=== PATIENT | male | born 1940 | race Caucasian/White ===

== ENCOUNTER 2021-04-15 14:46 | Emergency (ER) | payer MEDICARE, SELFPAY ==
[2021-04-15 14:47] VITALS: BP 133/67; PULSE 57; RESP 18; TEMP 37; O2SAT 96
[2021-04-15 15:28] LABS: Basophils Percent Auto 0.4 % (0.2-1.2); Eosinophils Absolute Auto 0.2 K/mm3 (0-0.3); Eosinophils Percent Auto 2.5 % (0-4.4); Hematocrit 41.8 % (42.0-52.0); Hemoglobin 13.5 g/dL (14.0-18.0); Immature Granulocyte Absolute 0.02 K/mm3 (0.00-0.031); Immature Granulocyte Percent A 0.2 % (0-0.5); Lymphocytes Absolute Auto 1.56 K/mm3 (0.9-3.2); Lymphocytes Percent Auto 18.8 % (18.3-44.2); Mean Corpuscular HGB Conc 32.3 g/dl (32-36); Mean Corpuscular Hemoglobin 30.8 pg (26-34); Mean Corpuscular Volume 95.4 fl (80-100); Mean Platelet Volume 11.1 fl (7.4-10.4); Monocytes Absolute Auto 0.5 K/mm3 (0.1-0.6); Monocytes Percent Auto 5.9 % (2.6-8.5); Neutrophils Percent Auto 72.2 % (45.5-73.1); Platelet Count Result 189 k/mm3 (150-375); Red Blood Count 4.38 M/mm3 (4.6-6.20); Red Cell Distribution Width 12.7 % (11.5-14.5); White Blood Count 8.3 K/mm3 (4.5-10.0)
[2021-04-15 15:35] LABS: Add Urine Microscopic? YES; Appearance Urine Cloudy (Clear); Bacteria Urine Trace /hpf; Bilirubin Urine Negative (Negative); Blood Urine 3+ (Negative); Color Urine Amber (Yellow); Glucose Urine UA Negative (Negative); Ketones Urine Negative (Negative); Leukocyte Esterase Ur 2+ LEU/UL (Negative); Mucus Urine Heavy /lpf; Nitrate Urine Negative (Negative); Protein Urine 2+ mg/dL (Negative); RBC Urine >75 /hpf (0-2); Squamous Epithelial Cell Urine Few /hpf (Few); WBC Urine >75 /hpf
[2021-04-15 15:39] LABS: Alanine Aminotransferase 34 U/L (4-50); Albumin Level 4.4 g/dL (3.5-5.1); Alkaline Phosphatase 74 U/L (38-126); Anion Gap 10 mmol/L (8-16); Aspartate Amino Transferase 33 U/L (17-59); Bilirubin,Total 0.7 mg/dL (0.2-1.3); Blood Urea Nitrogen 25 mg/dL (9-20); Calcium 9.3 mg/dL (8.4-10.2); Carbon Dioxide 25 mmol/L (22-30); Chloride 106 mmol/L (98-107); Estimated CRCL calculation 64 ml/min; Estimated Glomerular Filt Rate > 60; Glucose 137 mg/dL (65-110); Potassium 4.3 mmol/L (3.4-5.0); Sodium 141 mmol/L (137-145)
--- NOTE | 2021-04-15 16:34 | ED.MALEGU ---
HPI - Male Genitourinary General Chief complaint: Urogenital-Male Stated complaint: blood in urine Time Seen by Provider: 04/15/21 15:11 Source: patient Mode of arrival: ambulatory Limitations: no limitations History of Present Illness HPI Narrative: Patient is an 81 year old male who presents reporting blood in urine x 1 day. Patient reports awakening early am with difficulty urinating and urinary retention multiple times. Patient reports awakening again this afternoon and feeling like he was able to empty bladder. He reports dark urine with clots. He reports history of prostate cancer and prostatectomy. He denies pain at this time. He is not on blood thinners. Patient reports seeing urology in the past for same. Related Data Home Medications Medication Instructions Recorded Confirmed Co Q-10 08/25/19 Fish Oil 08/25/19 amlodipine 08/25/19 aspirin 08/25/19 loratadine [Claritin] mg 08/25/19 losartan 08/25/19 metoprolol tartrate 08/25/19 Allergies Allergy/AdvReac Type Severity Reaction Status Date / Time benazepril Allergy Unknown Unknown Verified 04/15/21 14:49 Wnkgaqv-Dqq-Rwg Reductase Allergy Unknown Unknown Verified 04/15/21 14:49 Inhibitor Review of Systems Review of Systems: Narrative: CONSTITUTIONAL: Denies fever, chills, or sweats. EYES: Denies visual changes, redness, or discharge. ENT: Denies rhinorrhea, congestion, sore throat, or otalgia. CARDIOVASCULAR: Denies chest pain, palpitations, or edema. RESPIRATORY: Denies cough or dyspnea. GASTROINTESTINAL: Denies abdominal pain, nausea, vomiting, or diarrhea. GENITOURINARY: Reports hematuria SKIN: Denies rash or itching. MUSCULOSKELETAL: Denies back pain, joint pain, or myalgia. NEUROLOGIC: Denies headache, numbness, dizziness, or weakness. PSYCHIATRIC: Denies anxiety or depression. [facility] Past Medical History Medical History (Updated 04/15/21 @ 16:48 by GREY Kaye) Basal cell carcinoma Brain bleed CAD (coronary artery disease) Constipation GERD (gastroesophageal reflux disease) Hepatitis B Hyperlipidemia Hypertension Hypothyroid Myocardial infarct Prediabetes Prostate CA Seizures Surgical History Surgical History H/O arthroscopy lt knee H/O prostatectomy Hx of CABG Hx of colonoscopy Hx of local excision of skin lesion S/P triple vessel bypass Family History Family History Father Malignant neoplasm of prostate Social History Social History Smoking status: Former smoker (quit at age 30 after 25 pack year) Gender identity (if verbalized by the patient): Male Comments At the time of signature, I have reviewed and agree with nursing past medical, surgical, social, and family history unless otherwise noted. Please see nursing chart for further information. There is no relevant family history pertinent to the presenting complaint. Exam Narrative: Exam Narrative: GENERAL: Well-appearing, well-nourished, and in no acute distress. HEAD: Normocephalic, atraumatic. EYES: EOMI. No redness or drainage. Conjunctiva are normal. ENT: Mucous membranes pink and moist. CHEST: No respiratory distress. Clear to auscultation. HEART: Regular rate and rhythm. GI: Soft, nontender without rebound, or guarding. No distention. Bowel sounds normal in all quadrants. MUSCULOSKELETAL: No bony tenderness. EXTREMITIES: Normal range of motion. No edema. SKIN: Warm, dry, no rash. NEURO: No focal deficits. Alert and oriented x3. Gait steady. PSYCH: Normal affect. No signs of depression or anxiety. Course Course Emergency Course: Bladder scan showed patient having approximately 50 mils in bladder after urination. Vital Signs Vital signs: Vital Signs Temperature 37.0 C 04/15/21 14:47 Pulse Rate 57 L 04/15/21 14:47 Respiratory Rate 18 04/15/21 14:47
[2021-04-15] MEDS: CIPROFLOXACIN 500 MG TAB PO (17:28)
[2021-04-15 17:29] VITALS: BP 142/74; PULSE 88; RESP 16; O2SAT 98
== END 2021-04-15 17:29 | disposition home or self-care (01) ==
PROVIDERS: Emergency Medicine; Emergency Provider Nurse Practitioner; PCP Family Medicine
DX: R31.9 Hematuria, unspecified (principal); I25.10 Atherosclerotic heart disease of native coronary artery without angina pectoris; E78.5 Hyperlipidemia, unspecified; I10 Essential (primary) hypertension; E03.9 Hypothyroidism, unspecified; I25.2 Old myocardial infarction; R73.03 Prediabetes; K21.9 Gastro-esophageal reflux disease without esophagitis; Z85.46 Personal history of malignant neoplasm of prostate; Z85.828 Personal history of other malignant neoplasm of skin; Z79.82 Long term (current) use of aspirin; Z95.1 Presence of aortocoronary bypass graft; Z90.79 Acquired absence of other genital organ(s); Z87.891 Personal history of nicotine dependence
CPT/HCPCS: 36415; 80053; 81001; 85025; 87077; 87086; 87088; 87186; 99283; A9270

== ENCOUNTER 2021-05-12 12:20 | Outpatient (CLI) | payer MEDICARE, SELFPAY ==
--- NOTE | ~2021-05-12 | XR_ITS ---
EXAMINATION: XR shoulder LT min 2V DATE: 05/12/2021 12:41 INDICATION: Left shoulder pain and stiffness. TECHNIQUE: 4 views of left shoulder were obtained. COMPARISON: None. FINDINGS: Bone alignment is normal. No fracture. Joint spaces are normal. Median sternotomy wires and mediastinal surgical clips are seen, likely from prior coronary artery bypass grafting. IMPRESSION: 1. Normal left shoulder. Reviewed, dictated and finalized at location B. IMPRESSION: 1. Normal left shoulder.
== END 2021-05-12 12:21 | disposition home or self-care (01) ==
PROVIDERS: PCP Family Medicine; Visit Provider Family Medicine
DX: M25.612 Stiffness of left shoulder, not elsewhere classified (principal)
CPT/HCPCS: 73030

== ENCOUNTER 2022-02-08 15:06 | Emergency (ER) | payer MEDICARE, SELFPAY ==
[2022-02-08] VITALS (14 sets, daily range): BP systolic 126–160; BP diastolic 62–78; PULSE 43–56; RESP 14–22; TEMP 36.5; O2SAT 93–98
--- NOTE | ~2022-02-08 | XR_ITS ---
EXAMINATION: XR chest 2V DATE: 02/08/2022 15:44 INDICATION: Dyspnea. TECHNIQUE: Frontal and lateral views of the chest were obtained. COMPARISON: Chest 2 views 11/26/2009, CT abdomen and pelvis 11/21/2018 FINDINGS: Again seen is mild elevation of left hemidiaphragm. A calcified right lung nodule and calci fied right hilar lymph nodes are consistent with old granulomatous disease. There is mild scarring at the lung apices. No pleural effusion or pneumothorax. The heart size is normal. Median sternotomy wi res and mediastinal surgical clips are seen, likely from prior coronary artery bypass grafting. IMPRESSION: 1. Stable mild scarring at the lung apices. Reviewed, dictated and finalized at location A.
--- NOTE | 2022-02-08 15:19 | ECG_ITS ---
Measurements Intervals Pauline Rate: 47 P: -1 WA: 167 QRS: 2 QRSD: 102 T: 15 QT: 420 QTc: 373 Interpretive Statements SINUS BRADYCARDIA ABNORMAL ECG Electronically Signed On 02-08-2022 15:29:57 CDT by Servando Cortez D.O.
--- NOTE | 2022-02-08 15:31 | ED.SOB ---
HPI - SOB/Dyspnea General Chief Complaint: Shortness of Breath/Dyspnea Stated Complaint: sob x 3 days Time Seen by Provider: 02/08/22 15:14 Source: patient History of Present Illness HPI Narrative: Patient presents with shortness of breath. Daniella has had shortness of breath for the past couple x-rays described a sensation of not getting enough air. His leg symptoms are little worse when he lays flat he denies any chest pain, cough, fevers, chills, nausea, vomiting, diaphoresis. Does report a history of a CABG many years ago however today symptoms are very different than his symptoms at that time. Related Data Home Medications Medication Instructions Recorded Confirmed Co Q-10 08/25/19 05/11/21 Fish Oil 08/25/19 05/11/21 amlodipine 08/25/19 05/11/21 aspirin 08/25/19 05/11/21 loratadine [Claritin] mg 08/25/19 05/11/21 losartan 08/25/19 05/11/21 metoprolol tartrate 08/25/19 05/11/21 Allergies Allergy/AdvReac Type Severity Reaction Status Date / Time benazepril Allergy Unknown Unknown Verified 05/11/21 12:53 Zkaqvjb-RWP-VhB Reductase Allergy Unknown Unknown Verified 05/11/21 12:53 Inhibitor [Dzlryig-Kpq-Lrb Reductase Inhibitor] Review of Systems Review of Systems: CONSTITUTIONAL: Denies fever, chills, or sweats. EYES: Denies visual changes, redness, or discharge. ENT: Denies rhinorrhea, congestion, sore throat, or otalgia. CARDIOVASCULAR: Denies chest pain, palpitations. RESPIRATORY: Reports shortness of breath GASTROINTESTINAL: Denies abdominal pain, nausea, vomiting, or diarrhea. GENITOURINARY: Denies dysuria or hematuria. SKIN: Denies rash or itching. MUSCULOSKELETAL: Denies back pain, joint pain, or myalgia. NEUROLOGIC: Denies headache, numbness, dizziness, or weakness. PSYCHIATRIC: Denies anxiety or depression. All systems reviewed & are unremarkable except as noted in HPI and below PMFSH Past Medical History Medical History Basal cell carcinoma BMI 31.0-31.9,adult Brain bleed CAD (coronary artery disease) Constipation Decreased ROM of left shoulder Elevated glucose GERD (gastroesophageal reflux disease) Hepatitis B Hyperlipidemia Hypertension Hypothyroid Myocardial infarct Prediabetes Prostate CA Screening for prostate cancer Seizures Surgical History Surgical History H/O arthroscopy lt knee H/O prostatectomy Hx of CABG Hx of colonoscopy Hx of local excision of skin lesion S/P triple vessel bypass Family History Family History Father Malignant neoplasm of prostate Social History Social History Smoking status: Former smoker Alcohol intake: never Gender identity (if verbalized by the patient): Male Exam Narrative: GENERAL: Well-appearing, well-nourished, and in no acute distress. HEAD: Normocephalic, atraumatic. EYES: PERRLA and EOMI. ENT: Nares clear, no rhinorrhea or epistaxis. Mucous membranes moist. NECK: Supple. No masses. No JVD CHEST: Clear to auscultation. No respiratory distress. No wheezes rales or rhonchi HEART: Regular bradycardia. No murmur heard. Normal peripheral pulses. ABDOMEN: Soft, nontender, nondistended, normal active bowel sounds. EXTREMITIES: Normal range of motion. 1+ pitting edema symmetric bilateral lower extremities SKIN: Warm, dry, no rash. NEURO: No focal deficits. Alert and oriented x3. PSYCH: Normal mood and affect. Course Reevaluation(s) Reevaluation #1: Patient resting comfortably results and plan reviewed with patient. Patient is comfortable with outpatient plan. Patient did an ambulatory pulse ox here in the ER there is no desaturation patient had no complaints during that time no dizziness no chest pain. Date: 02/08/22 Time: 17:25 Vital Signs Vital signs: Vital Signs Temperature 36.5 C 02/08
[2022-02-08 15:45] LABS: Basophils Absolute Auto 0.1 K/mm3 (0.0-0.1); Basophils Percent Auto 0.7 % (0.2-1.2); Eosinophils Absolute Auto 0.3 K/mm3 (0-0.3); Eosinophils Percent Auto 3.5 % (0-4.4); Hematocrit 41.7 % (42.0-52.0); Hemoglobin 13.7 g/dL (14.0-18.0); Immature Granulocyte Absolute 0.03 K/mm3 (0.00-0.031); Immature Granulocyte Percent A 0.4 % (0-0.5); Lymphocytes Absolute Auto 2.31 K/mm3 (0.9-3.2); Lymphocytes Percent Auto 32.8 % (18.3-44.2); Mean Corpuscular HGB Conc 32.9 g/dl (32-36); Mean Corpuscular Volume 94.3 fl (80-100); Mean Platelet Volume 11.6 fl (7.4-10.4); Monocytes Absolute Auto 0.5 K/mm3 (0.1-0.6); Monocytes Percent Auto 7.1 % (2.6-8.5); Neutrophils Absolute Auto 3.9 K/mm3 (1.3-6.7); Neutrophils Percent Auto 55.5 % (45.5-73.1); Platelet Count Result 198 k/mm3 (150-375); Red Blood Count 4.42 M/mm3 (4.6-6.20); Red Cell Distribution Width 12.7 % (11.5-14.5); White Blood Count 7.1 K/mm3 (4.5-10.0)
[2022-02-08 15:55] LABS: Alanine Aminotransferase 31 U/L (6-50); Albumin Level 4.3 g/dL (3.5-5.1); Alkaline Phosphatase 76 U/L (38-126); Anion Gap 10 mmol/L (8-16); Aspartate Amino Transferase 36 U/L (17-59); Bilirubin,Total 0.5 mg/dL (0.2-1.3); Blood Urea Nitrogen 23 mg/dL (9-20); Calcium 9.1 mg/dL (8.4-10.2); Carbon Dioxide 24 mmol/L (22-30); Chloride 106 mmol/L (98-107); Estimated CRCL calculation 64 ml/min; Estimated Glomerular Filt Rate > 60; Glucose 106 mg/dL (65-110); Potassium 4.7 mmol/L (3.4-5.0); Sodium 140 mmol/L (137-145)
[2022-02-08 16:13] LABS: Troponin I < 0.012 ng/mL (0.000-0.034)
== END 2022-02-08 17:42 | disposition home or self-care (01) ==
PROVIDERS: Emergency Provider Emergency Medicine; PCP Family Medicine
DX: R06.00 Dyspnea, unspecified (principal); I25.10 Atherosclerotic heart disease of native coronary artery without angina pectoris; I25.2 Old myocardial infarction; I10 Essential (primary) hypertension; E78.5 Hyperlipidemia, unspecified; E03.9 Hypothyroidism, unspecified; R73.03 Prediabetes; K21.9 Gastro-esophageal reflux disease without esophagitis; Z95.1 Presence of aortocoronary bypass graft; Z85.46 Personal history of malignant neoplasm of prostate; Z90.79 Acquired absence of other genital organ(s); Z79.82 Long term (current) use of aspirin; Z87.891 Personal history of nicotine dependence; R00.1 Bradycardia, unspecified
CPT/HCPCS: 36415; 71046; 80053; 84484; 85025; 93005; 99283

== ENCOUNTER 2022-07-11 12:33 | Emergency (ER) | payer MEDICARE, SELFPAY ==
[2022-07-11 12:48] VITALS: BP 143/63; PULSE 64; RESP 18; TEMP 36.7; O2SAT 99
--- NOTE | 2022-07-11 13:23 | ED.WOUNDLAC ---
HPI - Wound/Laceration General Chief Complaint: Wound/Laceration Stated Complaint: lac right hand Time Seen by Provider: 07/11/22 13:18 Source: patient Mode of arrival: ambulatory Limitations: no limitations History of Present Illness HPI narrative: Patient presents today with a laceration to the palm of his right hand that was sustained approximately 12 hours ago at home. He grabbed the blade of a small blending machine in his kitchen and it went into the palm of his hand reportedly approximately half an inch. He cleaned with peroxide after the injury. The wound has not stopped bleeding. Patient takes aspirin daily. Patient is up-to-date on his tetanus vaccine. Related Data Home Medications Medication Instructions Recorded Confirmed Co Q-10 08/25/19 05/15/22 Fish Oil 08/25/19 05/15/22 amlodipine 10 mg tablet 10 mg PO DAILY 05/15/22 07/11/22 aspirin 81 mg chewable tablet 1 tablet PO DAILY 05/15/22 05/15/22 loratadine 10 mg tablet (Claritin) 10 mg PO DAILY 05/15/22 05/15/22 losartan 25 mg tablet 25 mg PO DAILY 05/15/22 07/11/22 Allergies Allergy/AdvReac Type Severity Reaction Status Date / Time benazepril Allergy Unknown Unknown Verified 05/15/22 13:50 Ojwjdap-NCY-ShW Reductase Allergy Unknown Unknown Verified 05/15/22 13:50 Inhibitor [Ipzvxwp-Iem-Jog Reductase Inhibitor] Review of Systems Review of Systems: CONSTITUTIONAL: Denies body aches, fever, chills, or sweats. EYES: Denies visual changes, redness, or discharge. ENT: Denies rhinorrhea, congestion, sore throat, or otalgia. CARDIOVASCULAR: Denies chest pain, palpitations, or edema. RESPIRATORY: Denies cough or dyspnea. GASTROINTESTINAL: Denies abdominal pain, nausea, vomiting, or diarrhea. GENITOURINARY: Denies dysuria or hematuria. SKIN: Denies rash, itching. + Right hand laceration MUSCULOSKELETAL: Denies back pain, joint pain, or myalgia. NEUROLOGIC: Denies headache, numbness, tingling, or weakness. PSYCH: Denies depression or anxiety. [facility] Past Medical History Medical History Basal cell carcinoma BMI 31.0-31.9,adult BMI greater than 30 Brain bleed CAD (coronary artery disease) Constipation Decreased ROM of left shoulder Elevated glucose GERD (gastroesophageal reflux disease) Hepatitis B Hyperlipidemia Hypertension Hypothyroid Myocardial infarct Prediabetes Prostate CA Screening for prostate cancer Seizures Surgical History Surgical History H/O arthroscopy lt knee H/O prostatectomy Hx of CABG Hx of colonoscopy Hx of local excision of skin lesion S/P triple vessel bypass Family History Family History Father Malignant neoplasm of prostate Social History Social History Smoking status: Former smoker Alcohol intake: never Gender identity (if verbalized by the patient): Male Comments At time of signature, I have reviewed and agree with nursing past medical, surgical, social and family history unless otherwise noted. Please see nursing chart for further information. There is no relevant family history pertinent to the presenting complaint Exam Narrative: GENERAL: Well-appearing, well-nourished, and in no acute distress. HEAD: Normocephalic, atraumatic. EYES: EOMI. No redness or drainage. Conjunctivae normal. ENT: Mucous membranes pink and moist. NECK: Normal AROM. CHEST: No respiratory distress. EXTREMITIES: Normal range of motion. No edema. 1cm full thickness linear laceration to the palmar aspect of the right hand between the 2nd and 3rd metacarpals. Sensation intact. Capillary refill normal. Full range of motion of all fingers against resistance. Mild active bleeding. SKIN: Warm. Capillary refill normal. Normal skin turgor. NEURO: No focal deficits. Alert and
== END 2022-07-11 13:57 | disposition home or self-care (01) ==
PROVIDERS: Emergency Provider Nurse Practitioner; PCP Family Medicine
DX: S61.411A Laceration without foreign body of right hand, initial encounter (principal); W29.0XXA Contact with powered kitchen appliance, initial encounter; I25.10 Atherosclerotic heart disease of native coronary artery without angina pectoris; K21.9 Gastro-esophageal reflux disease without esophagitis; E78.5 Hyperlipidemia, unspecified; I10 Essential (primary) hypertension; E03.9 Hypothyroidism, unspecified; I25.2 Old myocardial infarction; R73.03 Prediabetes; Z85.46 Personal history of malignant neoplasm of prostate; Z85.828 Personal history of other malignant neoplasm of skin; Z90.79 Acquired absence of other genital organ(s); Z95.1 Presence of aortocoronary bypass graft
CPT/HCPCS: 12001; 99213; G0463

== ENCOUNTER 2023-01-11 12:56 | Outpatient (CLI) | payer MEDICARE, SELFPAY ==
--- NOTE | ~2023-01-11 | US_ITS ---
US scrotum doppler INDICATION: Evaluate growing mass TECHNIQUE: Testicular sonogram utilizing grayscale and color Doppler FINDINGS: The testes are normal in size and appearance. No focal lesions are seen. The right testes measures 4.5 x 4.8 x 2.1 cm centimeters, and the left testis measures 4 x 3 x 2 cm cm. There is cosme l vascular flow to both testes. The right and left epididymides appear normal. There are bilateral varicoceles. There is soft tissue protruding into the scrotal sac, likely bowel c ontent, consistent with hernia. IMPRESSION: 1. Bilateral varicoceles. 2: Right inguinal hernia with bowel protruding into the scrotal sac. Reviewed, dictated and finalized at location A.
== END 2023-01-11 12:57 | disposition home or self-care (01) ==
LOC: ANHIMG 12:58
PROVIDERS: PCP Family Medicine; Visit Provider Surgery
DX: I86.1 Scrotal varices (principal); K40.90 Unilateral inguinal hernia, without obstruction or gangrene, not specified as recurrent
CPT/HCPCS: 76870; 93976

== ENCOUNTER 2023-02-19 07:55 | Outpatient (CLI) | payer MEDICARE, SELFPAY ==
--- NOTE | ~2023-02-19 | XR_ITS ---
EXAMINATION: XR chest 2V DATE: 02/19/2023 08:30 INDICATION: Hypertension. Prior prostate cancer. TECHNIQUE: PA and lateral views of the chest were obtained. COMPARISON: Chest radiograph dated 02/08/2022 FINDINGS: Stable appearance of mild elevation of the left hemidiaphragm and mild biapical pleural-parenchymal s carring. Again seen is a small calcified pulmonary nodule at the right lower lung zone consistent wit h old granulomatous disease. No other airspace opacities, pulmonary edema, pleural effusion or pneumo thorax. Heart size is normal. Median sternotomy wires, ostial markers and mediastinal surgical clips consistent with prior coronary artery bypass grafting. Mild thoracic spondylosis. IMPRESSION: 1. No acute cardiopulmonary disease. Reviewed, dictated and finalized at location L.
--- NOTE | 2023-02-19 08:04 | ECG_ITS ---
Measurements Intervals [place] Rate: 75 P: TN: 0 QRS: 16 QRSD: 97 T: -11 QT: 372 QTc: 417 Interpretive Statements ATRIAL FIBRILLATION ABNORMAL ECG COMPARED TO ECG 02/08/2022 15:20:22 ATRIAL FIBRILLATION NOW PRESENT Electronically Signed On 02-19-2023 8:35:58 CDT by Servando Cortez D.O.
[2023-02-19 08:24] LABS: Basophils Percent Auto 0.6 % (0.2-1.2); Eosinophils Absolute Auto 0.2 K/mm3 (0-0.3); Eosinophils Percent Auto 2.5 % (0-4.4); Hematocrit 41.4 % (42.0-52.0); Hemoglobin 13.3 g/dL (14.0-18.0); Immature Granulocyte Absolute 0.02 K/mm3 (0.00-0.031); Immature Granulocyte Percent A 0.3 % (0-0.5); Lymphocytes Absolute Auto 2.31 K/mm3 (0.9-3.2); Lymphocytes Percent Auto 34.3 % (18.3-44.2); Mean Corpuscular HGB Conc 32.1 g/dl (32-36); Mean Corpuscular Hemoglobin 30.7 pg (26-34); Mean Corpuscular Volume 95.6 fl (80-100); Mean Platelet Volume 10.8 fl (7.4-10.4); Monocytes Absolute Auto 0.5 K/mm3 (0.1-0.6); Monocytes Percent Auto 6.8 % (2.6-8.5); Neutrophils Absolute Auto 3.7 K/mm3 (1.3-6.7); Neutrophils Percent Auto 55.5 % (45.5-73.1); Platelet Count Result 178 k/mm3 (150-375); Red Blood Count 4.33 M/mm3 (4.6-6.20); Red Cell Distribution Width 13.2 % (11.5-14.5); White Blood Count 6.7 K/mm3 (4.5-10.0)
[2023-02-19 08:29] LABS: Anion Gap 7 mmol/L (8-16); Blood Urea Nitrogen 19 mg/dL (9-20); Calcium 8.5 mg/dL (8.4-10.2); Carbon Dioxide 29 mmol/L (22-30); Chloride 104 mmol/L (98-107); Estimated Glomerular Filt Rate > 60; Glucose 106 mg/dL (65-110); Potassium 4.3 mmol/L (3.4-5.0); Sodium 140 mmol/L (137-145)
== END 2023-02-19 07:56 | disposition home or self-care (01) ==
PROVIDERS: PCP Family Medicine; Visit Provider Surgery
DX: K40.90 Unilateral inguinal hernia, without obstruction or gangrene, not specified as recurrent (principal); I48.91 Unspecified atrial fibrillation; R94.31 Abnormal electrocardiogram [ECG] [EKG]
CPT/HCPCS: 36415; 71046; 80048; 85025; 86850; 86900; 86901; 93005

== ENCOUNTER 2023-04-12 12:44 | Emergency (ER) | payer MEDICARE, SELFPAY ==
[2023-04-12 13:02] VITALS: BP 124/79; PULSE 78; RESP 20; TEMP 36.8; O2SAT 98
--- NOTE | 2023-04-12 13:12 | ED.SKABFB ---
HPI - Skin/Abscess/Foreign Bdy General Chief complaint: Skin/Abscess/Foreign Body Stated complaint: Insect Bite Time Seen by Provider: 04/12/23 13:03 Source: patient, family () and RN notes reviewed Mode of arrival: ambulatory Limitations: no limitations History of Present Illness HPI narrative: Patient presents today complaining of multiple yellow jacket stings to his bilateral hands, left forearm, and bilateral ankles as well as his upper lip yesterday. He was mowing and hit a nest. He has been taking Benadryl and applying some topical Benadryl cream with some relief. States he feels fine today, but wanted to come in for evaluation. Related Data Home Medications Medication Instructions Recorded Confirmed Co Q-10 200 mg QAM 08/25/19 04/12/23 Fish Oil 1,030 mg QAM 08/25/19 04/12/23 amlodipine 10 mg tablet 10 mg PO DAILY 05/15/22 04/12/23 aspirin 81 mg chewable tablet 2 tablet PO DAILY 05/15/22 04/12/23 loratadine 10 mg tablet (Claritin) 10 mg PO DAILY 05/15/22 04/12/23 losartan 25 mg tablet 25 mg PO DAILY 05/15/22 04/12/23 rivaroxaban 15 mg tablet (Xarelto) 15 mg PO DIRECTED 04/12/23 04/12/23 Allergies Allergy/AdvReac Type Severity Reaction Status Date / Time benazepril Allergy Unknown Unknown - Verified 04/12/23 12:54 PT UNABLE TO RECALL Cuzabvs-RQE-VrA Reductase Allergy Unknown Joint Pain Verified 04/12/23 12:54 Inhibitor & MUSCLE [Febpipu-Ydz-Dmp Reductase WEAKNESS Inhibitor] Review of Systems Review of Systems: CONSTITUTIONAL: Denies body aches, fever, chills, or sweats. EYES: Denies visual changes, redness, or discharge. ENT: Denies rhinorrhea, congestion, sore throat, or otalgia. CARDIOVASCULAR: Denies chest pain, palpitations, or edema. RESPIRATORY: Denies cough or dyspnea. GASTROINTESTINAL: Denies abdominal pain, nausea, vomiting, or diarrhea. GENITOURINARY: Denies dysuria or hematuria. SKIN: + insect sting MUSCULOSKELETAL: Denies back pain, joint pain, or myalgia. NEUROLOGIC: Denies headache, numbness, tingling, or weakness. PSYCH: Denies depression or anxiety. [facility] Past Medical History Medical History Basal cell carcinoma BMI 31.0-31.9,adult BMI greater than 30 Brain bleed CAD (coronary artery disease) Constipation Decreased ROM of left shoulder Elevated glucose GERD (gastroesophageal reflux disease) Hepatitis B Hyperlipidemia Hypertension Hypothyroid Myocardial infarct Prediabetes Prostate CA Screening for prostate cancer Seizures Surgical History Surgical History H/O arthroscopy lt knee H/O prostatectomy Hx of CABG 11/2009 - triple bypass surgery at [facility] Hx of colonoscopy 2012 - Dr. Yen Hx of local excision of skin lesion Family History Family History Father Malignant neoplasm of prostate Sibling Malignant neoplasm of prostate Social History Social History Smoking packs per day: 2 Smoking cigarettes per day: 40.0 Years smoked: 12 Smoking pack-years: 24.00 Smoking status: Former smoker Tobacco type: cigarettes Second hand tobacco smoke exposure: No Smoking end date: 09/23/70 Alcohol intake: current Alcohol use details: STATES MAYBE 1/2 CASE BEER/YEAR Substance use: never Substance use type: does not use Living arrangements: with family Occupation/Education: retired Gender identity (if verbalized by the patient): Male Spiritual care concerns: No Comments At time of signature, I have reviewed and agree with nursing past medical, surgical, social and family history unless otherwise noted. Please see nursing chart for further information. There is no relevant family history pertinent to the presenting complaint Exam Narrative: GENERAL: Well-ap
== END 2023-04-12 13:17 | disposition home or self-care (01) ==
PROVIDERS: Emergency Provider Nurse Practitioner; PCP Family Medicine
DX: T63.461A Toxic effect of venom of wasps, accidental (unintentional), initial encounter (principal); Z87.891 Personal history of nicotine dependence; I25.10 Atherosclerotic heart disease of native coronary artery without angina pectoris; K21.9 Gastro-esophageal reflux disease without esophagitis; E78.5 Hyperlipidemia, unspecified; I10 Essential (primary) hypertension; E03.9 Hypothyroidism, unspecified; R73.03 Prediabetes; Z85.828 Personal history of other malignant neoplasm of skin; Z85.46 Personal history of malignant neoplasm of prostate; Z79.01 Long term (current) use of anticoagulants; Z79.82 Long term (current) use of aspirin; Z95.1 Presence of aortocoronary bypass graft
CPT/HCPCS: 99211; G0463

== ENCOUNTER 2023-08-03 13:16 | Inpatient (IN) | payer MEDICARE, SELFPAY ==
[2023-07-30 10:21] VITALS: BMI 31.9
--- NOTE | 2023-07-30 10:36 | PC.NURSE ---
Report to the Outpatient Waiting Room, entrance under the green pavilion located off [facility], at time __0900 on date __08/02/23 . Planned Procedure Time: __1200 . Time changes happen often and if your time is changed the preop area will call you the afternoon before. - You and your visitor will be asked to self-screen and do not enter if you have any COVID symptoms. - A mask is optional within the hospital at this time. Patients may have clear liquids (water, carbonated beverages, clear teas, apple juice) until 3 hours prior to surgery (0900 AM) with a maximum of 20 ounces. - No food from midnight until time of surgery - Infants may have breast milk until 4 hours before surgery, infant formula 6 hours prior to surgery. - Children will be allowed to drink immediately following surgery. If applicable, please bring a bottle or sippy cup to assist with drinking. Juice, water, soda, and popsicles are readily available. For infants on formula, please bring formula the day of surgery. Pacifiers are allowed. Take the following medications with a SIP of water the morning of surgery: _AMLODIPINE, LEVOTHYROXINE_ DO NOT STOP ANY OF YOUR OTHER PRESCRIPTION MEDICATIONS PRIOR TO SURGERY ?EXCEPT THE FOLLOWING Medications to discontinue per DR. COOK/DR. PENNY - _XARELTO - 2 DAYS PRIOR TO SURGERY Date to take last dose___07/29/23 Please no make-up, nail south african, hairspray, perfume, deodorant, or body powder the day of surgery. No jewelry (including any body piercings) or valuables the day of surgery, leave them at home. Please take a shower or bath the night before, or the morning of, surgery with an antibacterial soap. Wear comfortable, loose fitting clothing. Children are encouraged to wear pajamas. - Jewelry must be removed prior to entering the operating room. Rings and piercings that are not removed may be cut off. - The hospital will not accept responsibility for valuables. - Please leave all valuables, including medications, at home the day of surgery. If you are going home after surgery, a licensed local company flatbed truck driver must drive you home. - NO public transportation without another adult if you receive anesthesia. - We recommend that an adult stay with you for 24 hours following discharge. - We also recommend that you do not drive, make important decision, drink alcoholic beverages, or take any drugs that were not prescribed by your health care provider for at least 24 hours after your discharge time. For Pediatric surgeries, we recommend two adults accompany the child home. Follow any additional instructions given to you from your surgeon. If you or anyone in your household have experienced Covid symptoms in the past week, please notify your surgeon or the nurse liaison at the phone number below for possible testing. Telephone instructions given to ____PT and asked if any additional questions and then verbalized understanding. Patient advised to call surgeon office or pre surgery nurse liaison [phone] if any additional questions.
--- NOTE | 2023-08-01 12:58 | PM.IMHP ---
H&P: HPI History of Present Illness Date/Time: 08/01/23 12:58 Chief Complaint: Large right inguinal hernia Narrative: The patient is an 83-year-old man who has had a right inguinal hernia for many years. He was seen in the office last spring and found to have right inguinal hernia that extended through the inguinal canal and also occupied the right hemiscrotum. He had a scrotal ultrasound several months ago which showed bilateral varicoceles and also bowel protruding into the right-sided hernia. Patient was scheduled to have surgery February 21, 2023 but this was canceled due to cardiac concerns. He had further testing and was then felt to be medically optimized to proceed. He does take Xarelto which has been held. He is taken to surgery now for repair of a very large right inguinal hernia. Also no repair the is the patient has a history of intracranial hemorrhage, coronary artery bypass grafting as well as prostatectomy for prostate cancer. Review of Systems Review of Systems: All systems reviewed & are unremarkable except as noted in HPI and below (HPI and those items noted below) Constitutional: Constitutional: Denies chills and Denies fever(s) Cardiovascular: Cardiovascular: Denies chest pain, Denies diaphoresis, Denies dyspnea and Denies paroxysmal nocturnal dyspnea Respiratory: Respiratory: Denies chest congestion, Denies cough and Denies dyspnea Integumentary/Breasts: Skin/Breast: Denies lesions and Denies rash PMFSH Past Medical History Medical History Basal cell carcinoma BMI 31.0-31.9,adult BMI 32.0-32.9,adult BMI greater than 30 Brain bleed CAD (coronary artery disease) Constipation Decreased ROM of left shoulder Elevated glucose GERD (gastroesophageal reflux disease) Hepatitis B Hyperlipidemia Hypertension Hypothyroid Myocardial infarct Paroxysmal atrial fibrillation Prediabetes Prostate CA Screening for prostate cancer Seizures Surgical History Surgical History H/O arthroscopy lt knee H/O prostatectomy Hx of CABG 11/2009 - triple bypass surgery at [facility] [place] Hx of colonoscopy 2012 - Dr. Yen Hx of local excision of skin lesion Family History Family History Father Malignant neoplasm of prostate Sibling Ovarian cancer Mother , epilepsy No problems noted. Sibling No problems noted. Social History Social History Smoking packs per day: 2 Smoking cigarettes per day: 40.0 Years smoked: 12 Smoking pack-years: 24.00 Smoking status: Former smoker Tobacco type: cigarettes Second hand tobacco smoke exposure: No Smoking end date: 09/23/70 Alcohol intake: current Alcohol use details: RARELY - 1/2 CASE BEER/YR Substance use: never Substance use type: does not use Lack of Transportation: No Lack of Food: Never True Current Housing: I Have Housing Concerned About Future Housing: No Difficulty Paying Gas/Electric Bills: No Difficulty Paying for Meds: No Currently Unemployed: No Education: High School Diploma/GED Difficulty w/ Childcare or Family Care: No Living arrangements: with family Occupation/Education: retired 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
[2023-08-02] VITALS (13 sets, daily range): BP systolic 109–156; BP diastolic 67–88; PULSE 70–102; RESP 14–30; TEMP 36.7–37.2; O2SAT 92–100
[2023-08-02] MEDS: ACETAMINOPHEN 500 MG TABLET 1000 MG PO (10:21)
[2023-08-02] MEDS: LACTATED RINGERS 1,000 ML 30 ML IV CONT ×2 (11:05→14:17)
[2023-08-02] MEDS: KETOROLAC 15 MG/ML VIAL (*BKC) IV PUSH (11:05)
--- NOTE | 2023-08-02 11:10 | WPDANESEPPF ---
Anes - Initial Pre Proc Eval Procedure: Operation Date: 08/02/23 12:00 Proposed Procedures p Open Right Inguinal Hernia Repair with Mesh - Jaxon Armijo MD Date/Time: 08/02/23 11:10 Surgeon: Jaxon Armijo MD Pre Op Diagnosis: right inguinal hernia Patient Data Age: 83 Gender: M Height: 1.83 m Weight: 106.3 kg Last Vital Signs Temp 98.4 F 08/02/23 10:30 Pulse 70 08/02/23 10:30 Resp 16 08/02/23 10:30 BP 134/81 08/02/23 10:30 Pulse Ox 97 08/02/23 10:30 O2 Del Method Room Air 08/02/23 10:30 Allergies Allergy/AdvReac Type Severity Reaction Status Date / Time benazepril Allergy Unknown Unknown - Verified 08/02/23 10:15 PT UNABLE TO RECALL Ihbsxut-UVZ-XsO Reductase Allergy Unknown Joint Pain Verified 08/02/23 10:15 Inhibitor & MUSCLE [Nspfsvb-Nix-Ktg Reductase WEAKNESS Inhibitor] halobetasol AdvReac Rash Verified 08/02/23 10:15 Home Medications Medication Instructions Recorded Confirmed Type amlodipine 10 mg tablet 10 mg PO DAILY 05/15/22 08/02/23 History aspirin 81 mg chewable tablet 2 tablet PO DAILY 05/15/22 08/02/23 History loratadine 10 mg tablet (Claritin) 10 mg PO DAILY 05/15/22 08/02/23 History losartan 25 mg tablet 25 mg PO DAILY 05/15/22 08/02/23 History levothyroxine 100 mcg tablet 100 mcg PO DAILY #90 tabs 06/10/23 08/02/23 Rx coenzyme Q10 30 mg capsule (Co 30 mg PO DAILY 06/11/23 08/02/23 History Q-10) omega 4-ung-wix-fish oil 60 mg-90 1 cap PO DAILY 06/11/23 08/02/23 History mg-500 mg capsule (Fish Oil) rivaroxaban 20 mg tablet (Xarelto) 20 mg PO QPM 07/30/23 08/02/23 History Patient hx anesthesia problems: none Family hx anesthesia problems: none Results Review: All pre-operative results and documents have been reviewed as part of the pre-operative evaluation. [facility] Past Medical History Medical History Basal cell carcinoma BMI 31.0-31.9,adult BMI 32.0-32.9,adult BMI greater than 30 Brain bleed CAD (coronary artery disease) Constipation Decreased ROM of left shoulder Elevated glucose GERD (gastroesophageal reflux disease) Hepatitis B Hyperlipidemia Hypertension Hypothyroid Myocardial infarct Paroxysmal atrial fibrillation Prediabetes Prostate CA Screening for prostate cancer Seizures Surgical History Surgical History H/O arthroscopy lt knee H/O prostatectomy Hx of CABG 11/2009 - triple bypass surgery at [facility] Hx of colonoscopy 2012 - Dr. Yen Hx of local excision of skin lesion Family History Family History Father Malignant neoplasm of prostate Sibling Ovarian cancer Mother , epilepsy No problems noted. Sibling No problems noted. Social History Social History Smoking packs per day: 2 Smoking cigarettes per day: 40.0 Years smoked: 12 Smoking pack-years: 24.00 Smoking status: Former smoker Tobacco type: cigarettes Second hand tobacco smoke exposure: No Smoking end date: 09/23/70 Alcohol intake: current Alcohol use details: RARELY - 1/2 CASE BEER/YR Substance use: never Substance use type: does not use Lack of Transportation: No Lack of Food: Never True Current Housing: I Have Housing Concerned About Future Housing: No Difficulty Paying Gas/Electric Bills: No Difficulty Paying for Meds: No Currently Unemployed: No Education: High School Diploma/GED Difficulty w/ Childcare or Family Care: No Living arrangements: with family Occupation/Education: retired 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
--- NOTE | 2023-08-02 11:47 | WPDHPUPDATE1 ---
History and Physical Update Update Date/Time: 08/02/23 11:47 History and Physical has been reviewed, including an updated exam of the patient. There are NO changes in the patient's condition. Risks, benefits, and alternatives have been discussed and questions answered. Patient agrees to proceed with procedure.
[2023-08-02] MEDS: ceFAZolin 2 GM/D5W 50 ML 2 GM/50 ML BAG IVPB (12:00)
[2023-08-02] MEDS: LIDO 1%/EPINEPHRINE 1:100,000 50 ML VIAL INFILTRATE (13:59)
--- NOTE | 2023-08-02 14:40 | W.PM.PROC2 ---
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 Not only did the hernia go into the scrotum but the scrotum was greatly enlarged due to the bowel that had traversed the hernia defect and was residing in his abdomen. This had become very uncomfortable with the scrotal enlargement and longstanding hernia. Findings Very large right inguinal hernia with at least 70% of his small intestine chronically viscera rated in the hernia sac residing in the scrotum. There was not any evidence of a sliding hernia. Procedure lasted twice as long as normal. Huge hernia had be dissected out of the scrotum and then hernia sac opened with bowel slowly reintroduced into the abdomen. Extra-large plug and patch of PerFix Light was required for the defect. Description of Procedure Patient was taken to surgery and anesthesia was introduced. This was general anesthesia with LMA. The right inguinal region as well as the greatly enlarged scrotum and the rest of the genitalia were prepped and draped. Proposed incision was marked on the skin. Local was infiltrated in the area of the anticipated incision and in the deeper subcutaneous tissues. Incision was made and dissection was carried down through the subcutaneous and through Reji's fascia. At that point we encountered the extremely large hernia. I dissected back to where I could find the external oblique aponeurosis laterally. I had to use 2 very large self-retaining retractors to expose the area. I exposed the external oblique aponeurosis laterally and exposed the hernia as it emanated from the external ring. Additional local was infiltrated deep to the external oblique aponeurosis. I then opened the aponeurosis laterally and extended this incision medially through the external ring. The ilioinguinal nerve was diminutive where it exited the external ring. I divided the ileoinguinal nerve and discarded it. I then carefully dissected around the hernia at the level of the pubic tubercle. I divided some of the cremasteric fibers in this location to mobilize this part of the hernia further. At this point I then dissected in the anteromedial cord looking to find the hernia sac. There were several layers of filmy and distorted tissue. Eventually I came to what appeared to be the hernia sac. I then carefully dissected this from the layers associated with the spermatic cord and scrotum. Slowly the bowel and herniated contents were brought up out of the scrotum and were then in the field created by the inguinal hernia dissection. This was essentially bloodless. Cautery had been used for hemostasis but there was little need for cautery. I then carefully dissected the spermatic cord and its structures away from the hernia sac. These were caudal and lateral to the main hernia. As I tried further mobilize the hernia sac I went ahead and divided the sac. I divided it had a significant length expecting to be able to bring the herniated bowel out and reduce this bowel segment by segment. As I did this, I realized that this was actually not the hernia sac. There was a deeper hernia sac. I then dissected out this tissue and discarded it. Now having the actual hernia sac I opened the hernia sac and was able to access the chronically eviscerated bowel. I followed this back to the indirect hernia defect which was sizable as 1 might expect. I then used a ring forceps and carefully introduced the small bowel back into the abdomen. This was a slow, difficult process as there was so much chronically incarcerated bowel that the defect to reduce the bowel was quite small. Eventually, I was able to reduce enough of the smal
[2023-08-02] MEDS: LACTATED RINGERS 1,000 ML 100 ML IV CONT (17:00)
[2023-08-02 17:03] LABS: Estimated CRCL calculation 77 ml/min; Estimated Glomerular Filt Rate > 60
[2023-08-02] MEDS: ACETAMINOPHEN 500 MG TABLET PO (18:38)
[2023-08-02] MEDS: SIMETHICONE 80 MG TAB.CHEW PO (20:13)
--- NOTE | 2023-08-02 20:26 | PC.NURSE ---
pt up and ambulated to restroom this shift x1 assist with walker.
[2023-08-02] MEDS: HYDROcodone/acetaminophen (*CRX) 7.5-325 MG TABLET 1 TAB PO (20:43)
[2023-08-02] MEDS: IBUPROFEN IV 800 MG/200 ML 800 MG/200 ML BAG 400 MG IVPB (20:48)
[2023-08-03] VITALS (7 sets, daily range): BP systolic 92–120; BP diastolic 59–72; PULSE 77–116; RESP 18–24; TEMP 36.3–36.9; O2SAT 91–97
--- NOTE | ~2023-08-03 | XR_ITS ---
Portable chest x-ray Comparison: 08/19/2023 Clinical History: Respiratory failure Findings: Endotracheal tube and right-sided PICC line are in place. There is linear left basilar sca rring or atelectasis. Right lung clear. Cardiomediastinal silhouette is stable. Bones and soft tissu es are unremarkable. Impression: Stable support tubes. Linear left basilar scarring or atelectasis, unchanged. Reviewed, dictated and finalized at location . 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 Linear left basilar scarring or atelectasis, unchanged.
--- NOTE | ~2023-08-03 | CT_ITS ---
EXAMINATION: CT abdomen pelvis wo con DATE: 08/22/2023 12:59 INDICATION: Fever. Abdominal abscess. TECHNIQUE: Computed tomography (CT) of the abdomen and pelvis was performed without intravenous contr ast. Automated exposure control and iterative reconstruction technique were employed. The dose-length product was 1402.29 mGy-cm. COMPARISON: CT abdomen and pelvis 08/18/2023 FINDINGS: The visualized portions of the lung bases demonstrate mild atelectasis. Calcified lung nodu les and calcified hilar lymph nodes are consistent with old granulomatous disease. There are trace pl eural effusions. The heart size is normal. There are coronary artery calcifications. No pericardial e ffusion. There are calcifications of aortic valve. The nasogastric tube tip is in the stomach. Calcif ications in the liver and spleen are consistent with old granulomatous disease. The gallbladder is de compressed by a cholecystostomy tube. The pancreas and adrenal glands are normal. There is cortical t hinning of the kidneys. 4 percutaneous drains are noted. Again seen is a hematoma in right inguinal r egion. There is diverticulosis of the colon without evidence of diverticulitis. The appendix is not v isualized. There is widespread stranding of the intra-abdominal fat, consistent with inflammation. Th ere is an umbilical hernia containing fat. There are no pathologically enlarged lymph nodes. There is mild thoracic and lumbar spondylosis. IMPRESSION: 1. Four percutaneous abscess drains. No significant residual abscess. 2. Percutaneous cholecystostomy tube with decompressed gallbladder. 3. Stable right inguinal hematoma. Reviewed, dictated and finalized at location A. ATION INSTRUCTOR
--- NOTE | ~2023-08-03 | CT_ITS ---
EXAMINATION: CT chest abdomen pelvis wo con DATE: 08/15/2023 11:44 INDICATION: Respiratory failure TECHNIQUE: Transaxial computed tomographic images of the chest, abdomen, and pelvis were obtained wit hout intravenous contrast. The dose-length product (DLP) was 1810.15 mGy-cm. Automated exposure contr ol and iterative reconstruction technique were employed. COMPARISON: 08/13/2023 FINDINGS: CHEST CT: There are small pleural effusions. There are dependent airspace opacities of the lungs. There is no p neumothorax. There is left atrial enlargement of the heart. No pathologically enlarged thoracic lymph nodes are identified. There are changes of coronary artery bypass grafting. There is mild thoracic s pondylosis. The endotracheal tube is in adequate position. ABDOMEN/PELVIS CT: The nasogastric tube is in the stomach. Punctate calcifications in otherwise normal appearing liver a nd spleen likely represent healed granulomatous disease. The pancreas and adrenal glands are normal. The gallbladder is decompressed by a cholecystostomy tube. There are areas of cortical thinning of th e kidneys. There is calcified atherosclerosis of the aorta and many of the other arteries. No patholo gically enlarged abdominal or pelvic lymph nodes are identified. There are no dilated loops of bowel. The bladder is decompressed by Weathers catheter. There is been an overall insertion of five new percutaneous drains. Each of the abscess cavities has decreased in size. There is a persistent percutaneous drain coiling in the pelvis anterior to the rec balaji without significant change. There has been interval decrease in size of a left pelvic abscess (im age 89) which appears to be connected to one of the larger abscesses now containing a percutaneous d rain. There is also decrease in a midline pelvic abscess abutting the pelvic drainage catheter (image 217). There is an unchanged mass of the right inguinal canal containing gas. IMPRESSION: 1. Multiple abdominal abscesses with interval improvement status post percutaneous drainage placement . 2. Small pleural effusions. 3. Bibasilar airspace opacities, consistent with atelectasis versus pneumonia. 4. Stable mass involving the right inguinal canal, probable infected hematoma. Reviewed, dictated and finalized at location F. TAL CAMPAIGN MANAGER IMPRESSION: 1. Multiple abdominal abscesses with interval improvement status post percutane ous drainage placement. 2. Small pleural effusions. 3. Bibasilar airspace opacities, consistent with atelectasis versus pneumonia. 4. Stable mass involving the right inguinal canal, probable infected hematoma.
--- NOTE | ~2023-08-03 | XR_ITS ---
XR abdomen gastric tube insert INDICATION: Evaluate NG tube position. TECHNIQUE: Limited KUB perform for evaluating NG tube . COMPARISON: 08/15/2023 FINDINGS: NG tube tip in the stomach. Visualized bowel gas pattern is unremarkable.Median sternotomy wires are present. IMPRESSION: 1: NG tube tip in the stomach. Reviewed, dictated and finalized at location L. FING MACHINE OPERATOR
--- NOTE | ~2023-08-03 | US_ITS ---
EXAMINATION: US perc cholecystostomy w imag DATE: 08/06/2023 15:15 INDICATION: Sepsis. Gallbladder distention. TECHNIQUE: Consent was obtained from the patient's family member. The skin overlying the liver and ga llbladder was prepped and draped in usual sterile fashion. Anesthetic was administered with 1% lidoc aretha subcutaneously. An 8.5 Fr catheter was inserted into the gallbladder by trocar technique. The m etal stiffener and trocar needle were removed, and the pigtail tip was locked. Bile was aspirated and sent for culture. The catheter was stitched to the skin with suture. There were no immediate complic ations. FINDINGS: Ultrasound images demonstrate the catheter within the gallbladder. 10 mL bile was aspirated . IMPRESSION: 1. Successful ultrasound-guided cholecystostomy tube placement. 2. 10 mL black bile was sent for aerobic and anaerobic cultures. 3. A catheter cholangiogram may be performed not less than 48 hours after tube placement if clinicall y indicated to assess cystic duct patency. If cholecystectomy is not eventually performed and the inf ectious episode has resolved, the tube may be removed over a guidewire, preferably not less than 3 we eks after placement to allow time for a mature catheter tract to form to prevent bile leakage and per itonitis. Reviewed, dictated and finalized at location A. N SHIPPER IMPRESSION: 1. Successful ultrasound-guided cholecystostomy tube placement. 2. 10 mL black bile was sent for aerobic and anaerobic cultures. 3. A catheter cholangiogram may be performed not less than 48 hours after tube placement if clinically indicated to assess cystic duct patency. If cholecystec joseph is not eventually performed and the infectious episode has resolved, the t ube may be removed over a guidewire, preferably not less than 3 weeks after weston cement to allow time for a mature catheter tract to form to prevent bile leakag e and peritonitis.
--- NOTE | ~2023-08-03 | CT_ITS ---
EXAMINATION: CT abdomen pelvis wo con DATE: 09/18/2023 15:19 INDICATION: Abdominal abscess TECHNIQUE: Computed tomography (CT) of the abdomen and pelvis was performed without intravenous contr ast. Automated exposure control and iterative reconstruction technique were employed. The dose-length product was 1747.16 mGy-cm. COMPARISON: 09/11/2023 FINDINGS: Decrease in size of small bilateral posterior layering pleural effusions with dependent atelectasis i n the bilateral lower lobes and visualized portion of the inferior right upper lobe. Heart size is no rmal. No pericardial effusion. Atherosclerotic coronary artery disease with change of prior median st ernotomy and coronary artery bypass grafting. Caudal tip of a likely central venous catheter is seen at the caudal superior vena cava. Nasogastric tube with tip in proximal side port in the body of the stomach. Hepatic and splenic calcifications consistent with old granulomatous disease. Gallbladder, pancreas a nd bilateral adrenal glands are normal. There are regions of cortical scarring at both kidneys along with a 1.6 cm hypodense left renal cyst. Postoperative change of prior partial colectomy with Leach 's pouch and left lower quadrant and colostomy. There is residual oral contrast material in the Hartm an's pouch. There are 2 left lower quadrant abscess drains which were placed one week prior. The absc ess cavity surrounding more cephalad and lateral drainage catheter is now decompressed with no residu al fluid surrounding the loop of the drainage catheter. There is significant decrease in size of the more caudal abscess cavity in the anterior pelvis with minimal gas and small amount of residual fluid in the abscess cavity. There is a small amount of likely retroperitoneal fluid in the inferior right paracolic gutter tracking into the more caudal right hemipelvis. There is persistent fat stranding i n the mesenteric and retroperitoneal fat. Minimal amount of nonloculated ascites in the lower abdomen and pelvis. No free intraperitoneal gas or new abscesses. No significant change in residual small mu ltiloculated hematoma at the right inguinal canal. Bladder is decompressed around a Weathers catheter. IMPRESSION: 1. Interval decompression of the prior abscess cavity surrounding the more cephalad and lateral left lower quadrant abscess drainage catheter. 2. Minimal amount of residual gas and fluid within the anterior pelvic abscess cavity surrounding the more cephalad and medial left lower quadrant abscess drainage catheter. 3. Stable right inguinal hematoma. 4. Decreasing small bilateral pleural effusions with associated dependent compressive atelectasis. 5. Minimal ascites in the lower abdomen and pelvis with nonspecific edema or in the mesenteric and re troperitoneal fat. No new drainable abscess identified. Reviewed, dictated and finalized at location A. OIDERY PATTERNMAKER IMPRESSION: 1. Interval decompression of the prior abscess cavity surrounding the more ceph alad and lateral left lower quadrant abscess drainage catheter. 2. Minimal amount of residual gas and fluid within the anterior pelvic abscess cavity surrounding the more cephalad and medial left lower quadrant abscess kenzie inage catheter. 3. Stable right inguinal hematoma. 4. Decreasing small bilateral pleural effusions with associated dependent compr essive atelectasis. 5. Minimal ascites in the lower abdomen and pelvis with nonspecific edema or in the mesenteric and retroperitoneal fat. No new drainable abscess identified.
--- NOTE | ~2023-08-03 | XR_ITS ---
EXAMINATION: XR chest 1V portable DATE: 08/25/2023 07:31 INDICATION: Respiratory failure TECHNIQUE: frontal view of the chest was obtained. COMPARISON: Chest radiograph dated 08/23/2023 FINDINGS: Endotracheal tube tip 3.0 cm above the moreno. Nasogastric tube extends below the left hemidiaphragm with distal tip collimated off the study. Right upper extremity peripherally inserted central venous catheter (PICC) tip at the mid superior vena cava. No focal airspace opacities, pulmonary edema, pleural effusion or pneumothorax. The cardiomediastinal silhouette is normal. Median sternotomy wires, ostial markers and mediastinal surgical clips consist ent with prior coronary artery bypass grafting. IMPRESSION: 1. Lines and tubes in expected positions. No evident acute cardiopulmonary disease. Reviewed, dictated and finalized at location A. CARPENTER IMPRESSION: 1. Lines and tubes in expected positions. No evident acute cardiopulmonary dise ase.
--- NOTE | ~2023-08-03 | CT_ITS ---
EXAMINATION: CT abdomen pelvis wo con DATE: 09/11/2023 10:10 INDICATION: Fever TECHNIQUE: Computed tomography (CT) of the abdomen and pelvis was performed without intravenous contr ast. The dose-length product (DLP) was 1959.81 mGy-cm. Automated exposure control and iterative recon struction technique were employed. COMPARISON: 09/02/2023 FINDINGS: There are small pleural effusions. Changes of coronary artery bypass grafting are noted. Th e heart size is normal. There are minimal dependent airspace opacities of the lung bases. The nasogas tric tube is in the stomach. Punctate calcifications in otherwise normal appearing liver and spleen l ikely represent healed granulomatous disease. There is unchanged mild wall thickening of the gallblad suhail fundus which could relate to recent cholecystostomy. The pancreas and adrenal glands are normal. Areas of cortical thinning are again noted in the kidneys. There is a 1.5 cm cyst of the left kidney. No pathologically enlarged abdominal or pelvic lymph nodes are identified. The bladder is decompress ed by Weathers catheter. The last remaining percutaneous drain has been removed. There is an approximately 14.1 x 7.9 x 15 cm abscess of the left lower quadrant extending into the pelvis. There appears to be communication with a 12.1 x 4.5 cm midline abscess in the anterior pelvis. An approximately 6.0 x 2.1 cm abscess of the mid abdomen, possibly involving the small bowel mesentery, slightly increased in size (image 120). A hematoma of the right inguinal canal is slightly decreased. There is a questionable 2.8 x 2.3 cm righ t scrotal abscess. IMPRESSION: 1. Left lower quadrant abscess measuring 14.1 x 7.9 cm in axial dimension. 12.1 x 4.5 cm midline absc ess of the anterior pelvis which may communicate with the left lower quadrant abscess. 2. Questionable right scrotal abscess. Consider scrotal ultrasound. 3. Small pleural effusions. 4. Airspace opacities of the lung bases, consistent with atelectasis versus pneumonia. Reviewed, dictated and finalized at location B. S NURSE IMPRESSION: 1. Left lower quadrant abscess measuring 14.1 x 7.9 cm in axial dimension. 12.1 x 4.5 cm midline abscess of the anterior pelvis which may communicate with the left lower quadrant abscess. 2. Questionable right scrotal abscess. Consider scrotal ultrasound. 3. Small pleural effusions. 4. Airspace opacities of the lung bases, consistent with atelectasis versus pne umonia.
--- NOTE | ~2023-08-03 | XR_ITS ---
XR chest 1V portable 08/23/2023 08:40 Indication: Respiratory failure Procedure: AP portable chest Comparison: Comparison to multiple prior studies sequentially, with oldest reviewed study dated 07/25. Findings: There is an endotracheal tube, tip 4.1 cm above the moreno. NG tube passes into the stomach , tip not evaluated. Heart size normal. Status post median sternotomy for CABG. No focal air space di sease, pulmonary edema, pleural effusion or suspected pneumothorax. PICC line tip in the SVC. Impression: 1: No acute cardiopulmonary disease. Reviewed, dictated and finalized at location B. E COUPLER DINKEY Impression: 1: No acute cardiopulmonary disease.
--- NOTE | ~2023-08-03 | CT_ITS ---
EXAMINATION: US guide abscess drainage, CT guide absc cath placement, CT guide absc cath placement, C T guide absc cath placement, CT guide absc cath placement DATE: 08/14/2023 14:57 INDICATION: Multiple intra-abdominal abscesses TECHNIQUE: The procedure including the risks and benefits was discussed with the patient. Risks discu ssed included bleeding and infection. The patient understood the risks and benefits and agreed to pro ceed. The patient was confirmed to be receiving appropriate antibiotic coverage. The plan was to aspi rate 2 of the smaller more superficial abscess cavities utilizing ultrasound guidance and a 5 Eritrean catheter and to place a larger abscess drainage catheter utilizing CT into the larger and deeper absc ess cavities. The skin overlying the relatively smaller superficial abscess cavities at the right lower quadrant wa s prepped and draped in usual sterile fashion. Anesthetic was administered with 1% lidocaine subcuta neously. A 5 Eritrean catheter with trochar was advanced utilizing continuous ultrasound guidance into the fluid collection. A small amount of initially opaque madsen-colored fluid was aspirated however it a ppeared unlikely that the entire cavity could be drained utilizing a relatively small gauge catheter. The catheter was removed and an 8.5 Eritrean catheter with trochar was inserted and utilizing ultrasou nd guidance into the fluid collection. An additional small amount of fluid now appearing more bloody was aspirated. The catheter was sutured to the skin and antibiotic ligament and a sterile dressing we re applied. It was then elected to proceed with drainage of the distal abscess cavities utilizing CT guidance. Fo r each of the 4 additional abscess cavities, 2 located in the mid abdomen and 2 in the left lower twan drant the overlying skin was sterilely prepped and draped. Additional anesthetic was administered wit h 1% lidocaine subcutaneously. 18-gauge trochar needles were advanced utilizing CT guidance into the into the abscess cavities. Inner stylets were removed and the J-wire is advanced into the abscess cav ities with position confirmed by CT. Utilizing Seldinger technique the needle was removed over the wi re and the tract serially dilated to 8 Fr for the smaller more superficial abscess cavity in the mid abdomen and 10 Fr for the 3 remaining abscesses. A second 8.5 Fr catheter was placed over the wire in to the second smaller superficial abscess in the mid abdomen and a loop formed and locked with positi on confirmed by CT . This abscess yielded cloudy reddish-orange liquid. 10 Fr drainage catheters were placed into each of the 3 remaining abscesses, one in the mid abdomen and 2 in the left lower quadra nt. Each of the loops were formed and locked with position confirmed by CT . Each of these abscesses yielded opaque madsen-colored purulent appearing fluid. The wires removed and each the catheters stitche d to the skin with antibiotic ointment and sterile dressings applied. The 3 larger drainage catheters were each attached to suction drainage. The two 8.5 Fr drainage catheters were manually aspirated un til no further fluid returned and were then attached to gravity drainage. During the procedure and ad ditional CT of the abdomen and pelvis was obtained following administration of with 100 mL Omnipaque- 350 intravenous contrast to better delineate the margins of the apices and adjacent bowels. There wer e no immediate complications. The dose-length product for the combined procedures was 2512.15 mGy-cm. FINDINGS: Ultrasound images demonstrate a 4.2 x 1.8 cm fluid collection along the right lower quadrant anterior abdominal wall. Subsequent image demonstrates a loop of the drainage catheter formed within the now partially decompressed abscess cavity. The catheter has been labeled #1. Multiple additional abscesse s in the abdomen and pelvis. There is a previously placed percutaneous abscess drain with d
--- NOTE | ~2023-08-03 | XR_ITS ---
Portable chest x-ray Comparison: 09/21/2023 Clinical History: Respiratory failure Findings: Tracheostomy cannula and right-sided PICC line are in place. Lungs are clear, without foca l consolidation or pleural effusion. Cardiomediastinal silhouette is stable. Bones and soft tissues are unremarkable. Impression: Clear lungs. Stable support lines. Reviewed, dictated and finalized at location . AINABILITY ANALYST Impression: Clear lungs. Stable support lines.
--- NOTE | ~2023-08-03 | XR_ITS ---
Portable chest x-ray Comparison: 09/01/2023 Clinical History: Pulmonary edema Findings: Tracheostomy cannula and right-sided PICC line are in satisfactory positions. Lungs are cl ear, without focal consolidation or pleural effusion. Cardiomediastinal silhouette is stable. Bones and soft tissues are unremarkable. Impression: Clear lungs. Support tubes, as above. Reviewed, dictated and finalized at location M. RVISOR LAUNDRY Impression: Clear lungs. Support tubes, as above.
--- NOTE | ~2023-08-03 | CT_ITS ---
EXAMINATION: CT abdomen pelvis w con DATE: 08/26/2023 13:56 INDICATION: Enterocutaneous fistula with fever and leukocytosis TECHNIQUE: Computed tomography (CT) of the abdomen and pelvis was performed with 100 mL Omnipaque-350 intravenous contrast as well as water soluble oral contrast. Automated exposure control and iterativ e reconstruction technique were employed. The dose-length product was 1478.16 mGy-cm. COMPARISON: 08/22/2023 FINDINGS: Mild left basilar atelectasis in the posterior aspect of the elevated left hemidiaphragm. There is ad ditional mild dependent atelectasis in both lower lobes. Couple calcified left lower lobe nodules martin ng with a few hepatic and splenic calcifications consistent with old granulomatous disease. Heart siz e is normal. Coronary artery calcific lesions and change of prior median sternotomy and coronary nicole ry bypass grafting. Nasogastric tube tip at the gastric pylorus. The gallbladder remains decompressed by a transhepatic percutaneous cholecystostomy tube. Pancreas and bilateral adrenal glands are cosme l. There are bilateral renal cysts the largest on the left measuring 1.8 cm as well as small region o f cortical scarring at both kidneys which are likely sequela of prior infection or infarction. Gas an d a Weathers catheter is seen within the partially decompressed bladder. No significant interval change in a hematoma at the right groin, portion of which is seen in the right inguinal canal and the portio n of which extends into the more superficial subcutaneous fat. No pathologically enlarged abdominal o r pelvic lymphadenopathy. Mild thoracic and lumbar spondylosis. Oral contrast material extends from the stomach throughout the small bowel into the colon to the leve l of the hepatic flexure. There is a small amount of extraluminal contrast extravasation from the sma ll bowel in the deep pelvis located immediately adjacent to the pelvic abscess drain. The collection of extraluminal contrast measures 2.6 x 1.9 x 1.6 cm. There is no further more distal extension of ex traluminal contrast. There is a residual midline supraumbilical 3.2 x 1.5 x 2.3 cm rim-enhancing absc ess cavity with overlying linear tract from a prior percutaneous drainage catheter. There are 2 addit ional percutaneous drainage catheters in the left abdomen which are without residual associated absce sses. No new abscesses identified. No dilated bowel to suggest obstruction. There is moderate diverti culosis along the descending and sigmoid colon. No significant interval change in some diffuse strand ing throughout the mesentery. No free intraperitoneal gas. IMPRESSION: 1. 2.6 x 1.9 x 1.6 cm collection of extravasated contrast surrounding the coiled loop of the pelvic a bscess drain which arises from on the immediately adjacent segments of small bowel. 2. 2 additional left abdominal percutaneous drainage catheters with no residual surrounding abscesses . 3. Residual midline supra umbilical 3.2 x 1.5 x 2.3 cm rim-enhancing abscess at the site of a previou sly removed drainage catheter. 4. Percutaneous cholecystostomy tube within the decompressed gallbladder. 5. Nasogastric tube tip at the gastric pylorus. Consider withdrawal by [address] at the gastric a ntrum. 6. Stable right inguinal hematoma. 7. Diverticulosis. Reviewed, dictated and finalized at location A. ESIS SPECIALIST IMPRESSION: 1. 2.6 x 1.9 x 1.6 cm collection of extravasated contrast surrounding the coile d loop of the pelvic abscess drain which arises from on the immediately adjacen t segments of small bowel. 2. 2 additional left abdominal percutaneous drainage catheters with no residual surrounding abscesses. 3. Residual midline supra umbilical 3.2 x 1.5 x 2.3 cm rim-enhancing abscess at the site of a previously removed drainage catheter. 4. Perc
--- NOTE | ~2023-08-03 | XR_ITS ---
XR chest 1V portable DATE: 09/14/2023 05:45 INDICATION: Respiratory failure TECHNIQUE: Portable AP chest on 09/14/2000 2300 and 0516 hours COMPARISON: 09/10/2023 portable AP chest at 0730 hours FINDINGS: Tracheostomy tube in satisfactory position. NG tube in stomach. Right upper extremity PIC c atheter tip is in the superior vena cava. Status post sternotomy and coronary artery bypass graft surgery. Heart size appears within normal chase its. There is aortic arch calcification, aortic unfolding. There is persistent left lower lobe infiltrate and/or atelectasis, stable since 09/10/2023. Pulmonary vascular redistribution may indicate mild pulmonary venous hypertension. IMPRESSION: Persistent left lower lobe infiltrate and/atelectasis Chronic vascular redistribution may indicate mild pulmonary venous hypertension Reviewed, dictated and finalized at location A. NK ARCHITECT
--- NOTE | ~2023-08-03 | XR_ITS ---
XR abdomen/kub 1V 09/08/2023 06:25 Indication: Ileus. NG tube placement. Procedure: KUB Comparison: Comparison to multiple prior studies sequentially, with oldest reviewed study dated 07/24. Findings: There is a right para midline laparotomy staple line. NG tube in the distal aspect of the s tomach. No significant small bowel dilation is seen. Lung bases are grossly unremarkable. There is ga s in the colon. Impression: 1: Nonobstructive bowel pattern. Reviewed, dictated and finalized at location A. INFORMATION OFFICER Impression: 1: Nonobstructive bowel pattern.
--- NOTE | ~2023-08-03 | US_ITS ---
EXAMINATION: US venous doppler [facility] DATE: 08/17/2023 16:00 INDICATION: Fever . TECHNIQUE: Grayscale images without and with compression and Doppler images of the bilateral lower ex tremity veins were obtained. COMPARISON: None FINDINGS: The right common femoral vein, profunda (deep) femoral vein, femoral vein, popliteal vein, peroneal v ein, posterior tibial veins, and greater saphenous vein are patent. The left common femoral vein, profunda (deep) femoral vein, femoral vein, popliteal vein, peroneal v ein, posterior tibial veins, and greater saphenous vein are patent. IMPRESSION: Patent bilateral lower extremity veins. No evidence of deep venous thrombosis. Reviewed, dictated and finalized at location K. PAINTER
--- NOTE | ~2023-08-03 | XR_ITS ---
XR abdomen/kub 1V INDICATION: Evaluate NG tube position. TECHNIQUE: Limited KUB perform for evaluating NG tube . COMPARISON: 09/06/2015 FINDINGS: NG tube tip in the distal aspect of the stomach. There is a laparotomy staple line. Visuali zed bowel gas pattern is unremarkable. IMPRESSION: 1: NG tube tip in the distal aspect of the stomach. Reviewed, dictated and finalized at location A. PER BEATER
--- NOTE | ~2023-08-03 | XR_ITS ---
Portable chest x-ray Comparison: 09/07/2023 Clinical History: Infiltrates Findings: Tracheostomy cannula, NG tube, and right-sided PICC line are in place. There is probable l inear left basilar scarring or atelectasis. Right lung clear. Cardiomediastinal silhouette is stable . Bones and soft tissues are unremarkable. Impression: Support tubes, as above. Probable linear left basilar scarring or atelectasis, otherwise clear lungs. Reviewed, dictated and finalized at location M. AND NECK SURGEON Impression: Support tubes, as above. Probable linear left basilar scarring or atelectasis, otherwise clear lungs.
--- NOTE | ~2023-08-03 | XR_ITS ---
EXAMINATION: XR chest 1V portable INDICATION: Respiratory failure TECHNIQUE: Portable AP chest at 0727 hours COMPARISON: 08/11/2023 FINDINGS: There are patchy airspace opacities throughout all lung zones. No pleural effusion or pneum othorax. The patient is rotated. The cardiomediastinal silhouette is stable. A right upper extremity PICC ends with its tip in the proximal superior vena cava. Median sternotomy wires are consistent wit h prior cardiac surgery. IMPRESSION: 1. Diffuse lung disease with slight interval worsening, consistent with pulmonary edema versus pneumo david versus atelectasis. Reviewed, dictated and finalized at location F. DETECTOR OPERATOR IMPRESSION: 1. Diffuse lung disease with slight interval worsening, consistent with pulmona ry edema versus pneumonia versus atelectasis.
--- NOTE | ~2023-08-03 | XR_ITS ---
Portable chest x-ray Comparison: 08/26/2023 Clinical History: Respiratory failure Findings: Endotracheal tube, NG tube, and right-sided PICC line are in satisfactory positions. Lungs are essentially clear. Cardiomediastinal silhouette is stable, status post CABG. Bones and soft tis sues are unremarkable. Impression: Support tubes, as above. Clear lungs. Reviewed, dictated and finalized at location M. LIGHT INSPECTOR Impression: Support tubes, as above. Clear lungs.
--- NOTE | ~2023-08-03 | US_ITS ---
EXAMINATION: US renal BI DATE: 08/05/2023 21:34 INDICATION: Acute renal insufficiency TECHNIQUE: Multiple ultrasound grayscale images of the kidneys were obtained. COMPARISON: CT dated 08/04/2023 FINDINGS: The right kidney measures 11.0 x 5.3 x 5.6 cm. The left kidney measures 11.1 x 6.2 x 5.5 cm. The kidn eys demonstrate normal echogenicity. On the earlier CT there are few regions of chronic scarring at t he periphery of both kidneys one of which accounts for the focal invagination a small amount of hyper echoic fat at the mid left kidney. There is no hydronephrosis in either kidney. No stones identified . The bladder is normal. IMPRESSION: 1. Small focus of cortical scarring at the mid left kidney. No hydronephrosis in either kidney. Reviewed, dictated and finalized at location A. N MERCHANDISING MANAGER
--- NOTE | ~2023-08-03 | XR_ITS ---
XR chest 1V portable 09/07/2023 10:34 Indication: Respiratory failure Procedure: AP portable chest Comparison: Comparison to multiple prior studies sequentially, with oldest reviewed study dated 03/2023. Findings: NG tube in the stomach. Tracheostomy tube present. Status post median sternotomy for CABG. PICC line tip in the SVC. Mild bilateral perihilar interstitial infiltrates with peribronchial thicke alba. Shallow inspiration. Impression: 1: Mild bilateral perihilar interstitial infiltrates which may represent edema or atypical pneumonia. Reviewed, dictated and finalized at location A. SAFETY OFFICER Impression: 1: Mild bilateral perihilar interstitial infiltrates which may represent edema or atypical pneumonia.
--- NOTE | ~2023-08-03 | CT_ITS ---
EXAMINATION: CT guide absc cath placement DATE: 08/06/2023 15:31 INDICATION: Abdominal abscess. Sepsis. TECHNIQUE: Consent was provided by the patient's family member. The skin overlying the abdomen was pr epped and draped in usual sterile fashion. Anesthetic was administered with 1% lidocaine subcutaneou sly. An 18 gauge trochar needle was inserted into the left abdominal abscess with CT guidance. The ne edle was exchanged over a wire for 6 [place], 8 [place], and 10 [place] dilators and then for a 10 Frenc h pigtail catheter. The catheter was stitched to the skin, and a sterile dressing was applied. The mA was adjusted according to patient size. Iterative reconstruction technique was employed. The dose-le ngth product was 423.52 mGy-cm. There were no immediate complications. FINDINGS: CT images demonstrate the catheter within the the left abdominal and pelvic abscesses. 50 m L fluid was aspirated for testing. IMPRESSION: 1. Successful CT-guided peritoneal abscess drainage. 2. 50 mL opaque, foul-smelling, madsen fluid was sent for aerobic and anaerobic cultures. Reviewed, dictated and finalized at location A. GEMENT DEVELOPER IMPRESSION: 1. Successful CT-guided peritoneal abscess drainage. 2. 50 mL opaque, foul-smelling, madsen fluid was sent for aerobic and anaerobic cu ltures.
--- NOTE | ~2023-08-03 | XR_ITS ---
XR chest PICC line DATE: 08/08/2023 10:51 INDICATION: PICC line placement TECHNIQUE: Portable AP chest on 08/08/2023 at 1044 hours COMPARISON: 08/08/2022 portable AP chest at 0056 hours FINDINGS: The right upper extremity PIC catheter tip is now situated near the superior cavoatrial dianne ction, having been ingested from the internal jugular vein location noted on the chest radiograph at 0956 hours today. No other significant change. IMPRESSION: Right upper extremity PIC catheter tip near superior cavoatrial junction Reviewed, dictated and finalized at Location A. Reviewed, dictated and finalized at location L. ERSITY ARCHIVIST IMPRESSION: Right upper extremity PIC catheter tip near superior cavoatrial dianne ction
--- NOTE | ~2023-08-03 | XR_ITS ---
EXAMINATION: XR chest PICC line DATE: 08/08/2023 10:10 INDICATION: Central line placement. TECHNIQUE: A single frontal view of the chest was obtained on 2 radiographs. COMPARISON: Chest single view 08/06/2023 FINDINGS: There is chronic mild elevation of left hemidiaphragm. There is mild atelectasis at the nia g bases. There is a small right pleural effusion. No pneumothorax. Cardiomegaly is noted. There is ga seous distention of the stomach. There are surgical clips in the abdomen. A right upper extremity per ipherally inserted central venous catheter (PICC) is seen with tip in the right internal jugular vein . The second image demonstrates the PICC tip in the right subclavian vein. Median sternotomy wires ar e noted. IMPRESSION: 1. PICC tip in the right internal jugular vein on the first image and in the right subclavian vein on the second image. 2. Small right pleural effusion. 3. Mild atelectasis at the lung bases. 4. Cardiomegaly. Reviewed, dictated and finalized at location A. NCE BRIDGE ASSEMBLER IMPRESSION: 1. PICC tip in the right internal jugular vein on the first image and in the ri ght subclavian vein on the second image. 2. Small right pleural effusion. 3. Mild atelectasis at the lung bases. 4. Cardiomegaly.
--- NOTE | ~2023-08-03 | CT_ITS ---
EXAMINATION: CT abdomen pelvis w con DATE: 08/04/2023 14:57 INDICATION: Abdominal distention TECHNIQUE: Computed tomography (CT) of the abdomen and pelvis was performed with 100 mL Omnipaque-350 intravenous contrast. Automated exposure control and iterative reconstruction technique were employe d. The dose-length product was 1429.10 mGy-cm. COMPARISON: 11/21/2018. FINDINGS: Lower thorax: Marked cardiomegaly. Coronary artery calcification. Bibasilar scar/atelectasis. Small b ilateral effusions. Liver: Scattered hypodensities due to small to characterize but most likely represent cysts or mening iomas. Embolization coils in the right lobe. Biliary/Gallbladder: Gallbladder is distended. No bile duct dilation. Pancreas: No mass or duct dilation. Spleen: Normal. Adrenals:No mass. Kidneys: No suspicious mass, obstructing stone, or hydronephrosis. GI tract: No small or large bowel dilation. Appendix not visualized. Diverticulosis without diverticu litis. Mesentery/Peritoneum: Multiple areas of subsegmental loculated appearing mesenteric fluid, the larges t in the deep pelvis measuring up to 8.4 cm. Multiple areas of moderate volume pneumoperitoneum. Ther e is gas in a right inguinal hernia and extending along the right lateral abdominal wall. Retroperitoneum: No mass. Atherosclerotic abdominal aortic and/or arterial calcifications. Pelvis: Pelvic organs are within normal limits. Soft Tissues: Soft tissues and body wall unremarkable. Bones: No acute osseous finding. IMPRESSION: Atelectasis/consolidation in the bilateral dependent lungs. Small bilateral pleural effusions. Gallbladder hydrops. Moderate volume pneumoperitoneum with scattered areas of loculated appearing mesenteric fluid. Absces ses are not excluded. Etiology not demonstrated in this study. Correlate with history of recent surge ry. Subcutaneous gas, fluid, and inflammatory change in the right inguinal canal and extending up the rig ht lateral abdominal wall, correlate for clinical findings of infection/cellulitis. Reviewed, dictated and finalized at location K. E OUT WORKER IMPRESSION: Atelectasis/consolidation in the bilateral dependent lungs. Small bilateral ple ural effusions. Gallbladder hydrops. Moderate volume pneumoperitoneum with scattered areas of loculated appearing me senteric fluid. Abscesses are not excluded. Etiology not demonstrated in this s tudy. Correlate with history of recent surgery. Subcutaneous gas, fluid, and inflammatory change in the right inguinal canal an d extending up the right lateral abdominal wall, correlate for clinical finding s of infection/cellulitis.
--- NOTE | ~2023-08-03 | CT_ITS ---
Non-contrast Head CT History: Altered mental status COMPARISON: 08/25/2019 Technique: Axial non-contrast imaging of the brain was performed. Dose reduction technique was used on this scan by utilizing automated exposure control and iterative reconstruction technique. The dose -length product (DLP) was 1362.00 mGy-cm. Findings: There is no evidence of intracranial hemorrhage, mass lesion, or acute infarct. Brain par enchyma appears normal. The ventricles and subarachnoid spaces are normal in size. The calvarium ap pears normal. The visualized paranasal sinuses and mastoid air cells are clear. Impression: No significant abnormality seen. Reviewed, dictated and finalized at location . HEEL FLAP INSERTER Impression: No significant abnormality seen.
--- NOTE | ~2023-08-03 | XR_ITS ---
EXAMINATION: XR chest 1V portable DATE: 09/17/2023 05:50 INDICATION: Mechanical ventilation. TECHNIQUE: A single frontal view of the chest was obtained. COMPARISON: Chest single view 09/14/2023, CT abdomen and pelvis 09/11/2023 FINDINGS: The patient is rotated to his right. There is mild atelectasis at left lung base. No pleura l effusion or pneumothorax. The heart size is normal. Median sternotomy wires and mediastinal surgica l clips are seen, likely from prior coronary artery bypass grafting. A tracheostomy tube is noted. Th e nasogastric tube tip is beyond the inferior margin of the radiograph, but at least to the stomach. A right upper extremity peripherally inserted central venous catheter (PICC) is seen with tip in the superior vena cava. IMPRESSION: 1. Mild atelectasis at left lung base. Reviewed, dictated and finalized at location E. MANAGER
--- NOTE | ~2023-08-03 | XR_ITS ---
EXAMINATION: XR chest 1V portable DATE: 08/11/2023 09:27 INDICATION: Shortness of breath. TECHNIQUE: A single frontal view of the chest was obtained. COMPARISON: Chest single view 08/09/2023 FINDINGS: The patient is rotated to his right. There is a diffuse interstitial pattern in the lungs, consistent mild pulmonary edema. There is mild atelectasis at the lung bases with improvement on the left. There are small pleural effusions. No pneumothorax. Cardiomegaly is noted. Median sternotomy wi res and mediastinal surgical clips are seen, likely from prior coronary artery bypass grafting. A rig ht upper extremity peripherally inserted central venous catheter (PICC) is seen with tip at the super ior cavoatrial junction. IMPRESSION: 1. Mild pulmonary edema. 2. Small pleural effusions. 3. Cardiomegaly. Reviewed, dictated and finalized at location A. SHIELD WIPER REPAIRER
--- NOTE | ~2023-08-03 | XR_ITS ---
Supine and upright views of the abdomen Clinical history: Ileus, NG tube Findings: NG tube in satisfactory position. Evidence of recent surgery. Bowel gas pattern is nonspeci fic. No evidence for obstruction or free air. No abnormal mass lesion or calcification is seen. [place] us structures are intact. Impression: NG tube in place. Nonspecific bowel gas pattern. Reviewed, dictated and finalized at location . MERCHANT Impression: NG tube in place. Nonspecific bowel gas pattern.
--- NOTE | ~2023-08-03 | XR_ITS ---
EXAMINATION: XR chest 1V portable INDICATION: Fever TECHNIQUE: Portable AP chest at 0920 hours COMPARISON: 08/30/2023 FINDINGS: A tracheostomy has been inserted. A right upper extremity PICC ends with its tip in the mid superior vena cava. The lungs are free of acute opacities. No pleural effusion or pneumothorax. Page es of prior cardiac surgery are noted. The cardiomediastinal silhouette is stable. The nasogastric tu be has been removed. IMPRESSION: 1. No acute cardiopulmonary abnormality. 2. Tracheostomy insertion. Reviewed, dictated and finalized at location F. ER CUTTER
--- NOTE | ~2023-08-03 | XR_ITS ---
EXAMINATION: XR abdomen gastric tube rechec INDICATION: Nasogastric tube adjustment TECHNIQUE: Portable AP KUB-NG at 0955 hours COMPARISON: None available FINDINGS: A nasogastric tube is in the stomach. There are no dilated loops of bowel. The visualized l savita bases are clear. IMPRESSION: 1. Nasogastric tube in the stomach. Reviewed, dictated and finalized at location L. SPRINKLER SERVICER
--- NOTE | ~2023-08-03 | XR_ITS ---
Portable chest x-ray Comparison: 08/27/2023 Clinical History: Respiratory failure Findings: Endotracheal tube, NG tube, and right-sided PICC line remain in place. Lungs remain essent ially clear. Cardiomediastinal silhouette is stable. Bones and soft tissues are unremarkable. Impression: Clear lungs. Stable support tubes. Reviewed, dictated and finalized at location . SCAPE ARCHITECTURE PROFESSOR Impression: Clear lungs. Stable support tubes.
--- NOTE | ~2023-08-03 | CT_ITS ---
EXAMINATION: CT guide absc cath placement, CT guide absc cath placement DATE: 09/11/2023 16:24 INDICATION: Abdominal abscesses TECHNIQUE: The procedure including the risks and benefits was discussed with the patient's family who provided consent proceed. Risks discussed included bleeding and infection. The patient was confirmed to be receiving appropriate antibiotic coverage. The skin overlying the left lower quadrant was pre pped and draped in usual sterile fashion. Anesthetic was administered with 1% lidocaine subcutaneous ly. 18-gauge trocar needles were advanced with CT guidance into each of the 2 loculated fluid collect ions, the more cephalad positioned laterally at the left lower quadrant and the second positioned in the mid line of the more caudal anterior pelvis. The inner stylets were removed with spontaneous refl ux of purulent appearing fluid. J wires were advanced through both catheters into each of the fluid c ollections. After confirmation of positioning by CT the needles were removed over the wires and utili zing Seldinger technique the catheter tracts dilated to 10 Fr. 10 Fr catheters were inserted into eac h of the fluid collections over the wires and the pigtail loops formed and locked with position confi rmed by CT. The wires were then removed and the catheters were each stitched to the skin. Antibiotic ointment and sterile dressings were applied. Fluid was aspirated from both of the fluid collections a nd sent to the lab for Gram stain and cultures. The catheters were then each attached to separate suc tion drainage and drainage draining additional fluid at the conclusion of the procedure. There were n o immediate complications. The dose-length product was 359.23 mGy-cm. FINDINGS: CT images demonstrate the first drainage catheter within the caudal aspect of the left lowe r quadrant abscess cavity and the second drainage catheter within the more caudal anterior pelvic abs cess cavity. 40 mL fluid was aspirated from each abscess cavity for testing. IMPRESSION: 1. Successful CT-guided left lower quadrant abscess drainage catheter placement 2. Successful CT-guided anterior pelvic abscess drainage catheter placement. 3. 40 mL fluid from each abscess cavity was sent for aerobic and anaerobic cultures. 3. The catheter will be managed by Dr. Armijo. Reviewed, dictated and finalized at location A. ITE CUTTER IMPRESSION: 1. Successful CT-guided left lower quadrant abscess drainage catheter placement 2. Successful CT-guided anterior pelvic abscess drainage catheter placement. 3. 40 mL fluid from each abscess cavity was sent for aerobic and anaerobic cult ures. 3. The catheter will be managed by Dr. Armijo.
--- NOTE | ~2023-08-03 | CT_ITS ---
Clinical Indication: High residuals CT Scan of the Chest, Abdomen, and Pelvis without Contrast: Technique: Contiguous sections were acquired throughout the chest, abdomen, and pelvis without IV con trast initiation. Dose reduction technique was used on this scan by utilizing automated exposure cont rol and iterative reconstruction technique. The dose-length product (DLP) was 1712.46 mGy-cm. COMPARISON: 09/18/2023 Findings: Tracheostomy cannula present. There is no evidence of any significant mediastinal, hilar or axillary lymphadenopathy. The mediastin al soft tissues appear normal. There are minimal pleural effusions with patchy bibasilar airspace disease, left worse than right. No pericardial effusion. Stable coarse hepatic calcification. The spleen, pancreas, gallbladder, adrenals and kidneys are with in normal limits. There are atherosclerotic calcifications of the aorta. No lymphadenopathy. Evidence of prior colonic resection with left lower quadrant ostomy present. There is a percutaneous drainage catheter in the low anterior mid abdomen, without significant fluid collection at this time. No bowel obstruction evident. No abscess evident. Urinary bladder is collapsed around a Weathers catheter. No pelvic mass evident. No ascites. Impression: Minimal pleural effusions patchy bibasilar airspace disease. Correlate for atelectasis versus pneumon ia. Lower abdominal percutaneous drainage catheter, without significant residual abscess. No fluid presen t about the drainage catheter. Postoperative changes related to prior colonic resection, as above. Reviewed, dictated and finalized at [facility]. TER CHARGER Impression: Minimal pleural effusions patchy bibasilar airspace disease. Correlate for atel ectasis versus pneumonia. Lower abdominal percutaneous drainage catheter, without significant residual ab scess. No fluid present about the drainage catheter. Postoperative changes related to prior colonic resection, as above.
--- NOTE | ~2023-08-03 | XR_ITS ---
Supine and upright views of the abdomen Clinical history: Peritonitis COMPARISON: 08/05/2023 Findings: Bowel gas pattern is nonspecific. No evidence for obstruction or free air. No abnormal mass lesion or calcification is seen. Suprapubic or other pelvic catheter present. Right mid abdominal ca theter could reflect previous nephrostomy versus other drainage catheter. Osseous structures are inta ct. Impression: Nonspecific bowel gas pattern. 2 percutaneous catheters, one in the right mid abdomen, and one in the pelvis, as noted above. Reviewed, dictated and finalized at location M. FINISHER Impression: Nonspecific bowel gas pattern. 2 percutaneous catheters, one in the right mid abdomen, and one in the pelvis, as noted above.
--- NOTE | ~2023-08-03 | US_ITS ---
EXAMINATION: US scrotum doppler DATE: 09/11/2023 22:50 INDICATION: Scrotal swelling. TECHNIQUE: Grayscale and Doppler ultrasound images of the testes were obtained. COMPARISON: CT abdomen and pelvis 09/11/2023 FINDINGS: The right testis measures 4.3 x 2.5 x 3.3 cm. The left testis measures 4.1 x 2.6 x 2.9 cm. There is normal vascular flow to both testes. The right epididymis is normal with normal vascular tabitha w. The left epididymis demonstrates a 10 x 8 x 4 mm hypoechoic and anechoic mass. There is a small le ft hydrocele with septations. There is extensive scrotal skin thickening. IMPRESSION: 1. Extensive scrotal skin thickening. 2. 10 mm mass in left epididymis, likely benign. 3. Small left hydrocele with septations. Reviewed, dictated and finalized at location E. S ENABLEMENT CONSULTANT
--- NOTE | ~2023-08-03 | XR_ITS ---
EXAMINATION: XR abdomen/kub 1V DATE: 08/11/2023 09:26 INDICATION: Abdominal abscess. TECHNIQUE: A supine view of the abdomen on 2 radiographs was obtained. COMPARISON: Abdomen radiograph 08/09/2023 FINDINGS: There are no dilated loops of bowel. There is a percutaneous drain in expected position. Kennedy rgical clips overlie the pelvis. A right upper extremity peripherally inserted central venous cathete r (PICC) is seen with tip at the superior cavoatrial junction. Median sternotomy wires are noted. IMPRESSION: 1. Nonobstructive bowel gas pattern. Reviewed, dictated and finalized at location A. AKER
--- NOTE | ~2023-08-03 | XR_ITS ---
Portable chest x-ray Comparison: 08/21/2023 Clinical History: Tube placed Findings: Endotracheal tube, NG tube, and right-sided PICC line remain in place. There is stable lef t basilar scarring or atelectasis. Right lung clear. Cardiomediastinal silhouette is stable. Bones a nd soft tissues are unremarkable. Impression: Stable support tubes. Stable left basilar scarring or atelectasis. Reviewed, dictated and finalized at location . REDUCTION COUNSELOR Impression: Stable support tubes. Stable left basilar scarring or atelectasis.
--- NOTE | ~2023-08-03 | XR_ITS ---
EXAMINATION: XR abdomen gastric tube insert INDICATION: OG tube insertion TECHNIQUE: Portable AP KUB-NG at 0820 hours COMPARISON: None available FINDINGS: The OG tube is in the stomach. The stomach is mildly dilated. There are small pleural effus ions. There are partially imaged left-sided percutaneous drains in the abdomen. IMPRESSION: 1. OG tube in the stomach. Reviewed, dictated and finalized at location F. A RECONCILIATION SPECIALIST IMPRESSION: 1. OG tube in the stomach.
--- NOTE | ~2023-08-03 | XR_ITS ---
Portable chest x-ray Comparison: 08/25/2023 Clinical History: Respiratory failure Findings: Endotracheal tube, NG tube, and right-sided PICC line remain in place. Possible minimal in terstitial prominence is unchanged. Cardiomediastinal silhouette is stable. Bones and soft tissues a re unremarkable. Impression: Possible mild interstitial prominence, unchanged. Stable support tubes. Reviewed, dictated and finalized at location . RDS MANAGEMENT SPECIALIST Impression: Possible mild interstitial prominence, unchanged. Stable support tubes.
--- NOTE | ~2023-08-03 | XR_ITS ---
Supine and upright views of the abdomen Clinical history: Abdominal distention Findings: Bowel gas pattern is nonspecific. There is marked distention of what appears to be the cecu m, which is filled with stool. No evidence for obstruction or free air. No abnormal mass lesion or ca lcification is seen. Osseous structures are intact. Impression: Marked cecal distention, which is probable stool. Correlate for constipation. Reviewed, dictated and finalized at location M. RECOVERER Impression: Marked cecal distention, which is probable stool. Correlate for constipation.
--- NOTE | ~2023-08-03 | XR_ITS ---
EXAMINATION: XR chest 1V portable DATE: 08/09/2023 03:34 INDICATION: Respiratory distress. TECHNIQUE: A single frontal view of the chest was obtained. COMPARISON: Chest single view 08/08/2023 FINDINGS: There are airspace opacities in the lower lung zones. There is an interstitial pattern, con sistent with pulmonary edema. There is a small left pleural effusion. No pneumothorax. Cardiomegaly i s noted. Median sternotomy wires and mediastinal surgical clips are seen, likely from prior coronary artery bypass grafting. A right upper extremity peripherally inserted central venous catheter (PICC) is seen with tip at the superior cavoatrial junction. IMPRESSION: 1. Mild pulmonary edema. 2. Small left pleural effusion. 3. Airspace opacities in the lower lung zones with worsening on the right, consistent with atelectasi s versus pneumonia. 4. Cardiomegaly. Reviewed, dictated and finalized at location A. MANAGER IMPRESSION: 1. Mild pulmonary edema. 2. Small left pleural effusion. 3. Airspace opacities in the lower lung zones with worsening on the right, cons istent with atelectasis versus pneumonia. 4. Cardiomegaly.
--- NOTE | ~2023-08-03 | XR_ITS ---
Portable chest x-ray Comparison: 08/18/2020 Clinical History: Respiratory failure Findings: Endotracheal tube and right-sided PICC line are in satisfactory positions. There is stable probable small left pleural effusion with minimal left basilar atelectatic change. Right lung clear. Cardiomediastinal silhouette is stable. Bones and soft tissues are unremarkable. Impression: Stable support tubes. Probable small left pleural effusion with minimal left basilar atelectasis. Reviewed, dictated and finalized at location . OM CAGER Impression: Stable support tubes. Probable small left pleural effusion with minimal left basilar atelectasis.
--- NOTE | ~2023-08-03 | XR_ITS ---
EXAM: XR abdomen obstructive series DATE: 10/01/2023 19:02 HISTORY: Nausea with emesis. . COMPARISON: 09/08/2023; CT abdomen pelvis 09/18/2023. FINDINGS: Bilateral dependent atelectasis and possible small pleural effusions. Fractured inferior s ternotomy wire which remains in stable position. Mediastinal surgical clips. Pelvic and left lower qu adrant pigtail drains. Temperature probe. Multiple surgical clips over the pelvis. Scattered subcutan eous gas over the pelvis possibly related to the adjacent drain. Unremarkable bowel gas pattern. Enla rged liver. No abnormal abdominal calcification. Degenerative change in the spine and hips. IMPRESSION: No radiographic evidence of obstruction or ileus. Reviewed, dictated and finalized at location K. ER
--- NOTE | ~2023-08-03 | XR_ITS ---
Portable chest x-ray Comparison: 08/28/2023 Clinical History: Respiratory failure Findings: Endotracheal tube, NG tube, and right-sided PICC line are in satisfactory positions. Lungs remain clear. Cardiomediastinal silhouette is stable. Bones and soft tissues are unremarkable. Impression: Clear lungs. Support tubes, as above. Reviewed, dictated and finalized at location . GN TECH Impression: Clear lungs. Support tubes, as above.
--- NOTE | ~2023-08-03 | US_ITS ---
EXAMINATION: US venous doppler [facility] DATE: 09/07/2023 16:51 INDICATION: Fever . TECHNIQUE: Grayscale images without and with compression and Doppler images of the bilateral lower ex tremity veins were obtained. COMPARISON: None FINDINGS: The right common femoral vein, profunda (deep) femoral vein, femoral vein, popliteal vein, peroneal v ein, posterior tibial veins, and greater saphenous vein are patent. The left common femoral vein, profunda (deep) femoral vein, femoral vein, popliteal vein, peroneal v ein, posterior tibial veins, and greater saphenous vein are patent. IMPRESSION: Patent bilateral lower extremity veins. No evidence of deep venous thrombosis. Reviewed, dictated and finalized at location K. P MANAGER
--- NOTE | ~2023-08-03 | XR_ITS ---
EXAMINATION: XR chest 1V portable INDICATION: Respiratory failure TECHNIQUE: Portable AP chest at 0526 hours COMPARISON: 08/17/2023 FINDINGS: The endotracheal tube ends approximately 3.1 cm above the moreno. The nasogastric tube has been removed. A right upper extremity PICC ends with its tip in the proximal superior vena cava. Ther e is a small left pleural effusion. Bibasilar airspace opacities persist with slight worsening on the left. There is no pneumothorax. Median sternotomy wires and mediastinal surgical clips are seen, lik rokcy from prior coronary artery bypass grafting. IMPRESSION: 1. Small left pleural effusion. 2. Persistent bibasilar airspace opacities, with slight worsening on the left, consistent with atelec tasis versus pneumonia. Reviewed, dictated and finalized at location F. CUTTER IMPRESSION: 1. Small left pleural effusion. 2. Persistent bibasilar airspace opacities, with slight worsening on the left, consistent with atelectasis versus pneumonia.
--- NOTE | ~2023-08-03 | XR_ITS ---
EXAMINATION: XR chest 1V portable INDICATION: Respiratory failure TECHNIQUE: Portable AP chest at 0442 hours COMPARISON: 08/16/2023 FINDINGS: The endotracheal tube ends approximately 2.8 cm above the moreno. The nasogastric tube is f ollowed as far as the stomach. Its tip is beyond the inferior margin of the radiograph. A right upper extremity PICC ends with this tip in the proximal superior vena cava. Bibasilar airspace opacities p ersist but have improved, particularly on the left. No pneumothorax or pleural effusion. The cardiome diastinal silhouette is stable. Median sternotomy wires and mediastinal surgical clips are seen, like ly from prior coronary artery bypass grafting. IMPRESSION: 1. Persistent but improved bibasilar airspace opacities, consistent with atelectasis versus pneumonia . Reviewed, dictated and finalized at location F. AL MANAGER IMPRESSION: 1. Persistent but improved bibasilar airspace opacities, consistent with atelec tasis versus pneumonia.
--- NOTE | ~2023-08-03 | CT_ITS ---
EXAMINATION: CT abdomen pelvis w con INDICATION: Enterocutaneous fistula, abscess, new fever TECHNIQUE: Computed tomographic images of the abdomen and pelvis were obtained after the administrati on of 100 cc of Omnipaque 350 intravenous contrast. The dose-length product (DLP) was 1530.93 mGy-cm. Automated exposure control and iterative reconstruction technique were employed. COMPARISON: 08/26/2023 FINDINGS: Minimal dependent atelectasis is present in the lung bases. The heart size is normal. Punct ate calcifications in otherwise normal appearing liver and spleen likely represent healed granulomato us disease. The cholecystostomy has been removed. There is mild wall thickening of the gallbladder fu ndus. The pancreas and adrenal glands are normal. There are areas of cortical thinning of the kidneys . Cysts of the left kidney measure up to 1.5 cm. There is calcified atherosclerosis of the aorta and many of the other arteries. No pathologically enlarged abdominal or pelvic lymph nodes are identified . There are no dilated loops of bowel. All but one of the percutaneous abscess drains have been remov ed. The remaining catheter enters the pelvis via the left lower quadrant. An adjacent abscess measuri ng approximately 2.8 x 2.2 cm is not significantly changed (image 153). The previously described midl ine supraumbilical intra-abdominal abscess is not significantly changed measuring 3.2 x 1.5 cm (image 113). The hematoma of the right inguinal canal is not significantly changed. The bladder is decompre ssed by Weathers catheter. There is mild lumbar spondylosis. IMPRESSION: 1. Stable abdominal and pelvic abscesses as described above. 2. Stable right inguinal hematoma. 3. Percutaneous cholecystostomy tube with mild thickening of the gallbladder fundus which could be du e to recent percutaneous drainage. Reviewed, dictated and finalized at location B. GER TALENT IMPRESSION: 1. Stable abdominal and pelvic abscesses as described above. 2. Stable right inguinal hematoma. 3. Percutaneous cholecystostomy tube with mild thickening of the gallbladder fu ndus which could be due to recent percutaneous drainage.
--- NOTE | ~2023-08-03 | CT_ITS ---
EXAMINATION: CT abdomen pelvis wo con DATE: 08/18/2023 11:15 INDICATION: F/U Abdominal abscesses TECHNIQUE: Computed tomography (CT) of the abdomen and pelvis was performed without intravenous contr ast. Automated exposure control and iterative reconstruction technique were employed. The dose-length product was 1517.69 mGy-cm. COMPARISON: CT cap 08/15/2023. FINDINGS: Lower thorax: Resolved small pleural effusions. Decreased dependent atelectasis/consolidation. Tuttle ry artery calcifications Liver: Dystrophic right lobe calcifications. Biliary/Gallbladder: Gallbladder is decompressed by a cholecystostomy tube. No bile duct dilation. Pancreas: No mass or duct dilation. Spleen: Normal. Adrenals:No mass. Kidneys: No suspicious mass, obstructing stone, or hydronephrosis. Simple midpole left renal cyst. Bi lateral perinephric stranding. GI tract: The rectum is mildly dilated by formed stool. No small bowel dilation. Normal appendix. Div erticulosis without diverticulitis. Mesentery/Peritoneum: Mild mesenteric edema. No free air or free fluid. Multiple abdominal drainage catheters: Right upper quadrant terminating cholecystostomy tube-stable position, slightly smaller adjacent flui d collection which extends inferiorly. Right anterolateral abdomen-unchanged position, unchanged adjacent small fluid collection. Midline upper abdomen, slightly left of midline-unchanged position. Unchanged small adjacent fluid co llection. Anterior abdomen at midline just above the umbilicus-stable position, no significant adjacent fluid. Left upper quadrant-stable position, no significant adjacent fluid. Left lateral abdomen, unchanged position, no significant adjacent fluid. Left lower quadrant terminating in the deep pelvis-slight increase in size of the adjacent fluid silvestre ection, now measuring 3.0 cm (axial image 148/210). Retroperitoneum: No mass. Atherosclerotic abdominal aortic and/or arterial calcifications. Pelvis: Mild bladder wall thickening in a partially distended urinary bladder. Weathers catheter is pres ent, balloon not visualized. Soft Tissues: Right inguinal mass with subcutaneous gas, unchanged, possible infected hematoma. Bones: No acute osseous finding. IMPRESSION: Decreased pleural effusions and bilateral dependent atelectasis/consolidation. Slightly increased fluid collection adjacent to the left lower quadrant pigtail drain in the deep pel vis measuring 3.0 cm. Correlate with drainage/tube function. The remaining intra-abdominal collections are either stable or slightly smaller in size. Stable possi ble right groin infected hematoma. Cystitis versus bladder wall thickening from incomplete distention. A Weathers catheter is present, balloon not visualized, correlate with inflation status and tube functio n. Mild fecal impaction Reviewed, dictated and finalized at location K. ENTARY READING TUTOR IMPRESSION: Decreased pleural effusions and bilateral dependent atelectasis/consolidation. Slightly increased fluid collection adjacent to the left lower quadrant pigtail drain in the deep pelvis measuring 3.0 cm. Correlate with drainage/tube functi on. The remaining intra-abdominal collections are either stable or slightly smaller in size. Stable possible right groin infected hematoma. Cystitis versus bladder wall thickening from incomplete distention. A Weathers catheter is present, balloon not visualized, correlate with inflation s tatus and tube function. Mild fecal impaction
--- NOTE | ~2023-08-03 | CT_ITS ---
EXAMINATION: CT abdomen pelvis w con DATE: 08/13/2023 12:43 INDICATION: Intra-abdominal abscess. TECHNIQUE: Computed tomography (CT) of the abdomen and pelvis was performed with 100 mL Omnipaque 350 intravenous contrast. Automated exposure control and iterative reconstruction technique were employe d. The dose-length product was 1756.33 mGy-cm. COMPARISON: CT 08/09/2023 FINDINGS: The visualized portions of the lung bases demonstrate small pleural effusions and mild atel ectasis. Calcified pulmonary nodules are consistent with old granulomatous disease. There is left atr ial enlargement of the heart. There are changes of coronary artery bypass grafting. There are coronar y artery calcifications. No pericardial effusion. A right upper extremity peripherally inserted centr al venous catheter (PICC) is seen with tip at the superior cavoatrial junction. Calcifications in the liver and spleen are consistent with old granulomatous disease. The gallbladder is decompressed by a cholecystostomy tube. The pancreas and adrenal glands are normal. There is cortical thinning of the kidneys. There are cysts in left kidney measuring up to 2.1 cm. Stool distends the colon. There is di verticulosis of the colon without evidence of diverticulitis. The appendix is not visualized. There i s calcified atherosclerosis of the aorta and many of the other arteries. There is a left-sided percut aneous drain with tip anterior to the rectum. There is a mass with gas involving the right inguinal c anal and right scrotum measuring 14.0 x 2.6 x 5.9 cm. There are multiple peritoneal abscesses. For ex ample, there is a 6.1 x 3.5 x 3.8 cm abscess in left abdomen. There is a 4.7 x 1.7 x 1.6 cm abscess i n the midabdomen. There is a 5.6 x 3.9 x 5.6 cm abscess in the left abdomen. There is a 4.0 x 3.5 x 4 .3 cm abscess in the midabdomen. There is a 5.6 x 1.7 x 3.2 cm abscess in the right abdomen. There is a 6.5 x 2.6 x 3.2 cm abscess in the anterior mid abdomen. There are other smaller abscesses. There a re no pathologically enlarged lymph nodes. There is mild thoracic and lumbar spondylosis. IMPRESSION: 1. Small pleural effusions. 2. Multiple intraperitoneal abscesses, similar to 08/09/23. 3. Left-sided percutaneous drain with little residual fluid adjacent to the drain. 4. Cholecystostomy tube in expected position. 5. Worsened mass involving the right inguinal canal and right scrotum, likely infected hematoma. Reviewed, dictated and finalized at location E. NG BOARD MARKER IMPRESSION: 1. Small pleural effusions. 2. Multiple intraperitoneal abscesses, similar to 08/09/23. 3. Left-sided percutaneous drain with little residual fluid adjacent to the kenzie in. 4. Cholecystostomy tube in expected position. 5. Worsened mass involving the right inguinal canal and right scrotum, likely i nfected hematoma.
--- NOTE | ~2023-08-03 | US_ITS ---
EXAMINATION: US venous doppler [facility] DATE: 09/07/2023 16:51 INDICATION: Fever . TECHNIQUE: Grayscale ultrasound images without and with compression and Doppler ultrasound images of the bilateral upper extremity veins were obtained. COMPARISON: None. FINDINGS: The bilateral internal jugular veins were not visualized as they are covered by bandage material. The visualized portions of the bilateral subclavian vein, axillary vein, brachial veins, basilic vein, c ephalic vein, radial vein, and ulnar vein are patent. IMPRESSION: The bilateral internal jugular veins are covered by bandage material and were not imaged. No deep venous thrombosis in the remaining veins either upper extremity. Reviewed, dictated and finalized at location K. EYOR TECHNICIAN IMPRESSION: The bilateral internal jugular veins are covered by bandage material and were n ot imaged. No deep venous thrombosis in the remaining veins either upper extremity.
--- NOTE | ~2023-08-03 | CT_ITS ---
EXAMINATION: CT chest abdomen pelvis wo con DATE: 08/06/2023 12:38 INDICATION: Abdominal distention. TECHNIQUE: Computed tomography (CT) of the chest, abdomen, and pelvis was performed without intraveno us contrast. Automated exposure control and iterative reconstruction technique were employed. The dos e-length product was 1789.06 mGy-cm. COMPARISON: CT abdomen and pelvis 08/04/2023 FINDINGS: CHEST CT: There are small pleural effusions. There is smooth septal thickening in the lungs, consistent with mi ld pulmonary edema. There is mild scarring at the lung apices. There is dependent atelectasis bilater ally. Calcified lung nodules and calcified hilar lymph nodes are consistent with old granulomatous di sease. Cardiomegaly is noted. There are coronary artery calcifications. There are calcifications of a ortic valve. There are changes of coronary artery bypass grafting. No pericardial effusion. There is mild thoracic spondylosis. ABDOMEN/PELVIS CT: Calcifications in the liver and spleen are consistent with old granulomatous disease. The gallbladder is distended. The pancreas and adrenal glands are normal. There is cortical thinning of the kidneys. There is an 18 mm cyst in left kidney. There is calcified atherosclerosis of the aorta and many of t he other arteries. There is diverticulosis of the colon without evidence of diverticulitis. There are no dilated loops of bowel. The appendix is normal. There is free intraperitoneal gas, consistent wit h recent surgery. There is an umbilical hernia containing fat. There is a small volume of ascites wit h areas of peritoneal thickening. There is edema of the body wall and intra-abdominal fat. There are no pathologically enlarged lymph nodes. There is mild lumbar spondylosis. IMPRESSION: 1. Mild pulmonary edema. 2. Small pleural effusions. 3. Gallbladder distention, which may be secondary to fasting. Correlate with physical exam to exclude acute cholecystitis. 4. Stable small volume of ascites with peritoneal thickening, likely an exudate. Reviewed, dictated and finalized at location A. ING MACHINE OPERATOR INSULATION IMPRESSION: 1. Mild pulmonary edema. 2. Small pleural effusions. 3. Gallbladder distention, which may be secondary to fasting. Correlate with ph ysical exam to exclude acute cholecystitis. 4. Stable small volume of ascites with peritoneal thickening, likely an exudate .
--- NOTE | ~2023-08-03 | XR_ITS ---
EXAMINATION: XR catheter cholangiogram DATE: 08/29/2023 11:07 INDICATION: Assess cystic duct patency post percutaneous cholecystostomy tube placement. TECHNIQUE: Multiple fluoroscopic images of the right upper quadrant were obtained during injection of 20 mL Omnipaque 350 contrast into patient's existing percutaneous cholecystostomy tube. A total of 2 0 fluoroscopic images were obtained. Residual contrast was aspirated at the conclusion of the procedu re and the catheter flushed with 10 mL sterile saline. The catheter was then reattached to kathleen johnson. The amount of fluoroscopy time used during this procedure was 0.6 minutes. COMPARISON: None. FINDINGS: Contrast injected through the percutaneous cholecystostomy tube fills the normal-appearing gallbladder. The cystic duct is patent with contrast filling the normal appearing common bile duct wh ich tapers smoothly distally with no intraluminal filling defects or stricture. Contrast extends int o the duodenum and central intrahepatic biliary tree which also appears normal. IMPRESSION: 1. No filling defects or strictures within the cystic duct, common bile duct or contrast opacified ce ntral biliary tree. Reviewed, dictated and finalized at location A. ADVISER IMPRESSION: 1. No filling defects or strictures within the cystic duct, common bile duct or contrast opacified central biliary tree.
--- NOTE | ~2023-08-03 | XR_ITS ---
EXAMINATION: XR chest 1V portable INDICATION: Respiratory failure TECHNIQUE: Portable AP chest at 0525 hours COMPARISON: 08/15/2023 FINDINGS: The endotracheal tube ends approximately 4.6 cm above the moreno. The nasogastric tube is f ollowed as far as the stomach. Its tip is beyond the inferior margin of the radiograph. Bibasilar air space opacities persist without significant change. There are small pleural effusions. No pneumothora x is identified. A right upper extremity PICC ends with its tip in the midsuperior vena cava. Changes of prior cardiac surgery are noted. IMPRESSION: 1. Stable bibasilar airspace opacities, consistent with atelectasis versus pneumonia. 2. Small pleural effusions. Reviewed, dictated and finalized at location F. RTMENT OPERATIONS MANAGER IMPRESSION: 1. Stable bibasilar airspace opacities, consistent with atelectasis versus pneu monia. 2. Small pleural effusions.
--- NOTE | ~2023-08-03 | CT_ITS ---
EXAMINATION: CT chest abdomen pelvis wo con DATE: 08/09/2023 11:13 INDICATION: Hypoxemia. Pelvic abscess. TECHNIQUE: Computed tomography (CT) of the chest, abdomen, and pelvis was performed without intraveno us contrast. Automated exposure control and iterative reconstruction technique were employed. The dos e-length product was 1843.71 mGy-cm. COMPARISON: CT 08/06/2023 FINDINGS: CHEST CT: There is mild scarring at the lung apices. There is mild emphysema. There are mild groundglass opacit ies in right upper lobe. There is smooth septal thickening bilaterally. There is dependent atelectasi s laterally. Calcified lung nodules and calcified hilar lymph nodes are consistent with old granuloma tous disease. There are small pleural effusions. There is left atrial enlargement of the heart. There are coronary artery calcifications. There are changes of coronary artery bypass grafting. There are calcifications of the aortic valve. No pericardial effusion. There is mild thoracic spondylosis. ABDOMEN/PELVIS CT: Calcifications in the liver and spleen are consistent with old granulomatous disease. The gallbladder is decompressed by a cholecystostomy tube. The pancreas and adrenal glands are normal. There is ashley ical thinning of the kidneys. There is calcified atherosclerosis of the aorta and many of the other a rteries. The bladder is decompressed by a Weathers catheter. There are changes of right inguinal hernia repair with tethering of the bladder. Stool distends the rectum. There is diverticulosis of the colon without evidence of diverticulitis. The appendix is not visualized. There is scattered foci of free intraperitoneal gas, consistent with recent surgery. There is fat stranding in the abdomen and body w all, consistent with edema. There is a 4.0 x 2.9 cm fluid collection in left abdomen. There is a 3.8 x 1.7 cm fluid collection in the midabdomen. There is a 5.1 x 1.3 cm fluid collection in the left abd omen. There is a 1.7 x 1.3 cm fluid collection in right abdomen. There is a left-sided percutaneous d rain. There is little residual fluid adjacent to the drain. There are no pathologically enlarged lymp h nodes. There is mild lumbar spondylosis. IMPRESSION: 1. Mild pulmonary edema. 2. Small pleural effusions. 3. Multiple peritoneal fluid collections, consistent with abscesses. 4. Left-sided percutaneous drain with little residual fluid adjacent to the drain. 5. Cholecystostomy tube in expected position. Reviewed, dictated and finalized at location A. L GAUGE MAKER IMPRESSION: 1. Mild pulmonary edema. 2. Small pleural effusions. 3. Multiple peritoneal fluid collections, consistent with abscesses. 4. Left-sided percutaneous drain with little residual fluid adjacent to the kenzie in. 5. Cholecystostomy tube in expected position.
--- NOTE | ~2023-08-03 | US_ITS ---
EXAMINATION: US paracentesis abd w/image DATE: 09/09/2023 11:12 INDICATION: Elevated intra-abdominal pressures. TECHNIQUE: The procedure and its risks and benefits were discussed with the patient's daughter. Michael roberts risks discussed included bleeding and infection. The skin was prepped and draped in sterile fash ion. 1% lidocaine was used for local anesthesia. Under ultrasound guidance, a 5 Fr catheter with troc oscar was advanced into the ascites in the left lower quadrant. Fluid was aspirated into vacuum bottles . The catheter was removed, and a dressing was applied. There were no immediate complications. FINDINGS: Ultrasound images demonstrate a complex ascites in the left lower quadrant with relatively equivalent size of a more superficial anechoic component and deeper hypoechoic component. Subsequent images dem onstrate the catheter within the fluid. The fluid initially appeared clear julianne-colored suggesting t hat this could represent a subacute hemoperitoneum with layering hematocrit. Later however during the aspiration the fluid became more cloudy and light brownish colored more concerning for infection. Th ere is also aspiration of a few small bubbles of gas which could represent residual gas from the rece nt prior surgery although does raise the possibility for persistent basis communication to the bowel or other bowel perforation. IMPRESSION: 1. Successful ultrasound-guided paracentesis yielding 700 mL of cloudy light brown fluid suspicious for infection. 2. A few small gas bubbles were observed within the aspirated fluid which could present residual post operative gas from the recent surgery although differential would include other bowel perforation or persistence of a prior fistulous communication to the bowel. Reviewed, dictated and finalized at location A. GENCY DEPARTMENT COORDINATOR IMPRESSION: 1. Successful ultrasound-guided paracentesis yielding 700 mL of cloudy light b rown fluid suspicious for infection. 2. A few small gas bubbles were observed within the aspirated fluid which could present residual postoperative gas from the recent surgery although differenti al would include other bowel perforation or persistence of a prior fistulous co mmunication to the bowel.
--- NOTE | ~2023-08-03 | XR_ITS ---
Portable chest x-ray Comparison: 08/29/2023 Clinical History: Respiratory failure Findings: Endotracheal tube, NG tube, and right-sided PICC line are in place. Lungs remain clear. C ardiomediastinal silhouette is stable. Bones and soft tissues are unremarkable. Impression: Clear lungs. Stable support tubes. Reviewed, dictated and finalized at location . PRINTER Impression: Clear lungs. Stable support tubes.
--- NOTE | ~2023-08-03 | XR_ITS ---
EXAMINATION: XR chest ET placement INDICATION: Respiratory failure TECHNIQUE: Portable AP chest at 0819 hours COMPARISON: 0727 hours FINDINGS: An endotracheal tube has been inserted which ends 3 cm above the moreno. The nasogastric tu be is followed as far as the stomach. Its tip is beyond the inferior margin of the radiograph. A righ t upper extremity PICC ends with its tip in the proximal superior vena cava. Patchy airspace opacitie s persist throughout all lung zones with slight improvement. There are small pleural effusions. No pn eumothorax is identified. IMPRESSION: 1. Endotracheal and nasogastric tubes inserted in adequate position. 2. Diffuse lung disease with slight improvement, consistent with pulmonary edema versus pneumonia raina sylvester atelectasis. 3. Small pleural effusions. Reviewed, dictated and finalized at location F. MACY TECHNICIAN IMPRESSION: 1. Endotracheal and nasogastric tubes inserted in adequate position. 2. Diffuse lung disease with slight improvement, consistent with pulmonary olga a versus pneumonia versus atelectasis. 3. Small pleural effusions.
--- NOTE | ~2023-08-03 | CT_ITS ---
Non-contrast Head CT History: Altered mental status COMPARISON: 08/06/2023 Technique: Axial non-contrast imaging of the brain was performed. Dose reduction technique was used on this scan by utilizing automated exposure control and iterative reconstruction technique. The dose -length product (DLP) was 681.00 mGy-cm. Findings: There is no evidence of intracranial hemorrhage, mass lesion, or acute infarct. Brain par enchyma appears normal. The ventricles and subarachnoid spaces are normal in size. The calvarium ap pears normal. The visualized paranasal sinuses and mastoid air cells are clear. Impression: No significant abnormality seen. Reviewed, dictated and finalized at location . UP EXAMINER Impression: No significant abnormality seen.
--- NOTE | ~2023-08-03 | XR_ITS ---
Portable chest x-ray Comparison: 02/19/2023 Clinical History: This of breath Findings: There are relatively low lung volumes, possibly due to expiratory image. There is mild haz iness/interstitial prominence. There is mild central pulmonary venous crowding/congestion. Cardiomed iastinal silhouette is stable. Bones and soft tissues are unremarkable. Impression: Low lung volumes, probably due to expiratory image. Possible minimal pulmonary edema versus hypoventi latory changes. Reviewed, dictated and finalized at location M. ST RANGER TECHNICIAN Impression: Low lung volumes, probably due to expiratory image. Possible minimal pulmonary edema versus hypoventilatory changes.
--- NOTE | ~2023-08-03 | XR_ITS ---
Portable chest x-ray Comparison: 08/20/2023 Clinical History: Tube placement Findings: Endotracheal tube, NG tube, and right-sided PICC line are in satisfactory positions. Stabl e haziness at the left lung base noted. Right lung remains clear. Cardiomediastinal silhouette is st able costophrenic is scattered. Bones and soft tissues are unremarkable. Impression: Stable support tubes. Stable haziness at the left lung base, nonspecific. Reviewed, dictated and finalized at location M. LINE FEEDER Impression: Stable support tubes. Stable haziness at the left lung base, nonspecific.
--- NOTE | ~2023-08-03 | XR_ITS ---
EXAMINATION: XR chest 1V portable DATE: 09/21/2023 05:32 INDICATION: Mechanical ventilation. TECHNIQUE: A single frontal view of the chest was obtained. COMPARISON: Chest single view 09/17/2023, CT abdomen and pelvis 09/18/2023 FINDINGS: Again seen is elevation of left hemidiaphragm. There is mild atelectasis at left lung base. No pleural effusion or pneumothorax. The heart size is normal. Median sternotomy wires and mediastin al surgical clips are seen, likely from prior coronary artery bypass grafting. A tracheostomy tube is noted. The nasogastric tube tip is beyond the inferior margin of the radiograph, but at least to the stomach. A right upper extremity peripherally inserted central venous catheter (PICC) is seen with t ip in the superior vena cava. IMPRESSION: 1. Mild atelectasis at left lung base. Reviewed, dictated and finalized at location A. GENICS ENGINEER
[2023-08-03] MEDS: IBUPROFEN IV 800 MG/200 ML 800 MG/200 ML BAG 400 MG IVPB (02:19)
[2023-08-03] MEDS: HYDROcodone/acetaminophen (*CRX) 7.5-325 MG TABLET 1 TAB PO ×3 (02:21→19:49)
[2023-08-03] MEDS: LEVOTHYROXINE SODIUM 100 MCG TABLET PO (05:50)
[2023-08-03 06:32] LABS: Hematocrit 42.9 % (42.0-52.0); Hemoglobin 13.9 g/dL (14.0-18.0); Mean Corpuscular HGB Conc 32.4 g/dl (32-36); Mean Corpuscular Hemoglobin 30.9 pg (26-34); Mean Corpuscular Volume 95.3 fl (80-100); Platelet Count Result 185 k/mm3 (150-375); Red Cell Distribution Width 12.8 % (11.5-14.5); White Blood Count 9.7 K/mm3 (4.5-10.0)
[2023-08-03 06:48] LABS: Anion Gap 6 mmol/L (8-16); Blood Urea Nitrogen 20 mg/dL (9-20); Calcium 8.3 mg/dL (8.4-10.2); Carbon Dioxide 26 mmol/L (22-30); Chloride 105 mmol/L (98-107); Estimated CRCL calculation 69 ml/min; Estimated Glomerular Filt Rate > 60; Glucose 148 mg/dL (65-110); Potassium 4.1 mmol/L (3.4-5.0); Sodium 137 mmol/L (137-145)
[2023-08-03] MEDS: ONDANSETRON INJ 4 MG/2 ML VIAL IV PUSH (10:22)
[2023-08-03] MEDS: SIMETHICONE 80 MG TAB.CHEW PO ×2 (10:25→15:05)
--- NOTE | 2023-08-03 12:41 | WPDANESPN ---
Anes - Prog Note Post-Op Date/Time: 08/03/23 12:41 Cardiovascular status: other (soft BP. asymptomatic) Respiratory status: normal Airway patency: baseline Mental status: baseline Post-Op hydration status: normal Vital Signs: Last Vital Signs Temp 36.3 C L 08/03/23 12:00 Pulse 82 08/03/23 12:00 Resp 18 08/03/23 12:00 BP 92/60 L 08/03/23 12:00 Pulse Ox 97 08/03/23 12:00 O2 Del Method Room Air 08/02/23 15:32 O2 Flow Rate 8 08/02/23 14:47 Pain Score (VAS): 11/02 I/O: Intake & Output 08/02/23 08/03/23 08/03/23 23:59 07:59 15:59 Intake Total 200 200 240 Balance 200 200 240 Laboratory Tests 08/03/23 06:15 08/03/23 06:15 08/02/23 08/03/23 16:44 06:15 WBC 9.7 RBC 4.50 L Hgb 13.9 L Hct 42.9 MCV 95.3 MCH 30.9 MCHC 32.4 RDW 12.8 Plt Count 185 MPV 11.0 H Sodium 137 Potassium 4.1 Chloride 105 Carbon Dioxide 26 Anion Gap 6 L BUN 20 Creatinine 0.80 0.90 Estim Creat Clear Calc 77 69 Estimated GFR > 60 > 60 Glucose 148 H Calcium 8.3 L Post-procedural complaints: none Patient Feedback: Patient satisfied with anesthetic care.
--- NOTE | 2023-08-03 12:43 | PM.PNGS ---
Progress Note: A&P Assessment and Plan (1) Right inguinal hernia: Code(s): K40.90 - Unilateral inguinal hernia, without obstruction or gangrene, not specified as recurrent Status: Chronic Assessment and Plan: Inguinal incision healing well. Increase activity as tolerated (2) Postoperative ileus: Code(s): K91.89 - Other postprocedural complications and disorders of digestive system; K56.7 - Ileus, unspecified Status: Acute Assessment and Plan: Abdomen distended today. Will give Dulcolax suppository and start MiraLax Start IV fluids since he isn't having much oral intake yet. (3) Paroxysmal atrial fibrillation: Code(s): I48.0 - Paroxysmal atrial fibrillation Status: Chronic Subjective Subjective Date/Time Seen: 08/03/23 12:43 Interval history: Patient feeling bloated today. Not much appetite. No flatus or BM yet. Not much groin pain but feeling pain across lower abdomen. Exam GI: Inspection: distended GI Palp: Yes Firmness to palpation present (GI), Yes Tenderness to palpation present (GI) (lower abdomen) and No Guarding due to palpation present (GI) Percussion: Yes tympanic to percussion : Scrotum: no inguinal hernias Other: Incision intact with minimal ecchymosis Objective Data Vital Signs Vital Signs: Vital Signs - 24 hr 08/02/23 14:17 08/02/23 14:32 08/02/23 14:47 Temperature 36.7 C Pulse Rate 86 82 78 Respiratory Rate 19 18 18 Blood Pressure 121/86 121/88 109/84 Pulse Oximetry 96 99 100 Oxygen Delivery Simple Face Mask Simple Face Mask Simple Face Mask Oxygen Flow Rate 10 10 8 08/02/23 15:02 08/02/23 15:17 08/02/23 15:32 Temperature Pulse Rate 76 82 73 Respiratory Rate 15 15 17 Blood Pressure 120/68 120/78 113/82 Pulse Oximetry 95 93 93 Oxygen Delivery Room Air Room Air Room Air Oxygen Flow Rate 08/02/23 16:00 08/02/23 16:15 08/02/23 16:45 Temperature 36.8 C 36.9 C 36.8 C Pulse Rate 81 75 77 Respiratory Rate 16 16 14 Blood Pressure 126/71 130/67 126/75 Pulse Oximetry 94 92 97 Oxygen Delivery Oxygen Flow Rate 08/02/23 17:45 08/02/23 20:47 08/02/23 23:54 Temperature 36.9 C 37.2 C 37.1 C Pulse Rate 78 102 H 94 Respiratory Rate 16 30 H 22 H Blood Pressure 128/70 156/84 H 127/71 Pulse Oximetry 98 92 95 Oxygen Delivery Oxygen Flow Rate 08/03/23 04:00 08/03/23 07:44 08/03/23 12:00 Temperature 36.6 C 36.7 C 36.3 C L Pulse Rate 77 83 82 Respiratory Rate 22 H 20 18 Blood Pressure 115/59 L 118/70 92/60 L Pulse Oximetry 97 95 97 Oxygen Delivery Oxygen Flow Rate Intake/Output Intake/Output: Intake & Output 07/31/23 08/01/23 08/02/23 08/03/23 23:59 23:59 23:59 23:59 Intake Total 550 440 Balance 550 440 Meds/Results Medications: Active Medications Generic Name Dose Route Start Last Admin Trade Name Freq PRN Reason Stop Dose Admin Acetaminophen 500 mg 08/02/23 15:46 08/02/23 18:38 Acetaminophen 500 Mg Tablet PO 500 mg Q6H PRN Administration Mild Pain (1-3) or Fever Hydrocodone Bitart/Acetaminophen 1 tab 08/02/23 15:46 Hydrocodone/Acetaminophen (*Crx) 5-325 Mg Tablet PO Q4H PRN Pain Rated 4-6 Hydrocodone Bitart/Acetaminophen 1 tab 08/02/23 15:46 08/03/23 05:53 Hydrocodone/Acetaminophen (*Crx) 7.5-325 Mg Tablet PO 1 tab Q4H PRN Administration Pain Rated 7-10 Amlodipine Besylate 10 mg 08/03/23 09:00 Amlodipine Besylate 5 Mg Tablet PO DAILY [facility] Aspirin 162 mg 08/03/23 09:00 Aspirin 81 Mg Chewable Tablet PO DAILY [facility] Enoxaparin Sodium 40 mg 08/03/23 09:00 Enoxaparin 40 Mg/0.4 Ml Syringe SUB-Q DAILY [facility] Fentanyl Citrate 25 mcg 08/02/23 15:46 Fentanyl Citrate Inj (*Crx) 100 Mcg/2 Ml Vial IV PUSH Q2H PRN Pain Rated 7-10 Fentanyl Citrate 12.5 mcg 08/02/23 15:46 Fentanyl Citrate Inj (*Crx) 100 Mcg/2 Ml Vial IV PUSH Q2H PRN Pain Rated 4-6 Ibuprofen 800 mg
[2023-08-03] MEDS: LACTATED RINGERS 1,000 ML 100 ML IV CONT ×2 (13:15→23:23)
[2023-08-03] MEDS: polyethylene glycoL 3350 17 GM POWD.PACK PO (13:15)
[2023-08-03] MEDS: BISACODYL 10 MG SUPPOSITORY RECTAL (13:15)
[2023-08-03] MEDS: ENOXAPARIN 40 MG/0.4 ML SYRINGE SUB-Q (13:20)
[2023-08-04] VITALS (9 sets, daily range): BP systolic 90–139; BP diastolic 48–87; PULSE 64–130; RESP 18–26; TEMP 35.9–37.3; O2SAT 90–94
[2023-08-04] MEDS: IBUPROFEN IV 800 MG/200 ML 800 MG/200 ML BAG 400 MG IVPB ×3 (01:14→13:00)
[2023-08-04] MEDS: LEVOTHYROXINE SODIUM 100 MCG TABLET PO (06:23)
[2023-08-04 06:46] LABS: Hematocrit 43.6 % (42.0-52.0); Hemoglobin 13.6 g/dL (14.0-18.0); Mean Corpuscular HGB Conc 31.2 g/dl (32-36); Mean Corpuscular Hemoglobin 30.8 pg (26-34); Mean Corpuscular Volume 98.6 fl (80-100); Mean Platelet Volume 11.3 fl (7.4-10.4); Platelet Count Result 189 k/mm3 (150-375); Red Blood Count 4.42 M/mm3 (4.6-6.20); Red Cell Distribution Width 13.5 % (11.5-14.5); White Blood Count 8.1 K/mm3 (4.5-10.0)
[2023-08-04 06:57] LABS: Anion Gap 7 mmol/L (8-16); Blood Urea Nitrogen 30 mg/dL (9-20); Calcium 8.4 mg/dL (8.4-10.2); Carbon Dioxide 28 mmol/L (22-30); Chloride 102 mmol/L (98-107); Estimated CRCL calculation 49 ml/min; Estimated Glomerular Filt Rate 53; Glucose 118 mg/dL (65-110); Potassium 4.5 mmol/L (3.4-5.0); Sodium 137 mmol/L (137-145)
[2023-08-04] MEDS: SIMETHICONE 80 MG TAB.CHEW PO (09:49)
[2023-08-04] MEDS: ASPIRIN 81 MG CHEWABLE TABLET 162 MG PO (09:49)
[2023-08-04] MEDS: LORATADINE 10 MG TABLET PO (09:49)
[2023-08-04] MEDS: ENOXAPARIN 40 MG/0.4 ML SYRINGE SUB-Q (09:50)
[2023-08-04] MEDS: polyethylene glycoL 3350 17 GM POWD.PACK PO (09:50)
[2023-08-04] MEDS: HYDROcodone/acetaminophen (*CRX) 7.5-325 MG TABLET 1 TAB PO (13:38)
--- NOTE | 2023-08-04 13:47 | ECG_ITS ---
Measurements Intervals [place] Rate: 123 P: [place]: 0 QRS: 25 QRSD: 101 T: 15 QT: 305 QTc: 438 Interpretive Statements ATRIAL FIBRILLATION WITH RAPID VENTRICULAR RESPONSE MINIMAL Q WAVES- INFERIOR LEADS BASELINE WANDER- V6 ABNORMAL ECG COMPARED TO ECG 02/19/2023 08:12:06 HEART RATE HAS INCREASED Electronically Signed On 08-04-2023 19:16:02 RAM CAR OPERATOR by Servando Cortez D.O.
--- NOTE | 2023-08-04 14:10 | PM.PNGS ---
Progress Note: A&P Assessment and Plan (1) Right inguinal hernia: Code(s): K40.90 - Unilateral inguinal hernia, without obstruction or gangrene, not specified as recurrent Status: Chronic Assessment and Plan: Groin incision looks goo. Mostly having abdominal complaints. See below. (2) Peritonitis (acute) generalized: Code(s): K65.0 - Generalized (acute) peritonitis Status: Acute Assessment and Plan: Now experiencing diffuse abdominal pain with guarding and rebound tenderness. Will get Stat CT abd/pelvis to further evaluate. There didn't appear to be any concern for ischemic bowel during the surgery. Obstruction, perforation, or ileus in differential. (3) Postoperative ileus: Code(s): K91.89 - Other postprocedural complications and disorders of digestive system; K56.7 - Ileus, unspecified Status: Acute (4) Atrial fibrillation with rapid ventricular response: Code(s): I48.91 - Unspecified atrial fibrillation Status: Acute Assessment and Plan: Patient with hx of paroxysmal Afib, now in Afib with RVR. Will consult cardiology for treatment. Home meds have been held because of low BP. Not on a beta sheng at home. Subjective Subjective Date/Time Seen: 08/04/23 14:10 Interval history: Patient still feeling very boated and having diffuse abdominal pain. Had a BM yesterday. None today. Tachycardic this AM and feeling diaphoretic this afternoon. BP low but staying fairly stable. Exam Cardio: Rate: tachycardic GI: Inspection: distended GI Palp: Yes Firmness to palpation present (GI), Yes Tenderness to palpation present (GI) (diffuse), Yes Guarding due to palpation present (GI) and Yes Rebound tenderness present Objective Data Vital Signs Vital Signs: Vital Signs - 24 hr 08/03/23 16:00 08/03/23 19:55 08/03/23 21:33 Temperature 36.7 C 36.9 C Pulse Rate 88 116 H 116 H Respiratory Rate 20 24 H 24 H Blood Pressure 104/67 114/71 Pulse Oximetry 93 91 91 Oxygen Delivery Room Air 08/04/23 00:00 08/04/23 04:00 08/04/23 09:35 Temperature 36.4 C L 35.9 C L 36.8 C Pulse Rate 108 H 110 H 98 Respiratory Rate 24 H 22 H 20 Blood Pressure 139/87 108/73 96/58 L Pulse Oximetry 91 90 92 Oxygen Delivery 08/04/23 13:15 Temperature 36.8 C Pulse Rate 107 H Respiratory Rate 26 H Blood Pressure 94/64 L Pulse Oximetry 94 Oxygen Delivery Intake/Output Intake/Output: Intake & Output 08/01/23 08/02/23 08/03/23 08/04/23 23:59 23:59 23:59 23:59 Intake Total 550 1440 400 Output Total 3 Balance 550 1440 397 Meds/Results Medications: Active Medications Generic Name Dose Route Start Last Admin Trade Name Freq PRN Reason Stop Dose Admin Acetaminophen 500 mg 08/02/23 15:46 08/02/23 18:38 Acetaminophen 500 Mg Tablet PO 500 mg Q6H PRN Administration Mild Pain (1-3) or Fever Hydrocodone Bitart/Acetaminophen 1 tab 08/02/23 15:46 Hydrocodone/Acetaminophen (*Crx) 5-325 Mg Tablet PO Q4H PRN Pain Rated 4-6 Hydrocodone Bitart/Acetaminophen 1 tab 08/02/23 15:46 08/04/23 13:38 Hydrocodone/Acetaminophen (*Crx) 7.5-325 Mg Tablet PO 1 tab Q4H PRN Administration Pain Rated 7-10 Amlodipine Besylate 10 mg 08/03/23 09:00 08/04/23 10:04 Amlodipine Besylate 5 Mg Tablet PO Not Given DAILY SUDEEP Aspirin 162 mg 08/03/23 09:00 08/04/23 09:49 Aspirin 81 Mg Chewable Tablet PO 162 mg DAILY SUDEEP Administration Enoxaparin Sodium 40 mg 08/03/23 09:00 08/04/23 09:50 Enoxaparin 40 Mg/0.4 Ml Syringe SUB-Q 40 mg DAILY SUDEEP Administration Ibuprofen 800 mg in 200 mls @ 400 mls/hr 08/02/23 15:46 08/04/23 06:53 Caldolor 800 Mg/200 Ml IVPB Infused Q6H PRN Infusion Pain Rated 1-3 Lactated Ringer's 1,000 mls @ 100 mls/hr 08/03/23 12:25 08/03/23 23:23 Lr - Lactated Ringers Iv IV CONT 100 mls/hr .Q10H SUDEEP Administration Levothyroxine Sodium 100 mcg 08/03/23 0
[2023-08-04] MEDS: LACTATED RINGERS 1,000 ML 100 ML IV CONT (15:15)
[2023-08-04 15:20] LABS: Troponin I < 0.012 ng/mL (0.000-0.034)
--- NOTE | 2023-08-04 15:50 | PC.NURSE ---
Received pt 08/03/23 with no complaints of pain related to surgery. Pt lower abdomen firm and distended. Pt uncomfortable relating to bowel movement. Pt BP low; held meds. Info to MD, orders of fluid and suppository. Gave simethicone and suppository. Pt able to have BM, but he needs to stool more. Pt declining to eat much. Report given to night RN. Night RN report back to this RN this AM includes c/o SOB, upper abdomen distension and firmness, continued need to have BM, issues swallowing pills and family acknowledging that pt has 50+years of difficulty swallowing to the point that he often chokes on food and pills. Pt upper ABD distended and firm. Pt states he feels need to have BM soon. Pt BP soft. MD made aware of continued low pressure today again held meds, also made aware of swallowing issues. No need to consult hospitalist/GI at this time. Pt abd discomfort continuing to grow and BP continuing to drop. Pt diaphoretic and tachypneic. Call to MD exchange; held for 15 mins. Call MD, left message. MD arrived to floor and eval'ed pt. Pt stat EKG reading afib RVR shown to MD who added cardiology onboard. Requested tele order; received and placed on pt. Cardio called to this RN; cardio given pt update. CTA report up. made aware. Orders received.
--- NOTE | 2023-08-04 19:39 | PC.NURSE ---
faxed paperwork to [facility] pt is suppose to transfer to [facility], family aware.
--- NOTE | 2023-08-04 19:57 | PC.NURSE ---
report called per Reji Rn day shift, will be transferring patient to [facility] with Reji after report
--- NOTE | 2023-08-04 20:40 | PC.NURSE ---
pt transferred to [facility]
[2023-08-04] MEDS: AMIODARONE 150 MG/D5W 100 ML 150 MG/100 ML BAG 600 MG IV CONT (21:41)
[2023-08-04] MEDS: AMIODARONE 360 MG/D5W 200 ML 360 MG/200 ML BAG 33.33 MG IV CONT (21:41)
[2023-08-05] VITALS (17 sets, daily range): BP systolic 82–109; BP diastolic 55–72; PULSE 96–114; RESP 18–22; TEMP 36.5–37.1; O2SAT 92–98
[2023-08-05] MEDS: AMIODARONE 360 MG/D5W 200 ML 360 MG/200 ML BAG 16.67 MG IV CONT ×2 (03:37→17:58)
[2023-08-05 05:27] LABS: Hematocrit 45.4 % (42.0-52.0); Hemoglobin 14.4 g/dL (14.0-18.0); Mean Corpuscular HGB Conc 31.7 g/dl (32-36); Mean Corpuscular Hemoglobin 30.8 pg (26-34); Mean Platelet Volume 11.7 fl (7.4-10.4); Platelet Count Result 208 k/mm3 (150-375); Red Blood Count 4.68 M/mm3 (4.6-6.20); Red Cell Distribution Width 13.9 % (11.5-14.5); White Blood Count 8.5 K/mm3 (4.5-10.0)
[2023-08-05 05:46] LABS: Anion Gap 15 mmol/L (8-16); Blood Urea Nitrogen 46 mg/dL (9-20); Calcium 8.2 mg/dL (8.4-10.2); Carbon Dioxide 24 mmol/L (22-30); Chloride 99 mmol/L (98-107); Estimated CRCL calculation 28 ml/min; Estimated Glomerular Filt Rate 26; Glucose 111 mg/dL (65-110); Potassium 4.1 mmol/L (3.4-5.0); Sodium 138 mmol/L (137-145)
[2023-08-05] MEDS: LEVOTHYROXINE SODIUM 100 MCG TABLET PO (06:55)
--- NOTE | 2023-08-05 10:08 | P.CONNP_ITS ---
Assessment and Plan Assessment and plan (1) MOISÉS (acute kidney injury): Code(s): N17.9 - Acute kidney failure, unspecified Status: Acute Assessment and Plan: * multifactorial etiology: * prerenal factors * relative hypotension (sometimes as low as 80s systolic) * ongoing use of ARB (losartan) * IV ibuprofen use * contrast exposure (CT scan on 08/04/23) * concerning that his urine output has declined * furthermore, issues with edema/fluid retention noted * check urine studies, CPK, and renal ultrasound * he remains at risk for VESSEL MANAGER/dialysis * consider holding anticoagulation a bit longer given MOISÉS/ARF * follow repeat labs and UOP (2) Right inguinal hernia: Code(s): K40.90 - Unilateral inguinal hernia, without obstruction or gangrene, not specified as recurrent Status: Chronic Assessment and Plan: * s/p repair with mesh * routine post-operative care * Surgery following (3) Hypotension: Code(s): I95.9 - Hypotension, unspecified Status: Acute Assessment and Plan: * baseline history of hypertension * likely worsened by Afib with RVR, pain medications, and ongoing-use of anti- HTN medications * hold losartan and amlodipine * back off on pain medications as able * allow/aim for systolic BP > 120 if possible to allow for better perfusion to kidneys * follow trend of hemodyamics (4) Atrial fibrillation with rapid ventricular response: Code(s): I48.91 - Unspecified atrial fibrillation Status: Acute Assessment and Plan: * Cardiology consulted * on IV amiodarone * rate control strategy * resume anticoagulation as per Surgery Long extensive discussion (> 20 minutes) with the patient as well as his family at bedside regarding his renal dysfunction as noted by the trend of labs in the last 24-48 hours. His daughter used to be a office runner at a nephrology practice and is well aware of what acute kidney injury/acute renal failure is as well as the issues related to it with regard to volume overload, hyperkalemia, metabolic acidosis...etc. Hopefully, with interventions that have been instituted, his renal function will improve but they are aware of the possibility that he may need renal replacement therapy/dialysis. I will continue follow the patient with you while he remains hospitalized make further recommended pins as needed. Thank you for allowing me to participate in the care of this patient. History of Present Illness Reason for Consult Consult date: 08/05/23 Reason for consult: acute renal failure Chief Complaint Chief complaint: right inguinal hernia History of Present Illness Narrative: The patient is an 83-year-old male with a past medical history as outlined below who was admitted to the hospital last week after undergoing a extensive right inguinal hernia repair with mesh implantation. The patient tolerated the surgical procedure reasonably well although he still has some intermittent abdominal pain following this surgery. Recent laboratory testing this morning showed evidence of acute kidney injury/acute renal failure which prompted Nephrology consultation. From review of the patient's records, he has normal renal function at baseline and this was the case preoperatively as well. His labs yesterday showed a creatinine of 1.3 mg/dL but then labs this morning showed a creatinine of up to 2.4 mg/dL. In spite of the rise in his creatinine, he has no critical electrolyte abnormalities, metabolic acidosis, or evidence of uremia although he does have some issues with fluid retention. He was r
--- NOTE | 2023-08-05 10:08 | PM.CNNEP ---
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/dialysis consider holding anticoagulation a bit longer given MOISÉS/ARF follow repeat labs and UOP (2) Right inguinal hernia: Code(s): K40.90 - Unilateral inguinal hernia, without obstruction or gangrene, not specified as recurrent Status: Chronic Assessment and Plan: s/p repair with mesh routine post-operative care Surgery following (3) Hypotension: Code(s): I95.9 - Hypotension, unspecified Status: Acute Assessment and Plan: baseline history of hypertension likely worsened by Afib with RVR, pain medications, and ongoing-use of anti-HTN medications hold losartan and amlodipine back off on pain medications as able allow/aim for systolic BP > 120 if possible to allow for better perfusion to kidneys follow trend of hemodyamics (4) Atrial fibrillation with rapid ventricular response: Code(s): I48.91 - Unspecified atrial fibrillation Status: Acute Assessment and Plan: Cardiology consulted on IV amiodarone rate control strategy resume anticoagulation as per Surgery Long extensive discussion (> 20 minutes) with the patient as well as his family at bedside regarding his renal dysfunction as noted by the trend of labs in the last 24-48 hours. His daughter used to be a hospital chief executive officer at a nephrology practice and is well aware of what acute kidney injury/acute renal failure is as well as the issues related to it with regard to volume overload, hyperkalemia, metabolic acidosis...etc. Hopefully, with interventions that have been instituted, his renal function will improve but they are aware of the possibility that he may need renal replacement therapy/dialysis. I will continue follow the patient with you while he remains hospitalized make further recommended pins as needed. Thank you for allowing me to participate in the care of this patient. History of Present Illness Reason for Consult Consult date: 08/05/23 Reason for consult: acute renal failure Chief Complaint Chief complaint: right inguinal hernia History of Present Illness Narrative: The patient is an 83-year-old male with a past medical history as outlined below who was admitted to the hospital last week after undergoing a extensive right inguinal hernia repair with mesh implantation. The patient tolerated the surgical procedure reasonably well although he still has some intermittent abdominal pain following this surgery. Recent laboratory testing this morning showed evidence of acute kidney injury/acute renal failure which prompted Nephrology consultation. From review of the patient's records, he has normal renal function at baseline and this was the case preoperatively as well. His labs yesterday showed a creatinine of 1.3 mg/dL but then labs this morning showed a creatinine of up to 2.4 mg/dL. In spite of the rise in his creatinine, he has no critical electrolyte abnormalities, metabolic acidosis, or evidence of uremia although he does have some issues with fluid retention. He was recently initiated on IV amiodarone for his atrial fibrillation yesterday and cardiology consultation is pending regarding recommendations for this issue. His renal dysfunction is likely multifactorial including relative hypotension in the last few days, prerenal factors given his poor oral intake, continued use of antihypertensive medications in the context of relative hypotension,
[2023-08-05] MEDS: ENOXAPARIN 40 MG/0.4 ML SYRINGE SUB-Q (10:38)
[2023-08-05] MEDS: ASPIRIN 81 MG CHEWABLE TABLET 162 MG PO (10:38)
[2023-08-05] MEDS: LORATADINE 10 MG TABLET PO (10:39)
[2023-08-05] MEDS: polyethylene glycoL 3350 17 GM POWD.PACK PO (10:39)
--- NOTE | 2023-08-05 12:01 | PM.CNCAR ---
Assessment and Plan Assessment and plan (1) Atrial fibrillation with rapid ventricular response: Code(s): I48.91 - Unspecified atrial fibrillation Status: Acute Plan This is an 83-year-old man with a history of coronary disease, surgical revascularization several years ago and found to be in atrial fibrillation in January of this year. It was determined that he will be in chronic atrial fib treated with anticoagulation. He does not require any medication for rate control. With abdominal pain over the weekend following surgery he did become more tachycardic and because in that setting he was hypotensive amiodarone was started for rate control. We are not attempting to restore sinus rhythm. His heart rate is well controlled at this time his abdomen is less painful there are no acute cardiac issues that are apparent to me today. We will keep him on intravenous amiodarone until his abdominal pain improves and then anticipate being able to stop that since he did not require any rate control medications prior to admission to the hospital. Moises Pettit MD [facility] History of Present Illness History of Present Illness Consult date/time: 08/05/23 12:01 Reason For Visit: right inguinal hernia Narrative: This is an 83-year-old man I am seeing at the request of the surgeons to assist with the evaluation and management of atrial fibrillation. Patient is known to Dr. Paz of our practice with a history of coronary artery disease and atrial fibrillation. Patient was admitted to this hospital late last week for surgical treatment of a right inguinal hernia which was done with mesh implantation. He according to the chart had an unremarkable course in the operating room but over the weekend was having significant abdominal pain following surgery. The patient has a history of chronic atrial fibrillation which has not required any medication for rate control indicating an element of AV node dysfunction. When he was in a lot of pain yesterday my partner on-call obviously ordered entry intravenous amiodarone to be started which is running at this time. He is in atrial fibrillation currently with a heart rate in the 90s and he does not appear to be in any great distress he still complains of diffuse mid abdominal pain. The surgeon who saw him yesterday on rounds had an abdominal CT done and another abdominal x-ray series today. There are not any notes in the chart from their service for today make on rounds. The patient does not have any cardiac complaints he is denying any chest pain shortness of breath palpitations or any other distress. The patient had coronary bypass surgery performed a several years ago at [facility]. He was in sinus rhythm at that time. It was found in January of this year that he went atrial fibrillation in an asymptomatic fashion with a heart rate in the 50s. Metoprolol was stopped and he has been followed in the office. When that occurred he was started on systemic anticoagulation with Xarelto 20 mg daily. Obviously that has been on hold for his current operation. Review of Systems Constitutional: Constitutional: Reports no additional constitutional complaints Eyes: Eyes: Reports no additional eye complaints ENT: Reports system reviewed and no additional complaints, except as documented Cardiovascular: Cardiovascular: Reports no additional cardiovascular complaints Respiratory: Respiratory: Reports dyspnea on exertion Gastrointestinal: Gastrointestinal: Reports as per HPI and Reports abdominal pain Musculoskeletal: Musculoskeletal: Reports no additional musculoskeletal complaints Integumentary/Breasts: Skin/Breast: Reports system reviewed and no additional complaints, except as docu Neurologic: Reports system reviewed and no additional complaints, except as documented Endocrine: Endocrine: Reports no additional endocrine complaints Hematologic/Lymphatic: Hematologic/Lymphatic: Reports no a
--- NOTE | 2023-08-05 13:39 | PM.PNGS ---
Subjective Subjective Date/Time Seen: 08/05/23 13:39 Post Op day: 3 Patient reports: no flatus, no bowel movement, shortness of breath and afebrile Interval history: Patient's course over the weekend has been reviewed. He developed abdominal distension with CT scan negative for an acute surgical process. He did have some free intraperitoneal air likely due to the surgical procedure and the hernia sac being opened to repair the hernia. He has had no appetite. He gets short of breath with activity and if tries to lay flat. He apparently was taking quite a bit of p.r.n. ibuprofen as it was helping with the postoperative pain. He developed rapid atrial fibrillation 2 nights ago and was started on amiodarone. Rate is better but still in the 100s. Today his creatinine has increased to 2.4. It normally runs less than 1. He is seen now in surgical follow-up. Review of Systems Review of Systems: All systems reviewed & are unremarkable except as noted in HPI and below (HPI) Exam Const: General: comfortable, no acute distress, awake, lethargic and edematous Nutritional Appearance: edematous Orientation/consciousness: No confusion GI: Inspection: Abdominal wall edema and distended GI Palp: Yes Firmness to palpation present (GI), Yes Tenderness to palpation present (GI), No Guarding due to palpation present (GI), No Hernia present, No Palpable mass present and No Rebound tenderness present Extrem: General: edema bilateral (Lower extremities) Objective Data Vital Signs Vital Signs: Vital Signs - 24 hr 08/04/23 15:45 08/04/23 19:40 08/04/23 20:00 Temperature 37.3 C 37.1 C Pulse Rate 115 H 130 H 124 H Respiratory Rate 24 H 18 Blood Pressure 122/78 97/61 L Pulse Oximetry 90 91 94 Oxygen Delivery Nasal Cannula Oxygen Flow Rate 2 08/04/23 21:41 08/04/23 21:41 08/04/23 20:00 Temperature Pulse Rate 130 H 130 H Respiratory Rate Blood Pressure Pulse Oximetry 91 Oxygen Delivery Nasal Cannula Oxygen Flow Rate 3 08/05/23 00:00 08/05/23 00:00 08/04/23 23:46 Temperature 36.4 C Pulse Rate 112 H 64 Respiratory Rate 18 Blood Pressure 90/48 L Pulse Oximetry 92 92 Oxygen Delivery Nasal Cannula Oxygen Flow Rate 3 08/05/23 02:00 08/05/23 03:37 08/05/23 04:00 Temperature 36.6 C Pulse Rate 98 99 114 H Respiratory Rate 22 H Blood Pressure 94/60 L Pulse Oximetry 92 Oxygen Delivery Oxygen Flow Rate 08/05/23 04:00 08/05/23 04:00 08/05/23 07:37 Temperature 36.5 C Pulse Rate 99 105 H Respiratory Rate 20 Blood Pressure 82/56 L Pulse Oximetry 92 96 Oxygen Delivery Nasal Cannula Oxygen Flow Rate 3 08/05/23 11:33 08/05/23 11:40 08/05/23 12:02 Temperature 36.7 C Pulse Rate 107 H Respiratory Rate 20 Blood Pressure 97/55 L Pulse Oximetry 98 98 93 Oxygen Delivery Nasal Cannula Nasal Cannula Oxygen Flow Rate 5 2 Intake/Output Intake/Output: Intake & Output 08/02/23 08/03/23 08/04/23 08/05/23 23:59 23:59 23:59 23:59 Intake Total 550 1440 1700 200 Output Total 3 200 Balance 550 1440 1697 0 Meds/Results Medications: Active Medications Generic Name Dose Route Start Last Admin Trade Name Freq PRN Reason Stop Dose Admin Acetaminophen 500 mg 08/02/23 15:46 08/02/23 18:38 Acetaminophen 500 Mg Tablet PO 500 mg Q6H PRN Administration Mild Pain (1-3) or Fever Hydrocodone Bitart/Acetaminophen 1 tab 08/02/23 15:46 Hydrocodone/Acetaminophen (*Crx) 5-325 Mg Tablet PO Q4H PRN Pain Rated 4-6 Hydrocodone Bitart/Acetaminophen 1 tab 08/02/23 15:46 08/04/23 13:38 Hydrocodone/Acetaminophen (*Crx) 7.5-325 Mg Tablet PO 1 tab Q4H PRN Administration Pain Rated 7-10 Amlodipine Besylate 10 mg 08/03/23 09:00 08/05/23 10:39 Amlodipine Besylate 5 Mg Tablet PO Not Given DAILY [facility] Aspirin 162 mg 08/03/23 09:00 08/05/23 10:38 Aspirin 81 Mg Chewable Tablet PO 162 mg DAILY SUDEEP Admini
[2023-08-05] MEDS: PSYLLIUM POWDER PACKET 1 PACKET PO (17:58)
[2023-08-05] MEDS: SENNA/DOCUSATE SODIUM TABLET 2 TAB PO (21:23)
[2023-08-05 22:19] LABS: Total Protein Urine Random 26 mg/dL; Urea Random Urine 301 MG/DL
[2023-08-05 22:33] LABS: Appearance Urine Cloudy (Clear); Bacteria Urine None Seen /hpf; Bilirubin Urine 1+ (Negative); Color Urine Dark Yellow (Yellow); Glucose Urine UA Negative (Negative); Ketones Urine Trace mg/dL (Negative); Leukocyte Esterase Ur Negative LEU/UL (Negative); Mucus Urine Present /lpf; Need Manual Microscopic Reviewed; Nitrate Urine Negative (Negative); Non Pathogenic Casts >20; Protein Urine 1+ mg/dL (Negative); RBC Urine 0-2 /hpf (0-2); Squamous Epithelial Cell Urine Moderate /hpf (Few)
[2023-08-05 22:34] LABS: Specific Grav Ur 1.036 (1.001-1.035)
[2023-08-05 22:36] LABS: Add Urine Microscopic? YES
[2023-08-05 22:43] LABS: Creatinine Urine 234.3 mg/dL; Total Protein Urine Random 26 mg/dL; Ur Ttl Prot Creatinine Ratio 0.11 mg/mg (0-0.20)
[2023-08-05 22:45] LABS: Sodium Urine Random 24 meq/L
[2023-08-05 22:49] LABS: Eosinophil Urine None Seen % (None Seen); Urine Eos QC 2nd Tech Confirmed
[2023-08-06] VITALS (18 sets, daily range): BP systolic 89–134; BP diastolic 51–82; PULSE 86–117; RESP 18–32; TEMP 36.3–37.9; O2SAT 92–95
--- NOTE | 2023-08-06 | ECHO_ITS ---
Patient Info Name: Omar Ryan Age: 83 years : 1940 Gender: Male Ht: 72 in Wt: 251 lbs BSA: 2.44 m2 HR: 97 bpm BP: 87 / 53 mmHg Heart Rhythm: Atrial Fibrillation Technical Quality: Fair Exam Date: 08/06/2023 3:48 PM Exam Location: Echo Lab Patient Status: Inpatient Admit Date: 08/03/2023 Staff Ordering Physician: Sharri Nicholson MD Supervisor Publications: Kimber Valle RDCS Attending Provider: Jaxon Armijo MD Referring Physician: Lyn HURLEY; Exam Type: CA echo dop color flow w con Study Info Indications - afib, tachycardia Complete two-dimensional, color flow and Doppler transthoracic echocardiogram is performed with contrast to opacify the left ventricle and to improve the deliniation of the left ventricle endocardial borders. Contrast/Agitated Saline Contrast/Ag. Saline: Definity Amount: 2.00 ml Administered By: Kimber Valle RDCS Existing IV Access: Yes IV Access Condition: patent with no signs of infiltration Summary 1. Normal left ventricular size and thickness with good contractility of all segments. Ejection fraction greater than 70%. Grade 2 diastolic dysfunction is present. 2. Left atrial chamber dimension is moderately enlarged. 3. No significant valve disease. 4. Possible right ventricular dysfunction based on low tricuspid annular velocity. 5. Atrial fibrillation. 6. Technically difficult study, definity echo contrast used. Left Ventricle Left ventricular chamber dimension is normal. Left ventricular systolic function is normal, estimated at >70%. There is no increased left ventricular wall thickness. Left ventricular septal wall motion is normal. The left ventricular diastolic function is grade II diastolic dysfunction. Right Ventricle Right ventricular chamber dimension is normal. Right ventricular systolic function is normal. Left Atria Left atrial chamber dimension is moderately enlarged. Right Atria Right atrial chamber dimension is normal. Aortic Valve The aortic valve is trileaflet. There is no aortic valve sclerosis. There is no aortic valve stenosis. There is no aortic valve regurgitation. There is mild aortic valve calcification. Pulmonic Valve The pulmonic valve is normal. There is no pulmonic valve stenosis. There is no pulmonic regurgitation. Mitral Valve The mitral valve has normal leaflets. There is no mitral valve stenosis. There is trace mitral valve regurgitation. Tricuspid Valve The tricuspid valve leaflets are normal. There is no significant tricuspid valve stenosis. There is trace tricuspid valve regurgitation. No pulmonary hypertension, estimated pulmonary arterial systolic pressure is Empty. Pericardium/Pleural The pericardium appears normal. There is no pericardial effusion. Inferior Vena Cava Not well visualized inferior vena cava with >50% collapse upon inspiration consistent with Empty right atrial pressure, Empty. Aorta The aortic root size at the sinus of Valsalva is normal. The prox ascending aorta size is normal. The aorta arch size is not well visualized measuring Empty. The abdominal aorta size is not well visualized. Left Ventricular Outflow Tract Name Value Normal LVOT 2D LVOT Diameter 2.04 cm LVOT Dop
[2023-08-06] MEDS: AMIODARONE 360 MG/D5W 200 ML 360 MG/200 ML BAG 16.67 MG IV CONT ×2 (05:08→17:22)
[2023-08-06 05:36] LABS: Hematocrit 39.5 % (42.0-52.0); Hemoglobin 12.9 g/dL (14.0-18.0); Mean Corpuscular HGB Conc 32.7 g/dl (32-36); Mean Corpuscular Hemoglobin 30.6 pg (26-34); Mean Corpuscular Volume 93.6 fl (80-100); Mean Platelet Volume 11.3 fl (7.4-10.4); Platelet Count Result 216 k/mm3 (150-375); Red Blood Count 4.22 M/mm3 (4.6-6.20); Red Cell Distribution Width 14.1 % (11.5-14.5); White Blood Count 9.3 K/mm3 (4.5-10.0)
[2023-08-06 05:51] LABS: Alanine Aminotransferase 24 U/L (6-50); Albumin Level 3.4 g/dL (3.5-5.1); Alkaline Phosphatase 59 U/L (38-126); Anion Gap 18 mmol/L (8-16); Aspartate Amino Transferase 42 U/L (17-59); Bilirubin,Total 0.7 mg/dL (0.2-1.3); Blood Urea Nitrogen 72 mg/dL (9-20); Calcium 7.9 mg/dL (8.4-10.2); Carbon Dioxide 21 mmol/L (22-30); Chloride 100 mmol/L (98-107); Creatine Kinase 266 U/L (55-170); Estimated CRCL calculation 24 ml/min; Estimated Glomerular Filt Rate 22; Glucose 117 mg/dL (65-110); Magnesium 2.1 mg/dL (1.6-2.3); Phosphorus 7.2 mg/dL (2.5-4.5); Potassium 3.6 mmol/L (3.4-5.0); Sodium 139 mmol/L (137-145)
--- NOTE | 2023-08-06 07:24 | P.HPUP_ITS ---
I do not know why I am asked to sign this history and physical update on 08/06/2023. I did sign a history and physical update prior to surgery on 08/02/2023. I do not see an option to refused to sign so I will go ahead and sign this although I am not sure why I am being asked to. History and Physical Update Update Date/Time: 08/06/23 07:24 History and Physical has been reviewed, including an updated exam of the patient. There are NO changes in the patient's condition. Risks, benefits, and alternatives have been discussed and questions answered. Patient agrees to proceed with procedure.
[2023-08-06 08:17] LABS: Band Neutrophils Percent 32 % (0-6); Burr Cells 2+ (NORMAL); Lymphocytes Absolute Manual 0.65 K/mm3 (1.1-4.5); Metamyelocytes Percent 1 %; Monocytes Absolute Manual 0.93 K/mm3 (0.1-0.90); Monocytes Percent Manual 10 % (3-9); Myelocytes Percent 1 %; Neutrophils Absolute Manual 7.53 K/mm3 (1.3-6.7); Neutrophils Percent Manual 49 % (46-73); Platelet Estimate Adequate (Adequate); Schistocytes Rare (NORMAL); Total Cells Counted 100
[2023-08-06] MEDS: LORATADINE 10 MG TABLET PO (08:53)
[2023-08-06] MEDS: ASPIRIN 81 MG CHEWABLE TABLET 162 MG PO (08:53)
[2023-08-06] MEDS: ENOXAPARIN 40 MG/0.4 ML SYRINGE SUB-Q (08:53)
--- NOTE | 2023-08-06 11:00 | P.PNNP_ITS ---
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 * consider holding anticoagulation a bit longer given MOISÉS/ARF and possible need for further procedures * follow repeat labs and UOP (2) Right inguinal hernia: Code(s): K40.90 - Unilateral inguinal hernia, without obstruction or gangrene, not specified as recurrent Status: Chronic Assessment and Plan: * s/p repair with mesh * routine post-operative care * Surgery following (3) Hypotension: Code(s): I95.9 - Hypotension, unspecified Status: Acute Assessment and Plan: * baseline history of hypertension * likely worsened by Afib with RVR, pain medications, and ongoing-use of anti- HTN medications * hold losartan and amlodipine * back off on pain medications as able * allow/aim for systolic BP > 120 if possible to allow for better perfusion to kidneys * push IVF resuscitation within the limits of respiratory status * element of sepsis? * follow trend of hemodyamics (4) Atrial fibrillation with rapid ventricular response: Code(s): I48.91 - Unspecified atrial fibrillation Status: Acute Assessment and Plan: * Cardiology consulted * on IV amiodarone * rate control strategy * resume anticoagulation as per Surgery Extensive discussion with family (> 20 minutes) regarding the above issues/interventions and likely transfer to ICU for closer monitoring. They appeared to voice understanding. Will continue to follow. Subjective Date/time seen: 08/06/23 11:00 Interval history: Follow-up for acute kidney injury/acute renal failure. Mentation appears to be worse per family at bedside -- more lethargic and requiring more oxygen; nicole catheter in place with ~ 500cc in the bag; worsening creatinine noted as well by AM labs but no critical electrolytes noted; normal WBC but with noted bandemia; systolic BP still relatively soft despite discontinuation of BP medications and limiting pain medications; noted plans by nursing and Dr. Armijo for possible transfer to ICU for closer monitoring. Exam Narrative: General: elderly but WD/WN male in NAD Heart: IRRR, tacycardic, normal S1 and S2; no rub Lungs: clear anteriorly Abdomen: distended with absent bowel sounds Extremities: no cyanosis or clubbing; no edema Skin: warm and dry Objective Data Vital Signs Vital Signs: Vital Signs Temp Pulse Resp BP Pulse Ox O2 Del Method O2 Flow Rate 08/06/23 09:16 93 Nasal Cannula 3 08/06/23 08:00 97.6 F 107 H 32 H 118/71 94 08/06/23 06:00 103 H 08/06/23 05:08 106 H 96/51 L 08/06/23 05:08 106 H 96/51 L 08/06/23 04:00 114 H 18 93 Nasal Cannula 3 08/06/23 04:00 114 H 08/06/23 04:00 98.1 F 90 18 113/66 93
--- NOTE | 2023-08-06 11:00 | PM.PNNEP ---
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/dialysis consider holding anticoagulation a bit longer given MOISÉS/ARF and possible need for further procedures follow repeat labs and UOP (2) Right inguinal hernia: Code(s): K40.90 - Unilateral inguinal hernia, without obstruction or gangrene, not specified as recurrent Status: Chronic Assessment and Plan: s/p repair with mesh routine post-operative care Surgery following (3) Hypotension: Code(s): I95.9 - Hypotension, unspecified Status: Acute Assessment and Plan: baseline history of hypertension likely worsened by Afib with RVR, pain medications, and ongoing-use of anti-HTN medications hold losartan and amlodipine back off on pain medications as able allow/aim for systolic BP > 120 if possible to allow for better perfusion to kidneys push IVF resuscitation within the limits of respiratory status element of sepsis? follow trend of hemodyamics (4) Atrial fibrillation with rapid ventricular response: Code(s): I48.91 - Unspecified atrial fibrillation Status: Acute Assessment and Plan: Cardiology consulted on IV amiodarone rate control strategy resume anticoagulation as per Surgery Extensive discussion with family (> 20 minutes) regarding the above issues/interventions and likely transfer to ICU for closer monitoring. They appeared to voice understanding. Will continue to follow. Subjective Date/time seen: 08/06/23 11:00 Interval history: Follow-up for acute kidney injury/acute renal failure. Mentation appears to be worse per family at bedside -- more lethargic and requiring more oxygen; nicole catheter in place with ~ 500cc in the bag; worsening creatinine noted as well by AM labs but no critical electrolytes noted; normal WBC but with noted bandemia; systolic BP still relatively soft despite discontinuation of BP medications and limiting pain medications; noted plans by nursing and Dr. Armijo for possible transfer to ICU for closer monitoring. Exam Narrative: General: elderly but WD/WN male in NAD Heart: IRRR, tacycardic, normal S1 and S2; no rub Lungs: clear anteriorly Abdomen: distended with absent bowel sounds Extremities: no cyanosis or clubbing; no edema Skin: warm and dry Objective Data Vital Signs Vital Signs: Vital Signs Temp Pulse Resp BP Pulse Ox O2 Del Method O2 Flow Rate 08/06/23 09:16 93 Nasal Cannula 3 08/06/23 08:00 97.6 F 107 H 32 H 118/71 94 08/06/23 06:00 103 H 08/06/23 05:08 106 H 96/51 L 08/06/23 05:08 106 H 96/51 L 08/06/23 04:00 114 H 18 93 Nasal Cannula 3 08/06/23 04:00 114 H 08/06/23 04:00 98.1 F 90 18 113/66 93 08/06/23 02:00 105 H 08/06/23 00:00 117 H 08/06/23 00:00 86 18 92 Nasal Cannula 3 08/06/23 00:00 98.4 F 86 18 95/66 L 92 08/05/23 22:00 109 H 08/05/23 20:00 110 H 08/05/23 20:00 98 18 93 Nasal Cannula 3 08/05/23 20:00 98.8 F 98 18 109/72 93 08/05/23 16:00 93 Nasal Cannula 3 08/05/23 18:00 105 H 08/05/23 16:00 102 H 08/05/23 14:00 102 H 08/05/23 17:58 106 H 08/05/23 16:00 98.2 F 96 18 104/59 L 93 Intake/Output Intake/Output: Intake & Output 08/03/23 08/04/23 08/05/23 08/06/23 23:59 23:59 23:59 23:59 Intake
--- NOTE | 2023-08-06 11:12 | PM.PNCARD ---
Progress Note: A&P Assessment and Plan (1) Hypotension: Code(s): I95.9 - Hypotension, unspecified Status: Acute Assessment and Plan: Patient has been predominantly hypotensive in the last day or so. He is tachypneic and has altered mental status. His white count is normal but he has a left shift and he is in acute renal failure. He is not progressing as expected. I am concerned he may be septic, or have other problems. --check ABGs, lactic acid, proBNP, EKG, troponin, blood cultures --discussed with Dr. Armijo, planning on transfer to ICU. Likely will need to be on a pressor for low BP. (2) Atrial fibrillation with rapid ventricular response: Code(s): I48.91 - Unspecified atrial fibrillation Status: Acute Assessment and Plan: AFib is controlled with IV amiodarone, which we are planning for short-term use as the patient has not needed any rate controlling medications in the past. --consider heparinization in the next few days depending on patient's clinical status and need for invasive procedures. (3) CAD (coronary artery disease): Code(s): I25.10 - Atherosclerotic heart disease of [place] coronary artery without angina pectoris Status: Chronic Assessment and Plan: History of CAD and CABG (2009), no complaints of chest pain. --no clinical evidence STEMI but will check troponin for further evaluation. --May have some volume overload/CHF, but O2 requirements not escalating. --check echo (4) MOISÉS (acute kidney injury): Code(s): N17.9 - Acute kidney failure, unspecified Status: Acute Assessment and Plan: Acute renal failure, Dr. Stein following. Subjective Date/time seen: 08/06/23 11:12 Interval history: Follow-up for AFib RVR. History of persistent AFib which has not required medication for rate control, admitted for right inguinal hernia repair. Developed tachycardia postop associated with hypotension, and has been started on IV amiodarone 08/05/2023. Followed by Dr. Nicholson for his AFib, and CAD history of CABG. Date of service 08/06/2023: Family concerned that pt is not himself, has been lethargic and tachypnec today.. BP 95-118 over 50-70 mmHg. O2 at 2-3 L nasal cannula. Chest x-ray showed possible CHF. Creatinine rising, now up to 2.8 with a BUN of 72. Normal WBC but 32% bands. Getting lactated Ringer's at 50 cc/hour. Made 250 cc of urine so far today, [address] reviewed. Telemetry shows AFib rate 95-105 Review of Systems Review of Systems: Patient denies any chest pain or abdominal pain, does not feel short of breath or nauseated, but tired. Exam Narrative: Ill-appearing elderly male, tachypneic and lethargic but arouses to questions. Worried family at the bedside. HENMT: Mouth: Yes dry mucous membranes Eyes: General: appearance normal, both eyes and all related structures Neck: Neck: no JVD Thyroid: thyroid normal Resp: Effort & Inspection: abnormal respiratory effort Other: Tachypneic, clear anteriorly, decreased breath sounds posteriorly Cardio: Rate: tachycardic Rhythm: abnormal rhythm irregularly irregular Heart sounds: no gallops, Murmur heart sound present (1-2/6 JERRY left upper sternal border) and no rubs Other: Borderline tachycardic, heart rate around 100 GI: Inspection: distended GI Palp: Yes Tenderness to palpation present (GI) Auscultation: bowels sounds not normal Other: Left lower quadrant tenderness, absent bowel sounds Urinary Catheter: Urinary Catheter: patent and draining Neuro: Other: Patient is lethargic but arouses, answers questions. Knew it was the , thought initially it was December but then corrected himself to July. Extrem: General: edema Other: No significant lower extremity edema but the upper extremities appear mildly edematous. Psych: Mental Status: mental status grossly abnormal Objective Data Vital Signs V
--- NOTE | 2023-08-06 11:58 | ECG_ITS ---
Measurements Intervals [place] Rate: 95 P: UT: 0 QRS: 31 QRSD: 109 T: 25 QT: 357 QTc: 450 Interpretive Statements ATRIAL FIBRILLATION ABNORMAL ECG COMPARED TO ECG 08/04/2023 14:03:30 HEART RATE HAS DECREASED Electronically Signed On 08-06-2023 16:29:45 UPHOLSTERER OUTSIDE by Servando Cortez D.O.
--- NOTE | 2023-08-06 12:00 | PC.NURSE ---
Dr. Armijo and Dr. Nicholson to bedside for daily evaluation of patient. Dr. Armijo requesting RN to bedside. Dr. Armijo updated on pt's condition from this AM and how he is now more lethargic. Pt is was drowsy this morning, but was easily arousable. Pt answers questions appropriately at this time, but is slow in answering. Pt hasn't received any pain medications since 08/04/23. This RN gave pt's ASA and Claritin this AM. Pt having difficulty swallowing. Call placed to LINDA Sauer with surgery at 1113 with update on pt's swallowing issues and a request for a bedside swallow evaluation. New order given for bedside swallow eval and to make pt NPO until seen by speech therapist. Dr. Armijo spoke with Dr. Peacock regarding pt's change in condition. New orders for lab work, ABG, 1L LR bolus and CT of brain, chest, abd & pelvis. Pt to be transferred to ICU after CT scans are completed Pt transferred to ICU at 1245. Bedside report given to MANUEL Fuller and family updated.
[2023-08-06 12:11] LABS: Alveolar/Arterial O2 Gradient 108.2 mmHg; Base Excess ABG 0.4 mEq/l (+/-2.0); Fractional Inspired Oxygen 32 %; HCO3 ABG 25.6 mEq/l (22.0-26.0); Oxygen Content ABG 18.6 %vol (16.0-22.0); Oxygen Saturation ABG 93.8 % (95.0-100.0); Oxyhemoglobin 92.4 % THb (90.0-100.0); PCO2 ABG 43.2 mmHg (35.0-45.0); PO2 ABG 69.4 mmHg (80.0-100.0); PO2 FiO2 Ratio Arterial Blood 2.17 %; Total Hemoglobin 14.3 g/dL (12.0-18.0)
[2023-08-06 12:12] LABS: Device NASAL CANNULA; Modified Allen's Test Pass; Site Drawn RIGHT RADIAL
[2023-08-06 12:15] LABS: Lactic Acid Reflex 1.1 mmol/L (0.7-2.0)
[2023-08-06] MEDS: LACTATED RINGERS 1,000 ML 999 ML IV CONT (12:17)
--- NOTE | 2023-08-06 12:27 | WPDCNINT ---
Assessment and Plan Assessment and plan (1) Hypotension: Code(s): I95.9 - Hypotension, unspecified Status: Acute Assessment and Plan: Patient hypotensive this morning which is likely multifactorial secondary to possible sepsis and patient was also on antihypertensive medication. Discontinue antihypertensive medications His lactic acid level is normal at this time.I will give fluid bolus of 2 L and re-evaluate Patient may need vasopressors Echocardiogram is pending (2) MOISÉS (acute kidney injury): Code(s): N17.9 - Acute kidney failure, unspecified Status: Acute Assessment and Plan: Patient developed acute kidney injury postop. The patient did receive contrast on 08/04 which may also have been contributory Nephrology is following patient Losartan discontinued CK level a mildly elevated IV fluids. May need vasopressors Monitor urine output electrolytes and creatinine (3) Atrial fibrillation with rapid ventricular response: Code(s): I48.91 - Unspecified atrial fibrillation Status: Acute Assessment and Plan: Continue amiodarone infusion Not on any anticoagulation at this time Continue aspirin (4) Sepsis: Code(s): A41.9 - Sepsis, unspecified organism Status: Acute Assessment and Plan: Patient appears to be developing sepsis. Possible etiologies of peritonitis since patient has abdominal pain with tenderness. Patient also appears to have consolidation of the lower lobes on the CT done 2 days ago which could be aspiration versus atelectasis Patient is now going down for repeat CT scan of abdomen pelvis and chest Check blood culture procalcitonin level and lactic acid level IV fluid bolus and maintenance IV fluids Empiric meropenem (5) Postoperative ileus: Code(s): K91.89 - Other postprocedural complications and disorders of digestive system; K56.7 - Ileus, unspecified Status: Acute Assessment and Plan: NPO at this time. Will place NG tube if any evidence of nausea vomiting which patient denies at this time (6) Peritonitis (acute) generalized: Code(s): K65.0 - Generalized (acute) peritonitis Status: Acute Assessment and Plan: See above (7) CAD (coronary artery disease): Code(s): I25.10 - Atherosclerotic heart disease of [place] coronary artery without angina pectoris Status: Chronic Assessment and Plan: Continue aspirin (8) Encephalopathy: Code(s): G93.40 - Encephalopathy, unspecified Status: Acute Assessment and Plan: Likely toxic metabolic encephalopathy. Check head CT patient is already going for abdominal CT Check ammonia and TSH level Hold sedatives (9) Aspiration pneumonia: Code(s): J69.0 - Pneumonitis due to inhalation of food and vomit Status: Acute Assessment and Plan: See above Plan DVT prophylaxis Lovenox- Stress ulcer prophylaxis -PPI Nutrition - NPO Code Status - Full Code Case discussed with general surgery and nephrology Total Critical Care Time - 45 minutes Due to a high probability of clinically significant, life threatening deterioration, the patient required my highest level of preparedness to intervene emergently and I personally spent this critical care time directly and personally managing the patient. This critical care time included obtaining a history; examining the patient; pulse oximetry; ordering and review of studies; arranging urgent treatment with development of a management plan; evaluation of patient's response to treatment; frequent reassessment; and discussions with other providers. It was exclusive of separately billable procedures and treating other patients and teaching time. Please see Assessment and Plan section and the rest of the note for further information on patient assessment and treatment Patient Safety Officer Consult Note Consult date: 08/06/23 Reason for consult: Hypotension, sepsis, AFib HPI: Omar Ryan i
[2023-08-06 12:28] LABS: NT Pro B Type Natriuretic Pept 2500 pg/mL (19.9-100); Troponin I < 0.012 ng/mL (0.000-0.034)
--- NOTE | 2023-08-06 12:45 | PC.NURSE ---
This patient, Omar Ryan, was received from [facility] on 08/06/23 at 1245. Patient/family oriented to unit policies and routines
[2023-08-06 12:59] LABS: Procalcitonin 6.9 ng/mL
--- NOTE | 2023-08-06 13:13 | PM.PNGS ---
Progress Note: A&P Assessment and Plan (1) Sepsis: Qualifiers: Sepsis type: sepsis due to unspecified organism Sepsis acute organ dysfunction status: with acute organ dysfunction Severe sepsis acute organ dysfunction type: acute renal failure Acute renal failure type: unspecified Severe sepsis shock status: without septic shock Qualified Code(s): A41.9 - Sepsis, unspecified organism; R65.20 - Severe sepsis without septic shock; N17.9 - Acute kidney failure, unspecified Code(s): A41.9 - Sepsis, unspecified organism Status: Acute Assessment and Plan: Patient has had significant change from yesterday and last night. I spoke with patient's family at length. I also spoke with Cardiology, Nephrology, and collaborative physician, Dr. Peacock. Patient has altered mental status and tachypnea. His abdomen is protuberant and firm with some left lower quadrant tenderness. He has a marked left shift on his white blood cell count differential. His CT scan shows approximately the same amount of fluid in the pelvis as there was 2 days ago, suggesting there is not ongoing leakage of enteric content. Peritoneal thickening can be suggestive of abscess. I have ordered for patient to have CT-guided drainage of the pelvic fluid collection with placement of a pigtail catheter. He also has a very distended gallbladder which is more distended today than it was on the . While he does not appear to have tenderness in the right upper quadrant, will go ahead and have image guided cholecystostomy tube placed as that could also be a source of sepsis. Patient has been transferred to the intensive care unit. He has become critically ill as noted. (2) Encephalopathy: Code(s): G93.40 - Encephalopathy, unspecified Status: Acute Assessment and Plan: Mental status changes likely due to encephalopathy. Patient very tachypnea and if worsens may need noninvasive or invasive mechanical ventilation. Underlying cause most likely sepsis. Patient has been transferred to the intensive care unit. (3) Paroxysmal atrial fibrillation: Code(s): I48.0 - Paroxysmal atrial fibrillation Status: Chronic Assessment and Plan: Rate controlled at low 100s. On amiodarone. Hold off on anticoagulation with Xarelto as per Nephrology request. (4) Right inguinal hernia: Code(s): K40.90 - Unilateral inguinal hernia, without obstruction or gangrene, not specified as recurrent Status: Chronic Assessment and Plan: Patient underwent repair on 08/02/2023. Procedure went uneventfully although it was a very large hernia with at least 2/3 of the small intestine eviscerated into the scrotum. Free air in the abdomen on CT is not surprising as there was a large hole in the inguinal canal and the hernia sac was opened. All of the chronically viscera rated small bowel had to be mechanically reduced into the abdominal cavity. Hernia was repaired with mesh. No sign of postoperative bleeding or hematoma. Subjective Subjective Date/Time Seen: 08/06/23 13:13 Post Op day: 4 Patient reports: no bowel movement, shortness of breath (Patient is somnolent but on 3 L oxygen nasal cannula, respiratory rate about 30 per minute) and afebrile Interval history: Patient very somnolent. Apparently would arouse briefly and answer some questions with a nod or brief verbalization. Has been in this status of decreased mental status since shift change this morning. Has not verbalized any complaints of pain, particularly abdominal pain. No bowel movement. Having trouble even swallowing the Metamucil and mineral oil. Currently he has been made NPO. Review of Systems Review of Systems: ROS unobtainable: Yes unobtainable due to mental status Exam Const: General: patient obtunded and edematous Nutritional Appearance: edematous Orientation/consciousness: patient obtunded Limitations: altered mental status Chest: Chest palpation & inspection: other
--- NOTE | 2023-08-06 13:15 | PM.EVENT ---
Event Note Event Note Event Note: CT scan results review Dr. Sanchez from Radiology and General surgery. Plan to place a drain in fluid collection in abdomen which is suspected to be an abscess and distended gallbladder which could be acalculous cholecystitis. Blood pressure improved with fluid bolus of 1 L. will hold additional IV fluid bolus at this time. Monitor
--- NOTE | 2023-08-06 13:21 | PCSTNOTE ---
A Bedside Swallow Evaluation was requested secondary to patient condition however due to current health status and transfer to ICU, current order is discontinued. Nursing was notified to request new order when patient is better able to participate.
[2023-08-06 13:23] LABS: Ammonia 10 umol/L (9-30)
[2023-08-06 13:51] LABS: INR 1.3; Prothrombin Time 16.9 Seconds (11.1-14.7)
[2023-08-06 13:52] LABS: Partial Thromboplastin Time 37.6 SECONDS (22.3-36.8)
[2023-08-06] MEDS: MEROPENEM 500 MG in SODIUM CHLORIDE 0.9% IV 100 ML 200 ML IVPB (14:07)
[2023-08-06 14:16] LABS: Appearance Urine Cloudy (Clear); Bacteria Urine None Seen /hpf; Bilirubin Urine Negative (Negative); Blood Urine 2+ (Negative); Color Urine Yellow (Yellow); Glucose Urine UA Negative (Negative); Hyaline Casts Urine Present /lpf; Ketones Urine Negative (Negative); Leukocyte Esterase Ur Negative LEU/UL (NEGATIVE); Need Manual Microscopic Reviewed; Nitrate Urine Negative (Negative); Protein Urine 1+ mg/dL (Negative); RBC Urine 0-2 /hpf (0-2); Specific Grav Ur 1.021 (1.001-1.035); Squamous Epithelial Cell Urine Few /hpf (Few)
[2023-08-06 14:18] LABS: Add Urine Microscopic? YES
[2023-08-06] MEDS: PERFLUTREN LIPID MICROSPHERES 1.5 ML VIAL DILUTED TO 10 ML TOTAL VOLUME IV PUSH (14:18)
[2023-08-06 14:35] LABS: Free T4 Free Thyroxine Reflex 0.64 ng/dL (0.78-2.19)
--- NOTE | 2023-08-06 17:05 | IVDEFINITY ---
Prior to administration of IV Definity the patient was educated on the risks and benefits of the imaging enhancing agent including potential adverse side effects. The patient verbalized understanding. Allergies were verified. No exclusion criteria were identified and at least one of the following inclusion criteria were met: 1) physician request, 2) patient technically difficult to image (per the [place] [employer] guidelines of two or more segments not discernable within the apical view), or 3) questionable left ventricular function. ?
[2023-08-06] MEDS: LEVOTHYROXINE SODIUM INJ 100 MCG/5 ML VIAL 50 MCG IV PUSH (17:22)
[2023-08-06] MEDS: ACETAMINOPHEN 500 MG TABLET PO (18:25)
[2023-08-07] VITALS (16 sets, daily range): BP systolic 110–136; BP diastolic 67–83; PULSE 76–94; RESP 24–33; TEMP 37.2–37.7; O2SAT 93–97
[2023-08-07] MEDS: AMIODARONE 360 MG/D5W 200 ML 360 MG/200 ML BAG 16.67 MG IV CONT ×2 (04:12→14:42)
[2023-08-07] MEDS: MEROPENEM 500 MG in SODIUM CHLORIDE 0.9% IV 100 ML 200 ML IVPB (04:13)
[2023-08-07] MEDS: MORPHINE SULFATE (*CRX) 2 MG/ML INJ IV PUSH (04:27)
[2023-08-07 04:44] LABS: Hematocrit 42.3 % (42.0-52.0); Hemoglobin 13.4 g/dL (14.0-18.0); Mean Corpuscular HGB Conc 31.7 g/dl (32-36); Mean Corpuscular Hemoglobin 30.3 pg (26-34); Mean Corpuscular Volume 95.7 fl (80-100); Mean Platelet Volume 11.2 fl (7.4-10.4); Platelet Count Result 195 k/mm3 (150-375); Red Blood Count 4.42 M/mm3 (4.6-6.20); Red Cell Distribution Width 14.6 % (11.5-14.5); White Blood Count 11.4 K/mm3 (4.5-10.0)
[2023-08-07 05:09] LABS: Alanine Aminotransferase 22 U/L (6-50); Albumin Level 3.1 g/dL (3.5-5.1); Alkaline Phosphatase 70 U/L (38-126); Anion Gap 11 mmol/L (8-16); Aspartate Amino Transferase 36 U/L (17-59); Bilirubin,Total 0.9 mg/dL (0.2-1.3); Blood Urea Nitrogen 64 mg/dL (9-20); Carbon Dioxide 25 mmol/L (22-30); Chloride 104 mmol/L (98-107); Estimated CRCL calculation 36 ml/min; Estimated Glomerular Filt Rate 36; Glucose 101 mg/dL (65-110); Magnesium 2.7 mg/dL (1.6-2.3); Phosphorus 4.1 mg/dL (2.5-4.5); Potassium 3.8 mmol/L (3.4-5.0); Sodium 140 mmol/L (137-145)
[2023-08-07 05:16] LABS: Band Neutrophils Percent 17 % (0-6); Burr Cells 2+ (NORMAL); Eosinophils Absolute Manual 0.11 K/mm3 (0.02-0.5); Eosinophils Percent Manual 1 % (0-4); Lymphocytes Absolute Manual 0.79 K/mm3 (1.1-4.5); Metamyelocytes Percent 2 %; Monocytes Absolute Manual 0.68 K/mm3 (0.1-0.90); Monocytes Percent Manual 6 % (3-9); Neutrophils Absolute Manual 9.23 K/mm3 (1.3-6.7); Neutrophils Percent Manual 64 % (46-73); Platelet Estimate Adequate (Adequate); Promyelocytes Percent 3 %; Schistocytes None Seen (NORMAL); Total Cells Counted 100
[2023-08-07 05:17] LABS: Atypical Lymphocytes Present; Poikilocytosis 1+ (NORMAL)
[2023-08-07] MEDS: ASPIRIN 81 MG CHEWABLE TABLET 162 MG PO (08:12)
[2023-08-07] MEDS: PANTOPRAZOLE SODIUM IV 40 MG VIAL IV PUSH (08:12)
[2023-08-07] MEDS: ENOXAPARIN 40 MG/0.4 ML SYRINGE SUB-Q (08:29)
[2023-08-07] MEDS: KCL 20 MEQ/D5/0.45% SOD CHL 1,000 ML 75 ML IV CONT ×2 (08:30→21:01)
--- NOTE | 2023-08-07 09:09 | PM.PNGS ---
Progress Note: A&P Assessment and Plan (1) Sepsis: Qualifiers: Sepsis type: sepsis due to unspecified organism Sepsis acute organ dysfunction status: with acute organ dysfunction Severe sepsis acute organ dysfunction type: acute renal failure Acute renal failure type: unspecified Severe sepsis shock status: without septic shock Qualified Code(s): A41.9 - Sepsis, unspecified organism; R65.20 - Severe sepsis without septic shock; N17.9 - Acute kidney failure, unspecified Code(s): A41.9 - Sepsis, unspecified organism Status: Acute Assessment and Plan: Greatly improved. Differential not yet back on CBC. Patient did not have to be put on pressors nor did he have to be intubated last night. He looked to be heading for both of these yesterday. His mental status went back to normal right after his drains were placed in Radiology. Creatinine has decreased from 2.8-1.8 and has good urine output. Greatly improved. Discussed with Dr. Peacock. Possibly transferred IMU today. (2) Pelvic abscess in male: Code(s): K65.1 - Peritoneal abscess Status: Acute Assessment and Plan: Drained percutaneously with CT guidance yesterday, cultures pending. Much improved. 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 This must be a very small injury as patient had almost no additional fluid in his pelvis based on CT scan [address] scan 08 06. Since he is significantly improved, I suspect this will be a low output enterocutaneous fistula. Will try to treat it conservatively. Discussed with Dr. Peacock. (4) MOISÉS (acute kidney injury): Code(s): N17.9 - Acute kidney failure, unspecified Status: Acute Assessment and Plan: Improved. (5) Right inguinal hernia: Code(s): K40.90 - Unilateral inguinal hernia, without obstruction or gangrene, not specified as recurrent Status: Chronic Assessment and Plan: Repaired 08/02/2023 Subjective Subjective Date/Time Seen: 08/07/23 09:09 Post Op day: 5 Patient reports: feels better, pain is less, no bowel movement and afebrile (Maximum temperature 37.9?) Interval history: Patient awake and convert sent this morning. Apparently was able to verbalize and more awake almost immediately after his gallbladder and pelvic did percutaneous drains were placed. Has no real complaints this morning. Review of Systems Review of Systems: All systems reviewed & are unremarkable except as noted in HPI and below (HPI) Exam Const: General: cooperative, comfortable, awake and well nourished Orientation/consciousness: No confusion GI: Inspection: Abdominal wall edema, distended, incision (Healing well) and other (Light greenish fluid per pigtail catheter drain, bile from gallbladder) GI Palp: Yes Firmness to palpation present (GI), Yes Tenderness to palpation present (GI), No Hernia present and No Palpable mass present Auscultation: absent bowel sounds : Penis: Yes edematous Scrotum: no ecchymosis, edematous and not erythematous Neuro: General: oriented to person, oriented to place, moves all extremities and CN's II-XI intact bilaterally Speech: normal speech Gait exam (Neuro): Unable to assess gait Extrem: General: other (All extremities edematous) Psych: Appearance: grossly normal Mental Status: mental status grossly normal Affect: normal affect Attitude: cooperative Objective Data Vital Signs Vital Signs: Vital Signs - 24 hr 08/06/23 09:16 08/06/23 12:00 08/06/23 12:00 Temperature 36.3 C L Pulse Rate 97 Respiratory Rate 28 H Blood Pressure 89/53 L Pulse Oximetry 93 95 95 Oxygen Delivery Nasal Cannula Nasal Cannula Oxygen Flow Rate 3 3 08/06/23 10:00 08/06/23 12:00 08/06/23 14:00 Temperature Pulse Rate 102 H 1
--- NOTE | 2023-08-07 09:46 | WPDINTPN ---
Progress Note: A&P Assessment and Plan (1) Sepsis: Qualifiers: Sepsis type: sepsis due to unspecified organism Sepsis acute organ dysfunction status: with acute organ dysfunction Severe sepsis acute organ dysfunction type: acute renal failure Acute renal failure type: unspecified Severe sepsis shock status: without septic shock Qualified Code(s): A41.9 - Sepsis, unspecified organism; R65.20 - Severe sepsis without septic shock; N17.9 - Acute kidney failure, unspecified Code(s): A41.9 - Sepsis, unspecified organism Status: Acute Assessment and Plan: Secondary to peritonitis. Patient also appears to have consolidation of the lower lobes on the CT done which could be aspiration versus atelectasis Repeat CT scan of abdomen and pelvis done on 08/06 showed gallbladder distention and also fluid collection likely exudative 08/06 patient underwent cholecystostomy and drainage of peritoneal abscess-cultures have been sent Patient drained 350 mL of purulent fluid from left lower quadrant drain and 450 mL of bilious liquid from gallbladder drain Surgery suspect small perforation from colon to be the cause that led to pelvic abscess. Discussed with general surgery and plan is to continue with drainage of abscess and antibiotics at this time with possible repeat exploratory laparotomy in near future depending on how patient does. Case discussed with Dr. 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 Bedside swallow eval done. General surgery has recommended the patient be started on ice chips and occasional popsicle at this time and no further advancement of diet Patient does appear to have bowel sounds on today's exam (6) Aspiration pneumonia: Code(s): J69.0 - Pneumonitis due to inhalation of food and vomit Status: Acute Assessment and Plan: See above (7) Hypotension: Code(s): I95.9 - Hypotension, unspecified Status: Acute Assessment and Plan: Patient hypotensive this morning which is likely multifactorial secondary to possible sepsis and patient was also on antihypertensive medication. Discontinue antihypertensive medications His lactic acid level is normal at this time.I patient was given 1 L fluid bolus and 1 L of fluid infusion Patient blood pressure has improved and he has not required any vasopressors Echocardiogram showed 70% EF with grade 2 diastolic dysfunction and possible right ventricular dysfunction (8) MOISÉS (acute kidney injury): Code(s): N17.9 - Acute kidney failure, unspecified Status: Acute Assessment and Plan: Patient developed acute kidney injury postop. The patient did receive contrast on 08/04 which may also have been contributory Nephrology is following patient Losartan discontinued CK level a mildly elevated Cautious IV fluids will be continued as patient is not taking any p.o. diet. Creatinine improved 1.8 Monitor urine output electrolytes and creatinine (9) Atrial fibrillation with rapid ventricular response: Code(s): I48.91 - Unspecified atrial
--- NOTE | 2023-08-07 09:55 | PCSTNOTE ---
Please refer to the Bedside Swallow Evaluation in the EMR. Please note, silent aspiration cannot be ruled out at bedside.
[2023-08-07] MEDS: ACETAMINOPHEN 500 MG TABLET PO ×2 (12:02→17:13)
--- NOTE | 2023-08-07 12:15 | PM.PNCARD ---
Progress Note: A&P Assessment and Plan (1) Hypotension: Code(s): I95.9 - Hypotension, unspecified Status: Acute Assessment and Plan: Hypotension and sepsis, patient much improved after hydration, abscess drainage and antibiotics. (2) Atrial fibrillation with rapid ventricular response: Code(s): I48.91 - Unspecified atrial fibrillation Status: Acute Assessment and Plan: AFib is controlled with IV amiodarone, which we are planning for short-term use as the patient has not needed any rate controlling medications in the past. --Spoke w/ Dr. Jj and LANG Kuo to start heparin to prevent cardioembolic events (3) CAD (coronary artery disease): Code(s): I25.10 - Atherosclerotic heart disease of [place] coronary artery without angina pectoris Status: Chronic Assessment and Plan: History of CAD and CABG (2009), no complaints of chest pain. Troponins remain normal. Stable. --Cont ASA --I believe pt has declined statin tx in the past (4) Pelvic abscess in male: Code(s): K65.1 - Peritoneal abscess Status: Acute Assessment and Plan: Abcess w/ peritonitis, much improved after drainage and antibiotics. (5) MOISÉS (acute kidney injury): Code(s): N17.9 - Acute kidney failure, unspecified Status: Acute Assessment and Plan: Acute renal failure, Dr. Stein following. Improving w/ hydration, good urine output. Subjective Date/time seen: 08/07/23 12:15 Interval history: Follow-up for AFib RVR. History of persistent AFib which has not required medication for rate control, admitted for right inguinal hernia repair. Developed tachycardia postop associated with hypotension, and has been started on IV amiodarone 08/05/2023. Followed by Dr. Nicholson for his AFib, and CAD history of CABG. Date of service 08/06/2023: Family concerned that pt is not himself, has been lethargic and tachypnec today.. BP 95-118 over 50-70 mmHg. O2 at 2-3 L nasal cannula. Chest x-ray showed possible CHF. Creatinine rising, now up to 2.8 with a BUN of 72. Normal WBC but 32% bands. Getting lactated Ringer's at 50 cc/hour. Made 250 cc of urine so far today, 200 total yesterday. TRansferred to ICU. Date of service 08/07/2023: Blood pressure improved after a L of IV fluids. Low grade temp. There was concern for acalculous cholecystitis and the patient had a drain placed in the gallbladder,and another drain was placed in a fluid collection/suspected abscess in the left lower quadrant. Being treated for peritonitis. Mental status better this morning. Urine output is good and creatinine has declined to 1.6. Trops neg and Echo EF 70%. Telemetry: AFib rate in the 90s. EKG 10/06/2022 at 11:58 a.m.: AFib rate 95, no ischemic changes, personally reviewed. Review of Systems Review of Systems: No chest pain or shortness of breath. Tolerating ice chips. No nausea. Still some left lower quadrant pain. No fevers or chills. Exam Narrative: Elderly male awake and alert in ICU NAD HENMT: Mouth: Yes dry mucous membranes Eyes: General: appearance normal, both eyes and all related structures Neck: Neck: no JVD Thyroid: thyroid normal Resp: Effort & Inspection: normal respiratory effort Other: clear anaterolaterally Cardio: Rate: regular rate and tachycardic Rhythm: abnormal rhythm irregularly irregular Heart sounds: no gallops, Murmur heart sound present (1-2/6 JERRY left upper sternal border) and no rubs GI: Inspection: distended Auscultation: bowels sounds not normal Other: Left lower quadrant tenderness, diminished bowel sounds, draining purulent fluid LLQ Urinary Catheter: Urinary Catheter: patent and draining Skin: General skin exam: normal color and no rashes or lesions noted Neuro: Speech: normal speech Other: Alert and oriented, recognises me. Extrem: General: edema Other: No significant lower extremity
--- NOTE | 2023-08-07 12:36 | P.PNNP_ITS ---
Progress Note: A&P Assessment and Plan (1) MOISÉS (acute kidney injury): Code(s): N17.9 - Acute kidney failure, unspecified Status: Acute Assessment and Plan: * improvement noted * multifactorial etiology: * prerenal factors * relative hypotension (sometimes as low as 80s systolic) * ongoing use of ARB (losartan) * IV ibuprofen use * contrast exposure (CT scan on 08/04/23) * infection/sepsis * evaluation to date: * renal ultrasound okay * urine electrolytes prerenal * urine eosinophils negative * CPK mildly elevated (but not likely to affect kidney function) * follow repeat labs and UOP (2) Sepsis: Qualifiers: Sepsis type: sepsis due to unspecified organism Sepsis acute organ dysfunction status: with acute organ dysfunction Severe sepsis acute organ dysfunction type: acute renal failure Acute renal failure type: unspecified Severe sepsis shock status: without septic shock Qualified Code(s): A41.9 - Sepsis, unspecified organism; R65.20 - Severe sepsis without septic shock; N17.9 - Acute kidney failure, unspecified Code(s): A41.9 - Sepsis, unspecified organism Status: Acute Assessment and Plan: * thought to be secondary to peritonitis from gallbladder distension + peritoneal abscess * s/p cholecystomy tube + drainage/drain placement of peritoneal abscess * on antibiotics * possible repeat exploratory laparotomy depending on clinical course * follow culture data (3) Pelvic abscess in male: Code(s): K65.1 - Peritoneal abscess Status: Acute Assessment and Plan: * see #2 (4) Peritonitis (acute) generalized: Code(s): K65.0 - Generalized (acute) peritonitis Status: Acute Assessment and Plan: * see #2 (5) Right inguinal hernia: Code(s): K40.90 - Unilateral inguinal hernia, without obstruction or gangrene, not specified as recurrent Status: Chronic Assessment and Plan: * s/p repair with mesh * routine post-operative care * Surgery following (6) Atrial fibrillation with rapid ventricular response: Code(s): I48.91 - Unspecified atrial fibrillation Status: Acute Assessment and Plan: * Cardiology following * on IV amiodarone * rate control strategy Will continue to follow. Subjective Date/time seen: 08/07/23 12:36 Interval history: Follow-up for acute kidney injury/acute renal failure. Significan clinical improvement in the last 24 hours -- better hemodynamics after more aggressive IVF resuscitation; mentation seems back to baseline as well; imaging yesterday concerning for acalculous cholecystitis as well as abdominal abscess; s/p cholecystomy tube placement and drainage/catheter placem ent in peritoneal abscess with tolerance to both procedures; renal function has improved with good urine output. Exam Narrative: General: elderly but WD/WN male in NAD Heart: IRRR, normal S1 and S2; no rub Lungs: clear anteriorly Abdomen: distended with decreased bowel sounds; abdominal drains noted Extremities: no cyanosis or clubbing; no edema Skin: warm and intct Objective Data Vital Signs Vital Signs: Vital Signs Temp Pulse Resp BP Pulse Ox O2 Del Method O2 Flow Rate 08/07/23 12:06 85 08/07/23 12:00 99.4 F 90 28 H 136/83 95 08/07/23 10:00 89 08/07/23 08:05
--- NOTE | 2023-08-07 12:36 | PM.PNNEP ---
Progress Note: A&P Assessment and Plan (1) MOISÉS (acute kidney injury): Code(s): N17.9 - Acute kidney failure, unspecified Status: Acute Assessment and Plan: improvement noted multifactorial etiology: prerenal factors relative hypotension (sometimes as low as 80s systolic) ongoing use of ARB (losartan) IV ibuprofen use contrast exposure (CT scan on 08/04/23) infection/sepsis evaluation to date: renal ultrasound okay urine electrolytes prerenal urine eosinophils negative CPK mildly elevated (but not likely to affect kidney function) follow repeat labs and UOP (2) Sepsis: Qualifiers: Sepsis type: sepsis due to unspecified organism Sepsis acute organ dysfunction status: with acute organ dysfunction Severe sepsis acute organ dysfunction type: acute renal failure Acute renal failure type: unspecified Severe sepsis shock status: without septic shock Qualified Code(s): A41.9 - Sepsis, unspecified organism; R65.20 - Severe sepsis without septic shock; N17.9 - Acute kidney failure, unspecified Code(s): A41.9 - Sepsis, unspecified organism Status: Acute Assessment and Plan: thought to be secondary to peritonitis from gallbladder distension + peritoneal abscess s/p cholecystomy tube + drainage/drain placement of peritoneal abscess on antibiotics possible repeat exploratory laparotomy depending on clinical course follow culture data (3) Pelvic abscess in male: Code(s): K65.1 - Peritoneal abscess Status: Acute Assessment and Plan: see #2 (4) Peritonitis (acute) generalized: Code(s): K65.0 - Generalized (acute) peritonitis Status: Acute Assessment and Plan: see #2 (5) Right inguinal hernia: Code(s): K40.90 - Unilateral inguinal hernia, without obstruction or gangrene, not specified as recurrent Status: Chronic Assessment and Plan: s/p repair with mesh routine post-operative care Surgery following (6) Atrial fibrillation with rapid ventricular response: Code(s): I48.91 - Unspecified atrial fibrillation Status: Acute Assessment and Plan: Cardiology following on IV amiodarone rate control strategy Will continue to follow. Subjective Date/time seen: 08/07/23 12:36 Interval history: Follow-up for acute kidney injury/acute renal failure. Significan clinical improvement in the last 24 hours -- better hemodynamics after more aggressive IVF resuscitation; mentation seems back to baseline as well; imaging yesterday concerning for acalculous cholecystitis as well as abdominal abscess; s/p cholecystomy tube placement and drainage/catheter placement in peritoneal abscess with tolerance to both procedures; renal function has improved with good urine output. Exam Narrative: General: elderly but WD/WN male in NAD Heart: IRRR, normal S1 and S2; no rub Lungs: clear anteriorly Abdomen: distended with decreased bowel sounds; abdominal drains noted Extremities: no cyanosis or clubbing; no edema Skin: warm and intct Objective Data Vital Signs Vital Signs: Vital Signs Temp Pulse Resp BP Pulse Ox O2 Del Method O2 Flow Rate 08/07/23 12:06 85 08/07/23 12:00 99.4 F 90 28 H 136/83 95 08/07/23 10:00 89 08/07/23 08:05 89 26 H 93 Nasal Cannula 3 08/07/23 08:05 89 08/07/23 10:00 99.3 F 92 25 H 133/76 96 08/07/23 08:00 99.2 F 85 27 H 133/78 94 08/07/23 06:00 99.4 F 91 28 H 128/70 95 08/07/23 06:00 91 08/07/23 04:00 93 Nasal Cannula 3 08/07/23 04:00 99.7 F H 94 31 H 130/82 93 08/07/23 04:00 94 08/07/23 04:12 91 130/82 08/07/23 02:00 99.8 F H 88 30 H 121/76 95 08/07/23 02:00 88 08/07/23 00:00 99.9 F H 90 28 H 116/70 94 08/07/23 00:00 90 08/06/23 23:20 94 Nasal Cannula 3 08/06/23 21:59 99.9 F H 86 27 H 1
[2023-08-07] MEDS: MEROPENEM 1 GM/NS 100 ML 1 GM/100 ML BAG IVPB (14:38)
[2023-08-07 16:27] LABS: Anion Gap 9 mmol/L (8-16); Blood Urea Nitrogen 51 mg/dL (9-20); Calcium 8.1 mg/dL (8.4-10.2); Carbon Dioxide 27 mmol/L (22-30); Chloride 105 mmol/L (98-107); Estimated CRCL calculation 49 ml/min; Estimated Glomerular Filt Rate 53; Glucose 130 mg/dL (65-110); Potassium 3.5 mmol/L (3.4-5.0); Sodium 141 mmol/L (137-145)
[2023-08-07] MEDS: HEPARIN SOD/D5W 100 UNITS/ML 25,000 UNITS/250 ML BAG 15 UNITS IV CONT (21:00)
[2023-08-08] VITALS (16 sets, daily range): BP systolic 126–151; BP diastolic 67–109; PULSE 77–96; RESP 22–32; TEMP 37.1–37.7; O2SAT 92–96; BMI 32.3
[2023-08-08] MEDS: AMIODARONE 360 MG/D5W 200 ML 360 MG/200 ML BAG 16.67 MG IV CONT ×2 (03:10→14:29)
[2023-08-08] MEDS: MEROPENEM 1 GM/NS 100 ML 1 GM/100 ML BAG IVPB ×3 (03:12→21:57)
[2023-08-08 03:35] LABS: Basophils Percent Auto 0.1 % (0.2-1.2); Eosinophils Absolute Auto 0.6 K/mm3 (0-0.3); Eosinophils Percent Auto 4.4 % (0-4.4); Hematocrit 40.2 % (42.0-52.0); Hemoglobin 12.8 g/dL (14.0-18.0); Immature Granulocyte Absolute 1.12 K/mm3 (0.00-0.031); Immature Granulocyte Percent A 8.3 % (0-0.5); Lymphocytes Percent Auto 6.7 % (18.3-44.2); Mean Corpuscular HGB Conc 31.8 g/dl (32-36); Mean Corpuscular Hemoglobin 30.6 pg (26-34); Mean Corpuscular Volume 96.2 fl (80-100); Mean Platelet Volume 11.1 fl (7.4-10.4); Monocytes Absolute Auto 0.8 K/mm3 (0.1-0.6); Monocytes Percent Auto 5.9 % (2.6-8.5); Neutrophils Absolute Auto 10.1 K/mm3 (1.3-6.7); Neutrophils Percent Auto 74.6 % (45.5-73.1); Platelet Count Result 214 k/mm3 (150-375); Red Blood Count 4.18 M/mm3 (4.6-6.20); Red Cell Distribution Width 14.7 % (11.5-14.5); White Blood Count 13.5 K/mm3 (4.5-10.0)
[2023-08-08 03:50] LABS: Partial Thromboplastin Time 47.7 SECONDS (22.3-36.8)
[2023-08-08 03:59] LABS: Alanine Aminotransferase 20 U/L (6-50); Albumin Level 2.9 g/dL (3.5-5.1); Alkaline Phosphatase 76 U/L (38-126); Anion Gap 8 mmol/L (8-16); Aspartate Amino Transferase 30 U/L (17-59); Bilirubin,Total 0.9 mg/dL (0.2-1.3); Blood Urea Nitrogen 38 mg/dL (9-20); Calcium 7.9 mg/dL (8.4-10.2); Carbon Dioxide 27 mmol/L (22-30); Chloride 106 mmol/L (98-107); Estimated CRCL calculation 63 ml/min; Estimated Glomerular Filt Rate > 60; Glucose 145 mg/dL (65-110); Magnesium 2.8 mg/dL (1.6-2.3); Phosphorus 1.7 mg/dL (2.5-4.5); Potassium 3.6 mmol/L (3.4-5.0); Sodium 141 mmol/L (137-145)
[2023-08-08] MEDS: HEPARIN SODIUM 5,000 UNITS/ML VIAL 7000 UNITS IV PUSH (04:23)
[2023-08-08 04:47] LABS: Platelet Estimate Adequate (Adequate)
[2023-08-08 04:49] LABS: Burr Cells 3+ (NORMAL); Schistocytes None Seen (NORMAL)
[2023-08-08] MEDS: LEVOTHYROXINE SODIUM INJ 100 MCG/5 ML VIAL 50 MCG IV PUSH (04:56)
[2023-08-08 09:03] LABS: Alanine Aminotransferase 20 U/L (6-50); Alkaline Phosphatase 78 U/L (38-126); Anion Gap 8 mmol/L (8-16); Aspartate Amino Transferase 31 U/L (17-59); Bilirubin,Total 0.9 mg/dL (0.2-1.3); Blood Urea Nitrogen 35 mg/dL (9-20); Calcium 7.8 mg/dL (8.4-10.2); Carbon Dioxide 27 mmol/L (22-30); Chloride 106 mmol/L (98-107); Estimated CRCL calculation 69 ml/min; Estimated Glomerular Filt Rate > 60; Glucose 180 mg/dL (65-110); Magnesium 2.6 mg/dL (1.6-2.3); Potassium 3.7 mmol/L (3.4-5.0); Sodium 141 mmol/L (137-145)
[2023-08-08 09:04] LABS: Hematocrit 42.2 % (42.0-52.0); Hemoglobin 13.2 g/dL (14.0-18.0); Mean Corpuscular HGB Conc 31.3 g/dl (32-36); Mean Corpuscular Hemoglobin 30.2 pg (26-34); Mean Corpuscular Volume 96.6 fl (80-100); Mean Platelet Volume 11.4 fl (7.4-10.4); Platelet Count Result 218 k/mm3 (150-375); Red Blood Count 4.37 M/mm3 (4.6-6.20); Red Cell Distribution Width 14.8 % (11.5-14.5); White Blood Count 14.7 K/mm3 (4.5-10.0)
[2023-08-08 09:10] LABS: Transferrin 109 mg/dL (206-381)
--- NOTE | 2023-08-08 09:22 | WPDINTPN ---
Progress Note: A&P Assessment and Plan (1) Sepsis: Qualifiers: Sepsis type: sepsis due to unspecified organism Sepsis acute organ dysfunction status: with acute organ dysfunction Severe sepsis acute organ dysfunction type: acute renal failure Acute renal failure type: unspecified Severe sepsis shock status: without septic shock Qualified Code(s): A41.9 - Sepsis, unspecified organism; R65.20 - Severe sepsis without septic shock; N17.9 - Acute kidney failure, unspecified Code(s): A41.9 - Sepsis, unspecified organism Status: Acute Assessment and Plan: Secondary to peritonitis. Patient also appears to have consolidation of the lower lobes on the CT done which could be aspiration versus atelectasis Repeat CT scan of abdomen and pelvis done on 08/06 showed gallbladder distention and also fluid collection likely exudative 08/06 patient underwent cholecystostomy and drainage of peritoneal abscess-cultures have been sent Patient drained 350 mL of purulent fluid from left lower quadrant drain and 450 mL of bilious liquid from gallbladder drain Surgery suspect small perforation from colon to be the cause that led to pelvic abscess. Discussed with general surgery and plan is to continue with drainage of abscess and antibiotics at this time with possible repeat exploratory laparotomy in near future depending on how patient does. Case discussed with Dr. Armijo from General surgery blood culture negative till now procalcitonin level 1.1 and lactic acid level was normal Cultures of fluid drained from abdominal fluid collection is growing prevotella species Patient received IV fluid bolus and and will continue on maintenance IV fluids until he started on TPN Hemodynamics have improved Continue empiric meropenem (2) Pelvic abscess in male: Code(s): K65.1 - Peritoneal abscess Status: Acute Assessment and Plan: See above (3) Peritonitis (acute) generalized: Code(s): K65.0 - Generalized (acute) peritonitis Status: Acute Assessment and Plan: See above (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 Bedside swallow eval done. General surgery has recommended the patient be started on ice chips and occasional popsicle at this time and no further advancement of diet Patient does appear to have bowel sounds on today's exam (6) Aspiration pneumonia: Code(s): J69.0 - Pneumonitis due to inhalation of food and vomit Status: Acute Assessment and Plan: See above (7) Hypotension: Code(s): I95.9 - Hypotension, unspecified Status: Acute Assessment and Plan: Patient hypotensive this morning which is likely multifactorial secondary to possible sepsis and patient was also on antihypertensive medication. Discontinue antihypertensive medications His lactic acid level is normal at this time.I patient was given 1 L fluid bolus and 1 L of fluid infusion Patient blood pressure has improved and he has not required any vasopressors Echocardiogram showed 70% EF with grade 2 diastolic dysfunction and possible right ventricular dysfunction (8) MOISÉS (acute kidney injury): Code(s): N17.9 - Acute kidney failure, unspecified Status: Acute Assessment and Plan: Patient developed acute kidney injury postop. The patient did receive contrast on 08/04 which may also have been contributory Nephrology is following patient Losartan was discontinued CK level a mildly elevated Patient has been on cautious amount of IV fluids will be continued until patient started TPN Creatinine has now improved and normalized Monitor urine output electrolytes and creatinine
[2023-08-08] MEDS: LIDOCAINE HCL 1% PF INJ 5 ML VIAL INFILTRATE (09:45)
[2023-08-08 09:46] LABS: Band Neutrophils Percent 10 % (0-6); Eosinophils Absolute Manual 0.14 K/mm3 (0.02-0.5); Eosinophils Percent Manual 1 % (0-4); Lymphocytes Absolute Manual 0.58 K/mm3 (1.1-4.5); Lymphocytes Percent Manual 4 % (18-44); Monocytes Absolute Manual 0.58 K/mm3 (0.1-0.90); Monocytes Percent Manual 4 % (3-9); Neutrophils Absolute Manual 13.37 K/mm3 (1.3-6.7); Neutrophils Percent Manual 81 % (46-73); Total Cells Counted 100
[2023-08-08 09:47] LABS: Platelet Estimate Adequate (Adequate)
[2023-08-08 09:48] LABS: Large Platelets Present; Poikilocytosis 1+ (NORMAL); Schistocytes None Seen (NORMAL)
[2023-08-08] MEDS: ASPIRIN 81 MG CHEWABLE TABLET 162 MG PO (11:28)
[2023-08-08] MEDS: POTASSIUM PHOS,M-BASIC-D-BASIC 20 MMOL in SODIUM CHLORIDE 0.9% IV 250 ML 64.17 MMOL IVPB (11:29)
[2023-08-08] MEDS: PANTOPRAZOLE SODIUM IV 40 MG VIAL IV PUSH (11:29)
[2023-08-08] MEDS: FAT EMULSIONS IV 20% 250 ML 20.83 ML IVPB (11:30)
[2023-08-08] MEDS: AMINO ACIDS 5%/D15W/E-LYTES/CA 2,000 ML with MULTIVITAMINS-12 INJ VIAL 1 2.5 ML, MULTIV... 40 ML IV CONT (11:31)
[2023-08-08 11:35] LABS: Glucose Point of Care 133 mg/dl (65-105)
[2023-08-08] MEDS: HEPARIN SOD/D5W 100 UNITS/ML 25,000 UNITS/250 ML BAG 19 UNITS IV CONT (11:57)
--- NOTE | 2023-08-08 12:32 | P.PNNP_ITS ---
Progress Note: A&P Assessment and Plan (1) MOISÉS (acute kidney injury): Code(s): N17.9 - Acute kidney failure, unspecified Status: Acute Assessment and Plan: * improvement noted * multifactorial etiology: * prerenal factors * relative hypotension (sometimes as low as 80s systolic) * ongoing use of ARB (losartan) * IV ibuprofen use * contrast exposure (CT scan on 08/04/23) * infection/sepsis * evaluation to date: * renal ultrasound okay * urine electrolytes prerenal * urine eosinophils negative * CPK mildly elevated (but not likely to affect kidney function) * follow repeat labs and UOP (2) Sepsis: Qualifiers: Acute renal failure type: unspecified Sepsis acute organ dysfunction status: with acute organ dysfunction Sepsis type: sepsis due to unspecified o rganism Severe sepsis acute organ dysfunction type: acute renal failure Severe sepsis shock status: without septic shock Qualified Code(s): A41.9 - Sepsis, unspecified organism; R65.20 - Severe sepsis without septic shock; N17.9 - Acute kidney failure, unspecified Code(s): A41.9 - Sepsis, unspecified organism Status: Acute Assessment and Plan: * thought to be secondary to peritonitis from gallbladder distension + peritoneal abscess * s/p cholecystomy tube + drainage/drain placement of peritoneal abscess * culture results noted * on antibiotics * possible repeat exploratory laparotomy depending on clinical course (3) Pelvic abscess in male: Code(s): K65.1 - Peritoneal abscess Status: Acute Assessment and Plan: * see #2 (4) Peritonitis (acute) generalized: Code(s): K65.0 - Generalized (acute) peritonitis Status: Acute Assessment and Plan: * see #2 (5) Right inguinal hernia: Code(s): K40.90 - Unilateral inguinal hernia, without obstruction or gangrene, not specified as recurrent Status: Chronic Assessment and Plan: * s/p repair with mesh * routine post-operative care * Surgery following (6) Atrial fibrillation with rapid ventricular response: Code(s): I48.91 - Unspecified atrial fibrillation Status: Acute Assessment and Plan: * Cardiology following * on IV amiodarone * rate control strategy * resume anticoagulation(?) Not much else to add from renal perspective - will continue to follow from a distance. Subjective Date/time seen: 08/08/23 12:32 Interval history: Follow-up for acute kidney injury/acute renal failure. Renal function has normalized by recent testing in association with good urine output; still with some mild abdominal pain but tolerable; no complaints of chest pain, shortness of breath, nausea, vomiting or cough; still with output noted from cholecystotomy and peritoneal abscess drain; stable hemodynamics noted; no other issues/events overnight or earlier this morning. Exam Narrative: General: elderly but WD/WN male in NAD Heart: IRRR, normal S1 and S2; no rub Lungs: clear anteriorly Abdomen: distended with decreased bowel sounds; abdominal drains noted Extremities: no cyanosis or clubbing; no edema Skin: no rash or nodules Objective Data Vital Signs Vital Signs: Vital Signs Temp Pulse Resp BP Pulse Ox O2 Del Method O2 Flow Rate 08/08/23 12:00 99.5 F 86 23 H 128/109 H 96 Nasal Cannula 3 08/08/23 10:0
--- NOTE | 2023-08-08 12:32 | PM.PNNEP ---
Progress Note: A&P Assessment and Plan (1) MOISÉS (acute kidney injury): Code(s): N17.9 - Acute kidney failure, unspecified Status: Acute Assessment and Plan: improvement noted multifactorial etiology: prerenal factors relative hypotension (sometimes as low as 80s systolic) ongoing use of ARB (losartan) IV ibuprofen use contrast exposure (CT scan on 08/04/23) infection/sepsis evaluation to date: renal ultrasound okay urine electrolytes prerenal urine eosinophils negative CPK mildly elevated (but not likely to affect kidney function) follow repeat labs and UOP (2) Sepsis: Qualifiers: Acute renal failure type: unspecified Sepsis acute organ dysfunction status: with acute organ dysfunction Sepsis type: sepsis due to unspecified organism Severe sepsis acute organ dysfunction type: acute renal failure Severe sepsis shock status: without septic shock Qualified Code(s): A41.9 - Sepsis, unspecified organism; R65.20 - Severe sepsis without septic shock; N17.9 - Acute kidney failure, unspecified Code(s): A41.9 - Sepsis, unspecified organism Status: Acute Assessment and Plan: thought to be secondary to peritonitis from gallbladder distension + peritoneal abscess s/p cholecystomy tube + drainage/drain placement of peritoneal abscess culture results noted on antibiotics possible repeat exploratory laparotomy depending on clinical course (3) Pelvic abscess in male: Code(s): K65.1 - Peritoneal abscess Status: Acute Assessment and Plan: see #2 (4) Peritonitis (acute) generalized: Code(s): K65.0 - Generalized (acute) peritonitis Status: Acute Assessment and Plan: see #2 (5) Right inguinal hernia: Code(s): K40.90 - Unilateral inguinal hernia, without obstruction or gangrene, not specified as recurrent Status: Chronic Assessment and Plan: s/p repair with mesh routine post-operative care Surgery following (6) Atrial fibrillation with rapid ventricular response: Code(s): I48.91 - Unspecified atrial fibrillation Status: Acute Assessment and Plan: Cardiology following on IV amiodarone rate control strategy resume anticoagulation(?) Not much else to add from renal perspective - will continue to follow from a distance. Subjective Date/time seen: 08/08/23 12:32 Interval history: Follow-up for acute kidney injury/acute renal failure. Renal function has normalized by recent testing in association with good urine output; still with some mild abdominal pain but tolerable; no complaints of chest pain, shortness of breath, nausea, vomiting or cough; still with output noted from cholecystotomy and peritoneal abscess drain; stable hemodynamics noted; no other issues/events overnight or earlier this morning. Exam Narrative: General: elderly but WD/WN male in NAD Heart: IRRR, normal S1 and S2; no rub Lungs: clear anteriorly Abdomen: distended with decreased bowel sounds; abdominal drains noted Extremities: no cyanosis or clubbing; no edema Skin: no rash or nodules Objective Data Vital Signs Vital Signs: Vital Signs Temp Pulse Resp BP Pulse Ox O2 Del Method O2 Flow Rate 08/08/23 12:00 99.5 F 86 23 H 128/109 H 96 Nasal Cannula 3 08/08/23 10:00 85 08/08/23 10:00 99.5 F 85 32 H 134/83 93 08/08/23 08:00 99.5 F 93 30 H 129/88 94 08/08/23 06:00 99.7 F H 95 28 H 148/82 H 92 08/08/23 06:00 95 08/08/23 04:00 99.9 F H 91 23 H 134/84 94 08/08/23 04:00 91 08/08/23 03:10 87 132/82 08/08/23 03:30 94 Nasal Cannula 3 08/08/23 02:00 98.8 F 86 31 H 127/78 94 08/08/23 02:00 86 08/08/23 00:00 99.2 F 80 30 H 126/67 95 08/08/23 00:00 80 08/08/23 00:00 94 Nasal Cannula 3 08/07/23 22:00 99.6 F 76 28 H 124/76 95 08/07/23 22:00 76
--- NOTE | 2023-08-08 14:27 | PM.PNCARD ---
Progress Note: A&P Assessment and Plan (1) Hypotension: Code(s): I95.9 - Hypotension, unspecified Status: Acute Assessment and Plan: Hypotension and sepsis, patient much improved after hydration, abscess drainage and antibiotics. (2) Atrial fibrillation with rapid ventricular response: Code(s): I48.91 - Unspecified atrial fibrillation Status: Acute Assessment and Plan: AFib is controlled with IV amiodarone, which we are planning for short-term use as the patient has not needed any rate controlling medications in the past. --Cont heparin to prevent cardioembolic events --Cont IV amio for HR control (3) CAD (coronary artery disease): Code(s): I25.10 - Atherosclerotic heart disease of [place] coronary artery without angina pectoris Status: Chronic Assessment and Plan: History of CAD and CABG (2009), no complaints of chest pain. Troponins remain normal. Stable. --Cont ASA --I believe pt has declined statin tx in the past (4) Pelvic abscess in male: Code(s): K65.1 - Peritoneal abscess Status: Acute Assessment and Plan: Abcess w/ peritonitis, much improved after drainage and antibiotics. Discussed GB culture w/ Dr. Peacock, who will expand antibiotic coverage. --Has a large gas bubble in ?large intestine? pushing up left hemidiapragm, perhaps causing sx of breathlessness. --Check KUB, CXR in a.m. (5) MOISÉS (acute kidney injury): Code(s): N17.9 - Acute kidney failure, unspecified Status: Acute Assessment and Plan: Acute renal failure, Dr. Stein following. Improving w/ hydration, good urine output.Creat back to baseline. Subjective Date/time seen: 08/08/23 14:27 Interval history: Follow-up for AFib RVR. History of persistent AFib which has not required medication for rate control, admitted for right inguinal hernia repair. Developed a fib RVR postop associated with hypotension, and was started on IV amiodarone 08/05/2023. Followed by Dr. Nicholson for his AFib, and CAD history of CABG. Date of service 08/06/2023: Family concerned that pt is not himself, has been lethargic and tachypnec today.. BP 95-118 over 50-70 mmHg. O2 at 2-3 L nasal cannula. Chest x-ray showed possible CHF. Creatinine rising, now up to 2.8 with a BUN of 72. Normal WBC but 32% bands. Getting lactated Ringer's at 50 cc/hour. Made 250 cc of urine so far today, 200 total yesterday. TRansferred to ICU. Date of service 08/07/2023: Blood pressure improved after a Liter of IV fluids. Low grade temp. There was concern for acalculous cholecystitis and the patient had a drain placed in the gallbladder, and another drain was placed in a fluid collection/suspected abscess in the left lower quadrant. Being treated for peritonitis. Mental status better this morning. Urine output is good and creatinine has declined to 1.6. Trops neg and Echo EF 70%. Date of service 08/04/2023: C/o fatigue, but feels like he can't get a deep breath. On 3 L NC, unchanged, good O2 sat. CXR shows a large gas bubble in large? intestine. Started on heparin last night for his persistent atrial fibrillation. Good urine output. Gallbladder culture showed Enterococcus and abscess culture showed Prevotella species. Blood C&S neg. Tele = a fib controlled HR. Review of Systems Review of Systems: No chest pain but some shortness of breath. Tolerating ice chips. No nausea. Still some left lower quadrant pain. No fevers or chills. Exam Narrative: Elderly male awake and alert in ICU NAD [facility]: Mouth: Yes dry mucous membranes Eyes: General: appearance normal, both eyes and all related structures Neck: Neck: no JVD Thyroid: thyroid normal Resp: Effort & Inspection: normal respiratory effort Other: clear anaterolaterally Cardio: Rate: regular rate and tachycardic Rhythm: abnormal rhythm irregularly irregular Heart sounds: no gallops, Murmur heart so
[2023-08-08] MEDS: CENTRAL LINE FLUSH 10 ML IV PUSH ×2 (14:29→22:00)
--- NOTE | 2023-08-08 14:52 | PM.PNGS ---
Progress Note: A&P Assessment and Plan (1) Sepsis: Qualifiers: Sepsis type: sepsis due to unspecified organism Sepsis acute organ dysfunction status: with acute organ dysfunction Severe sepsis acute organ dysfunction type: acute renal failure Acute renal failure type: unspecified Severe sepsis shock status: without septic shock Qualified Code(s): A41.9 - Sepsis, unspecified organism; R65.20 - Severe sepsis without septic shock; N17.9 - Acute kidney failure, unspecified Code(s): A41.9 - Sepsis, unspecified organism Status: Acute Assessment and Plan: No other nearly resolved after placement of percutaneous drain pelvic abscess and cholecystostomy tube 2 days ago (2) Pelvic abscess in male: Code(s): K65.1 - Peritoneal abscess Status: Acute Assessment and Plan: Anaerobic culture showed Prevotella species. For aerobe culture showed a mix of different bacteria. 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 Total amount of drainage yesterday was 250 cc consistent with low output enterocutaneous fistula. Patient continues to improve. Will recheck CT scan again tomorrow to assess amount of residual fluid in pelvis. (4) Cholecystitis: Code(s): K81.9 - Cholecystitis, unspecified Status: Acute Assessment and Plan: Drained 2 days ago with cholecystostomy tube. Continues to drain bile. Cultures from placement of drain showing Enterococcus. (5) MOISÉS (acute kidney injury): Code(s): N17.9 - Acute kidney failure, unspecified Status: Acute Assessment and Plan: Improved and now nearly normal (6) Atrial fibrillation with rapid ventricular response: Code(s): I48.91 - Unspecified atrial fibrillation Status: Acute Assessment and Plan: Rate controlled, on heparin drip (7) Protein-calorie malnutrition, severe: Code(s): E43 - Unspecified severe protein-calorie malnutrition Status: Acute Assessment and Plan: Patient has not been able to eat due to abdominal complaints and still has no appetite with distended abdomen. Will place PICC line and start TPN. (8) Postoperative ileus: Code(s): K91.89 - Other postprocedural complications and disorders of digestive system; K56.7 - Ileus, unspecified Status: Acute Assessment and Plan: Likely due to pelvic abscess above. Subjective Subjective Date/Time Seen: 08/08/23 14:52 Post Op day: #6 Patient reports: flatus, no bowel movement and fever (Low-grade fevers, 37.6 or 37.7) Interval history: Had a rougher night then his day yesterday. Had trouble sleeping and felt like he was struggling at times to breathe. This morning, he does feel better in this regard. He feels tired but also says that he is getting a little better each day. Appetite is poor. Does not feel like he could eat much of anything. Review of Systems Review of Systems: All systems reviewed & are unremarkable except as noted in HPI and below (HPI) Exam Const: General: comfortable, no acute distress, alert, awake, tired appearing and edematous Orientation/consciousness: No confusion GI: Inspection: no abdominal wall ecchymosis, Abdominal wall edema, distended and incision (Right inguinal incision healing well) GI Palp: Yes Firmness to palpation present (GI), Yes Tenderness to palpation present (GI) (Mild diffuse tenderness, worse on the left), No Guarding due to palpation present (GI) and No Rebound tenderness present : Male General Exam: Yes edema and No hernia Penis: Yes edematous Scrotum: edematous Neuro: General: patient oriented x3 and no focal motor deficits Extrem: General: no calf tenderness and edema (Edematous all 4 extremities) Psych: Speech and movement: Clear speech present Affect: Blunted affect present Attitude: cooperative Thought process: Norm
[2023-08-08] MEDS: VANCOMYCIN 1,250 MG/NS 250 ML 1,250 MG/250 ML BAG 166.67 MG IVPB ×2 (17:16)
[2023-08-08 17:35] LABS: Partial Thromboplastin Time 68.2 SECONDS (22.3-36.8)
[2023-08-08] MEDS: HEPARIN SODIUM 5,000 UNITS/ML VIAL 3500 UNITS IV PUSH (17:59)
[2023-08-08 18:04] LABS: Glucose Point of Care 141 mg/dl (65-105)
[2023-08-08 18:32] LABS: MRSA (PCR) NOT DETECTED (NOT DETECTE)
[2023-08-08 23:14] LABS: Glucose Point of Care 160 mg/dl (65-105)
[2023-08-09] VITALS (20 sets, daily range): BP systolic 134–150; BP diastolic 75–85; PULSE 73–94; RESP 19–36; TEMP 37.2–37.7; O2SAT 92–100
[2023-08-09 00:27] LABS: Partial Thromboplastin Time 92.4 SECONDS (22.3-36.8)
[2023-08-09] MEDS: HEPARIN SOD/D5W 100 UNITS/ML 25,000 UNITS/250 ML BAG 21 UNITS IV CONT ×3 (00:30→23:05)
--- NOTE | 2023-08-09 03:04 | PC.NURSE ---
central monitor down from 129 - 256. pt monitored at bedside by rn
[2023-08-09] MEDS: FUROSEMIDE INJ 40 MG/4 ML VIAL IV PUSH (03:47)
[2023-08-09] MEDS: AMIODARONE 360 MG/D5W 200 ML 360 MG/200 ML BAG 16.67 MG IV CONT (03:51)
[2023-08-09] MEDS: ALBUTEROL SULFATE NEB 2.5 MG/3 ML INH 10 MG INHALATION (04:50)
[2023-08-09] MEDS: MEROPENEM 1 GM/NS 100 ML 1 GM/100 ML BAG IVPB ×3 (06:05→22:08)
[2023-08-09 06:09] LABS: Alveolar/Arterial O2 Gradient 196.3 mmHg; Base Excess ABG 7.2 mEq/l (+/-2.0); Fractional Inspired Oxygen 44 %; HCO3 ABG 32.8 mEq/l (22.0-26.0); Oxygen Content ABG 18.1 %vol (16.0-22.0); Oxygen Saturation ABG 91.7 % (95.0-100.0); Oxyhemoglobin 91.2 % THb (90.0-100.0); PCO2 ABG 49.9 mmHg (35.0-45.0); PO2 ABG 60.5 mmHg (80.0-100.0); PO2 FiO2 Ratio Arterial Blood 1.38 %; Total Hemoglobin 14.1 g/dL (12.0-18.0); pH ABG 7.436 (7.350-7.450)
[2023-08-09 06:12] LABS: Device NASAL CANNULA; Modified Allen's Test Pass; Site Drawn LEFT RADIAL
[2023-08-09 06:32] LABS: Partial Thromboplastin Time 83.8 SECONDS (22.3-36.8)
[2023-08-09 06:45] LABS: Glucose Point of Care 165 mg/dl (65-105)
[2023-08-09 06:47] LABS: Hematocrit 39.9 % (42.0-52.0); Hemoglobin 12.7 g/dL (14.0-18.0); Mean Corpuscular HGB Conc 31.8 g/dl (32-36); Mean Corpuscular Hemoglobin 30.6 pg (26-34); Mean Corpuscular Volume 96.1 fl (80-100); Mean Platelet Volume 10.8 fl (7.4-10.4); Platelet Count Result 230 k/mm3 (150-375); Red Blood Count 4.15 M/mm3 (4.6-6.20); Red Cell Distribution Width 15.1 % (11.5-14.5)
[2023-08-09] MEDS: CENTRAL LINE FLUSH 10 ML IV PUSH ×3 (06:52→22:16)
[2023-08-09] MEDS: LEVOTHYROXINE SODIUM INJ 100 MCG/5 ML VIAL 50 MCG IV PUSH (06:52)
[2023-08-09 06:57] LABS: Alanine Aminotransferase 21 U/L (6-50); Albumin Level 2.9 g/dL (3.5-5.1); Alkaline Phosphatase 89 U/L (38-126); Anion Gap 8 mmol/L (8-16); Aspartate Amino Transferase 35 U/L (17-59); Bilirubin,Total 0.9 mg/dL (0.2-1.3); Blood Urea Nitrogen 29 mg/dL (9-20); Calcium 7.9 mg/dL (8.4-10.2); Carbon Dioxide 32 mmol/L (22-30); Chloride 102 mmol/L (98-107); Estimated CRCL calculation 69 ml/min; Estimated Glomerular Filt Rate > 60; Glucose 183 mg/dL (65-110); Magnesium 2.5 mg/dL (1.6-2.3); Phosphorus 2.2 mg/dL (2.5-4.5); Potassium 3.7 mmol/L (3.4-5.0); Sodium 142 mmol/L (137-145); Triglycerides 260 mg/dL (<150)
[2023-08-09 07:34] LABS: Band Neutrophils Percent 7 % (0-6); Eosinophils Absolute Manual 0.48 K/mm3 (0.02-0.5); Eosinophils Percent Manual 3 % (0-4); Lymphocytes Absolute Manual 0.48 K/mm3 (1.1-4.5); Lymphocytes Percent Manual 3 % (18-44); Monocytes Absolute Manual 0.48 K/mm3 (0.1-0.90); Monocytes Percent Manual 3 % (3-9); Neutrophils Absolute Manual 14.56 K/mm3 (1.3-6.7); Neutrophils Percent Manual 84 % (46-73); Total Cells Counted 100
[2023-08-09 07:35] LABS: Platelet Estimate Adequate (Adequate); Poikilocytosis 1+ (NORMAL); Schistocytes None Seen (NORMAL)
[2023-08-09] MEDS: FAT EMULSIONS IV 20% 250 ML 20.83 ML IVPB (08:25)
--- NOTE | 2023-08-09 09:00 | PM.IMCN ---
Assessment and Plan Assessment and plan (1) Respiratory failure: Code(s): J96.90 - Respiratory failure, unspecified, unspecified whether with hypoxia or hypercapnia Status: Acute Assessment and Plan: multifactorial, fluid overload from ?HF, possible aspiration pneumonia vs atelectasis, CXR 08/09 showed mild pulm edema, small left pleural effusion, right opacities worsening, concerning for pneumonia MRSA swab sent and pending 08/09: Linezolid added to cover Enterococcus species growing from cholecystostomy tube, will also cover for any possible MRSA pneumonia Lasix and Bumex given already, agree with this (2) Cholecystitis: Code(s): K81.9 - Cholecystitis, unspecified Status: Acute Assessment and Plan: cholecystostomy fluid drained and tube placed 08/06 Culture growing Enterococcus faecium, sensitivity pending Discussed with infectious disease pharmacist, initiated on linezolid 08/09 due to resistance patterns to vancomycin and ampicillin at this time (3) Aspiration pneumonia: Code(s): J69.0 - Pneumonitis due to inhalation of food and vomit Status: Acute Assessment and Plan: Unsure if this is an accurate diagnosis, however, currently being treated with meropenem, started 08/06 and linezolid started 08/09, if patient continues to worsen, could consider adding Flagyl (4) Pelvic abscess in male: Code(s): K65.1 - Peritoneal abscess Status: Acute Assessment and Plan: Pelvic drain placed 08/06 Culture growing prevotella species, currently being treated with meropenem Sensitivity pending (5) 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 Status: Acute Assessment and Plan: due to small colonic perforation, management per general surgery CT chest/abdomen/pelvis today to reassess abscesses/fistula (6) Sepsis: Qualifiers: Acute renal failure type: unspecified Sepsis acute organ dysfunction status: with acute organ dysfunction Sepsis type: sepsis due to unspecified organism Severe sepsis acute organ dysfunction type: acute renal failure Severe sepsis shock status: without septic shock Qualified Code(s): A41.9 - Sepsis, unspecified organism; R65.20 - Severe sepsis without septic shock; N17.9 - Acute kidney failure, unspecified Code(s): A41.9 - Sepsis, unspecified organism Status: Acute Assessment and Plan: See above for details (7) MOISÉS (acute kidney injury): Code(s): N17.9 - Acute kidney failure, unspecified Status: Acute Assessment and Plan: resolved, continue to monitor (8) Encephalopathy: Code(s): G93.40 - Encephalopathy, unspecified Status: Acute Assessment and Plan: Improving significantly, multifactorial etiology obviously (9) Atrial fibrillation with rapid ventricular response: Code(s): I48.91 - Unspecified atrial fibrillation Status: Acute Assessment and Plan: Continue amiodarone infusion per Cardiology, stable Also on heparin infusion (10) Postoperative ileus: Code(s): K91.89 - Other postprocedural complications and disorders of digestive system; K56.7 - Ileus, unspecified Status: Acute Assessment and Plan: Management per general surgery, currently on ice chips, diet advancing as tolerated (11) Essential (primary) hypertension: Code(s): I10 - Essential (primary) hypertension Status: Chronic Assessment and Plan: Blood pressures reviewed 08/09 (12) Hypothyroidism (acquired): Code(s): E03.9 - Hypothyroidism, unspecified Status: Chronic Assessment and Plan: Continue levothyroxine (13) Protein-calorie malnutrition, severe: Code(s): E43 - Unspecified severe protein-calorie malnutrition Status: Acute Assessment and Plan: Continue TPN per general surgery management Plan DVT prophylaxis with heparin drip
[2023-08-09] MEDS: PANTOPRAZOLE SODIUM IV 40 MG VIAL IV PUSH (09:18)
[2023-08-09] MEDS: ASPIRIN 81 MG CHEWABLE TABLET 162 MG PO (09:18)
[2023-08-09] MEDS: LINEZOLID 600 MG/300 ML 600 MG/300 ML SOLN 300 MG IVPB ×2 (09:50→21:03)
[2023-08-09] MEDS: BUMETANIDE INJ 1 MG/4 ML VIAL 2 MG IV PUSH (10:19)
--- NOTE | 2023-08-09 11:02 | PCRCNOTE ---
RT went to collect ABG at 1103 and pt was out of room down in CT scan. Will obtain ABG after pt returns from CT scan.
--- NOTE | 2023-08-09 11:15 | PCFNICU ---
ICU Rounding Note: Pt current nutrition is TPN Clinmix 02/04/ @ 40 ml/h with lipids: 1182 kcal, 48 g protein, 1210 ml total volume. Nutrition recommendation: Advance TPN to 70 ml/h (1693 kcal, 84 g protein, 1930 ml total volume) to meet protein energy needs Last recorded weight is 112.8 kg. Bowel Motility: Last BM 08/08/23 Labs Reviewed: Hgb 12.7, Hct 39.9, Alb 2.9, BUN 29, Glu 183, TRIG 260 Meds Noted: Protonix, meropenem, Synthroid Skin: Percutaneous drain Additional Notes: Pt continues on TPN. Had bowel movement. Recommend advancing TPN. MBSS is recommended when pt is ready for oral intake. Following daily in ICU rounds. Will montior weight, labs, skin, meds, TPN every Saturday and Saturday. .
[2023-08-09] MEDS: AMINO ACIDS 5%/D15W/E-LYTES/CA 2,000 ML with MULTIVITAMINS-12 INJ VIAL 1 2.5 ML, MULTIV... 40 ML IV CONT (11:31)
[2023-08-09 11:32] LABS: Alveolar/Arterial O2 Gradient 193.1 mmHg; Base Excess ABG 8.5 mEq/l (+/-2.0); Fractional Inspired Oxygen 44 %; HCO3 ABG 32.9 mEq/l (22.0-26.0); Oxygen Content ABG 18.6 %vol (16.0-22.0); Oxygen Saturation ABG 95.2 % (95.0-100.0); Oxyhemoglobin 94.4 % THb (90.0-100.0); PO2 ABG 70.5 mmHg (80.0-100.0); pH ABG 7.491 (7.350-7.450)
[2023-08-09 11:33] LABS: Device HIGH FLOW NASAL CANN; Modified Allen's Test Pass; Site Drawn RIGHT RADIAL
--- NOTE | 2023-08-09 11:36 | PCRCNOTE ---
ABG obtained at 1130 on 6L HFNC due to pt returning from CT scan. Result: pH 7.491 PCO2 44.0 PO2 70.5 HCO3 32.9. ABG results compared to this morning seemed to have improve. Will keep pt on 6L HFNC for the time being with SpO2 levels of 95%, airvo is still on standby for if pt becomes short of breath. RN informed.
--- NOTE | 2023-08-09 11:42 | PM.PNCARD ---
Progress Note: A&P Assessment and Plan (1) Paroxysmal atrial fibrillation: Code(s): I48.0 - Paroxysmal atrial fibrillation Status: Chronic Plan 83-year-old man with: Chronic atrial fibrillation which at baseline does not require any medication for rate control. He came in with a picture of sepsis abdominal abscesses and in that setting had RVR which of course is not surprising. Heart rate has been well controlled with antibiotic treatment and with intravenous amiodarone. I am going to stop the amiodarone that today as it was not our intention to continue any rate control medication for the long-term. Will continue to follow peripherally. Moises Pettit MD [facility] Subjective Date/time seen: Date of service: 08/09/23 11:42 Interval history: Follow-up for AFib RVR. History of persistent AFib which has not required medication for rate control, admitted for right inguinal hernia repair. Developed a fib RVR postop associated with hypotension, and was started on IV amiodarone 08/05/2023. Followed by Dr. Nicholson for his AFib, and CAD history of CABG. Date of service 08/06/2023: Family concerned that pt is not himself, has been lethargic and tachypnec today.. BP 95-118 over 50-70 mmHg. O2 at 2-3 L nasal cannula. Chest x-ray showed possible CHF. Creatinine rising, now up to 2.8 with a BUN of 72. Normal WBC but 32% bands. Getting lactated Ringer's at 50 cc/hour. Made 250 cc of urine so far today, 200 total yesterday. TRansferred to ICU. Date of service 08/07/2023: Blood pressure improved after a Liter of IV fluids. Low grade temp. There was concern for acalculous cholecystitis and the patient had a drain placed in the gallbladder, and another drain was placed in a fluid collection/suspected abscess in the left lower quadrant. Being treated for peritonitis. Mental status better this morning. Urine output is good and creatinine has declined to 1.6. Trops neg and Echo EF 70%. Date of service 08/04/2023: C/o fatigue, but feels like he can't get a deep breath. On 3 L NC, unchanged, good O2 sat. CXR shows a large gas bubble in large? intestine. Started on heparin last night for his persistent atrial fibrillation. Good urine output. Gallbladder culture showed Enterococcus and abscess culture showed Prevotella species. Blood C&S neg. Tele = a fib controlled HR. Date of service 08/09/2023: Patient is a frail elderly gentleman still in the ICU and receiving antibiotics for Enterococcus and abscess coverage. Had a follow-up abdominal CT earlier this morning. Remains on very low dose of IV amiodarone for rate control, heart rate has not been a problem for a number of days. Exam Narrative: Elderly male awake and alert in ICU NAD Const: General: no acute distress and uncomfortable Other: Pleasant elderly man in bed supine head of the bed elevated about 45? not in great distress but complaining of mid abdominal discomfort HENMT: Mouth: Yes moist mucous membranes and Yes dry mucous membranes Eyes: General: appearance normal, both eyes and all related structures Sclera: sclerae normal Neck: Neck: supple and no JVD Thyroid: thyroid normal Resp: Effort & Inspection: normal respiratory effort Auscultation: clear to auscultation bilaterally Other: clear anaterolaterally Cardio: Rate: regular rate and tachycardic Rhythm: abnormal rhythm irregularly irregular Heart sounds: no gallops, Murmur heart sound present (1-2/6 JERRY left upper sternal border) and no rubs Other: Borderline tachycardic, heart rate around 100 GI: Inspection: distended Auscultation: bowels sounds not normal Other: Left lower quadrant tenderness, diminished bowel sounds, draining purulent fluid LLQ Urinary Catheter: Urinary Catheter: patent and draining Skin: General skin exam: normal color and no rashes or lesions noted Neuro: Speech: normal speech Other: Alert and oriented, recognises me. E
[2023-08-09 11:45] LABS: Glucose Point of Care 170 mg/dl (65-105)
--- NOTE | 2023-08-09 16:07 | PM.PNGS ---
Progress Note: A&P Assessment and Plan (1) Anasarca: Code(s): R60.1 - Generalized edema Status: Acute Assessment and Plan: Pulmonary edema as well as diffuse edema throughout. Discussed with Dr. Vilma Anderson. Will diurese aggressively. Patient already is having high urine output from Bumex given this morning. Renal function is now normal and patient can be diuresed safely. (2) Cholecystitis: Code(s): K81.9 - Cholecystitis, unspecified Status: Acute Assessment and Plan: Culture growing Enterococcus. Zyvox has been started. Gallbladder appears well drained on CT scan. (3) Pelvic abscess in male: Code(s): K65.1 - Peritoneal abscess Status: Acute Assessment and Plan: Will drained. Growing prevotella in the anaerobic culture and mixed salomon in the air open culture. CT shows other smaller collections that may be abscesses. These very well could resolve with just antibiotic therapy. If not several of these could be drained or aspirated if needed. 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 Continue to monitor. Keep patient NPO except sips and ice chips for couple more days then possibly try fluids. If output increases with oral intake, will need to back off a few days and try oral intake again then. (5) Protein-calorie malnutrition, severe: Code(s): E43 - Unspecified severe protein-calorie malnutrition Status: Acute Assessment and Plan: Dietitian assessment recommends increasing rate of TPN to 70 an hour which I have done. (6) Paroxysmal atrial fibrillation: Code(s): I48.0 - Paroxysmal atrial fibrillation Status: Chronic Assessment and Plan: Anticoagulated on heparin drip. Dr. Nicholson following. Plan I discussed patient's condition and plan with Dr. Cunningham today. Her involvement is appreciated. I had a long talk with the patient's and daughter today. I went over numerous aspects of his condition-rising white blood cell count, pelvic abscess, pulmonary edema and generalized edema, need for diuresis, confusion or sundowning displayed last night. I also discussed that there is a leakage of small intestinal content associated with the pelvic abscess that was drained with the pigtail catheter on 08/06/2023. I suspect this occurred when I was reducing the small intestine that had been living in his scrotum for a long time. Probably 2/3 of his small intestine resided in his scrotal hernia. This was so much intestine that there was very little room to try to reduce the intestine even with the entire area fully displayed. In trying to replaced the small intestine using a ring forceps, which I have done on numerous occasions in the past, it was difficult to get the bowel through the very tight opening and it seems most likely that there was an injury to the small intestine that I was not able to recognize. The leakage of enteric content through the drain constitutes an enterocutaneous fistula. The fistula output has been small so far. Enterocutaneous fistulae such as this are most likely to close without surgical intervention. I also explained that the patient will need to be in the hospital for quite a while and even when he is discharged he may need to go to a rehab facility or intermediate facility. Subjective Subjective Date/Time Seen: 08/09/23 16:07 Post Op day: #7 Patient reports: pain is less, bowel movement and afebrile Review of Systems Review of Systems: All systems reviewed & are unremarkable except as noted in HPI and below (HPI) Exam Const: General: comfortable, awake, tired appearing and edematous Orientation/consciousness: No confusion Other: Per patient's family, he was confused and hallucinating last night but is lucid when I came by to see him. GI: Inspection
[2023-08-09 17:53] LABS: Glucose Point of Care 168 mg/dl (65-105)
[2023-08-09 23:11] LABS: Glucose Point of Care 155 mg/dl (65-105)
[2023-08-10] VITALS (16 sets, daily range): BP systolic 93–164; BP diastolic 56–88; PULSE 81–99; RESP 18–35; TEMP 37.4–37.7; O2SAT 93–100
--- NOTE | 2023-08-10 05:38 | PCRCNOTE ---
RN removed high flow therapy from patient approximately 0100. Patient's O2 was 96%, HR 96, RR 34 RT was notified at 0200. RN reapplied high flow therapy at 0400 due to high respirations. Patient's vitals are now 98%, HR 99, RR 26
[2023-08-10] MEDS: MEROPENEM 1 GM/NS 100 ML 1 GM/100 ML BAG IVPB ×3 (05:41→21:04)
[2023-08-10 05:48] LABS: Basophils Absolute Auto 0.2 K/mm3 (0.0-0.1); Basophils Percent Auto 0.9 % (0.2-1.2); Eosinophils Absolute Auto 0.8 K/mm3 (0-0.3); Hematocrit 39.5 % (42.0-52.0); Hemoglobin 12.5 g/dL (14.0-18.0); Immature Granulocyte Absolute 2.15 K/mm3 (0.00-0.031); Immature Granulocyte Percent A 11.3 % (0-0.5); Lymphocytes Absolute Auto 1.08 K/mm3 (0.9-3.2); Lymphocytes Percent Auto 5.7 % (18.3-44.2); Mean Corpuscular HGB Conc 31.6 g/dl (32-36); Mean Corpuscular Hemoglobin 30.3 pg (26-34); Mean Corpuscular Volume 95.9 fl (80-100); Mean Platelet Volume 11.4 fl (7.4-10.4); Monocytes Absolute Auto 0.7 K/mm3 (0.1-0.6); Monocytes Percent Auto 3.6 % (2.6-8.5); Neutrophils Absolute Auto 14.3 K/mm3 (1.3-6.7); Neutrophils Percent Auto 74.5 % (45.5-73.1); Platelet Count Result 270 k/mm3 (150-375); Red Blood Count 4.12 M/mm3 (4.6-6.20); Red Cell Distribution Width 14.8 % (11.5-14.5); White Blood Count 19.1 K/mm3 (4.5-10.0)
[2023-08-10 05:56] LABS: Anion Gap 5 mmol/L (8-16); Blood Urea Nitrogen 29 mg/dL (9-20); Calcium 7.8 mg/dL (8.4-10.2); Carbon Dioxide 35 mmol/L (22-30); Chloride 99 mmol/L (98-107); Estimated CRCL calculation 76 ml/min; Estimated Glomerular Filt Rate > 60; Glucose 145 mg/dL (65-110); Phosphorus 1.8 mg/dL (2.5-4.5); Potassium 3.4 mmol/L (3.4-5.0); Sodium 139 mmol/L (137-145)
[2023-08-10] MEDS: HEPARIN SOD/D5W 100 UNITS/ML 25,000 UNITS/250 ML BAG 21 UNITS IV CONT ×2 (06:06→12:36)
[2023-08-10] MEDS: LEVOTHYROXINE SODIUM INJ 100 MCG/5 ML VIAL 50 MCG IV PUSH (06:09)
[2023-08-10] MEDS: CENTRAL LINE FLUSH 10 ML IV PUSH ×3 (06:09→21:12)
[2023-08-10] MEDS: PANTOPRAZOLE SODIUM IV 40 MG VIAL IV PUSH (09:04)
[2023-08-10] MEDS: ASPIRIN 81 MG CHEWABLE TABLET 162 MG PO (09:04)
[2023-08-10] MEDS: BUMETANIDE INJ 1 MG/4 ML VIAL 2 MG IV PUSH (09:04)
[2023-08-10] MEDS: LINEZOLID 600 MG/300 ML 600 MG/300 ML SOLN 200 MG IVPB (09:05)
[2023-08-10] MEDS: FAT EMULSIONS IV 20% 250 ML 20.8 ML IVPB (09:05)
--- NOTE | 2023-08-10 11:37 | PM.IMPN ---
Progress Note: A&P Assessment and Plan (1) Respiratory failure: Code(s): J96.90 - Respiratory failure, unspecified, unspecified whether with hypoxia or hypercapnia Status: Acute Assessment and Plan: multifactorial, fluid overload from ?HF, possible aspiration pneumonia vs atelectasis, CXR 08/09 showed mild pulm edema, small left pleural effusion, right opacities worsening, concerning for pneumonia--CT less concerning for pna MRSA swab sent and pending 08/09: Linezolid added to cover Enterococcus species growing from cholecystostomy tube, will also cover for any possible MRSA pneumonia Lasix and Bumex given, improved resp status resolved (2) Cholecystitis: Code(s): K81.9 - Cholecystitis, unspecified Status: Acute Assessment and Plan: cholecystostomy fluid drained and tube placed 08/06 Culture growing Enterococcus faecium, sensitivity pending Discussed with infectious disease pharmacist, initiated on linezolid 08/09 due to resistance patterns to vancomycin and ampicillin at this time (3) Aspiration pneumonia: Code(s): J69.0 - Pneumonitis due to inhalation of food and vomit Status: Acute Assessment and Plan: Unsure if this is an accurate diagnosis, however, currently being treated with meropenem, started 08/06 and linezolid started 08/09, if patient continues to worsen, could consider adding Flagyl (4) Pelvic abscess in male: Code(s): K65.1 - Peritoneal abscess Status: Acute Assessment and Plan: Pelvic drain placed 08/06 Culture growing prevotella species, currently being treated with meropenem Sensitivity pending (5) 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 Status: Acute Assessment and Plan: due to small colonic perforation, management per general surgery CT chest/abdomen/pelvis today to reassess abscesses/fistula (6) Sepsis: Qualifiers: Sepsis type: sepsis due to unspecified organism Sepsis acute organ dysfunction status: with acute organ dysfunction Severe sepsis acute organ dysfunction type: acute renal failure Acute renal failure type: unspecified Severe sepsis shock status: without septic shock Qualified Code(s): A41.9 - Sepsis, unspecified organism; R65.20 - Severe sepsis without septic shock; N17.9 - Acute kidney failure, unspecified Code(s): A41.9 - Sepsis, unspecified organism Status: Acute Assessment and Plan: leuk slowly worsening, unsure of etiology, currently being treated for current infections with meropenem and linezolid check crp, pct, LA, blood cultures low grade fever noted overnight (7) MOISÉS (acute kidney injury): Code(s): N17.9 - Acute kidney failure, unspecified Status: Acute Assessment and Plan: resolved, continue to monitor (8) Encephalopathy: Code(s): G93.40 - Encephalopathy, unspecified Status: Acute Assessment and Plan: Improving significantly, multifactorial etiology obviously (9) Atrial fibrillation with rapid ventricular response: Code(s): I48.91 - Unspecified atrial fibrillation Status: Acute Assessment and Plan: Continue amiodarone infusion per Cardiology, stable Also on heparin infusion (10) Postoperative ileus: Code(s): K91.89 - Other postprocedural complications and disorders of digestive system; K56.7 - Ileus, unspecified Status: Acute Assessment and Plan: Management per general surgery, currently on ice chips, diet advancing as tolerated (11) Essential (primary) hypertension: Code(s): I10 - Essential (primary) hypertension Status: Chronic Assessment and Plan: Blood pressures reviewed 08/10 (12) Hypothyroidism (acquired): Code(s): E03.9 - Hypothyroidism, unspecified Status: Chronic Assessment and Plan: Continue levothyroxine (13) Protein-calorie malnutrition, severe: Code(
[2023-08-10 12:46] LABS: Glucose Point of Care 148 mg/dl (65-105)
--- NOTE | 2023-08-10 14:35 | PM.PNGS ---
Progress Note: A&P Assessment and Plan (1) Protein-calorie malnutrition, severe: Code(s): E43 - Unspecified severe protein-calorie malnutrition Status: Acute Assessment and Plan: Patient remains on TPN. We will reorder the same TPN for today. Plan on continuing TPN now to hopefully ensure low output from the enterocutaneous fistula and hopefully spontaneous closure. (2) Cholecystitis: Code(s): K81.9 - Cholecystitis, unspecified Status: Acute Assessment and Plan: The gallbladder from decompressed with a percutaneously placed cholecystostomy tube. Culture results are noted and infectious disease pharmacist is adjusting dosages of appropriately chosen antibiotics for coverage. Continue the cholecystostomy tube for now. 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 For now the pelvic abscess is adequately drained with a pigtail catheter. This will likely result in a enterocutaneous fistula. Without obvious evidence of distal obstruction I would expect the fistula to eventually closed with prolonged bowel rest. Continue with catheter for control of the fistula output which is fairly low. Continue TPN for now. Supportive management. (4) Right inguinal hernia: Code(s): K40.90 - Unilateral inguinal hernia, without obstruction or gangrene, not specified as recurrent Status: Chronic Assessment and Plan: Repaired, incision looks good. Some ecchymosis but no wound infection. (5) Encephalopathy: Code(s): G93.40 - Encephalopathy, unspecified Status: Acute Assessment and Plan: Acute confusion most likely due to recent surgery and stress of acute illness. He has not been sleeping well the last few nights. This will certainly contribute to hospital due to psychosis. Will try to use some Benadryl to help him sleep at night. Will try to avoid benzodiazepines if at all possible. Subjective Subjective Date/Time Seen: 08/10/23 14:35 Interval history: Remains in intensive care unit today. He awakens easily to voice and seems to answer questions appropriately although the states that he does have some more confusion today. The patient's nurse reports that overnight he has not slept well in the last couple of nights. He remains on TPN. White blood count was checked today and it was elevated at 19,000 from 16,000. Otherwise he has been hemodynamically stable and is not on any pressors. Exam GI: Other: Abdomen is soft and mildly distended. There is no significant tenderness to the abdomen. Right upper quadrant percutaneous cholecystostomy tube is in place with drainage of typical nonpurulent bile. No blood in the bile either. Right lower quadrant pelvic drain with enteric contents output suggestive of small-bowel perforation. The right groin incision is ecchymotic but no evidence of cellulitis or infected hematoma. Objective Data Vital Signs Vital Signs: Vital Signs - 24 hr 08/09/23 15:13 08/09/23 16:00 08/09/23 16:00 Temperature 37.2 C Pulse Rate 78 83 85 Respiratory Rate 28 H 31 H Blood Pressure 138/85 Pulse Oximetry 95 95 Oxygen Delivery High Flow Therapy with Na Oxygen Flow Rate 45 Fraction of Inspired Oxygen 32 08/09/23 18:00 08/09/23 18:00 08/09/23 20:00 Temperature 37.5 C Pulse Rate 84 85 85 Respiratory Rate 20 Blood Pressure 139/80 Pulse Oximetry 97 Oxygen Delivery Oxygen Flow Rate Fraction of Inspired Oxygen 08/09/23 20:00 08/09/23 20:00 08/09/23 20:17 Temperature 37.7 C H Pulse Rate 86 84 86 Respiratory Rate 32 H 32 H 26 H Blood Pressure 145/75 H Pulse Oximetry 97 97 96 Oxygen Delivery High Flow Therapy with Na High Flow Therapy with Na Oxygen Flow Rate 40 45 Fraction of Inspired Oxygen 32 32 08/09/23 22
[2023-08-10 14:38] LABS: Lactic Acid Reflex 1.5 mmol/L (0.7-2.0)
[2023-08-10 14:54] LABS: CRP 13.5 mg/dL (<1.0)
[2023-08-10 15:06] LABS: Procalcitonin 0.6 ng/mL
[2023-08-10 18:34] LABS: Glucose Point of Care 198 mg/dl (65-105)
[2023-08-10] MEDS: AMINO ACIDS 5%/D15W/E-LYTES/CA 2,000 ML with MULTIVITAMINS-12 INJ VIAL 1 2.5 ML, MULTIV... 70 ML IV CONT (18:43)
[2023-08-10] MEDS: LINEZOLID 600 MG/300 ML 600 MG/300 ML SOLN 300 MG IVPB (20:57)
[2023-08-10] MEDS: diphenhydrAMINE HCl INJ 50 MG/ML VIAL 25 MG IV PUSH (21:19)
[2023-08-10 21:30] LABS: Glucose Point of Care 159 mg/dl (65-105)
[2023-08-11] VITALS (14 sets, daily range): BP systolic 92–134; BP diastolic 55–91; PULSE 82–96; RESP 18–100; TEMP 36.7–37.8; O2SAT 94–100
[2023-08-11] MEDS: HEPARIN SOD/D5W 100 UNITS/ML 25,000 UNITS/250 ML BAG 21 UNITS IV CONT ×2 (00:35→12:25)
[2023-08-11 01:11] LABS: Glucose Point of Care 135 mg/dl (65-105)
[2023-08-11 06:12] LABS: Hematocrit 39.2 % (42.0-52.0); Hemoglobin 12.8 g/dL (14.0-18.0); Mean Corpuscular HGB Conc 32.7 g/dl (32-36); Mean Corpuscular Hemoglobin 30.5 pg (26-34); Mean Corpuscular Volume 93.3 fl (80-100); Mean Platelet Volume 11.1 fl (7.4-10.4); Platelet Count Result 287 k/mm3 (150-375); Red Cell Distribution Width 14.7 % (11.5-14.5); White Blood Count 20.6 K/mm3 (4.5-10.0)
[2023-08-11 06:21] LABS: Triglycerides 165 mg/dL (<150)
[2023-08-11] MEDS: MEROPENEM 1 GM/NS 100 ML 1 GM/100 ML BAG IVPB ×3 (06:43→21:23)
[2023-08-11] MEDS: CENTRAL LINE FLUSH 10 ML IV PUSH ×3 (06:44→21:23)
[2023-08-11] MEDS: LEVOTHYROXINE SODIUM INJ 100 MCG/5 ML VIAL 50 MCG IV PUSH (06:44)
[2023-08-11 06:58] LABS: Glucose Point of Care 167 mg/dl (65-105)
[2023-08-11 08:10] LABS: Band Neutrophils Percent 13 % (0-6); Eosinophils Absolute Manual 0.82 K/mm3 (0.02-0.5); Eosinophils Percent Manual 4 % (0-4); Large Platelets Present; Lymphocytes Absolute Manual 0.41 K/mm3 (1.1-4.5); Metamyelocytes Percent 3 %; Monocytes Absolute Manual 0.82 K/mm3 (0.1-0.90); Monocytes Percent Manual 4 % (3-9); Neutrophils Absolute Manual 17.92 K/mm3 (1.3-6.7); Neutrophils Percent Manual 74 % (46-73); Platelet Estimate Adequate (Adequate); Schistocytes None Seen (NORMAL); Total Cells Counted 100
[2023-08-11 08:11] LABS: Hypochromasia 2+ (NORMAL)
[2023-08-11] MEDS: ASPIRIN 81 MG CHEWABLE TABLET 162 MG PO (08:28)
[2023-08-11] MEDS: BUMETANIDE INJ 1 MG/4 ML VIAL 2 MG IV PUSH (08:29)
[2023-08-11] MEDS: FAT EMULSIONS IV 20% 250 ML 20.8 ML IVPB (08:29)
[2023-08-11] MEDS: LINEZOLID 600 MG/300 ML 600 MG/300 ML SOLN 300 MG IVPB ×2 (08:29→21:21)
[2023-08-11] MEDS: PANTOPRAZOLE SODIUM IV 40 MG VIAL IV PUSH (08:30)
--- NOTE | 2023-08-11 08:42 | PM.IMPN ---
Progress Note: A&P Assessment and Plan (1) Respiratory failure: Code(s): J96.90 - Respiratory failure, unspecified, unspecified whether with hypoxia or hypercapnia Status: Acute Assessment and Plan: multifactorial, fluid overload from ?HF, possible aspiration pneumonia vs atelectasis, CXR 08/09 showed mild pulm edema, small left pleural effusion, right opacities worsening, concerning for pneumonia--CT less concerning for pna MRSA swab sent and pending 08/09: Linezolid added to cover Enterococcus species growing from cholecystostomy tube, will also cover for any possible MRSA pneumonia Lasix and Bumex given, improved resp status resolved (2) Cholecystitis: Code(s): K81.9 - Cholecystitis, unspecified Status: Acute Assessment and Plan: cholecystostomy fluid drained and tube placed 08/06 Culture growing Enterococcus faecium, sensitivity pending Discussed with infectious disease pharmacist, initiated on linezolid 08/09 due to resistance patterns to vancomycin and ampicillin at this time (3) Aspiration pneumonia: Code(s): J69.0 - Pneumonitis due to inhalation of food and vomit Status: Acute Assessment and Plan: Unsure if this is an accurate diagnosis, however, currently being treated with meropenem, started 08/06 and linezolid started 08/09 (4) Pelvic abscess in male: Code(s): K65.1 - Peritoneal abscess Status: Acute Assessment and Plan: Pelvic drain placed 08/06 Culture growing prevotella species, currently being treated with meropenem (5) 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 Status: Acute Assessment and Plan: due to small colonic perforation, management per general surgery CT chest/abdomen/pelvis show stability of abscesses/fistula (6) Sepsis: Qualifiers: Acute renal failure type: unspecified Sepsis acute organ dysfunction status: with acute organ dysfunction Sepsis type: sepsis due to unspecified organism Severe sepsis acute organ dysfunction type: acute renal failure Severe sepsis shock status: without septic shock Qualified Code(s): A41.9 - Sepsis, unspecified organism; R65.20 - Severe sepsis without septic shock; N17.9 - Acute kidney failure, unspecified Code(s): A41.9 - Sepsis, unspecified organism Status: Acute Assessment and Plan: leuk slowly worsening, unsure of etiology, currently being treated for current infections with meropenem and linezolid check crp, pct, LA, blood cultures low grade fever noted overnight continues leuk still continues to rise, unsure of etiology, blood cultures NGTD, on linezolid + meropenem, source? add micafungin 08/11 (7) MOISÉS (acute kidney injury): Code(s): N17.9 - Acute kidney failure, unspecified Status: Acute Assessment and Plan: resolved, continue to monitor (8) Encephalopathy: Code(s): G93.40 - Encephalopathy, unspecified Status: Acute Assessment and Plan: Improving significantly, multifactorial etiology obviously resolved (9) Atrial fibrillation with rapid ventricular response: Code(s): I48.91 - Unspecified atrial fibrillation Status: Acute Assessment and Plan: stable and rate controlled off amio, cont heparin (10) Postoperative ileus: Code(s): K91.89 - Other postprocedural complications and disorders of digestive system; K56.7 - Ileus, unspecified Status: Acute Assessment and Plan: Management per general surgery, currently on ice chips, diet advancing as tolerated cont TPN (11) Essential (primary) hypertension: Code(s): I10 - Essential (primary) hypertension Status: Chronic Assessment and Plan: Blood pressures reviewed 08/11 (12) Hypothyroidism (acquired): Code(s): E03.9 - Hypothyroidism, unspecified Status: Chronic Assessment and Plan: Continue levothyroxine (13) Pro
--- NOTE | 2023-08-11 09:31 | WPDINTPN ---
Progress Note: A&P Assessment and Plan (1) Sepsis: Qualifiers: Sepsis type: sepsis due to unspecified organism Sepsis acute organ dysfunction status: with acute organ dysfunction Severe sepsis acute organ dysfunction type: acute renal failure Acute renal failure type: unspecified Severe sepsis shock status: without septic shock Qualified Code(s): A41.9 - Sepsis, unspecified organism; R65.20 - Severe sepsis without septic shock; N17.9 - Acute kidney failure, unspecified Code(s): A41.9 - Sepsis, unspecified organism Status: Acute Assessment and Plan: Secondary to peritonitis. Patient also appears to have consolidation of the lower lobes on the CT done which could be aspiration versus atelectasis Repeat CT scan of abdomen and pelvis done on 08/06 showed gallbladder distention and also fluid collection likely exudative 08/06 patient underwent cholecystostomy and drainage of peritoneal abscess-cultures have been sent IR placed drain in abscess and right and gallbladder which are in place Gallbladder drain culture grew Enterococcus Abscess drain culture grew prevotella Patient has been on Zyvox and meropenem Patient continues to have elevated WBC count and low-grade fevers 08/10 repeat blood cultures sent I will send a fungal blood culture and start empiric micafungin 08/09 CT scan shows multiple peritoneal fluid collections. Although patient has drain in place, may not provide adequate source control due to multiple fluid locations. Recommend re-evaluation for abdominal washout due to persistent elevated WBC low-grade fevers. 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 Status: Acute Assessment and Plan: General surgery plans to start TPN (5) Postoperative ileus: Code(s): K91.89 - Other postprocedural complications and disorders of digestive system; K56.7 - Ileus, unspecified Status: Acute Assessment and Plan: Patient on TPN Patient does appear to have bowel sounds on today's exam (6) Aspiration pneumonia: Code(s): J69.0 - Pneumonitis due to inhalation of food and vomit Status: Acute Assessment and Plan: See above (7) Hypotension: Code(s): I95.9 - Hypotension, unspecified Status: Acute Assessment and Plan: Resolved with IV fluids and no recurrence Echocardiogram showed 70% EF with grade 2 diastolic dysfunction and possible right ventricular dysfunction (8) MOISÉS (acute kidney injury): Code(s): N17.9 - Acute kidney failure, unspecified Status: Acute Assessment and Plan: Patient developed acute kidney injury postop. The patient did receive contrast on 08/04 which may also have been contributory Nephrology is following patient Losartan was discontinued CK level a mildly elevated Patient has been on cautious amount of IV fluids will be continued until patient started TPN Creatinine has now improved and normalized Monitor urine output electrolytes and creatinine (9) Atrial fibrillation with rapid ventricular response: Code(s): I48.91 - Unspecified atrial fibrillation Status: Acute Assessment and Plan: Now off of amiodarone infusion Currently on heparin infusion started by Cardiology Continue aspirin Consider switching to Lovenox no plan to take patient back to the operating room (10) CAD (coronary artery disease): Code(s): I25.10 - Atherosclerotic heart disease of [place] coronary artery without angina pectoris Status: Chronic Assessment and Plan: Continue aspirin (11) Encephalopathy: Code(s): G93.40 - Encephalopathy,
[2023-08-11 09:39] LABS: Alanine Aminotransferase 40 U/L (6-50); Albumin Level 2.7 g/dL (3.5-5.1); Alkaline Phosphatase 124 U/L (38-126); Anion Gap 7 mmol/L (8-16); Aspartate Amino Transferase 63 U/L (17-59); Bilirubin,Total 2.1 mg/dL (0.2-1.3); Blood Urea Nitrogen 32 mg/dL (9-20); Calcium 7.8 mg/dL (8.4-10.2); Carbon Dioxide 35 mmol/L (22-30); Chloride 96 mmol/L (98-107); Estimated CRCL calculation 76 ml/min; Estimated Glomerular Filt Rate > 60; Glucose 127 mg/dL (65-110); Magnesium 2.2 mg/dL (1.6-2.3); Phosphorus 2.4 mg/dL (2.5-4.5); Potassium 3.3 mmol/L (3.4-5.0); Sodium 138 mmol/L (137-145)
[2023-08-11] MEDS: MICAFUNGIN SODIUM 100 MG in SODIUM CHLORIDE 0.9% IV 100 ML IVPB (09:54)
[2023-08-11 12:05] LABS: Glucose Point of Care 161 mg/dl (65-105)
--- NOTE | 2023-08-11 12:24 | PM.PNGS ---
Progress Note: A&P Assessment and Plan (1) Protein-calorie malnutrition, severe: Code(s): E43 - Unspecified severe protein-calorie malnutrition Status: Acute Assessment and Plan: Patient to remain on TPN for now. Potassium is little low today at 3.3 will give him a 20mEq IV bolus of potassium today. Phosphorus is also a little low today at 2.4. Will give a 15 millimoles of potassium phosphate. (2) Pelvic abscess in male: Code(s): K65.1 - Peritoneal abscess Status: Acute Assessment and Plan: Due to what appears to be small-bowel perforation. Abscess is drained externally with catheter. Output appears to be consistent with bowel contents. Output is relatively low and the last 24hours was 100cc. Continue pelvic drain for now. Hopefully the hold the bowel will spontaneously close. Keep the patient NPO and on TPN for now. (3) Right inguinal hernia: Code(s): K40.90 - Unilateral inguinal hernia, without obstruction or gangrene, not specified as recurrent Status: Chronic Assessment and Plan: Repaired with open incision. Incision appears to be healing appropriately. Ecchymosis around the incision but no hematoma. Stable swelling of the scrotum and penis. Patient does not have PT and OT orders and so will go ahead and order that to start so that he can be mobilized out of bed to a chair at the very least. Subjective Subjective Date/Time Seen: 08/11/23 12:24 Interval history: Patient awake alert today. Seems to have slept better last night. Patient's family at bedside and states that he is much better in terms of his confusion today. Clinically he free much remains the same. White blood cell count increased from 19,000 to [address]86 today. No fever or tachycardia. Massage Therapy Instructor started micafungin for fungal coverage. Remains on TPN. Exam GI: Other: Abdomen is soft and nondistended. Right groin incision is intact with stable ecchymosis but no hematoma. No redness or drainage. Right upper quadrant cholecystostomy tube output is typical appearing bile without any purulence. Pelvic drain output is consistent with GI tract output. Output from pelvic drain is 100cc for the past 24hours. Output from the cholecystostomy tube is about 150cc the past 24hours. Objective Data Vital Signs Vital Signs: Vital Signs - 24 hr 08/10/23 13:04 08/10/23 14:00 08/10/23 16:00 Temperature 37.5 C 37.6 C 37.7 C H Pulse Rate 94 97 91 Respiratory Rate 23 H 23 H 30 H Blood Pressure 120/74 117/74 125/78 Pulse Oximetry 94 100 93 Oxygen Delivery 08/10/23 16:00 08/10/23 18:00 08/10/23 20:34 Temperature 37.7 C H Pulse Rate 88 Respiratory Rate 35 H Blood Pressure 122/73 Pulse Oximetry 94 96 Oxygen Delivery Room Air Room Air 08/10/23 20:00 08/10/23 20:00 08/10/23 20:00 Temperature 37.7 C H Pulse Rate 89 86 Respiratory Rate 26 H Blood Pressure 137/83 Pulse Oximetry 95 Oxygen Delivery Room Air 08/11/23 00:00 08/10/23 22:00 08/11/23 00:00 Temperature Pulse Rate 81 85 Respiratory Rate Blood Pressure Pulse Oximetry Oxygen Delivery Room Air 08/11/23 02:00 08/11/23 00:00 08/11/23 06:00 Temperature 36.7 C Pulse Rate 86 85 88 Respiratory Rate 18 Blood Pressure 92/55 L Pulse Oximetry 96 Oxygen Delivery 08/11/23 04:00 08/11/23 04:00 08/11/23 04:00 Temperature 37.4 C Pulse Rate 87 96 Respiratory Rate 18 Blood Pressure 96/59 L Pulse Oximetry 98 Oxygen Delivery Room Air 08/11/23 08:00 08/11/23 08:00 08/11/23 08:00 Temperature 37.7 C H Pulse Rate 84 82 90 Respiratory Rate 29 H 20 Blood Pressure 129/91 H Pulse Oximetry 94 95 Oxygen Delivery Room Air 08/11/23 09:57 08/11/23 11:32 08/11/23 12:00 Temperature 37.7 C H Pulse Rate 88 91 84 Respiratory Rate 22 H 27 H Blood Pressure 134/89 Pulse Oximetry 97 96 Oxygen Delivery Room Air Intake/Output Intake/Output:
[2023-08-11] MEDS: AMINO ACIDS 5%/D15W/E-LYTES/CA 2,000 ML with MULTIVITAMINS-12 INJ VIAL 1 2.5 ML, MULTIV... 70 ML IV CONT (12:26)
[2023-08-11] MEDS: KCL 20 MEQ/SW 100 ML 100 ML 50 MEQ IVPB (12:59)
[2023-08-11] MEDS: POTASSIUM PHOS,M-BASIC-D-BASIC 15 MMOL in SODIUM CHLORIDE 0.9% IV 250 ML 63.75 MMOL IVPB (14:45)
[2023-08-11 18:05] LABS: Glucose Point of Care 165 mg/dl (65-105)
[2023-08-11] MEDS: diphenhydrAMINE HCl INJ 50 MG/ML VIAL 25 MG IV PUSH (21:23)
[2023-08-11 22:14] LABS: Glucose Point of Care 168 mg/dl (65-105)
[2023-08-12] VITALS (17 sets, daily range): BP systolic 98–133; BP diastolic 61–92; PULSE 85–99; RESP 18–32; TEMP 36.1–37.9; O2SAT 92–96
[2023-08-12] LABS: Glucose Point of Care 168 mg/dl (65-105)
[2023-08-12] MEDS: HEPARIN SOD/D5W 100 UNITS/ML 25,000 UNITS/250 ML BAG 21 UNITS IV CONT ×2 (00:15→14:12)
--- NOTE | 2023-08-12 02:31 | PC.NURSE ---
Patient transferred to IMU room 203 at 0220. Report given to Brian Vora RN
--- NOTE | 2023-08-12 02:33 | PC.NURSE ---
This patient, Omar Ryan, was received from [ICU 6] on 08/12/23 at 0220. Patient/family oriented to unit policies and routines
[2023-08-12] MEDS: LEVOTHYROXINE SODIUM INJ 100 MCG/5 ML VIAL 50 MCG IV PUSH (05:03)
[2023-08-12] MEDS: MEROPENEM 1 GM/NS 100 ML 1 GM/100 ML BAG IVPB ×3 (05:03→21:16)
[2023-08-12] MEDS: CENTRAL LINE FLUSH 10 ML IV PUSH ×3 (05:03→21:16)
[2023-08-12 05:13] LABS: Basophils Absolute Auto 0.1 K/mm3 (0.0-0.1); Basophils Percent Auto 0.6 % (0.2-1.2); Eosinophils Absolute Auto 0.6 K/mm3 (0-0.3); Eosinophils Percent Auto 3.1 % (0-4.4); Hematocrit 38.1 % (42.0-52.0); Hemoglobin 12.2 g/dL (14.0-18.0); Immature Granulocyte Absolute 1.25 K/mm3 (0.00-0.031); Immature Granulocyte Percent A 6.5 % (0-0.5); Lymphocytes Absolute Auto 1.26 K/mm3 (0.9-3.2); Lymphocytes Percent Auto 6.6 % (18.3-44.2); Mean Corpuscular Hemoglobin 30.4 pg (26-34); Mean Platelet Volume 11.3 fl (7.4-10.4); Monocytes Absolute Auto 0.7 K/mm3 (0.1-0.6); Monocytes Percent Auto 3.7 % (2.6-8.5); Neutrophils Absolute Auto 15.2 K/mm3 (1.3-6.7); Neutrophils Percent Auto 79.5 % (45.5-73.1); Platelet Count Result 303 k/mm3 (150-375); Red Blood Count 4.01 M/mm3 (4.6-6.20); Red Cell Distribution Width 14.7 % (11.5-14.5); White Blood Count 19.1 K/mm3 (4.5-10.0)
[2023-08-12 05:22] LABS: Glucose Point of Care 158 mg/dl (65-105)
[2023-08-12 05:33] LABS: INR 1.2; Prothrombin Time 15.4 Seconds (11.1-14.7)
[2023-08-12 05:35] LABS: Alanine Aminotransferase 40 U/L (6-50); Albumin Level 2.7 g/dL (3.5-5.1); Alkaline Phosphatase 108 U/L (38-126); Anion Gap 4 mmol/L (8-16); Aspartate Amino Transferase 53 U/L (17-59); Bilirubin,Total 2.1 mg/dL (0.2-1.3); Blood Urea Nitrogen 30 mg/dL (9-20); Calcium 7.6 mg/dL (8.4-10.2); Carbon Dioxide 36 mmol/L (22-30); Chloride 95 mmol/L (98-107); Estimated CRCL calculation 77 ml/min; Estimated Glomerular Filt Rate > 60; Glucose 149 mg/dL (65-110); Magnesium 2.3 mg/dL (1.6-2.3); Phosphorus 2.8 mg/dL (2.5-4.5); Potassium 3.3 mmol/L (3.4-5.0); Sodium 135 mmol/L (137-145)
[2023-08-12 05:42] LABS: Transferrin 145 mg/dL (206-381)
[2023-08-12 05:46] LABS: Partial Thromboplastin Time 96.9 SECONDS (22.3-36.8)
[2023-08-12] MEDS: LINEZOLID 600 MG/300 ML 600 MG/300 ML SOLN 300 MG IVPB ×2 (08:32→20:50)
[2023-08-12] MEDS: BUMETANIDE INJ 1 MG/4 ML VIAL 2 MG IV PUSH (08:36)
[2023-08-12] MEDS: PANTOPRAZOLE SODIUM IV 40 MG VIAL IV PUSH (08:36)
[2023-08-12] MEDS: ASPIRIN 81 MG CHEWABLE TABLET 162 MG PO (08:36)
--- NOTE | 2023-08-12 09:23 | PM.IMPN ---
Progress Note: A&P Assessment and Plan (1) Sepsis: Qualifiers: Acute renal failure type: unspecified Sepsis acute organ dysfunction status: with acute organ dysfunction Sepsis type: sepsis due to unspecified organism Severe sepsis acute organ dysfunction type: acute renal failure Severe sepsis shock status: without septic shock Qualified Code(s): A41.9 - Sepsis, unspecified organism; R65.20 - Severe sepsis without septic shock; N17.9 - Acute kidney failure, unspecified Code(s): A41.9 - Sepsis, unspecified organism Status: Acute Assessment and Plan: Currently being treated for cholecystitis + pelvic abscesses with meropenem and linezolid, micafungin added 08/11, fungal cx pending low grade fever noted overnight continues, tmax 100.2 recommend further drains be placed for better source control (2) Cholecystitis: Code(s): K81.9 - Cholecystitis, unspecified Status: Acute Assessment and Plan: cholecystostomy fluid drained and tube placed 08/06 Culture growing Enterococcus faecium, sensitivity pending Discussed with infectious disease pharmacist, initiated on linezolid 08/09 due to resistance patterns to vancomycin and ampicillin at this time (3) Pelvic abscess in male: Code(s): K65.1 - Peritoneal abscess Status: Acute Assessment and Plan: Pelvic drain placed 08/06 Culture growing prevotella species, currently being treated with meropenem (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 Status: Acute Assessment and Plan: Due to small colonic perforation, management per general surgery CT chest/abdomen/pelvis show stability of abscesses/fistula (5) Respiratory failure: Code(s): J96.90 - Respiratory failure, unspecified, unspecified whether with hypoxia or hypercapnia Status: Acute Assessment and Plan: multifactorial, fluid overload from ?HF, possible aspiration pneumonia vs atelectasis, CXR 08/09 showed mild pulm edema, small left pleural effusion, right opacities worsening, concerning for pneumonia--CT less concerning for pna MRSA swab sent and pending 08/09: Linezolid added to cover Enterococcus species growing from cholecystostomy tube, will also cover for any possible MRSA pneumonia Lasix and Bumex given, improved resp status resolved (6) Aspiration pneumonia: Code(s): J69.0 - Pneumonitis due to inhalation of food and vomit Status: Acute Assessment and Plan: Unsure if this is an accurate diagnosis, however, currently being treated with meropenem, started 08/06 and linezolid started 08/09 CT scan negative for aspiration (7) MOISÉS (acute kidney injury): Code(s): N17.9 - Acute kidney failure, unspecified Status: Acute Assessment and Plan: Resolved, continue to monitor (8) Encephalopathy: Code(s): G93.40 - Encephalopathy, unspecified Status: Acute Assessment and Plan: Improving significantly, multifactorial etiology obviously Resolved (9) Atrial fibrillation with rapid ventricular response: Code(s): I48.91 - Unspecified atrial fibrillation Status: Acute Assessment and Plan: Stable and rate controlled off amio, cont heparin (10) Postoperative ileus: Code(s): K91.89 - Other postprocedural complications and disorders of digestive system; K56.7 - Ileus, unspecified Status: Acute Assessment and Plan: Management per general surgery, currently on ice chips, diet advancing as tolerated Cont TPN (11) Essential (primary) hypertension: Code(s): I10 - Essential (primary) hypertension Status: Chronic Assessment and Plan: Blood pressures reviewed 08/12 (12) Hypothyroidism (acquired): Code(s): E03.9 - Hypothyroidism, unspecified Status: Chronic Assessment and Plan: Continue levothyroxine (13) Protein-calorie malnutrition, severe:
[2023-08-12] MEDS: ACETAMINOPHEN 500 MG TABLET PO (09:44)
[2023-08-12] MEDS: POTASSIUM CHLORIDE 20 MEQ ER TABLET 40 MEQ PO (09:45)
[2023-08-12] MEDS: MICAFUNGIN SODIUM 100 MG in SODIUM CHLORIDE 0.9% IV 100 ML IVPB (09:45)
[2023-08-12 11:32] LABS: Glucose Point of Care 162 mg/dl (65-105)
[2023-08-12] MEDS: AMINO ACIDS 5%/D15W/E-LYTES/CA 2,000 ML with MULTIVITAMINS-12 INJ VIAL 1 2.5 ML, MULTIV... 70 ML IV CONT (12:05)
[2023-08-12] MEDS: FAT EMULSIONS IV 20% 250 ML 20.83 ML IVPB (12:10)
--- NOTE | 2023-08-12 13:09 | PM.PNGS ---
Progress Note: A&P Assessment and Plan (1) Pelvic abscess in male: Code(s): K65.1 - Peritoneal abscess Status: Acute Assessment and Plan: Pelvic abscess on most recent CT appears well drained with a few smaller fluid collections as well that may be abscesses. Continue IV antibiotics. Continue to monitor the LLQ percutaneous drain for now. WBC up to 20.6 over the weekend and he was started on IV micafungin yesterday. WBC down to 19.1 today, discussed with Dr. Armijo, will repeat labs again tomorrow. 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 Continue to monitor the drain. Will start clear liquids and continue TPN today. Will have to monitor output from perc drain after starting a liquid diet. (3) Right inguinal hernia: Code(s): K40.90 - Unilateral inguinal hernia, without obstruction or gangrene, not specified as recurrent Status: Chronic Assessment and Plan: Postop day 10 from open right inguinal hernia repair with mesh. Incision appears to be healing well. Continue PT/OT and work on increasing activity as tolerated. He was able to get up to the chair with assistance but had to be lifted back to bed. (4) Protein-calorie malnutrition, severe: Code(s): E43 - Unspecified severe protein-calorie malnutrition Status: Acute Assessment and Plan: Continue TPN and will allow clear liquids for now. (5) Paroxysmal atrial fibrillation: Code(s): I48.0 - Paroxysmal atrial fibrillation Status: Chronic Assessment and Plan: Still on a heparin infusion. (6) Cholecystitis: Code(s): K81.9 - Cholecystitis, unspecified Status: Acute Assessment and Plan: S/p cholecystostomy tube placement on 08/06. Bile cultures grew enterococcus. Continue IV antibiotics and monitor drain output. Plan I have discussed the patient's case and plan of care with Dr. Armijo. Subjective Subjective Date/Time Seen: 08/12/23 10:09 Post Op day: 10 (Right inguinal hernia repair with mesh) Patient reports: no new complaints, flatus, bowel movement and fever (100.2F tmax last night) Interval history: Chart reviewed. Patient seen in the IMU today. There is a sitter at the bedside. Per nursing staff, he has been having visual hallucinations overnight and trying to pull at his tubes/lines. This morning, he is alert and oriented x 3. He answers all my questions appropriately. I did not witness any hallucinations or restlessness. He was appropriate. He denies any abdominal pain. He had a BM last night and had one this morning. Denies any nausea, vomiting, or bloating. He got up to the chair with staff with the franco steady and had to be lifted back to bed with the wilda. He still has a Weathers catheter in place. His LLQ perc drain has had 50 cc output overnight and the cholecystostomy tube had 150 cc output overnight. No acute issues overnight per nursing and patient. Still on TPN and NPO. Review of Systems Constitutional: Constitutional: Reports no additional constitutional complaints, Denies chills, Reports fever(s), Denies headache(s) and Reports weakness Cardiovascular: Cardiovascular: Reports no additional cardiovascular complaints, Denies chest pain and Denies pedal edema Respiratory: Respiratory: Reports no additional respiratory complaints, Denies cough and Denies dyspnea Gastrointestinal: Gastrointestinal: Reports as per HPI and Reports no additional gastrointestinal complaints Exam Const: General: comfortable and no acute distress Orientation/consciousness: patient oriented x3 Resp: Effort & Inspection: normal respiratory effort Auscultation: clear to auscultation bilaterally Cardio: Rate: regular rate Rhythm: regular rhythm GI: Inspection: other (mildly distended) GI Palp: Yes Soft to
[2023-08-12 16:53] LABS: Glucose Point of Care 191 mg/dl (65-105)
[2023-08-13] VITALS (14 sets, daily range): BP systolic 125–139; BP diastolic 67–77; PULSE 84–100; RESP 18–26; TEMP 36–37.1; O2SAT 93–98
[2023-08-13 01:50] LABS: Glucose Point of Care 173 mg/dl (65-105)
[2023-08-13] MEDS: MEROPENEM 1 GM/NS 100 ML 1 GM/100 ML BAG IVPB ×3 (05:55→20:37)
[2023-08-13] MEDS: CENTRAL LINE FLUSH 10 ML IV PUSH ×3 (05:55→20:37)
[2023-08-13 05:56] LABS: Hematocrit 37.3 % (42.0-52.0); Hemoglobin 12.1 g/dL (14.0-18.0); Mean Corpuscular HGB Conc 32.4 g/dl (32-36); Mean Corpuscular Hemoglobin 30.3 pg (26-34); Mean Corpuscular Volume 93.5 fl (80-100); Mean Platelet Volume 11.2 fl (7.4-10.4); Platelet Count Result 338 k/mm3 (150-375); Red Blood Count 3.99 M/mm3 (4.6-6.20); Red Cell Distribution Width 14.9 % (11.5-14.5); White Blood Count 19.5 K/mm3 (4.5-10.0)
[2023-08-13] MEDS: LEVOTHYROXINE SODIUM INJ 100 MCG/5 ML VIAL 50 MCG IV PUSH (05:56)
[2023-08-13 06:03] LABS: Alanine Aminotransferase 44 U/L (6-50); Albumin Level 2.7 g/dL (3.5-5.1); Alkaline Phosphatase 131 U/L (38-126); Anion Gap 3 mmol/L (8-16); Aspartate Amino Transferase 61 U/L (17-59); Bilirubin,Total 2.3 mg/dL (0.2-1.3); Blood Urea Nitrogen 30 mg/dL (9-20); Calcium 7.4 mg/dL (8.4-10.2); Carbon Dioxide 39 mmol/L (22-30); Chloride 93 mmol/L (98-107); Estimated CRCL calculation 69 ml/min; Estimated Glomerular Filt Rate > 60; Glucose 161 mg/dL (65-110); Magnesium 2.3 mg/dL (1.6-2.3); Phosphorus 2.8 mg/dL (2.5-4.5); Potassium 3.5 mmol/L (3.4-5.0); Sodium 135 mmol/L (137-145); Triglycerides 121 mg/dL (<150)
[2023-08-13 06:09] LABS: Partial Thromboplastin Time 110.5 SECONDS (22.3-36.8)
--- NOTE | 2023-08-13 09:44 | PM.IMPN ---
Progress Note: A&P Assessment and Plan (1) Sepsis: Qualifiers: Acute renal failure type: unspecified Sepsis acute organ dysfunction status: with acute organ dysfunction Sepsis type: sepsis due to unspecified organism Severe sepsis acute organ dysfunction type: acute renal failure Severe sepsis shock status: without septic shock Qualified Code(s): A41.9 - Sepsis, unspecified organism; R65.20 - Severe sepsis without septic shock; N17.9 - Acute kidney failure, unspecified Code(s): A41.9 - Sepsis, unspecified organism Status: Acute Assessment and Plan: Currently being treated for cholecystitis + pelvic abscesses with meropenem and linezolid, micafungin added 08/11, fungal cx pending recommend further drains be placed for better source control, leukocytosis continues to fluctuate Afebrile overnight (2) Cholecystitis: Code(s): K81.9 - Cholecystitis, unspecified Status: Acute Assessment and Plan: cholecystostomy fluid drained and tube placed 08/06 Culture growing Enterococcus faecium, sensitivity pending Discussed with infectious disease pharmacist, initiated on linezolid 08/09 due to resistance patterns to vancomycin and ampicillin at this time (3) Pelvic abscess in male: Code(s): K65.1 - Peritoneal abscess Status: Acute Assessment and Plan: Pelvic drain placed 08/06 Culture growing prevotella species, currently being treated with meropenem (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 Status: Acute Assessment and Plan: Due to small colonic perforation, management per general surgery CT chest/abdomen/pelvis show stability of abscesses/fistula (5) Respiratory failure: Code(s): J96.90 - Respiratory failure, unspecified, unspecified whether with hypoxia or hypercapnia Status: Acute Assessment and Plan: multifactorial, fluid overload from ?HF, possible aspiration pneumonia vs atelectasis, CXR 08/09 showed mild pulm edema, small left pleural effusion, right opacities worsening, concerning for pneumonia--CT less concerning for pna MRSA swab sent and pending 08/09: Linezolid added to cover Enterococcus species growing from cholecystostomy tube, will also cover for any possible MRSA pneumonia Lasix and Bumex given, improved resp status resolved (6) Aspiration pneumonia: Code(s): J69.0 - Pneumonitis due to inhalation of food and vomit Status: Acute Assessment and Plan: Unsure if this is an accurate diagnosis, however, currently being treated with meropenem, started 08/06 and linezolid started 08/09 CT scan negative for aspiration, continue antibiotics (7) MOISÉS (acute kidney injury): Code(s): N17.9 - Acute kidney failure, unspecified Status: Acute Assessment and Plan: Resolved, continue to monitor (8) Encephalopathy: Code(s): G93.40 - Encephalopathy, unspecified Status: Acute Assessment and Plan: Improving significantly, multifactorial etiology obviously Resolved (9) Atrial fibrillation with rapid ventricular response: Code(s): I48.91 - Unspecified atrial fibrillation Status: Acute Assessment and Plan: Stable and rate controlled off amio, cont heparin (10) Postoperative ileus: Code(s): K91.89 - Other postprocedural complications and disorders of digestive system; K56.7 - Ileus, unspecified Status: Acute Assessment and Plan: Management per general surgery, currently on ice chips, diet advancing as tolerated Cont TPN (11) Essential (primary) hypertension: Code(s): I10 - Essential (primary) hypertension Status: Chronic Assessment and Plan: Blood pressures reviewed 08/13 (12) Hypothyroidism (acquired): Code(s): E03.9 - Hypothyroidism, unspecified Status: Chronic Assessment and Plan: Continue levothyroxine (13) Protein-calorie malnu
[2023-08-13] MEDS: ASPIRIN 81 MG CHEWABLE TABLET 162 MG PO (10:48)
[2023-08-13] MEDS: BUMETANIDE INJ 1 MG/4 ML VIAL 2 MG IV PUSH (10:48)
[2023-08-13] MEDS: MICAFUNGIN SODIUM 100 MG in SODIUM CHLORIDE 0.9% IV 100 ML IVPB (10:49)
[2023-08-13] MEDS: PANTOPRAZOLE SODIUM IV 40 MG VIAL IV PUSH (10:49)
--- NOTE | 2023-08-13 11:18 | PCNFU ---
Nutrition Follow-Up Complete: Swallowing Difficulties as related to mentation/risk of aspiration as evidenced by NPO. Goal:Meet estimated nutritional needs Pt current nutrition is Clear liquids, TPN running at 70ml/hr providing 1693kcals, 83g protein. Nutrition recommendation: Continue with current plan of care Last recorded weight is 106.3 kg. Bowel Motility: +BM 08/11 Labs Reviewed: Hgb:12.1, HCT:37.3, Alb:2.7, NA:135, BUN:30 Meds Noted:novolog Skin: no skin breakdown Additional Notes: Pt continues on TPN at 70ml/hr per RD recommendation. Clear liquids started, did ok yesterday, not eating much today per family. Recommend to continue with current plan of care. Will monitor weight, labs, skin, meds, TPN every Saturday and Saturday.
--- NOTE | 2023-08-13 11:54 | PM.PNGS ---
Progress Note: A&P Assessment and Plan (1) Encephalopathy: Code(s): G93.40 - Encephalopathy, unspecified Status: Acute Assessment and Plan: Somnolence seems to be getting worse. Patient continues to have elevated white blood cell count. Last 2 CT scans showed several collections, possibly abscesses in the abdomen. Will repeat CT scan today with contrast. Possibly 1 or 2 of these may seem more obvious as a source of ongoing infection and can be drained percutaneously. Discussed this with patient's family who agree. 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 (3) Cholecystitis: Code(s): K81.9 - Cholecystitis, unspecified Status: Acute Assessment and Plan: Resolved with cholecystostomy tube. (4) Protein-calorie malnutrition, severe: Code(s): E43 - Unspecified severe protein-calorie malnutrition Status: Acute Assessment and Plan: Dietitian recommendations appreciated. Continue TPN and lipids at current rate. (5) Anasarca: Code(s): R60.1 - Generalized edema Status: Acute Assessment and Plan: Continues to receive Bumex daily. (6) Atrial fibrillation with rapid ventricular response: Code(s): I48.91 - Unspecified atrial fibrillation Status: Acute Assessment and Plan: Anticoagulated with heparin drip (7) Right inguinal hernia: Code(s): K40.90 - Unilateral inguinal hernia, without obstruction or gangrene, not specified as recurrent Status: Chronic Assessment and Plan: Repaired 08/02/2023. No evidence of recurrence or wound problems. No hematoma. Subjective Subjective Date/Time Seen: 08/13/23 11:54 Post Op day: #11 Patient reports: pain is less (Denies any abdominal pain) and other (Patient is somnolent again today. Arouses and will answer questions. Denies any pain nausea bloating.) Review of Systems Review of Systems: All systems reviewed & are unremarkable except as noted in HPI and below (HPI, difficult to ascertain due to somnolence.) Exam Const: General: comfortable, no acute distress, lethargic, tired appearing and edematous Orientation/consciousness: lethargic GI: Inspection: Abdominal wall edema, distended, incision (Right inguinal incision healing well, enteric fluid per pigtail) and other (Bile draining from cholecystostomy tube.) GI Palp: Yes Soft to palpation (Abdomen softer than it has been), No Tenderness to palpation present (GI) (No abdominal tenderness noted at all today), No Guarding due to palpation present (GI), No Hernia present and No Palpable mass present : Scrotum: no ecchymosis and edematous Urinary Catheter: Urinary Catheter: patent and draining Neuro: General: Unable to assess gait and other (Somnolent) Cranial nerves: Yes CN's II-XII intact bilaterally and Yes facial symmetry Speech: normal speech Extrem: General: edema bilateral Objective Data Vital Signs Vital Signs: Vital Signs - 24 hr 08/12/23 12:00 08/12/23 12:00 08/12/23 12:00 Temperature 37.1 C Pulse Rate 99 96 Respiratory Rate 32 H Blood Pressure 123/72 Pulse Oximetry 94 Oxygen Delivery Room Air 08/12/23 14:00 08/12/23 13:40 08/12/23 15:42 Temperature 36.8 C Pulse Rate 92 88 Respiratory Rate 24 H Blood Pressure 98/61 L Pulse Oximetry 95 Oxygen Delivery Room Air 08/12/23 16:00 08/12/23 16:00 08/12/23 18:00 Temperature Pulse Rate 93 92 Respiratory Rate Blood Pressure Pulse Oximetry Oxygen Delivery Room Air 08/12/23 19:46 08/12/23 20:00 08/12/23 22:00 Temperature 36.9 C Pulse Rate 90 94 92 Respiratory Rate 24 H Blood Pressure 133/92 H Pulse Oximetry 93 Oxygen Delivery 08/12/23 20:00 08/12/23 23:56 08/12/23 23:57 Temperature Pulse Rate 88 Respiratory Rate Blood Pressure Pulse Oximetry Oxyge
--- NOTE | 2023-08-13 11:55 | PCOTNOTE ---
Per RN, ok to attempt treatment. Patient's family present, verbalized he is having a very difficult time waking up this morning. Patient's family verbalized doctor was in and will be ordering a CT. Family requested therapy attempt back at a later time due to he usually is more alert in the afternoon.
[2023-08-13 12:04] LABS: Glucose Point of Care 188 mg/dl (65-105)
--- NOTE | 2023-08-13 12:55 | PCOTNOTE ---
Attempted again this P.M. Patient still having increased difficulty with arousal. RN and Patient's family present at this time and aware. Patient is unable to participate in functional activity.
[2023-08-13] MEDS: LINEZOLID 600 MG/300 ML 600 MG/300 ML SOLN 300 MG IVPB ×2 (13:25→20:37)
[2023-08-13] MEDS: FAT EMULSIONS IV 20% 250 ML 20.83 ML IVPB (13:26)
[2023-08-13] MEDS: AMINO ACIDS 5%/D15W/E-LYTES/CA 2,000 ML with MULTIVITAMINS-12 INJ VIAL 1 2.5 ML, MULTIV... 70 ML IV CONT (13:27)
[2023-08-13 13:49] LABS: Partial Thromboplastin Time 91.6 SECONDS (22.3-36.8)
[2023-08-13] MEDS: HEPARIN SOD/D5W 100 UNITS/ML 25,000 UNITS/250 ML BAG 19 UNITS IV CONT (15:29)
[2023-08-13 18:45] LABS: Glucose Point of Care 169 mg/dl (65-105)
[2023-08-13 19:08] LABS: Partial Thromboplastin Time 39.2 SECONDS (22.3-36.8)
[2023-08-13 20:06] LABS: Glucose Point of Care 160 mg/dl (65-105)
[2023-08-13 20:17] LABS: Partial Thromboplastin Time 83.6 SECONDS (22.3-36.8)
[2023-08-14] VITALS (13 sets, daily range): BP systolic 132–143; BP diastolic 50–98; PULSE 85–97; RESP 18–26; TEMP 36.3–37.2; O2SAT 90–95
[2023-08-14 00:39] LABS: Glucose Point of Care 192 mg/dl (65-105)
[2023-08-14 05:23] LABS: Hematocrit 36.9 % (42.0-52.0); Hemoglobin 11.9 g/dL (14.0-18.0); Mean Corpuscular HGB Conc 32.2 g/dl (32-36); Mean Corpuscular Hemoglobin 30.8 pg (26-34); Mean Corpuscular Volume 95.6 fl (80-100); Mean Platelet Volume 11.2 fl (7.4-10.4); Platelet Count Result 375 k/mm3 (150-375); Red Blood Count 3.86 M/mm3 (4.6-6.20); Red Cell Distribution Width 14.9 % (11.5-14.5); White Blood Count 18.8 K/mm3 (4.5-10.0)
[2023-08-14 05:37] LABS: Alanine Aminotransferase 50 U/L (6-50); Albumin Level 2.8 g/dL (3.5-5.1); Alkaline Phosphatase 148 U/L (38-126); Anion Gap 2 mmol/L (8-16); Aspartate Amino Transferase 58 U/L (17-59); Bilirubin,Total 1.8 mg/dL (0.2-1.3); Blood Urea Nitrogen 28 mg/dL (9-20); Calcium 7.6 mg/dL (8.4-10.2); Carbon Dioxide 39 mmol/L (22-30); Chloride 93 mmol/L (98-107); Estimated CRCL calculation 69 ml/min; Estimated Glomerular Filt Rate > 60; Glucose 158 mg/dL (65-110); Magnesium 2.5 mg/dL (1.6-2.3); Potassium 3.7 mmol/L (3.4-5.0); Sodium 134 mmol/L (137-145)
[2023-08-14] MEDS: MEROPENEM 1 GM/NS 100 ML 1 GM/100 ML BAG IVPB ×3 (05:55→22:44)
[2023-08-14] MEDS: CENTRAL LINE FLUSH 10 ML IV PUSH ×3 (05:56→22:44)
[2023-08-14] MEDS: LEVOTHYROXINE SODIUM INJ 100 MCG/5 ML VIAL 50 MCG IV PUSH (05:56)
--- NOTE | 2023-08-14 08:45 | PCOTNOTE ---
Per RN, Patient having difficulty with staying aroused awake this A.M. Patient is being scheduled to have additional drains placed this P.M. Patient is not appropriate for therapy services this date.
--- NOTE | 2023-08-14 09:06 | PCPTNOTE ---
Attempted to see patient for PT, however patient unable to stay awake long enough to participate in therapy.
[2023-08-14] MEDS: MICAFUNGIN SODIUM 100 MG in SODIUM CHLORIDE 0.9% IV 100 ML IVPB (10:59)
[2023-08-14] MEDS: BUMETANIDE INJ 1 MG/4 ML VIAL 2 MG IV PUSH (10:59)
[2023-08-14] MEDS: PANTOPRAZOLE SODIUM IV 40 MG VIAL IV PUSH (11:00)
[2023-08-14] MEDS: LINEZOLID 600 MG/300 ML 600 MG/300 ML SOLN 300 MG IVPB ×2 (11:03→21:10)
--- NOTE | 2023-08-14 11:49 | PM.PNGS ---
Progress Note: A&P Assessment and Plan (1) Encephalopathy: Code(s): G93.40 - Encephalopathy, unspecified Status: Acute Assessment and Plan: Somnolence continues. WBC dowsn some today. CT reviewed and discussed with Dr. Armijo. Plan to proceed with percutaneous drainage of multiple of the fluid collections in Radiology today. Heparin drip on hold since 2 am this morning for the procedure. 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 (3) Cholecystitis: Code(s): K81.9 - Cholecystitis, unspecified Status: Acute Assessment and Plan: Resolved with cholecystostomy tube. (4) Protein-calorie malnutrition, severe: Code(s): E43 - Unspecified severe protein-calorie malnutrition Status: Acute Assessment and Plan: Dietitian recommendations appreciated. Continue TPN and lipids at current rate. Keep NPO for procedure today. (5) Anasarca: Code(s): R60.1 - Generalized edema Status: Acute Assessment and Plan: Continues to receive Bumex daily. (6) Atrial fibrillation with rapid ventricular response: Code(s): I48.91 - Unspecified atrial fibrillation Status: Acute Assessment and Plan: Anticoagulated with heparin drip, which is on hold for perc drain placement (7) Right inguinal hernia: Code(s): K40.90 - Unilateral inguinal hernia, without obstruction or gangrene, not specified as recurrent Status: Chronic Assessment and Plan: Repaired 08/02/2023. No evidence of recurrence or wound problems. No signs of infection. Plan I have discussed the patient's case and plan of care with Dr. Armijo. Subjective Subjective Date/Time Seen: 08/14/23 11:49 Patient reports: no new complaints, flatus, bowel movement and afebrile Interval history: Patient seen today. Still very somnolent. He is arousable and answers all orientation questions appropriately, but quickly falls back to sleep. He was unable to work with therapy yesterday due to somnolence. CT reviewed from yesterday. Review of Systems Review of Systems: All systems reviewed & are unremarkable except as noted in HPI and below Exam Const: General: lethargic and tired appearing Orientation/consciousness: patient oriented x3 Resp: Effort & Inspection: normal respiratory effort Auscultation: clear to auscultation bilaterally Cardio: Rate: regular rate Rhythm: regular rhythm GI: Inspection: Abdominal wall edema and distended GI Palp: Yes Soft to palpation and Yes Tenderness to palpation present (GI) (tenderness mostly in the left abdomen with guarding) Other: LLQ pigtail drain with enteric-appearing output RUQ cholecystostomy tube with bilious output : Male General Exam: No hernia Scrotum: scrotal swelling Other: Right groin incision dry and healing well with some swelling and ecchymosis near the incisions, repair intact Urinary Catheter: Urinary Catheter: patent and draining Extrem: General: no calf tenderness and edema bilateral Objective Data Vital Signs Vital Signs: Vital Signs - 24 hr 08/13/23 12:00 08/13/23 12:00 08/13/23 16:00 Temperature 97.3 F L 97.7 F Pulse Rate 91 95 Respiratory Rate 26 H 24 H Blood Pressure 128/69 127/71 Pulse Oximetry 94 97 Oxygen Delivery Room Air 08/13/23 16:00 08/13/23 12:00 08/13/23 14:00 Temperature Pulse Rate 97 95 Respiratory Rate Blood Pressure Pulse Oximetry Oxygen Delivery Room Air 08/13/23 16:00 08/13/23 18:00 08/13/23 19:42 Temperature 98.8 F Pulse Rate 91 90 90 Respiratory Rate 18 Blood Pressure 139/75 Pulse Oximetry 98 Oxygen Delivery 08/13/23 20:00 08/13/23 20:00 08/13/23 22:00 Temperature Pulse Rate 91 97 Respiratory Rate Blood Pressure Pulse Oximetry Oxygen Delivery Room Air
[2023-08-14] MEDS: AMINO ACIDS 5%/D15W/E-LYTES/CA 2,000 ML with MULTIVITAMINS-12 INJ VIAL 1 2.5 ML, MULTIV... 70 ML IV CONT (13:00)
[2023-08-14] MEDS: FAT EMULSIONS IV 20% 250 ML 20.83 ML IVPB (13:00)
--- NOTE | 2023-08-14 13:56 | PM.IMPN ---
Progress Note: A&P Assessment and Plan (1) Sepsis: Qualifiers: Acute renal failure type: unspecified Sepsis acute organ dysfunction status: with acute organ dysfunction Sepsis type: sepsis due to unspecified organism Severe sepsis acute organ dysfunction type: acute renal failure Severe sepsis shock status: without septic shock Qualified Code(s): A41.9 - Sepsis, unspecified organism; R65.20 - Severe sepsis without septic shock; N17.9 - Acute kidney failure, unspecified Code(s): A41.9 - Sepsis, unspecified organism Status: Acute Assessment and Plan: Currently being treated for cholecystitis + pelvic abscesses Tx with meropenem, linezolid. micafungin added 08/11 BCx 08/06 negative. BCx 08/10 NGTD Fungal cx 08/[address] A/P 08/13 showing multiple intraperitoneal abscesses similar to 08/09 worsening mass involving the right inguinal canal and right scrotum. Afebrile overnight. Leukocytosis continues to fluctuate Recommend further drain placement to be done today for better source control, (2) Cholecystitis: Code(s): K81.9 - Cholecystitis, unspecified Status: Acute Assessment and Plan: cholecystostomy fluid drained and tube placed 08/06 Culture growing Enterococcus species but unable to perform sensitibvities. 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 Status: Acute Assessment and Plan: Due to small colonic perforation, management per general surgery CT abdomen/pelvis 08/13 show stability of intraperitoneal abscesses but worsening right inguinal mass (5) Respiratory failure: Code(s): J96.90 - Respiratory failure, unspecified, unspecified whether with hypoxia or hypercapnia Status: Acute Assessment and Plan: multifactorial, fluid overload from ?HF, possible aspiration pneumonia vs atelectasis, CXR 08/09 showed mild pulm edema, small left pleural effusion, right opacities worsening, concerning for pneumonia--CT less concerning for pna MRSA swab sent and negative 08/09: Linezolid added to cover Enterococcus species growing from cholecystostomy tube Lasix then Bumex was given with improved resp status. Weaned to room air. He remains on Bumex. Would hold for now (6) Aspiration pneumonia: Code(s): J69.0 - Pneumonitis due to inhalation of food and vomit Status: Acute Assessment and Plan: Unsure if this is an accurate diagnosis, however, currently being treated with meropenem, started 08/06 and linezolid started 08/09 CT scan negative for aspiration ST evaluation 08/07 recommended soft and bite sized and mildly thickened liquids. Currently NPO and on TPN. Continue antibiotics (7) MOISÉS (acute kidney injury): Code(s): N17.9 - Acute kidney failure, unspecified Status: Acute Assessment and Plan: Resolved, continue to monitor (8) Encephalopathy: Code(s): G93.40 - Encephalopathy, unspecified Status: Acute Assessment and Plan: Improving today. Multifactorial etiology obviously Resolved (9) Atrial fibrillation with rapid ventricular response: Code(s): I48.91 - Unspecified atrial fibrillation Status: Acute Assessment and Plan: Stable and rate controlled off Amio Cont heparin (10) Postoperative ileus: Code(s): K91.89 - Other postprocedural complications and disorders of digestive system; K56.7 - Ileus, unspecified Status: Acute Assessment and Plan: Management per general surgery Having BMs. Currently NPO Cont TPN (11) Es
[2023-08-14 19:11] LABS: Glucose Point of Care 142 mg/dl (65-105)
[2023-08-15] VITALS (25 sets, daily range): BP systolic 88–152; BP diastolic 61–91; PULSE 91–137; RESP 20–34; TEMP 36.8–38.4; O2SAT 90–100
[2023-08-15 00:12] LABS: Glucose Point of Care 182 mg/dl (65-105)
--- NOTE | 2023-08-15 05:19 | PC.NURSE ---
0450 Patients respirations appear more labored. Large amount of thick, white, madsen sputum noted and suctioned. O2 sats 85-88% on RA. Nasal cannula at 2l started. Moderate amount of soft brown stool noted, jeff care provided. Dr. Foster informed of change in resp. status. Orders received for ABGS
[2023-08-15 05:33] LABS: Alveolar/Arterial O2 Gradient 68.1 mmHg; Base Excess ABG 7.5 mEq/l (+/-2.0); Carboxyhemoglobin 1.7 % THb (0-2.0); Fractional Inspired Oxygen 28 %; Methemoglobin ABG 0.3 %THb (0-1.5); Oxygen Content ABG 16.2 %vol (16.0-22.0); Oxygen Saturation ABG 88.5 % (95.0-100.0); PO2 FiO2 Ratio Arterial Blood 2.07 %; Reduced Hemoglobin 11.9 %THb (0-5.0); Total Hemoglobin 13.4 g/dL (12.0-18.0); pH ABG 7.367 (7.350-7.450)
[2023-08-15 05:36] LABS: PCO2 ABG 62.3 mmHg (35.0-45.0)
[2023-08-15 05:37] LABS: Device NASAL CANNULA; Modified Allen's Test Pass; Oxyhemoglobin 86.1 % THb (90.0-100.0); Site Drawn RIGHT RADIAL
[2023-08-15 05:41] LABS: Basophils Absolute Auto 0.1 K/mm3 (0.0-0.1); Basophils Percent Auto 0.4 % (0.2-1.2); Eosinophils Absolute Auto 0.2 K/mm3 (0-0.3); Hematocrit 39.3 % (42.0-52.0); Hemoglobin 12.3 g/dL (14.0-18.0); Immature Granulocyte Absolute 0.33 K/mm3 (0.00-0.031); Lymphocytes Absolute Auto 0.97 K/mm3 (0.9-3.2); Lymphocytes Percent Auto 5.8 % (18.3-44.2); Mean Corpuscular HGB Conc 31.3 g/dl (32-36); Mean Corpuscular Hemoglobin 30.6 pg (26-34); Mean Corpuscular Volume 97.8 fl (80-100); Mean Platelet Volume 10.9 fl (7.4-10.4); Monocytes Absolute Auto 1.1 K/mm3 (0.1-0.6); Monocytes Percent Auto 6.7 % (2.6-8.5); Neutrophils Absolute Auto 13.9 K/mm3 (1.3-6.7); Neutrophils Percent Auto 84.1 % (45.5-73.1); Platelet Count Result 400 k/mm3 (150-375); Red Blood Count 4.02 M/mm3 (4.6-6.20); Red Cell Distribution Width 14.6 % (11.5-14.5); White Blood Count 16.6 K/mm3 (4.5-10.0)
[2023-08-15 05:51] LABS: Alanine Aminotransferase 47 U/L (6-50); Alkaline Phosphatase 171 U/L (38-126); Anion Gap 4 mmol/L (8-16); Aspartate Amino Transferase 58 U/L (17-59); Bilirubin,Total 1.5 mg/dL (0.2-1.3); Blood Urea Nitrogen 31 mg/dL (9-20); Calcium 7.8 mg/dL (8.4-10.2); Carbon Dioxide 38 mmol/L (22-30); Chloride 92 mmol/L (98-107); Estimated CRCL calculation 77 ml/min; Estimated Glomerular Filt Rate > 60; Glucose 178 mg/dL (65-110); Potassium 4.3 mmol/L (3.4-5.0); Sodium 134 mmol/L (137-145)
--- NOTE | 2023-08-15 07:30 | PC.NURSE ---
This patient, Omar Ryan, was transferred to [icu 2 ] on 08/15/23 at 0720. Personal belongings sent with patient. Report given to [Alina JACKSON ]. Appropriate documentation sent with patient. Dr Paz notified of patient's decline on Bipap, brought to ICU. RN updating family.
[2023-08-15 07:40] LABS: Alveolar/Arterial O2 Gradient 225.3 mmHg; Base Excess ABG 2.6 mEq/l (+/-2.0); Carboxyhemoglobin 1.4 % THb (0-2.0); Fractional Inspired Oxygen 60 %; HCO3 ABG 34.7 mEq/l (22.0-26.0); Methemoglobin ABG 0.4 %THb (0-1.5); Oxygen Saturation ABG 93.8 % (95.0-100.0); Oxyhemoglobin 92.8 % THb (90.0-100.0); PO2 ABG 91.2 mmHg (80.0-100.0); PO2 FiO2 Ratio Arterial Blood 1.52 %; Reduced Hemoglobin 5.4 %THb (0-5.0); Total Hemoglobin 13.7 g/dL (12.0-18.0)
[2023-08-15 07:42] LABS: Device NON-INVASIVE VENT; Modified Allen's Test Pass; PCO2 ABG 101.2 mmHg (35.0-45.0); Site Drawn RIGHT RADIAL; pH ABG 7.153 (7.350-7.450)
[2023-08-15 07:43] LABS: Non-Invasive Expiratory Pressure 6 CMH2O; Non-Invasive Inspiratory Pressure 12 CMH2O; Non-Invasive Vent Rate 10 /MIN
--- NOTE | 2023-08-15 08:06 | PM.IMPN ---
Progress Note: A&P Assessment and Plan (1) Respiratory failure: Code(s): J96.90 - Respiratory failure, unspecified, unspecified whether with hypoxia or hypercapnia Status: Acute Assessment and Plan: Patient had acute respiratory failure earlier felt to be multifactorial due to fluid overload, possible aspiration pneumonia vs atelectasis. CXR 08/09 showed mild pulm edema, small left pleural effusion, right opacities worsening concerning for pneumonia--CT less concerning for PNA. MRSA swab negative 08/09: Linezolid added to cover Enterococcus species growing from cholecystostomy tube Lasix then Bumex was given with improved resp status. Weaned to room air. He remained on Bumex. On the morning of 08/15, patient developed acute respiratory distress. ABG 7.37/62/58 so BiPAP ordered Repeat ABG 7.15/101/91 so patient intubated. CXR reviewed showing diffuse lung disease c/w edema vs PNA vs atelectasis Cumulative fluid balance +2.7L with excellent UOP past few days. Consider pulmonary edema. Consider ARDS. Consider aspiration but NPO so felt less likely. Advance diuretics. Appreciate station usher input (2) Sepsis: Qualifiers: Sepsis type: sepsis due to unspecified organism Sepsis acute organ dysfunction status: with acute organ dysfunction Severe sepsis acute organ dysfunction type: acute renal failure Acute renal failure type: unspecified Severe sepsis shock status: without septic shock Qualified Code(s): A41.9 - Sepsis, unspecified organism; R65.20 - Severe sepsis without septic shock; N17.9 - Acute kidney failure, unspecified Code(s): A41.9 - Sepsis, unspecified organism Status: Acute Assessment and Plan: Currently being treated for cholecystitis + pelvic abscesses Tx with meropenem, linezolid. Micafungin added 08/11 UCx 08/05, 08/06 negative GB Cx 08/06 growing enterococcus Abscess Cx 08/06 Prevotella BCx 08/06 negative. MRSA nasal swab 08/09 negative BCx 08/10 NGTD Fungal cx 08/[address] A/P 08/13 showing multiple intraperitoneal abscesses similar to 08/09 with worsening mass involving the right inguinal canal and right scrotum. Multiple Abd drains placed 08/14 and cultures obtained. Afebrile overnight. Leukocytosis trending down Hopefully will start to improve now that we have source control BP soft now and levophed ordered. (3) Cholecystitis: Code(s): K81.9 - Cholecystitis, unspecified Status: Acute Assessment and Plan: Cholecystostomy fluid drained and tube placed 08/06 Culture growing Enterococcus species but unable to perform sensitivities. Discussed with infectious disease pharmacist, initiated on linezolid 08/09 due to resistance patterns Continue Linezolid for now (4) Pelvic abscess in male: Code(s): K65.1 - Peritoneal abscess Status: Acute Assessment and Plan: Pelvic drain placed 08/06 Culture growing prevotella species, currently being treated with meropenem Multiple new abdominal drains placed 08/14 and cultures obtained Continue Meropenem, Linezolid and micafungin. 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 As above (6) Aspiration pneumonia: Code(s): J69.0 - Pneumonitis due to inhalation of food and vomit Status: Acute Assessment and Plan: Unsure if this is an accurate diagnosis, however, currently being treated with meropenem, started 08/06 and linezolid started 08/[address] chest as above ST evaluation 08/07 recommended soft and bite sized and mildly thickened liquids. Currently NPO and on TPN. Continue antibiotics (7) MOISÉS (acute kidney injury): Code(s): N17.9 - Acute kid
[2023-08-15] MEDS: MEROPENEM 1 GM/NS 100 ML 1 GM/100 ML BAG IVPB ×3 (08:28→23:26)
[2023-08-15] MEDS: BUMETANIDE INJ 1 MG/4 ML VIAL 2 MG IV PUSH (08:29)
[2023-08-15] MEDS: CENTRAL LINE FLUSH 10 ML IV PUSH ×3 (08:29→23:26)
[2023-08-15] MEDS: ASPIRIN 81 MG CHEWABLE TABLET 162 MG PO (08:29)
[2023-08-15] MEDS: LEVOTHYROXINE SODIUM INJ 100 MCG/5 ML VIAL 50 MCG IV PUSH (08:29)
[2023-08-15] MEDS: PANTOPRAZOLE SODIUM IV 40 MG VIAL IV PUSH (08:29)
[2023-08-15] MEDS: MICAFUNGIN SODIUM 100 MG in SODIUM CHLORIDE 0.9% IV 100 ML IVPB (08:30)
[2023-08-15] MEDS: LINEZOLID 600 MG/300 ML 600 MG/300 ML SOLN 300 MG IVPB ×2 (08:31→22:00)
[2023-08-15 09:11] LABS: Alveolar/Arterial O2 Gradient 405.1 mmHg; Base Excess ABG 5.8 mEq/l (+/-2.0); Fractional Inspired Oxygen 100 %; HCO3 ABG 31.4 mEq/l (22.0-26.0); Oxygen Content ABG 18.6 %vol (16.0-22.0); Oxygen Saturation ABG 99.6 % (95.0-100.0); Oxyhemoglobin 98.3 % THb (90.0-100.0); PCO2 ABG 49.8 mmHg (35.0-45.0); PO2 ABG 258.1 mmHg (80.0-100.0); PO2 FiO2 Ratio Arterial Blood 2.58 %; pH ABG 7.418 (7.350-7.450)
[2023-08-15] MEDS: PROPOFOL IV EMULSION 100 ML 6.47 MG IV CONT (09:15)
[2023-08-15] MEDS: ETOMIDATE 20 MG/10 ML AMPUL IV PUSH (09:16)
[2023-08-15] MEDS: NOREPINEPHRINE 8 MG/D5W 250 ML 8 MG/250 ML BAG 9.38 MG IV CONT (09:16)
[2023-08-15] MEDS: SUCCINYLCHOLINE CHLORIDE 20 MG/ML 10 ML VIAL 100 MG IV PUSH (09:16)
[2023-08-15 09:17] LABS: Magnesium 2.5 mg/dL (1.6-2.3); Phosphorus 3.5 mg/dL (2.5-4.5); Triglycerides 177 mg/dL (<150)
--- NOTE | 2023-08-15 09:42 | WPDINTPN ---
Progress Note: A&P Assessment and Plan (1) Sepsis: Qualifiers: Sepsis type: sepsis due to unspecified organism Sepsis acute organ dysfunction status: with acute organ dysfunction Severe sepsis acute organ dysfunction type: acute renal failure Acute renal failure type: unspecified Severe sepsis shock status: without septic shock Qualified Code(s): A41.9 - Sepsis, unspecified organism; R65.20 - Severe sepsis without septic shock; N17.9 - Acute kidney failure, unspecified Code(s): A41.9 - Sepsis, unspecified organism Status: Acute Assessment and Plan: Secondary to peritonitis. Patient also appears to have consolidation of the lower lobes on the CT done which could be aspiration versus atelectasis Repeat CT scan of abdomen and pelvis done on 08/06 showed gallbladder distention and also fluid collection likely exudative 08/06 patient underwent cholecystostomy and drainage of peritoneal abscess-cultures have been sent IR placed drain in abscess and right and gallbladder which are in place Gallbladder drain culture grew Enterococcus Abscess drain culture grew prevotella Patient was started on on Zyvox and meropenem Patient continues to have elevated WBC count and low-grade fevers 08/09 CT scan shows multiple peritoneal fluid collections. Although patient has drain in place, may not provide adequate source control due to multiple fluid locations. Recommend re-evaluation for abdominal washout due to persistent elevated WBC low-grade fevers. 08/10 repeat blood cultures sent 08/11 fungal blood culture were sent and patient was started on empiric micafungin 08/[address] of abdomen showed multiple intraperitoneal abscesses and worsening mass in right inguinal canal and right scrotum suggestive of infected hematoma 08/14 multiple (5) drains for placed in abdomen Continue broad-spectrum antibiotics and antifungals Treatment form of Zyvox meropenem and micafungin (2) Acute respiratory failure: Code(s): J96.00 - Acute respiratory failure, unspecified whether with hypoxia or hypercapnia Status: Acute Assessment and Plan: Acute hypoxic and hypercarbic respiratory failure. Chest x-ray shows diffuse lung disease Pulmonary edema versus ARDS. ? Aspiration gastric contents although patient was NPO Hold TPN. Continue diuresis Antibiotics as above Low tidal volume management ABG and chest x-ray reviewed (3) Shock: Code(s): R57.9 - Shock, unspecified Status: Acute Assessment and Plan: Patient was hemodynamically stable prior to intubation but now blood pressure dropped. 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 Status: Acute Assessment and Plan: General surgery plans to start TPN (7) Postoperative ileus: Code(s): K91.89 - Other postprocedural complications and disorders of digestive system; K56.7 - Ileus, unspecified Status: Acute Assessment and Plan: Patient on TPN which is currently on hold due to volume overload (8) Aspiration pneumonia: Code(s): J69.0 - Pneumonitis due to inhalation of food and vomit Status: Acute Assessment and Plan: See above (9) Hypotension: Code(s): I95.9 - Hypotension, unspecified Status: Acute Assessment and Plan: Resolved with IV fluids and no recurrence Echocardiogram showed 70% EF with grade 2 diastolic dysfunction and possible right ventricular dysfunction (10) MOISÉS (acute kidney injury): Code(s): N17.9 - Acute kidney failure, unspecified Status
[2023-08-15 10:24] LABS: NT Pro B Type Natriuretic Pept 1130 pg/mL (19.9-100)
[2023-08-15 10:52] LABS: Arterial Blood Gas PEEP 10 cmH2O; Arterial Blood Gas Tidal Volume 450 ml; Arterial Blood Gas Vent Mode CMV; Arterial Blood Gas Ventilator rate 24 /MIN; Device VENTILATOR; Modified Allen's Test Pass; Site Drawn RIGHT RADIAL
--- NOTE | 2023-08-15 11:08 | PM.PNGS ---
Progress Note: A&P Assessment and Plan (1) Acute respiratory failure: Qualifiers: Respiratory failure complication: hypoxia and hypercapnia Qualified Code(s): J96.01 - Acute respiratory failure with hypoxia; J96.02 - Acute respiratory failure with hypercapnia Code(s): J96.00 - Acute respiratory failure, unspecified whether with hypoxia or hypercapnia Status: Acute Assessment and Plan: Patient re intubated and now has excellent oxygenation. He is sedated with propofol all and stable on mechanical ventilator. Chest x-ray suggests either pulmonary edema or developing ARDS. Discussed with Dr. Peacock. Both of us feel that most likely this is some pulmonary edema. Urine output was very high the last 2 days. Continue IV Bumex and diuresis. (2) Hypotension: Qualifiers: Hypotension type: postprocedural hypotension Qualified Code(s): I95.81 - Postprocedural hypotension Code(s): I95.9 - Hypotension, unspecified Status: Acute Assessment and Plan: Currently on low-dose of Levophed. 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 Appears stable and improving. (4) Abdominal abscess: Status: Acute Assessment and Plan: Multiple intra-abdominal abscesses drained yesterday percutaneously with imaging guidance. Will get repeat CT scan chest and abdomen today. This will allow assessment of drain placement as well as assess for possible new fluid collection or injury from drain placement. Discussed thoroughly with Dr. Peacock. (5) Protein-calorie malnutrition, severe: Code(s): E43 - Unspecified severe protein-calorie malnutrition Status: Acute Assessment and Plan: TPN on hold due to evidence of fluid overload as likely cause of acute respiratory failure (6) Atrial fibrillation with rapid ventricular response: Code(s): I48.91 - Unspecified atrial fibrillation Status: Acute Assessment and Plan: Heparin still on hold. Probably restart later today. Subjective Subjective Date/Time Seen: 08/15/23 11:08 Patient reports: other (Patient developed acute respiratory failure and was reintubated early this morning.) Interval history: Patient had image guided drainage with placement of pigtail catheter of multiple intra-abdominal abscesses yesterday in the late afternoon. Four additional abscesses were drained. Apparently, patient was fine until about midnight. For unknown reasons, he developed increasing difficulty with breathing eventually resulting in intubation. He was also on Levophed but this has been weaned to 2 micrograms/kilogram per minute. His oxygen saturations intubated and on 100% oxygen are good and the FiO2 is being decreased. Chest x-ray suggests pulmonary edema or potential ARDS. Review of Systems Review of Systems: ROS unobtainable: Yes unobtainable due to endotracheal tube Exam Const: General: patient obtunded (On propofol and intubated) Orientation/consciousness: patient obtunded GI: Inspection: distended and incision (Clean and dry, looks normal) GI Palp: Yes Soft to palpation (Although abdomen is distended, fairly soft, more so than it was 2 or 3 days) : Male General Exam: Yes ecchymosis (Around groin incision), Yes edema, No erythema, No hernia and Yes other (Right inguinal incision looks normal. No significant hematoma or erythema) Penis: Yes edematous and Yes other (Retracted in to edematous, elevated scrotum) Scrotum: no ecchymosis, edematous, not erythematous, no inguinal hernias and other (No evidence scrotal hematoma) Urinary Catheter: Urinary Catheter: patent and draining Extrem: General: edema Objective Data Vital Signs Vital Signs: Vital Signs - 24 hr 08/14/23 12:00 08/14/23 12:00 08/14/23 18:00 Temperature 36.4 C 36.8 C Pulse Rate 97 88 Respiratory Rate 24 H 22 H Blood Pres
[2023-08-15 12:31] LABS: Glucose Point of Care 125 mg/dl (65-105)
[2023-08-15] MEDS: MINERAL OIL/WHITE PETROLATUM OINTMENT 1 APPLIC EACH EYE ×2 (13:51→23:26)
[2023-08-15] MEDS: ACETAMINOPHEN ELIXIR 325 MG/10.15 ML UDC 650 MG PO ×2 (13:55→23:07)
[2023-08-15] MEDS: HEPARIN SOD/D5W 100 UNITS/ML 25,000 UNITS/250 ML BAG 10 UNITS IV CONT (16:11)
[2023-08-15 18:35] LABS: Glucose Point of Care 120 mg/dl (65-105)
[2023-08-15] MEDS: PROPOFOL IV EMULSION 100 ML 9.71 MG IV CONT (19:35)
[2023-08-15 22:51] LABS: Partial Thromboplastin Time 48.8 SECONDS (22.3-36.8)
[2023-08-15] MEDS: HEPARIN SODIUM 5,000 UNITS/ML VIAL 4000 UNITS IV PUSH (23:07)
[2023-08-16] VITALS (35 sets, daily range): BP systolic 67–151; BP diastolic 53–93; PULSE 89–120; RESP 8–26; TEMP 37.7–38.4; O2SAT 95–100
[2023-08-16 00:47] LABS: Glucose Point of Care 146 mg/dl (65-105)
[2023-08-16 05:50] LABS: Alveolar/Arterial O2 Gradient 160.1 mmHg; Base Excess ABG 8.2 mEq/l (+/-2.0); Carboxyhemoglobin 0.2 % THb (0-2.0); Fractional Inspired Oxygen 40 %; HCO3 ABG 31.1 mEq/l (22.0-26.0); Methemoglobin ABG 0.4 %THb (0-1.5); Oxygen Saturation ABG 97.2 % (95.0-100.0); Oxyhemoglobin 95.5 % THb (90.0-100.0); PCO2 ABG 37.1 mmHg (35.0-45.0); PO2 ABG 82.4 mmHg (80.0-100.0); PO2 FiO2 Ratio Arterial Blood 2.06 %; Reduced Hemoglobin 3.9 %THb (0-5.0); Total Hemoglobin 13.4 g/dL (12.0-18.0)
[2023-08-16 05:51] LABS: Arterial Blood Gas Vent Mode CMV; Arterial Blood Gas Ventilator rate 24 /MIN; Device VENTILATOR; Modified Allen's Test Unable to perform; Site Drawn RIGHT RADIAL; pH ABG 7.541 (7.350-7.450)
[2023-08-16 05:52] LABS: Arterial Blood Gas PEEP 10 cmH2O; Arterial Blood Gas Tidal Volume 450 ml
[2023-08-16 06:02] LABS: Hematocrit 36.5 % (42.0-52.0); Hemoglobin 11.8 g/dL (14.0-18.0); Mean Corpuscular HGB Conc 32.3 g/dl (32-36); Mean Corpuscular Volume 95.8 fl (80-100); Mean Platelet Volume 10.8 fl (7.4-10.4); Platelet Count Result 437 k/mm3 (150-375); Red Blood Count 3.81 M/mm3 (4.6-6.20); Red Cell Distribution Width 14.7 % (11.5-14.5)
[2023-08-16] MEDS: CENTRAL LINE FLUSH 10 ML IV PUSH ×3 (06:06→20:39)
[2023-08-16] MEDS: LEVOTHYROXINE SODIUM INJ 100 MCG/5 ML VIAL 50 MCG IV PUSH (06:08)
[2023-08-16] MEDS: MEROPENEM 1 GM/NS 100 ML 1 GM/100 ML BAG IVPB ×3 (06:09→21:47)
[2023-08-16 06:13] LABS: Partial Thromboplastin Time 72.4 SECONDS (22.3-36.8)
[2023-08-16 06:21] LABS: Alanine Aminotransferase 57 U/L (6-50); Albumin Level 2.9 g/dL (3.5-5.1); Alkaline Phosphatase 226 U/L (38-126); Anion Gap 4 mmol/L (8-16); Aspartate Amino Transferase 73 U/L (17-59); Blood Urea Nitrogen 42 mg/dL (9-20); Calcium 7.7 mg/dL (8.4-10.2); Carbon Dioxide 35 mmol/L (22-30); Chloride 93 mmol/L (98-107); Estimated CRCL calculation 57 ml/min; Estimated Glomerular Filt Rate > 60; Glucose 124 mg/dL (65-110); Magnesium 2.5 mg/dL (1.6-2.3); Phosphorus 3.3 mg/dL (2.5-4.5); Potassium 4.1 mmol/L (3.4-5.0); Sodium 132 mmol/L (137-145)
--- NOTE | 2023-08-16 08:16 | WPDINTPN ---
Progress Note: A&P Assessment and Plan (1) Sepsis: Qualifiers: Sepsis type: sepsis due to unspecified organism Sepsis acute organ dysfunction status: with acute organ dysfunction Severe sepsis acute organ dysfunction type: acute renal failure Acute renal failure type: unspecified Severe sepsis shock status: without septic shock Qualified Code(s): A41.9 - Sepsis, unspecified organism; R65.20 - Severe sepsis without septic shock; N17.9 - Acute kidney failure, unspecified Code(s): A41.9 - Sepsis, unspecified organism Status: Acute Assessment and Plan: Secondary to peritonitis. Patient also appears to have consolidation of the lower lobes on the CT done which could be aspiration versus atelectasis Repeat CT scan of abdomen and pelvis done on 08/06 showed gallbladder distention and also fluid collection likely exudative 08/06 patient underwent cholecystostomy and drainage of peritoneal abscess-cultures have been sent IR placed drain in abscess and right and gallbladder which are in place Gallbladder drain culture grew Enterococcus Abscess drain culture grew prevotella Patient was started on on Zyvox and meropenem Patient continues to have elevated WBC count and low-grade fevers 08/09 CT scan shows multiple peritoneal fluid collections. Although patient has drain in place, may not provide adequate source control due to multiple fluid locations. Recommend re-evaluation for abdominal washout due to persistent elevated WBC low-grade fevers. 08/10 repeat blood cultures sent 08/11 fungal blood culture were sent and patient was started on empiric micafungin 08/[address] of abdomen showed multiple intraperitoneal abscesses and worsening mass in right inguinal canal and right scrotum suggestive of infected hematoma 08/14 multiple (5) drains for placed in abdomen 08/[address] scan IMPRESSION: 1. Multiple abdominal abscesses with interval improvement status post percutaneous drainage placement. 2. Small pleural effusions. 3. Bibasilar airspace opacities, consistent with atelectasis versus pneumonia. 4. Stable mass involving the right inguinal canal, probable infected hematoma. 08/16 will send repeat blood cultures Continue broad-spectrum antibiotics and antifungals Treatment form of Zyvox meropenem and micafungin at this time (2) Acute respiratory failure: Qualifiers: Respiratory failure complication: hypoxia and hypercapnia Qualified Code(s): J96.01 - Acute respiratory failure with hypoxia; J96.02 - Acute respiratory failure with hypercapnia Code(s): J96.00 - Acute respiratory failure, unspecified whether with hypoxia or hypercapnia Status: Acute Assessment and Plan: Acute hypoxic and hypercarbic respiratory failure. Chest x-ray shows diffuse lung disease most likely Improved with diuretics. ABG chest x-ray and ventilator settings reviewed Decrease PEEP to 8 and respiratory rate to 18 Will plan for sedation holiday and SBT today Hold further diuresis Antibiotics as above Low tidal volume management (3) Shock: Code(s): R57.9 - Shock, unspecified Status: Acute Assessment and Plan: Patient was hemodynamically stable prior to intubation but now blood pressure dropped. 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
--- NOTE | 2023-08-16 08:51 | PM.IMPN ---
Progress Note: A&P Assessment and Plan (1) Respiratory failure: Code(s): J96.90 - Respiratory failure, unspecified, unspecified whether with hypoxia or hypercapnia Status: Acute Assessment and Plan: Patient had acute respiratory failure earlier felt to be multifactorial due to fluid overload, possible aspiration pneumonia vs atelectasis. CXR 08/09 showed mild pulm edema, small left pleural effusion, right opacities worsening concerning for pneumonia--CT less concerning for PNA. MRSA swab negative 08/09: Linezolid added to cover Enterococcus species growing from cholecystostomy tube Lasix then Bumex was given with improved resp status. Weaned to room air. He remained on IV Bumex. ------ On the morning of 08/15, patient developed acute respiratory distress. ABG 7.37/62/58 so BiPAP ordered Repeat ABG 7.15/101/91 so patient intubated. CXR reviewed showing diffuse lung disease c/w edema vs PNA vs atelectasis Cumulative fluid balance at that time was +2.7L with excellent UOP past few days prior to admission. Consider pulmonary edema. Consider ARDS. Consider aspiration but NPO so felt less likely. Continues to have excellent UOP. Bumex on hold now. Sedation being weaned. Possible extubation. Appreciate superintendent custodian janitor input (2) Sepsis: Qualifiers: Sepsis type: sepsis due to unspecified organism Sepsis acute organ dysfunction status: with acute organ dysfunction Severe sepsis acute organ dysfunction type: acute renal failure Acute renal failure type: unspecified Severe sepsis shock status: without septic shock Qualified Code(s): A41.9 - Sepsis, unspecified organism; R65.20 - Severe sepsis without septic shock; N17.9 - Acute kidney failure, unspecified Code(s): A41.9 - Sepsis, unspecified organism Status: Acute Assessment and Plan: Currently being treated for cholecystitis + pelvic abscesses Tx with meropenem, linezolid. Micafungin added 08/11 UCx 08/05, 08/06 negative GB Cx 08/06 growing enterococcus but unable to perform sensitivities Abscess Cx 08/06 Prevotella that is beta-lactamase positive BCx 08/06 negative. MRSA nasal swab 08/09 negative BCx 08/10 NGTD Fungal cx 08/[address] A/P 08/13 showing multiple intraperitoneal abscesses similar to 08/09 with worsening mass involving the right inguinal canal and right scrotum. Multiple Abd drains placed 08/14 and cultures pending Febrile overnight. Leukocytosis still trending down Was on Levophed for soft BP 08/15 but weaned off 08/16 Hopefully will start to improve now that we have better source control BP soft now and levophed ordered. (3) Cholecystitis: Code(s): K81.9 - Cholecystitis, unspecified Status: Acute Assessment and Plan: Cholecystostomy fluid drained and tube placed 08/06 Culture growing Enterococcus species but unable to perform sensitivities. Discussed with infectious disease pharmacist, initiated on linezolid 08/09 due to resistance patterns Continue Linezolid for now (4) Pelvic abscess in male: Code(s): K65.1 - Peritoneal abscess Status: Acute Assessment and Plan: Pelvic drain placed 08/06 Culture growing prevotella species, currently being treated with meropenem Multiple (5) new abdominal drains placed 08/14 and cultures obtained Continue Meropenem, Linezolid and micafungin. 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
[2023-08-16] MEDS: MICAFUNGIN SODIUM 100 MG in SODIUM CHLORIDE 0.9% IV 100 ML IVPB (09:01)
[2023-08-16] MEDS: ASPIRIN 81 MG CHEWABLE TABLET 162 MG PO (09:01)
[2023-08-16] MEDS: LINEZOLID 600 MG/300 ML 600 MG/300 ML SOLN 300 MG IVPB ×2 (09:01→20:39)
[2023-08-16] MEDS: MINERAL OIL/WHITE PETROLATUM OINTMENT 1 APPLIC EACH EYE (09:02)
[2023-08-16] MEDS: PANTOPRAZOLE SODIUM IV 40 MG VIAL IV PUSH (09:02)
[2023-08-16] MEDS: ACETAMINOPHEN ELIXIR 325 MG/10.15 ML UDC 650 MG PO (10:10)
--- NOTE | 2023-08-16 10:21 | PCNFU ---
Nutrition Follow-Up Complete: Swallowing Diffuculties as related to mentation/risk of aspiration as evidenced by NPO. Meet estimated nutritional needs - Not being met with TPN on hold Goal: Pt current nutrition is NPO. Nutrition recommendation: Restart TPN Cinmix E 02/04 @ goal rate 70 ml/h: 1683 kcal, 84 g protein, 1930 ml total volume. Last recorded weight is 107.9 kg. Bowel Motility: No BMs charted Labs Reviewed: Hgb 11.8, Hct 36.5, Alb 2.9, Na 132, BUN 42, Glu 146 Meds Noted: Sedation off. Bumex Skin: Incision Additional Notes: Pt on mechanical ventilation today. TPN on hold. No sedation. Discussed with Dr Madonna chaves weight, labs, skin, meds, TPN every Saturday and Saturday.
[2023-08-16 10:24] LABS: Ammonia < 9 umol/L (9-30)
--- NOTE | 2023-08-16 10:31 | PCOTNOTE ---
Pt. currently intubated in ICU-2. Per Hospitalist. Dr. Murry, pt. likely to be extubated soon. Informed hospitalist to re-order therapy services when pt. able to participate safely.
[2023-08-16 10:32] LABS: Add Urine Microscopic? YES; Appearance Urine Cloudy (Clear); Bacteria Urine None Seen /hpf; Bilirubin Urine 1+ (Negative); Blood Urine Trace (Negative); Color Urine Dark Yellow (Yellow); Glucose Urine UA Negative (Negative); Ketones Urine Trace mg/dL (Negative); Leukocyte Esterase Ur Trace LEU/UL (Negative); Nitrate Urine Negative (Negative); Protein Urine 1+ mg/dL (Negative); Specific Grav Ur 1.029 (1.001-1.035); Squamous Epithelial Cell Urine Occasional /hpf (Few); pH Urine 5.5 (5.0-9.0)
[2023-08-16] MEDS: HEPARIN SOD/D5W 100 UNITS/ML 25,000 UNITS/250 ML BAG 14 UNITS IV CONT (10:54)
[2023-08-16 11:03] LABS: Glucose Point of Care 146 mg/dl (65-105)
[2023-08-16] MEDS: NOREPINEPHRINE 8 MG/D5W 250 ML 8 MG/250 ML BAG 9.38 MG IV CONT (12:09)
[2023-08-16 12:14] LABS: Partial Thromboplastin Time 64.1 SECONDS (22.3-36.8)
[2023-08-16] MEDS: HEPARIN SODIUM 5,000 UNITS/ML VIAL 3500 UNITS IV PUSH (12:23)
--- NOTE | 2023-08-16 13:54 | PCPTNOTE ---
pt is now in ICU and on ventilator--received d/c PT orders. If PT is to resume, need new orders.
--- NOTE | 2023-08-16 14:16 | PM.PNGS ---
Progress Note: A&P Assessment and Plan (1) Abdominal abscess: Status: Acute Assessment and Plan: Multiple drains in place. Output from each drain has dropped off significantly from when placed. At present, only drain 5. Which is anterior mid abdominal, has purulent appearing output. This output is small. Only 5 cc yesterday. Most of the drainage remains from the left lower quadrant drain, now labile 3., and is the original pelvic drain with enteric content draining previously. Today the drainage looks more like old blood and ascites with more of a rust look. No evidence of a complication from the procedure. Patient still has questionable infected hematoma in the right groin. Exam does not suggest this. Discussed all aspects of patient's care with Dr. Peacock. Also had lengthy discussion of his condition and plans with patient's family. (2) Acute respiratory failure: Qualifiers: Respiratory failure complication: hypoxia and hypercapnia Qualified Code(s): J96.01 - Acute respiratory failure with hypoxia; J96.02 - Acute respiratory failure with hypercapnia Code(s): J96.00 - Acute respiratory failure, unspecified whether with hypoxia or hypercapnia Status: Acute Assessment and Plan: Patient given a trial this morning but was not strong enough to be extubated. Sedation is off when I saw him and he was following commands although still sleepy. (3) Protein-calorie malnutrition, severe: Code(s): E43 - Unspecified severe protein-calorie malnutrition Status: Acute Assessment and Plan: Discussed with Dr. Peacock. I will restart his TPN and lipids today at their formal level. It appears he has diuresed significantly. 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 Output does not appear to be enteric today but more of a rust color. Continue to follow. (5) Encephalopathy: Code(s): G93.40 - Encephalopathy, unspecified Status: Acute Assessment and Plan: Multifactorial, still very lethargic although does awaken and follow some commands. (6) MOISÉS (acute kidney injury): Code(s): N17.9 - Acute kidney failure, unspecified Status: Acute Assessment and Plan: Creatinine up to 1.1 today from 0.8 yesterday. Could be from diuresis. Will follow. (7) Atrial fibrillation with rapid ventricular response: Code(s): I48.91 - Unspecified atrial fibrillation Status: Acute Assessment and Plan: Back on heparin drip with no evidence of bleeding. APTT therapeutic Subjective Subjective Date/Time Seen: 08/16/23 14:16 Post Op day: 2 (Postop day 2 after drainage of multiple abdominal abscesses) Patient reports: fever (Low-grade fevers persist) and other (No longer receiving sedation and responds to verbal and mechanical stimulation, still on ventilator) Review of Systems Review of Systems: ROS unobtainable: Yes unobtainable due to endotracheal tube Exam Const: General: comfortable, lethargic and tired appearing GI: Inspection: distended, incision (Drain 5 has small output but appears purulent rest nonpurulent), no visible herniation and other (Multiple drains, most with little output, pelvic drain having most output) GI Palp: No Firmness to palpation present (GI), Yes Tenderness to palpation present (GI) and No Rigid due to palpation Auscultation: Hypoactive bowel sounds present Urinary Catheter: Urinary Catheter: patent and draining (Weathers catheter changed today) Skin: General skin exam: normal color Lesions: no lesions Rashes: no rashes Neuro: General: moves all extremities Extrem: General: edema (Less edematous) Objective Data Vital Signs Vital Signs: Vital Signs - 24 hr 08/15/23 14:55 08/15/23 16:00 08/15/23 16:00 Temperature 38.1 C H 38.1 C H Pulse Rate 102 H Respiratory Rate 24 H Blood Pressure 115/66 Pulse Oximetry 98 O
--- NOTE | 2023-08-16 14:54 | PCDIET ---
Nutrition recommendation: Restart TPN Clinmix E 02/04 @ goal rate 70 ml/h: 1683 kcal, 84 g protein, 1930 ml total volume. Last recorded weight is 107.9 kg. Labs reviewed.
[2023-08-16] MEDS: AMINO ACIDS 5%/D15W/E-LYTES/CA 2,000 ML with MULTIVITAMINS-12 INJ VIAL 1 2.5 ML, MULTIV... 70 ML IV CONT (15:00)
[2023-08-16] MEDS: FAT EMULSIONS IV 20% 250 ML 20.83 ML IVPB (15:01)
[2023-08-16 17:29] LABS: Glucose Point of Care 144 mg/dl (65-105)
[2023-08-16 17:45] LABS: Partial Thromboplastin Time 79.7 SECONDS (22.3-36.8)
[2023-08-17] VITALS (23 sets, daily range): BP systolic 86–116; BP diastolic 58–83; PULSE 78–111; RESP 15–24; TEMP 37.4–38.5; O2SAT 98–100
[2023-08-17 00:25] LABS: Partial Thromboplastin Time 68.3 SECONDS (22.3-36.8)
[2023-08-17 00:30] LABS: Glucose Point of Care 166 mg/dl (65-105)
[2023-08-17] MEDS: HEPARIN SODIUM 5,000 UNITS/ML VIAL 3500 UNITS IV PUSH (00:41)
[2023-08-17] MEDS: IBUPROFEN IV 800 MG/200 ML 800 MG/200 ML BAG 400 MG IVPB (02:15)
[2023-08-17] MEDS: HEPARIN SOD/D5W 100 UNITS/ML 25,000 UNITS/250 ML BAG 18 UNITS IV CONT (02:20)
[2023-08-17 04:33] LABS: Alveolar/Arterial O2 Gradient 51.4 mmHg; Base Excess ABG 6.1 mEq/l (+/-2.0); Carboxyhemoglobin 0.3 % THb (0-2.0); Device VENTILATOR; Fractional Inspired Oxygen 30 %; Methemoglobin ABG 0.3 %THb (0-1.5); Modified Allen's Test Pass; Oxygen Content ABG 17.2 %vol (16.0-22.0); Oxygen Saturation ABG 98.1 % (95.0-100.0); Oxyhemoglobin 97.1 % THb (90.0-100.0); PCO2 ABG 45.7 mmHg (35.0-45.0); PO2 ABG 108.8 mmHg (80.0-100.0); PO2 FiO2 Ratio Arterial Blood 3.63 %; Reduced Hemoglobin 2.3 %THb (0-5.0); Site Drawn RIGHT RADIAL; Total Hemoglobin 12.5 g/dL (12.0-18.0); pH ABG 7.449 (7.350-7.450)
[2023-08-17 04:34] LABS: Arterial Blood Gas PEEP 8 cmH2O; Arterial Blood Gas Tidal Volume 450 ml; Arterial Blood Gas Vent Mode CMV; Arterial Blood Gas Ventilator rate 18 /MIN
[2023-08-17 06:20] LABS: Hematocrit 35.5 % (42.0-52.0); Hemoglobin 11.4 g/dL (14.0-18.0); Mean Corpuscular HGB Conc 32.1 g/dl (32-36); Mean Corpuscular Hemoglobin 30.9 pg (26-34); Mean Corpuscular Volume 96.2 fl (80-100); Mean Platelet Volume 10.6 fl (7.4-10.4); Platelet Count Result 435 k/mm3 (150-375); Red Blood Count 3.69 M/mm3 (4.6-6.20); Red Cell Distribution Width 14.8 % (11.5-14.5); White Blood Count 11.9 K/mm3 (4.5-10.0)
[2023-08-17] MEDS: CENTRAL LINE FLUSH 10 ML IV PUSH ×3 (06:25→21:23)
[2023-08-17] MEDS: MEROPENEM 1 GM/NS 100 ML 1 GM/100 ML BAG IVPB ×3 (06:27→21:15)
[2023-08-17] MEDS: LEVOTHYROXINE SODIUM INJ 100 MCG/5 ML VIAL 50 MCG IV PUSH (06:27)
[2023-08-17 06:28] LABS: Alanine Aminotransferase 56 U/L (6-50); Alkaline Phosphatase 219 U/L (38-126); Anion Gap 7 mmol/L (8-16); Aspartate Amino Transferase 61 U/L (17-59); Bilirubin,Total 1.4 mg/dL (0.2-1.3); Blood Urea Nitrogen 44 mg/dL (9-20); Calcium 7.8 mg/dL (8.4-10.2); Carbon Dioxide 34 mmol/L (22-30); Chloride 92 mmol/L (98-107); Estimated CRCL calculation 52 ml/min; Estimated Glomerular Filt Rate 58; Glucose 168 mg/dL (65-110); Magnesium 2.8 mg/dL (1.6-2.3); Phosphorus 4.8 mg/dL (2.5-4.5); Potassium 3.9 mmol/L (3.4-5.0); Sodium 133 mmol/L (137-145); Triglycerides 116 mg/dL (<150)
[2023-08-17 06:45] LABS: Partial Thromboplastin Time 125.7 SECONDS (22.3-36.8)
--- NOTE | 2023-08-17 08:25 | WPDINTPN ---
Progress Note: A&P Assessment and Plan (1) Acute respiratory failure: Qualifiers: Respiratory failure complication: hypoxia and hypercapnia Qualified Code(s): J96.01 - Acute respiratory failure with hypoxia; J96.02 - Acute respiratory failure with hypercapnia Code(s): J96.00 - Acute respiratory failure, unspecified whether with hypoxia or hypercapnia Status: Acute Assessment and Plan: Acute hypoxic and hypercarbic respiratory failure. Chest x-ray shows diffuse lung disease most likely which improved with diuretics. ABG chest x-ray and ventilator settings reviewed this morning Patient placed on PSV but failed quickly due to high RSBI. PSV increased to 15/8 to get adequate RSBI. Will continue as tolerated It appears the patient is severely deconditioned and weak Hold further diuresis at this time Antibiotics as below Low tidal volume management (2) Sepsis: Qualifiers: Acute renal failure type: unspecified Sepsis acute organ dysfunction status: with acute organ dysfunction Sepsis type: sepsis due to unspecified organism Severe sepsis acute organ dysfunction type: acute renal failure Severe sepsis shock status: without septic shock Qualified Code(s): A41.9 - Sepsis, unspecified organism; R65.20 - Severe sepsis without septic shock; N17.9 - Acute kidney failure, unspecified Code(s): A41.9 - Sepsis, unspecified organism Status: Acute Assessment and Plan: Secondary to peritonitis. Patient also appears to have consolidation of the lower lobes on the CT done which could be aspiration versus atelectasis Repeat CT scan of abdomen and pelvis done on 08/06 showed gallbladder distention and also fluid collection likely exudative 08/06 patient underwent cholecystostomy and drainage of peritoneal abscess-cultures have been sent IR placed drain in abscess and right and gallbladder which are in place Gallbladder drain culture grew Enterococcus Abscess drain culture grew prevotella Patient was started on on Zyvox and meropenem Patient continues to have elevated WBC count and low-grade fevers 08/09 CT scan shows multiple peritoneal fluid collections. Although patient has drain in place, may not provide adequate source control due to multiple fluid locations. Recommend re-evaluation for abdominal washout due to persistent elevated WBC low-grade fevers. 08/10 repeat blood cultures sent 08/11 fungal blood culture were sent and patient was started on empiric micafungin 08/[address] of abdomen showed multiple intraperitoneal abscesses and worsening mass in right inguinal canal and right scrotum suggestive of infected hematoma 08/14 multiple (5) drains for placed in abdomen. Cultures growing Haemophilus parainfluenza 08/[address] scan IMPRESSION: 1. Multiple abdominal abscesses with interval improvement status post percutaneous drainage placement. 2. Small pleural effusions. 3. Bibasilar airspace opacities, consistent with atelectasis versus pneumonia. 4. Stable mass involving the right inguinal canal, probable infected hematoma. 08/16 will send repeat blood cultures, Weathers was changed, UA suggestive of UTI 08/17 patient remains febrile but WBC is down. Currently on broad-spectrum antibiotics and antifungals Treatment form of Zyvox meropenem and micafungin at this time.. Discussed with Dr. Armijo from General surgery and he plans to obtain a repeat CT scan tomorrow to further evaluate size of the abscesses. (3) Shock: Code(s): R57.9 - Shock, unspecified Status: Acute Assessment and Plan: Patient was hemodynamically stable prior to intubation but now blood pressure dropped. This could be combination of sedation versus sepsis Patient started on Levophed infusion which has been weaned off at this time. Continue if needed (4) Pelvic abscess in male: Code(s): K65.1 - Peritoneal abscess Status: Acute Assessment and Plan: See above (5) Peritonitis (acute) generalized
[2023-08-17] MEDS: ASPIRIN 81 MG CHEWABLE TABLET 162 MG PO (09:57)
[2023-08-17] MEDS: MINERAL OIL/WHITE PETROLATUM OINTMENT 1 APPLIC EACH EYE ×2 (09:58→21:24)
[2023-08-17] MEDS: PANTOPRAZOLE SODIUM IV 40 MG VIAL IV PUSH (10:01)
[2023-08-17] MEDS: MICAFUNGIN SODIUM 100 MG in SODIUM CHLORIDE 0.9% IV 100 ML IVPB (10:01)
[2023-08-17] MEDS: LINEZOLID 600 MG/300 ML 600 MG/300 ML SOLN 300 MG IVPB ×2 (10:02→21:34)
--- NOTE | 2023-08-17 11:47 | PM.PNGS ---
Progress Note: A&P Assessment and Plan (1) Abdominal abscess: Status: Acute Assessment and Plan: Drain outputs markedly decreased. Although patient had fever last night, it is normal today. Will watch temperature curve. White blood cell count continues to decrease. He is more awake and alert today. Not ready to be extubated. Continue to follow closely with exam labs and imaging. Discussed with Dr. Peacock. Probably repeat CT scan abdomen and pelvis tomorrow. 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 (5) Encephalopathy: Code(s): G93.40 - Encephalopathy, unspecified Status: Acute Assessment and Plan: Improved mentation today (6) MOISÉS (acute kidney injury): Code(s): N17.9 - Acute kidney failure, unspecified Status: Acute Assessment and Plan: Resolved but creatinine and BUN are slightly elevated from normal. May be due to diuresis but will follow closely. (7) Atrial fibrillation with rapid ventricular response: Code(s): I48.91 - Unspecified atrial fibrillation Status: Acute Assessment and Plan: On therapeutic dose heparin drip. Subjective Subjective Date/Time Seen: 08/17/23 11:47 Post Op day: 3 (Drainage multiple abdominal abscesses percutaneously) Patient reports: fever and other (Still on vent but much more awake today than yesterday.) Interval history: Weaning trial was done earlier this morning and patient still not able to extubate. Required some IV ibuprofen last night for fever of 38.5. Temperature is normal this morning. Review of Systems Review of Systems: ROS unobtainable: Yes unobtainable due to endotracheal tube Exam Const: General: comfortable, awake and lethargic Orientation/consciousness: lethargic GI: Inspection: distended, incision (Right inguinal incision looks good, no redness or apparent tenderness) and other (Drain outputs markedly decreased except for ECF drain (270cc)) GI Palp: Yes Soft to palpation, Yes Tenderness to palpation present (GI) (Minimal tenderness) and No Guarding due to palpation present (GI) Auscultation: Hypoactive bowel sounds present : Male General Exam: Yes edema Scrotum: edematous Urinary Catheter: Urinary Catheter: patent and draining (Weathers catheter changed yesterday) Objective Data Vital Signs Vital Signs: Vital Signs - 24 hr 08/16/23 12:09 08/16/23 12:00 08/16/23 12:00 Temperature Pulse Rate 89 90 90 Respiratory Rate 18 Blood Pressure 67/53 L Pulse Oximetry 99 Oxygen Delivery Mechanical Ventilation Fraction of Inspired Oxygen 35 08/16/23 12:00 08/16/23 14:36 08/16/23 14:00 Temperature 38.1 C H Pulse Rate 90 107 H 112 H Respiratory Rate 8 L Blood Pressure 67/53 L Pulse Oximetry 99 100 Oxygen Delivery Mechanical Ventilation Fraction of Inspired Oxygen 35 08/16/23 14:00 08/16/23 15:06 08/16/23 16:00 Temperature 37.9 C H Pulse Rate 112 H 114 H 98 Respiratory Rate 14 Blood Pressure 99/77 L Pulse Oximetry 98 95 Oxygen Delivery Mechanical Ventilation Fraction of Inspired Oxygen 35 08/16/23 16:00 08/16/23 16:00 08/16/23 17:17 Temperature 37.7 C H Pulse Rate 98 98 100 Respiratory Rate 26 H 26 H Blood Pressure 89/69 L Pulse Oximetry 96
[2023-08-17 13:20] LABS: Glucose Point of Care 180 mg/dl (65-105)
[2023-08-17 13:33] LABS: Partial Thromboplastin Time 77.9 SECONDS (22.3-36.8)
[2023-08-17] MEDS: FAT EMULSIONS IV 20% 250 ML 20.83 ML IVPB (16:19)
[2023-08-17] MEDS: AMINO ACIDS 5%/D15W/E-LYTES/CA 2,000 ML with MULTIVITAMINS-12 INJ VIAL 1 2.5 ML, MULTIV... 70 ML IV CONT (16:21)
--- NOTE | 2023-08-17 16:21 | PM.IMPN ---
Progress Note: A&P Assessment and Plan (1) Abdominal abscess: Status: Acute (2) Hypotension: Qualifiers: Hypotension type: postprocedural hypotension Qualified Code(s): I95.81 - Postprocedural hypotension Code(s): I95.9 - Hypotension, unspecified Status: Acute (3) Acute respiratory failure: Qualifiers: Respiratory failure complication: hypoxia and hypercapnia Qualified Code(s): J96.01 - Acute respiratory failure with hypoxia; J96.02 - Acute respiratory failure with hypercapnia Code(s): J96.00 - Acute respiratory failure, unspecified whether with hypoxia or hypercapnia Status: Acute (4) Shock: Code(s): R57.9 - Shock, unspecified Status: Acute (5) Pulmonary edema: Code(s): J81.1 - Chronic pulmonary edema Status: Acute (6) Anasarca: Code(s): R60.1 - Generalized edema Status: Acute (7) Protein-calorie malnutrition, severe: Code(s): E43 - Unspecified severe protein-calorie malnutrition Status: Acute (8) 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 Status: Acute (9) Pelvic abscess in male: Code(s): K65.1 - Peritoneal abscess Status: Acute (10) Aspiration pneumonia: Code(s): J69.0 - Pneumonitis due to inhalation of food and vomit Status: Acute (11) MOISÉS (acute kidney injury): Code(s): N17.9 - Acute kidney failure, unspecified Status: Acute (12) Atrial fibrillation with rapid ventricular response: Code(s): I48.91 - Unspecified atrial fibrillation Status: Acute (13) Hypothyroidism (acquired): Code(s): E03.9 - Hypothyroidism, unspecified Status: Chronic Plan Assessment and Plan (1) Acute respiratory failure: ?Qualifiers: ?Respiratory failure complication:?hypoxia and hypercapnia? Qualified Code(s):?J96.01 - Acute respiratory failure with hypoxia; J96.02 - Acute respiratory failure with hypercapnia ?Code(s): J96.00 - Acute respiratory failure, unspecified whether with hypoxia or hypercapnia ?Status:?Acute ?Assessment and Plan: Acute hypoxic and hypercarbic respiratory failure.? Chest x-ray shows diffuse lung disease most likely which improved with? diuretics. ABG chest x-ray and ventilator settings reviewed this morning Patient placed on PSV but failed quickly due to high RSBI.? PSV increased to 15/8 to get adequate RSBI.? Will continue as tolerated It appears the patient is severely deconditioned and weak Hold further diuresis at this time Antibiotics as below Low tidal volume management (2) Sepsis: ?Qualifiers: ?Acute renal failure type:?unspecified??Sepsis acute organ dysfunction status:?with acute organ dysfunction??Sepsis type:?sepsis due to unspecified organism??Severe sepsis acute organ dysfunction type:?acute renal failure??Severe sepsis shock status:?without septic shock? Qualified Code(s):?A41.9 - Sepsis, unspecified organism; R65.20 - Severe sepsis without septic shock; N17.9 - Acute kidney failure, unspecified ?Code(s): A41.9 - Sepsis, unspecified organism ?Status:?Acute ?Assessment and Plan: Secondary to peritonitis.? Patient also appears to have consolidation of the lower lobes on the CT done which could be aspiration versus atelectasis Repeat CT scan of abdomen and pelvis done on 08/06 showed gallbladder distention and also fluid collection likely exudative 08/06 patient underwent cholecystostomy and drainage of peritoneal abscess-cultures have been sent IR placed drain in abscess and right and gallbladder which are in place Gallbladder drain culture grew Enterococcus Abscess drain culture grew prevotella Patient was started on on Zyvox and meropenem Patient continues to have elevated WBC count and low-grade fevers 08/09 CT scan shows multiple peritoneal fluid collections.? Although patient has drain in place, may not provide adequate source control due to multiple flui
[2023-08-17] MEDS: HEPARIN SOD/D5W 100 UNITS/ML 25,000 UNITS/250 ML BAG 16 UNITS IV CONT (17:31)
[2023-08-17 17:48] LABS: Glucose Point of Care 145 mg/dl (65-105)
[2023-08-18] VITALS (30 sets, daily range): BP systolic 70–187; BP diastolic 55–106; PULSE 70–101; RESP 18–22; TEMP 36.9–38.1; O2SAT 97–100
[2023-08-18 00:08] LABS: Glucose Point of Care 167 mg/dl (65-105)
[2023-08-18] MEDS: MIDAZOLAM HCL (*CRX) 2 MG/2 ML VIAL IV PUSH (03:38)
[2023-08-18] MEDS: LIDOCAINE HCL 2% VISC SOLN 15 ML UDC PO (03:40)
--- NOTE | 2023-08-18 03:42 | PC.NURSE ---
Patient found with OG tube out. This nurse and charge nurse had multiple unsuccessful attempts to reinsert tube.
[2023-08-18] MEDS: IBUPROFEN IV 800 MG/200 ML 800 MG/200 ML BAG 400 MG IVPB (04:35)
[2023-08-18 05:43] LABS: Alveolar/Arterial O2 Gradient 61.3 mmHg; Base Excess ABG 8.4 mEq/l (+/-2.0); Carboxyhemoglobin 0.3 % THb (0-2.0); Fractional Inspired Oxygen 30 %; HCO3 ABG 32.1 mEq/l (22.0-26.0); Methemoglobin ABG 0.3 %THb (0-1.5); Oxygen Content ABG 16.2 %vol (16.0-22.0); Oxygen Saturation ABG 98.2 % (95.0-100.0); Oxyhemoglobin 96.8 % THb (90.0-100.0); PCO2 ABG 40.9 mmHg (35.0-45.0); PO2 ABG 104.5 mmHg (80.0-100.0); PO2 FiO2 Ratio Arterial Blood 3.48 %; Reduced Hemoglobin 2.6 %THb (0-5.0); Total Hemoglobin 11.8 g/dL (12.0-18.0)
[2023-08-18 05:45] LABS: Device VENTILATOR; Modified Allen's Test Pass; Site Drawn RIGHT RADIAL; pH ABG 7.512 (7.350-7.450)
[2023-08-18 05:46] LABS: Arterial Blood Gas PEEP 8 cmH2O; Arterial Blood Gas Tidal Volume 450 ml; Arterial Blood Gas Vent Mode CMV; Arterial Blood Gas Ventilator rate 18 /MIN
[2023-08-18 05:59] LABS: Basophils Percent Auto 0.4 % (0.2-1.2); Eosinophils Absolute Auto 0.4 K/mm3 (0-0.3); Eosinophils Percent Auto 3.9 % (0-4.4); Hematocrit 32.2 % (42.0-52.0); Immature Granulocyte Absolute 0.15 K/mm3 (0.00-0.031); Immature Granulocyte Percent A 1.5 % (0-0.5); Lymphocytes Absolute Auto 0.75 K/mm3 (0.9-3.2); Lymphocytes Percent Auto 7.4 % (18.3-44.2); Mean Corpuscular HGB Conc 31.1 g/dl (32-36); Mean Corpuscular Hemoglobin 30.5 pg (26-34); Mean Corpuscular Volume 98.2 fl (80-100); Mean Platelet Volume 10.7 fl (7.4-10.4); Monocytes Absolute Auto 0.5 K/mm3 (0.1-0.6); Monocytes Percent Auto 5.4 % (2.6-8.5); Neutrophils Absolute Auto 8.2 K/mm3 (1.3-6.7); Neutrophils Percent Auto 81.4 % (45.5-73.1); Platelet Count Result 390 k/mm3 (150-375); Red Blood Count 3.28 M/mm3 (4.6-6.20); Red Cell Distribution Width 14.6 % (11.5-14.5); White Blood Count 10.1 K/mm3 (4.5-10.0)
[2023-08-18] MEDS: MEROPENEM 1 GM/NS 100 ML 1 GM/100 ML BAG IVPB ×3 (05:59→21:23)
[2023-08-18] MEDS: CENTRAL LINE FLUSH 10 ML IV PUSH ×3 (06:02→21:23)
[2023-08-18] MEDS: LEVOTHYROXINE SODIUM INJ 100 MCG/5 ML VIAL 50 MCG IV PUSH (06:02)
[2023-08-18 06:10] LABS: Alanine Aminotransferase 46 U/L (6-50); Albumin Level 2.6 g/dL (3.5-5.1); Alkaline Phosphatase 211 U/L (38-126); Anion Gap 5 mmol/L (8-16); Aspartate Amino Transferase 57 U/L (17-59); Blood Urea Nitrogen 35 mg/dL (9-20); Calcium 7.6 mg/dL (8.4-10.2); Carbon Dioxide 34 mmol/L (22-30); Chloride 93 mmol/L (98-107); Estimated CRCL calculation 62 ml/min; Estimated Glomerular Filt Rate > 60; Glucose 142 mg/dL (65-110); Magnesium 2.7 mg/dL (1.6-2.3); Phosphorus 3.1 mg/dL (2.5-4.5); Potassium 3.9 mmol/L (3.4-5.0); Sodium 132 mmol/L (137-145)
[2023-08-18 06:24] LABS: Partial Thromboplastin Time 76.6 SECONDS (22.3-36.8)
--- NOTE | 2023-08-18 08:13 | WPDINTPN ---
Progress Note: A&P Assessment and Plan (1) Acute respiratory failure: Qualifiers: Respiratory failure complication: hypoxia and hypercapnia Qualified Code(s): J96.01 - Acute respiratory failure with hypoxia; J96.02 - Acute respiratory failure with hypercapnia Code(s): J96.00 - Acute respiratory failure, unspecified whether with hypoxia or hypercapnia Status: Acute Assessment and Plan: Acute hypoxic and hypercarbic respiratory failure. Chest x-ray shows diffuse lung disease most likely which improved with diuretics. ABG chest x-ray and ventilator settings reviewed this morning 08/17 Patient placed on PSV but failed quickly due to high RSBI. PSV increased to 15/8 to get adequate RSBI. Patient tolerated that for many hours It appears the patient is severely deconditioned and weak 08/18 will re try PSV again today. Continue Bumex to manage the fluid balance Antibiotics as below Low tidal volume management (2) Sepsis: Qualifiers: Sepsis type: sepsis due to unspecified organism Sepsis acute organ dysfunction status: with acute organ dysfunction Severe sepsis acute organ dysfunction type: acute renal failure Acute renal failure type: unspecified Severe sepsis shock status: without septic shock Qualified Code(s): A41.9 - Sepsis, unspecified organism; R65.20 - Severe sepsis without septic shock; N17.9 - Acute kidney failure, unspecified Code(s): A41.9 - Sepsis, unspecified organism Status: Acute Assessment and Plan: Secondary to peritonitis. Patient also appears to have consolidation of the lower lobes on the CT done which could be aspiration versus atelectasis Repeat CT scan of abdomen and pelvis done on 08/06 showed gallbladder distention and also fluid collection likely exudative 08/06 patient underwent cholecystostomy and drainage of peritoneal abscess-cultures have been sent IR placed drain in abscess and right and gallbladder which are in place Gallbladder drain culture grew Enterococcus Abscess drain culture grew prevotella Patient was started on on Zyvox and meropenem Patient continues to have elevated WBC count and low-grade fevers 08/09 CT scan shows multiple peritoneal fluid collections. Although patient has drain in place, may not provide adequate source control due to multiple fluid locations. Recommend re-evaluation for abdominal washout due to persistent elevated WBC low-grade fevers. 08/10 repeat blood cultures sent 08/11 fungal blood culture were sent and patient was started on empiric micafungin 08/[address] of abdomen showed multiple intraperitoneal abscesses and worsening mass in right inguinal canal and right scrotum suggestive of infected hematoma 08/14 multiple (5) drains for placed in abdomen. Cultures growing Haemophilus parainfluenza 08/[address] scan IMPRESSION: 1. Multiple abdominal abscesses with interval improvement status post percutaneous drainage placement. 2. Small pleural effusions. 3. Bibasilar airspace opacities, consistent with atelectasis versus pneumonia. 4. Stable mass involving the right inguinal canal, probable infected hematoma. 08/16 will send repeat blood cultures, Weathers was changed, UA suggestive of UTI 08/17 patient remains febrile but WBC is down. Currently on broad-spectrum antibiotics and antifungals Treatment form of Zyvox meropenem and micafungin at this time.. Discussed with Dr. Armijo from General surgery and he plans to obtain a repeat CT scan tomorrow to further evaluate size of the abscesses. 08/18 culture remains negative, low-grade fever, WBC normal, lower extremity Dopplers negative for DVT, chest x-ray shows atelectasis in the left lower lobe. Management drains and abscesses for general surgery (3) Shock: Code(s): R57.9 - Shock, unspecified Status: Acute Assessment and Plan: Patient was hemodynamically stable prior to intubation but now blood pressure dropped. This could be combination of sedation versus sep
[2023-08-18] MEDS: BUMETANIDE INJ 1 MG/4 ML VIAL 2 MG IV PUSH (08:27)
[2023-08-18] MEDS: MINERAL OIL/WHITE PETROLATUM OINTMENT 1 APPLIC EACH EYE ×2 (08:28→21:15)
[2023-08-18] MEDS: PANTOPRAZOLE SODIUM IV 40 MG VIAL IV PUSH (08:28)
[2023-08-18] MEDS: LINEZOLID 600 MG/300 ML 600 MG/300 ML SOLN 300 MG IVPB ×2 (08:28→20:56)
[2023-08-18] MEDS: MICAFUNGIN SODIUM 100 MG in SODIUM CHLORIDE 0.9% IV 100 ML IVPB (08:29)
[2023-08-18] MEDS: HEPARIN SOD/D5W 100 UNITS/ML 25,000 UNITS/250 ML BAG 16 UNITS IV CONT (11:27)
--- NOTE | 2023-08-18 11:55 | PM.PNGS ---
Progress Note: A&P Assessment and Plan (1) Abdominal abscess: Status: Acute Assessment and Plan: By my review of CT scan and the exam and clinical picture, it seems the abscesses are all well drained. Still drainage per enterocutaneous fistula in the pelvis. No change of ongoing infection in the right groin hematoma on CT. Clinically this does not appear infected either. Overall he looks better. Although still in respiratory failure on the ventilator, his white count is nearly normal, his temperature curve is draped decreasing, creatinine is lower than it was the last 2 days. Await radiologist's report on CT scan. Otherwise continue antibiotics and critical care management. (2) Acute respiratory failure: Qualifiers: Respiratory failure complication: hypoxia and hypercapnia Qualified Code(s): J96.01 - Acute respiratory failure with hypoxia; J96.02 - Acute respiratory failure with hypercapnia Code(s): J96.00 - Acute respiratory failure, unspecified whether with hypoxia or hypercapnia Status: Acute Assessment and Plan: Remains on ventilator, very weak, discussed with Dr. Peacock. 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 No collection there by CT. Drainage is less than 200 an usually less than 150. Hopefully will closed with time. (5) Atrial fibrillation with rapid ventricular response: Code(s): I48.91 - Unspecified atrial fibrillation Status: Acute Assessment and Plan: Remains on full anticoagulation with heparin. Subjective Subjective Date/Time Seen: 08/18/23 11:55 Post Op day: 4 (Day 4 status post percutaneous drainage of multiple abscesses) Patient reports: fever (Maximum temp last night was 38.1 which is less than the previous night and the night before that.) and other (Still on ventilator, more somnolent this morning, just got back from CT scan.) Review of Systems Review of Systems: ROS unobtainable: Yes unobtainable due to endotracheal tube Exam Const: General: patient obtunded and tired appearing Orientation/consciousness: patient obtunded GI: Inspection: distended, incision (No purulent fluid in any drains, overall output decreased) and other (Enteric content in pelvic drain, #3. Bile per gallbladder drain) GI Palp: Yes Soft to palpation, Yes Tenderness to palpation present (GI), No Guarding due to palpation present (GI) and No Palpable mass present Auscultation: Hypoactive bowel sounds present : Male General Exam: Yes ecchymosis (Around inguinal incision which is dry and intact), No hernia and Yes other (No warmth erythema or particular tenderness over incision or groin) Penis: Yes other (Mostly retracted in scrotum) Scrotum: edematous Urinary Catheter: Urinary Catheter: patent and draining Skin: Lesions: no lesions Rashes: no rashes Neuro: General: patient obtunded Objective Data Vital Signs Vital Signs: Vital Signs - 24 hr 08/17/23 14:04 08/17/23 12:00 08/17/23 12:00 Temperature Pulse Rate 86 80 Respiratory Rate Blood Pressure Pulse Oximetry 100 100 Oxygen Delivery Mechanical Ventilation Mechanical Ventilation Fraction of Inspired Oxygen 30 30 08/17/23 12:00 08/17/23 14:00 08/17/23 14:00 Temperature 37.4 C 37.6 C Pulse Rate 80 82 82 Respiratory Rate 16 22 H Blood Pressure 95/63 L 113/69 Pulse Oximetry 99 99 Oxygen Delivery Fraction of Inspired Oxygen 08/17/23 16:00 08/17/23 16:00 08/17/23 16:00 Temperature 37.5 C Pulse Rate 86 86 Respiratory Rate 22 H Blood Pressure 91/58 L Pulse Oximetry 99 98 Oxygen Delivery Mechanical Ventilation Fraction of Insp
[2023-08-18 12:56] LABS: Glucose Point of Care 173 mg/dl (65-105)
[2023-08-18] MEDS: AMINO ACIDS 5%/D15W/E-LYTES/CA 2,000 ML with MULTIVITAMINS-12 INJ VIAL 1 2.5 ML, MULTIV... 70 ML IV CONT (14:08)
[2023-08-18] MEDS: FAT EMULSIONS IV 20% 250 ML 20.83 ML IVPB (14:09)
--- NOTE | 2023-08-18 16:11 | PM.IMPN ---
Progress Note: A&P Assessment and Plan (1) Respiratory failure: Code(s): J96.90 - Respiratory failure, unspecified, unspecified whether with hypoxia or hypercapnia Status: Acute Assessment and Plan: Patient had acute respiratory failure earlier felt to be multifactorial due to fluid overload, possible aspiration pneumonia vs atelectasis. CXR 08/09 showed mild pulm edema, small left pleural effusion, right opacities worsening concerning for pneumonia--CT less concerning for PNA. MRSA swab negative 08/09: Linezolid added to cover Enterococcus species growing from cholecystostomy tube Lasix then Bumex was given with improved resp status. Weaned to room air. He remained on IV Bumex. ------ On the morning of 08/15, patient developed acute respiratory distress. ABG 7.37/62/58 so BiPAP ordered Repeat ABG 7.15/101/91 so patient intubated. CXR reviewed showing diffuse lung disease c/w edema vs PNA vs atelectasis Cumulative fluid balance at that time was +2.7L with excellent UOP past few days prior to admission. Consider pulmonary edema. Consider ARDS. Consider aspiration but NPO so felt less likely. Good UOP. Bumex held for 2 days but resumed today. Sedation is off. Breathing trials underway. Extubate when able. Appreciate bag machine operator helper input (2) Sepsis: Qualifiers: Acute renal failure type: unspecified Sepsis acute organ dysfunction status: with acute organ dysfunction Sepsis type: sepsis due to unspecified organism Severe sepsis acute organ dysfunction type: acute renal failure Severe sepsis shock status: without septic shock Qualified Code(s): A41.9 - Sepsis, unspecified organism; R65.20 - Severe sepsis without septic shock; N17.9 - Acute kidney failure, unspecified Code(s): A41.9 - Sepsis, unspecified organism Status: Acute Assessment and Plan: Currently being treated for cholecystitis + pelvic abscesses Tx with meropenem, linezolid. Micafungin added 08/11 UCx 08/05, 08/06 negative GB Cx 08/06 growing enterococcus but unable to perform sensitivities Abscess Cx 08/06 Prevotella that is beta-lactamase positive BCx 08/06 negative. MRSA nasal swab 08/09 negative BCx 08/10 NGTD Fungal cx 08/[address] A/P 08/13 showing multiple intraperitoneal abscesses similar to 08/09 with worsening mass involving the right inguinal canal and right scrotum. Multiple Abd drains placed 08/14 with culture growing H. parainfluenza. Febrile again overnight. Leukocytosis still trending down BP soft so on and off Levophed today. Appears to be improving now that we have better source control Wean off Levophed as able. (3) Cholecystitis: Code(s): K81.9 - Cholecystitis, unspecified Status: Acute Assessment and Plan: Cholecystostomy fluid drained and tube placed 08/06 Culture growing Enterococcus species but unable to perform sensitivities. Discussed with infectious disease pharmacist, initiated on linezolid 08/09 due to resistance patterns Continue Linezolid for now (4) Pelvic abscess in male: Code(s): K65.1 - Peritoneal abscess Status: Acute Assessment and Plan: Pelvic drain placed 08/06 Culture growing prevotella species, currently being treated with meropenem Multiple (5) new abdominal drains placed 08/14 and culture results as above All drain outputs minimal Continue Meropenem, Linezolid and micafungin. 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
[2023-08-18 17:57] LABS: Glucose Point of Care 157 mg/dl (65-105)
[2023-08-18 23:26] LABS: Glucose Point of Care 148 mg/dl (65-105)
[2023-08-19] VITALS (24 sets, daily range): BP systolic 89–117; BP diastolic 56–70; PULSE 67–96; RESP 14–29; TEMP 37.8–38.3; O2SAT 97–100
[2023-08-19] MEDS: HEPARIN SOD/D5W 100 UNITS/ML 25,000 UNITS/250 ML BAG 16 UNITS IV CONT (02:29)
[2023-08-19 05:15] LABS: Alveolar/Arterial O2 Gradient 75.1 mmHg; Base Excess ABG 9.6 mEq/l (+/-2.0); Carboxyhemoglobin 0.3 % THb (0-2.0); Fractional Inspired Oxygen 30 %; HCO3 ABG 33.2 mEq/l (22.0-26.0); Methemoglobin ABG 0.3 %THb (0-1.5); Oxygen Content ABG 16.2 %vol (16.0-22.0); Oxygen Saturation ABG 97.6 % (95.0-100.0); Oxyhemoglobin 96.4 % THb (90.0-100.0); PCO2 ABG 41.1 mmHg (35.0-45.0); PO2 ABG 90.5 mmHg (80.0-100.0); PO2 FiO2 Ratio Arterial Blood 3.02 %; Total Hemoglobin 11.9 g/dL (12.0-18.0)
[2023-08-19 05:19] LABS: Modified Allen's Test Pass; Site Drawn RIGHT RADIAL; pH ABG 7.525 (7.350-7.450)
[2023-08-19 05:20] LABS: Arterial Blood Gas PEEP 8 cmH2O; Arterial Blood Gas Vent Mode CMV; Arterial Blood Gas Ventilator rate 18 /MIN; Device VENTILATOR
[2023-08-19 05:21] LABS: Arterial Blood Gas Tidal Volume 420 ml
[2023-08-19 05:41] LABS: Glucose Point of Care 133 mg/dl (65-105)
[2023-08-19 05:49] LABS: INR 1.1; Prothrombin Time 14.8 Seconds (11.1-14.7)
[2023-08-19 05:50] LABS: Partial Thromboplastin Time 69.7 SECONDS (22.3-36.8)
[2023-08-19] MEDS: MEROPENEM 1 GM/NS 100 ML 1 GM/100 ML BAG IVPB ×3 (06:16→21:00)
[2023-08-19] MEDS: LEVOTHYROXINE SODIUM INJ 100 MCG/5 ML VIAL 50 MCG IV PUSH (06:18)
[2023-08-19] MEDS: CENTRAL LINE FLUSH 10 ML IV PUSH ×3 (06:19→20:18)
[2023-08-19 06:22] LABS: Basophils Percent Auto 0.4 % (0.2-1.2); Eosinophils Absolute Auto 0.4 K/mm3 (0-0.3); Eosinophils Percent Auto 3.8 % (0-4.4); Hematocrit 33.5 % (42.0-52.0); Hemoglobin 10.6 g/dL (14.0-18.0); Immature Granulocyte Absolute 0.13 K/mm3 (0.00-0.031); Immature Granulocyte Percent A 1.4 % (0-0.5); Lymphocytes Absolute Auto 0.85 K/mm3 (0.9-3.2); Lymphocytes Percent Auto 9.2 % (18.3-44.2); Mean Corpuscular HGB Conc 31.6 g/dl (32-36); Mean Corpuscular Hemoglobin 30.8 pg (26-34); Mean Corpuscular Volume 97.4 fl (80-100); Mean Platelet Volume 10.4 fl (7.4-10.4); Monocytes Absolute Auto 0.5 K/mm3 (0.1-0.6); Monocytes Percent Auto 5.2 % (2.6-8.5); Neutrophils Absolute Auto 7.4 K/mm3 (1.3-6.7); Platelet Count Result 399 k/mm3 (150-375); Red Blood Count 3.44 M/mm3 (4.6-6.20); Red Cell Distribution Width 14.7 % (11.5-14.5); White Blood Count 9.2 K/mm3 (4.5-10.0)
[2023-08-19] MEDS: HEPARIN SODIUM 5,000 UNITS/ML VIAL 3500 UNITS IV PUSH (07:23)
--- NOTE | 2023-08-19 08:06 | WPDINTPN ---
Progress Note: A&P Assessment and Plan (1) Acute respiratory failure: Qualifiers: Respiratory failure complication: hypoxia and hypercapnia Qualified Code(s): J96.01 - Acute respiratory failure with hypoxia; J96.02 - Acute respiratory failure with hypercapnia Code(s): J96.00 - Acute respiratory failure, unspecified whether with hypoxia or hypercapnia Status: Acute Assessment and Plan: Acute hypoxic and hypercarbic respiratory failure. Chest x-ray shows diffuse lung disease most likely which improved with diuretics. ABG chest x-ray and ventilator settings reviewed this morning 08/17 Patient placed on PSV but failed quickly due to high RSBI. PSV increased to 15/8 to get adequate RSBI. Patient tolerated that for many hours It appears the patient is severely deconditioned and weak 08/18 will re try PSV again today. Continue Bumex to manage the fluid balance 08/19 patient placed on PSV again today. Patient either had low rate on high pressure support or low tidal volume lower pressure support. I was able to get adequate RSBI on 06/30. This is better than what he has done in the past but still good enough for extubation. I will continue pressure support ventilation as tolerated through the day and try to wean down pressure support. Antibiotics as below Low tidal volume management (2) Sepsis: Qualifiers: Acute renal failure type: unspecified Sepsis acute organ dysfunction status: with acute organ dysfunction Sepsis type: sepsis due to unspecified organism Severe sepsis acute organ dysfunction type: acute renal failure Severe sepsis shock status: without septic shock Qualified Code(s): A41.9 - Sepsis, unspecified organism; R65.20 - Severe sepsis without septic shock; N17.9 - Acute kidney failure, unspecified Code(s): A41.9 - Sepsis, unspecified organism Status: Acute Assessment and Plan: Secondary to peritonitis. Patient also appears to have consolidation of the lower lobes on the CT done which could be aspiration versus atelectasis Repeat CT scan of abdomen and pelvis done on 08/06 showed gallbladder distention and also fluid collection likely exudative 08/06 patient underwent cholecystostomy and drainage of peritoneal abscess-cultures have been sent IR placed drain in abscess and right and gallbladder which are in place Gallbladder drain culture grew Enterococcus Abscess drain culture grew prevotella Patient was started on on Zyvox and meropenem Patient continues to have elevated WBC count and low-grade fevers 08/09 CT scan shows multiple peritoneal fluid collections. Although patient has drain in place, may not provide adequate source control due to multiple fluid locations. Recommend re-evaluation for abdominal washout due to persistent elevated WBC low-grade fevers. 08/10 repeat blood cultures sent 08/11 fungal blood culture were sent and patient was started on empiric micafungin 08/[address] of abdomen showed multiple intraperitoneal abscesses and worsening mass in right inguinal canal and right scrotum suggestive of infected hematoma 08/14 multiple (5) drains for placed in abdomen. Cultures growing Haemophilus parainfluenza 08/[address] scan IMPRESSION: 1. Multiple abdominal abscesses with interval improvement status post percutaneous drainage placement. 2. Small pleural effusions. 3. Bibasilar airspace opacities, consistent with atelectasis versus pneumonia. 4. Stable mass involving the right inguinal canal, probable infected hematoma. 08/16 will send repeat blood cultures, Weathers was changed, UA suggestive of UTI 08/17 patient remains febrile but WBC is down. Currently on broad-spectrum antibiotics and antifungals Treatment form of Zyvox meropenem and micafungin at this time.. Discussed with Dr. Armijo from General surgery and he plans to obtain a repeat CT scan tomorrow to further evaluate size of the abscesses. 08/18 culture remains negative, low-grade fever, WBC normal, lower ex
[2023-08-19] MEDS: MINERAL OIL/WHITE PETROLATUM OINTMENT 1 APPLIC EACH EYE ×2 (08:33→20:19)
[2023-08-19] MEDS: BUMETANIDE INJ 1 MG/4 ML VIAL 2 MG IV PUSH (08:33)
[2023-08-19] MEDS: PANTOPRAZOLE SODIUM IV 40 MG VIAL IV PUSH (08:33)
[2023-08-19] MEDS: LINEZOLID 600 MG/300 ML 600 MG/300 ML SOLN 300 MG IVPB (08:41)
[2023-08-19] MEDS: MICAFUNGIN SODIUM 100 MG in SODIUM CHLORIDE 0.9% IV 100 ML IVPB (08:53)
[2023-08-19 09:01] LABS: Alanine Aminotransferase 62 U/L (6-50); Albumin Level 2.8 g/dL (3.5-5.1); Alkaline Phosphatase 241 U/L (38-126); Anion Gap 4 mmol/L (8-16); Aspartate Amino Transferase 101 U/L (17-59); Bilirubin,Total 1.1 mg/dL (0.2-1.3); Blood Urea Nitrogen 33 mg/dL (9-20); Calcium 7.7 mg/dL (8.4-10.2); Carbon Dioxide 35 mmol/L (22-30); Chloride 91 mmol/L (98-107); Estimated CRCL calculation 68 ml/min; Estimated Glomerular Filt Rate > 60; Glucose 137 mg/dL (65-110); Magnesium 2.5 mg/dL (1.6-2.3); Potassium 3.9 mmol/L (3.4-5.0); Sodium 130 mmol/L (137-145); Triglycerides 109 mg/dL (<150)
[2023-08-19 09:12] LABS: Transferrin 218 mg/dL (206-381)
--- NOTE | 2023-08-19 10:06 | PM.IMPN ---
Progress Note: A&P Assessment and Plan (1) Respiratory failure: Code(s): J96.90 - Respiratory failure, unspecified, unspecified whether with hypoxia or hypercapnia Status: Acute Assessment and Plan: Patient had acute respiratory failure earlier felt to be multifactorial due to fluid overload, possible aspiration pneumonia vs atelectasis. CXR 08/09 showed mild pulm edema, small left pleural effusion, right opacities worsening concerning for pneumonia--CT less concerning for PNA. MRSA swab negative 08/09: Linezolid added to cover Enterococcus species growing from cholecystostomy tube Lasix then Bumex was given with improved resp status. Weaned to room air. He remained on IV Bumex. ------ On the morning of 08/15, patient developed acute respiratory distress. ABG 7.37/62/58 so BiPAP ordered Repeat ABG 7.15/101/91 so patient intubated. CXR reviewed showing diffuse lung disease c/w edema vs PNA vs atelectasis Cumulative fluid balance at that time was +2.7L with excellent UOP past few days prior to admission. Consider pulmonary edema. Consider ARDS. Consider aspiration but NPO so felt less likely. Good UOP. Bumex held for 2 days but resumed 08/18 CT A/P showing decreased pleural effusions and bilateral dependent atelectasis/consolidation. Sedation is off. Breathing trials underway. Extubate when able. Appreciate customer service representative input (2) Sepsis: Qualifiers: Sepsis type: sepsis due to unspecified organism Sepsis acute organ dysfunction status: with acute organ dysfunction Severe sepsis acute organ dysfunction type: acute renal failure Acute renal failure type: unspecified Severe sepsis shock status: without septic shock Qualified Code(s): A41.9 - Sepsis, unspecified organism; R65.20 - Severe sepsis without septic shock; N17.9 - Acute kidney failure, unspecified Code(s): A41.9 - Sepsis, unspecified organism Status: Acute Assessment and Plan: Currently being treated for cholecystitis + pelvic abscesses Tx with meropenem, linezolid. Micafungin added 08/11 UCx 08/05, 08/06, 08/16 negative GB Cx 08/06 growing enterococcus but unable to perform sensitivities Abscess Cx 08/06 Prevotella that is beta-lactamase positive BCx 08/06 negative. MRSA nasal swab 08/09 negative BCx 08/10 negative. Fungal cx 08/[address] A/P 08/13 showing multiple intraperitoneal abscesses similar to 08/09 with worsening mass involving the right inguinal canal and right scrotum. Multiple Abd drains placed 08/14 with culture growing H. parainfluenza. BCx 08/[address] A/P 08/18 slight increase in fluid collection adjacent to LLQ pigtail drain measuring 3 cm, other fluid collections are either stable or slightly smaller in size, stable right groin infected hematoma, cystitis versus bladder wall thickening, Weathers catheter in place but balloon not visualized and mild fecal impaction. Febrile again overnight but fever curve better. Leukocytosis trending down and no normal Levophed off now Appears to be improving now that we have better source control Linezolid stopped today. Continue other IV abx and IV anti-fungal. (3) Cholecystitis: Code(s): K81.9 - Cholecystitis, unspecified Status: Acute Assessment and Plan: Cholecystostomy fluid drained and tube placed 08/06 Culture growing Enterococcus species but unable to perform sensitivities. Discussed with infectious disease pharmacist, initiated on linezolid 08/09 due to resistance patterns Completed 10 day course of Linezolid today (4) Pelvic abscess in male: Code(s): K65.1 - Peritoneal abscess Status: Acute Assessment and Plan: Pelvic drain placed 08/06 Culture growing prevotella species, currently being treated with meropenem Multiple (5) new abdominal drains placed 08/14 and culture results as above All drain outputs minimal Continue Meropenem and micafungin. Follow up on culture results (5) Enterocutaneous fistula: Code(s
[2023-08-19] MEDS: MIDAZOLAM HCL (*CRX) 2 MG/2 ML VIAL IV PUSH (10:09)
--- NOTE | 2023-08-19 10:11 | PM.PNGS ---
Progress Note: A&P Assessment and Plan (1) Abdominal abscess: Status: Acute Assessment and Plan: S/p placement of percutaneous drains on 08/14. He has a cholecystostomy tube, as well as 6 additional pigtail drains with one containing the enterocutaneous fistula. No purulent drainage coming from any of these drains with very minimal output. CT scan yesterday showed that these fluid collections have improved or appear stable. Continue to monitor drains again today and may consider removing a few in the next few days depending on how he progresses. WBC count trending down to normal today. Right groin hematoma improving with no clinical signs of infection, will continue to monitor for now. Continue antibiotics and critical care management. (2) Acute respiratory failure: Qualifiers: Respiratory failure complication: hypoxia and hypercapnia Qualified Code(s): J96.01 - Acute respiratory failure with hypoxia; J96.02 - Acute respiratory failure with hypercapnia Code(s): J96.00 - Acute respiratory failure, unspecified whether with hypoxia or hypercapnia Status: Acute Assessment and Plan: Continue vent management per Foot Doctor. 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 Continue TPN. Nursing staff will be attempting NG or OG tube placement again today with sedation. If unable to get NG placed with sedation, we will hold off for now. Discussed with Dr. Armijo. (5) Atrial fibrillation with rapid ventricular response: Code(s): I48.91 - Unspecified atrial fibrillation Status: Acute Assessment and Plan: Remains on full anticoagulation with heparin. Plan I have discussed the patient's case and plan of care with Dr. Armijo. Subjective Subjective Date/Time Seen: 08/19/23 10:11 Post Op day: 5 (status post percutaneous drainage of multiple abscesses, and s/p right inguinal hernia repair on 08/02/23) Patient reports: fever (T max 100.9F overnight and 100.1F this morning) Interval history: Chart reviewed since last seen. He was intubated and transferred back to ICU on 08/14/23. He remains intubated in the ICU but sedation is currently on hold for a spontaneous breathing trail. He opens his eyes and shakes his head yes or no to simple questions. He denies any pain or abdominal pain. He had 5 additional percutaneous drains placed in Radiology on 08/14/23 for intraabdominal fluid collections. Since then, his overall temperature curve has been decreasing and his WBC count is trending down and normal today. He did require vasopressors since being in the ICU but these have been off since 8 pm last night per nursing. He had a repeat CT abdomen/pelvis w/o contrast yesterday that showed stable or improved fluid collections other than slight increase in fluid collection adjacent to the LLQ pigtail drain in the deep pelvis, mild fecal impaction, stable possible right groin infected hematoma, and cystis vs bladder wall thickening from incomplete distention. His LLQ perc drain that is labeled drain #3 appears to be the pelvic drain for the enterocutaneous fistula. There was no output from this drain from 08/16 to 08/18 when there was drainage again. This is the drain that showed slight increase in size of fluid collection on CT, and now has had a total of 105 cc output over the past 24 hours. It appears to be functioning well now. Per nursing, he has had two BMs since last night. They are having issues placing an OG or NG tube with multiple attempts by staff. Per the nurse, they have made 3 attempts this morning at OG and/or NG placement, but the patient has been off sedation and is thrashing around when t
[2023-08-19 10:19] LABS: Free T4 Free Thyroxine 1.42 ng/mL (0.78-2.19)
--- NOTE | 2023-08-19 11:05 | PCFNICU ---
ICU Rounding Note: Pt current nutrition is Clinimix E at 70 ml/hr. Last recorded weight is 104.5 kg, down from 108 kg on admit. Bowel Motility: +BM reported 08/19 Labs Reviewed:Mg 2.5, BUN 33, Alb 2.8, Na 130, Hgb 10.6,Hct 33.5 Meds Noted: Clinimix E at 70 ml/hr with 250 ml of 20% Lipid Emulsion, Protonix, Synthroid, Heparin, Bumex. Skin: WNL Additional Notes: Patient remains on mechanical vent. TPN continues providing 1693 kcals and 84 gms protein, 84% kcal needs at 25 kcal/kg and 86% protein needs at 1.2-1.4 kcal/kg. Plans for NGT today. Discussions in rounds regarding possible trickle feedings. Recommend tube feedings of Vital AF 1.2 at 20 ml/hr. Following daily in ICU rounds. Will monitor weight, labs, skin, meds, TPN every Saturday and Saturday.
[2023-08-19 12:55] LABS: Glucose Point of Care 146 mg/dl (65-105)
[2023-08-19 13:10] LABS: Free T4 Free Thyroxine Reflex 1.69 ng/dL (0.78-2.19)
[2023-08-19 13:59] LABS: Total Triiodothyronine (T3) 1.92 NG/ML (0.97-1.69)
[2023-08-19 14:24] LABS: Partial Thromboplastin Time 83.7 SECONDS (22.3-36.8)
[2023-08-19] MEDS: SODIUM CHLORIDE 0.9% IV 1,000 ML 100 ML IV CONT (15:13)
[2023-08-19] MEDS: AMINO ACIDS 5%/D15W/E-LYTES/CA 2,000 ML with MULTIVITAMINS-12 INJ VIAL 1 2.5 ML, MULTIV... 70 ML IV CONT (15:16)
[2023-08-19] MEDS: FAT EMULSIONS IV 20% 250 ML 20.83 ML IVPB (15:17)
[2023-08-19] MEDS: ACETAMINOPHEN 650 MG SUPPOSITORY RECTAL ×2 (17:22→21:02)
[2023-08-19] MEDS: HEPARIN SOD/D5W 100 UNITS/ML 25,000 UNITS/250 ML BAG 18 UNITS IV CONT (17:22)
[2023-08-19 17:47] LABS: Glucose Point of Care 135 mg/dl (65-105)
[2023-08-19 20:34] LABS: Partial Thromboplastin Time 75.7 SECONDS (22.3-36.8)
[2023-08-19 23:59] LABS: Glucose Point of Care 131 mg/dl (65-105)
[2023-08-20] VITALS (30 sets, daily range): BP systolic 85–152; BP diastolic 48–92; PULSE 69–98; RESP 15–24; TEMP 37.7–38.2; O2SAT 93–100
[2023-08-20 05:16] LABS: Hematocrit 32.1 % (42.0-52.0); Hemoglobin 10.3 g/dL (14.0-18.0); Mean Corpuscular HGB Conc 32.1 g/dl (32-36); Mean Corpuscular Hemoglobin 31.2 pg (26-34); Mean Corpuscular Volume 97.3 fl (80-100); Mean Platelet Volume 10.2 fl (7.4-10.4); Platelet Count Result 379 k/mm3 (150-375); Red Cell Distribution Width 14.8 % (11.5-14.5); White Blood Count 10.4 K/mm3 (4.5-10.0)
[2023-08-20 05:27] LABS: Alanine Aminotransferase 57 U/L (6-50); Albumin Level 2.6 g/dL (3.5-5.1); Alkaline Phosphatase 208 U/L (38-126); Anion Gap 4 mmol/L (8-16); Aspartate Amino Transferase 66 U/L (17-59); Bilirubin,Total 1.3 mg/dL (0.2-1.3); Blood Urea Nitrogen 28 mg/dL (9-20); Calcium 7.6 mg/dL (8.4-10.2); Carbon Dioxide 34 mmol/L (22-30); Chloride 92 mmol/L (98-107); Estimated CRCL calculation 76 ml/min; Estimated Glomerular Filt Rate > 60; Glucose 132 mg/dL (65-110); Magnesium 2.4 mg/dL (1.6-2.3); Phosphorus 2.9 mg/dL (2.5-4.5); Potassium 3.7 mmol/L (3.4-5.0); Sodium 130 mmol/L (137-145)
[2023-08-20 05:28] LABS: Partial Thromboplastin Time 79.5 SECONDS (22.3-36.8)
[2023-08-20 05:54] LABS: Alveolar/Arterial O2 Gradient 76.7 mmHg; Base Excess ABG 9.3 mEq/l (+/-2.0); Carboxyhemoglobin 0.3 % THb (0-2.0); Fractional Inspired Oxygen 30 %; HCO3 ABG 33.7 mEq/l (22.0-26.0); Methemoglobin ABG 0.3 %THb (0-1.5); Oxygen Content ABG 15.6 %vol (16.0-22.0); Oxygen Saturation ABG 96.9 % (95.0-100.0); Oxyhemoglobin 95.3 % THb (90.0-100.0); PCO2 ABG 45.1 mmHg (35.0-45.0); PO2 ABG 84.2 mmHg (80.0-100.0); PO2 FiO2 Ratio Arterial Blood 2.81 %; Reduced Hemoglobin 4.1 %THb (0-5.0); Total Hemoglobin 11.6 g/dL (12.0-18.0); pH ABG 7.491 (7.350-7.450)
[2023-08-20 05:55] LABS: Arterial Blood Gas PEEP 8 cmH2O; Arterial Blood Gas Tidal Volume 420 ml; Arterial Blood Gas Vent Mode CMV; Arterial Blood Gas Ventilator rate 15 /MIN; Device VENTILATOR; Modified Allen's Test Pass; Site Drawn RIGHT RADIAL
[2023-08-20] MEDS: LEVOTHYROXINE SODIUM INJ 100 MCG/5 ML VIAL 50 MCG IV PUSH (05:57)
[2023-08-20] MEDS: MEROPENEM 1 GM/NS 100 ML 1 GM/100 ML BAG IVPB (05:57)
[2023-08-20] MEDS: CENTRAL LINE FLUSH 10 ML IV PUSH ×3 (05:58→21:35)
[2023-08-20] MEDS: ACETAMINOPHEN 650 MG SUPPOSITORY RECTAL (06:01)
[2023-08-20] MEDS: HEPARIN SOD/D5W 100 UNITS/ML 25,000 UNITS/250 ML BAG 18 UNITS IV CONT ×2 (06:33→19:35)
--- NOTE | 2023-08-20 09:04 | WPDINTPN ---
Progress Note: A&P Assessment and Plan (1) Acute respiratory failure: Qualifiers: Respiratory failure complication: hypoxia and hypercapnia Qualified Code(s): J96.01 - Acute respiratory failure with hypoxia; J96.02 - Acute respiratory failure with hypercapnia Code(s): J96.00 - Acute respiratory failure, unspecified whether with hypoxia or hypercapnia Status: Acute Assessment and Plan: Acute hypoxic and hypercarbic respiratory failure. Chest x-ray shows diffuse lung disease most likely which improved with diuretics. ABG chest x-ray and ventilator settings reviewed this morning 08/17 Patient placed on PSV but failed quickly due to high RSBI. PSV increased to 15/8 to get adequate RSBI. Patient tolerated that for many hours It appears the patient is severely deconditioned and weak 08/18 will re try PSV again today. Continue Bumex to manage the fluid balance 08/19 patient placed on PSV again today. Patient either had low rate on high pressure support or low tidal volume lower pressure support. I was able to get adequate RSBI on 06/30. This is better than what he has done in the past but still good enough for extubation. I will continue pressure support ventilation as tolerated through the day and try to wean down pressure support. 08/20 patient placed on PSV again and can only get adequate RSBI on 06/30. If extubated patient will need and NIPPV which because of his deconditioning and fluctuating mental status may not be good option. Will continue PSV as tolerated today Antibiotics as below Low tidal volume management (2) Sepsis: Qualifiers: Sepsis type: sepsis due to unspecified organism Sepsis acute organ dysfunction status: with acute organ dysfunction Severe sepsis acute organ dysfunction type: acute renal failure Acute renal failure type: unspecified Severe sepsis shock status: without septic shock Qualified Code(s): A41.9 - Sepsis, unspecified organism; R65.20 - Severe sepsis without septic shock; N17.9 - Acute kidney failure, unspecified Code(s): A41.9 - Sepsis, unspecified organism Status: Acute Assessment and Plan: Secondary to peritonitis. Patient also appears to have consolidation of the lower lobes on the CT done which could be aspiration versus atelectasis Repeat CT scan of abdomen and pelvis done on 08/06 showed gallbladder distention and also fluid collection likely exudative 08/06 patient underwent cholecystostomy and drainage of peritoneal abscess-cultures have been sent IR placed drain in abscess and right and gallbladder which are in place Gallbladder drain culture grew Enterococcus Abscess drain culture grew prevotella Patient was started on on Zyvox and meropenem Patient continues to have elevated WBC count and low-grade fevers 08/09 CT scan shows multiple peritoneal fluid collections. Although patient has drain in place, may not provide adequate source control due to multiple fluid locations. Recommend re-evaluation for abdominal washout due to persistent elevated WBC low-grade fevers. 08/10 repeat blood cultures sent 08/11 fungal blood culture were sent and patient was started on empiric micafungin 08/[address] of abdomen showed multiple intraperitoneal abscesses and worsening mass in right inguinal canal and right scrotum suggestive of infected hematoma 08/14 multiple (5) drains for placed in abdomen. Cultures growing Haemophilus parainfluenza 08/[address] scan IMPRESSION: 1. Multiple abdominal abscesses with interval improvement status post percutaneous drainage placement. 2. Small pleural effusions. 3. Bibasilar airspace opacities, consistent with atelectasis versus pneumonia. 4. Stable mass involving the right inguinal canal, probable infected hematoma. 08/16 will send repeat blood cultures, Weathers was changed, UA suggestive of UTI 08/17 patient remains febrile but WBC is down. Currently on broad-spectrum antibiotics and antifungals Treatment form of Zyvox kimberly
[2023-08-20] MEDS: PANTOPRAZOLE SODIUM IV 40 MG VIAL IV PUSH (09:26)
[2023-08-20] MEDS: BUMETANIDE INJ 1 MG/4 ML VIAL 2 MG IV PUSH (09:36)
[2023-08-20] MEDS: MICAFUNGIN SODIUM 100 MG in SODIUM CHLORIDE 0.9% IV 100 ML IVPB (09:45)
[2023-08-20] MEDS: MINERAL OIL/WHITE PETROLATUM OINTMENT 1 APPLIC EACH EYE ×2 (09:48→21:35)
--- NOTE | 2023-08-20 11:04 | PCNFU ---
Nutrition Follow-Up Complete: Swallowing Difficulties as related to mentation/risk of aspiration as evidenced by NPO. Goal: Meet estimated nutritional needs Patient will continue with current goal. Pt current nutrition is TPN. Last recorded weight is 105 kg, down from 108 kg on admit. Bowel Motility: +BM reported 08/20 Labs Reviewed:Mg 2.4, BUN 28, Alb 2.6,Na 130, Hct 32.1,Hgb 10.3 Meds Noted: Heparin, Synthroid, Protonix, Clinimix E at 70ml/hr with 250 ml of 20% Lipid Emulsion. Skin: WNL Additional Notes: Patient remains on mechanical vent. Multiple attempts for NGT. Plans to continue TPN at this time which is providing 1693 kcals/84 gms protein. Meeting 84% kcal needs at 25 kcal/kg and 86% protein needs at 1.2-1.4 kcal/kg. Will monitor weight, labs, skin, meds, TPN every Saturday and Saturday.
[2023-08-20 12:20] LABS: Glucose Point of Care 140 mg/dl (65-105)
--- NOTE | 2023-08-20 12:32 | PM.PNGS ---
Progress Note: A&P Assessment and Plan (1) Fever: Qualifiers: Fever type: unspecified Qualified Code(s): R50.9 - Fever, unspecified Code(s): R50.9 - Fever, unspecified Status: Acute Assessment and Plan: Fevers persist, generally peak at 38.1-38.3. I discussed with Dr. Peacock. Possibility of drug fever exists. He had already discussed this with the Infectious Disease pharmacist and the meropenem has been stopped. It has been replaced with cefepime and metronidazole. Plan is to continue the micafungin for a 14 day course which is not too many more days. Source of fever as ongoing infection seems somewhat unlikely as no imaging or clinical source exists. Hopefully the change in antibiotics will relieve this. (2) Hyponatremia: Code(s): E87.1 - Hypo-osmolality and hyponatremia Status: Acute Assessment and Plan: Orogastric tube replaced and plan to use salt tablets to correct. Discussed this with Dr. Peacock as well. (3) Abdominal abscess: Status: Acute Assessment and Plan: Abscesses seem well drained. Both 2. And 5. Have very little out in the last 5 days. I removed both of these drains. Will watch his progress and drain outputs. Very possible that numbers 1 and for could be removed in a couple of days. (4) Acute respiratory failure: Qualifiers: Respiratory failure complication: hypoxia and hypercapnia Qualified Code(s): J96.01 - Acute respiratory failure with hypoxia; J96.02 - Acute respiratory failure with hypercapnia Code(s): J96.00 - Acute respiratory failure, unspecified whether with hypoxia or hypercapnia Status: Acute Assessment and Plan: Oxygenation is good but not ventilating adequately to be discharged per Dr. Peacock. (5) Protein-calorie malnutrition, severe: Code(s): E43 - Unspecified severe protein-calorie malnutrition Status: Acute Assessment and Plan: Continuing TPN. May try some low rate tube feeding in a couple days if tolerates OG and fistula output remains low. 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 Two days ago, 60 cc in 24 hours. Yesterday 53 cc in 24 hours. Still appears to be enteric but output much less. (7) Cholecystitis: Code(s): K81.9 - Cholecystitis, unspecified Status: Acute Assessment and Plan: Cholecystostomy tube remains in good position with appropriate amount of bile coming out of the drain. Has been in place for 14 days. Will get cholecystogram sometime in the next week. (8) Paroxysmal atrial fibrillation: Code(s): I48.0 - Paroxysmal atrial fibrillation Status: Chronic Assessment and Plan: Remains on therapeutic dose of heparin Subjective Subjective Date/Time Seen: 08/20/23 12:32 Post Op day: #6 (Postop day 6 status post drainage multiple abdominal abscess percutaneously) Patient reports: bowel movement, fever (Moderate to low-grade fevers persist) and other (Remains intubated and sleepy but does nod to questions and occasionally writes to respond) Review of Systems Review of Systems: ROS unobtainable: Yes unobtainable due to endotracheal tube Exam Const: General: cooperative, awake, lethargic and tired appearing GI: Inspection: non-distended, incision (Drain outputs remain low) and other (Percutaneous drains #2 and #5 removed today.) GI Palp: Yes Soft to palpation, Yes Tenderness to palpation present (GI) (Mild diffuse tenderness), No Guarding due to palpation present (GI), No Hernia present, No Palpable mass present and No Rebound tenderness present Auscultation: Hypoactive bowel sounds present : Male General Exam: Yes other (Right groin incision looks good, postop hematoma smaller.) Penis: Yes edematous (Edematous and somewhat retracted into the scrotum) Scrotum: edematous Urinary Catheter: Urinary
--- NOTE | 2023-08-20 13:14 | PM.IMPN ---
Progress Note: A&P Assessment and Plan (1) Respiratory failure: Code(s): J96.90 - Respiratory failure, unspecified, unspecified whether with hypoxia or hypercapnia Status: Acute Assessment and Plan: Patient had acute respiratory failure earlier felt to be multifactorial due to fluid overload, possible aspiration pneumonia vs atelectasis. CXR 08/09 showed mild pulm edema, small left pleural effusion, right opacities worsening concerning for pneumonia--CT less concerning for PNA. MRSA swab negative 08/09: Linezolid added to cover Enterococcus species growing from cholecystostomy tube Lasix then Bumex was given with improved resp status. Weaned to room air. He remained on IV Bumex. ------ On the morning of 08/15, patient developed acute respiratory distress. ABG 7.37/62/58 so BiPAP ordered Repeat ABG 7.15/101/91 so patient intubated. CXR reviewed showing diffuse lung disease c/w edema vs PNA vs atelectasis Cumulative fluid balance at that time was +2.7L with excellent UOP past few days prior to admission. Consider pulmonary edema vs ARDS vs aspiration but NPO so felt less likely. Good UOP. Bumex held for 2 days but resumed 08/18 CXR today showing clear right lung with left base linear atelectasis Sedation is off. Breathing trials underway. Extubate when able. Appreciate network operations manager input (2) Sepsis: Qualifiers: Acute renal failure type: unspecified Sepsis acute organ dysfunction status: with acute organ dysfunction Sepsis type: sepsis due to unspecified organism Severe sepsis acute organ dysfunction type: acute renal failure Severe sepsis shock status: without septic shock Qualified Code(s): A41.9 - Sepsis, unspecified organism; R65.20 - Severe sepsis without septic shock; N17.9 - Acute kidney failure, unspecified Code(s): A41.9 - Sepsis, unspecified organism Status: Acute Assessment and Plan: Currently being treated for cholecystitis + pelvic abscesses UCx 08/05, 08/06, 08/16 negative GB Cx 08/06 growing enterococcus but unable to perform sensitivities Abscess Cx 08/06 Prevotella that is beta-lactamase positive BCx 08/06 negative. MRSA nasal swab 08/09 negative BCx 08/10 negative. Fungal cx 08/[address] A/P 08/13 showing multiple intraperitoneal abscesses similar to 08/09 with worsening mass involving the right inguinal canal and right scrotum. 08/14: Multiple Abd drains placed with culture growing H. parainfluenza and prevotella BCx 08/[address] A/P 08/18 slight increase in fluid collection adjacent to LLQ pigtail drain measuring 3 cm, other fluid collections are either stable or slightly smaller in size, stable right groin infected hematoma, cystitis versus bladder wall thickening, Weathers catheter in place but balloon not visualized and mild fecal impaction. Tx with meropenem, linezolid. Micafungin added 08/11 he completed a course of linezolid stopped 08/19. meropenem changed to Cefepime and Flagyl. Continue micafungin Remains febrile - Drug fever from micafungin? WBC 9-11 range past few days. Levophed off now Appears to be improving now that we have better source control GenSurg considering removing some drains (3) Cholecystitis: Code(s): K81.9 - Cholecystitis, unspecified Status: Acute Assessment and Plan: Cholecystostomy fluid drained and tube placed 08/06 Culture growing Enterococcus species but unable to perform sensitivities. Discussed with infectious disease pharmacist, initiated on linezolid 08/09 due to resistance patterns Completed 10 day course of Linezolid 08/19 Cholecystostomy tube management per GenSurg (4) Pelvic abscess in male: Code(s): K65.1 - Peritoneal abscess Status: Acute Assessment and Plan: Pelvic drain placed 08/06 Culture growing prevotella species, currently being treated with meropenem Multiple (5) new abdominal drains placed 08/14 and culture results as above All drain outputs minimal Continue IV abx
[2023-08-20] MEDS: ASPIRIN 81 MG CHEWABLE TABLET 162 MG PO (13:32)
[2023-08-20] MEDS: AMINO ACIDS 5%/D15W/E-LYTES/CA 2,000 ML with MULTIVITAMINS-12 INJ VIAL 1 2.5 ML, MULTIV... 70 ML IV CONT (14:26)
[2023-08-20] MEDS: FAT EMULSIONS IV 20% 250 ML 20.83 ML IVPB (14:30)
[2023-08-20] MEDS: CEFEPIME 2 GM/NS 50 ML 2 GM/50 ML BAG IVPB ×2 (14:36→21:34)
[2023-08-20] MEDS: metroNIDAZOLE 500 MG/ISO 100ML 500 MG/100 ML BAG 100 MG IVPB ×2 (15:20→22:02)
[2023-08-20 16:51] LABS: Glucose Point of Care 138 mg/dl (65-105)
[2023-08-20] MEDS: ACETAMINOPHEN ELIXIR 325 MG/10.15 ML UDC 650 MG FEED TUBE (17:56)
[2023-08-21] VITALS (22 sets, daily range): BP systolic 87–105; BP diastolic 55–71; PULSE 77–101; RESP 15–30; TEMP 37.8–38.3; O2SAT 94–100
[2023-08-21 00:52] LABS: Glucose Point of Care 154 mg/dl (65-105)
[2023-08-21] MEDS: ACETAMINOPHEN ELIXIR 325 MG/10.15 ML UDC 650 MG FEED TUBE (02:51)
[2023-08-21 05:59] LABS: Alveolar/Arterial O2 Gradient 69.9 mmHg; Base Excess ABG 7.2 mEq/l (+/-2.0); Carboxyhemoglobin 0.3 % THb (0-2.0); Device VENTILATOR; Fractional Inspired Oxygen 30 %; HCO3 ABG 31.2 mEq/l (22.0-26.0); Methemoglobin ABG 0.2 %THb (0-1.5); Modified Allen's Test Unable to perform; Oxygen Content ABG 16.1 %vol (16.0-22.0); Oxygen Saturation ABG 97.7 % (95.0-100.0); Oxyhemoglobin 96.4 % THb (90.0-100.0); PCO2 ABG 41.9 mmHg (35.0-45.0); PO2 ABG 94.8 mmHg (80.0-100.0); PO2 FiO2 Ratio Arterial Blood 3.16 %; Reduced Hemoglobin 3.1 %THb (0-5.0); Site Drawn RIGHT RADIAL; Total Hemoglobin 11.8 g/dL (12.0-18.0)
[2023-08-21 06:00] LABS: Arterial Blood Gas PEEP 8 cmH2O; Arterial Blood Gas Tidal Volume 420 ml; Arterial Blood Gas Vent Mode CMV; Arterial Blood Gas Ventilator rate 15 /MIN
[2023-08-21 06:33] LABS: Hematocrit 33.5 % (42.0-52.0); Hemoglobin 10.6 g/dL (14.0-18.0); Mean Corpuscular HGB Conc 31.6 g/dl (32-36); Mean Corpuscular Hemoglobin 31.2 pg (26-34); Mean Corpuscular Volume 98.5 fl (80-100); Mean Platelet Volume 10.4 fl (7.4-10.4); Platelet Count Result 357 k/mm3 (150-375); Red Cell Distribution Width 14.8 % (11.5-14.5); White Blood Count 10.5 K/mm3 (4.5-10.0)
[2023-08-21] MEDS: LEVOTHYROXINE SODIUM INJ 100 MCG/5 ML VIAL 50 MCG IV PUSH (06:54)
[2023-08-21] MEDS: CEFEPIME 2 GM/NS 50 ML 2 GM/50 ML BAG IVPB ×3 (06:54→20:40)
[2023-08-21] MEDS: CENTRAL LINE FLUSH 10 ML IV PUSH ×3 (06:55→20:41)
[2023-08-21] MEDS: metroNIDAZOLE 500 MG/ISO 100ML 500 MG/100 ML BAG 100 MG IVPB ×3 (06:55→20:40)
[2023-08-21 06:56] LABS: Anion Gap 4 mmol/L (8-16); Blood Urea Nitrogen 28 mg/dL (9-20); Calcium 7.7 mg/dL (8.4-10.2); Carbon Dioxide 34 mmol/L (22-30); Chloride 91 mmol/L (98-107); Estimated CRCL calculation 76 ml/min; Estimated Glomerular Filt Rate > 60; Glucose 175 mg/dL (65-110); Magnesium 2.5 mg/dL (1.6-2.3); Phosphorus 3.2 mg/dL (2.5-4.5); Potassium 4.1 mmol/L (3.4-5.0); Sodium 129 mmol/L (137-145); Triglycerides 89 mg/dL (<150)
[2023-08-21 07:35] LABS: Partial Thromboplastin Time 128.6 SECONDS (22.3-36.8)
[2023-08-21] MEDS: ASPIRIN 81 MG CHEWABLE TABLET 162 MG PO (08:25)
[2023-08-21] MEDS: SODIUM CHLORIDE 500 MG TABLET PO ×2 (08:26→17:12)
[2023-08-21] MEDS: BUMETANIDE INJ 1 MG/4 ML VIAL 2 MG IV PUSH (08:27)
[2023-08-21] MEDS: PANTOPRAZOLE SODIUM IV 40 MG VIAL IV PUSH (08:27)
[2023-08-21] MEDS: MINERAL OIL/WHITE PETROLATUM OINTMENT 1 APPLIC EACH EYE ×2 (08:52→20:40)
--- NOTE | 2023-08-21 10:33 | P.PNINT_ITS ---
Progress Note: A&P Assessment and Plan (1) Acute respiratory failure: Qualifiers: Respiratory failure complication: hypoxia and hypercapnia Qualified Code(s): J96.01 - Acute respiratory failure with hypoxia; J96.02 - Acute respiratory failure with hypercapnia Code(s): J96.00 - Acute respiratory failure, unspecified whether with hypoxia or hypercapnia Status: Acute Assessment and Plan: Acute hypoxic and hypercarbic respiratory failure. Chest x-ray shows diffuse lung disease most likely which improved with diuretics. ABG chest x-ray and ventilator settings reviewed this morning 08/17 Patient placed on PSV but failed quickly due to high RSBI. PSV increased to 15/8 to get adequate RSBI. Patient tolerated that for many hours It appears the patient is severely deconditioned and weak 08/18 will re try PSV again today. Continue Bumex to manage the fluid balance 08/19 patient placed on PSV again today. Patient either had low rate on high pressure support or low tidal volume lower pressure support. I was able to get adequate RSBI on 06/30. This is better than what he has done in the past but still good enough for extubation. I will continue pressure support ventilation as tolerated through the day and try to wean down pressure support. 08/20 patient placed on PSV again and can only get adequate RSBI on 06/30. If extubated patient will need and NIPPV which because of his deconditioning and fluctuating mental status may not be good option. Will continue PSV as tolerated today Antibiotics as below Low tidal volume management (2) Sepsis: Qualifiers: Sepsis type: sepsis due to unspecified organism Sepsis acute organ dysfunction status: with acute organ dysfunction Severe sepsis acute organ dysfunction type: acute renal failure Acute renal failure type: unspecified Severe sepsis shock status: without septic shock Qualified Code(s): A41.9 - Sepsis, unspecified organism; R65.20 - Severe sepsis without septic shock; N17.9 - Acute kidney failure, unspecified Code(s): A41.9 - Sepsis, unspecified organism Status: Acute Assessment and Plan: Secondary to peritonitis. Patient also appears to have consolidation of the lower lobes on the CT done which could be aspiration versus atelectasis Repeat CT scan of abdomen and pelvis done on 08/06 showed gallbladder distention and also fluid collection likely exudative 08/06 patient underwent cholecystostomy and drainage of peritoneal abscess- cultures have been sent IR placed drain in abscess and right and gallbladder which are in place Gallbladder drain culture grew Enterococcus Abscess drain culture grew prevotella Patient was started on on Zyvox and meropenem Patient continues to have elevated WBC count and low-grade fevers 08/09 CT scan shows multiple peritoneal fluid collections. Although patient has drain in place, may not provide adequate source control due to multiple fluid locations. Recommend re-evaluation for abdominal washout due to persistent elevated WBC low-grade fevers. 08/10 repeat blood cultures sent 08/11 fungal blood culture were sent and patient was started on empiric micafungin 08/[address] of abdomen showed multiple intraperitoneal abscesses and worsening mass in right inguinal canal and right scrotum suggestive of infected hematoma 08/14 multiple (5) drains for placed in abdomen. Cultures growing Haemophilus parainfluenza 08/[address] scan IMPRESSION: 1. Multiple abdominal abscesses with interval improvement status post percutaneous drainage placement. 2. Small pleural effusions. 3. Bibasilar airspace opacities, consistent with atelectasis versus pneumonia. 4. Stabl
[2023-08-21] MEDS: HEPARIN SOD/D5W 100 UNITS/ML 25,000 UNITS/250 ML BAG 16 UNITS IV CONT (10:56)
[2023-08-21 11:04] LABS: Lipase 89 U/L (23-300)
[2023-08-21 11:44] LABS: Glucose Point of Care 123 mg/dl (65-105)
--- NOTE | 2023-08-21 14:05 | PCFNICU ---
ICU Rounding Note: Pt current nutrition is Vital AF 1.2 at 20 ml/hr. Last recorded weight is 105 kg, down from 108 kg on admit. Bowel Motility:+BM reported 08/20 Labs Reviewed:Mg 2.5, BUN 28, Na 129 Meds Noted:Protonix, Synthroid,Heparin, Flagyl, Clinimix E at 70 ml/hr with 250 ml 20% Lipid Emulsion. Skin: WNL Additional Notes: Patient remains on mechanical vent. Breathing trial today. Trickle feedings starting today of Vital AF 1.2 at 20 ml/hr. TPN continues at this time. Will continue to monitor. Following daily in ICU rounds. Will monitor weight, labs, skin, meds, TPN every Saturday and Saturday.
--- NOTE | 2023-08-21 14:06 | PM.PNGS ---
Progress Note: A&P Assessment and Plan (1) Fever: Qualifiers: Fever type: unspecified Qualified Code(s): R50.9 - Fever, unspecified Code(s): R50.9 - Fever, unspecified Status: Acute Assessment and Plan: Fevers persist today. His antibiotics were changed yesterday from meropenem to cefepime and metronidazole. Plan to finish a 14-day course of the micafungin before discontinuing. Will continue to monitor a change in fevers after adjusting his medication with concern that this could be a drug fever. Another set of blood cx obtained today. No infectious source on imaging or clinically that would suggest a cause for the fevers. (2) Hyponatremia: Code(s): E87.1 - Hypo-osmolality and hyponatremia Status: Acute Assessment and Plan: Sodium trending down. OG placed yesterday and started on sodium chloride tablets today. Continue to monitor labs. (3) Abdominal abscess: Status: Acute Assessment and Plan: Drains #2 and 5 were removed yesterday. Will continue to monitor the output of his drains and potentially remove another 1-2 drains in the next few days depending on output. (4) Acute respiratory failure: Qualifiers: Respiratory failure complication: hypoxia and hypercapnia Qualified Code(s): J96.01 - Acute respiratory failure with hypoxia; J96.02 - Acute respiratory failure with hypercapnia Code(s): J96.00 - Acute respiratory failure, unspecified whether with hypoxia or hypercapnia Status: Acute Assessment and Plan: Continue vent management per Certified Green Building Engineer. (5) Protein-calorie malnutrition, severe: Code(s): E43 - Unspecified severe protein-calorie malnutrition Status: Acute Assessment and Plan: Drain #3/fistula output remains low. Okay to start trickle tube feedings today through his OG today. Will continue TPN until we know he is tolerating tube feedings closer to a goal rate. 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 Will try starting trickle tube feedings today and continue to monitor the output. (7) Cholecystitis: Code(s): K81.9 - Cholecystitis, unspecified Status: Acute Assessment and Plan: S/p cholecystostomy tube placement on 08/06. This has been in place two weeks and we will plan on getting a cholecystogram likely within the next week. Continue to monitor. (8) Paroxysmal atrial fibrillation: Code(s): I48.0 - Paroxysmal atrial fibrillation Status: Chronic Assessment and Plan: Remains on therapeutic dose of heparin Plan I have discussed the patient's case and plan of care with Dr. Armijo. Subjective Subjective Date/Time Seen: 08/21/23 10:06 Post Op day: 7 (status post drainage multiple abdominal abscess percutaneously) Patient reports: bowel movement and fever (moderate to low-grade fevers persist) Interval history: Patient still intubated in the ICU and off sedation. His is at the bedside. He wakes up and opens his eyes and will nod to questions appropriately and follow commands. Review of Systems Review of Systems: ROS unobtainable: Yes unobtainable due to endotracheal tube Exam Const: General: lethargic and tired appearing GI: Inspection: non-distended GI Palp: Yes Soft to palpation, Yes Tenderness to palpation present (GI), No Guarding due to palpation present (GI), No Hernia present and No Rebound tenderness present Auscultation: Hypoactive bowel sounds present Other: RUQ cholecystostomy tube with bilious output Percutaneous drains with low output, the LLQ drain #3 with scant brown drainage that contains the enterocutaneous fistula, gauze dressing dry and intact in the central lower abdomen where two perc drains were removed yesterday : Male Gene
[2023-08-21 14:32] LABS: Partial Thromboplastin Time 75.3 SECONDS (22.3-36.8)
[2023-08-21 14:41] LABS: Anion Gap 5 mmol/L (8-16); Blood Urea Nitrogen 28 mg/dL (9-20); Calcium 7.8 mg/dL (8.4-10.2); Carbon Dioxide 34 mmol/L (22-30); Chloride 92 mmol/L (98-107); Estimated CRCL calculation 68 ml/min; Estimated Glomerular Filt Rate > 60; Glucose 118 mg/dL (65-110); Potassium 4.5 mmol/L (3.4-5.0); Sodium 131 mmol/L (137-145)
[2023-08-21] MEDS: FAT EMULSIONS IV 20% 250 ML 20.83 ML IVPB (14:43)
[2023-08-21] MEDS: AMINO ACIDS 5%/D15W/E-LYTES/CA 2,000 ML with MULTIVITAMINS-12 INJ VIAL 1 2.5 ML, MULTIV... 70 ML IV CONT (14:49)
[2023-08-21 18:40] LABS: Glucose Point of Care 145 mg/dl (65-105)
[2023-08-21 21:12] LABS: Partial Thromboplastin Time 61.6 SECONDS (22.3-36.8)
[2023-08-21] MEDS: HEPARIN SODIUM 5,000 UNITS/ML VIAL 3500 UNITS IV PUSH (21:17)
[2023-08-22] VITALS (26 sets, daily range): BP systolic 86–116; BP diastolic 58–75; PULSE 82–104; RESP 15–29; TEMP 37.8–38.6; O2SAT 97–100
[2023-08-22 01:02] LABS: Glucose Point of Care 162 mg/dl (65-105)
[2023-08-22] MEDS: ACETAMINOPHEN ELIXIR 325 MG/10.15 ML UDC 650 MG FEED TUBE ×2 (01:38→20:18)
[2023-08-22] MEDS: HEPARIN SOD/D5W 100 UNITS/ML 25,000 UNITS/250 ML BAG 18 UNITS IV CONT ×2 (01:53→20:21)
[2023-08-22 04:47] LABS: Basophils Absolute Auto 0.1 K/mm3 (0.0-0.1); Basophils Percent Auto 0.4 % (0.2-1.2); Eosinophils Absolute Auto 0.3 K/mm3 (0-0.3); Eosinophils Percent Auto 2.6 % (0-4.4); Hematocrit 32.8 % (42.0-52.0); Hemoglobin 10.3 g/dL (14.0-18.0); Immature Granulocyte Absolute 0.28 K/mm3 (0.00-0.031); Immature Granulocyte Percent A 2.5 % (0-0.5); Lymphocytes Absolute Auto 1.02 K/mm3 (0.9-3.2); Mean Corpuscular HGB Conc 31.4 g/dl (32-36); Mean Corpuscular Hemoglobin 30.7 pg (26-34); Mean Corpuscular Volume 97.6 fl (80-100); Mean Platelet Volume 10.3 fl (7.4-10.4); Monocytes Absolute Auto 0.9 K/mm3 (0.1-0.6); Monocytes Percent Auto 8.3 % (2.6-8.5); Neutrophils Absolute Auto 8.7 K/mm3 (1.3-6.7); Neutrophils Percent Auto 77.2 % (45.5-73.1); Platelet Count Result 334 k/mm3 (150-375); Red Blood Count 3.36 M/mm3 (4.6-6.20); Red Cell Distribution Width 14.7 % (11.5-14.5); White Blood Count 11.3 K/mm3 (4.5-10.0)
[2023-08-22 04:57] LABS: Alanine Aminotransferase 42 U/L (6-50); Albumin Level 2.8 g/dL (3.5-5.1); Alkaline Phosphatase 196 U/L (38-126); Anion Gap 5 mmol/L (8-16); Aspartate Amino Transferase 38 U/L (17-59); Bilirubin,Total 1.5 mg/dL (0.2-1.3); Blood Urea Nitrogen 33 mg/dL (9-20); Calcium 7.7 mg/dL (8.4-10.2); Carbon Dioxide 30 mmol/L (22-30); Chloride 93 mmol/L (98-107); Estimated CRCL calculation 77 ml/min; Estimated Glomerular Filt Rate > 60; Glucose 159 mg/dL (65-110); Magnesium 2.6 mg/dL (1.6-2.3); Potassium 4.2 mmol/L (3.4-5.0); Sodium 128 mmol/L (137-145)
[2023-08-22 05:02] LABS: Partial Thromboplastin Time 91.3 SECONDS (22.3-36.8)
[2023-08-22] MEDS: CENTRAL LINE FLUSH 10 ML IV PUSH ×3 (05:10→20:23)
[2023-08-22] MEDS: LEVOTHYROXINE SODIUM INJ 100 MCG/5 ML VIAL 50 MCG IV PUSH (05:47)
[2023-08-22 05:48] LABS: Alveolar/Arterial O2 Gradient 76.1 mmHg; Base Excess ABG 6.3 mEq/l (+/-2.0); Carboxyhemoglobin 0.3 % THb (0-2.0); Fractional Inspired Oxygen 30 %; HCO3 ABG 30.1 mEq/l (22.0-26.0); Methemoglobin ABG 0.2 %THb (0-1.5); Oxygen Content ABG 16.2 %vol (16.0-22.0); Oxygen Saturation ABG 97.4 % (95.0-100.0); Oxyhemoglobin 96.1 % THb (90.0-100.0); PCO2 ABG 40.5 mmHg (35.0-45.0); PO2 ABG 90.2 mmHg (80.0-100.0); PO2 FiO2 Ratio Arterial Blood 3.01 %; Reduced Hemoglobin 3.4 %THb (0-5.0); Total Hemoglobin 11.9 g/dL (12.0-18.0); pH ABG 7.489 (7.350-7.450)
[2023-08-22] MEDS: CEFEPIME 2 GM/NS 50 ML 2 GM/50 ML BAG IVPB ×3 (05:48→20:19)
[2023-08-22] MEDS: metroNIDAZOLE 500 MG/ISO 100ML 500 MG/100 ML BAG 100 MG IVPB ×3 (05:48→20:19)
[2023-08-22 05:52] LABS: Device VENTILATOR; Modified Allen's Test Pass; Site Drawn RIGHT RADIAL
[2023-08-22 05:53] LABS: Arterial Blood Gas PEEP 8 cmH2O; Arterial Blood Gas Tidal Volume 420 ml; Arterial Blood Gas Vent Mode CMV; Arterial Blood Gas Ventilator rate 15 /MIN
[2023-08-22] MEDS: SODIUM CHLORIDE 500 MG TABLET PO ×2 (08:53→17:31)
[2023-08-22] MEDS: ASPIRIN 81 MG CHEWABLE TABLET 162 MG PO (08:53)
[2023-08-22] MEDS: BUMETANIDE INJ 1 MG/4 ML VIAL 2 MG IV PUSH (08:54)
[2023-08-22] MEDS: PANTOPRAZOLE SODIUM IV 40 MG VIAL IV PUSH (08:54)
[2023-08-22] MEDS: MICAFUNGIN SODIUM 100 MG in SODIUM CHLORIDE 0.9% IV 100 ML IVPB (08:54)
[2023-08-22] MEDS: MINERAL OIL/WHITE PETROLATUM OINTMENT 1 APPLIC EACH EYE ×2 (08:55→20:19)
--- NOTE | 2023-08-22 09:30 | WPDINTPN ---
Progress Note: A&P Assessment and Plan (1) Acute respiratory failure: Qualifiers: Respiratory failure complication: hypoxia and hypercapnia Qualified Code(s): J96.01 - Acute respiratory failure with hypoxia; J96.02 - Acute respiratory failure with hypercapnia Code(s): J96.00 - Acute respiratory failure, unspecified whether with hypoxia or hypercapnia Status: Acute Assessment and Plan: Acute hypoxic and hypercarbic respiratory failure. Chest x-ray shows diffuse lung disease most likely which improved with diuretics. ABG chest x-ray and ventilator settings reviewed this morning 08/17 Patient placed on PSV but failed quickly due to high RSBI. PSV increased to 15/8 to get adequate RSBI. Patient tolerated that for many hours It appears the patient is severely deconditioned and weak 08/18 will re try PSV again today. Continue Bumex to manage the fluid balance 08/19 patient placed on PSV again today. Patient either had low rate on high pressure support or low tidal volume lower pressure support. I was able to get adequate RSBI on 06/30. This is better than what he has done in the past but still good enough for extubation. I will continue pressure support ventilation as tolerated through the day and try to wean down pressure support. 08/20 patient placed on PSV again and can only get adequate RSBI on 06/30. If extubated patient will need and NIPPV which because of his deconditioning and fluctuating mental status may not be good option. Will continue PSV as tolerated today Antibiotics as below Low tidal volume management -08/21, patient placed on pressure support ventilation 08/27, respiratory rate was low with decreased tidal volumes, placed on ASV mode, patient's respiratory rate remained low patient was placed back on CMV mode, will try again today (2) Sepsis: Qualifiers: Sepsis type: sepsis due to unspecified organism Sepsis acute organ dysfunction status: with acute organ dysfunction Severe sepsis acute organ dysfunction type: acute renal failure Acute renal failure type: unspecified Severe sepsis shock status: without septic shock Qualified Code(s): A41.9 - Sepsis, unspecified organism; R65.20 - Severe sepsis without septic shock; N17.9 - Acute kidney failure, unspecified Code(s): A41.9 - Sepsis, unspecified organism Status: Acute Assessment and Plan: Secondary to peritonitis. Patient also appears to have consolidation of the lower lobes on the CT done which could be aspiration versus atelectasis Repeat CT scan of abdomen and pelvis done on 08/06 showed gallbladder distention and also fluid collection likely exudative 08/06 patient underwent cholecystostomy and drainage of peritoneal abscess-cultures have been sent IR placed drain in abscess and right and gallbladder which are in place Gallbladder drain culture grew Enterococcus Abscess drain culture grew prevotella Patient was started on on Zyvox and meropenem Patient continues to have elevated WBC count and low-grade fevers 08/09 CT scan shows multiple peritoneal fluid collections. Although patient has drain in place, may not provide adequate source control due to multiple fluid locations. Recommend re-evaluation for abdominal washout due to persistent elevated WBC low-grade fevers. 08/10 repeat blood cultures sent 08/11 fungal blood culture were sent and patient was started on empiric micafungin 08/[address] of abdomen showed multiple intraperitoneal abscesses and worsening mass in right inguinal canal and right scrotum suggestive of infected hematoma 08/14 multiple (5) drains for placed in abdomen. Cultures growing Haemophilus parainfluenza 08/[address] scan IMPRESSION: 1. Multiple abdominal abscesses with interval improvement status post percutaneous drainage placement. 2. Small pleural effusions. 3. Bibasilar airspace opacities, consistent with atelectasis versus pneumonia. 4. Stable mass involving the right inguinal canal, proba
[2023-08-22 12:02] LABS: Glucose Point of Care 199 mg/dl (65-105)
[2023-08-22 14:30] LABS: Partial Thromboplastin Time 37.9 SECONDS (22.3-36.8)
--- NOTE | 2023-08-22 14:38 | PCFNICU ---
ICU Rounding Note: Pt current nutrition is Vital AF 1.2 at 20 ml/hr and TPN at 70 ml/hr. Last recorded weight is 105.6 kg, down from 108 kg on admit. Bowel Motility:+Bm reported 08/22 Labs Reviewed:Glu 159, BUN 33, Na 128 Meds Noted:Heparin, Synthroid, Flagyl,Protonix, Bumex, Clinimix E at 70 ml/hr with 250 ml of 20% lipid emulsion. Skin:WNL Additional Notes: patient remains on mechanical vent. Tube feedings are being tolerated at 20 ml/hr. Recommend goal rate at 70 ml/hr increasing by 10 ml q 4 hours and stopping TPN per MD orders. Following daily in ICU rounds. Will monitor weight, labs, skin, meds, TPN every Saturday and Saturday.
[2023-08-22] MEDS: FAT EMULSIONS IV 20% 250 ML 20.83 ML IVPB (14:55)
[2023-08-22] MEDS: AMINO ACIDS 5%/D15W/E-LYTES/CA 2,000 ML with MULTIVITAMINS-12 INJ VIAL 1 2.5 ML, MULTIV... 70 ML IV CONT (14:55)
--- NOTE | 2023-08-22 15:31 | PM.PNGS ---
Progress Note: A&P Assessment and Plan (1) Fever: Qualifiers: Fever type: unspecified Qualified Code(s): R50.9 - Fever, unspecified Code(s): R50.9 - Fever, unspecified Status: Acute Assessment and Plan: Fevers went up today, and his WBC count went up and there is a left shift. Repeated a CT scan of the abdomen and pelvis. There are no residual fluid collections in the area of the percutaneous drains and there are no new fluid collections. The right groin hematoma appears stable and does not have any clinical signs of infection. Unfortunately, the etiology of the fever is still unclear. The output from drain #3 that contains the fistula did increase significantly over the past 24 hours, but there does not appear to be any fluid around the drain on CT. Will stop tube feedings and continue the TPN. Continue ICU management and monitor closely. (2) Hyponatremia: Code(s): E87.1 - Hypo-osmolality and hyponatremia Status: Acute Assessment and Plan: Na 128 this morning, continue NaCl tablets. Monitor labs. (3) Abdominal abscess: Status: Acute Assessment and Plan: There are 4 remaining percutaneous drains with repeat CT showing no residual fluid collections around the drains. Monitor drain output. Could consider removing more drains in the next few days if there is still minimal to no output. (4) Acute respiratory failure: Qualifiers: Respiratory failure complication: hypoxia and hypercapnia Qualified Code(s): J96.01 - Acute respiratory failure with hypoxia; J96.02 - Acute respiratory failure with hypercapnia Code(s): J96.00 - Acute respiratory failure, unspecified whether with hypoxia or hypercapnia Status: Acute Assessment and Plan: Continue vent management per Detective Captain. (5) Protein-calorie malnutrition, severe: Code(s): E43 - Unspecified severe protein-calorie malnutrition Status: Acute Assessment and Plan: Continue TPN. 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 Will stop the tube feedings and continue TPN. Continue to monitor drain output. (7) Cholecystitis: Code(s): K81.9 - Cholecystitis, unspecified Status: Acute Assessment and Plan: S/p cholecystostomy tube placement on 08/06. This has been in place for over two weeks and we will plan on getting a cholecystogram likely within the next week. Continue to monitor. (8) Paroxysmal atrial fibrillation: Code(s): I48.0 - Paroxysmal atrial fibrillation Status: Chronic Assessment and Plan: Remains on therapeutic dose of heparin Plan I have discussed the patient's case and plan of care with Dr. Armijo. Subjective Subjective Date/Time Seen: 08/22/23 15:31 Post Op day: 8 (status post drainage multiple abdominal abscess percutaneously) Patient reports: bowel movement and fever Interval history: Patient still intubated in the ICU and off sedation. His is at the bedside. He wakes up and opens his eyes and will nod to questions appropriately and follow commands. Review of Systems Review of Systems: ROS unobtainable: Yes unobtainable due to endotracheal tube Exam Const: General: lethargic and tired appearing GI: Inspection: non-distended GI Palp: Yes Soft to palpation, No Tenderness to palpation present (GI) and No Guarding due to palpation present (GI) Auscultation: normal bowel sounds Other: RUQ cholecystostomy tube with bilious output Percutaneous drains with low output, the LLQ drain #3 with increased output over the past 24 hours and appears more enteric, gauze dressing dry and intact in the central lower abdomen where two perc drains were removed yesterday : Male General Exam: Yes edema, No hernia and Yes other (Right g
[2023-08-22 17:30] LABS: Glucose Point of Care 155 mg/dl (65-105)
[2023-08-22 21:00] LABS: Partial Thromboplastin Time 79.5 SECONDS (22.3-36.8)
[2023-08-23] VITALS (29 sets, daily range): BP systolic 82–118; BP diastolic 65–76; PULSE 83–115; RESP 16–36; TEMP 37.6–38.6; O2SAT 95–100
[2023-08-23 00:14] LABS: Glucose Point of Care 155 mg/dl (65-105)
[2023-08-23] MEDS: [UNRECOGNIZED DRUG - REMARK] 1 EACH XX (00:20)
[2023-08-23 04:40] LABS: Basophils Absolute Auto 0.1 K/mm3 (0.0-0.1); Basophils Percent Auto 0.4 % (0.2-1.2); Eosinophils Absolute Auto 0.3 K/mm3 (0-0.3); Eosinophils Percent Auto 1.9 % (0-4.4); Hematocrit 33.4 % (42.0-52.0); Hemoglobin 10.5 g/dL (14.0-18.0); Immature Granulocyte Absolute 0.42 K/mm3 (0.00-0.031); Immature Granulocyte Percent A 3.1 % (0-0.5); Lymphocytes Absolute Auto 1.05 K/mm3 (0.9-3.2); Lymphocytes Percent Auto 7.8 % (18.3-44.2); Mean Corpuscular HGB Conc 31.4 g/dl (32-36); Mean Corpuscular Hemoglobin 30.9 pg (26-34); Mean Corpuscular Volume 98.2 fl (80-100); Mean Platelet Volume 10.4 fl (7.4-10.4); Monocytes Percent Auto 7.2 % (2.6-8.5); Neutrophils Absolute Auto 10.6 K/mm3 (1.3-6.7); Neutrophils Percent Auto 79.6 % (45.5-73.1); Platelet Count Result 355 k/mm3 (150-375); Red Cell Distribution Width 14.8 % (11.5-14.5); White Blood Count 13.4 K/mm3 (4.5-10.0)
[2023-08-23 04:46] LABS: Partial Thromboplastin Time 61.2 SECONDS (22.3-36.8)
[2023-08-23 04:57] LABS: Alanine Aminotransferase 33 U/L (6-50); Albumin Level 2.8 g/dL (3.5-5.1); Alkaline Phosphatase 188 U/L (38-126); Anion Gap 6 mmol/L (8-16); Aspartate Amino Transferase 34 U/L (17-59); Bilirubin,Total 1.2 mg/dL (0.2-1.3); Blood Urea Nitrogen 34 mg/dL (9-20); Calcium 7.9 mg/dL (8.4-10.2); Carbon Dioxide 30 mmol/L (22-30); Chloride 93 mmol/L (98-107); Estimated CRCL calculation 76 ml/min; Estimated Glomerular Filt Rate > 60; Glucose 149 mg/dL (65-110); Magnesium 2.7 mg/dL (1.6-2.3); Phosphorus 3.2 mg/dL (2.5-4.5); Potassium 4.2 mmol/L (3.4-5.0); Sodium 129 mmol/L (137-145)
[2023-08-23] MEDS: HEPARIN SODIUM 5,000 UNITS/ML VIAL 3500 UNITS IV PUSH (05:04)
[2023-08-23] MEDS: CENTRAL LINE FLUSH 10 ML IV PUSH ×3 (05:09→21:21)
[2023-08-23 05:45] LABS: Alveolar/Arterial O2 Gradient 62.7 mmHg; Base Excess ABG 6.4 mEq/l (+/-2.0); Carboxyhemoglobin 0.7 % THb (0-2.0); Fractional Inspired Oxygen 30 %; HCO3 ABG 31.6 mEq/l (22.0-26.0); Methemoglobin ABG 0.3 %THb (0-1.5); Oxygen Content ABG 17.4 %vol (16.0-22.0); Oxygen Saturation ABG 97.4 % (95.0-100.0); PCO2 ABG 47.8 mmHg (35.0-45.0); PO2 FiO2 Ratio Arterial Blood 3.17 %; Total Hemoglobin 12.8 g/dL (12.0-18.0); pH ABG 7.438 (7.350-7.450)
[2023-08-23 05:51] LABS: Arterial Blood Gas PEEP 8 cmH2O; Arterial Blood Gas Vent Mode CMV; Arterial Blood Gas Ventilator rate 15 /MIN; Device VENTILATOR; Modified Allen's Test Pass; Site Drawn LEFT RADIAL
[2023-08-23 05:52] LABS: Arterial Blood Gas Tidal Volume 420 ml
[2023-08-23] MEDS: CEFEPIME 2 GM/NS 50 ML 2 GM/50 ML BAG IVPB (06:00)
[2023-08-23] MEDS: metroNIDAZOLE 500 MG/ISO 100ML 500 MG/100 ML BAG 100 MG IVPB (06:35)
[2023-08-23] MEDS: LEVOTHYROXINE SODIUM INJ 100 MCG/5 ML VIAL 50 MCG IV PUSH (06:51)
[2023-08-23] MEDS: ALBUTEROL SULFATE NEB 2.5 MG/3 ML INH INHALATION ×3 (07:31→20:13)
[2023-08-23] MEDS: IPRATROPIUM BR 0.02% INH SOLN 0.5 MG/2.5 ML VIAL INHALATION ×3 (07:31→20:13)
[2023-08-23] MEDS: BUMETANIDE INJ 1 MG/4 ML VIAL 2 MG IV PUSH (07:47)
[2023-08-23] MEDS: ASPIRIN 81 MG CHEWABLE TABLET 162 MG PO (07:47)
[2023-08-23] MEDS: SODIUM CHLORIDE 500 MG TABLET PO ×2 (07:47→18:13)
[2023-08-23] MEDS: MINERAL OIL/WHITE PETROLATUM OINTMENT 1 APPLIC EACH EYE ×2 (07:47→21:21)
[2023-08-23] MEDS: PANTOPRAZOLE SODIUM IV 40 MG VIAL IV PUSH (07:47)
[2023-08-23] MEDS: ACETAMINOPHEN ELIXIR 325 MG/10.15 ML UDC 650 MG FEED TUBE ×2 (07:47→23:00)
[2023-08-23] MEDS: MICAFUNGIN SODIUM 100 MG in SODIUM CHLORIDE 0.9% IV 100 ML IVPB (08:09)
[2023-08-23] MEDS: HEPARIN SOD/D5W 100 UNITS/ML 25,000 UNITS/250 ML BAG 20 UNITS IV CONT (08:09)
--- NOTE | 2023-08-23 08:21 | WPDINTPN ---
Progress Note: A&P Assessment and Plan (1) Acute respiratory failure: Qualifiers: Respiratory failure complication: hypoxia and hypercapnia Qualified Code(s): J96.01 - Acute respiratory failure with hypoxia; J96.02 - Acute respiratory failure with hypercapnia Code(s): J96.00 - Acute respiratory failure, unspecified whether with hypoxia or hypercapnia Status: Acute Assessment and Plan: Acute hypoxic and hypercarbic respiratory failure. Chest x-ray shows diffuse lung disease most likely which improved with diuretics. ABG chest x-ray and ventilator settings reviewed this morning 08/17 Patient placed on PSV but failed quickly due to high RSBI. PSV increased to 15/8 to get adequate RSBI. Patient tolerated that for many hours It appears the patient is severely deconditioned and weak 08/18 will re try PSV again today. Continue Bumex to manage the fluid balance 08/19 patient placed on PSV again today. Patient either had low rate on high pressure support or low tidal volume lower pressure support. I was able to get adequate RSBI on 06/30. This is better than what he has done in the past but still good enough for extubation. I will continue pressure support ventilation as tolerated through the day and try to wean down pressure support. 08/20 patient placed on PSV again and can only get adequate RSBI on 06/30. If extubated patient will need and NIPPV which because of his deconditioning and fluctuating mental status may not be good option. Will continue PSV as tolerated today Antibiotics as below Low tidal volume management -08/21, patient placed on pressure support ventilation 08/27, respiratory rate was low with decreased tidal volumes, placed on ASV mode, patient's respiratory rate remained low patient was placed back on CMV mode, will try again today -08/22: Patient tolerated PSV 10/5 for approximately 6-7 hours after which the tidal volumes were low, patient seemed to be tired and weak and was placed on CMV mode 08/23: Will try again on pressure support ventilation today (2) Sepsis: Qualifiers: Sepsis type: sepsis due to unspecified organism Sepsis acute organ dysfunction status: with acute organ dysfunction Severe sepsis acute organ dysfunction type: acute renal failure Acute renal failure type: unspecified Severe sepsis shock status: without septic shock Qualified Code(s): A41.9 - Sepsis, unspecified organism; R65.20 - Severe sepsis without septic shock; N17.9 - Acute kidney failure, unspecified Code(s): A41.9 - Sepsis, unspecified organism Status: Acute Assessment and Plan: Secondary to peritonitis. Patient also appears to have consolidation of the lower lobes on the CT done which could be aspiration versus atelectasis Repeat CT scan of abdomen and pelvis done on 08/06 showed gallbladder distention and also fluid collection likely exudative 08/06 patient underwent cholecystostomy and drainage of peritoneal abscess-cultures have been sent IR placed drain in abscess and right and gallbladder which are in place Gallbladder drain culture grew Enterococcus Abscess drain culture grew prevotella Patient was started on on Zyvox and meropenem Patient continues to have elevated WBC count and low-grade fevers 08/09 CT scan shows multiple peritoneal fluid collections. Although patient has drain in place, may not provide adequate source control due to multiple fluid locations. Recommend re-evaluation for abdominal washout due to persistent elevated WBC low-grade fevers. 08/10 repeat blood cultures sent 08/11 fungal blood culture were sent and patient was started on empiric micafungin 08/[address] of abdomen showed multiple intraperitoneal abscesses and worsening mass in right inguinal canal and right scrotum suggestive of infected hematoma 08/14 multiple (5) drains for placed in abdomen. Cultures growing Haemophilus parainfluenza 08/[address] scan IMPRESSION: 1. Multiple abdominal abscesses with inte
[2023-08-23 08:28] LABS: Triglycerides 93 mg/dL (<150)
[2023-08-23 11:14] LABS: Partial Thromboplastin Time 108.6 SECONDS (22.3-36.8)
[2023-08-23] MEDS: PIPERACILLIN/TAZ 4.5G/NS 100ML 4.5 GM/100 ML BAG IVPB ×2 (11:20→18:13)
--- NOTE | 2023-08-23 11:21 | PCNFU ---
Nutrition Follow-Up Complete: Swallowing Difficulties as related to mentation/risk of aspiration as evidenced by NPO. Goal: Meet estimated nutritional needs Patient will continue current goal. Pt current nutrition is TPN. Last recorded weight is 104.3 kg, down from 108 kg on admit. Bowel Motility:+Bm reported 08/23 Labs Reviewed:Glu 149, Mg 2.7,Na 129, BUN 34 Meds Noted:Synthroid, Heparin, Meropenem, Clinimix E at 70 ml/hr with 250 ml of 20% Lipid Emulsion. Skin: WNL Additional Notes: Patient remains on mechanical vent. Vent settings are being adjusted per Dental Scheduling Coordinator. Surgery reporting the output from drain with fistula has increased significantly over the past 24 hours. Tube feedings have been discontinued. TPN continues at 70 ml/hr with Lipids providing 1693 kcals/84 gms protein which meets 84% kcal needs and 87% protein needs. Agree with diet orders at this time. Will monitor weight, labs, skin, meds, TPN every Saturday and Saturday.
[2023-08-23 11:50] LABS: Glucose Point of Care 165 mg/dl (65-105)
[2023-08-23] MEDS: FAT EMULSIONS IV 20% 250 ML 20.83 ML IVPB (13:40)
[2023-08-23] MEDS: AMINO ACIDS 5%/D15W/E-LYTES/CA 2,000 ML with MULTIVITAMINS-12 INJ VIAL 1 2.5 ML, MULTIV... 70 ML IV CONT (13:41)
--- NOTE | 2023-08-23 17:23 | PM.PNGS ---
Progress Note: A&P Assessment and Plan (1) Abdominal abscess: Status: Acute Assessment and Plan: Drain outputs continue to decrease. I removed drain 1. Today. Drain number four can probably be removed soon. CT scan 08/22/2023 did not show any further drainable collections. Right groin hematoma felt to be stable. Levaquin and metronidazole antibiotics have been stopped. Patient now on Zosyn and continues on micafungin. 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 Not a large output. (3) Protein-calorie malnutrition, severe: Code(s): E43 - Unspecified severe protein-calorie malnutrition Status: Acute Assessment and Plan: Continue TPN per recommendations (4) Fever: Qualifiers: Fever type: unspecified Qualified Code(s): R50.9 - Fever, unspecified Code(s): R50.9 - Fever, unspecified Status: Acute Assessment and Plan: Etiology not entirely clear. Continue present antibiotics and antifungal agents (5) Acute respiratory failure: Qualifiers: Respiratory failure complication: hypoxia and hypercapnia Qualified Code(s): J96.01 - Acute respiratory failure with hypoxia; J96.02 - Acute respiratory failure with hypercapnia Code(s): J96.00 - Acute respiratory failure, unspecified whether with hypoxia or hypercapnia Status: Acute (6) Atrial fibrillation with rapid ventricular response: Code(s): I48.91 - Unspecified atrial fibrillation Status: Acute Assessment and Plan: Remains on therapeutic heparin drip. Subjective Subjective Date/Time Seen: 08/23/23 17:23 Patient reports: fever and other (Still on mechanical ventilator) Interval history: Patient was awake almost all of the day but is sleeping at this time. Still running some fevers but temperature curve has been down trending last 3-4 days. Review of Systems Review of Systems: ROS unobtainable: Yes unobtainable due to endotracheal tube Exam Const: General: patient obtunded GI: Inspection: incision (Ecchymosis around right groin incision with palpable hematoma, no erythema) GI Palp: Yes Firmness to palpation present (GI) and No Tenderness to palpation present (GI) Auscultation: Hypoactive bowel sounds present : Male General Exam: Yes other (Inguinal incision looks about the same, some ecchymosis, hematoma palpable) Scrotum: edematous (Unchanged) Urinary Catheter: Urinary Catheter: patent and draining Objective Data Vital Signs Vital Signs: Vital Signs - 24 hr 08/22/23 20:18 08/22/23 20:00 08/22/23 20:00 Temperature 38.3 C H Pulse Rate 89 Respiratory Rate 18 Blood Pressure Pulse Oximetry 100 Oxygen Delivery Mechanical Ventilation Fraction of Inspired Oxygen 30 30 08/22/23 20:00 08/22/23 20:00 08/22/23 22:00 Temperature 38.3 C H 38.1 C H Pulse Rate 91 91 96 Respiratory Rate 19 17 Blood Pressure 94/62 L 94/62 L Pulse Oximetry 100 100 Oxygen Delivery Fraction of Inspired Oxygen 08/22/23 21:18 08/22/23 23:44 08/22/23 23:44 Temperature 38.1 C H Pulse Rate 94 Respiratory Rate 17 Blood Pressure Pulse Oximetry 100 Oxygen Delivery Mechanical Ventilation Fraction of Inspired Oxygen 30 30 08/22/23 23:52 08/23/23 00:00 08/22/23 20:55 Temperature 37.8 C H Pulse Rate 89 88 92 Respiratory Rate 18 Blood Pressure 116/75 Pulse Oximetry 100 98 Oxygen Delivery Mechanical Ventilation Fraction of Inspired Oxygen 30 08/22/23 23:10 08/23/23 01:32 08/23/23 02:08 Temperature 37.7 C H Pulse Rate 84 85 88 Respiratory Rate 18 Blood Pressure 97/68 L Pulse Oximetry 98 100 98 Oxygen Delivery Mechanical Ventilation Mechanical Ventilation Fraction of Inspired Oxygen 30 30 08/23/23 04:00 08/23/23 04:00 08/23/23 04:00 Temperature
[2023-08-23 18:25] LABS: Glucose Point of Care 154 mg/dl (65-105)
[2023-08-23 18:58] LABS: Partial Thromboplastin Time 97.3 SECONDS (22.3-36.8)
[2023-08-23] MEDS: HEPARIN SOD/D5W 100 UNITS/ML 25,000 UNITS/250 ML BAG 18 UNITS IV CONT (21:21)
[2023-08-24] VITALS (27 sets, daily range): BP systolic 84–109; BP diastolic 55–77; PULSE 76–113; RESP 15–29; TEMP 37.9–38.4; O2SAT 96–100
[2023-08-24] MEDS: PIPERACILLIN/TAZ 4.5G/NS 100ML 4.5 GM/100 ML BAG IVPB ×5 (00:30→23:54)
[2023-08-24 00:54] LABS: Glucose Point of Care 167 mg/dl (65-105)
[2023-08-24 01:29] LABS: Partial Thromboplastin Time 151.7 SECONDS (22.3-36.8)
[2023-08-24] MEDS: ALBUTEROL SULFATE NEB 2.5 MG/3 ML INH INHALATION ×4 (02:50→21:00)
[2023-08-24] MEDS: IPRATROPIUM BR 0.02% INH SOLN 0.5 MG/2.5 ML VIAL INHALATION ×4 (02:50→21:00)
[2023-08-24 05:19] LABS: Alveolar/Arterial O2 Gradient 126.8 mmHg; Base Excess ABG 7.9 mEq/l (+/-2.0); Fractional Inspired Oxygen 30 %; HCO3 ABG 32.5 mEq/l (22.0-26.0); Oxygen Content ABG 15.8 %vol (16.0-22.0); Oxygen Saturation ABG 98.1 % (95.0-100.0); Oxyhemoglobin 96.8 % THb (90.0-100.0); PCO2 ABG 45.3 mmHg (35.0-45.0); PO2 ABG 104.8 mmHg (80.0-100.0); PO2 FiO2 Ratio Arterial Blood 3.49 %; Total Hemoglobin 11.5 g/dL (12.0-18.0); pH ABG 7.473 (7.350-7.450)
[2023-08-24 05:21] LABS: Device VENTILATOR; Modified Allen's Test Pass; Site Drawn LEFT RADIAL
[2023-08-24 05:22] LABS: Arterial Blood Gas PEEP 8 cmH2O; Arterial Blood Gas Tidal Volume 420 ml; Arterial Blood Gas Vent Mode CMV; Arterial Blood Gas Ventilator rate 15 /MIN
[2023-08-24 06:44] LABS: Hematocrit 31.6 % (42.0-52.0); Mean Corpuscular HGB Conc 31.6 g/dl (32-36); Mean Corpuscular Hemoglobin 30.7 pg (26-34); Mean Corpuscular Volume 96.9 fl (80-100); Mean Platelet Volume 10.3 fl (7.4-10.4); Platelet Count Result 333 k/mm3 (150-375); Red Blood Count 3.26 M/mm3 (4.6-6.20); Red Cell Distribution Width 14.9 % (11.5-14.5); White Blood Count 12.8 K/mm3 (4.5-10.0)
[2023-08-24] MEDS: LEVOTHYROXINE SODIUM INJ 100 MCG/5 ML VIAL 50 MCG IV PUSH (06:53)
[2023-08-24] MEDS: CENTRAL LINE FLUSH 10 ML IV PUSH ×3 (06:54→21:07)
[2023-08-24 06:55] LABS: Alanine Aminotransferase 28 U/L (6-50); Albumin Level 2.7 g/dL (3.5-5.1); Alkaline Phosphatase 182 U/L (38-126); Anion Gap 6 mmol/L (8-16); Aspartate Amino Transferase 32 U/L (17-59); Bilirubin,Total 1.2 mg/dL (0.2-1.3); Blood Urea Nitrogen 35 mg/dL (9-20); Calcium 7.9 mg/dL (8.4-10.2); Carbon Dioxide 32 mmol/L (22-30); Chloride 94 mmol/L (98-107); Estimated CRCL calculation 72 ml/min; Estimated Glomerular Filt Rate > 60; Glucose 159 mg/dL (65-110); Magnesium 2.6 mg/dL (1.6-2.3); Phosphorus 3.5 mg/dL (2.5-4.5); Potassium 4.7 mmol/L (3.4-5.0); Sodium 132 mmol/L (137-145)
[2023-08-24] MEDS: SODIUM CHLORIDE 500 MG TABLET PO ×2 (08:38→17:17)
[2023-08-24] MEDS: MICAFUNGIN SODIUM 100 MG in SODIUM CHLORIDE 0.9% IV 100 ML IVPB (08:38)
[2023-08-24] MEDS: ASPIRIN 81 MG CHEWABLE TABLET 162 MG PO (08:38)
[2023-08-24] MEDS: MINERAL OIL/WHITE PETROLATUM OINTMENT 1 APPLIC EACH EYE ×2 (08:38→21:07)
[2023-08-24] MEDS: BUMETANIDE INJ 1 MG/4 ML VIAL 2 MG IV PUSH (08:38)
[2023-08-24] MEDS: PANTOPRAZOLE SODIUM IV 40 MG VIAL IV PUSH (08:38)
--- NOTE | 2023-08-24 09:04 | WPDINTPN ---
Progress Note: A&P Assessment and Plan (1) Acute respiratory failure: Qualifiers: Respiratory failure complication: hypoxia and hypercapnia Qualified Code(s): J96.01 - Acute respiratory failure with hypoxia; J96.02 - Acute respiratory failure with hypercapnia Code(s): J96.00 - Acute respiratory failure, unspecified whether with hypoxia or hypercapnia Status: Acute Assessment and Plan: Acute hypoxic and hypercarbic respiratory failure. Chest x-ray shows diffuse lung disease most likely which improved with diuretics. ABG chest x-ray and ventilator settings reviewed this morning 08/17 Patient placed on PSV but failed quickly due to high RSBI. PSV increased to 15/8 to get adequate RSBI. Patient tolerated that for many hours It appears the patient is severely deconditioned and weak 08/18 will re try PSV again today. Continue Bumex to manage the fluid balance 08/19 patient placed on PSV again today. Patient either had low rate on high pressure support or low tidal volume lower pressure support. I was able to get adequate RSBI on 06/30. This is better than what he has done in the past but still good enough for extubation. I will continue pressure support ventilation as tolerated through the day and try to wean down pressure support. 08/20 patient placed on PSV again and can only get adequate RSBI on 06/30. If extubated patient will need and NIPPV which because of his deconditioning and fluctuating mental status may not be good option. Will continue PSV as tolerated today Antibiotics as below Low tidal volume management -08/21, patient placed on pressure support ventilation 08/27, respiratory rate was low with decreased tidal volumes, placed on ASV mode, patient's respiratory rate remained low patient was placed back on CMV mode, will try again today -08/22: Patient tolerated PSV 10/5 for approximately 6-7 hours after which the tidal volumes were low, patient seemed to be tired and weak and was placed on CMV mode 08/23: Tolerated PSV 8/5 for approximately 3 hours, and had to be placed on CMV mode as dropped his tidal volumes and was tachypneic 08/24: Place patient on PSV 10/5, will switch to 8/5 and evaluate for extubation. Will diurese today with Lasix 40 mg IV x1 (2) Sepsis: Qualifiers: Sepsis type: sepsis due to unspecified organism Sepsis acute organ dysfunction status: with acute organ dysfunction Severe sepsis acute organ dysfunction type: acute renal failure Acute renal failure type: unspecified Severe sepsis shock status: without septic shock Qualified Code(s): A41.9 - Sepsis, unspecified organism; R65.20 - Severe sepsis without septic shock; N17.9 - Acute kidney failure, unspecified Code(s): A41.9 - Sepsis, unspecified organism Status: Acute Assessment and Plan: Secondary to peritonitis. Patient also appears to have consolidation of the lower lobes on the CT done which could be aspiration versus atelectasis Repeat CT scan of abdomen and pelvis done on 08/06 showed gallbladder distention and also fluid collection likely exudative 08/06 patient underwent cholecystostomy and drainage of peritoneal abscess-cultures have been sent IR placed drain in abscess and right and gallbladder which are in place Gallbladder drain culture grew Enterococcus Abscess drain culture grew prevotella Patient was started on on Zyvox and meropenem Patient continues to have elevated WBC count and low-grade fevers 08/09 CT scan shows multiple peritoneal fluid collections. Although patient has drain in place, may not provide adequate source control due to multiple fluid locations. Recommend re-evaluation for abdominal washout due to persistent elevated WBC low-grade fevers. 08/10 repeat blood cultures sent 08/11 fungal blood culture were sent and patient was started on empiric micafungin 08/[address] of abdomen showed multiple intraperitoneal abscesses and worsening mass in right inguinal canal and right scrotum sug
[2023-08-24] MEDS: FUROSEMIDE INJ 40 MG/4 ML VIAL IV PUSH (09:17)
[2023-08-24 09:42] LABS: Partial Thromboplastin Time 48.5 SECONDS (22.3-36.8)
[2023-08-24] MEDS: HEPARIN SODIUM 5,000 UNITS/ML VIAL 4000 UNITS IV PUSH (09:51)
--- NOTE | 2023-08-24 10:14 | PM.PNGS ---
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 Status: Acute Assessment and Plan: cont TPN for now, IV abx, mgmt c drain (2) Abdominal abscess: Status: Acute Assessment and Plan: cont drains and abx, WBC sl decreased today Subjective Subjective Date/Time Seen: 08/24/23 10:14 Interval history: no acute issues overnight Review of Systems Review of Systems: ROS unobtainable: Yes unobtainable due to endotracheal tube Exam Const: General: ill appearing Resp: Auscultation: diminished lung sounds Cardio: Rate: tachycardic Rhythm: regular rhythm GI: Inspection: normal to inspection, distended and incision GI Palp: Yes abdominal tenderness, Yes Soft to palpation and Yes Tenderness to palpation present (GI) Other: perc ye c bilious output # 4 YOEL c s/s output #3 c/w EC fistula $6 c scant output Objective Data Vital Signs Vital Signs: Vital Signs - 24 hr 08/23/23 10:44 08/23/23 10:45 08/23/23 11:34 Temperature Pulse Rate 101 H 99 Respiratory Rate 22 H Blood Pressure Pulse Oximetry 99 100 Oxygen Delivery Mechanical Ventilation Mechanical Ventilation Fraction of Inspired Oxygen 30 30 30 08/23/23 11:36 08/23/23 12:00 08/23/23 12:00 Temperature 37.6 C Pulse Rate 103 H 97 Respiratory Rate 21 H Blood Pressure 82/74 L Pulse Oximetry 99 Oxygen Delivery Fraction of Inspired Oxygen 30 08/23/23 13:15 08/23/23 13:15 08/23/23 13:25 Temperature Pulse Rate 92 92 102 H Respiratory Rate 16 18 Blood Pressure Pulse Oximetry 99 Oxygen Delivery Mechanical Ventilation Fraction of Inspired Oxygen 30 08/23/23 14:00 08/23/23 14:00 08/23/23 16:05 Temperature 37.6 C H Pulse Rate 115 H 115 H 90 Respiratory Rate 25 H Blood Pressure 108/72 Pulse Oximetry 100 100 Oxygen Delivery Mechanical Ventilation Fraction of Inspired Oxygen 30 08/23/23 16:00 08/23/23 16:00 08/23/23 16:00 Temperature Pulse Rate 95 95 Respiratory Rate 25 H Blood Pressure Pulse Oximetry 100 Oxygen Delivery Mechanical Ventilation Fraction of Inspired Oxygen 30 30 08/23/23 16:00 08/23/23 18:00 08/23/23 18:00 Temperature 37.6 C H 37.6 C H Pulse Rate 95 89 91 Respiratory Rate 25 H 17 Blood Pressure 113/73 118/73 Pulse Oximetry 100 100 Oxygen Delivery Fraction of Inspired Oxygen 08/23/23 20:04 08/23/23 20:14 08/23/23 20:00 Temperature Pulse Rate 91 83 83 Respiratory Rate 17 17 Blood Pressure Pulse Oximetry 100 100 Oxygen Delivery Mechanical Ventilation Mechanical Ventilation Fraction of Inspired Oxygen 30 30 08/23/23 20:00 08/23/23 20:00 08/23/23 20:00 Temperature 37.7 C H Pulse Rate 87 87 Respiratory Rate 18 Blood Pressure 106/68 Pulse Oximetry 100 Oxygen Delivery Fraction of Inspired Oxygen 30 08/23/23 22:00 08/23/23 22:00 08/23/23 23:12 Temperature 38.3 C H Pulse Rate 92 91 89 Respiratory Rate 19 Blood Pressure 113/70 Pulse Oximetry 100 100 Oxygen Delivery Mechanical Ventilation Fraction of Inspired Oxygen 30 08/24/23 00:00 08/24/23 00:00 08/24/23 00:00 Temperature Pulse Rate 90 84 Respiratory Rate 19 Blood Pressure Pulse Oximetry 100 Oxygen Delivery Mechanical Ventilation Fraction of Inspired Oxygen 30 30 08/24/23 00:00 08/24/23 02:50 08/24/23 02:50 Temperature 38.4 C H Pulse Rate 90 84 84 Respiratory Rate 19 19 Blood Pressure 100/67 Pulse Oximetry 100 100 Oxygen Delivery Mechanical Ventilation Fraction of Inspired Oxygen 30 08/24/23 04:00 08/24/23 04:00 08/24/23 04:00 Temperature 37.9 C H Pulse Rate 87 76 Respiratory Rate 23 H 23 H Blood Pressure 104/61 Pulse Oximetry 100 98 Oxygen Delivery Mechanical Ventilation Fraction of Inspired Oxygen 30 30 08/24/23 05:05 08/24/23 02:00 08/24/23 04:00 Temperature Pulse Rate 8
[2023-08-24 12:06] LABS: Glucose Point of Care 171 mg/dl (65-105)
[2023-08-24] MEDS: SODIUM CHLORIDE 0.9% IV 500 ML IV CONT (12:25)
[2023-08-24] MEDS: HEPARIN SOD/D5W 100 UNITS/ML 25,000 UNITS/250 ML BAG 19 UNITS IV CONT (13:53)
[2023-08-24] MEDS: AMINO ACIDS 5%/D15W/E-LYTES/CA 2,000 ML with MULTIVITAMINS-12 INJ VIAL 1 2.5 ML, MULTIV... 70 ML IV CONT (15:03)
[2023-08-24] MEDS: FAT EMULSIONS IV 20% 250 ML 20.83 ML IVPB (15:03)
[2023-08-24] MEDS: ACETAMINOPHEN ELIXIR 325 MG/10.15 ML UDC 650 MG FEED TUBE (15:20)
[2023-08-24 17:25] LABS: Glucose Point of Care 166 mg/dl (65-105)
[2023-08-24 17:35] LABS: Partial Thromboplastin Time 78.7 SECONDS (22.3-36.8)
[2023-08-25] VITALS (33 sets, daily range): BP systolic 88–128; BP diastolic 59–74; PULSE 82–108; RESP 8–27; TEMP 37.6–38.5; O2SAT 98–100
[2023-08-25] MEDS: ACETAMINOPHEN ELIXIR 325 MG/10.15 ML UDC 650 MG FEED TUBE ×3 (00:03→21:50)
[2023-08-25 00:07] LABS: Glucose Point of Care 151 mg/dl (65-105)
[2023-08-25 00:26] LABS: Partial Thromboplastin Time 74.8 SECONDS (22.3-36.8)
[2023-08-25] MEDS: ALBUTEROL SULFATE NEB 2.5 MG/3 ML INH INHALATION ×4 (02:29→20:34)
[2023-08-25] MEDS: IPRATROPIUM BR 0.02% INH SOLN 0.5 MG/2.5 ML VIAL INHALATION ×4 (02:30→20:34)
[2023-08-25] MEDS: HEPARIN SOD/D5W 100 UNITS/ML 25,000 UNITS/250 ML BAG 19 UNITS IV CONT (02:40)
[2023-08-25 05:11] LABS: Base Excess ABG 6.4 mEq/l (+/-2.0); Fractional Inspired Oxygen 30 %; HCO3 ABG 31.1 mEq/l (22.0-26.0); Oxygen Content ABG 17.8 %vol (16.0-22.0); Oxygen Saturation ABG 98.1 % (95.0-100.0); Oxyhemoglobin 96.9 % THb (90.0-100.0); PCO2 ABG 44.6 mmHg (35.0-45.0); PO2 ABG 106.5 mmHg (80.0-100.0); PO2 FiO2 Ratio Arterial Blood 3.55 %; pH ABG 7.461 (7.350-7.450)
[2023-08-25] MEDS: PIPERACILLIN/TAZ 4.5G/NS 100ML 4.5 GM/100 ML BAG IVPB ×3 (06:15→18:55)
[2023-08-25] MEDS: CENTRAL LINE FLUSH 10 ML IV PUSH ×3 (06:20→21:50)
[2023-08-25] MEDS: LEVOTHYROXINE SODIUM INJ 100 MCG/5 ML VIAL 50 MCG IV PUSH (06:20)
[2023-08-25 06:32] LABS: Partial Thromboplastin Time 63.9 SECONDS (22.3-36.8)
[2023-08-25 07:05] LABS: Glucose Point of Care 161 mg/dl (65-105)
[2023-08-25 07:25] LABS: Triglycerides 98 mg/dL (<150)
[2023-08-25] MEDS: ASPIRIN 81 MG CHEWABLE TABLET 162 MG PO (08:47)
[2023-08-25] MEDS: SODIUM CHLORIDE 500 MG TABLET PO ×2 (08:47→18:55)
[2023-08-25] MEDS: PANTOPRAZOLE SODIUM IV 40 MG VIAL IV PUSH (08:47)
[2023-08-25] MEDS: HEPARIN SODIUM 5,000 UNITS/ML VIAL 3500 UNITS IV PUSH (08:48)
[2023-08-25] MEDS: MICAFUNGIN SODIUM 100 MG in SODIUM CHLORIDE 0.9% IV 100 ML IVPB (08:48)
[2023-08-25] MEDS: MINERAL OIL/WHITE PETROLATUM OINTMENT 1 APPLIC EACH EYE ×2 (08:49→21:50)
--- NOTE | 2023-08-25 09:35 | WPDINTPN ---
Progress Note: A&P Assessment and Plan (1) Acute respiratory failure: Qualifiers: Respiratory failure complication: hypoxia and hypercapnia Qualified Code(s): J96.01 - Acute respiratory failure with hypoxia; J96.02 - Acute respiratory failure with hypercapnia Code(s): J96.00 - Acute respiratory failure, unspecified whether with hypoxia or hypercapnia Status: Acute Assessment and Plan: Acute hypoxic and hypercarbic respiratory failure. Chest x-ray shows diffuse lung disease most likely which improved with diuretics. ABG chest x-ray and ventilator settings reviewed this morning 08/17 Patient placed on PSV but failed quickly due to high RSBI. PSV increased to 15/8 to get adequate RSBI. Patient tolerated that for many hours It appears the patient is severely deconditioned and weak 08/18 will re try PSV again today. Continue Bumex to manage the fluid balance 08/19 patient placed on PSV again today. Patient either had low rate on high pressure support or low tidal volume lower pressure support. I was able to get adequate RSBI on 06/30. This is better than what he has done in the past but still good enough for extubation. I will continue pressure support ventilation as tolerated through the day and try to wean down pressure support. 08/20 patient placed on PSV again and can only get adequate RSBI on 06/30. If extubated patient will need and NIPPV which because of his deconditioning and fluctuating mental status may not be good option. Will continue PSV as tolerated today Antibiotics as below Low tidal volume management -08/21, patient placed on pressure support ventilation 08/27, respiratory rate was low with decreased tidal volumes, placed on ASV mode, patient's respiratory rate remained low patient was placed back on CMV mode, will try again today -08/22: Patient tolerated PSV 10/5 for approximately 6-7 hours after which the tidal volumes were low, patient seemed to be tired and weak and was placed on CMV mode 08/23: Tolerated PSV 8/5 for approximately 3 hours, and had to be placed on CMV mode as dropped his tidal volumes and was tachypneic 08/24: Patient tolerated PSV 10/5 for few hours and had increased work of breathing and decrease tidal volumes so was placed back on CMV mode -08/25: Will try ASV this morning Patient is on daily Bumex per surgery (2) Sepsis: Qualifiers: Acute renal failure type: unspecified Sepsis acute organ dysfunction status: with acute organ dysfunction Sepsis type: sepsis due to unspecified organism Severe sepsis acute organ dysfunction type: acute renal failure Severe sepsis shock status: without septic shock Qualified Code(s): A41.9 - Sepsis, unspecified organism; R65.20 - Severe sepsis without septic shock; N17.9 - Acute kidney failure, unspecified Code(s): A41.9 - Sepsis, unspecified organism Status: Acute Assessment and Plan: Secondary to peritonitis. Patient also appears to have consolidation of the lower lobes on the CT done which could be aspiration versus atelectasis Repeat CT scan of abdomen and pelvis done on 08/06 showed gallbladder distention and also fluid collection likely exudative 08/06 patient underwent cholecystostomy and drainage of peritoneal abscess-cultures have been sent IR placed drain in abscess and right and gallbladder which are in place Gallbladder drain culture grew Enterococcus Abscess drain culture grew prevotella Patient was started on on Zyvox and meropenem Patient continues to have elevated WBC count and low-grade fevers 08/09 CT scan shows multiple peritoneal fluid collections. Although patient has drain in place, may not provide adequate source control due to multiple fluid locations. Recommend re-evaluation for abdominal washout due to persistent elevated WBC low-grade fevers. 08/10 repeat blood cultures sent 08/11 fungal blood culture were sent and patient was started on empiric micafungin 08/[address] of abdomen showed multi
--- NOTE | 2023-08-25 11:19 | PM.PNGS ---
Progress Note: A&P Assessment and Plan (1) Abdominal abscess: Status: Acute Assessment and Plan: cont drains and abx, cont TPN (2) Acute respiratory failure: Qualifiers: Respiratory failure complication: hypoxia and hypercapnia Qualified Code(s): J96.01 - Acute respiratory failure with hypoxia; J96.02 - Acute respiratory failure with hypercapnia Code(s): J96.00 - Acute respiratory failure, unspecified whether with hypoxia or hypercapnia Status: Acute Assessment and Plan: cont to wean per phone technician Subjective Subjective Date/Time Seen: 08/25/23 11:19 Interval history: no acute issues overnight, doing breathing trial this am Review of Systems Review of Systems: ROS unobtainable: Yes unobtainable due to endotracheal tube Exam Const: General: no acute distress and ill appearing Resp: Auscultation: diminished lung sounds Cardio: Rate: regular rate Rhythm: regular rhythm GI: Inspection: normal to inspection, distended and incision GI Palp: Yes abdominal tenderness, Yes Soft to palpation, Yes Tenderness to palpation present (GI), No Guarding due to palpation present (GI) and No Rigid due to palpation Other: drains c scant output Objective Data Vital Signs Vital Signs: Vital Signs - 24 hr 08/24/23 12:00 08/24/23 12:00 08/24/23 12:00 Temperature 38.2 C H Pulse Rate 101 H Respiratory Rate 23 H Blood Pressure 84/62 L Pulse Oximetry 99 100 Oxygen Delivery Mechanical Ventilation Fraction of Inspired Oxygen 30 30 08/24/23 14:36 08/24/23 14:42 08/24/23 14:00 Temperature Pulse Rate 112 H 104 H 113 H Respiratory Rate 17 20 Blood Pressure 91/55 L Pulse Oximetry 100 99 Oxygen Delivery Mechanical Ventilation Fraction of Inspired Oxygen 30 08/24/23 15:20 08/24/23 12:00 08/24/23 14:00 Temperature 38.2 C H Pulse Rate 109 H 103 H Respiratory Rate Blood Pressure Pulse Oximetry Oxygen Delivery Fraction of Inspired Oxygen 08/24/23 16:20 08/24/23 16:00 08/24/23 16:00 Temperature 38.2 C H 38.2 C H Pulse Rate 104 H Respiratory Rate 16 Blood Pressure 95/60 L Pulse Oximetry 97 99 Oxygen Delivery Mechanical Ventilation Fraction of Inspired Oxygen 30 08/24/23 16:00 08/24/23 17:35 08/24/23 18:00 Temperature 37.9 C H Pulse Rate 100 103 H Respiratory Rate 15 Blood Pressure 105/72 Pulse Oximetry 99 99 Oxygen Delivery Mechanical Ventilation Fraction of Inspired Oxygen 30 30 08/24/23 16:00 08/24/23 18:00 08/24/23 20:55 Temperature Pulse Rate 107 H 104 H 96 Respiratory Rate Blood Pressure Pulse Oximetry 98 Oxygen Delivery Mechanical Ventilation Fraction of Inspired Oxygen 30 08/24/23 20:00 08/24/23 20:00 08/24/23 20:00 Temperature Pulse Rate 95 Respiratory Rate Blood Pressure Pulse Oximetry 100 Oxygen Delivery Mechanical Ventilation Fraction of Inspired Oxygen 30 30 08/24/23 20:00 08/24/23 22:00 08/24/23 22:00 Temperature 37.9 C H 38.1 C H Pulse Rate 100 100 79 Respiratory Rate 18 21 H Blood Pressure 109/70 100/66 Pulse Oximetry 99 99 Oxygen Delivery Fraction of Inspired Oxygen 08/25/23 00:03 08/25/23 00:00 08/24/23 23:23 Temperature 38.3 C H 38.3 C H Pulse Rate 108 H 105 H Respiratory Rate 21 H Blood Pressure 106/64 Pulse Oximetry 99 99 Oxygen Delivery Mechanical Ventilation Fraction of Inspired Oxygen 30 08/24/23 20:55 08/24/23 21:08 08/25/23 00:00 Temperature Pulse Rate 96 98 Respiratory Rate 19 19 Blood Pressure Pulse Oximetry 99 Oxygen Delivery Mechanical Ventilation Fraction of Inspired Oxygen 30 08/25/23 00:00 08/25/23 01:23 08/25/23 00:00 Temperature 38.3 C H Pulse Rate 107 H Respiratory Rate Blood Pressure Pulse Oximetry Oxygen Delivery Fraction of Inspired Oxygen 30 08/25/23 02:30 08/25/23 02:28 08/25/23 03:18 Temperature 38.3 C
[2023-08-25 12:27] LABS: Glucose Point of Care 156 mg/dl (65-105)
[2023-08-25] MEDS: HEPARIN SOD/D5W 100 UNITS/ML 25,000 UNITS/250 ML BAG 21 UNITS IV CONT (14:56)
[2023-08-25] MEDS: FAT EMULSIONS IV 20% 250 ML 20.83 ML IVPB (14:57)
[2023-08-25] MEDS: AMINO ACIDS 5%/D15W/E-LYTES/CA 2,000 ML with MULTIVITAMINS-12 INJ VIAL 1 2.5 ML, MULTIV... 70 ML IV CONT (14:58)
[2023-08-25 18:57] LABS: Glucose Point of Care 152 mg/dl (65-105)
[2023-08-25 19:28] LABS: Partial Thromboplastin Time > 200.0 SECONDS (22.3-36.8)
[2023-08-25 23:59] LABS: Glucose Point of Care 149 mg/dl (65-105)
[2023-08-26] VITALS (30 sets, daily range): BP systolic 82–110; BP diastolic 56–74; PULSE 77–103; RESP 9–22; TEMP 37.4–38.3; O2SAT 99–100
[2023-08-26] MEDS: PIPERACILLIN/TAZ 4.5G/NS 100ML 4.5 GM/100 ML BAG IVPB ×2 (00:16→07:51)
[2023-08-26] MEDS: IPRATROPIUM BR 0.02% INH SOLN 0.5 MG/2.5 ML VIAL INHALATION ×4 (02:40→20:24)
[2023-08-26] MEDS: ALBUTEROL SULFATE NEB 2.5 MG/3 ML INH INHALATION ×4 (02:42→20:24)
[2023-08-26 03:15] LABS: Partial Thromboplastin Time 63.8 SECONDS (22.3-36.8)
[2023-08-26] MEDS: HEPARIN SODIUM 5,000 UNITS/ML VIAL 3500 UNITS IV PUSH ×2 (03:56→10:19)
[2023-08-26] MEDS: HEPARIN SOD/D5W 100 UNITS/ML 25,000 UNITS/250 ML BAG 20 UNITS IV CONT ×2 (05:05→16:42)
[2023-08-26 05:08] LABS: Basophils Absolute Auto 0.1 K/mm3 (0.0-0.1); Basophils Percent Auto 0.6 % (0.2-1.2); Eosinophils Absolute Auto 0.4 K/mm3 (0-0.3); Eosinophils Percent Auto 3.5 % (0-4.4); Hematocrit 30.1 % (42.0-52.0); Hemoglobin 9.4 g/dL (14.0-18.0); Immature Granulocyte Absolute 0.67 K/mm3 (0.00-0.031); Immature Granulocyte Percent A 5.6 % (0-0.5); Lymphocytes Absolute Auto 1.01 K/mm3 (0.9-3.2); Lymphocytes Percent Auto 8.4 % (18.3-44.2); Mean Corpuscular HGB Conc 31.2 g/dl (32-36); Mean Corpuscular Hemoglobin 30.3 pg (26-34); Mean Corpuscular Volume 97.1 fl (80-100); Mean Platelet Volume 10.8 fl (7.4-10.4); Monocytes Percent Auto 8.1 % (2.6-8.5); Neutrophils Absolute Auto 8.9 K/mm3 (1.3-6.7); Neutrophils Percent Auto 73.8 % (45.5-73.1); Platelet Count Result 357 k/mm3 (150-375); Red Cell Distribution Width 14.7 % (11.5-14.5)
[2023-08-26 05:18] LABS: INR 1.2; Prothrombin Time 15.6 Seconds (11.1-14.7)
[2023-08-26 05:20] LABS: Partial Thromboplastin Time 120.4 SECONDS (22.3-36.8)
[2023-08-26 05:23] LABS: Alanine Aminotransferase 32 U/L (6-50); Albumin Level 2.6 g/dL (3.5-5.1); Alkaline Phosphatase 254 U/L (38-126); Anion Gap 3 mmol/L (8-16); Aspartate Amino Transferase 58 U/L (17-59); Bilirubin,Total 1.7 mg/dL (0.2-1.3); Blood Urea Nitrogen 42 mg/dL (9-20); Calcium 7.9 mg/dL (8.4-10.2); Carbon Dioxide 32 mmol/L (22-30); Chloride 96 mmol/L (98-107); Estimated CRCL calculation 48 ml/min; Estimated Glomerular Filt Rate 48; Glucose 134 mg/dL (65-110); Magnesium 2.7 mg/dL (1.6-2.3); Phosphorus 3.8 mg/dL (2.5-4.5); Potassium 4.5 mmol/L (3.4-5.0); Sodium 131 mmol/L (137-145)
[2023-08-26] MEDS: CENTRAL LINE FLUSH 10 ML IV PUSH ×3 (05:29→21:07)
[2023-08-26] MEDS: ACETAMINOPHEN ELIXIR 325 MG/10.15 ML UDC 650 MG FEED TUBE ×2 (05:31→18:07)
[2023-08-26] MEDS: LEVOTHYROXINE SODIUM INJ 100 MCG/5 ML VIAL 50 MCG IV PUSH (05:34)
[2023-08-26 05:49] LABS: Alveolar/Arterial O2 Gradient 7.9 mmHg; Fractional Inspired Oxygen 30 %; HCO3 ABG 30.6 mEq/l (22.0-26.0); Oxygen Content ABG 15.9 %vol (16.0-22.0); Oxygen Saturation ABG 99.2 % (95.0-100.0); Oxyhemoglobin 97.8 % THb (90.0-100.0); PCO2 ABG 39.9 mmHg (35.0-45.0); PO2 ABG 159.1 mmHg (80.0-100.0); Total Hemoglobin 11.3 g/dL (12.0-18.0)
[2023-08-26 05:52] LABS: Device VENTILATOR; Modified Allen's Test Pass; Site Drawn RIGHT RADIAL; pH ABG 7.503 (7.350-7.450)
[2023-08-26 05:53] LABS: Arterial Blood Gas PEEP 5 cmH2O; Arterial Blood Gas Vent Mode ASV
[2023-08-26 06:02] LABS: Transferrin 168 mg/dL (206-381)
[2023-08-26] MEDS: SODIUM CHLORIDE 500 MG TABLET PO ×2 (08:21→16:27)
[2023-08-26] MEDS: ASPIRIN 81 MG CHEWABLE TABLET 162 MG PO (08:21)
[2023-08-26] MEDS: PANTOPRAZOLE SODIUM IV 40 MG VIAL IV PUSH (08:21)
[2023-08-26] MEDS: MINERAL OIL/WHITE PETROLATUM OINTMENT 1 APPLIC EACH EYE ×2 (08:21→20:54)
--- NOTE | 2023-08-26 09:20 | WPDINTPN ---
Progress Note: A&P Assessment and Plan (1) Acute respiratory failure: Qualifiers: Respiratory failure complication: hypoxia and hypercapnia Qualified Code(s): J96.01 - Acute respiratory failure with hypoxia; J96.02 - Acute respiratory failure with hypercapnia Code(s): J96.00 - Acute respiratory failure, unspecified whether with hypoxia or hypercapnia Status: Acute Assessment and Plan: Acute hypoxic and hypercarbic respiratory failure. Chest x-ray shows diffuse lung disease most likely which improved with diuretics. ABG chest x-ray and ventilator settings reviewed this morning 08/17 Patient placed on PSV but failed quickly due to high RSBI. PSV increased to 15/8 to get adequate RSBI. Patient tolerated that for many hours It appears the patient is severely deconditioned and weak 08/18 will re try PSV again today. Continue Bumex to manage the fluid balance 08/19 patient placed on PSV again today. Patient either had low rate on high pressure support or low tidal volume lower pressure support. I was able to get adequate RSBI on 06/30. This is better than what he has done in the past but still good enough for extubation. I will continue pressure support ventilation as tolerated through the day and try to wean down pressure support. 08/20 patient placed on PSV again and can only get adequate RSBI on 06/30. If extubated patient will need and NIPPV which because of his deconditioning and fluctuating mental status may not be good option. Will continue PSV as tolerated today Antibiotics as below Low tidal volume management -08/21, patient placed on pressure support ventilation 08/27, respiratory rate was low with decreased tidal volumes, placed on ASV mode, patient's respiratory rate remained low patient was placed back on CMV mode, will try again today -08/22: Patient tolerated PSV 10/5 for approximately 6-7 hours after which the tidal volumes were low, patient seemed to be tired and weak and was placed on CMV mode 08/23: Tolerated PSV 8/5 for approximately 3 hours, and had to be placed on CMV mode as dropped his tidal volumes and was tachypneic 08/24: Patient tolerated PSV 10/5 for few hours and had increased work of breathing and decrease tidal volumes so was placed back on CMV mode -08/25: Tolerated pressure support ventilation 10/5 all day long and was switched to ASV overnight -08/26: Will try PSV 04/27 today Patient is on daily Bumex per surgery (2) Sepsis: Qualifiers: Sepsis type: sepsis due to unspecified organism Sepsis acute organ dysfunction status: with acute organ dysfunction Severe sepsis acute organ dysfunction type: acute renal failure Acute renal failure type: unspecified Severe sepsis shock status: without septic shock Qualified Code(s): A41.9 - Sepsis, unspecified organism; R65.20 - Severe sepsis without septic shock; N17.9 - Acute kidney failure, unspecified Code(s): A41.9 - Sepsis, unspecified organism Status: Acute Assessment and Plan: Secondary to peritonitis. Patient also appears to have consolidation of the lower lobes on the CT done which could be aspiration versus atelectasis Repeat CT scan of abdomen and pelvis done on 08/06 showed gallbladder distention and also fluid collection likely exudative 08/06 patient underwent cholecystostomy and drainage of peritoneal abscess-cultures have been sent IR placed drain in abscess and right and gallbladder which are in place Gallbladder drain culture grew Enterococcus Abscess drain culture grew prevotella Patient was started on on Zyvox and meropenem Patient continues to have elevated WBC count and low-grade fevers 08/09 CT scan shows multiple peritoneal fluid collections. Although patient has drain in place, may not provide adequate source control due to multiple fluid locations. Recommend re-evaluation for abdominal washout due to persistent elevated WBC low-grade fevers. 08/10 repeat blood cultures sent 08/11 fungal blood cultur
[2023-08-26] MEDS: BUMETANIDE INJ 1 MG/4 ML VIAL 2 MG IV PUSH (09:49)
[2023-08-26 10:16] LABS: Partial Thromboplastin Time 69.3 SECONDS (22.3-36.8)
--- NOTE | 2023-08-26 10:57 | PCNFU ---
Nutrition Follow-Up Complete: Swallowing Diffuculties as related to mentation/risk of aspiration as evidenced by NPO. Goal:Meet estimated nutritional needs - Goal being met with TPN Pt current nutrition is TPN Clinmix E 02/04 with lipids @ 70 ml/h: 1848 kcal, 116 g protein, 1930 ml total volume. Nutrition recommendation: Switch to tube feeding, start with Vital 1.2 @ trickle of 20 ml/h to promote GI tolerance. Tube feeding goal: Vital 1.2 @ 70 ml/h: 1848 kcal, 115 g protein, 1249 ml free water Last recorded weight is 118.2 kg. Bowel Motility: Last BM +1 08/26/23 Labs Reviewed: Hct 9.4, Hct 30.1, Na 131, BUN 42, Cre 1.4, Glu 134, Mag 2.7 Meds Noted: Protonix, Zosyn, protonix Skin: Perc drain Additional Notes: Pt is having bowel movements and drain output is improved. Recommend starting tube feeding at trickle to improve gut function. Vital 1.2 for GI tolerance. Will montior weight, labs, skin, meds, TPN every Saturday and Saturday.
--- NOTE | 2023-08-26 11:12 | PM.PNGS ---
Progress Note: A&P Assessment and Plan (1) Fever: Qualifiers: Fever type: unspecified Qualified Code(s): R50.9 - Fever, unspecified Code(s): R50.9 - Fever, unspecified Status: Acute Assessment and Plan: Still with fevers through the weekend. IV antibiotics switched to Zosyn. Micafungin stopped yesterday. WBC still between 12-13 through the weekend. Sputum cultures sent and were negative. Repeat blood cx on 08/21 NGTD. Right groin hematoma still appears stable with no clinical evidence of infection. Discussed the case with Dr. Armijo. He would recommend getting a contrast study to evaluate the enterocutaneous fistula. I discussed this with the Radiologist and have ordered a CT of the abdomen and pelvis with and without IV contrast and will give water-soluble contrast through the OG [address] (2) Abdominal abscess: Status: Acute Assessment and Plan: Remaining percutaneous drains 4 and 6 with no output over the last two days. Will be able to re-evaluate the abscesses when getting the CT of the abdomen/pelvis today, as mentioned above. 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 Will give water soluble contrast and get a CT scan of the abdomen and pelvis to re-evaluate. Continue bowel rest and TPN. (4) Acute respiratory failure: Qualifiers: Respiratory failure complication: hypoxia and hypercapnia Qualified Code(s): J96.01 - Acute respiratory failure with hypoxia; J96.02 - Acute respiratory failure with hypercapnia Code(s): J96.00 - Acute respiratory failure, unspecified whether with hypoxia or hypercapnia Status: Acute Assessment and Plan: Vent management per Hospice/Home Health Aide (5) Protein-calorie malnutrition, severe: Code(s): E43 - Unspecified severe protein-calorie malnutrition Status: Acute Assessment and Plan: Continue TPN (6) MOISÉS (acute kidney injury): Code(s): N17.9 - Acute kidney failure, unspecified Status: Acute Assessment and Plan: Creatinine up to 1.4 today (7) Atrial fibrillation with rapid ventricular response: Code(s): I48.91 - Unspecified atrial fibrillation Status: Acute Assessment and Plan: Rate-controlled currently. Still anticoagulated on heparin infusion. Plan I have discussed the patient's case and plan of care with Dr. Armijo. Subjective Subjective Date/Time Seen: 08/26/23 11:12 Patient reports: fever (persistent fevers, low grade yesterday but Tmax 101.3F last night) Interval history: 08/02 - Open right inguinal hernia repair with mesh 08/14 - percutaneous drainage of intraabdominal abscesses Chart reviewed since seen last week. Patient remains in the ICU intubated and not currently on any sedation. He wakes easily and follows commands. He nods appropriately when asked simple questions and has been communicating with family/staff with the writing board. He denies any abdominal pain at this time. He has drains #3,4,[address] and the cholecystostomy tube that is still draining adequately. Drains 4 and 6 have had no output since for the past 2 days and drain 3 has only had 10 cc out over the past 2 days. Micafungin stopped yesterday. Other antibiotics stopped and he was switched to IV Zosyn. He is still moving his bowels. On TPN with OG to suction with minimal output. He is making good urine. WBC count has been between 12-13 through the weekend and is 12 this morning. Review of Systems Review of Systems: ROS unobtainable: Yes unobtainable due to endotracheal tube Exam Narrative: Patient intubated and awake off sedation Cardio: Rate: regular rate Rhythm: abnormal rhythm irregularly irregular GI: Inspection: non-distended GI Palp: Yes Soft to palpation, No Tenderness to palpation present (GI) and No Guarding due to palpation present (GI) Ausculta
--- NOTE | 2023-08-26 12:10 | PC.NURSE ---
Spoke with Dr. Whitfield regarding elevation in creatinine. Pt is to receive CT with contrast per surgery recommendations. New order from Dr. Whitfiedl for NS @ 100ml/hr x 1L to help with kidney function.
[2023-08-26] MEDS: SODIUM CHLORIDE 0.9% IV 1,000 ML 100 ML IV CONT (12:19)
[2023-08-26 12:35] LABS: Glucose Point of Care 166 mg/dl (65-105)
[2023-08-26 14:40] LABS: Device VENTILATOR; Modified Allen's Test Pass; Site Drawn RIGHT RADIAL
[2023-08-26 14:41] LABS: Arterial Blood Gas PEEP 8 cmH2O; Arterial Blood Gas Tidal Volume 420 ml; Arterial Blood Gas Vent Mode CMV; Arterial Blood Gas Ventilator rate 15 /MIN
[2023-08-26] MEDS: AMINO ACIDS 5%/D15W/E-LYTES/CA 2,000 ML with MULTIVITAMINS-12 INJ VIAL 1 2.5 ML, MULTIV... 70 ML IV CONT (15:13)
[2023-08-26] MEDS: FAT EMULSIONS IV 20% 250 ML 20.83 ML IVPB (15:14)
[2023-08-26 18:02] LABS: Glucose Point of Care 136 mg/dl (65-105)
[2023-08-26 23:05] LABS: Partial Thromboplastin Time 107.8 SECONDS (22.3-36.8)
[2023-08-27] VITALS (26 sets, daily range): BP systolic 97–140; BP diastolic 63–78; PULSE 82–97; RESP 11–25; TEMP 37.3–37.8; O2SAT 99–100
[2023-08-27 00:09] LABS: Glucose Point of Care 143 mg/dl (65-105)
[2023-08-27] MEDS: ALBUTEROL SULFATE NEB 2.5 MG/3 ML INH INHALATION ×4 (03:07→20:31)
[2023-08-27] MEDS: IPRATROPIUM BR 0.02% INH SOLN 0.5 MG/2.5 ML VIAL INHALATION ×4 (03:07→20:31)
[2023-08-27 04:17] LABS: Alveolar/Arterial O2 Gradient 51.7 mmHg; Base Excess ABG 3.8 mEq/l (+/-2.0); Carboxyhemoglobin 0.2 % THb (0-2.0); Device VENTILATOR; Fractional Inspired Oxygen 30 %; HCO3 ABG 27.5 mEq/l (22.0-26.0); Methemoglobin ABG 0.1 %THb (0-1.5); Modified Allen's Test Pass; Oxygen Content ABG 14.7 %vol (16.0-22.0); Oxygen Saturation ABG 98.5 % (95.0-100.0); Oxyhemoglobin 97.2 % THb (90.0-100.0); PCO2 ABG 38.1 mmHg (35.0-45.0); PO2 ABG 117.4 mmHg (80.0-100.0); PO2 FiO2 Ratio Arterial Blood 3.91 %; Reduced Hemoglobin 2.5 %THb (0-5.0); Site Drawn RIGHT RADIAL; Total Hemoglobin 10.6 g/dL (12.0-18.0); pH ABG 7.476 (7.350-7.450)
[2023-08-27 04:18] LABS: Arterial Blood Gas PEEP 5 cmH2O; Arterial Blood Gas Tidal Volume 420 ml; Arterial Blood Gas Vent Mode CMV; Arterial Blood Gas Ventilator rate 15 /MIN
[2023-08-27] MEDS: CENTRAL LINE FLUSH 10 ML IV PUSH ×3 (05:32→20:38)
[2023-08-27] MEDS: LEVOTHYROXINE SODIUM INJ 100 MCG/5 ML VIAL 50 MCG IV PUSH (05:32)
[2023-08-27 05:44] LABS: Basophils Absolute Auto 0.1 K/mm3 (0.0-0.1); Basophils Percent Auto 0.6 % (0.2-1.2); Eosinophils Absolute Auto 0.4 K/mm3 (0-0.3); Eosinophils Percent Auto 3.7 % (0-4.4); Hematocrit 28.6 % (42.0-52.0); Hemoglobin 9.1 g/dL (14.0-18.0); Immature Granulocyte Percent A 6.6 % (0-0.5); Lymphocytes Percent Auto 9.4 % (18.3-44.2); Mean Corpuscular HGB Conc 31.8 g/dl (32-36); Mean Corpuscular Hemoglobin 30.7 pg (26-34); Mean Corpuscular Volume 96.6 fl (80-100); Mean Platelet Volume 10.5 fl (7.4-10.4); Monocytes Absolute Auto 0.8 K/mm3 (0.1-0.6); Monocytes Percent Auto 7.1 % (2.6-8.5); Neutrophils Absolute Auto 7.7 K/mm3 (1.3-6.7); Neutrophils Percent Auto 72.6 % (45.5-73.1); Platelet Count Result 353 k/mm3 (150-375); Red Blood Count 2.96 M/mm3 (4.6-6.20); Red Cell Distribution Width 14.6 % (11.5-14.5); White Blood Count 10.6 K/mm3 (4.5-10.0)
[2023-08-27 05:56] LABS: Partial Thromboplastin Time 96.5 SECONDS (22.3-36.8)
[2023-08-27 06:00] LABS: Alanine Aminotransferase 42 U/L (6-50); Albumin Level 2.7 g/dL (3.5-5.1); Alkaline Phosphatase 275 U/L (38-126); Anion Gap 6 mmol/L (8-16); Aspartate Amino Transferase 62 U/L (17-59); Bilirubin,Total 1.7 mg/dL (0.2-1.3); Blood Urea Nitrogen 43 mg/dL (9-20); Carbon Dioxide 29 mmol/L (22-30); Chloride 96 mmol/L (98-107); Estimated CRCL calculation 51 ml/min; Estimated Glomerular Filt Rate 53; Glucose 147 mg/dL (65-110); Magnesium 2.6 mg/dL (1.6-2.3); Phosphorus 4.1 mg/dL (2.5-4.5); Potassium 4.2 mmol/L (3.4-5.0); Sodium 131 mmol/L (137-145)
[2023-08-27] MEDS: HEPARIN SOD/D5W 100 UNITS/ML 25,000 UNITS/250 ML BAG 18 UNITS IV CONT ×2 (06:02→18:43)
[2023-08-27] MEDS: ASPIRIN 81 MG CHEWABLE TABLET 162 MG PO (09:38)
[2023-08-27] MEDS: SODIUM CHLORIDE 500 MG TABLET PO ×2 (09:38→17:53)
[2023-08-27] MEDS: MINERAL OIL/WHITE PETROLATUM OINTMENT 1 APPLIC EACH EYE ×2 (09:38→20:37)
[2023-08-27] MEDS: PANTOPRAZOLE SODIUM IV 40 MG VIAL IV PUSH (09:38)
--- NOTE | 2023-08-27 11:10 | PCNFU ---
Nutrition Follow-Up Complete: Swallowing Difficulties as related to mentation/risk of aspiration as evidenced by NPO. goal:Meet estimated nutritional needs patient is progressing towards goal. We will continue current goal. Pt current nutrition is TPN at 70 ml/hr. Last recorded weight is 117.2 kg, up from 108 kg on admit. Bowel Motility:+Bm reported 08/26 Labs Reviewed:Mg 2.6,GFR 53, Na 131, Alb 2.7 Meds Noted:Protonix, Heparin, Zosyn, Synthroid, Clinimix E at 70 ml/hr with 250 ml of 20% Lipid Emulsion. Skin: WNL Additional Notes:Patient remains mechanical vent-breathing trial again today. No Sedation. TPN continues at 70 ml/hr. Recommend Vital AF 1.2 at 20 ml/hr when starting tube feedings. Flush 30 ml q 4 hours. Will monitor weight, labs, skin, meds, TPN every Saturday and Saturday.
[2023-08-27 11:54] LABS: Partial Thromboplastin Time 115.7 SECONDS (22.3-36.8)
[2023-08-27] MEDS: HEPARIN SOD/D5W 100 UNITS/ML 25,000 UNITS/250 ML BAG 16 UNITS IV CONT (11:57)
[2023-08-27 12:48] LABS: Glucose Point of Care 159 mg/dl (65-105)
--- NOTE | 2023-08-27 14:11 | WPDINTPN ---
Progress Note: A&P Assessment and Plan (1) Acute respiratory failure: Qualifiers: Respiratory failure complication: hypoxia and hypercapnia Qualified Code(s): J96.01 - Acute respiratory failure with hypoxia; J96.02 - Acute respiratory failure with hypercapnia Code(s): J96.00 - Acute respiratory failure, unspecified whether with hypoxia or hypercapnia Status: Acute Assessment and Plan: Acute hypoxic and hypercarbic respiratory failure. Chest x-ray shows diffuse lung disease most likely which improved with diuretics. ABG chest x-ray and ventilator settings reviewed this morning 08/17 Patient placed on PSV but failed quickly due to high RSBI. PSV increased to 15/8 to get adequate RSBI. Patient tolerated that for many hours It appears the patient is severely deconditioned and weak 08/18 will re try PSV again today. Continue Bumex to manage the fluid balance 08/19 patient placed on PSV again today. Patient either had low rate on high pressure support or low tidal volume lower pressure support. I was able to get adequate RSBI on 06/30. This is better than what he has done in the past but still good enough for extubation. I will continue pressure support ventilation as tolerated through the day and try to wean down pressure support. 08/20 patient placed on PSV again and can only get adequate RSBI on 06/30. If extubated patient will need and NIPPV which because of his deconditioning and fluctuating mental status may not be good option. Will continue PSV as tolerated today Antibiotics as below Low tidal volume management -08/21, patient placed on pressure support ventilation 08/27, respiratory rate was low with decreased tidal volumes, placed on ASV mode, patient's respiratory rate remained low patient was placed back on CMV mode, will try again today -08/22: Patient tolerated PSV 10/5 for approximately 6-7 hours after which the tidal volumes were low, patient seemed to be tired and weak and was placed on CMV mode 08/23: Tolerated PSV 8/5 for approximately 3 hours, and had to be placed on CMV mode as dropped his tidal volumes and was tachypneic 08/24: Patient tolerated PSV 10/5 for few hours and had increased work of breathing and decrease tidal volumes so was placed back on CMV mode -08/25: Tolerated pressure support ventilation 10/5 all day long and was switched to ASV overnight -08/26: Tolerated PSV 10/5 for a few hours and had to be placed back on CMV mode of ventilation -08/27: Discuss with family, surgery, does not seem that the patient is going to come off the ventilator since he is not tolerating appropriate spontaneous breathing trial. Discussed with them regarding tracheostomy to which the family and the surgeon are agreeable. ENT has been consulted 08/26: Will hold Bumex that has been ordered by surgery on a daily basis as his creatinine has increased (2) Sepsis: Qualifiers: Sepsis type: sepsis due to unspecified organism Sepsis acute organ dysfunction status: with acute organ dysfunction Severe sepsis acute organ dysfunction type: acute renal failure Acute renal failure type: unspecified Severe sepsis shock status: without septic shock Qualified Code(s): A41.9 - Sepsis, unspecified organism; R65.20 - Severe sepsis without septic shock; N17.9 - Acute kidney failure, unspecified Code(s): A41.9 - Sepsis, unspecified organism Status: Acute Assessment and Plan: Secondary to peritonitis. Patient also appears to have consolidation of the lower lobes on the CT done which could be aspiration versus atelectasis Repeat CT scan of abdomen and pelvis done on 08/06 showed gallbladder distention and also fluid collection likely exudative 08/06 patient underwent cholecystostomy and drainage of peritoneal abscess-cultures have been sent IR placed drain in abscess and right and gallbladder which are in place Gallbladder drain culture grew Enterococcus Abscess drain culture grew prevotella Patient was st
[2023-08-27] MEDS: LORazepam INJ (*CRX) 2 MG/ML VIAL 0.25 MG IV PUSH (15:58)
[2023-08-27] MEDS: FAT EMULSIONS IV 20% 250 ML 20.83 ML IVPB (15:59)
[2023-08-27] MEDS: AMINO ACIDS 5%/D15W/E-LYTES/CA 2,000 ML with MULTIVITAMINS-12 INJ VIAL 1 2.5 ML, MULTIV... 70 ML IV CONT (16:00)
--- NOTE | 2023-08-27 16:18 | WPDCN ---
Assessment and Plan Assessment and plan (1) Acute respiratory failure: Qualifiers: Respiratory failure complication: hypoxia and hypercapnia Qualified Code(s): J96.01 - Acute respiratory failure with hypoxia; J96.02 - Acute respiratory failure with hypercapnia Code(s): J96.00 - Acute respiratory failure, unspecified whether with hypoxia or hypercapnia Status: Acute Assessment and Plan: plan OR for tracheostomy. Please obtain consent. Hold VT prophylaxis morning of. Scheduled for September 02. HPI Data of Consult Date/Time: 08/27/23 16:18 Requesting Physician: Jaxon Armijo MD Primary Care Provider: Demond Stark MD Consult Narrative Narrative: Omar Ryan is a 83 year old male with respiratory insufficiency. Review of Systems Review of Systems: All systems reviewed & are unremarkable except as noted in HPI and below PMFSH Past Medical History Medical History Basal cell carcinoma BMI 31.0-31.9,adult BMI 32.0-32.9,adult BMI greater than 30 Brain bleed CAD (coronary artery disease) Constipation Decreased ROM of left shoulder Elevated glucose GERD (gastroesophageal reflux disease) Hepatitis B Hyperlipidemia Hypertension Hypothyroid Myocardial infarct Paroxysmal atrial fibrillation Prediabetes Prostate CA Screening for prostate cancer Seizures Surgical History Surgical History H/O arthroscopy lt knee H/O prostatectomy 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 Yen Hx of local excision of skin lesion Family History Family History Father Malignant neoplasm of prostate Sibling Ovarian cancer Mother , epilepsy No problems noted. Sibling No problems noted. Social History Social History Smoking packs per day: 2 Smoking cigarettes per day: 40.0 Years smoked: 12 Smoking pack-years: 24.00 Smoking status: Former smoker Tobacco type: cigarettes Second hand tobacco smoke exposure: No Smoking end date: 09/23/70 Alcohol intake: current Alcohol use details: RARELY - 1/2 CASE BEER/YR Substance use: never Substance use type: does not use Lack of Transportation: No Lack of Food: Never True Current Housing: I Have Housing Concerned About Future Housing: No Difficulty Paying Gas/Electric Bills: No Difficulty Paying for Meds: No Currently Unemployed: No Education: High School Diploma/GED Difficulty w/ Childcare or Family Care: No Living arrangements: with family Occupation/Education: retired 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 [employer] Gender identity (if verbalized by the patient): Male Spiritual care concerns: No Meds Home Medications and Allergies Home Medications Medication Instructions Recorded Confirmed Type amlodipine 10 mg tablet 10 mg PO DAILY 05/15/22 08/02/23 History aspirin 81 mg chewable tablet 2 tablet PO DAILY 05/15/22 08/02/23 History loratadine 10 mg tablet (Claritin) 10 mg PO DAILY 05/15/22 08/02/23 History losartan 25 mg tablet 25 mg PO DAILY 05/15/22 08/02/23 History levothyroxine 100 mcg tablet 100 mcg PO DAILY #90 tabs 06/10/23 08/02/23 Rx coenzyme Q10 30 mg capsule (Co 30 mg PO DAILY 06/11/23 08/02/23 History Q-10) omega 5-osq-zhn-fish oil 60 mg-90 1 cap PO DAILY 06/11/23 08/02/23 History mg-500 mg capsule (Fish Oil) rivaroxaban 20 mg tablet (Xarelto) 20 mg PO QPM 07/30/23 08/02/23 History oxycodone-acetaminophen 5 mg-325 0.5 - 1 tablet PO Q6H PRN pain #10 08/02/23 Rx mg tablet tabs Allergies Allergy/AdvReac Type Severity Reaction Status Date / Time benazepril Allergy Unknown Unknown - Verified 08/02/23 10:15 PT UN
--- NOTE | 2023-08-27 16:20 | PM.PNGS ---
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 25 cc or less, last 3 days. No increased output after oral contrast study yesterday. All drains are out now except for the entero cutaneous fistula and the cholecystostomy drain. Patient is off antibiotics entirely and temperature curve has been down trending last 3 days. No spike after contrast given yesterday. Hope to try tube feedings again either later this week or next week. Continues to improve. CT yesterday negative for any intra-abdominal fistula and a very small leak from the bowel in the pelvis with no evidence of distal obstruction. Drain is right at the area of contrast extravasation and only minimal 2-3 cc of extraluminal contrast noted. (2) Cholecystitis: Code(s): K81.9 - Cholecystitis, unspecified Status: Acute Assessment and Plan: Resolved after cholecystostomy tube has been placed. If patient remains stable, will get cholecystogram tomorrow. If cystic duct is patent, will try capping cholecystostomy tube. (3) Acute respiratory failure: Qualifiers: Respiratory failure complication: hypoxia and hypercapnia Qualified Code(s): J96.01 - Acute respiratory failure with hypoxia; J96.02 - Acute respiratory failure with hypercapnia Code(s): J96.00 - Acute respiratory failure, unspecified whether with hypoxia or hypercapnia Status: Acute Assessment and Plan: Patient still unable to be extubated. I discussed this with the linen keeper, Dr. Whitfield. His tidal volumes are very small like 120-150 cc. He feels that if the patient is extubated, he will end up having to be reintubated. We discussed tracheostomy which, if the patient can not be extubated, seems like best thing to do to try to avoid tracheal stenosis. I discussed this with the patient's and his daughter. Unfortunately, this can not be done until Saturday due to ENT schedule conflicts. Hopefully patient will extubate prior to than and avoid tracheostomy. (4) Protein-calorie malnutrition, severe: Code(s): E43 - Unspecified severe protein-calorie malnutrition Status: Acute Assessment and Plan: Continue TPN as per dietitian nutritional recommendations. (5) Fever: Qualifiers: Fever type: unspecified Qualified Code(s): R50.9 - Fever, unspecified Code(s): R50.9 - Fever, unspecified Status: Acute Assessment and Plan: Off antibiotics and temperature curve is down trending last 3 days. (6) Atrial fibrillation with rapid ventricular response: Code(s): I48.91 - Unspecified atrial fibrillation Status: Acute Assessment and Plan: Remains fully anticoagulated on heparin. Subjective Subjective Date/Time Seen: 08/27/23 16:20 Patient reports: other (Remains intubated on mechanical ventilator.) Interval history: Awake and alert when I saw him. Was able to communicate by writing on a white board. Maximum temperature 38.1? no new problems. Review of Systems Review of Systems: ROS unobtainable: Yes unobtainable due to endotracheal tube Exam Const: General: cooperative, comfortable, no acute distress and awake Orientation/consciousness: No confusion GI: Inspection: no abdominal wall ecchymosis, non-distended and no visible herniation GI Palp: Yes Firmness to palpation present (GI), No Tenderness to palpation present (GI), No Guarding due to palpation present (GI), No Hernia present, No Palpable mass present and Yes Other GI palpation findings present (Drains 2 and 6 removed at bedside today.) : Male General Exam: No ecchymosis, No erythema, No hernia and Yes other (Right groin incision healing well, hematoma smaller, no sign of infection.) Penis: Yes other (Retracted in edematous scrotum) Scrotum: edematous Urinary Catheter: Urinary Catheter: patent and draining Skin:
[2023-08-27 17:58] LABS: Glucose Point of Care 163 mg/dl (65-105)
[2023-08-27 18:32] LABS: Partial Thromboplastin Time 68.6 SECONDS (22.3-36.8)
[2023-08-27] MEDS: HEPARIN SODIUM 5,000 UNITS/ML VIAL 3500 UNITS IV PUSH (18:54)
[2023-08-28] VITALS (25 sets, daily range): BP systolic 106–142; BP diastolic 64–98; PULSE 72–104; RESP 17–28; TEMP 37.3–37.9; O2SAT 98–100
[2023-08-28 00:28] LABS: Glucose Point of Care 139 mg/dl (65-105)
[2023-08-28 01:30] LABS: Partial Thromboplastin Time 99.6 SECONDS (22.3-36.8)
[2023-08-28] MEDS: IPRATROPIUM BR 0.02% INH SOLN 0.5 MG/2.5 ML VIAL INHALATION ×2 (01:42→08:06)
[2023-08-28] MEDS: ALBUTEROL SULFATE NEB 2.5 MG/3 ML INH INHALATION ×2 (01:42→08:06)
[2023-08-28 04:44] LABS: Alveolar/Arterial O2 Gradient < 0.0 mmHg; Base Excess ABG 4.3 mEq/l (+/-2.0); Carboxyhemoglobin 0.3 % THb (0-2.0); Fractional Inspired Oxygen 30 %; HCO3 ABG 28.9 mEq/l (22.0-26.0); Methemoglobin ABG 0.2 %THb (0-1.5); Oxygen Content ABG 14.8 %vol (16.0-22.0); Oxygen Saturation ABG 99.2 % (95.0-100.0); Oxyhemoglobin 97.9 % THb (90.0-100.0); PCO2 ABG 43.5 mmHg (35.0-45.0); PO2 ABG 167.8 mmHg (80.0-100.0); PO2 FiO2 Ratio Arterial Blood 5.59 %; Reduced Hemoglobin 1.6 %THb (0-5.0); Total Hemoglobin 10.5 g/dL (12.0-18.0); pH ABG 7.441 (7.350-7.450)
[2023-08-28 04:45] LABS: Site Drawn RIGHT RADIAL
[2023-08-28 04:46] LABS: Arterial Blood Gas Vent Mode CMV; Arterial Blood Gas Ventilator rate 15 /MIN; Device VENTILATOR; Modified Allen's Test Pass
[2023-08-28 04:47] LABS: Arterial Blood Gas PEEP 8 cmH2O; Arterial Blood Gas Tidal Volume 420 ml
[2023-08-28] MEDS: LEVOTHYROXINE SODIUM INJ 100 MCG/5 ML VIAL 50 MCG IV PUSH (06:34)
[2023-08-28] MEDS: CENTRAL LINE FLUSH 10 ML IV PUSH ×3 (06:35→21:06)
[2023-08-28 06:53] LABS: Basophils Absolute Auto 0.1 K/mm3 (0.0-0.1); Basophils Percent Auto 0.6 % (0.2-1.2); Eosinophils Absolute Auto 0.5 K/mm3 (0-0.3); Eosinophils Percent Auto 5.1 % (0-4.4); Hematocrit 28.8 % (42.0-52.0); Hemoglobin 9.1 g/dL (14.0-18.0); Immature Granulocyte Absolute 0.75 K/mm3 (0.00-0.031); Immature Granulocyte Percent A 7.6 % (0-0.5); Lymphocytes Absolute Auto 1.01 K/mm3 (0.9-3.2); Lymphocytes Percent Auto 10.3 % (18.3-44.2); Mean Corpuscular HGB Conc 31.6 g/dl (32-36); Mean Corpuscular Hemoglobin 30.6 pg (26-34); Mean Platelet Volume 10.7 fl (7.4-10.4); Monocytes Absolute Auto 0.6 K/mm3 (0.1-0.6); Monocytes Percent Auto 6.5 % (2.6-8.5); Neutrophils Absolute Auto 6.9 K/mm3 (1.3-6.7); Neutrophils Percent Auto 69.9 % (45.5-73.1); Platelet Count Result 367 k/mm3 (150-375); Red Blood Count 2.97 M/mm3 (4.6-6.20); Red Cell Distribution Width 14.6 % (11.5-14.5); White Blood Count 9.8 K/mm3 (4.5-10.0)
[2023-08-28 07:09] LABS: Partial Thromboplastin Time 103.5 SECONDS (22.3-36.8)
[2023-08-28 07:10] LABS: Alanine Aminotransferase 57 U/L (6-50); Albumin Level 2.7 g/dL (3.5-5.1); Alkaline Phosphatase 310 U/L (38-126); Anion Gap 7 mmol/L (8-16); Aspartate Amino Transferase 82 U/L (17-59); Bilirubin,Total 1.4 mg/dL (0.2-1.3); Blood Urea Nitrogen 35 mg/dL (9-20); Calcium 8.2 mg/dL (8.4-10.2); Carbon Dioxide 28 mmol/L (22-30); Chloride 97 mmol/L (98-107); Estimated CRCL calculation 59 ml/min; Estimated Glomerular Filt Rate > 60; Glucose 148 mg/dL (65-110); Magnesium 2.5 mg/dL (1.6-2.3); Phosphorus 3.9 mg/dL (2.5-4.5); Potassium 4.3 mmol/L (3.4-5.0); Sodium 132 mmol/L (137-145)
[2023-08-28] MEDS: SODIUM CHLORIDE 500 MG TABLET PO (08:00)
[2023-08-28] MEDS: PANTOPRAZOLE SODIUM IV 40 MG VIAL IV PUSH (08:00)
[2023-08-28] MEDS: ASPIRIN 81 MG CHEWABLE TABLET 162 MG PO (08:00)
--- NOTE | 2023-08-28 09:16 | PM.IMPN ---
Progress Note: A&P Assessment and Plan (1) Respiratory failure: Code(s): J96.90 - Respiratory failure, unspecified, unspecified whether with hypoxia or hypercapnia Status: Acute Assessment and Plan: Patient had acute respiratory failure earlier felt to be multifactorial due to fluid overload, possible aspiration pneumonia vs atelectasis. CXR 08/09 showed mild pulm edema, small left pleural effusion, right opacities worsening concerning for pneumonia--CT less concerning for PNA. MRSA swab negative 08/09: Linezolid added to cover Enterococcus species growing from cholecystostomy tube Lasix then Bumex was given with improved resp status. Weaned to room air. He remained on IV Bumex. ------ On the morning of 08/15, patient developed acute respiratory distress. ABG 7.37/62/58 so BiPAP ordered Repeat ABG 7.15/101/91 so patient intubated. CXR reviewed showing diffuse lung disease c/w edema vs PNA vs atelectasis Cumulative fluid balance at that time was +2.7L with excellent UOP past few days prior Consider pulmonary edema vs ARDS vs aspiration but NPO so felt less likely. Good UOP with Bumex but UOP dropping off CXR today showing clear lungs Adjust nebs to prn He has failed breathing trials with plans for possible trach Appreciate window dresser input. Discussed with window dresser (2) Sepsis: Qualifiers: Sepsis type: sepsis due to unspecified organism Sepsis acute organ dysfunction status: with acute organ dysfunction Severe sepsis acute organ dysfunction type: acute renal failure Acute renal failure type: unspecified Severe sepsis shock status: without septic shock Qualified Code(s): A41.9 - Sepsis, unspecified organism; R65.20 - Severe sepsis without septic shock; N17.9 - Acute kidney failure, unspecified Code(s): A41.9 - Sepsis, unspecified organism Status: Acute Assessment and Plan: Currently being treated for cholecystitis + pelvic abscesses UCx 08/05, 08/06, 08/16 negative GB Cx 08/06 growing enterococcus but unable to perform sensitivities Abscess Cx 08/06 Prevotella that is beta-lactamase positive BCx 08/06 negative. MRSA nasal swab 08/09 negative BCx 08/10 negative. Fungal cx 08/[address] A/P 08/13 showing multiple intraperitoneal abscesses similar to 08/09 with worsening mass involving the right inguinal canal and right scrotum. 08/14: Multiple Abd drains placed with culture growing H. parainfluenza and prevotella BCx 08/[address] A/P 08/18 slight increase in fluid collection adjacent to LLQ pigtail drain measuring 3 cm, other fluid collections are either stable or slightly smaller in size, stable right groin infected hematoma, cystitis versus bladder wall thickening, Weathers catheter in place but balloon not visualized and mild fecal impaction. Tx with meropenem, linezolid. Micafungin added 08/11 he completed a course of linezolid stopped 08/19. meropenem changed to Cefepime and Flagyl. Flagyl and Cefepime stopped 08/23 Micafungin stopped 08/25 after 14 days course Zosyn started 08/23 through 08/26 Fever curve better and WBC normal now. All abx stopped on 08/26 Appears to be improving now that we have better source control Appreciate GenSurg input. Discussed with GenSurg (3) Cholecystitis: Code(s): K81.9 - Cholecystitis, unspecified Status: Acute Assessment and Plan: Cholecystostomy fluid drained and tube placed 08/06 Culture growing Enterococcus species but unable to perform sensitivities. Discussed with infectious disease pharmacist, initiated on linezolid 08/09 due to resistance patterns Completed 10 day course of Linezolid 08/19 Discussed with surgery - possible clamping of tube to assess CBD patency. Cholecystostomy tube management per GenSurg (4) Shock: Code(s): R57.9 - Shock, unspecified Status: Acute Assessment and Plan: Patient was hemodynamically stable prior to intubation but now blood pressure dropped.? This could be combination of
--- NOTE | 2023-08-28 09:42 | WPDINTPN ---
Progress Note: A&P Assessment and Plan (1) Acute respiratory failure: Qualifiers: Respiratory failure complication: hypoxia and hypercapnia Qualified Code(s): J96.01 - Acute respiratory failure with hypoxia; J96.02 - Acute respiratory failure with hypercapnia Code(s): J96.00 - Acute respiratory failure, unspecified whether with hypoxia or hypercapnia Status: Acute Assessment and Plan: Acute hypoxic and hypercarbic respiratory failure. Chest x-ray shows diffuse lung disease most likely which improved with diuretics. ABG chest x-ray and ventilator settings reviewed this morning 08/17 Patient placed on PSV but failed quickly due to high RSBI. PSV increased to 15/8 to get adequate RSBI. Patient tolerated that for many hours It appears the patient is severely deconditioned and weak 08/18 will re try PSV again today. Continue Bumex to manage the fluid balance 08/19 patient placed on PSV again today. Patient either had low rate on high pressure support or low tidal volume lower pressure support. I was able to get adequate RSBI on 06/30. This is better than what he has done in the past but still good enough for extubation. I will continue pressure support ventilation as tolerated through the day and try to wean down pressure support. 08/20 patient placed on PSV again and can only get adequate RSBI on 06/30. If extubated patient will need and NIPPV which because of his deconditioning and fluctuating mental status may not be good option. Will continue PSV as tolerated today Antibiotics as below Low tidal volume management -08/21, patient placed on pressure support ventilation 08/27, respiratory rate was low with decreased tidal volumes, placed on ASV mode, patient's respiratory rate remained low patient was placed back on CMV mode, will try again today -08/22: Patient tolerated PSV 10/5 for approximately 6-7 hours after which the tidal volumes were low, patient seemed to be tired and weak and was placed on CMV mode 08/23: Tolerated PSV 8/5 for approximately 3 hours, and had to be placed on CMV mode as dropped his tidal volumes and was tachypneic 08/24: Patient tolerated PSV 10/5 for few hours and had increased work of breathing and decrease tidal volumes so was placed back on CMV mode -08/25: Tolerated pressure support ventilation 10/5 all day long and was switched to ASV overnight -08/26: Tolerated PSV 10/5 for a few hours and had to be placed back on CMV mode of ventilation -08/27: Discuss with family, surgery, does not seem that the patient is going to come off the ventilator since he is not tolerating appropriate spontaneous breathing trial. Discussed with them regarding tracheostomy to which the family and the surgeon are agreeable. ENT has been consulted and tracheostomy scheduled for 09/02 Continue Bumex as needed to keep balance even Will try PSV again today (2) Sepsis: Qualifiers: Acute renal failure type: unspecified Sepsis acute organ dysfunction status: with acute organ dysfunction Sepsis type: sepsis due to unspecified organism Severe sepsis acute organ dysfunction type: acute renal failure Severe sepsis shock status: without septic shock Qualified Code(s): A41.9 - Sepsis, unspecified organism; R65.20 - Severe sepsis without septic shock; N17.9 - Acute kidney failure, unspecified Code(s): A41.9 - Sepsis, unspecified organism Status: Acute Assessment and Plan: Secondary to peritonitis. Patient also appears to have consolidation of the lower lobes on the CT done which could be aspiration versus atelectasis Repeat CT scan of abdomen and pelvis done on 08/06 showed gallbladder distention and also fluid collection likely exudative 08/06 patient underwent cholecystostomy and drainage of peritoneal abscess-cultures have been sent IR placed drain in abscess and right and gallbladder which are in place Gallbladder drain culture grew Enterococcus Abscess drain culture grew prevotella Patient was
[2023-08-28] MEDS: HEPARIN SOD/D5W 100 UNITS/ML 25,000 UNITS/250 ML BAG 18 UNITS IV CONT (09:52)
[2023-08-28] MEDS: MINERAL OIL/WHITE PETROLATUM OINTMENT 1 APPLIC EACH EYE ×2 (09:53→21:06)
--- NOTE | 2023-08-28 10:05 | PC.NURSE ---
Dr. Armijo at bedside to inspect wound of rectum. tissue removed. Wound care at bedside, orders received. Will continue to monitor
--- NOTE | 2023-08-28 10:56 | PCNFU ---
Nutrition Follow-Up Complete: Swallowing Difficulties as related to mentation/risk of aspiration as evidenced by NPO. Goal: Meet estimated nutritional needs Patient is progressing towards goal. We will continue current goal. Pt current nutrition is TPN at 70 ml/hr Last recorded weight is 115.8 kg, up from 108 kg on admit. Bowel Motility: +BM reported 08/28 Labs Reviewed:Glu 148,Na 132, Alb 2.7, BUN 35 Meds Noted:Protonix, Synthroid, Heparin,Clinimix E at 70 ml/hr with 250 ml of 20% Lipid Emulsion. Skin:WNL Additional Notes: Patient remains on a mechanical vent. Failed Breathing trial. Discussions in rounds regarding possible trach placement. Will continue TPN at this time, surgery discussing possible trickle feedings by end of week. TPN providing 1693 kcals/84 gms protein, meeting 84% kcal needs and 87% protein needs. Will continue to monitor TG. Last TG 89 WNL on 08/25. Agree with diet orders. Will monitor weight, labs, skin, meds, TPN every Saturday and Saturday.
--- NOTE | 2023-08-28 11:33 | PM.PNGS ---
Progress Note: A&P Assessment and Plan (1) Decubitus ulcer: Code(s): L89.90 - Pressure ulcer of unspecified site, unspecified stage Status: Acute Assessment and Plan: Patient was found to have a necrotic posterior midline perirectal wound today. It is possible that this may have contributed to his fevers. Dr. Armijo performed a bedside debridement of any loose necrotic tissue today. We will start Santyl for continued enzymatic debridement. 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 Continue to monitor perc drain #3 and his output. Hopefully we can try tube feedings again either later this week or next week. (3) Cholecystitis: Code(s): K81.9 - Cholecystitis, unspecified Status: Acute Assessment and Plan: Resolved after cholecystostomy tube has been placed. Will plan cholecystogram this week. If cystic duct is patent, will try capping cholecystostomy tube. (4) Acute respiratory failure: Qualifiers: Respiratory failure complication: hypoxia and hypercapnia Qualified Code(s): J96.01 - Acute respiratory failure with hypoxia; J96.02 - Acute respiratory failure with hypercapnia Code(s): J96.00 - Acute respiratory failure, unspecified whether with hypoxia or hypercapnia Status: Acute Assessment and Plan: ENT consulted for tracheostomy that is scheduled for Saturday. Continue vent management per Support Services Coordinator with the hope that he could avoid the tracheostomy if he is able to be extubated before Saturday. (5) Protein-calorie malnutrition, severe: Code(s): E43 - Unspecified severe protein-calorie malnutrition Status: Acute Assessment and Plan: Continue TPN as per dietitian nutritional recommendations. (6) Fever: Qualifiers: Fever type: unspecified Qualified Code(s): R50.9 - Fever, unspecified Code(s): R50.9 - Fever, unspecified Status: Acute Assessment and Plan: Off antibiotics and temperature curve continues to trend down. WBC normalized. (7) Atrial fibrillation with rapid ventricular response: Code(s): I48.91 - Unspecified atrial fibrillation Status: Acute Assessment and Plan: Remains fully anticoagulated on heparin. Plan I have discussed the patient's case and plan of care with Dr. Armijo. Subjective Subjective Date/Time Seen: 08/28/23 11:33 Patient reports: bowel movement and fever (overall curve trending down, no temp over 99.7 in past 24 hrs) Interval history: Patient seen this morning in the ICU with Dr. Armijo and the wound care nurse, Melanie, and nursing staff. His overall temperature curve of his fevers is trending down. He is still moving his bowels. Not able to be extubated yesterday as his tidal volumes were low during his breathing trial. ENT has been consulted for tracheostomy placement. Wound care was consulted today for a rectal wound and they subsequently spoke with us regarding their assessment. I then notified Dr. Armijo who also came to the bedside to evaluate the patient. Review of Systems Review of Systems: ROS unobtainable: Yes unobtainable due to endotracheal tube Exam Narrative: Patient intubated and awake off sedation Const: General: comfortable and awake GI: Inspection: non-distended GI Palp: Yes Soft to palpation, No Tenderness to palpation present (GI) and No Guarding due to palpation present (GI) Auscultation: Hypoactive bowel sounds present Other: RUQ cholecystostomy tube with bilious output LLQ drain #3 with scant brown drainage that still appears enteric Drains 2 and 6 were removed yesterday and now have a dry gauze dressing intact There is a 6 cm x 6 cm necrotic perirectal wound in the posterior midline. Dr. Armijo debrided all loose necrotic tissue and did not feel any evidence
[2023-08-28] MEDS: BUMETANIDE INJ 1 MG/4 ML VIAL IV PUSH (11:47)
[2023-08-28] MEDS: COLLAGENASE OINT 30 GM TUBE 1 APPLIC TOPICAL (11:47)
[2023-08-28 11:57] LABS: Glucose Point of Care 155 mg/dl (65-105)
[2023-08-28] MEDS: AMINO ACIDS 5%/D15W/E-LYTES/CA 2,000 ML with MULTIVITAMINS-12 INJ VIAL 1 2.5 ML, MULTIV... 70 ML IV CONT (15:07)
[2023-08-28] MEDS: FAT EMULSIONS IV 20% 250 ML 20.83 ML IVPB (15:08)
[2023-08-28] MEDS: SODIUM CHLORIDE 1 GM TABLET PO (16:31)
[2023-08-28 18:25] LABS: Glucose Point of Care 148 mg/dl (65-105)
[2023-08-28] MEDS: ENOXAPARIN 120 MG/0.8 ML SYRINGE 115 MG SUB-Q (21:06)
[2023-08-29] VITALS (20 sets, daily range): BP systolic 94–125; BP diastolic 66–76; PULSE 72–96; RESP 12–20; TEMP 37.1–37.7; O2SAT 99–100
[2023-08-29 00:36] LABS: Glucose Point of Care 136 mg/dl (65-105)
[2023-08-29 05:55] LABS: Alveolar/Arterial O2 Gradient 61.6 mmHg; Base Excess ABG 3.6 mEq/l (+/-2.0); Carboxyhemoglobin 0.1 % THb (0-2.0); Fractional Inspired Oxygen 30 %; HCO3 ABG 27.9 mEq/l (22.0-26.0); Methemoglobin ABG 0.2 %THb (0-1.5); Oxygen Content ABG 14.9 %vol (16.0-22.0); Oxygen Saturation ABG 97.9 % (95.0-100.0); Oxyhemoglobin 96.4 % THb (90.0-100.0); PCO2 ABG 41.5 mmHg (35.0-45.0); PO2 ABG 103.5 mmHg (80.0-100.0); PO2 FiO2 Ratio Arterial Blood 3.45 %; Reduced Hemoglobin 3.3 %THb (0-5.0); Total Hemoglobin 10.9 g/dL (12.0-18.0); pH ABG 7.446 (7.350-7.450)
[2023-08-29 05:56] LABS: Device VENTILATOR; Modified Allen's Test Pass; Site Drawn RIGHT RADIAL
[2023-08-29 05:57] LABS: Arterial Blood Gas PEEP 8 cmH2O; Arterial Blood Gas Tidal Volume 420 ml; Arterial Blood Gas Vent Mode CMV; Arterial Blood Gas Ventilator rate 15 /MIN
[2023-08-29] MEDS: LEVOTHYROXINE SODIUM INJ 100 MCG/5 ML VIAL 50 MCG IV PUSH (06:12)
[2023-08-29] MEDS: CENTRAL LINE FLUSH 10 ML IV PUSH ×3 (06:13→20:30)
[2023-08-29 06:23] LABS: Basophils Absolute Auto 0.1 K/mm3 (0.0-0.1); Basophils Percent Auto 0.7 % (0.2-1.2); Eosinophils Absolute Auto 0.4 K/mm3 (0-0.3); Eosinophils Percent Auto 4.6 % (0-4.4); Hematocrit 28.8 % (42.0-52.0); Hemoglobin 9.1 g/dL (14.0-18.0); Immature Granulocyte Absolute 0.71 K/mm3 (0.00-0.031); Immature Granulocyte Percent A 8.2 % (0-0.5); Lymphocytes Absolute Auto 1.14 K/mm3 (0.9-3.2); Lymphocytes Percent Auto 13.2 % (18.3-44.2); Mean Corpuscular HGB Conc 31.6 g/dl (32-36); Mean Corpuscular Hemoglobin 30.4 pg (26-34); Mean Corpuscular Volume 96.3 fl (80-100); Mean Platelet Volume 10.5 fl (7.4-10.4); Monocytes Absolute Auto 0.6 K/mm3 (0.1-0.6); Monocytes Percent Auto 6.4 % (2.6-8.5); Neutrophils Absolute Auto 5.8 K/mm3 (1.3-6.7); Neutrophils Percent Auto 66.9 % (45.5-73.1); Platelet Count Result 361 k/mm3 (150-375); Red Blood Count 2.99 M/mm3 (4.6-6.20); Red Cell Distribution Width 14.6 % (11.5-14.5); White Blood Count 8.6 K/mm3 (4.5-10.0)
[2023-08-29 06:39] LABS: Alanine Aminotransferase 76 U/L (6-50); Albumin Level 2.8 g/dL (3.5-5.1); Alkaline Phosphatase 334 U/L (38-126); Anion Gap 2 mmol/L (8-16); Aspartate Amino Transferase 90 U/L (17-59); Bilirubin,Total 1.3 mg/dL (0.2-1.3); Blood Urea Nitrogen 33 mg/dL (9-20); Calcium 8.3 mg/dL (8.4-10.2); Carbon Dioxide 31 mmol/L (22-30); Chloride 98 mmol/L (98-107); Estimated CRCL calculation 59 ml/min; Estimated Glomerular Filt Rate > 60; Glucose 133 mg/dL (65-110); Magnesium 2.5 mg/dL (1.6-2.3); Phosphorus 3.9 mg/dL (2.5-4.5); Potassium 4.2 mmol/L (3.4-5.0); Sodium 131 mmol/L (137-145)
[2023-08-29 07:50] LABS: Hypochromasia 1+ (NORMAL); Platelet Estimate Adequate (Adequate); Schistocytes None Seen (NORMAL)
[2023-08-29] MEDS: ENOXAPARIN 120 MG/0.8 ML SYRINGE 115 MG SUB-Q (08:13)
[2023-08-29] MEDS: SODIUM CHLORIDE 1 GM TABLET PO ×2 (08:14→18:36)
[2023-08-29] MEDS: ASPIRIN 81 MG CHEWABLE TABLET 162 MG PO (08:14)
[2023-08-29] MEDS: PANTOPRAZOLE SODIUM IV 40 MG VIAL IV PUSH (08:15)
[2023-08-29] MEDS: MINERAL OIL/WHITE PETROLATUM OINTMENT 1 APPLIC EACH EYE ×2 (09:00→20:30)
--- NOTE | 2023-08-29 09:19 | P.PNINT_ITS ---
Progress Note: A&P Assessment and Plan (1) Acute respiratory failure: Qualifiers: Respiratory failure complication: hypoxia and hypercapnia Qualified Code(s): J96.01 - Acute respiratory failure with hypoxia; J96.02 - Acute respiratory failure with hypercapnia Code(s): J96.00 - Acute respiratory failure, unspecified whether with hypoxia or hypercapnia Status: Acute Assessment and Plan: Acute hypoxic and hypercarbic respiratory failure. Chest x-ray shows diffuse lung disease most likely which improved with diuretics. ABG chest x-ray and ventilator settings reviewed this morning 08/17 Patient placed on PSV but failed quickly due to high RSBI. PSV increased to 15/8 to get adequate RSBI. Patient tolerated that for many hours It appears the patient is severely deconditioned and weak 08/18 will re try PSV again today. Continue Bumex to manage the fluid balance 08/19 patient placed on PSV again today. Patient either had low rate on high pressure support or low tidal volume lower pressure support. I was able to get adequate RSBI on 06/30. This is better than what he has done in the past but still good enough for extubation. I will continue pressure support ventilation as tolerated through the day and try to wean down pressure support. 08/20 patient placed on PSV again and can only get adequate RSBI on 06/30. If extubated patient will need and NIPPV which because of his deconditioning and fluctuating mental status may not be good option. Will continue PSV as tolerated today Antibiotics as below Low tidal volume management -08/21, patient placed on pressure support ventilation 08/27, respiratory rate was low with decreased tidal volumes, placed on ASV mode, patient's respiratory rate remained low patient was placed back on CMV mode, will try again today -08/22: Patient tolerated PSV 10/5 for approximately 6-7 hours after which the tidal volumes were low, patient seemed to be tired and weak and was placed on CMV mode 08/23: Tolerated PSV 8/5 for approximately 3 hours, and had to be placed on CMV mode as dropped his tidal volumes and was tachypneic 08/24: Patient tolerated PSV 10/5 for few hours and had increased work of breathing and decrease tidal volumes so was placed back on CMV mode -08/25: Tolerated pressure support ventilation 10/5 all day long and was switched to ASV overnight -08/26: Tolerated PSV 10/5 for a few hours and had to be placed back on CMV mode of ventilation -08/27: Discuss with family, surgery, does not seem that the patient is going to come off the ventilator since he is not tolerating appropriate spontaneous breathing trial. Discussed with them regarding tracheostomy to which the family and the surgeon are agreeable. ENT has been consulted and tracheostomy scheduled for 08/30 Continue Bumex as needed to keep balance even 08/28 did not tolerate PSV for prolonged period of time (2) Sepsis: Qualifiers: Sepsis type: sepsis due to unspecified organism Sepsis acute organ dysfunction status: with acute organ dysfunction Severe sepsis acute organ dysfunction type: acute renal failure Acute renal failure type: unspecified Severe sepsis shock status: without septic shock Qualified Code(s): A41.9 - Sepsis, unspecified organism; R65.20 - Severe sepsis without septic shock; N17.9 - Acute kidney failure, unspecified Code(s): A41.9 - Sepsis, unspecified organism Status: Acute Assessment and Plan: Secondary to peritonitis. Patient also appears to have consolidation of the lower lobes on the CT done which could be aspiration versus atelectasis Repeat CT scan of abdomen and pelvis done on 08/06 showed gallbladder distention and also fluid collection
--- NOTE | 2023-08-29 11:25 | PC.NURSE ---
Pt transported to xray via bed with RN x 2 and RT at bedside. Pt tolerated procedure well. returned to unit
[2023-08-29 13:01] LABS: Glucose Point of Care 147 mg/dl (65-105)
[2023-08-29] MEDS: COLLAGENASE OINT 30 GM TUBE 1 APPLIC TOPICAL (13:42)
--- NOTE | 2023-08-29 14:18 | PCNFU ---
Nutrition Follow-Up Complete: Swallowing Difficulties as related to mentation/risk of aspiration as evidenced by NPO. goal: Meet estimated nutritional needs Patient will continue current goal. Pt current nutrition is TPN at 70 ml/hr. Last recorded weight is 115 kg, up from 108 kg on admit. Bowel Motility:+Bm reported 08/28 Labs Reviewed:Glu 133, BUN 33, Na 131, Alb 2.8, Hct 9.1,Hgb 28.8 Meds Noted: Protonix, Clinimix E at 70 ml/hr with 250 ml of 20% Lipid Emulsion. Skin: WNL Additional Notes: Patient remains on mechanical vent. Plans for Trach 08/30. Nutrition at this time is TPN at 70 ml/hr providing 1693 kcals/84 gms protein. Recommend Vital AF 1.2 at 20 ml/hr if tube feeding should be ordered. Flush 30 ml q 4 hours. Will monitor weight, labs, skin, meds, TPN every Saturday and Saturday.
[2023-08-29] MEDS: AMINO ACIDS 5%/D15W/E-LYTES/CA 2,000 ML with MULTIVITAMINS-12 INJ VIAL 1 2.5 ML, MULTIV... 70 ML IV CONT (14:55)
[2023-08-29] MEDS: FAT EMULSIONS IV 20% 250 ML 20.83 ML IVPB (14:56)
--- NOTE | 2023-08-29 15:38 | PM.PNGS ---
Progress Note: A&P Assessment and Plan (1) Decubitus ulcer: Code(s): L89.90 - Pressure ulcer of unspecified site, unspecified stage Status: Acute Assessment and Plan: Continue Santyl dressing changes and frequent turning. 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 Continue to monitor output of drain #3. (3) Cholecystitis: Code(s): K81.9 - Cholecystitis, unspecified Status: Acute Assessment and Plan: Cholecystogram shows a patent cystic duct. Will start clamping the cholecystostomy tube 2 hours out of every 4. Will reassess tomorrow. (4) Acute respiratory failure: Qualifiers: Respiratory failure complication: hypoxia and hypercapnia Qualified Code(s): J96.01 - Acute respiratory failure with hypoxia; J96.02 - Acute respiratory failure with hypercapnia Code(s): J96.00 - Acute respiratory failure, unspecified whether with hypoxia or hypercapnia Status: Acute Assessment and Plan: ENT consulted for tracheostomy that is scheduled for Saturday. Continue vent management per [employer] with the hope that he could avoid the tracheostomy if he is able to be extubated before Saturday. (5) Protein-calorie malnutrition, severe: Code(s): E43 - Unspecified severe protein-calorie malnutrition Status: Acute Assessment and Plan: Continue TPN as per dietitian nutritional recommendations. (6) Fever: Qualifiers: Fever type: unspecified Qualified Code(s): R50.9 - Fever, unspecified Code(s): R50.9 - Fever, unspecified Status: Acute Assessment and Plan: Improved. He has been afebrile since midnight. WBC remains normal. (7) Atrial fibrillation with rapid ventricular response: Code(s): I48.91 - Unspecified atrial fibrillation Status: Acute Assessment and Plan: Switched to therapeutic-dosed Lovenox. Plan I have discussed the patient's case and plan of care with Dr. Armijo. Subjective Subjective Date/Time Seen: 08/29/23 15:38 Patient reports: afebrile Interval history: Patient intubated in the ICU and awake. No fevers today since midnight last night. Heparin drip off and switched to Lovenox. He is still on TPN. No acute issues overnight per nursing. Review of Systems Review of Systems: ROS unobtainable: Yes unobtainable due to endotracheal tube Exam Narrative: Patient intubated and awake off sedation Const: General: comfortable GI: Inspection: non-distended GI Palp: Yes Soft to palpation, No Tenderness to palpation present (GI) and No Guarding due to palpation present (GI) Auscultation: Hypoactive bowel sounds present Other: RUQ cholecystostomy tube with bilious output LLQ drain #3 with scant brown drainage that still appears enteric : Other: Right groin incision appears about the same with minimal ecchymosis and hematoma stable, no erythema and this is nontender Urinary Catheter: Urinary Catheter: patent and draining Objective Data Vital Signs Vital Signs: Vital Signs - 24 hr 08/28/23 16:00 08/28/23 16:00 08/28/23 16:00 Temperature 100.2 F H Pulse Rate 81 Respiratory Rate 20 Blood Pressure 114/71 Pulse Oximetry 99 Oxygen Delivery Mechanical Ventilation Fraction of Inspired Oxygen 30 30 08/28/23 16:50 08/28/23 18:00 08/28/23 18:00 Temperature 100.0 F H Pulse Rate 93 93 94 Respiratory Rate 18 Blood Pressure 106/78 Pulse Oximetry 100 100 Oxygen Delivery Mechanical Ventilation Fraction of Inspired Oxygen 30 08/28/23 20:00 08/28/23 20:00 08/28/23 20:26 Temperature 100 F H Pulse Rate 91 Respiratory Rate 17 Blood Pressure 115/75 Pulse Oximetry 99 Oxygen Delivery Fraction of Inspired Oxygen 30 30 08/28/23 20:50 08/28/23 20:00 08/28/23 20:00 Temperature Pulse Rate 90 93 Respiratory Rate B
[2023-08-29 15:39] LABS: Triglycerides 129 mg/dL (<150)
--- NOTE | 2023-08-29 16:38 | PM.IMPN ---
Progress Note: A&P Assessment and Plan (1) Respiratory failure: Code(s): J96.90 - Respiratory failure, unspecified, unspecified whether with hypoxia or hypercapnia Status: Acute Assessment and Plan: Patient had acute respiratory failure earlier felt to be multifactorial due to fluid overload, possible aspiration pneumonia vs atelectasis. CXR 08/09 showed mild pulm edema, small left pleural effusion, right opacities worsening concerning for pneumonia--CT less concerning for PNA. MRSA swab negative 08/09: Linezolid added to cover Enterococcus species growing from cholecystostomy tube Lasix then Bumex was given with improved resp status. Weaned to room air. He remained on IV Bumex. ------ On the morning of 08/15, patient developed acute respiratory distress. ABG 7.37/62/58 so BiPAP ordered Repeat ABG 7.15/101/91 so patient intubated. CXR reviewed showing diffuse lung disease c/w edema vs PNA vs atelectasis Cumulative fluid balance at that time was +2.7L with excellent UOP past few days prior Consider pulmonary edema vs ARDS vs aspiration but NPO so felt less likely. Good UOP with Bumex but UOP dropping off He remains on mechanical ventilation CXR today showing clear lungs He has failed breathing trials with plans for possible trach tomorrow Appreciate oracle database consultant input. (2) Sepsis: Qualifiers: Acute renal failure type: unspecified Sepsis acute organ dysfunction status: with acute organ dysfunction Sepsis type: sepsis due to unspecified organism Severe sepsis acute organ dysfunction type: acute renal failure Severe sepsis shock status: without septic shock Qualified Code(s): A41.9 - Sepsis, unspecified organism; R65.20 - Severe sepsis without septic shock; N17.9 - Acute kidney failure, unspecified Code(s): A41.9 - Sepsis, unspecified organism Status: Acute Assessment and Plan: Currently being treated for cholecystitis + pelvic abscesses UCx 08/05, 08/06, 08/16 negative GB Cx 08/06 growing enterococcus but unable to perform sensitivities Abscess Cx 08/06 Prevotella that is beta-lactamase positive BCx 08/06 negative. MRSA nasal swab 08/09 negative BCx 08/10 negative. Fungal cx 08/11 pending (?) CT A/P 08/13 showing multiple intraperitoneal abscesses similar to 08/09 with worsening mass involving the right inguinal canal and right scrotum. 08/14: Multiple Abd drains placed with culture growing H. parainfluenza and prevotella BCx 08/[address] A/P 08/18 slight increase in fluid collection adjacent to LLQ pigtail drain measuring 3 cm, other fluid collections are either stable or slightly smaller in size, stable right groin infected hematoma, cystitis versus bladder wall thickening, Weathers catheter in place but balloon not visualized and mild fecal impaction. Tx with meropenem, linezolid. Micafungin added 08/11 he completed a course of linezolid stopped 08/19. meropenem changed to Cefepime and Flagyl. Flagyl and Cefepime stopped 08/23 Micafungin stopped 08/25 after 14 days course Zosyn started 08/23 through 08/26 Still with low grade fevers and WBC remaining normal All abx stopped on 08/26 Appears to be improving now that we have better source control Appreciate GenSurg input. (3) Cholecystitis: Code(s): K81.9 - Cholecystitis, unspecified Status: Acute Assessment and Plan: Cholecystostomy fluid drained and tube placed 08/06 Culture growing Enterococcus species but unable to perform sensitivities. Discussed with infectious disease pharmacist, initiated on linezolid 08/09 due to resistance patterns and completed a 10 day course Cholangiogram today showing duct patency. Plan for clamping trial Cholecystostomy tube management per GenSurg (4) Shock: Code(s): R57.9 - Shock, unspecified Status: Acute Assessment and Plan: Patient was hemodynamically stable prior to intubation but then blood pressure dropped.? This could be combination of sedation versus se
--- NOTE | 2023-08-29 18:24 | PM.IMHP ---
H&P: HPI History of Present Illness Date/Time: 08/29/23 18:24 Chief Complaint: Respiratory failure Narrative: Plan tracheostomy Review of Systems Review of Systems: All systems reviewed & are unremarkable except as noted in HPI and below [facility] Past Medical History Medical History Basal cell carcinoma BMI 31.0-31.9,adult BMI 32.0-32.9,adult BMI greater than 30 Brain bleed CAD (coronary artery disease) Constipation Decreased ROM of left shoulder Elevated glucose GERD (gastroesophageal reflux disease) Hepatitis B Hyperlipidemia Hypertension Hypothyroid Myocardial infarct Paroxysmal atrial fibrillation Prediabetes Prostate CA Screening for prostate cancer Seizures Surgical History Surgical History H/O arthroscopy lt knee H/O prostatectomy 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 Yen Hx of local excision of skin lesion Family History Family History Father Malignant neoplasm of prostate Sibling Ovarian cancer Mother , epilepsy No problems noted. Sibling No problems noted. Social History Social History Smoking packs per day: 2 Smoking cigarettes per day: 40.0 Years smoked: 12 Smoking pack-years: 24.00 Smoking status: Former smoker Tobacco type: cigarettes Second hand tobacco smoke exposure: No Smoking end date: 09/23/70 Alcohol intake: current Alcohol use details: RARELY - 1/2 CASE BEER/YR Substance use: never Substance use type: does not use Lack of Transportation: No Lack of Food: Never True Current Housing: I Have Housing Concerned About Future Housing: No Difficulty Paying Gas/Electric Bills: No Difficulty Paying for Meds: No Currently Unemployed: No Education: High School Diploma/GED Difficulty w/ Childcare or Family Care: No Living arrangements: with family Occupation/Education: retired 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[employer] Gender identity (if verbalized by the patient): Male Spiritual care concerns: No Meds Home Medications and Allergies Home Medications Medication Instructions Recorded Confirmed Type amlodipine 10 mg tablet 10 mg PO DAILY 05/15/22 08/02/23 History aspirin 81 mg chewable tablet 2 tablet PO DAILY 05/15/22 08/02/23 History loratadine 10 mg tablet (Claritin) 10 mg PO DAILY 05/15/22 08/02/23 History losartan 25 mg tablet 25 mg PO DAILY 05/15/22 08/02/23 History levothyroxine 100 mcg tablet 100 mcg PO DAILY #90 tabs 06/10/23 08/02/23 Rx coenzyme Q10 30 mg capsule (Co 30 mg PO DAILY 06/11/23 08/02/23 History Q-10) omega 8-evx-dki-fish oil 60 mg-90 1 cap PO DAILY 06/11/23 08/02/23 History mg-500 mg capsule (Fish Oil) rivaroxaban 20 mg tablet (Xarelto) 20 mg PO QPM 07/30/23 08/02/23 History oxycodone-acetaminophen 5 mg-325 0.5 - 1 tablet PO Q6H PRN pain #10 08/02/23 Rx mg tablet tabs Allergies Allergy/AdvReac Type Severity Reaction Status Date / Time benazepril Allergy Unknown Unknown - Verified 08/02/23 10:15 PT UNABLE TO RECALL Mfonfgq-NFG-MvE Reductase Allergy Unknown Joint Pain Verified 08/02/23 10:15 Inhibitor & MUSCLE [Rdrkoeg-Gge-Tud Reductase WEAKNESS Inhibitor] halobetasol AdvReac Rash Verified 08/02/23 10:15 Vital Signs Vital Signs - 24 hr 08/28/23 20:00 08/28/23 20:00 08/28/23 20:26 Temperature 37.7 C H Pulse Rate 91 Respiratory Rate 17 Blood Pressure 115/75 Pulse Oximetry 99 Oxygen Delivery Fraction of Inspired Oxygen 30 30 08/28/23 20:50 08/28/23 20:00 08/28/23 20:00 Temperature Pulse Rate 90 93 Respiratory Rate Blood Pressure Pulse Oximetry 99 Oxygen Delivery Mechanical
[2023-08-29 18:55] LABS: Glucose Point of Care 130 mg/dl (65-105)
[2023-08-30] VITALS (33 sets, daily range): BP systolic 93–136; BP diastolic 62–98; PULSE 69–98; RESP 14–22; TEMP 36.4–37.3; O2SAT 97–100
[2023-08-30 00:54] LABS: Glucose Point of Care 129 mg/dl (65-105)
[2023-08-30 04:19] LABS: Basophils Absolute Auto 0.1 K/mm3 (0.0-0.1); Basophils Percent Auto 0.7 % (0.2-1.2); Eosinophils Absolute Auto 0.3 K/mm3 (0-0.3); Eosinophils Percent Auto 3.7 % (0-4.4); Hematocrit 30.6 % (42.0-52.0); Hemoglobin 9.6 g/dL (14.0-18.0); Immature Granulocyte Absolute 0.68 K/mm3 (0.00-0.031); Immature Granulocyte Percent A 7.5 % (0-0.5); Lymphocytes Percent Auto 13.3 % (18.3-44.2); Mean Corpuscular HGB Conc 31.4 g/dl (32-36); Mean Corpuscular Hemoglobin 30.6 pg (26-34); Mean Corpuscular Volume 97.5 fl (80-100); Mean Platelet Volume 10.4 fl (7.4-10.4); Monocytes Absolute Auto 0.5 K/mm3 (0.1-0.6); Monocytes Percent Auto 5.9 % (2.6-8.5); Neutrophils Absolute Auto 6.2 K/mm3 (1.3-6.7); Neutrophils Percent Auto 68.9 % (45.5-73.1); Platelet Count Result 378 k/mm3 (150-375); Red Blood Count 3.14 M/mm3 (4.6-6.20); Red Cell Distribution Width 14.6 % (11.5-14.5)
[2023-08-30 04:38] LABS: Alanine Aminotransferase 88 U/L (6-50); Albumin Level 2.9 g/dL (3.5-5.1); Alkaline Phosphatase 363 U/L (38-126); Anion Gap 4 mmol/L (8-16); Aspartate Amino Transferase 88 U/L (17-59); Bilirubin,Total 1.1 mg/dL (0.2-1.3); Blood Urea Nitrogen 30 mg/dL (9-20); Calcium 8.6 mg/dL (8.4-10.2); Carbon Dioxide 29 mmol/L (22-30); Chloride 100 mmol/L (98-107); Estimated CRCL calculation 65 ml/min; Estimated Glomerular Filt Rate > 60; Glucose 118 mg/dL (65-110); Magnesium 2.5 mg/dL (1.6-2.3); Phosphorus 4.1 mg/dL (2.5-4.5); Potassium 4.5 mmol/L (3.4-5.0); Sodium 133 mmol/L (137-145)
[2023-08-30 05:21] LABS: Alveolar/Arterial O2 Gradient 42.4 mmHg; Base Excess ABG 4.5 mEq/l (+/-2.0); Carboxyhemoglobin 0.3 % THb (0-2.0); Fractional Inspired Oxygen 30 %; HCO3 ABG 28.7 mEq/l (22.0-26.0); Methemoglobin ABG 0.2 %THb (0-1.5); Oxygen Content ABG 20.7 %vol (16.0-22.0); Oxygen Saturation ABG 98.6 % (95.0-100.0); Oxyhemoglobin 97.3 % THb (90.0-100.0); PCO2 ABG 41.3 mmHg (35.0-45.0); Reduced Hemoglobin 2.2 %THb (0-5.0)
[2023-08-30 05:22] LABS: Device VENTILATOR; Modified Allen's Test Pass; Site Drawn LEFT RADIAL
[2023-08-30 05:23] LABS: Arterial Blood Gas PEEP 8 cmH2O; Arterial Blood Gas Tidal Volume 420 ml; Arterial Blood Gas Vent Mode CMV; Arterial Blood Gas Ventilator rate 15 /MIN
[2023-08-30] MEDS: LEVOTHYROXINE SODIUM INJ 100 MCG/5 ML VIAL 50 MCG IV PUSH (06:22)
[2023-08-30] MEDS: CENTRAL LINE FLUSH 10 ML IV PUSH ×3 (06:23→20:50)
--- NOTE | 2023-08-30 07:14 | WPDHPUPDATE1 ---
History and Physical Update Update Date/Time: 08/30/23 07:14 History and Physical has been reviewed, including an updated exam of the patient. There are NO changes in the patient's condition. Risks, benefits, and alternatives have been discussed and questions answered. Patient agrees to proceed with procedure.
--- NOTE | 2023-08-30 07:20 | PC.NURSE ---
Pt to OR via bed with family at bedside.
[2023-08-30] MEDS: ceFAZolin SODIUM 1 GM VIAL 2 GM IM (07:41)
--- NOTE | 2023-08-30 07:45 | WPDANESEPPF ---
Anes - Initial Pre Proc Eval Procedure: Operation Date: 08/02/23 12:00 Proposed Procedures p Open Right Inguinal Hernia Repair with Mesh - Jaxon Armijo MD Operation Date: 08/30/23 08:00 Proposed Procedures p Tracheostomy - Gus Mendez MD Date/Time: 08/30/23 07:45 Surgeon: Jaxon Armijo MD Pre Op Diagnosis: Acute respiratory failure Pre Op Diagnosis: right inguinal hernia Patient Data Age: 83 Gender: M Height: 1.83 m Weight: 115 kg Last Vital Signs Temp 37.2 C 08/30/23 06:00 Pulse 78 08/30/23 06:00 Resp 16 08/30/23 06:00 BP 98/69 L 08/30/23 06:00 Pulse Ox 100 08/30/23 04:53 O2 Del Method Mechanical Ventilation 08/30/23 04:53 O2 Flow Rate 2 08/15/23 04:00 FiO2 30 08/30/23 04:53 Allergies Allergy/AdvReac Type Severity Reaction Status Date / Time benazepril Allergy Unknown Unknown - Verified 08/02/23 10:15 PT UNABLE TO RECALL Kwcxtuc-DDQ-YqO Reductase Allergy Unknown Joint Pain Verified 08/02/23 10:15 Inhibitor & MUSCLE [Jwksjxz-Nha-Guw Reductase WEAKNESS Inhibitor] halobetasol AdvReac Rash Verified 08/02/23 10:15 Home Medications Medication Instructions Recorded Confirmed Type amlodipine 10 mg tablet 10 mg PO DAILY 05/15/22 08/02/23 History aspirin 81 mg chewable tablet 2 tablet PO DAILY 05/15/22 08/02/23 History loratadine 10 mg tablet (Claritin) 10 mg PO DAILY 05/15/22 08/02/23 History losartan 25 mg tablet 25 mg PO DAILY 05/15/22 08/02/23 History levothyroxine 100 mcg tablet 100 mcg PO DAILY #90 tabs 06/10/23 08/02/23 Rx coenzyme Q10 30 mg capsule (Co 30 mg PO DAILY 06/11/23 08/02/23 History Q-10) omega 9-mso-hlc-fish oil 60 mg-90 1 cap PO DAILY 06/11/23 08/02/23 History mg-500 mg capsule (Fish Oil) rivaroxaban 20 mg tablet (Xarelto) 20 mg PO QPM 07/30/23 08/02/23 History oxycodone-acetaminophen 5 mg-325 0.5 - 1 tablet PO Q6H PRN pain #10 08/02/23 Rx mg tablet tabs Laboratory Tests 08/29/23 08/29/23 08/29/23 06:17 12:56 15:14 WBC 8.6 K/mm3 (4.5-10.0) RBC 2.99 L M/mm3 (4.6-6.20) Hgb 9.1 L g/dL (14.0-18.0) Hct 28.8 L % (42.0-52.0) MCV 96.3 fl (80-100) MCH 30.4 pg (26-34) MCHC 31.6 L g/dl (32-36) RDW 14.6 H % (11.5-14.5) Plt Count 361 k/mm3 (150-375) MPV 10.5 H fl (7.4-10.4) Immature Gran % (Auto) 8.2 H % (0-0.5) Neut % (Auto) 66.9 % (45.5-73.1) Lymph % (Auto) 13.2 L % (18.3-44.2) [place] % (Auto) 6.4 % (2.6-8.5) Eos % (Auto) 4.6 H % (0-4.4) Baso % (Auto) 0.7 % (0.2-1.2) Lymph # (Auto) 1.14 K/mm3 (0.9-3.2) [place] # (Auto) 0.6 K/mm3 (0.1-0.6) Eos # (Auto) 0.4 H K/mm3 (0-0.3) Baso # (Auto) 0.1 K/mm3 (0.0-0.1) Abs Immat Gran (auto) 0.71 H K/mm3 (0.00-0.031) Absolute Neuts (auto) 5.8 K/mm3 (1.3-6.7) Absolute Nucleated RBC 0.0 K/mm3 (0.0-0.012) Nucleated RBC % 0.0 % (0.0-0.2) Platelet Estimate Adequate (Adequate) Hypochromasia 1+ (NORMAL) Schistocytes None seen (NORMAL) Puncture Site ABG pH ABG pCO2 ABG pO2 ABG PO2/FiO2 Ratio ABG HCO3 ABG O2 Saturation ABG O2 Content ABG Base Excess A-a Gradient Oxyhemoglobin Carboxyhemoglobin Methemoglobin Reduced Hemoglobin Total Hemoglobin O2 Delivery Device O2 Liters/Min Minute Volume Vent Rate Vent Mode FiO2 Tidal Volume PEEP Peak Inspir Pressure Pressure Support Sodium Potassium Chloride Carbon Dioxide Anion Gap
[2023-08-30] MEDS: LIDO 1%/EPINEPHRINE 1:100,000 20 ML VIAL 5 ML INFILTRATE (08:01)
--- NOTE | 2023-08-30 08:27 | P.OP_ITS ---
Procedure Note - Detailed Date of Procedure 08/30/23 Pre-op Diagnosis Respiratory failure Post-op Diagnosis Same Procedure Performed tracheostomy Surgeon Gus Mendez MD Anesthesia General Indications see above Findings low-lying trachea trach smith trach placed below tracheal ring 1 it was fused with 2 tracheal ring 1 cracked slightly. Eight cuffed Shiley placed. Minimal blood loss. Description of Procedure Patient identified consent verified the ICU. Patient brought OR. Time-out performed. General anesthesia deepened. Patient prepped draped positioned procedure confirmed. Second time-out performed. 3 cc 1% lidocaine 1 100,000 parts epinephrine injected deep debris drawn surgical incision about 1-2 fingerbreadths above the clavicular notch sternal notch. Fifteen blade utilized to create a 1 in about 2-3 cm incision. Bovie electrocautery utilized to dissect down through the platysmal layer then vertically down with [place] retraction. To the cricoid. Cricoid hook placed retracted superiorly. Trachea identified. Thyroid isthmus bovied off it. Minimal bleeding. About 5 cc of blood loss. A 15 blade utilized to create tracheotomy distal about between tracheal rings 1 and 2 which were fused heavy curved Fortune scissors utilized to complete tracheotomy. A 8 Shiley placed tracheal ring 1 was slightly cracked. Cuff was inflated end-tidal CO2 confirmed. Four sutures were placed to hold the trach in trach ties placed anesthesia removed the endotracheal tube as well as the orogastric tube. Blood loss 5 cc. I performed all dictated portions of procedure drains 1 drain sponge placed care the patient can Anesthesiology patient returned to ICU. Estimated Blood Loss -5.0 Urine Output 850 Drains No Packing No Pathology None sent Complications No immediate complications Condition Stable Disposition PACU [facility] Billing Surgery - Charge Forward: Surgery Billing
--- NOTE | 2023-08-30 08:32 | PC.NURSE ---
Pt returned from OR. Trach in place. No issues noted
[2023-08-30] MEDS: COLLAGENASE OINT 30 GM TUBE 1 APPLIC TOPICAL (08:45)
[2023-08-30] MEDS: MINERAL OIL/WHITE PETROLATUM OINTMENT 1 APPLIC EACH EYE ×2 (08:45→20:50)
[2023-08-30] MEDS: PANTOPRAZOLE SODIUM IV 40 MG VIAL IV PUSH (09:39)
--- NOTE | 2023-08-30 10:28 | WPDINTPN ---
Progress Note: A&P Assessment and Plan (1) Acute respiratory failure: Qualifiers: Respiratory failure complication: hypoxia and hypercapnia Qualified Code(s): J96.01 - Acute respiratory failure with hypoxia; J96.02 - Acute respiratory failure with hypercapnia Code(s): J96.00 - Acute respiratory failure, unspecified whether with hypoxia or hypercapnia Status: Acute Assessment and Plan: Acute hypoxic and hypercarbic respiratory failure. Chest x-ray shows diffuse lung disease most likely which improved with diuretics. ABG chest x-ray and ventilator settings reviewed this morning 08/17 Patient placed on PSV but failed quickly due to high RSBI. PSV increased to 15/8 to get adequate RSBI. Patient tolerated that for many hours It appears the patient is severely deconditioned and weak 08/18 will re try PSV again today. Continue Bumex to manage the fluid balance 08/19 patient placed on PSV again today. Patient either had low rate on high pressure support or low tidal volume lower pressure support. I was able to get adequate RSBI on 06/30. This is better than what he has done in the past but still good enough for extubation. I will continue pressure support ventilation as tolerated through the day and try to wean down pressure support. 08/20 patient placed on PSV again and can only get adequate RSBI on 06/30. If extubated patient will need and NIPPV which because of his deconditioning and fluctuating mental status may not be good option. Will continue PSV as tolerated today Antibiotics as below Low tidal volume management -08/21, patient placed on pressure support ventilation 08/27, respiratory rate was low with decreased tidal volumes, placed on ASV mode, patient's respiratory rate remained low patient was placed back on CMV mode, will try again today -08/22: Patient tolerated PSV 10/5 for approximately 6-7 hours after which the tidal volumes were low, patient seemed to be tired and weak and was placed on CMV mode 08/23: Tolerated PSV 8/5 for approximately 3 hours, and had to be placed on CMV mode as dropped his tidal volumes and was tachypneic 08/24: Patient tolerated PSV 10/5 for few hours and had increased work of breathing and decrease tidal volumes so was placed back on CMV mode -08/25: Tolerated pressure support ventilation 10/5 all day long and was switched to ASV overnight -08/26: Tolerated PSV 10/5 for a few hours and had to be placed back on CMV mode of ventilation -08/27: Discuss with family, surgery, does not seem that the patient is going to come off the ventilator since he is not tolerating appropriate spontaneous breathing trial. Discussed with them regarding tracheostomy to which the family and the surgeon are agreeable. ENT has been consulted and tracheostomy scheduled for 08/30 Continue Bumex as needed to keep balance even 08/28 did not tolerate PSV for prolonged period of time 08/30 patient now status post tracheostomy. Will try PSV again later today (2) Sepsis: Qualifiers: Sepsis type: sepsis due to unspecified organism Sepsis acute organ dysfunction status: with acute organ dysfunction Severe sepsis acute organ dysfunction type: acute renal failure Acute renal failure type: unspecified Severe sepsis shock status: without septic shock Qualified Code(s): A41.9 - Sepsis, unspecified organism; R65.20 - Severe sepsis without septic shock; N17.9 - Acute kidney failure, unspecified Code(s): A41.9 - Sepsis, unspecified organism Status: Acute Assessment and Plan: Secondary to peritonitis. Patient also appears to have consolidation of the lower lobes on the CT done which could be aspiration versus atelectasis Repeat CT scan of abdomen and pelvis done on 08/06 showed gallbladder distention and also fluid collection likely exudative 08/06 patient underwent cholecystostomy and drainage of peritoneal abscess-cultures have been sent IR placed drain in abscess and right and gallbladder which are i
--- NOTE | 2023-08-30 11:46 | PC.NURSE ---
Spoke with Dr. Armijo regarding pt's NG/OG tube placement. Dr. Armijo would like to hold off on NG/OG placement at this time, make pt NPO until re-evaluation with swallow evaluation on Saturday. Hold all oral medications until further notice. May place NG/OG if pt's condition changes and is warranted (i.e. vomiting) after confirmation from surgery. Family updated with plan of care.
--- NOTE | 2023-08-30 11:53 | PC.NURSE ---
Spoke with Dr. Peacock regarding PO medications. After discussing plan of care with surgeon, Dr. Armijo, Dr. Peacock is in agreement with holding pt's PO medications until re-revaluation with swallow study on Saturday.
[2023-08-30 11:55] LABS: Glucose Point of Care 152 mg/dl (65-105)
--- NOTE | 2023-08-30 12:01 | PM.PNGS ---
Progress Note: A&P Assessment and Plan (1) Acute respiratory failure: Qualifiers: Respiratory failure complication: hypoxia and hypercapnia Qualified Code(s): J96.01 - Acute respiratory failure with hypoxia; J96.02 - Acute respiratory failure with hypercapnia Code(s): J96.00 - Acute respiratory failure, unspecified whether with hypoxia or hypercapnia Status: Acute Assessment and Plan: Tolerated tracheostomy well. Hold off on tube feeds this weekend. Modified swallow on Saturday. (2) Protein-calorie malnutrition, severe: Code(s): E43 - Unspecified severe protein-calorie malnutrition Status: Acute Assessment and Plan: Continue TPN (3) Respiratory failure: Code(s): J96.90 - Respiratory failure, unspecified, unspecified whether with hypoxia or hypercapnia Status: Acute Assessment and Plan: Remains on ventilator. Discussed with Dr. Peacock. 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 Well drained. No sign sepsis at this time. (5) Cholecystitis: Code(s): K81.9 - Cholecystitis, unspecified Status: Acute Assessment and Plan: Cholecystostomy tube clamped with no problems. Biliary catheter cholangiogram was negative earlier this week. (6) Decubitus ulcer: Code(s): L89.90 - Pressure ulcer of unspecified site, unspecified stage Status: Acute Assessment and Plan: Posterior space right behind rectum. Looks better but no way it will not be contaminated by stool. Patient not a candidate for diverting colostomy at this time. Subjective Subjective Date/Time Seen: 08/30/23 12:01 Patient reports: no new complaints Interval history: Sleepy after tracheostomy placed early this morning. Has tolerated the procedure well. Review of Systems Review of Systems: ROS unobtainable: Yes unobtainable due to medical condition Exam Const: General: comfortable and lethargic GI: Inspection: non-distended GI Palp: Yes Soft to palpation, No Tenderness to palpation present (GI) and Yes Other GI palpation findings present (Biliary tube clamped without problems all through the night.) Other: Small amount of drainage from enterocutaneous fistula drain, 3, yesterday. : Male General Exam: Yes other (Hernia incision seems to have had more swelling in the underlying tissues) Penis: Yes normal penis Scrotum: edematous (Much less edematous than it has been.) Urinary Catheter: Urinary Catheter: patent and draining Objective Data Vital Signs Vital Signs: Vital Signs - 24 hr 08/29/23 14:00 08/29/23 15:02 08/29/23 17:25 Temperature 37.3 C Pulse Rate 80 83 74 Respiratory Rate 20 Blood Pressure 124/75 Pulse Oximetry 100 100 Oxygen Delivery Mechanical Ventilation Mechanical Ventilation Fraction of Inspired Oxygen 30 30 08/29/23 16:00 08/29/23 16:00 08/29/23 16:00 Temperature Pulse Rate 74 Respiratory Rate Blood Pressure Pulse Oximetry 100 Oxygen Delivery Mechanical Ventilation Fraction of Inspired Oxygen 30 30 08/29/23 16:00 08/29/23 18:00 08/29/23 20:00 Temperature 37.1 C 37.2 C Pulse Rate 78 83 Respiratory Rate 18 15 Blood Pressure 94/67 L 104/70 Pulse Oximetry 100 100 99 Oxygen Delivery Mechanical Ventilation Fraction of Inspired Oxygen 30 08/29/23 20:00 08/29/23 20:00 08/29/23 20:00 Temperature 37.2 C Pulse Rate 74 74 Respiratory Rate 12 Blood Pressure 111/73 Pulse Oximetry 100 Oxygen Delivery Fraction of Inspired Oxygen 30 08/29/23 20:44 08/29/23 23:35 08/29/23 22:00 Temperature Pulse Rate 89 93 82 Respiratory Rate Blood Pressure Pulse Oximetry 100 100 Oxygen Delivery Mechanical Ventilation Mechanical Ventilation Fraction of Inspired Oxygen 30 30 08/29/23 22:00 08/30/23 00:00 08/30/23 00:00 Temperature 37.3 C 37.2 C Pulse R
--- NOTE | 2023-08-30 12:53 | PCNFU ---
Nutrition Follow-Up Complete: Swallowing Difficulties as related to mentation/risk of aspiration as evidenced by NPO. goal: Meet estimated nutritional needs Patient will continue current goal. Pt current nutrition is TPN. Last recorded weight is 115 kg, up from 108 kg on admit. Bowel Motility:+BM reported 08/29 Labs Reviewed:Mg 2.5, Glu 118, BUN 30, Na 133, Alb 2.9,Hct 30.6,Hgb 9.6 Meds Noted:Clinimix E at 70 ml/hr with 250 ml of 20% Lipid Emulsion,Protonix, Synthroid, Heparin. Skin: WNL Additional Notes: Patient remains on a TPN. Trach placed today. Surgery reporting plans to hold on tube feeding this weekend. Possible MBS next week. TPN will continue to provide 1693 kcals/84 gms protein. Meeting 84% kcal needs and 87% protein needs. Triglycerides lab ran 08/29-127 WNL. Will continue to monitor. Will monitor weight, labs, skin, meds, TPN every Saturday and Saturday.
[2023-08-30] MEDS: AMINO ACIDS 5%/D15W/E-LYTES/CA 2,000 ML with MULTIVITAMINS-12 INJ VIAL 1 2.5 ML, MULTIV... 70 ML IV CONT (15:45)
[2023-08-30] MEDS: FAT EMULSIONS IV 20% 250 ML 20.83 ML IVPB (15:45)
[2023-08-30] MEDS: MORPHINE SULFATE (*CRX) 2 MG/ML INJ 1 MG IV PUSH (15:57)
--- NOTE | 2023-08-30 16:25 | PC.NURSE ---
Report called to MANUEL Kolb at [facility].
--- NOTE | 2023-08-30 18:00 | PM.IMPN ---
Progress Note: A&P Assessment and Plan (1) Respiratory failure: Code(s): J96.90 - Respiratory failure, unspecified, unspecified whether with hypoxia or hypercapnia Status: Acute Assessment and Plan: Patient had acute respiratory failure earlier felt to be multifactorial due to fluid overload, possible aspiration pneumonia vs atelectasis. CXR 08/09 showed mild pulm edema, small left pleural effusion, right opacities worsening concerning for pneumonia--CT less concerning for PNA. MRSA swab negative 08/09: Linezolid added to cover Enterococcus species growing from cholecystostomy tube Lasix then Bumex was given with improved resp status. Weaned to room air. He remained on IV Bumex. ------ On the morning of 08/15, patient developed acute respiratory distress. ABG 7.37/62/58 so BiPAP ordered Repeat ABG 7.15/101/91 so patient intubated. CXR reviewed showing diffuse lung disease c/w edema vs PNA vs atelectasis Cumulative fluid balance at that time was +2.7L with excellent UOP past few days prior Consider pulmonary edema vs ARDS vs aspiration but NPO so felt less likely. Good UOP with Bumex but UOP dropping off He remains on mechanical ventilation; Trach placed today. CXR today showing clear lungs Appreciate machine ii coremaker and ENT input. (2) Sepsis: Qualifiers: Sepsis type: sepsis due to unspecified organism Sepsis acute organ dysfunction status: with acute organ dysfunction Severe sepsis acute organ dysfunction type: acute renal failure Acute renal failure type: unspecified Severe sepsis shock status: without septic shock Qualified Code(s): A41.9 - Sepsis, unspecified organism; R65.20 - Severe sepsis without septic shock; N17.9 - Acute kidney failure, unspecified Code(s): A41.9 - Sepsis, unspecified organism Status: Acute Assessment and Plan: Currently being treated for cholecystitis + pelvic abscesses UCx 08/05, 08/06, 08/16 negative GB Cx 08/06 growing enterococcus but unable to perform sensitivities Abscess Cx 08/06 Prevotella that is beta-lactamase positive BCx 08/06 negative. MRSA nasal swab 08/09 negative BCx 08/10 negative. Fungal cx 08/11 pending (?) CT A/P 08/13 showing multiple intraperitoneal abscesses similar to 08/09 with worsening mass involving the right inguinal canal and right scrotum. 08/14: Multiple Abd drains placed with culture growing H. parainfluenza and prevotella BCx 08/[address] A/P 08/18 slight increase in fluid collection adjacent to LLQ pigtail drain measuring 3 cm, other fluid collections are either stable or slightly smaller in size, stable right groin infected hematoma, cystitis versus bladder wall thickening, Weathers catheter in place but balloon not visualized and mild fecal impaction. Tx with meropenem, linezolid. Micafungin added 08/11 he completed a course of linezolid stopped 08/19. meropenem changed to Cefepime and Flagyl. Flagyl and Cefepime stopped 08/23 Micafungin stopped 08/25 after 14 days course Zosyn started 08/23 through 08/26 WBC remaining normal and fevers resolved now All abx stopped on 08/26 Appears to be improving now that we have better source control Appreciate GenSurg input. (3) Cholecystitis: Code(s): K81.9 - Cholecystitis, unspecified Status: Acute Assessment and Plan: Cholecystostomy fluid drained and tube placed 08/06 Culture growing Enterococcus species but unable to perform sensitivities. Discussed with infectious disease pharmacist, initiated on linezolid 08/09 due to resistance patterns and completed a 10 day course Cholangiogram 08/29 showing duct patency. 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
[2023-08-30 18:14] LABS: Glucose Point of Care 155 mg/dl (65-105)
--- NOTE | 2023-08-30 18:37 | PC.NURSE ---
[address] staff member Meliza notified of patient departure.
[2023-08-30] MEDS: ENOXAPARIN 120 MG/0.8 ML SYRINGE 115 MG SUB-Q (20:50)
[2023-08-30 23:14] LABS: Glucose Point of Care 143 mg/dl (65-105)
[2023-08-31] VITALS (23 sets, daily range): BP systolic 117–147; BP diastolic 72–89; PULSE 76–101; RESP 9–20; TEMP 36.6–37.2; O2SAT 94–100
[2023-08-31] MEDS: CENTRAL LINE FLUSH 10 ML IV PUSH ×3 (06:03→21:55)
[2023-08-31] MEDS: LEVOTHYROXINE SODIUM INJ 100 MCG/5 ML VIAL 50 MCG IV PUSH (06:03)
[2023-08-31 06:12] LABS: Hematocrit 30.3 % (42.0-52.0); Hemoglobin 9.6 g/dL (14.0-18.0); Mean Corpuscular HGB Conc 31.7 g/dl (32-36); Mean Corpuscular Hemoglobin 30.9 pg (26-34); Mean Corpuscular Volume 97.4 fl (80-100); Mean Platelet Volume 10.6 fl (7.4-10.4); Platelet Count Result 380 k/mm3 (150-375); Red Blood Count 3.11 M/mm3 (4.6-6.20); Red Cell Distribution Width 14.3 % (11.5-14.5); White Blood Count 9.7 K/mm3 (4.5-10.0)
[2023-08-31 06:31] LABS: Alanine Aminotransferase 74 U/L (6-50); Albumin Level 2.8 g/dL (3.5-5.1); Alkaline Phosphatase 326 U/L (38-126); Anion Gap 5 mmol/L (8-16); Aspartate Amino Transferase 69 U/L (17-59); Bilirubin,Total 0.9 mg/dL (0.2-1.3); Blood Urea Nitrogen 28 mg/dL (9-20); Calcium 8.4 mg/dL (8.4-10.2); Carbon Dioxide 28 mmol/L (22-30); Chloride 101 mmol/L (98-107); Estimated CRCL calculation 71 ml/min; Estimated Glomerular Filt Rate > 60; Glucose 143 mg/dL (65-110); Potassium 4.3 mmol/L (3.4-5.0); Sodium 134 mmol/L (137-145)
[2023-08-31] MEDS: ENOXAPARIN 120 MG/0.8 ML SYRINGE 115 MG SUB-Q ×2 (09:52→21:54)
[2023-08-31] MEDS: COLLAGENASE OINT 30 GM TUBE 1 APPLIC TOPICAL (09:54)
[2023-08-31] MEDS: MINERAL OIL/WHITE PETROLATUM OINTMENT 1 APPLIC EACH EYE ×2 (09:54→21:55)
[2023-08-31] MEDS: PANTOPRAZOLE SODIUM IV 40 MG VIAL IV PUSH (09:54)
--- NOTE | 2023-08-31 10:28 | PM.IMPN ---
Progress Note: A&P Assessment and Plan (1) Respiratory failure: Code(s): J96.90 - Respiratory failure, unspecified, unspecified whether with hypoxia or hypercapnia Status: Acute Assessment and Plan: Patient had acute respiratory failure earlier felt to be multifactorial due to fluid overload, possible aspiration pneumonia vs atelectasis. CXR 08/09 showed mild pulm edema, small left pleural effusion, right opacities worsening concerning for pneumonia--CT less concerning for PNA. MRSA swab negative 08/09: Linezolid added to cover Enterococcus species growing from cholecystostomy tube Lasix then Bumex was given with improved resp status. Weaned to room air. He remained on IV Bumex. ------ On the morning of 08/15, patient developed acute respiratory distress. ABG 7.37/62/58 so BiPAP ordered Repeat ABG 7.15/101/91 so patient intubated. CXR reviewed showing diffuse lung disease c/w edema vs PNA vs atelectasis Cumulative fluid balance at that time was +2.7L with excellent UOP past few days prior Consider pulmonary edema vs ARDS vs aspiration but NPO so felt less likely. Good UOP with Bumex but UOP dropping off He remains on mechanical ventilation; Trach placed 08/30 CXR 08/30 showing clear lungs Appreciate sales floor team member and ENT input. (2) Sepsis: Qualifiers: Sepsis type: sepsis due to unspecified organism Sepsis acute organ dysfunction status: with acute organ dysfunction Severe sepsis acute organ dysfunction type: acute renal failure Acute renal failure type: unspecified Severe sepsis shock status: without septic shock Qualified Code(s): A41.9 - Sepsis, unspecified organism; R65.20 - Severe sepsis without septic shock; N17.9 - Acute kidney failure, unspecified Code(s): A41.9 - Sepsis, unspecified organism Status: Acute Assessment and Plan: Currently being treated for cholecystitis + pelvic abscesses UCx 08/05, 08/06, 08/16 negative GB Cx 08/06 growing enterococcus but unable to perform sensitivities Abscess Cx 08/06 Prevotella that is beta-lactamase positive BCx 08/06 negative. MRSA nasal swab 08/09 negative BCx 08/10 negative. Fungal cx 08/11 pending (?) CT A/P 08/13 showing multiple intraperitoneal abscesses similar to 08/09 with worsening mass involving the right inguinal canal and right scrotum. 08/14: Multiple Abd drains placed with culture growing H. parainfluenza and prevotella BCx 08/[address] A/P 08/18 slight increase in fluid collection adjacent to LLQ pigtail drain measuring 3 cm, other fluid collections are either stable or slightly smaller in size, stable right groin infected hematoma, cystitis versus bladder wall thickening, Weathers catheter in place but balloon not visualized and mild fecal impaction. Tx with meropenem, linezolid. Micafungin added 08/11 he completed a course of linezolid stopped 08/19. meropenem changed to Cefepime and Flagyl. Flagyl and Cefepime stopped 08/23 Micafungin stopped 08/25 after 14 days course Zosyn started 08/23 through 08/26 WBC remaining normal and fevers resolved now All abx stopped on 08/26 Appears to be improving now that we have better source control Appreciate GenSurg input. (3) Cholecystitis: Code(s): K81.9 - Cholecystitis, unspecified Status: Acute Assessment and Plan: Cholecystostomy fluid drained and tube placed 08/06 Culture growing Enterococcus species but unable to perform sensitivities. Discussed with infectious disease pharmacist, initiated on linezolid 08/09 due to resistance patterns and completed a 10 day course Cholangiogram 08/29 showing duct patency. 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
--- NOTE | 2023-08-31 11:02 | PM.PNGS ---
Progress Note: A&P Assessment and Plan (1) Acute respiratory failure: Qualifiers: Respiratory failure complication: hypoxia and hypercapnia Qualified Code(s): J96.01 - Acute respiratory failure with hypoxia; J96.02 - Acute respiratory failure with hypercapnia Code(s): J96.00 - Acute respiratory failure, unspecified whether with hypoxia or hypercapnia Status: Acute Assessment and Plan: s/p Tracheostomy. Hold tube feedings this weekend. Modified swallow on Saturday. (2) Protein-calorie malnutrition, severe: Code(s): E43 - Unspecified severe protein-calorie malnutrition Status: Acute Assessment and Plan: Continue TPN (3) Respiratory failure: Code(s): J96.90 - Respiratory failure, unspecified, unspecified whether with hypoxia or hypercapnia Status: Acute Assessment and Plan: Remains on ventilator. Discussed with Dr. Peacock. 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 Well drained. No sign sepsis at this time. (5) Cholecystitis: Code(s): K81.9 - Cholecystitis, unspecified Status: Acute Assessment and Plan: Cholecystostomy tube clamped with no problems. Biliary catheter cholangiogram was negative earlier this week. (6) Decubitus ulcer: Code(s): L89.90 - Pressure ulcer of unspecified site, unspecified stage Status: Acute Assessment and Plan: Posterior space right behind rectum. Looks better but no way it will not be contaminated by stool. Patient not a candidate for diverting colostomy at this time. Subjective Subjective Date/Time Seen: 08/31/23 11:02 Interval history: No acute changes. Doing well since tracheostomy tube placement. Still on ventilator. Exam GI: Inspection: non-distended and other (Pigtail drain with minimal output) GI Palp: Yes Soft to palpation, No Tenderness to palpation present (GI) and No Guarding due to palpation present (GI) Auscultation: normal bowel sounds Objective Data Vital Signs Vital Signs: Vital Signs - 24 hr 08/30/23 11:18 08/30/23 12:00 08/30/23 12:00 Temperature Pulse Rate 82 Respiratory Rate Blood Pressure Pulse Oximetry 99 100 Oxygen Delivery Mechanical Ventilation Mechanical Ventilation Fraction of Inspired Oxygen 30 30 30 08/30/23 11:52 08/30/23 12:00 08/30/23 12:30 Temperature 36.8 C 36.8 C Pulse Rate 73 69 73 Respiratory Rate 16 17 Blood Pressure 93/65 L 102/62 Pulse Oximetry 98 99 Oxygen Delivery Fraction of Inspired Oxygen 08/30/23 13:37 08/30/23 13:44 08/30/23 14:00 Temperature 36.8 C 36.7 C Pulse Rate 80 82 86 Respiratory Rate 19 16 Blood Pressure 127/67 127/73 Pulse Oximetry 99 100 99 Oxygen Delivery Mechanical Ventilation Fraction of Inspired Oxygen 30 08/30/23 14:00 08/30/23 14:30 08/30/23 16:30 Temperature 36.8 C Pulse Rate 86 77 84 Respiratory Rate 16 Blood Pressure 116/79 Pulse Oximetry 99 100 Oxygen Delivery Mechanical Ventilation Fraction of Inspired Oxygen 30 08/30/23 15:52 08/30/23 16:00 08/30/23 16:00 Temperature 36.8 C Pulse Rate 79 81 Respiratory Rate 15 Blood Pressure 123/76 Pulse Oximetry 100 100 Oxygen Delivery Mechanical Ventilation Fraction of Inspired Oxygen 30 08/30/23 16:00 08/30/23 18:00 08/30/23 18:49 Temperature 36.9 C Pulse Rate 83 78 Respiratory Rate 17 Blood Pressure 115/72 Pulse Oximetry 100 Oxygen Delivery Fraction of Inspired Oxygen 30 08/30/23 19:13 08/30/23 20:00 08/30/23 20:00 Temperature 36.9 C Pulse Rate 77 81 Respiratory Rate 14 Blood Pressure 121/76 Pulse Oximetry 100 99 Oxygen Delivery Mechanical Ventilation Fraction of Inspired Oxygen 30 30 08/30/23 20:00 08/30/23 20:00 08/30/23 22:00 Temperature Pulse Rate 81 84 78 Respiratory Rate 14 Blood Pressure Pulse Oximetry 99
[2023-08-31 12:06] LABS: Glucose Point of Care 143 mg/dl (65-105)
--- NOTE | 2023-08-31 13:00 | WPDANESPN ---
Anes - Prog Note Post-Op Date/Time: 08/31/23 13:00 Cardiovascular status: other (soft BP. asymptomatic) Respiratory status: normal Airway patency: baseline Mental status: baseline Post-Op hydration status: normal Vital Signs: Last Vital Signs Temp 98.5 F 08/31/23 12:00 Pulse 82 08/31/23 12:00 Resp 11 L 08/31/23 12:00 BP 120/73 08/31/23 12:00 Pulse Ox 100 08/31/23 12:00 O2 Del Method Mechanical Ventilation 08/31/23 10:05 O2 Flow Rate 2 08/15/23 04:00 FiO2 30 08/31/23 10:05 Pain Score (VAS): 0 I/O: Intake & Output 08/30/23 08/31/23 08/31/23 23:59 07:59 15:59 Intake Total 0 Output Total 850 1500 Balance -850 -1500 Laboratory Tests 08/31/23 06:01 08/31/23 06:01 08/30/23 08/30/23 08/31/23 18:00 23:06 06:01 WBC 9.7 RBC 3.11 L Hgb 9.6 L Hct 30.3 L MCV 97.4 MCH 30.9 MCHC 31.7 L RDW 14.3 Plt Count 380 H MPV 10.6 H Sodium 134 L Potassium 4.3 Chloride 101 Carbon Dioxide 28 Anion Gap 5 L BUN 28 H Creatinine 0.90 Estim Creat Clear Calc 71 Estimated GFR > 60 Glucose 143 H POC Capillary Glucose 155 H 143 H Calcium 8.4 Total Bilirubin 0.9 AST 69 H ALT 74 H Alkaline Phosphatase 326 H Total Protein 7.0 Albumin 2.8 L 08/31/23 11:53 WBC RBC Hgb Hct MCV MCH MCHC RDW Plt Count MPV Sodium Potassium Chloride Carbon Dioxide Anion Gap BUN Creatinine Estim Creat Clear Calc Estimated GFR Glucose POC Capillary Glucose 143 H Calcium Total Bilirubin AST ALT Alkaline Phosphatase Total Protein Albumin Post-procedural complaints: none Patient Feedback: Patient satisfied with anesthetic care.family at bedside. pt nods appropriately, denies complaints. family states he has been resting well since his trach
[2023-08-31] MEDS: AMINO ACIDS 5%/D15W/E-LYTES/CA 2,000 ML with MULTIVITAMINS-12 INJ VIAL 1 2.5 ML, MULTIV... 70 ML IV CONT (16:19)
[2023-08-31] MEDS: FAT EMULSIONS IV 20% 250 ML 20.83 ML IVPB (16:20)
[2023-08-31 18:01] LABS: Glucose Point of Care 138 mg/dl (65-105)
[2023-09-01] VITALS (22 sets, daily range): BP systolic 112–146; BP diastolic 73–96; PULSE 93–120; RESP 18–23; TEMP 37–38.9; O2SAT 92–96
[2023-09-01 00:31] LABS: Glucose Point of Care 123 mg/dl (65-105)
[2023-09-01] MEDS: CENTRAL LINE FLUSH 10 ML IV PUSH ×3 (06:15→21:10)
[2023-09-01] MEDS: LEVOTHYROXINE SODIUM INJ 100 MCG/5 ML VIAL 50 MCG IV PUSH (06:15)
[2023-09-01 06:29] LABS: Hematocrit 32.3 % (42.0-52.0); Hemoglobin 10.1 g/dL (14.0-18.0); Mean Corpuscular HGB Conc 31.3 g/dl (32-36); Mean Corpuscular Hemoglobin 30.7 pg (26-34); Mean Corpuscular Volume 98.2 fl (80-100); Mean Platelet Volume 10.6 fl (7.4-10.4); Platelet Count Result 405 k/mm3 (150-375); Red Blood Count 3.29 M/mm3 (4.6-6.20); Red Cell Distribution Width 14.6 % (11.5-14.5); White Blood Count 13.8 K/mm3 (4.5-10.0)
[2023-09-01 06:44] LABS: Alanine Aminotransferase 94 U/L (6-50); Albumin Level 3.3 g/dL (3.5-5.1); Alkaline Phosphatase 360 U/L (38-126); Anion Gap 6 mmol/L (8-16); Aspartate Amino Transferase 84 U/L (17-59); Bilirubin,Total 0.9 mg/dL (0.2-1.3); Blood Urea Nitrogen 24 mg/dL (9-20); Calcium 8.7 mg/dL (8.4-10.2); Carbon Dioxide 26 mmol/L (22-30); Chloride 103 mmol/L (98-107); Estimated CRCL calculation 78 ml/min; Estimated Glomerular Filt Rate > 60; Glucose 120 mg/dL (65-110); Magnesium 2.3 mg/dL (1.6-2.3); Phosphorus 3.9 mg/dL (2.5-4.5); Potassium 4.3 mmol/L (3.4-5.0); Sodium 135 mmol/L (137-145)
[2023-09-01] MEDS: ACETAMINOPHEN 650 MG SUPPOSITORY RECTAL (06:51)
--- NOTE | 2023-09-01 08:18 | PM.IMPN ---
Progress Note: A&P Assessment and Plan (1) Respiratory failure: Code(s): J96.90 - Respiratory failure, unspecified, unspecified whether with hypoxia or hypercapnia Status: Acute Assessment and Plan: Patient had acute respiratory failure earlier felt to be multifactorial due to fluid overload, possible aspiration pneumonia vs atelectasis. CXR 08/09 showed mild pulm edema, small left pleural effusion, right opacities worsening concerning for pneumonia--CT less concerning for PNA. MRSA swab negative 08/09: Linezolid added to cover Enterococcus species growing from cholecystostomy tube Lasix then Bumex was given with improved resp status. Weaned to room air. He remained on IV Bumex. ------ On the morning of 08/15, patient developed acute respiratory distress. ABG 7.37/62/58 so BiPAP ordered Repeat ABG 7.15/101/91 so patient intubated. CXR reviewed showing diffuse lung disease c/w edema vs PNA vs atelectasis Cumulative fluid balance at that time was +2.7L with excellent UOP past few days prior Consider pulmonary edema vs ARDS vs aspiration but NPO so felt less likely. Good UOP with Bumex but UOP dropping off He remains on mechanical ventilation; Trach placed 08/30 CXR 08/30 showing clear lungs Now having excessive secretions and low grade fever. WBC higher today. Check CXR. Appreciate burial needs salesperson and ENT input. (2) Sepsis: Qualifiers: Sepsis type: sepsis due to unspecified organism Sepsis acute organ dysfunction status: with acute organ dysfunction Severe sepsis acute organ dysfunction type: acute renal failure Acute renal failure type: unspecified Severe sepsis shock status: without septic shock Qualified Code(s): A41.9 - Sepsis, unspecified organism; R65.20 - Severe sepsis without septic shock; N17.9 - Acute kidney failure, unspecified Code(s): A41.9 - Sepsis, unspecified organism Status: Acute Assessment and Plan: Currently being treated for cholecystitis + pelvic abscesses UCx 08/05, 08/06, 08/16 negative GB Cx 08/06 growing enterococcus but unable to perform sensitivities Abscess Cx 08/06 Prevotella that is beta-lactamase positive BCx 08/06 negative. MRSA nasal swab 08/09 negative BCx 08/10 negative. Fungal cx 08/11 pending (?) CT A/P 08/13 showing multiple intraperitoneal abscesses similar to 08/09 with worsening mass involving the right inguinal canal and right scrotum. 08/14: Multiple Abd drains placed with culture growing H. parainfluenza and prevotella BCx 08/[address] A/P 08/18 slight increase in fluid collection adjacent to LLQ pigtail drain measuring 3 cm, other fluid collections are either stable or slightly smaller in size, stable right groin infected hematoma, cystitis versus bladder wall thickening, Weathers catheter in place but balloon not visualized and mild fecal impaction. Tx with meropenem, linezolid. Micafungin added 08/11 he completed a course of linezolid stopped 08/19. meropenem changed to Cefepime and Flagyl. Flagyl and Cefepime stopped 08/23 Micafungin stopped 08/25 after 14 days course Zosyn started 08/23 through 08/26 WBC remaining normal and fevers resolved now All abx stopped on 08/26 Abdominal infection improving now that we have better source control Appreciate GenSurg input. (3) Cholecystitis: Code(s): K81.9 - Cholecystitis, unspecified Status: Acute Assessment and Plan: Cholecystostomy fluid drained and tube placed 08/06 Culture growing Enterococcus species but unable to perform sensitivities. Discussed with infectious disease pharmacist, initiated on linezolid 08/09 due to resistance patterns and completed a 10 day course Cholangiogram 08/29 showing duct patency. 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
[2023-09-01] MEDS: PANTOPRAZOLE SODIUM IV 40 MG VIAL IV PUSH (09:22)
[2023-09-01] MEDS: ENOXAPARIN 120 MG/0.8 ML SYRINGE 115 MG SUB-Q ×2 (09:22→21:09)
[2023-09-01] MEDS: MINERAL OIL/WHITE PETROLATUM OINTMENT 1 APPLIC EACH EYE ×2 (09:23→21:10)
[2023-09-01] MEDS: COLLAGENASE OINT 30 GM TUBE 1 APPLIC TOPICAL (09:24)
--- NOTE | 2023-09-01 09:33 | PM.PNGS ---
Progress Note: A&P Assessment and Plan (1) Acute respiratory failure: Qualifiers: Respiratory failure complication: hypoxia and hypercapnia Qualified Code(s): J96.01 - Acute respiratory failure with hypoxia; J96.02 - Acute respiratory failure with hypercapnia Code(s): J96.00 - Acute respiratory failure, unspecified whether with hypoxia or hypercapnia Status: Acute Assessment and Plan: s/p Tracheostomy. Hold tube feedings this . Modified swallow on Saturday. (2) Protein-calorie malnutrition, severe: Code(s): E43 - Unspecified severe protein-calorie malnutrition Status: Acute Assessment and Plan: Continue TPN (3) Respiratory failure: Code(s): J96.90 - Respiratory failure, unspecified, unspecified whether with hypoxia or hypercapnia Status: Acute Assessment and Plan: Remains on ventilator. Discussed with Dr. Peacock. Fevers this AM and worsening secretions. Getting sputum cultures this AM. 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 Well drained. (5) Cholecystitis: Code(s): K81.9 - Cholecystitis, unspecified Status: Acute Assessment and Plan: Cholecystostomy tube clamped with no problems. Biliary catheter cholangiogram was negative earlier this week. (6) Decubitus ulcer: Code(s): L89.90 - Pressure ulcer of unspecified site, unspecified stage Status: Acute Assessment and Plan: Posterior space right behind rectum. Looks better but no way it will not be contaminated by stool. Patient not a candidate for diverting colostomy at this time. Subjective Subjective Date/Time Seen: 09/01/23 09:33 Interval history: Fevers this AM. Having some increased respiratory secretions. No change in abdominal exam. Exam GI: Inspection: non-distended and other (Pigtail drain with minimal output) GI Palp: Yes Soft to palpation, No Tenderness to palpation present (GI) and No Guarding due to palpation present (GI) Auscultation: normal bowel sounds Objective Data Vital Signs Vital Signs: Vital Signs - 24 hr 08/31/23 10:00 08/31/23 10:05 08/31/23 12:00 Temperature 36.8 C 36.9 C Pulse Rate 92 88 82 Respiratory Rate 14 11 L Blood Pressure 128/80 120/73 Pulse Oximetry 100 98 100 Oxygen Delivery Mechanical Ventilation Fraction of Inspired Oxygen 30 08/31/23 13:15 08/31/23 14:00 08/31/23 10:00 Temperature 36.9 C Pulse Rate 90 84 92 Respiratory Rate 9 L Blood Pressure 118/76 Pulse Oximetry 100 100 Oxygen Delivery Mechanical Ventilation Fraction of Inspired Oxygen 30 08/31/23 12:00 08/31/23 12:00 08/31/23 12:00 Temperature Pulse Rate 89 Respiratory Rate Blood Pressure Pulse Oximetry 99 Oxygen Delivery Mechanical Ventilation Fraction of Inspired Oxygen 30 30 08/31/23 16:00 08/31/23 17:05 08/31/23 16:00 Temperature 36.9 C Pulse Rate 95 94 Respiratory Rate 20 Blood Pressure 140/79 Pulse Oximetry 100 98 Oxygen Delivery Mechanical Ventilation Fraction of Inspired Oxygen 30 30 08/31/23 18:00 08/31/23 14:00 08/31/23 16:00 Temperature 37.0 C Pulse Rate 90 82 79 Respiratory Rate 20 Blood Pressure 137/89 Pulse Oximetry 100 Oxygen Delivery Fraction of Inspired Oxygen 08/31/23 18:00 08/31/23 16:00 08/31/23 20:50 Temperature Pulse Rate 93 90 Respiratory Rate Blood Pressure Pulse Oximetry 100 99 Oxygen Delivery Mechanical Ventilation Mechanical Ventilation Fraction of Inspired Oxygen 30 30 08/31/23 20:00 08/31/23 20:00 08/31/23 23:40 Temperature 37.1 C Pulse Rate 96 98 Respiratory Rate 19 Blood Pressure 147/87 H Pulse Oximetry 94 95 Oxygen Delivery Mechanical Ventilation Mechanical Ventilation Fraction of Inspired Oxygen 30 30 08/31/23 20:00 08/31/23 20:00 08/31/23 22:00 Temperature Puls
--- NOTE | 2023-09-01 10:23 | WPDINTPN ---
Progress Note: A&P Assessment and Plan (1) Acute respiratory failure: Qualifiers: Respiratory failure complication: hypoxia and hypercapnia Qualified Code(s): J96.01 - Acute respiratory failure with hypoxia; J96.02 - Acute respiratory failure with hypercapnia Code(s): J96.00 - Acute respiratory failure, unspecified whether with hypoxia or hypercapnia Status: Acute Assessment and Plan: Acute hypoxic and hypercarbic respiratory failure. Chest x-ray shows diffuse lung disease most likely which improved with diuretics. ABG chest x-ray and ventilator settings reviewed this morning 08/17 Patient placed on PSV but failed quickly due to high RSBI. PSV increased to 15/8 to get adequate RSBI. Patient tolerated that for many hours It appears the patient is severely deconditioned and weak 08/18 will re try PSV again today. Continue Bumex to manage the fluid balance 08/19 patient placed on PSV again today. Patient either had low rate on high pressure support or low tidal volume lower pressure support. I was able to get adequate RSBI on 06/30. This is better than what he has done in the past but still good enough for extubation. I will continue pressure support ventilation as tolerated through the day and try to wean down pressure support. 08/20 patient placed on PSV again and can only get adequate RSBI on 06/30. If extubated patient will need and NIPPV which because of his deconditioning and fluctuating mental status may not be good option. Will continue PSV as tolerated today Antibiotics as below Low tidal volume management -08/21, patient placed on pressure support ventilation 08/27, respiratory rate was low with decreased tidal volumes, placed on ASV mode, patient's respiratory rate remained low patient was placed back on CMV mode, will try again today -08/22: Patient tolerated PSV 10/5 for approximately 6-7 hours after which the tidal volumes were low, patient seemed to be tired and weak and was placed on CMV mode 08/23: Tolerated PSV 8/5 for approximately 3 hours, and had to be placed on CMV mode as dropped his tidal volumes and was tachypneic 08/24: Patient tolerated PSV 10/5 for few hours and had increased work of breathing and decrease tidal volumes so was placed back on CMV mode -08/25: Tolerated pressure support ventilation 10/5 all day long and was switched to ASV overnight -08/26: Tolerated PSV 10/5 for a few hours and had to be placed back on CMV mode of ventilation -08/27: Discuss with family, surgery, does not seem that the patient is going to come off the ventilator since he is not tolerating appropriate spontaneous breathing trial. Discussed with them regarding tracheostomy to which the family and the surgeon are agreeable. ENT has been consulted and tracheostomy scheduled for 08/30 Continue Bumex as needed to keep balance even 08/28 did not tolerate PSV for prolonged period of time 08/30 patient now status post tracheostomy. 08/31 patient placed on PSV t but only tolerated for some time as patient kept on going into apnea ventilation and switching SIMV mode. 09/01 will try PSV again today (2) Sepsis: Qualifiers: Sepsis type: sepsis due to unspecified organism Sepsis acute organ dysfunction status: with acute organ dysfunction Severe sepsis acute organ dysfunction type: acute renal failure Acute renal failure type: unspecified Severe sepsis shock status: without septic shock Qualified Code(s): A41.9 - Sepsis, unspecified organism; R65.20 - Severe sepsis without septic shock; N17.9 - Acute kidney failure, unspecified Code(s): A41.9 - Sepsis, unspecified organism Status: Acute Assessment and Plan: Secondary to peritonitis. Patient also appears to have consolidation of the lower lobes on the CT done which could be aspiration versus atelectasis Repeat CT scan of abdomen and pelvis done on 08/06 showed gallbladder distention and also fluid collection likely exudative 08/06 patient underwent c
[2023-09-01] MEDS: CEFEPIME 1 GM/NS 50 ML 1 GM/50 ML BAG IVPB ×2 (11:23→21:09)
[2023-09-01] MEDS: VANCOMYCIN 1,250 MG/NS 250 ML 1,250 MG/250 ML BAG 166.67 MG IVPB ×2 (11:23→13:30)
[2023-09-01 11:53] LABS: Appearance Urine Clear (Clear); Bacteria Urine None Seen /hpf; Bilirubin Urine Negative (Negative); Blood Urine Negative (Negative); Color Urine Yellow (Yellow); Glucose Urine UA Negative (Negative); Ketones Urine Negative (Negative); Leukocyte Esterase Ur Trace LEU/UL (Negative); Nitrate Urine Negative (Negative); Non Pathogenic Casts 0-2; Protein Urine Negative (Negative); RBC Urine 0-2 /hpf (0-2); Specific Grav Ur 1.015 (1.001-1.035); Squamous Epithelial Cell Urine None seen /hpf (Few); pH Urine 5.5 (5.0-9.0)
[2023-09-01 12:03] LABS: Glucose Point of Care 149 mg/dl (65-105)
[2023-09-01 12:12] LABS: Add Urine Microscopic? YES
--- NOTE | 2023-09-01 13:57 | PC.NURSE ---
Spoke with Shameka with main lab regarding fungal cultures from 08/11. Preliminary results showing no growth to date. Takes 4 weeks for final results, lab to call if results positive.
[2023-09-01 14:56] LABS: MRSA (PCR) NOT DETECTED (NOT DETECTE)
[2023-09-01] MEDS: AMINO ACIDS 5%/D15W/E-LYTES/CA 2,000 ML with MULTIVITAMINS-12 INJ VIAL 1 2.5 ML, MULTIV... 70 ML IV CONT (16:41)
[2023-09-01] MEDS: FAT EMULSIONS IV 20% 250 ML 20.83 ML IVPB (16:42)
[2023-09-01 17:26] LABS: Glucose Point of Care 156 mg/dl (65-105)
[2023-09-02] VITALS (22 sets, daily range): BP systolic 86–127; BP diastolic 69–84; PULSE 73–101; RESP 20–33; TEMP 37.3–38.4; O2SAT 90–98
[2023-09-02] MEDS: FUROSEMIDE INJ 40 MG/4 ML VIAL IV PUSH (04:00)
[2023-09-02 04:22] LABS: Alveolar/Arterial O2 Gradient < 0.0 mmHg; Base Excess ABG -0.3 mEq/l (+/-2.0); Carboxyhemoglobin 0.3 % THb (0-2.0); Fractional Inspired Oxygen 30 %; Methemoglobin ABG 0.4 %THb (0-1.5); Oxygen Content ABG 15.4 %vol (16.0-22.0); Oxygen Saturation ABG 99.5 % (95.0-100.0); Oxyhemoglobin 97.8 % THb (90.0-100.0); PCO2 ABG 32.8 mmHg (35.0-45.0); PO2 ABG 222.4 mmHg (80.0-100.0); PO2 FiO2 Ratio Arterial Blood > 0.00 %; Reduced Hemoglobin 1.5 %THb (0-5.0); Total Hemoglobin 10.8 g/dL (12.0-18.0); pH ABG 7.464 (7.350-7.450)
[2023-09-02 04:25] LABS: Site Drawn RIGHT RADIAL
[2023-09-02 04:26] LABS: Device VENTILATOR; Modified Allen's Test Pass
[2023-09-02 04:27] LABS: Arterial Blood Gas PEEP 8 cmH2O; Arterial Blood Gas Tidal Volume 420 ml; Arterial Blood Gas Vent Mode CMV; Arterial Blood Gas Ventilator rate 15 /MIN
[2023-09-02 05:37] LABS: Glucose Point of Care 150 mg/dl (65-105)
[2023-09-02 05:53] LABS: Basophils Absolute Auto 0.1 K/mm3 (0.0-0.1); Basophils Percent Auto 0.5 % (0.2-1.2); Eosinophils Absolute Auto 0.3 K/mm3 (0-0.3); Eosinophils Percent Auto 1.7 % (0-4.4); Hematocrit 31.4 % (42.0-52.0); Hemoglobin 9.8 g/dL (14.0-18.0); Immature Granulocyte Absolute 0.25 K/mm3 (0.00-0.031); Immature Granulocyte Percent A 1.7 % (0-0.5); Lymphocytes Absolute Auto 1.56 K/mm3 (0.9-3.2); Lymphocytes Percent Auto 10.3 % (18.3-44.2); Mean Corpuscular HGB Conc 31.2 g/dl (32-36); Mean Corpuscular Hemoglobin 30.8 pg (26-34); Mean Corpuscular Volume 98.7 fl (80-100); Mean Platelet Volume 10.8 fl (7.4-10.4); Monocytes Absolute Auto 0.8 K/mm3 (0.1-0.6); Neutrophils Absolute Auto 12.2 K/mm3 (1.3-6.7); Neutrophils Percent Auto 80.8 % (45.5-73.1); Platelet Count Result 370 k/mm3 (150-375); Red Blood Count 3.18 M/mm3 (4.6-6.20); Red Cell Distribution Width 14.7 % (11.5-14.5); White Blood Count 15.1 K/mm3 (4.5-10.0)
[2023-09-02 06:05] LABS: Alanine Aminotransferase 65 U/L (6-50); Albumin Level 3.1 g/dL (3.5-5.1); Alkaline Phosphatase 266 U/L (38-126); Anion Gap 3 mmol/L (8-16); Aspartate Amino Transferase 43 U/L (17-59); Bilirubin,Total 0.9 mg/dL (0.2-1.3); Blood Urea Nitrogen 24 mg/dL (9-20); Calcium 8.7 mg/dL (8.4-10.2); Carbon Dioxide 28 mmol/L (22-30); Chloride 101 mmol/L (98-107); Estimated CRCL calculation 64 ml/min; Estimated Glomerular Filt Rate > 60; Glucose 281 mg/dL (65-110); Magnesium 2.3 mg/dL (1.6-2.3); Phosphorus 4.5 mg/dL (2.5-4.5); Potassium 4.4 mmol/L (3.4-5.0); Sodium 132 mmol/L (137-145)
[2023-09-02] MEDS: VANCOMYCIN 1,500 MG/NS 500 ML 1,500 MG/500 ML BAG 250 MG IVPB (06:29)
[2023-09-02] MEDS: CENTRAL LINE FLUSH 10 ML IV PUSH ×3 (06:29→20:30)
[2023-09-02] MEDS: LEVOTHYROXINE SODIUM INJ 100 MCG/5 ML VIAL 50 MCG IV PUSH (06:29)
[2023-09-02] MEDS: INSULIN ASPART (*BKC) 100 UNITS/ML SUB-Q (06:29)
[2023-09-02] MEDS: COLLAGENASE OINT 30 GM TUBE 1 APPLIC TOPICAL (08:55)
[2023-09-02] MEDS: MINERAL OIL/WHITE PETROLATUM OINTMENT 1 APPLIC EACH EYE (08:55)
[2023-09-02] MEDS: PANTOPRAZOLE SODIUM IV 40 MG VIAL IV PUSH (08:55)
[2023-09-02] MEDS: ENOXAPARIN 120 MG/0.8 ML SYRINGE 115 MG SUB-Q ×2 (08:56→20:30)
[2023-09-02] MEDS: CEFEPIME 1 GM/NS 50 ML 1 GM/50 ML BAG IVPB (08:56)
--- NOTE | 2023-09-02 10:17 | WPDINTPN ---
Progress Note: A&P Assessment and Plan (1) Acute respiratory failure: Qualifiers: Respiratory failure complication: hypoxia and hypercapnia Qualified Code(s): J96.01 - Acute respiratory failure with hypoxia; J96.02 - Acute respiratory failure with hypercapnia Code(s): J96.00 - Acute respiratory failure, unspecified whether with hypoxia or hypercapnia Status: Acute Assessment and Plan: Acute hypoxic and hypercarbic respiratory failure. Chest x-ray shows diffuse lung disease most likely which improved with diuretics. ABG chest x-ray and ventilator settings reviewed this morning 08/17 Patient placed on PSV but failed quickly due to high RSBI. PSV increased to 15/8 to get adequate RSBI. Patient tolerated that for many hours It appears the patient is severely deconditioned and weak 08/18 will re try PSV again today. Continue Bumex to manage the fluid balance 08/19 patient placed on PSV again today. Patient either had low rate on high pressure support or low tidal volume lower pressure support. I was able to get adequate RSBI on 06/30. This is better than what he has done in the past but still good enough for extubation. I will continue pressure support ventilation as tolerated through the day and try to wean down pressure support. 08/20 patient placed on PSV again and can only get adequate RSBI on 06/30. If extubated patient will need and NIPPV which because of his deconditioning and fluctuating mental status may not be good option. Will continue PSV as tolerated today Antibiotics as below Low tidal volume management -08/21, patient placed on pressure support ventilation 08/27, respiratory rate was low with decreased tidal volumes, placed on ASV mode, patient's respiratory rate remained low patient was placed back on CMV mode, will try again today -08/22: Patient tolerated PSV 10/5 for approximately 6-7 hours after which the tidal volumes were low, patient seemed to be tired and weak and was placed on CMV mode 08/23: Tolerated PSV 8/5 for approximately 3 hours, and had to be placed on CMV mode as dropped his tidal volumes and was tachypneic 08/24: Patient tolerated PSV 10/5 for few hours and had increased work of breathing and decrease tidal volumes so was placed back on CMV mode -08/25: Tolerated pressure support ventilation 10/5 all day long and was switched to ASV overnight -08/26: Tolerated PSV 10/5 for a few hours and had to be placed back on CMV mode of ventilation -08/27: Discuss with family, surgery, does not seem that the patient is going to come off the ventilator since he is not tolerating appropriate spontaneous breathing trial. Discussed with them regarding tracheostomy to which the family and the surgeon are agreeable. ENT has been consulted and tracheostomy scheduled for 08/30 Continue Bumex as needed to keep balance even 08/28 did not tolerate PSV for prolonged period of time 08/30 patient now status post tracheostomy. 08/31 patient placed on PSV but only tolerated for some time as patient kept on going into apnea ventilation and switching SIMV mode. 09/02 will try PSV again today (2) Sepsis: Qualifiers: Acute renal failure type: unspecified Sepsis acute organ dysfunction status: with acute organ dysfunction Sepsis type: sepsis due to unspecified organism Severe sepsis acute organ dysfunction type: acute renal failure Severe sepsis shock status: without septic shock Qualified Code(s): A41.9 - Sepsis, unspecified organism; R65.20 - Severe sepsis without septic shock; N17.9 - Acute kidney failure, unspecified Code(s): A41.9 - Sepsis, unspecified organism Status: Acute Assessment and Plan: Secondary to peritonitis. Patient also appears to have consolidation of the lower lobes on the CT done which could be aspiration versus atelectasis Repeat CT scan of abdomen and pelvis done on 08/06 showed gallbladder distention and also fluid collection likely exudative 08/06 patient underwent ch
--- NOTE | 2023-09-02 10:48 | PCFNICU ---
ICU Rounding Note: Pt current nutrition is Clinmix /15E @ 70 ml/h: 1693 kcal, 84 g protein. Nutrition recommendation: Continue with current orders. Advance to trickle feeding when medically able Last recorded weight is 113 kg. Bowel Motility: Last BM +1 09/02/23 Labs Reviewed: Hgb 9.8, Hct 31.4, Alb 3.1, Na 132, BUN 24, Glu 281 Meds Noted: Protonix, Heparin, Zosyn Skin:No pressure related skin breakdown in notes Additional Notes: Discussed with RN, surgery wants all drains out before starting tube feeds. Sp/p tracheostomy 08/30/23. Tolerating TPN. Meeting ~84% energy needs, 87% estimated protein needs with TPN. Following daily in ICU rounds. Will montior weight, labs, skin, meds, TPN every Saturday and Saturday. .
[2023-09-02 12:13] LABS: Glucose Point of Care 133 mg/dl (65-105)
--- NOTE | 2023-09-02 13:38 | PM.PNGS ---
Progress Note: A&P Assessment and Plan (1) Fever: Qualifiers: Fever type: unspecified Qualified Code(s): R50.9 - Fever, unspecified Code(s): R50.9 - Fever, unspecified Status: Acute Assessment and Plan: New development of fever over the weekend. Cultures have been sent for blood urine sputum. Weathers catheter has been changed. He was started on cefepime and vancomycin. Chest x-rays have continued to be clear. Possible sources could be new intra-abdominal abscess, perianal wound, central line infection. Discussed with Dr. Peacock. Will get repeat CT scan abdomen and pelvis with IV contrast. (2) Respiratory failure: Qualifiers: Chronicity: chronic Respiratory failure complication: hypercapnia Qualified Code(s): J96.12 - Chronic respiratory failure with hypercapnia Code(s): J96.90 - Respiratory failure, unspecified, unspecified whether with hypoxia or hypercapnia Status: Acute Assessment and Plan: Doing well after tracheostomy. Currently breathing on his own with 8 cm peep (3) Protein-calorie malnutrition, severe: Code(s): E43 - Unspecified severe protein-calorie malnutrition Status: Acute Assessment and Plan: Albumin is improving. Only receiving 84% of nutritional requirements with TPN. Will increase rate slowly. 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 scan for new fluid collection. 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 Will discuss with family possibility of moving forward with diverting colostomy and Willy procedure. I do not see this wound healing without diversion. Subjective Subjective Date/Time Seen: 09/02/23 13:38 Patient reports: no new complaints, pain is less (Denies having any pain), bowel movement, fever (Had fever of 38.9 about 10:00 p.m. last night) and other (Sleepy today) Interval history: Has been breathing on his own with peep of 8 and no vent breaths required so far today Review of Systems Review of Systems: ROS unobtainable: Yes unobtainable due to medical condition Exam Const: General: comfortable, lethargic and tired appearing GI: Inspection: other (Biliary tube remains clamped, no output ECF 3 days) GI Palp: Yes Soft to palpation, No Tenderness to palpation present (GI) and No Guarding due to palpation present (GI) Auscultation: normal bowel sounds Other: Posterior rectal wound covered and liquid stool although nursing reports they had just changed him an hour ago. Wound still has a necrotic cover but no evidence of purulence or underlying abscess. Wound does not appear to be any smaller. Very difficult to expose. Redressed with Santyl. : Male General Exam: Yes other (Right groin incision continues to heal) Penis: Yes normal penis Scrotum: edematous (Less edematous) Urinary Catheter: Urinary Catheter: patent and draining Objective Data Vital Signs Vital Signs: Vital Signs - 24 hr 09/01/23 14:00 09/01/23 14:00 09/01/23 14:40 Temperature Pulse Rate 102 H 105 H 103 H Respiratory Rate 21 H Blood Pressure 133/84 Pulse Oximetry 94 94 Oxygen Delivery Mechanical Ventilation Fraction of Inspired Oxygen 30 09/01/23 16:00 09/01/23 16:00 09/01/23 18:00 Temperature 38.1 C H 37.7 C H Pulse Rate 106 H 109 H Respiratory Rate 22 H 23 H Blood Pressure 146/85 H 137/81 Pulse Oximetry 96 93 Oxygen Delivery Fraction of Inspired Oxygen 30 09/01/23 17:10 09/01/23 16:00 09/01/23 18:00 Temperature Pulse Rate 112 H 115 H 109 H Respiratory Rate Blood Pressure Pulse Oximetry 92 Oxygen Delivery Mechanical Ventilation Fraction of Inspired Oxygen 30 09/01/23 16:00 09/01/23 19:37 09/01/23 20:00 Temperature
--- NOTE | 2023-09-02 14:40 | PC.NURSE ---
pt had a moderaye black, semi-formed stool today then Dr. Armijo her and pt had small brown stool, anus area contiues to have stool around it, unable to keep clean now keep rosario applied to site, ct scan done as ordered
[2023-09-02] MEDS: AMINO ACIDS 5%/D15W/E-LYTES/CA 2,000 ML with MULTIVITAMINS-12 INJ VIAL 1 2.5 ML, MULTIV... 70 ML IV CONT (14:56)
[2023-09-02] MEDS: CEFEPIME 2 GM/NS 50 ML 2 GM/50 ML BAG IVPB ×2 (14:58→20:30)
[2023-09-02] MEDS: FAT EMULSIONS IV 20% 250 ML 20.83 ML IVPB (15:08)
--- NOTE | 2023-09-02 17:17 | PM.IMPN ---
Progress Note: A&P Assessment and Plan (1) Respiratory failure: Qualifiers: Chronicity: chronic Respiratory failure complication: hypercapnia Qualified Code(s): J96.12 - Chronic respiratory failure with hypercapnia Code(s): J96.90 - Respiratory failure, unspecified, unspecified whether with hypoxia or hypercapnia Status: Acute Assessment and Plan: Patient had acute respiratory failure earlier felt to be multifactorial due to fluid overload, possible aspiration pneumonia vs atelectasis. CXR 08/09 showed mild pulm edema, small left pleural effusion, right opacities worsening concerning for pneumonia--CT less concerning for PNA. MRSA swab negative 08/09: Linezolid added to cover Enterococcus species growing from cholecystostomy tube Lasix then Bumex was given with improved resp status. Weaned to room air. He remained on IV Bumex. ------ On the morning of 08/15, patient developed acute respiratory distress. ABG 7.37/62/58 so BiPAP ordered Repeat ABG 7.15/101/91 so patient intubated. CXR reviewed showing diffuse lung disease c/w edema vs PNA vs atelectasis Cumulative fluid balance at that time was +2.7L with excellent UOP past few days prior Consider pulmonary edema vs ARDS vs aspiration but NPO so felt less likely. Good UOP with Bumex but UOP dropping off He remains on mechanical ventilation; Trach placed 08/30 CXR today showing clear lungs Was having excessive secretions and fevers. WBC higher again today. CXR clear. Consider trachitis - abx resumed. Appreciate rehab aide and ENT input. (2) Sepsis: Qualifiers: Sepsis type: sepsis due to unspecified organism Sepsis acute organ dysfunction status: with acute organ dysfunction Severe sepsis acute organ dysfunction type: acute renal failure Acute renal failure type: unspecified Severe sepsis shock status: without septic shock Qualified Code(s): A41.9 - Sepsis, unspecified organism; R65.20 - Severe sepsis without septic shock; N17.9 - Acute kidney failure, unspecified Code(s): A41.9 - Sepsis, unspecified organism Status: Acute Assessment and Plan: Currently being treated for cholecystitis + pelvic abscesses UCx 08/05, 08/06, 08/16 negative GB Cx 08/06 growing enterococcus but unable to perform sensitivities Abscess Cx 08/06 Prevotella that is beta-lactamase positive BCx 08/06 negative. MRSA nasal swab 08/09 negative BCx 08/10 negative. Fungal cx 08/11 pending (?) CT A/P 08/13 showing multiple intraperitoneal abscesses similar to 08/09 with worsening mass involving the right inguinal canal and right scrotum. 08/14: Multiple Abd drains placed with culture growing H. parainfluenza and prevotella BCx 08/[address] A/P 08/18 slight increase in fluid collection adjacent to LLQ pigtail drain measuring 3 cm, other fluid collections are either stable or slightly smaller in size, stable right groin infected hematoma, cystitis versus bladder wall thickening, Weathers catheter in place but balloon not visualized and mild fecal impaction. Tx with meropenem, linezolid. Micafungin added 08/11 he completed a course of linezolid stopped 08/19. meropenem changed to Cefepime and Flagyl. Flagyl and Cefepime stopped 08/23 Micafungin stopped 08/25 after 14 days course Zosyn started 08/23 through 08/26 WBC remaining normal and fevers resolved now All abx stopped on 08/26 -------- As above. Abx resumed 09/01 CT A/P showing: An adjacent abscess to the drain measuring approximately 2.8 x 2.2 cm is not significantly changed (image 153). The previously described midline supraumbilical intra-abdominal abscess is not significantly changed measuring 3.2 x 1.5 cm (image 113). The hematoma of the right inguinal canal is not significantly changed Appreciate GenSurg input. (3) Cholecystitis: Code(s): K81.9 - Cholecystitis, unspecified Status: Acute Assessment and Plan: Cholecystostomy fluid drained and tube placed 08/06 Culture growing E
[2023-09-02 18:24] LABS: Glucose Point of Care 147 mg/dl (65-105)
[2023-09-03] VITALS (22 sets, daily range): BP systolic 95–179; BP diastolic 58–86; PULSE 60–100; RESP 16–21; TEMP 36.8–37.5; O2SAT 90–97
[2023-09-03 00:20] LABS: Glucose Point of Care 127 mg/dl (65-105)
[2023-09-03] MEDS: VANCOMYCIN 1,500 MG/NS 500 ML 1,500 MG/500 ML BAG 250 MG IVPB ×2 (01:17→12:41)
[2023-09-03] MEDS: LEVOTHYROXINE SODIUM INJ 100 MCG/5 ML VIAL 50 MCG IV PUSH (05:52)
[2023-09-03] MEDS: CENTRAL LINE FLUSH 10 ML IV PUSH ×3 (05:52→21:18)
[2023-09-03 06:01] LABS: Basophils Absolute Auto 0.1 K/mm3 (0.0-0.1); Basophils Percent Auto 0.6 % (0.2-1.2); Eosinophils Absolute Auto 0.6 K/mm3 (0-0.3); Eosinophils Percent Auto 6.3 % (0-4.4); Hematocrit 30.3 % (42.0-52.0); Hemoglobin 8.6 g/dL (14.0-18.0); Immature Granulocyte Absolute 0.26 K/mm3 (0.00-0.031); Immature Granulocyte Percent A 2.8 % (0-0.5); Lymphocytes Absolute Auto 1.22 K/mm3 (0.9-3.2); Mean Corpuscular HGB Conc 28.4 g/dl (32-36); Mean Corpuscular Hemoglobin 30.3 pg (26-34); Mean Corpuscular Volume 106.7 fl (80-100); Mean Platelet Volume 10.8 fl (7.4-10.4); Monocytes Absolute Auto 0.6 K/mm3 (0.1-0.6); Monocytes Percent Auto 6.2 % (2.6-8.5); Neutrophils Absolute Auto 6.7 K/mm3 (1.3-6.7); Neutrophils Percent Auto 71.1 % (45.5-73.1); Platelet Count Result 329 k/mm3 (150-375); Red Blood Count 2.84 M/mm3 (4.6-6.20); Red Cell Distribution Width 15.4 % (11.5-14.5); White Blood Count 9.4 K/mm3 (4.5-10.0)
[2023-09-03 07:11] LABS: Alanine Aminotransferase 48 U/L (6-50); Albumin Level 2.8 g/dL (3.5-5.1); Alkaline Phosphatase 224 U/L (38-126); Anion Gap 6 mmol/L (8-16); Aspartate Amino Transferase 28 U/L (17-59); Bilirubin,Total 0.8 mg/dL (0.2-1.3); Blood Urea Nitrogen 30 mg/dL (9-20); Calcium 8.4 mg/dL (8.4-10.2); Carbon Dioxide 25 mmol/L (22-30); Chloride 104 mmol/L (98-107); Estimated CRCL calculation 71 ml/min; Estimated Glomerular Filt Rate > 60; Glucose 133 mg/dL (65-110); Magnesium 2.3 mg/dL (1.6-2.3); Phosphorus 3.9 mg/dL (2.5-4.5); Potassium 3.9 mmol/L (3.4-5.0); Sodium 135 mmol/L (137-145)
[2023-09-03] MEDS: CEFEPIME 2 GM/NS 50 ML 2 GM/50 ML BAG IVPB ×2 (08:45→21:17)
[2023-09-03] MEDS: ENOXAPARIN 120 MG/0.8 ML SYRINGE 115 MG SUB-Q (08:46)
[2023-09-03] MEDS: MINERAL OIL/WHITE PETROLATUM OINTMENT 1 APPLIC EACH EYE ×2 (08:47→21:18)
[2023-09-03] MEDS: PANTOPRAZOLE SODIUM IV 40 MG VIAL IV PUSH (08:47)
[2023-09-03] MEDS: COLLAGENASE OINT 30 GM TUBE 1 APPLIC TOPICAL (09:01)
--- NOTE | 2023-09-03 09:23 | WPDINTPN ---
Progress Note: A&P Assessment and Plan (1) Acute respiratory failure: Qualifiers: Respiratory failure complication: hypoxia and hypercapnia Qualified Code(s): J96.01 - Acute respiratory failure with hypoxia; J96.02 - Acute respiratory failure with hypercapnia Code(s): J96.00 - Acute respiratory failure, unspecified whether with hypoxia or hypercapnia Status: Acute Assessment and Plan: Acute hypoxic and hypercarbic respiratory failure. Chest x-ray shows diffuse lung disease most likely which improved with diuretics. ABG chest x-ray and ventilator settings reviewed this morning 08/17 Patient placed on PSV but failed quickly due to high RSBI. PSV increased to 15/8 to get adequate RSBI. Patient tolerated that for many hours It appears the patient is severely deconditioned and weak 08/18 will re try PSV again today. Continue Bumex to manage the fluid balance 08/19 patient placed on PSV again today. Patient either had low rate on high pressure support or low tidal volume lower pressure support. I was able to get adequate RSBI on 06/30. This is better than what he has done in the past but still good enough for extubation. I will continue pressure support ventilation as tolerated through the day and try to wean down pressure support. 08/20 patient placed on PSV again and can only get adequate RSBI on 06/30. If extubated patient will need and NIPPV which because of his deconditioning and fluctuating mental status may not be good option. Will continue PSV as tolerated today Antibiotics as below Low tidal volume management -08/21, patient placed on pressure support ventilation 08/27, respiratory rate was low with decreased tidal volumes, placed on ASV mode, patient's respiratory rate remained low patient was placed back on CMV mode, will try again today -08/22: Patient tolerated PSV 10/5 for approximately 6-7 hours after which the tidal volumes were low, patient seemed to be tired and weak and was placed on CMV mode 08/23: Tolerated PSV 8/5 for approximately 3 hours, and had to be placed on CMV mode as dropped his tidal volumes and was tachypneic 08/24: Patient tolerated PSV 10/5 for few hours and had increased work of breathing and decrease tidal volumes so was placed back on CMV mode -08/25: Tolerated pressure support ventilation 10/5 all day long and was switched to ASV overnight -08/26: Tolerated PSV 10/5 for a few hours and had to be placed back on CMV mode of ventilation -08/27: Discuss with family, surgery, does not seem that the patient is going to come off the ventilator since he is not tolerating appropriate spontaneous breathing trial. Discussed with them regarding tracheostomy to which the family and the surgeon are agreeable. ENT has been consulted and tracheostomy scheduled for 08/30 Continue Bumex as needed to keep balance even 08/28 did not tolerate PSV for prolonged period of time 08/30 patient now status post tracheostomy. 08/31 patient placed on PSV but only tolerated for some time as patient kept on going into apnea ventilation and switching SIMV mode. 09/02 tolerated PSV till 7:00 p.m. with intermittent low respirator alarms 09/03 continue with PSV again today (2) Sepsis: Qualifiers: Sepsis type: sepsis due to unspecified organism Sepsis acute organ dysfunction status: with acute organ dysfunction Severe sepsis acute organ dysfunction type: acute renal failure Acute renal failure type: unspecified Severe sepsis shock status: without septic shock Qualified Code(s): A41.9 - Sepsis, unspecified organism; R65.20 - Severe sepsis without septic shock; N17.9 - Acute kidney failure, unspecified Code(s): A41.9 - Sepsis, unspecified organism Status: Acute Assessment and Plan: Secondary to peritonitis. Patient also appears to have consolidation of the lower lobes on the CT done which could be aspiration versus atelectasis Repeat CT scan of abdomen and pelvis done on 08/06 showed gallbladder
[2023-09-03 10:44] LABS: Triglycerides 133 mg/dL (<150)
--- NOTE | 2023-09-03 11:11 | PM.PNGS ---
Progress Note: A&P Assessment and Plan (1) Fever: Qualifiers: Fever type: unspecified Qualified Code(s): R50.9 - Fever, unspecified Code(s): R50.9 - Fever, unspecified Status: Acute Assessment and Plan: Improved with cefepime and vancomycin. Source is not entirely clear but cultures are still pending. Possibly respiratory although chest x-rays have been negative. (2) Respiratory failure: Qualifiers: Chronicity: chronic Respiratory failure complication: hypercapnia Qualified Code(s): J96.12 - Chronic respiratory failure with hypercapnia Code(s): J96.90 - Respiratory failure, unspecified, unspecified whether with hypoxia or hypercapnia Status: Chronic Assessment and Plan: Tracheostomy placed 4 days ago and working well. Patient still too weak to be completely off ventilator but has been on pressure support for 10-11 hours per day. 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 Stools actually seemed to be more frequent than they were last week. I discussed diverting colostomy with Dr. Peacock. I also talked with patient's daughter about this. He is nearly 5 weeks from his original surgery. The perianal wound will not heal as long as stool continues to contaminated it several times a day. After discussion, plan to proceed with laparotomy and creation end descending colostomy tomorrow afternoon. Will stop Lovenox therapeutic dose now. Explained to patient's daughter that if abdomen is extremely hostile with severely high risk of enterotomy in bleeding, I may not be able to perform the colostomy. If adhesions are reasonable, I may be able to find the small intestinal injury associated with the enterocutaneous fistula and repair that. In that case as well, may go ahead and place gastrostomy tube if have access to the stomach without significantly increasing the length of the incision. Will have enterostomal therapy nurses marked patient for left lower quadrant colostomy site. 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 Small area of collection on CT scan yesterday unchanged from previous CT. May remove an EC fistula drain at the time of surgery. (5) Atrial fibrillation with rapid ventricular response: Code(s): I48.91 - Unspecified atrial fibrillation Status: Acute Assessment and Plan: On therapeutic dose of Lovenox. Will stop this now prior to surgery and restart once safe to administer postop. (6) Protein-calorie malnutrition, severe: Code(s): E43 - Unspecified severe protein-calorie malnutrition Status: Acute Assessment and Plan: Continue TPN. Will check triglyceride level as requested per dietitian. Subjective Subjective Date/Time Seen: 09/03/23 11:11 Patient reports: no new complaints, pain is less (Denies abdominal pain), bowel movement and afebrile Interval history: Remains on ventilator support at night but breathing on 8 cm peep all day. Tracheostomy in place and working without problems. Fevers have resolved after starting cefepime and vancomycin. Review of Systems Review of Systems: ROS unobtainable: Yes unobtainable due to medical condition Exam Const: General: lethargic and tired appearing Orientation/consciousness: lethargic GI: Inspection: other (Gallbladder drain removed, no output EC F drain yesterday) GI Palp: Yes Firmness to palpation present (GI), Yes Tenderness to palpation present (GI) (Somewhat tender right upper and mid abdomen, pigtail RUQ just removed) and No Palpable mass present Auscultation: normal bowel sounds : Male General Exam: Yes hernia (Incision continues to heal well, hematoma stable) Penis: Yes normal penis Scrotum: edematous
--- NOTE | 2023-09-03 11:58 | PCNFU ---
Nutrition Follow-Up Complete: Swallowing Difficulties as related to mentation/risk of aspiration as evidenced by NPO. Goal: Meet estimated nutritional needs Patient will continue current goal. Pt current nutrition is TPN. Last recorded weight is 114.4 kg, up from 108 kg on admit. Bowel Motility: +BM reported 09/02 Labs Reviewed:TG 133, Glu 133, BUN 30, Na 135, Alb 2.8 Meds Noted:Clinimix E at 80 ml/hr with 250 ml of 20% Lipid Emulsion, Protonix, Synthroid. Skin: WNL Additional Notes: Patient remains on TPN at this time. TPN increased 09/02 to 80 ml/hr. Nutrition at this time, 1863 kcals (92% kcal needs) and 96 gms protein (99% protein needs). Last TG 127 ordered on 08/29-reordered, new lab today 09/03- TG 130 WNL. Per surgery notes, plans for surgery tomorrow laparotomy and colostomy. Agree with diet orders at this time. Will montior weight, labs, skin, meds, TPN every Saturday and Saturday.
--- NOTE | 2023-09-03 12:10 | PCWOUND ---
WOCN NOTE Received orders to leana patient for a descending colostomy. and daughter of the patient at the bedside for marking. Patient on a ventilator through a tracheostomy. Patient unable to cough for rectus muscle assessment, but was able to flex his abdominal muscles, so rectus muscle was felt. With the help of another FOOT ROENTGENOLOGIST, patient was put into a seated position to assess anatomy in the position. Patient placed back into supine position where a black X was placed in the upper part of the left side of the abdomen. A Tegaderm applied over the marking. All questions were answered for the and daughter. Will follow post operatively for ostomy teaching with family.
[2023-09-03 15:34] LABS: Triglycerides 122 mg/dL (<150)
[2023-09-03 15:46] LABS: INR 1.2; Prothrombin Time 16.4 Seconds (11.1-14.7)
[2023-09-03 15:48] LABS: Partial Thromboplastin Time 48.1 SECONDS (22.3-36.8)
--- NOTE | 2023-09-03 16:02 | PM.PNGS ---
Subjective Subjective Date/Time Seen: 09/03/23 16:02 Interval history: Patient is doing well trach is working. I can see down below I removed the sutures trach is now free to be exchanged if needed trach ties can be changed if needed please please please keep the trach ties very very tight no more than 2 finger should ever be able to fit beneath them. Objective Data Vital Signs Vital Signs: Vital Signs - 24 hr 09/02/23 17:10 09/02/23 18:00 09/02/23 18:00 Temperature 37.4 C Pulse Rate 101 H 94 92 Respiratory Rate 20 Blood Pressure 108/76 Pulse Oximetry 96 94 Oxygen Delivery Mechanical Ventilation Oxygen Flow Rate Fraction of Inspired Oxygen 30 09/02/23 20:00 09/02/23 20:00 09/02/23 20:00 Temperature Pulse Rate 92 Respiratory Rate Blood Pressure Pulse Oximetry 95 Oxygen Delivery Mechanical Ventilation Oxygen Flow Rate Fraction of Inspired Oxygen 30 30 09/02/23 20:00 09/02/23 22:00 09/02/23 22:00 Temperature 37.6 C 37.4 C Pulse Rate 92 82 82 Respiratory Rate 25 H 23 H Blood Pressure 86/70 L 90/69 L Pulse Oximetry 93 94 Oxygen Delivery Oxygen Flow Rate Fraction of Inspired Oxygen 09/02/23 19:50 09/02/23 22:41 09/03/23 00:00 Temperature Pulse Rate 99 73 91 Respiratory Rate 33 H Blood Pressure Pulse Oximetry 95 90 Oxygen Delivery Mechanical Ventilation Nasal Cannula Oxygen Flow Rate 6 Fraction of Inspired Oxygen 30 09/03/23 00:00 09/03/23 00:00 09/03/23 00:00 Temperature 37.4 C Pulse Rate 91 Respiratory Rate 16 Blood Pressure 122/86 Pulse Oximetry 97 92 Oxygen Delivery Mechanical Ventilation Oxygen Flow Rate Fraction of Inspired Oxygen 30 30 09/02/23 23:03 09/03/23 02:00 09/03/23 02:00 Temperature 37.1 C Pulse Rate 94 86 86 Respiratory Rate 16 Blood Pressure 119/73 Pulse Oximetry 97 91 Oxygen Delivery Mechanical Ventilation Oxygen Flow Rate Fraction of Inspired Oxygen 30 09/03/23 03:45 09/03/23 03:52 09/03/23 02:05 Temperature Pulse Rate 85 Respiratory Rate Blood Pressure Pulse Oximetry 92 97 Oxygen Delivery Mechanical Ventilation Mechanical Ventilation Oxygen Flow Rate Fraction of Inspired Oxygen 30 30 30 09/03/23 05:20 09/03/23 04:00 09/03/23 06:00 Temperature Pulse Rate 82 85 83 Respiratory Rate Blood Pressure Pulse Oximetry 95 Oxygen Delivery Mechanical Ventilation Oxygen Flow Rate Fraction of Inspired Oxygen 30 09/03/23 04:00 09/03/23 06:00 09/03/23 08:31 Temperature 37.0 C 37.2 C Pulse Rate 85 83 92 Respiratory Rate 21 H 20 Blood Pressure 101/74 110/70 Pulse Oximetry 90 92 91 Oxygen Delivery Mechanical Ventilation Oxygen Flow Rate Fraction of Inspired Oxygen 30 09/03/23 08:57 09/03/23 10:00 09/03/23 11:16 Temperature 36.8 C Pulse Rate 84 60 91 Respiratory Rate 20 Blood Pressure 179/68 H Pulse Oximetry 92 97 94 Oxygen Delivery Mechanical Ventilation Mechanical Ventilation Oxygen Flow Rate Fraction of Inspired Oxygen 30 30 09/03/23 08:00 09/03/23 12:00 09/03/23 08:00 Temperature 37.2 C Pulse Rate 90 86 Respiratory Rate 20 Blood Pressure 113/76 Pulse Oximetry 94 94 Oxygen Delivery Mechanical Ventilation Oxygen Flow Rate Fraction of Inspired Oxygen 30 09/03/23 08:00 09/03/23 10:00 09/03/23 12:00 Temperature Pulse Rate 86 Respiratory Rate Blood Pressure Pulse Oximetry 94 Oxygen Delivery Mechanical Ventilation Oxygen Flow Rate Fraction of Inspired Oxygen 30 30 09/03/23 12:00 09/03/23 12:00 09/03/23 13:00 Temperature Pulse Rate 98 89 Respiratory Rate Blood Pressure Pulse Oximetry 94 Oxygen Delivery Mechanical Ventilation Oxygen Flow Rate Fraction of Inspired Oxygen 30 30 09/03/23 14:00 Temperature 37.2 C Pulse Rate 85 Respiratory Rate 18 Blood Pressure 116/76 Pulse Oximetry 94 Oxygen Delivery Oxygen Heri
[2023-09-03] MEDS: AMINO ACIDS 5%/D15W/E-LYTES/CA 2,000 ML with MULTIVITAMINS-12 INJ VIAL 1 2.5 ML, MULTIV... 70 ML IV CONT (16:49)
[2023-09-03] MEDS: FAT EMULSIONS IV 20% 250 ML 20.83 ML IVPB (16:51)
[2023-09-03 18:07] LABS: Glucose Point of Care 141 mg/dl (65-105)
--- NOTE | 2023-09-03 18:08 | PM.IMPN ---
Progress Note: A&P Assessment and Plan (1) Respiratory failure: Qualifiers: Chronicity: chronic Respiratory failure complication: hypercapnia Qualified Code(s): J96.12 - Chronic respiratory failure with hypercapnia Code(s): J96.90 - Respiratory failure, unspecified, unspecified whether with hypoxia or hypercapnia Status: Chronic Assessment and Plan: Patient had acute respiratory failure earlier felt to be multifactorial due to fluid overload, possible aspiration pneumonia vs atelectasis. CXR 08/09 showed mild pulm edema, small left pleural effusion, right opacities worsening concerning for pneumonia--CT less concerning for PNA. MRSA swab negative 08/09: Linezolid added to cover Enterococcus species growing from cholecystostomy tube Lasix then Bumex was given with improved resp status. Weaned to room air. He remained on IV Bumex. ------ On the morning of 08/15, patient developed acute respiratory distress. ABG 7.37/62/58 so BiPAP ordered Repeat ABG 7.15/101/91 so patient intubated. CXR reviewed showing diffuse lung disease c/w edema vs PNA vs atelectasis Cumulative fluid balance at that time was +2.7L with excellent UOP past few days prior Consider pulmonary edema vs ARDS vs aspiration but NPO so felt less likely. Good UOP with Bumex but UOP dropping off He remains on mechanical ventilation; Trach placed 08/30 CXR showing clear lungs Was having excessive secretions and fevers. WBC higher again today. CXR clear. Consider trachitis - abx resumed 09/01. Repeat Cultures NGTD. Appreciate bone crusher and ENT input. (2) Sepsis: Qualifiers: Sepsis type: sepsis due to unspecified organism Sepsis acute organ dysfunction status: with acute organ dysfunction Severe sepsis acute organ dysfunction type: acute renal failure Acute renal failure type: unspecified Severe sepsis shock status: without septic shock Qualified Code(s): A41.9 - Sepsis, unspecified organism; R65.20 - Severe sepsis without septic shock; N17.9 - Acute kidney failure, unspecified Code(s): A41.9 - Sepsis, unspecified organism Status: Acute Assessment and Plan: Currently being treated for cholecystitis + pelvic abscesses UCx 08/05, 08/06, 08/16 negative GB Cx 08/06 growing enterococcus but unable to perform sensitivities Abscess Cx 08/06 Prevotella that is beta-lactamase positive BCx 08/06 negative. MRSA nasal swab 08/09 negative BCx 08/10 negative. Fungal cx 08/11 pending (?) CT A/P 08/13 showing multiple intraperitoneal abscesses similar to 08/09 with worsening mass involving the right inguinal canal and right scrotum. 08/14: Multiple Abd drains placed with culture growing H. parainfluenza and prevotella BCx 08/[address] A/P 08/18 slight increase in fluid collection adjacent to LLQ pigtail drain measuring 3 cm, other fluid collections are either stable or slightly smaller in size, stable right groin infected hematoma, cystitis versus bladder wall thickening, Weathers catheter in place but balloon not visualized and mild fecal impaction. Tx with meropenem, linezolid. Micafungin added 08/11 he completed a course of linezolid stopped 08/19. meropenem changed to Cefepime and Flagyl. Flagyl and Cefepime stopped 08/23 Micafungin stopped 08/25 after 14 days course Zosyn started 08/23 through 08/26 WBC remaining normal and fevers resolved now All abx stopped on 08/26 -------- As above. Abx resumed 09/01 CT A/P 09/02 showing: An adjacent abscess to the drain measuring approximately 2.8 x 2.2 cm is not significantly changed (image 153). The previously described midline supraumbilical intra-abdominal abscess is not significantly changed measuring 3.2 x 1.5 cm (image 113). The hematoma of the right inguinal canal is not significantly changed Repeat cultures NGTD. Appreciate GenSurg input. (3) Cholecystitis: Code(s): K81.9 - Cholecystitis, unspecified Status: Acute Assessment and Plan: Cholecystostom
[2023-09-04] VITALS (24 sets, daily range): BP systolic 93–129; BP diastolic 64–82; PULSE 70–132; RESP 15–29; TEMP 37.2–37.9; O2SAT 91–100
[2023-09-04] MEDS: VANCOMYCIN 1,500 MG/NS 500 ML 1,500 MG/500 ML BAG 250 MG IVPB ×2 (00:13→19:54)
[2023-09-04 00:20] LABS: Glucose Point of Care 136 mg/dl (65-105)
[2023-09-04] MEDS: CENTRAL LINE FLUSH 10 ML IV PUSH ×3 (04:45→22:28)
[2023-09-04] MEDS: LEVOTHYROXINE SODIUM INJ 100 MCG/5 ML VIAL 50 MCG IV PUSH (04:45)
[2023-09-04 05:17] LABS: Basophils Absolute Auto 0.1 K/mm3 (0.0-0.1); Basophils Percent Auto 0.8 % (0.2-1.2); Eosinophils Absolute Auto 0.5 K/mm3 (0-0.3); Eosinophils Percent Auto 6.4 % (0-4.4); Hematocrit 29.2 % (42.0-52.0); Immature Granulocyte Absolute 0.29 K/mm3 (0.00-0.031); Immature Granulocyte Percent A 3.5 % (0-0.5); Lymphocytes Absolute Auto 1.45 K/mm3 (0.9-3.2); Lymphocytes Percent Auto 17.4 % (18.3-44.2); Mean Corpuscular HGB Conc 30.8 g/dl (32-36); Mean Corpuscular Hemoglobin 30.7 pg (26-34); Mean Corpuscular Volume 99.7 fl (80-100); Mean Platelet Volume 10.7 fl (7.4-10.4); Monocytes Absolute Auto 0.5 K/mm3 (0.1-0.6); Neutrophils Absolute Auto 5.5 K/mm3 (1.3-6.7); Neutrophils Percent Auto 65.9 % (45.5-73.1); Platelet Count Result 363 k/mm3 (150-375); Red Blood Count 2.93 M/mm3 (4.6-6.20); Red Cell Distribution Width 14.6 % (11.5-14.5); White Blood Count 8.3 K/mm3 (4.5-10.0)
[2023-09-04 05:28] LABS: Alanine Aminotransferase 38 U/L (6-50); Albumin Level 2.8 g/dL (3.5-5.1); Alkaline Phosphatase 199 U/L (38-126); Anion Gap 5 mmol/L (8-16); Aspartate Amino Transferase 25 U/L (17-59); Bilirubin,Total 0.7 mg/dL (0.2-1.3); Blood Urea Nitrogen 26 mg/dL (9-20); Calcium 8.3 mg/dL (8.4-10.2); Carbon Dioxide 25 mmol/L (22-30); Chloride 106 mmol/L (98-107); Estimated CRCL calculation 71 ml/min; Estimated Glomerular Filt Rate > 60; Glucose 127 mg/dL (65-110); Magnesium 2.3 mg/dL (1.6-2.3); Phosphorus 3.7 mg/dL (2.5-4.5); Sodium 136 mmol/L (137-145)
[2023-09-04] MEDS: CEFEPIME 2 GM/NS 50 ML 2 GM/50 ML BAG IVPB ×2 (08:46→22:28)
[2023-09-04] MEDS: PANTOPRAZOLE SODIUM IV 40 MG VIAL IV PUSH (08:47)
[2023-09-04] MEDS: COLLAGENASE OINT 30 GM TUBE 1 APPLIC TOPICAL (08:48)
--- NOTE | 2023-09-04 08:50 | WPDINTPN ---
Progress Note: A&P Assessment and Plan (1) Acute respiratory failure: Qualifiers: Respiratory failure complication: hypoxia and hypercapnia Qualified Code(s): J96.01 - Acute respiratory failure with hypoxia; J96.02 - Acute respiratory failure with hypercapnia Code(s): J96.00 - Acute respiratory failure, unspecified whether with hypoxia or hypercapnia Status: Acute Assessment and Plan: Acute hypoxic and hypercarbic respiratory failure. Chest x-ray shows diffuse lung disease most likely which improved with diuretics. ABG chest x-ray and ventilator settings reviewed this morning 08/17 Patient placed on PSV but failed quickly due to high RSBI. PSV increased to 15/8 to get adequate RSBI. Patient tolerated that for many hours It appears the patient is severely deconditioned and weak 08/18 will re try PSV again today. Continue Bumex to manage the fluid balance 08/19 patient placed on PSV again today. Patient either had low rate on high pressure support or low tidal volume lower pressure support. I was able to get adequate RSBI on 06/30. This is better than what he has done in the past but still good enough for extubation. I will continue pressure support ventilation as tolerated through the day and try to wean down pressure support. 08/20 patient placed on PSV again and can only get adequate RSBI on 06/30. If extubated patient will need and NIPPV which because of his deconditioning and fluctuating mental status may not be good option. Will continue PSV as tolerated today Antibiotics as below Low tidal volume management -08/21, patient placed on pressure support ventilation 08/27, respiratory rate was low with decreased tidal volumes, placed on ASV mode, patient's respiratory rate remained low patient was placed back on CMV mode, will try again today -08/22: Patient tolerated PSV 10/5 for approximately 6-7 hours after which the tidal volumes were low, patient seemed to be tired and weak and was placed on CMV mode 08/23: Tolerated PSV 8/5 for approximately 3 hours, and had to be placed on CMV mode as dropped his tidal volumes and was tachypneic 08/24: Patient tolerated PSV 10/5 for few hours and had increased work of breathing and decrease tidal volumes so was placed back on CMV mode -08/25: Tolerated pressure support ventilation 10/5 all day long and was switched to ASV overnight -08/26: Tolerated PSV 10/5 for a few hours and had to be placed back on CMV mode of ventilation -08/27: Discuss with family, surgery, does not seem that the patient is going to come off the ventilator since he is not tolerating appropriate spontaneous breathing trial. Discussed with them regarding tracheostomy to which the family and the surgeon are agreeable. ENT has been consulted and tracheostomy scheduled for 08/30 Continue Bumex as needed to keep balance even 08/28 did not tolerate PSV for prolonged period of time 08/30 patient now status post tracheostomy. 08/31 patient placed on PSV but only tolerated for some time as patient kept on going into apnea ventilation and switching SIMV mode. 09/02 tolerated PSV till 7:00 p.m. with intermittent low respirator alarms 09/03 patient was trialed on PSV but patient kept on going into apnea ventilation and low tidal volume. he was switched back to CMV 09/04 patient is scheduled for surgery this afternoon. Will hold trial at this time (2) Sepsis: Qualifiers: Sepsis type: sepsis due to unspecified organism Sepsis acute organ dysfunction status: with acute organ dysfunction Severe sepsis acute organ dysfunction type: acute renal failure Acute renal failure type: unspecified Severe sepsis shock status: without septic shock Qualified Code(s): A41.9 - Sepsis, unspecified organism; R65.20 - Severe sepsis without septic shock; N17.9 - Acute kidney failure, unspecified Code(s): A41.9 - Sepsis, unspecified organism Status: Acute Assessment and Plan: Secondary to peritonitis. Patient a
--- NOTE | 2023-09-04 11:05 | PCFNICU ---
ICU Rounding Note: Pt current nutrition is TPN. Last recorded weight is 115 kg, up from 108 kg on admit Bowel Motility:+BM reported 09/04 Labs Reviewed:Glu 127, Na 136, BUN 26, Alb 2.8 Meds Noted:Vancomycin,Synthroid, Clinimix E at 80 ml/hr with 250 ml of 20% Lipid Emulsion. Skin:WNL Additional Notes: Patient current with Trach. Plans for OR today for colostomy. TPN remains for nutrition. Following daily in ICU rounds. Will monitor weight, labs, skin, meds, TPN every Saturday and Saturday. .
[2023-09-04 12:10] LABS: Glucose Point of Care 156 mg/dl (65-105)
--- NOTE | 2023-09-04 12:12 | WPDANESEPPF ---
Anes - Initial Pre Proc Eval Procedure: Operation Date: 08/02/23 12:00 Proposed Procedures p Open Right Inguinal Hernia Repair with Mesh - Jaxon Armijo MD Operation Date: 08/30/23 08:00 Proposed Procedures p Tracheostomy - Gus Mendez MD Operation Date: 09/04/23 12:00 Proposed Procedures p Exploratory Laparotomy, Creation End Descending Colostomy, Possible Placement Gastrostomy Tube - Jaxon Armijo MD Date/Time: 09/04/23 12:12 Surgeon: Jaxon Armijo MD Pre Op Diagnosis: right inguinal hernia Patient Data Age: 83 Gender: M Height: 1.83 m Weight: 115 kg Last Vital Signs Temp 99.2 F 09/04/23 10:00 Pulse 88 09/04/23 10:00 Resp 20 09/04/23 10:00 BP 95/72 L 09/04/23 10:00 Pulse Ox 92 09/04/23 11:54 O2 Del Method Mechanical Ventilation 09/04/23 11:54 O2 Flow Rate 6 09/02/23 22:41 FiO2 35 09/04/23 11:54 Allergies Allergy/AdvReac Type Severity Reaction Status Date / Time benazepril Allergy Unknown Unknown - Verified 08/02/23 10:15 PT UNABLE TO RECALL Enpiduu-MZZ-YwS Reductase Allergy Unknown Joint Pain Verified 08/02/23 10:15 Inhibitor & MUSCLE [Cyslezm-Wug-Dvj Reductase WEAKNESS Inhibitor] halobetasol AdvReac Rash Verified 08/02/23 10:15 Home Medications Medication Instructions Recorded Confirmed Type amlodipine 10 mg tablet 10 mg PO DAILY 05/15/22 08/02/23 History aspirin 81 mg chewable tablet 2 tablet PO DAILY 05/15/22 08/02/23 History loratadine 10 mg tablet (Claritin) 10 mg PO DAILY 05/15/22 08/02/23 History losartan 25 mg tablet 25 mg PO DAILY 05/15/22 08/02/23 History levothyroxine 100 mcg tablet 100 mcg PO DAILY #90 tabs 06/10/23 08/02/23 Rx coenzyme Q10 30 mg capsule (Co 30 mg PO DAILY 06/11/23 08/02/23 History Q-10) omega 9-zsl-iap-fish oil 60 mg-90 1 cap PO DAILY 06/11/23 08/02/23 History mg-500 mg capsule (Fish Oil) rivaroxaban 20 mg tablet (Xarelto) 20 mg PO QPM 07/30/23 08/02/23 History oxycodone-acetaminophen 5 mg-325 0.5 - 1 tablet PO Q6H PRN pain #10 08/02/23 Rx mg tablet tabs Laboratory Tests 09/03/23 09/03/23 09/03/23 15:14 15:16 18:03 WBC RBC Hgb Hct MCV MCH MCHC RDW Plt Count MPV Immature Gran % (Auto) Neut % (Auto) Lymph % (Auto) [place] % (Auto) Eos % (Auto) Baso % (Auto) Lymph # (Auto) [place] # (Auto) Eos # (Auto) Baso # (Auto) Abs Immat Gran (auto) Absolute Neuts (auto) Absolute Nucleated RBC Nucleated RBC % PT 16.4 H Seconds (11.1-14.7) INR 1.2 APTT 48.1 H SECONDS (22.3-36.8) Sodium Potassium Chloride Carbon Dioxide Anion Gap BUN Creatinine Estim Creat Clear Calc Estimated GFR Glucose POC Capillary Glucose 141 H mg/dl (65-105) Calcium Phosphorus Magnesium Total Bilirubin AST ALT Alkaline Phosphatase Total Protein Albumin Triglycerides 122 mg/dL (<150) Blood Type A Negative Antibody Screen Negative 09/04/23 09/04/23 09/04/23 00:10 04:44 11:49 WBC 8.3 K/mm3 (4.5-10.0) RBC 2.93 L M/mm3 (4.6-6.20) Hgb 9.0 L g/dL (14.0-18.0) Hct 29.2 L % (42.0-52.0) MCV 99.7 D fl (80-100) MCH 30.7 pg (26-34) MCHC 30.8 L g/dl (32-36) RDW 14.6 H % (11.5-14.5) Plt Count 363 k/mm3 (150-375) MPV 10.7 H fl (7.4-10.4) Immature Gran % (Auto) 3.5 H % (0-0.5) Neut % (Auto) 65.9 %
--- NOTE | 2023-09-04 13:23 | WPDHPUPDATE1 ---
History and Physical Update Update Date/Time: 09/04/23 13:23 History and Physical has been reviewed, including an updated exam of the patient. There are NO changes in the patient's condition. Risks, benefits, and alternatives have been discussed and questions answered. Patient agrees to proceed with procedure.
--- NOTE | 2023-09-04 13:38 | PC.NURSE ---
Pt taken to OR for surgery, accompanied by 2 RNs, 1 RT and OR staff. No complications on transfer. Report given to CAROLINA Pina.
[2023-09-04] MEDS: ceFAZolin 2 GM/D5W 50 ML 2 GM/50 ML BAG IVPB (13:45)
[2023-09-04 13:51] LABS: Vancomycin Trough 18.7 ug/mL (10.0-20.0)
--- NOTE | 2023-09-04 16:38 | SUR.OPER ---
1 unit PRBC ordered and hung at 1615 per DIRECTOR OF MATERIALS MANAGEMENT
--- NOTE | 2023-09-04 16:55 | SUR.OPER ---
2nd unit of PRBC ordered and started at 1650 per ECONOMICS LECTURER
--- NOTE | 2023-09-04 18:28 | PC.NURSE ---
Preliminary report received from OR. Pt received 2 units of PRBCs. Will continue to monitor
--- NOTE | 2023-09-04 19:17 | W.PM.PROC2 ---
Procedure Note - Detailed Date of Procedure 09/04/23 Pre-op Diagnosis Rectal fistula with open perianal wound, history multiple abdominal abscesses, enterocutaneous fistula Post-op Diagnosis Same Procedure Performed Extensive (2 1/2 hrs) adhesiolysis, sigmoidectomy with end descending colostomy and Willy procedure Surgeon Jaxon Armijo MD [employer] Brian Jackson, [facility] Anesthesia General Indications Patient is an 83-year-old man who about 5 weeks ago had a right inguinal hernia repair. The repair was difficult as probably 2/3 of the patient's intestine had been living in his scrotum. After the hernia was repaired, he had some abdominal pain and evidence of an ileus. Eventually he was found to have multiple abdominal abscesses and enterocutaneous fistula. These had been drained percutaneously with CT guidance. Patient has been unable to come off a ventilator and last week had a tracheostomy placed. Also noticed about 10 days ago was that he had a large open wound just posterior to his rectum. This was being bathed in stool and would not heal until diversion was performed. He is in much improved status in regard to his nutrition and his abdominal infection. He is taken back to surgery now for adhesiolysis and creation of a diverting end descending colostomy with Willy procedure. If feasible, a gastrostomy tube will be placed as well. Findings Patient had enormous number of adhesions which was somewhat expected. Fortunately, even though the adhesions were very numerous, they were able to be taken down without causing injury to the bowel. This was a very long and difficult adhesiolysis taking great care not to cause any enterotomies. No enterotomies were made. In the abdomen, there were numerous burned-out small abscesses that had pockets with yellow soft material in them but no real purulent fluid. The drain to the enterocutaneous fistula was left in during the surgery so that I could track it to the fistula site. I did that and found no enterotomy whatsoever in the pelvis where the drain had been placed. There was a small burned out abscess similar to the others described. All abscesses were taken down and full small intestinal adhesiolysis was done in the mid to lower abdomen. Some small bowel was left alone in the upper abdomen. The creation of the colostomy was difficult. The sigmoid colon had doubled back on itself and essentially reattached to itself. It also had some necrotic omentum attached to its side. The sigmoid colon really was not feasible to be used as a colostomy. It was resected and sent as a specimen. And descending colostomy and Willy procedure were performed. Due to the significant amount of inflammation, it was very difficult to find the ureter. This caused quite a bit of bleeding in the retroperitoneum. Eventually the ureter was identified and carefully avoided. There was still a lot of oozing of blood during the surgery. 2 units of packed cells were administered during the surgery. Patient was not hemodynamically unstable at any point during the surgery. Description of Procedure Patient was taken from the intensive care unit directly to the operating room. His airway was managed in ventilator managed by the anesthesia department. Weathers catheter was left in place. The left lower quadrant pigtail catheter was cut about an inch from the skin and the skin sutures were removed. The entire abdomen was prepped and draped. A midline abdominal incision was made. This started just above the umbilicus and proceeded down to the lower abdomen. I had to later extend this incision farther towards the pubis. We dissected down through the midline fascia and carefully entered the abdominal cavity. With a finger in the abdomen I then opened the remainder of the fascia the entire length of the incision. We then began a very long adhesiolysis. The abdominal wall adhesions were probably the most difficult. I was on the patient's ri
[2023-09-04] MEDS: AMINO ACIDS 5%/D15W/E-LYTES/CA 2,000 ML with MULTIVITAMINS-12 INJ VIAL 1 2.5 ML, MULTIV... 70 ML IV CONT (19:38)
--- NOTE | 2023-09-04 19:39 | PC.NURSE ---
Pt arrived to unit from OR at 1900. Bedside report received from OR nurse. Right nare NG in place. left mid quadrant colostomy and midline incision with dry dressing intact, no shadowing noted. Will continue to monitor
--- NOTE | 2023-09-04 19:42 | PC.NURSE ---
Night RN present at bedside for OR report. Given full report. Updated on pt staus.
[2023-09-04] MEDS: FAT EMULSIONS IV 20% 250 ML 20.83 ML IVPB (19:46)
[2023-09-04] MEDS: MINERAL OIL/WHITE PETROLATUM OINTMENT 1 APPLIC EACH EYE (20:01)
[2023-09-04] MEDS: LACTATED RINGERS 1,000 ML 999 ML IV CONT (20:22)
[2023-09-04 20:44] LABS: Glucose Point of Care 155 mg/dl (65-105)
[2023-09-04 20:47] LABS: Basophils Absolute Auto 0.1 K/mm3 (0.0-0.1); Basophils Percent Auto 0.5 % (0.2-1.2); Eosinophils Absolute Auto 0.1 K/mm3 (0-0.3); Eosinophils Percent Auto 0.6 % (0-4.4); Hematocrit 35.2 % (42.0-52.0); Hemoglobin 10.9 g/dL (14.0-18.0); Immature Granulocyte Absolute 0.28 K/mm3 (0.00-0.031); Immature Granulocyte Percent A 1.9 % (0-0.5); Lymphocytes Absolute Auto 0.87 K/mm3 (0.9-3.2); Lymphocytes Percent Auto 5.8 % (18.3-44.2); Mean Corpuscular Hemoglobin 30.4 pg (26-34); Mean Corpuscular Volume 98.3 fl (80-100); Mean Platelet Volume 10.1 fl (7.4-10.4); Monocytes Absolute Auto 0.7 K/mm3 (0.1-0.6); Monocytes Percent Auto 4.7 % (2.6-8.5); Neutrophils Absolute Auto 13.1 K/mm3 (1.3-6.7); Neutrophils Percent Auto 86.5 % (45.5-73.1); Platelet Count Result 354 k/mm3 (150-375); Red Blood Count 3.58 M/mm3 (4.6-6.20); Red Cell Distribution Width 14.6 % (11.5-14.5); White Blood Count 15.1 K/mm3 (4.5-10.0)
[2023-09-04 20:56] LABS: Alanine Aminotransferase 34 U/L (6-50); Albumin Level 2.4 g/dL (3.5-5.1); Alkaline Phosphatase 174 U/L (38-126); Anion Gap 3 mmol/L (8-16); Aspartate Amino Transferase 30 U/L (17-59); Bilirubin,Total 1.1 mg/dL (0.2-1.3); Blood Urea Nitrogen 26 mg/dL (9-20); Calcium 7.8 mg/dL (8.4-10.2); Carbon Dioxide 22 mmol/L (22-30); Chloride 109 mmol/L (98-107); Estimated CRCL calculation 71 ml/min; Estimated Glomerular Filt Rate > 60; Glucose 171 mg/dL (65-110); Potassium 4.5 mmol/L (3.4-5.0); Sodium 134 mmol/L (137-145)
[2023-09-04 23:30] LABS: Glucose Point of Care 173 mg/dl (65-105)
[2023-09-04] MEDS: HYDROmorphone HCL INJ (*CRX) 1 MG/ML SYR 0.5 MG IV PUSH (23:31)
[2023-09-05] VITALS (32 sets, daily range): BP systolic 86–124; BP diastolic 52–82; PULSE 87–124; RESP 22–35; TEMP 37.8–38.5; O2SAT 92–100
[2023-09-05] MEDS: ACETAMINOPHEN ELIXIR 325 MG/10.15 ML UDC 650 MG FEED TUBE ×3 (00:36→23:42)
[2023-09-05] MEDS: HYDROmorphone HCL INJ (*CRX) 1 MG/ML SYR 0.5 MG IV PUSH ×2 (03:26→11:00)
[2023-09-05] MEDS: CENTRAL LINE FLUSH 10 ML IV PUSH ×3 (05:55→20:39)
[2023-09-05] MEDS: VANCOMYCIN 1,500 MG/NS 500 ML 1,500 MG/500 ML BAG 250 MG IVPB ×2 (05:56→17:51)
[2023-09-05] MEDS: LEVOTHYROXINE SODIUM INJ 100 MCG/5 ML VIAL 50 MCG IV PUSH (05:58)
[2023-09-05 06:56] LABS: Basophils Absolute Auto 0.1 K/mm3 (0.0-0.1); Basophils Percent Auto 0.4 % (0.2-1.2); Eosinophils Absolute Auto 0.1 K/mm3 (0-0.3); Eosinophils Percent Auto 0.3 % (0-4.4); Hematocrit 36.5 % (42.0-52.0); Hemoglobin 11.6 g/dL (14.0-18.0); Immature Granulocyte Percent A 1.9 % (0-0.5); Lymphocytes Absolute Auto 1.26 K/mm3 (0.9-3.2); Lymphocytes Percent Auto 8.1 % (18.3-44.2); Mean Corpuscular HGB Conc 31.8 g/dl (32-36); Mean Corpuscular Hemoglobin 31.1 pg (26-34); Mean Corpuscular Volume 97.9 fl (80-100); Mean Platelet Volume 10.3 fl (7.4-10.4); Monocytes Percent Auto 6.4 % (2.6-8.5); Neutrophils Percent Auto 82.9 % (45.5-73.1); Platelet Count Result 353 k/mm3 (150-375); Red Blood Count 3.73 M/mm3 (4.6-6.20); Red Cell Distribution Width 14.9 % (11.5-14.5); White Blood Count 15.6 K/mm3 (4.5-10.0)
[2023-09-05 07:10] LABS: Alanine Aminotransferase 32 U/L (6-50); Albumin Level 2.4 g/dL (3.5-5.1); Alkaline Phosphatase 160 U/L (38-126); Anion Gap 4 mmol/L (8-16); Aspartate Amino Transferase 31 U/L (17-59); Bilirubin,Total 0.6 mg/dL (0.2-1.3); Blood Urea Nitrogen 33 mg/dL (9-20); Calcium 7.7 mg/dL (8.4-10.2); Carbon Dioxide 22 mmol/L (22-30); Chloride 108 mmol/L (98-107); Estimated CRCL calculation 60 ml/min; Estimated Glomerular Filt Rate > 60; Glucose 198 mg/dL (65-110); Magnesium 2.1 mg/dL (1.6-2.3); Phosphorus 4.1 mg/dL (2.5-4.5); Potassium 4.8 mmol/L (3.4-5.0); Sodium 134 mmol/L (137-145)
--- NOTE | 2023-09-05 08:03 | WPDANESPN ---
Anes - Prog Note Post-Op Date/Time: 09/05/23 08:03 Cardiovascular status: other (soft BP. asymptomatic) Respiratory status: normal Airway patency: baseline Mental status: baseline Post-Op hydration status: normal Vital Signs: Last Vital Signs Temp 38.2 C H 09/05/23 07:00 Pulse 107 H 09/05/23 07:00 Resp 27 H 09/05/23 07:00 BP 106/64 09/05/23 07:00 Pulse Ox 100 09/05/23 07:00 O2 Del Method Mechanical Ventilation 09/05/23 05:05 O2 Flow Rate 6 09/02/23 22:41 FiO2 35 09/05/23 05:05 Pain Score (VAS): Patient intubated and sedated I/O: Intake & Output 09/04/23 09/05/23 09/05/23 23:59 07:59 15:59 Intake Total 5725 120 Output Total 60 950 Balance 5665 -830 Laboratory Tests 09/05/23 06:48 09/05/23 06:48 09/03/23 09/04/23 09/04/23 15:14 11:49 13:22 WBC RBC Hgb Hct MCV MCH MCHC RDW Plt Count MPV Immature Gran % (Auto) Neut % (Auto) Lymph % (Auto) [place] % (Auto) Eos % (Auto) Baso % (Auto) Lymph # (Auto) [place] # (Auto) Eos # (Auto) Baso # (Auto) Abs Immat Gran (auto) Absolute Neuts (auto) Absolute Nucleated RBC Nucleated RBC % Sodium Potassium Chloride Carbon Dioxide Anion Gap BUN Creatinine Estim Creat Clear Calc Estimated GFR Glucose POC Capillary Glucose 156 H Calcium Phosphorus Magnesium Total Bilirubin AST ALT Alkaline Phosphatase Total Protein Albumin Vancomycin Trough 18.7 Blood Type A Negative Antibody Screen Negative Crossmatch See Detail 09/04/23 09/04/23 09/04/23 19:53 20:41 23:26 WBC 15.1 H RBC 3.58 L Hgb 10.9 L Hct 35.2 L MCV 98.3 MCH 30.4 MCHC 31.0 L RDW 14.6 H Plt Count 354 MPV 10.1 Immature Gran % (Auto) 1.9 H Neut % (Auto) 86.5 H Lymph % (Auto) 5.8 L [place] % (Auto) 4.7 Eos % (Auto) 0.6 Baso % (Auto) 0.5 Lymph # (Auto) 0.87 L [place] # (Auto) 0.7 H Eos # (Auto) 0.1 Baso # (Auto) 0.1 Abs Immat Gran (auto) 0.28 H Absolute Neuts (auto) 13.1 H Absolute Nucleated RBC 0.0 Nucleated RBC % 0.0 Sodium 134 L Potassium 4.5 Chloride 109 H Carbon Dioxide 22 Anion Gap 3 L BUN 26 H Creatinine 0.90 Estim Creat Clear Calc 71 Estimated GFR > 60 Glucose 171 H POC Capillary Glucose 155 H 173 H Calcium 7.8 L Phosphorus Magnesium 2.0 Total Bilirubin 1.1 AST 30 ALT 34 Alkaline Phosphatase 174 H Total Protein 6.0 L Albumin 2.4 L Vancomycin Trough Blood Type Antibody Screen Crossmatch 09/05/23 06:48 WBC 15.6 H RBC 3.73 L Hgb 11.6 L Hct 36.5 L MCV 97.9 MCH 31.1 MCHC 31.8 L RDW 14.9 H Plt Count 353 MPV 10.3 Immature Gran % (Auto) 1.9 H Neut % (Auto) 82.9 H Lymph % (Auto) 8.1 L [place] % (Auto) 6.4 Eos % (Auto) 0.3 Baso % (Auto) 0.4 Lymph # (Auto) 1.26 [place] # (Auto) 1.0 H Eos # (Auto) 0.1 Baso # (Auto) 0.1 Abs Immat Gran (auto) 0.30 H Absolute Neuts (auto) 13.0 H Absolute Nucleated RBC 0.0 Nucleated RBC % 0.0 Sodium 134 L Potassium 4.8 Chloride 108 H Carbon Dioxide 22 Anion Gap 4 L BUN 33 H Creatinine 1.10 Estim Creat Clear Calc 60 Estimated GFR > 60 Glucose 198 H POC Capillary Glucose Calcium 7.7 L Phosphorus 4.1 Magnesium 2.1 Total Bilirubin 0.6 AST 31 ALT 32 Alkaline Phosphatase 160 H Total Protein 6.0 L Albumin 2.4 L Vancomycin Trough Blood Type Antibody Screen Crossmatch Microbiology 09/01/23 09:31 Sputum Sputum Culture - Final Post-procedural complaints: none Patient Feedback: Patient satisfied with anesthetic care. Other Findings: Spoke with RN, states patient did well through the night.
[2023-09-05] MEDS: PANTOPRAZOLE SODIUM IV 40 MG VIAL IV PUSH (09:13)
[2023-09-05] MEDS: CEFEPIME 2 GM/NS 50 ML 2 GM/50 ML BAG IVPB ×2 (09:13→20:38)
[2023-09-05] MEDS: ENOXAPARIN 40 MG/0.4 ML SYRINGE SUB-Q (09:14)
[2023-09-05] MEDS: MINERAL OIL/WHITE PETROLATUM OINTMENT 1 APPLIC EACH EYE ×2 (09:15→20:38)
[2023-09-05] MEDS: COLLAGENASE OINT 30 GM TUBE 1 APPLIC TOPICAL (09:15)
[2023-09-05] MEDS: ASPIRIN 81 MG CHEWABLE TABLET 162 MG PO (09:15)
[2023-09-05] MEDS: SODIUM CHLORIDE 1 GM TABLET PO ×2 (09:19→17:51)
--- NOTE | 2023-09-05 10:58 | WPDINTPN ---
Progress Note: A&P Assessment and Plan (1) Acute respiratory failure: Qualifiers: Respiratory failure complication: hypoxia and hypercapnia Qualified Code(s): J96.01 - Acute respiratory failure with hypoxia; J96.02 - Acute respiratory failure with hypercapnia Code(s): J96.00 - Acute respiratory failure, unspecified whether with hypoxia or hypercapnia Status: Acute Assessment and Plan: Acute hypoxic and hypercarbic respiratory failure. Chest x-ray shows diffuse lung disease most likely which improved with diuretics. ABG chest x-ray and ventilator settings reviewed this morning 08/17 Patient placed on PSV but failed quickly due to high RSBI. PSV increased to 15/8 to get adequate RSBI. Patient tolerated that for many hours It appears the patient is severely deconditioned and weak 08/18 will re try PSV again today. Continue Bumex to manage the fluid balance 08/19 patient placed on PSV again today. Patient either had low rate on high pressure support or low tidal volume lower pressure support. I was able to get adequate RSBI on 06/30. This is better than what he has done in the past but still good enough for extubation. I will continue pressure support ventilation as tolerated through the day and try to wean down pressure support. 08/20 patient placed on PSV again and can only get adequate RSBI on 06/30. If extubated patient will need and NIPPV which because of his deconditioning and fluctuating mental status may not be good option. Will continue PSV as tolerated today Antibiotics as below Low tidal volume management -08/21, patient placed on pressure support ventilation 08/27, respiratory rate was low with decreased tidal volumes, placed on ASV mode, patient's respiratory rate remained low patient was placed back on CMV mode, will try again today -08/22: Patient tolerated PSV 10/5 for approximately 6-7 hours after which the tidal volumes were low, patient seemed to be tired and weak and was placed on CMV mode 08/23: Tolerated PSV 8/5 for approximately 3 hours, and had to be placed on CMV mode as dropped his tidal volumes and was tachypneic 08/24: Patient tolerated PSV 10/5 for few hours and had increased work of breathing and decrease tidal volumes so was placed back on CMV mode -08/25: Tolerated pressure support ventilation 10/5 all day long and was switched to ASV overnight -08/26: Tolerated PSV 10/5 for a few hours and had to be placed back on CMV mode of ventilation -08/27: Discuss with family, surgery, does not seem that the patient is going to come off the ventilator since he is not tolerating appropriate spontaneous breathing trial. Discussed with them regarding tracheostomy to which the family and the surgeon are agreeable. ENT has been consulted and tracheostomy scheduled for 08/30 Continue Bumex as needed to keep balance even 08/28 did not tolerate PSV for prolonged period of time 08/30 patient now status post tracheostomy. 08/31 patient placed on PSV but only tolerated for some time as patient kept on going into apnea ventilation and switching SIMV mode. 09/02 tolerated PSV till 7:00 p.m. with intermittent low respirator alarms 09/03 patient was trialed on PSV but patient kept on going into apnea ventilation and low tidal volume. he was switched back to CMV 09/05 will try PSV trial again today (2) Sepsis: Qualifiers: Acute renal failure type: unspecified Sepsis acute organ dysfunction status: with acute organ dysfunction Sepsis type: sepsis due to unspecified organism Severe sepsis acute organ dysfunction type: acute renal failure Severe sepsis shock status: without septic shock Qualified Code(s): A41.9 - Sepsis, unspecified organism; R65.20 - Severe sepsis without septic shock; N17.9 - Acute kidney failure, unspecified Code(s): A41.9 - Sepsis, unspecified organism Status: Acute Assessment and Plan: Secondary to peritonitis. Patient also appears to have consolidation of the lower lo
[2023-09-05 13:18] LABS: Triglycerides 143 mg/dL (<150)
--- NOTE | 2023-09-05 14:30 | PCFNICU ---
ICU Rounding Note: Pt current nutrition is TPN. Last recorded weight is 119.4 kg, up from 108 kg on admit. Bowel Motility:colostomy Labs Reviewed:BUN 33, Glu 198, Na 134, Alb 2.4. TG 143 today WNL. Meds Noted:Clinimix E at 80 ml/hr with 250 ml of 20% Lipid Emulsion, Protonix, Vancomycin. Skin: WNL Additional Notes: Trach placed on 08/30. Patient had colostomy placed 09/04. TPN continues at this time providing 1863 kcals/96 gms protein. When patient is medically able to start tube feedings recommend Vital AF 1.2 at 20 ml/hr. Following daily in ICU rounds. Will monitor weight, labs, skin, meds, TPN every Saturday and Saturday.
[2023-09-05] MEDS: MORPHINE SULFATE (*CRX) 2 MG/ML INJ IV PUSH ×3 (15:20→23:43)
[2023-09-05] MEDS: LACTATED RINGERS 500 ML 999 ML IV CONT (15:24)
[2023-09-05] MEDS: AMINO ACIDS 5%/D15W/E-LYTES/CA 2,000 ML with MULTIVITAMINS-12 INJ VIAL 1 2.5 ML, MULTIV... 70 ML IV CONT (16:37)
[2023-09-05] MEDS: FAT EMULSIONS IV 20% 250 ML 20.8 ML IVPB (16:39)
--- NOTE | 2023-09-05 18:04 | PM.PNGS ---
Progress Note: A&P Assessment and Plan (1) Fever: Qualifiers: Fever type: unspecified Qualified Code(s): R50.9 - Fever, unspecified Code(s): R50.9 - Fever, unspecified Status: Acute Assessment and Plan: Fever almost certainly due to atelectasis. 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 (2) S/P partial colectomy: Code(s): Z90.49 - Acquired absence of other specified parts of digestive tract Status: Acute Assessment and Plan: Doing okay postop day 2. 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 (4) Rectal fistula: Code(s): K60.4 - Rectal fistula Status: Acute Assessment and Plan: Mostly this is a large perianal wound posterior to the anus. Continue Santyl dressing changes daily and after bowel movement. Much more likely to heal now that fecal stream has been diverted. (5) Respiratory failure: Qualifiers: Chronicity: chronic Respiratory failure complication: hypercapnia Qualified Code(s): J96.12 - Chronic respiratory failure with hypercapnia Code(s): J96.90 - Respiratory failure, unspecified, unspecified whether with hypoxia or hypercapnia Status: Chronic Assessment and Plan: Remains on ventilator with tracheostomy. Tires when breathing on his own. Unlikely to be improving until he is farther along with his surgical recovery. (6) Atrial fibrillation with rapid ventricular response: Code(s): I48.91 - Unspecified atrial fibrillation Status: Acute Assessment and Plan: Full anticoagulation has been held. He is on low-dose Lovenox for now. His surgery was pretty bloody and would like to hold off on full anticoagulation for a couple of days. (7) 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 Status: Resolved Assessment and Plan: All the mid and lower abdominal small bowel was carefully evaluated after adhesiolysis. I followed the pigtail catheter that was draining enteric content down to the area of the fistula. I could find no evidence of previous holes or any active leakage at surgery. I consider this fully resolved. (8) Abdominal abscess: Status: Acute Assessment and Plan: No abscess is seen at surgery. There were some burned out abscesses that were still small encapsulated areas but had no purulent fluid. They only contained yellow soft material. These abscesses were broken down but the daugherty were left attached to the small bowel to avoid injury. No abdominal abscesses at all at this time. Subjective Subjective Date/Time Seen: 09/05/23 18:04 Post Op day: 1 Patient reports: no bowel movement (Per rectum), bowel movement (Some stool per colostomy bag) and fever Review of Systems Review of Systems: ROS unobtainable: Yes unobtainable due to medical condition Exam Const: General: comfortable, no acute distress, lethargic and tired appearing Nutritional Appearance: edematous GI: Inspection: distended, incision (Dressing dry and intact) and other (Colostomy pink and viable) GI Palp: Yes Soft to palpation, Yes Tenderness to palpation present (GI), No Guarding due to palpation present (GI) and No Rebound tenderness present Auscultation: Hypoactive bowel sounds present Urinary Catheter: Urinary Catheter: patent and draining Objective Data Vital Signs Vital Signs: Vital Signs - 24 hr 09/04/23 19:00 09/04/23 19:10 09/04/23 20:07 Temperature 37.4 C Pulse Rate 91 132 H Respiratory Rate 28 H Blood Pressure 123/75 Pulse Oximetry 98 98 Oxygen Delivery Mechanical Ventilation Fraction of Inspired Oxygen 35 09/04/23 19:00 09/04/23 19:59 09/04/23 20:14 Temperature 37.5 C 37.6 C Pulse Rate 97 120 H 118 H Respiratory Rate 15 27 H 25 H
[2023-09-05 19:13] LABS: Glucose Point of Care 199 mg/dl (65-105)
[2023-09-05 23:42] LABS: Glucose Point of Care 181 mg/dl (65-105)
[2023-09-06] VITALS (34 sets, daily range): BP systolic 76–124; BP diastolic 50–73; PULSE 95–119; RESP 24–35; TEMP 37.6–38.9; O2SAT 94–99
[2023-09-06] MEDS: ACETAMINOPHEN ELIXIR 325 MG/10.15 ML UDC 650 MG FEED TUBE ×3 (04:07→21:12)
[2023-09-06] MEDS: MORPHINE SULFATE (*CRX) 2 MG/ML INJ IV PUSH ×2 (04:15→11:06)
[2023-09-06] MEDS: CENTRAL LINE FLUSH 10 ML IV PUSH ×3 (05:14→21:00)
[2023-09-06] MEDS: LEVOTHYROXINE SODIUM INJ 100 MCG/5 ML VIAL 50 MCG IV PUSH (05:14)
[2023-09-06] MEDS: VANCOMYCIN 1,500 MG/NS 500 ML 1,500 MG/500 ML BAG 250 MG IVPB (05:15)
[2023-09-06 05:29] LABS: Basophils Absolute Auto 0.1 K/mm3 (0.0-0.1); Basophils Percent Auto 0.4 % (0.2-1.2); Eosinophils Percent Auto 0.2 % (0-4.4); Hematocrit 31.4 % (42.0-52.0); Hemoglobin 9.6 g/dL (14.0-18.0); Immature Granulocyte Absolute 0.25 K/mm3 (0.00-0.031); Immature Granulocyte Percent A 1.3 % (0-0.5); Lymphocytes Absolute Auto 1.15 K/mm3 (0.9-3.2); Lymphocytes Percent Auto 5.9 % (18.3-44.2); Mean Corpuscular HGB Conc 30.6 g/dl (32-36); Mean Corpuscular Hemoglobin 30.3 pg (26-34); Mean Corpuscular Volume 99.1 fl (80-100); Mean Platelet Volume 10.4 fl (7.4-10.4); Monocytes Absolute Auto 0.8 K/mm3 (0.1-0.6); Monocytes Percent Auto 3.9 % (2.6-8.5); Neutrophils Absolute Auto 17.2 K/mm3 (1.3-6.7); Neutrophils Percent Auto 88.3 % (45.5-73.1); Platelet Count Result 274 k/mm3 (150-375); Red Blood Count 3.17 M/mm3 (4.6-6.20); Red Cell Distribution Width 14.6 % (11.5-14.5); White Blood Count 19.5 K/mm3 (4.5-10.0)
[2023-09-06 05:49] LABS: Alanine Aminotransferase 22 U/L (6-50); Albumin Level 2.2 g/dL (3.5-5.1); Alkaline Phosphatase 117 U/L (38-126); Anion Gap 3 mmol/L (8-16); Aspartate Amino Transferase 17 U/L (17-59); Bilirubin,Total 0.7 mg/dL (0.2-1.3); Blood Urea Nitrogen 43 mg/dL (9-20); Calcium 7.6 mg/dL (8.4-10.2); Carbon Dioxide 22 mmol/L (22-30); Chloride 108 mmol/L (98-107); Estimated CRCL calculation 48 ml/min; Estimated Glomerular Filt Rate 48; Glucose 167 mg/dL (65-110); Magnesium 2.1 mg/dL (1.6-2.3); Phosphorus 3.7 mg/dL (2.5-4.5); Potassium 4.6 mmol/L (3.4-5.0); Sodium 133 mmol/L (137-145)
[2023-09-06] MEDS: CEFEPIME 2 GM/NS 50 ML 2 GM/50 ML BAG IVPB ×2 (08:36→20:59)
[2023-09-06] MEDS: ASPIRIN 81 MG CHEWABLE TABLET 162 MG PO (08:37)
[2023-09-06] MEDS: LACTATED RINGERS 1,000 ML 100 ML IV CONT ×2 (08:37→18:23)
[2023-09-06] MEDS: LACTATED RINGERS 1,000 ML 999 ML IV CONT (08:37)
[2023-09-06] MEDS: ENOXAPARIN 40 MG/0.4 ML SYRINGE SUB-Q (08:37)
[2023-09-06] MEDS: PANTOPRAZOLE SODIUM IV 40 MG VIAL IV PUSH (08:37)
[2023-09-06] MEDS: MINERAL OIL/WHITE PETROLATUM OINTMENT 1 APPLIC EACH EYE ×2 (08:38→21:00)
[2023-09-06] MEDS: COLLAGENASE OINT 30 GM TUBE 1 APPLIC TOPICAL (08:38)
[2023-09-06] MEDS: SODIUM CHLORIDE 1 GM TABLET PO ×2 (08:38→17:03)
[2023-09-06] MEDS: ALBUMIN HUMAN 25% 25 GM/100 ML 100 ML IVPB ×4 (09:36→23:58)
--- NOTE | 2023-09-06 09:40 | P.PNINT_ITS ---
Progress Note: A&P Assessment and Plan (1) Acute respiratory failure: Qualifiers: Respiratory failure complication: hypoxia and hypercapnia Qualified Code(s): J96.01 - Acute respiratory failure with hypoxia; J96.02 - Acute respiratory failure with hypercapnia Code(s): J96.00 - Acute respiratory failure, unspecified whether with hypoxia or hypercapnia Status: Acute Assessment and Plan: Acute hypoxic and hypercarbic respiratory failure. Chest x-ray shows diffuse lung disease most likely which improved with diuretics. ABG chest x-ray and ventilator settings reviewed this morning 08/17 Patient placed on PSV but failed quickly due to high RSBI. PSV increased to 15/8 to get adequate RSBI. Patient tolerated that for many hours It appears the patient is severely deconditioned and weak 08/18 will re try PSV again today. Continue Bumex to manage the fluid balance 08/19 patient placed on PSV again today. Patient either had low rate on high pressure support or low tidal volume lower pressure support. I was able to get adequate RSBI on 06/30. This is better than what he has done in the past but still good enough for extubation. I will continue pressure support ventilation as tolerated through the day and try to wean down pressure support. 08/20 patient placed on PSV again and can only get adequate RSBI on 06/30. If extubated patient will need and NIPPV which because of his deconditioning and fluctuating mental status may not be good option. Will continue PSV as tolerated today Antibiotics as below Low tidal volume management -08/21, patient placed on pressure support ventilation 08/27, respiratory rate was low with decreased tidal volumes, placed on ASV mode, patient's respiratory rate remained low patient was placed back on CMV mode, will try again today -08/22: Patient tolerated PSV 10/5 for approximately 6-7 hours after which the tidal volumes were low, patient seemed to be tired and weak and was placed on CMV mode 08/23: Tolerated PSV 8/5 for approximately 3 hours, and had to be placed on CMV mode as dropped his tidal volumes and was tachypneic 08/24: Patient tolerated PSV 10/5 for few hours and had increased work of breathing and decrease tidal volumes so was placed back on CMV mode -08/25: Tolerated pressure support ventilation 10/5 all day long and was switched to ASV overnight -08/26: Tolerated PSV 10/5 for a few hours and had to be placed back on CMV mode of ventilation -08/27: Discuss with family, surgery, does not seem that the patient is going to come off the ventilator since he is not tolerating appropriate spontaneous breathing trial. Discussed with them regarding tracheostomy to which the family and the surgeon are agreeable. ENT has been consulted and tracheostomy scheduled for 08/30 Continue Bumex as needed to keep balance even 08/28 did not tolerate PSV for prolonged period of time 08/30 patient now status post tracheostomy. 08/31 patient placed on PSV but only tolerated for some time as patient kept on going into apnea ventilation and switching SIMV mode. 09/02 tolerated PSV till 7:00 p.m. with intermittent low respirator alarms 09/03 patient was trialed on PSV but patient kept on going into apnea ventilation and low tidal volume. he was switched back to CMV 09/05 patient did not tolerate PSV due to tachypnea and low tidal volumes 09/06 will evaluate for PSV again today (2) Sepsis: Qualifiers: Sepsis type: sepsis due to unspecified organism Sepsis acute organ dysfunction status: with acute organ dysfunction Severe sepsis acute organ dysfunction type: acute renal failure Acute renal failure type: unspecified Severe sepsis shock status: without septic shock Qual
--- NOTE | 2023-09-06 11:19 | PM.IMPN ---
Progress Note: A&P Assessment and Plan (1) Acute respiratory failure: Qualifiers: Respiratory failure complication: hypoxia and hypercapnia Qualified Code(s): J96.01 - Acute respiratory failure with hypoxia; J96.02 - Acute respiratory failure with hypercapnia Code(s): J96.00 - Acute respiratory failure, unspecified whether with hypoxia or hypercapnia Status: Acute Assessment and Plan: Acute hypoxic and hypercarbic respiratory failure. Chest x-ray shows diffuse lung disease most likely which improved with diuretics. ABG chest x-ray and ventilator settings reviewed this morning 08/17 Patient placed on PSV but failed quickly due to high RSBI. PSV increased to 15/8 to get adequate RSBI. Patient tolerated that for many hours It appears the patient is severely deconditioned and weak 08/18 will re try PSV again today. Continue Bumex to manage the fluid balance 08/19 patient placed on PSV again today. Patient either had low rate on high pressure support or low tidal volume lower pressure support. I was able to get adequate RSBI on 06/30. This is better than what he has done in the past but still good enough for extubation. I will continue pressure support ventilation as tolerated through the day and try to wean down pressure support. 08/20 patient placed on PSV again and can only get adequate RSBI on 06/30. If extubated patient will need and NIPPV which because of his deconditioning and fluctuating mental status may not be good option. Will continue PSV as tolerated today Antibiotics as below Low tidal volume management -08/21, patient placed on pressure support ventilation 08/27, respiratory rate was low with decreased tidal volumes, placed on ASV mode, patient's respiratory rate remained low patient was placed back on CMV mode, will try again today -08/22: Patient tolerated PSV 10/5 for approximately 6-7 hours after which the tidal volumes were low, patient seemed to be tired and weak and was placed on CMV mode 08/23: Tolerated PSV 8/5 for approximately 3 hours, and had to be placed on CMV mode as dropped his tidal volumes and was tachypneic 08/24: Patient tolerated PSV 10/5 for few hours and had increased work of breathing and decrease tidal volumes so was placed back on CMV mode -08/25: Tolerated pressure support ventilation 10/5 all day long and was switched to ASV overnight -08/26: Tolerated PSV 10/5 for a few hours and had to be placed back on CMV mode of ventilation -08/27: Discuss with family, surgery, does not seem that the patient is going to come off the ventilator since he is not tolerating appropriate spontaneous breathing trial. Discussed with them regarding tracheostomy to which the family and the surgeon are agreeable. ENT has been consulted and tracheostomy scheduled for 08/30 Continue Bumex as needed to keep balance even 08/28 did not tolerate PSV for prolonged period of time 08/30 patient now status post tracheostomy. 08/31 patient placed on PSV but only tolerated for some time as patient kept on going into apnea ventilation and switching SIMV mode. 09/02 tolerated PSV till 7:00 p.m. with intermittent low respirator alarms 09/03 patient was trialed on PSV but patient kept on going into apnea ventilation and low tidal volume. he was switched back to CMV 09/05 patient did not tolerate PSV due to tachypnea and low tidal volumes 09/06/2023 will continue with vent support and evaluate for PSV later today.. (2) Sepsis: Qualifiers: Sepsis type: sepsis due to unspecified organism Sepsis acute organ dysfunction status: with acute organ dysfunction Severe sepsis acute organ dysfunction type: acute renal failure Acute renal failure type: unspecified Severe sepsis shock status: without septic shock Qualified Code(s): A41.9 - Sepsis, unspecified organism; R65.20 - Severe sepsis without septic shock; N17.9 - Acute kidney failure, unspecified Code(s): A41.9 - Sepsis, unspecified organism Status: Acute
[2023-09-06 11:21] LABS: Lactic Acid Reflex 1.2 mmol/L (0.7-2.0)
[2023-09-06 11:32] LABS: Glucose Point of Care 164 mg/dl (65-105)
--- NOTE | 2023-09-06 14:15 | PCNFU ---
Nutrition Follow-Up Complete: Swallowing Difficulties as related to mentation/risk of aspiration as evidenced by NPO. goal: Meet estimated nutritional needs Patient will continue current goal. Pt current nutrition is TPN. Last recorded weight is 121.4 kg, up from 108 kg on admit. Bowel Motility:colostomy Labs Reviewed:Glu 167, BUN 43, GFR 48, Cr 1.4,Na 133, Alb 2.2 Meds Noted: Protonix, Lovenox, Clinimix E at 80 ml/hr with 250 of 20% Lipid Emulsion, LR. Skin: WNL Additional Notes: Patient current with Trach. TPN continues at Day 30, TPN providing 1863 kcals/96 gms protein, meeting 92% kcal needs and 99% protein needs. Would recommend starting trickle feedings when medically able of Vital AF 1.2 at 20 ml/hr. Will monitor weight, labs, skin, meds, TPN every Saturday and Saturday.
[2023-09-06] MEDS: AMINO ACIDS 5%/D15W/E-LYTES/CA 2,000 ML with MULTIVITAMINS-12 INJ VIAL 1 2.5 ML, MULTIV... 80 ML IV CONT (14:53)
[2023-09-06] MEDS: FAT EMULSIONS IV 20% 250 ML 20.8 ML IVPB (14:53)
[2023-09-06 17:28] LABS: Glucose Point of Care 122 mg/dl (65-105)
--- NOTE | 2023-09-06 22:31 | PM.PNGS ---
Progress Note: A&P Assessment and Plan (1) Fever: Qualifiers: Fever type: unspecified Qualified Code(s): R50.9 - Fever, unspecified Code(s): R50.9 - Fever, unspecified Status: Acute Assessment and Plan: Still febrile with rising white blood cell count. Usually postoperative fever right after surgery is due to atelectasis. Discussed with Dr. Peacock who will increase the PEEP and hopefully this will help. If fevers and leukocytosis continue, will get follow-up CT scan of the abdomen and pelvis. Cultures done recently of blood urine sputum were all negative. (2) S/P partial colectomy: Code(s): Z90.49 - Acquired absence of other specified parts of digestive tract Status: Acute Assessment and Plan: This was associated with 2 and half to 3 hours of adhesiolysis. Patient now distended. Continue NG tube to suction and follow daily exams, abdominal films and NG output. 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 (5) Respiratory failure: Qualifiers: Chronicity: chronic Respiratory failure complication: hypercapnia Qualified Code(s): J96.12 - Chronic respiratory failure with hypercapnia Code(s): J96.90 - Respiratory failure, unspecified, unspecified whether with hypoxia or hypercapnia Status: Chronic Assessment and Plan: With tracheostomy and continued mechanical ventilation. (6) Protein-calorie malnutrition, severe: Code(s): E43 - Unspecified severe protein-calorie malnutrition Status: Acute Assessment and Plan: Continue TPN (7) Hypotension: Qualifiers: Hypotension type: postprocedural hypotension Qualified Code(s): I95.81 - Postprocedural hypotension Code(s): I95.9 - Hypotension, unspecified Status: Acute Assessment and Plan: Currently on phenylephrine. Subjective Subjective Date/Time Seen: 09/06/23 13:11 Post Op day: 2 Patient reports: no bowel movement, shortness of breath (Unable to come off the ventilator) and fever Interval history: Sleeping today but does arouse then falls back to sleep. Exam Const: General: lethargic and tired appearing Orientation/consciousness: lethargic GI: Inspection: distended, incision (Dry and healing adequately) and other (Colostomy pink with small amount of liquid stool in the bag) GI Palp: Yes Firmness to palpation present (GI) and Yes Tenderness to palpation present (GI) Auscultation: normal bowel sounds Urinary Catheter: Urinary Catheter: patent and draining Objective Data Vital Signs Vital Signs: Vital Signs - 24 hr 09/05/23 23:42 09/06/23 00:00 09/06/23 00:00 Temperature 38.4 C H Pulse Rate Respiratory Rate Blood Pressure Pulse Oximetry Oxygen Delivery Mechanical Ventilation Fraction of Inspired Oxygen 30 30 09/06/23 00:00 09/06/23 00:00 09/06/23 00:42 Temperature 38.6 C H 38.7 C H Pulse Rate 100 107 H Respiratory Rate 35 H Blood Pressure 105/63 Pulse Oximetry 95 Oxygen Delivery Fraction of Inspired Oxygen 09/06/23 02:00 09/06/23 02:00 09/05/23 23:06 Temperature 38.9 C H Pulse Rate 100 100 109 H Respiratory Rate 34 H Blood Pressure 99/58 L Pulse Oximetry 97 97 Oxygen Delivery Mechanical Ventilation Fraction of Inspired Oxygen 30 09/06/23 02:35 09/06/23 04:00 09/06/23 04:07 Temperature 38.7 C H 38.7 C H Pulse Rate 98 104 H Respiratory Rate 30 H Blood Pressure 95/62 L Pulse Oximetry 97 96 Oxygen Delivery Mechanical Ventilation Fraction of Inspired Oxygen 30 09/06/23 04:00 09/06/23 04:00 09/06/23 04:00 Temperature Pulse Rate 100 Respiratory Rate Blood Pressure Pulse Oxim
[2023-09-07] VITALS (27 sets, daily range): BP systolic 91–123; BP diastolic 55–67; PULSE 92–111; RESP 18–29; TEMP 36.8–38.2; O2SAT 93–99
[2023-09-07 00:03] LABS: Glucose Point of Care 139 mg/dl (65-105)
[2023-09-07 05:01] LABS: Hematocrit 25.9 % (42.0-52.0); Mean Corpuscular HGB Conc 30.9 g/dl (32-36); Mean Corpuscular Hemoglobin 30.5 pg (26-34); Mean Corpuscular Volume 98.9 fl (80-100); Mean Platelet Volume 10.5 fl (7.4-10.4); Platelet Count Result 224 k/mm3 (150-375); Red Blood Count 2.62 M/mm3 (4.6-6.20); Red Cell Distribution Width 14.8 % (11.5-14.5); White Blood Count 11.8 K/mm3 (4.5-10.0)
[2023-09-07 05:10] LABS: Triglycerides 149 mg/dL (<150)
[2023-09-07 05:16] LABS: Alanine Aminotransferase 16 U/L (6-50); Albumin Level 2.7 g/dL (3.5-5.1); Alkaline Phosphatase 96 U/L (38-126); Anion Gap 8 mmol/L (8-16); Aspartate Amino Transferase 18 U/L (17-59); Bilirubin,Total 0.8 mg/dL (0.2-1.3); Blood Urea Nitrogen 54 mg/dL (9-20); Carbon Dioxide 18 mmol/L (22-30); Chloride 107 mmol/L (98-107); Estimated CRCL calculation 36 ml/min; Estimated Glomerular Filt Rate 34; Glucose 129 mg/dL (65-110); Potassium 4.4 mmol/L (3.4-5.0); Sodium 133 mmol/L (137-145)
[2023-09-07] MEDS: ALBUMIN HUMAN 25% 25 GM/100 ML 100 ML IVPB ×4 (05:50→23:54)
[2023-09-07] MEDS: CENTRAL LINE FLUSH 10 ML IV PUSH ×3 (05:50→20:57)
[2023-09-07] MEDS: LEVOTHYROXINE SODIUM INJ 100 MCG/5 ML VIAL 50 MCG IV PUSH (05:50)
[2023-09-07] MEDS: SODIUM CHLORIDE 1 GM TABLET PO ×2 (08:03→16:35)
[2023-09-07] MEDS: PANTOPRAZOLE SODIUM IV 40 MG VIAL IV PUSH (08:03)
[2023-09-07] MEDS: CEFEPIME 2 GM/NS 50 ML 2 GM/50 ML BAG IVPB ×2 (08:03→20:42)
[2023-09-07] MEDS: COLLAGENASE OINT 30 GM TUBE 1 APPLIC TOPICAL (08:03)
[2023-09-07] MEDS: ASPIRIN 81 MG CHEWABLE TABLET 162 MG PO (08:03)
[2023-09-07] MEDS: MINERAL OIL/WHITE PETROLATUM OINTMENT 1 APPLIC EACH EYE ×2 (08:03→20:43)
[2023-09-07] MEDS: ENOXAPARIN 40 MG/0.4 ML SYRINGE SUB-Q (09:11)
[2023-09-07 09:47] LABS: Appearance Urine Cloudy (Clear); Color Urine Light Yellow (Yellow); pH Urine 5.5 (5.0-9.0)
[2023-09-07 09:48] LABS: Add Urine Microscopic? YES; Bilirubin Urine Negative (Negative); Blood Urine 1+ (Negative); Glucose Urine UA Negative (Negative); Ketones Urine Trace mg/dL (Negative); Leukocyte Esterase Ur 2+ LEU/UL (Negative); Nitrate Urine Negative (Negative); Protein Urine 2+ mg/dL (Negative); Urobilinogen Urine 0.2 mg/dL (<2.0)
[2023-09-07 10:07] LABS: WBC Urine 21-30 /hpf (0-3)
[2023-09-07 10:08] LABS: Amorphous Sediment Urine Few; Bacteria Urine Trace /hpf; Budding Yeast Urine Present /hpf; Squamous Epithelial Cell Urine Occasional /hpf (Few)
[2023-09-07] MEDS: FLUCONAZOLE 200 MG/NACL 100 ML 200 MG/100 ML BAG 100 MG IVPB (13:30)
[2023-09-07] MEDS: FAT EMULSIONS IV 20% 250 ML 20.8 ML IVPB (14:35)
[2023-09-07] MEDS: AMINO ACIDS 5%/D15W/E-LYTES/CA 2,000 ML with MULTIVITAMINS-12 INJ VIAL 1 2.5 ML, MULTIV... 80 ML IV CONT (14:36)
[2023-09-07 16:04] LABS: Glucose Point of Care 135 mg/dl (65-105)
--- NOTE | 2023-09-07 17:42 | PM.PNGS ---
Progress Note: A&P Assessment and Plan (1) S/P partial colectomy: Code(s): Z90.49 - Acquired absence of other specified parts of digestive tract Status: Acute Assessment and Plan: Postop day 3. He definitely has signs of improvement with his fever going away and his white blood cell count coming down. Pathology on the sigmoid resection does showed diverticulitis with perforation and abscess. This is interesting as none of his CT scans noted this. Not sure what role this was playing in his abdominal infection. Still has adynamic ileus due to several hours of enterolysis. Explained to family that this could take a week for the ileus to resolve. Wound is healing nicely. Still distended with absent bowel sounds. 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 Continue collagenase wound dressings daily and p.r.n.. (4) Fever: Qualifiers: Fever type: unspecified Qualified Code(s): R50.9 - Fever, unspecified Code(s): R50.9 - Fever, unspecified Status: Acute Assessment and Plan: Has come down nicely last 3 days. Possibly due to atelectasis. (5) Protein-calorie malnutrition, severe: Code(s): E43 - Unspecified severe protein-calorie malnutrition Status: Acute Assessment and Plan: Continue TPN, meeting needs per dietitian. (6) Hypotension: Qualifiers: Hypotension type: postprocedural hypotension Qualified Code(s): I95.81 - Postprocedural hypotension Code(s): I95.9 - Hypotension, unspecified Status: Acute Assessment and Plan: Resolved. Patient off pressors. Now having some MOISÉS which could be related to surgery and postoperative hypotension with pressor treatment. Will watch this closely. (7) Fungus present in urine: Code(s): B49 - Unspecified mycosis Status: Acute Assessment and Plan: Started on Diflucan per Dr. Peacock. He has had a Weathers catheter in for a long time, typically the catheter becomes colonized with yeast and it starts showing up in the urine. Continue Diflucan per now. Subjective Subjective Date/Time Seen: 09/07/23 17:42 Post Op day: 3 Patient reports: bowel movement, afebrile (Temperature curve has come down nicely last 3 days) and other (Remains on ventilator with tracheostomy) Interval history: Remains sleepy and lethargic but at different times of the day he will be awake, follow commands, right answers to questions on a writing board. Exam Const: General: comfortable, tired appearing and edematous GI: Inspection: distended, incision (No erythema or drainage, appears to be healing.) and other (Colostomy pink and viable. Small amount liquid stool in bag) GI Palp: Yes Firmness to palpation present (GI) and Yes Tenderness to palpation present (GI) Auscultation: absent bowel sounds Objective Data Vital Signs Vital Signs: Vital Signs - 24 hr 09/06/23 18:00 09/06/23 18:00 09/06/23 18:00 Temperature 38.0 C H Pulse Rate 115 H 112 H 100 Respiratory Rate 30 H Blood Pressure 98/65 L 116/58 L Pulse Oximetry 95 Oxygen Delivery Fraction of Inspired Oxygen 09/06/23 21:04 09/06/23 21:12 09/06/23 20:00 Temperature 38.3 C H Pulse Rate 105 H 95 Respiratory Rate Blood Pressure Pulse Oximetry 96 Oxygen Delivery Mechanical Ventilation Fraction of Inspired Oxygen 30 09/06/23 20:00 09/06/23 20:00 09/06/23 20:00 Temperature 38.2 C H Pulse Rate 95 Respiratory Rate 28 H Blood Pressure 113/63 Pulse Oximetry 95 95 Oxygen Delivery Mechanical Ventilation Fraction of Inspired Oxygen 30 30 09/06/23 21:48 09/06/23 22:00 09/06/23 22:00 Temperature 38.2 C H Pulse Rate 104 H 100 100 Respi
[2023-09-07 17:48] LABS: Glucose Point of Care 128 mg/dl (65-105)
[2023-09-07] MEDS: ACETAMINOPHEN ELIXIR 325 MG/10.15 ML UDC 650 MG FEED TUBE (18:36)
[2023-09-08] VITALS (31 sets, daily range): BP systolic 102–131; BP diastolic 58–78; PULSE 88–107; RESP 18–116; TEMP 36.9–37.5; O2SAT 25–98
[2023-09-08] MEDS: MORPHINE SULFATE (*CRX) 2 MG/ML INJ IV PUSH (01:09)
[2023-09-08 05:22] LABS: Hemoglobin 7.3 g/dL (14.0-18.0); Mean Corpuscular HGB Conc 30.4 g/dl (32-36); Mean Corpuscular Hemoglobin 30.7 pg (26-34); Mean Corpuscular Volume 100.8 fl (80-100); Mean Platelet Volume 11.1 fl (7.4-10.4); Platelet Count Result 173 k/mm3 (150-375); Red Blood Count 2.38 M/mm3 (4.6-6.20); White Blood Count 11.3 K/mm3 (4.5-10.0)
[2023-09-08 05:42] LABS: Alanine Aminotransferase 17 U/L (6-50); Alkaline Phosphatase 106 U/L (38-126); Anion Gap 9 mmol/L (8-16); Aspartate Amino Transferase 22 U/L (17-59); Bilirubin,Total 0.9 mg/dL (0.2-1.3); Blood Urea Nitrogen 66 mg/dL (9-20); Calcium 8.1 mg/dL (8.4-10.2); Carbon Dioxide 17 mmol/L (22-30); Chloride 106 mmol/L (98-107); Estimated CRCL calculation 29 ml/min; Estimated Glomerular Filt Rate 26; Glucose 125 mg/dL (65-110); Potassium 4.2 mmol/L (3.4-5.0); Sodium 132 mmol/L (137-145)
[2023-09-08] MEDS: ALBUMIN HUMAN 25% 25 GM/100 ML 100 ML IVPB ×3 (05:47→17:34)
[2023-09-08] MEDS: CENTRAL LINE FLUSH 10 ML IV PUSH ×3 (05:48→21:17)
[2023-09-08] MEDS: LEVOTHYROXINE SODIUM INJ 100 MCG/5 ML VIAL 50 MCG IV PUSH (05:48)
[2023-09-08 07:57] LABS: Glucose Point of Care 120 mg/dl (65-105)
[2023-09-08] MEDS: ASPIRIN 81 MG CHEWABLE TABLET 162 MG PO (08:52)
[2023-09-08] MEDS: CEFEPIME 1 GM/NS 50 ML 1 GM/50 ML BAG IVPB (08:52)
[2023-09-08] MEDS: MINERAL OIL/WHITE PETROLATUM OINTMENT 1 APPLIC EACH EYE (08:52)
[2023-09-08] MEDS: ENOXAPARIN 40 MG/0.4 ML SYRINGE SUB-Q (08:52)
[2023-09-08] MEDS: PANTOPRAZOLE SODIUM IV 40 MG VIAL IV PUSH (08:52)
[2023-09-08] MEDS: COLLAGENASE OINT 30 GM TUBE 1 APPLIC TOPICAL (08:52)
[2023-09-08] MEDS: SODIUM CHLORIDE 1 GM TABLET PO ×2 (08:53→16:12)
[2023-09-08 12:10] LABS: Glucose Point of Care 128 mg/dl (65-105)
[2023-09-08] MEDS: FLUCONAZOLE 200 MG/NACL 100 ML 200 MG/100 ML BAG 100 MG IVPB (12:13)
--- NOTE | 2023-09-08 14:01 | PM.PNNEP ---
Progress Note: A&P Assessment and Plan (1) MOISÉS (acute kidney injury): Code(s): N17.9 - Acute kidney failure, unspecified Status: Acute Assessment and Plan: multiple episodes noted since admission multifactorial issues present: prerenal factors relative hypotension (sometimes as low as 80s systolic) ongoing use of ARB (losartan) previous IV ibuprofen use contrast exposure (CT scan on 08/04/23) recurrent infection/sepsis (suspect major component) evaluation during this hospital stay: renal ultrasound okay urine electrolytes prerenal urine eosinophils negative CPK mildly elevated (but not likely to affect kidney function) rising BUN and creatinine noted but good urine output noted follow trend of repeat labs and UOP remains at risk for POLL CLERK/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 (2) Sepsis: Qualifiers: Sepsis type: sepsis due to unspecified organism Sepsis acute organ dysfunction status: with acute organ dysfunction Severe sepsis acute organ dysfunction type: acute renal failure Acute renal failure type: unspecified Severe sepsis shock status: without septic shock Qualified Code(s): A41.9 - Sepsis, unspecified organism; R65.20 - Severe sepsis without septic shock; N17.9 - Acute kidney failure, unspecified Code(s): A41.9 - Sepsis, unspecified organism Status: Acute Assessment and Plan: remains hemodynamically stable multiple issues/etiologies: recurrent abdominal abscesses as noted by imaging peritonitis (see recent ascites fluid cultures) previous cholecystitis previous pneumonia extensive culture data noted on antibiotics (3) Acute respiratory failure: Qualifiers: Respiratory failure complication: hypoxia and hypercapnia Qualified Code(s): J96.01 - Acute respiratory failure with hypoxia; J96.02 - Acute respiratory failure with hypercapnia Code(s): J96.00 - Acute respiratory failure, unspecified whether with hypoxia or hypercapnia Status: Acute Assessment and Plan: s/p tracheostomy for prolonged ventilator weaning complicated by weakness and severe deconditioning PRN diuretics to maintain volume status continue weaning trial as tolerated (4) Pelvic abscess in male: Code(s): K65.1 - Peritoneal abscess Status: Acute Assessment and Plan: previous drains removed s/p sigmoidectomy with end descending colostomy and Willy procedure (done on 09/04) on antibiotics follow-up on repeat imaging (5) Decubitus ulcer: Code(s): L89.90 - Pressure ulcer of unspecified site, unspecified stage Status: Acute Assessment and Plan: s/p debridement and diverting colostomy local wound care Surgery following (6) Anemia: Qualifiers: Anemia type: other cause Other causes of anemia: chronic disease, other Qualified Code(s): D63.8 - Anemia in other chronic diseases classified elsewhere Code(s): D64.9 - Anemia, unspecified Status: Acute Assessment and Plan: due to operative interventions, acute illness and MOISÉS PRBC transfusion per protocol follow trend of H/H Will continue to follow. Subjective Date/time seen: 09/08/23 14:01 Interval history: Called to see patient again for another bout of acute kidney injury/acute renal failure. Chart reviewed since last seen -- multiple issues/events since I last saw the patient; he was transferred back to ICU on 08/15 for respiratory distress and hypoxia; he failed improvement with BiPAP therapy and required intubation, he was to have several intra-abdominal abscesses develop requiring placement of multiple drains by IR; failed numerous attempts at ventilatory weaning and is now s/p tracheostomy (done on 08/30); recent sigmoidectomy with end descending colostomy and Willy procedure done on 09/04; unfortunately, creatinine has been rising in the last few days in association with a decline in urine output. Exam [place]
--- NOTE | 2023-09-08 14:01 | P.PNNP_ITS ---
Progress Note: A&P Assessment and Plan (1) MOISÉS (acute kidney injury): Code(s): N17.9 - Acute kidney failure, unspecified Status: Acute Assessment and Plan: * multiple episodes noted since admission * multifactorial issues present: * prerenal factors * relative hypotension (sometimes as low as 80s systolic) * ongoing use of ARB (losartan) * previous IV ibuprofen use * contrast exposure (CT scan on 08/04/23) * recurrent infection/sepsis (suspect major component) * evaluation during this hospital stay: * renal ultrasound okay * urine electrolytes prerenal * urine eosinophils negative * CPK mildly elevated (but not likely to affect kidney function) * rising BUN and creatinine noted but good urine output noted * follow trend of repeat labs and UOP * remains at 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 for 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/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 (2) Sepsis: Qualifiers: Sepsis type: sepsis due to unspecified organism Sepsis acute organ dysfunction status: with acute organ dysfunction Severe sepsis acute organ dysfunction type: acute renal failure Acute renal failure type: unspecified Severe sepsis shock status: without septic shock Qualified Code(s): A41.9 - Sepsis, unspecified organism; R65.20 - Severe sepsis without septic shock; N17.9 - Acute kidney failure, unspecified Code(s): A41.9 - Sepsis, unspecified organism Status: Acute Assessment and Plan: * remains hemodynamically stable * multiple issues/etiologies: * recurrent abdominal abscesses as noted by imaging * peritonitis (see recent ascites fluid cultures) * previous cholecystitis * previous pneumonia * extensive culture data noted * on antibiotics (3) Acute respiratory failure: Qualifiers: Respiratory failure complication: hypoxia and hypercapnia Qualified Code(s): J96.01 - Acute respiratory failure with hypoxia; J96.02 - Acute respiratory failure with hypercapnia Code(s): J96.00 - Acute respiratory failure, unspecified whether with hypoxia or hypercapnia Status: Acute Assessment and Plan: * s/p tracheostomy for prolonged ventilator weaning * complicated by weakness and severe deconditioning * PRN diuretics to maintain volume status * continue weaning trial as tolerated (4) Pelvic abscess in male: Code(s): K65.1 - Peritoneal abscess Status: Acute Assessment and Plan: * previous drains removed * s/p sigmoidectomy with end descending colostomy and Willy procedure (done on 09/04) * on antibiotics * follow-up on repeat imaging (5) Decubitus ulcer: Code(s): L89.90 - Pressure ulcer of unspecified site, unspecified stage Status: Acute Assessment and Plan: * s/p debridement and diverting colostomy * local wound care * Surgery following (6) Anemia: Qualifiers: Anemia type: other cause Other causes of anemia: chronic disease, other Qualified Code(s): D63.8 - Anemia in other chronic diseases classified elsewhere Code(s): D64.9 - Anemia, unspecified Status: Acute Assessment and Plan: * due to operative interventions, acute illness and MOISÉS * PRBC transfusion per protocol * follow trend of H/H Will continue to follow. Subjective Date/time seen: 09/08/23 14:01 Interval history: Called to see patient again for another bout of acute kidney injury/acute renal failure. Chart reviewed since last seen -- multiple issues/events since I last saw the patient; he was transferred back to ICU on 08/15 for respiratory distress and
[2023-09-08 14:34] LABS: Mean Corpuscular HGB Conc 27.4 g/dl (32-36); Mean Corpuscular Hemoglobin 30.4 pg (26-34); Mean Corpuscular Volume 111.1 fl (80-100); Platelet Count Result 192 k/mm3 (150-375); Red Blood Count 2.07 M/mm3 (4.6-6.20); Red Cell Distribution Width 15.6 % (11.5-14.5); White Blood Count 10.9 K/mm3 (4.5-10.0)
[2023-09-08 14:41] LABS: Hemoglobin 6.3 g/dL (14.0-18.0)
[2023-09-08] MEDS: AMINO ACIDS 5%/D15W/E-LYTES/CA 2,000 ML with MULTIVITAMINS-12 INJ VIAL 1 2.5 ML, MULTIV... 80 ML IV CONT (15:18)
[2023-09-08] MEDS: FAT EMULSIONS IV 20% 250 ML 20.8 ML IVPB (15:18)
--- NOTE | 2023-09-08 15:31 | PM.PNGS ---
Progress Note: A&P Assessment and Plan (1) MOISÉS (acute kidney injury): Code(s): N17.9 - Acute kidney failure, unspecified Status: Acute Assessment and Plan: Urine output better but creatinine continues to rise. Probably due to prolonged surgery, hypotension postop requiring pressors. Nephrology to see. He appears edematous and may benefit from diuresis. Pending nephrology evaluation. Discussed with Dr. Peacock. (2) Anemia: Qualifiers: Anemia type: other cause Other causes of anemia: chronic disease, other Qualified Code(s): D63.8 - Anemia in other chronic diseases classified elsewhere Code(s): D64.9 - Anemia, unspecified Status: Acute Assessment and Plan: Patient to get 1 unit packed cells today. Continue to follow H&H. Consider diuretic. (3) S/P partial colectomy: Code(s): Z90.49 - Acquired absence of other specified parts of digestive tract Status: Acute Assessment and Plan: No abdominal process noted postoperatively. Pathology on sigmoid colon was diverticulitis with perforation and abscesses. Still has adynamic ileus postop, not unexpected. 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 No significant output as yet. 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 (6) Respiratory failure: Qualifiers: Chronicity: chronic Respiratory failure complication: hypercapnia Qualified Code(s): J96.12 - Chronic respiratory failure with hypercapnia Code(s): J96.90 - Respiratory failure, unspecified, unspecified whether with hypoxia or hypercapnia Status: Chronic Assessment and Plan: Continues on mechanical ventilator with tracheostomy. (7) Protein-calorie malnutrition, severe: Code(s): E43 - Unspecified severe protein-calorie malnutrition Status: Acute Assessment and Plan: Continue TPN until bowel function returns postop (8) Paroxysmal atrial fibrillation: Code(s): I48.0 - Paroxysmal atrial fibrillation Status: Chronic Assessment and Plan: May resume full anticoagulation from surgical standpoint. However with low hemoglobin and hematocrit, probably prudent to hold off until this stabilizes or improves. Discuss this with Dr. Peacock. Subjective Subjective Date/Time Seen: 09/08/23 15:31 Post Op day: 4 Patient reports: pain is less, no bowel movement (No stool in ostomy bag) and fever (Fever to 38.2 last night. Has been down and normal for several hours sense.) Interval history: Remains on tracheostomy and ventilator. Nonverbal but does respond nonverbally to questions. Says abdominal pain is better. Also says he feels better. Exam Const: General: comfortable, no acute distress and awake GI: Inspection: Abdominal wall edema, incision (Dry and healing well) and other (Stoma pink and healthy, minimal liquid stool in bag) GI Palp: Yes Firmness to palpation present (GI), Yes Tenderness to palpation present (GI) (Mild tenderness), No Guarding due to palpation present (GI) and No Rebound tenderness present Auscultation: Hypoactive bowel sounds present : Male General Exam: Yes edema Penis: Yes normal penis (Minimal edema) Scrotum: edematous (Stable) Urinary Catheter: Urinary Catheter: patent and draining Objective Data Vital Signs Vital Signs: Vital Signs - 24 hr 09/07/23 16:00 09/07/23 16:33 09/07/23 16:00 Temperature 36.8 C 37.3 C Pulse Rate 99 Respiratory Rate 29 H Blood Pressure 122/64 Pulse Oximetry 95 Oxygen Delivery Fraction of Inspired Oxygen 30 09/07/23 16:00 09/07/23 17:00 09/07/23 17:45 Temperature 38.2 C H Pulse Rate 108 H Respiratory Rate Blood Pressure Pulse Oximetry 95 95 Oxygen Delivery Mechanical Ventilation Mechanical Ventilation Fraction of
[2023-09-08] MEDS: SODIUM CHLORIDE 0.9% IV 250 ML 30 ML IV CONT (16:07)
[2023-09-08 17:53] LABS: Glucose Point of Care 126 mg/dl (65-105)
[2023-09-09] VITALS (20 sets, daily range): BP systolic 111–137; BP diastolic 69–81; PULSE 86–112; RESP 24–30; TEMP 37–37.5; O2SAT 95–97
[2023-09-09 00:30] LABS: Glucose Point of Care 122 mg/dl (65-105)
[2023-09-09] MEDS: ALBUMIN HUMAN 25% 25 GM/100 ML 100 ML IVPB ×5 (00:33→23:47)
[2023-09-09] MEDS: CENTRAL LINE FLUSH 10 ML IV PUSH ×3 (05:26→20:27)
[2023-09-09] MEDS: LEVOTHYROXINE SODIUM INJ 100 MCG/5 ML VIAL 50 MCG IV PUSH (05:28)
[2023-09-09 05:33] LABS: Hematocrit 27.7 % (42.0-52.0); Hemoglobin 7.3 g/dL (14.0-18.0); Mean Corpuscular HGB Conc 26.4 g/dl (32-36); Mean Corpuscular Hemoglobin 30.2 pg (26-34); Mean Corpuscular Volume 114.5 fl (80-100); Mean Platelet Volume 11.4 fl (7.4-10.4); Platelet Count Result 190 k/mm3 (150-375); Red Blood Count 2.42 M/mm3 (4.6-6.20); Red Cell Distribution Width 16.6 % (11.5-14.5); White Blood Count 11.7 K/mm3 (4.5-10.0)
--- NOTE | 2023-09-09 06:39 | PM.PNGS ---
Progress Note: A&P Assessment and Plan (1) S/P partial colectomy: Code(s): Z90.49 - Acquired absence of other specified parts of digestive tract Status: Acute Assessment and Plan: Await return bowel function. Still distended and no bowel sounds. 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 (5) Respiratory failure: Qualifiers: Chronicity: chronic Respiratory failure complication: hypercapnia Qualified Code(s): J96.12 - Chronic respiratory failure with hypercapnia Code(s): J96.90 - Respiratory failure, unspecified, unspecified whether with hypoxia or hypercapnia Status: Chronic Assessment and Plan: Cuff leaking on tracheostomy. Sat still good and stable on vent (6) Protein-calorie malnutrition, severe: Code(s): E43 - Unspecified severe protein-calorie malnutrition Status: Acute Assessment and Plan: Continue TPN. Subjective Subjective Date/Time Seen: 09/09/23 06:39 Post Op day: #6 Patient reports: no bowel movement (Minimal output from stoma) and afebrile Exam Const: General: lethargic and tired appearing HENMT: Throat: other (Cuff problems with tracheostomy tube. Leaking air) GI: Inspection: distended, incision (Healing) and other (Stoma looks good, no air or stool in bag) GI Palp: Yes Firmness to palpation present (GI) and Yes Tenderness to palpation present (GI) Auscultation: absent bowel sounds Objective Data Vital Signs Vital Signs: Vital Signs - 24 hr 09/08/23 07:42 09/08/23 08:00 09/08/23 08:00 Temperature 37.5 C Pulse Rate 95 100 Respiratory Rate 30 H Blood Pressure 113/65 Pulse Oximetry 97 97 Oxygen Delivery Mechanical Ventilation Fraction of Inspired Oxygen 30 30 09/08/23 08:00 09/08/23 08:00 09/08/23 10:00 Temperature Pulse Rate 89 100 Respiratory Rate Blood Pressure Pulse Oximetry 97 Oxygen Delivery Mechanical Ventilation Fraction of Inspired Oxygen 30 09/08/23 10:00 09/08/23 11:27 09/08/23 12:00 Temperature 37.3 C 37.0 C Pulse Rate 92 92 89 Respiratory Rate 24 H 28 H Blood Pressure 102/63 111/62 Pulse Oximetry 97 97 97 Oxygen Delivery Mechanical Ventilation Fraction of Inspired Oxygen 30 09/08/23 12:00 09/08/23 12:00 09/08/23 12:00 Temperature Pulse Rate 107 H Respiratory Rate Blood Pressure Pulse Oximetry 97 Oxygen Delivery Mechanical Ventilation Fraction of Inspired Oxygen 30 30 09/08/23 13:38 09/08/23 14:00 09/08/23 14:00 Temperature 37.0 C Pulse Rate 89 95 98 Respiratory Rate 24 H Blood Pressure 102/61 Pulse Oximetry 98 97 Oxygen Delivery Mechanical Ventilation Fraction of Inspired Oxygen 30 09/08/23 16:07 09/08/23 16:00 09/08/23 16:00 Temperature 37.1 C 36.9 C Pulse Rate 93 100 Respiratory Rate 26 H 18 Blood Pressure 114/66 114/66 Pulse Oximetry 97 97 Oxygen Delivery Fraction of Inspired Oxygen 30 09/08/23 16:00 09/08/23 16:22 09/08/23 16:42 Temperature 37.1 C Pulse Rate 93 89 Respiratory Rate 28 H Blood Pressure 119/64 Pulse Oximetry 98 98 98 Oxygen Delivery Mechanical Ventilation Mechanical Ventilation Fraction of Inspired Oxygen 30 30 09/08/23 17:22 09/08/23 16:00 09/08/23 18:00 Temperature 37.1 C Pulse Rate 102 H 97 88 Respiratory Rate 29 H Blood Pr
[2023-09-09] MEDS: ASPIRIN 81 MG CHEWABLE TABLET 162 MG PO (08:43)
[2023-09-09] MEDS: SODIUM CHLORIDE 1 GM TABLET PO ×2 (08:43→17:41)
[2023-09-09] MEDS: PANTOPRAZOLE SODIUM IV 40 MG VIAL IV PUSH (08:43)
[2023-09-09] MEDS: CEFEPIME 1 GM/NS 50 ML 1 GM/50 ML BAG IVPB (08:44)
[2023-09-09] MEDS: MINERAL OIL/WHITE PETROLATUM OINTMENT 1 APPLIC EACH EYE ×2 (08:46→20:27)
[2023-09-09] MEDS: COLLAGENASE OINT 30 GM TUBE 1 APPLIC TOPICAL (08:46)
[2023-09-09] MEDS: BUMETANIDE INJ 2.5 MG/10 ML VIAL 2 MG IV PUSH (08:47)
[2023-09-09 09:36] LABS: Alanine Aminotransferase 23 U/L (6-50); Albumin Level 3.4 g/dL (3.5-5.1); Alkaline Phosphatase 157 U/L (38-126); Anion Gap 10 mmol/L (8-16); Aspartate Amino Transferase 39 U/L (17-59); Bilirubin,Total 1.6 mg/dL (0.2-1.3); Blood Urea Nitrogen 73 mg/dL (9-20); Calcium 8.5 mg/dL (8.4-10.2); Carbon Dioxide 17 mmol/L (22-30); Chloride 106 mmol/L (98-107); Estimated CRCL calculation 23 ml/min; Estimated Glomerular Filt Rate 20; Glucose 145 mg/dL (65-110); Magnesium 2.5 mg/dL (1.6-2.3); Potassium 4.2 mmol/L (3.4-5.0); Sodium 133 mmol/L (137-145); Triglycerides 267 mg/dL (<150)
--- NOTE | 2023-09-09 09:54 | P.PNNP_ITS ---
Progress Note: A&P Assessment and Plan (1) MOISÉS (acute kidney injury): Code(s): N17.9 - Acute kidney failure, unspecified Status: Acute Assessment and Plan: * multiple episodes noted since admission * multifactorial issues present: * prerenal factors * relative hypotension (sometimes as low as 80s systolic) * ongoing use of ARB (losartan) * previous IV ibuprofen use * contrast exposure (CT scan on 08/04/23) * recurrent infection/sepsis (suspect major component) * evaluation during this hospital stay: * renal ultrasound okay * urine electrolytes prerenal * urine eosinophils negative * CPK mildly elevated (but not likely to affect kidney function) * rising BUN and creatinine noted but good urine output noted * follow trend of repeat labs and UOP * 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/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 (2) Sepsis: Qualifiers: Sepsis type: sepsis due to unspecified organism Sepsis acute organ dysfunction status: with acute organ dysfunction Severe sepsis acute organ dysfunction type: acute renal failure Acute renal failure type: unspecified Severe sepsis shock status: without septic shock Qualified Code(s): A41.9 - Sepsis, unspecified organism; R65.20 - Severe sepsis without septic shock; N17.9 - Acute kidney failure, unspecified Code(s): A41.9 - Sepsis, unspecified organism Status: Acute Assessment and Plan: * remains hemodynamically stable * multiple issues/etiologies: * recurrent abdominal abscesses as noted by imaging * peritonitis (see recent ascites fluid cultures) * previous cholecystitis * previous pneumonia * extensive culture data noted * on antibiotics (3) Acute respiratory failure: Qualifiers: Respiratory failure complication: hypoxia and hypercapnia Qualified Code(s): J96.01 - Acute respiratory failure with hypoxia; J96.02 - Acute respiratory failure with hypercapnia Code(s): J96.00 - Acute respiratory failure, unspecified whether with hypoxia or hypercapnia Status: Acute Assessment and Plan: * s/p tracheostomy for prolonged ventilator weaning * complicated by weakness and severe deconditioning * PRN diuretics to maintain volume status * continue weaning trial as tolerated (4) Pelvic abscess in male: Code(s): K65.1 - Peritoneal abscess Status: Acute Assessment and Plan: * previous drains removed * s/p sigmoidectomy with end descending colostomy and Willy procedure (done on 09/04) * on antibiotics * follow-up on repeat imaging (5) Decubitus ulcer: Code(s): L89.90 - Pressure ulcer of unspecified site, unspecified stage Status: Acute Assessment and Plan: * s/p debridement and diverting colostomy * local wound care * Surgery following (6) Anemia: Qualifiers: Anemia type: other cause Other causes of anemia: chronic disease, other Qualified Code(s): D63.8 - Anemia in other chronic diseases classified elsewhere Code(s): D64.9 - Anemia, unspecified Status: Acute Assessment and Plan: * due to operative interventions, acute illness and MOISÉS * PRBC transfusion per protocol * follow trend of H/H Long extensive discussion (greater than 20 min) with the patient's and daughter at bedside regarding his recent acute insult to his kidneys likely precipitated by his recent operative intervention as he is been known to be susceptible to this issue whenever he has surgical procedures done and the hope that ongoing supportive therapy and continued aggressive medical care will
--- NOTE | 2023-09-09 09:54 | PM.PNNEP ---
Progress Note: A&P Assessment and Plan (1) MOISÉS (acute kidney injury): Code(s): N17.9 - Acute kidney failure, unspecified Status: Acute Assessment and Plan: multiple episodes noted since admission multifactorial issues present: prerenal factors relative hypotension (sometimes as low as 80s systolic) ongoing use of ARB (losartan) previous IV ibuprofen use contrast exposure (CT scan on 08/04/23) recurrent infection/sepsis (suspect major component) evaluation during this hospital stay: renal ultrasound okay urine electrolytes prerenal urine eosinophils negative CPK mildly elevated (but not likely to affect kidney function) rising BUN and creatinine noted but good urine output noted follow trend of repeat labs and UOP 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 (2) Sepsis: Qualifiers: Sepsis type: sepsis due to unspecified organism Sepsis acute organ dysfunction status: with acute organ dysfunction Severe sepsis acute organ dysfunction type: acute renal failure Acute renal failure type: unspecified Severe sepsis shock status: without septic shock Qualified Code(s): A41.9 - Sepsis, unspecified organism; R65.20 - Severe sepsis without septic shock; N17.9 - Acute kidney failure, unspecified Code(s): A41.9 - Sepsis, unspecified organism Status: Acute Assessment and Plan: remains hemodynamically stable multiple issues/etiologies: recurrent abdominal abscesses as noted by imaging peritonitis (see recent ascites fluid cultures) previous cholecystitis previous pneumonia extensive culture data noted on antibiotics (3) Acute respiratory failure: Qualifiers: Respiratory failure complication: hypoxia and hypercapnia Qualified Code(s): J96.01 - Acute respiratory failure with hypoxia; J96.02 - Acute respiratory failure with hypercapnia Code(s): J96.00 - Acute respiratory failure, unspecified whether with hypoxia or hypercapnia Status: Acute Assessment and Plan: s/p tracheostomy for prolonged ventilator weaning complicated by weakness and severe deconditioning PRN diuretics to maintain volume status continue weaning trial as tolerated (4) Pelvic abscess in male: Code(s): K65.1 - Peritoneal abscess Status: Acute Assessment and Plan: previous drains removed s/p sigmoidectomy with end descending colostomy and Willy procedure (done on 09/04) on antibiotics follow-up on repeat imaging (5) Decubitus ulcer: Code(s): L89.90 - Pressure ulcer of unspecified site, unspecified stage Status: Acute Assessment and Plan: s/p debridement and diverting colostomy local wound care Surgery following (6) Anemia: Qualifiers: Anemia type: other cause Other causes of anemia: chronic disease, other Qualified Code(s): D63.8 - Anemia in other chronic diseases classified elsewhere Code(s): D64.9 - Anemia, unspecified Status: Acute Assessment and Plan: due to operative interventions, acute illness and MOISÉS PRBC transfusion per protocol follow trend of H/H Long extensive discussion (greater than 20 min) with the patient's and daughter at bedside regarding his recent acute insult to his kidneys likely precipitated by his recent operative intervention as he is been known to be susceptible to this issue whenever he has surgical procedures done and the hope that ongoing supportive therapy and continued aggressive medical care will result in resolution of his MOISÉS/ARF as it has done so in the past. They appeared to voice understanding. Will continue to follow. Subjective Date/time seen: 09/09/23 09:54 Interval history: Follow-up for acute kidney injury/acute renal failure. Remains on mechanical ventilation via tracheostomy; renal function/creatinine worse by AM labs but still making urine (albeit with the use of IV diuretics); stable hemodynamics noted;
--- NOTE | 2023-09-09 11:22 | PCFNICU ---
Addendum entered by Prachi Ballesteros RD, BENJAMINN 09/09/23 11:23: ICU Rounding Note: Pt current nutrition is TPN Clinmix 5/15/E with lipids @ 80 ml/h: 1863 kcal (~92% EER), 96 g protein (~99% estimated protein needs). Nutrition recommendation: Continue current TPN orders. If triglycerides remain elevated, may recommend decreasing frequency of lipid infusion to every other day, Last recorded weight is 124.6 kg. Bowel Motility: Minimal output to colostomy stoma. Bowel sounds absent Labs Reviewed: Hgb 7.3, Hct 27.7, Alb 3.4, GFR 20, BUN 73, Cre 3.0, Glu 122, TRIG 267 Meds Noted: Protonix, Heparin Skin: No pressure injury. Incision to abdomen Additional Notes: Remains on TPN. No bowel sounds yet. Continue current orders. Following daily in ICU rounds. Will montior weight, labs, skin, meds, TPN every Saturday and Saturday. . Original Note: ICU Rounding Note: Pt current nutrition is TPN Clinmix 5/15/E with lipids. Nutrition recommendation: Last recorded weight is 124.6 kg. Bowel Motility: Labs Reviewed: Meds Noted: Skin: Additional Notes: Following daily in ICU rounds. Will montior weight, labs, skin, meds, TPN every Saturday and Saturday. .
--- NOTE | 2023-09-09 12:02 | WPDINTPN ---
Progress Note: A&P Assessment and Plan (1) Acute respiratory failure: Qualifiers: Respiratory failure complication: hypoxia and hypercapnia Qualified Code(s): J96.01 - Acute respiratory failure with hypoxia; J96.02 - Acute respiratory failure with hypercapnia Code(s): J96.00 - Acute respiratory failure, unspecified whether with hypoxia or hypercapnia Status: Acute Assessment and Plan: Acute hypoxic and hypercarbic respiratory failure. Chest x-ray shows diffuse lung disease most likely which improved with diuretics. ABG chest x-ray and ventilator settings reviewed this morning 08/17 Patient placed on PSV but failed quickly due to high RSBI. PSV increased to 15/8 to get adequate RSBI. Patient tolerated that for many hours It appears the patient is severely deconditioned and weak 08/18 will re try PSV again today. Continue Bumex to manage the fluid balance 08/19 patient placed on PSV again today. Patient either had low rate on high pressure support or low tidal volume lower pressure support. I was able to get adequate RSBI on 06/30. This is better than what he has done in the past but still good enough for extubation. I will continue pressure support ventilation as tolerated through the day and try to wean down pressure support. 08/20 patient placed on PSV again and can only get adequate RSBI on 06/30. If extubated patient will need and NIPPV which because of his deconditioning and fluctuating mental status may not be good option. Will continue PSV as tolerated today Antibiotics as below Low tidal volume management -08/21, patient placed on pressure support ventilation 08/27, respiratory rate was low with decreased tidal volumes, placed on ASV mode, patient's respiratory rate remained low patient was placed back on CMV mode, will try again today -08/22: Patient tolerated PSV 10/5 for approximately 6-7 hours after which the tidal volumes were low, patient seemed to be tired and weak and was placed on CMV mode 08/23: Tolerated PSV 8/5 for approximately 3 hours, and had to be placed on CMV mode as dropped his tidal volumes and was tachypneic 08/24: Patient tolerated PSV 10/5 for few hours and had increased work of breathing and decrease tidal volumes so was placed back on CMV mode -08/25: Tolerated pressure support ventilation 10/5 all day long and was switched to ASV overnight -08/26: Tolerated PSV 10/5 for a few hours and had to be placed back on CMV mode of ventilation -08/27: Discuss with family, surgery, does not seem that the patient is going to come off the ventilator since he is not tolerating appropriate spontaneous breathing trial. Discussed with them regarding tracheostomy to which the family and the surgeon are agreeable. ENT has been consulted and tracheostomy scheduled for 08/30 Continue Bumex as needed to keep balance even 08/28 did not tolerate PSV for prolonged period of time 08/30 patient now status post tracheostomy. 08/31 patient placed on PSV but only tolerated for some time as patient kept on going into apnea ventilation and switching SIMV mode. 09/02 tolerated PSV till 7:00 p.m. with intermittent low respirator alarms 09/03 patient was trialed on PSV but patient kept on going into apnea ventilation and low tidal volume. he was switched back to CMV 09/05 patient did not tolerate PSV due to tachypnea and low tidal volumes 09/06 peep increased to 10 to minimize atelectasis 09/09 patient appears to have developed a leak in his tracheostomy cuff. He has been requiring periodic reinflation of the cuff. I have spoken to Dr. Mendez with ENT he will change the trach tube later today. Patient otherwise is stable with adequate tidal volumes and saturation with no respiratory distress. Monitor closely (2) Sepsis: Qualifiers: Acute renal failure type: unspecified Sepsis acute organ dysfunction status: with acute organ dysfunction Sepsis type: sepsis due to unspecified organism Severe sepsis acute organ dys
[2023-09-09] MEDS: FLUCONAZOLE 200 MG/NACL 100 ML 200 MG/100 ML BAG 100 MG IVPB (12:06)
[2023-09-09 12:28] LABS: Glucose Point of Care 138 mg/dl (65-105)
[2023-09-09] MEDS: FAT EMULSIONS IV 20% 250 ML 20.8 ML IVPB (14:59)
[2023-09-09] MEDS: AMINO ACIDS 5%/D15W/E-LYTES/CA 2,000 ML with MULTIVITAMINS-12 INJ VIAL 1 2.5 ML, MULTIV... 80 ML IV CONT (14:59)
[2023-09-09 16:55] LABS: Hematocrit 27.5 % (42.0-52.0); Hemoglobin 8.7 g/dL (14.0-18.0); Mean Corpuscular HGB Conc 31.6 g/dl (32-36); Mean Corpuscular Hemoglobin 30.3 pg (26-34); Mean Corpuscular Volume 95.8 fl (80-100); Mean Platelet Volume 11.3 fl (7.4-10.4); Platelet Count Result 217 k/mm3 (150-375); Red Blood Count 2.87 M/mm3 (4.6-6.20); Red Cell Distribution Width 15.7 % (11.5-14.5); White Blood Count 13.1 K/mm3 (4.5-10.0)
--- NOTE | 2023-09-09 18:19 | P.PCNBED_ITS ---
Procedures Other Procedures Procedure 1: Other Procedure: Trach change. Consent obtained by family. Cuff was tested on the new trach. Patient is correctly position. Old trach cuff deflated trach removed trachea suctioned new trach position cuff inflated upper inner removed inner cannula pl aced patient connected to vent. Respiratory confirmed end-tidal CO2. No complications. Trach ties tightly placed. Patient tolerated the procedure well.
[2023-09-09 18:21] LABS: Glucose Point of Care 132 mg/dl (65-105)
[2023-09-10] VITALS (25 sets, daily range): BP systolic 98–132; BP diastolic 65–79; PULSE 85–120; RESP 20–30; TEMP 37.7–38.2; O2SAT 93–99
[2023-09-10 00:08] LABS: Glucose Point of Care 139 mg/dl (65-105)
[2023-09-10 04:48] LABS: Hematocrit 26.5 % (42.0-52.0); Hemoglobin 8.4 g/dL (14.0-18.0); Mean Corpuscular HGB Conc 31.7 g/dl (32-36); Mean Corpuscular Hemoglobin 30.2 pg (26-34); Mean Corpuscular Volume 95.3 fl (80-100); Mean Platelet Volume 11.2 fl (7.4-10.4); Platelet Count Result 222 k/mm3 (150-375); Red Blood Count 2.78 M/mm3 (4.6-6.20); Red Cell Distribution Width 15.8 % (11.5-14.5); White Blood Count 12.6 K/mm3 (4.5-10.0)
[2023-09-10 04:58] LABS: Alanine Aminotransferase 35 U/L (6-50); Albumin Level 3.7 g/dL (3.5-5.1); Alkaline Phosphatase 181 U/L (38-126); Anion Gap 12 mmol/L (8-16); Aspartate Amino Transferase 59 U/L (17-59); Bilirubin,Total 1.8 mg/dL (0.2-1.3); Blood Urea Nitrogen 83 mg/dL (9-20); Calcium 9.1 mg/dL (8.4-10.2); Carbon Dioxide 17 mmol/L (22-30); Chloride 106 mmol/L (98-107); Estimated CRCL calculation 24 ml/min; Estimated Glomerular Filt Rate 20; Glucose 145 mg/dL (65-110); Magnesium 2.5 mg/dL (1.6-2.3); Potassium 4.2 mmol/L (3.4-5.0); Sodium 135 mmol/L (137-145)
[2023-09-10 05:16] LABS: Band Neutrophils Percent 4 % (0-6); Basophils Absolute Manual 0.12 K/mm3 (0.0-0.1); Basophils Percent Manual 1 % (0-1); Eosinophils Absolute Manual 0.63 K/mm3 (0.02-0.5); Eosinophils Percent Manual 5 % (0-4); Monocytes Absolute Manual 0.25 K/mm3 (0.1-0.90); Monocytes Percent Manual 2 % (3-9); Neutrophils Absolute Manual 10.58 K/mm3 (1.3-6.7); Neutrophils Percent Manual 80 % (46-73); Nucleated Red Blood Cells 2 %; Platelet Estimate Adequate (Adequate); Smudge Cells PRESENT; Total Cells Counted 100
[2023-09-10 05:17] LABS: Anisocytosis 1+ (NORMAL); Large Platelets Present; Schistocytes None Seen (NORMAL)
[2023-09-10] MEDS: ALBUMIN HUMAN 25% 25 GM/100 ML 100 ML IVPB ×3 (05:49→17:02)
[2023-09-10] MEDS: LEVOTHYROXINE SODIUM INJ 100 MCG/5 ML VIAL 50 MCG IV PUSH (05:58)
[2023-09-10] MEDS: CENTRAL LINE FLUSH 10 ML IV PUSH ×3 (05:59→20:21)
[2023-09-10 07:43] LABS: Alveolar/Arterial O2 Gradient 130.2 mmHg; Base Excess ABG -7.3 mEq/l (+/-2.0); Fractional Inspired Oxygen 30 %; HCO3 ABG 17.6 mEq/l (22.0-26.0); Oxygen Content ABG 13.4 %vol (16.0-22.0); Oxygen Saturation ABG 97.9 % (95.0-100.0); Oxyhemoglobin 96.7 % THb (90.0-100.0); PCO2 ABG 33.5 mmHg (35.0-45.0); PO2 ABG 111.7 mmHg (80.0-100.0); PO2 FiO2 Ratio Arterial Blood 3.72 %; Total Hemoglobin 9.7 g/dL (12.0-18.0); pH ABG 7.339 (7.350-7.450)
[2023-09-10 07:45] LABS: Device VENTILATOR; Modified Allen's Test Pass; Site Drawn RIGHT RADIAL
[2023-09-10 07:46] LABS: Arterial Blood Gas PEEP 8 cmH2O; Arterial Blood Gas Tidal Volume 420 ml; Arterial Blood Gas Vent Mode CMV; Arterial Blood Gas Ventilator rate 15 /MIN
--- NOTE | 2023-09-10 08:25 | P.PNNP_ITS ---
Progress Note: A&P Assessment and Plan (1) MOISÉS (acute kidney injury): Code(s): N17.9 - Acute kidney failure, unspecified Status: Acute Assessment and Plan: * multiple episodes noted since admission * multifactorial issues present: * prerenal factors * relative hypotension (sometimes as low as 80s systolic) * ongoing use of ARB (losartan) * previous IV ibuprofen use * contrast exposure (CT scan on 08/04/23) * recurrent infection/sepsis (suspect major component) * evaluation during this hospital stay: * renal ultrasound okay * urine electrolytes prerenal * urine eosinophils negative * CPK mildly elevated (but not likely to affect kidney function) * rising BUN and creatinine but good urine output noted * follow trend of repeat labs and UOP * 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 (2) Sepsis: Qualifiers: Sepsis type: sepsis due to unspecified organism Sepsis acute organ dysfunction status: with acute organ dysfunction Severe sepsis acute organ dysfunction type: acute renal failure Acute renal failure type: unspecified Severe sepsis shock status: without septic shock Qualified Code(s): A41.9 - Sepsis, unspecified organism; R65.20 - Severe sepsis without septic shock; N17.9 - Acute kidney failure, unspecified Code(s): A41.9 - Sepsis, unspecified organism Status: Acute Assessment and Plan: * remains hemodynamically stable * multiple issues/etiologies: * recurrent abdominal abscesses as noted by imaging * peritonitis (see recent ascites fluid analysis - culture pending) * previous cholecystitis * previous pneumonia * extensive culture data noted * on antibiotics (3) Acute respiratory failure: Qualifiers: Respiratory failure complication: hypoxia and hypercapnia Qualified Code(s): J96.01 - Acute respiratory failure with hypoxia; J96.02 - Acute respiratory failure with hypercapnia Code(s): J96.00 - Acute respiratory failure, unspecified whether with hypoxia or hypercapnia Status: Acute Assessment and Plan: * s/p tracheostomy for prolonged ventilator weaning * complicated by weakness and severe deconditioning * PRN diuretics to maintain volume status * continue weaning trial as tolerated (4) Pelvic abscess in male: Code(s): K65.1 - Peritoneal abscess Status: Acute Assessment and Plan: * previous drains removed * s/p sigmoidectomy with end descending colostomy and Willy procedure (done on 09/04) * on antibiotics * follow-up on repeat imaging (5) Decubitus ulcer: Code(s): L89.90 - Pressure ulcer of unspecified site, unspecified stage Status: Acute Assessment and Plan: * s/p debridement and diverting colostomy * local wound care * Surgery following (6) Anemia: Qualifiers: Anemia type: other cause Other causes of anemia: chronic disease, other Qualified Code(s): D63.8 - Anemia in other chronic diseases classified elsewhere Code(s): D64.9 - Anemia, unspecified Status: Acute Assessment and Plan: * due to operative interventions, acute illness and MOISÉS * PRBC transfusion per protocol * follow trend of H/H Will continue to follow. Subjective Date/time seen: 09/10/23 08:25 Interval history: Follow-up for acute kidney injury/acute renal failure. ENT exchanged tracheostomy tube yesterday due to presence of cuff leak -- tolerated the procedure reasonably well; continues to make good urine output with RPN IV bumex; remains on
--- NOTE | 2023-09-10 08:25 | PM.PNNEP ---
Progress Note: A&P Assessment and Plan (1) MOISÉS (acute kidney injury): Code(s): N17.9 - Acute kidney failure, unspecified Status: Acute Assessment and Plan: multiple episodes noted since admission multifactorial issues present: prerenal factors relative hypotension (sometimes as low as 80s systolic) ongoing use of ARB (losartan) previous IV ibuprofen use contrast exposure (CT scan on 08/04/23) recurrent infection/sepsis (suspect major component) evaluation during this hospital stay: renal ultrasound okay urine electrolytes prerenal urine eosinophils negative CPK mildly elevated (but not likely to affect kidney function) rising BUN and creatinine but good urine output noted follow trend of repeat labs and UOP 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/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 (2) Sepsis: Qualifiers: Sepsis type: sepsis due to unspecified organism Sepsis acute organ dysfunction status: with acute organ dysfunction Severe sepsis acute organ dysfunction type: acute renal failure Acute renal failure type: unspecified Severe sepsis shock status: without septic shock Qualified Code(s): A41.9 - Sepsis, unspecified organism; R65.20 - Severe sepsis without septic shock; N17.9 - Acute kidney failure, unspecified Code(s): A41.9 - Sepsis, unspecified organism Status: Acute Assessment and Plan: remains hemodynamically stable multiple issues/etiologies: recurrent abdominal abscesses as noted by imaging peritonitis (see recent ascites fluid analysis - culture pending) previous cholecystitis previous pneumonia extensive culture data noted on antibiotics (3) Acute respiratory failure: Qualifiers: Respiratory failure complication: hypoxia and hypercapnia Qualified Code(s): J96.01 - Acute respiratory failure with hypoxia; J96.02 - Acute respiratory failure with hypercapnia Code(s): J96.00 - Acute respiratory failure, unspecified whether with hypoxia or hypercapnia Status: Acute Assessment and Plan: s/p tracheostomy for prolonged ventilator weaning complicated by weakness and severe deconditioning PRN diuretics to maintain volume status continue weaning trial as tolerated (4) Pelvic abscess in male: Code(s): K65.1 - Peritoneal abscess Status: Acute Assessment and Plan: previous drains removed s/p sigmoidectomy with end descending colostomy and Willy procedure (done on 09/04) on antibiotics follow-up on repeat imaging (5) Decubitus ulcer: Code(s): L89.90 - Pressure ulcer of unspecified site, unspecified stage Status: Acute Assessment and Plan: s/p debridement and diverting colostomy local wound care Surgery following (6) Anemia: Qualifiers: Anemia type: other cause Other causes of anemia: chronic disease, other Qualified Code(s): D63.8 - Anemia in other chronic diseases classified elsewhere Code(s): D64.9 - Anemia, unspecified Status: Acute Assessment and Plan: due to operative interventions, acute illness and MOISÉS PRBC transfusion per protocol follow trend of H/H Will continue to follow. Subjective Date/time seen: 09/10/23 08:25 Interval history: Follow-up for acute kidney injury/acute renal failure. ENT exchanged tracheostomy tube yesterday due to presence of cuff leak -- tolerated the procedure reasonably well; continues to make good urine output with RPN IV bumex; remains on mechanical ventilation via tracheostomy tube; low grade temperatures in the last 24 hours. Exam Narrative: General: elderly but WD/WN male in NAD Heart: IRRR, normal S1 and S2; no rub Lungs: coarse breath sounds Abdomen: mild distension with decreased bowel sounds; colostomy noted in LLQ Extremities: no cyanosis or clubbing; trace edema Skin: no rash; chronic venous stasis changes in LEs Objective Data Vital Signs Vital Signs: Vital Signs
[2023-09-10] MEDS: SODIUM CHLORIDE 1 GM TABLET PO ×2 (08:54→17:02)
[2023-09-10] MEDS: CEFEPIME 1 GM/NS 50 ML 1 GM/50 ML BAG IVPB (08:54)
[2023-09-10] MEDS: ASPIRIN 81 MG CHEWABLE TABLET 162 MG PO (08:54)
[2023-09-10] MEDS: PANTOPRAZOLE SODIUM IV 40 MG VIAL IV PUSH ×2 (08:55→20:21)
--- NOTE | 2023-09-10 09:20 | WPDINTPN ---
Progress Note: A&P Assessment and Plan (1) Acute respiratory failure: Qualifiers: Respiratory failure complication: hypoxia and hypercapnia Qualified Code(s): J96.01 - Acute respiratory failure with hypoxia; J96.02 - Acute respiratory failure with hypercapnia Code(s): J96.00 - Acute respiratory failure, unspecified whether with hypoxia or hypercapnia Status: Acute Assessment and Plan: Acute hypoxic and hypercarbic respiratory failure. Chest x-ray shows diffuse lung disease most likely which improved with diuretics. ABG chest x-ray and ventilator settings reviewed this morning 08/17 Patient placed on PSV but failed quickly due to high RSBI. PSV increased to 15/8 to get adequate RSBI. Patient tolerated that for many hours It appears the patient is severely deconditioned and weak 08/18 will re try PSV again today. Continue Bumex to manage the fluid balance 08/19 patient placed on PSV again today. Patient either had low rate on high pressure support or low tidal volume lower pressure support. I was able to get adequate RSBI on 06/30. This is better than what he has done in the past but still good enough for extubation. I will continue pressure support ventilation as tolerated through the day and try to wean down pressure support. 08/20 patient placed on PSV again and can only get adequate RSBI on 06/30. If extubated patient will need and NIPPV which because of his deconditioning and fluctuating mental status may not be good option. Will continue PSV as tolerated today Antibiotics as below Low tidal volume management -08/21, patient placed on pressure support ventilation 08/27, respiratory rate was low with decreased tidal volumes, placed on ASV mode, patient's respiratory rate remained low patient was placed back on CMV mode, will try again today -08/22: Patient tolerated PSV 10/5 for approximately 6-7 hours after which the tidal volumes were low, patient seemed to be tired and weak and was placed on CMV mode 08/23: Tolerated PSV 8/5 for approximately 3 hours, and had to be placed on CMV mode as dropped his tidal volumes and was tachypneic 08/24: Patient tolerated PSV 10/5 for few hours and had increased work of breathing and decrease tidal volumes so was placed back on CMV mode -08/25: Tolerated pressure support ventilation 10/5 all day long and was switched to ASV overnight -08/26: Tolerated PSV 10/5 for a few hours and had to be placed back on CMV mode of ventilation -08/27: Discuss with family, surgery, does not seem that the patient is going to come off the ventilator since he is not tolerating appropriate spontaneous breathing trial. Discussed with them regarding tracheostomy to which the family and the surgeon are agreeable. ENT has been consulted and tracheostomy scheduled for 08/30 Continue Bumex as needed to keep balance even 08/28 did not tolerate PSV for prolonged period of time 08/30 patient now status post tracheostomy. 08/31 patient placed on PSV but only tolerated for some time as patient kept on going into apnea ventilation and switching SIMV mode. 09/02 tolerated PSV till 7:00 p.m. with intermittent low respirator alarms 09/03 patient was trialed on PSV but patient kept on going into apnea ventilation and low tidal volume. he was switched back to CMV 09/05 patient did not tolerate PSV due to tachypnea and low tidal volumes 09/06 peep increased to 10 to minimize atelectasis 09/09 patient appears to have developed a leak in his tracheostomy cuff. NEW TRACHEOSTOMY was inserted by ENT on 09/09 09/10: Placed patient on pressure support ventilation 06/05, will continue to wean PSV as tolerated by patient (2) Sepsis: Qualifiers: Acute renal failure type: unspecified Sepsis acute organ dysfunction status: with acute organ dysfunction Sepsis type: sepsis due to unspecified organism Severe sepsis acute organ dysfunction type: acute renal failure Severe sepsis shock status: without septic shock Qualified Co
[2023-09-10] MEDS: ACETAMINOPHEN ELIXIR 325 MG/10.15 ML UDC 650 MG FEED TUBE ×2 (09:35→19:48)
--- NOTE | 2023-09-10 09:35 | PM.PNGS ---
Progress Note: A&P Assessment and Plan (1) S/P partial colectomy: Code(s): Z90.49 - Acquired absence of other specified parts of digestive tract Status: Acute Assessment and Plan: Patient very edematous and abdomen pretty tight with evidence of edema. No bowel function as yet. No air or stool in stoma. If no colostomy output tomorrow, will consider colostomy irrigation. (2) Colostomy status: Code(s): Z93.3 - Colostomy status Status: Acute Assessment and Plan: Looks pink and healthy. 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 Fecal stream has been diverted. (4) Anemia: Qualifiers: Anemia type: other cause Other causes of anemia: chronic disease, other Qualified Code(s): D63.8 - Anemia in other chronic diseases classified elsewhere Code(s): D64.9 - Anemia, unspecified Status: Acute Assessment and Plan: Only slightly lower than yesterday's H&H. No evidence of bleeding. Probably will improve with diuresis. (5) Respiratory failure: Qualifiers: Chronicity: chronic Respiratory failure complication: hypercapnia Qualified Code(s): J96.12 - Chronic respiratory failure with hypercapnia Code(s): J96.90 - Respiratory failure, unspecified, unspecified whether with hypoxia or hypercapnia Status: Chronic Assessment and Plan: ABGs look great. Too weak to come off the vent although will be taking some breaths on his own. Discussed with Dr. Whitfield. (6) MOISÉS (acute kidney injury): Code(s): N17.9 - Acute kidney failure, unspecified Status: Acute Assessment and Plan: Creatinine stable at 3.0 today. Had a lot more urine output later in the day yesterday and last night. BUN still rising-83 today. (7) Protein-calorie malnutrition, severe: Code(s): E43 - Unspecified severe protein-calorie malnutrition Status: Acute Assessment and Plan: Continue TPN. TPN may be contributing to uremia. Elevated triglycerides noted. May need to change lipids to every other day. Subjective Subjective Date/Time Seen: 09/10/23 09:35 Post Op day: #6 Patient reports: no flatus (No flatus or stool in stoma bag), fever (38.1) and other (More sleepy this morning, still on vent via tracheostomy.) Review of Systems Review of Systems: ROS unobtainable: Yes unobtainable due to medical condition Exam Const: General: comfortable, no acute distress, lethargic and tired appearing Nutritional Appearance: edematous GI: Inspection: Abdominal wall edema, distended and incision (Dry and intact, some skin weeping from edema) GI Palp: Yes Firmness to palpation present (GI), No Tenderness to palpation present (GI) and Yes Ascites present (700 cc drained with ultrasound guidance yesterday.) Auscultation: absent bowel sounds Objective Data Vital Signs Vital Signs: Vital Signs - 24 hr 09/09/23 10:30 09/09/23 10:00 09/09/23 12:00 Temperature Pulse Rate 100 94 94 Respiratory Rate Blood Pressure Pulse Oximetry 97 Oxygen Delivery Mechanical Ventilation Fraction of Inspired Oxygen 30 09/09/23 12:00 09/09/23 14:00 09/09/23 12:00 Temperature Pulse Rate 90 Respiratory Rate Blood Pressure Pulse Oximetry 97 Oxygen Delivery Mechanical Ventilation Fraction of Inspired Oxygen 30 30 09/09/23 13:15 09/09/23 10:00 09/09/23 12:00 Temperature Pulse Rate 95 97 97 Respiratory Rate 30 H 28 H Blood Pressure 126/75 119/72 Pulse Oximetry 97 97 97 Oxygen Delivery Mechanical Ventilation Fraction of Inspired Oxygen 30 09/09/23 14:00 09/09/23 16:15 09/09/23 16:00 Temperature 37.0 C 37.1 C Pulse Rate 99 97 96 Respiratory Rate 30 H 27 H Blood Pressure 129/81 123/69 Pulse Oximetry 97 96 96 Oxygen Delivery Mechanical Ventilation Fraction of Inspired Oxygen 30 09/09/23 18
[2023-09-10] MEDS: COLLAGENASE OINT 30 GM TUBE 1 APPLIC TOPICAL (10:29)
[2023-09-10] MEDS: MINERAL OIL/WHITE PETROLATUM OINTMENT 1 APPLIC EACH EYE ×2 (10:29→20:21)
--- NOTE | 2023-09-10 10:49 | PCNFU ---
Nutrition Follow-Up Complete: Swallowing Difficulties as related to mentation/risk of aspiration as evidenced by NPO. Goal: Meet estimated nutritional needs patient will continue current goal. Pt current nutrition is TPN. Last recorded weight is 127.6 kg. Bowel Motility: Colostomy minimal output noted. Discussions regarding possible irrigation of colostomy if output does not improve. Labs Reviewed:Glu 145, Cr 3.0,GFR 20, BUN 83, Na 135, Hct 26.5,Hgb 8.4 Meds Noted:Protonix, Clinimix E 5/15 at 80 ml/hr with 250 ml of 20% Lipid Emulsions, Bumex, Lovenox, Diflucan. Skin: WNL Additional Notes:Patient current with Trach. Paracentesis noted 09/09-700 ml removed. TG noted at 267. If TG remain elevated would recommend every other day on Lipid Emulsion. Current TPN providing 1863 kcals/96 gms protein. If tube feedings would start recommend Vital AF 1.2 at 20 ml/hr. Will monitor in ICU rounds and reassess weight, labs, skin, meds, TPN every Saturday and Saturday.
[2023-09-10 11:55] LABS: Glucose Point of Care 162 mg/dl (65-105)
[2023-09-10] MEDS: FLUCONAZOLE 200 MG/NACL 100 ML 200 MG/100 ML BAG 100 MG IVPB (12:17)
[2023-09-10] MEDS: FAT EMULSIONS IV 20% 250 ML 20.8 ML IVPB (14:29)
[2023-09-10] MEDS: AMINO ACIDS 5%/D15W/E-LYTES/CA 2,000 ML with MULTIVITAMINS-12 INJ VIAL 1 2.5 ML, MULTIV... 80 ML IV CONT (14:29)
[2023-09-10 18:12] LABS: Glucose Point of Care 127 mg/dl (65-105)
[2023-09-10] MEDS: HYDROmorphone HCL INJ (*CRX) 1 MG/ML SYR 0.5 MG IV PUSH (19:45)
[2023-09-10 23:49] LABS: Glucose Point of Care 142 mg/dl (65-105)
[2023-09-11] VITALS (27 sets, daily range): BP systolic 101–134; BP diastolic 61–82; PULSE 83–114; RESP 17–30; TEMP 37.6–38.6; O2SAT 92–99
[2023-09-11] MEDS: ALBUMIN HUMAN 25% 25 GM/100 ML 100 ML IVPB ×5 (00:10→23:09)
[2023-09-11] MEDS: HYDROmorphone HCL INJ (*CRX) 1 MG/ML SYR 0.5 MG IV PUSH ×3 (02:22→20:24)
[2023-09-11 04:50] LABS: Hematocrit 25.6 % (42.0-52.0); Hemoglobin 8.1 g/dL (14.0-18.0); Mean Corpuscular HGB Conc 31.6 g/dl (32-36); Mean Corpuscular Hemoglobin 29.9 pg (26-34); Mean Corpuscular Volume 94.5 fl (80-100); Mean Platelet Volume 11.2 fl (7.4-10.4); Platelet Count Result 219 k/mm3 (150-375); Red Blood Count 2.71 M/mm3 (4.6-6.20); Red Cell Distribution Width 16.1 % (11.5-14.5); White Blood Count 11.5 K/mm3 (4.5-10.0)
[2023-09-11] MEDS: CENTRAL LINE FLUSH 10 ML IV PUSH ×3 (05:05→20:25)
[2023-09-11 05:25] LABS: Alanine Aminotransferase 62 U/L (6-50); Albumin Level 3.7 g/dL (3.5-5.1); Alkaline Phosphatase 192 U/L (38-126); Anion Gap 15 mmol/L (8-16); Aspartate Amino Transferase 95 U/L (17-59); Bilirubin,Total 2.3 mg/dL (0.2-1.3); Blood Urea Nitrogen 94 mg/dL (9-20); Carbon Dioxide 17 mmol/L (22-30); Chloride 106 mmol/L (98-107); Estimated CRCL calculation 20 ml/min; Estimated Glomerular Filt Rate 16; Glucose 138 mg/dL (65-110); Magnesium 2.5 mg/dL (1.6-2.3); Potassium 4.2 mmol/L (3.4-5.0); Sodium 138 mmol/L (137-145); Triglycerides 226 mg/dL (<150)
[2023-09-11] MEDS: LEVOTHYROXINE SODIUM INJ 100 MCG/5 ML VIAL 50 MCG IV PUSH (05:32)
[2023-09-11] MEDS: ACETAMINOPHEN ELIXIR 325 MG/10.15 ML UDC 650 MG FEED TUBE ×2 (07:59→20:25)
[2023-09-11] MEDS: MINERAL OIL/WHITE PETROLATUM OINTMENT 1 APPLIC EACH EYE ×2 (08:01→20:26)
[2023-09-11] MEDS: SODIUM BICARBONATE 8.4% 50 MEQ/50 ML SYRINGE IV PUSH (08:01)
[2023-09-11] MEDS: PANTOPRAZOLE SODIUM IV 40 MG VIAL IV PUSH ×2 (08:07→20:25)
[2023-09-11] MEDS: ASPIRIN 81 MG CHEWABLE TABLET 162 MG PO (08:07)
--- NOTE | 2023-09-11 10:38 | PC.NURSE ---
Pt was transported to CT with 2 RNs and RT. Returned to bed.
--- NOTE | 2023-09-11 10:47 | PCFNICU ---
ICU Rounding Note: Pt current nutrition is TPN Clinmix 02/04/E @ 40 ml/h: 1182 kcal (~60% EER) , 48 g protein. Goal is 80 ml/h. Nutrition recommendation: Advance TPN as medically able Last recorded weight is 126.8 kg. Bowel Motility: Little output from colostomy. Colostomy was irrigated today Labs Reviewed: Hgb 8.1, Hct 25.6, Na 138, GFR 16, BUN 94, Cre 3.6, TRIG 226 Meds Noted: No sedation. Protonix, bumex, diflucan Skin: Edema Additional Notes: Per surgery, TON was decreased today due to labs. Surgery aware of elevated TRIG and may switch to every other day lipids if high TRIGs persist. Following daily in ICU rounds. Will montior weight, labs, skin, meds, TPN every Saturday and Saturday. .
[2023-09-11] MEDS: ENOXAPARIN 30 MG/0.3 ML SYRINGE SUB-Q (11:09)
[2023-09-11] MEDS: cefTRIAXone 2 GM/NS 100 ML 2 GM/100 ML BAG IVPB (11:12)
[2023-09-11] MEDS: COLLAGENASE OINT 30 GM TUBE 1 APPLIC TOPICAL (11:21)
--- NOTE | 2023-09-11 12:06 | PM.PNGS ---
Progress Note: A&P Assessment and Plan (1) Abdominal abscess: Status: Acute Assessment and Plan: Large fluid collections noticed on CT scan from earlier this morning. Very suspicious for abscesses. Patient had ultrasound-guided paracentesis of the left-sided fluid collection 2 days ago. This is growing Haemophilus. Previous abdominal abscess from 08/14/2023 also was positive for Haemophilus parainfluenzae. Discussed with Dr. Whitfield. Will go ahead and order image guided drainage of both these abscesses seen on CT scan. (2) Colostomy status: Code(s): Z93.3 - Colostomy status Status: Acute Assessment and Plan: [place], healthy, no stool output. Will ask enterostomal therapy nurses to irrigate. (3) S/P partial colectomy: Code(s): Z90.49 - Acquired absence of other specified parts of digestive tract Status: Acute Assessment and Plan: See above, abdominal abscess is noted on CT and will proceed with drainage. 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 (5) Fever: Qualifiers: Fever type: unspecified Qualified Code(s): R50.9 - Fever, unspecified Code(s): R50.9 - Fever, unspecified Status: Acute Assessment and Plan: Continues to have fevers of 100-101. Hopefully drainage of the abscess is seen on CT will improve this. (6) Protein-calorie malnutrition, severe: Code(s): E43 - Unspecified severe protein-calorie malnutrition Status: Acute Assessment and Plan: TPN rate decreased to 40 per hour today. Possibly TPN is affecting developing renal failure and uremia. (7) MOISÉS (acute kidney injury): Code(s): N17.9 - Acute kidney failure, unspecified Status: Acute Assessment and Plan: Creatinine and BUN continue to rise. Hopefully drainage of these abscesses will improve the situation. Subjective Subjective Date/Time Seen: 09/11/23 12:06 Post Op day: #7 Patient reports: bowel movement (No stoma output again today) and fever Review of Systems Review of Systems: ROS unobtainable: Yes unobtainable due to medical condition Exam Const: General: lethargic, tired appearing and edematous Nutritional Appearance: edematous GI: Inspection: Abdominal wall edema, distended and incision (Minimal serous drainage, healing) GI Palp: Yes Firmness to palpation present (GI) and No Tenderness to palpation present (GI) Auscultation: absent bowel sounds Objective Data Vital Signs Vital Signs: Vital Signs - 24 hr 09/10/23 13:05 09/10/23 14:00 09/10/23 14:00 Temperature 37.7 C H Pulse Rate 92 96 96 Respiratory Rate 20 Blood Pressure 125/78 Pulse Oximetry 96 96 Oxygen Delivery Mechanical Ventilation Fraction of Inspired Oxygen 30 09/10/23 16:00 09/10/23 16:00 09/10/23 16:00 Temperature 37.7 C H Pulse Rate 94 94 Respiratory Rate 24 H Blood Pressure 127/79 Pulse Oximetry 96 Oxygen Delivery Fraction of Inspired Oxygen 30 09/10/23 16:00 09/10/23 16:00 09/10/23 16:10 Temperature 37.8 C H Pulse Rate 94 93 94 Respiratory Rate 24 H 27 H Blood Pressure 127/79 Pulse Oximetry 96 96 96 Oxygen Delivery Mechanical Ventilation Mechanical Ventilation Fraction of Inspired Oxygen 30 30 09/10/23 18:00 09/10/23 18:00 09/10/23 19:48 Temperature 37.9 C H 38.1 C H Pulse Rate 98 95 Respiratory Rate 20 Blood Pressure 132/72 Pulse Oximetry 99 Oxygen Delivery Fraction of Inspired Oxygen 09/10/23 20:00 09/10/23 20:00 09/10/23 20:00 Temperature 38.1 C H Pulse Rate 101 H 98 Respiratory Rate 29 H 27 H Blood Pressure 113/65 Pulse Oximetry 93 93 Oxygen Delivery Mechanical Ventilation Fraction of Inspired Oxygen 30 30 09/10/23 20:00 09/10/23 20:48 09/10/23 22:00 Temperature 37.8 C H Pulse Rate 103 H 88 Respiratory Rate Blood
[2023-09-11 12:33] LABS: Glucose Point of Care 137 mg/dl (65-105)
--- NOTE | 2023-09-11 13:00 | WPDURCON ---
Assessment and Plan Assessment and plan (1) Edema of scrotum: Code(s): N50.89 - Other specified disorders of the male genital organs Status: Acute Plan 83-year-old gentleman with complex hospitalization/ICU course. CT scan performed with incidental scrotal thickening, concerning for potential abscess. Exam most consistent with scrotal edema. There is no concern for Gala gangrene based on exam -scrotal elevation recommended. A towel was placed to assist in elevation of the scrotum today -plan scrotal ultrasound to ensure no other testicular/scrotal pathology present -continue antibiotics per ICU/general surgery team -thank you for the consultation. As long as scrotal ultrasound shows no significant findings, we will plan to follow peripherally Urology Consult Note HPI Date Seen: 09/11/23 Requesting Physician: Jaxon Armijo MD Primary Care Provider: Demond Stark MD Consult Narrative Narrative: Omar Ryan is a 83 year old male with complex hospital course. He has had inguinal hernia repair complicated by intra-abdominal abscesses and subsequent colostomy. The patient underwent recent intra abdominal abscess drainage earlier this week and follow-up CT scan performed this morning revealed recurrence of intra-abdominal abscesses as well as concerns of potential abscess in the scrotum. Urology was called to evaluate the patient. [facility] [place] Past Medical History Medical History (Updated 09/11/23 @ 13:05 by Baron Shelton MD) Basal cell carcinoma BMI 31.0-31.9,adult BMI 32.0-32.9,adult BMI greater than 30 Brain bleed CAD (coronary artery disease) Constipation Decreased ROM of left shoulder Edema of scrotum Elevated glucose GERD (gastroesophageal reflux disease) Hepatitis B Hyperlipidemia Hypertension Hypothyroid Myocardial infarct Paroxysmal atrial fibrillation Prediabetes Prostate CA Screening for prostate cancer Seizures Surgical History Surgical History (Updated 09/05/23 @ 18:18 by Jaxon Armijo MD) H/O arthroscopy lt knee H/O prostatectomy Hx of 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 Yen Hx of local excision of skin lesion Family History Family History Father Malignant neoplasm of prostate Sibling Ovarian cancer Mother , epilepsy No problems noted. Sibling No problems noted. Social History Social History Smoking packs per day: 2 Smoking cigarettes per day: 40.0 Years smoked: 12 Smoking pack-years: 24.00 Smoking status: Former smoker Tobacco type: cigarettes Second hand tobacco smoke exposure: No Smoking end date: 09/23/70 Alcohol intake: current Alcohol use details: RARELY - 1/2 CASE BEER/YR Substance use: never Substance use type: does not use Lack of Transportation: No Lack of Food: Never True Current Housing: I Have Housing Concerned About Future Housing: No Difficulty Paying Gas/Electric Bills: No Difficulty Paying for Meds: No Currently Unemployed: No Education: High School Diploma/GED Difficulty w/ Childcare or Family Care: No Living arrangements: with family Occupation/Education: retired 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
--- NOTE | 2023-09-11 13:01 | PM.PNNEP ---
Progress Note: A&P Assessment and Plan (1) MOISÉS (acute kidney injury): Code(s): N17.9 - Acute kidney failure, unspecified Status: Acute Assessment and Plan: multiple episodes noted since admission multifactorial issues present: prerenal factors relative hypotension (sometimes as low as 80s systolic) ongoing use of ARB (losartan) IV ibuprofen use contrast exposure (CT scan on 08/04/23) recurrent infection/sepsis (suspect major component) evaluation during this hospital stay: renal ultrasound okay urine electrolytes prerenal urine eosinophils negative CPK mildly elevated (but not likely to affect kidney function) rising BUN and creatinine noted but good urine output noted follow trend of repeat labs and UOP remains at risk for [employer]/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 (2) Sepsis: Qualifiers: Sepsis type: sepsis due to unspecified organism Sepsis acute organ dysfunction status: with acute organ dysfunction Severe sepsis acute organ dysfunction type: acute renal failure Acute renal failure type: unspecified Severe sepsis shock status: without septic shock Qualified Code(s): A41.9 - Sepsis, unspecified organism; R65.20 - Severe sepsis without septic shock; N17.9 - Acute kidney failure, unspecified Code(s): A41.9 - Sepsis, unspecified organism Status: Acute Assessment and Plan: remains hemodynamically stable multiple issues/etiologies: recurrent abdominal abscesses as noted by imaging peritonitis (see recent ascites fluid cultures) previous cholecystitis previous pneumonia extensive culture data noted IR to place abdominal drains for most recent abdominal abscess on antibiotics (3) Acute respiratory failure: Qualifiers: Respiratory failure complication: hypoxia and hypercapnia Qualified Code(s): J96.01 - Acute respiratory failure with hypoxia; J96.02 - Acute respiratory failure with hypercapnia Code(s): J96.00 - Acute respiratory failure, unspecified whether with hypoxia or hypercapnia Status: Acute Assessment and Plan: s/p tracheostomy for prolonged ventilator weaning complicated by weakness and severe deconditioning PRN diuretics to maintain volume status continue weaning trial as tolerated (4) Pelvic abscess in male: Code(s): K65.1 - Peritoneal abscess Status: Acute Assessment and Plan: previous drains removed s/p diverting colostomy unfortunately, new abdominal abscess noted by recent CT scan drain placement to be done by IR (5) Decubitus ulcer: Code(s): L89.90 - Pressure ulcer of unspecified site, unspecified stage Status: Acute Assessment and Plan: s/p debridement and diverting colostomy local wound care Surgery following (6) Anemia: Qualifiers: Anemia type: other cause Other causes of anemia: chronic disease, other Qualified Code(s): D63.8 - Anemia in other chronic diseases classified elsewhere Code(s): D64.9 - Anemia, unspecified Status: Acute Assessment and Plan: due to operative interventions, acute illness and MOISÉS PRBC transfusion per protocol follow trend of H/H Will continue to follow. Subjective Date/time seen: 09/11/23 13:01 Interval history: Follow-up for acute kidney injury/acute renal failure. Remains on ventilator support via tracheostomy; renal function/creatinine slightly worse by AM labs despite holding diuretics but continues to make good urine output; continues to have on/off fevers overnight and earlier today; results of recent CT scan noted. Objective Data Vital Signs Vital Signs: Vital Signs Temp Pulse Resp BP Pulse Ox O2 Del Method FiO2 09/11/23 11:58 100.2 F H 90 17 106/70 09/11/23 11:58 35 09/11/23 11:58 96 22 H 97 Mechanical Ventilation 35 09/11/23 11:58 92 09/11/23 11:41 92 97 Mechanical Ventilation 35 09/11/23 09:50 98 96 [employer]
--- NOTE | 2023-09-11 13:01 | P.PNNP_ITS ---
Progress Note: A&P Assessment and Plan (1) MOISÉS (acute kidney injury): Code(s): N17.9 - Acute kidney failure, unspecified Status: Acute Assessment and Plan: * multiple episodes noted since admission * multifactorial issues present: * prerenal factors * relative hypotension (sometimes as low as 80s systolic) * ongoing use of ARB (losartan) * IV ibuprofen use * contrast exposure (CT scan on 08/04/23) * recurrent infection/sepsis (suspect major component) * evaluation during this hospital stay: * renal ultrasound okay * urine electrolytes prerenal * urine eosinophils negative * CPK mildly elevated (but not likely to affect kidney function) * rising BUN and creatinine noted but good urine output noted * follow trend of repeat labs and UOP * remains at risk for [employer]/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 (2) Sepsis: Qualifiers: Sepsis type: sepsis due to unspecified organism Sepsis acute organ dy sfunction status: with acute organ dysfunction Severe sepsis acute organ d ysfunction type: acute renal failure Acute renal failure type: unspecified Severe sepsis shock status: without septic shock Qualified Code(s): A41.9 - Sepsis, unspecified organism; R65.20 - Severe sepsis without septic shock; N17.9 - Acute kidney failure, unspecified Code(s): A41.9 - Sepsis, unspecified organism Status: Acute Assessment and Plan: * remains hemodynamically stable * multiple issues/etiologies: * recurrent abdominal abscesses as noted by imaging * peritonitis (see recent ascites fluid cultures) * previous cholecystitis * previous pneumonia * extensive culture data noted * IR to place abdominal drains for most recent abdominal abscess * on antibiotics (3) Acute respiratory failure: Qualifiers: Respiratory failure complication: hypoxia and hypercapnia Qualified Code(s): J96.01 - Acute respiratory failure with hypoxia; J96.02 - Acute respiratory failure with hypercapnia Code(s): J96.00 - Acute respiratory failure, unspecified whether with hypoxia or hypercapnia Status: Acute Assessment and Plan: * s/p tracheostomy for prolonged ventilator weaning * complicated by weakness and severe deconditioning * PRN diuretics to maintain volume status * continue weaning trial as tolerated (4) Pelvic abscess in male: Code(s): K65.1 - Peritoneal abscess Status: Acute Assessment and Plan: * previous drains removed * s/p diverting colostomy * unfortunately, new abdominal abscess noted by recent CT scan * drain placement to be done by IR (5) Decubitus ulcer: Code(s): L89.90 - Pressure ulcer of unspecified site, unspecified stage Status: Acute Assessment and Plan: * s/p debridement and diverting colostomy * local wound care * Surgery following (6) Anemia: Qualifiers: Anemia type: other cause Other causes of anemia: chronic disease, other Qualified Code(s): D63.8 - Anemia in other chronic diseases classified elsewhere Code(s): D64.9 - Anemia, unspecified Status: Acute Assessment and Plan: * due to operative interventions, acute illness and MOISÉS * PRBC transfusion per protocol * follow trend of H/H Will continue to follow. Subjective Date/time seen: 09/11/23 13:01 Interval history: Follow-up for acute kidney injury/acute renal failure. Remains on ventilator support via tracheostomy; renal function/creatinine slightly worse by AM labs despite holding diuretics but continues to make goo
--- NOTE | 2023-09-11 13:13 | WPDINTPN ---
Progress Note: A&P Assessment and Plan (1) Acute respiratory failure: Qualifiers: Respiratory failure complication: hypoxia and hypercapnia Qualified Code(s): J96.01 - Acute respiratory failure with hypoxia; J96.02 - Acute respiratory failure with hypercapnia Code(s): J96.00 - Acute respiratory failure, unspecified whether with hypoxia or hypercapnia Status: Acute Assessment and Plan: Acute hypoxic and hypercarbic respiratory failure. Chest x-ray shows diffuse lung disease most likely which improved with diuretics. ABG chest x-ray and ventilator settings reviewed this morning 08/17 Patient placed on PSV but failed quickly due to high RSBI. PSV increased to 15/8 to get adequate RSBI. Patient tolerated that for many hours It appears the patient is severely deconditioned and weak 08/18 will re try PSV again today. Continue Bumex to manage the fluid balance 08/19 patient placed on PSV again today. Patient either had low rate on high pressure support or low tidal volume lower pressure support. I was able to get adequate RSBI on 06/30. This is better than what he has done in the past but still good enough for extubation. I will continue pressure support ventilation as tolerated through the day and try to wean down pressure support. 08/20 patient placed on PSV again and can only get adequate RSBI on 06/30. If extubated patient will need and NIPPV which because of his deconditioning and fluctuating mental status may not be good option. Will continue PSV as tolerated today Antibiotics as below Low tidal volume management -08/21, patient placed on pressure support ventilation 08/27, respiratory rate was low with decreased tidal volumes, placed on ASV mode, patient's respiratory rate remained low patient was placed back on CMV mode, will try again today -08/22: Patient tolerated PSV 10/5 for approximately 6-7 hours after which the tidal volumes were low, patient seemed to be tired and weak and was placed on CMV mode 08/23: Tolerated PSV 8/5 for approximately 3 hours, and had to be placed on CMV mode as dropped his tidal volumes and was tachypneic 08/24: Patient tolerated PSV 10/5 for few hours and had increased work of breathing and decrease tidal volumes so was placed back on CMV mode -08/25: Tolerated pressure support ventilation 10/5 all day long and was switched to ASV overnight -08/26: Tolerated PSV 10/5 for a few hours and had to be placed back on CMV mode of ventilation -08/27: Discuss with family, surgery, does not seem that the patient is going to come off the ventilator since he is not tolerating appropriate spontaneous breathing trial. Discussed with them regarding tracheostomy to which the family and the surgeon are agreeable. ENT has been consulted and tracheostomy scheduled for 08/30 Continue Bumex as needed to keep balance even 08/28 did not tolerate PSV for prolonged period of time 08/30 patient now status post tracheostomy. 08/31 patient placed on PSV but only tolerated for some time as patient kept on going into apnea ventilation and switching SIMV mode. 09/02 tolerated PSV till 7:00 p.m. with intermittent low respirator alarms 09/03 patient was trialed on PSV but patient kept on going into apnea ventilation and low tidal volume. he was switched back to CMV 09/05 patient did not tolerate PSV due to tachypnea and low tidal volumes 09/06 peep increased to 10 to minimize atelectasis 09/09 patient appears to have developed a leak in his tracheostomy cuff. NEW TRACHEOSTOMY was inserted by ENT on 09/09 09/10: Tolerated pressure support ventilation 14/8 all day, was placed on CMV mode overnight 09/11: Placed on pressure support ventilation 14/8 and tolerating for now will switch to CMV mode overnight (2) Sepsis: Qualifiers: Acute renal failure type: unspecified Sepsis acute organ dysfunction status: with acute organ dysfunction Sepsis type: sepsis due to unspecified organism Severe sepsis acute organ dysfunctio
--- NOTE | 2023-09-11 13:25 | PC.NURSE ---
this nurse was notified one hour after the abdomenal drainage was identified and posted
[2023-09-11] MEDS: AMINO ACIDS 5%/D15W/E-LYTES/CA 2,000 ML with MULTIVITAMINS-12 INJ VIAL 1 2.5 ML, MULTIV... 80 ML IV CONT (16:57)
[2023-09-11] MEDS: metroNIDAZOLE 500 MG/ISO 100ML 500 MG/100 ML BAG 100 MG IVPB ×2 (16:57→21:29)
[2023-09-11] MEDS: FLUCONAZOLE 200 MG/NACL 100 ML 200 MG/100 ML BAG 100 MG IVPB (16:57)
[2023-09-11] MEDS: FAT EMULSIONS IV 20% 250 ML 20.8 ML IVPB (16:58)
--- NOTE | 2023-09-11 18:58 | PM.IMPN ---
Progress Note: A&P Assessment and Plan (1) Respiratory failure: Qualifiers: Chronicity: chronic Respiratory failure complication: hypercapnia Qualified Code(s): J96.12 - Chronic respiratory failure with hypercapnia Code(s): J96.90 - Respiratory failure, unspecified, unspecified whether with hypoxia or hypercapnia Status: Chronic Assessment and Plan: Patient had acute respiratory failure earlier felt to be multifactorial due to fluid overload, possible aspiration pneumonia vs atelectasis. CXR 08/09 showed mild pulm edema, small left pleural effusion, right opacities worsening concerning for pneumonia--CT less concerning for PNA. MRSA swab negative 08/09: Linezolid added to cover Enterococcus species growing from cholecystostomy tube Lasix then Bumex was given with improved resp status. Weaned to room air. He remained on IV Bumex. ------ On the morning of 08/15, patient developed acute respiratory distress. ABG 7.37/62/58 so BiPAP ordered Repeat ABG 7.15/101/91 so patient intubated. CXR reviewed showing diffuse lung disease c/w edema vs PNA vs atelectasis Cumulative fluid balance at that time was +2.7L with excellent UOP past few days prior Consider pulmonary edema vs ARDS vs aspiration but NPO so felt less likely. Good UOP with Bumex but UOP dropping off Trach placed 08/30; He remains on mechanical ventilation Trach had to be replaced on 09/09 CXR 09/10 showing left base atatelectasis. CT abd 09/11 showing small effusions with dependent airspace opacities. 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 Wean vent as tolerated (2) Sepsis: Qualifiers: Sepsis type: sepsis due to unspecified organism Sepsis acute organ dysfunction status: with acute organ dysfunction Severe sepsis acute organ dysfunction type: acute renal failure Acute renal failure type: unspecified Severe sepsis shock status: without septic shock Qualified Code(s): A41.9 - Sepsis, unspecified organism; R65.20 - Severe sepsis without septic shock; N17.9 - Acute kidney failure, unspecified Code(s): A41.9 - Sepsis, unspecified organism Status: Acute Assessment and Plan: Currently being treated for cholecystitis + pelvic abscesses UCx 08/05, 08/06, 08/16 negative GB Cx 08/06 growing enterococcus but unable to perform sensitivities Abscess Cx 08/06 Prevotella that is beta-lactamase positive BCx 08/06 negative. MRSA nasal swab 08/09 negative BCx 08/10 negative. Fungal cx 08/11 pending (?) CT A/P 08/13 showing multiple intraperitoneal abscesses similar to 08/09 with worsening mass involving the right inguinal canal and right scrotum. 08/14: Multiple Abd drains placed with culture growing H. parainfluenza and prevotella BCx 08/[address] A/P 08/18 slight increase in fluid collection adjacent to LLQ pigtail drain measuring 3 cm, other fluid collections are either stable or slightly smaller in size, stable right groin infected hematoma, cystitis versus bladder wall thickening, Weathers catheter in place but balloon not visualized and mild fecal impaction. Tx with meropenem, linezolid. Micafungin added 08/11 he completed a course of linezolid stopped 08/19. meropenem changed to Cefepime and Flagyl. Flagyl and Cefepime stopped 08/23 Micafungin stopped 08/25 after 14 days course Zosyn started 08/23 through 08/26 WBC remaining normal and fevers resolved now All abx stopped on 08/26 -------- Fevers so recultered and Abx resumed 09/01 UE/LE Dopplers negative for DVT 09/07 UCx growing ketan parapsilosis Paracentesis 09/09 returning purulent fluid with cx growing Bacteroides, klebsiella pneumoniae. CT A/P 09/11 showing LLQ abscess 14cm and Pelvic abscess 12cm. May have a scrotal abscess. Abd and pelvic drains placed 09/11 Continue IV abx with Rocephin and Flagyl and antifungal with Diflucan (3) Cholecystitis: Code(s): K81.9 - Cholecystitis, unspecified Status: Acute Assessment and Plan: Cholecystostomy fluid drain
[2023-09-11 19:02] LABS: Glucose Point of Care 118 mg/dl (65-105)
[2023-09-11 23:20] LABS: Glucose Point of Care 123 mg/dl (65-105)
[2023-09-12] VITALS (23 sets, daily range): BP systolic 108–140; BP diastolic 67–88; PULSE 77–103; RESP 20–30; TEMP 36.9–37.3; O2SAT 92–98
[2023-09-12 04:59] LABS: Hematocrit 24.6 % (42.0-52.0); Hemoglobin 7.9 g/dL (14.0-18.0); Mean Corpuscular HGB Conc 32.1 g/dl (32-36); Mean Corpuscular Hemoglobin 30.6 pg (26-34); Mean Corpuscular Volume 95.3 fl (80-100); Mean Platelet Volume 11.3 fl (7.4-10.4); Platelet Count Result 223 k/mm3 (150-375); Red Blood Count 2.58 M/mm3 (4.6-6.20); Red Cell Distribution Width 15.9 % (11.5-14.5)
[2023-09-12] MEDS: ALBUMIN HUMAN 25% 25 GM/100 ML 100 ML IVPB (05:00)
[2023-09-12 05:13] LABS: Alanine Aminotransferase 65 U/L (6-50); Albumin Level 3.7 g/dL (3.5-5.1); Alkaline Phosphatase 177 U/L (38-126); Anion Gap 13 mmol/L (8-16); Aspartate Amino Transferase 88 U/L (17-59); Bilirubin,Total 2.7 mg/dL (0.2-1.3); Blood Urea Nitrogen 103 mg/dL (9-20); Carbon Dioxide 18 mmol/L (22-30); Chloride 107 mmol/L (98-107); Estimated CRCL calculation 17 ml/min; Estimated Glomerular Filt Rate 14; Glucose 119 mg/dL (65-110); Lipase 173 U/L (23-300); Magnesium 2.6 mg/dL (1.6-2.3); Phosphorus 4.3 mg/dL (2.5-4.5); Potassium 4.2 mmol/L (3.4-5.0); Sodium 138 mmol/L (137-145)
[2023-09-12] MEDS: metroNIDAZOLE 500 MG/ISO 100ML 500 MG/100 ML BAG 100 MG IVPB ×3 (05:35→20:18)
[2023-09-12] MEDS: LEVOTHYROXINE SODIUM INJ 100 MCG/5 ML VIAL 50 MCG IV PUSH (05:35)
[2023-09-12] MEDS: CENTRAL LINE FLUSH 10 ML IV PUSH ×3 (05:35→20:18)
--- NOTE | 2023-09-12 07:07 | WPDUROPN2 ---
Progress Note: A&P Assessment and Plan (1) Edema of scrotum: Code(s): N50.89 - Other specified disorders of the male genital organs Status: Acute Assessment and Plan: Scrotal us: - edematous scrotal wall and small left epididymal cyst - no findings to suggest scrotal abscess or other significant pathology Subjective Subjective Date/Time Seen: 09/12/23 07:07 Interval history: Intubated Review of Systems Review of Systems: ROS unobtainable: Yes unobtainable due to endotracheal tube Exam Const: General: no acute distress Resp: Effort & Inspection: normal respiratory effort GI: Inspection: non-distended GI Palp: No abdominal tenderness and No Guarding due to palpation present (GI) : Other: Scrotum elevated, edematous without necrosis/crepitance Urinary Catheter: Urinary Catheter: patent and draining and urine clear Objective Data Vital Signs Vital Signs: Vital Signs - 24 hr 09/11/23 08:00 09/11/23 08:00 09/11/23 07:59 Temperature 101.3 F H Pulse Rate 101 H Respiratory Rate 30 H Blood Pressure Pulse Oximetry 94 Oxygen Delivery Mechanical Ventilation Fraction of Inspired Oxygen 35 35 09/11/23 08:00 09/11/23 08:00 09/11/23 08:00 Temperature 101.4 F H 101.3 F H Pulse Rate 114 H 114 H 101 H Respiratory Rate 26 H 30 H Blood Pressure 131/74 131/74 Pulse Oximetry 96 94 Oxygen Delivery Fraction of Inspired Oxygen 09/11/23 10:00 09/11/23 10:00 09/11/23 09:30 Temperature 100.4 F H 100.8 F H Pulse Rate 104 H 90 Respiratory Rate 22 H Blood Pressure 101/75 Pulse Oximetry 98 Oxygen Delivery Fraction of Inspired Oxygen 09/11/23 08:59 09/11/23 09:50 09/11/23 11:41 Temperature 101.0 F H Pulse Rate 98 92 Respiratory Rate Blood Pressure Pulse Oximetry 96 97 Oxygen Delivery Mechanical Ventilation Mechanical Ventilation Fraction of Inspired Oxygen 35 35 09/11/23 11:58 09/11/23 11:58 09/11/23 11:58 Temperature Pulse Rate 92 96 Respiratory Rate 22 H Blood Pressure Pulse Oximetry 97 Oxygen Delivery Mechanical Ventilation Fraction of Inspired Oxygen 35 35 09/11/23 11:58 09/11/23 14:00 09/11/23 16:45 Temperature 100.2 F H 100 F H Pulse Rate 90 109 H 83 Respiratory Rate 17 19 Blood Pressure 106/70 126/70 Pulse Oximetry 98 Oxygen Delivery Fraction of Inspired Oxygen 09/11/23 16:00 09/11/23 16:00 09/11/23 16:00 Temperature 100 F H Pulse Rate 98 83 Respiratory Rate 19 19 Blood Pressure 126/70 Pulse Oximetry 97 97 Oxygen Delivery Mechanical Ventilation Fraction of Inspired Oxygen 35 35 09/11/23 16:24 09/11/23 17:40 09/11/23 14:25 Temperature Pulse Rate 99 98 99 Respiratory Rate Blood Pressure Pulse Oximetry 99 96 99 Oxygen Delivery Mechanical Ventilation Mechanical Ventilation Mechanical Ventilation Fraction of Inspired Oxygen 35 30 35 09/11/23 18:00 09/11/23 18:00 09/11/23 20:25 Temperature 100.3 F H 100.2 F H Pulse Rate 98 112 H Respiratory Rate 22 H Blood Pressure 134/71 Pulse Oximetry 96 Oxygen Delivery Fraction of Inspired Oxygen 09/11/23 20:55 09/11/23 20:00 09/11/23 22:00 Temperature 100.1 F H 99.6 F Pulse Rate 100 107 H 96 Respiratory Rate 24 H 23 H Blood Pressure 134/82 108/61 Pulse Oximetry 95 96 95 Oxygen Delivery Mechanical Ventilation Fraction of Inspired Oxygen 30 09/11/23 20:00 09/11/23 20:00 09/11/23 20:00 Temperature Pulse Rate 96 107 H Respiratory Rate 23 H Blood Pressure Pulse Oximetry 95 Oxygen Delivery Mechanical Ventilation Fraction of Inspired Oxygen 30 30 09/11/23 22:00 09/11/23 21:25 09/12/23 00:00 Temperature 99.9 F H 99.1 F Pulse Rate 88 86 Respiratory Rate 23 H Blood Pressure 116/67 Pulse Oximetry 95 Oxygen Delivery Fraction of Inspired Oxygen 09/12/23 00:00 09/12/23 00:00 09/12/23 00:00 Temperature Pulse Rate 86 84
[2023-09-12] MEDS: PANTOPRAZOLE SODIUM IV 40 MG VIAL IV PUSH ×2 (08:37→20:18)
[2023-09-12] MEDS: BUMETANIDE INJ 2.5 MG/10 ML VIAL 2 MG IV PUSH (08:37)
[2023-09-12] MEDS: MINERAL OIL/WHITE PETROLATUM OINTMENT 1 APPLIC EACH EYE ×2 (08:37→20:18)
[2023-09-12] MEDS: cefTRIAXone 2 GM/NS 100 ML 2 GM/100 ML BAG IVPB (08:38)
[2023-09-12] MEDS: ASPIRIN 81 MG CHEWABLE TABLET 162 MG PO (08:38)
[2023-09-12] MEDS: ENOXAPARIN 30 MG/0.3 ML SYRINGE SUB-Q (08:38)
[2023-09-12] MEDS: COLLAGENASE OINT 30 GM TUBE 1 APPLIC TOPICAL (08:39)
[2023-09-12 11:58] LABS: Glucose Point of Care 139 mg/dl (65-105)
--- NOTE | 2023-09-12 12:00 | WPDINTPN ---
Progress Note: A&P Assessment and Plan (1) Acute respiratory failure: Qualifiers: Respiratory failure complication: hypoxia and hypercapnia Qualified Code(s): J96.01 - Acute respiratory failure with hypoxia; J96.02 - Acute respiratory failure with hypercapnia Code(s): J96.00 - Acute respiratory failure, unspecified whether with hypoxia or hypercapnia Status: Acute Assessment and Plan: Acute hypoxic and hypercarbic respiratory failure. Chest x-ray shows diffuse lung disease most likely which improved with diuretics. ABG chest x-ray and ventilator settings reviewed this morning 08/17 Patient placed on PSV but failed quickly due to high RSBI. PSV increased to 15/8 to get adequate RSBI. Patient tolerated that for many hours It appears the patient is severely deconditioned and weak 08/18 will re try PSV again today. Continue Bumex to manage the fluid balance 08/19 patient placed on PSV again today. Patient either had low rate on high pressure support or low tidal volume lower pressure support. I was able to get adequate RSBI on 06/30. This is better than what he has done in the past but still good enough for extubation. I will continue pressure support ventilation as tolerated through the day and try to wean down pressure support. 08/20 patient placed on PSV again and can only get adequate RSBI on 06/30. If extubated patient will need and NIPPV which because of his deconditioning and fluctuating mental status may not be good option. Will continue PSV as tolerated today Antibiotics as below Low tidal volume management -08/21, patient placed on pressure support ventilation 08/27, respiratory rate was low with decreased tidal volumes, placed on ASV mode, patient's respiratory rate remained low patient was placed back on CMV mode, will try again today -08/22: Patient tolerated PSV 10/5 for approximately 6-7 hours after which the tidal volumes were low, patient seemed to be tired and weak and was placed on CMV mode 08/23: Tolerated PSV 8/5 for approximately 3 hours, and had to be placed on CMV mode as dropped his tidal volumes and was tachypneic 08/24: Patient tolerated PSV 10/5 for few hours and had increased work of breathing and decrease tidal volumes so was placed back on CMV mode -08/25: Tolerated pressure support ventilation 10/5 all day long and was switched to ASV overnight -08/26: Tolerated PSV 10/5 for a few hours and had to be placed back on CMV mode of ventilation -08/27: Discuss with family, surgery, does not seem that the patient is going to come off the ventilator since he is not tolerating appropriate spontaneous breathing trial. Discussed with them regarding tracheostomy to which the family and the surgeon are agreeable. ENT has been consulted and tracheostomy scheduled for 08/30 Continue Bumex as needed to keep balance even 08/28 did not tolerate PSV for prolonged period of time 08/30 patient now status post tracheostomy. 08/31 patient placed on PSV but only tolerated for some time as patient kept on going into apnea ventilation and switching SIMV mode. 09/02 tolerated PSV till 7:00 p.m. with intermittent low respirator alarms 09/03 patient was trialed on PSV but patient kept on going into apnea ventilation and low tidal volume. he was switched back to CMV 09/05 patient did not tolerate PSV due to tachypnea and low tidal volumes 09/06 peep increased to 10 to minimize atelectasis 09/09 patient appears to have developed a leak in his tracheostomy cuff. NEW TRACHEOSTOMY was inserted by ENT on 09/09 09/10: Tolerated pressure support ventilation 14/8 all day, was placed on CMV mode overnight 09/11: Placed on pressure support ventilation 14/8 and tolerating for now will switch to CMV mode overnight Will continue CMV mode of ventilation for today (2) Sepsis: Qualifiers: Sepsis type: sepsis due to unspecified organism Sepsis acute organ dysfunction status: with acute organ dysfunction Severe sepsis acute orga
[2023-09-12] MEDS: FLUCONAZOLE 200 MG/NACL 100 ML 200 MG/100 ML BAG 100 MG IVPB (13:14)
--- NOTE | 2023-09-12 13:45 | P.PNNP_ITS ---
Progress Note: A&P Assessment and Plan (1) MOISÉS (acute kidney injury): Code(s): N17.9 - Acute kidney failure, unspecified Status: Acute Assessment and Plan: * multiple episodes noted since admission * multifactorial issues present: * prerenal factors * relative hypotension (sometimes as low as 80s systolic) * ongoing use of ARB (losartan) * IV ibuprofen use * contrast exposure (CT scan on 08/04/23) * recurrent infection/sepsis (suspect major component) * currently major issues are blood pressure and sepsis. * evaluation during this hospital stay: * renal ultrasound okay * urine electrolytes prerenal * urine eosinophils negative * CPK mildly elevated (but not likely to affect kidney function) * BUN and creatinine sal again. Urine output is doing pretty well. * He is on diuretics right now. * He may need to be dialyzed but he is very frail right now. * Discussed with Dr. Whitfield. (2) Sepsis: Qualifiers: Sepsis type: sepsis due to unspecified organism Sepsis acute organ dysfunction status: with acute organ dysfunction Severe sepsis acute organ dysfunction type: acute renal failure Acute renal failure type: unspecified Severe sepsis shock status: without septic shock Qualified Code(s): A41.9 - Sepsis, unspecified organism; R65.20 - Severe sepsis without septic shock; N17.9 - Acute kidney failure, unspecified Code(s): A41.9 - Sepsis, unspecified organism Status: Acute Assessment and Plan: * remains hemodynamically stable * on no pressors * abdominal fluid showed Bacteroides but not B fragilis, and Klebsiella. * multiple issues/etiologies: * recurrent abdominal abscesses as noted by imaging * peritonitis (see recent ascites fluid cultures) * IR placed abdominal drains yesterday. * on Ceftriaxone and Flagyl (3) Acute respiratory failure: Qualifiers: Respiratory failure complication: hypoxia and hypercapnia Qualified Code(s): J96.01 - Acute respiratory failure with hypoxia; J96.02 - Acute respiratory failure with hypercapnia Code(s): J96.00 - Acute respiratory failure, unspecified whether with hypoxia or hypercapnia Status: Acute Assessment and Plan: * s/p tracheostomy for prolonged ventilator weaning * complicated by weakness and severe deconditioning * on 30% oxygen. (4) Pelvic abscess in male: Code(s): K65.1 - Peritoneal abscess Status: Acute Assessment and Plan: * previous drains removed * s/p diverting colostomy * Drain placed (5) Decubitus ulcer: Code(s): L89.90 - Pressure ulcer of unspecified site, unspecified stage Status: Acute Assessment and Plan: * s/p debridement and diverting colostomy * local wound care * Surgery following (6) Anemia: Qualifiers: Anemia type: other cause Other causes of anemia: chronic disease, other Qualified Code(s): D63.8 - Anemia in other chronic diseases classified elsewhere Code(s): D64.9 - Anemia, unspecified Status: Acute Assessment and Plan: * due to operative interventions, acute illness and MOISÉS * hemoglobin 7.7. * Will start Epogen Subjective Date/time seen: 09/12/23 13:45 Interval history: Mr. Ryan is on the ventilator and sedated. Two granddaughters are in the room at the bedside. He is looking comfortable right now. Exam Narrative: General: elderly but WD/WN male in NAD Heart: IRRR, normal S1 a
--- NOTE | 2023-09-12 13:45 | PM.PNNEP ---
Progress Note: A&P Assessment and Plan (1) MOISÉS (acute kidney injury): Code(s): N17.9 - Acute kidney failure, unspecified Status: Acute Assessment and Plan: multiple episodes noted since admission multifactorial issues present: prerenal factors relative hypotension (sometimes as low as 80s systolic) ongoing use of ARB (losartan) IV ibuprofen use contrast exposure (CT scan on 08/04/23) recurrent infection/sepsis (suspect major component) currently major issues are blood pressure and sepsis. evaluation during this hospital stay: renal ultrasound okay urine electrolytes prerenal urine eosinophils negative CPK mildly elevated (but not likely to affect kidney function) BUN and creatinine sal again. Urine output is doing pretty well. He is on diuretics right now. He may need to be dialyzed but he is very frail right now. Discussed with Dr. Whitfield. (2) Sepsis: Qualifiers: Sepsis type: sepsis due to unspecified organism Sepsis acute organ dysfunction status: with acute organ dysfunction Severe sepsis acute organ dysfunction type: acute renal failure Acute renal failure type: unspecified Severe sepsis shock status: without septic shock Qualified Code(s): A41.9 - Sepsis, unspecified organism; R65.20 - Severe sepsis without septic shock; N17.9 - Acute kidney failure, unspecified Code(s): A41.9 - Sepsis, unspecified organism Status: Acute Assessment and Plan: remains hemodynamically stable on no pressors abdominal fluid showed Bacteroides but not B fragilis, and Klebsiella. multiple issues/etiologies: recurrent abdominal abscesses as noted by imaging peritonitis (see recent ascites fluid cultures) IR placed abdominal drains yesterday. on Ceftriaxone and Flagyl (3) Acute respiratory failure: Qualifiers: Respiratory failure complication: hypoxia and hypercapnia Qualified Code(s): J96.01 - Acute respiratory failure with hypoxia; J96.02 - Acute respiratory failure with hypercapnia Code(s): J96.00 - Acute respiratory failure, unspecified whether with hypoxia or hypercapnia Status: Acute Assessment and Plan: s/p tracheostomy for prolonged ventilator weaning complicated by weakness and severe deconditioning on 30% oxygen. (4) Pelvic abscess in male: Code(s): K65.1 - Peritoneal abscess Status: Acute Assessment and Plan: previous drains removed s/p diverting colostomy Drain placed (5) Decubitus ulcer: Code(s): L89.90 - Pressure ulcer of unspecified site, unspecified stage Status: Acute Assessment and Plan: s/p debridement and diverting colostomy local wound care Surgery following (6) Anemia: Qualifiers: Anemia type: other cause Other causes of anemia: chronic disease, other Qualified Code(s): D63.8 - Anemia in other chronic diseases classified elsewhere Code(s): D64.9 - Anemia, unspecified Status: Acute Assessment and Plan: due to operative interventions, acute illness and MOISÉS hemoglobin 7.7. Will start Epogen Subjective Date/time seen: 09/12/23 13:45 Interval history: Mr. Ryan is on the ventilator and sedated. Two granddaughters are in the room at the bedside. He is looking comfortable right now. Exam Narrative: General: elderly but WD/WN male in NAD Heart: IRRR, normal S1 and S2; no rub Or gallop Lungs: coarse breath sounds Abdomen: mild distension with decreased bowel sounds; colostomy noted in LLQ Extremities: 1+ bilateral pre sacral edema Skin: no acute rash Objective Data Vital Signs Vital Signs: Vital Signs - 24 hr 09/11/23 14:00 09/11/23 16:45 09/11/23 16:00 Temperature 100 F H Pulse Rate 109 H 83 Respiratory Rate 19 Blood Pressure 126/70 Pulse Oximetry 98 Oxygen Delivery Fraction of Inspired Oxygen 35 09/11/23 16:0
[2023-09-12] MEDS: EPOETIN ALFA-EPBX 10,000 UNITS/ML VIAL 10000 UNITS SUB-Q (14:05)
--- NOTE | 2023-09-12 14:21 | PCFNICU ---
ICU Rounding Note: Pt current nutrition is TPN at 40 ml/hr. Last recorded weight is 127.3 kg, up from 108 kg on admit. Bowel Motility: colostomy-no output reported. Labs Reviewed: Glu 119, BUN 103,Cr 4.2, GFR 14, Hct 24.6,Hgb 7.9 Meds Noted:Protonix, Bumex, Diflucan, Clinimix E 5/15, 20% Lipid Emulsion Skin: WNL Additional Notes: Patient current with Trach. TPN remains at 1/2 rate, providing 1180 kcals/48 gms protein. Renal labs have increased, nephrology consulted. Discussions in rounds regarding colostomy possibly needing irrigated again due to limited output. TG noted at 226 on 09/11 down from 267, would recommend to continue lipids at this time. TPN at 40 ml/hr meeting 59% kcal needs at 49% protein needs. When medically able recommend transition to trickle feedings of Vital AF 1.2 at 20 ml/hr. Following daily in ICU rounds. Will monitor weight, labs, skin, meds, TPN every Saturday and Saturday.
--- NOTE | 2023-09-12 14:29 | PC.NURSE ---
discussed with Dr. Mendez via phone of conserns for posibly needing a longer trach and the need to kepp air in the balloon, stated he would be in Saturday
[2023-09-12] MEDS: AMINO ACIDS 5%/D15W/E-LYTES/CA 2,000 ML with MULTIVITAMINS-12 INJ VIAL 1 2.5 ML, MULTIV... 80 ML IV CONT (14:54)
[2023-09-12] MEDS: FAT EMULSIONS IV 20% 250 ML 20.8 ML IVPB (14:54)
[2023-09-12 18:13] LABS: Glucose Point of Care 136 mg/dl (65-105)
--- NOTE | 2023-09-12 18:16 | PM.PNGS ---
Progress Note: A&P Assessment and Plan (1) Abdominal abscess: Status: Acute Assessment and Plan: Drained yesterday. Cultures pending. Temperature has come down to normal since the drainage procedure. He was also more alert and awake today. (2) S/P partial colectomy: Code(s): Z90.49 - Acquired absence of other specified parts of digestive tract Status: Acute Assessment and Plan: Abscesses as above. 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 Will be irrigated again tomorrow. 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 But not getting worse. Continue collagenase dressings. Fecal stream has been diverted. (5) Respiratory failure: Qualifiers: Chronicity: chronic Respiratory failure complication: hypercapnia Qualified Code(s): J96.12 - Chronic respiratory failure with hypercapnia Code(s): J96.90 - Respiratory failure, unspecified, unspecified whether with hypoxia or hypercapnia Status: Chronic Assessment and Plan: Stable (6) Protein-calorie malnutrition, severe: Code(s): E43 - Unspecified severe protein-calorie malnutrition Status: Acute Assessment and Plan: Continue TPN. Will go back to 80 cc an hour tomorrow. (7) MOISÉS (acute kidney injury): Code(s): N17.9 - Acute kidney failure, unspecified Status: Acute Assessment and Plan: Although patient making urine, BUN and creatinine continue to increase. Nephrology contemplating dialysis. If no change in this trend, I think dialysis would be a good idea. Subjective Subjective Date/Time Seen: 09/12/23 18:16 Patient reports: no bowel movement and afebrile Review of Systems Review of Systems: ROS unobtainable: Yes unobtainable due to medical condition Exam Const: General: lethargic, tired appearing and edematous GI: Inspection: Abdominal wall edema, distended, incision (No signs infection, slowly healing) and other (Purulence from 1 drain, greenish fluid from the other) GI Palp: Yes Firmness to palpation present (GI) and Yes Tenderness to palpation present (GI) Auscultation: absent bowel sounds Objective Data Vital Signs Vital Signs: Vital Signs - 24 hr 09/11/23 20:25 09/11/23 20:55 09/11/23 20:00 Temperature 37.9 C H 37.8 C H Pulse Rate 100 107 H Respiratory Rate 24 H Blood Pressure 134/82 Pulse Oximetry 95 96 Oxygen Delivery Mechanical Ventilation Fraction of Inspired Oxygen 30 09/11/23 22:00 09/11/23 20:00 09/11/23 20:00 Temperature 37.6 C Pulse Rate 96 96 Respiratory Rate 23 H 23 H Blood Pressure 108/61 Pulse Oximetry 95 95 Oxygen Delivery Mechanical Ventilation Fraction of Inspired Oxygen 30 30 09/11/23 20:00 09/11/23 22:00 09/11/23 21:25 Temperature 37.7 C H Pulse Rate 107 H 88 Respiratory Rate Blood Pressure Pulse Oximetry Oxygen Delivery Fraction of Inspired Oxygen 09/12/23 00:00 09/12/23 00:00 09/12/23 00:00 Temperature 37.3 C Pulse Rate 86 86 Respiratory Rate 23 H 23 H Blood Pressure 116/67 Pulse Oximetry 95 95 Oxygen Delivery Mechanical Ventilation Fraction of Inspired Oxygen 30 30 09/12/23 00:00 09/11/23 23:25 09/12/23 02:20 Temperature Pulse Rate 84 93 103 H Respiratory Rate Blood Pressure Pulse Oximetry 95 96 Oxygen Delivery Mechanical Ventilation Mechanical Ventilation Fraction of Inspired Oxygen 30 30 09/12/23 02:00 09/12/23 02:00 09/12/23 03:49 Temperature 37.3 C Pulse Rate 95 98 Respiratory Rate 20 Blood Pressure 117/77 Pulse Oximetry 92 Oxygen Delivery Fraction of Inspired Oxygen 30 09/12/23 03:56 09/12/23 04:00 09/12/23 05:00 Temperature 36.9 C Pulse Rate 88 86 95 Respiratory Rate 22 H 20 Blood Pressu
--- NOTE | 2023-09-12 18:29 | PM.IMPN ---
Progress Note: A&P Assessment and Plan (1) Respiratory failure: Qualifiers: Chronicity: chronic Respiratory failure complication: hypercapnia Qualified Code(s): J96.12 - Chronic respiratory failure with hypercapnia Code(s): J96.90 - Respiratory failure, unspecified, unspecified whether with hypoxia or hypercapnia Status: Acute Assessment and Plan: Patient had acute respiratory failure earlier felt to be multifactorial due to fluid overload, possible aspiration pneumonia vs atelectasis. CXR 08/09 showed mild pulm edema, small left pleural effusion, right opacities worsening concerning for pneumonia--CT less concerning for PNA. MRSA swab negative 08/09: Linezolid added to cover Enterococcus species growing from cholecystostomy tube Lasix then Bumex was given with improved resp status. Weaned to room air. He remained on IV Bumex. ------ On the morning of 08/15, patient developed acute respiratory distress. ABG 7.37/62/58 so BiPAP ordered Repeat ABG 7.15/101/91 so patient intubated. CXR reviewed showing diffuse lung disease c/w edema vs PNA vs atelectasis Cumulative fluid balance at that time was +2.7L with excellent UOP past few days prior Consider pulmonary edema vs ARDS vs aspiration but NPO so felt less likely. Good UOP with Bumex but UOP dropping off Trach placed 08/30; He remains on mechanical ventilation Trach had to be replaced on 09/09 CXR 09/10 showing left base atatelectasis. CT abd 09/11 showing small effusions with dependent airspace opacities. Appreciate inspector exhaust emissions and ENT input. Wean vent as tolerated (2) Sepsis: Qualifiers: Sepsis type: sepsis due to unspecified organism Sepsis acute organ dysfunction status: with acute organ dysfunction Severe sepsis acute organ dysfunction type: acute renal failure Acute renal failure type: unspecified Severe sepsis shock status: without septic shock Qualified Code(s): A41.9 - Sepsis, unspecified organism; R65.20 - Severe sepsis without septic shock; N17.9 - Acute kidney failure, unspecified Code(s): A41.9 - Sepsis, unspecified organism Status: Acute Assessment and Plan: Currently being treated for cholecystitis + pelvic abscesses UCx 08/05, 08/06, 08/16 negative GB Cx 08/06 growing enterococcus but unable to perform sensitivities Abscess Cx 08/06 Prevotella that is beta-lactamase positive BCx 08/06 negative. MRSA nasal swab 08/09 negative BCx 08/10 negative. Fungal cx 08/11 pending (?) CT A/P 08/13 showing multiple intraperitoneal abscesses similar to 08/09 with worsening mass involving the right inguinal canal and right scrotum. 08/14: Multiple Abd drains placed with culture growing H. parainfluenza and prevotella BCx 08/[address] A/P 08/18 slight increase in fluid collection adjacent to LLQ pigtail drain measuring 3 cm, other fluid collections are either stable or slightly smaller in size, stable right groin infected hematoma, cystitis versus bladder wall thickening, Weathers catheter in place but balloon not visualized and mild fecal impaction. Tx with meropenem, linezolid. Micafungin added 08/11 he completed a course of linezolid stopped 08/19. meropenem changed to Cefepime and Flagyl. Flagyl and Cefepime stopped 08/23 Micafungin stopped 08/25 after 14 days course Zosyn started 08/23 through 08/26 WBC remaining normal and fevers resolved now All abx stopped on 08/26 -------- Fevers so recultered and Abx resumed 09/01 UE/LE Dopplers negative for DVT 09/07 UCx growing ketan parapsilosis Paracentesis 09/09 returning purulent fluid with cx growing Bacteroides, klebsiella pneumoniae. CT A/P 09/11 showing LLQ abscess 14cm and Pelvic abscess 12cm. Cx showing GNB Abd and pelvic drains placed 09/11 Scrotal US 09/12 showing 1cm left epididymis mass likely benign and small left hydrocele with septation. Not felt to have scrotal abscess Continue IV abx with Rocephin and Flagyl and antifungal with Diflucan (3) Enterocutaneous fistul
[2023-09-12 23:08] LABS: Glucose Point of Care 131 mg/dl (65-105)
[2023-09-13] VITALS (21 sets, daily range): BP systolic 104–133; BP diastolic 65–90; PULSE 73–99; RESP 16–30; TEMP 36.8–37.2; O2SAT 95–99
[2023-09-13] MEDS: LEVOTHYROXINE SODIUM INJ 100 MCG/5 ML VIAL 50 MCG IV PUSH (05:54)
[2023-09-13] MEDS: metroNIDAZOLE 500 MG/ISO 100ML 500 MG/100 ML BAG 100 MG IVPB ×3 (05:54→20:55)
[2023-09-13] MEDS: CENTRAL LINE FLUSH 10 ML IV PUSH ×3 (05:55→20:54)
[2023-09-13 05:58] LABS: Hematocrit 27.8 % (42.0-52.0); Hemoglobin 8.9 g/dL (14.0-18.0); Mean Corpuscular Hemoglobin 30.1 pg (26-34); Mean Corpuscular Volume 93.9 fl (80-100); Mean Platelet Volume 11.3 fl (7.4-10.4); Platelet Count Result 284 k/mm3 (150-375); Red Blood Count 2.96 M/mm3 (4.6-6.20); Red Cell Distribution Width 15.9 % (11.5-14.5); White Blood Count 12.8 K/mm3 (4.5-10.0)
[2023-09-13 06:25] LABS: Alanine Aminotransferase 55 U/L (6-50); Albumin Level 3.8 g/dL (3.5-5.1); Alkaline Phosphatase 180 U/L (38-126); Anion Gap 14 mmol/L (8-16); Aspartate Amino Transferase 54 U/L (17-59); Bilirubin,Total 1.8 mg/dL (0.2-1.3); Blood Urea Nitrogen 114 mg/dL (9-20); Carbon Dioxide 17 mmol/L (22-30); Chloride 106 mmol/L (98-107); Estimated CRCL calculation 17 ml/min; Estimated Glomerular Filt Rate 13; Glucose 136 mg/dL (65-110); Magnesium 2.6 mg/dL (1.6-2.3); Phosphorus 5.1 mg/dL (2.5-4.5); Potassium 4.1 mmol/L (3.4-5.0); Sodium 137 mmol/L (137-145)
--- NOTE | 2023-09-13 08:29 | PM.PNGS ---
Progress Note: A&P Assessment and Plan (1) Abdominal abscess: Status: Acute Assessment and Plan: Abscesses appear to be drained. Greenish material suspicious for bowel leakage. Not sure of this because he had same type of drainage after his 1st surgery and on reoperation no evidence of a bowel injury was found. Continue to drain and get follow-up CT in 1-2 days. Fevers have resolved once abscesses drained. He has also been more awake. (2) MOISÉS (acute kidney injury): Code(s): N17.9 - Acute kidney failure, unspecified Status: Acute Assessment and Plan: BUN continues to climb. Creatinine only slightly higher. Okay from my standpoint to dialyze if recommended from Nephrology. (3) S/P partial colectomy: Code(s): Z90.49 - Acquired absence of other specified parts of digestive tract Status: Acute Assessment and Plan: Sigmoidectomy. Path showed diverticulitis with perforation and abscess. Was never seen on CT scans. Patient still does not have bowel function. Continuing TPN at normal rate. 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 Will be area gated again today. Still no output. 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 Continue collagenase or Santyl dressing changes daily (6) Respiratory failure: Qualifiers: Chronicity: chronic Respiratory failure complication: hypercapnia Qualified Code(s): J96.12 - Chronic respiratory failure with hypercapnia Code(s): J96.90 - Respiratory failure, unspecified, unspecified whether with hypoxia or hypercapnia Status: Acute Assessment and Plan: Stable with tracheostomy on ventilator. Subjective Subjective Date/Time Seen: 09/13/23 08:29 Patient reports: no bowel movement (No air or stool in colostomy appliance.), afebrile and other (Arouses but still on vent with tracheostomy.) Review of Systems Review of Systems: ROS unobtainable: Yes unobtainable due to medical condition Exam Const: General: cooperative, comfortable, awake, lethargic and tired appearing Nutritional Appearance: edematous GI: Inspection: distended, incision (Dry, no redness, appears to be healing adequately.) and other (Both YOEL drains draining greenish tinged fluid. Still edematous) GI Palp: Yes Firmness to palpation present (GI) and Yes Tenderness to palpation present (GI) Auscultation: absent bowel sounds Objective Data Vital Signs Vital Signs: Vital Signs - 24 hr 09/12/23 10:00 09/12/23 10:00 09/12/23 10:37 Temperature 37.1 C Pulse Rate 85 85 93 Respiratory Rate 20 Blood Pressure 128/81 Pulse Oximetry 96 95 Oxygen Delivery Mechanical Ventilation Fraction of Inspired Oxygen 30 09/12/23 12:00 09/12/23 12:00 09/12/23 12:00 Temperature 37.2 C Pulse Rate 95 95 Respiratory Rate 23 H Blood Pressure 137/67 Pulse Oximetry 97 Oxygen Delivery Fraction of Inspired Oxygen 30 09/12/23 12:00 09/12/23 14:07 09/12/23 14:00 Temperature Pulse Rate 95 97 98 Respiratory Rate 23 H Blood Pressure Pulse Oximetry 97 97 Oxygen Delivery Mechanical Ventilation Mechanical Ventilation Fraction of Inspired Oxygen 30 30 09/12/23 14:00 09/12/23 16:00 09/12/23 16:00 Temperature 37.3 C Pulse Rate 97 97 Respiratory Rate 20 Blood Pressure 140/76 Pulse Oximetry 97 Oxygen Delivery Fraction of Inspired Oxygen 30 09/12/23 16:00 09/12/23 16:00 09/12/23 16:43 Temperature 37.2 C Pulse Rate 97 97 100 Respiratory Rate 30 H 30 H Blood Pressure 137/87 Pulse Oximetry 97 97 97 Oxygen Delivery Mechanical Ventilation Mechanical Ventilation Fraction of Inspired Oxygen 30 30 09/12/23 18:00 09/12/23 20:00 09/12/23 20:35 Temperature 37.2 C 37.2 C Pulse Rate 102 H 97 94 Respiratory Rate 20 29 H B
[2023-09-13] MEDS: cefTRIAXone 2 GM/NS 100 ML 2 GM/100 ML BAG IVPB (10:04)
[2023-09-13] MEDS: ASPIRIN 81 MG CHEWABLE TABLET 162 MG PO (10:04)
[2023-09-13] MEDS: SODIUM BICARBONATE 8.4% 50 MEQ/50 ML SYRINGE IV PUSH (10:04)
[2023-09-13] MEDS: PANTOPRAZOLE SODIUM IV 40 MG VIAL IV PUSH ×2 (10:05→20:43)
[2023-09-13] MEDS: ENOXAPARIN 30 MG/0.3 ML SYRINGE SUB-Q (10:05)
[2023-09-13] MEDS: MINERAL OIL/WHITE PETROLATUM OINTMENT 1 APPLIC EACH EYE ×2 (10:05→20:43)
[2023-09-13] MEDS: COLLAGENASE OINT 30 GM TUBE 1 APPLIC TOPICAL (10:05)
[2023-09-13 12:13] LABS: Glucose Point of Care 135 mg/dl (65-105)
--- NOTE | 2023-09-13 13:14 | P.PNNP_ITS ---
Progress Note: A&P Assessment and Plan (1) MOISÉS (acute kidney injury): Code(s): N17.9 - Acute kidney failure, unspecified Status: Acute Assessment and Plan: * multiple episodes noted since admission * multifactorial issues present: * prerenal factors * relative hypotension (sometimes as low as 80s systolic) * ongoing use of ARB (losartan) * IV ibuprofen use * contrast exposure (CT scan on 08/04/23) * recurrent infection/sepsis (suspect major component) * currently major issues are blood pressure and sepsis. * evaluation during this hospital stay: * renal ultrasound okay * urine electrolytes prerenal * urine eosinophils negative * CPK mildly elevated (but not likely to affect kidney function) * BUN and creatinine sal again. Urine output is doing pretty well. * The patient has no swelling. His FiO2 is 30%. * Will hold off on diuretics. * He may need to be dialyzed but he is very frail right now. * Discussed with Dr. Whitfield. He also discussed with the patient's daughter and all are comfortable with waiting for little while to see if drainage of the abscesses helps the kidney function. (2) Sepsis: Qualifiers: Sepsis type: sepsis due to unspecified organism Sepsis acute organ dysfunction status: with acute organ dysfunction Severe sepsis acute organ dysfunction type: acute renal failure Acute renal failure type: unspecified Severe sepsis shock status: without septic shock Qualified Code(s): A41.9 - Sepsis, unspecified organism; R65.20 - Severe sepsis without septic shock; N17.9 - Acute kidney failure, unspecified Code(s): A41.9 - Sepsis, unspecified organism Status: Acute Assessment and Plan: * remains hemodynamically stable * on no pressors * abdominal fluid showed Bacteroides but not B fragilis, and Klebsiella. * multiple issues/etiologies: * recurrent abdominal abscesses as noted by imaging * peritonitis (see recent ascites fluid cultures) * IR placed abdominal drains * on Ceftriaxone and Flagyl (3) Acute respiratory failure: Qualifiers: Respiratory failure complication: hypoxia and hypercapnia Qualified Code(s): J96.01 - Acute respiratory failure with hypoxia; J96.02 - Acute respiratory failure with hypercapnia Code(s): J96.00 - Acute respiratory failure, unspecified whether with hypoxia or hy percapnia Status: Acute Assessment and Plan: * s/p tracheostomy for prolonged ventilator weaning * complicated by weakness and severe deconditioning * on 30% oxygen. (4) Pelvic abscess in male: Code(s): K65.1 - Peritoneal abscess Status: Acute Assessment and Plan: * previous drains removed * s/p diverting colostomy * Drain placed (5) Decubitus ulcer: Code(s): L89.90 - Pressure ulcer of unspecified site, unspecified stage Status: Acute Assessment and Plan: * s/p debridement and diverting colostomy * local wound care * Surgery following (6) Anemia: Qualifiers: Anemia type: other cause Other causes of anemia: chronic disease, other Qualified Code(s): D63.8 - Anemia in other chronic diseases classified elsewhere Code(s): D64.9 - Anemia, unspecified Status: Acute Assessment and Plan: * due to operative interventions, acute illness and MOISÉS * hemoglobin Up to 8.9 * getting Epogen Subjective Date/time seen: 09/13/23 13:14 Interval history: Omar is unresponsive. On the ventilator. On pres
--- NOTE | 2023-09-13 13:14 | PM.PNNEP ---
Progress Note: A&P Assessment and Plan (1) MOISÉS (acute kidney injury): Code(s): N17.9 - Acute kidney failure, unspecified Status: Acute Assessment and Plan: multiple episodes noted since admission multifactorial issues present: prerenal factors relative hypotension (sometimes as low as 80s systolic) ongoing use of ARB (losartan) IV ibuprofen use contrast exposure (CT scan on 08/04/23) recurrent infection/sepsis (suspect major component) currently major issues are blood pressure and sepsis. evaluation during this hospital stay: renal ultrasound okay urine electrolytes prerenal urine eosinophils negative CPK mildly elevated (but not likely to affect kidney function) BUN and creatinine sal again. Urine output is doing pretty well. The patient has no swelling. His FiO2 is 30%. Will hold off on diuretics. He may need to be dialyzed but he is very frail right now. Discussed with Dr. Whitfield. He also discussed with the patient's daughter and all are comfortable with waiting for little while to see if drainage of the abscesses helps the kidney function. (2) Sepsis: Qualifiers: Sepsis type: sepsis due to unspecified organism Sepsis acute organ dysfunction status: with acute organ dysfunction Severe sepsis acute organ dysfunction type: acute renal failure Acute renal failure type: unspecified Severe sepsis shock status: without septic shock Qualified Code(s): A41.9 - Sepsis, unspecified organism; R65.20 - Severe sepsis without septic shock; N17.9 - Acute kidney failure, unspecified Code(s): A41.9 - Sepsis, unspecified organism Status: Acute Assessment and Plan: remains hemodynamically stable on no pressors abdominal fluid showed Bacteroides but not B fragilis, and Klebsiella. multiple issues/etiologies: recurrent abdominal abscesses as noted by imaging peritonitis (see recent ascites fluid cultures) IR placed abdominal drains on Ceftriaxone and Flagyl (3) Acute respiratory failure: Qualifiers: Respiratory failure complication: hypoxia and hypercapnia Qualified Code(s): J96.01 - Acute respiratory failure with hypoxia; J96.02 - Acute respiratory failure with hypercapnia Code(s): J96.00 - Acute respiratory failure, unspecified whether with hypoxia or hypercapnia Status: Acute Assessment and Plan: s/p tracheostomy for prolonged ventilator weaning complicated by weakness and severe deconditioning on 30% oxygen. (4) Pelvic abscess in male: Code(s): K65.1 - Peritoneal abscess Status: Acute Assessment and Plan: previous drains removed s/p diverting colostomy Drain placed (5) Decubitus ulcer: Code(s): L89.90 - Pressure ulcer of unspecified site, unspecified stage Status: Acute Assessment and Plan: s/p debridement and diverting colostomy local wound care Surgery following (6) Anemia: Qualifiers: Anemia type: other cause Other causes of anemia: chronic disease, other Qualified Code(s): D63.8 - Anemia in other chronic diseases classified elsewhere Code(s): D64.9 - Anemia, unspecified Status: Acute Assessment and Plan: due to operative interventions, acute illness and MOISÉS hemoglobin Up to 8.9 getting Epogen Subjective Date/time seen: 09/13/23 13:14 Interval history: Omar is unresponsive. On the ventilator. On pressors. Exam Narrative: General: elderly but WD/WN male in NAD Heart: IRRR, normal S1 and S2; no rub or gallop Lungs: breath sounds symmetric and mildly coarse Abdomen: mild distension with decreased bowel sounds; colostomy noted in LLQ Extremities: 1+ bilateral pre sacral edema Skin: no acute rash Or subcu nodules Objective Data Vital Signs Vital Signs: Vital Signs - 24 hr 09/12/23 14:07 09/12/23 14:00 09/12/23 14:00 Temperature
--- NOTE | 2023-09-13 13:33 | PCNFU ---
Nutrition Follow-Up Complete: Swallowing Difficulties as related to mentation/risk of aspiration as evidenced by NPO. Goal: Meet estimated nutritional needs Patient is progressing towards goal. We will continue current goal. Pt current nutrition is TPN at 80 ml/hr. Last recorded weight is 127 kg Bowel Motility:colostomy-irrigated today increased output noted. Labs Reviewed: Glu 136, BUN 114, GFR 13, Cr 4.3 Meds Noted:Bumex, Clinimix E 5/15 at 80 ml/hr with 250 ml of 20% Lipid Emulsion, Rocephin Skin: WNL Additional Notes: Patient current with Trach. TPN increased to 80 ml/hr today providing 1863 kcals/96 gms protein. Colostomy irrigated today, increased output noted. If trickle feedings start would recommend Vital AF 1.2 at 20 ml/hr. Will montior weight, labs, skin, meds, TPN every Saturday and Saturday.
--- NOTE | 2023-09-13 14:04 | PM.PNGS ---
Progress Note: A&P Assessment and Plan (1) History of tracheostomy: Code(s): Z98.890 - Other specified postprocedural states Status: Acute Assessment and Plan: keep the trach ties very tight for the time being 1 drain sponge max beneath trach face plate. If the trach becomes positional in the trach ties are very tight actually recommend loosening them. Flexible tracheoscopy demonstrated the trachea slightly angled into the anterior wall. This is okay unless there is issues with ventilation. Subjective Subjective Date/Time Seen: 09/13/23 14:04 Interval history: trach appears positional Exam Narrative: trach slightly loose 2 trach ties beneath trach face plate Objective Data Vital Signs Vital Signs: Vital Signs - 24 hr 09/12/23 14:07 09/12/23 16:00 09/12/23 16:00 Temperature Pulse Rate 97 97 Respiratory Rate Blood Pressure Pulse Oximetry 97 Oxygen Delivery Mechanical Ventilation Fraction of Inspired Oxygen 30 30 09/12/23 16:00 09/12/23 16:00 09/12/23 16:43 Temperature 37.2 C Pulse Rate 97 97 100 Respiratory Rate 30 H 30 H Blood Pressure 137/87 Pulse Oximetry 97 97 97 Oxygen Delivery Mechanical Ventilation Mechanical Ventilation Fraction of Inspired Oxygen 30 30 09/12/23 18:00 09/12/23 20:00 09/12/23 20:35 Temperature 37.2 C 37.2 C Pulse Rate 102 H 97 94 Respiratory Rate 20 29 H Blood Pressure 129/77 133/88 Pulse Oximetry 96 95 96 Oxygen Delivery Mechanical Ventilation Fraction of Inspired Oxygen 30 09/12/23 20:00 09/12/23 20:00 09/12/23 20:00 Temperature Pulse Rate 88 Respiratory Rate Blood Pressure Pulse Oximetry 96 Oxygen Delivery Mechanical Ventilation Fraction of Inspired Oxygen 30 30 09/12/23 21:35 09/12/23 23:27 09/12/23 23:27 Temperature Pulse Rate 89 Respiratory Rate 22 H Blood Pressure 134/85 Pulse Oximetry 97 97 Oxygen Delivery Mechanical Ventilation Fraction of Inspired Oxygen 30 30 09/12/23 23:39 09/13/23 01:28 09/13/23 00:00 Temperature 37.2 C Pulse Rate 88 97 99 Respiratory Rate 24 H 16 Blood Pressure 137/80 129/67 Pulse Oximetry 97 97 Oxygen Delivery Fraction of Inspired Oxygen 09/12/23 23:38 09/13/23 03:15 09/13/23 04:00 Temperature Pulse Rate 92 91 Respiratory Rate Blood Pressure Pulse Oximetry 97 96 Oxygen Delivery Mechanical Ventilation Mechanical Ventilation Mechanical Ventilation Fraction of Inspired Oxygen 30 30 30 09/13/23 04:00 09/13/23 04:00 09/13/23 04:00 Temperature 37.2 C Pulse Rate 82 90 Respiratory Rate 16 Blood Pressure 133/83 Pulse Oximetry 98 Oxygen Delivery Fraction of Inspired Oxygen 30 09/13/23 05:14 09/13/23 05:38 09/13/23 08:00 Temperature 37.0 C Pulse Rate 87 91 85 Respiratory Rate 26 H 24 H Blood Pressure 126/66 127/77 Pulse Oximetry 96 98 Oxygen Delivery Mechanical Ventilation Fraction of Inspired Oxygen 30 09/13/23 09:24 09/13/23 09:57 09/13/23 12:00 Temperature 37.1 C Pulse Rate 90 96 86 Respiratory Rate 25 H 25 H Blood Pressure 104/65 113/66 Pulse Oximetry 96 96 97 Oxygen Delivery Mechanical Ventilation Fraction of Inspired Oxygen 30 09/13/23 13:57 Temperature Pulse Rate 88 Respiratory Rate 26 H Blood Pressure 116/68 Pulse Oximetry 96 Oxygen Delivery Fraction of Inspired Oxygen Intake/Output Intake/Output: Intake & Output 09/10/23 09/11/23 09/12/23 09/13/23 23:59 23:59 23:59 23:59 Intake Total 2755 3055 2955 350 Output Total 2300 2075 3320 1960 Balance [phone] Meds/Results Medications: Active Medications Generic Name Dose Route Start Last Admin Trade Name Freq PRN Reason Stop Dose Admin Acetaminophen 650 mg 08/17/23 07:32 09/11/23 20:25 Acetaminophen Elixir 325 Mg/10.15 Ml Udc FEED TUBE 650 mg Q4H PRN Administration Mild Pain (1-3) or Fever Albuterol 2.5 mg 08/28/23 09:46 Albuter
--- NOTE | 2023-09-13 14:05 | P.PCNBED_ITS ---
Procedures Other Procedures Procedure 1: Other Procedure: Flexible tracheoscopy flexible laryngoscope passed to the trachea shows that when the trach has a very tight the trachea slightly curved into the anterior tracheal wall. That being said ventilation was okay. Patient tolerated proced ure well
[2023-09-13] MEDS: FAT EMULSIONS IV 20% 250 ML 20.8 ML IVPB (14:53)
[2023-09-13] MEDS: AMINO ACIDS 5%/D15W/E-LYTES/CA 2,000 ML with MULTIVITAMINS-12 INJ VIAL 1 2.5 ML, MULTIV... 80 ML IV CONT (14:54)
--- NOTE | 2023-09-13 18:14 | PM.IMPN ---
Progress Note: A&P Assessment and Plan (1) Respiratory failure: Qualifiers: Chronicity: chronic Respiratory failure complication: hypercapnia Qualified Code(s): J96.12 - Chronic respiratory failure with hypercapnia Code(s): J96.90 - Respiratory failure, unspecified, unspecified whether with hypoxia or hypercapnia Status: Acute Assessment and Plan: Patient admitted for elective repair of a large right inguinal hernia on 08/02/23. Post-operatively, he developed ileus, peritonitis, AFib/RVR, MOISÉS and HoTN. He was moved to the ICU on 08/06 for HoTN. On the morning of 08/15, patient developed acute respiratory distress. ABG 7.37/62/58 so BiPAP ordered but repeat ABG 7.15/101/91 so patient intubated. CXR reviewed showing diffuse lung disease c/w edema vs PNA vs atelectasis Cumulative fluid balance at that time was +2.7L with excellent UOP past few days prior Consider pulmonary edema vs ARDS vs aspiration but NPO so felt less likely. Trach placed 08/30; He remains on mechanical ventilation Trach had to be replaced on 09/09 CXR 09/10 showing left base atatelectasis. CT abd 09/11 showing small effusions with dependent airspace opacities. ENT peformed tracheoscopy showing the trachea does curve into the anterio tracheal wall. Appreciate [employer] consultant and ENT input. Wean vent as tolerated (2) Sepsis: Qualifiers: Sepsis type: sepsis due to unspecified organism Sepsis acute organ dysfunction status: with acute organ dysfunction Severe sepsis acute organ dysfunction type: acute renal failure Acute renal failure type: unspecified Severe sepsis shock status: without septic shock Qualified Code(s): A41.9 - Sepsis, unspecified organism; R65.20 - Severe sepsis without septic shock; N17.9 - Acute kidney failure, unspecified Code(s): A41.9 - Sepsis, unspecified organism Status: Acute Assessment and Plan: Currently being treated for cholecystitis + pelvic abscesses UCx 08/05, 08/06, 08/16 negative GB Cx 08/06 growing enterococcus but unable to perform sensitivities Abscess Cx 08/06 Prevotella that is beta-lactamase positive BCx 08/06 negative. MRSA nasal swab 08/09 negative BCx 08/10 negative. Fungal cx 08/11 pending (?) CT A/P 08/13 showing multiple intraperitoneal abscesses similar to 08/09 with worsening mass involving the right inguinal canal and right scrotum. 08/14: Multiple Abd drains placed with culture growing H. parainfluenza and prevotella BCx 08/[address] A/P 08/18 slight increase in fluid collection adjacent to LLQ pigtail drain measuring 3 cm, other fluid collections are either stable or slightly smaller in size, stable right groin infected hematoma, cystitis versus bladder wall thickening, Weathers catheter in place but balloon not visualized and mild fecal impaction. Tx with meropenem, linezolid. Micafungin added 08/11 he completed a course of linezolid stopped 08/19. meropenem changed to Cefepime and Flagyl. Flagyl and Cefepime stopped 08/23 Micafungin stopped 08/25 after 14 days course Zosyn started 08/23 through 08/26 WBC remaining normal and fevers resolved now All abx stopped on 08/26 -------- Fevers so recultered and Abx resumed 09/01 UE/LE Dopplers negative for DVT 09/07 UCx growing ketan parapsilosis Paracentesis 09/09 returning purulent fluid with cx growing Bacteroides, klebsiella pneumoniae. CT A/P 09/11 showing LLQ abscess 14cm and Pelvic abscess 12cm. Cx showing GNB Abd and pelvic drains placed 09/11 -- 1st cx: klebsiella pneumoniae -- 2nd cx: Yeast Scrotal US 09/12 showing 1cm left epididymis mass likely benign and small left hydrocele with septation. 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
[2023-09-13 18:26] LABS: Glucose Point of Care 146 mg/dl (65-105)
[2023-09-14] VITALS (20 sets, daily range): BP systolic 124–145; BP diastolic 65–92; PULSE 75–98; RESP 15–27; TEMP 36.6–37.1; O2SAT 93–99
[2023-09-14 00:11] LABS: Glucose Point of Care 147 mg/dl (65-105)
[2023-09-14] MEDS: CENTRAL LINE FLUSH 10 ML IV PUSH ×3 (05:27→20:59)
[2023-09-14] MEDS: metroNIDAZOLE 500 MG/ISO 100ML 500 MG/100 ML BAG 100 MG IVPB ×3 (05:52→20:59)
[2023-09-14] MEDS: LEVOTHYROXINE SODIUM INJ 100 MCG/5 ML VIAL 50 MCG IV PUSH (05:52)
[2023-09-14 05:54] LABS: Hematocrit 27.1 % (42.0-52.0); Hemoglobin 8.8 g/dL (14.0-18.0); Mean Corpuscular HGB Conc 32.5 g/dl (32-36); Mean Corpuscular Hemoglobin 30.1 pg (26-34); Mean Corpuscular Volume 92.8 fl (80-100); Mean Platelet Volume 11.2 fl (7.4-10.4); Platelet Count Result 304 k/mm3 (150-375); Red Blood Count 2.92 M/mm3 (4.6-6.20); Red Cell Distribution Width 15.9 % (11.5-14.5); White Blood Count 12.8 K/mm3 (4.5-10.0)
[2023-09-14 06:00] LABS: Alanine Aminotransferase 47 U/L (6-50); Albumin Level 3.5 g/dL (3.5-5.1); Alkaline Phosphatase 189 U/L (38-126); Anion Gap 14 mmol/L (8-16); Aspartate Amino Transferase 44 U/L (17-59); Bilirubin,Total 1.1 mg/dL (0.2-1.3); Blood Urea Nitrogen 119 mg/dL (9-20); Carbon Dioxide 19 mmol/L (22-30); Chloride 105 mmol/L (98-107); Estimated CRCL calculation 16 ml/min; Estimated Glomerular Filt Rate 13; Glucose 153 mg/dL (65-110); Magnesium 2.6 mg/dL (1.6-2.3); Potassium 3.9 mmol/L (3.4-5.0); Sodium 138 mmol/L (137-145); Triglycerides 124 mg/dL (<150)
[2023-09-14 07:53] LABS: Basophils Absolute Manual 0.25 K/mm3 (0.0-0.1); Basophils Percent Manual 2 % (0-1); Eosinophils Absolute Manual 0.51 K/mm3 (0.02-0.5); Eosinophils Percent Manual 4 % (0-4); Monocytes Absolute Manual 0.12 K/mm3 (0.1-0.90); Monocytes Percent Manual 1 % (3-9); Neutrophils Percent Manual 75 % (46-73); Platelet Estimate Adequate (Adequate); Schistocytes None Seen (NORMAL); Total Cells Counted 100
[2023-09-14 07:54] LABS: Anisocytosis 1+ (NORMAL); Hypochromasia 1+ (NORMAL)
[2023-09-14] MEDS: ENOXAPARIN 30 MG/0.3 ML SYRINGE SUB-Q (08:35)
[2023-09-14] MEDS: MINERAL OIL/WHITE PETROLATUM OINTMENT 1 APPLIC EACH EYE ×2 (08:35→20:48)
[2023-09-14] MEDS: EPOETIN ALFA-EPBX 10,000 UNITS/ML VIAL 10000 UNITS SUB-Q (08:36)
[2023-09-14] MEDS: COLLAGENASE OINT 30 GM TUBE 1 APPLIC TOPICAL (08:36)
[2023-09-14] MEDS: ASPIRIN 81 MG CHEWABLE TABLET 162 MG PO (08:36)
[2023-09-14] MEDS: cefTRIAXone 2 GM/NS 100 ML 2 GM/100 ML BAG IVPB (08:36)
[2023-09-14] MEDS: PANTOPRAZOLE SODIUM IV 40 MG VIAL IV PUSH ×2 (08:41→20:48)
--- NOTE | 2023-09-14 09:46 | P.PNNP_ITS ---
Progress Note: A&P Assessment and Plan (1) MOISÉS (acute kidney injury): Code(s): N17.9 - Acute kidney failure, unspecified Status: Acute Assessment and Plan: * multiple episodes noted since admission * multifactorial issues present: * prerenal factors * relative hypotension (sometimes as low as 80s systolic) * ongoing use of ARB (losartan) * IV ibuprofen use * contrast exposure (CT scan on 08/04/23) * recurrent infection/sepsis (suspect major component) * currently major issues are blood pressure and sepsis. * evaluation during this hospital stay: * renal ultrasound okay * urine electrolytes prerenal * urine eosinophils negative * CPK mildly elevated (but not likely to affect kidney function) * BUN and creatinine about the same today for the 1st time in a few days. * Temperature is down. * The patient has no swelling. His FiO2 is 30%. * Continue to watch off diuretics. * He may need to be dialyzed but he is very frail right now. * Discussed with Dr. Whitfield. * Since labs are stable and his urine output is good, plus his oxygenation is good a will hold off on dialysis for the next few days. (2) Sepsis: Qualifiers: Sepsis type: sepsis due to unspecified organism Sepsis acute organ dysfunction status: with acute organ dysfunction Severe sepsis acute organ dysfunction type: acute renal failure Acute renal failure type: unspecified Severe sepsis shock status: without septic shock Qualified Code(s): A41.9 - Sepsis, unspecified organism; R65.20 - Severe sepsis without septic shock; N17.9 - Acute kidney failure, unspecified Code(s): A41.9 - Sepsis, unspecified organism Status: Acute Assessment and Plan: * remains hemodynamically stable * on no pressors * abdominal fluid showed Bacteroides but not B fragilis, and Klebsiella. * multiple issues/etiologies: * recurrent abdominal abscesses as noted by imaging * peritonitis (see recent ascites fluid cultures) * Drains in place * Afebrile * White count 12.8 * on Ceftriaxone and Flagyl (3) Acute respiratory failure: Qualifiers: Respiratory failure complication: hypoxia and hypercapnia Qualified Code(s): J96.01 - Acute respiratory failure with hypoxia; J96.02 - Acute respiratory failure with hypercapnia Code(s): J96.00 - Acute respiratory failure, unspecified whether with hypoxia or hypercapnia Status: Acute Assessment and Plan: * s/p tracheostomy for prolonged ventilator weaning * complicated by weakness and severe deconditioning * on 30% oxygen. (4) Pelvic abscess in male: Code(s): K65.1 - Peritoneal abscess Status: Acute Assessment and Plan: * previous drains removed * s/p diverting colostomy * Drains placed (5) Decubitus ulcer: Code(s): L89.90 - Pressure ulcer of unspecified site, unspecified stage Status: Acute Assessment and Plan: * s/p debridement and diverting colostomy * local wound care * Surgery following (6) Anemia: Qualifiers: Anemia type: other cause Other causes of anemia: chronic disease, other Qualified Code(s): D63.8 - Anemia in other chronic diseases classified elsewhere Code(s): D64.9 - Anemia, unspecified Status: Acute Assessment and Plan: * due to operative interventions, acute illness and MOISÉS hemoglobin stable at 8.8 * getting Epogen Subjective Date/time seen: 09/14/23 09:46 Interval history: Patient is on the ventilator.
--- NOTE | 2023-09-14 09:46 | PM.PNNEP ---
Progress Note: A&P Assessment and Plan (1) MOISÉS (acute kidney injury): Code(s): N17.9 - Acute kidney failure, unspecified Status: Acute Assessment and Plan: multiple episodes noted since admission multifactorial issues present: prerenal factors relative hypotension (sometimes as low as 80s systolic) ongoing use of ARB (losartan) IV ibuprofen use contrast exposure (CT scan on 08/04/23) recurrent infection/sepsis (suspect major component) currently major issues are blood pressure and sepsis. evaluation during this hospital stay: renal ultrasound okay urine electrolytes prerenal urine eosinophils negative CPK mildly elevated (but not likely to affect kidney function) BUN and creatinine about the same today for the 1st time in a few days. Temperature is down. The patient has no swelling. His FiO2 is 30%. Continue to watch off diuretics. He may need to be dialyzed but he is very frail right now. Discussed with Dr. Whitfield. Since labs are stable and his urine output is good, plus his oxygenation is good a will hold off on dialysis for the next few days. (2) Sepsis: Qualifiers: Sepsis type: sepsis due to unspecified organism Sepsis acute organ dysfunction status: with acute organ dysfunction Severe sepsis acute organ dysfunction type: acute renal failure Acute renal failure type: unspecified Severe sepsis shock status: without septic shock Qualified Code(s): A41.9 - Sepsis, unspecified organism; R65.20 - Severe sepsis without septic shock; N17.9 - Acute kidney failure, unspecified Code(s): A41.9 - Sepsis, unspecified organism Status: Acute Assessment and Plan: remains hemodynamically stable on no pressors abdominal fluid showed Bacteroides but not B fragilis, and Klebsiella. multiple issues/etiologies: recurrent abdominal abscesses as noted by imaging peritonitis (see recent ascites fluid cultures) Drains in place Afebrile White count 12.8 on Ceftriaxone and Flagyl (3) Acute respiratory failure: Qualifiers: Respiratory failure complication: hypoxia and hypercapnia Qualified Code(s): J96.01 - Acute respiratory failure with hypoxia; J96.02 - Acute respiratory failure with hypercapnia Code(s): J96.00 - Acute respiratory failure, unspecified whether with hypoxia or hypercapnia Status: Acute Assessment and Plan: s/p tracheostomy for prolonged ventilator weaning complicated by weakness and severe deconditioning on 30% oxygen. (4) Pelvic abscess in male: Code(s): K65.1 - Peritoneal abscess Status: Acute Assessment and Plan: previous drains removed s/p diverting colostomy Drains placed (5) Decubitus ulcer: Code(s): L89.90 - Pressure ulcer of unspecified site, unspecified stage Status: Acute Assessment and Plan: s/p debridement and diverting colostomy local wound care Surgery following (6) Anemia: Qualifiers: Anemia type: other cause Other causes of anemia: chronic disease, other Qualified Code(s): D63.8 - Anemia in other chronic diseases classified elsewhere Code(s): D64.9 - Anemia, unspecified Status: Acute Assessment and Plan: due to operative interventions, acute illness and MOISÉS hemoglobin stable at 8.8 getting Epogen Subjective Date/time seen: 09/14/23 09:46 Interval history: Patient is on the ventilator. No fevers. Blood pressure is stable. Exam Narrative: General: elderly but WD/WN male in NAD Heart: IRRR, normal S1 and S2; no rub or gallop Lungs: breath sounds symmetric and mildly coarse Abdomen: Bowel sounds positive but mildly diminished. Colostomy present. Extremities: 1+ bilateral pre sacral edema Skin: no acute rash Objective Data Vital Signs Vital Signs: Vital Signs - 24 hr 09/13/23 09:57 09/13/23 12:00 09/13/23 13:57 Temper
--- NOTE | 2023-09-14 12:19 | WPDPN ---
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 Will hold off on starting tube feeds today. Hopefully can start some tube feeds tomorrow. 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 White blood cell count has been stable at 12,800 over the past 2 days. No fever. Continue present management. Continue on IV antibiotics as ordered. Hopefully his creatinine has plateaued at 4.2 to 4.3 which is been stable for the past 3 days. At this time apparently nephrology does not feel he needs dialysis. (3) Protein-calorie malnutrition, severe: Code(s): E43 - Unspecified severe protein-calorie malnutrition Status: Acute Assessment and Plan: We will keep patient on TPN today. Hopefully can start some tube feeds tomorrow and wean down TPN over the next day or 2. Subjective Date/time seen: 09/14/23 12:19 Interval history: Patient remains in the ICU on a ventilator with tracheostomy in place. No changes in his hemodynamic status. Urine output has been good and his creatinine has plateaued at 4.2 to 4.3 over the past 3 days. His white blood cell count remains stable at 12,800. He has had small amount of output through his colostomy. Exam GI: Other: The abdomen is soft and mildly distended. Midline incision is intact without any redness or drainage. Left lower quadrant colostomy was cancer liquid stool output which is nonbloody. No Stoma retraction leaking and a colostomy bag. No colostomy ischemia. Objective Data Vital Signs Vital Signs: Vital Signs - 24 hr 09/13/23 13:57 09/13/23 14:15 09/13/23 14:00 Temperature Pulse Rate 88 84 84 Respiratory Rate 26 H Blood Pressure 116/68 Pulse Oximetry 96 95 Oxygen Delivery Mechanical Ventilation Fraction of Inspired Oxygen 30 09/13/23 16:00 09/13/23 16:00 09/13/23 16:00 Temperature 37.0 C Pulse Rate 81 85 Respiratory Rate 25 H Blood Pressure 129/77 Pulse Oximetry 96 96 Oxygen Delivery Mechanical Ventilation Fraction of Inspired Oxygen 30 09/13/23 16:00 09/13/23 17:31 09/13/23 18:00 Temperature Pulse Rate 91 93 Respiratory Rate 30 H Blood Pressure 123/73 Pulse Oximetry 97 99 Oxygen Delivery Mechanical Ventilation Fraction of Inspired Oxygen 30 30 09/13/23 18:00 09/13/23 20:24 09/13/23 20:00 Temperature Pulse Rate 99 91 89 Respiratory Rate Blood Pressure Pulse Oximetry 98 Oxygen Delivery Mechanical Ventilation Fraction of Inspired Oxygen 30 09/13/23 20:00 09/13/23 20:00 09/13/23 20:00 Temperature 36.8 C Pulse Rate 89 Respiratory Rate 25 H Blood Pressure 132/90 Pulse Oximetry 97 96 Oxygen Delivery Mechanical Ventilation Fraction of Inspired Oxygen 30 30 09/13/23 22:00 09/13/23 22:00 09/13/23 23:25 Temperature 36.9 C Pulse Rate 90 90 88 Respiratory Rate 21 H Blood Pressure 132/71 Pulse Oximetry 96 98 Oxygen Delivery Mechanical Ventilation Fraction of Inspired Oxygen 30 09/14/23 00:00 09/14/23 00:00 09/14/23 01:10 Temperature 36.9 C Pulse Rate 95 95 92 Respiratory Rate 23 H Blood Pressure 140/87 Pulse Oximetry 96 97 Oxygen Delivery Mechanical Ventilation Fraction of Inspired Oxygen 30 09/14/23 00:00 09/14/23 00:00 09/14/23 02:00 Temperature Pulse Rate 88 Respiratory Rate Blood Pressure Pulse Oximetry 96 Oxygen Delivery Mechanical Ventilation Fraction of Inspired Oxygen 30 30 09/14/23 02:00 09/14/23 04:00 09/14/23 04:00 Temperature 37.1 C Pulse Rate 88 86 Respiratory Rate 25 H Blood Pressure 132/78 Pulse Oximetry 96 93 Oxygen Delivery Mechanical
--- NOTE | 2023-09-14 12:38 | PCFNICU ---
ICU Rounding Note: Pt current nutrition is TPN. Last recorded weight is 124.3 kg. Bowel Motility:Colostomy Labs Reviewed:BUN 119, GFR 13, Cr 4.3,PO4 6.0, TG 124 Meds Noted:Flagyl, Clinimix E 5/15 at 80 ml/hr with 250 ml of 20% Lipid Emulsion, Rocephin Skin: WNL at this time. Additional Notes: Patient remains on TPN at 80 ml/hr providing 1863 kcals and 96 gms protein. Per surgery note, possible tube feeding start tomorrow. Increased output from colostomy and bowel sounds. Recommend 1/2 rating TPN and starting trickle feedings of Vital AF 1.2 at 20 ml/hr when medically able. Following in ICU rounds. Will monitor weight, labs, skin, meds, TPN every Saturday and Saturday.
[2023-09-14] MEDS: AMINO ACIDS 5%/D15W/E-LYTES/CA 2,000 ML with MULTIVITAMINS-12 INJ VIAL 1 2.5 ML, MULTIV... 80 ML IV CONT (15:16)
[2023-09-14] MEDS: FAT EMULSIONS IV 20% 250 ML 20.8 ML IVPB (15:17)
--- NOTE | 2023-09-14 16:32 | PM.IMPN ---
Progress Note: A&P Assessment and Plan (1) Respiratory failure: Qualifiers: Chronicity: chronic Respiratory failure complication: hypercapnia Qualified Code(s): J96.12 - Chronic respiratory failure with hypercapnia Code(s): J96.90 - Respiratory failure, unspecified, unspecified whether with hypoxia or hypercapnia Status: Acute Assessment and Plan: Patient admitted for elective repair of a large right inguinal hernia on 08/02/23. Post-operatively, he developed ileus, peritonitis, AFib/RVR, MOISÉS and HoTN. He was moved to the ICU on 08/06 for HoTN. On the morning of 08/15, patient developed acute respiratory distress. ABG 7.37/62/58 so BiPAP ordered but repeat ABG 7.15/101/91 so patient intubated 08/15. CXR reviewed showing diffuse lung disease c/w edema vs PNA vs atelectasis Trach placed 08/30; He remained on mechanical ventilation Trach had to be replaced on 09/09 CXR today showing left base atelectasis. ENT performed tracheoscopy 09/13 showing the trachea does curve into the anterior tracheal wall but patent Appreciate customer experience intern and ENT input. Wean vent as tolerated (2) Sepsis: Qualifiers: Sepsis type: sepsis due to unspecified organism Sepsis acute organ dysfunction status: with acute organ dysfunction Severe sepsis acute organ dysfunction type: acute renal failure Acute renal failure type: unspecified Severe sepsis shock status: without septic shock Qualified Code(s): A41.9 - Sepsis, unspecified organism; R65.20 - Severe sepsis without septic shock; N17.9 - Acute kidney failure, unspecified Code(s): A41.9 - Sepsis, unspecified organism Status: Acute Assessment and Plan: Currently being treated for cholecystitis + pelvic abscesses UCx 08/05, 08/06, 08/16 negative GB Cx 08/06 growing enterococcus but unable to perform sensitivities Abscess Cx 08/06 Prevotella that is beta-lactamase positive BCx 08/06, 08/10 negative. MRSA nasal swab 08/09 negative Fungal cx 08/11 pending (?) CT A/P 08/13 showing multiple intraperitoneal abscesses similar to 08/09 with worsening mass involving the right inguinal canal and right scrotum. 08/14: Multiple Abd drains placed with culture growing H. parainfluenza and prevotella (no sensitivities but beta lactamase positive) BCx 08/[address] A/P 08/18 slight increase in fluid collection adjacent to LLQ pigtail drain measuring 3 cm, other fluid collections are either stable or slightly smaller in size, stable right groin infected hematoma, cystitis versus bladder wall thickening, Weathers catheter in place but balloon not visualized and mild fecal impaction. Tx with meropenem, linezolid. Micafungin added 08/11 he completed a course of linezolid stopped 08/19. meropenem changed to Cefepime and Flagyl. Flagyl and Cefepime stopped 08/23 Micafungin stopped 08/25 after 14 days course Zosyn started 08/23 through 08/26 WBC remaining normal and fevers resolved now All abx stopped on 08/26 -------- Fevers so re-cultured and Abx resumed 09/01 BCx 09/01, 09/07 negative Sputum Cx 09/01 negative UCx 09/01 negative; UCx 09/07 growing 10-49K ketan parapsilosis UE/LE Dopplers negative for DVT 09/07 Paracentesis 09/09 returning purulent fluid with cx growing Bacteroides, klebsiella pneumoniae. CT A/P 09/11 showing LLQ abscess 14cm and Pelvic abscess 12cm. Cx showing GNB Started on Flagyl and Rocephin 09/11 Abd and pelvic drains placed 09/11 -- 1st cx: klebsiella pneumoniae CRE -- 2nd cx: Yeast and Klebsiella pneumoniae CRE Scrotal US 09/12 showing 1cm left epididymis mass likely benign and small left hydrocele with septation. 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
[2023-09-14 17:32] LABS: Glucose Point of Care 146 mg/dl (65-105)
[2023-09-14 17:37] LABS: Glucose Point of Care 158 mg/dl (65-105)
[2023-09-15] VITALS (20 sets, daily range): BP systolic 115–143; BP diastolic 68–79; PULSE 76–104; RESP 11–30; TEMP 36.6–37.1; O2SAT 96–98
[2023-09-15 00:13] LABS: Glucose Point of Care 154 mg/dl (65-105)
[2023-09-15 05:45] LABS: Hemoglobin 8.6 g/dL (14.0-18.0); Mean Corpuscular HGB Conc 30.7 g/dl (32-36); Mean Corpuscular Hemoglobin 29.7 pg (26-34); Mean Corpuscular Volume 96.6 fl (80-100); Mean Platelet Volume 11.1 fl (7.4-10.4); Platelet Count Result 322 k/mm3 (150-375); Red Cell Distribution Width 15.5 % (11.5-14.5); White Blood Count 14.3 K/mm3 (4.5-10.0)
[2023-09-15] MEDS: LEVOTHYROXINE SODIUM INJ 100 MCG/5 ML VIAL 50 MCG IV PUSH (05:58)
[2023-09-15] MEDS: metroNIDAZOLE 500 MG/ISO 100ML 500 MG/100 ML BAG 100 MG IVPB ×3 (05:58→22:37)
[2023-09-15] MEDS: CENTRAL LINE FLUSH 10 ML IV PUSH ×3 (05:59→21:05)
[2023-09-15 06:05] LABS: Alanine Aminotransferase 43 U/L (6-50); Albumin Level 3.3 g/dL (3.5-5.1); Alkaline Phosphatase 192 U/L (38-126); Anion Gap 17 mmol/L (8-16); Aspartate Amino Transferase 45 U/L (17-59); Bilirubin,Total 0.8 mg/dL (0.2-1.3); Calcium 8.8 mg/dL (8.4-10.2); Carbon Dioxide 17 mmol/L (22-30); Chloride 106 mmol/L (98-107); Estimated CRCL calculation 17 ml/min; Estimated Glomerular Filt Rate 14; Glucose 148 mg/dL (65-110); Magnesium 2.5 mg/dL (1.6-2.3); Phosphorus 6.4 mg/dL (2.5-4.5); Potassium 4.1 mmol/L (3.4-5.0); Sodium 140 mmol/L (137-145)
[2023-09-15 06:22] LABS: Blood Urea Nitrogen 121 mg/dL (9-20)
[2023-09-15 07:29] LABS: Band Neutrophils Percent 7 % (0-6); Eosinophils Absolute Manual 0.71 K/mm3 (0.02-0.5); Eosinophils Percent Manual 5 % (0-4); Lymphocytes Absolute Manual 1.28 K/mm3 (1.1-4.5); Metamyelocytes Percent 2 %; Monocytes Absolute Manual 0.28 K/mm3 (0.1-0.90); Monocytes Percent Manual 2 % (3-9); Neutrophils Absolute Manual 11.72 K/mm3 (1.3-6.7); Neutrophils Percent Manual 75 % (46-73); Platelet Estimate Adequate (Adequate); Total Cells Counted 100
[2023-09-15 07:30] LABS: Hypochromasia 1+ (NORMAL); Schistocytes None Seen (NORMAL); Target Cells 1+ (NORMAL)
[2023-09-15] MEDS: SODIUM BICARBONATE TAB 650 MG TABLET FEED TUBE ×2 (08:11→17:26)
[2023-09-15] MEDS: MINERAL OIL/WHITE PETROLATUM OINTMENT 1 APPLIC EACH EYE ×2 (08:11→21:04)
[2023-09-15] MEDS: ASPIRIN 81 MG CHEWABLE TABLET 162 MG PO (08:11)
[2023-09-15] MEDS: COLLAGENASE OINT 30 GM TUBE 1 APPLIC TOPICAL (08:11)
[2023-09-15] MEDS: PANTOPRAZOLE SODIUM IV 40 MG VIAL IV PUSH ×2 (08:11→21:04)
[2023-09-15] MEDS: cefTRIAXone 2 GM/NS 100 ML 2 GM/100 ML BAG IVPB (08:12)
[2023-09-15] MEDS: ENOXAPARIN 30 MG/0.3 ML SYRINGE SUB-Q (08:12)
--- NOTE | 2023-09-15 09:44 | WPDINTPN ---
Progress Note: A&P Assessment and Plan (1) Acute respiratory failure: Qualifiers: Respiratory failure complication: hypoxia and hypercapnia Qualified Code(s): J96.01 - Acute respiratory failure with hypoxia; J96.02 - Acute respiratory failure with hypercapnia Code(s): J96.00 - Acute respiratory failure, unspecified whether with hypoxia or hypercapnia Status: Acute Assessment and Plan: Acute hypoxic and hypercarbic respiratory failure. Chest x-ray shows diffuse lung disease most likely which improved with diuretics. ABG chest x-ray and ventilator settings reviewed this morning 08/17 Patient placed on PSV but failed quickly due to high RSBI. PSV increased to 15/8 to get adequate RSBI. Patient tolerated that for many hours It appears the patient is severely deconditioned and weak 08/18 will re try PSV again today. Continue Bumex to manage the fluid balance 08/19 patient placed on PSV again today. Patient either had low rate on high pressure support or low tidal volume lower pressure support. I was able to get adequate RSBI on 06/30. This is better than what he has done in the past but still good enough for extubation. I will continue pressure support ventilation as tolerated through the day and try to wean down pressure support. 08/20 patient placed on PSV again and can only get adequate RSBI on 06/30. If extubated patient will need and NIPPV which because of his deconditioning and fluctuating mental status may not be good option. Will continue PSV as tolerated today Antibiotics as below Low tidal volume management -08/21, patient placed on pressure support ventilation 08/27, respiratory rate was low with decreased tidal volumes, placed on ASV mode, patient's respiratory rate remained low patient was placed back on CMV mode, will try again today -08/22: Patient tolerated PSV 10/5 for approximately 6-7 hours after which the tidal volumes were low, patient seemed to be tired and weak and was placed on CMV mode 08/23: Tolerated PSV 8/5 for approximately 3 hours, and had to be placed on CMV mode as dropped his tidal volumes and was tachypneic 08/24: Patient tolerated PSV 10/5 for few hours and had increased work of breathing and decrease tidal volumes so was placed back on CMV mode -08/25: Tolerated pressure support ventilation 10/5 all day long and was switched to ASV overnight -08/26: Tolerated PSV 10/5 for a few hours and had to be placed back on CMV mode of ventilation -08/27: Discuss with family, surgery, does not seem that the patient is going to come off the ventilator since he is not tolerating appropriate spontaneous breathing trial. Discussed with them regarding tracheostomy to which the family and the surgeon are agreeable. ENT has been consulted and tracheostomy scheduled for 08/30 Continue Bumex as needed to keep balance even 08/28 did not tolerate PSV for prolonged period of time 08/30 patient now status post tracheostomy. 08/31 patient placed on PSV but only tolerated for some time as patient kept on going into apnea ventilation and switching SIMV mode. 09/02 tolerated PSV till 7:00 p.m. with intermittent low respirator alarms 09/03 patient was trialed on PSV but patient kept on going into apnea ventilation and low tidal volume. he was switched back to CMV 09/05 patient did not tolerate PSV due to tachypnea and low tidal volumes 09/06 peep increased to 10 to minimize atelectasis 09/09 patient appears to have developed a leak in his tracheostomy cuff. NEW TRACHEOSTOMY was inserted by ENT on 09/09 09/10: Tolerated pressure support ventilation 14/8 all day, was placed on CMV mode overnight 09/11: Placed on pressure support ventilation 14/8 and tolerating for now will switch to CMV mode overnight 09/14: Patient did not tolerate pressure support ventilation as he was breathing only 8-9 times a minute, was placed on ASV mode and tolerated all day long. Placed on CMV overnight Will again place on ASV and evaluate the patient
--- NOTE | 2023-09-15 11:28 | WPDPN ---
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 Multiple pelvic drains in place. I will need to get repeat CT scan abdomen pelvis probably early next week. (2) S/P partial colectomy: Code(s): Z90.49 - Acquired absence of other specified parts of digestive tract Status: Acute Assessment and Plan: Colostomy is functioning incision is healing well. 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 No retraction colostomy. (4) Abdominal abscess: Status: Acute Assessment and Plan: Abdominal abscesses are drained. Will need repeat CT scan probably early next week. He continues on broad-spectrum multiple IV antibiotics under directed towards the cultured organisms. (5) Protein-calorie malnutrition, severe: Code(s): E43 - Unspecified severe protein-calorie malnutrition Status: Acute Assessment and Plan: Renew the TPN today. Go ahead start some trickle tube feeds at20cc an hour today. He is tolerating trickle tube feeds today then perhaps we can increase tube feeds next few days and wean office TPN. Subjective Date/time seen: 09/15/23 11:28 Interval history: Patient remains clinically stable today. No acute changes. Slight increase in his white blood cell count. No fever. Has not had a fever for 72hours. Creatinine has decreased slightly but is BN and is slightly increased. Discussed with Nephrology and still no plans for dialysis right now. Some liquid output through his ostomy. Exam GI: Other: Abdomen is soft and nondistended. Multiple percutaneous drains in place. Left lower quadrant colostomy pink and viable. Liquid stool output. Objective Data Vital Signs Vital Signs: Vital Signs - 24 hr 09/14/23 12:00 09/14/23 12:00 09/14/23 12:00 Temperature 36.8 C Pulse Rate 93 Respiratory Rate 15 Blood Pressure 130/75 Pulse Oximetry 99 99 Oxygen Delivery Mechanical Ventilation Fraction of Inspired Oxygen 35 35 09/14/23 12:00 09/14/23 14:16 09/14/23 14:00 Temperature 36.6 C Pulse Rate 90 91 96 Respiratory Rate 20 Blood Pressure 132/81 Pulse Oximetry 99 97 Oxygen Delivery Mechanical Ventilation Fraction of Inspired Oxygen 35 09/14/23 14:00 09/14/23 16:00 09/14/23 16:00 Temperature Pulse Rate 98 80 Respiratory Rate Blood Pressure Pulse Oximetry Oxygen Delivery Fraction of Inspired Oxygen 35 09/14/23 16:00 09/14/23 16:00 09/14/23 18:12 Temperature 36.6 C Pulse Rate 75 80 Respiratory Rate 23 H Blood Pressure 136/92 H Pulse Oximetry 97 97 97 Oxygen Delivery Mechanical Ventilation Mechanical Ventilation Fraction of Inspired Oxygen 35 35 09/14/23 18:00 09/14/23 18:00 09/14/23 20:11 Temperature 36.8 C Pulse Rate 87 87 87 Respiratory Rate 21 H Blood Pressure 145/74 H Pulse Oximetry 98 98 Oxygen Delivery Mechanical Ventilation Fraction of Inspired Oxygen 35 09/14/23 20:00 09/14/23 20:00 09/14/23 20:00 Temperature 36.8 C Pulse Rate 88 88 Respiratory Rate 27 H Blood Pressure 134/73 Pulse Oximetry 98 98 Oxygen Delivery Mechanical Ventilation Fraction of Inspired Oxygen 30 09/14/23 20:00 09/14/23 22:00 09/14/23 22:00 Temperature 36.9 C Pulse Rate 91 91 Respiratory Rate 23 H Blood Pressure 129/86 Pulse Oximetry 97 Oxygen Delivery Fraction of Inspired Oxygen 30 09/15/23 00:00 09/15/23 00:00 09/15/23 00:00 Temperature 36.6 C Pulse Rate 93 93 Respiratory Rate 22 H Blood Pressure 135/77 Pulse Oximetry 96 Oxygen Delivery Fraction of Inspired Oxygen 30 09/15/23 00:00 09/15/23 02:00 09/15/23 02:00 Temperature Pulse Rate 92 92 Respiratory Rate 22 H Blood Pressure 130/79 Pulse
--- NOTE | 2023-09-15 11:54 | P.PNNP_ITS ---
Progress Note: A&P Assessment and Plan (1) MOISÉS (acute kidney injury): Code(s): N17.9 - Acute kidney failure, unspecified Status: Acute Assessment and Plan: * multiple episodes noted since admission * multifactorial issues present: * prerenal factors * relative hypotension (sometimes as low as 80s systolic) * ongoing use of ARB (losartan) * IV ibuprofen use * contrast exposure (CT scan on 08/04/23) * recurrent infection/sepsis (suspect major component) * currently major issues are blood pressure and sepsis. * evaluation during this hospital stay: * renal ultrasound okay * urine electrolytes prerenal * urine eosinophils negative * CPK mildly elevated (but not likely to affect kidney function) * no fevers. * White count still relatively low. * Oxygenation is stable. * Urine output is good. * BUN up a tiny bit probably from metabolic state. * Creatinine improved. * Continue to observe off dialysis. (2) Sepsis: Qualifiers: Acute renal failure type: unspecified Sepsis acute organ dysfunction status: with acute organ dysfunction Sepsis type: sepsis due to unspecified organism Severe sepsis acute organ dysfunction type: acute renal failure Severe sepsis shock status: without septic shock Qualified Code(s): A41.9 - Sepsis, unspecified organism; R65.20 - Severe sepsis without septic shock; N17.9 - Acute kidney failure, unspecified Code(s): A41.9 - Sepsis, unspecified organism Status: Acute Assessment and Plan: * remains hemodynamically stable * on no pressors * abdominal fluid showed Bacteroides but not B fragilis, and Klebsiella. * multiple issues/etiologies: * recurrent abdominal abscesses as noted by imaging * peritonitis (see recent ascites fluid cultures) * Drains in place * Afebrile * White count 14.3 * on Ceftriaxone and Flagyl * Discussed with Dr. Baca and (3) Acute respiratory failure: Qualifiers: Respiratory failure complication: hypoxia and hypercapnia Qualified Code(s): J96.01 - Acute respiratory failure with hypoxia; J96.02 - Acute respiratory failure with hypercapnia Code(s): J96.00 - Acute respiratory failure, unspecified whether with hypoxia or hypercapnia Status: Acute Assessment and Plan: * s/p tracheostomy for prolonged ventilator weaning * complicated by weakness and severe deconditioning * on 30% oxygen. (4) Pelvic abscess in male: Code(s): K65.1 - Peritoneal abscess Status: Acute Assessment and Plan: * previous drains removed * s/p diverting colostomy * Drains placed (5) Decubitus ulcer: Code(s): L89.90 - Pressure ulcer of unspecified site, unspecified stage Status: Acute Assessment and Plan: * s/p debridement and diverting colostomy * local wound care * Surgery following (6) Anemia: Qualifiers: Anemia type: other cause Other causes of anemia: chronic disease, other Qualified Code(s): D63.8 - Anemia in other chronic diseases classified elsewhere Code(s): D64.9 - Anemia, unspecified Status: Acute Assessment and Plan: * due to operative interventions, acute illness and MOISÉS hemoglobin stable in the mid to high 8s. * getting Epogen Subjective Date/time seen: 09/15/23 11:54 Interval history: Patient is on the ventilator. Daughter and are in the room. we discussed the case. Exam Narrative:
--- NOTE | 2023-09-15 11:54 | PM.PNNEP ---
Progress Note: A&P Assessment and Plan (1) MOISÉS (acute kidney injury): Code(s): N17.9 - Acute kidney failure, unspecified Status: Acute Assessment and Plan: multiple episodes noted since admission multifactorial issues present: prerenal factors relative hypotension (sometimes as low as 80s systolic) ongoing use of ARB (losartan) IV ibuprofen use contrast exposure (CT scan on 08/04/23) recurrent infection/sepsis (suspect major component) currently major issues are blood pressure and sepsis. evaluation during this hospital stay: renal ultrasound okay urine electrolytes prerenal urine eosinophils negative CPK mildly elevated (but not likely to affect kidney function) no fevers. White count still relatively low. Oxygenation is stable. Urine output is good. BUN up a tiny bit probably from metabolic state. Creatinine improved. Continue to observe off dialysis. (2) Sepsis: Qualifiers: Acute renal failure type: unspecified Sepsis acute organ dysfunction status: with acute organ dysfunction Sepsis type: sepsis due to unspecified organism Severe sepsis acute organ dysfunction type: acute renal failure Severe sepsis shock status: without septic shock Qualified Code(s): A41.9 - Sepsis, unspecified organism; R65.20 - Severe sepsis without septic shock; N17.9 - Acute kidney failure, unspecified Code(s): A41.9 - Sepsis, unspecified organism Status: Acute Assessment and Plan: remains hemodynamically stable on no pressors abdominal fluid showed Bacteroides but not B fragilis, and Klebsiella. multiple issues/etiologies: recurrent abdominal abscesses as noted by imaging peritonitis (see recent ascites fluid cultures) Drains in place Afebrile White count 14.3 on Ceftriaxone and Flagyl Discussed with Dr. Baca and (3) Acute respiratory failure: Qualifiers: Respiratory failure complication: hypoxia and hypercapnia Qualified Code(s): J96.01 - Acute respiratory failure with hypoxia; J96.02 - Acute respiratory failure with hypercapnia Code(s): J96.00 - Acute respiratory failure, unspecified whether with hypoxia or hypercapnia Status: Acute Assessment and Plan: s/p tracheostomy for prolonged ventilator weaning complicated by weakness and severe deconditioning on 30% oxygen. (4) Pelvic abscess in male: Code(s): K65.1 - Peritoneal abscess Status: Acute Assessment and Plan: previous drains removed s/p diverting colostomy Drains placed (5) Decubitus ulcer: Code(s): L89.90 - Pressure ulcer of unspecified site, unspecified stage Status: Acute Assessment and Plan: s/p debridement and diverting colostomy local wound care Surgery following (6) Anemia: Qualifiers: Anemia type: other cause Other causes of anemia: chronic disease, other Qualified Code(s): D63.8 - Anemia in other chronic diseases classified elsewhere Code(s): D64.9 - Anemia, unspecified Status: Acute Assessment and Plan: due to operative interventions, acute illness and MOISÉS hemoglobin stable in the mid to high 8s. getting Epogen Subjective Date/time seen: 09/15/23 11:54 Interval history: Patient is on the ventilator. Daughter and are in the room. we discussed the case. Exam Narrative: General: elderly but WD/WN male in NAD Heart: IRRR, normal S1 and S2; no rub Lungs: breath sounds symmetric and mildly coarse Abdomen: Bowel sounds positive but mildly diminished. Colostomy present. Extremities: trace bilateral pre sacral edema Skin: no acute rash Or subcu nodules Objective Data Vital Signs Vital Signs: Vital Signs - 24 hr 09/14/23 12:00 09/14/23 12:00 09/14/23 12:00 Temperature 98.3 F Pulse Rate 93 Respiratory Rate 15 Blood Pressure 130/75 Pulse Oximetry
[2023-09-15 12:22] LABS: Glucose Point of Care 152 mg/dl (65-105)
[2023-09-15] MEDS: FAT EMULSIONS IV 20% 250 ML 20.8 ML IVPB (15:11)
[2023-09-15] MEDS: AMINO ACIDS 5%/D15W/E-LYTES/CA 2,000 ML with MULTIVITAMINS-12 INJ VIAL 1 2.5 ML, MULTIV... 80 ML IV CONT (15:12)
--- NOTE | 2023-09-15 17:08 | PM.IMPN ---
Progress Note: A&P Assessment and Plan (1) Respiratory failure: Qualifiers: Chronicity: chronic Respiratory failure complication: hypercapnia Qualified Code(s): J96.12 - Chronic respiratory failure with hypercapnia Code(s): J96.90 - Respiratory failure, unspecified, unspecified whether with hypoxia or hypercapnia Status: Acute Assessment and Plan: Patient admitted for elective repair of a large right inguinal hernia on 08/02/23. Post-operatively, he developed ileus, peritonitis, AFib/RVR, MOISÉS and HoTN. He was moved to the ICU on 08/06 for HoTN. On the morning of 08/15, patient developed acute respiratory distress. ABG 7.37/62/58 so BiPAP ordered but repeat ABG 7.15/101/91 so patient intubated 08/15. CXR reviewed showing diffuse lung disease c/w edema vs PNA vs atelectasis Trach placed 08/30; He remained on mechanical ventilation Trach had to be replaced on 09/09 CXR today showing left base atelectasis. ENT performed tracheoscopy 09/13 showing the trachea does curve into the anterior tracheal wall but patent Appreciate movable bulkhead installer and ENT input. Wean vent as tolerated (2) Sepsis: Qualifiers: Sepsis type: sepsis due to unspecified organism Sepsis acute organ dysfunction status: with acute organ dysfunction Severe sepsis acute organ dysfunction type: acute renal failure Acute renal failure type: unspecified Severe sepsis shock status: without septic shock Qualified Code(s): A41.9 - Sepsis, unspecified organism; R65.20 - Severe sepsis without septic shock; N17.9 - Acute kidney failure, unspecified Code(s): A41.9 - Sepsis, unspecified organism Status: Acute Assessment and Plan: Currently being treated for cholecystitis + pelvic abscesses UCx 08/05, 08/06, 08/16 negative GB Cx 08/06 growing enterococcus but unable to perform sensitivities; treated with a course of linezolid stopped 08/19. Abscess Cx 08/06 Prevotella that is beta-lactamase positive BCx 08/06, 08/10 and 08/16 negative. MRSA nasal swab 08/[address] A/P 08/13 showing multiple intraperitoneal abscesses similar to 08/09 with worsening mass involving the right inguinal canal and right scrotum. 08/14: Multiple Abd drains placed with culture growing H. parainfluenza and prevotella (no sensitivities but beta lactamase positive) CT A/P 08/18 slight increase in fluid collection adjacent to LLQ pigtail drain measuring 3 cm, other fluid collections are either stable or slightly smaller in size, stable right groin infected hematoma, cystitis versus bladder wall thickening, Weathers catheter in place but balloon not visualized and mild fecal impaction. Tx with meropenem, linezolid. Micafungin added 08/11 he completed a course of linezolid stopped 08/19. meropenem changed to Cefepime and Flagyl. Flagyl and Cefepime stopped 08/23 Micafungin stopped 08/25 after 14 days course Zosyn started 08/23 through 08/26 WBC remaining normal, fevers resolved so All abx stopped on 08/26 -------- Recurrent fevers so re-cultured and Abx resumed 09/01 BCx 09/01, 09/07 negative Sputum Cx 09/01 negative UCx 09/01 negative; UCx 09/07 growing 10-49K ketan parapsilosis UE/LE Dopplers negative for DVT 09/07 Paracentesis 09/09 returning purulent fluid with cx growing Bacteroides, klebsiella pneumoniae. CT A/P 09/11 showing LLQ abscess 14cm and Pelvic abscess 12cm. Abd and pelvic drains placed 09/11: -- 1st cx: klebsiella pneumoniae CRE -- 2nd cx: Yeast and Klebsiella pneumoniae CRE Started on Flagyl and Rocephin 09/11 but changed to Avycaz on 09/15 Scrotal US 09/12 showing 1cm left epididymis mass likely benign and small left hydrocele with septation. 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
[2023-09-15 17:37] LABS: Glucose Point of Care 148 mg/dl (65-105)
[2023-09-15] MEDS: HYDROmorphone HCL INJ (*CRX) 1 MG/ML SYR 0.5 MG IV PUSH (19:47)
[2023-09-16] VITALS (20 sets, daily range): BP systolic 108–141; BP diastolic 66–81; PULSE 80–113; RESP 18–28; TEMP 36.7–37.3; O2SAT 93–98
[2023-09-16 01:25] LABS: Glucose Point of Care 156 mg/dl (65-105)
[2023-09-16] MEDS: metroNIDAZOLE 500 MG/ISO 100ML 500 MG/100 ML BAG 100 MG IVPB ×3 (05:59→21:28)
[2023-09-16] MEDS: CENTRAL LINE FLUSH 10 ML IV PUSH ×3 (06:00→20:02)
[2023-09-16] MEDS: LEVOTHYROXINE SODIUM INJ 100 MCG/5 ML VIAL 50 MCG IV PUSH (06:00)
[2023-09-16 06:38] LABS: Hematocrit 28.7 % (42.0-52.0); Mean Corpuscular HGB Conc 31.4 g/dl (32-36); Mean Corpuscular Hemoglobin 30.3 pg (26-34); Mean Corpuscular Volume 96.6 fl (80-100); Mean Platelet Volume 11.2 fl (7.4-10.4); Platelet Count Result 353 k/mm3 (150-375); Red Blood Count 2.97 M/mm3 (4.6-6.20); Red Cell Distribution Width 15.6 % (11.5-14.5)
[2023-09-16 07:06] LABS: Alanine Aminotransferase 42 U/L (6-50); Albumin Level 3.4 g/dL (3.5-5.1); Alkaline Phosphatase 208 U/L (38-126); Anion Gap 15 mmol/L (8-16); Aspartate Amino Transferase 45 U/L (17-59); Bilirubin,Total 0.7 mg/dL (0.2-1.3); Blood Urea Nitrogen > 120 mg/dL (9-20); Calcium 8.9 mg/dL (8.4-10.2); Carbon Dioxide 17 mmol/L (22-30); Chloride 109 mmol/L (98-107); Estimated CRCL calculation 18 ml/min; Estimated Glomerular Filt Rate 15; Glucose 155 mg/dL (65-110); Magnesium 2.6 mg/dL (1.6-2.3); Phosphorus 6.6 mg/dL (2.5-4.5); Potassium 4.4 mmol/L (3.4-5.0); Sodium 141 mmol/L (137-145); Triglycerides 123 mg/dL (<150)
--- NOTE | 2023-09-16 07:49 | P.PNNP_ITS ---
Progress Note: A&P Assessment and Plan (1) MOISÉS (acute kidney injury): Code(s): N17.9 - Acute kidney failure, unspecified Status: Acute Assessment and Plan: * multiple episodes noted since admission * multifactorial issues present: * prerenal factors * relative hypotension (sometimes as low as 80s systolic) * ongoing use of ARB (losartan) * IV ibuprofen use * contrast exposure (CT scan on 08/04/23) * recurrent infection/sepsis (suspect major component) * currently major issues are blood pressure and sepsis. * evaluation during this hospital stay: * renal ultrasound okay * urine electrolytes prerenal * urine eosinophils negative * CPK mildly elevated (but not likely to affect kidney function) * patient is afebrile. White count still low. He is hemodynamically stable. * Oxygenation is stable With an FiO2 of 30%. * Urine output is good. * BUN is indeterminate but the creatinine came down. * Continue to observe off dialysis. (2) Sepsis: Qualifiers: Sepsis type: sepsis due to unspecified organism Sepsis acute organ dysfunction status: with acute organ dysfunction Severe sepsis acute organ dysfunction type: acute renal failure Acute renal failure type: unspecified Severe sepsis shock status: without septic shock Qualified Code(s): A41.9 - Sepsis, unspecified organism; R65.20 - Severe sepsis without septic shock; N17.9 - Acute kidney failure, unspecified Code(s): A41.9 - Sepsis, unspecified organism Status: Acute Assessment and Plan: * remains hemodynamically stable * on no pressors * abdominal fluid showed Bacteroides but not B fragilis, and Klebsiella. * multiple issues/etiologies: * recurrent abdominal abscesses as noted by imaging * peritonitis (see recent ascites fluid cultures) * Drains in place * Afebrile * White count 14.3 * on Ceftriaxone and Flagyl (3) Acute respiratory failure: Qualifiers: Respiratory failure complication: hypoxia and hypercapnia Qualified Code(s): J96.01 - Acute respiratory failure with hypoxia; J96.02 - Acute respiratory failure with hypercapnia Code(s): J96.00 - Acute respiratory failure, unspecified whether with hypoxia or hypercapnia Status: Acute Assessment and Plan: * s/p tracheostomy for prolonged ventilator weaning * complicated by weakness and severe deconditioning * on 30% oxygen. (4) Pelvic abscess in male: Code(s): K65.1 - Peritoneal abscess Status: Acute Assessment and Plan: * previous drains removed * s/p diverting colostomy * Drains placed * Surgery following closely (5) Decubitus ulcer: Code(s): L89.90 - Pressure ulcer of unspecified site, unspecified stage Status: Acute Assessment and Plan: * s/p debridement and diverting colostomy * local wound care * Surgery following (6) Anemia: Qualifiers: Anemia type: other cause Other causes of anemia: chronic disease, other Qualified Code(s): D63.8 - Anemia in other chronic diseases classified elsewhere Code(s): D64.9 - Anemia, unspecified Status: Acute Assessment and Plan: * due to operative interventions, acute illness and MOISÉS hemoglobin is up to 9.0. * getting Epogen Subjective Date/time seen: 09/16/23 07:49 Interval history: Patient is comfortable in bed. On the ventilator. Exam Narrative: General: elderly but WD/WN male in NAD Heart: I
--- NOTE | 2023-09-16 07:49 | PM.PNNEP ---
Progress Note: A&P Assessment and Plan (1) MOISÉS (acute kidney injury): Code(s): N17.9 - Acute kidney failure, unspecified Status: Acute Assessment and Plan: multiple episodes noted since admission multifactorial issues present: prerenal factors relative hypotension (sometimes as low as 80s systolic) ongoing use of ARB (losartan) IV ibuprofen use contrast exposure (CT scan on 08/04/23) recurrent infection/sepsis (suspect major component) currently major issues are blood pressure and sepsis. evaluation during this hospital stay: renal ultrasound okay urine electrolytes prerenal urine eosinophils negative CPK mildly elevated (but not likely to affect kidney function) patient is afebrile. White count still low. He is hemodynamically stable. Oxygenation is stable With an FiO2 of 30%. Urine output is good. BUN is indeterminate but the creatinine came down. Continue to observe off dialysis. (2) Sepsis: Qualifiers: Sepsis type: sepsis due to unspecified organism Sepsis acute organ dysfunction status: with acute organ dysfunction Severe sepsis acute organ dysfunction type: acute renal failure Acute renal failure type: unspecified Severe sepsis shock status: without septic shock Qualified Code(s): A41.9 - Sepsis, unspecified organism; R65.20 - Severe sepsis without septic shock; N17.9 - Acute kidney failure, unspecified Code(s): A41.9 - Sepsis, unspecified organism Status: Acute Assessment and Plan: remains hemodynamically stable on no pressors abdominal fluid showed Bacteroides but not B fragilis, and Klebsiella. multiple issues/etiologies: recurrent abdominal abscesses as noted by imaging peritonitis (see recent ascites fluid cultures) Drains in place Afebrile White count 14.3 on Ceftriaxone and Flagyl (3) Acute respiratory failure: Qualifiers: Respiratory failure complication: hypoxia and hypercapnia Qualified Code(s): J96.01 - Acute respiratory failure with hypoxia; J96.02 - Acute respiratory failure with hypercapnia Code(s): J96.00 - Acute respiratory failure, unspecified whether with hypoxia or hypercapnia Status: Acute Assessment and Plan: s/p tracheostomy for prolonged ventilator weaning complicated by weakness and severe deconditioning on 30% oxygen. (4) Pelvic abscess in male: Code(s): K65.1 - Peritoneal abscess Status: Acute Assessment and Plan: previous drains removed s/p diverting colostomy Drains placed Surgery following closely (5) Decubitus ulcer: Code(s): L89.90 - Pressure ulcer of unspecified site, unspecified stage Status: Acute Assessment and Plan: s/p debridement and diverting colostomy local wound care Surgery following (6) Anemia: Qualifiers: Anemia type: other cause Other causes of anemia: chronic disease, other Qualified Code(s): D63.8 - Anemia in other chronic diseases classified elsewhere Code(s): D64.9 - Anemia, unspecified Status: Acute Assessment and Plan: due to operative interventions, acute illness and MOISÉS hemoglobin is up to 9.0. getting Epogen Subjective Date/time seen: 09/16/23 07:49 Interval history: Patient is comfortable in bed. On the ventilator. Exam Narrative: General: elderly but WD/WN male in NAD Heart: IRRR, normal S1 and S2; no rub or gallop Lungs: breath sounds symmetric and mildly coarse with upper airway noise from the ventilator Abdomen: Bowel sounds positive but mildly diminished. Colostomy present. Extremities: 1+ bilateral pre sacral edema Skin: no acute rash Objective Data Vital Signs Vital Signs: Vital Signs - 24 hr 09/15/23 08:47 09/15/23 08:00 09/15/23 08:00 Temperature Pulse Rate 93 104 H Respiratory Rate Blood Pressure Pulse Oximetry 96 Oxygen Delivery Me
[2023-09-16 08:36] LABS: Band Neutrophils Percent 7 % (0-6); Eosinophils Absolute Manual 0.64 K/mm3 (0.02-0.5); Eosinophils Percent Manual 4 % (0-4); Metamyelocytes Percent 2 %; Neutrophils Absolute Manual 12.64 K/mm3 (1.3-6.7); Neutrophils Percent Manual 72 % (46-73); Platelet Estimate Adequate (Adequate); Total Cells Counted 100
[2023-09-16 08:37] LABS: Anisocytosis 1+ (NORMAL); Hypochromasia 1+ (NORMAL); Microcytosis 1+ (NORMAL); Schistocytes None Seen (NORMAL)
[2023-09-16] MEDS: SODIUM BICARBONATE TAB 650 MG TABLET FEED TUBE ×2 (08:49→17:44)
[2023-09-16] MEDS: MINERAL OIL/WHITE PETROLATUM OINTMENT 1 APPLIC EACH EYE ×2 (08:49→20:02)
[2023-09-16] MEDS: ENOXAPARIN 30 MG/0.3 ML SYRINGE SUB-Q (08:49)
[2023-09-16] MEDS: PANTOPRAZOLE SODIUM IV 40 MG VIAL IV PUSH ×2 (08:49→20:02)
[2023-09-16] MEDS: ASPIRIN 81 MG CHEWABLE TABLET 162 MG PO (08:49)
--- NOTE | 2023-09-16 12:01 | WPDPN ---
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 Colostomy is viable. No retraction. (2) S/P partial colectomy: Code(s): Z90.49 - Acquired absence of other specified parts of digestive tract Status: Acute Assessment and Plan: Status post partial sigmoid colectomy and end-colostomy. Midline incision is healing well. [place] in place. No wound infection (3) Protein-calorie malnutrition, severe: Code(s): E43 - Unspecified severe protein-calorie malnutrition Status: Acute Assessment and Plan: Continue on TPN for now. Renewed for today. Trickle tube feeds have been started which she has tolerated a 20cc/hour. Will increase to30cc/hour. Will have dietitian calculated goal rate for tube feeds tomorrow and hopefully can increase to his goal rate and wean off his TPN. His albumin did slightly increased from 3.3 to 3.4. (4) Pelvic abscess in male: Code(s): K65.1 - Peritoneal abscess Status: Acute Assessment and Plan: Pelvic drains in place. Output is not purulent. Dr. Armijo will return tomorrow. Will defer decision to getting a repeat CT scan of his abdomen pelvis to have it after sees the patient again tomorrow. No need to have any emergently or urgently today. Subjective Date/time seen: 09/16/23 12:01 Interval history: Patient's clinical status very stable. Tube feeds at trickle rate 20cc/hours started yesterday he has tolerated that well. Vent settings have decreased. Creatinine has decreased from 4.1 to 3.9. Urine output has been improving. White blood cell count slight elevation 16,000 today. No fevers. Colostomy continues to have some liquid output. Remains on TPN. Exam GI: Other: Abdomen is mildly distended. Ostomy viable without retraction. Liquid stool output. Midline incision is healing without redness or drainage. Pelvic drains without purulence but the wrist high output of succus drainage. Objective Data Vital Signs Vital Signs: Vital Signs - 24 hr 09/15/23 14:14 09/15/23 14:00 09/15/23 14:00 Temperature Pulse Rate 90 83 96 Respiratory Rate 16 Blood Pressure 135/72 Pulse Oximetry 96 96 Oxygen Delivery Mechanical Ventilation Fraction of Inspired Oxygen 30 09/15/23 16:28 09/15/23 16:00 09/15/23 16:00 Temperature Pulse Rate 92 92 Respiratory Rate Blood Pressure Pulse Oximetry 96 Oxygen Delivery Mechanical Ventilation Fraction of Inspired Oxygen 30 30 09/15/23 16:00 09/15/23 16:00 09/15/23 18:00 Temperature 36.9 C Pulse Rate 92 92 92 Respiratory Rate 17 17 Blood Pressure 133/76 Pulse Oximetry 97 96 Oxygen Delivery Mechanical Ventilation Fraction of Inspired Oxygen 30 09/15/23 18:00 09/15/23 19:56 09/15/23 20:00 Temperature Pulse Rate 92 101 H 102 H Respiratory Rate 21 H Blood Pressure 143/78 H Pulse Oximetry 96 96 Oxygen Delivery Mechanical Ventilation Fraction of Inspired Oxygen 30 09/15/23 20:00 09/15/23 20:00 09/15/23 20:00 Temperature 37.1 C Pulse Rate 101 H 102 H Respiratory Rate 21 H 23 H Blood Pressure 119/69 Pulse Oximetry 96 96 Oxygen Delivery Mechanical Ventilation Fraction of Inspired Oxygen 30 30 09/15/23 22:00 09/15/23 22:00 09/15/23 22:32 Temperature Pulse Rate 85 93 76 Respiratory Rate 24 H Blood Pressure 116/68 Pulse Oximetry 96 96 Oxygen Delivery Mechanical Ventilation Fraction of Inspired Oxygen 30 09/16/23 00:00 09/16/23 00:00 09/16/23 00:00 Temperature Pulse Rate 87 80 Respiratory Rate 24 H Blood Pressure Pulse Oximetry 96 Oxygen Delivery Mechanical Ventilation Fraction of Inspired Oxygen 30 30 09/16/23 00:00 09/16/23 02:00 09/16/23 02:00 Temperature 36.7 C Pulse Rate 87 80 94 Respiratory Rate 24 H 23 H Blood Pressure 122/75 112/66 Pulse O
[2023-09-16] MEDS: COLLAGENASE OINT 30 GM TUBE 1 APPLIC TOPICAL (12:35)
[2023-09-16 12:37] LABS: Glucose Point of Care 171 mg/dl (65-105)
[2023-09-16] MEDS: AMINO ACIDS 5%/D15W/E-LYTES/CA 2,000 ML with MULTIVITAMINS-12 INJ VIAL 1 2.5 ML, MULTIV... 80 ML IV CONT (14:29)
[2023-09-16] MEDS: FAT EMULSIONS IV 20% 250 ML 20.8 ML IVPB (14:29)
[2023-09-16 17:45] LABS: Glucose Point of Care 160 mg/dl (65-105)
[2023-09-16] MEDS: HYDROmorphone HCL INJ (*CRX) 1 MG/ML SYR 0.5 MG IV PUSH (23:27)
[2023-09-16 23:32] LABS: Glucose Point of Care 158 mg/dl (65-105)
[2023-09-17] VITALS (21 sets, daily range): BP systolic 111–156; BP diastolic 54–94; PULSE 80–108; RESP 18–30; TEMP 36.7–37.2; O2SAT 96–98
[2023-09-17 05:05] LABS: Hematocrit 29.3 % (42.0-52.0); Hemoglobin 8.7 g/dL (14.0-18.0); Mean Corpuscular HGB Conc 29.7 g/dl (32-36); Mean Corpuscular Hemoglobin 29.6 pg (26-34); Mean Corpuscular Volume 99.7 fl (80-100); Mean Platelet Volume 11.1 fl (7.4-10.4); Platelet Count Result 363 k/mm3 (150-375); Red Blood Count 2.94 M/mm3 (4.6-6.20); Red Cell Distribution Width 15.8 % (11.5-14.5); White Blood Count 15.6 K/mm3 (4.5-10.0)
[2023-09-17 05:15] LABS: Alanine Aminotransferase 39 U/L (6-50); Albumin Level 3.3 g/dL (3.5-5.1); Alkaline Phosphatase 190 U/L (38-126); Anion Gap 14 mmol/L (8-16); Aspartate Amino Transferase 45 U/L (17-59); Bilirubin,Total 0.7 mg/dL (0.2-1.3); Blood Urea Nitrogen 119 mg/dL (9-20); Calcium 8.8 mg/dL (8.4-10.2); Carbon Dioxide 16 mmol/L (22-30); Chloride 111 mmol/L (98-107); Estimated CRCL calculation 19 ml/min; Estimated Glomerular Filt Rate 16; Glucose 157 mg/dL (65-110); Magnesium 2.7 mg/dL (1.6-2.3); Phosphorus 6.9 mg/dL (2.5-4.5); Potassium 4.6 mmol/L (3.4-5.0); Sodium 141 mmol/L (137-145)
[2023-09-17] MEDS: CENTRAL LINE FLUSH 10 ML IV PUSH ×3 (05:26→21:12)
[2023-09-17] MEDS: metroNIDAZOLE 500 MG/ISO 100ML 500 MG/100 ML BAG 100 MG IVPB ×3 (05:39→21:08)
[2023-09-17] MEDS: LEVOTHYROXINE SODIUM INJ 100 MCG/5 ML VIAL 50 MCG IV PUSH (05:39)
[2023-09-17 05:41] LABS: Anisocytosis 1+ (NORMAL); Band Neutrophils Percent 16 % (0-6); Eosinophils Absolute Manual 0.78 K/mm3 (0.02-0.5); Eosinophils Percent Manual 5 % (0-4); Hypochromasia 1+ (NORMAL); Lymphocytes Absolute Manual 0.46 K/mm3 (1.1-4.5); Metamyelocytes Percent 1 %; Monocytes Absolute Manual 0.15 K/mm3 (0.1-0.90); Monocytes Percent Manual 1 % (3-9); Neutrophils Absolute Manual 14.04 K/mm3 (1.3-6.7); Neutrophils Percent Manual 74 % (46-73); Platelet Estimate Adequate (Adequate); Schistocytes None Seen (NORMAL); Total Cells Counted 100
[2023-09-17 06:00] LABS: Alveolar/Arterial O2 Gradient 39.8 mmHg; Base Excess ABG -6.7 mEq/l (+/-2.0); Carboxyhemoglobin 0.1 % THb (0-2.0); Fractional Inspired Oxygen 30 %; HCO3 ABG 18.6 mEq/l (22.0-26.0); Methemoglobin ABG 0.3 %THb (0-1.5); Oxygen Content ABG 20.6 %vol (16.0-22.0); Oxygen Saturation ABG 98.4 % (95.0-100.0); Oxyhemoglobin 97.6 % THb (90.0-100.0); PCO2 ABG 36.7 mmHg (35.0-45.0); PO2 FiO2 Ratio Arterial Blood 4.37 %; Total Hemoglobin 14.9 g/dL (12.0-18.0); pH ABG 7.323 (7.350-7.450)
[2023-09-17 06:01] LABS: Device VENTILATOR; Modified Allen's Test Pass; Site Drawn RIGHT RADIAL
[2023-09-17 06:02] LABS: Arterial Blood Gas PEEP 5 cmH2O; Arterial Blood Gas Vent Mode SPONTANEOUS
[2023-09-17 06:03] LABS: Arterial Blood Gas Pressure Support 8 cmH2O
--- NOTE | 2023-09-17 09:02 | P.PNNP_ITS ---
Progress Note: A&P Assessment and Plan (1) MOISÉS (acute kidney injury): Code(s): N17.9 - Acute kidney failure, unspecified Status: Acute Assessment and Plan: * multiple episodes noted since admission * multifactorial issues present: * prerenal factors * relative hypotension (sometimes as low as 80s systolic) * ongoing use of ARB (losartan) * IV ibuprofen use * contrast exposure (CT scan on 08/04/23) * recurrent infection/sepsis (suspect major component) * currently major issues are blood pressure and sepsis. * evaluation during this hospital stay: * renal ultrasound okay * urine electrolytes prerenal * urine eosinophils negative * CPK mildly elevated (but not likely to affect kidney function) * patient is afebrile. White count still low. He is hemodynamically stable. * Oxygenation is stable With an FiO2 of 30% again today * Urine output is good. 3045 in the last 24 hours * BUN is 93 today and the creatinine came down a bit as well. * Continue to observe off dialysis. * Discussed with Dr Whitfield (2) Sepsis: Qualifiers: Sepsis type: sepsis due to unspecified organism Sepsis acute organ dysfunction status: with acute organ dysfunction Severe sepsis acute organ dysfunction type: acute renal failure Acute renal failure type: unspecified Severe sepsis shock status: without septic shock Qualified Code(s): A41.9 - Sepsis, unspecified organism; R65.20 - Severe sepsis without septic shock; N17.9 - Acute kidney failure, unspecified Code(s): A41.9 - Sepsis, unspecified organism Status: Acute Assessment and Plan: * remains hemodynamically stable * on no pressors * abdominal fluid showed Bacteroides but not B fragilis, and Klebsiella. * multiple issues/etiologies: * recurrent abdominal abscesses as noted by imaging * peritonitis (see recent ascites fluid cultures) * Drains in place * Afebrile * White count 15.6 * on Ceftriaxone and Flagyl (3) Acute respiratory failure: Qualifiers: Respiratory failure complication: hypoxia and hypercapnia Qualified Code(s): J96.01 - Acute respiratory failure with hypoxia; J96.02 - Acute respiratory failure with hypercapnia Code(s): J96.00 - Acute respiratory failure, unspecified whether with hypoxia or hypercapnia Status: Acute Assessment and Plan: * s/p tracheostomy for prolonged ventilator weaning * complicated by weakness and severe deconditioning * on 30% oxygen. (4) Pelvic abscess in male: Code(s): K65.1 - Peritoneal abscess Status: Acute Assessment and Plan: * previous drains removed * s/p diverting colostomy * Drains placed * Surgery following closely (5) Decubitus ulcer: Code(s): L89.90 - Pressure ulcer of unspecified site, unspecified stage Status: Acute Assessment and Plan: * s/p debridement and diverting colostomy * local wound care * Surgery following (6) Anemia: Qualifiers: Anemia type: other cause Other causes of anemia: chronic disease, other Qualified Code(s): D63.8 - Anemia in other chronic diseases classified elsewhere Code(s): D64.9 - Anemia, unspecified Status: Acute Assessment and Plan: * due to operative interventions, acute illness and MOISÉS hemoglobin is bouncing around 9. * getting Epogen Subjective Date/time seen: 09/17/23 09:02 Interval history: Omar is on the ventilator. Not much response. Still making lots of urine.
--- NOTE | 2023-09-17 09:02 | PM.PNNEP ---
Progress Note: A&P Assessment and Plan (1) MOISÉS (acute kidney injury): Code(s): N17.9 - Acute kidney failure, unspecified Status: Acute Assessment and Plan: multiple episodes noted since admission multifactorial issues present: prerenal factors relative hypotension (sometimes as low as 80s systolic) ongoing use of ARB (losartan) IV ibuprofen use contrast exposure (CT scan on 08/04/23) recurrent infection/sepsis (suspect major component) currently major issues are blood pressure and sepsis. evaluation during this hospital stay: renal ultrasound okay urine electrolytes prerenal urine eosinophils negative CPK mildly elevated (but not likely to affect kidney function) patient is afebrile. White count still low. He is hemodynamically stable. Oxygenation is stable With an FiO2 of 30% again today Urine output is good. 3045 in the last 24 hours BUN is 93 today and the creatinine came down a bit as well. Continue to observe off dialysis. Discussed with Dr Whitfield (2) Sepsis: Qualifiers: Sepsis type: sepsis due to unspecified organism Sepsis acute organ dysfunction status: with acute organ dysfunction Severe sepsis acute organ dysfunction type: acute renal failure Acute renal failure type: unspecified Severe sepsis shock status: without septic shock Qualified Code(s): A41.9 - Sepsis, unspecified organism; R65.20 - Severe sepsis without septic shock; N17.9 - Acute kidney failure, unspecified Code(s): A41.9 - Sepsis, unspecified organism Status: Acute Assessment and Plan: remains hemodynamically stable on no pressors abdominal fluid showed Bacteroides but not B fragilis, and Klebsiella. multiple issues/etiologies: recurrent abdominal abscesses as noted by imaging peritonitis (see recent ascites fluid cultures) Drains in place Afebrile White count 15.6 on Ceftriaxone and Flagyl (3) Acute respiratory failure: Qualifiers: Respiratory failure complication: hypoxia and hypercapnia Qualified Code(s): J96.01 - Acute respiratory failure with hypoxia; J96.02 - Acute respiratory failure with hypercapnia Code(s): J96.00 - Acute respiratory failure, unspecified whether with hypoxia or hypercapnia Status: Acute Assessment and Plan: s/p tracheostomy for prolonged ventilator weaning complicated by weakness and severe deconditioning on 30% oxygen. (4) Pelvic abscess in male: Code(s): K65.1 - Peritoneal abscess Status: Acute Assessment and Plan: previous drains removed s/p diverting colostomy Drains placed Surgery following closely (5) Decubitus ulcer: Code(s): L89.90 - Pressure ulcer of unspecified site, unspecified stage Status: Acute Assessment and Plan: s/p debridement and diverting colostomy local wound care Surgery following (6) Anemia: Qualifiers: Anemia type: other cause Other causes of anemia: chronic disease, other Qualified Code(s): D63.8 - Anemia in other chronic diseases classified elsewhere Code(s): D64.9 - Anemia, unspecified Status: Acute Assessment and Plan: due to operative interventions, acute illness and MOISÉS hemoglobin is bouncing around 9. getting Epogen Subjective Date/time seen: 09/17/23 09:02 Interval history: Omar is on the ventilator. Not much response. Still making lots of urine. Exam Narrative: General: elderly but WD/WN male in NAD Heart: IRRR, normal S1 and S2; no rub Lungs: BS symmetric and coarse. Abdomen: Bowel sounds positive but mildly diminished. Colostomy present. Extremities: 1+ bilateral pre sacral edema Skin: No rash or subQ nodules. Objective Data Vital Signs Vital Signs: Vital Signs - 24 hr 09/16/23 10:00 09/16/23 10:00 09/16/23 10:15 Temperature Pulse Rate 106 H 106 H 99 Respiratory Rate 18
[2023-09-17] MEDS: ASPIRIN 81 MG CHEWABLE TABLET 162 MG PO (09:03)
[2023-09-17] MEDS: ENOXAPARIN 30 MG/0.3 ML SYRINGE SUB-Q (09:04)
[2023-09-17] MEDS: PANTOPRAZOLE SODIUM IV 40 MG VIAL IV PUSH ×2 (09:04→20:59)
[2023-09-17] MEDS: COLLAGENASE OINT 30 GM TUBE 1 APPLIC TOPICAL (09:04)
[2023-09-17] MEDS: SODIUM BICARBONATE TAB 650 MG TABLET FEED TUBE ×2 (09:04→16:36)
[2023-09-17] MEDS: EPOETIN ALFA-EPBX 10,000 UNITS/ML VIAL 10000 UNITS SUB-Q (09:05)
[2023-09-17] MEDS: MINERAL OIL/WHITE PETROLATUM OINTMENT 1 APPLIC EACH EYE ×2 (09:06→20:59)
--- NOTE | 2023-09-17 10:51 | PCFNICU ---
ICU Rounding Note: Pt current nutrition is Vital AF 1.2 @ 20 ml/h trickle feeding. Tolerating Nutrition recommendation: Advance tube feeding when medically able. Goal rate 60 ml/h: 1584 kcal, 99 g protein, 1070 ml free water Last recorded weight is 124.4 kg. Bowel Motility: +1 BM 09/17 Labs Reviewed: Hgb 8.7, Hct 29.3, Alb 3.3, GFR 16, BUN 119, Cre 3.7, Glu 157 Meds Noted: Protonic, heparin, bumex Skin: No pressure injuries Additional Notes: Pt was discontinued from TPN and started on trickle feeding. Tolerating well. Advance tube feeding per surgery recs. Following daily in ICU rounds. Will montior weight, labs, skin, meds, TPN every Saturday and Saturday. .
[2023-09-17 12:21] LABS: Glucose Point of Care 153 mg/dl (65-105)
[2023-09-17] MEDS: AMINO ACIDS 5%/D15W/E-LYTES/CA 2,000 ML with MULTIVITAMINS-12 INJ VIAL 1 2.5 ML, MULTIV... 80 ML IV CONT (14:26)
[2023-09-17] MEDS: FAT EMULSIONS IV 20% 250 ML 20.8 ML IVPB (14:26)
[2023-09-17 17:18] LABS: Glucose Point of Care 149 mg/dl (65-105)
--- NOTE | 2023-09-17 18:13 | PM.IMPN ---
Progress Note: A&P Assessment and Plan (1) Respiratory failure: Qualifiers: Chronicity: chronic Respiratory failure complication: hypercapnia Qualified Code(s): J96.12 - Chronic respiratory failure with hypercapnia Code(s): J96.90 - Respiratory failure, unspecified, unspecified whether with hypoxia or hypercapnia Status: Acute Assessment and Plan: Patient admitted for elective repair of a large right inguinal hernia on 08/02/23. Post-operatively, he developed ileus, peritonitis, AFib/RVR, MOISÉS and HoTN. He was moved to the ICU on 08/06 for HoTN. On the morning of 08/15, patient developed acute respiratory distress. ABG 7.37/62/58 so BiPAP ordered but repeat ABG 7.15/101/91 so patient intubated 08/15. CXR reviewed showing diffuse lung disease c/w edema vs PNA vs atelectasis Trach placed 08/30; He remained on mechanical ventilation Trach had to be replaced on 09/09 CXR today showing left base atelectasis. ENT performed tracheoscopy 09/13 showing the trachea does curve into the anterior tracheal wall but patent Appreciate fur remodeler and ENT input. Wean vent as tolerated (2) Sepsis: Qualifiers: Sepsis type: sepsis due to unspecified organism Sepsis acute organ dysfunction status: with acute organ dysfunction Severe sepsis acute organ dysfunction type: acute renal failure Acute renal failure type: unspecified Severe sepsis shock status: without septic shock Qualified Code(s): A41.9 - Sepsis, unspecified organism; R65.20 - Severe sepsis without septic shock; N17.9 - Acute kidney failure, unspecified Code(s): A41.9 - Sepsis, unspecified organism Status: Acute Assessment and Plan: Currently being treated for cholecystitis + pelvic abscesses UCx 08/05, 08/06, 08/16 negative GB Cx 08/06 growing enterococcus but unable to perform sensitivities; treated with a course of linezolid stopped 08/19. Abscess Cx 08/06 Prevotella that is beta-lactamase positive BCx 08/06, 08/10 and 08/16 negative. MRSA nasal swab 08/[address] A/P 08/13 showing multiple intraperitoneal abscesses similar to 08/09 with worsening mass involving the right inguinal canal and right scrotum. 08/14: Multiple Abd drains placed with culture growing H. parainfluenza and prevotella (no sensitivities but beta lactamase positive) CT A/P 08/18 slight increase in fluid collection adjacent to LLQ pigtail drain measuring 3 cm, other fluid collections are either stable or slightly smaller in size, stable right groin infected hematoma, cystitis versus bladder wall thickening, Weathers catheter in place but balloon not visualized and mild fecal impaction. Tx with meropenem, linezolid. Micafungin added 08/11 he completed a course of linezolid stopped 08/19. meropenem changed to Cefepime and Flagyl. Flagyl and Cefepime stopped 08/23 Micafungin stopped 08/25 after 14 days course Zosyn started 08/23 through 08/26 WBC remaining normal, fevers resolved so All abx stopped on 08/26 -------- Recurrent fevers so re-cultured and Abx resumed 09/01 BCx 09/01, 09/07 negative Sputum Cx 09/01 negative UCx 09/01 negative; UCx 09/07 growing 10-49K ketan parapsilosis UE/LE Dopplers negative for DVT 09/07 Paracentesis 09/09 returning purulent fluid with cx growing Bacteroides, klebsiella pneumoniae. CT A/P 09/11 showing LLQ abscess 14cm and Pelvic abscess 12cm. Abd and pelvic drains placed 09/11: -- 1st cx: klebsiella pneumoniae CRE -- 2nd cx: Yeast and Klebsiella pneumoniae CRE Started on Flagyl and Rocephin 09/11 but Rocephin changed to Avycaz on 09/15; he remains on Flagyl Scrotal US 09/12 showing 1cm left epididymis mass likely benign and small left hydrocele with septation. 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
--- NOTE | 2023-09-17 18:16 | PM.PNGS ---
Progress Note: A&P Assessment and Plan (1) MOISÉS (acute kidney injury): Code(s): N17.9 - Acute kidney failure, unspecified Status: Acute Assessment and Plan: Creatinine has been decreasing the last 4 days. BUN finally less than the day before. (2) Respiratory failure: Qualifiers: Chronicity: chronic Respiratory failure complication: hypercapnia Qualified Code(s): J96.12 - Chronic respiratory failure with hypercapnia Code(s): J96.90 - Respiratory failure, unspecified, unspecified whether with hypoxia or hypercapnia Status: Acute Assessment and Plan: Not tiring on the vent. Only keeping pressure support. Essentially breathing on his own (3) Abdominal abscess: Status: Acute Assessment and Plan: 2 abdominal drains seemed to be effective. Will get CT scan abdomen and pelvis tomorrow morning to follow up with the collections drained as well as to check for any additional abscesses. Remains afebrile and white blood cell count decreased slightly from yesterday. (4) S/P partial colectomy: Code(s): Z90.49 - Acquired absence of other specified parts of digestive tract Status: Acute Assessment and Plan: Sigmoid resection showed diverticulitis with abscess and perforation. 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 Is receiving some airway pressure with tracheostomy. Review of Systems Review of Systems: All systems reviewed & are unremarkable except as noted in HPI and below (HPI) Exam Const: General: comfortable, patient obtunded (Sleeping soundly) and tired appearing Orientation/consciousness: patient obtunded GI: Inspection: Abdominal wall edema (Less edematous), distended, incision (Dry and healing quite well), no visible herniation and other (Stoma pink and healthy, small liquid stool coming out) GI Palp: Yes Soft to palpation, No Tenderness to palpation present (GI), No Guarding due to palpation present (GI) (No peritoneal signs), No Hernia present and No Palpable mass present Other: 900 cc out drain 1. Yesterday. So far today only 200 and less out drain number 2 today and yesterday. : Penis: Yes edematous Scrotum: edematous Urinary Catheter: Urinary Catheter: patent and draining Extrem: General: edema (All extremities have less edema) Objective Data Vital Signs Vital Signs: Vital Signs - 24 hr 09/16/23 19:56 09/16/23 20:18 09/16/23 20:00 Temperature Pulse Rate 108 H Respiratory Rate Blood Pressure Pulse Oximetry 98 Oxygen Delivery Mechanical Ventilation Mechanical Ventilation Fraction of Inspired Oxygen 30 30 30 09/16/23 20:00 09/16/23 22:00 09/16/23 20:00 Temperature 37.2 C Pulse Rate 104 H 102 H 104 H Respiratory Rate 22 H Blood Pressure 141/73 H Pulse Oximetry 98 Oxygen Delivery Fraction of Inspired Oxygen 09/16/23 22:00 09/16/23 23:35 09/17/23 00:00 Temperature 37.2 C Pulse Rate 98 107 H 96 Respiratory Rate 22 H Blood Pressure 127/68 Pulse Oximetry 97 98 Oxygen Delivery Mechanical Ventilation Fraction of Inspired Oxygen 30 09/17/23 00:00 09/17/23 00:00 09/17/23 00:00 Temperature 37.2 C Pulse Rate 96 Respiratory Rate 27 H Blood Pressure 111/68 Pulse Oximetry 97 97 Oxygen Delivery Mechanical Ventilation Fraction of Inspired Oxygen 30 30 09/17/23 03:56 09/17/23 03:56 09/17/23 02:42 Temperature Pulse Rate 84 105 H Respiratory Rate 22 H Bl
[2023-09-17] MEDS: HYDROmorphone HCL INJ (*CRX) 1 MG/ML SYR 0.5 MG IV PUSH (21:00)
[2023-09-18] VITALS (24 sets, daily range): BP systolic 91–146; BP diastolic 56–89; PULSE 88–118; RESP 21–34; TEMP 36.7–38.1; O2SAT 96–100
[2023-09-18 00:32] LABS: Glucose Point of Care 147 mg/dl (65-105)
[2023-09-18] MEDS: HYDROmorphone HCL INJ (*CRX) 1 MG/ML SYR 0.5 MG IV PUSH ×2 (02:53→20:18)
[2023-09-18] MEDS: LEVOTHYROXINE SODIUM INJ 100 MCG/5 ML VIAL 50 MCG IV PUSH (05:20)
[2023-09-18] MEDS: metroNIDAZOLE 500 MG/ISO 100ML 500 MG/100 ML BAG 100 MG IVPB ×3 (05:34→21:19)
[2023-09-18] MEDS: CENTRAL LINE FLUSH 10 ML IV PUSH ×3 (05:35→20:19)
[2023-09-18 05:56] LABS: Alanine Aminotransferase 37 U/L (6-50); Albumin Level 3.4 g/dL (3.5-5.1); Alkaline Phosphatase 173 U/L (38-126); Anion Gap 13 mmol/L (8-16); Aspartate Amino Transferase 49 U/L (17-59); Bilirubin,Total 0.7 mg/dL (0.2-1.3); Blood Urea Nitrogen 114 mg/dL (9-20); Calcium 8.8 mg/dL (8.4-10.2); Carbon Dioxide 17 mmol/L (22-30); Chloride 110 mmol/L (98-107); Estimated CRCL calculation 20 ml/min; Estimated Glomerular Filt Rate 17; Glucose 150 mg/dL (65-110); Magnesium 2.7 mg/dL (1.6-2.3); Phosphorus 6.6 mg/dL (2.5-4.5); Potassium 4.8 mmol/L (3.4-5.0); Sodium 140 mmol/L (137-145); Triglycerides 102 mg/dL (<150)
[2023-09-18 06:00] LABS: Hematocrit 30.7 % (42.0-52.0); Hemoglobin 9.4 g/dL (14.0-18.0); Mean Corpuscular HGB Conc 30.6 g/dl (32-36); Mean Corpuscular Volume 98.1 fl (80-100); Mean Platelet Volume 11.1 fl (7.4-10.4); Platelet Count Result 393 k/mm3 (150-375); Red Blood Count 3.13 M/mm3 (4.6-6.20); Red Cell Distribution Width 15.9 % (11.5-14.5)
[2023-09-18 07:38] LABS: Band Neutrophils Percent 8 % (0-6); Eosinophils Percent Manual 2 % (0-4); Hypochromasia 1+ (NORMAL); Monocytes Absolute Manual 0.45 K/mm3 (0.1-0.90); Monocytes Percent Manual 3 % (3-9); Myelocytes Percent 3 %; Neutrophils Percent Manual 66 % (46-73); Platelet Estimate Adequate (Adequate); Schistocytes None Seen (NORMAL); Total Cells Counted 100
[2023-09-18] MEDS: ASPIRIN 81 MG CHEWABLE TABLET 162 MG PO (08:57)
[2023-09-18] MEDS: ENOXAPARIN 30 MG/0.3 ML SYRINGE SUB-Q (08:58)
[2023-09-18] MEDS: PANTOPRAZOLE SODIUM IV 40 MG VIAL IV PUSH ×2 (08:58→20:25)
[2023-09-18] MEDS: COLLAGENASE OINT 30 GM TUBE 1 APPLIC TOPICAL (08:58)
[2023-09-18] MEDS: SODIUM BICARBONATE TAB 650 MG TABLET FEED TUBE ×2 (08:58→17:15)
--- NOTE | 2023-09-18 09:59 | P.PNNP_ITS ---
Progress Note: A&P Assessment and Plan (1) MOISÉS (acute kidney injury): Code(s): N17.9 - Acute kidney failure, unspecified Status: Acute Assessment and Plan: * multiple episodes noted since admission * multifactorial issues present: * prerenal factors * relative hypotension (sometimes as low as 80s systolic) * ongoing use of ARB (losartan) * IV ibuprofen use * contrast exposure (CT scan on 08/04/23) * recurrent infection/sepsis (suspect major component) * currently major issues are blood pressure and sepsis. * evaluation during this hospital stay: * renal ultrasound okay * urine electrolytes prerenal * urine eosinophils negative * CPK mildly elevated (but not likely to affect kidney function) * patient is afebrile. White count still low. He is hemodynamically stable. * Oxygenation is stable With an FiO2 of 30% again today * urine output still doing well. Creatinine has come down a little bit more. * Will continue to follow (2) Sepsis: Qualifiers: Sepsis type: sepsis due to unspecified organism Sepsis acute organ dysfunction status: with acute organ dysfunction Severe sepsis acute organ dysfunction type: acute renal failure Acute renal failure type: unspecified Severe sepsis shock status: without septic shock Qualified Code(s): A41.9 - Sepsis, unspecified organism; R65.20 - Severe sepsis without septic shock; N17.9 - Acute kidney failure, unspecified Code(s): A41.9 - Sepsis, unspecified organism Status: Acute Assessment and Plan: * remains hemodynamically stable * on no pressors * abdominal fluid showed Bacteroides but not B fragilis, and Klebsiella. * multiple issues/etiologies: * recurrent abdominal abscesses as noted by imaging * peritonitis (see recent ascites fluid cultures) * Drains in place * Afebrile * White count 15. * on Ceftriaxone and Flagyl (3) Acute respiratory failure: Qualifiers: Respiratory failure complication: hypoxia and hypercapnia Qualified Code(s): J96.01 - Acute respiratory failure with hypoxia; J96.02 - Acute respiratory failure with hypercapnia Code(s): J96.00 - Acute respiratory failure, unspecified whether with hypoxia or hypercapnia Status: Acute Assessment and Plan: * s/p tracheostomy for prolonged ventilator weaning * complicated by weakness and severe deconditioning * on 30% oxygen. (4) Pelvic abscess in male: Code(s): K65.1 - Peritoneal abscess Status: Acute Assessment and Plan: * previous drains removed * s/p diverting colostomy * Drains placed * getting TPN for nutrition * tolerating the trickle tube feedings * Surgery following closely (5) Decubitus ulcer: Code(s): L89.90 - Pressure ulcer of unspecified site, unspecified stage Status: Acute Assessment and Plan: * s/p debridement and diverting colostomy * local wound care * Surgery following (6) Anemia: Qualifiers: Anemia type: other cause Other causes of anemia: chronic disease, other Qualified Code(s): D63.8 - Anemia in other chronic diseases classified [facility] Code(s): D64.9 - Anemia, unspecified Status: Acute Assessment and Plan: * due to operative interventions, acute illness and MOISÉS hemoglobin is bouncing around 9. * getting Epogen subcutaneously 3 times a week Subjective Date/time seen: 09/18/23 09:59 Interval history: Patient is resting comfortably in bed. On the ventilator.
--- NOTE | 2023-09-18 09:59 | PM.PNNEP ---
Progress Note: A&P Assessment and Plan (1) MOISÉS (acute kidney injury): Code(s): N17.9 - Acute kidney failure, unspecified Status: Acute Assessment and Plan: multiple episodes noted since admission multifactorial issues present: prerenal factors relative hypotension (sometimes as low as 80s systolic) ongoing use of ARB (losartan) IV ibuprofen use contrast exposure (CT scan on 08/04/23) recurrent infection/sepsis (suspect major component) currently major issues are blood pressure and sepsis. evaluation during this hospital stay: renal ultrasound okay urine electrolytes prerenal urine eosinophils negative CPK mildly elevated (but not likely to affect kidney function) patient is afebrile. White count still low. He is hemodynamically stable. Oxygenation is stable With an FiO2 of 30% again today urine output still doing well. Creatinine has come down a little bit more. Will continue to follow (2) Sepsis: Qualifiers: Sepsis type: sepsis due to unspecified organism Sepsis acute organ dysfunction status: with acute organ dysfunction Severe sepsis acute organ dysfunction type: acute renal failure Acute renal failure type: unspecified Severe sepsis shock status: without septic shock Qualified Code(s): A41.9 - Sepsis, unspecified organism; R65.20 - Severe sepsis without septic shock; N17.9 - Acute kidney failure, unspecified Code(s): A41.9 - Sepsis, unspecified organism Status: Acute Assessment and Plan: remains hemodynamically stable on no pressors abdominal fluid showed Bacteroides but not B fragilis, and Klebsiella. multiple issues/etiologies: recurrent abdominal abscesses as noted by imaging peritonitis (see recent ascites fluid cultures) Drains in place Afebrile White count 15. on Ceftriaxone and Flagyl (3) Acute respiratory failure: Qualifiers: Respiratory failure complication: hypoxia and hypercapnia Qualified Code(s): J96.01 - Acute respiratory failure with hypoxia; J96.02 - Acute respiratory failure with hypercapnia Code(s): J96.00 - Acute respiratory failure, unspecified whether with hypoxia or hypercapnia Status: Acute Assessment and Plan: s/p tracheostomy for prolonged ventilator weaning complicated by weakness and severe deconditioning on 30% oxygen. (4) Pelvic abscess in male: Code(s): K65.1 - Peritoneal abscess Status: Acute Assessment and Plan: previous drains removed s/p diverting colostomy Drains placed getting TPN for nutrition tolerating the trickle tube feedings Surgery following closely (5) Decubitus ulcer: Code(s): L89.90 - Pressure ulcer of unspecified site, unspecified stage Status: Acute Assessment and Plan: s/p debridement and diverting colostomy local wound care Surgery following (6) Anemia: Qualifiers: Anemia type: other cause Other causes of anemia: chronic disease, other Qualified Code(s): D63.8 - Anemia in other chronic diseases classified elsewhere Code(s): D64.9 - Anemia, unspecified Status: Acute Assessment and Plan: due to operative interventions, acute illness and MOISÉS hemoglobin is bouncing around 9. getting Epogen subcutaneously 3 times a week Subjective Date/time seen: 09/18/23 09:59 Interval history: Patient is resting comfortably in bed. On the ventilator. Exam Narrative: General: elderly but WD/WN male in NAD Heart: IRRR, normal S1 and S2; no rub Or gallop Lungs: BS mildly coarse bilaterally Abdomen: Bowel sounds positive but mildly diminished. Colostomy present. Extremities: 1+ bilateral pre sacral edema Skin: No rash . Objective Data Vital Signs Vital Signs: Vital Signs - 24 hr 09/17/23 10:00 09/17/23 11:32 09/17/23 10:00 Temperature 98.3 F Pulse Rate 88 83 86 Respiratory Rate 2
--- NOTE | 2023-09-18 11:38 | PCFNICU ---
ICU Rounding Note: Pt current nutrition is TPN Clinmix 5/15E @ 80 ml/h: 1863 kcal, 96 g protein, 2170 ml total volume. + Tube feeding: Trickle feeding Vital 1.2 @ 20 ml/h: 528 kcal, 33 g protein, 357 ml free water. . Nutrition recommendation: Continue with current nutrition care plan and orders. Last recorded weight is 122.9 kg. Bowel Motility: 100 ml output in colostomy Labs Reviewed: Hgb 9.4, Hct 30.7, Alb 3.4, GFR 17, BUN 14, Cre 3.5, PO4 6.6 Meds Noted: No sedation. Flagyl, protonix Skin: Edema Additional Notes: Trickle tube feeding running to promote gut integrity. Nutrition needs met with TPN. Following daily in ICU rounds. Will montior weight, labs, skin, meds, TPN every Saturday and Saturday. .
[2023-09-18 12:07] LABS: Glucose Point of Care 174 mg/dl (65-105)
[2023-09-18] MEDS: AMINO ACIDS 5%/D15W/E-LYTES/CA 2,000 ML with MULTIVITAMINS-12 INJ VIAL 1 2.5 ML, MULTIV... 80 ML IV CONT (14:54)
[2023-09-18] MEDS: FAT EMULSIONS IV 20% 250 ML 20.8 ML IVPB (14:55)
--- NOTE | 2023-09-18 15:06 | PM.PNGS ---
Progress Note: A&P Assessment and Plan (1) MOISÉS (acute kidney injury): Code(s): N17.9 - Acute kidney failure, unspecified Status: Acute Assessment and Plan: Slowly improving over the past 2 days with BUN down slightly to 114 and creatinine down to 3.5. Nephroloy following. (2) Respiratory failure: Qualifiers: Chronicity: chronic Respiratory failure complication: hypercapnia Qualified Code(s): J96.12 - Chronic respiratory failure with hypercapnia Code(s): J96.90 - Respiratory failure, unspecified, unspecified whether with hypoxia or hypercapnia Status: Acute Assessment and Plan: Did well on pressure support yesterday but switched to CMV last night when he became tired and tachypneic. He was given a break today on CMV. [employer] plans to switch back to pressure support tomorrow. (3) Abdominal abscess: Status: Acute Assessment and Plan: Output from both abdominal drains decreasing over the past two days. WBC trending down over the past 2 days. He has been afebrile for nearly a week but began to have a low-grade fever this afternoon. CT scan of the abdomen and pelvis ordered today to re-evaluate. (4) S/P partial colectomy: Code(s): Z90.49 - Acquired absence of other specified parts of digestive tract Status: Acute Assessment and Plan: Two weeks postop from extensive adhesiolysis and sigmoidectomy with end descending colostomy. Pathology showed diverticulitis with perforation and abscess. 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 Stoma appears healthy and viable. Tolerating trickle tube feedings at 20 cc/hr. Depending on the CT results, we may consider slowly increasing the tube feeding rate. 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 Armijo. Subjective Subjective Date/Time Seen: 09/18/23 15:06 Interval history: Chart reviewed since last seen. He was on pressure support during the day yesterday on his trach and switched back to CMV last night as he was tired and tachypneic. He was given a break today and [employer] Technical Lead plans to switch back to pressure support tomorrow. His daughter is at the bedside and states he has been more tired the past few days and communicating less and less. He still wakes up and answers questions appropriately, but is quick to fall asleep. He has been afebrile for day but this afternoon has a temp of 100.2F. His colostomy output is still low but has gone up some in the past 2 days. He is tolerating the tube feeding at 20 cc/hr and still on TPN at 80 mL/hr. He has 2 percutaneous [address] catheters in place in the mid to left lower quadrant. Output from drain 1 > drain 2. The overall output of both drains has slowly decreased over the past 2 days. WBC trending down over past 2 days. He is currently on metronidazole and ceftazidime/avibactam. Nursing reports increase in sputum production today with thick secretions being suctioned with NT suctioning. Review of Systems Review of Systems: ROS unobtainable: Yes other (tracheostomy and limited communication due to lethargy) Exam Const: General: no acute distress, ill appearing and tired appearing Orientation/consciousness: Other orientation findings (unable to assess) GI: Inspection: Abdominal wall edema, distended and other (colostomy functioning with small liquid stool, stoma pink and viable) GI Palp: Yes Soft to palpation, Yes Tenderness to palpation present (GI) (grimacing with palpation throughout, but will not nod or answer if tender) and No Guarding due to palpation present (GI) Auscultation: normal bowel sounds Other: Two pigtail catheters in the mid to left lower quadrant with gauze dres
[2023-09-18] MEDS: SCOPOLAMINE 1 MG PATCH 1 PATCH TRANSDERM (17:14)
[2023-09-18 18:33] LABS: Glucose Point of Care 183 mg/dl (65-105)
[2023-09-18] MEDS: ACETAMINOPHEN ELIXIR 325 MG/10.15 ML UDC 650 MG FEED TUBE (18:57)
[2023-09-19] VITALS (23 sets, daily range): BP systolic 91–165; BP diastolic 64–82; PULSE 80–102; RESP 24–30; TEMP 37.4–37.9; O2SAT 94–99
[2023-09-19] MEDS: ACETAMINOPHEN ELIXIR 325 MG/10.15 ML UDC 650 MG FEED TUBE (01:09)
[2023-09-19 01:18] LABS: Glucose Point of Care 165 mg/dl (65-105)
[2023-09-19] MEDS: HYDROmorphone HCL INJ (*CRX) 1 MG/ML SYR 0.5 MG IV PUSH (06:02)
[2023-09-19] MEDS: LEVOTHYROXINE SODIUM INJ 100 MCG/5 ML VIAL 50 MCG IV PUSH (06:03)
[2023-09-19] MEDS: CENTRAL LINE FLUSH 10 ML IV PUSH ×2 (06:04→14:02)
[2023-09-19] MEDS: metroNIDAZOLE 500 MG/ISO 100ML 500 MG/100 ML BAG 100 MG IVPB ×3 (06:07→20:40)
[2023-09-19 06:19] LABS: Basophils Absolute Auto 0.1 K/mm3 (0.0-0.1); Basophils Percent Auto 0.5 % (0.2-1.2); Eosinophils Absolute Auto 0.5 K/mm3 (0-0.3); Hematocrit 30.4 % (42.0-52.0); Hemoglobin 9.4 g/dL (14.0-18.0); Immature Granulocyte Absolute 0.71 K/mm3 (0.00-0.031); Immature Granulocyte Percent A 4.3 % (0-0.5); Lymphocytes Absolute Auto 2.11 K/mm3 (0.9-3.2); Lymphocytes Percent Auto 12.8 % (18.3-44.2); Mean Corpuscular HGB Conc 30.9 g/dl (32-36); Mean Corpuscular Hemoglobin 30.2 pg (26-34); Mean Corpuscular Volume 97.7 fl (80-100); Mean Platelet Volume 10.4 fl (7.4-10.4); Monocytes Absolute Auto 0.7 K/mm3 (0.1-0.6); Neutrophils Absolute Auto 12.4 K/mm3 (1.3-6.7); Neutrophils Percent Auto 75.4 % (45.5-73.1); Platelet Count Result 358 k/mm3 (150-375); Red Blood Count 3.11 M/mm3 (4.6-6.20); Red Cell Distribution Width 16.1 % (11.5-14.5); White Blood Count 16.4 K/mm3 (4.5-10.0)
[2023-09-19 06:32] LABS: Alanine Aminotransferase 30 U/L (6-50); Albumin Level 3.3 g/dL (3.5-5.1); Alkaline Phosphatase 164 U/L (38-126); Anion Gap 12 mmol/L (8-16); Aspartate Amino Transferase 31 U/L (17-59); Bilirubin,Total 0.8 mg/dL (0.2-1.3); Blood Urea Nitrogen 115 mg/dL (9-20); Calcium 8.8 mg/dL (8.4-10.2); Carbon Dioxide 17 mmol/L (22-30); Chloride 110 mmol/L (98-107); Estimated CRCL calculation 21 ml/min; Estimated Glomerular Filt Rate 17; Glucose 166 mg/dL (65-110); Magnesium 2.7 mg/dL (1.6-2.3); Phosphorus 6.2 mg/dL (2.5-4.5); Potassium 5.1 mmol/L (3.4-5.0); Sodium 139 mmol/L (137-145)
[2023-09-19] MEDS: ASPIRIN 81 MG CHEWABLE TABLET 162 MG PO (08:06)
[2023-09-19] MEDS: SODIUM BICARBONATE TAB 650 MG TABLET FEED TUBE ×2 (08:06→17:22)
[2023-09-19] MEDS: PANTOPRAZOLE SODIUM IV 40 MG VIAL IV PUSH ×2 (08:07→21:40)
[2023-09-19] MEDS: ENOXAPARIN 30 MG/0.3 ML SYRINGE SUB-Q (08:07)
[2023-09-19] MEDS: COLLAGENASE OINT 30 GM TUBE 1 APPLIC TOPICAL (08:08)
--- NOTE | 2023-09-19 09:44 | P.PNNP_ITS ---
Progress Note: A&P Assessment and Plan (1) MOISÉS (acute kidney injury): Code(s): N17.9 - Acute kidney failure, unspecified Status: Acute Assessment and Plan: * multiple episodes noted since admission * multifactorial issues present: * prerenal factors * relative hypotension (sometimes as low as 80s systolic) * ongoing use of ARB (losartan) * IV ibuprofen use * contrast exposure (CT scan on 08/04/23) * recurrent infection/sepsis (suspect major component) * currently major issues are blood pressure and sepsis. * evaluation during this hospital stay: * renal ultrasound okay * urine electrolytes prerenal * urine eosinophils negative * CPK mildly elevated (but not likely to affect kidney function) * patient is afebrile. White count around 16 * Oxygenation is stable With an FiO2 of 30% again today * urine output still doing well. He made 3270cc of urine in the last 24hours. Creatinine has come down a little bit more. * Will continue to follow (2) Sepsis: Qualifiers: Sepsis type: sepsis due to unspecified organism Sepsis acute organ dysfunction status: with acute organ dysfunction Severe sepsis acute organ dysfunction type: acute renal failure Acute renal failure type: unspecified Severe sepsis shock status: without septic shock Qualified Code(s): A41.9 - Sepsis, unspecified organism; R65.20 - Severe sepsis without septic shock; N17.9 - Acute kidney failure, unspecified Code(s): A41.9 - Sepsis, unspecified organism Status: Acute Assessment and Plan: * remains hemodynamically stable * on no pressors * abdominal fluid showed Bacteroides but not B fragilis, and Klebsiella. * multiple issues/etiologies: * recurrent abdominal abscesses as noted by imaging * peritonitis (see recent ascites fluid cultures) * Drains in place * Afebrile * White count 16 * on Ceftriaxone and Flagyl (3) Acute respiratory failure: Qualifiers: Respiratory failure complication: hypoxia and hypercapnia Qualified Code(s): J96.01 - Acute respiratory failure with hypoxia; J96.02 - Acute respiratory failure with hypercapnia Code(s): J96.00 - Acute respiratory failure, unspecified whether with hypoxia or hypercapnia Status: Acute Assessment and Plan: * s/p tracheostomy for prolonged ventilator weaning * complicated by weakness and severe deconditioning * on 30% oxygen. (4) Pelvic abscess in male: Code(s): K65.1 - Peritoneal abscess Status: Acute Assessment and Plan: * Drains in place. * Tolerating tube feedings (5) Decubitus ulcer: Code(s): L89.90 - Pressure ulcer of unspecified site, unspecified stage Status: Acute Assessment and Plan: * s/p debridement and diverting colostomy * local wound care * Surgery following (6) Anemia: Qualifiers: Anemia type: other cause Other causes of anemia: chronic disease, other Qualified Code(s): D63.8 - Anemia in other chronic diseases classified elsewhere Code(s): D64.9 - Anemia, unspecified Status: Acute Assessment and Plan: * due to operative interventions, acute illness and MOISÉS hemoglobin is bouncing around 9. * getting Epogen subcutaneously 3 times a week Subjective Date/time seen: 09/19/23 09:44 Interval history: About the same today. Exam Narrative: General: elderly but WD/WN male in NAD Heart: IRRR, normal S1 and S2; no rub Or gallop Lungs:
--- NOTE | 2023-09-19 09:44 | PM.PNNEP ---
Progress Note: A&P Assessment and Plan (1) MOISÉS (acute kidney injury): Code(s): N17.9 - Acute kidney failure, unspecified Status: Acute Assessment and Plan: multiple episodes noted since admission multifactorial issues present: prerenal factors relative hypotension (sometimes as low as 80s systolic) ongoing use of ARB (losartan) IV ibuprofen use contrast exposure (CT scan on 08/04/23) recurrent infection/sepsis (suspect major component) currently major issues are blood pressure and sepsis. evaluation during this hospital stay: renal ultrasound okay urine electrolytes prerenal urine eosinophils negative CPK mildly elevated (but not likely to affect kidney function) patient is afebrile. White count around 16 Oxygenation is stable With an FiO2 of 30% again today urine output still doing well. He made 3270cc of urine in the last 24hours. Creatinine has come down a little bit more. Will continue to follow (2) Sepsis: Qualifiers: Sepsis type: sepsis due to unspecified organism Sepsis acute organ dysfunction status: with acute organ dysfunction Severe sepsis acute organ dysfunction type: acute renal failure Acute renal failure type: unspecified Severe sepsis shock status: without septic shock Qualified Code(s): A41.9 - Sepsis, unspecified organism; R65.20 - Severe sepsis without septic shock; N17.9 - Acute kidney failure, unspecified Code(s): A41.9 - Sepsis, unspecified organism Status: Acute Assessment and Plan: remains hemodynamically stable on no pressors abdominal fluid showed Bacteroides but not B fragilis, and Klebsiella. multiple issues/etiologies: recurrent abdominal abscesses as noted by imaging peritonitis (see recent ascites fluid cultures) Drains in place Afebrile White count 16 on Ceftriaxone and Flagyl (3) Acute respiratory failure: Qualifiers: Respiratory failure complication: hypoxia and hypercapnia Qualified Code(s): J96.01 - Acute respiratory failure with hypoxia; J96.02 - Acute respiratory failure with hypercapnia Code(s): J96.00 - Acute respiratory failure, unspecified whether with hypoxia or hypercapnia Status: Acute Assessment and Plan: s/p tracheostomy for prolonged ventilator weaning complicated by weakness and severe deconditioning on 30% oxygen. (4) Pelvic abscess in male: Code(s): K65.1 - Peritoneal abscess Status: Acute Assessment and Plan: Drains in place. Tolerating tube feedings (5) Decubitus ulcer: Code(s): L89.90 - Pressure ulcer of unspecified site, unspecified stage Status: Acute Assessment and Plan: s/p debridement and diverting colostomy local wound care Surgery following (6) Anemia: Qualifiers: Anemia type: other cause Other causes of anemia: chronic disease, other Qualified Code(s): D63.8 - Anemia in other chronic diseases classified elsewhere Code(s): D64.9 - Anemia, unspecified Status: Acute Assessment and Plan: due to operative interventions, acute illness and MOISÉS hemoglobin is bouncing around 9. getting Epogen subcutaneously 3 times a week Subjective Date/time seen: 09/19/23 09:44 Interval history: About the same today. Exam Narrative: General: elderly but WD/WN male in NAD Heart: IRRR, normal S1 and S2; no rub Or gallop Lungs: BS mildly coarse Abdomen: Bowel sounds positive but mildly diminished. Colostomy present. Extremities: 1+ bilateral pre sacral edema Skin: No rash or subQ nodules Objective Data Vital Signs Vital Signs: Vital Signs - 24 hr 09/18/23 10:00 09/18/23 10:00 09/18/23 10:30 Temperature 99.8 F H Pulse Rate 97 97 94 Respiratory Rate 27 H Blood Pressure 115/71 Pulse Oximetry 97 97 Oxygen Delivery Mechanical Ventilation Fraction of Inspired Oxygen 30 09/18/23 11:4
[2023-09-19] MEDS: EPOETIN ALFA-EPBX 10,000 UNITS/ML VIAL 10000 UNITS SUB-Q (10:11)
--- NOTE | 2023-09-19 10:55 | PCFNICU ---
ICU Rounding Note: Pt current nutrition is Tube feeding: Vital 1.2 @ 40 ml/h: ON HOLD due to high residuals. TPN Clinmix 5/15E @ 80 ml/h: 1863 kcal, 96 g protein, 2170 total volume. Nutrition recommendation: 1. Decrease Vital 1.2 to 20 ml/h to maintain gut integrity. Re-evaluate when ileostomy output increases. 2. Continue full volume of TPN @ 80 ml/h to meet protein energy needs; switch to plain formula without electrolytes due to increased potassium labs Last recorded weight is 109 kg. Bowel Motility: 35 ml output from ileostomy. [address] Labs Reviewed: Hgb 9.4, Hct 30.4, Alb 3.3, K+ 5.1, GFR 17, BUN 115, Cre 3.4, Glu 166 Meds Noted: No sedation. No pressors. Protonix, zosyn Skin: drains in place Additional Notes: Vital AF 1.2 was increased from 20 ml/h trickle feeding to 40ml/h; pt then developed intolerance with residuals of 440 ml and TF was placed on hold. Pt likely has not recovered enough gut function to increase tube feedings to meet nutrition needs. Recommend meeting nutrition needs with TPN and re-evaluate when output from ileostomy increases. Following daily in ICU rounds. Will montior weight, labs, skin, meds, TPN every Saturday and Saturday. .
[2023-09-19 12:08] LABS: Glucose Point of Care 176 mg/dl (65-105)
--- NOTE | 2023-09-19 14:53 | PM.PNGS ---
Progress Note: A&P Assessment and Plan (1) Abdominal abscess: Status: Acute Assessment and Plan: CT abdomen and pelvis reviewed from yesterday. There is decompression of the abscess that drain 2 is located in and minimal residual gas and fluid where drain 1 is located. No new fluid collections noted on CT. Continue to monitor perc drains. Continue IV antibiotics. (2) MOISÉS (acute kidney injury): Code(s): N17.9 - Acute kidney failure, unspecified Status: Acute Assessment and Plan: Slowly improving with creatinine down slightly more today. BUN still 115. Making good urine. Nephrology following. (3) Respiratory failure: Qualifiers: Chronicity: chronic Respiratory failure complication: hypercapnia Qualified Code(s): J96.12 - Chronic respiratory failure with hypercapnia Code(s): J96.90 - Respiratory failure, unspecified, unspecified whether with hypoxia or hypercapnia Status: Acute Assessment and Plan: Doing well when on pressure support but still requiring breaks. Management per Aluminum Siding Applicator. (4) S/P partial colectomy: Code(s): Z90.49 - Acquired absence of other specified parts of digestive tract Status: Acute Assessment and Plan: Two weeks postop from extensive adhesiolysis and sigmoidectomy with end descending colostomy. Pathology showed diverticulitis with perforation and abscess. 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 Stoma appears healthy and viable. Tube feeding rate increased to 40 cc/hr and patient had a high residual this morning. Tube feedings put on hold and will be resumed later today at previous rate. 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 Will discuss with Dr. Armijo potentially switching to TPN without electrolytes due to electrolyte imbalance. Plan I have discussed the patient's case and plan of care with Dr. Armijo. Subjective Subjective Date/Time Seen: 09/19/23 14:53 Interval history: Patient seen in the ICU with family at the bedside. He has a tracheostomy and is on CMV settings on the ventilator. Per nursing, his tube feedings were stopped this morning due to high residual. His tube feeding was increased to 40 mL/hr last night. His ostomy output has increased slightly and there is about 100 cc of stool in the bag now. Overall decrease in perc drain #2 output, but perc drain #1 is still high. Yesterday, he began having fevers again with a tmax of 100.6F and today he has been between 99.4-99.9F. Review of Systems Review of Systems: ROS unobtainable: Yes other (tracheostomy ) Exam Const: General: comfortable, awake and tired appearing Neck: Other: tracheostomy on CMV setting on ventilator GI: Inspection: Abdominal wall edema, distended, incision (dry and fabian intact, no erythema) and other (colostomy functioning with liquid stool, stoma pink and viable) GI Palp: Yes Soft to palpation, Yes Tenderness to palpation present (GI) (nods that he is tender in RLQ and LLQ), No Guarding due to palpation present (GI) and No Hernia present Auscultation: normal bowel sounds Other: Two pigtail catheters in the mid to left lower quadrant with gauze dressings dry and intact. Drain 1 with 540 cc out yesterday and about 300 cc of green-brown liquid with sediment in the bag now. Drain 2 with 140 cc out yesterday and about 50 cc green-brown output in the bag now. : Male General Exam: Yes edema Scrotum: scrotal swelling Urinary Catheter: Urinary Catheter: patent and draining Objective Data Vital Signs Vital Signs: Vital Signs
[2023-09-19] MEDS: AMINO ACIDS 5%/D15W/E-LYTES/CA 2,000 ML with MULTIVITAMINS-12 INJ VIAL 1 2.5 ML, MULTIV... 80 ML IV CONT (15:19)
[2023-09-19] MEDS: FAT EMULSIONS IV 20% 250 ML 20.8 ML IVPB (15:20)
[2023-09-19] MEDS: AMINO ACIDS 5%/DEXTROSE 15% 2,000 ML with MULTIVITAMINS-12 INJ VIAL 1 2.5 ML, MULTIVITA... 80 ML IV CONT (17:22)
[2023-09-19 19:07] LABS: Glucose Point of Care 157 mg/dl (65-105)
[2023-09-20] VITALS (25 sets, daily range): BP systolic 111–134; BP diastolic 69–87; PULSE 85–109; RESP 19–31; TEMP 37.3–38; O2SAT 96–99
[2023-09-20] MEDS: CENTRAL LINE FLUSH 10 ML IV PUSH ×4 (00:24→21:39)
[2023-09-20 00:53] LABS: Glucose Point of Care 150 mg/dl (65-105)
[2023-09-20] MEDS: metroNIDAZOLE 500 MG/ISO 100ML 500 MG/100 ML BAG 100 MG IVPB ×3 (06:30→21:38)
[2023-09-20] MEDS: LEVOTHYROXINE SODIUM INJ 100 MCG/5 ML VIAL 50 MCG IV PUSH (06:31)
--- NOTE | 2023-09-20 06:57 | PM.PNGS ---
Progress Note: A&P Assessment and Plan (1) S/P partial colectomy: Code(s): Z90.49 - Acquired absence of other specified parts of digestive tract Status: Acute Assessment and Plan: bowel function returning. Has good bowel sounds this morning and starting to put more out the colostomy. Rectal stump continues to be a problem as there is old stool draining from the rectum contaminating the perianal wound. Will give a couple of soap suds enemas today to try to read a Prachi this stool still in the rectal stump. Drain output seem less than they were the previous 2 nights. Will remove wound fabian today and stop dressing changes. (2) Colostomy status: Code(s): Z93.3 - Colostomy status Status: Acute Assessment and Plan: More output than there has been. Bowel function returning. Colostomy looks healthy. 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 Debrided again some necrotic loose material. Will give enemas today to hopefully eradicate the continued fecal soilage from the rectal stump. Continue collagenase dressing changes daily and p.r.n.. (4) Fever: Qualifiers: Fever type: unspecified Qualified Code(s): R50.9 - Fever, unspecified Code(s): R50.9 - Fever, unspecified Status: Acute Assessment and Plan: Low-grade fever. White blood cell count pending today. (5) Abdominal abscess: Status: Acute Assessment and Plan: Drained with pigtail catheters. Follow-up CT scan earlier this week did not show any new undrained accumulations. (6) Respiratory failure: Qualifiers: Chronicity: chronic Respiratory failure complication: hypercapnia Qualified Code(s): J96.12 - Chronic respiratory failure with hypercapnia Code(s): J96.90 - Respiratory failure, unspecified, unspecified whether with hypoxia or hypercapnia Status: Acute Assessment and Plan: Continues on vent with tracheostomy. (7) Protein-calorie malnutrition, severe: Code(s): E43 - Unspecified severe protein-calorie malnutrition Status: Acute Assessment and Plan: Tube feeds at 20 an hour with no significant residual. Continue TPN for now. Hold electrolytes due to high phosphate etc.. Subjective Subjective Date/Time Seen: 09/20/23 06:57 Patient reports: bowel movement ( Small, still having), fever ( Temperature max last night was less than the day before. Fevers are low-grade.) and other ( mostly somnolent and arouses intermittently, no change from before.) Review of Systems Review of Systems: ROS unobtainable: Yes unobtainable due to medical condition Exam Const: General: lethargic and patient obtunded GI: Inspection: distended, incision ( Healing well) and other ( more stool out colostomy than yesterday.) GI Palp: Yes Firmness to palpation present (GI), Yes Tenderness to palpation present (GI) ( some left lower quadrant tenderness) and No Guarding due to palpation present (GI) Auscultation: normoactive bowel sounds Urinary Catheter: Urinary Catheter: patent and draining Neuro: General: patient obtunded Objective Data Vital Signs Vital Signs: Vital Signs - 24 hr 09/19/23 08:00 09/19/23 07:45 09/19/23 08:00 Temperature 37.4 C Pulse Rate 93 86 Respiratory Rate 27 H Blood Pressure 165/68 H Pulse Oximetry 98 99 98 Oxygen Delivery Mechanical Ventilation Mechanical Ventilation Fraction of Inspired Oxygen 30 30 09/19/23 08:00 09/19/23 08:00 09/19/23 10:00 Temperature 37.5 C Pulse Rate 93 87 Respiratory Rate 25 H Blood Pressure 103/66 Pulse Oximetry 97 Oxygen Delivery Fraction of Inspired Oxygen 30 09/19/23 10:10 09/19/23 10:00 09/19/23 12:00 Temperature 37.7 C H Pulse Rate 86 84 99 Respiratory Rate 24 H Blood Pressure 128/73 Pulse Oximetry 97 97 Oxygen D
[2023-09-20 07:00] LABS: Basophils Absolute Auto 0.1 K/mm3 (0.0-0.1); Basophils Percent Auto 0.5 % (0.2-1.2); Eosinophils Absolute Auto 0.6 K/mm3 (0-0.3); Eosinophils Percent Auto 4.4 % (0-4.4); Hematocrit 29.4 % (42.0-52.0); Immature Granulocyte Absolute 0.43 K/mm3 (0.00-0.031); Immature Granulocyte Percent A 3.1 % (0-0.5); Lymphocytes Absolute Auto 2.12 K/mm3 (0.9-3.2); Lymphocytes Percent Auto 15.2 % (18.3-44.2); Mean Corpuscular HGB Conc 30.6 g/dl (32-36); Mean Corpuscular Hemoglobin 29.8 pg (26-34); Mean Corpuscular Volume 97.4 fl (80-100); Mean Platelet Volume 10.9 fl (7.4-10.4); Monocytes Absolute Auto 0.8 K/mm3 (0.1-0.6); Monocytes Percent Auto 5.7 % (2.6-8.5); Neutrophils Absolute Auto 9.9 K/mm3 (1.3-6.7); Neutrophils Percent Auto 71.1 % (45.5-73.1); Platelet Count Result 374 k/mm3 (150-375); Red Blood Count 3.02 M/mm3 (4.6-6.20); Red Cell Distribution Width 15.9 % (11.5-14.5); White Blood Count 13.9 K/mm3 (4.5-10.0)
[2023-09-20 07:22] LABS: Alanine Aminotransferase 23 U/L (6-50); Albumin Level 3.3 g/dL (3.5-5.1); Alkaline Phosphatase 153 U/L (38-126); Anion Gap 12 mmol/L (8-16); Aspartate Amino Transferase 23 U/L (17-59); Bilirubin,Total 0.7 mg/dL (0.2-1.3); Blood Urea Nitrogen 115 mg/dL (9-20); Calcium 8.5 mg/dL (8.4-10.2); Carbon Dioxide 16 mmol/L (22-30); Chloride 111 mmol/L (98-107); Estimated CRCL calculation 19 ml/min; Estimated Glomerular Filt Rate 17; Glucose 149 mg/dL (65-110); Potassium 4.7 mmol/L (3.4-5.0); Sodium 139 mmol/L (137-145); Triglycerides 108 mg/dL (<150)
[2023-09-20 07:29] LABS: CRP 13.1 mg/dL (<1.0)
--- NOTE | 2023-09-20 08:38 | P.PNINT_ITS ---
Progress Note: A&P Assessment and Plan (1) Acute respiratory failure: Qualifiers: Respiratory failure complication: hypoxia and hypercapnia Qualified Code(s): J96.01 - Acute respiratory failure with hypoxia; J96.02 - Acute respiratory failure with hypercapnia Code(s): J96.00 - Acute respiratory failure, unspecified whether with hypoxia or hypercapnia Status: Acute Assessment and Plan: Acute hypoxic and hypercarbic respiratory failure. Failed multiple days off weaning trials -08/30: Tracheostomy placed 09/09 patient appears to have developed a leak in his tracheostomy cuff. NEW TRACHEOSTOMY was inserted by ENT on 09/09 09/10: Tolerated pressure support ventilation 14/8 all day, was placed on CMV mode overnight 09/11: Placed on pressure support ventilation 14/8 and tolerating for now will switch to CMV mode overnight 09/14: Patient did not tolerate pressure support ventilation as he was breathing only 8-9 times a minute, was placed on ASV mode and tolerated all day long. Placed on CMV overnight 09/15 patient tolerated pressure support ventilation 10/5 all day, was placed on CMV over 09/16: Total PSV 8/5 all day and through the night -will continue PSV 8/5 today too, patient gets tired, tachypneic, tachycardic will put him back on CMV mode 09/18: Patient was placed on CMV mode overnight after he got tired and was tachypneic on pressure support ventilation 8/5. Will give a break today -will place patient on pressure support ventilation today (2) Sepsis: Qualifiers: Sepsis type: sepsis due to unspecified organism Sepsis acute organ dysfunction status: with acute organ dysfunction Severe sepsis acute organ dysfunction type: acute renal failure Acute renal failure type: unspecified Severe sepsis shock status: without septic shock Qualified Code(s): A41.9 - Sepsis, unspecified organism; R65.20 - Severe sepsis without septic shock; N17.9 - Acute kidney failure, unspecified Code(s): A41.9 - Sepsis, unspecified organism Status: Acute Assessment and Plan: Secondary to peritonitis. Patient also appears to have consolidation of the lower lobes on the CT done which could be aspiration versus atelectasis 08/06: Repeat CT scan of abdomen and pelvis showed gallbladder distention and also fluid collection likely exudative 08/06 patient underwent cholecystostomy tube placement and drainage of peritoneal abscess-cultures have been sent 08/06: IR placed drain in abscess and right and gallbladder which are in place Gallbladder drain culture grew Enterococcus Abscess drain culture grew prevotella Patient continues to have elevated WBC count and low-grade fevers 08/09 CT scan shows multiple peritoneal fluid collections. Although patient has drain in place, may not provide adequate source control due to multiple fluid locations. Recommend re-evaluation for abdominal washout due to persistent elevated WBC low-grade fevers. 08/10 repeat blood cultures sent 08/11 fungal blood culture were sent and patient was started on empiric micafungin 08/[address] of abdomen showed multiple intraperitoneal abscesses and worsening mass in right inguinal canal and right scrotum suggestive of infected hematoma 08/14 multiple (5) drains for placed in abdomen. Cultures growing Haemophilus parainfluenza 08/[address] scan: 1. Multiple abdominal abscesses with interval improvement status post percutaneous drainage placement.2. Small pleural effusions.3. Bibasilar airspace opacities, consistent with atelectasis versus pneumonia.4. Stable mass involving the right inguinal canal, probable infected hematoma. 08/16 repeat blood cultur
[2023-09-20] MEDS: ENOXAPARIN 30 MG/0.3 ML SYRINGE SUB-Q (09:00)
[2023-09-20] MEDS: SODIUM BICARBONATE TAB 650 MG TABLET FEED TUBE (09:00)
[2023-09-20] MEDS: ASPIRIN 81 MG CHEWABLE TABLET 162 MG PO (09:00)
[2023-09-20] MEDS: PANTOPRAZOLE SODIUM IV 40 MG VIAL IV PUSH ×2 (09:00→21:38)
--- NOTE | 2023-09-20 09:15 | P.PNNP_ITS ---
Progress Note: A&P Assessment and Plan (1) MOISÉS (acute kidney injury): Code(s): N17.9 - Acute kidney failure, unspecified Status: Acute Assessment and Plan: * multiple episodes noted since admission * multifactorial issues present: * prerenal factors * relative hypotension (sometimes as low as 80s systolic) * ongoing use of ARB (losartan) * IV ibuprofen use * contrast exposure (CT scan on 08/04/23) * recurrent infection/sepsis (suspect major component) * evaluation during this hospital stay: * renal ultrasound okay * urine electrolytes prerenal * urine eosinophils negative * CPK mildly elevated (but not likely to affect kidney function) * still with reasonable urine output (without use of diuretics) * metabolic acidosis noted - on sodium bicarbonate per tube * no absolute need for MICA INSPECTOR/dialysis at this time * continue to follow repeat labs and UOP (2) Sepsis: Qualifiers: Acute renal failure type: unspecified Sepsis acute organ dysfunction status: with acute organ dysfunction Sepsis type: sepsis due to unspecified organism Severe sepsis acute organ dysfunction type: acute renal failure Severe sepsis shock status: without septic shock Qualified Code(s): A41.9 - Sepsis, unspecified organism; R65.20 - Severe sepsis without septic shock; N17.9 - Acute kidney failure, unspecified Code(s): A41.9 - Sepsis, unspecified organism Status: Acute Assessment and Plan: * remains hemodynamically stable * off all vasopressor therapy * multiple issues/etiologies: * recurrent abdominal abscesses as noted by imaging to date * peritonitis (see recent ascites fluid cultures) * abdominal drains in place * on antibiotics (3) Acute respiratory failure: Qualifiers: Respiratory failure complication: hypoxia and hypercapnia Qualified Code(s): J96.01 - Acute respiratory failure with hypoxia; J96.02 - Acute respiratory failure with hypercapnia Code(s): J96.00 - Acute respiratory failure, unspecified whether with hypoxia or hypercapnia Status: Acute Assessment and Plan: * s/p tracheostomy for prolonged ventilator weaning * complicated by weakness and severe deconditioning * continue supportive therapy (4) Pelvic abscess in male: Code(s): K65.1 - Peritoneal abscess Status: Acute Assessment and Plan: * as noted by recent CT imaging * s/p drainage ctheter placement by IR * on antibiotics * Surgery managing (5) Decubitus ulcer: Code(s): L89.90 - Pressure ulcer of unspecified site, unspecified stage Status: Acute Assessment and Plan: * s/p debridement and diverting colostomy * local wound care * Surgery following (6) Anemia: Qualifiers: Anemia type: other cause Other causes of anemia: chronic disease, other Qualified Code(s): D63.8 - Anemia in other chronic diseases classified elsewhere Code(s): D64.9 - Anemia, unspecified Status: Acute Assessment and Plan: * due to operative interventions, acute illness and MOSIÉS * getting Epogen 3 times a week * follow trend of H/H Discussed case with Dr. Whitfield. Will continue to follow. Subjective Date/time seen: 09/20/23 09:15 Interval history: Follow-up for acute kidney injury/acute renal failure. Chart reviewed since last seen -- assuming care from Dr. Cuellar; remains on mechanical ventilation via tracheostomy; following simple commands and nods head to yes/no questions; good urine output without the need for diur
--- NOTE | 2023-09-20 09:15 | PM.PNNEP ---
Progress Note: A&P Assessment and Plan (1) MOISÉS (acute kidney injury): Code(s): N17.9 - Acute kidney failure, unspecified Status: Acute Assessment and Plan: multiple episodes noted since admission multifactorial issues present: prerenal factors relative hypotension (sometimes as low as 80s systolic) ongoing use of ARB (losartan) IV ibuprofen use contrast exposure (CT scan on 08/04/23) recurrent infection/sepsis (suspect major component) evaluation during this hospital stay: renal ultrasound okay urine electrolytes prerenal urine eosinophils negative CPK mildly elevated (but not likely to affect kidney function) still with reasonable urine output (without use of diuretics) metabolic acidosis noted - on sodium bicarbonate per tube no absolute need for HAT BINDER/dialysis at this time continue to follow repeat labs and UOP (2) Sepsis: Qualifiers: Acute renal failure type: unspecified Sepsis acute organ dysfunction status: with acute organ dysfunction Sepsis type: sepsis due to unspecified organism Severe sepsis acute organ dysfunction type: acute renal failure Severe sepsis shock status: without septic shock Qualified Code(s): A41.9 - Sepsis, unspecified organism; R65.20 - Severe sepsis without septic shock; N17.9 - Acute kidney failure, unspecified Code(s): A41.9 - Sepsis, unspecified organism Status: Acute Assessment and Plan: remains hemodynamically stable off all vasopressor therapy multiple issues/etiologies: recurrent abdominal abscesses as noted by imaging to date peritonitis (see recent ascites fluid cultures) abdominal drains in place on antibiotics (3) Acute respiratory failure: Qualifiers: Respiratory failure complication: hypoxia and hypercapnia Qualified Code(s): J96.01 - Acute respiratory failure with hypoxia; J96.02 - Acute respiratory failure with hypercapnia Code(s): J96.00 - Acute respiratory failure, unspecified whether with hypoxia or hypercapnia Status: Acute Assessment and Plan: s/p tracheostomy for prolonged ventilator weaning complicated by weakness and severe deconditioning continue supportive therapy (4) Pelvic abscess in male: Code(s): K65.1 - Peritoneal abscess Status: Acute Assessment and Plan: as noted by recent CT imaging s/p drainage ctheter placement by IR on antibiotics Surgery managing (5) Decubitus ulcer: Code(s): L89.90 - Pressure ulcer of unspecified site, unspecified stage Status: Acute Assessment and Plan: s/p debridement and diverting colostomy local wound care Surgery following (6) Anemia: Qualifiers: Anemia type: other cause Other causes of anemia: chronic disease, other Qualified Code(s): D63.8 - Anemia in other chronic diseases classified elsewhere Code(s): D64.9 - Anemia, unspecified Status: Acute Assessment and Plan: due to operative interventions, acute illness and MOISÉS getting Epogen 3 times a week follow trend of H/H Discussed case with Dr. Whitfield. Will continue to follow. Subjective Date/time seen: 09/20/23 09:15 Interval history: Follow-up for acute kidney injury/acute renal failure. Chart reviewed since last seen -- assuming care from Dr. Cuellar; remains on mechanical ventilation via tracheostomy; following simple commands and nods head to yes/no questions; good urine output without the need for diuretics although BUN and creatinine remains elevated; remains hemodynamically stable but with low grade fevers in the last 24 hours. Exam Narrative: General: elderly but WD/WN male in NAD Heart: IRRR, normal S1 and S2; no rub Lungs: coarse breath sounds bilaterally Abdomen: diminished bowel sounds present; colostomy present Extremities: no cyanosis or clubbing; trace - 1+ edema Skin: warm and dry Objective Data Vital Signs Vital Sig
[2023-09-20] MEDS: COLLAGENASE OINT 30 GM TUBE 1 APPLIC TOPICAL (09:19)
--- NOTE | 2023-09-20 10:31 | PCNFU ---
Nutrition Follow-Up Complete: Swallowing Diffuculties as related to mentation/risk of aspiration as evidenced by NPO. Meet estimated nutritional needs - Goal is being met with TPN. Tube feeds at [facility] Goal: Pt current nutrition is TPN Clinmix 5/15 plain with lipids @80 ml/h: 1863 kcal, 96 g protien, 2170 total volume. Tube feeds: Vital 1.2 @ 20 ml/h: 528 kcal, 33 g protein, 357 ml total free water. Totals: 2364 kcal, 129 g protein, 2527 ml total volume . Nutrition recommendation: 1. If increasing Vital 1.2 to 40 ml/ (provides 1056 kcal, 66 g protein, 713 ml free water) TPN should be decreased to 30 ml/h (1011 kcal, 36 g protein, 970 total volume) to avoid overfeeding complications. Total intakes with Vital 1.2 @ 40 ml/h + TPN Clinmix 5/15 @ 30 ml/h: 2067 kcal, 102 g protein, 1682 ml total) 2. If keeping Vital 1.2 @ 20 ml/h, recommend decreasing TPN to 60 ml/h: 1522 kcal, 72 g protein, 1690 total volume. +Vital 1.2 @ 20: 2050 kcal, 105 g protein, 2047 ml total volume. Last recorded weight is 121.5 kg. Bowel Motility: 60 ml stool from ostomy. Labs Reviewed: Hgb 9.0, Hct 29.4, Alb 3.3, BUN 115, Cre 3.5, Glu 149 Meds Noted: No pressors, No sedation. Zosyn, protonix Skin: 2 drains Additional Notes: Tolerating tube feeding at [facility] with no residuals. In view of low ostomy output, may want to delay increasing tube feeding until ostomy output increases. May want to decrease volume of TPN to prevent overfeeding complications. Will montior weight, labs, skin, meds, TPN every Saturday and Saturday.
[2023-09-20 11:42] LABS: Glucose Point of Care 157 mg/dl (65-105)
--- NOTE | 2023-09-20 14:28 | PCPTNOTE ---
Attempted PT evaluation, pt with nursing. Will follow.
[2023-09-20] MEDS: AMINO ACIDS 5%/DEXTROSE 15% 2,000 ML with MULTIVITAMINS-12 INJ VIAL 1 2.5 ML, MULTIVITA... 80 ML IV CONT (15:42)
[2023-09-20] MEDS: FAT EMULSIONS IV 20% 250 ML 20.8 ML IVPB (15:59)
[2023-09-20 17:48] LABS: Glucose Point of Care 143 mg/dl (65-105)
[2023-09-21] VITALS (19 sets, daily range): BP systolic 109–161; BP diastolic 59–90; PULSE 83–106; RESP 18–31; TEMP 37.2–37.7; O2SAT 94–100
[2023-09-21 00:24] LABS: Glucose Point of Care 107 mg/dl (65-105)
[2023-09-21 05:44] LABS: Glucose Point of Care 155 mg/dl (65-105)
[2023-09-21 06:02] LABS: Basophils Absolute Auto 0.1 K/mm3 (0.0-0.1); Basophils Percent Auto 0.5 % (0.2-1.2); Eosinophils Absolute Auto 0.8 K/mm3 (0-0.3); Eosinophils Percent Auto 6.4 % (0-4.4); Hematocrit 29.2 % (42.0-52.0); Hemoglobin 8.9 g/dL (14.0-18.0); Immature Granulocyte Absolute 0.25 K/mm3 (0.00-0.031); Lymphocytes Absolute Auto 1.93 K/mm3 (0.9-3.2); Lymphocytes Percent Auto 15.4 % (18.3-44.2); Mean Corpuscular HGB Conc 30.5 g/dl (32-36); Mean Corpuscular Hemoglobin 29.9 pg (26-34); Mean Platelet Volume 10.9 fl (7.4-10.4); Monocytes Absolute Auto 0.8 K/mm3 (0.1-0.6); Monocytes Percent Auto 6.6 % (2.6-8.5); Neutrophils Absolute Auto 8.7 K/mm3 (1.3-6.7); Neutrophils Percent Auto 69.1 % (45.5-73.1); Platelet Count Result 344 k/mm3 (150-375); Red Blood Count 2.98 M/mm3 (4.6-6.20); White Blood Count 12.5 K/mm3 (4.5-10.0)
[2023-09-21] MEDS: metroNIDAZOLE 500 MG/ISO 100ML 500 MG/100 ML BAG 100 MG IVPB (06:06)
[2023-09-21] MEDS: LEVOTHYROXINE SODIUM INJ 100 MCG/5 ML VIAL 50 MCG IV PUSH (06:07)
[2023-09-21] MEDS: CENTRAL LINE FLUSH 10 ML IV PUSH ×3 (06:08→20:56)
[2023-09-21 06:12] LABS: Alveolar/Arterial O2 Gradient < 0.0 mmHg; Base Excess ABG -10.6 mEq/l (+/-2.0); Carboxyhemoglobin 0.3 % THb (0-2.0); HCO3 ABG 14.7 mEq/l (22.0-26.0); Methemoglobin ABG 0.4 %THb (0-1.5); Oxygen Content ABG 18.7 %vol (16.0-22.0); Oxygen Saturation ABG 98.4 % (95.0-100.0); Oxyhemoglobin 97.2 % THb (90.0-100.0); PCO2 ABG 31.4 mmHg (35.0-45.0); PO2 ABG 134.6 mmHg (80.0-100.0); PO2 FiO2 Ratio Arterial Blood 6.73 %; Reduced Hemoglobin 2.1 %THb (0-5.0); Total Hemoglobin 13.5 g/dL (12.0-18.0)
[2023-09-21 06:14] LABS: Fractional Inspired Oxygen 30 %
[2023-09-21 06:15] LABS: Alanine Aminotransferase 21 U/L (6-50); Albumin Level 3.3 g/dL (3.5-5.1); Alkaline Phosphatase 156 U/L (38-126); Anion Gap 11 mmol/L (8-16); Aspartate Amino Transferase 23 U/L (17-59); Bilirubin,Total 0.7 mg/dL (0.2-1.3); Blood Urea Nitrogen 119 mg/dL (9-20); Calcium 8.4 mg/dL (8.4-10.2); Carbon Dioxide 15 mmol/L (22-30); Chloride 112 mmol/L (98-107); Estimated CRCL calculation 20 ml/min; Estimated Glomerular Filt Rate 17; Glucose 131 mg/dL (65-110); INR 1.4; Magnesium 2.6 mg/dL (1.6-2.3); Partial Thromboplastin Time 26.7 SECONDS (22.3-36.8); Phosphorus 5.6 mg/dL (2.5-4.5); Potassium 4.8 mmol/L (3.4-5.0); Prothrombin Time 18.3 Seconds (11.1-14.7); Sodium 138 mmol/L (137-145); Triglycerides 143 mg/dL (<150)
[2023-09-21 06:15] LABS: Device VENTILATOR; Modified Allen's Test Pass; Site Drawn LEFT RADIAL
[2023-09-21 06:17] LABS: Arterial Blood Gas PEEP 5 cmH2O; Arterial Blood Gas Tidal Volume 420 ml; Arterial Blood Gas Vent Mode CMV; Arterial Blood Gas Ventilator rate 15 /MIN; pH ABG 7.289 (7.350-7.450)
[2023-09-21] MEDS: SODIUM BICARBONATE 8.4% 50 MEQ/50 ML SYRINGE IV PUSH (08:16)
[2023-09-21] MEDS: PANTOPRAZOLE SODIUM IV 40 MG VIAL IV PUSH ×2 (08:20→20:49)
[2023-09-21] MEDS: SODIUM BICARBONATE TAB 650 MG TABLET FEED TUBE ×2 (08:21→17:11)
[2023-09-21] MEDS: ASPIRIN 81 MG CHEWABLE TABLET 162 MG PO (08:21)
[2023-09-21] MEDS: SCOPOLAMINE 1 MG PATCH 1 PATCH TRANSDERM (08:22)
[2023-09-21] MEDS: ENOXAPARIN 30 MG/0.3 ML SYRINGE SUB-Q (08:22)
[2023-09-21] MEDS: COLLAGENASE OINT 30 GM TUBE 1 APPLIC TOPICAL (08:26)
[2023-09-21] MEDS: EPOETIN ALFA-EPBX 10,000 UNITS/ML VIAL 10000 UNITS SUB-Q (08:26)
--- NOTE | 2023-09-21 10:02 | P.PNNP_ITS ---
Progress Note: A&P Assessment and Plan (1) MOISÉS (acute kidney injury): Code(s): N17.9 - Acute kidney failure, unspecified Status: Acute Assessment and Plan: * multiple episodes noted since admission * multifactorial issues present: * prerenal factors * previous relative hypotension (sometimes as low as 80s systolic) * previous ongoing use of ARB (losartan) * previous IV ibuprofen use * contrast exposure (CT scan on 08/04/23) * recurrent infection/sepsis (suspect major component) * evaluation during this hospital stay: * renal ultrasound okay * urine electrolytes prerenal * urine eosinophils negative * CPK mildly elevated (but not likely to affect kidney function) * still with reasonable urine output (without use of diuretics) * metabolic acidosis noted - on sodium bicarbonate per tube but may need to titrate dose * no absolute need for TIN RECOVERY WORKER/dialysis at this time * if BUN continues to worsen, dialysis would be a consideration if there is a concern for uremia... * continue to follow repeat labs and UOP (2) Sepsis: Qualifiers: Acute renal failure type: unspecified Sepsis acute organ dysfunction status: with acute organ dysfunction Sepsis type: sepsis due to unspecified organism Severe sepsis acute organ dysfunction type: acute renal failure Severe sepsis shock status: without septic shock Qualified Code(s): A41.9 - Sepsis, unspecified organism; R65.20 - Severe sepsis without septic shock; N17.9 - Acute kidney failure, unspecified Code(s): A41.9 - Sepsis, unspecified organism Status: Acute Assessment and Plan: * remains hemodynamically stable * off all vasopressor therapy * multiple issues/etiologies: * recurrent abdominal abscesses as noted by imaging to date * peritonitis (see recent ascites fluid cultures) * abdominal drains in place * on antibiotics (3) Acute respiratory failure: Qualifiers: Respiratory failure complication: hypoxia and hypercapnia Qualified Code(s): J96.01 - Acute respiratory failure with hypoxia; J96.02 - Acute respiratory failure with hypercapnia Code(s): J96.00 - Acute respiratory failure, unspecified whether with hypoxia or hypercapnia Status: Acute Assessment and Plan: * s/p tracheostomy for prolonged ventilator weaning * complicated by weakness and severe deconditioning * continue supportive therapy (4) Pelvic abscess in male: Code(s): K65.1 - Peritoneal abscess Status: Acute Assessment and Plan: * as noted by recent CT imaging * s/p drainage catheter placement by IR * on antibiotics * Surgery managing (5) Decubitus ulcer: Code(s): L89.90 - Pressure ulcer of unspecified site, unspecified stage Status: Acute Assessment and Plan: * s/p debridement and diverting colostomy * local wound care * Surgery following (6) Anemia: Qualifiers: Anemia type: other cause Other causes of anemia: chronic disease, other Qualified Code(s): D63.8 - Anemia in other chronic diseases classified elsewhere Code(s): D64.9 - Anemia, unspecified Status: Acute Assessment and Plan: * due to operative interventions, acute illness and MOISÉS * getting Epogen 3 times a week * follow trend of H/H Will continue to follow. Subjective Date/time seen: 09/21/23 10:02 Interval history: Follow-up for acute kidney injury/acute renal failure. Remains hemodynamically stable with good urine output although BUN and creatinine remain e
--- NOTE | 2023-09-21 10:02 | PM.PNNEP ---
Progress Note: A&P Assessment and Plan (1) MOISÉS (acute kidney injury): Code(s): N17.9 - Acute kidney failure, unspecified Status: Acute Assessment and Plan: multiple episodes noted since admission multifactorial issues present: prerenal factors previous relative hypotension (sometimes as low as 80s systolic) previous ongoing use of ARB (losartan) previous IV ibuprofen use contrast exposure (CT scan on 08/04/23) recurrent infection/sepsis (suspect major component) evaluation during this hospital stay: renal ultrasound okay urine electrolytes prerenal urine eosinophils negative CPK mildly elevated (but not likely to affect kidney function) still with reasonable urine output (without use of diuretics) metabolic acidosis noted - on sodium bicarbonate per tube but may need to titrate dose no absolute need for POOL MANAGER/dialysis at this time if BUN continues to worsen, dialysis would be a consideration if there is a concern for uremia... continue to follow repeat labs and UOP (2) Sepsis: Qualifiers: Acute renal failure type: unspecified Sepsis acute organ dysfunction status: with acute organ dysfunction Sepsis type: sepsis due to unspecified organism Severe sepsis acute organ dysfunction type: acute renal failure Severe sepsis shock status: without septic shock Qualified Code(s): A41.9 - Sepsis, unspecified organism; R65.20 - Severe sepsis without septic shock; N17.9 - Acute kidney failure, unspecified Code(s): A41.9 - Sepsis, unspecified organism Status: Acute Assessment and Plan: remains hemodynamically stable off all vasopressor therapy multiple issues/etiologies: recurrent abdominal abscesses as noted by imaging to date peritonitis (see recent ascites fluid cultures) abdominal drains in place on antibiotics (3) Acute respiratory failure: Qualifiers: Respiratory failure complication: hypoxia and hypercapnia Qualified Code(s): J96.01 - Acute respiratory failure with hypoxia; J96.02 - Acute respiratory failure with hypercapnia Code(s): J96.00 - Acute respiratory failure, unspecified whether with hypoxia or hypercapnia Status: Acute Assessment and Plan: s/p tracheostomy for prolonged ventilator weaning complicated by weakness and severe deconditioning continue supportive therapy (4) Pelvic abscess in male: Code(s): K65.1 - Peritoneal abscess Status: Acute Assessment and Plan: as noted by recent CT imaging s/p drainage catheter placement by IR on antibiotics Surgery managing (5) Decubitus ulcer: Code(s): L89.90 - Pressure ulcer of unspecified site, unspecified stage Status: Acute Assessment and Plan: s/p debridement and diverting colostomy local wound care Surgery following (6) Anemia: Qualifiers: Anemia type: other cause Other causes of anemia: chronic disease, other Qualified Code(s): D63.8 - Anemia in other chronic diseases classified elsewhere Code(s): D64.9 - Anemia, unspecified Status: Acute Assessment and Plan: due to operative interventions, acute illness and MOISÉS getting Epogen 3 times a week follow trend of H/H Will continue to follow. Subjective Date/time seen: 09/21/23 10:02 Interval history: Follow-up for acute kidney injury/acute renal failure. Remains hemodynamically stable with good urine output although BUN and creatinine remain elevated; respiratory status appears stable as well -- on mechanical ventilation via tracheostomy; tolerating both tube feeds and TPN; no other significant changes noted; daughter at bedside and we discussed the situation. Exam Narrative: General: elderly but WD/WN male in NAD Heart: IRRR, normal S1 and S2; no rub Lungs: coarse breath sounds bilaterally Abdomen: diminished bowel sounds present; colostomy present Extremities: no cyanosis or clubbing;
--- NOTE | 2023-09-21 10:52 | PM.PNGS ---
Progress Note: A&P Assessment and Plan (1) S/P partial colectomy: Code(s): Z90.49 - Acquired absence of other specified parts of digestive tract Status: Acute Assessment and Plan: will increase TF to 40/hr, cont TPN, cont abx and drains Subjective Subjective Date/Time Seen: 09/21/23 10:52 Interval history: no acute issues, doc TF at 30 Review of Systems Review of Systems: ROS unobtainable: Yes unobtainable due to medical condition Exam Const: General: cooperative, no acute distress and ill appearing Resp: Auscultation: diminished lung sounds Cardio: Rate: regular rate Rhythm: regular rhythm GI: Inspection: normal to inspection, distended and incision GI Palp: Yes abdominal tenderness, Yes Soft to palpation, Yes Tenderness to palpation present (GI), No Guarding due to palpation present (GI) and No Rigid due to palpation Other: drains c serous output, ostomy c good fxn Objective Data Vital Signs Vital Signs: Vital Signs - 24 hr 09/20/23 11:42 09/20/23 12:00 09/20/23 12:00 Temperature 37.8 C H Pulse Rate 95 98 Respiratory Rate 22 H 22 H Blood Pressure 128/70 Pulse Oximetry 98 98 Oxygen Delivery Mechanical Ventilation Fraction of Inspired Oxygen 30 09/20/23 12:00 09/20/23 13:14 09/20/23 13:47 Temperature Pulse Rate 96 109 H Respiratory Rate 22 H Blood Pressure 111/69 Pulse Oximetry 99 98 Oxygen Delivery Mechanical Ventilation Fraction of Inspired Oxygen 30 30 09/20/23 15:16 09/20/23 15:42 09/20/23 14:00 Temperature 37.4 C Pulse Rate 92 88 88 Respiratory Rate 22 H Blood Pressure 134/74 Pulse Oximetry 98 97 Oxygen Delivery Mechanical Ventilation Fraction of Inspired Oxygen 30 09/20/23 16:00 09/20/23 16:00 09/20/23 16:00 Temperature Pulse Rate 88 Respiratory Rate 22 H Blood Pressure Pulse Oximetry 97 Oxygen Delivery Mechanical Ventilation Fraction of Inspired Oxygen 30 30 09/20/23 17:48 09/20/23 18:07 09/20/23 20:40 Temperature Pulse Rate 99 105 H 109 H Respiratory Rate 24 H Blood Pressure 134/86 Pulse Oximetry 97 98 98 Oxygen Delivery Mechanical Ventilation Mechanical Ventilation Fraction of Inspired Oxygen 30 30 09/20/23 20:00 09/20/23 20:00 09/20/23 20:00 Temperature 37.3 C Pulse Rate 85 99 Respiratory Rate 22 H Blood Pressure 134/69 Pulse Oximetry 97 Oxygen Delivery Fraction of Inspired Oxygen 30 09/20/23 20:00 09/20/23 22:00 09/20/23 22:00 Temperature 37.3 C Pulse Rate 94 94 Respiratory Rate 22 H Blood Pressure 131/81 Pulse Oximetry 97 Oxygen Delivery Mechanical Ventilation Fraction of Inspired Oxygen 30 09/21/23 00:00 09/21/23 00:00 09/21/23 00:00 Temperature 37.3 C Pulse Rate 100 106 H Respiratory Rate 18 Blood Pressure 138/90 Pulse Oximetry 97 Oxygen Delivery Fraction of Inspired Oxygen 30 09/20/23 23:25 09/21/23 02:00 09/21/23 02:00 Temperature 37.4 C Pulse Rate 94 98 98 Respiratory Rate 21 H Blood Pressure 161/81 H Pulse Oximetry 96 97 Oxygen Delivery Mechanical Ventilation Fraction of Inspired Oxygen 30 09/21/23 00:00 09/21/23 03:54 09/21/23 04:00 Temperature 37.4 C Pulse Rate 92 97 Respiratory Rate 22 H Blood Pressure 151/82 H Pulse Oximetry 98 Oxygen Delivery Mechanical Ventilation Fraction of Inspired Oxygen 30 09/21/23 04:00 09/21/23 04:00 09/21/23 04:00 Temperature 37.4 C Pulse Rate 97 Respiratory Rate 20 Blood Pressure 148/76 H Pulse Oximetry 99 Oxygen Delivery Mechanical Ventilation Fraction of Inspired Oxygen 30 30 09/21/23 06:00 09/21/23 06:00 09/21/23 02:50 Temperature 37.4 C Pulse Rate 94 94 89 Respiratory Rate 19 Blood Pressure 141/62 H Pulse Oximetry 100 100 Oxygen Delivery Mechanical Ventilation Fraction of Inspired Oxygen 30 09/21/23 06:00 09/21/23 07:30 09/21/23 08:00 Temperature 37.2 C Pulse Rate 9
--- NOTE | 2023-09-21 10:57 | WPDINTPN ---
Progress Note: A&P Assessment and Plan (1) Acute respiratory failure: Qualifiers: Respiratory failure complication: hypoxia and hypercapnia Qualified Code(s): J96.01 - Acute respiratory failure with hypoxia; J96.02 - Acute respiratory failure with hypercapnia Code(s): J96.00 - Acute respiratory failure, unspecified whether with hypoxia or hypercapnia Status: Acute Assessment and Plan: Acute hypoxic and hypercarbic respiratory failure. Failed multiple days off weaning trials -08/30: Tracheostomy placed 09/09 patient appears to have developed a leak in his tracheostomy cuff. NEW TRACHEOSTOMY was inserted by ENT on 09/09 09/10: Tolerated pressure support ventilation 14/8 all day, was placed on CMV mode overnight 09/11: Placed on pressure support ventilation 14/8 and tolerating for now will switch to CMV mode overnight 09/14: Patient did not tolerate pressure support ventilation as he was breathing only 8-9 times a minute, was placed on ASV mode and tolerated all day long. Placed on CMV overnight 09/15 patient tolerated pressure support ventilation 10/5 all day, was placed on CMV over 09/16: Total PSV 8/5 all day and through the night -will continue PSV 8/5 today too, patient gets tired, tachypneic, tachycardic will put him back on CMV mode 09/18: Patient was placed on CMV mode overnight after he got tired and was tachypneic on pressure support ventilation 8/5. Will give a break today -09/20: Did not tolerate pressure support ventilation or ASV -will try again today (2) Sepsis: Qualifiers: Sepsis type: sepsis due to unspecified organism Sepsis acute organ dysfunction status: with acute organ dysfunction Severe sepsis acute organ dysfunction type: acute renal failure Acute renal failure type: unspecified Severe sepsis shock status: without septic shock Qualified Code(s): A41.9 - Sepsis, unspecified organism; R65.20 - Severe sepsis without septic shock; N17.9 - Acute kidney failure, unspecified Code(s): A41.9 - Sepsis, unspecified organism Status: Acute Assessment and Plan: Secondary to peritonitis. Patient also appears to have consolidation of the lower lobes on the CT done which could be aspiration versus atelectasis 08/06: Repeat CT scan of abdomen and pelvis showed gallbladder distention and also fluid collection likely exudative 08/06 patient underwent cholecystostomy tube placement and drainage of peritoneal abscess-cultures have been sent 08/06: IR placed drain in abscess and right and gallbladder which are in place Gallbladder drain culture grew Enterococcus Abscess drain culture grew prevotella Patient continues to have elevated WBC count and low-grade fevers 08/09 CT scan shows multiple peritoneal fluid collections. Although patient has drain in place, may not provide adequate source control due to multiple fluid locations. Recommend re-evaluation for abdominal washout due to persistent elevated WBC low-grade fevers. 08/10 repeat blood cultures sent 08/11 fungal blood culture were sent and patient was started on empiric micafungin 08/[address] of abdomen showed multiple intraperitoneal abscesses and worsening mass in right inguinal canal and right scrotum suggestive of infected hematoma 08/14 multiple (5) drains for placed in abdomen. Cultures growing Haemophilus parainfluenza 08/[address] scan: 1. Multiple abdominal abscesses with interval improvement status post percutaneous drainage placement.2. Small pleural effusions.3. Bibasilar airspace opacities, consistent with atelectasis versus pneumonia.4. Stable mass involving the right inguinal canal, probable infected hematoma. 08/16 repeat blood cultures sent are negative till now, Weathers was changed, UA suggestive of UTI 08/17 patient remains febrile but WBC is down. Currently on broad-spectrum antibiotics and antifungals Treatment with Zyvox, meropenem and micafungin at this time. 08/17 lower extremity Dopplers neg
--- NOTE | 2023-09-21 11:17 | PCFNICU ---
ICU Rounding Note: Pt current nutrition is Vital AF 1.2 at 40 ml/hr and TPN at 40 ml/hr. Last recorded weight is 118 kg Bowel Motility:colostomy Labs Reviewed:Glu 131, Cr 3.4,GFR 17, BUN 119, Alb 3.3 Meds Noted:Protonix, Synthroid,Lovenox, Flagyl, Clinimix 5/15 at 40 ml/hr with 250 ml of 20% Lipid Emulsion. Skin: WNL Additional Notes: Patient current with Trach and PEG. Tube feedings have advanced to 40 ml/hr of Vital AF 1.2 providing 1056 kcals/66 gms protein/714 ml water. Flush 30 ml q 4 hours. TPN 1/2 rated to 40 ml/hr providing additional 1182 kcals/48 gms protein/960 24 hr volume. If patient tolerates tube feedings today, recommend discontinuing TPN and increasing tube feedings as tolerated per MD orders to goal rate of 70 ml/hr (1848 kcals/116 gms protein/1249 ml water. Flush 30 ml q 4 hours. Following daily in ICU rounds. Will monitor weight, labs, skin, meds, TPN every Saturday and Saturday.
[2023-09-21 12:08] LABS: Glucose Point of Care 138 mg/dl (65-105)
[2023-09-21] MEDS: AMINO ACIDS 5%/DEXTROSE 15% 2,000 ML with MULTIVITAMINS-12 INJ VIAL 1 2.5 ML, MULTIVITA... 40 ML IV CONT (14:25)
[2023-09-21] MEDS: FAT EMULSIONS IV 20% 250 ML 20.8 ML IVPB (14:25)
[2023-09-21 18:16] LABS: Glucose Point of Care 124 mg/dl (65-105)
[2023-09-22] VITALS (21 sets, daily range): BP systolic 107–133; BP diastolic 69–93; PULSE 83–104; RESP 21–35; TEMP 36.9–37.8; O2SAT 95–100
[2023-09-22 00:31] LABS: Glucose Point of Care 125 mg/dl (65-105)
[2023-09-22 05:12] LABS: Anion Gap 12 mmol/L (8-16); Blood Urea Nitrogen 118 mg/dL (9-20); Calcium 8.4 mg/dL (8.4-10.2); Carbon Dioxide 15 mmol/L (22-30); Chloride 113 mmol/L (98-107); Estimated CRCL calculation 21 ml/min; Estimated Glomerular Filt Rate 18; Glucose 123 mg/dL (65-110); Phosphorus 4.9 mg/dL (2.5-4.5); Potassium 4.5 mmol/L (3.4-5.0); Sodium 140 mmol/L (137-145); Triglycerides 149 mg/dL (<150)
[2023-09-22] MEDS: LEVOTHYROXINE SODIUM INJ 100 MCG/5 ML VIAL 50 MCG IV PUSH (06:09)
[2023-09-22] MEDS: CENTRAL LINE FLUSH 10 ML IV PUSH ×3 (06:09→21:17)
--- NOTE | 2023-09-22 08:36 | P.PNINT_ITS ---
Progress Note: A&P Assessment and Plan (1) Acute respiratory failure: Qualifiers: Respiratory failure complication: hypoxia and hypercapnia Qualified Code(s): J96.01 - Acute respiratory failure with hypoxia; J96.02 - Acute respiratory failure with hypercapnia Code(s): J96.00 - Acute respiratory failure, unspecified whether with hypoxia or hypercapnia Status: Acute Assessment and Plan: Acute hypoxic and hypercarbic respiratory failure. Failed multiple days off weaning trials -08/30: Tracheostomy placed 09/09 patient appears to have developed a leak in his tracheostomy cuff. NEW TRACHEOSTOMY was inserted by ENT on 09/09 09/10: Tolerated pressure support ventilation 14/8 all day, was placed on CMV mode overnight 09/11: Placed on pressure support ventilation 14/8 and tolerating for now will switch to CMV mode overnight 09/14: Patient did not tolerate pressure support ventilation as he was breathing only 8-9 times a minute, was placed on ASV mode and tolerated all day long. Placed on CMV overnight 09/15 patient tolerated pressure support ventilation 10/5 all day, was placed on CMV over 09/16: Total PSV 8/5 all day and through the night -will continue PSV 8/5 today too, patient gets tired, tachypneic, tachycardic will put him back on CMV mode 09/18: Patient was placed on CMV mode overnight after he got tired and was tachypneic on pressure support ventilation 8/5. Will give a break today -09/20: Did not tolerate pressure support ventilation or ASV -09/21: Tolerated pressure support ventilation 10/5 all day long, was placed on CMV mode overnight (2) Sepsis: Qualifiers: Sepsis type: sepsis due to unspecified organism Sepsis acute organ dysfunction status: with acute organ dysfunction Severe sepsis acute organ dysfunction type: acute renal failure Acute renal failure type: unspecified Severe sepsis shock status: without septic shock Qualified Code(s): A41.9 - Sepsis, unspecified organism; R65.20 - Severe sepsis without septic shock; N17.9 - Acute kidney failure, unspecified Code(s): A41.9 - Sepsis, unspecified organism Status: Acute Assessment and Plan: Secondary to peritonitis. Patient also appears to have consolidation of the lower lobes on the CT done which could be aspiration versus atelectasis 08/06: Repeat CT scan of abdomen and pelvis showed gallbladder distention and also fluid collection likely exudative 08/06 patient underwent cholecystostomy tube placement and drainage of peritoneal abscess-cultures have been sent 08/06: IR placed drain in abscess and right and gallbladder which are in place Gallbladder drain culture grew Enterococcus Abscess drain culture grew prevotella Patient continues to have elevated WBC count and low-grade fevers 08/09 CT scan shows multiple peritoneal fluid collections. Although patient has drain in place, may not provide adequate source control due to multiple fluid locations. Recommend re-evaluation for abdominal washout due to persistent elevated WBC low-grade fevers. 08/10 repeat blood cultures sent 08/11 fungal blood culture were sent and patient was started on empiric micafungin 08/[address] of abdomen showed multiple intraperitoneal abscesses and worsening mass in right inguinal canal and right scrotum suggestive of infected hematoma 08/14 multiple (5) drains for placed in abdomen. Cultures growing Haemophilus parainfluenza 08/[address] scan: 1. Multiple abdominal abscesses with interval improvement status post percutaneous drainage placement.2. Small pleural effusions.3. Bibasilar airspace opacities, consistent with atelectasis versus pneumonia.4.
[2023-09-22] MEDS: COLLAGENASE OINT 30 GM TUBE 1 APPLIC TOPICAL (08:44)
[2023-09-22] MEDS: ASPIRIN 81 MG CHEWABLE TABLET 162 MG PO (08:44)
[2023-09-22] MEDS: PANTOPRAZOLE SODIUM IV 40 MG VIAL IV PUSH ×2 (08:44→21:16)
[2023-09-22] MEDS: ENOXAPARIN 30 MG/0.3 ML SYRINGE SUB-Q (08:44)
[2023-09-22] MEDS: SODIUM BICARBONATE TAB 650 MG TABLET FEED TUBE ×3 (08:45→21:17)
[2023-09-22 09:25] LABS: Salicylate < 1.0 mg/dL (2-20)
[2023-09-22 09:26] LABS: Lactic Acid Reflex 0.8 mmol/L (0.7-2.0)
[2023-09-22 09:27] LABS: Appearance Urine Turbid (Clear); Bacteria Urine None Seen /hpf; Bilirubin Urine Negative (Negative); Color Urine Yellow (Yellow); Glucose Urine UA Negative (Negative); Granular Casts Urine Present /lpf; Ketones Urine Negative (Negative); Leukocyte Esterase Ur Trace LEU/UL (Negative); Need Manual Microscopic Reviewed; Nitrate Urine Negative (Negative); Non Pathogenic Casts >20; Protein Urine 2+ mg/dL (Negative); RBC Urine 51-100 /hpf (0-2); Specific Grav Ur 1.013 (1.001-1.035); Squamous Epithelial Cell Urine Few /hpf (Few); Urobilinogen Urine 0.2 mg/dL (<2.0)
[2023-09-22 09:28] LABS: Hyaline Casts Urine Present /lpf
--- NOTE | 2023-09-22 09:28 | P.PNNP_ITS ---
Progress Note: A&P Assessment and Plan (1) MOISÉS (acute kidney injury): Code(s): N17.9 - Acute kidney failure, unspecified Status: Acute Assessment and Plan: * multiple episodes noted since admission * multifactorial issues present: * prerenal factors * previous relative hypotension (sometimes as low as 80s systolic) * previous ongoing use of ARB (losartan) * previous IV ibuprofen use * contrast exposure (CT scan on 08/04/23) * recurrent infection/sepsis (suspect major component) * evaluation during this hospital stay: * renal ultrasound okay * urine electrolytes prerenal * urine eosinophils negative * CPK mildly elevated (but not likely to affect kidney function) * still with reasonable urine output (without use of diuretics) * metabolic acidosis noted - on sodium bicarbonate per tube - titrate dose as needed * no absolute need for [employer]/dialysis at this time * if BUN continues to worsen, dialysis would be a consideration if there is a concern for uremia... * continue to follow repeat labs and UOP (2) Sepsis: Qualifiers: Sepsis type: sepsis due to unspecified organism Sepsis acute organ dysfunction status: with acute organ dysfunction Severe sepsis acute organ dysfunction type: acute renal failure Acute renal failure type: unspecified Severe sepsis shock status: without septic shock Qualified Code(s): A41.9 - Sepsis, unspecified organism; R65.20 - Severe sepsis without septic shock; N17.9 - Acute kidney failure, unspecified Code(s): A41.9 - Sepsis, unspecified organism Status: Acute Assessment and Plan: * remains hemodynamically stable * off all vasopressor therapy * multiple issues/etiologies: * recurrent abdominal abscesses as noted by imaging to date * peritonitis (see recent ascites fluid cultures) * abdominal drains in place * on antibiotics (3) Acute respiratory failure: Qualifiers: Respiratory failure complication: hypoxia and hypercapnia Qualified Code(s): J96.01 - Acute respiratory failure with hypoxia; J96.02 - Acute respiratory failure with hypercapnia Code(s): J96.00 - Acute respiratory failure, unspecified whether with hypoxia or hypercapnia Status: Acute Assessment and Plan: * s/p tracheostomy for prolonged ventilator weaning * complicated by weakness and severe deconditioning * continue supportive therapy (4) Pelvic abscess in male: Code(s): K65.1 - Peritoneal abscess Status: Acute Assessment and Plan: * as noted by recent CT imaging * s/p drainage catheter placement by IR * on antibiotics * Surgery managing (5) Decubitus ulcer: Code(s): L89.90 - Pressure ulcer of unspecified site, unspecified stage Status: Acute Assessment and Plan: * s/p debridement and diverting colostomy * local wound care * Surgery following (6) Anemia: Qualifiers: Anemia type: other cause Other causes of anemia: chronic disease, other Qualified Code(s): D63.8 - Anemia in other chronic diseases classified elsewhere Code(s): D64.9 - Anemia, unspecified Status: Acute Assessment and Plan: * due to operative interventions, acute illness and MOISÉS * getting Epogen 3 times a week * follow trend of H/H Will continue to follow. Subjective Date/time seen: 09/22/23 09:28 Interval history: Follow-up for acute kidney injury/acute renal failure. Remains on mechanical ventilation via tracheostomy; did tolerate PSV yesterday till late in
--- NOTE | 2023-09-22 09:28 | PM.PNNEP ---
Progress Note: A&P Assessment and Plan (1) MOISÉS (acute kidney injury): Code(s): N17.9 - Acute kidney failure, unspecified Status: Acute Assessment and Plan: multiple episodes noted since admission multifactorial issues present: prerenal factors previous relative hypotension (sometimes as low as 80s systolic) previous ongoing use of ARB (losartan) previous IV ibuprofen use contrast exposure (CT scan on 08/04/23) recurrent infection/sepsis (suspect major component) evaluation during this hospital stay: renal ultrasound okay urine electrolytes prerenal urine eosinophils negative CPK mildly elevated (but not likely to affect kidney function) still with reasonable urine output (without use of diuretics) metabolic acidosis noted - on sodium bicarbonate per tube - titrate dose as needed no absolute need for ORDER CALLER/dialysis at this time if BUN continues to worsen, dialysis would be a consideration if there is a concern for uremia... continue to follow repeat labs and UOP (2) Sepsis: Qualifiers: Sepsis type: sepsis due to unspecified organism Sepsis acute organ dysfunction status: with acute organ dysfunction Severe sepsis acute organ dysfunction type: acute renal failure Acute renal failure type: unspecified Severe sepsis shock status: without septic shock Qualified Code(s): A41.9 - Sepsis, unspecified organism; R65.20 - Severe sepsis without septic shock; N17.9 - Acute kidney failure, unspecified Code(s): A41.9 - Sepsis, unspecified organism Status: Acute Assessment and Plan: remains hemodynamically stable off all vasopressor therapy multiple issues/etiologies: recurrent abdominal abscesses as noted by imaging to date peritonitis (see recent ascites fluid cultures) abdominal drains in place on antibiotics (3) Acute respiratory failure: Qualifiers: Respiratory failure complication: hypoxia and hypercapnia Qualified Code(s): J96.01 - Acute respiratory failure with hypoxia; J96.02 - Acute respiratory failure with hypercapnia Code(s): J96.00 - Acute respiratory failure, unspecified whether with hypoxia or hypercapnia Status: Acute Assessment and Plan: s/p tracheostomy for prolonged ventilator weaning complicated by weakness and severe deconditioning continue supportive therapy (4) Pelvic abscess in male: Code(s): K65.1 - Peritoneal abscess Status: Acute Assessment and Plan: as noted by recent CT imaging s/p drainage catheter placement by IR on antibiotics Surgery managing (5) Decubitus ulcer: Code(s): L89.90 - Pressure ulcer of unspecified site, unspecified stage Status: Acute Assessment and Plan: s/p debridement and diverting colostomy local wound care Surgery following (6) Anemia: Qualifiers: Anemia type: other cause Other causes of anemia: chronic disease, other Qualified Code(s): D63.8 - Anemia in other chronic diseases classified elsewhere Code(s): D64.9 - Anemia, unspecified Status: Acute Assessment and Plan: due to operative interventions, acute illness and MOISÉS getting Epogen 3 times a week follow trend of H/H Will continue to follow. Subjective Date/time seen: 09/22/23 09:28 Interval history: Follow-up for acute kidney injury/acute renal failure. Remains on mechanical ventilation via tracheostomy; did tolerate PSV yesterday till late in the evening; otherwise hemodynamically stable with reasonable urine output; BUN + creatinine stable if not slowly improving; remains on TPN and tube feeding. Exam Narrative: General: elderly but WD/WN male in NAD Heart: IRRR, normal S1 and S2; no rub Lungs: coarse breath sounds bilaterally Abdomen: diminished bowel sounds present; colostomy present Extremities: no cyanosis or clubbing; trace - 1+ edema Skin: no rash Objective Data Vital Signs V
[2023-09-22 09:29] LABS: Add Urine Microscopic? YES
--- NOTE | 2023-09-22 11:54 | PM.PNGS ---
Progress Note: A&P Assessment and Plan (1) S/P partial colectomy: Code(s): Z90.49 - Acquired absence of other specified parts of digestive tract Status: Acute Assessment and Plan: doc TF, slowly up to 50/hr today, dc TPN, cont abx, drains Subjective Subjective Date/Time Seen: 09/22/23 11:54 Interval history: no acute issues, doc TFs at 40 Review of Systems Review of Systems: ROS unobtainable: Yes unobtainable due to endotracheal tube Exam Const: General: cooperative and ill appearing Resp: Auscultation: clear to auscultation bilaterally Cardio: Rate: regular rate Rhythm: regular rhythm GI: Inspection: normal to inspection, distended and incision GI Palp: Yes abdominal tenderness, Yes Soft to palpation and Yes Tenderness to palpation present (GI) Other: ostomy - +fxn Objective Data Vital Signs Vital Signs: Vital Signs - 24 hr 09/21/23 12:00 09/21/23 12:00 09/21/23 12:00 Temperature 37.5 C Pulse Rate 94 89 Respiratory Rate 26 H Blood Pressure 114/60 Pulse Oximetry 99 99 Oxygen Delivery Mechanical Ventilation Fraction of Inspired Oxygen 30 09/21/23 12:00 09/21/23 13:35 09/21/23 14:00 Temperature Pulse Rate 85 92 Respiratory Rate Blood Pressure Pulse Oximetry 98 Oxygen Delivery Mechanical Ventilation Fraction of Inspired Oxygen 30 30 09/21/23 14:00 09/21/23 17:05 09/21/23 16:00 Temperature 37.4 C 37.5 C Pulse Rate 84 88 84 Respiratory Rate 31 H 29 H Blood Pressure 118/69 116/68 Pulse Oximetry 99 96 97 Oxygen Delivery Mechanical Ventilation Fraction of Inspired Oxygen 30 09/21/23 16:00 09/21/23 18:00 09/21/23 18:00 Temperature 37.5 C Pulse Rate 95 90 90 Respiratory Rate 30 H Blood Pressure 109/67 Pulse Oximetry 98 Oxygen Delivery Fraction of Inspired Oxygen 09/21/23 16:00 09/21/23 16:00 09/21/23 20:46 Temperature Pulse Rate 85 Respiratory Rate Blood Pressure Pulse Oximetry 98 97 Oxygen Delivery Mechanical Ventilation Mechanical Ventilation Fraction of Inspired Oxygen 30 30 30 09/21/23 20:00 09/21/23 20:00 09/21/23 20:00 Temperature Pulse Rate 93 Respiratory Rate Blood Pressure Pulse Oximetry 96 Oxygen Delivery Mechanical Ventilation Fraction of Inspired Oxygen 30 30 09/21/23 20:00 09/21/23 22:00 09/21/23 23:21 Temperature 37.5 C 37.7 C H Pulse Rate 93 92 89 Respiratory Rate 29 H 29 H Blood Pressure 119/59 L 112/68 Pulse Oximetry 96 97 96 Oxygen Delivery Mechanical Ventilation Fraction of Inspired Oxygen 30 09/21/23 22:00 09/22/23 00:00 09/22/23 00:00 Temperature Pulse Rate 92 97 Respiratory Rate Blood Pressure Pulse Oximetry 96 Oxygen Delivery Mechanical Ventilation Fraction of Inspired Oxygen 30 09/22/23 00:00 09/22/23 00:00 09/22/23 02:14 Temperature 37.7 C H Pulse Rate 97 91 Respiratory Rate 29 H Blood Pressure 118/75 Pulse Oximetry 96 97 Oxygen Delivery Mechanical Ventilation Fraction of Inspired Oxygen 30 30 09/22/23 02:00 09/22/23 02:00 09/22/23 04:00 Temperature 37.8 C H Pulse Rate 92 92 Respiratory Rate 31 H Blood Pressure 123/73 Pulse Oximetry 97 97 Oxygen Delivery Mechanical Ventilation Fraction of Inspired Oxygen 30 09/22/23 04:00 09/22/23 05:08 09/22/23 04:00 Temperature 37.7 C H Pulse Rate 96 95 Respiratory Rate 35 H Blood Pressure 110/89 Pulse Oximetry 97 96 Oxygen Delivery Mechanical Ventilation Fraction of Inspired Oxygen 30 30 09/22/23 04:00 09/22/23 06:00 09/22/23 06:00 Temperature 37.7 C H Pulse Rate 95 99 99 Respiratory Rate 32 H Blood Pressure 127/93 H Pulse Oximetry 97 Oxygen Delivery Fraction of Inspired Oxygen 09/22/23 08:23 09/22/23 08:00 09/22/23 08:00 Temperature Pulse Rate 87 Respiratory Rate Blood Pressure Pulse Oximetry 98 98 Oxygen Delivery Mechanical Ventilation Mechanical Ve
[2023-09-22 12:04] LABS: Glucose Point of Care 145 mg/dl (65-105)
[2023-09-22 18:11] LABS: Glucose Point of Care 103 mg/dl (65-105)
[2023-09-23] VITALS (23 sets, daily range): BP systolic 113–126; BP diastolic 57–98; PULSE 75–106; RESP 15–28; TEMP 36.8–37.4; O2SAT 94–99
[2023-09-23 00:26] LABS: Glucose Point of Care 121 mg/dl (65-105)
[2023-09-23 04:56] LABS: Basophils Absolute Auto 0.1 K/mm3 (0.0-0.1); Basophils Percent Auto 0.5 % (0.2-1.2); Eosinophils Absolute Auto 0.7 K/mm3 (0-0.3); Hemoglobin 8.5 g/dL (14.0-18.0); Immature Granulocyte Absolute 0.11 K/mm3 (0.00-0.031); Immature Granulocyte Percent A 1.2 % (0-0.5); Lymphocytes Percent Auto 17.4 % (18.3-44.2); Mean Corpuscular HGB Conc 30.4 g/dl (32-36); Mean Corpuscular Hemoglobin 29.3 pg (26-34); Mean Corpuscular Volume 96.6 fl (80-100); Mean Platelet Volume 10.3 fl (7.4-10.4); Monocytes Absolute Auto 0.7 K/mm3 (0.1-0.6); Monocytes Percent Auto 7.5 % (2.6-8.5); Neutrophils Percent Auto 65.4 % (45.5-73.1); Platelet Count Result 360 k/mm3 (150-375); Red Cell Distribution Width 15.9 % (11.5-14.5); White Blood Count 9.2 K/mm3 (4.5-10.0)
[2023-09-23 05:07] LABS: INR 1.4; Prothrombin Time 18.4 Seconds (11.1-14.7)
[2023-09-23 05:08] LABS: Partial Thromboplastin Time 36.5 SECONDS (22.3-36.8)
[2023-09-23 05:11] LABS: Alanine Aminotransferase 24 U/L (6-50); Albumin Level 3.3 g/dL (3.5-5.1); Alkaline Phosphatase 165 U/L (38-126); Anion Gap 10 mmol/L (8-16); Aspartate Amino Transferase 34 U/L (17-59); Bilirubin,Total 0.7 mg/dL (0.2-1.3); Blood Urea Nitrogen 115 mg/dL (9-20); Calcium 8.6 mg/dL (8.4-10.2); Carbon Dioxide 15 mmol/L (22-30); Chloride 116 mmol/L (98-107); Estimated CRCL calculation 22 ml/min; Estimated Glomerular Filt Rate 19; Glucose 118 mg/dL (65-110); Magnesium 2.4 mg/dL (1.6-2.3); Phosphorus 5.3 mg/dL (2.5-4.5); Potassium 4.6 mmol/L (3.4-5.0); Sodium 141 mmol/L (137-145); Triglycerides 155 mg/dL (<150)
[2023-09-23 05:18] LABS: Transferrin 120 mg/dL (206-381)
[2023-09-23] MEDS: SODIUM BICARBONATE TAB 650 MG TABLET FEED TUBE ×2 (05:20→14:06)
[2023-09-23] MEDS: CENTRAL LINE FLUSH 10 ML IV PUSH ×3 (05:20→20:08)
[2023-09-23] MEDS: CENTRAL LINE FLUSH 20 ML IV PUSH (05:21)
[2023-09-23] MEDS: LEVOTHYROXINE SODIUM INJ 100 MCG/5 ML VIAL 50 MCG IV PUSH (05:30)
[2023-09-23] MEDS: ASPIRIN 81 MG CHEWABLE TABLET 162 MG PO (08:41)
[2023-09-23] MEDS: COLLAGENASE OINT 30 GM TUBE 1 APPLIC TOPICAL (08:42)
[2023-09-23] MEDS: ENOXAPARIN 30 MG/0.3 ML SYRINGE SUB-Q (08:42)
[2023-09-23] MEDS: PANTOPRAZOLE SODIUM IV 40 MG VIAL IV PUSH ×2 (08:42→20:07)
--- NOTE | 2023-09-23 09:15 | WPDINTPN ---
Progress Note: A&P Assessment and Plan (1) Acute respiratory failure: Qualifiers: Respiratory failure complication: hypoxia and hypercapnia Qualified Code(s): J96.01 - Acute respiratory failure with hypoxia; J96.02 - Acute respiratory failure with hypercapnia Code(s): J96.00 - Acute respiratory failure, unspecified whether with hypoxia or hypercapnia Status: Acute Assessment and Plan: Acute hypoxic and hypercarbic respiratory failure. Failed multiple days off weaning trials -08/30: Tracheostomy placed 09/09 patient appears to have developed a leak in his tracheostomy cuff. NEW TRACHEOSTOMY was inserted by ENT on 09/09 09/10: Tolerated pressure support ventilation 14/8 all day, was placed on CMV mode overnight 09/11: Placed on pressure support ventilation 14/8 and tolerating for now will switch to CMV mode overnight 09/14: Patient did not tolerate pressure support ventilation as he was breathing only 8-9 times a minute, was placed on ASV mode and tolerated all day long. Placed on CMV overnight 09/15 patient tolerated pressure support ventilation 10/5 all day, was placed on CMV over 09/16: Total PSV 8/5 all day and through the night -will continue PSV 8/5 today too, patient gets tired, tachypneic, tachycardic will put him back on CMV mode 09/18: Patient was placed on CMV mode overnight after he got tired and was tachypneic on pressure support ventilation 8/5. Will give a break today -09/20: Did not tolerate pressure support ventilation or ASV -09/21 and 09/22: Tolerated pressure support ventilation 10/5 all day long, was placed on CMV mode overnight 09/23: Have placed patient back on pressure support ventilation 10/5 and tolerating (2) Sepsis: Qualifiers: Sepsis type: sepsis due to unspecified organism Sepsis acute organ dysfunction status: with acute organ dysfunction Severe sepsis acute organ dysfunction type: acute renal failure Acute renal failure type: unspecified Severe sepsis shock status: without septic shock Qualified Code(s): A41.9 - Sepsis, unspecified organism; R65.20 - Severe sepsis without septic shock; N17.9 - Acute kidney failure, unspecified Code(s): A41.9 - Sepsis, unspecified organism Status: Acute Assessment and Plan: Secondary to peritonitis. Patient also appears to have consolidation of the lower lobes on the CT done which could be aspiration versus atelectasis 08/06: Repeat CT scan of abdomen and pelvis showed gallbladder distention and also fluid collection likely exudative 08/06 patient underwent cholecystostomy tube placement and drainage of peritoneal abscess-cultures have been sent 08/06: IR placed drain in abscess and right and gallbladder which are in place Gallbladder drain culture grew Enterococcus Abscess drain culture grew prevotella Patient continues to have elevated WBC count and low-grade fevers 08/09 CT scan shows multiple peritoneal fluid collections. Although patient has drain in place, may not provide adequate source control due to multiple fluid locations. Recommend re-evaluation for abdominal washout due to persistent elevated WBC low-grade fevers. 08/10 repeat blood cultures sent 08/11 fungal blood culture were sent and patient was started on empiric micafungin 08/[address] of abdomen showed multiple intraperitoneal abscesses and worsening mass in right inguinal canal and right scrotum suggestive of infected hematoma 08/14 multiple (5) drains for placed in abdomen. Cultures growing Haemophilus parainfluenza 08/[address] scan: 1. Multiple abdominal abscesses with interval improvement status post percutaneous drainage placement.2. Small pleural effusions.3. Bibasilar airspace opacities, consistent with atelectasis versus pneumonia.4. Stable mass involving the right inguinal canal, probable infected hematoma. 08/16 repeat blood cultures sent are negative till now, Weathers was changed, UA suggestive of UTI 08/17 patient remains febr
--- NOTE | 2023-09-23 11:10 | PM.PNGS ---
Progress Note: A&P Assessment and Plan (1) S/P partial colectomy: Code(s): Z90.49 - Acquired absence of other specified parts of digestive tract Status: Acute Assessment and Plan: doing well, WBC normalized, doc TF @ goal, likely dc drains soon Subjective Subjective Date/Time Seen: 09/23/23 11:10 Interval history: no acute issues, doc TFs at 50/hr Review of Systems Review of Systems: ROS unobtainable: Yes unobtainable due to endotracheal tube Exam Const: General: cooperative, comfortable and ill appearing Resp: Auscultation: clear to auscultation bilaterally Cardio: Rate: regular rate Rhythm: regular rhythm GI: Inspection: normal to inspection and incision GI Palp: Yes abdominal tenderness, Yes Soft to palpation, Yes Tenderness to palpation present (GI), No Guarding due to palpation present (GI) and No Rigid due to palpation Other: drains x 2 c scant output, good ostomy output Objective Data Vital Signs Vital Signs: Vital Signs - 24 hr 09/22/23 11:17 09/22/23 11:58 09/22/23 12:00 Temperature 37.4 C Pulse Rate 100 100 94 Respiratory Rate 26 H Blood Pressure 120/81 Pulse Oximetry 95 98 Oxygen Delivery Mechanical Ventilation Fraction of Inspired Oxygen 30 09/22/23 12:00 09/22/23 12:00 09/22/23 14:00 Temperature Pulse Rate 89 Respiratory Rate Blood Pressure Pulse Oximetry 98 Oxygen Delivery Mechanical Ventilation Fraction of Inspired Oxygen 30 30 09/22/23 14:00 09/22/23 15:53 09/22/23 16:00 Temperature 37.1 C Pulse Rate 89 93 Respiratory Rate 21 H Blood Pressure 109/72 Pulse Oximetry 97 99 Oxygen Delivery Mechanical Ventilation Fraction of Inspired Oxygen 30 30 09/22/23 16:00 09/22/23 17:53 09/22/23 16:00 Temperature 36.9 C Pulse Rate 83 89 95 Respiratory Rate 21 H Blood Pressure 127/69 Pulse Oximetry 97 99 Oxygen Delivery Mechanical Ventilation Fraction of Inspired Oxygen 30 09/22/23 18:00 09/22/23 16:00 09/22/23 18:00 Temperature 36.9 C Pulse Rate 92 92 Respiratory Rate 23 H Blood Pressure 133/80 Pulse Oximetry 100 97 Oxygen Delivery Mechanical Ventilation Fraction of Inspired Oxygen 30 09/22/23 19:32 09/22/23 23:13 09/22/23 20:00 Temperature Pulse Rate 98 102 H 104 H Respiratory Rate Blood Pressure Pulse Oximetry 98 98 Oxygen Delivery Mechanical Ventilation Mechanical Ventilation Fraction of Inspired Oxygen 30 30 09/22/23 20:00 09/22/23 20:00 09/22/23 20:00 Temperature 37.2 C Pulse Rate 100 100 Respiratory Rate 23 H 23 H Blood Pressure 130/77 Pulse Oximetry 98 98 Oxygen Delivery Mechanical Ventilation Fraction of Inspired Oxygen 30 30 09/22/23 22:00 09/22/23 22:00 09/23/23 00:00 Temperature 37.2 C Pulse Rate 100 100 96 Respiratory Rate 25 H Blood Pressure 107/71 Pulse Oximetry 96 Oxygen Delivery Fraction of Inspired Oxygen 09/23/23 00:00 09/23/23 00:00 09/23/23 01:59 Temperature 37.3 C Pulse Rate 96 102 H 92 Respiratory Rate 22 H 22 H Blood Pressure 124/67 Pulse Oximetry 98 98 97 Oxygen Delivery Mechanical Ventilation Mechanical Ventilation Fraction of Inspired Oxygen 30 30 09/23/23 02:00 09/23/23 02:00 09/23/23 04:47 Temperature 37.3 C Pulse Rate 97 100 97 Respiratory Rate 22 H Blood Pressure 125/82 Pulse Oximetry 99 97 Oxygen Delivery Mechanical Ventilation Fraction of Inspired Oxygen 30 09/23/23 04:00 09/23/23 04:00 09/23/23 04:00 Temperature 37.3 C Pulse Rate 106 H 98 Respiratory Rate 19 Blood Pressure 115/78 Pulse Oximetry 99 Oxygen Delivery Fraction of Inspired Oxygen 30 09/23/23 04:00 09/23/23 06:00 09/23/23 06:00 Temperature 37.4 C Pulse Rate 98 99 96 Respiratory Rate 19 22 H Blood Pressure 122/79 Pulse Oximetry 99 98 Oxygen Delivery Mechanical Ventilation Fraction of Inspired Oxygen 30 09/23/23 08:00 09/23/23 08:00
--- NOTE | 2023-09-23 11:16 | PM.PNNEP ---
Progress Note: A&P Assessment and Plan (1) MOISÉS (acute kidney injury): Code(s): N17.9 - Acute kidney failure, unspecified Status: Acute Assessment and Plan: multiple episodes noted since admission multifactorial issues present: prerenal factors previous relative hypotension (sometimes as low as 80s systolic) previous ongoing use of ARB (losartan) previous IV ibuprofen use contrast exposure (CT scan on 08/04/23) recurrent infection/sepsis (suspect major component) evaluation during this hospital stay: renal ultrasound okay urine electrolytes prerenal urine eosinophils negative CPK mildly elevated (but not likely to affect kidney function) still with reasonable urine output (without use of diuretics) metabolic acidosis noted - on sodium bicarbonate per tube - titrate dose as needed no absolute need for CONCRETE [employer]ER/dialysis at this time if BUN continues to worsen, dialysis would be a consideration if there is a concern for uremia... continue to follow repeat labs and UOP (2) Sepsis: Qualifiers: Sepsis type: sepsis due to unspecified organism Sepsis acute organ dysfunction status: with acute organ dysfunction Severe sepsis acute organ dysfunction type: acute renal failure Acute renal failure type: unspecified Severe sepsis shock status: without septic shock Qualified Code(s): A41.9 - Sepsis, unspecified organism; R65.20 - Severe sepsis without septic shock; N17.9 - Acute kidney failure, unspecified Code(s): A41.9 - Sepsis, unspecified organism Status: Acute Assessment and Plan: remains hemodynamically stable off all vasopressor therapy multiple issues/etiologies: recurrent abdominal abscesses as noted by imaging to date peritonitis (see recent ascites fluid cultures) abdominal drains in place on antibiotics (3) Acute respiratory failure: Qualifiers: Respiratory failure complication: hypoxia and hypercapnia Qualified Code(s): J96.01 - Acute respiratory failure with hypoxia; J96.02 - Acute respiratory failure with hypercapnia Code(s): J96.00 - Acute respiratory failure, unspecified whether with hypoxia or hypercapnia Status: Acute Assessment and Plan: s/p tracheostomy for prolonged ventilator weaning complicated by weakness and severe deconditioning continue supportive therapy (4) Pelvic abscess in male: Code(s): K65.1 - Peritoneal abscess Status: Acute Assessment and Plan: as noted by recent CT imaging s/p drainage catheter placement by IR on antibiotics Surgery managing (5) Decubitus ulcer: Code(s): L89.90 - Pressure ulcer of unspecified site, unspecified stage Status: Acute Assessment and Plan: s/p debridement and diverting colostomy local wound care Surgery following (6) Metabolic acidosis: Code(s): E87.20 - Acidosis, unspecified Status: Acute Assessment and Plan: presumably due to MOISÉS/ARF and uremia lactic acid in normal range titrate sodium bicarbonate to compensate (7) Anemia: Qualifiers: Anemia type: other cause Other causes of anemia: chronic disease, other Qualified Code(s): D63.8 - Anemia in other chronic diseases classified elsewhere Code(s): D64.9 - Anemia, unspecified Status: Acute Assessment and Plan: due to operative interventions, acute illness and MOISÉS getting Epogen 3 times a week follow trend of H/H Will continue to follow. Subjective Date/time seen: 09/23/23 11:16 Interval history: Follow-up for acute kidney injury/acute renal failure. BUN remains elevated but creatinine slowly improving and continues to make reasonable urine output; remains on mechanical ventilation via tracheostomy; TPN discontinued yesterday and seems to be tolerating tube feedings; hemodynamically stable and appears more awake/alert at the time of my visit; no other acute issues/events overnig
--- NOTE | 2023-09-23 11:16 | P.PNNP_ITS ---
Progress Note: A&P Assessment and Plan (1) MOISÉS (acute kidney injury): Code(s): N17.9 - Acute kidney failure, unspecified Status: Acute Assessment and Plan: * multiple episodes noted since admission * multifactorial issues present: * prerenal factors * previous relative hypotension (sometimes as low as 80s systolic) * previous ongoing use of ARB (losartan) * previous IV ibuprofen use * contrast exposure (CT scan on 08/04/23) * recurrent infection/sepsis (suspect major component) * evaluation during this hospital stay: * renal ultrasound okay * urine electrolytes prerenal * urine eosinophils negative * CPK mildly elevated (but not likely to affect kidney function) * still with reasonable urine output (without use of diuretics) * metabolic acidosis noted - on sodium bicarbonate per tube - titrate dose as needed * no absolute need for GLASS INSPECTOR/dialysis at this time * if BUN continues to worsen, dialysis would be a consideration if there is a concern for uremia... * continue to follow repeat labs and UOP (2) Sepsis: Qualifiers: Sepsis type: sepsis due to unspecified organism Sepsis acute organ dysfunction status: with acute organ dysfunction Severe sepsis acute organ dysfunction type: acute renal failure Acute renal failure type: unspecified Severe sepsis shock status: without septic shock Qualified Code(s): A41.9 - Sepsis, unspecified organism; R65.20 - Severe sepsis without septic shock; N17.9 - Acute kidney failure, unspecified Code(s): A41.9 - Sepsis, unspecified organism Status: Acute Assessment and Plan: * remains hemodynamically stable * off all vasopressor therapy * multiple issues/etiologies: * recurrent abdominal abscesses as noted by imaging to date * peritonitis (see recent ascites fluid cultures) * abdominal drains in place * on antibiotics (3) Acute respiratory failure: Qualifiers: Respiratory failure complication: hypoxia and hypercapnia Qualified Code(s): J96.01 - Acute respiratory failure with hypoxia; J96.02 - Acute respiratory failure with hypercapnia Code(s): J96.00 - Acute respiratory failure, unspecified whether with hypoxia or hypercapnia Status: Acute Assessment and Plan: * s/p tracheostomy for prolonged ventilator weaning * complicated by weakness and severe deconditioning * continue supportive therapy (4) Pelvic abscess in male: Code(s): K65.1 - Peritoneal abscess Status: Acute Assessment and Plan: * as noted by recent CT imaging * s/p drainage catheter placement by IR * on antibiotics * Surgery managing (5) Decubitus ulcer: Code(s): L89.90 - Pressure ulcer of unspecified site, unspecified stage Status: Acute Assessment and Plan: * s/p debridement and diverting colostomy * local wound care * Surgery following (6) Metabolic acidosis: Code(s): E87.20 - Acidosis, unspecified Status: Acute Assessment and Plan: * presumably due to MOISÉS/ARF and uremia * lactic acid in normal range * titrate sodium bicarbonate to compensate (7) Anemia: Qualifiers: Anemia type: other cause Other causes of anemia: chronic disease, other Qualified Code(s): D63.8 - Anemia in other chronic diseases classified elsewhere Code(s): D64.9 - Anemia, unspecified Status: Acute Assessment and Plan: * due to operative interventions, acute illness and MOISÉS * getting Epogen 3 times a week * follow trend of H/H Will continu
[2023-09-23 12:44] LABS: Glucose Point of Care 114 mg/dl (65-105)
[2023-09-23] MEDS: SODIUM BICARBONATE TAB 650 MG TABLET 1300 MG FEED TUBE (17:54)
[2023-09-23 18:05] LABS: Glucose Point of Care 131 mg/dl (65-105)
[2023-09-23] MEDS: ALTEPLASE 2 MG VIAL (CATHFLO) IV PUSH ×2 (21:01→21:56)
[2023-09-23 23:05] LABS: Glucose Point of Care 117 mg/dl (65-105)
[2023-09-24] VITALS (23 sets, daily range): BP systolic 102–132; BP diastolic 57–91; PULSE 75–101; RESP 18–24; TEMP 36.9–37.2; O2SAT 83–99
[2023-09-24] MEDS: CENTRAL LINE FLUSH 10 ML IV PUSH ×3 (05:54→20:25)
[2023-09-24] MEDS: LEVOTHYROXINE SODIUM INJ 100 MCG/5 ML VIAL 50 MCG IV PUSH (05:57)
[2023-09-24 06:22] LABS: Anion Gap 13 mmol/L (8-16); Blood Urea Nitrogen 107 mg/dL (9-20); Calcium 8.4 mg/dL (8.4-10.2); Carbon Dioxide 16 mmol/L (22-30); Chloride 118 mmol/L (98-107); Estimated CRCL calculation 23 ml/min; Estimated Glomerular Filt Rate 20; Glucose 120 mg/dL (65-110); Phosphorus 5.1 mg/dL (2.5-4.5); Potassium 4.7 mmol/L (3.4-5.0); Sodium 147 mmol/L (137-145); Triglycerides 128 mg/dL (<150)
[2023-09-24 07:16] LABS: Basophils Percent Auto 0.4 % (0.2-1.2); Eosinophils Absolute Auto 0.8 K/mm3 (0-0.3); Eosinophils Percent Auto 8.8 % (0-4.4); Hematocrit 27.7 % (42.0-52.0); Hemoglobin 8.4 g/dL (14.0-18.0); Immature Granulocyte Absolute 0.09 K/mm3 (0.00-0.031); Lymphocytes Absolute Auto 1.79 K/mm3 (0.9-3.2); Lymphocytes Percent Auto 20.1 % (18.3-44.2); Mean Corpuscular HGB Conc 30.3 g/dl (32-36); Mean Corpuscular Hemoglobin 29.7 pg (26-34); Mean Corpuscular Volume 97.9 fl (80-100); Mean Platelet Volume 10.9 fl (7.4-10.4); Monocytes Absolute Auto 0.8 K/mm3 (0.1-0.6); Monocytes Percent Auto 8.7 % (2.6-8.5); Neutrophils Absolute Auto 5.4 K/mm3 (1.3-6.7); Platelet Count Result 368 k/mm3 (150-375); Red Blood Count 2.83 M/mm3 (4.6-6.20); Red Cell Distribution Width 15.9 % (11.5-14.5); White Blood Count 8.9 K/mm3 (4.5-10.0)
[2023-09-24] MEDS: PANTOPRAZOLE SODIUM IV 40 MG VIAL IV PUSH ×2 (08:06→20:25)
--- NOTE | 2023-09-24 08:39 | PM.IMPN ---
Progress Note: A&P Assessment and Plan (1) Acute respiratory failure: Qualifiers: Respiratory failure complication: hypoxia and hypercapnia Qualified Code(s): J96.01 - Acute respiratory failure with hypoxia; J96.02 - Acute respiratory failure with hypercapnia Code(s): J96.00 - Acute respiratory failure, unspecified whether with hypoxia or hypercapnia Status: Acute Assessment and Plan: Acute hypoxic and hypercarbic respiratory failure. Failed multiple days of weaning trials -08/30: Tracheostomy placed 09/09 patient appears to have developed a leak in his tracheostomy cuff. NEW TRACHEOSTOMY was inserted by ENT on 09/09 09/10: Tolerated pressure support ventilation 14/8 all day, was placed on CMV mode overnight 09/11: Placed on pressure support ventilation 14/8 and tolerating for now will switch to CMV mode overnight 09/14: Patient did not tolerate pressure support ventilation as he was breathing only 8-9 times a minute, was placed on ASV mode and tolerated all day long. Placed on CMV overnight 09/15 patient tolerated pressure support ventilation 10/5 all day, was placed on CMV over 09/16: Total PSV 8/5 all day and through the night -will continue PSV 8/5 today too, patient gets tired, tachypneic, tachycardic will put him back on CMV mode 09/18: Patient was placed on CMV mode overnight after he got tired and was tachypneic on pressure support ventilation 8/5. Will give a break today -09/20: Did not tolerate pressure support ventilation or ASV -09/21 and 09/22: Tolerated pressure support ventilation 10/5 all day long, was placed on CMV mode overnight -09/23: Patient has been tolerating pressure support ventilation 10/5 and tolerating all day and is placed on CMV of during the night. -09/24: will repeat again today (2) Sepsis: Qualifiers: Sepsis type: sepsis due to unspecified organism Sepsis acute organ dysfunction status: with acute organ dysfunction Severe sepsis acute organ dysfunction type: acute renal failure Acute renal failure type: unspecified Severe sepsis shock status: without septic shock Qualified Code(s): A41.9 - Sepsis, unspecified organism; R65.20 - Severe sepsis without septic shock; N17.9 - Acute kidney failure, unspecified Code(s): A41.9 - Sepsis, unspecified organism Status: Acute Assessment and Plan: Secondary to peritonitis. Patient also appears to have consolidation of the lower lobes on the CT done which could be aspiration versus atelectasis 08/06: Repeat CT scan of abdomen and pelvis showed gallbladder distention and also fluid collection likely exudative 08/06 patient underwent cholecystostomy tube placement and drainage of peritoneal abscess-cultures have been sent 08/06: IR placed drain in abscess and right and gallbladder which are in place Gallbladder drain culture grew Enterococcus Abscess drain culture grew prevotella Patient continues to have elevated WBC count and low-grade fevers 08/09 CT scan shows multiple peritoneal fluid collections. Although patient has drain in place, may not provide adequate source control due to multiple fluid locations. Recommend re-evaluation for abdominal washout due to persistent elevated WBC low-grade fevers. 08/10 repeat blood cultures sent 08/11 fungal blood culture were sent and patient was started on empiric micafungin 08/[address] of abdomen showed multiple intraperitoneal abscesses and worsening mass in right inguinal canal and right scrotum suggestive of infected hematoma 08/14 multiple (5) drains for placed in abdomen. Cultures growing Haemophilus parainfluenza 08/[address] scan: 1. Multiple abdominal abscesses with interval improvement status post percutaneous drainage placement.2. Small pleural effusions.3. Bibasilar airspace opacities, consistent with atelectasis versus pneumonia.4. Stable mass involving the right inguinal canal, probable infected hematoma. 08/16 repeat blood cultures sent are neg
[2023-09-24] MEDS: SCOPOLAMINE 1 MG PATCH 1 PATCH TRANSDERM (08:43)
[2023-09-24] MEDS: ACETAMINOPHEN ELIXIR 325 MG/10.15 ML UDC 650 MG FEED TUBE (08:43)
[2023-09-24] MEDS: SODIUM BICARBONATE TAB 650 MG TABLET 1300 MG FEED TUBE ×2 (08:46→16:57)
[2023-09-24] MEDS: ASPIRIN 81 MG CHEWABLE TABLET 162 MG PO (08:46)
[2023-09-24] MEDS: COLLAGENASE OINT 30 GM TUBE 1 APPLIC TOPICAL (08:46)
[2023-09-24] MEDS: ENOXAPARIN 30 MG/0.3 ML SYRINGE SUB-Q (08:46)
--- NOTE | 2023-09-24 08:46 | P.PNINT_ITS ---
Progress Note: A&P Assessment and Plan (1) Acute respiratory failure: Qualifiers: Respiratory failure complication: hypoxia and hypercapnia Qualified Code(s): J96.01 - Acute respiratory failure with hypoxia; J96.02 - Acute respiratory failure with hypercapnia Code(s): J96.00 - Acute respiratory failure, unspecified whether with hypoxia or hypercapnia Status: Acute Assessment and Plan: Acute hypoxic and hypercarbic respiratory failure. Failed multiple days off weaning trials -08/30: Tracheostomy placed 09/09 patient appears to have developed a leak in his tracheostomy cuff. NEW TRACHEOSTOMY was inserted by ENT on 09/09 09/10: Tolerated pressure support ventilation 14/8 all day, was placed on CMV mode overnight 09/11: Placed on pressure support ventilation 14/8 and tolerating for now will switch to CMV mode overnight 09/14: Patient did not tolerate pressure support ventilation as he was breathing only 8-9 times a minute, was placed on ASV mode and tolerated all day long. Placed on CMV overnight 09/15 patient tolerated pressure support ventilation 10/5 all day, was placed on CMV over 09/16: Total PSV 8/5 all day and through the night -will continue PSV 8/5 today too, patient gets tired, tachypneic, tachycardic will put him back on CMV mode 09/18: Patient was placed on CMV mode overnight after he got tired and was tachypneic on pressure support ventilation 8/5. Will give a break today -09/20: Did not tolerate pressure support ventilation or ASV -09/21 and 09/22: Tolerated pressure support ventilation 10/5 all day long, was placed on CMV mode overnight -09/23: Patient has been tolerating pressure support ventilation 10/5 and tolerating all day and is placed on CMV of during the night. -will repeat again today (2) Sepsis: Qualifiers: Sepsis type: sepsis due to unspecified organism Sepsis acute organ dysfunction status: with acute organ dysfunction Severe sepsis acute organ dysfunction type: acute renal failure Acute renal failure type: unspecified Severe sepsis shock status: without septic shock Qualified Code(s): A41.9 - Sepsis, unspecified organism; R65.20 - Severe sepsis without septic shock; N17.9 - Acute kidney failure, unspecified Code(s): A41.9 - Sepsis, unspecified organism Status: Acute Assessment and Plan: Secondary to peritonitis. Patient also appears to have consolidation of the lower lobes on the CT done which could be aspiration versus atelectasis 08/06: Repeat CT scan of abdomen and pelvis showed gallbladder distention and also fluid collection likely exudative 08/06 patient underwent cholecystostomy tube placement and drainage of peritoneal abscess-cultures have been sent 08/06: IR placed drain in abscess and right and gallbladder which are in place Gallbladder drain culture grew Enterococcus Abscess drain culture grew prevotella Patient continues to have elevated WBC count and low-grade fevers 08/09 CT scan shows multiple peritoneal fluid collections. Although patient has drain in place, may not provide adequate source control due to multiple fluid locations. Recommend re-evaluation for abdominal washout due to persistent elevated WBC low-grade fevers. 08/10 repeat blood cultures sent 08/11 fungal blood culture were sent and patient was started on empiric micafungin 08/[address] of abdomen showed multiple intraperitoneal abscesses and worsening mass in right inguinal canal and right scrotum suggestive of infected hematoma 08/14 multiple (5) drains for placed in abdomen. Cultures growing Haemophilus parainfluenza 08/[address] scan: 1. Multiple abdominal abscesses with
[2023-09-24] MEDS: EPOETIN ALFA-EPBX 10,000 UNITS/ML VIAL 10000 UNITS SUB-Q (08:47)
--- NOTE | 2023-09-24 10:45 | PCNFU ---
Nutrition Follow-Up Complete: Swallowing Diffuculties as related to mentation/risk of aspiration as evidenced by NPO. Goal: Meet estimated nutritional needs - Progressing toward goal. Continue with same goal Pt current nutrition is Vital AF 1.2 @ 50 ml/h: 1375 kcal, 83 g protein, 892 ml free water. Flush 60 ml q 4 hours. Meeting estimated 68% EER. Nutrition recommendation: Advance tube feeding to goal 60 ml/h: 1584 kcal, 99 g protein, 1070 ml free water when medically able Last recorded weight is 120 kg. Bowel Motility: +1 BM 09/24/23 Labs Reviewed: Hgb 8.4, Hct 27.7, Alb 3.3, Na 147, GFR 20, BUN 107, Cre 3.0, Glu 120 Meds Noted: Protonix, sodium bicarb Skin: Wounds improving per nursing care partner assesment Additional Notes: TPN is off. Tolerating tube feeding well. Can increase to goal when medically able. Flushes were increased from 30 ml q 4 hours to 60 ml q 4 hours due to elevated serum Na. Will montior weight, labs, skin, meds, TPN every Saturday and Saturday.
--- NOTE | 2023-09-24 11:21 | PM.PNNEP ---
Progress Note: A&P Assessment and Plan (1) MOISÉS (acute kidney injury): Code(s): N17.9 - Acute kidney failure, unspecified Status: Acute Assessment and Plan: multiple episodes noted since admission slow improvement noted multifactorial issues present: prerenal factors previous relative hypotension (sometimes as low as 80s systolic) previous ongoing use of ARB (losartan) previous IV ibuprofen use contrast exposure (CT scan on 08/04/23) recurrent infection/sepsis (suspect major component) evaluation during this hospital stay: renal ultrasound okay urine electrolytes prerenal urine eosinophils negative CPK mildly elevated (but not likely to affect kidney function) still with reasonable urine output (without use of diuretics) metabolic acidosis noted - on sodium bicarbonate per tube - titrate dose as needed no absolute need for REED PRESS FEEDER/dialysis at this time if BUN continues to worsen, dialysis would be a consideration if there is a concern for uremia... continue to follow repeat labs and UOP (2) Sepsis: Qualifiers: Acute renal failure type: unspecified Sepsis acute organ dysfunction status: with acute organ dysfunction Sepsis type: sepsis due to unspecified organism Severe sepsis acute organ dysfunction type: acute renal failure Severe sepsis shock status: without septic shock Qualified Code(s): A41.9 - Sepsis, unspecified organism; R65.20 - Severe sepsis without septic shock; N17.9 - Acute kidney failure, unspecified Code(s): A41.9 - Sepsis, unspecified organism Status: Acute Assessment and Plan: remains hemodynamically stable off all vasopressor therapy multiple issues/etiologies: recurrent abdominal abscesses as noted by imaging to date peritonitis (see recent ascites fluid cultures) abdominal drains in place on antibiotics (3) Acute respiratory failure: Qualifiers: Respiratory failure complication: hypoxia and hypercapnia Qualified Code(s): J96.01 - Acute respiratory failure with hypoxia; J96.02 - Acute respiratory failure with hypercapnia Code(s): J96.00 - Acute respiratory failure, unspecified whether with hypoxia or hypercapnia Status: Acute Assessment and Plan: s/p tracheostomy for prolonged ventilator weaning complicated by weakness and severe deconditioning continue supportive therapy (4) Pelvic abscess in male: Code(s): K65.1 - Peritoneal abscess Status: Acute Assessment and Plan: as noted by recent CT imaging s/p drainage catheter placement by IR on antibiotics Surgery managing (5) Decubitus ulcer: Code(s): L89.90 - Pressure ulcer of unspecified site, unspecified stage Status: Acute Assessment and Plan: s/p debridement and diverting colostomy local wound care Surgery following (6) Metabolic acidosis: Code(s): E87.20 - Acidosis, unspecified Status: Acute Assessment and Plan: presumably due to MOISÉS/ARF and uremia lactic acid in normal range titrate sodium bicarbonate to compensate (7) Anemia: Qualifiers: Anemia type: other cause Other causes of anemia: chronic disease, other Qualified Code(s): D63.8 - Anemia in other chronic diseases classified elsewhere Code(s): D64.9 - Anemia, unspecified Status: Acute Assessment and Plan: due to operative interventions, acute illness and MOISÉS getting Epogen 3 times a week follow trend of H/H Will continue to follow. Subjective Date/time seen: 09/24/23 11:21 Interval history: Follow-up for acute kidney injury/acute renal failure. Remains on mechanical ventilation via tracheostomy; appears to be doing well with PSV trials in the last few days; BUN and creatinine continues to downtrend with reasonable urine output; hemodynamically stable at this time; abdominal drain output appears to have decreased as well. Exam Narrative: G
--- NOTE | 2023-09-24 11:21 | P.PNNP_ITS ---
Progress Note: A&P Assessment and Plan (1) MOISÉS (acute kidney injury): Code(s): N17.9 - Acute kidney failure, unspecified Status: Acute Assessment and Plan: * multiple episodes noted since admission * slow improvement noted * multifactorial issues present: * prerenal factors * previous relative hypotension (sometimes as low as 80s systolic) * previous ongoing use of ARB (losartan) * previous IV ibuprofen use * contrast exposure (CT scan on 08/04/23) * recurrent infection/sepsis (suspect major component) * evaluation during this hospital stay: * renal ultrasound okay * urine electrolytes prerenal * urine eosinophils negative * CPK mildly elevated (but not likely to affect kidney function) * still with reasonable urine output (without use of diuretics) * metabolic acidosis noted - on sodium bicarbonate per tube - titrate dose as needed * 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 * continue to follow repeat labs and UOP (2) Sepsis: Qualifiers: Acute renal failure type: unspecified Sepsis acute organ dysfunction status: with acute organ dysfunction Sepsis type: sepsis due to unspecified organism Severe sepsis acute organ dysfunction type: acute renal failure Severe sepsis shock status: without septic shock Qualified Code(s): A41.9 - Sepsis, unspecified organism; R65.20 - Severe sepsis without septic shock; N17.9 - Acute kidney failure, unspecified Code(s): A41.9 - Sepsis, unspecified organism Status: Acute Assessment and Plan: * remains hemodynamically stable * off all vasopressor therapy * multiple issues/etiologies: * recurrent abdominal abscesses as noted by imaging to date * peritonitis (see recent ascites fluid cultures) * abdominal drains in place * on antibiotics (3) Acute respiratory failure: Qualifiers: Respiratory failure complication: hypoxia and hypercapnia Qualified Co de(s): J96.01 - Acute respiratory failure with hypoxia; J96.02 - Acute respiratory failure with hypercapnia Code(s): J96.00 - Acute respiratory failure, unspecified whether with hypoxia or hypercapnia Status: Acute Assessment and Plan: * s/p tracheostomy for prolonged ventilator weaning * complicated by weakness and severe deconditioning * continue supportive therapy (4) Pelvic abscess in male: Code(s): K65.1 - Peritoneal abscess Status: Acute Assessment and Plan: * as noted by recent CT imaging * s/p drainage catheter placement by IR * on antibiotics * Surgery managing (5) Decubitus ulcer: Code(s): L89.90 - Pressure ulcer of unspecified site, unspecified stage Status: Acute Assessment and Plan: * s/p debridement and diverting colostomy * local wound care * Surgery following (6) Metabolic acidosis: Code(s): E87.20 - Acidosis, unspecified Status: Acute Assessment and Plan: * presumably due to MOISÉS/ARF and uremia * lactic acid in normal range * titrate sodium bicarbonate to compensate (7) Anemia: Qualifiers: Anemia type: other cause Other causes of anemia: chronic disease, other Qualified Code(s): D63.8 - Anemia in other chronic diseases classified elsewhere Code(s): D64.9 - Anemia, unspecified Status: Acute Assessment and Plan: * due to operative interventions, acute illness and MOISÉS * getting Epogen 3 times a week * follow trend
[2023-09-24 12:03] LABS: Glucose Point of Care 135 mg/dl (65-105)
--- NOTE | 2023-09-24 12:26 | PM.PNGS ---
Progress Note: A&P Assessment and Plan (1) S/P partial colectomy: Code(s): Z90.49 - Acquired absence of other specified parts of digestive tract Status: Acute Assessment and Plan: No or minimal bowel movements from rectum. (2) Colostomy status: Code(s): Z93.3 - Colostomy status Status: Acute Assessment and Plan: Stoma pink and healthy, having more and appropriate output. 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 Patient very weak. (5) Protein-calorie malnutrition, severe: Code(s): E43 - Unspecified severe protein-calorie malnutrition Status: Acute Assessment and Plan: Patient off TPN and going to the recommended max dose of tube feedings at 60 cc an hour. I discussed PEG tube with Dr. Whitfield. I also talked with the family and they are agreeable to proceeding with percutaneous G-tube placement. We will go ahead and consult GI. (6) History of tracheostomy: Code(s): Z98.890 - Other specified postprocedural states Status: Acute Assessment and Plan: Working well. Subjective Subjective Date/Time Seen: 09/24/23 12:26 Patient reports: flatus, no bowel movement (Per nsg--no rectal BM yesterday or today), bowel movement (BM's recorded in graphics are actually from colostomy, not per rectum), afebrile and other (somnolent again today, arouses but pretty sleepy) Review of Systems Review of Systems: ROS unobtainable: Yes unobtainable due to medical condition Exam Const: General: comfortable, lethargic, patient obtunded and edematous Orientation/consciousness: patient obtunded Limitations: altered mental status GI: Inspection: incision (Both the groin and the abdominal incision are dry and healing well) and other (Green drainage both pigtails, output decreasing nicely) GI Palp: Yes Soft to palpation, No Tenderness to palpation present (GI), No Guarding due to palpation present (GI), No Hernia present, No Palpable mass present, No Ascites present and No Rebound tenderness present Auscultation: normoactive bowel sounds Other: Air in stoma bag with small amount liquid stool. Receiving tube feeds at 50 cc an hour and tolerating well. Plan is to increase to 60 cc an hour today. : Male General Exam: Yes edema and No hernia (Groin incision healing well) Penis: Yes edematous Scrotum: edematous Urinary Catheter: Urinary Catheter: patent and draining Skin: Wounds: wounds noted (Perianal wound clean and healing.) Neuro: General: patient obtunded (Arouses briefly. Apparently was awake earlier today.) Objective Data Vital Signs Vital Signs: Vital Signs - 24 hr 09/23/23 14:00 09/23/23 14:00 09/23/23 16:00 Temperature 36.9 C Pulse Rate 97 89 86 Respiratory Rate 15 Blood Pressure 119/72 Pulse Oximetry 98 Oxygen Delivery Fraction of Inspired Oxygen 09/23/23 16:00 09/23/23 16:00 09/23/23 16:00 Temperature 36.9 C Pulse Rate 82 83 Respiratory Rate 23 H 23 H Blood Pressure 117/84 Pulse Oximetry 97 97 Oxygen Delivery Mechanical Ventilation Fraction of Inspired Oxygen 30 30 09/23/23 18:00 09/23/23 15:08 09/23/23 17:38 Temperature Pulse Rate 89 93 86 Respiratory Rate Blood Pressure Pulse Oximetry 97 97 Oxygen Delivery Mechanical Ventilation Mechanical Ventilation Fraction of Inspired Oxygen 30 30 09/23/23 17:57 09/23/23 20:00 09/23/23 20:00 Temperature 37.0 C 37.0 C Pulse Rate 93 92 Respiratory Rate 22 H 18 Blood Pressure 118/57
--- NOTE | 2023-09-24 16:20 | WPDGICN ---
Assessment and Plan Assessment and plan (1) S/P partial colectomy: Code(s): Z90.49 - Acquired absence of other specified parts of digestive tract Status: Acute Assessment and Plan: He had diverting colostomy due to an abscess in the perirectal area. 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 This limits the available area for placement of percutaneous gastrostomy tube. I explained to the patient and his family member that we may or may not be able to place the gastrostomy tube but will not know until he is sedated. (3) History of tracheostomy: Code(s): Z98.890 - Other specified postprocedural states Status: Acute (4) Protein-calorie malnutrition, severe: Code(s): E43 - Unspecified severe protein-calorie malnutrition Status: Acute Assessment and Plan: He has been getting tube feedings by NG tube. (5) Paroxysmal atrial fibrillation: Code(s): I48.0 - Paroxysmal atrial fibrillation Status: Chronic Assessment and Plan: He had been on Xarelto prior to admission. Plan EGD with percutaneous gastrostomy tube placement tomorrow. Will hold Lovenox and aspirin until after the procedure. He is already on antibiotics. GI Consult Note Consult date/time: 09/24/23 16:20 HPI: Omar Ryan is a 83 year old male Who underwent surgery for a very large incarcerated right inguinal hernia. It was not quite 2 months ago. He subsequently developed peritonitis due to a leak. He has required percutaneous drainage and then subsequently underwent Additional surgery with colostomy. He had been noted to have a large open wound posterior to his rectum and consequently required diverting colostomy. at that time extensive adhesiolysis was also required. The patient has had a tracheostomy. He is able to understand me but is hard of hearing. He understands that it is desired for him to have a gastrostomy tube so that NG tube can be removed and he is agreeable. Review of Systems Review of Systems: All systems reviewed & are unremarkable except as noted in HPI and below PMFSH Past Medical History Medical History Basal cell carcinoma BMI 31.0-31.9,adult BMI 32.0-32.9,adult BMI greater than 30 Brain bleed CAD (coronary artery disease) Constipation Decreased ROM of left shoulder Edema of scrotum Elevated glucose GERD (gastroesophageal reflux disease) Hepatitis B Hyperlipidemia Hypertension Hypothyroid Myocardial infarct Paroxysmal atrial fibrillation Prediabetes Prostate CA Screening for prostate cancer Seizures Surgical History Surgical History H/O arthroscopy lt knee H/O prostatectomy 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 Yen Hx of local excision of skin lesion Family History Family History Father Malignant neoplasm of prostate Sibling Ovarian cancer Mother , epilepsy No problems noted. Sibling No problems noted. Social History Social History Smoking packs per day: 2 Smoking cigarettes per day: 40.0 Years smoked: 12 Smoking pack-years: 24.00 Smoking status: Former smoker Tobacco type: cigarettes Second hand tobacco smoke exposure: No Smoking end date: 09/23/70 Alcohol intake: current Alcohol use details: RARELY - 1/2 CASE BEER/YR Substance use: never Substance use type: does not use Lack of Transportation: No Lack of Food: Never True Current Housing: I Have Housing Concerned About Future Housin
[2023-09-24 18:14] LABS: Glucose Point of Care 139 mg/dl (65-105)
[2023-09-24] MEDS: HYDROmorphone HCL INJ (*CRX) 1 MG/ML SYR 0.5 MG IV PUSH (20:16)
[2023-09-24 23:40] LABS: Glucose Point of Care 129 mg/dl (65-105)
[2023-09-25] VITALS (27 sets, daily range): BP systolic 110–138; BP diastolic 61–90; PULSE 76–115; RESP 15–22; TEMP 36.5–37.2; O2SAT 95–100
[2023-09-25 04:36] LABS: Basophils Percent Auto 0.5 % (0.2-1.2); Eosinophils Absolute Auto 0.9 K/mm3 (0-0.3); Eosinophils Percent Auto 10.3 % (0-4.4); Hematocrit 27.8 % (42.0-52.0); Hemoglobin 8.3 g/dL (14.0-18.0); Immature Granulocyte Absolute 0.07 K/mm3 (0.00-0.031); Immature Granulocyte Percent A 0.9 % (0-0.5); Lymphocytes Absolute Auto 1.76 K/mm3 (0.9-3.2); Lymphocytes Percent Auto 21.4 % (18.3-44.2); Mean Corpuscular HGB Conc 29.9 g/dl (32-36); Mean Corpuscular Hemoglobin 29.4 pg (26-34); Mean Corpuscular Volume 98.6 fl (80-100); Mean Platelet Volume 10.2 fl (7.4-10.4); Monocytes Absolute Auto 0.7 K/mm3 (0.1-0.6); Neutrophils Absolute Auto 4.9 K/mm3 (1.3-6.7); Neutrophils Percent Auto 58.9 % (45.5-73.1); Platelet Count Result 344 k/mm3 (150-375); Red Blood Count 2.82 M/mm3 (4.6-6.20); Red Cell Distribution Width 16.2 % (11.5-14.5); White Blood Count 8.2 K/mm3 (4.5-10.0)
[2023-09-25 04:50] LABS: Alanine Aminotransferase 20 U/L (6-50); Albumin Level 3.2 g/dL (3.5-5.1); Alkaline Phosphatase 120 U/L (38-126); Anion Gap 12 mmol/L (8-16); Aspartate Amino Transferase 24 U/L (17-59); Bilirubin,Total 0.5 mg/dL (0.2-1.3); Blood Urea Nitrogen 99 mg/dL (9-20); Calcium 8.4 mg/dL (8.4-10.2); Carbon Dioxide 18 mmol/L (22-30); Chloride 120 mmol/L (98-107); Estimated CRCL calculation 24 ml/min; Estimated Glomerular Filt Rate 22; Glucose 117 mg/dL (65-110); Potassium 4.8 mmol/L (3.4-5.0); Sodium 150 mmol/L (137-145)
[2023-09-25 04:59] LABS: Phosphorus 4.8 mg/dL (2.5-4.5)
[2023-09-25] MEDS: LEVOTHYROXINE SODIUM INJ 100 MCG/5 ML VIAL 50 MCG IV PUSH (05:40)
[2023-09-25] MEDS: CENTRAL LINE FLUSH 10 ML IV PUSH ×3 (05:41→21:06)
--- NOTE | 2023-09-25 08:55 | WPDINTPN ---
Progress Note: A&P Assessment and Plan (1) Acute respiratory failure: Qualifiers: Respiratory failure complication: hypoxia and hypercapnia Qualified Code(s): J96.01 - Acute respiratory failure with hypoxia; J96.02 - Acute respiratory failure with hypercapnia Code(s): J96.00 - Acute respiratory failure, unspecified whether with hypoxia or hypercapnia Status: Acute Assessment and Plan: Acute hypoxic and hypercarbic respiratory failure. Failed multiple days off weaning trials -08/30: Tracheostomy placed 09/09 patient appears to have developed a leak in his tracheostomy cuff. NEW TRACHEOSTOMY was inserted by ENT on 09/09 09/10: Tolerated pressure support ventilation 14/8 all day, was placed on CMV mode overnight 09/11: Placed on pressure support ventilation 14/8 and tolerating for now will switch to CMV mode overnight 09/14: Patient did not tolerate pressure support ventilation as he was breathing only 8-9 times a minute, was placed on ASV mode and tolerated all day long. Placed on CMV overnight 09/15 patient tolerated pressure support ventilation 10/5 all day, was placed on CMV over 09/16: Total PSV 8/5 all day and through the night -will continue PSV 8/5 today too, patient gets tired, tachypneic, tachycardic will put him back on CMV mode 09/18: Patient was placed on CMV mode overnight after he got tired and was tachypneic on pressure support ventilation 8/5. Will give a break today -09/20: Did not tolerate pressure support ventilation or ASV -09/21 and 09/22: Tolerated pressure support ventilation 10/5 all day long, was placed on CMV mode overnight -09/23: Patient has been tolerating pressure support ventilation 10/5 and tolerating all day and is placed on CMV of during the night. -09/24: Tolerated PSV 10/5 all day and was placed overnight on CMV -will place patient on PSV 10/5 and try to see if he can tolerate 8/5. PEG tube placement today, 09/25/2022 (2) Sepsis: Qualifiers: Sepsis type: sepsis due to unspecified organism Sepsis acute organ dysfunction status: with acute organ dysfunction Severe sepsis acute organ dysfunction type: acute renal failure Acute renal failure type: unspecified Severe sepsis shock status: without septic shock Qualified Code(s): A41.9 - Sepsis, unspecified organism; R65.20 - Severe sepsis without septic shock; N17.9 - Acute kidney failure, unspecified Code(s): A41.9 - Sepsis, unspecified organism Status: Acute Assessment and Plan: Secondary to peritonitis. Patient also appears to have consolidation of the lower lobes on the CT done which could be aspiration versus atelectasis 08/06: Repeat CT scan of abdomen and pelvis showed gallbladder distention and also fluid collection likely exudative 08/06 patient underwent cholecystostomy tube placement and drainage of peritoneal abscess-cultures have been sent 08/06: IR placed drain in abscess and right and gallbladder which are in place Gallbladder drain culture grew Enterococcus Abscess drain culture grew prevotella Patient continues to have elevated WBC count and low-grade fevers 08/09 CT scan shows multiple peritoneal fluid collections. Although patient has drain in place, may not provide adequate source control due to multiple fluid locations. Recommend re-evaluation for abdominal washout due to persistent elevated WBC low-grade fevers. 08/10 repeat blood cultures sent 08/11 fungal blood culture were sent and patient was started on empiric micafungin 08/[address] of abdomen showed multiple intraperitoneal abscesses and worsening mass in right inguinal canal and right scrotum suggestive of infected hematoma 08/14 multiple (5) drains for placed in abdomen. Cultures growing Haemophilus parainfluenza 08/[address] scan: 1. Multiple abdominal abscesses with interval improvement status post percutaneous drainage placement.2. Small pleural effusions.3. Bibasilar airspace opacities, consistent with atel
[2023-09-25] MEDS: PANTOPRAZOLE SODIUM IV 40 MG VIAL IV PUSH ×2 (09:20→21:06)
[2023-09-25] MEDS: COLLAGENASE OINT 30 GM TUBE 1 APPLIC TOPICAL (09:20)
[2023-09-25] MEDS: TOLNAFTATE 1% POWDER 45 GM BTL 1 APPLIC TOPICAL ×2 (10:45→21:06)
--- NOTE | 2023-09-25 11:04 | PCFNICU ---
ICU Rounding Note: Pt current nutrition is NPO. Nutrition recommendation: Vital AF 1.2 at 70 ml/hr. Last recorded weight is 116.7 kg. Bowel Motility:+BM reported 1/3 Labs Reviewed:Glu 117, GFR 22, BUN 99, Cr 2.8,Alb 3.2, Na 150 Meds Noted:Sodium Bicarbonate, Protonix Skin: WNL Additional Notes: Patient current with Trach. NPO for PEG placement today. Patient has been tolerating tube feedings. Recommend increasing to goal rate of 70 ml/hr of Vital AF 1.2 providing 1848 kcals/116 gms protein/1249 ml water. Flush increasing from 60 ml to 120 ml due to Na 150. Agree with diet orders. Following daily in ICU rounds. Will monitor weight, labs, skin, meds, TPN every Saturday and Saturday.
[2023-09-25 11:20] LABS: Glucose Point of Care 139 mg/dl (65-105)
--- NOTE | 2023-09-25 13:42 | SUR.OPER ---
Sedation to be administered and monitored by Glazing Superintendent and PHYSICIAN UNDERWRITER Maris.
[2023-09-25] MEDS: PROPOFOL IV EMULSION 100 ML 3.5 MG IV CONT (13:44)
--- NOTE | 2023-09-25 13:45 | PM.PNNEP ---
Progress Note: A&P Assessment and Plan (1) MOISÉS (acute kidney injury): Code(s): N17.9 - Acute kidney failure, unspecified Status: Acute Assessment and Plan: multiple episodes noted since admission slow improvement noted multifactorial issues present: prerenal factors previous relative hypotension (sometimes as low as 80s systolic) previous ongoing use of ARB (losartan) previous IV ibuprofen use contrast exposure (CT scan on 08/04/23) recurrent infection/sepsis (suspect major component) evaluation during this hospital stay: renal ultrasound okay urine electrolytes prerenal urine eosinophils negative CPK mildly elevated (but not likely to affect kidney function) still with reasonable urine output (without use of diuretics) metabolic acidosis noted - on sodium bicarbonate per tube no absolute need for [employer]/dialysis at this time if BUN continues to worsen, dialysis would be a consideration if there is a concern for uremia... continue to follow repeat labs and UOP (2) Hypernatremia: Code(s): E87.0 - Hyperosmolality and hypernatremia Status: Acute Assessment and Plan: presumably due to free water deficit however, use of sodium bicarbonate for metabolic acidosis could be contributing consider backing off on oral bicarbonate since renal function improving increase free water flushes and titrate as needed (3) Sepsis: Qualifiers: Sepsis type: sepsis due to unspecified organism Sepsis acute organ dysfunction status: with acute organ dysfunction Severe sepsis acute organ dysfunction type: acute renal failure Acute renal failure type: unspecified Severe sepsis shock status: without septic shock Qualified Code(s): A41.9 - Sepsis, unspecified organism; R65.20 - Severe sepsis without septic shock; N17.9 - Acute kidney failure, unspecified Code(s): A41.9 - Sepsis, unspecified organism Status: Acute Assessment and Plan: remains hemodynamically stable off all vasopressor therapy multiple issues/etiologies: recurrent abdominal abscesses as noted by imaging to date peritonitis (see recent ascites fluid cultures) abdominal drains in place on antibiotics (4) Metabolic acidosis: Code(s): E87.20 - Acidosis, unspecified Status: Acute Assessment and Plan: presumably due to MOISÉS/ARF and uremia lactic acid in normal range wean sodium bicarbonate as tolerated (5) Acute respiratory failure: Qualifiers: Respiratory failure complication: hypoxia and hypercapnia Qualified Code(s): J96.01 - Acute respiratory failure with hypoxia; J96.02 - Acute respiratory failure with hypercapnia Code(s): J96.00 - Acute respiratory failure, unspecified whether with hypoxia or hypercapnia Status: Acute Assessment and Plan: s/p tracheostomy for prolonged ventilator weaning complicated by weakness and severe deconditioning weaning as tolerated continue supportive therapy (6) Pelvic abscess in male: Code(s): K65.1 - Peritoneal abscess Status: Acute Assessment and Plan: as noted by recent CT imaging s/p drainage catheter placement by IR on antibiotics Surgery managing (7) Decubitus ulcer: Code(s): L89.90 - Pressure ulcer of unspecified site, unspecified stage Status: Acute Assessment and Plan: s/p debridement and diverting colostomy local wound care Surgery following (8) Anemia: Qualifiers: Anemia type: other cause Other causes of anemia: chronic disease, other Qualified Code(s): D63.8 - Anemia in other chronic diseases classified elsewhere Code(s): D64.9 - Anemia, unspecified Status: Acute Assessment and Plan: due to operative interventions, acute illness and MOISÉS getting Epogen 3 times a week follow trend of H/H Will continue to follow. Subjective Date/time seen: 09/25/23 13:45 Interval histo
--- NOTE | 2023-09-25 13:45 | P.PNNP_ITS ---
Progress Note: A&P Assessment and Plan (1) MOISÉS (acute kidney injury): Code(s): N17.9 - Acute kidney failure, unspecified Status: Acute Assessment and Plan: * multiple episodes noted since admission * slow improvement noted * multifactorial issues present: * prerenal factors * previous relative hypotension (sometimes as low as 80s systolic) * previous ongoing use of ARB (losartan) * previous IV ibuprofen use * contrast exposure (CT scan on 08/04/23) * recurrent infection/sepsis (suspect major component) * evaluation during this hospital stay: * renal ultrasound okay * urine electrolytes prerenal * urine eosinophils negative * CPK mildly elevated (but not likely to affect kidney function) * still with reasonable urine output (without use of diuretics) * metabolic acidosis noted - on sodium bicarbonate per tube * no absolute need for [employer]/dialysis at this time * if BUN continues to worsen, dialysis would be a consideration if there is a concern for uremia... * continue to follow repeat labs and UOP (2) Hypernatremia: Code(s): E87.0 - Hyperosmolality and hypernatremia Status: Acute Assessment and Plan: * presumably due to free water deficit * however, use of sodium bicarbonate for metabolic acidosis could be contributing * consider backing off on oral bicarbonate since renal function improving * increase free water flushes and titrate as needed (3) Sepsis: Qualifiers: Sepsis type: sepsis due to unspecified organism Sepsis acute organ dysfunction status: with acute organ dysfunction Severe sepsis acute organ dysfunction type: acute renal failure Acute renal failure type: unspecified Severe sepsis shock status: without septic shock Qualified Code(s): A41.9 - Sepsis, unspecified organism; R65.20 - Severe sepsis without septic shock; N17.9 - Acute kidney failure, unspecified Code(s): A41.9 - Sepsis, unspecified organism Status: Acute Assessment and Plan: * remains hemodynamically stable * off all vasopressor therapy * multiple issues/etiologies: * recurrent abdominal abscesses as noted by imaging to date * peritonitis (see recent ascites fluid cultures) * abdominal drains in place * on antibiotics (4) Metabolic acidosis: Code(s): E87.20 - Acidosis, unspecified Status: Acute Assessment and Plan: * presumably due to MOISÉS/ARF and uremia * lactic acid in normal range * wean sodium bicarbonate as tolerated (5) Acute respiratory failure: Qualifiers: Respiratory failure complication: hypoxia and hypercapnia Qualified Code(s): J96.01 - Acute respiratory failure with hypoxia; J96.02 - Acute respiratory failure with hypercapnia Code(s): J96.00 - Acute respiratory failure, unspecified whether with hypoxia or hypercapnia Status: Acute Assessment and Plan: * s/p tracheostomy for prolonged ventilator weaning * complicated by weakness and severe deconditioning * weaning as tolerated * continue supportive therapy (6) Pelvic abscess in male: Code(s): K65.1 - Peritoneal abscess Status: Acute Assessment and Plan: * as noted by recent CT imaging * s/p drainage catheter placement by IR * on antibiotics * Surgery managing (7) Decubitus ulcer: Code(s): L89.90 - Pressure ulcer of unspecified site, unspecified stage Status: Acute Assessment and Plan: * s/p debridement and diverting colostomy * local wound care * Surgery following (8) Anemia:
[2023-09-25] MEDS: fentaNYL CITRATE INJ (*CRX) 100 MCG/2 ML VIAL 50 MCG IV PUSH (14:00)
--- NOTE | 2023-09-25 14:02 | PM.PNGS ---
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 He was tolerating tube feedings, but they are on hold for PEG placement today. May resume tube feeding when appropriate if PEG placement is successful. (2) S/P partial colectomy: Code(s): Z90.49 - Acquired absence of other specified parts of digestive tract Status: Acute Assessment and Plan: Colostomy functioning well. Incision healing well. (3) Abdominal abscess: Status: Acute Assessment and Plan: Both percutaneous drains with output steadily decreasing. Continue to monitor. Currently on IV Avycaz. 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 Continue Santyl dressing changes. (5) Respiratory failure: Qualifiers: Chronicity: chronic Respiratory failure complication: hypercapnia Qualified Code(s): J96.12 - Chronic respiratory failure with hypercapnia Code(s): J96.90 - Respiratory failure, unspecified, unspecified whether with hypoxia or hypercapnia Status: Acute Assessment and Plan: Patient tolerating pressure support, management per Glass Tube Bender. (6) Protein-calorie malnutrition, severe: Code(s): E43 - Unspecified severe protein-calorie malnutrition Status: Acute Assessment and Plan: GI attempting percutaneous G-tube placement this afternoon. Will plan to resume tube feedings when appropriate with a goal rate of 60 mL/hr. (7) History of tracheostomy: Code(s): Z98.890 - Other specified postprocedural states Status: Acute Plan I have discussed the patient's case and plan of care with Dr. Armijo. Subjective Subjective Date/Time Seen: 09/25/23 12:02 Patient reports: afebrile Interval history: Patient seen in ICU with his daughter at the bedside. Chart reviewed since last seen. GI was consulted for PEG placement. Tube feedings are on hold for his procedure this afternoon. Patient is asleep when entering the room but easily aroused by his name. He answers yes or no questions appropriately. His daughter said he has been communicating and pretty awake earlier in the day. He denies any abdominal pain or any discomfort at this time. Perc drains with decreasing output. Ostomy functioning well with stool output improved. Per staff his rectal wound is improving, no concerns. Review of Systems Review of Systems: ROS unobtainable: Yes unobtainable due to medical condition Exam Const: General: comfortable and no acute distress Orientation/consciousness: lethargic Limitations: physical limitations and other limitations (tracheostomy, communication limitations) Neck: Neck: tracheostomy present GI: Inspection: incision (abdominal and R groin incision healing well, no erythema) and other (Colostomy functioning well with madsen stool in bag and stoma pink and viable) GI Palp: Yes Soft to palpation, No Tenderness to palpation present (GI), No Guarding due to palpation present (GI), No Hernia present, No Ascites present and No Rebound tenderness present Auscultation: normal bowel sounds Other: LLQ perc drains x 2 with green drainage in bags, output decreasing : Male General Exam: No hernia (Groin incision healing well) Scrotum: edematous (improving) diffuse Urinary Catheter: Urinary Catheter: patent and draining Extrem: General: other (bilateral lower extremity edema improved) Objective Data Vital Signs Vital Signs: Vital Signs - 24 hr 09/24/23 14:21 09/24/23 16:00 09/24/23 16:00 Temperature 98.4 F Pulse Rate 91 92 Respiratory Rate 22 H Blood Pressure 126/89 Pulse Oximetry 98 98 Oxygen Delivery Mechanical Ventilation Fraction of Inspired Oxygen 30 30 09/24/23 16:00 09/24/23 17:44 09/24/23 17:
[2023-09-25] MEDS: SODIUM BICARBONATE TAB 650 MG TABLET FEED TUBE (18:29)
[2023-09-25 18:35] LABS: Glucose Point of Care 112 mg/dl (65-105)
--- NOTE | 2023-09-25 19:18 | PM.IMPN ---
Progress Note: A&P Assessment and Plan (1) Acute respiratory failure: Qualifiers: Respiratory failure complication: hypoxia and hypercapnia Qualified Code(s): J96.01 - Acute respiratory failure with hypoxia; J96.02 - Acute respiratory failure with hypercapnia Code(s): J96.00 - Acute respiratory failure, unspecified whether with hypoxia or hypercapnia Status: Acute Assessment and Plan: Patient admitted for elective repair of a large right inguinal hernia on 08/02/23. Post-operatively, he developed ileus, peritonitis, AFib/RVR, MOISÉS and HoTN. He was moved to the ICU on 08/06 for HoTN. On the morning of 08/15, patient developed acute respiratory distress. ABG 7.37/62/58 so BiPAP ordered but repeat ABG 7.15/101/91 so patient intubated 08/15. CXR reviewed showing diffuse lung disease c/w edema vs PNA vs atelectasis Trach placed 08/30; He remained on mechanical ventilation Trach had to be replaced on 09/09 ENT performed tracheoscopy 09/13 showing the trachea does curve into the anterior tracheal wall but patent Tolerating trach trials. Appreciate chemical sprayer and ENT input. Wean vent as tolerated (2) Sepsis: Qualifiers: Sepsis type: sepsis due to unspecified organism Sepsis acute organ dysfunction status: with acute organ dysfunction Severe sepsis acute organ dysfunction type: acute renal failure Acute renal failure type: unspecified Severe sepsis shock status: without septic shock Qualified Code(s): A41.9 - Sepsis, unspecified organism; R65.20 - Severe sepsis without septic shock; N17.9 - Acute kidney failure, unspecified Code(s): A41.9 - Sepsis, unspecified organism Status: Acute Assessment and Plan: Currently being treated for cholecystitis + pelvic abscesses UCx 08/05, 08/06, 08/16 negative GB Cx 08/06 growing enterococcus but unable to perform sensitivities; treated with a course of linezolid stopped 08/19. Abscess Cx 08/06 Prevotella that is beta-lactamase positive BCx 08/06, 08/10 and 08/16 negative. MRSA nasal swab 08/[address] A/P 08/13 showing multiple intraperitoneal abscesses similar to 08/09 with worsening mass involving the right inguinal canal and right scrotum. 08/14: Multiple Abd drains placed with culture growing H. parainfluenza and prevotella (no sensitivities but beta lactamase positive) CT A/P 08/18 slight increase in fluid collection adjacent to LLQ pigtail drain measuring 3 cm, other fluid collections are either stable or slightly smaller in size, stable right groin infected hematoma, cystitis versus bladder wall thickening, Weathers catheter in place but balloon not visualized and mild fecal impaction. Tx with meropenem, linezolid. Micafungin added 08/11 he completed a course of linezolid stopped 08/19. meropenem changed to Cefepime and Flagyl. Flagyl and Cefepime stopped 08/23 Micafungin stopped 08/25 after 14 days course Zosyn started 08/23 through 08/26 WBC remaining normal, fevers resolved so All abx stopped on 08/26 -------- Recurrent fevers so re-cultured and Abx resumed 09/01 BCx 09/01, 09/07 negative Sputum Cx 09/01 negative UCx 09/01 negative; UCx 09/07 growing 10-49K ketan parapsilosis UE/LE Dopplers negative for DVT 09/07 Paracentesis 09/09 returning purulent fluid with cx growing Bacteroides, klebsiella pneumoniae. CT A/P 09/11 showing LLQ abscess 14cm and Pelvic abscess 12cm. Abd and pelvic drains placed 09/11: -- 1st cx: klebsiella pneumoniae CRE -- 2nd cx: Yeast and Klebsiella pneumoniae CRE Started on Flagyl and Rocephin 09/11 but Rocephin changed to Avycaz on 09/15; he remains on Flagyl Scrotal US 09/12 showing 1cm left epididymis mass likely benign and small left hydrocele with septation. Not felt to have scrotal abscess Diflucan started 09/07 and stopped 09/12 CT A/P 09/18 showing decompressed abscess cavities. WBC normal and fevers resolved. Continue IV abx with Avycaz; Flagyl stopped 09/23/23 (3) Pelvic abscess in male: Code(s): K
[2023-09-25 20:21] LABS: Glucose Point of Care 116 mg/dl (65-105)
[2023-09-25 23:11] LABS: Glucose Point of Care 111 mg/dl (65-105)
[2023-09-26] VITALS (23 sets, daily range): BP systolic 132–152; BP diastolic 75–92; PULSE 78–107; RESP 15–24; TEMP 36.8–37.2; O2SAT 94–100
[2023-09-26 04:55] LABS: Basophils Percent Auto 0.4 % (0.2-1.2); Eosinophils Absolute Auto 0.9 K/mm3 (0-0.3); Eosinophils Percent Auto 8.8 % (0-4.4); Hematocrit 29.7 % (42.0-52.0); Hemoglobin 8.9 g/dL (14.0-18.0); Immature Granulocyte Absolute 0.07 K/mm3 (0.00-0.031); Immature Granulocyte Percent A 0.7 % (0-0.5); Lymphocytes Absolute Auto 1.96 K/mm3 (0.9-3.2); Lymphocytes Percent Auto 20.4 % (18.3-44.2); Mean Corpuscular Hemoglobin 29.7 pg (26-34); Monocytes Absolute Auto 0.6 K/mm3 (0.1-0.6); Monocytes Percent Auto 6.6 % (2.6-8.5); Neutrophils Absolute Auto 6.1 K/mm3 (1.3-6.7); Neutrophils Percent Auto 63.1 % (45.5-73.1); Platelet Count Result 367 k/mm3 (150-375); Red Cell Distribution Width 16.2 % (11.5-14.5); White Blood Count 9.6 K/mm3 (4.5-10.0)
[2023-09-26 05:08] LABS: Alanine Aminotransferase 20 U/L (6-50); Albumin Level 3.6 g/dL (3.5-5.1); Alkaline Phosphatase 120 U/L (38-126); Anion Gap 11 mmol/L (8-16); Aspartate Amino Transferase 30 U/L (17-59); Bilirubin,Total 0.6 mg/dL (0.2-1.3); Blood Urea Nitrogen 89 mg/dL (9-20); Carbon Dioxide 19 mmol/L (22-30); Chloride 122 mmol/L (98-107); Estimated CRCL calculation 27 ml/min; Estimated Glomerular Filt Rate 25; Glucose 134 mg/dL (65-110); Magnesium 2.4 mg/dL (1.6-2.3); Phosphorus 4.4 mg/dL (2.5-4.5); Potassium 4.8 mmol/L (3.4-5.0); Sodium 152 mmol/L (137-145)
[2023-09-26 05:27] LABS: Alveolar/Arterial O2 Gradient 49.6 mmHg; Base Excess ABG -6.4 mEq/l (+/-2.0); Carboxyhemoglobin 0.2 % THb (0-2.0); Fractional Inspired Oxygen 30 %; HCO3 ABG 17.8 mEq/l (22.0-26.0); Methemoglobin ABG 0.3 %THb (0-1.5); Oxygen Saturation ABG 98.5 % (95.0-100.0); Oxyhemoglobin 97.1 % THb (90.0-100.0); PCO2 ABG 31.1 mmHg (35.0-45.0); PO2 ABG 127.8 mmHg (80.0-100.0); PO2 FiO2 Ratio Arterial Blood 4.26 %; Reduced Hemoglobin 2.4 %THb (0-5.0); Total Hemoglobin 10.8 g/dL (12.0-18.0); pH ABG 7.376 (7.350-7.450)
[2023-09-26] MEDS: LEVOTHYROXINE SODIUM INJ 100 MCG/5 ML VIAL 50 MCG IV PUSH (06:24)
[2023-09-26] MEDS: CENTRAL LINE FLUSH 10 ML IV PUSH ×3 (06:27→20:45)
--- NOTE | 2023-09-26 07:05 | WPDGIPROGNO ---
Progress Note: A&P Assessment and Plan (1) S/P partial colectomy: Code(s): Z90.49 - Acquired absence of other specified parts of digestive tract Status: Acute Assessment and Plan: He had diverting colostomy due to an abscess in the perirectal area. 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 This limits the available area for placement of percutaneous gastrostomy tube. I explained to the patient and his family member that we may or may not be able to place the gastrostomy tube but will not know until he is sedated. (3) History of tracheostomy: Code(s): Z98.890 - Other specified postprocedural states Status: Acute (4) Protein-calorie malnutrition, severe: Code(s): E43 - Unspecified severe protein-calorie malnutrition Status: Acute Assessment and Plan: He has been getting tube feedings by NG tube. (5) Paroxysmal atrial fibrillation: Code(s): I48.0 - Paroxysmal atrial fibrillation Status: Chronic Assessment and Plan: He had been on Xarelto prior to admission. Plan EGD with percutaneous gastrostomy tube placement tomorrow. Will hold Lovenox and aspirin until after the procedure. He is already on antibiotics. Subjective Date/time seen: 09/26/23 07:05 his G-tube site looks good. Tolerating tube feedings Exam Const: General: alert and overweight Nutritional Appearance: overweight Orientation/consciousness: patient oriented x3 Resp: Auscultation: clear to auscultation bilaterally Cardio: Rhythm: regular rhythm GI: Inspection: scar ( Right lower quadrant scar and also a linear scar in mid abdomen towards t) and other ( Colostomy left mid abdomen.) GI Palp: No abdominal tenderness and Yes Soft to palpation Auscultation: normal bowel sounds Other: G-tube site looks good. Outer bolster is still at 3.5 cm leana Neuro: General: patient oriented x3 Objective Data Vital Signs Vital Signs: Vital Signs - 24 hr 09/25/23 07:22 09/25/23 08:57 09/25/23 10:00 Temperature 36.8 C 37.1 C Pulse Rate 96 93 80 Respiratory Rate 22 H 22 H Blood Pressure 116/72 123/79 Pulse Oximetry 97 98 99 Oxygen Delivery Mechanical Ventilation Fraction of Inspired Oxygen 30 09/25/23 11:04 09/25/23 08:00 09/25/23 10:00 Temperature Pulse Rate 96 91 91 Respiratory Rate Blood Pressure Pulse Oximetry 99 Oxygen Delivery Mechanical Ventilation Fraction of Inspired Oxygen 30 09/25/23 12:00 09/25/23 12:00 09/25/23 12:00 Temperature 37.2 C Pulse Rate 90 89 Respiratory Rate 22 H Blood Pressure 119/81 Pulse Oximetry 97 Oxygen Delivery Fraction of Inspired Oxygen 30 09/25/23 08:00 09/25/23 08:00 09/25/23 13:40 Temperature Pulse Rate 88 Respiratory Rate Blood Pressure Pulse Oximetry 98 97 Oxygen Delivery Mechanical Ventilation Mechanical Ventilation Fraction of Inspired Oxygen 30 30 30 09/25/23 13:44 09/25/23 13:30 09/25/23 12:00 Temperature Pulse Rate 94 94 Respiratory Rate 19 19 Blood Pressure 121/74 Pulse Oximetry 97 95 Oxygen Delivery Mechanical Ventilation Mechanical Ventilation Fraction of Inspired Oxygen 30 09/25/23 14:00 09/25/23 14:09 09/25/23 14:14 Temperature 37.1 C Pulse Rate 94 104 H 85 Respiratory Rate 18 16 15 Blood Pressure 116/83 128/90 116/83 Pulse Oximetry 100 99 100 Oxygen Delivery Mechanical Ventilation Mechanical Ventilation Fraction of Inspired Oxygen 09/25/23 14:19 09/25/23 16:00 09/25/23 14:00 Temperature 36.9 C Pulse Rate 101 H 99 94 Respiratory Rate 17 20 Blood Pressure 125/78 133/84 Pulse Oximetry 100 99 Oxygen Delivery Mechanical Ventilation Fraction of Inspired Oxygen 09/25/23 16:00 09/25/23 16:00 01
--- NOTE | 2023-09-26 07:56 | PM.PNGS ---
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 Apparently still tires and needs mechanical ventilator from time to time. (4) History of tracheostomy: Code(s): Z98.890 - Other specified postprocedural states Status: Acute Assessment and Plan: Working well (5) Protein-calorie malnutrition, severe: Code(s): E43 - Unspecified severe protein-calorie malnutrition Status: Acute Assessment and Plan: Off TPN and receiving tube feeds at goal rate of 60 cc an hour (6) MOISÉS (acute kidney injury): Code(s): N17.9 - Acute kidney failure, unspecified Status: Acute Assessment and Plan: Improving. Creatinine and BUN continue to decrease. Good urine output. 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 No fecal material per rectum. Subjective Subjective Date/Time Seen: 09/26/23 07:56 Patient reports: tolerating liquids well (Tube feeds at 60 cc an hour per G-tube), bowel movement (Per colostomy), afebrile and other (Sleeping, apparently slept well all night) Review of Systems Review of Systems: ROS unobtainable: Yes unobtainable due to mental status Exam Const: General: comfortable, lethargic, patient obtunded (Somnolent) and edematous (Less edematous) GI: Inspection: non-distended, incision (Dry and healing) and other (Greenish fluid from both pigtail catheters, #1 Has increased volume) GI Palp: Yes Soft to palpation, No Tenderness to palpation present (GI), No Guarding due to palpation present (GI), No Hernia present and No Palpable mass present Auscultation: normal bowel sounds : Male General Exam: Yes edema Penis: Yes edematous Scrotum: edematous (No change) Urinary Catheter: Urinary Catheter: patent and draining Neuro: General: patient obtunded (Sleeping deeply, did not try to awaken.) Objective Data Vital Signs Vital Signs: Vital Signs - 24 hr 09/25/23 08:57 09/25/23 10:00 09/25/23 11:04 Temperature 37.1 C Pulse Rate 93 80 96 Respiratory Rate 22 H Blood Pressure 123/79 Pulse Oximetry 98 99 99 Oxygen Delivery Mechanical Ventilation Mechanical Ventilation Fraction of Inspired Oxygen 30 30 09/25/23 08:00 09/25/23 10:00 09/25/23 12:00 Temperature 37.2 C Pulse Rate 91 91 90 Respiratory Rate 22 H Blood Pressure 119/81 Pulse Oximetry 97 Oxygen Delivery Fraction of Inspired Oxygen 09/25/23 12:00 09/25/23 12:00 09/25/23 08:00 Temperature Pulse Rate 89 Respiratory Rate Blood Pressure Pulse Oximetry Oxygen Delivery Fraction of Inspired Oxygen 30 30 09/25/23 08:00 09/25/23 13:40 09/25/23 13:44 Temperature Pulse Rate 88 94 Respiratory Rate 19 Blood Pressure Pulse Oximetry 98 97 Oxygen Delivery Mechanical Ventilation Mechanical Ventilation Fraction of Inspired Oxygen 30 30 09/25/23 13:30 09/25/23 12:00 09/25/23 14:00 Temperature 37.1 C Pulse Rate 94 94 Respiratory Rate 19 18 Blood Pressure 121/74 116/83 Pulse Oximetry 97 95 100 Oxygen Delivery Mechanical Ventilation Mechanical Ventilation Fraction of Inspired Oxygen 09/25/23 14:09 09/25/23 14:1
--- NOTE | 2023-09-26 08:10 | P.PNINT_ITS ---
Progress Note: A&P Assessment and Plan (1) Acute respiratory failure: Qualifiers: Respiratory failure complication: hypoxia and hypercapnia Qualified Code(s): J96.01 - Acute respiratory failure with hypoxia; J96.02 - Acute respiratory failure with hypercapnia Code(s): J96.00 - Acute respiratory failure, unspecified whether with hypoxia or hypercapnia Status: Acute Assessment and Plan: Acute hypoxic and hypercarbic respiratory failure. Failed multiple days off weaning trials -08/30: Tracheostomy placed 09/09 patient appears to have developed a leak in his tracheostomy cuff. NEW TRACHEOSTOMY was inserted by ENT on 09/09 09/10: Tolerated pressure support ventilation 14/8 all day, was placed on CMV mode overnight 09/11: Placed on pressure support ventilation 14/8 and tolerating for now will switch to CMV mode overnight 09/14: Patient did not tolerate pressure support ventilation as he was breathing only 8-9 times a minute, was placed on ASV mode and tolerated all day long. Placed on CMV overnight 09/15 patient tolerated pressure support ventilation 10/5 all day, was placed on CMV over 09/16: Total PSV 8/5 all day and through the night -will continue PSV 8/5 today too, patient gets tired, tachypneic, tachycardic will put him back on CMV mode 09/18: Patient was placed on CMV mode overnight after he got tired and was tachypneic on pressure support ventilation 8/5. Will give a break today -09/20: Did not tolerate pressure support ventilation or ASV -09/21 and 09/22: Tolerated pressure support ventilation 10/5 all day long, was placed on CMV mode overnight -09/23: Patient has been tolerating pressure support ventilation 10/5 and tolerating all day and is placed on CMV of during the night. -09/24: Tolerated PSV 10/5 all day and was placed overnight on CMV -09/[address] patient on PSV 10/5 and try to see if he can tolerate 8/5. PEG tube placement today, 09/25/202209/[address] patient PSV 10/5 and titrate pressure as tolerated (2) Sepsis: Qualifiers: Sepsis type: sepsis due to unspecified organism Sepsis acute organ dysfunction status: with acute organ dysfunction Severe sepsis acute organ dysfunction type: acute renal failure Acute renal failure type: unspecified Severe sepsis shock status: without septic shock Qualified Code(s): A41.9 - Sepsis, unspecified organism; R65.20 - Severe sepsis without septic shock; N17.9 - Acute kidney failure, unspecified Code(s): A41.9 - Sepsis, unspecified organism Status: Acute Assessment and Plan: Secondary to peritonitis. Patient also appears to have consolidation of the lower lobes on the CT done which could be aspiration versus atelectasis 08/06: Repeat CT scan of abdomen and pelvis showed gallbladder distention and also fluid collection likely exudative 08/06 patient underwent cholecystostomy tube placement and drainage of peritoneal abscess-cultures have been sent 08/06: IR placed drain in abscess and right and gallbladder which are in place Gallbladder drain culture grew Enterococcus Abscess drain culture grew prevotella Patient continues to have elevated WBC count and low-grade fevers 08/09 CT scan shows multiple peritoneal fluid collections. Although patient has drain in place, may not provide adequate source control due to multiple fluid locations. Recommend re-evaluation for abdominal washout due to persistent elevated WBC low-grade fevers. 08/10 repeat blood cultures sent 08/11 fungal blood culture were sent and patient was started on empiric micafungin 08/[address] of abdomen showed multiple intraperitoneal abscesses and worsening mass in right ingui
[2023-09-26] MEDS: TOLNAFTATE 1% POWDER 45 GM BTL 1 APPLIC TOPICAL ×2 (08:20→20:45)
[2023-09-26] MEDS: COLLAGENASE OINT 30 GM TUBE 1 APPLIC TOPICAL (08:20)
[2023-09-26] MEDS: PANTOPRAZOLE SODIUM IV 40 MG VIAL IV PUSH ×2 (08:21→20:45)
[2023-09-26] MEDS: EPOETIN ALFA-EPBX 10,000 UNITS/ML VIAL 10000 UNITS SUB-Q (08:21)
[2023-09-26] MEDS: ENOXAPARIN 30 MG/0.3 ML SYRINGE SUB-Q (08:21)
[2023-09-26] MEDS: SODIUM BICARBONATE TAB 650 MG TABLET FEED TUBE ×2 (08:22→17:38)
--- NOTE | 2023-09-26 10:41 | PCFNICU ---
ICU Rounding Note: Pt current nutrition is Vital AF 1.2 at 70 ml/hr. Last recorded weight is 120.6 kg. Bowel Motility:+BM reported 09/26 Labs Reviewed:Glu 134, BUN 89, CR 2.5,Na 152 Meds Noted:Protonix, Synthroid, Sodium Bicarbonate tab. Skin:scrotum 2+ pitting edema. Additional Notes: Patient current with Trach and PEG. Patient is tolerating tube feedings of Vital AF 1.2 at 70 ml/hr, which is providing 1848 kcals/116 gms protein/1249 ml water meeting 92% caloric needs at 25 kcal/kg and 100% protein needs at 1.2-1.4 gm/kg IBW. Flush is 200 ml due to NA 152. Agree with diet orders. Following daily in ICU rounds. Will monitor weight, labs, skin, meds, TPN every Saturday and Saturday.
[2023-09-26 12:18] LABS: Glucose Point of Care 145 mg/dl (65-105)
--- NOTE | 2023-09-26 12:50 | PM.PNNEP ---
Progress Note: A&P Assessment and Plan (1) MOISÉS (acute kidney injury): Code(s): N17.9 - Acute kidney failure, unspecified Status: Acute Assessment and Plan: multiple episodes noted since admission slow improvement noted multifactorial issues present: prerenal factors previous relative hypotension (sometimes as low as 80s systolic) previous ongoing use of ARB (losartan) previous IV ibuprofen use contrast exposure (CT scan on 08/04/23) recurrent infection/sepsis (suspect major component) evaluation during this hospital stay: renal ultrasound okay urine electrolytes prerenal urine eosinophils negative CPK mildly elevated (but not likely to affect kidney function) still with reasonable urine output (without use of diuretics) metabolic acidosis noted - on sodium bicarbonate per tube continue to follow repeat labs and UOP (2) Hypernatremia: Code(s): E87.0 - Hyperosmolality and hypernatremia Status: Acute Assessment and Plan: presumably due to free water deficit however, use of sodium bicarbonate for metabolic acidosis could be contributing backing off on oral bicarbonate since renal function improving increase free water flushes and titrate as needed may need to consider D5W IVFs... (3) Sepsis: Qualifiers: Sepsis type: sepsis due to unspecified organism Sepsis acute organ dysfunction status: with acute organ dysfunction Severe sepsis acute organ dysfunction type: acute renal failure Acute renal failure type: unspecified Severe sepsis shock status: without septic shock Qualified Code(s): A41.9 - Sepsis, unspecified organism; R65.20 - Severe sepsis without septic shock; N17.9 - Acute kidney failure, unspecified Code(s): A41.9 - Sepsis, unspecified organism Status: Acute Assessment and Plan: remains hemodynamically stable off all vasopressor therapy multiple issues/etiologies: recurrent abdominal abscesses as noted by imaging to date peritonitis (see recent ascites fluid cultures) abdominal drains in place on antibiotics (4) Metabolic acidosis: Code(s): E87.20 - Acidosis, unspecified Status: Acute Assessment and Plan: improving presumably due to MOISÉS/ARF and uremia lactic acid in normal range wean sodium bicarbonate as tolerated (5) Acute respiratory failure: Qualifiers: Respiratory failure complication: hypoxia and hypercapnia Qualified Code(s): J96.01 - Acute respiratory failure with hypoxia; J96.02 - Acute respiratory failure with hypercapnia Code(s): J96.00 - Acute respiratory failure, unspecified whether with hypoxia or hypercapnia Status: Acute Assessment and Plan: s/p tracheostomy for prolonged ventilator weaning complicated by weakness and severe deconditioning weaning as tolerated continue supportive therapy (6) Pelvic abscess in male: Code(s): K65.1 - Peritoneal abscess Status: Acute Assessment and Plan: as noted by recent CT imaging s/p drainage catheter placement by IR on antibiotics Surgery managing (7) Decubitus ulcer: Code(s): L89.90 - Pressure ulcer of unspecified site, unspecified stage Status: Acute Assessment and Plan: s/p debridement and diverting colostomy local wound care Surgery following (8) Anemia: Qualifiers: Anemia type: other cause Other causes of anemia: chronic disease, other Qualified Code(s): D63.8 - Anemia in other chronic diseases classified elsewhere Code(s): D64.9 - Anemia, unspecified Status: Acute Assessment and Plan: due to operative interventions, acute illness and MOISÉS getting Epogen 3 times a week follow trend of H/H Will continue to follow. Subjective Date/time seen: 09/26/23 12:50 Interval history: Follow-up for acute kidney injury/acute renal failure. BUN and creatinine continue to improve with good
--- NOTE | 2023-09-26 12:57 | P.PNIM_ITS ---
Progress Note: A&P Assessment and Plan (1) Acute respiratory failure: Qualifiers: Respiratory failure complication: hypoxia and hypercapnia Qualified Code(s): J96.01 - Acute respiratory failure with hypoxia; J96.02 - Acute respiratory failure with hypercapnia Code(s): J96.00 - Acute respiratory failure, unspecified whether with hypoxia or hypercapnia Status: Acute Assessment and Plan: Patient admitted for elective repair of a large right inguinal hernia on 08/02/23. Post-operatively, he developed ileus, peritonitis, AFib/RVR, MOISÉS and HoTN. He was moved to the ICU on 08/06 for HoTN. On the morning of 08/15, patient developed acute respiratory distress. ABG 7.37/62/58 so BiPAP ordered but repeat ABG 7.15/101/91 so patient intubated 08/15. CXR reviewed showing diffuse lung disease c/w edema vs PNA vs atelectasis Trach placed 08/30; Trach had to be replaced on 09/09 ENT performed tracheoscopy 09/13 showing the trachea does curve into the anterior tracheal wall but patent Remains on MV. Tolerating trach trials. 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 Wean vent as tolerated (2) Sepsis: Qualifiers: Sepsis type: sepsis due to unspecified organism Sepsis acute organ dysf unction status: with acute organ dysfunction Severe sepsis acute organ dysfunction type: acute renal failure Acute renal failure type: unspecified Severe sepsis shock status: without septic shock Qualified Code(s): A41.9 - Sepsis, unspecified organism; R65.20 - Severe sepsis without septic shock; N17.9 - Acute kidney failure, unspecified Code(s): A41.9 - Sepsis, unspecified organism Status: Acute Assessment and Plan: Currently being treated for cholecystitis + pelvic abscesses UCx 08/05, 08/06, 08/16 negative GB Cx 08/06 growing enterococcus but unable to perform sensitivities; treated with a course of linezolid stopped 08/19. Abscess Cx 08/06 Prevotella that is beta-lactamase positive BCx 08/06, 08/10 and 08/16 negative. MRSA nasal swab 08/[address] A/P 08/13 showing multiple intraperitoneal abscesses similar to 08/09 with worsening mass involving the right inguinal canal and right scrotum. 08/14: Multiple Abd drains placed with culture growing H. parainfluenza and prevotella (no sensitivities but beta lactamase positive) CT A/P 08/18 slight increase in fluid collection adjacent to LLQ pigtail drain measuring 3 cm, other fluid collections are either stable or slightly smaller in size, stable right groin infected hematoma, cystitis versus bladder wall thickening, Weathers catheter in place but balloon not visualized and mild fecal impaction. Tx with meropenem, linezolid. Micafungin added 08/11 he completed a course of linezolid stopped 08/19. meropenem changed to Cefepime and Flagyl. Flagyl and Cefepime stopped 08/23 Micafungin stopped 08/25 after 14 days course Zosyn started 08/23 through 08/26 WBC remaining normal, fevers resolved so All abx stopped on 08/26 -------- Recurrent fevers so re-cultured and Abx resumed 09/01 BCx 09/01, 09/07 negative Sputum Cx 09/01 negative UCx 09/01 negative; UCx 09/07 growing 10-49K ketan parapsilosis UE/LE Dopplers negative for DVT 09/07 Paracentesis 09/09 returning purulent fluid with cx growing Bacteroides, klebsiella pneumoniae. CT A/P 09/11 showing LLQ abscess 14cm and Pelvic abscess 12cm. Abd and pelvic drains placed 09/11: -- 1st cx: klebsiella pneumoniae CRE -- 2nd cx: Yeast and Klebsiella pneumoniae CRE Started on Flagyl and Rocephin 09/11 but Rocephin changed to Avycaz on 09/15; Flagyl stopped 09/23/23 Scrotal US 09/12 showing 1cm left epididymis mass likely benign and small left hydrocele with septat
[2023-09-26 18:07] LABS: Glucose Point of Care 127 mg/dl (65-105)
[2023-09-26 23:46] LABS: Glucose Point of Care 123 mg/dl (65-105)
[2023-09-27] VITALS (21 sets, daily range): BP systolic 124–145; BP diastolic 76–97; PULSE 81–108; RESP 17–25; TEMP 36.8–37.3; O2SAT 93–100
[2023-09-27] MEDS: HYDROmorphone HCL INJ (*CRX) 1 MG/ML SYR 0.5 MG IV PUSH (01:24)
[2023-09-27 04:51] LABS: Basophils Percent Auto 0.5 % (0.2-1.2); Eosinophils Percent Auto 10.9 % (0-4.4); Hematocrit 30.3 % (42.0-52.0); Hemoglobin 8.8 g/dL (14.0-18.0); Immature Granulocyte Absolute 0.09 K/mm3 (0.00-0.031); Lymphocytes Absolute Auto 2.07 K/mm3 (0.9-3.2); Lymphocytes Percent Auto 23.3 % (18.3-44.2); Mean Platelet Volume 10.5 fl (7.4-10.4); Monocytes Absolute Auto 0.6 K/mm3 (0.1-0.6); Monocytes Percent Auto 6.5 % (2.6-8.5); Neutrophils Absolute Auto 5.1 K/mm3 (1.3-6.7); Neutrophils Percent Auto 57.8 % (45.5-73.1); Platelet Count Result 353 k/mm3 (150-375); Red Blood Count 3.03 M/mm3 (4.6-6.20); Red Cell Distribution Width 16.8 % (11.5-14.5); White Blood Count 8.9 K/mm3 (4.5-10.0)
[2023-09-27 05:02] LABS: Phosphorus 3.9 mg/dL (2.5-4.5)
[2023-09-27 05:38] LABS: Anisocytosis 1+ (NORMAL); Hypochromasia 1+ (NORMAL); Platelet Estimate Adequate (Adequate)
[2023-09-27 05:39] LABS: Schistocytes None Seen (NORMAL)
[2023-09-27] MEDS: LEVOTHYROXINE SODIUM INJ 100 MCG/5 ML VIAL 50 MCG IV PUSH (06:11)
[2023-09-27] MEDS: CENTRAL LINE FLUSH 10 ML IV PUSH ×3 (06:11→20:35)
[2023-09-27 06:15] LABS: Glucose Point of Care 120 mg/dl (65-105)
[2023-09-27 08:28] LABS: Arterial Blood Gas PEEP 5 cmH2O; Arterial Blood Gas Tidal Volume 480 ml; Arterial Blood Gas Vent Mode CMV; Arterial Blood Gas Ventilator rate 15 /MIN; Device VENTILATOR
[2023-09-27] MEDS: SCOPOLAMINE 1 MG PATCH 1 PATCH TRANSDERM (08:29)
[2023-09-27] MEDS: COLLAGENASE OINT 30 GM TUBE 1 APPLIC TOPICAL (08:30)
[2023-09-27] MEDS: ENOXAPARIN 30 MG/0.3 ML SYRINGE SUB-Q (08:30)
[2023-09-27] MEDS: SODIUM BICARBONATE TAB 650 MG TABLET FEED TUBE ×2 (08:30→17:14)
[2023-09-27] MEDS: TOLNAFTATE 1% POWDER 45 GM BTL 1 APPLIC TOPICAL ×2 (08:30→20:35)
[2023-09-27] MEDS: PANTOPRAZOLE SODIUM IV 40 MG VIAL IV PUSH ×2 (08:30→20:35)
[2023-09-27 08:58] LABS: Anion Gap 10 mmol/L (8-16); Blood Urea Nitrogen 80 mg/dL (9-20); Calcium 8.9 mg/dL (8.4-10.2); Carbon Dioxide 21 mmol/L (22-30); Chloride 122 mmol/L (98-107); Estimated CRCL calculation 29 ml/min; Estimated Glomerular Filt Rate 27; Glucose 116 mg/dL (65-110); Potassium 4.8 mmol/L (3.4-5.0); Sodium 153 mmol/L (137-145)
--- NOTE | 2023-09-27 09:32 | PM.PNNEP ---
Progress Note: A&P Assessment and Plan (1) MOISÉS (acute kidney injury): Code(s): N17.9 - Acute kidney failure, unspecified Status: Acute Assessment and Plan: multiple episodes noted since admission slow improvement noted multifactorial issues present: prerenal factors previous relative hypotension (sometimes as low as 80s systolic) previous ongoing use of ARB (losartan) previous IV ibuprofen use contrast exposure (CT scan on 08/04/23) recurrent infection/sepsis (suspect major component) evaluation during this hospital stay: renal ultrasound okay urine electrolytes prerenal urine eosinophils negative CPK mildly elevated (but not likely to affect kidney function) still with reasonable urine output (without use of diuretics) metabolic acidosis noted - on sodium bicarbonate per tube continue to follow repeat labs and UOP (2) Hypernatremia: Code(s): E87.0 - Hyperosmolality and hypernatremia Status: Acute Assessment and Plan: presumably due to free water deficit however, use of sodium bicarbonate for metabolic acidosis could be contributing backing off on oral bicarbonate since renal function improving increase free water flushes and titrate as needed use D5W IVFs PRN (3) Sepsis: Qualifiers: Sepsis type: sepsis due to unspecified organism Sepsis acute organ dysfunction status: with acute organ dysfunction Severe sepsis acute organ dysfunction type: acute renal failure Acute renal failure type: unspecified Severe sepsis shock status: without septic shock Qualified Code(s): A41.9 - Sepsis, unspecified organism; R65.20 - Severe sepsis without septic shock; N17.9 - Acute kidney failure, unspecified Code(s): A41.9 - Sepsis, unspecified organism Status: Acute Assessment and Plan: remains hemodynamically stable off all vasopressor therapy multiple issues/etiologies: recurrent abdominal abscesses as noted by imaging to date peritonitis (see recent ascites fluid cultures) abdominal drains in place on antibiotics (4) Metabolic acidosis: Code(s): E87.20 - Acidosis, unspecified Status: Acute Assessment and Plan: improving presumably due to MOISÉS/ARF and uremia lactic acid in normal range wean sodium bicarbonate as tolerated (5) Acute respiratory failure: Qualifiers: Respiratory failure complication: hypoxia and hypercapnia Qualified Code(s): J96.01 - Acute respiratory failure with hypoxia; J96.02 - Acute respiratory failure with hypercapnia Code(s): J96.00 - Acute respiratory failure, unspecified whether with hypoxia or hypercapnia Status: Acute Assessment and Plan: s/p tracheostomy for prolonged ventilator weaning complicated by weakness and severe deconditioning weaning as tolerated continue supportive therapy (6) Pelvic abscess in male: Code(s): K65.1 - Peritoneal abscess Status: Acute Assessment and Plan: as noted by recent CT imaging s/p drainage catheter placement by IR on antibiotics Surgery managing (7) Decubitus ulcer: Code(s): L89.90 - Pressure ulcer of unspecified site, unspecified stage Status: Acute Assessment and Plan: s/p debridement and diverting colostomy local wound care Surgery following (8) Anemia: Qualifiers: Anemia type: other cause Other causes of anemia: chronic disease, other Qualified Code(s): D63.8 - Anemia in other chronic diseases classified elsewhere Code(s): D64.9 - Anemia, unspecified Status: Acute Assessment and Plan: due to operative interventions, acute illness and MOISÉS getting Epogen 3 times a week follow trend of H/H Will continue to follow. Subjective Date/time seen: 09/27/23 09:32 Interval history: Follow-up for acute kidney injury/acute renal failure. Stable hemodynamics noted and afebrile; mentation continues to i
--- NOTE | 2023-09-27 09:32 | P.PNNP_ITS ---
Progress Note: A&P Assessment and Plan (1) MOISÉS (acute kidney injury): Code(s): N17.9 - Acute kidney failure, unspecified Status: Acute Assessment and Plan: * multiple episodes noted since admission * slow improvement noted * multifactorial issues present: * prerenal factors * previous relative hypotension (sometimes as low as 80s systolic) * previous ongoing use of ARB (losartan) * previous IV ibuprofen use * contrast exposure (CT scan on 08/04/23) * recurrent infection/sepsis (suspect major component) * evaluation during this hospital stay: * renal ultrasound okay * urine electrolytes prerenal * urine eosinophils negative * CPK mildly elevated (but not likely to affect kidney function) * still with reasonable urine output (without use of diuretics) * metabolic acidosis noted - on sodium bicarbonate per tube * continue to follow repeat labs and UOP (2) Hypernatremia: Code(s): E87.0 - Hyperosmolality and hypernatremia Status: Acute Assessment and Plan: * presumably due to free water deficit * however, use of sodium bicarbonate for metabolic acidosis could be contributing * backing off on oral bicarbonate since renal function improving * increase free water flushes and titrate as needed * use D5W IVFs PRN (3) Sepsis: Qualifiers: Sepsis type: sepsis due to unspecified organism Sepsis acute organ dysfunction status: with acute organ dysfunction Severe sepsis acute organ dysfunction type: acute renal failure Acute renal failure type: unspecified Severe sepsis shock status: without septic shock Qualified Code(s): A41.9 - Sepsis, unspecified organism; R65.20 - Severe sepsis without septic shock; N17.9 - Acute kidney failure, unspecified Code(s): A41.9 - Sepsis, unspecified organism Status: Acute Assessment and Plan: * remains hemodynamically stable * off all vasopressor therapy * multiple issues/etiologies: * recurrent abdominal abscesses as noted by imaging to date * peritonitis (see recent ascites fluid cultures) * abdominal drains in place * on antibiotics (4) Metabolic acidosis: Code(s): E87.20 - Acidosis, unspecified Status: Acute Assessment and Plan: * improving * presumably due to MOISÉS/ARF and uremia * lactic acid in normal range * wean sodium bicarbonate as tolerated (5) Acute respiratory failure: Qualifiers: Respiratory failure complication: hypoxia and hypercapnia Qualified Code(s): J96.01 - Acute respiratory failure with hypoxia; J96.02 - Acute respiratory failure with hypercapnia Code(s): J96.00 - Acute respiratory failure, unspecified whether with hypoxia or hypercapnia Status: Acute Assessment and Plan: * s/p tracheostomy for prolonged ventilator weaning * complicated by weakness and severe deconditioning * weaning as tolerated * continue supportive therapy (6) Pelvic abscess in male: Code(s): K65.1 - Peritoneal abscess Status: Acute Assessment and Plan: * as noted by recent CT imaging * s/p drainage catheter placement by IR * on antibiotics * Surgery managing (7) Decubitus ulcer: Code(s): L89.90 - Pressure ulcer of unspecified site, unspecified stage Status: Acute Assessment and Plan: * s/p debridement and diverting colostomy * local wound care * Surgery following (8) Anemia: Qualifiers: Anemia type: other cause Other causes of anemia: chronic disease, other Qualified Code(s): D63.8 -
--- NOTE | 2023-09-27 10:57 | PCNFU ---
Nutrition Follow-Up Complete: Swallowing Difficulties as related to mentation/risk of aspiration as evidenced by NPO. Goal: Meet estimated nutritional needs patient is meeting current goals. Pt current nutrition is Vital AF 1.2 at 70 ml/hr. Last recorded weight is 114.9 kg Bowel Motility:+Bm reported 09/27 Labs Reviewed:Hgb 8.8,Hct 30.3, Na 153, BUN 80,Cr 2.3,Glu 116 Meds Noted:Protonix, Synthroid, Sodium Bicarbonate tab. Skin: WNL Additional Notes:Patient current with Trach and PEG. Tube feedings are being tolerating of Vital AF 1.2 at 70 ml/hr providing 1848 kcals/116 gms protein/1249 ml water with 200 ml flush q 4 hours. Na is 153 up from 152 on 09/26. Recommend to continue current flush amount. Agree with tube feedings orders. Will monitor weight, labs, skin, meds, TPN every Saturday and Saturday.
--- NOTE | 2023-09-27 12:44 | PM.PNGS ---
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 Peacock tells me he is still too weak to not have the pressure support and occasional mechanical ventilation. (4) Protein-calorie malnutrition, severe: Code(s): E43 - Unspecified severe protein-calorie malnutrition Status: Acute Assessment and Plan: Off TPN and receiving tube feeds at 70 cc/hour as recommended by nutritional assessment per dietitian (5) History of tracheostomy: Code(s): Z98.890 - Other specified postprocedural states Status: Chronic Assessment and Plan: No problems that I am aware of (6) MOISÉS (acute kidney injury): Code(s): N17.9 - Acute kidney failure, unspecified Status: Acute Assessment and Plan: Continuing to improve. Creatinine clearance is almost 30. BUN down to 80. 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 Continue daily and p.r.n. collagenase dressings. Subjective Subjective Date/Time Seen: 09/27/23 12:44 Patient reports: other (Unable to speak due to vent and tracheostomy) Interval history: Patient breathing on his own with only pressure support per trach. Reportedly has been more awake. Review of Systems Review of Systems: ROS unobtainable: Yes unobtainable due to medical condition Exam Const: General: comfortable and awake (Sleepy but easily arouses. Has been communicating with writing and gesture) GI: Inspection: incision (Healing), no visible herniation, No visible peristalsis and other (No output left flank abscess, 160 mL anterior abscess) GI Palp: Yes Soft to palpation, Yes Tenderness to palpation present (GI), No Guarding due to palpation present (GI), No Hernia present and No Palpable mass present Auscultation: normal bowel sounds Objective Data Vital Signs Vital Signs: Vital Signs - 24 hr 09/26/23 13:59 09/26/23 14:00 09/26/23 14:16 Temperature Pulse Rate 92 97 85 Respiratory Rate 22 H Blood Pressure 146/85 H Pulse Oximetry 98 98 Oxygen Delivery Mechanical Ventilation Fraction of Inspired Oxygen 30 09/26/23 16:00 09/26/23 16:00 09/26/23 16:00 Temperature 36.9 C Pulse Rate 85 78 78 Respiratory Rate 19 19 Blood Pressure 132/90 Pulse Oximetry 98 98 Oxygen Delivery Mechanical Ventilation Fraction of Inspired Oxygen 30 09/26/23 17:33 09/26/23 18:00 09/26/23 18:00 Temperature Pulse Rate 90 92 92 Respiratory Rate 15 Blood Pressure 152/89 H Pulse Oximetry 98 97 Oxygen Delivery Mechanical Ventilation Fraction of Inspired Oxygen 30 09/26/23 20:00 09/26/23 20:00 09/26/23 20:00 Temperature 37.0 C Pulse Rate 95 95 Respiratory Rate 18 Blood Pressure 138/81 Pulse Oximetry 98 98 Oxygen Delivery Mechanical Ventilation Fraction of Inspired Oxygen 30 09/26/23 22:00 09/26/23 22:00 09/27/23 00:00 Temperature 37.1 C 36.9 C Pulse Rate 88 88 89 Respiratory Rate 19 22 H Blood Pressure 149/82 H 140/91 H Pulse Oximetry 97 98 Oxygen Delivery Fraction of Inspired Oxygen 09/27/23 00:00 09/26/23 20:10 09/26/23 23:00 Temperature Pulse Rate 91 90 Respiratory Rate
[2023-09-27 13:04] LABS: Glucose Point of Care 132 mg/dl (65-105)
[2023-09-27 18:20] LABS: Glucose Point of Care 119 mg/dl (65-105)
[2023-09-28] VITALS (20 sets, daily range): BP systolic 130–155; BP diastolic 75–114; PULSE 76–112; RESP 17–25; TEMP 36.8–37.1; O2SAT 94–99
[2023-09-28 00:16] LABS: Glucose Point of Care 115 mg/dl (65-105)
[2023-09-28] MEDS: LEVOTHYROXINE SODIUM INJ 100 MCG/5 ML VIAL 50 MCG IV PUSH (06:08)
[2023-09-28] MEDS: CENTRAL LINE FLUSH 10 ML IV PUSH ×3 (06:09→22:40)
[2023-09-28 06:16] LABS: Basophils Percent Auto 0.5 % (0.2-1.2); Eosinophils Percent Auto 11.5 % (0-4.4); Hematocrit 31.1 % (42.0-52.0); Hemoglobin 8.9 g/dL (14.0-18.0); Immature Granulocyte Absolute 0.08 K/mm3 (0.00-0.031); Immature Granulocyte Percent A 0.9 % (0-0.5); Lymphocytes Absolute Auto 1.73 K/mm3 (0.9-3.2); Mean Corpuscular HGB Conc 28.6 g/dl (32-36); Mean Corpuscular Hemoglobin 29.2 pg (26-34); Mean Platelet Volume 10.2 fl (7.4-10.4); Monocytes Absolute Auto 0.6 K/mm3 (0.1-0.6); Neutrophils Absolute Auto 5.2 K/mm3 (1.3-6.7); Neutrophils Percent Auto 60.1 % (45.5-73.1); Platelet Count Result 329 k/mm3 (150-375); Red Blood Count 3.05 M/mm3 (4.6-6.20); White Blood Count 8.6 K/mm3 (4.5-10.0)
[2023-09-28 06:39] LABS: Alanine Aminotransferase 22 U/L (6-50); Albumin Level 3.4 g/dL (3.5-5.1); Alkaline Phosphatase 113 U/L (38-126); Anion Gap 12 mmol/L (8-16); Aspartate Amino Transferase 29 U/L (17-59); Bilirubin,Total 0.5 mg/dL (0.2-1.3); Blood Urea Nitrogen 67 mg/dL (9-20); Calcium 8.9 mg/dL (8.4-10.2); Carbon Dioxide 20 mmol/L (22-30); Chloride 121 mmol/L (98-107); Estimated CRCL calculation 33 ml/min; Estimated Glomerular Filt Rate 32; Glucose 118 mg/dL (65-110); Potassium 4.4 mmol/L (3.4-5.0); Sodium 153 mmol/L (137-145)
[2023-09-28] MEDS: DEXTROSE 5% IN WATER 500 ML 100 ML IV CONT (08:00)
[2023-09-28] MEDS: EPOETIN ALFA-EPBX 10,000 UNITS/ML VIAL 10000 UNITS SUB-Q (08:07)
[2023-09-28] MEDS: PANTOPRAZOLE SODIUM IV 40 MG VIAL IV PUSH ×2 (08:07→20:25)
[2023-09-28] MEDS: TOLNAFTATE 1% POWDER 45 GM BTL 1 APPLIC TOPICAL ×2 (08:08→20:25)
[2023-09-28] MEDS: ENOXAPARIN 30 MG/0.3 ML SYRINGE SUB-Q (08:08)
[2023-09-28] MEDS: COLLAGENASE OINT 30 GM TUBE 1 APPLIC TOPICAL (08:08)
[2023-09-28] MEDS: SODIUM BICARBONATE TAB 650 MG TABLET FEED TUBE ×2 (08:08→17:26)
--- NOTE | 2023-09-28 08:14 | WPDINTPN ---
Progress Note: A&P Assessment and Plan (1) Acute respiratory failure: Qualifiers: Respiratory failure complication: hypoxia and hypercapnia Qualified Code(s): J96.01 - Acute respiratory failure with hypoxia; J96.02 - Acute respiratory failure with hypercapnia Code(s): J96.00 - Acute respiratory failure, unspecified whether with hypoxia or hypercapnia Status: Acute Assessment and Plan: Acute hypoxic and hypercarbic respiratory failure. Failed multiple days off weaning trials -08/30: Tracheostomy placed 09/09 patient appears to have developed a leak in his tracheostomy cuff. NEW TRACHEOSTOMY was inserted by ENT on 09/09 09/10: Tolerated pressure support ventilation 14/8 all day, was placed on CMV mode overnight 09/11: Placed on pressure support ventilation 14/8 and tolerating for now will switch to CMV mode overnight 09/14: Patient did not tolerate pressure support ventilation as he was breathing only 8-9 times a minute, was placed on ASV mode and tolerated all day long. Placed on CMV overnight 09/15 patient tolerated pressure support ventilation 10/5 all day, was placed on CMV over 09/16: Total PSV 8/5 all day and through the night -will continue PSV 8/5 today too, patient gets tired, tachypneic, tachycardic will put him back on CMV mode 09/18: Patient was placed on CMV mode overnight after he got tired and was tachypneic on pressure support ventilation 8/5. Will give a break today -09/20: Did not tolerate pressure support ventilation or ASV -09/21 and 09/22: Tolerated pressure support ventilation 10/5 all day long, was placed on CMV mode overnight -09/23: Patient has been tolerating pressure support ventilation 10/5 and tolerating all day and is placed on CMV of during the night. -09/24: Tolerated PSV 10/5 all day and was placed overnight on CMV -09/[address] patient on PSV 10/5 and try to see if he can tolerate 8/5. PEG tube placement today, 09/25/202209/[address] patient PSV 10/5 and tolerated for few hours 09/[address] patient on PSV again today (2) Sepsis: Qualifiers: Sepsis type: sepsis due to unspecified organism Sepsis acute organ dysfunction status: with acute organ dysfunction Severe sepsis acute organ dysfunction type: acute renal failure Acute renal failure type: unspecified Severe sepsis shock status: without septic shock Qualified Code(s): A41.9 - Sepsis, unspecified organism; R65.20 - Severe sepsis without septic shock; N17.9 - Acute kidney failure, unspecified Code(s): A41.9 - Sepsis, unspecified organism Status: Acute Assessment and Plan: Secondary to peritonitis. Patient also appears to have consolidation of the lower lobes on the CT done which could be aspiration versus atelectasis 08/06: Repeat CT scan of abdomen and pelvis showed gallbladder distention and also fluid collection likely exudative 08/06 patient underwent cholecystostomy tube placement and drainage of peritoneal abscess-cultures have been sent 08/06: IR placed drain in abscess and right and gallbladder which are in place Gallbladder drain culture grew Enterococcus Abscess drain culture grew prevotella Patient continues to have elevated WBC count and low-grade fevers 08/09 CT scan shows multiple peritoneal fluid collections. Although patient has drain in place, may not provide adequate source control due to multiple fluid locations. Recommend re-evaluation for abdominal washout due to persistent elevated WBC low-grade fevers. 08/10 repeat blood cultures sent 08/11 fungal blood culture were sent and patient was started on empiric micafungin 08/[address] of abdomen showed multiple intraperitoneal abscesses and worsening mass in right inguinal canal and right scrotum suggestive of infected hematoma 08/14 multiple (5) drains for placed in abdomen. Cultures growing Haemophilus parainfluenza 08/[address] scan: 1. Multiple abdominal abscesses with interval improvement status post percut
[2023-09-28 08:59] LABS: Anisocytosis 1+ (NORMAL); Hypochromasia 1+ (NORMAL); Platelet Estimate Adequate (Adequate); Schistocytes None Seen (NORMAL)
--- NOTE | 2023-09-28 10:52 | PC.NURSE ---
Dr. Armijo at bedside.
--- NOTE | 2023-09-28 11:09 | PM.PNGS ---
Progress Note: A&P Assessment and Plan (1) S/P partial colectomy: Code(s): Z90.49 - Acquired absence of other specified parts of digestive tract Status: Acute Assessment and Plan: Percutaneous drains still draining green, enteric looking fluid. Patient has active bowel sounds and a soft abdomen. Wound is healing well. If does have enterocutaneous fistula, it is well drained with the percutaneous drains. 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 Continue collagenase dressing changes (4) Protein-calorie malnutrition, severe: Code(s): E43 - Unspecified severe protein-calorie malnutrition Status: Acute Assessment and Plan: Receiving tube feeds at 70 cc an hour, that is his goal rate (5) History of tracheostomy: Code(s): Z98.890 - Other specified postprocedural states Status: Chronic Assessment and Plan: Working well (6) MOISÉS (acute kidney injury): Code(s): N17.9 - Acute kidney failure, unspecified Status: Acute Assessment and Plan: Keeps improving daily. Good urine output persists. Subjective Subjective Date/Time Seen: 09/28/23 11:09 Patient reports: no new complaints, tolerating liquids well (Tube feeds per gastrostomy tube), bowel movement and afebrile Review of Systems Review of Systems: ROS unobtainable: Yes unobtainable due to medical condition Exam Const: General: comfortable, awake and tired appearing GI: Inspection: non-distended, incision (Healing), no visible herniation and other (Both drains have green, enteric looking, fluid draining.) GI Palp: Yes Soft to palpation, No Tenderness to palpation present (GI) and No Hernia present Auscultation: normoactive bowel sounds Other: Increased output from left flank drain yesterday. Anterior drain about same. : Male General Exam: Yes edema Penis: Yes edematous Scrotum: edematous Urinary Catheter: Urinary Catheter: patent and draining Objective Data Vital Signs Vital Signs: Vital Signs - 24 hr 09/27/23 12:00 09/27/23 12:00 09/27/23 12:00 Temperature 37.3 C Pulse Rate 96 96 Respiratory Rate 22 H Blood Pressure 128/77 Pulse Oximetry 98 Oxygen Delivery Fraction of Inspired Oxygen 30 09/27/23 12:00 09/27/23 12:52 09/27/23 14:00 Temperature Pulse Rate 96 106 H 99 Respiratory Rate 22 H Blood Pressure Pulse Oximetry 98 97 Oxygen Delivery Mechanical Ventilation Mechanical Ventilation Fraction of Inspired Oxygen 30 30 09/27/23 14:00 09/27/23 16:00 09/27/23 16:00 Temperature 37.2 C 37.1 C Pulse Rate 99 98 98 Respiratory Rate 18 17 Blood Pressure 143/92 H 145/97 H Pulse Oximetry 99 100 Oxygen Delivery Fraction of Inspired Oxygen 09/27/23 16:00 09/27/23 16:00 09/27/23 17:11 Temperature Pulse Rate 98 93 Respiratory Rate 17 Blood Pressure Pulse Oximetry 100 98 Oxygen Delivery Mechanical Ventilation Mechanical Ventilation Fraction of Inspired Oxygen 30 30 30 09/27/23 14:40 09/27/23 18:00 09/27/23 18:00 Temperature 37.1 C Pulse Rate 94 99 98 Respiratory Rate 17 Blood Pressure 145/93 H Pulse Oximetry 100 99 Oxygen Delivery Mechanical Ventilation Fraction of Inspired Oxygen 30 09/27/23 20:14 09/27/23 20:00 09/27/23 20:00 Temperature Pulse Rate 103 H 95 Respiratory Rate Blood Pressure Pulse Oximetry 98 98 Oxygen Delivery Mechanical Ventilation Mechanical Ventilation Fraction of Inspired Oxygen 30 30 09/27/23 20:00 09/27/23 20:00 09/27/23 22:00 Temperature 37.2 C Pulse Rate 95 92 Respiratory Rate 19 Blood Pressure 144/85 H Pulse Oximetry 98 Oxygen Delivery Fraction of Inspired Oxygen 30
[2023-09-28 12:49] LABS: Glucose Point of Care 144 mg/dl (65-105)
--- NOTE | 2023-09-28 16:53 | PM.IMPN ---
Progress Note: A&P Assessment and Plan (1) Acute respiratory failure: Qualifiers: Respiratory failure complication: hypoxia and hypercapnia Qualified Code(s): J96.01 - Acute respiratory failure with hypoxia; J96.02 - Acute respiratory failure with hypercapnia Code(s): J96.00 - Acute respiratory failure, unspecified whether with hypoxia or hypercapnia Status: Acute Assessment and Plan: Patient admitted for elective repair of a large right inguinal hernia on 08/02/23. Post-operatively, he developed ileus, peritonitis, AFib/RVR, MOISÉS and HoTN. He was moved to the ICU on 08/06 for HoTN. On the morning of 08/15, patient developed acute respiratory distress. ABG 7.37/62/58 so BiPAP ordered but repeat ABG 7.15/101/91 so patient intubated 08/15. CXR reviewed showing diffuse lung disease c/w edema vs PNA vs atelectasis Trach placed 08/30; Trach had to be replaced on 09/09 ENT performed tracheoscopy 09/13 showing the trachea does curve into the anterior tracheal wall but patent Remains on MV. Tolerating trach trials. Appreciate senior office support assistant sosa and ENT input. Wean vent as tolerated (2) Sepsis: Qualifiers: Sepsis type: sepsis due to unspecified organism Sepsis acute organ dysfunction status: with acute organ dysfunction Severe sepsis acute organ dysfunction type: acute renal failure Acute renal failure type: unspecified Severe sepsis shock status: without septic shock Qualified Code(s): A41.9 - Sepsis, unspecified organism; R65.20 - Severe sepsis without septic shock; N17.9 - Acute kidney failure, unspecified Code(s): A41.9 - Sepsis, unspecified organism Status: Acute Assessment and Plan: Currently being treated for cholecystitis + pelvic abscesses UCx 08/05, 08/06, 08/16 negative GB Cx 08/06 growing enterococcus but unable to perform sensitivities; treated with a course of linezolid stopped 08/19. Abscess Cx 08/06 Prevotella that is beta-lactamase positive BCx 08/06, 08/10 and 08/16 negative. MRSA nasal swab 08/[address] A/P 08/13 showing multiple intraperitoneal abscesses similar to 08/09 with worsening mass involving the right inguinal canal and right scrotum. 08/14: Multiple Abd drains placed with culture growing H. parainfluenza and prevotella (no sensitivities but beta lactamase positive) CT A/P 08/18 slight increase in fluid collection adjacent to LLQ pigtail drain measuring 3 cm, other fluid collections are either stable or slightly smaller in size, stable right groin infected hematoma, cystitis versus bladder wall thickening, Weathers catheter in place but balloon not visualized and mild fecal impaction. Tx with meropenem, linezolid. Micafungin added 08/11 he completed a course of linezolid stopped 08/19. meropenem changed to Cefepime and Flagyl. Flagyl and Cefepime stopped 08/23 Micafungin stopped 08/25 after 14 days course Zosyn started 08/23 through 08/26 WBC remaining normal, fevers resolved so All abx stopped on 08/26 -------- Recurrent fevers so re-cultured and Abx resumed 09/01 BCx 09/01, 09/07 negative Sputum Cx 09/01 negative UCx 09/01 negative; UCx 09/07 growing 10-49K ketan parapsilosis UE/LE Dopplers negative for DVT 09/07 Paracentesis 09/09 returning purulent fluid with cx growing Bacteroides, klebsiella pneumoniae. CT A/P 09/11 showing LLQ abscess 14cm and Pelvic abscess 12cm. Abd and pelvic drains placed 09/11: -- 1st cx: klebsiella pneumoniae CRE -- 2nd cx: Yeast and Klebsiella pneumoniae CRE Started on Flagyl and Rocephin 09/11 but Rocephin changed to Avycaz on 09/15; Flagyl stopped 09/23/23 Scrotal US 09/12 showing 1cm left epididymis mass likely benign and small left hydrocele with septation. Not felt to have scrotal abscess Diflucan started 09/07 and stopped 09/12 CT A/P 09/18 showing decompressed abscess cavities. WBC normal and fevers resolved. Continue IV abx with Avycaz through 09/28/23 (3) Pelvic abscess in male: Code(s): K65.1 - Peritoneal abscess
[2023-09-28 17:35] LABS: Glucose Point of Care 115 mg/dl (65-105)
[2023-09-28] MEDS: ONDANSETRON INJ 4 MG/2 ML VIAL IV PUSH (18:17)
[2023-09-28 23:35] LABS: Glucose Point of Care 101 mg/dl (65-105)
[2023-09-29] VITALS (19 sets, daily range): BP systolic 110–154; BP diastolic 71–103; PULSE 76–104; RESP 15–25; TEMP 36.8–37.1; O2SAT 97–98
[2023-09-29 06:03] LABS: Basophils Absolute Auto 0.1 K/mm3 (0.0-0.1); Basophils Percent Auto 0.6 % (0.2-1.2); Eosinophils Absolute Auto 0.9 K/mm3 (0-0.3); Eosinophils Percent Auto 10.9 % (0-4.4); Hemoglobin 9.3 g/dL (14.0-18.0); Immature Granulocyte Absolute 0.09 K/mm3 (0.00-0.031); Immature Granulocyte Percent A 1.1 % (0-0.5); Lymphocytes Absolute Auto 1.75 K/mm3 (0.9-3.2); Lymphocytes Percent Auto 20.5 % (18.3-44.2); Mean Corpuscular HGB Conc 29.1 g/dl (32-36); Mean Corpuscular Hemoglobin 29.6 pg (26-34); Mean Corpuscular Volume 101.9 fl (80-100); Mean Platelet Volume 10.2 fl (7.4-10.4); Monocytes Absolute Auto 0.5 K/mm3 (0.1-0.6); Neutrophils Absolute Auto 5.2 K/mm3 (1.3-6.7); Neutrophils Percent Auto 60.9 % (45.5-73.1); Nucleated Red Blood Cells Perc 0.2 % (0.0-0.2); Platelet Count Result 317 k/mm3 (150-375); Red Blood Count 3.14 M/mm3 (4.6-6.20); Red Cell Distribution Width 17.2 % (11.5-14.5); White Blood Count 8.5 K/mm3 (4.5-10.0)
[2023-09-29] MEDS: LEVOTHYROXINE SODIUM INJ 100 MCG/5 ML VIAL 50 MCG IV PUSH (06:15)
[2023-09-29] MEDS: CENTRAL LINE FLUSH 10 ML IV PUSH ×3 (06:15→20:21)
[2023-09-29 06:16] LABS: Alanine Aminotransferase 30 U/L (6-50); Albumin Level 3.5 g/dL (3.5-5.1); Alkaline Phosphatase 117 U/L (38-126); Anion Gap 11 mmol/L (8-16); Aspartate Amino Transferase 39 U/L (17-59); Bilirubin,Total 0.6 mg/dL (0.2-1.3); Blood Urea Nitrogen 64 mg/dL (9-20); Calcium 8.6 mg/dL (8.4-10.2); Carbon Dioxide 21 mmol/L (22-30); Chloride 119 mmol/L (98-107); Estimated CRCL calculation 37 ml/min; Estimated Glomerular Filt Rate 36; Glucose 120 mg/dL (65-110); Potassium 4.1 mmol/L (3.4-5.0); Sodium 151 mmol/L (137-145)
[2023-09-29 06:46] LABS: Anisocytosis 1+ (NORMAL); Hypochromasia 1+ (NORMAL); Platelet Estimate Adequate (Adequate); Schistocytes None Seen (NORMAL)
[2023-09-29] MEDS: DEXTROSE 5% IN WATER 500 ML 100 ML IV CONT (08:04)
[2023-09-29] MEDS: PANTOPRAZOLE SODIUM IV 40 MG VIAL IV PUSH ×2 (08:04→20:21)
[2023-09-29] MEDS: COLLAGENASE OINT 30 GM TUBE 1 APPLIC TOPICAL (08:05)
[2023-09-29] MEDS: TOLNAFTATE 1% POWDER 45 GM BTL 1 APPLIC TOPICAL ×2 (08:05→20:21)
[2023-09-29] MEDS: ENOXAPARIN 30 MG/0.3 ML SYRINGE SUB-Q (08:05)
[2023-09-29] MEDS: SODIUM BICARBONATE TAB 650 MG TABLET FEED TUBE ×2 (08:05→16:55)
--- NOTE | 2023-09-29 08:34 | WPDINTPN ---
Progress Note: A&P Assessment and Plan (1) Acute respiratory failure: Qualifiers: Respiratory failure complication: hypoxia and hypercapnia Qualified Code(s): J96.01 - Acute respiratory failure with hypoxia; J96.02 - Acute respiratory failure with hypercapnia Code(s): J96.00 - Acute respiratory failure, unspecified whether with hypoxia or hypercapnia Status: Acute Assessment and Plan: Acute hypoxic and hypercarbic respiratory failure. Failed multiple days off weaning trials -08/30: Tracheostomy placed 09/09 patient appears to have developed a leak in his tracheostomy cuff. NEW TRACHEOSTOMY was inserted by ENT on 09/09 09/10: Tolerated pressure support ventilation 14/8 all day, was placed on CMV mode overnight 09/11: Placed on pressure support ventilation 14/8 and tolerating for now will switch to CMV mode overnight 09/14: Patient did not tolerate pressure support ventilation as he was breathing only 8-9 times a minute, was placed on ASV mode and tolerated all day long. Placed on CMV overnight 09/15 patient tolerated pressure support ventilation 10/5 all day, was placed on CMV over 09/16: Total PSV 8/5 all day and through the night -will continue PSV 8/5 today too, patient gets tired, tachypneic, tachycardic will put him back on CMV mode 09/18: Patient was placed on CMV mode overnight after he got tired and was tachypneic on pressure support ventilation 8/5. Will give a break today -09/20: Did not tolerate pressure support ventilation or ASV -09/21 and 09/22: Tolerated pressure support ventilation 10/5 all day long, was placed on CMV mode overnight -09/23: Patient has been tolerating pressure support ventilation 10/5 and tolerating all day and is placed on CMV of during the night. -09/24: Tolerated PSV 10/5 all day and was placed overnight on CMV -09/[address] patient on PSV 10/5 and try to see if he can tolerate 8/5. PEG tube placement today, 09/25/202209/[address] patient PSV 10/5 and tolerated for few hours 09/28 tolerated PSV 10/5 for 10 hours yesterday 09/[address] patient on PSV again today and try to wean down pressure support of possible (2) Sepsis: Qualifiers: Acute renal failure type: unspecified Sepsis acute organ dysfunction status: with acute organ dysfunction Sepsis type: sepsis due to unspecified organism Severe sepsis acute organ dysfunction type: acute renal failure Severe sepsis shock status: without septic shock Qualified Code(s): A41.9 - Sepsis, unspecified organism; R65.20 - Severe sepsis without septic shock; N17.9 - Acute kidney failure, unspecified Code(s): A41.9 - Sepsis, unspecified organism Status: Acute Assessment and Plan: Secondary to peritonitis. Patient also appears to have consolidation of the lower lobes on the CT done which could be aspiration versus atelectasis 08/06: Repeat CT scan of abdomen and pelvis showed gallbladder distention and also fluid collection likely exudative 08/06 patient underwent cholecystostomy tube placement and drainage of peritoneal abscess-cultures have been sent 08/06: IR placed drain in abscess and right and gallbladder which are in place Gallbladder drain culture grew Enterococcus Abscess drain culture grew prevotella Patient continues to have elevated WBC count and low-grade fevers 08/09 CT scan shows multiple peritoneal fluid collections. Although patient has drain in place, may not provide adequate source control due to multiple fluid locations. Recommend re-evaluation for abdominal washout due to persistent elevated WBC low-grade fevers. 08/10 repeat blood cultures sent 08/11 fungal blood culture were sent and patient was started on empiric micafungin 08/[address] of abdomen showed multiple intraperitoneal abscesses and worsening mass in right inguinal canal and right scrotum suggestive of infected hematoma 08/14 multiple (5) drains for placed in abdomen. Cultures growing Haemophilus parainfluenza 1
--- NOTE | 2023-09-29 08:55 | PM.IMPN ---
Progress Note: A&P Assessment and Plan (1) Acute respiratory failure: Qualifiers: Respiratory failure complication: hypoxia and hypercapnia Qualified Code(s): J96.01 - Acute respiratory failure with hypoxia; J96.02 - Acute respiratory failure with hypercapnia Code(s): J96.00 - Acute respiratory failure, unspecified whether with hypoxia or hypercapnia Status: Acute Assessment and Plan: Patient admitted for elective repair of a large right inguinal hernia on 08/02/23. Post-operatively, he developed ileus, peritonitis, AFib/RVR, MOISÉS and HoTN. He was moved to the ICU on 08/06 for HoTN. On the morning of 08/15, patient developed acute respiratory distress. ABG 7.37/62/58 so BiPAP ordered but repeat ABG 7.15/101/91 so patient intubated 08/15. CXR reviewed showing diffuse lung disease c/w edema vs PNA vs atelectasis Trach placed 08/30; Trach had to be replaced on 09/09 ENT performed tracheoscopy 09/13 showing the trachea does curve into the anterior tracheal wall but patent Remains on MV. Tolerating trach trials. Appreciate pulper operator and ENT input. Discussed Wean vent as tolerated (2) Sepsis: Qualifiers: Sepsis type: sepsis due to unspecified organism Sepsis acute organ dysfunction status: with acute organ dysfunction Severe sepsis acute organ dysfunction type: acute renal failure Acute renal failure type: unspecified Severe sepsis shock status: without septic shock Qualified Code(s): A41.9 - Sepsis, unspecified organism; R65.20 - Severe sepsis without septic shock; N17.9 - Acute kidney failure, unspecified Code(s): A41.9 - Sepsis, unspecified organism Status: Acute Assessment and Plan: Currently being treated for cholecystitis + pelvic abscesses UCx 08/05, 08/06, 08/16 negative GB Cx 08/06 growing enterococcus but unable to perform sensitivities; treated with a course of linezolid stopped 08/19. Abscess Cx 08/06 Prevotella that is beta-lactamase positive BCx 08/06, 08/10 and 08/16 negative. MRSA nasal swab 08/[address] A/P 08/13 showing multiple intraperitoneal abscesses similar to 08/09 with worsening mass involving the right inguinal canal and right scrotum. 08/14: Multiple Abd drains placed with culture growing H. parainfluenza and prevotella (no sensitivities but beta lactamase positive) CT A/P 08/18 slight increase in fluid collection adjacent to LLQ pigtail drain measuring 3 cm, other fluid collections are either stable or slightly smaller in size, stable right groin infected hematoma, cystitis versus bladder wall thickening, Weathers catheter in place but balloon not visualized and mild fecal impaction. Tx with meropenem, linezolid. Micafungin added 08/11 he completed a course of linezolid stopped 08/19. meropenem changed to Cefepime and Flagyl. Flagyl and Cefepime stopped 08/23 Micafungin stopped 08/25 after 14 days course Zosyn started 08/23 through 08/26 WBC remaining normal, fevers resolved so All abx stopped on 08/26 -------- Recurrent fevers so re-cultured and Abx resumed 09/01 BCx 09/01, 09/07 negative Sputum Cx 09/01 negative UCx 09/01 negative; UCx 09/07 growing 10-49K ketan parapsilosis UE/LE Dopplers negative for DVT 09/07 Paracentesis 09/09 returning purulent fluid with cx growing Bacteroides, klebsiella pneumoniae. CT A/P 09/11 showing LLQ abscess 14cm and Pelvic abscess 12cm. Abd and pelvic drains placed 09/11: -- 1st cx: klebsiella pneumoniae CRE -- 2nd cx: Yeast and Klebsiella pneumoniae CRE Started on Flagyl and Rocephin 09/11 but Rocephin changed to Avycaz on 09/15; Flagyl stopped 09/23/23 Scrotal US 09/12 showing 1cm left epididymis mass likely benign and small left hydrocele with septation. Not felt to have scrotal abscess Diflucan started 09/07 and stopped 09/12 CT A/P 09/18 showing decompressed abscess cavities. WBC normal and fevers resolved. Drain output slowing Avycaz stopped 09/28/23 Monitor closely off abx (3) Pelvic abscess in male: Code(s):
[2023-09-29] MEDS: ASPIRIN 325 MG TABLET FEED TUBE (10:07)
--- NOTE | 2023-09-29 10:18 | PM.PNNEP ---
Progress Note: A&P Assessment and Plan (1) MOISÉS (acute kidney injury): Code(s): N17.9 - Acute kidney failure, unspecified Status: Acute Assessment and Plan: multiple episodes noted since admission slow improvement noted multifactorial issues present: prerenal factors previous relative hypotension (sometimes as low as 80s systolic) previous ongoing use of ARB (losartan) previous IV ibuprofen use contrast exposure (CT scan on 08/04/23) recurrent infection/sepsis (suspect major component) evaluation during this hospital stay: renal ultrasound okay urine electrolytes prerenal urine eosinophils negative CPK mildly elevated (but not likely to affect kidney function) still with reasonable urine output (without use of diuretics) metabolic acidosis noted - on sodium bicarbonate per tube continue to follow repeat labs and UOP (2) Hypernatremia: Code(s): E87.0 - Hyperosmolality and hypernatremia Status: Acute Assessment and Plan: presumably due to free water deficit however, use of sodium bicarbonate for metabolic acidosis could be contributing backing off on oral bicarbonate since renal function improving increase free water flushes and titrate as needed use D5W IVFs PRN as well (3) Sepsis: Qualifiers: Sepsis type: sepsis due to unspecified organism Sepsis acute organ dysfunction status: with acute organ dysfunction Severe sepsis acute organ dysfunction type: acute renal failure Acute renal failure type: unspecified Severe sepsis shock status: without septic shock Qualified Code(s): A41.9 - Sepsis, unspecified organism; R65.20 - Severe sepsis without septic shock; N17.9 - Acute kidney failure, unspecified Code(s): A41.9 - Sepsis, unspecified organism Status: Acute Assessment and Plan: remains hemodynamically stable off all vasopressor therapy multiple issues/etiologies: recurrent abdominal abscesses as noted by imaging to date peritonitis (see recent ascites fluid cultures) abdominal drains in place on antibiotics (4) Metabolic acidosis: Code(s): E87.20 - Acidosis, unspecified Status: Acute Assessment and Plan: improving presumably due to MOISÉS/ARF and uremia lactic acid in normal range wean sodium bicarbonate as tolerated (5) Acute respiratory failure: Qualifiers: Respiratory failure complication: hypoxia and hypercapnia Qualified Code(s): J96.01 - Acute respiratory failure with hypoxia; J96.02 - Acute respiratory failure with hypercapnia Code(s): J96.00 - Acute respiratory failure, unspecified whether with hypoxia or hypercapnia Status: Acute Assessment and Plan: s/p tracheostomy for prolonged ventilator weaning complicated by weakness and severe deconditioning weaning as tolerated continue supportive therapy (6) Pelvic abscess in male: Code(s): K65.1 - Peritoneal abscess Status: Acute Assessment and Plan: as noted by recent CT imaging s/p drainage catheter placement by IR on antibiotics Surgery managing (7) Decubitus ulcer: Code(s): L89.90 - Pressure ulcer of unspecified site, unspecified stage Status: Acute Assessment and Plan: s/p debridement and diverting colostomy local wound care Surgery following (8) Anemia: Qualifiers: Anemia type: other cause Other causes of anemia: chronic disease, other Qualified Code(s): D63.8 - Anemia in other chronic diseases classified elsewhere Code(s): D64.9 - Anemia, unspecified Status: Acute Assessment and Plan: due to operative interventions, acute illness and MOISÉS getting Epogen 3 times a week follow trend of H/H Will continue to follow. Subjective Date/time seen: 09/29/23 10:18 Interval history: Follow-up for acute kidney injury/acute renal failure. Doing better with ventilator weaning/PSV trials in the l
--- NOTE | 2023-09-29 10:18 | P.PNNP_ITS ---
Progress Note: A&P Assessment and Plan (1) MOISÉS (acute kidney injury): Code(s): N17.9 - Acute kidney failure, unspecified Status: Acute Assessment and Plan: * multiple episodes noted since admission * slow improvement noted * multifactorial issues present: * prerenal factors * previous relative hypotension (sometimes as low as 80s systolic) * previous ongoing use of ARB (losartan) * previous IV ibuprofen use * contrast exposure (CT scan on 08/04/23) * recurrent infection/sepsis (suspect major component) * evaluation during this hospital stay: * renal ultrasound okay * urine electrolytes prerenal * urine eosinophils negative * CPK mildly elevated (but not likely to affect kidney function) * still with reasonable urine output (without use of diuretics) * metabolic acidosis noted - on sodium bicarbonate per tube * continue to follow repeat labs and UOP (2) Hypernatremia: Code(s): E87.0 - Hyperosmolality and hypernatremia Status: Acute Assessment and Plan: * presumably due to free water deficit * however, use of sodium bicarbonate for metabolic acidosis could be contributing * backing off on oral bicarbonate since renal function improving * increase free water flushes and titrate as needed * use D5W IVFs PRN as well (3) Sepsis: Qualifiers: Sepsis type: sepsis due to unspecified organism Sepsis acute organ dysf unction status: with acute organ dysfunction Severe sepsis acute organ dys function type: acute renal failure Acute renal failure type: unspecified Severe sepsis shock status: without septic shock Qualified Code(s): A41.9 - Sepsis, unspecified organism; R65.20 - Severe sepsis without septic shock; N17.9 - Acute kidney failure, unspecified Code(s): A41.9 - Sepsis, unspecified organism Status: Acute Assessment and Plan: * remains hemodynamically stable * off all vasopressor therapy * multiple issues/etiologies: * recurrent abdominal abscesses as noted by imaging to date * peritonitis (see recent ascites fluid cultures) * abdominal drains in place * on antibiotics (4) Metabolic acidosis: Code(s): E87.20 - Acidosis, unspecified Status: Acute Assessment and Plan: * improving * presumably due to MOISÉS/ARF and uremia * lactic acid in normal range * wean sodium bicarbonate as tolerated (5) Acute respiratory failure: Qualifiers: Respiratory failure complication: hypoxia and hypercapnia Qualified Code(s): J96.01 - Acute respiratory failure with hypoxia; J96.02 - Acute re spiratory failure with hypercapnia Code(s): J96.00 - Acute respiratory failure, unspecified whether with hypoxia or hypercapnia Status: Acute Assessment and Plan: * s/p tracheostomy for prolonged ventilator weaning * complicated by weakness and severe deconditioning * weaning as tolerated * continue supportive therapy (6) Pelvic abscess in male: Code(s): K65.1 - Peritoneal abscess Status: Acute Assessment and Plan: * as noted by recent CT imaging * s/p drainage catheter placement by IR * on antibiotics * Surgery managing (7) Decubitus ulcer: Code(s): L89.90 - Pressure ulcer of unspecified site, unspecified stage Status: Acute Assessment and Plan: * s/p debridement and diverting colostomy * local wound care * Surgery following (8) Anemia: Qualifiers: Anemia type: other cause Other causes of anemia: chronic disease, other Qualified Code(s):
[2023-09-29 12:24] LABS: Glucose Point of Care 141 mg/dl (65-105)
--- NOTE | 2023-09-29 16:13 | PM.PNGS ---
Progress Note: A&P Assessment and Plan (1) S/P partial colectomy: Code(s): Z90.49 - Acquired absence of other specified parts of digestive tract Status: Acute Assessment and Plan: Tolerating tube feeds well, colostomy working well. 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 Continue collagenase dressing changes. (3) Respiratory failure: Qualifiers: Chronicity: chronic Respiratory failure complication: hypercapnia Qualified Code(s): J96.12 - Chronic respiratory failure with hypercapnia Code(s): J96.90 - Respiratory failure, unspecified, unspecified whether with hypoxia or hypercapnia Status: Acute Assessment and Plan: Mostly breathing on his own (4) Abdominal abscess: Status: Acute Assessment and Plan: Drain outputs were less yesterday and less so far today. Subjective Subjective Date/Time Seen: 09/29/23 16:13 Patient reports: bowel movement, afebrile and other (Restless today, apparently did not sleep much last night) Exam Const: General: comfortable and tired appearing GI: Inspection: non-distended, incision (Healing), no visible herniation and other (Drains look like enteric content but less output) GI Palp: Yes Soft to palpation, Yes Tenderness to palpation present (GI) (Mild tenderness), No Guarding due to palpation present (GI), No Hernia present and No Palpable mass present Auscultation: normal bowel sounds Objective Data Vital Signs Vital Signs: Vital Signs - 24 hr 09/28/23 18:03 09/28/23 18:00 09/28/23 18:00 Temperature 36.9 C Pulse Rate 95 93 93 Respiratory Rate 19 Blood Pressure 155/114 H Pulse Oximetry 97 96 Oxygen Delivery Mechanical Ventilation Fraction of Inspired Oxygen 30 09/28/23 20:18 09/28/23 20:00 09/28/23 20:00 Temperature Pulse Rate 97 93 Respiratory Rate Blood Pressure Pulse Oximetry 97 98 Oxygen Delivery Mechanical Ventilation Mechanical Ventilation Fraction of Inspired Oxygen 30 30 09/28/23 20:00 09/28/23 20:00 09/28/23 22:00 Temperature 37.1 C Pulse Rate 93 97 Respiratory Rate 21 H Blood Pressure 144/92 H Pulse Oximetry 98 Oxygen Delivery Fraction of Inspired Oxygen 30 09/28/23 22:00 09/28/23 23:00 09/29/23 00:00 Temperature 37.1 C Pulse Rate 97 112 H Respiratory Rate 17 Blood Pressure 148/94 H Pulse Oximetry 98 97 Oxygen Delivery Mechanical Ventilation Fraction of Inspired Oxygen 30 30 09/29/23 00:00 09/29/23 00:00 09/29/23 00:00 Temperature 37.1 C Pulse Rate 104 H 104 H Respiratory Rate 22 H Blood Pressure 149/84 H Pulse Oximetry 98 98 Oxygen Delivery Mechanical Ventilation Fraction of Inspired Oxygen 30 09/29/23 02:00 09/29/23 02:00 09/29/23 02:00 Temperature 37.0 C Pulse Rate 93 91 91 Respiratory Rate 22 H Blood Pressure 145/102 H Pulse Oximetry 97 98 Oxygen Delivery Mechanical Ventilation Fraction of Inspired Oxygen 30 09/29/23 04:53 09/29/23 04:00 09/29/23 04:00 Temperature Pulse Rate 96 90 Respiratory Rate Blood Pressure Pulse Oximetry 97 97 Oxygen Delivery Mechanical Ventilation Mechanical Ventilation Fraction of Inspired Oxygen 30 30 09/29/23 04:00 09/29/23 04:00 09/29/23 06:00 Temperature 37.1 C Pulse Rate 90 98 Respiratory Rate 20 Blood Pressure 145/95 H Pulse Oximetry 97 Oxygen Delivery Fraction of Inspired Oxygen 30 09/29/23 06:00 09/29/23 08:00 09/29/23 08:00 Temperature 36.9 C 36.8 C Pulse Rate 98 89 Respiratory Rate 25 H 20 Blood Pressure 149/91 H 145/90 H Pulse Oximetry 97 97 97 Oxygen Delivery Mechanical Ventilation Fraction of Inspired Oxygen 30 09/29/23 08:00 09/29/23 08:14 09/29/23 08:00 Temperature Pulse Rate 99 92 Respiratory Rate Blood Pressure Pulse Oximetry 97 Oxygen Delivery
[2023-09-29 18:10] LABS: Glucose Point of Care 111 mg/dl (65-105)
[2023-09-29] MEDS: QUEtiapine FUMARATE 25 MG TABLET PO (20:21)
[2023-09-29 23:03] LABS: Glucose Point of Care 115 mg/dl (65-105)
[2023-09-30] VITALS (19 sets, daily range): BP systolic 114–161; BP diastolic 52–85; PULSE 78–108; RESP 16–20; TEMP 36.7–37.3; O2SAT 96–100; BMI 11.0
[2023-09-30] MEDS: HYDROmorphone HCL INJ (*CRX) 1 MG/ML SYR 0.5 MG IV PUSH ×2 (04:55→21:19)
[2023-09-30] MEDS: CENTRAL LINE FLUSH 10 ML IV PUSH ×3 (05:29→21:14)
[2023-09-30] MEDS: LEVOTHYROXINE SODIUM INJ 100 MCG/5 ML VIAL 50 MCG IV PUSH (05:29)
[2023-09-30 05:47] LABS: Hematocrit 33.8 % (42.0-52.0); Hemoglobin 9.8 g/dL (14.0-18.0); Mean Corpuscular Hemoglobin 29.6 pg (26-34); Mean Corpuscular Volume 102.1 fl (80-100); Mean Platelet Volume 10.2 fl (7.4-10.4); Platelet Count Result 306 k/mm3 (150-375); Red Blood Count 3.31 M/mm3 (4.6-6.20); Red Cell Distribution Width 17.4 % (11.5-14.5); White Blood Count 8.7 K/mm3 (4.5-10.0)
[2023-09-30 05:59] LABS: Alanine Aminotransferase 35 U/L (6-50); Albumin Level 3.4 g/dL (3.5-5.1); Alkaline Phosphatase 116 U/L (38-126); Anion Gap 11 mmol/L (8-16); Aspartate Amino Transferase 39 U/L (17-59); Bilirubin,Total 0.5 mg/dL (0.2-1.3); Blood Urea Nitrogen 57 mg/dL (9-20); Calcium 8.5 mg/dL (8.4-10.2); Carbon Dioxide 22 mmol/L (22-30); Chloride 114 mmol/L (98-107); Estimated CRCL calculation 39 ml/min; Estimated Glomerular Filt Rate 39; Glucose 112 mg/dL (65-110); Magnesium 1.8 mg/dL (1.6-2.3); Potassium 4.3 mmol/L (3.4-5.0); Sodium 147 mmol/L (137-145)
[2023-09-30 06:07] LABS: Transferrin 152 mg/dL (206-381)
[2023-09-30 06:08] LABS: INR 1.2; Partial Thromboplastin Time 28.3 SECONDS (22.3-36.8); Prothrombin Time 15.3 Seconds (11.1-14.7)
--- NOTE | 2023-09-30 08:32 | WPDINTPN ---
Progress Note: A&P Assessment and Plan (1) Acute respiratory failure: Qualifiers: Respiratory failure complication: hypoxia and hypercapnia Qualified Code(s): J96.01 - Acute respiratory failure with hypoxia; J96.02 - Acute respiratory failure with hypercapnia Code(s): J96.00 - Acute respiratory failure, unspecified whether with hypoxia or hypercapnia Status: Acute Assessment and Plan: Acute hypoxic and hypercarbic respiratory failure. Failed multiple days off weaning trials -08/30: Tracheostomy placed 09/09 patient appears to have developed a leak in his tracheostomy cuff. NEW TRACHEOSTOMY was inserted by ENT on 09/09 09/10: Tolerated pressure support ventilation 14/8 all day, was placed on CMV mode overnight 09/11: Placed on pressure support ventilation 14/8 and tolerating for now will switch to CMV mode overnight 09/14: Patient did not tolerate pressure support ventilation as he was breathing only 8-9 times a minute, was placed on ASV mode and tolerated all day long. Placed on CMV overnight 09/15 patient tolerated pressure support ventilation 10/5 all day, was placed on CMV over 09/16: Total PSV 8/5 all day and through the night -will continue PSV 8/5 today too, patient gets tired, tachypneic, tachycardic will put him back on CMV mode 09/18: Patient was placed on CMV mode overnight after he got tired and was tachypneic on pressure support ventilation 8/5. Will give a break today -09/20: Did not tolerate pressure support ventilation or ASV -09/21 and 09/22: Tolerated pressure support ventilation 10/5 all day long, was placed on CMV mode overnight -09/23: Patient has been tolerating pressure support ventilation 10/5 and tolerating all day and is placed on CMV of during the night. -09/24: Tolerated PSV 10/5 all day and was placed overnight on CMV -09/[address] patient on PSV 10/5 and try to see if he can tolerate 8/5. PEG tube placement today, 09/25/202209/[address] patient PSV 10/5 and tolerated for few hours 09/28 tolerated PSV 10/5 for 10 hours yesterday 09/29 Pt tolerated PSV for few hours yesterday and was switched back to CMV 09/30 will try PSV again today and try to wean down pressure support if possible (2) Sepsis: Qualifiers: Sepsis type: sepsis due to unspecified organism Sepsis acute organ dysfunction status: with acute organ dysfunction Severe sepsis acute organ dysfunction type: acute renal failure Acute renal failure type: unspecified Severe sepsis shock status: without septic shock Qualified Code(s): A41.9 - Sepsis, unspecified organism; R65.20 - Severe sepsis without septic shock; N17.9 - Acute kidney failure, unspecified Code(s): A41.9 - Sepsis, unspecified organism Status: Acute Assessment and Plan: Secondary to peritonitis. Patient also appears to have consolidation of the lower lobes on the CT done which could be aspiration versus atelectasis 08/06: Repeat CT scan of abdomen and pelvis showed gallbladder distention and also fluid collection likely exudative 08/06 patient underwent cholecystostomy tube placement and drainage of peritoneal abscess-cultures have been sent 08/06: IR placed drain in abscess and right and gallbladder which are in place Gallbladder drain culture grew Enterococcus Abscess drain culture grew prevotella Patient continues to have elevated WBC count and low-grade fevers 08/09 CT scan shows multiple peritoneal fluid collections. Although patient has drain in place, may not provide adequate source control due to multiple fluid locations. Recommend re-evaluation for abdominal washout due to persistent elevated WBC low-grade fevers. 08/10 repeat blood cultures sent 08/11 fungal blood culture were sent and patient was started on empiric micafungin 08/[address] of abdomen showed multiple intraperitoneal abscesses and worsening mass in right inguinal canal and right scrotum suggestive of infected hematoma 08/14 multiple (5) drains for place
[2023-09-30] MEDS: ASPIRIN 325 MG TABLET FEED TUBE (08:44)
[2023-09-30] MEDS: COLLAGENASE OINT 30 GM TUBE 1 APPLIC TOPICAL (08:45)
[2023-09-30] MEDS: TOLNAFTATE 1% POWDER 45 GM BTL 1 APPLIC TOPICAL ×2 (08:45→21:14)
[2023-09-30] MEDS: PANTOPRAZOLE SODIUM IV 40 MG VIAL IV PUSH ×2 (08:45→21:14)
[2023-09-30] MEDS: ENOXAPARIN 30 MG/0.3 ML SYRINGE SUB-Q (08:45)
[2023-09-30] MEDS: SCOPOLAMINE 1 MG PATCH 1 PATCH TRANSDERM (08:45)
[2023-09-30] MEDS: SODIUM BICARBONATE TAB 650 MG TABLET FEED TUBE ×2 (08:46→17:25)
--- NOTE | 2023-09-30 09:21 | P.PNNP_ITS ---
Progress Note: A&P Assessment and Plan (1) MOISÉS (acute kidney injury): Code(s): N17.9 - Acute kidney failure, unspecified Status: Acute Assessment and Plan: * multiple episodes noted since admission * slow improvement noted * multifactorial issues present: * prerenal factors * previous relative hypotension (sometimes as low as 80s systolic) * previous ongoing use of ARB (losartan) * previous IV ibuprofen use * contrast exposure (CT scan on 08/04/23) * recurrent infection/sepsis (suspect major component) * evaluation during this hospital stay: * renal ultrasound okay * urine electrolytes prerenal * urine eosinophils negative * CPK mildly elevated (but not likely to affect kidney function) * still with reasonable urine output (without use of diuretics) * metabolic acidosis noted - on sodium bicarbonate per tube * continue to follow repeat labs and UOP (2) Hypernatremia: Code(s): E87.0 - Hyperosmolality and hypernatremia Status: Acute Assessment and Plan: * improving * presumably due to free water deficit * however, use of sodium bicarbonate for metabolic acidosis could be contributing * backing off on oral bicarbonate since renal function improving * increase free water flushes and titrate as needed * use D5W IVFs PRN as well (3) Sepsis: Qualifiers: Acute renal failure type: unspecified Sepsis acute organ dysfunction status: with acute organ dysfunction Sepsis type: sepsis due to unspecified organism Severe sepsis acute organ dysfunction type: acute renal failure Severe sepsis shock status: without septic shock Qualified Code(s): A41.9 - Sepsis, unspecified organism; R65.20 - Severe sepsis without septic shock; N17.9 - Acute kidney failure, unspecified Code(s): A41.9 - Sepsis, unspecified organism Status: Acute Assessment and Plan: * remains hemodynamically stable * off all vasopressor therapy * multiple issues/etiologies: * recurrent abdominal abscesses as noted by imaging to date * peritonitis (see recent ascites fluid cultures) * abdominal drains in place * on antibiotics (4) Metabolic acidosis: Code(s): E87.20 - Acidosis, unspecified Status: Acute Assessment and Plan: * improving * presumably due to MOISÉS/ARF and uremia * lactic acid in normal range * wean sodium bicarbonate as tolerated (5) Acute respiratory failure: Qualifiers: Respiratory failure complication: hypoxia and hypercapnia Qualified Code(s): J96.01 - Acute respiratory failure with hypoxia; J96.02 - Acute respiratory failure with hypercapnia Code(s): J96.00 - Acute respiratory failure, unspecified whether with hypoxia or hypercapnia Status: Acute Assessment and Plan: * s/p tracheostomy for prolonged ventilator weaning * complicated by weakness and severe deconditioning * weaning as tolerated * continue supportive therapy (6) Pelvic abscess in male: Code(s): K65.1 - Peritoneal abscess Status: Acute Assessment and Plan: * as noted by recent CT imaging * s/p drainage catheter placement by IR * on antibiotics * Surgery managing (7) Decubitus ulcer: Code(s): L89.90 - Pressure ulcer of unspecified site, unspecified stage Status: Acute Assessment and Plan: * s/p debridement and diverting colostomy * local wound care * Surgery following (8) Anemia: Qualifiers: Anemia type: other cause Other causes of anemia: chronic disease, other Q
--- NOTE | 2023-09-30 09:21 | PM.PNNEP ---
Progress Note: A&P Assessment and Plan (1) MOISÉS (acute kidney injury): Code(s): N17.9 - Acute kidney failure, unspecified Status: Acute Assessment and Plan: multiple episodes noted since admission slow improvement noted multifactorial issues present: prerenal factors previous relative hypotension (sometimes as low as 80s systolic) previous ongoing use of ARB (losartan) previous IV ibuprofen use contrast exposure (CT scan on 08/04/23) recurrent infection/sepsis (suspect major component) evaluation during this hospital stay: renal ultrasound okay urine electrolytes prerenal urine eosinophils negative CPK mildly elevated (but not likely to affect kidney function) still with reasonable urine output (without use of diuretics) metabolic acidosis noted - on sodium bicarbonate per tube continue to follow repeat labs and UOP (2) Hypernatremia: Code(s): E87.0 - Hyperosmolality and hypernatremia Status: Acute Assessment and Plan: improving presumably due to free water deficit however, use of sodium bicarbonate for metabolic acidosis could be contributing backing off on oral bicarbonate since renal function improving increase free water flushes and titrate as needed use D5W IVFs PRN as well (3) Sepsis: Qualifiers: Acute renal failure type: unspecified Sepsis acute organ dysfunction status: with acute organ dysfunction Sepsis type: sepsis due to unspecified organism Severe sepsis acute organ dysfunction type: acute renal failure Severe sepsis shock status: without septic shock Qualified Code(s): A41.9 - Sepsis, unspecified organism; R65.20 - Severe sepsis without septic shock; N17.9 - Acute kidney failure, unspecified Code(s): A41.9 - Sepsis, unspecified organism Status: Acute Assessment and Plan: remains hemodynamically stable off all vasopressor therapy multiple issues/etiologies: recurrent abdominal abscesses as noted by imaging to date peritonitis (see recent ascites fluid cultures) abdominal drains in place on antibiotics (4) Metabolic acidosis: Code(s): E87.20 - Acidosis, unspecified Status: Acute Assessment and Plan: improving presumably due to MOISÉS/ARF and uremia lactic acid in normal range wean sodium bicarbonate as tolerated (5) Acute respiratory failure: Qualifiers: Respiratory failure complication: hypoxia and hypercapnia Qualified Code(s): J96.01 - Acute respiratory failure with hypoxia; J96.02 - Acute respiratory failure with hypercapnia Code(s): J96.00 - Acute respiratory failure, unspecified whether with hypoxia or hypercapnia Status: Acute Assessment and Plan: s/p tracheostomy for prolonged ventilator weaning complicated by weakness and severe deconditioning weaning as tolerated continue supportive therapy (6) Pelvic abscess in male: Code(s): K65.1 - Peritoneal abscess Status: Acute Assessment and Plan: as noted by recent CT imaging s/p drainage catheter placement by IR on antibiotics Surgery managing (7) Decubitus ulcer: Code(s): L89.90 - Pressure ulcer of unspecified site, unspecified stage Status: Acute Assessment and Plan: s/p debridement and diverting colostomy local wound care Surgery following (8) Anemia: Qualifiers: Anemia type: other cause Other causes of anemia: chronic disease, other Qualified Code(s): D63.8 - Anemia in other chronic diseases classified elsewhere Code(s): D64.9 - Anemia, unspecified Status: Acute Assessment and Plan: due to operative interventions, acute illness and MOISÉS getting Epogen 3 times a week wean this off as renal function improves follow trend of H/H Not much else to add from renal perspective - will continue to follow intermittently. Subjective Date/time seen: 09/30/23 09:21 Interval history:
--- NOTE | 2023-09-30 10:16 | PCFNICU ---
ICU Rounding Note: Pt current nutrition is Vital AF 1.2 @ 70 ml/h with 300 ml water flushes q 4 hours. Nutrition recommendation: Continue current tube feeding orders with no changes Last recorded weight is 114.2 kg. Bowel Motility: +1 BM 09/30/22 Labs Reviewed: Hgb 9.8, Hct 33.8, Na 147 (coming down from 153), GFR 39, BUN 57, Cre 1.7 Meds Noted: Protonix, Zosin, Heparin, synthroid Skin: drains to abdomen; friction to neck Additional Notes: Tolerating tube feeding at goal rate 70 ml/h: 1848 kcal, 116 g protein, 1249 ml free water. Flushes increased to 300 ml q 4 hours. 1800 ml total + free water from formula = 3050 ml/day. Sodium and BUN coming down. Following daily in ICU rounds. Will montior weight, labs, skin, meds, TPN every Saturday and Saturday. .
--- NOTE | 2023-09-30 10:24 | PCNFU ---
Nutrition Follow-Up Complete: Swallowing Diffuculties as related to mentation/risk of aspiration as evidenced by NPO. Goal: Meet estimated nutritional needs - Goal being met with tube feeding Pt current nutrition is Nepro @ 50 ml/h (goal): 1980 kcal, 89 g protein, 800 ml free water. Flush 30 ml q 4 h. Nutrition recommendation: Continue with current nutrition care plan and tube feeding orders. Agree with orders. Last recorded weight is 114.2 kg. Bowel Motility: Liquid stools. FMS was pulled out Labs Reviewed: Hgb 8.7, Hct 29.1, K+ 3.3, GFR 8, BUN 34, Cre 6.4, Glu 145 Meds Noted: Zofran, lovenox, seroquel. No sedation, no pressors Skin: Incision Additional Notes: PEG was replaced, tube feeding resumed per PEG @ Nepro 50 ml/h. Continue with orders. Will montior weight, labs, skin, meds, TPN every Saturday and Saturday.
--- NOTE | 2023-09-30 10:40 | PC.NURSE ---
Patient transferred to ICU#3 via bed without issue. Family at bedside.
--- NOTE | 2023-09-30 11:27 | PM.IMPN ---
Progress Note: A&P Assessment and Plan (1) Acute respiratory failure: Qualifiers: Respiratory failure complication: hypoxia and hypercapnia Qualified Code(s): J96.01 - Acute respiratory failure with hypoxia; J96.02 - Acute respiratory failure with hypercapnia Code(s): J96.00 - Acute respiratory failure, unspecified whether with hypoxia or hypercapnia Status: Acute Assessment and Plan: Patient admitted for elective repair of a large right inguinal hernia on 08/02/23. Post-operatively, he developed ileus, peritonitis, AFib/RVR, MOISÉS and HoTN. He was moved to the ICU on 08/06 for HoTN. On the morning of 08/15, patient developed acute respiratory distress. ABG 7.37/62/58 so BiPAP ordered but repeat ABG 7.15/101/91 so patient intubated 08/15. CXR reviewed showing diffuse lung disease c/w edema vs PNA vs atelectasis Trach placed 08/30; Trach had to be replaced on 09/09 ENT performed tracheoscopy 09/13 showing the trachea does curve into the anterior tracheal wall but patent Remains on MV. Tolerating trach trials. Appreciate supervisor vendor quality and ENT input. Discussed Wean vent as tolerated (2) Sepsis: Qualifiers: Acute renal failure type: unspecified Sepsis acute organ dysfunction status: with acute organ dysfunction Sepsis type: sepsis due to unspecified organism Severe sepsis acute organ dysfunction type: acute renal failure Severe sepsis shock status: without septic shock Qualified Code(s): A41.9 - Sepsis, unspecified organism; R65.20 - Severe sepsis without septic shock; N17.9 - Acute kidney failure, unspecified Code(s): A41.9 - Sepsis, unspecified organism Status: Acute Assessment and Plan: Currently being treated for cholecystitis + pelvic abscesses UCx 08/05, 08/06, 08/16 negative GB Cx 08/06 growing enterococcus but unable to perform sensitivities; treated with a course of linezolid stopped 08/19. Abscess Cx 08/06 Prevotella that is beta-lactamase positive BCx 08/06, 08/10 and 08/16 negative. MRSA nasal swab 08/[address] A/P 08/13 showing multiple intraperitoneal abscesses similar to 08/09 with worsening mass involving the right inguinal canal and right scrotum. 08/14: Multiple Abd drains placed with culture growing H. parainfluenza and prevotella (no sensitivities but beta lactamase positive) CT A/P 08/18 slight increase in fluid collection adjacent to LLQ pigtail drain measuring 3 cm, other fluid collections are either stable or slightly smaller in size, stable right groin infected hematoma, cystitis versus bladder wall thickening, Weathers catheter in place but balloon not visualized and mild fecal impaction. Tx with meropenem, linezolid. Micafungin added 08/11 he completed a course of linezolid stopped 08/19. meropenem changed to Cefepime and Flagyl. Flagyl and Cefepime stopped 08/23 Micafungin stopped 08/25 after 14 days course Zosyn started 08/23 through 08/26 WBC remaining normal, fevers resolved so All abx stopped on 08/26 -------- Recurrent fevers so re-cultured and Abx resumed 09/01 BCx 09/01, 09/07 negative Sputum Cx 09/01 negative UCx 09/01 negative; UCx 09/07 growing 10-49K ketan parapsilosis UE/LE Dopplers negative for DVT 09/07 Paracentesis 09/09 returning purulent fluid with cx growing Bacteroides, klebsiella pneumoniae. CT A/P 09/11 showing LLQ abscess 14cm and Pelvic abscess 12cm. Abd and pelvic drains placed 09/11: -- 1st cx: klebsiella pneumoniae CRE -- 2nd cx: Yeast and Klebsiella pneumoniae CRE Started on Flagyl and Rocephin 09/11 but Rocephin changed to Avycaz on 09/15; Flagyl stopped 09/23/23 Scrotal US 09/12 showing 1cm left epididymis mass likely benign and small left hydrocele with septation. Not felt to have scrotal abscess Diflucan started 09/07 and stopped 09/12 CT A/P 09/18 showing decompressed abscess cavities. WBC normal and fevers resolved. Drain output slowing Avycaz stopped 09/28/23 Monitor closely off abx (3) Pelvic abscess in male: Code(s):
[2023-09-30 11:35] LABS: Glucose Point of Care 115 mg/dl (65-105)
--- NOTE | 2023-09-30 12:40 | PC.NURSE ---
Updated daughter, Ambika, via telephone on patient's condition and plan of care.
--- NOTE | 2023-09-30 17:18 | PM.PNGS ---
Progress Note: A&P Assessment and Plan (1) Respiratory failure: Qualifiers: Chronicity: chronic Respiratory failure complication: hypercapnia Qualified Code(s): J96.12 - Chronic respiratory failure with hypercapnia Code(s): J96.90 - Respiratory failure, unspecified, unspecified whether with hypoxia or hypercapnia Status: Chronic Assessment and Plan: No change, no attempts to stop pressure support (2) S/P partial colectomy: Code(s): Z90.49 - Acquired absence of other specified parts of digestive tract Status: Acute Assessment and Plan: Doing well, tolerating tube feeds, good colostomy output. 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 Continue collagenase dressing changes (4) Abdominal abscess: Status: Acute Assessment and Plan: Well drained. No signs of infection or sepsis. Drain outputs have both decreased significantly. Continue to monitor. Subjective Subjective Date/Time Seen: 09/30/23 17:18 Patient reports: no new complaints, bowel movement and afebrile Exam Const: General: comfortable and tired appearing GI: Inspection: non-distended, incision (Dry, healing) and other (Output from both pigtail catheters has dropped off) GI Palp: Yes Soft to palpation and No Tenderness to palpation present (GI) Auscultation: normoactive bowel sounds : Male General Exam: Yes edema Scrotum: edematous Urinary Catheter: Urinary Catheter: patent and draining Objective Data Vital Signs Vital Signs: Vital Signs - 24 hr 09/29/23 17:42 09/29/23 18:00 09/29/23 18:00 Temperature 36.8 C Pulse Rate 93 91 91 Respiratory Rate 17 Blood Pressure 154/98 H Pulse Oximetry 97 97 Oxygen Delivery Mechanical Ventilation Fraction of Inspired Oxygen 09/29/23 20:00 09/29/23 20:00 09/29/23 20:04 Temperature 37.1 C Pulse Rate 94 87 Respiratory Rate 20 Blood Pressure 146/95 H Pulse Oximetry 98 98 Oxygen Delivery Mechanical Ventilation Fraction of Inspired Oxygen 30 09/29/23 20:00 09/29/23 20:00 09/29/23 22:00 Temperature Pulse Rate 87 92 83 Respiratory Rate 20 Blood Pressure Pulse Oximetry 98 Oxygen Delivery Mechanical Ventilation Fraction of Inspired Oxygen 09/29/23 22:00 09/29/23 22:57 09/30/23 00:00 Temperature 37.0 C 36.9 C Pulse Rate 86 76 83 Respiratory Rate 21 H 19 Blood Pressure 110/71 120/74 Pulse Oximetry 97 98 97 Oxygen Delivery Mechanical Ventilation Fraction of Inspired Oxygen 30 09/30/23 00:00 09/30/23 00:00 09/30/23 00:00 Temperature Pulse Rate 83 87 Respiratory Rate 19 Blood Pressure Pulse Oximetry 97 Oxygen Delivery Mechanical Ventilation Fraction of Inspired Oxygen 30 30 09/30/23 01:59 09/30/23 01:59 09/30/23 02:25 Temperature 36.9 C Pulse Rate 83 84 93 Respiratory Rate 20 Blood Pressure 161/85 H Pulse Oximetry 98 98 Oxygen Delivery Mechanical Ventilation Fraction of Inspired Oxygen 30 09/30/23 04:00 09/30/23 04:00 09/30/23 04:00 Temperature 36.9 C Pulse Rate 89 89 Respiratory Rate 20 20 Blood Pressure 117/73 Pulse Oximetry 96 96 Oxygen Delivery Mechanical Ventilation Fraction of Inspired Oxygen 30 30 09/30/23 04:00 09/30/23 08:30 09/30/23 08:00 Temperature 36.8 C Pulse Rate 89 82 84 Respiratory Rate 18 Blood Pressure 127/78 Pulse Oximetry 98 100 Oxygen Delivery Mechanical Ventilation Fraction of Inspired Oxygen 30 09/30/23 08:00 09/30/23 08:00 09/30/23 08:00 Temperature Pulse Rate 78 Respiratory Rate Blood Pressure Pulse Oximetry 98 Oxygen Delivery Mechanical Ventilation Fraction of Inspired Oxygen 30 30 09/30/23 10:00 09/30/23 10:00 09/30/23 10:50 Temperature 36.9 C Pulse Rate 88 88 81 Respiratory Rate 20 Blood Pressure 114/52 L Pulse Oximetry
[2023-09-30 17:31] LABS: Glucose Point of Care 102 mg/dl (65-105)
[2023-09-30] MEDS: QUEtiapine FUMARATE 25 MG TABLET PO (21:14)
[2023-10-01] VITALS (21 sets, daily range): BP systolic 109–139; BP diastolic 74–94; PULSE 80–106; RESP 13–24; TEMP 37–37.6; O2SAT 96–100
[2023-10-01 00:34] LABS: Glucose Point of Care 108 mg/dl (65-105)
[2023-10-01] MEDS: CENTRAL LINE FLUSH 10 ML IV PUSH ×3 (05:46→21:46)
[2023-10-01] MEDS: LEVOTHYROXINE SODIUM 100 MCG TABLET FEED TUBE (05:46)
[2023-10-01 06:12] LABS: Alanine Aminotransferase 34 U/L (6-50); Albumin Level 3.2 g/dL (3.5-5.1); Alkaline Phosphatase 106 U/L (38-126); Anion Gap 12 mmol/L (8-16); Aspartate Amino Transferase 37 U/L (17-59); Bilirubin,Total 0.6 mg/dL (0.2-1.3); Blood Urea Nitrogen 54 mg/dL (9-20); Calcium 8.3 mg/dL (8.4-10.2); Carbon Dioxide 20 mmol/L (22-30); Chloride 111 mmol/L (98-107); Estimated CRCL calculation 47 ml/min; Estimated Glomerular Filt Rate 48; Glucose 107 mg/dL (65-110); Potassium 4.2 mmol/L (3.4-5.0); Sodium 143 mmol/L (137-145)
[2023-10-01] MEDS: PANTOPRAZOLE SODIUM IV 40 MG VIAL IV PUSH ×2 (08:08→21:46)
[2023-10-01] MEDS: ENOXAPARIN 40 MG/0.4 ML SYRINGE SUB-Q (08:08)
[2023-10-01] MEDS: COLLAGENASE OINT 30 GM TUBE 1 APPLIC TOPICAL (08:08)
[2023-10-01] MEDS: TOLNAFTATE 1% POWDER 45 GM BTL 1 APPLIC TOPICAL ×2 (08:08→21:46)
[2023-10-01] MEDS: SODIUM BICARBONATE TAB 650 MG TABLET FEED TUBE (08:08)
[2023-10-01] MEDS: ASPIRIN 325 MG TABLET FEED TUBE (08:08)
[2023-10-01] MEDS: EPOETIN ALFA-EPBX 10,000 UNITS/ML VIAL 10000 UNITS SUB-Q (08:22)
--- NOTE | 2023-10-01 11:10 | PCFNICU ---
ICU Rounding Note: Pt current nutrition is Vital AF 1.2 at 70 ml/hr. Last recorded weight is 115.7 kg, up from 106 kg on admit. Bowel Motility: +BM reported 10/01 Labs Reviewed:Cr 1.4,BUN 54, GFR 48, Alb 3.2 Meds Noted:Lovenox, Protonix, Synthroid. Skin: WNL Additional Notes: Patient current with Trach and PEG. Tube feedings are being tolerated at 70 ml/hr providing 1848 kcals/116 gms protein/1249 ml water. Water flush decreased from 300 ml q 4 hours to 100 ml q 4 hours. Na 143 today. Agree with diet orders. Following daily in ICU rounds. Will monitor weight, labs, skin, meds, TPN every Saturday and Saturday.
[2023-10-01 12:07] LABS: Glucose Point of Care 112 mg/dl (65-105)
--- NOTE | 2023-10-01 12:27 | P.PNINT_ITS ---
Progress Note: A&P Assessment and Plan (1) Acute respiratory failure: Qualifiers: Respiratory failure complication: hypoxia and hypercapnia Qualified Code(s): J96.01 - Acute respiratory failure with hypoxia; J96.02 - Acute respiratory failure with hypercapnia Code(s): J96.00 - Acute respiratory failure, unspecified whether with hypoxia or hypercapnia Status: Acute Assessment and Plan: Acute hypoxic and hypercarbic respiratory failure. Failed multiple days off weaning trials -08/30: Tracheostomy placed 09/09 patient appears to have developed a leak in his tracheostomy cuff. NEW TRACHEOSTOMY was inserted by ENT on 09/09 09/10: Tolerated pressure support ventilation 14/8 all day, was placed on CMV mode overnight 09/11: Placed on pressure support ventilation 14/8 and tolerating for now will switch to CMV mode overnight 09/14: Patient did not tolerate pressure support ventilation as he was breathing only 8-9 times a minute, was placed on ASV mode and tolerated all day long. Placed on CMV overnight 09/15 patient tolerated pressure support ventilation 10/5 all day, was placed on CMV over 09/16: Total PSV 8/5 all day and through the night -will continue PSV 8/5 today too, patient gets tired, tachypneic, tachycardic will put him back on CMV mode 09/18: Patient was placed on CMV mode overnight after he got tired and was tachypneic on pressure support ventilation 8/5. Will give a break today -09/20: Did not tolerate pressure support ventilation or ASV -09/21 and 09/22: Tolerated pressure support ventilation 10/5 all day long, was placed on CMV mode overnight -09/23: Patient has been tolerating pressure support ventilation 10/5 and tolerating all day and is placed on CMV of during the night. -09/24: Tolerated PSV 10/5 all day and was placed overnight on CMV -09/[address] patient on PSV 10/5 and try to see if he can tolerate 8/5. PEG tube placement today, 09/25/202209/[address] patient PSV 10/5 and tolerated for few hours 09/28 tolerated PSV 10/5 for 10 hours yesterday 09/29 Pt tolerated PSV for few hours yesterday and was switched back to CMV 10/01 tolerated pressure support ventilation 8/5 for 24 hours, continue. -patient will require LTAC facility for rehab and decannulation of the trache ostomy (2) Sepsis: Qualifiers: Sepsis type: sepsis due to unspecified organism Sepsis acute organ dysfunction status: with acute organ dysfunction Severe sepsis acute organ dysfunction type: acute renal failure Acute renal failure type: unspecified Severe sepsis shock status: without septic shock Qualified Code(s): A41.9 - Sepsis, unspecified organism; R65.20 - Severe sepsis without septic shock; N17.9 - Acute kidney failure, unspecified Code(s): A41.9 - Sepsis, unspecified organism Status: Acute Assessment and Plan: Secondary to peritonitis. Patient also appears to have consolidation of the lower lobes on the CT done which could be aspiration versus atelectasis 08/06: Repeat CT scan of abdomen and pelvis showed gallbladder distention and also fluid collection likely exudative 08/06 patient underwent cholecystostomy tube placement and drainage of peritoneal abscess-cultures have been sent 08/06: IR placed drain in abscess and right and gallbladder which are in place Gallbladder drain culture grew Enterococcus Abscess drain culture grew prevotella Patient continues to have elevated WBC count and low-grade fevers 08/09 CT scan shows multiple peritoneal fluid collections. Although patient has drain in place, may not provide adequate source control due to multiple fluid locations. Recommend re-evaluation for abdominal washout d
[2023-10-01] MEDS: ONDANSETRON INJ 4 MG/2 ML VIAL IV PUSH (14:20)
--- NOTE | 2023-10-01 14:21 | PC.NURSE ---
Patient c/o nausea,Zofran IVP given, Dr. Whitfield notified. Tube feeding held at this time. No s/s of respiratory distress.
--- NOTE | 2023-10-01 14:39 | PM.PNGS ---
Progress Note: A&P Assessment and Plan (1) S/P partial colectomy: Code(s): Z90.49 - Acquired absence of other specified parts of digestive tract Status: Acute Assessment and Plan: Drain outputs decreasing significantly. Probably DC left flank drain tomorrow. 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 Continue collagenase dressing changes. (3) Abdominal abscess: Status: Acute Assessment and Plan: Improving as above. Drain outputs much less. Probably DC left flank drain tomorrow (4) Respiratory failure: Qualifiers: Chronicity: chronic Respiratory failure complication: hypercapnia Qualified Code(s): J96.12 - Chronic respiratory failure with hypercapnia Code(s): J96.90 - Respiratory failure, unspecified, unspecified whether with hypoxia or hypercapnia Status: Chronic Assessment and Plan: Tolerated pressure support of 8/5 overnight and today. Discussed with Dr. Whitfield (5) Protein-calorie malnutrition, severe: Code(s): E43 - Unspecified severe protein-calorie malnutrition Status: Acute Assessment and Plan: Tolerating tube feeds well (6) History of tracheostomy: Code(s): Z98.890 - Other specified postprocedural states Status: Chronic Assessment and Plan: Working well Subjective Subjective Date/Time Seen: 10/01/23 14:39 Patient reports: no new complaints, afebrile and other (Comfortable, more awake) Review of Systems Review of Systems: ROS unobtainable: Yes unobtainable due to medical condition Exam Const: General: comfortable and no acute distress Resp: Effort & Inspection: normal respiratory effort Auscultation: clear to auscultation bilaterally Cardio: Rate: regular rate Rhythm: regular rhythm GI: Inspection: non-distended, incision (Healing), no visible herniation and other (Drain outputs continue to decrease especially left flank) GI Palp: Yes Soft to palpation, No Guarding due to palpation present (GI) and No Rebound tenderness present Auscultation: normal bowel sounds Extrem: General: no calf tenderness and no edema Objective Data Vital Signs Vital Signs: Vital Signs - 24 hr 09/30/23 16:00 09/30/23 16:00 09/30/23 16:00 Temperature 36.9 C Pulse Rate 99 104 H Respiratory Rate 16 Blood Pressure 139/85 Pulse Oximetry 98 Oxygen Delivery Fraction of Inspired Oxygen 30 09/30/23 16:00 09/30/23 16:48 09/30/23 18:00 Temperature Pulse Rate 79 96 Respiratory Rate Blood Pressure Pulse Oximetry 97 99 Oxygen Delivery Mechanical Ventilation Mechanical Ventilation Fraction of Inspired Oxygen 30 30 09/30/23 18:00 09/30/23 20:00 09/30/23 20:00 Temperature 37.0 C 37.1 C Pulse Rate 101 H 108 H Respiratory Rate 17 18 Blood Pressure 130/74 134/82 Pulse Oximetry 100 97 Oxygen Delivery Fraction of Inspired Oxygen 30 09/30/23 20:00 09/30/23 20:00 09/30/23 21:01 Temperature Pulse Rate 89 108 H 105 H Respiratory Rate 18 Blood Pressure Pulse Oximetry 97 96 Oxygen Delivery CPAP Mechanical Ventilation Fraction of Inspired Oxygen 30 30 09/30/23 22:00 09/30/23 22:00 09/30/23 23:58 Temperature 37.3 C Pulse Rate 103 H 98 99 Respiratory Rate 18 Blood Pressure 133/79 Pulse Oximetry 98 99 Oxygen Delivery Mechanical Ventilation Fraction of Inspired Oxygen 30 10/01/23 00:00 10/01/23 00:00 10/01/23 00:00 Temperature 37.0 C Pulse Rate 94 94 Respiratory Rate 19 19 Blood Pressure 135/91 H Pulse Oximetry 100 100 Oxygen Delivery Mechanical Ventilation Fraction of Inspired Oxygen 30 30 10/01/23 00:00 10/01/23 02:00 10/01/23 02:00 Temperature 37.3 C Pulse Rate 90 103 H 96 Respiratory Rate 18 Blood Pressure 133/76 Pulse Oximetry 99 Oxygen Delivery Fraction of Inspired Oxygen
[2023-10-01 17:53] LABS: Glucose Point of Care 165 mg/dl (65-105)
[2023-10-01] MEDS: QUEtiapine FUMARATE 25 MG TABLET PO (21:46)
[2023-10-01] MEDS: HYDROmorphone HCL INJ (*CRX) 1 MG/ML SYR 0.5 MG IV PUSH (21:46)
[2023-10-01 23:40] LABS: Glucose Point of Care 93 mg/dl (65-105)
[2023-10-02] VITALS (25 sets, daily range): BP systolic 90–138; BP diastolic 65–92; PULSE 75–101; RESP 12–20; TEMP 36.6–37.2; O2SAT 96–99
[2023-10-02 04:53] LABS: Base Excess ABG -1.3 mEq/l (+/-2.0); Carboxyhemoglobin 0.3 % THb (0-2.0); Device VENTILATOR; Fractional Inspired Oxygen 30 %; HCO3 ABG 23.7 mEq/l (22.0-26.0); Methemoglobin ABG 0.2 %THb (0-1.5); Modified Allen's Test Pass; Oxygen Content ABG 14.6 %vol (16.0-22.0); Oxygen Saturation ABG 97.5 % (95.0-100.0); Oxyhemoglobin 96.3 % THb (90.0-100.0); PCO2 ABG 40.7 mmHg (35.0-45.0); PO2 ABG 101.1 mmHg (80.0-100.0); PO2 FiO2 Ratio Arterial Blood 3.37 %; Reduced Hemoglobin 3.2 %THb (0-5.0); Site Drawn LEFT RADIAL; Total Hemoglobin 10.7 g/dL (12.0-18.0); pH ABG 7.383 (7.350-7.450)
[2023-10-02 04:54] LABS: Arterial Blood Gas PEEP 5 cmH2O; Arterial Blood Gas Vent Mode SPONTANEOUS; Peak Inspiratory Pressure 8 cmH2O
[2023-10-02] MEDS: CENTRAL LINE FLUSH 10 ML IV PUSH ×3 (05:46→20:47)
[2023-10-02] MEDS: LEVOTHYROXINE SODIUM 100 MCG TABLET FEED TUBE (05:46)
[2023-10-02 05:59] LABS: Basophils Absolute Auto 0.1 K/mm3 (0.0-0.1); Basophils Percent Auto 0.7 % (0.2-1.2); Eosinophils Absolute Auto 0.8 K/mm3 (0-0.3); Eosinophils Percent Auto 9.5 % (0-4.4); Hemoglobin 9.6 g/dL (14.0-18.0); Immature Granulocyte Absolute 0.04 K/mm3 (0.00-0.031); Immature Granulocyte Percent A 0.5 % (0-0.5); Lymphocytes Absolute Auto 1.98 K/mm3 (0.9-3.2); Lymphocytes Percent Auto 23.7 % (18.3-44.2); Mean Corpuscular Hemoglobin 30.3 pg (26-34); Mean Corpuscular Volume 100.9 fl (80-100); Mean Platelet Volume 10.4 fl (7.4-10.4); Monocytes Absolute Auto 0.5 K/mm3 (0.1-0.6); Monocytes Percent Auto 6.2 % (2.6-8.5); Neutrophils Percent Auto 59.4 % (45.5-73.1); Platelet Count Result 275 k/mm3 (150-375); Red Blood Count 3.17 M/mm3 (4.6-6.20); White Blood Count 8.4 K/mm3 (4.5-10.0)
[2023-10-02 06:17] LABS: Alanine Aminotransferase 26 U/L (6-50); Albumin Level 3.2 g/dL (3.5-5.1); Alkaline Phosphatase 99 U/L (38-126); Anion Gap 7 mmol/L (8-16); Aspartate Amino Transferase 22 U/L (17-59); Bilirubin,Total 0.6 mg/dL (0.2-1.3); Blood Urea Nitrogen 48 mg/dL (9-20); Calcium 8.5 mg/dL (8.4-10.2); Carbon Dioxide 25 mmol/L (22-30); Chloride 112 mmol/L (98-107); Estimated CRCL calculation 44 ml/min; Estimated Glomerular Filt Rate 45; Glucose 91 mg/dL (65-110); Potassium 4.1 mmol/L (3.4-5.0); Sodium 144 mmol/L (137-145)
[2023-10-02] MEDS: PANTOPRAZOLE SODIUM IV 40 MG VIAL IV PUSH ×2 (08:02→20:46)
[2023-10-02] MEDS: TOLNAFTATE 1% POWDER 45 GM BTL 1 APPLIC TOPICAL ×2 (08:02→20:46)
[2023-10-02] MEDS: ENOXAPARIN 40 MG/0.4 ML SYRINGE SUB-Q (08:02)
[2023-10-02] MEDS: COLLAGENASE OINT 30 GM TUBE 1 APPLIC TOPICAL (08:02)
[2023-10-02] MEDS: ASPIRIN 325 MG TABLET FEED TUBE (08:02)
--- NOTE | 2023-10-02 11:27 | PCFNICU ---
ICU Rounding Note: Pt current nutrition is Vital AF 1.2 at 70 ml/hr. Last recorded weight is 116 kg Bowel Motility: +BM 10/02 Labs Reviewed:Cr 1.5,BUN 48, GFR 45, Alb 3.2,Hgb 9.6,Hct 32.0 Meds Noted:Lovenox, Protonix Skin: WNL: Additional Notes: Patient is current with Trach and PEG. Tube feeding on hold yesterday due to nausea. Restarted and tolerating Vital AF 1.2 at 70 ml/hr. Water flush 100 ml q 4 hours. Plans for surgery to remove one drain today. Discharge plan is LTAC when medically able. Following daily in ICU rounds. Will monitor weight, labs, skin, meds, TPN every Saturday and Saturday.
[2023-10-02 11:33] LABS: Glucose Point of Care 98 mg/dl (65-105)
--- NOTE | 2023-10-02 14:13 | PM.PNGS ---
Progress Note: A&P Assessment and Plan (1) S/P partial colectomy: Code(s): Z90.49 - Acquired absence of other specified parts of digestive tract Status: Acute Assessment and Plan: Good bowel sounds and tolerating tube feedings for the most part. Had a couple of emesis and tube feedings were halted. Etiology unclear. There was no residual tube feed. Feedings have been restarted and no problems thus far. 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 Status: Acute Assessment and Plan: Perianal wound healing (4) Respiratory failure: Qualifiers: Chronicity: chronic Respiratory failure complication: hypercapnia Qualified Code(s): J96.12 - Chronic respiratory failure with hypercapnia Code(s): J96.90 - Respiratory failure, unspecified, unspecified whether with hypoxia or hypercapnia Status: Chronic Assessment and Plan: Continues 8/5 pressure support (5) Protein-calorie malnutrition, severe: Code(s): E43 - Unspecified severe protein-calorie malnutrition Status: Acute Assessment and Plan: Receiving tube feedings at goal rate (6) History of tracheostomy: Code(s): Z98.890 - Other specified postprocedural states Status: Chronic Assessment and Plan: Working well Subjective Subjective Date/Time Seen: 10/02/23 14:13 Patient reports: no new complaints, feels better, bowel movement, vomiting (Had couple emesis, no residual tube feeds) and afebrile Exam Const: General: comfortable, alert, awake and tired appearing GI: Inspection: incision (Both incisions healing well) and other (No output left flank drain again today) GI Palp: Yes Soft to palpation, No Tenderness to palpation present (GI), No Guarding due to palpation present (GI), No Hernia present and No Palpable mass present Auscultation: normal bowel sounds Other: Anterior pigtail catheter having very little output as well. Objective Data Vital Signs Vital Signs: Vital Signs - 24 hr 10/01/23 14:23 10/01/23 16:00 10/01/23 16:00 Temperature 37.4 C Pulse Rate 99 91 88 Respiratory Rate 20 24 H Blood Pressure 131/82 Pulse Oximetry 96 96 Oxygen Delivery Fraction of Inspired Oxygen 10/01/23 16:00 10/01/23 16:00 10/01/23 17:00 Temperature Pulse Rate 94 Respiratory Rate Blood Pressure Pulse Oximetry 97 98 Oxygen Delivery Mechanical Ventilation Mechanical Ventilation Fraction of Inspired Oxygen 30 30 30 10/01/23 18:00 10/01/23 18:00 10/01/23 19:48 Temperature 37.6 C Pulse Rate 84 84 92 Respiratory Rate 22 H Blood Pressure 113/76 Pulse Oximetry 98 98 Oxygen Delivery Mechanical Ventilation Fraction of Inspired Oxygen 30 10/01/23 20:00 10/01/23 20:00 10/01/23 20:00 Temperature Pulse Rate 92 90 Respiratory Rate 22 H Blood Pressure Pulse Oximetry 98 Oxygen Delivery Mechanical Ventilation Fraction of Inspired Oxygen 30 30 10/01/23 20:00 10/01/23 22:00 10/01/23 22:00 Temperature 37.5 C 37.4 C Pulse Rate 90 95 97 Respiratory Rate 19 13 Blood Pressure 128/85 109/74 Pulse Oximetry 98 97 Oxygen Delivery Fraction of Inspired Oxygen 10/01/23 23:23 10/02/23 00:00 10/02/23 00:00 Temperature 37.1 C Pulse Rate 87 92 Respiratory Rate 17 Blood Pressure 114/69 Pulse Oximetry 98 97 Oxygen Delivery Mechanical Ventilation Fraction of Inspired Oxygen 30 30 10/02/23 00:00 10/02/23 01:45 10/02/23 00:00 Temperature Pulse Rate 92 99 88 Respiratory Rate 17 Blood Pressure Pulse Oximetry 97 98 Oxygen Delivery Mechanical Ventilation Mechanical Ventilation Fraction of Inspired Oxygen 30 30 10/02/23 02:00 10/02/23 02:00 10/02/23 04:00 Temperature 37.1 C Pulse Rate 85 88 82 Respiratory Rate 18 Blood Pressure 111
--- NOTE | 2023-10-02 15:06 | PC.NURSE ---
Up to chair with MAURICE Hernandes and RN. Patient tolerated well. No s/s of distress. Patient c/o fatigue.
[2023-10-02 18:19] LABS: Glucose Point of Care 121 mg/dl (65-105)
[2023-10-02] MEDS: QUEtiapine FUMARATE 25 MG TABLET PO (20:46)
[2023-10-02] MEDS: HYDROmorphone HCL INJ (*CRX) 1 MG/ML SYR 0.5 MG IV PUSH (20:47)
[2023-10-03] VITALS (23 sets, daily range): BP systolic 92–138; BP diastolic 51–88; PULSE 19–100; RESP 14–97; TEMP 37.1–37.4; O2SAT 93–100
[2023-10-03 00:03] LABS: Glucose Point of Care 122 mg/dl (65-105)
[2023-10-03 04:57] LABS: Basophils Absolute Auto 0.1 K/mm3 (0.0-0.1); Basophils Percent Auto 0.6 % (0.2-1.2); Eosinophils Absolute Auto 0.8 K/mm3 (0-0.3); Eosinophils Percent Auto 9.9 % (0-4.4); Hematocrit 32.4 % (42.0-52.0); Hemoglobin 9.6 g/dL (14.0-18.0); Immature Granulocyte Absolute 0.05 K/mm3 (0.00-0.031); Immature Granulocyte Percent A 0.6 % (0-0.5); Lymphocytes Absolute Auto 1.91 K/mm3 (0.9-3.2); Lymphocytes Percent Auto 23.3 % (18.3-44.2); Mean Corpuscular HGB Conc 29.6 g/dl (32-36); Mean Corpuscular Hemoglobin 30.2 pg (26-34); Mean Corpuscular Volume 101.9 fl (80-100); Mean Platelet Volume 10.8 fl (7.4-10.4); Monocytes Absolute Auto 0.5 K/mm3 (0.1-0.6); Monocytes Percent Auto 6.2 % (2.6-8.5); Neutrophils Absolute Auto 4.9 K/mm3 (1.3-6.7); Neutrophils Percent Auto 59.4 % (45.5-73.1); Platelet Count Result 268 k/mm3 (150-375); Red Blood Count 3.18 M/mm3 (4.6-6.20); Red Cell Distribution Width 18.1 % (11.5-14.5); White Blood Count 8.2 K/mm3 (4.5-10.0)
[2023-10-03 05:05] LABS: Alanine Aminotransferase 23 U/L (6-50); Albumin Level 3.3 g/dL (3.5-5.1); Alkaline Phosphatase 97 U/L (38-126); Anion Gap 10 mmol/L (8-16); Aspartate Amino Transferase 22 U/L (17-59); Bilirubin,Total 0.6 mg/dL (0.2-1.3); Blood Urea Nitrogen 52 mg/dL (9-20); Calcium 8.5 mg/dL (8.4-10.2); Carbon Dioxide 22 mmol/L (22-30); Chloride 110 mmol/L (98-107); Estimated CRCL calculation 44 ml/min; Estimated Glomerular Filt Rate 45; Glucose 111 mg/dL (65-110); Magnesium 1.8 mg/dL (1.6-2.3); Potassium 4.2 mmol/L (3.4-5.0); Sodium 142 mmol/L (137-145)
[2023-10-03 05:23] LABS: Anisocytosis 1+ (NORMAL); Macrocytosis 1+ (NORMAL); Platelet Estimate Adequate (Adequate)
[2023-10-03 05:24] LABS: Schistocytes None Seen (NORMAL)
[2023-10-03] MEDS: LEVOTHYROXINE SODIUM 100 MCG TABLET FEED TUBE (06:35)
[2023-10-03] MEDS: CENTRAL LINE FLUSH 10 ML IV PUSH ×3 (06:35→21:37)
[2023-10-03] MEDS: ASPIRIN 325 MG TABLET FEED TUBE (08:27)
[2023-10-03] MEDS: SCOPOLAMINE 1 MG PATCH 1 PATCH TRANSDERM (08:27)
[2023-10-03] MEDS: ENOXAPARIN 40 MG/0.4 ML SYRINGE SUB-Q (08:27)
[2023-10-03] MEDS: PANTOPRAZOLE SODIUM IV 40 MG VIAL IV PUSH ×2 (08:27→21:37)
[2023-10-03] MEDS: COLLAGENASE OINT 30 GM TUBE 1 APPLIC TOPICAL (08:28)
[2023-10-03] MEDS: TOLNAFTATE 1% POWDER 45 GM BTL 1 APPLIC TOPICAL ×2 (08:28→21:37)
[2023-10-03] MEDS: EPOETIN ALFA-EPBX 10,000 UNITS/ML VIAL 10000 UNITS SUB-Q (08:30)
--- NOTE | 2023-10-03 11:47 | PCFNICU ---
ICU Rounding Note: Pt current nutrition is Vital AF 1.22 at 70 ml/hr. Last recorded weight is 116 kg. Bowel Motility: +BM reported 10/02 Labs Reviewed:Glu 111, GFR 45, BUN 52, Cr 1.5,Alb 3.3,Hct 32.4,Hgb 9.6 Meds Noted:Lovenox, Synthroid, Zosyn Skin: WNL Additional Notes: Patient is current with Trach and PEG. Tube feedings are being tolerated of Vital AF 1.2 at goal rate (1848 kcals/116 gms protein/1249 ml water). Flush 100 ml q 4 hours. 1 joanie left to remove. Plans for LTAC upon discharge. Following daily in ICU rounds. Will monitor weight, labs, skin, meds, TPN every Saturday and Saturday.
[2023-10-03 12:16] LABS: Glucose Point of Care 128 mg/dl (65-105)
--- NOTE | 2023-10-03 16:29 | PM.PNGS ---
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 Status: Acute Assessment and Plan: Perianal wound healing (4) Respiratory failure: Qualifiers: Chronicity: chronic Respiratory failure complication: hypercapnia Qualified Code(s): J96.12 - Chronic respiratory failure with hypercapnia Code(s): J96.90 - Respiratory failure, unspecified, unspecified whether with hypoxia or hypercapnia Status: Chronic Assessment and Plan: Continues 8/5 pressure support (5) Protein-calorie malnutrition, severe: Code(s): E43 - Unspecified severe protein-calorie malnutrition Status: Acute Assessment and Plan: Receiving tube feedings at goal rate, no further emesis (6) History of tracheostomy: Code(s): Z98.890 - Other specified postprocedural states Status: Chronic Assessment and Plan: Working well Subjective Subjective Date/Time Seen: 10/03/23 16:29 Patient reports: no new complaints, bowel movement, afebrile and other (Patient is up in a recliner with trach in place) Review of Systems Review of Systems: ROS unobtainable: Yes unobtainable due to medical condition Exam Const: General: comfortable, no acute distress, awake and tired appearing GI: Inspection: incision (Both incisions healing well) and other (Nothing out remaining pigtail catheter today) GI Palp: Yes Soft to palpation, No Tenderness to palpation present (GI), No Hernia present and No Palpable mass present Auscultation: normoactive bowel sounds Objective Data Vital Signs Vital Signs: Vital Signs - 24 hr 10/02/23 16:40 10/02/23 18:00 10/02/23 18:00 Temperature 37.1 C Pulse Rate 101 H 97 97 Respiratory Rate 15 Blood Pressure 110/74 Pulse Oximetry 96 98 Oxygen Delivery Mechanical Ventilation Fraction of Inspired Oxygen 30 10/02/23 20:00 10/02/23 20:00 10/02/23 20:00 Temperature 37.2 C Pulse Rate 94 94 Respiratory Rate 18 18 Blood Pressure 90/73 L Pulse Oximetry 97 97 Oxygen Delivery Mechanical Ventilation Fraction of Inspired Oxygen 30 30 10/02/23 20:00 10/02/23 22:00 10/02/23 21:54 Temperature 37.0 C Pulse Rate 75 89 91 Respiratory Rate 17 Blood Pressure 114/71 Pulse Oximetry 99 Oxygen Delivery Fraction of Inspired Oxygen 10/02/23 23:53 10/02/23 20:02 10/03/23 00:00 Temperature 37.0 C Pulse Rate 83 94 Respiratory Rate 17 Blood Pressure 104/66 Pulse Oximetry 98 97 Oxygen Delivery Mechanical Ventilation Fraction of Inspired Oxygen 30 30 10/03/23 00:00 10/02/23 23:10 10/03/23 00:00 Temperature Pulse Rate 83 92 80 Respiratory Rate 17 Blood Pressure Pulse Oximetry 98 97 Oxygen Delivery Mechanical Ventilation Mechanical Ventilation Fraction of Inspired Oxygen 30 30 10/03/23 02:00 10/03/23 02:00 10/03/23 03:53 Temperature 37.2 C 37.4 C Pulse Rate 90 76 83 Respiratory Rate 18 18 Blood Pressure 106/64 107/71 Pulse Oximetry 98 98 Oxygen Delivery Fraction of Inspired Oxygen 10/03/23 02:10 10/03/23 04:00 10/03/23 04:00 Temperature Pulse Rate 85 85 Respiratory Rate Blood Pressure Pulse Oximetry 98 Oxygen Delivery Mechanical Ventilation Fraction of Inspired Oxygen 30 30 10/03/23 04:00 10/03/23 05:05 10/03/23 06:00 Temperature 37.3 C Pulse Rate 85 87 91 Respiratory Rate 18 22 H Blood Pressure 111/74 Pulse Oximetry 98 97 97 Oxygen Delivery Mechanical Ventilation Mechanical Ventilation Fraction of Inspired Oxygen 30 30 10/03/23 06:00 10/03/23 07:15 10/03/23 08:06 Temperature 37.2 C Pulse R
[2023-10-03] MEDS: QUEtiapine FUMARATE 25 MG TABLET PO (21:37)
[2023-10-04] VITALS (20 sets, daily range): BP systolic 102–158; BP diastolic 70–92; PULSE 76–96; RESP 13–22; TEMP 36.9–37.2; O2SAT 96–100; BMI 11.0
[2023-10-04 00:18] LABS: Glucose Point of Care 110 mg/dl (65-105)
[2023-10-04 05:10] LABS: Basophils Absolute Auto 0.1 K/mm3 (0.0-0.1); Basophils Percent Auto 0.9 % (0.2-1.2); Eosinophils Absolute Auto 0.8 K/mm3 (0-0.3); Eosinophils Percent Auto 10.8 % (0-4.4); Hematocrit 32.3 % (42.0-52.0); Hemoglobin 9.4 g/dL (14.0-18.0); Immature Granulocyte Absolute 0.04 K/mm3 (0.00-0.031); Immature Granulocyte Percent A 0.6 % (0-0.5); Lymphocytes Absolute Auto 1.64 K/mm3 (0.9-3.2); Lymphocytes Percent Auto 23.7 % (18.3-44.2); Mean Corpuscular HGB Conc 29.1 g/dl (32-36); Mean Corpuscular Hemoglobin 29.7 pg (26-34); Mean Corpuscular Volume 102.2 fl (80-100); Mean Platelet Volume 10.5 fl (7.4-10.4); Monocytes Absolute Auto 0.5 K/mm3 (0.1-0.6); Monocytes Percent Auto 7.4 % (2.6-8.5); Neutrophils Absolute Auto 3.9 K/mm3 (1.3-6.7); Neutrophils Percent Auto 56.6 % (45.5-73.1); Platelet Count Result 249 k/mm3 (150-375); Red Blood Count 3.16 M/mm3 (4.6-6.20); White Blood Count 6.9 K/mm3 (4.5-10.0)
[2023-10-04] MEDS: CENTRAL LINE FLUSH 10 ML IV PUSH ×3 (05:12→21:00)
[2023-10-04] MEDS: CENTRAL LINE FLUSH 20 ML IV PUSH (05:12)
[2023-10-04] MEDS: LEVOTHYROXINE SODIUM 100 MCG TABLET FEED TUBE (05:12)
[2023-10-04 06:06] LABS: Glucose Point of Care 117 mg/dl (65-105)
[2023-10-04 06:09] LABS: Alanine Aminotransferase 20 U/L (6-50); Albumin Level 3.4 g/dL (3.5-5.1); Alkaline Phosphatase 93 U/L (38-126); Anion Gap 9 mmol/L (8-16); Aspartate Amino Transferase 24 U/L (17-59); Bilirubin,Total 0.5 mg/dL (0.2-1.3); Blood Urea Nitrogen 49 mg/dL (9-20); Calcium 8.7 mg/dL (8.4-10.2); Carbon Dioxide 24 mmol/L (22-30); Chloride 110 mmol/L (98-107); Estimated CRCL calculation 47 ml/min; Estimated Glomerular Filt Rate 48; Glucose 115 mg/dL (65-110); Potassium 3.7 mmol/L (3.4-5.0); Sodium 143 mmol/L (137-145)
[2023-10-04 06:54] LABS: Macrocytosis 1+ (NORMAL); Platelet Estimate Adequate (Adequate); Schistocytes None Seen (NORMAL)
[2023-10-04] MEDS: ASPIRIN 325 MG TABLET FEED TUBE (09:26)
[2023-10-04] MEDS: PANTOPRAZOLE SODIUM IV 40 MG VIAL IV PUSH (09:26)
[2023-10-04] MEDS: COLLAGENASE OINT 30 GM TUBE 1 APPLIC TOPICAL (09:26)
[2023-10-04] MEDS: ENOXAPARIN 40 MG/0.4 ML SYRINGE SUB-Q (09:26)
[2023-10-04] MEDS: TOLNAFTATE 1% POWDER 45 GM BTL 1 APPLIC TOPICAL ×2 (09:27→20:25)
[2023-10-04] MEDS: diphenhydrAMINE HCl INJ 50 MG/ML VIAL 25 MG IV PUSH ×2 (09:28→21:23)
[2023-10-04] MEDS: SIMETHICONE 80 MG TAB.CHEW PO (11:13)
--- NOTE | 2023-10-04 11:39 | PCNFU ---
Nutrition Follow-Up Complete: Swallowing Difficulties as related to mentation/risk of aspiration as evidenced by NPO. Goal: Meet estimated nutritional needs patient is progressing towards goal. Pt current nutrition is Vital AF 1.2 at 70 ml/hr. Last recorded weight is 117.1 kg Bowel Motility:+BM reported 10/04 Labs Reviewed:Glu 115, Cr 1.4,GFR 48, BUN 49, Alb 3.4 Meds Noted:Protonix, Synthroid Skin: WNL Additional Notes: Patient with Trach and PEG. Tolerating tube feedings of Vital AF 1.2 at 70 ml/hr now. Patient did have increased residuals around 300 ml. Tube feeding restarted. Vital AF is providing 1848 kcals/116 gms protein/1249 ml water. Flush 100 ml q 4 hours. Plans for last drain to be removed within a day or so. Discharge plans LTAC. Will monitor weight, labs, skin, meds, TPN every Saturday and Saturday.
--- NOTE | 2023-10-04 11:47 | PM.PNGS ---
Progress Note: A&P Assessment and Plan (1) S/P partial colectomy: Code(s): Z90.49 - Acquired absence of other specified parts of digestive tract Status: Acute Assessment and Plan: No problems with the surgery at this point. Abdominal incision healing well. Tolerating tube feedings adequately. Abdominal exam benign. Last pigtail catheter drained of anterior abdominal abscess removed today. 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 Continue (4) Abdominal abscess: Status: Acute Assessment and Plan: Resolved by CT scan and pigtail catheter removed today. There are no residual intra-abdominal catheters other than his gastrostomy tube. (5) Respiratory failure: Qualifiers: Chronicity: chronic Respiratory failure complication: hypercapnia Qualified Code(s): J96.12 - Chronic respiratory failure with hypercapnia Code(s): J96.90 - Respiratory failure, unspecified, unspecified whether with hypoxia or hypercapnia Status: Chronic Assessment and Plan: Remains on pressure support only (6) Protein-calorie malnutrition, severe: Code(s): E43 - Unspecified severe protein-calorie malnutrition Status: Acute Assessment and Plan: Receiving tube feeds at goal rate (7) History of tracheostomy: Code(s): Z98.890 - Other specified postprocedural states Status: Chronic Assessment and Plan: Working well. Plan is to go to [facility] next week when bed available. Subjective Subjective Date/Time Seen: 10/04/23 11:47 Patient reports: no new complaints, feels better (Feels good today. Sitting up in recliner again), bowel movement and afebrile Review of Systems Review of Systems: ROS unobtainable: Yes unobtainable due to medical condition Exam Const: General: comfortable, no acute distress and awake Orientation/consciousness: No confusion GI: Inspection: non-distended, incision (Both incisions dry and healing well, no output from remaining pigtail cath) and other (#1 Pigtail catheter removed without difficulty) GI Palp: Yes Soft to palpation, No Guarding due to palpation present (GI) and No Rebound tenderness present Auscultation: normal bowel sounds Extrem: General: no calf tenderness and no edema Objective Data Vital Signs Vital Signs: Vital Signs - 24 hr 10/03/23 12:00 10/03/23 12:00 10/03/23 12:00 Temperature Pulse Rate 91 94 Respiratory Rate 20 Blood Pressure Pulse Oximetry 97 Oxygen Delivery Mechanical Ventilation Fraction of Inspired Oxygen 30 30 10/03/23 12:00 10/03/23 12:00 10/03/23 14:05 Temperature 37.2 C Pulse Rate 100 100 93 Respiratory Rate 21 H Blood Pressure 95/67 L Pulse Oximetry 100 97 Oxygen Delivery Mechanical Ventilation Fraction of Inspired Oxygen 30 10/03/23 14:00 10/03/23 14:00 10/03/23 16:00 Temperature 37.1 C 37.2 C Pulse Rate 93 93 19 L Respiratory Rate 24 H 97 H Blood Pressure 92/51 L 116/71 Pulse Oximetry 97 97 Oxygen Delivery Fraction of Inspired Oxygen 10/03/23 16:49 10/03/23 16:00 10/03/23 16:00 Temperature Pulse Rate 85 94 90 Respiratory Rate 25 H Blood Pressure Pulse Oximetry 97 97 Oxygen Delivery Mechanical Ventilation Mechanical Ventilation Fraction of Inspired Oxygen 30 10/03/23 16:00 10/03/23 18:00 10/03/23 18:00 Temperature 37.2 C Pulse Rate 94 94 Respiratory Rate 22 H Blood Pressure 138/81 Pulse Oximetry 96 Oxygen Delivery Fraction of Inspired Oxygen 10/03/23 18:00 10/03/23 20:37 10/03/23 20:00 Temperature 37.2 C Pulse Rate 94 84 98 Respiratory Rate 20 Blood Pressure 138/81 Pulse Oximetry 100 9
[2023-10-04 12:11] LABS: Glucose Point of Care 129 mg/dl (65-105)
[2023-10-04] MEDS: FAMOTIDINE 20 MG/2 ML VIAL IV PUSH ×2 (12:54→20:25)
[2023-10-04] MEDS: SIMETHICONE ORAL SUSPENSION 20 MG/0.3 ML 30 ML BOTTLE 1.2 ML FEED TUBE ×3 (14:22→20:26)
[2023-10-04 18:13] LABS: Glucose Point of Care 112 mg/dl (65-105)
[2023-10-04] MEDS: QUEtiapine FUMARATE 25 MG TABLET PO (20:25)
[2023-10-05] VITALS (24 sets, daily range): BP systolic 123–166; BP diastolic 73–100; PULSE 67–95; RESP 12–24; TEMP 36.4–37.3; O2SAT 96–100
[2023-10-05 00:03] LABS: Glucose Point of Care 99 mg/dl (65-105)
[2023-10-05 05:10] LABS: Hematocrit 33.6 % (42.0-52.0); Hemoglobin 9.8 g/dL (14.0-18.0); Mean Corpuscular HGB Conc 29.2 g/dl (32-36); Mean Corpuscular Hemoglobin 29.3 pg (26-34); Mean Corpuscular Volume 100.6 fl (80-100); Mean Platelet Volume 10.5 fl (7.4-10.4); Platelet Count Result 254 k/mm3 (150-375); Red Blood Count 3.34 M/mm3 (4.6-6.20); Red Cell Distribution Width 17.9 % (11.5-14.5); White Blood Count 7.7 K/mm3 (4.5-10.0)
[2023-10-05 05:19] LABS: Anion Gap 8 mmol/L (8-16); Blood Urea Nitrogen 44 mg/dL (9-20); Calcium 8.6 mg/dL (8.4-10.2); Carbon Dioxide 24 mmol/L (22-30); Chloride 110 mmol/L (98-107); Estimated CRCL calculation 51 ml/min; Estimated Glomerular Filt Rate 53; Glucose 95 mg/dL (65-110); Potassium 4.1 mmol/L (3.4-5.0); Sodium 142 mmol/L (137-145)
[2023-10-05] MEDS: CENTRAL LINE FLUSH 10 ML IV PUSH ×3 (05:43→20:21)
[2023-10-05] MEDS: LEVOTHYROXINE SODIUM 100 MCG TABLET FEED TUBE (05:43)
--- NOTE | 2023-10-05 07:21 | WPDINTPN ---
Progress Note: A&P Assessment and Plan (1) Acute respiratory failure: Qualifiers: Respiratory failure complication: hypoxia and hypercapnia Qualified Code(s): J96.01 - Acute respiratory failure with hypoxia; J96.02 - Acute respiratory failure with hypercapnia Code(s): J96.00 - Acute respiratory failure, unspecified whether with hypoxia or hypercapnia Status: Acute Assessment and Plan: Acute hypoxic and hypercarbic respiratory failure. Failed multiple days off weaning trials -08/30: Tracheostomy placed 09/09 patient appears to have developed a leak in his tracheostomy cuff. NEW TRACHEOSTOMY was inserted by ENT on 09/09 09/10: Tolerated pressure support ventilation 14/8 all day, was placed on CMV mode overnight 09/11: Placed on pressure support ventilation 14/8 and tolerating for now will switch to CMV mode overnight 09/14: Patient did not tolerate pressure support ventilation as he was breathing only 8-9 times a minute, was placed on ASV mode and tolerated all day long. Placed on CMV overnight 09/15 patient tolerated pressure support ventilation 10/5 all day, was placed on CMV over 09/16: Total PSV 8/5 all day and through the night -will continue PSV 8/5 today too, patient gets tired, tachypneic, tachycardic will put him back on CMV mode 09/18: Patient was placed on CMV mode overnight after he got tired and was tachypneic on pressure support ventilation 8/5. Will give a break today -09/20: Did not tolerate pressure support ventilation or ASV -09/21 and 09/22: Tolerated pressure support ventilation 10/5 all day long, was placed on CMV mode overnight -09/23: Patient has been tolerating pressure support ventilation 10/5 and tolerating all day and is placed on CMV of during the night. -09/24: Tolerated PSV 10/5 all day and was placed overnight on CMV -09/[address] patient on PSV 10/5 and try to see if he can tolerate 8/5. PEG tube placement today, 09/25/202209/[address] patient PSV 10/5 and tolerated for few hours 09/28 tolerated PSV 10/5 for 10 hours yesterday 09/29 Pt tolerated PSV for few hours yesterday and was switched back to CMV 09/30, 10/01, 10/02, 10/03, 10/04 tolerated pressure support ventilation 8/5 for 24 hours, will continue -patient will require LTAC facility for rehab and decannulation of the tracheostomy (2) Sepsis: Qualifiers: Sepsis type: sepsis due to unspecified organism Sepsis acute organ dysfunction status: with acute organ dysfunction Severe sepsis acute organ dysfunction type: acute renal failure Acute renal failure type: unspecified Severe sepsis shock status: without septic shock Qualified Code(s): A41.9 - Sepsis, unspecified organism; R65.20 - Severe sepsis without septic shock; N17.9 - Acute kidney failure, unspecified Code(s): A41.9 - Sepsis, unspecified organism Status: Acute Assessment and Plan: Secondary to peritonitis. Patient also appears to have consolidation of the lower lobes on the CT done which could be aspiration versus atelectasis 08/06: Repeat CT scan of abdomen and pelvis showed gallbladder distention and also fluid collection likely exudative 08/06 patient underwent cholecystostomy tube placement and drainage of peritoneal abscess-cultures have been sent 08/06: IR placed drain in abscess and right and gallbladder which are in place Gallbladder drain culture grew Enterococcus Abscess drain culture grew prevotella Patient continues to have elevated WBC count and low-grade fevers 08/09 CT scan shows multiple peritoneal fluid collections. Although patient has drain in place, may not provide adequate source control due to multiple fluid locations. Recommend re-evaluation for abdominal washout due to persistent elevated WBC low-grade fevers. 08/10 repeat blood cultures sent 08/11 fungal blood culture were sent and patient was started on empiric micafungin 08/[address] of abdomen showed multiple intraperitoneal abscesses and worsening mass in rig
[2023-10-05] MEDS: TOLNAFTATE 1% POWDER 45 GM BTL 1 APPLIC TOPICAL ×2 (09:24→20:21)
[2023-10-05] MEDS: FAMOTIDINE 20 MG/2 ML VIAL IV PUSH ×2 (09:24→20:20)
[2023-10-05] MEDS: COLLAGENASE OINT 30 GM TUBE 1 APPLIC TOPICAL (09:24)
[2023-10-05] MEDS: ENOXAPARIN 40 MG/0.4 ML SYRINGE SUB-Q (09:24)
[2023-10-05] MEDS: ASPIRIN 325 MG TABLET FEED TUBE (09:24)
[2023-10-05] MEDS: SIMETHICONE ORAL SUSPENSION 20 MG/0.3 ML 30 ML BOTTLE 1.2 ML FEED TUBE ×4 (09:26→20:21)
--- NOTE | 2023-10-05 09:37 | PCPTNOTE ---
10/05/23 MW PT - Re-eval completed
[2023-10-05] MEDS: EPOETIN ALFA-EPBX 10,000 UNITS/ML VIAL 10000 UNITS SUB-Q (09:38)
[2023-10-05 11:51] LABS: Glucose Point of Care 123 mg/dl (65-105)
[2023-10-05] MEDS: dexmedeTOMIDine 400 MCG/100 ML 400 MCG/100 ML BAG 5.7 MCG IV CONT (17:48)
--- NOTE | 2023-10-05 18:11 | PC.NURSE ---
At 1702, this RN was called into this patients room by olive grader while assessing another patient. This RN went to check on this patient. Upon entering the room, it was noted that the patient was confused and agitated. Family appeared concerned. Another floor RN was already at bedside and unable to step away. It was observed the patient had a hold of this nurses arm and refused to let go, this RN's lower forearm and hand were turning blue. This RN stepped in at the bedside to try to de-escalate patient. Family stated that patient was picking and trying to pull out Weathers catheter and became agitated when family tried to get him to stop, family then stepped out to grab the first nurse they seen who went into the room and attempted to remove Weathers catheter from patients hand, patient grabbed that nurses arm and continued to squeeze tighter refusing to let go. Patient became increasingly agitated and aggressive and began to get aggressive with family and yelling at them to call the document imaging specialist . This RN was able to finally release other RN's arm from patients junior accounting clerk safely. RN's arm and patient both assessed. Patient is confused at the moment and when asked orientation questions it was noted that patient was disoriented to person, place, time and situation, patient was also unfamiliar with his family members present at the bedside (which included patients , his daughter, and his granddaughter). Patient was also suspicious of everyone in the room and everything going on. RN continued to wait with patient until patient had completely calmed down, RN used verbal de-escalating techniques. Once patient calm, RN stepped out of patient room and called the ICU provider DR. Whitfield. Orders to start Precedex gtt obtained and placed. RN to start Precedex gtt and continue to monitor patients mental status, behaviors and vital signs.
[2023-10-05 18:30] LABS: Glucose Point of Care 129 mg/dl (65-105)
[2023-10-05] MEDS: QUEtiapine FUMARATE 25 MG TABLET PO (20:20)
[2023-10-06] VITALS (24 sets, daily range): BP systolic 103–159; BP diastolic 62–95; PULSE 50–114; RESP 12–22; TEMP 36.2–37.5; O2SAT 96–100
[2023-10-06 04:53] LABS: Glucose Point of Care 112 mg/dl (65-105)
[2023-10-06] MEDS: CENTRAL LINE FLUSH 10 ML IV PUSH ×3 (05:11→20:16)
[2023-10-06 05:15] LABS: Hematocrit 33.5 % (42.0-52.0); Hemoglobin 9.9 g/dL (14.0-18.0); Mean Corpuscular HGB Conc 29.6 g/dl (32-36); Mean Corpuscular Hemoglobin 29.8 pg (26-34); Mean Corpuscular Volume 100.9 fl (80-100); Mean Platelet Volume 10.9 fl (7.4-10.4); Platelet Count Result 240 k/mm3 (150-375); Red Blood Count 3.32 M/mm3 (4.6-6.20); Red Cell Distribution Width 17.8 % (11.5-14.5); White Blood Count 6.6 K/mm3 (4.5-10.0)
[2023-10-06] MEDS: LEVOTHYROXINE SODIUM 100 MCG TABLET FEED TUBE (05:22)
[2023-10-06 05:25] LABS: Anion Gap 7 mmol/L (8-16); Blood Urea Nitrogen 40 mg/dL (9-20); Calcium 8.6 mg/dL (8.4-10.2); Carbon Dioxide 28 mmol/L (22-30); Chloride 108 mmol/L (98-107); Estimated CRCL calculation 54 ml/min; Estimated Glomerular Filt Rate 58; Glucose 106 mg/dL (65-110); Potassium 3.9 mmol/L (3.4-5.0); Sodium 143 mmol/L (137-145)
--- NOTE | 2023-10-06 08:02 | P.PNINT_ITS ---
Progress Note: A&P Assessment and Plan (1) Acute respiratory failure: Qualifiers: Respiratory failure complication: hypoxia and hypercapnia Qualified Code(s): J96.01 - Acute respiratory failure with hypoxia; J96.02 - Acute respiratory failure with hypercapnia Code(s): J96.00 - Acute respiratory failure, unspecified whether with hypoxia or hypercapnia Status: Acute Assessment and Plan: Acute hypoxic and hypercarbic respiratory failure. Failed multiple days off weaning trials -08/30: Tracheostomy placed 09/09 patient appears to have developed a leak in his tracheostomy cuff. NEW TRACHEOSTOMY was inserted by ENT on 09/09 09/10: Tolerated pressure support ventilation 14/8 all day, was placed on CMV mode overnight 09/11: Placed on pressure support ventilation 14/8 and tolerating for now will switch to CMV mode overnight 09/14: Patient did not tolerate pressure support ventilation as he was breathing only 8-9 times a minute, was placed on ASV mode and tolerated all day long. Placed on CMV overnight 09/15 patient tolerated pressure support ventilation 10/5 all day, was placed on CMV over 09/16: Total PSV 8/5 all day and through the night -will continue PSV 8/5 today too, patient gets tired, tachypneic, tachycardic will put him back on CMV mode 09/18: Patient was placed on CMV mode overnight after he got tired and was tachypneic on pressure support ventilation 8/5. Will give a break today -09/20: Did not tolerate pressure support ventilation or ASV -09/21 and 09/22: Tolerated pressure support ventilation 10/5 all day long, was placed on CMV mode overnight -09/23: Patient has been tolerating pressure support ventilation 10/5 and tolerating all day and is placed on CMV of during the night. -09/24: Tolerated PSV 10/5 all day and was placed overnight on CMV -09/[address] patient on PSV 10/5 and try to see if he can tolerate 8/5. PEG tube placement today, 09/25/202209/[address] patient PSV 10/5 and tolerated for few hours 09/28 tolerated PSV 10/5 for 10 hours yesterday 09/29 Pt tolerated PSV for few hours yesterday and was switched back to CMV 09/30, 10/01, 10/02, 10/03, 10/04, 10/05 tolerated pressure support ventilation 8/5 for 24 hours, will continue -patient will require LTAC facility for rehab and decannulation of the tracheostomy (2) Sepsis: Qualifiers: Sepsis type: sepsis due to unspecified organism Sepsis acute organ dysfunction status: with acute organ dysfunction Severe sepsis acute organ dysfunction type: acute renal failure Acute renal failure type: unspecified Severe sepsis shock status: without septic shock Qualified Code(s): A41.9 - Sepsis, unspecified organism; R65.20 - Severe sepsis without septic shock; N17.9 - Acute kidney failure, unspecified Code(s): A41.9 - Sepsis, unspecified organism Status: Acute Assessment and Plan: Secondary to peritonitis. Patient also appears to have consolidation of the lower lobes on the CT done which could be aspiration versus atelectasis 08/06: Repeat CT scan of abdomen and pelvis showed gallbladder distention and also fluid collection likely exudative 08/06 patient underwent cholecystostomy tube placement and drainage of peritoneal abscess-cultures have been sent 08/06: IR placed drain in abscess and right and gallbladder which are in place Gallbladder drain culture grew Enterococcus Abscess drain culture grew prevotella Patient continues to have elevated WBC count and low-grade fevers 08/09 CT scan shows multiple peritoneal fluid collections. Although patient has drain in place, may not provide adequate source control due to multiple fluid locations. Recommend
[2023-10-06] MEDS: SCOPOLAMINE 1 MG PATCH 1 PATCH TRANSDERM (08:55)
[2023-10-06] MEDS: ENOXAPARIN 40 MG/0.4 ML SYRINGE SUB-Q (08:55)
[2023-10-06] MEDS: ASPIRIN 325 MG TABLET FEED TUBE (08:55)
[2023-10-06] MEDS: FAMOTIDINE 20 MG/2 ML VIAL IV PUSH ×2 (08:56→20:16)
[2023-10-06] MEDS: COLLAGENASE OINT 30 GM TUBE 1 APPLIC TOPICAL (08:56)
[2023-10-06] MEDS: HYDROCORTISONE 1% 30 GM OINTMENT 1 APPLIC TOPICAL ×2 (08:56→20:16)
[2023-10-06] MEDS: MINERAL OIL/WHITE PETROLATUM OINTMENT 1 APPLIC EACH EYE ×2 (08:56→20:16)
[2023-10-06] MEDS: TOLNAFTATE 1% POWDER 45 GM BTL 1 APPLIC TOPICAL ×2 (08:57→20:16)
[2023-10-06] MEDS: SIMETHICONE ORAL SUSPENSION 20 MG/0.3 ML 30 ML BOTTLE 1.2 ML FEED TUBE ×4 (08:57→20:16)
[2023-10-06 10:21] LABS: Alveolar/Arterial O2 Gradient 77.3 mmHg; Base Excess ABG 0.9 mEq/l (+/-2.0); Fractional Inspired Oxygen 30 %; HCO3 ABG 23.5 mEq/l (22.0-26.0); Oxygen Content ABG 16.2 %vol (16.0-22.0); Oxygen Saturation ABG 98.1 % (95.0-100.0); PO2 ABG 100.2 mmHg (80.0-100.0); PO2 FiO2 Ratio Arterial Blood 3.34 %; Total Hemoglobin 11.8 g/dL (12.0-18.0); pH ABG 7.497 (7.350-7.450)
[2023-10-06 10:24] LABS: Modified Allen's Test Pass; Site Drawn RIGHT RADIAL
[2023-10-06 10:25] LABS: Device VENTILATOR
[2023-10-06 10:26] LABS: Arterial Blood Gas Ventilator rate 15 /MIN
[2023-10-06 10:27] LABS: Arterial Blood Gas PEEP 5 cmH2O; Arterial Blood Gas Pressure Support 8 cmH2O; Arterial Blood Gas Tidal Volume 595 ml; Arterial Blood Gas Vent Mode PRESSURE SUPPORT
[2023-10-06 11:53] LABS: Glucose Point of Care 103 mg/dl (65-105)
--- NOTE | 2023-10-06 14:39 | PM.PNGS ---
Progress Note: A&P Assessment and Plan (1) S/P partial colectomy: Code(s): Z90.49 - Acquired absence of other specified parts of digestive tract Status: Acute Assessment and Plan: Incisions healing well and ostomy functioning. 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 Continue (4) Abdominal abscess: Status: Acute Assessment and Plan: Resolved by CT scan and pigtail catheter removed. There are no residual intra-abdominal catheters other than his gastrostomy tube. (5) Respiratory failure: Qualifiers: Chronicity: chronic Respiratory failure complication: hypercapnia Qualified Code(s): J96.12 - Chronic respiratory failure with hypercapnia Code(s): J96.90 - Respiratory failure, unspecified, unspecified whether with hypoxia or hypercapnia Status: Chronic Assessment and Plan: Remains on pressure support only (6) Protein-calorie malnutrition, severe: Code(s): E43 - Unspecified severe protein-calorie malnutrition Status: Acute Assessment and Plan: Receiving tube feeds at goal rate (7) History of tracheostomy: Code(s): Z98.890 - Other specified postprocedural states Status: Chronic Assessment and Plan: Working well. Plan is to go to [facility] next week when bed available. Subjective Subjective Date/Time Seen: 10/06/23 14:39 Interval history: Patient a little agitated yesterday and was placed on Precedex overnight. Doing better this AM. Main complaints are with the tracheostomy tube. Ostomy functioning and tolerating tube feeds. Exam Const: General: comfortable, no acute distress and awake Orientation/consciousness: No confusion GI: Inspection: non-distended and incision (Both incisions dry and healing well, no output from remaining pigtail cath) GI Palp: Yes Soft to palpation, No Guarding due to palpation present (GI) and No Rebound tenderness present Auscultation: normal bowel sounds Other: Ostomy pink and functioning Extrem: General: no calf tenderness and no edema Objective Data Vital Signs Vital Signs: Vital Signs - 24 hr 10/05/23 16:12 10/05/23 16:00 10/05/23 16:00 Temperature 37.2 C Pulse Rate 81 89 Respiratory Rate 21 H Blood Pressure 140/92 H Pulse Oximetry 97 98 Oxygen Delivery Mechanical Ventilation Fraction of Inspired Oxygen 30 30 10/05/23 17:48 10/05/23 18:00 10/05/23 16:00 Temperature 36.9 C Pulse Rate 87 86 90 Respiratory Rate 24 H 17 Blood Pressure 166/100 H Pulse Oximetry 99 Oxygen Delivery Fraction of Inspired Oxygen 10/05/23 16:00 10/05/23 18:00 10/05/23 20:00 Temperature 36.8 C Pulse Rate 86 84 Respiratory Rate 18 Blood Pressure 130/81 Pulse Oximetry 98 99 Oxygen Delivery Mechanical Ventilation Fraction of Inspired Oxygen 30 10/05/23 20:00 10/05/23 20:00 10/05/23 20:00 Temperature Pulse Rate 80 Respiratory Rate Blood Pressure Pulse Oximetry 99 Oxygen Delivery Mechanical Ventilation Fraction of Inspired Oxygen 30 30 10/05/23 21:24 10/05/23 20:00 10/05/23 22:00 Temperature 36.4 C Pulse Rate 75 84 76 Respiratory Rate 20 18 18 Blood Pressure 123/73 Pulse Oximetry 98 Oxygen Delivery Fraction of Inspired Oxygen 10/05/23 22:00 10/05/23 22:00 10/05/23 22:18 Temperature 36.4 C Pulse Rate 71 71 79 Respiratory Rate 17 20 Blood Pressure 123/73 Pulse Oximetry 97 Oxygen Delivery Fraction of Inspired Oxygen 10/06/23 00:00 10/06/23 00:00 10/06/23 00:00 Temperature Pulse Rate 65 Respiratory Rate Blood Pressure Pulse Oximetry 96 Oxygen Delivery Mechanical Ventilation
[2023-10-06 17:14] LABS: Glucose Point of Care 103 mg/dl (65-105)
[2023-10-06] MEDS: ACETAMINOPHEN ELIXIR 325 MG/10.15 ML UDC 650 MG FEED TUBE (20:15)
[2023-10-06] MEDS: QUEtiapine FUMARATE 25 MG TABLET PO (20:16)
[2023-10-06] MEDS: dexmedeTOMIDine 400 MCG/100 ML 400 MCG/100 ML BAG 11.42 MCG IV CONT (21:58)
--- NOTE | 2023-10-06 22:06 | PC.NURSE ---
Dr. Whitfield notified for patient agitation, patient pulling off blood pressure cuff, as well as colostomy bag and tugging at peg tube. Okay to start precedex drip.
[2023-10-07] VITALS (33 sets, daily range): BP systolic 90–159; BP diastolic 65–96; PULSE 59–113; RESP 14–30; TEMP 36.6–37.4; O2SAT 94–100
[2023-10-07 00:20] LABS: Glucose Point of Care 121 mg/dl (65-105)
[2023-10-07 04:27] LABS: Alanine Aminotransferase 16 U/L (6-50); Albumin Level 3.4 g/dL (3.5-5.1); Alkaline Phosphatase 85 U/L (38-126); Anion Gap 6 mmol/L (8-16); Aspartate Amino Transferase 21 U/L (17-59); Bilirubin,Total 0.6 mg/dL (0.2-1.3); Blood Urea Nitrogen 37 mg/dL (9-20); Calcium 8.8 mg/dL (8.4-10.2); Carbon Dioxide 29 mmol/L (22-30); Chloride 108 mmol/L (98-107); Estimated CRCL calculation 54 ml/min; Estimated Glomerular Filt Rate 58; Glucose 107 mg/dL (65-110); Magnesium 1.8 mg/dL (1.6-2.3); Potassium 3.8 mmol/L (3.4-5.0); Sodium 143 mmol/L (137-145)
[2023-10-07 04:30] LABS: Hematocrit 34.5 % (42.0-52.0); Hemoglobin 10.3 g/dL (14.0-18.0); Mean Corpuscular HGB Conc 29.9 g/dl (32-36); Mean Corpuscular Hemoglobin 29.9 pg (26-34); Mean Corpuscular Volume 100.3 fl (80-100); Mean Platelet Volume 10.9 fl (7.4-10.4); Platelet Count Result 237 k/mm3 (150-375); Red Blood Count 3.44 M/mm3 (4.6-6.20); White Blood Count 7.4 K/mm3 (4.5-10.0)
[2023-10-07 04:34] LABS: Transferrin 149 mg/dL (206-381)
[2023-10-07 04:35] LABS: INR 1.1; Prothrombin Time 15.1 Seconds (11.1-14.7)
[2023-10-07 04:36] LABS: Partial Thromboplastin Time 27.1 SECONDS (22.3-36.8)
[2023-10-07] MEDS: CENTRAL LINE FLUSH 10 ML IV PUSH ×3 (05:17→20:36)
[2023-10-07] MEDS: LEVOTHYROXINE SODIUM 100 MCG TABLET FEED TUBE (05:17)
--- NOTE | 2023-10-07 07:37 | WPDINTPN ---
Progress Note: A&P Assessment and Plan (1) Acute respiratory failure: Qualifiers: Respiratory failure complication: hypoxia and hypercapnia Qualified Code(s): J96.01 - Acute respiratory failure with hypoxia; J96.02 - Acute respiratory failure with hypercapnia Code(s): J96.00 - Acute respiratory failure, unspecified whether with hypoxia or hypercapnia Status: Acute Assessment and Plan: Acute hypoxic and hypercarbic respiratory failure. Failed multiple days off weaning trials -08/30: Tracheostomy placed 09/09 patient appears to have developed a leak in his tracheostomy cuff. NEW TRACHEOSTOMY was inserted by ENT on 09/09 09/10: Tolerated pressure support ventilation 14/8 all day, was placed on CMV mode overnight 09/11: Placed on pressure support ventilation 14/8 and tolerating for now will switch to CMV mode overnight 09/14: Patient did not tolerate pressure support ventilation as he was breathing only 8-9 times a minute, was placed on ASV mode and tolerated all day long. Placed on CMV overnight 09/15 patient tolerated pressure support ventilation 10/5 all day, was placed on CMV over 09/16: Total PSV 8/5 all day and through the night -will continue PSV 8/5 today too, patient gets tired, tachypneic, tachycardic will put him back on CMV mode 09/18: Patient was placed on CMV mode overnight after he got tired and was tachypneic on pressure support ventilation 8/5. Will give a break today -09/20: Did not tolerate pressure support ventilation or ASV -09/21 and 09/22: Tolerated pressure support ventilation 10/5 all day long, was placed on CMV mode overnight -09/23: Patient has been tolerating pressure support ventilation 10/5 and tolerating all day and is placed on CMV of during the night. -09/24: Tolerated PSV 10/5 all day and was placed overnight on CMV -09/[address] patient on PSV 10/5 and try to see if he can tolerate 8/5. PEG tube placement today, 09/25/202209/[address] patient PSV 10/5 and tolerated for few hours 09/28 tolerated PSV 10/5 for 10 hours yesterday 09/29 Pt tolerated PSV for few hours yesterday and was switched back to CMV 09/30, 10/01, 10/02, 10/03, 10/04, 10/05, 10/06 tolerated pressure support ventilation 8/ for 24 hours, will continue -patient will require LTAC facility for rehab and decannulation of the tracheostomy -mild wheezing on the right side, will add bronchodilators (2) Sepsis: Qualifiers: Sepsis type: sepsis due to unspecified organism Sepsis acute organ dysfunction status: with acute organ dysfunction Severe sepsis acute organ dysfunction type: acute renal failure Acute renal failure type: unspecified Severe sepsis shock status: without septic shock Qualified Code(s): A41.9 - Sepsis, unspecified organism; R65.20 - Severe sepsis without septic shock; N17.9 - Acute kidney failure, unspecified Code(s): A41.9 - Sepsis, unspecified organism Status: Acute Assessment and Plan: Secondary to peritonitis. Patient also appears to have consolidation of the lower lobes on the CT done which could be aspiration versus atelectasis 08/06: Repeat CT scan of abdomen and pelvis showed gallbladder distention and also fluid collection likely exudative 08/06 patient underwent cholecystostomy tube placement and drainage of peritoneal abscess-cultures have been sent 08/06: IR placed drain in abscess and right and gallbladder which are in place Gallbladder drain culture grew Enterococcus Abscess drain culture grew prevotella Patient continues to have elevated WBC count and low-grade fevers 08/09 CT scan shows multiple peritoneal fluid collections. Although patient has drain in place, may not provide adequate source control due to multiple fluid locations. Recommend re-evaluation for abdominal washout due to persistent elevated WBC low-grade fevers. 08/10 repeat blood cultures sent 08/11 fungal blood culture were sent and patient was started on empiric micafungin 08/[address] of a
[2023-10-07] MEDS: ALBUTEROL SULFATE NEB 2.5 MG/3 ML INH INHALATION (08:38)
[2023-10-07] MEDS: FAMOTIDINE 20 MG/2 ML VIAL IV PUSH ×2 (08:38→20:20)
[2023-10-07] MEDS: IPRATROPIUM BR 0.02% INH SOLN 0.5 MG/2.5 ML VIAL INHALATION (08:38)
[2023-10-07] MEDS: POTASSIUM CHLORIDE 20 MEQ PACKET (FOR LIQUID) 40 MEQ FEED TUBE (08:39)
[2023-10-07] MEDS: ENOXAPARIN 40 MG/0.4 ML SYRINGE SUB-Q (08:39)
[2023-10-07] MEDS: ASPIRIN 325 MG TABLET FEED TUBE (08:39)
[2023-10-07] MEDS: MAGNESIUM SULF 2 GM/WATER 50ML 2 GM/50 ML BAG IVPB (08:39)
[2023-10-07] MEDS: SIMETHICONE ORAL SUSPENSION 20 MG/0.3 ML 30 ML BOTTLE 1.2 ML FEED TUBE ×4 (08:39→20:32)
[2023-10-07] MEDS: COLLAGENASE OINT 30 GM TUBE 1 APPLIC TOPICAL (08:39)
[2023-10-07] MEDS: MINERAL OIL/WHITE PETROLATUM OINTMENT 1 APPLIC EACH EYE ×2 (08:40→20:20)
[2023-10-07] MEDS: HYDROCORTISONE 1% 30 GM OINTMENT 1 APPLIC TOPICAL ×2 (08:40→20:20)
[2023-10-07] MEDS: TOLNAFTATE 1% POWDER 45 GM BTL 1 APPLIC TOPICAL ×2 (08:40→20:37)
--- NOTE | 2023-10-07 10:44 | PCFNICU ---
ICU Rounding Note: Pt current nutrition is Tube feeding: Vital AF 1.2 @ goal rate, 70 ml/h. 100 ml flush q 4 hours. Tolerating Nutrition recommendation: Continue with current tube feeding orders with no changes. Last recorded weight is 115.2 kg. Bowel Motility: +1 BM 09/27/14 Labs Reviewed: Hgb 10.3, Hct 34.5, Alb 3.4, GFR 58, BUN 37, Glu 121 Meds Noted: Zosyn, lovenox, bumex, protonix Skin: Blister to abdomen. No drains. No pressure injurues Additional Notes: tube feeding meeting estimated 93% EER. Tolerating with residuals at 375 ml. Pt may discharge to another facility soon. Following daily in ICU rounds. Will montior weight, labs, skin, meds, TPN every Saturday and Saturday. .
[2023-10-07 12:14] LABS: Glucose Point of Care 106 mg/dl (65-105)
--- NOTE | 2023-10-07 12:32 | P.TS_ITS ---
Transfer Discharge Sum: Prov Provider Date of admission: 08/03/23 13:16 Primary care physician: Demond Stark MD Admitting clinician: Jaxon Armijo MD Attending physician on admission: Jaxon Armijo Consults: 08/04/23 Consult to Physician Routine Comment: Spoke to exchange 08.04.23 @ [phone] Consulting Provider: Koki Jimenez upper tier/MD group to consult: Cardiology Reason for consultation: Afib with RVR Has provider been notified: Yes 08/05/23 Consult to Physician Routine Comment: spoke with Dr. Stein @[phone](,[place]) Consulting Provider: Esvin Stein upper tier/MD group to consult: Nephrology Reason for consultation: acute renal failure Has provider been notified: Yes 08/06/23 13:36 Consult to Physician Routine Comment: Consulting Provider: Phuc Peacock Reason for consultation: hypovolemia Has provider been notified: Yes 08/08/23 Consult to Physician Routine Comment: spoke with Dr. Sargent @[phone](,) Consulting Provider: Monika Sargent upper tier/MD group to consult: Hospitalist service Reason for consultation: Medical management, sepsis, chronic medical problems Has provider been notified: Yes 08/08/23 08:18 Consult to Dietitian Routine Reason for Consult:: TPN 08/16/23 14:31 Consult to Dietitian Routine Reason for Consult:: TPN 08/27/23 13:50 Consult to Physician Routine Comment: left voicemail with Dr. Mendez @[phone](,) Consulting Provider: Gus Mendez upper tier/MD group to consult: ENT Reason for consultation: Tracheostomy Has provider been notified: Yes 08/28/23 Wound/ET Consult Routine Reason for Consult:: rectal wound 09/03/23 Wound/ET Consult Routine Reason for Consult:: Please leana patient for descending colostomy site prior to surgery tomorrow at 1:00. Thanks. 09/08/23 Consult to Physician Routine Comment: Consulting Provider: Esvin Stein Reason for consultation: latasha Has provider been notified: Yes 09/11/23 Wound/ET Consult Routine Reason for Consult:: Please irrigate colostomy today. 09/11/23 11:49 Consult to Physician Routine Comment: Spoke with office @ [phone] (,) Consulting Provider: Baron Shelton upper tier/MD group to consult: UROLOGY Reason for consultation: SCROTAL ABSCESS Has provider been notified: Yes 09/21/23 Wound/ET Consult Routine Reason for Consult:: Pressure wound under tracheostomy 09/24/23 11:54 Consult to Physician Routine Comment: called Dr. Muro to inform him of consult Consulting Provider: Hero Muro upper tier/MD group to consult: Gastroenterology Reason for consultation: PEG tube placement Has provider been notified: Yes Attending physician on discharge: Jaxon Armijo Discharging clinician: Jaxon Armijo Anticipated date of transfer: 10/07/23 Receiving physician/facility: [facility] DS: Admitting Diagnosis Discharge Date 10/07/23 Admitting Diagnosis * Right inguinal hernia * Right scrotal mass-huge inguinal hernia with most of small bowel in the scrotum * Paroxysmal atrial fibrillation-on Xarelto chronically * History radical prostatectomy for prostate cancer 2004 * History of coronary artery bypass grafting * Essential hypertension DS: Discharge Diagnosis Discharge Diagnosis (1) Right
--- NOTE | 2023-10-07 12:32 | PM.TDS ---
Transfer Discharge Sum: Prov Provider Date of admission: 08/03/23 13:16 Primary care physician: Demond Stark MD Admitting clinician: Jaxon Armijo MD Attending physician on admission: Jaxon Armijo Consults: 08/04/23 Consult to Physician Routine Comment: Spoke to exchange 08.04.23 @ [phone] Consulting Provider: Koki Jimenez call center recruiter/MD group to consult: Cardiology Reason for consultation: Afib with RVR Has provider been notified: Yes 08/05/23 Consult to Physician Routine Comment: spoke with Dr. Stein @[phone](,[place]) Consulting Provider: Esvin Stein call center recruiter/MD group to consult: Nephrology Reason for consultation: acute renal failure Has provider been notified: Yes 08/06/23 13:36 Consult to Physician Routine Comment: Consulting Provider: Phuc Peacock Reason for consultation: hypovolemia Has provider been notified: Yes 08/08/23 Consult to Physician Routine Comment: spoke with Dr. Sargent @[phone](,) Consulting Provider: Monika Sargent call center recruiter/MD group to consult: Hospitalist service Reason for consultation: Medical management, sepsis, chronic medical problems Has provider been notified: Yes 08/08/23 08:18 Consult to Dietitian Routine Reason for Consult:: TPN 08/16/23 14:31 Consult to Dietitian Routine Reason for Consult:: TPN 08/27/23 13:50 Consult to Physician Routine Comment: left voicemail with Dr. Mendez @[phone](,) Consulting Provider: Gus Mendez call center recruiter/MD group to consult: ENT Reason for consultation: Tracheostomy Has provider been notified: Yes 08/28/23 Wound/ET Consult Routine Reason for Consult:: rectal wound 09/03/23 Wound/ET Consult Routine Reason for Consult:: Please leana patient for descending colostomy site prior to surgery tomorrow at 1:00. Thanks. 09/08/23 Consult to Physician Routine Comment: Consulting Provider: Esvin Stein Reason for consultation: latasha Has provider been notified: Yes 09/11/23 Wound/ET Consult Routine Reason for Consult:: Please irrigate colostomy today. 09/11/23 11:49 Consult to Physician Routine Comment: Spoke with office @ [phone] (,) Consulting Provider: Baron Shelton call center recruiter/MD group to consult: UROLOGY Reason for consultation: SCROTAL ABSCESS Has provider been notified: Yes 09/21/23 Wound/ET Consult Routine Reason for Consult:: Pressure wound under tracheostomy 09/24/23 11:54 Consult to Physician Routine Comment: called Dr. Muro to inform him of consult Consulting Provider: Hero Muro call center recruiter/MD group to consult: Gastroenterology Reason for consultation: PEG tube placement Has provider been notified: Yes Attending physician on discharge: Jaxon Armijo Discharging clinician: Jaxon Armijo Anticipated date of transfer: 10/07/23 Receiving physician/facility: [facility] DS: Admitting Diagnosis Discharge Date 10/07/23 Admitting Diagnosis Right inguinal hernia Right scrotal mass-huge inguinal hernia with most of small bowel in the scrotum Paroxysmal atrial fibrillation-on Xarelto chronically History radical prostatectomy for prostate cancer 2004 History of coronary artery bypass grafting Essential hypertension DS: Discharge Diagnosis Discharge Diagnosis (1) Right inguinal hernia: Code(s): K40.90 - Unilateral inguinal hernia, without obstruction or gangrene, not specified as recurrent Status: Chronic (2) Scrotal mass: Code(s): N50.89 - Other specified disorders of the male genital organs Status: Chronic (3) History of prostate cancer: Code(s): Z85.46 - Personal history of malignant neoplasm of prostate Status: Chronic (4) Hx of CABG: Code(s): Z95.1 - Presence of aortocoronary bypass graft Status: Chronic (5) Paroxysmal atrial fibrillation: Code(s): I48.0 - Paroxysmal atrial fibrillation Status: Chronic (6)
[2023-10-07] MEDS: IPRATROPIUM 0.5 MG/ALBUTEROL SULFATE 2.5 MG AMPUL.NEB 3 ML INHALATION ×2 (14:40→21:05)
[2023-10-07 17:48] LABS: Glucose Point of Care 114 mg/dl (65-105)
[2023-10-07] MEDS: QUEtiapine FUMARATE 25 MG TABLET PO (20:20)
[2023-10-07 23:29] LABS: Glucose Point of Care 113 mg/dl (65-105)
[2023-10-07] MEDS: diphenhydrAMINE HCl INJ 50 MG/ML VIAL 25 MG IV PUSH (23:32)
[2023-10-08] VITALS (24 sets, daily range): BP systolic 110–152; BP diastolic 67–91; PULSE 80–109; RESP 16–35; TEMP 36.5–37.6; O2SAT 95–98
[2023-10-08] MEDS: LORazepam INJ (*CRX) 2 MG/ML VIAL 1 MG IV PUSH (01:34)
[2023-10-08] MEDS: IPRATROPIUM 0.5 MG/ALBUTEROL SULFATE 2.5 MG AMPUL.NEB 3 ML INHALATION ×4 (02:30→20:09)
[2023-10-08] MEDS: LEVOTHYROXINE SODIUM 100 MCG TABLET FEED TUBE (05:49)
[2023-10-08] MEDS: CENTRAL LINE FLUSH 10 ML IV PUSH (05:50)
[2023-10-08 06:04] LABS: Glucose Point of Care 118 mg/dl (65-105)
[2023-10-08] MEDS: ASPIRIN 325 MG TABLET FEED TUBE (07:45)
[2023-10-08] MEDS: HYDROCORTISONE 1% 30 GM OINTMENT 1 APPLIC TOPICAL ×2 (07:46→16:28)
[2023-10-08] MEDS: FAMOTIDINE 20 MG/2 ML VIAL IV PUSH (07:46)
[2023-10-08] MEDS: ENOXAPARIN 40 MG/0.4 ML SYRINGE SUB-Q (07:46)
[2023-10-08] MEDS: COLLAGENASE OINT 30 GM TUBE 1 APPLIC TOPICAL (07:47)
[2023-10-08] MEDS: SIMETHICONE ORAL SUSPENSION 20 MG/0.3 ML 30 ML BOTTLE 1.2 ML FEED TUBE ×4 (07:49→20:26)
[2023-10-08] MEDS: TOLNAFTATE 1% POWDER 45 GM BTL 1 APPLIC TOPICAL ×2 (07:49→20:25)
[2023-10-08] MEDS: MINERAL OIL/WHITE PETROLATUM OINTMENT 1 APPLIC EACH EYE ×2 (07:49→20:25)
[2023-10-08] MEDS: QUEtiapine FUMARATE 25 MG TABLET FEED TUBE (08:21)
--- NOTE | 2023-10-08 10:27 | PCNFU ---
Nutrition Follow-Up Complete: Swallowing Difficulties as related to mentation/risk of aspiration as evidenced by NPO. goal: Meet estimated nutritional needs Patient is meeting current goal. Pt current nutrition is Vital AF 1.2 at 70 ml/hr. Last recorded weight is 115.2 kg, stable Bowel Motility:+BM reported 10/08 Labs Reviewed:no labs to report today. Meds Noted:Lovenox, Synthroid, Seroquel Skin: WNL Additional Notes:Patient current with Trach and PEG. Tube feeding of Vital AF 1.2 at 70 ml/hr. Tube feedings overall are being tolerated per nursing. Flush 30 ml q 4 hours. Plans for LTAC when bed available. Will monitor weight, labs, skin, meds, TPN every Saturday and Saturday.
[2023-10-08 10:58] LABS: Glucose Point of Care 125 mg/dl (65-105)
--- NOTE | 2023-10-08 12:10 | PM.PNGS ---
Progress Note: A&P Assessment and Plan (1) Respiratory failure: Qualifiers: Chronicity: chronic Respiratory failure complication: hypercapnia Qualified Code(s): J96.12 - Chronic respiratory failure with hypercapnia Code(s): J96.90 - Respiratory failure, unspecified, unspecified whether with hypoxia or hypercapnia Status: Chronic Assessment and Plan: Remains on pressure support only. Not able to transfer to [facility] yesterday due to lack of bed availability. Apparently not going to transfer again today. (2) Delirium: Code(s): R41.0 - Disorientation, unspecified Status: Acute Assessment and Plan: Insomnia at night with some reported hallucinations. Given Seroquel today and sleeping deeply. 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 (6) Abdominal abscess: Status: Resolved Assessment and Plan: Drains out no signs of infection. Completed antibiotic therapy. (7) MOISÉS (acute kidney injury): Code(s): N17.9 - Acute kidney failure, unspecified Status: Acute Assessment and Plan: BUN and creatinine are nearly normal. Creatinine clearance 54. Subjective Subjective Date/Time Seen: 10/08/23 12:11 Patient reports: no new complaints, bowel movement, afebrile and other (Patient awake most of the night, sleeping now after receiving Seroquel. Reportedly had some hallucinations.) Review of Systems Review of Systems: ROS unobtainable: Yes unobtainable due to medical condition Exam Const: General: patient obtunded GI: Inspection: non-distended and incision (Dry and healing) GI Palp: Yes Soft to palpation and No Tenderness to palpation present (GI) Auscultation: normal bowel sounds : Penis: Yes normal penis Scrotum: edematous Urinary Catheter: Urinary Catheter: patent and draining Objective Data Vital Signs Vital Signs: Vital Signs - 24 hr 10/07/23 12:15 10/07/23 13:17 10/07/23 14:00 Temperature 37.3 C Pulse Rate 94 87 Respiratory Rate 23 H Blood Pressure 117/69 127/86 Pulse Oximetry 100 98 Oxygen Delivery Mechanical Ventilation Fraction of Inspired Oxygen 30 10/07/23 14:00 10/07/23 14:40 10/07/23 14:43 Temperature Pulse Rate 87 94 95 Respiratory Rate 17 Blood Pressure Pulse Oximetry 99 Oxygen Delivery Mechanical Ventilation Fraction of Inspired Oxygen 25 10/07/23 17:27 10/07/23 16:00 10/07/23 16:00 Temperature 37.3 C Pulse Rate 100 86 Respiratory Rate 25 H Blood Pressure 139/85 Pulse Oximetry 98 97 Oxygen Delivery Mechanical Ventilation Fraction of Inspired Oxygen 25 25 10/07/23 16:00 10/07/23 18:00 10/07/23 16:00 Temperature 37.2 C Pulse Rate 99 91 Respiratory Rate 25 H Blood Pressure 155/94 H Pulse Oximetry 98 97 Oxygen Delivery Mechanical Ventilation Fraction of Inspired Oxygen 25 10/07/23 18:00 10/07/23 20:00 10/07/23 20:00 Temperature 37.3 C Pulse Rate 102 H 86 Respiratory Rate 30 H Blood Pressure 150/96 H Pulse Oximetry 95 98 Oxygen Delivery Mechanical Ventilation Fraction of Inspired Oxygen 25 10/07/23 20:00 10/07/23 20:00 10/07/23 22:00 Temperature Pulse Rate 109 H 100 Respiratory Rate Blood Pressure Pulse Oximetry Oxygen Delivery Fraction of Inspired Oxygen 25 10/08/23 00:00 10/08/23 00:00 10/08/23 00:00 Temperature Pulse Rate 98 Respiratory Rate Blood Pressure Pulse Oximetry 97 Oxygen Delivery Mechanical Ventilation Fraction of Inspired Oxygen 25 25 10/08/23 00:00 10/07/23 21:05 10/07/23 20:
[2023-10-08] MEDS: QUEtiapine FUMARATE 25 MG TABLET 50 MG FEED TUBE (20:25)
[2023-10-08] MEDS: FAMOTIDINE 20 MG TABLET FEED TUBE (20:25)
[2023-10-09] VITALS (21 sets, daily range): BP systolic 84–150; BP diastolic 52–98; PULSE 77–108; RESP 14–22; TEMP 36.8–37.3; O2SAT 95–100
[2023-10-09 00:14] LABS: Glucose Point of Care 118 mg/dl (65-105)
[2023-10-09] MEDS: IPRATROPIUM 0.5 MG/ALBUTEROL SULFATE 2.5 MG AMPUL.NEB 3 ML INHALATION ×3 (01:11→16:18)
[2023-10-09 06:28] LABS: Glucose Point of Care 107 mg/dl (65-105)
[2023-10-09] MEDS: LEVOTHYROXINE SODIUM 100 MCG TABLET FEED TUBE (06:46)
--- NOTE | 2023-10-09 07:46 | WPDINTPN ---
Progress Note: A&P Assessment and Plan (1) Acute respiratory failure: Qualifiers: Respiratory failure complication: hypoxia and hypercapnia Qualified Code(s): J96.01 - Acute respiratory failure with hypoxia; J96.02 - Acute respiratory failure with hypercapnia Code(s): J96.00 - Acute respiratory failure, unspecified whether with hypoxia or hypercapnia Status: Acute Assessment and Plan: Acute hypoxic and hypercarbic respiratory failure. Failed multiple days off weaning trials -08/30: Tracheostomy placed 09/09 patient appears to have developed a leak in his tracheostomy cuff. NEW TRACHEOSTOMY was inserted by ENT on 09/09 09/10: Tolerated pressure support ventilation 14/8 all day, was placed on CMV mode overnight 09/11: Placed on pressure support ventilation 14/8 and tolerating for now will switch to CMV mode overnight 09/14: Patient did not tolerate pressure support ventilation as he was breathing only 8-9 times a minute, was placed on ASV mode and tolerated all day long. Placed on CMV overnight 09/15 patient tolerated pressure support ventilation 10/5 all day, was placed on CMV over 09/16: Total PSV 8/5 all day and through the night -will continue PSV 8/5 today too, patient gets tired, tachypneic, tachycardic will put him back on CMV mode 09/18: Patient was placed on CMV mode overnight after he got tired and was tachypneic on pressure support ventilation 8/5. Will give a break today -09/20: Did not tolerate pressure support ventilation or ASV -09/21 and 09/22: Tolerated pressure support ventilation 10/5 all day long, was placed on CMV mode overnight -09/23: Patient has been tolerating pressure support ventilation 10/5 and tolerating all day and is placed on CMV of during the night. -09/24: Tolerated PSV 10/5 all day and was placed overnight on CMV -09/[address] patient on PSV 10/5 and try to see if he can tolerate 8/5. PEG tube placement today, 09/25/202209/[address] patient PSV 10/5 and tolerated for few hours 09/28 tolerated PSV 10/5 for 10 hours yesterday 09/29 Pt tolerated PSV for few hours yesterday and was switched back to CMV 09/30, 10/01, 10/02, 10/03, 10/04, 10/05, 10/06, 10/08, 10/09 tolerating pressure support ventilation 8/5 for 24 hours, will continue -patient will require LTAC facility for rehab and decannulation of the tracheostomy and is awaiting for bed placement (2) Sepsis: Qualifiers: Acute renal failure type: unspecified Sepsis acute organ dysfunction status: with acute organ dysfunction Sepsis type: sepsis due to unspecified organism Severe sepsis acute organ dysfunction type: acute renal failure Severe sepsis shock status: without septic shock Qualified Code(s): A41.9 - Sepsis, unspecified organism; R65.20 - Severe sepsis without septic shock; N17.9 - Acute kidney failure, unspecified Code(s): A41.9 - Sepsis, unspecified organism Status: Acute Assessment and Plan: Secondary to peritonitis. Patient also appears to have consolidation of the lower lobes on the CT done which could be aspiration versus atelectasis 08/06: Repeat CT scan of abdomen and pelvis showed gallbladder distention and also fluid collection likely exudative 08/06 patient underwent cholecystostomy tube placement and drainage of peritoneal abscess-cultures have been sent 08/06: IR placed drain in abscess and right and gallbladder which are in place Gallbladder drain culture grew Enterococcus Abscess drain culture grew prevotella Patient continues to have elevated WBC count and low-grade fevers 08/09 CT scan shows multiple peritoneal fluid collections. Although patient has drain in place, may not provide adequate source control due to multiple fluid locations. Recommend re-evaluation for abdominal washout due to persistent elevated WBC low-grade fevers. 08/10 repeat blood cultures sent 08/11 fungal blood culture were sent and patient was started on empiric micafungin 08/[address] of abdomen showed
[2023-10-09 07:48] LABS: Hematocrit 36.8 % (42.0-52.0); Hemoglobin 10.7 g/dL (14.0-18.0); Mean Corpuscular HGB Conc 29.1 g/dl (32-36); Mean Corpuscular Hemoglobin 29.6 pg (26-34); Mean Corpuscular Volume 101.7 fl (80-100); Mean Platelet Volume 10.4 fl (7.4-10.4); Platelet Count Result 234 k/mm3 (150-375); Red Blood Count 3.62 M/mm3 (4.6-6.20); Red Cell Distribution Width 18.6 % (11.5-14.5); White Blood Count 8.2 K/mm3 (4.5-10.0)
[2023-10-09 07:59] LABS: Anion Gap 8 mmol/L (8-16); Blood Urea Nitrogen 33 mg/dL (9-20); Carbon Dioxide 30 mmol/L (22-30); Chloride 106 mmol/L (98-107); Estimated CRCL calculation 54 ml/min; Estimated Glomerular Filt Rate 58; Glucose 109 mg/dL (65-110); Potassium 4.4 mmol/L (3.4-5.0); Sodium 144 mmol/L (137-145)
[2023-10-09] MEDS: ASPIRIN 325 MG TABLET FEED TUBE (08:55)
[2023-10-09] MEDS: FAMOTIDINE 20 MG TABLET FEED TUBE (08:55)
[2023-10-09] MEDS: QUEtiapine FUMARATE 25 MG TABLET FEED TUBE (08:55)
[2023-10-09] MEDS: SCOPOLAMINE 1 MG PATCH 1 PATCH TRANSDERM (08:55)
[2023-10-09] MEDS: ENOXAPARIN 40 MG/0.4 ML SYRINGE SUB-Q (08:55)
[2023-10-09] MEDS: SIMETHICONE ORAL SUSPENSION 20 MG/0.3 ML 30 ML BOTTLE 1.2 ML FEED TUBE (08:56)
[2023-10-09] MEDS: TOLNAFTATE 1% POWDER 45 GM BTL 1 APPLIC TOPICAL (08:56)
[2023-10-09] MEDS: MINERAL OIL/WHITE PETROLATUM OINTMENT 1 APPLIC EACH EYE (08:56)
[2023-10-09] MEDS: COLLAGENASE OINT 30 GM TUBE 1 APPLIC TOPICAL (08:57)
--- NOTE | 2023-10-09 11:08 | PCFNICU ---
ICU Rounding Note: Pt current nutrition is Vital AF 1.2 at 70 ml/hr. Last recorded weight is 112.6 kg, stable Bowel Motility:+BM reported 10/09 Labs Reviewed:GFR 58, BUN 33, Hct 36.8,Hgb 10.7 Meds Noted:Lovenox, Synthroid, Seroquel Skin: WNL Additional Notes: Patient current with Trach and PEG. Tube feedings remain at goal rate of 70 ml/hr Vital AF 1.2. Elevated residual noted of 350 ml this morning, tube feeding restarted. Flush 30 ml q 4 hours. Agree with diet orders. Plans for LTAC when bed available. Following daily in ICU rounds. Will monitor weight, labs, skin, meds, TPN every Saturday and Saturday. .
--- NOTE | 2023-10-09 12:01 | PM.IMPN ---
Progress Note: A&P Assessment and Plan (1) Acute respiratory failure: Qualifiers: Respiratory failure complication: hypoxia and hypercapnia Qualified Code(s): J96.01 - Acute respiratory failure with hypoxia; J96.02 - Acute respiratory failure with hypercapnia Code(s): J96.00 - Acute respiratory failure, unspecified whether with hypoxia or hypercapnia Status: Acute Assessment and Plan: Patient admitted for elective repair of a large right inguinal hernia on 08/02/23. Post-operatively, he developed ileus, peritonitis, AFib/RVR, MOISÉS and HoTN. He was moved to the ICU on 08/06 for HoTN. On the morning of 08/15, patient developed acute respiratory distress. ABG 7.37/62/58 so BiPAP ordered but repeat ABG 7.15/101/91 so patient intubated 08/15. CXR reviewed showing diffuse lung disease c/w edema vs PNA vs atelectasis Trach placed 08/30; Trach had to be replaced on 09/09 ENT performed tracheoscopy 09/13 showing the trachea does curve into the anterior tracheal wall but patent Remains on MV. Tolerating trach trials. Appreciate military science teacher and ENT input.? Wean vent as tolerated (2) Sepsis: Qualifiers: Sepsis type: sepsis due to unspecified organism Sepsis acute organ dysfunction status: with acute organ dysfunction Severe sepsis acute organ dysfunction type: acute renal failure Acute renal failure type: unspecified Severe sepsis shock status: without septic shock Qualified Code(s): A41.9 - Sepsis, unspecified organism; R65.20 - Severe sepsis without septic shock; N17.9 - Acute kidney failure, unspecified Code(s): A41.9 - Sepsis, unspecified organism Status: Acute Assessment and Plan: Currently being treated for cholecystitis + pelvic abscesses UCx 08/05, 08/06, 08/16 negative GB Cx 08/06 growing enterococcus but unable to perform sensitivities; treated with a course of linezolid stopped 08/19. Abscess Cx 08/06 Prevotella that is beta-lactamase positive BCx 08/06, 08/10 and 08/16 negative. MRSA nasal swab 08/[address] A/P 08/13 showing multiple intraperitoneal abscesses similar to 08/09 with worsening mass involving the right inguinal canal and right scrotum.? 08/14: Multiple Abd drains placed with culture growing H. parainfluenza and prevotella (no sensitivities but beta lactamase positive) CT A/P 08/18 slight increase in fluid collection adjacent to LLQ pigtail drain measuring 3 cm, other fluid collections are either stable or slightly smaller in size, stable right groin infected hematoma, cystitis versus bladder wall thickening, Weathers catheter in place but balloon not visualized and mild fecal impaction. Tx with meropenem, linezolid. Micafungin added 08/11 he completed a course of linezolid stopped 08/19. meropenem changed to Cefepime and Flagyl. Flagyl and Cefepime stopped 08/23 Micafungin stopped 08/25 after 14 days course Zosyn started 08/23 through 08/26 WBC remaining normal, fevers resolved so?All abx stopped on 08/26 -------- Recurrent fevers so re-cultured and Abx resumed 09/01 BCx 09/01, 09/07 negative Sputum Cx 09/01 negative UCx 09/01 negative; UCx 09/07 growing 10-49K ketan parapsilosis UE/LE Dopplers negative for DVT 09/07 Paracentesis 09/09 returning purulent fluid with cx growing?Bacteroides, klebsiella pneumoniae. CT A/P 09/11 showing LLQ abscess 14cm and Pelvic abscess 12cm.? Abd and pelvic drains placed 09/11: -- 1st cx:?klebsiella pneumoniae CRE -- 2nd cx:?Yeast and Klebsiella pneumoniae CRE Started on Flagyl and Rocephin 09/11 but Rocephin changed to Avycaz on 09/15; Flagyl stopped 09/23/23 Scrotal US 09/12 showing 1cm left epididymis mass likely benign and small left hydrocele with septation. Not felt to have scrotal abscess Diflucan started 09/07 and stopped 09/12 CT A/P 09/18 showing decompressed abscess cavities. WBC normal and fevers resolved. Drain output slowing Avycaz stopped 09/28/23. Monitor closely off abx 10/02: Drain #2 removed by surgery 10/04: Drain #1 removed by s
[2023-10-09 12:47] LABS: Glucose Point of Care 117 mg/dl (65-105)
--- NOTE | 2023-10-09 14:37 | PM.PNGS ---
Progress Note: A&P Assessment and Plan (1) History of tracheostomy: Code(s): Z98.890 - Other specified postprocedural states Status: Chronic Assessment and Plan: Patient transferring to [facility] this afternoon. Hopefully tracheostomy can be removed soon after being at [place]. (2) Respiratory failure: Qualifiers: Chronicity: chronic Respiratory failure complication: hypercapnia Qualified Code(s): J96.12 - Chronic respiratory failure with hypercapnia Code(s): J96.90 - Respiratory failure, unspecified, unspecified whether with hypoxia or hypercapnia Status: Chronic Assessment and Plan: Only receiving pressure support last few days. 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 Nutritional status improving. Subjective Subjective Date/Time Seen: 10/09/23 14:37 Patient reports: no new complaints, pain is less (Denies abdominal pain), bowel movement and afebrile Interval history: Walked with a walker in room this morning. Also did physical therapy. Is tired out from this at present time. Exam Const: General: comfortable and tired appearing GI: Inspection: incision (Healing) GI Palp: Yes Soft to palpation and No Tenderness to palpation present (GI) Urinary Catheter: Urinary Catheter: patent and draining Objective Data Vital Signs Vital Signs: Vital Signs - 24 hr 10/08/23 16:00 10/08/23 16:00 10/08/23 16:00 Temperature 37.3 C Pulse Rate 96 Respiratory Rate 20 Blood Pressure 111/68 Pulse Oximetry 97 97 Oxygen Delivery Mechanical Ventilation Fraction of Inspired Oxygen 25 25 10/08/23 16:15 10/08/23 16:00 10/08/23 18:00 Temperature 37.1 C Pulse Rate 90 88 90 Respiratory Rate 25 H Blood Pressure 147/82 H Pulse Oximetry 96 96 Oxygen Delivery Mechanical Ventilation Fraction of Inspired Oxygen 25 10/08/23 18:00 10/08/23 20:09 10/08/23 20:09 Temperature Pulse Rate 80 86 84 Respiratory Rate 22 H Blood Pressure Pulse Oximetry 96 Oxygen Delivery Mechanical Ventilation Fraction of Inspired Oxygen 25 10/08/23 20:00 10/08/23 20:00 10/08/23 20:00 Temperature Pulse Rate 85 84 Respiratory Rate 22 H Blood Pressure Pulse Oximetry 96 Oxygen Delivery Mechanical Ventilation Fraction of Inspired Oxygen 25 25 10/08/23 20:00 10/08/23 20:30 10/08/23 22:00 Temperature 37.2 C Pulse Rate 86 88 101 H Respiratory Rate 20 21 H Blood Pressure 138/83 Pulse Oximetry 97 Oxygen Delivery Fraction of Inspired Oxygen 10/08/23 22:00 10/08/23 23:20 10/09/23 00:00 Temperature 37.2 C Pulse Rate 101 H 85 85 Respiratory Rate 21 H Blood Pressure 124/75 Pulse Oximetry 95 97 Oxygen Delivery Mechanical Ventilation Fraction of Inspired Oxygen 25 10/09/23 00:00 10/09/23 00:00
--- NOTE | 2023-10-10 10:50 | PC.NURSE ---
Discharge disposition done using information from [facility] and authorization to transfer paperwork. Discharging RN was Isabel Aguilera.
== END 2023-10-09 18:28 | DRG 3 ==
LOC: ANHSURGERY 13:32 → ANH3MEDSUR 13:32 → ANHIMU 08-04 20:54 → ANHICU 08-06 12:28 → ANHIMU 08-12 02:31 → ANHICU 08-15 07:19
PROVIDERS: Family Medicine; Internal Medicine; Internal Medicine Cardiovascular Disease; Internal Medicine Gastroenterology; Internal Medicine Nephrology; Nurse Practitioner Family; Otolaryngology; Student in an Organized Health Care Education/Training Program; Surgery; Admitting Provider Surgery; PCP Family Medicine; Visit Provider Surgery
PROC: 0YU50JZ Supplement Right Inguinal Region with Synthetic Substitute, Open Approach (ICD-10-PCS; principal; 2023-08-02 12:00)
PROC: 0B110F4 Bypass Trachea to Cutaneous with Tracheostomy Device, Open Approach (ICD-10-PCS; principal; 2023-08-30 08:00)
PROC: 0D1M0Z4 Bypass Descending Colon to Cutaneous, Open Approach (ICD-10-PCS; CPT 49000; principal; 2023-09-04 12:00)
PROC: 0DH63UZ Insertion of Feeding Device into Stomach, Percutaneous Approach (ICD-10-PCS; CPT 43246; principal; 2023-09-25 15:30)
DX: K40.90 Unilateral inguinal hernia, without obstruction or gangrene, not specified as recurrent (principal); K65.1 Peritoneal abscess; J69.0 Pneumonitis due to inhalation of food and vomit; G92.8 Other toxic encephalopathy; E43 Unspecified severe protein-calorie malnutrition; J95.821 Acute postprocedural respiratory failure; T81.12XA Postprocedural septic shock, initial encounter; T81.44XA Sepsis following a procedure, initial encounter; N17.9 Acute kidney failure, unspecified; K91.89 Other postprocedural complications and disorders of digestive system; K56.7 Ileus, unspecified; K63.2 Fistula of intestine; J81.1 Chronic pulmonary edema; K81.0 Acute cholecystitis; K91.870 Postprocedural hematoma of a digestive system organ or structure following a digestive system procedure; E87.1 Hypo-osmolality and hyponatremia; K91.61 Intraoperative hemorrhage and hematoma of a digestive system organ or structure complicating a digestive system procedure; K57.20 Diverticulitis of large intestine with perforation and abscess without bleeding; J95.03 Malfunction of tracheostomy stoma; E87.0 Hyperosmolality and hypernatremia; E87.20 Acidosis, unspecified; I25.10 Atherosclerotic heart disease of native coronary artery without angina pectoris; E03.9 Hypothyroidism, unspecified; K60.4 Rectal fistula; I86.1 Scrotal varices; I48.0 Paroxysmal atrial fibrillation; K21.9 Gastro-esophageal reflux disease without esophagitis; E78.5 Hyperlipidemia, unspecified; I95.81 Postprocedural hypotension; I10 Essential (primary) hypertension; N50.89 Other specified disorders of the male genital organs; K66.0 Peritoneal adhesions (postprocedural) (postinfection); D64.9 Anemia, unspecified; B96.89 Other specified bacterial agents as the cause of diseases classified elsewhere; B95.2 Enterococcus as the cause of diseases classified elsewhere; Z95.1 Presence of aortocoronary bypass graft; Z87.891 Personal history of nicotine dependence; Z79.01 Long term (current) use of anticoagulants; Z85.46 Personal history of malignant neoplasm of prostate; Z85.828 Personal history of other malignant neoplasm of skin; Z90.79 Acquired absence of other genital organ(s); I25.2 Old myocardial infarction; Z79.82 Long term (current) use of aspirin
CPT/HCPCS: 10160; 31500; 36415; 36430; 36569; 36600; 43246; 47490; 47531; 49083; 70450; 71045; 71250; 74018; 74019; 74176; 74177; 74178; 75989; 76775; 76870; 80048; 80053; 80069; 80202; 80307; 81001; 81050; 82140; 82375; 82550; 82565; 82570; 82805; 82948; 83050; 83605; 83690; 83735; 83880; 84100; 84145; 84156; 84300; 84439; 84443; 84466; 84478; 84480; 84484; 84540; 85025; 85027; 85610; 85730; 85999; 86140; 86850; 86900; 86901; 86923; 87040; 87070; 87075; 87076; 87077; 87081; 87086; 87088; 87102; 87103; 87106; 87185; 87186; 87205; 87206; 87641; 88302; 88307; 92610; 93005; 93970; 93976; 94002; 94003; 94640; 97110; 97162; 97166; 97530; A9270; C1729; C1769; C1781; C8929; C9113; J0282; J0330; J0690; J0692; J0696; J0714; J1100; J1170; J1200; J1450; J1644; J1650; J1741; J1815; J1836; J1885; J1940; J2020; J2060; J2185; J2248; J2250; J2270; J2371; J2405; J2543; J2704; J2997; J3010; J3370; J3475; J3480; J7030; J7040; J7050; J7060; J7120; P9016; P9047; Q5105; Q9957; Q9967

== ENCOUNTER 2024-01-02 16:56 | Outpatient (CLI) | payer MEDICARE, SELFPAY ==
[2024-01-02 17:33] LABS: Basophils Percent Auto 0.6 % (0.2-1.2); Eosinophils Absolute Auto 0.8 K/mm3 (0-0.3); Eosinophils Percent Auto 12.3 % (0-4.4); Hematocrit 34.5 % (42.0-52.0); Hemoglobin 10.8 g/dL (14.0-18.0); Immature Granulocyte Absolute 0.02 K/mm3 (0.00-0.031); Immature Granulocyte Percent A 0.3 % (0-0.5); Lymphocytes Absolute Auto 2.04 K/mm3 (0.9-3.2); Mean Corpuscular HGB Conc 31.3 g/dl (32-36); Mean Corpuscular Hemoglobin 29.3 pg (26-34); Mean Corpuscular Volume 93.5 fl (80-100); Mean Platelet Volume 10.4 fl (7.4-10.4); Monocytes Absolute Auto 0.5 K/mm3 (0.1-0.6); Monocytes Percent Auto 7.4 % (2.6-8.5); Neutrophils Absolute Auto 3.2 K/mm3 (1.3-6.7); Neutrophils Percent Auto 48.4 % (45.5-73.1); Platelet Count Result 261 k/mm3 (150-375); Red Blood Count 3.69 M/mm3 (4.6-6.20); Red Cell Distribution Width 14.4 % (11.5-14.5); White Blood Count 6.6 K/mm3 (4.5-10.0)
[2024-01-02 17:50] LABS: Alanine Aminotransferase 12 U/L (6-50); Albumin Level 4.2 g/dL (3.5-5.1); Alkaline Phosphatase 88 U/L (38-126); Anion Gap 7 mmol/L (4-12); Aspartate Amino Transferase 18 U/L (17-59); Bilirubin,Total 0.5 mg/dL (0.2-1.3); Blood Urea Nitrogen 25 mg/dL (9-20); Calcium 9.4 mg/dL (8.4-10.2); Carbon Dioxide 25 mmol/L (22-30); Chloride 108 mmol/L (98-107); Estimated Glomerular Filt Rate 58; Glucose 117 mg/dL (65-110); Phosphorus 4.3 mg/dL (2.5-4.5); Potassium 3.8 mmol/L (3.4-5.0); Sodium 140 mmol/L (137-145)
== END 2024-01-02 16:57 | disposition home or self-care (01) ==
PROVIDERS: PCP Family Medicine; Visit Provider Internal Medicine Nephrology
DX: D64.9 Anemia, unspecified (principal); N17.8 Other acute kidney failure; R41.0 Disorientation, unspecified; R82.998 Other abnormal findings in urine; R53.83 Other fatigue; R82.994 Hypercalciuria
CPT/HCPCS: 36415; 80069; 80076; 85025

== ENCOUNTER 2024-01-03 11:40 | Outpatient (CLI) | payer MEDICARE, SELFPAY ==
[2024-01-03 12:48] LABS: Appearance Urine Clear (Clear); Bilirubin Urine Negative (Negative); Blood Urine Negative (Negative); Color Urine Yellow (Yellow); Glucose Urine UA Negative (Negative); Ketones Urine Negative (Negative); Leukocyte Esterase Ur Negative LEU/UL (Negative); Nitrate Urine Negative (Negative); Protein Urine Negative (Negative); Specific Grav Ur 1.016 (1.001-1.035); Urobilinogen Urine 0.2 mg/dL (<2.0)
[2024-01-03 12:49] LABS: Add Urine Microscopic? NO
[2024-01-03 13:56] LABS: Iron 58 ug/dL (49-181)
[2024-01-03 13:58] LABS: Folic Acid 12.3 ng/mL (2.76->20)
[2024-01-03 14:05] LABS: Percent Iron Saturation 23 % (20-50)
== END 2024-01-03 11:41 | disposition home or self-care (01) ==
PROVIDERS: PCP Family Medicine; Visit Provider Internal Medicine Nephrology
DX: R82.998 Other abnormal findings in urine (principal); N17.8 Other acute kidney failure; N18.9 Chronic kidney disease, unspecified; D63.1 Anemia in chronic kidney disease; R41.0 Disorientation, unspecified; R53.83 Other fatigue
CPT/HCPCS: 36415; 81003; 82607; 82746; 83540; 83550; 87086; 87088

== ENCOUNTER 2024-03-25 11:55 | Outpatient (CLI) | payer MEDICARE, SELFPAY ==
[2024-03-25 13:01] LABS: Alanine Aminotransferase 16 U/L (6-50); Albumin Level 4.7 g/dL (3.5-5.1); Alkaline Phosphatase 78 U/L (38-126); Anion Gap 8 mmol/L (4-12); Aspartate Amino Transferase 25 U/L (17-59); Bilirubin,Total 0.7 mg/dL (0.2-1.3); Blood Urea Nitrogen 25 mg/dL (9-20); Calcium 9.8 mg/dL (8.4-10.2); Carbon Dioxide 30 mmol/L (22-30); Chloride 104 mmol/L (98-107); Estimated Glomerular Filt Rate 53; Glucose 94 mg/dL (65-110); Potassium 4.2 mmol/L (3.4-5.0); Sodium 142 mmol/L (137-145)
[2024-03-25 13:21] LABS: INR 1.5; Partial Thromboplastin Time 33.5 Seconds (22.3-36.8); Prothrombin Time 18.5 Seconds (11.1-14.7)
[2024-03-25 13:23] LABS: Basophils Absolute Auto 0.1 K/mm3 (0.0-0.1); Eosinophils Absolute Auto 0.7 K/mm3 (0-0.3); Eosinophils Percent Auto 10.7 % (0-4.4); Hematocrit 41.7 % (42.0-52.0); Hemoglobin 13.1 g/dL (14.0-18.0); Immature Granulocyte Absolute 0.01 K/mm3 (0.00-0.031); Immature Granulocyte Percent A 0.1 % (0-0.5); Lymphocytes Absolute Auto 1.94 K/mm3 (0.9-3.2); Lymphocytes Percent Auto 28.8 % (18.3-44.2); Mean Corpuscular HGB Conc 31.4 g/dl (32-36); Mean Corpuscular Hemoglobin 30.1 pg (26-34); Mean Corpuscular Volume 95.9 fl (80-100); Mean Platelet Volume 11.5 fl (7.4-10.4); Monocytes Absolute Auto 0.5 K/mm3 (0.1-0.6); Monocytes Percent Auto 7.4 % (2.6-8.5); Neutrophils Absolute Auto 3.5 K/mm3 (1.3-6.7); Platelet Count Result 191 k/mm3 (150-375); Red Blood Count 4.35 M/mm3 (4.6-6.20); Red Cell Distribution Width 14.1 % (11.5-14.5); White Blood Count 6.7 K/mm3 (4.5-10.0)
== END 2024-03-25 11:56 | disposition home or self-care (01) ==
LOC: ANHLAB 11:58
PROVIDERS: PCP Family Medicine
DX: I48.91 Unspecified atrial fibrillation (principal); R29.6 Repeated falls; M79.669 Pain in unspecified lower leg
CPT/HCPCS: 36415; 80053; 85025; 85610; 85730

== ENCOUNTER 2024-03-31 07:40 | Outpatient (RCR) | payer MEDICARE, SELFPAY ==
[2024-02-27 09:00] VITALS: BMI 29.2
--- NOTE | 2024-06-30 14:31 | PCWOUND ---
ROGE NOTE Received call from Dr. Armijo office concerning patient need for hernia belt and difficulty ordering belt. Spoke with ce rep they are ordering the hope belt #[id number] XL belt with 3 1/8 inch opening right now. Let Dr. Sim office know of order being placed.
== END 2024-05-27 15:14 | disposition home or self-care (01) ==
LOC: ANHWOC 07:40
PROVIDERS: PCP Family Medicine; Visit Provider Surgery
DX: L98.491 Non-pressure chronic ulcer of skin of other sites limited to breakdown of skin (principal); Z93.3 Colostomy status
CPT/HCPCS: 99212; 99214; A9270; G0463

== ENCOUNTER 2024-04-04 12:40 | Outpatient (CLI) | payer MEDICARE, SELFPAY ==
--- NOTE | ~2024-04-04 | MR_ITS ---
MRI of the brain Clinical History: Head injury, multiple focal Technique: Axial and sagittal T1-weighted images were acquired. These were followed by axial T2-weigh maggie, diffusion weighted, gradient, and FLAIR images. Following intravenous administration of 19 cc Mu ltiHance gadolinium, T1-weighted fat-sat imaging was performed in the axial and coronal planes. Findings: There is no acute infarct, intracranial hemorrhage, or mass lesion. There are mild to moder ate chronic microvascular ischemic changes in the periventricular white matter bilaterally. Ventricles and subarachnoid spaces are mildly dilated. Orbits are unremarkable. Paranasal sinuses and mastoid air cells are clear. Major intracranial flow voids are intact. Sagittal midline structures are intact. No abnormal postcontrast enhancement identified. IMPRESSION: No acute infarct, intracranial hemorrhage, or mass lesion. Mild to moderate chronic microvascular ischemic change, and mild generalized atrophy. Reviewed, dictated and finalized at [facility]. IMPRESSION: No acute infarct, intracranial hemorrhage, or mass lesion. Mild to moderate chronic microvascular ischemic change, and mild generalized at rophy.
== END 2024-04-04 12:41 | disposition home or self-care (01) ==
PROVIDERS: PCP Family Medicine
DX: S09.90XA Unspecified injury of head, initial encounter (principal); R29.6 Repeated falls; I48.91 Unspecified atrial fibrillation; X58.XXXA Exposure to other specified factors, initial encounter; R93.0 Abnormal findings on diagnostic imaging of skull and head, not elsewhere classified
CPT/HCPCS: 70553; A9577

== ENCOUNTER 2024-04-13 18:22 | Inpatient (IN) | payer MEDICARE, SELFPAY ==
--- NOTE | ~2024-04-13 | CT_ITS ---
EXAMINATION: CT brain wo con DATE: 04/13/2024 20:29 INDICATION: weakness . TECHNIQUE: Computed tomography (CT) of the head was performed without intravenous contrast. The mA wa s adjusted according to patient size. Iterative reconstruction technique was employed. The dose-lengt h product was 605.33 mGy-cm. COMPARISON: None. FINDINGS: No acute intracranial hemorrhage or extra-axial fluid collection. No hydrocephalus, mass, or herniation. No acute ischemic infarct. Unremarkable dural venous sinus attenuation. No acute osseous abnormality. Mild right frontal, ethmoid, and left maxillary mucosal thickening, minimal right mastoid fluid, the remaining aerated spaces are clear. Mild atrophy and chronic white matter change. Atherosclerotic intracranial calcification. IMPRESSION: No acute intracranial process. Reviewed, dictated and finalized at location K.
--- NOTE | ~2024-04-13 | XR_ITS ---
EXAMINATION: XR chest 2V Exam Date/Time: 04/13/2024 19:09 CDT HISTORY: weakness Comparison: 09/26/2023. RESULT: Lines, tubes, and devices: Intact sternotomy wires. Mediastinal surgical clips and ostial markers. Lungs and pleura: Emphysematous/senescent change, otherwise clear. Cardiomediastinal silhouette: Stable. Other: No acute osseous or upper abdominal finding. IMPRESSION: No acute cardiopulmonary process. Reviewed, dictated and finalized at location K.
[2024-04-13 18:30] VITALS: BP 131/81; PULSE 97; RESP 20; TEMP 37.3; O2SAT 97
[2024-04-13 18:32] LABS: Glucose Point of Care 107 mg/dl (65-105)
--- NOTE | 2024-04-13 18:33 | ECG_ITS ---
Test Date: 2024-04-13 21:12:34 Measurements Intervals [place] Rate: 87 P: 0 RI: 0 QRS: 17 QRSD: 91 T: -17 QT: 344 QTc: 416 Interpretive Statements ATRIAL FIBRILLATION NONSPECIFIC T-WAVE ABNORMALITY- INFERIOR LEADS BASELINE ARTIFACT- I, II, III, AVR, AVL, AVF ABNORMAL ECG No previous ECG available for comparison Electronically Signed On 04-14-2024 07:08:51 CDT by Servando Cortez D.O.
[2024-04-13 20:00] VITALS: BP 155/95; PULSE 83; RESP 18; TEMP 36.9; O2SAT 97
[2024-04-13 20:44] LABS: Basophils Percent Auto 0.4 % (0.2-1.2); Eosinophils Absolute Auto 0.2 K/mm3 (0-0.3); Eosinophils Percent Auto 3.2 % (0-4.4); Hematocrit 38.9 % (42.0-52.0); Hemoglobin 12.4 g/dL (14.0-18.0); Immature Granulocyte Absolute 0.02 K/mm3 (0.00-0.031); Immature Granulocyte Percent A 0.3 % (0-0.5); Lymphocytes Absolute Auto 0.97 K/mm3 (0.9-3.2); Lymphocytes Percent Auto 13.4 % (18.3-44.2); Mean Corpuscular HGB Conc 31.9 g/dl (32-36); Mean Corpuscular Hemoglobin 30.2 pg (26-34); Mean Corpuscular Volume 94.6 fl (80-100); Mean Platelet Volume 11.6 fl (7.4-10.4); Monocytes Absolute Auto 0.6 K/mm3 (0.1-0.6); Neutrophils Absolute Auto 5.4 K/mm3 (1.3-6.7); Neutrophils Percent Auto 74.7 % (45.5-73.1); Platelet Count Result 173 k/mm3 (150-375); Red Blood Count 4.11 M/mm3 (4.6-6.20); Red Cell Distribution Width 14.6 % (11.5-14.5); White Blood Count 7.3 K/mm3 (4.5-10.0)
[2024-04-13 20:53] LABS: INR 1.3; Partial Thromboplastin Time 35.2 Seconds (22.3-36.8); Prothrombin Time 16.9 Seconds (11.1-14.7)
[2024-04-13 20:54] LABS: Alanine Aminotransferase 14 U/L (6-50); Albumin Level 4.5 g/dL (3.5-5.1); Alkaline Phosphatase 79 U/L (38-126); Anion Gap 11 mmol/L (4-12); Aspartate Amino Transferase 20 U/L (17-59); Bilirubin,Total 0.8 mg/dL (0.2-1.3); Blood Urea Nitrogen 26 mg/dL (9-20); Calcium 9.5 mg/dL (8.4-10.2); Carbon Dioxide 28 mmol/L (22-30); Chloride 100 mmol/L (98-107); Estimated CRCL calculation 45 ml/min; Estimated Glomerular Filt Rate 58; Glucose 99 mg/dL (65-110); Potassium 3.9 mmol/L (3.4-5.0); Sodium 139 mmol/L (137-145)
[2024-04-13 21:05] LABS: Troponin I < 0.012 ng/mL (0.000-0.034)
[2024-04-13 21:33] LABS: Appearance Urine Clear (Clear); Bacteria Urine None Seen /hpf; Bilirubin Urine Negative (Negative); Blood Urine Negative (Negative); Color Urine Yellow (Yellow); Glucose Urine UA Negative (Negative); Ketones Urine Negative (Negative); Leukocyte Esterase Ur Negative LEU/UL (Negative); Mucus Urine Present /lpf; Need Manual Microscopic Reviewed; Nitrate Urine Negative (Negative); Non Pathogenic Casts 0-2; Protein Urine 1+ mg/dL (Negative); Specific Grav Ur 1.022 (1.001-1.035); Squamous Epithelial Cell Urine None Seen /hpf (Few); WBC Urine 0-5 /hpf (0-3)
[2024-04-13 21:36] LABS: Add Urine Microscopic? YES
[2024-04-13 21:38] LABS: Creatine Kinase 36 U/L (55-170)
--- NOTE | 2024-04-13 21:47 | ED.WEAKNESS ---
HPI - Weakness General Chief complaint: Neuro Symptoms/Deficit Stated complaint: unable to walk, confusion Time Seen by Provider: 04/13/24 20:18 Source: patient and family Mode of arrival: wheelchair Limitations: other (poor historian) History of Present Illness HPI Narrative: This is an 84-year-old male that presents to the emergency department for generalized weakness. reports they had been running errands today. He stayed in the care while she went into the store. When she went into the store the car was on and the air conditioning was on. When she came back out the air conditioning was off and the patient was sleeping. She had a lot of difficulty waking him. He has not been able to stand since. He reports weakness in his legs. Otherwise has no focal complaints. Family brought him in for further evaluation. Related Data Home Medications Medication Instructions Recorded Confirmed loratadine 10 mg tablet (Claritin) 10 mg PO DAILY 05/15/22 03/27/24 rivaroxaban 20 mg tablet (Xarelto) 20 mg PO QPM 07/30/23 03/27/24 docusate sodium 50 mg capsule 50 mg PO BID 12/02/23 03/27/24 simethicone 62.5 mg oral strips 1 strip PO DAILY 12/02/23 03/27/24 (Gas-X) aspirin 81 mg chewable tablet 1 tablet PO DAILY 01/06/24 03/27/24 docusate sodium 100 mg capsule 100 mg PO DAILY 03/25/24 03/27/24 (Stool Softener) mecobalamin (vitamin B12) 5,000 mcg PO 03/25/24 03/27/24 mcg disintegrating tablet pyridoxine (vitamin B6) 100 mg 100 mg PO DAILY 03/25/24 03/27/24 tablet Allergies Allergy/AdvReac Type Severity Reaction Status Date / Time benazepril Allergy Unknown Unknown - Verified 03/25/24 09:21 PT UNABLE TO RECALL Yoeetyg-DTV-RzK Reductase Allergy Unknown Joint Pain Verified 03/25/24 09:21 Inhibitor & MUSCLE [Sscwqmc-Mps-Oya Reductase WEAKNESS Inhibitor] halobetasol AdvReac Rash Verified 03/25/24 09:21 Review of Systems Review of Systems: CONSTITUTIONAL: Denies fever CARDIOVASCULAR: Denies chest pain, palpitations RESPIRATORY: Denies dyspnea. GASTROINTESTINAL: Denies abdominal pain, nausea, vomiting MUSCULOSKELETAL: Denies back pain NEUROLOGIC: Reports lower extremity weakness. Denies numbness All systems reviewed & are unremarkable except as noted in HPI and below PMFSH Past Medical History Medical History Basal cell carcinoma BMI 31.0-31.9,adult BMI 32.0-32.9,adult BMI greater than 30 Brain bleed CAD (coronary artery disease) Constipation Decreased ROM of left shoulder Edema of scrotum Elevated glucose GERD (gastroesophageal reflux disease) Hepatitis B Hyperlipidemia Hypertension Hypothyroid Myocardial infarct Paroxysmal atrial fibrillation Prediabetes Prostate CA Screening for prostate cancer Seizures Surgical History Surgical History H/O arthroscopy lt knee H/O prostatectomy H[facility] of colonoscopy 2012 - Dr. Yen Hx of local excision of skin lesion Family History Family History Father Malignant neoplasm of prostate Sibling Ovarian cancer Mother , epilepsy No problems noted. Sibling No problems noted. Social History Social History Smoking packs per day: 2 Smoking cigarettes per day: 40.0 Years smoked: 12 Smoking pack-years: 24.00 Smoking status: Former smoker Tobacco type: cigarettes Second hand tobacco smoke exposure: No Smoking end date: 09/23/70 Alcohol intake: unknown Alcohol use details: RARELY - 1/2 CASE BEER/YR Substance use: unknown Substance use type: does not use Do You Feel Safe in your Home?: Yes Lack of Transportation: No Lack of Food: Never True Current Housing: I Have Housing Concerned About Future Housing: No Diffic
[2024-04-13] MEDS: SODIUM CHLORIDE 0.9% IV 500 ML 999 ML IV CONT (22:03)
[2024-04-13 22:04] VITALS: BP 158/86; PULSE 92; RESP 20; TEMP 36.6; O2SAT 97
[2024-04-13 22:21] LABS: Influenza A QL RT-PCR Negative (Negative); Influenza B QL RT-PCR Negative (Negative); RSV RNA, RT-PCR Negative (Negative); SARS-CoV-2 RNA PCR Positive (Negative)
[2024-04-13 23:35] VITALS: BP 166/93; PULSE 95; RESP 18; O2SAT 96
--- NOTE | 2024-04-14 01:46 | ADMGEN ---
This patient, Omar Ryan, was admitted to 3 [facility] Surg Room 317-02. Patient/family oriented to hospital policies and general routines including ID bracelet, bed and alarms, visiting hours, pain management, procedures, bathroom and other care routines, personal items, smoking policy, room service/diet, and visiting hours. Information on how to activate the Rapid Response Team has been discussed. Patient/Family are encouraged to report perceived risks to care and to ask questions if they do not understand what they are told or what they should do.
[2024-04-14 02:09] VITALS: BP 169/90; PULSE 94; RESP 22; TEMP 37.1; O2SAT 100; BMI 27.8
[2024-04-14 04:00] VITALS: BP 162/90; PULSE 84; PULSE 95; RESP 22; TEMP 37.1; O2SAT 96
[2024-04-14 09:15] LABS: Basophils Percent Auto 0.6 % (0.2-1.2); Eosinophils Absolute Auto 0.1 K/mm3 (0-0.3); Eosinophils Percent Auto 1.5 % (0-4.4); Hematocrit 40.1 % (42.0-52.0); Hemoglobin 12.8 g/dL (14.0-18.0); Immature Granulocyte Absolute 0.02 K/mm3 (0.00-0.031); Immature Granulocyte Percent A 0.3 % (0-0.5); Lymphocytes Absolute Auto 1.11 K/mm3 (0.9-3.2); Lymphocytes Percent Auto 17.9 % (18.3-44.2); Mean Corpuscular HGB Conc 31.9 g/dl (32-36); Mean Corpuscular Hemoglobin 30.3 pg (26-34); Mean Corpuscular Volume 94.8 fl (80-100); Mean Platelet Volume 11.4 fl (7.4-10.4); Monocytes Absolute Auto 0.6 K/mm3 (0.1-0.6); Neutrophils Absolute Auto 4.3 K/mm3 (1.3-6.7); Neutrophils Percent Auto 69.7 % (45.5-73.1); Platelet Count Result 162 k/mm3 (150-375); Red Blood Count 4.23 M/mm3 (4.6-6.20); Red Cell Distribution Width 14.6 % (11.5-14.5); White Blood Count 6.2 K/mm3 (4.5-10.0)
[2024-04-14 09:38] LABS: Alanine Aminotransferase 13 U/L (6-50); Albumin Level 4.2 g/dL (3.5-5.1); Alkaline Phosphatase 77 U/L (38-126); Anion Gap 10 mmol/L (4-12); Aspartate Amino Transferase 23 U/L (17-59); Bilirubin,Total 0.8 mg/dL (0.2-1.3); Blood Urea Nitrogen 20 mg/dL (9-20); Calcium 9.1 mg/dL (8.4-10.2); Carbon Dioxide 28 mmol/L (22-30); Chloride 100 mmol/L (98-107); Estimated CRCL calculation 45 ml/min; Estimated Glomerular Filt Rate 58; Glucose 105 mg/dL (65-110); Potassium 3.8 mmol/L (3.4-5.0); Sodium 138 mmol/L (137-145)
[2024-04-14 11:18] VITALS: BP 125/82; PULSE 94; RESP 18; TEMP 36.9; O2SAT 98
--- NOTE | 2024-04-14 11:20 | PM.IMHP ---
H&P: HPI History of Present Illness Date/Time: 04/14/24 11:20 Chief Complaint: Generalized weakness Narrative: Patient is an 84-year-old male who was brought to the emergency department by his for reports of generalized weakness. As noted in the medical record patient was sleeping and the vehicle while his when shopping in a store upon return patient was difficult to arouse and had severe weakness in his lower extremities. Patient has a significant past medical history for CAD, SD, atrial fibrillation, prostate cancer, previous bowel resection with colostomy, respiratory failure with previous tracheostomy and hypothyroidism. During assessment patient was alert and oriented x 3 and answered questions appropriately. Patient stated he was just tired. Initial findings in the emergency department showed labs unremarkable however patient did test positive for COVID-19, CXR with no acute cardiopulmonary process, CT head with no acute intracranial process. Patient also had an MRI done 10 days ago with new acute infarct or intracranial hemorrhage showed mild to moderate chronic microvascular ischemia. Patient was admitted to the medical-surgical unit further evaluation and treatment of generalized weakness will have consult to PT/OT as well as supportive care for COVID 19. Review of Systems Review of Systems: All systems reviewed & are unremarkable except as noted in HPI and below PMFSH Past Medical History Medical History Basal cell carcinoma BMI 31.0-31.9,adult BMI 32.0-32.9,adult BMI greater than 30 Brain bleed CAD (coronary artery disease) Constipation Decreased ROM of left shoulder Edema of scrotum Elevated glucose GERD (gastroesophageal reflux disease) Hepatitis B Hyperlipidemia Hypertension Hypothyroid Myocardial infarct Paroxysmal atrial fibrillation Prediabetes Prostate CA Screening for prostate cancer Seizures Surgical History Surgical History H/O arthroscopy lt knee H/O prostatectomy H[facility] 2012 - Dr. Yen Hx of local excision of skin lesion Family History Family History Father Malignant neoplasm of prostate Sibling Ovarian cancer Mother , epilepsy No problems noted. Sibling No problems noted. Social History Social History Smoking packs per day: 2 Smoking cigarettes per day: 40.0 Years smoked: 12 Smoking pack-years: 24.00 Smoking status: Former smoker Tobacco type: cigarettes Second hand tobacco smoke exposure: No Smoking end date: 09/23/70 Alcohol intake: never Alcohol use details: RARELY - 1/2 CASE BEER/YR Substance use: never Substance use type: does not use Do You Feel Safe in your Home?: Yes Lack of Transportation: No Lack of Food: Never True Current Housing: I Have Housing Concerned About Future Housing: No Difficulty Paying Gas/Electric Bills: No Difficulty Paying for Meds: No Currently Unemployed: No Education: High School Diploma/GED Difficulty w/ Childcare or Family Care: No Living arrangements: with family Occupation/Education: retired 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
[2024-04-14] MEDS: CYANOCOBALAMIN 1,000 MCG TABLET 5000 MCG PO (11:34)
[2024-04-14] MEDS: LORATADINE 10 MG TABLET PO (11:35)
[2024-04-14] MEDS: DOCUSATE SODIUM 100 MG CAPSULE PO (11:35)
[2024-04-14] MEDS: ASPIRIN 81 MG CHEWABLE TABLET PO (11:35)
[2024-04-14] MEDS: PYRIDOXINE HCL 50 MG TABLET 100 MG PO (11:35)
[2024-04-14] MEDS: FAMOTIDINE 20 MG TABLET PO (11:35)
[2024-04-14] MEDS: TOLNAFTATE 1% POWDER 45 GM BTL 1 APPLIC TOPICAL ×2 (11:36→20:22)
[2024-04-14] MEDS: dexAMETHasone SOD PHOS INJ 4 MG/ML VIAL 6 MG IV PUSH (11:58)
[2024-04-14 14:34] VITALS: BP 172/71; PULSE 92; RESP 20; TEMP 37.1; O2SAT 89
[2024-04-14] MEDS: DOCUSATE SODIUM LIQ 100 MG/10 ML UDC 50 MG PO (17:05)
[2024-04-14] MEDS: polyethylene glycoL 3350 17 GM POWD.PACK PO (17:06)
[2024-04-14 20:00] VITALS: BP 134/85; PULSE 89; PULSE 92; RESP 20; TEMP 36.5; O2SAT 99
[2024-04-14] MEDS: guaiFENesin 12 HR 600 MG TABCR PO (20:22)
[2024-04-15] VITALS (9 sets, daily range): BP systolic 117–158; BP diastolic 68–98; PULSE 51–99; RESP 16–22; TEMP 35.9–36.6; O2SAT 96–98
--- NOTE | 2024-04-15 04:39 | PC.NURSE ---
Pt has been assessed multiple times throughout the geometrician. Pt has been A&O 4 the entire time. Pt has been ambulating independently (PIPELINE WELDER a/o RN in room as standby) without any difficulty, weakness, or unsteady gate multiple times throughout the night. Pt has been repeatedly stating that he acts out (pretends to sleep, refuses to walk, etc.) because he is annoyed by a/o angry with his . Pt has said these statements and displayed the aforementioned behavior to multiple staff members.
[2024-04-15] MEDS: LEVOTHYROXINE SODIUM 100 MCG TABLET PO (06:04)
[2024-04-15 07:10] LABS: Mean Corpuscular HGB Conc 33.3 g/dl (32-36); Mean Corpuscular Hemoglobin 31.3 pg (26-34); Mean Platelet Volume 11.6 fl (7.4-10.4); Platelet Count Result 164 k/mm3 (150-375); Red Blood Count 4.15 M/mm3 (4.6-6.20); Red Cell Distribution Width 14.4 % (11.5-14.5); White Blood Count 5.9 K/mm3 (4.5-10.0)
[2024-04-15] MEDS: PANTOPRAZOLE 40 MG TABLET PO (09:30)
[2024-04-15] MEDS: PYRIDOXINE HCL 50 MG TABLET 100 MG PO (09:30)
[2024-04-15] MEDS: DOCUSATE SODIUM 100 MG CAPSULE PO (09:30)
[2024-04-15] MEDS: LORATADINE 10 MG TABLET PO (09:30)
[2024-04-15] MEDS: CYANOCOBALAMIN 1,000 MCG TABLET 5000 MCG PO (09:30)
[2024-04-15] MEDS: FOLIC ACID 1 MG TABLET PO (09:30)
[2024-04-15] MEDS: MULTIVITAMINS THERAPEUTIC TAB (*BKC) 1 TABLET PO (09:30)
[2024-04-15] MEDS: ASPIRIN 81 MG CHEWABLE TABLET PO (09:30)
[2024-04-15] MEDS: FAMOTIDINE 20 MG TABLET PO (09:31)
[2024-04-15] MEDS: guaiFENesin 12 HR 600 MG TABCR PO (09:31)
[2024-04-15] MEDS: LACTATED RINGERS 1,000 ML 999 ML IV CONT (10:35)
[2024-04-15] MEDS: TOLNAFTATE 1% POWDER 45 GM BTL 1 APPLIC TOPICAL (12:35)
[2024-04-15] MEDS: dexAMETHasone SOD PHOS INJ 4 MG/ML VIAL 6 MG IV PUSH (12:35)
--- NOTE | 2024-04-15 13:33 | PM.DS ---
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 Recent falls at home Holding Xarelto we need to discontinue patient does have history of brain bleed COVID Supportive care. Monitor for COVID pneumonia, acute respiratory distress syndrome. On room air asymptomatic respiratory status supplemental oxygen if needed Decadron 6 mg daily Folic acid in multi-vitamin guaifenesin scheduled for cough gentle IV hydration keep patient dry PT/OT Antipyretics for any fever HX Constipation: Resumed home stool softeners HX colostomy: Colostomy care HX GERD: PPI HX hypothyroidism: Resume levothyroxine, TSH pending Code status: Full code per patient DVT prophylaxis: Xarelto/SCDs Xarelto on hold need to clarify patient has history of brain bleed as well as recent falls Stress ulcer prophylaxis: Protonix 40 daily PT/OT notes: PT OT pending Disposition: Patient was admitted to the medical unit for further evaluation treatment of generalized weakness recent fall history of as well as supportive care for testing positive for COVID-19. PT OT pending will continue treatment and evaluate recommendations from Physical therapy for discharge needs. DS: Summary Hospital Course Hospital Course: Patient is an 84-year-old male with past medical history of CAD, mi, atrial fib, prostate cancer who presented to the ED with complaints of generalized weakness. Patient stated that he has been having some falls. He also stated that he has been pretty weak. Upon arrival to the ED was noted that he was positive for COVID-19. Chest x-ray showed no acute cardiopulmonary process. CT of the head showed no acute intracranial process. MRI that was done 10 days ago showed no acute infarct or intracranial hemorrhage. Patient was noted to be orthostatic hypotensive patient was given IV fluids which orthostatic hypotension did get better and resolved lying 153/98, sitting 154/88, standing 142/88. Patient was also encouraged not to work outside with the heat or been at the waist unlock his knees. Currently patient denies any chest pain, shortness a breath, nausea, vomiting, diarrhea or constipation. Patient also states that he feels okay. He has been alert oriented x4. At this point patient is stable for discharge for labs and vital signs. Status at Discharge Functional status at discharge: uses cane/walker Overall status at discharge: patient is progressing back to baseline Time Spent with Patient Time attestation: Total time spent providing and/or coordinating discharge services: 43 minutes Time spent: Greater than 30 minutes Specific discharge activities: Diagnostic testing, chart review, developing a treatment plan, education, care coordination documentation, physical exam, result review Exam Narrative: Physical Exam: GENERAL: Alert and oriented x 3. No acute distress. EYES: EOMI. No scleral icterus. PERRLA. HEENT: Moist mucous membranes. Tracheostomy LUNGS: Clear to auscultation bilaterally. No accessory muscle use. CARDIOVASCULAR: Regular rate and rhythm. No murmur. No JVD. S1-S2 ABDOMEN: Soft, non tenderness and non-disten
== END 2024-04-15 15:40 | disposition home health service (06) | DRG 179 ==
LOC: ANHED 23:41 → ANH3MEDSUR 04-14 01:14
PROVIDERS: Emergency Medicine; Nurse Practitioner Family; Admitting Provider Internal Medicine; Emergency Provider Physician Assistant; PCP Family Medicine; Visit Provider Nurse Practitioner
DX: U07.1 COVID-19 (principal); E03.9 Hypothyroidism, unspecified; E78.5 Hyperlipidemia, unspecified; I10 Essential (primary) hypertension; I25.10 Atherosclerotic heart disease of native coronary artery without angina pectoris; I25.2 Old myocardial infarction; I48.0 Paroxysmal atrial fibrillation; I95.1 Orthostatic hypotension; K59.00 Constipation, unspecified; K21.9 Gastro-esophageal reflux disease without esophagitis; Z93.3 Colostomy status; Z93.0 Tracheostomy status; Z79.01 Long term (current) use of anticoagulants; Z79.82 Long term (current) use of aspirin; Z90.79 Acquired absence of other genital organ(s); Z95.1 Presence of aortocoronary bypass graft; Z85.46 Personal history of malignant neoplasm of prostate; Z85.828 Personal history of other malignant neoplasm of skin; Z87.891 Personal history of nicotine dependence; Z87.820 Personal history of traumatic brain injury
CPT/HCPCS: 36415; 70450; 71046; 80053; 81001; 82550; 82948; 84443; 84484; 85025; 85027; 85610; 85730; 87637; 93005; 96360; 96361; 96374; 97161; 97165; 99199; 99285; A9270; G0378; J1100; J7040; J7120

== ENCOUNTER 2024-07-17 10:48 | Outpatient (CLI) | payer MEDICARE, SELFPAY ==
[2024-07-17 11:34] LABS: Hematocrit 40.4 % (42.0-52.0); Hemoglobin 12.8 g/dL (14.0-18.0); Mean Corpuscular HGB Conc 31.7 g/dl (32-36); Mean Corpuscular Hemoglobin 30.8 pg (26-34); Mean Corpuscular Volume 97.3 fl (80-100); Mean Platelet Volume 10.9 fl (7.4-10.4); Platelet Count Result 183 k/mm3 (150-375); Red Blood Count 4.15 M/mm3 (4.6-6.20); Red Cell Distribution Width 13.7 % (11.5-14.5); White Blood Count 7.4 K/mm3 (4.5-10.0)
[2024-07-17 11:52] LABS: Alanine Aminotransferase 19 U/L (6-50); Albumin Level 4.5 g/dL (3.5-5.1); Alkaline Phosphatase 75 U/L (38-126); Anion Gap 11 mmol/L (4-12); Aspartate Amino Transferase 26 U/L (17-59); Bilirubin,Total 0.7 mg/dL (0.2-1.3); Blood Urea Nitrogen 26 mg/dL (9-20); Calcium 9.5 mg/dL (8.4-10.2); Carbon Dioxide 30 mmol/L (22-30); Chloride 102 mmol/L (98-107); Estimated Glomerular Filt Rate > 60; Glucose 92 mg/dL (65-110); Potassium 4.2 mmol/L (3.4-5.0); Sodium 143 mmol/L (137-145)
[2024-07-17 12:58] LABS: Folic Acid > 20.0 ng/mL (2.76->20)
== END 2024-07-17 10:49 | disposition home or self-care (01) ==
LOC: ANHLAB 10:51
PROVIDERS: PCP Family Medicine; Visit Provider Nurse Practitioner Family
DX: R42 Dizziness and giddiness (principal); R53.1 Weakness; R79.89 Other specified abnormal findings of blood chemistry; U07.1 COVID-19; R51.9 Headache, unspecified
CPT/HCPCS: 36415; 80053; 82607; 82746; 84443; 85027

== ENCOUNTER 2024-09-14 11:00 | Outpatient (RCR) | payer MEDICARE, SELFPAY ==
--- NOTE | 2024-08-10 12:16 | OPREHPOC ---
Outpatient Therapy Plan of Care This is a Multidisciplinary Plan of Care that may contain components documented by all disciplines (PT, OT, and ST.) PT Problem 1 PT Problem #1 Knowledge Deficit PT Goal 1 Goal / Goal Update *indep with HEP Target Visit 8 PT Problem 2 PT Problem #2 Pain PT Goal 1 Goal / Goal Update 1* pt report neck pain/headaches at 3/10 at worst 2* pt report times of NO neck pain or headaches Target Visit 8 PT Problem 3 PT Problem #3 Impaired Flexibility PT Goal 1 Goal / Goal Update *increase cervical rotation ROM in sitting, to improve driving and mobility/gait skill 1 * rotation R 45' 2* rotation L 55' Target Visit 8 PT Problem 4 PT Problem #4 Impaired Strength PT Goal 1 Goal / Goal Update *increase cervical-thoracic strength to improve position of spine and posture 1* pt perform strengthening exercises x 20 reps Target Visit 8
--- NOTE | 2024-08-10 12:16 | PTOPEVAL1 ---
Assessment and note entered by Silvia Jones, PT Evaluation Information Assessment Status Evaluation ICD-10 Condition Codes (PT) Cervicalgia M54.2,Repeated falls R29.6,R26.9, Dizziness & Giddiness R42 Subjective Information fell in February- hit head, testing was negative except decrease blood to brain since fall, have faint headache all time, decreased since onset; and neck pain; since February have had about 12 falls: like an unknown force is pushing him over; no pattern-- falls in all directions; no pattern or discrimination noted; occur in AM/PM, indoors/ outdoors; have the sensation that he is going to fall and reaches out for something to hold onto. does not have any spinning sensations HX: from Jul to November- in hospital,& rehab due to hernia surgery, ostomy, infections, intubated; he returned back to his normal activity after this; Activity: home with ; single leg home; walk 2 miles for fitness; active lifestyle; does not use a cane or walker. Meds: cardiac, thyroid, HTN Reported Pain Level Pain Score Self Report Additional Pain Score Comments pain range in the past week 1-6/10; have a stiff neck since been in hospital, sleep with wedge under pillow at night; slight headache all the time; popping and cracking in his neck Assessment PT Clinical Summary Nader has the diagnosis of dizziness, falls. Dizziness Handicap Index rating of 2% limitation in activity. He reports falling in February and hitting his head, since then he has had more neck pain and headache is constant. He has had falls, feels like he is being pushed over, but does not have any spinning sensation. And he cannot report any pattern to the falls. He has appointments upcoming with ENT and neurologist follow up from testing he had done. Other factors affecting his mobility: decrease vision/ to have cataract surgery in September, TYONEK, cardiac issues. With the evaluation: vestibular/ BPPV testing was negative; he has decreased cervical ROM and poor posture of his neck and shoulders, with tightness of musculature and headaches; his BP did decrease with standing up, from 157/94 to 130/68, without any symptoms reported; Skilled PT services are indicated for treatment to cervical pain and tightness: modalities for pain and spasms, therapeutic exercises to improve posture and education for HEP and posture correction. Will continue to monitor vestibular s/s and vitals with treatment PRN. Has upcoming appt with ENT and neurologist-- will see what they report. Plan of Care Interventions Electrical Stimulation,Hot Pack/Cold Pack,Manual Therapy,Neuro Re-education,Therapeutic Activities, Therapeutic Exercise,Ultrasound,pt education Other Interventions taping PT Services Indicated Yes Treatment Frequency and 1-2x/wk for 8 visits Duration These treatments will address the objective and functional deficits as defined above. The patient will be advanced safely and appropriately in order for the patient to progress towards his/her prior level of function. Additional exercises will be introduced and as well as a comprehensive home exercise program upon discharge, if needed, ?to ensure carryover of functional gains achieved in the clinic. This treatment plan has been reviewed and agreement upon by the patient.
--- NOTE | 2024-09-14 11:52 | PTOPDC ---
Assessment and note entered by Silvia Jones, PT Assessment Status Discharge ICD-10 Condition Codes (PT) Cervicalgia M54.2,Repeated falls R29.6, Abnormalities of gait and mobility R26.9,Dizziness and Giddiness R42 Subjective Information neck is not hurting as much; does not have any dizziness; have a dull, constant headache all the time, gets worse for few minutes with coughing or sneezing; have not had any falls, but had near falls, able to catch himself and not fall; problems with leaning over and reaching to a lower shelf and squatting down; going to have a tube put in R ear next week and have cataract surgery in September; also has some dental work, stretching over 6 month time frame; have been doing the exercises from therapy at home. Reported Pain Level Pain Score Self Report Additional Pain Score Comments pain range of 1-10/10; sharp pain up to a 10/10 with sneezing or coughing; do not do anything to help the neck pain or headaches. Assessment PT Clinical Summary Nader has received 8 PT sessions. Compared to the initial evaluation: Dizziness Handicap index from 2 to 0%-- no longer reports any dizziness, but has constant dull headache; pain rating from 1-6/10 to 1-10/10 with neck pain and headaches that increase with sneezing or coughing; increase cervical rotation to R ROM from 35' to 55'; no pain reported with cervical ROM but tightness of neck; also reports some R and L shoulder pain; increase strength of cervical-thoracic- scapular musculature. Continues to have forward head with rounded shoulders and thoracic spine; education for HEP and posture. His blood pressure today was 160/99 with sitting and resting. Instructed pt to monitor his BP at home and contact provider if it continues to be elevated. The goals were partially met. Discharge PT services. He is to continue with his HEP. Plan of Care PT Services Indicated No
== END 2024-09-14 14:07 | disposition home or self-care (01) ==
LOC: ANHPT 11:00
PROVIDERS: PCP Family Medicine; Visit Provider Nurse Practitioner Family
DX: R42 Dizziness and giddiness (principal); R53.1 Weakness; Z91.81 History of falling
CPT/HCPCS: 97110; 97112; 97162; 97530

== ENCOUNTER 2024-11-06 09:36 | Inpatient (IN) | payer MEDICARE, SELFPAY ==
[2024-11-06] VITALS (7 sets, daily range): BP systolic 120–184; BP diastolic 70–103; PULSE 70–93; RESP 16–22; TEMP 36.1–36.6; O2SAT 96–98; BMI 27.3
--- NOTE | ~2024-11-06 | XR_ITS ---
MODIFIED ESOPHAGRAM HISTORY: Dysphagia. TECHNIQUE: Modified barium esophagram was performed on 11/09/2024. I administered fluoroscopy and perf ormed the exam with speech pathologist. Patient was seated for lateral fluoroscopic imaging for birgit stion of thin liquids, pudding, solids and quantified amounts, followed by thin liquids in uncontroll ed amounts. This was recorded on tape. A single fluoroscopic spot image was also recorded. The DAP fo r this procedure was 1.565 Gycm2. The amount of fluoroscopy time used during this procedure was 2.9 m inutes. FINDINGS: Oral stage: Adequate function. Pharyngeal stage: There is laryngeal penetration and aspiration during swallow solids. There is howev er risk of aspiration with all consistencies resulting accumulation of ingested material within a lar ge Zenker's diverticulum with backflow contributing to laryngeal penetration following the swallow wi th all trials. Cervical/esophageal stage: Zenker's diverticulum with backflow. 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 Please correlate with speech pathologist findings and specific feedi ng recommendations. Reviewed, dictated and finalized at location A. 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 Pl ease correlate with speech pathologist findings and specific feeding recommenda tions.
--- NOTE | ~2024-11-06 | XR_ITS ---
EXAMINATION: XR fl Dobhoff insert/rad w img DATE: 11/10/2024 09:08 INDICATION: Silent aspiration requiring Dobbhoff placement. TECHNIQUE: Fluoroscopy was utilized for guidance during Dobbhoff type nasoenteric feeding tube placem ent. 20 mL Omnipaque-350 water-soluble contrast was injected through the tube to aid placement. The c atheter was then flushed with 10 mm sterile saline. Total of 3 fluoroscopic images were recorded. The amount of fluoroscopy time used during this procedure was 0.5 minutes. Total DAP was 69 Gycm^2. COMPARISON: None. FINDINGS/IMPRESSION: The tip of the Dobbhoff type nasoenteric feeding tube is in the second portion t he duodenum with some redundancy of the catheter in the stomach. Reviewed, dictated and finalized at location A. HERIZATION AND HOUSING INSPECTOR
--- NOTE | ~2024-11-06 | CT_ITS ---
EXAMINATION: CTA BRAIN/CAROTID DATE: 11/06/2024 11:20 INDICATION: Dizziness, lethargy and slurred speech. TECHNIQUE: Computed tomographic angiography (CTA) of the head and neck was performed with 100 mL Omni paque-350 intravenous contrast. Multiplanar reconstructions and maximum intensity projection 3D-recon structions of the carotid arteries and of the intracranial arteries were created by the technologist on a separate workstation. Precontrast CT of the head was also obtained. Automated exposure control and iterative reconstruction technique were employed.The dose-length product was 1861.78 mGy-cm. COMPARISON: Head CT dated 04/13/2024 and brain MR dated 04/04/2024 FINDINGS: Carotid arteries: Visualized portion of the aortic arch and the great vessels arising from the arch are normal in calib er with small amount scattered nonhemodynamically significant atherosclerotic plaque and no dissectio n. There is 50% stenosis of the right carotid bulb relative to normal distal artery lumen diameter (N ASCET criteria). There is atherosclerotic plaque with 0% stenosis of the left carotid bulb relative t o normal distal artery lumen diameter. The left vertebral artery is dominant. There is small amount o f atherosclerotic plaque at the origins of the bilateral vertebral arteries which appears potentially minimally significant on the right but which too small in caliber relative to the resolution for acc urate quantitative assessment. Mild biapical pleural-parenchymal scarring. There is some groundglass opacity and smooth septal line thickening in the visualized upper lungs consistent with mild pulmonar y edema. Mild to moderate cervical spondylosis. Head: No acute intracranial hemorrhage, acute infarction or abnormal extra axial fluid collection. There is mild scattered white matter hypoattenuation consistent with chronic small vessel ischemic disease. S ymmetric prominence of the sulci consistent with mild age-appropriate diffuse cerebral volume loss. V entricles are normal and symmetric. No mass/mass effect. No abnormally enhancing brain lesions on pos tcontrast imaging. The orbits, paranasal sinuses and mastoid air cells are normal. Intracranial arteries Left vertebral artery is dominant. Atherosclerotic plaque without hemodynamically significant stenosi s at the bilateral carotid siphons. There is additional small amount of atherosclerotic plaque at the bilateral vertebral and basilar arteries. This could be evaluated on the subsequent at the confluenc e of the right vertebral artery with the left vertebral and basilar arteries however given the diamet er of the vessels to small for quantitative assessment. There is no hemodynamically significant steno sis in the vertebral, basilar and internal carotid arteries. There are no aneurysms identified. Both A1 and P1 segments are patent. The right P1 segment is diminutive with vascular flow also supplied v ia a larger caliber patent right posterior communicating artery. There is also patent intercommunicat ing artery and diminutive left posterior commuting artery. Cerebral arterial arborization appears sym metric. IMPRESSION: 1. 50% stenosis of the right carotid bulb relative to normal distal artery lumen diameter (NASCET cri teria). 2. Atherosclerotic plaque with 0% stenosis of the left carotid bulb relative to normal distal artery lumen diameter. 3. Left vertebral artery is dominant with potentially minimally significant stenosis at the proximalm ost and diminutive distalmost right vertebral artery. Otherwise unremarkable cerebral CT angiogram wi th no other hemodynamically significant stenosis, aneurysm or thrombosis. 4. Normal aging brain. No acute intracranial process or abnormally enhancing brain lesions. 5. Mild pulmonary edema in the visualized upper lungs. Reviewed, dictated and finalized at location A. ILLE MACHINE OPERATOR IMPRESSION: 1. 50% stenosis of the right carotid bulb relative to normal distal artery lume n diameter (NASCET criteria). 2. Atherosclerotic plaque with 0% stenosis of the left carotid bulb relative to normal distal artery lumen diameter. 3. Left vertebral artery is dominant with potentially minimally significant pablo nosis at the proximalmost and diminutive distalmost right vertebral artery. Oth erwise unremarkable cerebral CT angiogram with no other hemodynamically signifi cant stenosis, aneurysm or thrombosis. 4. Normal aging brain. No acute intracranial process or abnormally enhancing br ain lesions. 5. Mild pulmonary edema in the visualized upper lungs.
--- NOTE | ~2024-11-06 | XR_ITS ---
EXAMINATION: XR chest 1V portable DATE: 11/06/2024 10:53 INDICATION: Lethargy. TECHNIQUE: A single frontal view of the chest was obtained. COMPARISON: Chest 2 view 04/13/2024 FINDINGS: There is mild elevation of left hemidiaphragm. There are airspace and interstitial opacitie s in right mid and lower lung zones. No pleural effusion or pneumothorax. The heart size is normal. 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 IMPRESSION: 1. Airspace and interstitial opacities in right mid and lower lung zones, consistent with pneumonia v ersus mild pulmonary edema. Reviewed, dictated and finalized at location A. HER OF GIFTED STUDENTS IMPRESSION: 1. Airspace and interstitial opacities in right mid and lower lung zones, consi stent with pneumonia versus mild pulmonary edema.
--- NOTE | 2024-11-06 09:55 | ECG_ITS ---
Test Date: 2024-11-06 09:58:19 Measurements Intervals [place] Rate: 77 P: 0 [place]: 0 QRS: 29 QRSD: 96 T: 0 QT: 407 QTc: 463 Interpretive Statements ATRIAL FIBRILLATION NONSPECIFIC T-WAVE ABNORMALITY- INFERIOR LEADS BASELINE ARTIFACT- III, AVF, V3 ABNORMAL ECG Compared to ECG 04/13/2024 21:12:34 NO SIGNIFICANT CHANGE Electronically Signed On 11-06-2024 10:04:54 RATE REVIEWER by Servando Cortez D.O.
--- NOTE | 2024-11-06 10:12 | ED.WEAKNESS ---
HPI - Weakness General Chief complaint: Weakness <Emily Child PA-C - Last Filed: 11/06/24 18:24> Stated complaint: balance issues <Emily Child PA-C - Last Filed: 11/06/24 18:24> Time Seen by Provider: 11/06/24 09:42 <Emily Child PA-C - Last Filed: 11/06/24 18:24> History of Present Illness HPI Narrative: 84-year-old male with a history of AFib chronically anticoagulated on Xarelto, s/p CABG, CAD, hypertension, hypothyroidism, hyperlipidemia presents to the ED via EMS from home with and daughter at bedside to assist with history. States patient went to sleep in his normal state of health at 4:00 a.m.. He woke up at 6:00 a.m. states he was lying on his left side when he turned over, he began to feel very dizzy. He is having difficulty describing this dizziness. States he was calling for his for several hours but unfortunately she did not hear him until 8:00 a.m. Chyna she walked into his room she found him shaking his body and the rail of his bed. States she has never seen him do this before which concerned her so they brought him to the ED. Patient states he recalls shaking but is insure why he was doing it. No history of seizures. No incontinence. States every time he tries to sit up, he begins to shake. He has had chronic gait and balance issues for the past several months and follows with Neurology at [facility]. He was reportedly started on carbidopa levodopa due to concerns for Parkinson's in August but discontinue this in September after having GI issues with it. Patient also has slurred speech upon arrival to the ED the family states that patient gets slurred speech like this when he is tired since he only had 2 hours of sleep last night, they are attributing his lack of sleep to his slurred speech. Patient denies headache, vision changes, focal numbness or weakness, chest pain or shortness of breath, abdominal pain, N/V/D, dysuria or hematuria. He has had a mild cough otherwise no congestion or fevers. He has a right tympanostomy tube which was placed in August by ENT at [facility] to see if this would help with his dizziness, however it has reportedly not provided any improvement. <Emily Child PA-C - Last Filed: 11/06/24 18:24> Related Data Home medications: Home Medications ?Medication ?Instructions ?Recorded ?Confirmed ?Last Taken ?Type loratadine 10 mg tablet (Claritin) 10 mg PO DAILY 05/15/22 11/06/24 11/05/24 History rivaroxaban 20 mg tablet (Xarelto) 20 mg PO QPM 07/30/23 11/06/24 11/05/24 History simethicone 62.5 mg oral strips 1 strip PO BID 12/02/23 11/06/24 11/05/24 History (Gas-X) aspirin 81 mg chewable tablet 1 tablet PO DAILY 01/06/24 11/06/24 11/05/24 History docusate sodium 100 mg capsule 100 mg PO DAILY 03/25/24 11/06/24 11/05/24 History (Stool Softener) pyridoxine (vitamin B6) 100 mg 100 mg PO DAILY 03/25/24 11/06/24 11/05/24 History tablet <Emily Child PA-C - Last Filed: 11/06/24 18:24> Allergies/Adverse reactions: Allergies Allergy/AdvReac Type Severity Reaction Status Date / Time Hblgeiy-YUI-VaB Reductase Allergy Unknown Joint Pain Verified 11/06/24 10:13 Inhibitor (Tquyexe-Rmj-Dyt & MUSCLE Reductase Inhibitor) WEAKNESS diphenhydramine (From AdvReac Agitated Verified 11/06/24 10:13 Benadryl) halobetasol AdvReac Rash Verified 09/03/24 10:25 quetiapine (From Seroquel) AdvReac Agitated Verified 11/06/24 10:13 <Emily Child PA-C - Last Filed: 11/06/24 18:24> Review of Systems Review of Systems: All systems reviewed & are unremarkable except as noted in HPI and below <Emily Child PA-C - Last Filed: 11/06/24 18:24> PMFSH Past Medical History Medical History: Medical History Edema of scrotum Paroxysmal atrial fibrillation BMI 32.0-32.9,adult BMI greater than 30 Decreased ROM of left shoulder Screening for prostate cancer Elevated glucose BMI 31.0-31.9,adult Brain bleed Prostate CA Basal cell carcinoma Hepatitis B Prediabetes Hypothyroid Constipation GERD (gastroesophageal reflux disease) Hyperlipidemia Hypertension CAD (coronary artery disease) Myocardial infarct Seizures <Emily Child PA-C - Last Filed: 11/06/24 18:24> Surgical History Surgical History: Surgical History History of colostomy Status post Willy procedure 09/04/23 Extensive (2 1/2 hrs) adhesiolysis, sigmoidectomy with end descending colostomy and Willy procedure Hx of local excision of skin lesion H/O arthroscopy lt knee H/O prostatectomy Hx of colonoscopy 2012 - Dr. Yen Hx of CABG 11/2009 - triple bypass surgery at [facility] <Emily Child PA-C - Last Filed: 11/06/24 18:24> Family History Family History: Family History Father Malignant neoplasm of prostate Sibling Ovarian cancer Mother , epilepsy No problems noted. Sibling No problems noted. <Emily Child PA-C - Last Filed: 11/06/24 18:24> Social History Social History: Social History Smoking packs per day: 2 Smoking cigarettes per day: 40.0 Years smoked: 12 Smoking pack-years: 24.00 Smoking status: Former smoker Tobacco type: cigarettes Second hand tobacco smoke exposure: No Smoking end date: 09/23/70 Alcohol intake: never Alcohol use details: RARELY - 1/2 CASE BEER/YR Substance use: never Substance use type: does not use Do You Feel Safe in your Home?: Yes Lack of Transportation: No Lack of Food: Never True Current Housing: I Have Housing Concerned About Future Housing: No Difficulty Paying Gas/Electric Bills: No Difficulty Paying for Meds: No Currently Unemployed: No Education: High School Diploma/GED Difficulty w/ Childcare or Family Care: No Living arrangements: with family Occupation/Education: retired 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 EYES: PERRLA and EOMI. Minimal horizontal nystagmus bilaterally ENT: Nares clear, no rhinorrhea or epistaxis. Mucous membranes moist. Right tympanostomy tube present with tympanosclerosis NECK: Supple. CHEST: Clear to auscultation. No respiratory distress. HEART: Regular rate and rhythm. No murmur heard. Normal peripheral pulses. ABDOMEN: Soft, nontender, nondistended, normal active bowel sounds. Ostomy in place with no surrounding skin changes, no tenderness EXTREMITIES: Normal range of motion. No edema. SKIN: Chronic venous stasis changes to lower extremities however DP pulses are 2+ NEURO: No focal deficits. Alert and oriented x4. Answering all questions appropriately. Slurred speech is appreciated on exam, otherwise cranial nerves 2-12 are intact. Strength is 5/5 in BUE and BLE. Sensation intact throughout. Ataxia is appreciated with [id number] test. No pronator drift. <Emily Child PA-C - Last Filed: 11/06/24 18:24> Course BACON SKIN LIFTER/PA Physician Supervision I did review the chart and agree with the management <Jaylan Shipley MD - Last Filed: 11/06/24 17:01> Vital Signs Vital signs: Vital Signs Temperature 97 F L 11/06/24 09:40 Pulse Rate 78 11/06/24 09:40 Respiratory Rate 19 11/06/24 09:40 Blood Pressure 184/103 H 11/06/24 09:40 Pulse Oximetry 97 11/06/24 09:40 Oxygen Delivery Room Air 11/06/24 09:40 Temperature 97 F L 11/06/24 09:40 Pulse Rate 93 11/06/24 14:20 Respiratory Rate 16 11/06/24 14:20 Blood Pressure 174/89 H 11/06/24 14:20 Pulse Oximetry 98 11/06/24 14:20 Oxygen Delivery Room Air 11/06/24 09:40 <Emily Child PA-C - Last Filed: 11/06/24 18:24> Vital Signs Temperature 97 F L 11/06/24 09:40 Pulse Rate 78 11/06/24 09:40 Respiratory Rate 19 11/06/24 09:40 Blood Pressure 184/103 H 11/06/24 09:40 Pulse Oximetry 97 11/06/24 09:40 Oxygen Delivery Room Air 11/06/24 09:40 Temperature 97 F L 11/06/24 09:40 Pulse Rate 93 11/06/24 14:20 Respiratory Rate 16 11/06/24 14:20 Blood Pressure 174/89 H 11/06/24 14:20 Pulse Oximetry 98 11/06/24 14:20 Oxygen Delivery Room Air 11/06/24 09:40 <Jaylan Shipley MD - Last Filed: 11/06/24 17:01> MDM - Weakness MDM Narrative Medical decision making narrative: 84-year-old male presents to the emergency department for dizziness. See HPI for further history. Triage vitals with elevated blood pressure, otherwise unremarkable. Exam is significant for the above. Lab work with mild elevation in leukocytosis of 10.3, chronic anemia with hemoglobin of 13.5. Chemistries with mild elevation in BUN of 29, otherwise unremarkable. Glucose normal. BNP is elevated to 1310, patient does not appear to be volume overloaded. Last echo reviewed shows agreed to diastolic dysfunction. UA with RBCs, no WBCs or UTI. Viral swabs are negative. EKG with AFib with a rate of 77 ppm, nonspecific T-wave abnormality, no ischemic changes. Troponin is elevated at 0.237. Patient denies chest pain or shortness of breath. May be secondary to CHF. Will trend. Chest x-ray with airspace and interstitial opacities in the right mid and lower lung zones consistent with pneumonia versus mild pulmonary edema. IMPRESSION: 1. 50% stenosis of the right carotid bulb relative to normal distal artery lumen diameter (NASCET criteria). 2. Atherosclerotic plaque with 0% stenosis of the left carotid bulb relative to normal distal artery lumen diameter. 3. Left vertebral artery is dominant with potentially minimally significant stenosis at the proximal most and diminutive distal most right vertebral artery. Otherwise unremarkable cerebral CT angiogram with no other hemodynamically significant stenosis, aneurysm or thrombosis. 4. Normal aging brain. No acute intracranial process or abnormally enhancing brain lesions. 5. Mild pulmonary edema in the visualized upper lungs. Pt and family updated on results. Given reported cough, will treat for PNA with azithromycin and Rocephin. He was also given Lasix for pulmonary edema. Repeat troponin is flat. I did consult patient's Neurology team at [facility] and spoke with, Dr. Ramsay, who reviewed the patient's chart in confirms that the patient's dizziness and ataxia are chronic. She reports the patient had an MRI of the brain on 10/29/2024 which showed one area of abnormality which was chronic in nature and was otherwise unremarkable. He is scheduled to have an outpatient follow-up MRI in the next couple of months. She agrees that his symptoms are not consistent with an acute neurologic disease. I suspect the reported shaking is due to myoclonic jerks. Agrees the patient can stay in our hospital for tx of PNA and CHF, and if anything changes neurologically, to contact [facility]. Discuss the case with our hospitalist BACON SKIN LIFTER, Camelia, who agrees to plan for admission. <Emily Child PA-C - Last Filed: 11/06/24 18:24> Lab Data Result diagrams: 11/06/24 10:27 11/06/24 10:27 <Emily Child PA-C - Last Filed: 11/06/24 18:24> Labs: Lab Results 11/06/24 11/06/24 11/06/24 Range/Units 10:22 10:26 10:27 WBC 10.3 H (4.5-10.0) K/mm3 RBC 4.35 L (4.6-6.20) M/mm3 Hgb 13.5 L (14.0-18.0) g/dL Hct 41.6 L (42.0-52.0) % MCV 95.6 (80-100) fl MCH 31.0 (26-34) pg MCHC 32.5 (32-36) g/dl RDW 12.7 (11.5-14.5) % Plt Count 195 (150-375) k/mm3 MPV 11.3 H (7.4-10.4) fl Immature Gran % (Auto) 0.4 (0-0.5) % Neut % (Auto) 84.2 H (45.5-73.1) % Lymph % (Auto) 8.2 L (18.3-44.2) % [place] % (Auto) 5.8 (2.6-8.5) % Eos % (Auto) 1.1 (0-4.4) % Baso % (Auto) 0.3 (0.2-1.2) % Lymph # (Auto) 0.85 L (0.9-3.2) K/mm3 [place] # (Auto) 0.6 (0.1-0.6) K/mm3 Eos # (Auto) 0.1 (0-0.3) K/mm3 Baso # (Auto) 0.0 (0.0-0.1) K/mm3 Abs Immat Gran (auto) 0.04 H (0.00-0.031) K/mm3 Absolute Neuts (auto) 8.7 H (1.3-6.7) K/mm3 Absolute Nucleated RBC 0.000 (0.0-0.012) K/mm3 Nucleated RBC % 0.0 (0.0-0.2) % PT 16.5 H (11.1-14.7) Seconds INR 1.3 APTT 31.6 (22.3-36.8) Seconds Sodium 142 (137-145) mmol/L Potassium 3.7 (3.4-5.0) mmol/L Chloride 102 (98-107) mmol/L Carbon Dioxide 27 (22-30) mmol/L Anion Gap 13 H (4-12) mmol/L BUN 29 H (9-20) mg/dL Creatinine 0.92 (0.7-1.3) mg/dL Estim Creat Clear Calc 58 ml/min Estimated GFR > 60 (59 - ) Glucose 143 H (65-110) mg/dL POC Capillary Glucose 143 H (65-105) mg/dl Lactic Acid (0.7-2.0) mmol/L Calcium 9.1 (8.4-10.2) mg/dL Total Bilirubin 0.6 (0.2-1.3) mg/dL AST 41 (17-59) U/L ALT 33 (6-50) U/L Alkaline Phosphatase 96 (38-126) U/L Troponin I 0.237 H* (0.000-0.034) ng/mL NT-Pro-B Natriuret Pep 2310 H (19.9-100) pg/mL Total Protein 8.0 (6.3-8.2) g/dL Albumin 4.4 (3.5-5.1) g/dL Urine Color (Yellow) Urine Appearance (Clear) Urine pH (5.0-9.0) Ur Specific [place] (1.001-1.035) Urine Protein (Negative) mg/dL Urine Glucose (UA) (Negative) mg/dL Urine Ketones (Negative) mg/dL Ur Blood (Man) (Negative) Urine Nitrate (Negative) Urine Bilirubin (Negative) Urine Urobilinogen (<2.0) mg/dL Add Ur Microanalysis Leukocyte Esterase Rfl (Negative) MOLLY/UL Urine RBC (0-2) /hpf Urine WBC (0-3) /hpf Ur Squamous Epith Cells (Few) /hpf Urine Bacteria /hpf Urine Casts Influenza A (RT-PCR) Negative (Negative) Influenza B (RT-PCR) Negative (Negative) RSV (RT-PCR) Negative (Negative) SARS-CoV-2 RNA (RT-PCR) Negative (Negative) 11/06/24 11/06/24 Range/Units 10:47 14:06 WBC (4.5-10.0) K/mm3 RBC (4.6-6.20) M/mm3 Hgb (14.0-18.0) g/dL Hct (42.0-52.0) % MCV (80-100) fl MCH (26-34) pg MCHC (32-36) g/dl RDW (11.5-14.5) % Plt Count (150-375) k/mm3 MPV (7.4-10.4) fl Immature Gran % (Auto) (0-0.5) % Neut % (Auto) (45.5-73.1) % Lymph % (Auto) (18.3-44.2) % [place] % (Auto) (2.6-8.5) % Eos % (Auto) (0-4.4) % Baso % (Auto) (0.2-1.2) % Lymph # (Auto) (0.9-3.2) K/mm3 [place] # (Auto) (0.1-0.6) K/mm3 Eos # (Auto) (0-0.3) K/mm3 Baso # (Auto) (0.0-0.1) K/mm3 Abs Immat Gran (auto) (0.00-0.031) K/mm3 Absolute Neuts (auto) (1.3-6.7) K/mm3 Absolute Nucleated RBC (0.0-0.012) K/mm3 Nucleated RBC % (0.0-0.2) % PT (11.1-14.7) Seconds INR APTT (22.3-36.8) Seconds Sodium (137-145) mmol/L Potassium (3.4-5.0) mmol/L Chloride (98-107) mmol/L Carbon Dioxide (22-30) mmol/L Anion Gap (4-12) mmol/L BUN (9-20) mg/dL Creatinine (0.7-1.3) mg/dL Estim Creat Clear Calc ml/min Estimated GFR (59 - ) Glucose (65-110) mg/dL POC Capillary Glucose (65-105) mg/dl Lactic Acid 2.2 H (0.7-2.0) mmol/L Calcium (8.4-10.2) mg/dL Total Bilirubin (0.2-1.3) mg/dL AST (17-59) U/L ALT (6-50) U/L Alkaline Phosphatase (38-126) U/L Troponin I 0.207 H* (0.000-0.034) ng/mL NT-Pro-B Natriuret Pep (19.9-100) pg/mL Total Protein (6.3-8.2) g/dL Albumin (3.5-5.1) g/dL Urine Color Yellow (Yellow) Urine Appearance Clear (Clear) Urine pH 7.0 (5.0-9.0) Ur Specific [place] 1.016 (1.001-1.035) Urine Protein 2+ H (Negative) mg/dL Urine Glucose (UA) Trace H (Negative) mg/dL Urine Ketones Negative (Negative) mg/dL Ur Blood (Man) Negative (Negative) Urine Nitrate Negative (Negative) Urine Bilirubin Negative (Negative) Urine Urobilinogen 0.2 (<2.0) mg/dL Add Ur Microanalysis Reviewed Leukocyte Esterase Rfl Negative (Negative) MOLLY/UL Urine RBC 11-20 H (0-2) /hpf Urine WBC 0-5 (0-3) /hpf Ur Squamous Epith Cells None seen (Few) /hpf Urine Bacteria None seen /hpf Urine Casts 0-2 Influenza A (RT-PCR) (Negative) Influenza B (RT-PCR) (Negative) RSV (RT-PCR) (Negative) SARS-CoV-2 RNA (RT-PCR) (Negative) <Emily Child PA-C - Last Filed: 11/06/24 18:24> Lab Results 11/06/24 11/06/24 11/06/24 Range/Units 10:22 10:26 10:27 WBC 10.3 H (4.5-10.0) K/mm3 RBC 4.35 L (4.6-6.20) M/mm3 Hgb 13.5 L (14.0-18.0) g/dL Hct 41.6 L (42.0-52.0) % MCV 95.6 (80-100) fl MCH 31.0 (26-34) pg MCHC 32.5 (32-36) g/dl RDW 12.7 (11.5-14.5) % Plt Count 195 (150-375) k/mm3 MPV 11.3 H (7.4-10.4) fl Immature Gran % (Auto) 0.4 (0-0.5) % Neut % (Auto) 84.2 H (45.5-73.1) % Lymph % (Auto) 8.2 L (18.3-44.2) % [place] % (Auto) 5.8 (2.6-8.5) % Eos % (Auto) 1.1 (0-4.4) % Baso % (Auto) 0.3 (0.2-1.2) % Lymph # (Auto) 0.85 L (0.9-3.2) K/mm3 [place] # (Auto) 0.6 (0.1-0.6) K/mm3 Eos # (Auto) 0.1 (0-0.3) K/mm3 Baso # (Auto) 0.0 (0.0-0.1) K/mm3 Abs Immat Gran (auto) 0.04 H (0.00-0.031) K/mm3 Absolute Neuts (auto) 8.7 H (1.3-6.7) K/mm3 Absolute Nucleated RBC 0.000 (0.0-0.012) K/mm3 Nucleated RBC % 0.0 (0.0-0.2) % PT 16.5 H (11.1-14.7) Seconds INR 1.3 APTT 31.6 (22.3-36.8) Seconds Sodium 142 (137-145) mmol/L Potassium 3.7 (3.4-5.0) mmol/L Chloride 102 (98-107) mmol/L Carbon Dioxide 27 (22-30) mmol/L Anion Gap 13 H (4-12) mmol/L BUN 29 H (9-20) mg/dL Creatinine 0.92 (0.7-1.3) mg/dL Estim Creat Clear Calc 58 ml/min Estimated GFR > 60 (59 - ) Glucose 143 H (65-110) mg/dL POC Capillary Glucose 143 H (65-105) mg/dl Lactic Acid (0.7-2.0) mmol/L Calcium 9.1 (8.4-10.2) mg/dL Total Bilirubin 0.6 (0.2-1.3) mg/dL AST 41 (17-59) U/L ALT 33 (6-50) U/L Alkaline Phosphatase 96 (38-126) U/L Troponin I 0.237 H* (0.000-0.034) ng/mL NT-Pro-B Natriuret Pep 2310 H (19.9-100) pg/mL Total Protein 8.0 (6.3-8.2) g/dL Albumin 4.4 (3.5-5.1) g/dL Urine Color (Yellow) Urine Appearance (Clear) Urine pH (5.0-9.0) Ur Specific [place] (1.001-1.035) Urine Protein (Negative) mg/dL Urine Glucose (UA) (Negative) mg/dL Urine Ketones (Negative) mg/dL Ur Blood (Man) (Negative) Urine Nitrate (Negative) Urine Bilirubin (Negative) Urine Urobilinogen (<2.0) mg/dL Add Ur Microanalysis Leukocyte Esterase Rfl (Negative) MOLLY/UL Urine RBC (0-2) /hpf Urine WBC (0-3) /hpf Ur Squamous Epith Cells (Few) /hpf Urine Bacteria /hpf Urine Casts Influenza A (RT-PCR) Negative (Negative) Influenza B (RT-PCR) Negative (Negative) RSV (RT-PCR) Negative (Negative) SARS-CoV-2 RNA (RT-PCR) Negative (Negative) 11/06/24 11/06/24 Range/Units 10:47 14:06 WBC (4.5-10.0) K/mm3 RBC (4.6-6.20) M/mm3 Hgb (14.0-18.0) g/dL Hct (42.0-52.0) % MCV (80-100) fl MCH (26-34) pg MCHC (32-36) g/dl RDW (11.5-14.5) % Plt Count (150-375) k/mm3 MPV (7.4-10.4) fl Immature Gran % (Auto) (0-0.5) % Neut % (Auto) (45.5-73.1) % Lymph % (Auto) (18.3-44.2) % [place] % (Auto) (2.6-8.5) % Eos % (Auto) (0-4.4) % Baso % (Auto) (0.2-1.2) % Lymph # (Auto) (0.9-3.2) K/mm3 [place] # (Auto) (0.1-0.6) K/mm3 Eos # (Auto) (0-0.3) K/mm3 Baso # (Auto) (0.0-0.1) K/mm3 Abs Immat Gran (auto) (0.00-0.031) K/mm3 Absolute Neuts (auto) (1.3-6.7) K/mm3 Absolute Nucleated RBC (0.0-0.012) K/mm3 Nucleated RBC % (0.0-0.2) % PT (11.1-14.7) Seconds INR APTT (22.3-36.8) Seconds Sodium (137-145) mmol/L Potassium (3.4-5.0) mmol/L Chloride (98-107) mmol/L Carbon Dioxide (22-30) mmol/L Anion Gap (4-12) mmol/L BUN (9-20) mg/dL Creatinine (0.7-1.3) mg/dL Estim Creat Clear Calc ml/min Estimated GFR (59 - ) Glucose (65-110) mg/dL POC Capillary Glucose (65-105) mg/dl Lactic Acid 2.2 H (0.7-2.0) mmol/L Calcium (8.4-10.2) mg/dL Total Bilirubin (0.2-1.3) mg/dL AST (17-59) U/L ALT (6-50) U/L Alkaline Phosphatase (38-126) U/L Troponin I 0.207 H* (0.000-0.034) ng/mL NT-Pro-B Natriuret Pep (19.9-100) pg/mL Total Protein (6.3-8.2) g/dL Albumin (3.5-5.1) g/dL Urine Color Yellow (Yellow) Urine Appearance Clear (Clear) Urine pH 7.0 (5.0-9.0) Ur Specific [place] 1.016 (1.001-1.035) Urine Protein 2+ H (Negative) mg/dL Urine Glucose (UA) Trace H (Negative) mg/dL Urine Ketones Negative (Negative) mg/dL Ur Blood (Man) Negative (Negative) Urine Nitrate Negative (Negative) Urine Bilirubin Negative (Negative) Urine Urobilinogen 0.2 (<2.0) mg/dL Add Ur Microanalysis Reviewed Leukocyte Esterase Rfl Negative (Negative) MOLLY/UL Urine RBC 11-20 H (0-2) /hpf Urine WBC 0-5 (0-3) /hpf Ur Squamous Epith Cells None seen (Few) /hpf Urine Bacteria None seen /hpf Urine Casts 0-2 Influenza A (RT-PCR) (Negative) Influenza B (RT-PCR) (Negative) RSV (RT-PCR) (Negative) SARS-CoV-2 RNA (RT-PCR) (Negative) <Jaylan Shipley MD - Last Filed: 11/06/24 17:01> Discharge Plan Discharge Clinical Impression: Elevated troponin CAP (community acquired pneumonia) Qualifiers: Laterality: right Lung location: middle lobe of lung Qualified Code(s): J18.9 - Pneumonia, unspecified organism Pulmonary edema Qualifiers: Chronicity: acute Qualified Code(s): J81.0 - Acute pulmonary edema <Emily Child PA-C - Last Filed: 11/06/24 18:24> Patient Disposition: Still a Patient <Emily Child PA-C - Last Filed: 11/06/24 18:24> Condition: Stable <Emily Child PA-C - Last Filed: 11/06/24 18:24>
--- OUTSIDE RECORDS SUMMARY | 2024-11-06 10:17 | XMS_ITS | Encounter Summary ---
Author Organization [facility] Healthcare Address [address] [place] [address] Care Team Providers Care [employer] Rep Name Role Phone Demond Stark MD Primary Care Provider Reason for Visit * Reason Onset Date Comments cardiac clearance 11/05/2024 samples 11/05/2024 Encounter Details Date Type Department Care Team (Late st Contact Info) Description 11/05/[address] [facility] Medical Group Cardiology [address] [facility] [address] [place] [address] Mando Luna MD [facility] [address] cardiac clearance; samples Social History Tobacco Use Types Packs/Day Years Used Date Smoking Tobacco: Former Cigarettes Q uit: 1958 Smokeless Tobacco: Former Alcohol Use Standard Drinks/Week Comments Yes 0 (1 standard drink = 0.6 oz pur e alcohol) very rarely AUDIT-C Answer Date Recorded Q1: How often do you have a drink containing alcohol? Monthly or less 09/22/2024 Q2: How many drinks containi ng alcohol do you have on a typical day when you are drinking? Patient does not drink Q3: How often do you have si x or more drinks on one occasion? Never 09/22/2024 Personal Safety Answer Date Recorded Have you ever been in or are you currently in a harmful physical or emotional relationship or is someone making you feel afraid or unsafe? Denies 09/22/2024 Sex and Gender Information Value Date Recorded Sex Assigned at Not on file Legal Sex Male 8:49 AM CONSOLE MANAGER Gender Identity Not on file Sexual Orientation Not on file documented as of this encounter Miscellaneous Notes * Telephone Encounter - Nilsa Watt RN - 11/05/2024 1:36 PM CONSOLE MANAGER Told pt he was fine to hold aspirin for 2 days as well and provided him with samples. OLE MANAGER * Telephone Encounter - Rosana Anand - 11/05/2024 12:30 PM CST Pt will be having some teeth extracted. MAF gave the okay for the patient to be off of his xarelto for 48 hours at his last OV on 08/19/2024. Pt would like to know if he should stop taking aspirin 81mg as well. Please advise. Patient requesting samples of rivaroxaban (Xarelto) 20 mg. Contact [phone] OLE MANAGER documented in this encounter Plan of Treatment Not on file documented as of this encounter Visit Diagnoses Not on filedocumented in this encounter Care Teams [employer] Rep Relationship Specialty Start Date End Date Demond Stark MD PCP - General 07/23/11 documented as of this encounter
--- OUTSIDE RECORDS SUMMARY | 2024-11-06 10:17 | XMS_ITS | Encounter Summary ---
Author Organization [facility] Address [address] [place] [address] Care Team Providers Care Dial Printer Name Role Phone Unavailable Primary Care Provider Unavailabl e Encounter Details Date Type Department Care Team (Late st Contact Info) Description 10/11/2023 Lab Requisition [facility] Laboratory Services [address] [place] [address] [place] [address] [place] [address] Social History Tobacco Use Types Packs/Day Years Used Date Smoking Tobacco: Never Assessed Sex and Gender Information Value Date Recorded Sex Assigned at Not on file Legal Sex Male 9:18 AM BIOINFORMATICS ENGINEER Gender Identity Not on file Sexual Orientation Not on file documented as of this encounter Plan of Treatment Not on file documented as of this encounter Procedures Procedure Name Priority Date/Time Associated Diagnosis Comments CBC WITH DIFFERENTIAL Routine 10/11/2023 3:30 AM BIOINFORMATICS ENGINEER TRIGLYCERIDE Routine 10/11/2023 3:30 AM BIOINFORMATICS ENGINEER MAGNESIUM LEVEL Routine 10/11/2023 3:30 AM BIOINFORMATICS ENGINEER RENAL FUNCTION PANEL Routine 10/11/2023 3:30 AM BIOINFORMATICS ENGINEER documented in this encounter Results * (ABNORMAL) TRIGLYCERIDE (10/11/2023 3:30 AM BIOINFORMATICS ENGINEER) TRIGLYCERIDE 192(H) <150 mg/dL 10/11/2023 6:28 AM BIOINFORMATICS ENGINEER [facility] LABORATORY SERVICES [facility] Blood 10/11/2023 3:30 AM BIOINFORMATICS ENGINEER 10/11/2023 5:43 AM BIOINFORMATICS ENGINEER Narrative [facility] XD Nutrition [facility] - 10/11/2023 6:28 AM BIOINFORMATICS ENGINEER TRIGLYCERIDES mg/dL Normal < 150 Borderline High 150 - 199 High 200 - 499 Very High >= 500 Based on AHA/NCEP Guidelines. Erik Chairez MD CHEMISTRY ORDERABLES Final Resul t Performing Organization Address City/[facility]/ZIP Co de Phone Number [facility] CLIA# [id number] [place] [address] * MAGNESIUM LEVEL (10/11/2023 3:30 AM BIOINFORMATICS ENGINEER) MAGNESIUM 2.2 1.6 - 2.6 mg/dL 10/11/2023 6:28 AM [facility] Blood 10/11/2023 3:30 AM BIOINFORMATICS ENGINEER 10/11/2023 5:43 AM BIOINFORMATICS ENGINEER Erik Chairez MD CHEMISTRY ORDERABLES Final Resul t Performing Organization Address City/[facility]/ZIP Co de Phone Number [facility] CLIA# [id number] [place] [address] * (ABNORMAL) CBC WITH DIFFERENTIAL (10/11/2023 3:30 AM BIOINFORMATICS ENGINEER) WBC 8.8 4.5 - 10.5 K/uL 10/11/2023 6:05 AM [facility] XD Nutrition [facility] RBC 3.43(L) 4.50 - 5.40 M/uL 10/11/2023 6:05 AM [facility] XD Nutrition [facility] HEMOGLOBIN 10.5(L) 13.6 - 16.5 g/dL 10/11/2023 6:05 AM [facility] HEMATOCRIT 32.7(L) 40.0 - 48.0 % 10/11/2023 6:05 AM [facility] MCV 95.4 82.0 - 99.0 fL 10/11/2023 6:05 AM [facility] MCH 30.7 27.8 - 34.5 pg 10/11/2023 6:05 AM [facility] LABORATORY [facility] MCHC 32.2(L) 32.5 - 35.5 g/dL 10/11/2023 6:05 AM [facility] LABORATORY [facility] RDW 18.7(H) 11.5 - 14.5 % 10/11/2023 6:05 AM [facility] LABORATORY [facility] PLATELETS 218 160 - 420 K/uL 10/11/2023 6:05 AM [facility] LABORAT[facility] MPV 9.3 8.7 - 12.7 fL 10/11/2023 6:05 AM BIOINFORMATICS ENGINEER [facility] NEUTROPHILS 67 % 10/11/2023 6:05 AM BIOINFORMATICS ENGINEER [facility] LYMPHOCYTES 18 % 10/11/2023 6:05 AM BIOINFORMATICS ENGINEER [facility] MONOCYTES 7 % 10/11/2023 6:05 AM BIOINFORMATICS ENGINEER [facility] LABOR[facility] EOSINOPHILS 7 % 10/11/2023 6:05 AM [facility] LABORAT[facility] BASOPHILS 1 % 10/11/2023 6:05 AM BIOINFORMATICS ENGINEER [facility] NEUTROPHIL ABSOLUTE 5.90 1.90 - 7.00 K/uL 10/11/2023 6:05 AM [facility] LABOR[facility] LYMPHOCYTE ABSOLUTE 1.60 0.70 - 4.50 K/uL 10/11/2023 6:05 AM [facility] LABORAT[facility] MONOCYTE ABSOLUTE 0.60 0.10 - 1.30 K/uL 10/11/2023 6:05 AM [facility] LABORAT[facility] EOSINOPHIL ABSOLUTE 0.60 0.00 - 0.70 K/uL 10/11/2023 6:05 AM BIOINFORMATICS ENGINEER [facility] BASOPHILS ABSOLUTE 0.10 0.00 - 0.20 K/uL 10/11/2023 6:05 AM [facility] LABORAT[facility] Blood 10/11/2023 3:30 AM BIOINFORMATICS ENGINEER 10/11/2023 5:43 AM BIOINFORMATICS ENGINEER us Erik Chairez MD HEMATOLOGY ORDERABLES Final Resu lt [facility] CLIA# [id number] [place] [address] * (ABNORMAL) RENAL FUNCTION PANEL (10/11/2023 3:30 AM BIOINFORMATICS ENGINEER) SODIUM 145 136 - 145 mmol/L 10/11/2023 6:28 AM [facility] XD Nutrition [facility] POTASSIUM 4.0 3.4 - 5.1 mmol/L 10/11/2023 6:28 AM [facility] CHLORIDE 106 98 - 107 mmol/L 10/11/2023 6:28 AM [facility] CO2 26 22 - 29 mmol/L 10/11/2023 6:28 AM [facility] CALCIUM 9.3 8.6 - 10.4 mg/dL 10/11/2023 6:28 AM [facility] BUN 38(H) 6 - 20 mg/dL 10/11/2023 6:28 AM [facility] CREATININE 1.38(H) 0.67 - 1.17 mg/dL 10/11/2023 6:28 AM [facility] Comment:The GFR result is no t clinically significant on patients <18 or >70 years of age. GLUCOSE 85 74 - 99 mg/dL 10/11/2023 6:28 AM [facility] ALBUMIN 3.4(L) 3.5 - 5.2 g/dL 10/11/2023 6:28 AM [facility] PHOSPHORUS 3.9 2.5 - 4.5 mg/dL 10/11/2023 6:28 AM [facility] GFR 51 mL/min/1.7 3 sq meter 10/11/2023 6:28 AM [facility] Comment:eGFR calculated with 2020 CKD-EPI equation. Vegetarian diet, extremely high or low muscle mass, and may affect results. Cystatin C with Glomerular Filtration Rate is a suitable alternative for these patients. 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
--- OUTSIDE RECORDS SUMMARY | 2024-11-06 10:17 | XMS_ITS | Encounter Summary ---
Author Organization [facility] Address [facility] [facility] [place] [address] Care Team Providers Care Equipment Washer Name Role Phone Demond Stark MD Primary Care Provider [phone] Reason for Referral * Radiology Services (Routine) - Open Specialty Diagnoses / Procedures Referred By Rosa kruger Referred To Contact MRI Diagnoses Cerebrovascular accident (CVA), unspecified mechanism (HCC) Type 2 diabetes mellitus with other specified complication, unspecified whether exterminator helper termite insulin use (HCC) Procedures MRI Brain Wwo Contrast Natalia Vann DO [address] [place] [address] Referral ID Status Reason Start Date Expiration Date Visits Re quested Visits Authorized [id number] Open 05/07/2025 05/07/2026 1 1 [employer]CHO[employer] LIAISON OFFICER Encounter Details Date Type Department Care Team (Late st Contact Info) Description 11/02/2024 Orders Only [facility] - Neurology [address] [facility] [place] [address] Alberto Jeffers MD [address] [facility] [place] [address] Falls ; Cerebrovascular accident (CVA), unspecified mechanism (HCC); Type 2 diabetes mellitus with other specified complication, unspecified whether exterminator helper termite insulin use (HCC) Social History Tobacco Use Types Packs/Day Years Used Date Smoking Tobacco: Former Cigarettes Q uit: 09/23/1969 Smokeless Tobacco: Never Alcohol Use Standard Drinks/Week Comments Yes 0 (1 standard drink = 0.6 oz pur e alcohol) Sex and Gender Information Value Date Recorded Sex Assigned at Not on file Gender Identity Not on file Sexual Orientation Not on file documented as of this encounter Plan of Treatment Upcoming Encounters Date Type Department Care Team (Late st Contact Info) Description 01/01/2025 9:30 AM CDT Office Visit [facility] - Neurology [address] [facility] [place] [address] Alberto Jeffers MD [address] [facility] [place] [address] Scheduled Orders Name Type Priority Associated Diagnoses Orde r Schedule HEMOGLOBIN A1C Lab Routine Cerebrovascular accident (CVA), unspecified mechanism (HCC) Type 2 diabetes mellitus with other specified complication, unspecified whether exterminator helper termite insulin use (HCC) 1 Occurrences starting 11/02/2024 until 11/27/2025 LIPID PROFILE Lab Routine Cerebrovascular accident (CVA), unspecified mechanism (HCC) Type 2 diabetes mellitus with other specified complication, unspecified whether mcc insulin use (HCC) 1 Occurrences starting 11/02/2024 until 11/27/2025 MRI Brain Wwo Contrast Imaging Routine Cerebrovascular accident (CVA), unspecified mechanism (HCC) Type 2 diabetes mellitus with other specified complication, unspecified whether mcc insulin use (HCC) Expected: 05/07/2025 (Approximate), Expires: 11/02/2025 documented as of this encounter Visit Diagnoses Diagnosis Falls- Primary Unspecified fall Cerebrovascular accident (CVA), unspecified mechanism (HCC) Type 2 diabetes mellitus with other specified complication, unspecified whether mcc insulin use (HCC) documented in this encounter Care Teams Equipment Washer Relationship Specialty Start Date End Date Demond Stark MD [address] [place] [id number] PCP - General 10/03/15 documented as of this encounter
--- OUTSIDE RECORDS SUMMARY | 2024-11-06 10:17 | XMS_ITS | Encounter Summary ---
Author Organization [facility] Address [address] [place] [address] Care Team Providers Care Director Of Learning Name Role Phone Unavailable Primary Care Provider Unavailabl e Encounter Details Date Type Department Care Team (Late st Contact Info) Description 10/10/2023 Lab Requisition [facility] Laboratory Services [address] [place] [address] [place] [address] [place] [address] Social History Tobacco Use Types Packs/Day Years Used Date Smoking Tobacco: Never Assessed Sex and Gender Information Value Date Recorded Sex Assigned at Not on file Legal Sex Male 9:18 AM HOUSEKEEPER Gender Identity Not on file Sexual Orientation Not on file documented as of this encounter Plan of Treatment Not on file documented as of this encounter Procedures Procedure Name Priority Date/Time Associated Diagnosis Comments CBC WITH DIFFERENTIAL Routine 10/10/2023 3:30 AM HOUSEKEEPER PTT Routine 10/10/2023 3:30 AM HOUSEKEEPER PROTIME-INR Routine 10/10/2023 3:30 AM HOUSEKEEPER PREALBUMIN Routine 10/10/2023 3:30 AM HOUSEKEEPER COMPREHENSIVE METABOLIC PANEL Routine 10/10/2023 3:30 AM HOUSEKEEPER documented in this encounter Results * PTT (10/10/2023 3:30 AM HOUSEKEEPER) PTT 23.4 23.1 - 37.1 seconds 10/10/2023 10:14 AM HOUSEKEEPER [facility] Blood Collection / Unknown 10/10/2023 3:30 AM HOUSEKEEPER 10/10/2023 9:51 AM HOUSEKEEPER Erik Chairez MD HEMATOLOGY ORDERABLES Final Resu lt [facility] CLIA# [id number] [place] [address] * (ABNORMAL) PROTIME-INR (10/10/2023 3:30 AM HOUSEKEEPER) PROTIME 15.0(H) 11.5 - 14.7 Seconds 10/10/2023 10:14 AM HOUSEKEEPER [facility] LABORATORY [facility] INR 1.2(H) 0.9 - 1.1 10/10/2023 10:14 AM HOUSEKEEPER [facility] LABORAT[facility] Blood Collection / Unknown 10/10/2023 3:30 AM HOUSEKEEPER 10/10/2023 9:51 AM HOUSEKEEPER Erik Chairez MD HEMATOLOGY ORDERABLES Final Resu lt [facility] [employer] [facility] CLIA# [id number] [place] [address] * PREALBUMIN (10/10/2023 3:30 AM HOUSEKEEPER) PREALBUMIN 23 20 - 40 mg/dL 10/10/2023 2:24 PM HOUSEKEEPER [facility] LABORATORY [facility] Blood Collection / Unknown 10/10/2023 3:30 AM HOUSEKEEPER 10/10/2023 9:51 AM HOUSEKEEPER Erik Chairez MD CHEMISTRY ORDERABLES Final Resul t [facility] [employer] [facility] CLIA# [id number] [address] [place] [address] * (ABNORMAL) CBC WITH DIFFERENTIAL (10/10/2023 3:30 AM HOUSEKEEPER) [facility] WBC 10.1 4.5 - 10.5 K/uL 10/10/2023 11:06 AM [facility] RBC 3.85(L) 4.50 - 5.40 M/uL 10/10/2023 11:06 AM [facility] HEMOGLOBIN 11.6(L) 13.6 - 16.5 g/dL 10/10/2023 11:06 AM [facility] [employer] [facility] HEMATOCRIT 36.6(L) 40.0 - 48.0 % 10/10/2023 11:06 AM [facility] [employer] [facility] MCV 95.2 82.0 - 99.0 fL 10/10/2023 11:06 AM [facility] [employer] [facility] MCH 30.1 27.8 - 34.5 pg 10/10/2023 11:06 AM [facility] [employer] [facility] MCHC 31.6(L) 32.5 - 35.5 g/dL 10/10/2023 11:06 AM [facility] [employer] [facility] RDW 19.2(H) 11.5 - 14.5 % 10/10/2023 11:06 AM [facility] [employer] [facility] PLATELETS 250 160 - 420 K/uL 10/10/2023 11:06 AM [facility] [employer] [facility] MPV 9.8 8.7 - 12.7 fL 10/10/2023 11:06 AM [facility] [employer] [facility] NEUTROPHILS 72 % 10/10/2023 11:06 AM [facility] [employer] [facility] LYMPHOCYTES 15 % 10/10/2023 11:06 AM HOUSEKEEPER [facility] LABORATORY [facility] MONOCYTES 7 % 10/10/2023 11:06 AM HOUSEKEEPER [facility] LABORATORY [facility] EOSINOPHILS 5 % 10/10/2023 11:06 AM HOUSEKEEPER [facility] LABORATORY [facility] BASOPHILS 0 % 10/10/2023 11:06 AM [facility] LABORATORY [facility] NEUTROPHIL ABSOLUTE 7.20(H) 1.90 - 7.00 K/uL 10/10/2023 11:06 AM [facility] [employer] [facility] LYMPHOCYTE ABSOLUTE 1.50 0.70 - 4.50 K/uL 10/10/2023 11:06 AM HOUSEKEEPER [facility] LABORATORY [facility] MONOCYTE ABSOLUTE 0.70 0.10 - 1.30 K/uL 10/10/2023 11:06 AM HOUSEKEEPER [facility] LABORATORY [facility] EOSINOPHIL ABSOLUTE 0.50 0.00 - 0.70 K/uL 10/10/2023 11:06 AM HOUSEKEEPER [facility] LABORAT[facility] BASOPHILS ABSOLUTE 0.00 0.00 - 0.20 K/uL 10/10/2023 11:06 AM HOUSEKEEPER [facility] [employer] [facility] Blood Collection / Unknown 10/10/2023 3:30 AM HOUSEKEEPER 10/10/2023 9:51 AM HOUSEKEEPER us Erik Chairez MD HEMATOLOGY ORDERABLES Final Resu lt [facility] CLIA# [id number] [address] [place] [address] * (ABNORMAL) COMPREHENSIVE METABOLIC PANEL (10/10/2023 3:30 AM HOUSEKEEPER) SODIUM 142 136 - 145 mmol/L 10/10/2023 10:49 AM [facility] [employer] [facility] POTASSIUM 4.1 3.4 - 5.1 mmol/L 10/10/2023 10:49 AM [facility] [employer] [facility] CHLORIDE 104 98 - 107 mmol/L 10/10/2023 10:49 AM [facility] [employer] [facility] CO2 23 22 - 29 mmol/L 10/10/2023 10:49 AM [facility] [employer] [facility] CALCIUM 9.4 8.6 - 10.4 mg/dL 10/10/2023 10:49 AM [facility] [employer] [facility] BUN 34(H) 6 - 20 mg/dL 10/10/2023 10:49 AM [facility] [employer] [facility] CREATININE 1.24(H) 0.67 - 1.17 mg/dL 10/10/2023 10:49 AM [facility] LABORATORY [facility] Comment:The GFR result is no t clinically significant on patients <18 or >70 years of age. GLUCOSE 91 74 - 99 mg/dL 10/10/2023 10:49 AM [facility] TOTAL PROTEIN 7.4 6.3 - 8.7 g/dL 10/10/2023 10:49 AM [facility] ALBUMIN 3.6 3.5 - 5.2 g/dL 10/10/2023 10:49 AM [facility] BILIRUBIN TOTAL 0.6 0.2 - 1.1 mg/dL 10/10/2023 10:49 AM [facility] ALKALINE PHOSPHATASE 84 40 - 150 U/L 10/10/2023 10:49 AM [facility] AST 15 0 - 41 U/L 10/10/2023 10:49 AM [facility] ALT 13 0 - 41 U/L 10/10/2023 10:49 AM [facility] GFR 58 mL/min/1.7 3 sq meter 10/10/2023 10:49 AM [facility] Comment:eGFR calculated with 2020 CKD-EPI equation. Vegetarian diet, extremely high or low muscle mass, and may affect results. Cystatin C with Glomerular Filtration Rate is a suitable alternative for these patients. 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
--- OUTSIDE RECORDS SUMMARY | 2024-11-06 10:17 | XMS_ITS | Referral Summary ---
Author Organization [facility] Address [address] [place] [address] Care Team Providers Care Concrete Sculptor Name Role Phone Demond Stark MD Primary Care Provider [phone] Source Comments [facility],non-owned Affiliates and Associated Physician Practices is amultiple site organization consisting of ambulatory clinics and hospital sitesin [place], [place], [place] and [place]. This disclosure is being madepursuant to the Care Everywhere program and may not contain all information available regarding this patient. Last updated 18.[facility] Encounters Date Type Department Care Team Description 11/02/2024 Orders Only [facility] - Neurology [address] [facility] [address] [place] [address] Alberto Jeffers MD Falls ; Cerebrovascular accident (CVA), unspecified mechanism (HCC); Type 2 diabetes mellitus with other specified complication, unspecified whether detention insulin use (HCC) 10/25/2024 Travel 10/25/2024 4:30 PM CRYPTOGRAPHIC CLERK - 10/25/2024 11:59 PM CRYPTOGRAPHIC CLERK Hospital Encounter [facility] MRI [address] [place] [address] Natalia Vann, DO Discharge Disposition: Home or Self Care 10/25/2024 4:30 PM CRYPTOGRAPHIC CLERK - 10/25/2024 11:59 PM CRYPTOGRAPHIC CLERK Hospital Encounter [facility] MRI [address] [place] [address] Natalia Vann, DO Discharge Disposition: Home or Self Care 10/25/2024 4:30 PM CRYPTOGRAPHIC CLERK Hospital Encounter [facility] MRI [address] [place] [address] Natalia Vann, DO Discharge Disposition: Home or Self Care 10/17/2024 Travel 10/17/2024 5:55 PM CRYPTOGRAPHIC CLERK - 10/17/2024 11:59 PM CRYPTOGRAPHIC CLERK Hospital Encounter [facility] MRI [address] [place] [address] Natalia Vann, DO Discharge Disposition: Home or Self Care 10/09/2024 Travel 10/09/2024 11:00 AM CRYPTOGRAPHIC CLERK Office Visit [facility] - Neurology [address] [place] [phone] Alberto Jeffers MD Imbalance (Primary Dx); Back pain, unspecified back location, unspecified back pain laterality, unspecified chronicity; Cervical spine arthritis 08/28/2024 Travel 08/28/2024 10:00 AM CRYPTOGRAPHIC CLERK Office Visit [facility] - Neurology [address] [place] [id number] Alberto Jeffers MD Parkinsonism, unspecified Parkinsonism type (HCC) (Primary Dx); Falls; Atrial fibrillation, unspecified type (HCC); Muscular deconditioning from Last 3 Months Allergies Active Allergy Reactions Criticality Noted Date Comments Diphenhydramine Other 06/05/2024 Insomnia, hallucinations Benazepril Unknown 06/05/2024 Halobetasol Rash Medium 06/05/2024 Quetiapine Other 06/05/2024 Hallucinations, insomnia Hmg-Coa-R Inhibitors Other Low 10/03/2015 Pt reports leg weakness/heaviness when taking zocor. Medications * Be aware that medications may not be up to date on this document. Alwaysverify current medications with the patient. Medication Sig Dispensed Refills Start Date End Date Status aspirin EC (Ecotrin) 81 MG tablet Take 2 (two) tablets by mouth once daily Active docusate sodium (Docuprene) 100 MG tablet Take 0.5 (one-half) tablet by mouth 2 times daily Active famotidine (Pepcid) 20 MG tablet Take 1 (one) tablet by mouth once daily Active rivaroxaban (Xarelto) 20 MG tablet Take by mouth daily with food Active loratadine (Claritin) 10 MG tablet Take 1 (one) tablet by mouth once daily Active levothyroxine (Synthroid) 50 MCG tablet Take 1 (one) tablet by mouth daily before breakfast Active pyridoxine (Vitamin B-6) 50 MG tablet Take 1 (one) tablet by mouth once daily Active folic acid 400 MCG tablet Take 1 (one) tablet by mouth once daily Active polyethylene glycol 3350 (Miralax) 17 GM/SCOOP powder Take 17 (seventeen) g by mouth once daily Active carbidopa-levodo pa (Sinemet) 25-100 MG tabletIndication s:Parkinsonism,R estless Leg Syndrome Sinemet 25/100mg: Take 0.5 tab at bedtime for 3 days, then 0.5 tab twice daily for 3 days, then 0.5 tab morning/noon and 1 tab at bedtime for 3 days, then 1 tab morning/bedtime and 0.5 tab noon for 3 days, then 1 tab three times daily. 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 Social History Tobacco Use Types Packs/Day Years Used Date Smoking Tobacco: Former Cigarettes Q uit: 09/23/1969 Smokeless Tobacco: Never Alcohol Use Standard Drinks/Week Comments Yes 0 (1 standard drink = 0.6 oz pur e alcohol) Sex and Gender Information Value Date Recorded Sex Assigned at Not on file Gender Identity Not on file Sexual Orientation Not on file Last Filed Vital Signs Vital Sign Reading Time Taken Comments Blood Pressure 150/69 10/09/2024 10:39 AM CRYPTOGRAPHIC CLERK Pulse 67 10/09/2024 10:39 AM CRYPTOGRAPHIC CLERK Temperature 36.1 C (97 F) 05/24/2016 9:16 AM CDT Respiratory Rate 14 10/10/2015 9:00 PM CRYPTOGRAPHIC CLERK Oxygen Saturation 97% 08/28/2024 10:07 AM CRYPTOGRAPHIC CLERK Inhaled Oxygen Concentration - - Weight 100.2 kg (221 lb) 10/09/2024 10:39 AM CRYPTOGRAPHIC CLERK Height 182.9 cm (6') 11/21/2017 9:32 AM CRYPTOGRAPHIC CLERK Body Mass Index 29.97 11/21/2017 9:32 AM CRYPTOGRAPHIC CLERK Plan of Treatment Upcoming Encounters Date Type Department Care Team (Late st Contact Info) Description 01/01/2025 9:30 AM CDT Office Visit [facility] - Neurology [address] [facility] [place] [address] Alberto Jeffers MD [address] [facility] [place] [address] Procedures Procedure Name Priority Date/Time Associated Diagnosis Comments MRI THORACIC SPINE WO CONTRAST Routine 10/25/2024 6:20 PM CRYPTOGRAPHIC CLERK Imbalance Back pain, unspecified back location, unspecified back pain laterality, unspecified chronicity Cervical spine arthritis MRI LUMBAR SPINE WO CONTRAST Routine 10/25/2024 6:20 PM CRYPTOGRAPHIC CLERK Imbalance Back pain, unspecified back location, unspecified back pain laterality, unspecified chronicity Cervical spine arthritis MRI CERVICAL SPINE WO CONTRAST Routine 10/25/2024 6:20 PM CRYPTOGRAPHIC CLERK Imbalance Back pain, unspecified back location, unspecified back pain laterality, unspecified chronicity Cervical spine arthritis MRI BRAIN WWO CONTRAST Routine 10/17/2024 6:43 PM CRYPTOGRAPHIC CLERK Imbalance Back pain, unspecified back location, unspecified back pain laterality, unspecified chronicity Cervical spine arthritis from Last 3 Months Results * MRI Thoracic Spine Wo Contrast (10/25/2024 6:20 PM CRYPTOGRAPHIC CLERK) Anatomical Region Laterality Modality Chest Magnetic Resonan ce 11/01/2024 10:3 8 AM CRYPTOGRAPHIC CLERK Impressions 11/01/2024 11:01 AM CRYPTOGRAPHIC CLERK IMPRESSION: 1. No acute findings in the thoracic spine. No cord abnormality or cord compression. 2. Mild multilevel degenerative disc disease and mild to moderate multilevel facet as a synovitis in the lumbar spine. No central canal stenosis. > Interpreting Provider: Mikaela Cunningham MD on 11/01/2024 11:01 AM Narrative 11/01/2024 11:01 AM CRYPTOGRAPHIC CLERK PROCEDURE: MRI THORACIC SPINE WO CONTRAST, DATE/TIME OF EXAM: 10/25/2024 6:20 PM, LOCATION [facility] INDICATION: R26.89: Imbalance M54.9: Back pain, unspecified back location, unspecified back pain laterality, unspecified chronicity M47.812: Cervical spine arthritis ADDITIONAL CLINICAL INFORMATION: Ordering Provider Reason For Exam: Technologist Note: Additional: EXAMINATION: Magnetic resonance imaging (MRI) of the thoracic spine without contrast TECHNIQUE: MRI of the thoracic spine was performed without contrast according to standard protocol. COMPARISON: No prior study is available for comparison at the time of this dictation. FINDINGS: Slightly exaggerated thoracic kyphosis. Vertebral bodies are normal in height without evidence of acute fracture. The visible bone marrow is normal. The thoracic spinal cord appears normal. There is mild multilevel degenerative disc disease. The central canal is patent. There are varying degrees of mild to moderate multiple facet osteoarthritis, more pronounced in the lower thoracic spine, with the same degree of neural foraminal stenosis at these levels. Small peroneal cysts are seen at multiple levels, an incidental finding. No soft tissue abnormality is identified. Procedure Note Mikaela Cunningham MD - 11/01/2024 PROCEDURE: MRI THORACIC SPINE WO CONTRAST, DATE/TIME OF EXAM: 10/25/2024 6:20 PM, LOCATION [facility] INDICATION: R26.89: Imbalance M54.9: Back pain, unspecified back location, unspecified back pain laterality, unspecified chronicity M47.812: Cervical spine arthritis ADDITIONAL CLINICAL INFORMATION: Ordering Provider Reason For Exam: Technologist Note: Additional: EXAMINATION: Magnetic resonance imaging (MRI) of the thoracic spinewithout contrast TECHNIQUE: MRI of the thoracic spine was performed without contrast according to standard protocol. COMPARISON: No prior study is available for comparison at the time ofthis dictation. FINDINGS: Slightly exaggerated thoracic kyphosis. Vertebral bodies are normal in height without evidence of acute fracture. The visible bone marrow is normal. The thoracic spinal cord appears normal. There is mild multilevel degenerative disc disease. The central canal is patent. There are varying degrees of mild to moderate multiple facet osteoarthritis, more pronounced in the lower thoracic spine, with thesame degree of neural foraminal stenosis at these levels. Small peronealcysts are seen at multiple levels, an incidental finding. No soft tissue abnormality is identified. IMPRESSION: 1. No acute findings in the thoracic spine. No cord abnormality or cord compression. 2. Mild multilevel degenerative disc disease and mild to moderate multilevel facet as a synovitis in the lumbar spine. No central canal stenosis. > Interpreting Provider: Mikaela Cunningham MD on 11/01/2024 11:01 AM Natalia Vann DO MR ORDERABLES * MRI Lumbar Spine Wo Contrast (10/25/2024 6:20 PM CRYPTOGRAPHIC CLERK) Anatomical Region Laterality Modality Spine Magnetic Resonan ce 11/01/2024 11:0 1 AM CRYPTOGRAPHIC CLERK Impressions 11/01/2024 11:09 AM CRYPTOGRAPHIC CLERK IMPRESSION: 1. 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 No significant central canal or neuroforamina stenosis. > Interpreting Provider: Mikaela Cunningham MD on 11/01/2024 11:09 AM Narrative 11/01/2024 11:09 AM CRYPTOGRAPHIC CLERK PROCEDURE: MRI LUMBAR SPINE WO CONTRAST, DATE/TIME OF EXAM: 10/25/2024 6:20 PM, LOCATION [facility] INDICATION: R26.89: Imbalance M54.9: Back pain, unspecified back location, unspecified back pain laterality, unspecified chronicity M47.812: Cervical spine arthritis ADDITIONAL CLINICAL INFORMATION: Ordering Provider Reason For Exam: frequent falls, cervical scoliosis, h/o back trauma, absent to dimished deep reflexes Technologist Note: Additional: EXAMINATION: Magnetic resonance imaging (MRI) of the lumbar spine without contrast TECHNIQUE: MRI of the lumbar spine was performed without intravenous contrast according to standard protocol. FINDINGS: The alignment is normal. Vertebral bodies are normal in height without evidence of acute fracture. The visible bone marrow is normal. The conus medullaris terminates at the level of L1 and the distal spinal cord signal intensity is normal. Degenerative disc and joint disease is noted at multiple levels as detailed below. Cysts in the kidneys. L1-L2: There is mild disc bulge. There is no central canal stenosis. There is mild bilateral facet osteoarthritis. There is no neural foraminal stenosis. L2-L3: There is mild disc bulge. There is no central canal stenosis. There is mild bilateral facet osteoarthritis. There is no neural foraminal stenosis. L3-L4: There is mild disc bulge. There is no central canal stenosis. There is mild bilateral facet osteoarthritis. There is no neural foraminal stenosis. L4-L5: There is mild disc bulge. There is no central canal stenosis. There is mild bilateral facet osteoarthritis. There is no neural foraminal stenosis. L5-S1: There is mild disc bulge. There is no central canal stenosis. There is moderate bilateral facet osteoarthritis. There is no neural foraminal stenosis. Procedure Note Mikaela Cunningham MD - 11/01/2024 PROCEDURE: MRI LUMBAR SPINE WO CONTRAST, DATE/TIME OF EXAM: :20 PM, LOCATION [facility] INDICATION: R26.89: Imbalance M54.9: Back pain, unspecified back location, unspecified back pain laterality, unspecified chronicity M47.812: Cervical spine arthritis ADDITIONAL CLINICAL INFORMATION: Ordering Provider Reason For Exam: frequent falls, cervical scoliosis,h/o back trauma, absent to dimished deep reflexes Technologist Note: Additional: EXAMINATION: Magnetic resonance imaging (MRI) of the lumbar spinewithout contrast TECHNIQUE: MRI of the lumbar spine was performed without intravenous contrast according to standard protocol. FINDINGS: The alignment is normal. Vertebral bodies are normal in height without evidence of acute fracture. The visible bone marrow is normal. Theconus medullaris terminates at the level of L1 and the distal spinal cordsignal intensity is normal. Degenerative disc and joint disease is noted at multiple levels as detailed below. Cysts in the kidneys. L1-L2: There is mild disc bulge. There is no central canal stenosis.There is mild bilateral facet osteoarthritis. There is no neural foraminal stenosis. L2-L3: There is mild disc bulge. There is no central canal stenosis.There is mild bilateral facet osteoarthritis. There is no neural foraminal stenosis. L3-L4: There is mild disc bulge. There is no central canal stenosis.There is mild bilateral facet osteoarthritis. There is no neural foraminal stenosis. L4-L5: There is mild disc bulge. There is no central canal stenosis.There is mild bilateral facet osteoarthritis. There is no neural foraminal stenosis. L5-S1: There is mild disc bulge. There is no central canal stenosis.There is moderate bilateral facet osteoarthritis. There is no neural foraminal stenosis. IMPRESSION: 1. Mild to moderate degenerative disc and joint disease in the lumbarspine as above, more pronounced at L5-S1. No significant central canal or neuroforamina stenosis. > Interpreting Provider: Mikaela Cunningham MD on 11/01/2024 11:09 AM Natalia Vann DO MR ORDERABLES * MRI Cervical Spine Wo Contrast (10/25/2024 6:20 PM CRYPTOGRAPHIC CLERK) Anatomical Region Laterality Modality Pelvis Magnetic Resonan ce 11/01/2024 10:3 1 AM CRYPTOGRAPHIC CLERK Impressions 11/01/2024 10:38 AM CRYPTOGRAPHIC CLERK IMPRESSION: 1. 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 > Interpreting Provider: Mikaela Cunningham MD on 11/01/2024 10:38 AM Narrative 11/01/2024 10:38 AM CRYPTOGRAPHIC CLERK PROCEDURE: MRI CERVICAL SPINE WO CONTRAST, DATE/TIME OF EXAM: 10/25/2024 6:20 PM, LOCATION [facility] INDICATION: R26.89: Imbalance M54.9: Back pain, unspecified back location, unspecified back pain laterality, unspecified chronicity M47.812: Cervical spine arthritis ADDITIONAL CLINICAL INFORMATION: Ordering Provider Reason For Exam: frequent falls, cervical scoliosis, h/o back trauma, absent to dimished deep reflexes Technologist Note: Additional: EXAMINATION: Magnetic resonance imaging (MRI) of the cervical spine without contrast TECHNIQUE: MRI of the cervical spine was performed without intravenous contrast according to standard protocol. FINDINGS: Slightly exaggerated cervical vertebral doses. Mild anterolisthesis of C4 on C5 and C5 on C6, likely degenerative in etiology. Approximately 30% chronic appearing height loss of the C6 vertebral body. Other than moderate degenerative endplate changes at multiple levels, the bone marrow signal is normal. Other than middle atlantoaxial joint osteoarthritis, the craniocervical junction appears normal. Other than mild posterior displacement at C6-C7, the spinal cord appears normal. The intervertebral discs are normal in height. No soft tissue abnormality is identified. Normal flow voids are identified in the vertebral arteries. C2-3: There is no disc bulge. There is no central canal stenosis. There is mild bilateral facet osteoarthritis. There is mild bilateral uncovertebral joint osteoarthritis. There is no neural foraminal stenosis. C3-4: There is no disc bulge. There is no central canal stenosis. There is moderate bilateral facet osteoarthritis. There is mild bilateral uncovertebral joint osteoarthritis. There is no neural foraminal stenosis. C4-5: There is mild disc bulge and a small central disc protrusion. There is mild ligamentum flavum thickening. There is mild central canal stenosis. There is moderate right and mild left facet osteoarthritis. There is moderate bilateral uncovertebral joint osteoarthritis. There is moderate bilateral neural foraminal stenosis. C5-6: There is mild disc bulge. There is no central canal stenosis. There is moderate right and severe left facet osteoarthritis. There is mild bilateral uncovertebral joint osteoarthritis. There is mild bilateral neural foraminal stenosis. C6-7: There is mild disc bulge. There is no central canal stenosis. There is mild to moderate bilateral facet osteoarthritis. There is mild bilateral uncovertebral joint osteoarthritis. There is mild left neural foraminal stenosis. C7-T1: There is no disc bulge. There is no central canal stenosis. There is mild right and moderate left facet osteoarthritis. There is mild right and moderate left uncovertebral joint osteoarthritis. There is no neural foraminal stenosis. Procedure Note Mikaela Cunningham MD - 11/01/2024 PROCEDURE: MRI CERVICAL SPINE WO CONTRAST, DATE/TIME OF EXAM: 10/25/2024 6:20 PM, LOCATION [facility] INDICATION: R26.89: Imbalance M54.9: Back pain, unspecified back location, unspecified back pain laterality, unspecified chronicity M47.812: Cervical spine arthritis ADDITIONAL CLINICAL INFORMATION: Ordering Provider Reason For Exam: frequent falls, cervical scoliosis,h/o back trauma, absent to dimished deep reflexes Technologist Note: Additional: EXAMINATION: Magnetic resonance imaging (MRI) of the cervical spinewithout contrast TECHNIQUE: MRI of the cervical spine was performed without intravenous contrast according to standard protocol. FINDINGS: Slightly exaggerated cervical vertebral doses. Mild anterolisthesis ofC4 on C5 and C5 on C6, likely degenerative in etiology. Approximately 30% chronic appearing height loss of the C6 vertebral body. Other thanmoderate degenerative endplate changes at multiple levels, the bone marrow signalis normal. Other than middle atlantoaxial joint osteoarthritis, the craniocervical junction appears normal. Other than mild posterior displacement at C6-C7, the spinal cord appears normal. Theintervertebral discs are normal in height. No soft tissue abnormality is identified. Normal flow voids areidentified in the vertebral arteries. C2-3: There is no disc bulge. There is no central canal stenosis. Thereis mild bilateral facet osteoarthritis. There is mild bilateraluncovertebral joint osteoarthritis. There is no neural foraminal stenosis. C3-4: There is no disc bulge. There is no central canal stenosis. Thereis moderate bilateral facet osteoarthritis. There is mild bilateral uncovertebral joint osteoarthritis. There is no neural foraminalstenosis. C4-5: There is mild disc bulge and a small central disc protrusion.There is mild ligamentum flavum thickening. There is mild central canalstenosis. There is moderate right and mild left facet osteoarthritis. There is moderate bilateral uncovertebral joint osteoarthritis. There is moderate bilateral neural foraminal stenosis. C5-6: There is mild disc bulge. There is no central canal stenosis.There is moderate right and severe left facet osteoarthritis. There is mild bilateral uncovertebral joint osteoarthritis. There is mild bilateral neural foraminal stenosis. C6-7: There is mild disc bulge. There is no central canal stenosis.There is mild to moderate bilateral facet osteoarthritis. There is mildbilateral uncovertebral joint osteoarthritis. There is mild left neural foraminal stenosis. C7-T1: There is no disc bulge. There is no central canal stenosis. Thereis mild right and moderate left facet osteoarthritis. There is mild rightand moderate left uncovertebral joint osteoarthritis. There is no neural foraminal stenosis. IMPRESSION: 1. 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 > Interpreting Provider: Mikaela Cunningham MD on 11/01/2024 10:38 AM Natalia Vann DO MR ORDERABLES * MRI Brain Wwo Contrast (10/17/2024 6:43 PM CRYPTOGRAPHIC CLERK) Anatomical Region Laterality Modality Head Magnetic Resonan ce 10/22/2024 4:16 PM CRYPTOGRAPHIC CLERK Impressions 10/22/2024 4:28 PM CRYPTOGRAPHIC CLERK IMPRESSION: 1. No acute intracranial process. Specifically, no acute infarct or acute intracranial hemorrhage. No hydrocephalus, intracranial mass or abnormal enhancement in the brain. 2. Moderate periventricular and subcortical white matter FLAIR hyperintensities likely represent sequelae of chronic small vessel ischemic disease. 3. A small focus of nonenhancing increased DWI signal without diffusion restriction in the left parietal white matter could represent a subacute infarct versus a demyelinating plaque. If clinically indicated, follow-up brain MRI may be considered to further evaluate. > Interpreting Provider: Mikaela Cunningham MD on 10/22/2024 4:28 PM Narrative 10/22/2024 4:28 PM CRYPTOGRAPHIC CLERK PROCEDURE: MRI BRAIN WWO CONTRAST, DATE/TIME OF EXAM: 10/17/2024 6:45 PM, LOCATION [facility] INDICATION: R26.89: Imbalance M54.9: Back pain, unspecified back location, unspecified back pain laterality, unspecified chronicity M47.812: Cervical spine arthritis ADDITIONAL CLINICAL INFORMATION: Ordering Provider Reason For Exam: frequent falls, dizziness cervical scoliosis, h/o back trauma, absent to diminished deep reflexes Technologist Note: Additional: TECHNIQUE: MRI of the brain was performed prior to and following the uneventful administration of 10 mL Gadavist intravenous contrast according to standard protocol. CONTRAST: GADOBUTROL 1 MMOL/ML IV [facility] SO:10 mL COMPARISON: CT angiogram of the head and neck and noncontrast head CT dated 06/22/2024. FINDINGS: No evidence of acute cerebral infarction is seen. No acute intracranial hemorrhage. There is a small chronic microhemorrhage in the left occipital white matter (series 7 image 26) There is mild cerebral volume loss with associated ex vacuo ventricular dilatation. No mass effect or midline shift is seen. Moderate periventricular and subcortical white matter FLAIR hyperintensities likely represent sequelae of chronic small vessel ischemic disease. There is a small focus of increased DWI signal without diffusion restriction in the left parietal white matter (series 3 image 13), which could represent a subacute infarct versus a demyelinating plaque. No enhancing lesions are identified. The corpus callosum and sella appear normal. The posterior fossa, brainstem, and craniocervical junction appear normal. The visualized portions of the orbits, paranasal sinuses, and mastoids appear normal. Normal flow voids are demonstrated in the carotid arteries and basilar artery. The calvarium and visualized cervical spine appear normal. Procedure Note Mikaela Cunningham MD - 10/22/2024 PROCEDURE: MRI BRAIN WWO CONTRAST, DATE/TIME OF EXAM: 10/17/2024 6:45PM, LOCATION [facility] INDICATION: R26.89: Imbalance M54.9: Back pain, unspecified back location, unspecified back pain laterality, unspecified chronicity M47.812: Cervical spine arthritis ADDITIONAL CLINICAL INFORMATION: Ordering Provider Reason For Exam: frequent falls, dizziness cervical scoliosis, h/o back trauma, absent to diminished deep reflexes Technologist Note: Additional: TECHNIQUE: MRI of the brain was performed prior to and following the uneventful administration of 10 mL Gadavist intravenous contrastaccording to standard protocol. CONTRAST: GADOBUTROL 1 MMOL/ML IV SSM SO:10 mL COMPARISON: CT angiogram of the head and neck and noncontrast head CTdated 06/22/2024. FINDINGS: No evidence of acute cerebral infarction is seen. No acute intracranial hemorrhage. There is a small chronic microhemorrhage in the leftoccipital white matter (series 7 image 26) There is mild cerebral volume loss with associated ex vacuo ventricular dilatation. No mass effect or midlineshift is seen. Moderate periventricular and subcortical white matter FLAIR hyperintensities likely represent sequelae of chronic small vesselischemic disease. There is a small focus of increased DWI signal withoutdiffusion restriction in the left parietal white matter (series 3 image 13), which could represent a subacute infarct versus a demyelinating plaque. No enhancing lesions are identified. The corpus callosum and sella appear normal. The posterior fossa, brainstem, and craniocervical junctionappear normal. The visualized portions of the orbits, paranasal sinuses, and mastoids appear normal. Normal flow voids are demonstrated in the carotidarteries and basilar artery. The calvarium and visualized cervical spine appear normal. IMPRESSION: 1. No acute intracranial process. Specifically, no acute infarct oracute intracranial hemorrhage. No hydrocephalus, intracranial mass or abnormal enhancement in the brain. 2. Moderate periventricular and subcortical white matter FLAIR hyperintensities likely represent sequelae of chronic small vesselischemic disease. 3. A small focus of nonenhancing increased DWI signal without diffusion restriction in the left parietal white matter could represent a subacute infarct versus a demyelinating plaque. If clinically indicated,follow-up brain MRI may be considered to further evaluate. > Interpreting Provider: Mikaela Cunningham MD on 10/22/2024 4:28 PM Natalia Vann DO MR ORDERABLES from Last 3 Months Care Teams Concrete Sculptor Relationship Specialty Start Date End Date Demond Stark MD [address] [place] [address] PCP - General 10/03/15
--- OUTSIDE RECORDS SUMMARY | 2024-11-06 10:17 | XMS_ITS | Encounter Summary ---
Author Organization [facility] Address [address] [place] [id number] Care Team Providers Care Site Worker Name Role Phone Demond Stark MD Primary Care Provider [phone] Encounter Details Date Type Department Care Team (Late st Contact Info) Description 10/16/2016 Orders Only [facility] ProviderTaylor MD [address] [place], [place] [id number] Social History Tobacco Use Types Packs/Day Years Used Date Smoking Tobacco: Former Cigarettes Q uit: 09/23/1969 Alcohol Use Standard Drinks/Week Comments Yes 0 (1 standard drink = 0.6 oz pur e alcohol) Sex and Gender Information Value Date Recorded Sex Assigned at Not on file Legal Sex Male 8:49 AM COLLEGE PRESIDENT Gender Identity Not on file Sexual Orientation Not on file documented as of this encounter Plan of Treatment Not on file documented as of this encounter Procedures Procedure Name Priority Date/Time Associated Diagnosis Comments CARDIOLOGY REPORT 10/16/2016 documented in this encounter Results * CARDIOLOGY REPORT (10/16/2016) Anatomical Region Laterality Modality Other Narrative 10/16/2016 Ordered by an unspecified provider. Historical Provider [facility] Final Result documented in this encounter Visit Diagnoses Not on filedocumented in this encounter Care Teams Site Worker Relationship Specialty Start Date End Date Demond Stark MD PCP - General 07/23/11 documented as of this encounter
--- OUTSIDE RECORDS SUMMARY | 2024-11-06 10:17 | XMS_ITS | Clinical Summary ---
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 Gender Identity Not on file Sexual Orientation Not on file Plan of Treatment Health Maintenance Due Date Last Done Comments DTAP/TDAP/TD VACCINES (1 - Tdap) 02/21/1959 PNEUMOCOCCAL VACCINE 65+ YEARS (1 of 1 - PCV) 02/21/19 90 ZOSTER VACCINE (1 of 2) 02/21/1990 RSV VACCINE (60+ or ) (1 - 1-dose 75+ series) 02/21/2015 INFLUENZA VACCINE (#1) 2024 Additional Health Concerns Infection Onset Date Last Indicated 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
--- OUTSIDE RECORDS SUMMARY | 2024-11-06 10:17 | XMS_ITS | Encounter Summary ---
Author Organization [facility] Address [address] [place] [address] Care Team Providers Care Technicians And Trades Workers Name Role Phone Unavailable Primary Care Provider Unavailabl e Encounter Details Date Type Department Care Team (Late st Contact Info) Description 10/10/2023 Lab Requisition [facility] [address] [place] [address] [place] [address] [place] [address] Social History Tobacco Use Types Packs/Day Years Used Date Smoking Tobacco: Never Assessed Sex and Gender Information Value Date Recorded Sex Assigned at Not on file Legal Sex Male 9:18 AM CLINICAL DATA MANAGEMENT DIRECTOR Gender Identity Not on file Sexual Orientation Not on file documented as of this encounter Plan of Treatment Not on file documented as of this encounter Procedures Procedure Name Priority Date/Time Associated Diagnosis Comments CARBAPENEM RESISTANT ORGANISM Routine 10/09/2023 9:30 PM CLINICAL DATA MANAGEMENT DIRECTOR SPUTUM CULTURE WITH GRAM STAIN Routine 10/09/2023 9:30 PM CLINICAL DATA MANAGEMENT DIRECTOR documented in this encounter Results * (ABNORMAL) CARBAPENEM RESISTANT ORGANISM (10/09/2023 9:30 PM CLINICAL DATA MANAGEMENT DIRECTOR) ORGANISM TESTED Klebsiella pneumoniae 10/12/2023 4:25 PM CLINICAL DATA MANAGEMENT DIRECTOR [facility] Carbapenem Resistance Gene Detected(A) Not Detected 10/12/2023 4:25 PM CLINICAL DATA MANAGEMENT DIRECTOR [facility] KPC (carbapenem-re sistance gene) by PCR DETECTED(A) Not Detected 10/12/2023 4:25 PM CLINICAL DATA MANAGEMENT DIRECTOR [facility] Sputum Collection / Unknown 10/09/2023 9:30 PM CLINICAL DATA MANAGEMENT DIRECTOR 10/10/2023 9:54 AM CLINICAL DATA MANAGEMENT DIRECTOR [facility] - 10/12/2023 4:25 PM CLINICAL DATA MANAGEMENT DIRECTOR This isolate is a carbapenem-resistant Organism (SURFACE TO AIR WEAPONS OFFICER) AND is a carbapenamase-broadcast news producer. If inpatient, place patient in Enhanced Contact Isolation. The [employer]ep[employer]atheter [employer]ctions Xpert Carba-R PCR assay detects the presence of KPC, NDM, VIM, OXA- 48, and IMP gene sequences that induce carbapenemase production in gram negative bacteria. This test was performed using an FDA approved screening methodology. Erik Chairez MD MICROBIOLOGY - GENERAL ORDERABLE S Final Result [facility]# [id number] [address] [place] [place] [address] * (ABNORMAL) SPUTUM CULTURE WITH GRAM STAIN (10/09/2023 9:30 PM CLINICAL DATA MANAGEMENT DIRECTOR) CULTURE KLEBSIELLA PNEUMONIAE(A) LUCINA MCG/ML 10/17/2023 10:47 AM CLINICAL DATA MANAGEMENT DIRECTOR [facility] Comment: This isolate is a Carbapenem-Resistant Organism AND is a carbapenemase broadcast news producer (SURFACE TO AIR WEAPONS OFFICER-CP). If inpatient, place patient in Enhanced Contact Isolation. Multiple drug resistant organism (MDRO). CULTURE Absent Normal Shahrzad LUCINA MCG/ML 10/17/2023 10:47 AM [facility] GRAM STAIN Non diagnostic pattern LUCINA MCG/ML 10/17/2023 10:47 AM [facility] GRAM STAIN No WBC observed 10/17/2023 10:47 AM [facility] Sputum Collection / Unknown 10/09/2023 9:30 PM CLINICAL DATA MANAGEMENT DIRECTOR 10/10/2023 9:54 AM CLINICAL DATA MANAGEMENT DIRECTOR [facility] [employer] [facility] [employer] [facility] - 10/17/2023 10:47 AM CLINICAL DATA MANAGEMENT DIRECTOR Results called to Kelly Suarez RN, Rosalie Carter, on 10/12/2023 at 4:31 PM and read back verified. Results called to thomas zambrano/Madiha ZELAYA, , on 10/12/2023 at 4:34 PM and read back verified. Organism Antibiotic Method Susceptibility Klebsiella pneumoniae AMPICILLIN ARMSTRONG-HERMOSILLO Resistant Klebsiella pneumoniae AMPICILLIN/ SULBACTAM ARMSTRONG-BAUE R Resistant Klebsiella pneumoniae PIPERACILLIN/ TAZOBACTAM ARMSTRONG-B NEO Resistant Klebsiella pneumoniae MEROPENEM ARMSTRONG-HERMOSILLO Resistant Klebsiella pneumoniae CEFAZOLIN ARMSTRONG-HERMOSILLO Resistant Klebsiella pneumoniae CEFTAZIDIME ARMSTRONG-HERMOSILLO Resistant Klebsiella pneumoniae CEFTRIAXONE ARMSTRONG-HERMOSILLO Resistant Klebsiella pneumoniae CEFEPIME ARMSTRONG-HERMOSILLO Resistant Klebsiella pneumoniae AZTREONAM ARMSTRONG-HERMOSILLO Resistant Klebsiella pneumoniae GENTAMICIN ARMSTRONG-HERMOSILLO Susceptible Klebsiella pneumoniae TOBRAMYCIN ARMSTRONG-HERMOSILLO Intermediate Klebsiella pneumoniae AMIKACIN ARMSTRONG-HERMOSILLO Susceptible Klebsiella pneumoniae CIPROFLOXACIN ARMSTRONG-HERMOSILLO Resistant Klebsiella pneumoniae TRIMETHOPRIM/ SULFAMETHOXAZOLE K HENRY-HERMOSILLO Resistant Klebsiella pneumoniae TIGECYCLINE ARMSTRONG-HERMOSILLO Intermediate Comment:Results are based on FDA guidelines which are not available from CLSI. Klebsiella pneumoniae CEFTAZIDIME/ AVIBACTAM ARMSTRONG-BAU ER Resistant Klebsiella pneumoniae MEROPENEM/VABORBACTAM ARMSTRONG-BAUE R Susceptible Klebsiella pneumoniae CEFIDEROCOL ARMSTRONG-HERMOSILLO Susceptible Comment:Results are based on FDA guidelines which are not available from CLSI. Comment:Aminoglycosides shou ld not be used as monotherapy for infections outside the urinary tract. Consultation with an infectious diseases specialist is recommended. 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
--- OUTSIDE RECORDS SUMMARY | 2024-11-06 10:17 | XMS_ITS | Clinical Summary ---
Author Organization [facility] Address [address] [place] [address] Care Team Providers Care Fishing Rod Mechanic Name Role Phone Demond Stark MD Primary Care Provider [phone] Source Comments [facility],non-owned Affiliates and Associated Physician Practices is amultiple site organization consisting of ambulatory clinics and hospital sitesin [place], [place], [place] and [place]. This disclosure is being madepursuant to the Care Everywhere program and may not contain all information available regarding this patient. 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 Encounters Date Type Department Care Team Description 11/02/2024 Orders Only [facility] - Neurology [address] [facility] [place] [address] Alberto Jeffers MD Falls ; Cerebrovascular accident (CVA), unspecified mechanism (HCC); Type 2 diabetes mellitus with other specified complication, unspecified whether chcf insulin use (HCC) 10/25/2024 4:30 PM CHIEF SERVICE OBSERVER - 10/25/2024 11:59 PM [facility] Hospital Encounter [id number] [place] [address] Natalia Vann, DO Discharge Disposition: Home or Self Care 10/25/2024 4:30 PM CHIEF SERVICE OBSERVER - 10/25/2024 11:59 PM [facility] Hospital Encounter [id number] [place] [address] Naatlia Vann, DO Discharge Disposition: Home or Self Care 10/25/2024 4:30 PM [facility] Hospital Encounter [address] [address] Natalia Vann, DO Discharge Disposition: Home or Self Care 10/25/2024 Travel 10/17/2024 5:55 PM CHIEF SERVICE OBSERVER - 10/17/2024 11:59 PM CHIEF SERVICE OBSERVER Hospital Encounter [facility] MRI [address] [place] [address] Natalia Vann, DO Discharge Disposition: Home or Self Care 10/17/2024 Travel 10/09/2024 11:00 AM CHIEF SERVICE OBSERVER Office Visit [facility] - Neurology [address] [place] [phone] Alberto Jeffers MD Imbalance (Primary Dx); Back pain, unspecified back location, unspecified back pain laterality, unspecified chronicity; Cervical spine arthritis 10/09/2024 Travel 08/28/2024 10:00 AM CHIEF SERVICE OBSERVER Office Visit [facility] - Neurology [address] [place] [phone] Alberto Jeffers MD Parkinsonism, unspecified Parkinsonism type (HCC) (Primary Dx); Falls; Atrial fibrillation, unspecified type (HCC); Muscular deconditioning 08/28/2024 Travel from Last 3 Months Social History Tobacco Use Types Packs/Day Years [...] Comments Blood Pressure 150/69 10/09/2024 10:39 AM CHIEF SERVICE OBSERVER Pulse 67 10/09/2024 10:39 AM CHIEF SERVICE OBSERVER Temperature 36.1 C (97 F) 05/24/2016 9:16 AM CDT Respiratory Rate 14 10/10/2015 9:00 PM CHIEF SERVICE OBSERVER Oxygen Saturation 97% 08/28/2024 10:07 AM CHIEF SERVICE OBSERVER Inhaled Oxygen Concentration - - Weight 100.2 kg (221 lb) 10/09/2024 10:39 AM CHIEF SERVICE OBSERVER Height 182.9 cm (6') 11/21/2017 9:32 AM CHIEF SERVICE OBSERVER Body Mass Index 29.97 11/21/2017 9:32 AM CHIEF SERVICE OBSERVER Plan of Treatment Upcoming Encounters Date Type Department Care Team (Late st Contact Info) Description 01/01/2025 9:30 AM CDT Office Visit [facility] - Neurology [address] [place] [phone] Alberto Jeffers MD [address] [facility] [place] [address] Health Maintenance Due Date Last Done Comments MEDICARE AWV 12 MONTHS 1940 DTAP/TDAP/TD VACCINES (1 - Tdap) 02/21/1959 PNEUMOCOCCAL VACCINE 50+ (1 of 2 - PCV) 02/21/1959 ZOSTER VACCINE (1 of 2) 02/21/1990 Respiratory Syncytial Virus (RSV) Vaccine Pt: or over 60 yrs (1 - 1-dose 75+ series) 02/21/2015 COVID-19 VACCINE ( - 2023-2 5 season) 2024 INFLUENZA VACCINE (#1) 2024 07/24/2010 DEPRESSION SCREENING 09/23/2024 HEPATITIS B VACCINE Aged Out No longe r eligible based on patient's age to complete this topic HIB VACCINE Aged Out No longer eligi ble based on patient's age to complete this topic HPV VACCINE Aged Out No longer eligi ble based on patient's age to complete this topic MENINGOCOCCAL (Group B) VACCINE Aged Out No longer eligible based on patient's age to complete this topic MENINGOCOCCAL VACCINE Aged Out No charles tiffany eligible based on patient's age to complete this topic Procedures Procedure Name Priority Date/Time Associated Diagnosis Comments MRI THORACIC SPINE WO CONTRAST Routine 10/25/2024 6:20 PM CHIEF SERVICE OBSERVER Imbalance Back pain, unspecified back location, unspecified back pain laterality, unspecified chronicity Cervical spine arthritis MRI LUMBAR SPINE WO CONTRAST Routine 10/25/2024 6:20 PM CHIEF SERVICE OBSERVER Imbalance Back pain, unspecified back location, unspecified back pain laterality, unspecified chronicity Cervical spine arthritis MRI CERVICAL SPINE WO CONTRAST Routine 10/25/2024 6:20 PM CHIEF SERVICE OBSERVER Imbalance Back pain, unspecified back location, unspecified back pain laterality, unspecified chronicity Cervical spine arthritis MRI BRAIN WWO CONTRAST Routine 10/17/2024 6:43 PM CHIEF SERVICE OBSERVER Imbalance Back pain, unspecified back location, unspecified back pain laterality, unspecified chronicity Cervical spine arthritis from Last 3 Months Results * MRI Thoracic Spine Wo Contrast (10/25/2024 6:20 PM CHIEF SERVICE OBSERVER) Anatomical Region Laterality Modality Chest Magnetic Resonan ce 11/01/2024 10:3 8 AM CHIEF SERVICE OBSERVER Impressions 11/01/2024 11:01 AM CHIEF SERVICE OBSERVER IMPRESSION: 1. No acute findings in the thoracic spine. No cord abnormality or cord compression. 2. Mild multilevel degenerative disc disease and mild to moderate multilevel facet as a synovitis in the lumbar spine. No central canal stenosis. > Interpreting Provider: Mikaela Cunningham MD on 11/01/2024 11:01 AM Narrative 11/01/2024 11:01 AM CHIEF SERVICE OBSERVER PROCEDURE: MRI THORACIC SPINE WO CONTRAST, DATE/TIME OF EXAM: 10/25/2024 6:20 PM, LOCATION [facility] INDICATION: R26.89: Imbalance M54.9: Back pain, [...] DATE/TIME OF EXAM: 10/25/2024 6:20 PM, LOCATION [facility] INDICATION: R26.89: Imbalance M54.9: Back pain, [...] Lumbar Spine Wo Contrast (10/25/2024 6:20 PM CHIEF SERVICE OBSERVER) Anatomical Region Laterality Modality Spine Magnetic Resonan ce 11/01/2024 11:0 1 AM CHIEF SERVICE OBSERVER Impressions 11/01/2024 11:09 AM CHIEF SERVICE OBSERVER IMPRESSION: 1. 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 No significant central canal or neuroforamina stenosis. > Interpreting Provider: Mikaela Cunningham MD on 11/01/2024 11:09 AM Narrative 11/01/2024 11:09 AM CHIEF SERVICE OBSERVER PROCEDURE: MRI LUMBAR SPINE WO CONTRAST, DATE/TIME OF EXAM: 10/25/2024 6:20 PM, LOCATION [facility] INDICATION: R26.89: Imbalance M54.9: Back pain, [...] CONTRAST, DATE/TIME OF EXAM: :20 PM, LOCATION [facility] INDICATION: R26.89: Imbalance M54.9: Back pain, [...] Cervical Spine Wo Contrast (10/25/2024 6:20 PM CHIEF SERVICE OBSERVER) Anatomical Region Laterality Modality Pelvis Magnetic Resonan ce 11/01/2024 10:3 1 AM CHIEF SERVICE OBSERVER Impressions 11/01/2024 10:38 AM CHIEF SERVICE OBSERVER IMPRESSION: 1. 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 > Interpreting Provider: Mikaela Cunningham MD on 11/01/2024 10:38 AM Narrative 11/01/2024 10:38 AM CHIEF SERVICE OBSERVER PROCEDURE: MRI CERVICAL SPINE WO CONTRAST, DATE/TIME OF EXAM: 10/25/2024 6:20 PM, LOCATION [facility] INDICATION: R26.89: Imbalance M54.9: Back pain, [...] DATE/TIME OF EXAM: 10/25/2024 6:20 PM, LOCATION [facility] INDICATION: R26.89: Imbalance M54.9: Back pain, [...] MD on 11/01/2024 10:38 AM Natalia Vann MR ORDERABLES * MRI Brain Wwo Contrast (10/17/2024 6:43 PM CHIEF SERVICE OBSERVER) Anatomical Region Laterality Modality Head Magnetic Resonan ce 10/22/2024 4:16 PM CHIEF SERVICE OBSERVER Impressions 10/22/2024 4:28 PM CHIEF SERVICE OBSERVER IMPRESSION: 1. No acute intracranial process. Specifically, [...] 10/22/2024 4:28 PM Narrative 10/22/2024 4:28 PM CHIEF SERVICE OBSERVER PROCEDURE: MRI BRAIN WWO CONTRAST, DATE/TIME OF EXAM: 10/17/2024 6:45 PM, LOCATION [facility] INDICATION: R26.89: Imbalance M54.9: Back pain, [...] CONTRAST, DATE/TIME OF EXAM: 10/17/2024 6:45PM, LOCATION [facility] INDICATION: R26.89: Imbalance M54.9: Back pain, [...] Cunningham MD on 10/22/2024 4:28 PM Natalia Mohamud Soo ABDALLA MR ORDERABLES from Last 3 Months Care Teams Fishing Rod Mechanic Relationship Specialty Start Date End Date Demond Stark MD [address] [place] [address] PCP - General 10/03/15
--- OUTSIDE RECORDS SUMMARY | 2024-11-06 10:17 | XMS_ITS | Patient Health Summary ---
Author Organization [facility] Address [address] [place] [address] Care Team Providers Care Account Service Representative Name Role Phone Demond Stark MD Primary Care Provider [phone] Note from [facility],non-owned Affiliates and Associated Physician Practices is amultiple site organization consisting of ambulatory clinics and hospital sitesin [place], [place], [place] and [place]. This disclosure is being madepursuant to the Care Everywhere program and may not contain all information available regarding this patient. Last updated 18.[facility] Allergies * Diphenhydramine(Other) * Benazepril(Unknown) * Halobetasol(Rash) -Medium Criticality * Quetiapine(Other) * Hmg-Coa-R Inhibitors(Other) -Low Criticality Medications * Be aware that medications may not be up to date on this document. Alwaysverify current medications with the patient. * aspirin EC (Ecotrin) 81 MG tablet Take 2 (two) tablets by mouth once daily * docusate sodium (Docuprene) 100 MG tablet Take 0.5 (one-half) tablet by mouth 2 times daily * famotidine (Pepcid) 20 MG tablet Take 1 (one) tablet by mouth once daily * rivaroxaban (Xarelto) 20 MG tablet Take by mouth daily with food * loratadine (Claritin) 10 MG tablet Take 1 (one) tablet by mouth once daily * levothyroxine (Synthroid) 50 MCG tablet Take 1 (one) tablet by mouth daily before breakfast * pyridoxine (Vitamin B-6) 50 MG tablet Take 1 (one) tablet by mouth once daily * folic acid 400 MCG tablet Take 1 (one) tablet by mouth once daily * polyethylene glycol 3350 (Miralax) 17 GM/SCOOP powder Take 17 (seventeen) g by mouth once daily Ended Medications* carbidopa-levodopa (Sinemet) 25-100 MG tablet(Started 08/28/2024)(Discontinued) Sinemet 25/100mg: Take 0.5 tab at bedtime for 3 days, then 0.5 tab twice daily for 3 days, then 0.5tab morning/noon and 1 tab at bedtime for 3 days, then 1 tab morning/bedtime and 0.5 tab noon for 3days, then 1 tab three times daily. Reasons: Parkinsonian-Like Syndrome, Restless Leg Syndrome 5 refills by 08/28/2025 Active Problems Problem Noted Date Diagnosed Date [...] Comments Blood Pressure 150/69 10/09/2024 10:39 AM IRRIGATION PUMP INSTALLER Pulse 67 10/09/2024 10:39 AM IRRIGATION PUMP INSTALLER Temperature 36.1 C (97 F) 05/24/2016 9:16 AM CDT Respiratory Rate 14 10/10/2015 9:00 PM IRRIGATION PUMP INSTALLER Oxygen Saturation 97% 08/28/2024 10:07 AM IRRIGATION PUMP INSTALLER Inhaled Oxygen Concentration - - Weight 100.2 kg (221 lb) 10/09/2024 10:39 AM IRRIGATION PUMP INSTALLER Height 182.9 cm (6') 11/21/2017 9:32 AM IRRIGATION PUMP INSTALLER Body Mass Index 29.97 11/21/2017 9:32 AM IRRIGATION PUMP INSTALLER Procedures * MRI THORACIC SPINE WO CONTRAST(Performed 10/25/2024) Performed for Imbalance, Back pain, unspecified back location, unspecified back pain laterality, unspecified chronicity, Cervical spine arthritis * MRI LUMBAR SPINE WO CONTRAST(Performed 10/25/2024) Performed for Imbalance, Back pain, unspecified back location, unspecified back pain laterality, unspecified chronicity, Cervical spine arthritis * MRI CERVICAL SPINE WO CONTRAST(Performed 10/25/2024) Performed for Imbalance, Back pain, unspecified back location, unspecified back pain laterality, unspecified chronicity, Cervical spine arthritis * MRI BRAIN WWO CONTRAST(Performed 10/17/2024) Performed for Imbalance, Back pain, unspecified back location, unspecified back pain laterality, unspecified chronicity, Cervical spine arthritis * CT ANGIO BRAIN AND NECK(Performed 06/22/2024) Performed for Imbalance * HEAVY METALS BLOOD QNT 4 PNL (,CD,HG,PB)(Performed 06/05/2024) 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), Hypothyroidism, unspecified type * TSH REFLEX FREE T4(Performed 06/05/2024) 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), Hypothyroidism, unspecified type * COMPREHENSIVE METABOLIC PANEL(Performed 06/05/2024) Performed for Imbalance * CK BLOOD(Performed 06/05/2024) Performed for Imbalance * VITAMIN B1(Performed 06/05/2024) Performed for Imbalance * COPPER BLOOD(Performed 06/05/2024) Performed for Imbalance * VITAMIN B12(Performed 06/05/2024) Performed for B12 deficiency * PROTEIN ELECTROPHORESIS BLOOD(Performed 06/05/2024) Performed for Imbalance * DERMATOPATHOLOGY(Performed 06/26/2023) * DERMATOPATHOLOGY(Performed 06/12/2023) * DERMATOPATHOLOGY(Performed 10/17/2017) * CT HEAD WO CONTRAST(Performed 11/22/2016) * CT HEAD WO CONTRAST(Performed 05/24/2016) * CT HEAD WO CONTRAST(Performed 02/09/2016) * CT HEAD WO CONTRAST(Performed 11/03/2015) * CT BRAIN STROKE(Performed 10/10/2015) * TROPONIN I(Performed 10/10/2015) * COMPREHENSIVE METABOLIC PANEL(Performed 10/10/2015) * CBC W AUTO DIFFERENTIAL(Performed 10/10/2015) * CBC W AUTO DIFFERENTIAL(Performed 10/10/2015) * PTT [facility](Performed 10/10/2015) * PT-INR [facility](Performed 10/10/2015) * DRUG ABUSE PANEL 10-20+ETHANOL URINE NO CONFIRM(Performed 10/10/2015) * URINALYSIS W/MICROSCOPIC NO CULTURE(Performed 10/10/2015) * XR CHEST 2VW(Performed 10/10/2015) * EKG 12-LEAD(Performed 10/10/2015) * CT HEAD WO CONTRAST(Performed 10/04/2015) * TYPE + SCREEN PANEL(Performed 10/03/2015) * COMPREHENSIVE METABOLIC PANEL(Performed 10/03/2015) * PT-INR [facility](Performed 10/03/2015) * PTT [facility](Performed 10/03/2015) * CBC W AUTO DIFFERENTIAL(Performed 10/03/2015) * CBC W AUTO DIFFERENTIAL(Performed 10/03/2015) * PATHOLOGY REVIEW TEG(Performed 10/03/2015) * TEG PLATELET MAPPING(Performed 10/03/2015) * EKG 12-LEAD(Performed 10/03/2015) * DERMATOPATHOLOGY(Performed 12/17/2012) * DERMATOPATHOLOGY(Performed 11/17/2012) Results * MRI Thoracic Spine Wo Contrast (10/25/2024 6:20 PM IRRIGATION PUMP INSTALLER) Anatomical Region Laterality Modality Chest Magnetic Resonan ce 11/01/2024 10:3 8 AM IRRIGATION PUMP INSTALLER Impressions 11/01/2024 11:01 AM IRRIGATION PUMP INSTALLER IMPRESSION: 1. No acute findings in the thoracic spine. No cord abnormality or cord compression. 2. Mild multilevel degenerative disc disease and mild to moderate multilevel facet as a synovitis in the lumbar spine. No central canal stenosis. > Interpreting Provider: Mikaela Cunningham MD on 11/01/2024 11:01 AM Narrative 11/01/2024 11:01 AM IRRIGATION PUMP INSTALLER PROCEDURE: MRI THORACIC SPINE WO CONTRAST, DATE/TIME OF EXAM: 10/25/2024 6:20 PM, LOCATION [facility] INDICATION: R26.89: Imbalance M54.9: Back pain, [...] DATE/TIME OF EXAM: 10/25/2024 6:20 PM, LOCATION [facility] INDICATION: R26.89: Imbalance M54.9: Back pain, [...] Lumbar Spine Wo Contrast (10/25/2024 6:20 PM IRRIGATION PUMP INSTALLER) Anatomical Region Laterality Modality Spine Magnetic Resonan ce 11/01/2024 11:0 1 AM IRRIGATION PUMP INSTALLER Impressions 11/01/2024 11:09 AM IRRIGATION PUMP INSTALLER IMPRESSION: 1. 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 No significant central canal or neuroforamina stenosis. > Interpreting Provider: Mikaela Cunningham MD on 11/01/2024 11:09 AM Narrative 11/01/2024 11:09 AM IRRIGATION PUMP INSTALLER PROCEDURE: MRI LUMBAR SPINE WO CONTRAST, DATE/TIME OF EXAM: 10/25/2024 6:20 PM, LOCATION [facility] INDICATION: R26.89: Imbalance M54.9: Back pain, [...] LUMBAR SPINE WO CONTRAST, DATE/TIME OF EXAM: 56:20 PM, LOCATION [facility] INDICATION: R26.89: Imbalance M54.9: Back pain, [...] Cervical Spine Wo Contrast (10/25/2024 6:20 PM IRRIGATION PUMP INSTALLER) Anatomical Region Laterality Modality Pelvis Magnetic Resonan ce 11/01/2024 10:3 1 AM IRRIGATION PUMP INSTALLER Impressions 11/01/2024 10:38 AM IRRIGATION PUMP INSTALLER IMPRESSION: 1. 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 > Interpreting Provider: Mikaela Cunningham MD on 11/01/2024 10:38 AM Narrative 11/01/2024 10:38 AM IRRIGATION PUMP INSTALLER PROCEDURE: MRI CERVICAL SPINE WO CONTRAST, DATE/TIME OF EXAM: 10/25/2024 6:20 PM, LOCATION [facility] INDICATION: R26.89: Imbalance M54.9: Back pain, [...] DATE/TIME OF EXAM: 10/25/2024 6:20 PM, LOCATION [facility] INDICATION: R26.89: Imbalance M54.9: Back pain, [...] MRI Brain Wwo Contrast (10/17/2024 6:43 PM IRRIGATION PUMP INSTALLER) Anatomical Region Laterality Modality Head Magnetic Resonan ce 10/22/2024 4:16 PM IRRIGATION PUMP INSTALLER Impressions 10/22/2024 4:28 PM IRRIGATION PUMP INSTALLER IMPRESSION: 1. No acute intracranial process. Specifically, [...] 10/22/2024 4:28 PM Narrative 10/22/2024 4:28 PM IRRIGATION PUMP INSTALLER PROCEDURE: MRI BRAIN WWO CONTRAST, DATE/TIME OF EXAM: 10/17/2024 6:45 PM, LOCATION [facility] INDICATION: R26.89: Imbalance M54.9: Back pain, [...] CONTRAST, DATE/TIME OF EXAM: 10/17/2024 6:45PM, LOCATION [facility] INDICATION: R26.89: Imbalance M54.9: Back pain, [...] Cunningham MD on 10/22/2024 4:28 PM Natalia Cade Maciasminerva DO MR ORDERABLES * CT Angio Brain And Neck (06/22/2024 7:47 AM CDT) Anatomical Region Laterality Modality Head Computed Tomogra phy 06/22/2024 8:00 AM CDT Impressions 06/22/2024 1:39 PM CDT IMPRESSION: 1.No acute intracranial hemorrhage. 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 3.No large arterial occlusions or significant stenoses identified in the head or neck. 4.Additional pertinent and miscellaneous findings as detailed above. Viz.AI was used for large vessel occlusion detection. > Dictated by Morro Molina MD (Alining Inspector) Jena Verduzco MD have personally reviewed and interpreted this examination/study. > Interpreting Provider: Jena Valderrama MD on 06/22/2024 1:39 PM Narrative 06/22/2024 1:39 PM CDT PROCEDURE: CT ANGIO BRAIN AND NECK, DATE/TIME OF EXAM: 06/22/2024 7:48 AM, LOCATION [facility] INDICATION: R26.89: Imbalance ADDITIONAL CLINICAL INFORMATION: Ordering Provider Reason For Exam: Falls, unsteady gait. MRI [facility] showing small vessel disease Technologist Note: Does the patient have a history of renal insufficiency?->No Additional: None. EXAMINATION: 1. Computed tomographic (CT) angiography of the head without and with contrast 2. CT angiography of the neck with contrast CONTRAST: IOPAMIDOL 76 % IV SOLN:100 mL TECHNIQUE: CT of the head was performed without contrast according to standard protocol. Then CT angiography of the head and neck was obtained after the uneventful administration of 100 mL Isovue-370 intravenous contrast. Three dimensional postprocessing was performed by the technologist and sent to the workstation for review. Stenosis measurements are based on NASCET criteria. CT dose reduction technique was used, including Automated Exposure Control. COMPARISON: No prior study is available for comparison at the time of this dictation. FINDINGS: Non-angiographic findings: The images are degraded due to motion and streak artifacts. Within this limitation: Accounting for the presence of motion artifact which reduces the sensitivity to detect subtle intracranial hemorrhage, no distinct acute intra- or extra-axial fluid collections are identified. There is mild cerebral volume loss with associated ex vacuo ventricular dilatation. The basilar cisterns are patent. No mass effect or midline shift is seen. The florez-white matter differentiation is obscured by motion artifact. Periventricular white matter hypoattenuation is indicative of chronic small vessel ischemic disease. There is vascular calcification of the carotid siphons as well as the V4 segments of the vertebral arteries and basilar artery. The visualized portions of the orbits appear grossly unremarkable. Senile scleral plaques are noted. There is mild paranasal sinus disease. Artifacts from the dental amalgam limit evaluation of the oral cavity. Trace opacification of a few dependent right mastoid air cells. The remaining mastoid air cells appear grossly clear appear normal. No acute fracture is identified. There are moderate degenerative changes of the cervical spine. There are scattered dental caries and periapical lucencies. Artifacts from the dental amalgam limit evaluation of the oral cavity. Torus mandibularis are noted. At least moderate spinal canal stenosis is noted at C3-C4. The patient is status post CABG. Median sternotomy wires are noted.. Borderline dilated main pulmonary artery and dilated left pulmonary artery branch, a common finding with pulmonary hypertension. Mild scarring in the lung apices. Suggestion of background hyperinflation and increased interstitial septal thickening. Angiographic findings: There is atherosclerotic disease of the aortic arch. The configuration of the brachiocephalic vessels is typical. There is atherosclerotic calcification of the innominate and subclavian arteries. There is atherosclerotic disease of the right carotid bifurcation and origin of the right internal carotid artery with less than 50 percent focal stenosis by NASCET criteria. Calcified and prominent soft plaques are noted. The right common and internal carotid arteries otherwise appear normal. There is atherosclerotic disease of the left carotid bifurcation and origin of the left internal carotid artery with less than 50 percent focal stenosis by NASCET criteria. Calcified and soft plaques are noted. The left common and internal carotid arteries otherwise appear normal. The left vertebral artery is dominant. Right vertebral artery is small in caliber. There is atherosclerotic disease involving the cervical vertebral arteries without significant focal stenosis. There is atherosclerotic disease involving the distal internal carotid arteries with mild to moderate bilateral stenoses. The anterior and middle cerebral arteries appear patent. The left vertebral artery is dominant. The right vertebral artery is a small in caliber, unclear with the tip terminating in the right iCAD. There is atherosclerotic disease involving the distal left vertebral artery without high-grade focal stenosis. The basilar artery and posterior cerebral arteries appear normal with origin of the right posterior cerebral artery. No aneurysms, vascular occlusions, or hemodynamically significant intracranial stenoses are identified. Procedure Note Jena Valderrama MD - 06/22/2024 PROCEDURE: CT ANGIO BRAIN AND NECK, DATE/TIME OF EXAM: 06/22/2024 7:48AM, LOCATION [facility] INDICATION: R26.89: Imbalance ADDITIONAL CLINICAL INFORMATION: Ordering Provider Reason For Exam: Falls, unsteady gait. MRI [facility] small vessel disease Technologist Note: Does the patient have a history of renal insufficiency?->No Additional: None. EXAMINATION: 1. Computed tomographic (CT) angiography of the head without and with contrast 2. CT angiography of the neck with contrast CONTRAST: IOPAMIDOL 76 % IV SOLN:100 mL TECHNIQUE: CT of the head was performed without contrast according to standard protocol. Then CT angiography of the head and neck was obtained after the uneventful administration of 100 mL Isovue-370 intravenous contrast. Three dimensional postprocessing was performed by the technologist and sent to the workstation for review. Stenosismeasurements are based on NASCET criteria. CT dose reduction technique was used, including Automated Exposure Control. COMPARISON: No prior study is available for comparison at the time ofthis dictation. FINDINGS: Non-angiographic findings: The images are degraded due to motion andstreak artifacts. Within this limitation: Accounting for the presence of motion artifact which reduces the sensitivity to detect subtle intracranial hemorrhage, no distinct acute intra- or extra-axial fluid collections are identified. There is mild cerebral volume loss with associated ex vacuo ventricular dilatation.The basilar cisterns are patent. No mass effect or midline shift is seen.The florez-white matter differentiation is obscured by motion artifact. Periventricular white matter hypoattenuation is indicative of chronicsmall vessel ischemic disease. There is vascular calcification of the carotid siphons as well as the V4 segments of the vertebral arteries and basilar artery. The visualized portions of the orbits appear grosslyunremarkable. Senile scleral plaques are noted. There is mild paranasal sinus disease. Artifacts from the dental amalgam limit evaluation of the oral cavity. Trace opacification of a few dependent right mastoid air cells. The remaining mastoid air cells appear grossly clear appear normal. No acute fracture is identified. There are moderate degenerative changes of the cervical spine. There are scattered dental caries and periapical lucencies. Artifacts from thedental amalgam limit evaluation of the oral cavity. Torus mandibularis arenoted. At least moderate spinal canal stenosis is noted at C3-C4. The patientis status post CABG. Median sternotomy wires are noted.. Borderline dilated main pulmonary artery and dilated left pulmonary artery branch, a common finding with pulmonary hypertension. Mild scarring in the lung apices. Suggestion of background hyperinflation and increased interstitialseptal thickening. Angiographic findings: There is atherosclerotic disease of the aortic arch. The configurationof the brachiocephalic vessels is typical. There is atherosclerotic calcification of the innominate and subclavian arteries. There is atherosclerotic disease of the right carotid bifurcation and origin ofthe right internal carotid artery with less than 50 percent focal stenosisby NASCET criteria. Calcified and prominent soft plaques are noted. Theright common and internal carotid arteries otherwise appear normal. There is atherosclerotic disease of the left carotid bifurcation and origin ofthe left internal carotid artery with less than 50 percent focal stenosis by NASCET criteria. Calcified and soft plaques are noted. The left commonand internal carotid arteries otherwise appear normal. The left vertebral artery is dominant. Right vertebral artery is small in caliber. There is atherosclerotic disease involving the cervical vertebral arteries without significantfocal stenosis. There is atherosclerotic disease involving the distal internal carotid arteries with mild to moderate bilateral stenoses. The anterior andmiddle cerebral arteries appear patent. The left vertebral artery is dominant.The right vertebral artery is a small in caliber, unclear with the tip terminating in the right iCAD. There is atherosclerotic diseaseinvolving the distal left vertebral artery without high-grade focal stenosis. The basilar artery and posterior cerebral arteries appear normal with origin of the right posterior cerebral artery. No aneurysms, vascular occlusions, or hemodynamically significant intracranial stenoses are identified. IMPRESSION: 1.No acute intracranial hemorrhage. 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 3.No large arterial occlusions or significant stenoses identified in the head or neck. 4.Additional pertinent and miscellaneous findings as detailed above. Viz.AI was used for large vessel occlusion detection. > Dictated by Morro Molina MD (Alining Inspector) IJena MD have personally reviewed and interpretedthis examination/study. > Interpreting Provider: Jena Valderrama MD on 06/22/2024 1:39 PM Yasir Lacy MD CT ORDERABLES * HEAVY METALS BLOOD QNT 4 PNL (,CD,HG,PB) (06/05/2024 2:46 PM CDT) [facility] Lead <2.0 <=4.9 ug/dL 06/07/2024 7:00 AM CDT [facility] ([facility] Comment: INTERPRETIVE INFORMATION: Lead, Blood (Venous) Analysis performed by Inductively Coupled Plasma-Mass Spectrometry (ICP-MS). Elevated results may be due to skin or collection-related contamination, including the use of a noncertified lead-free tube. If contamination concerns exist due to elevated levels of blood lead, confirmation with a second specimen collected in a certified lead-free tube is recommended. Information sources for blood lead reference intervals and interpretive comments include the CDC's Childhood Lead Poisoning Prevention: Recommended Actions Based on Blood Lead Level and the Adult Blood Lead Epidemiology and Surveillance: Reference Blood Lead Levels (BLLs) for Adults in the [place] Thresholds and time intervals for retesting, medical evaluation, and response vary by state and regulatory body. Contact your State Department of Health and/or applicable regulatory agency for specific guidance on medical management recommendations. This test was developed and its performance characteristics determined by [facility]. It has not been cleared or approved by the U.S. Food and Drug Administration. This test was performed in a CLIA-certified laboratory and is intended for clinical purposes. Group Concentration Comment Children 3.5-19.9 ug/dL Children under the age of 6 years are the most vulnerable to the harmful effects of lead exposure. Environmental investigation and exposure history to identify potential sources of lead. Biological and nutritional monitoring are recommended. Follow-up blood lead monitoring is recommended. 20-44.9 ug/dL Lead hazard reduction and prompt medical evaluation are recommended. Contact a Pediatric Environmental Health Specialty Unit or poison control center for guidance. Greater than Critical. Immediate medical 44.9 ug/dL evaluation, including detailed neurological exam is recommended. Consider chelation therapy when symptoms of lead toxicity are present. Contact a Pediatric Environmental Health Specialty Unit or poison control center for assistance. Adult 5-19.9 ug/dL Medical removal is recommended for women or those who are trying or may become . Adverse health effects are possible. Reduced lead exposure and increased blood lead monitoring are recommended. 20-69.9 ug/dL Adverse health effects are indicated. Medical removal from lead exposure is required by OSHA if blood lead level exceeds 50 ug/dL. Prompt medical evaluation is recommended. Greater than Critical. Immediate medical 69.9 ug/dL evaluation is recommended. Consider chelation therapy when symptoms of lead toxicity are present. Arsenic <10.0 <=12.0 ug/L 06/07/2024 7:00 AM CDT [facility] ([facility]) Comment: INTERPRETIVE INFORMATION: Arsenic, Blood Elevated results may be due to skin or collection-related contamination, including the use of a noncertified metal-free collection/transport tube. If contamination concerns exist due to elevated levels of blood arsenic, confirmation with a second specimen collected in a certified metal-free tube is recommended. Potentially toxic ranges for blood arsenic: Greater than or equal to 600 ug/L. Blood arsenic is for the detection of recent exposure poisoning only. Blood arsenic levels in healthy subjects vary considerably with exposure to arsenic in the diet and the environment. A 24-hour urine arsenic is useful for the detection of chronic exposure. This test was developed and its performance characteristics determined by [facility]. It has not been cleared or approved by the [place] Food and Drug Administration. This test was performed in a CLIA certified laboratory and is intended for clinical purposes. Cadmium <1.0 <=5.0 ug/L 06/07/2024 7:00 AM CDT [facility] ([facility]) Comment: INTERPRETATION INFORMATION: Cadmium, Blood Elevated results may be due to skin or collection-related contamination, including the use of a noncertified metal-free collection/transport tube. If contamination concerns exist due to elevated levels of blood cadmium, confirmation with a second specimen collected in a certified metal-free tube is recommended. Blood cadmium levels can be used to monitor acute toxicity and in combination with cadmium urine and B-2 microglobulin is the preferred method for monitoring occupational exposure. Symptoms associated with cadmium toxicity vary based upon route of exposure and may include tubular proteinuria, fever, headache, dyspnea, chest pain, conjunctivitis, rhinitis, sore throat and cough. Ingestion of cadmium in high concentration may cause vomiting, diarrhea, salivation, cramps, and abdominal pain. This test was developed and its performance characteristics determined by [employer]. It has not been cleared or approved by the [place] Food and Drug Administration. This test was performed in a CLIA certified laboratory and is intended for clinical purposes. Mercury <2.5 <=10.0 ug/L 06/07/2024 7:00 AM CDT [facility] [employer] ([facility]) Comment: INTERPRETIVE INFORMATION: Mercury, Blood Elevated results may be due to skin or collection-related contamination, including the use of a noncertified metal-free collection/transport tube. If contamination concerns exist due to elevated levels of blood mercury, confirmation with a second specimen collected in a certified metal-free tube is recommended. Blood mercury levels predominantly reflect recent exposure and are most useful in the diagnosis of acute poisoning as blood mercury concentrations rise sharply and fall quickly over several days after ingestion. Blood concentrations in unexposed individuals rarely exceed 20 ug/L. The provided reference interval relates to inorganic mercury concentrations. Dietary and non-occupational exposure to organic mercury forms may contribute to an elevated total mercury result. Clinical presentation after toxic exposure to organic mercury may include dysarthria, ataxia and constricted vision lindsey with mercury blood concentrations from 20 to 50 ug/L. This test was developed and its performance characteristics determined by [employer]. It has not been cleared or approved by the [place] Food and Drug Administration. This test was performed in a CLIA certified laboratory and is intended for clinical purposes. Performed By: [address] [address] [employer] Product Demonstrator: Trent Franco MD, PhD CLIA Number: [id number] Blood BLOOD SPECIMEN / Unknown Lab Venipuncture / Unknown 06/05/2024 2:46 PM CDT 06/05/2024 4:08 PM CDT Yasir Lacy MD LAB - CHEMISTRY SANDOVAL [place] Performing Organization Address City/[facility]/ZIP Co de Phone Number [address] [address] * TSH REFLEX FREE T4 (06/05/2024 2:46 PM CDT) TSH 3.358 0.350 - 4.940 uIU/mL 06/05/2024 4:11 PM CDT [facility] Blood BLOOD SPECIMEN / Unknown Lab Venipuncture / Unknown 06/05/2024 2:46 PM CDT 06/05/2024 3:07 PM CDT Yasir Lacy MD LAB - CHEMISTRY SANDOVAL [place] [address] [address], [facility] [phone] * (ABNORMAL) VITAMIN B1 (06/05/2024 2:46 PM CDT) Vitamin B1 Whole Blood 197(H) 70 - 180 nmol/L 06/08/2024 7:33 AM CDT [facility] ([facility]) Comment: INTERPRETIVE INFORMATION: Vitamin B1, Whole Blood This assay measures the concentration of thiamine diphosphate (TDP), the primary active form of vitamin B1. Approximately 90 percent of vitamin B1 present in whole blood is TDP. Thiamine and thiamine monophosphate, which comprise the remaining 10 percent, are not measured. This test was developed and its performance characteristics determined by [employer]. It has not been cleared or approved by the US Food and Drug Administration. This test was performed in a CLIA certified laboratory and is intended for clinical purposes. Performed By: [facility] [employer] [address] [place] [address] Event Specialist Product Demonstrator: Trent Franco MD, PhD CLIA Number: [id number] Blood BLOOD SPECIMEN / Unknown Lab Venipuncture / Unknown 06/05/2024 2:46 PM CDT 06/05/2024 4:05 PM CDT Yasir Lacy MD LAB - CHEMISTRY SANDOVAL [place] Performing Organization Address [facility] de Phone Number [facility] ([facility]) [address] [place] [address] * COPPER BLOOD (06/05/2024 2:46 PM CDT) [facility] Copper 119.7 70.0 - 140.0 ug/dL 06/06/2024 10:38 PM CDT [facility] ([facility]) Comment: INTERPRETIVE INFORMATION: Copper, Serum or Plasma Elevated results may be due to skin or collection-related contamination, including the use of a noncertified metal-free collection/transport tube. If contamination concerns exist due to elevated levels of serum/plasma copper, confirmation with a second specimen collected in a certified metal-free tube is recommended. Serum copper may be elevated with infection, inflammation, stress, and copper supplementation. In females, elevated copper may also be caused by oral contraceptives and (concentrations may be elevated up to 3 times normal during the third trimester). This test was developed and its performance characteristics determined by [employer]. It has not been cleared or approved by the [place] Food and Drug Administration. This test was performed in a CLIA certified laboratory and is intended for clinical purposes. Performed By: [employer] [address] [place] [address] Event Specialist Product Demonstrator: Trent Franco MD, PhD CLIA Number: [id number] Blood BLOOD SPECIMEN / Unknown Lab Venipuncture / Unknown 06/05/2024 2:46 PM CDT 06/05/2024 4:08 PM CDT Yasir Lacy MD LAB - CHEMISTRY SANDOVAL [place] [facility] ([facility]) [address] [place] [address], [facility] * (ABNORMAL) COMPREHENSIVE METABOLIC PANEL (06/05/2024 2:46 PM T) Only the most recent of3 resultswithin the time period is included. BUN 27(H) 7 - 26 mg/dL 06/05/2024 3:36 PM [facility] Creatinine 1.25(H) 0.71 - 1.16 mg/dL 06/05/2024 3:36 PM [facility] Sodium 143 136 - 145 mmol/L 06/05/2024 3:36 PM [facility] Potassium 3.9 3.5 - 4.5 mmol/L 06/05/2024 3:36 PM [facility] Chloride 110(H) 98 - 107 mmol/L 06/05/2024 3:36 PM [facility] CO2 28 22 - 29 mmol/L 06/05/2024 3:36 PM [facility] Glucose 95 70 - 115 mg/dL 06/05/2024 3:36 PM [facility] Calcium 9.5 8.4 - 10.2 mg/dL 06/05/2024 3:36 PM [facility] Protein Total 7.5 6.0 - 8.3 g/dL 06/05/2024 3:36 PM [facility] Albumin 4.1 3.4 - 5.0 g/dL 06/05/2024 3:36 PM [facility] Bilirubin Total 0.7 0.2 - 1.2 mg/dL 06/05/2024 3:36 PM [facility] Alkaline Phosphatase 91 40 - 150 U/L 06/05/2024 3:36 PM [facility] ALT 13 5 - 55 U/L 06/05/2024 3:36 PM [facility] AST 19 5 - 34 U/L 06/05/2024 3:36 PM [facility] Anion Gap 5(L) 6 - 16 06/05/2024 3:36 PM [facility] BUN/Creatinine Ratio 22 7 - 23 06/05/2024 3:36 PM [facility] Osmolality Calculated 301(H) 275 - 295 mOsm/kg 06/05/2024 3:36 PM CDT [facility] Albumin/Globulin Ratio 1.2 1.1 - 2.3 06/05/2024 3:36 PM CDT [facility] eGFR by CKD-EPI 57(L) >=90 mL/min/1.7 3 m2 06/05/2024 3:36 PM CDT [facility] Blood BLOOD SPECIMEN / Unknown Lab Venipuncture / Unknown 06/05/2024 2:46 PM CDT 06/05/2024 3:07 PM CDT Yasir Lacy MD LAB - CHEMISTRY ORDRobert QUEV[place]O [facility] [address] [place] [address], [place] [phone] * CK BLOOD (06/05/2024 2:46 PM CDT) CK Total 54 30 - 200 U/L 06/05/2024 3:36 PM CDT [facility] Blood BLOOD SPECIMEN / Unknown Lab Venipuncture / Unknown 06/05/2024 2:46 PM CDT 06/05/2024 3:07 PM CDT Yasir Lacy MD LAB - CHEMISTRY SANDOVAL [place] [address] [address], [place] [phone] * (ABNORMAL) VITAMIN B12 (06/05/2024 2:46 PM CDT) Vitamin B12 >2,000(H) 213 - 816 pg/mL 06/05/2024 4:10 PM CDT [facility] Blood BLOOD SPECIMEN / Unknown Lab Venipuncture / Unknown 06/05/2024 2:46 PM CDT 06/05/2024 3:07 PM CDT Yasir Lacy MD LAB - CHEMISTRY SANDOVAL [place] Performing Organization Address City[facility]/ZIP Co de Phone Number [place] [phone] [place] [address], [facility] [phone] * PROTEIN ELECTROPHORESIS BLOOD (06/05/2024 2:46 PM CDT) Interpretation Serum PE Normal Pattern Normal Pattern 06/09/2024 1:48 PM CDT [facility] Comment: Serum capillary electrophoresis shows characteristic bands corresponding to albumin, alpha and beta globulins, and polyclonal immunoglobulins. No monoclonal immunoglobulins detected. Non-secretory myeloma (NSM), light chain-only myeloma, and other disorders associated with light chains cannot be excluded based on this result. If clinical concern for plasma cell disorder, consider checking serum free light chain measurements (and possibly urine immunofixation) for more complete evaluation. These results were interpreted by the attending physician: Noreen Tinsley MD Attending Physician - Transfusion Medicine and Clinical Pathology *The electrophoresis pattern and the interpretation have been reviewed and verified by the teaching physician. Protein Total 7.1 6.0 - 8.3 g/dL 06/09/2024 1:48 PM CDT [facility] Albumin 4.1 3.3 - 5.6 g/dL 06/09/2024 1:48 PM CDT [facility] Alpha-1 Globulins 0.3 0.2 - 0.4 g/dL 06/09/2024 1:48 PM CDT [facility] Alpha-2 Globulins 0.7 0.5 - 1.0 g/dL 06/09/2024 1:48 PM CDT [facility] Beta Globulins 0.8 0.6 - 1.1 g/dL 06/09/2024 1:48 PM CDT [facility] Gamma Globulins 1.2 0.6 - 1.6 g/dL 06/09/2024 1:48 PM CDT [facility] Blood BLOOD SPECIMEN / Unknown Lab Venipuncture / Unknown 06/05/2024 2:46 PM CDT 06/05/2024 3:18 PM CDT Yasir Lacy MD LAB - CHEMISTRY SANDOVAL [place] [facility] [address] [place] [address] [phone] * DERMATOPATHOLOGY (06/26/2023 12:00 AM CDT) Only the most recent of5 resultswithin the time period is included. Case Report Dermatopathology Report Case: [id number] Authorizing Provider: Jaxon Anaya MD Collected: 06/26/2023 12:00 AM Ordering Location: [facility] D[facility] Lab Received: 06/28/2023 09:48 AM Pathologist: Mackenzie Ureña MD Specimen: Skin, right paraspinal mid back 4:58 PM CDT DERMATOPATHOLOGY LABORATORY Final Diagnosis Specimen A. SKIN, right paraspinal mid back: EPIDERMOID CYST WITH EVIDENCE OF RUPTURE (L72.0) 4:58 PM CDT DERMATOPATHOLOGY LABORATORY Clinical History R/O Cyst 4:58 PM CDT DERMATOPATHOLOGY LABORATORY Gross Description Specimen A: Received is one formalin filled container labeled with the patient's name and designated right paraspinal mid back.The specimen consists of an ellipse measuring [id number] mm and is oriented with the suture/notch at the 12 o'clock position labeled on the requisition as notch at 12 o'clock. The 12 to 6 o'clock margin is inked green. The 6 o'clock to 12 o'clock margin is inked black. The 12 o'clock tip is submitted in cassette 1. The 6 o'clock tip is submitted in cassette 2. The remainder of the ellipse is serially sectioned and submitted in cassettes 3 - 9. Jar 0. 4:58 PM CDT DERMATOPATHOLOGY LABORATORY Microscopic Description Specimen A. SKIN, right paraspinal mid back: Within the dermis, there is a space lined by epithelium that resembles normal epidermis and the infundibular portion of the hair follicle. Surrounding this is an infiltrate with neutrophils, histiocytes, and multinucleated giant cells. 4:58 PM CDT DERMATOPATHOLOGY LABORATORY Disclaimer An external and internal positive and negative controls are appropriate for the histochemical, immunohistochemical and immunofluorescence stain(s) in this case (if any), except where stated explicitly. The performance characteristics of the stain(s) cited in this report were developed and its performance characteristic determined by the Dermatopathology Laboratory at [facility], directed by Dr. Georgina Young. These tests need not be, and therefore are not, approved by the [place] Food and Drug Administration. The tests are used for clinical purposes. Billing Codes Specimen Charges Stain Charges 81974 1 3 4:58 PM CDT DERMATOPATHOLOGY LABORATORY Embedded Images 3 4:58 PM CDT DERMATOPATHOLOGY LABORATORY Pathology/Cytolog y TISSUE SPECIMEN FROM SKIN / Unknown 06/26/2023 06/28/2023 9:48 AM CDT Jaxon Anaya MD LAB - PATHOLOGY/CYTO LOGY ORDERABLES DERMATOPATHOLOGY LABORATORY [facility] Department of Dermatology [address] [phone] * CT HEAD WO CONTRAST (11/22/2016 8:20 AM IRRIGATION PUMP INSTALLER) Only the most recent of5 resultswithin the time period is included. Anatomical Region Laterality Modality Head Other Impressions 11/22/2016 8:51 AM IRRIGATION PUMP INSTALLER IMPRESSION: 1. 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 This report was approved by Moises Barrera M.D. on 11/22/2016 8:46 AM . I, Dr. ROSALIA MOURA M.D. have personally reviewed and interpreted this examination/study. This report was electronically signed by ROSALIA MOURA M.D. on 11/22/2016 8:51 AM . Narrative 11/22/2016 8:51 AM IRRIGATION PUMP INSTALLER EXAMINATION: Computed tomography (CT) of the head without contrast HISTORY: Subdural hematoma TECHNIQUE: CT of the head was performed without contrast according to standard protocol. FINDINGS: Comparison is made to the prior examination 05/24/2016. A thin isoattenuating chronic right cerebral convexity subdural hematoma is minimally decreased in size, now measuring 4 mm in maximum thickness (previously 5 mm). No acute intra or extra-axial collections are identified. The ventricles are of normal size, shape, and morphology. The basilar cisterns are patent. No significant mass effect or midline shift is seen. The florez-white matter differentiation is normal. Periventricular white matter hypoattenuation is indicative of chronic small vessel ischemic disease. There is vascular calcification of the carotid siphons. Other than mild ethmoid and frontal sinus mucosal thickening, the visualized portions of the orbits, paranasal sinuses, and mastoids appear normal. No acute fracture is identified. Procedure Note Rosalia Moura MD - 12/20/2017 EXAMINATION: Computed tomography (CT) of the head without contrast HISTORY: Subdural hematoma TECHNIQUE: CT of the head was performed without contrast according tostandard protocol. FINDINGS: Comparison is made to the prior examination 05/24/2016. A thin isoattenuating chronic right cerebral convexity subdural hematomais minimally decreased in size, now measuring 4 mm in maximum thickness(previously 5 mm). No acute intra or extra-axial collections areidentified. The ventricles are of normal size, shape, and morphology. The basilar cisterns are patent. Nosignificant mass effect or midline shift is seen. The florez-white matterdifferentiation is normal. Periventricular white matter hypoattenuation isindicative of chronic small vessel ischemic disease. There is vascular calcification of the carotid siphons.Other than mild ethmoid and frontal sinus mucosal thickening, thevisualized portions of the orbits, paranasal sinuses, and mastoids appearnormal. No acute fracture is identified. IMPRESSION IMPRESSION: 1. Minimal interval decrease in right cerebral convexity chronic subduralhematoma without significant mass effect. This report was approved by Moises Barrera M.D. on 11/22/2016 8:46 AM. I, Dr. ROSALIA MOURA M.D. have personally reviewed and interpreted thisexamination/study. This report was electronically signed by ROSALIA MOURA M.D. on 11/22/20168:51 AM . Benjamin Perry MD CT ORDERABLES * CT BRAIN STROKE PROTOCOL (10/10/2015 7:52 PM IRRIGATION PUMP INSTALLER) Anatomical Region Laterality Modality Head Other Impressions 10/11/2015 6:20 AM IRRIGATION PUMP INSTALLER IMPRESSION: 1. Unchanged mixed attenuation cerebral convexity subdural hematomas without internal brain herniation. Preliminary fundus relayed to Dr. Cueto at 9:03 PM on 10 October 2015 by Nick Steele. This report was electronically signed by ROSALIA MOURA M.D. on 10/11/2015 6:20 AM . Narrative 10/11/2015 6:20 AM IRRIGATION PUMP INSTALLER EXAMINATION: Computed tomography (CT) of the head without contrast HISTORY: Numbness left side of arm TECHNIQUE: CT of the head was performed without contrast according to standard protocol. FINDINGS: Comparison is made with a study from 04 October 2015. Bilateral mixed attenuation cerebral convexity subdural hematomas measuring up to 14 mm in depth on the right and 8 mm on the left are unchanged. The ventricles are nondilated. The basilar cisterns are patent. No significant mass effect or midline shift is seen. The florez-white matter differentiation is normal. There is vascular calcification of the carotid siphons. Other than mild paranasal sinus disease, the visualized portions of the orbits, paranasal sinuses, and mastoids appear normal. No acute fracture is identified. Procedure Note Rosalia Moura MD - 12/21/2017 EXAMINATION: Computed tomography (CT) of the head without contrast HISTORY: Numbness left side of arm TECHNIQUE: CT of the head was performed without contrast according tostandard protocol. FINDINGS: Comparison is made with a study from 04 October 2015. Bilateral mixed attenuation cerebral convexity subdural hematomasmeasuring up to 14 mm in depth on the right and 8 mm on the left areunchanged. The ventricles are nondilated. The basilar cisterns are patent.No significant mass effect or midline shift is seen. The florez-white matter differentiation is normal. There isvascular calcification of the carotid siphons. Other than mild paranasalsinus disease, the visualized portions of the orbits, paranasal sinuses,and mastoids appear normal. No acute fracture is identified. IMPRESSION IMPRESSION: 1. Unchanged mixed attenuation cerebral convexity subdural hematomaswithout internal brain herniation. Preliminary fundus relayed to Dr. Cueto at 9:03 PM on 10 October 2015 byNick Steele. This report was electronically signed by ROSALIA MOURA M.D. on 10/11/20156:20 AM . Foreign Chisholm MD CT ORDERABLES * PTT [facility] (10/10/2015 7:24 PM IRRIGATION PUMP INSTALLER) Only the most recent of2 resultswithin the time period is included. APTT 29.9 23.0 - 38.4 Seconds [facility] Comment:Suggested therapeuti c range for full dose I.V. heparin therapy for venous thromboembolism is 66.0-91.0 seconds. Blood specimen (specimen) BLOOD SPECIMEN / Unknown 10/10/2015 7:24 PM IRRIGATION PUMP INSTALLER 10/10/2015 7:33 PM IRRIGATION PUMP INSTALLER Narrative [facility] - 10/10/2015 7:48 PM IRRIGATION PUMP INSTALLER Is patient on Heparin, Argatroban or Dabigatran?->N Foreign Chisholm MD LAB - COAGULATION OR DERABLES Performing Organization Address [facility] de Phone Number [address] [phone] * PT-INR [facility] (10/10/2015 7:24 PM IRRIGATION PUMP INSTALLER) Only the most recent of2 resultswithin the time period is included. PT 13.0 12.1 - 14.8 Seconds [facility] INR 1.0 See Comment [facility] Comment: Suggested therapeutic range for low-intensity coumadin therapy for venous thromboembolism prophylaxis is an INR of 2.0-3.0. For high risk patients (Mitral Valve Prosthesis, Atrial Fibrillation, history of TIA/stroke), suggested prophylactic therapeutic range is an INR of 2.5-3.5. Blood specimen (specimen) BLOOD SPECIMEN / Unknown 10/10/2015 7:24 PM IRRIGATION PUMP INSTALLER 10/10/2015 7:33 PM IRRIGATION PUMP INSTALLER Narrative [facility] - 10/10/2015 7:47 PM IRRIGATION PUMP INSTALLER Is patient on Heparin, Argatroban or Dabigatran?->N Foreign Chisholm MD LAB - COAGULATION OR DERABLES Performing Organization Address [facility] Co de Phone Number [address] [phone] * TROPONIN I (10/10/2015 7:24 PM IRRIGATION PUMP INSTALLER) Troponin I <0.010 <0.032 ng/mL [facility] Blood specimen (specimen) BLOOD SPECIMEN / Unknown 10/10/2015 7:24 PM IRRIGATION PUMP INSTALLER 10/10/2015 10:21 PM IRRIGATION PUMP INSTALLER Angelia Armendariz MD LAB - CHEMISTRY ORDRobert [place] Performing Organization Address [facility] Co de Phone Number [facility] [address] [phone] * CBC W AUTO DIFFERENTIAL (10/10/2015 7:24 PM IRRIGATION PUMP INSTALLER) Only the most recent of4 resultswithin the time period is included. Blood specimen (specimen) BLOOD SPECIMEN / Unknown 10/10/2015 7:24 PM IRRIGATION PUMP INSTALLER Narrative [facility] - 10/10/2015 7:59 PM IRRIGATION PUMP INSTALLER The following orders were created for panel order CBC w Differential. Procedure Abnormality Status --------- ------ CBC WITH DIFFERENTIAL[[id number]] Normal Final result Please view results for these tests on the individual orders. Foreign Chisholm MD LAB - HEMATOLOGY ORD MATT Performing Organization Address [facility] Co de Phone Number [facility] [address] * URINALYSIS W/MICROSCOPIC NO CULTURE (10/10/2015 7:09 PM IRRIGATION PUMP INSTALLER) Color UA Yellow Straw, Yellow, Colorless, Light Yellow [facility] Clarity UA Clear Clear [facility] Specific Gallagher UA 1.016 1.001 - 1.030 [facility] pH UA 6.0 5.0 - 8.0 [facility] Protein UA Negative <=20 mg/dL [facility] Glucose UA Negative Negative mg/dL [facility] Ketone UA Negative Negative mg/dL [facility] Bilirubin UA Negative Negative mg/dL [facility] Blood UA Negative Negative [facility] Nitrite UA Negative Negative [facility] Leukocyte Esterase Negative Negative [facility] Urobilinogen UA <2.0 <2.0 mg/dL [facility] RBC UA 1 0 - 8 /HPF [facility] Squamous Epithelial Cells UA <1 0 - 1 /HPF [facility] Urine specimen (specimen) 10/10/2015 7:09 PM IRRIGATION PUMP INSTALLER 10/10/2015 7:15 PM IRRIGATION PUMP INSTALLER Angelia Armendariz MD LAB - URINALYSIS ORD ERABLES Performing Organization Address City/[facility] Co de Phone Number [facility] [address] [place] [address] * DRUG ABUSE PANEL 10-20+ETHANOL URINE NO CONFIRM (10/10/2015 7:09 PM IRRIGATION PUMP INSTALLER) Amphetamines Screen Urine Negative Negative: < 1000 ng/mL [facility] Barbiturates Screen Urine Negative Negative: < 200 ng/mL [facility] Benzodiazepine Screen Urine Negative Negative: < 200 ng/mL [facility] Opiates Urine Negative Negative: < 300 ng/mL [facility] Cocaine Metabolites Urine Negative Negative: < 300 ng/mL [facility] Phencyclidine Screen Urine Negative Negative: < 25 ng/ml [facility] Cannabinoids Screen Urine Negative Negative: <50 ng/mL [facility] Methadone Screen Urine Negative Negative: < 300 ng/mL [facility] Urine specimen (specimen) 10/10/2015 7:09 PM IRRIGATION PUMP INSTALLER 10/10/2015 7:15 PM IRRIGATION PUMP INSTALLER Narrative [facility] - 10/10/2015 7:57 PM IRRIGATION PUMP INSTALLER The Urine Toxicology Screening Panel does not screen for Propoxyphene, Meprobamate, Carisoprodol, Trazodone, zdra-iwj-eyfovkd medications and/or volatiles (Acetone, Isopropanol, Methanol or Ethylene Glycol). Ethanol, Salicylate, Acetaminophen, Tricyclic Antidepressants and several therapeutic drugs may be individually assayed in serum or plasma specimen. Toxicology testing by the [facility] is an aid to medical diagnosis and treatment of patients. No documented chain of custody was maintained. Results are intended to be used for clinical purposes only. Angelia Armendariz MD LAB - URINE CHEMISTR Y ORDERABLES [facility] [address] [phone] * XR CHEST 2VW (10/10/2015 6:48 PM IRRIGATION PUMP INSTALLER) Anatomical Region Laterality Modality Chest Other Impressions 10/11/2015 12:54 PM IRRIGATION PUMP INSTALLER IMPRESSION: No acute pulmonary process. Dictated by Foreign Villar MD (development vice president). This report was approved by Foreign Villar on 10/11/2015 8:[address] CORBIN Verduzco M.D. have personally reviewed and interpreted this examination/study. This report was electronically signed by CORIBN RUIZ M.D. on 10/11/2015 12:54 PM . Narrative 10/11/2015 12:54 PM IRRIGATION PUMP INSTALLER EXAMINATION: XR CHEST PA AND LATERAL HISTORY: cp COMPARISON: No prior study is available for comparison. FINDINGS: Median sternotomy with wires, mediastinal clips, and ostial markers are manifestations the patient's prior surgery. The lowest mediastinal wire is fractured. Calcified granulomas are identified in the right lung. There is no focal consolidation, pleural effusion, or pneumothorax. The cardiomediastinal silhouette is normal. The visible bony thorax is intact. Procedure Note Corbin Ruiz MD - 12/21/2017 EXAMINATION: XR CHEST PA AND LATERAL HISTORY: cp COMPARISON: No prior study is available for comparison. FINDINGS: Median sternotomy with wires, mediastinal clips, and ostial markers aremanifestations the patient's prior surgery. The lowest mediastinal wire isfractured. Calcified granulomas are identified in the right lung. There is no focalconsolidation, pleural effusion, or pneumothorax. The cardiomediastinalsilhouette is normal. The visible bony thorax is intact. IMPRESSION IMPRESSION: No acute pulmonary process. Dictated by Foreign Villar MD (development vice president). This report was approved by Foreign Villar on 10/11/2015 8:[address] CORBIN Verduzco M.D. have personally reviewed and interpreted thisexamination/study. This report was electronically signed by CORBIN RUIZ M.D. on 10/11/201512:54 PM . Angelia Armendariz MD DIAGNOSTIC IMAGING O RDERABLES * EKG 12-LEAD (10/10/2015 12:00 AM IRRIGATION PUMP INSTALLER) Only the most recent of2 resultswithin the time period is included. EKG [facility] Comment: Exam Date/Time: Oct 10 2015 19:09:59 Test Reason : stroke Blood Pressure : / mmHG Vent. Rate : 050 BPM Atrial Rate : 050 BPM P-R Int : 158 ms QRS Dur : 090 ms QT Int : 412 ms P-R-T Axes : 029 014 021 degrees QTc Int : 375 ms Sinus bradycardia Otherwise normal ECG When compared with ECG of 03-OCT-2015 23:30, No significant change was found Confirmed by Ru Chang, Sheela ([id number]), editorial clerk RAE CASTILLO ([id number]) on 10/18/2015 1:12:40 PM Referred By: REFERRING NO Confirmed By:Sheela Chang M.D. 10/10/2015 Angelia Armendariz MD ECG ORDERABLES [facility] * TYPE + SCREEN PANEL (10/03/2015 11:25 PM IRRIGATION PUMP INSTALLER) Pathologist [facility] Typem A NEG [facility] Antibody Screen NEG [facility] Blood specimen (specimen) BLOOD SPECIMEN / Unknown 10/03/2015 11:25 PM IRRIGATION PUMP INSTALLER 10/03/2015 11:41 PM IRRIGATION PUMP INSTALLER Bianca Capps MD LAB - BLOOD BANK O RDERABLES [facility] [address] * PATHOLOGY REVIEW TEG (10/03/2015 11:05 PM IRRIGATION PUMP INSTALLER) Pathologist [facility] Pathology Review TEG Other [facility] Comment: PATHOLOGIST INTERPRETATION: DATE: 10-04-2015 Summary Statement: PLATELET DYSFUNCTION, ASPIRIN-LIKE INHIBITION AND WITH ADP RESPONSE IN BORDERLINE RANGE* NO HYPERFIBRINOLYSIS *Please note that there is significant overlap of receptor inhibition results by ADP in healthy individuals and patients (Reference: Susana et al: Thrombosis Journal 2007; 5:3). Clinical correlation is advised. PLATELET AGONISTINTERPRETATION Kaolin (thrombin): Normal ADP: Borderline Arachidonic acid: Abnormal Hyperfibinolysis: Absent Platelet Count on Day of Study: > 100,000/ul The thromboelastograms for platelet activation by the agonists are reviewed, and all results are evaluated in conjunction with the platelet count by CBC. Adilia Woods DO [employer] [facility] Blood specimen (specimen) BLOOD SPECIMEN / Unknown 10/03/2015 11:05 PM IRRIGATION PUMP INSTALLER 10/04/2015 1:30 AM IRRIGATION PUMP INSTALLER Bianca Capps MD LAB - PATHOLOGY/CY [facility] ORDERABLES [address] [phone] * (ABNORMAL) TEG PLATELET MAPPING (10/03/2015 11:05 PM IRRIGATION PUMP INSTALLER) G-Clot Strength 11.6(H) 4.5 - 11.0 d/sc [facility] Pathology Review TEG Other [facility]OD [facility] Interpretation TEG See Comment [facility] React-Time 3.9(L) 5.0 - 10.0 MIN [facility] K-Time 1.1 1.0 - 3.0 MIN [facility] Angle A-BB 74.2(H) 53.0 - 72.0 Degrees [facility] MA (CK) BB 69.8 50.0 - 70.0 mm [facility] LY30 0.1 0.0 - 8.0 % [facility] D [facility] CI-Coagulation Index 3.4(H) -3.0 - 3.0 [facility] MA-ADP 38.7 Reference Range: None mm [facility] MA AA-BB 47.5 Reference Range: None mm [facility] % ADP Inhibition 52.1 Reference Range:None % [facility] % AA Inhibition 37.4 Reference Range: None % [facility] Blood specimen (specimen) BLOOD SPECIMEN / Unknown 10/03/2015 11:05 PM IRRIGATION PUMP INSTALLER 10/03/2015 11:38 PM IRRIGATION PUMP INSTALLER [facility] BLOOD BANK LAB - 10/04/2015 1:30 AM IRRIGATION PUMP INSTALLER SEE BELOW TEG Kaolin Sample Type Interpretation TEG Value Hemostasis State R < than 4 min: Enzymatic Hypercoagulability R 11-14 min: Low Clotting Factors R > than 14 min: Very low clotting factors MA 46-54 mm: Low Platelet function MA 41-45 mm: Very low platelet function MA 40 mm or less: Extremely low platelet function MA > 73 mm: Platelet hypercoagulability R < 4 min and Enzymatic and platelet hypercoagulability MA > 73 mm: Angle < 45 deg: Low fibrinogen level LY30 at 7.5% or >, Primary Fibrinolysis CI < than 1.0: LY30 at 7.5% or >, Secondary fibrinolysis CI > than 3.0: LY30 < 7.5%, Prothrombotic state CI > 3.0: Bianca Capps MD LAB - BLOOD BANK O RDERABLES Performing Organization Address City/State/[facility] Co de Phone Number [facility] [address] [place] [address], [facility] Care Teams Account Service Representative Relationship Specialty Start Date End Date Demond Stark MD [address] [place] [address] PCP - General 10/03/15
--- OUTSIDE RECORDS SUMMARY | 2024-11-06 10:17 | XMS_ITS | Clinical Summary ---
Author Organization [facility] Facility Address [address] [place] [address] Care Team Providers Care Marine Biologist Name Role Phone Demond Stark MD Primary Care Provider [phone] Social History Tobacco Use Types Packs/Day Years Used Date Smoking Tobacco: Never Assessed Sex and Gender Information Value Date Recorded Sex Assigned at Not on file Legal Sex Male 1:20 PM EDT Gender Identity Not on file Sexual Orientation Not on file Plan of Treatment Health Maintenance Due Date Last Done Comments Pneumococcal Vaccine: 65+ Years (1 of 2 - PCV) 946 Hepatitis B Vaccine (1 of 3 - Risk 3-dose series) 09/1999 Influenza Vaccine (#1) 2024 07/24/2010 Diabetes: Hemoglobin A1C 11/02/2024 Diabetes: Ophthalmology Exam 11/02/2024 Diabetes: Pedal Pulse Checked 11/02/2024 Diabetes: Sensory Foot Exam 11/02/2024 Diabetes: Visual Foot Exam 11/02/2024 Care Teams Marine Biologist Relationship Specialty Start Date End Date Demond Stark MD [address] [address] PCP - General Family Medicine 06/04/24
--- OUTSIDE RECORDS SUMMARY | 2024-11-06 10:17 | XMS_ITS | Clinical Summary ---
Author Organization [facility] Medical Office Building [address] Address [address] [place] [address] Care Team Providers Care Seam Stayer Name Role Phone Demond Stark MD Primary Care Provider [phone] Allergies Active Allergy Reactions Criticality Noted Date Comments Diphenhydramine Hallucinations Medium 11/27/2023 Was not able to sleep and made him more anxious Lisinopril Cough Low Reaction: Cough, Pravastatin Muscle pain Medium Reaction: Muscular Pain, Quetiapine Other (See comments) Low 06/05/2024 Hallucinations, insomnia Simvastatin Muscle pain Medium Reaction: Muscular Pain, Dxybgps-Bez-Pgx Reductase Inhibitors Muscle pain,Other (See comments) Medium 10/03/2015 Pt reports leg weakness/heavine ss when taking zocor. Medications levothyroxine (SYNTHROID) 112 mcg tablet Take 1 tablet (112 mcg total) by mouth programmer before breakfast Active aspirin 81 mg tablet Take 1 tablet (81 mg total) by mouth daily Active famotidine (PEPCID) 20 mg tablet Take 1 tablet (20 mg total) by mouth nightly as needed 4 Active docusate sodium (DOK) 100 mg tabletIndicatio ns:constipation Take 1 tablet (100 mg total) by mouth 2 (two) times a day Active rivaroxaban (Xarelto) 20 mg tablet TAKE 1 TABLET BY MOUTH ONCE DAILY WITH DINNER 90 tablet 2 4 Active polyethylene glycol (MIRALAX) 17 gram/dose bulk powder Take 17 g by mouth daily Active folic acid (FOLVITE) 400 mcg tablet Take 2 tablets (800 mcg total) by mouth daily Active SIMETHICONE ORAL 2 (two) times a day 4 Active pyridoxine (VITAMIN B-6) 50 mg tablet Take 1 tablet (50 mg total) by mouth daily Active loratadine (CLARITIN) 10 mg tablet Take 1 tablet (10 mg total) by mouth daily Active carbidopa-levod opa (SINEMET) 25-100 mg per tablet Take 1 tablet by mouth 3 (three) times a day Active ciprofloxacin (CILOXAN) 0.3 % ophthalmic solution 5 drops into Right EAR, NOT EYE, twice daily for 5 days 4 Active Active Problems Problem Noted Date Diagnosed Date Dysfunction of right eustachian tube 08/31/2024 Assessment & Plan (10/05/2024 10:54 AM AVIATION PROJECT MANAGER): Avoid ear cleaning techniques Avoid water to ears Follow up in 9 months for right ear tube check, earlier with ear drainage Assessment & Plan (08/31/2024 11:40 AM AVIATION PROJECT MANAGER): Right myringotomy with T-tube placement Risks and complications discussed including anesthesia, bleeding, infection, hearing loss, ear tubes may fall out early, fall inwards, stay in longer than a few years, get clogged, fall out and leave a hole in the ear drum that would need to be patched, drain clear fluid. Hearing test today Right myringotomy with T-tube placement Risks and complications discussed including anesthesia, bleeding, infection, hearing loss, ear tubes may fall out early, fall inwards, stay in longer than a few years, get clogged, fall out and leave a hole in the ear drum that would need to be patched, drain clear fluid. Hearing test today Off Xarelto and aspirin for 2 days and before and after Pre-operative cardiovascular examination 024 Dizziness 07/09/2024 Assessment & Plan (08/31/2024 11:39 AM AVIATION PROJECT MANAGER): Right myringotomy with T-tube placement Risks and complications discussed including anesthesia, bleeding, infection, hearing loss, ear tubes may fall out early, fall inwards, stay in longer than a few years, get clogged, fall out and leave a hole in the ear drum that would need to be patched, drain clear fluid. Hearing test today Assessment & Plan (07/09/2024 3:45 PM CDT): He has had previous extensive ear reconstruction in the past with recent fall and blow to that side of his head I will refer to ENT to evaluate this as a causative factor for his dizziness Chronic respiratory failure, unsp w hypoxia or h ypercapnia 01/14/2024 Assessment & Plan (07/09/2024 3:43 PM CDT): He was decannulated about at the beginning of January 11, 2024 No difficulty with breathing or phonation, he has had no drainage from the site and is no longer using dressings While occluding his mouth and nose I do not hear any air leakage when he tries to breathe in or out I will refer to ENT to ensure this does not require further intervention Assessment & Plan (01/14/2024 3:50 PM CDT): He was decannulated about a month ago He has no difficulty with care and cleaning of the stoma No difficulty with breathing or phonation He will return to the office in 2-3 months to reassess, if it remains open at 3- 6 months following decannulation, 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 Treatments include cauterization, excision, or rarely, surgical closure He has been counseled on emergently reportable signs and symptoms Persistent atrial fibrillation 03/25/2023 Chronic anticoagulation 03/25/2023 Fatty liver 03/25/2023 Elevated LFTs 08/07/2017 Assessment & Plan (08/07/2017 6:01 PM AVIATION PROJECT MANAGER): Has had elevated LFTs and a fatty liver. Bradycardia 08/07/2017 Assessment & Plan (08/07/2017 5:58 PM AVIATION PROJECT MANAGER): Asymptomatic bradycardia, on low-dose metoprolol which may eventually need to be reduced or discontinued. Traumatic subdural hematoma of neuraxis 10/15/19 17 Overview (12/28/2016): Traumatic subdural hematoma without loss of consciousness, sequela Statin intolerance 10/15/2016 Overview (12/28/2016): Statin intolerance Essential hypertension 07/20/2013 Overview (12/28/2016): Hypertension Assessment & Plan (08/07/2017 5:57 PM AVIATION PROJECT MANAGER): Hypertension is not under good control; reviewing BP some various sources over the past year the systolic is usually in the 140s. Reviewed increased risk of stroke and CHF with elevated blood pressures and have encouraged patient to add another blood pressure medication. (Not able to increase amlodipine and metoprolol any further). He reluctantly agrees. 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 Stress test September 2016 showed very good exertional capacity and no evidence of ischemia, EF 60%. EKG today shows a mild sinus bradycardia rate 55, normal intervals and no evidence of ischemia. Resolved Problems Problem Noted Date Diagnosed Date Resolved Date Preoperative cardiovascular examination 08/07/2017 03/04/2018 Assessment & Plan (08/07/2017 5:58 PM AVIATION PROJECT MANAGER): Patient is going to have knee surgery soon and needs preoperative clearance. Coronary artery disease appears stable. Low risk for cardiac event with proposed surgery. 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/2009 03/25/2023 Overview (12/28/2016): SUBENDO INFARCT, SUBSEQ Encounters Date Type Department Care Team Description 11/05/2024 Telephone [facility] [address] [place] [address] Cedric Dumont MD cardiac clearance; samples 10/05/2024 10:45 AM AVIATION PROJECT MANAGER Office Visit [facility] - [address] [place] [address] Laura Oakes, DO Dysfunction of right eustachian tube (Primary Dx) 09/29/2024 Telephone [facility] - [address] [place] [address] Mery Mauricio MA 09/22/2024 11:21 AM AVIATION PROJECT MANAGER Anesthesia Event [facility] Operating Room [address] [place] [address] Katherine Barber MD Reynolds, Ethan Emerson, MD 09/22/2024 11:00 AM AVIATION PROJECT MANAGER - 09/22/2024 11:40 AM AVIATION PROJECT MANAGER Surgery [facility] Operating Room [address] [place] [address] Laura Oakes, DO Right myringotomy with T-tube placement [18276 (CPT )] 09/22/2024 9:24 AM AVIATION PROJECT MANAGER - 09/22/2024 1:20 PM AVIATION PROJECT MANAGER Hospital Encounter [facility] Operating Room [address] [place] [address] Laura Oakes, DO Dysfunction of right eustachian tube [H69.91] (Primary Dx) Discharge Disposition: Discharge to home or self care 09/07/2024 11:15 AM AVIATION PROJECT MANAGER Ancillary Procedure [facility] [address] [place] [address] 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 (Primary Dx); Essential hypertension; Persistent atrial fibrillation (HCC); Multiple-type hyperlipidemia; Chronic anticoagulation; Pre-operative cardiovascular examination from Last 3 Months Immunizations Name Administration Dates Next Due Influenza, Split 07/24/2010 Surgical History Surgery Date Site/Laterality Comments OTHER SURGICAL HISTORY 09/23/1976 - 09/22/1977 reconstructive R ear surgery PROSTATECTOMY 09/23/2003 - 09/22/2004 Prostatectomy OTHER SURGICAL HISTORY 09/23/2009 - 09/22/2010 triple bypass surgery PROSTATECTOMY Prostatectomy CORONARY ARTERY BYPASS GRAFT 09/23/2009 - 09/22/2010 KNEE ARTHROSCOPY INGUINAL HERNIA REPAIR Right COLOSTOMY r/t hernia surgery/ sepsis TRACHEOSTOMY Medical History Medical History Date Comments Hx Other Medical TRaumatic SDH, focal sz.; Comments: ELU 10/15/2016 - Hypertension Myocardial infarction (HCC) 2009 Coronary artery disease Bypass 3 vessels Hypothyroidism Brain bleed (HCC) after falling off ladder, 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 hand, left side lips -resolved Cancer (CMS/HCC) (HCC) Prostate - Radical Prostectomy with lymph nodes Incontinence mild Inguinal hernia Kidney injury Chronic respiratory failure, unsp w hypoxia or hypercapnia (HCC) 01/14/2024 Frequent falls Chronic headaches Arrhythmia a fib Family History Medical History Relation Name Comments Diabetes Brother Anil Glaucoma Brother Anil Prostate cancer Brother Anil Prostate cancer Father Cancer -pros [place]; /Prostate Cancer; Epilepsy Mother epilepsy; Ovarian cancer Sister 1 Diabetes Sister 2 Geena Relation Name Status Comments Brother Anil Father Alive Mother Sister 1 Sister 2 Geena Alive Social History Tobacco Use Types Packs/Day Years Used Date Smoking Tobacco: Former Cigarettes Q uit: 1957 Smokeless Tobacco: Former Tobacco Cessation:Counseling Given: Not Answered Alcohol Use Standard Drinks/Week Comments Yes 0 [...] on file Legal Sex Male 8:49 AM AVIATION PROJECT MANAGER Gender Identity Not on file Sexual Orientation Not on file Obstetrics History Last Filed Vital Signs Vital Sign Reading Time Taken Comments Blood Pressure 160/88 09/22/2024 1:04 PM AVIATION PROJECT MANAGER Pulse 83 09/22/2024 1:04 PM AVIATION PROJECT MANAGER Temperature 36.3 C (97.4 F) 09/22/2024 1:04 PM AVIATION PROJECT MANAGER Respiratory Rate 18 09/22/2024 1:04 PM AVIATION PROJECT MANAGER Oxygen Saturation 97% 09/22/2024 1:04 PM AVIATION PROJECT MANAGER Inhaled Oxygen Concentration - - Weight 97.5 kg (214 lb 15.2 oz) 024 9:41 AM AVIATION PROJECT MANAGER Height 182.9 cm (6') 09/22/2024 9:41 AM AVIATION PROJECT MANAGER Body Mass Index 29.15 09/22/2024 9:41 AM AVIATION PROJECT MANAGER Plan of Treatment Health Maintenance Due Date Last Done Comments Depression Screening 1940 DTaP/Tdap/Td Vaccine (1 - Tdap) 02/21/1951 Hepatitis B Screening 02/21/1958 Well Visit 65+ 02/21/2005 Zoster Vaccine (2 of 3) 11/09/2015 09/14/2015 Pneumococcal vaccine 65+ (2 of 2 - PPSV23 or PCV20) 01/02/2017 11/07/2016 Influenza Vaccine (#1) 2024 11/14/201 9, 07/29/2018, 08/12/2013, Additional history exists Fall Risk Assessment 09/01/2025 09/01/2024 Medical Devices Implanted Type Area Swine Genetics Researcher Device Identifier Shelf Expiration Date Model / Serial / Lot Map [employer] 1.32mm 4.8mm Modify Ear T Tube Ventilation Ultrasil Sterile Blue [id number] - [id number] Implanted:Qty: 1 on 09/22/2024 by Laura Oakes DO at [facility] Right: Ear [employer] 07/13/2034 [id number] / / [id number] Procedures Procedure Name Priority Date/Time Associated Diagnosis Comments OR AN ELECTIVE SUPRAGLOTTIC AIRWAY Routine 09/22/2024 11:28 AM AVIATION PROJECT MANAGER OR TYMPANOSTOMY GENERAL ANESTHESIA 09/22/2024 11:11 AM AVIATION PROJECT MANAGER Dysfunction of right eustachian tube ECG 12-LEAD STAT 09/22/2024 9:59 AM AVIATION PROJECT MANAGER NM MPI SPECT (REST AND/OR STRESS) MULTIPLE STUDIES Schedule Routine, Read Routine (OP Routine) 09/07/2024 12:25 PM AVIATION PROJECT MANAGER 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 Pre-operative cardiovascular examination AUDIOGRAM Routine 08/31/2024 11:30 AM AVIATION PROJECT MANAGER Mixed conductive and sensorineural hearing loss of right ear with restricted hearing of left ear from Last 3 Months Results * OR AN ELECTIVE SUPRAGLOTTIC AIRWAY (09/22/2024 11:28 AM AVIATION PROJECT MANAGER) Narrative Gwendolyn Nicholas CRNA - 09/22/2024 11:28 AM AVIATION PROJECT MANAGER Gwendolyn Nicholas CRNA 09/22/2024 11:29 AM Airway Patient location: OR Urgency: elective Indications for airway management: anesthesia Difficult airway: no Staff: Placed by: GSE MECHANIC: Gwendolyn Nicholas CRNA Emergent airway documentation: Risks and benefits discussed: yes Consent obtained: yes Consent given by: patient Airway prep: Preoxygenated: yes Mask difficulty assessment: 0 - not attempted Spontaneous ventilation during airway: present Sedation level during airway: GA Final airway details: Final airway type: supraglottic airway Final supraglottic airway: unique SGA size: 4 Number of attempts: 1 us Katherine Barber MD ANESTHESIA ORDERABLES Fi nal Result * ECG 12 lead (09/22/2024 9:59 AM AVIATION PROJECT MANAGER) 09/22/2024 9:59 AM AVIATION PROJECT MANAGER Narrative [facility] - 09/22/2024 12:03 PM AVIATION PROJECT MANAGER Vent Rate: 80 bpm RR Interval: 746 msec OR Interval: 0 msec QRS Duration: 94 msec QT Interval: 399 msec QTC Interval: 435 msec P-R-T Lovejoy: [id number] - 7 - -16 degrees IMPRESSION: ATRIAL FIBRILLATION No prior EKG for comparison. Electronically Signed By: Dr Wali Espinal us Leland Valle MD ECG ORDERABLES Final Result [facility] * NM MPI SPECT (Rest and/or Stress) Multiple Studies (09/07/2024 12:25 PM AVIATION PROJECT MANAGER) Anatomical Region Laterality Modality Body N/A Nuclear Medicine 09/07/2024 9:51 AM AVIATION PROJECT MANAGER Narrative 09/08/2024 12:56 PM AVIATION PROJECT MANAGER [facility] [address] [facility] [address] [address] [address] [facility] [place] [facility] [address], [place] [address] P:[phone] P:[phone] MPI Imaging Report Patient Name: LINCOLN KIMBALL L : 1940 Study Date: 09/07/2024 9:51:42 AM Gender: M Tech: [facility] Location: [facility] Provider: CEDRIC DUMONT Height(Cm): 185.4 BSA: Weight(Kg): 99.3 BMI: 28.89 Order Provider: CEDRIC DUMONT - PHYSICIAN: Referring Physician: Dr. Stark. HCG Physician: Syed Dumont M.D. Interpreting Physician: Do Meier D.O. Stress Supervision: Syed Dumont M.D. PROCEDURES: Pharmacologic SPECT Report: Myocardial perfusion imaging with Tc99M Sestamibi SPECT at rest and stress post regadenoson (Lexiscan) infusion. INDICATIONS: Hypertension, High Cholesterol, Former Smoker, I25.10 Atherosclerotic heart disease of upper sioux coronary artery without angina pectoris, and Z01.810 Encounter for preprocedural cardiovascular examination. FINDINGS: Procedural Findings: One day rest/stress was used. Tc99m Sestamibi injected IV at rest was 12.4 millicuries 37.7 millicuries of Tc99M Sestamibi injected IV during Lexiscan stress Lexiscan 0.4mg administered IV over 10 seconds. Patient had no symptoms during stress test. Baseline heart rate was 91 BPM Maximum Heart Rate Achieved was: 106 BPM Baseline blood pressure was 130/90 mmHg Post Stress Blood Pressure was 122/78 mmHg Termination: Protocol complete. Resting ECG: Nonspecific T wave abnormality. Atrial fibrillation. Post ECG: No diagnostic ST changes. Arrhythmia: Frequent PVCs. Perfusion Findings: Abnormal perfusion imaging - see below. Technical quality of study is good. Significant patient motion was not noted. Left ventricle cavity size at rest is mildly enlarged. A TID of 0.96 was automatically calculated. defect 1: Size is small. Severity is moderate. Location of defect is in the apical anterior segment. Reversibility is full. Type of defect is ischemia. defect 2: Size is medium. Severity is moderate. Location of defect is in the basal inferolateral segment and mid inferolateral segment. Reversibility is not present, defect is fixed. Type of defect is infarction. LV Function: Left ventricular ejection fraction is 43 %. There is mild LV dysfunction. CONCLUSIONS: No diagnostic ST changes. There is a small reversible anteroapical defect consistent with ischemia. There is a fixed defect involving the basal to mid inferolateral daugherty, consistent with prior inferior OH. Left ventricular ejection fraction is 43 %. There is mild LV dysfunction. There is hypokinesis in the basal inferior segment and mid inferior segment. Electronically Signed By: Cedric Dumont MD 09/07/2024 12:59:59 PM AVIATION PROJECT MANAGER Electronically Signed By: Do Meier DO, [facility], [facility], [facility]ST[facility] 09/08/2024 12:55:38 PM AVIATION PROJECT MANAGER Procedure Note Do Meier DO - 09/08/2024 [facility] [address] [facility] [address], [place] [address] [address] [facility] [place] [facility] [address], [place] [address] P:[phone] P:[phone] MPI Imaging Report Patient Name: LINCOLN KIMBALL L : 1940 Study Date: 09/07/2024 9:51:42 AM Gender: M Tech: [facility] Location: [facility] Provider: CEDRIC DUMONT Height(Cm): 185.4 BSA: Weight(Kg): 99.3 BMI: 28.89 Order Provider: CEDRIC DUMONT - PHYSICIAN: Referring Physician: Dr. Stark. HCG Physician: Syed Dumont M.D. Interpreting Physician: Do Meier D.O. Stress Supervision: Syed Dumont M.D. PROCEDURES: Pharmacologic SPECT Report: Myocardial perfusion imaging with Tc99M Sestamibi SPECT at rest and stresspost regadenoson (Lexiscan) infusion. INDICATIONS: Hypertension, High Cholesterol, Former Smoker, I25.10 Atheroscleroticheart disease of upper sioux coronary artery without angina pectoris, and Z01.810 Encounter forpreprocedural cardiovascular examination. FINDINGS: Procedural Findings: One day rest/stress was used. Tc99m Sestamibi injected IV at rest was 12.4 millicuries 37.7 millicuries of Tc99M Sestamibi injected IV during Lexiscan stress Lexiscan 0.4mg administered IV over 10 seconds. Patient had no symptoms during stress test. Baseline heart rate was 91 BPM Maximum Heart Rate Achieved was: 106 BPM Baseline blood pressure was 130/90 mmHg Post Stress Blood Pressure was 122/78 mmHg Termination: Protocol complete. Resting ECG: Nonspecific T wave abnormality. Atrial fibrillation. Post ECG: No diagnostic ST changes. Arrhythmia: Frequent PVCs. Perfusion Findings: Abnormal perfusion imaging - see below. Technical quality of study isgood. Significant patient motion was not noted. Left ventricle cavity size at rest is mildlyenlarged. A TID of 0.96 was automatically calculated. defect 1: Size is small. Severity is moderate. Location of defect is in the apicalanterior segment. Reversibility is full. Type of defect is ischemia. defect 2: Size is medium. Severity is moderate. Location of defect is in the basalinferolateral segment and mid inferolateral segment. Reversibility is not present,defect is fixed. Type of defect is infarction. LV Function: Left ventricular ejection fraction is 43 %. There is mild LVdysfunction. CONCLUSIONS: No diagnostic ST changes. There is a small reversible anteroapical defect consistent with ischemia.There is a fixed defect involving the basal to mid inferolateral daugherty, consistentwith prior inferior OH. Left ventricular ejection fraction is 43 %. There is mild LVdysfunction. There is hypokinesis in the basal inferior segment and mid inferiorsegment. Electronically Signed By: Cedric Dumont MD 09/07/2024 12:59:59 PM AVIATION PROJECT MANAGER Electronically Signed By: Do Meier DO, FACShama, MARIO, JOSIAH 09/08/2024 12:55:38 PM AVIATION PROJECT MANAGER us Cedric Dumont MD IMG NM PROCEDURES Final R esult * AUDIOGRAM (08/31/2024 11:30 AM AVIATION PROJECT MANAGER) Narrative Renetta Barrientos Au.D. - 08/31/2024 11:30 AM AVIATION PROJECT MANAGER Renetta Barrientos Au.D. 08/31/2024 1:35 PM Audiogram Performed by: Renetta Barrientos Au.D. Authorized by: Laura Oakes, Laura Oakes DO AUDIOLOGY SERVICES ORDERABLE S Final Result from Last 3 Months Insurance MEDICARE MEDICARE [facility] MEDICARE SUPPLEMENT Care Teams Seam Stayer Relationship Specialty Start Date End Date Demond Stark MD PCP - General 07/23/11
--- OUTSIDE RECORDS SUMMARY | 2024-11-06 10:17 | XMS_ITS | Continuity of Care Document ---
Author Organization [facility] Address [address] [place] [address] [place] [address] Phone Care Team Providers Care Radiotelegrapher Name Role Phone Karsten Mason MD Unavailable Unavailable Procedures Procedure Date Office/outpatient Visit, [facility] Advance Directives Directive Yes / No Effective Date File Name No Information Encounters Encounter Description Practice Location Reason(s) For Visit Diagnoses Date Provider Providers Copied on Encounter Office/outpat ient Visit, [facility], [id number] [place] [address] [address], [place], [place], [id number], [place] tel:[phone] [facility] No Information [address] Is[address] Shelley. [address] [facility], [place], [place], [id number], [place]. tel:[phone] Family History Family Member Type Diagnosis Age At Onset No Information Payers Payer name Insurance type Covered republican ID Authoriza tion(s) Medicare [facility] [id number] Social History Type Description Quantity Date Captured [...]
--- OUTSIDE RECORDS SUMMARY | 2024-11-06 10:17 | XMS_ITS | Encounter Summary ---
Author Organization [email or web address] Address [address] [place] [address] Care Team Providers Care Aeronautics Teacher Name Role Phone Unavailable Primary Care Provider Unavailabl e Encounter Details Date Type Department Care Team (Late st Contact Info) Description 10/12/2023 Lab Requisition [facility] Laboratory Services [address] [place] [address] [place] [address] [address] Social History Tobacco Use Types Packs/Day Years Used Date Smoking Tobacco: Never Assessed Sex and Gender Information Value Date Recorded Sex Assigned at Not on file Legal Sex Male 9:18 AM JEWELRY BEARING MAKER Gender Identity Not on file Sexual Orientation Not on file documented as of this encounter Plan of Treatment Not on file documented as of this encounter Procedures Procedure Name Priority Date/Time Associated Diagnosis Comments MAGNESIUM LEVEL Routine 10/12/2023 4:00 AM JEWELRY BEARING MAKER RENAL FUNCTION PANEL Routine 10/12/2023 4:00 AM JEWELRY BEARING MAKER documented in this encounter Results * MAGNESIUM LEVEL (10/12/2023 4:00 AM JEWELRY BEARING MAKER) MAGNESIUM 2.3 1.6 - 2.6 mg/dL 10/12/2023 6:02 AM JEWELRY BEARING MAKER [facility] [employer] [facility] Blood Collection / Unknown 10/12/2023 4:00 AM JEWELRY BEARING MAKER 10/12/2023 5:07 AM JEWELRY BEARING MAKER us Erik Chairez MD CHEMISTRY ORDERABLES Final Resul t [facility] [id number] [place] [address] * (ABNORMAL) RENAL FUNCTION PANEL (10/12/2023 4:00 AM JEWELRY BEARING MAKER) SODIUM 139 136 - 145 mmol/L 10/12/2023 6:02 AM [facility] POTASSIUM 4.2 3.4 - 5.1 mmol/L 10/12/2023 6:02 AM [facility] CHLORIDE 102 98 - 107 mmol/L 10/12/2023 6:02 AM [facility] CO2 24 22 - 29 mmol/L 10/12/2023 6:02 AM [facility] CALCIUM 9.5 8.6 - 10.4 mg/dL 10/12/2023 6:02 AM [facility] BUN 43(H) 6 - 20 mg/dL 10/12/2023 6:02 AM [facility] CREATININE 1.20(H) 0.67 - 1.17 mg/dL 10/12/2023 6:02 AM [facility] Comment:The GFR result is no t clinically significant on patients <18 or >70 years of age. GLUCOSE 94 74 - 99 mg/dL 10/12/2023 6:02 AM [facility] ALBUMIN 3.4(L) 3.5 - 5.2 g/dL 10/12/2023 6:02 AM [facility] PHOSPHORUS 4.2 2.5 - 4.5 mg/dL 10/12/2023 6:02 AM [facility] GFR 60 mL/min/1.7 3 sq meter 10/12/2023 6:02 AM [facility] Comment:eGFR calculated with 2020 CKD-EPI equation. Vegetarian diet, extremely high or low muscle mass, and may affect results. Cystatin C with Glomerular Filtration Rate is a suitable alternative for these patients. 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
--- OUTSIDE RECORDS SUMMARY | 2024-11-06 10:18 | XMS_ITS | Encounter Summary ---
Author Organization [facility] Address [address] [place] [address] Care Team Providers Care Color Tester Name Role Phone Unavailable Primary Care Provider Unavailabl e Encounter Details Date Type Department Care Team (Late st Contact Info) Description 11/07/2023 Lab Requisition [facility] Laboratory Services [address] [place] [address] [place] [id number] [place] [address] Social History Tobacco Use Types Packs/Day Years Used Date Smoking Tobacco: Never Assessed Sex and Gender Information Value Date Recorded Sex Assigned at Not on file Legal Sex Male 9:18 AM PIT STEWARD Gender Identity Not on file Sexual Orientation Not on file documented as of this encounter Plan of Treatment Not on file documented as of this encounter Procedures Procedure Name Priority Date/Time Associated Diagnosis Comments CBC WITH DIFFERENTIAL Routine 11/07/2023 4:30 AM PIT STEWARD BASIC METABOLIC PANEL Routine 11/07/2023 4:30 AM PIT STEWARD documented in this encounter Results * (ABNORMAL) CBC WITH DIFFERENTIAL (11/07/2023 4:30 AM PIT STEWARD) WBC 9.4 4.5 - 10.5 K/uL 11/07/2023 8:10 AM PIT STEWARD [facility] LABORATORY SERVICES - [facility] RBC 4.06(L) 4.50 - 5.40 M/uL 11/07/2023 8:10 AM PIT STEWARD [facility] HEMOGLOBIN 11.9(L) 13.6 - 16.5 g/dL 11/07/2023 8:10 AM PIT STEWARD [facility] HEMATOCRIT 37.1(L) 40.0 - 48.0 % 11/07/2023 8:10 AM PIT STEWARD [facility] LABORATORY SERVICES [facility] MCV 91.5 82.0 - 99.0 fL 11/07/2023 8:10 AM PIT STEWARD [facility] LABORATORY SERVICES - [facility] MCH 29.4 27.8 - 34.5 pg 11/07/2023 8:10 AM PIT STEWARD [facility] LABORATORY SERVICES [facility] MCHC 32.1(L) 32.5 - 35.5 g/dL 11/07/2023 8:10 AM PIT STEWARD [facility] LABORATORY SERVICES [facility] RDW 16.9(H) 11.5 - 14.5 % 11/07/2023 8:10 AM PIT STEWARD [facility] LABORATORY SERVICES [facility] PLATELETS 270 160 - 420 K/uL 11/07/2023 8:10 AM PIT STEWARD [facility] LABORATORY SERVICES [facility] MPV 10.0 8.7 - 12.7 fL 11/07/2023 8:10 AM PIT STEWARD [facility] LABORATORY SERVICES [facility] NEUTROPHILS 61 % 11/07/2023 8:10 AM PIT STEWARD [facility] LABORATORY SERVICES [facility] LYMPHOCYTES 21 % 11/07/2023 8:10 AM PIT STEWARD [facility] MONOCYTES 6 % 11/07/2023 8:10 AM PIT STEWARD [facility] EOSINOPHILS 11 % 11/07/2023 8:10 AM PIT STEWARD [facility] BASOPHILS 1 % 11/07/2023 8:10 AM PIT STEWARD [facility] LABORATORY SERVICES [facility] NEUTROPHIL ABSOLUTE 5.70 1.90 - 7.00 K/uL 11/07/2023 8:10 AM PIT STEWARD [facility] LABORATORY SERVICES [facility] LYMPHOCYTE ABSOLUTE 2.00 0.70 - 4.50 K/uL 11/07/2023 8:10 AM PIT STEWARD [facility] MONOCYTE ABSOLUTE 0.60 0.10 - 1.30 K/uL 11/07/2023 8:10 AM PIT STEWARD [facility] LABORATORY SERVICES [facility] EOSINOPHIL ABSOLUTE 1.00(H) 0.00 - 0.70 K/uL 11/07/2023 8:10 AM PIT STEWARD [facility] LABORATORY SERVICES [facility] BASOPHILS ABSOLUTE 0.10 0.00 - 0.20 K/uL 11/07/2023 8:10 AM [facility] Blood 11/07/2023 4:30 AM PIT STEWARD 11/07/2023 8:06 AM PIT STEWARD us Erik Chairez MD HEMATOLOGY ORDERABLES Final Resu lt [facility] CLIA# [id number] [place] [address] * (ABNORMAL) BASIC METABOLIC PANEL (11/07/2023 4:30 AM PIT STEWARD) SODIUM 137 136 - 145 mmol/L 11/07/2023 8:41 AM [facility] POTASSIUM 4.2 3.4 - 5.1 mmol/L 11/07/2023 8:41 AM [facility] CHLORIDE 100 98 - 107 mmol/L 11/07/2023 8:41 AM [facility] CO2 22 22 - 29 mmol/L 11/07/2023 8:41 AM [facility] CALCIUM 9.9 8.6 - 10.4 mg/dL 11/07/2023 8:41 AM [facility] BUN 41(H) 6 - 20 mg/dL 11/07/2023 8:41 AM [facility] CREATININE 1.03 0.67 - 1.17 mg/dL 11/07/2023 8:41 AM [facility] Comment:The GFR result is no t clinically significant on patients <18 or >70 years of age. GLUCOSE 109(H) 74 - 99 mg/dL 11/07/2023 8:41 AM [facility] GFR >60 mL/min/1.7 3 sq meter 11/07/2023 8:41 AM [facility] Comment:eGFR calculated with 2020 CKD-EPI equation. Vegetarian diet, extremely high or low muscle mass, and may affect results. Cystatin C with Glomerular Filtration Rate is a suitable alternative for these patients. ANION GAP 15 8 - 16 mmol/L 11/07/2023 8:41 AM PIT STEWARD [facility] LABORATORY SERVICES [facility] Blood 11/07/2023 4:30 AM PIT STEWARD 11/07/2023 8:12 AM PIT STEWARD Erik Chairez MD CHEMISTRY ORDERABLES Final Resul t [facility] LABORAT[facility] CLIA# [id number] [place] [address] documented in this encounter Visit Diagnoses Not on filedocumented in this encounter Additional Health Concerns Infection Onset Date Last Indicated Resolved Time CRE-CP Comment:10/09/23 Klebsiella pneumoniae, Sputum 10/09/2023 10/09/2023 05/28/2024 2:37 PM C DT 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
--- OUTSIDE RECORDS SUMMARY | 2024-11-06 10:18 | XMS_ITS | Encounter Summary ---
Author Organization [facility] Address [address] [place] [address] Care Team Providers Care Barrel Repairer Name Role Phone Unavailable Primary Care Provider Unavailabl e Encounter Details Date Type Department Care Team (Late st Contact Info) Description 11/05/2023 Lab Requisition [facility] Laboratory Services [address] [place] [address] [place] [id number] [address] Social History Tobacco Use Types Packs/Day Years Used Date Smoking Tobacco: Never Assessed Sex and Gender Information Value Date Recorded Sex Assigned at Not on file Legal Sex Male 9:18 AM SCHOOL FUNDRAISING DIRECTOR Gender Identity Not on file Sexual Orientation Not on file documented as of this encounter Plan of Treatment Not on file documented as of this encounter Procedures Procedure Name Priority Date/Time Associated Diagnosis Comments DIFFERENTIAL, MANUAL Routine 11/05/2023 3:30 AM SCHOOL FUNDRAISING DIRECTOR CBC WITH DIFFERENTIAL Routine 11/05/2023 3:30 AM SCHOOL FUNDRAISING DIRECTOR documented in this encounter Results * MANUAL DIFFERENTIAL (11/05/2023 3:30 AM SCHOOL FUNDRAISING DIRECTOR) PLATELET EST. Consistent w Count 11/05/2023 6:05 AM SCHOOL FUNDRAISING DIRECTOR [facility] RBC MORPHOLOGY Normal 11/05/2023 6:05 AM SCHOOL FUNDRAISING DIRECTOR [facility] Blood Collection / Unknown 11/05/2023 3:30 AM SCHOOL FUNDRAISING DIRECTOR 11/05/2023 5:05 AM SCHOOL FUNDRAISING DIRECTOR Erik Chairez MD HEMATOLOGY ORDERABLES COM Final Result [facility] CLIA# [id number] [address] [place] [address] * (ABNORMAL) CBC WITH DIFFERENTIAL (11/05/2023 3:30 AM SCHOOL FUNDRAISING DIRECTOR) [facility] WBC 7.5 4.5 - 10.5 K/uL 11/05/2023 6:05 AM [facility] LABORATORY [facility] RBC 3.81(L) 4.50 - 5.40 M/uL 11/05/2023 6:[address] [facility] HEMOGLOBIN 11.9(L) 13.6 - 16.5 g/dL 11/05/2023 6:[address] [facility] HEMATOCRIT 35.6(L) 40.0 - 48.0 % 11/05/2023 6:05 AM [facility] [employer] [facility] MCV 93.5 82.0 - 99.0 fL 11/05/2023 6:05 AM [facility] [employer] [facility] MCH 31.2 27.8 - 34.5 pg 11/05/2023 6:05 AM [facility] [employer] [facility] MCHC 33.3 32.5 - 35.5 g/dL 11/05/2023 6:05 AM [facility] [employer] [facility] RDW 17.0(H) 11.5 - 14.5 % 11/05/2023 6:05 AM [facility] [employer] [facility] PLATELETS 243 160 - 420 K/uL 11/05/2023 6:05 AM [facility] [employer] [facility] MPV 9.4 8.7 - 12.7 fL 11/05/2023 6:05 AM [facility] LABORATORY [facility] NEUTROPHILS 63 % 11/05/2023 6:05 AM SCHOOL FUNDRAISING DIRECTOR [facility] [employer] [facility] LYMPHOCYTES 23 % 11/05/2023 6:05 AM SCHOOL FUNDRAISING DIRECTOR [facility] LABORATORY [facility] MONOCYTES 5 % 11/05/2023 6:05 AM [facility] LABORATORY [facility] EOSINOPHILS 9 % 11/05/2023 6:05 AM SCHOOL FUNDRAISING DIRECTOR [facility] LABORATORY [facility] BASOPHILS 1 % 11/05/2023 6:05 AM SCHOOL FUNDRAISING DIRECTOR [facility] LABORATORY [facility] NEUTROPHIL ABSOLUTE 4.70 1.90 - 7.00 K/uL 11/05/2023 6:05 AM SCHOOL FUNDRAISING DIRECTOR [facility] LABORATORY [facility] LYMPHOCYTE ABSOLUTE 1.70 0.70 - 4.50 K/uL 11/05/2023 6:05 AM SCHOOL FUNDRAISING DIRECTOR [facility] LABORATORY [facility] MONOCYTE ABSOLUTE 0.40 0.10 - 1.30 K/uL 11/05/2023 6:05 AM SCHOOL FUNDRAISING DIRECTOR [facility] LABORATORY [facility] EOSINOPHIL ABSOLUTE 0.70 0.00 - 0.70 K/uL 11/05/2023 6:05 AM SCHOOL FUNDRAISING DIRECTOR [facility] LABORATORY SERVICES - [facility] BASOPHILS ABSOLUTE 0.00 0.00 - 0.20 K/uL 11/05/2023 6:05 AM SCHOOL FUNDRAISING DIRECTOR [facility] LABORATORY [facility] Blood Collection / Unknown 11/05/2023 3:30 AM SCHOOL FUNDRAISING DIRECTOR 11/05/2023 5:05 AM SCHOOL FUNDRAISING DIRECTOR Erik Chairez MD HEMATOLOGY ORDERABLES Final Resu lt [facility] CLIA# [id number] [address] [place] [address] documented in this encounter Visit Diagnoses Not on filedocumented in this encounter Additional Health Concerns Infection Onset Date Last Indicated Resolved Time CRE-CP Comment:10/09/23 Klebsiella pneumoniae, Sputum 10/09/2023 10/09/2023 05/28/2024 2:37 PM C DT 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
--- OUTSIDE RECORDS SUMMARY | 2024-11-06 10:18 | XMS_ITS | Encounter Summary ---
Author Organization [facility] Address [address] [place] [address] Care Team Providers Care Manager Revenue Name Role Phone Unavailable Primary Care Provider Unavailabl e Encounter Details Date Type Department Care Team (Late st Contact Info) Description 10/13/2023 Lab Requisition [facility] Laboratory Services [address] [place] [address] [place] [address] [place] [address] Social History Tobacco Use Types Packs/Day Years Used Date Smoking Tobacco: Never Assessed Sex and Gender Information Value Date Recorded Sex Assigned at Not on file Legal Sex Male 9:18 AM RELIEF OPERATOR Gender Identity Not on file Sexual Orientation Not on file documented as of this encounter Plan of Treatment Not on file documented as of this encounter Procedures Procedure Name Priority Date/Time Associated Diagnosis Comments MAGNESIUM LEVEL Routine 10/13/2023 4:00 AM RELIEF OPERATOR RENAL FUNCTION PANEL Routine 10/13/2023 4:00 AM RELIEF OPERATOR documented in this encounter Results * MAGNESIUM LEVEL (10/13/2023 4:00 AM RELIEF OPERATOR) MAGNESIUM 2.3 1.6 - 2.6 mg/dL 10/13/2023 5:59 AM RELIEF OPERATOR [facility] [employer] [facility] Blood Collection / Unknown 10/13/2023 4:00 AM RELIEF OPERATOR 10/13/2023 5:20 AM RELIEF OPERATOR us Erik Chairez MD CHEMISTRY ORDERABLES Final Resul t [facility] [id number] [place] [address] * (ABNORMAL) RENAL FUNCTION PANEL (10/13/2023 4:00 AM RELIEF OPERATOR) SODIUM 138 136 - 145 mmol/L 10/13/2023 5:58 AM [facility] POTASSIUM 4.5 3.4 - 5.1 mmol/L 10/13/2023 5:58 AM [facility] CHLORIDE 100 98 - 107 mmol/L 10/13/2023 5:58 AM [facility] CO2 25 22 - 29 mmol/L 10/13/2023 5:58 AM [facility] CALCIUM 9.6 8.6 - 10.4 mg/dL 10/13/2023 5:58 AM [facility] BUN 39(H) 6 - 20 mg/dL 10/13/2023 5:58 AM [facility] CREATININE 1.09 0.67 - 1.17 mg/dL 10/13/2023 5:58 AM [facility] Comment:The GFR result is no t clinically significant on patients <18 or >70 years of age. GLUCOSE 100(H) 74 - 99 mg/dL 10/13/2023 5:58 AM [facility] ALBUMIN 3.5 3.5 - 5.2 g/dL 10/13/2023 5:58 AM [facility] PHOSPHORUS 4.8(H) 2.5 - 4.5 mg/dL 10/13/2023 5:58 AM [facility] GFR >60 mL/min/1.7 3 sq meter 10/13/2023 5:58 AM [facility] Comment:eGFR calculated with 2020 CKD-EPI equation. Vegetarian diet, extremely high or low muscle mass, and may affect results. Cystatin C with Glomerular Filtration Rate is a suitable alternative for these patients. 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
--- OUTSIDE RECORDS SUMMARY | 2024-11-06 10:18 | XMS_ITS | Encounter Summary ---
Author Organization [facility] Address [address] [place] [address] Care Team Providers Care Marketing Assistant Manager Name Role Phone Unavailable Primary Care Provider Unavailabl e Encounter Details Date Type Department Care Team (Late st Contact Info) Description 10/20/2023 Lab Requisition [facility] Laboratory Services [address] [place] [address] [place] [address] [place] [address] Social History Tobacco Use Types Packs/Day Years Used Date Smoking Tobacco: Never Assessed Sex and Gender Information Value Date Recorded Sex Assigned at Not on file Legal Sex Male 9:18 AM TRADE MANAGER Gender Identity Not on file Sexual Orientation Not on file documented as of this encounter Plan of Treatment Not on file documented as of this encounter Procedures Procedure Name Priority Date/Time Associated Diagnosis Comments CBC WITH DIFFERENTIAL Routine 10/20/2023 2:20 AM TRADE MANAGER BASIC METABOLIC PANEL Routine 10/20/2023 2:20 AM TRADE MANAGER documented in this encounter Results * (ABNORMAL) CBC WITH DIFFERENTIAL (10/20/2023 2:20 AM TRADE MANAGER) WBC 8.3 4.5 - 10.5 K/uL 10/20/2023 5:25 AM TRADE MANAGER [facility] RBC 3.82(L) 4.50 - 5.40 M/uL 10/20/2023 5:25 AM TRADE MANAGER [facility] HEMOGLOBIN 11.2(L) 13.6 - 16.5 g/dL 10/20/2023 5:25 AM TRADE MANAGER [facility] HEMATOCRIT 35.0(L) 40.0 - 48.0 % 10/20/2023 5:25 AM TRADE MANAGER [facility] MCV 91.6 82.0 - 99.0 fL 10/20/2023 5:25 AM TRADE MANAGER [facility] MCH 29.4 27.8 - 34.5 pg 10/20/2023 5:25 AM TRADE MANAGER [facility] MCHC 32.1(L) 32.5 - 35.5 g/dL 10/20/2023 5:25 AM TRADE MANAGER [facility] RDW 17.4(H) 11.5 - 14.5 % 10/20/2023 5:25 AM TRADE MANAGER [facility] PLATELETS 255 160 - 420 K/uL 10/20/2023 5:25 AM TRADE MANAGER [facility] MPV 9.4 8.7 - 12.7 fL 10/20/2023 5:25 AM TRADE MANAGER [facility] NEUTROPHILS 60 % 10/20/2023 5:25 AM TRADE MANAGER [facility] LYMPHOCYTES 23 % 10/20/2023 5:25 AM TRADE MANAGER [facility]ORATORY SERVICES [facility] MONOCYTES 6 % 10/20/2023 5:25 AM TRADE MANAGER [facility] EOSINOPHILS 11 % 10/20/2023 5:25 AM TRADE MANAGER [facility] BASOPHILS 1 % 10/20/2023 5:25 AM TRADE MANAGER [facility] NEUTROPHIL ABSOLUTE 4.90 1.90 - 7.00 K/uL 10/20/2023 5:25 AM TRADE MANAGER [facility] LYMPHOCYTE ABSOLUTE 1.90 0.70 - 4.50 K/uL 10/20/2023 5:25 AM TRADE MANAGER [employer] [facility]ORATORY SERVICES [facility] MONOCYTE ABSOLUTE 0.50 0.10 - 1.30 K/uL 10/20/2023 5:25 AM TRADE MANAGER [facility] EOSINOPHIL ABSOLUTE 0.90(H) 0.00 - 0.70 K/uL 10/20/2023 5:25 AM TRADE MANAGER [facility] BASOPHILS ABSOLUTE 0.00 0.00 - 0.20 K/uL 10/20/2023 5:25 AM [facility] Blood 10/20/2023 2:20 AM TRADE MANAGER 10/20/2023 5:15 AM TRADE MANAGER Erik Chairez MD HEMATOLOGY ORDERABLES Final Resu lt [facility] CLIA# [id number] [place] [address] * (ABNORMAL) BASIC METABOLIC PANEL (10/20/2023 2:20 AM TRADE MANAGER) SODIUM 140 136 - 145 mmol/L 10/20/2023 5:53 AM [facility] POTASSIUM 3.8 3.4 - 5.1 mmol/L 10/20/2023 5:53 AM [facility] CHLORIDE 101 98 - 107 mmol/L 10/20/2023 5:53 AM [facility] CO2 26 22 - 29 mmol/L 10/20/2023 5:53 AM [facility] CALCIUM 9.6 8.6 - 10.4 mg/dL 10/20/2023 5:53 AM [facility] BUN 30(H) 6 - 20 mg/dL 10/20/2023 5:53 AM [facility] CREATININE 0.89 0.67 - 1.17 mg/dL 10/20/2023 5:53 AM [facility] Comment:The GFR result is no t clinically significant on patients <18 or >70 years of age. GLUCOSE 110(H) 74 - 99 mg/dL 10/20/2023 5:53 AM [facility] GFR >60 mL/min/1.7 3 sq meter 10/20/2023 5:53 AM [facility] Comment:eGFR calculated with 2020 CKD-EPI equation. Vegetarian diet, extremely high or low muscle mass, and may affect results. Cystatin C with Glomerular Filtration Rate is a suitable alternative for these patients. ANION GAP 13 8 - 16 mmol/L 10/20/2023 5:53 AM TRADE MANAGER [facility] Blood 10/20/2023 2:20 AM TRADE MANAGER 10/20/2023 5:15 AM TRADE MANAGER Erik Chairez MD CHEMISTRY ORDERABLES Final Resul t [facility] CLIA# [id number] [place] [address] documented in this encounter Visit Diagnoses Not on filedocumented in this encounter Additional Health Concerns Infection Onset Date Last Indicated Resolved Time CRE-CP Comment:10/09/23 Klebsiella pneumoniae, Sputum 10/09/2023 10/09/2023 05/28/2024 2:37 PM C DT 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
--- OUTSIDE RECORDS SUMMARY | 2024-11-06 10:18 | XMS_ITS | Encounter Summary ---
Author Organization [facility] Address [address] [place] [address] Care Team Providers Care Judge Name Role Phone Unavailable Primary Care Provider Unavailabl e Encounter Details Date Type Department Care Team (Late st Contact Info) Description 11/10/2023 Lab Requisition [facility] Laboratory Services [address] [place] [address] [place] [address] [place] [address] Social History Tobacco Use Types Packs/Day Years Used Date Smoking Tobacco: Never Assessed Sex and Gender Information Value Date Recorded Sex Assigned at Not on file Legal Sex Male 9:18 AM EMBEDDED SYSTEMS SOFTWARE DEVELOPER Gender Identity Not on file Sexual Orientation Not on file documented as of this encounter Plan of Treatment Not on file documented as of this encounter Procedures Procedure Name Priority Date/Time Associated Diagnosis Comments CBC WITH DIFFERENTIAL Routine 11/10/2023 6:10 AM EMBEDDED SYSTEMS SOFTWARE DEVELOPER BASIC METABOLIC PANEL Routine 11/10/2023 6:10 AM EMBEDDED SYSTEMS SOFTWARE DEVELOPER documented in this encounter Results * (ABNORMAL) CBC WITH DIFFERENTIAL (11/10/2023 6:10 AM EMBEDDED SYSTEMS SOFTWARE DEVELOPER) WBC 7.9 4.5 - 10.5 K/uL 11/10/2023 6:55 AM EMBEDDED SYSTEMS SOFTWARE DEVELOPER [facility] - [facility] RBC 3.65(L) 4.50 - 5.40 M/uL 11/10/2023 6:55 AM EMBEDDED SYSTEMS SOFTWARE DEVELOPER [facility] HEMOGLOBIN 10.8(L) 13.6 - 16.5 g/dL 11/10/2023 6:55 AM EMBEDDED SYSTEMS SOFTWARE DEVELOPER [facility] - [facility] HEMATOCRIT 33.6(L) 40.0 - 48.0 % 11/10/2023 6:55 AM EMBEDDED SYSTEMS SOFTWARE DEVELOPER [facility] MCV 92.0 82.0 - 99.0 fL 11/10/2023 6:55 AM EMBEDDED SYSTEMS SOFTWARE DEVELOPER [facility] MCH 29.7 27.8 - 34.5 pg 11/10/2023 6:55 AM EMBEDDED SYSTEMS SOFTWARE DEVELOPER [facility] MCHC 32.2(L) 32.5 - 35.5 g/dL 11/10/2023 6:55 AM EMBEDDED SYSTEMS SOFTWARE DEVELOPER [facility] RDW 17.0(H) 11.5 - 14.5 % 11/10/2023 6:55 AM EMBEDDED SYSTEMS SOFTWARE DEVELOPER [facility] PLATELETS 251 160 - 420 K/uL 11/10/2023 6:55 AM EMBEDDED SYSTEMS SOFTWARE DEVELOPER [facility] MPV 9.2 8.7 - 12.7 fL 11/10/2023 6:55 AM EMBEDDED SYSTEMS SOFTWARE DEVELOPER [facility] NEUTROPHILS 62 % 11/10/2023 6:55 AM EMBEDDED SYSTEMS SOFTWARE DEVELOPER [facility] LYMPHOCYTES 22 % 11/10/2023 6:55 AM EMBEDDED SYSTEMS SOFTWARE DEVELOPER [facility] MONOCYTES 5 % 11/10/2023 6:55 AM EMBEDDED SYSTEMS SOFTWARE DEVELOPER [facility] EOSINOPHILS 10 % 11/10/2023 6:55 AM EMBEDDED SYSTEMS SOFTWARE DEVELOPER [facility] BASOPHILS 1 % 11/10/2023 6:55 AM EMBEDDED SYSTEMS SOFTWARE DEVELOPER [facility] SERVICES [facility] NEUTROPHIL ABSOLUTE 4.90 1.90 - 7.00 K/uL 11/10/2023 6:55 AM EMBEDDED SYSTEMS SOFTWARE DEVELOPER [facility] SERVICES [facility] LYMPHOCYTE ABSOLUTE 1.70 0.70 - 4.50 K/uL 11/10/2023 6:55 AM EMBEDDED SYSTEMS SOFTWARE DEVELOPER [facility] SERVICES [facility] MONOCYTE ABSOLUTE 0.40 0.10 - 1.30 K/uL 11/10/2023 6:55 AM EMBEDDED SYSTEMS SOFTWARE DEVELOPER [facility] SERVICES [facility] EOSINOPHIL ABSOLUTE 0.80(H) 0.00 - 0.70 K/uL 11/10/2023 6:55 AM EMBEDDED SYSTEMS SOFTWARE DEVELOPER [facility] BASOPHILS ABSOLUTE 0.10 0.00 - 0.20 K/uL 11/10/2023 6:55 AM [facility] Blood 11/10/2023 6:10 AM EMBEDDED SYSTEMS SOFTWARE DEVELOPER 11/10/2023 6:41 AM EMBEDDED SYSTEMS SOFTWARE DEVELOPER Erik Chairez MD HEMATOLOGY ORDERABLES Final Resu lt [facility] CLIA# [id number] [place] [address] * (ABNORMAL) BASIC METABOLIC PANEL (11/10/2023 6:10 AM EMBEDDED SYSTEMS SOFTWARE DEVELOPER) SODIUM 139 136 - 145 mmol/L 11/10/2023 7:14 AM [facility] POTASSIUM 4.2 3.4 - 5.1 mmol/L 11/10/2023 7:14 AM [facility] CHLORIDE 103 98 - 107 mmol/L 11/10/2023 7:14 AM [facility] CO2 26 22 - 29 mmol/L 11/10/2023 7:14 AM [facility] CALCIUM 9.4 8.6 - 10.4 mg/dL 11/10/2023 7:14 AM [facility] BUN 39(H) 6 - 20 mg/dL 11/10/2023 7:14 AM [facility] CREATININE 0.98 0.67 - 1.17 mg/dL 11/10/2023 7:14 AM [facility] Comment:The GFR result is no t clinically significant on patients <18 or >70 years of age. GLUCOSE 111(H) 74 - 99 mg/dL 11/10/2023 7:14 AM [facility] GFR >60 mL/min/1.7 3 sq meter 11/10/2023 7:14 AM [facility] Comment:eGFR calculated with 2020 CKD-EPI equation. Vegetarian diet, extremely high or low muscle mass, and may affect results. Cystatin C with Glomerular Filtration Rate is a suitable alternative for these patients. ANION GAP 10 8 - 16 mmol/L 11/10/2023 7:14 AM EMBEDDED SYSTEMS SOFTWARE DEVELOPER [facility] Blood 11/10/2023 6:10 AM EMBEDDED SYSTEMS SOFTWARE DEVELOPER 11/10/2023 6:41 AM EMBEDDED SYSTEMS SOFTWARE DEVELOPER Erik Chairez MD CHEMISTRY ORDERABLES Final Resul t [facility] CLIA# [id number] [place] [address] documented in this encounter Visit Diagnoses Not on filedocumented in this encounter Additional Health Concerns Infection Onset Date Last Indicated Resolved Time 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
--- OUTSIDE RECORDS SUMMARY | 2024-11-06 10:18 | XMS_ITS | Encounter Summary ---
Author Organization [facility] Address [address] [place] [address] Care Team Providers Care Computer Instructor Name Role Phone Unavailable Primary Care Provider Unavailabl e Encounter Details Date Type Department Care Team (Late st Contact Info) Description 10/23/2023 Lab Requisition [facility] Laboratory Services [address] [place] [address] [place] [address] [place] [address] Social History Tobacco Use Types Packs/Day Years Used Date Smoking Tobacco: Never Assessed Sex and Gender Information Value Date Recorded Sex Assigned at Not on file Legal Sex Male 9:18 AM INSIDE BARREL LATHE OPERATOR Gender Identity Not on file Sexual Orientation Not on file documented as of this encounter Plan of Treatment Not on file documented as of this encounter Procedures Procedure Name Priority Date/Time Associated Diagnosis Comments CBC WITH DIFFERENTIAL Routine 10/23/2023 2:45 AM INSIDE BARREL LATHE OPERATOR BASIC METABOLIC PANEL Routine 10/23/2023 2:45 AM INSIDE BARREL LATHE OPERATOR documented in this encounter Results * (ABNORMAL) CBC WITH DIFFERENTIAL (10/23/2023 2:45 AM INSIDE BARREL LATHE OPERATOR) WBC 12.7(H) 4.5 - 10.5 K/uL 10/23/2023 11:15 AM INSIDE BARREL LATHE OPERATOR [facility] - [facility] RBC 4.12(L) 4.50 - 5.40 M/uL 10/23/2023 11:15 AM INSIDE BARREL LATHE OPERATOR [facility] HEMOGLOBIN 12.2(L) 13.6 - 16.5 g/dL 10/23/2023 11:15 AM INSIDE BARREL LATHE OPERATOR [facility]ORAT[facility] SERVICES [facility] HEMATOCRIT 38.7(L) 40.0 - 48.0 % 10/23/2023 11:15 AM INSIDE BARREL LATHE OPERATOR [facility] - [facility] MCV 94.0 82.0 - 99.0 fL 10/23/2023 11:15 AM INSIDE BARREL LATHE OPERATOR [facility] SERVICES [facility] MCH 29.7 27.8 - 34.5 pg 10/23/2023 11:15 AM INSIDE BARREL LATHE OPERATOR [facility] SERVICES [facility] MCHC 31.6(L) 32.5 - 35.5 g/dL 10/23/2023 11:15 AM INSIDE BARREL LATHE OPERATOR [facility] RDW 17.3(H) 11.5 - 14.5 % 10/23/2023 11:15 AM INSIDE BARREL LATHE OPERATOR [facility] PLATELETS 264 160 - 420 K/uL 10/23/2023 11:15 AM INSIDE BARREL LATHE OPERATOR [facility] SERVICES [facility] MPV 9.6 8.7 - 12.7 fL 10/23/2023 11:15 AM INSIDE BARREL LATHE OPERATOR [facility] NEUTROPHILS 67 % 10/23/2023 11:15 AM INSIDE BARREL LATHE OPERATOR [facility] LYMPHOCYTES 20 % 10/23/2023 11:15 AM INSIDE BARREL LATHE OPERATOR [facility] MONOCYTES 5 % 10/23/2023 11:15 AM INSIDE BARREL LATHE OPERATOR [facility] EOSINOPHILS 8 % 10/23/2023 11:15 AM INSIDE BARREL LATHE OPERATOR [facility] SERVICES [facility] BASOPHILS 1 % 10/23/2023 11:15 AM INSIDE BARREL LATHE OPERATOR [facility] SERVICES [facility] NEUTROPHIL ABSOLUTE 8.50(H) 1.90 - 7.00 K/uL 10/23/2023 11:15 AM INSIDE BARREL LATHE OPERATOR [facility] SERVICES [facility] LYMPHOCYTE ABSOLUTE 2.50 0.70 - 4.50 K/uL 10/23/2023 11:15 AM INSIDE BARREL LATHE OPERATOR [facility] SERVICES [facility] MONOCYTE ABSOLUTE 0.60 0.10 - 1.30 K/uL 10/23/2023 11:15 AM INSIDE BARREL LATHE OPERATOR [facility] SERVICES [facility] EOSINOPHIL ABSOLUTE 1.00(H) 0.00 - 0.70 K/uL 10/23/2023 11:15 AM INSIDE BARREL LATHE OPERATOR [facility] SERVICES [facility] BASOPHILS ABSOLUTE 0.10 0.00 - 0.20 K/uL 10/23/2023 11:15 AM [facility] Blood Collection / Unknown 10/23/2023 2:45 AM INSIDE BARREL LATHE OPERATOR 10/23/2023 10:44 AM INSIDE BARREL LATHE OPERATOR Erik Chairez MD HEMATOLOGY ORDERABLES Final Resu lt [facility] CLIA# [id number] [place] [address] * (ABNORMAL) BASIC METABOLIC PANEL (10/23/2023 2:45 AM INSIDE BARREL LATHE OPERATOR) SODIUM 139 136 - 145 mmol/L 10/23/2023 11:42 AM [facility] POTASSIUM 4.5 3.4 - 5.1 mmol/L 10/23/2023 11:42 AM [facility] CHLORIDE 100 98 - 107 mmol/L 10/23/2023 11:42 AM [facility] CO2 24 22 - 29 mmol/L 10/23/2023 11:42 AM [facility] CALCIUM 9.6 8.6 - 10.4 mg/dL 10/23/2023 11:42 AM [facility] BUN 36(H) 6 - 20 mg/dL 10/23/2023 11:42 AM [facility] CREATININE 0.95 0.67 - 1.17 mg/dL 10/23/2023 11:42 AM [facility] Comment:The GFR result is no t clinically significant on patients <18 or >70 years of age. GLUCOSE 86 74 - 99 mg/dL 10/23/2023 11:42 AM [facility] GFR >60 mL/min/1.7 3 sq meter 10/23/2023 11:42 AM [facility] Comment:eGFR calculated with 2020 CKD-EPI equation. Vegetarian diet, extremely high or low muscle mass, and may affect results. Cystatin C with Glomerular Filtration Rate is a suitable alternative for these patients. ANION GAP 15 8 - 16 mmol/L 10/23/2023 11:42 AM INSIDE BARREL LATHE OPERATOR [facility] LABORATORY SERVICES [facility] Blood Collection / Unknown 10/23/2023 2:45 AM INSIDE BARREL LATHE OPERATOR 10/23/2023 10:44 AM INSIDE BARREL LATHE OPERATOR Erik Chairez MD CHEMISTRY ORDERABLES Final Resul t 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
--- OUTSIDE RECORDS SUMMARY | 2024-11-06 10:18 | XMS_ITS | Referral Summary ---
Author Organization [facility] Building B Address [address] [place] [address] Care Team Providers Care Exterior Door Installer Name Role Phone Demond Stark MD Primary Care Provider Encounters Date Type Department Care Team Description 11/05/2024 Telephone [facility] Cardiology [address] [place] [phone] Cedric Dumont MD cardiac clearance; samples 10/05/2024 10:45 AM HYDROELECTRIC PLANT ELECTRICAL ENGINEER Office Visit [facility] ENT Specialists - [address] [place] [phone] Laura Oakes, DO Dysfunction of right eustachian tube (Primary Dx) 09/29/2024 Telephone [facility] - [address] [place] [phone] Mery Mauricio MA 09/22/2024 11:00 AM HYDROELECTRIC PLANT ELECTRICAL ENGINEER - 09/22/2024 11:40 AM HYDROELECTRIC PLANT ELECTRICAL ENGINEER Surgery [facility] Operating Room [address] [place] [address] Laura Oakes, DO Right myringotomy with T-tube placement [71551 (CPT )] 09/22/2024 11:21 AM HYDROELECTRIC PLANT ELECTRICAL ENGINEER Anesthesia Event [facility] Operating Room [address] [place] [address] Katherine Barber MD Reynolds, Ethan Emerson, MD 09/22/2024 9:24 AM HYDROELECTRIC PLANT ELECTRICAL ENGINEER - 09/22/2024 1:20 PM HYDROELECTRIC PLANT ELECTRICAL ENGINEER Hospital Encounter [facility] Operating Room [address] [place] [address] Laura Oakes, Dysfunction of right eustachian tube [H69.91] (Primary Dx) Discharge Disposition: Discharge to home or self care 09/07/2024 11:15 AM HYDROELECTRIC PLANT ELECTRICAL ENGINEER Ancillary Procedure [facility] Cardiology [address] [place] [address] [address] [place] [address] Coronary arteriosclerosis in [place] artery; Pre-operative cardiovascular examination 08/31/2024 11:30 AM HYDROELECTRIC PLANT ELECTRICAL ENGINEER Procedure visit [facility] E[facility] Specialists at [address] [place] [address] Renetta Barrientos Au.D. Mixed conductive and sensorineural hearing loss of right ear with restricted hearing of left ear (Primary Dx); Dysfunction of right eustachian tube 08/31/2024 11:15 AM HYDROELECTRIC PLANT ELECTRICAL ENGINEER Office Visit [facility] E[facility] Specialists - [address] [place] [address] Laura Oakes, Dysfunction of right eustachian tube (Primary Dx); Dizziness 08/19/2024 1:45 PM HYDROELECTRIC PLANT ELECTRICAL ENGINEER Office Visit [facility] Cardiology [address] [place] [address] [address] [place] [address] Cedric Dumont MD Coronary arteriosclerosis in [place] artery (Primary Dx); Essential hypertension; Persistent atrial fibrillation (HCC); Multiple-type hyperlipidemia; Chronic anticoagulation; Pre-operative cardiovascular examination from Last 3 Months Allergies Active Allergy Reactions Criticality Noted Date Comments Diphenhydramine Hallucinations Medium 11/27/2023 Was not able to sleep and made him more anxious Lisinopril Cough Low Reaction: Cough, Pravastatin Muscle pain Medium Reaction: Muscular Pain, Quetiapine Other (See comments) Low 06/05/2024 Hallucinations, insomnia Simvastatin Muscle pain Medium Reaction: Muscular Pain, Zczhent-Mhr-Fml Reductase Inhibitors Muscle pain,Other (See comments) Medium 10/03/2015 Pt reports leg weakness/heavine ss when taking zocor. Medications levothyroxine (SYNTHROID) 112 mcg tablet Take 1 tablet (112 mcg total) by mouth novelty twister operator before breakfast Active aspirin 81 mg tablet [...] 08/31/2024 Assessment & Plan (10/05/2024 10:54 AM HYDROELECTRIC PLANT ELECTRICAL ENGINEER): Avoid ear cleaning techniques Avoid water to ears Follow up in 9 months for right ear tube check, earlier with ear drainage Assessment & Plan (08/31/2024 11:40 AM HYDROELECTRIC PLANT ELECTRICAL ENGINEER): Right myringotomy with T-tube placement Risks and [...] 07/09/2024 Assessment & Plan (08/31/2024 11:39 AM HYDROELECTRIC PLANT ELECTRICAL ENGINEER): Right myringotomy with T-tube placement Risks and [...] 08/07/2017 Assessment & Plan (08/07/2017 6:01 PM HYDROELECTRIC PLANT ELECTRICAL ENGINEER): Has had elevated LFTs and a fatty liver. Bradycardia 08/07/2017 Assessment & Plan (08/07/2017 5:58 PM HYDROELECTRIC PLANT ELECTRICAL ENGINEER): Asymptomatic bradycardia, on low-dose metoprolol which may eventually need to be reduced or discontinued. Traumatic subdural hematoma of neuraxis 10/15/19 17 Overview (12/28/2016): Traumatic subdural hematoma without loss of consciousness, sequela Statin intolerance 10/15/2016 Overview (12/28/2016): Statin intolerance Essential hypertension 07/20/2013 Overview (12/28/2016): Hypertension Assessment & Plan (08/07/2017 5:57 PM HYDROELECTRIC PLANT ELECTRICAL ENGINEER): Hypertension is not under good control; reviewing [...] HYPERLIPIDEMIA Assessment & Plan (08/07/2017 6:03 PM HYDROELECTRIC PLANT ELECTRICAL ENGINEER): Has refued further attempts at statin therapy. History of coronary artery bypass surgery 2009 Overview (12/26/2016): AORTOCORONARY BYPASS Coronary arteriosclerosis in [place] artery 12/20 Overview (08/07/2017): CRNRY ATHRSCL NATVE VSSL 2009: Non STEMI and CABG x3 (HOBSON to the LAD, sequential RA to OM and D1) Assessment & Plan (08/07/2017 6:00 PM HYDROELECTRIC PLANT ELECTRICAL ENGINEER): 2009: Non STEMI and CABG x3 (HOBSON [...] 03/04/2018 Assessment & Plan (08/07/2017 5:58 PM HYDROELECTRIC PLANT ELECTRICAL ENGINEER): Patient is going to have knee surgery soon and needs preoperative clearance. Coronary artery disease appears stable. Low risk for cardiac event with proposed surgery. Acute subendocardial infarction ([facility]/HCC) 12/20/2009 03/25/2023 Overview (12/28/2016): SUBENDO INFARCT, SUBSEQ Immunizations Name Administration Dates Next Due Influenza, Split 07/24/2010 Social History Tobacco Use Types Packs/Day Years Used Date Smoking Tobacco: Former Cigarettes Q uit: 1958 Smokeless Tobacco: Former Tobacco Cessation:Counseling Given: Not [...] on file Legal Sex Male 8:49 AM HYDROELECTRIC PLANT ELECTRICAL ENGINEER Gender Identity Not on file Sexual Orientation Not on file Last Filed Vital Signs Vital Sign Reading Time Taken Comments Blood Pressure 160/88 09/22/2024 1:04 PM HYDROELECTRIC PLANT ELECTRICAL ENGINEER Pulse 83 09/22/2024 1:04 PM HYDROELECTRIC PLANT ELECTRICAL ENGINEER Temperature 36.3 C (97.4 F) 09/22/2024 1:04 PM HYDROELECTRIC PLANT ELECTRICAL ENGINEER Respiratory Rate 18 09/22/2024 1:04 PM HYDROELECTRIC PLANT ELECTRICAL ENGINEER Oxygen Saturation 97% 09/22/2024 1:04 PM HYDROELECTRIC PLANT ELECTRICAL ENGINEER Inhaled Oxygen Concentration - - Weight 97.5 kg (214 lb 15.2 oz) 09/22/2024 9:41 AM HYDROELECTRIC PLANT ELECTRICAL ENGINEER Height 182.9 cm (6') 09/22/2024 9:41 AM HYDROELECTRIC PLANT ELECTRICAL ENGINEER Body Mass Index 29.15 09/22/2024 9:41 AM HYDROELECTRIC PLANT ELECTRICAL ENGINEER Plan of Treatment Not on file Medical Devices Implanted Type Area Coal Mill Operator Device Identifier Shelf Expiration Date Model / Serial / Lot [employer] 1.32mm 4.8mm Modify Ear T Tube Ventilation Ultrasil Sterile Blue [id number] - [id number] Implanted:Qty: 1 on 09/22/2024 by Laura Oakes DO at [facility] Right: Ear [employer] 07/13/2034 [id number] / / [id number] Procedures Procedure Name Priority Date/Time Associated Diagnosis Comments RI AN ELECTIVE SUPRAGLOTTIC AIRWAY Routine 09/22/2024 11:28 AM HYDROELECTRIC PLANT ELECTRICAL ENGINEER RI TYMPANOSTOMY GENERAL ANESTHESIA 09/22/2024 11:11 AM HYDROELECTRIC PLANT ELECTRICAL ENGINEER Dysfunction of right eustachian tube ECG 12-LEAD STAT 09/22/2024 9:59 AM HYDROELECTRIC PLANT ELECTRICAL ENGINEER NM MPI SPECT (REST AND/OR STRESS) MULTIPLE STUDIES Schedule Routine, Read Routine (OP Routine) 09/07/2024 12:25 PM HYDROELECTRIC PLANT ELECTRICAL ENGINEER Coronary arteriosclerosis in [place] artery Pre-operative cardiovascular examination AUDIOGRAM Routine 08/31/2024 11:30 AM HYDROELECTRIC PLANT ELECTRICAL ENGINEER Mixed conductive and sensorineural hearing loss of right ear with restricted hearing of left ear from Last 3 Months Results * RI AN ELECTIVE SUPRAGLOTTIC AIRWAY (09/22/2024 11:28 AM HYDROELECTRIC PLANT ELECTRICAL ENGINEER) Narrative Gwendolyn Nicholas CRNA - 09/22/2024 11:28 AM HYDROELECTRIC PLANT ELECTRICAL ENGINEER Gwendolyn Nicholas CRNA 09/22/2024 11:29 AM Airway Patient location: OR Urgency: elective Indications for airway management: anesthesia Difficult airway: no Staff: Placed by: STARCHMAKER: Gwendolyn Nicholas CRNA Emergent airway documentation: Risks [...] * ECG 12 lead (09/22/2024 9:59 AM HYDROELECTRIC PLANT ELECTRICAL ENGINEER) 09/22/2024 9:59 AM HYDROELECTRIC PLANT ELECTRICAL ENGINEER Narrative [facility] - 09/22/2024 12:03 PM HYDROELECTRIC PLANT ELECTRICAL ENGINEER Vent Rate: 80 bpm RR Interval: 746 msec RI Interval: 0 msec QRS Duration: 94 msec QT Interval: 399 msec QTC Interval: 435 msec P-R-T [place]: [address] - 7 - -16 degrees IMPRESSION: ATRIAL FIBRILLATION No prior EKG for comparison. Electronically Signed By: Dr Wali Espinal us Leland Valle MD ECG ORDERABLES Final Result [facility] * NM MPI SPECT (Rest and/or Stress) Multiple Studies (09/07/2024 12:25 PM HYDROELECTRIC PLANT ELECTRICAL ENGINEER) Anatomical Region Laterality Modality Body N/A Nuclear Medicine 09/07/2024 9:51 AM HYDROELECTRIC PLANT ELECTRICAL ENGINEER Narrative 09/08/2024 12:56 PM HYDROELECTRIC PLANT ELECTRICAL ENGINEER [facility] Cardiology [address], [place] [address] [address], [place] [address] P:[phone] P:[phone] MPI Imaging Report Patient Name: LINCOLN KIMBALL L : 1940 Study Date: 09/07/2024 9:51:42 AM Gender: M Tech: KURT RUBIO Location: [facility] Provider: CEDRIC DUMONT Height(Cm): 185.4 BSA: Weight(Kg): [...] Former Smoker, I25.10 Atherosclerotic heart disease of [place] coronary artery without angina pectoris, and Z01.810 [...] mid inferolateral daugherty, consistent with prior inferior MA. Left ventricular ejection fraction is 43 %. There is mild LV dysfunction. There is hypokinesis in the basal inferior segment and mid inferior segment. Electronically Signed By: Cedric Dumont MD 09/07/2024 12:59:59 PM HYDROELECTRIC PLANT ELECTRICAL ENGINEER Electronically Signed By: Do Meier DO, [facility], [facility], [facility] 09/08/2024 12:55:38 PM HYDROELECTRIC PLANT ELECTRICAL ENGINEER Procedure Note Do Meier DO - 09/08/2024 [facility] Cardiology [address] [facility] [address] [id number] [address] [facility] [address], [place] [address] P:[phone] P:[phone] MPI Imaging Report Patient Name: LINCOLN KIMBALL L : 1940 Study Date: 09/07/2024 9:51:42 AM Gender: M Tech: [facility] Location: [facility] Provider: CEDRIC DUMONT Height(Cm): 185.4 BSA: Weight(Kg): 99.3 BMI: 28.89 Order Provider: CEDRIC DUMONT - PHYSICIAN: Referring Physician: Dr. Stark. HCG Physician: Syed Dumont M.D. Interpreting Physician: Do Meier D.O. Stress Supervision: Syed Dumont M.D. PROCEDURES: Pharmacologic SPECT Report: Myocardial perfusion imaging with Tc99M Sestamibi SPECT at rest and stresspost regadenoson (Lexiscan) infusion. INDICATIONS: Hypertension, High Cholesterol, Former Smoker, I25.10 Atheroscleroticheart disease of [place] coronary artery without angina pectoris, and Z01.810 [...] to mid inferolateral daugherty, consistentwith prior inferior MA. Left ventricular ejection fraction is 43 %. There is mild LVdysfunction. There is hypokinesis in the basal inferior segment and mid inferiorsegment. Electronically Signed By: Cedric Dumont MD 09/07/2024 12:59:59 PM HYDROELECTRIC PLANT ELECTRICAL ENGINEER Electronically Signed By: Do Meier, , FACC, FASE, FASNC 09/08/2024 12:55:38 PM HYDROELECTRIC PLANT ELECTRICAL ENGINEER us Cedric Dumont MD IMG NM PROCEDURES Final R esult * AUDIOGRAM (08/31/2024 11:30 AM HYDROELECTRIC PLANT ELECTRICAL ENGINEER) Narrative Renetta Barrientos Au.D. - 08/31/2024 11:30 AM HYDROELECTRIC PLANT ELECTRICAL ENGINEER Renetta Barrientos Au.D. 08/31/2024 1:35 PM Audiogram Performed by: Renetta Barrientos Au.D. Authorized by: Laura Oakes DO us Laura Oakes DO AUDIOLOGY SERVICES ORDERABLE S Final Result from Last 3 Months Insurance MEDICARE MEDICARE [facility] MEDICARE SUPPLEMENT Care Teams Exterior Door Installer Relationship Specialty Start Date End Date Demond Stark MD PCP - General 07/23/11
--- OUTSIDE RECORDS SUMMARY | 2024-11-06 10:18 | XMS_ITS | Encounter Summary ---
Author Organization [facility] Address [address] [place] [address] Care Team Providers Care Vocational Guidance Counselor Name Role Phone Unavailable Primary Care Provider Unavailabl e Encounter Details Date Type Department Care Team (Late st Contact Info) Description 10/17/2023 Lab Requisition [facility] Laboratory Services [address] [place] [address] [place] [address] [place] [address] Social History Tobacco Use Types Packs/Day Years Used Date Smoking Tobacco: Never Assessed Sex and Gender Information Value Date Recorded Sex Assigned at Not on file Legal Sex Male 9:18 AM MECHANICAL ENGINEERING PROFESSOR Gender Identity Not on file Sexual Orientation Not on file documented as of this encounter Plan of Treatment Not on file documented as of this encounter Procedures Procedure Name Priority Date/Time Associated Diagnosis Comments CBC WITH DIFFERENTIAL Routine 10/17/2023 2:15 AM MECHANICAL ENGINEERING PROFESSOR MAGNESIUM LEVEL Routine 10/17/2023 2:15 AM MECHANICAL ENGINEERING PROFESSOR RENAL FUNCTION PANEL Routine 10/17/2023 2:15 AM MECHANICAL ENGINEERING PROFESSOR documented in this encounter Results * MAGNESIUM LEVEL (10/17/2023 2:15 AM MECHANICAL ENGINEERING PROFESSOR) MAGNESIUM 2.3 1.6 - 2.6 mg/dL 10/17/2023 9:56 AM MECHANICAL ENGINEERING PROFESSOR [facility] Blood Collection / Unknown 10/17/2023 2:15 AM MECHANICAL ENGINEERING PROFESSOR 10/17/2023 9:00 AM MECHANICAL ENGINEERING PROFESSOR Erik Chairez MD CHEMISTRY ORDERABLES Final Resul t [facility] CLIA# [id number] [place] [address] * (ABNORMAL) CBC WITH DIFFERENTIAL (10/17/2023 2:15 AM MECHANICAL ENGINEERING PROFESSOR) WBC 6.7 4.5 - 10.5 K/uL 10/17/2023 9:34 AM MECHANICAL ENGINEERING PROFESSOR [facility] RBC 3.73(L) 4.50 - 5.40 M/uL 10/17/2023 9:34 AM MECHANICAL ENGINEERING PROFESSOR [facility] HEMOGLOBIN 11.1(L) 13.6 - 16.5 g/dL 10/17/2023 9:34 AM MECHANICAL ENGINEERING PROFESSOR [facility] HEMATOCRIT 35.0(L) 40.0 - 48.0 % 10/17/2023 9:34 AM MECHANICAL ENGINEERING PROFESSOR [facility] MCV 93.8 82.0 - 99.0 fL 10/17/2023 9:34 AM MECHANICAL ENGINEERING PROFESSOR [facility] MCH 29.8 27.8 - 34.5 pg 10/17/2023 9:34 AM MECHANICAL ENGINEERING PROFESSOR [facility] MCHC 31.8(L) 32.5 - 35.5 g/dL 10/17/2023 9:34 AM MECHANICAL ENGINEERING PROFESSOR [facility] RDW 17.4(H) 11.5 - 14.5 % 10/17/2023 9:34 AM MECHANICAL ENGINEERING PROFESSOR [facility] PLATELETS 214 160 - 420 K/uL 10/17/2023 9:34 AM MECHANICAL ENGINEERING PROFESSOR [facility] MPV 9.5 8.7 - 12.7 fL 10/17/2023 9:34 AM MECHANICAL ENGINEERING PROFESSOR [facility] NEUTROPHILS 50 % 10/17/2023 9:34 AM MECHANICAL ENGINEERING PROFESSOR [facility] LYMPHOCYTES 28 % 10/17/2023 9:34 AM MECHANICAL ENGINEERING PROFESSOR [facility] MONOCYTES 8 % 10/17/2023 9:34 AM MECHANICAL ENGINEERING PROFESSOR [facility] EOSINOPHILS 13 % 10/17/2023 9:34 AM MECHANICAL ENGINEERING PROFESSOR [facility] BASOPHILS 0 % 10/17/2023 9:34 AM MECHANICAL ENGINEERING PROFESSOR [facility] NEUTROPHIL ABSOLUTE 3.40 1.90 - 7.00 K/uL 10/17/2023 9:34 AM MECHANICAL ENGINEERING PROFESSOR [facility] LYMPHOCYTE ABSOLUTE 1.90 0.70 - 4.50 K/uL 10/17/2023 9:34 AM MECHANICAL ENGINEERING PROFESSOR [facility] MONOCYTE ABSOLUTE 0.50 0.10 - 1.30 K/uL 10/17/2023 9:34 AM MECHANICAL ENGINEERING PROFESSOR [facility] EOSINOPHIL ABSOLUTE 0.90(H) 0.00 - 0.70 K/uL 10/17/2023 9:34 AM MECHANICAL ENGINEERING PROFESSOR [facility] BASOPHILS ABSOLUTE 0.00 0.00 - 0.20 K/uL 10/17/2023 9:34 AM MECHANICAL ENGINEERING PROFESSOR [facility] Blood Collection / Unknown 10/17/2023 2:15 AM MECHANICAL ENGINEERING PROFESSOR 10/17/2023 9:00 AM MECHANICAL ENGINEERING PROFESSOR us Erik Chairez MD HEMATOLOGY ORDERABLES Final Resu lt [facility] CLIA# [id number] [place] [address] * (ABNORMAL) RENAL FUNCTION PANEL (10/17/2023 2:15 AM MECHANICAL ENGINEERING PROFESSOR) SODIUM 137 136 - 145 mmol/L 10/17/2023 9:56 AM [facility] Cat Amania [facility] POTASSIUM 4.0 3.4 - 5.1 mmol/L 10/17/2023 9:56 AM [facility] CHLORIDE 99 98 - 107 mmol/L 10/17/2023 9:56 AM [facility] Cat Amania [facility] CO2 23 22 - 29 mmol/L 10/17/2023 9:56 AM [facility] Cat Amania [facility] CALCIUM 9.2 8.6 - 10.4 mg/dL 10/17/2023 9:56 AM [facility] Cat [facility]mania [facility] BUN 42(H) 6 - 20 mg/dL 10/17/2023 9:56 AM [facility] CREATININE 1.00 0.67 - 1.17 mg/dL 10/17/2023 9:56 AM [facility] Comment:The GFR result is no t clinically significant on patients <18 or >70 years of age. GLUCOSE 72(L) 74 - 99 mg/dL 10/17/2023 9:56 AM [facility] ALBUMIN 3.2(L) 3.5 - 5.2 g/dL 10/17/2023 9:56 AM [facility] PHOSPHORUS 2.9 2.5 - 4.5 mg/dL 10/17/2023 9:56 AM [facility] GFR >60 mL/min/1.7 3 sq meter 10/17/2023 9:56 AM [facility] Comment:eGFR calculated with 2020 CKD-EPI equation. Vegetarian diet, extremely high or low muscle mass, and may affect results. Cystatin C with Glomerular Filtration Rate is a suitable alternative for these patients. 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
--- OUTSIDE RECORDS SUMMARY | 2024-11-06 10:18 | XMS_ITS | Encounter Summary ---
Author Organization [facility] Health Address [address] [place] [address] Care Team Providers Care Steam Box Hand Name Role Phone Demond Stark MD Primary Care Provider [phone] Encounter Details Date Type Department Care Team (Late Contact Info) Description 06/13/2023 Lab Requisition [facility] Derm[facility] Lab [address] [place] [id number] Jaxon Anaya MD [address] [place] [address] Social History Tobacco Use Types Packs/Day Years [...] Encounters Date Type Department Care Team (Late Contact Info) Description 01/01/2025 9:30 AM CDT Office Visit [facility] - Neurology [address] [place] [id number] Alberto Jeffers MD [address] [facility] [place] [phone] documented as of this encounter Procedures Procedure Name Priority Date/Time Associated Diagnosis Comments DERMATOPATHOLOGY Routine 06/12/2023 12:0 0 AM CDT documented in this encounter Results * DERMATOPATHOLOGY (06/12/2023 12:00 AM CDT) Case Report Dermatopathology Report Case: [id number] Authorizing Provider: Jaxon Anaya MD Collected: 06/12/2023 12:00 AM Ordering Location: [facility] DermPath Lab Received: 06/13/2023 01:28 PM Pathologist: Meliza Womack MD Specimen: Skin, mid medial left thigh 3:42 PM CDT DERMATOPATHOLOGY LABORATORY Final Diagnosis Specimen A. 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 The specimen consists of a shave biopsy measuring [id number] mm. Jar 0. 3:42 PM CDT DERMATOPATHOLOGY LABORATORY Microscopic Description Specimen A. SKIN, mid medial left thigh: There is psoriasiform hyperplasia of the epidermis with focal parakeratosis and spongiosis. There is a superficial, mainly lymphohistiocytic inflammatory infiltrate with eosinophils. Many of the eosinophils are present in the papillary dermis. GMS fails to highlight fungal organisms. COMMENT: The histological differential diagnosis includes a contact dermatitis, nummular eczema, an eczematous drug eruption, and less likely the urticarial phase of bullous pemphigoid. 3:42 PM CDT DERMATOPATHOLOGY LABORATORY Disclaimer An external and internal positive and negative controls are appropriate for the histochemical, immunohistochemical and immunofluorescence stain(s) in this case (if any), except where stated explicitly. The performance characteristics of the stain(s) cited in this report were developed and its performance characteristic determined by the Dermatopathology Laboratory at [facility], directed by Dr. Georgina Young. These tests need not be, and therefore are not, approved by the [place] Food and Drug Administration. The tests are used for clinical purposes. Billing Codes Specimen Charges Stain Charges 36915 1 27235 1 3 3:42 PM CDT DERMATOPATHOLOGY LABORATORY Embedded Images 3 3:42 PM CDT DERMATOPATHOLOGY LABORATORY Pathology/Cytolog y TISSUE SPECIMEN FROM SKIN / Unknown 06/12/2023 06/13/2023 1:28 PM CDT Jaxon Anaya MD LAB - PATHOLOGY/CYTO LOGY ORDERABLES DERMATOPATHOLOGY LABORATORY [facility] - Department of Dermatology [facility] [address] [place] [address], [address] [phone] documented in this encounter Visit Diagnoses Not on filedocumented in this encounter Care Teams Steam Box Hand Relationship Specialty Start Date End Date Demond Stark MD [address] [place] [address] PCP - General 10/03/15 documented as of this encounter
--- OUTSIDE RECORDS SUMMARY | 2024-11-06 10:18 | XMS_ITS | Encounter Summary ---
Author Organization [facility] Address [address] [place] [address] Care Team Providers Care Game Developer Name Role Phone Unavailable Primary Care Provider Unavailabl e Encounter Details Date Type Department Care Team (Late st Contact Info) Description 11/07/2023 Lab Requisition [facility] Laboratory Services [address] [place] [address] [place] [address] [place] [address] Social History Tobacco Use Types Packs/Day Years Used Date Smoking Tobacco: Never Assessed Sex and Gender Information Value Date Recorded Sex Assigned at Not on file Legal Sex Male 9:18 AM FORM MAKER Gender Identity Not on file Sexual Orientation Not on file documented as of this encounter Plan of Treatment Not on file documented as of this encounter Procedures Procedure Name Priority Date/Time Associated Diagnosis Comments THEOPHYLLINE LEVEL Routine 11/07/2023 8: 40 AM FORM MAKER documented in this encounter Results * (ABNORMAL) THEOPHYLLINE LEVEL (11/07/2023 8:40 AM FORM MAKER) THEOPHYLLINE LEVEL <0.8(L) 10.0 - 20.0 ug/mL 11/07/2023 3:56 PM FORM MAKER [facility] Comment:Verified by repeat a nalysis. TDM LAST DATE, TIME, AMT (TIFFANIE) Patient unable to state date. time or dose. 11/07/2023 3:56 PM FORM MAKER [facility] LAST DOSE AMT, THEOPHYLLINE Other 11/07/2023 3:56 PM FORM MAKER [facility] Comment:80 mg Blood 11/07/2023 8:40 AM FORM MAKER 11/07/2023 10:34 AM FORM MAKER Narrative [facility] - 11/07/2023 3:56 PM FORM MAKER Theophylline Toxic Levels: 6 months - Adult = >20.0 ug/mL 0 - 6 months = >15.0 ug/mL Erik Chairez MD CHEMISTRY ORDERABLES Final Resul t [facility] CLIA# [id number] [address] [place] [address] [facility] CLIA# [id number] [address] [place] [address] documented in this encounter Visit Diagnoses Not on filedocumented in this encounter Additional Health Concerns Infection Onset Date Last Indicated Resolved Time CRE-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
--- OUTSIDE RECORDS SUMMARY | 2024-11-06 10:18 | XMS_ITS | Encounter Summary ---
Author Organization [facility] Address [address] [place] [address] Care Team Providers Care Business Integration Analyst Name Role Phone Unavailable Primary Care Provider Unavailabl e Encounter Details Date Type Department Care Team (Late st Contact Info) Description 10/29/2023 Lab Requisition [facility] [address] [place] [address] [place] [address] [place] [address] Social History Tobacco Use Types Packs/Day Years Used Date Smoking Tobacco: Never Assessed Sex and Gender Information Value Date Recorded Sex Assigned at Not on file Legal Sex Male 9:18 AM HOME SERVICE DEMONSTRATOR Gender Identity Not on file Sexual Orientation Not on file documented as of this encounter Plan of Treatment Not on file documented as of this encounter Procedures Procedure Name Priority Date/Time Associated Diagnosis Comments CBC WITH DIFFERENTIAL Routine 10/29/2023 3:20 AM HOME SERVICE DEMONSTRATOR BASIC METABOLIC PANEL Routine 10/29/2023 3:20 AM HOME SERVICE DEMONSTRATOR documented in this encounter Results * (ABNORMAL) CBC WITH DIFFERENTIAL (10/29/2023 3:20 AM HOME SERVICE DEMONSTRATOR) WBC 8.0 4.5 - 10.5 K/uL 10/29/2023 8:18 AM HOME SERVICE DEMONSTRATOR [facility] RBC 3.85(L) 4.50 - 5.40 M/uL 10/29/2023 8:18 AM HOME SERVICE DEMONSTRATOR [facility] HEMOGLOBIN 11.6(L) 13.6 - 16.5 g/dL 10/29/2023 8:18 AM HOME SERVICE DEMONSTRATOR [facility] HEMATOCRIT 35.7(L) 40.0 - 48.0 % 10/29/2023 8:18 AM HOME SERVICE DEMONSTRATOR [facility] MCV 92.6 82.0 - 99.0 fL 10/29/2023 8:18 AM HOME SERVICE DEMONSTRATOR [facility] MCH 30.0 27.8 - 34.5 pg 10/29/2023 8:18 AM HOME SERVICE DEMONSTRATOR [facility] MCHC 32.4(L) 32.5 - 35.5 g/dL 10/29/2023 8:18 AM HOME SERVICE DEMONSTRATOR [facility] RDW 17.3(H) 11.5 - 14.5 % 10/29/2023 8:18 AM HOME SERVICE DEMONSTRATOR [facility] PLATELETS 255 160 - 420 K/uL 10/29/2023 8:18 AM HOME SERVICE DEMONSTRATOR [facility] MPV 9.9 8.7 - 12.7 fL 10/29/2023 8:18 AM HOME SERVICE DEMONSTRATOR [facility] NEUTROPHILS 61 % 10/29/2023 8:18 AM HOME SERVICE DEMONSTRATOR [facility] LYMPHOCYTES 22 % 10/29/2023 8:18 AM HOME SERVICE DEMONSTRATOR [facility] MONOCYTES 6 % 10/29/2023 8:18 AM HOME SERVICE DEMONSTRATOR [facility] EOSINOPHILS 11 % 10/29/2023 8:18 AM HOME SERVICE DEMONSTRATOR [facility] BASOPHILS 1 % 10/29/2023 8:18 AM HOME SERVICE DEMONSTRATOR [facility] NEUTROPHIL ABSOLUTE 4.90 1.90 - 7.00 K/uL 10/29/2023 8:18 AM HOME SERVICE DEMONSTRATOR [facility] LYMPHOCYTE ABSOLUTE 1.70 0.70 - 4.50 K/uL 10/29/2023 8:18 AM HOME SERVICE DEMONSTRATOR [facility] MONOCYTE ABSOLUTE 0.50 0.10 - 1.30 K/uL 10/29/2023 8:18 AM HOME SERVICE DEMONSTRATOR [facility] EOSINOPHIL ABSOLUTE 0.80(H) 0.00 - 0.70 K/uL 10/29/2023 8:18 AM HOME SERVICE DEMONSTRATOR [facility] BASOPHILS ABSOLUTE 0.00 0.00 - 0.20 K/uL 10/29/2023 8:18 AM [facility] Blood Collection / Unknown 10/29/2023 3:20 AM HOME SERVICE DEMONSTRATOR 10/29/2023 7:59 AM HOME SERVICE DEMONSTRATOR Erik Chairez MD HEMATOLOGY ORDERABLES Final Resu lt [facility] CLIA# [id number] [address] [place] [address] * (ABNORMAL) BASIC METABOLIC PANEL (10/29/2023 3:20 AM HOME SERVICE DEMONSTRATOR) SODIUM 141 136 - 145 mmol/L 10/29/2023 8:38 AM [facility] POTASSIUM 4.5 3.4 - 5.1 mmol/L 10/29/2023 8:38 AM [facility] CHLORIDE 101 98 - 107 mmol/L 10/29/2023 8:38 AM [facility] CO2 28 22 - 29 mmol/L 10/29/2023 8:38 AM [facility] CALCIUM 10.2 8.6 - 10.4 mg/dL 10/29/2023 8:38 AM [facility] BUN 42(H) 6 - 20 mg/dL 10/29/2023 8:38 AM [facility] CREATININE 1.05 0.67 - 1.17 mg/dL 10/29/2023 8:38 AM [facility] Comment:The GFR result is no t clinically significant on patients <18 or >70 years of age. GLUCOSE 112(H) 74 - 99 mg/dL 10/29/2023 8:38 AM [facility] GFR >60 mL/min/1.7 3 sq meter 10/29/2023 8:38 AM [facility] Comment:eGFR calculated with 2020 CKD-EPI equation. Vegetarian diet, extremely high or low muscle mass, and may affect results. Cystatin C with Glomerular Filtration Rate is a suitable alternative for these patients. ANION GAP 12 8 - 16 mmol/L 10/29/2023 8:38 AM HOME SERVICE DEMONSTRATOR [facility] Blood Collection / Unknown 10/29/2023 3:20 AM HOME SERVICE DEMONSTRATOR 10/29/2023 7:59 AM HOME SERVICE DEMONSTRATOR Erik Chairez MD CHEMISTRY ORDERABLES Final Resul t 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
--- OUTSIDE RECORDS SUMMARY | 2024-11-06 10:18 | XMS_ITS | Encounter Summary ---
Author Organization Address [address] [place] [address] Care Team Providers Care Side Laster Name Role Phone Unavailable Primary Care Provider Unavailabl e Encounter Details Date Type Department Care Team (Late st Contact Info) Description 10/26/2023 Lab Requisition [facility] [address] [place] [address] [place] [address] [place] [address] Social History Tobacco Use Types Packs/Day Years Used Date Smoking Tobacco: Never Assessed Sex and Gender Information Value Date Recorded Sex Assigned at Not on file Legal Sex Male 9:18 AM LACTATION NURSE Gender Identity Not on file Sexual Orientation Not on file documented as of this encounter Plan of Treatment Not on file documented as of this encounter Procedures Procedure Name Priority Date/Time Associated Diagnosis Comments CBC WITH DIFFERENTIAL Routine 10/26/2023 3:20 AM LACTATION NURSE BASIC METABOLIC PANEL Routine 10/26/2023 3:20 AM LACTATION NURSE documented in this encounter Results * (ABNORMAL) CBC WITH DIFFERENTIAL (10/26/2023 3:20 AM LACTATION NURSE) WBC 9.2 4.5 - 10.5 K/uL 10/26/2023 5:32 AM LACTATION NURSE [facility] RBC 3.83(L) 4.50 - 5.40 M/uL 10/26/2023 5:32 AM LACTATION NURSE [facility] HEMOGLOBIN 11.4(L) 13.6 - 16.5 g/dL 10/26/2023 5:32 AM LACTATION NURSE [facility] HEMATOCRIT 35.4(L) 40.0 - 48.0 % 10/26/2023 5:32 AM LACTATION NURSE [facility] MCV 92.4 82.0 - 99.0 fL 10/26/2023 5:32 AM LACTATION NURSE [facility] MCH 29.6 27.8 - 34.5 pg 10/26/2023 5:32 AM LACTATION NURSE [facility] MCHC 32.0(L) 32.5 - 35.5 g/dL 10/26/2023 5:32 AM LACTATION NURSE [facility] RDW 17.3(H) 11.5 - 14.5 % 10/26/2023 5:32 AM LACTATION NURSE [facility] PLATELETS 240 160 - 420 K/uL 10/26/2023 5:32 AM LACTATION NURSE [facility] MPV 9.3 8.7 - 12.7 fL 10/26/2023 5:32 AM LACTATION NURSE [facility] NEUTROPHILS 69 % 10/26/2023 5:32 AM LACTATION NURSE [facility] LYMPHOCYTES 21 % 10/26/2023 5:32 AM LACTATION NURSE [facility] MONOCYTES 6 % 10/26/2023 5:32 AM LACTATION NURSE [facility] EOSINOPHILS 4 % 10/26/2023 5:32 AM LACTATION NURSE [facility] BASOPHILS 1 % 10/26/2023 5:32 AM LACTATION NURSE [facility] NEUTROPHIL ABSOLUTE 6.30 1.90 - 7.00 K/uL 10/26/2023 5:32 AM LACTATION NURSE [facility] LYMPHOCYTE ABSOLUTE 1.90 0.70 - 4.50 K/uL 10/26/2023 5:32 AM [facility] MONOCYTE ABSOLUTE 0.50 0.10 - 1.30 K/uL 10/26/2023 5:32 AM LACTATION NURSE [facility] EOSINOPHIL ABSOLUTE 0.40 0.00 - 0.70 K/uL 10/26/2023 5:32 AM LACTATION NURSE [facility] BASOPHILS ABSOLUTE 0.00 0.00 - 0.20 K/uL 10/26/2023 5:32 AM [facility] Blood Collection / Unknown 10/26/2023 3:20 AM LACTATION NURSE 10/26/2023 4:57 AM LACTATION NURSE Erik Chairez MD HEMATOLOGY ORDERABLES Final Resu lt [facility] CLIA# [id number] [address] [address] [place] [address] * (ABNORMAL) BASIC METABOLIC PANEL (10/26/2023 3:20 AM LACTATION NURSE) SODIUM 137 136 - 145 mmol/L 10/26/2023 5:58 AM [facility] POTASSIUM 4.2 3.4 - 5.1 mmol/L 10/26/2023 5:58 AM [facility] CHLORIDE 100 98 - 107 mmol/L 10/26/2023 5:58 AM [facility] CO2 27 22 - 29 mmol/L 10/26/2023 5:58 AM [facility] CALCIUM 9.8 8.6 - 10.4 mg/dL 10/26/2023 5:58 AM [facility] BUN 39(H) 6 - 20 mg/dL 10/26/2023 5:58 AM [facility] CREATININE 1.01 0.67 - 1.17 mg/dL 10/26/2023 5:58 AM [facility] Comment:The GFR result is no t clinically significant on patients <18 or >70 years of age. GLUCOSE 110(H) 74 - 99 mg/dL 10/26/2023 5:58 AM [facility] GFR >60 mL/min/1.7 3 sq meter 10/26/2023 5:58 AM [facility] Comment:eGFR calculated with 2020 CKD-EPI equation. Vegetarian diet, extremely high or low muscle mass, and may affect results. Cystatin C with Glomerular Filtration Rate is a suitable alternative for these patients. ANION GAP 10 8 - 16 mmol/L 10/26/2023 5:58 AM LACTATION NURSE [facility] Blood Collection / Unknown 10/26/2023 3:20 AM LACTATION NURSE 10/26/2023 4:57 AM LACTATION NURSE Erik Chairez MD CHEMISTRY ORDERABLES Final Resul t [facility] CLIA# [id number] [address] [place] [address] documented in this encounter Visit Diagnoses Not on filedocumented in this encounter Additional Health Concerns Infection Onset Date Last Indicated Resolved Time CRE-CP Comment:10/09/23 Klebsiella pneumoniae, Sputum 10/09/2023 10/09/2023 05/28/2024 2:37 PM C 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
--- OUTSIDE RECORDS SUMMARY | 2024-11-06 10:18 | XMS_ITS | Encounter Summary ---
Author Organization [facility] Address 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 Gender Identity Not on file Sexual Orientation Not on file documented as of this encounter Plan of Treatment Not on file documented as of this encounter Procedures Procedure Name Priority Date/Time Associated Diagnosis Comments CBC WITH DIFFERENTIAL Routine 11/01/2023 4:20 AM BUSINESS MACHINE MECHANIC BASIC METABOLIC PANEL Routine 11/01/2023 4:20 AM BUSINESS MACHINE MECHANIC documented in this encounter Results * (ABNORMAL) CBC WITH DIFFERENTIAL (11/01/2023 4:20 AM BUSINESS MACHINE MECHANIC) WBC 8.5 4.5 - 10.5 K/uL 11/01/2023 8:48 AM BUSINESS MACHINE MECHANIC [facility] - [facility] RBC 3.87(L) 4.50 - 5.40 M/uL 11/01/2023 8:48 AM BUSINESS MACHINE MECHANIC [facility] HEMOGLOBIN 11.2(L) 13.6 - 16.5 g/dL 11/01/2023 8:48 AM BUSINESS MACHINE MECHANIC [facility] HEMATOCRIT 34.9(L) 40.0 - 48.0 % 11/01/2023 8:48 AM BUSINESS MACHINE MECHANIC [facility] MCV 90.3 82.0 - 99.0 fL 11/01/2023 8:48 AM BUSINESS MACHINE MECHANIC [facility] - [facility] MCH 29.0 27.8 - 34.5 pg 11/01/2023 8:48 AM BUSINESS MACHINE MECHANIC [facility] MCHC 32.1(L) 32.5 - 35.5 g/dL 11/01/2023 8:48 AM BUSINESS MACHINE MECHANIC [facility] RDW 17.0(H) 11.5 - 14.5 % 11/01/2023 8:48 AM BUSINESS MACHINE MECHANIC [facility] PLATELETS 246 160 - 420 K/uL 11/01/2023 8:48 AM BUSINESS MACHINE MECHANIC [facility] MPV 9.7 8.7 - 12.7 fL 11/01/2023 8:48 AM BUSINESS MACHINE MECHANIC [facility] NEUTROPHILS 53 % 11/01/2023 8:48 AM BUSINESS MACHINE MECHANIC [facility] LYMPHOCYTES 29 % 11/01/2023 8:48 AM BUSINESS MACHINE MECHANIC [facility] MONOCYTES 7 % 11/01/2023 8:48 AM BUSINESS MACHINE MECHANIC [facility] EOSINOPHILS 12 % 11/01/2023 8:48 AM BUSINESS MACHINE MECHANIC [facility] BASOPHILS 1 % 11/01/2023 8:48 AM BUSINESS MACHINE MECHANIC [facility] NEUTROPHIL ABSOLUTE 4.50 1.90 - 7.00 K/uL 11/01/2023 8:48 AM BUSINESS MACHINE MECHANIC [facility] LYMPHOCYTE ABSOLUTE 2.40 0.70 - 4.50 K/uL 11/01/2023 8:48 AM BUSINESS MACHINE MECHANIC [facility] MONOCYTE ABSOLUTE 0.60 0.10 - 1.30 K/uL 11/01/2023 8:48 AM BUSINESS MACHINE MECHANIC [facility] EOSINOPHIL ABSOLUTE 1.00(H) 0.00 - 0.70 K/uL 11/01/2023 8:48 AM BUSINESS MACHINE MECHANIC [facility] BASOPHILS ABSOLUTE 0.00 0.00 - 0.20 K/uL 11/01/2023 8:48 AM [facility] Blood Collection / Unknown 11/01/2023 4:20 AM BUSINESS MACHINE MECHANIC 11/01/2023 7:57 AM BUSINESS MACHINE MECHANIC Erik Chairez MD HEMATOLOGY ORDERABLES Final Resu lt [facility] CLIA# [id number] [address] [place] [address] * (ABNORMAL) BASIC METABOLIC PANEL (11/01/2023 4:20 AM BUSINESS MACHINE MECHANIC) SODIUM 139 136 - 145 mmol/L 11/01/2023 9:12 AM [facility] POTASSIUM 3.7 3.4 - 5.1 mmol/L 11/01/2023 9:12 AM [facility] CHLORIDE 100 98 - 107 mmol/L 11/01/2023 9:12 AM [facility] CO2 27 22 - 29 mmol/L 11/01/2023 9:12 AM [facility] CALCIUM 9.8 8.6 - 10.4 mg/dL 11/01/2023 9:12 AM [facility] BUN 41(H) 6 - 20 mg/dL 11/01/2023 9:12 AM [facility] CREATININE 0.93 0.67 - 1.17 mg/dL 11/01/2023 9:12 AM [facility] Comment:The GFR result is no t clinically significant on patients <18 or >70 years of age. GLUCOSE 109(H) 74 - 99 mg/dL 11/01/2023 9:12 AM [facility] GFR >60 mL/min/1.7 3 sq meter 11/01/2023 9:12 AM [facility] Comment:eGFR calculated with 2020 CKD-EPI equation. Vegetarian diet, extremely high or low muscle mass, and may affect results. Cystatin C with Glomerular Filtration Rate is a suitable alternative for these patients. 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
--- OUTSIDE RECORDS SUMMARY | 2024-11-06 10:18 | XMS_ITS | Encounter Summary ---
Author Organization [facility] Address [address] [place] [address] Care Team Providers Care Squilgeer Name Role Phone Unavailable Primary Care Provider Unavailabl e Encounter Details Date Type Department Care Team (Late st Contact Info) Description 10/14/2023 Lab Requisition [facility] Laboratory Services [address] [place] [address] [place] [address] [place] [address] Social History Tobacco Use Types Packs/Day Years Used Date Smoking Tobacco: Never Assessed Sex and Gender Information Value Date Recorded Sex Assigned at Not on file Legal Sex Male 9:18 AM IS PROJECT MANAGER Gender Identity Not on file Sexual Orientation Not on file documented as of this encounter Plan of Treatment Not on file documented as of this encounter Procedures Procedure Name Priority Date/Time Associated Diagnosis Comments CBC WITH DIFFERENTIAL Routine 10/14/2023 2:35 AM IS PROJECT MANAGER TRIGLYCERIDE Routine 10/14/2023 2:35 AM IS PROJECT MANAGER PHOSPHORUS Routine 10/14/2023 2:35 AM IS PROJECT MANAGER MAGNESIUM LEVEL Routine 10/14/2023 2:35 AM IS PROJECT MANAGER COMPREHENSIVE METABOLIC PANEL Routine 10/14/2023 2:35 AM IS PROJECT MANAGER documented in this encounter Results * (ABNORMAL) TRIGLYCERIDE (10/14/2023 2:35 AM IS PROJECT MANAGER) TRIGLYCERIDE 161(H) <150 mg/dL 10/14/2023 8:26 AM IS PROJECT MANAGER [facility] Blood Collection / Unknown 10/14/2023 2:35 AM IS PROJECT MANAGER 10/14/2023 7:22 AM IS PROJECT MANAGER Narrative [facility] - 10/14/2023 8:26 AM IS PROJECT MANAGER TRIGLYCERIDES mg/dL Normal < 150 Borderline High 150 - 199 High 200 - 499 Very High >= 500 Based on AHA/NCEP Guidelines. us Erik Chairez MD CHEMISTRY ORDERABLES Final Resul t Performing Organization Address City/[facility]/ZIP Co de Phone Number [facility] CLIA# [id number] [address] [place] [address] * PHOSPHORUS (10/14/2023 2:35 AM IS PROJECT MANAGER) PHOSPHORUS 3.4 2.5 - 4.5 mg/dL 10/14/2023 8:26 AM IS PROJECT MANAGER [facility] Blood Collection / Unknown 10/14/2023 2:35 AM IS PROJECT MANAGER 10/14/2023 7:22 AM IS PROJECT MANAGER us Erik Chairez MD CHEMISTRY ORDERABLES Final Resul t Performing Organization Address City/[facility] Co de Phone Number [facility]# [id number] [address] [place] [address] * MAGNESIUM LEVEL (10/14/2023 2:35 AM IS PROJECT MANAGER) MAGNESIUM 2.5 1.6 - 2.6 mg/dL 10/14/2023 8:26 AM IS PROJECT MANAGER [facility] [place] [facility] Blood Collection / Unknown 10/14/2023 2:35 AM IS PROJECT MANAGER 10/14/2023 7:22 AM IS PROJECT MANAGER us Erik Chairez MD CHEMISTRY ORDERABLES Final Resul t Performing Organization Address City/[facility]/ZIP Co de Phone Number [facility]# [id number] [address] [place] [address] * (ABNORMAL) CBC WITH DIFFERENTIAL (10/14/2023 2:35 AM IS PROJECT MANAGER) [facility] WBC 9.2 4.5 - 10.5 K/uL 10/14/2023 8:02 AM [facility] RBC 3.58(L) 4.50 - 5.40 M/uL 10/14/2023 8:02 AM [facility] HEMOGLOBIN 11.0(L) 13.6 - 16.5 g/dL 10/14/2023 8:02 AM [facility] HEMATOCRIT 33.5(L) 40.0 - 48.0 % 10/14/2023 8:02 AM [facility] MCV 93.6 82.0 - 99.0 fL 10/14/2023 8:02 AM [facility] MCH 30.6 27.8 - 34.5 pg 10/14/2023 8:02 AM [facility] [place] [facility] MCHC 32.7 32.5 - 35.5 g/dL 10/14/2023 8:02 AM [facility] [place] [facility] RDW 17.7(H) 11.5 - 14.5 % 10/14/2023 8:02 AM [facility] PLATELETS 214 160 - 420 K/uL 10/14/2023 8:02 AM [facility] [place] [facility] MPV 9.2 8.7 - 12.7 fL 10/14/2023 8:02 AM [facility] [place] [facility] NEUTROPHILS 58 % 10/14/2023 8:02 AM [facility] LYMPHOCYTES 24 % 10/14/2023 8:02 AM [facility] MONOCYTES 8 % 10/14/2023 8:02 AM IS PROJECT MANAGER [facility] EOSINOPHILS 9 % 10/14/2023 8:02 AM [facility] BASOPHILS 0 % 10/14/2023 8:02 AM [facility] NEUTROPHIL ABSOLUTE 5.40 1.90 - 7.00 K/uL 10/14/2023 8:02 AM [facility] [place] LYMPHOCYTE ABSOLUTE 2.20 0.70 - 4.50 K/uL 10/14/2023 8:02 AM [facility] MONOCYTE ABSOLUTE 0.70 0.10 - 1.30 K/uL 10/14/2023 8:02 AM [facility] EOSINOPHIL ABSOLUTE 0.90(H) 0.00 - 0.70 K/uL 10/14/2023 8:02 AM [facility] BASOPHILS ABSOLUTE 0.00 0.00 - 0.20 K/uL 10/14/2023 8:02 AM [facility] Blood Collection / Unknown 10/14/2023 2:35 AM IS PROJECT MANAGER 10/14/2023 7:22 AM IS PROJECT MANAGER Erik Chairez MD HEMATOLOGY ORDERABLES Final Resu lt [facility] CLIA# [id number] [address] [place] [address] * (ABNORMAL) COMPREHENSIVE METABOLIC PANEL (10/14/2023 2:35 AM IS PROJECT MANAGER) SODIUM 135(L) 136 - 145 mmol/L 10/14/2023 8:26 AM [facility] POTASSIUM 4.0 3.4 - 5.1 mmol/L 10/14/2023 8:26 AM [facility] CHLORIDE 97(L) 98 - 107 mmol/L 10/14/2023 8:26 AM [facility] CO2 24 22 - 29 mmol/L 10/14/2023 8:26 AM [facility] CALCIUM 9.5 8.6 - 10.4 mg/dL 10/14/2023 8:26 AM [facility] BUN 36(H) 6 - 20 mg/dL 10/14/2023 8:26 AM [facility] CREATININE 1.18(H) 0.67 - 1.17 mg/dL 10/14/2023 8:26 AM [facility] [place] [facility] Comment:The GFR result is no t clinically significant on patients <18 or >70 years of age. GLUCOSE 84 74 - 99 mg/dL 10/14/2023 8:26 AM [facility] TOTAL PROTEIN 7.4 6.3 - 8.7 g/dL 10/14/2023 8:26 AM [facility] ALBUMIN 3.6 3.5 - 5.2 g/dL 10/14/2023 8:26 AM [facility] BILIRUBIN TOTAL 0.6 0.2 - 1.1 mg/dL 10/14/2023 8:26 AM [facility] ALKALINE PHOSPHATASE 99 40 - 150 U/L 10/14/2023 8:26 AM [facility] AST 22 0 - 41 U/L 10/14/2023 8:26 AM [facility] ALT 16 0 - 41 U/L 10/14/2023 8:26 AM [facility] GFR >60 mL/min/1.7 3 sq meter 10/14/2023 8:26 AM [facility] Comment:eGFR calculated with 2020 CKD-EPI equation. Vegetarian diet, extremely high or low muscle mass, and may affect results. Cystatin C with Glomerular Filtration Rate is a suitable alternative for these patients. 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
--- OUTSIDE RECORDS SUMMARY | 2024-11-06 10:18 | XMS_ITS | Encounter Summary ---
Author Organization [facility] Address [address] [facility] [place] [address] Care Team Providers Care Product Support Sales Representative Name Role Phone Demond Stark MD Primary Care Provider [phone] Encounter Details Date Type Department Care Team (Late Contact Info) Description 06/28/2023 Lab Requisition [facility] Lab [address] [place] [phone] Jaxon Anaya MD [address] [place] [address] Social History Tobacco Use Types Packs/Day Years [...] Visit [facility] - Neurology [address] [place] [phone] Alberto Jeffers MD [address] [facility] [place] [phone] documented as of this encounter Procedures Procedure Name Priority Date/Time Associated Diagnosis Comments DERMATOPATHOLOGY Routine 06/26/2023 12:0 0 AM CDT documented in this encounter Results * DERMATOPATHOLOGY (06/26/2023 12:00 AM CDT) Case Report Dermatopathology Report Case: [id number] Authorizing Provider: Jaxon Anaya MD Collected: 06/26/2023 12:00 AM Ordering Location: [facility] DermPath Lab Received: 06/28/2023 09:48 AM Pathologist: Mackenzie Ureña MD Specimen: Skin, right paraspinal mid back 4:58 PM CDT DERMATOPATHOLOGY LABORATORY Final Diagnosis Specimen A. SKIN, right paraspinal mid back: EPIDERMOID CYST WITH EVIDENCE OF RUPTURE (L72.0) 4:58 PM T DERMATOPATHOLOGY LABORATORY Clinical History R/O Cyst 4:58 PM CDT DERMATOPATHOLOGY LABORATORY Gross Description Specimen A: Received is one formalin filled container labeled with the patient's name and designated right paraspinal mid back.The specimen consists of an ellipse measuring [id number] mm and is oriented with the suture/notch [...] histiocytes, and multinucleated giant cells. 4:58 PM T DERMATOPATHOLOGY LABORATORY Disclaimer An external and internal positive and negative controls are appropriate for the histochemical, immunohistochemical and immunofluorescence stain(s) in this case (if any), except where stated explicitly. The performance characteristics of the stain(s) cited in this report were developed and its performance characteristic determined by the Dermatopathology Laboratory at [facility], directed by Dr. Georgina Young. These tests need not be, and therefore are not, approved by the [place] Food and Drug Administration. The tests are used for clinical purposes. Billing Codes Specimen Charges Stain Charges 19097 1 3 4:58 PM CDT DERMATOPATHOLOGY LABORATORY Embedded Images 3 4:58 PM CDT DERMATOPATHOLOGY LABORATORY Pathology/Cytolog y TISSUE SPECIMEN FROM SKIN / Unknown 06/26/2023 06/28/2023 9:48 AM CDT Jaxon Anaya MD LAB - PATHOLOGY/CYTO LOGY ORDERABLES DERMATOPATHOLOGY LABORATORY [facility] - Department of Dermatology [facility] Medicine [address] [place] [address] [phone] documented in this encounter Visit Diagnoses Not on filedocumented in this encounter Care Teams Product Support Sales Representative Relationship Specialty Start Date End Date Demond Stark MD [address] [place] [address] PCP - General 10/03/15 documented as of this encounter
--- OUTSIDE RECORDS SUMMARY | 2024-11-06 10:18 | XMS_ITS | Encounter Summary ---
Author Organization [facility] Address [address] [place] [address] Care Team Providers Care Net Maker Name Role Phone Unavailable Primary Care Provider Unavailabl e Encounter Details Date Type Department Care Team (Late st Contact Info) Description 11/04/2023 Lab Requisition [facility] Laboratory Services [id number] [place] [address] [place] [id number] [place] [address] Social History Tobacco Use Types Packs/Day Years Used Date Smoking Tobacco: Never Assessed Sex and Gender Information Value Date Recorded Sex Assigned at Not on file Legal Sex Male 9:18 AM [employer] Gender Identity Not on file Sexual Orientation Not on file documented as of this encounter Plan of Treatment Not on file documented as of this encounter Procedures Procedure Name Priority Date/Time Associated Diagnosis Comments CBC WITH DIFFERENTIAL Routine 11/04/2023 3:45 AM [employer] BASIC METABOLIC PANEL Routine 11/04/2023 3:45 AM [employer] documented in this encounter Results * (ABNORMAL) CBC WITH DIFFERENTIAL (11/04/2023 3:45 AM [employer]) WBC 12.2(H) 4.5 - 10.5 K/uL 11/04/2023 8:52 AM [employer] [facility] RBC 4.11(L) 4.50 - 5.40 M/uL 11/04/2023 8:52 AM [employer] [facility] HEMOGLOBIN 11.7(L) 13.6 - 16.5 g/dL 11/04/2023 8:52 AM [employer] [facility] HEMATOCRIT 37.9(L) 40.0 - 48.0 % 11/04/2023 8:52 AM [employer] [facility] MCV 92.2 82.0 - 99.0 fL 11/04/2023 8:52 AM [employer] [facility] MCH 28.5 27.8 - 34.5 pg 11/04/2023 8:52 AM [employer] [facility] MCHC 30.9(L) 32.5 - 35.5 g/dL 11/04/2023 8:52 AM [employer] [facility] RDW 17.0(H) 11.5 - 14.5 % 11/04/2023 8:52 AM [employer] [facility] PLATELETS 272 160 - 420 K/uL 11/04/2023 8:52 AM [employer] [facility] MPV 10.0 8.7 - 12.7 fL 11/04/2023 8:52 AM [employer] [facility] NEUTROPHILS 45 % 11/04/2023 8:52 AM [employer] [facility] LYMPHOCYTES 38 % 11/04/2023 8:52 AM [employer] [facility] MONOCYTES 7 % 11/04/2023 8:52 AM [employer] [facility] EOSINOPHILS 11 % 11/04/2023 8:52 AM [employer] [facility] BASOPHILS 1 % 11/04/2023 8:52 AM [employer] [facility] NEUTROPHIL ABSOLUTE 5.50 1.90 - 7.00 K/uL 11/04/2023 8:52 AM [employer] [facility] LYMPHOCYTE ABSOLUTE 4.60(H) 0.70 - 4.50 K/uL 11/04/2023 8:52 AM [employer] [facility] MONOCYTE ABSOLUTE 0.80 0.10 - 1.30 K/uL 11/04/2023 8:52 AM [employer] [facility] EOSINOPHIL ABSOLUTE 1.30(H) 0.00 - 0.70 K/uL 11/04/2023 8:52 AM [employer] [facility] BASOPHILS ABSOLUTE 0.10 0.00 - 0.20 K/uL 11/04/2023 8:52 AM [facility] [employer] [facility] Blood 11/04/2023 3:45 AM [employer] 11/04/2023 8:24 AM [employer] Erik Chairez MD HEMATOLOGY ORDERABLES Final Resu lt [facility] CLIA# [id number] [place] [address] * (ABNORMAL) BASIC METABOLIC PANEL (11/04/2023 3:45 AM [employer]) SODIUM 144 136 - 145 mmol/L 11/04/2023 9:49 AM [facility] POTASSIUM 5.3(H) 3.4 - 5.1 mmol/L 11/04/2023 9:49 AM [facility] CHLORIDE 103 98 - 107 mmol/L 11/04/2023 9:49 AM [facility] CO2 26 22 - 29 mmol/L 11/04/2023 9:49 AM [facility] CALCIUM 10.7(H) 8.6 - 10.4 mg/dL 11/04/2023 9:49 AM [facility] BUN 38(H) 6 - 20 mg/dL 11/04/2023 9:49 AM [facility] CREATININE 0.95 0.67 - 1.17 mg/dL 11/04/2023 9:49 AM [facility] Comment:The GFR result is no t clinically significant on patients <18 or >70 years of age. GLUCOSE 114(H) 74 - 99 mg/dL 11/04/2023 9:49 AM [facility] GFR >60 mL/min/1.7 3 sq meter 11/04/2023 9:49 AM [facility] Comment:eGFR calculated with 2020 CKD-EPI equation. Vegetarian diet, extremely high or low muscle mass, and may affect results. Cystatin C with Glomerular Filtration Rate is a suitable alternative for these patients. 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
[2024-11-06 10:26] LABS: Glucose Point of Care 143 mg/dl (65-105)
[2024-11-06 10:40] LABS: Basophils Percent Auto 0.3 % (0.2-1.2); Eosinophils Absolute Auto 0.1 K/mm3 (0-0.3); Eosinophils Percent Auto 1.1 % (0-4.4); Hematocrit 41.6 % (42.0-52.0); Hemoglobin 13.5 g/dL (14.0-18.0); Immature Granulocyte Absolute 0.04 K/mm3 (0.00-0.031); Immature Granulocyte Percent A 0.4 % (0-0.5); Lymphocytes Absolute Auto 0.85 K/mm3 (0.9-3.2); Lymphocytes Percent Auto 8.2 % (18.3-44.2); Mean Corpuscular HGB Conc 32.5 g/dl (32-36); Mean Corpuscular Volume 95.6 fl (80-100); Mean Platelet Volume 11.3 fl (7.4-10.4); Monocytes Absolute Auto 0.6 K/mm3 (0.1-0.6); Monocytes Percent Auto 5.8 % (2.6-8.5); Neutrophils Absolute Auto 8.7 K/mm3 (1.3-6.7); Neutrophils Percent Auto 84.2 % (45.5-73.1); Platelet Count Result 195 k/mm3 (150-375); Red Blood Count 4.35 M/mm3 (4.6-6.20); Red Cell Distribution Width 12.7 % (11.5-14.5); White Blood Count 10.3 K/mm3 (4.5-10.0)
[2024-11-06 10:50] LABS: INR 1.3; Prothrombin Time 16.5 Seconds (11.1-14.7)
[2024-11-06 10:51] LABS: Partial Thromboplastin Time 31.6 Seconds (22.3-36.8)
[2024-11-06 10:52] LABS: Alanine Aminotransferase 33 U/L (6-50); Albumin Level 4.4 g/dL (3.5-5.1); Alkaline Phosphatase 96 U/L (38-126); Anion Gap 13 mmol/L (4-12); Aspartate Amino Transferase 41 U/L (17-59); Bilirubin,Total 0.6 mg/dL (0.2-1.3); Blood Urea Nitrogen 29 mg/dL (9-20); Calcium 9.1 mg/dL (8.4-10.2); Carbon Dioxide 27 mmol/L (22-30); Chloride 102 mmol/L (98-107); Estimated CRCL calculation 58 ml/min; Estimated Glomerular Filt Rate > 60; Glucose 143 mg/dL (65-110); Potassium 3.7 mmol/L (3.4-5.0); Sodium 142 mmol/L (137-145)
[2024-11-06 11:04] LABS: Troponin I 0.237 ng/mL (0.000-0.034)
[2024-11-06 11:15] LABS: Influenza A QL RT-PCR Negative (Negative); Influenza B QL RT-PCR Negative (Negative); RSV RNA, RT-PCR Negative (Negative); SARS-CoV-2 RNA PCR Negative (Negative)
[2024-11-06 11:26] LABS: Add Urine Microscopic? YES; Appearance Urine Clear (Clear); Bacteria Urine None Seen /hpf; Bilirubin Urine Negative (Negative); Blood Urine Negative (Negative); Color Urine Yellow (Yellow); Glucose Urine UA Trace mg/dL (Negative); Ketones Urine Negative (Negative); Leukocyte Esterase Ur Negative LEU/UL (Negative); Need Manual Microscopic Reviewed; Nitrate Urine Negative (Negative); Non Pathogenic Casts 0-2; Protein Urine 2+ mg/dL (Negative); Specific Grav Ur 1.016 (1.001-1.035); Squamous Epithelial Cell Urine None Seen /hpf (Few); Urobilinogen Urine 0.2 mg/dL (<2.0); WBC Urine 0-5 /hpf (0-3)
[2024-11-06 12:08] LABS: NT Pro B Type Natriuretic Pept 2310 pg/mL (19.9-100)
--- NOTE | 2024-11-06 13:47 | ECG_ITS ---
Test Date: 2024-11-06 13:50:51 Measurements Intervals [place] Rate: 81 P: 0 MO: 0 QRS: 35 QRSD: 102 T: 4 QT: 386 QTc: 448 Interpretive Statements ATRIAL FIBRILLATION NONSPECIFIC T-WAVE ABNORMALITY- INFERIOR LEADS ABNORMAL ECG Compared to ECG 11/06/2024 09:58:19 NO SIGNIFICANT CHANGE Electronically Signed On 11-06-2024 15:33:57 CREATIVE GURU by Servando Cortez D.O.
[2024-11-06] MEDS: FUROSEMIDE INJ 40 MG/4 ML VIAL IV PUSH (14:14)
[2024-11-06] MEDS: AZITHROMYCIN 500 MG/NS 250 ML 500 MG/250 ML BAG 250 MG IVPB (14:30)
[2024-11-06 14:45] LABS: Lactic Acid Reflex 2.2 mmol/L (0.7-2.0)
[2024-11-06 15:06] LABS: Troponin I 0.207 ng/mL (0.000-0.034)
--- NOTE | 2024-11-06 16:30 | ECG_ITS ---
Test Date: 2024-11-06 16:45:02 Measurements Intervals [place] Rate: 71 P: 0 PA: 0 QRS: 19 QRSD: 97 T: 0 QT: 387 QTc: 422 Interpretive Statements ATRIAL FIBRILLATION NONSPECIFIC T-WAVE ABNORMALITY- INFERIOR LEADS ABNORMAL ECG Compared to ECG 11/06/2024 13:50:51 NO SIGNIFICANT CHANGE Electronically Signed On 11-06-2024 19:32:27 PLASTIC TUBING INSULATION SUPERVISOR by Servando Cortez D.O.
[2024-11-06 17:26] LABS: Reflex Lactic Acid Yes or No Add Lactic
[2024-11-06 17:57] LABS: Lactic Acid 2.4 mmol/L (0.7-2.0)
[2024-11-06 18:30] LABS: Troponin I 0.207 ng/mL (0.000-0.034)
--- OUTSIDE RECORDS SUMMARY | 2024-11-06 18:40 | XMS_ITS | Patient Health Summary ---
Author Organization [facility] Address [address] [place] [address] Care Team Providers Care [employer]gr[employer] Internship Name Role Phone Demond Stark MD Primary Care Provider [phone] Note from [facility],non-owned Affiliates and Associated Physician Practices is amultiple site organization consisting of ambulatory clinics and hospital sitesin [place], [place], [place] and [place]. This disclosure is being madepursuant to the Care Everywhere program and may not contain all information available regarding this patient. Last updated 18.[facility] Allergies * Diphenhydramine(Other) * Benazepril(Unknown) * Halobetasol(Rash) [...] Comments Blood Pressure 150/69 10/09/2024 10:39 AM FORMING DEPARTMENT END FINDER Pulse 67 10/09/2024 10:39 AM FORMING DEPARTMENT END FINDER Temperature 36.1 C (97 F) 05/24/2016 9:16 AM CDT Respiratory Rate 14 10/10/2015 9:00 PM FORMING DEPARTMENT END FINDER Oxygen Saturation 97% 08/28/2024 10:07 AM FORMING DEPARTMENT END FINDER Inhaled Oxygen Concentration - - Weight 100.2 kg (221 lb) 10/09/2024 10:39 AM FORMING DEPARTMENT END FINDER Height 182.9 cm (6') 11/21/2017 9:32 AM FORMING DEPARTMENT END FINDER Body Mass Index 29.97 11/21/2017 9:32 AM FORMING DEPARTMENT END FINDER Procedures * MRI THORACIC SPINE WO CONTRAST(Performed [...] Thoracic Spine Wo Contrast (10/25/2024 6:20 PM FORMING DEPARTMENT END FINDER) Anatomical Region Laterality Modality Chest Magnetic Resonan ce 11/01/2024 10:3 8 AM FORMING DEPARTMENT END FINDER Impressions 11/01/2024 11:01 AM FORMING DEPARTMENT END FINDER IMPRESSION: 1. No acute findings in the thoracic spine. No cord abnormality or cord compression. 2. Mild multilevel degenerative disc disease and mild to moderate multilevel facet as a synovitis in the lumbar spine. No central canal stenosis. > Interpreting Provider: Mikaela Cunningham MD on 11/01/2024 11:01 AM Narrative 11/01/2024 11:01 AM FORMING DEPARTMENT END FINDER PROCEDURE: MRI THORACIC SPINE WO CONTRAST, DATE/TIME OF EXAM: 10/25/2024 6:20 PM, LOCATION [facility] INDICATION: R26.89: Imbalance M54.9: Back [...] DATE/TIME OF EXAM: 10/25/2024 6:20 PM, LOCATION [facility] INDICATION: R26.89: Imbalance M54.9: Back [...] Lumbar Spine Wo Contrast (10/25/2024 6:20 PM FORMING DEPARTMENT END FINDER) Anatomical Region Laterality Modality Spine Magnetic Resonan ce 11/01/2024 11:0 1 AM FORMING DEPARTMENT END FINDER Impressions 11/01/2024 11:09 AM FORMING DEPARTMENT END FINDER IMPRESSION: 1. 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 No significant central canal or neuroforamina stenosis. > Interpreting Provider: Mikaela Cunningham MD on 11/01/2024 11:09 AM Narrative 11/01/2024 11:09 AM FORMING DEPARTMENT END FINDER PROCEDURE: MRI LUMBAR SPINE WO CONTRAST, DATE/TIME OF EXAM: 10/25/2024 6:20 PM, LOCATION [facility] INDICATION: R26.89: Imbalance M54.9: Back [...] CONTRAST, DATE/TIME OF EXAM: 56:20 PM, LOCATION [facility] INDICATION: R26.89: Imbalance M54.9: Back [...] Cervical Spine Wo Contrast (10/25/2024 6:20 PM FORMING DEPARTMENT END FINDER) Anatomical Region Laterality Modality Pelvis Magnetic Resonan ce 11/01/2024 10:3 1 AM FORMING DEPARTMENT END FINDER Impressions 11/01/2024 10:38 AM FORMING DEPARTMENT END FINDER IMPRESSION: 1. 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 > Interpreting Provider: Mikaela Cunningham MD on 11/01/2024 10:38 AM Narrative 11/01/2024 10:38 AM FORMING DEPARTMENT END FINDER PROCEDURE: MRI CERVICAL SPINE WO CONTRAST, DATE/TIME OF EXAM: 10/25/2024 6:20 PM, LOCATION [facility] INDICATION: R26.89: Imbalance M54.9: Back [...] DATE/TIME OF EXAM: 10/25/2024 6:20 PM, LOCATION [facility] INDICATION: R26.89: Imbalance M54.9: Back [...] MRI Brain Wwo Contrast (10/17/2024 6:43 PM FORMING DEPARTMENT END FINDER) Anatomical Region Laterality Modality Head Magnetic Resonan ce 10/22/2024 4:16 PM FORMING DEPARTMENT END FINDER Impressions 10/22/2024 4:28 PM FORMING DEPARTMENT END FINDER IMPRESSION: 1. No acute intracranial process. Specifically, [...] 10/22/2024 4:28 PM Narrative 10/22/2024 4:28 PM FORMING DEPARTMENT END FINDER PROCEDURE: MRI BRAIN WWO CONTRAST, DATE/TIME OF EXAM: 10/17/2024 6:45 PM, LOCATION [facility] INDICATION: R26.89: Imbalance M54.9: Back [...] CONTRAST, DATE/TIME OF EXAM: 10/17/2024 6:45PM, LOCATION [facility] INDICATION: R26.89: Imbalance M54.9: Back [...] detection. > Dictated by Morro Molina MD (Adapted Physical Education Teacher) Jena Verduzco MD have personally reviewed and interpreted this examination/study. > Interpreting Provider: Jena Valderrama MD on 06/22/2024 1:39 PM Narrative 06/22/2024 1:39 PM CDT PROCEDURE: CT ANGIO BRAIN AND NECK, DATE/TIME OF EXAM: 06/22/2024 7:48 AM, LOCATION [facility] INDICATION: R26.89: Imbalance ADDITIONAL CLINICAL INFORMATION: Ordering Provider Reason For Exam: Falls, unsteady gait. MRI [facility] showing small vessel disease Technologist Note: Does [...] NECK, DATE/TIME OF EXAM: 06/22/2024 7:48AM, LOCATION [facility] INDICATION: R26.89: Imbalance ADDITIONAL CLINICAL INFORMATION: [...] detection. > Dictated by Morro Molina MD (Adapted Physical Education Teacher) IJena MD have personally reviewed and interpretedthis examination/study. > Interpreting Provider: Jena Valderrama MD on 06/22/2024 1:39 PM [address] Lacy MD CT ORDERABLES * HEAVY METALS BLOOD QNT 4 PNL (,CD,HG,PB) (06/05/2024 2:46 PM CDT) [facility] Lead <2.0 <=4.9 ug/dL 06/07/2024 7:00 AM CDT [facility] ([facility]) Comment: INTERPRETIVE INFORMATION: Lead, Blood (Venous) Analysis [...] developed and its performance characteristics determined by [employer]. It has not been cleared or approved [...] <10.0 <=12.0 ug/L 06/07/2024 7:00 AM CDT [employer] ([facility]) Comment: INTERPRETIVE INFORMATION: Arsenic, Blood Elevated results [...] developed and its performance characteristics determined by [employer]. It has not been cleared or approved by the [place] Food and Drug Administration. This test was performed in a CLIA certified laboratory and is intended for clinical purposes. Cadmium <1.0 <=5.0 ug/L 06/07/2024 7:00 AM CDT [facility] [employer] ([facility]) Comment: INTERPRETATION INFORMATION: Cadmium, Blood Elevated results [...] developed and its performance characteristics determined by [employer]. It has not been cleared or approved by the [place] Food and Drug Administration. This test was performed in a CLIA certified laboratory and is intended for clinical purposes. Mercury <2.5 <=10.0 ug/L 06/07/2024 7:00 AM CDT [facility] [employer] ([facility]) Comment: INTERPRETIVE INFORMATION: Mercury, Blood Elevated results [...] developed and its performance characteristics determined by [employer]. It has not been cleared or approved by the US Food and Drug Administration. This test was performed in a CLIA certified laboratory and is intended for clinical purposes. Performed By: [address] [address] Cosmetic Sales Advisor: Trent Franco MD, PhD CLIA Number: [id number] Blood BLOOD SPECIMEN / Unknown Lab Venipuncture / Unknown 06/05/2024 2:46 PM CDT 06/05/2024 4:08 PM CDT Yasir Lacy MD LAB - CHEMISTRY [facility]AL [place] Performing Organization Address City/[facility]/ZIP Co de Phone Number [address] [id number] * TSH REFLEX FREE T4 (06/05/2024 2:46 PM CDT) TSH 3.358 0.350 - 4.940 uIU/mL 06/05/2024 4:11 PM CDT [facility] Blood BLOOD SPECIMEN / Unknown Lab Venipuncture / Unknown 06/05/2024 2:46 PM CDT 06/05/2024 3:07 PM CDT Yasir Lacy MD LAB - CHEMISTRY [place] [address] [address], [facility] [phone] * (ABNORMAL) VITAMIN B1 (06/05/2024 2:46 PM CDT) Vitamin B1 Whole Blood 197(H) 70 - 180 nmol/L 06/08/2024 7:33 AM CDT [facility] ([facility]) Comment: INTERPRETIVE INFORMATION: Vitamin B1, Whole Blood This assay measures the concentration of thiamine diphosphate (TDP), the primary active form of vitamin B1. Approximately 90 percent of vitamin B1 present in whole blood is TDP. Thiamine and thiamine monophosphate, which comprise the remaining 10 percent, are not measured. This test was developed and its performance characteristics determined by [employer]. It has not been cleared or approved by the US Food and Drug Administration. This test was performed in a CLIA certified laboratory and is intended for clinical purposes. Performed By: [facility] [employer] [address] [place] [address] Cosmetic Sales Advisor: Trent Franco MD, PhD CLIA Number: [id number] Blood BLOOD SPECIMEN / Unknown Lab Venipuncture / Unknown 06/05/2024 2:46 PM CDT 06/05/2024 4:05 PM CDT Yasir Lacy MD LAB - CHEMISTRY [facility]AL [place] Performing Organization Address [facility] de Phone Number [facility] ([facility]) [address] [place] [address] * COPPER BLOOD (06/05/2024 2:46 PM CDT) [facility] Copper 119.7 70.0 - 140.0 ug/dL 06/06/2024 10:38 PM CDT [facility] ([facility]) Comment: INTERPRETIVE INFORMATION: Copper, Serum or Plasma [...] developed and its performance characteristics determined by [employer]. It has not been cleared or approved by the US Food and Drug Administration. This test was performed in a CLIA certified laboratory and is intended for clinical purposes. Performed By: [employer] [address] [place] [address] Cosmetic Sales Advisor: Trent Franco MD, PhD CLIA Number: [id number] Blood BLOOD SPECIMEN / Unknown Lab Venipuncture / Unknown 06/05/2024 2:46 PM CDT 06/05/2024 4:08 PM CDT Yasir Lacy MD LAB - CHEMISTRY [place]AL [place] [facility] ([facility]) [address] [place] [address], [facility] * (ABNORMAL) COMPREHENSIVE METABOLIC PANEL (06/05/2024 2:46 PM T) Only the most recent of3 resultswithin the time period is included. BUN 27(H) 7 - 26 mg/dL 06/05/2024 3:36 PM [facility] Creatinine 1.25(H) 0.71 - 1.16 mg/dL 06/05/2024 3:36 PM [facility] Sodium 143 136 - 145 mmol/L 06/05/2024 3:36 PM [facility] Potassium 3.9 3.5 - 4.5 mmol/L 06/05/2024 3:36 PM [facility] Chloride 110(H) 98 - 107 mmol/L 06/05/2024 3:36 PM [facility] CO2 28 22 - 29 mmol/L 06/05/2024 3:36 PM [facility] Glucose 95 70 - 115 mg/dL 06/05/2024 3:36 PM [facility] Calcium 9.5 8.4 - 10.2 mg/dL 06/05/2024 3:36 PM [facility] Protein Total 7.5 6.0 - 8.3 g/dL 06/05/2024 3:36 PM [facility] Albumin 4.1 3.4 - 5.0 g/dL 06/05/2024 3:36 PM [facility] Bilirubin Total 0.7 0.2 - 1.2 mg/dL 06/05/2024 3:36 PM [facility] Alkaline Phosphatase 91 40 - 150 U/L 06/05/2024 3:36 PM [facility] ALT 13 5 - 55 U/L 06/05/2024 3:36 PM [facility] AST 19 5 - 34 U/L 06/05/2024 3:36 PM [facility] Anion Gap 5(L) 6 - 16 06/05/2024 3:36 PM [facility] BUN/Creatinine Ratio 22 7 - 23 06/05/2024 3:36 PM [facility] Osmolality Calculated 301(H) 275 - 295 mOsm/kg 06/05/2024 3:36 PM CDT [facility] Albumin/Globulin Ratio 1.2 1.1 - 2.3 06/05/2024 3:36 PM CDT [facility] eGFR by CKD-EPI 57(L) >=90 mL/min/1.7 3 m2 06/05/2024 3:36 PM CDT [facility] Blood BLOOD SPECIMEN / Unknown Lab Venipuncture / Unknown 06/05/2024 2:46 PM CDT 06/05/2024 3:07 PM CDT Yasir Lacy MD LAB - CHEMISTRY ORDRobert [place] [facility] [address] [place] [address], [place] [phone] * CK BLOOD (06/05/2024 2:46 PM CDT) CK Total 54 30 - 200 U/L 06/05/2024 3:36 PM CDT [facility] Blood BLOOD SPECIMEN / Unknown Lab Venipuncture / Unknown 06/05/2024 2:46 PM CDT 06/05/2024 3:07 PM CDT Yasir Lacy MD LAB - CHEMISTRY [place] [place] [address] [address], [place] [phone] * (ABNORMAL) VITAMIN B12 (06/05/2024 2:46 PM CDT) Vitamin B12 >2,000(H) 213 - 816 pg/mL 06/05/2024 4:10 PM CDT [facility] Blood BLOOD SPECIMEN / Unknown Lab Venipuncture / Unknown 06/05/2024 2:46 PM CDT 06/05/2024 3:07 PM CDT Yasir Lacy MD LAB - CHEMISTRY [facility] [place] Performing Organization Address City/[facility]/ZIP Co de Phone Number [place] [id number] [place] [address], [facility] [phone] * PROTEIN ELECTROPHORESIS BLOOD (06/05/2024 2:46 PM CDT) Interpretation Serum PE Normal Pattern Normal Pattern 06/09/2024 1:48 PM CDT [facility] Comment: Serum capillary electrophoresis shows characteristic [...] - 8.3 g/dL 06/09/2024 1:48 PM CDT [facility] Albumin 4.1 3.3 - 5.6 g/dL 06/09/2024 1:48 PM CDT [facility] Alpha-1 Globulins 0.3 0.2 - 0.4 g/dL 06/09/2024 1:48 PM CDT [facility] Alpha-2 Globulins 0.7 0.5 - 1.0 g/dL 06/09/2024 1:48 PM CDT [facility] Beta Globulins 0.8 0.6 - 1.1 g/dL 06/09/2024 1:48 PM CDT [facility] Gamma Globulins 1.2 0.6 - 1.6 g/dL 06/09/2024 1:48 PM CDT [facility] Blood BLOOD SPECIMEN / Unknown Lab Venipuncture / Unknown 06/05/2024 2:46 PM CDT 06/05/2024 3:18 PM CDT Yasir Lacy MD LAB - CHEMISTRY [facility]AL [place] [facility] [address] [place] [id number] [phone] * DERMATOPATHOLOGY (06/26/2023 12:00 AM CDT) Only the most recent of5 resultswithin the time period is included. Case Report Dermatopathology Report Case: [id number] Authorizing Provider: Jaxon Anaya MD Collected: 06/26/2023 12:00 AM Ordering Location: [facility] DermPath Lab Received: 06/28/2023 09:48 AM [...] back.The specimen consists of an ellipse measuring [id number] mm and is oriented with the suture/notch [...] characteristic determined by the Dermatopathology Laboratory at [facility], directed by Dr. Georgina Young. These tests need not be, and therefore are not, approved by the [place] Food and Drug Administration. The tests are used for clinical purposes. Billing Codes Specimen Charges Stain Charges 90962 1 3 4:58 PM CDT DERMATOPATHOLOGY LABORATORY Embedded Images 3 4:58 PM CDT DERMATOPATHOLOGY LABORATORY Pathology/Cytolog y TISSUE SPECIMEN FROM SKIN / Unknown 06/26/2023 06/28/2023 9:48 AM CDT Jaxon Anaya MD LAB - PATHOLOGY/CYTO LOGY ORDERABLES DERMATOPATHOLOGY LABORATORY [facility] Department of Dermatology [address] [phone] * CT HEAD WO CONTRAST (11/22/2016 8:20 AM FORMING DEPARTMENT END FINDER) Only the most recent of5 resultswithin the time period is included. Anatomical Region Laterality Modality Head Other Impressions 11/22/2016 8:51 AM FORMING DEPARTMENT END FINDER IMPRESSION: 1. 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 This report was approved by Moises Barrera M.D. on 11/22/2016 8:46 AM . I, Dr. ROSALIA MOURA M.D. have personally reviewed and interpreted this examination/study. This report was electronically signed by ROSALIA MOURA M.D. on 11/22/2016 8:51 AM . Narrative 11/22/2016 8:51 AM FORMING DEPARTMENT END FINDER EXAMINATION: Computed tomography (CT) of the head [...] CT BRAIN STROKE PROTOCOL (10/10/2015 7:52 PM FORMING DEPARTMENT END FINDER) Anatomical Region Laterality Modality Head Other Impressions 10/11/2015 6:20 AM FORMING DEPARTMENT END FINDER IMPRESSION: 1. Unchanged mixed attenuation cerebral convexity subdural hematomas without internal brain herniation. Preliminary fundus relayed to Dr. Cueto at 9:03 PM on 10 October 2015 by Nick Steele. This report was electronically signed by ROSALIA MOURA M.D. on 10/11/2015 6:20 AM . Narrative 10/11/2015 6:20 AM FORMING DEPARTMENT END FINDER EXAMINATION: Computed tomography (CT) of the head [...] ORDERABLES * PTT [facility] (10/10/2015 7:24 PM FORMING DEPARTMENT END FINDER) Only the most recent of2 resultswithin the time period is included. APTT 29.9 23.0 - 38.4 Seconds [facility] Comment:Suggested therapeuti c range for full dose I.V. heparin therapy for venous thromboembolism is 66.0-91.0 seconds. Blood specimen (specimen) BLOOD SPECIMEN / Unknown 10/10/2015 7:24 PM FORMING DEPARTMENT END FINDER 10/10/2015 7:33 PM FORMING DEPARTMENT END FINDER Narrative [facility] - 10/10/2015 7:48 PM FORMING DEPARTMENT END FINDER Is patient on Heparin, Argatroban or Dabigatran?->N Foreign Chisholm MD LAB - COAGULATION OR DERABLES Performing Organization Address [facility] de Phone Number [address] [phone] * PT-INR [facility] (10/10/2015 7:24 PM FORMING DEPARTMENT END FINDER) Only the most recent of2 resultswithin the time period is included. PT 13.0 12.1 - 14.8 Seconds [facility] INR 1.0 See Comment [facility] Comment: Suggested therapeutic range for low-intensity coumadin therapy for venous thromboembolism prophylaxis is an INR of 2.0-3.0. For high risk patients (Mitral Valve Prosthesis, Atrial Fibrillation, history of TIA/stroke), suggested prophylactic therapeutic range is an INR of 2.5-3.5. Blood specimen (specimen) BLOOD SPECIMEN / Unknown 10/10/2015 7:24 PM FORMING DEPARTMENT END FINDER 10/10/2015 7:33 PM FORMING DEPARTMENT END FINDER Narrative [facility] - 10/10/2015 7:47 PM FORMING DEPARTMENT END FINDER Is patient on Heparin, Argatroban or Dabigatran?->N Foreign Chisholm MD LAB - COAGULATION OR DERABLES Performing Organization Address [facility] Co de Phone Number [address] [phone] * TROPONIN I (10/10/2015 7:24 PM FORMING DEPARTMENT END FINDER) Troponin I <0.010 <0.032 ng/mL [facility] Blood specimen (specimen) BLOOD SPECIMEN / Unknown 10/10/2015 7:24 PM FORMING DEPARTMENT END FINDER 10/10/2015 10:21 PM FORMING DEPARTMENT END FINDER Angelia Armendariz MD LAB - CHEMISTRY ORDRobert [place] Performing Organization Address [facility] Co de Phone Number [facility] [address] [phone] * CBC W AUTO DIFFERENTIAL (10/10/2015 7:24 PM FORMING DEPARTMENT END FINDER) Only the most recent of4 resultswithin the time period is included. Blood specimen (specimen) BLOOD SPECIMEN / Unknown 10/10/2015 7:24 PM FORMING DEPARTMENT END FINDER Narrative [facility] - 10/10/2015 7:59 PM FORMING DEPARTMENT END FINDER The following orders were created for panel order CBC w Differential. Procedure Abnormality Status --------- ------ CBC WITH DIFFERENTIAL[[id number]] Normal Final result Please view results for these tests on the individual orders. Foreign Chisholm MD LAB - HEMATOLOGY ORD MATT Performing Organization Address [facility] Co de Phone Number [facility] [address] * URINALYSIS W/MICROSCOPIC NO CULTURE (10/10/2015 7:09 PM FORMING DEPARTMENT END FINDER) Color UA Yellow Straw, Yellow, Colorless, Light Yellow [facility] Clarity UA Clear Clear [facility] Specific [place] UA 1.016 1.001 - 1.030 [facility] pH UA 6.0 5.0 - 8.0 [facility] Protein UA Negative <=20 mg/dL [facility] Glucose UA Negative Negative mg/dL [facility] Ketone UA Negative Negative mg/dL [facility] Bilirubin UA Negative Negative mg/dL [facility] Blood UA Negative Negative [facility] Nitrite UA Negative Negative [facility] Leukocyte Esterase Negative Negative [facility] Urobilinogen UA <2.0 <2.0 mg/dL [facility] RBC UA 1 0 - 8 /HPF [facility] Squamous Epithelial Cells UA <1 0 - 1 /HPF [facility] Urine specimen (specimen) 10/10/2015 7:09 PM FORMING DEPARTMENT END FINDER 10/10/2015 7:15 PM FORMING DEPARTMENT END FINDER Angelia Armendariz MD LAB - URINALYSIS ORD ERABLES Performing Organization Address City/[facility] Co de Phone Number [facility] [address] [place] [address] * DRUG ABUSE PANEL 10-20+ETHANOL URINE NO CONFIRM (10/10/2015 7:09 PM FORMING DEPARTMENT END FINDER) Amphetamines Screen Urine Negative Negative: < 1000 ng/mL [facility] Barbiturates Screen Urine Negative Negative: < 200 ng/mL [facility] Benzodiazepine Screen Urine Negative Negative: < 200 ng/mL [facility] Opiates Urine Negative Negative: < 300 ng/mL [facility] Cocaine Metabolites Urine Negative Negative: < 300 ng/mL [facility] Phencyclidine Screen Urine Negative Negative: < 25 ng/ml [facility] Cannabinoids Screen Urine Negative Negative: <50 ng/mL [facility] Methadone Screen Urine Negative Negative: < 300 ng/mL [facility] Urine specimen (specimen) 10/10/2015 7:09 PM FORMING DEPARTMENT END FINDER 10/10/2015 7:15 PM FORMING DEPARTMENT END FINDER Narrative [facility] - 10/10/2015 7:57 PM FORMING DEPARTMENT END FINDER The Urine Toxicology Screening Panel does not screen for Propoxyphene, Meprobamate, Carisoprodol, Trazodone, [id number] medications and/or volatiles (Acetone, Isopropanol, Methanol or Ethylene Glycol). Ethanol, Salicylate, Acetaminophen, Tricyclic Antidepressants and several therapeutic drugs may be individually assayed in serum or plasma specimen. Toxicology testing by the [facility] is an aid to medical diagnosis and treatment of patients. No documented chain of custody was maintained. Results are intended to be used for clinical purposes only. Angelia Armendariz MD LAB - URINE CHEMISTR Y ORDERABLES [facility] [address] [phone] * XR CHEST 2VW (10/10/2015 6:48 PM FORMING DEPARTMENT END FINDER) Anatomical Region Laterality Modality Chest Other Impressions 10/11/2015 12:54 PM FORMING DEPARTMENT END FINDER IMPRESSION: No acute pulmonary process. Dictated by Foreign Villar MD (interventional radiology technologist). This report was approved by Foreign Villar on 10/11/2015 8:[address] CORBIN Verduzco M.D. have personally reviewed and interpreted this examination/study. This report was electronically signed by CORBIN RUIZ M.D. on 10/11/2015 12:54 PM . Narrative 10/11/2015 12:54 PM FORMING DEPARTMENT END FINDER EXAMINATION: XR CHEST PA AND LATERAL HISTORY: [...] pulmonary process. Dictated by Foreign Villar MD (interventional radiology technologist). This report was approved by Foreign Villar on 10/11/2015 8:[address] CORBIN Verduzco M.D. have personally reviewed and interpreted thisexamination/study. This report was electronically signed by CORBIN RUIZ M.D. on 10/11/201512:54 PM . Angelia Armendariz MD DIAGNOSTIC IMAGING O RDERABLES * EKG 12-LEAD (10/10/2015 12:00 AM FORMING DEPARTMENT END FINDER) Only the most recent of2 resultswithin the time period is included. EKG [facility] Comment: Exam Date/Time: Oct 10 2015 [...] found Confirmed by Ru Chang, Sheela ([id number]), assistant editor ARE CASTILLO ([id number]) on 10/18/2015 1:12:40 PM Referred By: REFERRING NO Confirmed By:Sheela Chang M.D. 10/10/2015 Angelia Armendariz MD ECG ORDERABLES [facility] * TYPE + SCREEN PANEL (10/03/2015 11:25 PM FORMING DEPARTMENT END FINDER) Pathologist [facility] Typem A NEG [facility] [facility] Antibody Screen NEG [facility] BLOOD BANK LAB Blood specimen (specimen) BLOOD SPECIMEN / Unknown 10/03/2015 11:25 PM FORMING DEPARTMENT END FINDER 10/03/2015 11:41 PM FORMING DEPARTMENT END FINDER Bianca Capps MD LAB - BLOOD BANK O RDERABLES [facility] BLOOD BANK LAB [address] * PATHOLOGY REVIEW TEG (10/03/2015 11:05 PM FORMING DEPARTMENT END FINDER) Pathologist [facility] Pathology Review TEG Other [facility] Comment: PATHOLOGIST INTERPRETATION: DATE: 10-04-2015 [...] platelet count by CBC. Adilia Woods DO Director Field Services Transfusion Service Blood specimen (specimen) BLOOD SPECIMEN / Unknown 10/03/2015 11:05 PM FORMING DEPARTMENT END FINDER 10/04/2015 1:30 AM FORMING DEPARTMENT END FINDER Bianca Capps MD LAB - PATHOLOGY/CY [employer] ORDERABLES [address] [phone] * (ABNORMAL) TEG PLATELET MAPPING (10/03/2015 11:05 PM FORMING DEPARTMENT END FINDER) G-Clot Strength 11.6(H) 4.5 - 11.0 d/sc [facility] BLOOD BANK LAB Pathology Review TEG Other [facility] BLOOD [facility] LAB Interpretation TEG See Comment [facility] BLOOD [facility] LAB React-Time 3.9(L) 5.0 - 10.0 MIN [facility] BLOOD BANK LAB K-Time 1.1 1.0 - 3.0 MIN [facility] BLOOD BANK LAB Angle A-BB 74.2(H) 53.0 - 72.0 Degrees [facility] BLOOD BANK LAB MA (CK) BB 69.8 50.0 - 70.0 mm [facility] BLOOD BANK LAB LY30 0.1 0.0 - 8.0 % [facility] BLOO D BANK LAB CI-Coagulation Index 3.4(H) -3.0 - 3.0 [facility] BLOOD BANK LAB MA-ADP 38.7 Reference Range: None mm [facility] BLOOD BANK LAB MA AA-BB 47.5 Reference Range: None mm [facility] BLOOD BANK LAB % ADP Inhibition 52.1 Reference Range:None % [facility] BLOOD BANK LAB % AA Inhibition 37.4 Reference Range: None % [facility] BLOOD BANK LAB Blood specimen (specimen) BLOOD SPECIMEN / Unknown 10/03/2015 11:05 PM FORMING DEPARTMENT END FINDER 10/03/2015 11:38 PM FORMING DEPARTMENT END FINDER [facility] BLOOD BANK LAB - 10/04/2015 1:30 AM FORMING DEPARTMENT END FINDER SEE BELOW TEG Kaolin Sample Type Interpretation [...] BLOOD BANK O RDERABLES Performing Organization Address City/State/[facility] Co de Phone Number [facility] BLOOD BANK LAB [address] [place] [address], [facility] Care Teams Agronomy Internship Relationship Specialty Start Date End Date Demond Stark MD [address] [place] [address] PCP - General 10/03/15
--- OUTSIDE RECORDS SUMMARY | 2024-11-06 18:40 | XMS_ITS | Encounter Summary ---
Author Organization [facility] Address [address] [place] [address] Care Team Providers Care Proration Clerk Name Role Phone Unavailable Primary Care Provider Unavailabl e Encounter Details Date Type Department Care Team (Late st Contact Info) Description 10/20/2023 Lab Requisition [facility] Laboratory Services [address] [place] [address] [place] [address] [place] [address] Social History Tobacco Use Types Packs/Day Years Used Date Smoking Tobacco: Never Assessed Sex and Gender Information Value Date Recorded Sex Assigned at Not on file Legal Sex Male 9:18 AM SOCIAL WORKER PALLIATIVE CARE Gender Identity Not on file Sexual Orientation Not on file documented as of this encounter Plan of Treatment Not on file documented as of this encounter Procedures Procedure Name Priority Date/Time Associated Diagnosis Comments CBC WITH DIFFERENTIAL Routine 10/20/2023 2:20 AM SOCIAL WORKER PALLIATIVE CARE BASIC METABOLIC PANEL Routine 10/20/2023 2:20 AM SOCIAL WORKER PALLIATIVE CARE documented in this encounter Results * (ABNORMAL) CBC WITH DIFFERENTIAL (10/20/2023 2:20 AM SOCIAL WORKER PALLIATIVE CARE) WBC 8.3 4.5 - 10.5 K/uL 10/20/2023 5:25 AM SOCIAL WORKER PALLIATIVE CARE [facility] LABORATORY SERVICES - [facility] RBC 3.82(L) 4.50 - 5.40 M/uL 10/20/2023 5:25 AM SOCIAL WORKER PALLIATIVE CARE [facility] LABORATORY [facility] - [facility] HEMOGLOBIN 11.2(L) 13.6 - 16.5 g/dL 10/20/2023 5:25 AM SOCIAL WORKER PALLIATIVE CARE [facility] LABORATORY SERVICES - [facility] HEMATOCRIT 35.0(L) 40.0 - 48.0 % 10/20/2023 5:25 AM SOCIAL WORKER PALLIATIVE CARE [facility] LABORATORY SERVICES [facility] MCV 91.6 82.0 - 99.0 fL 10/20/2023 5:25 AM SOCIAL WORKER PALLIATIVE CARE [facility] LABORATORY SERVICES - [facility] MCH 29.4 27.8 - 34.5 pg 10/20/2023 5:25 AM SOCIAL WORKER PALLIATIVE CARE [facility] LABORATORY SERVICES [facility] MCHC 32.1(L) 32.5 - 35.5 g/dL 10/20/2023 5:25 AM SOCIAL WORKER PALLIATIVE CARE [facility] LABORATORY SERVICES - [facility] RDW 17.4(H) 11.5 - 14.5 % 10/20/2023 5:25 AM SOCIAL WORKER PALLIATIVE CARE [facility] - [facility] PLATELETS 255 160 - 420 K/uL 10/20/2023 5:25 AM SOCIAL WORKER PALLIATIVE CARE [facility] MPV 9.4 8.7 - 12.7 fL 10/20/2023 5:25 AM SOCIAL WORKER PALLIATIVE CARE [facility] - [facility] NEUTROPHILS 60 % 10/20/2023 5:25 AM SOCIAL WORKER PALLIATIVE CARE [facility] LYMPHOCYTES 23 % 10/20/2023 5:25 AM SOCIAL WORKER PALLIATIVE CARE [employer] LABORATORY SERVICES [facility] MONOCYTES 6 % 10/20/2023 5:25 AM SOCIAL WORKER PALLIATIVE CARE [facility] EOSINOPHILS 11 % 10/20/2023 5:25 AM SOCIAL WORKER PALLIATIVE CARE [facility] BASOPHILS 1 % 10/20/2023 5:25 AM SOCIAL WORKER PALLIATIVE CARE [facility] NEUTROPHIL ABSOLUTE 4.90 1.90 - 7.00 K/uL 10/20/2023 5:25 AM SOCIAL WORKER PALLIATIVE CARE [facility] LYMPHOCYTE ABSOLUTE 1.90 0.70 - 4.50 K/uL 10/20/2023 5:25 AM SOCIAL WORKER PALLIATIVE CARE [employer] LABORATORY SERVICES [facility] MONOCYTE ABSOLUTE 0.50 0.10 - 1.30 K/uL 10/20/2023 5:25 AM SOCIAL WORKER PALLIATIVE CARE [facility] EOSINOPHIL ABSOLUTE 0.90(H) 0.00 - 0.70 K/uL 10/20/2023 5:25 AM SOCIAL WORKER PALLIATIVE CARE [facility] BASOPHILS ABSOLUTE 0.00 0.00 - 0.20 K/uL 10/20/2023 5:25 AM [facility] Blood 10/20/2023 2:20 AM SOCIAL WORKER PALLIATIVE CARE 10/20/2023 5:15 AM SOCIAL WORKER PALLIATIVE CARE Erik Chairez MD HEMATOLOGY ORDERABLES Final Resu lt [facility] CLIA# [id number] [place] [address] * (ABNORMAL) BASIC METABOLIC PANEL (10/20/2023 2:20 AM SOCIAL WORKER PALLIATIVE CARE) SODIUM 140 136 - 145 mmol/L 10/20/2023 5:53 AM [facility] POTASSIUM 3.8 3.4 - 5.1 mmol/L 10/20/2023 5:53 AM [facility] CHLORIDE 101 98 - 107 mmol/L 10/20/2023 5:53 AM [facility] CO2 26 22 - 29 mmol/L 10/20/2023 5:53 AM [facility] CALCIUM 9.6 8.6 - 10.4 mg/dL 10/20/2023 5:53 AM [facility] BUN 30(H) 6 - 20 mg/dL 10/20/2023 5:53 AM [facility] CREATININE 0.89 0.67 - 1.17 mg/dL 10/20/2023 5:53 AM [facility] Comment:The GFR result is no t clinically significant on patients <18 or >70 years of age. GLUCOSE 110(H) 74 - 99 mg/dL 10/20/2023 5:53 AM [facility] GFR >60 mL/min/1.7 3 sq meter 10/20/2023 5:53 AM [facility] Comment:eGFR calculated with 2020 CKD-EPI equation. Vegetarian diet, extremely high or low muscle mass, and may affect results. Cystatin C with Glomerular Filtration Rate is a suitable alternative for these patients. 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
--- OUTSIDE RECORDS SUMMARY | 2024-11-06 18:40 | XMS_ITS | Encounter Summary ---
Author Organization [facility] Address [address] [place] [address] Care Team Providers Care Manager Product Design Name Role Phone Unavailable Primary Care Provider Unavailabl e Encounter Details Date Type Department Care Team (Late st Contact Info) Description 10/10/2023 Lab Requisition [facility] Laboratory Services [address] [place] [address] [place] [address] [place] [address] Social History Tobacco Use Types Packs/Day Years Used Date Smoking Tobacco: Never Assessed Sex and Gender Information Value Date Recorded Sex Assigned at Not on file Legal Sex Male 9:18 AM FURNACE DOOR TENDER Gender Identity Not on file Sexual Orientation Not on file documented as of this encounter Plan of Treatment Not on file documented as of this encounter Procedures Procedure Name Priority Date/Time Associated Diagnosis Comments CBC WITH DIFFERENTIAL Routine 10/10/2023 3:30 AM FURNACE DOOR TENDER PTT Routine 10/10/2023 3:30 AM FURNACE DOOR TENDER PROTIME-INR Routine 10/10/2023 3:30 AM FURNACE DOOR TENDER PREALBUMIN Routine 10/10/2023 3:30 AM FURNACE DOOR TENDER COMPREHENSIVE METABOLIC PANEL Routine 10/10/2023 3:30 AM FURNACE DOOR TENDER documented in this encounter Results * PTT (10/10/2023 3:30 AM FURNACE DOOR TENDER) PTT 23.4 23.1 - 37.1 seconds 10/10/2023 10:14 AM FURNACE DOOR TENDER [facility] LABORATORY SERVICES [facility] Blood Collection / Unknown 10/10/2023 3:30 AM FURNACE DOOR TENDER 10/10/2023 9:51 AM FURNACE DOOR TENDER Erik Chairez MD HEMATOLOGY ORDERABLES Final Resu lt [facility] CLIA# [id number] [place] [address] * (ABNORMAL) PROTIME-INR (10/10/2023 3:30 AM FURNACE DOOR TENDER) PROTIME 15.0(H) 11.5 - 14.7 Seconds 10/10/2023 10:14 AM FURNACE DOOR TENDER [facility] LABORATORY [facility] INR 1.2(H) 0.9 - 1.1 10/10/2023 10:14 AM FURNACE DOOR TENDER [facility] LABORATORY [facility] Blood Collection / Unknown 10/10/2023 3:30 AM FURNACE DOOR TENDER 10/10/2023 9:51 AM FURNACE DOOR TENDER Erik Chairez MD HEMATOLOGY ORDERABLES Final Resu lt [facility] [employer] [facility] CLIA# [id number] [place] [address] * PREALBUMIN (10/10/2023 3:30 AM FURNACE DOOR TENDER) PREALBUMIN 23 20 - 40 mg/dL 10/10/2023 2:24 PM FURNACE DOOR TENDER [facility] LABORATORY [facility] Blood Collection / Unknown 10/10/2023 3:30 AM FURNACE DOOR TENDER 10/10/2023 9:51 AM FURNACE DOOR TENDER Erik Chairez MD CHEMISTRY ORDERABLES Final Resul t [facility] [employer] [facility] CLIA# [id number] [address] [place] [address] * (ABNORMAL) CBC WITH DIFFERENTIAL (10/10/2023 3:30 AM FURNACE DOOR TENDER) [facility] WBC 10.1 4.5 - 10.5 K/uL 10/10/2023 11:06 AM [facility] RBC 3.85(L) 4.50 - 5.40 M/uL 10/10/2023 11:06 AM [facility] HEMOGLOBIN 11.6(L) 13.6 - 16.5 g/dL 10/10/2023 11:06 AM [facility] [employer] [facility] HEMATOCRIT 36.6(L) 40.0 - 48.0 % 10/10/2023 11:06 AM [facility] [employer] [facility] MCV 95.2 82.0 - 99.0 fL 10/10/2023 11:06 AM [facility] [employer] [facility] MCH 30.1 27.8 - 34.5 pg 10/10/2023 11:06 AM [facility] [employer] [facility] MCHC 31.6(L) 32.5 - 35.5 g/dL 10/10/2023 11:06 AM [facility] [employer] [facility] RDW 19.2(H) 11.5 - 14.5 % 10/10/2023 11:06 AM [facility] [employer] [facility] PLATELETS 250 160 - 420 K/uL 10/10/2023 11:06 AM [facility] [employer] [facility] MPV 9.8 8.7 - 12.7 fL 10/10/2023 11:06 AM [facility] [employer] [facility] NEUTROPHILS 72 % 10/10/2023 11:06 AM [facility] [employer] [facility] LYMPHOCYTES 15 % 10/10/2023 11:06 AM FURNACE DOOR TENDER [facility] LABORATORY [facility] MONOCYTES 7 % 10/10/2023 11:06 AM FURNACE DOOR TENDER [facility] LABORATORY [facility] EOSINOPHILS 5 % 10/10/2023 11:06 AM FURNACE DOOR TENDER [facility] LABORATORY [facility] BASOPHILS 0 % 10/10/2023 11:06 AM [facility] LABORATORY [facility] NEUTROPHIL ABSOLUTE 7.20(H) 1.90 - 7.00 K/uL 10/10/2023 11:06 AM [facility] [employer] [facility] LYMPHOCYTE ABSOLUTE 1.50 0.70 - 4.50 K/uL 10/10/2023 11:06 AM FURNACE DOOR TENDER [facility] LABORATORY [facility] MONOCYTE ABSOLUTE 0.70 0.10 - 1.30 K/uL 10/10/2023 11:06 AM FURNACE DOOR TENDER [facility] LABORATORY [facility] EOSINOPHIL ABSOLUTE 0.50 0.00 - 0.70 K/uL 10/10/2023 11:06 AM FURNACE DOOR TENDER [facility] LABORATORY [facility] BASOPHILS ABSOLUTE 0.00 0.00 - 0.20 K/uL 10/10/2023 11:06 AM FURNACE DOOR TENDER [facility] [employer] [facility] Blood Collection / Unknown 10/10/2023 3:30 AM FURNACE DOOR TENDER 10/10/2023 9:51 AM FURNACE DOOR TENDER us Erik Chairez MD HEMATOLOGY ORDERABLES Final Resu lt [facility] CLIA# [id number] [place] [address] * (ABNORMAL) COMPREHENSIVE METABOLIC PANEL (10/10/2023 3:30 AM FURNACE DOOR TENDER) SODIUM 142 136 - 145 mmol/L 10/10/2023 10:49 AM [facility] [employer] [facility] POTASSIUM 4.1 3.4 - 5.1 mmol/L 10/10/2023 10:49 AM [facility] [employer] [facility] CHLORIDE 104 98 - 107 mmol/L 10/10/2023 10:49 AM [facility] [employer] [facility] CO2 23 22 - 29 mmol/L 10/10/2023 10:49 AM [facility] [employer] [facility] CALCIUM 9.4 8.6 - 10.4 mg/dL 10/10/2023 10:49 AM [facility] [employer] [facility] BUN 34(H) 6 - 20 mg/dL 10/10/2023 10:49 AM [facility] [employer] [facility] CREATININE 1.24(H) 0.67 - 1.17 mg/dL 10/10/2023 10:49 AM [facility] LABORATORY [facility] Comment:The GFR result is no t clinically significant on patients <18 or >70 years of age. GLUCOSE 91 74 - 99 mg/dL 10/10/2023 10:49 AM [facility] TOTAL PROTEIN 7.4 6.3 - 8.7 g/dL 10/10/2023 10:49 AM [facility] ALBUMIN 3.6 3.5 - 5.2 g/dL 10/10/2023 10:49 AM [facility] BILIRUBIN TOTAL 0.6 0.2 - 1.1 mg/dL 10/10/2023 10:49 AM [facility] ALKALINE PHOSPHATASE 84 40 - 150 U/L 10/10/2023 10:49 AM [facility] AST 15 0 - 41 U/L 10/10/2023 10:49 AM [facility] ALT 13 0 - 41 U/L 10/10/2023 10:49 AM [facility] GFR 58 mL/min/1.7 3 sq meter 10/10/2023 10:49 AM [facility] Comment:eGFR calculated with 2020 CKD-EPI equation. Vegetarian diet, extremely high or low muscle mass, and may affect results. Cystatin C with Glomerular Filtration Rate is a suitable alternative for these patients. 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
--- OUTSIDE RECORDS SUMMARY | 2024-11-06 18:40 | XMS_ITS | Encounter Summary ---
Author Organization [facility] Address [address] [place] [address] Care Team Providers Care Radiographer Name Role Phone Unavailable Primary Care Provider Unavailabl e Encounter Details Date Type Department Care Team (Late st Contact Info) Description 10/12/2023 Lab Requisition [facility] Laboratory Services [address] [place] [address] [place] [address] [place] [address] Social History Tobacco Use Types Packs/Day Years Used Date Smoking Tobacco: Never Assessed Sex and Gender Information Value Date Recorded Sex Assigned at Not on file Legal Sex Male 9:18 AM PLATER HELPER Gender Identity Not on file Sexual Orientation Not on file documented as of this encounter Plan of Treatment Not on file documented as of this encounter Procedures Procedure Name Priority Date/Time Associated Diagnosis Comments MAGNESIUM LEVEL Routine 10/12/2023 4:00 AM PLATER HELPER RENAL FUNCTION PANEL Routine 10/12/2023 4:00 AM PLATER HELPER documented in this encounter Results * MAGNESIUM LEVEL (10/12/2023 4:00 AM PLATER HELPER) MAGNESIUM 2.3 1.6 - 2.6 mg/dL 10/12/2023 6:02 AM PLATER HELPER [facility] Blood Collection / Unknown 10/12/2023 4:00 AM PLATER HELPER 10/12/2023 5:07 AM PLATER HELPER us Erik Chairez MD CHEMISTRY ORDERABLES Final Resul t [facility] [id number] [address] [place] [address] * (ABNORMAL) RENAL FUNCTION PANEL (10/12/2023 4:00 AM PLATER HELPER) SODIUM 139 136 - 145 mmol/L 10/12/2023 6:02 AM [facility] POTASSIUM 4.2 3.4 - 5.1 mmol/L 10/12/2023 6:02 AM [facility] CHLORIDE 102 98 - 107 mmol/L 10/12/2023 6:02 AM [facility] CO2 24 22 - 29 mmol/L 10/12/2023 6:02 AM [facility] CALCIUM 9.5 8.6 - 10.4 mg/dL 10/12/2023 6:02 AM [facility] BUN 43(H) 6 - 20 mg/dL 10/12/2023 6:02 AM [facility] CREATININE 1.20(H) 0.67 - 1.17 mg/dL 10/12/2023 6:02 AM [facility] Comment:The GFR result is no t clinically significant on patients <18 or >70 years of age. GLUCOSE 94 74 - 99 mg/dL 10/12/2023 6:02 AM [facility] ALBUMIN 3.4(L) 3.5 - 5.2 g/dL 10/12/2023 6:02 AM [facility] PHOSPHORUS 4.2 2.5 - 4.5 mg/dL 10/12/2023 6:02 AM [facility] GFR 60 mL/min/1.7 3 sq meter 10/12/2023 6:02 AM [facility] Comment:eGFR calculated with 2020 CKD-EPI equation. Vegetarian diet, extremely high or low muscle mass, and may affect results. Cystatin C with Glomerular Filtration Rate is a suitable alternative for these patients. 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
--- OUTSIDE RECORDS SUMMARY | 2024-11-06 18:40 | XMS_ITS | Encounter Summary ---
Author Organization [facility] Address [address] [place] [address] Care Team Providers Care Insurance Instructor Name Role Phone Demond Stark MD Primary Care Provider [phone] Reason for Visit * Reason Onset Date Comments cardiac clearance 11/05/2024 samples 11/05/2024 Encounter Details Date Type Department Care Team (Late st Contact Info) Description 11/05/2024 Telephone [facility] Cardiology [address] [facility] [address] [place] [address] Mando Luna MD [facility] [address] cardiac clearance; samples Social History [...] on file Legal Sex Male 8:49 AM BRIDGE WORKER Gender Identity Not on file Sexual Orientation Not on file documented as of this encounter Miscellaneous Notes * Telephone Encounter - Nilsa Watt RN - 11/05/2024 1:36 PM [employer]ID[employer] WORK[employer] Told pt he was fine to hold aspirin for 2 days as well and provided him with samples. GE WORKER * Telephone Encounter - Rosana Anand - [...] samples of rivaroxaban (Xarelto) 20 mg. Contact [phone] GE WORKER documented in this encounter Plan of Treatment Not on file documented as of this encounter Visit Diagnoses Not on filedocumented in this encounter Care Teams Insurance Instructor Relationship Specialty Start Date End Date Demond Stark MD PCP - General 07/23/11 documented as of this encounter
--- OUTSIDE RECORDS SUMMARY | 2024-11-06 18:40 | XMS_ITS | Encounter Summary ---
Author Organization [facility] Address [address] [place] [address] Care Team Providers Care Sales Agent Marine Insurance Name Role Phone Unavailable Primary Care Provider Unavailabl e Encounter Details Date Type Department Care Team (Late st Contact Info) Description 10/10/2023 Lab Requisition [facility] Laboratory Services [address] [place] [address] [place] [address] [place] [address] Social History Tobacco Use Types Packs/Day Years Used Date Smoking Tobacco: Never Assessed Sex and Gender Information Value Date Recorded Sex Assigned at Not on file Legal Sex Male 9:18 AM CHIEF RADIATION THERAPIST Gender Identity Not on file Sexual Orientation Not on file documented as of this encounter Plan of Treatment Not on file documented as of this encounter Procedures Procedure Name Priority Date/Time Associated Diagnosis Comments CARBAPENEM RESISTANT ORGANISM Routine 10/09/2023 9:30 PM CHIEF RADIATION THERAPIST SPUTUM CULTURE WITH GRAM STAIN Routine 10/09/2023 9:30 PM CHIEF RADIATION THERAPIST documented in this encounter Results * (ABNORMAL) CARBAPENEM RESISTANT ORGANISM (10/09/2023 9:30 PM CHIEF RADIATION THERAPIST) ORGANISM TESTED Klebsiella pneumoniae 10/12/2023 4:25 PM CHIEF RADIATION THERAPIST [facility] Carbapenem Resistance Gene Detected(A) Not Detected 10/12/2023 4:25 PM CHIEF RADIATION THERAPIST [facility] KPC (carbapenem-re sistance gene) by PCR DETECTED(A) Not Detected 10/12/2023 4:25 PM CHIEF RADIATION THERAPIST [facility] Sputum Collection / Unknown 10/09/2023 9:30 PM CHIEF RADIATION THERAPIST 10/10/2023 9:54 AM CHIEF RADIATION THERAPIST [facility] - 10/12/2023 4:25 PM CHIEF RADIATION THERAPIST This isolate is a carbapenem-resistant Organism (INSPECTING ENGINEER) AND is a carbapenamase-operator catalyst concentration. If inpatient, place patient in Enhanced Contact Isolation. The CepiPrint Xpert Carba-R PCR assay detects the presence of KPC, NDM, VIM, OXA- 48, and IMP gene sequences that induce carbapenemase production in gram negative bacteria. This test was performed using an FDA approved screening methodology. Erik Chairez MD MICROBIOLOGY - GENERAL ORDERABLE S Final Result [facility]# [id number] [address] [place] [id number] * (ABNORMAL) SPUTUM CULTURE WITH GRAM STAIN (10/09/2023 9:30 PM CHIEF RADIATION THERAPIST) CULTURE KLEBSIELLA PNEUMONIAE(A) LUCINA MCG/ML 10/17/2023 10:47 AM CHIEF RADIATION THERAPIST [facility] [employer] [facility] Comment: This isolate is a Carbapenem-Resistant Organism AND is a carbapenemase operator catalyst concentration (INSPECTING ENGINEER-CP). If inpatient, place patient in Enhanced Contact Isolation. Multiple drug resistant organism (MDRO). CULTURE Absent Normal Shahrzad LUCINA MCG/ML 10/17/2023 10:47 AM [facility] [employer] [facility] GRAM STAIN Non diagnostic pattern LUCINA MCG/ML 10/17/2023 10:47 AM [facility] GRAM STAIN No WBC observed 10/17/2023 10:47 AM [facility] [employer] [facility] Sputum Collection / Unknown 10/09/2023 9:30 PM CHIEF RADIATION THERAPIST 10/10/2023 9:54 AM CHIEF RADIATION THERAPIST [facility] [employer] [facility] - 10/17/2023 10:47 AM CHIEF RADIATION THERAPIST Results called to Kelly Suarez RN, Rosalie [...] Edited Result - Final Performing Organization Address City/State/[facility] Co de Phone Number [facility]# [id number] [address] [place] [address] documented in this encounter Visit Diagnoses Not on filedocumented in this encounter Additional Health Concerns Infection Onset Date Last Indicated Resolved Time CRE-CP Comment: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
--- OUTSIDE RECORDS SUMMARY | 2024-11-06 18:40 | XMS_ITS | Referral Summary ---
Author Organization [facility] Address [address] [place] [address] Care Team Providers Care Sharepoint Engineer Name Role Phone Demond Stark MD Primary Care Provider [phone] Source Comments [facility],non-owned Affiliates and Associated Physician Practices is amultiple site organization consisting of ambulatory clinics and hospital sitesin [place], [place], [place] and [place]. This disclosure is being madepursuant to the Care Everywhere program and may not contain all information available regarding this patient. Last updated 18.[facility] Encounters Date Type Department Care Team Description 11/02/2024 Orders Only [facility] - Neurology [address] [facility] [place] [address] Alberto Jeffers MD Falls ; Cerebrovascular accident (CVA), unspecified mechanism (HCC); Type 2 diabetes mellitus with other specified complication, unspecified whether longterm insulin use (HCC) 10/25/2024 Travel 10/25/2024 4:30 PM ASSURANCE SENIOR MANAGER INSURANCE - 10/25/2024 11:59 PM ASSURANCE SENIOR MANAGER INSURANCE Hospital Encounter [facility] MRI [address] [place] [address] Natalia Vann, DO Discharge Disposition: Home or Self Care 10/25/2024 4:30 PM ASSURANCE SENIOR MANAGER INSURANCE - 10/25/2024 11:59 PM ASSURANCE SENIOR MANAGER INSURANCE Hospital Encounter [facility] MRI [address] [place] [address] Natlaia Vann, DO Discharge Disposition: Home or Self Care 10/25/2024 4:30 PM ASSURANCE SENIOR MANAGER INSURANCE Hospital Encounter [facility] MRI [address] [place] [address] Natalia Vann, DO Discharge Disposition: Home or Self Care 10/17/2024 Travel 10/17/2024 5:55 PM ASSURANCE SENIOR MANAGER INSURANCE - 10/17/2024 11:59 PM ASSURANCE SENIOR MANAGER INSURANCE Hospital Encounter [facility] MRI [address] [place] [address] Natalia Vann, DO Discharge Disposition: Home or Self Care 10/09/2024 Travel 10/09/2024 11:00 AM ASSURANCE SENIOR MANAGER INSURANCE Office Visit [facility] - Neurology [address] [place] [phone] Alberto Jeffers MD Imbalance (Primary Dx); Back pain, unspecified back location, unspecified back pain laterality, unspecified chronicity; Cervical spine arthritis 08/28/2024 Travel 08/28/2024 10:00 AM ASSURANCE SENIOR MANAGER INSURANCE Office Visit [facility] - Neurology [address] [place] [address] Alberto Jeffers MD Parkinsonism, unspecified Parkinsonism type [...] Comments Blood Pressure 150/69 10/09/2024 10:39 AM ASSURANCE SENIOR MANAGER INSURANCE Pulse 67 10/09/2024 10:39 AM ASSURANCE SENIOR MANAGER INSURANCE Temperature 36.1 C (97 F) 05/24/2016 9:16 AM CDT Respiratory Rate 14 10/10/2015 9:00 PM ASSURANCE SENIOR MANAGER INSURANCE Oxygen Saturation 97% 08/28/2024 10:07 AM ASSURANCE SENIOR MANAGER INSURANCE Inhaled Oxygen Concentration - - Weight 100.2 kg (221 lb) 10/09/2024 10:39 AM ASSURANCE SENIOR MANAGER INSURANCE Height 182.9 cm (6') 11/21/2017 9:32 AM ASSURANCE SENIOR MANAGER INSURANCE Body Mass Index 29.97 11/21/2017 9:32 AM ASSURANCE SENIOR MANAGER INSURANCE Plan of Treatment Upcoming Encounters Date Type Department Care Team (Late st Contact Info) Description 01/01/2025 9:30 AM CDT Office Visit [facility] - Neurology [address] [facility] [place] [address] Alberto Jeffers MD [address] [facility] [place] [address] Procedures Procedure Name Priority Date/Time Associated Diagnosis Comments MRI THORACIC SPINE WO CONTRAST Routine 10/25/2024 6:20 PM ASSURANCE SENIOR MANAGER INSURANCE Imbalance Back pain, unspecified back location, unspecified back pain laterality, unspecified chronicity Cervical spine arthritis MRI LUMBAR SPINE WO CONTRAST Routine 10/25/2024 6:20 PM ASSURANCE SENIOR MANAGER INSURANCE Imbalance Back pain, unspecified back location, unspecified back pain laterality, unspecified chronicity Cervical spine arthritis MRI CERVICAL SPINE WO CONTRAST Routine 10/25/2024 6:20 PM ASSURANCE SENIOR MANAGER INSURANCE Imbalance Back pain, unspecified back location, unspecified back pain laterality, unspecified chronicity Cervical spine arthritis MRI BRAIN WWO CONTRAST Routine 10/17/2024 6:43 PM ASSURANCE SENIOR MANAGER INSURANCE Imbalance Back pain, unspecified back location, unspecified back pain laterality, unspecified chronicity Cervical spine arthritis from Last 3 Months Results * MRI Thoracic Spine Wo Contrast (10/25/2024 6:20 PM ASSURANCE SENIOR MANAGER INSURANCE) Anatomical Region Laterality Modality Chest Magnetic Resonan ce 11/01/2024 10:3 8 AM ASSURANCE SENIOR MANAGER INSURANCE Impressions 11/01/2024 11:01 AM ASSURANCE SENIOR MANAGER INSURANCE IMPRESSION: 1. No acute findings in the thoracic spine. No cord abnormality or cord compression. 2. Mild multilevel degenerative disc disease and mild to moderate multilevel facet as a synovitis in the lumbar spine. No central canal stenosis. > Interpreting Provider: Mikaela Cunningham MD on 11/01/2024 11:01 AM Narrative 11/01/2024 11:01 AM ASSURANCE SENIOR MANAGER INSURANCE PROCEDURE: MRI THORACIC SPINE WO CONTRAST, DATE/TIME OF EXAM: 10/25/2024 6:20 PM, LOCATION [facility] INDICATION: R26.89: Imbalance M54.9: Back pain, [...] DATE/TIME OF EXAM: 10/25/2024 6:20 PM, LOCATION [facility] INDICATION: R26.89: Imbalance M54.9: Back pain, [...] Lumbar Spine Wo Contrast (10/25/2024 6:20 PM ASSURANCE SENIOR MANAGER INSURANCE) Anatomical Region Laterality Modality Spine Magnetic Resonan ce 11/01/2024 11:0 1 AM ASSURANCE SENIOR MANAGER INSURANCE Impressions 11/01/2024 11:09 AM ASSURANCE SENIOR MANAGER INSURANCE IMPRESSION: 1. 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 No significant central canal or neuroforamina stenosis. > Interpreting Provider: Mikaela Cunningham MD on 11/01/2024 11:09 AM Narrative 11/01/2024 11:09 AM ASSURANCE SENIOR MANAGER INSURANCE PROCEDURE: MRI LUMBAR SPINE WO CONTRAST, DATE/TIME OF EXAM: 10/25/2024 6:20 PM, LOCATION [facility] INDICATION: R26.89: Imbalance M54.9: Back pain, [...] CONTRAST, DATE/TIME OF EXAM: :20 PM, LOCATION [facility] INDICATION: R26.89: Imbalance M54.9: Back pain, [...] Cervical Spine Wo Contrast (10/25/2024 6:20 PM ASSURANCE SENIOR MANAGER INSURANCE) Anatomical Region Laterality Modality Pelvis Magnetic Resonan ce 11/01/2024 10:3 1 AM ASSURANCE SENIOR MANAGER INSURANCE Impressions 11/01/2024 10:38 AM ASSURANCE SENIOR MANAGER INSURANCE IMPRESSION: 1. 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 > Interpreting Provider: Mikaela Cunningham MD on 11/01/2024 10:38 AM Narrative 11/01/2024 10:38 AM ASSURANCE SENIOR MANAGER INSURANCE PROCEDURE: MRI CERVICAL SPINE WO CONTRAST, DATE/TIME OF EXAM: 10/25/2024 6:20 PM, LOCATION [facility] INDICATION: R26.89: Imbalance M54.9: Back pain, [...] DATE/TIME OF EXAM: 10/25/2024 6:20 PM, LOCATION [facility] INDICATION: R26.89: Imbalance M54.9: Back pain, [...] MRI Brain Wwo Contrast (10/17/2024 6:43 PM ASSURANCE SENIOR MANAGER INSURANCE) Anatomical Region Laterality Modality Head Magnetic Resonan ce 10/22/2024 4:16 PM ASSURANCE SENIOR MANAGER INSURANCE Impressions 10/22/2024 4:28 PM ASSURANCE SENIOR MANAGER INSURANCE IMPRESSION: 1. No acute intracranial process. Specifically, [...] 10/22/2024 4:28 PM Narrative 10/22/2024 4:28 PM ASSURANCE SENIOR MANAGER INSURANCE PROCEDURE: MRI BRAIN WWO CONTRAST, DATE/TIME OF EXAM: 10/17/2024 6:45 PM, LOCATION [facility] INDICATION: R26.89: Imbalance M54.9: Back pain, [...] CONTRAST, DATE/TIME OF EXAM: 10/17/2024 6:45PM, LOCATION [facility] INDICATION: R26.89: Imbalance M54.9: Back pain, [...] ORDERABLES from Last 3 Months Care Teams Sharepoint Engineer Relationship Specialty Start Date End Date Demond Stark MD [address] [place] [address] PCP - General 10/03/15
--- OUTSIDE RECORDS SUMMARY | 2024-11-06 18:40 | XMS_ITS | Clinical Summary ---
Author Organization [facility] Address [address] [place] [address] Care Team Providers Care Director Teen Post Name Role Phone Demond Stark MD Primary Care Provider [phone] Allergies Active Allergy Reactions Criticality Noted Date Comments Diphenhydramine Hallucinations Medium 11/27/2023 Was not able to sleep and made him more anxious Lisinopril Cough Low Reaction: Cough, Pravastatin Muscle pain Medium Reaction: Muscular Pain, Quetiapine Other (See comments) Low 06/05/2024 Hallucinations, insomnia Simvastatin Muscle pain Medium Reaction: Muscular Pain, Znbrfhq-Fls-Llu Reductase Inhibitors Muscle pain,Other (See comments) Medium 10/03/2015 Pt reports leg weakness/heavine ss when taking zocor. Medications levothyroxine (SYNTHROID) 112 mcg tablet Take 1 tablet (112 mcg total) by mouth skid adzer before breakfast Active aspirin 81 mg tablet [...] 08/31/2024 Assessment & Plan (10/05/2024 10:54 AM JORDAN WORKER): Avoid ear cleaning techniques Avoid water to ears Follow up in 9 months for right ear tube check, earlier with ear drainage Assessment & Plan (08/31/2024 11:40 AM JORDAN WORKER): Right myringotomy with T-tube placement Risks and [...] 07/09/2024 Assessment & Plan (08/31/2024 11:39 AM JORDAN WORKER): Right myringotomy with T-tube placement Risks and [...] 08/07/2017 Assessment & Plan (08/07/2017 6:01 PM JORDAN WORKER): Has had elevated LFTs and a fatty liver. Bradycardia 08/07/2017 Assessment & Plan (08/07/2017 5:58 PM JORDAN WORKER): Asymptomatic bradycardia, on low-dose metoprolol which may eventually need to be reduced or discontinued. Traumatic subdural hematoma of neuraxis 10/15/19 17 Overview (12/28/2016): Traumatic subdural hematoma without loss of consciousness, sequela Statin intolerance 10/15/2016 Overview (12/28/2016): Statin intolerance Essential hypertension 07/20/2013 Overview (12/28/2016): Hypertension Assessment & Plan (08/07/2017 5:57 PM JORDAN WORKER): Hypertension is not under good control; reviewing [...] HYPERLIPIDEMIA Assessment & Plan (08/07/2017 6:03 PM JORDAN WORKER): Has refued further attempts at statin therapy. History of coronary artery bypass surgery 2009 Overview (12/26/2016): AORTOCORONARY BYPASS Coronary arteriosclerosis in eastern [place] artery 12/20 Overview (08/07/2017): CRNRY ATHRSCL NATVE VSSL 2009: Non STEMI and CABG x3 (HOBSON to the LAD, sequential RA to OM and D1) Assessment & Plan (08/07/2017 6:00 PM JORDAN WORKER): 2009: Non STEMI and CABG x3 (HOBSON [...] 03/04/2018 Assessment & Plan (08/07/2017 5:58 PM JORDAN WORKER): Patient is going to have knee surgery soon and needs preoperative clearance. Coronary artery disease appears stable. Low risk for cardiac event with proposed surgery. 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/2009 03/25/2023 Overview (12/28/2016): SUBENDO INFARCT, SUBSEQ Encounters Date Type Department Care Team Description 11/05/2024 Telephone [facility] Cardiology [address] [place] [address] Cedric Dumont MD cardiac clearance; samples 10/05/2024 10:45 AM JORDAN WORKER Office Visit [facility] - [address] [place] [address] Laura Oakes, DO Dysfunction of right eustachian tube (Primary Dx) 09/29/2024 Telephone [facility] - [address] [place] [address] Mery Mauricio MA 09/22/2024 11:21 AM JORDAN WORKER Anesthesia Event [facility] Operating Room [address] [place] [address] Katherine Barber MD Reynolds, Ethan Emerson, MD 09/22/2024 11:00 AM JORDAN WORKER - 09/22/2024 11:40 AM JORDAN WORKER Surgery [facility] Operating Room [address] [place] [address] Laura Oakes, DO Right myringotomy with T-tube placement [26868 (CPT )] 09/22/2024 9:24 AM JORDAN WORKER - 09/22/2024 1:20 PM JORDAN WORKER Hospital Encounter [facility] Operating Room [address] [place] [address] Laura Oakes, DO Dysfunction of right eustachian tube [H69.91] (Primary Dx) Discharge Disposition: Discharge to home or self care 09/07/2024 11:15 AM JORDAN WORKER Ancillary Procedure [facility] Cardiology [address] [place] [address] Coronary arteriosclerosis in [place] artery; Pre-operative cardiovascular examination 08/31/2024 11:30 AM JORDAN WORKER Procedure visit [facility]ists at [address] [place] [address] Renetta Barrientos Au.D. Mixed conductive and sensorineural hearing loss of right ear with restricted hearing of left ear (Primary Dx); Dysfunction of right eustachian tube 08/31/2024 11:15 AM JORDAN WORKER Office Visit [facility] - [address] [place] [address] Laura Oakes DO Dysfunction of right eustachian tube (Primary Dx); Dizziness 08/19/2024 1:45 PM JORDAN WORKER Office Visit [facility] Cardiology [address] [place] [address] Cedric Dumont MD Coronary arteriosclerosis in [place] artery (Primary Dx); Essential hypertension; Persistent atrial [...] on file Legal Sex Male 8:49 AM JORDAN WORKER Gender Identity Not on file Sexual Orientation Not on file Obstetrics History Last Filed Vital Signs Vital Sign Reading Time Taken Comments Blood Pressure 160/88 09/22/2024 1:04 PM JORDAN WORKER Pulse 83 09/22/2024 1:04 PM JORDAN WORKER Temperature 36.3 C (97.4 F) 09/22/2024 1:04 PM JORDAN WORKER Respiratory Rate 18 09/22/2024 1:04 PM JORDAN WORKER Oxygen Saturation 97% 09/22/2024 1:04 PM JORDAN WORKER Inhaled Oxygen Concentration - - Weight 97.5 kg (214 lb 15.2 oz) 024 9:41 AM JORDAN WORKER Height 182.9 cm (6') 09/22/2024 9:41 AM JORDAN WORKER Body Mass Index 29.15 09/22/2024 9:41 AM JORDAN WORKER Plan of Treatment Health Maintenance Due Date [...] 09/01/2025 09/01/2024 Medical Devices Implanted Type Area Warehouse Production Worker Device Identifier Shelf Expiration Date Model / Serial / Lot [employer] 1.32mm 4.8mm Modify Ear T Tube Ventilation Ultrasil [employer] Blue [id number] - [id number] Implanted:Qty: 1 on 09/22/2024 by Laura Oakes DO at [facility] Right: Ear [employer] 07/13/2034 [id number] / / [id number] Procedures Procedure Name Priority Date/Time Associated Diagnosis Comments HI AN ELECTIVE SUPRAGLOTTIC AIRWAY Routine 09/22/2024 11:28 AM JORDAN WORKER HI TYMPANOSTOMY GENERAL ANESTHESIA 09/22/2024 11:11 AM JORDAN WORKER Dysfunction of right eustachian tube ECG 12-LEAD STAT 09/22/2024 9:59 AM JORDAN WORKER NM MPI SPECT (REST AND/OR STRESS) MULTIPLE STUDIES Schedule Routine, Read Routine (OP Routine) 09/07/2024 12:25 PM JORDAN WORKER Coronary arteriosclerosis in [place] artery Pre-operative cardiovascular examination AUDIOGRAM Routine 08/31/2024 11:30 AM JORDAN WORKER Mixed conductive and sensorineural hearing loss of right ear with restricted hearing of left ear from Last 3 Months Results * HI AN ELECTIVE SUPRAGLOTTIC AIRWAY (09/22/2024 11:28 AM JORDAN WORKER) Narrative Gwendolyn Nicholas CRNA - 09/22/2024 11:28 AM JORDAN WORKER Gwendolyn Nicholas CRNA 09/22/2024 11:29 AM Airway Patient location: OR Urgency: elective Indications for airway management: anesthesia Difficult airway: no Staff: Placed by: FUNDRAISING SALE REPRESENTATIVE: Gwendolyn Nicholas CRNA Emergent airway documentation: Risks [...] * ECG 12 lead (09/22/2024 9:59 AM JORDAN WORKER) 09/22/2024 9:59 AM JORDAN WORKER Narrative [facility] - 09/22/2024 12:03 PM JORDAN WORKER Vent Rate: 80 bpm RR Interval: 746 msec HI Interval: 0 msec QRS Duration: 94 msec QT Interval: 399 msec QTC Interval: 435 msec P-R-T [place]: [id number] - 7 - -16 degrees IMPRESSION: ATRIAL FIBRILLATION No prior EKG for comparison. Electronically Signed By: Dr Wali Espinal us Leland Valle MD ECG ORDERABLES Final Result [facility] * NM MPI SPECT (Rest and/or Stress) Multiple Studies (09/07/2024 12:25 PM JORDAN WORKER) Anatomical Region Laterality Modality Body N/A Nuclear Medicine 09/07/2024 9:51 AM JORDAN WORKER Narrative 09/08/2024 12:56 PM JORDAN WORKER [facility] [address] [facility] [address] [address] [address] [facility] [address], [place] [address] P:[phone] P:[phone] MPI Imaging Report Patient Name: LINCOLN KIMBALL L : 1940 Study Date: 09/07/2024 9:51:42 AM Gender: M Tech: [facility] Location: [facility] Provider: CEDRIC DUMONT Height(Cm): 185.4 BSA: [...] Former Smoker, I25.10 Atherosclerotic heart disease of [place] coronary artery without angina pectoris, and Z01.810 [...] mid inferolateral daugherty, consistent with prior inferior ND. Left ventricular ejection fraction is 43 %. There is mild LV dysfunction. There is hypokinesis in the basal inferior segment and mid inferior segment. Electronically Signed By: Cedric Dumont MD 09/07/2024 12:59:59 PM JORDAN WORKER Electronically Signed By: Do Meier DO, [facility], FASE, FASGA 09/08/2024 12:55:38 PM JORDAN WORKER Procedure Note Do Meier DO - 09/08/2024 [facility] [address] [facility] [address], [place] [address] [address] [facility] [address], [place] [address] P:[phone] P:[phone] MPI Imaging Report Patient Name: LINCOLN KIMBALL L : 1940 Study Date: 09/07/2024 9:51:42 AM Gender: M [facility] Provider: CEDRIC DUMONT Height(Cm): 185.4 BSA: [...] Cholesterol, Former Smoker, I25.10 Atheroscleroticheart disease of [place] coronary artery without angina pectoris, and Z01.810 [...] to mid inferolateral daugherty, consistentwith prior inferior ND. Left ventricular ejection fraction is 43 %. There is mild LVdysfunction. There is hypokinesis in the basal inferior segment and mid inferiorsegment. Electronically Signed By: Cedric Dumont MD 09/07/2024 12:59:59 PM JORDAN WORKER Electronically Signed By: Do Meier DO, FACShama, MARIO, JOSIAH 09/08/2024 12:55:38 PM JORDAN WORKER us Cedric Dumont MD IMG NM PROCEDURES Final R esult * AUDIOGRAM (08/31/2024 11:30 AM JORDAN WORKER) Narrative Renetta Barrientos Au.D. - 08/31/2024 11:30 AM JORDAN WORKER Renetta Barrientos Au.D. 08/31/2024 1:35 PM Audiogram Performed by: Renetta Barrientos Au.D. Authorized by: Laura Oakes, Laura Oakes DO AUDIOLOGY SERVICES ORDERABLE S Final Result from Last 3 Months Insurance MEDICARE MEDICARE [facility] MEDICARE SUPPLEMENT Care Teams Director Teen Post Relationship Specialty Start Date End Date Demond Stark MD PCP - General 07/23/11
--- OUTSIDE RECORDS SUMMARY | 2024-11-06 18:40 | XMS_ITS | Encounter Summary ---
Author Organization [facility] Address [address] [place] [address] Care Team Providers Care Display Card Writer Name Role Phone Unavailable Primary Care Provider Unavailabl e Encounter Details Date Type Department Care Team (Late st Contact Info) Description 10/13/2023 Lab Requisition [facility] Laboratory Services [id number] [place] [address] [place] [address] [place] [address] Social History Tobacco Use Types Packs/Day Years Used Date Smoking Tobacco: Never Assessed Sex and Gender Information Value Date Recorded Sex Assigned at Not on file Legal Sex Male 9:18 AM SPORTS COORDINATOR Gender Identity Not on file Sexual Orientation Not on file documented as of this encounter Plan of Treatment Not on file documented as of this encounter Procedures Procedure Name Priority Date/Time Associated Diagnosis Comments MAGNESIUM LEVEL Routine 10/13/2023 4:00 AM SPORTS COORDINATOR RENAL FUNCTION PANEL Routine 10/13/2023 4:00 AM SPORTS COORDINATOR documented in this encounter Results * MAGNESIUM LEVEL (10/13/2023 4:00 AM SPORTS COORDINATOR) MAGNESIUM 2.3 1.6 - 2.6 mg/dL 10/13/2023 5:59 AM SPORTS COORDINATOR [facility] [employer] [facility] Blood Collection / Unknown 10/13/2023 4:00 AM SPORTS COORDINATOR 10/13/2023 5:20 AM SPORTS COORDINATOR us Erik Chairez MD CHEMISTRY ORDERABLES [id number] [address] [place] [address] * (ABNORMAL) RENAL FUNCTION PANEL (10/13/2023 4:00 AM SPORTS COORDINATOR) SODIUM 138 136 - 145 mmol/L 10/13/2023 5:58 AM [facility] POTASSIUM 4.5 3.4 - 5.1 mmol/L 10/13/2023 5:58 AM [facility] CHLORIDE 100 98 - 107 mmol/L 10/13/2023 5:58 AM [facility] CO2 25 22 - 29 mmol/L 10/13/2023 5:58 AM [facility] CALCIUM 9.6 8.6 - 10.4 mg/dL 10/13/2023 5:58 AM [facility] BUN 39(H) 6 - 20 mg/dL 10/13/2023 5:58 AM [facility] CREATININE 1.09 0.67 - 1.17 mg/dL 10/13/2023 5:58 AM [facility] Comment:The GFR result is no t clinically significant on patients <18 or >70 years of age. GLUCOSE 100(H) 74 - 99 mg/dL 10/13/2023 5:58 AM [facility] ALBUMIN 3.5 3.5 - 5.2 g/dL 10/13/2023 5:58 AM [facility] PHOSPHORUS 4.8(H) 2.5 - 4.5 mg/dL 10/13/2023 5:58 AM [facility] GFR >60 mL/min/1.7 3 sq meter 10/13/2023 5:58 AM [facility] Comment:eGFR calculated with 2020 CKD-EPI equation. Vegetarian diet, extremely high or low muscle mass, and may affect results. Cystatin C with Glomerular Filtration Rate is a suitable alternative for these patients. ANION GAP 13 8 - 16 mmol/L 10/13/2023 5:58 AM [facility] Blood Collection / Unknown 10/13/2023 4:00 AM SPORTS COORDINATOR 10/13/2023 5:20 AM SPORTS COORDINATOR Erik Chairez MD CHEMISTRY ORDERABLES Final Resul t [facility] LABORATORY SERVICES [facility] CLIA# [id number] [address] [place] [address] documented in this encounter Visit Diagnoses Not on filedocumented in this encounter Additional Health Concerns Infection Onset Date Last Indicated Resolved Time CRE-CP Comment:10/09/23 Klebsiella pneumoniae, Sputum 10/09/2023 10/09/2023 05/28/2024 2:37 PM C 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
--- OUTSIDE RECORDS SUMMARY | 2024-11-06 18:40 | XMS_ITS | Clinical Summary ---
Author Organization [facility] Facility Address [address] [place] [address] Care Team Providers Care Cutter Operator Name Role Phone Demond Stark MD Primary Care Provider [phone] Social History Tobacco Use Types Packs/Day Years [...] Diabetes: Visual Foot Exam 11/02/2024 Care Teams Cutter Operator Relationship Specialty Start Date End Date Demond Stark MD [address] [place] [address] PCP - General Family Medicine 06/04/24
--- OUTSIDE RECORDS SUMMARY | 2024-11-06 18:40 | XMS_ITS | Clinical Summary ---
Author Organization [facility] [email or web address] Address [address] [place] [address] Care Team Providers Care Iron Guardrail Installer Name Role Phone Demond Stark MD Primary Care Provider [phone] Source Comments [facility] [email or web address]non-owned Affiliates and Associated Physician Practices is amultiple site organization consisting of ambulatory clinics and hospital sitesin [place], [place], [place] and [place]. This disclosure is being madepursuant to the Care Everywhere program and may not contain all information available regarding this patient. Last updated 18.[facility] [email or web address] Allergies Active Allergy Reactions Criticality Noted Date [...] Department Care Team Description 11/02/2024 Orders Only [facility] - Neurology [address] [facility] [place] [address] Alberto Jeffers MD Falls ; Cerebrovascular accident (CVA), unspecified mechanism (HCC); Type 2 diabetes mellitus with other specified complication, unspecified whether correction insulin use (HCC) 10/25/2024 4:30 PM CISTERN ROOM OPERATOR - 10/25/2024 11:59 PM [facility] Hospital Encounter [id number] [place] [address] Natalia Vann, DO Discharge Disposition: Home or Self Care 10/25/2024 4:30 PM CISTERN ROOM OPERATOR - 10/25/2024 11:59 PM [facility] Hospital Encounter [id number] [place] [address] Natalia Vann, DO Discharge Disposition: Home or Self Care 10/25/2024 4:30 PM [facility] Hospital Encounter [address] [address] Natalia Vann, DO Discharge Disposition: Home or Self Care 10/25/2024 Travel 10/17/2024 5:55 PM CISTERN ROOM OPERATOR - 10/17/2024 11:59 PM CISTERN ROOM OPERATOR Hospital Encounter [facility] MRI [address] [place] [address] Natalia Vann, DO Discharge Disposition: Home or Self Care 10/17/2024 Travel 10/09/2024 11:00 AM CISTERN ROOM OPERATOR Office Visit [facility] - Neurology [address] [place] [address] Alberto Jeffers MD Imbalance (Primary Dx); Back pain, unspecified back location, unspecified back pain laterality, unspecified chronicity; Cervical spine arthritis 10/09/2024 Travel 08/28/2024 10:00 AM CISTERN ROOM OPERATOR Office Visit [facility] - Neurology [address] [place] [address] Alberto Jeffers MD Parkinsonism, unspecified Parkinsonism type [...] Comments Blood Pressure 150/69 10/09/2024 10:39 AM CISTERN ROOM OPERATOR Pulse 67 10/09/2024 10:39 AM CISTERN ROOM OPERATOR Temperature 36.1 C (97 F) 05/24/2016 9:16 AM CDT Respiratory Rate 14 10/10/2015 9:00 PM CISTERN ROOM OPERATOR Oxygen Saturation 97% 08/28/2024 10:07 AM CISTERN ROOM OPERATOR Inhaled Oxygen Concentration - - Weight 100.2 kg (221 lb) 10/09/2024 10:39 AM CISTERN ROOM OPERATOR Height 182.9 cm (6') 11/21/2017 9:32 AM CISTERN ROOM OPERATOR Body Mass Index 29.97 11/21/2017 9:32 AM CISTERN ROOM OPERATOR Plan of Treatment Upcoming Encounters Date Type Department Care Team (Late st Contact Info) Description 01/01/2025 9:30 AM CDT Office Visit [facility] - Neurology [address] [facility] [place] [address] Alberto Jeffers MD [address] [facility] [place] [address] Health Maintenance Due Date Last Done Comments [...] SPINE WO CONTRAST Routine 10/25/2024 6:20 PM CISTERN ROOM OPERATOR Imbalance Back pain, unspecified back location, unspecified back pain laterality, unspecified chronicity Cervical spine arthritis MRI LUMBAR SPINE WO CONTRAST Routine 10/25/2024 6:20 PM CISTERN ROOM OPERATOR Imbalance Back pain, unspecified back location, unspecified back pain laterality, unspecified chronicity Cervical spine arthritis MRI CERVICAL SPINE WO CONTRAST Routine 10/25/2024 6:20 PM CISTERN ROOM OPERATOR Imbalance Back pain, unspecified back location, unspecified back pain laterality, unspecified chronicity Cervical spine arthritis MRI BRAIN WWO CONTRAST Routine 10/17/2024 6:43 PM CISTERN ROOM OPERATOR Imbalance Back pain, unspecified back location, unspecified back pain laterality, unspecified chronicity Cervical spine arthritis from Last 3 Months Results * MRI Thoracic Spine Wo Contrast (10/25/2024 6:20 PM CISTERN ROOM OPERATOR) Anatomical Region Laterality Modality Chest Magnetic Resonan ce 11/01/2024 10:3 8 AM CISTERN ROOM OPERATOR Impressions 11/01/2024 11:01 AM CISTERN ROOM OPERATOR IMPRESSION: 1. No acute findings in the thoracic spine. No cord abnormality or cord compression. 2. Mild multilevel degenerative disc disease and mild to moderate multilevel facet as a synovitis in the lumbar spine. No central canal stenosis. > Interpreting Provider: Mikaela Cunningham MD on 11/01/2024 11:01 AM Narrative 11/01/2024 11:01 AM CISTERN ROOM OPERATOR PROCEDURE: MRI THORACIC SPINE WO CONTRAST, DATE/TIME OF EXAM: 10/25/2024 6:20 PM, LOCATION [facility] INDICATION: R26.89: Imbalance M54.9: Back pain, unspecified [...] DATE/TIME OF EXAM: 10/25/2024 6:20 PM, LOCATION [facility] INDICATION: R26.89: Imbalance M54.9: Back pain, unspecified [...] Lumbar Spine Wo Contrast (10/25/2024 6:20 PM CISTERN ROOM OPERATOR) Anatomical Region Laterality Modality Spine Magnetic Resonan ce 11/01/2024 11:0 1 AM CISTERN ROOM OPERATOR Impressions 11/01/2024 11:09 AM CISTERN ROOM OPERATOR IMPRESSION: 1. 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 No significant central canal or neuroforamina stenosis. > Interpreting Provider: Mikaela Cunningham MD on 11/01/2024 11:09 AM Narrative 11/01/2024 11:09 AM CISTERN ROOM OPERATOR PROCEDURE: MRI LUMBAR SPINE WO CONTRAST, DATE/TIME OF EXAM: 10/25/2024 6:20 PM, LOCATION [facility] INDICATION: R26.89: Imbalance M54.9: Back pain, unspecified [...] CONTRAST, DATE/TIME OF EXAM: :20 PM, LOCATION [facility] INDICATION: R26.89: Imbalance M54.9: Back pain, unspecified [...] Cervical Spine Wo Contrast (10/25/2024 6:20 PM CISTERN ROOM OPERATOR) Anatomical Region Laterality Modality Pelvis Magnetic Resonan ce 11/01/2024 10:3 1 AM CISTERN ROOM OPERATOR Impressions 11/01/2024 10:38 AM CISTERN ROOM OPERATOR IMPRESSION: 1. 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 > Interpreting Provider: Mikaela Cunningham MD on 11/01/2024 10:38 AM Narrative 11/01/2024 10:38 AM CISTERN ROOM OPERATOR PROCEDURE: MRI CERVICAL SPINE WO CONTRAST, DATE/TIME OF EXAM: 10/25/2024 6:20 PM, LOCATION [facility] INDICATION: R26.89: Imbalance M54.9: Back pain, unspecified [...] DATE/TIME OF EXAM: 10/25/2024 6:20 PM, LOCATION [facility] INDICATION: R26.89: Imbalance M54.9: Back pain, unspecified [...] MRI Brain Wwo Contrast (10/17/2024 6:43 PM CISTERN ROOM OPERATOR) Anatomical Region Laterality Modality Head Magnetic Resonan ce 10/22/2024 4:16 PM CISTERN ROOM OPERATOR Impressions 10/22/2024 4:28 PM CISTERN ROOM OPERATOR IMPRESSION: 1. No acute intracranial process. Specifically, [...] 10/22/2024 4:28 PM Narrative 10/22/2024 4:28 PM CISTERN ROOM OPERATOR PROCEDURE: MRI BRAIN WWO CONTRAST, DATE/TIME OF EXAM: 10/17/2024 6:45 PM, LOCATION [facility] INDICATION: R26.89: Imbalance M54.9: Back pain, unspecified [...] CONTRAST, DATE/TIME OF EXAM: 10/17/2024 6:45PM, LOCATION [facility] INDICATION: R26.89: Imbalance M54.9: Back pain, unspecified [...] ORDERABLES from Last 3 Months Care Teams Iron Guardrail Installer Relationship Specialty Start Date End Date Demond Stark MD [address] [place] [address] PCP - General 10/03/15
--- OUTSIDE RECORDS SUMMARY | 2024-11-06 18:40 | XMS_ITS | Encounter Summary ---
Author Organization [facility] Address [facility] [place] [address] Care Team Providers Care Resident Services Supervisor Name Role Phone Demond Stark MD Primary Care Provider [phone] Reason for Referral * Radiology Services (Routine) - Open Specialty Diagnoses / Procedures Referred By Rosa kruger Referred To Contact MRI Diagnoses Cerebrovascular accident (CVA), unspecified mechanism (HCC) Type 2 diabetes mellitus with other specified complication, unspecified whether parts counterman insulin use (HCC) Procedures MRI Brain Wwo Contrast Natalia Vann DO [address] [place] [address] Referral ID Status Reason Start Date Expiration Date Visits Re quested Visits Authorized [id number] Open 05/07/2025 05/07/2026 1 1 DICHLOROBENZENE MACHINE OPERATOR Encounter Details Date Type Department Care Team (Late st Contact Info) Description 11/02/2024 Orders Only [facility] - Neurology [address] [facility] [place] [address] Alberto Jeffers MD [address] [facility] [place] [address] Falls ; Cerebrovascular accident (CVA), unspecified mechanism (HCC); Type 2 diabetes mellitus with other specified complication, unspecified whether parts counterman insulin use (HCC) Social History Tobacco Use [...] Visit [facility] - Neurology [address] [facility] [place] [address] Alberto Jeffers MD [address] [facility] [place] [address] Scheduled Orders Name Type Priority Associated Diagnoses Orde r Schedule HEMOGLOBIN A1C Lab Routine Cerebrovascular accident (CVA), unspecified mechanism (HCC) Type 2 diabetes mellitus with other specified complication, unspecified whether parts counterman insulin use (HCC) 1 Occurrences starting 11/02/2024 until 11/27/2025 LIPID PROFILE Lab Routine Cerebrovascular accident (CVA), unspecified mechanism (HCC) Type 2 diabetes mellitus with other specified complication, unspecified whether usp insulin use (HCC) 1 Occurrences starting 11/02/2024 until 11/27/2025 MRI Brain Wwo Contrast Imaging Routine Cerebrovascular accident (CVA), unspecified mechanism (HCC) Type 2 diabetes mellitus with other specified complication, unspecified whether usp insulin use (HCC) Expected: 05/07/2025 (Approximate), Expires: 11/02/2025 documented as of this encounter Visit Diagnoses Diagnosis Falls- Primary Unspecified fall Cerebrovascular accident (CVA), unspecified mechanism (HCC) Type 2 diabetes mellitus with other specified complication, unspecified whether usp insulin use (HCC) documented in this encounter Care Teams Resident Services Supervisor Relationship Specialty Start Date End Date Demond Stark MD [address] [place] [address] PCP - General 10/03/15 documented as of this encounter
--- OUTSIDE RECORDS SUMMARY | 2024-11-06 18:40 | XMS_ITS | Continuity of Care Document ---
Author Organization [facility] Address [address] [place] [address] [place] [address] Phone Care Team Providers Care Equipment Installation Professional Name Role Phone Karsten Masno MD Unavailable Unavailable Procedures Procedure Date Office/outpatient Visit, [facility] Advance Directives Directive Yes / No Effective Date File Name No Information Encounters Encounter Description Practice Location Reason(s) For Visit Diagnoses Date Provider Providers Copied on Encounter Office/outpat ient Visit, [facility], [id number] [place] [address] [address], [place], [place], [id number], [place] tel:[phone] [facility] No Information [phone] [facility] [address], [place], [place], [id number], [place]. tel:[phone] Family History Family Member Type Diagnosis Age At Onset No Information Payers Payer name Insurance type Covered green party ID Authoriza tion(s) Medicare [facility] [id number] Social History Type Description Quantity Date Captured [...]
--- OUTSIDE RECORDS SUMMARY | 2024-11-06 18:40 | XMS_ITS | Clinical Summary ---
Author Organization [facility] Address [address] [place] [address] Phone Care Team Providers Care Chartered Accountant Name Role Phone Unavailable Primary Care Provider Unavailabl e Social History Tobacco Use Types Packs/Day Years Used Date Smoking Tobacco: Never Assessed Sex and Gender Information Value Date Recorded Sex Assigned at Not on file Legal Sex Male 9:18 AM CALENDAR CONTROL CLERK BLOOD BANK Gender Identity Not on file Sexual Orientation [...] Klebsiella pneumoniae, CRE-CP organism, Sputum 10/09/2023 10/09/2023 TRANSCRIPT EVALUATOR-CP Comment:10/09/23 Klebsiella pneumoniae, Sputum 10/09/2023 05/28/[address] [place] [address]
--- OUTSIDE RECORDS SUMMARY | 2024-11-06 18:40 | XMS_ITS | Encounter Summary ---
Author Organization [facility] Address [address] [place] [address] Care Team Providers Care Early Childhood Specialist Name Role Phone Unavailable Primary Care Provider Unavailabl e Encounter Details Date Type Department Care Team (Late st Contact Info) Description 10/11/2023 Lab Requisition [facility] Laboratory Services [address] [place] [address] [place] [id number] [place] [address] Social History Tobacco Use Types Packs/Day Years Used Date Smoking Tobacco: Never Assessed Sex and Gender Information Value Date Recorded Sex Assigned at Not on file Legal Sex Male 9:18 AM DRYWALL FINISHING FOREMAN Gender Identity Not on file Sexual Orientation Not on file documented as of this encounter Plan of Treatment Not on file documented as of this encounter Procedures Procedure Name Priority Date/Time Associated Diagnosis Comments CBC WITH DIFFERENTIAL Routine 10/11/2023 3:30 AM DRYWALL FINISHING FOREMAN TRIGLYCERIDE Routine 10/11/2023 3:30 AM DRYWALL FINISHING FOREMAN MAGNESIUM LEVEL Routine 10/11/2023 3:30 AM DRYWALL FINISHING FOREMAN RENAL FUNCTION PANEL Routine 10/11/2023 3:30 AM DRYWALL FINISHING FOREMAN documented in this encounter Results * (ABNORMAL) TRIGLYCERIDE (10/11/2023 3:30 AM DRYWALL FINISHING FOREMAN) TRIGLYCERIDE 192(H) <150 mg/dL 10/11/2023 6:28 AM DRYWALL FINISHING FOREMAN [facility] Blood 10/11/2023 3:30 AM DRYWALL FINISHING FOREMAN 10/11/2023 5:43 AM DRYWALL FINISHING FOREMAN Narrative [facility] [employer] [facility] - 10/11/2023 6:28 AM DRYWALL FINISHING FOREMAN TRIGLYCERIDES mg/dL Normal < 150 Borderline High 150 - 199 High 200 - 499 Very High >= 500 Based on AHA/NCEP Guidelines. Erik Chairez MD CHEMISTRY ORDERABLES Final Resul t Performing Organization Address City/[facility]/ZIP Co de Phone Number [facility] CLIA# [id number] [place] [address] * MAGNESIUM LEVEL (10/11/2023 3:30 AM DRYWALL FINISHING FOREMAN) MAGNESIUM 2.2 1.6 - 2.6 mg/dL 10/11/2023 6:28 AM [facility] Blood 10/11/2023 3:30 AM DRYWALL FINISHING FOREMAN 10/11/2023 5:43 AM DRYWALL FINISHING FOREMAN Erik Chairez MD CHEMISTRY ORDERABLES Final Resul t Performing Organization Address City/[facility]/ZIP Co de Phone Number [facility] CLIA# [id number] [place] [address] * (ABNORMAL) CBC WITH DIFFERENTIAL (10/11/2023 3:30 AM DRYWALL FINISHING FOREMAN) WBC 8.8 4.5 - 10.5 K/uL 10/11/2023 6:05 AM [facility] [employer] [facility] RBC 3.43(L) 4.50 - 5.40 M/uL 10/11/2023 6:05 AM [facility] [employer] [facility] HEMOGLOBIN 10.5(L) 13.6 - 16.5 g/dL 10/11/2023 6:05 AM [facility] HEMATOCRIT 32.7(L) 40.0 - 48.0 % 10/11/2023 6:05 AM [facility] MCV 95.4 82.0 - 99.0 fL 10/11/2023 6:05 AM [facility] MCH 30.7 27.8 - 34.5 pg 10/11/2023 6:05 AM [facility] MCHC 32.2(L) 32.5 - 35.5 g/dL 10/11/2023 6:05 AM [facility] RDW 18.7(H) 11.5 - 14.5 % 10/11/2023 6:05 AM [facility] PLATELETS 218 160 - 420 K/uL 10/11/2023 6:05 AM [facility] MPV 9.3 8.7 - 12.7 fL 10/11/2023 6:05 AM DRYWALL FINISHING FOREMAN [facility] NEUTROPHILS 67 % 10/11/2023 6:05 AM DRYWALL FINISHING FOREMAN [facility] LYMPHOCYTES 18 % 10/11/2023 6:05 AM DRYWALL FINISHING FOREMAN [facility] MONOCYTES 7 % 10/11/2023 6:05 AM DRYWALL FINISHING FOREMAN [facility] EOSINOPHILS 7 % 10/11/2023 6:05 AM [facility] BASOPHILS 1 % 10/11/2023 6:05 AM DRYWALL FINISHING FOREMAN [facility] NEUTROPHIL ABSOLUTE 5.90 1.90 - 7.00 K/uL 10/11/2023 6:05 AM [facility] LYMPHOCYTE ABSOLUTE 1.60 0.70 - 4.50 K/uL 10/11/2023 6:05 AM [facility] MONOCYTE ABSOLUTE 0.60 0.10 - 1.30 K/uL 10/11/2023 6:05 AM [facility] EOSINOPHIL ABSOLUTE 0.60 0.00 - 0.70 K/uL 10/11/2023 6:05 AM DRYWALL FINISHING FOREMAN [facility] BASOPHILS ABSOLUTE 0.10 0.00 - 0.20 K/uL 10/11/2023 6:05 AM [facility] Blood 10/11/2023 3:30 AM DRYWALL FINISHING FOREMAN 10/11/2023 5:43 AM DRYWALL FINISHING FOREMAN us Erik Chairez MD HEMATOLOGY ORDERABLES Final Resu lt [facility] CLIA# [id number] [address] [place] [address] * (ABNORMAL) RENAL FUNCTION PANEL (10/11/2023 3:30 AM DRYWALL FINISHING FOREMAN) SODIUM 145 136 - 145 mmol/L 10/11/2023 6:28 AM [facility] [employer] [facility] POTASSIUM 4.0 3.4 - 5.1 mmol/L 10/11/2023 6:28 AM [facility] CHLORIDE 106 98 - 107 mmol/L 10/11/2023 6:28 AM [facility] CO2 26 22 - 29 mmol/L 10/11/2023 6:28 AM [facility] CALCIUM 9.3 8.6 - 10.4 mg/dL 10/11/2023 6:28 AM [facility] BUN 38(H) 6 - 20 mg/dL 10/11/2023 6:28 AM [facility] CREATININE 1.38(H) 0.67 - 1.17 mg/dL 10/11/2023 6:28 AM [facility] Comment:The GFR result is no t clinically significant on patients <18 or >70 years of age. GLUCOSE 85 74 - 99 mg/dL 10/11/2023 6:28 AM [facility] ALBUMIN 3.4(L) 3.5 - 5.2 g/dL 10/11/2023 6:28 AM [facility] PHOSPHORUS 3.9 2.5 - 4.5 mg/dL 10/11/2023 6:28 AM [facility] GFR 51 mL/min/1.7 3 sq meter 10/11/2023 6:28 AM [facility] Comment:eGFR calculated with 2020 CKD-EPI equation. Vegetarian diet, extremely high or low muscle mass, and may affect results. Cystatin C with Glomerular Filtration Rate is a suitable alternative for these patients. 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
--- OUTSIDE RECORDS SUMMARY | 2024-11-06 18:40 | XMS_ITS | Encounter Summary ---
Author Organization [facility] Address [address] [place] [address] Care Team Providers Care Bagman/Woman Name Role Phone Demond Stark MD Primary Care Provider [phone] Encounter Details Date Type Department Care Team (Late st Contact Info) Description 10/16/2016 Orders Only [facility] ProviderTaylor MD [address] [place], [place] [id number] Social History Tobacco Use Types Packs/Day Years Used Date Smoking Tobacco: Former Cigarettes Q uit: 09/23/1969 Alcohol Use Standard Drinks/Week Comments Yes 0 (1 standard drink = 0.6 oz pur e alcohol) Sex and Gender Information Value Date Recorded Sex Assigned at Not on file Legal Sex Male 8:49 AM SCHOOL 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
--- OUTSIDE RECORDS SUMMARY | 2024-11-06 18:40 | XMS_ITS | Encounter Summary ---
Author Organization [facility] Address [address] [place] [address] Care Team Providers Care Ceramic Research Engineer Name Role Phone Unavailable Primary Care Provider Unavailabl e Encounter Details Date Type Department Care Team (Late st Contact Info) Description 10/14/2023 Lab Requisition [facility] Laboratory Services [address] [place] [address] [place] [address] [place] [address] Social History Tobacco Use Types Packs/Day Years Used Date Smoking Tobacco: Never Assessed Sex and Gender Information Value Date Recorded Sex Assigned at Not on file Legal Sex Male 9:18 AM DIRECTOR OF RESEARCH CENTER Gender Identity Not on file Sexual Orientation Not on file documented as of this encounter Plan of Treatment Not on file documented as of this encounter Procedures Procedure Name Priority Date/Time Associated Diagnosis Comments CBC WITH DIFFERENTIAL Routine 10/14/2023 2:35 AM DIRECTOR OF RESEARCH CENTER TRIGLYCERIDE Routine 10/14/2023 2:35 AM [employer]OR OF [employer] CENTER PHOSPHORUS Routine 10/14/2023 2:35 AM DIRECTOR OF [employer]EARCH CENTER MAGNESIUM LEVEL Routine 10/14/2023 2:35 AM [employer]OR [employer] CENTER COMPREHENSIVE METABOLIC PANEL Routine 10/14/2023 2:35 AM DIRECTOR OF RESEARCH CENTER documented in this encounter Results * (ABNORMAL) TRIGLYCERIDE (10/14/2023 2:35 AM DIRECTOR OF RESEARCH CENTER) TRIGLYCERIDE 161(H) <150 mg/dL 10/14/2023 8:26 AM DIRECTOR OF RESEARCH CENTER [facility] Blood Collection / Unknown 10/14/2023 2:35 AM DIRECTOR OF RESEARCH CENTER 10/14/2023 7:22 AM DIRECTOR OF RESEARCH CENTER Narrative [facility] - 10/14/2023 8:26 AM DIRECTOR OF RESEARCH CENTER TRIGLYCERIDES mg/dL Normal < 150 Borderline High 150 - 199 High 200 - 499 Very High >= 500 Based on AHA/NCEP Guidelines. us Erik Chairez MD CHEMISTRY ORDERABLES Final Resul t Performing Organization Address City/[facility]/ZIP Co de Phone Number [facility] CLIA# [id number] [place] [address] * PHOSPHORUS (10/14/2023 2:35 AM DIRECTOR OF RESEARCH CENTER) PHOSPHORUS 3.4 2.5 - 4.5 mg/dL 10/14/2023 8:26 AM DIRECTOR OF RESEARCH CENTER [facility] Blood Collection / Unknown 10/14/2023 2:35 AM DIRECTOR OF RESEARCH CENTER 10/14/2023 7:22 AM DIRECTOR OF RESEARCH CENTER us Erik Chairez MD CHEMISTRY ORDERABLES Final Resul t Performing Organization Address City/[facility] Co de Phone Number [facility] [id number] [place] [address] * MAGNESIUM LEVEL (10/14/2023 2:35 AM DIRECTOR OF RESEARCH CENTER) MAGNESIUM 2.5 1.6 - 2.6 mg/dL 10/14/2023 8:26 AM DIRECTOR OF RESEARCH CENTER [facility] [employer] [facility] Blood Collection / Unknown 10/14/2023 2:35 AM DIRECTOR OF RESEARCH CENTER 10/14/2023 7:22 AM DIRECTOR OF RESEARCH CENTER us Erik Chairez MD CHEMISTRY ORDERABLES Final Resul t Performing Organization Address City/[facility]/ZIP Co de Phone Number [facility]# [id number] [place] [address] * (ABNORMAL) CBC WITH DIFFERENTIAL (10/14/2023 2:35 AM DIRECTOR OF RESEARCH CENTER) [facility] WBC 9.2 4.5 - 10.5 K/uL 10/14/2023 8:02 AM [facility] RBC 3.58(L) 4.50 - 5.40 M/uL 10/14/2023 8:02 AM [facility] HEMOGLOBIN 11.0(L) 13.6 - 16.5 g/dL 10/14/2023 8:02 AM [facility] HEMATOCRIT 33.5(L) 40.0 - 48.0 % 10/14/2023 8:02 AM [facility] MCV 93.6 82.0 - 99.0 fL 10/14/2023 8:02 AM [facility] MCH 30.6 27.8 - 34.5 pg 10/14/2023 8:02 AM [facility] [employer] [facility] MCHC 32.7 32.5 - 35.5 g/dL 10/14/2023 8:02 AM [facility] [employer] [facility] RDW 17.7(H) 11.5 - 14.5 % 10/14/2023 8:02 AM [facility] PLATELETS 214 160 - 420 K/uL 10/14/2023 8:02 AM [facility] [employer] [facility] MPV 9.2 8.7 - 12.7 fL 10/14/2023 8:02 AM [facility] [employer] [facility] NEUTROPHILS 58 % 10/14/2023 8:02 AM [facility] LYMPHOCYTES 24 % 10/14/2023 8:02 AM [facility] MONOCYTES 8 % 10/14/2023 8:02 AM DIRECTOR OF [employer]EARCH CENTER [facility] EOSINOPHILS 9 % 10/14/2023 8:02 AM [facility] BASOPHILS 0 % 10/14/2023 8:02 AM [facility] NEUTROPHIL ABSOLUTE 5.40 1.90 - 7.00 K/uL 10/14/2023 8:02 AM [facility] [employer] [facility] LYMPHOCYTE ABSOLUTE 2.20 0.70 - 4.50 K/uL 10/14/2023 8:02 AM [facility] MONOCYTE ABSOLUTE 0.70 0.10 - 1.30 K/uL 10/14/2023 8:02 AM [facility] EOSINOPHIL ABSOLUTE 0.90(H) 0.00 - 0.70 K/uL 10/14/2023 8:02 AM [facility] BASOPHILS ABSOLUTE 0.00 0.00 - 0.20 K/uL 10/14/2023 8:02 AM [facility] Blood Collection / Unknown 10/14/2023 2:35 AM DIRECTOR OF RESEARCH CENTER 10/14/2023 7:22 AM DIRECTOR OF [employer]EARCH CENTER Erik Chairez MD HEMATOLOGY ORDERABLES Final Resu lt [facility] CLIA# [id number] [place] [address] * (ABNORMAL) COMPREHENSIVE METABOLIC PANEL (10/14/2023 2:35 AM DIRECTOR OF RESEARCH CENTER) SODIUM 135(L) 136 - 145 mmol/L 10/14/2023 8:26 AM [facility] POTASSIUM 4.0 3.4 - 5.1 mmol/L 10/14/2023 8:26 AM [facility] CHLORIDE 97(L) 98 - 107 mmol/L 10/14/2023 8:26 AM [facility] CO2 24 22 - 29 mmol/L 10/14/2023 8:26 AM [facility] CALCIUM 9.5 8.6 - 10.4 mg/dL 10/14/2023 8:26 AM [facility] BUN 36(H) 6 - 20 mg/dL 10/14/2023 8:26 AM [facility] CREATININE 1.18(H) 0.67 - 1.17 mg/dL 10/14/2023 8:26 AM [facility] [employer] [facility] Comment:The GFR result is no t clinically significant on patients <18 or >70 years of age. GLUCOSE 84 74 - 99 mg/dL 10/14/2023 8:26 AM [facility] TOTAL PROTEIN 7.4 6.3 - 8.7 g/dL 10/14/2023 8:26 AM [facility] ALBUMIN 3.6 3.5 - 5.2 g/dL 10/14/2023 8:26 AM [facility] BILIRUBIN TOTAL 0.6 0.2 - 1.1 mg/dL 10/14/2023 8:26 AM [facility] ALKALINE PHOSPHATASE 99 40 - 150 U/L 10/14/2023 8:26 AM [facility] AST 22 0 - 41 U/L 10/14/2023 8:26 AM [facility] ALT 16 0 - 41 U/L 10/14/2023 8:26 AM [facility] GFR >60 mL/min/1.7 3 sq meter 10/14/2023 8:26 AM [facility] Comment:eGFR calculated with 2020 CKD-EPI equation. Vegetarian diet, extremely high or low muscle mass, and may affect results. Cystatin C with Glomerular Filtration Rate is a suitable alternative for these patients. 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
--- OUTSIDE RECORDS SUMMARY | 2024-11-06 18:40 | XMS_ITS | Encounter Summary ---
Author Organization [facility] Address [address] [place] [address] Care Team Providers Care Condemnation Engineer Name Role Phone Unavailable Primary Care Provider Unavailabl e Encounter Details Date Type Department Care Team (Late st Contact Info) Description 10/17/2023 Lab Requisition [facility] Laboratory Services [address] [place] [address] [place] [address] [place] [address] Social History Tobacco Use Types Packs/Day Years Used Date Smoking Tobacco: Never Assessed Sex and Gender Information Value Date Recorded Sex Assigned at Not on file Legal Sex Male 9:18 AM WELDER/FABRICATOR Gender Identity Not on file Sexual Orientation Not on file documented as of this encounter Plan of Treatment Not on file documented as of this encounter Procedures Procedure Name Priority Date/Time Associated Diagnosis Comments CBC WITH DIFFERENTIAL Routine 10/17/2023 2:15 AM WELDER/FABRICATOR MAGNESIUM LEVEL Routine 10/17/2023 2:15 AM WELDER/FABRICATOR RENAL FUNCTION PANEL Routine 10/17/2023 2:15 AM WELDER/FABRICATOR documented in this encounter Results * MAGNESIUM LEVEL (10/17/2023 2:15 AM WELDER/FABRICATOR) MAGNESIUM 2.3 1.6 - 2.6 mg/dL 10/17/2023 9:56 AM WELDER/FABRICATOR [facility] Blood Collection / Unknown 10/17/2023 2:15 AM WELDER/FABRICATOR 10/17/2023 9:00 AM WELDER/FABRICATOR Erik Chairez MD CHEMISTRY ORDERABLES Final Resul t [facility] CLIA# [id number] [address] [place] [address] * (ABNORMAL) CBC WITH DIFFERENTIAL (10/17/2023 2:15 AM WELDER/FABRICATOR) WBC 6.7 4.5 - 10.5 K/uL 10/17/2023 9:34 AM WELDER/FABRICATOR [facility] RBC 3.73(L) 4.50 - 5.40 M/uL 10/17/2023 9:34 AM WELDER/FABRICATOR [facility] HEMOGLOBIN 11.1(L) 13.6 - 16.5 g/dL 10/17/2023 9:34 AM WELDER/FABRICATOR [facility] HEMATOCRIT 35.0(L) 40.0 - 48.0 % 10/17/2023 9:34 AM WELDER/FABRICATOR [facility] MCV 93.8 82.0 - 99.0 fL 10/17/2023 9:34 AM WELDER/FABRICATOR [facility] MCH 29.8 27.8 - 34.5 pg 10/17/2023 9:34 AM WELDER/FABRICATOR [facility] MCHC 31.8(L) 32.5 - 35.5 g/dL 10/17/2023 9:34 AM WELDER/FABRICATOR [facility] RDW 17.4(H) 11.5 - 14.5 % 10/17/2023 9:34 AM WELDER/FABRICATOR [facility] PLATELETS 214 160 - 420 K/uL 10/17/2023 9:34 AM WELDER/FABRICATOR [facility] MPV 9.5 8.7 - 12.7 fL 10/17/2023 9:34 AM WELDER/FABRICATOR [facility] NEUTROPHILS 50 % 10/17/2023 9:34 AM WELDER/FABRICATOR [facility] LYMPHOCYTES 28 % 10/17/2023 9:34 AM WELDER/FABRICATOR [facility] MONOCYTES 8 % 10/17/2023 9:34 AM WELDER/FABRICATOR [facility] EOSINOPHILS 13 % 10/17/2023 9:34 AM WELDER/FABRICATOR [facility] BASOPHILS 0 % 10/17/2023 9:34 AM WELDER/FABRICATOR [facility] NEUTROPHIL ABSOLUTE 3.40 1.90 - 7.00 K/uL 10/17/2023 9:34 AM WELDER/FABRICATOR [facility] LYMPHOCYTE ABSOLUTE 1.90 0.70 - 4.50 K/uL 10/17/2023 9:34 AM WELDER/FABRICATOR [facility] MONOCYTE ABSOLUTE 0.50 0.10 - 1.30 K/uL 10/17/2023 9:34 AM WELDER/FABRICATOR [facility] EOSINOPHIL ABSOLUTE 0.90(H) 0.00 - 0.70 K/uL 10/17/2023 9:34 AM WELDER/FABRICATOR [facility] BASOPHILS ABSOLUTE 0.00 0.00 - 0.20 K/uL 10/17/2023 9:34 AM WELDER/FABRICATOR [facility] Blood Collection / Unknown 10/17/2023 2:15 AM WELDER/FABRICATOR 10/17/2023 9:00 AM WELDER/FABRICATOR us Erik Chairez MD HEMATOLOGY ORDERABLES Final Resu lt [facility] CLIA# [id number] [place] [address] * (ABNORMAL) RENAL FUNCTION PANEL (10/17/2023 2:15 AM WELDER/FABRICATOR) SODIUM 137 136 - 145 mmol/L 10/17/2023 9:56 AM [facility] [employer] [facility] POTASSIUM 4.0 3.4 - 5.1 mmol/L 10/17/2023 9:56 AM [facility] LABORATORY [facility] CHLORIDE 99 98 - 107 mmol/L 10/17/2023 9:56 AM [facility] [employer] [facility] CO2 23 22 - 29 mmol/L 10/17/2023 9:56 AM [facility] [employer] [facility] CALCIUM 9.2 8.6 - 10.4 mg/dL 10/17/2023 9:56 AM [facility] [employer] [facility] BUN 42(H) 6 - 20 mg/dL 10/17/2023 9:56 AM [facility] CREATININE 1.00 0.67 - 1.17 mg/dL 10/17/2023 9:56 AM [facility] Comment:The GFR result is no t clinically significant on patients <18 or >70 years of age. GLUCOSE 72(L) 74 - 99 mg/dL 10/17/2023 9:56 AM [facility] ALBUMIN 3.2(L) 3.5 - 5.2 g/dL 10/17/2023 9:56 AM [facility] PHOSPHORUS 2.9 2.5 - 4.5 mg/dL 10/17/2023 9:56 AM [facility] GFR >60 mL/min/1.7 3 sq meter 10/17/2023 9:56 AM [facility] Comment:eGFR calculated with 2020 CKD-EPI equation. Vegetarian diet, extremely high or low muscle mass, and may affect results. Cystatin C with Glomerular Filtration Rate is a suitable alternative for these patients. ANION GAP 15 8 - 16 mmol/L 10/17/2023 9:56 AM [facility] Blood Collection / Unknown 10/17/2023 2:15 AM WELDER/FABRICATOR 10/17/2023 9:00 AM WELDER/FABRICATOR Erik Chairez MD CHEMISTRY ORDERABLES Final Resul t 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
--- OUTSIDE RECORDS SUMMARY | 2024-11-06 18:41 | XMS_ITS | Encounter Summary ---
Author Organization [facility] Address [address] [place] [address] Care Team Providers Care Application Integration Specialist Name Role Phone Unavailable Primary Care Provider Unavailabl e Encounter Details Date Type Department Care Team (Late st Contact Info) Description 11/01/2023 Lab Requisition [facility] Laboratory Services [address] [place] [address] [place] [address] [place] [address] Social History Tobacco Use Types Packs/Day Years Used Date Smoking Tobacco: Never Assessed Sex and Gender Information Value Date Recorded Sex Assigned at Not on file Legal Sex Male 9:18 AM SENIOR CHEMIST Gender Identity Not on file Sexual Orientation Not on file documented as of this encounter Plan of Treatment Not on file documented as of this encounter Procedures Procedure Name Priority Date/Time Associated Diagnosis Comments CBC WITH DIFFERENTIAL Routine 11/01/2023 4:20 AM SENIOR CHEMIST BASIC METABOLIC PANEL Routine 11/01/2023 4:20 AM SENIOR CHEMIST documented in this encounter Results * (ABNORMAL) CBC WITH DIFFERENTIAL (11/01/2023 4:20 AM SENIOR CHEMIST) WBC 8.5 4.5 - 10.5 K/uL 11/01/2023 8:48 AM SENIOR CHEMIST [facility] LABORATORY SERVICES - [facility] RBC 3.87(L) 4.50 - 5.40 M/uL 11/01/2023 8:48 AM SENIOR CHEMIST [facility] LABORATORY [facility] HEMOGLOBIN 11.2(L) 13.6 - 16.5 g/dL 11/01/2023 8:48 AM SENIOR CHEMIST [facility] LABORATORY [facility] HEMATOCRIT 34.9(L) 40.0 - 48.0 % 11/01/2023 8:48 AM SENIOR CHEMIST [facility] LABORATORY SERVICES [facility] MCV 90.3 82.0 - 99.0 fL 11/01/2023 8:48 AM SENIOR CHEMIST [facility] LABORATORY SERVICES - [facility] MCH 29.0 27.8 - 34.5 pg 11/01/2023 8:48 AM SENIOR CHEMIST [facility] LABORATORY SERVICES [facility] MCHC 32.1(L) 32.5 - 35.5 g/dL 11/01/2023 8:48 AM SENIOR CHEMIST [facility] LABORATORY SERVICES [facility] RDW 17.0(H) 11.5 - 14.5 % 11/01/2023 8:48 AM SENIOR CHEMIST [facility] LABORATORY SERVICES [facility] PLATELETS 246 160 - 420 K/uL 11/01/2023 8:48 AM SENIOR CHEMIST [facility] MPV 9.7 8.7 - 12.7 fL 11/01/2023 8:48 AM SENIOR CHEMIST [facility] SERVICES [facility] NEUTROPHILS 53 % 11/01/2023 8:48 AM SENIOR CHEMIST [facility] LYMPHOCYTES 29 % 11/01/2023 8:48 AM SENIOR CHEMIST [facility] LABORATORY SERVICES [facility] MONOCYTES 7 % 11/01/2023 8:48 AM SENIOR CHEMIST [facility] LABORATORY SERVICES [facility] EOSINOPHILS 12 % 11/01/2023 8:48 AM SENIOR CHEMIST [facility] BASOPHILS 1 % 11/01/2023 8:48 AM SENIOR CHEMIST [facility] LABORATORY SERVICES [facility] NEUTROPHIL ABSOLUTE 4.50 1.90 - 7.00 K/uL 11/01/2023 8:48 AM SENIOR CHEMIST [facility] LABORATORY SERVICES [facility] LYMPHOCYTE ABSOLUTE 2.40 0.70 - 4.50 K/uL 11/01/2023 8:48 AM SENIOR CHEMIST [facility] LAB[facility] SERVICES [facility] MONOCYTE ABSOLUTE 0.60 0.10 - 1.30 K/uL 11/01/2023 8:48 AM SENIOR CHEMIST [facility] LABORATORY SERVICES [facility] EOSINOPHIL ABSOLUTE 1.00(H) 0.00 - 0.70 K/uL 11/01/2023 8:48 AM SENIOR CHEMIST [facility] LABORATORY SERVICES [facility] BASOPHILS ABSOLUTE 0.00 0.00 - 0.20 K/uL 11/01/2023 8:48 AM [facility] Blood Collection / Unknown 11/01/2023 4:20 AM SENIOR CHEMIST 11/01/2023 7:57 AM SENIOR CHEMIST Erik Chairez MD HEMATOLOGY ORDERABLES Final Resu lt [facility] CLIA# [id number] [address] [place] [address] * (ABNORMAL) BASIC METABOLIC PANEL (11/01/2023 4:20 AM SENIOR CHEMIST) SODIUM 139 136 - 145 mmol/L 11/01/2023 9:12 AM [facility] POTASSIUM 3.7 3.4 - 5.1 mmol/L 11/01/2023 9:12 AM [facility] CHLORIDE 100 98 - 107 mmol/L 11/01/2023 9:12 AM [facility] CO2 27 22 - 29 mmol/L 11/01/2023 9:12 AM [facility] CALCIUM 9.8 8.6 - 10.4 mg/dL 11/01/2023 9:12 AM [facility] BUN 41(H) 6 - 20 mg/dL 11/01/2023 9:12 AM [facility] CREATININE 0.93 0.67 - 1.17 mg/dL 11/01/2023 9:12 AM [facility] Comment:The GFR result is no t clinically significant on patients <18 or >70 years of age. GLUCOSE 109(H) 74 - 99 mg/dL 11/01/2023 9:12 AM [facility] GFR >60 mL/min/1.7 3 sq meter 11/01/2023 9:12 AM [facility] Comment:eGFR calculated with 2020 CKD-EPI equation. Vegetarian diet, extremely high or low muscle mass, and may affect results. Cystatin C with Glomerular Filtration Rate is a suitable alternative for these patients. ANION GAP 12 8 - 16 mmol/L 11/01/2023 9:12 AM SENIOR CHEMIST [facility] LABORATORY SERVICES [facility] Blood Collection / Unknown 11/01/2023 4:20 AM SENIOR CHEMIST 11/01/2023 7:57 AM SENIOR CHEMIST Erik Chairez MD CHEMISTRY ORDERABLES Final Resul t [facility]ORATORY SERVICES 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
--- OUTSIDE RECORDS SUMMARY | 2024-11-06 18:41 | XMS_ITS | Encounter Summary ---
Author Organization [facility] Address [address] [place] [address] Care Team Providers Care Blow Up Operator Name Role Phone Unavailable Primary Care Provider Unavailabl e Encounter Details Date Type Department Care Team (Late st Contact Info) Description 11/05/2023 Lab Requisition [facility] Laboratory Services [address] [place] [address] [place] [address] [place] [address] Social History Tobacco Use Types Packs/Day Years Used Date Smoking Tobacco: Never Assessed Sex and Gender Information Value Date Recorded Sex Assigned at Not on file Legal Sex Male 9:18 AM TOP SCREW Gender Identity Not on file Sexual Orientation Not on file documented as of this encounter Plan of Treatment Not on file documented as of this encounter Procedures Procedure Name Priority Date/Time Associated Diagnosis Comments DIFFERENTIAL, MANUAL Routine 11/05/2023 3:30 AM TOP SCREW CBC WITH DIFFERENTIAL Routine 11/05/2023 3:30 AM TOP SCREW documented in this encounter Results * MANUAL DIFFERENTIAL (11/05/2023 3:30 AM TOP SCREW) PLATELET EST. Consistent w Count 11/05/2023 6:05 AM TOP SCREW [facility] RBC MORPHOLOGY Normal 11/05/2023 6:05 AM TOP SCREW [facility] Blood Collection / Unknown 11/05/2023 3:30 AM TOP SCREW 11/05/2023 5:05 AM TOP SCREW Erik Chairez MD HEMATOLOGY ORDERABLES COM Final Result [facility] CLIA# [id number] [address] [place] [address] * (ABNORMAL) CBC WITH DIFFERENTIAL (11/05/2023 3:30 AM TOP SCREW) [facility] WBC 7.5 4.5 - 10.5 K/uL 11/05/2023 6:05 AM [facility] LABORATORY [facility] RBC 3.81(L) 4.50 - 5.40 M/uL 11/05/2023 6:05 AM [facility] HEMOGLOBIN 11.9(L) 13.6 - 16.5 g/dL 11/05/2023 6:05 AM [facility] HEMATOCRIT 35.6(L) 40.0 - 48.0 % 11/05/2023 6:05 AM [facility] [employer] [facility] MCV 93.5 82.0 - 99.0 fL 11/05/2023 6:05 AM [facility] [employer] [facility] MCH 31.2 27.8 - 34.5 pg 11/05/2023 6:05 AM [facility] [employer] [facility] MCHC 33.3 32.5 - 35.5 g/dL 11/05/2023 6:05 AM [facility] [employer] [facility] RDW 17.0(H) 11.5 - 14.5 % 11/05/2023 6:05 AM [facility] [employer] [facility] PLATELETS 243 160 - 420 K/uL 11/05/2023 6:05 AM [facility] [employer] [facility] MPV 9.4 8.7 - 12.7 fL 11/05/2023 6:05 AM [facility] LAB[facility]AT[facility] NEUTROPHILS 63 % 11/05/2023 6:05 AM TOP SCREW [facility] [employer] [facility] LYMPHOCYTES 23 % 11/05/2023 6:05 AM TOP SCREW [facility] LABORATORY [facility] MONOCYTES 5 % 11/05/2023 6:05 AM [facility] EOSINOPHILS 9 % 11/05/2023 6:05 AM TOP SCREW [facility] LABORATORY [facility] BASOPHILS 1 % 11/05/2023 6:05 AM TOP SCREW [facility] LABORATORY [facility] NEUTROPHIL ABSOLUTE 4.70 1.90 - 7.00 K/uL 11/05/2023 6:05 AM TOP SCREW [facility] LABORATORY [facility] LYMPHOCYTE ABSOLUTE 1.70 0.70 - 4.50 K/uL 11/05/2023 6:05 AM TOP SCREW [facility] LABORATORY [facility] MONOCYTE ABSOLUTE 0.40 0.10 - 1.30 K/uL 11/05/2023 6:05 AM TOP SCREW [facility] LABORATORY [facility] EOSINOPHIL ABSOLUTE 0.70 0.00 - 0.70 K/uL 11/05/2023 6:05 AM TOP SCREW [facility] LABORATORY SERVICES - [facility] BASOPHILS ABSOLUTE 0.00 0.00 - 0.20 K/uL 11/05/2023 6:05 AM TOP SCREW [facility] LABORATORY [facility] Blood Collection / Unknown 11/05/2023 3:30 AM TOP SCREW 11/05/2023 5:05 AM TOP SCREW Erik Chairez MD HEMATOLOGY ORDERABLES Final Resu lt [facility] CLIA# [id number] [address] [place] [address] documented in this encounter Visit Diagnoses Not on filedocumented in this encounter Additional Health Concerns Infection Onset Date Last Indicated Resolved Time 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
--- OUTSIDE RECORDS SUMMARY | 2024-11-06 18:41 | XMS_ITS | Encounter Summary ---
Author Organization [facility] Address [address] [place] [address] Care Team Providers Care Treating Plant Operator Name Role Phone Demond Stark MD Primary Care Provider [phone] Encounter Details Date Type Department Care Team (Late Contact Info) Description 06/28/2023 Lab Requisition [facility] Lab [address] [place] [phone] Jaxon Anaya MD [address] [place] [address] Social History Tobacco Use Types Packs/Day Years [...] Visit [facility] - Neurology [address] [place] [phone] Alberto Jeffers MD [address] [facility] [place] [phone] documented as of this encounter Procedures Procedure Name Priority Date/Time Associated Diagnosis Comments DERMATOPATHOLOGY Routine 06/26/2023 12:0 0 AM CDT documented in this encounter Results * DERMATOPATHOLOGY (06/26/2023 12:00 AM CDT) Case Report Dermatopathology Report Case: [id number] Authorizing Provider: Jaxon Anaya MD Collected: 06/26/2023 12:00 AM Ordering Location: [facility] DermPath Lab Received: 06/28/2023 09:48 AM Pathologist: [...] back.The specimen consists of an ellipse measuring [id number] mm and is oriented with the suture/notch [...] characteristic determined by the Dermatopathology Laboratory at [facility], directed by Dr. Georgina Young. These tests need not be, and therefore are not, approved by the [place] Food and Drug Administration. The tests are used for clinical purposes. 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
--- OUTSIDE RECORDS SUMMARY | 2024-11-06 18:41 | XMS_ITS | Referral Summary ---
Author Organization [facility] Medical Office Building B Address [address] [place] [address] Care Team Providers Care Community Health Planning Director Name Role Phone Demond Stark MD Primary Care Provider Encounters Date Type Department Care Team Description 11/05/2024 Telephone [facility] Cardiology [address] [facility] [address] [place] [phone] Cedric Dumont MD cardiac clearance; samples 10/05/2024 10:45 AM MALTED MILK MIXER Office Visit [facility] ENT Specialists - [address] [place] [phone] Laura Oakes, DO Dysfunction of right eustachian tube (Primary Dx) 09/29/2024 Telephone [facility] ENT Specialists - [address] [place] [phone] Mery Mauricio MA 09/22/2024 11:00 AM MALTED MILK MIXER - 09/22/2024 11:40 AM MALTED MILK MIXER Surgery [facility] Operating Room [address] [place] [address] Laura Oakes, DO Right myringotomy with T-tube placement [02475 (CPT )] 09/22/2024 11:21 AM MALTED MILK MIXER Anesthesia Event [facility] Operating Room [address] [place] [address] Katherine Barber MD Reynolds, Ethan Emerson, MD 09/22/2024 9:24 AM MALTED MILK MIXER - 09/22/2024 1:20 PM MALTED MILK MIXER Hospital Encounter [facility] Operating Room [address] [place] [address] Laura Oakes, Dysfunction of right eustachian tube [H69.91] (Primary Dx) Discharge Disposition: Discharge to home or self care 09/07/2024 11:15 AM MALTED MILK MIXER Ancillary Procedure [facility] Cardiology [address] [place] [address] [address] [place] [address] Coronary arteriosclerosis in campo artery; Pre-operative cardiovascular examination 08/31/2024 11:30 AM MALTED MILK MIXER Procedure visit [facility] E[facility] Specialists at [address] [place] [address] Renetta Barrientos Au.D. Mixed conductive and sensorineural hearing loss of right ear with restricted hearing of left ear (Primary Dx); Dysfunction of right eustachian tube 08/31/2024 11:15 AM MALTED MILK MIXER Office Visit [facility] ENT Specialists - [address] [place] [address] Laura Oakes, Dysfunction of right eustachian tube (Primary Dx); Dizziness 08/19/2024 1:45 PM MALTED MILK MIXER Office Visit [facility] Cardiology [address] [place] [address] [address] [place] [address] Cedric Dumont MD Coronary arteriosclerosis in campo artery (Primary Dx); Essential hypertension; Persistent atrial [...] Simvastatin Muscle pain Medium Reaction: Muscular Pain, Selfpzo-Kic-Dek Reductase Inhibitors Muscle pain,Other (See comments) Medium 10/03/2015 Pt reports leg weakness/heavine ss when taking zocor. Medications levothyroxine (SYNTHROID) 112 mcg tablet Take 1 tablet (112 mcg total) by mouth hot top liner before breakfast Active aspirin 81 mg tablet [...] 08/31/2024 Assessment & Plan (10/05/2024 10:54 AM MALTED MILK MIXER): Avoid ear cleaning techniques Avoid water to ears Follow up in 9 months for right ear tube check, earlier with ear drainage Assessment & Plan (08/31/2024 11:40 AM MALTED MILK MIXER): Right myringotomy with T-tube placement Risks and [...] 07/09/2024 Assessment & Plan (08/31/2024 11:39 AM MALTED MILK MIXER): Right myringotomy with T-tube placement Risks and [...] 08/07/2017 Assessment & Plan (08/07/2017 6:01 PM MALTED MILK MIXER): Has had elevated LFTs and a fatty liver. Bradycardia 08/07/2017 Assessment & Plan (08/07/2017 5:58 PM MALTED MILK MIXER): Asymptomatic bradycardia, on low-dose metoprolol which may eventually need to be reduced or discontinued. Traumatic subdural hematoma of neuraxis 10/15/19 17 Overview (12/28/2016): Traumatic subdural hematoma without loss of consciousness, sequela Statin intolerance 10/15/2016 Overview (12/28/2016): Statin intolerance Essential hypertension 07/20/2013 Overview (12/28/2016): Hypertension Assessment & Plan (08/07/2017 5:57 PM MALTED MILK MIXER): Hypertension is not under good control; reviewing [...] HYPERLIPIDEMIA Assessment & Plan (08/07/2017 6:03 PM MALTED MILK MIXER): Has refued further attempts at statin therapy. History of coronary artery bypass surgery 2009 Overview (12/26/2016): AORTOCORONARY BYPASS Coronary arteriosclerosis in campo artery 12/20 Overview (08/07/2017): CRNRY ATHRSCL NATVE VSSL 2009: Non STEMI and CABG x3 (HOBSON to the LAD, sequential RA to OM and D1) Assessment & Plan (08/07/2017 6:00 PM MALTED MILK MIXER): 2009: Non STEMI and CABG x3 (HOBSON [...] 03/04/2018 Assessment & Plan (08/07/2017 5:58 PM MALTED MILK MIXER): Patient is going to have knee surgery soon and needs preoperative clearance. Coronary artery disease appears stable. Low risk for cardiac event with proposed surgery. Acute subendocardial infarction ([facility]/HCC) 12/20/2009 03/25/2023 Overview (12/28/2016): SUBENDO INFARCT, [...] on file Legal Sex Male 8:49 AM MALTED MILK MIXER Gender Identity Not on file Sexual Orientation Not on file Last Filed Vital Signs Vital Sign Reading Time Taken Comments Blood Pressure 160/88 09/22/2024 1:04 PM MALTED MILK MIXER Pulse 83 09/22/2024 1:04 PM MALTED MILK MIXER Temperature 36.3 C (97.4 F) 09/22/2024 1:04 PM MALTED MILK MIXER Respiratory Rate 18 09/22/2024 1:04 PM MALTED MILK MIXER Oxygen Saturation 97% 09/22/2024 1:04 PM MALTED MILK MIXER Inhaled Oxygen Concentration - - Weight 97.5 kg (214 lb 15.2 oz) 09/22/2024 9:41 AM MALTED MILK MIXER Height 182.9 cm (6') 09/22/2024 9:41 AM MALTED MILK MIXER Body Mass Index 29.15 09/22/2024 9:41 AM MALTED MILK MIXER Plan of Treatment Not on file Medical Devices Implanted Type Area Toys Inspector Device Identifier Shelf Expiration Date Model / Serial / Lot [employer] 1.32mm 4.8mm Modify Ear T Tube Ventilation Ultrasil Sterile Blue [id number] - [id number] Implanted:Qty: 1 on 09/22/2024 by Laura Oakes DO at [facility] Right: Ear [employer] 07/13/2034 [id number] / / [id number] Procedures Procedure Name Priority Date/Time Associated Diagnosis Comments AZ AN ELECTIVE SUPRAGLOTTIC AIRWAY Routine 09/22/2024 11:28 AM MALTED MILK MIXER AZ TYMPANOSTOMY GENERAL ANESTHESIA 09/22/2024 11:11 AM MALTED MILK MIXER Dysfunction of right eustachian tube ECG 12-LEAD STAT 09/22/2024 9:59 AM MALTED MILK MIXER NM MPI SPECT (REST AND/OR STRESS) MULTIPLE STUDIES Schedule Routine, Read Routine (OP Routine) 09/07/2024 12:25 PM MALTED MILK MIXER Coronary arteriosclerosis in campo artery Pre-operative cardiovascular examination AUDIOGRAM Routine 08/31/2024 11:30 AM MALTED MILK MIXER Mixed conductive and sensorineural hearing loss of right ear with restricted hearing of left ear from Last 3 Months Results * AZ AN ELECTIVE SUPRAGLOTTIC AIRWAY (09/22/2024 11:28 AM MALTED MILK MIXER) Narrative Gwendolyn Nicholas CRNA - 09/22/2024 11:28 AM MALTED MILK MIXER Gwendolyn Nicholas CRNA 09/22/2024 11:29 AM Airway Patient location: OR Urgency: elective Indications for airway management: anesthesia Difficult airway: no Staff: Placed by: SOFTWARE ARCHITECT: Gwendolyn Nicholas CRNA Emergent airway documentation: Risks [...] * ECG 12 lead (09/22/2024 9:59 AM MALTED MILK MIXER) 09/22/2024 9:59 AM MALTED MILK MIXER Narrative [facility] - 09/22/2024 12:03 PM MALTED MILK MIXER Vent Rate: 80 bpm RR Interval: 746 msec [place] Interval: 0 msec QRS Duration: 94 msec QT Interval: 399 msec QTC Interval: 435 msec P-R-T [place]: 31698 - 7 - -16 degrees IMPRESSION: ATRIAL FIBRILLATION No prior EKG for comparison. Electronically Signed By: Dr Wali Espinal us Leland Valle MD ECG ORDERABLES Final Result [facility] * NM MPI SPECT (Rest and/or Stress) Multiple Studies (09/07/2024 12:25 PM MALTED MILK MIXER) Anatomical Region Laterality Modality Body N/A Nuclear Medicine 09/07/2024 9:51 AM MALTED MILK MIXER Narrative 09/08/2024 12:56 PM MALTED MILK MIXER [facility] Cardiology [address] [facility] [address], [place] [address] [address] [facility] [address], [place] [address] P:[phone] P:[phone] MPI Imaging Report Patient Name: LINCOLN KIMBALL L : 1940 Study Date: 09/07/2024 9:51:42 AM Gender: M Tech: KURT RUBIO Location: [facility] Provider: CEDRIC DUMONT Height(Cm): 185.4 BSA: [...] Former Smoker, I25.10 Atherosclerotic heart disease of campo coronary artery without angina pectoris, and Z01.810 [...] mid inferolateral daugherty, consistent with prior inferior MT. Left ventricular ejection fraction is 43 %. There is mild LV dysfunction. There is hypokinesis in the basal inferior segment and mid inferior segment. Electronically Signed By: Cedric Dumont MD 09/07/2024 12:59:59 PM MALTED MILK MIXER Electronically Signed By: Do Meier DO, [facility], [facility], [facility] 09/08/2024 12:55:38 PM MALTED MILK MIXER Procedure Note Do Meier DO - 09/08/2024 [facility] Cardiology [address] [facility] [address] [id number] [address] [facility] [address] [place] [address] P:[phone] P:[phone] MPI Imaging Report Patient Name: LINCOLN KIMBALL L : 1940 Study Date: 09/07/2024 9:51:42 AM Gender: M Tech: [facility] Location: [facility] Provider: CEDRIC DUMONT Height(Cm): 185.4 BSA: [...] Cholesterol, Former Smoker, I25.10 Atheroscleroticheart disease of campo coronary artery without angina pectoris, and Z01.810 [...] to mid inferolateral daugherty, consistentwith prior inferior MT. Left ventricular ejection fraction is 43 %. There is mild LVdysfunction. There is hypokinesis in the basal inferior segment and mid inferiorsegment. Electronically Signed By: Cedric Dumont MD 09/07/2024 12:59:59 PM MALTED MILK MIXER Electronically Signed By: Do Meier, , FACC, FASE, FASNC 09/08/2024 12:55:38 PM MALTED MILK MIXER us Cedric Dumont MD IMG NM PROCEDURES Final R esult * AUDIOGRAM (08/31/2024 11:30 AM MALTED MILK MIXER) Narrative Renetta Barrientos Au.D. - 08/31/2024 11:30 AM MALTED MILK MIXER Renetta Barrientos Au.D. 08/31/2024 1:35 PM Audiogram Performed by: Renetta Barrientos Au.D. Authorized by: Laura Oakes DO us Laura Oakes DO AUDIOLOGY SERVICES ORDERABLE S Final Result from Last 3 Months Insurance MEDICARE MEDICARE [facility] MEDICARE SUPPLEMENT Care Teams Community Health Planning Director Relationship Specialty Start Date End Date Demond Stark MD PCP - General 07/23/11
--- OUTSIDE RECORDS SUMMARY | 2024-11-06 18:41 | XMS_ITS | Encounter Summary ---
Author Organization [facility] Address [address] [place] [address] Care Team Providers Care Financial Controller Name Role Phone Unavailable Primary Care Provider Unavailabl e Encounter Details Date Type Department Care Team (Late st Contact Info) Description 11/04/2023 Lab Requisition [facility] Laboratory Services [address] [place] [address] [place] [address] [place] [address] Social History Tobacco Use Types Packs/Day Years Used Date Smoking Tobacco: Never Assessed Sex and Gender Information Value Date Recorded Sex Assigned at Not on file Legal Sex Male 9:18 AM TABLE INSPECTOR Gender Identity Not on file Sexual Orientation Not on file documented as of this encounter Plan of Treatment Not on file documented as of this encounter Procedures Procedure Name Priority Date/Time Associated Diagnosis Comments CBC WITH DIFFERENTIAL Routine 11/04/2023 3:45 AM TABLE INSPECTOR BASIC METABOLIC PANEL Routine 11/04/2023 3:45 AM TABLE INSPECTOR documented in this encounter Results * (ABNORMAL) CBC WITH DIFFERENTIAL (11/04/2023 3:45 AM TABLE INSPECTOR) WBC 12.2(H) 4.5 - 10.5 K/uL 11/04/2023 8:52 AM TABLE INSPECTOR [facility] SERVICES - [facility] RBC 4.11(L) 4.50 - 5.40 M/uL 11/04/2023 8:52 AM TABLE INSPECTOR [facility] - [facility] HEMOGLOBIN 11.7(L) 13.6 - 16.5 g/dL 11/04/2023 8:52 AM TABLE INSPECTOR [facility] HEMATOCRIT 37.9(L) 40.0 - 48.0 % 11/04/2023 8:52 AM TABLE INSPECTOR [facility] LABOR[facility] SERVICES [facility] MCV 92.2 82.0 - 99.0 fL 11/04/2023 8:52 AM TABLE INSPECTOR [facility] MCH 28.5 27.8 - 34.5 pg 11/04/2023 8:52 AM TABLE INSPECTOR [facility] SERVICES [facility] MCHC 30.9(L) 32.5 - 35.5 g/dL 11/04/2023 8:52 AM TABLE INSPECTOR [facility] SERVICES [facility] RDW 17.0(H) 11.5 - 14.5 % 11/04/2023 8:52 AM TABLE INSPECTOR [facility] SERVICES [facility] PLATELETS 272 160 - 420 K/uL 11/04/2023 8:52 AM TABLE INSPECTOR [facility] SERVICES [facility] MPV 10.0 8.7 - 12.7 fL 11/04/2023 8:52 AM TABLE INSPECTOR [facility] SERVICES [facility] NEUTROPHILS 45 % 11/04/2023 8:52 AM TABLE INSPECTOR [facility] SERVICES [facility] LYMPHOCYTES 38 % 11/04/2023 8:52 AM TABLE INSPECTOR [facility] SERVICES [facility] MONOCYTES 7 % 11/04/2023 8:52 AM TABLE INSPECTOR [facility] SERVICES [facility] EOSINOPHILS 11 % 11/04/2023 8:52 AM TABLE INSPECTOR [facility] SERVICES [facility] BASOPHILS 1 % 11/04/2023 8:52 AM TABLE INSPECTOR [facility] NEUTROPHIL ABSOLUTE 5.50 1.90 - 7.00 K/uL 11/04/2023 8:52 AM TABLE INSPECTOR [facility] SERVICES [facility] LYMPHOCYTE ABSOLUTE 4.60(H) 0.70 - 4.50 K/uL 11/04/2023 8:52 AM TABLE INSPECTOR [facility] SERVICES [facility] MONOCYTE ABSOLUTE 0.80 0.10 - 1.30 K/uL 11/04/2023 8:52 AM TABLE INSPECTOR [facility] SERVICES [facility] EOSINOPHIL ABSOLUTE 1.30(H) 0.00 - 0.70 K/uL 11/04/2023 8:52 AM TABLE INSPECTOR [facility] SERVICES [facility] BASOPHILS ABSOLUTE 0.10 0.00 - 0.20 K/uL 11/04/2023 8:52 AM [facility] Private Company [facility] Blood 11/04/2023 3:45 AM TABLE INSPECTOR 11/04/2023 8:24 AM TABLE INSPECTOR Erik Chairez MD HEMATOLOGY ORDERABLES Final Resu lt [facility] CLIA# [id number] [place] [address] * (ABNORMAL) BASIC METABOLIC PANEL (11/04/2023 3:45 AM TABLE INSPECTOR) SODIUM 144 136 - 145 mmol/L 11/04/2023 9:49 AM [facility] POTASSIUM 5.3(H) 3.4 - 5.1 mmol/L 11/04/2023 9:49 AM [facility] CHLORIDE 103 98 - 107 mmol/L 11/04/2023 9:49 AM [facility] CO2 26 22 - 29 mmol/L 11/04/2023 9:49 AM [facility] CALCIUM 10.7(H) 8.6 - 10.4 mg/dL 11/04/2023 9:49 AM [facility] BUN 38(H) 6 - 20 mg/dL 11/04/2023 9:49 AM [facility] CREATININE 0.95 0.67 - 1.17 mg/dL 11/04/2023 9:49 AM [facility] Comment:The GFR result is no t clinically significant on patients <18 or >70 years of age. GLUCOSE 114(H) 74 - 99 mg/dL 11/04/2023 9:49 AM [facility] GFR >60 mL/min/1.7 3 sq meter 11/04/2023 9:49 AM [facility] Comment:eGFR calculated with 2020 CKD-EPI equation. Vegetarian diet, extremely high or low muscle mass, and may affect results. Cystatin C with Glomerular Filtration Rate is a suitable alternative for these patients. 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
--- OUTSIDE RECORDS SUMMARY | 2024-11-06 18:41 | XMS_ITS | Encounter Summary ---
Author Organization [facility] Address [address] [place] [address] Care Team Providers Care Process Coach Name Role Phone Unavailable Primary Care Provider Unavailabl e Encounter Details Date Type Department Care Team (Late st Contact Info) Description 10/26/2023 Lab Requisition [facility] Laboratory Services [address] [place] [address] [place] [address] [place] [address] Social History Tobacco Use Types Packs/Day Years Used Date Smoking Tobacco: Never Assessed Sex and Gender Information Value Date Recorded Sex Assigned at Not on file Legal Sex Male 9:18 AM EVENT AV OPERATOR Gender Identity Not on file Sexual Orientation Not on file documented as of this encounter Plan of Treatment Not on file documented as of this encounter Procedures Procedure Name Priority Date/Time Associated Diagnosis Comments CBC WITH DIFFERENTIAL Routine 10/26/2023 3:20 AM EVENT AV OPERATOR BASIC METABOLIC PANEL Routine 10/26/2023 3:20 AM EVENT AV OPERATOR documented in this encounter Results * (ABNORMAL) CBC WITH DIFFERENTIAL (10/26/2023 3:20 AM EVENT AV OPERATOR) WBC 9.2 4.5 - 10.5 K/uL 10/26/2023 5:32 AM EVENT AV OPERATOR [facility] - [facility] RBC 3.83(L) 4.50 - 5.40 M/uL 10/26/2023 5:32 AM EVENT AV OPERATOR [facility] HEMOGLOBIN 11.4(L) 13.6 - 16.5 g/dL 10/26/2023 5:32 AM EVENT AV OPERATOR [facility] - [facility] HEMATOCRIT 35.4(L) 40.0 - 48.0 % 10/26/2023 5:32 AM EVENT AV OPERATOR [facility] LAB[facility] SERVICES [facility] MCV 92.4 82.0 - 99.0 fL 10/26/2023 5:32 AM EVENT AV OPERATOR [facility] - [facility] MCH 29.6 27.8 - 34.5 pg 10/26/2023 5:32 AM EVENT AV OPERATOR [facility] SERVICES [facility] MCHC 32.0(L) 32.5 - 35.5 g/dL 10/26/2023 5:32 AM EVENT AV OPERATOR [facility] SERVICES [facility] RDW 17.3(H) 11.5 - 14.5 % 10/26/2023 5:32 AM EVENT AV OPERATOR [facility] SERVICES [facility] PLATELETS 240 160 - 420 K/uL 10/26/2023 5:32 AM EVENT AV OPERATOR [facility] SERVICES [facility] MPV 9.3 8.7 - 12.7 fL 10/26/2023 5:32 AM EVENT AV OPERATOR [facility] SERVICES [facility] NEUTROPHILS 69 % 10/26/2023 5:32 AM EVENT AV OPERATOR [facility] SERVICES [facility] LYMPHOCYTES 21 % 10/26/2023 5:32 AM EVENT AV OPERATOR [employer] LABORATORY SERVICES [facility] MONOCYTES 6 % 10/26/2023 5:32 AM EVENT AV OPERATOR [facility] SERVICES [facility] EOSINOPHILS 4 % 10/26/2023 5:32 AM EVENT AV OPERATOR [facility] BASOPHILS 1 % 10/26/2023 5:32 AM EVENT AV OPERATOR [facility] SERVICES [facility] NEUTROPHIL ABSOLUTE 6.30 1.90 - 7.00 K/uL 10/26/2023 5:32 AM EVENT AV OPERATOR [facility] SERVICES [facility] LYMPHOCYTE ABSOLUTE 1.90 0.70 - 4.50 K/uL 10/26/2023 5:32 AM EVENT AV OPERATOR [facility] MONOCYTE ABSOLUTE 0.50 0.10 - 1.30 K/uL 10/26/2023 5:32 AM EVENT AV OPERATOR [facility] SERVICES [facility] EOSINOPHIL ABSOLUTE 0.40 0.00 - 0.70 K/uL 10/26/2023 5:32 AM EVENT AV OPERATOR [facility] SERVICES [facility] BASOPHILS ABSOLUTE 0.00 0.00 - 0.20 K/uL 10/26/2023 5:32 AM [facility] Blood Collection / Unknown 10/26/2023 3:20 AM EVENT AV OPERATOR 10/26/2023 4:57 AM EVENT AV OPERATOR Erik Chairez MD HEMATOLOGY ORDERABLES Final Resu lt [facility] CLIA# [id number] [facility] [place] [place] [address] * (ABNORMAL) BASIC METABOLIC PANEL (10/26/2023 3:20 AM EVENT AV OPERATOR) SODIUM 137 136 - 145 mmol/L 10/26/2023 5:58 AM [facility] POTASSIUM 4.2 3.4 - 5.1 mmol/L 10/26/2023 5:58 AM [facility] CHLORIDE 100 98 - 107 mmol/L 10/26/2023 5:58 AM [facility] CO2 27 22 - 29 mmol/L 10/26/2023 5:58 AM [facility] CALCIUM 9.8 8.6 - 10.4 mg/dL 10/26/2023 5:58 AM [facility] BUN 39(H) 6 - 20 mg/dL 10/26/2023 5:58 AM [facility] CREATININE 1.01 0.67 - 1.17 mg/dL 10/26/2023 5:58 AM [facility] Comment:The GFR result is no t clinically significant on patients <18 or >70 years of age. GLUCOSE 110(H) 74 - 99 mg/dL 10/26/2023 5:58 AM [facility] GFR >60 mL/min/1.7 3 sq meter 10/26/2023 5:58 AM [facility] Comment:eGFR calculated with 2020 CKD-EPI equation. Vegetarian diet, extremely high or low muscle mass, and may affect results. Cystatin C with Glomerular Filtration Rate is a suitable alternative for these patients. ANION GAP 10 8 - 16 mmol/L 10/26/2023 5:58 AM EVENT AV OPERATOR [facility] Blood Collection / Unknown 10/26/2023 3:20 AM EVENT AV OPERATOR 10/26/2023 4:57 AM EVENT AV OPERATOR Erik Chairez MD CHEMISTRY ORDERABLES Final Resul t [facility] CLIA# [id number] [place] [address] documented in this encounter Visit Diagnoses Not on filedocumented in this encounter Additional Health Concerns Infection Onset Date Last Indicated Resolved Time CRE-CP Comment:10/09/23 Klebsiella pneumoniae, Sputum 10/09/2023 10/09/2023 05/28/2024 2:37 PM C DT Multi Drug Resistant Organis m (MDRO) Comment:10/09/23 Klebsiella pneumoniae, CRE-CP organism, Sputum 10/09/2023 10/09/2023 LEAD PAINTER-CP Comment:10/09/23 Klebsiella pneumoniae, Sputum 10/09/2023 05/28/2024 documented as of this encounter
--- OUTSIDE RECORDS SUMMARY | 2024-11-06 18:41 | XMS_ITS | Encounter Summary ---
Author Organization [facility] Address [address] [place] [address] Care Team Providers Care Announcer Name Role Phone Unavailable Primary Care Provider Unavailabl e Encounter Details Date Type Department Care Team (Late st Contact Info) Description 11/07/2023 Lab Requisition [facility] Laboratory Services [address] [place] [address] [place] [address] [place] [address] Social History Tobacco Use Types Packs/Day Years Used Date Smoking Tobacco: Never Assessed Sex and Gender Information Value Date Recorded Sex Assigned at Not on file Legal Sex Male 9:18 AM SHUTTLE BUGGY OPERATOR Gender Identity Not on file Sexual Orientation Not on file documented as of this encounter Plan of Treatment Not on file documented as of this encounter Procedures Procedure Name Priority Date/Time Associated Diagnosis Comments THEOPHYLLINE LEVEL Routine 11/07/2023 8: 40 AM SHUTTLE BUGGY OPERATOR documented in this encounter Results * (ABNORMAL) THEOPHYLLINE LEVEL (11/07/2023 8:40 AM SHUTTLE BUGGY OPERATOR) THEOPHYLLINE LEVEL <0.8(L) 10.0 - 20.0 ug/mL 11/07/2023 3:56 PM SHUTTLE BUGGY OPERATOR [facility] SERVICES [facility] Comment:Verified by repeat a nalysis. TDM LAST DATE, TIME, AMT (TIFFANIE) Patient unable to state date. time or dose. 11/07/2023 3:56 PM SHUTTLE BUGGY OPERATOR [facility]OR[facility] SERVICES [facility] LAST DOSE AMT, THEOPHYLLINE Other 11/07/2023 3:56 PM SHUTTLE BUGGY OPERATOR [facility] SERVICES [facility] Comment:80 mg Blood 11/07/2023 8:40 AM SHUTTLE BUGGY OPERATOR 11/07/2023 10:34 AM SHUTTLE BUGGY OPERATOR Narrative [facility] - 11/07/2023 3:56 PM SHUTTLE BUGGY OPERATOR Theophylline Toxic Levels: 6 months - Adult = >20.0 ug/mL 0 - 6 months = >15.0 ug/mL Erik Chairez MD CHEMISTRY ORDERABLES Final Resul t [facility] CLIA# [id number] [address] [place] [address] [facility] CLIA# [id number] [address] [place] [address] documented in this encounter Visit Diagnoses Not on filedocumented in this encounter Additional Health Concerns Infection Onset Date Last Indicated Resolved Time CRE-CP Comment:10/09/23 Klebsiella pneumoniae, Sputum 10/09/2023 10/09/2023 05/28/2024 2:37 PM C DT Multi Drug Resistant Organis m (MDRO) Comment:10/09/23 Klebsiella pneumoniae, CRE-CP organism, Sputum 10/09/2023 10/09/2023 PIPED BUTTONHOLE MACHINE OPERATOR-CP Comment:10/09/23 Klebsiella pneumoniae, Sputum 10/09/2023 05/28/2024 documented as of this encounter
--- OUTSIDE RECORDS SUMMARY | 2024-11-06 18:41 | XMS_ITS | Encounter Summary ---
Author Organization [facility] Address [address] [place] [address] Care Team Providers Care Clinical Laboratory Aides Teacher Name Role Phone Unavailable Primary Care Provider Unavailabl e Encounter Details Date Type Department Care Team (Late st Contact Info) Description 11/07/2023 Lab Requisition [facility] Laboratory Services [address] [place] [address] [place] [address] [place] [address] Social History Tobacco Use Types Packs/Day Years Used Date Smoking Tobacco: Never Assessed Sex and Gender Information Value Date Recorded Sex Assigned at Not on file Legal Sex Male 9:18 AM LOADING MANAGER Gender Identity Not on file Sexual Orientation Not on file documented as of this encounter Plan of Treatment Not on file documented as of this encounter Procedures Procedure Name Priority Date/Time Associated Diagnosis Comments CBC WITH DIFFERENTIAL Routine 11/07/2023 4:30 AM LOADING MANAGER BASIC METABOLIC PANEL Routine 11/07/2023 4:30 AM LOADING MANAGER documented in this encounter Results * (ABNORMAL) CBC WITH DIFFERENTIAL (11/07/2023 4:30 AM LOADING MANAGER) WBC 9.4 4.5 - 10.5 K/uL 11/07/2023 8:10 AM LOADING MANAGER [facility]AT[facility] SERVICES - [facility] RBC 4.06(L) 4.50 - 5.40 M/uL 11/07/2023 8:10 AM LOADING MANAGER [facility] LABORATORY [facility] - [facility] HEMOGLOBIN 11.9(L) 13.6 - 16.5 g/dL 11/07/2023 8:10 AM LOADING MANAGER [facility] - [facility] HEMATOCRIT 37.1(L) 40.0 - 48.0 % 11/07/2023 8:10 AM LOADING MANAGER [facility] LABORATORY SERVICES [facility] MCV 91.5 82.0 - 99.0 fL 11/07/2023 8:10 AM LOADING MANAGER [facility]AT[facility] SERVICES - [facility] MCH 29.4 27.8 - 34.5 pg 11/07/2023 8:10 AM LOADING MANAGER [facility] SERVICES [facility] MCHC 32.1(L) 32.5 - 35.5 g/dL 11/07/2023 8:10 AM LOADING MANAGER [facility]AT[facility] SERVICES [facility] RDW 16.9(H) 11.5 - 14.5 % 11/07/2023 8:10 AM LOADING MANAGER [facility]ORATORY SERVICES [facility] PLATELETS 270 160 - 420 K/uL 11/07/2023 8:10 AM LOADING MANAGER [facility] SERVICES [facility] MPV 10.0 8.7 - 12.7 fL 11/07/2023 8:10 AM LOADING MANAGER [facility]ORATORY SERVICES [facility] NEUTROPHILS 61 % 11/07/2023 8:10 AM LOADING MANAGER [facility]ORATORY SERVICES [facility] LYMPHOCYTES 21 % 11/07/2023 8:10 AM LOADING MANAGER [facility] MONOCYTES 6 % 11/07/2023 8:10 AM LOADING MANAGER [facility] EOSINOPHILS 11 % 11/07/2023 8:10 AM LOADING MANAGER [facility] BASOPHILS 1 % 11/07/2023 8:10 AM LOADING MANAGER [facility]ORATORY SERVICES [facility] NEUTROPHIL ABSOLUTE 5.70 1.90 - 7.00 K/uL 11/07/2023 8:10 AM LOADING MANAGER [facility]ORATORY SERVICES [facility] LYMPHOCYTE ABSOLUTE 2.00 0.70 - 4.50 K/uL 11/07/2023 8:10 AM LOADING MANAGER [facility] MONOCYTE ABSOLUTE 0.60 0.10 - 1.30 K/uL 11/07/2023 8:10 AM LOADING MANAGER [facility]ORATORY SERVICES [facility] EOSINOPHIL ABSOLUTE 1.00(H) 0.00 - 0.70 K/uL 11/07/2023 8:10 AM LOADING MANAGER [facility] SERVICES [facility] BASOPHILS ABSOLUTE 0.10 0.00 - 0.20 K/uL 11/07/2023 8:10 AM [facility] Blood 11/07/2023 4:30 AM LOADING MANAGER 11/07/2023 8:06 AM LOADING MANAGER us Erik Chairez MD HEMATOLOGY ORDERABLES Final Resu lt [facility] CLIA# [id number] [address] [place] [address] * (ABNORMAL) BASIC METABOLIC PANEL (11/07/2023 4:30 AM LOADING MANAGER) SODIUM 137 136 - 145 mmol/L 11/07/2023 8:41 AM [facility] POTASSIUM 4.2 3.4 - 5.1 mmol/L 11/07/2023 8:41 AM [facility] CHLORIDE 100 98 - 107 mmol/L 11/07/2023 8:41 AM [facility] CO2 22 22 - 29 mmol/L 11/07/2023 8:41 AM [facility] CALCIUM 9.9 8.6 - 10.4 mg/dL 11/07/2023 8:41 AM [facility] BUN 41(H) 6 - 20 mg/dL 11/07/2023 8:41 AM [facility] CREATININE 1.03 0.67 - 1.17 mg/dL 11/07/2023 8:41 AM [facility] Comment:The GFR result is no t clinically significant on patients <18 or >70 years of age. GLUCOSE 109(H) 74 - 99 mg/dL 11/07/2023 8:41 AM [facility] GFR >60 mL/min/1.7 3 sq meter 11/07/2023 8:41 AM [facility] Comment:eGFR calculated with 2020 CKD-EPI equation. Vegetarian diet, extremely high or low muscle mass, and may affect results. Cystatin C with Glomerular Filtration Rate is a suitable alternative for these patients. 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
--- OUTSIDE RECORDS SUMMARY | 2024-11-06 18:41 | XMS_ITS | Encounter Summary ---
Author Organization [facility] Address [address] [place] [address] Care Team Providers Care Mail Order Sorter Name Role Phone Unavailable Primary Care Provider Unavailabl e Encounter Details Date Type Department Care Team (Late st Contact Info) Description 10/23/2023 Lab Requisition [facility] Laboratory Services [address] [place] [address] [place] [address] [place] [address] Social History Tobacco Use Types Packs/Day Years Used Date Smoking Tobacco: Never Assessed Sex and Gender Information Value Date Recorded Sex Assigned at Not on file Legal Sex Male 9:18 AM ACADEMIC AFFAIRS ASSISTANT Gender Identity Not on file Sexual Orientation Not on file documented as of this encounter Plan of Treatment Not on file documented as of this encounter Procedures Procedure Name Priority Date/Time Associated Diagnosis Comments CBC WITH DIFFERENTIAL Routine 10/23/2023 2:45 AM ACADEMIC AFFAIRS ASSISTANT BASIC METABOLIC PANEL Routine 10/23/2023 2:45 AM ACADEMIC AFFAIRS ASSISTANT documented in this encounter Results * (ABNORMAL) CBC WITH DIFFERENTIAL (10/23/2023 2:45 AM ACADEMIC AFFAIRS ASSISTANT) WBC 12.7(H) 4.5 - 10.5 K/uL 10/23/2023 11:15 AM ACADEMIC AFFAIRS ASSISTANT [facility]ORAT[facility] SERVICES - [facility] RBC 4.12(L) 4.50 - 5.40 M/uL 10/23/2023 11:15 AM ACADEMIC AFFAIRS ASSISTANT [facility] - [facility] HEMOGLOBIN 12.2(L) 13.6 - 16.5 g/dL 10/23/2023 11:15 AM ACADEMIC AFFAIRS ASSISTANT [facility]ORATORY SERVICES [facility] HEMATOCRIT 38.7(L) 40.0 - 48.0 % 10/23/2023 11:15 AM ACADEMIC AFFAIRS ASSISTANT [facility] SERVICES - [facility] MCV 94.0 82.0 - 99.0 fL 10/23/2023 11:15 AM ACADEMIC AFFAIRS ASSISTANT [facility]ORAT[facility] SERVICES [facility] MCH 29.7 27.8 - 34.5 pg 10/23/2023 11:15 AM ACADEMIC AFFAIRS ASSISTANT [facility] SERVICES [facility] MCHC 31.6(L) 32.5 - 35.5 g/dL 10/23/2023 11:15 AM ACADEMIC AFFAIRS ASSISTANT [facility] SERVICES [facility] RDW 17.3(H) 11.5 - 14.5 % 10/23/2023 11:15 AM ACADEMIC AFFAIRS ASSISTANT [facility] SERVICES [facility] PLATELETS 264 160 - 420 K/uL 10/23/2023 11:15 AM ACADEMIC AFFAIRS ASSISTANT [facility] SERVICES [facility] MPV 9.6 8.7 - 12.7 fL 10/23/2023 11:15 AM ACADEMIC AFFAIRS ASSISTANT [facility] SERVICES [facility] NEUTROPHILS 67 % 10/23/2023 11:15 AM ACADEMIC AFFAIRS ASSISTANT [facility] SERVICES [facility] LYMPHOCYTES 20 % 10/23/2023 11:15 AM ACADEMIC AFFAIRS ASSISTANT [facility] SERVICES [facility] MONOCYTES 5 % 10/23/2023 11:15 AM ACADEMIC AFFAIRS ASSISTANT [facility] SERVICES [facility] EOSINOPHILS 8 % 10/23/2023 11:15 AM ACADEMIC AFFAIRS ASSISTANT [facility] SERVICES [facility] BASOPHILS 1 % 10/23/2023 11:15 AM ACADEMIC AFFAIRS ASSISTANT [facility] SERVICES [facility] NEUTROPHIL ABSOLUTE 8.50(H) 1.90 - 7.00 K/uL 10/23/2023 11:15 AM ACADEMIC AFFAIRS ASSISTANT [facility] SERVICES [facility] LYMPHOCYTE ABSOLUTE 2.50 0.70 - 4.50 K/uL 10/23/2023 11:15 AM ACADEMIC AFFAIRS ASSISTANT [facility] SERVICES [facility] MONOCYTE ABSOLUTE 0.60 0.10 - 1.30 K/uL 10/23/2023 11:15 AM ACADEMIC AFFAIRS ASSISTANT [facility] SERVICES [facility] EOSINOPHIL ABSOLUTE 1.00(H) 0.00 - 0.70 K/uL 10/23/2023 11:15 AM ACADEMIC AFFAIRS ASSISTANT [facility] SERVICES [facility] BASOPHILS ABSOLUTE 0.10 0.00 - 0.20 K/uL 10/23/2023 11:15 AM [facility] Blood Collection / Unknown 10/23/2023 2:45 AM ACADEMIC AFFAIRS ASSISTANT 10/23/2023 10:44 AM ACADEMIC AFFAIRS ASSISTANT Erik Chairez MD HEMATOLOGY ORDERABLES Final Resu lt [facility] CLIA# [id number] [address] [place] [address] * (ABNORMAL) BASIC METABOLIC PANEL (10/23/2023 2:45 AM ACADEMIC AFFAIRS ASSISTANT) SODIUM 139 136 - 145 mmol/L 10/23/2023 11:42 AM [facility] POTASSIUM 4.5 3.4 - 5.1 mmol/L 10/23/2023 11:42 AM [facility] CHLORIDE 100 98 - 107 mmol/L 10/23/2023 11:42 AM [facility] CO2 24 22 - 29 mmol/L 10/23/2023 11:42 AM [facility] CALCIUM 9.6 8.6 - 10.4 mg/dL 10/23/2023 11:42 AM [facility] BUN 36(H) 6 - 20 mg/dL 10/23/2023 11:42 AM [facility] CREATININE 0.95 0.67 - 1.17 mg/dL 10/23/2023 11:42 AM [facility] Comment:The GFR result is no t clinically significant on patients <18 or >70 years of age. GLUCOSE 86 74 - 99 mg/dL 10/23/2023 11:42 AM [facility] GFR >60 mL/min/1.7 3 sq meter 10/23/2023 11:42 AM [facility] Comment:eGFR calculated with 2020 CKD-EPI equation. Vegetarian diet, extremely high or low muscle mass, and may affect results. Cystatin C with Glomerular Filtration Rate is a suitable alternative for these patients. ANION GAP 15 8 - 16 mmol/L 10/23/2023 11:42 AM ACADEMIC AFFAIRS ASSISTANT [facility] SERVICES [facility] Blood Collection / Unknown 10/23/2023 2:45 AM ACADEMIC AFFAIRS ASSISTANT 10/23/2023 10:44 AM ACADEMIC AFFAIRS ASSISTANT Erik Chairez MD CHEMISTRY ORDERABLES Final Resul t [facility] SERVICES [facility] CLIA# [id number] [address] [place] [address] documented in this encounter Visit Diagnoses Not on filedocumented in this encounter Additional Health Concerns Infection Onset Date Last Indicated Resolved Time CRE-CP Comment:10/09/23 Klebsiella pneumoniae, Sputum 10/09/2023 10/09/2023 05/28/2024 2:37 PM C DT 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
--- OUTSIDE RECORDS SUMMARY | 2024-11-06 18:41 | XMS_ITS | Encounter Summary ---
Author Organization [facility] Address [address] [place] [address] Care Team Providers Care Document Management Technician Name Role Phone Unavailable Primary Care Provider Unavailabl e Encounter Details Date Type Department Care Team (Late st Contact Info) Description 11/10/2023 Lab Requisition [facility] Laboratory Services [address] [place] [address] [place] [address] [place] [address] Social History Tobacco Use Types Packs/Day Years Used Date Smoking Tobacco: Never Assessed Sex and Gender Information Value Date Recorded Sex Assigned at Not on file Legal Sex Male 9:18 AM RUBBER ENGRAVER Gender Identity Not on file Sexual Orientation Not on file documented as of this encounter Plan of Treatment Not on file documented as of this encounter Procedures Procedure Name Priority Date/Time Associated Diagnosis Comments CBC WITH DIFFERENTIAL Routine 11/10/2023 6:10 AM RUBBER ENGRAVER BASIC METABOLIC PANEL Routine 11/10/2023 6:10 AM RUBBER ENGRAVER documented in this encounter Results * (ABNORMAL) CBC WITH DIFFERENTIAL (11/10/2023 6:10 AM RUBBER ENGRAVER) WBC 7.9 4.5 - 10.5 K/uL 11/10/2023 6:55 AM RUBBER ENGRAVER [facility]AT[facility] SERVICES - [facility] RBC 3.65(L) 4.50 - 5.40 M/uL 11/10/2023 6:55 AM RUBBER ENGRAVER [facility] LABORATORY [facility] - [facility] HEMOGLOBIN 10.8(L) 13.6 - 16.5 g/dL 11/10/2023 6:55 AM RUBBER ENGRAVER [facility]ATORY SERVICES - [facility] HEMATOCRIT 33.6(L) 40.0 - 48.0 % 11/10/2023 6:55 AM RUBBER ENGRAVER [facility] LABORATORY SERVICES [facility] MCV 92.0 82.0 - 99.0 fL 11/10/2023 6:55 AM RUBBER ENGRAVER [facility]ORATORY SERVICES [facility] MCH 29.7 27.8 - 34.5 pg 11/10/2023 6:55 AM RUBBER ENGRAVER [facility]ORATORY SERVICES [facility] MCHC 32.2(L) 32.5 - 35.5 g/dL 11/10/2023 6:55 AM RUBBER ENGRAVER [facility]ORATORY SERVICES [facility] RDW 17.0(H) 11.5 - 14.5 % 11/10/2023 6:55 AM RUBBER ENGRAVER [facility]ORATORY SERVICES [facility] PLATELETS 251 160 - 420 K/uL 11/10/2023 6:55 AM RUBBER ENGRAVER [facility] MPV 9.2 8.7 - 12.7 fL 11/10/2023 6:55 AM RUBBER ENGRAVER [facility] LABORATORY SERVICES [facility] NEUTROPHILS 62 % 11/10/2023 6:55 AM RUBBER ENGRAVER [facility]ORATORY SERVICES [facility] LYMPHOCYTES 22 % 11/10/2023 6:55 AM RUBBER ENGRAVER [facility] MONOCYTES 5 % 11/10/2023 6:55 AM RUBBER ENGRAVER [facility] EOSINOPHILS 10 % 11/10/2023 6:55 AM RUBBER ENGRAVER [facility] BASOPHILS 1 % 11/10/2023 6:55 AM RUBBER ENGRAVER [facility]ORATORY SERVICES [facility] NEUTROPHIL ABSOLUTE 4.90 1.90 - 7.00 K/uL 11/10/2023 6:55 AM RUBBER ENGRAVER [facility] LABORATORY SERVICES [facility] LYMPHOCYTE ABSOLUTE 1.70 0.70 - 4.50 K/uL 11/10/2023 6:55 AM RUBBER ENGRAVER [facility] LABORATORY SERVICES [facility] MONOCYTE ABSOLUTE 0.40 0.10 - 1.30 K/uL 11/10/2023 6:55 AM RUBBER ENGRAVER [facility] LABORATORY SERVICES [facility] EOSINOPHIL ABSOLUTE 0.80(H) 0.00 - 0.70 K/uL 11/10/2023 6:55 AM RUBBER ENGRAVER [facility] BASOPHILS ABSOLUTE 0.10 0.00 - 0.20 K/uL 11/10/2023 6:55 AM [facility] Blood 11/10/2023 6:10 AM RUBBER ENGRAVER 11/10/2023 6:41 AM RUBBER ENGRAVER Erik Chairez MD HEMATOLOGY ORDERABLES Final Resu lt [facility] CLIA# [id number] [address] [place] [address] * (ABNORMAL) BASIC METABOLIC PANEL (11/10/2023 6:10 AM RUBBER ENGRAVER) SODIUM 139 136 - 145 mmol/L 11/10/2023 7:14 AM [facility] POTASSIUM 4.2 3.4 - 5.1 mmol/L 11/10/2023 7:14 AM [facility] CHLORIDE 103 98 - 107 mmol/L 11/10/2023 7:14 AM [facility] CO2 26 22 - 29 mmol/L 11/10/2023 7:14 AM [facility] CALCIUM 9.4 8.6 - 10.4 mg/dL 11/10/2023 7:14 AM [facility] BUN 39(H) 6 - 20 mg/dL 11/10/2023 7:14 AM [facility] CREATININE 0.98 0.67 - 1.17 mg/dL 11/10/2023 7:14 AM [facility] Comment:The GFR result is no t clinically significant on patients <18 or >70 years of age. GLUCOSE 111(H) 74 - 99 mg/dL 11/10/2023 7:14 AM [facility] GFR >60 mL/min/1.7 3 sq meter 11/10/2023 7:14 AM [facility] Comment:eGFR calculated with 2020 CKD-EPI equation. Vegetarian diet, extremely high or low muscle mass, and may affect results. Cystatin C with Glomerular Filtration Rate is a suitable alternative for these patients. ANION GAP 10 8 - 16 mmol/L 11/10/2023 7:14 AM RUBBER ENGRAVER [facility]ORATORY SERVICES [facility] Blood 11/10/2023 6:10 AM RUBBER ENGRAVER 11/10/2023 6:41 AM RUBBER ENGRAVER Erik Chairez MD CHEMISTRY ORDERABLES Final Resul t [facility] LABORATORY [facility] CLIA# [id number] [address] [place] [address] documented in this encounter Visit Diagnoses Not on filedocumented in this encounter Additional Health Concerns Infection Onset Date Last Indicated Resolved Time CRE-CP Comment:10/09/23 Klebsiella pneumoniae, Sputum 10/09/2023 10/09/2023 05/28/2024 2:37 PM C DT 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
--- OUTSIDE RECORDS SUMMARY | 2024-11-06 18:41 | XMS_ITS | Encounter Summary ---
Author Organization [facility] Health Address [address] [facility] [place] [address] Care Team Providers Care Rn Security Name Role Phone Demond Stark MD Primary Care Provider [phone] Encounter Details Date Type Department Care Team (Late Contact Info) Description 06/13/2023 Lab Requisition [facility] [address] [place] [id number] Jaxon Anaya MD [address] [address] Social History Tobacco Use Types Packs/Day Years [...] Visit [facility] - Neurology [address] [place] [phone] Alberto Jeffers MD [address] [facility] [place] [phone] documented as of this encounter Procedures Procedure Name Priority Date/Time Associated Diagnosis Comments DERMATOPATHOLOGY Routine 06/12/2023 12:0 0 AM CDT documented in this encounter Results * DERMATOPATHOLOGY (06/12/2023 12:00 AM CDT) Case Report Dermatopathology Report Case: [id number] Authorizing Provider: Jaxon Anaya MD Collected: 06/12/2023 12:00 AM Ordering Location: [facility] D[facility] Lab Received: 06/13/2023 01:28 PM [...] specimen consists of a shave biopsy measuring [id number] mm. Jar 0. 3:42 PM CDT DERMATOPATHOLOGY [...] characteristic determined by the Dermatopathology Laboratory at [facility], directed by Dr. Georgina Young. These tests need not be, and therefore are not, approved by the [place] Food and Drug Administration. The tests are used for clinical purposes. Billing Codes Specimen Charges Stain Charges 83314 1 87611 1 3 3:42 PM CDT DERMATOPATHOLOGY LABORATORY Embedded Images 3 3:42 PM CDT DERMATOPATHOLOGY LABORATORY Pathology/Cytolog y TISSUE SPECIMEN FROM SKIN / Unknown 06/12/2023 06/13/2023 1:28 PM CDT Jaxon Anaya MD LAB - PATHOLOGY/CYTO LOGY ORDERABLES DERMATOPATHOLOGY LABORATORY [facility] - Department of Dermatology [facility] Medicine [address] [place] [address], [address] [phone] documented in this encounter Visit Diagnoses Not on filedocumented in this encounter Care Teams Rn Security Relationship Specialty Start Date End Date Demond Stark MD [address] [place] [address] PCP - General 10/03/15 documented as of this encounter
--- OUTSIDE RECORDS SUMMARY | 2024-11-06 18:41 | XMS_ITS | Encounter Summary ---
Author Organization [facility] Address [address] [place] [address] Care Team Providers Care Senior Reliability Engineer Name Role Phone Unavailable Primary Care Provider Unavailabl e Encounter Details Date Type Department Care Team (Late st Contact Info) Description 10/29/2023 Lab Requisition [facility] Laboratory Services [address] [place] [address] [place] [address] [place] [address] Social History Tobacco Use Types Packs/Day Years Used Date Smoking Tobacco: Never Assessed Sex and Gender Information Value Date Recorded Sex Assigned at Not on file Legal Sex Male 9:18 AM PANTOGRAPHER Gender Identity Not on file Sexual Orientation Not on file documented as of this encounter Plan of Treatment Not on file documented as of this encounter Procedures Procedure Name Priority Date/Time Associated Diagnosis Comments CBC WITH DIFFERENTIAL Routine 10/29/2023 3:20 AM PANTOGRAPHER BASIC METABOLIC PANEL Routine 10/29/2023 3:20 AM PANTOGRAPHER documented in this encounter Results * (ABNORMAL) CBC WITH DIFFERENTIAL (10/29/2023 3:20 AM PANTOGRAPHER) WBC 8.0 4.5 - 10.5 K/uL 10/29/2023 8:18 AM PANTOGRAPHER [facility] RBC 3.85(L) 4.50 - 5.40 M/uL 10/29/2023 8:18 AM PANTOGRAPHER [facility] HEMOGLOBIN 11.6(L) 13.6 - 16.5 g/dL 10/29/2023 8:18 AM PANTOGRAPHER [facility] HEMATOCRIT 35.7(L) 40.0 - 48.0 % 10/29/2023 8:18 AM PANTOGRAPHER [facility] MCV 92.6 82.0 - 99.0 fL 10/29/2023 8:18 AM PANTOGRAPHER [facility] MCH 30.0 27.8 - 34.5 pg 10/29/2023 8:18 AM PANTOGRAPHER [facility] MCHC 32.4(L) 32.5 - 35.5 g/dL 10/29/2023 8:18 AM PANTOGRAPHER [facility] RDW 17.3(H) 11.5 - 14.5 % 10/29/2023 8:18 AM PANTOGRAPHER [facility] PLATELETS 255 160 - 420 K/uL 10/29/2023 8:18 AM PANTOGRAPHER [facility] MPV 9.9 8.7 - 12.7 fL 10/29/2023 8:18 AM PANTOGRAPHER [facility] NEUTROPHILS 61 % 10/29/2023 8:18 AM PANTOGRAPHER [facility] LYMPHOCYTES 22 % 10/29/2023 8:18 AM PANTOGRAPHER [facility] MONOCYTES 6 % 10/29/2023 8:18 AM [facility]ANT[facility]GRAPHER [facility] EOSINOPHILS 11 % 10/29/2023 8:18 AM PANTOGRAPHER [facility] BASOPHILS 1 % 10/29/2023 8:18 AM PANTOGRAPHER [facility] NEUTROPHIL ABSOLUTE 4.90 1.90 - 7.00 K/uL 10/29/2023 8:18 AM PANTOGRAPHER [facility] LYMPHOCYTE ABSOLUTE 1.70 0.70 - 4.50 K/uL 10/29/2023 8:18 AM PANTOGRAPHER [facility] MONOCYTE ABSOLUTE 0.50 0.10 - 1.30 K/uL 10/29/2023 8:18 AM PANTOGRAPHER [facility] EOSINOPHIL ABSOLUTE 0.80(H) 0.00 - 0.70 K/uL 10/29/2023 8:18 AM PANTOGRAPHER [facility] BASOPHILS ABSOLUTE 0.00 0.00 - 0.20 K/uL 10/29/2023 8:[address] [facility] Blood Collection / Unknown 10/29/2023 3:20 AM PANTOGRAPHER 10/29/2023 7:59 AM PANTOGRAPHER Erik Chairez MD HEMATOLOGY ORDERABLES Final Resu lt [facility] CLIA# [id number] [address] [place] [address] * (ABNORMAL) BASIC METABOLIC PANEL (10/29/2023 3:20 AM PANTOGRAPHER) SODIUM 141 136 - 145 mmol/L 10/29/2023 8:[address] [facility] POTASSIUM 4.5 3.4 - 5.1 mmol/L 10/29/2023 8:[address] [facility] CHLORIDE 101 98 - 107 mmol/L 10/29/2023 8:[address] [facility] CO2 28 22 - 29 mmol/L 10/29/2023 8:[address] [facility] CALCIUM 10.2 8.6 - 10.4 mg/dL 10/29/2023 8:[address] [facility] BUN 42(H) 6 - 20 mg/dL 10/29/2023 8:[address] [facility] CREATININE 1.05 0.67 - 1.17 mg/dL 10/29/2023 8:[address] [facility] Comment:The GFR result is no t clinically significant on patients <18 or >70 years of age. GLUCOSE 112(H) 74 - 99 mg/dL 10/29/2023 8:[address] [facility] GFR >60 mL/min/1.7 3 sq meter 10/29/2023 8:[address] [facility] Comment:eGFR calculated with 2020 CKD-EPI equation. Vegetarian diet, extremely high or low muscle mass, and may affect results. Cystatin C with Glomerular Filtration Rate is a suitable alternative for these patients. ANION GAP 12 8 - 16 mmol/L 10/29/2023 8:38 AM PANTOGRAPHER [facility] Blood Collection / Unknown 10/29/2023 3:20 AM PANTOGRAPHER 10/29/2023 7:59 AM PANTOGRAPHER Erik Chairez MD CHEMISTRY ORDERABLES Final Resul t [facility] CLIA# [id number] [address] [place] [address] documented in this encounter Visit Diagnoses Not on filedocumented in this encounter Additional Health Concerns Infection Onset Date Last Indicated Resolved Time CRE-CP Comment:10/09/23 Klebsiella pneumoniae, Sputum 10/09/2023 10/09/2023 05/28/2024 2:37 PM C DT 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
--- NOTE | 2024-11-06 19:33 | ADMGEN ---
This patient, Omar Ryan, was admitted to IMU Room 207-01 at 1917. Patient/family oriented to hospital policies and general routines including ID bracelet, bed and alarms, visiting hours, pain management, procedures, bathroom and other care routines, personal items, smoking policy, room service/diet, and visiting hours. Information on how to activate the Rapid Response Team has been discussed. Patient/Family are encouraged to report perceived risks to care and to ask questions if they do not understand what they are told or what they should do.
[2024-11-07] VITALS (16 sets, daily range): BP systolic 106–142; BP diastolic 45–91; PULSE 65–94; RESP 16–26; TEMP 36.4–37; O2SAT 94–98
--- NOTE | 2024-11-07 05:00 | PM.IMHP ---
H&P: HPI History of Present Illness Date/Time: 11/07/24 03:3000 Chief Complaint: Abnormal movements Narrative: 84-year-old male with a complex past medical history including atrial fibrillation on chronic anticoagulation, hypothyroidism, coronary artery disease, seizures, and chronic vertigo and dysarthria who presented to the ER from home via EMS due to abnormal movements and slurred speech. The patient's helps provide majority of the history in addition to review of past medical records and ER physician report. The patient had woke up a couple of hours after falling asleep. He was off balance and shaking. Seemed to be falling from side to side when he was trying to sit up. He was also having some difficulty getting his words out. However patient does have chronic vertigo and chronic dysarthria that is usually worse when he 1st wakes up. His dysarthria had improved during the course of the ER visit. When I evaluated the patient 03:00 I had to wake him from sleep and he again had dysarthria that seemed to improve throughout the course of my interview. The patient's knows that the patient has had several days of cough. She has also noticed that he has been coughing with eating. He did have prior history of tracheostomy with subsequent removal in history of dysphagia last year following a prolonged hospital stay. The his reports that the patient used to have difficulty with food getting stuck. The patient denies sensation of globus. He has been having some chills interspersed with feeling warm but is been afebrile since admission. His reports that he has chronic lower extremity swelling in his lower extremities appear stable compared to baseline. She reports his legs will become purple in color if he lets his feet dangle. He denies any foot pain or calf pain. He has been having normal output from his ostomy. He has not had any recent ill contacts. His influenza, RSV and COVID PCR were negative. He denies any chest pain or palpitations. Patient was noted to be in AFib of presentation which seems to be his baseline heart rhythm. He is on chronic anticoagulation. His troponins in the ER were noted to be mildly elevated but he is not having any chest pain. He denies feeling short of breath. Review of Systems Review of Systems: 12 systems were reviewed with pertinent positives and negatives per HPI. Except as documented in the HPI, all other systems were reviewed and are negative. PMFSH Past Medical History Medical History (Updated 11/07/24 @ 05:59 by Kenzie Chiu DO) Grade II diastolic dysfunction History of open sigmoidectomy Vitamin D deficiency, unspecified Paroxysmal atrial fibrillation Brain bleed Prostate CA Basal cell carcinoma Hepatitis B Prediabetes Hypothyroid Constipation GERD (gastroesophageal reflux disease) Hyperlipidemia Hypertension CAD (coronary artery disease) Myocardial infarct Seizures Surgical History Surgical History (Updated 11/07/24 @ 05:35 by Kenzie Chiu DO) S/P hernia repair 08/02/2023 had open repair of right inguinal hernia due to 70% of the patient's small bowel contents being within the hernia, complicated by postoperative abscess requiring percutaneous drain, 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 The patient had postoperative shock and remained intubated for a prolonged period requiring tracheostomy and transfer to LTAC 10/09/2023 S/P percutaneous endoscopic gastrostomy (PEG) tube placement (09/25/23) With subsequent removal History of tracheostomy 09/13/2023 with subsequent removal History of colostomy Status post Willy procedure 09/04/23 Extensive (2 1/2 hrs) adhesiolysis, sigmoidectomy with end descending colostomy and Willy procedure Hx of local excision of skin lesion H/O arthroscopy lt knee H/O prostatectomy Hx of colonoscopy 2012 - Dr. Yen Hx of CABG 11/2009 - triple bypass surgery at [facility] Family History Family History Father Malignant neoplasm of prostate Sibling Ovarian cancer Mother , epilepsy No problems noted. Sibling No problems noted. Social History Social History (Updated 11/07/24 @ 05:38 by Kenzie Chiu DO) Social History: Patient lives with his Cherie. He has a distant history of smoking a 12 pack per year history. He used to rarely drinks alcohol and only in moderation. Code status: Full code Surrogate decision maker: Sid () Smoking packs per day: 2 Smoking cigarettes per day: 40.0 Years smoked: 12 Smoking pack-years: 24.00 Smoking status: Former smoker Tobacco type: cigarettes Second hand tobacco smoke exposure: No Smoking end date: 09/23/70 Alcohol intake: never Alcohol use details: RARELY - 1/2 CASE BEER/YR Substance use: never Substance use type: does not use Do You Feel Safe in your Home?: Yes Lack of Transportation: No Lack of Food: Never True Current Housing: I Have Housing Concerned About Future Housing: No Difficulty Paying Gas/Electric Bills: No Difficulty Paying for Meds: No Currently Unemployed: No Education: High School Diploma/GED Difficulty w/ Childcare or Family Care: No Living arrangements: with family Occupation/Education: retired 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[employer] Gender identity (if verbalized by the patient): Male Spiritual care concerns: No Meds Home Medications and Allergies Home Medications ?Medication ?Instructions ?Recorded ?Confirmed ?Type loratadine 10 mg tablet (Claritin) 10 mg PO DAILY 05/15/22 11/06/24 History rivaroxaban 20 mg tablet (Xarelto) 20 mg PO QPM 07/30/23 11/06/24 History simethicone 62.5 mg oral strips 1 strip PO BID 12/02/23 11/06/24 History (Gas-X) aspirin 81 mg chewable tablet 1 tablet PO DAILY 01/06/24 11/06/24 History docusate sodium 100 mg capsule 100 mg PO DAILY 03/25/24 11/06/24 History (Stool Softener) pyridoxine (vitamin B6) 100 mg 100 mg PO DAILY 03/25/24 11/06/24 History tablet famotidine 20 mg tablet 20 mg PO DAILY #90 tabs 09/21/24 11/06/24 Rx nystatin 100,000 unit/gram topical 1 applic topical TID #60 grams 10/26/24 11/06/24 Rx powder levothyroxine 112 mcg tablet 112 mcg PO DAILY@0630 11/06/24 11/06/24 History Allergies Allergy/AdvReac Type Severity Reaction Status Date / Time [id number] Reductase Allergy Unknown Joint Pain Verified 11/06/24 10:13 Inhibitor ([id number]-Iqg & MUSCLE Reductase Inhibitor) WEAKNESS diphenhydramine (From AdvReac Agitated Verified 11/06/24 10:13 Benadryl) halobetasol AdvReac Rash Verified 09/03/24 10:25 quetiapine (From Seroquel) AdvReac Agitated Verified 11/06/24 10:13 Vital Signs Vital Signs - 24 hr 11/06/24 09:40 11/06/24 14:20 11/06/24 18:53 Temperature 97 F L Pulse Rate 78 93 84 Respiratory Rate 19 16 22 H Blood Pressure 184/103 H 174/89 H 145/88 H Pulse Oximetry 97 98 96 Oxygen Delivery Room Air 11/06/24 20:00 11/06/24 20:00 11/06/24 20:04 Temperature 97.4 F L Pulse Rate 88 70 Respiratory Rate 22 H Blood Pressure 137/82 Pulse Oximetry 97 Oxygen Delivery Room Air 11/06/24 22:00 11/06/24 23:44 11/07/24 00:00 Temperature 97.8 F Pulse Rate 80 86 Respiratory Rate 22 H Blood Pressure 120/70 Pulse Oximetry 97 Oxygen Delivery Room Air 11/07/24 00:00 11/07/24 02:00 11/07/24 04:00 Temperature Pulse Rate 65 69 74 Respiratory Rate Blood Pressure Pulse Oximetry Oxygen Delivery 11/07/24 04:15 Temperature Pulse Rate Respiratory Rate Blood Pressure Pulse Oximetry Oxygen Delivery Room Air Exam Narrative: Weight 91.5 kg BMI 27.4 Const: Other: No acute distress, well-developed well-nourished, appears stated age, generalized weakness HENMT: Other: Head is normocephalic atraumatic, pupils are equal and reactive, extraocular movements are delayed but intact Eyes: Other: Pupils are equal and reactive, extraocular movements intact but delayed, no scleral icterus Neck: Other: No JVD, no lymphadenopathy, tracheostomy scar present Resp: Other: Crackles at bilateral bases, frequent cough with deep inspiration Cardio: Other: Irregularly irregular, rate controlled, 2+ bilateral radial pedal pulses, 2/6 systolic murmur GI: Other: Soft, nontender, nondistended, positive bowel sounds, ostomy draining in the left lower abdomen : Other: Pure wick catheter in place Skin: Other: No pallor, non jaundice, chronic skin changes to bilateral lower extremities consistent with history of peripheral vascular disease Neuro: Other: Alert oriented to person, month, year, confused as to place, speech is slow and intermittently slurred, equal strength bilaterally but fine motor delay Extrem: Other: 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, 1+ pitting edema bilateral lower extremities Psych: Other: Pleasantly confused, cooperative, cracking jokes H&P: Results Labs Labs: Short CBC 11/06/24 Range/Units 10:27 WBC 10.3 H (4.5-10.0) K/mm3 Hgb 13.5 L (14.0-18.0) g/dL Hct 41.6 L (42.0-52.0) % Plt Count 195 (150-375) k/mm3 BMP 11/06/24 10:27 Sodium 142 Potassium 3.7 Chloride 102 Carbon Dioxide 27 BUN 29 H Creatinine 0.92 Glucose 143 H Calcium 9.1 Cardiac Enzymes 11/06/24 11/06/24 11/06/24 Range/Units 10:27 14:06 17:41 Troponin I 0.237 H* 0.207 H* 0.207 H* (0.000-0.034) ng/mL Liver Function 11/06/24 Range/Units 10:27 Total Bilirubin 0.6 (0.2-1.3) mg/dL AST 41 (17-59) U/L ALT 33 (6-50) U/L Alkaline Phosphatase 96 (38-126) U/L Albumin 4.4 (3.5-5.1) g/dL Urine 11/06/24 Range/Units 10:47 Urine Color Yellow (Yellow) Urine Appearance Clear (Clear) Urine pH 7.0 (5.0-9.0) Ur Specific [place] 1.016 (1.001-1.035) Urine Protein 2+ H (Negative) mg/dL Urine Glucose (UA) Trace H (Negative) mg/dL Laboratory Tests 11/07/24 05:13 11/06/24 11/06/24 11/06/24 10:22 10:26 10:27 WBC 10.3 H RBC 4.35 L Hgb 13.5 L Hct 41.6 L MCV 95.6 MCH 31.0 MCHC 32.5 RDW 12.7 Plt Count 195 MPV 11.3 H Immature Gran % (Auto) 0.4 Neut % (Auto) 84.2 H Lymph % (Auto) 8.2 L [place] % (Auto) 5.8 Eos % (Auto) 1.1 Baso % (Auto) 0.3 Lymph # (Auto) 0.85 L [place] # (Auto) 0.6 Eos # (Auto) 0.1 Baso # (Auto) 0.0 Abs Immat Gran (auto) 0.04 H Absolute Neuts (auto) 8.7 H Absolute Nucleated RBC 0.000 Nucleated RBC % 0.0 PT 16.5 H INR 1.3 APTT 31.6 Sodium 142 Potassium 3.7 Chloride 102 Carbon Dioxide 27 Anion Gap 13 H BUN 29 H Creatinine 0.92 Estim Creat Clear Calc 58 Estimated GFR > 60 Glucose 143 H POC Capillary Glucose 143 H Lactic Acid Calcium 9.1 Total Bilirubin 0.6 AST 41 ALT 33 Alkaline Phosphatase 96 Troponin I 0.237 H* NT-Pro-B Natriuret Pep 2310 H Total Protein 8.0 Albumin 4.4 Urine Color Urine Appearance Urine pH Ur Specific [place] Urine Protein Urine Glucose (UA) Urine Ketones Ur Blood (Man) Urine Nitrate Urine Bilirubin Urine Urobilinogen Add Ur Microanalysis Leukocyte Esterase Rfl Urine RBC Urine WBC Ur Squamous Epith Cells Urine Bacteria Urine Casts Influenza A (RT-PCR) Negative Influenza B (RT-PCR) Negative RSV (RT-PCR) Negative SARS-CoV-2 RNA (RT-PCR) Negative 11/06/24 11/06/24 11/06/24 10:47 14:06 17:41 WBC RBC Hgb Hct MCV MCH MCHC RDW Plt Count MPV Immature Gran % (Auto) Neut % (Auto) Lymph % (Auto) [place] % (Auto) Eos % (Auto) Baso % (Auto) Lymph # (Auto) [place] # (Auto) Eos # (Auto) Baso # (Auto) Abs Immat Gran (auto) Absolute Neuts (auto) Absolute Nucleated RBC Nucleated RBC % PT INR APTT Sodium Potassium Chloride Carbon Dioxide Anion Gap BUN Creatinine Estim Creat Clear Calc Estimated GFR Glucose POC Capillary Glucose Lactic Acid 2.2 H 2.4 H Calcium Total Bilirubin AST ALT Alkaline Phosphatase Troponin I 0.207 H* 0.207 H* NT-Pro-B Natriuret Pep Total Protein Albumin Urine Color Yellow Urine Appearance Clear Urine pH 7.0 Ur Specific [place] 1.016 Urine Protein 2+ H Urine Glucose (UA) Trace H Urine Ketones Negative Ur Blood (Man) Negative Urine Nitrate Negative Urine Bilirubin Negative Urine Urobilinogen 0.2 Add Ur Microanalysis Reviewed Leukocyte Esterase Rfl Negative Urine RBC 11-20 H Urine WBC 0-5 Ur Squamous Epith Cells None seen Urine Bacteria None seen Urine Casts 0-2 Influenza A (RT-PCR) Influenza B (RT-PCR) RSV (RT-PCR) SARS-CoV-2 RNA (RT-PCR) 11/07/24 05:13 WBC 11.2 H RBC 4.13 L Hgb 12.7 L Hct 39.1 L MCV 94.7 MCH 30.8 MCHC 32.5 RDW 12.6 Plt Count 197 MPV 10.6 H Immature Gran % (Auto) 0.4 Neut % (Auto) 75.6 H Lymph % (Auto) 14.5 L [place] % (Auto) 7.5 Eos % (Auto) 1.5 Baso % (Auto) 0.5 Lymph # (Auto) 1.63 [place] # (Auto) 0.8 H Eos # (Auto) 0.2 Baso # (Auto) 0.1 Abs Immat Gran (auto) 0.05 H Absolute Neuts (auto) 8.5 H Absolute Nucleated RBC 0.000 Nucleated RBC % 0.0 PT INR APTT Sodium Pending Potassium Pending Chloride Pending Carbon Dioxide Pending Anion Gap Pending BUN Pending Creatinine Pending Estim Creat Clear Calc Pending Estimated GFR Pending Glucose Pending POC Capillary Glucose Lactic Acid Calcium Pending Total Bilirubin AST ALT Alkaline Phosphatase Troponin I NT-Pro-B Natriuret Pep Total Protein Albumin Urine Color Urine Appearance Urine pH Ur Specific [place] Urine Protein Urine Glucose (UA) Urine Ketones Ur Blood (Man) Urine Nitrate Urine Bilirubin Urine Urobilinogen Add Ur Microanalysis Leukocyte Esterase Rfl Urine RBC Urine WBC Ur Squamous Epith Cells Urine Bacteria Urine Casts Influenza A (RT-PCR) Influenza B (RT-PCR) RSV (RT-PCR) SARS-CoV-2 RNA (RT-PCR) Impressions Chest X-Ray 11/06/24 11:04 IMPRESSION: 1. Airspace and interstitial opacities in right mid and lower lung zones, consistent with pneumonia versus mild pulmonary edema. Head/Neck CTA 11/06/24 11:24 IMPRESSION: 1. 50% stenosis of the right carotid bulb relative to normal distal artery lumen diameter (NASCET criteria). 2. Atherosclerotic plaque with 0% stenosis of the left carotid bulb relative to normal distal artery lumen diameter. 3. Left vertebral artery is dominant with potentially minimally significant stenosis at the proximalmost and diminutive distalmost right vertebral artery. Otherwise unremarkable cerebral CT angiogram with no other hemodynamically significant stenosis, aneurysm or thrombosis. 4. Normal aging brain. No acute intracranial process or abnormally enhancing brain lesions. 5. Mild pulmonary edema in the visualized upper lungs. EKG: Measurements Intervals [place] Rate: 71 P: 0 NH: 0 QRS: 19 QRSD: 97 T: 0 QT: 387 QTc: 422 Interpretive Statements ATRIAL FIBRILLATION NONSPECIFIC T-WAVE ABNORMALITY- INFERIOR LEADS ABNORMAL ECG Compared to ECG 11/06/2024 13:50:51 NO SIGNIFICANT CHANGE All imaging and EKGs personally reviewed and interpreted. And unless stated otherwise agree with radiologic and cardiology interpretation. Assessment and Plan Assessment and plan (1) Pulmonary edema: Qualifiers: Chronicity: acute Qualified Code(s): J81.0 - Acute pulmonary edema Code(s): J81.1 - Chronic pulmonary edema Status: Acute (2) Pneumonia: Qualifiers: Pneumonia type: due to unspecified organism Laterality: right Lung location: unspecified part of lung Qualified Code(s): J18.9 - Pneumonia, unspecified organism Code(s): J18.9 - Pneumonia, unspecified organism Status: Acute (3) Elevated troponin: Code(s): R79.89 - Other specified abnormal findings of blood chemistry Status: Acute (4) Occasional tremors: Code(s): R25.1 - Tremor, unspecified Status: Acute (5) A-fib: Qualifiers: Atrial fibrillation type: unspecified Qualified Code(s): I48.91 - Unspecified atrial fibrillation Code(s): I48.91 - Unspecified atrial fibrillation Status: Acute (6) Chronic anticoagulation: Code(s): 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 He does have a mild white count in his reports symptoms of coughing with eating. Differential includes to mucoid pneumonia versus aspiration. Patient was started on empiric antibiotic therapy with Rocephin and azithromycin in the ER. Will continue antibiotic therapy. Blood cultures have been obtained and are pending. Will request speech therapy evaluation for bedside swallow. Will repeat CBC in a.m.. Patient had elevated troponin but troponin profile trended down and has remained flat. He is not having any chest pain. Troponin elevation is likely due to a combination of patient has chronic heart failure with possible acute component given pulmonary edema noted on CT scan of the neck is in the lung apices. The patient received 1 dose of IV Lasix. He currently appears euvolemic at the time my evaluation without JVD and was stable lower extremity edema. W The patient's last echocardiogram within our system was July 2023. Patient does follow with Dr. Luna as outpatient. Is unclear if he may have had an outpatient echo more recently. Will consult Cardiology regarding murmur and pulmonary edema. Will continue patient's home Xarelto. Will repeat electrolyte panel and monitor strict I&O's. Will hold off on further diuretic therapy. ER provider contacted [facility] where the patient follows with [facility]rology. There was some concern from the neurologist air the patient may have Parkinson's but the patient did not tolerate Sinemet. Patient does have chronic dysarthria that is worse when he 1st wakes up. A Neuro team at [place] reviewed the patient's chart and bleeds at the patient's dizziness and ataxia chronic. He had an MRI of the brain 10/29/2024 demonstrating 1 small area of abnormality which they believe was chronic changes. The patient likely had worsening ataxia and instability due to weakness from acute infection and they felt patient was stable enough to stay here for treatment of underlying illness. Patient was resumed on his own levothyroxine. Patient has been admitted as observation status. Quality VTE Prophylaxis VTE prophylaxis: pharmacologic ordered (Continue home Xarelto.) Hospitalist [facility] Advance Care Plan I have confirmed that the patient's Advanced Care Plan is present, code status is documented, or surrogate decision maker is listed in patient medical record.: Yes Medication Reconciliation I have utilized all available resources to obtain, update and review the patients current medications (includes all prescriptions, OTC, herbals, cannabis, and nutritional supplements).: Yes
[2024-11-07 05:23] LABS: Basophils Absolute Auto 0.1 K/mm3 (0.0-0.1); Basophils Percent Auto 0.5 % (0.2-1.2); Eosinophils Absolute Auto 0.2 K/mm3 (0-0.3); Eosinophils Percent Auto 1.5 % (0-4.4); Hematocrit 39.1 % (42.0-52.0); Hemoglobin 12.7 g/dL (14.0-18.0); Immature Granulocyte Absolute 0.05 K/mm3 (0.00-0.031); Immature Granulocyte Percent A 0.4 % (0-0.5); Lymphocytes Absolute Auto 1.63 K/mm3 (0.9-3.2); Lymphocytes Percent Auto 14.5 % (18.3-44.2); Mean Corpuscular HGB Conc 32.5 g/dl (32-36); Mean Corpuscular Hemoglobin 30.8 pg (26-34); Mean Corpuscular Volume 94.7 fl (80-100); Mean Platelet Volume 10.6 fl (7.4-10.4); Monocytes Absolute Auto 0.8 K/mm3 (0.1-0.6); Monocytes Percent Auto 7.5 % (2.6-8.5); Neutrophils Absolute Auto 8.5 K/mm3 (1.3-6.7); Neutrophils Percent Auto 75.6 % (45.5-73.1); Platelet Count Result 197 k/mm3 (150-375); Red Blood Count 4.13 M/mm3 (4.6-6.20); Red Cell Distribution Width 12.6 % (11.5-14.5); White Blood Count 11.2 K/mm3 (4.5-10.0)
[2024-11-07 06:00] LABS: Anion Gap 11 mmol/L (4-12); Blood Urea Nitrogen 33 mg/dL (9-20); Calcium 9.1 mg/dL (8.4-10.2); Carbon Dioxide 29 mmol/L (22-30); Chloride 101 mmol/L (98-107); Estimated CRCL calculation 40 ml/min; Estimated Glomerular Filt Rate 50; Glucose 102 mg/dL (65-110); Potassium 3.7 mmol/L (3.4-5.0); Sodium 141 mmol/L (137-145)
[2024-11-07] MEDS: LEVOTHYROXINE SODIUM 112 MCG TABLET PO (06:37)
[2024-11-07] MEDS: PYRIDOXINE HCL 50 MG TABLET 100 MG PO (09:49)
[2024-11-07] MEDS: SIMETHICONE 80 MG TAB.CHEW PO ×2 (09:49→17:00)
[2024-11-07] MEDS: ASPIRIN 81 MG CHEWABLE TABLET PO (09:49)
[2024-11-07] MEDS: FAMOTIDINE 20 MG TABLET PO (09:49)
[2024-11-07] MEDS: DOCUSATE SODIUM 100 MG CAPSULE PO (09:49)
[2024-11-07] MEDS: LORATADINE 10 MG TABLET PO (09:49)
--- NOTE | 2024-11-07 09:53 | P.PNIM_ITS ---
Progress Note: A&P Assessment and Plan (1) Pulmonary edema: Qualifiers: Chronicity: acute Qualified Code(s): J81.0 - Acute pulmonary edema Code(s): J81.1 - Chronic pulmonary edema Status: Acute (2) Pneumonia: Qualifiers: Laterality: right Lung location: unspecified part of lung Pneumonia type: due to unspecified organism Qualified Code(s): J18.9 - Pneumonia, unspecified organism Code(s): J18.9 - Pneumonia, unspecified organism Status: Acute (3) Elevated troponin: Code(s): R79.89 - Other specified abnormal findings of blood chemistry Status: Acute (4) Occasional tremors: Code(s): R25.1 - Tremor, unspecified Status: Acute (5) A-fib: Qualifiers: Atrial fibrillation type: unspecified Qualified Code(s): I48.91 - Unspecified atrial fibrillation Code(s): I48.91 - Unspecified atrial fibrillation Status: Acute (6) Chronic anticoagulation: Code(s): Z79.01 - alf (current) use of anticoagulants Status: Acute (7) Dizziness: Code(s): R42 - Dizziness and giddiness Status: Acute Plan Patient has x-ray findings concerning for pneumonia versus pulmonary edema. He does have a mild white count in his reports symptoms of coughing with eating. Differential includes to mucoid pneumonia versus aspiration. Patient was started on empiric antibiotic therapy with Rocephin and azithromycin in the ER. Will continue antibiotic therapy. Blood cultures have been obtained and are pending. Will request speech therapy evaluation for bedside swallow. Will repeat CBC in a.m.. Patient had elevated troponin but troponin profile trended down and has remained flat. He is not having any chest pain. Troponin elevation is likely due to a combination of patient has chronic heart failure with possible acute component given pulmonary edema noted on CT scan of the neck is in the lung apices. The patient received 1 dose of IV Lasix. He currently appears euvolemic at the time my evaluation without JVD and was stable lower extremity edema. W The patient's last echocardiogram within our system was July 2023. Patient does follow with Dr. Luna as outpatient. Is unclear if he may have had an outpatient echo more recently. Will consult Cardiology regarding murmur and pulmonary edema. Will continue patient's home Xarelto. Will repeat electrolyte panel and monitor strict I&O's. Will hold off on further diuretic therapy. ER provider [facility] patient follows with [facility]rology. There was some concern from the neurologist air the patient may have Parkinson's but the patient did not tolerate Sinemet. Patient does have chronic dysarthria that is worse when he 1st wakes up. A Neuro team at [place] reviewed the patient's chart and bleeds at the patient's dizziness and ataxia chronic. He had an MRI of the brain 10/29/2024 demonstrating 1 small area of abnormality which they believe was chronic changes. The patient likely had worsening ataxia and instability due to weakness from acute infection and they felt patient was stable enough to stay here for treatment of underlying illness. Patient was resumed on his own levothyroxine. Patient has been admitted as observation status. 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 Unable to tolerate carbidopa levodopa due to GI issues MRI of the brain on 10/29/2024 which showed one area of abnormality which was chronic in nature and was otherwise unremarkable Possibly his shaking is due to myoclonic jerks. ED contacted Dr. Ramsay the the neurologist who confirms the dizziness and ataxia or chronic Chronic dizziness Status post right tympanostomy tube which was placed in August by ENT at [facility] Subjective Date/time seen: 11/07/24 09:53 Interval history: Patient had episode of shaking yesterday night. Patient has a past medical history of Parkinson's which was diagnosed at [facility] and was given carbidopa levodopa but patient stopped due to GI issues. Of note patient also has tympanostomy which was placed in August by ENT at [facility] to improve his dizziness. Discussed with his daughter who reports patient had a prolonged hospitalization due to inguinal repair from August 2023 to November 2023 which included intubation, peg tube placement, colostomy. Later PEG tube was removed after his recovery. Lately patient has a neurological issue for which he follows with a neurologist at [facility]. Speech therapy is consulted for possible asp iration pneumonia. Pending barium swallow study. Review of Systems Review of Systems: 12 systems were reviewed with pertinent positives and negatives per HPI. Except as documented in the HPI, all other systems were reviewed and are negative. All systems reviewed & are unremarkable except as noted in HPI and below Constitutional: Constitutional: Reports no additional constitutional complaints Eyes: Eyes: Reports no additional eye complaints ENT: Reports system reviewed and no additional complaints, except as documented Cardiovascular: Cardiovascular: Reports no additional cardiovascular complaints Respiratory: Respiratory: Reports no additional respiratory complaints Gastrointestinal: Gastrointestinal: Reports no additional gastrointestinal complaints Musculoskeletal: Musculoskeletal: Reports no additional musculoskeletal complaints Integumentary/Breasts: Skin/Breast: Reports system reviewed and no additional complaints, except as docu Neurologic: Reports as per HPI Endocrine: Endocrine: Reports no additional endocrine complaints Hematologic/Lymphatic: Hematologic/Lymphatic: Reports no additional hematologic/lymphatic complaints Allergic/Immunologic: Allergic/Immunologic: Reports no additional allergic/immunologic complaints Exam Narrative: Weight 91.5 kg BMI 27.4 Const: General: comfortable Other: No acute distress, well-developed well-nourished, appears stated age, generalized weakness HENMT: Face/Nose/Sinus: Normal nares present Other: Head is normocephalic atraumatic, pupils are equal and reactive, extraocular movements are delayed but intact Eyes: Sclera: sclerae normal Other: Pupils are equal and reactive, extraocular movements intact but delayed, no scleral icterus Neck: Neck: supple and no JVD Other: No JVD, no lymphadenopathy, tracheostomy scar present Resp: Effort & Inspection: normal respiratory effort Auscultation: clear to auscultation bilaterally Other: Crackles at bilateral bases, frequent cough with deep inspiration Cardio: Rate: regular rate Rhythm: abnormal rhythm irregularly irregular Heart sounds: Murmur heart sound present Other: Irregularly irregular, rate controlled, 2+ bilateral radial pedal pulses, 2/6 systolic murmur GI: Auscultation: normal bowel sounds Other: Soft, nontender, nondistended, positive bowel sounds, ostomy draining in the left lower abdomen : Other: Pure wick catheter in place Skin: General skin exam: normal color Other: No pallor, non jaundice, chronic skin changes to bilateral lower extremities consistent with history of peripheral vascular disease Neuro: Other: Alert oriented to person, month, year, confused as to place, speech is slow and intermittently slurred, equal strength bilaterally but fine motor delay Extrem: Other: 4/5 coater carbon paper strength bilateral, 1+ pitting edema bilateral lower extremities Psych: Other: Pleasantly confused, cooperative, cracking jokes Objective Data Vital Signs Vital Signs: Vital Signs - 24 hr 11/06/24 14:20 11/06/24 18:53 11/06/24 20:00 Temperature Pulse Rate 93 84 Respiratory Rate 16 22 H Blood Pressure 174/89 H 145/88 H Pulse Oximetry 98 96 Oxygen Delivery Room Air 11/06/24 20:00 11/06/24 20:04 11/06/24 22:00 Temperature 97.4 F L Pulse Rate 88 70 80 Respiratory Rate 22 H Blood Pressure 137/82 Pulse Oximetry 97 Oxygen Delivery 11/06/24 23:44 11/07/24 00:00 11/07/24 00:00 Temperature 97.8 F Pulse Rate 86 65 Respiratory Rate 22 H Blood Pressure 120/70 Pulse Oximetry 97 Oxygen Delivery Room Air 11/07/24 02:00 11/07/24 04:00 11/07/24 04:15 Temperature Pulse Rate 69 74 Respiratory Rate Blood Pressure Pulse Oximetry Oxygen Delivery Room Air 11/07/24 05:21 11/07/24 06:00 11/07/24 08:09 Temperature 98 F 97.6 F Pulse Rate 86 73 78 Respiratory Rate 22 H 26 H Blood Pressure 106/45 L 111/59 L Pulse Oximetry 94 94 Oxygen Delivery Intake/Output Intake/Output: Intake & Output 11/04/24 11/05/24 11/06/24 11/07/24 23:59 23:59 23:59 23:59 Intake Total 300 845 Output Total 900 300 Balance -600 545 Meds/Results Medications: Active Medications Generic Name Dose Route Start Last Admin Trade Name Matthewq PRN Reason Stop Dose Admin Aspirin 81 mg 11/07/24 09:00 11/07/24 09:49 Aspirin 81 Mg Chewable Tablet PO 81 mg DAILY SUDEEP Administration Docusate Sodium 100 mg 11/07/24 09:00 11/07/24 09:49 Docusate Sodium 100 Mg Capsule PO 100 mg DAILY SUDEEP Administration Famotidine 20 mg 11/07/24 09:00 11/07/24 09:49 Famotidine 20 Mg Tablet PO 20 mg DAILY SUDEEP Administration Ceftriaxone Sodium 1 gm in 50 mls @ 100 mls/hr 11/07/24 12:00 Rocephin 1 Gm/Ns 50 Ml IVPB Q24H SUDEEP Azithromycin 500 mg in 250 mls @ 250 mls/hr 11/07/24 12:00 Zithromax IVPB Q24H [facility] Levothyroxine Sodium 112 mcg 11/07/24 06:30 11/07/24 06:37 Levothyroxine Sodium 112 Mcg Tablet PO 112 mcg DAILY@0630 SUDEEP Administration Loratadine 10 mg 11/07/24 09:00 11/07/24 09:49 Loratadine 10 Mg Tablet PO 10 mg DAILY SUDEEP Administration Pyridoxine HCl 100 mg 11/07/24 09:00 11/07/24 09:49 Pyridoxine Hcl 50 Mg Tablet PO 100 mg DAILY SUDEEP Administration Rivaroxaban 20 mg 11/07/24 18:00 Rivaroxaban 20 Mg Tablet PO QPM SUDEEP Simethicone 80 mg 11/07/24 09:00 11/07/24 09:49 Simethicone 80 Mg Tab.Chew PO 80 mg BID SUDEEP Administration Radiology Results: ITS Impressions Chest X-Ray 11/06/24 11:04 IMPRESSION: 1. Airspace and interstitial opacities in right mid and lower lung zones, consistent with pneumonia versus mild pulmonary edema. Head/Neck CTA 11/06/24 11:24 IMPRESSION: 1. 50% stenosis of the right carotid bulb relative to normal distal artery lumen diameter (NASCET criteria). 2. Atherosclerotic plaque with 0% stenosis of the left carotid bulb relative to normal distal artery lumen diameter. 3. Left vertebral artery is dominant with potentially minimally significant stenosis at the proximalmost and diminutive distalmost right vertebral artery. Otherwise unremarkable cerebral CT angiogram with no other hemodynamically significant stenosis, aneurysm or thrombosis. 4. Normal aging brain. No acute intracranial process or abnormally enhancing brain lesions. 5. Mild pulmonary edema in the visualized upper lungs. Labs Labs: Laboratory Results - last 24 hr 11/06/24 11/06/24 11/06/24 10:22 10:26 10:27 WBC 10.3 H RBC 4.35 L Hgb 13.5 L Hct 41.6 L MCV 95.6 MCH 31.0 MCHC 32.5 RDW 12.7 Plt Count 195 MPV 11.3 H Immature Gran % (Auto) 0.4 Neut % (Auto) 84.2 H Lymph % (Auto) 8.2 L [place] % (Auto) 5.8 Eos % (Auto) 1.1 Baso % (Auto) 0.3 Lymph # (Auto) 0.85 L [place] # (Auto) 0.6 Eos # (Auto) 0.1 Baso # (Auto) 0.0 Abs Immat Gran (auto) 0.04 H Absolute Neuts (auto) 8.7 H Absolute Nucleated RBC 0.000 Nucleated RBC % 0.0 PT 16.5 H INR 1.3 APTT 31.6 Sodium 142 Potassium 3.7 Chloride 102 Carbon Dioxide 27 Anion Gap 13 H BUN 29 H Creatinine 0.92 Estim Creat Clear Calc 58 Estimated GFR > 60 Glucose 143 H POC Capillary Glucose 143 H Lactic Acid Calcium 9.1 Total Bilirubin 0.6 AST 41 ALT 33 Alkaline Phosphatase 96 Troponin I 0.237 H* NT-Pro-B Natriuret Pep 2310 H Total Protein 8.0 Albumin 4.4 Urine Color Urine Appearance Urine pH Ur Specific [place] Urine Protein Urine Glucose (UA) Urine Ketones Ur Blood (Man) Urine Nitrate Urine Bilirubin Urine Urobilinogen Add Ur Microanalysis Leukocyte Esterase Rfl Urine RBC Urine WBC Ur Squamous Epith Cells Urine Bacteria Urine Casts Influenza A (RT-PCR) Negative Influenza B (RT-PCR) Negative RSV (RT-PCR) Negative SARS-CoV-2 RNA (RT-PCR) Negative 11/06/24 11/06/24 11/06/24 10:47 14:06 17:41 WBC RBC Hgb Hct MCV MCH MCHC RDW Plt Count MPV Immature Gran % (Auto) Neut % (Auto) Lymph % (Auto) [place] % (Auto) Eos % (Auto) Baso % (Auto) Lymph # (Auto) [place] # (Auto) Eos # (Auto) Baso # (Auto) Abs Immat Gran (auto) Absolute Neuts (auto) Absolute Nucleated RBC Nucleated RBC % PT INR APTT Sodium Potassium Chloride Carbon Dioxide Anion Gap BUN Creatinine Estim Creat Clear Calc Estimated GFR Glucose POC Capillary Glucose Lactic Acid 2.2 H 2.4 H Calcium Total Bilirubin AST ALT Alkaline Phosphatase Troponin I 0.207 H* 0.207 H* NT-Pro-B Natriuret Pep Total Protein Albumin Urine Color Yellow Urine Appearance Clear Urine pH 7.0 Ur Specific [place] 1.016 Urine Protein 2+ H Urine Glucose (UA) Trace H Urine Ketones Negative Ur Blood (Man) Negative Urine Nitrate Negative Urine Bilirubin Negative Urine Urobilinogen 0.2 Add Ur Microanalysis Reviewed Leukocyte Esterase Rfl Negative Urine RBC 11-20 H Urine WBC 0-5 Ur Squamous Epith Cells None seen Urine Bacteria None seen Urine Casts 0-2 Influenza A (RT-PCR) Influenza B (RT-PCR) RSV (RT-PCR) SARS-CoV-2 RNA (RT-PCR) 11/07/24 05:13 WBC 11.2 H RBC 4.13 L Hgb 12.7 L Hct 39.1 L MCV 94.7 MCH 30.8 MCHC 32.5 RDW 12.6 Plt Count 197 MPV 10.6 H Immature Gran % (Auto) 0.4 Neut % (Auto) 75.6 H Lymph % (Auto) 14.5 L [place] % (Auto) 7.5 Eos % (Auto) 1.5 Baso % (Auto) 0.5 Lymph # (Auto) 1.63 [place] # (Auto) 0.8 H Eos # (Auto) 0.2 Baso # (Auto) 0.1 Abs Immat Gran (auto) 0.05 H Absolute Neuts (auto) 8.5 H Absolute Nucleated RBC 0.000 Nucleated RBC % 0.0 PT INR APTT Sodium 141 Potassium 3.7 Chloride 101 Carbon Dioxide 29 Anion Gap 11 BUN 33 H Creatinine 1.35 H Estim Creat Clear Calc 40 Estimated GFR 50 L Glucose 102 POC Capillary Glucose Lactic Acid Calcium 9.1 Total Bilirubin AST ALT Alkaline Phosphatase Troponin I NT-Pro-B Natriuret Pep Total Protein Albumin Urine Color Urine Appearance Urine pH Ur Specific [place] Urine Protein Urine Glucose (UA) Urine Ketones Ur Blood (Man) Urine Nitrate Urine Bilirubin Urine Urobilinogen Add Ur Microanalysis Leukocyte Esterase Rfl Urine RBC Urine WBC Ur Squamous Epith Cells Urine Bacteria Urine Casts Influenza A (RT-PCR) Influenza B (RT-PCR) RSV (RT-PCR) SARS-CoV-2 RNA (RT-PCR) Quality VTE Prophylaxis VTE prophylaxis: pharmacologic ordered (Continue home Xarelto.) Hospitalist MIPS Advance Care Plan I have confirmed that the patient's Advanced Care Plan is present, code status is documented, or surrogate decision maker is listed in patient medical record.: Yes Medication Reconciliation I have utilized all available resources to obtain, update and review the patients current medications (includes all prescriptions, OTC, herbals, cannabis, and nutritional supplements).: Yes
--- NOTE | 2024-11-07 10:54 | PCSTNOTE ---
Please refer to the Bedside Swallow Evaluation in the EMR. Please note, silent aspiration cannot be ruled out at bedside.
--- NOTE | 2024-11-07 11:33 | P.CONCA_ITS ---
Assessment and Plan Assessment and plan (1) Hx of CABG: Code(s): Z95.1 - Presence of aortocoronary bypass graft Status: Chronic (2) A-fib: Qualifiers: Atrial fibrillation type: unspecified Qualified Code(s): I48.91 - Unspecified atrial fibrillation Code(s): I48.91 - Unspecified atrial fibrillation Status: Acute Plan This is an 84-year-old man with the above-mentioned history of ischemic heart disease, 15 years status post successful surgical revascularization also with at least 2 year history of chronic atrial fibrillation. His recent abuse hospitalized last evening was some very unusual involuntary shaking while he was lying in bed. Does not seem that this was a seizure event as he was completely aware of what was going on. He has not had any cardiac symptoms. His troponin levels are slightly elevated, not in a pattern indicative of acute myocardial injury. No further assessment of that is necessary in my opinion. He does have a cardiac murmur indicating that he has asymptomatic aortic valve stenosis. Again this clearly has nothing to do with why he was hospitalized I will see that an echocardiogram is done in the office prior to his next appointment with Dr. Luna. This does not have to be done in the hospital and does not have to prolong his stay in the hospital. Moises Pettit MD [facility] History of Present Illness History of Present Illness Consult date/time: 11/07/24 11:33 Reason For Visit: Pneumonia Narrative: This is a very pleasant 84-year-old man with a history of coronary artery disease and chronic atrial fibrillation with seeing at the request of the hospitalist because of an elevation in his troponin level and because of a cardiac murmur. He is not known to me prior to this encounter but he has been followed in our office for a number of years initially by Dr. Diaz and following her re residential by Dr. Luna. The patient was in his usual state of fairly good health when last evening he was noticing his bed that he was shaking uncontrollably and he was holding onto the bed rail to keep from falling onto the floor. He was aware of what was going on and did not have any other distress specifically denying any sense of chest pain palpitations orthopnea PND or edema. He says that his finally came into his room to check on him he was calling out to her but she did not hear him. She called 911 and EMS arrived and brought him to the hospital. He thinks altogether this shaking lasted for about 20 minutes or so. It has not happened prior to then were since then. He was alert and aware of what was going on. Since this stopped he does not have any complaints. His cardiac history includes coronary artery disease with surgical myocardial revascularization back in 2009. He received an YULIANA graft to his LAD, this is a sequential radial artery graft to the obtuse marginal and diagonal. He is known to have vigorous left ventricular systolic function by previous echo. He will has had atrial fibrillation since at least January of 2023. From reviewing his chart he was asymptomatic basically unaware of this. He was on metoprolol and his rate response to atrial fib with slow for that reason the beta-sheng was stopped. There was no recommendation to or attempt to restore sinus rhythm. He is anticoagulated with Xarelto the notes indicate he has disputed the necessity of this in the office. He also has dyslipidemia which is untreated because of his intolerance to statins and desire not to receive any additional anti lipid medications. He is otherwise feeling well and does not have any active complaints at this time. Review of Systems 2 Constitutional: Constitutional: Reports no additional constitutional complaints Eyes: Eyes: Reports no additional eye complaints ENT: Reports system reviewed and no additional complaints, except as documented Cardiovascular: Cardiovascular: Reports no additional cardiovascular complaints Respiratory: Respiratory: Reports no additional respiratory complaints Gastrointestinal: Gastrointestinal: Reports no additional gastrointestinal complaints Musculoskeletal: Musculoskeletal: Reports no additional musculoskeletal complaints Integumentary/Breasts: Skin/Breast: Reports system reviewed and no additional complaints, except as docu Neurologic: Reports as per HPI Endocrine: Endocrine: Reports no additional endocrine complaints Hematologic/Lymphatic: Hematologic/Lymphatic: Reports no additional hematologic/lymphatic complaints Allergic/Immunologic: Allergic/Immunologic: Reports no additional allergic/immunologic complaints [facility] Past Medical History Medical History (Updated 11/07/24 @ 05:59 by Kenzie Chiu DO) Grade II diastolic dysfunction History of open sigmoidectomy Vitamin D deficiency, unspecified Paroxysmal atrial fibrillation Brain bleed Prostate CA Basal cell carcinoma Hepatitis B Prediabetes Hypothyroid Constipation GERD (gastroesophageal reflux disease) Hyperlipidemia Hypertension CAD (coronary artery disease) Myocardial infarct Seizures Surgical History Surgical History (Updated 11/07/24 @ 05:35 by Kenzie Chiu DO) S/P hernia repair 08/02/2023 had open repair of right inguinal hernia due to 70% of the patient's small bowel contents being within the hernia, complicated by postoperative abscess requiring percutaneous drain, 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 The patient had postoperative shock and remained intubated for a prolonged period requiring tracheostomy and transfer to LTAC 10/09/2023 S/P percutaneous endoscopic gastrostomy (PEG) tube placement (09/25/23) With subsequent removal History of tracheostomy 09/13/2023 with subsequent removal History of colostomy Status post Willy procedure 09/04/23 Extensive (2 1/2 hrs) adhesiolysis, sigmoidectomy with end descending colostomy and Willy procedure Hx of local excision of skin lesion H/O arthroscopy lt knee H/O prostatectomy Hx of colonoscopy 2012 - Dr. Yen Hx of CABG 11/2009 - triple bypass surgery at [facility] Family History Family History Father Malignant neoplasm of prostate Sibling Ovarian cancer Mother , epilepsy No problems noted. Sibling No problems noted. Social History Social History (Updated 11/07/24 @ 05:38 by Kenzie Chiu DO) Social History: Patient lives with his Cherie. He has a distant history of smoking a 12 pack per year history. He used to rarely drinks alcohol and only in moderation. Code status: Full code Surrogate decision maker: Sid () Smoking packs per day: 2 Smoking cigarettes per day: 40.0 Years smoked: 12 Smoking pack-years: 24.00 Smoking status: Former smoker Tobacco type: cigarettes Second hand tobacco smoke exposure: No Smoking end date: 09/23/70 Alcohol intake: never Alcohol use details: RARELY - 1/2 CASE BEER/YR Substance use: never Substance use type: does not use Do You Feel Safe in your Home?: Yes Lack of Transportation: No Lack of Food: Never True Current Housing: I Have Housing Concerned About Future Housing: No Difficulty Paying Gas/Electric Bills: No Difficulty Paying for Meds: No Currently Unemployed: No Education: High School Diploma/GED Difficulty w/ Childcare or Family Care: No Living arrangements: with family Occupation/Education: retired 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[employer] Gender identity (if verbalized by the patient): Male Spiritual care concerns: No Meds Home Medications and Allergies Home Medications ?Medication ?Instructions ?Recorded ?Confirmed ?Type loratadine 10 mg tablet (Claritin) 10 mg PO DAILY 05/15/22 11/06/24 History rivaroxaban 20 mg tablet (Xarelto) 20 mg PO QPM 07/30/23 11/06/24 History simethicone 62.5 mg oral strips 1 strip PO BID 12/02/23 11/06/24 History (Gas-X) aspirin 81 mg chewable tablet 1 tablet PO DAILY 01/06/24 11/06/24 History docusate sodium 100 mg capsule 100 mg PO DAILY 03/25/24 11/06/24 History (Stool Softener) pyridoxine (vitamin B6) 100 mg 100 mg PO DAILY 03/25/24 11/06/24 History tablet famotidine 20 mg tablet 20 mg PO DAILY #90 tabs 09/21/24 11/06/24 Rx nystatin 100,000 unit/gram topical 1 applic topical TID #60 grams 10/26/24 11/06/24 Rx powder levothyroxine 112 mcg tablet 112 mcg PO DAILY@0630 11/06/24 11/06/24 History Allergies Allergy/AdvReac Type Severity Reaction Status Date / Time [id number] Reductase Allergy Unknown Joint Pain Verified 11/06/24 10:13 Inhibitor (Efucqjy-Rfg-Erm & MUSCLE Reductase Inhibitor) WEAKNESS diphenhydramine (From AdvReac Agitated Verified 11/06/24 10:13 Benadryl) halobetasol AdvReac Rash Verified 09/03/24 10:25 quetiapine (From Seroquel) AdvReac Agitated Verified 11/06/24 10:13 Vital Signs Vital Signs - 24 hr 11/06/24 14:20 11/06/24 18:53 11/06/24 20:00 Temperature Pulse Rate 93 84 Respiratory Rate 16 22 H Blood Pressure 174/89 H 145/88 H Pulse Oximetry 98 96 Oxygen Delivery Room Air 11/06/24 20:00 11/06/24 20:04 11/06/24 22:00 Temperature 36.3 C L Pulse Rate 88 70 80 Respiratory Rate 22 H Blood Pressure 137/82 Pulse Oximetry 97 Oxygen Delivery 11/06/24 23:44 11/07/24 00:00 11/07/24 00:00 Temperature 36.6 C Pulse Rate 86 65 Respiratory Rate 22 H Blood Pressure 120/70 Pulse Oximetry 97 Oxygen Delivery Room Air 11/07/24 02:00 11/07/24 04:00 11/07/24 04:15 Temperature Pulse Rate 69 74 Respiratory Rate Blood Pressure Pulse Oximetry Oxygen Delivery Room Air 11/07/24 05:21 11/07/24 06:00 11/07/24 08:00 Temperature 36.6 C Pulse Rate 86 73 78 Respiratory Rate 22 H 26 H Blood Pressure 106/45 L Pulse Oximetry 94 94 Oxygen Delivery Room Air 11/07/24 08:00 11/07/24 08:09 11/07/24 10:00 Temperature 36.4 C Pulse Rate 78 78 78 Respiratory Rate 26 H Blood Pressure 111/59 L Pulse Oximetry 94 Oxygen Delivery Exam 2 Narrative: Pleasant tall gentleman appearing his stated age Const: General: comfortable HENMT: Face/Nose/Sinus: Normal nares present Eyes: Sclera: sclerae normal Neck: Neck: supple and no JVD Resp: Effort & Inspection: normal respiratory effort Auscultation: clear to auscultation bilaterally Cardio: Rate: regular rate Rhythm: abnormal rhythm irregularly irregular Heart sounds: Murmur heart sound present Other: Grade 2/6 crescendo decrescendo murmur best audible at the right upper sternal border no diastolic murmur GI: GI Palp: Yes Soft to palpation Auscultation: normal bowel sounds Skin: General skin exam: normal color Neuro: Other: Alert and oriented x3 Extrem: Other: Normal perfusion Results Labs and Meds 11/07/24 05:13 11/07/24 05:13 Lab results: Cardiac Enzymes 11/06/24 11/06/24 Range/Units 14:06 17:41 Troponin I 0.207 H* 0.207 H* (0.000-0.034) ng/mL CBC 11/07/24 Range/Units 05:13 WBC 11.2 H (4.5-10.0) K/mm3 RBC 4.13 L (4.6-6.20) M/mm3 Hgb 12.7 L (14.0-18.0) g/dL Hct 39.1 L (42.0-52.0) % Plt Count 197 (150-375) k/mm3 Lymph # (Auto) 1.63 (0.9-3.2) K/mm3 [place] # (Auto) 0.8 H (0.1-0.6) K/mm3 Eos # (Auto) 0.2 (0-0.3) K/mm3 Baso # (Auto) 0.1 (0.0-0.1) K/mm3 Comprehensive Metabolic Panel 11/07/24 Range/Units 05:13 Sodium 141 (137-145) mmol/L Potassium 3.7 (3.4-5.0) mmol/L Chloride 101 (98-107) mmol/L Carbon Dioxide 29 (22-30) mmol/L BUN 33 H (9-20) mg/dL Creatinine 1.35 H (0.7-1.3) mg/dL Glucose 102 (65-110) mg/dL Calcium 9.1 (8.4-10.2) mg/dL Intake and Output 11/06/24 11/07/24 11/07/24 23:59 07:59 15:59 Intake Total 250 845 Output Total 300 Balance -50 845 Intake: Oral 250 845 Output: Urine 300 Patient Weight 11/07/24 23:59 Weight 91.5 kg
[2024-11-07] MEDS: AZITHROMYCIN 500 MG/NS 250 ML 500 MG/250 ML BAG 250 MG IVPB (14:29)
[2024-11-07] MEDS: RIVAROXABAN 20 MG TABLET PO (17:00)
[2024-11-08] VITALS (11 sets, daily range): BP systolic 138–148; BP diastolic 68–82; PULSE 63–87; RESP 20–22; TEMP 36.6; O2SAT 96–98
[2024-11-08 05:06] LABS: Hematocrit 40.6 % (42.0-52.0); Hemoglobin 13.1 g/dL (14.0-18.0); Mean Corpuscular HGB Conc 32.3 g/dl (32-36); Mean Corpuscular Hemoglobin 31.2 pg (26-34); Mean Corpuscular Volume 96.7 fl (80-100); Mean Platelet Volume 10.5 fl (7.4-10.4); Platelet Count Result 203 k/mm3 (150-375); Red Cell Distribution Width 12.8 % (11.5-14.5); White Blood Count 8.9 K/mm3 (4.5-10.0)
[2024-11-08 05:18] LABS: Alanine Aminotransferase 23 U/L (6-50); Albumin Level 3.7 g/dL (3.5-5.1); Alkaline Phosphatase 84 U/L (38-126); Anion Gap 8 mmol/L (4-12); Aspartate Amino Transferase 25 U/L (17-59); Bilirubin,Total 0.6 mg/dL (0.2-1.3); Blood Urea Nitrogen 36 mg/dL (9-20); Carbon Dioxide 30 mmol/L (22-30); Chloride 103 mmol/L (98-107); Estimated CRCL calculation 40 ml/min; Estimated Glomerular Filt Rate 50; Glucose 105 mg/dL (65-110); Potassium 4.1 mmol/L (3.4-5.0); Sodium 141 mmol/L (137-145)
[2024-11-08] MEDS: LEVOTHYROXINE SODIUM 112 MCG TABLET PO (06:54)
[2024-11-08] MEDS: LORATADINE 10 MG TABLET PO (08:20)
[2024-11-08] MEDS: SIMETHICONE 80 MG TAB.CHEW PO ×2 (08:20→17:16)
[2024-11-08] MEDS: ASPIRIN 81 MG CHEWABLE TABLET PO (08:20)
[2024-11-08] MEDS: DOCUSATE SODIUM 100 MG CAPSULE PO (08:20)
[2024-11-08] MEDS: FAMOTIDINE 20 MG TABLET PO (08:20)
[2024-11-08] MEDS: PYRIDOXINE HCL 50 MG TABLET 100 MG PO (08:20)
--- NOTE | 2024-11-08 11:46 | PM.IMPN ---
Progress Note: A&P Assessment and Plan (1) Pulmonary edema: Qualifiers: Chronicity: acute Qualified Code(s): J81.0 - Acute pulmonary edema Code(s): J81.1 - Chronic pulmonary edema Status: Acute (2) Pneumonia: Qualifiers: Laterality: right Lung location: unspecified part of lung Pneumonia type: due to unspecified organism Qualified Code(s): J18.9 - Pneumonia, unspecified organism Code(s): J18.9 - Pneumonia, unspecified organism Status: Acute (3) Elevated troponin: Code(s): R79.89 - Other specified abnormal findings of blood chemistry Status: Acute (4) Occasional tremors: Code(s): R25.1 - Tremor, unspecified Status: Acute (5) A-fib: Qualifiers: Atrial fibrillation type: unspecified Qualified Code(s): I48.91 - Unspecified atrial fibrillation Code(s): I48.91 - Unspecified atrial fibrillation Status: Acute (6) Chronic anticoagulation: Code(s): Z79.01 - care home (current) use of anticoagulants Status: Acute (7) Dizziness: Code(s): R42 - Dizziness and giddiness Status: Acute Plan Patient has x-ray findings concerning for pneumonia versus pulmonary edema. He does have a mild white count in his reports symptoms of coughing with eating. Differential includes to mucoid pneumonia versus aspiration. Patient was started on empiric antibiotic therapy with Rocephin and azithromycin in the ER. Will continue antibiotic therapy. Blood cultures have been obtained and are pending. Will request speech therapy evaluation for bedside swallow. Will repeat CBC in a.m.. Patient had elevated troponin but troponin profile trended down and has remained flat. He is not having any chest pain. Troponin elevation is likely due to a combination of patient has chronic heart failure with possible acute component given pulmonary edema noted on CT scan of the neck is in the lung apices. The patient received 1 dose of IV Lasix. He currently appears euvolemic at the time my evaluation without JVD and was stable lower extremity edema. W The patient's last echocardiogram within our system was July 2023. Patient does follow with Dr. Luna as outpatient. Is unclear if he may have had an outpatient echo more recently. Will consult Cardiology regarding murmur and pulmonary edema. Will continue patient's home Xarelto. Will repeat electrolyte panel and monitor strict I&O's. Will hold off on further diuretic therapy. ER provider contacted [facility] where the patient follows with Neurology. There was some concern from the neurologist air the patient may have Parkinson's but the patient did not tolerate Sinemet. Patient does have chronic dysarthria that is worse when he 1st wakes up. A Neuro team at [place] reviewed the patient's chart and bleeds at the patient's dizziness and ataxia chronic. He had an MRI of the brain 10/29/2024 demonstrating 1 small area of abnormality which they believe was chronic changes. The patient likely had worsening ataxia and instability due to weakness from acute infection and they felt patient was stable enough to stay here for treatment of underlying illness. Patient was resumed on his own levothyroxine. Patient has been admitted as observation status. Chest pain/A.Fib s/p surgical revascularization (15 years ago) Mildly elevated Troponin, possible Type 2 MD asymptomatic aortic valve stenosis Cardiology evaluated and signed off Xarelto 20 mg PO QD PNA Continue Ceftriaxone and Azithromycin Influenza RSV COVID negative Possible aspiration PNA Consulted Parkinson Follows up with outpatient Neurology at [facility] Unable to tolerate carbidopa levodopa due to GI issues MRI of the brain on 10/29/2024 which showed one area of abnormality which was chronic in nature and was otherwise unremarkable Possibly his shaking is due to myoclonic jerks. ED contacted Dr. Ramsay the the neurologist who confirms the dizziness and ataxia or chronic Chronic dizziness Status post right tympanostomy tube which was placed in August by ENT at [facility] Date/time seen: 11/08/24 11:46 Interval history: Consulted Neurology. Pending MBS Review of Systems Review of Systems: 12 systems were reviewed with pertinent positives and negatives per HPI. Except as documented in the HPI, all other systems were reviewed and are negative. All systems reviewed & are unremarkable except as noted in HPI and below Constitutional: Constitutional: Reports no additional constitutional complaints Eyes: Eyes: Reports no additional eye complaints ENT: Reports system reviewed and no additional complaints, except as documented Cardiovascular: Cardiovascular: Reports no additional cardiovascular complaints Respiratory: Respiratory: Reports no additional respiratory complaints Gastrointestinal: Gastrointestinal: Reports no additional gastrointestinal complaints Musculoskeletal: Musculoskeletal: Reports no additional musculoskeletal complaints Integumentary/Breasts: Skin/Breast: Reports system reviewed and no additional complaints, except as docu Neurologic: Reports as per HPI Endocrine: Endocrine: Reports no additional endocrine complaints Hematologic/Lymphatic: Hematologic/Lymphatic: Reports no additional hematologic/lymphatic complaints Allergic/Immunologic: Allergic/Immunologic: Reports no additional allergic/immunologic complaints Exam Narrative: Weight 91.5 kg BMI 27.4 Const: General: comfortable Other: No acute distress, well-developed well-nourished, appears stated age, generalized weakness HENMT: Face/Nose/Sinus: Normal nares present Other: Head is normocephalic atraumatic, pupils are equal and reactive, extraocular movements are delayed but intact Eyes: Sclera: sclerae normal Other: Pupils are equal and reactive, extraocular movements intact but delayed, no scleral icterus Neck: Neck: supple and no JVD Other: No JVD, no lymphadenopathy, tracheostomy scar present Resp: Effort & Inspection: normal respiratory effort Auscultation: clear to auscultation bilaterally Other: Crackles at bilateral bases, frequent cough with deep inspiration Cardio: Rate: regular rate Rhythm: abnormal rhythm irregularly irregular Heart sounds: Murmur heart sound present Other: Irregularly irregular, rate controlled, 2+ bilateral radial pedal pulses, 2/6 systolic murmur GI: Auscultation: normal bowel sounds Other: Soft, nontender, nondistended, positive bowel sounds, ostomy draining in the left lower abdomen : Other: Pure wick catheter in place Skin: General skin exam: normal color Other: No pallor, non jaundice, chronic skin changes to bilateral lower extremities consistent with history of peripheral vascular disease Neuro: Other: Alert oriented to person, month, year, confused as to place, speech is slow and intermittently slurred, equal strength bilaterally but fine motor delay Extrem: Other: 4/5 graphics intern strength bilateral, 1+ pitting edema bilateral lower extremities Psych: Other: Pleasantly confused, cooperative, cracking jokes Objective Data Vital Signs Vital Signs: Vital Signs - 24 hr 11/07/24 12:00 11/07/24 12:00 11/07/24 12:05 Temperature 98.6 F Pulse Rate 94 94 94 Respiratory Rate 16 16 Blood Pressure 118/71 Pulse Oximetry 95 95 Oxygen Delivery Room Air 11/07/24 12:51 11/07/24 16:04 11/07/24 20:00 Temperature 97.9 F Pulse Rate 94 65 78 Respiratory Rate 22 H Blood Pressure 129/86 Pulse Oximetry 96 Oxygen Delivery 11/07/24 21:30 11/07/24 21:33 11/07/24 22:00 Temperature 98.3 F Pulse Rate 70 83 Respiratory Rate 22 H Blood Pressure 142/64 H Pulse Oximetry 97 Oxygen Delivery Room Air 11/07/24 23:22 11/08/24 00:00 11/08/24 00:15 Temperature 98.3 F Pulse Rate 77 83 Respiratory Rate 22 H Blood Pressure 134/91 H Pulse Oximetry 98 Oxygen Delivery Room Air 11/08/24 02:00 11/08/24 04:00 11/08/24 04:30 Temperature Pulse Rate 82 87 Respiratory Rate Blood Pressure Pulse Oximetry Oxygen Delivery Room Air 11/08/24 05:38 11/08/24 06:00 11/08/24 08:00 Temperature 97.9 F 97.9 F Pulse Rate 78 81 71 Respiratory Rate 22 H 20 Blood Pressure 148/82 H 144/74 H Pulse Oximetry 96 98 Oxygen Delivery 11/08/24 08:00 11/08/24 08:00 11/08/24 10:00 Temperature Pulse Rate 82 74 Respiratory Rate Blood Pressure Pulse Oximetry Oxygen Delivery Room Air Intake/Output Intake/Output: Intake & Output 11/05/24 11/06/24 11/07/24 11/08/24 23:59 23:59 23:59 23:59 Intake Total 300 2252 110 Output Total 900 900 400 Balance -600 1352 -290 Meds/Results Medications: Active Medications Generic Name Dose Route Start Last Admin Trade Name Matthewq PRN Reason Stop Dose Admin Aspirin 81 mg 11/07/24 09:00 11/08/24 08:20 Aspirin 81 Mg Chewable Tablet PO 81 mg DAILY SUDEEP Administration Docusate Sodium 100 mg 11/07/24 09:00 11/08/24 08:20 Docusate Sodium 100 Mg Capsule PO 100 mg DAILY SUDEEP Administration Famotidine 20 mg 11/07/24 09:00 11/08/24 08:20 Famotidine 20 Mg Tablet PO 20 mg DAILY SUDEEP Administration Ceftriaxone Sodium 1 gm in 50 mls @ 100 mls/hr 11/07/24 12:00 11/07/24 14:30 Rocephin 1 Gm/Ns 50 Ml IVPB 100 mls/hr Q24H SUDEEP Administration Azithromycin 500 mg in 250 mls @ 250 mls/hr 11/07/24 12:00 11/07/24 14:29 Zithromax IVPB 250 mls/hr Q24H SUDEEP Administration Levothyroxine Sodium 112 mcg 11/07/24 06:30 11/08/24 06:54 Levothyroxine Sodium 112 Mcg Tablet PO 112 mcg DAILY@0630 SUDEEP Administration Loratadine 10 mg 11/07/24 09:00 11/08/24 08:20 Loratadine 10 Mg Tablet PO 10 mg DAILY SUDEEP Administration Pyridoxine HCl 100 mg 11/07/24 09:00 11/08/24 08:20 Pyridoxine Hcl 50 Mg Tablet PO 100 mg DAILY SUDEEP Administration Rivaroxaban 20 mg 11/07/24 18:00 11/07/24 17:00 Rivaroxaban 20 Mg Tablet PO 20 mg QPM SUDEEP Administration Simethicone 80 mg 11/07/24 09:00 11/08/24 08:20 Simethicone 80 Mg Tab.Chew PO 80 mg BID SUDEEP Administration Radiology Results: ITS Impressions Chest X-Ray 11/06/24 11:04 IMPRESSION: 1. Airspace and interstitial opacities in right mid and lower lung zones, consistent with pneumonia versus mild pulmonary edema. Head/Neck CTA 11/06/24 11:24 IMPRESSION: 1. 50% stenosis of the right carotid bulb relative to normal distal artery lumen diameter (NASCET criteria). 2. Atherosclerotic plaque with 0% stenosis of the left carotid bulb relative to normal distal artery lumen diameter. 3. Left vertebral artery is dominant with potentially minimally significant stenosis at the proximalmost and diminutive distalmost right vertebral artery. Otherwise unremarkable cerebral CT angiogram with no other hemodynamically significant stenosis, aneurysm or thrombosis. 4. Normal aging brain. No acute intracranial process or abnormally enhancing brain lesions. 5. Mild pulmonary edema in the visualized upper lungs. Labs Labs: Laboratory Results - last 24 hr 11/08/24 04:52 WBC 8.9 RBC 4.20 L Hgb 13.1 L Hct 40.6 L MCV 96.7 MCH 31.2 MCHC 32.3 RDW 12.8 Plt Count 203 MPV 10.5 H Sodium 141 Potassium 4.1 Chloride 103 Carbon Dioxide 30 Anion Gap 8 BUN 36 H Creatinine 1.36 H Estim Creat Clear Calc 40 Estimated GFR 50 L Glucose 105 Calcium 9.0 Total Bilirubin 0.6 AST 25 ALT 23 Alkaline Phosphatase 84 Total Protein 7.0 Albumin 3.7 Quality VTE Prophylaxis VTE prophylaxis: pharmacologic ordered (Continue home Xarelto.) Hospitalist [facility] Advance Care Plan I have confirmed that the patient's Advanced Care Plan is present, code status is documented, or surrogate decision maker is listed in patient medical record.: Yes Medication Reconciliation I have utilized all available resources to obtain, update and review the patients current medications (includes all prescriptions, OTC, herbals, cannabis, and nutritional supplements).: Yes
[2024-11-08] MEDS: AZITHROMYCIN 500 MG/NS 250 ML 500 MG/250 ML BAG 250 MG IVPB (12:35)
[2024-11-08] MEDS: RIVAROXABAN 20 MG TABLET PO (17:16)
[2024-11-09] VITALS (10 sets, daily range): BP systolic 115–172; BP diastolic 73–96; PULSE 58–87; RESP 16–20; TEMP 36.1–36.6; O2SAT 97–98
--- NOTE | 2024-11-09 01:14 | PC.NURSE ---
This patient, Omar Ryan, was transferred to [facility] on 11/09/24 at 0105. Personal belongings sent with patient. Report given to Josie. Appropriate documentation sent with patient.
[2024-11-09] MEDS: LEVOTHYROXINE SODIUM 112 MCG TABLET PO (05:55)
[2024-11-09 06:15] LABS: Mean Corpuscular HGB Conc 32.5 g/dl (32-36); Mean Corpuscular Hemoglobin 30.7 pg (26-34); Mean Corpuscular Volume 94.3 fl (80-100); Mean Platelet Volume 10.5 fl (7.4-10.4); Platelet Count Result 221 k/mm3 (150-375); Red Blood Count 4.24 M/mm3 (4.6-6.20); Red Cell Distribution Width 12.5 % (11.5-14.5)
[2024-11-09 06:27] LABS: Alanine Aminotransferase 24 U/L (6-50); Albumin Level 3.8 g/dL (3.5-5.1); Alkaline Phosphatase 82 U/L (38-126); Anion Gap 11 mmol/L (4-12); Aspartate Amino Transferase 24 U/L (17-59); Bilirubin,Total 0.7 mg/dL (0.2-1.3); Blood Urea Nitrogen 25 mg/dL (9-20); Calcium 9.3 mg/dL (8.4-10.2); Carbon Dioxide 27 mmol/L (22-30); Chloride 103 mmol/L (98-107); Estimated CRCL calculation 46 ml/min; Estimated Glomerular Filt Rate 59; Glucose 98 mg/dL (65-110); Potassium 3.7 mmol/L (3.4-5.0); Sodium 141 mmol/L (137-145)
--- NOTE | 2024-11-09 07:39 | P.PNIM_ITS ---
Progress Note: A&P Assessment and Plan (1) Pulmonary edema: Qualifiers: Chronicity: acute Qualified Code(s): J81.0 - Acute pulmonary edema Code(s): J81.1 - Chronic pulmonary edema Status: Acute (2) Pneumonia: Qualifiers: Laterality: right Lung location: unspecified part of lung Pneumonia type: due to unspecified organism Qualified Code(s): J18.9 - Pneumonia, unspecified organism Code(s): J18.9 - Pneumonia, unspecified organism Status: Acute (3) Elevated troponin: Code(s): R79.89 - Other specified abnormal findings of blood chemistry Status: Acute (4) Occasional tremors: Code(s): R25.1 - Tremor, unspecified Status: Acute (5) A-fib: Qualifiers: Atrial fibrillation type: unspecified Qualified Code(s): I48.91 - Unspecified atrial fibrillation Code(s): I48.91 - Unspecified atrial fibrillation Status: Acute (6) Chronic anticoagulation: Code(s): Z79.01 - detention (current) use of anticoagulants Status: Acute (7) Dizziness: Code(s): R42 - Dizziness and giddiness Status: Acute Plan Patient has x-ray findings concerning for pneumonia versus pulmonary edema. He does have a mild white count in his reports symptoms of coughing with eating. Differential includes to mucoid pneumonia versus aspiration. Patient was started on empiric antibiotic therapy with Rocephin and azithromycin in the ER. Will continue antibiotic therapy. Blood cultures have been obtained and are pending. Will request speech therapy evaluation for bedside swallow. Will repeat CBC in a.m.. Patient had elevated troponin but troponin profile trended down and has remained flat. He is not having any chest pain. Troponin elevation is likely due to a combination of patient has chronic heart failure with possible acute component given pulmonary edema noted on CT scan of the neck is in the lung apices. The patient received 1 dose of IV Lasix. He currently appears euvolemic at the time my evaluation without JVD and was stable lower extremity edema. W The patient's last echocardiogram within our system was July 2023. Patient does follow with Dr. Luna as outpatient. Is unclear if he may have had an outpatient echo more recently. Will consult Cardiology regarding murmur and pulmonary edema. Will continue patient's home Xarelto. Will repeat electrolyte panel and monitor strict I&O's. Will hold off on further diuretic therapy. ER provider contacted [facility] patient follows with [facility]rology. There was some concern from the neurologist air the patient may have Parkinson's but the patient did not tolerate Sinemet. Patient does have chronic dysarthria that is worse when he 1st wakes up. A Neuro team at [facility] reviewed the patient's chart and bleeds at the patient's dizziness and ataxia chronic. He had an MRI of the brain 10/29/2024 demonstrating 1 small area of abnormality which they believe was chronic changes. The patient likely had worsening ataxia and instability due to weakness from acute infection and they felt patient was stable enough to stay here for treatment of underlying illness. Patient was resumed on his own levothyroxine. Patient has been admitted as observation status. 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 Consult GI. Family is concerned about placing PEG tube. Currently patient is NPO. Started .45NSS/D5W Parkinson Follows up with outpatient Neurology at [facility] Unable to tolerate carbidopa levodopa due to GI issues MRI of the brain on 10/29/2024 which showed one area of abnormality which was chronic in nature and was otherwise unremarkable Possibly his shaking is due to myoclonic jerks. ED contacted Dr. 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 Consult GI. Family is concerned about placing PEG tube. Currently patient is NPO.Discussed with GI. Will place NG tube and holding Xarelto for PEG tube placement.Patient will be referred to as per request as OP for Zenker Diverticulum repair Review of Systems Review of Systems: 12 systems were reviewed with pertinent positives and negatives per HPI. Except as documented in the HPI, all other systems were reviewed and are negative. All systems reviewed & are unremarkable except as noted in HPI and below Constitutional: Constitutional: Reports no additional constitutional complaints Eyes: Eyes: Reports no additional eye complaints ENT: Reports system reviewed and no additional complaints, except as documented Cardiovascular: Cardiovascular: Reports no additional cardiovascular complaints Respiratory: Respiratory: Reports no additional respiratory complaints Gastrointestinal: Gastrointestinal: Reports no additional gastrointestinal complaints Musculoskeletal: Musculoskeletal: Reports no additional musculoskeletal complaints Integumentary/Breasts: Skin/Breast: Reports system reviewed and no additional complaints, except as docu Neurologic: Reports as per HPI Endocrine: Endocrine: Reports no additional endocrine complaints Hematologic/Lymphatic: Hematologic/Lymphatic: Reports no additional hematologic/lymphatic complaints Allergic/Immunologic: Allergic/Immunologic: Reports no additional allergic/immunologic complaints Exam Narrative: Weight 91.5 kg BMI 27.4 Const: General: comfortable Other: No acute distress, well-developed well-nourished, appears stated age, generalized weakness HENMT: Face/Nose/Sinus: Normal nares present Other: Head is normocephalic atraumatic, pupils are equal and reactive, extraocular movements are delayed but intact Eyes: Sclera: sclerae normal Other: Pupils are equal and reactive, extraocular movements intact but delayed, no scleral icterus Neck: Neck: supple and no JVD Other: No JVD, no lymphadenopathy, tracheostomy scar present Resp: Effort & Inspection: normal respiratory effort Auscultation: clear to auscultation bilaterally Other: Crackles at bilateral bases, frequent cough with deep inspiration Cardio: Rate: regular rate Rhythm: abnormal rhythm irregularly irregular Heart sounds: Murmur heart sound present Other: Irregularly irregular, rate controlled, 2+ bilateral radial pedal pulses, 2/6 systolic murmur GI: Auscultation: normal bowel sounds Other: Soft, nontender, nondistended, positive bowel sounds, ostomy draining in the left lower abdomen : Other: Pure wick catheter in place Skin: General skin exam: normal color Other: No pallor, non jaundice, chronic skin changes to bilateral lower extremities consistent with history of peripheral vascular disease Neuro: Other: Alert oriented to person, month, year, confused as to place, speech is slow and intermittently slurred, equal strength bilaterally but fine motor delay Extrem: Other: 4/5 lead qa analyst strength bilateral, 1+ pitting edema bilateral lower extremities Psych: Other: Pleasantly confused, cooperative, cracking jokes Objective Data Vital Signs Vital Signs: Vital Signs - 24 hr 11/08/24 08:00 11/08/24 08:00 11/08/24 08:00 Temperature 97.9 F Pulse Rate 71 82 Respiratory Rate 20 Blood Pressure 144/74 H Pulse Oximetry 98 Oxygen Delivery Room Air 11/08/24 10:00 11/08/24 12:00 11/08/24 16:00 Temperature Pulse Rate 74 86 72 Respiratory Rate Blood Pressure Pulse Oximetry Oxygen Delivery 11/08/24 16:57 11/08/24 20:00 11/08/24 20:30 Temperature 97.9 F Pulse Rate 73 63 Respiratory Rate 20 Blood Pressure 138/68 Pulse Oximetry 98 Oxygen Delivery Room Air 11/09/24 00:00 11/09/24 00:26 11/09/24 04:00 Temperature 97.8 F Pulse Rate 87 84 79 Respiratory Rate 20 Blood Pressure 172/93 H Pulse Oximetry 98 Oxygen Delivery 11/09/24 05:38 Temperature 97.0 F L Pulse Rate 83 Respiratory Rate 20 Blood Pressure 162/83 H Pulse Oximetry 98 Oxygen Delivery Intake/Output Intake/Output: Intake & Output 11/06/24 11/07/24 11/08/24 11/09/24 23:59 23:59 23:59 23:59 Intake Total 300 2552 1130 Output Total 900 898 802 3594 Balance -600 1652 330 -1500 Meds/Results Medications: Active Medications Generic Name Dose Route Start Last Admin Trade Name Matthewq PRN Reason Stop Dose Admin Aspirin 81 mg 11/07/24 09:00 11/08/24 08:20 Aspirin 81 Mg Chewable Tablet PO 81 mg DAILY SUDEEP Administration Docusate Sodium 100 mg 11/07/24 09:00 11/08/24 08:20 Docusate Sodium 100 Mg Capsule PO 100 mg DAILY SUDEEP Administration Famotidine 20 mg 11/07/24 09:00 11/08/24 08:20 Famotidine 20 Mg Tablet PO 20 mg DAILY SUDEEP Administration Ceftriaxone Sodium 1 gm in 50 mls @ 100 mls/hr 11/07/24 12:00 11/08/24 13:05 Rocephin 1 Gm/Ns 50 Ml IVPB Infused Q24H SUDEEP Infusion Azithromycin 500 mg in 250 mls @ 250 mls/hr 11/07/24 12:00 11/08/24 13:35 Zithromax IVPB Infused Q24H SUDEEP Infusion Levothyroxine Sodium 112 mcg 11/07/24 06:30 11/09/24 05:55 Levothyroxine Sodium 112 Mcg Tablet PO 112 mcg DAILY@0630 SUDEEP Administration Loratadine 10 mg 11/07/24 09:00 11/08/24 08:20 Loratadine 10 Mg Tablet PO 10 mg DAILY SUDEEP Administration Pyridoxine HCl 100 mg 11/07/24 09:00 11/08/24 08:20 Pyridoxine Hcl 50 Mg Tablet PO 100 mg DAILY SUDEEP Administration Rivaroxaban 20 mg 11/07/24 18:00 11/08/24 17:16 Rivaroxaban 20 Mg Tablet PO 20 mg QPM SUDEEP Administration Simethicone 80 mg 11/07/24 09:00 11/08/24 17:16 Simethicone 80 Mg Tab.Chew PO 80 mg BID SUDEEP Administration Radiology Results: ITS Impressions Chest X-Ray 11/06/24 11:04 IMPRESSION: 1. Airspace and interstitial opacities in right mid and lower lung zones, consistent with pneumonia versus mild pulmonary edema. Head/Neck CTA 11/06/24 11:24 IMPRESSION: 1. 50% stenosis of the right carotid bulb relative to normal distal artery lumen diameter (NASCET criteria). 2. Atherosclerotic plaque with 0% stenosis of the left carotid bulb relative to normal distal artery lumen diameter. 3. Left vertebral artery is dominant with potentially minimally significant stenosis at the proximalmost and diminutive distalmost right vertebral artery. Otherwise unremarkable cerebral CT angiogram with no other hemodynamically significant stenosis, aneurysm or thrombosis. 4. Normal aging brain. No acute intracranial process or abnormally enhancing brain lesions. 5. Mild pulmonary edema in the visualized upper lungs. Labs Labs: Laboratory Results - last 24 hr 11/09/24 05:51 WBC 9.0 RBC 4.24 L Hgb 13.0 L Hct 40.0 L MCV 94.3 MCH 30.7 MCHC 32.5 RDW 12.5 Plt Count 221 MPV 10.5 H Sodium 141 Potassium 3.7 Chloride 103 Carbon Dioxide 27 Anion Gap 11 BUN 25 H D Creatinine 1.18 Estim Creat Clear Calc 46 Estimated GFR 59 Glucose 98 Calcium 9.3 Total Bilirubin 0.7 AST 24 ALT 24 Alkaline Phosphatase 82 Total Protein 7.0 Albumin 3.8 Quality VTE Prophylaxis VTE prophylaxis: pharmacologic ordered (Continue home Xarelto.) Hospitalist [facility] Advance Care Plan I have confirmed that the patient's Advanced Care Plan is present, code status is documented, or surrogate decision maker is listed in patient medical record.: Yes Medication Reconciliation I have utilized all available resources to obtain, update and review the patients current medications (includes all prescriptions, OTC, herbals, can nabis, and nutritional supplements).: Yes
--- NOTE | 2024-11-09 09:37 | PCPTNOTE ---
attempted PT eval, pt away from room for Modified Barrium Swallow, will follow
[2024-11-09] MEDS: AZITHROMYCIN 500 MG/NS 250 ML 500 MG/250 ML BAG 250 MG IVPB (12:57)
--- NOTE | 2024-11-09 13:21 | PCSTNOTE ---
Please refer to the Modified Barium Swallow Evaluation in the EMR. Pt was seen for an MBS after the bedside swallow evaluation and pt's history warranted the need for further assessment. During bedside swallow evaluation, his reported a history of dysphagia including a prior history of tracheostomy with subsequent removal with a history of dysphagia last year following a prolonged hospital stay. Pt denies dysphagia.? Also, during the bedside swallow evaluation, pt and his reported that the pt will often choke at home on foods unless he chews them up finely, usually meat and not liquid. They haven?t noticed him coughing up any food since hospitalization, but his stated that she had not been around for every meal.? During the bedside, the pt did not demonstrate any s/s of aspiration but the REGISTERED SAFETY ENGINEER recommended MBS to rule out silent aspiration. MBS results: The pt was seated for a lateral view and presented with thin liquids, pudding, & cracker in controlled amounts. The oral stages were within normal limits with the liquid and pudding trials; with the thin liquid and pudding the pharyngeal stages were also ?WFL; during the esophageal stage a large Zenker's diverticulum was exhibited which filled & then was back flowed into the pyriform sinuses. Pt required verbal cues to dry swallow which only briefly cleared the backflow as it back flowed again.? With each swallow, a portion was cleared around the Zenker's but throughout testing max risk of laryngeal penetration and aspiration is present. Verbal cueing was essential for pt to dry swallow to clear contents from pharynx. During the cracker trial, the pt chewed excessively and ?swallowed a portion 3 times. The first 2 swallows were WFL until the esophageal stage which again was back flowed into the pyriform sinuses.? When the pt swallowed the last portion of the cracker, it appeared to spill from the oral cavity into the open laryngeal vestibule before the swallow and was SILENTLY aspirated during the swallow.? Impressions & Recommendations: Given the loss of bolus control and the large Zenker?s diverticulum, pt presents with severe dysphagia. Provider was notified re a possible GI consult. No ST until after the GI consult. Non oral feeding is recommended as this pt is at high risk for aspiration.
[2024-11-09] MEDS: DEXTROSE 5%/0.45% SOD CHL 1,000 ML 100 ML IV CONT (14:55)
--- NOTE | 2024-11-09 17:05 | WPDGICN ---
Assessment and Plan Assessment and plan (1) Zenker diverticulum: Code(s): K22.5 - Diverticulum of esophagus, acquired Status: Acute Assessment and Plan: This patient's current dysphagia and aspiration are most likely attributable to a large Zenker's diverticulum. We discussed the possibility of endoscopic repair via per oral endoscopic myotomy (POEM) with Dr. Callie Mendoza at [facility]. Orders have been placed for staff to coordinate this procedure for next week. PEG tube placement is indicated, but his recent Xarelto dose (taken last night) necessitates discontinuation of the medication for at least three days prior to the procedure. Therefore, he will be fed via nasogastric tube in the interim, and PEG placement will be scheduled for next . Plan - NG tube placement for feeding - Hold Xarelto - PEG tube for - Coordiation for endoscopic treatment of Zenker to be done tomorrow by our staff GI Consult Note Consult date/time: 11/09/24 17:05 Reason for consult: dysphagia - finding of Zenker's diverticulum HPI: Omar Ryan, an 84-year-old male with a history of atrial fibrillation on Xarelto, a prior tracheostomy (now removed), and a Willy procedure with extensive adhesiolysis, sigmoidectomy, and end descending colostomy on November 05, 2022, presents with a long-standing history of dysphagia. While he reports difficulty swallowing for many years, this has recently worsened, characterized by a sensation of food getting stuck in his throat and occasional gargling and significant hoarseness. A barium swallow performed approximately one year ago was reportedly normal. However, a repeat barium swallow this morning revealed a large solitary diverticulum and significant aspiration. As a result, oral intake is contraindicated at this time. Review of Systems Review of Systems: All systems reviewed & are unremarkable except as noted in HPI and below [facility] Past Medical History Medical History (Updated 11/09/24 @ 16:25 by Anjum Lamas MD) Grade II diastolic dysfunction History of open sigmoidectomy Vitamin D deficiency, unspecified Paroxysmal atrial fibrillation Brain bleed Prostate CA Basal cell carcinoma Hepatitis B Prediabetes Hypothyroid Constipation GERD (gastroesophageal reflux disease) Hyperlipidemia Hypertension CAD (coronary artery disease) Myocardial infarct Seizures Surgical History Surgical History (Updated 11/07/24 @ 05:35 by Kenzie Chiu DO) S/P hernia repair 08/02/2023 had open repair of right inguinal hernia due to 70% of the patient's small bowel contents being within the hernia, complicated by postoperative abscess requiring percutaneous drain, 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 The patient had postoperative shock and remained intubated for a prolonged period requiring tracheostomy and transfer to LTAC 10/09/2023 S/P percutaneous endoscopic gastrostomy (PEG) tube placement (09/25/23) With subsequent removal History of tracheostomy 09/13/2023 with subsequent removal History of colostomy Status post Willy procedure 09/04/23 Extensive (2 1/2 hrs) adhesiolysis, sigmoidectomy with end descending colostomy and Willy procedure Hx of local excision of skin lesion H/O arthroscopy lt knee H/O prostatectomy Hx of colonoscopy 2012 - Dr. Yen Hx of CABG 11/2009 - triple bypass surgery at [facility] Family History Family History Father Malignant neoplasm of prostate Sibling Ovarian cancer Mother , epilepsy No problems noted. Sibling No problems noted. Social History Social History (Updated 11/07/24 @ 05:38 by Kenzie Chiu DO) Social History: Patient lives with his Cherie. He has a distant history of smoking a 12 pack per year history. He used to rarely drinks alcohol and only in moderation. Code status: Full code Surrogate decision maker: Sid () Smoking packs per day: 2 Smoking cigarettes per day: 40.0 Years smoked: 12 Smoking pack-years: 24.00 Smoking status: Former smoker Tobacco type: cigarettes Second hand tobacco smoke exposure: No Smoking end date: 09/23/70 Alcohol intake: never Alcohol use details: RARELY - 1/2 CASE BEER/YR Substance use: never Substance use type: does not use Do You Feel Safe in your Home?: Yes Lack of Transportation: No Lack of Food: Never True Current Housing: I Have Housing Concerned About Future Housing: No Difficulty Paying Gas/Electric Bills: No Difficulty Paying for Meds: No Currently Unemployed: No Education: High School Diploma/GED Difficulty w/ Childcare or Family Care: No Living arrangements: with family Occupation/Education: retired 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[employer] Gender identity (if verbalized by the patient): Male Spiritual care concerns: No Meds Home Medications and Allergies Home Medications ?Medication ?Instructions ?Recorded ?Confirmed ?Type loratadine 10 mg tablet (Claritin) 10 mg PO DAILY 05/15/22 11/06/24 History rivaroxaban 20 mg tablet (Xarelto) 20 mg PO QPM 07/30/23 11/06/24 History simethicone 62.5 mg oral strips 1 strip PO BID 12/02/23 11/06/24 History (Gas-X) aspirin 81 mg chewable tablet 1 tablet PO DAILY 01/06/24 11/06/24 History docusate sodium 100 mg capsule 100 mg PO DAILY 03/25/24 11/06/24 History (Stool Softener) pyridoxine (vitamin B6) 100 mg 100 mg PO DAILY 03/25/24 11/06/24 History tablet famotidine 20 mg tablet 20 mg PO DAILY #90 tabs 09/21/24 11/06/24 Rx nystatin 100,000 unit/gram topical 1 applic topical TID #60 grams 10/26/24 11/06/24 Rx powder levothyroxine 112 mcg tablet 112 mcg PO DAILY@0630 11/06/24 11/06/24 History Allergies Allergy/AdvReac Type Severity Reaction Status Date / Time Nionomd-CBT-NgW Reductase Allergy Unknown Joint Pain Verified 11/06/24 10:13 Inhibitor (Spgnjar-Hkf-Hid & MUSCLE Reductase Inhibitor) WEAKNESS diphenhydramine (From AdvReac Agitated Verified 11/06/24 10:13 Benadryl) halobetasol AdvReac Rash Verified 09/03/24 10:25 quetiapine (From Seroquel) AdvReac Agitated Verified 11/06/24 10:13 Vital Signs Vital Signs - 24 hr 11/08/24 20:00 11/08/24 20:30 11/09/24 00:00 Temperature Pulse Rate 63 87 Respiratory Rate Blood Pressure Pulse Oximetry Oxygen Delivery Room Air 11/09/24 00:26 11/09/24 04:00 11/09/24 05:38 Temperature 97.8 F 97.0 F L Pulse Rate 84 79 83 Respiratory Rate 20 20 Blood Pressure 172/93 H 162/83 H Pulse Oximetry 98 98 Oxygen Delivery 11/09/24 10:20 11/09/24 10:20 11/09/24 12:00 Temperature Pulse Rate 79 68 Respiratory Rate Blood Pressure Pulse Oximetry Oxygen Delivery Room Air 11/09/24 13:11 11/09/24 14:00 Temperature 97.8 F Pulse Rate 75 Respiratory Rate 16 Blood Pressure 115/73 Pulse Oximetry 97 Oxygen Delivery Room Air Exam Narrative: Alert and oriented x3. Chest and lungs: Clear abdomen: Colostomy in the left lower quadrant, evidence of significant abdominal hernia, nontender, nondistended, no hepatomegaly. Rest of the exam within normal limits. Results Labs 11/09/24 05:51 11/09/24 05:51 Labs: Short CBC 11/09/24 Range/Units 05:51 WBC 9.0 (4.5-10.0) K/mm3 Hgb 13.0 L (14.0-18.0) g/dL Hct 40.0 L (42.0-52.0) % Plt Count 221 (150-375) k/mm3 BMP 11/09/24 05:51 Sodium 141 Potassium 3.7 Chloride 103 Carbon Dioxide 27 BUN 25 H D Creatinine 1.18 Glucose 98 Calcium 9.3 Liver Function 11/09/24 Range/Units 05:51 Total Bilirubin 0.7 (0.2-1.3) mg/dL AST 24 (17-59) U/L ALT 24 (6-50) U/L Alkaline Phosphatase 82 (38-126) U/L Albumin 3.8 (3.5-5.1) g/dL
[2024-11-10] VITALS (9 sets, daily range): BP systolic 129–167; BP diastolic 77–99; PULSE 62–81; RESP 16–20; TEMP 36.2–36.3; O2SAT 95–98; BMI 28.0
[2024-11-10] MEDS: DEXTROSE 5%/0.45% SOD CHL 1,000 ML 100 ML IV CONT ×2 (01:21→12:18)
[2024-11-10 05:52] LABS: Hematocrit 38.9 % (42.0-52.0); Hemoglobin 12.8 g/dL (14.0-18.0); Mean Corpuscular HGB Conc 32.9 g/dl (32-36); Mean Corpuscular Hemoglobin 31.3 pg (26-34); Mean Corpuscular Volume 95.1 fl (80-100); Mean Platelet Volume 10.6 fl (7.4-10.4); Platelet Count Result 222 k/mm3 (150-375); Red Blood Count 4.09 M/mm3 (4.6-6.20); Red Cell Distribution Width 12.6 % (11.5-14.5); White Blood Count 7.6 K/mm3 (4.5-10.0)
[2024-11-10 06:09] LABS: Alanine Aminotransferase 20 U/L (6-50); Albumin Level 3.8 g/dL (3.5-5.1); Alkaline Phosphatase 83 U/L (38-126); Anion Gap 10 mmol/L (4-12); Aspartate Amino Transferase 21 U/L (17-59); Bilirubin,Total 0.7 mg/dL (0.2-1.3); Blood Urea Nitrogen 19 mg/dL (9-20); Calcium 9.1 mg/dL (8.4-10.2); Carbon Dioxide 26 mmol/L (22-30); Chloride 104 mmol/L (98-107); Estimated CRCL calculation 50 ml/min; Estimated Glomerular Filt Rate > 60; Glucose 111 mg/dL (65-110); Potassium 3.6 mmol/L (3.4-5.0); Sodium 140 mmol/L (137-145)
--- NOTE | 2024-11-10 08:18 | PC.NURSE ---
Patient off of unit to radiology
--- NOTE | 2024-11-10 09:23 | PC.NURSE ---
RN spoke with Design Engineering Manager Alina and informed her that patient now has Dobhoff placed. Alina will dose patient accordingly for nutrition.
--- NOTE | 2024-11-10 09:52 | P.PNGI_ITS ---
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 This allows enough time for the effects of Xarelto to subside before the planned PEG tube placement on . We are currently coordinating with [facility] regarding the Zenker's diverticulum myotomy procedure. Time Spent With Patient Time with patient: less than 15 minutes Subjective Date/time seen: 11/10/24 09:52 Interval history: No attempts at placing EGD were made due to prior difficulties experienced by the patient during his prior prolonged ICU stay, secondary to a Zenker's diverticulum. He was going to get a Dobbhoff tube this morning placed by Interventional Radiology under fluoroscopy. Objective Data Vital Signs Vital Signs: Vital Signs - 24 hr 11/09/24 10:20 11/09/24 10:20 11/09/24 12:00 Temperature Pulse Rate 79 68 Respiratory Rate Blood Pressure Pulse Oximetry Oxygen Delivery Room Air 11/09/24 13:11 11/09/24 14:00 11/09/24 16:00 Temperature 97.8 F Pulse Rate 75 70 Respiratory Rate 16 Blood Pressure 115/73 Pulse Oximetry 97 Oxygen Delivery Room Air 11/09/24 20:00 11/09/24 20:00 11/09/24 20:11 Temperature 97.9 F Pulse Rate 58 L 62 Respiratory Rate 18 Blood Pressure 148/96 H Pulse Oximetry 97 Oxygen Delivery Room Air 11/10/24 00:00 11/10/24 04:00 11/10/24 06:00 Temperature 97.4 F L Pulse Rate 70 81 63 Respiratory Rate 20 Blood Pressure 155/99 H Pulse Oximetry 98 Oxygen Delivery Intake/Output Intake/Output: Intake & Output 11/07/24 11/08/24 11/09/24 11/10/24 23:59 23:59 23:59 23:59 Intake Total 2552 6020 595 3831 Output Total 181 670 6893 800 Balance 1652 330 -2200 200 Meds/Results Medications: Active Medications Generic Name Dose Route Start Last Admin Trade Name Freq PRN Reason Stop Dose Admin Aspirin 81 mg 11/07/24 09:00 11/09/24 11:55 Aspirin 81 Mg Chewable Tablet PO Not Given DAILY [facility] Docusate Sodium 100 mg 11/07/24 09:00 11/09/24 11:55 Docusate Sodium 100 Mg Capsule PO Not Given DAILY [facility] Famotidine 20 mg 11/07/24 09:00 11/09/24 11:56 Famotidine 20 Mg Tablet PO Not Given DAILY [facility] Ceftriaxone Sodium 1 gm in 50 mls @ 100 mls/hr 11/07/24 12:00 11/09/24 13:27 Rocephin 1 Gm/Ns 50 Ml IVPB Infused Q24H [facility] Infusion Azithromycin 500 mg in 250 mls @ 250 mls/hr 11/07/24 12:00 11/09/24 13:57 Zithromax IVPB 11/10/24 12:59 Infused Q24H SUDEEP Infusion Dextrose/Sodium Chloride 1,000 mls @ 100 mls/hr 11/09/24 13:05 11/10/24 01:21 Dextrose 5% Sodium Chloride 0.45% IV CONT 100 mls/hr .Q10H [facility] Administration Levothyroxine Sodium 112 mcg 11/07/24 06:30 11/10/24 06:36 Levothyroxine Sodium 112 Mcg Tablet PO Not Given DAILY@0630 [facility] Loratadine 10 mg 11/07/24 09:00 11/09/24 11:56 Loratadine 10 Mg Tablet PO Not Given DAILY [facility] Pyridoxine HCl 100 mg 11/07/24 09:00 11/09/24 11:56 Pyridoxine Hcl 50 Mg Tablet PO Not Given DAILY [facility] Simethicone 80 mg 11/07/24 09:00 11/09/24 16:38 Simethicone 80 Mg Tab.Chew PO Not Given BID [facility] Radiology Results: ITS Impressions Chest X-Ray 11/06/24 11:04 IMPRESSION: 1. Airspace and interstitial opacities in right mid and lower lung zones, consistent with pneumonia versus mild pulmonary edema. Head/Neck CTA 11/06/24 11:24 IMPRESSION: 1. 50% stenosis of the right carotid bulb relative to normal distal artery lumen diameter (NASCET criteria). 2. Atherosclerotic plaque with 0% stenosis of the left carotid bulb relative to normal distal artery lumen diameter. 3. Left vertebral artery is dominant with potentially minimally significant stenosis at the proximalmost and diminutive distalmost right vertebral artery. Otherwise unremarkable cerebral CT angiogram with no other hemodynamically significant stenosis, aneurysm or thrombosis. 4. Normal aging brain. No acute intracranial process or abnormally enhancing brain lesions. 5. Mild pulmonary edema in the visualized upper lungs. Modified Barium Swallow 11/09/24 10:13 IMPRESSION: Pharyngeal dysphagia with laryngeal penetration with aspiration during the swallow with solids but with more frequent laryngeal penetration following the swallow resulting from backflow from a large Zenker's diverticulum. Please correlate with speech pathologist findings and specific feeding recommendations. Labs Labs: Laboratory Results - last 24 hr 11/10/24 05:38 WBC 7.6 RBC 4.09 L Hgb 12.8 L Hct 38.9 L MCV 95.1 MCH 31.3 MCHC 32.9 RDW 12.6 Plt Count 222 MPV 10.6 H Sodium 140 Potassium 3.6 Chloride 104 Carbon Dioxide 26 Anion Gap 10 BUN 19 Creatinine 1.06 Estim Creat Clear Calc 50 Estimated GFR > 60 Glucose 111 H Calcium 9.1 Total Bilirubin 0.7 AST 21 ALT 20 Alkaline Phosphatase 83 Total Protein 7.0 Albumin 3.8
[2024-11-10] MEDS: AZITHROMYCIN 500 MG/NS 250 ML 500 MG/250 ML BAG 250 MG IVPB (12:15)
--- NOTE | 2024-11-10 12:41 | P.CONNEU_ITS ---
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 Movement Disorder for which patient is being evaluated and treated 2. Atrial fibrillation requiring chronic anticoagulation therapy 3. Send cultures diverticulum with dysphagia requiring endoscopic repair but at present because of the anticoagulation is being deferred click as transfer to the [facility] 4 generalized weakness multifactorial 5 status post aorto coronary bypass graft with history of CABG complicated by atrial fibrillation as mentioned above plan neurologically no intervention at this particular time treatment will be continued as such. Consult date: 11/10/24 HPI: Omar Ryan is a 84 year old male admitted to the hospital through the emergency room on November 06, 2024 with the complaints of generalized weakness , in addition to the history of atrial fibrillation and on anticoagulation therapy with Xarelto, history of CABG, history of coronary artery disease, history of hypertension history of hypothyroidism, and history of hyperlipidemia. He was brought from his home by his daughter and the as per the information he went to sleep in his normal state of health at 4:00 a.m. and woke up at 6:00 a.m. lying on his left side when he turned over he felt very dizzy he called for his for several hours but she did not hear him up until 8:00 a.m. when she would go to to his room she found him shaking in his body and the rail of his past he patient stated that he recalled shaking but was unsure why he was doing at there is was no history of seizure disorder, no incontinence of the urine but mentioned that every time he tries to sit up he begins to shake. Also has chronic gait and balance issues for the last several months for which he is being followed by the neurologist says sentences in [facility] he was reportedly started on carbidopa levodopa for the possibility of cup Parkinson's disease in August but was discontinued in September after having GI issues. He was also noted to have slurred speech in the emergency room but he has had slurring of speech before as well he gave no history of any visual difficulties or any other associated generalized symptomatology he has had right tympanostomy he with his dizziness will improve or not but significant improvement was not noted. His medications included loratadine 10mg daily, rivaroxaban 20mg daily, aspirin 81mg daily, pyridoxine 100mg daily, his past history includes paroxysmal atrial fibrillation, cancer with prostate, hypertension, hyper lipidemia coronary artery disease, and seizures. He has history of being former smoker 12 years smoked but no alcohol intake. Subsequently Cardiology consultation has been obtained his troponin levels were slightly elevated but not indicating of myocardial injury and no further evaluation cardiological he was recommended though he was found to have cardiac murmur with a symptomatic aortic valve stenosis. Gastroenterology consultation has been obtained for the Zenker diverticulum with clinical complaints of dysphagia and aspiration in the meantime [place] ability of endoscopic repair via per oral endoscopic myotomy has been consider sent to [facility] will probably be done next week but because of the Xarelto pack to has not been placed at this time and receiving feeding through nasogastric tube Review of Systems 2 Review of Systems: All systems reviewed & are unremarkable except as noted in HPI and below PMFSH Past Medical History Medical History Grade II diastolic dysfunction History of open sigmoidectomy Vitamin D deficiency, unspecified Paroxysmal atrial fibrillation Brain bleed Prostate CA Basal cell carcinoma Hepatitis B Prediabetes Hypothyroid Constipation GERD (gastroesophageal reflux disease) Hyperlipidemia Hypertension CAD (coronary artery disease) Myocardial infarct Seizures Surgical History Surgical History S/P hernia repair 08/02/2023 had open repair of right inguinal hernia due to 70% of the patient's small bowel contents being within the hernia, complicated by postoperative abscess requiring percutaneous drain, 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 The patient had postoperative shock and remained intubated for a prolonged period requiring tracheostomy and transfer to LTAC 10/09/2023 S/P percutaneous endoscopic gastrostomy (PEG) tube placement (09/25/23) With subsequent removal History of tracheostomy 09/13/2023 with subsequent removal History of colostomy Status post Willy procedure 09/04/23 Extensive (2 1/2 hrs) adhesiolysis, sigmoidectomy with end descending colostomy and Willy procedure Hx of local excision of skin lesion H/O arthroscopy lt knee H/O prostatectomy Hx of colonoscopy 2012 - Dr. Yen Hx of CABG 11/2009 - triple bypass surgery at [facility], [place] Family History Family History Father Malignant neoplasm of prostate Sibling Ovarian cancer Mother , epilepsy No problems noted. Sibling No problems noted. Social History Social History Social History: Patient lives with his Cherie. He has a distant history of smoking a 12 pack per year history. He used to rarely drinks alcohol and only in moderation. Code status: Full code Surrogate decision maker: Sid () Smoking packs per day: 2 Smoking cigarettes per day: 40.0 Years smoked: 12 Smoking pack-years: 24.00 Smoking status: Former smoker Tobacco type: cigarettes Second hand tobacco smoke exposure: No Smoking end date: 09/23/70 Alcohol intake: never Alcohol use details: RARELY - 1/2 CASE BEER/YR Substance use: never Substance use type: does not use Do You Feel Safe in your Home?: Yes Lack of Transportation: No Lack of Food: Never True Current Housing: I Have Housing Concerned About Future Housing: No Difficulty Paying Gas/Electric Bills: No Difficulty Paying for Meds: No Currently Unemployed: No Education: High School Diploma/GED Difficulty w/ Childcare or Family Care: No Living arrangements: with family Occupation/Education: retired 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[employer] Gender identity (if verbalized by the patient): Male Spiritual care concerns: No Meds Home Medications and Allergies Home Medications ?Medication ?Instructions ?Recorded ?Confirmed ?Type loratadine 10 mg tablet (Claritin) 10 mg PO DAILY 05/15/22 11/06/24 History rivaroxaban 20 mg tablet (Xarelto) 20 mg PO QPM 07/30/23 11/06/24 History simethicone 62.5 mg oral strips 1 strip PO BID 12/02/23 11/06/24 History (Gas-X) aspirin 81 mg chewable tablet 1 tablet PO DAILY 01/06/24 11/06/24 History docusate sodium 100 mg capsule 100 mg PO DAILY 03/25/24 11/06/24 History (Stool Softener) pyridoxine (vitamin B6) 100 mg 100 mg PO DAILY 03/25/24 11/06/24 History tablet famotidine 20 mg tablet 20 mg PO DAILY #90 tabs 09/21/24 11/06/24 Rx nystatin 100,000 unit/gram topical 1 applic topical TID #60 grams 10/26/24 11/06/24 Rx powder levothyroxine 112 mcg tablet 112 mcg PO DAILY@0630 11/06/24 11/06/24 History Allergies Allergy/AdvReac Type Severity Reaction Status Date / Time Gwrojpr-RHI-OmL Reductase Allergy Unknown Joint Pain Verified 11/06/24 10:13 Inhibitor (Ofnrlme-Sht-Dce & MUSCLE Reductase Inhibitor) WEAKNESS diphenhydramine (From AdvReac Agitated Verified 11/06/24 10:13 Benadryl) halobetasol AdvReac Rash Verified 09/03/24 10:25 quetiapine (From Seroquel) AdvReac Agitated Verified 11/06/24 10:13 Vital Signs Vital Signs - 24 hr 11/09/24 13:11 11/09/24 14:00 11/09/24 16:00 Temperature 36.6 C Pulse Rate 75 70 Respiratory Rate 16 Blood Pressure 115/73 Pulse Oximetry 97 Oxygen Delivery Room Air 11/09/24 20:00 11/09/24 20:00 11/09/24 20:11 Temperature 36.6 C Pulse Rate 58 L 62 Respiratory Rate 18 Blood Pressure 148/96 H Pulse Oximetry 97 Oxygen Delivery Room Air 11/10/24 00:00 11/10/24 04:00 11/10/24 06:00 Temperature 36.3 C L Pulse Rate 70 81 63 Respiratory Rate 20 Blood Pressure 155/99 H Pulse Oximetry 98 Oxygen Delivery 11/10/24 09:20 11/10/24 09:20 Temperature Pulse Rate 71 Respiratory Rate Blood Pressure Pulse Oximetry Oxygen Delivery Room Air Exam 2 Narrative: exam revealed him to be awake alert fairly comfortable, head normocephalic with no bruit, ear nose throat examination normal, nasogastric tube in place, neck supple with no bruit, heart regular with no murmur, lungs clear with no crepitations, abdomen is soft nontender with normal bowel sounds, neurologically he is awake alert somewhat slow in responding but able to follow the verbal commands appropriately speech not very clear pupils round regular feels the vision. Extraocular movements full with no nystagmus facial sensation intact face symmetrical tongue midline motor examination reveals generalized decreased strength 4/5 with reflexes being sluggish plantars downgoing. Results Labs 11/10/24 05:38 11/10/24 05:38 Labs: Short CBC 11/10/24 Range/Units 05:38 WBC 7.6 (4.5-10.0) K/mm3 Hgb 12.8 L (14.0-18.0) g/dL Hct 38.9 L (42.0-52.0) % Plt Count 222 (150-375) k/mm3 BMP 11/10/24 05:38 Sodium 140 Potassium 3.6 Chloride 104 Carbon Dioxide 26 BUN 19 Creatinine 1.06 Glucose 111 H Calcium 9.1 Liver Function 11/10/24 Range/Units 05:38 Total Bilirubin 0.7 (0.2-1.3) mg/dL AST 21 (17-59) U/L ALT 20 (6-50) U/L Alkaline Phosphatase 83 (38-126) U/L Albumin 3.8 (3.5-5.1) g/dL
--- NOTE | 2024-11-10 13:05 | P.CDI_ITS ---
CDI Query Clarification Request BMI: 28.1 Nutritional Diagnostic Statement: Please refer to the comprehensive nutrition assessment for further information. If you agree with diagnosis of Severe Protein Calorie Malnutrition as related to inadequate protein energy intake as evidenced by weight loss of 13 ibs (6%) in 1 month, moderate muscle wasting (orbital fat pads) and moderate subcutaneous fat loss (clavicle, temporalis). Please specify severity if known: * Mild * Moderate * Severe * Other/Unknown <Alina Portillo RN - Last Filed: 11/10/24 13:06> Clarified Diagnosis Clarified Diagnosis: Severe <Kishore Ruvalcaba MD - Last Filed: 11/11/24 09:01>
--- NOTE | 2024-11-10 16:04 | P.PNIM_ITS ---
Progress Note: A&P Assessment and Plan (1) Pulmonary edema: Qualifiers: Chronicity: acute Qualified Code(s): J81.0 - Acute pulmonary edema Code(s): J81.1 - Chronic pulmonary edema Status: Acute (2) Pneumonia: Qualifiers: Pneumonia type: due to unspecified organism Laterality: right Lung location: unspecified part of lung Qualified Code(s): J18.9 - Pneumonia, unspecified organism Code(s): J18.9 - Pneumonia, unspecified organism Status: Acute (3) Elevated troponin: Code(s): R79.89 - Other specified abnormal findings of blood chemistry Status: Acute (4) Occasional tremors: Code(s): R25.1 - Tremor, unspecified Status: Acute (5) A-fib: Qualifiers: Atrial fibrillation type: unspecified Qualified Code(s): I48.91 - Unspecified atrial fibrillation Code(s): I48.91 - Unspecified atrial fibrillation Status: Acute (6) Chronic anticoagulation: Code(s): Z79.01 - care home (current) use of anticoagulants Status: Acute (7) Dizziness: Code(s): R42 - Dizziness and giddiness Status: Acute Plan Patient has x-ray findings concerning for pneumonia versus pulmonary edema. He does have a mild white count in his reports symptoms of coughing with eating. Differential includes to mucoid pneumonia versus aspiration. Patient was started on empiric antibiotic therapy with Rocephin and azithromycin in the ER. Will continue antibiotic therapy. Blood cultures have been obtained and are pending. Will request speech therapy evaluation for bedside swallow. Will repeat CBC in a.m.. Patient had elevated troponin but troponin profile trended down and has remained flat. He is not having any chest pain. Troponin elevation is likely due to a combination of patient has chronic heart failure with possible acute component given pulmonary edema noted on CT scan of the neck is in the lung apices. The patient received 1 dose of IV Lasix. He currently appears euvolemic at the time my evaluation without JVD and was stable lower extremity edema. W The patient's last echocardiogram within our system was July 2023. Patient does follow with Dr. Luna as outpatient. Is unclear if he may have had an outpatient echo more recently. Will consult Cardiology regarding murmur and pulmonary edema. Will continue patient's home Xarelto. Will repeat electrolyte panel and monitor strict I&O's. Will hold off on further diuretic therapy. ER provider [facility] patient follows with [facility]rology. There was some concern from the neurologist air the patient may have Parkinson's but the patient did not tolerate Sinemet. Patient does have chronic dysarthria that is worse when he 1st wakes up. A Neuro team at [place] reviewed the patient's chart and bleeds at the patient's dizziness and ataxia chronic. He had an MRI of the brain 10/29/2024 demonstrating 1 small area of abnormality which they believe was chronic changes. The patient likely had worsening ataxia and instability due to weakness from acute infection and they felt patient was stable enough to stay here for treatment of underlying illness. Patient was resumed on his own levothyroxine. Patient has been admitted as observation status. 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 Speech on board. Zenker's diverticulum Noted on MPS several by speech therapy For PEG tube placement tomorrow GI is coordinating for endoscopic myomectomy procedure at [facility] Currently patient is NPO. Continue NG tube feeding. Parkinson Follows up with outpatient Neurology at [facility] Unable to tolerate carbidopa levodopa due to GI issues MRI of the brain on 10/29/2024 which showed one area of abnormality which was chronic in nature and was otherwise unremarkable Possibly his shaking is due to myoclonic jerks. ED contacted Dr. Ramsay the the neurologist who confirms the dizziness and ataxia or chronic Chronic dizziness Status post right tympanostomy tube which was placed in August by ENT at [facility] DVT prophylaxis SCDs, patient is awaiting xarelto washout for a tube placement tomorrow. Subjective Date/time seen: 11/10/24 16:04 Interval history: Patient comfortable at bedside. For endoscopic treatment of Zenker's diverticulum on .. Review of Systems Review of Systems: 12 systems were reviewed with pertinent positives and negatives per HPI. Except as documented in the HPI, all other systems were reviewed and are negative. All systems reviewed & are unremarkable except as noted in HPI and below Constitutional: Constitutional: Reports no additional constitutional complaints Eyes: Eyes: Reports no additional eye complaints ENT: Reports system reviewed and no additional complaints, except as documented Cardiovascular: Cardiovascular: Reports no additional cardiovascular complaints Respiratory: Respiratory: Reports no additional respiratory complaints Gastrointestinal: Gastrointestinal: Reports no additional gastrointestinal complaints Musculoskeletal: Musculoskeletal: Reports no additional musculoskeletal complaints Integumentary/Breasts: Skin/Breast: Reports system reviewed and no additional complaints, except as docu Neurologic: Reports as per HPI Endocrine: Endocrine: Reports no additional endocrine complaints Hematologic/Lymphatic: Hematologic/Lymphatic: Reports no additional hematologic/lymphatic complaints Allergic/Immunologic: Allergic/Immunologic: Reports no additional allergic/immunologic complaints Exam Narrative: Weight 91.5 kg BMI 27.4 Const: General: comfortable Other: No acute distress, well-developed well-nourished, appears stated age, generalized weakness HENMT: Face/Nose/Sinus: Normal nares present Other: Head is normocephalic atraumatic, pupils are equal and reactive, extraocular movements are delayed but intact Eyes: Sclera: sclerae normal Other: Pupils are equal and reactive, extraocular movements intact but delayed, no scleral icterus Neck: Neck: supple and no JVD Other: No JVD, no lymphadenopathy, tracheostomy scar present Resp: Effort & Inspection: normal respiratory effort Auscultation: clear to auscultation bilaterally Other: Crackles at bilateral bases, frequent cough with deep inspiration Cardio: Rate: regular rate Rhythm: abnormal rhythm irregularly irregular Heart sounds: Murmur heart sound present Other: Irregularly irregular, rate controlled, 2+ bilateral radial pedal pulses, 2/6 systolic murmur GI: Auscultation: normal bowel sounds Other: Soft, nontender, nondistended, positive bowel sounds, ostomy draining in the left lower abdomen : Other: Pure wick catheter in place Skin: General skin exam: normal color Other: No pallor, non jaundice, chronic skin changes to bilateral lower extremities consistent with history of peripheral vascular disease Neuro: Other: Alert oriented to person, month, year, confused as to place, speech is slow and intermittently slurred, equal strength bilaterally but fine motor delay Extrem: Other: 4/5 park interpretive ranger strength bilateral, 1+ pitting edema bilateral lower extremities Psych: Other: Pleasantly confused, cooperative, cracking jokes Objective Data Vital Signs Vital Signs: Vital Signs - 24 hr 11/09/24 20:00 11/09/24 20:00 11/09/24 20:11 Temperature 97.9 F Pulse Rate 58 L 62 Respiratory Rate 18 Blood Pressure 148/96 H Pulse Oximetry 97 Oxygen Delivery Room Air 11/10/24 00:00 11/10/24 04:00 11/10/24 06:00 Temperature 97.4 F L Pulse Rate 70 81 63 Respiratory Rate 20 Blood Pressure 155/99 H Pulse Oximetry 98 Oxygen Delivery 11/10/24 09:20 11/10/24 09:20 11/10/24 14:00 Temperature 97.1 F L Pulse Rate 71 67 Respiratory Rate 16 Blood Pressure 129/77 Pulse Oximetry 95 Oxygen Delivery Room Air Intake/Output Intake/Output: Intake & Output 11/07/24 11/08/24 11/09/24 11/10/24 23:59 23:59 23:59 23:59 Intake Total 2552 5277 108 2440 Output Total 261 256 0824 800 Balance 1652 330 -2200 1400 Meds/Results Medications: Active Medications Generic Name Dose Route Start Last Admin Trade Name Jennifer PRN Reason Stop Dose Admin Aspirin 81 mg 11/07/24 09:00 11/10/24 08:30 Aspirin 81 Mg Chewable Tablet PO Not Given DAILY [facility] Docusate Sodium 100 mg 11/07/24 09:00 11/10/24 08:30 Docusate Sodium 100 Mg Capsule PO Not Given DAILY SU[facility] Famotidine 20 mg 11/07/24 09:00 11/10/24 08:30 Famotidine 20 Mg Tablet PO Not Given DAILY SUDE[facility] Ceftriaxone Sodium 1 gm in 50 mls @ 100 mls/hr 11/07/24 12:00 11/10/24 12:45 Rocephin 1 Gm/Ns 50 Ml IVPB Infused Q24H [facility]DEEP Infusion Dextrose/Sodium Chloride 1,000 mls @ 100 mls/hr 11/09/24 13:05 11/10/24 12:18 Dextrose 5% Sodium Chloride 0.45% IV CONT 100 mls/hr .Q10H SUDEEP Administration Levothyroxine Sodium 112 mcg 11/07/24 06:30 11/10/24 06:36 Levothyroxine Sodium 112 Mcg Tablet PO Not Given DAILY@0630 SUDEEP Loratadine 10 mg 11/07/24 09:00 11/10/24 08:30 Loratadine 10 Mg Tablet PO Not Given DAILY [facility] Pyridoxine HCl 100 mg 11/07/24 09:00 11/10/24 08:30 Pyridoxine Hcl 50 Mg Tablet PO Not Given DAILY [facility] Simethicone 80 mg 11/07/24 09:00 11/10/24 08:30 Simethicone 80 Mg Tab.Chew PO Not Given BID [facility] Radiology Results: ITS Impressions Chest X-Ray 11/06/24 11:04 IMPRESSION: 1. Airspace and interstitial opacities in right mid and lower lung zones, consistent with pneumonia versus mild pulmonary edema. Head/Neck CTA 11/06/24 11:24 IMPRESSION: 1. 50% stenosis of the right carotid bulb relative to normal distal artery lumen diameter (NASCET criteria). 2. Atherosclerotic plaque with 0% stenosis of the left carotid bulb relative to normal distal artery lumen diameter. 3. Left vertebral artery is dominant with potentially minimally significant stenosis at the proximalmost and diminutive distalmost right vertebral artery. Otherwise unremarkable cerebral CT angiogram with no other hemodynamically significant stenosis, aneurysm or thrombosis. 4. Normal aging brain. No acute intracranial process or abnormally enhancing brain lesions. 5. Mild pulmonary edema in the visualized upper lungs. Modified Barium Swallow 11/09/24 10:13 IMPRESSION: Pharyngeal dysphagia with laryngeal penetration with aspiration during the swallow with solids but with more frequent laryngeal penetration following the swallow resulting from backflow from a large Zenker's diverticulum. Please correlate with speech pathologist findings and specific feeding recommendations. Labs Labs: Laboratory Results - last 24 hr 11/10/24 05:38 WBC 7.6 RBC 4.09 L Hgb 12.8 L Hct 38.9 L MCV 95.1 MCH 31.3 MCHC 32.9 RDW 12.6 Plt Count 222 MPV 10.6 H Sodium 140 Potassium 3.6 Chloride 104 Carbon Dioxide 26 Anion Gap 10 BUN 19 Creatinine 1.06 Estim Creat Clear Calc 50 Estimated GFR > 60 Glucose 111 H Calcium 9.1 Total Bilirubin 0.7 AST 21 ALT 20 Alkaline Phosphatase 83 Total Protein 7.0 Albumin 3.8 Quality VTE Prophylaxis VTE prophylaxis: pharmacologic ordered (Continue home Xarelto.)
[2024-11-11] VITALS (8 sets, daily range): BP systolic 155–176; BP diastolic 77–95; PULSE 60–82; RESP 18–24; TEMP 36.1–36.6; O2SAT 97–98
[2024-11-11] MEDS: DEXTROSE 5%/0.45% SOD CHL 1,000 ML 100 ML IV CONT (00:37)
[2024-11-11] MEDS: LEVOTHYROXINE SODIUM 112 MCG TABLET PO (06:00)
[2024-11-11 07:00] LABS: Basophils Percent Auto 0.5 % (0.2-1.2); Eosinophils Absolute Auto 0.5 K/mm3 (0-0.3); Eosinophils Percent Auto 6.8 % (0-4.4); Hematocrit 39.6 % (42.0-52.0); Hemoglobin 12.8 g/dL (14.0-18.0); Immature Granulocyte Absolute 0.02 K/mm3 (0.00-0.031); Immature Granulocyte Percent A 0.3 % (0-0.5); Lymphocytes Percent Auto 20.5 % (18.3-44.2); Mean Corpuscular HGB Conc 32.3 g/dl (32-36); Mean Corpuscular Hemoglobin 30.7 pg (26-34); Mean Platelet Volume 10.3 fl (7.4-10.4); Monocytes Absolute Auto 0.5 K/mm3 (0.1-0.6); Monocytes Percent Auto 6.6 % (2.6-8.5); Neutrophils Absolute Auto 4.8 K/mm3 (1.3-6.7); Neutrophils Percent Auto 65.3 % (45.5-73.1); Platelet Count Result 214 k/mm3 (150-375); Red Blood Count 4.17 M/mm3 (4.6-6.20); Red Cell Distribution Width 12.4 % (11.5-14.5); White Blood Count 7.3 K/mm3 (4.5-10.0)
[2024-11-11 07:13] LABS: Alanine Aminotransferase 20 U/L (6-50); Albumin Level 3.7 g/dL (3.5-5.1); Alkaline Phosphatase 80 U/L (38-126); Anion Gap 8 mmol/L (4-12); Aspartate Amino Transferase 22 U/L (17-59); Bilirubin,Total 0.4 mg/dL (0.2-1.3); Blood Urea Nitrogen 16 mg/dL (9-20); Carbon Dioxide 29 mmol/L (22-30); Chloride 104 mmol/L (98-107); Estimated CRCL calculation 52 ml/min; Estimated Glomerular Filt Rate > 60; Glucose 115 mg/dL (65-110); Magnesium 2.2 mg/dL (1.6-2.3); Potassium 3.9 mmol/L (3.4-5.0); Sodium 141 mmol/L (137-145)
--- NOTE | 2024-11-11 07:28 | WPDGIPROGNO ---
Progress Note: A&P Assessment and Plan (1) Zenker diverticulum: Code(s): K22.5 - Diverticulum of esophagus, acquired Status: Acute Assessment and Plan: Patient is currently being fed via Dobbhoff tube. The plan is to put a PEG tube tomorrow and continue coordinations with [facility] for endoscopic treatment of Zenker's diverticulum. Subjective Date/time seen: 11/11/24 07:28 Interval history: Patient doing well, tolerating increased rate of tube feedings, at this moment he is at his goal of 60 mL/hour. Exam Narrative: Unchanged from baseline. Objective Data Vital Signs Vital Signs: Vital Signs - 24 hr 11/10/24 09:20 11/10/24 09:20 11/10/24 12:00 Temperature Pulse Rate 71 75 Respiratory Rate Blood Pressure Pulse Oximetry Oxygen Delivery Room Air 11/10/24 14:00 11/10/24 16:00 11/10/24 20:00 Temperature 97.1 F L Pulse Rate 67 62 67 Respiratory Rate 16 Blood Pressure 129/77 Pulse Oximetry 95 Oxygen Delivery 11/10/24 20:00 11/10/24 22:08 11/11/24 00:00 Temperature 97.3 F L Pulse Rate 78 60 Respiratory Rate 18 Blood Pressure 167/89 H Pulse Oximetry 98 Oxygen Delivery Room Air 11/11/24 02:09 11/11/24 04:00 Temperature 97.0 F L Pulse Rate 73 67 Respiratory Rate 20 Blood Pressure 156/86 H Pulse Oximetry 98 Oxygen Delivery Intake/Output Intake/Output: Intake & Output 11/08/24 11/09/24 11/10/24 11/11/24 23:59 23:59 23:59 23:59 Intake Total 1859 431 6187 720 Output Total 800 2500 1710 600 Balance 330 -2200 1490 120 Meds/Results Medications: Active Medications Generic Name Dose Route Start Last Admin Trade Name Freq PRN Reason Stop Dose Admin Aspirin 81 mg 11/07/24 09:00 11/10/24 08:30 Aspirin 81 Mg Chewable Tablet PO Not Given DAILY [facility] Docusate Sodium 100 mg 11/07/24 09:00 11/10/24 08:30 Docusate Sodium 100 Mg Capsule PO Not Given DAILY [facility] Famotidine 20 mg 11/07/24 09:00 11/10/24 08:30 Famotidine 20 Mg Tablet PO Not Given DAILY [facility] Ceftriaxone Sodium 1 gm in 50 mls @ 100 mls/hr 11/07/24 12:00 11/10/24 12:45 Rocephin 1 Gm/Ns 50 Ml IVPB Infused Q24H [facility] Infusion Dextrose/Sodium Chloride 1,000 mls @ 100 mls/hr 11/09/24 13:05 11/11/24 00:37 Dextrose 5% Sodium Chloride 0.45% IV CONT 100 mls/hr .Q10H SUDEEP Administration Levothyroxine Sodium 112 mcg 11/07/24 06:30 11/11/24 06:00 Levothyroxine Sodium 112 Mcg Tablet PO 112 mcg DAILY@0630 [facility] Administration Loratadine 10 mg 11/07/24 09:00 11/10/24 08:30 Loratadine 10 Mg Tablet PO Not Given DAILY [facility] Pyridoxine HCl 100 mg 11/07/24 09:00 11/10/24 08:30 Pyridoxine Hcl 50 Mg Tablet PO Not Given DAILY [facility] Simethicone 80 mg 11/07/24 09:00 11/10/24 17:36 Simethicone 80 Mg Tab.Chew PO Not Given BID [facility] Radiology Results: ITS Impressions Chest X-Ray 11/06/24 11:04 IMPRESSION: 1. Airspace and interstitial opacities in right mid and lower lung zones, consistent with pneumonia versus mild pulmonary edema. Head/Neck CTA 11/06/24 11:24 IMPRESSION: 1. 50% stenosis of the right carotid bulb relative to normal distal artery lumen diameter (NASCET criteria). 2. Atherosclerotic plaque with 0% stenosis of the left carotid bulb relative to normal distal artery lumen diameter. 3. Left vertebral artery is dominant with potentially minimally significant stenosis at the proximalmost and diminutive distalmost right vertebral artery. Otherwise unremarkable cerebral CT angiogram with no other hemodynamically significant stenosis, aneurysm or thrombosis. 4. Normal aging brain. No acute intracranial process or abnormally enhancing brain lesions. 5. Mild pulmonary edema in the visualized upper lungs. Modified Barium Swallow 11/09/24 10:13 IMPRESSION: Pharyngeal dysphagia with laryngeal penetration with aspiration during the swallow with solids but with more frequent laryngeal penetration following the swallow resulting from backflow from a large Zenker's diverticulum. Please correlate with speech pathologist findings and specific feeding recommendations. Labs Labs: Laboratory Results - last 24 hr 11/11/24 06:48 WBC 7.3 RBC 4.17 L Hgb 12.8 L Hct 39.6 L MCV 95.0 MCH 30.7 MCHC 32.3 RDW 12.4 Plt Count 214 MPV 10.3 Immature Gran % (Auto) 0.3 Neut % (Auto) 65.3 Lymph % (Auto) 20.5 Bland % (Auto) 6.6 Eos % (Auto) 6.8 H Baso % (Auto) 0.5 Lymph # (Auto) 1.50 Bland # (Auto) 0.5 Eos # (Auto) 0.5 H Baso # (Auto) 0.0 Abs Immat Gran (auto) 0.02 Absolute Neuts (auto) 4.8 Absolute Nucleated RBC 0.000 Nucleated RBC % 0.0 Sodium 141 Potassium 3.9 Chloride 104 Carbon Dioxide 29 Anion Gap 8 BUN 16 Creatinine 1.03 Estim Creat Clear Calc 52 Estimated GFR > 60 Glucose 115 H Calcium 9.0 Magnesium 2.2 Total Bilirubin 0.4 AST 22 ALT 20 Alkaline Phosphatase 80 Total Protein 7.0 Albumin 3.7
[2024-11-11] MEDS: DOCUSATE SODIUM LIQ 100 MG/10 ML UDC PO (09:34)
[2024-11-11] MEDS: FAMOTIDINE 20 MG TABLET FEED TUBE (09:34)
[2024-11-11] MEDS: LORATADINE 10 MG TABLET FEED TUBE (09:34)
[2024-11-11] MEDS: ASPIRIN 81 MG CHEWABLE TABLET FEED TUBE (09:34)
[2024-11-11] MEDS: SIMETHICONE 80 MG TAB.CHEW FEED TUBE ×2 (09:34→17:55)
[2024-11-11] MEDS: PYRIDOXINE HCL 50 MG TABLET 100 MG FEED TUBE (09:35)
[2024-11-11] MEDS: AMOXICILLIN/CLAVULANATE K SUSP 400-57 MG/5 ML 5 ML UD 875 MG FEED TUBE ×2 (12:25→20:53)
--- NOTE | 2024-11-11 16:20 | PM.IMPN ---
Progress Note: A&P Assessment and Plan (1) Pulmonary edema: Qualifiers: Chronicity: acute Qualified Code(s): J81.0 - Acute pulmonary edema Code(s): J81.1 - Chronic pulmonary edema Status: Acute (2) Pneumonia: Qualifiers: Pneumonia type: due to unspecified organism Laterality: right Lung location: unspecified part of lung Qualified Code(s): J18.9 - Pneumonia, unspecified organism Code(s): J18.9 - Pneumonia, unspecified organism Status: Acute (3) Elevated troponin: Code(s): R79.89 - Other specified abnormal findings of blood chemistry Status: Acute (4) Occasional tremors: Code(s): R25.1 - Tremor, unspecified Status: Acute (5) A-fib: Qualifiers: Atrial fibrillation type: unspecified Qualified Code(s): I48.91 - Unspecified atrial fibrillation Code(s): I48.91 - Unspecified atrial fibrillation Status: Acute (6) Chronic anticoagulation: Code(s): Z79.01 - [facility] (current) use of anticoagulants Status: Acute (7) Dizziness: Code(s): R42 - Dizziness and giddiness Status: Acute Plan Patient has x-ray findings concerning for pneumonia versus pulmonary edema. He does have a mild white count in his reports symptoms of coughing with eating. Differential includes to mucoid pneumonia versus aspiration. Patient was started on empiric antibiotic therapy with Rocephin and azithromycin in the ER. Will continue antibiotic therapy. Blood cultures have been obtained and are pending. Will request speech therapy evaluation for bedside swallow. Will repeat CBC in a.m.. Patient had elevated troponin but troponin profile trended down and has remained flat. He is not having any chest pain. Troponin elevation is likely due to a combination of patient has chronic heart failure with possible acute component given pulmonary edema noted on CT scan of the neck is in the lung apices. The patient received 1 dose of IV Lasix. He currently appears euvolemic at the time my evaluation without JVD and was stable lower extremity edema. W The patient's last echocardiogram within our system was July 2023. Patient does follow with Dr. Luna as outpatient. Is unclear if he may have had an outpatient echo more recently. Will consult Cardiology regarding murmur and pulmonary edema. Will continue patient's home Xarelto. Will repeat electrolyte panel and monitor strict I&O's. Will hold off on further diuretic therapy. ER provider [facility] patient follows with [facility]rology. There was some concern from the neurologist air the patient may have Parkinson's but the patient did not tolerate Sinemet. Patient does have chronic dysarthria that is worse when he 1st wakes up. A Neuro team at [facility] reviewed the patient's chart and bleeds at the patient's dizziness and ataxia chronic. He had an MRI of the brain 10/29/2024 demonstrating 1 small area of abnormality which they believe was chronic changes. The patient likely had worsening ataxia and instability due to weakness from acute infection and they felt patient was stable enough to stay here for treatment of underlying illness. Patient was resumed on his own levothyroxine. Patient has been admitted as observation status. 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 Speech on board. Zenker's diverticulum Noted on MPS several by speech therapy For PEG tube placement tomorrow GI is coordinating for endoscopic myomectomy procedure at [facility] Currently patient is NPO. Continue NG tube feeding. Parkinson Follows up with outpatient Neurology at [facility] Unable to tolerate carbidopa levodopa due to GI issues MRI of the brain on 10/29/2024 which showed one area of abnormality which was chronic in nature and was otherwise unremarkable Possibly his shaking is due to myoclonic jerks. ED contacted Dr. Ramsay the the neurologist who confirms the dizziness and ataxia or chronic Chronic dizziness Status post right tympanostomy tube which was placed in August by ENT at [facility] Hypertension Blood pressure consistently elevated Started on Lisinopril and HCTZ monitor DVT prophylaxis SCDs, patient is awaiting xarelto washout for a tube placement tomorrow. Subjective Date/time seen: 11/11/24 16:20 Interval history: Comfortable at bedside and waiting PEG tube placement tomorrow Review of Systems Review of Systems: 12 systems were reviewed with pertinent positives and negatives per HPI. Except as documented in the HPI, all other systems were reviewed and are negative. All systems reviewed & are unremarkable except as noted in HPI and below Constitutional: Constitutional: Reports no additional constitutional complaints Eyes: Eyes: Reports no additional eye complaints ENT: Reports system reviewed and no additional complaints, except as documented Cardiovascular: Cardiovascular: Reports no additional cardiovascular complaints Respiratory: Respiratory: Reports no additional respiratory complaints Gastrointestinal: Gastrointestinal: Reports no additional gastrointestinal complaints Musculoskeletal: Musculoskeletal: Reports no additional musculoskeletal complaints Integumentary/Breasts: Skin/Breast: Reports system reviewed and no additional complaints, except as docu Neurologic: Reports as per HPI Endocrine: Endocrine: Reports no additional endocrine complaints Hematologic/Lymphatic: Hematologic/Lymphatic: Reports no additional hematologic/lymphatic complaints Allergic/Immunologic: Allergic/Immunologic: Reports no additional allergic/immunologic complaints Exam Narrative: Weight 91.5 kg BMI 27.4 Const: General: comfortable Other: No acute distress, well-developed well-nourished, appears stated age, generalized weakness HENMT: Face/Nose/Sinus: Normal nares present Other: Head is normocephalic atraumatic, pupils are equal and reactive, extraocular movements are delayed but intact Eyes: Sclera: sclerae normal Other: Pupils are equal and reactive, extraocular movements intact but delayed, no scleral icterus Neck: Neck: supple and no JVD Other: No JVD, no lymphadenopathy, tracheostomy scar present Resp: Effort & Inspection: normal respiratory effort Auscultation: clear to auscultation bilaterally Other: Crackles at bilateral bases, frequent cough with deep inspiration Cardio: Rate: regular rate Rhythm: abnormal rhythm irregularly irregular Heart sounds: Murmur heart sound present Other: Irregularly irregular, rate controlled, 2+ bilateral radial pedal pulses, 2/6 systolic murmur GI: Auscultation: normal bowel sounds Other: Soft, nontender, nondistended, positive bowel sounds, ostomy draining in the left lower abdomen : Other: Pure wick catheter in place Skin: General skin exam: normal color Other: No pallor, non jaundice, chronic skin changes to bilateral lower extremities consistent with history of peripheral vascular disease Neuro: Other: Alert oriented to person, month, year, confused as to place, speech is slow and intermittently slurred, equal strength bilaterally but fine motor delay Extrem: Other: 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, 1+ pitting edema bilateral lower extremities Psych: Other: Pleasantly confused, cooperative, cracking jokes Objective Data Vital Signs Vital Signs: Vital Signs - 24 hr 11/10/24 20:00 11/10/24 20:00 11/10/24 22:08 Temperature 97.3 F L Pulse Rate 67 78 Respiratory Rate 18 Blood Pressure 167/89 H Pulse Oximetry 98 Oxygen Delivery Room Air 11/11/24 00:00 11/11/24 02:09 11/11/24 04:00 Temperature 97.0 F L Pulse Rate 60 73 67 Respiratory Rate 20 Blood Pressure 156/86 H Pulse Oximetry 98 Oxygen Delivery 11/11/24 06:00 11/11/24 08:05 11/11/24 12:05 Temperature 97.1 F L Pulse Rate 72 72 67 Respiratory Rate 18 Blood Pressure 169/77 H Pulse Oximetry 97 Oxygen Delivery 11/11/24 14:57 Temperature 97.9 F Pulse Rate 82 Respiratory Rate 24 H Blood Pressure 176/95 H Pulse Oximetry 98 Oxygen Delivery Intake/Output Intake/Output: Intake & Output 11/08/24 11/09/24 11/10/24 11/11/24 23:59 23:59 23:59 23:59 Intake Total 5173 479 6549 1860 Output Total 800 2500 1710 1600 Balance 330 -2200 1490 260 Meds/Results Medications: Active Medications Generic Name Dose Route Start Last Admin Trade Name Freq PRN Reason Stop Dose Admin Amoxicillin/Clavulanate Potassium 875 mg 11/11/24 10:55 11/11/24 12:25 Amoxicillin/Clavulanate K Susp 400-57 Mg/5 Ml 5 Ml Ud FEED TUBE 11/12/24 21:01 875 mg Q12HR SUDEEP Administration Aspirin 81 mg 11/11/24 09:00 11/11/24 09:34 Aspirin 81 Mg Chewable Tablet FEED TUBE 81 mg DAILY SUDEEP Administration Docusate Sodium 100 mg 11/12/24 09:00 Docusate Sodium Liq 100 Mg/10 Ml Udc FEED TUBE DAILY SUDEEP Famotidine 20 mg 11/11/24 09:00 11/11/24 09:34 Famotidine 20 Mg Tablet FEED TUBE 20 mg DAILY SUDEEP Administration Lactated Ringer's 1,000 mls @ 150 mls/hr 11/11/24 14:00 Lr - Lactated Ringers Iv IV CONT .Q6H40M SUDEEP Levothyroxine Sodium 112 mcg 11/12/24 06:30 Levothyroxine Sodium 112 Mcg Tablet FEED TUBE DAILY@0630 SUDEEP Loratadine 10 mg 11/11/24 09:00 11/11/24 09:34 Loratadine 10 Mg Tablet FEED TUBE 10 mg DAILY SUDEEP Administration Pyridoxine HCl 100 mg 11/11/24 09:00 11/11/24 09:35 Pyridoxine Hcl 50 Mg Tablet FEED TUBE 100 mg DAILY SUDEEP Administration Simethicone 80 mg 11/11/24 09:00 11/11/24 09:34 Simethicone 80 Mg Tab.Chew FEED TUBE 80 mg BID SUDEEP Administration Radiology Results: ITS Impressions Chest X-Ray 11/06/24 11:04 IMPRESSION: 1. Airspace and interstitial opacities in right mid and lower lung zones, consistent with pneumonia versus mild pulmonary edema. Head/Neck CTA 11/06/24 11:24 IMPRESSION: 1. 50% stenosis of the right carotid bulb relative to normal distal artery lumen diameter (NASCET criteria). 2. Atherosclerotic plaque with 0% stenosis of the left carotid bulb relative to normal distal artery lumen diameter. 3. Left vertebral artery is dominant with potentially minimally significant stenosis at the proximalmost and diminutive distalmost right vertebral artery. Otherwise unremarkable cerebral CT angiogram with no other hemodynamically significant stenosis, aneurysm or thrombosis. 4. Normal aging brain. No acute intracranial process or abnormally enhancing brain lesions. 5. Mild pulmonary edema in the visualized upper lungs. Modified Barium Swallow 11/09/24 10:13 IMPRESSION: Pharyngeal dysphagia with laryngeal penetration with aspiration during the swallow with solids but with more frequent laryngeal penetration following the swallow resulting from backflow from a large Zenker's diverticulum. Please correlate with speech pathologist findings and specific feeding recommendations. Labs Labs: Laboratory Results - last 24 hr 11/11/24 06:48 WBC 7.3 RBC 4.17 L Hgb 12.8 L Hct 39.6 L MCV 95.0 MCH 30.7 MCHC 32.3 RDW 12.4 Plt Count 214 MPV 10.3 Immature Gran % (Auto) 0.3 Neut % (Auto) 65.3 Lymph % (Auto) 20.5 [place] % (Auto) 6.6 Eos % (Auto) 6.8 H Baso % (Auto) 0.5 Lymph # (Auto) 1.50 [place] # (Auto) 0.5 Eos # (Auto) 0.5 H Baso # (Auto) 0.0 Abs Immat Gran (auto) 0.02 Absolute Neuts (auto) 4.8 Absolute Nucleated RBC 0.000 Nucleated RBC % 0.0 Sodium 141 Potassium 3.9 Chloride 104 Carbon Dioxide 29 Anion Gap 8 BUN 16 Creatinine 1.03 Estim Creat Clear Calc 52 Estimated GFR > 60 Glucose 115 H Calcium 9.0 Magnesium 2.2 Total Bilirubin 0.4 AST 22 ALT 20 Alkaline Phosphatase 80 Total Protein 7.0 Albumin 3.7 Quality VTE Prophylaxis VTE prophylaxis: pharmacologic ordered (Continue home Xarelto.)
[2024-11-11] MEDS: lisinopriL 5 MG TABLET FEED TUBE (17:55)
[2024-11-11] MEDS: hydroCHLOROthiazide 12.5 MG CAPSULE FEED TUBE (17:55)
[2024-11-12] VITALS (7 sets, daily range): BP systolic 139–170; BP diastolic 76–90; PULSE 66–90; RESP 16–22; TEMP 36.2–36.5; O2SAT 95–99
[2024-11-12] MEDS: LEVOTHYROXINE SODIUM 112 MCG TABLET FEED TUBE (06:04)
[2024-11-12 06:32] LABS: Basophils Absolute Auto 0.1 K/mm3 (0.0-0.1); Basophils Percent Auto 0.6 % (0.2-1.2); Eosinophils Absolute Auto 0.5 K/mm3 (0-0.3); Hematocrit 41.4 % (42.0-52.0); Hemoglobin 13.4 g/dL (14.0-18.0); Immature Granulocyte Absolute 0.03 K/mm3 (0.00-0.031); Immature Granulocyte Percent A 0.4 % (0-0.5); Lymphocytes Absolute Auto 1.65 K/mm3 (0.9-3.2); Lymphocytes Percent Auto 21.3 % (18.3-44.2); Mean Corpuscular HGB Conc 32.4 g/dl (32-36); Mean Corpuscular Hemoglobin 30.6 pg (26-34); Mean Corpuscular Volume 94.5 fl (80-100); Mean Platelet Volume 10.6 fl (7.4-10.4); Monocytes Absolute Auto 0.5 K/mm3 (0.1-0.6); Monocytes Percent Auto 6.3 % (2.6-8.5); Neutrophils Percent Auto 64.4 % (45.5-73.1); Platelet Count Result 213 k/mm3 (150-375); Red Blood Count 4.38 M/mm3 (4.6-6.20); Red Cell Distribution Width 12.5 % (11.5-14.5); White Blood Count 7.8 K/mm3 (4.5-10.0)
[2024-11-12 06:48] LABS: Alanine Aminotransferase 20 U/L (6-50); Albumin Level 3.9 g/dL (3.5-5.1); Alkaline Phosphatase 89 U/L (38-126); Anion Gap 11 mmol/L (4-12); Aspartate Amino Transferase 27 U/L (17-59); Bilirubin,Total 0.8 mg/dL (0.2-1.3); Blood Urea Nitrogen 18 mg/dL (9-20); Calcium 9.2 mg/dL (8.4-10.2); Carbon Dioxide 26 mmol/L (22-30); Chloride 103 mmol/L (98-107); Estimated CRCL calculation 48 ml/min; Estimated Glomerular Filt Rate > 60; Glucose 97 mg/dL (65-110); Magnesium 2.2 mg/dL (1.6-2.3); Sodium 140 mmol/L (137-145)
[2024-11-12] MEDS: LACTATED RINGERS 1,000 ML 150 ML IV CONT (12:50)
[2024-11-12] MEDS: ceFAZolin 1 GM/NS 50 ML 1 GM/50 ML BAG IVPB (12:51)
--- NOTE | 2024-11-12 12:55 | PCDIET ---
Patient NPO for PEG today. Tube feedings recommendations: Continuous feedings: Jevity 1.5 at 65 ml/hr for (22 hours) with 100 ml q 4 hour water flush. Bolus feedings: 350 ml QID of Jevity 1.5 with water flush of 150 ml. Will monitor intake, labs, diet orders, meds every Saturday and Saturday.
--- NOTE | 2024-11-12 12:57 | P.PNAN_ITS ---
Anes - Initial Pre Proc Eval Procedure: Operation Date: 11/12/24 14:00 Proposed Procedures p Percutaneous Endoscopic Gastrostomy - Isrrael Martinez MD Date/Time: 11/12/24 12:57 Surgeon: Stuart Weiss MD Pre Op Diagnosis: Pneumonia Patient Data Age: 84 Gender: M Height: 1.83 m Weight: 90.1 kg Last Vital Signs Temp 97.2 F L 11/12/24 12:52 Pulse 84 11/12/24 12:52 Resp 16 11/12/24 12:52 BP 170/85 H 11/12/24 12:52 Pulse Ox 97 11/12/24 12:52 O2 Del Method Room Air 11/12/24 12:52 Allergies Allergy/AdvReac Type Severity Reaction Status Date / Time Lwfsdif-XSR-YfI Reductase Allergy Unknown Joint Pain Verified 11/06/24 10:13 Inhibitor (Xasvpic-Oie-Ush & MUSCLE Reductase Inhibitor) WEAKNESS diphenhydramine (From AdvReac Agitated Verified 11/06/24 10:13 Benadryl) halobetasol AdvReac Rash Verified 09/03/24 10:25 quetiapine (From Seroquel) AdvReac Agitated Verified 11/06/24 10:13 Home Medications ?Medication ?Instructions ?Recorded ?Confirmed ?Type loratadine 10 mg tablet (Claritin) 10 mg PO DAILY 05/15/22 11/06/24 History rivaroxaban 20 mg tablet (Xarelto) 20 mg PO QPM 07/30/23 11/06/24 History simethicone 62.5 mg oral strips 1 strip PO BID 12/02/23 11/06/24 History (Gas-X) aspirin 81 mg chewable tablet 1 tablet PO DAILY 01/06/24 11/06/24 History docusate sodium 100 mg capsule 100 mg PO DAILY 03/25/24 11/06/24 History (Stool Softener) pyridoxine (vitamin B6) 100 mg 100 mg PO DAILY 03/25/24 11/06/24 History tablet famotidine 20 mg tablet 20 mg PO DAILY #90 tabs 09/21/24 11/06/24 Rx nystatin 100,000 unit/gram topical 1 applic topical TID #60 grams 10/26/24 11/06/24 Rx powder levothyroxine 112 mcg tablet 112 mcg PO DAILY@0630 11/06/24 11/06/24 History Laboratory Tests 11/12/24 06:18 WBC 7.8 K/mm3 (4.5-10.0) RBC 4.38 L M/mm3 (4.6-6.20) Hgb 13.4 L g/dL (14.0-18.0) Hct 41.4 L % (42.0-52.0) MCV 94.5 fl (80-100) MCH 30.6 pg (26-34) MCHC 32.4 g/dl (32-36) RDW 12.5 % (11.5-14.5) Plt Count 213 k/mm3 (150-375) MPV 10.6 H fl (7.4-10.4) Immature Gran % (Auto) 0.4 % (0-0.5) Neut % (Auto) 64.4 % (45.5-73.1) Lymph % (Auto) 21.3 % (18.3-44.2) [place] % (Auto) 6.3 % (2.6-8.5) Eos % (Auto) 7.0 H % (0-4.4) Baso % (Auto) 0.6 % (0.2-1.2) Lymph # (Auto) 1.65 K/mm3 (0.9-3.2) [place] # (Auto) 0.5 K/mm3 (0.1-0.6) Eos # (Auto) 0.5 H K/mm3 (0-0.3) Baso # (Auto) 0.1 K/mm3 (0.0-0.1) Abs Immat Gran (auto) 0.03 K/mm3 (0.00-0.031) Absolute Neuts (auto) 5.0 K/mm3 (1.3-6.7) Absolute Nucleated RBC 0.000 K/mm3 (0.0-0.012) Nucleated RBC % 0.0 % (0.0-0.2) Sodium 140 mmol/L (137-145) Potassium 4.0 mmol/L (3.4-5.0) Chloride 103 mmol/L (98-107) Carbon Dioxide 26 mmol/L (22-30) Anion Gap 11 mmol/L (4-12) BUN 18 mg/dL (9-20) Creatinine 1.13 mg/dL (0.7-1.3) Estim Creat Clear Calc 48 ml/min Estimated GFR > 60 (59 - ) Glucose 97 mg/dL (65-110) Calcium 9.2 mg/dL (8.4-10.2) Magnesium 2.2 mg/dL (1.6-2.3) Total Bilirubin 0.8 mg/dL (0.2-1.3) AST 27 U/L (17-59) ALT 20 U/L (6-50) Alkaline Phosphatase 89 U/L (38-126) Total Protein 7.0 g/dL (6.3-8.2) Albumin 3.9 g/dL (3.5-5.1) Patient hx anesthesia problems: none Family hx anesthesia problems: none Results Review: All pre-operative results and documents have been reviewed as part of the pre- operative evaluation. [facility] Past Medical History Medical History Grade II diastolic dysfunction History of open sigmoidectomy Vitamin D deficiency, unspecified Paroxysmal atrial fibrillation Brain bleed Prostate CA Basal cell carcinoma Hepatitis B Prediabetes Hypothyroid Constipation GERD (gastroesophageal reflux disease) Hyperlipidemia Hypertension CAD (coronary artery disease) Myocardial infarct Seizures Surgical History Surgical History S/P hernia repair 08/02/2023 had open repair of right inguinal hernia due to 70% of the patient's small bowel contents being within the hernia, complicated by postoperative abscess requiring percutaneous drain, 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 The patient had postoperative shock and remained intubated for a prolonged period requiring tracheostomy and transfer to LTAC 10/09/2023 S/P percutaneous endoscopic gastrostomy (PEG) tube placement (09/25/23) With subsequent removal History of tracheostomy 09/13/2023 with subsequent removal History of colostomy Status post Willy procedure 09/04/23 Extensive (2 1/2 hrs) adhesiolysis, sigmoidectomy with end descending colostomy and Iwlly procedure Hx of local excision of skin lesion H/O arthroscopy lt knee H/O prostatectomy Hx of colonoscopy 2012 - Dr. Yen Hx of CABG 11/2009 - triple bypass surgery at [facility] Family History Family History Father Malignant neoplasm of prostate Sibling Ovarian cancer Mother , epilepsy No problems noted. Sibling No problems noted. Social History Social History Social History: Patient lives with his Cherie. He has a distant history of smoking a 12 pack per year history. He used to rarely drinks alcohol and only in moderation. Code status: Full code Surrogate decision maker: Sid () Smoking packs per day: 2 Smoking cigarettes per day: 40.0 Years smoked: 12 Smoking pack-years: 24.00 Smoking status: Former smoker Tobacco type: cigarettes Second hand tobacco smoke exposure: No Smoking end date: 09/23/70 Alcohol intake: never Alcohol use details: RARELY - 1/2 CASE BEER/YR Substance use: never Substance use type: does not use Do You Feel Safe in your Home?: Yes Lack of Transportation: No Lack of Food: Never True Current Housing: I Have Housing Concerned About Future Housing: No Difficulty Paying Gas/Electric Bills: No Difficulty Paying for Meds: No Currently Unemployed: No Education: High School Diploma/GED Difficulty w/ Childcare or Family Care: No Living arrangements: with family Occupation/Education: retired 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/education 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 Complicated history reviewed. Hx CVA, HTN, hyperlipidemia, neurologic disorder, now w dysarthia. Cardio note appreciated, hx CABG/chr afib, recent hx pneumonia vs pulmon edema. Informed Consent: The patient's anesthetic plan and its attendant risks and benefits were discussed with the patient/family/POA. Questions were solicited and answers provided to the satisfaction of the patient/family/POA.
[2024-11-12] MEDS: BENZOCAINE (*SP) 60 ML SPRAY CAN (HURRICAINE) 1 SPRAY MUCOUS MEM (13:01)
--- NOTE | 2024-11-12 14:09 | PC.NURSE ---
pt returned from GI lab on stretcher.
--- NOTE | 2024-11-12 14:35 | P.PNIM_ITS ---
Progress Note: A&P Assessment and Plan (1) Pulmonary edema: Qualifiers: Chronicity: acute Qualified Code(s): J81.0 - Acute pulmonary edema Code(s): J81.1 - Chronic pulmonary edema Status: Acute (2) Pneumonia: Qualifiers: Pneumonia type: due to unspecified organism Laterality: right Lung location: unspecified part of lung Qualified Code(s): J18.9 - Pneumonia, unspecified organism Code(s): J18.9 - Pneumonia, unspecified organism Status: Acute (3) Elevated troponin: Code(s): R79.89 - Other specified abnormal findings of blood chemistry Status: Acute (4) Occasional tremors: Code(s): R25.1 - Tremor, unspecified Status: Acute (5) A-fib: Qualifiers: Atrial fibrillation type: unspecified Qualified Code(s): I48.91 - Unspecified atrial fibrillation Code(s): I48.91 - Unspecified atrial fibrillation Status: Acute (6) Chronic anticoagulation: Code(s): Z79.01 - residential (current) use of anticoagulants Status: Acute (7) Dizziness: Code(s): R42 - Dizziness and giddiness Status: Acute Plan Patient has x-ray findings concerning for pneumonia versus pulmonary edema. He does have a mild white count in his reports symptoms of coughing with eating. Differential includes to mucoid pneumonia versus aspiration. Patient was started on empiric antibiotic therapy with Rocephin and azithromycin in the ER. Will continue antibiotic therapy. Blood cultures have been obtained and are pending. Will request speech therapy evaluation for bedside swallow. Will repeat CBC in a.m.. Patient had elevated troponin but troponin profile trended down and has remained flat. He is not having any chest pain. Troponin elevation is likely due to a combination of patient has chronic heart failure with possible acute component given pulmonary edema noted on CT scan of the neck is in the lung apices. The patient received 1 dose of IV Lasix. He currently appears euvolemic at the time my evaluation without JVD and was stable lower extremity edema. W The patient's last echocardiogram within our system was July 2023. Patient does follow with Dr. Luna as outpatient. Is unclear if he may have had an outpatient echo more recently. Will consult Cardiology regarding murmur and pulmonary edema. Will continue patient's home Xarelto. Will repeat electrolyte panel and monitor strict I&O's. Will hold off on further diuretic therapy. ER provider contacted [facility] the patient follows with Neurology. There was some concern from the neurologist air the patient may have Parkinson's but the patient did not tolerate Sinemet. Patient does have chronic dysarthria that is worse when he 1st wakes up. A Neuro team at [place] reviewed the patient's chart and bleeds at the patient's dizziness and ataxia chronic. He had an MRI of the brain 10/29/2024 demonstrating 1 small area of abnormality which they believe was chronic changes. The patient likely had worsening ataxia and instability due to weakness from acute infection and they felt patient was stable enough to stay here for treatment of underlying illness. Patient was resumed on his own levothyroxine. Patient has been admitted as observation status. 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 Speech on board. Zenker's diverticulum Noted on MPS several by speech therapy For PEG tube placement today GI is coordinating for endoscopic myomectomy procedure at [facility] Currently patient is NPO. Continue NG tube feeding. Parkinson Follows up with outpatient Neurology at [facility] Unable to tolerate carbidopa levodopa due to GI issues MRI of the brain on 10/29/2024 which showed one area of abnormality which was chronic in nature and was otherwise unremarkable Possibly his shaking is due to myoclonic jerks. ED contacted Dr. Ramsay the the neurologist who confirms the dizziness and ataxia or chronic Chronic dizziness Status post right tympanostomy tube which was placed in August by ENT at [facility] Hypertension Blood pressure consistently elevated Started on Lisinopril and HCTZ monitor DVT prophylaxis SCDs, restart Xarelto after PEG tube placement Subjective Date/time seen: 11/12/24 14:35 Interval history: Comfortable at bedside and for PEG tube today Review of Systems Review of Systems: 12 systems were reviewed with pertinent positives and negatives per HPI. Except as documented in the HPI, all other systems were reviewed and are negative. All systems reviewed & are unremarkable except as noted in HPI and below Constitutional: Constitutional: Reports no additional constitutional complaints Eyes: Eyes: Reports no additional eye complaints ENT: Reports system reviewed and no additional complaints, except as documented Cardiovascular: Cardiovascular: Reports no additional cardiovascular complaints Respiratory: Respiratory: Reports no additional respiratory complaints Gastrointestinal: Gastrointestinal: Reports no additional gastrointestinal complaints Musculoskeletal: Musculoskeletal: Reports no additional musculoskeletal complaints Integumentary/Breasts: Skin/Breast: Reports system reviewed and no additional complaints, except as docu Neurologic: Reports as per HPI Endocrine: Endocrine: Reports no additional endocrine complaints Hematologic/Lymphatic: Hematologic/Lymphatic: Reports no additional hematologic/lymphatic complaints Allergic/Immunologic: Allergic/Immunologic: Reports no additional allergic/immunologic complaints Exam Narrative: Weight 91.5 kg BMI 27.4 Const: General: comfortable Other: No acute distress, well-developed well-nourished, appears stated age, generalized weakness HENMT: Face/Nose/Sinus: Normal nares present Other: Head is normocephalic atraumatic, pupils are equal and reactive, extraocular movements are delayed but intact Eyes: Sclera: sclerae normal Other: Pupils are equal and reactive, extraocular movements intact but delayed, no scleral icterus Neck: Neck: supple and no JVD Other: No JVD, no lymphadenopathy, tracheostomy scar present Resp: Effort & Inspection: normal respiratory effort Auscultation: clear to auscultation bilaterally Other: Crackles at bilateral bases, frequent cough with deep inspiration Cardio: Rate: regular rate Rhythm: abnormal rhythm irregularly irregular Heart sounds: Murmur heart sound present Other: Irregularly irregular, rate controlled, 2+ bilateral radial pedal pulses, 2/6 systolic murmur GI: Auscultation: normal bowel sounds Other: Soft, nontender, nondistended, positive bowel sounds, ostomy draining in the left lower abdomen : Other: Pure wick catheter in place Skin: General skin exam: normal color Other: No pallor, non jaundice, chronic skin changes to bilateral lower extremities consistent with history of peripheral vascular disease Neuro: Other: Alert oriented to person, month, year, confused as to place, speech is slow and intermittently slurred, equal strength bilaterally but fine motor delay Extrem: Other: 4/5 associate civil engineer strength bilateral, 1+ pitting edema bilateral lower extremities Psych: Other: Pleasantly confused, cooperative, cracking jokes Objective Data Vital Signs Vital Signs: Vital Signs - 24 hr 11/11/24 14:57 11/11/24 20:00 11/11/24 21:08 Temperature 97.9 F 97.2 F L Pulse Rate 82 67 Respiratory Rate 24 H 18 Blood Pressure 176/95 H 155/82 H Pulse Oximetry 98 98 Oxygen Delivery Room Air Oxygen Flow Rate 11/12/24 06:00 11/12/24 12:52 11/12/24 13:24 Temperature 97.7 F 97.2 F L Pulse Rate 66 84 90 Respiratory Rate 16 16 22 H Blood Pressure 139/82 170/85 H 169/90 H Pulse Oximetry 96 97 99 Oxygen Delivery Room Air Simple Face Mask Oxygen Flow Rate 6 11/12/24 13:34 11/12/24 13:44 Temperature Pulse Rate 81 85 Respiratory Rate 22 H 18 Blood Pressure 157/89 H 150/85 H Pulse Oximetry 99 95 Oxygen Delivery Simple Face Mask Room Air Oxygen Flow Rate 4 Intake/Output Intake/Output: Intake & Output 11/09/24 11/10/24 11/11/24 11/12/24 23:59 23:59 23:59 23:59 Intake Total 300 3200 2906 150 Output Total 2500 1710 2300 700 Balance -2200 1490 606 -550 Meds/Results Medications: Active Medications Generic Name Dose Route Start Last Admin Trade Name Freq PRN Reason Stop Dose Admin Amoxicillin/Clavulanate Potassium 875 mg 11/12/24 21:00 Amoxicillin/Clavulanate K Susp 400-57 Mg/5 Ml 5 Ml Ud FEED TUBE 11/13/24 09:01 Q12HR SUDEEP Aspirin 81 mg 11/11/24 09:00 11/11/24 09:34 Aspirin 81 Mg Chewable Tablet FEED TUBE 81 mg DAILY SUDEEP Administration Docusate Sodium 100 mg 11/12/24 09:00 Docusate Sodium Liq 100 Mg/10 Ml Udc FEED TUBE DAILY SUDEEP Famotidine 20 mg 11/11/24 09:00 11/11/24 09:34 Famotidine 20 Mg Tablet FEED TUBE 20 mg DAILY SUDEEP Administration Hydrochlorothiazide 12.5 mg 11/11/24 16:30 11/11/24 17:55 Hydrochlorothiazide 12.5 Mg Capsule FEED TUBE 12.5 mg QAM SUDEEP Administration Levothyroxine Sodium 112 mcg 11/12/24 06:30 11/12/24 06:04 Levothyroxine Sodium 112 Mcg Tablet FEED TUBE 112 mcg DAILY@0630 SUDEEP Administration Lisinopril 5 mg 11/11/24 16:30 11/11/24 17:55 Lisinopril 5 Mg Tablet FEED TUBE 5 mg QAM SUDEEP Administration Loratadine 10 mg 11/11/24 09:00 11/11/24 09:34 Loratadine 10 Mg Tablet FEED TUBE 10 mg DAILY SUDEEP Administration Pyridoxine HCl 100 mg 11/11/24 09:00 11/11/24 09:35 Pyridoxine Hcl 50 Mg Tablet FEED TUBE 100 mg DAILY SUDEEP Administration Simethicone 80 mg 11/11/24 09:00 11/11/24 17:55 Simethicone 80 Mg Tab.Chew FEED TUBE 80 mg BID SUDEEP Administration Radiology Results: ITS Impressions Chest X-Ray 11/06/24 11:04 IMPRESSION: 1. Airspace and interstitial opacities in right mid and lower lung zones, consistent with pneumonia versus mild pulmonary edema. Head/Neck CTA 11/06/24 11:24 IMPRESSION: 1. 50% stenosis of the right carotid bulb relative to normal distal artery lumen diameter (NASCET criteria). 2. Atherosclerotic plaque with 0% stenosis of the left carotid bulb relative to normal distal artery lumen diameter. 3. Left vertebral artery is dominant with potentially minimally significant stenosis at the proximalmost and diminutive distalmost right vertebral artery. Otherwise unremarkable cerebral CT angiogram with no other hemodynamically significant stenosis, aneurysm or thrombosis. 4. Normal aging brain. No acute intracranial process or abnormally enhancing brain lesions. 5. Mild pulmonary edema in the visualized upper lungs. Modified Barium Swallow 11/09/24 10:13 IMPRESSION: Pharyngeal dysphagia with laryngeal penetration with aspiration during the swallow with solids but with more frequent laryngeal penetration following the swallow resulting from backflow from a large Zenker's diverticulum. Please correlate with speech pathologist findings and specific feeding recommendations. Labs Labs: Laboratory Results - last 24 hr 11/12/24 06:18 WBC 7.8 RBC 4.38 L Hgb 13.4 L Hct 41.4 L MCV 94.5 MCH 30.6 MCHC 32.4 RDW 12.5 Plt Count 213 MPV 10.6 H Immature Gran % (Auto) 0.4 Neut % (Auto) 64.4 Lymph % (Auto) 21.3 [place] % (Auto) 6.3 Eos % (Auto) 7.0 H Baso % (Auto) 0.6 Lymph # (Auto) 1.65 [place] # (Auto) 0.5 Eos # (Auto) 0.5 H Baso # (Auto) 0.1 Abs Immat Gran (auto) 0.03 Absolute Neuts (auto) 5.0 Absolute Nucleated RBC 0.000 Nucleated RBC % 0.0 Sodium 140 Potassium 4.0 Chloride 103 Carbon Dioxide 26 Anion Gap 11 BUN 18 Creatinine 1.13 Estim Creat Clear Calc 48 Estimated GFR > 60 Glucose 97 Calcium 9.2 Magnesium 2.2 Total Bilirubin 0.8 AST 27 ALT 20 Alkaline Phosphatase 89 Total Protein 7.0 Albumin 3.9 Quality VTE Prophylaxis VTE prophylaxis: pharmacologic ordered (Continue home Xarelto.)
--- NOTE | 2024-11-12 15:08 | WPDGIPROGNO ---
Progress Note: A&P Assessment and Plan (1) Zenker diverticulum: Code(s): K22.5 - Diverticulum of esophagus, acquired Status: Acute Assessment and Plan: Patient with Zenker's diverticulum now post PEG placement. Our staff is coordiating with [facility] for endoscopic treatment of this condition. Probably next week we will have news about appointment with Dr Callie Mendoza, who is the specialist. In the meantime, patient can be discharged home with tube feeding via PEG. Plan - Dietitian evaluation for the feeding formula for PEG - Discharge home - Will contact patient once appointment for Zenker's diverticulum is set up (possibly next week) Time Spent With Patient Time with patient: less than 15 minutes Subjective Date/time seen: 11/12/24 15:08 Interval history: See endoscopy report note - PEG was placed successfully. Objective Data Vital Signs Vital Signs: Vital Signs - 24 hr 11/11/24 20:00 11/11/24 21:08 11/12/24 06:00 Temperature 97.2 F L 97.7 F Pulse Rate 67 66 Respiratory Rate 18 16 Blood Pressure 155/82 H 139/82 Pulse Oximetry 98 96 Oxygen Delivery Room Air Oxygen Flow Rate 11/12/24 12:52 11/12/24 13:24 11/12/24 13:34 Temperature 97.2 F L Pulse Rate 84 90 81 Respiratory Rate 16 22 H 22 H Blood Pressure 170/85 H 169/90 H 157/89 H Pulse Oximetry 97 99 99 Oxygen Delivery Room Air Simple Face Mask Simple Face Mask Oxygen Flow Rate 6 4 11/12/24 13:44 Temperature Pulse Rate 85 Respiratory Rate 18 Blood Pressure 150/85 H Pulse Oximetry 95 Oxygen Delivery Room Air Oxygen Flow Rate Intake/Output Intake/Output: Intake & Output 11/09/24 11/10/24 11/11/24 11/12/24 23:59 23:59 23:59 23:59 Intake Total 300 3200 2906 150 Output Total 2500 1710 2300 700 Balance -2200 1490 606 -550 Meds/Results Medications: Active Medications Generic Name Dose Route Start Last Admin Trade Name Freq PRN Reason Stop Dose Admin Amoxicillin/Clavulanate Potassium 875 mg 11/12/24 21:00 Amoxicillin/Clavulanate K Susp 400-57 Mg/5 Ml 5 Ml Ud FEED TUBE 11/13/24 09:01 Q12HR SUDEEP Aspirin 81 mg 11/11/24 09:00 11/11/24 09:34 Aspirin 81 Mg Chewable Tablet FEED TUBE 81 mg DAILY SUDEEP Administration Docusate Sodium 100 mg 11/12/24 09:00 Docusate Sodium Liq 100 Mg/10 Ml Udc FEED TUBE DAILY SUDEEP Famotidine 20 mg 11/11/24 09:00 11/11/24 09:34 Famotidine 20 Mg Tablet FEED TUBE 20 mg DAILY SUDEEP Administration Hydrochlorothiazide 12.5 mg 11/11/24 16:30 11/11/24 17:55 Hydrochlorothiazide 12.5 Mg Capsule FEED TUBE 12.5 mg QAM SUDEEP Administration Levothyroxine Sodium 112 mcg 11/12/24 06:30 11/12/24 06:04 Levothyroxine Sodium 112 Mcg Tablet FEED TUBE 112 mcg DAILY@0630 SUDEEP Administration Lisinopril 5 mg 11/11/24 16:30 11/11/24 17:55 Lisinopril 5 Mg Tablet FEED TUBE 5 mg QAM SUDEEP Administration Loratadine 10 mg 11/11/24 09:00 11/11/24 09:34 Loratadine 10 Mg Tablet FEED TUBE 10 mg DAILY SUDEEP Administration Pyridoxine HCl 100 mg 11/11/24 09:00 11/11/24 09:35 Pyridoxine Hcl 50 Mg Tablet FEED TUBE 100 mg DAILY SUDEEP Administration Simethicone 80 mg 11/11/24 09:00 11/11/24 17:55 Simethicone 80 Mg Tab.Chew FEED TUBE 80 mg BID SUDEEP Administration Radiology Results: ITS Impressions Chest X-Ray 11/06/24 11:04 IMPRESSION: 1. Airspace and interstitial opacities in right mid and lower lung zones, consistent with pneumonia versus mild pulmonary edema. Head/Neck CTA 11/06/24 11:24 IMPRESSION: 1. 50% stenosis of the right carotid bulb relative to normal distal artery lumen diameter (NASCET criteria). 2. Atherosclerotic plaque with 0% stenosis of the left carotid bulb relative to normal distal artery lumen diameter. 3. Left vertebral artery is dominant with potentially minimally significant stenosis at the proximalmost and diminutive distalmost right vertebral artery. Otherwise unremarkable cerebral CT angiogram with no other hemodynamically significant stenosis, aneurysm or thrombosis. 4. Normal aging brain. No acute intracranial process or abnormally enhancing brain lesions. 5. Mild pulmonary edema in the visualized upper lungs. Modified Barium Swallow 11/09/24 10:13 IMPRESSION: Pharyngeal dysphagia with laryngeal penetration with aspiration during the swallow with solids but with more frequent laryngeal penetration following the swallow resulting from backflow from a large Zenker's diverticulum. Please correlate with speech pathologist findings and specific feeding recommendations. Labs Labs: Laboratory Results - last 24 hr 11/12/24 06:18 WBC 7.8 RBC 4.38 L Hgb 13.4 L Hct 41.4 L MCV 94.5 MCH 30.6 MCHC 32.4 RDW 12.5 Plt Count 213 MPV 10.6 H Immature Gran % (Auto) 0.4 Neut % (Auto) 64.4 Lymph % (Auto) 21.3 [place] % (Auto) 6.3 Eos % (Auto) 7.0 H Baso % (Auto) 0.6 Lymph # (Auto) 1.65 [place] # (Auto) 0.5 Eos # (Auto) 0.5 H Baso # (Auto) 0.1 Abs Immat Gran (auto) 0.03 Absolute Neuts (auto) 5.0 Absolute Nucleated RBC 0.000 Nucleated RBC % 0.0 Sodium 140 Potassium 4.0 Chloride 103 Carbon Dioxide 26 Anion Gap 11 BUN 18 Creatinine 1.13 Estim Creat Clear Calc 48 Estimated GFR > 60 Glucose 97 Calcium 9.2 Magnesium 2.2 Total Bilirubin 0.8 AST 27 ALT 20 Alkaline Phosphatase 89 Total Protein 7.0 Albumin 3.9
--- NOTE | 2024-11-12 16:48 | PC.NURSE ---
pt returned from GI lab with orders to resume tube feedings 6hours from procedure. Antibiotic time adjusted via pharmacy, medications will be given when tube feed diet resumes.
--- NOTE | 2024-11-12 18:14 | PC.NURSE ---
On 11/12/24, the student, Tameka Marc, provided care and completed [facility] documentation on this patient. I have reviewed the student's documentation and agree with the findings.
[2024-11-12] MEDS: PYRIDOXINE HCL 50 MG TABLET 100 MG FEED TUBE (21:00)
[2024-11-12] MEDS: ASPIRIN 81 MG CHEWABLE TABLET FEED TUBE (21:00)
[2024-11-12] MEDS: FAMOTIDINE 20 MG TABLET FEED TUBE (21:00)
[2024-11-12] MEDS: DOCUSATE SODIUM LIQ 100 MG/10 ML UDC FEED TUBE (21:00)
[2024-11-12] MEDS: SIMETHICONE 80 MG TAB.CHEW FEED TUBE (21:00)
[2024-11-12] MEDS: hydroCHLOROthiazide 12.5 MG CAPSULE FEED TUBE (21:01)
[2024-11-12] MEDS: lisinopriL 5 MG TABLET FEED TUBE (21:01)
[2024-11-12] MEDS: LORATADINE 10 MG TABLET FEED TUBE (21:01)
[2024-11-12] MEDS: AMOXICILLIN/CLAVULANATE K SUSP 400-57 MG/5 ML 5 ML UD 875 MG FEED TUBE (21:02)
[2024-11-13 06:00] VITALS: BP 132/67; PULSE 83; RESP 16; TEMP 36.6; O2SAT 97
[2024-11-13 06:14] LABS: Basophils Absolute Auto 0.1 K/mm3 (0.0-0.1); Basophils Percent Auto 0.5 % (0.2-1.2); Eosinophils Absolute Auto 0.5 K/mm3 (0-0.3); Eosinophils Percent Auto 4.7 % (0-4.4); Hematocrit 41.3 % (42.0-52.0); Hemoglobin 13.6 g/dL (14.0-18.0); Immature Granulocyte Absolute 0.03 K/mm3 (0.00-0.031); Immature Granulocyte Percent A 0.3 % (0-0.5); Lymphocytes Absolute Auto 1.77 K/mm3 (0.9-3.2); Lymphocytes Percent Auto 17.6 % (18.3-44.2); Mean Corpuscular HGB Conc 32.9 g/dl (32-36); Mean Corpuscular Volume 94.1 fl (80-100); Mean Platelet Volume 10.6 fl (7.4-10.4); Monocytes Absolute Auto 0.5 K/mm3 (0.1-0.6); Monocytes Percent Auto 5.4 % (2.6-8.5); Neutrophils Absolute Auto 7.2 K/mm3 (1.3-6.7); Neutrophils Percent Auto 71.5 % (45.5-73.1); Platelet Count Result 234 k/mm3 (150-375); Red Blood Count 4.39 M/mm3 (4.6-6.20); Red Cell Distribution Width 12.5 % (11.5-14.5)
[2024-11-13 06:17] LABS: Alanine Aminotransferase 18 U/L (6-50); Alkaline Phosphatase 91 U/L (38-126); Anion Gap 8 mmol/L (4-12); Aspartate Amino Transferase 25 U/L (17-59); Bilirubin,Total 0.9 mg/dL (0.2-1.3); Blood Urea Nitrogen 25 mg/dL (9-20); Calcium 9.4 mg/dL (8.4-10.2); Carbon Dioxide 29 mmol/L (22-30); Chloride 103 mmol/L (98-107); Estimated CRCL calculation 46 ml/min; Estimated Glomerular Filt Rate 59; Glucose 111 mg/dL (65-110); Magnesium 2.1 mg/dL (1.6-2.3); Potassium 3.9 mmol/L (3.4-5.0); Sodium 140 mmol/L (137-145)
[2024-11-13] MEDS: LEVOTHYROXINE SODIUM 112 MCG TABLET FEED TUBE (06:56)
[2024-11-13] MEDS: DOCUSATE SODIUM LIQ 100 MG/10 ML UDC FEED TUBE (08:37)
[2024-11-13] MEDS: ASPIRIN 81 MG CHEWABLE TABLET FEED TUBE (08:37)
[2024-11-13] MEDS: PYRIDOXINE HCL 50 MG TABLET 100 MG FEED TUBE (08:37)
[2024-11-13] MEDS: FAMOTIDINE 20 MG TABLET FEED TUBE (08:37)
[2024-11-13] MEDS: LORATADINE 10 MG TABLET FEED TUBE (08:37)
[2024-11-13] MEDS: hydroCHLOROthiazide 12.5 MG CAPSULE FEED TUBE (08:37)
[2024-11-13] MEDS: lisinopriL 5 MG TABLET FEED TUBE (08:37)
[2024-11-13] MEDS: SIMETHICONE 80 MG TAB.CHEW FEED TUBE (08:37)
[2024-11-13] MEDS: AMOXICILLIN/CLAVULANATE K SUSP 400-57 MG/5 ML 5 ML UD 875 MG FEED TUBE (08:38)
--- NOTE | 2024-11-13 13:21 | P.DS_ITS ---
DS: Admitting Diagnosis Discharge Date 11/13/24 Admitting Diagnosis Abnormal movements DS: Discharge Diagnosis Discharge Diagnosis (1) Protein-calorie malnutrition, severe: Code(s): E43 - Unspecified severe protein-calorie malnutrition Status: Acute (2) Aspiration pneumonia: Code(s): J69.0 - Pneumonitis due to inhalation of food and vomit Status: Acute (3) Acute respiratory failure: Qualifiers: Respiratory failure complication: hypoxia and hypercapnia Qualified Code(s): J96.01 - Acute respiratory failure with hypoxia; J96.02 - Acute resp iratory failure with hypercapnia Code(s): J96.00 - Acute respiratory failure, unspecified whether with hypoxia or hypercapnia Status: Acute DS: Summary Hospital Course Hospital Course: 84-year-old male with a complex past medical history including atrial fibrillation on chronic anticoagulation, hypothyroidism, coronary artery disease, seizures, and chronic vertigo and dysarthria who presented to the ER from home via EMS due to abnormal movements and slurred speech. The patient's helps provide majority of the history in addition to review of past medical records and ER physician report. The patient had woke up a couple of hours after falling asleep. He was off balance and shaking. Seemed to be falling from side to side when he was trying to sit up. He was also having some difficulty getting his words out. However patient does have chronic vertigo and chronic dysarthria that is usually worse when he 1st wakes up. His dysarthria had improved during the course of the ER visit. When I evaluated the patient 03:00 I had to wake him from sleep and he again had dysarthria that seemed to improve throughout the course of my interview. The patient's knows that the patient has had several days of cough. She has also noticed that he has been coughing with eating. He did have prior history of tracheostomy with subsequent removal in history of dysphagia last year following a prolonged hospital stay. The his reports that the patient used to have difficulty with food getting stuck. The patient denies sensation of globus. He has been having some chills interspersed with feeling warm but is been afebrile since admission. His reports that he has chronic lower extremity swelling in his lower extremities appear stable compared to baseline. She reports his legs will become purple in color if he lets his feet dangle. He denies any foot pain or calf pain. He has been having normal output from his ostomy. He has not had any recent ill contacts. His influenza, RSV and COVID PCR were negative. He denies any chest pain or palpitations. Patient was noted to be in AFib of presentation which seems to be his baseline heart rhythm. He is on chronic anticoagulation. His troponins in the ER were noted to be mildly elevated but he is not having any chest pain. He denies feeling short of breath. Patient was evaluated by neurology and patient's symptoms resolved with treating pneumonia. He was treated with antibiotics and Completed therapy wtih Augmentin. he was found to have Zenker's diverticulum for which GI was consulted. GI recommended PEG tube and Xarelto was held eventually Peg tube was placed and note on tube feeding and at goal. He was initially placed on NG tube temporarily prior to peg tube. Patient also had hypertension as his blood pressure was consistently high and was placed on Lisinopril and HCTZ, blood pressure much improved and he iwll augusta serrano with PCP. GI also set patient up for endsocpic repair of Zenker's diverticulum at [facility] and family has already made an appointment with the team. Patient was dicharged on Lisinopril and HCTZ. F/u with PCP in 3-5 days F/u with GI adn neuro as instructed Time Spent with Patient Time attestation: Total time spent providing and/or coordinating discharge services: DS: Data Data Completed and Pending Labs on day of discharge: Labs from last 24 hours 11/13/24 05:45 WBC 10.0 RBC 4.39 L Hgb 13.6 L Hct 41.3 L MCV 94.1 MCH 31.0 MCHC 32.9 RDW 12.5 Plt Count 234 MPV 10.6 H Immature Gran % (Auto) 0.3 Neut % (Auto) 71.5 Lymph % (Auto) 17.6 L [place] % (Auto) 5.4 Eos % (Auto) 4.7 H Baso % (Auto) 0.5 Lymph # (Auto) 1.77 [place] # (Auto) 0.5 Eos # (Auto) 0.5 H Baso # (Auto) 0.1 Abs Immat Gran (auto) 0.03 Absolute Neuts (auto) 7.2 H Absolute Nucleated RBC 0.000 Nucleated RBC % 0.0 Sodium 140 Potassium 3.9 Chloride 103 Carbon Dioxide 29 Anion Gap 8 BUN 25 H Creatinine 1.17 Estim Creat Clear Calc 46 Estimated GFR 59 Glucose 111 H Calcium 9.4 Magnesium 2.1 Total Bilirubin 0.9 AST 25 ALT 18 Alkaline Phosphatase 91 Total Protein 7.0 Albumin 4.0 Discharge Plan Discharge Attending physician on discharge: Kishore Ruvalcaba Consulting providers: Moises Pettit; Mustapha Martinez Discharging Clinician: Kishore Ruvalcaba Anticipated Discharge Date/Time: 11/13/24 13:14 Patient Disposition: Home Health Service Activity: as tolerated Diet: tube feeding Discharge Instructions: Per Care Coordination: [facility] ([phone]) will call to set up initial visit. F/u with GI as [facility] for Zenker's diverticulum repair pe dr Lamas Patient Instructions: Antibiotic Form, Safe Use of Anticoagulants (DC), Safe Use of Anticoagulants (GEN) Patient Language: Cuban Stand Alone Forms: General Discharge Information Follow-up/Referrals: Moises Pettit MD [Physician] - (Follow-up with cardiology as instructed.) Mustapha Martinez MD [Physician] - (Follow-up Neurology as instructed.) Demond Stark MD [Primary Care Provider] - (Follow with PCP 3-5 days) Anjum Lamas MD [Physician] - (F/u with GI as insturcted for onwards referral to [facility] ) Discharge Medications: New hydrochlorothiazide 12.5 mg Capsule 12.5 mg feeding tube QAM 30 Days Qty: 30 1RF lisinopril 5 mg Tablet 5 mg feeding tube QAM 30 Days Qty: 30 1RF Continued aspirin 81 mg tablet,chewable 1 tablet PO DAILY docusate sodium [Stool Softener] 100 mg capsule 100 mg PO DAILY pyridoxine (vitamin B6) 100 mg tablet 100 mg PO DAILY Gas-X 62.5 mg strip 1 strip PO BID Xarelto 20 mg Tablet 20 mg PO QPM Rx Instructions: must administer with evening meal loratadine [Claritin] 10 mg tablet 10 mg PO DAILY levothyroxine 112 mcg tablet 112 mcg PO DAILY@0630 famotidine 20 mg tablet 20 mg PO DAILY Qty: 90 0RF nystatin 100,000 unit/gram powder 1 applic topical TID Qty: 60 1RF Date of admission: 11/07/24 13:27 Primary Care Provider: Demond Stark Admitting Provider: Stuart Weiss Attending physician on admission: Stuart Weiss Condition: Stable
--- NOTE | 2024-11-13 13:27 | PCDIET ---
BOLUS FEEDING RECOMMENDATIONS: Bolus feedings: 350 ml QID of Jevity 1.5 with water flush of 150 ml QID. Provides 2100 kcal, 89 g protein, 1064 ml free water. 1684 ml free water total. Adequate for needs.
[2024-11-13 13:59] VITALS: BP 126/65; PULSE 86; RESP 24; TEMP 36.4; O2SAT 94
== END 2024-11-13 15:10 | disposition home health service (06) ==
LOC: ANHED 16:55 → ANHIMU 18:37 → ANH3MED 11-10 12:58 → ANH3MEDSUR 11-16 08:16
PROVIDERS: General Practice; Internal Medicine; Internal Medicine Gastroenterology; Admitting Provider Hospitalist; Emergency Provider Physician Assistant; PCP Family Medicine; Visit Provider Internal Medicine
PROC: 0DH63UZ Insertion of Feeding Device into Stomach, Percutaneous Approach (ICD-10-PCS; CPT 43246; principal; 2024-11-12 14:00)
DX: J69.0 Pneumonitis due to inhalation of food and vomit (principal); E43 Unspecified severe protein-calorie malnutrition; J96.01 Acute respiratory failure with hypoxia; J96.02 Acute respiratory failure with hypercapnia; I48.20 Chronic atrial fibrillation, unspecified; I25.10 Atherosclerotic heart disease of native coronary artery without angina pectoris; I10 Essential (primary) hypertension; E03.9 Hypothyroidism, unspecified; E78.5 Hyperlipidemia, unspecified; K22.2 Esophageal obstruction; K22.5 Diverticulum of esophagus, acquired; K44.9 Diaphragmatic hernia without obstruction or gangrene; K21.9 Gastro-esophageal reflux disease without esophagitis; R27.0 Ataxia, unspecified; R47.1 Dysarthria and anarthria; R25.1 Tremor, unspecified; Z20.822 Contact with and (suspected) exposure to COVID-19; I25.2 Old myocardial infarction; Z68.28 Body mass index [BMI] 28.0-28.9, adult; Z87.891 Personal history of nicotine dependence; Z79.82 Long term (current) use of aspirin; Z79.01 Long term (current) use of anticoagulants; Z95.1 Presence of aortocoronary bypass graft; Z93.3 Colostomy status
CPT/HCPCS: 36415; 43246; 43752; 70496; 70498; 71045; 80048; 80053; 81001; 82948; 83605; 83735; 83880; 84484; 85025; 85027; 85610; 85730; 87040; 87637; 92610; 92611; 93005; 96365; 96367; 96375; 97110; 97161; 97165; 97530; 99285; A9270; G0378; J0456; J0690; J0696; J1940; J2003; J2704; J7120; Q9967

== ENCOUNTER 2024-12-31 14:14 | Outpatient (CLI) | payer MEDICARE, SELFPAY ==
--- NOTE | ~2024-12-31 | XR_ITS ---
EXAMINATION: XR chest 2V 12/31/2024 14:39 INDICATION: Follow-up pneumonia PROCEDURE: 2 view chest COMPARISON: 11/06/2024 FINDINGS: The lungs are clear. Interval resolution of right basilar airspace disease. Status post med derek sternotomy for CABG. There is apical pleural thickening/scarring. The cardiomediastinal silhouett e is within normal limits. There are no pleural effusions. There is no pneumothorax suspected. Sta tus post median sternotomy for CABG. IMPRESSION: 1: NO ACUTE CARDIOPULMONARY DISEASE. Reviewed, dictated and finalized at location A.
--- OUTSIDE RECORDS SUMMARY | 2024-12-31 14:51 | XMS_ITS | Clinical Summary ---
Author Organization [facility] Facility Address [address] [place] [address] Care Team Providers Care Jewel Sawyer Name Role Phone Demond Stark MD Primary Care Provider [phone] Social History Tobacco Use Types Packs/Day Years Used Date Smoking Tobacco: Never Assessed Sex and Gender Information Value Date Recorded Sex Assigned at Not on file Legal Sex Male 1:20 PM EDT Gender Identity Not on file Sexual Orientation Not on file Plan of Treatment Health Maintenance Due Date Last Done Comments Pneumococcal Vaccine: 50+ Years (1 of 2 - PCV) 946 Hepatitis B Vaccine (1 of 3 - Risk 3-dose series) 09/1999 Diabetes: Hemoglobin A1C 11/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
--- OUTSIDE RECORDS SUMMARY | 2024-12-31 14:51 | XMS_ITS | Clinical Summary ---
Author Organization [facility] Address [address] [address] Care Team Providers Care Residence Director Name Role Phone Demond Stark MD Primary Care Provider [phone] Source Comments [facility],non-owned Affiliates and Associated Physician Practices is amultiple site organization consisting of ambulatory clinics and hospital sitesin [place], [place], [place] and [place]. This disclosure is being madepursuant to the Care Everywhere program and may not contain all information available regarding this patient. Last updated 18.[facility] Allergies Active Allergy Reactions Criticality Noted Date [...] (one) tablet by mouth once daily Active pyridoxine (Vitamin B-6) 50 MG tablet Take 1 (one) tablet by mouth once daily Active folic acid 400 MCG tablet Take 1 (one) tablet by mouth once daily Active polyethylene glycol 3350 (Miralax) 17 GM/SCOOP powder Take 17 (seventeen) g by mouth once daily Active levothyroxine (Synthroid) 112 MCG tablet 1 (one) tablet by Enteral Tube route once daily for 60 days 30 tablet 1 12/26/2024 02/24/2025 Active levothyroxine (Synthroid) 50 MCG tablet Take 1 (one) tablet by mouth daily before breakfast 12/25/2024 Discontinued (List Clean-Up) Active Problems Problem Noted Date Diagnosed Date 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 Parkinsonism 09/06/2024 Falls 09/06/2024 Atrial fibrillation 09/06/2024 Muscular deconditioning 09/06/2024 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 Encounters Date Type Department Care Team Description 12/22/2024 1:23 PM CDT Anesthesia Event [facility] [address] [place] [address] Nnamdi Miller DO Dobbs, Kristin L, STAFF AIR TACTICAL OFFICER-MOLD HOLDER 12/22/2024 1:00 PM CDT - 12/22/2024 2:30 PM CDT Surgery [facility] [address] [place] [address] Callie Mendoza DO EGD w/Z-poem 12/22/2024 11:53 AM CDT - 12/25/2024 4:30 PM CDT Hospital Encounter [facility]ORT STAY UNIT [address] [place] [address] Callie Mendoza DO Vaidyan, Philip B, MD Surgery General Discharge Disposition: Home or Self Care 12/22/2024 Travel 12/16/2024 Telephone [facility] [address] [place] [address] Alina Hinojosa Procedure (Procedure Confirmation) 12/08/2024 Telephone [facility] - [facility] [address] [facility] [place] [address] Karthik Keyes, commercial real estate agent (EGD w/Zpoem for zenrinkus with Dr. Mendoza for patient seen in her clinic) 12/07/2024 8:13 AM CDT - 12/07/2024 11:59 PM CDT Hospital Encounter [facility] DIAGNOSTIC RAD [address] [place] [address] Callie Mendoza, Discharge Disposition: Home or Self Care 11/26/2024 Telephone [facility] [address] [place] [phone] Ayden Chavis, MANUEL Appointment 11/20/2024 9:00 AM JANITORIAL MAINTENANCE WORKER Office Visit [facility] [address] [place] [phone] Callie Mendoza DO Zenker's diverticulum (Primary Dx); Frailty; Aspiration pneumonia due to gastric secretions, unspecified laterality, unspecified part of lung 11/20/2024 Travel 11/19/2024 Telephone [facility] [address] [place] [phone] Neel Naylor MD Appointment 11/02/2024 Orders Only [facility] - Neurology [address] [place] [phone] Alberto Jeffers MD Falls ; Cerebrovascular accident (CVA), unspecified mechanism; Type 2 diabetes mellitus with other specified complication, unspecified whether fci insulin use 10/25/2024 4:30 PM JANITORIAL MAINTENANCE WORKER - 10/25/2024 11:59 PM JANITORIAL MAINTENANCE WORKER Hospital Encounter [facility] MRI [address] [place] [address] Natalia Vann, Discharge Disposition: Home or Self Care 10/25/2024 4:30 PM JANITORIAL MAINTENANCE WORKER - 10/25/2024 11:59 PM JANITORIAL MAINTENANCE WORKER Hospital Encounter [facility] MRI [address] [place] [address] Natalia Vann, Discharge Disposition: Home or Self Care 10/25/2024 4:30 PM JANITORIAL MAINTENANCE WORKER Hospital Encounter [facility] MRI [address] [place] [address] Natalia Vann, Discharge Disposition: Home or Self Care 10/25/2024 Travel 10/17/2024 5:55 PM JANITORIAL MAINTENANCE WORKER - 10/17/2024 11:59 PM JANITORIAL MAINTENANCE WORKER Hospital Encounter [facility] MRI [address] [place] [address] Natalia Vann, DO Discharge Disposition: Home or Self Care 10/17/2024 Travel 10/09/2024 11:00 AM JANITORIAL MAINTENANCE WORKER Office Visit [facility] - Neurology [address] [place] [address] Alberto Jeffers MD Imbalance (Primary Dx); Back pain, unspecified back location, unspecified back pain laterality, unspecified chronicity; Cervical spine arthritis 10/09/2024 Travel from Last 3 Months Social History Tobacco Use Types Packs/Day Years Used Date Smoking Tobacco: Former Cigarettes Q uit: 09/23/1969 Smokeless Tobacco: Never Tobacco Cessation:Counseling Given: Not Answered Alcohol Use Standard Drinks/Week Comments Yes 0 (1 standard drink = 0.6 oz pur e alcohol) rarely AUDIT-C Answer Date Recorded Q1: How often do you have a drink containing alcohol? Never 12/25/2024 Q2: How many drinks containi ng alcohol do you have on a typical day when you are drinking? Patient does not drink Q3: How often do you have si x or more drinks on one occasion? Never 12/25/2024 Overall Financial Resource Strain (CARDIA) Answe r Date Recorded How hard is it for you to pa y for the very basics like food, housing, medical care, and heating? Not hard at all 12/25/2024 [facility] - Occupational Stress Questionnaire Answer Date Recorded Do you feel stress - tense, restless, nervous, or anxious, or unable to sleep at night because your mind is troubled all the time - these days? Not at all 12/25/2024 Hunger Vital Sign Answer Date Recorded Within the past 12 months, y ou worried that your food would run out before you got the money to buy more. Never true 12/26/19 25 Within the past 12 months, t he food you bought just didn't last and you didn't have money to get more. Never true 12/25/2024 PRAPARE - Transportation Answer Date Re corded In the past 12 months, has l ack of transportation kept you from medical appointments or from getting medications? No 12/2024 In the past 12 months, has l ack of transportation kept you from meetings, work, or from getting things needed for daily living? No 12/25/2024 Housing Stability Vital Sign Answer Maynor e Recorded In the last 12 months, was t here a time when you were not able to pay the mortgage or rent on time? No 12/25/2024 In the past 12 months, how m any times have you moved where you were living? 0 12/25/2024 At any time in the past 12 m [facility], were you homeless or living in a senior care (including now)? No 12/25/2024 Sex and Gender Information Value Date Recorded Sex Assigned at Not on file Gender Identity Not on file Sexual Orientation Not on file Last Filed Vital Signs Vital Sign Reading Time Taken Comments Blood Pressure 157/92 12/25/2024 11:32 AM CDT Pulse 79 12/25/2024 11:32 AM CDT Temperature 36.6 C (97.9 F) 12/25/2024 11:32 AM CDT Respiratory Rate 15 12/25/2024 11:32 AM CDT Oxygen Saturation 94% 12/25/2024 11:32 AM CDT Inhaled Oxygen Concentration - - Weight 87.7 kg (193 lb 4.8 oz) 12/24/2024 5:03 A M CDT Height 182.9 cm (6') 12/22/2024 12:04 PM CDT Body Mass Index 26.22 12/22/2024 12:04 PM CDT Plan of Treatment Upcoming Encounters Date Type Department Care Team (Late st Contact Info) Description 01/01/2025 9:30 AM CDT Office Visit [facility] - Neurology [address] [place] [address] Alberto Jeffers MD [address] [facility] [place] [phone] Health Maintenance Due Date Last Done Comments MEDICARE AWV 12 MONTHS 1940 DTAP/TDAP/TD VACCINES (1 - Tdap) 02/21/1959 PNEUMOCOCCAL VACCINE 50+ (1 of 2 - PCV) 02/21/1959 ZOSTER VACCINE (1 of 2) 02/21/1990 Respiratory Syncytial Virus (RSV) Vaccine Pt: or over 60 yrs (1 - 1-dose 75+ series) 02/21/2015 COVID-19 VACCINE ( - 2023-2 5 season) 2024 DEPRESSION SCREENING 09/23/2024 INFLUENZA VACCINE (Season Ended) 2025 07/24/20 10 HEPATITIS B VACCINE Aged Out No longe r eligible based on patient's age to complete this topic HIB VACCINE Aged Out No longer eligi ble based on patient's age to complete this topic HPV VACCINE Aged Out No longer eligi ble based on patient's age to complete this topic MENINGOCOCCAL (Group B) VACC INE SHARED DECISION-MAKING Aged Out No longer eligibl e based on patient's age to complete this topic MENINGOCOCCAL GROUPS A/C/Y/W VACCINE Aged Out No longer eligible b ased on patient's age to complete this topic Goals Goal Patient Goal Type Associated Problems Recent Progress Patient-Stated? Author Nutrition General Improving( 10:12 AM JANITORIAL MAINTENANCE WORKER) Yohana Gomez, RN Note: Expected end date: Working on plan Nutritional status is maintained or improving. Interventions: Take nutritional supplements as ordered Collaborate with the clinical security operations center analyst Oral care Use soft toothbrushes Keep hydrated Procedures Procedure Name Priority Date/Time Associated Diagnosis Comments RENAL FUNCTION PANEL AM Draw 12/25/2024 12:59 AM CDT Zenker diverticula MAGNESIUM BLOOD Routine 12/25/2024 12:59 AM CDT Zenker diverticula CBC W/O DIFFERENTIAL AM Draw 12/25/2024 12:59 AM CDT Zenker diverticula FL SWALLOWING FUNCTION STUDY Routine 12/24/2024 9:33 AM CDT Zenker diverticula RENAL FUNCTION PANEL AM Draw 12/24/2024 12:51 AM CDT Zenker diverticula MAGNESIUM BLOOD Routine 12/24/2024 12:51 AM CDT Zenker diverticula CBC W/O DIFFERENTIAL AM Draw 12/24/2024 12:51 AM CDT Zenker diverticula FL ESOPHAGRAM Routine 12/23/2024 8:50 AM CDT Zenker diverticula RENAL FUNCTION PANEL AM Draw 12/23/2024 1:28 AM CDT Zenker diverticula MAGNESIUM BLOOD Routine 12/23/2024 1:28 AM CDT Zenker diverticula CBC W/O DIFFERENTIAL AM Draw 12/23/2024 1:28 AM CDT Zenker diverticula RENAL FUNCTION PANEL AM Draw 12/22/2024 6:03 PM CDT Zenker diverticula ENDOTRACHEAL TUBE NOTE Routine 12/22/2024 1:40 PM CDT RI ENDOSCOPIC ULTRASOUND EXAM 12/22/2024 1:19 PM CDT Zenker's diverticulum EGD Routine 12/22/2024 1:15 PM CDT FL ESOPHAGRAM Routine 12/07/2024 9:37 AM CDT Zenker's diverticulum MRI THORACIC SPINE WO CONTRAST Routine 10/25/2024 6:20 PM JANITORIAL MAINTENANCE WORKER Imbalance Back pain, unspecified back location, unspecified back pain laterality, unspecified chronicity Cervical spine arthritis MRI LUMBAR SPINE WO CONTRAST Routine 10/25/2024 6:20 PM JANITORIAL MAINTENANCE WORKER Imbalance Back pain, unspecified back location, unspecified back pain laterality, unspecified chronicity Cervical spine arthritis MRI CERVICAL SPINE WO CONTRAST Routine 10/25/2024 6:20 PM JANITORIAL MAINTENANCE WORKER Imbalance Back pain, unspecified back location, unspecified back pain laterality, unspecified chronicity Cervical spine arthritis MRI BRAIN WWO CONTRAST Routine 10/17/2024 6:43 PM JANITORIAL MAINTENANCE WORKER Imbalance Back pain, unspecified back location, unspecified back pain laterality, unspecified chronicity Cervical spine arthritis from Last 3 Months Results * (ABNORMAL) CBC W/O DIFFERENTIAL (12/25/2024 12:59 AM CDT) Only the most recent of3 resultswithin the time period is included. WBC 7.6 4.0 - 10.7 x10E9/L 12/25/2024 1:22 AM [facility] RBC Count 4.35 4.30 - 5.80 x10E12/L 12/25/2024 1:22 AM [facility] Hemoglobin 13.5 13.3 - 17.5 g/dL 12/25/2024 1:22 AM [facility] Hematocrit 40.0 38.7 - 51.1 % 12/25/2024 1:22 AM [facility] MCV 92.0 80.0 - 98.0 fL 12/25/2024 1:22 AM [facility] MCH 31.0 26.7 - 33.6 pg 12/25/2024 1:22 AM [facility] MCHC 33.8 31.7 - 36.3 g/dL 12/25/2024 1:22 AM [facility] RDW-CV 12.8 11.3 - 14.8 % 12/25/2024 1:22 AM [facility] Platelet Count 163 150 - 420 x10E9/L 12/25/2024 1:22 AM [facility] MPV 11.7(H) 7.8 - 11.4 fL 12/25/2024 1:22 AM [facility] Blood BLOOD SPECIMEN / Unknown Lab Venipuncture / Unknown 12/25/2024 12:59 AM CDT 12/25/2024 1:12 AM CDT Yasir Boyce MD LAB - HEMATOLOGY ORD ERABLES [facility] [address] [place] [address], [facility] [phone] * (ABNORMAL) RENAL FUNCTION PANEL (12/25/2024 12:59 AM CDT) Only the most recent of4 resultswithin the time period is included. BUN 21 7 - 26 mg/dL 12/25/2024 1:43 AM [facility] Creatinine 1.01 0.71 - 1.16 mg/dL 12/25/2024 1:43 AM [facility] Sodium 140 136 - 145 mmol/L 12/25/2024 1:43 AM [facility] Potassium 4.0 3.5 - 4.5 mmol/L 12/25/2024 1:43 AM [facility] Chloride 105 98 - 107 mmol/L 12/25/2024 1:43 AM [facility] CO2 27 22 - 29 mmol/L 12/25/2024 1:43 AM [facility] Glucose 109(H) 70 - 99 mg/dL 12/25/2024 1:43 AM [facility] Albumin 3.7 3.4 - 5.0 g/dL 12/25/2024 1:43 AM [facility] Calcium 9.8 8.4 - 10.2 mg/dL 12/25/2024 1:43 AM [facility] Phosphorus 3.2 2.8 - 5.1 mg/dL 12/25/2024 1:43 AM [facility] Anion Gap 8 6 - 16 12/25/2024 1:43 AM [facility] BUN/Creatinine Ratio 21 7 - 23 12/25/2024 1:43 AM [facility] Osmolality Calculated 294 275 - 295 mOsm/kg 12/25/2024 1:43 AM [facility] eGFR by CKD-EPI 73(L) >=90 mL/min/1.7 3 m2 12/25/2024 1:43 AM [facility] Blood BLOOD SPECIMEN / Unknown Lab Venipuncture / Unknown 12/25/2024 12:59 AM CDT 12/25/2024 1:07 AM T Yasir Boyce MD LAB - CHEMISTRY [facility] Organization Address City/State/ZIP Co de Phone Number [facility] [address] [place] [address], [facility] [phone] * MAGNESIUM BLOOD (12/25/2024 12:59 AM CDT) Only the most recent of3 resultswithin the time period is included. Magnesium 2.0 1.6 - 2.6 mg/dL 12/25/2024 1:43 AM CDT [facility] Blood BLOOD SPECIMEN / Unknown Lab Venipuncture / Unknown 12/25/2024 12:59 AM CDT 12/25/2024 1:07 AM CDT Yasir Boyce MD LAB - CHEMISTRY [place] [facility] [address] [place] [address], [facility] [phone] * FL SWALLOWING FUNCTION STUDY (12/24/2024 9:33 AM CDT) Anatomical Region Laterality Modality Chest Digital Radiogra phy 12/26/2024 12:4 7 AM CDT Impressions 12/26/2024 12:48 AM CDT IMPRESSION: Modified barium swallow fluoroscopy as described. Please see detailed report from speech pathology staff. > Interpreting Provider: Deepak Hernandez MD on 12/26/2024 12:48 AM Narrative 12/26/2024 12:48 AM CDT PROCEDURE: FL SWALLOWING FUNCTION STUDY DATE/TIME OF EXAM: 12/24/2024 9:34 AM CLINICAL INFORMATION: None relevant/not provided if blank. Indication: K22.5: Zenker diverticula Additional History: COMPARISON: None. TECHNIQUE: Modified barium swallow fluoroscopy performed in conjunction with speech pathology staff. The speech pathologist administered varying thickness barium liquids and solids under direct Cine fluoroscopy. FINDINGS: Fluoroscopy provided for the purpose of speech pathology swallowing study. Please see speech pathology report for details. FLUOROSCOPY DOSE: 6 mGy Reference air kerma (ka,r). Procedure Note Deepak Hernandez MD - 12/26/2024 PROCEDURE: FL SWALLOWING FUNCTION STUDY DATE/TIME OF EXAM: 12/24/2024 9:34 AM CLINICAL INFORMATION: None relevant/not provided if blank. Indication: K22.5: Zenker diverticula Additional History: COMPARISON: None. TECHNIQUE: Modified barium swallow fluoroscopy performed in conjunction with speech pathology staff. The speech pathologist administered varying thickness barium liquids and solids under direct Cine fluoroscopy. FINDINGS: Fluoroscopy provided for the purpose of speech pathology swallowingstudy. Please see speech pathology report for details. FLUOROSCOPY DOSE: 6 mGy Reference air kerma (ka,r). IMPRESSION: Modified barium swallow fluoroscopy as described. Please see detailed report from speech pathology staff. > Interpreting Provider: Deepak Hernandez MD on 12/26/2024 12:48 AM Yasir Boyce MD FLUOROSCOPY ORDERABL ES * FL Esophagram (12/23/2024 8:50 AM CDT) Only the most recent of2 resultswithin the time period is included. Anatomical Region Laterality Modality Chest Digital Radiogra phy 12/23/2024 9:02 AM CDT Narrative 12/23/2024 12:03 PM CDT PROCEDURE: FL ESOPHAGRAM DATE/TIME OF EXAM: 12/23/2024 8:54 AM CLINICAL INFORMATION: None relevant/not entirely provided if blank. Indication: K22.5: Zenker diverticula Additional History: 12/22/2024: POEM procedure COMPARISON: Esophagram 12/07/2024. TECHNIQUE: Water-soluble contrast (Isovue-300). FLUOROSCOPY DOSE: 55.9 mGy Reference air kerma (ka,r). FINDINGS/IMPRESSION: The patient was unable to follow commands. A syringe was used to place contrast into his mouth. He had difficulty initiating a swallow. Large aspiration occurred to the periphery of the right lower lobe. The size of the diverticulum appears significantly decreased. The exam was terminated due to the large aspiration and patient's inability to follow commands. > Interpreting Provider: Isabel Garcia MD on 12/23/2024 12:03 PM Procedure Note Isabel Garcia MD - 12/23/2024 PROCEDURE: FL ESOPHAGRAM DATE/TIME OF EXAM: 12/23/2024 8:54 AM CLINICAL INFORMATION: None relevant/not entirely provided if blank. Indication: K22.5: Zenker diverticula Additional History: 12/22/2024: POEM procedure COMPARISON: Esophagram 12/07/2024. TECHNIQUE: Water-soluble contrast (Isovue-300). FLUOROSCOPY DOSE: 55.9 mGy Reference air kerma (ka,r). FINDINGS/IMPRESSION: The patient was unable to follow commands. A syringe was used to place contrast into his mouth. He had difficulty initiating a swallow. Large aspiration occurred to the periphery of the right lower lobe. The sizeof the diverticulum appears significantly decreased. The exam wasterminated due to the large aspiration and patient's inability to follow commands. > Interpreting Provider: Isabel Garcia MD on 12/23/2024 12:03 PM Yasir Boyce MD FLUOROSCOPY ORDERABL ES * ETT LINE PERFORMABLE (12/22/2024 1:40 PM CDT) Narrative Rachelle John APRN-CRNA - 12/22/2024 1:40 PM CDT Rachelle John APRN-CRNA 12/22/2024 1:41 PM Endotracheal Tube Placement: Patient Location: OR. Procedure: intubation (58850) Procedure Section: Sedation: under general anesthesia. Indications for Airway Management: anesthesia Procedure pretreatments used? No Induction: standard IV Patient Position: sniffing Mask Ventilation: easy. Blade Type: Zara Blade Size: 3 Laryngoscopy View: grade 3 (epiglottis) Intubation Adjuncts: stylet Tube: endotracheal tube Placement: oral Tube type: cuff - inflated Tube Size (MM): 7 Depth of Insertion (CM): 22 Measured From: teeth Cuff volume (mL): 5 Cuff Inflated With: air Number of Attempts: 1. Placement Verified By: direct visualization, bilateral breath sounds and CO2 monitor Tube secured with: adhesive tape. Dentition unchanged? Yes Difficult Airway? No. Staff Section Anesthesia Provider: Rachelle John APRN-CRNA Provider #1: Nnamdi Miller DO, Performed the procedure. Nnamdi Miller DO GENERAL ANESTHESI A ORDERABLES * EGD (12/22/2024 1:15 PM CDT) Report Endoscopy POC Endoscopy Department Report _ Patient Name: Omar Ryan Procedure Date: 12/22/2024 1:15 PM Date of : 1940 Classification: Outpatient Gender: Male Ethnicity: Not or Race: White _ Providers: DO Anshul Rondon MD: Procedure: Upper GI endoscopy Indications: For therapy of Zenker's diverticulum Medications: General Anesthesia, Ancef 2000 mg IV Description of Procedure: Pre-Anesthesia Assessment: - Prior to the procedure, a History and Physical was performed, and patient medications and allergies were reviewed. The patient's tolerance of previous anesthesia was also reviewed. The risks and benefits of the procedure and the sedation options and risks were discussed with the patient. All questions were answered, and informed consent was obtained. Prior Anticoagulants: The patient has taken Xarelto (rivaroxaban), last dose was 2 days prior to procedure. ASA Grade Assessment: III - A patient with severe systemic disease. After reviewing the risks and benefits, the patient was deemed in satisfactory condition to undergo the procedure. After obtaining informed consent, the endoscope was passed under direct vision. Throughout the procedure, the patient's blood pressure, pulse, and oxygen saturations were monitored continuously. The Endoscope was introduced through the mouth, and advanced to the second part of duodenum. The upper GI endoscopy was accomplished without difficulty. The patient tolerated the procedure well. Findings: A moderate-sized area of extrinsic compression was found at the cricopharyngeus. A diverticulum with a large opening was found in the proximal esophagus 17cm from the incisors measuring 3cm deep. The septum between the diverticulum and the esophagus was identified and a small submucosal injection of Eleview was performed on top of the septum. A standard size SB knife was used to make a horizontal mucosal incision targeting the center of the septum using cutting current. A standard injection needle was used to inject Eleview to expand the submucosa on the diverticular and the esophageal sides from the septum. The SB knife was used to perform the myotomy and dissect the septum down to the base, at least 1cm distal to the bottom of the diverticulum until no further muscle fibers remained. To close the mucosal defect, five 11mm hemostatic clips (sure clips) were successfully placed (MR conditional). Clip contract forester: Woofound. There was no bleeding at the end of the procedure. The gastroscope was passed into the esophagus with ease showing reduced extrinsic compression at the upper esophagus. The Z-line was irregular. The examined esophagus was moderately tortuous. A 2 cm hiatal hernia was present. Normal mucosa was found in the stomach. The PEG was found in the gastric body. The examined duodenum was normal. Estimated Blood Loss: Estimated blood loss: none. Complications: No immediate complications. Impression: - A zenker's diverticulum measuring 3cm in depth was successfully treated using the Z-POEM technique. Mucosal defect closed with 5 hemoclips. - Other findings on endoscopy include an irregular z-line irregular, moderately tortuous esophagus and small hiatal hernia. - The stomach and duodenum were otherwise normal. Recommendation: - Admit the patient to hospital [facility] for observation. - NPO today, then advance as tolerated to clear liquid diet AFTER esophagram confirms no contrast extravasation. - Perform an esophagram tomorrow morning with Gastrograffin. - Patient will be on 3 days of clear liquid diet, 3 days of full litquid diet and then 3 weeks of a soft diet. - Perform a PA and lateral chest x-ray in 2 weeks. - Return to my office in 2 weeks after chest xray. - Resume xarelto in 24 hours. Attending Participation: I personally performed the entire procedure. Procedure Code(s): --- Professional --- 82498, 22, Esophagogastroduo denoscopy, flexible, transoral; diagnostic, including collection of specimen(s) by brushing or washing, when performed (separate procedure) 37145, Unlisted procedure, esophagus Diagnosis Code(s): --- Professional --- K22.2, Esophageal obstruction Q39.6, Congenital diverticulum of esophagus K22.89, Other specified disease of esophagus Q39.9, Congenital malformation of esophagus, unspecified K44.9, Diaphragmatic hernia without obstruction or gangrene K22.5, Diverticulum of esophagus, acquired CPT copyright 2021 [employer]. All rights reserved. The codes documented in this report are preliminary and upon supervisor facepiece line review may be revised to meet current compliance requirements. Callie Mendoza DO 12/22/2024 7:31:42 PM This report has been signed electronically. Note Initiated On: 12/22/2024 1:15 PM Number of Addenda: 0 [facility] [address] [place] [address] [facility] 12/22/2024 1:15 PM CDT Callie Mendoza DO GI PROCEDURE ORDERAB LES [facility]ATION * MRI Thoracic Spine Wo Contrast (10/25/2024 6:20 PM JANITORIAL MAINTENANCE WORKER) Anatomical Region Laterality Modality Chest Magnetic Resonan ce 11/01/2024 10:3 8 AM JANITORIAL MAINTENANCE WORKER Impressions 11/01/2024 11:01 AM JANITORIAL MAINTENANCE WORKER IMPRESSION: 1. No acute findings in the thoracic spine. No cord abnormality or cord compression. 2. Mild multilevel degenerative disc disease and mild to moderate multilevel facet as a synovitis in the lumbar spine. No central canal stenosis. > Interpreting Provider: Mikaela Cunningham MD on 11/01/2024 11:01 AM Narrative 11/01/2024 11:01 AM JANITORIAL MAINTENANCE WORKER PROCEDURE: MRI THORACIC SPINE WO CONTRAST, DATE/TIME OF EXAM: 10/25/2024 6:20 PM, LOCATION [facility] INDICATION: R26.89: Imbalance M54.9: Back pain, [...] DATE/TIME OF EXAM: 10/25/2024 6:20 PM, LOCATION [facility] INDICATION: R26.89: Imbalance M54.9: Back pain, [...] Lumbar Spine Wo Contrast (10/25/2024 6:20 PM JANITORIAL MAINTENANCE WORKER) Anatomical Region Laterality Modality Spine Magnetic Resonan ce 11/01/2024 11:0 1 AM JANITORIAL MAINTENANCE WORKER Impressions 11/01/2024 11:09 AM JANITORIAL MAINTENANCE WORKER IMPRESSION: 1. 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 No significant central canal or neuroforamina stenosis. > Interpreting Provider: Mikaela Cunningham MD on 11/01/2024 11:09 AM Narrative 11/01/2024 11:09 AM JANITORIAL MAINTENANCE WORKER PROCEDURE: MRI LUMBAR SPINE WO CONTRAST, DATE/TIME OF EXAM: 10/25/2024 6:20 PM, LOCATION [facility] INDICATION: R26.89: Imbalance M54.9: Back pain, [...] CONTRAST, DATE/TIME OF EXAM: :20 PM, LOCATION [facility] INDICATION: R26.89: Imbalance M54.9: Back pain, [...] Cervical Spine Wo Contrast (10/25/2024 6:20 PM JANITORIAL MAINTENANCE WORKER) Anatomical Region Laterality Modality Pelvis Magnetic Resonan ce 11/01/2024 10:3 1 AM JANITORIAL MAINTENANCE WORKER Impressions 11/01/2024 10:38 AM JANITORIAL MAINTENANCE WORKER IMPRESSION: 1. 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 > Interpreting Provider: Mikaela Cunningham MD on 11/01/2024 10:38 AM Narrative 11/01/2024 10:38 AM JANITORIAL MAINTENANCE WORKER PROCEDURE: MRI CERVICAL SPINE WO CONTRAST, DATE/TIME OF EXAM: 10/25/2024 6:20 PM, LOCATION [facility] INDICATION: R26.89: Imbalance M54.9: Back pain, [...] DATE/TIME OF EXAM: 10/25/2024 6:20 PM, LOCATION [facility] INDICATION: R26.89: Imbalance M54.9: Back pain, [...] MRI Brain Wwo Contrast (10/17/2024 6:43 PM JANITORIAL MAINTENANCE WORKER) Anatomical Region Laterality Modality Head Magnetic Resonan ce 10/22/2024 4:16 PM JANITORIAL MAINTENANCE WORKER Impressions 10/22/2024 4:28 PM JANITORIAL MAINTENANCE WORKER IMPRESSION: 1. No acute intracranial process. Specifically, [...] 10/22/2024 4:28 PM Narrative 10/22/2024 4:28 PM JANITORIAL MAINTENANCE WORKER PROCEDURE: MRI BRAIN WWO CONTRAST, DATE/TIME OF EXAM: 10/17/2024 6:45 PM, LOCATION [facility] INDICATION: R26.89: Imbalance M54.9: Back pain, [...] CONTRAST, DATE/TIME OF EXAM: 10/17/2024 6:45PM, LOCATION [facility] INDICATION: R26.89: Imbalance M54.9: Back pain, [...] DO MR ORDERABLES from Last 3 Months Advance Directives * Full Code (Latest Code Status on File) Date Activated Date Inactivated Comments 12/22/2024 4:39 PM 12/25/2024 7:01 PM Care Teams Residence Director Relationship Specialty Start Date End Date Demond Stark MD [address] [place] [address] PCP - General 10/03/15
--- OUTSIDE RECORDS SUMMARY | 2024-12-31 14:51 | XMS_ITS | Encounter Summary ---
Author Organization [facility] Address [address] [place] [address] Care Team Providers Care Volcanologist Name Role Phone Unavailable Primary Care Provider Unavailabl e Encounter Details Date Type Department Care Team (Late st Contact Info) Description 10/10/[address] [facility] Laboratory Services [address] [place] [address] [place] [address] [place] [address] Social History Tobacco Use Types Packs/Day Years Used Date Smoking Tobacco: Never Assessed Sex and Gender Information Value Date Recorded Sex Assigned at Not on file Legal Sex Male 9:18 AM GRAPHIC ENGINEER Gender Identity Not on file Sexual Orientation Not on file documented as of this encounter Plan of Treatment Not on file documented as of this encounter Procedures Procedure Name Priority Date/Time Associated Diagnosis Comments CARBAPENEM RESISTANT ORGANISM Routine 10/09/2023 9:30 PM GRAPHIC ENGINEER SPUTUM CULTURE WITH GRAM STAIN Routine 10/09/2023 9:30 PM GRAPHIC ENGINEER documented in this encounter Results * (ABNORMAL) CARBAPENEM RESISTANT ORGANISM (10/09/2023 9:30 PM GRAPHIC ENGINEER) ORGANISM TESTED Klebsiella pneumoniae 10/12/2023 4:25 PM GRAPHIC ENGINEER [facility] Carbapenem Resistance Gene Detected(A) Not Detected 10/12/2023 4:25 PM GRAPHIC ENGINEER [facility] KPC (carbapenem-re sistance gene) by PCR DETECTED(A) Not Detected 10/12/2023 4:25 PM GRAPHIC ENGINEER [facility] Sputum Collection / Unknown 10/09/2023 9:30 PM GRAPHIC ENGINEER 10/10/2023 9:54 AM GRAPHIC ENGINEER [facility] - 10/12/2023 4:25 PM GRAPHIC ENGINEER This isolate is a carbapenem-resistant Organism (OPEN HEARTH FURNACE OPERATOR HELPER) AND is a carbapenamase-line producer. If inpatient, place patient in Enhanced Contact Isolation. The [employer] Xpert Carba-R PCR assay detects the presence of KPC, NDM, VIM, OXA- 48, and IMP gene sequences that induce carbapenemase production in gram negative bacteria. This test was performed using an FDA approved screening methodology. Erik Chairez MD MICROBIOLOGY - GENERAL ORDERABLE S Final Result [facility]# [id number] [address] [place] [address] * (ABNORMAL) SPUTUM CULTURE WITH GRAM STAIN (10/09/2023 9:30 PM GRAPHIC ENGINEER) CULTURE KLEBSIELLA PNEUMONIAE(A) LUCINA MCG/ML 10/17/2023 10:47 AM GRAPHIC ENGINEER [facility] Comment: This isolate is a Carbapenem-Resistant Organism AND is a carbapenemase line producer (OPEN HEARTH FURNACE OPERATOR HELPER-CP). If inpatient, place patient in Enhanced Contact Isolation. Multiple drug resistant organism (MDRO). CULTURE Absent Normal Shahrzad LUCINA MCG/ML 10/17/2023 10:47 AM [facility] GRAM STAIN Non diagnostic pattern LUCINA MCG/ML 10/17/2023 10:47 AM [facility] GRAM STAIN No WBC observed 10/17/2023 10:47 AM [facility] Sputum Collection / Unknown 10/09/2023 9:30 PM GRAPHIC ENGINEER 10/10/2023 9:54 AM GRAPHIC ENGINEER [facility] - 10/17/2023 10:47 AM GRAPHIC ENGINEER Results called to Kelly Suarez RN, Rosalie [...] Edited Result - Final Performing Organization Address City/State/[facility] Co de Phone Number [facility]# [id number] [address] [place] [address] documented in this encounter Visit Diagnoses Not on filedocumented in this encounter Additional Health Concerns Infection Onset Date Last Indicated Resolved Time CRE-CP Comment:10/09/23 Klebsiella pneumoniae, Sputum 10/09/2023 10/09/2023 05/28/2024 2:37 PM C DT 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
--- OUTSIDE RECORDS SUMMARY | 2024-12-31 14:52 | XMS_ITS | Encounter Summary ---
Author Organization [facility] Address [address] [place] [address] Care Team Providers Care Syrup Machine Laborer Name Role Phone Unavailable Primary Care Provider Unavailabl e Encounter Details Date Type Department Care Team (Late st Contact Info) Description 10/14/2023 Lab Requisition [facility] Laboratory Services [address] [place] [address] [place] [address] [place] [address] Social History Tobacco Use Types Packs/Day Years Used Date Smoking Tobacco: Never Assessed Sex and Gender Information Value Date Recorded Sex Assigned at Not on file Legal Sex Male 9:18 AM MODELER Gender Identity Not on file Sexual Orientation Not on file documented as of this encounter Plan of Treatment Not on file documented as of this encounter Procedures Procedure Name Priority Date/Time Associated Diagnosis Comments CBC WITH DIFFERENTIAL Routine 10/14/2023 2:35 AM MODELER TRIGLYCERIDE Routine 10/14/2023 2:35 AM MODELER PHOSPHORUS Routine 10/14/2023 2:35 AM MODELER MAGNESIUM LEVEL Routine 10/14/2023 2:35 AM MODELER COMPREHENSIVE METABOLIC PANEL Routine 10/14/2023 2:35 AM MODELER documented in this encounter Results * (ABNORMAL) TRIGLYCERIDE (10/14/2023 2:35 AM MODELER) TRIGLYCERIDE 161(H) <150 mg/dL 10/14/2023 8:26 AM MODELER [facility] SERVICES [facility] Blood Collection / Unknown 10/14/2023 2:35 AM MODELER 10/14/2023 7:22 AM MODELER Narrative [facility] - 10/14/2023 8:26 AM MODELER TRIGLYCERIDES mg/dL Normal < 150 Borderline High 150 - 199 High 200 - 499 Very High >= 500 Based on AHA/NCEP Guidelines. us Erik Chairez MD CHEMISTRY ORDERABLES Final Resul t Performing Organization Address City/[facility]/ZIP Co de Phone Number [facility] CLIA# [id number] [address] [place] [address] * PHOSPHORUS (10/14/2023 2:35 AM MODELER) PHOSPHORUS 3.4 2.5 - 4.5 mg/dL 10/14/2023 8:26 AM MODELER [facility] Blood Collection / Unknown 10/14/2023 2:35 AM MODELER 10/14/2023 7:22 AM MODELER us Erik Chairez MD CHEMISTRY ORDERABLES Final Resul t Performing Organization Address City/[facility] Co de Phone Number [facility]# [id number] [address] [place] [address] * MAGNESIUM LEVEL (10/14/2023 2:35 AM MODELER) MAGNESIUM 2.5 1.6 - 2.6 mg/dL 10/14/2023 8:26 AM MODELER [facility] Blood Collection / Unknown 10/14/2023 2:35 AM MODELER 10/14/2023 7:22 AM MODELER us Erik Chairez MD CHEMISTRY ORDERABLES Final Resul t Performing Organization Address City/[facility]/ZIP Co de Phone Number [facility]# [id number] [address] [place] [address] * (ABNORMAL) CBC WITH DIFFERENTIAL (10/14/2023 2:35 AM MODELER) [facility] WBC 9.2 4.5 - 10.5 K/uL 10/14/2023 8:02 AM [facility] RBC 3.58(L) 4.50 - 5.40 M/uL 10/14/2023 8:02 AM [facility] HEMOGLOBIN 11.0(L) 13.6 - 16.5 g/dL 10/14/2023 8:02 AM [facility] HEMATOCRIT 33.5(L) 40.0 - 48.0 % 10/14/2023 8:02 AM [facility] MCV 93.6 82.0 - 99.0 fL 10/14/2023 8:02 AM [facility] MCH 30.6 27.8 - 34.5 pg 10/14/2023 8:02 AM [facility] MCHC 32.7 32.5 - 35.5 g/dL 10/14/2023 8:02 AM [facility] RDW 17.7(H) 11.5 - 14.5 % 10/14/2023 8:02 AM [facility] PLATELETS 214 160 - 420 K/uL 10/14/2023 8:02 AM [facility] MPV 9.2 8.7 - 12.7 fL 10/14/2023 8:02 AM [facility] NEUTROPHILS 58 % 10/14/2023 8:02 AM [facility] LYMPHOCYTES 24 % 10/14/2023 8:02 AM [facility] MONOCYTES 8 % 10/14/2023 8:02 AM MODELER [facility] EOSINOPHILS 9 % 10/14/2023 8:02 AM [facility] BASOPHILS 0 % 10/14/2023 8:02 AM [facility] NEUTROPHIL ABSOLUTE 5.40 1.90 - 7.00 K/uL 10/14/2023 8:02 AM [facility] LYMPHOCYTE ABSOLUTE 2.20 0.70 - 4.50 K/uL 10/14/2023 8:02 AM [facility] MONOCYTE ABSOLUTE 0.70 0.10 - 1.30 K/uL 10/14/2023 8:02 AM [facility] EOSINOPHIL ABSOLUTE 0.90(H) 0.00 - 0.70 K/uL 10/14/2023 8:02 AM [facility] BASOPHILS ABSOLUTE 0.00 0.00 - 0.20 K/uL 10/14/2023 8:02 AM [facility] Blood Collection / Unknown 10/14/2023 2:35 AM MODELER 10/14/2023 7:22 AM MODELER Erik Chairez MD HEMATOLOGY ORDERABLES Final Resu lt [facility] CLIA# [id number] [address] [place] [address] * (ABNORMAL) COMPREHENSIVE METABOLIC PANEL (10/14/2023 2:35 AM MODELER) SODIUM 135(L) 136 - 145 mmol/L 10/14/2023 8:26 AM [facility] POTASSIUM 4.0 3.4 - 5.1 mmol/L 10/14/2023 8:26 AM [facility] CHLORIDE 97(L) 98 - 107 mmol/L 10/14/2023 8:26 AM [facility] CO2 24 22 - 29 mmol/L 10/14/2023 8:26 AM [facility] CALCIUM 9.5 8.6 - 10.4 mg/dL 10/14/2023 8:26 AM [facility] BUN 36(H) 6 - 20 mg/dL 10/14/2023 8:26 AM [facility] CREATININE 1.18(H) 0.67 - 1.17 mg/dL 10/14/2023 8:26 AM [facility] Comment:The GFR result is no t clinically significant on patients <18 or >70 years of age. GLUCOSE 84 74 - 99 mg/dL 10/14/2023 8:26 AM [facility] TOTAL PROTEIN 7.4 6.3 - 8.7 g/dL 10/14/2023 8:26 AM [facility] ALBUMIN 3.6 3.5 - 5.2 g/dL 10/14/2023 8:26 AM [facility] BILIRUBIN TOTAL 0.6 0.2 - 1.1 mg/dL 10/14/2023 8:26 AM [facility] ALKALINE PHOSPHATASE 99 40 - 150 U/L 10/14/2023 8:26 AM [facility] AST 22 0 - 41 U/L 10/14/2023 8:26 AM [facility] ALT 16 0 - 41 U/L 10/14/2023 8:26 AM [facility] GFR >60 mL/min/1.7 3 sq meter 10/14/2023 8:26 AM [facility] Comment:eGFR calculated with 2020 CKD-EPI equation. Vegetarian diet, extremely high or low muscle mass, and may affect results. Cystatin C with Glomerular Filtration Rate is a suitable alternative for these patients. 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
--- OUTSIDE RECORDS SUMMARY | 2024-12-31 14:52 | XMS_ITS | Encounter Summary ---
Author Organization [facility] Address [address] [place] [address] Care Team Providers Care Lift Truck Mechanic Name Role Phone Unavailable Primary Care Provider Unavailabl e Encounter Details Date Type Department Care Team (Late st Contact Info) Description 11/04/2023 Lab Requisition [facility] Laboratory Services [address] [place] [address] [place] [address] [place] [address] Social History Tobacco Use Types Packs/Day Years Used Date Smoking Tobacco: Never Assessed Sex and Gender Information Value Date Recorded Sex Assigned at Not on file Legal Sex Male 9:18 AM PLAY THERAPIST Gender Identity Not on file Sexual Orientation Not on file documented as of this encounter Plan of Treatment Not on file documented as of this encounter Procedures Procedure Name Priority Date/Time Associated Diagnosis Comments CBC WITH DIFFERENTIAL Routine 11/04/2023 3:45 AM PLAY THERAPIST BASIC METABOLIC PANEL Routine 11/04/2023 3:45 AM PLAY THERAPIST documented in this encounter Results * (ABNORMAL) CBC WITH DIFFERENTIAL (11/04/2023 3:45 AM PLAY THERAPIST) WBC 12.2(H) 4.5 - 10.5 K/uL 11/04/2023 8:52 AM PLAY THERAPIST [facility] SERVICES - [facility] RBC 4.11(L) 4.50 - 5.40 M/uL 11/04/2023 8:52 AM PLAY THERAPIST [facility] HEMOGLOBIN 11.7(L) 13.6 - 16.5 g/dL 11/04/2023 8:52 AM PLAY THERAPIST [facility] HEMATOCRIT 37.9(L) 40.0 - 48.0 % 11/04/2023 8:52 AM PLAY THERAPIST [facility]OR[facility] SERVICES [facility] MCV 92.2 82.0 - 99.0 fL 11/04/2023 8:52 AM PLAY THERAPIST [facility] MCH 28.5 27.8 - 34.5 pg 11/04/2023 8:52 AM PLAY THERAPIST [facility] SERVICES [facility] MCHC 30.9(L) 32.5 - 35.5 g/dL 11/04/2023 8:52 AM PLAY THERAPIST [facility] SERVICES [facility] RDW 17.0(H) 11.5 - 14.5 % 11/04/2023 8:52 AM PLAY THERAPIST [facility] SERVICES [facility] PLATELETS 272 160 - 420 K/uL 11/04/2023 8:52 AM PLAY THERAPIST [facility] SERVICES [facility] MPV 10.0 8.7 - 12.7 fL 11/04/2023 8:52 AM PLAY THERAPIST [facility] SERVICES [facility] NEUTROPHILS 45 % 11/04/2023 8:52 AM PLAY THERAPIST [facility] SERVICES [facility] LYMPHOCYTES 38 % 11/04/2023 8:52 AM PLAY THERAPIST [facility] SERVICES [facility] MONOCYTES 7 % 11/04/2023 8:52 AM PLAY THERAPIST [facility] SERVICES [facility] EOSINOPHILS 11 % 11/04/2023 8:52 AM PLAY THERAPIST [facility] SERVICES [facility] BASOPHILS 1 % 11/04/2023 8:52 AM PLAY THERAPIST [facility] NEUTROPHIL ABSOLUTE 5.50 1.90 - 7.00 K/uL 11/04/2023 8:52 AM PLAY THERAPIST [facility] SERVICES [facility] LYMPHOCYTE ABSOLUTE 4.60(H) 0.70 - 4.50 K/uL 11/04/2023 8:52 AM PLAY THERAPIST [facility] SERVICES [facility] MONOCYTE ABSOLUTE 0.80 0.10 - 1.30 K/uL 11/04/2023 8:52 AM PLAY THERAPIST [facility] SERVICES [facility] EOSINOPHIL ABSOLUTE 1.30(H) 0.00 - 0.70 K/uL 11/04/2023 8:52 AM PLAY THERAPIST [facility]OR[facility] SERVICES [facility] BASOPHILS ABSOLUTE 0.10 0.00 - 0.20 K/uL 11/04/2023 8:52 AM [facility] [email or web address] [facility] Blood 11/04/2023 3:45 AM PLAY THERAPIST 11/04/2023 8:24 AM PLAY THERAPIST Erik Chairez MD HEMATOLOGY ORDERABLES Final Resu lt [facility] CLIA# [id number] [address] [place] [address] * (ABNORMAL) BASIC METABOLIC PANEL (11/04/2023 3:45 AM PLAY THERAPIST) SODIUM 144 136 - 145 mmol/L 11/04/2023 9:49 AM [facility] POTASSIUM 5.3(H) 3.4 - 5.1 mmol/L 11/04/2023 9:49 AM [facility] CHLORIDE 103 98 - 107 mmol/L 11/04/2023 9:49 AM [facility] CO2 26 22 - 29 mmol/L 11/04/2023 9:49 AM [facility] CALCIUM 10.7(H) 8.6 - 10.4 mg/dL 11/04/2023 9:49 AM [facility] BUN 38(H) 6 - 20 mg/dL 11/04/2023 9:49 AM [facility] CREATININE 0.95 0.67 - 1.17 mg/dL 11/04/2023 9:49 AM [facility] Comment:The GFR result is no t clinically significant on patients <18 or >70 years of age. GLUCOSE 114(H) 74 - 99 mg/dL 11/04/2023 9:49 AM [facility] GFR >60 mL/min/1.7 3 sq meter 11/04/2023 9:49 AM [facility] Comment:eGFR calculated with 2020 CKD-EPI equation. Vegetarian diet, extremely high or low muscle mass, and may affect results. Cystatin C with Glomerular Filtration Rate is a suitable alternative for these patients. ANION GAP 15 8 - 16 mmol/L 11/04/2023 9:49 AM PLAY THERAPIST [facility] Blood 11/04/2023 3:45 AM PLAY THERAPIST 11/04/2023 8:24 AM PLAY THERAPIST Erik Chairez MD CHEMISTRY ORDERABLES Final Resul t [facility] CLIA# [id number] [address] [place] [address] documented in this encounter Visit Diagnoses Not on filedocumented in this encounter Additional Health Concerns Infection Onset Date Last Indicated Resolved Time CRE-CP Comment:10/09/23 Klebsiella pneumoniae, Sputum 10/09/2023 10/09/2023 05/28/2024 2:37 PM C DT 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
--- OUTSIDE RECORDS SUMMARY | 2024-12-31 14:52 | XMS_ITS | Encounter Summary ---
Author Organization [email or web address] [facility] Address [address] [place] [address] Care Team Providers Care Engineering Supervisor Name Role Phone Unavailable Primary Care Provider Unavailabl e Encounter Details Date Type Department Care Team (Late st Contact Info) Description 10/11/2023 Lab Requisition [facility] Laboratory Services [id number] [place] [address] [place] [address] [place] [address] Social History Tobacco Use Types Packs/Day Years Used Date Smoking Tobacco: Never Assessed Sex and Gender Information Value Date Recorded Sex Assigned at Not on file Legal Sex Male 9:18 AM MORTGAGE LOAN SPECIALIST Gender Identity Not on file Sexual Orientation Not on file documented as of this encounter Plan of Treatment Not on file documented as of this encounter Procedures Procedure Name Priority Date/Time Associated Diagnosis Comments CBC WITH DIFFERENTIAL Routine 10/11/2023 3:30 AM MORTGAGE LOAN SPECIALIST TRIGLYCERIDE Routine 10/11/2023 3:30 AM MORTGAGE LOAN SPECIALIST MAGNESIUM LEVEL Routine 10/11/2023 3:30 AM MORTGAGE LOAN SPECIALIST RENAL FUNCTION PANEL Routine 10/11/2023 3:30 AM MORTGAGE LOAN SPECIALIST documented in this encounter Results * (ABNORMAL) TRIGLYCERIDE (10/11/2023 3:30 AM MORTGAGE LOAN SPECIALIST) TRIGLYCERIDE 192(H) <150 mg/dL 10/11/2023 6:28 AM MORTGAGE LOAN SPECIALIST [facility]ORATORY SERVICES [facility] Blood 10/11/2023 3:30 AM MORTGAGE LOAN SPECIALIST 10/11/2023 5:43 AM MORTGAGE LOAN SPECIALIST Narrative [facility] - 10/11/2023 6:28 AM MORTGAGE LOAN SPECIALIST TRIGLYCERIDES mg/dL Normal < 150 Borderline High 150 - 199 High 200 - 499 Very High >= 500 Based on AHA/NCEP Guidelines. Erik Chairez MD CHEMISTRY ORDERABLES Final Resul t Performing Organization Address City/[facility]/ZIP Co de Phone Number [facility] CLIA# [id number] [place] [address] * MAGNESIUM LEVEL (10/11/2023 3:30 AM MORTGAGE LOAN SPECIALIST) MAGNESIUM 2.2 1.6 - 2.6 mg/dL 10/11/2023 6:28 AM [facility] Blood 10/11/2023 3:30 AM MORTGAGE LOAN SPECIALIST 10/11/2023 5:43 AM MORTGAGE LOAN SPECIALIST Erik Chairez MD CHEMISTRY ORDERABLES Final Resul t Performing Organization Address City/[facility]/ZIP Co de Phone Number [facility] CLIA# [id number] [place] [address] * (ABNORMAL) CBC WITH DIFFERENTIAL (10/11/2023 3:30 AM MORTGAGE LOAN SPECIALIST) WBC 8.8 4.5 - 10.5 K/uL 10/11/2023 6:05 AM [facility] RBC 3.43(L) 4.50 - 5.40 M/uL 10/11/2023 6:05 AM [facility] HEMOGLOBIN 10.5(L) 13.6 - 16.5 g/dL 10/11/2023 6:05 AM [facility] HEMATOCRIT 32.7(L) 40.0 - 48.0 % 10/11/2023 6:05 AM [facility] MCV 95.4 82.0 - 99.0 fL 10/11/2023 6:05 AM [facility] MCH 30.7 27.8 - 34.5 pg 10/11/2023 6:05 AM [facility] LABORATORY [facility] MCHC 32.2(L) 32.5 - 35.5 g/dL 10/11/2023 6:05 AM [facility] RDW 18.7(H) 11.5 - 14.5 % 10/11/2023 6:05 AM [facility] PLATELETS 218 160 - 420 K/uL 10/11/2023 6:05 AM [facility] MPV 9.3 8.7 - 12.7 fL 10/11/2023 6:05 AM MORTGAGE LOAN SPECIALIST [facility] NEUTROPHILS 67 % 10/11/2023 6:05 AM MORTGAGE LOAN SPECIALIST [facility] LYMPHOCYTES 18 % 10/11/2023 6:05 AM MORTGAGE LOAN SPECIALIST [facility] MONOCYTES 7 % 10/11/2023 6:05 AM MORTGAGE LOAN SPECIALIST [facility] LABORATORY [facility] EOSINOPHILS 7 % 10/11/2023 6:05 AM [facility] BASOPHILS 1 % 10/11/2023 6:05 AM MORTGAGE LOAN SPECIALIST [facility]OR[facility] NEUTROPHIL ABSOLUTE 5.90 1.90 - 7.00 K/uL 10/11/2023 6:05 AM [facility] LYMPHOCYTE ABSOLUTE 1.60 0.70 - 4.50 K/uL 10/11/2023 6:05 AM [facility] MONOCYTE ABSOLUTE 0.60 0.10 - 1.30 K/uL 10/11/2023 6:05 AM [facility] EOSINOPHIL ABSOLUTE 0.60 0.00 - 0.70 K/uL 10/11/2023 6:05 AM MORTGAGE LOAN SPECIALIST [facility] LABOR[facility] BASOPHILS ABSOLUTE 0.10 0.00 - 0.20 K/uL 10/11/2023 6:05 AM [facility] Blood 10/11/2023 3:30 AM MORTGAGE LOAN SPECIALIST 10/11/2023 5:43 AM MORTGAGE LOAN SPECIALIST us Erik Chariez MD HEMATOLOGY ORDERABLES Final Resu lt [facility] CLIA# [id number] [place] [address] * (ABNORMAL) RENAL FUNCTION PANEL (10/11/2023 3:30 AM MORTGAGE LOAN SPECIALIST) SODIUM 145 136 - 145 mmol/L 10/11/2023 6:28 AM [facility] POTASSIUM 4.0 3.4 - 5.1 mmol/L 10/11/2023 6:28 AM [facility] CHLORIDE 106 98 - 107 mmol/L 10/11/2023 6:[address] [facility] CO2 26 22 - 29 mmol/L 10/11/2023 6:28 AM [facility] CALCIUM 9.3 8.6 - 10.4 mg/dL 10/11/2023 6:28 AM [facility] BUN 38(H) 6 - 20 mg/dL 10/11/2023 6:28 AM [facility] CREATININE 1.38(H) 0.67 - 1.17 mg/dL 10/11/2023 6:28 AM [facility] Comment:The GFR result is no t clinically significant on patients <18 or >70 years of age. GLUCOSE 85 74 - 99 mg/dL 10/11/2023 6:28 AM [facility] ALBUMIN 3.4(L) 3.5 - 5.2 g/dL 10/11/2023 6:28 AM [facility] PHOSPHORUS 3.9 2.5 - 4.5 mg/dL 10/11/2023 6:28 AM [facility] GFR 51 mL/min/1.7 3 sq meter 10/11/2023 6:28 AM [facility] Comment:eGFR calculated with 2020 CKD-EPI equation. Vegetarian diet, extremely high or low muscle mass, and may affect results. Cystatin C with Glomerular Filtration Rate is a suitable alternative for these patients. ANION GAP 13 8 - 16 mmol/L 10/11/2023 6:28 AM MORTGAGE LOAN SPECIALIST [facility] LABORATORY [facility] Blood 10/11/2023 3:30 AM MORTGAGE LOAN SPECIALIST 10/11/2023 5:43 AM MORTGAGE LOAN SPECIALIST Erik Chairez MD CHEMISTRY ORDERABLES Final Resul t [facility] CLIA# [id number] [place] [address] documented in this encounter Visit Diagnoses Not on filedocumented in this encounter Additional Health Concerns Infection Onset Date Last Indicated Resolved Time CRE-CP Comment:10/09/23 Klebsiella pneumoniae, Sputum 10/09/2023 10/09/2023 05/28/2024 2:37 PM C DT 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
--- OUTSIDE RECORDS SUMMARY | 2024-12-31 14:52 | XMS_ITS | Encounter Summary ---
Author Organization [facility] Address [address] [place] [address] Care Team Providers Care Press Reader Name Role Phone Unavailable Primary Care Provider Unavailabl e Encounter Details Date Type Department Care Team (Late st Contact Info) Description 11/10/2023 Lab Requisition [facility] Laboratory Services [address] [place] [address] [place] [address] [place] [address] Social History Tobacco Use Types Packs/Day Years Used Date Smoking Tobacco: Never Assessed Sex and Gender Information Value Date Recorded Sex Assigned at Not on file Legal Sex Male 9:18 AM SURG NURSE Gender Identity Not on file Sexual Orientation Not on file documented as of this encounter Plan of Treatment Not on file documented as of this encounter Procedures Procedure Name Priority Date/Time Associated Diagnosis Comments CBC WITH DIFFERENTIAL Routine 11/10/2023 6:10 AM SURG NURSE BASIC METABOLIC PANEL Routine 11/10/2023 6:10 AM SURG NURSE documented in this encounter Results * (ABNORMAL) CBC WITH DIFFERENTIAL (11/10/2023 6:10 AM SURG NURSE) WBC 7.9 4.5 - 10.5 K/uL 11/10/2023 6:55 AM SURG NURSE [facility]ATORY SERVICES - [facility] RBC 3.65(L) 4.50 - 5.40 M/uL 11/10/2023 6:55 AM SURG NURSE [facility] LABORATORY [facility] HEMOGLOBIN 10.8(L) 13.6 - 16.5 g/dL 11/10/2023 6:55 AM SURG NURSE [facility] - [facility] HEMATOCRIT 33.6(L) 40.0 - 48.0 % 11/10/2023 6:55 AM SURG NURSE [facility] LABORATORY SERVICES [facility] MCV 92.0 82.0 - 99.0 fL 11/10/2023 6:55 AM SURG NURSE [facility] LABORATORY SERVICES [facility] MCH 29.7 27.8 - 34.5 pg 11/10/2023 6:55 AM SURG NURSE [facility] LABORATORY SERVICES [facility] MCHC 32.2(L) 32.5 - 35.5 g/dL 11/10/2023 6:55 AM SURG NURSE [facility] LABORATORY SERVICES [facility] RDW 17.0(H) 11.5 - 14.5 % 11/10/2023 6:55 AM SURG NURSE [facility] LABORATORY SERVICES [facility] PLATELETS 251 160 - 420 K/uL 11/10/2023 6:55 AM SURG NURSE [facility] MPV 9.2 8.7 - 12.7 fL 11/10/2023 6:55 AM SURG NURSE [facility] LABORATORY SERVICES [facility] NEUTROPHILS 62 % 11/10/2023 6:55 AM SURG NURSE [facility]ORY SERVICES [facility] LYMPHOCYTES 22 % 11/10/2023 6:55 AM SURG NURSE [facility] MONOCYTES 5 % 11/10/2023 6:55 AM SURG NURSE [facility] EOSINOPHILS 10 % 11/10/2023 6:55 AM SURG NURSE [facility] BASOPHILS 1 % 11/10/2023 6:55 AM SURG NURSE [facility] SERVICES [facility] NEUTROPHIL ABSOLUTE 4.90 1.90 - 7.00 K/uL 11/10/2023 6:55 AM SURG NURSE [facility] LAB[facility]ATORY SERVICES [facility] LYMPHOCYTE ABSOLUTE 1.70 0.70 - 4.50 K/uL 11/10/2023 6:55 AM SURG NURSE [facility]ATORY SERVICES [facility] MONOCYTE ABSOLUTE 0.40 0.10 - 1.30 K/uL 11/10/2023 6:55 AM SURG NURSE [facility]ATORY SERVICES [facility] EOSINOPHIL ABSOLUTE 0.80(H) 0.00 - 0.70 K/uL 11/10/2023 6:55 AM SURG NURSE [facility] BASOPHILS ABSOLUTE 0.10 0.00 - 0.20 K/uL 11/10/2023 6:55 AM [facility] Blood 11/10/2023 6:10 AM SURG NURSE 11/10/2023 6:41 AM SURG NURSE Erik Chairez MD HEMATOLOGY ORDERABLES Final Resu lt [facility] CLIA# [id number] [address] [place] [address] * (ABNORMAL) BASIC METABOLIC PANEL (11/10/2023 6:10 AM SURG NURSE) SODIUM 139 136 - 145 mmol/L 11/10/2023 7:14 AM [facility] POTASSIUM 4.2 3.4 - 5.1 mmol/L 11/10/2023 7:14 AM [facility] CHLORIDE 103 98 - 107 mmol/L 11/10/2023 7:14 AM [facility] CO2 26 22 - 29 mmol/L 11/10/2023 7:14 AM [facility] CALCIUM 9.4 8.6 - 10.4 mg/dL 11/10/2023 7:14 AM [facility] BUN 39(H) 6 - 20 mg/dL 11/10/2023 7:14 AM [facility] CREATININE 0.98 0.67 - 1.17 mg/dL 11/10/2023 7:14 AM [facility] Comment:The GFR result is no t clinically significant on patients <18 or >70 years of age. GLUCOSE 111(H) 74 - 99 mg/dL 11/10/2023 7:14 AM [facility] GFR >60 mL/min/1.7 3 sq meter 11/10/2023 7:14 AM [facility] Comment:eGFR calculated with 2020 CKD-EPI equation. Vegetarian diet, extremely high or low muscle mass, and may affect results. Cystatin C with Glomerular Filtration Rate is a suitable alternative for these patients. ANION GAP 10 8 - 16 mmol/L 11/10/2023 7:14 AM SURG NURSE [facility]ATORY SERVICES [facility] Blood 11/10/2023 6:10 AM SURG NURSE 11/10/2023 6:41 AM SURG NURSE Erik Chairez MD CHEMISTRY ORDERABLES Final Resul t [facility] LAB[facility] CLIA# [id number] [address] [place] [address] documented in this encounter Visit Diagnoses Not on filedocumented in this encounter Additional Health Concerns Infection Onset Date Last Indicated Resolved Time CRE-CP Comment:10/09/23 Klebsiella pneumoniae, Sputum 10/09/2023 10/09/2023 05/28/2024 2:37 PM C 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
--- OUTSIDE RECORDS SUMMARY | 2024-12-31 14:52 | XMS_ITS | Encounter Summary ---
Author Organization [facility] Address [address] [place] [address] Care Team Providers Care Teller Manager Name Role Phone Unavailable Primary Care Provider Unavailabl e Encounter Details Date Type Department Care Team (Late st Contact Info) Description 10/10/2023 Lab Requisition [facility] Laboratory Services [address] [place] [address] [place] [address] [place] [address] Social History Tobacco Use Types Packs/Day Years Used Date Smoking Tobacco: Never Assessed Sex and Gender Information Value Date Recorded Sex Assigned at Not on file Legal Sex Male 9:18 AM CONSTRUCTION CARPENTER Gender Identity Not on file Sexual Orientation Not on file documented as of this encounter Plan of Treatment Not on file documented as of this encounter Procedures Procedure Name Priority Date/Time Associated Diagnosis Comments CBC WITH DIFFERENTIAL Routine 10/10/2023 3:30 AM CONSTRUCTION CARPENTER PTT Routine 10/10/2023 3:30 AM CONSTRUCTION CARPENTER PROTIME-INR Routine 10/10/2023 3:30 AM CONSTRUCTION CARPENTER PREALBUMIN Routine 10/10/2023 3:30 AM CONSTRUCTION CARPENTER COMPREHENSIVE METABOLIC PANEL Routine 10/10/2023 3:30 AM CONSTRUCTION CARPENTER documented in this encounter Results * PTT (10/10/2023 3:30 AM CONSTRUCTION CARPENTER) PTT 23.4 23.1 - 37.1 seconds 10/10/2023 10:14 AM CONSTRUCTION CARPENTER [facility]ORAT[facility] SERVICES [facility] Blood Collection / Unknown 10/10/2023 3:30 AM CONSTRUCTION CARPENTER 10/10/2023 9:51 AM CONSTRUCTION CARPENTER Erik Chairez MD HEMATOLOGY ORDERABLES Final Resu lt [facility] CLIA# [id number] [place] [address] * (ABNORMAL) PROTIME-INR (10/10/2023 3:30 AM CONSTRUCTION CARPENTER) PROTIME 15.0(H) 11.5 - 14.7 Seconds 10/10/2023 10:14 AM CONSTRUCTION CARPENTER [facility] INR 1.2(H) 0.9 - 1.1 10/10/2023 10:14 AM CONSTRUCTION CARPENTER [facility] Blood Collection / Unknown 10/10/2023 3:30 AM CONSTRUCTION CARPENTER 10/10/2023 9:51 AM CONSTRUCTION CARPENTER Erik Chairez MD HEMATOLOGY ORDERABLES Final Resu lt [facility] [employer] [facility] CLIA# [id number] [place] [address] * PREALBUMIN (10/10/2023 3:30 AM CONSTRUCTION CARPENTER) PREALBUMIN 23 20 - 40 mg/dL 10/10/2023 2:24 PM CONSTRUCTION CARPENTER [facility] Blood Collection / Unknown 10/10/2023 3:30 AM CONSTRUCTION CARPENTER 10/10/2023 9:51 AM CONSTRUCTION CARPENTER Erik Chairez MD CHEMISTRY ORDERABLES Final Resul t [facility] [employer] [facility] CLIA# [id number] [address] [place] [address] * (ABNORMAL) CBC WITH DIFFERENTIAL (10/10/2023 3:30 AM CONSTRUCTION CARPENTER) [facility] WBC 10.1 4.5 - 10.5 K/uL 10/10/2023 11:06 AM [facility] RBC 3.85(L) 4.50 - 5.40 M/uL 10/10/2023 11:06 AM [facility] HEMOGLOBIN 11.6(L) 13.6 - 16.5 g/dL 10/10/2023 11:06 AM [facility] [employer] [facility] HEMATOCRIT 36.6(L) 40.0 - 48.0 % 10/10/2023 11:06 AM [facility] [employer] [facility] MCV 95.2 82.0 - 99.0 fL 10/10/2023 11:06 AM [facility] [employer] [facility] MCH 30.1 27.8 - 34.5 pg 10/10/2023 11:06 AM [facility] [employer] [facility] MCHC 31.6(L) 32.5 - 35.5 g/dL 10/10/2023 11:06 AM [facility] [employer] [facility] RDW 19.2(H) 11.5 - 14.5 % 10/10/2023 11:06 AM [facility] [employer] [facility] PLATELETS 250 160 - 420 K/uL 10/10/2023 11:06 AM [facility] [employer] [facility] MPV 9.8 8.7 - 12.7 fL 10/10/2023 11:06 AM [facility] [employer] [facility] NEUTROPHILS 72 % 10/10/2023 11:06 AM [facility] [employer] [facility] LYMPHOCYTES 15 % 10/10/2023 11:06 AM CONSTRUCTION CARPENTER [facility] MONOCYTES 7 % 10/10/2023 11:06 AM CONSTRUCTION CARPENTER [facility] EOSINOPHILS 5 % 10/10/2023 11:06 AM CONSTRUCTION CARPENTER [facility] BASOPHILS 0 % 10/10/2023 11:06 AM [facility] NEUTROPHIL ABSOLUTE 7.20(H) 1.90 - 7.00 K/uL 10/10/2023 11:06 AM [facility] [employer] [facility] LYMPHOCYTE ABSOLUTE 1.50 0.70 - 4.50 K/uL 10/10/2023 11:06 AM CONSTRUCTION CARPENTER [facility] MONOCYTE ABSOLUTE 0.70 0.10 - 1.30 K/uL 10/10/2023 11:06 AM CONSTRUCTION CARPENTER [facility] EOSINOPHIL ABSOLUTE 0.50 0.00 - 0.70 K/uL 10/10/2023 11:06 AM CONSTRUCTION CARPENTER [facility] BASOPHILS ABSOLUTE 0.00 0.00 - 0.20 K/uL 10/10/2023 11:06 AM CONSTRUCTION CARPENTER [facility] [employer] [facility] Blood Collection / Unknown 10/10/2023 3:30 AM CONSTRUCTION CARPENTER 10/10/2023 9:51 AM CONSTRUCTION CARPENTER us Erik Chairez MD HEMATOLOGY ORDERABLES Final Resu lt [facility] CLIA# [id number] [place] [address] * (ABNORMAL) COMPREHENSIVE METABOLIC PANEL (10/10/2023 3:30 AM CONSTRUCTION CARPENTER) SODIUM 142 136 - 145 mmol/L 10/10/2023 10:49 AM [facility] [employer] [facility] POTASSIUM 4.1 3.4 - 5.1 mmol/L 10/10/2023 10:49 AM [facility] [employer] [facility] CHLORIDE 104 98 - 107 mmol/L 10/10/2023 10:49 AM [facility] [employer] [facility] CO2 23 22 - 29 mmol/L 10/10/2023 10:49 AM [facility] [employer] [facility] CALCIUM 9.4 8.6 - 10.4 mg/dL 10/10/2023 10:49 AM [facility] [employer] [facility] BUN 34(H) 6 - 20 mg/dL 10/10/2023 10:49 AM [facility] [employer] [facility] CREATININE 1.24(H) 0.67 - 1.17 mg/dL 10/10/2023 10:49 AM [facility] Comment:The GFR result is no t clinically significant on patients <18 or >70 years of age. GLUCOSE 91 74 - 99 mg/dL 10/10/2023 10:49 AM [facility] TOTAL PROTEIN 7.4 6.3 - 8.7 g/dL 10/10/2023 10:49 AM [facility] ALBUMIN 3.6 3.5 - 5.2 g/dL 10/10/2023 10:49 AM [facility] BILIRUBIN TOTAL 0.6 0.2 - 1.1 mg/dL 10/10/2023 10:49 AM [facility] ALKALINE PHOSPHATASE 84 40 - 150 U/L 10/10/2023 10:49 AM [facility] AST 15 0 - 41 U/L 10/10/2023 10:49 AM [facility] ALT 13 0 - 41 U/L 10/10/2023 10:49 AM [facility] GFR 58 mL/min/1.7 3 sq meter 10/10/2023 10:49 AM [facility] Comment:eGFR calculated with 2020 CKD-EPI equation. Vegetarian diet, extremely high or low muscle mass, and may affect results. Cystatin C with Glomerular Filtration Rate is a suitable alternative for these patients. ANION GAP 15 8 - 16 mmol/L 10/10/2023 10:49 AM [facility] Blood Collection / Unknown 10/10/2023 3:30 AM CONSTRUCTION CARPENTER 10/10/2023 9:51 AM CONSTRUCTION CARPENTER us Erik Chairez MD CHEMISTRY ORDERABLES Final Resul t 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
--- OUTSIDE RECORDS SUMMARY | 2024-12-31 14:52 | XMS_ITS | Encounter Summary ---
Author Organization [facility] Address [address] [place] [address] Care Team Providers Care Nursing Program Coordinator Name Role Phone Unavailable Primary Care Provider Unavailabl e Encounter Details Date Type Department Care Team (Late st Contact Info) Description 11/07/2023 Lab Requisition [facility] Laboratory Services [address] [place] [address] [place] [address] [place] [address] Social History Tobacco Use Types Packs/Day Years Used Date Smoking Tobacco: Never Assessed Sex and Gender Information Value Date Recorded Sex Assigned at Not on file Legal Sex Male 9:18 AM FUEL CELL SYSTEMS ENGINEER Gender Identity Not on file Sexual Orientation Not on file documented as of this encounter Plan of Treatment Not on file documented as of this encounter Procedures Procedure Name Priority Date/Time Associated Diagnosis Comments THEOPHYLLINE LEVEL Routine 11/07/2023 8: 40 AM FUEL CELL SYSTEMS ENGINEER documented in this encounter Results * (ABNORMAL) THEOPHYLLINE LEVEL (11/07/2023 8:40 AM FUEL CELL SYSTEMS ENGINEER) THEOPHYLLINE LEVEL <0.8(L) 10.0 - 20.0 ug/mL 11/07/2023 3:56 PM FUEL CELL SYSTEMS ENGINEER [facility] Comment:Verified by repeat a nalysis. TDM LAST DATE, TIME, AMT (TIFFANIE) Patient unable to state date. time or dose. 11/07/2023 3:56 PM FUEL CELL SYSTEMS ENGINEER [facility] LAST DOSE AMT, THEOPHYLLINE Other 11/07/2023 3:56 PM FUEL CELL SYSTEMS ENGINEER [facility] Comment:80 mg Blood 11/07/2023 8:40 AM FUEL CELL SYSTEMS ENGINEER 11/07/2023 10:34 AM FUEL CELL SYSTEMS ENGINEER Narrative [facility] - 11/07/2023 3:56 PM FUEL CELL SYSTEMS ENGINEER Theophylline Toxic Levels: 6 months - Adult = >20.0 ug/mL 0 - 6 months = >15.0 ug/mL Erik Chairez MD CHEMISTRY ORDERABLES Final Resul t [facility] CLIA# [id number] [address] [place] [address] [facility] CLIA# [id number] [address] [place] [address] documented in this encounter Visit Diagnoses Not on filedocumented in this encounter Additional Health Concerns Infection Onset Date Last Indicated Resolved Time CRE-CP Comment:10/09/23 Klebsiella pneumoniae, Sputum 10/09/2023 10/09/2023 05/28/2024 2:37 PM C 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
--- OUTSIDE RECORDS SUMMARY | 2024-12-31 14:52 | XMS_ITS | Encounter Summary ---
Author Organization [facility] Address [address] [place] [address] Care Team Providers Care Staff Research Associate Name Role Phone Unavailable Primary Care Provider Unavailabl e Encounter Details Date Type Department Care Team (Late st Contact Info) Description 10/20/2023 Lab Requisition [facility] Laboratory Services [address] [place] [address] [place] [address] [place] [address] Social History Tobacco Use Types Packs/Day Years Used Date Smoking Tobacco: Never Assessed Sex and Gender Information Value Date Recorded Sex Assigned at Not on file Legal Sex Male 9:18 AM LAND CLEARER Gender Identity Not on file Sexual Orientation Not on file documented as of this encounter Plan of Treatment Not on file documented as of this encounter Procedures Procedure Name Priority Date/Time Associated Diagnosis Comments CBC WITH DIFFERENTIAL Routine 10/20/2023 2:20 AM LAND CLEARER BASIC METABOLIC PANEL Routine 10/20/2023 2:20 AM LAND CLEARER documented in this encounter Results * (ABNORMAL) CBC WITH DIFFERENTIAL (10/20/2023 2:20 AM LAND CLEARER) WBC 8.3 4.5 - 10.5 K/uL 10/20/2023 5:25 AM LAND CLEARER [facility] - [facility] RBC 3.82(L) 4.50 - 5.40 M/uL 10/20/2023 5:25 AM LAND CLEARER [facility] HEMOGLOBIN 11.2(L) 13.6 - 16.5 g/dL 10/20/2023 5:25 AM LAND CLEARER [facility] - [facility] HEMATOCRIT 35.0(L) 40.0 - 48.0 % 10/20/2023 5:25 AM LAND CLEARER [facility] MCV 91.6 82.0 - 99.0 fL 10/20/2023 5:25 AM LAND CLEARER [facility] - [facility] MCH 29.4 27.8 - 34.5 pg 10/20/2023 5:25 AM LAND CLEARER [facility] MCHC 32.1(L) 32.5 - 35.5 g/dL 10/20/2023 5:25 AM LAND CLEARER [facility] - [facility] RDW 17.4(H) 11.5 - 14.5 % 10/20/2023 5:25 AM LAND CLEARER [facility] - [facility] PLATELETS 255 160 - 420 K/uL 10/20/2023 5:25 AM LAND CLEARER [facility] MPV 9.4 8.7 - 12.7 fL 10/20/2023 5:25 AM LAND CLEARER [facility] - [facility] NEUTROPHILS 60 % 10/20/2023 5:25 AM LAND CLEARER [facility] LYMPHOCYTES 23 % 10/20/2023 5:25 AM LAND CLEARER [employer] LABORATORY SERVICES [facility] MONOCYTES 6 % 10/20/2023 5:25 AM LAND CLEARER [facility] EOSINOPHILS 11 % 10/20/2023 5:25 AM LAND CLEARER [facility] BASOPHILS 1 % 10/20/2023 5:25 AM LAND CLEARER [facility] NEUTROPHIL ABSOLUTE 4.90 1.90 - 7.00 K/uL 10/20/2023 5:25 AM LAND CLEARER [facility] LYMPHOCYTE ABSOLUTE 1.90 0.70 - 4.50 K/uL 10/20/2023 5:25 AM LAND CLEARER [employer] LABORATORY SERVICES [facility] MONOCYTE ABSOLUTE 0.50 0.10 - 1.30 K/uL 10/20/2023 5:25 AM LAND CLEARER [facility] EOSINOPHIL ABSOLUTE 0.90(H) 0.00 - 0.70 K/uL 10/20/2023 5:25 AM LAND CLEARER [facility] BASOPHILS ABSOLUTE 0.00 0.00 - 0.20 K/uL 10/20/2023 5:25 AM [facility] Blood 10/20/2023 2:20 AM LAND CLEARER 10/20/2023 5:15 AM LAND CLEARER Erik Chairez MD HEMATOLOGY ORDERABLES Final Resu lt [facility] CLIA# [id number] [address] [place] [address] * (ABNORMAL) BASIC METABOLIC PANEL (10/20/2023 2:20 AM LAND CLEARER) SODIUM 140 136 - 145 mmol/L 10/20/2023 5:53 AM [facility] POTASSIUM 3.8 3.4 - 5.1 mmol/L 10/20/2023 5:53 AM [facility] CHLORIDE 101 98 - 107 mmol/L 10/20/2023 5:53 AM [facility] CO2 26 22 - 29 mmol/L 10/20/2023 5:53 AM [facility] CALCIUM 9.6 8.6 - 10.4 mg/dL 10/20/2023 5:53 AM [facility] BUN 30(H) 6 - 20 mg/dL 10/20/2023 5:53 AM [facility] CREATININE 0.89 0.67 - 1.17 mg/dL 10/20/2023 5:53 AM [facility] Comment:The GFR result is no t clinically significant on patients <18 or >70 years of age. GLUCOSE 110(H) 74 - 99 mg/dL 10/20/2023 5:53 AM [facility] GFR >60 mL/min/1.7 3 sq meter 10/20/2023 5:53 AM [facility] Comment:eGFR calculated with 2020 CKD-EPI equation. Vegetarian diet, extremely high or low muscle mass, and may affect results. Cystatin C with Glomerular Filtration Rate is a suitable alternative for these patients. ANION GAP 13 8 - 16 mmol/L 10/20/2023 5:53 AM LAND CLEARER [facility] Blood 10/20/2023 2:20 AM LAND CLEARER 10/20/2023 5:15 AM LAND CLEARER Erik Chairez MD CHEMISTRY ORDERABLES Final Resul t [facility] CLIA# [id number] [place] [address] documented in this encounter Visit Diagnoses Not on filedocumented in this encounter Additional Health Concerns Infection Onset Date Last Indicated Resolved Time CRE-CP Comment:10/09/23 Klebsiella pneumoniae, Sputum 10/09/2023 10/09/2023 05/28/2024 2:37 PM C 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
--- OUTSIDE RECORDS SUMMARY | 2024-12-31 14:52 | XMS_ITS | Encounter Summary ---
Author Organization [facility] Address [address] [place] [address] Care Team Providers Care Cell Attendant Helper Name Role Phone Demond Stark MD Primary Care Provider Encounter Details Date Type Department Care Team (Late Contact Info) Description 06/28/2023 Lab Requisition [facility] - DermPath Lab [address] [place] [phone] Jaxon Anaya MD [address] [place], [place] [id number] Social History Tobacco Use Types Packs/Day Years [...] Visit [facility] - Neurology [address] [place] [phone] Alberto Jeffers MD [address] [facility] [place] [phone] documented as of this encounter Procedures Procedure Name Priority Date/Time Associated Diagnosis Comments DERMATOPATHOLOGY Routine 06/26/2023 12:0 0 AM CDT documented in this encounter Results * DERMATOPATHOLOGY (06/26/2023 12:00 AM CDT) Case Report Dermatopathology Report Case: [id number] Authorizing Provider: Jaxon Anaya MD Collected: 06/26/2023 12:00 AM Ordering Location: [facility] DermPath Lab Received: 06/28/2023 09:48 AM Pathologist: Maceknzie Ureña MD Specimen: Skin, right paraspinal mid [...] back.The specimen consists of an ellipse measuring [id number] mm and is oriented with the suture/notch [...] characteristic determined by the Dermatopathology Laboratory at [facility], directed by Dr. Georgina Young. These tests need not be, and therefore are not, approved by the [place] Food and Drug Administration. The tests are used for clinical purposes. Billing Codes Specimen Charges Stain Charges 78192 1 3 4:58 PM CDT DERMATOPATHOLOGY LABORATORY Embedded Images 3 4:58 PM CDT DERMATOPATHOLOGY LABORATORY Pathology/Cytolog y TISSUE SPECIMEN FROM SKIN / Unknown 06/26/2023 06/28/2023 9:48 AM CDT Jaxon Anaya MD LAB - PATHOLOGY/CYTO LOGY ORDERABLES DERMATOPATHOLOGY LABORATORY [facility] - Department of Dermatology [facility] Medicine [address] [place] [address] [phone] documented in this encounter Visit Diagnoses Not on filedocumented in this encounter Care Teams Cell Attendant Helper Relationship Specialty Start Date End Date Demond Stark MD [address] [place] [address] PCP - General 10/03/15 documented as of this encounter
--- OUTSIDE RECORDS SUMMARY | 2024-12-31 14:52 | XMS_ITS | Encounter Summary ---
Author Organization [facility] Address [address] [facility] [address] [place] [address] Care Team Providers Care Pageant Director Name Role Phone Demond Stark MD Primary Care Provider [phone] Encounter Details Date Type Department Care Team (Late st Contact Info) Description 10/16/2016 Orders Only [facility] ProviderTaylor MD [address] [place], [place] [phone] Social History Tobacco Use Types Packs/Day Years Used Date Smoking Tobacco: Former Cigarettes Q uit: 09/23/1969 Alcohol Use Standard Drinks/Week Comments Yes 0 (1 standard drink = 0.6 oz pur e alcohol) Sex and Gender Information Value Date Recorded Sex Assigned at Not on file Legal Sex Male 8:49 AM STRUCTURER Gender Identity Not on file Sexual Orientation [...] on filedocumented in this encounter Care Teams Pageant Director Relationship Specialty Start Date End Date Demond Stark MD PCP - General 07/23/11 documented as of this encounter
--- OUTSIDE RECORDS SUMMARY | 2024-12-31 14:52 | XMS_ITS | Encounter Summary ---
Author Organization [facility] Address [address] [place] [address] Care Team Providers Care Instrumentation Technician Name Role Phone Unavailable Primary Care Provider Unavailabl e Encounter Details Date Type Department Care Team (Late st Contact Info) Description 11/01/2023 Lab Requisition [facility] Laboratory Services [address] [place] [address] [place] [address] [place] [address] Social History Tobacco Use Types Packs/Day Years Used Date Smoking Tobacco: Never Assessed Sex and Gender Information Value Date Recorded Sex Assigned at Not on file Legal Sex Male 9:18 AM TEMPERATURE CONTROL INSPECTOR Gender Identity Not on file Sexual Orientation Not on file documented as of this encounter Plan of Treatment Not on file documented as of this encounter Procedures Procedure Name Priority Date/Time Associated Diagnosis Comments CBC WITH DIFFERENTIAL Routine 11/01/2023 4:20 AM TEMPERATURE CONTROL INSPECTOR BASIC METABOLIC PANEL Routine 11/01/2023 4:20 AM TEMPERATURE CONTROL INSPECTOR documented in this encounter Results * (ABNORMAL) CBC WITH DIFFERENTIAL (11/01/2023 4:20 AM TEMPERATURE CONTROL INSPECTOR) WBC 8.5 4.5 - 10.5 K/uL 11/01/2023 8:48 AM TEMPERATURE CONTROL INSPECTOR [facility] - [facility] RBC 3.87(L) 4.50 - 5.40 M/uL 11/01/2023 8:48 AM TEMPERATURE CONTROL INSPECTOR [facility] HEMOGLOBIN 11.2(L) 13.6 - 16.5 g/dL 11/01/2023 8:48 AM TEMPERATURE CONTROL INSPECTOR [facility] HEMATOCRIT 34.9(L) 40.0 - 48.0 % 11/01/2023 8:48 AM TEMPERATURE CONTROL INSPECTOR [facility] SERVICES [facility] MCV 90.3 82.0 - 99.0 fL 11/01/2023 8:48 AM TEMPERATURE CONTROL INSPECTOR [facility] - [facility] MCH 29.0 27.8 - 34.5 pg 11/01/2023 8:48 AM TEMPERATURE CONTROL INSPECTOR [facility] SERVICES [facility] MCHC 32.1(L) 32.5 - 35.5 g/dL 11/01/2023 8:48 AM TEMPERATURE CONTROL INSPECTOR [facility] SERVICES [facility] RDW 17.0(H) 11.5 - 14.5 % 11/01/2023 8:48 AM TEMPERATURE CONTROL INSPECTOR [facility] SERVICES [facility] PLATELETS 246 160 - 420 K/uL 11/01/2023 8:48 AM TEMPERATURE CONTROL INSPECTOR [facility] MPV 9.7 8.7 - 12.7 fL 11/01/2023 8:48 AM TEMPERATURE CONTROL INSPECTOR [facility] NEUTROPHILS 53 % 11/01/2023 8:48 AM TEMPERATURE CONTROL INSPECTOR [facility] LYMPHOCYTES 29 % 11/01/2023 8:48 AM TEMPERATURE CONTROL INSPECTOR [facility] MONOCYTES 7 % 11/01/2023 8:48 AM TEMPERATURE CONTROL INSPECTOR [facility] EOSINOPHILS 12 % 11/01/2023 8:48 AM TEMPERATURE CONTROL INSPECTOR [facility] BASOPHILS 1 % 11/01/2023 8:48 AM TEMPERATURE CONTROL INSPECTOR [facility]OR[facility] SERVICES [facility] NEUTROPHIL ABSOLUTE 4.50 1.90 - 7.00 K/uL 11/01/2023 8:48 AM TEMPERATURE CONTROL INSPECTOR [facility]OR[facility] SERVICES [facility] LYMPHOCYTE ABSOLUTE 2.40 0.70 - 4.50 K/uL 11/01/2023 8:48 AM TEMPERATURE CONTROL INSPECTOR [facility] MONOCYTE ABSOLUTE 0.60 0.10 - 1.30 K/uL 11/01/2023 8:48 AM TEMPERATURE CONTROL INSPECTOR [facility] SERVICES [facility] EOSINOPHIL ABSOLUTE 1.00(H) 0.00 - 0.70 K/uL 11/01/2023 8:48 AM TEMPERATURE CONTROL INSPECTOR [facility] SERVICES [facility] BASOPHILS ABSOLUTE 0.00 0.00 - 0.20 K/uL 11/01/2023 8:48 AM [facility] Blood Collection / Unknown 11/01/2023 4:20 AM TEMPERATURE CONTROL INSPECTOR 11/01/2023 7:57 AM TEMPERATURE CONTROL INSPECTOR Erik Chairez MD HEMATOLOGY ORDERABLES Final Resu lt [facility] CLIA# [id number] [address] [place] [address] * (ABNORMAL) BASIC METABOLIC PANEL (11/01/2023 4:20 AM TEMPERATURE CONTROL INSPECTOR) SODIUM 139 136 - 145 mmol/L 11/01/2023 9:12 AM [facility] POTASSIUM 3.7 3.4 - 5.1 mmol/L 11/01/2023 9:12 AM [facility] CHLORIDE 100 98 - 107 mmol/L 11/01/2023 9:12 AM [facility] CO2 27 22 - 29 mmol/L 11/01/2023 9:12 AM [facility] CALCIUM 9.8 8.6 - 10.4 mg/dL 11/01/2023 9:12 AM [facility] BUN 41(H) 6 - 20 mg/dL 11/01/2023 9:12 AM [facility] CREATININE 0.93 0.67 - 1.17 mg/dL 11/01/2023 9:12 AM [facility] Comment:The GFR result is no t clinically significant on patients <18 or >70 years of age. GLUCOSE 109(H) 74 - 99 mg/dL 11/01/2023 9:12 AM [facility] GFR >60 mL/min/1.7 3 sq meter 11/01/2023 9:12 AM [facility] Comment:eGFR calculated with 2020 CKD-EPI equation. Vegetarian diet, extremely high or low muscle mass, and may affect results. Cystatin C with Glomerular Filtration Rate is a suitable alternative for these patients. ANION GAP 12 8 - 16 mmol/L 11/01/2023 9:12 AM TEMPERATURE CONTROL INSPECTOR [facility] SERVICES [facility] Blood Collection / Unknown 11/01/2023 4:20 AM TEMPERATURE CONTROL INSPECTOR 11/01/2023 7:57 AM TEMPERATURE CONTROL INSPECTOR Erik Chairez MD CHEMISTRY ORDERABLES Final Resul t [facility] CLIA# [id number] [place] [address] documented in this encounter Visit Diagnoses Not on filedocumented in this encounter Additional Health Concerns Infection Onset Date Last Indicated Resolved Time 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
--- OUTSIDE RECORDS SUMMARY | 2024-12-31 14:52 | XMS_ITS | Clinical Summary ---
Author Organization [facility] Address [address] [place] [address] Care Team Providers Care Restaurant Lead Name Role Phone Demond Stark MD Primary Care Provider [phone] Allergies Active Allergy Reactions Criticality Noted Date Comments Diphenhydramine Hallucinations Medium 11/27/2023 Was not able to sleep and made him more anxious Lisinopril Cough Low Reaction: Cough, Pravastatin Muscle pain Medium Reaction: Muscular Pain, Quetiapine Other (See comments) Low 06/05/2024 Hallucinations, insomnia Simvastatin Muscle pain Medium Reaction: Muscular Pain, Zfgskqy-Qpd-Rue Reductase Inhibitors Muscle pain,Other (See comments) Medium 10/03/2015 Pt reports leg weakness/heavine ss when taking zocor. Medications levothyroxine (SYNTHROID) 112 mcg tablet Take 1 tablet (112 mcg total) by mouth flight paramedic before breakfast Active aspirin 81 mg tablet [...] 08/31/2024 Assessment & Plan (10/05/2024 10:54 AM AIRCRAFT INSPECTOR): Avoid ear cleaning techniques Avoid water to ears Follow up in 9 months for right ear tube check, earlier with ear drainage Assessment & Plan (08/31/2024 11:40 AM AIRCRAFT INSPECTOR): Right myringotomy with T-tube placement Risks and [...] 07/09/2024 Assessment & Plan (08/31/2024 11:39 AM AIRCRAFT INSPECTOR): Right myringotomy with T-tube placement Risks and [...] 08/07/2017 Assessment & Plan (08/07/2017 6:01 PM AIRCRAFT INSPECTOR): Has had elevated LFTs and a fatty liver. Bradycardia 08/07/2017 Assessment & Plan (08/07/2017 5:58 PM AIRCRAFT INSPECTOR): Asymptomatic bradycardia, on low-dose metoprolol which may eventually need to be reduced or discontinued. Traumatic subdural hematoma of neuraxis 10/15/19 17 Overview (12/28/2016): Traumatic subdural hematoma without loss of consciousness, sequela Statin intolerance 10/15/2016 Overview (12/28/2016): Statin intolerance Essential hypertension 07/20/2013 Overview (12/28/2016): Hypertension Assessment & Plan (08/07/2017 5:57 PM AIRCRAFT INSPECTOR): Hypertension is not under good control; reviewing [...] HYPERLIPIDEMIA Assessment & Plan (08/07/2017 6:03 PM AIRCRAFT INSPECTOR): Has refued further attempts at statin therapy. History of coronary artery bypass surgery 2009 Overview (12/26/2016): AORTOCORONARY BYPASS Coronary arteriosclerosis in [place] artery 12/20 Overview (08/07/2017): CRNRY ATHRSCL NATVE VSSL 2009: Non STEMI and CABG x3 (HOBSON to the LAD, sequential RA to OM and D1) Assessment & Plan (08/07/2017 6:00 PM AIRCRAFT INSPECTOR): 2009: Non STEMI and CABG x3 (HOBSON [...] 03/04/2018 Assessment & Plan (08/07/2017 5:58 PM AIRCRAFT INSPECTOR): Patient is going to have knee surgery soon and needs preoperative clearance. Coronary artery disease appears stable. Low risk for cardiac event with proposed surgery. 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/2009 03/25/2023 Overview (12/28/2016): SUBENDO INFARCT, SUBSEQ Encounters Date Type Department Care Team Description 12/21/2024 Results Follow-Up [facility] Cardiology [address] [place] [address] [address] [place] [phone] Cedric Dumont MD 12/17/2024 2:00 PM CDT Ancillary Procedure [place] [address] [place] [phone] Persistent atrial fibrillation (HCC) 11/09/2024 Telephone [place] [address] [place] [phone] Cedric Dumont MD 11/05/2024 Telephone [facility] Cardiology [address] [place] [address] [address] [place] [phone] Cedric Dumont MD cardiac clearance; samples 10/05/2024 10:45 AM AIRCRAFT INSPECTOR Office Visit [facility] - [address] [place] [address] Laura Oakes, Dysfunction of right eustachian tube (Primary Dx) from Last 3 Months Immunizations Immunization Administration Dates Next Due Influenza, Split 07/24/2010 [...] left hand, left side lips -resolved Cancer (HCC) Prostate - Radic al Prostectomy with lymph nodes Incontinence mild Inguinal [...] on file Legal Sex Male 8:49 AM AIRCRAFT INSPECTOR Gender Identity Not on file Sexual Orientation Not on file Obstetrics History Last Filed Vital Signs Vital Sign Reading Time Taken Comments Blood Pressure 160/88 09/22/2024 1:04 PM AIRCRAFT INSPECTOR Pulse 83 09/22/2024 1:04 PM AIRCRAFT INSPECTOR Temperature 36.3 C (97.4 F) 09/22/2024 1:04 PM AIRCRAFT INSPECTOR Respiratory Rate 18 09/22/2024 1:04 PM AIRCRAFT INSPECTOR Oxygen Saturation 97% 09/22/2024 1:04 PM AIRCRAFT INSPECTOR Inhaled Oxygen Concentration - - Weight 97.5 kg (214 lb 15.2 oz) 09/22/2024 9:41 AM AIRCRAFT INSPECTOR Height 182.9 cm (6') 09/22/2024 9:41 AM AIRCRAFT INSPECTOR Body Mass Index 29.15 09/22/2024 9:41 AM AIRCRAFT INSPECTOR Plan of Treatment Health Maintenance Due Date Last Done Comments Depression Screening 1940 DTaP/Tdap/Td Vaccine (1 - Tdap) 02/21/1951 Hepatitis B Screening 02/21/1958 Well Visit 65+ 02/21/2005 Zoster Vaccine (2 of 3) 11/09/2015 09/14/2015 Pneumococcal vaccine 65+ (2 of 2 - PPSV23) 01/02/2017 11/07/2016 Influenza Vaccine (Season Ended) 2025 08/06/2019, 07/29/2018, 08/12/2013, Additional history exists Fall Risk Assessment 09/01/2025 09/01/2024 Medical Devices Implanted Type Area Carton Lettering Machine Operator Device Identifier Shelf Expiration Date Model / Serial / Lot [employer] 1.32mm 4.8mm Modify Ear T Tube Ventilation Ultrasil Sterile Blue [id number] - [id number] Implanted:Qty: 1 on 09/22/2024 by Laura Oakes DO at [facility] Right: Ear [employer] 07/13/2034 [id number] / / [id number] Procedures Procedure Name Priority Date/Time Associated Diagnosis Comments TRANSTHORACIC ECHO (TTE) COMPLETE W DOPPLER/CF WO CONTRAST Routine 12/17/2024 2:57 PM CDT Persistent atrial fibrillation (HCC) from Last 3 Months Results * TRANSTHORACIC ECHO (TTE) COMPLETE W DOPPLER/CF WO CONTRAST (12/17/2024 2:57 PM CDT) LV EF 45-50 % CONS SCIMAGE Anatomical Region Laterality Modality Ultrasound 12/17/2024 2:11 PM CDT Narrative 12/17/2024 4:20 PM CDT [facility] Cardiology [address] [address] [address] [facility] [address], [place] [address] P:[phone] P:[phone] Echocardiographic Report Patient Name: LINCOLN KIMBALLTaylor : 1940 Study Date: 12/17/2024 2:11:41 PM Gender: M Tech: [facility] Location: [facility] Provider: CEDRIC DUMONT Height(Cm): 183 BSA: 2.22 Weight(Kg): 97.1 Heart Rate: 85 BP: 160 / 88 Quality: Good Order Provider: CEDRIC DUMONT PROCEDURES: Echocardiographic Report: Transthoracic echocardiogram with complete 2D, M-Mode, and color Doppler examination. With Strain Analysis. INDICATIONS: Atrial Fibrillation. MEASUREMENTS: 2D/MM Value Range Doppler Value Range EF Mod BP 50 % [ 52 - 72 ] JOJO Vmax 1.31 cm2 [ 2.00 - 4.00 ] EF Teich MM 50 % [ 52 - 72 ] AV Mean PG 11 mmHg Estimated EF 45-50 % AV Peak Tin 2.18 m/s [ 1.00 - 1.70 ] LVIDd 2D 5.61 cm [ 4.20 - 5.80 ] AV Peak PG 19 mmHg LVIDd MM 5.21 cm [ 4.20 - 5.80 ] AV VTI 42.89 cm LVIDs 2D 4.28 cm [ 2.50 - 4.00 ] LVOT Diam 2.10 cm [ 1.70 - 2.10 ] LVIDs MM 3.89 cm [ 2.50 - 4.00 ] LVOT Peak Tin 0.82 m/s [ 0.70 - 1.10 ] LVPWd 2D 1.29 cm [ 0.60 - 1.00 ] LVOT VTI 16.85 cm LVPWd MM 1.32 cm [ 0.60 - 1.00 ] MV E Peak Tin 1.26 m/s [ 0.60 - 1.30 ] IVSd 2D 1.39 cm [ 0.60 - 1.00 ] MV A Peak Tin 0.40 m/s [ 1.00 - 1.20 ] IVSd MM 1.41 cm [ 0.60 - 1.00 ] MV Mean PG 2 mmHg [ 0 - 5 ] LA Dimension 2D 5.59 cm [ 3.00 - 4.00 ] MV PHT 93 msec [ 20 - 100 ] LA Dimension MM 4.47 cm [ 3.00 - 4.00 ] MVA PHT 2.36 cm2 [ 2.00 - 4.00 ] AoR Diam 2D 3.50 cm [ 3.10 - 3.70 ] MV Decel Time 240 msec [ 104 - 258 ] AoR Diam MM 3.65 cm [ 3.10 - 3.70 ] PV Peak Tin 1.04 m/s [ 0.40 - 0.80 ] LA Volume Index 64 cc/m2 [ 16 - 34 ] TR Peak Tin 2.69 m/s [ 1.00 - 2.80 ] TR Peak PG 29 mmHg RVSP 32.00 mmHg [ 10.00 - 36.00 ] Lateral E` 0.09 m/s [ 0.10 - 0.15 ] E` 0.10 m/s E/E` 15 2D/MM Value Range Doppler Value Range - FINDINGS: Interpretation Site: Exam was interpreted at [facility]. Left Ventricle: Normal left ventricular size. Mild concentric left ventricular hypertrophy. Mild global left ventricular systolic dysfunction. Indeterminate diastolic function. Ejection fraction is measured at 50 %. Ejection Fraction is visually estimated to be 45- 50 %. Global Longitudinal Strain is -10 %. GLS is abnormal. Global longitudinal strain pattern shows apical sparing pattern. Right Ventricle: Normal right ventricular size. Normal right ventricular systolic function. Left Atrium: There is severe enlargement of left atrium. Right Atrium: There is moderate enlargement of right atrium. Atrial Septum: Normal atrial septum. Mitral Valve: Mild mitral valve regurgitation. Aortic Valve: Mild to moderate aortic stenosis. Peak Velocity of 2.18 m/s. Mean gradient of 11.0 mmHg. Valve area of 1.31 cm2. Aortic cusps appear severely calcified. Mild aortic valve regurgitation. Tricuspid Valve: Estimated peak RVSP is 37 mmHg. Mild tricuspid regurgitation. Pulmonic Valve: Pulmonic valve not well visualized. No evidence of pulmonic regurgitation. Pericardium: Normal pericardium with no significant pericardial effusion. Aorta: Normal aortic root. IVC: Normal size and no respiratory collapse consistent with elevated right atrial pressure (5-10 mmHg). CONCLUSIONS: Normal left ventricular size. Mild concentric left ventricular hypertrophy. Mild global left ventricular systolic dysfunction. Indeterminate diastolic function. Ejection fraction is measured at 50 %. Ejection Fraction is visually estimated to be 45- 50 %. Global Longitudinal Strain is -10 %. GLS is abnormal. Global longitudinal strain pattern shows apical sparing pattern. Normal right ventricular size. Normal right ventricular systolic function. There is severe enlargement of left atrium. There is moderate enlargement of right atrium. Mild mitral valve regurgitation. Mild to moderate aortic stenosis. Peak Velocity of 2.18 m/s. Mean gradient of 11.0 mmHg. Valve area of 1.31 cm2. Aortic cusps appear severely calcified. Mild aortic valve regurgitation. Estimated peak RVSP is 37 mmHg. Mild tricuspid regurgitation. Electronically Signed By: Koki Jimenez MD 12/17/2024 4:20:12 PM CDT Procedure Note Koki Jimenez MD - 12/17/2024 [facility] Medical Group Cardiology [address] [facility] [address] [address] [address] [facility] [address], [place] [address] P:[phone] P:[phone] Echocardiographic Report Patient Name: LINCOLN KIMBALL L : 1940 Study Date: 12/17/2024 2:11:41 PM Gender: M Tech: [facility] Location: [facility] Provider: CEDRIC DUMONT Height(Cm): 183 BSA: 2.22 Weight(Kg): 97.1 Heart Rate: 85 BP: 160 / 88 Quality: Good Order Provider: CEDRIC DUMONT PROCEDURES: Echocardiographic Report: Transthoracic echocardiogram with complete 2D, M-Mode, and color Dopplerexamination. With Strain Analysis. INDICATIONS: Atrial Fibrillation. MEASUREMENTS: 2D/MM Value Range Doppler ValueRange EF Mod BP 50 % [ 52 - 72 ] JOJO Vmax 1.31cm2 [ 2.00 - 4.00 ] EF Teich MM 50 % [ 52 - 72 ] AV Mean PG 11mmHg Estimated EF 45-50 % AV Peak Tin 2.18m/s [ 1.00 - 1.70 ] LVIDd 2D 5.61 cm [ 4.20 - 5.80 ] AV Peak PG 19mmHg LVIDd MM 5.21 cm [ 4.20 - 5.80 ] AV VTI 42.89cm LVIDs 2D 4.28 cm [ 2.50 - 4.00 ] LVOT Diam 2.10 cm[ 1.70 - 2.10 ] LVIDs MM 3.89 cm [ 2.50 - 4.00 ] LVOT Peak Tin 0.82m/s [ 0.70 - 1.10 ] LVPWd 2D 1.29 cm [ 0.60 - 1.00 ] LVOT VTI 16.85cm LVPWd MM 1.32 cm [ 0.60 - 1.00 ] MV E Peak Tin 1.26m/s [ 0.60 - 1.30 ] IVSd 2D 1.39 cm [ 0.60 - 1.00 ] MV A Peak Tin 0.40m/s [ 1.00 - 1.20 ] IVSd MM 1.41 cm [ 0.60 - 1.00 ] MV Mean PG 2 mmHg[ 0 - 5 ] LA Dimension 2D 5.59 cm [ 3.00 - 4.00 ] MV PHT 93 msec[ 20 - 100 ] LA Dimension MM 4.47 cm [ 3.00 - 4.00 ] MVA PHT 2.36cm2 [ 2.00 - 4.00 ] AoR Diam 2D 3.50 cm [ 3.10 - 3.70 ] MV Decel Time 240msec [ 104 - 258 ] AoR Diam MM 3.65 cm [ 3.10 - 3.70 ] PV Peak Tin 1.04m/s [ 0.40 - 0.80 ] LA Volume Index 64 cc/m2 [ 16 - 34 ] TR Peak Tin 2.69m/s [ 1.00 - 2.80 ] TR Peak PG 29 mmHg RVSP 32.00 mmHg [ 10.00 - 36.00 ] Lateral E` 0.09 m/s [ 0.10 - 0.15 ] E` 0.10 m/s E/E` 15 2D/MM Value Range Doppler ValueRange - FINDINGS: Interpretation Site: Exam was interpreted at [facility]. Left Ventricle: Normal left ventricular size. Mild concentric left ventricularhypertrophy. Mild global left ventricular systolic dysfunction. Indeterminate diastolic function.Ejection fraction is measured at 50 %. Ejection Fraction is visually estimated carmen 45-50 %. Global Longitudinal Strain is -10 %. GLS is abnormal. Global longitudinalstrain pattern shows apical sparing pattern. Right Ventricle: Normal right ventricular size. Normal right ventricular systolicfunction. Left Atrium: There is severe enlargement of left atrium. Right Atrium: There is moderate enlargement of right atrium. Atrial Septum: Normal atrial septum. Mitral Valve: Mild mitral valve regurgitation. Aortic Valve: Mild to moderate aortic stenosis. Peak Velocity of 2.18 m/s. Mean gradientof 11.0 mmHg. Valve area of 1.31 cm2. Aortic cusps appear severely calcified. Mildaortic valve regurgitation. Tricuspid Valve: Estimated peak RVSP is 37 mmHg. Mild tricuspid regurgitation. Pulmonic Valve: Pulmonic valve not well visualized. No evidence of pulmonicregurgitation. Pericardium: Normal pericardium with no significant pericardial effusion. Aorta: Normal aortic root. IVC: Normal size and no respiratory collapse consistent with elevated rightatrial pressure (5-10 mmHg). CONCLUSIONS: Normal left ventricular size. Mild concentric left ventricularhypertrophy. Mild global left ventricular systolic dysfunction. Indeterminate diastolic function.Ejection fraction is measured at 50 %. Ejection Fraction is visually estimated carmen 45-50 %. Global Longitudinal Strain is -10 %. GLS is abnormal. Global longitudinalstrain pattern shows apical sparing pattern. Normal right ventricular size. Normal right ventricular systolicfunction. There is severe enlargement of left atrium. There is moderate enlargement of right atrium. Mild mitral valve regurgitation. Mild to moderate aortic stenosis. Peak Velocity of 2.18 m/s. Mean gradientof 11.0 mmHg. Valve area of 1.31 cm2. Aortic cusps appear severely calcified. Mildaortic valve regurgitation. Estimated peak RVSP is 37 mmHg. Mild tricuspid regurgitation. Electronically Signed By: Koki Jimenez MD 12/17/2024 4:20:12 PM CDT us Cedric Dumont MD CV ECHO PROCEDURES Final Result from Last 3 Months Insurance MEDICARE MEDICARE [facility] MEDICARE SUPPLEMENT Care Teams Restaurant Lead Relationship Specialty Start Date End Date Demond Stark MD [facility] - General 07/23/11
--- OUTSIDE RECORDS SUMMARY | 2024-12-31 14:52 | XMS_ITS | Encounter Summary ---
Author Organization [facility] Address [address] [place] [address] Care Team Providers Care Industrial Safety And Health Manager Name Role Phone Unavailable Primary Care Provider Unavailabl e Encounter Details Date Type Department Care Team (Late st Contact Info) Description 11/05/2023 Lab Requisition [facility] Laboratory Services [address] [place] [address] [place] [address] [place] [address] Social History Tobacco Use Types Packs/Day Years Used Date Smoking Tobacco: Never Assessed Sex and Gender Information Value Date Recorded Sex Assigned at Not on file Legal Sex Male 9:18 AM MACHINERY MECHANIC Gender Identity Not on file Sexual Orientation Not on file documented as of this encounter Plan of Treatment Not on file documented as of this encounter Procedures Procedure Name Priority Date/Time Associated Diagnosis Comments DIFFERENTIAL, MANUAL Routine 11/05/2023 3:30 AM MACHINERY MECHANIC CBC WITH DIFFERENTIAL Routine 11/05/2023 3:30 AM MACHINERY MECHANIC documented in this encounter Results * MANUAL DIFFERENTIAL (11/05/2023 3:30 AM MACHINERY MECHANIC) PLATELET EST. Consistent w Count 11/05/2023 6:05 AM MACHINERY MECHANIC [facility] RBC MORPHOLOGY Normal 11/05/2023 6:05 AM MACHINERY MECHANIC [facility] Blood Collection / Unknown 11/05/2023 3:30 AM MACHINERY MECHANIC 11/05/2023 5:05 AM MACHINERY MECHANIC Erik Chairez MD HEMATOLOGY ORDERABLES COM Final Result [facility] CLIA# [id number] [place] [address] * (ABNORMAL) CBC WITH DIFFERENTIAL (11/05/2023 3:30 AM MACHINERY MECHANIC) [facility] WBC 7.5 4.5 - 10.5 K/uL 11/05/2023 6:05 AM [facility] RBC 3.81(L) 4.50 - 5.40 M/uL 11/05/2023 6:05 AM [facility] HEMOGLOBIN 11.9(L) 13.6 - 16.5 g/dL 11/05/2023 6:05 AM [facility] HEMATOCRIT 35.6(L) 40.0 - 48.0 % 11/05/2023 6:05 AM [facility] [facility] MCV 93.5 82.0 - 99.0 fL 11/05/2023 6:05 AM [facility] [place] [facility] MCH 31.2 27.8 - 34.5 pg 11/05/2023 6:05 AM [facility] [place] [facility] MCHC 33.3 32.5 - 35.5 g/dL 11/05/2023 6:05 AM [facility] [place] [facility] RDW 17.0(H) 11.5 - 14.5 % 11/05/2023 6:05 AM [facility] [place] [facility] PLATELETS 243 160 - 420 K/uL 11/05/2023 6:05 AM [facility] [place] [facility] MPV 9.4 8.7 - 12.7 fL 11/05/2023 6:05 AM [facility] NEUTROPHILS 63 % 11/05/2023 6:05 AM MACHINERY MECHANIC [facility] [place] [facility] LYMPHOCYTES 23 % 11/05/2023 6:05 AM MACHINERY MECHANIC [facility] MONOCYTES 5 % 11/05/2023 6:05 AM [facility] EOSINOPHILS 9 % 11/05/2023 6:05 AM MACHINERY MECHANIC [facility] BASOPHILS 1 % 11/05/2023 6:05 AM MACHINERY MECHANIC [facility] NEUTROPHIL ABSOLUTE 4.70 1.90 - 7.00 K/uL 11/05/2023 6:05 AM MACHINERY MECHANIC [facility] LYMPHOCYTE ABSOLUTE 1.70 0.70 - 4.50 K/uL 11/05/2023 6:05 AM MACHINERY MECHANIC [facility] MONOCYTE ABSOLUTE 0.40 0.10 - 1.30 K/uL 11/05/2023 6:05 AM MACHINERY MECHANIC [facility] EOSINOPHIL ABSOLUTE 0.70 0.00 - 0.70 K/uL 11/05/2023 6:05 AM MACHINERY MECHANIC [facility] BASOPHILS ABSOLUTE 0.00 0.00 - 0.20 K/uL 11/05/2023 6:05 AM MACHINERY MECHANIC [facility] Blood Collection / Unknown 11/05/2023 3:30 AM MACHINERY MECHANIC 11/05/2023 5:05 AM MACHINERY MECHANIC Erik Chairez MD HEMATOLOGY ORDERABLES Final Resu lt [facility] CLIA# [id number] [address] [place] [address] documented in this encounter Visit Diagnoses Not on filedocumented in this encounter Additional Health Concerns Infection Onset Date Last Indicated Resolved Time 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
--- OUTSIDE RECORDS SUMMARY | 2024-12-31 14:52 | XMS_ITS | Encounter Summary ---
Author Organization [facility] Health Address [address] [place] [address] Care Team Providers Care Air Operations Manager Name Role Phone Demond Stark MD Primary Care Provider [phone] Encounter Details Date Type Department Care Team (Late Contact Info) Description 06/13/2023 Lab Requisition [facility] [address] [place] [phone] Jaxon Anaya MD [address] [place], [place] [id number] Social History Tobacco Use Types Packs/Day Years [...] Visit [facility] - Neurology [address] [place] [phone] Alberto Jeffers MD [address] [facility] [place] [phone] documented as of this encounter Procedures Procedure Name Priority Date/Time Associated Diagnosis Comments DERMATOPATHOLOGY Routine 06/12/2023 12:0 0 AM CDT documented in this encounter Results * DERMATOPATHOLOGY (06/12/2023 12:00 AM CDT) Case Report Dermatopathology Report Case: [id number] Authorizing Provider: Jaxon Anaya MD Collected: 06/12/2023 12:00 AM Ordering Location: [facility] DermPath Lab Received: 06/13/2023 01:28 PM [...] specimen consists of a shave biopsy measuring [id number] mm. Jar 0. 3:42 PM CDT DERMATOPATHOLOGY [...] characteristic determined by the Dermatopathology Laboratory at [facility], directed by Dr. Georgina Young. These tests need not be, and therefore are not, approved by the [place] Food and Drug Administration. The tests are used for clinical purposes. Billing Codes Specimen Charges Stain Charges 50695 1 74963 1 3 3:42 PM CDT DERMATOPATHOLOGY LABORATORY Embedded Images 3 3:42 PM CDT DERMATOPATHOLOGY LABORATORY Pathology/Cytolog y TISSUE SPECIMEN FROM SKIN / Unknown 06/12/2023 06/13/2023 1:28 PM CDT Jaxon Anaya MD LAB - PATHOLOGY/CYTO LOGY ORDERABLES DERMATOPATHOLOGY LABORATORY [facility] - Department of Dermatology [facility] Medicine [address] [place] [address], [address] [phone] documented in this encounter Visit Diagnoses Not on filedocumented in this encounter Care Teams Air Operations Manager Relationship Specialty Start Date End Date Demond Stark MD [address] [place] [address] PCP - General 10/03/15 documented as of this encounter
--- OUTSIDE RECORDS SUMMARY | 2024-12-31 14:52 | XMS_ITS | Encounter Summary ---
Author Organization [facility] Address [address] [place] [address] Care Team Providers Care Python Web Developer Name Role Phone Unavailable Primary Care Provider Unavailabl e Encounter Details Date Type Department Care Team (Late st Contact Info) Description 10/26/2023 Lab Requisition [facility] Laboratory Services [address] [place] [address] [place] [id number] [place] [address] Social History Tobacco Use Types Packs/Day Years Used Date Smoking Tobacco: Never Assessed Sex and Gender Information Value Date Recorded Sex Assigned at Not on file Legal Sex Male 9:18 AM VARNISHER PLASTICOATER Gender Identity Not on file Sexual Orientation Not on file documented as of this encounter Plan of Treatment Not on file documented as of this encounter Procedures Procedure Name Priority Date/Time Associated Diagnosis Comments CBC WITH DIFFERENTIAL Routine 10/26/2023 3:20 AM VARNISHER PLASTICOATER BASIC METABOLIC PANEL Routine 10/26/2023 3:20 AM VARNISHER PLASTICOATER documented in this encounter Results * (ABNORMAL) CBC WITH DIFFERENTIAL (10/26/2023 3:20 AM VARNISHER PLASTICOATER) WBC 9.2 4.5 - 10.5 K/uL 10/26/2023 5:32 AM VARNISHER PLASTICOATER [facility] RBC 3.83(L) 4.50 - 5.40 M/uL 10/26/2023 5:32 AM VARNISHER PLASTICOATER [facility] HEMOGLOBIN 11.4(L) 13.6 - 16.5 g/dL 10/26/2023 5:32 AM VARNISHER PLASTICOATER [facility] HEMATOCRIT 35.4(L) 40.0 - 48.0 % 10/26/2023 5:32 AM VARNISHER PLASTICOATER [facility] MCV 92.4 82.0 - 99.0 fL 10/26/2023 5:32 AM VARNISHER PLASTICOATER [facility] MCH 29.6 27.8 - 34.5 pg 10/26/2023 5:32 AM VARNISHER PLASTICOATER [facility] MCHC 32.0(L) 32.5 - 35.5 g/dL 10/26/2023 5:32 AM VARNISHER PLASTICOATER [facility] RDW 17.3(H) 11.5 - 14.5 % 10/26/2023 5:32 AM VARNISHER PLASTICOATER [facility] PLATELETS 240 160 - 420 K/uL 10/26/2023 5:32 AM VARNISHER PLASTICOATER [facility] MPV 9.3 8.7 - 12.7 fL 10/26/2023 5:32 AM VARNISHER PLASTICOATER [facility] NEUTROPHILS 69 % 10/26/2023 5:32 AM VARNISHER PLASTICOATER [facility] LYMPHOCYTES 21 % 10/26/2023 5:32 AM VARNISHER PLASTICOATER [employer] [facility]ORAT[facility] MONOCYTES 6 % 10/26/2023 5:32 AM VARNISHER PLASTICOATER [facility] EOSINOPHILS 4 % 10/26/2023 5:32 AM VARNISHER PLASTICOATER [facility] BASOPHILS 1 % 10/26/2023 5:32 AM VARNISHER PLASTICOATER [facility] NEUTROPHIL ABSOLUTE 6.30 1.90 - 7.00 K/uL 10/26/2023 5:32 AM VARNISHER PLASTICOATER [facility] LYMPHOCYTE ABSOLUTE 1.90 0.70 - 4.50 K/uL 10/26/2023 5:32 AM [facility]ARNISHER PLASTICOATER [facility] MONOCYTE ABSOLUTE 0.50 0.10 - 1.30 K/uL 10/26/2023 5:32 AM VARNISHER PLASTICOATER [facility] EOSINOPHIL ABSOLUTE 0.40 0.00 - 0.70 K/uL 10/26/2023 5:32 AM VARNISHER PLASTICOATER [facility] BASOPHILS ABSOLUTE 0.00 0.00 - 0.20 K/uL 10/26/2023 5:32 AM [facility] Blood Collection / Unknown 10/26/2023 3:20 AM VARNISHER PLASTICOATER 10/26/2023 4:57 AM VARNISHER PLASTICOATER Erik Chairez MD HEMATOLOGY ORDERABLES Final Resu lt [facility] CLIA# [id number] [facility] [place] [address] * (ABNORMAL) BASIC METABOLIC PANEL (10/26/2023 3:20 AM VARNISHER PLASTICOATER) SODIUM 137 136 - 145 mmol/L 10/26/2023 5:58 AM [facility] POTASSIUM 4.2 3.4 - 5.1 mmol/L 10/26/2023 5:58 AM [facility] CHLORIDE 100 98 - 107 mmol/L 10/26/2023 5:58 AM [facility] CO2 27 22 - 29 mmol/L 10/26/2023 5:58 AM [facility] CALCIUM 9.8 8.6 - 10.4 mg/dL 10/26/2023 5:58 AM [facility] BUN 39(H) 6 - 20 mg/dL 10/26/2023 5:58 AM [facility] CREATININE 1.01 0.67 - 1.17 mg/dL 10/26/2023 5:58 AM [facility] Comment:The GFR result is no t clinically significant on patients <18 or >70 years of age. GLUCOSE 110(H) 74 - 99 mg/dL 10/26/2023 5:58 AM [facility] GFR >60 mL/min/1.7 3 sq meter 10/26/2023 5:58 AM [facility] Comment:eGFR calculated with 2020 CKD-EPI equation. Vegetarian diet, extremely high or low muscle mass, and may affect results. Cystatin C with Glomerular Filtration Rate is a suitable alternative for these patients. ANION GAP 10 8 - 16 mmol/L 10/26/2023 5:58 AM VARNISHER PLASTICOATER [facility] Blood Collection / Unknown 10/26/2023 3:20 AM VARNISHER PLASTICOATER 10/26/2023 4:57 AM VARNISHER PLASTICOATER Erik Chairez MD CHEMISTRY ORDERABLES Final Resul t [facility] CLIA# [id number] [place] [address] documented in this encounter Visit Diagnoses Not on filedocumented in this encounter Additional Health Concerns Infection Onset Date Last Indicated Resolved Time CRE-CP Comment:10/09/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
--- OUTSIDE RECORDS SUMMARY | 2024-12-31 14:52 | XMS_ITS | Encounter Summary ---
Author Organization [facility] Address [address] [place] [address] Care Team Providers Care Farmhand Name Role Phone Unavailable Primary Care Provider Unavailabl e Encounter Details Date Type Department Care Team (Late st Contact Info) Description 10/29/2023 Lab Requisition [facility] Laboratory Services [address] [place] [address] [place] [id number] [place] [address] Social History Tobacco Use Types Packs/Day Years Used Date Smoking Tobacco: Never Assessed Sex and Gender Information Value Date Recorded Sex Assigned at Not on file Legal Sex Male 9:18 AM WELDER Gender Identity Not on file Sexual Orientation Not on file documented as of this encounter Plan of Treatment Not on file documented as of this encounter Procedures Procedure Name Priority Date/Time Associated Diagnosis Comments CBC WITH DIFFERENTIAL Routine 10/29/2023 3:20 AM WELDER BASIC METABOLIC PANEL Routine 10/29/2023 3:20 AM WELDER documented in this encounter Results * (ABNORMAL) CBC WITH DIFFERENTIAL (10/29/2023 3:20 AM WELDER) WBC 8.0 4.5 - 10.5 K/uL 10/29/2023 8:18 AM WELDER [facility] RBC 3.85(L) 4.50 - 5.40 M/uL 10/29/2023 8:18 AM WELDER [facility] HEMOGLOBIN 11.6(L) 13.6 - 16.5 g/dL 10/29/2023 8:18 AM WELDER [facility] HEMATOCRIT 35.7(L) 40.0 - 48.0 % 10/29/2023 8:18 AM WELDER [facility] MCV 92.6 82.0 - 99.0 fL 10/29/2023 8:18 AM WELDER [facility] - [facility] MCH 30.0 27.8 - 34.5 pg 10/29/2023 8:18 AM WELDER [facility] MCHC 32.4(L) 32.5 - 35.5 g/dL 10/29/2023 8:18 AM WELDER [facility] RDW 17.3(H) 11.5 - 14.5 % 10/29/2023 8:18 AM WELDER [facility] PLATELETS 255 160 - 420 K/uL 10/29/2023 8:18 AM WELDER [facility] MPV 9.9 8.7 - 12.7 fL 10/29/2023 8:18 AM WELDER [facility] NEUTROPHILS 61 % 10/29/2023 8:18 AM WELDER [facility] LYMPHOCYTES 22 % 10/29/2023 8:18 AM [facility] MONOCYTES 6 % 10/29/2023 8:18 AM [facility] EOSINOPHILS 11 % 10/29/2023 8:18 AM WELDER [facility] BASOPHILS 1 % 10/29/2023 8:18 AM WELDER [facility] NEUTROPHIL ABSOLUTE 4.90 1.90 - 7.00 K/uL 10/29/2023 8:18 AM WELDER [facility] LYMPHOCYTE ABSOLUTE 1.70 0.70 - 4.50 K/uL 10/29/2023 8:18 AM [facility] MONOCYTE ABSOLUTE 0.50 0.10 - 1.30 K/uL 10/29/2023 8:18 AM WELDER [facility] EOSINOPHIL ABSOLUTE 0.80(H) 0.00 - 0.70 K/uL 10/29/2023 8:18 AM WELDER [facility] BASOPHILS ABSOLUTE 0.00 0.00 - 0.20 K/uL 10/29/2023 8:18 AM [facility] Blood Collection / Unknown 10/29/2023 3:20 AM WELDER 10/29/2023 7:59 AM WELDER Erik Chairez MD HEMATOLOGY ORDERABLES Final Resu lt [facility] CLIA# [id number] [address] [place] [address] * (ABNORMAL) BASIC METABOLIC PANEL (10/29/2023 3:20 AM WELDER) SODIUM 141 136 - 145 mmol/L 10/29/2023 8:38 AM [facility] POTASSIUM 4.5 3.4 - 5.1 mmol/L 10/29/2023 8:38 AM [facility] CHLORIDE 101 98 - 107 mmol/L 10/29/2023 8:38 AM [facility] CO2 28 22 - 29 mmol/L 10/29/2023 8:38 AM [facility] CALCIUM 10.2 8.6 - 10.4 mg/dL 10/29/2023 8:38 AM [facility] BUN 42(H) 6 - 20 mg/dL 10/29/2023 8:38 AM [facility] CREATININE 1.05 0.67 - 1.17 mg/dL 10/29/2023 8:38 AM [facility] Comment:The GFR result is no t clinically significant on patients <18 or >70 years of age. GLUCOSE 112(H) 74 - 99 mg/dL 10/29/2023 8:38 AM [facility] GFR >60 mL/min/1.7 3 sq meter 10/29/2023 8:38 AM [facility] Comment:eGFR calculated with 2020 CKD-EPI equation. Vegetarian diet, extremely high or low muscle mass, and may affect results. Cystatin C with Glomerular Filtration Rate is a suitable alternative for these patients. ANION GAP 12 8 - 16 mmol/L 10/29/2023 8:38 AM WELDER [facility] Blood Collection / Unknown 10/29/2023 3:20 AM WELDER 10/29/2023 7:59 AM WELDER Erik Chairez MD CHEMISTRY ORDERABLES Final Resul t [facility] CLIA# [id number] [place] [address] documented in this encounter Visit Diagnoses Not on filedocumented in this encounter Additional Health Concerns Infection Onset Date Last Indicated Resolved Time CRE-CP Comment:10/09/23 Klebsiella pneumoniae, Sputum 10/09/2023 10/09/2023 05/28/2024 2:37 PM C DT 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
--- OUTSIDE RECORDS SUMMARY | 2024-12-31 14:52 | XMS_ITS | Clinical Summary ---
Author Organization [facility] Address [address] [place] [address] Phone Care Team Providers Care Direct Support Staff Member Name Role Phone Unavailable Primary Care Provider Unavailabl e Social History Tobacco Use Types Packs/Day Years Used Date Smoking Tobacco: Never Assessed Sex and Gender Information Value Date Recorded Sex Assigned at Not on file Legal Sex Male 9:18 AM TECHNOLOGY SALES REPRESENTATIVE Gender Identity Not on file Sexual Orientation Not on file Plan of Treatment Health Maintenance Due Date Last Done Comments DTAP/TDAP/TD VACCINES (1 - Tdap) 02/21/1959 PNEUMOCOCCAL VACCINE 50+ YEARS (1 of 1 - PCV) 02/21/19 90 ZOSTER VACCINE (1 of 2) 02/21/1990 RSV VACCINE (60+ or ) (1 - 1-dose 75+ series) 02/21/2015 INFLUENZA VACCINE (#1) 2024 Additional Health Concerns Infection Onset Date Last Indicated 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
--- OUTSIDE RECORDS SUMMARY | 2024-12-31 14:52 | XMS_ITS | Encounter Summary ---
Author Organization [facility] Address [address] [place] [address] Care Team Providers Care Laceworker Name Role Phone Unavailable Primary Care Provider Unavailabl e Encounter Details Date Type Department Care Team (Late st Contact Info) Description 10/17/2023 Lab Requisition [facility] Laboratory Services [address] [place] [address] [place] [address] [place] [address] Social History Tobacco Use Types Packs/Day Years Used Date Smoking Tobacco: Never Assessed Sex and Gender Information Value Date Recorded Sex Assigned at Not on file Legal Sex Male 9:18 AM PICKLE CUTTER Gender Identity Not on file Sexual Orientation Not on file documented as of this encounter Plan of Treatment Not on file documented as of this encounter Procedures Procedure Name Priority Date/Time Associated Diagnosis Comments CBC WITH DIFFERENTIAL Routine 10/17/2023 2:15 AM PICKLE CUTTER MAGNESIUM LEVEL Routine 10/17/2023 2:15 AM PICKLE CUTTER RENAL FUNCTION PANEL Routine 10/17/2023 2:15 AM PICKLE CUTTER documented in this encounter Results * MAGNESIUM LEVEL (10/17/2023 2:15 AM PICKLE CUTTER) MAGNESIUM 2.3 1.6 - 2.6 mg/dL 10/17/2023 9:56 AM PICKLE CUTTER [facility] Blood Collection / Unknown 10/17/2023 2:15 AM PICKLE CUTTER 10/17/2023 9:00 AM PICKLE CUTTER Erik Chairez MD CHEMISTRY ORDERABLES Final Resul t [facility] CLIA# [id number] [place] [address] * (ABNORMAL) CBC WITH DIFFERENTIAL (10/17/2023 2:15 AM PICKLE CUTTER) WBC 6.7 4.5 - 10.5 K/uL 10/17/2023 9:34 AM PICKLE CUTTER [facility] RBC 3.73(L) 4.50 - 5.40 M/uL 10/17/2023 9:34 AM PICKLE CUTTER [facility] HEMOGLOBIN 11.1(L) 13.6 - 16.5 g/dL 10/17/2023 9:34 AM PICKLE CUTTER [facility] HEMATOCRIT 35.0(L) 40.0 - 48.0 % 10/17/2023 9:34 AM PICKLE CUTTER [facility] MCV 93.8 82.0 - 99.0 fL 10/17/2023 9:34 AM PICKLE CUTTER [facility] MCH 29.8 27.8 - 34.5 pg 10/17/2023 9:34 AM PICKLE CUTTER [facility] MCHC 31.8(L) 32.5 - 35.5 g/dL 10/17/2023 9:34 AM PICKLE CUTTER [facility] RDW 17.4(H) 11.5 - 14.5 % 10/17/2023 9:34 AM PICKLE CUTTER [facility] PLATELETS 214 160 - 420 K/uL 10/17/2023 9:34 AM PICKLE CUTTER [facility] MPV 9.5 8.7 - 12.7 fL 10/17/2023 9:34 AM PICKLE CUTTER [facility] NEUTROPHILS 50 % 10/17/2023 9:34 AM PICKLE CUTTER [facility] LYMPHOCYTES 28 % 10/17/2023 9:34 AM PICKLE CUTTER [facility] MONOCYTES 8 % 10/17/2023 9:34 AM PICKLE CUTTER [facility] EOSINOPHILS 13 % 10/17/2023 9:34 AM PICKLE CUTTER [facility] BASOPHILS 0 % 10/17/2023 9:34 AM PICKLE CUTTER [facility] NEUTROPHIL ABSOLUTE 3.40 1.90 - 7.00 K/uL 10/17/2023 9:34 AM PICKLE CUTTER [facility] LYMPHOCYTE ABSOLUTE 1.90 0.70 - 4.50 K/uL 10/17/2023 9:34 AM PICKLE CUTTER [facility] MONOCYTE ABSOLUTE 0.50 0.10 - 1.30 K/uL 10/17/2023 9:34 AM PICKLE CUTTER [facility] EOSINOPHIL ABSOLUTE 0.90(H) 0.00 - 0.70 K/uL 10/17/2023 9:34 AM PICKLE CUTTER [facility] BASOPHILS ABSOLUTE 0.00 0.00 - 0.20 K/uL 10/17/2023 9:34 AM PICKLE CUTTER [facility] Blood Collection / Unknown 10/17/2023 2:15 AM PICKLE CUTTER 10/17/2023 9:00 AM PICKLE CUTTER us Erik Chairez MD HEMATOLOGY ORDERABLES Final Resu lt [facility] CLIA# [id number] [place] [address] * (ABNORMAL) RENAL FUNCTION PANEL (10/17/2023 2:15 AM PICKLE CUTTER) SODIUM 137 136 - 145 mmol/L 10/17/2023 9:56 AM [facility] [employer] [facility] POTASSIUM 4.0 3.4 - 5.1 mmol/L 10/17/2023 9:56 AM [facility] CHLORIDE 99 98 - 107 mmol/L 10/17/2023 9:56 AM [facility] [employer] [facility] CO2 23 22 - 29 mmol/L 10/17/2023 9:56 AM [facility] [employer] [facility] CALCIUM 9.2 8.6 - 10.4 mg/dL 10/17/2023 9:56 AM [facility] [employer] [facility] BUN 42(H) 6 - 20 mg/dL 10/17/2023 9:56 AM [facility] CREATININE 1.00 0.67 - 1.17 mg/dL 10/17/2023 9:56 AM [facility] Comment:The GFR result is no t clinically significant on patients <18 or >70 years of age. GLUCOSE 72(L) 74 - 99 mg/dL 10/17/2023 9:56 AM [facility] ALBUMIN 3.2(L) 3.5 - 5.2 g/dL 10/17/2023 9:56 AM [facility] PHOSPHORUS 2.9 2.5 - 4.5 mg/dL 10/17/2023 9:56 AM [facility] GFR >60 mL/min/1.7 3 sq meter 10/17/2023 9:56 AM [facility] Comment:eGFR calculated with 2020 CKD-EPI equation. Vegetarian diet, extremely high or low muscle mass, and may affect results. Cystatin C with Glomerular Filtration Rate is a suitable alternative for these patients. 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
--- OUTSIDE RECORDS SUMMARY | 2024-12-31 14:52 | XMS_ITS | Encounter Summary ---
Author Organization [facility] Address [address] [place] [address] Care Team Providers Care International Account Representative Name Role Phone Unavailable Primary Care Provider Unavailabl e Encounter Details Date Type Department Care Team (Late st Contact Info) Description 10/23/2023 Lab Requisition [facility] Laboratory Services [address] [place] [address] [place] [address] [place] [address] Social History Tobacco Use Types Packs/Day Years Used Date Smoking Tobacco: Never Assessed Sex and Gender Information Value Date Recorded Sex Assigned at Not on file Legal Sex Male 9:18 AM FARM LOAN REPRESENTATIVE Gender Identity Not on file Sexual Orientation Not on file documented as of this encounter Plan of Treatment Not on file documented as of this encounter Procedures Procedure Name Priority Date/Time Associated Diagnosis Comments CBC WITH DIFFERENTIAL Routine 10/23/2023 2:45 AM FARM LOAN REPRESENTATIVE BASIC METABOLIC PANEL Routine 10/23/2023 2:45 AM FARM LOAN REPRESENTATIVE documented in this encounter Results * (ABNORMAL) CBC WITH DIFFERENTIAL (10/23/2023 2:45 AM FARM LOAN REPRESENTATIVE) WBC 12.7(H) 4.5 - 10.5 K/uL 10/23/2023 11:15 AM FARM LOAN REPRESENTATIVE [facility] SERVICES - [facility] RBC 4.12(L) 4.50 - 5.40 M/uL 10/23/2023 11:15 AM FARM LOAN REPRESENTATIVE [facility]ORY [facility] - [facility] HEMOGLOBIN 12.2(L) 13.6 - 16.5 g/dL 10/23/2023 11:15 AM FARM LOAN REPRESENTATIVE [facility] LABORATORY SERVICES [facility] HEMATOCRIT 38.7(L) 40.0 - 48.0 % 10/23/2023 11:15 AM FARM LOAN REPRESENTATIVE [facility]OR[facility] SERVICES - [facility] MCV 94.0 82.0 - 99.0 fL 10/23/2023 11:15 AM FARM LOAN REPRESENTATIVE [facility]ORATORY SERVICES [facility] MCH 29.7 27.8 - 34.5 pg 10/23/2023 11:15 AM FARM LOAN REPRESENTATIVE [facility] LABORATORY SERVICES [facility] MCHC 31.6(L) 32.5 - 35.5 g/dL 10/23/2023 11:15 AM FARM LOAN REPRESENTATIVE [facility]ORATORY SERVICES [facility] RDW 17.3(H) 11.5 - 14.5 % 10/23/2023 11:15 AM FARM LOAN REPRESENTATIVE [facility] LABORATORY SERVICES [facility] PLATELETS 264 160 - 420 K/uL 10/23/2023 11:15 AM FARM LOAN REPRESENTATIVE [facility]ORATORY SERVICES [facility] MPV 9.6 8.7 - 12.7 fL 10/23/2023 11:15 AM FARM LOAN REPRESENTATIVE [facility] LABORATORY SERVICES [facility] NEUTROPHILS 67 % 10/23/2023 11:15 AM FARM LOAN REPRESENTATIVE [facility] LABORATORY SERVICES [facility] LYMPHOCYTES 20 % 10/23/2023 11:15 AM FARM LOAN REPRESENTATIVE [facility]ORATORY SERVICES [facility] MONOCYTES 5 % 10/23/2023 11:15 AM FARM LOAN REPRESENTATIVE [facility]ORATORY SERVICES [facility] EOSINOPHILS 8 % 10/23/2023 11:15 AM FARM LOAN REPRESENTATIVE [facility]ORATORY SERVICES [facility] BASOPHILS 1 % 10/23/2023 11:15 AM FARM LOAN REPRESENTATIVE [facility]ORATORY SERVICES [facility] NEUTROPHIL ABSOLUTE 8.50(H) 1.90 - 7.00 K/uL 10/23/2023 11:15 AM FARM LOAN REPRESENTATIVE [facility]ORATORY SERVICES [facility] LYMPHOCYTE ABSOLUTE 2.50 0.70 - 4.50 K/uL 10/23/2023 11:15 AM FARM LOAN REPRESENTATIVE [facility]ORATORY SERVICES [facility] MONOCYTE ABSOLUTE 0.60 0.10 - 1.30 K/uL 10/23/2023 11:15 AM FARM LOAN REPRESENTATIVE [facility]ORATORY SERVICES [facility] EOSINOPHIL ABSOLUTE 1.00(H) 0.00 - 0.70 K/uL 10/23/2023 11:15 AM FARM LOAN REPRESENTATIVE [facility]ORAT[facility] SERVICES [facility] BASOPHILS ABSOLUTE 0.10 0.00 - 0.20 K/uL 10/23/2023 11:15 AM [facility] Blood Collection / Unknown 10/23/2023 2:45 AM FARM LOAN REPRESENTATIVE 10/23/2023 10:44 AM FARM LOAN REPRESENTATIVE Erik Chairez MD HEMATOLOGY ORDERABLES Final Resu lt [facility] CLIA# [id number] [address] [place] [address] * (ABNORMAL) BASIC METABOLIC PANEL (10/23/2023 2:45 AM FARM LOAN REPRESENTATIVE) SODIUM 139 136 - 145 mmol/L 10/23/2023 11:42 AM [facility] POTASSIUM 4.5 3.4 - 5.1 mmol/L 10/23/2023 11:42 AM [facility] CHLORIDE 100 98 - 107 mmol/L 10/23/2023 11:42 AM [facility] CO2 24 22 - 29 mmol/L 10/23/2023 11:42 AM [facility] CALCIUM 9.6 8.6 - 10.4 mg/dL 10/23/2023 11:42 AM [facility] BUN 36(H) 6 - 20 mg/dL 10/23/2023 11:42 AM [facility] CREATININE 0.95 0.67 - 1.17 mg/dL 10/23/2023 11:42 AM [facility] Comment:The GFR result is no t clinically significant on patients <18 or >70 years of age. GLUCOSE 86 74 - 99 mg/dL 10/23/2023 11:42 AM [facility] GFR >60 mL/min/1.7 3 sq meter 10/23/2023 11:42 AM [facility] Comment:eGFR calculated with 2020 CKD-EPI equation. Vegetarian diet, extremely high or low muscle mass, and may affect results. Cystatin C with Glomerular Filtration Rate is a suitable alternative for these patients. ANION GAP 15 8 - 16 mmol/L 10/23/2023 11:42 AM FARM LOAN REPRESENTATIVE [facility] SERVICES [facility] Blood Collection / Unknown 10/23/2023 2:45 AM FARM LOAN REPRESENTATIVE 10/23/2023 10:44 AM FARM LOAN REPRESENTATIVE Erik Chairez MD CHEMISTRY ORDERABLES Final Resul t [facility] SERVICES [facility] CLIA# [id number] [address] [place] [address] documented in this encounter Visit Diagnoses Not on filedocumented in this encounter Additional Health Concerns Infection Onset Date Last Indicated Resolved Time CRE-CP Comment:10/09/23 Klebsiella pneumoniae, Sputum 10/09/2023 10/09/2023 05/28/2024 2:37 PM C DT 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
--- OUTSIDE RECORDS SUMMARY | 2024-12-31 14:52 | XMS_ITS | Continuity of Care Document ---
Author Organization [facility] Address [address] [place] [address] [place] [address] Phone Care Team Providers Care Business Development Executive Name Role Phone Karsten Mason MD Unavailable Unavailable Procedures Procedure Date Office/outpatient Visit, [facility] Advance Directives Directive Yes / No Effective Date File Name No Information Encounters Encounter Description Practice Location Reason(s) For Visit Diagnoses Date Provider Providers Copied on Encounter Office/outpat ient Visit, [facility], [id number] [place] [address] [address], [place], [place], [id number], [place] tel:[phone] [facility] No Information [phone] Isabella Shelley. [address] [facility], [place], [place], [id number], [place]. tel:[phone] Family History Family Member Type Diagnosis Age At Onset No Information Payers Payer name Insurance type Covered libertarian ID Authoriza tion(s) Medicare [facility] [id number] Social History Type Description Quantity Date Captured [...]
--- OUTSIDE RECORDS SUMMARY | 2024-12-31 14:52 | XMS_ITS | Referral Summary ---
Author Organization [facility] Address [address] [place] [address] Care Team Providers Care Spout Worker Name Role Phone Demond Stark MD Primary Care Provider Encounters Date Type Department Care Team Description 12/21/2024 Results Follow-Up [facility] Cardiology [address] [place] [address] [address] [place] [address] Mando Dumont MD 12/17/2024 2:00 PM CDT Ancillary Procedure [facility] Cardiology [address] [place] [address] [address] [place] [address] Persistent atrial fibrillation (HCC) 11/09/2024 Telephone [facility] Cardiology [address] [place] [address] [address] [place] [address] Mando Dumont MD 11/05/2024 Telephone [facility] Cardiology [address] [place] [address] [address] [place] [address] Mando Dumont MD cardiac clearance; samples 10/05/2024 10:45 AM COPER HAND Office Visit [facility] E[facility] Specialists - [facility] [address] [facility] [address] [place] [address] Laura Oakes, Dysfunction of right eustachian tube (Primary Dx) from Last 3 Months Allergies Active Allergy Reactions Criticality Noted Date Comments Diphenhydramine Hallucinations Medium 11/27/2023 Was not able to sleep and made him more anxious Lisinopril Cough Low Reaction: Cough, Pravastatin Muscle pain Medium Reaction: Muscular Pain, Quetiapine Other (See comments) Low 06/05/2024 Hallucinations, insomnia Simvastatin Muscle pain Medium Reaction: Muscular Pain, Zykwcss-Onq-Rfb Reductase Inhibitors Muscle pain,Other (See comments) Medium 10/03/2015 Pt reports leg weakness/heavine ss when taking zocor. 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 Bradycardia 08/07/2017 Assessment & Plan (08/07/2017 5:58 PM COPER HAND): Asymptomatic bradycardia, on low-dose metoprolol which may eventually need to be reduced or discontinued. Traumatic subdural hematoma of neuraxis 10/15/19 17 Overview (12/28/2016): Traumatic subdural hematoma without loss of consciousness, sequela Statin intolerance 10/15/2016 Overview (12/28/2016): Statin intolerance Essential hypertension 07/20/2013 Overview (12/28/2016): Hypertension Assessment & Plan (08/07/2017 5:57 PM COPER HAND): Hypertension is not under good control; reviewing [...] HYPERLIPIDEMIA Assessment & Plan (08/07/2017 6:03 PM COPER HAND): Has refued further attempts at statin therapy. History of coronary artery bypass surgery 2009 Overview (12/26/2016): AORTOCORONARY BYPASS Coronary arteriosclerosis in [place] artery 12/20 Overview (08/07/2017): CRNRY ATHRSCL NATVE VSSL 2009: Non STEMI and CABG x3 (HOBSON to the LAD, sequential RA to OM and D1) Assessment & Plan (08/07/2017 6:00 PM COPER HAND): 2009: Non STEMI and CABG x3 (HOBSON [...] 03/04/2018 Assessment & Plan (08/07/2017 5:58 PM COPER HAND): Patient is going to have knee surgery soon and needs preoperative clearance. Coronary artery disease appears stable. Low risk for cardiac event with proposed surgery. 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/2009 03/25/2023 Overview (12/28/2016): SUBENDO INFARCT, SUBSEQ Immunizations Immunization Administration Dates Next Due Influenza, [...] on file Legal Sex Male 8:49 AM COPER HAND Gender Identity Not on file Sexual Orientation Not on file Last Filed Vital Signs Vital Sign Reading Time Taken Comments Blood Pressure 160/88 09/22/2024 1:04 PM COPER HAND Pulse 83 09/22/2024 1:04 PM COPER HAND Temperature 36.3 C (97.4 F) 09/22/2024 1:04 PM COPER HAND Respiratory Rate 18 09/22/2024 1:04 PM COPER HAND Oxygen Saturation 97% 09/22/2024 1:04 PM COPER HAND Inhaled Oxygen Concentration - - Weight 97.5 kg (214 lb 15.2 oz) 09/22/2024 9:41 AM COPER HAND Height 182.9 cm (6') 09/22/2024 9:41 AM COPER HAND Body Mass Index 29.15 09/22/2024 9:41 AM COPER HAND Plan of Treatment Not on file Medical Devices Implanted Type Area Staff Radiographer Device Identifier Shelf Expiration Date Model / Serial / Lot Tailored [employer] 1.32mm 4.8mm Modify Ear T Tube Ventilation Ultrasil Sterile Blue [id number] - [id number] Implanted:Qty: 1 on 09/22/2024 by Laura Oakes DO at [facility] Right: Ear [employer] 07/13/2034 [id number] / / [id number] Procedures Procedure Name Priority Date/Time Associated Diagnosis Comments TRANSTHORACIC ECHO (TTE) COMPLETE W DOPPLER/CF WO CONTRAST Routine 12/17/2024 2:57 PM CDT Persistent atrial fibrillation (HCC) from Last 3 Months Results * TRANSTHORACIC ECHO (TTE) COMPLETE W DOPPLER/CF WO CONTRAST (12/17/2024 2:57 PM CDT) LV EF 45-50 % CONS SCIMAGE Anatomical Region Laterality Modality Ultrasound 12/17/2024 2:11 PM CDT Narrative 12/17/2024 4:20 PM CDT [facility] Cardiology [address], [place] [address] [address] [facility] [address], [place] [address] P:[phone] P:[phone] Echocardiographic Report Patient Name: OMAR KIMBALL L : 1940 Study Date: 12/17/2024 2:11:41 PM Gender: M Tech: [facility] Location: [facility] Provider: MANDO DUMONT Height(Cm): 183 BSA: 2.22 Weight(Kg): 97.1 Heart Rate: 85 BP: 160 / 88 Quality: Good Order Provider: MANDO DUMONT PROCEDURES: Echocardiographic Report: Transthoracic echocardiogram with [...] FINDINGS: Interpretation Site: Exam was interpreted at [facility]. Left Ventricle: Normal left ventricular size. [...] Procedure Note Koki Jimenez MD - 12/17/2024 [facility] Cardiology [address] [facility] [address] [address] [address] [facility] [address] [address] P:[phone] P:[phone] Echocardiographic Report Patient Name: OMAR KIMBALL L : 1940 Study Date: 12/17/2024 2:11:41 PM Gender: M Tech: [facility] Location: [place] Ref Provider: MANDO DUMONT Height(Cm): 183 BSA: 2.22 Weight(Kg): 97.1 Heart Rate: 85 BP: 160 / 88 Quality: Good Order Provider: MANDO DUMONT PROCEDURES: Echocardiographic Report: Transthoracic echocardiogram with [...] FINDINGS: Interpretation Site: Exam was interpreted at [facility]. Left Ventricle: Normal left ventricular size. [...] Koki Jimenez MD 12/17/2024 4:20:12 PM CDT Mando Dumont MD CV ECHO PROCEDURES Final Result from Last 3 Months Insurance MEDICARE MEDICARE [facility] MEDICARE SUPPLEMENT Member Subscriber Plan / Payer (Ef fective 2006-Present) Name:Omar Kimball Relation to Subscriber:Self Name:Omar Kimball Payer ID:[id number] Type:COMMERCIAL Address: [address] [place] [id number] Care Teams Spout Worker Relationship Specialty Start Date End Date Demond Stark MD PCP - General 07/23/11
--- OUTSIDE RECORDS SUMMARY | 2024-12-31 14:52 | XMS_ITS | Encounter Summary ---
Author Organization [facility] Address [address] [place] [address] Care Team Providers Care Production Line Assembler Name Role Phone Unavailable Primary Care Provider Unavailabl e Encounter Details Date Type Department Care Team (Late st Contact Info) Description 10/12/2023 Lab Requisition [facility] Services [address] [place] [address] [place] [address] [place] [address] Social History Tobacco Use Types Packs/Day Years Used Date Smoking Tobacco: Never Assessed Sex and Gender Information Value Date Recorded Sex Assigned at Not on file Legal Sex Male 9:18 AM ART PREPARATOR Gender Identity Not on file Sexual Orientation Not on file documented as of this encounter Plan of Treatment Not on file documented as of this encounter Procedures Procedure Name Priority Date/Time Associated Diagnosis Comments MAGNESIUM LEVEL Routine 10/12/2023 4:00 AM ART PREPARATOR RENAL FUNCTION PANEL Routine 10/12/2023 4:00 AM ART PREPARATOR documented in this encounter Results * MAGNESIUM LEVEL (10/12/2023 4:00 AM ART PREPARATOR) MAGNESIUM 2.3 1.6 - 2.6 mg/dL 10/12/2023 6:02 AM ART PREPARATOR [facility] [employer] [facility] Blood Collection / Unknown 10/12/2023 4:00 AM ART PREPARATOR 10/12/2023 5:07 AM ART PREPARATOR us Erik Chairez MD CHEMISTRY ORDERABLES [id number] [address] [place] [address] * (ABNORMAL) RENAL FUNCTION PANEL (10/12/2023 4:00 AM ART PREPARATOR) SODIUM 139 136 - 145 mmol/L 10/12/2023 6:02 AM [facility] POTASSIUM 4.2 3.4 - 5.1 mmol/L 10/12/2023 6:02 AM [facility] CHLORIDE 102 98 - 107 mmol/L 10/12/2023 6:02 AM [facility] CO2 24 22 - 29 mmol/L 10/12/2023 6:02 AM [facility] CALCIUM 9.5 8.6 - 10.4 mg/dL 10/12/2023 6:02 AM [facility] BUN 43(H) 6 - 20 mg/dL 10/12/2023 6:02 AM [facility] CREATININE 1.20(H) 0.67 - 1.17 mg/dL 10/12/2023 6:02 AM [facility] Comment:The GFR result is no t clinically significant on patients <18 or >70 years of age. GLUCOSE 94 74 - 99 mg/dL 10/12/2023 6:02 AM [facility] ALBUMIN 3.4(L) 3.5 - 5.2 g/dL 10/12/2023 6:02 AM [facility] PHOSPHORUS 4.2 2.5 - 4.5 mg/dL 10/12/2023 6:02 AM [facility] GFR 60 mL/min/1.7 3 sq meter 10/12/2023 6:02 AM [facility] Comment:eGFR calculated with 2020 CKD-EPI equation. Vegetarian diet, extremely high or low muscle mass, and may affect results. Cystatin C with Glomerular Filtration Rate is a suitable alternative for these patients. ANION GAP 13 8 - 16 mmol/L 10/12/2023 6:02 AM [facility] Blood Collection / Unknown 10/12/2023 4:00 AM ART PREPARATOR 10/12/2023 5:07 AM ART PREPARATOR Erik Chairez MD CHEMISTRY ORDERABLES Final Resul t [facility] CLIA# [id number] [address] [place] [address] documented in this encounter Visit Diagnoses Not on filedocumented in this encounter Additional Health Concerns Infection Onset Date Last Indicated Resolved Time CRE-CP Comment:10/09/23 Klebsiella pneumoniae, Sputum 10/09/2023 10/09/2023 05/28/2024 2:37 PM C DT 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
--- OUTSIDE RECORDS SUMMARY | 2024-12-31 14:52 | XMS_ITS | Encounter Summary ---
Author Organization [facility] Address [address] [place] [address] Care Team Providers Care Local Superintendent Name Role Phone Unavailable Primary Care Provider Unavailabl e Encounter Details Date Type Department Care Team (Late st Contact Info) Description 11/07/2023 Lab Requisition [facility] Laboratory Services [address] [place] [address] [place] [address] [place] [address] Social History Tobacco Use Types Packs/Day Years Used Date Smoking Tobacco: Never Assessed Sex and Gender Information Value Date Recorded Sex Assigned at Not on file Legal Sex Male 9:18 AM WAITANGI TRIBUNAL MEMBER Gender Identity Not on file Sexual Orientation Not on file documented as of this encounter Plan of Treatment Not on file documented as of this encounter Procedures Procedure Name Priority Date/Time Associated Diagnosis Comments CBC WITH DIFFERENTIAL Routine 11/07/2023 4:30 AM WAITANGI TRIBUNAL MEMBER BASIC METABOLIC PANEL Routine 11/07/2023 4:30 AM WAITANGI TRIBUNAL MEMBER documented in this encounter Results * (ABNORMAL) CBC WITH DIFFERENTIAL (11/07/2023 4:30 AM WAITANGI TRIBUNAL MEMBER) WBC 9.4 4.5 - 10.5 K/uL 11/07/2023 8:10 AM WAITANGI TRIBUNAL MEMBER [facility] RBC 4.06(L) 4.50 - 5.40 M/uL 11/07/2023 8:10 AM WAITANGI TRIBUNAL MEMBER [facility] [place] [facility] HEMOGLOBIN 11.9(L) 13.6 - 16.5 g/dL 11/07/2023 8:10 AM WAITANGI TRIBUNAL MEMBER [facility] [place] [facility] HEMATOCRIT 37.1(L) 40.0 - 48.0 % 11/07/2023 8:10 AM WAITANGI TRIBUNAL MEMBER [facility] MCV 91.5 82.0 - 99.0 fL 11/07/2023 8:10 AM WAITANGI TRIBUNAL MEMBER [facility] MCH 29.4 27.8 - 34.5 pg 11/07/2023 8:10 AM WAITANGI TRIBUNAL MEMBER [facility] MCHC 32.1(L) 32.5 - 35.5 g/dL 11/07/2023 8:10 AM WAITANGI TRIBUNAL MEMBER [facility] RDW 16.9(H) 11.5 - 14.5 % 11/07/2023 8:10 AM WAITANGI TRIBUNAL MEMBER [facility] PLATELETS 270 160 - 420 K/uL 11/07/2023 8:10 AM WAITANGI TRIBUNAL MEMBER [facility] MPV 10.0 8.7 - 12.7 fL 11/07/2023 8:10 AM WAITANGI TRIBUNAL MEMBER [facility] NEUTROPHILS 61 % 11/07/2023 8:10 AM WAITANGI TRIBUNAL MEMBER [facility] LYMPHOCYTES 21 % 11/07/2023 8:10 AM WAITANGI TRIBUNAL MEMBER [facility] MONOCYTES 6 % 11/07/2023 8:10 AM WAITANGI TRIBUNAL MEMBER [facility] EOSINOPHILS 11 % 11/07/2023 8:10 AM WAITANGI TRIBUNAL MEMBER [facility] BASOPHILS 1 % 11/07/2023 8:10 AM WAITANGI TRIBUNAL MEMBER [facility] NEUTROPHIL ABSOLUTE 5.70 1.90 - 7.00 K/uL 11/07/2023 8:10 AM WAITANGI TRIBUNAL MEMBER [facility] LYMPHOCYTE ABSOLUTE 2.00 0.70 - 4.50 K/uL 11/07/2023 8:10 AM WAITANGI TRIBUNAL MEMBER [facility] MONOCYTE ABSOLUTE 0.60 0.10 - 1.30 K/uL 11/07/2023 8:10 AM WAITANGI TRIBUNAL MEMBER [facility] EOSINOPHIL ABSOLUTE 1.00(H) 0.00 - 0.70 K/uL 11/07/2023 8:10 AM WAITANGI TRIBUNAL MEMBER [facility] BASOPHILS ABSOLUTE 0.10 0.00 - 0.20 K/uL 11/07/2023 8:10 AM [facility] Blood 11/07/2023 4:30 AM WAITANGI TRIBUNAL MEMBER 11/07/2023 8:06 AM WAITANGI TRIBUNAL MEMBER us Erik Chairez MD HEMATOLOGY ORDERABLES Final Resu lt [facility] CLIA# [id number] [place] [address] * (ABNORMAL) BASIC METABOLIC PANEL (11/07/2023 4:30 AM WAITANGI TRIBUNAL MEMBER) SODIUM 137 136 - 145 mmol/L 11/07/2023 8:41 AM [facility] POTASSIUM 4.2 3.4 - 5.1 mmol/L 11/07/2023 8:41 AM [facility] CHLORIDE 100 98 - 107 mmol/L 11/07/2023 8:41 AM [facility] CO2 22 22 - 29 mmol/L 11/07/2023 8:41 AM [facility] CALCIUM 9.9 8.6 - 10.4 mg/dL 11/07/2023 8:41 AM [facility] BUN 41(H) 6 - 20 mg/dL 11/07/2023 8:41 AM [facility] CREATININE 1.03 0.67 - 1.17 mg/dL 11/07/2023 8:41 AM [facility] Comment:The GFR result is no t clinically significant on patients <18 or >70 years of age. GLUCOSE 109(H) 74 - 99 mg/dL 11/07/2023 8:41 AM [facility] GFR >60 mL/min/1.7 3 sq meter 11/07/2023 8:41 AM [facility] Comment:eGFR calculated with 2020 CKD-EPI equation. Vegetarian diet, extremely high or low muscle mass, and may affect results. Cystatin C with Glomerular Filtration Rate is a suitable alternative for these patients. ANION GAP 15 8 - 16 mmol/L 11/07/2023 8:41 AM WAITANGI TRIBUNAL MEMBER [facility] Blood 11/07/2023 4:30 AM WAITANGI TRIBUNAL MEMBER 11/07/2023 8:12 AM WAITANGI TRIBUNAL MEMBER Erik Chairez MD CHEMISTRY ORDERABLES Final Resul t [facility] CLIA# [id number] [place] [address] documented in this encounter Visit Diagnoses Not on filedocumented in this encounter Additional Health Concerns Infection Onset Date Last Indicated Resolved Time CRE-CP Comment:10/09/23 Klebsiella pneumoniae, Sputum 10/09/2023 10/09/2023 05/28/2024 2:37 PM C DT Multi Drug Resistant Organis m (MDRO) Comment:10/09/23 Klebsiella pneumoniae, CRE-CP organism, Sputum 10/09/2023 10/09/2023 MEDICAL CODING MANAGER-CP Comment:10/09/23 Klebsiella pneumoniae, Sputum 10/09/2023 05/28/2024 documented as of this encounter
--- OUTSIDE RECORDS SUMMARY | 2024-12-31 14:52 | XMS_ITS | Encounter Summary ---
Author Organization [facility] Address [address] [place] [address] Care Team Providers Care Athletic Events Scorer Name Role Phone Unavailable Primary Care Provider Unavailabl e Encounter Details Date Type Department Care Team (Late st Contact Info) Description 10/13/2023 Lab Requisition [facility] Laboratory Services [address] [place] [address] [place] [address] [place] [address] Social History Tobacco Use Types Packs/Day Years Used Date Smoking Tobacco: Never Assessed Sex and Gender Information Value Date Recorded Sex Assigned at Not on file Legal Sex Male 9:18 AM CARPENTER MINE Gender Identity Not on file Sexual Orientation Not on file documented as of this encounter Plan of Treatment Not on file documented as of this encounter Procedures Procedure Name Priority Date/Time Associated Diagnosis Comments MAGNESIUM LEVEL Routine 10/13/2023 4:00 AM CARPENTER MINE RENAL FUNCTION PANEL Routine 10/13/2023 4:00 AM CARPENTER MINE documented in this encounter Results * MAGNESIUM LEVEL (10/13/2023 4:00 AM CARPENTER MINE) MAGNESIUM 2.3 1.6 - 2.6 mg/dL 10/13/2023 5:59 AM CARPENTER MINE [facility] [employer] [facility] Blood Collection / Unknown 10/13/2023 4:00 AM CARPENTER MINE 10/13/2023 5:20 AM CARPENTER MINE us Erik Chairez MD CHEMISTRY ORDERABLES Final Resul t [id number] [place] [address] * (ABNORMAL) RENAL FUNCTION PANEL (10/13/2023 4:00 AM CARPENTER MINE) SODIUM 138 136 - 145 mmol/L 10/13/2023 5:58 AM [facility] POTASSIUM 4.5 3.4 - 5.1 mmol/L 10/13/2023 5:58 AM [facility] CHLORIDE 100 98 - 107 mmol/L 10/13/2023 5:58 AM [facility] CO2 25 22 - 29 mmol/L 10/13/2023 5:58 AM [facility] CALCIUM 9.6 8.6 - 10.4 mg/dL 10/13/2023 5:58 AM [facility] BUN 39(H) 6 - 20 mg/dL 10/13/2023 5:58 AM [facility] CREATININE 1.09 0.67 - 1.17 mg/dL 10/13/2023 5:58 AM [facility] Comment:The GFR result is no t clinically significant on patients <18 or >70 years of age. GLUCOSE 100(H) 74 - 99 mg/dL 10/13/2023 5:58 AM [facility] ALBUMIN 3.5 3.5 - 5.2 g/dL 10/13/2023 5:58 AM [facility] PHOSPHORUS 4.8(H) 2.5 - 4.5 mg/dL 10/13/2023 5:58 AM [facility] GFR >60 mL/min/1.7 3 sq meter 10/13/2023 5:58 AM [facility] Comment:eGFR calculated with 2020 CKD-EPI equation. Vegetarian diet, extremely high or low muscle mass, and may affect results. Cystatin C with Glomerular Filtration Rate is a suitable alternative for these patients. ANION GAP 13 8 - 16 mmol/L 10/13/2023 5:58 AM [facility] Blood Collection / Unknown 10/13/2023 4:00 AM CARPENTER MINE 10/13/2023 5:20 AM CARPENTER MINE Erik Chairez MD CHEMISTRY ORDERABLES Final Resul t [facility] CLIA# [id number] [place] [address] documented in this encounter Visit Diagnoses Not on filedocumented in this encounter Additional Health Concerns Infection Onset Date Last Indicated Resolved Time CRE-CP Comment:10/09/23 Klebsiella pneumoniae, Sputum 10/09/2023 10/09/2023 05/28/2024 2:37 PM C DT Multi Drug Resistant Organis m (MDRO) Comment:10/09/23 Klebsiella pneumoniae, CRE-CP organism, Sputum 10/09/2023 10/09/2023 FACT CHECKER-CP Comment:10/09/23 Klebsiella pneumoniae, Sputum 10/09/2023 05/28/2024 documented as of this encounter
--- OUTSIDE RECORDS SUMMARY | 2024-12-31 14:52 | XMS_ITS | Encounter Summary ---
Author Organization [facility] Address [address] [place] [address] Care Team Providers Care Offset Machine Operator Name Role Phone Demond Stark MD Primary Care Provider [phone] Encounter Details Date Type Department Care Team (Late st Contact Info) Description 12/21/2024 Results Follow-Up [facility] Cardiology [address] [place] [address] Mando Luna MD [facility] [place] [id number] Social History Tobacco Use Types Packs/Day Years [...] on file Legal Sex Male 8:49 AM HAT MAKER Gender Identity Not on file Sexual Orientation Not on file documented as of this encounter Plan of Treatment Not on file documented as of this encounter Visit Diagnoses Not on filedocumented in this encounter Care Teams Offset Machine Operator Relationship Specialty Start Date End Date Demond Stark MD PCP - General 07/23/11 documented as of this encounter
== END 2024-12-31 14:15 | disposition home or self-care (01) ==
PROVIDERS: PCP Family Medicine
DX: J69.0 Pneumonitis due to inhalation of food and vomit (principal)
CPT/HCPCS: 71046

== ENCOUNTER 2025-01-06 13:54 | Outpatient (NON) | payer MEDICARE, SELFPAY ==
--- OUTSIDE RECORDS SUMMARY | 2025-01-06 15:10 | XMS_ITS | Clinical Summary ---
[facility] Address [address] [place] [address] Care Team Providers Care Bottle Selector Name Role Phone Demond Stark MD Primary Care Provider [phone] Allergies Active Allergy Reactions Criticality Noted Date Comments Diphenhydramine Hallucinations Medium 11/27/2023 Was not able to sleep and made him more anxious Lisinopril Cough Low Reaction: Cough, Pravastatin Muscle pain Medium Reaction: Muscular Pain, Quetiapine Other (See comments) Low 06/05/2024 Hallucinations, insomnia Simvastatin Muscle pain Medium Reaction: Muscular Pain, Ecvnpoj-Nee-Dru Reductase Inhibitors Muscle pain,Other (See comments) Medium 10/03/2015 Pt reports leg weakness/heavine ss when taking zocor. Medications levothyroxine (SYNTHROID) 112 mcg tablet Take 1 tablet (112 mcg total) by mouth manager mortgage before breakfast Active aspirin 81 mg tablet [...] 08/31/2024 Assessment & Plan (10/05/2024 10:54 AM PHOTO MASK PATTERN GENERATOR): Avoid ear cleaning techniques Avoid water to ears Follow up in 9 months for right ear tube check, earlier with ear drainage Assessment & Plan (08/31/2024 11:40 AM PHOTO MASK PATTERN GENERATOR): Right myringotomy with T-tube placement Risks and [...] 07/09/2024 Assessment & Plan (08/31/2024 11:39 AM PHOTO MASK PATTERN GENERATOR): Right myringotomy with T-tube placement Risks and [...] 08/07/2017 Assessment & Plan (08/07/2017 6:01 PM PHOTO MASK PATTERN GENERATOR): Has had elevated LFTs and a fatty liver. Bradycardia 08/07/2017 Assessment & Plan (08/07/2017 5:58 PM PHOTO MASK PATTERN GENERATOR): Asymptomatic bradycardia, on low-dose metoprolol which may eventually need to be reduced or discontinued. Traumatic subdural hematoma of neuraxis 10/15/19 17 Overview (12/28/2016): Traumatic subdural hematoma without loss of consciousness, sequela Statin intolerance 10/15/2016 Overview (12/28/2016): Statin intolerance Essential hypertension 07/20/2013 Overview (12/28/2016): Hypertension Assessment & Plan (08/07/2017 5:57 PM PHOTO MASK PATTERN GENERATOR): Hypertension is not under good control; reviewing [...] HYPERLIPIDEMIA Assessment & Plan (08/07/2017 6:03 PM PHOTO MASK PATTERN GENERATOR): Has refued further attempts at statin therapy. History of coronary artery bypass surgery 2009 Overview (12/26/2016): AORTOCORONARY BYPASS Coronary arteriosclerosis in jamul artery 12/20 Overview (08/07/2017): CRNRY ATHRSCL NATVE VSSL 2009: Non STEMI and CABG x3 (HOBSON to the LAD, sequential RA to OM and D1) Assessment & Plan (08/07/2017 6:00 PM PHOTO MASK PATTERN GENERATOR): 2009: Non STEMI and CABG x3 (HOBSON [...] 03/04/2018 Assessment & Plan (08/07/2017 5:58 PM PHOTO MASK PATTERN GENERATOR): Patient is going to have knee surgery soon and needs preoperative clearance. Coronary artery disease appears stable. Low risk for cardiac event with proposed surgery. 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/2009 03/25/2023 Overview (12/28/2016): SUBENDO INFARCT, SUBSEQ Encounters Date Type Department Care Team Description 12/21/2024 Results Follow-Up [facility] Cardiology [address] [place] [phone] Mando Dumont MD 12/17/2024 2:00 PM CDT Ancillary Procedure [facility] Cardiology [address] [place] [address] [address] [place] [phone] Persistent atrial fibrillation (HCC) 11/09/2024 Telephone [facility] Cardiology [address] [place] [address] [address] [place] [phone] Mando Dumont MD 11/05/2024 Telephone [facility] Cardiology [address] [place] [phone] Mando Dumont MD cardiac clearance; samples from Last 3 Months Immunizations Immunization Administration [...] on file Legal Sex Male 8:49 AM PHOTO MASK PATTERN GENERATOR Gender Identity Not on file Sexual Orientation Not on file Obstetrics History Last Filed Vital Signs Vital Sign Reading Time Taken Comments Blood Pressure 160/88 09/22/2024 1:04 PM PHOTO MASK PATTERN GENERATOR Pulse 83 09/22/2024 1:04 PM PHOTO MASK PATTERN GENERATOR Temperature 36.3 C (97.4 F) 09/22/2024 1:04 PM PHOTO MASK PATTERN GENERATOR Respiratory Rate 18 09/22/2024 1:04 PM PHOTO MASK PATTERN GENERATOR Oxygen Saturation 97% 09/22/2024 1:04 PM PHOTO MASK PATTERN GENERATOR Inhaled Oxygen Concentration - - Weight 97.5 kg (214 lb 15.2 oz) 09/22/2024 9:41 AM PHOTO MASK PATTERN GENERATOR Height 182.9 cm (6') 09/22/2024 9:41 AM PHOTO MASK PATTERN GENERATOR Body Mass Index 29.15 09/22/2024 9:41 AM PHOTO MASK PATTERN GENERATOR Plan of Treatment Health Maintenance Due Date [...] 09/01/2025 09/01/2024 Medical Devices Implanted Type Area Knot Borer Device Identifier Shelf Expiration Date Model / Serial / Lot [employer] 1.32mm 4.8mm Modify Ear T Tube Ventilation Ultrasil Sterile Blue [id number] - [id number] Implanted:Qty: 1 on 09/22/2024 by Laura Oakes DO at [facility] Right: Ear [employer] 07/13/2034 [id number] / / [id number] Procedures Procedure Name Priority Date/Time Associated Diagnosis Comments TRANSTHORACIC ECHO (TTE) COMPLETE W DOPPLER/CF WO CONTRAST Routine 12/17/2024 2:57 PM CDT Persistent atrial fibrillation (HCC) from Last 3 Months Results * TRANSTHORACIC ECHO (TTE) COMPLETE W DOPPLER/CF WO CONTRAST (12/17/2024 2:57 PM CDT) LV EF 45-50 % CONS SCIMAGE Anatomical Region Laterality Modality Ultrasound 12/17/2024 2:11 PM CDT Narrative 12/17/2024 4:20 PM CDT [facility] Cardiology [address] [facility] [address], [place] [address] [address] [facility] [address], [place] [address] P:[phone] P:[phone] Echocardiographic Report Patient Name: OMAR KIMBALL L : 1940 Study Date: 12/17/2024 2:11:41 PM Gender: M Tech: SCOTTY Location: [place] Ref Provider: MANDO DUMONT Height(Cm): 183 BSA: [...] FINDINGS: Interpretation Site: Exam was interpreted at [facility]. Left Ventricle: Normal left ventricular size. Mild [...] Procedure Note Koki Jimenez MD - 12/17/2024 [facility] Cardiology [address] [facility] [address], [place] [address] [address] [facility] [address], [place] [address] P:[phone] P:[phone] Echocardiographic Report Patient Name: OMAR KIMBALL L : 1940 Study Date: 12/17/2024 2:11:41 PM Gender: M Tech: [facility] Location: [facility] Provider: MANDO DUMONT Height(Cm): 183 BSA: 2.22 [...] FINDINGS: Interpretation Site: Exam was interpreted at [facility]. Left Ventricle: Normal left ventricular size. Mild [...] from Last 3 Months Insurance MEDICARE MEDICARE [facility] MEDICARE SUPPLEMENT Care Teams Bottle Selector Relationship Specialty Start Date End Date Demond Stark MD PCP - General 07/23/11
--- OUTSIDE RECORDS SUMMARY | 2025-01-06 15:10 | XMS_ITS | Encounter Summary ---
Author Organization [facility] Address [address] [place] [address] Care Team Providers Care Medical Coding Manager Name Role Phone Unavailable Primary Care Provider Unavailabl e Encounter Details Date Type Department Care Team (Late st Contact Info) Description 10/23/2023 Lab Requisition [facility] Laboratory Services [id number] [place] [address] [place] [address] [place] [address] Social History Tobacco Use Types Packs/Day Years Used Date Smoking Tobacco: Never Assessed Sex and Gender Information Value Date Recorded Sex Assigned at Not on file Legal Sex Male 9:18 AM TANK STAVE ASSEMBLER Gender Identity Not on file Sexual Orientation Not on file documented as of this encounter Plan of Treatment Not on file documented as of this encounter Procedures Procedure Name Priority Date/Time Associated Diagnosis Comments CBC WITH DIFFERENTIAL Routine 10/23/2023 2:45 AM TANK STAVE ASSEMBLER BASIC METABOLIC PANEL Routine 10/23/2023 2:45 AM TANK STAVE ASSEMBLER documented in this encounter Results * (ABNORMAL) CBC WITH DIFFERENTIAL (10/23/2023 2:45 AM TANK STAVE ASSEMBLER) WBC 12.7(H) 4.5 - 10.5 K/uL 10/23/2023 11:15 AM TANK STAVE ASSEMBLER [facility] - [facility] RBC 4.12(L) 4.50 - 5.40 M/uL 10/23/2023 11:15 AM TANK STAVE ASSEMBLER [facility] - [facility] HEMOGLOBIN 12.2(L) 13.6 - 16.5 g/dL 10/23/2023 11:15 AM TANK STAVE ASSEMBLER [facility] HEMATOCRIT 38.7(L) 40.0 - 48.0 % 10/23/2023 11:15 AM TANK STAVE ASSEMBLER [facility] - [facility] MCV 94.0 82.0 - 99.0 fL 10/23/2023 11:15 AM TANK STAVE ASSEMBLER [facility] MCH 29.7 27.8 - 34.5 pg 10/23/2023 11:15 AM TANK STAVE ASSEMBLER [facility] MCHC 31.6(L) 32.5 - 35.5 g/dL 10/23/2023 11:15 AM TANK STAVE ASSEMBLER [facility] RDW 17.3(H) 11.5 - 14.5 % 10/23/2023 11:15 AM TANK STAVE ASSEMBLER [facility] PLATELETS 264 160 - 420 K/uL 10/23/2023 11:15 AM TANK STAVE ASSEMBLER [facility] MPV 9.6 8.7 - 12.7 fL 10/23/2023 11:15 AM TANK STAVE ASSEMBLER [facility] NEUTROPHILS 67 % 10/23/2023 11:15 AM TANK STAVE ASSEMBLER [facility] LYMPHOCYTES 20 % 10/23/2023 11:15 AM TANK STAVE ASSEMBLER [facility] MONOCYTES 5 % 10/23/2023 11:15 AM TANK STAVE ASSEMBLER [facility] EOSINOPHILS 8 % 10/23/2023 11:15 AM TANK STAVE ASSEMBLER [facility] BASOPHILS 1 % 10/23/2023 11:15 AM TANK STAVE ASSEMBLER [facility] NEUTROPHIL ABSOLUTE 8.50(H) 1.90 - 7.00 K/uL 10/23/2023 11:15 AM TANK STAVE ASSEMBLER [facility] LYMPHOCYTE ABSOLUTE 2.50 0.70 - 4.50 K/uL 10/23/2023 11:15 AM TANK STAVE ASSEMBLER [facility] MONOCYTE ABSOLUTE 0.60 0.10 - 1.30 K/uL 10/23/2023 11:15 AM TANK STAVE ASSEMBLER [facility] EOSINOPHIL ABSOLUTE 1.00(H) 0.00 - 0.70 K/uL 10/23/2023 11:15 AM TANK STAVE ASSEMBLER [facility] BASOPHILS ABSOLUTE 0.10 0.00 - 0.20 K/uL 10/23/2023 11:15 AM [facility] Blood Collection / Unknown 10/23/2023 2:45 AM TANK STAVE ASSEMBLER 10/23/2023 10:44 AM TANK STAVE ASSEMBLER Erik Chairez MD HEMATOLOGY ORDERABLES Final Resu lt [facility] CLIA# [id number] [place] [address] * (ABNORMAL) BASIC METABOLIC PANEL (10/23/2023 2:45 AM TANK STAVE ASSEMBLER) SODIUM 139 136 - 145 mmol/L 10/23/2023 11:42 AM [facility] POTASSIUM 4.5 3.4 - 5.1 mmol/L 10/23/2023 11:42 AM [facility] CHLORIDE 100 98 - 107 mmol/L 10/23/2023 11:42 AM [facility] CO2 24 22 - 29 mmol/L 10/23/2023 11:42 AM [facility] CALCIUM 9.6 8.6 - 10.4 mg/dL 10/23/2023 11:42 AM [facility] BUN 36(H) 6 - 20 mg/dL 10/23/2023 11:42 AM [facility] CREATININE 0.95 0.67 - 1.17 mg/dL 10/23/2023 11:42 AM [facility] Comment:The GFR result is no t clinically significant on patients <18 or >70 years of age. GLUCOSE 86 74 - 99 mg/dL 10/23/2023 11:42 AM [facility] GFR >60 mL/min/1.7 3 sq meter 10/23/2023 11:42 AM [facility] Comment:eGFR calculated with 2020 CKD-EPI equation. Vegetarian diet, extremely high or low muscle mass, and may affect results. Cystatin C with Glomerular Filtration Rate is a suitable alternative for these patients. ANION GAP 15 8 - 16 mmol/L 10/23/2023 11:42 AM TANK STAVE ASSEMBLER [facility] Blood Collection / Unknown 10/23/2023 2:45 AM TANK STAVE ASSEMBLER 10/23/2023 10:44 AM TANK STAVE ASSEMBLER Erik Chairez MD CHEMISTRY ORDERABLES Final Resul t [facility] CLIA# [id number] [address] [place] [address] documented in this encounter Visit Diagnoses Not on filedocumented in this encounter Additional Health Concerns Infection Onset Date Last Indicated Resolved Time CRE-CP Comment:10/09/23 Klebsiella pneumoniae, Sputum 10/09/2023 10/09/2023 05/28/2024 2:37 PM C DT 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
--- OUTSIDE RECORDS SUMMARY | 2025-01-06 15:10 | XMS_ITS | Encounter Summary ---
Author Organization [facility] Address [address] [place] [address] Care Team Providers Care Journeyman Meat Cutter Name Role Phone Unavailable Primary Care Provider Unavailabl e Encounter Details Date Type Department Care Team (Late st Contact Info) Description 10/14/2023 Lab Requisition [facility] Laboratory Services [address] [place] [address] [place] [address] [place] [address] Social History Tobacco Use Types Packs/Day Years Used Date Smoking Tobacco: Never Assessed Sex and Gender Information Value Date Recorded Sex Assigned at Not on file Legal Sex Male 9:18 AM PEDIATRIC GENETICIST Gender Identity Not on file Sexual Orientation Not on file documented as of this encounter Plan of Treatment Not on file documented as of this encounter Procedures Procedure Name Priority Date/Time Associated Diagnosis Comments CBC WITH DIFFERENTIAL Routine 10/14/2023 2:35 AM PEDIATRIC GENETICIST TRIGLYCERIDE Routine 10/14/2023 2:35 AM PEDIATRIC GENETICIST PHOSPHORUS Routine 10/14/2023 2:35 AM PEDIATRIC GENETICIST MAGNESIUM LEVEL Routine 10/14/2023 2:35 AM PEDIATRIC GENETICIST COMPREHENSIVE METABOLIC PANEL Routine 10/14/2023 2:35 AM PEDIATRIC GENETICIST documented in this encounter Results * (ABNORMAL) TRIGLYCERIDE (10/14/2023 2:35 AM PEDIATRIC GENETICIST) TRIGLYCERIDE 161(H) <150 mg/dL 10/14/2023 8:26 AM PEDIATRIC GENETICIST [facility] Blood Collection / Unknown 10/14/2023 2:35 AM PEDIATRIC GENETICIST 10/14/2023 7:22 AM PEDIATRIC GENETICIST Narrative [facility] - 10/14/2023 8:26 AM PEDIATRIC GENETICIST TRIGLYCERIDES mg/dL Normal < 150 Borderline High 150 - 199 High 200 - 499 Very High >= 500 Based on AHA/NCEP Guidelines. us Erik Chairez MD CHEMISTRY ORDERABLES Final Resul t Performing Organization Address City/[facility]/ZIP Co de Phone Number [facility] CLIA# [id number] [place] [address] * PHOSPHORUS (10/14/2023 2:35 AM PEDIATRIC GENETICIST) PHOSPHORUS 3.4 2.5 - 4.5 mg/dL 10/14/2023 8:26 AM PEDIATRIC GENETICIST [facility] Blood Collection / Unknown 10/14/2023 2:35 AM PEDIATRIC GENETICIST 10/14/2023 7:22 AM PEDIATRIC GENETICIST us Erik Chairez MD CHEMISTRY ORDERABLES Final Resul t Performing Organization Address City/[facility] Co de Phone Number [facility] [id number] [place] [address] * MAGNESIUM LEVEL (10/14/2023 2:35 AM PEDIATRIC GENETICIST) MAGNESIUM 2.5 1.6 - 2.6 mg/dL 10/14/2023 8:26 AM PEDIATRIC GENETICIST [facility] [employer] [facility] Blood Collection / Unknown 10/14/2023 2:35 AM PEDIATRIC GENETICIST 10/14/2023 7:22 AM PEDIATRIC GENETICIST us Erik Chairez MD CHEMISTRY ORDERABLES Final Resul t Performing Organization Address City/[facility]/ZIP Co de Phone Number [facility]# [id number] [address] [place] [address] * (ABNORMAL) CBC WITH DIFFERENTIAL (10/14/2023 2:35 AM PEDIATRIC GENETICIST) [facility] WBC 9.2 4.5 - 10.5 K/uL 10/14/2023 8:02 AM [facility] RBC 3.58(L) 4.50 - 5.40 M/uL 10/14/2023 8:02 AM [facility] HEMOGLOBIN 11.0(L) 13.6 - 16.5 g/dL 10/14/2023 8:02 AM [facility] HEMATOCRIT 33.5(L) 40.0 - 48.0 % 10/14/2023 8:02 AM [facility] MCV 93.6 82.0 - 99.0 fL 10/14/2023 8:02 AM [facility] MCH 30.6 27.8 - 34.5 pg 10/14/2023 8:02 AM [facility] [employer] [facility] MCHC 32.7 32.5 - 35.5 g/dL 10/14/2023 8:02 AM [facility] [employer] [facility] RDW 17.7(H) 11.5 - 14.5 % 10/14/2023 8:02 AM [facility] PLATELETS 214 160 - 420 K/uL 10/14/2023 8:02 AM [facility] [employer] [facility] MPV 9.2 8.7 - 12.7 fL 10/14/2023 8:02 AM [facility] [employer] [facility] NEUTROPHILS 58 % 10/14/2023 8:02 AM [facility] LYMPHOCYTES 24 % 10/14/2023 8:02 AM [facility] MONOCYTES 8 % 10/14/2023 8:02 AM PEDIATRIC GENETICIST [facility] EOSINOPHILS 9 % 10/14/2023 8:02 AM [facility] BASOPHILS 0 % 10/14/2023 8:02 AM [facility] NEUTROPHIL ABSOLUTE 5.40 1.90 - 7.00 K/uL 10/14/2023 8:02 AM [facility] [employer] [facility] LYMPHOCYTE ABSOLUTE 2.20 0.70 - 4.50 K/uL 10/14/2023 8:02 AM [facility] MONOCYTE ABSOLUTE 0.70 0.10 - 1.30 K/uL 10/14/2023 8:02 AM [facility] EOSINOPHIL ABSOLUTE 0.90(H) 0.00 - 0.70 K/uL 10/14/2023 8:02 AM [facility] BASOPHILS ABSOLUTE 0.00 0.00 - 0.20 K/uL 10/14/2023 8:02 AM [facility] Blood Collection / Unknown 10/14/2023 2:35 AM PEDIATRIC GENETICIST 10/14/2023 7:22 AM PEDIATRIC GENETICIST Erik Chairez MD HEMATOLOGY ORDERABLES Final Resu lt [facility] CLIA# [id number] [place] [address] * (ABNORMAL) COMPREHENSIVE METABOLIC PANEL (10/14/2023 2:35 AM PEDIATRIC GENETICIST) SODIUM 135(L) 136 - 145 mmol/L 10/14/2023 [...] 0.67 - 1.17 mg/dL 10/14/2023 8:26 AM [facility] [employer] [facility] Comment:The GFR result is no t clinically [...] Blood Collection / Unknown 10/14/2023 2:35 AM PEDIATRIC GENETICIST 10/14/2023 7:22 AM PEDIATRIC GENETICIST us Erik Chairez MD CHEMISTRY ORDERABLES Final Resul t [facility] CLIA# [id number] [address] [place] [address] documented in this encounter Visit Diagnoses Not on filedocumented in this encounter Additional Health Concerns Infection Onset Date Last Indicated Resolved Time CRE-CP Comment:10/09/23 Klebsiella pneumoniae, Sputum 10/09/2023 10/09/2023 05/28/2024 2:37 PM C DT 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
--- OUTSIDE RECORDS SUMMARY | 2025-01-06 15:10 | XMS_ITS | Encounter Summary ---
Author Organization [facility] Address [address] [place] [address] Care Team Providers Care Doctor Of Veterinary Medicine Name Role Phone Demond Stark MD Primary Care Provider [phone] Encounter Details Date Type Department Care Team (Late st Contact Info) Description 10/16/2016 Orders Only [facility] ProviderTaylor MD [address] [place], [place] [id number] Social History Tobacco Use Types Packs/Day Years Used Date Smoking Tobacco: Former Cigarettes Q uit: 09/23/1969 Alcohol Use Standard Drinks/Week Comments Yes 0 (1 standard drink = 0.6 oz pur e alcohol) Sex and Gender Information Value Date Recorded Sex Assigned at Not on file Legal Sex Male 8:49 AM TRIPLE AIR VALVE TESTER Gender Identity Not on file Sexual Orientation [...] on filedocumented in this encounter Care Teams Doctor Of Veterinary Medicine Relationship Specialty Start Date End Date Demond Stark MD PCP - General 07/23/11 documented as of this encounter
--- OUTSIDE RECORDS SUMMARY | 2025-01-06 15:10 | XMS_ITS | Encounter Summary ---
Author Organization [facility] Address [address] [place] [address] Care Team Providers Care Warehouse Distribution Specialist Name Role Phone Unavailable Primary Care Provider Unavailabl e Encounter Details Date Type Department Care Team (Late st Contact Info) Description 10/10/2023 Lab Requisition [facility] Laboratory Services [address] [place] [address] [place] [address] [place] [address] Social History Tobacco Use Types Packs/Day Years Used Date Smoking Tobacco: Never Assessed Sex and Gender Information Value Date Recorded Sex Assigned at Not on file Legal Sex Male 9:18 AM PRINT SHOP HELPER Gender Identity Not on file Sexual Orientation Not on file documented as of this encounter Plan of Treatment Not on file documented as of this encounter Procedures Procedure Name Priority Date/Time Associated Diagnosis Comments CARBAPENEM RESISTANT ORGANISM Routine 10/09/2023 9:30 PM PRINT SHOP HELPER SPUTUM CULTURE WITH GRAM STAIN Routine 10/09/2023 9:30 PM PRINT SHOP HELPER documented in this encounter Results * (ABNORMAL) CARBAPENEM RESISTANT ORGANISM (10/09/2023 9:30 PM PRINT SHOP HELPER) ORGANISM TESTED Klebsiella pneumoniae 10/12/2023 4:25 PM PRINT SHOP HELPER [facility] Carbapenem Resistance Gene Detected(A) Not Detected 10/12/2023 4:25 PM PRINT SHOP HELPER [facility] KPC (carbapenem-re sistance gene) by PCR DETECTED(A) Not Detected 10/12/2023 4:25 PM PRINT SHOP HELPER [facility] Sputum Collection / Unknown 10/09/2023 9:30 PM PRINT SHOP HELPER 10/10/2023 9:54 AM PRINT SHOP HELPER [facility] - 10/12/2023 4:25 PM PRINT SHOP HELPER This isolate is a carbapenem-resistant Organism (DIAPER FOLDER) AND is a carbapenamase-surg tech. If inpatient, place patient in Enhanced Contact Isolation. The [employer] Formula Xpert Carba-R PCR assay detects the presence of KPC, NDM, VIM, OXA- 48, and IMP gene sequences that induce carbapenemase production in gram negative bacteria. This test was performed using an FDA approved screening methodology. Erik Chairez MD MICROBIOLOGY - GENERAL ORDERABLE S Final Result [facility]# [id number] [address] [place] [address] * (ABNORMAL) SPUTUM CULTURE WITH GRAM STAIN (10/09/2023 9:30 PM PRINT SHOP HELPER) CULTURE KLEBSIELLA PNEUMONIAE(A) LUCINA MCG/ML 10/17/2023 10:47 AM PRINT SHOP HELPER [facility] Partly [facility] Comment: This isolate is a Carbapenem-Resistant Organism AND is a carbapenemase surg tech (DIAPER FOLDER-CP). If inpatient, place patient in Enhanced Contact Isolation. Multiple drug resistant organism (MDRO). CULTURE Absent Normal Shahrzad LUCINA MCG/ML 10/17/2023 10:47 AM [facility] Partly [facility] GRAM STAIN Non diagnostic pattern LUCINA MCG/ML 10/17/2023 10:47 AM [facility] GRAM STAIN No WBC observed 10/17/2023 10:47 AM [facility] Partly [facility] Sputum Collection / Unknown 10/09/2023 9:30 PM PRINT SHOP HELPER 10/10/2023 9:54 AM PRINT SHOP HELPER [facility] Partly [facility] - 10/17/2023 10:47 AM PRINT SHOP HELPER Results called to Kelly Suarez RN, Rosalie [...] Edited Result - Final Performing Organization Address City/State/[facility] Co de Phone Number 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
--- OUTSIDE RECORDS SUMMARY | 2025-01-06 15:10 | XMS_ITS | Encounter Summary ---
Author Organization [employer] [facility] Address [address] [place] [address] Care Team Providers Care School Patrol Name Role Phone Unavailable Primary Care Provider Unavailabl e Encounter Details Date Type Department Care Team (Late st Contact Info) Description 10/11/2023 Lab Requisition [facility] Laboratory Services [address] [place] [address] [place] [address] [place] [address] Social History Tobacco Use Types Packs/Day Years Used Date Smoking Tobacco: Never Assessed Sex and Gender Information Value Date Recorded Sex Assigned at Not on file Legal Sex Male 9:18 AM NON CDL DRIVER Gender Identity Not on file Sexual Orientation Not on file documented as of this encounter Plan of Treatment Not on file documented as of this encounter Procedures Procedure Name Priority Date/Time Associated Diagnosis Comments CBC WITH DIFFERENTIAL Routine 10/11/2023 3:30 AM NON CDL DRIVER TRIGLYCERIDE Routine 10/11/2023 3:30 AM NON CDL DRIVER MAGNESIUM LEVEL Routine 10/11/2023 3:30 AM NON CDL DRIVER RENAL FUNCTION PANEL Routine 10/11/2023 3:30 AM NON CDL DRIVER documented in this encounter Results * (ABNORMAL) TRIGLYCERIDE (10/11/2023 3:30 AM NON CDL DRIVER) TRIGLYCERIDE 192(H) <150 mg/dL 10/11/2023 6:28 AM NON CDL DRIVER [facility] Blood 10/11/2023 3:30 AM NON CDL DRIVER 10/11/2023 5:43 AM NON CDL DRIVER Narrative [facility] [employer] [facility] - 10/11/2023 6:28 AM NON CDL DRIVER TRIGLYCERIDES mg/dL Normal < 150 Borderline High 150 - 199 High 200 - 499 Very High >= 500 Based on AHA/NCEP Guidelines. Erik Chairez MD CHEMISTRY ORDERABLES Final Resul t Performing Organization Address City/[facility]/ZIP Co de Phone Number [facility] CLIA# [id number] [place] [address] * MAGNESIUM LEVEL (10/11/2023 3:30 AM NON CDL DRIVER) MAGNESIUM 2.2 1.6 - 2.6 mg/dL 10/11/2023 6:28 AM [facility] Blood 10/11/2023 3:30 AM NON CDL DRIVER 10/11/2023 5:43 AM NON CDL DRIVER Erik Chairez MD CHEMISTRY ORDERABLES Final Resul t Performing Organization Address City/[facility]/ZIP Co de Phone Number [facility] CLIA# [id number] [place] [address] * (ABNORMAL) CBC WITH DIFFERENTIAL (10/11/2023 3:30 AM NON CDL DRIVER) WBC 8.8 4.5 - 10.5 K/uL 10/11/2023 6:05 AM [facility] [employer] [facility] RBC 3.43(L) 4.50 - 5.40 M/uL 10/11/2023 6:05 AM [facility] [employer] [facility] HEMOGLOBIN 10.5(L) 13.6 - 16.5 g/dL 10/11/2023 6:05 AM [facility] HEMATOCRIT 32.7(L) 40.0 - 48.0 % 10/11/2023 6:05 AM [facility] MCV 95.4 82.0 - 99.0 fL 10/11/2023 6:05 AM [facility] MCH 30.7 27.8 - 34.5 pg 10/11/2023 6:05 AM [facility] LABORATORY [facility] MCHC 32.2(L) 32.5 - 35.5 g/dL 10/11/2023 6:05 AM [facility] LABORATORY [facility] RDW 18.7(H) 11.5 - 14.5 % 10/11/2023 6:05 AM [facility] LABORATORY [facility] PLATELETS 218 160 - 420 K/uL 10/11/2023 6:05 AM [facility] LABORATORY [facility] MPV 9.3 8.7 - 12.7 fL 10/11/2023 6:05 AM NON CDL DRIVER [facility] NEUTROPHILS 67 % 10/11/2023 6:05 AM NON CDL DRIVER [facility] LYMPHOCYTES 18 % 10/11/2023 6:05 AM NON CDL DRIVER [facility] MONOCYTES 7 % 10/11/2023 6:05 AM NON CDL DRIVER [facility] EOSINOPHILS 7 % 10/11/2023 6:05 AM [facility] LABORATORY [facility] BASOPHILS 1 % 10/11/2023 6:05 AM NON CDL DRIVER [facility] NEUTROPHIL ABSOLUTE 5.90 1.90 - 7.00 K/uL 10/11/2023 6:05 AM [facility] LABORATORY [facility] LYMPHOCYTE ABSOLUTE 1.60 0.70 - 4.50 K/uL 10/11/2023 6:05 AM [facility] LABORATORY [facility] MONOCYTE ABSOLUTE 0.60 0.10 - 1.30 K/uL 10/11/2023 6:05 AM [facility] LABORATORY [facility] EOSINOPHIL ABSOLUTE 0.60 0.00 - 0.70 K/uL 10/11/2023 6:05 AM NON CDL DRIVER [facility] LABORAT[facility] BASOPHILS ABSOLUTE 0.10 0.00 - 0.20 K/uL 10/11/2023 6:05 AM [facility] LABORATORY [facility] Blood 10/11/2023 3:30 AM NON CDL DRIVER 10/11/2023 5:43 AM NON CDL DRIVER us Erik Chairez MD HEMATOLOGY ORDERABLES Final Resu lt [facility] CLIA# [id number] [address] [place] [address] * (ABNORMAL) RENAL FUNCTION PANEL (10/11/2023 3:30 AM NON CDL DRIVER) SODIUM 145 136 - 145 mmol/L 10/11/2023 6:28 AM [facility] [employer] [facility] POTASSIUM 4.0 3.4 - 5.1 mmol/L 10/11/2023 6:28 AM [facility] CHLORIDE 106 98 - 107 mmol/L 10/11/2023 6:28 AM [facility] CO2 26 22 - 29 mmol/L 10/11/2023 6:28 AM [facility] CALCIUM 9.3 8.6 - 10.4 mg/dL 10/11/2023 6:28 AM [facility] BUN 38(H) 6 - 20 mg/dL 10/11/2023 6:28 AM [facility] CREATININE 1.38(H) 0.67 - 1.17 mg/dL 10/11/2023 6:28 AM [facility] Comment:The GFR result is no t clinically significant on patients <18 or >70 years of age. GLUCOSE 85 74 - 99 mg/dL 10/11/2023 6:28 AM [facility] ALBUMIN 3.4(L) 3.5 - 5.2 g/dL 10/11/2023 6:28 AM [facility] PHOSPHORUS 3.9 2.5 - 4.5 mg/dL 10/11/2023 6:28 AM [facility] GFR 51 mL/min/1.7 3 sq meter 10/11/2023 6:28 AM [facility] Comment:eGFR calculated with 2020 CKD-EPI equation. Vegetarian diet, extremely high or low muscle mass, and may affect results. Cystatin C with Glomerular Filtration Rate is a suitable alternative for these patients. 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
--- OUTSIDE RECORDS SUMMARY | 2025-01-06 15:10 | XMS_ITS | Encounter Summary ---
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
--- OUTSIDE RECORDS SUMMARY | 2025-01-06 15:10 | XMS_ITS | Encounter Summary ---
Author Organization [facility] Address [address] [place] [address] Care Team Providers Care Four Corner Former Machine Operator Name Role Phone Unavailable Primary Care Provider Unavailabl e Encounter Details Date Type Department Care Team (Late st Contact Info) Description 10/12/2023 Lab Requisition [facility] Laboratory Services [address] [place] [address] [place] [address] [place] [address] Social History Tobacco Use Types Packs/Day Years Used Date Smoking Tobacco: Never Assessed Sex and Gender Information Value Date Recorded Sex Assigned at Not on file Legal Sex Male 9:18 AM RECYCLING OPERATIONS MANAGER Gender Identity Not on file Sexual Orientation Not on file documented as of this encounter Plan of Treatment Not on file documented as of this encounter Procedures Procedure Name Priority Date/Time Associated Diagnosis Comments MAGNESIUM LEVEL Routine 10/12/2023 4:00 AM RECYCLING OPERATIONS MANAGER RENAL FUNCTION PANEL Routine 10/12/2023 4:00 AM RECYCLING OPERATIONS MANAGER documented in this encounter Results * MAGNESIUM LEVEL (10/12/2023 4:00 AM RECYCLING OPERATIONS MANAGER) MAGNESIUM 2.3 1.6 - 2.6 mg/dL 10/12/2023 6:02 AM RECYCLING OPERATIONS MANAGER [facility] [email or web address] [facility] Blood Collection / Unknown 10/12/2023 4:00 AM RECYCLING OPERATIONS MANAGER 10/12/2023 5:07 AM RECYCLING OPERATIONS MANAGER us Erik Chairez MD CHEMISTRY ORDERABLES Final [facility]ul t [id number] [address] [place] [address] * (ABNORMAL) RENAL FUNCTION PANEL (10/12/2023 4:00 AM RECYCLING OPERATIONS MANAGER) SODIUM 139 136 - 145 mmol/L 10/12/2023 6:02 AM [facility] POTASSIUM 4.2 3.4 - 5.1 mmol/L 10/12/2023 6:02 AM [facility] CHLORIDE 102 98 - 107 mmol/L 10/12/2023 6:02 AM [facility] CO2 24 22 - 29 mmol/L 10/12/2023 6:02 AM [facility] CALCIUM 9.5 8.6 - 10.4 mg/dL 10/12/2023 6:02 AM [facility] BUN 43(H) 6 - 20 mg/dL 10/12/2023 6:02 AM [facility] CREATININE 1.20(H) 0.67 - 1.17 mg/dL 10/12/2023 6:02 AM [facility] Comment:The GFR result is no t clinically significant on patients <18 or >70 years of age. GLUCOSE 94 74 - 99 mg/dL 10/12/2023 6:02 AM [facility] ALBUMIN 3.4(L) 3.5 - 5.2 g/dL 10/12/2023 6:02 AM [facility] PHOSPHORUS 4.2 2.5 - 4.5 mg/dL 10/12/2023 6:02 AM [facility] GFR 60 mL/min/1.7 3 sq meter 10/12/2023 6:02 AM [facility] Comment:eGFR calculated with 2020 CKD-EPI equation. Vegetarian diet, extremely high or low muscle mass, and may affect results. Cystatin C with Glomerular Filtration Rate is a suitable alternative for these patients. 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
--- OUTSIDE RECORDS SUMMARY | 2025-01-06 15:10 | XMS_ITS | Encounter Summary ---
Author Organization [facility] Address [address] [place] [address] Care Team Providers Care Barbering Instructor Name Role Phone Unavailable Primary Care Provider Unavailabl e Encounter Details Date Type Department Care Team (Late st Contact Info) Description 10/10/2023 Lab Requisition [facility] Laboratory Services [address] [place] [address] [place] [address] [place] [address] Social History Tobacco Use Types Packs/Day Years Used Date Smoking Tobacco: Never Assessed Sex and Gender Information Value Date Recorded Sex Assigned at Not on file Legal Sex Male 9:18 AM WARD ATTENDANT Gender Identity Not on file Sexual Orientation Not on file documented as of this encounter Plan of Treatment Not on file documented as of this encounter Procedures Procedure Name Priority Date/Time Associated Diagnosis Comments CBC WITH DIFFERENTIAL Routine 10/10/2023 3:30 AM WARD ATTENDANT PTT Routine 10/10/2023 3:30 AM WARD ATTENDANT PROTIME-INR Routine 10/10/2023 3:30 AM WARD ATTENDANT PREALBUMIN Routine 10/10/2023 3:30 AM WARD ATTENDANT COMPREHENSIVE METABOLIC PANEL Routine 10/10/2023 3:30 AM WARD ATTENDANT documented in this encounter Results * PTT (10/10/2023 3:30 AM WARD ATTENDANT) PTT 23.4 23.1 - 37.1 seconds 10/10/2023 10:14 AM WARD ATTENDANT [facility] LABORATORY SERVICES [facility] Blood Collection / Unknown 10/10/2023 3:30 AM WARD ATTENDANT 10/10/2023 9:51 AM WARD ATTENDANT Erik Chairez MD HEMATOLOGY ORDERABLES Final Resu lt [facility] CLIA# [id number] [address] [place] [address] * (ABNORMAL) PROTIME-INR (10/10/2023 3:30 AM WARD ATTENDANT) PROTIME 15.0(H) 11.5 - 14.7 Seconds 10/10/2023 10:14 AM WARD ATTENDANT [facility] LABORATORY [facility] INR 1.2(H) 0.9 - 1.1 10/10/2023 10:14 AM WARD ATTENDANT [facility] LABORATORY [facility] Blood Collection / Unknown 10/10/2023 3:30 AM WARD ATTENDANT 10/10/2023 9:51 AM WARD ATTENDANT Erik Chairez MD HEMATOLOGY ORDERABLES Final Resu lt [facility] [employer] [facility] CLIA# [id number] [address] [place] [address] * PREALBUMIN (10/10/2023 3:30 AM WARD ATTENDANT) PREALBUMIN 23 20 - 40 mg/dL 10/10/2023 2:24 PM WARD ATTENDANT [facility] LABORATORY [facility] Blood Collection / Unknown 10/10/2023 3:30 AM WARD ATTENDANT 10/10/2023 9:51 AM WARD ATTENDANT Erik Chairez MD CHEMISTRY ORDERABLES Final Resul t [facility] CLIA# [id number] [address] [place] [address] * (ABNORMAL) CBC WITH DIFFERENTIAL (10/10/2023 3:30 AM WARD ATTENDANT) [facility] WBC 10.1 4.5 - 10.5 K/uL 10/10/2023 11:06 AM [facility] RBC 3.85(L) 4.50 - 5.40 M/uL 10/10/2023 11:06 AM [facility] HEMOGLOBIN 11.6(L) 13.6 - 16.5 g/dL 10/10/2023 11:06 AM [facility] HEMATOCRIT 36.6(L) 40.0 - 48.0 % 10/10/2023 11:06 AM [facility] MCV 95.2 82.0 - 99.0 fL 10/10/2023 11:06 AM [facility] MCH 30.1 27.8 - 34.5 pg 10/10/2023 11:06 AM [facility] MCHC 31.6(L) 32.5 - 35.5 g/dL 10/10/2023 11:06 AM [facility] RDW 19.2(H) 11.5 - 14.5 % 10/10/2023 11:06 AM [facility] PLATELETS 250 160 - 420 K/uL 10/10/2023 11:06 AM [facility] MPV 9.8 8.7 - 12.7 fL 10/10/2023 11:06 AM [facility] NEUTROPHILS 72 % 10/10/2023 11:06 AM [facility] LYMPHOCYTES 15 % 10/10/2023 11:06 AM WARD ATTENDANT [facility] LABORATORY [facility] MONOCYTES 7 % 10/10/2023 11:06 AM WARD ATTENDANT [facility] LABORATORY [facility] EOSINOPHILS 5 % 10/10/2023 11:06 AM WARD ATTENDANT [facility] LABORAT[facility] BASOPHILS 0 % 10/10/2023 11:06 AM [facility] LABORATORY [facility] NEUTROPHIL ABSOLUTE 7.20(H) 1.90 - 7.00 K/uL 10/10/2023 11:06 AM [facility] LYMPHOCYTE ABSOLUTE 1.50 0.70 - 4.50 K/uL 10/10/2023 11:06 AM WARD ATTENDANT [facility] LABORATORY [facility] MONOCYTE ABSOLUTE 0.70 0.10 - 1.30 K/uL 10/10/2023 11:06 AM WARD ATTENDANT [facility] LABORATORY [facility] EOSINOPHIL ABSOLUTE 0.50 0.00 - 0.70 K/uL 10/10/2023 11:06 AM WARD ATTENDANT [facility] LABORATORY [facility] BASOPHILS ABSOLUTE 0.00 0.00 - 0.20 K/uL 10/10/2023 11:06 AM WARD ATTENDANT [facility] Blood Collection / Unknown 10/10/2023 3:30 AM WARD ATTENDANT 10/10/2023 9:51 AM WARD ATTENDANT us Erik Chairez MD HEMATOLOGY ORDERABLES Final Resu lt [facility] CLIA# [id number] [place] [address] * (ABNORMAL) COMPREHENSIVE METABOLIC PANEL (10/10/2023 3:30 AM WARD ATTENDANT) SODIUM 142 136 - 145 mmol/L 10/10/2023 10:49 AM [facility] POTASSIUM 4.1 3.4 - 5.1 mmol/L 10/10/2023 10:49 AM [facility] CHLORIDE 104 98 - 107 mmol/L 10/10/2023 10:49 AM [facility] CO2 23 22 - 29 mmol/L 10/10/2023 10:49 AM [facility] CALCIUM 9.4 8.6 - 10.4 mg/dL 10/10/2023 10:49 AM [facility] BUN 34(H) 6 - 20 mg/dL 10/10/2023 10:49 AM [facility] CREATININE 1.24(H) 0.67 - 1.17 mg/dL 10/10/2023 10:49 AM [facility] LABORATORY [facility] Comment:The GFR result is no t clinically significant on patients <18 or >70 years of age. GLUCOSE 91 74 - 99 mg/dL 10/10/2023 10:49 AM [facility] TOTAL PROTEIN 7.4 6.3 - 8.7 g/dL 10/10/2023 10:49 AM [facility] ALBUMIN 3.6 3.5 - 5.2 g/dL 10/10/2023 10:49 AM [facility] BILIRUBIN TOTAL 0.6 0.2 - 1.1 mg/dL 10/10/2023 10:49 AM [facility] ALKALINE PHOSPHATASE 84 40 - 150 U/L 10/10/2023 10:49 AM [facility] AST 15 0 - 41 U/L 10/10/2023 10:49 AM [facility] ALT 13 0 - 41 U/L 10/10/2023 10:49 AM [facility] GFR 58 mL/min/1.7 3 sq meter 10/10/2023 10:49 AM [facility] Comment:eGFR calculated with 2020 CKD-EPI equation. Vegetarian diet, extremely high or low muscle mass, and may affect results. Cystatin C with Glomerular Filtration Rate is a suitable alternative for these patients. 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
--- OUTSIDE RECORDS SUMMARY | 2025-01-06 15:10 | XMS_ITS | Encounter Summary ---
Author Organization [facility] Address [address] [place] [address] Care Team Providers Care Space Control Agent Name Role Phone Unavailable Primary Care Provider Unavailabl e Encounter Details Date Type Department Care Team (Late st Contact Info) Description 10/13/2023 Lab Requisition [facility] Laboratory Services [address] [place] [address] [place] [address] [place] [address] Social History Tobacco Use Types Packs/Day Years Used Date Smoking Tobacco: Never Assessed Sex and Gender Information Value Date Recorded Sex Assigned at Not on file Legal Sex Male 9:18 AM R AND D LAB TECHNICIAN Gender Identity Not on file Sexual Orientation Not on file documented as of this encounter Plan of Treatment Not on file documented as of this encounter Procedures Procedure Name Priority Date/Time Associated Diagnosis Comments MAGNESIUM LEVEL Routine 10/13/2023 4:00 AM R AND D LAB TECHNICIAN RENAL FUNCTION PANEL Routine 10/13/2023 4:00 AM R AND D LAB TECHNICIAN documented in this encounter Results * MAGNESIUM LEVEL (10/13/2023 4:00 AM R AND D LAB TECHNICIAN) MAGNESIUM 2.3 1.6 - 2.6 mg/dL 10/13/2023 5:59 AM R AND D LAB TECHNICIAN [facility] [facility] Blood Collection / Unknown 10/13/2023 4:00 AM R AND D LAB TECHNICIAN 10/13/2023 5:20 AM R AND D LAB TECHNICIAN us Erik Chairez MD CHEMISTRY ORDERABLES Final Resul t [id number] [address] [place] [address] * (ABNORMAL) RENAL FUNCTION PANEL (10/13/2023 4:00 AM R AND D LAB TECHNICIAN) SODIUM 138 136 - 145 mmol/L 10/13/2023 5:58 AM [facility] POTASSIUM 4.5 3.4 - 5.1 mmol/L 10/13/2023 5:58 AM [facility] CHLORIDE 100 98 - 107 mmol/L 10/13/2023 5:58 AM [facility] CO2 25 22 - 29 mmol/L 10/13/2023 5:58 AM [facility] CALCIUM 9.6 8.6 - 10.4 mg/dL 10/13/2023 5:58 AM [facility] BUN 39(H) 6 - 20 mg/dL 10/13/2023 5:58 AM [facility] CREATININE 1.09 0.67 - 1.17 mg/dL 10/13/2023 5:58 AM [facility] Comment:The GFR result is no t clinically significant on patients <18 or >70 years of age. GLUCOSE 100(H) 74 - 99 mg/dL 10/13/2023 5:58 AM [facility] ALBUMIN 3.5 3.5 - 5.2 g/dL 10/13/2023 5:58 AM [facility] PHOSPHORUS 4.8(H) 2.5 - 4.5 mg/dL 10/13/2023 5:58 AM [facility] GFR >60 mL/min/1.7 3 sq meter 10/13/2023 5:58 AM [facility] Comment:eGFR calculated with 2020 CKD-EPI equation. Vegetarian diet, extremely high or low muscle mass, and may affect results. Cystatin C with Glomerular Filtration Rate is a suitable alternative for these patients. ANION GAP 13 8 - 16 mmol/L 10/13/2023 5:58 AM [facility] Blood Collection / Unknown 10/13/2023 4:00 AM [facility] TECHNICIAN 10/13/2023 5:20 AM [facility] TECHNICIAN Erik Chairez MD CHEMISTRY ORDERABLES Final Resul t [facility] CLIA# [id number] [place] [address] documented in this encounter Visit Diagnoses Not on filedocumented in this encounter Additional Health Concerns Infection Onset Date Last Indicated Resolved Time CRE-CP Comment:10/09/23 Klebsiella pneumoniae, Sputum 10/09/2023 10/09/2023 05/28/2024 2:37 PM C 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
--- OUTSIDE RECORDS SUMMARY | 2025-01-06 15:10 | XMS_ITS | Encounter Summary ---
Author Organization [facility] Address [address] [place] [address] Care Team Providers Care Paper Carrier Name Role Phone Unavailable Primary Care Provider Unavailabl e Encounter Details Date Type Department Care Team (Late st Contact Info) Description 10/20/2023 Lab Requisition [facility] Laboratory Services [address] [place] [address] [place] [address] [place] [address] Social History Tobacco Use Types Packs/Day Years Used Date Smoking Tobacco: Never Assessed Sex and Gender Information Value Date Recorded Sex Assigned at Not on file Legal Sex Male 9:18 AM EXTRACORPOREAL CIRCULATION SPECIALIST Gender Identity Not on file Sexual Orientation Not on file documented as of this encounter Plan of Treatment Not on file documented as of this encounter Procedures Procedure Name Priority Date/Time Associated Diagnosis Comments CBC WITH DIFFERENTIAL Routine 10/20/2023 2:20 AM EXTRACORPOREAL CIRCULATION SPECIALIST BASIC METABOLIC PANEL Routine 10/20/2023 2:20 AM EXTRACORPOREAL CIRCULATION SPECIALIST documented in this encounter Results * (ABNORMAL) CBC WITH DIFFERENTIAL (10/20/2023 2:20 AM EXTRACORPOREAL CIRCULATION SPECIALIST) WBC 8.3 4.5 - 10.5 K/uL 10/20/2023 5:25 AM EXTRACORPOREAL CIRCULATION SPECIALIST [facility] LABORATORY SERVICES - [facility] RBC 3.82(L) 4.50 - 5.40 M/uL 10/20/2023 5:25 AM EXTRACORPOREAL CIRCULATION SPECIALIST [facility] LABORATORY [facility] - [facility] HEMOGLOBIN 11.2(L) 13.6 - 16.5 g/dL 10/20/2023 5:25 AM EXTRACORPOREAL CIRCULATION SPECIALIST [facility] LABORATORY SERVICES - [facility] HEMATOCRIT 35.0(L) 40.0 - 48.0 % 10/20/2023 5:25 AM EXTRACORPOREAL CIRCULATION SPECIALIST [facility] LABORATORY SERVICES [facility] MCV 91.6 82.0 - 99.0 fL 10/20/2023 5:25 AM EXTRACORPOREAL CIRCULATION SPECIALIST [facility] LABORATORY SERVICES - [facility] MCH 29.4 27.8 - 34.5 pg 10/20/2023 5:25 AM EXTRACORPOREAL CIRCULATION SPECIALIST [facility] LABORATORY SERVICES [facility] MCHC 32.1(L) 32.5 - 35.5 g/dL 10/20/2023 5:25 AM EXTRACORPOREAL CIRCULATION SPECIALIST [facility]ORATORY SERVICES - [facility] RDW 17.4(H) 11.5 - 14.5 % 10/20/2023 5:25 AM EXTRACORPOREAL CIRCULATION SPECIALIST [facility] - [facility] PLATELETS 255 160 - 420 K/uL 10/20/2023 5:25 AM EXTRACORPOREAL CIRCULATION SPECIALIST [facility] MPV 9.4 8.7 - 12.7 fL 10/20/2023 5:25 AM EXTRACORPOREAL CIRCULATION SPECIALIST [facility] - [facility] NEUTROPHILS 60 % 10/20/2023 5:25 AM EXTRACORPOREAL CIRCULATION SPECIALIST [facility] - [facility] LYMPHOCYTES 23 % 10/20/2023 5:25 AM EXTRACORPOREAL CIRCULATION SPECIALIST [employer] LABORATORY SERVICES [facility] MONOCYTES 6 % 10/20/2023 5:25 AM EXTRACORPOREAL CIRCULATION SPECIALIST [facility] EOSINOPHILS 11 % 10/20/2023 5:25 AM EXTRACORPOREAL CIRCULATION SPECIALIST [facility] BASOPHILS 1 % 10/20/2023 5:25 AM EXTRACORPOREAL CIRCULATION SPECIALIST [facility] NEUTROPHIL ABSOLUTE 4.90 1.90 - 7.00 K/uL 10/20/2023 5:25 AM EXTRACORPOREAL CIRCULATION SPECIALIST [facility] LYMPHOCYTE ABSOLUTE 1.90 0.70 - 4.50 K/uL 10/20/2023 5:25 AM EXTRACORPOREAL CIRCULATION SPECIALIST [employer] LABORATORY SERVICES [facility] MONOCYTE ABSOLUTE 0.50 0.10 - 1.30 K/uL 10/20/2023 5:25 AM EXTRACORPOREAL CIRCULATION SPECIALIST [facility] EOSINOPHIL ABSOLUTE 0.90(H) 0.00 - 0.70 K/uL 10/20/2023 5:25 AM EXTRACORPOREAL CIRCULATION SPECIALIST [facility] BASOPHILS ABSOLUTE 0.00 0.00 - 0.20 K/uL 10/20/2023 5:25 AM [facility] Blood 10/20/2023 2:20 AM EXTRACORPOREAL CIRCULATION SPECIALIST 10/20/2023 5:15 AM EXTRACORPOREAL CIRCULATION SPECIALIST Erik Chairez MD HEMATOLOGY ORDERABLES Final Resu lt [facility] CLIA# [id number] [place] [address] * (ABNORMAL) BASIC METABOLIC PANEL (10/20/2023 2:20 AM EXTRACORPOREAL CIRCULATION SPECIALIST) SODIUM 140 136 - 145 mmol/L 10/20/2023 5:53 AM [facility] POTASSIUM 3.8 3.4 - 5.1 mmol/L 10/20/2023 5:53 AM [facility] CHLORIDE 101 98 - 107 mmol/L 10/20/2023 5:53 AM [facility] CO2 26 22 - 29 mmol/L 10/20/2023 5:53 AM [facility] CALCIUM 9.6 8.6 - 10.4 mg/dL 10/20/2023 5:53 AM [facility] BUN 30(H) 6 - 20 mg/dL 10/20/2023 5:53 AM [facility] CREATININE 0.89 0.67 - 1.17 mg/dL 10/20/2023 5:53 AM [facility] Comment:The GFR result is no t clinically significant on patients <18 or >70 years of age. GLUCOSE 110(H) 74 - 99 mg/dL 10/20/2023 5:53 AM [facility] GFR >60 mL/min/1.7 3 sq meter 10/20/2023 5:53 AM [facility] Comment:eGFR calculated with 2020 CKD-EPI equation. Vegetarian diet, extremely high or low muscle mass, and may affect results. Cystatin C with Glomerular Filtration Rate is a suitable alternative for these patients. 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
--- OUTSIDE RECORDS SUMMARY | 2025-01-06 15:10 | XMS_ITS | Clinical Summary ---
Author Organization [facility] Address [address] [place] [address] Phone Care Team Providers Care Almond Blancher Name Role Phone Unavailable Primary Care Provider Unavailabl e Social History Tobacco Use Types Packs/Day Years Used Date Smoking Tobacco: Never Assessed Sex and Gender Information Value Date Recorded Sex Assigned at Not on file Legal Sex Male 9:18 AM DIGITAL SOLUTION ARCHITECT Gender Identity Not on file Sexual Orientation [...] Klebsiella pneumoniae, CRE-CP organism, Sputum 10/09/2023 10/09/2023 HATCH SUPERVISOR-CP Comment:10/09/23 Klebsiella pneumoniae, Sputum 10/09/2023 05/28/[address] [place] [address]
--- OUTSIDE RECORDS SUMMARY | 2025-01-06 15:10 | XMS_ITS | Encounter Summary ---
Author Organization [facility] Address [address] [facility] [place] [address] Care Team Providers Care Cafeteria Server Name Role Phone Demond Stark MD Primary Care Provider [phone] Encounter Details Date Type Department Care Team (Late Contact Info) Description 06/13/2023 Lab Requisition [facility] DermPath Lab [address] [place] [phone] Jaxon Anaya MD [address] [place], [place] [id number] Social History Tobacco Use Types Packs/Day Years Used Date Smoking Tobacco: Former Cigarettes Q uit: 09/23/1969 Smokeless Tobacco: Never Alcohol Use Standard Drinks/Week Comments Yes 0 (1 standard drink = 0.6 oz pur e alcohol) Sex and Gender Information Value Date Recorded Sex Assigned at Not on file Legal Sex Male 5:43 PM NURSING EDUCATION CONSULTANT Gender Identity Not on file Sexual Orientation Not on file documented as of this encounter Plan of Treatment Upcoming Encounters Date Type Department Care Team (Late Contact Info) Description 02/05/2025 8:30 AM CDT Office Visit [facility] - GI [address] [facility], [place] [phone] [place] [address] [place] [address] [address] FLO[address] DO[address] [place] [phone] 04/07/2025 2:00 PM CDT Office Visit [facility] - Neurology [facility] [facility], [place] [address] Venus Mckinley, HOP SEPARATOR-PLANER SETTER [address] [place] [address] documented as of this encounter Procedures Procedure Name Priority Date/Time Associated Diagnosis Comments DERMATOPATHOLOGY Routine 06/12/2023 12:0 0 AM CDT documented in this encounter Results * DERMATOPATHOLOGY (06/12/2023 12:00 AM CDT) Case Report Dermatopathology Report Case: [id number] Authorizing Provider: Jaxon Anaya MD Collected: 06/12/2023 12:00 AM Ordering Location: [facility] DermPath Lab Received: 06/13/2023 01:28 PM [...] specimen consists of a shave biopsy measuring [id number] mm. Jar 0. 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 09/25/202 3 3:42 PM CDT DERMATOPATHOLOGY LABORATORY Disclaimer An external and internal positive and negative controls are appropriate for the histochemical, immunohistochemical and immunofluorescence stain(s) in this case (if any), except where stated explicitly. The performance characteristics of the stain(s) cited in this report were developed and its performance characteristic determined by the Dermatopathology Laboratory at [facility], directed by Dr. Georgina Young. These tests need not be, and therefore are not, approved by the [place] Food and Drug Administration. The tests are used for clinical purposes. Billing Codes Specimen Charges Stain Charges 13469 1 05592 1 3 3:42 PM CDT DERMATOPATHOLOGY LABORATORY Embedded Images 3 3:42 PM CDT DERMATOPATHOLOGY LABORATORY Pathology/Cytolog y TISSUE SPECIMEN FROM SKIN / Unknown 06/12/2023 06/13/2023 1:28 PM CDT Jaxon Anaya MD LAB - PATHOLOGY/CYTOLOGY ORD ERABLES Final Result DERMATOPATHOLOGY LABORATORY [facility] - Department of Dermatology [address], [address] [phone] documented in this encounter Visit Diagnoses Not on filedocumented in this encounter Care Teams Cafeteria Server Relationship Specialty Start Date End Date Demond Stark MD [address] [place] [address] PCP - General 10/03/15 documented as of this encounter
--- OUTSIDE RECORDS SUMMARY | 2025-01-06 15:10 | XMS_ITS | Encounter Summary ---
Author Organization [facility] Address [address] [facility] [place] [address] Care Team Providers Care Textile Engineer Name Role Phone Demond Stark MD Primary Care Provider [phone] Encounter Details Date Type Department Care Team (Late Contact Info) Description 06/28/2023 Lab Requisition [facility]erm[facility] Lab [address] [place] [phone] Jaxon Anaya MD [address] [place], [place] [phone] Social History Tobacco Use Types Packs/Day Years Used Date Smoking Tobacco: Former Cigarettes Q uit: 09/23/1969 Smokeless Tobacco: Never Alcohol Use Standard Drinks/Week Comments Yes 0 (1 standard drink = 0.6 oz pur e alcohol) Sex and Gender Information Value Date Recorded Sex Assigned at Not on file Legal Sex Male 5:43 PM BEEF BONER Gender Identity Not on file Sexual Orientation Not on file documented as of this encounter Plan of Treatment Upcoming Encounters Date Type Department Care Team (Late Contact Info) Description 02/05/2025 8:30 AM CDT Office Visit [facility] GI [address] [facility], [place] [phone] [place] [address] [place] [address] [address] FLO[address] DO[address] 1 [place] [phone] 04/07/2025 2:00 PM CDT Office Visit [facility] - Neurology [facility] [facility], [place] [phone] Venus Mckinley, CATCH BASIN CLEANER-MAKE UP ARTIST [address] [place] [address] documented as of this encounter Procedures Procedure Name Priority Date/Time Associated Diagnosis Comments DERMATOPATHOLOGY Routine 06/26/2023 12:0 0 AM CDT documented in this encounter Results * DERMATOPATHOLOGY (06/26/2023 12:00 AM CDT) Case Report Dermatopathology Report Case: [id number] Authorizing Provider: Jaxon Anaya MD Collected: 06/26/2023 12:00 AM Ordering Location: [facility] DermPath Lab Received: 06/28/2023 09:48 AM Pathologist: Mackenzie Ureña MD Specimen: Skin, right paraspinal mid back 4:58 PM CDT DERMATOPATHOLOGY LABORATORY Final Diagnosis Specimen A. SKIN, right paraspinal mid back: EPIDERMOID CYST WITH EVIDENCE OF RUPTURE (L72.0) 3 4:58 PM CDT DERMATOPATHOLOGY LABORATORY Clinical History R/O Cyst 3 4:58 PM CDT DERMATOPATHOLOGY LABORATORY Gross Description Specimen A: Received is one formalin filled container labeled with the patient's name and designated right paraspinal mid back.The specimen consists of an ellipse measuring [id number] mm and is oriented with the suture/notch [...] in cassettes 3 - 9. Jar 0. 3 4:58 PM CDT DERMATOPATHOLOGY LABORATORY Microscopic Description Specimen A. SKIN, right paraspinal mid back: Within the dermis, there is a space lined by epithelium that resembles normal epidermis and the infundibular portion of the hair follicle. Surrounding this is an infiltrate with neutrophils, histiocytes, and multinucleated giant cells. 3 4:58 PM CDT DERMATOPATHOLOGY LABORATORY Disclaimer An external and internal positive and negative controls are appropriate for the histochemical, immunohistochemical and immunofluorescence stain(s) in this case (if any), except where stated explicitly. The performance characteristics of the stain(s) cited in this report were developed and its performance characteristic determined by the Dermatopathology Laboratory at [facility], directed by Dr. Georgina Young. These tests need not be, and therefore are not, approved by the [place] Food and Drug Administration. The tests are used for clinical purposes. Billing Codes Specimen Charges Stain Charges 59465 1 3 4:58 PM CDT DERMATOPATHOLOGY LABORATORY Embedded Images 3 4:58 PM CDT DERMATOPATHOLOGY LABORATORY Pathology/Cytolog y TISSUE SPECIMEN FROM SKIN / Unknown 06/26/2023 06/28/2023 9:48 AM CDT Jaxon Anaya MD LAB - PATHOLOGY/CYTOLOGY ORD ERABLES Final Result DERMATOPATHOLOGY LABORATORY [facility] - Department of Dermatology [facility] [address] [place] [address], [address] [place] [phone] documented in this encounter Visit Diagnoses Not on filedocumented in this encounter Care Teams Textile Engineer Relationship Specialty Start Date End Date Demond Stark MD [address] [place] [address] PCP - General 10/03/15 documented as of this encounter
--- OUTSIDE RECORDS SUMMARY | 2025-01-06 15:10 | XMS_ITS | Continuity of Care Document ---
Author Organization [facility] Address [address] [place] [address] [place] [address] Phone Care Team Providers Care Vp Patient Name Role Phone Karsten Mason MD Unavailable Unavailable Procedures Procedure Date Office/outpatient Visit, [facility] Advance Directives Directive Yes / No Effective Date File Name No Information Encounters Encounter Description Practice Location Reason(s) For Visit Diagnoses Date Provider Providers Copied on Encounter Office/outpat ient Visit, [facility], [address] [place] [address] [address], [place], [place], [id number], [place] tel:[phone] [facility] No Information [phone] Isabella Shelley. [address] [facility], [place], [place], [id number], [place]. tel:[phone] Family History Family Member Type Diagnosis Age At Onset No Information Payers Payer name Insurance type Covered republican ID Authoriza tion(s) Medicare [facility] [id number] Social History Type Description Quantity Date Captured [...]
--- OUTSIDE RECORDS SUMMARY | 2025-01-06 15:10 | XMS_ITS | Encounter Summary ---
Author Organization [facility] Address [address] [place] [address] Care Team Providers Care Jewelry Polisher Name Role Phone Unavailable Primary Care Provider Unavailabl e Encounter Details Date Type Department Care Team (Late st Contact Info) Description 10/17/2023 Lab Requisition [facility] [id number] [place] [address] [place] [address] [place] [address] Social History Tobacco Use Types Packs/Day Years Used Date Smoking Tobacco: Never Assessed Sex and Gender Information Value Date Recorded Sex Assigned at Not on file Legal Sex Male 9:18 AM BUSINESS OFFICE TECHNOLOGY INSTRUCTOR Gender Identity Not on file Sexual Orientation Not on file documented as of this encounter Plan of Treatment Not on file documented as of this encounter Procedures Procedure Name Priority Date/Time Associated Diagnosis Comments CBC WITH DIFFERENTIAL Routine 10/17/2023 2:15 AM BUSINESS OFFICE TECHNOLOGY INSTRUCTOR MAGNESIUM LEVEL Routine 10/17/2023 2:15 AM BUSINESS OFFICE TECHNOLOGY INSTRUCTOR RENAL FUNCTION PANEL Routine 10/17/2023 2:15 AM BUSINESS OFFICE TECHNOLOGY INSTRUCTOR documented in this encounter Results * MAGNESIUM LEVEL (10/17/2023 2:15 AM BUSINESS OFFICE TECHNOLOGY INSTRUCTOR) MAGNESIUM 2.3 1.6 - 2.6 mg/dL 10/17/2023 9:56 AM BUSINESS OFFICE TECHNOLOGY INSTRUCTOR [facility] Blood Collection / Unknown 10/17/2023 2:15 AM BUSINESS OFFICE TECHNOLOGY INSTRUCTOR 10/17/2023 9:00 AM BUSINESS OFFICE TECHNOLOGY INSTRUCTOR Erik Chairez MD CHEMISTRY ORDERABLES Final Resul t [facility] CLIA# [id number] [place] [address] * (ABNORMAL) CBC WITH DIFFERENTIAL (10/17/2023 2:15 AM BUSINESS OFFICE TECHNOLOGY INSTRUCTOR) WBC 6.7 4.5 - 10.5 K/uL 10/17/2023 9:34 AM BUSINESS OFFICE TECHNOLOGY INSTRUCTOR [facility] RBC 3.73(L) 4.50 - 5.40 M/uL 10/17/2023 9:34 AM BUSINESS OFFICE TECHNOLOGY INSTRUCTOR [facility] HEMOGLOBIN 11.1(L) 13.6 - 16.5 g/dL 10/17/2023 9:34 AM BUSINESS OFFICE TECHNOLOGY INSTRUCTOR [facility] HEMATOCRIT 35.0(L) 40.0 - 48.0 % 10/17/2023 9:34 AM BUSINESS OFFICE TECHNOLOGY INSTRUCTOR [facility] MCV 93.8 82.0 - 99.0 fL 10/17/2023 9:34 AM BUSINESS OFFICE TECHNOLOGY INSTRUCTOR [facility] MCH 29.8 27.8 - 34.5 pg 10/17/2023 9:34 AM BUSINESS OFFICE TECHNOLOGY INSTRUCTOR [facility] MCHC 31.8(L) 32.5 - 35.5 g/dL 10/17/2023 9:34 AM BUSINESS OFFICE TECHNOLOGY INSTRUCTOR [facility] RDW 17.4(H) 11.5 - 14.5 % 10/17/2023 9:34 AM BUSINESS OFFICE TECHNOLOGY INSTRUCTOR [facility] PLATELETS 214 160 - 420 K/uL 10/17/2023 9:34 AM BUSINESS OFFICE TECHNOLOGY INSTRUCTOR [facility] MPV 9.5 8.7 - 12.7 fL 10/17/2023 9:34 AM BUSINESS OFFICE TECHNOLOGY INSTRUCTOR [facility] NEUTROPHILS 50 % 10/17/2023 9:34 AM BUSINESS OFFICE TECHNOLOGY INSTRUCTOR [facility] LYMPHOCYTES 28 % 10/17/2023 9:34 AM BUSINESS OFFICE TECHNOLOGY INSTRUCTOR [facility] MONOCYTES 8 % 10/17/2023 9:34 AM BUSINESS OFFICE TECHNOLOGY INSTRUCTOR [facility] EOSINOPHILS 13 % 10/17/2023 9:34 AM BUSINESS OFFICE TECHNOLOGY INSTRUCTOR [facility] BASOPHILS 0 % 10/17/2023 9:34 AM BUSINESS OFFICE TECHNOLOGY INSTRUCTOR [facility] NEUTROPHIL ABSOLUTE 3.40 1.90 - 7.00 K/uL 10/17/2023 9:34 AM BUSINESS OFFICE TECHNOLOGY INSTRUCTOR [facility] LYMPHOCYTE ABSOLUTE 1.90 0.70 - 4.50 K/uL 10/17/2023 9:34 AM BUSINESS OFFICE TECHNOLOGY INSTRUCTOR [facility] MONOCYTE ABSOLUTE 0.50 0.10 - 1.30 K/uL 10/17/2023 9:34 AM BUSINESS OFFICE TECHNOLOGY INSTRUCTOR [facility] EOSINOPHIL ABSOLUTE 0.90(H) 0.00 - 0.70 K/uL 10/17/2023 9:34 AM BUSINESS OFFICE TECHNOLOGY INSTRUCTOR [facility] BASOPHILS ABSOLUTE 0.00 0.00 - 0.20 K/uL 10/17/2023 9:34 AM BUSINESS OFFICE TECHNOLOGY INSTRUCTOR [facility] Blood Collection / Unknown 10/17/2023 2:15 AM BUSINESS OFFICE TECHNOLOGY INSTRUCTOR 10/17/2023 9:00 AM BUSINESS OFFICE TECHNOLOGY INSTRUCTOR us Erik Chairez MD HEMATOLOGY ORDERABLES Final Resu lt [facility] CLIA# [id number] [place] [address] * (ABNORMAL) RENAL FUNCTION PANEL (10/17/2023 2:15 AM BUSINESS OFFICE TECHNOLOGY INSTRUCTOR) SODIUM 137 136 - 145 mmol/L 10/17/2023 9:56 AM [facility] [employer] [facility] POTASSIUM 4.0 3.4 - 5.1 mmol/L 10/17/2023 9:56 AM [facility] CHLORIDE 99 98 - 107 mmol/L 10/17/2023 9:56 AM [facility] [employer] [facility] CO2 23 22 - 29 mmol/L 10/17/2023 9:56 AM [facility] [employer] [facility] CALCIUM 9.2 8.6 - 10.4 mg/dL 10/17/2023 9:56 AM [facility] [employer] [facility] BUN 42(H) 6 - 20 mg/dL 10/17/2023 9:56 AM [facility] CREATININE 1.00 0.67 - 1.17 mg/dL 10/17/2023 9:56 AM [facility] Comment:The GFR result is no t clinically significant on patients <18 or >70 years of age. GLUCOSE 72(L) 74 - 99 mg/dL 10/17/2023 9:56 AM [facility] ALBUMIN 3.2(L) 3.5 - 5.2 g/dL 10/17/2023 9:56 AM [facility] PHOSPHORUS 2.9 2.5 - 4.5 mg/dL 10/17/2023 9:56 AM [facility] GFR >60 mL/min/1.7 3 sq meter 10/17/2023 9:56 AM [facility] Comment:eGFR calculated with 2020 CKD-EPI equation. Vegetarian diet, extremely high or low muscle mass, and may affect results. Cystatin C with Glomerular Filtration Rate is a suitable alternative for these patients. 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
--- OUTSIDE RECORDS SUMMARY | 2025-01-06 15:10 | XMS_ITS | Clinical Summary ---
Author Organization [facility] Address [address] [facility] [place] [address] Care Team Providers Care Selenium Plant Operator Name Role Phone Demond Stark MD Primary Care Provider [phone] Source Comments [facility],non-owned Affiliates and Associated Physician Practices is amultiple site organization consisting of ambulatory clinics and hospital sitesin [place], [place], [place] and [place]. This disclosure is being madepursuant to the Care Everywhere program and may not contain all information available regarding this patient. Last updated 18.[facility] Allergies Active Allergy Reactions Criticality Noted Date Comments Diphenhydramine Other 06/05/2024 Insomnia, hallucinations Benazepril Unknown 06/05/2024 Halobetasol Rash Medium 06/05/2024 Quetiapine Other 06/05/2024 Hallucinations, insomnia Hmg-Coa-R Inhibitors Other Low 10/03/2015 Pt reports leg weakness/heaviness when taking zocor. Medications * Be aware that medications may not be up to date on this document. Alwaysverify current medications with the patient. 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 Parkinsonism 09/06/2024 Falls 09/06/2024 Atrial fibrillation 09/06/2024 Muscular deconditioning 09/06/2024 Dysfunction of right eustachian tube 08/31/2024 Pre-operative cardiovascular examination 024 Dizziness 07/09/2024 Colostomy status 04/13/2024 Constipation, unspecified 04/13/2024 COVID-19 04/13/2024 Gastro-esophageal reflux disease without esophag itis 04/13/2024 History of falling 04/13/2024 Hypothyroidism, unspecified 04/13/2024 Hyperlipidemia, unspecified 04/13/2024 Old myocardial infarction 04/13/2024 Personal history of nicotine dependence 04/13/20 24 Personal history of other infectious and parasit ic diseases 04/13/2024 Personal history of other malignant neoplasm of skin 04/13/2024 Prediabetes 04/13/2024 Presence of aortocoronary bypass graft Tracheostomy status 04/13/2024 Chronic respiratory failure, unsp w hypoxia or h ypercapnia 01/14/2024 Chronic anticoagulation 03/25/2023 Fatty liver 03/25/2023 Bradycardia 08/07/2017 Elevated liver function tests 08/07/2017 Statin intolerance 10/15/2016 Overview (01/01/2025): Statin intolerance 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 10/04/2015 Essential hypertension 07/20/2013 Overview (01/01/2025): Hypertension Coronary arteriosclerosis in [place] artery 12/20 Overview (01/01/2025): IRENE GROSSMAN VSSL 2010: Non STEMI and CABG x3 (HOBSON to the LAD, sequential RA to OM and D1) History of coronary artery bypass surgery 2009 Overview (01/01/2025): AORTOCORONARY BYPASS Encounters Date Type Department Care Team Description 01/01/2025 9:30 AM CDT Office Visit [facility] - Neurology [address] [place] [address], [place] [address] Alberto Jeffers MD Dizziness (Primary Dx); Parkinsonism, unspecified Parkinsonism type (HCC) 01/01/2025 Travel 12/22/2024 1:23 PM CDT Anesthesia Event [facility] ENDOSCOPY [address] [place] [address] Nnamdi Miller DO Dobbs, Kristin L, SUPPRESSION CREW LEADER-WOOD CRAFTSMAN 12/22/2024 1:00 PM CDT - 12/22/2024 2:30 PM CDT Surgery [facility] ENDOSCOPY [address] [place] [address] Callie Mendoza DO EGD w/Z-poem 12/22/2024 11:53 AM CDT - 12/25/2024 4:30 PM CDT Hospital Encounter [facility] SHORT STAY UNIT [address] [place] [address] Callie Mendoza DO Vaidyan, Philip B, MD Surgery General Discharge Disposition: Home or Self Care 12/22/2024 Travel 12/16/2024 Telephone [facility] ENDOSCOPY [address] [place] [address] Alina Hinojosa Procedure (Procedure Confirmation) 12/08/2024 Telephone [facility] - GI [address] [place] [address] [place] [address] Karthik Keyes, customer support technician (EGD w/Zpoem for zenkers with Dr. Mendoza for patient seen in her clinic) 12/07/2024 8:13 AM CDT - 12/07/2024 11:59 PM CDT Hospital Encounter [facility] DIAGNOSTIC RAD [address] [place] [address] Callie Mendoza, Discharge Disposition: Home or Self Care 11/26/2024 Telephone [facility] - GI [address] [place] [phone] Ayden Chavis, MANUEL Appointment 11/20/2024 9:00 AM OPERATION RESEARCH ANALYST Office Visit [facility] - GI [address] [place] [phone] Callie Mendoza DO Zenker's diverticulum (Primary Dx); Frailty; Aspiration pneumonia due to gastric secretions, unspecified laterality, unspecified part of lung 11/20/2024 Travel 11/19/2024 Telephone [facility] - GI [address] [place] [phone] Neel Naylor MD Appointment 11/02/2024 Orders Only [facility] - Neurology [address] [place] [address], [place] [address] Alberto Jeffers MD Falls ; Cerebrovascular accident (CVA), unspecified mechanism; Type 2 diabetes mellitus with other specified complication, unspecified whether legal secretary insulin use 10/25/2024 4:30 PM OPERATION RESEARCH ANALYST - 10/25/2024 11:59 PM OPERATION RESEARCH ANALYST Hospital Encounter [facility] MRI [address] [place] [address] Natalia Vann DO Discharge Disposition: Home or Self Care 10/25/2024 4:30 PM OPERATION RESEARCH ANALYST - 10/25/2024 11:59 PM OPERATION RESEARCH ANALYST Hospital Encounter [facility] MRI [address] [place] [address] Natalia Vann, Discharge Disposition: Home or Self Care 10/25/2024 4:30 PM OPERATION RESEARCH ANALYST Hospital Encounter [facility] MRI [address] [place] [address] Natalia Vann, Discharge Disposition: Home or Self Care 10/25/2024 Travel 10/17/2024 5:55 PM OPERATION RESEARCH ANALYST - 10/17/2024 11:59 PM OPERATION RESEARCH ANALYST Hospital Encounter [facility] MRI [address] [place] [address] Natalia Vann, DO Discharge Disposition: Home or Self Care 10/17/2024 Travel 10/09/2024 11:00 AM OPERATION RESEARCH ANALYST Office Visit [facility] - Neurology [address] [facility] [place] [address] Alberto Jeffers MD Imbalance (Primary Dx); Back pain, unspecified back location, unspecified back pain laterality, unspecified chronicity; Cervical spine arthritis 10/09/2024 Travel from Last 3 Months Immunizations Immunization Administration Dates Next Due INFLUENZA VACCINE, QUADR. (A FLURIA, FLUZONE QUADRIVALENT; 6MO+) (IIV4) 07/24/2010 Social History Tobacco Use Types Packs/Day [...] and heating? Not hard at all 12/25/2024 [facility] [place] [facility] Occupat ional Health - Occupational Stress [...] any time in the past [address] [facility], were you homeless or living in a retirement (including now)? 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 Male 5:43 PM OPERATION RESEARCH ANALYST Gender Identity Not on file Sexual Orientation Not on file Last Filed Vital Signs Vital Sign Reading Time Taken Comments Blood Pressure 142/92 01/01/2025 9:15 AM CDT Pulse 90 01/01/2025 9:15 AM CDT Temperature 36.6 C (97.9 F) 12/25/2024 11:32 AM CDT Respiratory Rate 15 12/25/2024 11:32 AM CDT Oxygen Saturation 99% 01/01/2025 9:15 AM CDT Inhaled Oxygen Concentration - - Weight 93.2 kg (205 lb 8 oz) 01/01/2025 9:15 AM CDT Height 182.9 cm (6') 01/01/2025 9:15 AM CDT Body Mass Index 27.87 01/01/2025 9:15 AM CDT Plan of Treatment Upcoming Encounters Date Type Department Care Team (Late st Contact Info) Description 02/05/2025 8:30 AM CDT Office Visit [facility] - [address] [facility] [place] [address] Callie Mendoza DO [address] [facility] [address] [place] [address] 04/07/2025 2:00 PM CDT Office Visit [facility] - Neurology [address] [facility] [place] [address] Venus Mckinley, SUPPRESSION CREW LEADER-AERIAL TRAM OPERATOR [address] [place] [phone] Health Maintenance Due Date Last Done Comments [...] Patient-Stated? Author Nutrition General Improving( 10:12 AM OPERATION RESEARCH ANALYST) No Yohana Foster, RN Note: Expected end date: Working on plan Nutritional status is maintained or improving. Interventions: Take nutritional supplements as ordered Collaborate with the clinical alligator shear operator Oral care Use soft toothbrushes Keep hydrated Procedures Procedure Name Priority Date/Time Associated Diagnosis Comments RENAL FUNCTION PANEL AM Draw 12/25/2024 12:59 AM CDT Vera diverticula MAGNESIUM BLOOD Routine 12/25/2024 12:59 AM [...] TUBE NOTE Routine 12/22/2024 1:40 PM CDT NE ENDOSCOPIC ULTRASOUND EXAM 12/22/2024 1:19 PM CDT Zenker's diverticulum EGD Routine 12/22/2024 1:15 PM CDT FL ESOPHAGRAM Routine 12/07/2024 9:37 AM CDT Zenker's diverticulum MRI THORACIC SPINE WO CONTRAST Routine 10/25/2024 6:20 PM OPERATION RESEARCH ANALYST Imbalance Back pain, unspecified back location, unspecified back pain laterality, unspecified chronicity Cervical spine arthritis MRI LUMBAR SPINE WO CONTRAST Routine 10/25/2024 6:20 PM OPERATION RESEARCH ANALYST Imbalance Back pain, unspecified back location, unspecified back pain laterality, unspecified chronicity Cervical spine arthritis MRI CERVICAL SPINE WO CONTRAST Routine 10/25/2024 6:20 PM OPERATION RESEARCH ANALYST Imbalance Back pain, unspecified back location, unspecified back pain laterality, unspecified chronicity Cervical spine arthritis MRI BRAIN WWO CONTRAST Routine 10/17/2024 6:43 PM OPERATION RESEARCH ANALYST Imbalance Back pain, unspecified back location, unspecified back pain laterality, unspecified chronicity Cervical spine arthritis from Last 3 Months Results * (ABNORMAL) CBC W/O DIFFERENTIAL (12/25/2024 12:59 AM CDT) Only the most recent of3 resultswithin the time period is included. WBC 7.6 4.0 - 10.7 x10E9/L 12/25/2024 1:22 AM [facility] RBC Count 4.35 4.30 - 5.80 x10E12/L 12/25/2024 1:22 AM [facility] Hemoglobin 13.5 13.3 - 17.5 g/dL 12/25/2024 1:22 AM [facility] Hematocrit 40.0 38.7 - 51.1 % 12/25/2024 1:22 AM [facility] MCV 92.0 80.0 - 98.0 fL 12/25/2024 1:22 AM [facility] MCH 31.0 26.7 - 33.6 pg 12/25/2024 1:22 AM [facility] MCHC 33.8 31.7 - 36.3 g/dL 12/25/2024 1:22 AM [facility] RDW-CV 12.8 11.3 - 14.8 % 12/25/2024 1:22 AM [facility] Platelet Count 163 150 - 420 x10E9/L 12/25/2024 1:22 AM [facility] MPV 11.7(H) 7.8 - 11.4 fL 12/25/2024 1:22 AM [facility] Blood BLOOD SPECIMEN / Unknown Lab Venipuncture / Unknown 12/25/2024 12:59 AM CDT 12/25/2024 1:12 AM CDT Yasir Boyce MD LAB - HEMATOLOGY ORDERABLES Final Result [facility] [address] [place] [address], [facility] [phone] * (ABNORMAL) RENAL FUNCTION PANEL (12/25/2024 12:59 AM CDT) Only the most recent of4 resultswithin the time period is included. BUN 21 7 - 26 mg/dL 12/25/2024 1:43 AM [facility] Creatinine 1.01 0.71 - 1.16 mg/dL 12/25/2024 1:43 AM [facility] Sodium 140 136 - 145 mmol/L 12/25/2024 1:43 AM [facility] Potassium 4.0 3.5 - 4.5 mmol/L 12/25/2024 1:43 AM [facility] Chloride 105 98 - 107 mmol/L 12/25/2024 1:43 AM [facility] CO2 27 22 - 29 mmol/L 12/25/2024 1:43 AM [facility] Glucose 109(H) 70 - 99 mg/dL 12/25/2024 1:43 AM [facility] Albumin 3.7 3.4 - 5.0 g/dL 12/25/2024 1:43 AM [facility] Calcium 9.8 8.4 - 10.2 mg/dL 12/25/2024 1:43 AM [facility] Phosphorus 3.2 2.8 - 5.1 mg/dL 12/25/2024 1:43 AM [facility] Anion Gap 8 6 - 16 12/25/2024 1:43 AM [facility] BUN/Creatinine Ratio 21 7 - 23 12/25/2024 1:43 AM [facility] Osmolality Calculated 294 275 - 295 mOsm/kg 12/25/2024 1:43 AM CDT [facility] eGFR by CKD-EPI 73(L) >=90 mL/min/1.7 3 m2 12/25/2024 1:43 AM CDT [facility] Blood BLOOD SPECIMEN / Unknown Lab Venipuncture / Unknown 12/25/2024 12:59 AM CDT 12/25/2024 1:07 AM CDT us Yasir Boyce MD LAB - CHEMISTRY ORDERABLES F inal Result [address] [address], [facility] [phone] * MAGNESIUM BLOOD (12/25/2024 12:59 AM CDT) Only the most recent of3 resultswithin the time period is included. Magnesium 2.0 1.6 - 2.6 mg/dL 12/25/2024 1:43 AM CDT [facility] Blood BLOOD SPECIMEN / Unknown Lab Venipuncture / Unknown 12/25/2024 12:59 AM CDT 12/25/2024 1:07 AM CDT us Yasir Boyce MD LAB - CHEMISTRY ORDERABLES F inal Result Performing Organization Address City/[facility]/ZIP Co de Phone Number [address] [address], [place] [phone] * [place] SWALLOWING FUNCTION STUDY (12/24/2024 9:33 [...] 12/26/2024 12:48 AM Yasir Boyce MD FLUOROSCOPY ORDERABLES Final Result * [place] Esophagram (12/23/2024 8:50 AM CDT) [...] 12/23/2024 12:03 PM Yasir Boyce MD FLUOROSCOPY ORDERABLES Final Result * ETT LINE PERFORMABLE (12/22/2024 1:40 PM CDT) Narrative Rachelle John APRN-CRNA - 12/22/2024 1:40 PM CDT Rachelle John APRN-CRNA 12/22/2024 1:41 PM Endotracheal Tube Placement: Patient Location: OR. Procedure: intubation (54621) Procedure Section: Sedation: under general anesthesia. Indications [...] #1: Nnamdi Miller DO, Performed the procedure. us Nnamdi Miller DO GENERAL ANESTHESIA ORDERA BLES Final Result * EGD (12/22/2024 1:15 PM CDT) Report Endoscopy POC Endoscopy Department Report _ Patient Name: Lincoln Kimball Procedure Date: 12/22/2024 1:15 PM Date of : 1940 Classification: Outpatient Gender: Male Ethnicity: Not or Race: White _ Providers: Callie Mendoza DO Referring MD: Procedure: Upper GI endoscopy Indications: For [...] clips) were successfully placed (MR conditional). Clip explosives mixer operator: Nerveda. There was no bleeding at the end [...] entire procedure. Procedure Code(s): --- Professional --- 19035, 22, Esophagogastroduo denoscopy, flexible, transoral; diagnostic, including collection of specimen(s) by brushing or washing, when performed (separate procedure) 84329, Unlisted procedure, esophagus Diagnosis Code(s): --- Professional --- K22.2, Esophageal obstruction Q39.6, Congenital diverticulum of esophagus K22.89, Other specified disease of esophagus Q39.9, Congenital malformation of esophagus, unspecified K44.9, Diaphragmatic hernia without obstruction or gangrene K22.5, Diverticulum of esophagus, acquired CPT copyright 2021 [employer]. All rights reserved. The codes documented in this report are preliminary and upon certified procedural coder review may be revised to meet current compliance requirements. Callie Mendoza DO 12/22/2024 7:31:42 PM This report has been signed electronically. Note Initiated On: 12/22/2024 1:15 PM Number of Addenda: [address] [id number] [facility] PROVATION 12/22/2024 1:15 PM CDT us Callie Mendoza DO GI PROCEDURE ORDERABLES Edited R esult - Final [facility]OVATION * MRI Thoracic Spine Wo Contrast (10/25/2024 6:20 PM OPERATION RESEARCH ANALYST) Anatomical Region Laterality Modality Chest Magnetic Resonan ce 11/01/2024 10:3 8 AM OPERATION RESEARCH ANALYST Impressions 11/01/2024 11:01 AM OPERATION RESEARCH ANALYST IMPRESSION: 1. No acute findings in the thoracic spine. No cord abnormality or cord compression. 2. Mild multilevel degenerative disc disease and mild to moderate multilevel facet as a synovitis in the lumbar spine. No central canal stenosis. > Interpreting Provider: Mikaela Cunningham MD on 11/01/2024 11:01 AM Narrative 11/01/2024 11:01 AM OPERATION RESEARCH ANALYST PROCEDURE: MRI THORACIC SPINE WO CONTRAST, DATE/TIME OF EXAM: 10/25/2024 6:20 PM, LOCATION [facility] INDICATION: R26.89: Imbalance M54.9: Back pain, unspecified [...] DATE/TIME OF EXAM: 10/25/2024 6:20 PM, LOCATION [facility] INDICATION: R26.89: Imbalance M54.9: Back pain, unspecified [...] 11:01 AM Natalia Vann DO MR ORDERABLES Final Result * MRI Lumbar Spine Wo Contrast (10/25/2024 6:20 PM OPERATION RESEARCH ANALYST) Anatomical Region Laterality Modality Spine Magnetic Resonan ce 11/01/2024 11:0 1 AM OPERATION RESEARCH ANALYST Impressions 11/01/2024 11:09 AM OPERATION RESEARCH ANALYST IMPRESSION: 1. 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 No significant central canal or neuroforamina stenosis. > Interpreting Provider: Mikaela Cunningham MD on 11/01/2024 11:09 AM Narrative 11/01/2024 11:09 AM OPERATION RESEARCH ANALYST PROCEDURE: MRI LUMBAR SPINE WO CONTRAST, DATE/TIME OF EXAM: 10/25/2024 6:20 PM, LOCATION [facility] INDICATION: R26.89: Imbalance M54.9: Back pain, unspecified [...] CONTRAST, DATE/TIME OF EXAM: :20 PM, LOCATION [facility] INDICATION: R26.89: Imbalance M54.9: Back pain, unspecified [...] 11:09 AM Natalia Vann DO MR ORDERABLES Final Result * MRI Cervical Spine Wo Contrast (10/25/2024 6:20 PM OPERATION RESEARCH ANALYST) Anatomical Region Laterality Modality Pelvis Magnetic Resonan ce 11/01/2024 10:3 1 AM OPERATION RESEARCH ANALYST Impressions 11/01/2024 10:38 AM OPERATION RESEARCH ANALYST IMPRESSION: 1. 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 > Interpreting Provider: Mikaela Cunningham MD on 11/01/2024 10:38 AM Narrative 11/01/2024 10:38 AM OPERATION RESEARCH ANALYST PROCEDURE: MRI CERVICAL SPINE WO CONTRAST, DATE/TIME OF EXAM: 10/25/2024 6:20 PM, LOCATION [facility] INDICATION: R26.89: Imbalance M54.9: Back pain, unspecified [...] DATE/TIME OF EXAM: 10/25/2024 6:20 PM, LOCATION [facility] INDICATION: R26.89: Imbalance M54.9: Back pain, unspecified [...] 10:38 AM Natalia Vann DO MR ORDERABLES Final Result * MRI Brain Wwo Contrast (10/17/2024 6:43 PM OPERATION RESEARCH ANALYST) Anatomical Region Laterality Modality Head Magnetic Resonan ce 10/22/2024 4:16 PM OPERATION RESEARCH ANALYST Impressions 10/22/2024 4:28 PM OPERATION RESEARCH ANALYST IMPRESSION: 1. No acute intracranial process. Specifically, [...] 10/22/2024 4:28 PM Narrative 10/22/2024 4:28 PM OPERATION RESEARCH ANALYST PROCEDURE: MRI BRAIN WWO CONTRAST, DATE/TIME OF EXAM: 10/17/2024 6:45 PM, LOCATION [facility] INDICATION: R26.89: Imbalance M54.9: Back pain, unspecified [...] CONTRAST, DATE/TIME OF EXAM: 10/17/2024 6:45PM, LOCATION [facility] INDICATION: R26.89: Imbalance M54.9: Back pain, unspecified [...] Cunningham MD on 10/22/2024 4:28 PM Natalia N Huser DO MR ORDERABLES Final Result from Last 3 Months Insurance MEDICARE ANTHEM ANTH MEDICARE Advance Directives * Full Code (Latest Code Status on File) Date Activated Date Inactivated Comments 12/22/2024 4:39 PM 12/25/2024 7:01 PM Care Teams Selenium Plant Operator Relationship Specialty Start Date End Date Demond Stark MD [address] [place] [address] PCP - General 10/03/15
--- OUTSIDE RECORDS SUMMARY | 2025-01-06 15:10 | XMS_ITS | Referral Summary ---
Author Organization [facility] Medical Office Building B Address [address] [place] [address] Care Team Providers Care Emission Specialist Name Role Phone Demond Stark MD Primary Care Provider [phone] Encounters Date Type Department Care Team Description 12/21/2024 Results Follow-Up [facility] Cardiology [address] [place] [address] [address] [place] [phone] Cedric Dumont MD 12/17/2024 2:00 PM CDT Ancillary Procedure [facility] Medical [facility] Cardiology [address] [place] [address] [address] [place] [address] Persistent atrial fibrillation (HCC) 11/09/[address] [facility] Medical [facility] Cardiology [address] [place] [address] [address] [place] [phone] Cedric Dumont MD 11/05/2024 Telephone [facility] Cardiology [address] [place] [address] [address] [place] [phone] Cedric Dumont MD cardiac clearance; samples from Last 3 Months Allergies Active Allergy Reactions Criticality Noted Date Comments Diphenhydramine Hallucinations Medium 11/27/2023 Was not able to sleep and made him more anxious Lisinopril Cough Low Reaction: Cough, Pravastatin Muscle pain Medium Reaction: Muscular Pain, Quetiapine Other (See comments) Low 06/05/2024 Hallucinations, insomnia Simvastatin Muscle pain Medium Reaction: Muscular Pain, Vjugzar-Sjq-Pej Reductase Inhibitors Muscle pain,Other (See comments) Medium 10/03/2015 Pt reports leg weakness/heavine ss when taking zocor. Medications levothyroxine (SYNTHROID) 112 mcg tablet Take 1 tablet (112 mcg total) by mouth cloth reeler before breakfast Active aspirin 81 mg tablet [...] 08/31/2024 Assessment & Plan (10/05/2024 10:54 AM SASH FINISHER): Avoid ear cleaning techniques Avoid water to ears Follow up in 9 months for right ear tube check, earlier with ear drainage Assessment & Plan (08/31/2024 11:40 AM SASH FINISHER): Right myringotomy with T-tube placement Risks and [...] 07/09/2024 Assessment & Plan (08/31/2024 11:39 AM SASH FINISHER): Right myringotomy with T-tube placement Risks and [...] 08/07/2017 Assessment & Plan (08/07/2017 6:01 PM SASH FINISHER): Has had elevated LFTs and a fatty liver. Bradycardia 08/07/2017 Assessment & Plan (08/07/2017 5:58 PM SASH FINISHER): Asymptomatic bradycardia, on low-dose metoprolol which may eventually need to be reduced or discontinued. Traumatic subdural hematoma of neuraxis 10/15/19 17 Overview (12/28/2016): Traumatic subdural hematoma without loss of consciousness, sequela Statin intolerance 10/15/2016 Overview (12/28/2016): Statin intolerance Essential hypertension 07/20/2013 Overview (12/28/2016): Hypertension Assessment & Plan (08/07/2017 5:57 PM SASH FINISHER): Hypertension is not under good control; reviewing [...] HYPERLIPIDEMIA Assessment & Plan (08/07/2017 6:03 PM SASH FINISHER): Has refued further attempts at statin therapy. History of coronary artery bypass surgery 2009 Overview (12/26/2016): AORTOCORONARY BYPASS Coronary arteriosclerosis in [place] artery 12/20 Overview (08/07/2017): CRNRY ATHRSCL NATBHARAT VSSL 2009: Non STEMI and CABG x3 (HOBSON to the LAD, sequential RA to OM and D1) Assessment & Plan (08/07/2017 6:00 PM SASH FINISHER): 2009: Non STEMI and CABG x3 (HOBSON [...] 03/04/2018 Assessment & Plan (08/07/2017 5:58 PM SASH FINISHER): Patient is going to have knee surgery [...] on file Legal Sex Male 8:49 AM SASH FINISHER Gender Identity Not on file Sexual Orientation Not on file Last Filed Vital Signs Vital Sign Reading Time Taken Comments Blood Pressure 160/88 09/22/2024 1:04 PM SASH FINISHER Pulse 83 09/22/2024 1:04 PM SASH FINISHER Temperature 36.3 C (97.4 F) 09/22/2024 1:04 PM SASH FINISHER Respiratory Rate 18 09/22/2024 1:04 PM SASH FINISHER Oxygen Saturation 97% 09/22/2024 1:04 PM SASH FINISHER Inhaled Oxygen Concentration - - Weight 97.5 kg (214 lb 15.2 oz) 09/22/2024 9:41 AM SASH FINISHER Height 182.9 cm (6') 09/22/2024 9:41 AM SASH FINISHER Body Mass Index 29.15 09/22/2024 9:41 AM SASH FINISHER Plan of Treatment Not on file Medical Devices Implanted Type Area Zipper Trimmer Hand Device Identifier Shelf Expiration Date Model / Serial / Lot Cold [employer]rate [employer] 1.32mm 4.8mm Modify Ear T Tube Ventilation Ultrasil Sterile Blue [id number] - [id number] Implanted:Qty: 1 on 09/22/2024 by Laura Oakes DO at [facility] Right: Ear [employer] 07/13/2034 [id number] / / [id number] Procedures Procedure Name Priority Date/Time Associated Diagnosis Comments TRANSTHORACIC ECHO (TTE) COMPLETE W DOPPLER/CF WO CONTRAST Routine 12/17/2024 2:57 PM CDT Persistent atrial fibrillation (HCC) from Last 3 Months Results * TRANSTHORACIC ECHO (TTE) COMPLETE W DOPPLER/CF WO CONTRAST (12/17/2024 2:57 PM CDT) LV EF 45-50 % CONS SCIMAGE Anatomical Region Laterality Modality Ultrasound 12/17/2024 2:11 PM CDT Narrative 12/17/2024 4:[address] [facility] Cardiology [address], [place] [address] [address], [place] [address] P:[phone] P:[phone] Echocardiographic Report Patient Name: LINCOLN KIMBALL L : 1940 Study Date: 12/17/2024 2:11:41 PM Gender: M Tech: [facility] Location: [facility] Provider: CEDRIC DUMONT Height(Cm): 183 BSA: 2.22 [...] FINDINGS: Interpretation Site: [facility] Left Ventricle: Normal left ventricular size. [...] Procedure Note Koki Jimenez MD - 12/17/2024 [facility] Cardiology [address] [facility] [address], [place] [address] [address] [facility] [address], [place] [address] P:[phone] P:[phone] Echocardiographic Report Patient Name: LINCOLN KIMBALL L : 1940 Study Date: 12/17/2024 2:11:41 PM Gender: M Tech: [facility] Location: [facility] Provider: CEDRIC DUMONT Height(Cm): 183 BSA: 2.22 [...] FINDINGS: Interpretation Site: [facility]. Left Ventricle: Normal left ventricular size. [...] from Last 3 Months Insurance MEDICARE MEDICARE [facility] MEDICARE SUPPLEMENT Care Teams Emission Specialist Relationship Specialty Start Date End Date Demond Stark MD PCP - General 07/23/11
--- OUTSIDE RECORDS SUMMARY | 2025-01-06 15:10 | XMS_ITS | Clinical Summary ---
Author Organization [facility] Facility Address [address] [place] [address] Care Team Providers Care Capsule Filling Machine Operator Name Role Phone Demond Stark MD Primary Care Provider [phone] Social History Tobacco Use Types Packs/Day Years Used Date Smoking Tobacco: Never Assessed Sex and Gender Information Value Date Recorded Sex Assigned at Not on file Legal Sex Male 1:20 PM EDT Gender Identity Not on file Sexual Orientation Not on file Plan of Treatment Health Maintenance Due Date Last Done Comments Pneumococcal Vaccine: 50+ Years (1 of 2 - PCV) 959 Hepatitis B Vaccine (1 of 3 - Risk 3-dose series) 09/1999 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
--- OUTSIDE RECORDS SUMMARY | 2025-01-06 15:11 | XMS_ITS | Encounter Summary ---
Author Organization [facility] Address [address] [place] [address] Care Team Providers Care Combined Rail Operator Name Role Phone Unavailable Primary Care Provider Unavailabl e Encounter Details Date Type Department Care Team (Late st Contact Info) Description 11/04/2023 Lab Requisition [facility] Laboratory Services [address] [place] [address] [place] [address] [place] [address] Social History Tobacco Use Types Packs/Day Years Used Date Smoking Tobacco: Never Assessed Sex and Gender Information Value Date Recorded Sex Assigned at Not on file Legal Sex Male 9:18 AM UNDERWRITING SERVICE REPRESENTATIVE Gender Identity Not on file Sexual Orientation Not on file documented as of this encounter Plan of Treatment Not on file documented as of this encounter Procedures Procedure Name Priority Date/Time Associated Diagnosis Comments CBC WITH DIFFERENTIAL Routine 11/04/2023 3:45 AM UNDERWRITING SERVICE REPRESENTATIVE BASIC METABOLIC PANEL Routine 11/04/2023 3:45 AM UNDERWRITING SERVICE REPRESENTATIVE documented in this encounter Results * (ABNORMAL) CBC WITH DIFFERENTIAL (11/04/2023 3:45 AM UNDERWRITING SERVICE REPRESENTATIVE) WBC 12.2(H) 4.5 - 10.5 K/uL 11/04/2023 8:52 AM UNDERWRITING SERVICE REPRESENTATIVE [facility] RBC 4.11(L) 4.50 - 5.40 M/uL 11/04/2023 8:52 AM UNDERWRITING SERVICE REPRESENTATIVE [facility] HEMOGLOBIN 11.7(L) 13.6 - 16.5 g/dL 11/04/2023 8:52 AM UNDERWRITING SERVICE REPRESENTATIVE [facility] HEMATOCRIT 37.9(L) 40.0 - 48.0 % 11/04/2023 8:52 AM UNDERWRITING SERVICE REPRESENTATIVE [facility] MCV 92.2 82.0 - 99.0 fL 11/04/2023 8:52 AM UNDERWRITING SERVICE REPRESENTATIVE [facility] MCH 28.5 27.8 - 34.5 pg 11/04/2023 8:52 AM UNDERWRITING SERVICE REPRESENTATIVE [facility] MCHC 30.9(L) 32.5 - 35.5 g/dL 11/04/2023 8:52 AM UNDERWRITING SERVICE REPRESENTATIVE [facility] RDW 17.0(H) 11.5 - 14.5 % 11/04/2023 8:52 AM UNDERWRITING SERVICE REPRESENTATIVE [facility] PLATELETS 272 160 - 420 K/uL 11/04/2023 8:52 AM UNDERWRITING SERVICE REPRESENTATIVE [facility] MPV 10.0 8.7 - 12.7 fL 11/04/2023 8:52 AM UNDERWRITING SERVICE REPRESENTATIVE [facility] NEUTROPHILS 45 % 11/04/2023 8:52 AM UNDERWRITING SERVICE REPRESENTATIVE [facility] LYMPHOCYTES 38 % 11/04/2023 8:52 AM UNDERWRITING SERVICE REPRESENTATIVE [facility] MONOCYTES 7 % 11/04/2023 8:52 AM UNDERWRITING SERVICE REPRESENTATIVE [facility] EOSINOPHILS 11 % 11/04/2023 8:52 AM UNDERWRITING SERVICE REPRESENTATIVE [facility] BASOPHILS 1 % 11/04/2023 8:52 AM UNDERWRITING SERVICE REPRESENTATIVE [facility] NEUTROPHIL ABSOLUTE 5.50 1.90 - 7.00 K/uL 11/04/2023 8:52 AM UNDERWRITING SERVICE REPRESENTATIVE [facility] LYMPHOCYTE ABSOLUTE 4.60(H) 0.70 - 4.50 K/uL 11/04/2023 8:52 AM UNDERWRITING SERVICE REPRESENTATIVE [facility] MONOCYTE ABSOLUTE 0.80 0.10 - 1.30 K/uL 11/04/2023 8:52 AM UNDERWRITING SERVICE REPRESENTATIVE [facility] EOSINOPHIL ABSOLUTE 1.30(H) 0.00 - 0.70 K/uL 11/04/2023 8:52 AM UNDERWRITING SERVICE REPRESENTATIVE [facility] BASOPHILS ABSOLUTE 0.10 0.00 - 0.20 K/uL 11/04/2023 8:52 AM [facility] [employer] [facility] Blood 11/04/2023 3:45 AM UNDERWRITING SERVICE REPRESENTATIVE 11/04/2023 8:24 AM UNDERWRITING SERVICE REPRESENTATIVE Erik Chairez MD HEMATOLOGY ORDERABLES Final Resu lt [facility] CLIA# [id number] [place] [address] * (ABNORMAL) BASIC METABOLIC PANEL (11/04/2023 3:45 AM UNDERWRITING SERVICE REPRESENTATIVE) SODIUM 144 136 - 145 mmol/L 11/04/2023 9:49 AM [facility] POTASSIUM 5.3(H) 3.4 - 5.1 mmol/L 11/04/2023 9:49 AM [facility] CHLORIDE 103 98 - 107 mmol/L 11/04/2023 9:49 AM [facility] CO2 26 22 - 29 mmol/L 11/04/2023 9:49 AM [facility] CALCIUM 10.7(H) 8.6 - 10.4 mg/dL 11/04/2023 9:49 AM [facility] BUN 38(H) 6 - 20 mg/dL 11/04/2023 9:49 AM [facility] CREATININE 0.95 0.67 - 1.17 mg/dL 11/04/2023 9:49 AM [facility] Comment:The GFR result is no t clinically significant on patients <18 or >70 years of age. GLUCOSE 114(H) 74 - 99 mg/dL 11/04/2023 9:49 AM [facility] GFR >60 mL/min/1.7 3 sq meter 11/04/2023 9:49 AM [facility] Comment:eGFR calculated with 2020 CKD-EPI equation. Vegetarian diet, extremely high or low muscle mass, and may affect results. Cystatin C with Glomerular Filtration Rate is a suitable alternative for these patients. ANION GAP 15 8 - 16 mmol/L 11/04/2023 9:49 AM UNDERWRITING SERVICE REPRESENTATIVE [facility] Blood 11/04/2023 3:45 AM UNDERWRITING SERVICE REPRESENTATIVE 11/04/2023 8:24 AM UNDERWRITING SERVICE REPRESENTATIVE Erik Chairez MD CHEMISTRY ORDERABLES Final Resul t [facility] CLIA# [id number] [place] [address] documented in this encounter Visit Diagnoses Not on filedocumented in this encounter Additional Health Concerns Infection Onset Date Last Indicated Resolved Time 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
--- OUTSIDE RECORDS SUMMARY | 2025-01-06 15:11 | XMS_ITS | Encounter Summary ---
Author Organization [facility] Address [address] [place] [address] Care Team Providers Care Triage Rn Name Role Phone Unavailable Primary Care Provider Unavailabl e Encounter Details Date Type Department Care Team (Late st Contact Info) Description 11/10/2023 Lab Requisition [facility] Laboratory Services [address] [place] [address] [place] [address] [place] [address] Social History Tobacco Use Types Packs/Day Years Used Date Smoking Tobacco: Never Assessed Sex and Gender Information Value Date Recorded Sex Assigned at Not on file Legal Sex Male 9:18 AM DISC PAD GRINDING MACHINE FEEDER Gender Identity Not on file Sexual Orientation Not on file documented as of this encounter Plan of Treatment Not on file documented as of this encounter Procedures Procedure Name Priority Date/Time Associated Diagnosis Comments CBC WITH DIFFERENTIAL Routine 11/10/2023 6:10 AM DISC PAD GRINDING MACHINE FEEDER BASIC METABOLIC PANEL Routine 11/10/2023 6:10 AM DISC PAD GRINDING MACHINE FEEDER documented in this encounter Results * (ABNORMAL) CBC WITH DIFFERENTIAL (11/10/2023 6:10 AM DISC PAD GRINDING MACHINE FEEDER) WBC 7.9 4.5 - 10.5 K/uL 11/10/2023 6:55 AM DISC PAD GRINDING MACHINE FEEDER [facility] RBC 3.65(L) 4.50 - 5.40 M/uL 11/10/2023 6:55 AM DISC PAD GRINDING MACHINE FEEDER [facility] HEMOGLOBIN 10.8(L) 13.6 - 16.5 g/dL 11/10/2023 6:55 AM DISC PAD GRINDING MACHINE FEEDER [facility] HEMATOCRIT 33.6(L) 40.0 - 48.0 % 11/10/2023 6:55 AM DISC PAD GRINDING MACHINE FEEDER [facility] MCV 92.0 82.0 - 99.0 fL 11/10/2023 6:55 AM DISC PAD GRINDING MACHINE FEEDER [facility] MCH 29.7 27.8 - 34.5 pg 11/10/2023 6:55 AM DISC PAD GRINDING MACHINE FEEDER [facility] MCHC 32.2(L) 32.5 - 35.5 g/dL 11/10/2023 6:55 AM DISC PAD GRINDING MACHINE FEEDER [facility] RDW 17.0(H) 11.5 - 14.5 % 11/10/2023 6:55 AM DISC PAD GRINDING MACHINE FEEDER [facility] PLATELETS 251 160 - 420 K/uL 11/10/2023 6:55 AM DISC PAD GRINDING MACHINE FEEDER [facility] MPV 9.2 8.7 - 12.7 fL 11/10/2023 6:55 AM DISC PAD GRINDING MACHINE FEEDER [facility] NEUTROPHILS 62 % 11/10/2023 6:55 AM DISC PAD GRINDING MACHINE FEEDER [facility] LYMPHOCYTES 22 % 11/10/2023 6:55 AM DISC PAD GRINDING MACHINE FEEDER [facility] MONOCYTES 5 % 11/10/2023 6:55 AM DISC PAD GRINDING MACHINE FEEDER [facility] EOSINOPHILS 10 % 11/10/2023 6:55 AM DISC PAD GRINDING MACHINE FEEDER [facility] BASOPHILS 1 % 11/10/2023 6:55 AM DISC PAD GRINDING MACHINE FEEDER [facility] NEUTROPHIL ABSOLUTE 4.90 1.90 - 7.00 K/uL 11/10/2023 6:55 AM DISC PAD GRINDING MACHINE FEEDER [facility] SERVICES [facility] LYMPHOCYTE ABSOLUTE 1.70 0.70 - 4.50 K/uL 11/10/2023 6:55 AM DISC PAD GRINDING MACHINE FEEDER [facility] SERVICES [facility] MONOCYTE ABSOLUTE 0.40 0.10 - 1.30 K/uL 11/10/2023 6:55 AM DISC PAD GRINDING MACHINE FEEDER [facility] EOSINOPHIL ABSOLUTE 0.80(H) 0.00 - 0.70 K/uL 11/10/2023 6:55 AM DISC PAD GRINDING MACHINE FEEDER [facility] BASOPHILS ABSOLUTE 0.10 0.00 - 0.20 K/uL 11/10/2023 6:55 AM [facility] Blood 11/10/2023 6:10 AM DISC PAD GRINDING MACHINE FEEDER 11/10/2023 6:41 AM DISC PAD GRINDING MACHINE FEEDER Erik Chairez MD HEMATOLOGY ORDERABLES Final Resu lt [facility] CLIA# [id number] [place] [address] * (ABNORMAL) BASIC METABOLIC PANEL (11/10/2023 6:10 AM DISC PAD GRINDING MACHINE FEEDER) SODIUM 139 136 - 145 mmol/L 11/10/2023 7:14 AM [facility] POTASSIUM 4.2 3.4 - 5.1 mmol/L 11/10/2023 7:14 AM [facility] CHLORIDE 103 98 - 107 mmol/L 11/10/2023 7:14 AM [facility] CO2 26 22 - 29 mmol/L 11/10/2023 7:14 AM [facility] CALCIUM 9.4 8.6 - 10.4 mg/dL 11/10/2023 7:14 AM [facility] BUN 39(H) 6 - 20 mg/dL 11/10/2023 7:14 AM [facility] CREATININE 0.98 0.67 - 1.17 mg/dL 11/10/2023 7:14 AM [facility] Comment:The GFR result is no t clinically significant on patients <18 or >70 years of age. GLUCOSE 111(H) 74 - 99 mg/dL 11/10/2023 7:14 AM [facility] GFR >60 mL/min/1.7 3 sq meter 11/10/2023 7:14 AM [facility] Comment:eGFR calculated with 2020 CKD-EPI equation. Vegetarian diet, extremely high or low muscle mass, and may affect results. Cystatin C with Glomerular Filtration Rate is a suitable alternative for these patients. ANION GAP 10 8 - 16 mmol/L 11/10/2023 7:14 AM DISC PAD GRINDING MACHINE FEEDER [facility] Blood 11/10/2023 6:10 AM DISC PAD GRINDING MACHINE FEEDER 11/10/2023 6:41 AM DISC PAD GRINDING MACHINE FEEDER Erik Chairez MD CHEMISTRY ORDERABLES Final Resul t [facility] CLIA# [id number] [address] [place] [address] documented in this encounter Visit Diagnoses Not on filedocumented in this encounter Additional Health Concerns Infection Onset Date Last Indicated Resolved Time 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
--- OUTSIDE RECORDS SUMMARY | 2025-01-06 15:11 | XMS_ITS | Encounter Summary ---
Author Organization [facility] Address [address] [place] [address] Care Team Providers Care Bull Wheel Worker Name Role Phone Unavailable Primary Care Provider Unavailabl e Encounter Details Date Type Department Care Team (Late st Contact Info) Description 10/26/2023 Lab Requisition [facility] Laboratory Services [address] [place] [address] [place] [address] [place] [address] Social History Tobacco Use Types Packs/Day Years Used Date Smoking Tobacco: Never Assessed Sex and Gender Information Value Date Recorded Sex Assigned at Not on file Legal Sex Male 9:18 AM LITERATURE TEACHER Gender Identity Not on file Sexual Orientation Not on file documented as of this encounter Plan of Treatment Not on file documented as of this encounter Procedures Procedure Name Priority Date/Time Associated Diagnosis Comments CBC WITH DIFFERENTIAL Routine 10/26/2023 3:20 AM LITERATURE TEACHER BASIC METABOLIC PANEL Routine 10/26/2023 3:20 AM LITERATURE TEACHER documented in this encounter Results * (ABNORMAL) CBC WITH DIFFERENTIAL (10/26/2023 3:20 AM LITERATURE TEACHER) WBC 9.2 4.5 - 10.5 K/uL 10/26/2023 5:32 AM LITERATURE TEACHER [facility] RBC 3.83(L) 4.50 - 5.40 M/uL 10/26/2023 5:32 AM LITERATURE TEACHER [facility] - [facility] HEMOGLOBIN 11.4(L) 13.6 - 16.5 g/dL 10/26/2023 5:32 AM LITERATURE TEACHER [facility] - [facility] HEMATOCRIT 35.4(L) 40.0 - 48.0 % 10/26/2023 5:32 AM LITERATURE TEACHER [facility] MCV 92.4 82.0 - 99.0 fL 10/26/2023 5:32 AM LITERATURE TEACHER [facility] - [facility] MCH 29.6 27.8 - 34.5 pg 10/26/2023 5:32 AM LITERATURE TEACHER [facility] MCHC 32.0(L) 32.5 - 35.5 g/dL 10/26/2023 5:32 AM LITERATURE TEACHER [facility] RDW 17.3(H) 11.5 - 14.5 % 10/26/2023 5:32 AM LITERATURE TEACHER [facility] PLATELETS 240 160 - 420 K/uL 10/26/2023 5:32 AM LITERATURE TEACHER [facility] MPV 9.3 8.7 - 12.7 fL 10/26/2023 5:32 AM LITERATURE TEACHER [facility] NEUTROPHILS 69 % 10/26/2023 5:32 AM LITERATURE TEACHER [facility] LYMPHOCYTES 21 % 10/26/2023 5:32 AM LITERATURE TEACHER [facility] LABORATORY SERVICES [facility] MONOCYTES 6 % 10/26/2023 5:32 AM LITERATURE TEACHER [facility] EOSINOPHILS 4 % 10/26/2023 5:32 AM LITERATURE TEACHER [facility] BASOPHILS 1 % 10/26/2023 5:32 AM LITERATURE TEACHER [facility] NEUTROPHIL ABSOLUTE 6.30 1.90 - 7.00 K/uL 10/26/2023 5:32 AM LITERATURE TEACHER [facility] LYMPHOCYTE ABSOLUTE 1.90 0.70 - 4.50 K/uL 10/26/2023 5:32 AM LITERATURE TEACHER [facility] MONOCYTE ABSOLUTE 0.50 0.10 - 1.30 K/uL 10/26/2023 5:32 AM LITERATURE TEACHER [facility] EOSINOPHIL ABSOLUTE 0.40 0.00 - 0.70 K/uL 10/26/2023 5:32 AM LITERATURE TEACHER [facility] BASOPHILS ABSOLUTE 0.00 0.00 - 0.20 K/uL 10/26/2023 5:32 AM [facility] Blood Collection / Unknown 10/26/2023 3:20 AM LITERATURE TEACHER 10/26/2023 4:57 AM LITERATURE TEACHER Erik Chairez MD HEMATOLOGY ORDERABLES Final Resu lt [facility] CLIA# [id number] [address] [facility] [address] * (ABNORMAL) BASIC METABOLIC PANEL (10/26/2023 3:20 AM LITERATURE TEACHER) SODIUM 137 136 - 145 mmol/L 10/26/2023 5:58 AM [facility] POTASSIUM 4.2 3.4 - 5.1 mmol/L 10/26/2023 5:58 AM [facility] CHLORIDE 100 98 - 107 mmol/L 10/26/2023 5:58 AM [facility] CO2 27 22 - 29 mmol/L 10/26/2023 5:58 AM [facility] CALCIUM 9.8 8.6 - 10.4 mg/dL 10/26/2023 5:58 AM [facility] BUN 39(H) 6 - 20 mg/dL 10/26/2023 5:58 AM [facility] CREATININE 1.01 0.67 - 1.17 mg/dL 10/26/2023 5:58 AM [facility] Comment:The GFR result is no t clinically significant on patients <18 or >70 years of age. GLUCOSE 110(H) 74 - 99 mg/dL 10/26/2023 5:58 AM [facility] GFR >60 mL/min/1.7 3 sq meter 10/26/2023 5:58 AM [facility] Comment:eGFR calculated with 2020 CKD-EPI equation. Vegetarian diet, extremely high or low muscle mass, and may affect results. Cystatin C with Glomerular Filtration Rate is a suitable alternative for these patients. 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
--- OUTSIDE RECORDS SUMMARY | 2025-01-06 15:11 | XMS_ITS | Encounter Summary ---
Author Organization [facility] Address [address] [place] [address] Care Team Providers Care Informix Developer Name Role Phone Unavailable Primary Care Provider Unavailabl e Encounter Details Date Type Department Care Team (Late st Contact Info) Description 10/29/2023 Lab Requisition [facility] Laboratory Services [address] [place] [address] [place] [address] [place] [address] Social History Tobacco Use Types Packs/Day Years Used Date Smoking Tobacco: Never Assessed Sex and Gender Information Value Date Recorded Sex Assigned at Not on file Legal Sex Male 9:18 AM SPAGHETTI PRESS HELPER Gender Identity Not on file Sexual Orientation Not on file documented as of this encounter Plan of Treatment Not on file documented as of this encounter Procedures Procedure Name Priority Date/Time Associated Diagnosis Comments CBC WITH DIFFERENTIAL Routine 10/29/2023 3:20 AM SPAGHETTI PRESS HELPER BASIC METABOLIC PANEL Routine 10/29/2023 3:20 AM SPAGHETTI PRESS HELPER documented in this encounter Results * (ABNORMAL) CBC WITH DIFFERENTIAL (10/29/2023 3:20 AM SPAGHETTI PRESS HELPER) WBC 8.0 4.5 - 10.5 K/uL 10/29/2023 8:18 AM SPAGHETTI PRESS HELPER [facility] - [facility] RBC 3.85(L) 4.50 - 5.40 M/uL 10/29/2023 8:18 AM SPAGHETTI PRESS HELPER [facility] HEMOGLOBIN 11.6(L) 13.6 - 16.5 g/dL 10/29/2023 8:18 AM SPAGHETTI PRESS HELPER [facility] HEMATOCRIT 35.7(L) 40.0 - 48.0 % 10/29/2023 8:18 AM SPAGHETTI PRESS HELPER [facility] MCV 92.6 82.0 - 99.0 fL 10/29/2023 8:18 AM SPAGHETTI PRESS HELPER [facility] - [facility] MCH 30.0 27.8 - 34.5 pg 10/29/2023 8:18 AM SPAGHETTI PRESS HELPER [facility] MCHC 32.4(L) 32.5 - 35.5 g/dL 10/29/2023 8:18 AM SPAGHETTI PRESS HELPER [facility] RDW 17.3(H) 11.5 - 14.5 % 10/29/2023 8:18 AM SPAGHETTI PRESS HELPER [facility] PLATELETS 255 160 - 420 K/uL 10/29/2023 8:18 AM SPAGHETTI PRESS HELPER [facility] MPV 9.9 8.7 - 12.7 fL 10/29/2023 8:18 AM SPAGHETTI PRESS HELPER [facility] NEUTROPHILS 61 % 10/29/2023 8:18 AM SPAGHETTI PRESS HELPER [facility] LYMPHOCYTES 22 % 10/29/2023 8:18 AM SPAGHETTI PRESS HELPER [facility] MONOCYTES 6 % 10/29/2023 8:18 AM SPAGHETTI PRESS HELPER [facility] EOSINOPHILS 11 % 10/29/2023 8:18 AM SPAGHETTI PRESS HELPER [facility] BASOPHILS 1 % 10/29/2023 8:18 AM SPAGHETTI PRESS HELPER [facility] NEUTROPHIL ABSOLUTE 4.90 1.90 - 7.00 K/uL 10/29/2023 8:18 AM SPAGHETTI PRESS HELPER [facility] LYMPHOCYTE ABSOLUTE 1.70 0.70 - 4.50 K/uL 10/29/2023 8:18 AM SPAGHETTI PRESS HELPER [facility] MONOCYTE ABSOLUTE 0.50 0.10 - 1.30 K/uL 10/29/2023 8:18 AM SPAGHETTI PRESS HELPER [facility] EOSINOPHIL ABSOLUTE 0.80(H) 0.00 - 0.70 K/uL 10/29/2023 8:18 AM SPAGHETTI PRESS HELPER [facility] BASOPHILS ABSOLUTE 0.00 0.00 - 0.20 K/uL 10/29/2023 8:18 AM [facility] Blood Collection / Unknown 10/29/2023 3:20 AM SPAGHETTI PRESS HELPER 10/29/2023 7:59 AM SPAGHETTI PRESS HELPER Erik Chairez MD HEMATOLOGY ORDERABLES Final Resu lt [facility] CLIA# [id number] [place] [address] * (ABNORMAL) BASIC METABOLIC PANEL (10/29/2023 3:20 AM SPAGHETTI PRESS HELPER) SODIUM 141 136 - 145 mmol/L 10/29/2023 8:38 AM [facility] POTASSIUM 4.5 3.4 - 5.1 mmol/L 10/29/2023 8:38 AM [facility] CHLORIDE 101 98 - 107 mmol/L 10/29/2023 8:38 AM [facility] CO2 28 22 - 29 mmol/L 10/29/2023 8:38 AM [facility] CALCIUM 10.2 8.6 - 10.4 mg/dL 10/29/2023 8:38 AM [facility] BUN 42(H) 6 - 20 mg/dL 10/29/2023 8:38 AM [facility] CREATININE 1.05 0.67 - 1.17 mg/dL 10/29/2023 8:38 AM [facility] Comment:The GFR result is no t clinically significant on patients <18 or >70 years of age. GLUCOSE 112(H) 74 - 99 mg/dL 10/29/2023 8:38 AM [facility] GFR >60 mL/min/1.7 3 sq meter 10/29/2023 8:38 AM [facility] Comment:eGFR calculated with 2020 CKD-EPI equation. Vegetarian diet, extremely high or low muscle mass, and may affect results. Cystatin C with Glomerular Filtration Rate is a suitable alternative for these patients. ANION GAP 12 8 - 16 mmol/L 10/29/2023 8:38 AM SPAGHETTI PRESS HELPER [facility] Blood Collection / Unknown 10/29/2023 3:20 AM SPAGHETTI PRESS HELPER 10/29/2023 7:59 AM SPAGHETTI PRESS HELPER Erik Chairez MD CHEMISTRY ORDERABLES Final Resul t [facility] CLIA# [id number] [place] [address] documented in this encounter Visit Diagnoses Not on filedocumented in this encounter Additional Health Concerns Infection Onset Date Last Indicated Resolved Time 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
--- OUTSIDE RECORDS SUMMARY | 2025-01-06 15:11 | XMS_ITS | Encounter Summary ---
Author Organization [facility] Address [address] [place] [address] Care Team Providers Care Life Skills Instructor Name Role Phone Unavailable Primary Care Provider Unavailabl e Encounter Details Date Type Department Care Team (Late st Contact Info) Description 11/01/2023 Lab Requisition [facility] Laboratory Services [address] [place] [address] [place] [address] [place] [address] Social History Tobacco Use Types Packs/Day Years Used Date Smoking Tobacco: Never Assessed Sex and Gender Information Value Date Recorded Sex Assigned at Not on file Legal Sex Male 9:18 AM TANK ERECTOR Gender Identity Not on file Sexual Orientation Not on file documented as of this encounter Plan of Treatment Not on file documented as of this encounter Procedures Procedure Name Priority Date/Time Associated Diagnosis Comments CBC WITH DIFFERENTIAL Routine 11/01/2023 4:20 AM TANK ERECTOR BASIC METABOLIC PANEL Routine 11/01/2023 4:20 AM TANK ERECTOR documented in this encounter Results * (ABNORMAL) CBC WITH DIFFERENTIAL (11/01/2023 4:20 AM TANK ERECTOR) WBC 8.5 4.5 - 10.5 K/uL 11/01/2023 8:48 AM TANK ERECTOR [facility] - [facility] RBC 3.87(L) 4.50 - 5.40 M/uL 11/01/2023 8:48 AM TANK ERECTOR [facility] HEMOGLOBIN 11.2(L) 13.6 - 16.5 g/dL 11/01/2023 8:48 AM TANK ERECTOR [facility] - [facility] HEMATOCRIT 34.9(L) 40.0 - 48.0 % 11/01/2023 8:48 AM TANK ERECTOR [facility] SERVICES [facility] MCV 90.3 82.0 - 99.0 fL 11/01/2023 8:48 AM TANK ERECTOR [facility] SERVICES - [facility] MCH 29.0 27.8 - 34.5 pg 11/01/2023 8:48 AM TANK ERECTOR [facility] SERVICES [facility] MCHC 32.1(L) 32.5 - 35.5 g/dL 11/01/2023 8:48 AM TANK ERECTOR [facility] SERVICES [facility] RDW 17.0(H) 11.5 - 14.5 % 11/01/2023 8:48 AM TANK ERECTOR [facility] SERVICES [facility] PLATELETS 246 160 - 420 K/uL 11/01/2023 8:48 AM TANK ERECTOR [facility] MPV 9.7 8.7 - 12.7 fL 11/01/2023 8:48 AM TANK ERECTOR [facility] NEUTROPHILS 53 % 11/01/2023 8:48 AM TANK ERECTOR [facility] LYMPHOCYTES 29 % 11/01/2023 8:48 AM TANK ERECTOR [facility] MONOCYTES 7 % 11/01/2023 8:48 AM TANK ERECTOR [facility] EOSINOPHILS 12 % 11/01/2023 8:48 AM TANK ERECTOR [facility] BASOPHILS 1 % 11/01/2023 8:48 AM TANK ERECTOR [facility]ORY SERVICES [facility] NEUTROPHIL ABSOLUTE 4.50 1.90 - 7.00 K/uL 11/01/2023 8:48 AM TANK ERECTOR [facility]ORATORY SERVICES [facility] LYMPHOCYTE ABSOLUTE 2.40 0.70 - 4.50 K/uL 11/01/2023 8:48 AM TANK ERECTOR [facility] MONOCYTE ABSOLUTE 0.60 0.10 - 1.30 K/uL 11/01/2023 8:48 AM TANK ERECTOR [facility] SERVICES [facility] EOSINOPHIL ABSOLUTE 1.00(H) 0.00 - 0.70 K/uL 11/01/2023 8:48 AM TANK ERECTOR [facility]AT[facility] SERVICES [facility] BASOPHILS ABSOLUTE 0.00 0.00 - 0.20 K/uL 11/01/2023 8:48 AM [facility] Blood Collection / Unknown 11/01/2023 4:20 AM TANK ERECTOR 11/01/2023 7:57 AM TANK ERECTOR Erik Chariez MD HEMATOLOGY ORDERABLES Final Resu lt [facility] CLIA# [id number] [place] [address] * (ABNORMAL) BASIC METABOLIC PANEL (11/01/2023 4:20 AM TANK ERECTOR) SODIUM 139 136 - 145 mmol/L 11/01/2023 9:12 AM [facility] POTASSIUM 3.7 3.4 - 5.1 mmol/L 11/01/2023 9:12 AM [facility] CHLORIDE 100 98 - 107 mmol/L 11/01/2023 9:12 AM [facility] CO2 27 22 - 29 mmol/L 11/01/2023 9:12 AM [facility] CALCIUM 9.8 8.6 - 10.4 mg/dL 11/01/2023 9:12 AM [facility] BUN 41(H) 6 - 20 mg/dL 11/01/2023 9:12 AM [facility] CREATININE 0.93 0.67 - 1.17 mg/dL 11/01/2023 9:12 AM [facility] Comment:The GFR result is no t clinically significant on patients <18 or >70 years of age. GLUCOSE 109(H) 74 - 99 mg/dL 11/01/2023 9:12 AM [facility] GFR >60 mL/min/1.7 3 sq meter 11/01/2023 9:12 AM [facility] Comment:eGFR calculated with 2020 CKD-EPI equation. Vegetarian diet, extremely high or low muscle mass, and may affect results. Cystatin C with Glomerular Filtration Rate is a suitable alternative for these patients. ANION GAP 12 8 - 16 mmol/L 11/01/2023 9:12 AM TANK ERECTOR [facility]ORATORY SERVICES [facility] Blood Collection / Unknown 11/01/2023 4:20 AM TANK ERECTOR 11/01/2023 7:57 AM TANK ERECTOR Erik Chairez MD CHEMISTRY ORDERABLES Final Resul t [facility] SERVICES [facility] CLIA# [id number] [place] [address] documented in this encounter Visit Diagnoses Not on filedocumented in this encounter Additional Health Concerns Infection Onset Date Last Indicated Resolved Time 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
--- OUTSIDE RECORDS SUMMARY | 2025-01-06 15:11 | XMS_ITS | Encounter Summary ---
Author Organization [facility] Address [address] [place] [address] Care Team Providers Care Research Home Economist Name Role Phone Unavailable Primary Care Provider Unavailabl e Encounter Details Date Type Department Care Team (Late st Contact Info) Description 11/07/2023 Lab Requisition [facility] Laboratory Services [address] [place] [address] [place] [address] [place] [address] Social History Tobacco Use Types Packs/Day Years Used Date Smoking Tobacco: Never Assessed Sex and Gender Information Value Date Recorded Sex Assigned at Not on file Legal Sex Male 9:18 AM PATTERN CLEANER Gender Identity Not on file Sexual Orientation Not on file documented as of this encounter Plan of Treatment Not on file documented as of this encounter Procedures Procedure Name Priority Date/Time Associated Diagnosis Comments THEOPHYLLINE LEVEL Routine 11/07/2023 8: 40 AM PATTERN CLEANER documented in this encounter Results * (ABNORMAL) THEOPHYLLINE LEVEL (11/07/2023 8:40 AM PATTERN CLEANER) THEOPHYLLINE LEVEL <0.8(L) 10.0 - 20.0 ug/mL 11/07/2023 3:56 PM PATTERN CLEANER [facility]ORATORY SERVICES [facility] Comment:Verified by repeat a nalysis. TDM LAST DATE, TIME, AMT (TIFFANIE) Patient unable to state date. time or dose. 11/07/2023 3:56 PM PATTERN CLEANER [facility] LABORATORY SERVICES [facility] LAST DOSE AMT, THEOPHYLLINE Other 11/07/2023 3:56 PM PATTERN CLEANER [facility] LABORATORY SERVICES [facility] Comment:80 mg Blood 11/07/2023 8:40 AM PATTERN CLEANER 11/07/2023 10:34 AM PATTERN CLEANER Narrative [facility] LABORATORY [facility] - 11/07/2023 3:56 PM PATTERN CLEANER Theophylline Toxic Levels: 6 months - Adult = >20.0 ug/mL 0 - 6 months = >15.0 ug/mL Erik Chairez MD CHEMISTRY ORDERABLES Final Resul t [facility] CLIA# [id number] [address] [place] [address] [facility] CLIA# [id number] [place] [address] documented in this encounter Visit Diagnoses Not on filedocumented in this encounter Additional Health Concerns Infection Onset Date Last Indicated Resolved Time 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
--- OUTSIDE RECORDS SUMMARY | 2025-01-06 15:11 | XMS_ITS | Encounter Summary ---
Author Organization [facility] Address [address] [place] [address] Care Team Providers Care Customs Compliance Specialist Name Role Phone Unavailable Primary Care Provider Unavailabl e Encounter Details Date Type Department Care Team (Late st Contact Info) Description 11/07/2023 Lab Requisition [facility] Laboratory Services [id number] [place] [address] [place] [address] [place] [address] Social History Tobacco Use Types Packs/Day Years Used Date Smoking Tobacco: Never Assessed Sex and Gender Information Value Date Recorded Sex Assigned at Not on file Legal Sex Male 9:18 AM SNOW MAKER Gender Identity Not on file Sexual Orientation Not on file documented as of this encounter Plan of Treatment Not on file documented as of this encounter Procedures Procedure Name Priority Date/Time Associated Diagnosis Comments CBC WITH DIFFERENTIAL Routine 11/07/2023 4:30 AM SNOW MAKER BASIC METABOLIC PANEL Routine 11/07/2023 4:30 AM SNOW MAKER documented in this encounter Results * (ABNORMAL) CBC WITH DIFFERENTIAL (11/07/2023 4:30 AM SNOW MAKER) WBC 9.4 4.5 - 10.5 K/uL 11/07/2023 8:10 AM SNOW MAKER [facility] LABORATORY SERVICES - [facility] RBC 4.06(L) 4.50 - 5.40 M/uL 11/07/2023 8:10 AM SNOW MAKER [facility] LABOR[facility] - [facility] HEMOGLOBIN 11.9(L) 13.6 - 16.5 g/dL 11/07/2023 8:10 AM SNOW MAKER [facility] - [facility] HEMATOCRIT 37.1(L) 40.0 - 48.0 % 11/07/2023 8:10 AM SNOW MAKER [facility] LABORATORY SERVICES [facility] MCV 91.5 82.0 - 99.0 fL 11/07/2023 8:10 AM SNOW MAKER [facility] LABORATORY SERVICES - [facility] MCH 29.4 27.8 - 34.5 pg 11/07/2023 8:10 AM SNOW MAKER [facility] LABORATORY SERVICES [facility] MCHC 32.1(L) 32.5 - 35.5 g/dL 11/07/2023 8:10 AM SNOW MAKER [facility] LABORATORY SERVICES [facility] RDW 16.9(H) 11.5 - 14.5 % 11/07/2023 8:10 AM SNOW MAKER [facility] LABORATORY SERVICES [facility] PLATELETS 270 160 - 420 K/uL 11/07/2023 8:10 AM SNOW MAKER [facility] LABORATORY SERVICES [facility] MPV 10.0 8.7 - 12.7 fL 11/07/2023 8:10 AM SNOW MAKER [facility] LABORATORY SERVICES [facility] NEUTROPHILS 61 % 11/07/2023 8:10 AM SNOW MAKER [facility] LABORATORY SERVICES [facility] LYMPHOCYTES 21 % 11/07/2023 8:10 AM SNOW MAKER [facility] MONOCYTES 6 % 11/07/2023 8:10 AM SNOW MAKER [facility] EOSINOPHILS 11 % 11/07/2023 8:10 AM SNOW MAKER [facility] BASOPHILS 1 % 11/07/2023 8:10 AM SNOW MAKER [facility] LABORATORY SERVICES [facility] NEUTROPHIL ABSOLUTE 5.70 1.90 - 7.00 K/uL 11/07/2023 8:10 AM SNOW MAKER [facility] LABORATORY SERVICES [facility] LYMPHOCYTE ABSOLUTE 2.00 0.70 - 4.50 K/uL 11/07/2023 8:10 AM SNOW MAKER [facility] MONOCYTE ABSOLUTE 0.60 0.10 - 1.30 K/uL 11/07/2023 8:10 AM SNOW MAKER [facility] LABORATORY SERVICES [facility] EOSINOPHIL ABSOLUTE 1.00(H) 0.00 - 0.70 K/uL 11/07/2023 8:10 AM SNOW MAKER [facility] LABORATORY SERVICES [facility] BASOPHILS ABSOLUTE 0.10 0.00 - 0.20 K/uL 11/07/2023 8:10 AM [facility] Blood 11/07/2023 4:30 AM SNOW MAKER 11/07/2023 8:06 AM SNOW MAKER us Erik Chairez MD HEMATOLOGY ORDERABLES Final Resu lt [facility] CLIA# [id number] [place] [address] * (ABNORMAL) BASIC METABOLIC PANEL (11/07/2023 4:30 AM SNOW MAKER) SODIUM 137 136 - 145 mmol/L 11/07/2023 8:41 AM [facility] POTASSIUM 4.2 3.4 - 5.1 mmol/L 11/07/2023 8:41 AM [facility] CHLORIDE 100 98 - 107 mmol/L 11/07/2023 8:41 AM [facility] CO2 22 22 - 29 mmol/L 11/07/2023 8:41 AM [facility] CALCIUM 9.9 8.6 - 10.4 mg/dL 11/07/2023 8:41 AM [facility] BUN 41(H) 6 - 20 mg/dL 11/07/2023 8:41 AM [facility] CREATININE 1.03 0.67 - 1.17 mg/dL 11/07/2023 8:41 AM [facility] Comment:The GFR result is no t clinically significant on patients <18 or >70 years of age. GLUCOSE 109(H) 74 - 99 mg/dL 11/07/2023 8:41 AM [facility] GFR >60 mL/min/1.7 3 sq meter 11/07/2023 8:41 AM [facility] Comment:eGFR calculated with 2020 CKD-EPI equation. Vegetarian diet, extremely high or low muscle mass, and may affect results. Cystatin C with Glomerular Filtration Rate is a suitable alternative for these patients. 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
--- OUTSIDE RECORDS SUMMARY | 2025-01-06 15:11 | XMS_ITS | Encounter Summary ---
Author Organization [facility] Address [address] [place] [address] Care Team Providers Care Transfer Controller Name Role Phone Unavailable Primary Care Provider Unavailabl e Encounter Details Date Type Department Care Team (Late st Contact Info) Description 11/05/2023 Lab Requisition [facility] Laboratory Services [address] [place] [address] [place] [address] [place] [address] Social History Tobacco Use Types Packs/Day Years Used Date Smoking Tobacco: Never Assessed Sex and Gender Information Value Date Recorded Sex Assigned at Not on file Legal Sex Male 9:18 AM COIL TIER Gender Identity Not on file Sexual Orientation Not on file documented as of this encounter Plan of Treatment Not on file documented as of this encounter Procedures Procedure Name Priority Date/Time Associated Diagnosis Comments DIFFERENTIAL, MANUAL Routine 11/05/2023 3:30 AM COIL TIER CBC WITH DIFFERENTIAL Routine 11/05/2023 3:30 AM COIL TIER documented in this encounter Results * MANUAL DIFFERENTIAL (11/05/2023 3:30 AM COIL TIER) PLATELET EST. Consistent w Count 11/05/2023 6:05 AM COIL TIER [facility] RBC MORPHOLOGY Normal 11/05/2023 6:05 AM COIL TIER [facility] Blood Collection / Unknown 11/05/2023 3:30 AM COIL TIER 11/05/2023 5:05 AM COIL TIER Erik Chairez MD HEMATOLOGY ORDERABLES COM Final Result [facility] CLIA# [id number] [place] [address] * (ABNORMAL) CBC WITH DIFFERENTIAL (11/05/2023 3:30 AM COIL TIER) [facility] WBC 7.5 4.5 - 10.5 K/uL 11/05/2023 6:05 AM [facility] LABORATORY [facility] RBC 3.81(L) 4.50 - 5.40 M/uL 11/05/2023 6:05 AM [facility] HEMOGLOBIN 11.9(L) 13.6 - 16.5 g/dL 11/05/2023 6:05 AM [facility] HEMATOCRIT 35.6(L) 40.0 - 48.0 % 11/05/2023 6:05 AM [facility] [employer] [facility] MCV 93.5 82.0 - 99.0 fL 11/05/2023 6:05 AM [facility] [employer] [facility] MCH 31.2 27.8 - 34.5 pg 11/05/2023 6:05 AM [facility] [employer] [facility] MCHC 33.3 32.5 - 35.5 g/dL 11/05/2023 6:05 AM [facility] [employer] [facility] RDW 17.0(H) 11.5 - 14.5 % 11/05/2023 6:05 AM [facility] [employer] [facility] PLATELETS 243 160 - 420 K/uL 11/05/2023 6:05 AM [facility] [employer] [facility] MPV 9.4 8.7 - 12.7 fL 11/05/2023 6:05 AM [facility] LABORATORY [facility] NEUTROPHILS 63 % 11/05/2023 6:05 AM COIL TIER [facility] [employer] [facility] LYMPHOCYTES 23 % 11/05/2023 6:05 AM COIL TIER [facility] LABORATORY [facility] MONOCYTES 5 % 11/05/2023 6:05 AM [facility] LABORATORY [facility] EOSINOPHILS 9 % 11/05/2023 6:05 AM COIL TIER [facility] LABORATORY [facility] BASOPHILS 1 % 11/05/2023 6:05 AM COIL TIER [facility] LABORATORY [facility] NEUTROPHIL ABSOLUTE 4.70 1.90 - 7.00 K/uL 11/05/2023 6:05 AM COIL TIER [facility] LABORATORY [facility] LYMPHOCYTE ABSOLUTE 1.70 0.70 - 4.50 K/uL 11/05/2023 6:05 AM COIL TIER [facility] LABORATORY [facility] MONOCYTE ABSOLUTE 0.40 0.10 - 1.30 K/uL 11/05/2023 6:05 AM COIL TIER [facility] LABORATORY [facility] EOSINOPHIL ABSOLUTE 0.70 0.00 - 0.70 K/uL 11/05/2023 6:05 AM COIL TIER [facility] LABORATORY SERVICES - [facility] BASOPHILS ABSOLUTE 0.00 0.00 - 0.20 K/uL 11/05/2023 6:05 AM COIL TIER [facility] LABORATORY [facility] Blood Collection / Unknown 11/05/2023 3:30 AM COIL TIER 11/05/2023 5:05 AM COIL TIER Erik Chairez MD HEMATOLOGY ORDERABLES Final Resu lt [facility] CLIA# [id number] [place] [address] documented in this encounter Visit Diagnoses Not on filedocumented in this encounter Additional Health Concerns Infection Onset Date Last Indicated Resolved Time CRE-CP Comment:10/09/23 Klebsiella pneumoniae, Sputum 10/09/2023 10/09/2023 05/28/2024 2:37 PM C 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
[2025-01-06 15:22] LABS: Toxigenic C. Diff POSITIVE (NEGATIVE)
== END 2025-01-06 13:55 | disposition home or self-care (01) ==
LOC: HOME HLTH 13:56
PROVIDERS: PCP Family Medicine; Visit Provider Nurse Practitioner Adult Health
DX: R19.7 Diarrhea, unspecified (principal)
CPT/HCPCS: 87045; 87427; 87449; 87493

== ENCOUNTER 2025-01-27 13:35 | Outpatient (CLI) | payer MEDICARE, SELFPAY ==
--- OUTSIDE RECORDS SUMMARY | 2025-01-27 13:45 | XMS_ITS | Encounter Summary ---
Author Organization [facility] Address [address] [place] [address] Care Team Providers Care Law Reporter Name Role Phone Unavailable Primary Care Provider Unavailabl e Encounter Details Date Type Department Care Team (Late st Contact Info) Description 10/29/2023 Lab Requisition [facility] Laboratory Services [address] [place] [address] [place] [address] [place] [address] Social History Tobacco Use Types Packs/Day Years Used Date Smoking Tobacco: Never Assessed Sex and Gender Information Value Date Recorded Sex Assigned at Not on file Legal Sex Male 9:18 AM TIRE SERVICER Gender Identity Not on file Sexual Orientation Not on file documented as of this encounter Plan of Treatment Not on file documented as of this encounter Procedures Procedure Name Priority Date/Time Associated Diagnosis Comments CBC WITH DIFFERENTIAL Routine 10/29/2023 3:20 AM TIRE SERVICER BASIC METABOLIC PANEL Routine 10/29/2023 3:20 AM TIRE SERVICER documented in this encounter Results * (ABNORMAL) CBC WITH DIFFERENTIAL (10/29/2023 3:20 AM TIRE SERVICER) WBC 8.0 4.5 - 10.5 K/uL 10/29/2023 8:18 AM TIRE SERVICER [facility] LABORATORY SERVICES - [facility] RBC 3.85(L) 4.50 - 5.40 M/uL 10/29/2023 8:18 AM TIRE SERVICER [facility] LABORATORY [facility] HEMOGLOBIN 11.6(L) 13.6 - 16.5 g/dL 10/29/2023 8:18 AM TIRE SERVICER [facility] LABORATORY [facility] HEMATOCRIT 35.7(L) 40.0 - 48.0 % 10/29/2023 8:18 AM TIRE SERVICER [facility] LABORATORY SERVICES [facility] MCV 92.6 82.0 - 99.0 fL 10/29/2023 8:18 AM TIRE SERVICER [facility] LABORATORY SERVICES - [facility] MCH 30.0 27.8 - 34.5 pg 10/29/2023 8:18 AM TIRE SERVICER [facility] LABORATORY SERVICES [facility] MCHC 32.4(L) 32.5 - 35.5 g/dL 10/29/2023 8:18 AM TIRE SERVICER [facility] LABORATORY SERVICES [facility] RDW 17.3(H) 11.5 - 14.5 % 10/29/2023 8:18 AM TIRE SERVICER [facility] LABORATORY SERVICES [facility] PLATELETS 255 160 - 420 K/uL 10/29/2023 8:18 AM TIRE SERVICER [facility] LABORATORY SERVICES [facility] MPV 9.9 8.7 - 12.7 fL 10/29/2023 8:18 AM TIRE SERVICER [facility] LABORATORY SERVICES [facility] NEUTROPHILS 61 % 10/29/2023 8:18 AM TIRE SERVICER [facility] LABORATORY SERVICES [facility] LYMPHOCYTES 22 % 10/29/2023 8:18 AM TIRE SERVICER [facility] LABORATORY SERVICES [facility] MONOCYTES 6 % 10/29/2023 8:18 AM TIRE SERVICER [facility] EOSINOPHILS 11 % 10/29/2023 8:18 AM TIRE SERVICER [facility] LABORATORY SERVICES [facility] BASOPHILS 1 % 10/29/2023 8:18 AM TIRE SERVICER [facility] LABORATORY SERVICES [facility] NEUTROPHIL ABSOLUTE 4.90 1.90 - 7.00 K/uL 10/29/2023 8:18 AM TIRE SERVICER [facility] LABORATORY SERVICES [facility] LYMPHOCYTE ABSOLUTE 1.70 0.70 - 4.50 K/uL 10/29/2023 8:18 AM TIRE SERVICER [facility] LABORATORY SERVICES [facility] MONOCYTE ABSOLUTE 0.50 0.10 - 1.30 K/uL 10/29/2023 8:18 AM TIRE SERVICER [facility] LABORATORY SERVICES [facility] EOSINOPHIL ABSOLUTE 0.80(H) 0.00 - 0.70 K/uL 10/29/2023 8:18 AM TIRE SERVICER [facility] LABORATORY SERVICES [facility] BASOPHILS ABSOLUTE 0.00 0.00 - 0.20 K/uL 10/29/2023 8:18 AM [facility] Blood Collection / Unknown 10/29/2023 3:20 AM TIRE SERVICER 10/29/2023 7:59 AM TIRE SERVICER Erik Chairez MD HEMATOLOGY ORDERABLES Final Resu lt [facility] CLIA# [id number] [place] [address] * (ABNORMAL) BASIC METABOLIC PANEL (10/29/2023 3:20 AM TIRE SERVICER) SODIUM 141 136 - 145 mmol/L 10/29/2023 8:38 AM [facility] POTASSIUM 4.5 3.4 - 5.1 mmol/L 10/29/2023 8:38 AM [facility] CHLORIDE 101 98 - 107 mmol/L 10/29/2023 8:38 AM [facility] CO2 28 22 - 29 mmol/L 10/29/2023 8:38 AM [facility] CALCIUM 10.2 8.6 - 10.4 mg/dL 10/29/2023 8:38 AM [facility] BUN 42(H) 6 - 20 mg/dL 10/29/2023 8:38 AM [facility] CREATININE 1.05 0.67 - 1.17 mg/dL 10/29/2023 8:38 AM [facility] Comment:The GFR result is no t clinically significant on patients <18 or >70 years of age. GLUCOSE 112(H) 74 - 99 mg/dL 10/29/2023 8:38 AM [facility] GFR >60 mL/min/1.7 3 sq meter 10/29/2023 8:38 AM [facility] Comment:eGFR calculated with 2020 CKD-EPI equation. Vegetarian diet, extremely high or low muscle mass, and may affect results. Cystatin C with Glomerular Filtration Rate is a suitable alternative for these patients. ANION GAP 12 8 - 16 mmol/L 10/29/2023 8:38 AM TIRE SERVICER [facility] LABORATORY SERVICES [facility] Blood Collection / Unknown 10/29/2023 3:20 AM TIRE SERVICER 10/29/2023 7:59 AM TIRE SERVICER Erik Chairez MD CHEMISTRY ORDERABLES Final Resul t [facility] LABORATORY SERVICES [facility] CLIA# [id number] [place] [address] documented in this encounter Visit Diagnoses Not on filedocumented in this encounter Additional Health Concerns Infection Onset Date Last Indicated Resolved Time CRE-CP Comment:10/09/23 Klebsiella pneumoniae, Sputum 10/09/2023 10/09/2023 05/28/2024 2:37 PM C 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
--- OUTSIDE RECORDS SUMMARY | 2025-01-27 13:45 | XMS_ITS | Encounter Summary ---
Author Organization [facility] Address [address] [place] [address] Care Team Providers Care Associate Field Service Engineer Name Role Phone Unavailable Primary Care Provider Unavailabl e Encounter Details Date Type Department Care Team (Late st Contact Info) Description 10/13/2023 Lab Requisition [facility] Laboratory Services [address] [place] [address] [place] [address] [place] [address] Social History Tobacco Use Types Packs/Day Years Used Date Smoking Tobacco: Never Assessed Sex and Gender Information Value Date Recorded Sex Assigned at Not on file Legal Sex Male 9:18 AM CLINICAL REHAB LIAISON Gender Identity Not on file Sexual Orientation Not on file documented as of this encounter Plan of Treatment Not on file documented as of this encounter Procedures Procedure Name Priority Date/Time Associated Diagnosis Comments MAGNESIUM LEVEL Routine 10/13/2023 4:00 AM CLINICAL REHAB LIAISON RENAL FUNCTION PANEL Routine 10/13/2023 4:00 AM CLINICAL REHAB LIAISON documented in this encounter Results * MAGNESIUM LEVEL (10/13/2023 4:00 AM CLINICAL REHAB LIAISON) MAGNESIUM 2.3 1.6 - 2.6 mg/dL 10/13/2023 5:59 AM CLINICAL REHAB LIAISON [facility] [employer] [facility] Blood Collection / Unknown 10/13/2023 4:00 AM CLINICAL REHAB LIAISON 10/13/2023 5:20 AM CLINICAL REHAB LIAISON us Erik Chairez MD CHEMISTRY ORDERABLES [facility]ul t [id number] [place] [address] * (ABNORMAL) RENAL FUNCTION PANEL (10/13/2023 4:00 AM CLINICAL REHAB LIAISON) SODIUM 138 136 - 145 mmol/L 10/13/2023 5:58 AM [facility] POTASSIUM 4.5 3.4 - 5.1 mmol/L 10/13/2023 5:58 AM [facility] CHLORIDE 100 98 - 107 mmol/L 10/13/2023 5:58 AM [facility] CO2 25 22 - 29 mmol/L 10/13/2023 5:58 AM [facility] CALCIUM 9.6 8.6 - 10.4 mg/dL 10/13/2023 5:58 AM [facility] BUN 39(H) 6 - 20 mg/dL 10/13/2023 5:58 AM [facility] CREATININE 1.09 0.67 - 1.17 mg/dL 10/13/2023 5:58 AM [facility] Comment:The GFR result is no t clinically significant on patients <18 or >70 years of age. GLUCOSE 100(H) 74 - 99 mg/dL 10/13/2023 5:58 AM [facility] ALBUMIN 3.5 3.5 - 5.2 g/dL 10/13/2023 5:58 AM [facility] PHOSPHORUS 4.8(H) 2.5 - 4.5 mg/dL 10/13/2023 5:58 AM [facility] GFR >60 mL/min/1.7 3 sq meter 10/13/2023 5:58 AM [facility] Comment:eGFR calculated with 2020 CKD-EPI equation. Vegetarian diet, extremely high or low muscle mass, and may affect results. Cystatin C with Glomerular Filtration Rate is a suitable alternative for these patients. 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
--- OUTSIDE RECORDS SUMMARY | 2025-01-27 13:45 | XMS_ITS | Encounter Summary ---
Author Organization [facility] Address [address] [place] [address] Care Team Providers Care Network Support Specialist Name Role Phone Unavailable Primary Care Provider Unavailabl e Encounter Details Date Type Department Care Team (Late st Contact Info) Description 11/10/2023 Lab Requisition [facility] Laboratory Services [address] [place] [address] [place] [address] [place] [address] Social History Tobacco Use Types Packs/Day Years Used Date Smoking Tobacco: Never Assessed Sex and Gender Information Value Date Recorded Sex Assigned at Not on file Legal Sex Male 9:18 AM FIRE PREVENTION OFFICER Gender Identity Not on file Sexual Orientation Not on file documented as of this encounter Plan of Treatment Not on file documented as of this encounter Procedures Procedure Name Priority Date/Time Associated Diagnosis Comments CBC WITH DIFFERENTIAL Routine 11/10/2023 6:10 AM FIRE PREVENTION OFFICER BASIC METABOLIC PANEL Routine 11/10/2023 6:10 AM FIRE PREVENTION OFFICER documented in this encounter Results * (ABNORMAL) CBC WITH DIFFERENTIAL (11/10/2023 6:10 AM FIRE PREVENTION OFFICER) WBC 7.9 4.5 - 10.5 K/uL 11/10/2023 6:55 AM FIRE PREVENTION OFFICER [facility] SERVICES - [facility] RBC 3.65(L) 4.50 - 5.40 M/uL 11/10/2023 6:55 AM FIRE PREVENTION OFFICER [facility]ORY [facility] HEMOGLOBIN 10.8(L) 13.6 - 16.5 g/dL 11/10/2023 6:55 AM FIRE PREVENTION OFFICER [facility] - [facility] HEMATOCRIT 33.6(L) 40.0 - 48.0 % 11/10/2023 6:55 AM FIRE PREVENTION OFFICER [facility] LABORATORY SERVICES [facility] MCV 92.0 82.0 - 99.0 fL 11/10/2023 6:55 AM FIRE PREVENTION OFFICER [facility] LABORATORY SERVICES [facility] MCH 29.7 27.8 - 34.5 pg 11/10/2023 6:55 AM FIRE PREVENTION OFFICER [facility]ORATORY SERVICES [facility] MCHC 32.2(L) 32.5 - 35.5 g/dL 11/10/2023 6:55 AM FIRE PREVENTION OFFICER [facility]AT[facility] SERVICES [facility] RDW 17.0(H) 11.5 - 14.5 % 11/10/2023 6:55 AM FIRE PREVENTION OFFICER [facility]ORATORY SERVICES [facility] PLATELETS 251 160 - 420 K/uL 11/10/2023 6:55 AM FIRE PREVENTION OFFICER [facility] MPV 9.2 8.7 - 12.7 fL 11/10/2023 6:55 AM FIRE PREVENTION OFFICER [facility]ORATORY SERVICES [facility] NEUTROPHILS 62 % 11/10/2023 6:55 AM FIRE PREVENTION OFFICER [facility]ORATORY SERVICES [facility] LYMPHOCYTES 22 % 11/10/2023 6:55 AM FIRE PREVENTION OFFICER [facility] MONOCYTES 5 % 11/10/2023 6:55 AM FIRE PREVENTION OFFICER [facility] EOSINOPHILS 10 % 11/10/2023 6:55 AM FIRE PREVENTION OFFICER [facility] BASOPHILS 1 % 11/10/2023 6:55 AM FIRE PREVENTION OFFICER [facility] LABORATORY SERVICES [facility] NEUTROPHIL ABSOLUTE 4.90 1.90 - 7.00 K/uL 11/10/2023 6:55 AM FIRE PREVENTION OFFICER [facility] LABORATORY SERVICES [facility] LYMPHOCYTE ABSOLUTE 1.70 0.70 - 4.50 K/uL 11/10/2023 6:55 AM FIRE PREVENTION OFFICER [facility] LABORATORY SERVICES [facility] MONOCYTE ABSOLUTE 0.40 0.10 - 1.30 K/uL 11/10/2023 6:55 AM FIRE PREVENTION OFFICER [facility] LABORATORY SERVICES [facility] EOSINOPHIL ABSOLUTE 0.80(H) 0.00 - 0.70 K/uL 11/10/2023 6:55 AM FIRE PREVENTION OFFICER [facility] BASOPHILS ABSOLUTE 0.10 0.00 - 0.20 K/uL 11/10/2023 6:55 AM [facility] Blood 11/10/2023 6:10 AM FIRE PREVENTION OFFICER 11/10/2023 6:41 AM FIRE PREVENTION OFFICER Erik Chairez MD HEMATOLOGY ORDERABLES Final Resu lt [facility] CLIA# [id number] [place] [address] * (ABNORMAL) BASIC METABOLIC PANEL (11/10/2023 6:10 AM FIRE PREVENTION OFFICER) SODIUM 139 136 - 145 mmol/L 11/10/2023 7:14 AM [facility] POTASSIUM 4.2 3.4 - 5.1 mmol/L 11/10/2023 7:14 AM [facility] CHLORIDE 103 98 - 107 mmol/L 11/10/2023 7:14 AM [facility] CO2 26 22 - 29 mmol/L 11/10/2023 7:14 AM [facility] CALCIUM 9.4 8.6 - 10.4 mg/dL 11/10/2023 7:14 AM [facility] BUN 39(H) 6 - 20 mg/dL 11/10/2023 7:14 AM [facility] CREATININE 0.98 0.67 - 1.17 mg/dL 11/10/2023 7:14 AM [facility] Comment:The GFR result is no t clinically significant on patients <18 or >70 years of age. GLUCOSE 111(H) 74 - 99 mg/dL 11/10/2023 7:14 AM [facility] GFR >60 mL/min/1.7 3 sq meter 11/10/2023 7:14 AM [facility] Comment:eGFR calculated with 2020 CKD-EPI equation. Vegetarian diet, extremely high or low muscle mass, and may affect results. Cystatin C with Glomerular Filtration Rate is a suitable alternative for these patients. ANION GAP 10 8 - 16 mmol/L 11/10/2023 7:14 AM FIRE PREVENTION OFFICER [facility] LABORATORY SERVICES [facility] Blood 11/10/2023 6:10 AM FIRE PREVENTION OFFICER 11/10/2023 6:41 AM FIRE PREVENTION OFFICER Erik Chairez MD CHEMISTRY ORDERABLES Final Resul t [facility] LABORATORY [facility] CLIA# [id number] [address] [place] [address] documented in this encounter Visit Diagnoses Not on filedocumented in this encounter Additional Health Concerns Infection Onset Date Last Indicated Resolved Time CRE-CP Comment:10/09/23 Klebsiella pneumoniae, Sputum 10/09/2023 10/09/2023 05/28/2024 2:37 PM C DT 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
--- OUTSIDE RECORDS SUMMARY | 2025-01-27 13:45 | XMS_ITS | Encounter Summary ---
Author Organization [facility] Address [address] [place] [address] Care Team Providers Care Chassis Driver Name Role Phone Unavailable Primary Care Provider Unavailabl e Encounter Details Date Type Department Care Team (Late st Contact Info) Description 11/07/2023 Lab Requisition [facility] Laboratory Services [address] [place] [address] [place] [id number] [place] [address] Social History Tobacco Use Types Packs/Day Years Used Date Smoking Tobacco: Never Assessed Sex and Gender Information Value Date Recorded Sex Assigned at Not on file Legal Sex Male 9:18 AM WILLOW WORKER Gender Identity Not on file Sexual Orientation Not on file documented as of this encounter Plan of Treatment Not on file documented as of this encounter Procedures Procedure Name Priority Date/Time Associated Diagnosis Comments CBC WITH DIFFERENTIAL Routine 11/07/2023 4:30 AM WILLOW WORKER BASIC METABOLIC PANEL Routine 11/07/2023 4:30 AM WILLOW WORKER documented in this encounter Results * (ABNORMAL) CBC WITH DIFFERENTIAL (11/07/2023 4:30 AM WILLOW WORKER) WBC 9.4 4.5 - 10.5 K/uL 11/07/2023 8:10 AM WILLOW WORKER [facility] - [facility] RBC 4.06(L) 4.50 - 5.40 M/uL 11/07/2023 8:10 AM WILLOW WORKER [facility] HEMOGLOBIN 11.9(L) 13.6 - 16.5 g/dL 11/07/2023 8:10 AM WILLOW WORKER [facility] HEMATOCRIT 37.1(L) 40.0 - 48.0 % 11/07/2023 8:10 AM WILLOW WORKER [facility] LABORAT[facility] SERVICES [facility] MCV 91.5 82.0 - 99.0 fL 11/07/2023 8:10 AM WILLOW WORKER [facility] SERVICES - [facility] MCH 29.4 27.8 - 34.5 pg 11/07/2023 8:10 AM WILLOW WORKER [facility]ORAT[facility] SERVICES [facility] MCHC 32.1(L) 32.5 - 35.5 g/dL 11/07/2023 8:10 AM WILLOW WORKER [facility] SERVICES [facility] RDW 16.9(H) 11.5 - 14.5 % 11/07/2023 8:10 AM WILLOW WORKER [facility] SERVICES [facility] PLATELETS 270 160 - 420 K/uL 11/07/2023 8:10 AM WILLOW WORKER [facility] SERVICES [facility] MPV 10.0 8.7 - 12.7 fL 11/07/2023 8:10 AM WILLOW WORKER [facility] SERVICES [facility] NEUTROPHILS 61 % 11/07/2023 8:10 AM WILLOW WORKER [facility]OR[facility] SERVICES [facility] LYMPHOCYTES 21 % 11/07/2023 8:10 AM WILLOW WORKER [facility] MONOCYTES 6 % 11/07/2023 8:10 AM WILLOW WORKER [facility] EOSINOPHILS 11 % 11/07/2023 8:10 AM WILLOW WORKER [facility] BASOPHILS 1 % 11/07/2023 8:10 AM WILLOW WORKER [facility]OR[facility] SERVICES [facility] NEUTROPHIL ABSOLUTE 5.70 1.90 - 7.00 K/uL 11/07/2023 8:10 AM WILLOW WORKER [facility]ORAT[facility] SERVICES [facility] LYMPHOCYTE ABSOLUTE 2.00 0.70 - 4.50 K/uL 11/07/2023 8:10 AM WILLOW WORKER [facility] MONOCYTE ABSOLUTE 0.60 0.10 - 1.30 K/uL 11/07/2023 8:10 AM WILLOW WORKER [facility]ORAT[facility] SERVICES [facility] EOSINOPHIL ABSOLUTE 1.00(H) 0.00 - 0.70 K/uL 11/07/2023 8:10 AM WILLOW WORKER [facility]ORAT[facility] SERVICES [facility] BASOPHILS ABSOLUTE 0.10 0.00 - 0.20 K/uL 11/07/2023 8:10 AM [facility] Blood 11/07/2023 4:30 AM WILLOW WORKER 11/07/2023 8:06 AM WILLOW WORKER us Erik Chairez MD HEMATOLOGY ORDERABLES Final Resu lt [facility] CLIA# [id number] [place] [address] * (ABNORMAL) BASIC METABOLIC PANEL (11/07/2023 4:30 AM WILLOW WORKER) SODIUM 137 136 - 145 mmol/L 11/07/2023 8:41 AM [facility] POTASSIUM 4.2 3.4 - 5.1 mmol/L 11/07/2023 8:41 AM [facility] CHLORIDE 100 98 - 107 mmol/L 11/07/2023 8:41 AM [facility] CO2 22 22 - 29 mmol/L 11/07/2023 8:41 AM [facility] CALCIUM 9.9 8.6 - 10.4 mg/dL 11/07/2023 8:41 AM [facility] BUN 41(H) 6 - 20 mg/dL 11/07/2023 8:41 AM [facility] CREATININE 1.03 0.67 - 1.17 mg/dL 11/07/2023 8:41 AM [facility] Comment:The GFR result is no t clinically significant on patients <18 or >70 years of age. GLUCOSE 109(H) 74 - 99 mg/dL 11/07/2023 8:41 AM [facility] GFR >60 mL/min/1.7 3 sq meter 11/07/2023 8:41 AM [facility] Comment:eGFR calculated with 2020 CKD-EPI equation. Vegetarian diet, extremely high or low muscle mass, and may affect results. Cystatin C with Glomerular Filtration Rate is a suitable alternative for these patients. 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
--- OUTSIDE RECORDS SUMMARY | 2025-01-27 13:45 | XMS_ITS | Encounter Summary ---
Author Organization [facility] Address [address] [place] [address] Care Team Providers Care Composite Mechanic Name Role Phone Unavailable Primary Care Provider Unavailabl e Encounter Details Date Type Department Care Team (Late st Contact Info) Description 11/05/2023 Lab Requisition [facility] Laboratory Services [address] [address] [place] [address] [place] [address] Social History Tobacco Use Types Packs/Day Years Used Date Smoking Tobacco: Never Assessed Sex and Gender Information Value Date Recorded Sex Assigned at Not on file Legal Sex Male 9:18 AM CREDIT INVESTIGATOR Gender Identity Not on file Sexual Orientation Not on file documented as of this encounter Plan of Treatment Not on file documented as of this encounter Procedures Procedure Name Priority Date/Time Associated Diagnosis Comments DIFFERENTIAL, MANUAL Routine 11/05/2023 3:30 AM CREDIT INVESTIGATOR CBC WITH DIFFERENTIAL Routine 11/05/2023 3:30 AM CREDIT INVESTIGATOR documented in this encounter Results * MANUAL DIFFERENTIAL (11/05/2023 3:30 AM CREDIT INVESTIGATOR) PLATELET EST. Consistent w Count 11/05/2023 6:05 AM CREDIT INVESTIGATOR [facility] RBC MORPHOLOGY Normal 11/05/2023 6:05 AM CREDIT INVESTIGATOR [facility] Blood Collection / Unknown 11/05/2023 3:30 AM CREDIT INVESTIGATOR 11/05/2023 5:05 AM CREDIT INVESTIGATOR Erik Chairez MD HEMATOLOGY ORDERABLES COM Final Result [facility] CLIA# [id number] [place] [address] * (ABNORMAL) CBC WITH DIFFERENTIAL (11/05/2023 3:30 AM CREDIT INVESTIGATOR) [facility] WBC 7.5 4.5 - 10.5 K/uL 11/05/2023 6:05 AM [facility] RBC 3.81(L) 4.50 - 5.40 M/uL 11/05/2023 6:05 AM [facility] HEMOGLOBIN 11.9(L) 13.6 - 16.5 g/dL 11/05/2023 6:05 AM [facility] HEMATOCRIT 35.6(L) 40.0 - 48.0 % 11/05/2023 6:05 AM [facility] [employer] [facility] MCV 93.5 82.0 - 99.0 fL 11/05/2023 6:05 AM [facility] [employer] [facility] MCH 31.2 27.8 - 34.5 pg 11/05/2023 6:05 AM [facility] [employer] [facility] MCHC 33.3 32.5 - 35.5 g/dL 11/05/2023 6:05 AM [facility] [employer] [facility] RDW 17.0(H) 11.5 - 14.5 % 11/05/2023 6:05 AM [facility] [employer] [facility] PLATELETS 243 160 - 420 K/uL 11/05/2023 6:05 AM [facility] [employer] [facility] MPV 9.4 8.7 - 12.7 fL 11/05/2023 6:05 AM [facility] NEUTROPHILS 63 % 11/05/2023 6:05 AM CREDIT INVESTIGATOR [facility] [employer] [facility] LYMPHOCYTES 23 % 11/05/2023 6:05 AM CREDIT INVESTIGATOR [facility] LABORATORY [facility] MONOCYTES 5 % 11/05/2023 6:05 AM [facility] EOSINOPHILS 9 % 11/05/2023 6:05 AM CREDIT INVESTIGATOR [facility] LABORATORY [facility] BASOPHILS 1 % 11/05/2023 6:05 AM CREDIT INVESTIGATOR [facility] LABORATORY [facility] NEUTROPHIL ABSOLUTE 4.70 1.90 - 7.00 K/uL 11/05/2023 6:05 AM CREDIT INVESTIGATOR [facility] LABORATORY [facility] LYMPHOCYTE ABSOLUTE 1.70 0.70 - 4.50 K/uL 11/05/2023 6:05 AM CREDIT INVESTIGATOR [facility] LABORATORY [facility] MONOCYTE ABSOLUTE 0.40 0.10 - 1.30 K/uL 11/05/2023 6:05 AM CREDIT INVESTIGATOR [facility] LABORATORY [facility] EOSINOPHIL ABSOLUTE 0.70 0.00 - 0.70 K/uL 11/05/2023 6:05 AM CREDIT INVESTIGATOR [facility] BASOPHILS ABSOLUTE 0.00 0.00 - 0.20 K/uL 11/05/2023 6:05 AM CREDIT INVESTIGATOR [facility] LABORATORY [facility] Blood Collection / Unknown 11/05/2023 3:30 AM CREDIT INVESTIGATOR 11/05/2023 5:05 AM CREDIT INVESTIGATOR Erik Chairez MD HEMATOLOGY ORDERABLES Final Resu lt [facility] CLIA# [id number] [place] [address] documented in this encounter Visit Diagnoses Not on filedocumented in this encounter Additional Health Concerns Infection Onset Date Last Indicated Resolved Time CRE-CP Comment: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
--- OUTSIDE RECORDS SUMMARY | 2025-01-27 13:45 | XMS_ITS | Encounter Summary ---
Author Organization [facility] Address [address] [place] [address] Care Team Providers Care Junior Project Coordinator Name Role Phone Unavailable Primary Care Provider Unavailabl e Encounter Details Date Type Department Care Team (Late st Contact Info) Description 10/23/[address] [facility] Laboratory Services [address] [place] [address] [place] [address] [place] [address] Social History Tobacco Use Types Packs/Day Years Used Date Smoking Tobacco: Never Assessed Sex and Gender Information Value Date Recorded Sex Assigned at Not on file Legal Sex Male 9:18 AM DOCUMENT ANALYST Gender Identity Not on file Sexual Orientation Not on file documented as of this encounter Plan of Treatment Not on file documented as of this encounter Procedures Procedure Name Priority Date/Time Associated Diagnosis Comments CBC WITH DIFFERENTIAL Routine 10/23/2023 2:45 AM DOCUMENT ANALYST BASIC METABOLIC PANEL Routine 10/23/2023 2:45 AM DOCUMENT ANALYST documented in this encounter Results * (ABNORMAL) CBC WITH DIFFERENTIAL (10/23/2023 2:45 AM DOCUMENT ANALYST) WBC 12.7(H) 4.5 - 10.5 K/uL 10/23/2023 11:15 AM DOCUMENT ANALYST [facility] SERVICES - [facility] RBC 4.12(L) 4.50 - 5.40 M/uL 10/23/2023 11:15 AM DOCUMENT ANALYST [facility] - [facility] HEMOGLOBIN 12.2(L) 13.6 - 16.5 g/dL 10/23/2023 11:15 AM DOCUMENT ANALYST [facility] SERVICES [facility] HEMATOCRIT 38.7(L) 40.0 - 48.0 % 10/23/2023 11:15 AM DOCUMENT ANALYST [facility] SERVICES - [facility] MCV 94.0 82.0 - 99.0 fL 10/23/2023 11:15 AM DOCUMENT ANALYST [facility] SERVICES [facility] MCH 29.7 27.8 - 34.5 pg 10/23/2023 11:15 AM DOCUMENT ANALYST [facility] SERVICES [facility] MCHC 31.6(L) 32.5 - 35.5 g/dL 10/23/2023 11:15 AM DOCUMENT ANALYST [facility] SERVICES [facility] RDW 17.3(H) 11.5 - 14.5 % 10/23/2023 11:15 AM DOCUMENT ANALYST [facility] SERVICES [facility] PLATELETS 264 160 - 420 K/uL 10/23/2023 11:15 AM DOCUMENT ANALYST [facility] SERVICES [facility] MPV 9.6 8.7 - 12.7 fL 10/23/2023 11:15 AM DOCUMENT ANALYST [facility] SERVICES [facility] NEUTROPHILS 67 % 10/23/2023 11:15 AM DOCUMENT ANALYST [facility] SERVICES [facility] LYMPHOCYTES 20 % 10/23/2023 11:15 AM DOCUMENT ANALYST [facility] SERVICES [facility] MONOCYTES 5 % 10/23/2023 11:15 AM DOCUMENT ANALYST [facility] SERVICES [facility] EOSINOPHILS 8 % 10/23/2023 11:15 AM DOCUMENT ANALYST [facility] SERVICES [facility] BASOPHILS 1 % 10/23/2023 11:15 AM DOCUMENT ANALYST [facility] SERVICES [facility] NEUTROPHIL ABSOLUTE 8.50(H) 1.90 - 7.00 K/uL 10/23/2023 11:15 AM DOCUMENT ANALYST [facility] SERVICES [facility] LYMPHOCYTE ABSOLUTE 2.50 0.70 - 4.50 K/uL 10/23/2023 11:15 AM DOCUMENT ANALYST [facility] SERVICES [facility] MONOCYTE ABSOLUTE 0.60 0.10 - 1.30 K/uL 10/23/2023 11:15 AM DOCUMENT ANALYST [facility] SERVICES [facility] EOSINOPHIL ABSOLUTE 1.00(H) 0.00 - 0.70 K/uL 10/23/2023 11:15 AM DOCUMENT ANALYST [facility] SERVICES [facility] BASOPHILS ABSOLUTE 0.10 0.00 - 0.20 K/uL 10/23/2023 11:15 AM [facility] Blood Collection / Unknown 10/23/2023 2:45 AM DOCUMENT ANALYST 10/23/2023 10:44 AM DOCUMENT ANALYST Erik Chairez MD HEMATOLOGY ORDERABLES Final Resu lt [facility] CLIA# [id number] [place] [address] * (ABNORMAL) BASIC METABOLIC PANEL (10/23/2023 2:45 AM DOCUMENT ANALYST) SODIUM 139 136 - 145 mmol/L 10/23/2023 11:42 AM [facility] POTASSIUM 4.5 3.4 - 5.1 mmol/L 10/23/2023 11:42 AM [facility] CHLORIDE 100 98 - 107 mmol/L 10/23/2023 11:42 AM [facility] CO2 24 22 - 29 mmol/L 10/23/2023 11:42 AM [facility] CALCIUM 9.6 8.6 - 10.4 mg/dL 10/23/2023 11:42 AM [facility] BUN 36(H) 6 - 20 mg/dL 10/23/2023 11:42 AM [facility] CREATININE 0.95 0.67 - 1.17 mg/dL 10/23/2023 11:42 AM [facility] Comment:The GFR result is no t clinically significant on patients <18 or >70 years of age. GLUCOSE 86 74 - 99 mg/dL 10/23/2023 11:42 AM [facility] GFR >60 mL/min/1.7 3 sq meter 10/23/2023 11:42 AM [facility] Comment:eGFR calculated with 2020 CKD-EPI equation. Vegetarian diet, extremely high or low muscle mass, and may affect results. Cystatin C with Glomerular Filtration Rate is a suitable alternative for these patients. ANION GAP 15 8 - 16 mmol/L 10/23/2023 11:42 AM DOCUMENT ANALYST [facility] Blood Collection / Unknown 10/23/2023 2:45 AM DOCUMENT ANALYST 10/23/2023 10:44 AM DOCUMENT ANALYST Erik Chairez MD CHEMISTRY ORDERABLES Final Resul t [facility] CLIA# [id number] [place] [address] documented in this encounter Visit Diagnoses Not on filedocumented in this encounter Additional Health Concerns Infection Onset Date Last Indicated Resolved Time CRE-CP Comment:10/09/23 Klebsiella pneumoniae, Sputum 10/09/2023 10/09/2023 05/28/2024 2:37 PM C DT 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
--- OUTSIDE RECORDS SUMMARY | 2025-01-27 13:45 | XMS_ITS | Encounter Summary ---
Author Organization [facility] Address [address] [place] [address] Care Team Providers Care Home Maker Name Role Phone Unavailable Primary Care Provider Unavailabl e Encounter Details Date Type Department Care Team (Late st Contact Info) Description 10/10/2023 Lab Requisition [facility] Laboratory Services [address] [place] [address] [place] [address] [place] [address] Social History Tobacco Use Types Packs/Day Years Used Date Smoking Tobacco: Never Assessed Sex and Gender Information Value Date Recorded Sex Assigned at Not on file Legal Sex Male 9:18 AM REAL ESTATE LISTING CONSULTANT Gender Identity Not on file Sexual Orientation Not on file documented as of this encounter Plan of Treatment Not on file documented as of this encounter Procedures Procedure Name Priority Date/Time Associated Diagnosis Comments CARBAPENEM RESISTANT ORGANISM Routine 10/09/2023 9:30 PM REAL ESTATE LISTING CONSULTANT SPUTUM CULTURE WITH GRAM STAIN Routine 10/09/2023 9:30 PM REAL ESTATE LISTING CONSULTANT documented in this encounter Results * (ABNORMAL) CARBAPENEM RESISTANT ORGANISM (10/09/2023 9:30 PM REAL ESTATE LISTING CONSULTANT) ORGANISM TESTED Klebsiella pneumoniae 10/12/2023 4:25 PM REAL ESTATE LISTING CONSULTANT [facility] Carbapenem Resistance Gene Detected(A) Not Detected 10/12/2023 4:25 PM REAL ESTATE LISTING CONSULTANT [facility] KPC (carbapenem-re sistance gene) by PCR DETECTED(A) Not Detected 10/12/2023 4:25 PM REAL ESTATE LISTING CONSULTANT [facility] Sputum Collection / Unknown 10/09/2023 9:30 PM REAL ESTATE LISTING CONSULTANT 10/10/2023 9:54 AM REAL ESTATE LISTING CONSULTANT [facility] - 10/12/2023 4:25 PM REAL ESTATE LISTING CONSULTANT This isolate is a carbapenem-resistant Organism (MECHANICAL MAINTENANCE ENGINEER) AND is a carbapenamase-producer assistant. If inpatient, place patient in Enhanced Contact Isolation. The [employer] Xpert Carba-R PCR assay detects the presence of KPC, NDM, VIM, OXA- 48, and IMP gene sequences that induce carbapenemase production in gram negative bacteria. This test was performed using an FDA approved screening methodology. Erik Chairez MD MICROBIOLOGY - GENERAL ORDERABLE S Final Result [facility]# [id number] [address] [place] [address] * (ABNORMAL) SPUTUM CULTURE WITH GRAM STAIN (10/09/2023 9:30 PM REAL ESTATE LISTING CONSULTANT) CULTURE KLEBSIELLA PNEUMONIAE(A) LUCINA MCG/ML 10/17/2023 10:47 AM REAL ESTATE LISTING CONSULTANT [facility] [employer] [facility] Comment: This isolate is a Carbapenem-Resistant Organism AND is a carbapenemase producer assistant (MECHANICAL MAINTENANCE ENGINEER-CP). If inpatient, place patient in Enhanced Contact Isolation. Multiple drug resistant organism (MDRO). CULTURE Absent Normal Shahrzad LUCINA MCG/ML 10/17/2023 10:47 AM [facility] [employer] [facility] GRAM STAIN Non diagnostic pattern LUCINA MCG/ML 10/17/2023 10:47 AM [facility] GRAM STAIN No WBC observed 10/17/2023 10:47 AM [facility] [employer] [facility] Sputum Collection / Unknown 10/09/2023 9:30 PM REAL ESTATE LISTING CONSULTANT 10/10/2023 9:54 AM REAL ESTATE LISTING CONSULTANT [facility] [employer] [facility] - 10/17/2023 10:47 AM REAL ESTATE LISTING CONSULTANT Results called to Kelly Suarez RN, Rosalie [...] Edited Result - Final Performing Organization Address City/State/[facility] Co de Phone Number [facility]# [id number] [address] [place] [address] documented in this encounter Visit Diagnoses Not on filedocumented in this encounter Additional Health Concerns Infection Onset Date Last Indicated Resolved Time CRE-CP Comment:10/09/23 Klebsiella pneumoniae, Sputum 10/09/2023 10/09/2023 05/28/2024 2:37 PM C DT Multi Drug Resistant Organis m (MDRO) Comment:10/09/23 Klebsiella pneumoniae, CRE-CP organism, Sputum 10/09/2023 10/09/2023 MECHANICAL MAINTENANCE ENGINEER-CP Comment:10/09/23 Klebsiella pneumoniae, Sputum 10/09/2023 05/28/2024 documented as of this encounter
--- OUTSIDE RECORDS SUMMARY | 2025-01-27 13:45 | XMS_ITS | Clinical Summary ---
Author Organization [facility] Address [address] [place] [address] Phone Care Team Providers Care Maintenance Mechanic Engine Name Role Phone Unavailable Primary Care Provider Unavailabl e Social History Tobacco Use Types Packs/Day Years Used Date Smoking Tobacco: Never Assessed Sex and Gender Information Value Date Recorded Sex Assigned at Not on file Legal Sex Male 9:18 AM ROOF SHINGLER Gender Identity Not on file Sexual Orientation [...] Klebsiella pneumoniae, CRE-CP organism, Sputum 10/09/2023 10/09/2023 SUPERVISOR DENTAL LABORATORY-CP Comment:10/09/23 Klebsiella pneumoniae, Sputum 10/09/2023 05/28/[address] [place] [address]
--- OUTSIDE RECORDS SUMMARY | 2025-01-27 13:45 | XMS_ITS | Referral Summary ---
Author Organization [facility] Address [address] [place] [address] Care Team Providers Care Vp Treasurer Name Role Phone Demond Stark MD Primary Care Provider [phone] Encounters Date Type Department Care Team Description 01/19/2025 Telephone [facility] Medical [facility] Cardiology [address] [place] [address] [place] [phone] Mando Dumont MD 12/21/2024 Results Follow-Up [facility] Cardiology [address] [place] [address] [address] [place] [phone] Mando Dumont MD 12/17/2024 2:00 PM CDT Ancillary Procedure [facility] Cardiology [address] [place] [address] [address] [place] [phone] Persistent atrial fibrillation (HCC) 11/09/2024 Telephone [facility] Cardiology [address] [place] [address] [address] [place] [phone] Mando Dumont MD 11/05/2024 Telephone [facility] Cardiology [address] [place] [address] [address] [place] [phone] Mando Dumont MD cardiac clearance; samples from Last 3 Months Allergies Active Allergy Reactions Criticality Noted Date Comments Diphenhydramine Hallucinations Medium 11/27/2023 Was not able to sleep and made him more anxious Lisinopril Cough Low Reaction: Cough, Pravastatin Muscle pain Medium Reaction: Muscular Pain, Quetiapine Other (See comments) Low 06/05/2024 Hallucinations, insomnia Simvastatin Muscle pain Medium Reaction: Muscular Pain, Edifxgt-Xgg-Bwm Reductase Inhibitors Muscle pain,Other (See comments) Medium 10/03/2015 Pt reports leg weakness/heavine ss when taking zocor. Medications levothyroxine (SYNTHROID) 112 mcg tablet Take 1 tablet (112 mcg total) by mouth carpenter mold before breakfast Active aspirin 81 mg tablet [...] twice daily for 5 days 4 Active losartan (COZAAR) 25 mg tablet Take 1 tablet (25 mg total) by mouth daily 30 tablet 11 5 01/20/20 26 Active Active Problems Problem Noted Date Diagnosed Date Dysfunction of right eustachian tube 08/31/2024 Assessment & Plan (10/05/2024 10:54 AM LABOR SUPERVISOR): Avoid ear cleaning techniques Avoid water to ears Follow up in 9 months for right ear tube check, earlier with ear drainage Assessment & Plan (08/31/2024 11:40 AM LABOR SUPERVISOR): Right myringotomy with T-tube placement Risks and [...] 07/09/2024 Assessment & Plan (08/31/2024 11:39 AM LABOR SUPERVISOR): Right myringotomy with T-tube placement Risks and [...] 08/07/2017 Assessment & Plan (08/07/2017 6:01 PM LABOR SUPERVISOR): Has had elevated LFTs and a fatty liver. Bradycardia 08/07/2017 Assessment & Plan (08/07/2017 5:58 PM LABOR SUPERVISOR): Asymptomatic bradycardia, on low-dose metoprolol which may eventually need to be reduced or discontinued. Traumatic subdural hematoma of neuraxis 10/15/19 17 Overview (12/28/2016): Traumatic subdural hematoma without loss of consciousness, sequela Statin intolerance 10/15/2016 Overview (12/28/2016): Statin intolerance Essential hypertension 07/20/2013 Overview (12/28/2016): Hypertension Assessment & Plan (08/07/2017 5:57 PM LABOR SUPERVISOR): Hypertension is not under good control; reviewing [...] HYPERLIPIDEMIA Assessment & Plan (08/07/2017 6:03 PM LABOR SUPERVISOR): Has refued further attempts at statin therapy. History of coronary artery bypass surgery 2009 Overview (12/26/2016): AORTOCORONARY BYPASS Coronary arteriosclerosis in [place] artery 12/20 Overview (08/07/2017): CRNRY ATHRSCL NATVE VSSL 2009: Non STEMI and CABG x3 (HOBSON to the LAD, sequential RA to OM and D1) Assessment & Plan (08/07/2017 6:00 PM LABOR SUPERVISOR): 2009: Non STEMI and CABG x3 (HOBSON [...] 03/04/2018 Assessment & Plan (08/07/2017 5:58 PM LABOR SUPERVISOR): Patient is going to have knee surgery [...] on file Legal Sex Male 8:49 AM LABOR SUPERVISOR Gender Identity Not on file Sexual Orientation Not on file Last Filed Vital Signs Vital Sign Reading Time Taken Comments Blood Pressure 160/88 09/22/2024 1:04 PM LABOR SUPERVISOR Pulse 83 09/22/2024 1:04 PM LABOR SUPERVISOR Temperature 36.3 C (97.4 F) 09/22/2024 1:04 PM LABOR SUPERVISOR Respiratory Rate 18 09/22/2024 1:04 PM LABOR SUPERVISOR Oxygen Saturation 97% 09/22/2024 1:04 PM LABOR SUPERVISOR Inhaled Oxygen Concentration - - Weight 97.5 kg (214 lb 15.2 oz) 09/22/2024 9:41 AM LABOR SUPERVISOR Height 182.9 cm (6') 09/22/2024 9:41 AM LABOR SUPERVISOR Body Mass Index 29.15 09/22/2024 9:41 AM LABOR SUPERVISOR Plan of Treatment Not on file Medical Devices Implanted Type Area Incident Response Lead Device Identifier Shelf Expiration Date Model / Serial / Lot [employer] 1.32mm 4.8mm Modify Ear T Tube Ventilation Ultrasil Sterile Blue [id number] - [id number] Implanted:Qty: 1 on 09/22/2024 by Laura Oakes DO at [facility] Right: Ear [employer] 07/13/2034 [id number] / / [id number] Procedures Procedure Name Priority Date/Time Associated Diagnosis Comments TRANSTHORACIC ECHO (TTE) COMPLETE W DOPPLER/CF WO CONTRAST Routine 12/17/2024 2:57 PM CDT Persistent atrial fibrillation (HCC) from Last 3 Months Results * TRANSTHORACIC ECHO (TTE) COMPLETE W DOPPLER/CF WO CONTRAST (12/17/2024 2:57 PM CDT) LV EF 45-50 % CONS SCIMAGE Anatomical Region Laterality Modality Ultrasound 12/17/2024 2:11 PM CDT Narrative 12/17/2024 4:20 PM CDT [facility] Medical Group Cardiology [address], [place] [address] [address], [place] [address] P:[phone] P:[phone] Echocardiographic Report Patient Name: OMAR KIMBALL L : 1940 Study Date: 12/17/2024 2:11:41 PM Gender: M Tech: [facility] Location: [place] Ref Provider: MANDO DUMONT Height(Cm): 183 BSA: [...] FINDINGS: Interpretation Site: Exam was interpreted at [facility]. Left Ventricle: Normal left ventricular size. Mild [...] Procedure Note Koki Jimenez MD - 12/17/2024 [facility] Medical Group Cardiology [address] [facility] [address], [place] [address] [address] [facility] [address], [place], [place] [address] P:[phone] P:[phone] Echocardiographic Report Patient Name: OMAR KIMBALL L : 1940 Study Date: 12/17/2024 2:11:41 PM Gender: M Tech: [facility] Location: [facility] Provider: MANDO DUMONT Height(Cm): 183 BSA: 2.22 [...] FINDINGS: Interpretation Site: Exam was interpreted at [facility]. Left Ventricle: Normal left ventricular size. Mild [...] from Last 3 Months Insurance MEDICARE MEDICARE [facility] MEDICARE SUPPLEMENT Member Subscriber Plan / Payer (Ef fective 2006-Present) Name:Omar Kimball Taylor Relation to Subscriber:Self Name:Omar Kimball Taylor Payer ID:[id number] Type:COMMERCIAL Address: [address] [place] [id number] Care Teams Vp Treasurer Relationship Specialty Start Date End Date Demond Stark MD PCP - General 07/23/11
--- OUTSIDE RECORDS SUMMARY | 2025-01-27 13:45 | XMS_ITS | Encounter Summary ---
Author Organization [facility] Address [address] [place] [address] Care Team Providers Care Flame Hardening Machine Operator Name Role Phone Unavailable Primary Care Provider Unavailabl e Encounter Details Date Type Department Care Team (Late st Contact Info) Description 10/12/[address] [facility] Laboratory Services [address] [place] [address] [place] [address] [place] [address] Social History Tobacco Use Types Packs/Day Years Used Date Smoking Tobacco: Never Assessed Sex and Gender Information Value Date Recorded Sex Assigned at Not on file Legal Sex Male 9:18 AM SALESPERSON RECREATIONAL VEHICLES Gender Identity Not on file Sexual Orientation Not on file documented as of this encounter Plan of Treatment Not on file documented as of this encounter Procedures Procedure Name Priority Date/Time Associated Diagnosis Comments MAGNESIUM LEVEL Routine 10/12/2023 4:00 AM SALESPERSON RECREATIONAL VEHICLES RENAL FUNCTION PANEL Routine 10/12/2023 4:00 AM SALESPERSON RECREATIONAL VEHICLES documented in this encounter Results * MAGNESIUM LEVEL (10/12/2023 4:00 AM SALESPERSON RECREATIONAL VEHICLES) MAGNESIUM 2.3 1.6 - 2.6 mg/dL 10/12/2023 6:02 AM SALESPERSON RECREATIONAL VEHICLES [facility] [employer] [facility] Blood Collection / Unknown 10/12/2023 4:00 AM SALESPERSON RECREATIONAL VEHICLES 10/12/2023 5:07 AM SALESPERSON RECREATIONAL VEHICLES us Erik Chairez MD CHEMISTRY ORDERABLES Final Resul t [facility]# [id number] [address] [place] [address] * (ABNORMAL) RENAL FUNCTION PANEL (10/12/2023 4:00 AM SALESPERSON RECREATIONAL VEHICLES) SODIUM 139 136 - 145 mmol/L 10/12/2023 6:02 AM [facility] POTASSIUM 4.2 3.4 - 5.1 mmol/L 10/12/2023 6:02 AM [facility] CHLORIDE 102 98 - 107 mmol/L 10/12/2023 6:02 AM [facility] CO2 24 22 - 29 mmol/L 10/12/2023 6:02 AM [facility] CALCIUM 9.5 8.6 - 10.4 mg/dL 10/12/2023 6:02 AM [facility] BUN 43(H) 6 - 20 mg/dL 10/12/2023 6:02 AM [facility] CREATININE 1.20(H) 0.67 - 1.17 mg/dL 10/12/2023 6:02 AM [facility] Comment:The GFR result is no t clinically significant on patients <18 or >70 years of age. GLUCOSE 94 74 - 99 mg/dL 10/12/2023 6:02 AM [facility] ALBUMIN 3.4(L) 3.5 - 5.2 g/dL 10/12/2023 6:02 AM [facility] PHOSPHORUS 4.2 2.5 - 4.5 mg/dL 10/12/2023 6:02 AM [facility] GFR 60 mL/min/1.7 3 sq meter 10/12/2023 6:02 AM [facility] Comment:eGFR calculated with 2020 CKD-EPI equation. Vegetarian diet, extremely high or low muscle mass, and may affect results. Cystatin C with Glomerular Filtration Rate is a suitable alternative for these patients. ANION GAP 13 8 - 16 mmol/L 10/12/2023 6:02 AM [facility] Blood Collection / Unknown 10/12/2023 4:00 AM SALESPERSON RECREATIONAL VEHICLES 10/12/2023 5:07 AM SALESPERSON RECREATIONAL VEHICLES Erik Chairez MD CHEMISTRY ORDERABLES Final Resul t [facility] CLIA# [id number] [address] [place] [address] documented in this encounter Visit Diagnoses Not on filedocumented in this encounter Additional Health Concerns Infection Onset Date Last Indicated Resolved Time CRE-CP Comment:10/09/23 Klebsiella pneumoniae, Sputum 10/09/2023 10/09/2023 05/28/2024 2:37 PM C DT Multi Drug Resistant Organis m (MDRO) Comment:10/09/23 Klebsiella pneumoniae, CRE-CP organism, Sputum 10/09/2023 10/09/2023 DESK ASSISTANT-CP Comment:10/09/23 Klebsiella pneumoniae, Sputum 10/09/2023 05/28/2024 documented as of this encounter
--- OUTSIDE RECORDS SUMMARY | 2025-01-27 13:45 | XMS_ITS | Encounter Summary ---
Author Organization [facility] Address [address] [place] [address] Care Team Providers Care Sponge Maker Name Role Phone Unavailable Primary Care Provider Unavailabl e Encounter Details Date Type Department Care Team (Late st Contact Info) Description 11/04/2023 Lab Requisition [facility] Laboratory Services [address] [place] [address] [place] [address] [place] [address] Social History Tobacco Use Types Packs/Day Years Used Date Smoking Tobacco: Never Assessed Sex and Gender Information Value Date Recorded Sex Assigned at Not on file Legal Sex Male 9:18 AM STUDENT RECORDS COORDINATOR Gender Identity Not on file Sexual Orientation Not on file documented as of this encounter Plan of Treatment Not on file documented as of this encounter Procedures Procedure Name Priority Date/Time Associated Diagnosis Comments CBC WITH DIFFERENTIAL Routine 11/04/2023 3:45 AM STUDENT RECORDS COORDINATOR BASIC METABOLIC PANEL Routine 11/04/2023 3:45 AM STUDENT RECORDS COORDINATOR documented in this encounter Results * (ABNORMAL) CBC WITH DIFFERENTIAL (11/04/2023 3:45 AM STUDENT RECORDS COORDINATOR) WBC 12.2(H) 4.5 - 10.5 K/uL 11/04/2023 8:52 AM STUDENT RECORDS COORDINATOR [facility] - [facility] RBC 4.11(L) 4.50 - 5.40 M/uL 11/04/2023 8:52 AM STUDENT RECORDS COORDINATOR [facility] HEMOGLOBIN 11.7(L) 13.6 - 16.5 g/dL 11/04/2023 8:52 AM STUDENT RECORDS COORDINATOR [facility] HEMATOCRIT 37.9(L) 40.0 - 48.0 % 11/04/2023 8:52 AM STUDENT RECORDS COORDINATOR [facility] MCV 92.2 82.0 - 99.0 fL 11/04/2023 8:52 AM STUDENT RECORDS COORDINATOR [facility] MCH 28.5 27.8 - 34.5 pg 11/04/2023 8:52 AM STUDENT RECORDS COORDINATOR [facility] MCHC 30.9(L) 32.5 - 35.5 g/dL 11/04/2023 8:52 AM STUDENT RECORDS COORDINATOR [facility] RDW 17.0(H) 11.5 - 14.5 % 11/04/2023 8:52 AM STUDENT RECORDS COORDINATOR [facility] PLATELETS 272 160 - 420 K/uL 11/04/2023 8:52 AM STUDENT RECORDS COORDINATOR [facility] MPV 10.0 8.7 - 12.7 fL 11/04/2023 8:52 AM STUDENT RECORDS COORDINATOR [facility] NEUTROPHILS 45 % 11/04/2023 8:52 AM STUDENT RECORDS COORDINATOR [facility] LYMPHOCYTES 38 % 11/04/2023 8:52 AM STUDENT RECORDS COORDINATOR [facility] MONOCYTES 7 % 11/04/2023 8:52 AM STUDENT RECORDS COORDINATOR [facility] EOSINOPHILS 11 % 11/04/2023 8:52 AM STUDENT RECORDS COORDINATOR [facility] BASOPHILS 1 % 11/04/2023 8:52 AM STUDENT RECORDS COORDINATOR [facility] NEUTROPHIL ABSOLUTE 5.50 1.90 - 7.00 K/uL 11/04/2023 8:52 AM STUDENT RECORDS COORDINATOR [facility] LYMPHOCYTE ABSOLUTE 4.60(H) 0.70 - 4.50 K/uL 11/04/2023 8:52 AM STUDENT RECORDS COORDINATOR [facility] MONOCYTE ABSOLUTE 0.80 0.10 - 1.30 K/uL 11/04/2023 8:52 AM STUDENT RECORDS COORDINATOR [facility] EOSINOPHIL ABSOLUTE 1.30(H) 0.00 - 0.70 K/uL 11/04/2023 8:52 AM STUDENT RECORDS COORDINATOR [facility] BASOPHILS ABSOLUTE 0.10 0.00 - 0.20 K/uL 11/04/2023 8:52 AM [facility] [employer] [facility] Blood 11/04/2023 3:45 AM STUDENT RECORDS COORDINATOR 11/04/2023 8:24 AM STUDENT RECORDS COORDINATOR Erik Chairez MD HEMATOLOGY ORDERABLES Final Resu lt [facility] CLIA# [id number] [place] [address] * (ABNORMAL) BASIC METABOLIC PANEL (11/04/2023 3:45 AM STUDENT RECORDS COORDINATOR) SODIUM 144 136 - 145 mmol/L 11/04/2023 9:49 AM [facility] POTASSIUM 5.3(H) 3.4 - 5.1 mmol/L 11/04/2023 9:49 AM [facility] CHLORIDE 103 98 - 107 mmol/L 11/04/2023 9:49 AM [facility] CO2 26 22 - 29 mmol/L 11/04/2023 9:49 AM [facility] CALCIUM 10.7(H) 8.6 - 10.4 mg/dL 11/04/2023 9:49 AM [facility] BUN 38(H) 6 - 20 mg/dL 11/04/2023 9:49 AM [facility] CREATININE 0.95 0.67 - 1.17 mg/dL 11/04/2023 9:49 AM [facility] Comment:The GFR result is no t clinically significant on patients <18 or >70 years of age. GLUCOSE 114(H) 74 - 99 mg/dL 11/04/2023 9:49 AM [facility] GFR >60 mL/min/1.7 3 sq meter 11/04/2023 9:49 AM [facility] Comment:eGFR calculated with 2020 CKD-EPI equation. Vegetarian diet, extremely high or low muscle mass, and may affect results. Cystatin C with Glomerular Filtration Rate is a suitable alternative for these patients. ANION GAP 15 8 - 16 mmol/L 11/04/2023 9:49 AM STUDENT RECORDS COORDINATOR [facility] Blood 11/04/2023 3:45 AM STUDENT RECORDS COORDINATOR 11/04/2023 8:24 AM STUDENT RECORDS COORDINATOR Erik Chairez MD CHEMISTRY ORDERABLES Final Resul t [facility] CLIA# [id number] [place] [address] documented in this encounter Visit Diagnoses Not on filedocumented in this encounter Additional Health Concerns Infection Onset Date Last Indicated Resolved Time CRE-CP Comment:10/09/23 Klebsiella pneumoniae, Sputum 10/09/2023 10/09/2023 05/28/2024 2:37 PM C DT Multi Drug Resistant Organis m (MDRO) Comment:10/09/23 Klebsiella pneumoniae, CRE-CP organism, Sputum 10/09/2023 10/09/2023 PLAY WRITER-CP Comment:10/09/23 Klebsiella pneumoniae, Sputum 10/09/2023 05/28/2024 documented as of this encounter
--- OUTSIDE RECORDS SUMMARY | 2025-01-27 13:45 | XMS_ITS | Encounter Summary ---
Author Organization [facility] Address [address] [facility] [place] [address] Care Team Providers Care Baker Pastry Name Role Phone Demond Stark MD Primary Care Provider [phone] Encounter Details Date Type Department Care Team (Late Contact Info) Description 06/13/2023 Lab Requisition [facility] Lab [address] [place] [phone] Jaxon Anaya MD [address] [place], [place] [id number] Social History Tobacco Use Types Packs/Day Years Used Date Smoking Tobacco: Former Cigarettes Q uit: 09/23/1969 Smokeless Tobacco: Never Alcohol Use Standard Drinks/Week Comments Yes 0 (1 standard drink = 0.6 oz pur e alcohol) Sex and Gender Information Value Date Recorded Sex Assigned at Not on file Legal Sex Male 5:43 PM AGRICULTURE SPECIALIST Gender Identity Not on file Sexual Orientation Not on file documented as of this encounter Plan of Treatment Upcoming Encounters Date Type Department Care Team (Late Contact Info) Description 02/05/2025 8:30 AM CDT Office Visit [facility] - GI [address] [facility] [place] [phone] [place] [address] [place] [address] [address] FLO[address] DO[address] [place] [phone] 04/07/2025 2:00 PM CDT Office Visit [facility] - Neurology [facility] [facility], [place] [address] Venus Mckinley, COMMERCIAL PORTFOLIO MANAGER-LABOR CREW SUPERVISOR [address] [phone] documented as of this encounter Procedures Procedure Name Priority Date/Time Associated Diagnosis Comments DERMATOPATHOLOGY Routine 06/12/2023 12:0 0 AM CDT documented in this encounter Results * DERMATOPATHOLOGY (06/12/2023 12:00 AM CDT) Case Report Dermatopathology Report Case: [id number] Authorizing Provider: Jaxon Anaya MD Collected: 06/12/2023 12:00 AM Ordering Location: [facility] DermPath Lab Received: 06/13/2023 01:28 [...] specimen consists of a shave biopsy measuring 88x58r2 mm. Jar 0. 3:42 PM CDT DERMATOPATHOLOGY [...] characteristic determined by the Dermatopathology Laboratory at [facility], directed by Dr. Georgina Young. These tests need not be, and therefore are not, approved by the [place] Food and Drug Administration. The tests are used for clinical purposes. Billing Codes Specimen Charges Stain Charges 04011 1 71730 1 3 3:42 PM CDT DERMATOPATHOLOGY LABORATORY Embedded Images 3 3:42 PM CDT DERMATOPATHOLOGY LABORATORY Pathology/Cytolog y TISSUE SPECIMEN FROM SKIN / Unknown 06/12/2023 06/13/2023 1:28 PM CDT Jaxon Anaya MD LAB - PATHOLOGY/CYTOLOGY ORD ERABLES Final Result DERMATOPATHOLOGY LABORATORY [facility] - Department of Dermatology [address], [address] Floor [address] [phone] documented in this encounter Visit Diagnoses Not on filedocumented in this encounter Care Teams Baker Pastry Relationship Specialty Start Date End Date Demond Stark MD [address] [place] [address] PCP - General 10/03/15 documented as of this encounter
--- OUTSIDE RECORDS SUMMARY | 2025-01-27 13:45 | XMS_ITS | Encounter Summary ---
Author Organization [facility] Address [address] [facility] [place] [address] Care Team Providers Care Stripper Soft Plastic Name Role Phone Demond Stark MD Primary Care Provider [phone] Encounter Details Date Type Department Care Team (Late Contact Info) Description 06/28/2023 Lab Requisition [facility] [address] [place] [phone] Jaxon Anaya MD [address] [place], [place] [address] Social History Tobacco Use Types Packs/Day Years Used Date Smoking Tobacco: Former Cigarettes Q uit: 09/23/1969 Smokeless Tobacco: Never Alcohol Use Standard Drinks/Week Comments Yes 0 (1 standard drink = 0.6 oz pur e alcohol) Sex and Gender Information Value Date Recorded Sex Assigned at Not on file 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5 [facility], [place] [phone] Venus Mckinley, STEEL ROD BUSTER-THREAD MARKER [address] [place] [phone] documented as of this encounter Procedures Procedure Name Priority Date/Time Associated Diagnosis Comments DERMATOPATHOLOGY Routine 06/26/2023 12:0 0 AM CDT documented in this encounter Results * DERMATOPATHOLOGY (06/26/2023 12:00 AM CDT) Case Report Dermatopathology Report Case: [id number] Authorizing Provider: Jaxon Anaya MD Collected: 06/26/2023 12:00 AM Ordering Location: [facility] DermPath Lab Received: 06/28/2023 09:48 AM Pathologist: [...] back.The specimen consists of an ellipse measuring 80s69x21 mm and is oriented with the suture/notch [...] characteristic determined by the Dermatopathology Laboratory at [facility], directed by Dr. Georgina Young. These tests need not be, and therefore are not, approved by the [place] Food and Drug Administration. The tests are used for clinical purposes. Billing Codes Specimen Charges Stain Charges 69276 1 3 4:58 PM CDT DERMATOPATHOLOGY LABORATORY Embedded Images 3 4:58 PM CDT DERMATOPATHOLOGY LABORATORY Pathology/Cytolog y TISSUE SPECIMEN FROM SKIN / Unknown 06/26/2023 06/28/2023 9:48 AM CDT Jaxon Anaya MD LAB - PATHOLOGY/CYTOLOGY ORD ERABLES Final Result DERMATOPATHOLOGY LABORATORY [facility] - Department of Dermatology [facility] Medicine [address] [place] [address], [address] [phone] documented in this encounter Visit Diagnoses Not on filedocumented in this encounter Care Teams Stripper Soft Plastic Relationship Specialty Start Date End Date Demond Stark MD [address] [place] [address] PCP - General 10/03/15 documented as of this encounter
--- OUTSIDE RECORDS SUMMARY | 2025-01-27 13:45 | XMS_ITS | Encounter Summary ---
Author Organization [facility] Address [address] [place] [address] Care Team Providers Care Solid Fiber Paster Operator Name Role Phone Unavailable Primary Care Provider Unavailabl e Encounter Details Date Type Department Care Team (Late st Contact Info) Description 10/26/2023 Lab Requisition [facility] Laboratory Services [address] [place] [address] [place] [address] [place] [address] Social History Tobacco Use Types Packs/Day Years Used Date Smoking Tobacco: Never Assessed Sex and Gender Information Value Date Recorded Sex Assigned at Not on file Legal Sex Male 9:18 AM CURATOR HORTICULTURAL MUSEUM Gender Identity Not on file Sexual Orientation Not on file documented as of this encounter Plan of Treatment Not on file documented as of this encounter Procedures Procedure Name Priority Date/Time Associated Diagnosis Comments CBC WITH DIFFERENTIAL Routine 10/26/2023 3:20 AM CURATOR HORTICULTURAL MUSEUM BASIC METABOLIC PANEL Routine 10/26/2023 3:20 AM CURATOR HORTICULTURAL MUSEUM documented in this encounter Results * (ABNORMAL) CBC WITH DIFFERENTIAL (10/26/2023 3:20 AM CURATOR HORTICULTURAL MUSEUM) WBC 9.2 4.5 - 10.5 K/uL 10/26/2023 5:32 AM CURATOR HORTICULTURAL MUSEUM [facility] - [facility] RBC 3.83(L) 4.50 - 5.40 M/uL 10/26/2023 5:32 AM CURATOR HORTICULTURAL MUSEUM [facility] HEMOGLOBIN 11.4(L) 13.6 - 16.5 g/dL 10/26/2023 5:32 AM CURATOR HORTICULTURAL MUSEUM [facility] - [facility] HEMATOCRIT 35.4(L) 40.0 - 48.0 % 10/26/2023 5:32 AM CURATOR HORTICULTURAL MUSEUM [facility] SERVICES [facility] MCV 92.4 82.0 - 99.0 fL 10/26/2023 5:32 AM CURATOR HORTICULTURAL MUSEUM [facility] - [facility] MCH 29.6 27.8 - 34.5 pg 10/26/2023 5:32 AM CURATOR HORTICULTURAL MUSEUM [facility] SERVICES [facility] MCHC 32.0(L) 32.5 - 35.5 g/dL 10/26/2023 5:32 AM CURATOR HORTICULTURAL MUSEUM [facility] SERVICES [facility] RDW 17.3(H) 11.5 - 14.5 % 10/26/2023 5:32 AM CURATOR HORTICULTURAL MUSEUM [facility] SERVICES [facility] PLATELETS 240 160 - 420 K/uL 10/26/2023 5:32 AM CURATOR HORTICULTURAL MUSEUM [facility] MPV 9.3 8.7 - 12.7 fL 10/26/2023 5:32 AM CURATOR HORTICULTURAL MUSEUM [facility] SERVICES [facility] NEUTROPHILS 69 % 10/26/2023 5:32 AM CURATOR HORTICULTURAL MUSEUM [facility] SERVICES [facility] LYMPHOCYTES 21 % 10/26/2023 5:32 AM CURATOR HORTICULTURAL MUSEUM [employer] LABORATORY SERVICES [facility] MONOCYTES 6 % 10/26/2023 5:32 AM CURATOR HORTICULTURAL MUSEUM [facility] SERVICES [facility] EOSINOPHILS 4 % 10/26/2023 5:32 AM CURATOR HORTICULTURAL MUSEUM [facility] SERVICES [facility] BASOPHILS 1 % 10/26/2023 5:32 AM CURATOR HORTICULTURAL MUSEUM [facility] SERVICES [facility] NEUTROPHIL ABSOLUTE 6.30 1.90 - 7.00 K/uL 10/26/2023 5:32 AM CURATOR HORTICULTURAL MUSEUM [facility] SERVICES [facility] LYMPHOCYTE ABSOLUTE 1.90 0.70 - 4.50 K/uL 10/26/2023 5:32 AM CURATOR HORTICULTURAL MUSEUM [facility] MONOCYTE ABSOLUTE 0.50 0.10 - 1.30 K/uL 10/26/2023 5:32 AM CURATOR HORTICULTURAL MUSEUM [facility] SERVICES [facility] EOSINOPHIL ABSOLUTE 0.40 0.00 - 0.70 K/uL 10/26/2023 5:32 AM CURATOR H[employer]ICULTURAL MUSE[employer] [facility] SERVICES [facility] BASOPHILS ABSOLUTE 0.00 0.00 - 0.20 K/uL 10/26/2023 5:32 AM [facility] Blood Collection / Unknown 10/26/2023 3:20 AM CURATOR HORTICULTURAL MUSEUM 10/26/2023 4:57 AM CURATOR HORTICULTURAL MUSEUM Erik Chairez MD HEMATOLOGY ORDERABLES Final Resu lt [facility] CLIA# [id number] [facility] [place] [address] * (ABNORMAL) BASIC METABOLIC PANEL (10/26/2023 3:20 AM CURATOR HORTICULTURAL MUSEUM) SODIUM 137 136 - 145 mmol/L 10/26/2023 5:58 AM [facility] POTASSIUM 4.2 3.4 - 5.1 mmol/L 10/26/2023 5:58 AM [facility] CHLORIDE 100 98 - 107 mmol/L 10/26/2023 5:58 AM [facility] CO2 27 22 - 29 mmol/L 10/26/2023 5:58 AM [facility] CALCIUM 9.8 8.6 - 10.4 mg/dL 10/26/2023 5:58 AM [facility] BUN 39(H) 6 - 20 mg/dL 10/26/2023 5:58 AM [facility] CREATININE 1.01 0.67 - 1.17 mg/dL 10/26/2023 5:58 AM [facility] Comment:The GFR result is no t clinically significant on patients <18 or >70 years of age. GLUCOSE 110(H) 74 - 99 mg/dL 10/26/2023 5:58 AM [facility] GFR >60 mL/min/1.7 3 sq meter 10/26/2023 5:58 AM [facility] Comment:eGFR calculated with 2020 CKD-EPI equation. Vegetarian diet, extremely high or low muscle mass, and may affect results. Cystatin C with Glomerular Filtration Rate is a suitable alternative for these patients. ANION GAP 10 8 - 16 mmol/L 10/26/2023 5:58 AM CURATOR HORTICULTURAL MUSEUM [facility] Blood Collection / Unknown 10/26/2023 3:20 AM CURATOR HORTICULTURAL MUSEUM 10/26/2023 4:57 AM CURATOR HORTICULTURAL MUSEUM Erik Chairez MD CHEMISTRY ORDERABLES Final Resul t [facility] CLIA# [id number] [place] [address] documented in this encounter Visit Diagnoses Not on filedocumented in this encounter Additional Health Concerns Infection Onset Date Last Indicated Resolved Time 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
--- OUTSIDE RECORDS SUMMARY | 2025-01-27 13:45 | XMS_ITS | Encounter Summary ---
Author Organization [facility] Address 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 Gender Identity Not on file Sexual Orientation Not on file documented as of this encounter Plan of Treatment Not on file documented as of this encounter Procedures Procedure Name Priority Date/Time Associated Diagnosis Comments CBC WITH DIFFERENTIAL Routine 10/17/2023 2:15 AM GENERAL ENGINEER MAGNESIUM LEVEL Routine 10/17/2023 2:15 AM GENERAL ENGINEER RENAL FUNCTION PANEL Routine 10/17/2023 2:15 AM GENERAL ENGINEER documented in this encounter Results * MAGNESIUM LEVEL (10/17/2023 2:15 AM GENERAL ENGINEER) MAGNESIUM 2.3 1.6 - 2.6 mg/dL 10/17/2023 9:56 AM GENERAL ENGINEER [facility] Blood Collection / Unknown 10/17/2023 2:15 AM GENERAL ENGINEER 10/17/2023 9:00 AM GENERAL ENGINEER Erik Chairez MD CHEMISTRY ORDERABLES Final Resul t [facility] CLIA# [id number] [address] [place] [address] * (ABNORMAL) CBC WITH DIFFERENTIAL (10/17/2023 2:15 AM GENERAL ENGINEER) WBC 6.7 4.5 - 10.5 K/uL 10/17/2023 9:34 AM GENERAL ENGINEER [facility] RBC 3.73(L) 4.50 - 5.40 M/uL 10/17/2023 9:34 AM GENERAL ENGINEER [facility] HEMOGLOBIN 11.1(L) 13.6 - 16.5 g/dL 10/17/2023 9:34 AM GENERAL ENGINEER [facility] HEMATOCRIT 35.0(L) 40.0 - 48.0 % 10/17/2023 9:34 AM GENERAL ENGINEER [facility] MCV 93.8 82.0 - 99.0 fL 10/17/2023 9:34 AM GENERAL ENGINEER [facility] MCH 29.8 27.8 - 34.5 pg 10/17/2023 9:34 AM GENERAL ENGINEER [facility] MCHC 31.8(L) 32.5 - 35.5 g/dL 10/17/2023 9:34 AM GENERAL ENGINEER [facility] RDW 17.4(H) 11.5 - 14.5 % 10/17/2023 9:34 AM GENERAL ENGINEER [facility] PLATELETS 214 160 - 420 K/uL 10/17/2023 9:34 AM GENERAL ENGINEER [facility] MPV 9.5 8.7 - 12.7 fL 10/17/2023 9:34 AM GENERAL ENGINEER [facility] NEUTROPHILS 50 % 10/17/2023 9:34 AM GENERAL ENGINEER [facility] LYMPHOCYTES 28 % 10/17/2023 9:34 AM GENERAL ENGINEER [facility] MONOCYTES 8 % 10/17/2023 9:34 AM GENERAL ENGINEER [facility] EOSINOPHILS 13 % 10/17/2023 9:34 AM GENERAL ENGINEER [facility] BASOPHILS 0 % 10/17/2023 9:34 AM GENERAL ENGINEER [facility] NEUTROPHIL ABSOLUTE 3.40 1.90 - 7.00 K/uL 10/17/2023 9:34 AM GENERAL ENGINEER [facility] LYMPHOCYTE ABSOLUTE 1.90 0.70 - 4.50 K/uL 10/17/2023 9:34 AM GENERAL ENGINEER [facility] MONOCYTE ABSOLUTE 0.50 0.10 - 1.30 K/uL 10/17/2023 9:34 AM GENERAL ENGINEER [facility] EOSINOPHIL ABSOLUTE 0.90(H) 0.00 - 0.70 K/uL 10/17/2023 9:34 AM GENERAL ENGINEER [facility] BASOPHILS ABSOLUTE 0.00 0.00 - 0.20 K/uL 10/17/2023 9:34 AM GENERAL ENGINEER [facility] Blood Collection / Unknown 10/17/2023 2:15 AM GENERAL ENGINEER 10/17/2023 9:00 AM GENERAL ENGINEER us Erik Chairez MD HEMATOLOGY ORDERABLES Final Resu lt [facility] CLIA# [id number] [address] [place] [address] * (ABNORMAL) RENAL FUNCTION PANEL (10/17/2023 2:15 AM GENERAL ENGINEER) SODIUM 137 136 - 145 mmol/L 10/17/2023 9:56 AM [facility] [employer] [facility] POTASSIUM 4.0 3.4 - 5.1 mmol/L 10/17/2023 9:56 AM [facility] CHLORIDE 99 98 - 107 mmol/L 10/17/2023 9:56 AM [facility] [employer] [facility] CO2 23 22 - 29 mmol/L 10/17/2023 9:56 AM [facility] [employer] [facility] CALCIUM 9.2 8.6 - 10.4 mg/dL 10/17/2023 9:56 AM [facility] [employer] [facility] BUN 42(H) 6 - 20 mg/dL 10/17/2023 9:56 AM [facility] CREATININE 1.00 0.67 - 1.17 mg/dL 10/17/2023 9:56 AM [facility] Comment:The GFR result is no t clinically significant on patients <18 or >70 years of age. GLUCOSE 72(L) 74 - 99 mg/dL 10/17/2023 9:56 AM [facility] ALBUMIN 3.2(L) 3.5 - 5.2 g/dL 10/17/2023 9:56 AM [facility] PHOSPHORUS 2.9 2.5 - 4.5 mg/dL 10/17/2023 9:56 AM [facility] GFR >60 mL/min/1.7 3 sq meter 10/17/2023 9:56 AM [facility] Comment:eGFR calculated with 2020 CKD-EPI equation. Vegetarian diet, extremely high or low muscle mass, and may affect results. Cystatin C with Glomerular Filtration Rate is a suitable alternative for these patients. 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
--- OUTSIDE RECORDS SUMMARY | 2025-01-27 13:45 | XMS_ITS | Encounter Summary ---
Author Organization [facility] Address [address] [place] [address] Care Team Providers Care Laboratory Development Technician Name Role Phone Unavailable Primary Care Provider Unavailabl e Encounter Details Date Type Department Care Team (Late st Contact Info) Description 11/07/2023 Lab Requisition [facility] Laboratory Services [id number] [place] [address] [place] [id number] [place] [address] Social History Tobacco Use Types Packs/Day Years Used Date Smoking Tobacco: Never Assessed Sex and Gender Information Value Date Recorded Sex Assigned at Not on file Legal Sex Male 9:18 AM SPECIAL ED ASSISTANT Gender Identity Not on file Sexual Orientation Not on file documented as of this encounter Plan of Treatment Not on file documented as of this encounter Procedures Procedure Name Priority Date/Time Associated Diagnosis Comments THEOPHYLLINE LEVEL Routine 11/07/2023 8: 40 AM SPECIAL ED ASSISTANT documented in this encounter Results * (ABNORMAL) THEOPHYLLINE LEVEL (11/07/2023 8:40 AM SPECIAL ED ASSISTANT) THEOPHYLLINE LEVEL <0.8(L) 10.0 - 20.0 ug/mL 11/07/2023 3:56 PM SPECIAL ED ASSISTANT [facility] Comment:Verified by repeat a nalysis. TDM LAST DATE, TIME, AMT (TIFFANIE) Patient unable to state date. time or dose. 11/07/2023 3:56 PM SPECIAL ED ASSISTANT [facility] LAST DOSE AMT, THEOPHYLLINE Other 11/07/2023 3:56 PM SPECIAL ED ASSISTANT [facility] Comment:80 mg Blood 11/07/2023 8:40 AM SPECIAL ED ASSISTANT 11/07/2023 10:34 AM SPECIAL ED ASSISTANT Narrative [facility] - 11/07/2023 3:56 PM SPECIAL ED ASSISTANT Theophylline Toxic Levels: 6 months - Adult = >20.0 ug/mL 0 - 6 months = >15.0 ug/mL Erik Chairez MD CHEMISTRY ORDERABLES Final Resul t 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
--- OUTSIDE RECORDS SUMMARY | 2025-01-27 13:45 | XMS_ITS | Clinical Summary ---
Author Organization [facility] Address [address] [place] [address] Care Team Providers Care Contact Center Representative Name Role Phone Demond Stark MD Primary Care Provider [phone] Social History Tobacco Use Types Packs/Day Years [...] (Season Ended) 2025 07/24/20 10 Care Teams Contact Center Representative Relationship Specialty Start Date End Date Demond Stark MD [address] [address] PCP - General Family Medicine 06/04/24
--- OUTSIDE RECORDS SUMMARY | 2025-01-27 13:45 | XMS_ITS | Encounter Summary ---
Author Organization [facility] Address [address] [place] [address] Care Team Providers Care Counter Person Name Role Phone Unavailable Primary Care Provider Unavailabl e Encounter Details Date Type Department Care Team (Late st Contact Info) Description 10/11/2023 Lab Requisition [facility] Laboratory Services [id number] [place] [address] [place] [id number] [place] [address] Social History Tobacco Use Types Packs/Day Years Used Date Smoking Tobacco: Never Assessed Sex and Gender Information Value Date Recorded Sex Assigned at Not on file Legal Sex Male 9:18 AM MANAGING COGNITIVE ENGINEER Gender Identity Not on file Sexual Orientation Not on file documented as of this encounter Plan of Treatment Not on file documented as of this encounter Procedures Procedure Name Priority Date/Time Associated Diagnosis Comments CBC WITH DIFFERENTIAL Routine 10/11/2023 3:30 AM MANAGING COGNITIVE ENGINEER TRIGLYCERIDE Routine 10/11/2023 3:30 AM MANAGING COGNITIVE ENGINEER MAGNESIUM LEVEL Routine 10/11/2023 3:30 AM MANAGING COGNITIVE ENGINEER RENAL FUNCTION PANEL Routine 10/11/2023 3:30 AM MANAGING COGNITIVE ENGINEER documented in this encounter Results * (ABNORMAL) TRIGLYCERIDE (10/11/2023 3:30 AM MANAGING COGNITIVE ENGINEER) TRIGLYCERIDE 192(H) <150 mg/dL 10/11/2023 6:28 AM MANAGING COGNITIVE ENGINEER [facility] Blood 10/11/2023 3:30 AM MANAGING COGNITIVE ENGINEER 10/11/2023 5:43 AM MANAGING COGNITIVE ENGINEER Narrative [facility] [employer] [facility] - 10/11/2023 6:28 AM MANAGING COGNITIVE ENGINEER TRIGLYCERIDES mg/dL Normal < 150 Borderline High 150 - 199 High 200 - 499 Very High >= 500 Based on AHA/NCEP Guidelines. Erik Chairez MD CHEMISTRY ORDERABLES Final Resul t Performing Organization Address City/[facility]/ZIP Co de Phone Number [facility] CLIA# [id number] [place] [address] * MAGNESIUM LEVEL (10/11/2023 3:30 AM MANAGING COGNITIVE ENGINEER) MAGNESIUM 2.2 1.6 - 2.6 mg/dL 10/11/2023 6:28 AM [facility] Blood 10/11/2023 3:30 AM MANAGING COGNITIVE ENGINEER 10/11/2023 5:43 AM MANAGING COGNITIVE ENGINEER Erik Chairez MD CHEMISTRY ORDERABLES Final Resul t Performing Organization Address City/[facility]/ZIP Co de Phone Number [facility] CLIA# [id number] [address] [place] [address] * (ABNORMAL) CBC WITH DIFFERENTIAL (10/11/2023 3:30 AM MANAGING COGNITIVE ENGINEER) WBC 8.8 4.5 - 10.5 K/uL 10/11/2023 6:05 AM [facility] [employer] [facility] RBC 3.43(L) 4.50 - 5.40 M/uL 10/11/2023 6:05 AM [facility] [employer] [facility] HEMOGLOBIN 10.5(L) 13.6 - 16.5 g/dL 10/11/2023 6:05 AM [facility] HEMATOCRIT 32.7(L) 40.0 - 48.0 % 10/11/2023 6:05 AM [facility] MCV 95.4 82.0 - 99.0 fL 10/11/2023 6:05 AM [facility] MCH 30.7 27.8 - 34.5 pg 10/11/2023 6:05 AM [facility]ORATORY [facility] MCHC 32.2(L) 32.5 - 35.5 g/dL 10/11/2023 6:05 AM [facility] RDW 18.7(H) 11.5 - 14.5 % 10/11/2023 6:05 AM [facility] PLATELETS 218 160 - 420 K/uL 10/11/2023 6:05 AM [facility] MPV 9.3 8.7 - 12.7 fL 10/11/2023 6:05 AM MANAGING COGNITIVE ENGINEER [facility] NEUTROPHILS 67 % 10/11/2023 6:05 AM MANAGING COGNITIVE ENGINEER [facility] LYMPHOCYTES 18 % 10/11/2023 6:05 AM MANAGING COGNITIVE ENGINEER [facility] MONOCYTES 7 % 10/11/2023 6:05 AM MANAGING COGNITIVE ENGINEER [facility] EOSINOPHILS 7 % 10/11/2023 6:05 AM [facility]ORAT[facility] BASOPHILS 1 % 10/11/2023 6:05 AM MANAGING COGNITIVE ENGINEER [facility] NEUTROPHIL ABSOLUTE 5.90 1.90 - 7.00 K/uL 10/11/2023 6:05 AM [facility]ORATORY [facility] LYMPHOCYTE ABSOLUTE 1.60 0.70 - 4.50 K/uL 10/11/2023 6:05 AM [facility] MONOCYTE ABSOLUTE 0.60 0.10 - 1.30 K/uL 10/11/2023 6:05 AM [facility]ORAT[facility] EOSINOPHIL ABSOLUTE 0.60 0.00 - 0.70 K/uL 10/11/2023 6:05 AM MANAGING COGNITIVE ENGINEER [facility] BASOPHILS ABSOLUTE 0.10 0.00 - 0.20 K/uL 10/11/2023 6:05 AM [facility] Blood 10/11/2023 3:30 AM MANAGING COGNITIVE ENGINEER 10/11/2023 5:43 AM MANAGING COGNITIVE ENGINEER us Erik Chairez MD HEMATOLOGY ORDERABLES Final Resu lt [facility] CLIA# [id number] [address] [place] [address] * (ABNORMAL) RENAL FUNCTION PANEL (10/11/2023 3:30 AM MANAGING COGNITIVE ENGINEER) SODIUM 145 136 - 145 mmol/L 10/11/2023 6:28 AM [facility] [employer] [facility] POTASSIUM 4.0 3.4 - 5.1 mmol/L 10/11/2023 6:28 AM [facility] CHLORIDE 106 98 - 107 mmol/L 10/11/2023 6:[address] [facility] CO2 26 22 - 29 mmol/L 10/11/2023 6:28 AM [facility] CALCIUM 9.3 8.6 - 10.4 mg/dL 10/11/2023 6:28 AM [facility] BUN 38(H) 6 - 20 mg/dL 10/11/2023 6:28 AM [facility] CREATININE 1.38(H) 0.67 - 1.17 mg/dL 10/11/2023 6:28 AM [facility] Comment:The GFR result is no t clinically significant on patients <18 or >70 years of age. GLUCOSE 85 74 - 99 mg/dL 10/11/2023 6:28 AM [facility] ALBUMIN 3.4(L) 3.5 - 5.2 g/dL 10/11/2023 6:28 AM [facility] PHOSPHORUS 3.9 2.5 - 4.5 mg/dL 10/11/2023 6:28 AM [facility] GFR 51 mL/min/1.7 3 sq meter 10/11/2023 6:28 AM [facility] Comment:eGFR calculated with 2020 CKD-EPI equation. Vegetarian diet, extremely high or low muscle mass, and may affect results. Cystatin C with Glomerular Filtration Rate is a suitable alternative for these patients. ANION GAP 13 8 - 16 mmol/L 10/11/2023 6:28 AM MANAGING COGNITIVE ENGINEER [facility] Blood 10/11/2023 3:30 AM MANAGING COGNITIVE ENGINEER 10/11/2023 5:43 AM MANAGING COGNITIVE ENGINEER Erik Chairez MD CHEMISTRY ORDERABLES Final Resul t [facility] CLIA# [id number] [place] [address] documented in this encounter Visit Diagnoses Not on filedocumented in this encounter Additional Health Concerns Infection Onset Date Last Indicated Resolved Time CRE-CP Comment:10/09/23 Klebsiella pneumoniae, Sputum 10/09/2023 10/09/2023 05/28/2024 2:37 PM C DT 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
--- OUTSIDE RECORDS SUMMARY | 2025-01-27 13:45 | XMS_ITS | Encounter Summary ---
Author Organization [facility] Address [address] [place] [address] Care Team Providers Care Painter Airbrush Name Role Phone Unavailable Primary Care Provider Unavailabl e Encounter Details Date Type Department Care Team (Late st Contact Info) Description 11/01/2023 Lab Requisition [facility] Laboratory Services [address] [place] [address] [place] [address] [place] [address] Social History Tobacco Use Types Packs/Day Years Used Date Smoking Tobacco: Never Assessed Sex and Gender Information Value Date Recorded Sex Assigned at Not on file Legal Sex Male 9:18 AM COMMUNICATIONS INTERN Gender Identity Not on file Sexual Orientation Not on file documented as of this encounter Plan of Treatment Not on file documented as of this encounter Procedures Procedure Name Priority Date/Time Associated Diagnosis Comments CBC WITH DIFFERENTIAL Routine 11/01/2023 4:20 AM COMMUNICATIONS INTERN BASIC METABOLIC PANEL Routine 11/01/2023 4:20 AM COMMUNICATIONS INTERN documented in this encounter Results * (ABNORMAL) CBC WITH DIFFERENTIAL (11/01/2023 4:20 AM COMMUNICATIONS INTERN) WBC 8.5 4.5 - 10.5 K/uL 11/01/2023 8:48 AM COMMUNICATIONS INTERN [facility] - [facility] RBC 3.87(L) 4.50 - 5.40 M/uL 11/01/2023 8:48 AM COMMUNICATIONS INTERN [facility] HEMOGLOBIN 11.2(L) 13.6 - 16.5 g/dL 11/01/2023 8:48 AM COMMUNICATIONS INTERN [facility] HEMATOCRIT 34.9(L) 40.0 - 48.0 % 11/01/2023 8:48 AM COMMUNICATIONS INTERN [facility] MCV 90.3 82.0 - 99.0 fL 11/01/2023 8:48 AM COMMUNICATIONS INTERN [facility] - [facility] MCH 29.0 27.8 - 34.5 pg 11/01/2023 8:48 AM COMMUNICATIONS INTERN [facility] MCHC 32.1(L) 32.5 - 35.5 g/dL 11/01/2023 8:48 AM COMMUNICATIONS INTERN [facility] RDW 17.0(H) 11.5 - 14.5 % 11/01/2023 8:48 AM COMMUNICATIONS INTERN [facility] PLATELETS 246 160 - 420 K/uL 11/01/2023 8:48 AM COMMUNICATIONS INTERN [facility] MPV 9.7 8.7 - 12.7 fL 11/01/2023 8:48 AM COMMUNICATIONS INTERN [facility] NEUTROPHILS 53 % 11/01/2023 8:48 AM COMMUNICATIONS INTERN [facility] LYMPHOCYTES 29 % 11/01/2023 8:48 AM COMMUNICATIONS INTERN [facility] MONOCYTES 7 % 11/01/2023 8:48 AM COMMUNICATIONS INTERN [facility] EOSINOPHILS 12 % 11/01/2023 8:48 AM COMMUNICATIONS INTERN [facility] BASOPHILS 1 % 11/01/2023 8:48 AM COMMUNICATIONS INTERN [facility] NEUTROPHIL ABSOLUTE 4.50 1.90 - 7.00 K/uL 11/01/2023 8:48 AM COMMUNICATIONS INTERN [facility] LYMPHOCYTE ABSOLUTE 2.40 0.70 - 4.50 K/uL 11/01/2023 8:48 AM COMMUNICATIONS INTERN [facility] MONOCYTE ABSOLUTE 0.60 0.10 - 1.30 K/uL 11/01/2023 8:48 AM COMMUNICATIONS INTERN [facility] EOSINOPHIL ABSOLUTE 1.00(H) 0.00 - 0.70 K/uL 11/01/2023 8:48 AM COMMUNICATIONS INTERN [facility] BASOPHILS ABSOLUTE 0.00 0.00 - 0.20 K/uL 11/01/2023 8:48 AM [facility] Blood Collection / Unknown 11/01/2023 4:20 AM COMMUNICATIONS INTERN 11/01/2023 7:57 AM COMMUNICATIONS INTERN Erik Chairez MD HEMATOLOGY ORDERABLES Final Resu lt [facility] CLIA# [id number] [id number] [place] [address] * (ABNORMAL) BASIC METABOLIC PANEL (11/01/2023 4:20 AM COMMUNICATIONS INTERN) SODIUM 139 136 - 145 mmol/L 11/01/2023 9:12 AM [facility] POTASSIUM 3.7 3.4 - 5.1 mmol/L 11/01/2023 9:12 AM [facility] CHLORIDE 100 98 - 107 mmol/L 11/01/2023 9:12 AM [facility] CO2 27 22 - 29 mmol/L 11/01/2023 9:12 AM [facility] CALCIUM 9.8 8.6 - 10.4 mg/dL 11/01/2023 9:12 AM [facility] BUN 41(H) 6 - 20 mg/dL 11/01/2023 9:12 AM [facility] CREATININE 0.93 0.67 - 1.17 mg/dL 11/01/2023 9:12 AM [facility] Comment:The GFR result is no t clinically significant on patients <18 or >70 years of age. GLUCOSE 109(H) 74 - 99 mg/dL 11/01/2023 9:12 AM [facility] GFR >60 mL/min/1.7 3 sq meter 11/01/2023 9:12 AM [facility] Comment:eGFR calculated with 2020 CKD-EPI equation. Vegetarian diet, extremely high or low muscle mass, and may affect results. Cystatin C with Glomerular Filtration Rate is a suitable alternative for these patients. 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
--- OUTSIDE RECORDS SUMMARY | 2025-01-27 13:45 | XMS_ITS | Encounter Summary ---
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
--- OUTSIDE RECORDS SUMMARY | 2025-01-27 13:45 | XMS_ITS | Clinical Summary ---
Author Organization [facility] Medical [facility] Building B Address [address] [place] [address] Care Team Providers Care Durability Engineer Name Role Phone Demond Stark MD Primary Care Provider [phone] Allergies Active Allergy Reactions Criticality Noted Date Comments Diphenhydramine Hallucinations Medium 11/27/2023 Was not able to sleep and made him more anxious Lisinopril Cough Low Reaction: Cough, Pravastatin Muscle pain Medium Reaction: Muscular Pain, Quetiapine Other (See comments) Low 06/05/2024 Hallucinations, insomnia Simvastatin Muscle pain Medium Reaction: Muscular Pain, Jdggjtb-Ywo-Smr Reductase Inhibitors Muscle pain,Other (See comments) Medium 10/03/2015 Pt reports leg weakness/heavine ss when taking zocor. Medications levothyroxine (SYNTHROID) 112 mcg tablet Take 1 tablet (112 mcg total) by mouth crochet beader before breakfast Active aspirin 81 mg tablet [...] 08/31/2024 Assessment & Plan (10/05/2024 10:54 AM CURRICULUM DEVELOPMENT COORDINATOR): Avoid ear cleaning techniques Avoid water to ears Follow up in 9 months for right ear tube check, earlier with ear drainage Assessment & Plan (08/31/2024 11:40 AM CURRICULUM DEVELOPMENT COORDINATOR): Right myringotomy with T-tube placement Risks and [...] 07/09/2024 Assessment & Plan (08/31/2024 11:39 AM CURRICULUM DEVELOPMENT COORDINATOR): Right myringotomy with T-tube placement Risks and [...] 08/07/2017 Assessment & Plan (08/07/2017 6:01 PM CURRICULUM DEVELOPMENT COORDINATOR): Has had elevated LFTs and a fatty liver. Bradycardia 08/07/2017 Assessment & Plan (08/07/2017 5:58 PM CURRICULUM DEVELOPMENT COORDINATOR): Asymptomatic bradycardia, on low-dose metoprolol which may eventually need to be reduced or discontinued. Traumatic subdural hematoma of neuraxis 10/15/19 17 Overview (12/28/2016): Traumatic subdural hematoma without loss of consciousness, sequela Statin intolerance 10/15/2016 Overview (12/28/2016): Statin intolerance Essential hypertension 07/20/2013 Overview (12/28/2016): Hypertension Assessment & Plan (08/07/2017 5:57 PM CURRICULUM DEVELOPMENT COORDINATOR): Hypertension is not under good control; reviewing [...] HYPERLIPIDEMIA Assessment & Plan (08/07/2017 6:03 PM CURRICULUM DEVELOPMENT COORDINATOR): Has refued further attempts at statin therapy. History of coronary artery bypass surgery 2009 Overview (12/26/2016): AORTOCORONARY BYPASS Coronary arteriosclerosis in [place] artery 12/20 Overview (08/07/2017): CRNRY ATHRSCL NATVE VSSL 2009: Non STEMI and CABG x3 (HOBSON to the LAD, sequential RA to OM and D1) Assessment & Plan (08/07/2017 6:00 PM CURRICULUM DEVELOPMENT COORDINATOR): 2009: Non STEMI and CABG x3 (HOBSON [...] 03/04/2018 Assessment & Plan (08/07/2017 5:58 PM CURRICULUM DEVELOPMENT COORDINATOR): Patient is going to have knee surgery soon and needs preoperative clearance. Coronary artery disease appears stable. Low risk for cardiac event with proposed surgery. 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/2009 03/25/2023 Overview (12/28/2016): SUBENDO INFARCT, SUBSEQ Encounters Date Type Department Care Team Description 01/19/2025 Telephone [facility] Cardiology [address] [place] [address] [address] [place] [phone] Cedric Dumont MD 12/21/2024 Results Follow-Up [facility] Cardiology [address] [place] [address] [address] [place] [phone] Cedric Dumont MD 12/17/2024 2:00 PM CDT Ancillary Procedure [facility] Cardiology [address] [place] [address] [address] [place] [phone] Persistent atrial fibrillation (HCC) 11/09/2024 Telephone [facility] Cardiology [address] [place] [address] [address] [place] [phone] Cedric Dumont MD 11/05/2024 Telephone [facility] Cardiology [address] [place] [address] [address] [place] [phone] Cedric Dumont MD cardiac clearance; samples from [...] on file Legal Sex Male 8:49 AM CURRICULUM DEVELOPMENT COORDINATOR Gender Identity Not on file Sexual Orientation Not on file Obstetrics History Last Filed Vital Signs Vital Sign Reading Time Taken Comments Blood Pressure 160/88 09/22/2024 1:04 PM CURRICULUM DEVELOPMENT COORDINATOR Pulse 83 09/22/2024 1:04 PM CURRICULUM DEVELOPMENT COORDINATOR Temperature 36.3 C (97.4 F) 09/22/2024 1:04 PM CURRICULUM DEVELOPMENT COORDINATOR Respiratory Rate 18 09/22/2024 1:04 PM CURRICULUM DEVELOPMENT COORDINATOR Oxygen Saturation 97% 09/22/2024 1:04 PM CURRICULUM DEVELOPMENT COORDINATOR Inhaled Oxygen Concentration - - Weight 97.5 kg (214 lb 15.2 oz) 09/22/2024 9:41 AM CURRICULUM DEVELOPMENT COORDINATOR Height 182.9 cm (6') 09/22/2024 9:41 AM CURRICULUM DEVELOPMENT COORDINATOR Body Mass Index 29.15 09/22/2024 9:41 AM CURRICULUM DEVELOPMENT COORDINATOR Plan of Treatment Health Maintenance Due Date [...] 09/01/2025 09/01/2024 Medical Devices Implanted Type Area Mannequin Mounter Device Identifier Shelf Expiration Date Model / Serial / Lot [employer] 1.32mm 4.8mm Modify Ear T Tube Ventilation Ultrasil Sterile Blue [id number] - [id number] Implanted:Qty: 1 on 09/22/2024 by Laura Oakes DO at [facility] Right: Ear [employer] 07/13/2034 [id number] / / [id number] Procedures Procedure Name Priority Date/Time Associated Diagnosis Comments TRANSTHORACIC ECHO (TTE) COMPLETE W DOPPLER/CF WO CONTRAST Routine 12/17/2024 2:57 PM CDT Persistent atrial fibrillation (HCC) from Last 3 Months Results * TRANSTHORACIC ECHO (TTE) COMPLETE W DOPPLER/CF WO CONTRAST (12/17/2024 2:57 PM CDT) LV EF 45-50 % CONS SCIMAGE Anatomical Region Laterality Modality Ultrasound 12/17/2024 2:11 PM CDT Narrative 12/17/2024 4:20 PM CDT [facility] Cardiology [address], [place] [address] [address], [place] [address] P:[phone] P:[phone] Echocardiographic Report Patient Name: JIGARLINCOLN L : 1940 Study Date: 12/17/2024 2:11:41 PM Gender: M Tech: SCOTTY Location: [facility] Provider: CEDRIC DUMONT Height(Cm): 183 BSA: [...] FINDINGS: Interpretation Site: Exam was interpreted at [facility]. Left Ventricle: Normal left ventricular size. [...] Procedure Note Koki Jimenez MD - 12/17/2024 [facility] Cardiology [address] [facility] [address] [place] [id number] [address] [facility] [address], [place] [address] P:[phone] P:[phone] Echocardiographic Report Patient Name: LINCOLN KIMBALL L : 1940 Study Date: 12/17/2024 2:11:41 PM Gender: M Tech: [facility] Location: [facility] Provider: CEDRIC DUMONT Height(Cm): 183 BSA: [...] FINDINGS: Interpretation Site: Exam was interpreted at [facility]. Left Ventricle: Normal left ventricular size. [...] Jimenez MD 12/17/2024 4:20:12 PM CDT us Cderic Dumont MD CV ECHO PROCEDURES Final Result from Last 3 Months Insurance MEDICARE MEDICARE [facility] MEDICARE SUPPLEMENT Care Teams Durability Engineer Relationship Specialty Start Date End Date Demond Stark MD [facility] - General 07/23/11
--- OUTSIDE RECORDS SUMMARY | 2025-01-27 13:45 | XMS_ITS | Encounter Summary ---
Author Organization [facility] Medical Group Address [address] [facility] [address] [place] [address] Care Team Providers Care Physician Gynecologist Name Role Phone Demond Stark MD Primary Care Provider [phone] Encounter Details Date Type Department Care Team (Late st Contact Info) Description 10/16/2016 Orders Only [facility] ProviderTaylor MD [address] [place], [place] [id number] Social History Tobacco Use Types Packs/Day Years Used Date Smoking Tobacco: Former Cigarettes Q uit: 09/23/1969 Alcohol Use Standard Drinks/Week Comments Yes 0 (1 standard drink = 0.6 oz pur e alcohol) Sex and Gender Information Value Date Recorded Sex Assigned at Not on file Legal Sex Male 8:49 AM 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
--- OUTSIDE RECORDS SUMMARY | 2025-01-27 13:45 | XMS_ITS | Encounter Summary ---
Author Organization [facility] Address 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 Gender Identity Not on file Sexual Orientation Not on file documented as of this encounter Plan of Treatment Not on file documented as of this encounter Procedures Procedure Name Priority Date/Time Associated Diagnosis Comments CBC WITH DIFFERENTIAL Routine 10/14/2023 2:35 AM COMPANY TANKER TRUCK DRIVER TRIGLYCERIDE Routine 10/14/2023 2:35 AM COMPANY TANKER TRUCK DRIVER PHOSPHORUS Routine 10/14/2023 2:35 AM COMPANY TANKER TRUCK DRIVER MAGNESIUM LEVEL Routine 10/14/2023 2:35 AM COMPANY TANKER TRUCK DRIVER COMPREHENSIVE METABOLIC PANEL Routine 10/14/2023 2:35 AM COMPANY TANKER TRUCK DRIVER documented in this encounter Results * (ABNORMAL) TRIGLYCERIDE (10/14/2023 2:35 AM COMPANY TANKER TRUCK DRIVER) TRIGLYCERIDE 161(H) <150 mg/dL 10/14/2023 8:26 AM COMPANY TANKER TRUCK DRIVER [facility]ORAT[facility] SERVICES [facility] Blood Collection / Unknown 10/14/2023 2:35 AM COMPANY TANKER TRUCK DRIVER 10/14/2023 7:22 AM COMPANY TANKER TRUCK DRIVER Narrative [facility] - 10/14/2023 8:26 AM COMPANY TANKER TRUCK DRIVER TRIGLYCERIDES mg/dL Normal < 150 Borderline High 150 - 199 High 200 - 499 Very High >= 500 Based on AHA/NCEP Guidelines. us Erik Chairez MD CHEMISTRY ORDERABLES Final Resul t Performing Organization Address City/[facility]/ZIP Co de Phone Number [facility] CLIA# [id number] [place] [address] * PHOSPHORUS (10/14/2023 2:35 AM COMPANY TANKER TRUCK DRIVER) PHOSPHORUS 3.4 2.5 - 4.5 mg/dL 10/14/2023 8:26 AM COMPANY TANKER TRUCK DRIVER [facility] Blood Collection / Unknown 10/14/2023 2:35 AM COMPANY TANKER TRUCK DRIVER 10/14/2023 7:22 AM COMPANY TANKER TRUCK DRIVER us Erik Chairez MD CHEMISTRY ORDERABLES Final Resul t Performing Organization Address City/[facility] Co de Phone Number [id number] [address] [place] [address] * MAGNESIUM LEVEL (10/14/2023 2:35 AM COMPANY TANKER TRUCK DRIVER) MAGNESIUM 2.5 1.6 - 2.6 mg/dL 10/14/2023 8:26 AM COMPANY TANKER TRUCK DRIVER [facility] Gen110 [facility] Blood Collection / Unknown 10/14/2023 2:35 AM COMPANY TANKER TRUCK DRIVER 10/14/2023 7:22 AM COMPANY TANKER TRUCK DRIVER us Erik Chairez MD CHEMISTRY ORDERABLES Final Resul t Performing Organization Address City/[facility]/ZIP Co de Phone Number [id number] [address] [place] [address] * (ABNORMAL) CBC WITH DIFFERENTIAL (10/14/2023 2:35 AM COMPANY TANKER TRUCK DRIVER) [facility] WBC 9.2 4.5 - 10.5 K/uL 10/14/2023 8:02 AM [facility] LABOR[facility] RBC 3.58(L) 4.50 - 5.40 M/uL 10/14/2023 8:02 AM [facility] HEMOGLOBIN 11.0(L) 13.6 - 16.5 g/dL 10/14/2023 8:02 AM [facility] HEMATOCRIT 33.5(L) 40.0 - 48.0 % 10/14/2023 8:02 AM [facility] MCV 93.6 82.0 - 99.0 fL 10/14/2023 8:02 AM [facility] MCH 30.6 27.8 - 34.5 pg 10/14/2023 8:02 AM [facility] Gen110 [facility] MCHC 32.7 32.5 - 35.5 g/dL 10/14/2023 8:02 AM [facility] Gen110 [facility] RDW 17.7(H) 11.5 - 14.5 % 10/14/2023 8:02 AM [facility]OR[facility] PLATELETS 214 160 - 420 K/uL 10/14/2023 8:02 AM [facility] Gen110 [facility] MPV 9.2 8.7 - 12.7 fL 10/14/2023 8:02 AM [facility] Gen110 [facility] NEUTROPHILS 58 % 10/14/2023 8:02 AM [facility] LYMPHOCYTES 24 % 10/14/2023 8:02 AM [facility] MONOCYTES 8 % 10/14/2023 8:02 AM COMPANY TANKER TRUCK DRIVER [facility] EOSINOPHILS 9 % 10/14/2023 8:02 AM [facility] BASOPHILS 0 % 10/14/2023 8:02 AM [facility] NEUTROPHIL ABSOLUTE 5.40 1.90 - 7.00 K/uL 10/14/2023 8:02 AM [facility] Gen110 [facility] LYMPHOCYTE ABSOLUTE 2.20 0.70 - 4.50 K/uL 10/14/2023 8:02 AM [facility] MONOCYTE ABSOLUTE 0.70 0.10 - 1.30 K/uL 10/14/2023 8:02 AM [facility] EOSINOPHIL ABSOLUTE 0.90(H) 0.00 - 0.70 K/uL 10/14/2023 8:02 AM [facility]OR[facility] BASOPHILS ABSOLUTE 0.00 0.00 - 0.20 K/uL 10/14/2023 8:02 AM [facility] Blood Collection / Unknown 10/14/2023 2:35 AM COMPANY TANKER TRUCK DRIVER 10/14/2023 7:22 AM COMPANY TANKER TRUCK DRIVER Erik Chairez MD HEMATOLOGY ORDERABLES Final Resu lt [facility] CLIA# [id number] [place] [address] * (ABNORMAL) COMPREHENSIVE METABOLIC PANEL (10/14/2023 2:35 AM COMPANY TANKER TRUCK DRIVER) SODIUM 135(L) 136 - 145 mmol/L 10/14/2023 8:26 AM [facility] POTASSIUM 4.0 3.4 - 5.1 mmol/L 10/14/2023 8:26 AM [facility] CHLORIDE 97(L) 98 - 107 mmol/L 10/14/2023 8:26 AM [facility] CO2 24 22 - 29 mmol/L 10/14/2023 8:26 AM [facility] CALCIUM 9.5 8.6 - 10.4 mg/dL 10/14/2023 8:26 AM [facility] BUN 36(H) 6 - 20 mg/dL 10/14/2023 8:26 AM [facility] CREATININE 1.18(H) 0.67 - 1.17 mg/dL 10/14/2023 8:26 AM [facility] Gen110 [facility] Comment:The GFR result is no t clinically significant on patients <18 or >70 years of age. GLUCOSE 84 74 - 99 mg/dL 10/14/2023 8:26 AM [facility] TOTAL PROTEIN 7.4 6.3 - 8.7 g/dL 10/14/2023 8:26 AM [facility] ALBUMIN 3.6 3.5 - 5.2 g/dL 10/14/2023 8:26 AM [facility] BILIRUBIN TOTAL 0.6 0.2 - 1.1 mg/dL 10/14/2023 8:26 AM [facility] ALKALINE PHOSPHATASE 99 40 - 150 U/L 10/14/2023 8:26 AM [facility] AST 22 0 - 41 U/L 10/14/2023 8:26 AM [facility] ALT 16 0 - 41 U/L 10/14/2023 8:26 AM [facility] GFR >60 mL/min/1.7 3 sq meter 10/14/2023 8:26 AM [facility] Comment:eGFR calculated with 2020 CKD-EPI equation. Vegetarian diet, extremely high or low muscle mass, and may affect results. Cystatin C with Glomerular Filtration Rate is a suitable alternative for these patients. 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
--- OUTSIDE RECORDS SUMMARY | 2025-01-27 13:45 | XMS_ITS | Encounter Summary ---
Author Organization [facility] Address [address] [place] [address] Care Team Providers Care State Highway Police Officer Name Role Phone Unavailable Primary Care Provider Unavailabl e Encounter Details Date Type Department Care Team (Late st Contact Info) Description 10/10/2023 Lab Requisition [facility] Laboratory Services [address] [place] [address] [place] [address] [place] [address] Social History Tobacco Use Types Packs/Day Years Used Date Smoking Tobacco: Never Assessed Sex and Gender Information Value Date Recorded Sex Assigned at Not on file Legal Sex Male 9:18 AM ROOF SLATER Gender Identity Not on file Sexual Orientation Not on file documented as of this encounter Plan of Treatment Not on file documented as of this encounter Procedures Procedure Name Priority Date/Time Associated Diagnosis Comments CBC WITH DIFFERENTIAL Routine 10/10/2023 3:30 AM ROOF SLATER PTT Routine 10/10/2023 3:30 AM ROOF SLATER PROTIME-INR Routine 10/10/2023 3:30 AM ROOF SLATER PREALBUMIN Routine 10/10/2023 3:30 AM ROOF SLATER COMPREHENSIVE METABOLIC PANEL Routine 10/10/2023 3:30 AM ROOF SLATER documented in this encounter Results * PTT (10/10/2023 3:30 AM ROOF SLATER) PTT 23.4 23.1 - 37.1 seconds 10/10/2023 10:14 AM ROOF SLATER [facility] LABORATORY SERVICES [facility] Blood Collection / Unknown 10/10/2023 3:30 AM ROOF SLATER 10/10/2023 9:51 AM ROOF SLATER Erik Chairez MD HEMATOLOGY ORDERABLES Final Resu lt [facility] CLIA# [id number] [place] [address] * (ABNORMAL) PROTIME-INR (10/10/2023 3:30 AM ROOF SLATER) PROTIME 15.0(H) 11.5 - 14.7 Seconds 10/10/2023 10:14 AM ROOF SLATER [facility] LABORATORY [facility] INR 1.2(H) 0.9 - 1.1 10/10/2023 10:14 AM ROOF SLATER [facility] LABORAT[facility] Blood Collection / Unknown 10/10/2023 3:30 AM ROOF SLATER 10/10/2023 9:51 AM ROOF SLATER Erik Chairez MD HEMATOLOGY ORDERABLES Final Resu lt [facility] [employer] [facility] CLIA# [id number] [place] [address] * PREALBUMIN (10/10/2023 3:30 AM ROOF SLATER) PREALBUMIN 23 20 - 40 mg/dL 10/10/2023 2:24 PM ROOF SLATER [facility] LABORATORY [facility] Blood Collection / Unknown 10/10/2023 3:30 AM ROOF SLATER 10/10/2023 9:51 AM ROOF SLATER Erik Chairez MD CHEMISTRY ORDERABLES Final Resul t [facility] [employer] [facility] CLIA# [id number] [address] [place] [address] * (ABNORMAL) CBC WITH DIFFERENTIAL (10/10/2023 3:30 AM ROOF SLATER) [facility] WBC 10.1 4.5 - 10.5 K/uL 10/10/2023 11:06 AM [facility] RBC 3.85(L) 4.50 - 5.40 M/uL 10/10/2023 11:06 AM [facility] HEMOGLOBIN 11.6(L) 13.6 - 16.5 g/dL 10/10/2023 11:06 AM [facility] [employer] [facility] HEMATOCRIT 36.6(L) 40.0 - 48.0 % 10/10/2023 11:06 AM [facility] [employer] [facility] MCV 95.2 82.0 - 99.0 fL 10/10/2023 11:06 AM [facility] [employer] [facility] MCH 30.1 27.8 - 34.5 pg 10/10/2023 11:06 AM [facility] [employer] [facility] MCHC 31.6(L) 32.5 - 35.5 g/dL 10/10/2023 11:06 AM [facility] [employer] [facility] RDW 19.2(H) 11.5 - 14.5 % 10/10/2023 11:06 AM [facility] [employer] [facility] PLATELETS 250 160 - 420 K/uL 10/10/2023 11:06 AM [facility] [employer] [facility] MPV 9.8 8.7 - 12.7 fL 10/10/2023 11:06 AM [facility] [employer] [facility] NEUTROPHILS 72 % 10/10/2023 11:06 AM [facility] [employer] [facility] LYMPHOCYTES 15 % 10/10/2023 11:06 AM ROOF SLATER [facility]OR[facility] MONOCYTES 7 % 10/10/2023 11:06 AM ROOF SLATER [facility] EOSINOPHILS 5 % 10/10/2023 11:06 AM ROOF SLATER [facility] BASOPHILS 0 % 10/10/2023 11:06 AM [facility] LABORAT[facility] NEUTROPHIL ABSOLUTE 7.20(H) 1.90 - 7.00 K/uL 10/10/2023 11:06 AM [facility] [employer] [facility] LYMPHOCYTE ABSOLUTE 1.50 0.70 - 4.50 K/uL 10/10/2023 11:06 AM ROOF SLATER [facility]OR[facility] MONOCYTE ABSOLUTE 0.70 0.10 - 1.30 K/uL 10/10/2023 11:06 AM ROOF SLATER [facility] LABORATORY [facility] EOSINOPHIL ABSOLUTE 0.50 0.00 - 0.70 K/uL 10/10/2023 11:06 AM ROOF SLATER [facility] LABORAT[facility] BASOPHILS ABSOLUTE 0.00 0.00 - 0.20 K/uL 10/10/2023 11:06 AM ROOF SLATER [facility] [employer] [facility] Blood Collection / Unknown 10/10/2023 3:30 AM ROOF SLATER 10/10/2023 9:51 AM ROOF SLATER us Erik Chairez MD HEMATOLOGY ORDERABLES Final Resu lt [facility] CLIA# [id number] [place] [address] * (ABNORMAL) COMPREHENSIVE METABOLIC PANEL (10/10/2023 3:30 AM ROOF SLATER) SODIUM 142 136 - 145 mmol/L 10/10/2023 10:49 AM [facility] [employer] [facility] POTASSIUM 4.1 3.4 - 5.1 mmol/L 10/10/2023 10:49 AM [facility] [employer] [facility] CHLORIDE 104 98 - 107 mmol/L 10/10/2023 10:49 AM [facility] [employer] [facility] CO2 23 22 - 29 mmol/L 10/10/2023 10:49 AM [facility] [employer] [facility] CALCIUM 9.4 8.6 - 10.4 mg/dL 10/10/2023 10:49 AM [facility] [employer] [facility] BUN 34(H) 6 - 20 mg/dL 10/10/2023 10:49 AM [facility] [employer] [facility] CREATININE 1.24(H) 0.67 - 1.17 mg/dL 10/10/2023 10:49 AM [facility] LABORATORY [facility] Comment:The GFR result is no t clinically significant on patients <18 or >70 years of age. GLUCOSE 91 74 - 99 mg/dL 10/10/2023 10:49 AM [facility] TOTAL PROTEIN 7.4 6.3 - 8.7 g/dL 10/10/2023 10:49 AM [facility] ALBUMIN 3.6 3.5 - 5.2 g/dL 10/10/2023 10:49 AM [facility] BILIRUBIN TOTAL 0.6 0.2 - 1.1 mg/dL 10/10/2023 10:49 AM [facility] ALKALINE PHOSPHATASE 84 40 - 150 U/L 10/10/2023 10:49 AM [facility] AST 15 0 - 41 U/L 10/10/2023 10:49 AM [facility] ALT 13 0 - 41 U/L 10/10/2023 10:49 AM [facility] GFR 58 mL/min/1.7 3 sq meter 10/10/2023 10:49 AM [facility] Comment:eGFR calculated with 2020 CKD-EPI equation. Vegetarian diet, extremely high or low muscle mass, and may affect results. Cystatin C with Glomerular Filtration Rate is a suitable alternative for these patients. 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
--- OUTSIDE RECORDS SUMMARY | 2025-01-27 13:45 | XMS_ITS | Encounter Summary ---
Author Organization [facility] Healthcare Address [address] [place] [address] Care Team Providers Care Natural Fabricator Name Role Phone Demond Stark MD Primary Care Provider [phone] Encounter Details Date Type Department Care Team (Late st Contact Info) Description 01/19/2025 Telephone [facility] Medical [facility] Cardiology [address] [facility] [address] [place] [address] Mando Luna MD [address] [id number] Social History Tobacco Use Types Packs/Day Years [...] on file Legal Sex Male 8:49 AM SODA TESTER Gender Identity Not on file Sexual Orientation Not on file documented as of this encounter Ordered Prescriptions Prescription Sig Dispense Quantity Refills Last Filled Start Date End Date losartan (COZAAR) 25 mg tablet Take 1 tablet (25 mg total) by mouth daily 30 tablet 11 01/19/2025 01/19/2026 documented in this encounter Miscellaneous Notes * Telephone Encounter - Gladys Watt RN - 01/27/2025 12:59 PM CDT LM on VM informing pts that these are not side effects of losartan and advised them to try taking with some food or after eating to see if that helps for the next week and callback if it does not. * Telephone Encounter - Alina Bahena - 01/27/2025 11:39 AM CDT Pts stated that the pt has been having cramping in his stomach and has a bad taste in his mouth when he takes the losartan. She is wondering if there is any other medication they can try. Pleaseadvise Thank you Contact: * Addendum Note - Gladys Watt RN - 01/19/2025 4:09 PM CDTAddended by: GLADYS WATT on: 01/19/2025 04:09 PM Modules accepted: Orders * Telephone Encounter - Gladys Watt RN - 01/19/2025 4:08 PM CDT Spoke with pt, reviewed message from [facility] and he verbalized understanding. Sending Rx to pharm and lab orders to . Advised pt to monitor his BP about an hour or two after his morning medications andkeep a daily log. Advised him to contact us if he doesn't see improvement in his BP in a couple of weeks. * Telephone Encounter - Gladys Watt RN - 01/19/2025 12:34 PM CDT Spoke with pt and . They are concerned pts BP has been elevated for about the last 10 days: 162/90, 175/109, 173/92, 164/83, 149/87. Pt said he was on metoprolol at one point in time but it was discontinued during a hospitalization. Pt also noted he couldn't tolerate lisinopril a long time ago a s it gave him a chronic cough. is concerned with pts BP being so high and asked what MAF wouldrecommend? Will forward to [facility]. Please advise, thank you! * Telephone Encounter - Alina Bahena - 01/19/2025 12:01 PM CDT Pts called stating her husbands BP has been high for the past 10 days or so. She said that he is not on any BP meds and she thinks he needs to be on one his BP today was 162/90 she said that thebottom number ranges from 90 to 107 sometimes. Please advise she said no lisinopril because it causes him to have a chronic cough please advise she is requesting a call back with an update Thank you Contact: documented in this encounter Plan of Treatment Scheduled Orders Name Type Priority Associated Diagnoses Orde r Schedule Basic metabolic panel Lab Routine Essential hypertension Expected: 01/22/2025, Expires: 01/19/2026 documented as of this encounter Visit Diagnoses Diagnosis Essential hypertension- Primary Unspecified essential hypertension documented in this encounter Care Teams Natural Fabricator Relationship Specialty Start Date End Date Demond Stark MD PCP - General 07/23/11 documented as of this encounter
--- OUTSIDE RECORDS SUMMARY | 2025-01-27 13:45 | XMS_ITS | Encounter Summary ---
Author Organization [facility] Address [address] [place] [address] Care Team Providers Care Core Java Engineer Name Role Phone Unavailable Primary Care Provider Unavailabl e Encounter Details Date Type Department Care Team (Late st Contact Info) Description 10/20/2023 Lab Requisition [facility] Laboratory Services [address] [place] [address] [place] [address] [place] [address] Social History Tobacco Use Types Packs/Day Years Used Date Smoking Tobacco: Never Assessed Sex and Gender Information Value Date Recorded Sex Assigned at Not on file Legal Sex Male 9:18 AM COMPUTER GRAPHICS ILLUSTRATOR Gender Identity Not on file Sexual Orientation Not on file documented as of this encounter Plan of Treatment Not on file documented as of this encounter Procedures Procedure Name Priority Date/Time Associated Diagnosis Comments CBC WITH DIFFERENTIAL Routine 10/20/2023 2:20 AM COMPUTER GRAPHICS ILLUSTRATOR BASIC METABOLIC PANEL Routine 10/20/2023 2:20 AM COMPUTER GRAPHICS ILLUSTRATOR documented in this encounter Results * (ABNORMAL) CBC WITH DIFFERENTIAL (10/20/2023 2:20 AM COMPUTER GRAPHICS ILLUSTRATOR) WBC 8.3 4.5 - 10.5 K/uL 10/20/2023 5:25 AM COMPUTER GRAPHICS ILLUSTRATOR [facility] RBC 3.82(L) 4.50 - 5.40 M/uL 10/20/2023 5:25 AM COMPUTER GRAPHICS ILLUSTRATOR [facility] HEMOGLOBIN 11.2(L) 13.6 - 16.5 g/dL 10/20/2023 5:25 AM COMPUTER GRAPHICS ILLUSTRATOR [facility] HEMATOCRIT 35.0(L) 40.0 - 48.0 % 10/20/2023 5:25 AM COMPUTER GRAPHICS ILLUSTRATOR [facility] LABORATORY SERVICES [facility] MCV 91.6 82.0 - 99.0 fL 10/20/2023 5:25 AM COMPUTER GRAPHICS ILLUSTRATOR [facility] MCH 29.4 27.8 - 34.5 pg 10/20/2023 5:25 AM COMPUTER GRAPHICS ILLUSTRATOR [facility] LABORATORY SERVICES [facility] MCHC 32.1(L) 32.5 - 35.5 g/dL 10/20/2023 5:25 AM COMPUTER GRAPHICS ILLUSTRATOR [facility] RDW 17.4(H) 11.5 - 14.5 % 10/20/2023 5:25 AM COMPUTER GRAPHICS ILLUSTRATOR [facility] PLATELETS 255 160 - 420 K/uL 10/20/2023 5:25 AM COMPUTER GRAPHICS ILLUSTRATOR [facility] MPV 9.4 8.7 - 12.7 fL 10/20/2023 5:25 AM COMPUTER GRAPHICS ILLUSTRATOR [facility] NEUTROPHILS 60 % 10/20/2023 5:25 AM COMPUTER GRAPHICS ILLUSTRATOR [facility] LYMPHOCYTES 23 % 10/20/2023 5:25 AM COMPUTER GRAPHICS ILLUSTRATOR [employer] LABORATORY SERVICES [facility] MONOCYTES 6 % 10/20/2023 5:25 AM COMPUTER GRAPHICS ILLUSTRATOR [facility] EOSINOPHILS 11 % 10/20/2023 5:25 AM COMPUTER GRAPHICS ILLUSTRATOR [facility] BASOPHILS 1 % 10/20/2023 5:25 AM COMPUTER GRAPHICS ILLUSTRATOR [facility] NEUTROPHIL ABSOLUTE 4.90 1.90 - 7.00 K/uL 10/20/2023 5:25 AM COMPUTER GRAPHICS ILLUSTRATOR [facility] LYMPHOCYTE ABSOLUTE 1.90 0.70 - 4.50 K/uL 10/20/2023 5:25 AM COMPUTER GRAPHICS ILLUSTRATOR [employer] LABORATORY SERVICES [facility] MONOCYTE ABSOLUTE 0.50 0.10 - 1.30 K/uL 10/20/2023 5:25 AM COMPUTER GRAPHICS ILLUSTRATOR [facility] SERVICES [facility] EOSINOPHIL ABSOLUTE 0.90(H) 0.00 - 0.70 K/uL 10/20/2023 5:25 AM COMPUTER GRAPHICS ILLUSTRATOR [facility] BASOPHILS ABSOLUTE 0.00 0.00 - 0.20 K/uL 10/20/2023 5:25 AM [facility] Blood 10/20/2023 2:20 AM COMPUTER GRAPHICS ILLUSTRATOR 10/20/2023 5:15 AM COMPUTER GRAPHICS ILLUSTRATOR Erik Chairez MD HEMATOLOGY ORDERABLES Final Resu lt [facility] CLIA# [id number] [id number] [place] [address] * (ABNORMAL) BASIC METABOLIC PANEL (10/20/2023 2:20 AM COMPUTER GRAPHICS ILLUSTRATOR) SODIUM 140 136 - 145 mmol/L 10/20/2023 5:53 AM [facility] POTASSIUM 3.8 3.4 - 5.1 mmol/L 10/20/2023 5:53 AM [facility] CHLORIDE 101 98 - 107 mmol/L 10/20/2023 5:53 AM [facility] CO2 26 22 - 29 mmol/L 10/20/2023 5:53 AM [facility] CALCIUM 9.6 8.6 - 10.4 mg/dL 10/20/2023 5:53 AM [facility] BUN 30(H) 6 - 20 mg/dL 10/20/2023 5:53 AM [facility] CREATININE 0.89 0.67 - 1.17 mg/dL 10/20/2023 5:53 AM [facility] Comment:The GFR result is no t clinically significant on patients <18 or >70 years of age. GLUCOSE 110(H) 74 - 99 mg/dL 10/20/2023 5:53 AM [facility] GFR >60 mL/min/1.7 3 sq meter 10/20/2023 5:53 AM [facility] Comment:eGFR calculated with 2020 CKD-EPI equation. Vegetarian diet, extremely high or low muscle mass, and may affect results. Cystatin C with Glomerular Filtration Rate is a suitable alternative for these patients. 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
--- OUTSIDE RECORDS SUMMARY | 2025-01-27 13:45 | XMS_ITS | Clinical Summary ---
Author Organization [facility] Address [address] [facility] [place] [address] Care Team Providers Care Varnish Mixer Name Role Phone Demond Stark MD Primary Care Provider [phone] Source Comments [facility],non-owned Affiliates and Associated Physician Practices is amultiple site organization consisting of ambulatory clinics and hospital sitesin [place], [place], [place] and [place]. This disclosure is being madepursuant to the Care Everywhere program and may not contain all information available regarding this patient. Last updated 18.[facility] Allergies Active Allergy Reactions Criticality Noted Date [...] for 60 days 30 tablet 1 12/26/2024 Active Active Problems Problem Noted Date Diagnosed [...] 07/20/2013 Overview (01/01/2025): Hypertension Coronary arteriosclerosis in [place] artery 12/20 Overview (01/01/2025): CRNRY ATHRSCL NATVE VSSL 2010: Non STEMI and CABG x3 (HOBSON to the LAD, sequential RA to OM and D1) History of coronary artery bypass surgery 2009 Overview (01/01/2025): AORTOCORONARY BYPASS Encounters Date Type Department Care Team Description 01/01/2025 9:30 AM CDT Office Visit [facility] - Neurology [address] [facility], [place] [phone] Alberto Jeffers MD Dizziness (Primary Dx); Parkinsonism, unspecified Parkinsonism type (HCC) 01/01/2025 Travel 12/22/2024 1:23 PM CDT Anesthesia Event [facility] ENDOSCOPY [address] [place] [address] Nnamdi Miller DO Dobbs, Kristin L, ALMOND PASTE MIXER-SAWING AND ASSEMBLY SUPERVISOR 12/22/2024 1:00 PM CDT - 12/22/2024 2:30 PM CDT Surgery [facility] [address] [place] [address] Callie Mendoza DO EGD w/Z-poem 12/22/2024 11:53 AM CDT - 12/25/2024 4:30 PM CDT Hospital Encounter [facility] SHORT STAY UNIT [address] [place] [phone] Callie Mendoza DO Vaidyan, Philip B, MD Surgery General Discharge Disposition: Home or Self Care 12/22/2024 Travel 12/16/2024 Telephone [facility] ENDOSCOPY [address] [place] [address] Alina Hinojosa Procedure (Procedure Confirmation) 12/08/2024 Telephone [facility] [place] [address] [place] [address] [place] [phone] Karthik Keyes, wagon driver salesperson (EGD w/Zpoem for zenkers with Dr. Mendoza for patient seen in her clinic) 12/07/2024 8:13 AM CDT - 12/07/2024 11:59 PM CDT Hospital Encounter [facility] DIAGNOSTIC RAD [address] [place] [address] Callie Mendoza DO Discharge Disposition: Home or Self Care 11/26/2024 Telephone [facility] - [facility] [address] [place] [phone] Ayden Chavis, RN Appointment 11/20/2024 9:00 AM BAGGAGE PORTER HEAD Office Visit [facility] - GI [address] [place] [phone] Callie Mendoza DO Zenker's diverticulum (Primary Dx); Frailty; Aspiration pneumonia due to gastric secretions, unspecified laterality, unspecified part of lung 11/20/2024 Travel 11/19/2024 Telephone [facility] [address] [place] [phone] Neel Naylor MD Appointment 11/02/2024 Orders Only [facility] - Neurology [address] [place] [phone] Alberto Jeffers MD Falls ; Cerebrovascular accident (CVA), unspecified mechanism; Type 2 diabetes mellitus with other specified complication, unspecified whether long-term insulin use from Last 3 Months Immunizations Immunization Administration [...] and heating? Not hard at all 12/25/2024 [facility] [place] [facility] Occupat ional Health - Occupational Stress [...] any time in the past 12 m [facility], were you homeless or living in a long-term (including now)? 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 Male 5:43 PM BAGGAGE PORTER HEAD Gender Identity Not on file Sexual Orientation [...] Description 02/05/2025 8:30 AM CDT Office Visit [facility] [address] [facility] [place] [phone] KellyCallieDO [address] [facility] [address] [place] [phone] 04/07/2025 2:00 PM CDT Office Visit [facility] - Neurology [address] [facility], [place] [address] Venus Mckinley APRN-PET TECHNOLOGIST [address] [facility] [address] [place] [phone] Health Maintenance Due Date Last Done Comments [...] Patient-Stated? Author Nutrition General Improving( 10:12 AM BAGGAGE PORTER HEAD) Yohana Gomez, RN Note: Expected end date: Working on plan Nutritional status is maintained or improving. Interventions: Take nutritional supplements as ordered Collaborate with the clinical art psychotherapist or therapist Oral care Use soft toothbrushes Keep hydrated [...] TUBE NOTE Routine 12/22/2024 1:40 PM CDT OR ENDOSCOPIC ULTRASOUND EXAM 12/22/2024 1:19 PM CDT Zenker's diverticulum EGD Routine 12/22/2024 1:15 PM CDT FL ESOPHAGRAM Routine 12/07/2024 9:37 AM CDT Zenker's diverticulum from Last 3 Months Results * (ABNORMAL) CBC W/O DIFFERENTIAL (12/25/2024 12:59 AM CDT) Only the most recent of3 resultswithin the time period is included. WBC 7.6 4.0 - 10.7 x10E9/L 12/25/2024 1:22 AM [facility] RBC Count 4.35 4.30 - 5.80 x10E12/L 12/25/2024 1:22 AM [facility] Hemoglobin 13.5 13.3 - 17.5 g/dL 12/25/2024 1:22 AM [facility] Hematocrit 40.0 38.7 - 51.1 % 12/25/2024 1:22 AM [facility] MCV 92.0 80.0 - 98.0 fL 12/25/2024 1:22 AM [facility] MCH 31.0 26.7 - 33.6 pg 12/25/2024 1:22 AM [facility] MCHC 33.8 31.7 - 36.3 g/dL 12/25/2024 1:22 AM [facility] RDW-CV 12.8 11.3 - 14.8 % 12/25/2024 1:22 AM [facility] Platelet Count 163 150 - 420 x10E9/L 12/25/2024 1:22 AM [facility] MPV 11.7(H) 7.8 - 11.4 fL 12/25/2024 1:22 AM [facility] Blood BLOOD SPECIMEN / Unknown Lab Venipuncture / Unknown 12/25/2024 12:59 AM CDT 12/25/2024 1:12 AM CDT Yasir Boyce MD LAB - HEMATOLOGY ORDERABLES Final Result [facility] [address] [place] [address], [facility] [phone] * (ABNORMAL) RENAL FUNCTION PANEL (12/25/2024 12:59 AM [facility]) Only the most recent of4 resultswithin the time period is included. BUN 21 7 - 26 mg/dL 12/25/2024 1:43 AM [facility] Creatinine 1.01 0.71 - 1.16 mg/dL 12/25/2024 1:43 AM [facility] Sodium 140 136 - 145 mmol/L 12/25/2024 1:43 AM [facility] Potassium 4.0 3.5 - 4.5 mmol/L 12/25/2024 1:43 AM [facility] Chloride 105 98 - 107 mmol/L 12/25/2024 1:43 AM [facility] CO2 27 22 - 29 mmol/L 12/25/2024 1:43 AM [facility] Glucose 109(H) 70 - 99 mg/dL 12/25/2024 1:43 AM [facility] Albumin 3.7 3.4 - 5.0 g/dL 12/25/2024 1:43 AM [facility] Calcium 9.8 8.4 - 10.2 mg/dL 12/25/2024 1:43 AM [facility] Phosphorus 3.2 2.8 - 5.1 mg/dL 12/25/2024 1:43 AM [facility] Anion Gap 8 6 - 16 12/25/2024 1:43 AM [facility] BUN/Creatinine Ratio 21 7 - 23 12/25/2024 1:43 AM [facility] Osmolality Calculated 294 275 - 295 mOsm/kg 12/25/2024 1:43 AM [facility] eGFR by CKD-EPI 73(L) >=90 mL/min/1.7 3 m2 12/25/2024 1:43 AM [facility] Blood BLOOD SPECIMEN / Unknown Lab Venipuncture / Unknown 12/25/2024 12:59 AM CDT 12/25/2024 1:07 AM CDT us Yasir Boyce MD LAB - CHEMISTRY ORDERABLES F inal Result Performing Organization Address [facility] Co de Phone Number [address] [address], [facility] [phone] * MAGNESIUM BLOOD (12/25/2024 12:59 AM CDT) Only the most recent of3 resultswithin the time period is included. Magnesium 2.0 1.6 - 2.6 mg/dL 12/25/2024 1:43 AM CDT [facility] Blood BLOOD SPECIMEN / Unknown Lab Venipuncture / Unknown 12/25/2024 12:59 AM CDT 12/25/2024 1:07 AM CDT us Yasir Boyce MD LAB - CHEMISTRY ORDERABLES F inal Result Performing Organization Address [facility] Co de Phone Number [address] [address], [facility] [phone] * FL SWALLOWING FUNCTION STUDY (12/24/2024 9:33 [...] Tube Placement: Patient Location: OR. Procedure: intubation (14786) Procedure Section: Sedation: under general anesthesia. Indications [...] #1: Nnamdi Miller DO, Performed the procedure. Adriánamada Angela [facility] ORDERA BLES Final Result * [...] clips) were successfully placed (MR conditional). Clip lens grinder rough: POPSUGAR. There was no bleeding at the end [...] entire procedure. 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 All rights reserved. The codes documented in this report are preliminary and upon assistant engineer review may be revised to meet current compliance requirements. Callie Mendoza DO 12/22/2024 7:31:42 PM This report has been signed electronically. Note Initiated On: 12/22/2024 1:15 PM Number of Addenda: [address] [address] [facility] PROVATION 12/22/2024 1:15 PM CDT Callie Mendoza DO GI PROCEDURE ORDERABLES Edited R esult - Final [facility] PROVLOY from Last 3 Months Insurance MEDICARE FOR[facility]LY [facility] [address] [place] [phone] MEDICARE Advance Directives * Full Code (Latest Code Status on File) Date Activated Date Inactivated Comments 12/22/2024 4:39 PM 12/25/2024 7:01 PM Care Teams Varnish Mixer Relationship Specialty Start Date End Date Demond Stark MD [address] [place] [address] [facility] - General 10/03/15
[2025-01-27 14:59] LABS: Hematocrit 39.1 % (42.0-52.0); Hemoglobin 12.3 g/dL (14.0-18.0); Mean Corpuscular HGB Conc 31.5 g/dl (32-36); Mean Corpuscular Hemoglobin 30.9 pg (26-34); Mean Corpuscular Volume 98.2 fl (80-100); Mean Platelet Volume 10.7 fl (7.4-10.4); Platelet Count Result 184 k/mm3 (150-375); Red Blood Count 3.98 M/mm3 (4.6-6.20); Red Cell Distribution Width 13.5 % (11.5-14.5); White Blood Count 7.1 K/mm3 (4.5-10.0)
[2025-01-27 17:31] LABS: Iron 68 ug/dL (49-181)
[2025-01-27 17:42] LABS: Percent Iron Saturation 25 % (20-50)
== END 2025-01-27 13:36 | disposition home or self-care (01) ==
PROVIDERS: PCP Family Medicine; Visit Provider Nurse Practitioner Family
DX: U07.1 COVID-19 (principal); D63.8 Anemia in other chronic diseases classified elsewhere
CPT/HCPCS: 36415; 83540; 83550; 84439; 84443; 85027

== ENCOUNTER 2025-03-04 13:15 | Outpatient (CLI) | payer MEDICARE, SELFPAY ==
[2025-03-04 13:42] LABS: Hematocrit 38.9 % (42.0-52.0); Hemoglobin 12.3 g/dL (14.0-18.0); Mean Corpuscular HGB Conc 31.6 g/dl (32-36); Mean Corpuscular Hemoglobin 31.1 pg (26-34); Mean Corpuscular Volume 98.2 fl (80-100); Mean Platelet Volume 10.4 fl (7.4-10.4); Platelet Count Result 166 k/mm3 (150-375); Red Blood Count 3.96 M/mm3 (4.6-6.20); Red Cell Distribution Width 13.3 % (11.5-14.5); White Blood Count 7.3 K/mm3 (4.5-10.0)
--- OUTSIDE RECORDS SUMMARY | 2025-03-04 13:50 | XMS_ITS | Encounter Summary ---
Author Organization [facility] Address [address] [place] [address] Care Team Providers Care Manufacturing Lead Name Role Phone Demond Stark MD Primary Care Provider [phone] Encounter Details Date Type Department Care Team (Late Contact Info) Description 06/28/2023 Lab Requisition [facility] - DermPath Lab [address] [facility] [place] [phone] Jaxon Anaya MD [address] [place], [place] [phone] Social History Tobacco Use Types Packs/Day Years Used Date Smoking Tobacco: Former Cigarettes Q uit: 09/23/1969 Smokeless Tobacco: Never Alcohol Use Standard Drinks/Week Comments Yes 0 (1 standard drink = 0.6 oz pur e alcohol) Sex and Gender Information Value Date Recorded Sex Assigned at Not on file Legal Sex Male 5:43 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 Gender Identity Not on file Sexual Orientation Not on file documented as of this encounter Plan of Treatment Upcoming Encounters Date Type Department Care Team (Late Contact Info) Description 04/07/2025 2:00 PM CDT Office Visit [facility] - Neurology [address] [facility], [place] [phone] Venus Mckinley APRN-RISSA [address] [phone] 04/29/2025 10:00 AM CDT Appointment [facility] DIAGNOSTIC RAD [address] [place] [phone] Callie Mendoza DO [address] [facility] [address] FLO[address] [place] [phone] 02/04/2026 9:00 AM CDT Office Visit [facility] - [address] [facility], [place] [phone] Callie Mendoza DO [address] [facility] [address] [place] [phone] documented as of this encounter Procedures Procedure Name Priority Date/Time Associated Diagnosis Comments DERMATOPATHOLOGY Routine 06/26/2023 12:0 0 AM CDT documented in this encounter Results * DERMATOPATHOLOGY (06/26/2023 12:00 AM CDT) Case Report Dermatopathology Report Case: [id number] Authorizing Provider: Jaxon Anaya MD Collected: 06/26/2023 12:00 AM Ordering Location: [facility] DermPath Lab Received: 06/28/2023 09:48 AM Pathologist: Mackenzie Ureña MD Specimen: Skin, right paraspinal mid back 3 4:58 PM CDT DERMATOPATHOLOGY LABORATORY Final Diagnosis Specimen A. SKIN, right paraspinal mid back: EPIDERMOID CYST WITH EVIDENCE OF RUPTURE (L72.0) 3 4:58 PM CDT DERMATOPATHOLOGY LABORATORY at 1658 CDT Clinical History R/O Cyst 3 4:58 PM CDT DERMATOPATHOLOGY LABORATORY Gross Description Specimen A: Received is one formalin filled container labeled with the patient's name and designated right paraspinal mid back.The specimen consists of an ellipse measuring [id number] mm and is oriented with the suture/notch [...] characteristic determined by the Dermatopathology Laboratory at [facility], directed by Dr. Georgina Young. These tests need not be, and therefore are not, approved by the [place] Food and Drug Administration. The tests are used for clinical purposes. Billing Codes Specimen Charges Stain Charges 81345 1 3 4:58 PM CDT DERMATOPATHOLOGY LABORATORY Embedded Images 3 4:58 PM CDT DERMATOPATHOLOGY LABORATORY Pathology/Cytolog y TISSUE SPECIMEN FROM SKIN / Unknown 06/26/2023 06/28/2023 9:48 AM CDT Jaxon Anaya MD LAB - PATHOLOGY/CYTOLOGY ORD ERABLES Final Result DERMATOPATHOLOGY LABORATORY [facility] - Department of Dermatology [facility] Medicine [address] [place] [address], [address] [phone] documented in this encounter Visit Diagnoses Not on filedocumented in this encounter Care Teams Manufacturing Lead Relationship Specialty Start Date End Date Demond Stark MD [address] [place] [address] PCP - General 10/03/15 documented as of this encounter
--- OUTSIDE RECORDS SUMMARY | 2025-03-04 13:50 | XMS_ITS | Referral Summary ---
Author Organization [facility] Address [address] [place] [address] Care Team Providers Care Universal Grinder Set Up Operator Name Role Phone Demond Stark MD Primary Care Provider [phone] Encounters Date Type Department Care Team Description 03/01/2025 Telephone [facility] Medical [facility] Cardiology [address] [place] [address] [address] [place] [phone] Mando Dumont MD 01/19/2025 Telephone [facility] Cardiology [address] [place] [address] [address] [place] [phone] Mando Dumont MD 12/21/2024 Results Follow-Up [facility] Cardiology [address] [place] [address] [place] [phone] Mando Dumont MD Transthoracic Echo (TTE) Complete W Doppler/CF 12/17/2024 2:00 PM CDT Ancillary Procedure [facility] Medical [facility] Cardiology [address] [place] [address] [address] [place] [address] Persistent atrial fibrillation (HCC) from Last 3 Months Allergies Active Allergy Reactions Criticality Noted Date Comments Diphenhydramine Hallucinations Medium 11/27/2023 Was not able to sleep and made him more anxious Lisinopril Cough Low Reaction: Cough, Pravastatin Muscle pain Medium Reaction: Muscular Pain, Quetiapine Other (See comments) Low 06/05/2024 Hallucinations, insomnia Simvastatin Muscle pain Medium Reaction: Muscular Pain, Aceqhpw-Dtb-Zcd Reductase Inhibitors Muscle pain,Other (See comments) Medium 10/03/2015 Pt reports leg weakness/heavine ss when taking zocor. Medications levothyroxine (SYNTHROID) 112 mcg tablet Take 1 tablet (112 mcg total) by mouth health professional before breakfast Active aspirin 81 mg tablet Take 1 tablet (81 mg total) by mouth daily Active famotidine (PEPCID) 20 mg tablet Take 1 tablet (20 mg total) by mouth nightly as needed 11/26/19 24 Active docusate sodium (DOK) 100 mg tabletIndicati ons:constipati on Take 1 tablet (100 mg total) by mouth 2 (two) times a day Active polyethylene glycol (MIRALAX) 17 gram/dose bulk powder Take 17 g by mouth daily Active folic acid (FOLVITE) 400 mcg tablet Take 2 tablets (800 mcg total) by mouth daily Active SIMETHICONE ORAL 2 (two) times a day 04/16/20 24 Active pyridoxine (VITAMIN B-6) 50 mg tablet Take 1 tablet (50 mg total) by mouth daily Active loratadine (CLARITIN) 10 mg tablet Take 1 tablet (10 mg total) by mouth daily Active carbidopa-levo dopa (SINEMET) 25-100 mg per tablet Take 1 tablet by mouth 3 (three) times a day Active ciprofloxacin (CILOXAN) 0.3 % ophthalmic solution 5 drops into Right EAR, NOT EYE, twice daily for 5 days 09/22/20 24 Active losartan (COZAAR) 25 mg tablet Take 1 tablet (25 mg total) by mouth daily 30 tablet 11 01/20/20 25 026 Active rivaroxaban (Xarelto) 20 mg tablet TAKE 1 TABLET BY MOUTH ONCE DAILY WITH DINNER 90 tablet 1 03/01/20 25 Active rivaroxaban (Xarelto) 20 mg tablet TAKE 1 TABLET BY MOUTH ONCE DAILY WITH DINNER 90 tablet 2 03/31/20 24 025 Discontinued Active Problems Problem Noted Date Diagnosed Date Dysfunction of right eustachian tube 08/31/2024 Assessment & Plan (10/05/2024 10:54 AM FOOD SERVICE): Avoid ear cleaning techniques Avoid water to ears Follow up in 9 months for right ear tube check, earlier with ear drainage Assessment & Plan (08/31/2024 11:40 AM FOOD SERVICE): Right myringotomy with T-tube placement Risks and [...] 07/09/2024 Assessment & Plan (08/31/2024 11:39 AM FOOD SERVICE): Right myringotomy with T-tube placement Risks and [...] 08/07/2017 Assessment & Plan (08/07/2017 6:01 PM FOOD SERVICE): Has had elevated LFTs and a fatty liver. Bradycardia 08/07/2017 Assessment & Plan (08/07/2017 5:58 PM FOOD SERVICE): Asymptomatic bradycardia, on low-dose metoprolol which may eventually need to be reduced or discontinued. Traumatic subdural hematoma of neuraxis 10/15/19 17 Overview (12/28/2016): Traumatic subdural hematoma without loss of consciousness, sequela Statin intolerance 10/15/2016 Overview (12/28/2016): Statin intolerance Essential hypertension 07/20/2013 Overview (12/28/2016): Hypertension Assessment & Plan (08/07/2017 5:57 PM FOOD SERVICE): Hypertension is not under good control; reviewing [...] HYPERLIPIDEMIA Assessment & Plan (08/07/2017 6:03 PM FOOD SERVICE): Has refued further attempts at statin therapy. History of coronary artery bypass surgery 2009 Overview (12/26/2016): AORTOCORONARY BYPASS Coronary arteriosclerosis in [place] artery 12/20 Overview (08/07/2017): CRNRY ATHRSCL NATVE VSSL 2009: Non STEMI and CABG x3 (HOBSON to the LAD, sequential RA to OM and D1) Assessment & Plan (08/07/2017 6:00 PM FOOD SERVICE): 2009: Non STEMI and CABG x3 (HOBSON [...] 03/04/2018 Assessment & Plan (08/07/2017 5:58 PM FOOD SERVICE): Patient is going to have knee surgery [...] on file Legal Sex Male 8:49 AM FOOD SERVICE Gender Identity Not on file Sexual Orientation Not on file Last Filed Vital Signs Vital Sign Reading Time Taken Comments Blood Pressure 160/88 09/22/2024 1:04 PM FOOD SERVICE Pulse 83 09/22/2024 1:04 PM FOOD SERVICE Temperature 36.3 C (97.4 F) 09/22/2024 1:04 PM FOOD SERVICE Respiratory Rate 18 09/22/2024 1:04 PM FOOD SERVICE Oxygen Saturation 97% 09/22/2024 1:04 PM FOOD SERVICE Inhaled Oxygen Concentration - - Weight 97.5 kg (214 lb 15.2 oz) 09/22/2024 9:41 AM FOOD SERVICE Height 182.9 cm (6') 09/22/2024 9:41 AM FOOD SERVICE Body Mass Index 29.15 09/22/2024 9:41 AM FOOD SERVICE Plan of Treatment Not on file Medical Devices Implanted Type Area Phlebotomy Technician Device Identifier Shelf Expiration Date Model / Serial / Lot [employer] 1.32mm 4.8mm Modify Ear T Tube Ventilation Ultrasil Sterile Blue [id number] - [id number] Implanted:Qty: 1 on 09/22/2024 by Laura Oakes DO at [facility] Right: Ear [employer] 07/13/2034 [id number] / / [id number] Procedures Procedure Name Priority Date/Time Associated Diagnosis Comments TRANSTHORACIC ECHO (TTE) COMPLETE W DOPPLER/CF WO CONTRAST Routine 12/17/2024 2:57 PM CDT Persistent atrial fibrillation (HCC) from Last 3 Months Results * TRANSTHORACIC ECHO (TTE) COMPLETE W DOPPLER/CF WO CONTRAST (12/17/2024 2:57 PM CDT) LV EF 45-50 % CONS SCIMAGE Anatomical Region Laterality Modality Ultrasound 12/17/2024 2:11 PM CDT Narrative 12/17/2024 4:20 PM CDT [facility] Cardiology [address], [place] [address] [address], [place] [address] P:[phone] P:[phone] Echocardiographic Report Patient Name: OMAR KIMBALL L : 1940 Study Date: 12/17/2024 2:11:41 PM Gender: M Tech: [facility] Location: [place] Ref Provider: MANDO DUMONT Height(Cm): 183 BSA: 2.22 Weight(Kg): 97.1 Heart Rate: 85 BP: 160 / 88 Quality: Good Order Provider: MANDO DUMNOT PROCEDURES: Echocardiographic Report: Transthoracic echocardiogram with complete [...] FINDINGS: Interpretation Site: Exam was interpreted at [facility]. Left Ventricle: Normal left ventricular size. [...] Procedure Note Koki Jimenez MD - 12/17/2024 [facility] Cardiology [address] [facility] [address], [place] [address] [address] [facility] [address], [place] [address] P:[phone] P:[phone] Echocardiographic Report Patient Name: OMAR KIMBALL L : 1940 Study Date: 12/17/2024 2:11:41 PM Gender: M Tech: [facility] Location: [facility] Provider: MANDO DUMONT Height(Cm): 183 BSA: 2.22 [...] FINDINGS: Interpretation Site: Exam was interpreted at [facility]. Left Ventricle: Normal left ventricular size. [...] from Last 3 Months Insurance MEDICARE MEDICARE [facility] MEDICARE SUPPLEMENT Member Subscriber Plan / Payer (Ef fective 2006-Present) Name:Omar Kimball Taylor Relation to Subscriber:Self Name:Omar Kimball Taylor Payer ID:[id number] Type:COMMERCIAL Address: [address] [place] [id number] Care Teams Universal Grinder Set Up Operator Relationship Specialty Start Date End Date Demond Stark MD PCP - General 07/23/11
--- OUTSIDE RECORDS SUMMARY | 2025-03-04 13:50 | XMS_ITS | Encounter Summary ---
Author Organization [facility] Address [address] [place] [address] Care Team Providers Care Rn Correctional Name Role Phone Unavailable Primary Care Provider Unavailabl e Encounter Details Date Type Department Care Team (Late st Contact Info) Description 11/07/2023 Lab Requisition [facility] Laboratory Services [address] [place] [address] [place] [address] [place] [address] Social History Tobacco Use Types Packs/Day Years Used Date Smoking Tobacco: Never Assessed Sex and Gender Information Value Date Recorded Sex Assigned at Not on file Legal Sex Male 9:18 AM EMERGENCY VEHICLE OPERATIONS INSTRUCTOR Gender Identity Not on file Sexual Orientation Not on file documented as of this encounter Plan of Treatment Not on file documented as of this encounter Procedures Procedure Name Priority Date/Time Associated Diagnosis Comments CBC WITH DIFFERENTIAL Routine 11/07/2023 4:30 AM EMERGENCY VEHICLE OPERATIONS INSTRUCTOR BASIC METABOLIC PANEL Routine 11/07/2023 4:30 AM EMERGENCY VEHICLE OPERATIONS INSTRUCTOR documented in this encounter Results * (ABNORMAL) CBC WITH DIFFERENTIAL (11/07/2023 4:30 AM EMERGENCY VEHICLE OPERATIONS INSTRUCTOR) WBC 9.4 4.5 - 10.5 K/uL 11/07/2023 8:10 AM EMERGENCY VEHICLE OPERATIONS INSTRUCTOR [facility] LABORATORY SERVICES - [facility] RBC 4.06(L) 4.50 - 5.40 M/uL 11/07/2023 8:10 AM EMERGENCY VEHICLE OPERATIONS INSTRUCTOR [facility] LABORATORY [facility] HEMOGLOBIN 11.9(L) 13.6 - 16.5 g/dL 11/07/2023 8:10 AM EMERGENCY VEHICLE OPERATIONS INSTRUCTOR [facility] LABORATORY [facility] HEMATOCRIT 37.1(L) 40.0 - 48.0 % 11/07/2023 8:10 AM EMERGENCY VEHICLE OPERATIONS INSTRUCTOR [facility] LABORATORY SERVICES [facility] MCV 91.5 82.0 - 99.0 fL 11/07/2023 8:10 AM EMERGENCY VEHICLE OPERATIONS INSTRUCTOR [facility] LABORATORY SERVICES - [facility] MCH 29.4 27.8 - 34.5 pg 11/07/2023 8:10 AM EMERGENCY VEHICLE OPERATIONS INSTRUCTOR [facility] LABORATORY SERVICES [facility] MCHC 32.1(L) 32.5 - 35.5 g/dL 11/07/2023 8:10 AM EMERGENCY VEHICLE OPERATIONS INSTRUCTOR [facility] LABORATORY SERVICES [facility] RDW 16.9(H) 11.5 - 14.5 % 11/07/2023 8:10 AM EMERGENCY VEHICLE OPERATIONS INSTRUCTOR [facility] LABORATORY SERVICES [facility] PLATELETS 270 160 - 420 K/uL 11/07/2023 8:10 AM EMERGENCY VEHICLE OPERATIONS INSTRUCTOR [facility] LABORATORY SERVICES [facility] MPV 10.0 8.7 - 12.7 fL 11/07/2023 8:10 AM EMERGENCY VEHICLE OPERATIONS INSTRUCTOR [facility] LABORATORY SERVICES [facility] NEUTROPHILS 61 % 11/07/2023 8:10 AM EMERGENCY VEHICLE OPERATIONS INSTRUCTOR [facility] LABORATORY SERVICES [facility] LYMPHOCYTES 21 % 11/07/2023 8:10 AM EMERGENCY VEHICLE OPERATIONS INSTRUCTOR [facility] SERVICES [facility] MONOCYTES 6 % 11/07/2023 8:10 AM EMERGENCY VEHICLE OPERATIONS INSTRUCTOR [facility] LABORATORY SERVICES [facility] EOSINOPHILS 11 % 11/07/2023 8:10 AM EMERGENCY VEHICLE OPERATIONS INSTRUCTOR [facility] LABORATORY SERVICES [facility] BASOPHILS 1 % 11/07/2023 8:10 AM EMERGENCY VEHICLE OPERATIONS INSTRUCTOR [facility] LABORATORY SERVICES [facility] NEUTROPHIL ABSOLUTE 5.70 1.90 - 7.00 K/uL 11/07/2023 8:10 AM EMERGENCY VEHICLE OPERATIONS INSTRUCTOR [facility] LABORATORY SERVICES [facility] LYMPHOCYTE ABSOLUTE 2.00 0.70 - 4.50 K/uL 11/07/2023 8:10 AM EMERGENCY VEHICLE OPERATIONS INSTRUCTOR [facility] MONOCYTE ABSOLUTE 0.60 0.10 - 1.30 K/uL 11/07/2023 8:10 AM EMERGENCY VEHICLE OPERATIONS INSTRUCTOR [facility] LABORATORY SERVICES [facility] EOSINOPHIL ABSOLUTE 1.00(H) 0.00 - 0.70 K/uL 11/07/2023 8:10 AM EMERGENCY VEHICLE OPERATIONS INSTRUCTOR [facility] LABORATORY SERVICES [facility] BASOPHILS ABSOLUTE 0.10 0.00 - 0.20 K/uL 11/07/2023 8:10 AM [facility] Blood 11/07/2023 4:30 AM EMERGENCY VEHICLE OPERATIONS INSTRUCTOR 11/07/2023 8:06 AM EMERGENCY VEHICLE OPERATIONS INSTRUCTOR us Erik Chairez MD HEMATOLOGY ORDERABLES Final Resu lt [facility] CLIA# [id number] [address] [place] [address] * (ABNORMAL) BASIC METABOLIC PANEL (11/07/2023 4:30 AM EMERGENCY VEHICLE OPERATIONS INSTRUCTOR) SODIUM 137 136 - 145 mmol/L 11/07/2023 8:41 AM [facility] POTASSIUM 4.2 3.4 - 5.1 mmol/L 11/07/2023 8:41 AM [facility] CHLORIDE 100 98 - 107 mmol/L 11/07/2023 8:41 AM [facility] CO2 22 22 - 29 mmol/L 11/07/2023 8:41 AM [facility] CALCIUM 9.9 8.6 - 10.4 mg/dL 11/07/2023 8:41 AM [facility] BUN 41(H) 6 - 20 mg/dL 11/07/2023 8:41 AM [facility] CREATININE 1.03 0.67 - 1.17 mg/dL 11/07/2023 8:41 AM [facility] Comment:The GFR result is no t clinically significant on patients <18 or >70 years of age. GLUCOSE 109(H) 74 - 99 mg/dL 11/07/2023 8:41 AM [facility] GFR >60 mL/min/1.7 3 sq meter 11/07/2023 8:41 AM [facility] Comment:eGFR calculated with 2020 CKD-EPI equation. Vegetarian diet, extremely high or low muscle mass, and may affect results. Cystatin C with Glomerular Filtration Rate is a suitable alternative for these patients. ANION GAP 15 8 - 16 mmol/L 11/07/2023 8:41 AM EMERGENCY VEHICLE OPERATIONS INSTRUCTOR [facility] LABORATORY SERVICES [facility] Blood 11/07/2023 4:30 AM EMERGENCY VEHICLE OPERATIONS INSTRUCTOR 11/07/2023 8:12 AM EMERGENCY VEHICLE OPERATIONS INSTRUCTOR Erik Chairez MD CHEMISTRY ORDERABLES Final Resul t [facility] LABORATORY [facility] CLIA# [id number] [address] [place] [address] documented in this encounter Visit Diagnoses Not on filedocumented in this encounter Additional Health Concerns Infection Onset Date Last Indicated Resolved Time 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
--- OUTSIDE RECORDS SUMMARY | 2025-03-04 13:50 | XMS_ITS | Encounter Summary ---
Author Organization [facility] Address [address] [place] [address] Care Team Providers Care Backbreaker Name Role Phone Unavailable Primary Care Provider Unavailabl e Encounter Details Date Type Department Care Team (Late st Contact Info) Description 10/10/2023 Lab Requisition [facility] Laboratory Services [address] [place] [address] [place] [address] [place] [address] Social History Tobacco Use Types Packs/Day Years Used Date Smoking Tobacco: Never Assessed Sex and Gender Information Value Date Recorded Sex Assigned at Not on file Legal Sex Male 9:18 AM SENIOR TREASURY CONSULTANT Gender Identity Not on file Sexual Orientation Not on file documented as of this encounter Plan of Treatment Not on file documented as of this encounter Procedures Procedure Name Priority Date/Time Associated Diagnosis Comments CBC WITH DIFFERENTIAL Routine 10/10/2023 3:30 AM SENIOR TREASURY CONSULTANT PTT Routine 10/10/2023 3:30 AM SENIOR TREASURY CONSULTANT PROTIME-INR Routine 10/10/2023 3:30 AM SENIOR TREASURY CONSULTANT PREALBUMIN Routine 10/10/2023 3:30 AM SENIOR TREASURY CONSULTANT COMPREHENSIVE METABOLIC PANEL Routine 10/10/2023 3:30 AM SENIOR TREASURY CONSULTANT documented in this encounter Results * PTT (10/10/2023 3:30 AM SENIOR TREASURY CONSULTANT) PTT 23.4 23.1 - 37.1 seconds 10/10/2023 10:14 AM SENIOR TREASURY CONSULTANT [facility] LABORATORY SERVICES [facility] Blood Collection / Unknown 10/10/2023 3:30 AM SENIOR TREASURY CONSULTANT 10/10/2023 9:51 AM SENIOR TREASURY CONSULTANT Erik Chairez MD HEMATOLOGY ORDERABLES Final Resu lt [facility] CLIA# [id number] [place] [address] * (ABNORMAL) PROTIME-INR (10/10/2023 3:30 AM SENIOR TREASURY CONSULTANT) PROTIME 15.0(H) 11.5 - 14.7 Seconds 10/10/2023 10:14 AM SENIOR TREASURY CONSULTANT [facility] LABORATORY [facility] INR 1.2(H) 0.9 - 1.1 10/10/2023 10:14 AM SENIOR TREASURY CONSULTANT [facility] LABORATORY [facility] Blood Collection / Unknown 10/10/2023 3:30 AM SENIOR TREASURY CONSULTANT 10/10/2023 9:51 AM SENIOR TREASURY CONSULTANT Erik Chairez MD HEMATOLOGY ORDERABLES Final Resu lt [facility] [employer] [facility] CLIA# [id number] [address] [place] [address] * PREALBUMIN (10/10/2023 3:30 AM SENIOR TREASURY CONSULTANT) PREALBUMIN 23 20 - 40 mg/dL 10/10/2023 2:24 PM SENIOR TREASURY CONSULTANT [facility] LABORATORY [facility] Blood Collection / Unknown 10/10/2023 3:30 AM SENIOR TREASURY CONSULTANT 10/10/2023 9:51 AM SENIOR TREASURY CONSULTANT Erik Chairez MD CHEMISTRY ORDERABLES Final Resul t [facility] [employer] [facility] CLIA# [id number] [address] [place] [address] * (ABNORMAL) CBC WITH DIFFERENTIAL (10/10/2023 3:30 AM SENIOR TREASURY CONSULTANT) [facility] WBC 10.1 4.5 - 10.5 K/uL 10/10/2023 11:06 AM [facility] RBC 3.85(L) 4.50 - 5.40 M/uL 10/10/2023 11:06 AM [facility] HEMOGLOBIN 11.6(L) 13.6 - 16.5 g/dL 10/10/2023 11:06 AM [facility] [employer] [facility] HEMATOCRIT 36.6(L) 40.0 - 48.0 % 10/10/2023 11:06 AM [facility] [employer] [facility] MCV 95.2 82.0 - 99.0 fL 10/10/2023 11:06 AM [facility] [employer] [facility] MCH 30.1 27.8 - 34.5 pg 10/10/2023 11:06 AM [facility] [employer] [facility] MCHC 31.6(L) 32.5 - 35.5 g/dL 10/10/2023 11:06 AM [facility] [employer] [facility] RDW 19.2(H) 11.5 - 14.5 % 10/10/2023 11:06 AM [facility] [employer] [facility] PLATELETS 250 160 - 420 K/uL 10/10/2023 11:06 AM [facility] [employer] [facility] MPV 9.8 8.7 - 12.7 fL 10/10/2023 11:06 AM [facility] [employer] [facility] NEUTROPHILS 72 % 10/10/2023 11:06 AM [facility] [employer] [facility] LYMPHOCYTES 15 % 10/10/2023 11:06 AM SENIOR TREASURY CONSULTANT [facility] LABORATORY [facility] MONOCYTES 7 % 10/10/2023 11:06 AM SENIOR TREASURY CONSULTANT [facility] LABORATORY [facility] EOSINOPHILS 5 % 10/10/2023 11:06 AM SENIOR TREASURY CONSULTANT [facility] LABORATORY [facility] BASOPHILS 0 % 10/10/2023 11:06 AM [facility] LABORATORY [facility] NEUTROPHIL ABSOLUTE 7.20(H) 1.90 - 7.00 K/uL 10/10/2023 11:06 AM [facility] [employer] [facility] LYMPHOCYTE ABSOLUTE 1.50 0.70 - 4.50 K/uL 10/10/2023 11:06 AM SENIOR TREASURY CONSULTANT [facility] LABORATORY [facility] MONOCYTE ABSOLUTE 0.70 0.10 - 1.30 K/uL 10/10/2023 11:06 AM SENIOR TREASURY CONSULTANT [facility] LABORATORY [facility] EOSINOPHIL ABSOLUTE 0.50 0.00 - 0.70 K/uL 10/10/2023 11:06 AM SENIOR TREASURY CONSULTANT [facility] LABORATORY [facility] BASOPHILS ABSOLUTE 0.00 0.00 - 0.20 K/uL 10/10/2023 11:06 AM SENIOR TREASURY CONSULTANT [facility] [employer] [facility] Blood Collection / Unknown 10/10/2023 3:30 AM SENIOR TREASURY CONSULTANT 10/10/2023 9:51 AM SENIOR TREASURY CONSULTANT us Erik Chairez MD HEMATOLOGY ORDERABLES Final Resu lt [facility] CLIA# [id number] [place] [address] * (ABNORMAL) COMPREHENSIVE METABOLIC PANEL (10/10/2023 3:30 AM SENIOR TREASURY CONSULTANT) SODIUM 142 136 - 145 mmol/L 10/10/2023 10:49 AM [facility] [employer] [facility] POTASSIUM 4.1 3.4 - 5.1 mmol/L 10/10/2023 10:49 AM [facility] [employer] [facility] CHLORIDE 104 98 - 107 mmol/L 10/10/2023 10:49 AM [facility] [employer] [facility] CO2 23 22 - 29 mmol/L 10/10/2023 10:49 AM [facility] [employer] [facility] CALCIUM 9.4 8.6 - 10.4 mg/dL 10/10/2023 10:49 AM [facility] [employer] [facility] BUN 34(H) 6 - 20 mg/dL 10/10/2023 10:49 AM [facility] [employer] [facility] CREATININE 1.24(H) 0.67 - 1.17 mg/dL 10/10/2023 10:49 AM [facility] LABORATORY [facility] Comment:The GFR result is no t [...] Blood Collection / Unknown 10/10/2023 3:30 AM SENIOR TREASURY CONSULTANT 10/10/2023 9:51 AM SENIOR TREASURY CONSULTANT us Erik Chairez MD CHEMISTRY ORDERABLES Final Resul t [facility] CLIA# [id number] [address] [place] [address] documented in this encounter Visit Diagnoses Not on filedocumented in this encounter Additional Health Concerns Infection Onset Date Last Indicated Resolved Time 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
--- OUTSIDE RECORDS SUMMARY | 2025-03-04 13:50 | XMS_ITS | Encounter Summary ---
Author Organization [facility] Address [address] [place] [address] Care Team Providers Care Structural Design Engineer Name Role Phone Unavailable Primary Care Provider Unavailabl e Encounter Details Date Type Department Care Team (Late st Contact Info) Description 11/05/2023 Lab Requisition [facility] [address] [place] [address] [place] [address] [place] [address] Social History Tobacco Use Types Packs/Day Years Used Date Smoking Tobacco: Never Assessed Sex and Gender Information Value Date Recorded Sex Assigned at Not on file Legal Sex Male 9:18 AM INTERVENTION NURSE Gender Identity Not on file Sexual Orientation Not on file documented as of this encounter Plan of Treatment Not on file documented as of this encounter Procedures Procedure Name Priority Date/Time Associated Diagnosis Comments DIFFERENTIAL, MANUAL Routine 11/05/2023 3:30 AM INTERVENTION NURSE CBC WITH DIFFERENTIAL Routine 11/05/2023 3:30 AM INTERVENTION NURSE documented in this encounter Results * MANUAL DIFFERENTIAL (11/05/2023 3:30 AM INTERVENTION NURSE) PLATELET EST. Consistent w Count 11/05/2023 6:05 AM INTERVENTION NURSE [facility] RBC MORPHOLOGY Normal 11/05/2023 6:05 AM INTERVENTION NURSE [facility] Blood Collection / Unknown 11/05/2023 3:30 AM INTERVENTION NURSE 11/05/2023 5:05 AM INTERVENTION NURSE Erik Chairez MD HEMATOLOGY ORDERABLES COM Final Result [facility] CLIA# [id number] [address] [place] [address] * (ABNORMAL) CBC WITH DIFFERENTIAL (11/05/2023 3:30 AM INTERVENTION NURSE) [facility] WBC 7.5 4.5 - 10.5 K/uL 11/05/2023 6:05 AM [facility] LABORATORY [facility] RBC 3.81(L) 4.50 - 5.40 M/uL 11/05/2023 6:05 AM [facility] HEMOGLOBIN 11.9(L) 13.6 - 16.5 g/dL 11/05/2023 6:05 AM [facility] HEMATOCRIT 35.6(L) 40.0 - 48.0 % 11/05/2023 6:05 AM [facility] MCV 93.5 82.0 - 99.0 fL 11/05/2023 6:05 AM [facility] MCH 31.2 27.8 - 34.5 pg 11/05/2023 6:05 AM [facility] MCHC 33.3 32.5 - 35.5 g/dL 11/05/2023 6:05 AM [facility] RDW 17.0(H) 11.5 - 14.5 % 11/05/2023 6:05 AM [facility] PLATELETS 243 160 - 420 K/uL 11/05/2023 6:05 AM [facility] MPV 9.4 8.7 - 12.7 fL 11/05/2023 6:05 AM [facility] LABORAT[facility] NEUTROPHILS 63 % 11/05/2023 6:05 AM INTERVENTION NURSE [facility] LYMPHOCYTES 23 % 11/05/2023 6:05 AM INTERVENTION NURSE [facility] LABORATORY [facility] MONOCYTES 5 % 11/05/2023 6:05 AM [facility] LABOR[facility] EOSINOPHILS 9 % 11/05/2023 6:05 AM INTERVENTION NURSE [facility] LABORATORY [facility] BASOPHILS 1 % 11/05/2023 6:05 AM INTERVENTION NURSE [facility] LABORATORY [facility] NEUTROPHIL ABSOLUTE 4.70 1.90 - 7.00 K/uL 11/05/2023 6:05 AM INTERVENTION NURSE [facility] LABORATORY [facility] LYMPHOCYTE ABSOLUTE 1.70 0.70 - 4.50 K/uL 11/05/2023 6:05 AM INTERVENTION NURSE [facility] LABORATORY [facility] MONOCYTE ABSOLUTE 0.40 0.10 - 1.30 K/uL 11/05/2023 6:05 AM INTERVENTION NURSE [facility] LABORATORY [facility] EOSINOPHIL ABSOLUTE 0.70 0.00 - 0.70 K/uL 11/05/2023 6:05 AM INTERVENTION NURSE [facility] BASOPHILS ABSOLUTE 0.00 0.00 - 0.20 K/uL 11/05/2023 6:05 AM INTERVENTION NURSE [facility] LABORATORY [facility] Blood Collection / Unknown 11/05/2023 3:30 AM INTERVENTION NURSE 11/05/2023 5:05 AM INTERVENTION NURSE Erik Chairez MD HEMATOLOGY ORDERABLES Final Resu lt [facility] CLIA# [id number] [address] [place] [address] documented in this encounter Visit Diagnoses Not on filedocumented in this encounter Additional Health Concerns Infection Onset Date Last Indicated Resolved Time 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
--- OUTSIDE RECORDS SUMMARY | 2025-03-04 13:50 | XMS_ITS | Encounter Summary ---
Author Organization [facility] Address [address] [place] [address] Care Team Providers Care Reconstructive Surgeon Name Role Phone Unavailable Primary Care Provider Unavailabl e Encounter Details Date Type Department Care Team (Late st Contact Info) Description 10/12/2023 Lab Requisition [facility] Laboratory Services [address] [place] [address] [place] [address] [place] [address] Social History Tobacco Use Types Packs/Day Years Used Date Smoking Tobacco: Never Assessed Sex and Gender Information Value Date Recorded Sex Assigned at Not on file Legal Sex Male 9:18 AM FIRE EATER Gender Identity Not on file Sexual Orientation Not on file documented as of this encounter Plan of Treatment Not on file documented as of this encounter Procedures Procedure Name Priority Date/Time Associated Diagnosis Comments MAGNESIUM LEVEL Routine 10/12/2023 4:00 AM FIRE EATER RENAL FUNCTION PANEL Routine 10/12/2023 4:00 AM FIRE EATER documented in this encounter Results * MAGNESIUM LEVEL (10/12/2023 4:00 AM FIRE EATER) MAGNESIUM 2.3 1.6 - 2.6 mg/dL 10/12/2023 6:02 AM FIRE EATER [facility] [employer] [facility] Blood Collection / Unknown 10/12/2023 4:00 AM FIRE EATER 10/12/2023 5:07 AM FIRE EATER us Erik Chairez MD CHEMISTRY ORDERABLES Final Resul t [facility] [id number] [address] [place] [address] * (ABNORMAL) RENAL FUNCTION PANEL (10/12/2023 4:00 AM FIRE EATER) SODIUM 139 136 - 145 mmol/L 10/12/2023 6:02 AM [facility] POTASSIUM 4.2 3.4 - 5.1 mmol/L 10/12/2023 6:02 AM [facility] CHLORIDE 102 98 - 107 mmol/L 10/12/2023 6:02 AM [facility] CO2 24 22 - 29 mmol/L 10/12/2023 6:02 AM [facility] CALCIUM 9.5 8.6 - 10.4 mg/dL 10/12/2023 6:02 AM [facility] BUN 43(H) 6 - 20 mg/dL 10/12/2023 6:02 AM [facility] CREATININE 1.20(H) 0.67 - 1.17 mg/dL 10/12/2023 6:02 AM [facility] Comment:The GFR result is no t clinically significant on patients <18 or >70 years of age. GLUCOSE 94 74 - 99 mg/dL 10/12/2023 6:02 AM [facility] ALBUMIN 3.4(L) 3.5 - 5.2 g/dL 10/12/2023 6:02 AM [facility] PHOSPHORUS 4.2 2.5 - 4.5 mg/dL 10/12/2023 6:02 AM [facility] GFR 60 mL/min/1.7 3 sq meter 10/12/2023 6:02 AM [facility] Comment:eGFR calculated with 2020 CKD-EPI equation. Vegetarian diet, extremely high or low muscle mass, and may affect results. Cystatin C with Glomerular Filtration Rate is a suitable alternative for these patients. 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
--- OUTSIDE RECORDS SUMMARY | 2025-03-04 13:50 | XMS_ITS | Encounter Summary ---
Author Organization [facility] Address [address] [place] [address] Care Team Providers Care Medical Education Specialist Name Role Phone Unavailable Primary Care Provider Unavailabl e Encounter Details Date Type Department Care Team (Late st Contact Info) Description 10/20/2023 Lab Requisition [facility] [address] [place] [address] [place] [address] [place] [address] Social History Tobacco Use Types Packs/Day Years Used Date Smoking Tobacco: Never Assessed Sex and Gender Information Value Date Recorded Sex Assigned at Not on file Legal Sex Male 9:18 AM REVENUE AUDIT CLERK Gender Identity Not on file Sexual Orientation Not on file documented as of this encounter Plan of Treatment Not on file documented as of this encounter Procedures Procedure Name Priority Date/Time Associated Diagnosis Comments CBC WITH DIFFERENTIAL Routine 10/20/2023 2:20 AM REVENUE AUDIT CLERK BASIC METABOLIC PANEL Routine 10/20/2023 2:20 AM REVENUE AUDIT CLERK documented in this encounter Results * (ABNORMAL) CBC WITH DIFFERENTIAL (10/20/2023 2:20 AM REVENUE AUDIT CLERK) WBC 8.3 4.5 - 10.5 K/uL 10/20/2023 5:25 AM REVENUE AUDIT CLERK [facility]AT[facility] SERVICES - [facility] RBC 3.82(L) 4.50 - 5.40 M/uL 10/20/2023 5:25 AM REVENUE AUDIT CLERK [facility] HEMOGLOBIN 11.2(L) 13.6 - 16.5 g/dL 10/20/2023 5:25 AM REVENUE AUDIT CLERK [facility]ORY SERVICES - [facility] HEMATOCRIT 35.0(L) 40.0 - 48.0 % 10/20/2023 5:25 AM REVENUE AUDIT CLERK [facility] LABORATORY SERVICES [facility] MCV 91.6 82.0 - 99.0 fL 10/20/2023 5:25 AM REVENUE AUDIT CLERK [facility] SERVICES - [facility] MCH 29.4 27.8 - 34.5 pg 10/20/2023 5:25 AM REVENUE AUDIT CLERK [facility] LABORATORY SERVICES [facility] MCHC 32.1(L) 32.5 - 35.5 g/dL 10/20/2023 5:25 AM REVENUE AUDIT CLERK [facility]ATORY SERVICES - [facility] RDW 17.4(H) 11.5 - 14.5 % 10/20/2023 5:25 AM REVENUE AUDIT CLERK [facility] - [facility] PLATELETS 255 160 - 420 K/uL 10/20/2023 5:25 AM REVENUE AUDIT CLERK [facility] MPV 9.4 8.7 - 12.7 fL 10/20/2023 5:25 AM REVENUE AUDIT CLERK [facility] - [facility] NEUTROPHILS 60 % 10/20/2023 5:25 AM REVENUE AUDIT CLERK [facility] SERVICES - [facility] LYMPHOCYTES 23 % 10/20/2023 5:25 AM REVENUE AUDIT CLERK [employer] LABORATORY SERVICES [facility] MONOCYTES 6 % 10/20/2023 5:25 AM REVENUE AUDIT CLERK [facility] LABOR[facility]ORY SERVICES [facility] EOSINOPHILS 11 % 10/20/2023 5:25 AM REVENUE AUDIT CLERK [facility] BASOPHILS 1 % 10/20/2023 5:25 AM REVENUE AUDIT CLERK [facility] NEUTROPHIL ABSOLUTE 4.90 1.90 - 7.00 K/uL 10/20/2023 5:25 AM REVENUE AUDIT CLERK [facility] LABORATORY SERVICES [facility] LYMPHOCYTE ABSOLUTE 1.90 0.70 - 4.50 K/uL 10/20/2023 5:25 AM REVENUE AUDIT CLERK [employer] LABORATORY SERVICES [facility] MONOCYTE ABSOLUTE 0.50 0.10 - 1.30 K/uL 10/20/2023 5:25 AM REVENUE AUDIT CLERK [facility] LAB[facility]AT[facility] SERVICES [facility] EOSINOPHIL ABSOLUTE 0.90(H) 0.00 - 0.70 K/uL 10/20/2023 5:25 AM REVENUE AUDIT CLERK [facility] LAB[facility]ATORY SERVICES [facility] BASOPHILS ABSOLUTE 0.00 0.00 - 0.20 K/uL 10/20/2023 5:25 AM [facility] Blood 10/20/2023 2:20 AM REVENUE AUDIT CLERK 10/20/2023 5:15 AM REVENUE AUDIT CLERK Erik Chairez MD HEMATOLOGY ORDERABLES Final Resu lt [facility] CLIA# [id number] [address] [place] [address] * (ABNORMAL) BASIC METABOLIC PANEL (10/20/2023 2:20 AM REVENUE AUDIT CLERK) SODIUM 140 136 - 145 mmol/L 10/20/2023 5:53 AM [facility] POTASSIUM 3.8 3.4 - 5.1 mmol/L 10/20/2023 5:53 AM [facility] CHLORIDE 101 98 - 107 mmol/L 10/20/2023 5:53 AM [facility] CO2 26 22 - 29 mmol/L 10/20/2023 5:53 AM [facility] CALCIUM 9.6 8.6 - 10.4 mg/dL 10/20/2023 5:53 AM [facility] BUN 30(H) 6 - 20 mg/dL 10/20/2023 5:53 AM [facility] CREATININE 0.89 0.67 - 1.17 mg/dL 10/20/2023 5:53 AM [facility] Comment:The GFR result is no t clinically significant on patients <18 or >70 years of age. GLUCOSE 110(H) 74 - 99 mg/dL 10/20/2023 5:53 AM [facility] GFR >60 mL/min/1.7 3 sq meter 10/20/2023 5:53 AM [facility] Comment:eGFR calculated with 2020 CKD-EPI equation. Vegetarian diet, extremely high or low muscle mass, and may affect results. Cystatin C with Glomerular Filtration Rate is a suitable alternative for these patients. 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
--- OUTSIDE RECORDS SUMMARY | 2025-03-04 13:50 | XMS_ITS | Clinical Summary ---
Author Organization [facility] Address [address] [place] [address] Care Team Providers Care Taste Tester Name Role Phone Demond Stark MD Primary Care Provider [phone] Encounters Date Type Department Care Team Description 03/02/2025 Orders Only [facility] Alan. 2 [facility] [address] [place] [address] Rula Caballero MA Renal insufficiency (Primary Dx); Hypertension; Other proteinuria 03/02/2025 Orders Only [facility] Alan. 2 [facility] [address] [place] [address] Rula Caballero MA Renal insufficiency (Primary Dx); Proteinuria, not otherwise specified; Anemia, not otherwise specified from Last 3 Months Social History Tobacco Use Types Packs/Day Years Used Date Smoking Tobacco: Never Assessed Sex and Gender Information Value Date Recorded Sex Assigned at Not on file Legal Sex Male 1:20 PM EDT Gender Identity Not on file Sexual Orientation Not on file Plan of Treatment Health Maintenance Due Date Last Done Comments Pneumococcal Vaccine: 50+ Ye ars (1 of 2 - PCV) 02/21/1959 Hepatitis B Vaccine (1 of 3 - Risk 3-dose series) 2000 Diabetes: Hemoglobin A1C 11/02/2024 Diabetes: Ophthalmology Exam 11/02/2024 Diabetes: Pedal Pulse Checked 11/02/2024 Diabetes: Sensory Foot Exam 11/02/2024 Diabetes: Visual Foot Exam 11/02/2024 Influenza Vaccine (Season Ended) 2025 07/24/20 10, 07/24/2010 Care Teams Taste Tester Relationship Specialty Start Date End Date Demond Stark MD [address] [address] PCP - General Family Medicine 06/04/24
--- OUTSIDE RECORDS SUMMARY | 2025-03-04 13:50 | XMS_ITS | Encounter Summary ---
Author Organization [facility] Address [address] [place] [address] Care Team Providers Care Senior Bi Developer Name Role Phone Unavailable Primary Care Provider Unavailabl e Encounter Details Date Type Department Care Team (Late st Contact Info) Description 10/13/2023 Lab Requisition [facility] Laboratory Services [address] [place] [address] [place] [address] [place] [address] Social History Tobacco Use Types Packs/Day Years Used Date Smoking Tobacco: Never Assessed Sex and Gender Information Value Date Recorded Sex Assigned at Not on file Legal Sex Male 9:18 AM MECHANICAL ENGINEERING TECHNOLOGIST Gender Identity Not on file Sexual Orientation Not on file documented as of this encounter Plan of Treatment Not on file documented as of this encounter Procedures Procedure Name Priority Date/Time Associated Diagnosis Comments MAGNESIUM LEVEL Routine 10/13/2023 4:00 AM MECHANICAL ENGINEERING TECHNOLOGIST RENAL FUNCTION PANEL Routine 10/13/2023 4:00 AM MECHANICAL ENGINEERING TECHNOLOGIST documented in this encounter Results * MAGNESIUM LEVEL (10/13/2023 4:00 AM MECHANICAL ENGINEERING TECHNOLOGIST) MAGNESIUM 2.3 1.6 - 2.6 mg/dL 10/13/2023 5:59 AM MECHANICAL ENGINEERING TECHNOLOGIST [facility] [employer] [facility] Blood Collection / Unknown 10/13/2023 4:00 AM MECHANICAL ENGINEERING TECHNOLOGIST 10/13/2023 5:20 AM MECHANICAL ENGINEERING TECHNOLOGIST us Erik Chairez MD CHEMISTRY ORDERABLES Final [facility] [id number] [address] [place] [address] * (ABNORMAL) RENAL FUNCTION PANEL (10/13/2023 4:00 AM MECHANICAL ENGINEERING TECHNOLOGIST) SODIUM 138 136 - 145 mmol/L 10/13/2023 5:58 AM [facility] POTASSIUM 4.5 3.4 - 5.1 mmol/L 10/13/2023 5:58 AM [facility] CHLORIDE 100 98 - 107 mmol/L 10/13/2023 5:58 AM [facility] CO2 25 22 - 29 mmol/L 10/13/2023 5:58 AM [facility] CALCIUM 9.6 8.6 - 10.4 mg/dL 10/13/2023 5:58 AM [facility] BUN 39(H) 6 - 20 mg/dL 10/13/2023 5:58 AM [facility] CREATININE 1.09 0.67 - 1.17 mg/dL 10/13/2023 5:58 AM [facility] Comment:The GFR result is no t clinically significant on patients <18 or >70 years of age. GLUCOSE 100(H) 74 - 99 mg/dL 10/13/2023 5:58 AM [facility] ALBUMIN 3.5 3.5 - 5.2 g/dL 10/13/2023 5:58 AM [facility] PHOSPHORUS 4.8(H) 2.5 - 4.5 mg/dL 10/13/2023 5:58 AM [facility] GFR >60 mL/min/1.7 3 sq meter 10/13/2023 5:58 AM [facility] Comment:eGFR calculated with 2020 CKD-EPI equation. Vegetarian diet, extremely high or low muscle mass, and may affect results. Cystatin C with Glomerular Filtration Rate is a suitable alternative for these patients. 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
--- OUTSIDE RECORDS SUMMARY | 2025-03-04 13:50 | XMS_ITS | Encounter Summary ---
Author Organization Offees [facility] Address [address] [place] [address] Care Team Providers Care Cash On Delivery Clerk Name Role Phone Unavailable Primary Care Provider Unavailabl e Encounter Details Date Type Department Care Team (Late st Contact Info) Description 10/11/2023 Lab Requisition [facility] Laboratory Services [address] [place] [address] [place] [address] [place] [address] Social History Tobacco Use Types Packs/Day Years Used Date Smoking Tobacco: Never Assessed Sex and Gender Information Value Date Recorded Sex Assigned at Not on file Legal Sex Male 9:18 AM BOOM STICK MAN Gender Identity Not on file Sexual Orientation Not on file documented as of this encounter Plan of Treatment Not on file documented as of this encounter Procedures Procedure Name Priority Date/Time Associated Diagnosis Comments CBC WITH DIFFERENTIAL Routine 10/11/2023 3:30 AM BOOM STICK MAN TRIGLYCERIDE Routine 10/11/2023 3:30 AM BOOM STICK MAN MAGNESIUM LEVEL Routine 10/11/2023 3:30 AM BOOM STICK MAN RENAL FUNCTION PANEL Routine 10/11/2023 3:30 AM BOOM STICK MAN documented in this encounter Results * (ABNORMAL) TRIGLYCERIDE (10/11/2023 3:30 AM BOOM STICK MAN) TRIGLYCERIDE 192(H) <150 mg/dL 10/11/2023 6:28 AM BOOM STICK MAN [facility] LABORATORY SERVICES [facility] Blood 10/11/2023 3:30 AM BOOM STICK MAN 10/11/2023 5:43 AM BOOM STICK MAN Narrative [facility] Upp[facility] - 10/11/2023 6:28 AM BOOM STICK MAN TRIGLYCERIDES mg/dL Normal < 150 Borderline High 150 - 199 High 200 - 499 Very High >= 500 Based on AHA/NCEP Guidelines. Erik Chairez MD CHEMISTRY ORDERABLES Final Resul t Performing Organization Address City/[facility]/ZIP Co de Phone Number [facility] CLIA# [id number] [place] [address] * MAGNESIUM LEVEL (10/11/2023 3:30 AM BOOM STICK MAN) MAGNESIUM 2.2 1.6 - 2.6 mg/dL 10/11/2023 6:28 AM [facility] [place] Blood 10/11/2023 3:30 AM BOOM STICK MAN 10/11/2023 5:43 AM BOOM STICK MAN Erik Chairez MD CHEMISTRY ORDERABLES Final Resul t Performing Organization Address City/[facility]/ZIP Co de Phone Number [facility] CLIA# [id number] [place] [address] * (ABNORMAL) CBC WITH DIFFERENTIAL (10/11/2023 3:30 AM BOOM STICK MAN) WBC 8.8 4.5 - 10.5 K/uL 10/11/2023 6:05 AM [facility] U[employer]idy [facility] RBC 3.43(L) 4.50 - 5.40 M/uL 10/11/2023 6:05 AM [facility] HEMOGLOBIN 10.5(L) 13.6 - 16.5 g/dL 10/11/2023 6:05 AM [facility] [place] [place] HEMATOCRIT 32.7(L) 40.0 - 48.0 % 10/11/2023 6:05 AM [facility] [place] [place] MCV 95.4 82.0 - 99.0 fL 10/11/2023 6:05 AM [facility] [place] [place] MCH 30.7 27.8 - 34.5 pg 10/11/2023 6:05 AM [facility] LABORATORY [facility] MCHC 32.2(L) 32.5 - 35.5 g/dL 10/11/2023 6:05 AM [facility] LABORATORY [facility] RDW 18.7(H) 11.5 - 14.5 % 10/11/2023 6:05 AM [facility] LABORATORY [facility] PLATELETS 218 160 - 420 K/uL 10/11/2023 6:05 AM [facility] LABORATORY [facility] MPV 9.3 8.7 - 12.7 fL 10/11/2023 6:05 AM BOOM STICK MAN [facility]ORY SERVICES [facility] NEUTROPHILS 67 % 10/11/2023 6:05 AM BOOM STICK MAN [facility]ORY SERVICES [facility] LYMPHOCYTES 18 % 10/11/2023 6:05 AM BOOM STICK MAN [facility] LABORATORY SERVICES [facility] MONOCYTES 7 % 10/11/2023 6:05 AM BOOM STICK MAN [facility] EOSINOPHILS 7 % 10/11/2023 6:05 AM [facility] LABOR[facility] BASOPHILS 1 % 10/11/2023 6:05 AM BOOM STICK MAN [facility] LAB[facility] NEUTROPHIL ABSOLUTE 5.90 1.90 - 7.00 K/uL 10/11/2023 6:05 AM [facility] LABORATORY [facility] LYMPHOCYTE ABSOLUTE 1.60 0.70 - 4.50 K/uL 10/11/2023 6:05 AM [facility] LABORATORY [facility] MONOCYTE ABSOLUTE 0.60 0.10 - 1.30 K/uL 10/11/2023 6:05 AM [facility] LABORATORY [facility] EOSINOPHIL ABSOLUTE 0.60 0.00 - 0.70 K/uL 10/11/2023 6:05 AM BOOM STICK MAN [facility] LAB[facility] BASOPHILS ABSOLUTE 0.10 0.00 - 0.20 K/uL 10/11/2023 6:05 AM [facility] LABORATORY [facility] Blood 10/11/2023 3:30 AM BOOM STICK MAN 10/11/2023 5:43 AM BOOM STICK MAN us Erik Chairez MD HEMATOLOGY ORDERABLES Final Resu lt [facility] CLIA# [id number] [address] [place] [address] * (ABNORMAL) RENAL FUNCTION PANEL (10/11/2023 3:30 AM BOOM STICK MAN) SODIUM 145 136 - 145 mmol/L 10/11/2023 6:28 AM [facility] POTASSIUM 4.0 3.4 - 5.1 mmol/L 10/11/2023 6:28 AM [facility] [place] [place] CHLORIDE 106 98 - 107 mmol/L 10/11/2023 6:28 AM [facility] CO2 26 22 - 29 mmol/L 10/11/2023 6:28 AM [facility] [place] [place] CALCIUM 9.3 8.6 - 10.4 mg/dL 10/11/2023 6:28 AM [facility] [place] [place] BUN 38(H) 6 - 20 mg/dL 10/11/2023 6:28 AM [facility] [place] [place] CREATININE 1.38(H) 0.67 - 1.17 mg/dL 10/11/2023 6:28 AM [facility] [place] [place] Comment:The GFR result is no t clinically significant on patients <18 or >70 years of age. GLUCOSE 85 74 - 99 mg/dL 10/11/2023 6:28 AM [facility] [place] [place] ALBUMIN 3.4(L) 3.5 - 5.2 g/dL 10/11/2023 6:28 AM [facility] [place] [place] PHOSPHORUS 3.9 2.5 - 4.5 mg/dL 10/11/2023 6:28 AM [facility] [place] [place] GFR 51 mL/min/1.7 3 sq meter 10/11/2023 6:28 AM [facility] [place] [place] Comment:eGFR calculated with 2020 CKD-EPI equation. Vegetarian diet, extremely high or low muscle mass, and may affect results. Cystatin C with Glomerular Filtration Rate is a suitable alternative for these patients. 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
--- OUTSIDE RECORDS SUMMARY | 2025-03-04 13:50 | XMS_ITS | Continuity of Care Document ---
Author Organization [facility] Address [address] [place] [address] [place] [address] Phone Care Team Providers Care Segment Block Layer Name Role Phone Karsten Mason MD Unavailable Unavailable Procedures Procedure Date Office/outpatient Visit, [facility] Advance Directives Directive Yes / No Effective Date File Name No Information Encounters Encounter Description Practice Location Reason(s) For Visit Diagnoses Date Provider Providers Copied on Encounter Office/outpat ient Visit, [facility], [id number] [place] [address] [address], [place], [place], [id number], [place] tel:[phone] [facility] No Information [phone] [facility] [address], [place], [place], [address], [place]. tel:[phone] Family History Family Member Type Diagnosis Age At Onset No Information Payers Payer name Insurance type Covered democrat ID Authoriza tion(s) Medicare [facility] [id number] Social History Type Description Quantity Date Captured [...]
--- OUTSIDE RECORDS SUMMARY | 2025-03-04 13:50 | XMS_ITS | Encounter Summary ---
Author Organization [facility] Address [address] [place] [address] Care Team Providers Care Cellular Equipment Installer Name Role Phone Unavailable Primary Care Provider Unavailabl e Encounter Details Date Type Department Care Team (Late st Contact Info) Description 11/01/2023 Lab Requisition [facility] Laboratory Services [address] [place] [address] [place] [address] [place] [address] Social History Tobacco Use Types Packs/Day Years Used Date Smoking Tobacco: Never Assessed Sex and Gender Information Value Date Recorded Sex Assigned at Not on file Legal Sex Male 9:18 AM MANAGER SAP Gender Identity Not on file Sexual Orientation Not on file documented as of this encounter Plan of Treatment Not on file documented as of this encounter Procedures Procedure Name Priority Date/Time Associated Diagnosis Comments CBC WITH DIFFERENTIAL Routine 11/01/2023 4:20 AM MANAGER SAP BASIC METABOLIC PANEL Routine 11/01/2023 4:20 AM MANAGER SAP documented in this encounter Results * (ABNORMAL) CBC WITH DIFFERENTIAL (11/01/2023 4:20 AM MANAGER SAP) WBC 8.5 4.5 - 10.5 K/uL 11/01/2023 8:48 AM MANAGER SAP [facility] SERVICES - [facility] RBC 3.87(L) 4.50 - 5.40 M/uL 11/01/2023 8:48 AM MANAGER SAP [facility] LABOR[facility] HEMOGLOBIN 11.2(L) 13.6 - 16.5 g/dL 11/01/2023 8:48 AM MANAGER SAP [facility] HEMATOCRIT 34.9(L) 40.0 - 48.0 % 11/01/2023 8:48 AM MANAGER SAP [facility] LABORATORY SERVICES [facility] MCV 90.3 82.0 - 99.0 fL 11/01/2023 8:48 AM MANAGER SAP [facility] SERVICES - [facility] MCH 29.0 27.8 - 34.5 pg 11/01/2023 8:48 AM MANAGER SAP [facility] LABORATORY SERVICES [facility] MCHC 32.1(L) 32.5 - 35.5 g/dL 11/01/2023 8:48 AM MANAGER SAP [facility]OR[facility]ORY SERVICES [facility] RDW 17.0(H) 11.5 - 14.5 % 11/01/2023 8:48 AM MANAGER SAP [facility]ORATORY SERVICES [facility] PLATELETS 246 160 - 420 K/uL 11/01/2023 8:48 AM MANAGER SAP [facility] MPV 9.7 8.7 - 12.7 fL 11/01/2023 8:48 AM MANAGER SAP [facility] NEUTROPHILS 53 % 11/01/2023 8:48 AM MANAGER SAP [facility] LYMPHOCYTES 29 % 11/01/2023 8:48 AM MANAGER SAP [facility] MONOCYTES 7 % 11/01/2023 8:48 AM MANAGER SAP [facility] EOSINOPHILS 12 % 11/01/2023 8:48 AM MANAGER SAP [facility] [employer] [facility] BASOPHILS 1 % 11/01/2023 8:48 AM MANAGER SAP [facility] LABORATORY SERVICES [facility] NEUTROPHIL ABSOLUTE 4.50 1.90 - 7.00 K/uL 11/01/2023 8:48 AM MANAGER SAP [facility] LABORATORY SERVICES [facility] LYMPHOCYTE ABSOLUTE 2.40 0.70 - 4.50 K/uL 11/01/2023 8:48 AM MANAGER SAP [facility] MONOCYTE ABSOLUTE 0.60 0.10 - 1.30 K/uL 11/01/2023 8:48 AM MANAGER SAP [facility] LABORATORY SERVICES [facility] EOSINOPHIL ABSOLUTE 1.00(H) 0.00 - 0.70 K/uL 11/01/2023 8:48 AM MANAGER SAP [facility] LABORATORY SERVICES [facility] BASOPHILS ABSOLUTE 0.00 0.00 - 0.20 K/uL 11/01/2023 8:48 AM [facility] Blood Collection / Unknown 11/01/2023 4:20 AM MANAGER SAP 11/01/2023 7:57 AM MANAGER SAP Erik Chairez MD HEMATOLOGY ORDERABLES Final Resu lt [facility] [[email or web address] CLIA# [id number] [address] [place] [address] * (ABNORMAL) BASIC METABOLIC PANEL (11/01/2023 4:20 AM MANAGER SAP) SODIUM 139 136 - 145 mmol/L 11/01/2023 [...] 8 - 16 mmol/L 11/01/2023 9:12 AM MANAGER SAP [facility]ORATORY SERVICES [facility] Blood Collection / Unknown 11/01/2023 4:20 AM MANAGER SAP 11/01/2023 7:57 AM MANAGER SAP Erik Chairez MD CHEMISTRY ORDERABLES Final Resul t [facility] SERVICES [facility] CLIA# [id number] [address] [place] [address] documented in this encounter Visit Diagnoses Not on filedocumented in this encounter Additional Health Concerns Infection Onset Date Last Indicated Resolved Time 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
--- OUTSIDE RECORDS SUMMARY | 2025-03-04 13:50 | XMS_ITS | Encounter Summary ---
Author Organization [facility] Address [address] [place] [address] Care Team Providers Care Cement Based Materials Pump Tender Name Role Phone Unavailable Primary Care Provider Unavailabl e Encounter Details Date Type Department Care Team (Late st Contact Info) Description 11/07/2023 Lab Requisition [facility] Laboratory Services [address] [place] [address] [place] [address] [place] [address] Social History Tobacco Use Types Packs/Day Years Used Date Smoking Tobacco: Never Assessed Sex and Gender Information Value Date Recorded Sex Assigned at Not on file Legal Sex Male 9:18 AM FLIGHT OPERATIONS MANAGER Gender Identity Not on file Sexual Orientation Not on file documented as of this encounter Plan of Treatment Not on file documented as of this encounter Procedures Procedure Name Priority Date/Time Associated Diagnosis Comments THEOPHYLLINE LEVEL Routine 11/07/2023 8: 40 AM FLIGHT OPERATIONS MANAGER documented in this encounter Results * (ABNORMAL) THEOPHYLLINE LEVEL (11/07/2023 8:40 AM FLIGHT OPERATIONS MANAGER) THEOPHYLLINE LEVEL <0.8(L) 10.0 - 20.0 ug/mL 11/07/2023 3:56 PM FLIGHT OPERATIONS MANAGER [facility] LABORATORY SERVICES [facility] Comment:Verified by repeat a nalysis. TDM LAST DATE, TIME, AMT (TIFFANIE) Patient unable to state date. time or dose. 11/07/2023 3:56 PM FLIGHT OPERATIONS MANAGER [facility] LABORATORY SERVICES [facility] LAST DOSE AMT, THEOPHYLLINE Other 11/07/2023 3:56 PM FLIGHT OPERATIONS MANAGER [facility] LABORATORY SERVICES [facility] Comment:80 mg Blood 11/07/2023 8:40 AM FLIGHT OPERATIONS MANAGER 11/07/2023 10:34 AM FLIGHT OPERATIONS MANAGER Narrative [facility] LAB[facility] - 11/07/2023 3:56 PM FLIGHT OPERATIONS MANAGER Theophylline Toxic Levels: 6 months - Adult = >20.0 ug/mL 0 - 6 months = >15.0 ug/mL Erik Chairez MD CHEMISTRY ORDERABLES Final Resul t [facility] CLIA# [id number] [address] [place] [address] [facility] LAB[facility] CLIA# [id number] [address] [place] [address] documented in this encounter Visit Diagnoses Not on filedocumented in this encounter Additional Health Concerns Infection Onset Date Last Indicated Resolved Time CRE-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
--- OUTSIDE RECORDS SUMMARY | 2025-03-04 13:50 | XMS_ITS | Encounter Summary ---
Author Organization [facility] Address [address] [place] [address] Care Team Providers Care Project Associate Name Role Phone Unavailable Primary Care Provider Unavailabl e Encounter Details Date Type Department Care Team (Late st Contact Info) Description 10/23/2023 Lab Requisition [facility] Laboratory Services [address] [place] [address] [place] [address] [place] [address] Social History Tobacco Use Types Packs/Day Years Used Date Smoking Tobacco: Never Assessed Sex and Gender Information Value Date Recorded Sex Assigned at Not on file Legal Sex Male 9:18 AM BOUNTY HUNTER Gender Identity Not on file Sexual Orientation Not on file documented as of this encounter Plan of Treatment Not on file documented as of this encounter Procedures Procedure Name Priority Date/Time Associated Diagnosis Comments CBC WITH DIFFERENTIAL Routine 10/23/2023 2:45 AM BOUNTY HUNTER BASIC METABOLIC PANEL Routine 10/23/2023 2:45 AM BOUNTY HUNTER documented in this encounter Results * (ABNORMAL) CBC WITH DIFFERENTIAL (10/23/2023 2:45 AM BOUNTY HUNTER) WBC 12.7(H) 4.5 - 10.5 K/uL 10/23/2023 11:15 AM BOUNTY HUNTER [facility] LABORATORY SERVICES - [facility] RBC 4.12(L) 4.50 - 5.40 M/uL 10/23/2023 11:15 AM BOUNTY HUNTER [facility] LABORATORY [facility] - [facility] HEMOGLOBIN 12.2(L) 13.6 - 16.5 g/dL 10/23/2023 11:15 AM BOUNTY HUNTER [facility] LABORATORY SERVICES [facility] HEMATOCRIT 38.7(L) 40.0 - 48.0 % 10/23/2023 11:15 AM BOUNTY HUNTER [facility] LABORATORY SERVICES - [facility] MCV 94.0 82.0 - 99.0 fL 10/23/2023 11:15 AM BOUNTY HUNTER [facility] LABORATORY SERVICES [facility] MCH 29.7 27.8 - 34.5 pg 10/23/2023 11:15 AM BOUNTY HUNTER [facility] LABORATORY SERVICES [facility] MCHC 31.6(L) 32.5 - 35.5 g/dL 10/23/2023 11:15 AM BOUNTY HUNTER [facility] LABORATORY SERVICES [facility] RDW 17.3(H) 11.5 - 14.5 % 10/23/2023 11:15 AM BOUNTY HUNTER [facility] LABORATORY SERVICES [facility] PLATELETS 264 160 - 420 K/uL 10/23/2023 11:15 AM BOUNTY HUNTER [facility] LABORATORY SERVICES [facility] MPV 9.6 8.7 - 12.7 fL 10/23/2023 11:15 AM BOUNTY HUNTER [facility] LABORATORY SERVICES [facility] NEUTROPHILS 67 % 10/23/2023 11:15 AM BOUNTY HUNTER [facility] LABORATORY SERVICES [facility] LYMPHOCYTES 20 % 10/23/2023 11:15 AM BOUNTY HUNTER [facility] LABORATORY SERVICES [facility] MONOCYTES 5 % 10/23/2023 11:15 AM BOUNTY HUNTER [facility] LABORATORY SERVICES [facility] EOSINOPHILS 8 % 10/23/2023 11:15 AM BOUNTY HUNTER [facility] LABORATORY SERVICES [facility] BASOPHILS 1 % 10/23/2023 11:15 AM BOUNTY HUNTER [facility] LABORATORY SERVICES [facility] NEUTROPHIL ABSOLUTE 8.50(H) 1.90 - 7.00 K/uL 10/23/2023 11:15 AM BOUNTY HUNTER [facility] LABORATORY SERVICES [facility] LYMPHOCYTE ABSOLUTE 2.50 0.70 - 4.50 K/uL 10/23/2023 11:15 AM BOUNTY HUNTER [facility] LABORATORY SERVICES [facility] MONOCYTE ABSOLUTE 0.60 0.10 - 1.30 K/uL 10/23/2023 11:15 AM BOUNTY HUNTER [facility] LABORATORY SERVICES [facility] EOSINOPHIL ABSOLUTE 1.00(H) 0.00 - 0.70 K/uL 10/23/2023 11:15 AM BOUNTY HUNTER [facility] LABORATORY SERVICES [facility] BASOPHILS ABSOLUTE 0.10 0.00 - 0.20 K/uL 10/23/2023 11:15 AM [facility] Blood Collection / Unknown 10/23/2023 2:45 AM BOUNTY HUNTER 10/23/2023 10:44 AM BOUNTY HUNTER Erik Chairez MD HEMATOLOGY ORDERABLES Final Resu lt [facility] CLIA# [id number] [address] [place] [address] * (ABNORMAL) BASIC METABOLIC PANEL (10/23/2023 2:45 AM BOUNTY HUNTER) SODIUM 139 136 - 145 mmol/L 10/23/2023 11:42 AM [facility] POTASSIUM 4.5 3.4 - 5.1 mmol/L 10/23/2023 11:42 AM [facility] CHLORIDE 100 98 - 107 mmol/L 10/23/2023 11:42 AM [facility] CO2 24 22 - 29 mmol/L 10/23/2023 11:42 AM [facility] CALCIUM 9.6 8.6 - 10.4 mg/dL 10/23/2023 11:42 AM [facility] BUN 36(H) 6 - 20 mg/dL 10/23/2023 11:42 AM [facility] CREATININE 0.95 0.67 - 1.17 mg/dL 10/23/2023 11:42 AM [facility] Comment:The GFR result is no t clinically significant on patients <18 or >70 years of age. GLUCOSE 86 74 - 99 mg/dL 10/23/2023 11:42 AM [facility] GFR >60 mL/min/1.7 3 sq meter 10/23/2023 11:42 AM [facility] Comment:eGFR calculated with 2020 CKD-EPI equation. Vegetarian diet, extremely high or low muscle mass, and may affect results. Cystatin C with Glomerular Filtration Rate is a suitable alternative for these patients. 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
--- OUTSIDE RECORDS SUMMARY | 2025-03-04 13:50 | XMS_ITS | Encounter Summary ---
Author Organization [facility] Address [address] [place] [address] Care Team Providers Care Eating Disorder Specialist Name Role Phone Unavailable Primary Care Provider Unavailabl e Encounter Details Date Type Department Care Team (Late st Contact Info) Description 10/17/2023 Lab Requisition [facility] Laboratory Services [address] [place] [address] [place] [address] [place] [address] Social History Tobacco Use Types Packs/Day Years Used Date Smoking Tobacco: Never Assessed Sex and Gender Information Value Date Recorded Sex Assigned at Not on file Legal Sex Male 9:18 AM DENSITOMETER READER Gender Identity Not on file Sexual Orientation Not on file documented as of this encounter Plan of Treatment Not on file documented as of this encounter Procedures Procedure Name Priority Date/Time Associated Diagnosis Comments CBC WITH DIFFERENTIAL Routine 10/17/2023 2:15 AM DENSITOMETER READER MAGNESIUM LEVEL Routine 10/17/2023 2:15 AM DENSITOMETER READER RENAL FUNCTION PANEL Routine 10/17/2023 2:15 AM DENSITOMETER READER documented in this encounter Results * MAGNESIUM LEVEL (10/17/2023 2:15 AM DENSITOMETER READER) MAGNESIUM 2.3 1.6 - 2.6 mg/dL 10/17/2023 9:56 AM DENSITOMETER READER [facility] Blood Collection / Unknown 10/17/2023 2:15 AM DENSITOMETER READER 10/17/2023 9:00 AM DENSITOMETER READER Erik Chairez MD CHEMISTRY ORDERABLES Final Resul t [facility] CLIA# [id number] [address] [place] [address] * (ABNORMAL) CBC WITH DIFFERENTIAL (10/17/2023 2:15 AM DENSITOMETER READER) WBC 6.7 4.5 - 10.5 K/uL 10/17/2023 9:34 AM DENSITOMETER READER [facility] RBC 3.73(L) 4.50 - 5.40 M/uL 10/17/2023 9:34 AM DENSITOMETER READER [facility] HEMOGLOBIN 11.1(L) 13.6 - 16.5 g/dL 10/17/2023 9:34 AM DENSITOMETER READER [facility] HEMATOCRIT 35.0(L) 40.0 - 48.0 % 10/17/2023 9:34 AM DENSITOMETER READER [facility] MCV 93.8 82.0 - 99.0 fL 10/17/2023 9:34 AM DENSITOMETER READER [facility] MCH 29.8 27.8 - 34.5 pg 10/17/2023 9:34 AM DENSITOMETER READER [facility] MCHC 31.8(L) 32.5 - 35.5 g/dL 10/17/2023 9:34 AM DENSITOMETER READER [facility] RDW 17.4(H) 11.5 - 14.5 % 10/17/2023 9:34 AM DENSITOMETER READER [facility] PLATELETS 214 160 - 420 K/uL 10/17/2023 9:34 AM DENSITOMETER READER [facility] MPV 9.5 8.7 - 12.7 fL 10/17/2023 9:34 AM DENSITOMETER READER [facility] NEUTROPHILS 50 % 10/17/2023 9:34 AM DENSITOMETER READER [facility] LYMPHOCYTES 28 % 10/17/2023 9:34 AM DENSITOMETER READER [facility] MONOCYTES 8 % 10/17/2023 9:34 AM DENSITOMETER READER [facility] EOSINOPHILS 13 % 10/17/2023 9:34 AM DENSITOMETER READER [facility] BASOPHILS 0 % 10/17/2023 9:34 AM DENSITOMETER READER [facility] NEUTROPHIL ABSOLUTE 3.40 1.90 - 7.00 K/uL 10/17/2023 9:34 AM DENSITOMETER READER [facility] LYMPHOCYTE ABSOLUTE 1.90 0.70 - 4.50 K/uL 10/17/2023 9:34 AM DENSITOMETER READER [facility] MONOCYTE ABSOLUTE 0.50 0.10 - 1.30 K/uL 10/17/2023 9:34 AM DENSITOMETER READER [facility] EOSINOPHIL ABSOLUTE 0.90(H) 0.00 - 0.70 K/uL 10/17/2023 9:34 AM DENSITOMETER READER [facility] BASOPHILS ABSOLUTE 0.00 0.00 - 0.20 K/uL 10/17/2023 9:34 AM DENSITOMETER READER [facility] Blood Collection / Unknown 10/17/2023 2:15 AM DENSITOMETER READER 10/17/2023 9:00 AM DENSITOMETER READER us Erik Chairez MD HEMATOLOGY ORDERABLES Final Resu lt [facility] CLIA# [id number] [place] [address] * (ABNORMAL) RENAL FUNCTION PANEL (10/17/2023 2:15 AM DENSITOMETER READER) SODIUM 137 136 - 145 mmol/L 10/17/2023 9:56 AM [facility] Solid Sound [facility] POTASSIUM 4.0 3.4 - 5.1 mmol/L 10/17/2023 9:56 AM [facility] CHLORIDE 99 98 - 107 mmol/L 10/17/2023 9:56 AM [facility] Solid Sound [facility] CO2 23 22 - 29 mmol/L 10/17/2023 9:56 AM [facility] Solid Sound [facility] CALCIUM 9.2 8.6 - 10.4 mg/dL 10/17/2023 9:56 AM [facility] Solid Sound [facility] BUN 42(H) 6 - 20 mg/dL 10/17/2023 9:56 AM [facility] CREATININE 1.00 0.67 - 1.17 mg/dL 10/17/2023 9:56 AM [facility] Comment:The GFR result is no t clinically significant on patients <18 or >70 years of age. GLUCOSE 72(L) 74 - 99 mg/dL 10/17/2023 9:56 AM [facility] ALBUMIN 3.2(L) 3.5 - 5.2 g/dL 10/17/2023 9:56 AM [facility] PHOSPHORUS 2.9 2.5 - 4.5 mg/dL 10/17/2023 9:56 AM [facility] GFR >60 mL/min/1.7 3 sq meter 10/17/2023 9:56 AM [facility] Comment:eGFR calculated with 2020 CKD-EPI equation. Vegetarian diet, extremely high or low muscle mass, and may affect results. Cystatin C with Glomerular Filtration Rate is a suitable alternative for these patients. 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
--- OUTSIDE RECORDS SUMMARY | 2025-03-04 13:50 | XMS_ITS | Encounter Summary ---
Author Organization [facility] Address [address] [place] [address] Care Team Providers Care Gear Shaper Set Up Operator Name Role Phone Demond Stark MD Primary Care Provider Encounter Details Date Type Department Care Team (Late st Contact Info) Description 03/01/2025 Telephone [facility] Cardiology [address] [facility] [address] [place] [address] Mando Luna MD [address] [facility] [address] [facility] [address], [address] [place], [place] [id number] Social History Tobacco Use Types Packs/Day Years [...] on file Legal Sex Male 8:49 AM WIRELESS SALES 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 Pt has been checking bp prior to medications in the morning. Advised to check bp 1-2 hours after taking his losartan in the morning and keep a log over the next week. Call with updated bp readings if still elevated or discuss with MAFat upcoming appt in a couple weeks. They will also discuss the need for labs at upcoming appt. * Telephone Encounter - Alina Bahena - 03/01/2025 2:30 PM CDT Pts spouse requesting blood work be ordered to check to make sure the losartan (COZAAR) 25 mg has not affected his kidneys at all also she would like a call back to discuss some issues he is having with high BP a few reading are 159/100, 165/95, and 144/95 please advise thank you Contact: documented in this encounter Plan of Treatment Not on file documented as of this encounter Visit Diagnoses Not on filedocumented in this encounter Care Teams Gear Shaper Set Up Operator Relationship Specialty Start Date End Date Demond Stark MD PCP - General 07/23/11 documented as of this encounter
--- OUTSIDE RECORDS SUMMARY | 2025-03-04 13:50 | XMS_ITS | Encounter Summary ---
Author Organization [facility] Address [address] [place] [address] Care Team Providers Care Bore Mill Operator Name Role Phone Unavailable Primary Care Provider Unavailabl e Encounter Details Date Type Department Care Team (Late st Contact Info) Description 11/04/2023 Lab Requisition [facility] Laboratory Services [address] [place] [address] [place] [address] [place] [address] Social History Tobacco Use Types Packs/Day Years Used Date Smoking Tobacco: Never Assessed Sex and Gender Information Value Date Recorded Sex Assigned at Not on file Legal Sex Male 9:18 AM ARTIST'S MODEL Gender Identity Not on file Sexual Orientation Not on file documented as of this encounter Plan of Treatment Not on file documented as of this encounter Procedures Procedure Name Priority Date/Time Associated Diagnosis Comments CBC WITH DIFFERENTIAL Routine 11/04/2023 3:45 AM ARTIST'S MODEL BASIC METABOLIC PANEL Routine 11/04/2023 3:45 AM ARTIST'S MODEL documented in this encounter Results * (ABNORMAL) CBC WITH DIFFERENTIAL (11/04/2023 3:45 AM ARTIST'S MODEL) WBC 12.2(H) 4.5 - 10.5 K/uL 11/04/2023 8:52 AM ARTIST'S MODEL [facility] - [facility] RBC 4.11(L) 4.50 - 5.40 M/uL 11/04/2023 8:52 AM ARTIST'S MODEL [facility] HEMOGLOBIN 11.7(L) 13.6 - 16.5 g/dL 11/04/2023 8:52 AM ARTIST'S MODEL [facility] HEMATOCRIT 37.9(L) 40.0 - 48.0 % 11/04/2023 8:52 AM ARTIST'S MODEL [facility] MCV 92.2 82.0 - 99.0 fL 11/04/2023 8:52 AM ARTIST'S MODEL [facility] MCH 28.5 27.8 - 34.5 pg 11/04/2023 8:52 AM ARTIST'S MODEL [facility] MCHC 30.9(L) 32.5 - 35.5 g/dL 11/04/2023 8:52 AM ARTIST'S MODEL [facility] RDW 17.0(H) 11.5 - 14.5 % 11/04/2023 8:52 AM ARTIST'S MODEL [facility] PLATELETS 272 160 - 420 K/uL 11/04/2023 8:52 AM ARTIST'S MODEL [facility] MPV 10.0 8.7 - 12.7 fL 11/04/2023 8:52 AM ARTIST'S MODEL [facility] NEUTROPHILS 45 % 11/04/2023 8:52 AM ARTIST'S MODEL [facility] LYMPHOCYTES 38 % 11/04/2023 8:52 AM ARTIST'S MODEL [facility] MONOCYTES 7 % 11/04/2023 8:52 AM ARTIST'S MODEL [facility] EOSINOPHILS 11 % 11/04/2023 8:52 AM ARTIST'S MODEL [facility] BASOPHILS 1 % 11/04/2023 8:52 AM ARTIST'S MODEL [facility] NEUTROPHIL ABSOLUTE 5.50 1.90 - 7.00 K/uL 11/04/2023 8:52 AM ARTIST'S MODEL [facility] LYMPHOCYTE ABSOLUTE 4.60(H) 0.70 - 4.50 K/uL 11/04/2023 8:52 AM ARTIST'S MODEL [facility] MONOCYTE ABSOLUTE 0.80 0.10 - 1.30 K/uL 11/04/2023 8:52 AM ARTIST'S MODEL [facility] EOSINOPHIL ABSOLUTE 1.30(H) 0.00 - 0.70 K/uL 11/04/2023 8:52 AM ARTIST'S MODEL [facility] BASOPHILS ABSOLUTE 0.10 0.00 - 0.20 K/uL 11/04/2023 8:52 AM [facility] Health News [facility] Blood 11/04/2023 3:45 AM ARTIST'S MODEL 11/04/2023 8:24 AM ARTIST'S MODEL Erik Chairez MD HEMATOLOGY ORDERABLES Final Resu lt [facility] CLIA# [id number] [place] [address] * (ABNORMAL) BASIC METABOLIC PANEL (11/04/2023 3:45 AM ARTIST'S MODEL) SODIUM 144 136 - 145 mmol/L 11/04/2023 9:49 AM [facility] POTASSIUM 5.3(H) 3.4 - 5.1 mmol/L 11/04/2023 9:49 AM [facility] CHLORIDE 103 98 - 107 mmol/L 11/04/2023 9:49 AM [facility] CO2 26 22 - 29 mmol/L 11/04/2023 9:49 AM [facility] CALCIUM 10.7(H) 8.6 - 10.4 mg/dL 11/04/2023 9:49 AM [facility] BUN 38(H) 6 - 20 mg/dL 11/04/2023 9:49 AM [facility] CREATININE 0.95 0.67 - 1.17 mg/dL 11/04/2023 9:49 AM [facility] Comment:The GFR result is no t clinically significant on patients <18 or >70 years of age. GLUCOSE 114(H) 74 - 99 mg/dL 11/04/2023 9:49 AM [facility] GFR >60 mL/min/1.7 3 sq meter 11/04/2023 9:49 AM [facility] Comment:eGFR calculated with 2020 CKD-EPI equation. Vegetarian diet, extremely high or low muscle mass, and may affect results. Cystatin C with Glomerular Filtration Rate is a suitable alternative for these patients. ANION GAP 15 8 - 16 mmol/L 11/04/2023 9:49 AM ARTIST'S MODEL [facility] Blood 11/04/2023 3:45 AM ARTIST'S MODEL 11/04/2023 8:24 AM ARTIST'S MODEL Erik Chairez MD CHEMISTRY ORDERABLES Final Resul t [facility] CLIA# [id number] [place] [address] documented in this encounter Visit Diagnoses Not on filedocumented in this encounter Additional Health Concerns Infection Onset Date Last Indicated Resolved Time CRE-CP Comment:10/09/23 Klebsiella pneumoniae, Sputum 10/09/2023 10/09/2023 05/28/2024 2:37 PM C DT 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
--- OUTSIDE RECORDS SUMMARY | 2025-03-04 13:50 | XMS_ITS | Encounter Summary ---
Author Organization [facility] Address [address] [place] [address] Care Team Providers Care Hydraulic Press Servicer Name Role Phone Unavailable Primary Care Provider Unavailabl e Encounter Details Date Type Department Care Team (Late st Contact Info) Description 11/10/2023 Lab Requisition [facility] Laboratory Services [address] [place] [address] [place] [address] [place] [address] Social History Tobacco Use Types Packs/Day Years Used Date Smoking Tobacco: Never Assessed Sex and Gender Information Value Date Recorded Sex Assigned at Not on file Legal Sex Male 9:18 AM LOW HEEL BUILDER Gender Identity Not on file Sexual Orientation Not on file documented as of this encounter Plan of Treatment Not on file documented as of this encounter Procedures Procedure Name Priority Date/Time Associated Diagnosis Comments CBC WITH DIFFERENTIAL Routine 11/10/2023 6:10 AM LOW HEEL BUILDER BASIC METABOLIC PANEL Routine 11/10/2023 6:10 AM LOW HEEL BUILDER documented in this encounter Results * (ABNORMAL) CBC WITH DIFFERENTIAL (11/10/2023 6:10 AM LOW HEEL BUILDER) WBC 7.9 4.5 - 10.5 K/uL 11/10/2023 6:[address] [facility] SERVICES - [facility] RBC 3.65(L) 4.50 - 5.40 M/uL 11/10/2023 6:[address] [facility] HEMOGLOBIN 10.8(L) 13.6 - 16.5 g/dL 11/10/2023 6:[address] [facility] - [facility] HEMATOCRIT 33.6(L) 40.0 - 48.0 % 11/10/2023 6:[address] [facility] LABORAT[facility] SERVICES [facility] MCV 92.0 82.0 - 99.0 fL 11/10/2023 6:[address] [facility] SERVICES [facility] MCH 29.7 27.8 - 34.5 pg 11/10/2023 6:[address] [facility] SERVICES [facility] MCHC 32.2(L) 32.5 - 35.5 g/dL 11/10/2023 6:[address] [facility] SERVICES [facility] RDW 17.0(H) 11.5 - 14.5 % 11/10/2023 6:[address] [facility] SERVICES [facility] PLATELETS 251 160 - 420 K/uL 11/10/2023 6:55 AM LOW HEEL BUILDER [facility] MPV 9.2 8.7 - 12.7 fL 11/10/2023 6:[address] [facility] NEUTROPHILS 62 % 11/10/2023 6:[address] [facility] SERVICES [facility] LYMPHOCYTES 22 % 11/10/2023 6:55 AM LOW HEEL BUILDER [facility] MONOCYTES 5 % 11/10/2023 6:55 AM LOW HEEL BUILDER [facility] EOSINOPHILS 10 % 11/10/2023 6:55 AM LOW HEEL BUILDER [facility] BASOPHILS 1 % 11/10/2023 6:[address] [facility] SERVICES [facility] NEUTROPHIL ABSOLUTE 4.90 1.90 - 7.00 K/uL 11/10/2023 6:[address] [facility] SERVICES [facility] LYMPHOCYTE ABSOLUTE 1.70 0.70 - 4.50 K/uL 11/10/2023 6:[address] [facility] SERVICES [facility] MONOCYTE ABSOLUTE 0.40 0.10 - 1.30 K/uL 11/10/2023 6:[address] [facility] SERVICES [facility] EOSINOPHIL ABSOLUTE 0.80(H) 0.00 - 0.70 K/uL 11/10/2023 6:55 AM LOW HEEL BUILDER [facility] BASOPHILS ABSOLUTE 0.10 0.00 - 0.20 K/uL 11/10/2023 6:55 AM [facility] Blood 11/10/2023 6:10 AM LOW HEEL BUILDER 11/10/2023 6:41 AM LOW HEEL BUILDER Erik Chairez MD HEMATOLOGY ORDERABLES Final Resu lt [facility] CLIA# [id number] [place] [address] * (ABNORMAL) BASIC METABOLIC PANEL (11/10/2023 6:10 AM LOW HEEL BUILDER) SODIUM 139 136 - 145 mmol/L 11/10/2023 7:14 AM [facility] POTASSIUM 4.2 3.4 - 5.1 mmol/L 11/10/2023 7:14 AM [facility] CHLORIDE 103 98 - 107 mmol/L 11/10/2023 7:14 AM [facility] CO2 26 22 - 29 mmol/L 11/10/2023 7:14 AM [facility] CALCIUM 9.4 8.6 - 10.4 mg/dL 11/10/2023 7:14 AM [facility] BUN 39(H) 6 - 20 mg/dL 11/10/2023 7:14 AM [facility] CREATININE 0.98 0.67 - 1.17 mg/dL 11/10/2023 7:14 AM [facility] Comment:The GFR result is no t clinically significant on patients <18 or >70 years of age. GLUCOSE 111(H) 74 - 99 mg/dL 11/10/2023 7:14 AM [facility] GFR >60 mL/min/1.7 3 sq meter 11/10/2023 7:14 AM [facility] Comment:eGFR calculated with 2020 CKD-EPI equation. Vegetarian diet, extremely high or low muscle mass, and may affect results. Cystatin C with Glomerular Filtration Rate is a suitable alternative for these patients. ANION GAP 10 8 - 16 mmol/L 11/10/2023 7:[address] [facility]ORAT[facility] SERVICES [facility] Blood 11/10/2023 6:10 AM LOW HEEL BUILDER 11/10/2023 6:41 AM LOW HEEL BUILDER Erik Chairez MD CHEMISTRY ORDERABLES Final Resul t 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
--- OUTSIDE RECORDS SUMMARY | 2025-03-04 13:50 | XMS_ITS | Encounter Summary ---
Author Organization [facility] Address 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 Gender Identity Not on file Sexual Orientation Not on file documented as of this encounter Plan of Treatment Not on file documented as of this encounter Procedures Procedure Name Priority Date/Time Associated Diagnosis Comments CBC WITH DIFFERENTIAL Routine 10/29/2023 3:20 AM DIE TECHNICIAN BASIC METABOLIC PANEL Routine 10/29/2023 3:20 AM DIE TECHNICIAN documented in this encounter Results * (ABNORMAL) CBC WITH DIFFERENTIAL (10/29/2023 3:20 AM DIE TECHNICIAN) WBC 8.0 4.5 - 10.5 K/uL 10/29/2023 8:18 AM DIE TECHNICIAN [facility] RBC 3.85(L) 4.50 - 5.40 M/uL 10/29/2023 8:18 AM DIE TECHNICIAN [facility] HEMOGLOBIN 11.6(L) 13.6 - 16.5 g/dL 10/29/2023 8:18 AM DIE TECHNICIAN [facility] HEMATOCRIT 35.7(L) 40.0 - 48.0 % 10/29/2023 8:18 AM DIE TECHNICIAN [facility] SERVICES [facility] MCV 92.6 82.0 - 99.0 fL 10/29/2023 8:18 AM DIE TECHNICIAN [facility] MCH 30.0 27.8 - 34.5 pg 10/29/2023 8:18 AM DIE TECHNICIAN [facility] SERVICES [facility] MCHC 32.4(L) 32.5 - 35.5 g/dL 10/29/2023 8:18 AM DIE TECHNICIAN [facility] SERVICES [facility] RDW 17.3(H) 11.5 - 14.5 % 10/29/2023 8:18 AM DIE TECHNICIAN [facility] SERVICES [facility] PLATELETS 255 160 - 420 K/uL 10/29/2023 8:18 AM DIE TECHNICIAN [facility] SERVICES [facility] MPV 9.9 8.7 - 12.7 fL 10/29/2023 8:18 AM DIE TECHNICIAN [facility] SERVICES [facility] NEUTROPHILS 61 % 10/29/2023 8:18 AM DIE TECHNICIAN [facility] SERVICES [facility] LYMPHOCYTES 22 % 10/29/2023 8:18 AM DIE TECHNICIAN [facility] MONOCYTES 6 % 10/29/2023 8:18 AM DIE TECHNICIAN [facility] EOSINOPHILS 11 % 10/29/2023 8:18 AM DIE TECHNICIAN [facility] BASOPHILS 1 % 10/29/2023 8:18 AM DIE TECHNICIAN [facility] SERVICES [facility] NEUTROPHIL ABSOLUTE 4.90 1.90 - 7.00 K/uL 10/29/2023 8:18 AM DIE TECHNICIAN [facility] SERVICES [facility] LYMPHOCYTE ABSOLUTE 1.70 0.70 - 4.50 K/uL 10/29/2023 8:18 AM DIE TECHNICIAN [facility] MONOCYTE ABSOLUTE 0.50 0.10 - 1.30 K/uL 10/29/2023 8:18 AM DIE TECHNICIAN [facility] SERVICES [facility] EOSINOPHIL ABSOLUTE 0.80(H) 0.00 - 0.70 K/uL 10/29/2023 8:18 AM DIE TECHNICIAN [facility] SERVICES [facility] BASOPHILS ABSOLUTE 0.00 0.00 - 0.20 K/uL 10/29/2023 8:18 AM [facility] Blood Collection / Unknown 10/29/2023 3:20 AM DIE TECHNICIAN 10/29/2023 7:59 AM DIE TECHNICIAN Erik Chairez MD HEMATOLOGY ORDERABLES Final Resu lt [facility] CLIA# [id number] [place] [address] * (ABNORMAL) BASIC METABOLIC PANEL (10/29/2023 3:20 AM DIE TECHNICIAN) SODIUM 141 136 - 145 mmol/L 10/29/2023 8:38 AM [facility] POTASSIUM 4.5 3.4 - 5.1 mmol/L 10/29/2023 8:38 AM [facility] CHLORIDE 101 98 - 107 mmol/L 10/29/2023 8:38 AM [facility] CO2 28 22 - 29 mmol/L 10/29/2023 8:38 AM [facility] CALCIUM 10.2 8.6 - 10.4 mg/dL 10/29/2023 8:38 AM [facility] BUN 42(H) 6 - 20 mg/dL 10/29/2023 8:38 AM [facility] CREATININE 1.05 0.67 - 1.17 mg/dL 10/29/2023 8:38 AM [facility] Comment:The GFR result is no t clinically significant on patients <18 or >70 years of age. GLUCOSE 112(H) 74 - 99 mg/dL 10/29/2023 8:38 AM [facility] GFR >60 mL/min/1.7 3 sq meter 10/29/2023 8:38 AM [facility] Comment:eGFR calculated with 2020 CKD-EPI equation. Vegetarian diet, extremely high or low muscle mass, and may affect results. Cystatin C with Glomerular Filtration Rate is a suitable alternative for these patients. ANION GAP 12 8 - 16 mmol/L 10/29/2023 8:38 AM DIE TECHNICIAN [facility] SERVICES [facility] Blood Collection / Unknown 10/29/2023 3:20 AM DIE TECHNICIAN 10/29/2023 7:59 AM DIE TECHNICIAN Erik Chairez MD CHEMISTRY ORDERABLES Final Resul t [facility] CLIA# [id number] [place] [address] documented in this encounter Visit Diagnoses Not [...]
--- OUTSIDE RECORDS SUMMARY | 2025-03-04 13:50 | XMS_ITS | Encounter Summary ---
Author Organization [facility] Address [address] [place] [id number] Care Team Providers Care Panel Sewer Name Role Phone Demond Stark MD Primary Care Provider [phone] Encounter Details Date Type Department Care Team (Late st Contact Info) Description 10/16/2016 Orders Only [facility] ProviderTaylor MD [address] [place], [place] [id number] Social History Tobacco Use Types Packs/Day Years Used Date Smoking Tobacco: Former Cigarettes Q uit: 09/23/1969 Alcohol Use Standard Drinks/Week Comments Yes 0 (1 standard drink = 0.6 oz pur e alcohol) Sex and Gender Information Value Date Recorded Sex Assigned at Not on file Legal Sex Male 8:49 AM TOUR DRIVER Gender Identity Not on file Sexual [...] on filedocumented in this encounter Care Teams Panel Sewer Relationship Specialty Start Date End Date Demond Stark MD PCP - General 07/23/11 documented as of this encounter
--- OUTSIDE RECORDS SUMMARY | 2025-03-04 13:50 | XMS_ITS | Encounter Summary ---
Author Organization [facility] Address [address] [place] [address] Care Team Providers Care Woodyard Crane Operator Name Role Phone Unavailable Primary Care Provider Unavailabl e Encounter Details Date Type Department Care Team (Late st Contact Info) Description 10/14/2023 Lab Requisition [facility] Laboratory Services [address] [place] [address] [place] [address] [place] [address] Social History Tobacco Use Types Packs/Day Years Used Date Smoking Tobacco: Never Assessed Sex and Gender Information Value Date Recorded Sex Assigned at Not on file Legal Sex Male 9:18 AM ASSOCIATE ACCOUNT 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 Gender Identity Not on file Sexual Orientation Not on file documented as of this encounter Plan of Treatment Not on file documented as of this encounter Procedures Procedure Name Priority Date/Time Associated Diagnosis Comments CBC WITH DIFFERENTIAL Routine 10/14/2023 2:35 AM ASSOCIATE ACCOUNT MANAGER TRIGLYCERIDE Routine 10/14/2023 2:35 AM ASSOCIATE ACCOUNT MANAGER PHOSPHORUS Routine 10/14/2023 2:35 AM ASSOCIATE ACCOUNT MANAGER MAGNESIUM LEVEL Routine 10/14/2023 2:35 AM ASSOCIATE ACCOUNT MANAGER COMPREHENSIVE METABOLIC PANEL Routine 10/14/2023 2:35 AM ASSOCIATE ACCOUNT MANAGER documented in this encounter Results * (ABNORMAL) TRIGLYCERIDE (10/14/2023 2:35 AM ASSOCIATE ACCOUNT MANAGER) TRIGLYCERIDE 161(H) <150 mg/dL 10/14/2023 8:26 AM ASSOCIATE ACCOUNT MANAGER [facility] Blood Collection / Unknown 10/14/2023 2:35 AM ASSOCIATE ACCOUNT MANAGER 10/14/2023 7:22 AM ASSOCIATE ACCOUNT MANAGER Narrative [facility] - 10/14/2023 8:26 AM ASSOCIATE ACCOUNT MANAGER TRIGLYCERIDES mg/dL Normal < 150 Borderline High 150 - 199 High 200 - 499 Very High >= 500 Based on AHA/NCEP Guidelines. us Erik Chairez MD CHEMISTRY ORDERABLES Final Resul t Performing Organization Address [facility]/ZIP Co de Phone Number [facility] CLIA# [id number] [place] [address] * PHOSPHORUS (10/14/2023 2:35 AM ASSOCIATE ACCOUNT MANAGER) PHOSPHORUS 3.4 2.5 - 4.5 mg/dL 10/14/2023 8:26 AM ASSOCIATE ACCOUNT MANAGER [facility] Blood Collection / Unknown 10/14/2023 2:35 AM ASSOCIATE ACCOUNT MANAGER 10/14/2023 7:22 AM ASSOCIATE ACCOUNT MANAGER us Erik Chairez MD CHEMISTRY ORDERABLES Final Resul t Performing Organization Address [facility]/[place]UST Co de Phone Number [facility] [id number] [place] [address] * MAGNESIUM LEVEL (10/14/2023 2:35 AM ASSOCIATE ACCOUNT MANAGER) MAGNESIUM 2.5 1.6 - 2.6 mg/dL 10/14/2023 8:26 AM ASSOCIATE ACCOUNT MANAGER [facility] Blood Collection / Unknown 10/14/2023 2:35 AM ASSOCIATE ACCOUNT MANAGER 10/14/2023 7:22 AM ASSOCIATE ACCOUNT MANAGER us Erik Chairez MD CHEMISTRY ORDERABLES Final Resul t Performing Organization Address [facility]/ZIP Co de Phone Number [facility]# [id number] [place] [address] * (ABNORMAL) CBC WITH DIFFERENTIAL (10/14/2023 2:35 AM ASSOCIATE ACCOUNT MANAGER) [facility] [address] WBC 9.2 4.5 - 10.5 K/uL 10/14/2023 8:02 AM [facility] RBC 3.58(L) 4.50 - 5.40 M/uL 10/14/2023 8:02 AM [facility] HEMOGLOBIN 11.0(L) 13.6 - 16.5 g/dL 10/14/2023 8:02 AM [facility] HEMATOCRIT 33.5(L) 40.0 - 48.0 % 10/14/2023 8:02 AM [facility] MCV 93.6 82.0 - 99.0 fL 10/14/2023 8:02 AM [facility] MCH 30.6 27.8 - 34.5 pg 10/14/2023 8:02 AM [facility] MCHC 32.7 32.5 - 35.5 g/dL 10/14/2023 8:02 AM [facility] RDW 17.7(H) 11.5 - 14.5 % 10/14/2023 8:02 AM [facility] PLATELETS 214 160 - 420 K/uL 10/14/2023 8:02 AM [facility] MPV 9.2 8.7 - 12.7 fL 10/14/2023 8:02 AM [facility] NEUTROPHILS 58 % 10/14/2023 8:02 AM [facility] LYMPHOCYTES 24 % 10/14/2023 8:02 AM [facility] MONOCYTES 8 % 10/14/2023 8:02 AM ASSOCIATE ACCOUNT MANAGER [facility] EOSINOPHILS 9 % 10/14/2023 8:02 AM [facility] BASOPHILS 0 % 10/14/2023 8:02 AM [facility] NEUTROPHIL ABSOLUTE 5.40 1.90 - 7.00 K/uL 10/14/2023 8:02 AM [facility] LYMPHOCYTE ABSOLUTE 2.20 0.70 - 4.50 K/uL 10/14/2023 8:02 AM [facility] MONOCYTE ABSOLUTE 0.70 0.10 - 1.30 K/uL 10/14/2023 8:02 AM [facility] EOSINOPHIL ABSOLUTE 0.90(H) 0.00 - 0.70 K/uL 10/14/2023 8:02 AM [facility] BASOPHILS ABSOLUTE 0.00 0.00 - 0.20 K/uL 10/14/2023 8:02 AM [facility] Blood Collection / Unknown 10/14/2023 2:35 AM ASSOCIATE ACCOUNT MANAGER 10/14/2023 7:22 AM ASSOCIATE ACCOUNT MANAGER Erik Chairez MD HEMATOLOGY ORDERABLES Final Resu lt [facility] CLIA# [id number] [place] [address] * (ABNORMAL) COMPREHENSIVE METABOLIC PANEL (10/14/2023 2:35 AM ASSOCIATE ACCOUNT MANAGER) SODIUM 135(L) 136 - 145 mmol/L 10/14/2023 8:26 AM [facility] POTASSIUM 4.0 3.4 - 5.1 mmol/L 10/14/2023 8:26 AM [facility] CHLORIDE 97(L) 98 - 107 mmol/L 10/14/2023 8:26 AM [facility] CO2 24 22 - 29 mmol/L 10/14/2023 8:26 AM [facility] CALCIUM 9.5 8.6 - 10.4 mg/dL 10/14/2023 8:26 AM [facility] BUN 36(H) 6 - 20 mg/dL 10/14/2023 8:26 AM [facility] CREATININE 1.18(H) 0.67 - 1.17 mg/dL 10/14/2023 8:26 AM [facility] Comment:The GFR result is no t clinically significant on patients <18 or >70 years of age. GLUCOSE 84 74 - 99 mg/dL 10/14/2023 8:26 AM [facility] TOTAL PROTEIN 7.4 6.3 - 8.7 g/dL 10/14/2023 8:26 AM [facility] ALBUMIN 3.6 3.5 - 5.2 g/dL 10/14/2023 8:26 AM [facility] BILIRUBIN TOTAL 0.6 0.2 - 1.1 mg/dL 10/14/2023 8:26 AM [facility] ALKALINE PHOSPHATASE 99 40 - 150 U/L 10/14/2023 8:26 AM [facility] AST 22 0 - 41 U/L 10/14/2023 8:26 AM [facility] ALT 16 0 - 41 U/L 10/14/2023 8:26 AM [facility] GFR >60 mL/min/1.7 3 sq meter 10/14/2023 8:26 AM [facility] Comment:eGFR calculated with 2020 CKD-EPI equation. Vegetarian diet, extremely high or low muscle mass, and may affect results. Cystatin C with Glomerular Filtration Rate is a suitable alternative for these patients. 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
--- OUTSIDE RECORDS SUMMARY | 2025-03-04 13:50 | XMS_ITS | Clinical Summary ---
Author Organization [facility] [employer] Address [address] [facility] [place] [address] Care Team Providers Care Gate Attendant Name Role Phone Demond Stark MD Primary Care Provider [phone] Source Comments [facility] [employer],non-owned Affiliates and Associated Physician Practices is amultiple site organization consisting of ambulatory clinics and hospital sitesin [place], [place], [place] and [place]. This disclosure is being madepursuant to the Care Everywhere program and may not contain all information available regarding this patient. Last updated 18.[facility] [employer] Allergies Active Allergy Reactions Criticality Noted Date [...] 60 days 30 tablet 1 12/26/2024 Active amoxicillin (Amoxil) 250 MG capsule Take 1 (one) capsule by mouth 3 times daily Dental work 02/04/2025 Active Active Problems Problem Noted Date Diagnosed [...] 04/13/2024 Personal history of nicotine dependence 04/13/20 Personal history of other infectious and parasit [...] 07/20/2013 Overview (01/01/2025): Hypertension Coronary arteriosclerosis in [place] artery 12/20 Overview (01/01/2025): IRENE GROSSMAN VSSL 2010: Non STEMI and CABG x3 (HOBSON to the LAD, sequential RA to OM and D1) History of coronary artery bypass surgery 2009 Overview (01/01/2025): AORTOCORONARY BYPASS Encounters Date Type Department Care Team Description 02/05/2025 8:30 AM CDT Office Visit [facility] [place] [address] [place] [phone] Callie Mendoza DO Zenker's diverticulum (Primary Dx); Frailty; Aspiration pneumonia due to gastric secretions, unspecified laterality, unspecified part of lung (HCC); Clostridium difficile diarrhea; Presence of externally removable percutaneous endoscopic gastrostomy (PEG) tube (HCC) 02/05/2025 Travel 01/01/2025 9:30 AM CDT Office Visit [facility] - Neurology [address] [place] [phone] Alberto Jeffers MD Dizziness (Primary Dx); Parkinsonism, unspecified Parkinsonism type (HCC) 01/01/2025 Travel 12/22/2024 1:23 PM CDT Anesthesia Event [facility] ENDOSCOPY [address] [place] [address] Nnamdi Miller DO Dobbs, Kristin L, BARREL CHARRER-PAYMENT ANALYST 12/22/2024 1:00 PM CDT - 12/22/2024 2:30 PM CDT Surgery [facility] ENDOSCOPY [address] [place] [address] Callie Mendoza DO EGD w/Z-poem 12/22/2024 11:53 AM CDT - 12/25/2024 4:30 PM CDT Hospital Encounter [facility] SHORT STAY UNIT [address] [place] [phone] Callie Mendoza DO Vaidyan, Philip B, MD Surgery General Discharge Disposition: Home Health Care [facility] 12/22/2024 Travel 12/16/2024 Telephone [facility] ENDOSCOPY [address] [place] [phone] Alina Hinojosa Procedure (Procedure Confirmation) 12/08/2024 Telephone [facility] - [place] [address] [facility], [place] [address] Karthik Keyes, tobacco sieve operator (EGD w/Zpoem for zenkers with Dr. Mendoza for patient seen in her clinic) 12/07/2024 8:13 AM CDT - 12/07/2024 11:59 PM CDT Hospital Encounter [facility] DIAGNOSTIC RAD [address] [place] [phone] Callie Mendoza DO Discharge Disposition: Home or Self Care from Last 3 Months Immunizations Immunization Administration [...] and heating? Not hard at all 12/25/2024 [facility] of Occupat ional Health - Occupational Stress [...] any time in the past 12 [facility], were you homeless or living in a prison (including now)? 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 Male 5:43 PM HUMAN INTELLIGENCE Gender Identity Not on file Sexual Orientation Not on file Last Filed Vital Signs Vital Sign Reading Time Taken Comments Blood Pressure 146/95 02/05/2025 8:41 AM CDT Pulse 90 01/01/2025 9:15 AM CDT Temperature 36.7 C (98.1 F) 02/05/2025 8:40 AM CDT Respiratory Rate 15 12/25/2024 11:32 AM CDT Oxygen Saturation 98% 02/05/2025 8:40 AM CDT Inhaled Oxygen Concentration - - Weight 93.9 kg (207 lb) 02/05/2025 8:40 AM CDT Height 182.9 cm (6') 02/05/2025 8:40 AM CDT Body Mass Index 28.07 02/05/2025 8:40 AM CDT Plan of Treatment Upcoming Encounters Date Type Department Care Team (Late st Contact Info) Description 04/07/2025 2:00 PM CDT Office Visit [facility] - Neurology [facility] [facility], [place] [phone] Venus Mckinley APRN-FOAM CHARGER [address] [place] [address] [place] [phone] 04/29/2025 10:00 AM CDT Appointment [facility] DIAGNOSTIC RAD [address] [place] [address] Callie Mendoza DO [address] [facility] 3RD FLOOR DOOR 1 [place] [address] 02/04/2026 9:00 AM CDT Office Visit [facility] - [place] [address] [facility], [place] [address] Callie Mendoza DO [address] [facility] 3RD FLOOR DOOR [address] [place] [address] Health Maintenance Due Date Last Done Comments MEDICARE AWV 12 MONTHS 1940 DTAP/TDAP/TD VACCINES (1 - Tdap) 02/21/1959 PNEUMOCOCCAL VACCINE 50+ (1 of 2 - PCV) 02/21/1959 ZOSTER VACCINE (1 of 2) 02/21/1990 Respiratory Syncytial Virus (RSV) Vaccine Pt: or over 60 yrs (1 - 1-dose 75+ series) 02/21/2015 COVID-19 VACCINE (2023-2 5 season) 2024 DEPRESSION SCREENING 09/23/2024 INFLUENZA [...] Problems Recent Progress Patient-Stated? Author Nutrition General On track( 025 8:41 AM CDT) No Yohana Foster, RN Note: Expected end date: Working on plan Nutritional status is maintained or improving. Interventions: Take nutritional supplements as ordered Collaborate with the clinical injection machine operator Oral care Use soft toothbrushes Keep [...] TUBE NOTE Routine 12/22/2024 1:40 PM CDT MS ENDOSCOPIC ULTRASOUND EXAM 12/22/2024 1:19 PM CDT [...] 80.0 - 98.0 fL 12/25/2024 1:22 AM [facility] MCH 31.0 26.7 - 33.6 pg 12/25/2024 1:22 AM [facility] MCHC 33.8 31.7 - 36.3 g/dL 12/25/2024 [...] 12/25/2024 12:59 AM CDT 12/25/2024 1:12 AM T us Yasir Boyce MD LAB - HEMATOLOGY ORDERABLES Final Result [facility] [address] [place] [address] [phone] * (ABNORMAL) RENAL FUNCTION PANEL (12/25/2024 12:59 [...] 275 - 295 mOsm/kg 12/25/2024 1:43 AM [facility] eGFR by CKD-EPI 73(L) >=90 mL/min/1.7 3 m2 12/25/2024 1:43 AM [facility] Blood BLOOD SPECIMEN / Unknown Lab Venipuncture / Unknown 12/25/2024 12:59 AM CDT 12/25/2024 1:07 AM T us Yasir Boyce MD LAB - CHEMISTRY ORDERABLES F inal Result [facility] [address] [place] [phone], [facility] [phone] * MAGNESIUM BLOOD (12/25/2024 12:59 AM CDT) Only the most recent of3 resultswithin the time period is included. Magnesium 2.0 1.6 - 2.6 mg/dL 12/25/2024 1:43 AM CDT [facility] Blood BLOOD SPECIMEN / Unknown Lab Venipuncture / Unknown 12/25/2024 12:59 AM CDT 12/25/2024 1:07 AM CDT us Yasir Boyce MD LAB - CHEMISTRY ORDERABLES F inal Result Performing Organization Address City/[facility]/ZIP Co de Phone Number [address] [address], [facility] [phone] * [place] SWALLOWING FUNCTION STUDY (12/24/2024 9:33 [...] Tube Placement: Patient Location: OR. Procedure: intubation ([address]607) Procedure Section: Sedation: under general anesthesia. Indications [...] Performed the procedure. Nnamdi Miller DO GENERAL ANESTHESIA ORDERA BLES [...] clips) were successfully placed (MR conditional). Clip etl informatica architect: iCreate. There was no bleeding at the end [...] entire procedure. Procedure Code(s): --- Professional --- 30242, 22, Esophagogastroduo denoscopy, flexible, transoral; diagnostic, including collection of specimen(s) by brushing or washing, when performed (separate procedure) 24244, Unlisted procedure, esophagus Diagnosis Code(s): --- Professional --- K22.2, Esophageal obstruction Q39.6, Congenital diverticulum of esophagus K22.89, Other specified disease of esophagus Q39.9, Congenital malformation of esophagus, unspecified K44.9, Diaphragmatic hernia without obstruction or gangrene K22.5, Diverticulum of esophagus, acquired CPT copyright 2021 [employer]. All rights reserved. The codes documented in this report are preliminary and upon automation software engineer review may be revised to meet current compliance requirements. Callie Mendoza DO 12/22/2024 7:31:42 PM This report has been signed electronically. Note Initiated On: 12/22/2024 1:15 PM Number of Addenda: [address] [id number] [facility] PROVATION 12/22/2024 1:15 PM CDT Callie Mendoza DO GI PROCEDURE ORDERABLES Edited R esult - Final [facility] PROVATION from Last 3 Months Insurance MEDICARE [facility] * Guarantor: LINCOLN KIMBALL Account Type Relation to Patient Date of Phone Billing Address Personal/Family Spouse [facility] STATE [address] [address] [employer]THEM MEDICARE Advance Directives * Full Code (Latest Code Status on File) Date Activated Date Inactivated Comments 12/22/2024 4:39 PM 12/25/2024 7:01 PM Care Teams Gate Attendant Relationship Specialty Start Date End Date Demond Stark MD [address] [place] [address] PCP - General 10/03/15
--- OUTSIDE RECORDS SUMMARY | 2025-03-04 13:50 | XMS_ITS | Encounter Summary ---
Author Organization [facility] Health Address [address] [facility] [place] [address] Care Team Providers Care Steel Handler Name Role Phone Demond Stark MD Primary Care Provider [phone] Encounter Details Date Type Department Care Team (Late Contact Info) Description 06/13/2023 Lab Requisition [facility] - Derm[facility] Lab [address] [facility] [place] [phone] Jaxon Anaya MD [address] [place], [place] [phone] Social History Tobacco Use Types Packs/Day Years Used Date Smoking Tobacco: Former Cigarettes Q uit: 09/23/1969 Smokeless Tobacco: Never Alcohol Use Standard Drinks/Week Comments Yes 0 (1 standard drink = 0.6 oz pur e alcohol) Sex and Gender Information Value Date Recorded Sex Assigned at Not on file Legal Sex Male 5:43 PM CARNIVAL WORKER Gender Identity Not on file Sexual Orientation Not on file documented as of this encounter Plan of Treatment Upcoming Encounters Date Type Department Care Team (Late Contact Info) Description 04/07/2025 2:00 PM CDT Office Visit [facility] - Neurology [address] [facility], [place] [phone] Venus Mckinley APRN-RISSA [address] [place] [phone] 04/29/2025 10:00 AM CDT Appointment [facility] DIAGNOSTIC RAD [address] [place] [phone] Callie Mendoza DO [address] [facility] 3RD FLOOR DOOR 1 [place] [phone] 02/04/2026 9:00 AM CDT Office Visit [facility] Physician Group - [address] [facility], [place] [phone] Callie Mendoza DO [address] [facility] 3RD FLOOR DO[address] [place] [phone] documented as of this encounter Procedures Procedure Name Priority Date/Time Associated Diagnosis Comments DERMATOPATHOLOGY Routine 06/12/2023 12:0 0 AM CDT documented in this encounter Results * DERMATOPATHOLOGY (06/12/2023 12:00 AM CDT) Case Report Dermatopathology Report Case: [id number] Authorizing Provider: Jaxon Anaya MD Collected: 06/12/2023 12:00 AM Ordering Location: [facility] DermPath Lab Received: 06/13/2023 01:28 PM Pathologist: Meliza Womack MD Specimen: Skin, mid medial left thigh 3 3:42 PM CDT DERMATOPATHOLOGY LABORATORY Final Diagnosis Specimen A. 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 The specimen consists of a shave biopsy measuring 14u67t0 mm. Jar 0. 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 3 3:42 PM CDT DERMATOPATHOLOGY LABORATORY Disclaimer An external and internal positive and negative controls are appropriate for the histochemical, immunohistochemical and immunofluorescence stain(s) in this case (if any), except where stated explicitly. The performance characteristics of the stain(s) cited in this report were developed and its performance characteristic determined by the Dermatopathology Laboratory at [facility], directed by Dr. Georgina Young. These tests need not be, and therefore are not, approved by the [place] Food and Drug Administration. The tests are used for clinical purposes. Billing Codes Specimen Charges Stain Charges 25072 1 73915 1 3 3:42 PM CDT DERMATOPATHOLOGY LABORATORY Embedded Images 3 3:42 PM CDT DERMATOPATHOLOGY LABORATORY Pathology/Cytolog y TISSUE SPECIMEN FROM SKIN / Unknown 06/12/2023 06/13/2023 1:28 PM CDT Jaxon Anaya MD LAB - PATHOLOGY/CYTOLOGY ORD ERABLES Final Result DERMATOPATHOLOGY LABORATORY [facility] Department of Dermatology [address], [address] [phone] documented in this encounter Visit Diagnoses Not on filedocumented in this encounter Care Teams Steel Handler Relationship Specialty Start Date End Date Demond Stark MD [address] [place] [address] PCP - General 10/03/15 documented as of this encounter
--- OUTSIDE RECORDS SUMMARY | 2025-03-04 13:50 | XMS_ITS | Clinical Summary ---
Author Organization [facility] Address [address] [place] [address] Care Team Providers Care Animal Laboratory Technician Name Role Phone Demond Stark MD Primary Care Provider [phone] Allergies Active Allergy Reactions Criticality Noted Date Comments Diphenhydramine Hallucinations Medium 11/27/2023 Was not able to sleep and made him more anxious Lisinopril Cough Low Reaction: Cough, Pravastatin Muscle pain Medium Reaction: Muscular Pain, Quetiapine Other (See comments) Low 06/05/2024 Hallucinations, insomnia Simvastatin Muscle pain Medium Reaction: Muscular Pain, Fsjrzsp-Gah-Cnd Reductase Inhibitors Muscle pain,Other (See comments) Medium 10/03/2015 Pt reports leg weakness/heavine ss when taking zocor. Medications levothyroxine (SYNTHROID) 112 mcg tablet Take 1 tablet (112 mcg total) by mouth reviewer sales before breakfast Active aspirin 81 mg tablet [...] 08/31/2024 Assessment & Plan (10/05/2024 10:54 AM FILM RECORDIST): Avoid ear cleaning techniques Avoid water to ears Follow up in 9 months for right ear tube check, earlier with ear drainage Assessment & Plan (08/31/2024 11:40 AM FILM RECORDIST): Right myringotomy with T-tube placement Risks and [...] and before and after Pre-operative cardiovascular examination 11/27/2 024 Dizziness 07/09/2024 Assessment & Plan (08/31/2024 11:39 AM FILM RECORDIST): Right myringotomy with T-tube placement Risks and [...] 08/07/2017 Assessment & Plan (08/07/2017 6:01 PM FILM RECORDIST): Has had elevated LFTs and a fatty liver. Bradycardia 08/07/2017 Assessment & Plan (08/07/2017 5:58 PM FILM RECORDIST): Asymptomatic bradycardia, on low-dose metoprolol which may eventually need to be reduced or discontinued. Traumatic subdural hematoma of neuraxis 10/15/19 17 Overview (12/28/2016): Traumatic subdural hematoma without loss of consciousness, sequela Statin intolerance 10/15/2016 Overview (12/28/2016): Statin intolerance Essential hypertension 07/20/2013 Overview (12/28/2016): Hypertension Assessment & Plan (08/07/2017 5:57 PM FILM RECORDIST): Hypertension is not under good control; reviewing [...] HYPERLIPIDEMIA Assessment & Plan (08/07/2017 6:03 PM FILM RECORDIST): Has refued further attempts at statin therapy. History of coronary artery bypass surgery 2009 Overview (12/26/2016): AORTOCORONARY BYPASS Coronary arteriosclerosis in [place] artery 12/20 Overview (08/07/2017): CRNRY ATHRSCL NATVE VSSL 2009: Non STEMI and CABG x3 (HOBSON to the LAD, sequential RA to OM and D1) Assessment & Plan (08/07/2017 6:00 PM FILM RECORDIST): 2009: Non STEMI and CABG x3 (HOBSON [...] 03/04/2018 Assessment & Plan (08/07/2017 5:58 PM FILM RECORDIST): Patient is going to have knee surgery soon and needs preoperative clearance. Coronary artery disease appears stable. Low risk for cardiac event with proposed surgery. 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/2009 03/25/2023 Overview (12/28/2016): SUBENDO INFARCT, SUBSEQ Encounters Date Type Department Care Team Description 03/01/2025 Telephone [facility] Cardiology [address] [facility] [address] [place] [phone] Cedric Dumont MD 01/19/2025 Telephone [facility] Cardiology [address] [place] [address] [address] [place] [phone] Cedric Dumont MD 12/21/2024 Results Follow-Up [facility] Cardiology [address] [place] [address] [address] [place] [phone] Cedric Dumont MD Transthoracic Echo (TTE) Complete W Doppler/CF 12/17/2024 2:00 PM CDT Ancillary Procedure [facility] Cardiology [address] [place] [address] [address] [place] [phone] Persistent atrial fibrillation (HCC) from Last 3 Months Immunizations Immunization Administration [...] on file Legal Sex Male 8:49 AM FILM RECORDIST Gender Identity Not on file Sexual Orientation Not on file Obstetrics History Last Filed Vital Signs Vital Sign Reading Time Taken Comments Blood Pressure 160/88 09/22/2024 1:04 PM FILM RECORDIST Pulse 83 09/22/2024 1:04 PM FILM RECORDIST Temperature 36.3 C (97.4 F) 09/22/2024 1:04 PM FILM RECORDIST Respiratory Rate 18 09/22/2024 1:04 PM FILM RECORDIST Oxygen Saturation 97% 09/22/2024 1:04 PM FILM RECORDIST Inhaled Oxygen Concentration - - Weight 97.5 kg (214 lb 15.2 oz) 09/22/2024 9:41 AM FILM RECORDIST Height 182.9 cm (6') 09/22/2024 9:41 AM FILM RECORDIST Body Mass Index 29.15 09/22/2024 9:41 AM FILM RECORDIST Plan of Treatment Health Maintenance Due Date [...] 09/01/2025 09/01/2024 Medical Devices Implanted Type Area Wafer Fabrication Operator Device Identifier Shelf Expiration Date Model / Serial / Lot [employer] 1.32mm 4.8mm Modify Ear T Tube Ventilation Ultrasil Sterile Blue [id number] - [id number] Implanted:Qty: 1 on 09/22/2024 by Laura Oakes DO at [facility] Right: Ear [employer] 07/13/2034 [id number] / / [id number] Procedures Procedure Name Priority Date/Time Associated Diagnosis Comments TRANSTHORACIC ECHO (TTE) COMPLETE W DOPPLER/CF WO CONTRAST Routine 12/17/2024 2:57 PM CDT Persistent atrial fibrillation (HCC) from Last 3 Months Results * TRANSTHORACIC ECHO (TTE) COMPLETE W DOPPLER/CF WO CONTRAST (12/17/2024 2:57 PM CDT) LV EF 45-50 % CONS SCIMAGE Anatomical Region Laterality Modality Ultrasound 12/17/2024 2:11 PM CDT Narrative 12/17/2024 4:20 PM CDT [facility] Cardiology [address], [place] [address] [address], [place] [address] P:[phone] P:[phone] Echocardiographic Report Patient Name: JIGARLINCOLN L : 1940 Study Date: 12/17/2024 2:11:41 PM Gender: M Tech: SCOTTY Location: [facility] Provider: CEDRIC DUMONT Height(Cm): 183 BSA: 2.22 [...] FINDINGS: Interpretation Site: Exam was interpreted at [facility]. Left Ventricle: Normal left ventricular size. Mild [...] Procedure Note Koki Jimenez MD - 12/17/2024 [facility] Cardiology [address] [facility] [address] [id number] [facility] [address] [address] P:[phone] P:[phone] Echocardiographic Report Patient Name: LINCOLN KIMBALL L : 1940 Study Date: 12/17/2024 2:11:41 PM Gender: M Tech: [facility] Location: [facility] Provider: CEDRIC DUMONT Height(Cm): 183 BSA: 2.22 [...] FINDINGS: Interpretation Site: Exam was interpreted at [facility]. Left Ventricle: Normal left ventricular size. Mild [...] Last 3 Months Insurance MEDICARE MEDICARE [facility] MEDICARE SUPPLEMENT Care Teams Animal Laboratory Technician Relationship Specialty Start Date End Date Demond Stark MD [facility] - General 07/23/11
--- OUTSIDE RECORDS SUMMARY | 2025-03-04 13:50 | XMS_ITS | Encounter Summary ---
Author Organization [facility] Address [address] [place] [address] Care Team Providers Care Bait Painter Name Role Phone Unavailable Primary Care Provider Unavailabl e Encounter Details Date Type Department Care Team (Late st Contact Info) Description 10/10/2023 Lab Requisition [facility] Laboratory Services [address] [place] [address] [place] [address] [place] [address] Social History Tobacco Use Types Packs/Day Years Used Date Smoking Tobacco: Never Assessed Sex and Gender Information Value Date Recorded Sex Assigned at Not on file Legal Sex Male 9:18 AM BUILDING CARPENTER HELPER Gender Identity Not on file Sexual Orientation Not on file documented as of this encounter Plan of Treatment Not on file documented as of this encounter Procedures Procedure Name Priority Date/Time Associated Diagnosis Comments CARBAPENEM RESISTANT ORGANISM Routine 10/09/2023 9:30 PM BUILDING CARPENTER HELPER SPUTUM CULTURE WITH GRAM STAIN Routine 10/09/2023 9:30 PM BUILDING CARPENTER HELPER documented in this encounter Results * (ABNORMAL) CARBAPENEM RESISTANT ORGANISM (10/09/2023 9:30 PM BUILDING CARPENTER HELPER) ORGANISM TESTED Klebsiella pneumoniae 10/12/2023 4:25 PM BUILDING CARPENTER HELPER [facility] Carbapenem Resistance Gene Detected(A) Not Detected 10/12/2023 4:25 PM BUILDING CARPENTER HELPER [facility] KPC (carbapenem-re sistance gene) by PCR DETECTED(A) Not Detected 10/12/2023 4:25 PM BUILDING CARPENTER HELPER [facility] Sputum Collection / Unknown 10/09/2023 9:30 PM BUILDING CARPENTER HELPER 10/10/2023 9:54 AM BUILDING CARPENTER HELPER [facility] - 10/12/2023 4:25 PM BUILDING CARPENTER HELPER This isolate is a carbapenem-resistant Organism (SCHOOL COORDINATOR) AND is a carbapenamase-furniture reproducer. If inpatient, place patient in Enhanced Contact Isolation. The [employer] Xpert Carba-R PCR assay detects the presence of KPC, NDM, VIM, OXA- 48, and IMP gene sequences that induce carbapenemase production in gram negative bacteria. This test was performed using an FDA approved screening methodology. Erik Chairez MD MICROBIOLOGY - GENERAL ORDERABLE S Final Result [facility]# [id number] [address] [place] [address] * (ABNORMAL) SPUTUM CULTURE WITH GRAM STAIN (10/09/2023 9:30 PM BUILDING CARPENTER HELPER) CULTURE KLEBSIELLA PNEUMONIAE(A) LUCINA MCG/ML 10/17/2023 10:47 AM BUILDING CARPENTER HELPER [facility] [employer] [facility] Comment: This isolate is a Carbapenem-Resistant Organism AND is a carbapenemase furniture reproducer (SCHOOL COORDINATOR-CP). If inpatient, place patient in Enhanced Contact Isolation. Multiple drug resistant organism (MDRO). CULTURE Absent Normal Shahrzad LUCINA MCG/ML 10/17/2023 10:47 AM [facility] [employer] [facility] GRAM STAIN Non diagnostic pattern LUCINA MCG/ML 10/17/2023 10:47 AM [facility] GRAM STAIN No WBC observed 10/17/2023 10:47 AM [facility] [employer] [facility] Sputum Collection / Unknown 10/09/2023 9:30 PM BUILDING CARPENTER HELPER 10/10/2023 9:54 AM BUILDING CARPENTER HELPER [facility] [employer] [facility] - 10/17/2023 10:47 AM BUILDING CARPENTER HELPER Results called to Kelly Suarez RN, [...] Edited Result - Final Performing Organization Address City/State/[facility] Co de Phone Number [facility]# [id number] [address] [place] [address] documented in this encounter Visit Diagnoses Not on filedocumented in this encounter Additional Health Concerns Infection Onset Date Last Indicated Resolved Time CRE-CP Comment:10/09/23 Klebsiella pneumoniae, Sputum 10/09/2023 10/09/2023 05/28/2024 2:37 PM C DT Multi Drug Resistant Organis m (MDRO) Comment:10/09/23 Klebsiella pneumoniae, CRE-CP organism, Sputum 10/09/2023 10/09/2023 SCHOOL COORDINATOR-CP Comment:10/09/23 Klebsiella pneumoniae, Sputum 10/09/2023 05/28/2024 documented as of this encounter
--- OUTSIDE RECORDS SUMMARY | 2025-03-04 13:50 | XMS_ITS | Encounter Summary ---
Author Organization [facility] Address [address] [place] [address] Care Team Providers Care Religious Ritual Slaughterer Name Role Phone Unavailable Primary Care Provider Unavailabl e Encounter Details Date Type Department Care Team (Late st Contact Info) Description 10/26/2023 Lab Requisition [facility] Laboratory Services [address] [place] [address] [place] [address] [place] [address] Social History Tobacco Use Types Packs/Day Years Used Date Smoking Tobacco: Never Assessed Sex and Gender Information Value Date Recorded Sex Assigned at Not on file Legal Sex Male 9:18 AM LUCERNE FARMER Gender Identity Not on file Sexual Orientation Not on file documented as of this encounter Plan of Treatment Not on file documented as of this encounter Procedures Procedure Name Priority Date/Time Associated Diagnosis Comments CBC WITH DIFFERENTIAL Routine 10/26/2023 3:20 AM LUCERNE FARMER BASIC METABOLIC PANEL Routine 10/26/2023 3:20 AM LUCERNE FARMER documented in this encounter Results * (ABNORMAL) CBC WITH DIFFERENTIAL (10/26/2023 3:20 AM LUCERNE FARMER) WBC 9.2 4.5 - 10.5 K/uL 10/26/2023 5:32 AM LUCERNE FARMER [facility] - [facility] RBC 3.83(L) 4.50 - 5.40 M/uL 10/26/2023 5:32 AM LUCERNE FARMER [facility] HEMOGLOBIN 11.4(L) 13.6 - 16.5 g/dL 10/26/2023 5:32 AM LUCERNE FARMER [facility] HEMATOCRIT 35.4(L) 40.0 - 48.0 % 10/26/2023 5:32 AM LUCERNE FARMER [facility] MCV 92.4 82.0 - 99.0 fL 10/26/2023 5:32 AM LUCERNE FARMER [facility] - [facility] MCH 29.6 27.8 - 34.5 pg 10/26/2023 5:32 AM LUCERNE FARMER [facility] MCHC 32.0(L) 32.5 - 35.5 g/dL 10/26/2023 5:32 AM LUCERNE FARMER [facility] RDW 17.3(H) 11.5 - 14.5 % 10/26/2023 5:32 AM LUCERNE FARMER [facility] PLATELETS 240 160 - 420 K/uL 10/26/2023 5:32 AM LUCERNE FARMER [facility] MPV 9.3 8.7 - 12.7 fL 10/26/2023 5:32 AM LUCERNE FARMER [facility] NEUTROPHILS 69 % 10/26/2023 5:32 AM LUCERNE FARMER [facility] LYMPHOCYTES 21 % 10/26/2023 5:32 AM LUCERNE FARMER [employer] [facility] MONOCYTES 6 % 10/26/2023 5:32 AM LUCERNE FARMER [facility] EOSINOPHILS 4 % 10/26/2023 5:32 AM LUCERNE FARMER [facility] BASOPHILS 1 % 10/26/2023 5:32 AM LUCERNE FARMER [facility] NEUTROPHIL ABSOLUTE 6.30 1.90 - 7.00 K/uL 10/26/2023 5:32 AM LUCERNE FARMER [facility] LYMPHOCYTE ABSOLUTE 1.90 0.70 - 4.50 K/uL 10/26/2023 5:32 AM [facility]UCERNE FARMER [facility] MONOCYTE ABSOLUTE 0.50 0.10 - 1.30 K/uL 10/26/2023 5:32 AM LUCERNE FARMER [facility] EOSINOPHIL ABSOLUTE 0.40 0.00 - 0.70 K/uL 10/26/2023 5:32 AM LUCERNE FARMER [facility] BASOPHILS ABSOLUTE 0.00 0.00 - 0.20 K/uL 10/26/2023 5:32 AM [facility] Blood Collection / Unknown 10/26/2023 3:20 AM LUCERNE FARMER 10/26/2023 4:57 AM LUCERNE FARMER Erik Chairez MD HEMATOLOGY ORDERABLES Final Resu lt [facility] CLIA# [id number] [place] [address] * (ABNORMAL) BASIC METABOLIC PANEL (10/26/2023 3:20 AM LUCERNE FARMER) SODIUM 137 136 - 145 mmol/L 10/26/2023 5:58 AM [facility] POTASSIUM 4.2 3.4 - 5.1 mmol/L 10/26/2023 5:58 AM [facility] CHLORIDE 100 98 - 107 mmol/L 10/26/2023 5:58 AM [facility] CO2 27 22 - 29 mmol/L 10/26/2023 5:58 AM [facility] CALCIUM 9.8 8.6 - 10.4 mg/dL 10/26/2023 5:58 AM [facility] BUN 39(H) 6 - 20 mg/dL 10/26/2023 5:58 AM [facility] CREATININE 1.01 0.67 - 1.17 mg/dL 10/26/2023 5:58 AM [facility] Comment:The GFR result is no t clinically significant on patients <18 or >70 years of age. GLUCOSE 110(H) 74 - 99 mg/dL 10/26/2023 5:58 AM [facility] GFR >60 mL/min/1.7 3 sq meter 10/26/2023 5:58 AM [facility] Comment:eGFR calculated with 2020 CKD-EPI equation. Vegetarian diet, extremely high or low muscle mass, and may affect results. Cystatin C with Glomerular Filtration Rate is a suitable alternative for these patients. ANION GAP 10 8 - 16 mmol/L 10/26/2023 5:58 AM LUCERNE FARMER [facility] Blood Collection / Unknown 10/26/2023 3:20 AM LUCERNE FARMER 10/26/2023 4:57 AM LUCERNE FARMER Erik Chairez MD CHEMISTRY ORDERABLES Final Resul t [facility] CLIA# [id number] [place] [address] documented in this encounter Visit Diagnoses Not on filedocumented in this encounter Additional Health Concerns Infection Onset Date Last Indicated Resolved Time 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
--- OUTSIDE RECORDS SUMMARY | 2025-03-04 13:50 | XMS_ITS | Clinical Summary ---
Author Organization [facility] Address [address] [place] [address] Phone Care Team Providers Care Brand Activation Manager Name Role Phone Unavailable Primary Care Provider Unavailabl e Social History Tobacco Use Types Packs/Day Years Used Date Smoking Tobacco: Never Assessed Sex and Gender Information Value Date Recorded Sex Assigned at Not on file Legal Sex Male 9:18 AM LEGAL ARCHIVIST Gender Identity Not on file Sexual Orientation [...] Klebsiella pneumoniae, CRE-CP organism, Sputum 10/09/2023 10/09/2023 DOUGHNUT GLAZIER-CP Comment:10/09/23 Klebsiella pneumoniae, Sputum 10/09/2023 05/28/[address] [place] [address]
[2025-03-04 14:58] LABS: Folic Acid 12.5 ng/mL (2.76->20)
== END 2025-03-04 13:16 | disposition home or self-care (01) ==
LOC: ANHLAB 13:16
PROVIDERS: PCP Family Medicine; Visit Provider Nurse Practitioner Family
DX: D64.9 Anemia, unspecified (principal)
CPT/HCPCS: 36415; 82607; 82746; 85027

== ENCOUNTER 2025-03-09 12:52 | Outpatient (CLI) | payer MEDICARE, SELFPAY ==
--- OUTSIDE RECORDS SUMMARY | 2025-03-09 13:25 | XMS_ITS | Clinical Summary ---
Author Organization [facility] Address [address] [place] [address] Care Team Providers Care Perfume Maker Name Role Phone Demond Stark MD Primary Care Provider [phone] Allergies Active Allergy Reactions Criticality Noted Date Comments Diphenhydramine Hallucinations Medium 11/27/2023 Was not able to sleep and made him more anxious Lisinopril Cough Low Reaction: Cough, Pravastatin Muscle pain Medium Reaction: Muscular Pain, Quetiapine Other (See comments) Low 06/05/2024 Hallucinations, insomnia Simvastatin Muscle pain Medium Reaction: Muscular Pain, Cqwduaf-Bmk-Tyx Reductase Inhibitors Muscle pain,Other (See comments) Medium 10/03/2015 Pt reports leg weakness/heavine ss when taking zocor. Medications levothyroxine (SYNTHROID) 112 mcg tablet Take 1 tablet (112 mcg total) by mouth reflow operator before breakfast Active aspirin 81 mg [...] 08/31/2024 Assessment & Plan (10/05/2024 10:54 AM FOREMAN/PROJECT MANAGER): Avoid ear cleaning techniques Avoid water to ears Follow up in 9 months for right ear tube check, earlier with ear drainage Assessment & Plan (08/31/2024 11:40 AM FOREMAN/PROJECT MANAGER): Right myringotomy with T-tube placement Risks [...] 07/09/2024 Assessment & Plan (08/31/2024 11:39 AM FOREMAN/PROJECT MANAGER): Right myringotomy with T-tube placement Risks [...] 08/07/2017 Assessment & Plan (08/07/2017 6:01 PM FOREMAN/PROJECT MANAGER): Has had elevated LFTs and a fatty liver. Bradycardia 08/07/2017 Assessment & Plan (08/07/2017 5:58 PM FOREMAN/PROJECT MANAGER): Asymptomatic bradycardia, on low-dose metoprolol which may eventually need to be reduced or discontinued. Traumatic subdural hematoma of neuraxis 10/15/19 17 Overview (12/28/2016): Traumatic subdural hematoma without loss of consciousness, sequela Statin intolerance 10/15/2016 Overview (12/28/2016): Statin intolerance Essential hypertension 07/20/2013 Overview (12/28/2016): Hypertension Assessment & Plan (08/07/2017 5:57 PM FOREMAN/PROJECT MANAGER): Hypertension is not under good control; [...] HYPERLIPIDEMIA Assessment & Plan (08/07/2017 6:03 PM FOREMAN/PROJECT MANAGER): Has refued further attempts at statin therapy. History of coronary artery bypass surgery 2009 Overview (12/26/2016): AORTOCORONARY BYPASS Coronary arteriosclerosis in [place] artery 12/20 Overview (08/07/2017): CRNRY ATHRSCL NATVE VSSL 2009: Non STEMI and CABG x3 (HOBSON to the LAD, sequential RA to OM and D1) Assessment & Plan (08/07/2017 6:00 PM FOREMAN/PROJECT MANAGER): 2009: Non STEMI and CABG x3 [...] 03/04/2018 Assessment & Plan (08/07/2017 5:58 PM FOREMAN/PROJECT MANAGER): Patient is going to have knee surgery soon and needs preoperative clearance. Coronary artery disease appears stable. Low risk for cardiac event with proposed surgery. 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/2009 03/25/2023 Overview (12/28/2016): SUBENDO INFARCT, SUBSEQ Encounters Date Type Department Care Team Description 03/01/[address] [facility] Medical [facility] Cardiology [address] [facility] [address] [place] [phone] Cedric Dumont MD 01/19/2025 Telephone [facility] Cardiology [address] [place] [address] [address] [place] [phone] Cedric Dumont MD 12/21/2024 Results Follow-Up [facility] [address] [place] [address] [address] [place] [phone] Cedric Dumont MD Transthoracic Echo (TTE) Complete W Doppler/CF 12/17/2024 2:00 PM CDT Ancillary Procedure [facility] Medical [facility] Cardiology [address] [place] [address] [address] [place] [phone] Persistent atrial fibrillation (HCC) from Last 3 [...] on file Legal Sex Male 8:49 AM FOREMAN/PROJECT MANAGER Gender Identity Not on file Sexual Orientation Not on file Obstetrics History Last Filed Vital Signs Vital Sign Reading Time Taken Comments Blood Pressure 160/88 09/22/2024 1:04 PM FOREMAN/PROJECT MANAGER Pulse 83 09/22/2024 1:04 PM FOREMAN/PROJECT MANAGER Temperature 36.3 C (97.4 F) 09/22/2024 1:04 PM FOREMAN/PROJECT MANAGER Respiratory Rate 18 09/22/2024 1:04 PM FOREMAN/PROJECT MANAGER Oxygen Saturation 97% 09/22/2024 1:04 PM FOREMAN/PROJECT MANAGER Inhaled Oxygen Concentration - - Weight 97.5 kg (214 lb 15.2 oz) 09/22/2024 9:41 AM FOREMAN/PROJECT MANAGER Height 182.9 cm (6') 09/22/2024 9:41 AM FOREMAN/PROJECT MANAGER Body Mass Index 29.15 09/22/2024 9:41 AM FOREMAN/PROJECT MANAGER Plan of Treatment Health Maintenance Due [...] 09/01/2025 09/01/2024 Medical Devices Implanted Type Area Disability Liaison Officer Device Identifier Shelf Expiration Date Model / Serial / Lot [employer] 1.32mm 4.8mm Modify Ear T Tube Ventilation Ultrasil [employer] Blue [id number] - [id number] Implanted:Qty: 1 on 09/22/2024 by Laura Oakes DO at [facility] Right: Ear [employer] 07/13/2034 [id number] / / [id number] Procedures Procedure Name Priority Date/Time Associated Diagnosis [...] Group Cardiology [address], [place] [address] [address], [place] [address] P:[phone] P:[phone] Echocardiographic Report Patient Name: JIGARLINCOLN L : 1940 Study Date: 12/17/2024 2:11:41 PM Gender: M Tech: SCOTTY Location: [facility] Provider: CEDRIC DUMONT Height(Cm): 183 BSA: [...] FINDINGS: Interpretation Site: Exam was interpreted at [facility]. Left Ventricle: Normal left ventricular size. [...] [facility] Cardiology [address] [facility] [address] [id number] [address] [facility] [address] [place] [address] P:[phone] P:[phone] Echocardiographic Report Patient Name: LINCOLN KIMBALL L : 1940 Study Date: 12/17/2024 2:11:41 PM Gender: M Tech: [facility] Location: [facility] Provider: CEDRIC DUMONT Height(Cm): 183 BSA: [...] FINDINGS: Interpretation Site: Exam was interpreted at [facility]. Left Ventricle: Normal left ventricular size. [...] from Last 3 Months Insurance MEDICARE MEDICARE [facility] MEDICARE SUPPLEMENT Care Teams Perfume Maker Relationship Specialty Start Date End Date Demond Stark MD [facility] - General 07/23/11
--- OUTSIDE RECORDS SUMMARY | 2025-03-09 13:25 | XMS_ITS | Encounter Summary ---
Author Organization [facility] Address [address] [place] [address] Care Team Providers Care Preparation Room Worker Name Role Phone Unavailable Primary Care Provider Unavailabl e Encounter Details Date Type Department Care Team (Late st Contact Info) Description 10/26/2023 Lab Requisition [facility] Laboratory Services [address] [place] [address] [place] [address] [place] [address] Social History Tobacco Use Types Packs/Day Years Used Date Smoking Tobacco: Never Assessed Sex and Gender Information Value Date Recorded Sex Assigned at Not on file Legal Sex Male 9:18 AM COLOR WEIGHER Gender Identity Not on file Sexual Orientation Not on file documented as of this encounter Plan of Treatment Not on file documented as of this encounter Procedures Procedure Name Priority Date/Time Associated Diagnosis Comments CBC WITH DIFFERENTIAL Routine 10/26/2023 3:20 AM COLOR WEIGHER BASIC METABOLIC PANEL Routine 10/26/2023 3:20 AM COLOR WEIGHER documented in this encounter Results * (ABNORMAL) CBC WITH DIFFERENTIAL (10/26/2023 3:20 AM COLOR WEIGHER) WBC 9.2 4.5 - 10.5 K/uL 10/26/2023 5:32 AM COLOR WEIGHER [facility] LABORATORY SERVICES - [facility] RBC 3.83(L) 4.50 - 5.40 M/uL 10/26/2023 5:32 AM COLOR WEIGHER [facility] LABORATORY [facility] HEMOGLOBIN 11.4(L) 13.6 - 16.5 g/dL 10/26/2023 5:32 AM COLOR WEIGHER [facility] LABORATORY SERVICES - [facility] HEMATOCRIT 35.4(L) 40.0 - 48.0 % 10/26/2023 5:32 AM COLOR WEIGHER [facility] LABORATORY SERVICES [facility] MCV 92.4 82.0 - 99.0 fL 10/26/2023 5:32 AM COLOR WEIGHER [facility] LABORATORY SERVICES - [facility] MCH 29.6 27.8 - 34.5 pg 10/26/2023 5:32 AM COLOR WEIGHER [facility] LABORATORY SERVICES [facility] MCHC 32.0(L) 32.5 - 35.5 g/dL 10/26/2023 5:32 AM COLOR WEIGHER [facility] LABORATORY SERVICES [facility] RDW 17.3(H) 11.5 - 14.5 % 10/26/2023 5:32 AM COLOR WEIGHER [facility] LABORATORY SERVICES [facility] PLATELETS 240 160 - 420 K/uL 10/26/2023 5:32 AM COLOR WEIGHER [facility] LABORATORY SERVICES [facility] MPV 9.3 8.7 - 12.7 fL 10/26/2023 5:32 AM COLOR WEIGHER [facility] LABORATORY SERVICES [facility] NEUTROPHILS 69 % 10/26/2023 5:32 AM COLOR WEIGHER [facility] LABORATORY SERVICES [facility] LYMPHOCYTES 21 % 10/26/2023 5:32 AM COLOR WEIGHER [employer] LABORATORY SERVICES [facility] MONOCYTES 6 % 10/26/2023 5:32 AM COLOR WEIGHER [facility] LABORATORY SERVICES [facility] EOSINOPHILS 4 % 10/26/2023 5:32 AM COLOR WEIGHER [facility] LABORATORY SERVICES [facility] BASOPHILS 1 % 10/26/2023 5:32 AM COLOR WEIGHER [facility] LABORATORY SERVICES [facility] NEUTROPHIL ABSOLUTE 6.30 1.90 - 7.00 K/uL 10/26/2023 5:32 AM COLOR WEIGHER [facility] LABORATORY SERVICES [facility] LYMPHOCYTE ABSOLUTE 1.90 0.70 - 4.50 K/uL 10/26/2023 5:32 AM COLOR WEIGHER [facility] LABORATORY SERVICES [facility] MONOCYTE ABSOLUTE 0.50 0.10 - 1.30 K/uL 10/26/2023 5:32 AM COLOR WEIGHER [facility] LABORATORY SERVICES [facility] EOSINOPHIL ABSOLUTE 0.40 0.00 - 0.70 K/uL 10/26/2023 5:32 AM COLOR WEIGHER [facility] LABORATORY SERVICES [facility] BASOPHILS ABSOLUTE 0.00 0.00 - 0.20 K/uL 10/26/2023 5:32 AM [facility] Blood Collection / Unknown 10/26/2023 3:20 AM COLOR WEIGHER 10/26/2023 4:57 AM COLOR WEIGHER Erik Chairez MD HEMATOLOGY ORDERABLES Final Resu lt [facility] CLIA# [id number] [place] [address] * (ABNORMAL) BASIC METABOLIC PANEL (10/26/2023 3:20 AM COLOR WEIGHER) SODIUM 137 136 - 145 mmol/L 10/26/2023 5:58 AM [facility] POTASSIUM 4.2 3.4 - 5.1 mmol/L 10/26/2023 5:58 AM [facility] CHLORIDE 100 98 - 107 mmol/L 10/26/2023 5:58 AM [facility] CO2 27 22 - 29 mmol/L 10/26/2023 5:58 AM [facility] CALCIUM 9.8 8.6 - 10.4 mg/dL 10/26/2023 5:58 AM [facility] BUN 39(H) 6 - 20 mg/dL 10/26/2023 5:58 AM [facility] CREATININE 1.01 0.67 - 1.17 mg/dL 10/26/2023 5:58 AM [facility] Comment:The GFR result is no t clinically significant on patients <18 or >70 years of age. GLUCOSE 110(H) 74 - 99 mg/dL 10/26/2023 5:58 AM [facility] GFR >60 mL/min/1.7 3 sq meter 10/26/2023 5:58 AM [facility] Comment:eGFR calculated with 2020 CKD-EPI equation. Vegetarian diet, extremely high or low muscle mass, and may affect results. Cystatin C with Glomerular Filtration Rate is a suitable alternative for these patients. ANION GAP 10 8 - 16 mmol/L 10/26/2023 5:58 AM COLOR WEIGHER [facility] LABORATORY SERVICES [facility] Blood Collection / Unknown 10/26/2023 3:20 AM COLOR WEIGHER 10/26/2023 4:57 AM COLOR WEIGHER Erik Chairez MD CHEMISTRY ORDERABLES Final Resul t [facility] LABORATORY SERVICES [facility] CLIA# [id number] [place] [address] documented in this encounter Visit Diagnoses Not on filedocumented in this encounter Additional Health Concerns Infection Onset Date Last Indicated Resolved Time CRE-CP Comment:10/09/23 Klebsiella pneumoniae, Sputum 10/09/2023 10/09/2023 05/28/2024 2:37 PM C DT Multi Drug Resistant Organis m (MDRO) Comment:10/09/23 Klebsiella pneumoniae, CRE-CP organism, Sputum 10/09/2023 10/09/2023 SHOVEL ENGINEER-CP Comment:10/09/23 Klebsiella pneumoniae, Sputum 10/09/2023 05/28/2024 documented as of this encounter
--- OUTSIDE RECORDS SUMMARY | 2025-03-09 13:25 | XMS_ITS | Encounter Summary ---
Author Organization [facility] Address [address] [place] [address] Care Team Providers Care Stockroom Clerk Name Role Phone Demond Stark MD Primary Care Provider [phone] Encounter Details Date Type Department Care Team (Late st Contact Info) Description 10/16/2016 Orders Only [facility] ProviderTaylor MD [address] [place], [place] [id number] Social History Tobacco Use Types Packs/Day Years Used Date Smoking Tobacco: Former Cigarettes Q uit: 09/23/1969 Alcohol Use Standard Drinks/Week Comments Yes 0 (1 standard drink = 0.6 oz pur e alcohol) Sex and Gender Information Value Date Recorded Sex Assigned at Not on file Legal Sex Male 8:49 AM IN ROOM DINING SERVER Gender Identity Not on file Sexual Orientation [...] on filedocumented in this encounter Care Teams Stockroom Clerk Relationship Specialty Start Date End Date Demond Stark MD PCP - General 07/23/11 documented as of this encounter
--- OUTSIDE RECORDS SUMMARY | 2025-03-09 13:25 | XMS_ITS | Encounter Summary ---
Author Organization [facility] Address [address] [place] [address] Care Team Providers Care Senior Net Software Developer Name Role Phone Unavailable Primary Care Provider Unavailabl e Encounter Details Date Type Department Care Team (Late st Contact Info) Description 11/10/2023 Lab Requisition [facility] Laboratory Services [address] [place] [address] [place] [address] [place] [address] Social History Tobacco Use Types Packs/Day Years Used Date Smoking Tobacco: Never Assessed Sex and Gender Information Value Date Recorded Sex Assigned at Not on file Legal Sex Male 9:18 AM TRUCK ENGINE TECHNICIAN Gender Identity Not on file Sexual Orientation Not on file documented as of this encounter Plan of Treatment Not on file documented as of this encounter Procedures Procedure Name Priority Date/Time Associated Diagnosis Comments CBC WITH DIFFERENTIAL Routine 11/10/2023 6:10 AM TRUCK ENGINE TECHNICIAN BASIC METABOLIC PANEL Routine 11/10/2023 6:10 AM TRUCK ENGINE TECHNICIAN documented in this encounter Results * (ABNORMAL) CBC WITH DIFFERENTIAL (11/10/2023 6:10 AM TRUCK ENGINE TECHNICIAN) WBC 7.9 4.5 - 10.5 K/uL 11/10/2023 6:55 AM TRUCK ENGINE TECHNICIAN [facility] LABORATORY SERVICES - [facility] RBC 3.65(L) 4.50 - 5.40 M/uL 11/10/2023 6:55 AM TRUCK ENGINE TECHNICIAN [facility] LABORATORY [facility] - [facility] HEMOGLOBIN 10.8(L) 13.6 - 16.5 g/dL 11/10/2023 6:55 AM TRUCK ENGINE TECHNICIAN [facility] LABORATORY SERVICES - [facility] HEMATOCRIT 33.6(L) 40.0 - 48.0 % 11/10/2023 6:55 AM TRUCK ENGINE TECHNICIAN [facility] LABORATORY SERVICES [facility] MCV 92.0 82.0 - 99.0 fL 11/10/2023 6:55 AM TRUCK ENGINE TECHNICIAN [facility] LABORATORY SERVICES [facility] MCH 29.7 27.8 - 34.5 pg 11/10/2023 6:55 AM TRUCK ENGINE TECHNICIAN [facility] LABORATORY SERVICES [facility] MCHC 32.2(L) 32.5 - 35.5 g/dL 11/10/2023 6:55 AM TRUCK ENGINE TECHNICIAN [facility] LABORATORY SERVICES [facility] RDW 17.0(H) 11.5 - 14.5 % 11/10/2023 6:55 AM TRUCK ENGINE TECHNICIAN [facility] LABORATORY SERVICES [facility] PLATELETS 251 160 - 420 K/uL 11/10/2023 6:55 AM TRUCK ENGINE TECHNICIAN [facility] MPV 9.2 8.7 - 12.7 fL 11/10/2023 6:55 AM TRUCK ENGINE TECHNICIAN [facility] LABORATORY SERVICES [facility] NEUTROPHILS 62 % 11/10/2023 6:55 AM TRUCK ENGINE TECHNICIAN [facility] LABORATORY SERVICES [facility] LYMPHOCYTES 22 % 11/10/2023 6:55 AM TRUCK ENGINE TECHNICIAN [facility] MONOCYTES 5 % 11/10/2023 6:55 AM TRUCK ENGINE TECHNICIAN [facility] EOSINOPHILS 10 % 11/10/2023 6:55 AM TRUCK ENGINE TECHNICIAN [facility] SERVICES [facility] BASOPHILS 1 % 11/10/2023 6:55 AM TRUCK ENGINE TECHNICIAN [facility] LABORATORY SERVICES [facility] NEUTROPHIL ABSOLUTE 4.90 1.90 - 7.00 K/uL 11/10/2023 6:55 AM TRUCK ENGINE TECHNICIAN [facility] LABORATORY SERVICES [facility] LYMPHOCYTE ABSOLUTE 1.70 0.70 - 4.50 K/uL 11/10/2023 6:55 AM TRUCK ENGINE TECHNICIAN [facility] LABORATORY SERVICES [facility] MONOCYTE ABSOLUTE 0.40 0.10 - 1.30 K/uL 11/10/2023 6:55 AM TRUCK ENGINE TECHNICIAN [facility] LABORATORY SERVICES [facility] EOSINOPHIL ABSOLUTE 0.80(H) 0.00 - 0.70 K/uL 11/10/2023 6:55 AM TRUCK ENGINE TECHNICIAN [facility] SERVICES [facility] BASOPHILS ABSOLUTE 0.10 0.00 - 0.20 K/uL 11/10/2023 6:55 AM [facility] Blood 11/10/2023 6:10 AM TRUCK ENGINE TECHNICIAN 11/10/2023 6:41 AM TRUCK ENGINE TECHNICIAN Erik Chairez MD HEMATOLOGY ORDERABLES Final Resu lt [facility] CLIA# [id number] [place] [address] * (ABNORMAL) BASIC METABOLIC PANEL (11/10/2023 6:10 AM TRUCK ENGINE TECHNICIAN) SODIUM 139 136 - 145 mmol/L 11/10/2023 7:14 AM [facility] POTASSIUM 4.2 3.4 - 5.1 mmol/L 11/10/2023 7:14 AM [facility] CHLORIDE 103 98 - 107 mmol/L 11/10/2023 7:14 AM [facility] CO2 26 22 - 29 mmol/L 11/10/2023 7:14 AM [facility] CALCIUM 9.4 8.6 - 10.4 mg/dL 11/10/2023 7:14 AM [facility] BUN 39(H) 6 - 20 mg/dL 11/10/2023 7:14 AM [facility] CREATININE 0.98 0.67 - 1.17 mg/dL 11/10/2023 7:14 AM [facility] Comment:The GFR result is no t clinically significant on patients <18 or >70 years of age. GLUCOSE 111(H) 74 - 99 mg/dL 11/10/2023 7:14 AM [facility] GFR >60 mL/min/1.7 3 sq meter 11/10/2023 7:14 AM [facility] Comment:eGFR calculated with 2020 CKD-EPI equation. Vegetarian diet, extremely high or low muscle mass, and may affect results. Cystatin C with Glomerular Filtration Rate is a suitable alternative for these patients. ANION GAP 10 8 - 16 mmol/L 11/10/2023 7:14 AM TRUCK ENGINE TECHNICIAN [facility] LABORATORY SERVICES [facility] Blood 11/10/2023 6:10 AM TRUCK ENGINE TECHNICIAN 11/10/2023 6:41 AM TRUCK ENGINE TECHNICIAN Erik Chairez MD CHEMISTRY ORDERABLES Final Resul t [facility] LABORATORY [facility] CLIA# [id number] [place] [address] documented in this encounter Visit Diagnoses Not on filedocumented in this encounter Additional Health Concerns Infection Onset Date Last Indicated Resolved Time CRE-CP Comment:10/09/23 Klebsiella pneumoniae, Sputum 10/09/2023 10/09/2023 05/28/2024 2:37 PM C DT Multi Drug Resistant Organis m (MDRO) Comment:10/09/23 Klebsiella pneumoniae, CRE-CP organism, Sputum 10/09/2023 10/09/2023 SENIOR NETWORK SECURITY ENGINEER-CP Comment:10/09/23 Klebsiella pneumoniae, Sputum 10/09/2023 05/28/2024 documented as of this encounter
--- OUTSIDE RECORDS SUMMARY | 2025-03-09 13:25 | XMS_ITS | Encounter Summary ---
Author Organization [facility] Address [address] [place] [address] Care Team Providers Care Library Technology Instructor Name Role Phone Unavailable Primary Care Provider Unavailabl e Encounter Details Date Type Department Care Team (Late st Contact Info) Description 10/20/2023 Lab Requisition [facility] Laboratory Services [address] [place] [address] [place] [address] [place] [address] Social History Tobacco Use Types Packs/Day Years Used Date Smoking Tobacco: Never Assessed Sex and Gender Information Value Date Recorded Sex Assigned at Not on file Legal Sex Male 9:18 AM COLLET MAKING MACHINE OPERATOR Gender Identity Not on file Sexual Orientation Not on file documented as of this encounter Plan of Treatment Not on file documented as of this encounter Procedures Procedure Name Priority Date/Time Associated Diagnosis Comments CBC WITH DIFFERENTIAL Routine 10/20/2023 2:20 AM COLLET MAKING MACHINE OPERATOR BASIC METABOLIC PANEL Routine 10/20/2023 2:20 AM COLLET MAKING MACHINE OPERATOR documented in this encounter Results * (ABNORMAL) CBC WITH DIFFERENTIAL (10/20/2023 2:20 AM COLLET MAKING MACHINE OPERATOR) WBC 8.3 4.5 - 10.5 K/uL 10/20/2023 5:25 AM COLLET MAKING MACHINE OPERATOR [facility] LABORATORY SERVICES - [facility] RBC 3.82(L) 4.50 - 5.40 M/uL 10/20/2023 5:25 AM COLLET MAKING MACHINE OPERATOR [facility] LABORATORY [facility] HEMOGLOBIN 11.2(L) 13.6 - 16.5 g/dL 10/20/2023 5:25 AM COLLET MAKING MACHINE OPERATOR [facility] LABORATORY SERVICES - [facility] HEMATOCRIT 35.0(L) 40.0 - 48.0 % 10/20/2023 5:25 AM COLLET MAKING MACHINE OPERATOR [facility] LABORATORY SERVICES [facility] MCV 91.6 82.0 - 99.0 fL 10/20/2023 5:25 AM COLLET MAKING MACHINE OPERATOR [facility] LABORATORY SERVICES - [facility] MCH 29.4 27.8 - 34.5 pg 10/20/2023 5:25 AM COLLET MAKING MACHINE OPERATOR [facility] LABORATORY SERVICES [facility] MCHC 32.1(L) 32.5 - 35.5 g/dL 10/20/2023 5:25 AM COLLET MAKING MACHINE OPERATOR [facility] LABORATORY SERVICES - [facility] RDW 17.4(H) 11.5 - 14.5 % 10/20/2023 5:25 AM COLLET MAKING MACHINE OPERATOR [facility] - [facility] PLATELETS 255 160 - 420 K/uL 10/20/2023 5:25 AM COLLET MAKING MACHINE OPERATOR [facility] MPV 9.4 8.7 - 12.7 fL 10/20/2023 5:25 AM COLLET MAKING MACHINE OPERATOR [facility] - [facility] NEUTROPHILS 60 % 10/20/2023 5:25 AM COLLET MAKING MACHINE OPERATOR [facility] - [facility] LYMPHOCYTES 23 % 10/20/2023 5:25 AM COLLET MAKING MACHINE OPERATOR [employer] LABORATORY SERVICES [facility] MONOCYTES 6 % 10/20/2023 5:25 AM COLLET MAKING MACHINE OPERATOR [facility] EOSINOPHILS 11 % 10/20/2023 5:25 AM COLLET MAKING MACHINE OPERATOR [facility] BASOPHILS 1 % 10/20/2023 5:25 AM COLLET MAKING MACHINE OPERATOR [facility] NEUTROPHIL ABSOLUTE 4.90 1.90 - 7.00 K/uL 10/20/2023 5:25 AM COLLET MAKING MACHINE OPERATOR [facility] LYMPHOCYTE ABSOLUTE 1.90 0.70 - 4.50 K/uL 10/20/2023 5:25 AM COLLET MAKING MACHINE OPERATOR [employer] LABORATORY SERVICES [facility] MONOCYTE ABSOLUTE 0.50 0.10 - 1.30 K/uL 10/20/2023 5:25 AM COLLET MAKING MACHINE OPERATOR [facility] EOSINOPHIL ABSOLUTE 0.90(H) 0.00 - 0.70 K/uL 10/20/2023 5:25 AM COLLET MAKING MACHINE OPERATOR [facility] BASOPHILS ABSOLUTE 0.00 0.00 - 0.20 K/uL 10/20/2023 5:25 AM [facility] Blood 10/20/2023 2:20 AM COLLET MAKING MACHINE OPERATOR 10/20/2023 5:15 AM COLLET MAKING MACHINE OPERATOR Erik Chairez MD HEMATOLOGY ORDERABLES Final Resu lt [facility] CLIA# [id number] [place] [address] * (ABNORMAL) BASIC METABOLIC PANEL (10/20/2023 2:20 AM COLLET MAKING MACHINE OPERATOR) SODIUM 140 136 - 145 mmol/L 10/20/2023 5:53 AM [facility] POTASSIUM 3.8 3.4 - 5.1 mmol/L 10/20/2023 5:53 AM [facility] CHLORIDE 101 98 - 107 mmol/L 10/20/2023 5:53 AM [facility] CO2 26 22 - 29 mmol/L 10/20/2023 5:53 AM [facility] CALCIUM 9.6 8.6 - 10.4 mg/dL 10/20/2023 5:53 AM [facility] BUN 30(H) 6 - 20 mg/dL 10/20/2023 5:53 AM [facility] CREATININE 0.89 0.67 - 1.17 mg/dL 10/20/2023 5:53 AM [facility] Comment:The GFR result is no t clinically significant on patients <18 or >70 years of age. GLUCOSE 110(H) 74 - 99 mg/dL 10/20/2023 5:53 AM [facility] GFR >60 mL/min/1.7 3 sq meter 10/20/2023 5:53 AM [facility] Comment:eGFR calculated with 2020 CKD-EPI equation. Vegetarian diet, extremely high or low muscle mass, and may affect results. Cystatin C with Glomerular Filtration Rate is a suitable alternative for these patients. ANION GAP 13 8 - 16 mmol/L 10/20/2023 5:53 AM COLLET MAKING MACHINE OPERATOR [facility] LABORATORY SERVICES [facility] Blood 10/20/2023 2:20 AM COLLET MAKING MACHINE OPERATOR 10/20/2023 5:15 AM COLLET MAKING MACHINE OPERATOR Erik Chairez MD CHEMISTRY ORDERABLES Final Resul t [facility] LABORATORY [facility] CLIA# [id number] [place] [address] documented in this encounter Visit Diagnoses Not on filedocumented in this encounter Additional Health Concerns Infection Onset Date Last Indicated Resolved Time 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
--- OUTSIDE RECORDS SUMMARY | 2025-03-09 13:25 | XMS_ITS | Encounter Summary ---
Author Organization [facility] Address [address] [place] [address] Care Team Providers Care Cigar Machine Feeder Name Role Phone Unavailable Primary Care Provider Unavailabl e Encounter Details Date Type Department Care Team (Late st Contact Info) Description 10/12/2023 Lab Requisition [facility] Laboratory Services [address] [place] [address] [place] [address] [place] [address] Social History Tobacco Use Types Packs/Day Years Used Date Smoking Tobacco: Never Assessed Sex and Gender Information Value Date Recorded Sex Assigned at Not on file Legal Sex Male 9:18 AM DRESSED POULTRY GRADER Gender Identity Not on file Sexual Orientation Not on file documented as of this encounter Plan of Treatment Not on file documented as of this encounter Procedures Procedure Name Priority Date/Time Associated Diagnosis Comments MAGNESIUM LEVEL Routine 10/12/2023 4:00 AM DRESSED POULTRY GRADER RENAL FUNCTION PANEL Routine 10/12/2023 4:00 AM DRESSED POULTRY GRADER documented in this encounter Results * MAGNESIUM LEVEL (10/12/2023 4:00 AM DRESSED POULTRY GRADER) MAGNESIUM 2.3 1.6 - 2.6 mg/dL 10/12/2023 6:02 AM DRESSED POULTRY GRADER [facility] [employer] [facility] Blood Collection / Unknown 10/12/2023 4:00 AM DRESSED POULTRY GRADER 10/12/2023 5:07 AM DRESSED POULTRY GRADER us Erik Chairez MD CHEMISTRY ORDERABLES Final Resul t [id number] [address] [place] [address] * (ABNORMAL) RENAL FUNCTION PANEL (10/12/2023 4:00 AM DRESSED POULTRY GRADER) SODIUM 139 136 - 145 mmol/L 10/12/2023 6:02 AM [facility] POTASSIUM 4.2 3.4 - 5.1 mmol/L 10/12/2023 6:02 AM [facility] CHLORIDE 102 98 - 107 mmol/L 10/12/2023 6:02 AM [facility] CO2 24 22 - 29 mmol/L 10/12/2023 6:02 AM [facility] CALCIUM 9.5 8.6 - 10.4 mg/dL 10/12/2023 6:02 AM [facility] BUN 43(H) 6 - 20 mg/dL 10/12/2023 6:02 AM [facility] CREATININE 1.20(H) 0.67 - 1.17 mg/dL 10/12/2023 6:02 AM [facility] Comment:The GFR result is no t clinically significant on patients <18 or >70 years of age. GLUCOSE 94 74 - 99 mg/dL 10/12/2023 6:02 AM [facility] ALBUMIN 3.4(L) 3.5 - 5.2 g/dL 10/12/2023 6:02 AM [facility] PHOSPHORUS 4.2 2.5 - 4.5 mg/dL 10/12/2023 6:02 AM [facility] GFR 60 mL/min/1.7 3 sq meter 10/12/2023 6:02 AM [facility] Comment:eGFR calculated with 2020 CKD-EPI equation. Vegetarian diet, extremely high or low muscle mass, and may affect results. Cystatin C with Glomerular Filtration Rate is a suitable alternative for these patients. ANION GAP 13 8 - 16 mmol/L 10/12/2023 6:02 AM [facility] Blood Collection / Unknown 10/12/2023 4:00 AM DRESSED POULTRY GRADER 10/12/2023 5:07 AM DRESSED POULTRY GRADER Erik Chairez MD CHEMISTRY ORDERABLES Final Resul t [facility] LABOR[facility]ORY [facility] CLIA# [id number] [address] [place] [address] documented in this encounter Visit Diagnoses Not on filedocumented in this encounter Additional Health Concerns Infection Onset Date Last Indicated Resolved Time CRE-CP Comment:10/09/23 Klebsiella pneumoniae, Sputum 10/09/2023 10/09/2023 05/28/2024 2:37 PM C 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
--- OUTSIDE RECORDS SUMMARY | 2025-03-09 13:25 | XMS_ITS | Encounter Summary ---
Author Organization [facility] Address [address] [facility] [place] [address] Care Team Providers Care Radiation Oncology Nurse Name Role Phone Demond Stark MD Primary Care Provider [phone] Encounter Details Date Type Department Care Team (Late Contact Info) Description 06/28/2023 Lab Requisition [facility] [address] [facility] [place] [address] Jaxon Anaya MD [address] [place], [place] [id number] Social History Tobacco Use Types Packs/Day Years Used Date Smoking Tobacco: Former Cigarettes Q uit: 09/23/1969 Smokeless Tobacco: Never Alcohol Use Standard Drinks/Week Comments Yes 0 (1 standard drink = 0.6 oz pur e alcohol) Sex and Gender Information Value Date Recorded Sex Assigned at Not on file Legal Sex Male 5:43 PM DATA SECURITY ANALYST Gender Identity Not on file Sexual Orientation Not on file documented as of this encounter Plan of Treatment Upcoming Encounters Date Type Department Care Team (Late Contact Info) Description 04/07/2025 2:00 PM CDT Office Visit [facility] - Neurology [address] [facility], [place] [address] Venus Mckinley APRN-RISSA [address] [place] [address] 04/29/2025 10:00 AM CDT Appointment [facility] DIAGNOSTIC RAD [address] [place] [address] Callie Mendoza DO [address] [facility] 3RD FLOOR DOOR 1 [place] [address] 02/04/2026 9:00 AM CDT Office Visit [facility] Physician Group - [address] [facility], [place] [address] Callie Mendoza DO [address] [facility] 3RD FLOOR DO[address] 1 [place] [address] documented as of this encounter Procedures Procedure Name Priority Date/Time Associated Diagnosis Comments DERMATOPATHOLOGY Routine 06/26/2023 12:0 0 AM CDT documented in this encounter Results * DERMATOPATHOLOGY (06/26/2023 12:00 AM CDT) Case Report Dermatopathology Report Case: [id number] Authorizing Provider: Jaxon Anaya MD Collected: 06/26/2023 12:00 AM Ordering Location: [facility] DermPath Lab Received: 06/28/2023 09:48 AM [...] back.The specimen consists of an ellipse measuring [id number] mm and is oriented with the suture/notch [...] determined by the Dermatopathology Laboratory at [facility], directed by Dr. Georgina Young. These tests need not be, and therefore are not, approved by the [place] Food and Drug Administration. The tests are used for clinical purposes. Billing Codes Specimen Charges Stain Charges 01789 1 3 4:58 PM CDT DERMATOPATHOLOGY LABORATORY Embedded Images 3 4:58 PM CDT DERMATOPATHOLOGY LABORATORY Pathology/Cytolog y TISSUE SPECIMEN FROM SKIN / Unknown 06/26/2023 06/28/2023 9:48 AM CDT Jaxon Anaya MD LAB - PATHOLOGY/CYTOLOGY ORD ERABLES Final Result DERMATOPATHOLOGY LABORATORY [facility] - Department of Dermatology [facility] Medicine [address] [place] [address], [address] Floor [address] [phone] documented in this encounter Visit Diagnoses Not on filedocumented in this encounter Care Teams Radiation Oncology Nurse Relationship Specialty Start Date End Date Demond Stark MD [address] [place] [address] PCP - General 10/03/15 documented as of this encounter
--- OUTSIDE RECORDS SUMMARY | 2025-03-09 13:25 | XMS_ITS | Encounter Summary ---
Author Organization [facility] Address [address] [place] [address] Care Team Providers Care Auto Parts Handler Name Role Phone Unavailable Primary Care Provider Unavailabl e Encounter Details Date Type Department Care Team (Late st Contact Info) Description 10/10/2023 Lab Requisition [facility] Laboratory Services [address] [place] [address] [place] [address] [place] [address] Social History Tobacco Use Types Packs/Day Years Used Date Smoking Tobacco: Never Assessed Sex and Gender Information Value Date Recorded Sex Assigned at Not on file Legal Sex Male 9:18 AM LEARNING PROGRAM MANAGER Gender Identity Not on file Sexual Orientation Not on file documented as of this encounter Plan of Treatment Not on file documented as of this encounter Procedures Procedure Name Priority Date/Time Associated Diagnosis Comments CBC WITH DIFFERENTIAL Routine 10/10/2023 3:30 AM LEARNING PROGRAM MANAGER PTT Routine 10/10/2023 3:30 AM LEARNING PROGRAM MANAGER PROTIME-INR Routine 10/10/2023 3:30 AM LEARNING PROGRAM MANAGER PREALBUMIN Routine 10/10/2023 3:30 AM LEARNING PROGRAM MANAGER COMPREHENSIVE METABOLIC PANEL Routine 10/10/2023 3:30 AM LEARNING PROGRAM MANAGER documented in this encounter Results * PTT (10/10/2023 3:30 AM LEARNING PROGRAM MANAGER) PTT 23.4 23.1 - 37.1 seconds 10/10/2023 10:14 AM LEARNING PROGRAM MANAGER [facility] LABORATORY SERVICES [facility] Blood Collection / Unknown 10/10/2023 3:30 AM LEARNING PROGRAM MANAGER 10/10/2023 9:51 AM LEARNING PROGRAM MANAGER Erik Chairez MD HEMATOLOGY ORDERABLES Final Resu lt [facility] CLIA# [id number] [address] [place] [address] * (ABNORMAL) PROTIME-INR (10/10/2023 3:30 AM LEARNING PROGRAM MANAGER) PROTIME 15.0(H) 11.5 - 14.7 Seconds 10/10/2023 10:14 AM LEARNING PROGRAM MANAGER [facility] INR 1.2(H) 0.9 - 1.1 10/10/2023 10:14 AM LEARNING PROGRAM MANAGER [facility] Blood Collection / Unknown 10/10/2023 3:30 AM LEARNING PROGRAM MANAGER 10/10/2023 9:51 AM LEARNING PROGRAM MANAGER Erik Chairez MD HEMATOLOGY ORDERABLES Final Resu lt [facility] [employer] [facility] CLIA# [id number] [place] [address] * PREALBUMIN (10/10/2023 3:30 AM LEARNING PROGRAM MANAGER) PREALBUMIN 23 20 - 40 mg/dL 10/10/2023 2:24 PM LEARNING PROGRAM MANAGER [facility] Blood Collection / Unknown 10/10/2023 3:30 AM LEARNING PROGRAM MANAGER 10/10/2023 9:51 AM LEARNING PROGRAM MANAGER Erik Chairez MD CHEMISTRY ORDERABLES Final Resul t [facility] [employer] [facility] CLIA# [id number] [address] [place] [address] * (ABNORMAL) CBC WITH DIFFERENTIAL (10/10/2023 3:30 AM LEARNING PROGRAM MANAGER) [facility] WBC 10.1 4.5 - 10.5 K/uL 10/10/2023 11:06 AM [facility] RBC 3.85(L) 4.50 - 5.40 M/uL 10/10/2023 11:06 AM [facility] HEMOGLOBIN 11.6(L) 13.6 - 16.5 g/dL 10/10/2023 11:[address] [facility] [employer] [facility] HEMATOCRIT 36.6(L) 40.0 - 48.0 % 10/10/2023 11:[address] [facility] [employer] [facility] MCV 95.2 82.0 - 99.0 fL 10/10/2023 11:[address] [facility] [employer] [facility] MCH 30.1 27.8 - 34.5 pg 10/10/2023 11:[address] [facility] [employer] [facility] MCHC 31.6(L) 32.5 - 35.5 g/dL 10/10/2023 11:[address] [facility] [employer] [facility] RDW 19.2(H) 11.5 - 14.5 % 10/10/2023 11:[address] [facility] [employer] [facility] PLATELETS 250 160 - 420 K/uL 10/10/2023 11:[address] [facility] [employer] [facility] MPV 9.8 8.7 - 12.7 fL 10/10/2023 11:[address] [facility] NEUTROPHILS 72 % 10/10/2023 11:[address] [facility] LYMPHOCYTES 15 % 10/10/2023 11:06 AM LEARNING PROGRAM MANAGER [facility] MONOCYTES 7 % 10/10/2023 11:06 AM LEARNING PROGRAM MANAGER [facility] EOSINOPHILS 5 % 10/10/2023 11:06 AM LEARNING PROGRAM MANAGER [facility] BASOPHILS 0 % 10/10/2023 11:[address] [facility] NEUTROPHIL ABSOLUTE 7.20(H) 1.90 - 7.00 K/uL 10/10/2023 11:[address] [facility] [employer] [facility] LYMPHOCYTE ABSOLUTE 1.50 0.70 - 4.50 K/uL 10/10/2023 11:06 AM LEARNING PROGRAM MANAGER [facility] MONOCYTE ABSOLUTE 0.70 0.10 - 1.30 K/uL 10/10/2023 11:06 AM LEARNING PROGRAM MANAGER [facility] EOSINOPHIL ABSOLUTE 0.50 0.00 - 0.70 K/uL 10/10/2023 11:06 AM LEARNING PROGRAM MANAGER [facility] BASOPHILS ABSOLUTE 0.00 0.00 - 0.20 K/uL 10/10/2023 11:06 AM LEARNING PROGRAM MANAGER [facility] [facility] Blood Collection / Unknown 10/10/2023 3:30 AM LEARNING PROGRAM MANAGER 10/10/2023 9:51 AM LEARNING PROGRAM MANAGER us Erik Chairez MD HEMATOLOGY ORDERABLES Final Resu lt [facility] CLIA# [id number] [address] [place] [address] * (ABNORMAL) COMPREHENSIVE METABOLIC PANEL (10/10/2023 3:30 AM LEARNING PROGRAM MANAGER) SODIUM 142 136 - 145 mmol/L 10/10/2023 10:[address] [facility] [employer] [facility] POTASSIUM 4.1 3.4 - 5.1 mmol/L 10/10/2023 10:[address] [facility] CHLORIDE 104 98 - 107 mmol/L 10/10/2023 10:[address] [facility] CO2 23 22 - 29 mmol/L 10/10/2023 10:[address] [facility] CALCIUM 9.4 8.6 - 10.4 mg/dL 10/10/2023 10:[address] [facility] BUN 34(H) 6 - 20 mg/dL 10/10/2023 10:[address] [facility] CREATININE 1.24(H) 0.67 - 1.17 mg/dL 10/10/2023 10:[address] [facility] Comment:The GFR result is no t clinically significant on patients <18 or >70 years of age. GLUCOSE 91 74 - 99 mg/dL 10/10/2023 10:49 AM [facility] TOTAL PROTEIN 7.4 6.3 - 8.7 g/dL 10/10/2023 10:49 AM [facility] ALBUMIN 3.6 3.5 - 5.2 g/dL 10/10/2023 10:49 AM [facility] BILIRUBIN TOTAL 0.6 0.2 - 1.1 mg/dL 10/10/2023 10:49 AM [facility] ALKALINE PHOSPHATASE 84 40 - 150 U/L 10/10/2023 10:49 AM [facility] AST 15 0 - 41 U/L 10/10/2023 10:49 AM [facility] ALT 13 0 - 41 U/L 10/10/2023 10:49 AM [facility] GFR 58 mL/min/1.7 3 sq meter 10/10/2023 10:49 AM [facility] Comment:eGFR calculated with 2020 CKD-EPI equation. Vegetarian diet, extremely high or low muscle mass, and may affect results. Cystatin C with Glomerular Filtration Rate is a suitable alternative for these patients. ANION GAP 15 8 - 16 mmol/L 10/10/2023 10:49 AM [facility] Blood Collection / Unknown 10/10/2023 3:30 AM LEARNING PROGRAM MANAGER 10/10/2023 9:51 AM LEARNING PROGRAM MANAGER us Erik Chairez MD CHEMISTRY ORDERABLES Final Resul t [facility] CLIA# [id number] [address] [place] [address] documented in this encounter Visit Diagnoses Not on filedocumented in this encounter Additional Health Concerns Infection Onset Date Last Indicated Resolved Time CRE-CP Comment:10/09/23 Klebsiella pneumoniae, Sputum 10/09/2023 10/09/2023 05/28/2024 2:37 PM C DT 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
--- OUTSIDE RECORDS SUMMARY | 2025-03-09 13:25 | XMS_ITS | Clinical Summary ---
Author Organization [facility] Address [address] [place] [address] Phone Care Team Providers Care Ginger Farmer Name Role Phone Unavailable Primary Care Provider Unavailabl e Social History Tobacco Use Types Packs/Day Years Used Date Smoking Tobacco: Never Assessed Sex and Gender Information Value Date Recorded Sex Assigned at Not on file Legal Sex Male 9:18 AM ACID CORRECTION HAND Gender Identity Not on file Sexual [...] Klebsiella pneumoniae, CRE-CP organism, Sputum 10/09/2023 10/09/2023 SWING TYPE LATHE OPERATOR-CP Comment:10/09/23 Klebsiella pneumoniae, Sputum 10/09/2023 05/28/[address] [place] [address]
--- OUTSIDE RECORDS SUMMARY | 2025-03-09 13:25 | XMS_ITS | Encounter Summary ---
Author Organization [facility] Address [address] [facility] [place] [address] Care Team Providers Care Dedicated Regional Driver Name Role Phone Demond Stark MD Primary Care Provider [phone] Encounter Details Date Type Department Care Team (Late Contact Info) Description 06/13/2023 Lab Requisition [facility] Lab [address] 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 Gender Identity Not on file Sexual Orientation Not on file documented as of this encounter Plan of Treatment Upcoming Encounters Date Type Department Care Team (Late Contact Info) Description 04/07/2025 2:00 PM CDT Office Visit [facility] - Neurology [address] [facility], [place] [address] Venus Mckinley APRN-RISSA [address] [place] [address] 04/29/2025 10:00 AM CDT Appointment [facility] DIAGNOSTIC RAD [address] [place] [phone] Callie Mendoza DO [address] [facility] [address]RD FLOOR DO[address] 1 [place] [address] 02/04/2026 9:00 AM CDT Office Visit [facility] Physician Group - [address] [facility], [place] [phone] Callie Mendoza DO [address] [facility] [address]RD FLO[address] 1 [place] [address] documented as of this encounter Procedures Procedure Name Priority Date/Time Associated Diagnosis Comments DERMATOPATHOLOGY Routine 06/12/2023 12:0 0 AM CDT documented in this encounter Results * DERMATOPATHOLOGY (06/12/2023 12:00 AM CDT) Case Report Dermatopathology Report Case: [id number] Authorizing Provider: Jaxon Anaya MD Collected: 06/12/2023 12:00 AM Ordering Location: [facility] DermPath Lab Received: 06/13/2023 01:28 PM [...] specimen consists of a shave biopsy measuring 74u04v2 mm. Jar 0. 3 3:42 PM CDT [...] characteristic determined by the Dermatopathology Laboratory at [facility], directed by Dr. Georgina Young. These tests need not be, and therefore are not, approved by the [place] Food and Drug Administration. The tests are used for clinical purposes. Billing Codes Specimen Charges Stain Charges 90347 1 73781 1 3 3:42 PM CDT DERMATOPATHOLOGY LABORATORY Embedded Images 3 3:42 PM CDT DERMATOPATHOLOGY LABORATORY Pathology/Cytolog y TISSUE SPECIMEN FROM SKIN / Unknown 06/12/2023 06/13/2023 1:28 PM CDT Jaxon Anaya MD LAB - PATHOLOGY/CYTOLOGY ORD ERABLES Final Result DERMATOPATHOLOGY LABORATORY [facility] Department of Dermatology [address], [address] [phone] documented in this encounter Visit Diagnoses Not on filedocumented in this encounter Care Teams Dedicated Regional Driver Relationship Specialty Start Date End Date Demond Stark MD [address] [place] [address] PCP - General 10/03/15 documented as of this encounter
--- OUTSIDE RECORDS SUMMARY | 2025-03-09 13:25 | XMS_ITS | Referral Summary ---
Author Organization [facility] Medical Office Building B Address [address] [place] [address] Care Team Providers Care Client Service Associate Name Role Phone Demond Stark MD Primary Care Provider [phone] Encounters Date Type Department Care Team Description 03/01/2025 Telephone [facility] Medical [facility] Cardiology [address] [place] [address] [address] [place] [phone] Mando Dumont MD 01/19/2025 Telephone [facility] Cardiology [address] [place] [address] [address] [place] [phone] Mando Dumont MD 12/21/2024 Results Follow-Up [facility] Cardiology [address] [place] [address] [place] [phone] Mando Dumont MD Transthoracic Echo (TTE) Complete W Doppler/CF 12/17/2024 2:00 PM CDT Ancillary Procedure [facility] Medical [facility] Cardiology [address] [place] [address] [address] [place] [address] Persistent atrial fibrillation (HCC) from Last 3 Months Allergies Active Allergy Reactions Criticality Noted Date Comments Diphenhydramine Hallucinations Medium 11/27/2023 Was not able to sleep and made him more anxious Lisinopril Cough Low Reaction: Cough, Pravastatin Muscle pain Medium Reaction: Muscular Pain, Quetiapine Other (See comments) Low 06/05/2024 Hallucinations, insomnia Simvastatin Muscle pain Medium Reaction: Muscular Pain, Wryqpun-Vxk-Vxx Reductase Inhibitors Muscle pain,Other (See comments) Medium 10/03/2015 Pt reports leg weakness/heavine ss when taking zocor. Medications levothyroxine (SYNTHROID) 112 mcg tablet Take 1 tablet (112 mcg total) by mouth business continuity strategy director before breakfast Active aspirin 81 mg tablet [...] 08/31/2024 Assessment & Plan (10/05/2024 10:54 AM SENIOR FUND ACCOUNTANT): Avoid ear cleaning techniques Avoid water to ears Follow up in 9 months for right ear tube check, earlier with ear drainage Assessment & Plan (08/31/2024 11:40 AM SENIOR FUND ACCOUNTANT): Right myringotomy with T-tube placement Risks and [...] 07/09/2024 Assessment & Plan (08/31/2024 11:39 AM SENIOR FUND ACCOUNTANT): Right myringotomy with T-tube placement Risks and [...] 08/07/2017 Assessment & Plan (08/07/2017 6:01 PM SENIOR FUND ACCOUNTANT): Has had elevated LFTs and a fatty liver. Bradycardia 08/07/2017 Assessment & Plan (08/07/2017 5:58 PM SENIOR FUND ACCOUNTANT): Asymptomatic bradycardia, on low-dose metoprolol which may eventually need to be reduced or discontinued. Traumatic subdural hematoma of neuraxis 10/15/19 17 Overview (12/28/2016): Traumatic subdural hematoma without loss of consciousness, sequela Statin intolerance 10/15/2016 Overview (12/28/2016): Statin intolerance Essential hypertension 07/20/2013 Overview (12/28/2016): Hypertension Assessment & Plan (08/07/2017 5:57 PM SENIOR FUND ACCOUNTANT): Hypertension is not under good control; reviewing [...] HYPERLIPIDEMIA Assessment & Plan (08/07/2017 6:03 PM SENIOR FUND ACCOUNTANT): Has refued further attempts at statin therapy. History of coronary artery bypass surgery 2009 Overview (12/26/2016): AORTOCORONARY BYPASS Coronary arteriosclerosis in [place] artery 12/20 Overview (08/07/2017): CRNRY ATHRSCL NATVE VSSL 2009: Non STEMI and CABG x3 (HOBSON to the LAD, sequential RA to OM and D1) Assessment & Plan (08/07/2017 6:00 PM SENIOR FUND ACCOUNTANT): 2009: Non STEMI and CABG x3 (HOBSON [...] 03/04/2018 Assessment & Plan (08/07/2017 5:58 PM SENIOR FUND ACCOUNTANT): Patient is going to have knee surgery [...] on file Legal Sex Male 8:49 AM SENIOR FUND ACCOUNTANT Gender Identity Not on file Sexual Orientation Not on file Last Filed Vital Signs Vital Sign Reading Time Taken Comments Blood Pressure 160/88 09/22/2024 1:04 PM SENIOR FUND ACCOUNTANT Pulse 83 09/22/2024 1:04 PM SENIOR FUND ACCOUNTANT Temperature 36.3 C (97.4 F) 09/22/2024 1:04 PM SENIOR FUND ACCOUNTANT Respiratory Rate 18 09/22/2024 1:04 PM SENIOR FUND ACCOUNTANT Oxygen Saturation 97% 09/22/2024 1:04 PM SENIOR FUND ACCOUNTANT Inhaled Oxygen Concentration - - Weight 97.5 kg (214 lb 15.2 oz) 09/22/2024 9:41 AM SENIOR FUND ACCOUNTANT Height 182.9 cm (6') 09/22/2024 9:41 AM SENIOR FUND ACCOUNTANT Body Mass Index 29.15 09/22/2024 9:41 AM SENIOR FUND ACCOUNTANT Plan of Treatment Not on file Medical Devices Implanted Type Area Services Program Manager Device Identifier Shelf Expiration Date Model / Serial / Lot [employer] 1.32mm 4.8mm Modify Ear T Tube Ventilation Ultrasil Sterile Blue [id number] - [id number] Implanted:Qty: 1 on 09/22/2024 by Laura Oakes DO at [facility] Right: Ear [employer] 07/13/2034 [id number] / / [id number] Procedures Procedure Name Priority Date/Time Associated Diagnosis Comments TRANSTHORACIC ECHO (TTE) COMPLETE W DOPPLER/CF WO CONTRAST Routine 12/17/2024 2:57 PM CDT Persistent atrial fibrillation (HCC) from Last 3 Months Results * TRANSTHORACIC ECHO (TTE) COMPLETE W DOPPLER/CF WO CONTRAST (12/17/2024 2:57 PM CDT) LV EF 45-50 % CONS SCIMAGE Anatomical Region Laterality Modality Ultrasound 12/17/2024 2:11 PM CDT Narrative 12/17/2024 4:20 PM CDT [facility] Medical Group Cardiology [address], [place] [address] [address], [address], [place] [address] P:[phone] P:[phone] Echocardiographic Report Patient Name: OMAR KIMBALL L : 1940 Study Date: 12/17/2024 2:11:41 PM Gender: M Tech: [facility] Location: [place] Ref Provider: MANDO DUMONT Height(Cm): 183 BSA: [...] Interpretation Site: Exam was interpreted at [facility]. Left Ventricle: Normal left ventricular size. Mild [...] Procedure Note Koki Jimenez MD - 12/17/2024 [facility] Medical Group Cardiology [address] [facility] [address], [place] [address] [address] [facility] [address], [place] [address] P:[phone] P:[phone] Echocardiographic Report Patient Name: OMAR KIMBALL L : 1940 Study Date: 12/17/2024 2:11:41 PM Gender: M Tech: [facility] Location: [facility] Provider: MANDO DUMONT Height(Cm): 183 BSA: [...] Interpretation Site: Exam was interpreted at [facility]. Left Ventricle: Normal left ventricular size. Mild [...] from Last 3 Months Insurance MEDICARE MEDICARE [facility] MEDICARE SUPPLEMENT Member Subscriber Plan / Payer (Ef fective 2006-Present) Name:Omar Kimball Taylor Relation to Subscriber:Self Name:Omar Kimball Taylor Payer ID:[id number] Type:COMMERCIAL Address: [address] [place] [id number] Care Teams Client Service Associate Relationship Specialty Start Date End Date Demond Stark MD PCP - General 07/23/11
--- OUTSIDE RECORDS SUMMARY | 2025-03-09 13:25 | XMS_ITS | Encounter Summary ---
Author Organization [facility] Address [address] [place] [address] Care Team Providers Care Monorail Helper Name Role Phone Unavailable Primary Care Provider Unavailabl e Encounter Details Date Type Department Care Team (Late st Contact Info) Description 11/07/2023 Lab Requisition [facility] Laboratory Services [address] [place] [address] [place] [address] [place] [address] Social History Tobacco Use Types Packs/Day Years Used Date Smoking Tobacco: Never Assessed Sex and Gender Information Value Date Recorded Sex Assigned at Not on file Legal Sex Male 9:18 AM CABLE RESPOOLER Gender Identity Not on file Sexual Orientation Not on file documented as of this encounter Plan of Treatment Not on file documented as of this encounter Procedures Procedure Name Priority Date/Time Associated Diagnosis Comments CBC WITH DIFFERENTIAL Routine 11/07/2023 4:30 AM CABLE RESPOOLER BASIC METABOLIC PANEL Routine 11/07/2023 4:30 AM CABLE RESPOOLER documented in this encounter Results * (ABNORMAL) CBC WITH DIFFERENTIAL (11/07/2023 4:30 AM CABLE RESPOOLER) WBC 9.4 4.5 - 10.5 K/uL 11/07/2023 8:10 AM CABLE RESPOOLER [facility] LABORATORY SERVICES - [facility] RBC 4.06(L) 4.50 - 5.40 M/uL 11/07/2023 8:10 AM CABLE RESPOOLER [facility] LABORATORY [facility] - [facility] HEMOGLOBIN 11.9(L) 13.6 - 16.5 g/dL 11/07/2023 8:10 AM CABLE RESPOOLER [facility] LABORATORY [facility] - [facility] HEMATOCRIT 37.1(L) 40.0 - 48.0 % 11/07/2023 8:10 AM CABLE RESPOOLER [facility] LABORATORY SERVICES [facility] MCV 91.5 82.0 - 99.0 fL 11/07/2023 8:10 AM CABLE RESPOOLER [facility] LABORATORY SERVICES - [facility] MCH 29.4 27.8 - 34.5 pg 11/07/2023 8:10 AM CABLE RESPOOLER [facility] LABORATORY SERVICES [facility] MCHC 32.1(L) 32.5 - 35.5 g/dL 11/07/2023 8:10 AM CABLE RESPOOLER [facility] LABORATORY SERVICES [facility] RDW 16.9(H) 11.5 - 14.5 % 11/07/2023 8:10 AM CABLE RESPOOLER [facility] LABORATORY SERVICES [facility] PLATELETS 270 160 - 420 K/uL 11/07/2023 8:10 AM CABLE RESPOOLER [facility] LABORATORY SERVICES [facility] MPV 10.0 8.7 - 12.7 fL 11/07/2023 8:10 AM CABLE RESPOOLER [facility] LABORATORY SERVICES [facility] NEUTROPHILS 61 % 11/07/2023 8:10 AM CABLE RESPOOLER [facility] LABORATORY SERVICES [facility] LYMPHOCYTES 21 % 11/07/2023 8:10 AM CABLE RESPOOLER [facility] SERVICES [facility] MONOCYTES 6 % 11/07/2023 8:10 AM CABLE RESPOOLER [facility] LAB[facility] SERVICES [facility] EOSINOPHILS 11 % 11/07/2023 8:10 AM CABLE RESPOOLER [facility] LAB[facility]ORY SERVICES [facility] BASOPHILS 1 % 11/07/2023 8:10 AM CABLE RESPOOLER [facility] LABORATORY SERVICES [facility] NEUTROPHIL ABSOLUTE 5.70 1.90 - 7.00 K/uL 11/07/2023 8:10 AM CABLE RESPOOLER [facility] LABORATORY SERVICES [facility] LYMPHOCYTE ABSOLUTE 2.00 0.70 - 4.50 K/uL 11/07/2023 8:10 AM CABLE RESPOOLER [facility] LABORATORY SERVICES [facility] MONOCYTE ABSOLUTE 0.60 0.10 - 1.30 K/uL 11/07/2023 8:10 AM CABLE RESPOOLER [facility] LABORATORY SERVICES [facility] EOSINOPHIL ABSOLUTE 1.00(H) 0.00 - 0.70 K/uL 11/07/2023 8:10 AM CABLE RESPOOLER [facility] LABORATORY SERVICES [facility] BASOPHILS ABSOLUTE 0.10 0.00 - 0.20 K/uL 11/07/2023 8:10 AM [facility] Blood 11/07/2023 4:30 AM CABLE RESPOOLER 11/07/2023 8:06 AM CABLE RESPOOLER us Erik Chairez MD HEMATOLOGY ORDERABLES Final Resu lt [facility] CLIA# [id number] [place] [address] * (ABNORMAL) BASIC METABOLIC PANEL (11/07/2023 4:30 AM CABLE RESPOOLER) SODIUM 137 136 - 145 mmol/L 11/07/2023 8:41 AM [facility] POTASSIUM 4.2 3.4 - 5.1 mmol/L 11/07/2023 8:41 AM [facility] CHLORIDE 100 98 - 107 mmol/L 11/07/2023 8:41 AM [facility] CO2 22 22 - 29 mmol/L 11/07/2023 8:41 AM [facility] CALCIUM 9.9 8.6 - 10.4 mg/dL 11/07/2023 8:41 AM [facility] BUN 41(H) 6 - 20 mg/dL 11/07/2023 8:41 AM [facility] CREATININE 1.03 0.67 - 1.17 mg/dL 11/07/2023 8:41 AM [facility] Comment:The GFR result is no t clinically significant on patients <18 or >70 years of age. GLUCOSE 109(H) 74 - 99 mg/dL 11/07/2023 8:41 AM [facility] GFR >60 mL/min/1.7 3 sq meter 11/07/2023 8:41 AM [facility] Comment:eGFR calculated with 2020 CKD-EPI equation. Vegetarian diet, extremely high or low muscle mass, and may affect results. Cystatin C with Glomerular Filtration Rate is a suitable alternative for these patients. ANION GAP 15 8 - 16 mmol/L 11/07/2023 8:41 AM CABLE RESPOOLER [facility] LABORATORY SERVICES [facility] Blood 11/07/2023 4:30 AM CABLE RESPOOLER 11/07/2023 8:12 AM CABLE RESPOOLER Erik Chairez MD CHEMISTRY ORDERABLES Final Resul t [facility] LABORATORY [facility] CLIA# [id number] [place] [address] documented in this encounter Visit Diagnoses Not on filedocumented in this encounter Additional Health Concerns Infection Onset Date Last Indicated Resolved Time 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
--- OUTSIDE RECORDS SUMMARY | 2025-03-09 13:25 | XMS_ITS | Encounter Summary ---
Author Organization [facility] Address [address] [place] [address] Care Team Providers Care Conversion Man Name Role Phone Unavailable Primary Care Provider Unavailabl e Encounter Details Date Type Department Care Team (Late st Contact Info) Description 10/23/2023 Lab Requisition [facility] Laboratory Services [address] [place] [address] [place] [id number] [place] [address] Social History Tobacco Use Types Packs/Day Years Used Date Smoking Tobacco: Never Assessed Sex and Gender Information Value Date Recorded Sex Assigned at Not on file Legal Sex Male 9:18 AM DRIER UNLOADER Gender Identity Not on file Sexual Orientation Not on file documented as of this encounter Plan of Treatment Not on file documented as of this encounter Procedures Procedure Name Priority Date/Time Associated Diagnosis Comments CBC WITH DIFFERENTIAL Routine 10/23/2023 2:45 AM DRIER UNLOADER BASIC METABOLIC PANEL Routine 10/23/2023 2:45 AM DRIER UNLOADER documented in this encounter Results * (ABNORMAL) CBC WITH DIFFERENTIAL (10/23/2023 2:45 AM DRIER UNLOADER) WBC 12.7(H) 4.5 - 10.5 K/uL 10/23/2023 11:15 AM DRIER UNLOADER [facility] LABORATORY SERVICES - [facility] RBC 4.12(L) 4.50 - 5.40 M/uL 10/23/2023 11:15 AM DRIER UNLOADER [facility] LABORATORY [facility] HEMOGLOBIN 12.2(L) 13.6 - 16.5 g/dL 10/23/2023 11:15 AM DRIER UNLOADER [facility] LABORATORY SERVICES [facility] HEMATOCRIT 38.7(L) 40.0 - 48.0 % 10/23/2023 11:15 AM DRIER UNLOADER [facility] LABORATORY SERVICES - [facility] MCV 94.0 82.0 - 99.0 fL 10/23/2023 11:15 AM DRIER UNLOADER [facility] LABORATORY SERVICES [facility] MCH 29.7 27.8 - 34.5 pg 10/23/2023 11:15 AM DRIER UNLOADER [facility] LABORATORY SERVICES [facility] MCHC 31.6(L) 32.5 - 35.5 g/dL 10/23/2023 11:15 AM DRIER UNLOADER [facility] LABORATORY SERVICES [facility] RDW 17.3(H) 11.5 - 14.5 % 10/23/2023 11:15 AM DRIER UNLOADER [facility] LABORATORY SERVICES [facility] PLATELETS 264 160 - 420 K/uL 10/23/2023 11:15 AM DRIER UNLOADER [facility] LABORATORY SERVICES [facility] MPV 9.6 8.7 - 12.7 fL 10/23/2023 11:15 AM DRIER UNLOADER [facility] LABORATORY SERVICES [facility] NEUTROPHILS 67 % 10/23/2023 11:15 AM DRIER UNLOADER [facility] LABORATORY SERVICES [facility] LYMPHOCYTES 20 % 10/23/2023 11:15 AM DRIER UNLOADER [facility] LABORATORY SERVICES [facility] MONOCYTES 5 % 10/23/2023 11:15 AM DRIER UNLOADER [facility] LABORATORY SERVICES [facility] EOSINOPHILS 8 % 10/23/2023 11:15 AM DRIER UNLOADER [facility] LABORATORY SERVICES [facility] BASOPHILS 1 % 10/23/2023 11:15 AM DRIER UNLOADER [facility] LABORATORY SERVICES [facility] NEUTROPHIL ABSOLUTE 8.50(H) 1.90 - 7.00 K/uL 10/23/2023 11:15 AM DRIER UNLOADER [facility] LABORATORY SERVICES [facility] LYMPHOCYTE ABSOLUTE 2.50 0.70 - 4.50 K/uL 10/23/2023 11:15 AM DRIER UNLOADER [facility] LABORATORY SERVICES [facility] MONOCYTE ABSOLUTE 0.60 0.10 - 1.30 K/uL 10/23/2023 11:15 AM DRIER UNLOADER [facility] LABORATORY SERVICES [facility] EOSINOPHIL ABSOLUTE 1.00(H) 0.00 - 0.70 K/uL 10/23/2023 11:15 AM DRIER UNLOADER [facility] LABORATORY SERVICES [facility] BASOPHILS ABSOLUTE 0.10 0.00 - 0.20 K/uL 10/23/2023 11:15 AM [facility] Blood Collection / Unknown 10/23/2023 2:45 AM DRIER UNLOADER 10/23/2023 10:44 AM DRIER UNLOADER Erik Chairez MD HEMATOLOGY ORDERABLES Final Resu lt [facility] CLIA# [id number] [place] [address] * (ABNORMAL) BASIC METABOLIC PANEL (10/23/2023 2:45 AM DRIER UNLOADER) SODIUM 139 136 - 145 mmol/L 10/23/2023 11:42 AM [facility] POTASSIUM 4.5 3.4 - 5.1 mmol/L 10/23/2023 11:42 AM [facility] CHLORIDE 100 98 - 107 mmol/L 10/23/2023 11:42 AM [facility] CO2 24 22 - 29 mmol/L 10/23/2023 11:42 AM [facility] CALCIUM 9.6 8.6 - 10.4 mg/dL 10/23/2023 11:42 AM [facility] BUN 36(H) 6 - 20 mg/dL 10/23/2023 11:42 AM [facility] CREATININE 0.95 0.67 - 1.17 mg/dL 10/23/2023 11:42 AM [facility] Comment:The GFR result is no t clinically significant on patients <18 or >70 years of age. GLUCOSE 86 74 - 99 mg/dL 10/23/2023 11:42 AM [facility] GFR >60 mL/min/1.7 3 sq meter 10/23/2023 11:42 AM [facility] Comment:eGFR calculated with 2020 CKD-EPI equation. Vegetarian diet, extremely high or low muscle mass, and may affect results. Cystatin C with Glomerular Filtration Rate is a suitable alternative for these patients. ANION GAP 15 8 - 16 mmol/L 10/23/2023 11:42 AM DRIER UNLOADER [facility] LABORATORY SERVICES [facility] Blood Collection / Unknown 10/23/2023 2:45 AM DRIER UNLOADER 10/23/2023 10:44 AM DRIER UNLOADER Erik Chairez MD CHEMISTRY ORDERABLES Final Resul t [facility] LABORATORY SERVICES 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
--- OUTSIDE RECORDS SUMMARY | 2025-03-09 13:25 | XMS_ITS | Encounter Summary ---
Author Organization [facility] Address [address] [place] [address] Care Team Providers Care Ruby Rails Developer Name Role Phone Unavailable Primary Care Provider Unavailabl e Encounter Details Date Type Department Care Team (Late st Contact Info) Description 11/04/2023 Lab Requisition [facility] Laboratory Services [address] [place] [address] [place] [address] [place] [address] Social History Tobacco Use Types Packs/Day Years Used Date Smoking Tobacco: Never Assessed Sex and Gender Information Value Date Recorded Sex Assigned at Not on file Legal Sex Male 9:18 AM BAKERY DELIVERER Gender Identity Not on file Sexual Orientation Not on file documented as of this encounter Plan of Treatment Not on file documented as of this encounter Procedures Procedure Name Priority Date/Time Associated Diagnosis Comments CBC WITH DIFFERENTIAL Routine 11/04/2023 3:45 AM BAKERY DELIVERER BASIC METABOLIC PANEL Routine 11/04/2023 3:45 AM BAKERY DELIVERER documented in this encounter Results * (ABNORMAL) CBC WITH DIFFERENTIAL (11/04/2023 3:45 AM BAKERY DELIVERER) WBC 12.2(H) 4.5 - 10.5 K/uL 11/04/2023 8:52 AM BAKERY DELIVERER [facility] LABORATORY SERVICES - [facility] RBC 4.11(L) 4.50 - 5.40 M/uL 11/04/2023 8:52 AM BAKERY DELIVERER [facility] LABORATORY [facility] HEMOGLOBIN 11.7(L) 13.6 - 16.5 g/dL 11/04/2023 8:52 AM BAKERY DELIVERER [facility] LABORATORY [facility] HEMATOCRIT 37.9(L) 40.0 - 48.0 % 11/04/2023 8:52 AM BAKERY DELIVERER [facility] LABORATORY SERVICES [facility] MCV 92.2 82.0 - 99.0 fL 11/04/2023 8:52 AM BAKERY DELIVERER [facility] LABORATORY [facility] MCH 28.5 27.8 - 34.5 pg 11/04/2023 8:52 AM BAKERY DELIVERER [facility] LABORATORY SERVICES [facility] MCHC 30.9(L) 32.5 - 35.5 g/dL 11/04/2023 8:52 AM BAKERY DELIVERER [facility] LABORATORY SERVICES [facility] RDW 17.0(H) 11.5 - 14.5 % 11/04/2023 8:52 AM BAKERY DELIVERER [facility] LABORATORY SERVICES [facility] PLATELETS 272 160 - 420 K/uL 11/04/2023 8:52 AM BAKERY DELIVERER [facility] LABORATORY SERVICES [facility] MPV 10.0 8.7 - 12.7 fL 11/04/2023 8:52 AM BAKERY DELIVERER [facility] LABORATORY SERVICES [facility] NEUTROPHILS 45 % 11/04/2023 8:52 AM BAKERY DELIVERER [facility] LABORATORY SERVICES [facility] LYMPHOCYTES 38 % 11/04/2023 8:52 AM BAKERY DELIVERER [facility] LABORATORY SERVICES [facility] MONOCYTES 7 % 11/04/2023 8:52 AM BAKERY DELIVERER [facility] LABORATORY SERVICES [facility] EOSINOPHILS 11 % 11/04/2023 8:52 AM BAKERY DELIVERER [facility] LABORATORY SERVICES [facility] BASOPHILS 1 % 11/04/2023 8:52 AM BAKERY DELIVERER [facility] LABORATORY [facility] NEUTROPHIL ABSOLUTE 5.50 1.90 - 7.00 K/uL 11/04/2023 8:52 AM BAKERY DELIVERER [facility] LABORATORY SERVICES [facility] LYMPHOCYTE ABSOLUTE 4.60(H) 0.70 - 4.50 K/uL 11/04/2023 8:52 AM BAKERY DELIVERER [facility] LABORATORY SERVICES [facility] MONOCYTE ABSOLUTE 0.80 0.10 - 1.30 K/uL 11/04/2023 8:52 AM BAKERY DELIVERER [facility] LABORATORY SERVICES [facility] EOSINOPHIL ABSOLUTE 1.30(H) 0.00 - 0.70 K/uL 11/04/2023 8:52 AM BAKERY DELIVERER [facility] LABORATORY SERVICES [facility] BASOPHILS ABSOLUTE 0.10 0.00 - 0.20 K/uL 11/04/2023 8:52 AM [facility] [place] [facility] Blood 11/04/2023 3:45 AM BAKERY DELIVERER 11/04/2023 8:24 AM BAKERY DELIVERER Erik Chairez MD HEMATOLOGY ORDERABLES Final Resu lt [facility] CLIA# [id number] [place] [address] * (ABNORMAL) BASIC METABOLIC PANEL (11/04/2023 3:45 AM BAKERY DELIVERER) SODIUM 144 136 - 145 mmol/L 11/04/2023 9:49 AM [facility] POTASSIUM 5.3(H) 3.4 - 5.1 mmol/L 11/04/2023 9:49 AM [facility] CHLORIDE 103 98 - 107 mmol/L 11/04/2023 9:49 AM [facility] CO2 26 22 - 29 mmol/L 11/04/2023 9:49 AM [facility] CALCIUM 10.7(H) 8.6 - 10.4 mg/dL 11/04/2023 9:49 AM [facility] BUN 38(H) 6 - 20 mg/dL 11/04/2023 9:49 AM [facility] CREATININE 0.95 0.67 - 1.17 mg/dL 11/04/2023 9:49 AM [facility] Comment:The GFR result is no t clinically significant on patients <18 or >70 years of age. GLUCOSE 114(H) 74 - 99 mg/dL 11/04/2023 9:49 AM [facility] GFR >60 mL/min/1.7 3 sq meter 11/04/2023 9:49 AM [facility] Comment:eGFR calculated with 2020 CKD-EPI equation. Vegetarian diet, extremely high or low muscle mass, and may affect results. Cystatin C with Glomerular Filtration Rate is a suitable alternative for these patients. ANION GAP 15 8 - 16 mmol/L 11/04/2023 9:49 AM BAKERY DELIVERER [facility] LABORATORY [facility] Blood 11/04/2023 3:45 AM BAKERY DELIVERER 11/04/2023 8:24 AM BAKERY DELIVERER Erik Chairez MD CHEMISTRY ORDERABLES Final Resul t [facility] CLIA# [id number] [address] [place] [address] documented in this encounter Visit Diagnoses Not on filedocumented in this encounter Additional Health Concerns Infection Onset Date Last Indicated Resolved Time 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
--- OUTSIDE RECORDS SUMMARY | 2025-03-09 13:25 | XMS_ITS | Continuity of Care Document ---
Author Organization [facility] Address [address] [place] [address] [place] [address] Phone Care Team Providers Care Energy Rater Name Role Phone Karsten Mason MD Unavailable Unavailable Procedures Procedure Date Office/outpatient Visit, [facility] Advance Directives Directive Yes / No Effective Date File Name No Information Encounters Encounter Description Practice Location Reason(s) For Visit Diagnoses Date Provider Providers Copied on Encounter Office/outpat ient Visit, [facility], [id number] [place] [address] [address], [place], [place], [id number], [place] tel:[phone] SEC [facility] No Information [phone] Shelley. [address] [facility], [place], [place], [id number], [place]. tel:[phone] Family History Family Member Type Diagnosis Age At Onset No Information Payers Payer name Insurance type Covered alliance party ID Authoriza tion(s) Medicare [facility] [id number] Social History Type Description Quantity Date Captured [...]
--- OUTSIDE RECORDS SUMMARY | 2025-03-09 13:25 | XMS_ITS | Encounter Summary ---
Author Organization [facility] Address [address] [place] [address] Care Team Providers Care Mobile Lab Technician Name Role Phone Unavailable Primary Care Provider Unavailabl e Encounter Details Date Type Department Care Team (Late st Contact Info) Description 11/07/2023 Lab Requisition [facility] Laboratory Services [address] [place] [address] [place] [address] [place] [address] Social History Tobacco Use Types Packs/Day Years Used Date Smoking Tobacco: Never Assessed Sex and Gender Information Value Date Recorded Sex Assigned at Not on file Legal Sex Male 9:18 AM COUNSELING SERVICES MANAGER Gender Identity Not on file Sexual Orientation Not on file documented as of this encounter Plan of Treatment Not on file documented as of this encounter Procedures Procedure Name Priority Date/Time Associated Diagnosis Comments THEOPHYLLINE LEVEL Routine 11/07/2023 8: 40 AM COUNSELING SERVICES MANAGER documented in this encounter Results * (ABNORMAL) THEOPHYLLINE LEVEL (11/07/2023 8:40 AM COUNSELING SERVICES MANAGER) THEOPHYLLINE LEVEL <0.8(L) 10.0 - 20.0 ug/mL 11/07/2023 3:56 PM COUNSELING SERVICES MANAGER [facility] Comment:Verified by repeat a nalysis. TDM LAST DATE, TIME, AMT (TIFFANIE) Patient unable to state date. time or dose. 11/07/2023 3:56 PM COUNSELING SERVICES MANAGER [facility] LAST DOSE AMT, THEOPHYLLINE Other 11/07/2023 3:56 PM COUNSELING SERVICES MANAGER [facility] Comment:80 mg Blood 11/07/2023 8:40 AM COUNSELING SERVICES MANAGER 11/07/2023 10:34 AM COUNSELING SERVICES MANAGER Narrative [facility] - 11/07/2023 3:56 PM COUNSELING SERVICES MANAGER Theophylline Toxic Levels: 6 months - Adult = >20.0 ug/mL 0 - 6 months = >15.0 ug/mL Erik Chairez MD CHEMISTRY ORDERABLES Final Resul t [facility] CLIA# [id number] [address] [place] [address] 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
--- OUTSIDE RECORDS SUMMARY | 2025-03-09 13:25 | XMS_ITS | Encounter Summary ---
Author Organization [facility] Address [address] [place] [address] Care Team Providers Care Paper Stacker Name Role Phone Unavailable Primary Care Provider Unavailabl e Encounter Details Date Type Department Care Team (Late st Contact Info) Description 10/13/2023 Lab Requisition [facility] Laboratory Services [address] [place] [address] [place] [address] [place] [address] Social History Tobacco Use Types Packs/Day Years Used Date Smoking Tobacco: Never Assessed Sex and Gender Information Value Date Recorded Sex Assigned at Not on file Legal Sex Male 9:18 AM VIDEOTAPE RECORDING ENGINEER Gender Identity Not on file Sexual Orientation Not on file documented as of this encounter Plan of Treatment Not on file documented as of this encounter Procedures Procedure Name Priority Date/Time Associated Diagnosis Comments MAGNESIUM LEVEL Routine 10/13/2023 4:00 AM VIDEOTAPE RECORDING ENGINEER RENAL FUNCTION PANEL Routine 10/13/2023 4:00 AM VIDEOTAPE RECORDING ENGINEER documented in this encounter Results * MAGNESIUM LEVEL (10/13/2023 4:00 AM VIDEOTAPE RECORDING ENGINEER) MAGNESIUM 2.3 1.6 - 2.6 mg/dL 10/13/2023 5:59 AM VIDEOTAPE RECORDING ENGINEER [facility] Blood Collection / Unknown 10/13/2023 4:00 AM VIDEOTAPE RECORDING ENGINEER 10/13/2023 5:20 AM VIDEOTAPE RECORDING ENGINEER us Erik Chairez MD CHEMISTRY ORDERABLES Final Resul t [facility] [id number] [address] [place] [address] * (ABNORMAL) RENAL FUNCTION PANEL (10/13/2023 4:00 AM VIDEOTAPE RECORDING ENGINEER) SODIUM 138 136 - 145 mmol/L 10/13/2023 5:58 AM [facility] POTASSIUM 4.5 3.4 - 5.1 mmol/L 10/13/2023 5:58 AM [facility] CHLORIDE 100 98 - 107 mmol/L 10/13/2023 5:58 AM [facility] CO2 25 22 - 29 mmol/L 10/13/2023 5:58 AM [facility] CALCIUM 9.6 8.6 - 10.4 mg/dL 10/13/2023 5:58 AM [facility] BUN 39(H) 6 - 20 mg/dL 10/13/2023 5:58 AM [facility] CREATININE 1.09 0.67 - 1.17 mg/dL 10/13/2023 5:58 AM [facility] Comment:The GFR result is no t clinically significant on patients <18 or >70 years of age. GLUCOSE 100(H) 74 - 99 mg/dL 10/13/2023 5:58 AM [facility] ALBUMIN 3.5 3.5 - 5.2 g/dL 10/13/2023 5:58 AM [facility] PHOSPHORUS 4.8(H) 2.5 - 4.5 mg/dL 10/13/2023 5:58 AM [facility] GFR >60 mL/min/1.7 3 sq meter 10/13/2023 5:58 AM [facility] Comment:eGFR calculated with 2020 CKD-EPI equation. Vegetarian diet, extremely high or low muscle mass, and may affect results. Cystatin C with Glomerular Filtration Rate is a suitable alternative for these patients. ANION GAP 13 8 - 16 mmol/L 10/13/2023 5:58 AM [facility] Blood Collection / Unknown 10/13/2023 4:00 AM VIDEOTAPE RECORDING ENGINEER 10/13/2023 5:20 AM VIDEOTAPE RECORDING ENGINEER Erik Chairez MD CHEMISTRY ORDERABLES Final Resul t [facility] LABORATORY SERVICES [facility] CLIA# [id number] [address] [place] [address] documented in this encounter Visit Diagnoses Not on filedocumented in this encounter Additional Health Concerns Infection Onset Date Last Indicated Resolved Time 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
--- OUTSIDE RECORDS SUMMARY | 2025-03-09 13:25 | XMS_ITS | Encounter Summary ---
Author Organization [facility] Address [address] [place] [address] Care Team Providers Care Bank Advisor Name Role Phone Unavailable Primary Care Provider Unavailabl e Encounter Details Date Type Department Care Team (Late st Contact Info) Description 10/14/2023 Lab Requisition [facility] Laboratory Services [address] [place] [address] [place] [address] [place] [address] Social History Tobacco Use Types Packs/Day Years Used Date Smoking Tobacco: Never Assessed Sex and Gender Information Value Date Recorded Sex Assigned at Not on file Legal Sex Male 9:18 AM SENIOR INFORMATION SYSTEMS ARCHITECT Gender Identity Not on file Sexual Orientation Not on file documented as of this encounter Plan of Treatment Not on file documented as of this encounter Procedures Procedure Name Priority Date/Time Associated Diagnosis Comments CBC WITH DIFFERENTIAL Routine 10/14/2023 2:35 AM SENIOR INFORMATION SYSTEMS ARCHITECT TRIGLYCERIDE Routine 10/14/2023 2:35 AM SENIOR INFORMATION SYSTEMS ARCHITECT PHOSPHORUS Routine 10/14/2023 2:35 AM SENIOR INFORMATION SYSTEMS ARCHITECT MAGNESIUM LEVEL Routine 10/14/2023 2:35 AM SENIOR INFORMATION SYSTEMS ARCHITECT COMPREHENSIVE METABOLIC PANEL Routine 10/14/2023 2:35 AM SENIOR INFORMATION SYSTEMS ARCHITECT documented in this encounter Results * (ABNORMAL) TRIGLYCERIDE (10/14/2023 2:35 AM SENIOR INFORMATION SYSTEMS ARCHITECT) TRIGLYCERIDE 161(H) <150 mg/dL 10/14/2023 8:26 AM SENIOR INFORMATION SYSTEMS ARCHITECT [facility] LABORATORY SERVICES [facility] Blood Collection / Unknown 10/14/2023 2:35 AM SENIOR INFORMATION SYSTEMS ARCHITECT 10/14/2023 7:22 AM SENIOR INFORMATION SYSTEMS ARCHITECT Narrative [facility] - 10/14/2023 8:26 AM SENIOR INFORMATION SYSTEMS ARCHITECT TRIGLYCERIDES mg/dL Normal < 150 Borderline High 150 - 199 High 200 - 499 Very High >= 500 Based on AHA/NCEP Guidelines. us Erik Chairez MD CHEMISTRY ORDERABLES Final Resul t Performing Organization Address City/[facility]/ZIP Co de Phone Number [facility] CLIA# [id number] [address] [place] [address] * PHOSPHORUS (10/14/2023 2:35 AM SENIOR INFORMATION SYSTEMS ARCHITECT) PHOSPHORUS 3.4 2.5 - 4.5 mg/dL 10/14/2023 8:26 AM SENIOR INFORMATION SYSTEMS ARCHITECT [facility] Blood Collection / Unknown 10/14/2023 2:35 AM SENIOR INFORMATION SYSTEMS ARCHITECT 10/14/2023 7:22 AM SENIOR INFORMATION SYSTEMS ARCHITECT us Erik Chairez MD CHEMISTRY ORDERABLES Final Resul t Performing Organization Address City/[facility] Co de Phone Number [id number] [place] [address] * MAGNESIUM LEVEL (10/14/2023 2:35 AM SENIOR INFORMATION SYSTEMS ARCHITECT) MAGNESIUM 2.5 1.6 - 2.6 mg/dL 10/14/2023 8:26 AM SENIOR INFORMATION SYSTEMS ARCHITECT [facility] Blood Collection / Unknown 10/14/2023 2:35 AM SENIOR INFORMATION SYSTEMS ARCHITECT 10/14/2023 7:22 AM SENIOR INFORMATION SYSTEMS ARCHITECT us Erik Chairez MD CHEMISTRY ORDERABLES Final Resul t Performing Organization Address City/[facility]/ZIP Co de Phone Number [facility] [id number] [place] [address] * (ABNORMAL) CBC WITH DIFFERENTIAL (10/14/2023 2:35 AM SENIOR INFORMATION SYSTEMS ARCHITECT) [facility] WBC 9.2 4.5 - 10.5 K/uL 10/14/2023 8:02 AM [facility]ORATORY [facility] RBC 3.58(L) 4.50 - 5.40 M/uL 10/14/2023 8:02 AM [facility] HEMOGLOBIN 11.0(L) 13.6 - 16.5 g/dL 10/14/2023 8:02 AM [facility]ORAT[facility] HEMATOCRIT 33.5(L) 40.0 - 48.0 % 10/14/2023 8:02 AM [facility] LABORAT[facility] MCV 93.6 82.0 - 99.0 fL 10/14/2023 8:02 AM [facility] LABORAT[facility] MCH 30.6 27.8 - 34.5 pg 10/14/2023 8:02 AM [facility] [employer] [facility] MCHC 32.7 32.5 - 35.5 g/dL 10/14/2023 8:02 AM [facility] [employer] [facility] RDW 17.7(H) 11.5 - 14.5 % 10/14/2023 8:02 AM [facility] LABORATORY [facility] PLATELETS 214 160 - 420 K/uL 10/14/2023 8:02 AM [facility] [employer] [facility] MPV 9.2 8.7 - 12.7 fL 10/14/2023 8:02 AM [facility] [employer] [facility] NEUTROPHILS 58 % 10/14/2023 8:02 AM [facility] LABORATORY [facility] LYMPHOCYTES 24 % 10/14/2023 8:02 AM [facility] LABOR[facility] MONOCYTES 8 % 10/14/2023 8:02 AM SENIOR INFORMATION SYSTEMS ARCHITECT [facility] LABORATORY [facility] EOSINOPHILS 9 % 10/14/2023 8:02 AM [facility] LABOR[facility]ORY [facility] BASOPHILS 0 % 10/14/2023 8:02 AM [facility]OR[facility] NEUTROPHIL ABSOLUTE 5.40 1.90 - 7.00 K/uL 10/14/2023 8:02 AM [facility] [employer] [facility] LYMPHOCYTE ABSOLUTE 2.20 0.70 - 4.50 K/uL 10/14/2023 8:02 AM [facility] MONOCYTE ABSOLUTE 0.70 0.10 - 1.30 K/uL 10/14/2023 8:02 AM [facility] EOSINOPHIL ABSOLUTE 0.90(H) 0.00 - 0.70 K/uL 10/14/2023 8:02 AM [facility] BASOPHILS ABSOLUTE 0.00 0.00 - 0.20 K/uL 10/14/2023 8:02 AM [facility] Blood Collection / Unknown 10/14/2023 2:35 AM SENIOR INFORMATION SYSTEMS ARCHITECT 10/14/2023 7:22 AM SENIOR INFORMATION SYSTEMS ARCHITECT Erik Chairez MD HEMATOLOGY ORDERABLES Final Resu lt [facility] CLIA# [id number] [place] [address] * (ABNORMAL) COMPREHENSIVE METABOLIC PANEL (10/14/2023 2:35 AM SENIOR INFORMATION SYSTEMS ARCHITECT) SODIUM 135(L) 136 - 145 mmol/L 10/14/2023 8:26 AM [facility] POTASSIUM 4.0 3.4 - 5.1 mmol/L 10/14/2023 8:26 AM [facility] CHLORIDE 97(L) 98 - 107 mmol/L 10/14/2023 8:26 AM [facility] CO2 24 22 - 29 mmol/L 10/14/2023 8:26 AM [facility] CALCIUM 9.5 8.6 - 10.4 mg/dL 10/14/2023 8:26 AM [facility] BUN 36(H) 6 - 20 mg/dL 10/14/2023 8:26 AM [facility] CREATININE 1.18(H) 0.67 - 1.17 mg/dL 10/14/2023 8:26 AM [facility] [employer] [facility] Comment:The GFR result is no t clinically significant on patients <18 or >70 years of age. GLUCOSE 84 74 - 99 mg/dL 10/14/2023 8:26 AM [facility] TOTAL PROTEIN 7.4 6.3 - 8.7 g/dL 10/14/2023 8:26 AM [facility] ALBUMIN 3.6 3.5 - 5.2 g/dL 10/14/2023 8:26 AM [facility] BILIRUBIN TOTAL 0.6 0.2 - 1.1 mg/dL 10/14/2023 8:26 AM [facility] ALKALINE PHOSPHATASE 99 40 - 150 U/L 10/14/2023 8:26 AM [facility] AST 22 0 - 41 U/L 10/14/2023 8:26 AM [facility] ALT 16 0 - 41 U/L 10/14/2023 8:26 AM [facility] GFR >60 mL/min/1.7 3 sq meter 10/14/2023 8:26 AM [facility] Comment:eGFR calculated with 2020 CKD-EPI equation. Vegetarian diet, extremely high or low muscle mass, and may affect results. Cystatin C with Glomerular Filtration Rate is a suitable alternative for these patients. 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
--- OUTSIDE RECORDS SUMMARY | 2025-03-09 13:25 | XMS_ITS | Clinical Summary ---
Author Organization [facility] [employer] Address [address] [facility] [place] [address] Care Team Providers Care Bleaching Machine Operator Name Role Phone Demond Stark MD Primary Care Provider [phone] [facility] [employer],non-owned Affiliates and Associated Physician Practices is amultiple site organization consisting of ambulatory clinics and hospital sitesin [place], [place], [place] and [place]. This disclosure is being madepursuant to the Care Everywhere program and may not contain all information available regarding this patient. Last updated 18.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 12/20 Overview (01/01/2025): IRENE GROSSMAN VSSL 2010: Non STEMI and CABG x3 (HOBSON to the LAD, sequential RA to OM and D1) History of coronary artery bypass surgery 2009 Overview (01/01/2025): AORTOCORONARY BYPASS Encounters Date Type Department Care Team Description 02/05/2025 8:30 AM CDT Office Visit [facility] [place] [address] [place] [phone] Callie Mendoza DO Zenker's diverticulum (Primary Dx); Frailty; Aspiration pneumonia due to gastric secretions, unspecified laterality, unspecified part of lung (HCC); Clostridium difficile diarrhea; Presence of externally removable percutaneous endoscopic gastrostomy (PEG) tube (HCC) 02/05/2025 Travel 01/01/2025 9:30 AM CDT Office Visit [facility] - Neurology [address] [place] [phone] Alberto Jeffers MD Dizziness (Primary Dx); Parkinsonism, unspecified Parkinsonism type (HCC) 01/01/2025 Travel 12/22/2024 1:23 PM CDT Anesthesia Event [facility] [address] [place] [address] Nnamdi Miller DO Dobbs, Kristin L, TRACER LATHE SET UP OPERATOR-PROFESSIONAL DEVELOPMENT MANAGER 12/22/2024 1:00 PM CDT - 12/22/2024 2:30 PM CDT Surgery [facility] [address] [place] [address] Callie Mendoza DO EGD w/Z-poem 12/22/2024 11:53 AM CDT - 12/25/2024 4:30 PM CDT Hospital Encounter [facility] SHORT STAY UNIT [address] [place] [phone] Callie Mendoza DO Vaidyan, Philip B, MD Surgery General Discharge Disposition: Home Health Care [facility] [place] 12/22/2024 Travel 12/16/2024 Telephone [facility] [address] [place] [phone] Alina Hinojosa Procedure (Procedure Confirmation) 12/08/2024 Telephone [facility] [place] [address] [facility], [place] [address] Karthik Keyes, resp ther (EGD w/Zpoem for zenkers with Dr. Mendoza for patient seen in her clinic) 12/07/2024 8:13 AM CDT - 12/07/2024 11:59 PM CDT Hospital Encounter [facility] DIAGNOSTIC RAD [address] [place] [phone] Callie Mendoza DO Discharge Disposition: Home or [...] and heating? Not hard at all 12/25/2024 [facility] Occupat ional Health - Occupational Stress [...] time in the past [address] [facility], were you homeless or living in a snf (including now)? 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 Male 5:43 PM FARMWORKER FUR Gender Identity Not on file Sexual Orientation [...] Office Visit [facility] - Neurology [facility] [facility], [place] [phone] Venus Mckinley APRN-OBSERVER [employer] [address] [place] [address] [place] [phone] 04/29/2025 10:00 AM CDT Appointment [facility]NO[facility] RAD [address] [place] [address] Callie Mendoza DO [address] [facility] 3RD FLOOR DOOR 1 [place] [address] 02/04/2026 9:00 AM CDT Office Visit [facility] [place] [address] [facility] [place] [address] Callie Mendoza DO [address] [facility] 3RD FLOOR DOOR 1 [place] [address] Health Maintenance Due Date Last [...] supplements as ordered Collaborate with the clinical unit manager Oral care Use soft toothbrushes Keep hydrated [...] TUBE NOTE Routine 12/22/2024 1:40 PM CDT ND ENDOSCOPIC ULTRASOUND EXAM 12/22/2024 1:19 PM CDT Zenker's diverticulum EGD Routine 12/22/2024 1:15 PM CDT FL ESOPHAGRAM Routine 12/07/2024 9:37 AM CDT Zenker's diverticulum from Last 3 Months Results * (ABNORMAL) CBC W/O DIFFERENTIAL (12/25/2024 12:59 AM CDT) Only the most recent of3 resultswithin the time period is included. WBC 7.6 4.0 - 10.7 x10E9/L 12/25/2024 1:22 AM [facility] RBC Count 4.35 4.30 - 5.80 x10E12/L 12/25/2024 1:22 AM [facility] Hemoglobin 13.5 13.3 - 17.5 g/dL 12/25/2024 1:22 AM [facility] Hematocrit 40.0 38.7 - 51.1 % 12/25/2024 1:22 AM [facility] MCV 92.0 80.0 - 98.0 fL 12/25/2024 1:22 AM [facility] MCH 31.0 26.7 - 33.6 pg 12/25/2024 1:22 AM [facility] MCHC 33.8 31.7 - 36.3 g/dL 12/25/2024 1:22 AM [facility] RDW-CV 12.8 11.3 - 14.8 % 12/25/2024 1:22 AM [facility] Platelet Count 163 150 - 420 x10E9/L 12/25/2024 1:22 AM [facility] MPV 11.7(H) 7.8 - 11.4 fL 12/25/2024 1:22 AM [facility] Blood BLOOD SPECIMEN / Unknown Lab Venipuncture / Unknown 12/25/2024 12:59 AM CDT 12/25/2024 1:12 AM T us Yasir Boyce MD LAB - HEMATOLOGY ORDERABLES Final Result [facility] [address] [place] [address] [phone] * (ABNORMAL) RENAL FUNCTION PANEL (12/25/2024 12:59 AM CDT) Only the most recent of4 resultswithin the time period is included. BUN 21 7 - 26 mg/dL 12/25/2024 1:43 AM [facility] Creatinine 1.01 0.71 - 1.16 mg/dL 12/25/2024 1:43 AM [facility] Sodium 140 136 - 145 mmol/L 12/25/2024 1:43 AM [facility] Potassium 4.0 3.5 - 4.5 mmol/L 12/25/2024 1:43 AM [facility] Chloride 105 98 - 107 mmol/L 12/25/2024 1:43 AM [facility] CO2 27 22 - 29 mmol/L 12/25/2024 1:43 AM [facility] Glucose 109(H) 70 - 99 mg/dL 12/25/2024 1:43 AM [facility] Albumin 3.7 3.4 - 5.0 g/dL 12/25/2024 1:43 AM [facility] Calcium 9.8 8.4 - 10.2 mg/dL 12/25/2024 1:43 AM [facility] Phosphorus 3.2 2.8 - 5.1 mg/dL 12/25/2024 1:43 AM [facility] Anion Gap 8 6 - 16 12/25/2024 1:43 AM [facility] BUN/Creatinine Ratio 21 7 - 23 12/25/2024 1:43 AM [facility] Osmolality Calculated 294 275 - 295 mOsm/kg 12/25/2024 1:43 AM [facility] eGFR by CKD-EPI 73(L) >=90 mL/min/1.7 3 m2 12/25/2024 1:43 AM [facility] Blood BLOOD SPECIMEN / Unknown Lab Venipuncture / Unknown 12/25/2024 12:59 AM CDT 12/25/2024 1:07 AM T us Yasir Boyce MD LAB - CHEMISTRY ORDERABLES F inal Result [facility] [address] [place] [phone], [facility] [phone] * MAGNESIUM BLOOD (12/25/2024 12:59 AM CDT) Only the most recent of3 resultswithin the time period is included. Magnesium 2.0 1.6 - 2.6 mg/dL 12/25/2024 1:43 AM CDT [facility] Blood BLOOD SPECIMEN / Unknown Lab Venipuncture / Unknown 12/25/2024 12:59 AM CDT 12/25/2024 1:07 AM CDT us Yasir Boyce MD LAB - CHEMISTRY ORDERABLES F inal Result Performing Organization Address City/[facility]/ZIP Co de Phone Number [address] [phone], [facility] [phone] * FL SWALLOWING FUNCTION STUDY (12/24/2024 9:33 [...] Tube Placement: Patient Location: OR. Procedure: intubation ([address]607) Procedure Section: Sedation: under general anesthesia. Indications [...] clips) were successfully placed (MR conditional). Clip chief executive: COVEGA. There was no bleeding at the end [...] entire procedure. 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 All rights reserved. The codes documented in this report are preliminary and upon control area operator review may be revised to meet current compliance requirements. Callie Mendoza DO 12/22/2024 7:31:42 PM This report has been signed electronically. Note Initiated On: 12/22/2024 1:15 PM Number of Addenda: [address] [phone] [facility] PROVATION 12/22/2024 1:15 PM CDT Callie Mendoza DO GI PROCEDURE ORDERABLES Edited R esult - Final [facility] from Last 3 Months Insurance MEDICARE [facility] * Guarantor: [employer] Account Type Relation to Patient Date of Phone Billing Address Personal/Family Spouse [facility] STATE [address] [phone] [employer] MEDICARE Advance Directives * Full Code (Latest Code Status on File) Date Activated Date Inactivated Comments 12/22/2024 4:39 PM 12/25/2024 7:01 PM Care Teams Bleaching Machine Operator Relationship Specialty Start Date End Date Demond Stark MD [address] [place] [address] PCP - General 10/03/15
--- OUTSIDE RECORDS SUMMARY | 2025-03-09 13:25 | XMS_ITS | Encounter Summary ---
Author Organization [facility] Address [address] [place] [address] Care Team Providers Care Sprinkler Irrigation Equipment Mechanic Name Role Phone Unavailable Primary Care Provider Unavailabl e Encounter Details Date Type Department Care Team (Late st Contact Info) Description 10/17/2023 Lab Requisition [facility] Services [address] [place] [address] [place] [address] [place] [address] Social History Tobacco Use Types Packs/Day Years Used Date Smoking Tobacco: Never Assessed Sex and Gender Information Value Date Recorded Sex Assigned at Not on file Legal Sex Male 9:18 AM FIELD CONTACT PERSON Gender Identity Not on file Sexual Orientation Not on file documented as of this encounter Plan of Treatment Not on file documented as of this encounter Procedures Procedure Name Priority Date/Time Associated Diagnosis Comments CBC WITH DIFFERENTIAL Routine 10/17/2023 2:15 AM FIELD CONTACT PERSON MAGNESIUM LEVEL Routine 10/17/2023 2:15 AM FIELD CONTACT PERSON RENAL FUNCTION PANEL Routine 10/17/2023 2:15 AM FIELD CONTACT PERSON documented in this encounter Results * MAGNESIUM LEVEL (10/17/2023 2:15 AM FIELD CONTACT PERSON) MAGNESIUM 2.3 1.6 - 2.6 mg/dL 10/17/2023 9:56 AM FIELD CONTACT PERSON [facility] Blood Collection / Unknown 10/17/2023 2:15 AM FIELD CONTACT PERSON 10/17/2023 9:00 AM FIELD CONTACT PERSON Erik Chairez MD CHEMISTRY ORDERABLES Final Resul t [facility] CLIA# [id number] [address] [place] [address] * (ABNORMAL) CBC WITH DIFFERENTIAL (10/17/2023 2:15 AM FIELD CONTACT PERSON) WBC 6.7 4.5 - 10.5 K/uL 10/17/2023 9:34 AM FIELD CONTACT PERSON [facility] RBC 3.73(L) 4.50 - 5.40 M/uL 10/17/2023 9:34 AM FIELD CONTACT PERSON [facility] HEMOGLOBIN 11.1(L) 13.6 - 16.5 g/dL 10/17/2023 9:34 AM FIELD CONTACT PERSON [facility] HEMATOCRIT 35.0(L) 40.0 - 48.0 % 10/17/2023 9:34 AM FIELD CONTACT PERSON [facility] MCV 93.8 82.0 - 99.0 fL 10/17/2023 9:34 AM FIELD CONTACT PERSON [facility] MCH 29.8 27.8 - 34.5 pg 10/17/2023 9:34 AM FIELD CONTACT PERSON [facility] MCHC 31.8(L) 32.5 - 35.5 g/dL 10/17/2023 9:34 AM FIELD CONTACT PERSON [facility] RDW 17.4(H) 11.5 - 14.5 % 10/17/2023 9:34 AM FIELD CONTACT PERSON [facility] PLATELETS 214 160 - 420 K/uL 10/17/2023 9:34 AM FIELD CONTACT PERSON [facility] MPV 9.5 8.7 - 12.7 fL 10/17/2023 9:34 AM FIELD CONTACT PERSON [facility] NEUTROPHILS 50 % 10/17/2023 9:34 AM FIELD CONTACT PERSON [facility] LYMPHOCYTES 28 % 10/17/2023 9:34 AM FIELD CONTACT PERSON [facility] MONOCYTES 8 % 10/17/2023 9:34 AM FIELD CONTACT PERSON [facility] EOSINOPHILS 13 % 10/17/2023 9:34 AM FIELD CONTACT PERSON [facility] BASOPHILS 0 % 10/17/2023 9:34 AM FIELD CONTACT PERSON [facility] NEUTROPHIL ABSOLUTE 3.40 1.90 - 7.00 K/uL 10/17/2023 9:34 AM FIELD CONTACT PERSON [facility] LYMPHOCYTE ABSOLUTE 1.90 0.70 - 4.50 K/uL 10/17/2023 9:34 AM FIELD CONTACT PERSON [facility] MONOCYTE ABSOLUTE 0.50 0.10 - 1.30 K/uL 10/17/2023 9:34 AM FIELD CONTACT PERSON [facility] EOSINOPHIL ABSOLUTE 0.90(H) 0.00 - 0.70 K/uL 10/17/2023 9:34 AM FIELD CONTACT PERSON [facility] BASOPHILS ABSOLUTE 0.00 0.00 - 0.20 K/uL 10/17/2023 9:34 AM FIELD CONTACT PERSON [facility] Blood Collection / Unknown 10/17/2023 2:15 AM FIELD CONTACT PERSON 10/17/2023 9:00 AM FIELD CONTACT PERSON us Erik Chairez MD HEMATOLOGY ORDERABLES Final Resu lt [facility] CLIA# [id number] [place] [address] * (ABNORMAL) RENAL FUNCTION PANEL (10/17/2023 2:15 AM FIELD CONTACT PERSON) SODIUM 137 136 - 145 mmol/L 10/17/2023 9:56 AM [facility] [employer] [facility] POTASSIUM 4.0 3.4 - 5.1 mmol/L 10/17/2023 9:56 AM [facility] CHLORIDE 99 98 - 107 mmol/L 10/17/2023 9:56 AM [facility] [employer] [facility] CO2 23 22 - 29 mmol/L 10/17/2023 9:56 AM [facility] [employer] [facility] CALCIUM 9.2 8.6 - 10.4 mg/dL 10/17/2023 9:56 AM [facility] [employer] [facility] BUN 42(H) 6 - 20 mg/dL 10/17/2023 9:56 AM [facility] CREATININE 1.00 0.67 - 1.17 mg/dL 10/17/2023 9:56 AM [facility] Comment:The GFR result is no t clinically significant on patients <18 or >70 years of age. GLUCOSE 72(L) 74 - 99 mg/dL 10/17/2023 9:56 AM [facility] ALBUMIN 3.2(L) 3.5 - 5.2 g/dL 10/17/2023 9:56 AM [facility] PHOSPHORUS 2.9 2.5 - 4.5 mg/dL 10/17/2023 9:56 AM [facility] GFR >60 mL/min/1.7 3 sq meter 10/17/2023 9:56 AM [facility] Comment:eGFR calculated with 2020 CKD-EPI equation. Vegetarian diet, extremely high or low muscle mass, and may affect results. Cystatin C with Glomerular Filtration Rate is a suitable alternative for these patients. 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
--- OUTSIDE RECORDS SUMMARY | 2025-03-09 13:25 | XMS_ITS | Encounter Summary ---
Author Organization [facility] Address [address] [place] [address] Care Team Providers Care Process Expert Name Role Phone Unavailable Primary Care Provider Unavailabl e Encounter Details Date Type Department Care Team (Late st Contact Info) Description 10/29/2023 Lab Requisition [facility] [address] [place] [address] [place] [address] [place] [address] Social History Tobacco Use Types Packs/Day Years Used Date Smoking Tobacco: Never Assessed Sex and Gender Information Value Date Recorded Sex Assigned at Not on file Legal Sex Male 9:18 AM EGG SORTER Gender Identity Not on file Sexual Orientation Not on file documented as of this encounter Plan of Treatment Not on file documented as of this encounter Procedures Procedure Name Priority Date/Time Associated Diagnosis Comments CBC WITH DIFFERENTIAL Routine 10/29/2023 3:20 AM EGG SORTER BASIC METABOLIC PANEL Routine 10/29/2023 3:20 AM EGG SORTER documented in this encounter Results * (ABNORMAL) CBC WITH DIFFERENTIAL (10/29/2023 3:20 AM EGG SORTER) WBC 8.0 4.5 - 10.5 K/uL 10/29/2023 8:18 AM EGG SORTER [facility] RBC 3.85(L) 4.50 - 5.40 M/uL 10/29/2023 8:18 AM EGG SORTER [facility] HEMOGLOBIN 11.6(L) 13.6 - 16.5 g/dL 10/29/2023 8:18 AM EGG SORTER [facility] HEMATOCRIT 35.7(L) 40.0 - 48.0 % 10/29/2023 8:18 AM EGG SORTER [facility] MCV 92.6 82.0 - 99.0 fL 10/29/2023 8:18 AM EGG SORTER [facility] MCH 30.0 27.8 - 34.5 pg 10/29/2023 8:18 AM EGG SORTER [facility] MCHC 32.4(L) 32.5 - 35.5 g/dL 10/29/2023 8:18 AM EGG SORTER [facility] RDW 17.3(H) 11.5 - 14.5 % 10/29/2023 8:18 AM EGG SORTER [facility] PLATELETS 255 160 - 420 K/uL 10/29/2023 8:18 AM EGG SORTER [facility] MPV 9.9 8.7 - 12.7 fL 10/29/2023 8:18 AM EGG SORTER [facility] NEUTROPHILS 61 % 10/29/2023 8:18 AM EGG SORTER [facility] LYMPHOCYTES 22 % 10/29/2023 8:18 AM [facility]ORTER [facility] MONOCYTES 6 % 10/29/2023 8:18 AM EGG SORTER [facility]ORY [facility] EOSINOPHILS 11 % 10/29/2023 8:18 AM EGG SORTER [facility] BASOPHILS 1 % 10/29/2023 8:18 AM EGG SORTER [facility] NEUTROPHIL ABSOLUTE 4.90 1.90 - 7.00 K/uL 10/29/2023 8:18 AM EGG SORTER [facility] LYMPHOCYTE ABSOLUTE 1.70 0.70 - 4.50 K/uL 10/29/2023 8:18 AM EGG SORTER [facility] MONOCYTE ABSOLUTE 0.50 0.10 - 1.30 K/uL 10/29/2023 8:18 AM EGG SORTER [facility] EOSINOPHIL ABSOLUTE 0.80(H) 0.00 - 0.70 K/uL 10/29/2023 8:18 AM EGG SORTER [facility] BASOPHILS ABSOLUTE 0.00 0.00 - 0.20 K/uL 10/29/2023 8:18 AM [facility] Blood Collection / Unknown 10/29/2023 3:20 AM EGG SORTER 10/29/2023 7:59 AM EGG SORTER Erik Chairez MD HEMATOLOGY ORDERABLES Final Resu lt [facility] CLIA# [id number] [place] [address] * (ABNORMAL) BASIC METABOLIC PANEL (10/29/2023 3:20 AM EGG SORTER) SODIUM 141 136 - 145 mmol/L 10/29/2023 8:38 AM [facility] POTASSIUM 4.5 3.4 - 5.1 mmol/L 10/29/2023 8:38 AM [facility] CHLORIDE 101 98 - 107 mmol/L 10/29/2023 8:38 AM [facility] CO2 28 22 - 29 mmol/L 10/29/2023 8:38 AM [facility] CALCIUM 10.2 8.6 - 10.4 mg/dL 10/29/2023 8:38 AM [facility] BUN 42(H) 6 - 20 mg/dL 10/29/2023 8:38 AM [facility] CREATININE 1.05 0.67 - 1.17 mg/dL 10/29/2023 8:38 AM [facility] Comment:The GFR result is no t clinically significant on patients <18 or >70 years of age. GLUCOSE 112(H) 74 - 99 mg/dL 10/29/2023 8:38 AM [facility] GFR >60 mL/min/1.7 3 sq meter 10/29/2023 8:38 AM [facility] Comment:eGFR calculated with 2020 CKD-EPI equation. Vegetarian diet, extremely high or low muscle mass, and may affect results. Cystatin C with Glomerular Filtration Rate is a suitable alternative for these patients. ANION GAP 12 8 - 16 mmol/L 10/29/2023 8:38 AM EGG SORTER [facility] Blood Collection / Unknown 10/29/2023 3:20 AM EGG SORTER 10/29/2023 7:59 AM EGG SORTER Erik Chairez MD CHEMISTRY ORDERABLES Final Resul t [facility] CLIA# [id number] [place] [address] documented in this encounter Visit Diagnoses Not on filedocumented in this encounter Additional Health Concerns Infection Onset Date Last Indicated Resolved Time CRE-CP Comment:10/09/23 Klebsiella pneumoniae, Sputum 10/09/2023 10/09/2023 05/28/2024 2:37 PM C DT 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
--- OUTSIDE RECORDS SUMMARY | 2025-03-09 13:25 | XMS_ITS | Encounter Summary ---
Author Organization [facility] Address [address] [place] [address] Care Team Providers Care Residential Door Installer Name Role Phone Unavailable Primary Care Provider Unavailabl e Encounter Details Date Type Department Care Team (Late st Contact Info) Description 11/05/2023 Lab Requisition [facility] Laboratory Services [address] [place] [address] [place] [address] [place] [address] Social History Tobacco Use Types Packs/Day Years Used Date Smoking Tobacco: Never Assessed Sex and Gender Information Value Date Recorded Sex Assigned at Not on file Legal Sex Male 9:18 AM GLASS TINTER Gender Identity Not on file Sexual Orientation Not on file documented as of this encounter Plan of Treatment Not on file documented as of this encounter Procedures Procedure Name Priority Date/Time Associated Diagnosis Comments DIFFERENTIAL, MANUAL Routine 11/05/2023 3:30 AM GLASS TINTER CBC WITH DIFFERENTIAL Routine 11/05/2023 3:30 AM GLASS TINTER documented in this encounter Results * MANUAL DIFFERENTIAL (11/05/2023 3:30 AM GLASS TINTER) PLATELET EST. Consistent w Count 11/05/2023 6:05 AM GLASS TINTER [facility] RBC MORPHOLOGY Normal 11/05/2023 6:05 AM GLASS TINTER [facility] Blood Collection / Unknown 11/05/2023 3:30 AM GLASS TINTER 11/05/2023 5:05 AM GLASS TINTER Erik Chairez MD HEMATOLOGY ORDERABLES COM Final Result [facility] CLIA# [id number] [place] [address] * (ABNORMAL) CBC WITH DIFFERENTIAL (11/05/2023 3:30 AM GLASS TINTER) [facility] WBC 7.5 4.5 - 10.5 K/uL 11/05/2023 6:05 AM [facility] RBC 3.81(L) 4.50 - 5.40 M/uL 11/05/2023 6:05 AM [facility] HEMOGLOBIN 11.9(L) 13.6 - 16.5 g/dL 11/05/2023 6:05 AM [facility] HEMATOCRIT 35.6(L) 40.0 - 48.0 % 11/05/2023 6:05 AM [facility] MCV 93.5 82.0 - 99.0 fL 11/05/2023 6:05 AM [facility] MCH 31.2 27.8 - 34.5 pg 11/05/2023 6:05 AM [facility] MCHC 33.3 32.5 - 35.5 g/dL 11/05/2023 6:05 AM [facility] RDW 17.0(H) 11.5 - 14.5 % 11/05/2023 6:05 AM [facility] PLATELETS 243 160 - 420 K/uL 11/05/2023 6:05 AM [facility] MPV 9.4 8.7 - 12.7 fL 11/05/2023 6:05 AM [facility] NEUTROPHILS 63 % 11/05/2023 6:05 AM GLASS TINTER [facility] LYMPHOCYTES 23 % 11/05/2023 6:05 AM GLASS TINTER [facility] MONOCYTES 5 % 11/05/2023 6:05 AM [facility] EOSINOPHILS 9 % 11/05/2023 6:05 AM GLASS TINTER [facility] BASOPHILS 1 % 11/05/2023 6:05 AM GLASS TINTER [facility] NEUTROPHIL ABSOLUTE 4.70 1.90 - 7.00 K/uL 11/05/2023 6:05 AM GLASS TINTER [facility] LYMPHOCYTE ABSOLUTE 1.70 0.70 - 4.50 K/uL 11/05/2023 6:05 AM GLASS TINTER [facility] MONOCYTE ABSOLUTE 0.40 0.10 - 1.30 K/uL 11/05/2023 6:05 AM GLASS TINTER [facility] EOSINOPHIL ABSOLUTE 0.70 0.00 - 0.70 K/uL 11/05/2023 6:05 AM GLASS TINTER [facility] BASOPHILS ABSOLUTE 0.00 0.00 - 0.20 K/uL 11/05/2023 6:05 AM GLASS TINTER [facility] Blood Collection / Unknown 11/05/2023 3:30 AM GLASS TINTER 11/05/2023 5:05 AM GLASS TINTER Erik Chairez MD HEMATOLOGY ORDERABLES Final Resu lt [facility] CLIA# [id number] [place] [address] documented in this encounter Visit Diagnoses Not on filedocumented in this encounter Additional Health Concerns Infection Onset Date Last Indicated Resolved Time CRE-CP Comment:10/09/23 Klebsiella pneumoniae, Sputum 10/09/2023 10/09/2023 05/28/2024 2:37 PM C DT 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
--- OUTSIDE RECORDS SUMMARY | 2025-03-09 13:25 | XMS_ITS | Encounter Summary ---
Author Organization [facility] Address [address] [place] [address] Care Team Providers Care Chocolate Packer Name Role Phone Unavailable Primary Care Provider Unavailabl e Encounter Details Date Type Department Care Team (Late st Contact Info) Description 10/10/2023 Lab Requisition [facility] Laboratory Services [id number] [place] [address] [place] [address] [place] [address] Social History Tobacco Use Types Packs/Day Years Used Date Smoking Tobacco: Never Assessed Sex and Gender Information Value Date Recorded Sex Assigned at Not on file Legal Sex Male 9:18 AM OFFSET PROOF PRESS OPERATOR Gender Identity Not on file Sexual Orientation Not on file documented as of this encounter Plan of Treatment Not on file documented as of this encounter Procedures Procedure Name Priority Date/Time Associated Diagnosis Comments CARBAPENEM RESISTANT ORGANISM Routine 10/09/2023 9:30 PM OFFSET PROOF PRESS OPERATOR SPUTUM CULTURE WITH GRAM STAIN Routine 10/09/2023 9:30 PM OFFSET PROOF PRESS OPERATOR documented in this encounter Results * (ABNORMAL) CARBAPENEM RESISTANT ORGANISM (10/09/2023 9:30 PM OFFSET PROOF PRESS OPERATOR) ORGANISM TESTED Klebsiella pneumoniae 10/12/2023 4:25 PM OFFSET PROOF PRESS OPERATOR [facility] Carbapenem Resistance Gene Detected(A) Not Detected 10/12/2023 4:25 PM OFFSET PROOF PRESS OPERATOR [facility] KPC (carbapenem-re sistance gene) by PCR DETECTED(A) Not Detected 10/12/2023 4:25 PM OFFSET PROOF PRESS OPERATOR [facility] Sputum Collection / Unknown 10/09/2023 9:30 PM OFFSET PROOF PRESS OPERATOR 10/10/2023 9:54 AM OFFSET PROOF PRESS OPERATOR [facility] - 10/12/2023 4:25 PM OFFSET PROOF PRESS OPERATOR This isolate is a carbapenem-resistant Organism (STONE BELT SANDER) AND is a carbapenamase-stage producer. If inpatient, place patient in Enhanced Contact Isolation. The [employer] Xpert Carba-R PCR assay detects the presence of KPC, NDM, VIM, OXA- 48, and IMP gene sequences that induce carbapenemase production in gram negative bacteria. This test was performed using an FDA approved screening methodology. Erik Chairez MD MICROBIOLOGY - GENERAL ORDERABLE S Final Result [facility]# [id number] [address] [address] * (ABNORMAL) SPUTUM CULTURE WITH GRAM STAIN (10/09/2023 9:30 PM OFFSET PROOF PRESS OPERATOR) CULTURE KLEBSIELLA PNEUMONIAE(A) LUCINA MCG/ML 10/17/2023 10:47 AM OFFSET PROOF PRESS OPERATOR [facility] Adlyfe [facility] Comment: This isolate is a Carbapenem-Resistant Organism AND is a carbapenemase stage producer (STONE BELT SANDER-CP). If inpatient, place patient in Enhanced Contact Isolation. Multiple drug resistant organism (MDRO). CULTURE Absent Normal Shahrzad LUCINA MCG/ML 10/17/2023 10:47 AM [facility] Adlyfe [facility] GRAM STAIN Non diagnostic pattern LUCINA MCG/ML 10/17/2023 10:47 AM [facility] GRAM STAIN No WBC observed 10/17/2023 10:47 AM [facility] Adlyfe [facility] Sputum Collection / Unknown 10/09/2023 9:30 PM OFFSET PROOF PRESS OPERATOR 10/10/2023 9:54 AM OFFSET PROOF PRESS OPERATOR [facility] Adlyfe [facility] - 10/17/2023 10:47 AM OFFSET PROOF PRESS OPERATOR Results called to Kelly Suarez RN, Rosalie [...] ARMSTRONG-HERMOSILLO Resistant Klebsiella pneumoniae TRIMETHOPRIM/ SULFAMETHOXAZOLE K HENRY-HERMSOILLO Resistant Klebsiella pneumoniae TIGECYCLINE ARMSTRONG-HERMOSILLO Intermediate Comment:Results [...] Edited Result - Final Performing Organization Address City/State/[facility] Co de Phone Number [facility]# [id number] [address] [place] [address] documented in this encounter Visit Diagnoses Not on filedocumented in this encounter Additional Health Concerns Infection Onset Date Last Indicated Resolved Time CRE-CP Comment:10/09/23 Klebsiella pneumoniae, Sputum 10/09/2023 10/09/2023 05/28/2024 2:37 PM C DT 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
--- OUTSIDE RECORDS SUMMARY | 2025-03-09 13:25 | XMS_ITS | Clinical Summary ---
Author Organization [facility] Address [address] [place] [address] Care Team Providers Care Independent Jeweler Name Role Phone Demond Stark MD Primary Care Provider [phone] Encounters Date Type Department Care Team Description 03/02/2025 Orders Only [facility] Alan. 2 [facility] [address] [place] [address] Rula Caballero MA Renal insufficiency (Primary Dx); Hypertension; Other proteinuria 03/02/2025 Orders Only [facility] Alan. 2 [facility] [address] [place] [address] Rula Caballero MA Renal insufficiency [...] Ended) 2025 07/24/20 10, 07/24/2010 Care Teams Independent Jeweler Relationship Specialty Start Date End Date Demond Stark MD [address] [place] [address] PCP - General Family Medicine 06/04/24
--- OUTSIDE RECORDS SUMMARY | 2025-03-09 13:25 | XMS_ITS | Encounter Summary ---
Author Organization [facility] Address [address] [place] [address] Care Team Providers Care Chief Deputy Name Role Phone Unavailable Primary Care Provider Unavailabl e Encounter Details Date Type Department Care Team (Late st Contact Info) Description 10/11/[address] [facility] Laboratory Services [address] [place] [address] [place] [address] [place] [address] Social History Tobacco Use Types Packs/Day Years Used Date Smoking Tobacco: Never Assessed Sex and Gender Information Value Date Recorded Sex Assigned at Not on file Legal Sex Male 9:18 AM ENGINEERING TECHNICIAN PARKING Gender Identity Not on file Sexual Orientation Not on file documented as of this encounter Plan of Treatment Not on file documented as of this encounter Procedures Procedure Name Priority Date/Time Associated Diagnosis Comments CBC WITH DIFFERENTIAL Routine 10/11/2023 3:30 AM ENGINEERING TECHNICIAN PARKING TRIGLYCERIDE Routine 10/11/2023 3:30 AM ENGINEERING TECHNICIAN PARKING MAGNESIUM LEVEL Routine 10/11/2023 3:30 AM ENGINEERING TECHNICIAN PARKING RENAL FUNCTION PANEL Routine 10/11/2023 3:30 AM ENGINEERING TECHNICIAN PARKING documented in this encounter Results * (ABNORMAL) TRIGLYCERIDE (10/11/2023 3:30 AM ENGINEERING TECHNICIAN PARKING) TRIGLYCERIDE 192(H) <150 mg/dL 10/11/2023 6:28 AM ENGINEERING TECHNICIAN PARKING [facility] Blood 10/11/2023 3:30 AM ENGINEERING TECHNICIAN PARKING 10/11/2023 5:43 AM ENGINEERING TECHNICIAN PARKING Narrative [facility] - 10/11/2023 6:28 AM ENGINEERING TECHNICIAN PARKING TRIGLYCERIDES mg/dL Normal < 150 Borderline High 150 - 199 High 200 - 499 Very High >= 500 Based on AHA/NCEP Guidelines. Erik Chairez MD CHEMISTRY ORDERABLES Final Resul t Performing Organization Address City/[facility]/ZIP Co de Phone Number [facility] CLIA# [id number] [address] [place] [address] * MAGNESIUM LEVEL (10/11/2023 3:30 AM ENGINEERING TECHNICIAN PARKING) MAGNESIUM 2.2 1.6 - 2.6 mg/dL 10/11/2023 6:28 AM [facility] Blood 10/11/2023 3:30 AM ENGINEERING TECHNICIAN PARKING 10/11/2023 5:43 AM ENGINEERING TECHNICIAN PARKING Erik Chairez MD CHEMISTRY ORDERABLES Final Resul t Performing Organization Address City/[facility]/ZIP Co de Phone Number [facility] CLIA# [id number] [address] [place] [address] * (ABNORMAL) CBC WITH DIFFERENTIAL (10/11/2023 3:30 AM ENGINEERING TECHNICIAN PARKING) WBC 8.8 4.5 - 10.5 K/uL 10/11/2023 6:05 AM [facility] RBC 3.43(L) 4.50 - 5.40 M/uL 10/11/2023 6:05 AM [facility] HEMOGLOBIN 10.5(L) 13.6 - 16.5 g/dL 10/11/2023 6:05 AM [facility] HEMATOCRIT 32.7(L) 40.0 - 48.0 % 10/11/2023 6:05 AM [facility] MCV 95.4 82.0 - 99.0 fL 10/11/2023 6:05 AM [facility] MCH 30.7 27.8 - 34.5 pg 10/11/2023 6:05 AM [facility] MCHC 32.2(L) 32.5 - 35.5 g/dL 10/11/2023 6:05 AM [facility] RDW 18.7(H) 11.5 - 14.5 % 10/11/2023 6:05 AM [facility] PLATELETS 218 160 - 420 K/uL 10/11/2023 6:05 AM [facility] MPV 9.3 8.7 - 12.7 fL 10/11/2023 6:05 AM ENGINEERING TECHNICIAN PARKING [facility] NEUTROPHILS 67 % 10/11/2023 6:05 AM ENGINEERING TECHNICIAN PARKING [facility] LYMPHOCYTES 18 % 10/11/2023 6:05 AM ENGINEERING TECHNICIAN PARKING [facility] MONOCYTES 7 % 10/11/2023 6:05 AM ENGINEERING TECHNICIAN PARKING [facility] EOSINOPHILS 7 % 10/11/2023 6:05 AM [facility] BASOPHILS 1 % 10/11/2023 6:05 AM ENGINEERING TECHNICIAN PARKING [facility] NEUTROPHIL ABSOLUTE 5.90 1.90 - 7.00 K/uL 10/11/2023 6:05 AM [facility] LYMPHOCYTE ABSOLUTE 1.60 0.70 - 4.50 K/uL 10/11/2023 6:05 AM [facility] MONOCYTE ABSOLUTE 0.60 0.10 - 1.30 K/uL 10/11/2023 6:05 AM [facility] EOSINOPHIL ABSOLUTE 0.60 0.00 - 0.70 K/uL 10/11/2023 6:05 AM ENGINEERING TECHNICIAN PARKING [facility] BASOPHILS ABSOLUTE 0.10 0.00 - 0.20 K/uL 10/11/2023 6:05 AM [facility] Blood 10/11/2023 3:30 AM ENGINEERING TECHNICIAN PARKING 10/11/2023 5:43 AM ENGINEERING TECHNICIAN PARKING us Erik Chairez MD HEMATOLOGY ORDERABLES Final Resu lt [facility] CLIA# [id number] [place] [address] * (ABNORMAL) RENAL FUNCTION PANEL (10/11/2023 3:30 AM ENGINEERING TECHNICIAN PARKING) SODIUM 145 136 - 145 mmol/L 10/11/2023 6:28 AM [facility] POTASSIUM 4.0 3.4 - 5.1 mmol/L 10/11/2023 6:28 AM [facility] CHLORIDE 106 98 - 107 mmol/L 10/11/2023 6:28 AM [facility] CO2 26 22 - 29 mmol/L 10/11/2023 [...] 8 - 16 mmol/L 10/11/2023 6:28 AM ENGINEERING TECHNICIAN PARKING [facility] Blood 10/11/2023 3:30 AM ENGINEERING TECHNICIAN PARKING 10/11/2023 5:43 AM ENGINEERING TECHNICIAN PARKING Erik Chairez MD CHEMISTRY ORDERABLES Final Resul t [facility] CLIA# [id number] [address] [place] [address] documented in this encounter Visit Diagnoses Not on filedocumented in this encounter Additional Health Concerns Infection Onset Date Last Indicated Resolved Time CRE-CP Comment:10/09/23 Klebsiella pneumoniae, Sputum 10/09/2023 10/09/2023 05/28/2024 2:37 PM C DT Multi Drug Resistant Organis m (MDRO) Comment:10/09/23 Klebsiella pneumoniae, CRE-CP organism, Sputum 10/09/2023 10/09/2023 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
--- OUTSIDE RECORDS SUMMARY | 2025-03-09 13:25 | XMS_ITS | Encounter Summary ---
Author Organization [facility] Address [address] [place] [address] Care Team Providers Care V Belt Inspector Name Role Phone Unavailable Primary Care Provider Unavailabl e Encounter Details Date Type Department Care Team (Late st Contact Info) Description 11/01/2023 Lab Requisition [facility] [id number] [place] [address] [place] [id number] [place] [address] Social History Tobacco Use Types Packs/Day Years Used Date Smoking Tobacco: Never Assessed Sex and Gender Information Value Date Recorded Sex Assigned at Not on file Legal Sex Male 9:18 AM AIR CONDITIONING EQUIPMENT MECHANIC Gender Identity Not on file Sexual Orientation Not on file documented as of this encounter Plan of Treatment Not on file documented as of this encounter Procedures Procedure Name Priority Date/Time Associated Diagnosis Comments CBC WITH DIFFERENTIAL Routine 11/01/2023 4:20 AM AIR CONDITIONING EQUIPMENT MECHANIC BASIC METABOLIC PANEL Routine 11/01/2023 4:20 AM AIR CONDITIONING EQUIPMENT MECHANIC documented in this encounter Results * (ABNORMAL) CBC WITH DIFFERENTIAL (11/01/2023 4:20 AM AIR CONDITIONING EQUIPMENT MECHANIC) WBC 8.5 4.5 - 10.5 K/uL 11/01/2023 8:48 AM AIR CONDITIONING EQUIPMENT MECHANIC [facility] - [facility] RBC 3.87(L) 4.50 - 5.40 M/uL 11/01/2023 8:48 AM AIR CONDITIONING EQUIPMENT MECHANIC [facility] - [facility] HEMOGLOBIN 11.2(L) 13.6 - 16.5 g/dL 11/01/2023 8:48 AM AIR CONDITIONING EQUIPMENT MECHANIC [facility] - [facility] HEMATOCRIT 34.9(L) 40.0 - 48.0 % 11/01/2023 8:48 AM AIR CONDITIONING EQUIPMENT MECHANIC [facility] MCV 90.3 82.0 - 99.0 fL 11/01/2023 8:48 AM AIR CONDITIONING EQUIPMENT MECHANIC [facility] - [facility] MCH 29.0 27.8 - 34.5 pg 11/01/2023 8:48 AM AIR CONDITIONING EQUIPMENT MECHANIC [facility] MCHC 32.1(L) 32.5 - 35.5 g/dL 11/01/2023 8:48 AM AIR CONDITIONING EQUIPMENT MECHANIC [facility] RDW 17.0(H) 11.5 - 14.5 % 11/01/2023 8:48 AM AIR CONDITIONING EQUIPMENT MECHANIC [facility] PLATELETS 246 160 - 420 K/uL 11/01/2023 8:48 AM AIR CONDITIONING EQUIPMENT MECHANIC [facility] MPV 9.7 8.7 - 12.7 fL 11/01/2023 8:48 AM AIR CONDITIONING EQUIPMENT MECHANIC [facility] NEUTROPHILS 53 % 11/01/2023 8:48 AM AIR CONDITIONING EQUIPMENT MECHANIC [facility] LYMPHOCYTES 29 % 11/01/2023 8:48 AM AIR CONDITIONING EQUIPMENT MECHANIC [facility] MONOCYTES 7 % 11/01/2023 8:48 AM AIR CONDITIONING EQUIPMENT MECHANIC [facility] EOSINOPHILS 12 % 11/01/2023 8:48 AM AIR CONDITIONING EQUIPMENT MECHANIC [facility] BASOPHILS 1 % 11/01/2023 8:48 AM AIR CONDITIONING EQUIPMENT MECHANIC [facility] NEUTROPHIL ABSOLUTE 4.50 1.90 - 7.00 K/uL 11/01/2023 8:48 AM AIR CONDITIONING EQUIPMENT MECHANIC [facility] LYMPHOCYTE ABSOLUTE 2.40 0.70 - 4.50 K/uL 11/01/2023 8:48 AM AIR CONDITIONING EQUIPMENT MECHANIC [facility] MONOCYTE ABSOLUTE 0.60 0.10 - 1.30 K/uL 11/01/2023 8:48 AM AIR CONDITIONING EQUIPMENT MECHANIC [facility] EOSINOPHIL ABSOLUTE 1.00(H) 0.00 - 0.70 K/uL 11/01/2023 8:48 AM AIR CONDITIONING EQUIPMENT MECHANIC [facility] BASOPHILS ABSOLUTE 0.00 0.00 - 0.20 K/uL 11/01/2023 8:48 AM [facility] Blood Collection / Unknown 11/01/2023 4:20 AM AIR CONDITIONING EQUIPMENT MECHANIC 11/01/2023 7:57 AM AIR CONDITIONING EQUIPMENT MECHANIC Erik Chairez MD HEMATOLOGY ORDERABLES Final Resu lt [facility] CLIA# [id number] [place] [address] * (ABNORMAL) BASIC METABOLIC PANEL (11/01/2023 4:20 AM AIR CONDITIONING EQUIPMENT MECHANIC) SODIUM 139 136 - 145 mmol/L 11/01/2023 9:12 AM [facility] POTASSIUM 3.7 3.4 - 5.1 mmol/L 11/01/2023 9:12 AM [facility] CHLORIDE 100 98 - 107 mmol/L 11/01/2023 9:12 AM [facility] CO2 27 22 - 29 mmol/L 11/01/2023 9:12 AM [facility] CALCIUM 9.8 8.6 - 10.4 mg/dL 11/01/2023 9:12 AM [facility] BUN 41(H) 6 - 20 mg/dL 11/01/2023 9:12 AM [facility] CREATININE 0.93 0.67 - 1.17 mg/dL 11/01/2023 9:12 AM [facility] Comment:The GFR result is no t clinically significant on patients <18 or >70 years of age. GLUCOSE 109(H) 74 - 99 mg/dL 11/01/2023 9:12 AM [facility] GFR >60 mL/min/1.7 3 sq meter 11/01/2023 9:12 AM [facility] Comment:eGFR calculated with 2020 CKD-EPI equation. Vegetarian diet, extremely high or low muscle mass, and may affect results. Cystatin C with Glomerular Filtration Rate is a suitable alternative for these patients. ANION GAP 12 8 - 16 mmol/L 11/01/2023 9:12 AM AIR CONDITIONING EQUIPMENT MECHANIC [facility] Blood Collection / Unknown 11/01/2023 4:20 AM AIR CONDITIONING EQUIPMENT MECHANIC 11/01/2023 7:57 AM AIR CONDITIONING EQUIPMENT MECHANIC Erik Chairez MD CHEMISTRY ORDERABLES Final Resul t [facility] CLIA# [id number] [address] [place] [address] documented in this encounter Visit Diagnoses Not on filedocumented in this encounter Additional Health Concerns Infection Onset Date Last Indicated Resolved Time CRE-CP Comment:10/09/23 Klebsiella pneumoniae, Sputum 10/09/2023 10/09/2023 05/28/2024 2:37 PM C DT Multi Drug Resistant Organis m (MDRO) Comment:10/09/23 Klebsiella pneumoniae, CRE-CP organism, Sputum 10/09/2023 10/09/2023 PRODUCT MARKETING ENGINEER-CP Comment:10/09/23 Klebsiella pneumoniae, Sputum 10/09/2023 05/28/2024 documented as of this encounter
[2025-03-09 13:42] LABS: Add Urine Microscopic? YES; Appearance Urine Clear (Clear); Bacteria Urine None Seen /hpf; Bilirubin Urine Negative (Negative); Blood Urine Trace (Negative); Color Urine Yellow (Yellow); Glucose Urine UA Negative (Negative); Ketones Urine Negative (Negative); Leukocyte Esterase Ur Negative LEU/UL (Negative); Nitrate Urine Negative (Negative); Non Pathogenic Casts 0-2; Protein Urine Trace mg/dL (Negative); RBC Urine 0-2 /hpf (0-2); Squamous Epithelial Cell Urine None Seen /hpf (Few); Urobilinogen Urine 0.2 mg/dL (<2.0); WBC Urine 0-5 /hpf (0-3); pH Urine 5.5 (5.0-9.0)
[2025-03-09 13:53] LABS: Immature Reticulocyte Fraction 9.6 % (3.0-15.9); Reticulocyte Hemoglobin Conten 34.4 pg (28.2-36.6); Reticulocyte Percent 1.33 % (0.7-4.3); Reticulocytes Absolute 0.05 10^6/uL (0.02-0.10)
[2025-03-09 14:09] LABS: Albumin Level 4.2 g/dL (3.5-5.1); Anion Gap 10 mmol/L (4-12); Blood Urea Nitrogen 23 mg/dL (9-20); Calcium 9.4 mg/dL (8.4-10.2); Carbon Dioxide 25 mmol/L (22-30); Chloride 106 mmol/L (98-107); Estimated Glomerular Filt Rate 60; Glucose 109 mg/dL (65-110); Phosphorus 3.5 mg/dL (2.5-4.5); Sodium 141 mmol/L (137-145)
== END 2025-03-09 12:53 | disposition home or self-care (01) ==
LOC: ANHLAB 12:57
PROVIDERS: PCP Family Medicine; Visit Provider Internal Medicine Nephrology
DX: R80.9 Proteinuria, unspecified (principal); D64.9 Anemia, unspecified; N28.9 Disorder of kidney and ureter, unspecified
CPT/HCPCS: 36415; 80069; 81001; 85046

== ENCOUNTER 2025-04-05 12:57 | Emergency (ER) | payer MEDICARE, SELFPAY ==
[2025-04-05 13:12] VITALS: BP 125/70; PULSE 88; RESP 18; TEMP 36.7; O2SAT 100
--- NOTE | 2025-04-05 13:12 | ED_ITS ---
HPI - Skin/Abscess/Foreign Bdy General Chief complaint: Skin/Abscess/Foreign Body Stated complaint: Skin Issues Left Leg Time Seen by Provider: 04/05/25 13:12 Source: patient Mode of arrival: ambulatory Limitations: no limitations History of Present Illness HPI narrative: A 5-year-old male with a history of AFib, CAD/ CABG, presented for c/o left lower leg redness, warmth, and swelling worsening for almost 2 weeks. Pt states prior to onset he bumped it against a lawn ornament, but denies breaking the skin at that time. Currently denies pain, numbness, tingling or weakness of the leg. Denies cp, n/v/d/f/c. Related Data Home Medications ?Medication ?Instructions ?Recorded ?Confirmed ?Last Taken ?Type loratadine 10 mg tablet (Claritin) 10 mg PO DAILY 05/15/22 12/31/24 11/05/24 History rivaroxaban 20 mg tablet (Xarelto) 20 mg PO QPM 07/30/23 12/31/24 11/05/24 History simethicone 62.5 mg oral strips 1 strip PO BID 12/02/23 12/31/24 11/05/24 History (Gas-X) aspirin 81 mg chewable tablet 1 tablet PO DAILY 01/06/24 12/31/24 11/05/24 History docusate sodium 100 mg capsule 100 mg PO DAILY 03/25/24 12/31/24 11/05/24 History (Stool Softener) pyridoxine (vitamin B6) 100 mg 100 mg PO DAILY 03/25/24 12/31/24 11/05/24 History tablet levothyroxine 112 mcg tablet 112 mcg PO DAILY@0630 11/06/24 12/31/24 11/05/24 History hydrochlorothiazide 12.5 mg capsule mg 04/05/25 Unknown History losartan 25 mg tablet mg 04/05/25 Unknown History Allergies Allergy/AdvReac Type Severity Reaction Status Date / Time Zfmyoam-LJX-YzV Reductase Allergy Unknown Joint Pain Verified 04/05/25 13:27 Inhibitor (Xodgvpo-Zya-Ewk & MUSCLE Reductase Inhibitor) WEAKNESS diphenhydramine (From AdvReac Agitated Verified 04/05/25 13:27 Benadryl) halobetasol AdvReac Rash Verified 04/05/25 13:27 quetiapine (From Seroquel) AdvReac Agitated Verified 04/05/25 13:27 Review of Systems 2 Review of Systems: CONSTITUTIONAL: Denies body aches, fever, chills, or sweats. EYES: Denies visual changes, redness, or discharge. ENT: Denies rhinorrhea, congestion CARDIOVASCULAR: Denies chest pain, palpitations, or edema. RESPIRATORY: Denies cough or dyspnea. GASTROINTESTINAL: Denies abdominal pain, nausea, vomiting, or diarrhea. SKIN: per HPI MUSCULOSKELETAL: Denies back pain, joint pain, or myalgia. NEUROLOGIC: Denies headache, numbness, tingling, or weakness. [facility] Past Medical History Medical History Diarrhea Grade II diastolic dysfunction History of open sigmoidectomy Vitamin D deficiency, unspecified Paroxysmal atrial fibrillation Brain bleed Prostate CA Basal cell carcinoma Hepatitis B Prediabetes Hypothyroid Constipation GERD (gastroesophageal reflux disease) Hyperlipidemia Hypertension CAD (coronary artery disease) Myocardial infarct Seizures Surgical History Surgical History S/P hernia repair 08/02/2023 had open repair of right inguinal hernia due to 70% of the patient's small bowel contents being within the hernia, complicated by postoperative abscess requiring percutaneous drain, 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 The patient had postoperative shock and remained intubated for a prolonged period requiring tracheostomy and transfer to LTAC 10/09/2023 S/P percutaneous endoscopic gastrostomy (PEG) tube placement (09/25/23) With subsequent removal History of tracheostomy 09/13/2023 with subsequent removal History of colostomy Status post Willy procedure 09/04/23 Extensive (2 1/2 hrs) adhesiolysis, sigmoidectomy with end descending colostomy and Willy procedure Hx of local excision of skin lesion H/O arthroscopy lt knee H/O prostatectomy Hx of colonoscopy 2012 - Dr. Yen Hx of CABG 11/2009 - triple bypass surgery at [facility] Family History Family History Father Malignant neoplasm of prostate Sibling Ovarian cancer Mother , epilepsy No problems noted. Sibling No problems noted. Social History Social History Social History: Patient lives with his Cherie. He has a distant history of smoking a 12 pack per year history. He used to rarely drinks alcohol and only in moderation. Code status: Full code Surrogate decision maker: Sid () Smoking packs per day: 2 Smoking cigarettes per day: 40.0 Years smoked: 12 Smoking pack-years: 24.00 Smoking status: Former smoker Tobacco type: cigarettes Second hand tobacco smoke exposure: No Smoking end date: 09/23/70 Alcohol intake: never Alcohol use details: RARELY - 1/2 CASE BEER/YR Substance use: never Substance use type: does not use Do You Feel Safe in your Home?: Yes Lack of Transportation: No Lack of Food: Never True Current Housing: I Have Housing Concerned About Future Housing: No Difficulty Paying Gas/Electric Bills: No Difficulty Paying for Meds: No Currently Unemployed: No Education: High School Diploma/GED Difficulty w/ Childcare or Family Care: No Living arrangements: with family Occupation/Education: retired 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 Please see nursing chart for further information. There is no relevant family history pertinent to the presenting complaint Exam 2 Narrative: GENERAL: Well-appearing EYES: conjunctivae clear, and EOMI. ENT: Mucous membranes moist. Oropharynx without edema, erythema or lesions. NECK: Supple. No lymphadenopathy CHEST: Clear to auscultation. HEART: Irregular rate and rhythm. SKIN: Warm, dry. LLE with 3+ edema, erythema, and warmth c/w cellulitis. Negative martinez's sign. Endorses normal sensation and strength to the extremity. PPP. Skin to bilateral feet thaddeus and scaly. NEURO: Alert and oriented x3. Extrem: Upper/lower leg/hip images: 1. area c/w cellulitis 2. area c/w cellulitis Course Course Emergency Course: Patient is aware of diagnosis, understands and agrees to treatment plan. Anticipatory guidance given. Patient agrees to follow-up as directed and is aware of reasons to seek care at the emergency department. Portions of this record may have been created with voice recognition software Level of Care: Express Care Visit Vital Signs Vital signs: Reviewed MDM - Skin/Abscess/Foreign Bdy MDM Narrative Medical decision making narrative: Pt reports redness, swelling and warmth to the LLE, exam is c/w circumferential cellulitis to the LLE. Denies significant pain, VSS. Given medical history, Recommend ER transfer for further evaluation. Differential Diagnosis Differential diagnosis: Likely abscess of skin or subcutaneous tissue, viral exanthem, dermatophytosis, urticaria, herpes zoster, cellulitis, eczema, insect bites, impetigo, contact dermatitis and other (DVT, CHF, PVD, venous insufficiency, medication related, renal failure, gravitational edema) Discharge Plan Discharge Clinical Impression: Cellulitis Patient Disposition: Acute Care Hospital Condition: Stable Patient Language: Icelandic Prescriptions: No Action aspirin 81 mg tablet,chewable 1 tablet PO DAILY docusate sodium [Stool Softener] 100 mg capsule 100 mg PO DAILY pyridoxine (vitamin B6) 100 mg tablet 100 mg PO DAILY Gas-X 62.5 mg strip 1 strip PO BID Xarelto 20 mg Tablet 20 mg PO QPM Rx Instructions: must administer with evening meal loratadine [Claritin] 10 mg tablet 10 mg PO DAILY levothyroxine 112 mcg tablet 112 mcg PO DAILY@0630 vancomycin 125 mg capsule 125 mg PO DIRECTED Qty: 40 0RF Rx Instructions: take 125 mg 4 times per day for 10 days nystatin 100,000 unit/gram powder 1 applic topical TID Qty: 60 1RF famotidine 20 mg tablet 20 mg PO DAILY Qty: 90 1RF Follow-up/Referrals: Demond Stark MD [Primary Care Provider] - Time of Disposition: 13:31
== END 2025-04-05 13:40 | disposition short-term general hospital (02) ==
PROVIDERS: Emergency Provider Nurse Practitioner Family; PCP Family Medicine
DX: L03.116 Cellulitis of left lower limb (principal); I25.10 Atherosclerotic heart disease of native coronary artery without angina pectoris; I10 Essential (primary) hypertension; I48.0 Paroxysmal atrial fibrillation; R73.03 Prediabetes; E03.9 Hypothyroidism, unspecified; K21.9 Gastro-esophageal reflux disease without esophagitis; E78.5 Hyperlipidemia, unspecified; I25.2 Old myocardial infarction; Z85.46 Personal history of malignant neoplasm of prostate; Z85.828 Personal history of other malignant neoplasm of skin; Z90.79 Acquired absence of other genital organ(s); Z95.1 Presence of aortocoronary bypass graft; Z79.01 Long term (current) use of anticoagulants; Z79.82 Long term (current) use of aspirin; Z87.891 Personal history of nicotine dependence
CPT/HCPCS: 99212; G0463

== ENCOUNTER 2025-04-05 14:30 | Emergency (ER) | payer MEDICARE, SELFPAY ==
--- NOTE | ~2025-04-05 | XR_ITS ---
XR tibia fibula LT 2V Ordering provider: Selina Davies APRN History: . REDNESS AND SWELLING TO DISTAL 2/3 OF LOWER LEG . Comparison: None. FINDINGS: BONES: No acute fracture or dislocation. JOINT SPACES: Normal. SOFT TISSUES: Normal. IMPRESSION: No acute osseous abnormality left leg. Reviewed, dictated and finalized at location A.
--- NOTE | ~2025-04-05 | US_ITS ---
EXAMINATION: US venous doppler [facility] DATE: 04/05/2025 16:53 INDICATION: Lower limb swelling and fever TECHNIQUE: Grayscale ultrasound images without and with compression and Doppler ultrasound images of the left lower extremity veins were obtained. COMPARISON: 09/07/2023 FINDINGS: The visualized portions of left common femoral vein, profunda (deep) femoral vein, femoral vein, popl iteal vein, peroneal veins, posterior tibial veins, gastrocnemius vein and proximal to mid greater sa phenous vein are patent. There is a partially compressible tortuous vein in the subcutaneous tissues at the left calf, possibly the left lesser saphenous vein or more likely superficial varicosity. Ther e is a reticulated pattern of subcutaneous edema surrounding subcutaneous tissues. IMPRESSION: 1. No deep venous thrombosis in the left lower limb. 2. Nonocclusive thrombus within a tortuous vein in the subcutaneous tissues at the left calf possibly within the left lesser saphenous vein or more likely a superficial varicosity with surrounding edema suggestive of thrombophlebitis. Reviewed, dictated and finalized at location A. IMPRESSION: 1. No deep venous thrombosis in the left lower limb. 2. Nonocclusive thrombus within a tortuous vein in the subcutaneous tissues at the left calf possibly within the left lesser saphenous vein or more likely a s uperficial varicosity with surrounding edema suggestive of thrombophlebitis.
--- NOTE | ~2025-04-05 | XR_ITS ---
XR ankle LT min 3V Ordering provider: Selina Davies APRN History: . REDNESS AND SWELLING TO LEFT ANKLE/SCRATCHED LATERALLY 03/24 . Comparison: None. FINDINGS: BONES: No acute fracture or dislocation. JOINT SPACES: Lucency is seen in the medial dome of the talus may be degenerative. Otherwise, The ank le mortise is normal. SOFT TISSUES: Soft tissue swelling over the medial and lateral malleoli. IMPRESSION: No acute osseous abnormality left ankle. Reviewed, dictated and finalized at location A.
[2025-04-05 14:38] VITALS: BP 142/84; PULSE 93; RESP 20; TEMP 36.8; O2SAT 97
--- OUTSIDE RECORDS SUMMARY | 2025-04-05 16:06 | XMS_ITS | Encounter Summary ---
Author Organization [facility] Address [address] [place] [address] Care Team Providers Care Director Broadcast Name Role Phone Unavailable Primary Care Provider Unavailabl e Encounter Details Date Type Department Care Team (Late st Contact Info) Description 10/10/[address] [facility] [id number] [place] [address] [place] [address] [place] [address] Social History Tobacco Use Types Packs/Day Years Used Date Smoking Tobacco: Never Assessed Sex and Gender Information Value Date Recorded Sex Assigned at Not on file Legal Sex Male 9:18 AM PETROLOGIST Gender Identity Not on file Sexual Orientation Not on file documented as of this encounter Plan of Treatment Not on file documented as of this encounter Procedures Procedure Name Priority Date/Time Associated Diagnosis Comments CARBAPENEM RESISTANT ORGANISM Routine 10/09/2023 9:30 PM PETROLOGIST SPUTUM CULTURE WITH GRAM STAIN Routine 10/09/2023 9:30 PM PETROLOGIST documented in this encounter Results * (ABNORMAL) CARBAPENEM RESISTANT ORGANISM (10/09/2023 9:30 PM PETROLOGIST) ORGANISM TESTED Klebsiella pneumoniae 10/12/2023 4:25 PM PETROLOGIST [facility] Carbapenem Resistance Gene Detected(A) Not Detected 10/12/2023 4:25 PM PETROLOGIST [facility] KPC (carbapenem-re sistance gene) by PCR DETECTED(A) Not Detected 10/12/2023 4:25 PM PETROLOGIST [facility] Sputum Collection / Unknown 10/09/2023 9:30 PM PETROLOGIST 10/10/2023 9:54 AM PETROLOGIST [facility] - 10/12/2023 4:25 PM PETROLOGIST This isolate is a carbapenem-resistant Organism (REPORTING SPECIALIST) AND is a carbapenamase-digital content producer. If inpatient, place patient in Enhanced Contact Isolation. The [employer] Xpert Carba-R PCR assay detects the presence of KPC, NDM, VIM, OXA- 48, and IMP gene sequences that induce carbapenemase production in gram negative bacteria. This test was performed using an FDA approved screening methodology. Erik Chairez MD MICROBIOLOGY - GENERAL ORDERABLE S Final Result [facility]# [id number] [address] [place] [id number] * (ABNORMAL) SPUTUM CULTURE WITH GRAM STAIN (10/09/2023 9:30 PM PETROLOGIST) CULTURE KLEBSIELLA PNEUMONIAE(A) LUCINA MCG/ML 10/17/2023 10:47 AM PETROLOGIST [facility] [employer] [facility] Comment: This isolate is a Carbapenem-Resistant Organism AND is a carbapenemase digital content producer (REPORTING SPECIALIST-CP). If inpatient, place patient in Enhanced Contact Isolation. Multiple drug resistant organism (MDRO). CULTURE Absent Normal Shahrzad LUCINA MCG/ML 10/17/2023 10:47 AM [facility] [employer] [facility] GRAM STAIN Non diagnostic pattern LUCINA MCG/ML 10/17/2023 10:47 AM [facility] GRAM STAIN No WBC observed 10/17/2023 10:47 AM [facility] [employer] [facility] Sputum Collection / Unknown 10/09/2023 9:30 PM PETROLOGIST 10/10/2023 9:54 AM PETROLOGIST [facility] [employer] [facility] - 10/17/2023 10:47 AM PETROLOGIST Results called to Kelly Suarez RN, Rosalie [...] [facility] Co de Phone Number [facility]# [id number] [address] [place] [address] documented in this encounter Visit Diagnoses Not on filedocumented in this encounter Additional Health Concerns Infection Onset Date Last Indicated Resolved Time CRE-CP Comment:10/09/23 Klebsiella pneumoniae, Sputum 10/09/2023 10/09/2023 05/28/2024 2:37 PM C DT Multi Drug Resistant Organis m (MDRO) Comment:10/09/23 Klebsiella pneumoniae, CRE-CP organism, Sputum 10/09/2023 10/09/2023 REPORTING SPECIALIST-CP Comment:10/09/23 Klebsiella pneumoniae, Sputum 10/09/2023 05/28/2024 documented as of this encounter
--- OUTSIDE RECORDS SUMMARY | 2025-04-05 16:06 | XMS_ITS | Encounter Summary ---
Author Organization [facility] Address [address] [facility] [place] [address] Care Team Providers Care Library Supervisor Name Role Phone Demond Stark MD Primary Care Provider [phone] Encounter Details Date Type Department Care Team (Late Contact Info) Description 06/13/2023 Lab Requisition [facility] [address] [facility], [place] [address] Jaxon Anaya MD [address] [place], [place] [id number] Social History Tobacco Use Types Packs/Day Years Used Date Smoking Tobacco: Former Cigarettes Q uit: 09/23/1969 Smokeless Tobacco: Never Alcohol Use Standard Drinks/Week Comments Yes 0 (1 standard drink = 0.6 oz pur e alcohol) Sex and Gender Information Value Date Recorded Sex Assigned at Not on file Legal Sex Male 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 Gender Identity Not on file Sexual Orientation Not on file documented as of this encounter Plan of Treatment Upcoming Encounters Date Type Department Care Team (Late Contact Info) Description 04/29/2025 10:00 AM CDT Appointment [facility] DIAGNOSTIC RAD [address] [place] [phone] Callie Mendoza DO [address] [facility] 3RD FLOOR DOOR 1 [place] [address] 04/29/2025 1:00 PM CDT Office Visit [facility] - Neurology [address] [facility], [place] [address] Venus Mckinley, ENROLLMENT MANAGEMENT MANAGER-HOT DIMPLING MACHINE OPERATOR [address] [facility] 1L [place] [address] 02/04/2026 9:00 AM CDT Office Visit [facility] - GI [address] [facility], [place] [address] Callie Mendoza [address] [facility] 3RD FLOOR DOOR 1 [place] [address] documented as of this encounter Procedures Procedure Name Priority Date/Time Associated Diagnosis Comments DERMATOPATHOLOGY Routine 06/12/2023 12:0 0 AM CDT documented in this encounter Results * DERMATOPATHOLOGY (06/12/2023 12:00 AM CDT) Case Report Dermatopathology Report Case: [id number] Authorizing Provider: Jaxon Anaya MD Collected: 06/12/2023 12:00 AM Ordering Location: [facility] Received: 06/13/2023 01:28 PM Pathologist: [...] specimen consists of a shave biopsy measuring 47b64n2 mm. Jar 0. 3 3:42 PM CDT [...] characteristic determined by the Dermatopathology Laboratory at [facility], directed by Dr. Georgina Young. These tests need not be, and therefore are not, approved by the [place] Food and Drug Administration. The tests are used for clinical purposes. Billing Codes Specimen Charges Stain Charges 11034 1 84763 1 3 3:42 PM CDT DERMATOPATHOLOGY LABORATORY Embedded Images 3 3:42 PM CDT DERMATOPATHOLOGY LABORATORY Pathology/Cytolog y TISSUE SPECIMEN FROM SKIN / Unknown 06/12/2023 06/13/2023 1:28 PM CDT Jaxon Anaya MD LAB - PATHOLOGY/CYTOLOGY ORD ERABLES Final Result DERMATOPATHOLOGY LABORATORY [facility] Department of Dermatology [address], [address]rd Floor [address] [phone] documented in this encounter Visit Diagnoses Not on filedocumented in this encounter Care Teams Library Supervisor Relationship Specialty Start Date End Date Demond Stark MD [address] [place] [address] PCP - General 10/03/15 documented as of this encounter
--- OUTSIDE RECORDS SUMMARY | 2025-04-05 16:06 | XMS_ITS | Encounter Summary ---
Author Organization [facility] Address [address] [place] [address] Care Team Providers Care Weapons Officer Name Role Phone Demond Stark MD Primary Care Provider [phone] Encounter Details Date Type Department Care Team (Late Contact Info) Description 06/28/2023 Lab Requisition [facility] [address] 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, [place] [address] Venus Mckinley, MIXER OPERATOR HELPER HOT METAL-INTELLIGENCE SENIOR SERGEANT [address] [facility] 1L [place] [address] 02/04/2026 9:00 AM CDT Office Visit [facility] - GI [address] [facility], [place] [address] KellyCallie [address] [facility] 3RD FLOOR DOOR 1 [place] [address] documented as of this encounter Procedures Procedure Name Priority Date/Time Associated Diagnosis Comments DERMATOPATHOLOGY Routine 06/26/2023 12:0 0 AM CDT documented in this encounter Results * DERMATOPATHOLOGY (06/26/2023 12:00 AM CDT) Case Report Dermatopathology Report Case: [id number] Authorizing Provider: Jaxon Anaya MD Collected: 06/26/2023 12:00 AM Ordering Location: [facility] D[facility] Lab Received: 06/28/2023 09:48 AM [...] back.The specimen consists of an ellipse measuring 61b52q09 mm and is oriented with the suture/notch [...] characteristic determined by the Dermatopathology Laboratory at [facility], directed by Dr. Georgina oYung. These tests need not be, and therefore are not, approved by the [place] Food and Drug Administration. The tests are used for clinical purposes. Billing Codes Specimen Charges Stain Charges 28997 1 3 4:58 PM CDT DERMATOPATHOLOGY LABORATORY Embedded Images 3 4:58 PM CDT DERMATOPATHOLOGY LABORATORY Pathology/Cytolog y TISSUE SPECIMEN FROM SKIN / Unknown 06/26/2023 06/28/2023 9:48 AM CDT Jaxon Anaya MD LAB - PATHOLOGY/CYTOLOGY ORD ERABLES Final Result DERMATOPATHOLOGY LABORATORY [facility] - Department of Dermatology [facility] [address] [place] [address], [address] [phone] documented in this encounter Visit Diagnoses Not on filedocumented in this encounter Care Teams Weapons Officer Relationship Specialty Start Date End Date Demond Stark MD [address] [place] [address] PCP - General 10/03/15 documented as of this encounter
--- OUTSIDE RECORDS SUMMARY | 2025-04-05 16:06 | XMS_ITS | Encounter Summary ---
Author Organization [facility] Address [address] [facility] [address] [place] [address] Care Team Providers Care Dot Compliance Coordinator Name Role Phone Demond Stark MD Primary Care Provider [phone] Encounter Details Date Type Department Care Team (Late st Contact Info) Description 10/16/2016 Orders Only [facility] ProviderTaylor MD [address] [place], [place] [phone] Social History Tobacco Use Types Packs/Day Years Used Date Smoking Tobacco: Former Cigarettes Q uit: 09/23/1969 Alcohol Use Standard Drinks/Week Comments Yes 0 (1 standard drink = 0.6 oz pur e alcohol) Sex and Gender Information Value Date Recorded Sex Assigned at Not on file 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
--- OUTSIDE RECORDS SUMMARY | 2025-04-05 16:06 | XMS_ITS | Clinical Summary ---
Author Organization [facility] Address [address] [place] [address] Care Team Providers Care Vending Machine Technician Name Role Phone Demond Stark MD Primary Care Provider [phone] Encounters Date Type Department Care Team Description 03/31/2025 Orders Only [facility]. [address] [facility] [address] [place] [phone] Rula Caballero MA Hypertension (Primary Dx); Long-term drug therapy 03/10/2025 Documentation Only [facility]. [address] [facility] [address] [place] [address] Raúl Ross MD 03/02/2025 Orders Only [facility]. [address] [facility] [address] [place] [address] Rula Caballero MA Renal insufficiency (Primary Dx); Hypertension; Other proteinuria 03/02/2025 Orders Only [facility]. [address] [facility] [address] [place] [address] Rula Caballero MA Renal insufficiency (Primary [...] Diabetes: Visual Foot Exam 11/02/2024 Influenza Vaccine (#1) 2025 07/24/2010, 2009 Care Teams Vending Machine Technician Relationship Specialty Start Date End Date Demond Stark MD [address] [address] PCP - General Family Medicine 06/04/24
--- OUTSIDE RECORDS SUMMARY | 2025-04-05 16:06 | XMS_ITS | Clinical Summary ---
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 Gender Identity Not on file Sexual Orientation Not on file Plan of Treatment Health Maintenance Due Date Last Done Comments DTAP/TDAP/TD VACCINES (1 - Tdap) 02/21/1959 PNEUMOCOCCAL VACCINE 50+ YEARS (1 of 1 - PCV) 02/21/19 90 ZOSTER VACCINE (1 of 2) 02/21/1990 RSV VACCINE (60+ or ) (1 - 1-dose 75+ series) 02/21/2015 INFLUENZA VACCINE (#1) 2025 Additional Health Concerns Infection Onset Date Last Indicated 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
--- OUTSIDE RECORDS SUMMARY | 2025-04-05 16:06 | XMS_ITS | Continuity of Care Document ---
Author Organization [facility] Address [address] [place] [address] [place] [address] Phone Care Team Providers Care Sand Filler Name Role Phone Karsten Mason MD Unavailable Unavailable Procedures Procedure Date Office/outpatient Visit, [facility] Advance Directives Directive Yes / No Effective Date File Name No Information Encounters Encounter Description Practice Location Reason(s) For Visit Diagnoses Date Provider Providers Copied on Encounter Office/outpat ient Visit, [facility], [address] [place] [address] [address], [place], [place], [id number], [place] tel:[phone] [facility] No Information [phone] Isabella Shelley. [address] [facility], [place], [place], [id number], [place]. tel:[phone] Family History Family Member Type Diagnosis Age At Onset No Information Payers Payer name Insurance type Covered constitution party ID Authoriza tion(s) Medicare [facility] [id number] Social History Type Description Quantity Date Captured [...]
--- OUTSIDE RECORDS SUMMARY | 2025-04-05 16:06 | XMS_ITS | Clinical Summary ---
Author Organization [facility] Address [address] [facility] [place] [address] Care Team Providers Care Boat Detailer Name Role Phone Demond Stark MD Primary Care Provider [phone] Source Comments [facility],non-owned Affiliates and Associated Physician Practices is amultiple site organization consisting of ambulatory clinics and hospital sitesin [place], [place], [place] and [place]. This disclosure is being madepursuant to the Care Everywhere program and may not contain all information available regarding this patient. Last updated 18.[facility] Allergies Active Allergy Reactions Criticality Noted Date [...] 07/20/2013 Overview (01/01/2025): Hypertension Coronary arteriosclerosis in [place] artery 12/20 Overview (01/01/2025): IRENE MICHAELCL NGOC VSSL 2010: Non STEMI and CABG x3 (HOBSON to the LAD, sequential RA to OM and D1) History of coronary artery bypass surgery 2009 Overview (01/01/2025): AORTOCORONARY BYPASS Encounters Date Type Department Care Team Description 02/05/2025 8:30 AM CDT Office Visit [facility] - GI [address] [facility], [place] [address] Callie Mendoza DO Zenker's diverticulum (Primary Dx); Frailty; Aspiration pneumonia due to gastric secretions, unspecified laterality, unspecified part of lung (HCC); Clostridium difficile diarrhea; Presence of externally removable percutaneous endoscopic gastrostomy (PEG) tube (HCC) 02/05/2025 Travel from Last 3 Months Immunizations Immunization [...] and heating? Not hard at all 12/25/2024 [facility] of Occupat ional Health - Occupational Stress [...] any time in the past 12 m [facility], were you homeless or living in a chcf (including now)? 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 Gender Identity Not on file Sexual [...] Care Team (Late st Contact Info) Description 04/29/2025 10:00 AM CDT Appointment [facility] DIAGNOSTIC RAD [address] [place] [address] Callie Mendoza DO [address] [facility] 3[address] FLO[address] DO[address] 1 [place] [address] 04/29/2025 1:00 PM CDT Office Visit [facility]rology [address] [place] [address], [place] [address] Arlen Syedciara, FUEL TESTING TECHNICIAN-GREASE WORKER [address] [facility] 1L [place] [address] 02/04/2026 9:00 AM CDT Office Visit [facility] - GI [address] [place] [address], [place] [address] Calile Mendoza DO [address] [facility] 3RD FLOOR DOOR 1 [place] [address] Health Maintenance Due Date Last Done Comments MEDICARE AWV 12 MONTHS 1940 DTAP/TDAP/TD VACCINES (1 - Tdap) 02/21/1959 PNEUMOCOCCAL VACCINE 50+ (1 of 2 - PCV) 02/21/1959 ZOSTER VACCINE (1 of 2) 02/21/1990 Respiratory Syncytial Virus (RSV) Vaccine Pt: or over 60 yrs (1 - 1-dose 75+ series) 02/21/2015 COVID-19 VACCINE ( - 2023-2 5 season) 2024 DEPRESSION SCREENING 09/23/2024 INFLUENZA VACCINE (#1) 2025 07/24/2010 HEPATITIS B VACCINE Aged Out No longe [...] General On track( 025 8:41 AM CDT) Yohana Gomez RN Note: Expected end date: Working on plan Nutritional status is maintained or improving. Interventions: Take nutritional supplements as ordered Collaborate with the clinical stage builder Oral care Use soft toothbrushes Keep hydrated Insurance [facility]IC[facility] Advance Directives * Full Code (Latest Code Status on File) Date Activated Date Inactivated Comments 12/22/2024 4:39 PM 12/25/2024 7:01 PM Care Teams Boat Detailer Relationship Specialty Start Date End Date Demond Stark MD [address] [place] [address] PCP - General 10/03/15
--- OUTSIDE RECORDS SUMMARY | 2025-04-05 16:07 | XMS_ITS | Encounter Summary ---
Author Organization [facility] Address [address] [place] [address] Care Team Providers Care Public Speaking Instructor Name Role Phone Unavailable Primary Care Provider Unavailabl e Encounter Details Date Type Department Care Team (Late st Contact Info) Description 10/17/2023 Lab Requisition [facility] Services [address] [place] [address] [place] [address] [place] [address] Social History Tobacco Use Types Packs/Day Years Used Date Smoking Tobacco: Never Assessed Sex and Gender Information Value Date Recorded Sex Assigned at Not on file Legal Sex Male 9:18 AM SCRATCH BRUSHER Gender Identity Not on file Sexual Orientation Not on file documented as of this encounter Plan of Treatment Not on file documented as of this encounter Procedures Procedure Name Priority Date/Time Associated Diagnosis Comments CBC WITH DIFFERENTIAL Routine 10/17/2023 2:15 AM SCRATCH BRUSHER MAGNESIUM LEVEL Routine 10/17/2023 2:15 AM SCRATCH BRUSHER RENAL FUNCTION PANEL Routine 10/17/2023 2:15 AM SCRATCH BRUSHER documented in this encounter Results * MAGNESIUM LEVEL (10/17/2023 2:15 AM SCRATCH BRUSHER) MAGNESIUM 2.3 1.6 - 2.6 mg/dL 10/17/2023 9:56 AM SCRATCH BRUSHER [facility] Blood Collection / Unknown 10/17/2023 2:15 AM SCRATCH BRUSHER 10/17/2023 9:00 AM SCRATCH BRUSHER Erik Chairez MD CHEMISTRY ORDERABLES Final Resul t [facility] CLIA# [id number] [address] [place] [address] * (ABNORMAL) CBC WITH DIFFERENTIAL (10/17/2023 2:15 AM SCRATCH BRUSHER) WBC 6.7 4.5 - 10.5 K/uL 10/17/2023 9:34 AM SCRATCH BRUSHER [facility] RBC 3.73(L) 4.50 - 5.40 M/uL 10/17/2023 9:34 AM SCRATCH BRUSHER [facility] HEMOGLOBIN 11.1(L) 13.6 - 16.5 g/dL 10/17/2023 9:34 AM SCRATCH BRUSHER [facility] HEMATOCRIT 35.0(L) 40.0 - 48.0 % 10/17/2023 9:34 AM SCRATCH BRUSHER [facility] MCV 93.8 82.0 - 99.0 fL 10/17/2023 9:34 AM SCRATCH BRUSHER [facility] MCH 29.8 27.8 - 34.5 pg 10/17/2023 9:34 AM SCRATCH BRUSHER [facility] MCHC 31.8(L) 32.5 - 35.5 g/dL 10/17/2023 9:34 AM SCRATCH BRUSHER [facility] RDW 17.4(H) 11.5 - 14.5 % 10/17/2023 9:34 AM SCRATCH BRUSHER [facility] PLATELETS 214 160 - 420 K/uL 10/17/2023 9:34 AM SCRATCH BRUSHER [facility] MPV 9.5 8.7 - 12.7 fL 10/17/2023 9:34 AM SCRATCH BRUSHER [facility] NEUTROPHILS 50 % 10/17/2023 9:34 AM SCRATCH BRUSHER [facility] LYMPHOCYTES 28 % 10/17/2023 9:34 AM SCRATCH BRUSHER [facility] MONOCYTES 8 % 10/17/2023 9:34 AM SCRATCH BRUSHER [facility] EOSINOPHILS 13 % 10/17/2023 9:34 AM SCRATCH BRUSHER [facility] BASOPHILS 0 % 10/17/2023 9:34 AM SCRATCH BRUSHER [facility] NEUTROPHIL ABSOLUTE 3.40 1.90 - 7.00 K/uL 10/17/2023 9:34 AM SCRATCH BRUSHER [facility] LYMPHOCYTE ABSOLUTE 1.90 0.70 - 4.50 K/uL 10/17/2023 9:34 AM SCRATCH BRUSHER [facility] MONOCYTE ABSOLUTE 0.50 0.10 - 1.30 K/uL 10/17/2023 9:34 AM SCRATCH BRUSHER [facility] EOSINOPHIL ABSOLUTE 0.90(H) 0.00 - 0.70 K/uL 10/17/2023 9:34 AM SCRATCH BRUSHER [facility] BASOPHILS ABSOLUTE 0.00 0.00 - 0.20 K/uL 10/17/2023 9:34 AM SCRATCH BRUSHER [facility] Blood Collection / Unknown 10/17/2023 2:15 AM SCRATCH BRUSHER 10/17/2023 9:00 AM SCRATCH BRUSHER us Erik Chairez MD HEMATOLOGY ORDERABLES Final Resu lt [facility] CLIA# [id number] [address] [place] [address] * (ABNORMAL) RENAL FUNCTION PANEL (10/17/2023 2:15 AM SCRATCH BRUSHER) SODIUM 137 136 - 145 mmol/L 10/17/2023 9:56 AM [facility] [employer] [facility] POTASSIUM 4.0 3.4 - 5.1 mmol/L 10/17/2023 9:56 AM [facility] LABORATORY [facility] CHLORIDE 99 98 - 107 mmol/L 10/17/2023 9:56 AM [facility] [employer] [facility] CO2 23 22 - 29 mmol/L 10/17/2023 9:56 AM [facility] [employer] [facility] CALCIUM 9.2 8.6 - 10.4 mg/dL 10/17/2023 9:56 AM [facility] [employer] [facility] BUN 42(H) 6 - 20 mg/dL 10/17/2023 9:56 AM [facility] CREATININE 1.00 0.67 - 1.17 mg/dL 10/17/2023 9:56 AM [facility] Comment:The GFR result is no t clinically significant on patients <18 or >70 years of age. GLUCOSE 72(L) 74 - 99 mg/dL 10/17/2023 9:56 AM [facility] ALBUMIN 3.2(L) 3.5 - 5.2 g/dL 10/17/2023 9:56 AM [facility] PHOSPHORUS 2.9 2.5 - 4.5 mg/dL 10/17/2023 9:56 AM [facility] GFR >60 mL/min/1.7 3 sq meter 10/17/2023 9:56 AM [facility] Comment:eGFR calculated with 2020 CKD-EPI equation. Vegetarian diet, extremely high or low muscle mass, and may affect results. Cystatin C with Glomerular Filtration Rate is a suitable alternative for these patients. 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
--- OUTSIDE RECORDS SUMMARY | 2025-04-05 16:07 | XMS_ITS | Encounter Summary ---
Author Organization [facility] Address [address] [place] [address] Care Team Providers Care Cloth Bleaching Range Back Tender Name Role Phone Unavailable Primary Care Provider Unavailabl e Encounter Details Date Type Department Care Team (Late st Contact Info) Description 11/07/2023 Lab Requisition [facility] Laboratory Services [address] [place] [address] [place] [id number] [place] [address] Social History Tobacco Use Types Packs/Day Years Used Date Smoking Tobacco: Never Assessed Sex and Gender Information Value Date Recorded Sex Assigned at Not on file Legal Sex Male 9:18 AM DIE SINKING MACHINE OPERATOR Gender Identity Not on file Sexual Orientation Not on file documented as of this encounter Plan of Treatment Not on file documented as of this encounter Procedures Procedure Name Priority Date/Time Associated Diagnosis Comments CBC WITH DIFFERENTIAL Routine 11/07/2023 4:30 AM DIE SINKING MACHINE OPERATOR BASIC METABOLIC PANEL Routine 11/07/2023 4:30 AM DIE SINKING MACHINE OPERATOR documented in this encounter Results * (ABNORMAL) CBC WITH DIFFERENTIAL (11/07/2023 4:30 AM DIE SINKING MACHINE OPERATOR) WBC 9.4 4.5 - 10.5 K/uL 11/07/2023 8:10 AM DIE SINKING MACHINE OPERATOR [facility] RBC 4.06(L) 4.50 - 5.40 M/uL 11/07/2023 8:10 AM DIE SINKING MACHINE OPERATOR [facility] HEMOGLOBIN 11.9(L) 13.6 - 16.5 g/dL 11/07/2023 8:10 AM DIE SINKING MACHINE OPERATOR [facility] HEMATOCRIT 37.1(L) 40.0 - 48.0 % 11/07/2023 8:10 AM DIE SINKING MACHINE OPERATOR [facility] MCV 91.5 82.0 - 99.0 fL 11/07/2023 8:10 AM DIE SINKING MACHINE OPERATOR [facility] MCH 29.4 27.8 - 34.5 pg 11/07/2023 8:10 AM DIE SINKING MACHINE OPERATOR [facility] MCHC 32.1(L) 32.5 - 35.5 g/dL 11/07/2023 8:10 AM DIE SINKING MACHINE OPERATOR [facility] RDW 16.9(H) 11.5 - 14.5 % 11/07/2023 8:10 AM DIE SINKING MACHINE OPERATOR [facility] PLATELETS 270 160 - 420 K/uL 11/07/2023 8:10 AM DIE SINKING MACHINE OPERATOR [facility] MPV 10.0 8.7 - 12.7 fL 11/07/2023 8:10 AM DIE SINKING MACHINE OPERATOR [facility] NEUTROPHILS 61 % 11/07/2023 8:10 AM DIE SINKING MACHINE OPERATOR [facility] LYMPHOCYTES 21 % 11/07/2023 8:10 AM DIE SINKING MACHINE OPERATOR [facility] MONOCYTES 6 % 11/07/2023 8:10 AM DIE SINKING MACHINE OPERATOR [facility] EOSINOPHILS 11 % 11/07/2023 8:10 AM DIE SINKING MACHINE OPERATOR [facility] BASOPHILS 1 % 11/07/2023 8:10 AM DIE SINKING MACHINE OPERATOR [facility] NEUTROPHIL ABSOLUTE 5.70 1.90 - 7.00 K/uL 11/07/2023 8:10 AM DIE SINKING MACHINE OPERATOR [facility] LYMPHOCYTE ABSOLUTE 2.00 0.70 - 4.50 K/uL 11/07/2023 8:10 AM DIE SINKING MACHINE OPERATOR [facility] MONOCYTE ABSOLUTE 0.60 0.10 - 1.30 K/uL 11/07/2023 8:10 AM DIE SINKING MACHINE OPERATOR [facility] EOSINOPHIL ABSOLUTE 1.00(H) 0.00 - 0.70 K/uL 11/07/2023 8:10 AM DIE SINKING MACHINE OPERATOR [facility] BASOPHILS ABSOLUTE 0.10 0.00 - 0.20 K/uL 11/07/2023 8:10 AM [facility] Blood 11/07/2023 4:30 AM DIE SINKING MACHINE OPERATOR 11/07/2023 8:06 AM DIE SINKING MACHINE OPERATOR us Erik Chairez MD HEMATOLOGY ORDERABLES Final Resu lt [facility] CLIA# [id number] [address] [place] [address] * (ABNORMAL) BASIC METABOLIC PANEL (11/07/2023 4:30 AM DIE SINKING MACHINE OPERATOR) SODIUM 137 136 - 145 mmol/L 11/07/2023 8:41 AM [facility] POTASSIUM 4.2 3.4 - 5.1 mmol/L 11/07/2023 8:41 AM [facility] CHLORIDE 100 98 - 107 mmol/L 11/07/2023 8:41 AM [facility] CO2 22 22 - 29 mmol/L 11/07/2023 8:41 AM [facility] CALCIUM 9.9 8.6 - 10.4 mg/dL 11/07/2023 8:41 AM [facility] BUN 41(H) 6 - 20 mg/dL 11/07/2023 8:41 AM [facility] CREATININE 1.03 0.67 - 1.17 mg/dL 11/07/2023 8:41 AM [facility] Comment:The GFR result is no t clinically significant on patients <18 or >70 years of age. GLUCOSE 109(H) 74 - 99 mg/dL 11/07/2023 8:41 AM [facility] GFR >60 mL/min/1.7 3 sq meter 11/07/2023 8:41 AM [facility] Comment:eGFR calculated with 2020 CKD-EPI equation. Vegetarian diet, extremely high or low muscle mass, and may affect results. Cystatin C with Glomerular Filtration Rate is a suitable alternative for these patients. 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
--- OUTSIDE RECORDS SUMMARY | 2025-04-05 16:07 | XMS_ITS | Encounter Summary ---
Author Organization [facility] Address [address] [place] [address] Care Team Providers Care Slip Tender Name Role Phone Unavailable Primary Care Provider Unavailabl e Encounter Details Date Type Department Care Team (Late st Contact Info) Description 11/01/2023 Lab Requisition [facility] Laboratory Services [address] [place] [address] [place] [address] [place] [address] Social History Tobacco Use Types Packs/Day Years Used Date Smoking Tobacco: Never Assessed Sex and Gender Information Value Date Recorded Sex Assigned at Not on file Legal Sex Male 9:18 AM SEAMAN Gender Identity Not on file Sexual Orientation Not on file documented as of this encounter Plan of Treatment Not on file documented as of this encounter Procedures Procedure Name Priority Date/Time Associated Diagnosis Comments CBC WITH DIFFERENTIAL Routine 11/01/2023 4:20 AM SEAMAN BASIC METABOLIC PANEL Routine 11/01/2023 4:20 AM SEAMAN documented in this encounter Results * (ABNORMAL) CBC WITH DIFFERENTIAL (11/01/2023 4:20 AM SEAMAN) WBC 8.5 4.5 - 10.5 K/uL 11/01/2023 8:48 AM SEAMAN [facility] - [facility] RBC 3.87(L) 4.50 - 5.40 M/uL 11/01/2023 8:48 AM SEAMAN [facility] - [facility] HEMOGLOBIN 11.2(L) 13.6 - 16.5 g/dL 11/01/2023 8:48 AM SEAMAN [facility] - [facility] HEMATOCRIT 34.9(L) 40.0 - 48.0 % 11/01/2023 8:48 AM SEAMAN [facility] MCV 90.3 82.0 - 99.0 fL 11/01/2023 8:48 AM SEAMAN [facility] - [facility] MCH 29.0 27.8 - 34.5 pg 11/01/2023 8:48 AM SEAMAN [facility] MCHC 32.1(L) 32.5 - 35.5 g/dL 11/01/2023 8:48 AM SEAMAN [facility] RDW 17.0(H) 11.5 - 14.5 % 11/01/2023 8:48 AM SEAMAN [facility] PLATELETS 246 160 - 420 K/uL 11/01/2023 8:48 AM SEAMAN [facility] MPV 9.7 8.7 - 12.7 fL 11/01/2023 8:48 AM SEAMAN [facility] NEUTROPHILS 53 % 11/01/2023 8:48 AM SEAMAN [facility] LYMPHOCYTES 29 % 11/01/2023 8:48 AM SEAMAN [facility] SERVICES [facility] MONOCYTES 7 % 11/01/2023 8:48 AM SEAMAN [facility] SERVICES [facility] EOSINOPHILS 12 % 11/01/2023 8:48 AM SEAMAN [facility] BASOPHILS 1 % 11/01/2023 8:48 AM SEAMAN [facility] NEUTROPHIL ABSOLUTE 4.50 1.90 - 7.00 K/uL 11/01/2023 8:48 AM SEAMAN [facility] LYMPHOCYTE ABSOLUTE 2.40 0.70 - 4.50 K/uL 11/01/2023 8:48 AM SEAMAN [facility] SERVICES [facility] MONOCYTE ABSOLUTE 0.60 0.10 - 1.30 K/uL 11/01/2023 8:48 AM SEAMAN [facility] SERVICES [facility] EOSINOPHIL ABSOLUTE 1.00(H) 0.00 - 0.70 K/uL 11/01/2023 8:48 AM SEAMAN [facility] BASOPHILS ABSOLUTE 0.00 0.00 - 0.20 K/uL 11/01/2023 8:48 AM [facility] Blood Collection / Unknown 11/01/2023 4:20 AM SEAMAN 11/01/2023 7:57 AM SEAMAN Erik Chairez MD HEMATOLOGY ORDERABLES Final Resu lt [facility] CLIA# [id number] [address] [place] [address] * (ABNORMAL) BASIC METABOLIC PANEL (11/01/2023 4:20 AM SEAMAN) SODIUM 139 136 - 145 mmol/L 11/01/2023 [...] 8 - 16 mmol/L 11/01/2023 9:12 AM SEAMAN [facility] Blood Collection / Unknown 11/01/2023 4:20 AM SEAMAN 11/01/2023 7:57 AM SEAMAN Erik Chairez MD CHEMISTRY ORDERABLES Final Resul t [facility] CLIA# [id number] [address] [place] [address] documented in this encounter Visit Diagnoses Not on filedocumented in this encounter Additional Health Concerns Infection Onset Date Last Indicated Resolved Time 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
--- OUTSIDE RECORDS SUMMARY | 2025-04-05 16:07 | XMS_ITS | Encounter Summary ---
Author Organization [facility] Address [address] [place] [address] Care Team Providers Care Virginia Line Attendant Name Role Phone Unavailable Primary Care Provider Unavailabl e Encounter Details Date Type Department Care Team (Late st Contact Info) Description 10/14/2023 Lab Requisition [facility] Laboratory Services [address] [place] [address] [place] [address] [place] [address] Social History Tobacco Use Types Packs/Day Years Used Date Smoking Tobacco: Never Assessed Sex and Gender Information Value Date Recorded Sex Assigned at Not on file Legal Sex Male 9:18 AM ANIMAL PHYSIOLOGIST Gender Identity Not on file Sexual Orientation Not on file documented as of this encounter Plan of Treatment Not on file documented as of this encounter Procedures Procedure Name Priority Date/Time Associated Diagnosis Comments CBC WITH DIFFERENTIAL Routine 10/14/2023 2:35 AM ANIMAL PHYSIOLOGIST TRIGLYCERIDE Routine 10/14/2023 2:35 AM ANIMAL PHYSIOLOGIST PHOSPHORUS Routine 10/14/2023 2:35 AM ANIMAL PHYSIOLOGIST MAGNESIUM LEVEL Routine 10/14/2023 2:35 AM ANIMAL PHYSIOLOGIST COMPREHENSIVE METABOLIC PANEL Routine 10/14/2023 2:35 AM ANIMAL PHYSIOLOGIST documented in this encounter Results * (ABNORMAL) TRIGLYCERIDE (10/14/2023 2:35 AM ANIMAL PHYSIOLOGIST) TRIGLYCERIDE 161(H) <150 mg/dL 10/14/2023 8:26 AM ANIMAL PHYSIOLOGIST [facility] Blood Collection / Unknown 10/14/2023 2:35 AM ANIMAL PHYSIOLOGIST 10/14/2023 7:22 AM ANIMAL PHYSIOLOGIST Narrative [facility] - 10/14/2023 8:26 AM ANIMAL PHYSIOLOGIST TRIGLYCERIDES mg/dL Normal < 150 Borderline High 150 - 199 High 200 - 499 Very High >= 500 Based on AHA/NCEP Guidelines. us Erik Chairez MD CHEMISTRY ORDERABLES Final Resul t Performing Organization Address City/[facility]/ZIP Co de Phone Number [facility] CLIA# [id number] [place] [address] * PHOSPHORUS (10/14/2023 2:35 AM ANIMAL PHYSIOLOGIST) PHOSPHORUS 3.4 2.5 - 4.5 mg/dL 10/14/2023 8:26 AM ANIMAL PHYSIOLOGIST [facility] Blood Collection / Unknown 10/14/2023 2:35 AM ANIMAL PHYSIOLOGIST 10/14/2023 7:22 AM ANIMAL PHYSIOLOGIST us Erik Chairez MD CHEMISTRY ORDERABLES Final Resul t Performing Organization Address City/[facility] Co de Phone Number [facility]# [id number] [place] [address] * MAGNESIUM LEVEL (10/14/2023 2:35 AM ANIMAL PHYSIOLOGIST) MAGNESIUM 2.5 1.6 - 2.6 mg/dL 10/14/2023 8:26 AM ANIMAL PHYSIOLOGIST [facility] 5app [facility] Blood Collection / Unknown 10/14/2023 2:35 AM ANIMAL PHYSIOLOGIST 10/14/2023 7:22 AM ANIMAL PHYSIOLOGIST us Erik Chairez MD CHEMISTRY ORDERABLES Final Resul t Performing Organization Address City/[facility]/ZIP Co de Phone Number [facility]# [id number] [address] [place] [address] * (ABNORMAL) CBC WITH DIFFERENTIAL (10/14/2023 2:35 AM ANIMAL PHYSIOLOGIST) [facility] WBC 9.2 4.5 - 10.5 K/uL 10/14/2023 8:02 AM [facility] RBC 3.58(L) 4.50 - 5.40 M/uL 10/14/2023 8:02 AM [facility] HEMOGLOBIN 11.0(L) 13.6 - 16.5 g/dL 10/14/2023 8:02 AM [facility] HEMATOCRIT 33.5(L) 40.0 - 48.0 % 10/14/2023 8:02 AM [facility] MCV 93.6 82.0 - 99.0 fL 10/14/2023 8:02 AM [facility] MCH 30.6 27.8 - 34.5 pg 10/14/2023 8:02 AM [facility] [employer] [facility] MCHC 32.7 32.5 - 35.5 g/dL 10/14/2023 8:02 AM [facility] [employer] [facility] RDW 17.7(H) 11.5 - 14.5 % 10/14/2023 8:02 AM [facility] PLATELETS 214 160 - 420 K/uL 10/14/2023 8:02 AM [facility] [employer] [facility] MPV 9.2 8.7 - 12.7 fL 10/14/2023 8:02 AM [facility] [facility] NEUTROPHILS 58 % 10/14/2023 8:02 AM [facility] LYMPHOCYTES 24 % 10/14/2023 8:02 AM [facility] MONOCYTES 8 % 10/14/2023 8:02 AM ANIMAL PHYSIOLOGIST [facility] LAB[facility] EOSINOPHILS 9 % 10/14/2023 8:02 AM [facility] BASOPHILS 0 % 10/14/2023 8:02 AM [facility] NEUTROPHIL ABSOLUTE 5.40 1.90 - 7.00 K/uL 10/14/2023 8:02 AM [facility] [employer] [facility] LYMPHOCYTE ABSOLUTE 2.20 0.70 - 4.50 K/uL 10/14/2023 8:02 AM [facility] LABORAT[facility] MONOCYTE ABSOLUTE 0.70 0.10 - 1.30 K/uL 10/14/2023 8:02 AM [facility] EOSINOPHIL ABSOLUTE 0.90(H) 0.00 - 0.70 K/uL 10/14/2023 8:02 AM [facility] BASOPHILS ABSOLUTE 0.00 0.00 - 0.20 K/uL 10/14/2023 8:02 AM [facility] Blood Collection / Unknown 10/14/2023 2:35 AM ANIMAL PHYSIOLOGIST 10/14/2023 7:22 AM ANIMAL PHYSIOLOGIST Erik Chairez MD HEMATOLOGY ORDERABLES Final Resu lt [facility] CLIA# [id number] [address] [place] [address] * (ABNORMAL) COMPREHENSIVE METABOLIC PANEL (10/14/2023 2:35 AM ANIMAL PHYSIOLOGIST) SODIUM 135(L) 136 - 145 mmol/L 10/14/2023 8:26 AM [facility] POTASSIUM 4.0 3.4 - 5.1 mmol/L 10/14/2023 8:26 AM [facility] CHLORIDE 97(L) 98 - 107 mmol/L 10/14/2023 8:26 AM [facility] CO2 24 22 - 29 mmol/L 10/14/2023 8:26 AM [facility] CALCIUM 9.5 8.6 - 10.4 mg/dL 10/14/2023 8:26 AM [facility] BUN 36(H) 6 - 20 mg/dL 10/14/2023 8:26 AM [facility] CREATININE 1.18(H) 0.67 - 1.17 mg/dL 10/14/2023 8:26 AM [facility] Comment:The GFR result is no t clinically significant on patients <18 or >70 years of age. GLUCOSE 84 74 - 99 mg/dL 10/14/2023 8:26 AM [facility] TOTAL PROTEIN 7.4 6.3 - 8.7 g/dL 10/14/2023 8:26 AM [facility] ALBUMIN 3.6 3.5 - 5.2 g/dL 10/14/2023 8:26 AM [facility] BILIRUBIN TOTAL 0.6 0.2 - 1.1 mg/dL 10/14/2023 8:26 AM [facility] ALKALINE PHOSPHATASE 99 40 - 150 U/L 10/14/2023 8:26 AM [facility] AST 22 0 - 41 U/L 10/14/2023 8:26 AM [facility] ALT 16 0 - 41 U/L 10/14/2023 8:26 AM [facility] GFR >60 mL/min/1.7 3 sq meter 10/14/2023 8:26 AM [facility] Comment:eGFR calculated with 2020 CKD-EPI equation. Vegetarian diet, extremely high or low muscle mass, and may affect results. Cystatin C with Glomerular Filtration Rate is a suitable alternative for these patients. 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
--- OUTSIDE RECORDS SUMMARY | 2025-04-05 16:07 | XMS_ITS | Encounter Summary ---
Author Organization [facility] Address [address] [place] [address] Care Team Providers Care Ui Programmer Name Role Phone Unavailable Primary Care Provider Unavailabl e Encounter Details Date Type Department Care Team (Late st Contact Info) Description 10/20/2023 Lab Requisition [facility] Laboratory Services [address] [place] [address] [place] [address] [place] [address] Social History Tobacco Use Types Packs/Day Years Used Date Smoking Tobacco: Never Assessed Sex and Gender Information Value Date Recorded Sex Assigned at Not on file Legal Sex Male 9:18 AM ACCOUNTS ADJUSTABLE CLERK Gender Identity Not on file Sexual Orientation Not on file documented as of this encounter Plan of Treatment Not on file documented as of this encounter Procedures Procedure Name Priority Date/Time Associated Diagnosis Comments CBC WITH DIFFERENTIAL Routine 10/20/2023 2:20 AM ACCOUNTS ADJUSTABLE CLERK BASIC METABOLIC PANEL Routine 10/20/2023 2:20 AM ACCOUNTS ADJUSTABLE CLERK documented in this encounter Results * (ABNORMAL) CBC WITH DIFFERENTIAL (10/20/2023 2:20 AM ACCOUNTS ADJUSTABLE CLERK) WBC 8.3 4.5 - 10.5 K/uL 10/20/2023 5:25 AM ACCOUNTS ADJUSTABLE CLERK [facility] LABORATORY SERVICES - [facility] RBC 3.82(L) 4.50 - 5.40 M/uL 10/20/2023 5:25 AM ACCOUNTS ADJUSTABLE CLERK [facility] LABORATORY [facility] - [facility] HEMOGLOBIN 11.2(L) 13.6 - 16.5 g/dL 10/20/2023 5:25 AM ACCOUNTS ADJUSTABLE CLERK [facility] LABORATORY SERVICES - [facility] HEMATOCRIT 35.0(L) 40.0 - 48.0 % 10/20/2023 5:25 AM ACCOUNTS ADJUSTABLE CLERK [facility] LABORATORY SERVICES [facility] MCV 91.6 82.0 - 99.0 fL 10/20/2023 5:25 AM ACCOUNTS ADJUSTABLE CLERK [facility] LABORATORY SERVICES - [facility] MCH 29.4 27.8 - 34.5 pg 10/20/2023 5:25 AM ACCOUNTS ADJUSTABLE CLERK [facility] LABORATORY SERVICES [facility] MCHC 32.1(L) 32.5 - 35.5 g/dL 10/20/2023 5:25 AM ACCOUNTS ADJUSTABLE CLERK [facility] LABORATORY SERVICES - [facility] RDW 17.4(H) 11.5 - 14.5 % 10/20/2023 5:25 AM ACCOUNTS ADJUSTABLE CLERK [facility] - [facility] PLATELETS 255 160 - 420 K/uL 10/20/2023 5:25 AM ACCOUNTS ADJUSTABLE CLERK [facility] MPV 9.4 8.7 - 12.7 fL 10/20/2023 5:25 AM ACCOUNTS ADJUSTABLE CLERK [facility] - [facility] NEUTROPHILS 60 % 10/20/2023 5:25 AM ACCOUNTS ADJUSTABLE CLERK [facility] - [facility] LYMPHOCYTES 23 % 10/20/2023 5:25 AM ACCOUNTS ADJUSTABLE CLERK [employer] LABORATORY SERVICES [facility] MONOCYTES 6 % 10/20/2023 5:25 AM ACCOUNTS ADJUSTABLE CLERK [facility] EOSINOPHILS 11 % 10/20/2023 5:25 AM ACCOUNTS ADJUSTABLE CLERK [facility] BASOPHILS 1 % 10/20/2023 5:25 AM ACCOUNTS ADJUSTABLE CLERK [facility] NEUTROPHIL ABSOLUTE 4.90 1.90 - 7.00 K/uL 10/20/2023 5:25 AM ACCOUNTS ADJUSTABLE CLERK [facility] LYMPHOCYTE ABSOLUTE 1.90 0.70 - 4.50 K/uL 10/20/2023 5:25 AM ACCOUNTS ADJUSTABLE CLERK [employer] LABORATORY SERVICES [facility] MONOCYTE ABSOLUTE 0.50 0.10 - 1.30 K/uL 10/20/2023 5:25 AM ACCOUNTS ADJUSTABLE CLERK [facility] EOSINOPHIL ABSOLUTE 0.90(H) 0.00 - 0.70 K/uL 10/20/2023 5:25 AM ACCOUNTS ADJUSTABLE CLERK [facility] BASOPHILS ABSOLUTE 0.00 0.00 - 0.20 K/uL 10/20/2023 5:25 AM [facility] Blood 10/20/2023 2:20 AM ACCOUNTS ADJUSTABLE CLERK 10/20/2023 5:15 AM ACCOUNTS ADJUSTABLE CLERK Erik Chairez MD HEMATOLOGY ORDERABLES Final Resu lt [facility] CLIA# [id number] [place] [address] * (ABNORMAL) BASIC METABOLIC PANEL (10/20/2023 2:20 AM ACCOUNTS ADJUSTABLE CLERK) SODIUM 140 136 - 145 mmol/L 10/20/2023 5:53 AM [facility] POTASSIUM 3.8 3.4 - 5.1 mmol/L 10/20/2023 5:53 AM [facility] CHLORIDE 101 98 - 107 mmol/L 10/20/2023 5:53 AM [facility] CO2 26 22 - 29 mmol/L 10/20/2023 5:53 AM [facility] CALCIUM 9.6 8.6 - 10.4 mg/dL 10/20/2023 5:53 AM [facility] BUN 30(H) 6 - 20 mg/dL 10/20/2023 5:53 AM [facility] CREATININE 0.89 0.67 - 1.17 mg/dL 10/20/2023 5:53 AM [facility] Comment:The GFR result is no t clinically significant on patients <18 or >70 years of age. GLUCOSE 110(H) 74 - 99 mg/dL 10/20/2023 5:53 AM [facility] GFR >60 mL/min/1.7 3 sq meter 10/20/2023 5:53 AM [facility] Comment:eGFR calculated with 2020 CKD-EPI equation. Vegetarian diet, extremely high or low muscle mass, and may affect results. Cystatin C with Glomerular Filtration Rate is a suitable alternative for these patients. 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
--- OUTSIDE RECORDS SUMMARY | 2025-04-05 16:07 | XMS_ITS | Encounter Summary ---
Author Organization [facility] Address [address] [place] [address] Care Team Providers Care Field Merchandiser Name Role Phone Unavailable Primary Care Provider Unavailabl e Encounter Details Date Type Department Care Team (Late st Contact Info) Description 11/10/2023 Lab Requisition [facility] Laboratory Services [address] [place] [address] [place] [address] [place] [address] Social History Tobacco Use Types Packs/Day Years Used Date Smoking Tobacco: Never Assessed Sex and Gender Information Value Date Recorded Sex Assigned at Not on file Legal Sex Male 9:18 AM PATROL SERGEANT SHERIFF'S OFFICE Gender Identity Not on file Sexual Orientation Not on file documented as of this encounter Plan of Treatment Not on file documented as of this encounter Procedures Procedure Name Priority Date/Time Associated Diagnosis Comments CBC WITH DIFFERENTIAL Routine 11/10/2023 6:10 AM PATROL SERGEANT SHERIFF'S OFFICE BASIC METABOLIC PANEL Routine 11/10/2023 6:10 AM PATROL SERGEANT SHERIFF'S OFFICE documented in this encounter Results * (ABNORMAL) CBC WITH DIFFERENTIAL (11/10/2023 6:10 AM PATROL SERGEANT SHERIFF'S OFFICE) WBC 7.9 4.5 - 10.5 K/uL 11/10/2023 6:55 AM PATROL SERGEANT SHERIFF'S OFFICE [facility] LABORATORY SERVICES - [facility] RBC 3.65(L) 4.50 - 5.40 M/uL 11/10/2023 6:55 AM PATROL SERGEANT SHERIFF'S OFFICE [facility] LABORATORY [facility] HEMOGLOBIN 10.8(L) 13.6 - 16.5 g/dL 11/10/2023 6:55 AM PATROL SERGEANT SHERIFF'S OFFICE [facility] LABORATORY SERVICES - [facility] HEMATOCRIT 33.6(L) 40.0 - 48.0 % 11/10/2023 6:55 AM PATROL SERGEANT SHERIFF'S OFFICE [facility] LABORATORY SERVICES [facility] MCV 92.0 82.0 - 99.0 fL 11/10/2023 6:55 AM PATROL SERGEANT SHERIFF'S OFFICE [facility] LABORATORY SERVICES [facility] MCH 29.7 27.8 - 34.5 pg 11/10/2023 6:55 AM PATROL SERGEANT SHERIFF'S OFFICE [facility] LABORATORY SERVICES [facility] MCHC 32.2(L) 32.5 - 35.5 g/dL 11/10/2023 6:55 AM PATROL SERGEANT SHERIFF'S OFFICE [facility] LABORATORY SERVICES [facility] RDW 17.0(H) 11.5 - 14.5 % 11/10/2023 6:55 AM PATROL SERGEANT SHERIFF'S OFFICE [facility] LABORATORY SERVICES [facility] PLATELETS 251 160 - 420 K/uL 11/10/2023 6:55 AM PATROL SERGEANT SHERIFF'S OFFICE [facility] MPV 9.2 8.7 - 12.7 fL 11/10/2023 6:55 AM PATROL SERGEANT SHERIFF'S OFFICE [facility] LABORATORY SERVICES [facility] NEUTROPHILS 62 % 11/10/2023 6:55 AM PATROL SERGEANT SHERIFF'S OFFICE [facility] LABORATORY SERVICES [facility] LYMPHOCYTES 22 % 11/10/2023 6:55 AM PATROL SERGEANT SHERIFF'S OFFICE [facility] MONOCYTES 5 % 11/10/2023 6:55 AM PATROL SERGEANT SHERIFF'S OFFICE [facility] EOSINOPHILS 10 % 11/10/2023 6:55 AM PATROL SERGEANT SHERIFF'S OFFICE [facility] BASOPHILS 1 % 11/10/2023 6:55 AM PATROL SERGEANT SHERIFF'S OFFICE [facility] LABORATORY SERVICES [facility] NEUTROPHIL ABSOLUTE 4.90 1.90 - 7.00 K/uL 11/10/2023 6:55 AM PATROL SERGEANT SHERIFF'S OFFICE [facility] LABORATORY SERVICES [facility] LYMPHOCYTE ABSOLUTE 1.70 0.70 - 4.50 K/uL 11/10/2023 6:55 AM PATROL SERGEANT SHERIFF'S OFFICE [facility] LABORATORY SERVICES [facility] MONOCYTE ABSOLUTE 0.40 0.10 - 1.30 K/uL 11/10/2023 6:55 AM PATROL SERGEANT SHERIFF'S OFFICE [facility] LABORATORY SERVICES [facility] EOSINOPHIL ABSOLUTE 0.80(H) 0.00 - 0.70 K/uL 11/10/2023 6:55 AM PATROL SERGEANT SHERIFF'S OFFICE [facility] SERVICES [facility] BASOPHILS ABSOLUTE 0.10 0.00 - 0.20 K/uL 11/10/2023 6:55 AM [facility] Blood 11/10/2023 6:10 AM PATROL SERGEANT SHERIFF'S OFFICE 11/10/2023 6:41 AM PATROL SERGEANT SHERIFF'S OFFICE Erik Chairez MD HEMATOLOGY ORDERABLES Final Resu lt [facility] CLIA# [id number] [address] [place] [address] * (ABNORMAL) BASIC METABOLIC PANEL (11/10/2023 6:10 AM PATROL SERGEANT SHERIFF'S OFFICE) SODIUM 139 136 - 145 mmol/L 11/10/2023 7:14 AM [facility] POTASSIUM 4.2 3.4 - 5.1 mmol/L 11/10/2023 7:14 AM [facility] CHLORIDE 103 98 - 107 mmol/L 11/10/2023 7:14 AM [facility] CO2 26 22 - 29 mmol/L 11/10/2023 7:14 AM [facility] CALCIUM 9.4 8.6 - 10.4 mg/dL 11/10/2023 7:14 AM [facility] BUN 39(H) 6 - 20 mg/dL 11/10/2023 7:14 AM [facility] CREATININE 0.98 0.67 - 1.17 mg/dL 11/10/2023 7:14 AM [facility] Comment:The GFR result is no t clinically significant on patients <18 or >70 years of age. GLUCOSE 111(H) 74 - 99 mg/dL 11/10/2023 7:14 AM [facility] GFR >60 mL/min/1.7 3 sq meter 11/10/2023 7:14 AM [facility] Comment:eGFR calculated with 2020 CKD-EPI equation. Vegetarian diet, extremely high or low muscle mass, and may affect results. Cystatin C with Glomerular Filtration Rate is a suitable alternative for these patients. ANION GAP 10 8 - 16 mmol/L 11/10/2023 7:14 AM PATROL SERGEANT SHERIFF'S OFFICE [facility] LABORATORY SERVICES [facility] Blood 11/10/2023 6:10 AM PATROL SERGEANT SHERIFF'S OFFICE 11/10/2023 6:41 AM PATROL SERGEANT SHERIFF'S OFFICE Erik Chairez MD CHEMISTRY ORDERABLES Final Resul t [facility] LABORATORY [facility] CLIA# [id number] [place] [address] documented in this encounter Visit Diagnoses Not on filedocumented in this encounter Additional Health Concerns Infection Onset Date Last Indicated Resolved Time 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
--- OUTSIDE RECORDS SUMMARY | 2025-04-05 16:07 | XMS_ITS | Referral Summary ---
Author Organization [facility] Building [facility] Address [address] [place] [address] Care Team Providers Care Greenstone Polisher Operator Name Role Phone Demond Stark MD Primary Care Provider [phone] Encounters Date Type Department Care Team Description 03/16/2025 Orders Only [facility] Medical [facility] Cardiology [address] [facility] [address] [place] [phone] ProviderTaylor MD 03/16/2025 2:30 PM CDT Office Visit [facility] Cardiology [address] [facility] [address] [place] [phone] Mando Luna MD Persistent atrial fibrillation (HCC) (Primary Dx); 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; Chronic anticoagulation; Nonrheumatic aortic (valve) stenosis; Cardiomyopathy, unspecified type (HCC) 03/01/2025 Telephone [facility] Cardiology [address] [place] [address] [address] [place] [phone] Mando Luna MD 01/19/2025 Telephone [facility] Cardiology [address] [facility] [address] [place] [address] Mando Luna MD from Last 3 Months Allergies Active Allergy Reactions Criticality Noted Date Comments Diphenhydramine Hallucinations Medium 11/27/2023 Was not able to sleep and made him more anxious Lisinopril Cough Low Reaction: Cough, Pravastatin Muscle pain Medium Reaction: Muscular Pain, Quetiapine Other (See comments) Low 06/05/2024 Hallucinations, insomnia Simvastatin Muscle pain Medium Reaction: Muscular Pain, Bfhwjjo-Fpe-Atj Reductase Inhibitors Muscle pain,Other (See comments) Medium 10/03/2015 Pt reports leg weakness/heavine ss when taking zocor. Medications levothyroxine (SYNTHROID) 112 mcg tablet Take 1 tablet (112 mcg total) by mouth sleeping car porter before breakfast Active aspirin 81 mg tablet Take 1 tablet (81 mg total) by mouth daily Active famotidine (PEPCID) 20 mg tablet Take 1 tablet (20 mg total) by mouth nightly as needed 11/26/19 24 Active docusate sodium (DOK) 100 mg tabletIndications:co nstipation Take 1 tablet (100 mg total) by [...] (10 mg total) by mouth daily Active carbidopa-levodopa (SINEMET) 25-100 mg per tablet Take 1 tablet by mouth 3 (three) times a day Active ciprofloxacin (CILOXAN) 0.3 % ophthalmic solution 5 drops into Right EAR, NOT EYE, twice daily for 5 days 09/22/20 24 Active rivaroxaban (Xarelto) 20 mg tablet TAKE 1 TABLET BY MOUTH ONCE DAILY WITH DINNER 90 tablet 1 03/01/20 25 Active losartan (COZAAR) 50 mg tabletIndications:Co ronary arteriosclerosis in quileute artery,Cardiomyopath y, unspecified type (HCC) Take 1 tablet (50 mg total) by mouth daily 90 tablet 3 03/16/20 25 026 Active losartan (COZAAR) 25 mg tablet Take 1 tablet (25 mg total) by mouth daily 30 tablet 11 01/20/20 25 025 Discontin ued(Dupli mahogany order) Active Problems Problem Noted Date Diagnosed Date Cardiomyopathy 03/16/2025 Nonrheumatic aortic (valve) stenosis 03/16/2025 Dysfunction of right eustachian tube 08/31/2024 Assessment & Plan (10/05/2024 10:54 AM SOCIAL INSURANCE ANALYST): Avoid ear cleaning techniques Avoid water to ears Follow up in 9 months for right ear tube check, earlier with ear drainage Assessment & Plan (08/31/2024 11:40 AM SOCIAL INSURANCE ANALYST): Right myringotomy with T-tube placement Risks and [...] 07/09/2024 Assessment & Plan (08/31/2024 11:39 AM SOCIAL INSURANCE ANALYST): Right myringotomy with T-tube placement Risks and [...] 08/07/2017 Assessment & Plan (08/07/2017 6:01 PM SOCIAL INSURANCE ANALYST): Has had elevated LFTs and a fatty liver. Bradycardia 08/07/2017 Assessment & Plan (08/07/2017 5:58 PM SOCIAL INSURANCE ANALYST): Asymptomatic bradycardia, on low-dose metoprolol which may eventually need to be reduced or discontinued. Traumatic subdural hematoma of neuraxis 10/15/19 17 Overview (12/28/2016): Traumatic subdural hematoma without loss of consciousness, sequela Statin intolerance 10/15/2016 Overview (12/28/2016): Statin intolerance Essential hypertension 07/20/2013 Overview (12/28/2016): Hypertension Assessment & Plan (08/07/2017 5:57 PM SOCIAL INSURANCE ANALYST): Hypertension is not under good control; reviewing [...] HYPERLIPIDEMIA Assessment & Plan (08/07/2017 6:03 PM SOCIAL INSURANCE ANALYST): Has refued further attempts at statin therapy. 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 12/20 Overview (08/07/2017): [facility] 2009: Non STEMI and CABG x3 (HOBSON to the LAD, sequential RA to OM and D1) Assessment & Plan (08/07/2017 6:00 PM SOCIAL INSURANCE ANALYST): 2009: Non STEMI and CABG x3 (HOBSON [...] 03/04/2018 Assessment & Plan (08/07/2017 5:58 PM SOCIAL INSURANCE ANALYST): Patient is going to have knee surgery [...] on file Legal Sex Male 8:49 AM SOCIAL INSURANCE ANALYST Gender Identity Not on file Sexual Orientation Not on file Last Filed Vital Signs Vital Sign Reading Time Taken Comments Blood Pressure 138/70 03/16/2025 2:40 PM CDT Pulse 88 03/16/2025 2:40 PM CDT Temperature 36.3 C (97.4 F) 09/22/2024 1:04 PM SOCIAL INSURANCE ANALYST Respiratory Rate 18 09/22/2024 1:04 PM SOCIAL INSURANCE ANALYST Oxygen Saturation 97% 03/16/2025 2:40 PM CDT Inhaled Oxygen Concentration - - Weight 97.1 kg (214 lb) 03/16/2025 2:40 PM CDT Height 185.4 cm (6' 1) 03/16/2025 2:40 PM CDT Body Mass Index 28.23 03/16/2025 2:40 PM CDT Plan of Treatment Not on file Medical Devices Implanted Type Area Glass Forming Crew Member Device Identifier Shelf Expiration Date Model / Serial / Lot [employer] 1.32mm 4.8mm Modify Ear T Tube Ventilation Ultrasil Sterile Blue [id number] - [id number] Implanted:Qty: 1 on 09/22/2024 by Laura Oakes DO at [facility] Right: Ear [employer] 07/13/2034 [id number] / / [id number] Insurance MEDICARE MEDICARE [facility] MEDICARE SUPPLEMENT Care Teams Greenstone Polisher Operator Relationship Specialty Start Date End Date Demond Stark MD PCP - General 07/23/11
--- OUTSIDE RECORDS SUMMARY | 2025-04-05 16:07 | XMS_ITS | Encounter Summary ---
Author Organization [facility] Address [address] [place] [address] Care Team Providers Care Flight Test Supervisor Name Role Phone Unavailable Primary Care Provider Unavailabl e Encounter Details Date Type Department Care Team (Late st Contact Info) Description 10/11/2023 Lab Requisition [facility] Laboratory Services [address] [place] [address] [place] [address] [address] Social History Tobacco Use Types Packs/Day Years Used Date Smoking Tobacco: Never Assessed Sex and Gender Information Value Date Recorded Sex Assigned at Not on file Legal Sex Male 9:18 AM VERTICAL ROLL OPERATOR Gender Identity Not on file Sexual Orientation Not on file documented as of this encounter Plan of Treatment Not on file documented as of this encounter Procedures Procedure Name Priority Date/Time Associated Diagnosis Comments CBC WITH DIFFERENTIAL Routine 10/11/2023 3:30 AM VERTICAL ROLL OPERATOR TRIGLYCERIDE Routine 10/11/2023 3:30 AM VERTICAL ROLL OPERATOR MAGNESIUM LEVEL Routine 10/11/2023 3:30 AM VERTICAL ROLL OPERATOR RENAL FUNCTION PANEL Routine 10/11/2023 3:30 AM VERTICAL ROLL OPERATOR documented in this encounter Results * (ABNORMAL) TRIGLYCERIDE (10/11/2023 3:30 AM VERTICAL ROLL OPERATOR) TRIGLYCERIDE 192(H) <150 mg/dL 10/11/2023 6:28 AM VERTICAL ROLL OPERATOR [facility] LABORATORY SERVICES [facility] Blood 10/11/2023 3:30 AM VERTICAL ROLL OPERATOR 10/11/2023 5:43 AM VERTICAL ROLL OPERATOR Narrative [facility] [employer] [facility] - 10/11/2023 6:28 AM VERTICAL ROLL OPERATOR TRIGLYCERIDES mg/dL Normal < 150 Borderline High 150 - 199 High 200 - 499 Very High >= 500 Based on AHA/NCEP Guidelines. Erik Chairez MD CHEMISTRY ORDERABLES Final Resul t Performing Organization Address City/[facility]/ZIP Co de Phone Number [facility] CLIA# [id number] [place] [address] * MAGNESIUM LEVEL (10/11/2023 3:30 AM VERTICAL ROLL OPERATOR) MAGNESIUM 2.2 1.6 - 2.6 mg/dL 10/11/2023 6:28 AM [facility] Blood 10/11/2023 3:30 AM VERTICAL ROLL OPERATOR 10/11/2023 5:43 AM VERTICAL ROLL OPERATOR Erik Chairez MD CHEMISTRY ORDERABLES Final Resul t Performing Organization Address City/[facility]/ZIP Co de Phone Number [facility] CLIA# [id number] [place] [address] * (ABNORMAL) CBC WITH DIFFERENTIAL (10/11/2023 3:30 AM VERTICAL ROLL OPERATOR) WBC 8.8 4.5 - 10.5 K/uL 10/11/2023 6:05 AM [facility] [employer] [facility] RBC 3.43(L) 4.50 - 5.40 M/uL 10/11/2023 6:05 AM [facility] [employer] [facility] HEMOGLOBIN 10.5(L) 13.6 - 16.5 g/dL 10/11/2023 6:05 AM [facility] HEMATOCRIT 32.7(L) 40.0 - 48.0 % 10/11/2023 6:05 AM [facility] MCV 95.4 82.0 - 99.0 fL 10/11/2023 6:05 AM [facility] MCH 30.7 27.8 - 34.5 pg 10/11/2023 6:05 AM [facility] LABORATORY [facility] MCHC 32.2(L) 32.5 - 35.5 g/dL 10/11/2023 6:05 AM [facility] LABORATORY [facility] RDW 18.7(H) 11.5 - 14.5 % 10/11/2023 6:05 AM [facility] LABORATORY [facility] PLATELETS 218 160 - 420 K/uL 10/11/2023 6:05 AM [facility] LABORATORY [facility] MPV 9.3 8.7 - 12.7 fL 10/11/2023 6:05 AM VERTICAL ROLL OPERATOR [facility] LABORATORY SERVICES [facility] NEUTROPHILS 67 % 10/11/2023 6:05 AM VERTICAL ROLL OPERATOR [facility] LABORATORY SERVICES [facility] LYMPHOCYTES 18 % 10/11/2023 6:05 AM VERTICAL ROLL OPERATOR [facility] LABORATORY SERVICES [facility] MONOCYTES 7 % 10/11/2023 6:05 AM VERTICAL ROLL OPERATOR [facility] LABORATORY [facility] EOSINOPHILS 7 % 10/11/2023 6:05 AM [facility] LABORATORY [facility] BASOPHILS 1 % 10/11/2023 6:05 AM VERTICAL ROLL OPERATOR [facility] LABORATORY [facility] NEUTROPHIL ABSOLUTE 5.90 1.90 - 7.00 K/uL 10/11/2023 6:05 AM [facility] LABORATORY [facility] LYMPHOCYTE ABSOLUTE 1.60 0.70 - 4.50 K/uL 10/11/2023 6:05 AM [facility] LABORATORY [facility] MONOCYTE ABSOLUTE 0.60 0.10 - 1.30 K/uL 10/11/2023 6:05 AM [facility] LABORATORY [facility] EOSINOPHIL ABSOLUTE 0.60 0.00 - 0.70 K/uL 10/11/2023 6:05 AM VERTICAL ROLL OPERATOR [facility] LABORATORY [facility] BASOPHILS ABSOLUTE 0.10 0.00 - 0.20 K/uL 10/11/2023 6:05 AM [facility] LABORATORY [facility] Blood 10/11/2023 3:30 AM VERTICAL ROLL OPERATOR 10/11/2023 5:43 AM VERTICAL ROLL OPERATOR us Erik Chairez MD HEMATOLOGY ORDERABLES Final Resu lt [facility] CLIA# [id number] [address] [place] [address] * (ABNORMAL) RENAL FUNCTION PANEL (10/11/2023 3:30 AM VERTICAL ROLL OPERATOR) SODIUM 145 136 - 145 mmol/L 10/11/2023 6:28 AM [facility] [employer] [facility] POTASSIUM 4.0 3.4 - 5.1 mmol/L 10/11/2023 6:28 AM [facility] CHLORIDE 106 98 - 107 mmol/L 10/11/2023 6:28 AM [facility] CO2 26 22 - 29 mmol/L 10/11/2023 6:28 AM [facility] CALCIUM 9.3 8.6 - 10.4 mg/dL 10/11/2023 6:28 AM [facility] BUN 38(H) 6 - 20 mg/dL 10/11/2023 6:28 AM [facility] CREATININE 1.38(H) 0.67 - 1.17 mg/dL 10/11/2023 6:28 AM [facility] Comment:The GFR result is no t clinically significant on patients <18 or >70 years of age. GLUCOSE 85 74 - 99 mg/dL 10/11/2023 6:28 AM [facility] ALBUMIN 3.4(L) 3.5 - 5.2 g/dL 10/11/2023 6:28 AM [facility] PHOSPHORUS 3.9 2.5 - 4.5 mg/dL 10/11/2023 6:28 AM [facility] GFR 51 mL/min/1.7 3 sq meter 10/11/2023 6:28 AM [facility] Comment:eGFR calculated with 2020 CKD-EPI equation. Vegetarian diet, extremely high or low muscle mass, and may affect results. Cystatin C with Glomerular Filtration Rate is a suitable alternative for these patients. ANION GAP 13 8 - 16 mmol/L 10/11/2023 6:28 AM VERTICAL ROLL OPERATOR [facility] LABORATORY [facility] Blood 10/11/2023 3:30 AM VERTICAL ROLL OPERATOR 10/11/2023 5:43 AM VERTICAL ROLL OPERATOR Erik Chairez MD CHEMISTRY ORDERABLES Final Resul t [facility] LABOR[facility] CLIA# [id number] [address] [place] [address] documented in this encounter Visit Diagnoses Not on filedocumented in this encounter Additional Health Concerns Infection Onset Date Last Indicated Resolved Time CRE-CP Comment:10/09/23 Klebsiella pneumoniae, Sputum 10/09/2023 10/09/2023 05/28/2024 2:37 PM C DT Multi Drug Resistant Organis m (MDRO) Comment:10/09/23 Klebsiella pneumoniae, CRE-CP organism, Sputum 10/09/2023 10/09/2023 COOK HELPER MEAT-CP Comment:10/09/23 Klebsiella pneumoniae, Sputum 10/09/2023 05/28/2024 documented as of this encounter
--- OUTSIDE RECORDS SUMMARY | 2025-04-05 16:07 | XMS_ITS | Encounter Summary ---
Author Organization [facility] Address [address] [place] [address] Care Team Providers Care Senior Mainframe Developer Name Role Phone Unavailable Primary Care Provider Unavailabl e Encounter Details Date Type Department Care Team (Late st Contact Info) Description 10/13/2023 Lab Requisition [facility] Laboratory Services [address] [place] [address] [place] [address] [place] [address] Social History Tobacco Use Types Packs/Day Years Used Date Smoking Tobacco: Never Assessed Sex and Gender Information Value Date Recorded Sex Assigned at Not on file Legal Sex Male 9:18 AM STEEL CONSTRUCTION WORKER Gender Identity Not on file Sexual Orientation Not on file documented as of this encounter Plan of Treatment Not on file documented as of this encounter Procedures Procedure Name Priority Date/Time Associated Diagnosis Comments MAGNESIUM LEVEL Routine 10/13/2023 4:00 AM STEEL CONSTRUCTION WORKER RENAL FUNCTION PANEL Routine 10/13/2023 4:00 AM STEEL CONSTRUCTION WORKER documented in this encounter Results * MAGNESIUM LEVEL (10/13/2023 4:00 AM STEEL CONSTRUCTION WORKER) MAGNESIUM 2.3 1.6 - 2.6 mg/dL 10/13/2023 5:59 AM STEEL CONSTRUCTION WORKER [facility] [employer] [facility] Blood Collection / Unknown 10/13/2023 4:00 AM STEEL CONSTRUCTION WORKER 10/13/2023 5:20 AM STEEL CONSTRUCTION WORKER us Erik Chairez MD CHEMISTRY ORDERABLES Final [facility]ul t [id number] [place] [address] * (ABNORMAL) RENAL FUNCTION PANEL (10/13/2023 4:00 AM STEEL CONSTRUCTION WORKER) SODIUM 138 136 - 145 mmol/L 10/13/2023 5:58 AM [facility] POTASSIUM 4.5 3.4 - 5.1 mmol/L 10/13/2023 5:58 AM [facility] CHLORIDE 100 98 - 107 mmol/L 10/13/2023 5:58 AM [facility] CO2 25 22 - 29 mmol/L 10/13/2023 5:58 AM [facility] CALCIUM 9.6 8.6 - 10.4 mg/dL 10/13/2023 5:58 AM [facility] BUN 39(H) 6 - 20 mg/dL 10/13/2023 5:58 AM [facility] CREATININE 1.09 0.67 - 1.17 mg/dL 10/13/2023 5:58 AM [facility] Comment:The GFR result is no t clinically significant on patients <18 or >70 years of age. GLUCOSE 100(H) 74 - 99 mg/dL 10/13/2023 5:58 AM [facility] ALBUMIN 3.5 3.5 - 5.2 g/dL 10/13/2023 5:58 AM [facility] PHOSPHORUS 4.8(H) 2.5 - 4.5 mg/dL 10/13/2023 5:58 AM [facility] GFR >60 mL/min/1.7 3 sq meter 10/13/2023 5:58 AM [facility] Comment:eGFR calculated with 2020 CKD-EPI equation. Vegetarian diet, extremely high or low muscle mass, and may affect results. Cystatin C with Glomerular Filtration Rate is a suitable alternative for these patients. ANION GAP 13 8 - 16 mmol/L 10/13/2023 5:58 AM [facility] Blood Collection / Unknown 10/13/2023 4:00 AM STEEL CONSTRUCTION WORKER 10/13/2023 5:20 AM STEEL CONSTRUCTION WORKER Erik Chairez MD CHEMISTRY ORDERABLES Final Resul t [facility] LABOR[facility]ORY SERVICES [facility] CLIA# [id number] [place] [address] documented in this encounter Visit Diagnoses Not on filedocumented in this encounter Additional Health Concerns Infection Onset Date Last Indicated Resolved Time CRE-CP Comment:10/09/23 Klebsiella pneumoniae, Sputum 10/09/2023 10/09/2023 05/28/2024 2:37 PM C DT Multi Drug Resistant Organis m (MDRO) Comment:10/09/23 Klebsiella pneumoniae, CRE-CP organism, Sputum 10/09/2023 10/09/2023 REPLANTING MACHINE CREW-CP Comment:10/09/23 Klebsiella pneumoniae, Sputum 10/09/2023 05/28/2024 documented as of this encounter
--- OUTSIDE RECORDS SUMMARY | 2025-04-05 16:07 | XMS_ITS | Encounter Summary ---
Author Organization [facility] Address [address] [place] [address] Care Team Providers Care Slat Basket Maker Machine Name Role Phone Unavailable Primary Care Provider Unavailabl e Encounter Details Date Type Department Care Team (Late st Contact Info) Description 10/23/2023 Lab Requisition [facility] Laboratory Services [address] [place] [address] [place] [address] [place] [address] Social History Tobacco Use Types Packs/Day Years Used Date Smoking Tobacco: Never Assessed Sex and Gender Information Value Date Recorded Sex Assigned at Not on file Legal Sex Male 9:18 AM CASH APPLICATIONS MANAGER Gender Identity Not on file Sexual Orientation Not on file documented as of this encounter Plan of Treatment Not on file documented as of this encounter Procedures Procedure Name Priority Date/Time Associated Diagnosis Comments CBC WITH DIFFERENTIAL Routine 10/23/2023 2:45 AM CASH APPLICATIONS MANAGER BASIC METABOLIC PANEL Routine 10/23/2023 2:45 AM CASH APPLICATIONS MANAGER documented in this encounter Results * (ABNORMAL) CBC WITH DIFFERENTIAL (10/23/2023 2:45 AM CASH APPLICATIONS MANAGER) WBC 12.7(H) 4.5 - 10.5 K/uL 10/23/2023 11:15 AM CASH APPLICATIONS MANAGER [facility] RBC 4.12(L) 4.50 - 5.40 M/uL 10/23/2023 11:15 AM CASH APPLICATIONS MANAGER [facility] LABORAT[facility] HEMOGLOBIN 12.2(L) 13.6 - 16.5 g/dL 10/23/2023 11:15 AM CASH APPLICATIONS MANAGER [facility] LABORATORY SERVICES [facility] HEMATOCRIT 38.7(L) 40.0 - 48.0 % 10/23/2023 11:15 AM CASH APPLICATIONS MANAGER [facility] MCV 94.0 82.0 - 99.0 fL 10/23/2023 11:15 AM CASH APPLICATIONS MANAGER [facility] LABORATORY SERVICES [facility] MCH 29.7 27.8 - 34.5 pg 10/23/2023 11:15 AM CASH APPLICATIONS MANAGER [facility] LABORATORY SERVICES [facility] MCHC 31.6(L) 32.5 - 35.5 g/dL 10/23/2023 11:15 AM CASH APPLICATIONS MANAGER [facility] LABORATORY SERVICES [facility] RDW 17.3(H) 11.5 - 14.5 % 10/23/2023 11:15 AM CASH APPLICATIONS MANAGER [facility] LABORATORY SERVICES [facility] PLATELETS 264 160 - 420 K/uL 10/23/2023 11:15 AM CASH APPLICATIONS MANAGER [facility] LABORATORY SERVICES [facility] MPV 9.6 8.7 - 12.7 fL 10/23/2023 11:15 AM CASH APPLICATIONS MANAGER [facility] LABORATORY SERVICES [facility] NEUTROPHILS 67 % 10/23/2023 11:15 AM CASH APPLICATIONS MANAGER [facility] LABORATORY SERVICES [facility] LYMPHOCYTES 20 % 10/23/2023 11:15 AM CASH APPLICATIONS MANAGER [facility] LABORATORY SERVICES [facility] MONOCYTES 5 % 10/23/2023 11:15 AM CASH APPLICATIONS MANAGER [facility] LABORATORY SERVICES [facility] EOSINOPHILS 8 % 10/23/2023 11:15 AM CASH APPLICATIONS MANAGER [facility] LABORATORY SERVICES [facility] BASOPHILS 1 % 10/23/2023 11:15 AM CASH APPLICATIONS MANAGER [facility] LABORATORY SERVICES [facility] NEUTROPHIL ABSOLUTE 8.50(H) 1.90 - 7.00 K/uL 10/23/2023 11:15 AM CASH APPLICATIONS MANAGER [facility] LABORATORY SERVICES [facility] LYMPHOCYTE ABSOLUTE 2.50 0.70 - 4.50 K/uL 10/23/2023 11:15 AM CASH APPLICATIONS MANAGER [facility] LABORATORY SERVICES [facility] MONOCYTE ABSOLUTE 0.60 0.10 - 1.30 K/uL 10/23/2023 11:15 AM CASH APPLICATIONS MANAGER [facility] LABORATORY SERVICES [facility] EOSINOPHIL ABSOLUTE 1.00(H) 0.00 - 0.70 K/uL 10/23/2023 11:15 AM CASH APPLICATIONS MANAGER [facility] LABORATORY SERVICES [facility] BASOPHILS ABSOLUTE 0.10 0.00 - 0.20 K/uL 10/23/2023 11:15 AM [facility] Blood Collection / Unknown 10/23/2023 2:45 AM CASH APPLICATIONS MANAGER 10/23/2023 10:44 AM CASH APPLICATIONS MANAGER Erik Chairez MD HEMATOLOGY ORDERABLES Final Resu lt [facility] CLIA# [id number] [place] [address] * (ABNORMAL) BASIC METABOLIC PANEL (10/23/2023 2:45 AM CASH APPLICATIONS MANAGER) SODIUM 139 136 - 145 mmol/L 10/23/2023 11:42 AM [facility] POTASSIUM 4.5 3.4 - 5.1 mmol/L 10/23/2023 11:42 AM [facility] CHLORIDE 100 98 - 107 mmol/L 10/23/2023 11:42 AM [facility] CO2 24 22 - 29 mmol/L 10/23/2023 11:42 AM [facility] CALCIUM 9.6 8.6 - 10.4 mg/dL 10/23/2023 11:42 AM [facility] BUN 36(H) 6 - 20 mg/dL 10/23/2023 11:42 AM [facility] CREATININE 0.95 0.67 - 1.17 mg/dL 10/23/2023 11:42 AM [facility] Comment:The GFR result is no t clinically significant on patients <18 or >70 years of age. GLUCOSE 86 74 - 99 mg/dL 10/23/2023 11:42 AM [facility] GFR >60 mL/min/1.7 3 sq meter 10/23/2023 11:42 AM [facility] Comment:eGFR calculated with 2020 CKD-EPI equation. Vegetarian diet, extremely high or low muscle mass, and may affect results. Cystatin C with Glomerular Filtration Rate is a suitable alternative for these patients. ANION GAP 15 8 - 16 mmol/L 10/23/2023 11:42 AM CASH APPLICATIONS MANAGER [facility] LABORATORY SERVICES [facility] Blood Collection / Unknown 10/23/2023 2:45 AM CASH APPLICATIONS MANAGER 10/23/2023 10:44 AM CASH APPLICATIONS MANAGER Erik Chairez MD CHEMISTRY ORDERABLES Final Resul t [facility] LABORATORY SERVICES [facility] CLIA# [id number] [place] [address] documented in this encounter Visit Diagnoses Not on filedocumented in this encounter Additional Health Concerns Infection Onset Date Last Indicated Resolved Time CRE-CP Comment:10/09/23 Klebsiella pneumoniae, Sputum 10/09/2023 10/09/2023 05/28/2024 2:37 PM C DT Multi Drug Resistant Organis m (MDRO) Comment:10/09/23 Klebsiella pneumoniae, CRE-CP organism, Sputum 10/09/2023 10/09/2023 FRAME OPENER-CP Comment:10/09/23 Klebsiella pneumoniae, Sputum 10/09/2023 05/28/2024 documented as of this encounter
--- OUTSIDE RECORDS SUMMARY | 2025-04-05 16:07 | XMS_ITS | Encounter Summary ---
Author Organization [facility] Address [address] [place] [address] Care Team Providers Care Control Room Helper Name Role Phone Unavailable Primary Care Provider Unavailabl e Encounter Details Date Type Department Care Team (Late st Contact Info) Description 10/29/2023 Lab Requisition [facility] Laboratory Services [address] [place] [address] [place] [address] [place] [address] Social History Tobacco Use Types Packs/Day Years Used Date Smoking Tobacco: Never Assessed Sex and Gender Information Value Date Recorded Sex Assigned at Not on file Legal Sex Male 9:18 AM WINDOWS VMWARE ADMINISTRATOR Gender Identity Not on file Sexual Orientation Not on file documented as of this encounter Plan of Treatment Not on file documented as of this encounter Procedures Procedure Name Priority Date/Time Associated Diagnosis Comments CBC WITH DIFFERENTIAL Routine 10/29/2023 3:20 AM WINDOWS VMWARE ADMINISTRATOR BASIC METABOLIC PANEL Routine 10/29/2023 3:20 AM WINDOWS VMWARE ADMINISTRATOR documented in this encounter Results * (ABNORMAL) CBC WITH DIFFERENTIAL (10/29/2023 3:20 AM WINDOWS VMWARE ADMINISTRATOR) WBC 8.0 4.5 - 10.5 K/uL 10/29/2023 8:18 AM WINDOWS VMWARE ADMINISTRATOR [facility] LABORATORY SERVICES - [facility] RBC 3.85(L) 4.50 - 5.40 M/uL 10/29/2023 8:18 AM WINDOWS VMWARE ADMINISTRATOR [facility] LABOR[facility]ORY [facility] HEMOGLOBIN 11.6(L) 13.6 - 16.5 g/dL 10/29/2023 8:18 AM WINDOWS VMWARE ADMINISTRATOR [facility] LABOR[facility]ORY [facility] HEMATOCRIT 35.7(L) 40.0 - 48.0 % 10/29/2023 8:18 AM WINDOWS VMWARE ADMINISTRATOR [facility] LABORATORY SERVICES [facility] MCV 92.6 82.0 - 99.0 fL 10/29/2023 8:18 AM WINDOWS VMWARE ADMINISTRATOR [facility] LABORATORY SERVICES - [facility] MCH 30.0 27.8 - 34.5 pg 10/29/2023 8:18 AM WINDOWS VMWARE ADMINISTRATOR [facility] LABORATORY SERVICES [facility] MCHC 32.4(L) 32.5 - 35.5 g/dL 10/29/2023 8:18 AM WINDOWS VMWARE ADMINISTRATOR [facility] LABORATORY SERVICES [facility] RDW 17.3(H) 11.5 - 14.5 % 10/29/2023 8:18 AM WINDOWS VMWARE ADMINISTRATOR [facility] LABORATORY SERVICES [facility] PLATELETS 255 160 - 420 K/uL 10/29/2023 8:18 AM WINDOWS VMWARE ADMINISTRATOR [facility] LABORATORY SERVICES [facility] MPV 9.9 8.7 - 12.7 fL 10/29/2023 8:18 AM WINDOWS VMWARE ADMINISTRATOR [facility] LABORATORY SERVICES [facility] NEUTROPHILS 61 % 10/29/2023 8:18 AM WINDOWS VMWARE ADMINISTRATOR [facility] LABORATORY SERVICES [facility] LYMPHOCYTES 22 % 10/29/2023 8:18 AM WINDOWS VMWARE ADMINISTRATOR [facility] MONOCYTES 6 % 10/29/2023 8:18 AM WINDOWS VMWARE ADMINISTRATOR [facility] EOSINOPHILS 11 % 10/29/2023 8:18 AM WINDOWS VMWARE ADMINISTRATOR [facility] LABORATORY SERVICES [facility] BASOPHILS 1 % 10/29/2023 8:18 AM WINDOWS VMWARE ADMINISTRATOR [facility] LABORATORY SERVICES [facility] NEUTROPHIL ABSOLUTE 4.90 1.90 - 7.00 K/uL 10/29/2023 8:18 AM WINDOWS VMWARE ADMINISTRATOR [facility] LABORATORY SERVICES [facility] LYMPHOCYTE ABSOLUTE 1.70 0.70 - 4.50 K/uL 10/29/2023 8:18 AM WINDOWS VMWARE ADMINISTRATOR [facility] MONOCYTE ABSOLUTE 0.50 0.10 - 1.30 K/uL 10/29/2023 8:18 AM WINDOWS VMWARE ADMINISTRATOR [facility] LABORATORY SERVICES [facility] EOSINOPHIL ABSOLUTE 0.80(H) 0.00 - 0.70 K/uL 10/29/2023 8:18 AM WINDOWS VMWARE ADMINISTRATOR [facility] LABORATORY SERVICES [facility] BASOPHILS ABSOLUTE 0.00 0.00 - 0.20 K/uL 10/29/2023 8:18 AM [facility] Blood Collection / Unknown 10/29/2023 3:20 AM WINDOWS VMWARE ADMINISTRATOR 10/29/2023 7:59 AM WINDOWS VMWARE ADMINISTRATOR Erik Chairez MD HEMATOLOGY ORDERABLES Final Resu lt [facility] CLIA# [id number] [address] [place] [address] * (ABNORMAL) BASIC METABOLIC PANEL (10/29/2023 3:20 AM WINDOWS VMWARE ADMINISTRATOR) SODIUM 141 136 - 145 mmol/L 10/29/2023 8:38 AM [facility] POTASSIUM 4.5 3.4 - 5.1 mmol/L 10/29/2023 8:38 AM [facility] CHLORIDE 101 98 - 107 mmol/L 10/29/2023 8:38 AM [facility] CO2 28 22 - 29 mmol/L 10/29/2023 8:38 AM [facility] CALCIUM 10.2 8.6 - 10.4 mg/dL 10/29/2023 8:38 AM [facility] BUN 42(H) 6 - 20 mg/dL 10/29/2023 8:38 AM [facility] CREATININE 1.05 0.67 - 1.17 mg/dL 10/29/2023 8:38 AM [facility] Comment:The GFR result is no t clinically significant on patients <18 or >70 years of age. GLUCOSE 112(H) 74 - 99 mg/dL 10/29/2023 8:38 AM [facility] GFR >60 mL/min/1.7 3 sq meter 10/29/2023 8:38 AM [facility] Comment:eGFR calculated with 2020 CKD-EPI equation. Vegetarian diet, extremely high or low muscle mass, and may affect results. Cystatin C with Glomerular Filtration Rate is a suitable alternative for these patients. ANION GAP 12 8 - 16 mmol/L 10/29/2023 8:38 AM WINDOWS VMWARE ADMINISTRATOR [facility] LABORATORY SERVICES [facility] Blood Collection / Unknown 10/29/2023 3:20 AM WINDOWS VMWARE ADMINISTRATOR 10/29/2023 7:59 AM WINDOWS VMWARE ADMINISTRATOR Erik Chairez MD CHEMISTRY ORDERABLES Final Resul t [facility] LABORATORY SERVICES [facility] CLIA# [id number] [address] [place] [address] documented in this encounter Visit Diagnoses Not on filedocumented in this encounter Additional Health Concerns Infection Onset Date Last Indicated Resolved Time 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
--- OUTSIDE RECORDS SUMMARY | 2025-04-05 16:07 | XMS_ITS | Encounter Summary ---
Author Organization [facility] Address [address] [place] [address] Care Team Providers Care Escort Blind Name Role Phone Unavailable Primary Care Provider Unavailabl e Encounter Details Date Type Department Care Team (Late st Contact Info) Description 10/12/2023 Lab Requisition [facility] Laboratory Services [address] [place] [address] [place] [address] [place] [address] Social History Tobacco Use Types Packs/Day Years Used Date Smoking Tobacco: Never Assessed Sex and Gender Information Value Date Recorded Sex Assigned at Not on file Legal Sex Male 9:18 AM DISTRIBUTOR OPERATOR Gender Identity Not on file Sexual Orientation Not on file documented as of this encounter Plan of Treatment Not on file documented as of this encounter Procedures Procedure Name Priority Date/Time Associated Diagnosis Comments MAGNESIUM LEVEL Routine 10/12/2023 4:00 AM DISTRIBUTOR OPERATOR RENAL FUNCTION PANEL Routine 10/12/2023 4:00 AM DISTRIBUTOR OPERATOR documented in this encounter Results * MAGNESIUM LEVEL (10/12/2023 4:00 AM DISTRIBUTOR OPERATOR) MAGNESIUM 2.3 1.6 - 2.6 mg/dL 10/12/2023 6:02 AM DISTRIBUTOR OPERATOR [facility] [employer] [facility] Blood Collection / Unknown 10/12/2023 4:00 AM DISTRIBUTOR OPERATOR 10/12/2023 5:07 AM DISTRIBUTOR OPERATOR us Erik Chairez MD CHEMISTRY ORDERABLES Final Resul t [facility]# [id number] [address] [place] [address] * (ABNORMAL) RENAL FUNCTION PANEL (10/12/2023 4:00 AM DISTRIBUTOR OPERATOR) SODIUM 139 136 - 145 mmol/L 10/12/2023 6:02 AM [facility] POTASSIUM 4.2 3.4 - 5.1 mmol/L 10/12/2023 6:02 AM [facility] CHLORIDE 102 98 - 107 mmol/L 10/12/2023 6:02 AM [facility] CO2 24 22 - 29 mmol/L 10/12/2023 6:02 AM [facility] CALCIUM 9.5 8.6 - 10.4 mg/dL 10/12/2023 6:02 AM [facility] BUN 43(H) 6 - 20 mg/dL 10/12/2023 6:02 AM [facility] CREATININE 1.20(H) 0.67 - 1.17 mg/dL 10/12/2023 6:02 AM [facility] Comment:The GFR result is no t clinically significant on patients <18 or >70 years of age. GLUCOSE 94 74 - 99 mg/dL 10/12/2023 6:02 AM [facility] ALBUMIN 3.4(L) 3.5 - 5.2 g/dL 10/12/2023 6:02 AM [facility] PHOSPHORUS 4.2 2.5 - 4.5 mg/dL 10/12/2023 6:02 AM [facility] GFR 60 mL/min/1.7 3 sq meter 10/12/2023 6:02 AM [facility] Comment:eGFR calculated with 2020 CKD-EPI equation. Vegetarian diet, extremely high or low muscle mass, and may affect results. Cystatin C with Glomerular Filtration Rate is a suitable alternative for these patients. ANION GAP 13 8 - 16 mmol/L 10/12/2023 6:02 AM [facility] Blood Collection / Unknown 10/12/2023 4:00 AM DISTRIBUTOR OPERATOR 10/12/2023 5:07 AM DISTRIBUTOR OPERATOR Erik Chairez MD CHEMISTRY ORDERABLES Final Resul t [facility] LABOR[facility]ORY [facility] CLIA# [id number] [address] [place] [address] documented in this encounter Visit Diagnoses Not on filedocumented in this encounter Additional Health Concerns Infection Onset Date Last Indicated Resolved Time CRE-CP Comment:10/09/23 Klebsiella pneumoniae, Sputum 10/09/2023 10/09/2023 05/28/2024 2:37 PM C DT Multi Drug Resistant Organis m (MDRO) Comment:10/09/23 Klebsiella pneumoniae, CRE-CP organism, Sputum 10/09/2023 10/09/2023 PRODUCTION EXPEDITER-CP Comment:10/09/23 Klebsiella pneumoniae, Sputum 10/09/2023 05/28/2024 documented as of this encounter
--- OUTSIDE RECORDS SUMMARY | 2025-04-05 16:07 | XMS_ITS | Encounter Summary ---
Author Organization [facility] Address [address] [place] [address] Care Team Providers Care Broadcast Producer Name Role Phone Unavailable Primary Care Provider Unavailabl e Encounter Details Date Type Department Care Team (Late st Contact Info) Description 11/05/2023 Lab Requisition [facility] Laboratory Services [address] [place] [address] [place] [address] [place] [address] Social History Tobacco Use Types Packs/Day Years Used Date Smoking Tobacco: Never Assessed Sex and Gender Information Value Date Recorded Sex Assigned at Not on file Legal Sex Male 9:18 AM HEAD DOFFER Gender Identity Not on file Sexual Orientation Not on file documented as of this encounter Plan of Treatment Not on file documented as of this encounter Procedures Procedure Name Priority Date/Time Associated Diagnosis Comments DIFFERENTIAL, MANUAL Routine 11/05/2023 3:30 AM HEAD DOFFER CBC WITH DIFFERENTIAL Routine 11/05/2023 3:30 AM HEAD DOFFER documented in this encounter Results * MANUAL DIFFERENTIAL (11/05/2023 3:30 AM HEAD DOFFER) PLATELET EST. Consistent w Count 11/05/2023 6:05 AM HEAD DOFFER [facility] RBC MORPHOLOGY Normal 11/05/2023 6:05 AM HEAD DOFFER [facility] Blood Collection / Unknown 11/05/2023 3:30 AM HEAD DOFFER 11/05/2023 5:05 AM HEAD DOFFER Erik Chairez MD HEMATOLOGY ORDERABLES COM Final Result [facility] CLIA# [id number] [address] [place] [address] * (ABNORMAL) CBC WITH DIFFERENTIAL (11/05/2023 3:30 AM HEAD DOFFER) [facility] WBC 7.5 4.5 - 10.5 K/uL 11/05/2023 6:05 AM [facility] LABORATORY [facility] RBC 3.81(L) 4.50 - 5.40 M/uL 11/05/2023 6:05 AM [facility] HEMOGLOBIN 11.9(L) 13.6 - 16.5 g/dL 11/05/2023 6:05 AM [facility] HEMATOCRIT 35.6(L) 40.0 - 48.0 % 11/05/2023 6:05 AM [facility] [employer] [facility] MCV 93.5 82.0 - 99.0 fL 11/05/2023 6:05 AM [facility] [employer] [facility] MCH 31.2 27.8 - 34.5 pg 11/05/2023 6:05 AM [facility] [employer] [facility] MCHC 33.3 32.5 - 35.5 g/dL 11/05/2023 6:05 AM [facility] [employer] [facility] RDW 17.0(H) 11.5 - 14.5 % 11/05/2023 6:05 AM [facility] [employer] [facility] PLATELETS 243 160 - 420 K/uL 11/05/2023 6:05 AM [facility] [employer] [facility] MPV 9.4 8.7 - 12.7 fL 11/05/2023 6:05 AM [facility] LABORATORY [facility] NEUTROPHILS 63 % 11/05/2023 6:05 AM HEAD DOFFER [facility] [employer] [facility] LYMPHOCYTES 23 % 11/05/2023 6:05 AM HEAD DOFFER [facility] LABORATORY [facility] MONOCYTES 5 % 11/05/2023 6:05 AM [facility] LABORATORY [facility] EOSINOPHILS 9 % 11/05/2023 6:05 AM HEAD DOFFER [facility] LABORATORY [facility] BASOPHILS 1 % 11/05/2023 6:05 AM HEAD DOFFER [facility] LABORATORY [facility] NEUTROPHIL ABSOLUTE 4.70 1.90 - 7.00 K/uL 11/05/2023 6:05 AM HEAD DOFFER [facility] LABORATORY [facility] LYMPHOCYTE ABSOLUTE 1.70 0.70 - 4.50 K/uL 11/05/2023 6:05 AM HEAD DOFFER [facility] LABORATORY [facility] MONOCYTE ABSOLUTE 0.40 0.10 - 1.30 K/uL 11/05/2023 6:05 AM HEAD DOFFER [facility] LABORATORY [facility] EOSINOPHIL ABSOLUTE 0.70 0.00 - 0.70 K/uL 11/05/2023 6:05 AM HEAD DOFFER [facility] LABORATORY SERVICES - [facility] BASOPHILS ABSOLUTE 0.00 0.00 - 0.20 K/uL 11/05/2023 6:05 AM HEAD DOFFER [facility] LABORAT[facility] Blood Collection / Unknown 11/05/2023 3:30 AM HEAD DOFFER 11/05/2023 5:05 AM HEAD DOFFER Erik Chairez MD HEMATOLOGY ORDERABLES Final Resu lt [facility] CLIA# [id number] [address] [place] [address] documented in this encounter Visit Diagnoses Not on filedocumented in this encounter Additional Health Concerns Infection Onset Date Last Indicated Resolved Time 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
--- OUTSIDE RECORDS SUMMARY | 2025-04-05 16:07 | XMS_ITS | Clinical Summary ---
Author Organization [facility] Address [address] [place] [address] Care Team Providers Care Head Piece Assembler Name Role Phone Demond Stark MD Primary Care Provider [phone] Allergies Active Allergy Reactions Criticality Noted Date Comments Diphenhydramine Hallucinations Medium 11/27/2023 Was not able to sleep and made him more anxious Lisinopril Cough Low Reaction: Cough, Pravastatin Muscle pain Medium Reaction: Muscular Pain, Quetiapine Other (See comments) Low 06/05/2024 Hallucinations, insomnia Simvastatin Muscle pain Medium Reaction: Muscular Pain, Ymofeun-Gdp-Tlg Reductase Inhibitors Muscle pain,Other (See comments) Medium 10/03/2015 Pt reports leg weakness/heavine ss when taking zocor. Medications levothyroxine (SYNTHROID) 112 mcg tablet Take 1 tablet (112 mcg total) by mouth electrical integrator before breakfast Active aspirin 81 mg tablet [...] (COZAAR) 50 mg tabletIndications:Co ronary arteriosclerosis in curyung artery,Cardiomyopath y, unspecified type (HCC) Take 1 [...] 08/31/2024 Assessment & Plan (10/05/2024 10:54 AM HOGSHEAD HEAD MATCHER): Avoid ear cleaning techniques Avoid water to ears Follow up in 9 months for right ear tube check, earlier with ear drainage Assessment & Plan (08/31/2024 11:40 AM HOGSHEAD HEAD MATCHER): Right myringotomy with T-tube placement Risks and [...] 07/09/2024 Assessment & Plan (08/31/2024 11:39 AM HOGSHEAD HEAD MATCHER): Right myringotomy with T-tube placement Risks and [...] 08/07/2017 Assessment & Plan (08/07/2017 6:01 PM HOGSHEAD HEAD MATCHER): Has had elevated LFTs and a fatty liver. Bradycardia 08/07/2017 Assessment & Plan (08/07/2017 5:58 PM HOGSHEAD HEAD MATCHER): Asymptomatic bradycardia, on low-dose metoprolol which may eventually need to be reduced or discontinued. Traumatic subdural hematoma of neuraxis 10/15/19 17 Overview (12/28/2016): Traumatic subdural hematoma without loss of consciousness, sequela Statin intolerance 10/15/2016 Overview (12/28/2016): Statin intolerance Essential hypertension 07/20/2013 Overview (12/28/2016): Hypertension Assessment & Plan (08/07/2017 5:57 PM HOGSHEAD HEAD MATCHER): Hypertension is not under good control; reviewing [...] HYPERLIPIDEMIA Assessment & Plan (08/07/2017 6:03 PM HOGSHEAD HEAD MATCHER): Has refued further attempts at statin therapy. History of coronary artery bypass surgery 2009 Overview (12/26/2016): AORTOCORONARY BYPASS Coronary arteriosclerosis in curyung artery 12/20 Overview (08/07/2017): CRNRY ATHRSCL NATVE VSSL 2009: Non STEMI and CABG x3 (HOBSON to the LAD, sequential RA to OM and D1) Assessment & Plan (08/07/2017 6:00 PM HOGSHEAD HEAD MATCHER): 2009: Non STEMI and CABG x3 (HOBSON [...] 03/04/2018 Assessment & Plan (08/07/2017 5:58 PM HOGSHEAD HEAD MATCHER): Patient is going to have knee surgery soon and needs preoperative clearance. Coronary artery disease appears stable. Low risk for cardiac event with proposed surgery. 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/2009 03/25/2023 Overview (12/28/2016): SUBENDO INFARCT, SUBSEQ Encounters Date Type Department Care Team Description 03/16/2025 2:30 PM CDT Office Visit [facility] Cardiology [address] [place] [phone] Mando Luna MD Persistent atrial fibrillation (HCC) (Primary Dx); Coronary arteriosclerosis in curyung artery; Chronic anticoagulation; Nonrheumatic aortic (valve) stenosis; Cardiomyopathy, unspecified type (HCC) 03/16/2025 Orders Only [facility] Cardiology [address] [place] [phone] Taylor Mustafa MD 03/01/2025 Telephone [facility] Medical [facility] Cardiology [address] [place] [address] [address] [place] [phone] Mando Luna MD 01/19/2025 Telephone [facility] Medical [facility] Cardiology [address] [place] [phone] Mando Luna MD from Last 3 Months Immunizations Immunization Administration [...] on file Legal Sex Male 8:49 AM HOGSHEAD HEAD MATCHER Gender Identity Not on file Sexual Orientation Not on file Obstetrics History Last Filed Vital Signs Vital Sign Reading Time Taken Comments Blood Pressure 138/70 03/16/2025 2:40 PM CDT Pulse 88 03/16/2025 2:40 PM CDT Temperature 36.3 C (97.4 F) 09/22/2024 1:04 PM HOGSHEAD HEAD MATCHER Respiratory Rate 18 09/22/2024 1:04 PM HOGSHEAD HEAD MATCHER Oxygen Saturation 97% 03/16/2025 2:40 PM CDT Inhaled Oxygen Concentration - - Weight 97.1 kg (214 lb) 03/16/2025 2:40 PM CDT Height 185.4 cm (6' 1) 03/16/2025 2:40 PM CDT Body Mass Index 28.23 03/16/2025 2:40 PM CDT Plan of Treatment Health Maintenance Due Date Last Done Comments Depression Screening 1940 DTaP/Tdap/Td Vaccine (1 - Tdap) 02/21/1951 Hepatitis B Screening 02/21/1958 Well Visit 65+ 02/21/2005 Zoster Vaccine (2 of 3) 11/09/2015 09/14/2015 Pneumococcal vaccine 65+ (2 of 2 - PPSV23) 01/02/2017 11/07/2016 Influenza Vaccine (#1) 2025 9, 07/29/2018, 08/12/2013, Additional history exists Fall Risk Assessment 09/01/2025 09/01/2024 Medical Devices Implanted Type [facility] Recruiting Intern Device Identifier Shelf Expiration Date Model / Serial / Lot [employer]CARD [employer] 1.32mm 4.8mm Modify Ear T Tube Ventilation Ul[employer]il [employer] Blue [id number] - [id number] Implanted:Qty: 1 on 09/22/2024 by Laura Oakes DO at [facility] Right: Ear [employer] 07/13/2034 [id number] / / [id number] [place] [address] MEDICARE [facility] MEDICARE SUPPLEMENT Care Teams Head Piece Assembler Relationship Specialty Start Date End Date Demond Stark MD PCP - General 07/23/11
--- OUTSIDE RECORDS SUMMARY | 2025-04-05 16:07 | XMS_ITS | Encounter Summary ---
Author Organization [facility] Address [address] [place] [address] Care Team Providers Care Roll Carrier Name Role Phone Unavailable Primary Care Provider Unavailabl e Encounter Details Date Type Department Care Team (Late st Contact Info) Description 10/10/2023 Lab Requisition [facility] Laboratory Services [address] [place] [address] [place] [address] [place] [address] Social History Tobacco Use Types Packs/Day Years Used Date Smoking Tobacco: Never Assessed Sex and Gender Information Value Date Recorded Sex Assigned at Not on file Legal Sex Male 9:18 AM CONE TREATER Gender Identity Not on file Sexual Orientation Not on file documented as of this encounter Plan of Treatment Not on file documented as of this encounter Procedures Procedure Name Priority Date/Time Associated Diagnosis Comments CBC WITH DIFFERENTIAL Routine 10/10/2023 3:30 AM CONE TREATER PTT Routine 10/10/2023 3:30 AM CONE TREATER PROTIME-INR Routine 10/10/2023 3:30 AM CONE TREATER PREALBUMIN Routine 10/10/2023 3:30 AM CONE TREATER COMPREHENSIVE METABOLIC PANEL Routine 10/10/2023 3:30 AM CONE TREATER documented in this encounter Results * PTT (10/10/2023 3:30 AM CONE TREATER) PTT 23.4 23.1 - 37.1 seconds 10/10/2023 10:14 AM CONE TREATER [facility] Blood Collection / Unknown 10/10/2023 3:30 AM CONE TREATER 10/10/2023 9:51 AM CONE TREATER Erik Chairez MD HEMATOLOGY ORDERABLES Final Resu lt [facility] CLIA# [id number] [place] [address] * (ABNORMAL) PROTIME-INR (10/10/2023 3:30 AM CONE TREATER) PROTIME 15.0(H) 11.5 - 14.7 Seconds 10/10/2023 10:14 AM CONE TREATER [facility] INR 1.2(H) 0.9 - 1.1 10/10/2023 10:14 AM CONE TREATER [facility] Blood Collection / Unknown 10/10/2023 3:30 AM CONE TREATER 10/10/2023 9:51 AM CONE TREATER Erik Chairez MD HEMATOLOGY ORDERABLES Final Resu lt [facility] [employer] [facility] CLIA# [id number] [place] [address] * PREALBUMIN (10/10/2023 3:30 AM CONE TREATER) PREALBUMIN 23 20 - 40 mg/dL 10/10/2023 2:24 PM CONE TREATER [facility] Blood Collection / Unknown 10/10/2023 3:30 AM CONE TREATER 10/10/2023 9:51 AM CONE TREATER Erik Chairez MD CHEMISTRY ORDERABLES Final Resul t [facility] [employer] [facility] CLIA# [id number] [address] [place] [address] * (ABNORMAL) CBC WITH DIFFERENTIAL (10/10/2023 3:30 AM CONE TREATER) [facility] WBC 10.1 4.5 - 10.5 K/uL 10/10/2023 11:06 AM [facility] RBC 3.85(L) 4.50 - 5.40 M/uL 10/10/2023 11:06 AM [facility] HEMOGLOBIN 11.6(L) 13.6 - 16.5 g/dL 10/10/2023 11:06 AM [facility] [employer] [facility] HEMATOCRIT 36.6(L) 40.0 - 48.0 % 10/10/2023 11:06 AM [facility] [employer] [facility] MCV 95.2 82.0 - 99.0 fL 10/10/2023 11:06 AM [facility] [employer] [facility] MCH 30.1 27.8 - 34.5 pg 10/10/2023 11:06 AM [facility] [employer] [facility] MCHC 31.6(L) 32.5 - 35.5 g/dL 10/10/2023 11:06 AM [facility] [employer] [facility] RDW 19.2(H) 11.5 - 14.5 % 10/10/2023 11:06 AM [facility] [employer] [facility] PLATELETS 250 160 - 420 K/uL 10/10/2023 11:06 AM [facility] [employer] [facility] MPV 9.8 8.7 - 12.7 fL 10/10/2023 11:06 AM [facility] [employer] [facility] NEUTROPHILS 72 % 10/10/2023 11:06 AM [facility] [employer] [facility] LYMPHOCYTES 15 % 10/10/2023 11:06 AM CONE TREATER [facility] MONOCYTES 7 % 10/10/2023 11:06 AM CONE TREATER [facility] EOSINOPHILS 5 % 10/10/2023 11:06 AM CONE TREATER [facility] BASOPHILS 0 % 10/10/2023 11:06 AM [facility] LABORATORY [facility] NEUTROPHIL ABSOLUTE 7.20(H) 1.90 - 7.00 K/uL 10/10/2023 11:06 AM [facility] [employer] [facility] LYMPHOCYTE ABSOLUTE 1.50 0.70 - 4.50 K/uL 10/10/2023 11:06 AM CONE TREATER [facility] MONOCYTE ABSOLUTE 0.70 0.10 - 1.30 K/uL 10/10/2023 11:06 AM CONE TREATER [facility] EOSINOPHIL ABSOLUTE 0.50 0.00 - 0.70 K/uL 10/10/2023 11:06 AM CONE TREATER [facility] BASOPHILS ABSOLUTE 0.00 0.00 - 0.20 K/uL 10/10/2023 11:06 AM CONE TREATER [facility] [employer] [facility] Blood Collection / Unknown 10/10/2023 3:30 AM CONE TREATER 10/10/2023 9:51 AM CONE TREATER us Erik Chairez MD HEMATOLOGY ORDERABLES Final Resu lt [facility] CLIA# [id number] [address] [place] [address] * (ABNORMAL) COMPREHENSIVE METABOLIC PANEL (10/10/2023 3:30 AM CONE TREATER) SODIUM 142 136 - 145 mmol/L 10/10/2023 10:49 AM [facility] [employer] [facility] POTASSIUM 4.1 3.4 - 5.1 mmol/L 10/10/2023 10:49 AM [facility] [employer] [facility] CHLORIDE 104 98 - 107 mmol/L 10/10/2023 10:49 AM [facility] [employer] [facility] CO2 23 22 - 29 mmol/L 10/10/2023 10:49 AM [facility] [employer] [facility] CALCIUM 9.4 8.6 - 10.4 mg/dL 10/10/2023 10:49 AM [facility] [employer] [facility] BUN 34(H) 6 - 20 mg/dL 10/10/2023 10:49 AM [facility] [employer] [facility] CREATININE 1.24(H) 0.67 - 1.17 mg/dL 10/10/2023 10:49 AM [facility] LABORATORY [facility] Comment:The GFR result is no t clinically [...] Blood Collection / Unknown 10/10/2023 3:30 AM CONE TREATER 10/10/2023 9:51 AM CONE TREATER us Erik Chairez MD CHEMISTRY ORDERABLES Final Resul t [facility] CLIA# [id number] [address] [place] [address] documented in this encounter Visit Diagnoses Not on filedocumented in this encounter Additional Health Concerns Infection Onset Date Last Indicated Resolved Time CRE-CP Comment:10/09/23 Klebsiella pneumoniae, Sputum 10/09/2023 10/09/2023 05/28/2024 2:37 PM C DT Multi Drug Resistant Organis m (MDRO) Comment:10/09/23 Klebsiella pneumoniae, CRE-CP organism, Sputum 10/09/2023 10/09/2023 REMOTE SENSING ANALYST-CP Comment:10/09/23 Klebsiella pneumoniae, Sputum 10/09/2023 05/28/2024 documented as of this encounter
--- OUTSIDE RECORDS SUMMARY | 2025-04-05 16:07 | XMS_ITS | Encounter Summary ---
Author Organization [facility] Address [address] [place] [address] Care Team Providers Care Rn Ante Partum Name Role Phone Unavailable Primary Care Provider Unavailabl e Encounter Details Date Type Department Care Team (Late st Contact Info) Description 10/26/2023 Lab Requisition [facility] Laboratory Services [address] [place] [address] [place] [address] [place] [address] Social History Tobacco Use Types Packs/Day Years Used Date Smoking Tobacco: Never Assessed Sex and Gender Information Value Date Recorded Sex Assigned at Not on file Legal Sex Male 9:18 AM INSTRUCTIONAL DEVELOPER Gender Identity Not on file Sexual Orientation Not on file documented as of this encounter Plan of Treatment Not on file documented as of this encounter Procedures Procedure Name Priority Date/Time Associated Diagnosis Comments CBC WITH DIFFERENTIAL Routine 10/26/2023 3:20 AM INSTRUCTIONAL DEVELOPER BASIC METABOLIC PANEL Routine 10/26/2023 3:20 AM INSTRUCTIONAL DEVELOPER documented in this encounter Results * (ABNORMAL) CBC WITH DIFFERENTIAL (10/26/2023 3:20 AM INSTRUCTIONAL DEVELOPER) WBC 9.2 4.5 - 10.5 K/uL 10/26/2023 5:32 AM INSTRUCTIONAL DEVELOPER [facility] SERVICES - [facility] RBC 3.83(L) 4.50 - 5.40 M/uL 10/26/2023 5:32 AM INSTRUCTIONAL DEVELOPER [facility] LABOR[facility]ORY [facility] HEMOGLOBIN 11.4(L) 13.6 - 16.5 g/dL 10/26/2023 5:32 AM INSTRUCTIONAL DEVELOPER [facility]AT[facility] SERVICES - [facility] HEMATOCRIT 35.4(L) 40.0 - 48.0 % 10/26/2023 5:32 AM INSTRUCTIONAL DEVELOPER [facility] LABORATORY SERVICES [facility] MCV 92.4 82.0 - 99.0 fL 10/26/2023 5:32 AM INSTRUCTIONAL DEVELOPER [facility] LABORATORY SERVICES - [facility] MCH 29.6 27.8 - 34.5 pg 10/26/2023 5:32 AM INSTRUCTIONAL DEVELOPER [facility] LABORATORY SERVICES [facility] MCHC 32.0(L) 32.5 - 35.5 g/dL 10/26/2023 5:32 AM INSTRUCTIONAL DEVELOPER [facility]ORATORY SERVICES [facility] RDW 17.3(H) 11.5 - 14.5 % 10/26/2023 5:32 AM INSTRUCTIONAL DEVELOPER [facility] LABORATORY SERVICES [facility] PLATELETS 240 160 - 420 K/uL 10/26/2023 5:32 AM INSTRUCTIONAL DEVELOPER [facility] LABORATORY SERVICES [facility] MPV 9.3 8.7 - 12.7 fL 10/26/2023 5:32 AM INSTRUCTIONAL DEVELOPER [facility] LABORATORY SERVICES [facility] NEUTROPHILS 69 % 10/26/2023 5:32 AM INSTRUCTIONAL DEVELOPER [facility] LABORATORY SERVICES [facility] LYMPHOCYTES 21 % 10/26/2023 5:32 AM INSTRUCTIONAL DEVELOPER [facility] LABORATORY SERVICES [facility] MONOCYTES 6 % 10/26/2023 5:32 AM INSTRUCTIONAL DEVELOPER [facility]ORATORY SERVICES [facility] EOSINOPHILS 4 % 10/26/2023 5:32 AM INSTRUCTIONAL DEVELOPER [facility]ORATORY SERVICES [facility] BASOPHILS 1 % 10/26/2023 5:32 AM INSTRUCTIONAL DEVELOPER [facility] LABORATORY SERVICES [facility] NEUTROPHIL ABSOLUTE 6.30 1.90 - 7.00 K/uL 10/26/2023 5:32 AM INSTRUCTIONAL DEVELOPER [facility] LABORATORY SERVICES [facility] LYMPHOCYTE ABSOLUTE 1.90 0.70 - 4.50 K/uL 10/26/2023 5:32 AM INSTRUCTIONAL DEVELOPER [facility] MONOCYTE ABSOLUTE 0.50 0.10 - 1.30 K/uL 10/26/2023 5:32 AM INSTRUCTIONAL DEVELOPER [facility] LABORATORY SERVICES [facility] EOSINOPHIL ABSOLUTE 0.40 0.00 - 0.70 K/uL 10/26/2023 5:32 AM INSTRUCTIONAL DEVELOPER [facility] LABORATORY SERVICES [facility] BASOPHILS ABSOLUTE 0.00 0.00 - 0.20 K/uL 10/26/2023 5:32 AM [facility] Blood Collection / Unknown 10/26/2023 3:20 AM INSTRUCTIONAL DEVELOPER 10/26/2023 4:57 AM INSTRUCTIONAL DEVELOPER Erik Chairez MD HEMATOLOGY ORDERABLES Final Resu lt [facility] CLIA# [id number] [facility] [place] [address] * (ABNORMAL) BASIC METABOLIC PANEL (10/26/2023 3:20 AM INSTRUCTIONAL DEVELOPER) SODIUM 137 136 - 145 mmol/L 10/26/2023 5:58 AM [facility] POTASSIUM 4.2 3.4 - 5.1 mmol/L 10/26/2023 5:58 AM [facility] CHLORIDE 100 98 - 107 mmol/L 10/26/2023 5:58 AM [facility] CO2 27 22 - 29 mmol/L 10/26/2023 5:58 AM [facility] CALCIUM 9.8 8.6 - 10.4 mg/dL 10/26/2023 5:58 AM [facility] BUN 39(H) 6 - 20 mg/dL 10/26/2023 5:58 AM [facility] CREATININE 1.01 0.67 - 1.17 mg/dL 10/26/2023 5:58 AM [facility] Comment:The GFR result is no t clinically significant on patients <18 or >70 years of age. GLUCOSE 110(H) 74 - 99 mg/dL 10/26/2023 5:58 AM [facility] GFR >60 mL/min/1.7 3 sq meter 10/26/2023 5:58 AM [facility] Comment:eGFR calculated with 2020 CKD-EPI equation. Vegetarian diet, extremely high or low muscle mass, and may affect results. Cystatin C with Glomerular Filtration Rate is a suitable alternative for these patients. ANION GAP 10 8 - 16 mmol/L 10/26/2023 5:58 AM INSTRUCTIONAL DEVELOPER [facility] LABORATORY SERVICES [facility] Blood Collection / Unknown 10/26/2023 3:20 AM INSTRUCTIONAL DEVELOPER 10/26/2023 4:57 AM INSTRUCTIONAL DEVELOPER Erik Chairez MD CHEMISTRY ORDERABLES Final Resul t [facility]AT[facility] SERVICES [facility] CLIA# [id number] [place] [address] documented in this encounter Visit Diagnoses Not on filedocumented in this encounter Additional Health Concerns Infection Onset Date Last Indicated Resolved Time 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
--- OUTSIDE RECORDS SUMMARY | 2025-04-05 16:07 | XMS_ITS | Encounter Summary ---
Author Organization [facility] Address [address] [place] [address] Care Team Providers Care Fire Protection Engineer Name Role Phone Unavailable Primary Care Provider Unavailabl e Encounter Details Date Type Department Care Team (Late st Contact Info) Description 11/07/2023 Lab Requisition [facility] Laboratory Services [address] [place] [address] [place] [address] [place] [address] Social History Tobacco Use Types Packs/Day Years Used Date Smoking Tobacco: Never Assessed Sex and Gender Information Value Date Recorded Sex Assigned at Not on file Legal Sex Male 9:18 AM FENCE GATE ASSEMBLER Gender Identity Not on file Sexual Orientation Not on file documented as of this encounter Plan of Treatment Not on file documented as of this encounter Procedures Procedure Name Priority Date/Time Associated Diagnosis Comments THEOPHYLLINE LEVEL Routine 11/07/2023 8: 40 AM FENCE GATE ASSEMBLER documented in this encounter Results * (ABNORMAL) THEOPHYLLINE LEVEL (11/07/2023 8:40 AM FENCE GATE ASSEMBLER) THEOPHYLLINE LEVEL <0.8(L) 10.0 - 20.0 ug/mL 11/07/2023 3:56 PM FENCE GATE ASSEMBLER [facility] Comment:Verified by repeat a nalysis. TDM LAST DATE, TIME, AMT (TIFFANIE) Patient unable to state date. time or dose. 11/07/2023 3:56 PM FENCE GATE ASSEMBLER [facility] LAST DOSE AMT, THEOPHYLLINE Other 11/07/2023 3:56 PM FENCE GATE ASSEMBLER [facility] Comment:80 mg Blood 11/07/2023 8:40 AM FENCE GATE ASSEMBLER 11/07/2023 10:34 AM FENCE GATE ASSEMBLER Narrative [facility] - 11/07/2023 3:56 PM FENCE GATE ASSEMBLER Theophylline Toxic Levels: 6 months - Adult = >20.0 ug/mL 0 - 6 months = >15.0 ug/mL Erik Chairez MD CHEMISTRY ORDERABLES Final Resul t [facility] CLIA# [id number] [address] [place] [address] [facility] CLIA# [id number] [address] [place] [address] documented in this encounter Visit Diagnoses Not on filedocumented in this encounter Additional Health Concerns Infection Onset Date Last Indicated Resolved Time 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
--- OUTSIDE RECORDS SUMMARY | 2025-04-05 16:07 | XMS_ITS | Encounter Summary ---
Author Organization [facility] Address [address] [place] [address] Care Team Providers Care Testing Coordinator Name Role Phone Unavailable Primary Care Provider Unavailabl e Encounter Details Date Type Department Care Team (Late st Contact Info) Description 11/04/2023 Lab Requisition [facility] Laboratory Services [address] [place] [address] [place] [address] [place] [address] Social History Tobacco Use Types Packs/Day Years Used Date Smoking Tobacco: Never Assessed Sex and Gender Information Value Date Recorded Sex Assigned at Not on file Legal Sex Male 9:18 AM ALIGNING CHECKER Gender Identity Not on file Sexual Orientation Not on file documented as of this encounter Plan of Treatment Not on file documented as of this encounter Procedures Procedure Name Priority Date/Time Associated Diagnosis Comments CBC WITH DIFFERENTIAL Routine 11/04/2023 3:45 AM ALIGNING CHECKER BASIC METABOLIC PANEL Routine 11/04/2023 3:45 AM ALIGNING CHECKER documented in this encounter Results * (ABNORMAL) CBC WITH DIFFERENTIAL (11/04/2023 3:45 AM ALIGNING CHECKER) WBC 12.2(H) 4.5 - 10.5 K/uL 11/04/2023 8:52 AM ALIGNING CHECKER [facility] LABORATORY SERVICES - [facility] RBC 4.11(L) 4.50 - 5.40 M/uL 11/04/2023 8:52 AM ALIGNING CHECKER [facility]OR[facility] HEMOGLOBIN 11.7(L) 13.6 - 16.5 g/dL 11/04/2023 8:52 AM ALIGNING CHECKER [facility] LABOR[facility] HEMATOCRIT 37.9(L) 40.0 - 48.0 % 11/04/2023 8:52 AM ALIGNING CHECKER [facility] LABORATORY SERVICES [facility] MCV 92.2 82.0 - 99.0 fL 11/04/2023 8:52 AM ALIGNING CHECKER [facility] LABOR[facility] MCH 28.5 27.8 - 34.5 pg 11/04/2023 8:52 AM ALIGNING CHECKER [facility] LABORATORY SERVICES [facility] MCHC 30.9(L) 32.5 - 35.5 g/dL 11/04/2023 8:52 AM ALIGNING CHECKER [facility] LABORATORY SERVICES [facility] RDW 17.0(H) 11.5 - 14.5 % 11/04/2023 8:52 AM ALIGNING CHECKER [facility] LABORATORY SERVICES [facility] PLATELETS 272 160 - 420 K/uL 11/04/2023 8:52 AM ALIGNING CHECKER [facility]ORATORY SERVICES [facility] MPV 10.0 8.7 - 12.7 fL 11/04/2023 8:52 AM ALIGNING CHECKER [facility] LABORATORY SERVICES [facility] NEUTROPHILS 45 % 11/04/2023 8:52 AM ALIGNING CHECKER [facility] LABORATORY SERVICES [facility] LYMPHOCYTES 38 % 11/04/2023 8:52 AM ALIGNING CHECKER [facility]OR[facility]ORY SERVICES [facility] MONOCYTES 7 % 11/04/2023 8:52 AM ALIGNING CHECKER [facility]OR[facility]ORY SERVICES [facility] EOSINOPHILS 11 % 11/04/2023 8:52 AM ALIGNING CHECKER [facility]OR[facility]ORY SERVICES [facility] BASOPHILS 1 % 11/04/2023 8:52 AM ALIGNING CHECKER [facility] NEUTROPHIL ABSOLUTE 5.50 1.90 - 7.00 K/uL 11/04/2023 8:52 AM ALIGNING CHECKER [facility] LABORATORY SERVICES [facility] LYMPHOCYTE ABSOLUTE 4.60(H) 0.70 - 4.50 K/uL 11/04/2023 8:52 AM ALIGNING CHECKER [facility] LABORATORY SERVICES [facility] MONOCYTE ABSOLUTE 0.80 0.10 - 1.30 K/uL 11/04/2023 8:52 AM ALIGNING CHECKER [facility] LABORATORY SERVICES [facility] EOSINOPHIL ABSOLUTE 1.30(H) 0.00 - 0.70 K/uL 11/04/2023 8:52 AM ALIGNING CHECKER [facility] LABORATORY SERVICES [facility] BASOPHILS ABSOLUTE 0.10 0.00 - 0.20 K/uL 11/04/2023 8:[address] [facility] [employer] [facility] Blood 11/04/2023 3:45 AM ALIGNING CHECKER 11/04/2023 8:24 AM ALIGNING CHECKER Erik Chairez MD HEMATOLOGY ORDERABLES Final Resu lt [facility] CLIA# [id number] [address] [place] [address] * (ABNORMAL) BASIC METABOLIC PANEL (11/04/2023 3:45 AM ALIGNING CHECKER) SODIUM 144 136 - 145 mmol/L 11/04/2023 9:49 AM [facility] POTASSIUM 5.3(H) 3.4 - 5.1 mmol/L 11/04/2023 9:49 AM [facility] CHLORIDE 103 98 - 107 mmol/L 11/04/2023 9:49 AM [facility] CO2 26 22 - 29 mmol/L 11/04/2023 9:49 AM [facility] CALCIUM 10.7(H) 8.6 - 10.4 mg/dL 11/04/2023 9:49 AM [facility] BUN 38(H) 6 - 20 mg/dL 11/04/2023 9:49 AM [facility] CREATININE 0.95 0.67 - 1.17 mg/dL 11/04/2023 9:49 AM [facility] Comment:The GFR result is no t clinically significant on patients <18 or >70 years of age. GLUCOSE 114(H) 74 - 99 mg/dL 11/04/2023 9:49 AM [facility] GFR >60 mL/min/1.7 3 sq meter 11/04/2023 9:49 AM [facility] Comment:eGFR calculated with 2020 CKD-EPI equation. Vegetarian diet, extremely high or low muscle mass, and may affect results. Cystatin C with Glomerular Filtration Rate is a suitable alternative for these patients. 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
--- NOTE | 2025-04-05 16:24 | ED.GENADULT ---
HPI - General Adult General Chief complaint: Wound/Laceration <Selina Davies PRODUCTION INSPECTOR - Last Filed: 04/05/25 19:28> Stated complaint: wound /cellulitis <Selina Mccrary January PRODUCTION INSPECTOR - Last Filed: 04/05/25 19:28> Time Seen by Provider: 04/05/25 15:47 <Selina Mccrary January, PRODUCTION INSPECTOR - Last Filed: 04/05/25 19:28> History of Present Illness HPI narrative: Omar Ryan is an 85-year-old male who presents today after being seen at [facility]. He states that they sent him here to make sure he does not a blood clot in his left lower leg. He states he scraped his leg up against a metal fence on March 24 and since the area has become swollen and red. He denies any significant pain to his lower extremity. <Selina Mccrary January, PRODUCTION INSPECTOR - Last Filed: 04/05/25 19:28> Related Data Home medications: Home Medications ?Medication ?Instructions ?Recorded ?Confirmed ?Last Taken ?Type loratadine 10 mg tablet (Claritin) 10 mg PO DAILY 05/15/22 12/31/24 11/05/24 History rivaroxaban 20 mg tablet (Xarelto) 20 mg PO QPM 07/30/23 12/31/24 11/05/24 History simethicone 62.5 mg oral strips 1 strip PO BID 12/02/23 12/31/24 11/05/24 History (Gas-X) aspirin 81 mg chewable tablet 1 tablet PO DAILY 01/06/24 12/31/24 11/05/24 History docusate sodium 100 mg capsule 100 mg PO DAILY 03/25/24 12/31/24 11/05/24 History (Stool Softener) pyridoxine (vitamin B6) 100 mg 100 mg PO DAILY 03/25/24 12/31/24 11/05/24 History tablet levothyroxine 112 mcg tablet 112 mcg PO DAILY@0630 11/06/24 12/31/24 11/05/24 History hydrochlorothiazide 12.5 mg capsule mg 04/05/25 Unknown History losartan 25 mg tablet mg 04/05/25 Unknown History <Selina Davies, PRODUCTION INSPECTOR - Last Filed: 04/05/25 19:28> Allergies/adverse reactions: Allergies Allergy/AdvReac Type Severity Reaction Status Date / Time [id number] Reductase Allergy Unknown Joint Pain Verified 04/05/25 13:27 Inhibitor (Gficzky-Ffd-Nvf & MUSCLE Reductase Inhibitor) WEAKNESS diphenhydramine (From AdvReac Agitated Verified 04/05/25 13:27 Benadryl) halobetasol AdvReac Rash Verified 04/05/25 13:27 quetiapine (From Seroquel) AdvReac Agitated Verified 04/05/25 13:27 <Selina Davies, PRODUCTION INSPECTOR - Last Filed: 04/05/25 19:28> Review of Systems Review of Systems: All systems reviewed & are unremarkable except as noted in HPI and below <Selina Davies, PRODUCTION INSPECTOR - Last Filed: 04/05/25 19:28> [facility] Past Medical History Medical History: Medical History Diarrhea Grade II diastolic dysfunction History of open sigmoidectomy Vitamin D deficiency, unspecified Paroxysmal atrial fibrillation Brain bleed Prostate CA Basal cell carcinoma Hepatitis B Prediabetes Hypothyroid Constipation GERD (gastroesophageal reflux disease) Hyperlipidemia Hypertension CAD (coronary artery disease) Myocardial infarct Seizures <Selina Davies, PRODUCTION INSPECTOR - Last Filed: 04/05/25 19:28> Surgical History Surgical History: Surgical History S/P hernia repair 08/02/2023 had open repair of right inguinal hernia due to 70% of the patient's small bowel contents being within the hernia, complicated by postoperative abscess requiring percutaneous drain, 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 The patient had postoperative shock and remained intubated for a prolonged period requiring tracheostomy and transfer to LTAC 10/09/2023 S/P percutaneous endoscopic gastrostomy (PEG) tube placement (09/25/23) With subsequent removal History of tracheostomy 09/13/2023 with subsequent removal History of colostomy Status post Willy procedure 09/04/23 Extensive (2 1/2 hrs) adhesiolysis, sigmoidectomy with end descending colostomy and Willy procedure Hx of local excision of skin lesion H/O arthroscopy lt knee H/O prostatectomy Hx of colonoscopy 2012 - Dr. Yovana Sheffield of [facility] 11/2009 - triple bypass surgery at [facility] <Selina Davies APRN - Last Filed: 04/05/25 19:28> Family History Family History: Family History Father Malignant neoplasm of prostate Sibling Ovarian cancer Mother , epilepsy No problems noted. Sibling No problems noted. <Selina Davies APRN - Last Filed: 04/05/25 19:28> Social History Social History: Social History Social History: Patient lives with his Cherie. He has a distant history of smoking a 12 pack per year history. He used to rarely drinks alcohol and only in moderation. Code status: Full code Surrogate decision maker: Sid () Smoking packs per day: 2 Smoking cigarettes per day: 40.0 Years smoked: 12 Smoking pack-years: 24.00 Smoking status: Former smoker Tobacco type: cigarettes Second hand tobacco smoke exposure: No Smoking end date: 09/23/70 Alcohol intake: never Alcohol use details: RARELY - 1/2 CASE BEER/YR Substance use: never Substance use type: does not use Do You Feel Safe in your Home?: Yes Lack of Transportation: No Lack of Food: Never True Current Housing: I Have Housing Concerned About Future Housing: No Difficulty Paying Gas/Electric Bills: No Difficulty Paying for Meds: No Currently Unemployed: No Education: High School Diploma/GED Difficulty w/ Childcare or Family Care: No Living arrangements: with family Occupation/Education: retired 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 HEAD: Normocephalic, atraumatic. EYES: PERRLA and EOMI. ENT: Nares clear, no rhinorrhea or epistaxis. Mucous membranes moist. Oropharynx without tonsillar hypertrophy exudate or other lesions. NECK: Supple. No adenopathy or masses. No carotid bruits or JVD CHEST: Clear to auscultation. No respiratory distress. No wheezes rales or rhonchi HEART: Regular rate and rhythm. No murmur heard. Normal peripheral pulses. ABDOMEN: Soft, nontender, nondistended, normal active bowel sounds. EXTREMITIES: + SKIN: Warm, dry, no rash. NEURO: No focal deficits. Alert and oriented x3. PSYCH: Normal mood and affect. <Selina Davies, PRODUCTION INSPECTOR - Last Filed: 04/05/25 19:28> Course SECRETARY OFFICE CLERK/PA Physician Supervision I agree with midlevel documentation; I performed the medical decision making component of this evaluation. <Yashira Dominguez MD - Last Filed: 04/06/25 09:17> Vital Signs Vital signs: Vital Signs Temperature 98.3 F 04/05/25 14:38 Pulse Rate 93 04/05/25 14:38 Respiratory Rate 20 04/05/25 14:38 Blood Pressure 142/84 H 04/05/25 14:38 Pulse Oximetry 97 04/05/25 14:38 Oxygen Delivery Room Air 04/05/25 14:38 Temperature 98.0 F 04/05/25 18:50 Pulse Rate 87 04/05/25 18:50 Respiratory Rate 18 04/05/25 18:50 Blood Pressure 133/80 04/05/25 18:50 Pulse Oximetry 98 04/05/25 18:50 Oxygen Delivery Room Air 04/05/25 14:38 <Selina Davies, PRODUCTION INSPECTOR - Last Filed: 04/05/25 19:28> Vital Signs Temperature 98.3 F 04/05/25 14:38 Pulse Rate 93 04/05/25 14:38 Respiratory Rate 20 04/05/25 14:38 Blood Pressure 142/84 H 04/05/25 14:38 Pulse Oximetry 97 04/05/25 14:38 Oxygen Delivery Room Air 04/05/25 14:38 Temperature 98.0 F 04/05/25 18:50 Pulse Rate 87 04/05/25 18:50 Respiratory Rate 18 04/05/25 18:50 Blood Pressure 133/80 04/05/25 18:50 Pulse Oximetry 98 04/05/25 18:50 Oxygen Delivery Room Air 04/05/25 14:38 <Yashira Dominguez MD - Last Filed: 04/06/25 09:17> Medical Decision Making MDM Narrative Medical decision making narrative: 85-year-old male who presents today with complaints of having increased redness and swelling to his left lower extremity. He correlates this to bumping it on to a metal fence 2 weeks ago. Exam shows swelling edema to the anterior left lower extremity positive erythema strong pedal pulses range of motion intact, neurovascular intact Concern for : cellulitis/ dvt/ fracture XR left Tib/Fib : No acute osseous abnormality left leg. XR left ankle : No acute osseous abnormality left ankle. CBC: No leukocytosis, hemodynamically stable CMP: BUN 23, GFR 54, total protein 8.3 Lactate: 0.8 US: 1. No deep venous thrombosis in the left lower limb. 2. Nonocclusive thrombus within a tortuous vein in the subcutaneous tissues at the left calf possibly within the left lesser saphenous vein or more likely a superficial varicosity with surrounding edema suggestive of thrombophlebitis. Discussed case with Dr. Dominguez and based on the US findings and he is already on Xarelto no further treatment for this the thrombophlebitis, and regard to concern for possible infection will start him on Ceftriaxone one dose here and d/c with Cephalexin QID for 1 week with close PCP follow up and strict return precautions. Patient and his are updated on the results and the plan and both agree with plan D/C with Do wrap, encouraged elevation of extremity with cool compresses Cephalexin and PCP follow up Patient given strict return precautions, he verbalizes understanding and agrees with plan <Selina Davies, PRODUCTION INSPECTOR - Last Filed: 04/05/25 19:28> Medical Records Medical records reviewed: Yes I reviewed the external patient's medical records. <Selina Davies, PRODUCTION INSPECTOR - Last Filed: 04/05/25 19:28> Vital Signs Vital Signs: Vital Signs Temperature 98.3 F 04/05/25 14:38 Pulse Rate 93 04/05/25 14:38 Respiratory Rate 20 04/05/25 14:38 Blood Pressure 142/84 H 04/05/25 14:38 Pulse Oximetry 97 04/05/25 14:38 Oxygen Delivery Room Air 04/05/25 14:38 Temperature 98.0 F 04/05/25 18:50 Pulse Rate 87 04/05/25 18:50 Respiratory Rate 18 04/05/25 18:50 Blood Pressure 133/80 04/05/25 18:50 Pulse Oximetry 98 04/05/25 18:50 Oxygen Delivery Room Air 04/05/25 14:38 Vitals reviewed by me <Selina Davies APRN - Last Filed: 04/05/25 19:28> Vital Signs Temperature 98.3 F 04/05/25 14:38 Pulse Rate 93 04/05/25 14:38 Respiratory Rate 20 04/05/25 14:38 Blood Pressure 142/84 H 04/05/25 14:38 Pulse Oximetry 97 04/05/25 14:38 Oxygen Delivery Room Air 04/05/25 14:38 Temperature 98.0 F 04/05/25 18:50 Pulse Rate 87 04/05/25 18:50 Respiratory Rate 18 04/05/25 18:50 Blood Pressure 133/80 04/05/25 18:50 Pulse Oximetry 98 04/05/25 18:50 Oxygen Delivery Room Air 04/05/25 14:38 <Yashira Dominguez MD - Last Filed: 04/06/25 09:17> Lab Data Lab results reviewed: Yes I reviewed the patient's lab results. <Selina Davies APRN - Last Filed: 04/05/25 19:28> Result diagrams: 04/05/25 16:59 04/05/25 16:59 <Selina Davies APRN - Last Filed: 04/05/25 19:28> Labs: Lab Results 04/05/25 Range/Units 16:59 WBC 7.8 (4.5-10.0) K/mm3 RBC 3.73 L (4.6-6.20) M/mm3 Hgb 11.4 L (14.0-18.0) g/dL Hct 36.5 L (42.0-52.0) % MCV 97.9 (80-100) fl MCH 30.6 (26-34) pg MCHC 31.2 L (32-36) g/dl RDW 12.9 (11.5-14.5) % Plt Count 212 (150-375) k/mm3 MPV 10.5 H (7.4-10.4) fl Immature Gran % (Auto) 0.4 (0-0.5) % Neut % (Auto) 65.8 (45.5-73.1) % Lymph % (Auto) 20.2 (18.3-44.2) % Navarro % (Auto) 7.7 (2.6-8.5) % Eos % (Auto) 5.1 H (0-4.4) % Baso % (Auto) 0.8 (0.2-1.2) % Lymph # (Auto) 1.57 (0.9-3.2) K/mm3 Navarro # (Auto) 0.6 (0.1-0.6) K/mm3 Eos # (Auto) 0.4 H (0-0.3) K/mm3 Baso # (Auto) 0.1 (0.0-0.1) K/mm3 Abs Immat Gran (auto) 0.03 (0.00-0.031) K/mm3 Absolute Neuts (auto) 5.1 (1.3-6.7) K/mm3 Absolute Nucleated RBC 0.000 (0.0-0.012) K/mm3 Nucleated RBC % 0.0 (0.0-0.2) % Sodium 139 (137-145) mmol/L Potassium 4.3 (3.4-5.0) mmol/L Chloride 100 (98-107) mmol/L Carbon Dioxide 29 (22-30) mmol/L Anion Gap 10 (4-12) mmol/L BUN 23 H (9-20) mg/dL Creatinine 1.27 (0.7-1.3) mg/dL Estim Creat Clear Calc 43 ml/min Estimated GFR 54 L (59 - ) Glucose 99 (65-110) mg/dL Lactic Acid 0.8 (0.7-2.0) mmol/L Calcium 9.4 (8.4-10.2) mg/dL Total Bilirubin 1.0 (0.2-1.3) mg/dL AST 28 (17-59) U/L ALT 14 (6-50) U/L Alkaline Phosphatase 88 (38-126) U/L Total Protein 8.3 H (6.3-8.2) g/dL Albumin 4.4 (3.5-5.1) g/dL <Selina Davies, PRODUCTION INSPECTOR - Last Filed: 04/05/25 19:28> Lab Results 04/05/25 Range/Units 16:59 WBC 7.8 (4.5-10.0) K/mm3 RBC 3.73 L (4.6-6.20) M/mm3 Hgb 11.4 L (14.0-18.0) g/dL Hct 36.5 L (42.0-52.0) % MCV 97.9 (80-100) fl MCH 30.6 (26-34) pg MCHC 31.2 L (32-36) g/dl RDW 12.9 (11.5-14.5) % Plt Count 212 (150-375) k/mm3 MPV 10.5 H (7.4-10.4) fl Immature Gran % (Auto) 0.4 (0-0.5) % Neut % (Auto) 65.8 (45.5-73.1) % Lymph % (Auto) 20.2 (18.3-44.2) % Navarro % (Auto) 7.7 (2.6-8.5) % Eos % (Auto) 5.1 H (0-4.4) % Baso % (Auto) 0.8 (0.2-1.2) % Lymph # (Auto) 1.57 (0.9-3.2) K/mm3 Navarro # (Auto) 0.6 (0.1-0.6) K/mm3 Eos # (Auto) 0.4 H (0-0.3) K/mm3 Baso # (Auto) 0.1 (0.0-0.1) K/mm3 Abs Immat Gran (auto) 0.03 (0.00-0.031) K/mm3 Absolute Neuts (auto) 5.1 (1.3-6.7) K/mm3 Absolute Nucleated RBC 0.000 (0.0-0.012) K/mm3 Nucleated RBC % 0.0 (0.0-0.2) % Sodium 139 (137-145) mmol/L Potassium 4.3 (3.4-5.0) mmol/L Chloride 100 (98-107) mmol/L Carbon Dioxide 29 (22-30) mmol/L Anion Gap 10 (4-12) mmol/L BUN 23 H (9-20) mg/dL Creatinine 1.27 (0.7-1.3) mg/dL Estim Creat Clear Calc 43 ml/min Estimated GFR 54 L (59 - ) Glucose 99 (65-110) mg/dL Lactic Acid 0.8 (0.7-2.0) mmol/L Calcium 9.4 (8.4-10.2) mg/dL Total Bilirubin 1.0 (0.2-1.3) mg/dL AST 28 (17-59) U/L ALT 14 (6-50) U/L Alkaline Phosphatase 88 (38-126) U/L Total Protein 8.3 H (6.3-8.2) g/dL Albumin 4.4 (3.5-5.1) g/dL <Yashira Dominguez MD - Last Filed: 04/06/25 09:17> Imaging Data Radiologist's impression: Impressions Tibia/Fibula X-Ray 04/05/25 16:23 IMPRESSION: No acute osseous abnormality left leg. Ankle X-Ray 04/05/25 16:25 IMPRESSION: No acute osseous abnormality left ankle. Venous Doppler Study 04/05/25 16:56 IMPRESSION: 1. No deep venous thrombosis in the left lower limb. 2. Nonocclusive thrombus within a tortuous vein in the subcutaneous tissues at the left calf possibly within the left lesser saphenous vein or more likely a superficial varicosity with surrounding edema suggestive of thrombophlebitis. <Selina Davies APRN - Last Filed: 04/05/25 19:28> Discharge Plan Discharge Clinical Impression: Cellulitis <Selina Davies APRN - Last Filed: 04/05/25 19:28> Patient Disposition: Home <Selina Davies APRN - Last Filed: 04/05/25 19:28> Condition: Stable <Selina Davies APRN - Last Filed: 04/05/25 19:28> Instructions: Antibiotic Form, Cellulitis (ED) <Selina Davies PRODUCTION INSPECTOR - Last Filed: 04/05/25 19:28> Additional Instructions: Continue to take the Cephalexin four times a day for 1 week Continue to wear the do wrap and keep area compressed/ elevated with cool compresses to help with the swelling Continue your blood thinners as ordered Please call to follow-up with your primary care doctor in the next 3-5 days to have this re-evaluated to make sure it is improving If he develops any worsening symptoms such as increased swelling, increased redness, increased pain, fever or feeling ill return to the emergency department. <Selina Davies APRN - Last Filed: 04/05/25 19:28> Patient Language: Beninese <Selina Davies APRN - Last Filed: 04/05/25 19:28> Prescriptions: New cephalexin 500 mg capsule 500 mg PO QID 7 Days Qty: 28 0RF No Action losartan 25 mg tablet hydrochlorothiazide 12.5 mg capsule aspirin 81 mg tablet,chewable 1 tablet PO DAILY docusate sodium [Stool Softener] 100 mg capsule 100 mg PO DAILY pyridoxine (vitamin B6) 100 mg tablet 100 mg PO DAILY Gas-X 62.5 mg strip 1 strip PO BID Xarelto 20 mg Tablet 20 mg PO QPM Rx Instructions: must administer with evening meal loratadine [Claritin] 10 mg tablet 10 mg PO DAILY levothyroxine 112 mcg tablet 112 mcg PO DAILY@0630 nystatin 100,000 unit/gram powder 1 applic topical TID Qty: 60 1RF famotidine 20 mg tablet 20 mg PO DAILY Qty: 90 1RF <Selina Davies APRN - Last Filed: 04/05/25 19:28> Follow-up/Referrals: Demond Stark MD [Primary Care Provider] - 3 Days <Selina Davies APRN - Last Filed: 04/05/25 19:28> Time of Disposition: 18:08 <Selina Davies APRN - Last Filed: 04/05/25 19:28> 18:08 <Yashira Dominguez MD - Last Filed: 04/06/25 09:17>
[2025-04-05] MEDS: TETANUS,DIPHTHERIA,AC PERTUSSIS ADULT (0.5 ML) BOOSTRIX IM (16:47)
[2025-04-05 17:05] LABS: Hematocrit 36.5 % (42.0-52.0); Hemoglobin 11.4 g/dL (14.0-18.0); Immature Granulocyte Percent A 0.4 % (0-0.5); Lymphocytes Absolute Auto 1.57 K/mm3 (0.9-3.2); Mean Corpuscular HGB Conc 31.2 g/dl (32-36); Mean Corpuscular Hemoglobin 30.6 pg (26-34); Mean Corpuscular Volume 97.9 fl (80-100); Nucleated Red Blood Cells Absolute Auto 0.000 K/mm3 (0.0-0.012); Nucleated Red Blood Cells Perc 0.0 % (0.0-0.2); Platelet Count Result 212 k/mm3 (150-375); Red Blood Count 3.73 M/mm3 (4.6-6.20); White Blood Count 7.8 K/mm3 (4.5-10.0)
[2025-04-05 17:18] LABS: Alanine Aminotransferase 14 U/L (6-50); Albumin Level 4.4 g/dL (3.5-5.1); Alkaline Phosphatase 88 U/L (38-126); Anion Gap 10 mmol/L (4-12); Aspartate Amino Transferase 28 U/L (17-59); Bilirubin,Total 1.0 mg/dL (0.2-1.3); Blood Urea Nitrogen 23 mg/dL (9-20); Calcium 9.4 mg/dL (8.4-10.2); Carbon Dioxide 29 mmol/L (22-30); Chloride 100 mmol/L (98-107); Estimated CRCL calculation 43 ml/min; Estimated Glomerular Filt Rate 54; Glucose 99 mg/dL (65-110); Potassium 4.3 mmol/L (3.4-5.0); Sodium 139 mmol/L (137-145); Total Protein 8.3 g/dL (6.3-8.2)
[2025-04-05] MEDS: cefTRIAXone 1 GM in SODIUM CHLORIDE 0.9% IV 50 ML 100 ML IVPB (18:06)
[2025-04-05 18:50] VITALS: BP 133/80; PULSE 87; RESP 18; TEMP 36.7; O2SAT 98
== END 2025-04-05 19:08 | disposition home or self-care (01) ==
PROVIDERS: Emergency Provider Nurse Practitioner Family; PCP Family Medicine
DX: L03.116 Cellulitis of left lower limb (principal); Z23 Encounter for immunization; I48.0 Paroxysmal atrial fibrillation; I25.10 Atherosclerotic heart disease of native coronary artery without angina pectoris; I25.2 Old myocardial infarction; I11.9 Hypertensive heart disease without heart failure; E03.9 Hypothyroidism, unspecified; E55.9 Vitamin D deficiency, unspecified; E78.5 Hyperlipidemia, unspecified; R73.03 Prediabetes; K21.9 Gastro-esophageal reflux disease without esophagitis; I82.4Z2 Acute embolism and thrombosis of unspecified deep veins of left distal lower extremity; Z95.1 Presence of aortocoronary bypass graft; Z85.46 Personal history of malignant neoplasm of prostate; Z85.828 Personal history of other malignant neoplasm of skin; Z87.891 Personal history of nicotine dependence; Z90.79 Acquired absence of other genital organ(s); Z79.01 Long term (current) use of anticoagulants; Z79.82 Long term (current) use of aspirin; Z79.899 Other long term (current) drug therapy
CPT/HCPCS: 36415; 73590; 73610; 80053; 83605; 85025; 90471; 90715; 93971; 96365; 99284; J0696

== ENCOUNTER 2025-04-07 13:30 | Outpatient (RCR) | payer MEDICARE, SELFPAY ==
--- NOTE | 2025-02-17 15:23 | OPREHPOC ---
Outpatient Therapy Plan of Care This is a Multidisciplinary Plan of Care that may contain components documented by all disciplines (PT, OT, and ST.) PT Problem 1 PT Problem #1 Knowledge Deficit PT Goal 1 Goal / Goal Update *independent with HEP Target Visit 8 PT Problem 2 PT Problem #2 Impaired Strength PT Goal 1 Goal / Goal Update *increase strength of R and L LE to 4+/5 to improve mobility Target Visit 8 PT Problem 3 PT Problem #3 Impaired Balance PT Goal 1 Goal / Goal Update *improve balance to improve mobility and decrease risk for falls: 1* Kline balance score of 54/56 2* 5 reps sit/stand test without use of UE in 18 seconds 3* 2 minute walking test distance of 500' 4* up/down 4 steps without use of hand railing, alternate step pattern, independent Target Visit 8
--- NOTE | 2025-02-17 15:23 | PTOPEVAL1 ---
Assessment and note entered by Silvia Jones, PT Evaluation Information Assessment Status Evaluation ICD-10 Condition Codes (PT) Difficulty Walking R26.2,Abnormalities of gait and mobility R26.9,Weakness R53.1 Onset about 1 year ago Subjective Information last fall he had was in March 2024- a bad one with hitting his head and headaches; about 2 months ago , headaches stopped; now feels unsteady with walking, whole body is wobbly, like he is off balance and going to fall. denies dizziness; to have cataract surgery soon- in February, have floaters in his eyes was recently in the hospital for pneumonia and had care services, discharged 01-12-25 activity: do not use a cane or walker; is at home with his ; one entry step into single level home; does go out into the community for shopping and short distances; is doing leg exercises that he received from therapy. Reported Pain Level Pain Score 0: Self Report Assessment PT Clinical Summary Nader has the diagnosis of weakness, balance, gait and mobility issues. He was recently hospitalized and just completed HH therapy. His last fall was March 2024, but still feels unsteady when walking. LE functional scale rating of 20% limitation in activity level. He is at home with his and does not use an assistive device. With the evaluation: 5 reps sit/stand without use of UE in 22 seconds; 2 minute walking test distance of 450'; Kline balance score of 45/56; on 4 steps uses alternating step pattern and 1 hand railing, independent; Skilled PT services are indicated to increase LE strength, gait and balance skills, to improve safety with mobility and education to progress HEP . Plan of Care Interventions Gait Training,Neuro Re-education,Patient/Caregiver Education,Therapeutic Activities,Therapeutic Exercise PT Services Indicated Yes Treatment Frequency and 1-2x/wk for 8 visits Duration These treatments will address the objective and functional deficits as defined above. The patient will be advanced safely and appropriately in order for the patient to progress towards his/her prior level of function. Additional exercises will be introduced and as well as a comprehensive home exercise program upon discharge, if needed, ?to ensure carryover of functional gains achieved in the clinic. This treatment plan has been reviewed and agreement upon by the patient.
--- NOTE | 2025-02-17 16:01 | OPREHPOC ---
Outpatient Therapy Plan of Care This is a Multidisciplinary Plan of Care that may contain components documented by all disciplines (PT, OT, and ST.) PT Problem 1 PT Problem #1 Knowledge Deficit PT Goal 1 Goal / Goal Update *independent with HEP Target Visit 8 PT Problem 2 PT Problem #2 Impaired Strength PT Goal 1 Goal / Goal Update *increase strength of R and L LE to 4+/5 to improve mobility Target Visit 8 PT Problem 3 PT Problem #3 Impaired Balance PT Goal 1 Goal / Goal Update *improve balance to improve mobility and decrease risk for falls: 1* Kline balance score of 54/56 2* 5 reps sit/stand test without use of UE in 18 seconds 3* 2 minute walking test distance of 500' 4* up/down 4 steps without use of hand railing, alternate step pattern, independent Target Visit [address] Problem #[address] Goal 1 Goal / Goal Update 1. Patient will participate in home programming to improve carry over/generalization of skills to home environment. Target Visit [address] Problem #[address] Goal 1 Goal / Goal Update Intelligibility 1. Patient will produce sentence/phrase length responses with utilization of compensatory techniques and 80% intelligibility minimal cues. 2. Patient will state compensatory speech strategies. 3. Patient will complete 3-4 simple conversation exchanges applying compensatory speech techniques with 80% intelligibility minimal cues. ST Problem 3 ST Problem #[address] Goal 1 Goal / Goal Update Voice 1. Patient will produce phrase/sentence length responses with 65dB as measured by a voice meter at close proximity with use of voice strategies 80 % of time minimal cues. 2. Patient will state voice strategies. 3. Patient will complete HEP for voice 4-5 weekly 4.Patient will produce simple responses in 3-4 conversation exchanges with compensatory techniques utilized and 65dB as measured by a voice meter.
--- NOTE | 2025-02-17 16:02 | STOPEVAL1 ---
Assessment and note entered by Cami Live PRESSURE TANK OPERATOR Evaluation Information Assessment Status Evaluation Assessment Status Evaluation ICD-10 Condition Codes (ST) Dysphagia, oropharyngeal phase R13.12,Other voice and resonance disorders R49.8 Other ICD-10 Condition Codes ( R13.12 ST) Subjective Information The patient was referred for speech therapy services due to complaints of dysphagia, lower vocal volume, and decreased clarity of speech impacting everyday communication. The patient has been seen by a neurologist without a definitive diagnosis at this time. Dysphagia has improved since corrective surgery for a diverticulum of the esophagus. the patient reports he is able to consume regular solids and liquids without difficulty. Reported Pain Level Pain Score 0: Self Report Pain Score 0: Self Report Assessment ST Clinical Summary The patient was referred for speech therapy services due to complaints of dysphagia, lower vocal volume, and decreased clarity of speech impacting everyday communication. The patient has been seen by a neurologist without a definitive diagnosis at this time. Dysphagia has improved since corrective surgery for a diverticulum of the esophagus. The patient reports he is able to consume regular solids and liquids without difficulty. The patient's greatest concern at this time is his voice and speech intelligibility. Based on evaluation results the patient is noted to have a vocal intensity of 50-55dB at single phrase, sentence, and conversation level at close proximity impacting communication with others. The patient has a more rapid/mumbled speech rate that further impacts clarity of speech. When provided/ modeled compensatory techniques the patient was able to improve overall vocal intensity to 64dB but required minimal-moderate cues to consistently apply techniques. The patient demonstrates good awareness and ability to benefit from speech services at this time. Plan of Care Interventions Treatment of Speech,Treatment of Voice ST Services Indicated Yes These treatments will address the objective and functional deficits as defined above. The patient will be advanced safely and appropriately in order for the patient to progress towards his/her prior level of function. Additional exercises will be introduced and as well as a comprehensive home exercise program upon discharge, if needed, ?to ensure carryover of functional gains achieved in the clinic. This treatment plan has been reviewed and agreement upon by the patient.
--- NOTE | 2025-03-18 14:24 | STOPREEVAL ---
Assessment and note entered by [employer] WINDMILL MECHANIC Evaluation Information Assessment Status Re-evaluation Reported Pain Level Pain Score 0: Self Report Assessment ST Clinical Summary The patient was initially referred for decreased speech intelligibility and decreased vocal volume. Speech treatment was initiated 2x weekly for 4 weeks. Strategies included slow speech rate, one word at a time, with over articulation to increase intelligibility. The patient is completing sentence production and conversation length exchanges with 100% intelligibility consistently. The patient additionally was seen with the a voice program directed at increasing vocal volume with strong vocal adduction, breath support, and vocal projection. The patient has increased his vocal volume from initially 55 decibels to now 70 decibels at sentence level and 60-65 decibels at simple conversation exchange. The patient has made noted progress for all goals. Recommend Continued speech services 1x weekly for 4-5 more treatments for carry over of voice strategies in everyday exchanges. Plan of Care Interventions Treatment of Voice ST Services Indicated Yes Treatment Frequency and 1x weekly x 10 visits. Duration These treatments will address the objective and functional deficits as defined above. The patient will be advanced safely and appropriately in order for the patient to progress towards his/her prior level of function. Additional exercises will be introduced and as well as a comprehensive home exercise program upon discharge, if needed, ?to ensure carryover of functional gains achieved in the clinic. This treatment plan has been reviewed and agreement upon by the patient.
--- NOTE | 2025-03-18 14:25 | OPREHPOC ---
Outpatient Therapy Plan of Care This is a Multidisciplinary Plan of Care that may contain components documented by all disciplines (PT, OT, and ST.) PT Problem 1 PT Problem #1 Knowledge Deficit PT Goal 1 Goal / Goal Update *independent with HEP Target Visit 8 PT Problem 2 PT Problem #2 Impaired Strength PT Goal 1 Goal / Goal Update *increase strength of R and L LE to 4+/5 to improve mobility Target Visit 8 PT Problem 3 PT Problem #3 Impaired Balance PT Goal 1 Goal / Goal Update *improve balance to improve mobility and decrease risk for falls: 1* Kline balance score of 54/56 2* 5 reps sit/stand test without use of UE in 18 seconds 3* 2 minute walking test distance of 500' 4* up/down 4 steps without use of hand railing, alternate step pattern, independent Target Visit [address] Problem #[address] Goal 1 Goal / Goal Update 1. Patient will participate in home programming to improve carry over/generalization of skills to home environment. (Update 03/18/25 Met) Target Visit [address] Problem 2 ST Problem #[address] Goal 1 Goal / Goal Update Intelligibility 1. Patient will produce sentence/phrase length responses with utilization of compensatory techniques and 80% intelligibility minimal cues. ( Updated 03/18/25 Goal met 90%) 2. Patient will state compensatory speech strategies. (Updated 03/18/25 Goal met) 3. Patient will complete 3-4 simple conversation exchanges applying compensatory speech techniques with 80% intelligibility minimal cues.(Updated Goal Met 80% of time) New Goal: Patient will complete 7-10 simple conversation exchanges 90% intelligible no cues. ST Problem 3 ST Problem #[address] Goal 1 Goal / Goal Update Voice 1. Patient will produce phrase/sentence length responses with 65 decibels as measured by a voice meter at close proximity with use of voice strategies 80% of time minimal cues. (Updated 03/18 Goal Met 70 decibels 85%) 2. Patient will state voice strategies. (Updated Goal met) 3. Patient will complete HEP for voice 4-5 weekly (Updated 03/18/25 Goal Met) 4.Patient will produce simple responses in 3-4 conversation exchanges with compensatory techniques utilized and 65dB as measured by a voice meter. (Updated 03/18/25 Goal Met 3-4 exchanges 65-70 decibels) New Goal: Patient will produce complex conversation responses 7-10 exchanges consistently utilizing compensatory techniques at 70 decibels as measured by a voice meter independent.
--- NOTE | 2025-03-22 14:20 | PTOPDC ---
Assessment and note entered by Silvia Jones, PT Assessment Status Discharge ICD-10 Condition Codes (PT) Difficulty Walking R26.2,Abnormalities of gait and mobility R26.9,Weakness R53.1 Onset about 1 year ago Subjective Information doing better with walking; have not had any falls ; have been doing the exercises at home. agrees to d/c PT. Reported Pain Level Pain Score 0: Self Report Assessment PT Clinical Summary Nader has received a total of 8 PT sessions. Compared to the initial evaluation: LE functional scale rating from 20 to 24% limitation in activity level; 2 minute walking test distance of 450' to 475'; Kline balance score from 45 to 49/56; is able to perform stairs independent with one hand railing and alternate step pattern; gross strength of the R and L LE 4/5; education completed for HEP and safety with mobility. The goals were partially met. Discharge from PT services. He is to continue with his HEP. Plan of Care PT Services Indicated No
--- NOTE | 2025-04-07 14:19 | OPREHPOC ---
Outpatient Therapy Plan of Care This is a Multidisciplinary Plan of Care that may contain components documented by all disciplines (PT, OT, and ST.) PT Problem 1 PT Problem #1 Knowledge Deficit PT Goal 1 Goal / Goal Update *independent with HEP 03-22-25 d/c goal met Target Visit 8 Progress Met PT Problem 2 PT Problem #2 Impaired Strength PT Goal 1 Goal / Goal Update *increase strength of R and L LE to 4+/5 to improve mobility 03-22-25 d/c goal not met; strength of 4/5 Target Visit 8 Progress Not Met PT Problem 3 PT Problem #3 Impaired Balance PT Goal 1 Goal / Goal Update *improve balance to improve mobility and decrease risk for falls: 1* Kline balance score of 54/56 2* 5 reps sit/stand test without use of UE in 18 seconds 3* 2 minute walking test distance of 500' 4* up/down 4 steps without use of hand railing, alternate step pattern, independent 03-22-25 d/c goals not met: #1 49/56; #2 24 seconds #3 475'; # 4 use 1 hand railing for alternate pattern; Target Visit [address] Problem 1 ST Problem #[address] Goal 1 Goal / Goal Update 1. Patient will participate in home programming to improve carry over/generalization of skills to home environment. (Update 03/18/25 Met) Target Visit [address] Problem 2 ST Problem #[address] Goal 1 Goal / Goal Update Intelligibility 1. Patient will produce sentence/phrase length responses with utilization of compensatory techniques and 80% intelligibility minimal cues. ( Updated 03/18/25 Goal met 90%) 2. Patient will state compensatory speech strategies. (Updated 03/18/25 Goal met) 3. Patient will complete 3-4 simple conversation exchanges applying compensatory speech techniques with 80% intelligibility minimal cues.(Updated Goal Met 80% of time) New Goal: Patient will complete 7-10 simple conversation exchanges 90% intelligible no cues. ( Updated goal Met 04/07/25 90% of the time and 90% intelligible) Progress Met ST Problem 3 ST Problem #[address] Goal 1 Goal / Goal Update Voice 1. Patient will produce phrase/sentence length responses with 65 decibels as measured by a voice meter at close proximity with use of voice strategies 80% of time minimal cues. (Updated 03/18 Goal Met 70 decibels 85%) 2. Patient will state voice strategies. (Updated Goal met) 3. Patient will complete HEP for voice 4-5 weekly (Updated 03/18/25 Goal Met) 4.Patient will produce simple responses in 3-4 conversation exchanges with compensatory techniques utilized and 65dB as measured by a voice meter. (Updated 03/18/25 Goal Met 3-4 exchanges 65-70 decibels) New Goal: Patient will produce complex conversation responses 7-10 exchanges consistently utilizing compensatory techniques at 70 decibels as measured by a voice meter independent. (Goal Met 04/07/25) Progress Met
== END 2025-04-07 16:30 | disposition home or self-care (01) ==
LOC: ANHST 13:30
PROVIDERS: PCP Family Medicine
DX: R53.1 Weakness (principal); R13.12 Dysphagia, oropharyngeal phase; K22.5 Diverticulum of esophagus, acquired
CPT/HCPCS: 92507; 92523; 97110; 97112; 97161; 97530

== ENCOUNTER 2025-04-18 14:34 | Inpatient (IN) | payer MEDICARE, SELFPAY ==
[2025-04-18] VITALS (11 sets, daily range): BP systolic 113–169; BP diastolic 63–105; PULSE 59–93; RESP 14–20; TEMP 36.3–36.7; O2SAT 95–99; BMI 28.4; BMI 28.0
--- NOTE | ~2025-04-18 | CT_ITS ---
EXAMINATION: CT abdomen pelvis w con DATE: 04/18/2025 17:01 INDICATION: Abdominal pain, melena TECHNIQUE: Computed tomography (CT) of the abdomen and pelvis was performed with 100 mL Omnipaque-350 intravenous contrast. Automated exposure control and iterative reconstruction technique were employe d. The dose-length product was 598.90 mGy-cm. COMPARISON: CT cap 10/04/2023. FINDINGS: Lower thorax: Changes of prior CABG. Dependent atelectasis. Liver: Scattered hypodensities, too small to characterize but likely represent cysts. Dystrophic calc ification in the right lobe. Biliary/Gallbladder: Gallbladder is normal. No bile duct dilation. Pancreas: Moderate atrophy. Spleen: Normal. Adrenals:No mass. Kidneys: No suspicious mass, obstructing stone, or hydronephrosis. Simple right renal cyst. Bilateral hypodensities, too small to characterize but most likely represent cysts. Bilateral cortical scarrin g and thinning. GI tract: Mild distal esophageal and gastric wall edema. G-tube, in good position. Left lower quadran t colostomy. Uncomplicated distal colonic end closure. Herniation of small bowel into the colostomy, with upstream dilation and wall thickening. Slightly more distally there is a second herniation of sm all bowel into a supraumbilical ventral hernia, with proximal dilation and wall thickening. There is a third herniation of small bowel back into the colostomy defect, with mild wall thickening but no si gnificant dilation. There is a fourth small bowel herniation into a large umbilical hernia, without w all thickening or inflammatory change. Appendix not confidently visualized. Diverticulosis without di verticulitis. Mesentery/Peritoneum: No ascites, mass, or free air. Mesenteric stranding in the left abdomen adjacen t to the abnormal loops of small bowel. Retroperitoneum: No mass. Atherosclerotic calcifications of intra-abdominal arterial vessels. Pelvis: Normal urinary bladder. Likely prostatectomy change. Soft Tissues: Likely prior right inguinal hernia repair. Small bilateral fat-containing on, gated danya earing inguinal hernias. Bones: No acute osseous finding. IMPRESSION: Mild esophagitis/gastritis. Small bowel herniation into the left lower quadrant colostomy defect and a supraumbilical ventral her david with evidence of small bowel obstruction and mesenteric edema in both locations. A third herniati on of small bowel is noted back into the colostomy defect, with mild wall thickening but no significa nt dilation. A fourth herniation of small bowel is present in a umbilical hernia, without complication. Reviewed, dictated and finalized at location K. IMPRESSION: Mild esophagitis/gastritis. Small bowel herniation into the left lower quadrant colostomy defect and a supr aumbilical ventral hernia with evidence of small bowel obstruction and mesenter ic edema in both locations. A third herniation of small bowel is noted back int o the colostomy defect, with mild wall thickening but no significant dilation. A fourth herniation of small bowel is present in a umbilical hernia, without co mplication.
--- NOTE | ~2025-04-18 | XR_ITS ---
EXAMINATION: XR abdomen/kub 1V DATE: 04/19/2025 17:17 INDICATION: Bowel obstruction TECHNIQUE: A supine view of the abdomen on 2 radiographs was obtained. COMPARISON: CT dated 04/18/2025 FINDINGS: Surgical clips projecting along the medial side of the elevated left hemidiaphragm. Percutaneous jt rostomy tube projects over the with side of the upper lumbar spine and the underlying body of the sto mach multiple additional surgical clips in the left and right pelvis. Small to moderate amount of gas and stool scattered throughout the bowels. No dilated bowel to suggest obstruction. IMPRESSION: 1. Postoperative changes as detailed above. No dilated gas-filled bowel to suggest obstruction. Reviewed, dictated and finalized at location A. IMPRESSION: 1. Postoperative changes as detailed above. No dilated gas-filled bowel to sugg est obstruction.
--- OUTSIDE RECORDS SUMMARY | 2025-04-18 14:35 | XMS_ITS | Clinical Summary ---
Author Organization [facility] Address [address] [place] [address] Care Team Providers Care Groover Operator Name Role Phone Demond Stark MD Primary Care Provider [phone] Allergies Active Allergy Reactions Criticality Noted Date Comments Diphenhydramine Hallucinations Medium 11/27/2023 Was not able to sleep and made him more anxious Lisinopril Cough Low Reaction: Cough, Pravastatin Muscle pain Medium Reaction: Muscular Pain, Quetiapine Other (See comments) Low 06/05/2024 Hallucinations, insomnia Simvastatin Muscle pain Medium Reaction: Muscular Pain, Qangfua-Qzm-Yef Reductase Inhibitors Muscle pain,Other (See comments) Medium 10/03/2015 Pt reports leg weakness/heavine ss when taking zocor. Medications levothyroxine (SYNTHROID) 112 mcg tablet Take 1 tablet (112 mcg total) by mouth telecommunications officer before breakfast Active aspirin 81 mg tablet [...] (COZAAR) 50 mg tabletIndications:Co ronary arteriosclerosis in [place] artery,Cardiomyopath y, unspecified type (HCC) Take 1 tablet (50 mg total) by mouth daily 90 tablet 3 03/16/20 25 026 Active Active Problems Problem Noted Date Diagnosed Date Cardiomyopathy 03/16/2025 Nonrheumatic aortic (valve) stenosis 03/16/2025 Dysfunction of right eustachian tube 08/31/2024 Assessment & Plan (10/05/2024 10:54 AM JOURNALISTS AND OTHER WRITERS): Avoid ear cleaning techniques Avoid water to ears Follow up in 9 months for right ear tube check, earlier with ear drainage Assessment & Plan (08/31/2024 11:40 AM JOURNALISTS AND OTHER WRITERS): Right myringotomy with T-tube placement Risks and [...] 07/09/2024 Assessment & Plan (08/31/2024 11:39 AM JOURNALISTS AND OTHER WRITERS): Right myringotomy with T-tube placement Risks and [...] 08/07/2017 Assessment & Plan (08/07/2017 6:01 PM JOURNALISTS AND OTHER WRITERS): Has had elevated LFTs and a fatty liver. Bradycardia 08/07/2017 Assessment & Plan (08/07/2017 5:58 PM JOURNALISTS AND OTHER WRITERS): Asymptomatic bradycardia, on low-dose metoprolol which may eventually need to be reduced or discontinued. Traumatic subdural hematoma of neuraxis 10/15/19 17 Overview (12/28/2016): Traumatic subdural hematoma without loss of consciousness, sequela Statin intolerance 10/15/2016 Overview (12/28/2016): Statin intolerance Essential hypertension 07/20/2013 Overview (12/28/2016): Hypertension Assessment & Plan (08/07/2017 5:57 PM JOURNALISTS AND OTHER WRITERS): Hypertension is not under good control; reviewing [...] HYPERLIPIDEMIA Assessment & Plan (08/07/2017 6:03 PM JOURNALISTS AND OTHER WRITERS): Has refued further attempts at statin therapy. History of coronary artery bypass surgery 2009 Overview (12/26/2016): AORTOCORONARY BYPASS Coronary arteriosclerosis in [place] artery 12/20 Overview (08/07/2017): CRNRY ATHRSCL NATVE VSSL 2009: Non STEMI and CABG x3 (HOBSON to the LAD, sequential RA to OM and D1) Assessment & Plan (08/07/2017 6:00 PM JOURNALISTS AND OTHER WRITERS): 2009: Non STEMI and CABG x3 (HOBSON [...] 03/04/2018 Assessment & Plan (08/07/2017 5:58 PM JOURNALISTS AND OTHER WRITERS): Patient is going to have knee surgery soon and needs preoperative clearance. Coronary artery disease appears stable. Low risk for cardiac event with proposed surgery. 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/2009 03/25/2023 Overview (12/28/2016): SUBENDO INFARCT, SUBSEQ Encounters Date Type Department Care Team Description 03/16/2025 2:30 PM CDT Office Visit [facility] Cardiology [address] [place] [address] [address] [place] [phone] Mando Luna MD Persistent atrial fibrillation (HCC) (Primary Dx); Coronary arteriosclerosis in [place] artery; Chronic anticoagulation; Nonrheumatic aortic (valve) stenosis; Cardiomyopathy, unspecified type (HCC) 03/16/2025 Orders Only [facility] Cardiology [address] [place] [address] [address] [place] [phone] ProviderTaylor MD 03/01/2025 Telephone [facility] Cardiology [address] [place] [address] [place] [phone] Mando Luna MD 01/19/2025 Telephone [facility] Cardiology [address] [place] [address] [place] [phone] Mando Luna MD from Last 3 Months [...] ELU 10/15/2016 - Hypertension Myocardial infarction (HCC) 2010 Coronary artery disease Bypass 3 vessels Hypothyroidism [...] on file Legal Sex Male 8:49 AM JOURNALISTS AND OTHER WRITERS Gender Identity Not on file Sexual Orientation Not on file Obstetrics History Last Filed Vital Signs Vital Sign Reading Time Taken Comments Blood Pressure 138/70 03/16/2025 2:40 PM CDT Pulse 88 03/16/2025 2:40 PM CDT Temperature 36.3 C (97.4 F) 09/22/2024 1:04 PM JOURNALISTS AND OTHER WRITERS Respiratory Rate 18 09/22/2024 1:04 PM JOURNALISTS AND OTHER WRITERS Oxygen Saturation 97% 03/16/2025 2:40 PM CDT [...] 09/01/2025 09/01/2024 Medical Devices Implanted Type Area General Assembler Installer Device Identifier Shelf Expiration Date Model / Serial / Lot [id number] [employer] 1.32mm 4.8mm Modify Ear T Tube Ventilation Ultrasil Sterile Blue [id number] - [id number] Implanted:Qty: 1 on 09/22/2024 by Laura Oakes DO at [facility] Right: Ear [id number] [employer] 07/13/2034 [id number] / / [id number] Insurance MEDICARE MEDICARE [facility] MEDICARE SUPPLEMENT Care Teams Groover Operator Relationship Specialty Start Date End Date Demond Strak MD PCP - General 07/23/11
--- OUTSIDE RECORDS SUMMARY | 2025-04-18 14:35 | XMS_ITS | Clinical Summary ---
Author Organization [facility] Address [address] [place] [address] Care Team Providers Care Data Sciences Director Name Role Phone Demond Stark MD Primary Care Provider [phone] Source Comments [facility]non-owned Affiliates and Associated Physician Practices is amultiple site organization consisting of ambulatory clinics and hospital sitesin [place], [place], [place] and [place]. This disclosure is being madepursuant to the Care Everywhere program and may not contain all information available regarding this patient. Last updated 18.[facility] Allergies Active Allergy Reactions Criticality Noted [...] 07/20/2013 Overview (01/01/2025): Hypertension Coronary arteriosclerosis in [place] artery 12/20 Overview (01/01/2025): IRENE MICHAELCL NGOC VSSL 2010: Non STEMI and CABG x3 (HOBSON to the LAD, sequential RA to OM and D1) History of coronary artery bypass surgery 2009 Overview (01/01/2025): AORTOCORONARY BYPASS Encounters Date Type Department Care Team Description 02/05/2025 8:30 AM CDT Office Visit [facility] - GI [address] [place] [address] Callie Mendoza DO Zenker's diverticulum (Primary Dx); [...] and heating? Not hard at all 12/25/2024 [facility] Occup[facility] - Occupational Stress [...] any time in the past 12 m [facility], were you homeless or living in a long-term (including now)? 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 Gender Identity Not on file Sexual [...] Info) Description 04/29/2025 10:00 AM CDT Appointment [facility] [address] [place] [address] Callie Mendoza DO [address] [place] [phone] 04/29/2025 1:00 PM CDT Office Visit [facility] - Neurology [address] [place] [address], [place] [phone] Arlen Syedciara, RECYCLING PROGRAM MANAGER-SWIMMER [address] [address] [address] [place] [phone] 02/04/2026 9:00 AM CDT Office Visit [facility] - GI [address] [place] [address], [place] [phone] Callie Mendoza DO [address] [facility] [address] [address] [place] [phone] Health Maintenance Due Date Last Done Comments [...] supplements as ordered Collaborate with the clinical bar steward Oral care Use soft toothbrushes Keep hydrated Insurance MEDICARE [facility] MEDICARE Advance Directives * Full Code (Latest Code Status on File) Date Activated Date Inactivated Comments 12/22/2024 4:39 PM 12/25/2024 7:01 PM Care Teams Data Sciences Director Relationship Specialty Start Date End Date Demond Stark MD [address] [place] [phone] PCP - General 10/03/15
--- OUTSIDE RECORDS SUMMARY | 2025-04-18 14:35 | XMS_ITS | Encounter Summary ---
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 Gender Identity Not on file Sexual Orientation Not on file documented as of this encounter Plan of Treatment Not on file documented as of this encounter Procedures Procedure Name Priority Date/Time Associated Diagnosis Comments SCAN - RADIOLOGY/IMAGING 11/06/2024 documented in this encounter Results * SCAN - RADIOLOGY/IMAGING (11/06/2024) Anatomical Region Laterality Modality Other us Provider Scanning Edited Result - Final documented in this encounter Visit Diagnoses Not on filedocumented in this encounter Care Teams Store Operations Specialist Relationship Specialty Start Date End Date Demond Stark MD PCP - General 07/23/11 documented as of this encounter
--- OUTSIDE RECORDS SUMMARY | 2025-04-18 14:35 | XMS_ITS | Encounter Summary ---
Author Organization [facility] Address [address] [place] [address] Care Team Providers Care Pan Washer Hand Name Role Phone Unavailable Primary Care Provider Unavailabl e Encounter Details Date Type Department Care Team (Late st Contact Info) Description 10/10/2023 Lab Requisition [facility] Laboratory Services [address] [place] [address] [place] [address] [place] [address] Social History Tobacco Use Types Packs/Day Years Used Date Smoking Tobacco: Never Assessed Sex and Gender Information Value Date Recorded Sex Assigned at Not on file Legal Sex Male 9:18 AM PHYSICIAN LIAISON Gender Identity Not on file Sexual Orientation Not on file documented as of this encounter Plan of Treatment Not on file documented as of this encounter Procedures Procedure Name Priority Date/Time Associated Diagnosis Comments CARBAPENEM RESISTANT ORGANISM Routine 10/09/2023 9:30 PM PHYSICIAN LIAISON SPUTUM CULTURE WITH GRAM STAIN Routine 10/09/2023 9:30 PM PHYSICIAN LIAISON documented in this encounter Results * (ABNORMAL) CARBAPENEM RESISTANT ORGANISM (10/09/2023 9:30 PM PHYSICIAN LIAISON) ORGANISM TESTED Klebsiella pneumoniae 10/12/2023 4:25 PM PHYSICIAN LIAISON [facility] Carbapenem Resistance Gene Detected(A) Not Detected 10/12/2023 4:25 PM PHYSICIAN LIAISON [facility] KPC (carbapenem-re sistance gene) by PCR DETECTED(A) Not Detected 10/12/2023 4:25 PM PHYSICIAN LIAISON [facility] Sputum Collection / Unknown 10/09/2023 9:30 PM PHYSICIAN LIAISON 10/10/2023 9:54 AM PHYSICIAN LIAISON [facility] - 10/12/2023 4:25 PM PHYSICIAN LIAISON This isolate is a carbapenem-resistant Organism (LATCHER) AND is a carbapenamase-field producer. If inpatient, place patient in Enhanced Contact Isolation. The CepCista System Xpert Carba-R PCR assay detects the presence of KPC, NDM, VIM, OXA- 48, and IMP gene sequences that induce carbapenemase production in gram negative bacteria. This test was performed using an FDA approved screening methodology. Erik Chairez MD MICROBIOLOGY - GENERAL ORDERABLE S Final Result [facility]# [id number] [address] [place] [address] * (ABNORMAL) SPUTUM CULTURE WITH GRAM STAIN (10/09/2023 9:30 PM PHYSICIAN LIAISON) CULTURE KLEBSIELLA PNEUMONIAE(A) LUCINA MCG/ML 10/17/2023 10:47 AM PHYSICIAN LIAISON [facility] Comment: This isolate is a Carbapenem-Resistant Organism AND is a carbapenemase field producer (LATCHER-CP). If inpatient, place patient in Enhanced Contact Isolation. Multiple drug resistant organism (MDRO). CULTURE Absent Normal Shahrzad LUCINA MCG/ML 10/17/2023 10:47 AM [facility] GRAM STAIN Non diagnostic pattern LUCINA MCG/ML 10/17/2023 10:47 AM [facility] GRAM STAIN No WBC observed 10/17/2023 10:47 AM [facility] Sputum Collection / Unknown 10/09/2023 9:30 PM PHYSICIAN LIAISON 10/10/2023 9:54 AM PHYSICIAN LIAISON [facility] - 10/17/2023 10:47 AM PHYSICIAN LIAISON Results called to Kelly Suarez RN, Rosalie [...] pneumoniae AZTREONAM ARMSTRONG-HERMOSILLO Resistant Klebsiella pneumoniae GENTAMICIN ARMSTRONG-HERMOSILOL Susceptible Klebsiella pneumoniae TOBRAMYCIN ARMSTRONG-HERMOSILLO Intermediate Klebsiella [...] Edited Result - Final Performing Organization Address City/State/[facility] Co de Phone Number [facility]# [id number] [address] [place] [address] documented in this encounter Visit Diagnoses Not on filedocumented in this encounter Additional Health Concerns Infection Onset Date Last Indicated Resolved Time CRE-CP Comment:10/09/23 Klebsiella pneumoniae, Sputum 10/09/2023 10/09/2023 05/28/2024 2:37 PM C DT Multi Drug Resistant Organis m (MDRO) Comment:10/09/23 Klebsiella pneumoniae, CRE-CP organism, Sputum 10/09/2023 10/09/2023 LATCHER-CP Comment:10/09/23 Klebsiella pneumoniae, Sputum 10/09/2023 05/28/2024 documented as of this encounter
--- OUTSIDE RECORDS SUMMARY | 2025-04-18 14:35 | XMS_ITS | Encounter Summary ---
Author Organization [facility] Address [address] [place] [address] Care Team Providers Care Mortgage Field Inspector Name Role Phone Demond Stark MD Primary Care Provider [phone] Encounter Details Date Type Department Care Team (Late st Contact Info) Description 10/16/2016 Orders Only [facility] ProviderTaylor MD [address] [place], [place] [id number] Social History Tobacco Use Types Packs/Day Years Used Date Smoking Tobacco: Former Cigarettes Q uit: 09/23/1969 Alcohol Use Standard Drinks/Week Comments Yes 0 (1 standard drink = 0.6 oz pur e alcohol) Sex and Gender Information Value Date Recorded Sex Assigned at Not on file Legal Sex Male 8:49 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
--- OUTSIDE RECORDS SUMMARY | 2025-04-18 14:35 | XMS_ITS | Encounter Summary ---
Author Organization [facility] Address [address] [place] [address] Care Team Providers Care Industrial X Ray Operator Name Role Phone Unavailable Primary Care Provider Unavailabl e Encounter Details Date Type Department Care Team (Late st Contact Info) Description 10/10/2023 Lab Requisition [facility] Laboratory Services [address] [place] [address] [place] [address] [place] [address] Social History Tobacco Use Types Packs/Day Years Used Date Smoking Tobacco: Never Assessed Sex and Gender Information Value Date Recorded Sex Assigned at Not on file Legal Sex Male 9:18 AM ENGINEER SYSTEM ADMINISTRATOR Gender Identity Not on file Sexual Orientation Not on file documented as of this encounter Plan of Treatment Not on file documented as of this encounter Procedures Procedure Name Priority Date/Time Associated Diagnosis Comments CBC WITH DIFFERENTIAL Routine 10/10/2023 3:30 AM ENGINEER SYSTEM ADMINISTRATOR PTT Routine 10/10/2023 3:30 AM ENGINEER SYSTEM ADMINISTRATOR PROTIME-INR Routine 10/10/2023 3:30 AM ENGINEER SYSTEM ADMINISTRATOR PREALBUMIN Routine 10/10/2023 3:30 AM ENGINEER SYSTEM ADMINISTRATOR COMPREHENSIVE METABOLIC PANEL Routine 10/10/2023 3:30 AM ENGINEER SYSTEM ADMINISTRATOR documented in this encounter Results * PTT (10/10/2023 3:30 AM ENGINEER SYSTEM ADMINISTRATOR) PTT 23.4 23.1 - 37.1 seconds 10/10/2023 10:14 AM ENGINEER SYSTEM ADMINISTRATOR [facility] LABORATORY SERVICES [facility] Blood Collection / Unknown 10/10/2023 3:30 AM ENGINEER SYSTEM ADMINISTRATOR 10/10/2023 9:51 AM ENGINEER SYSTEM ADMINISTRATOR Erik Chairez MD HEMATOLOGY ORDERABLES Final Resu lt [facility] CLIA# [id number] [address] [place] [address] * (ABNORMAL) PROTIME-INR (10/10/2023 3:30 AM ENGINEER SYSTEM ADMINISTRATOR) PROTIME 15.0(H) 11.5 - 14.7 Seconds 10/10/2023 10:14 AM ENGINEER SYSTEM ADMINISTRATOR [facility] LABORATORY [facility] INR 1.2(H) 0.9 - 1.1 10/10/2023 10:14 AM ENGINEER SYSTEM ADMINISTRATOR [facility]OR[facility] Blood Collection / Unknown 10/10/2023 3:30 AM ENGINEER SYSTEM ADMINISTRATOR 10/10/2023 9:51 AM ENGINEER SYSTEM ADMINISTRATOR Erik Chairez MD HEMATOLOGY ORDERABLES Final Resu lt [facility] Collactive [facility] CLIA# [id number] [address] [place] [address] * PREALBUMIN (10/10/2023 3:30 AM ENGINEER SYSTEM ADMINISTRATOR) PREALBUMIN 23 20 - 40 mg/dL 10/10/2023 2:24 PM ENGINEER SYSTEM ADMINISTRATOR [facility] LABORATORY [facility] Blood Collection / Unknown 10/10/2023 3:30 AM ENGINEER SYSTEM ADMINISTRATOR 10/10/2023 9:51 AM ENGINEER SYSTEM ADMINISTRATOR Erik Chairez MD CHEMISTRY ORDERABLES Final Resul t [facility] Collactive [facility] CLIA# [id number] [address] [place] [id number] * (ABNORMAL) CBC WITH DIFFERENTIAL (10/10/2023 3:30 AM ENGINEER SYSTEM ADMINISTRATOR) [facility] WBC 10.1 4.5 - 10.5 K/uL 10/10/2023 11:06 AM [facility] RBC 3.85(L) 4.50 - 5.40 M/uL 10/10/2023 11:06 AM [facility] HEMOGLOBIN 11.6(L) 13.6 - 16.5 g/dL 10/10/2023 11:06 AM [facility] Collactive [facility] HEMATOCRIT 36.6(L) 40.0 - 48.0 % 10/10/2023 11:06 AM [facility] Collactive [facility] MCV 95.2 82.0 - 99.0 fL 10/10/2023 11:06 AM [facility] Collactive [facility] MCH 30.1 27.8 - 34.5 pg 10/10/2023 11:06 AM [facility] Collactive [facility] MCHC 31.6(L) 32.5 - 35.5 g/dL 10/10/2023 11:06 AM [facility] Collactive [facility] RDW 19.2(H) 11.5 - 14.5 % 10/10/2023 11:06 AM [facility] Collactive [facility] PLATELETS 250 160 - 420 K/uL 10/10/2023 11:06 AM [facility] Collactive [facility] MPV 9.8 8.7 - 12.7 fL 10/10/2023 11:06 AM [facility] Collactive [facility] NEUTROPHILS 72 % 10/10/2023 11:06 AM [facility] Collactive [facility] LYMPHOCYTES 15 % 10/10/2023 11:06 AM ENGINEER SYSTEM ADMINISTRATOR [facility] MONOCYTES 7 % 10/10/2023 11:06 AM ENGINEER SYSTEM ADMINISTRATOR [facility] LABOR[facility] EOSINOPHILS 5 % 10/10/2023 11:06 AM ENGINEER SYSTEM ADMINISTRATOR [facility] LABOR[facility] BASOPHILS 0 % 10/10/2023 11:06 AM [facility] LABORAT[facility] NEUTROPHIL ABSOLUTE 7.20(H) 1.90 - 7.00 K/uL 10/10/2023 11:06 AM [facility] Collactive [facility] LYMPHOCYTE ABSOLUTE 1.50 0.70 - 4.50 K/uL 10/10/2023 11:06 AM ENGINEER SYSTEM ADMINISTRATOR [facility] LABOR[facility] MONOCYTE ABSOLUTE 0.70 0.10 - 1.30 K/uL 10/10/2023 11:06 AM ENGINEER SYSTEM ADMINISTRATOR [facility] LABORATORY [facility] EOSINOPHIL ABSOLUTE 0.50 0.00 - 0.70 K/uL 10/10/2023 11:06 AM ENGINEER SYSTEM ADMINISTRATOR [facility] LABORATORY [facility] BASOPHILS ABSOLUTE 0.00 0.00 - 0.20 K/uL 10/10/2023 11:06 AM ENGINEER SYSTEM ADMINISTRATOR [facility] Collactive [facility] Blood Collection / Unknown 10/10/2023 3:30 AM ENGINEER SYSTEM ADMINISTRATOR 10/10/2023 9:51 AM ENGINEER SYSTEM ADMINISTRATOR us Erik Chairez MD HEMATOLOGY ORDERABLES Final Resu lt [facility] CLIA# [id number] [address] [place] [address] * (ABNORMAL) COMPREHENSIVE METABOLIC PANEL (10/10/2023 3:30 AM ENGINEER SYSTEM ADMINISTRATOR) SODIUM 142 136 - 145 mmol/L 10/10/2023 10:49 AM [facility] Collactive [facility] POTASSIUM 4.1 3.4 - 5.1 mmol/L 10/10/2023 10:49 AM [facility] Collactive [facility] CHLORIDE 104 98 - 107 mmol/L 10/10/2023 10:49 AM [facility] Collactive [facility] CO2 23 22 - 29 mmol/L 10/10/2023 10:49 AM [facility] Collactive [facility] CALCIUM 9.4 8.6 - 10.4 mg/dL 10/10/2023 10:49 AM [facility] Collactive [facility] BUN 34(H) 6 - 20 mg/dL 10/10/2023 10:49 AM [facility] Collactive [facility] CREATININE 1.24(H) 0.67 - 1.17 mg/dL 10/10/2023 10:49 AM [facility] LABORAT[facility] Comment:The GFR result is no t clinically significant on patients <18 or >70 years of age. GLUCOSE 91 74 - 99 mg/dL 10/10/2023 10:49 AM [facility] TOTAL PROTEIN 7.4 6.3 - 8.7 g/dL 10/10/2023 10:49 AM [facility] ALBUMIN 3.6 3.5 - 5.2 g/dL 10/10/2023 10:49 AM [facility] BILIRUBIN TOTAL 0.6 0.2 - 1.1 mg/dL 10/10/2023 10:49 AM [facility] ALKALINE PHOSPHATASE 84 40 - 150 U/L 10/10/2023 10:49 AM [facility] AST 15 0 - 41 U/L 10/10/2023 10:49 AM [facility] ALT 13 0 - 41 U/L 10/10/2023 10:49 AM [facility] GFR 58 mL/min/1.7 3 sq meter 10/10/2023 10:49 AM [facility] Comment:eGFR calculated with 2020 CKD-EPI equation. Vegetarian diet, extremely high or low muscle mass, and may affect results. Cystatin C with Glomerular Filtration Rate is a suitable alternative for these patients. ANION GAP 15 8 - 16 mmol/L 10/10/2023 10:49 AM [facility] Blood Collection / Unknown 10/10/2023 3:30 AM ENGINEER SYSTEM ADMINISTRATOR 10/10/2023 9:51 AM ENGINEER SYSTEM ADMINISTRATOR us Erik Chairez MD CHEMISTRY ORDERABLES Final Resul t [facility] CLIA# [id number] [address] [place] [address] documented in this encounter Visit Diagnoses Not on filedocumented in this encounter Additional Health Concerns Infection Onset Date Last Indicated Resolved Time CRE-CP Comment:10/09/23 Klebsiella pneumoniae, Sputum 10/09/2023 10/09/2023 05/28/2024 2:37 PM C DT Multi Drug Resistant Organis m (MDRO) Comment:10/09/23 Klebsiella pneumoniae, CRE-CP organism, Sputum 10/09/2023 10/09/2023 SHIRRING MACHINE OPERATOR-CP Comment:10/09/23 Klebsiella pneumoniae, Sputum 10/09/2023 05/28/2024 documented as of this encounter
--- OUTSIDE RECORDS SUMMARY | 2025-04-18 14:35 | XMS_ITS | Clinical Summary ---
Author Organization [facility] Address [address] [place] [address] Care Team Providers Care Parcel Post Truck Driver Name Role Phone Demond Stark MD Primary Care Provider [phone] Encounters Date Type Department Care Team Description 04/07/2025 Documentation Only [facility] Alan. [address] [facility] [address] [place] [phone] Raúl Ross MD 03/31/2025 Orders Only [facility] Alan. [address] [facility] [place] [address] Rula Caballero MA Hypertension (Primary Dx); Long-term drug therapy 03/10/2025 Documentation Only [facility]. [address] [facility] [place] [address] Raúl Ross MD 03/02/2025 Orders [facility] Alan. [address] [facility] [address] [place] [phone] Rula [address] MA Renal insufficiency (Primary Dx); Hypertension; Other proteinuria 03/02/2025 Orders Only [facility] Alan. [address] [facility] [place] [address] Rula [address] MA Renal insufficiency (Primary Dx); [...] Vaccine (#1) 2025 07/24/2010, 2009 Care Teams Parcel Post Truck Driver Relationship Specialty Start Date End Date Demond Stark MD [address] [address] PCP - General Family Medicine 06/04/24
--- OUTSIDE RECORDS SUMMARY | 2025-04-18 14:35 | XMS_ITS | Encounter Summary ---
Author Organization [facility] Address [address] [facility] [place] [address] Care Team Providers Care Electric Motor Analyst Name Role Phone Demond Stark MD Primary Care Provider [phone] Encounter Details Date Type Department Care Team (Late Contact Info) Description 06/28/2023 Lab Requisition [facility] DermPath Lab [address] [facility] [place] [address] Jaxon Anaya MD [address] [place], [place] [id number] Social History Tobacco Use Types Packs/Day Years Used Date Smoking Tobacco: Former Cigarettes Q uit: 09/23/1969 Smokeless Tobacco: Never Alcohol Use Standard Drinks/Week Comments Yes 0 (1 standard drink = 0.6 oz pur e alcohol) Sex and Gender Information Value Date Recorded Sex Assigned at Not on file Legal Sex Male 5:43 PM MAGAZINE FEEDER Gender Identity Not on file Sexual Orientation Not on file documented as of this encounter Plan of Treatment Upcoming Encounters Date Type Department Care Team (Late Contact Info) Description 04/29/2025 10:00 AM CDT Appointment [facility] DIAGNOSTIC RAD [address] [place] [phone] Callie Mendoza DO [address] [facility] [address] FLO[address] DO[address] 1 [place] [phone] 04/29/2025 1:00 PM CDT Office Visit [facility] - Neurology [address] [facility] [place] [address] Venus Mckinley, PRINTING FILM STRIPPER-HORSE BREEDER [address] [facility] 1L [place] [address] 02/04/2026 9:00 AM CDT Office Visit [facility] Physician Group - GI [address] [facility] [place] [address] KellyCallie [address] [facility] [address] F[address] DO[address] 1 [place] [address] documented as of this encounter Procedures Procedure Name Priority Date/Time Associated Diagnosis Comments DERMATOPATHOLOGY Routine 06/26/2023 12:0 0 AM CDT documented in this encounter Results * DERMATOPATHOLOGY (06/26/2023 12:00 AM CDT) Case Report Dermatopathology Report Case: [id number] Authorizing Provider: Jaxon Anaya MD Collected: 06/26/2023 [...] back.The specimen consists of an ellipse measuring 29m98w70 mm and is oriented with the suture/notch [...] characteristic determined by the Dermatopathology Laboratory at [facility], directed by Dr. Georgina Young. These tests need not be, and therefore are not, approved by the [place] Food and Drug Administration. The tests are used for clinical purposes. Billing Codes Specimen Charges Stain Charges 96356 1 3 4:58 PM CDT DERMATOPATHOLOGY LABORATORY Embedded Images 3 4:58 PM CDT DERMATOPATHOLOGY LABORATORY Pathology/Cytolog y TISSUE SPECIMEN FROM SKIN / Unknown 06/26/2023 06/28/2023 9:48 AM CDT Jaxon Anaya MD LAB - PATHOLOGY/CYTOLOGY ORD ERABLES Final Result DERMATOPATHOLOGY LABORATORY [facility] - Department of Dermatology [facility] Medicine [address] [place] [address], [address] [phone] documented in this encounter Visit Diagnoses Not on filedocumented in this encounter Care Teams Electric Motor Analyst Relationship Specialty Start Date End Date Demond Stark MD [address] [place] [address] PCP - General 10/03/15 documented as of this encounter
--- OUTSIDE RECORDS SUMMARY | 2025-04-18 14:35 | XMS_ITS | Encounter Summary ---
Author Organization [facility] Address [address] [facility] [place] [address] Care Team Providers Care Electronics Instructor Name Role Phone Demond Stark MD Primary Care Provider [phone] Encounter Details Date Type Department Care Team (Late Contact Info) Description 06/13/2023 Lab Requisition [facility] Lab [address] [facility], [place] [address] Jaxon Anaya MD [address] [place], [place] [id number] Social History Tobacco Use Types Packs/Day Years Used Date Smoking Tobacco: Former Cigarettes Q uit: 09/23/1969 Smokeless Tobacco: Never Alcohol Use Standard Drinks/Week Comments Yes 0 (1 standard drink = 0.6 oz pur e alcohol) Sex and Gender Information Value Date Recorded Sex Assigned at Not on file Legal Sex Male 5:43 PM PLANNING INTERN Gender Identity Not on file Sexual Orientation Not on file documented as of this encounter Plan of Treatment Upcoming Encounters Date Type Department Care Team (Late Contact Info) Description 04/29/2025 10:00 AM CDT Appointment [facility] DIAGNOSTIC RAD [address] [place] [phone] Callie Mendoza DO [address] [facility] 3RD FLOOR DOOR 1 [place] [phone] 04/29/2025 1:00 PM CDT Office Visit [facility] - Neurology [address] [facility], [place] [address] Venus Mckinley, HOURLY MANAGER-FINISHED GOODS INSPECTOR [address] [facility] 1L [place] [address] 02/04/2026 9:00 AM CDT Office Visit [facility] Physician Group - GI [address] [facility], [place] [address] Callie Mendoza [address] [facility] [address]RD FLO[address] 1 [place] [address] documented as of this encounter Procedures Procedure Name Priority Date/Time Associated Diagnosis Comments DERMATOPATHOLOGY Routine 06/12/2023 12:0 0 AM CDT documented in this encounter Results * DERMATOPATHOLOGY (06/12/2023 12:00 AM CDT) Case Report Dermatopathology Report Case: [id number] Authorizing Provider: Jaxon Anaya MD Collected: 06/12/2023 12:00 AM Ordering Location: [facility] DermPath Lab Received: 06/13/2023 01:28 PM Pathologist: [...] specimen consists of a shave biopsy measuring 00g13p3 mm. Jar 0. 3 3:42 PM CDT [...] characteristic determined by the Dermatopathology Laboratory at [facility], directed by Dr. Georgina Young. These tests need not be, and therefore are not, approved by the [place] Food and Drug Administration. The tests are used for clinical purposes. Billing Codes Specimen Charges Stain Charges 50757 1 18292 1 3 3:42 PM CDT DERMATOPATHOLOGY LABORATORY Embedded Images 3 3:42 PM CDT DERMATOPATHOLOGY LABORATORY Pathology/Cytolog y TISSUE SPECIMEN FROM SKIN / Unknown 06/12/2023 06/13/2023 1:28 PM CDT Jaxon Anaya MD LAB - PATHOLOGY/CYTOLOGY ORD ERABLES Final Result DERMATOPATHOLOGY LABORATORY [facility] Department of Dermatology [address], [address] [phone] documented in this encounter Visit Diagnoses Not on filedocumented in this encounter Care Teams Electronics Instructor Relationship Specialty Start Date End Date Demond Stark MD [address] [place] [address] PCP - General 10/03/15 documented as of this encounter
--- OUTSIDE RECORDS SUMMARY | 2025-04-18 14:35 | XMS_ITS | Clinical Summary ---
Author Organization [facility] Address [address] [place] [address] Phone Care Team Providers Care Grinding Machine Operator Portable Name Role Phone Unavailable Primary Care Provider Unavailabl e Social History Tobacco Use Types Packs/Day Years Used Date Smoking Tobacco: Never Assessed Sex and Gender Information Value Date Recorded Sex Assigned at Not on file Legal Sex Male 9:18 AM ACCESS CONTROL SPECIALIST Gender Identity Not on file Sexual [...] Klebsiella pneumoniae, CRE-CP organism, Sputum 10/09/2023 10/09/2023 BIN FILLER-CP Comment:10/09/23 Klebsiella pneumoniae, Sputum 10/09/2023 05/28/[address] [place] [address]
--- OUTSIDE RECORDS SUMMARY | 2025-04-18 14:36 | XMS_ITS | Encounter Summary ---
Author Organization [facility] Address [address] [place] [address] Care Team Providers Care Video Game Tester Name Role Phone Unavailable Primary Care Provider Unavailabl e Encounter Details Date Type Department Care Team (Late st Contact Info) Description 11/05/2023 Lab Requisition [facility] Laboratory Services [address] [place] [address] [place] [address] [place] [address] Social History Tobacco Use Types Packs/Day Years Used Date Smoking Tobacco: Never Assessed Sex and Gender Information Value Date Recorded Sex Assigned at Not on file Legal Sex Male 9:18 AM GRAPHICS MANAGER Gender Identity Not on file Sexual Orientation Not on file documented as of this encounter Plan of Treatment Not on file documented as of this encounter Procedures Procedure Name Priority Date/Time Associated Diagnosis Comments DIFFERENTIAL, MANUAL Routine 11/05/2023 3:30 AM GRAPHICS MANAGER CBC WITH DIFFERENTIAL Routine 11/05/2023 3:30 AM GRAPHICS MANAGER documented in this encounter Results * MANUAL DIFFERENTIAL (11/05/2023 3:30 AM GRAPHICS MANAGER) PLATELET EST. Consistent w Count 11/05/2023 6:05 AM GRAPHICS MANAGER [facility] RBC MORPHOLOGY Normal 11/05/2023 6:05 AM GRAPHICS MANAGER [facility] Blood Collection / Unknown 11/05/2023 3:30 AM GRAPHICS MANAGER 11/05/2023 5:05 AM GRAPHICS MANAGER Erik Chairez MD HEMATOLOGY ORDERABLES COM Final Result [facility] CLIA# [id number] [address] [place] [address] * (ABNORMAL) CBC WITH DIFFERENTIAL (11/05/2023 3:30 AM GRAPHICS MANAGER) [facility] WBC 7.5 4.5 - 10.5 K/uL 11/05/2023 6:05 AM [facility] LABORATORY [facility] RBC 3.81(L) 4.50 - 5.40 M/uL 11/05/2023 6:05 AM [facility] [place] HEMOGLOBIN 11.9(L) 13.6 - 16.5 g/dL 11/05/2023 6:05 AM [facility] [place] HEMATOCRIT 35.6(L) 40.0 - 48.0 % 11/05/2023 6:05 AM [facility] Docin [facility] MCV 93.5 82.0 - 99.0 fL 11/05/2023 6:05 AM [facility] Docin [facility] MCH 31.2 27.8 - 34.5 pg 11/05/2023 6:05 AM [facility] Docin [facility] MCHC 33.3 32.5 - 35.5 g/dL 11/05/2023 6:05 AM [facility] Docin [facility] RDW 17.0(H) 11.5 - 14.5 % 11/05/2023 6:05 AM [facility] Docin [facility] PLATELETS 243 160 - 420 K/uL 11/05/2023 6:05 AM [facility] Docin [facility] MPV 9.4 8.7 - 12.7 fL 11/05/2023 6:05 AM [facility] LABORATORY [facility] NEUTROPHILS 63 % 11/05/2023 6:05 AM GRAPHICS MANAGER [facility] Docin [facility] LYMPHOCYTES 23 % 11/05/2023 6:05 AM GRAPHICS MANAGER [facility] LABORATORY [facility] MONOCYTES 5 % 11/05/2023 6:05 AM [facility] LABORATORY [facility] EOSINOPHILS 9 % 11/05/2023 6:05 AM GRAPHICS MANAGER [facility] LABORATORY [facility] BASOPHILS 1 % 11/05/2023 6:05 AM GRAPHICS MANAGER [facility] LABORATORY [facility] NEUTROPHIL ABSOLUTE 4.70 1.90 - 7.00 K/uL 11/05/2023 6:05 AM GRAPHICS MANAGER [facility] LABORATORY [facility] LYMPHOCYTE ABSOLUTE 1.70 0.70 - 4.50 K/uL 11/05/2023 6:05 AM GRAPHICS MANAGER [facility] LABORATORY [facility] MONOCYTE ABSOLUTE 0.40 0.10 - 1.30 K/uL 11/05/2023 6:05 AM GRAPHICS MANAGER [facility] LABORATORY [facility] EOSINOPHIL ABSOLUTE 0.70 0.00 - 0.70 K/uL 11/05/2023 6:05 AM GRAPHICS MANAGER [facility] LABORATORY SERVICES - [facility] BASOPHILS ABSOLUTE 0.00 0.00 - 0.20 K/uL 11/05/2023 6:05 AM GRAPHICS MANAGER [facility] LABORATORY [facility] Blood Collection / Unknown 11/05/2023 3:30 AM GRAPHICS MANAGER 11/05/2023 5:05 AM GRAPHICS MANAGER Erik Chairez MD HEMATOLOGY ORDERABLES Final Resu lt [facility] CLIA# [id number] [address] [place] [address] documented in this encounter Visit Diagnoses Not on filedocumented in this encounter Additional Health Concerns Infection Onset Date Last Indicated Resolved Time 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
--- OUTSIDE RECORDS SUMMARY | 2025-04-18 14:36 | XMS_ITS | Encounter Summary ---
Author Organization [facility] Address [address] [place] [address] Care Team Providers Care Furniture Dipper Name Role Phone Unavailable Primary Care Provider Unavailabl e Encounter Details Date Type Department Care Team (Late st Contact Info) Description 11/07/2023 Lab Requisition [facility] Laboratory Services [address] [place] [address] [place] [address] [place] [address] Social History Tobacco Use Types Packs/Day Years Used Date Smoking Tobacco: Never Assessed Sex and Gender Information Value Date Recorded Sex Assigned at Not on file Legal Sex Male 9:18 AM HAND PICKER Gender Identity Not on file Sexual Orientation Not on file documented as of this encounter Plan of Treatment Not on file documented as of this encounter Procedures Procedure Name Priority Date/Time Associated Diagnosis Comments CBC WITH DIFFERENTIAL Routine 11/07/2023 4:30 AM HAND PICKER BASIC METABOLIC PANEL Routine 11/07/2023 4:30 AM HAND PICKER documented in this encounter Results * (ABNORMAL) CBC WITH DIFFERENTIAL (11/07/2023 4:30 AM HAND PICKER) WBC 9.4 4.5 - 10.5 K/uL 11/07/2023 8:10 AM HAND PICKER [facility] RBC 4.06(L) 4.50 - 5.40 M/uL 11/07/2023 8:10 AM HAND PICKER [facility] HEMOGLOBIN 11.9(L) 13.6 - 16.5 g/dL 11/07/2023 8:10 AM HAND PICKER [facility] HEMATOCRIT 37.1(L) 40.0 - 48.0 % 11/07/2023 8:10 AM HAND PICKER [facility] MCV 91.5 82.0 - 99.0 fL 11/07/2023 8:10 AM HAND PICKER [facility] MCH 29.4 27.8 - 34.5 pg 11/07/2023 8:10 AM HAND PICKER [facility] MCHC 32.1(L) 32.5 - 35.5 g/dL 11/07/2023 8:10 AM HAND PICKER [facility] RDW 16.9(H) 11.5 - 14.5 % 11/07/2023 8:10 AM HAND PICKER [facility] PLATELETS 270 160 - 420 K/uL 11/07/2023 8:10 AM HAND PICKER [facility] MPV 10.0 8.7 - 12.7 fL 11/07/2023 8:10 AM HAND PICKER [facility] NEUTROPHILS 61 % 11/07/2023 8:10 AM HAND PICKER [facility] LYMPHOCYTES 21 % 11/07/2023 8:10 AM HAND PICKER [facility] MONOCYTES 6 % 11/07/2023 8:10 AM HAND PICKER [facility] EOSINOPHILS 11 % 11/07/2023 8:10 AM HAND PICKER [facility] BASOPHILS 1 % 11/07/2023 8:10 AM HAND PICKER [facility] NEUTROPHIL ABSOLUTE 5.70 1.90 - 7.00 K/uL 11/07/2023 8:10 AM HAND PICKER [facility] LYMPHOCYTE ABSOLUTE 2.00 0.70 - 4.50 K/uL 11/07/2023 8:10 AM HAND PICKER [facility] MONOCYTE ABSOLUTE 0.60 0.10 - 1.30 K/uL 11/07/2023 8:10 AM HAND PICKER [facility] EOSINOPHIL ABSOLUTE 1.00(H) 0.00 - 0.70 K/uL 11/07/2023 8:10 AM HAND PICKER [facility] BASOPHILS ABSOLUTE 0.10 0.00 - 0.20 K/uL 11/07/2023 8:10 AM [facility] Blood 11/07/2023 4:30 AM HAND PICKER 11/07/2023 8:06 AM HAND PICKER us Erik Chairez MD HEMATOLOGY ORDERABLES Final Resu lt [facility] CLIA# [id number] [place] [address] * (ABNORMAL) BASIC METABOLIC PANEL (11/07/2023 4:30 AM HAND PICKER) SODIUM 137 136 - 145 mmol/L 11/07/2023 8:41 AM [facility] POTASSIUM 4.2 3.4 - 5.1 mmol/L 11/07/2023 8:41 AM [facility] CHLORIDE 100 98 - 107 mmol/L 11/07/2023 8:41 AM [facility] CO2 22 22 - 29 mmol/L 11/07/2023 8:41 AM [facility] CALCIUM 9.9 8.6 - 10.4 mg/dL 11/07/2023 8:41 AM [facility] BUN 41(H) 6 - 20 mg/dL 11/07/2023 8:41 AM [facility] CREATININE 1.03 0.67 - 1.17 mg/dL 11/07/2023 8:41 AM [facility] Comment:The GFR result is no t clinically significant on patients <18 or >70 years of age. GLUCOSE 109(H) 74 - 99 mg/dL 11/07/2023 8:41 AM [facility] GFR >60 mL/min/1.7 3 sq meter 11/07/2023 8:41 AM [facility] Comment:eGFR calculated with 2020 CKD-EPI equation. Vegetarian diet, extremely high or low muscle mass, and may affect results. Cystatin C with Glomerular Filtration Rate is a suitable alternative for these patients. ANION GAP 15 8 - 16 mmol/L 11/07/2023 8:41 AM HAND PICKER [facility] Blood 11/07/2023 4:30 AM HAND PICKER 11/07/2023 8:12 AM HAND PICKER rEik Chairez MD CHEMISTRY ORDERABLES Final Resul t [facility] CLIA# [id number] [address] [place] [address] documented in this encounter Visit Diagnoses Not on filedocumented in this encounter Additional Health Concerns Infection Onset Date Last Indicated Resolved Time CRE-CP Comment:10/09/23 Klebsiella pneumoniae, Sputum 10/09/2023 10/09/2023 05/28/2024 2:37 PM C DT 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
--- OUTSIDE RECORDS SUMMARY | 2025-04-18 14:36 | XMS_ITS | Encounter Summary ---
Author Organization [facility] Address [address] [place] [address] Care Team Providers Care Paper Winder Name Role Phone Unavailable Primary Care Provider Unavailabl e Encounter Details Date Type Department Care Team (Late st Contact Info) Description 10/26/2023 Lab Requisition [facility] Laboratory Services [address] [place] [address] [place] [address] [place] [address] Social History Tobacco Use Types Packs/Day Years Used Date Smoking Tobacco: Never Assessed Sex and Gender Information Value Date Recorded Sex Assigned at Not on file Legal Sex Male 9:18 AM RADIOLOGY TECHNICIAN Gender Identity Not on file Sexual Orientation Not on file documented as of this encounter Plan of Treatment Not on file documented as of this encounter Procedures Procedure Name Priority Date/Time Associated Diagnosis Comments CBC WITH DIFFERENTIAL Routine 10/26/2023 3:20 AM RADIOLOGY TECHNICIAN BASIC METABOLIC PANEL Routine 10/26/2023 3:20 AM RADIOLOGY TECHNICIAN documented in this encounter Results * (ABNORMAL) CBC WITH DIFFERENTIAL (10/26/2023 3:20 AM RADIOLOGY TECHNICIAN) WBC 9.2 4.5 - 10.5 K/uL 10/26/2023 5:32 AM RADIOLOGY TECHNICIAN [facility] RBC 3.83(L) 4.50 - 5.40 M/uL 10/26/2023 5:32 AM RADIOLOGY TECHNICIAN [facility] HEMOGLOBIN 11.4(L) 13.6 - 16.5 g/dL 10/26/2023 5:32 AM RADIOLOGY TECHNICIAN [facility] HEMATOCRIT 35.4(L) 40.0 - 48.0 % 10/26/2023 5:32 AM RADIOLOGY TECHNICIAN [facility] SERVICES [facility] MCV 92.4 82.0 - 99.0 fL 10/26/2023 5:32 AM RADIOLOGY TECHNICIAN [facility] MCH 29.6 27.8 - 34.5 pg 10/26/2023 5:32 AM RADIOLOGY TECHNICIAN [facility] MCHC 32.0(L) 32.5 - 35.5 g/dL 10/26/2023 5:32 AM RADIOLOGY TECHNICIAN [facility] RDW 17.3(H) 11.5 - 14.5 % 10/26/2023 5:32 AM RADIOLOGY TECHNICIAN [facility] SERVICES [facility] PLATELETS 240 160 - 420 K/uL 10/26/2023 5:32 AM RADIOLOGY TECHNICIAN [facility] MPV 9.3 8.7 - 12.7 fL 10/26/2023 5:32 AM RADIOLOGY TECHNICIAN [facility] NEUTROPHILS 69 % 10/26/2023 5:32 AM RADIOLOGY TECHNICIAN [facility] LYMPHOCYTES 21 % 10/26/2023 5:32 AM RADIOLOGY TECHNICIAN [employer] LABORAT[facility] SERVICES [facility] MONOCYTES 6 % 10/26/2023 5:32 AM RADIOLOGY TECHNICIAN [facility] EOSINOPHILS 4 % 10/26/2023 5:32 AM RADIOLOGY TECHNICIAN [facility] BASOPHILS 1 % 10/26/2023 5:32 AM RADIOLOGY TECHNICIAN [facility] NEUTROPHIL ABSOLUTE 6.30 1.90 - 7.00 K/uL 10/26/2023 5:32 AM RADIOLOGY TECHNICIAN [facility] LYMPHOCYTE ABSOLUTE 1.90 0.70 - 4.50 K/uL 10/26/2023 5:32 AM RADIOLOGY TECHNICIAN [facility] MONOCYTE ABSOLUTE 0.50 0.10 - 1.30 K/uL 10/26/2023 5:32 AM RADIOLOGY TECHNICIAN [facility] SERVICES [facility] EOSINOPHIL ABSOLUTE 0.40 0.00 - 0.70 K/uL 10/26/2023 5:32 AM RADIOLOGY TECHNICIAN [facility] SERVICES [facility] BASOPHILS ABSOLUTE 0.00 0.00 - 0.20 K/uL 10/26/2023 5:32 AM [facility] Blood Collection / Unknown 10/26/2023 3:20 AM RADIOLOGY TECHNICIAN 10/26/2023 4:57 AM RADIOLOGY TECHNICIAN Erik Chairez MD HEMATOLOGY ORDERABLES Final Resu lt [facility] CLIA# [id number] [place] [address] * (ABNORMAL) BASIC METABOLIC PANEL (10/26/2023 3:20 AM RADIOLOGY TECHNICIAN) SODIUM 137 136 - 145 mmol/L 10/26/2023 5:58 AM [facility] POTASSIUM 4.2 3.4 - 5.1 mmol/L 10/26/2023 5:58 AM [facility] CHLORIDE 100 98 - 107 mmol/L 10/26/2023 5:58 AM [facility] CO2 27 22 - 29 mmol/L 10/26/2023 5:58 AM [facility] CALCIUM 9.8 8.6 - 10.4 mg/dL 10/26/2023 5:58 AM [facility] BUN 39(H) 6 - 20 mg/dL 10/26/2023 5:58 AM [facility] CREATININE 1.01 0.67 - 1.17 mg/dL 10/26/2023 5:58 AM [facility] Comment:The GFR result is no t clinically significant on patients <18 or >70 years of age. GLUCOSE 110(H) 74 - 99 mg/dL 10/26/2023 5:58 AM [facility] GFR >60 mL/min/1.7 3 sq meter 10/26/2023 5:58 AM [facility] Comment:eGFR calculated with 2020 CKD-EPI equation. Vegetarian diet, extremely high or low muscle mass, and may affect results. Cystatin C with Glomerular Filtration Rate is a suitable alternative for these patients. ANION GAP 10 8 - 16 mmol/L 10/26/2023 5:58 AM RADIOLOGY TECHNICIAN [facility] Blood Collection / Unknown 10/26/2023 3:20 AM RADIOLOGY TECHNICIAN 10/26/2023 4:57 AM RADIOLOGY TECHNICIAN Erik Chairez MD CHEMISTRY ORDERABLES Final Resul t [facility] CLIA# [id number] [address] [place] [address] documented in this encounter Visit Diagnoses Not on filedocumented in this encounter Additional Health Concerns Infection Onset Date Last Indicated Resolved Time CRE-CP Comment:10/09/23 Klebsiella pneumoniae, Sputum 10/09/2023 10/09/2023 05/28/2024 2:37 PM C DT 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
--- OUTSIDE RECORDS SUMMARY | 2025-04-18 14:36 | XMS_ITS | Encounter Summary ---
Author Organization [facility] Address [address] [place] [address] Care Team Providers Care Groundskeeper Porter Name Role Phone Unavailable Primary Care Provider Unavailabl e Encounter Details Date Type Department Care Team (Late st Contact Info) Description 11/04/2023 Lab Requisition [facility] Laboratory Services [address] [place] [address] [place] [address] [place] [address] Social History Tobacco Use Types Packs/Day Years Used Date Smoking Tobacco: Never Assessed Sex and Gender Information Value Date Recorded Sex Assigned at Not on file Legal Sex Male 9:18 AM SECURITY ARCHITECT Gender Identity Not on file Sexual Orientation Not on file documented as of this encounter Plan of Treatment Not on file documented as of this encounter Procedures Procedure Name Priority Date/Time Associated Diagnosis Comments CBC WITH DIFFERENTIAL Routine 11/04/2023 3:45 AM SECURITY ARCHITECT BASIC METABOLIC PANEL Routine 11/04/2023 3:45 AM SECURITY ARCHITECT documented in this encounter Results * (ABNORMAL) CBC WITH DIFFERENTIAL (11/04/2023 3:45 AM SECURITY ARCHITECT) WBC 12.2(H) 4.5 - 10.5 K/uL 11/04/2023 8:52 AM SECURITY ARCHITECT [facility] - [facility] RBC 4.11(L) 4.50 - 5.40 M/uL 11/04/2023 8:52 AM SECURITY ARCHITECT [facility] HEMOGLOBIN 11.7(L) 13.6 - 16.5 g/dL 11/04/2023 8:52 AM SECURITY ARCHITECT [facility] HEMATOCRIT 37.9(L) 40.0 - 48.0 % 11/04/2023 8:52 AM SECURITY ARCHITECT [facility] SERVICES [facility] MCV 92.2 82.0 - 99.0 fL 11/04/2023 8:52 AM SECURITY ARCHITECT [facility] MCH 28.5 27.8 - 34.5 pg 11/04/2023 8:52 AM SECURITY ARCHITECT [facility] SERVICES [facility] MCHC 30.9(L) 32.5 - 35.5 g/dL 11/04/2023 8:52 AM SECURITY ARCHITECT [facility] SERVICES [facility] RDW 17.0(H) 11.5 - 14.5 % 11/04/2023 8:52 AM SECURITY ARCHITECT [facility] SERVICES [facility] PLATELETS 272 160 - 420 K/uL 11/04/2023 8:52 AM SECURITY ARCHITECT [facility] SERVICES [facility] MPV 10.0 8.7 - 12.7 fL 11/04/2023 8:52 AM SECURITY ARCHITECT [facility] SERVICES [facility] NEUTROPHILS 45 % 11/04/2023 8:52 AM SECURITY ARCHITECT [facility] LYMPHOCYTES 38 % 11/04/2023 8:52 AM SECURITY ARCHITECT [facility] MONOCYTES 7 % 11/04/2023 8:52 AM SECURITY ARCHITECT [facility] EOSINOPHILS 11 % 11/04/2023 8:52 AM SECURITY ARCHITECT [facility] SERVICES [facility] BASOPHILS 1 % 11/04/2023 8:52 AM SECURITY ARCHITECT [facility] NEUTROPHIL ABSOLUTE 5.50 1.90 - 7.00 K/uL 11/04/2023 8:52 AM SECURITY ARCHITECT [facility] SERVICES [facility] LYMPHOCYTE ABSOLUTE 4.60(H) 0.70 - 4.50 K/uL 11/04/2023 8:52 AM SECURITY ARCHITECT [facility] SERVICES [facility] MONOCYTE ABSOLUTE 0.80 0.10 - 1.30 K/uL 11/04/2023 8:52 AM SECURITY ARCHITECT [facility] SERVICES [facility] EOSINOPHIL ABSOLUTE 1.30(H) 0.00 - 0.70 K/uL 11/04/2023 8:52 AM SECURITY ARCHITECT [facility] SERVICES [facility] BASOPHILS ABSOLUTE 0.10 0.00 - 0.20 K/uL 11/04/2023 8:52 AM [facility] [employer] [facility] Blood 11/04/2023 3:45 AM SECURITY ARCHITECT 11/04/2023 8:24 AM SECURITY ARCHITECT Erik Chairez MD HEMATOLOGY ORDERABLES Final Resu lt [facility] CLIA# [id number] [address] [place] [address] * (ABNORMAL) BASIC METABOLIC PANEL (11/04/2023 3:45 AM SECURITY ARCHITECT) SODIUM 144 136 - 145 mmol/L 11/04/2023 9:49 AM [facility] POTASSIUM 5.3(H) 3.4 - 5.1 mmol/L 11/04/2023 9:49 AM [facility] CHLORIDE 103 98 - 107 mmol/L 11/04/2023 9:49 AM [facility] CO2 26 22 - 29 mmol/L 11/04/2023 9:49 AM [facility] CALCIUM 10.7(H) 8.6 - 10.4 mg/dL 11/04/2023 9:49 AM [facility] BUN 38(H) 6 - 20 mg/dL 11/04/2023 9:49 AM [facility] CREATININE 0.95 0.67 - 1.17 mg/dL 11/04/2023 9:49 AM [facility] Comment:The GFR result is no t clinically significant on patients <18 or >70 years of age. GLUCOSE 114(H) 74 - 99 mg/dL 11/04/2023 9:49 AM [facility] GFR >60 mL/min/1.7 3 sq meter 11/04/2023 9:49 AM [facility] Comment:eGFR calculated with 2020 CKD-EPI equation. Vegetarian diet, extremely high or low muscle mass, and may affect results. Cystatin C with Glomerular Filtration Rate is a suitable alternative for these patients. 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
--- OUTSIDE RECORDS SUMMARY | 2025-04-18 14:36 | XMS_ITS | Encounter Summary ---
Author Organization [facility] Address [address] [place] [address] Care Team Providers Care Blade Aligner Name Role Phone Unavailable Primary Care Provider Unavailabl e Encounter Details Date Type Department Care Team (Late st Contact Info) Description 10/13/2023 Lab Requisition [facility] Laboratory Services [address] [place] [address] [place] [address] [place] [address] Social History Tobacco Use Types Packs/Day Years Used Date Smoking Tobacco: Never Assessed Sex and Gender Information Value Date Recorded Sex Assigned at Not on file Legal Sex Male 9:18 AM STEWARD/STEWARDESS THIRD CLASS Gender Identity Not on file Sexual Orientation Not on file documented as of this encounter Plan of Treatment Not on file documented as of this encounter Procedures Procedure Name Priority Date/Time Associated Diagnosis Comments MAGNESIUM LEVEL Routine 10/13/2023 4:00 AM STEWARD/STEWARDESS THIRD CLASS RENAL FUNCTION PANEL Routine 10/13/2023 4:00 AM STEWARD/STEWARDESS THIRD CLASS documented in this encounter Results * MAGNESIUM LEVEL (10/13/2023 4:00 AM STEWARD/STEWARDESS THIRD CLASS) MAGNESIUM 2.3 1.6 - 2.6 mg/dL 10/13/2023 5:59 AM STEWARD/STEWARDESS THIRD CLASS [facility] [employer] [facility] Blood Collection / Unknown 10/13/2023 4:00 AM STEWARD/STEWARDESS THIRD CLASS 10/13/2023 5:20 AM STEWARD/STEWARDESS THIRD CLASS us Erik Chairez MD CHEMISTRY ORDERABLES Final Resul t [facility] [id number] [address] [place] [address] * (ABNORMAL) RENAL FUNCTION PANEL (10/13/2023 4:00 AM STEWARD/STEWARDESS THIRD CLASS) SODIUM 138 136 - 145 mmol/L 10/13/2023 5:58 AM [facility] POTASSIUM 4.5 3.4 - 5.1 mmol/L 10/13/2023 5:58 AM [facility] CHLORIDE 100 98 - 107 mmol/L 10/13/2023 5:58 AM [facility] CO2 25 22 - 29 mmol/L 10/13/2023 5:58 AM [facility] CALCIUM 9.6 8.6 - 10.4 mg/dL 10/13/2023 5:58 AM [facility] BUN 39(H) 6 - 20 mg/dL 10/13/2023 5:58 AM [facility] CREATININE 1.09 0.67 - 1.17 mg/dL 10/13/2023 5:58 AM [facility] Comment:The GFR result is no t clinically significant on patients <18 or >70 years of age. GLUCOSE 100(H) 74 - 99 mg/dL 10/13/2023 5:58 AM [facility] ALBUMIN 3.5 3.5 - 5.2 g/dL 10/13/2023 5:58 AM [facility] PHOSPHORUS 4.8(H) 2.5 - 4.5 mg/dL 10/13/2023 5:58 AM [facility] GFR >60 mL/min/1.7 3 sq meter 10/13/2023 5:58 AM [facility] Comment:eGFR calculated with 2020 CKD-EPI equation. Vegetarian diet, extremely high or low muscle mass, and may affect results. Cystatin C with Glomerular Filtration Rate is a suitable alternative for these patients. 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
--- OUTSIDE RECORDS SUMMARY | 2025-04-18 14:36 | XMS_ITS | Encounter Summary ---
Author Organization [facility] Address [address] [place] [address] Care Team Providers Care Senior Energy Consultant Name Role Phone Unavailable Primary Care Provider Unavailabl e Encounter Details Date Type Department Care Team (Late st Contact Info) Description 10/20/2023 Lab Requisition [facility] Laboratory Services [address] [place] [address] [place] [id number] [place] [address] Social History Tobacco Use Types Packs/Day Years Used Date Smoking Tobacco: Never Assessed Sex and Gender Information Value Date Recorded Sex Assigned at Not on file Legal Sex Male 9:18 AM INFECTION CONTROL SPECIALIST Gender Identity Not on file Sexual Orientation Not on file documented as of this encounter Plan of Treatment Not on file documented as of this encounter Procedures Procedure Name Priority Date/Time Associated Diagnosis Comments CBC WITH DIFFERENTIAL Routine 10/20/2023 2:20 AM INFECTION CONTROL SPECIALIST BASIC METABOLIC PANEL Routine 10/20/2023 2:20 AM INFECTION CONTROL SPECIALIST documented in this encounter Results * (ABNORMAL) CBC WITH DIFFERENTIAL (10/20/2023 2:20 AM INFECTION CONTROL SPECIALIST) WBC 8.3 4.5 - 10.5 K/uL 10/20/2023 5:25 AM INFECTION CONTROL SPECIALIST [facility] LABORATORY SERVICES - [facility] RBC 3.82(L) 4.50 - 5.40 M/uL 10/20/2023 5:25 AM INFECTION CONTROL SPECIALIST [facility] LABORATORY [facility] - [facility] HEMOGLOBIN 11.2(L) 13.6 - 16.5 g/dL 10/20/2023 5:25 AM INFECTION CONTROL SPECIALIST [facility] LABORATORY SERVICES - [facility] HEMATOCRIT 35.0(L) 40.0 - 48.0 % 10/20/2023 5:25 AM INFECTION CONTROL SPECIALIST [facility] LABORATORY SERVICES [facility] MCV 91.6 82.0 - 99.0 fL 10/20/2023 5:25 AM INFECTION CONTROL SPECIALIST [facility] LABORATORY SERVICES - [facility] MCH 29.4 27.8 - 34.5 pg 10/20/2023 5:25 AM INFECTION CONTROL SPECIALIST [facility] LABORATORY SERVICES [facility] MCHC 32.1(L) 32.5 - 35.5 g/dL 10/20/2023 5:25 AM INFECTION CONTROL SPECIALIST [facility] LABORATORY SERVICES - [facility] RDW 17.4(H) 11.5 - 14.5 % 10/20/2023 5:25 AM INFECTION CONTROL SPECIALIST [facility] - [facility] PLATELETS 255 160 - 420 K/uL 10/20/2023 5:25 AM INFECTION CONTROL SPECIALIST [facility] MPV 9.4 8.7 - 12.7 fL 10/20/2023 5:25 AM INFECTION CONTROL SPECIALIST [facility] - [facility] NEUTROPHILS 60 % 10/20/2023 5:25 AM INFECTION CONTROL SPECIALIST [facility] - [facility] LYMPHOCYTES 23 % 10/20/2023 5:25 AM INFECTION CONTROL SPECIALIST [employer] LABORATORY SERVICES [facility] MONOCYTES 6 % 10/20/2023 5:25 AM INFECTION CONTROL SPECIALIST [facility] EOSINOPHILS 11 % 10/20/2023 5:25 AM INFECTION CONTROL SPECIALIST [facility] BASOPHILS 1 % 10/20/2023 5:25 AM INFECTION CONTROL SPECIALIST [facility] NEUTROPHIL ABSOLUTE 4.90 1.90 - 7.00 K/uL 10/20/2023 5:25 AM INFECTION CONTROL SPECIALIST [facility] LYMPHOCYTE ABSOLUTE 1.90 0.70 - 4.50 K/uL 10/20/2023 5:25 AM INFECTION CONTROL SPECIALIST [employer] LABORATORY SERVICES [facility] MONOCYTE ABSOLUTE 0.50 0.10 - 1.30 K/uL 10/20/2023 5:25 AM INFECTION CONTROL SPECIALIST [facility] EOSINOPHIL ABSOLUTE 0.90(H) 0.00 - 0.70 K/uL 10/20/2023 5:25 AM INFECTION CONTROL SPECIALIST [facility] BASOPHILS ABSOLUTE 0.00 0.00 - 0.20 K/uL 10/20/2023 5:25 AM [facility] Blood 10/20/2023 2:20 AM INFECTION CONTROL SPECIALIST 10/20/2023 5:15 AM INFECTION CONTROL SPECIALIST Erik Chairez MD HEMATOLOGY ORDERABLES Final Resu lt [facility] CLIA# [id number] [place] [address] * (ABNORMAL) BASIC METABOLIC PANEL (10/20/2023 2:20 AM INFECTION CONTROL SPECIALIST) SODIUM 140 136 - 145 mmol/L [...] 8 - 16 mmol/L 10/20/2023 5:53 AM INFECTION CONTROL SPECIALIST [facility] LABORATORY SERVICES [facility] Blood 10/20/2023 2:20 AM INFECTION CONTROL SPECIALIST 10/20/2023 5:15 AM INFECTION CONTROL SPECIALIST Erik Chairez MD CHEMISTRY ORDERABLES Final Resul t [facility] LABORATORY [facility] CLIA# [id number] [place] [address] documented in this encounter Visit Diagnoses Not on filedocumented in this encounter Additional Health Concerns Infection Onset Date Last Indicated Resolved Time 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
--- OUTSIDE RECORDS SUMMARY | 2025-04-18 14:36 | XMS_ITS | Encounter Summary ---
Author Organization [facility] Address [address] [place] [address] Care Team Providers Care Environmental Field Technician Name Role Phone Unavailable Primary Care Provider Unavailabl e Encounter Details Date Type Department Care Team (Late st Contact Info) Description 11/01/2023 Lab Requisition [facility] Laboratory Services [address] [place] [address] [place] [id number] [place] [address] Social History Tobacco Use Types Packs/Day Years Used Date Smoking Tobacco: Never Assessed Sex and Gender Information Value Date Recorded Sex Assigned at Not on file Legal Sex Male 9:18 AM PURCHASING/RECEIVING Gender Identity Not on file Sexual Orientation Not on file documented as of this encounter Plan of Treatment Not on file documented as of this encounter Procedures Procedure Name Priority Date/Time Associated Diagnosis Comments CBC WITH DIFFERENTIAL Routine 11/01/2023 4:20 AM PURCHASING/RECEIVING BASIC METABOLIC PANEL Routine 11/01/2023 4:20 AM PURCHASING/RECEIVING documented in this encounter Results * (ABNORMAL) CBC WITH DIFFERENTIAL (11/01/2023 4:20 AM PURCHASING/RECEIVING) WBC 8.5 4.5 - 10.5 K/uL 11/01/2023 8:48 AM PURCHASING/RECEIVING [facility] LABORATORY SERVICES - [facility] RBC 3.87(L) 4.50 - 5.40 M/uL 11/01/2023 8:48 AM PURCHASING/RECEIVING [facility] LABORATORY [facility] - [facility] HEMOGLOBIN 11.2(L) 13.6 - 16.5 g/dL 11/01/2023 8:48 AM PURCHASING/RECEIVING [facility] LABORATORY [facility] - [facility] HEMATOCRIT 34.9(L) 40.0 - 48.0 % 11/01/2023 8:48 AM PURCHASING/RECEIVING [facility] LABORATORY SERVICES [facility] MCV 90.3 82.0 - 99.0 fL 11/01/2023 8:48 AM PURCHASING/RECEIVING [facility] LABORATORY SERVICES - [facility] MCH 29.0 27.8 - 34.5 pg 11/01/2023 8:48 AM PURCHASING/RECEIVING [facility] LABORATORY SERVICES [facility] MCHC 32.1(L) 32.5 - 35.5 g/dL 11/01/2023 8:48 AM PURCHASING/RECEIVING [facility] LABORATORY SERVICES [facility] RDW 17.0(H) 11.5 - 14.5 % 11/01/2023 8:48 AM PURCHASING/RECEIVING [facility] LABORATORY SERVICES [facility] PLATELETS 246 160 - 420 K/uL 11/01/2023 8:48 AM PURCHASING/RECEIVING [facility] SERVICES [facility] MPV 9.7 8.7 - 12.7 fL 11/01/2023 8:48 AM PURCHASING/RECEIVING [facility] NEUTROPHILS 53 % 11/01/2023 8:48 AM PURCHASING/RECEIVING [facility] LYMPHOCYTES 29 % 11/01/2023 8:48 AM PURCHASING/RECEIVING [facility] MONOCYTES 7 % 11/01/2023 8:48 AM PURCHASING/RECEIVING [facility] EOSINOPHILS 12 % 11/01/2023 8:48 AM PURCHASING/RECEIVING [facility] BASOPHILS 1 % 11/01/2023 8:48 AM PURCHASING/RECEIVING [facility] LABORATORY SERVICES [facility] NEUTROPHIL ABSOLUTE 4.50 1.90 - 7.00 K/uL 11/01/2023 8:48 AM PURCHASING/RECEIVING [facility] LABORATORY SERVICES [facility] LYMPHOCYTE ABSOLUTE 2.40 0.70 - 4.50 K/uL 11/01/2023 8:48 AM PURCHASING/RECEIVING [facility] MONOCYTE ABSOLUTE 0.60 0.10 - 1.30 K/uL 11/01/2023 8:48 AM PURCHASING/RECEIVING [facility] LABORATORY SERVICES [facility] EOSINOPHIL ABSOLUTE 1.00(H) 0.00 - 0.70 K/uL 11/01/2023 8:48 AM PURCHASING/RECEIVING [facility] LABORATORY SERVICES [facility] BASOPHILS ABSOLUTE 0.00 0.00 - 0.20 K/uL 11/01/2023 8:48 AM [facility] Blood Collection / Unknown 11/01/2023 4:20 AM PURCHASING/RECEIVING 11/01/2023 7:57 AM PURCHASING/RECEIVING Erik Chairez MD HEMATOLOGY ORDERABLES Final Resu lt [facility] CLIA# [id number] [place] [address] * (ABNORMAL) BASIC METABOLIC PANEL (11/01/2023 4:20 AM PURCHASING/RECEIVING) SODIUM 139 136 - 145 mmol/L 11/01/2023 9:12 AM [facility] POTASSIUM 3.7 3.4 - 5.1 mmol/L 11/01/2023 9:12 AM [facility] CHLORIDE 100 98 - 107 mmol/L 11/01/2023 9:12 AM [facility] CO2 27 22 - 29 mmol/L 11/01/2023 9:12 AM [facility] CALCIUM 9.8 8.6 - 10.4 mg/dL 11/01/2023 9:12 AM [facility] BUN 41(H) 6 - 20 mg/dL 11/01/2023 9:12 AM [facility] CREATININE 0.93 0.67 - 1.17 mg/dL 11/01/2023 9:12 AM [facility] Comment:The GFR result is no t clinically significant on patients <18 or >70 years of age. GLUCOSE 109(H) 74 - 99 mg/dL 11/01/2023 9:12 AM [facility] GFR >60 mL/min/1.7 3 sq meter 11/01/2023 9:12 AM [facility] Comment:eGFR calculated with 2020 CKD-EPI equation. Vegetarian diet, extremely high or low muscle mass, and may affect results. Cystatin C with Glomerular Filtration Rate is a suitable alternative for these patients. ANION GAP 12 8 - 16 mmol/L 11/01/2023 9:12 AM PURCHASING/RECEIVING [facility] LABORATORY SERVICES [facility] Blood Collection / Unknown 11/01/2023 4:20 AM PURCHASING/RECEIVING 11/01/2023 7:57 AM PURCHASING/RECEIVING Erik Chairez MD CHEMISTRY ORDERABLES Final Resul t [facility] LABORATORY SERVICES [facility] CLIA# [id number] [place] [address] documented in this encounter Visit Diagnoses Not on filedocumented in this encounter Additional Health Concerns Infection Onset Date Last Indicated Resolved Time CRE-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
--- OUTSIDE RECORDS SUMMARY | 2025-04-18 14:36 | XMS_ITS | Encounter Summary ---
Author Organization [facility] Address [address] [place] [address] Care Team Providers Care Stenocaptioner Name Role Phone Unavailable Primary Care Provider Unavailabl e Encounter Details Date Type Department Care Team (Late st Contact Info) Description 10/29/2023 Lab Requisition [facility] Laboratory Services [address] [place] [address] [place] [id number] [place] [address] Social History Tobacco Use Types Packs/Day Years Used Date Smoking Tobacco: Never Assessed Sex and Gender Information Value Date Recorded Sex Assigned at Not on file Legal Sex Male 9:18 AM BACK MAKER Gender Identity Not on file Sexual Orientation Not on file documented as of this encounter Plan of Treatment Not on file documented as of this encounter Procedures Procedure Name Priority Date/Time Associated Diagnosis Comments CBC WITH DIFFERENTIAL Routine 10/29/2023 3:20 AM BACK MAKER BASIC METABOLIC PANEL Routine 10/29/2023 3:20 AM BACK MAKER documented in this encounter Results * (ABNORMAL) CBC WITH DIFFERENTIAL (10/29/2023 3:20 AM BACK MAKER) WBC 8.0 4.5 - 10.5 K/uL 10/29/2023 8:18 AM BACK MAKER [facility] LABORATORY SERVICES - [facility] RBC 3.85(L) 4.50 - 5.40 M/uL 10/29/2023 8:18 AM BACK MAKER [facility] LABORATORY [facility] - [facility] HEMOGLOBIN 11.6(L) 13.6 - 16.5 g/dL 10/29/2023 8:18 AM BACK MAKER [facility] LABORATORY [facility] - [facility] HEMATOCRIT 35.7(L) 40.0 - 48.0 % 10/29/2023 8:18 AM BACK MAKER [facility] LABORATORY SERVICES [facility] MCV 92.6 82.0 - 99.0 fL 10/29/2023 8:18 AM BACK MAKER [facility] LABORATORY SERVICES - [facility] MCH 30.0 27.8 - 34.5 pg 10/29/2023 8:18 AM BACK MAKER [facility] LABORATORY SERVICES [facility] MCHC 32.4(L) 32.5 - 35.5 g/dL 10/29/2023 8:18 AM BACK MAKER [facility] LABORATORY SERVICES [facility] RDW 17.3(H) 11.5 - 14.5 % 10/29/2023 8:18 AM BACK MAKER [facility] LABORATORY SERVICES [facility] PLATELETS 255 160 - 420 K/uL 10/29/2023 8:18 AM BACK MAKER [facility] LABORATORY SERVICES [facility] MPV 9.9 8.7 - 12.7 fL 10/29/2023 8:18 AM BACK MAKER [facility] LABORATORY SERVICES [facility] NEUTROPHILS 61 % 10/29/2023 8:18 AM BACK MAKER [facility] LABORATORY SERVICES [facility] LYMPHOCYTES 22 % 10/29/2023 8:18 AM BACK MAKER [facility] MONOCYTES 6 % 10/29/2023 8:18 AM BACK MAKER [facility] EOSINOPHILS 11 % 10/29/2023 8:18 AM BACK MAKER [facility] LABORATORY SERVICES [facility] BASOPHILS 1 % 10/29/2023 8:18 AM BACK MAKER [facility] LABORATORY SERVICES [facility] NEUTROPHIL ABSOLUTE 4.90 1.90 - 7.00 K/uL 10/29/2023 8:18 AM BACK MAKER [facility] LABORATORY SERVICES [facility] LYMPHOCYTE ABSOLUTE 1.70 0.70 - 4.50 K/uL 10/29/2023 8:18 AM BACK MAKER [facility] MONOCYTE ABSOLUTE 0.50 0.10 - 1.30 K/uL 10/29/2023 8:18 AM BACK MAKER [facility] LABORATORY SERVICES [facility] EOSINOPHIL ABSOLUTE 0.80(H) 0.00 - 0.70 K/uL 10/29/2023 8:18 AM BACK MAKER [facility] LABORATORY SERVICES [facility] BASOPHILS ABSOLUTE 0.00 0.00 - 0.20 K/uL 10/29/2023 8:18 AM [facility] Blood Collection / Unknown 10/29/2023 3:20 AM BACK MAKER 10/29/2023 7:59 AM BACK MAKER Erik Chairez MD HEMATOLOGY ORDERABLES Final Resu lt [facility] CLIA# [id number] [place] [address] * (ABNORMAL) BASIC METABOLIC PANEL (10/29/2023 3:20 AM BACK MAKER) SODIUM 141 136 - 145 mmol/L 10/29/2023 8:38 AM [facility] POTASSIUM 4.5 3.4 - 5.1 mmol/L 10/29/2023 8:38 AM [facility] CHLORIDE 101 98 - 107 mmol/L 10/29/2023 8:38 AM [facility] CO2 28 22 - 29 mmol/L 10/29/2023 8:38 AM [facility] CALCIUM 10.2 8.6 - 10.4 mg/dL 10/29/2023 8:38 AM [facility] BUN 42(H) 6 - 20 mg/dL 10/29/2023 8:38 AM [facility] CREATININE 1.05 0.67 - 1.17 mg/dL 10/29/2023 8:38 AM [facility] Comment:The GFR result is no t clinically significant on patients <18 or >70 years of age. GLUCOSE 112(H) 74 - 99 mg/dL 10/29/2023 8:38 AM [facility] GFR >60 mL/min/1.7 3 sq meter 10/29/2023 8:38 AM [facility] Comment:eGFR calculated with 2020 CKD-EPI equation. Vegetarian diet, extremely high or low muscle mass, and may affect results. Cystatin C with Glomerular Filtration Rate is a suitable alternative for these patients. ANION GAP 12 8 - 16 mmol/L 10/29/2023 8:38 AM BACK MAKER [facility] LABORATORY SERVICES [facility] Blood Collection / Unknown 10/29/2023 3:20 AM BACK MAKER 10/29/2023 7:59 AM BACK MAKER Erik Chairez MD CHEMISTRY ORDERABLES Final Resul t [facility] LABORATORY SERVICES 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
--- OUTSIDE RECORDS SUMMARY | 2025-04-18 14:36 | XMS_ITS | Encounter Summary ---
Author Organization [facility] Address [address] [place] [address] Care Team Providers Care Shorthand Teacher Name Role Phone Unavailable Primary Care Provider Unavailabl e Encounter Details Date Type Department Care Team (Late st Contact Info) Description 10/17/2023 Lab Requisition [facility] Laboratory Services [address] [place] [address] [place] [address] [place] [address] Social History Tobacco Use Types Packs/Day Years Used Date Smoking Tobacco: Never Assessed Sex and Gender Information Value Date Recorded Sex Assigned at Not on file Legal Sex Male 9:18 AM CRIPPLE CUTTER Gender Identity Not on file Sexual Orientation Not on file documented as of this encounter Plan of Treatment Not on file documented as of this encounter Procedures Procedure Name Priority Date/Time Associated Diagnosis Comments CBC WITH DIFFERENTIAL Routine 10/17/2023 2:15 AM CRIPPLE CUTTER MAGNESIUM LEVEL Routine 10/17/2023 2:15 AM CRIPPLE CUTTER RENAL FUNCTION PANEL Routine 10/17/2023 2:15 AM CRIPPLE CUTTER documented in this encounter Results * MAGNESIUM LEVEL (10/17/2023 2:15 AM CRIPPLE CUTTER) MAGNESIUM 2.3 1.6 - 2.6 mg/dL 10/17/2023 9:56 AM CRIPPLE CUTTER [facility] Blood Collection / Unknown 10/17/2023 2:15 AM CRIPPLE CUTTER 10/17/2023 9:00 AM CRIPPLE CUTTER Erik Chairez MD CHEMISTRY ORDERABLES Final Resul t [facility] CLIA# [id number] [address] [place] [address] * (ABNORMAL) CBC WITH DIFFERENTIAL (10/17/2023 2:15 AM CRIPPLE CUTTER) WBC 6.7 4.5 - 10.5 K/uL 10/17/2023 9:34 AM CRIPPLE CUTTER [facility] RBC 3.73(L) 4.50 - 5.40 M/uL 10/17/2023 9:34 AM CRIPPLE CUTTER [facility] HEMOGLOBIN 11.1(L) 13.6 - 16.5 g/dL 10/17/2023 9:34 AM CRIPPLE CUTTER [facility] HEMATOCRIT 35.0(L) 40.0 - 48.0 % 10/17/2023 9:34 AM CRIPPLE CUTTER [facility] MCV 93.8 82.0 - 99.0 fL 10/17/2023 9:34 AM CRIPPLE CUTTER [facility] MCH 29.8 27.8 - 34.5 pg 10/17/2023 9:34 AM CRIPPLE CUTTER [facility] MCHC 31.8(L) 32.5 - 35.5 g/dL 10/17/2023 9:34 AM CRIPPLE CUTTER [facility] RDW 17.4(H) 11.5 - 14.5 % 10/17/2023 9:34 AM CRIPPLE CUTTER [facility] PLATELETS 214 160 - 420 K/uL 10/17/2023 9:34 AM CRIPPLE CUTTER [facility] MPV 9.5 8.7 - 12.7 fL 10/17/2023 9:34 AM CRIPPLE CUTTER [facility] NEUTROPHILS 50 % 10/17/2023 9:34 AM CRIPPLE CUTTER [facility] LYMPHOCYTES 28 % 10/17/2023 9:34 AM CRIPPLE CUTTER [facility] MONOCYTES 8 % 10/17/2023 9:34 AM CRIPPLE CUTTER [facility] EOSINOPHILS 13 % 10/17/2023 9:34 AM CRIPPLE CUTTER [facility] BASOPHILS 0 % 10/17/2023 9:34 AM CRIPPLE CUTTER [facility] NEUTROPHIL ABSOLUTE 3.40 1.90 - 7.00 K/uL 10/17/2023 9:34 AM CRIPPLE CUTTER [facility] LYMPHOCYTE ABSOLUTE 1.90 0.70 - 4.50 K/uL 10/17/2023 9:34 AM CRIPPLE CUTTER [facility] MONOCYTE ABSOLUTE 0.50 0.10 - 1.30 K/uL 10/17/2023 9:34 AM CRIPPLE CUTTER [facility] EOSINOPHIL ABSOLUTE 0.90(H) 0.00 - 0.70 K/uL 10/17/2023 9:34 AM CRIPPLE CUTTER [facility] BASOPHILS ABSOLUTE 0.00 0.00 - 0.20 K/uL 10/17/2023 9:34 AM CRIPPLE CUTTER [facility] Blood Collection / Unknown 10/17/2023 2:15 AM CRIPPLE CUTTER 10/17/2023 9:00 AM CRIPPLE CUTTER us Erik Chairez MD HEMATOLOGY ORDERABLES Final Resu lt [facility] CLIA# [id number] [address] [place] [address] * (ABNORMAL) RENAL FUNCTION PANEL (10/17/2023 2:15 AM CRIPPLE CUTTER) SODIUM 137 136 - 145 mmol/L 10/17/2023 9:56 AM [facility] [employer] [facility] POTASSIUM 4.0 3.4 - 5.1 mmol/L 10/17/2023 9:56 AM [facility] CHLORIDE 99 98 - 107 mmol/L 10/17/2023 9:56 AM [facility] [employer] [facility] CO2 23 22 - 29 mmol/L 10/17/2023 9:56 AM [facility] [employer] [facility] CALCIUM 9.2 8.6 - 10.4 mg/dL 10/17/2023 9:56 AM [facility] [employer] [facility] BUN 42(H) 6 - 20 mg/dL 10/17/2023 9:56 AM [facility] [place] [place] CREATININE 1.00 0.67 - 1.17 mg/dL 10/17/2023 9:56 AM [facility] [place] [place] Comment:The GFR result is no t clinically significant on patients <18 or >70 years of age. GLUCOSE 72(L) 74 - 99 mg/dL 10/17/2023 9:56 AM [facility] [place] [place] ALBUMIN 3.2(L) 3.5 - 5.2 g/dL 10/17/2023 9:56 AM [facility] [place] [place] PHOSPHORUS 2.9 2.5 - 4.5 mg/dL 10/17/2023 9:56 AM [facility] [place] [place] GFR >60 mL/min/1.7 3 sq meter 10/17/2023 9:56 AM [facility] [place] [place] Comment:eGFR calculated with 2020 CKD-EPI equation. Vegetarian diet, extremely high or low muscle mass, and may affect results. Cystatin C with Glomerular Filtration Rate is a suitable alternative for these patients. 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
--- OUTSIDE RECORDS SUMMARY | 2025-04-18 14:36 | XMS_ITS | Encounter Summary ---
Author Organization [facility] Address [address] [place] [address] Care Team Providers Care Shaker Screen Operator Name Role Phone Unavailable Primary Care Provider Unavailabl e Encounter Details Date Type Department Care Team (Late st Contact Info) Description 10/23/2023 Lab Requisition [facility] Laboratory Services [address] [place] [address] [place] [address] [place] [address] Social History Tobacco Use Types Packs/Day Years Used Date Smoking Tobacco: Never Assessed Sex and Gender Information Value Date Recorded Sex Assigned at Not on file Legal Sex Male 9:18 AM FARMWORKER [employer] Gender Identity Not on file Sexual Orientation Not on file documented as of this encounter Plan of Treatment Not on file documented as of this encounter Procedures Procedure Name Priority Date/Time Associated Diagnosis Comments CBC WITH DIFFERENTIAL Routine 10/23/2023 2:45 AM FARMWORKER [employer]ARM BASIC METABOLIC PANEL Routine 10/23/2023 2:45 AM FARMWORKER [employer] documented in this encounter Results * (ABNORMAL) CBC WITH DIFFERENTIAL (10/23/2023 2:45 AM FARMWORK[employer]) WBC 12.7(H) 4.5 - 10.5 K/uL 10/23/2023 11:15 AM [employer]ARM[employer] [facility] - [facility] RBC 4.12(L) 4.50 - 5.40 M/uL 10/23/2023 11:15 AM FARMWORKER [employer] [facility] HEMOGLOBIN 12.2(L) 13.6 - 16.5 g/dL 10/23/2023 11:15 AM FARMWORK[employer] [facility] HEMATOCRIT 38.7(L) 40.0 - 48.0 % 10/23/2023 11:15 AM [employer] [facility] - [facility] MCV 94.0 82.0 - 99.0 fL 10/23/2023 11:15 AM [employer] [facility] MCH 29.7 27.8 - 34.5 pg 10/23/2023 11:15 AM [employer] [facility] MCHC 31.6(L) 32.5 - 35.5 g/dL 10/23/2023 11:15 AM [employer] [facility] RDW 17.3(H) 11.5 - 14.5 % 10/23/2023 11:15 AM [employer] [facility] PLATELETS 264 160 - 420 K/uL 10/23/2023 11:15 AM FARM[employer] [facility] MPV 9.6 8.7 - 12.7 fL 10/23/2023 11:15 AM [employer] [facility] NEUTROPHILS 67 % 10/23/2023 11:15 AM FARMWORK[employer] [facility] LYMPHOCYTES 20 % 10/23/2023 11:15 AM FARMWORK[employer] [facility] MONOCYTES 5 % 10/23/2023 11:15 AM [employer]ARM[employer] [facility] EOSINOPHILS 8 % 10/23/2023 11:15 AM [employer]ARM[employer] [facility] BASOPHILS 1 % 10/23/2023 11:15 AM [employer] [facility] NEUTROPHIL ABSOLUTE 8.50(H) 1.90 - 7.00 K/uL 10/23/2023 11:15 AM [employer] [facility] LYMPHOCYTE ABSOLUTE 2.50 0.70 - 4.50 K/uL 10/23/2023 11:15 AM [employer] [facility] MONOCYTE ABSOLUTE 0.60 0.10 - 1.30 K/uL 10/23/2023 11:15 AM [employer] [facility] EOSINOPHIL ABSOLUTE 1.00(H) 0.00 - 0.70 K/uL 10/23/2023 11:15 AM [employer] [facility] BASOPHILS ABSOLUTE 0.10 0.00 - 0.20 K/uL 10/23/2023 11:15 AM [facility] Blood Collection / Unknown 10/23/2023 2:45 AM [employer]ARMWORK[employer] 10/23/2023 10:44 AM [employer] Erik Chairez MD HEMATOLOGY ORDERABLES Final Resu lt [facility] CLIA# [id number] [address] [place] [address] * (ABNORMAL) BASIC METABOLIC PANEL (10/23/2023 2:45 AM FARMWORK[employer]) SODIUM 139 136 - 145 mmol/L 10/23/2023 11:42 AM [facility] POTASSIUM 4.5 3.4 - 5.1 mmol/L 10/23/2023 11:42 AM [facility] CHLORIDE 100 98 - 107 mmol/L 10/23/2023 11:42 AM [facility] CO2 24 22 - 29 mmol/L 10/23/2023 11:42 AM [facility] CALCIUM 9.6 8.6 - 10.4 mg/dL 10/23/2023 11:42 AM [facility] BUN 36(H) 6 - 20 mg/dL 10/23/2023 11:42 AM [facility] CREATININE 0.95 0.67 - 1.17 mg/dL 10/23/2023 11:42 AM [facility] Comment:The GFR result is no t clinically significant on patients <18 or >70 years of age. GLUCOSE 86 74 - 99 mg/dL 10/23/2023 11:42 AM [facility] GFR >60 mL/min/1.7 3 sq meter 10/23/2023 11:42 AM [facility] Comment:eGFR calculated with 2020 CKD-EPI equation. Vegetarian diet, extremely high or low muscle mass, and may affect results. Cystatin C with Glomerular Filtration Rate is a suitable alternative for these patients. ANION GAP 15 8 - 16 mmol/L 10/23/2023 11:42 AM [employer] [facility] Blood Collection / Unknown 10/23/2023 2:45 AM [employer] 10/23/2023 10:44 AM [employer] Erik Chairez MD CHEMISTRY ORDERABLES Final Resul t [facility] CLIA# [id number] [address] [place] [address] documented in this encounter Visit Diagnoses Not on filedocumented in this encounter Additional Health Concerns Infection Onset Date Last Indicated Resolved Time 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
--- OUTSIDE RECORDS SUMMARY | 2025-04-18 14:36 | XMS_ITS | Encounter Summary ---
Author Organization [facility] Address [address] [place] [address] Care Team Providers Care Final Finisher Forging Dies Name Role Phone Unavailable Primary Care Provider Unavailabl e Encounter Details Date Type Department Care Team (Late st Contact Info) Description 11/07/2023 Lab Requisition [facility] Laboratory Services [address] [place] [address] [place] [address] [place] [address] Social History Tobacco Use Types Packs/Day Years Used Date Smoking Tobacco: Never Assessed Sex and Gender Information Value Date Recorded Sex Assigned at Not on file Legal Sex Male 9:18 AM ASSEMBLER [employer]UM[employer] Gender Identity Not on file Sexual Orientation Not on file documented as of this encounter Plan of Treatment Not on file documented as of this encounter Procedures Procedure Name Priority Date/Time Associated Diagnosis Comments THEOPHYLLINE LEVEL Routine 11/07/2023 8: 40 AM ASSEMBLER [employer]UM[employer] documented in this encounter Results * (ABNORMAL) THEOPHYLLINE LEVEL (11/07/2023 8:40 AM ASSEMBLER [employer]UM[employer]) THEOPHYLLINE LEVEL <0.8(L) 10.0 - 20.0 ug/mL 11/07/2023 3:56 PM ASSEMBLER [employer] INSTRUMENTS [facility] Comment:Verified by repeat a nalysis. TDM LAST DATE, TIME, AMT (TIFFANIE) Patient unable to state date. time or dose. 11/07/2023 3:56 PM ASSEMBLER [employer] INSTRUMENTS [facility] LAST DOSE AMT, THEOPHYLLINE Other 11/07/2023 3:56 PM ASSEMBLER [employer] INSTRUMENTS [facility] Comment:80 mg Blood 11/07/2023 8:40 AM ASSEM[employer]ER [employer]UM[employer] 11/07/2023 10:34 AM [employer] Narrative [facility] - 11/07/2023 3:56 PM [employer]SEM[employer]ER [employer] Theophylline Toxic Levels: 6 months - Adult = >20.0 ug/mL 0 - 6 months = >15.0 ug/mL Erik Chairez MD CHEMISTRY ORDERABLES Final Resul t [facility] CLIA# [id number] [address] [place] [address] [facility] CLIA# [id number] [address] [place] [address] documented in this encounter Visit Diagnoses Not on filedocumented in this encounter Additional Health Concerns Infection Onset Date Last Indicated Resolved Time 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
--- OUTSIDE RECORDS SUMMARY | 2025-04-18 14:36 | XMS_ITS | Continuity of Care Document ---
Author Organization [facility] Address [address] [place] [address] [place] [address] Phone Care Team Providers Care Sustainability Project Coordinator Name Role Phone Karsten Mason MD Unavailable Unavailable Procedures Procedure Date Office/outpatient Visit, [facility] Advance Directives Directive Yes / No Effective Date File Name No Information Encounters Encounter Description Practice Location Reason(s) For Visit Diagnoses Date Provider Providers Copied on Encounter Office/outpat ient Visit, [facility], [address] [place] [address] [address], [place], [place], [id number], [place] tel:[phone] [address] [facility] No Information [phone] [facility] [place] [facility], [place], [place], [id number], [place]. tel:[phone] Family History Family Member Type Diagnosis Age At Onset No Information Payers Payer name Insurance type Covered democrat ID Authoriza tion(s) Medicare [facility] [id number] Social History Type Description Quantity Date Captured [...]
--- OUTSIDE RECORDS SUMMARY | 2025-04-18 14:36 | XMS_ITS | Encounter Summary ---
Author Organization [facility] Address [address] [place] [address] Care Team Providers Care Accounting Supervisor Name Role Phone Unavailable Primary Care Provider Unavailabl e Encounter Details Date Type Department Care Team (Late st Contact Info) Description 10/12/2023 Lab Requisition [facility] Laboratory Services [address] [place] [address] [place] [address] [place] [address] Social History Tobacco Use Types Packs/Day Years Used Date Smoking Tobacco: Never Assessed Sex and Gender Information Value Date Recorded Sex Assigned at Not on file Legal Sex Male 9:18 AM APPLIANCE SERVICE REPRESENTATIVE Gender Identity Not on file Sexual Orientation Not on file documented as of this encounter Plan of Treatment Not on file documented as of this encounter Procedures Procedure Name Priority Date/Time Associated Diagnosis Comments MAGNESIUM LEVEL Routine 10/12/2023 4:00 AM APPLIANCE SERVICE REPRESENTATIVE RENAL FUNCTION PANEL Routine 10/12/2023 4:00 AM APPLIANCE SERVICE REPRESENTATIVE documented in this encounter Results * MAGNESIUM LEVEL (10/12/2023 4:00 AM APPLIANCE SERVICE REPRESENTATIVE) MAGNESIUM 2.3 1.6 - 2.6 mg/dL 10/12/2023 6:02 AM APPLIANCE SERVICE REPRESENTATIVE [facility] [employer] [facility] Blood Collection / Unknown 10/12/2023 4:00 AM APPLIANCE SERVICE REPRESENTATIVE 10/12/2023 5:07 AM APPLIANCE SERVICE REPRESENTATIVE us Erik Chairez MD CHEMISTRY ORDERABLES Final Resul t [facility] [id number] [address] [place] [address] * (ABNORMAL) RENAL FUNCTION PANEL (10/12/2023 4:00 AM APPLIANCE SERVICE REPRESENTATIVE) SODIUM 139 136 - 145 mmol/L 10/12/2023 6:02 AM [facility] POTASSIUM 4.2 3.4 - 5.1 mmol/L 10/12/2023 6:02 AM [facility] CHLORIDE 102 98 - 107 mmol/L 10/12/2023 6:02 AM [facility] CO2 24 22 - 29 mmol/L 10/12/2023 6:02 AM [facility] CALCIUM 9.5 8.6 - 10.4 mg/dL 10/12/2023 6:02 AM [facility] BUN 43(H) 6 - 20 mg/dL 10/12/2023 6:02 AM [facility] CREATININE 1.20(H) 0.67 - 1.17 mg/dL 10/12/2023 6:02 AM [facility] Comment:The GFR result is no t clinically significant on patients <18 or >70 years of age. GLUCOSE 94 74 - 99 mg/dL 10/12/2023 6:02 AM [facility] ALBUMIN 3.4(L) 3.5 - 5.2 g/dL 10/12/2023 6:02 AM [facility] PHOSPHORUS 4.2 2.5 - 4.5 mg/dL 10/12/2023 6:02 AM [facility] GFR 60 mL/min/1.7 3 sq meter 10/12/2023 6:02 AM [facility] Comment:eGFR calculated with 2020 CKD-EPI equation. Vegetarian diet, extremely high or low muscle mass, and may affect results. Cystatin C with Glomerular Filtration Rate is a suitable alternative for these patients. ANION GAP 13 8 - 16 mmol/L 10/12/2023 6:02 AM [facility] Blood Collection / Unknown 10/12/2023 4:00 AM APPLIANCE SERVICE REPRESENTATIVE 10/12/2023 5:07 AM APPLIANCE SERVICE REPRESENTATIVE Erik Chairez MD CHEMISTRY ORDERABLES Final Resul t 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
--- OUTSIDE RECORDS SUMMARY | 2025-04-18 14:36 | XMS_ITS | Encounter Summary ---
Author Organization [facility] Address [address] [place] [address] Care Team Providers Care Embossing Machine Operator Helper Name Role Phone Unavailable Primary Care Provider Unavailabl e Encounter Details Date Type Department Care Team (Late st Contact Info) Description 10/14/2023 Lab Requisition [facility] Laboratory Services [address] [place] [address] [place] [id number] [place] [address] Social History Tobacco Use Types Packs/Day Years Used Date Smoking Tobacco: Never Assessed Sex and Gender Information Value Date Recorded Sex Assigned at Not on file Legal Sex Male 9:18 AM CUSTOMER CARE REPRESENTATIVE Gender Identity Not on file Sexual Orientation Not on file documented as of this encounter Plan of Treatment Not on file documented as of this encounter Procedures Procedure Name Priority Date/Time Associated Diagnosis Comments CBC WITH DIFFERENTIAL Routine 10/14/2023 2:35 AM CUSTOMER CARE REPRESENTATIVE TRIGLYCERIDE Routine 10/14/2023 2:35 AM CUSTOMER CARE REPRESENTATIVE PHOSPHORUS Routine 10/14/2023 2:35 AM CUSTOMER CARE REPRESENTATIVE MAGNESIUM LEVEL Routine 10/14/2023 2:35 AM CUSTOMER CARE REPRESENTATIVE COMPREHENSIVE METABOLIC PANEL Routine 10/14/2023 2:35 AM CUSTOMER CARE REPRESENTATIVE documented in this encounter Results * (ABNORMAL) TRIGLYCERIDE (10/14/2023 2:35 AM CUSTOMER CARE REPRESENTATIVE) TRIGLYCERIDE 161(H) <150 mg/dL 10/14/2023 8:26 AM CUSTOMER CARE REPRESENTATIVE [facility] Blood Collection / Unknown 10/14/2023 2:35 AM CUSTOMER CARE REPRESENTATIVE 10/14/2023 7:22 AM CUSTOMER CARE REPRESENTATIVE Narrative [facility] - 10/14/2023 8:26 AM CUSTOMER CARE REPRESENTATIVE TRIGLYCERIDES mg/dL Normal < 150 Borderline High 150 - 199 High 200 - 499 Very High >= 500 Based on AHA/NCEP Guidelines. us Erik Chairez MD CHEMISTRY ORDERABLES Final Resul t Performing Organization Address City/[facility]/ZIP Co de Phone Number [facility] CLIA# [id number] [place] [address] * PHOSPHORUS (10/14/2023 2:35 AM CUSTOMER CARE REPRESENTATIVE) PHOSPHORUS 3.4 2.5 - 4.5 mg/dL 10/14/2023 8:26 AM CUSTOMER CARE REPRESENTATIVE [facility] Blood Collection / Unknown 10/14/2023 2:35 AM CUSTOMER CARE REPRESENTATIVE 10/14/2023 7:22 AM CUSTOMER CARE REPRESENTATIVE us Erik Chairez MD CHEMISTRY ORDERABLES Final Resul t Performing Organization Address City/[facility] Co de Phone Number [id number] [place] [address] * MAGNESIUM LEVEL (10/14/2023 2:35 AM CUSTOMER CARE REPRESENTATIVE) MAGNESIUM 2.5 1.6 - 2.6 mg/dL 10/14/2023 8:26 AM CUSTOMER CARE REPRESENTATIVE [facility] DaWanda [facility] Blood Collection / Unknown 10/14/2023 2:35 AM CUSTOMER CARE REPRESENTATIVE 10/14/2023 7:22 AM CUSTOMER CARE REPRESENTATIVE us Erik Chairez MD CHEMISTRY ORDERABLES Final Resul t Performing Organization Address City/[facility]/ZIP Co de Phone Number [facility] [id number] [place] [address] * (ABNORMAL) CBC WITH DIFFERENTIAL (10/14/2023 2:35 AM CUSTOMER CARE REPRESENTATIVE) [facility] WBC 9.2 4.5 - 10.5 K/uL 10/14/2023 8:02 AM [facility] RBC 3.58(L) 4.50 - 5.40 M/uL 10/14/2023 8:02 AM [facility] HEMOGLOBIN 11.0(L) 13.6 - 16.5 g/dL 10/14/2023 8:02 AM [facility] HEMATOCRIT 33.5(L) 40.0 - 48.0 % 10/14/2023 8:02 AM [facility] MCV 93.6 82.0 - 99.0 fL 10/14/2023 8:02 AM [facility] MCH 30.6 27.8 - 34.5 pg 10/14/2023 8:02 AM [facility] DaWanda [facility] MCHC 32.7 32.5 - 35.5 g/dL 10/14/2023 8:02 AM [facility] DaWanda [facility] RDW 17.7(H) 11.5 - 14.5 % 10/14/2023 8:02 AM [facility] PLATELETS 214 160 - 420 K/uL 10/14/2023 8:02 AM [facility] DaWanda [facility] MPV 9.2 8.7 - 12.7 fL 10/14/2023 8:02 AM [facility] DaWanda [facility] NEUTROPHILS 58 % 10/14/2023 8:02 AM [facility] LYMPHOCYTES 24 % 10/14/2023 8:02 AM [facility] MONOCYTES 8 % 10/14/2023 8:02 AM CUSTOMER CARE REPRESENTATIVE [facility] EOSINOPHILS 9 % 10/14/2023 8:02 AM [facility] BASOPHILS 0 % 10/14/2023 8:02 AM [facility] NEUTROPHIL ABSOLUTE 5.40 1.90 - 7.00 K/uL 10/14/2023 8:02 AM [facility] DaWanda [facility] LYMPHOCYTE ABSOLUTE 2.20 0.70 - 4.50 K/uL 10/14/2023 8:02 AM [facility] MONOCYTE ABSOLUTE 0.70 0.10 - 1.30 K/uL 10/14/2023 8:02 AM [facility] EOSINOPHIL ABSOLUTE 0.90(H) 0.00 - 0.70 K/uL 10/14/2023 8:02 AM [facility] BASOPHILS ABSOLUTE 0.00 0.00 - 0.20 K/uL 10/14/2023 8:02 AM [facility] Blood Collection / Unknown 10/14/2023 2:35 AM CUSTOMER CARE REPRESENTATIVE 10/14/2023 7:22 AM CUSTOMER CARE REPRESENTATIVE Erik Chairez MD HEMATOLOGY ORDERABLES Final Resu lt [facility] CLIA# [id number] [place] [address] * (ABNORMAL) COMPREHENSIVE METABOLIC PANEL (10/14/2023 2:35 AM CUSTOMER CARE REPRESENTATIVE) SODIUM 135(L) 136 - 145 mmol/L 10/14/2023 8:26 AM [facility] POTASSIUM 4.0 3.4 - 5.1 mmol/L 10/14/2023 8:26 AM [facility] CHLORIDE 97(L) 98 - 107 mmol/L 10/14/2023 8:26 AM [facility] CO2 24 22 - 29 mmol/L 10/14/2023 8:26 AM [facility] CALCIUM 9.5 8.6 - 10.4 mg/dL 10/14/2023 8:26 AM [facility] BUN 36(H) 6 - 20 mg/dL 10/14/2023 8:26 AM [facility] CREATININE 1.18(H) 0.67 - 1.17 mg/dL 10/14/2023 8:26 AM [facility] DaWanda [facility] Comment:The GFR result is no t clinically significant on patients <18 or >70 years of age. GLUCOSE 84 74 - 99 mg/dL 10/14/2023 8:26 AM [facility] TOTAL PROTEIN 7.4 6.3 - 8.7 g/dL 10/14/2023 8:26 AM [facility] ALBUMIN 3.6 3.5 - 5.2 g/dL 10/14/2023 8:26 AM [facility] BILIRUBIN TOTAL 0.6 0.2 - 1.1 mg/dL 10/14/2023 8:26 AM [facility] ALKALINE PHOSPHATASE 99 40 - 150 U/L 10/14/2023 8:26 AM [facility] AST 22 0 - 41 U/L 10/14/2023 8:26 AM [facility] ALT 16 0 - 41 U/L 10/14/2023 8:26 AM [facility] GFR >60 mL/min/1.7 3 sq meter 10/14/2023 8:26 AM [facility] Comment:eGFR calculated with 2020 CKD-EPI equation. Vegetarian diet, extremely high or low muscle mass, and may affect results. Cystatin C with Glomerular Filtration Rate is a suitable alternative for these patients. ANION GAP 14 8 - 16 mmol/L 10/14/2023 8:26 AM [facility] Blood Collection / Unknown 10/14/2023 2:35 AM CUSTOMER CARE REPRESENTATIVE 10/14/2023 7:22 AM CUSTOMER CARE REPRESENTATIVE us Erik Chairez MD CHEMISTRY ORDERABLES Final Resul t [facility] CLIA# [id number] [place] [address] documented in this encounter Visit Diagnoses Not on filedocumented in this encounter Additional Health Concerns Infection Onset Date Last Indicated Resolved Time CRE-CP Comment:10/09/23 Klebsiella pneumoniae, Sputum 10/09/2023 10/09/2023 05/28/2024 2:37 PM C DT Multi Drug Resistant Organis m (MDRO) Comment:10/09/23 Klebsiella pneumoniae, CRE-CP organism, Sputum 10/09/2023 10/09/2023 [employer]-CP Comment:10/09/23 Klebsiella pneumoniae, Sputum 10/09/2023 05/28/2024 documented as of this encounter
--- OUTSIDE RECORDS SUMMARY | 2025-04-18 14:36 | XMS_ITS | Encounter Summary ---
Author Organization [facility] Address [address] [place] [address] Care Team Providers Care Party Plan Sales Unit Sales Leader Name Role Phone Unavailable Primary Care Provider Unavailabl e Encounter Details Date Type Department Care Team (Late st Contact Info) Description 11/10/2023 Lab Requisition [facility] Laboratory Services [address] [place] [address] [place] [id number] [place] [address] Social History Tobacco Use Types Packs/Day Years Used Date Smoking Tobacco: Never Assessed Sex and Gender Information Value Date Recorded Sex Assigned at Not on file Legal Sex Male 9:18 AM FISHING GUIDE Gender Identity Not on file Sexual Orientation Not on file documented as of this encounter Plan of Treatment Not on file documented as of this encounter Procedures Procedure Name Priority Date/Time Associated Diagnosis Comments CBC WITH DIFFERENTIAL Routine 11/10/2023 6:10 AM FISHING GUIDE BASIC METABOLIC PANEL Routine 11/10/2023 6:10 AM FISHING GUIDE documented in this encounter Results * (ABNORMAL) CBC WITH DIFFERENTIAL (11/10/2023 6:10 AM FISHING GUIDE) WBC 7.9 4.5 - 10.5 K/uL 11/10/2023 6:55 AM FISHING GUIDE [facility] RBC 3.65(L) 4.50 - 5.40 M/uL 11/10/2023 6:55 AM FISHING GUIDE [facility] HEMOGLOBIN 10.8(L) 13.6 - 16.5 g/dL 11/10/2023 6:55 AM FISHING GUIDE [facility] HEMATOCRIT 33.6(L) 40.0 - 48.0 % 11/10/2023 6:55 AM FISHING GUIDE [facility] MCV 92.0 82.0 - 99.0 fL 11/10/2023 6:55 AM FISHING GUIDE [facility] MCH 29.7 27.8 - 34.5 pg 11/10/2023 6:55 AM FISHING GUIDE [facility] MCHC 32.2(L) 32.5 - 35.5 g/dL 11/10/2023 6:55 AM FISHING GUIDE [facility] RDW 17.0(H) 11.5 - 14.5 % 11/10/2023 6:55 AM FISHING GUIDE [facility] PLATELETS 251 160 - 420 K/uL 11/10/2023 6:55 AM FISHING GUIDE [facility] MPV 9.2 8.7 - 12.7 fL 11/10/2023 6:55 AM FISHING GUIDE [facility] NEUTROPHILS 62 % 11/10/2023 6:55 AM FISHING GUIDE [facility] LYMPHOCYTES 22 % 11/10/2023 6:55 AM FISHING GUIDE [facility] MONOCYTES 5 % 11/10/2023 6:55 AM FISHING GUIDE [facility] EOSINOPHILS 10 % 11/10/2023 6:55 AM FISHING GUIDE [facility] BASOPHILS 1 % 11/10/2023 6:55 AM FISHING GUIDE [facility] NEUTROPHIL ABSOLUTE 4.90 1.90 - 7.00 K/uL 11/10/2023 6:55 AM FISHING GUIDE [facility] LYMPHOCYTE ABSOLUTE 1.70 0.70 - 4.50 K/uL 11/10/2023 6:55 AM FISHING GUIDE [facility] MONOCYTE ABSOLUTE 0.40 0.10 - 1.30 K/uL 11/10/2023 6:55 AM FISHING GUIDE [facility] EOSINOPHIL ABSOLUTE 0.80(H) 0.00 - 0.70 K/uL 11/10/2023 6:55 AM FISHING GUIDE [facility] BASOPHILS ABSOLUTE 0.10 0.00 - 0.20 K/uL 11/10/2023 6:55 AM [facility] Blood 11/10/2023 6:10 AM FISHING GUIDE 11/10/2023 6:41 AM FISHING GUIDE Erik Chairez MD HEMATOLOGY ORDERABLES Final Resu lt [facility] CLIA# [id number] [place] [address] * (ABNORMAL) BASIC METABOLIC PANEL (11/10/2023 6:10 AM FISHING GUIDE) SODIUM 139 136 - 145 mmol/L 11/10/2023 7:14 AM [facility] POTASSIUM 4.2 3.4 - 5.1 mmol/L 11/10/2023 7:14 AM [facility] CHLORIDE 103 98 - 107 mmol/L 11/10/2023 7:14 AM [facility] CO2 26 22 - 29 mmol/L 11/10/2023 7:14 AM [facility] CALCIUM 9.4 8.6 - 10.4 mg/dL 11/10/2023 7:14 AM [facility] BUN 39(H) 6 - 20 mg/dL 11/10/2023 7:14 AM [facility] CREATININE 0.98 0.67 - 1.17 mg/dL 11/10/2023 7:14 AM [facility] Comment:The GFR result is no t clinically significant on patients <18 or >70 years of age. GLUCOSE 111(H) 74 - 99 mg/dL 11/10/2023 7:14 AM [facility] GFR >60 mL/min/1.7 3 sq meter 11/10/2023 7:14 AM [facility] Comment:eGFR calculated with 2020 CKD-EPI equation. Vegetarian diet, extremely high or low muscle mass, and may affect results. Cystatin C with Glomerular Filtration Rate is a suitable alternative for these patients. 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
--- OUTSIDE RECORDS SUMMARY | 2025-04-18 14:36 | XMS_ITS | Encounter Summary ---
Author Organization [facility] Address [address] [place] [address] Care Team Providers Care Electromatic Typist Name Role Phone Unavailable Primary Care Provider Unavailabl e Encounter Details Date Type Department Care Team (Late st Contact Info) Description 10/11/2023 Lab Requisition [facility] Laboratory Services [address] [place] [address] [place] [address] [place] [address] Social History Tobacco Use Types Packs/Day Years Used Date Smoking Tobacco: Never Assessed Sex and Gender Information Value Date Recorded Sex Assigned at Not on file Legal Sex Male 9:18 AM LEAD PAINTER Gender Identity Not on file Sexual Orientation Not on file documented as of this encounter Plan of Treatment Not on file documented as of this encounter Procedures Procedure Name Priority Date/Time Associated Diagnosis Comments CBC WITH DIFFERENTIAL Routine 10/11/2023 3:30 AM LEAD PAINTER TRIGLYCERIDE Routine 10/11/2023 3:30 AM LEAD PAINTER MAGNESIUM LEVEL Routine 10/11/2023 3:30 AM LEAD PAINTER RENAL FUNCTION PANEL Routine 10/11/2023 3:30 AM LEAD PAINTER documented in this encounter Results * (ABNORMAL) TRIGLYCERIDE (10/11/2023 3:30 AM LEAD PAINTER) TRIGLYCERIDE 192(H) <150 mg/dL 10/11/2023 6:28 AM LEAD PAINTER [facility] Blood 10/11/2023 3:30 AM LEAD PAINTER 10/11/2023 5:43 AM LEAD PAINTER Narrative [facility] - 10/11/2023 6:28 AM LEAD PAINTER TRIGLYCERIDES mg/dL Normal < 150 Borderline High 150 - 199 High 200 - 499 Very High >= 500 Based on AHA/NCEP Guidelines. Erik Chairez MD CHEMISTRY ORDERABLES Final Resul t Performing Organization Address City/[facility]/ZIP Co de Phone Number [facility] [[email or web address] CLIA# [id number] [place] [address] * MAGNESIUM LEVEL (10/11/2023 3:30 AM LEAD PAINTER) MAGNESIUM 2.2 1.6 - 2.6 mg/dL 10/11/2023 6:28 AM [facility] Blood 10/11/2023 3:30 AM LEAD PAINTER 10/11/2023 5:43 AM LEAD PAINTER Erik Chairez MD CHEMISTRY ORDERABLES Final Resul t Performing Organization Address City/[facility]/ZIP Co de Phone Number [facility] [[email or web address] CLIA# [id number] [place] [address] * (ABNORMAL) CBC WITH DIFFERENTIAL (10/11/2023 3:30 AM LEAD PAINTER) WBC 8.8 4.5 - 10.5 K/uL 10/11/2023 6:05 AM [facility] RBC 3.43(L) 4.50 - 5.40 M/uL 10/11/2023 6:05 AM [facility] HEMOGLOBIN 10.5(L) 13.6 - 16.5 g/dL 10/11/2023 6:05 AM [facility] HEMATOCRIT 32.7(L) 40.0 - 48.0 % 10/11/2023 6:05 AM [facility] MCV 95.4 82.0 - 99.0 fL 10/11/2023 6:05 AM [facility] MCH 30.7 27.8 - 34.5 pg 10/11/2023 6:05 AM [facility] LABORAT[facility] MCHC 32.2(L) 32.5 - 35.5 g/dL 10/11/2023 6:05 AM [facility] RDW 18.7(H) 11.5 - 14.5 % 10/11/2023 6:05 AM [facility] LABORATORY [facility] PLATELETS 218 160 - 420 K/uL 10/11/2023 6:05 AM [facility] MPV 9.3 8.7 - 12.7 fL 10/11/2023 6:05 AM LEAD PAINTER [facility] NEUTROPHILS 67 % 10/11/2023 6:05 AM LEAD PAINTER [facility] LYMPHOCYTES 18 % 10/11/2023 6:05 AM LEAD PAINTER [facility] MONOCYTES 7 % 10/11/2023 6:05 AM LEAD PAINTER [facility] LAB[facility] EOSINOPHILS 7 % 10/11/2023 6:05 AM [facility] BASOPHILS 1 % 10/11/2023 6:05 AM LEAD PAINTER [facility] NEUTROPHIL ABSOLUTE 5.90 1.90 - 7.00 K/uL 10/11/2023 6:05 AM [facility] LABOR[facility]ORY [facility] LYMPHOCYTE ABSOLUTE 1.60 0.70 - 4.50 K/uL 10/11/2023 6:05 AM [facility] LAB[facility] MONOCYTE ABSOLUTE 0.60 0.10 - 1.30 K/uL 10/11/2023 6:05 AM [facility] EOSINOPHIL ABSOLUTE 0.60 0.00 - 0.70 K/uL 10/11/2023 6:05 AM LEAD PAINTER [facility] BASOPHILS ABSOLUTE 0.10 0.00 - 0.20 K/uL 10/11/2023 6:05 AM [facility] Blood 10/11/2023 3:30 AM LEAD PAINTER 10/11/2023 5:43 AM LEAD PAINTER us Erik Chairez MD HEMATOLOGY ORDERABLES Final Resu lt [facility] [[email or web address] CLIA# [id number] [address] [place] [address] * (ABNORMAL) RENAL FUNCTION PANEL (10/11/2023 3:30 AM LEAD PAINTER) SODIUM 145 136 - 145 mmol/L 10/11/2023 6:28 AM [facility] POTASSIUM 4.0 3.4 - 5.1 mmol/L 10/11/2023 6:28 AM [facility] CHLORIDE 106 98 - 107 mmol/L 10/11/2023 6:28 AM [facility] CO2 26 22 - 29 mmol/L 10/11/2023 6:28 AM [facility] CALCIUM 9.3 8.6 - 10.4 mg/dL 10/11/2023 6:28 AM [facility] BUN 38(H) 6 - 20 mg/dL 10/11/2023 6:28 AM [facility] CREATININE 1.38(H) 0.67 - 1.17 mg/dL 10/11/2023 6:28 AM [facility] Comment:The GFR result is no t clinically significant on patients <18 or >70 years of age. GLUCOSE 85 74 - 99 mg/dL 10/11/2023 6:28 AM [facility] ALBUMIN 3.4(L) 3.5 - 5.2 g/dL 10/11/2023 6:28 AM [facility] PHOSPHORUS 3.9 2.5 - 4.5 mg/dL 10/11/2023 6:28 AM [facility] GFR 51 mL/min/1.7 3 sq meter 10/11/2023 6:28 AM [facility] Comment:eGFR calculated with 2020 CKD-EPI equation. Vegetarian diet, extremely high or low muscle mass, and may affect results. Cystatin C with Glomerular Filtration Rate is a suitable alternative for these patients. 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
--- OUTSIDE RECORDS SUMMARY | 2025-04-18 14:36 | XMS_ITS | Referral Summary ---
Author Organization [facility] Medical Office Building B Address [address] [place] [address] Care Team Providers Care Certified Activities Director Name Role Phone Demond Stark MD Primary Care Provider Encounters Date Type Department Care Team Description 03/16/2025 Orders Only [facility] Cardiology [address] [facility] [address] [place] [phone] ProviderTaylor MD 03/16/2025 2:30 PM CDT Office Visit [facility] Cardiology [address] [facility] [address] [place] [phone] Mando Luna MD Persistent atrial fibrillation (HCC) (Primary Dx); Coronary arteriosclerosis in elim ira artery; Chronic anticoagulation; Nonrheumatic aortic (valve) stenosis; Cardiomyopathy, unspecified type (HCC) 03/01/2025 Telephone [facility] Cardiology [address] [place] [address] [address] [place] [phone] Mando Luna MD 01/19/2025 Telephone [facility] Cardiology [address] [facility] [address] [place] [phone] Mando Luna MD from Last 3 Months Allergies Active Allergy Reactions Criticality Noted Date Comments Diphenhydramine Hallucinations Medium 11/27/2023 Was not able to sleep and made him more anxious Lisinopril Cough Low Reaction: Cough, Pravastatin Muscle pain Medium Reaction: Muscular Pain, Quetiapine Other (See comments) Low 06/05/2024 Hallucinations, insomnia Simvastatin Muscle pain Medium Reaction: Muscular Pain, Ssdkexu-Uwi-Fcb Reductase Inhibitors Muscle pain,Other (See comments) Medium 10/03/2015 Pt reports leg weakness/heavine ss when taking zocor. Medications levothyroxine (SYNTHROID) 112 mcg tablet Take 1 tablet (112 mcg total) by mouth pitching coach before breakfast Active aspirin 81 mg tablet [...] (COZAAR) 50 mg tabletIndications:Co ronary arteriosclerosis in elim ira artery,Cardiomyopath y, unspecified type (HCC) Take 1 tablet (50 mg total) by mouth daily 90 tablet 3 03/16/20 25 026 Active Active Problems Problem Noted Date Diagnosed Date Cardiomyopathy 03/16/2025 Nonrheumatic aortic (valve) stenosis 03/16/2025 Dysfunction of right eustachian tube 08/31/2024 Assessment & Plan (10/05/2024 10:54 AM SHOPPER MARKETING MANAGER): Avoid ear cleaning techniques Avoid water to ears Follow up in 9 months for right ear tube check, earlier with ear drainage Assessment & Plan (08/31/2024 11:40 AM SHOPPER MARKETING MANAGER): Right myringotomy with T-tube placement Risks [...] 07/09/2024 Assessment & Plan (08/31/2024 11:39 AM SHOPPER MARKETING MANAGER): Right myringotomy with T-tube placement Risks [...] 08/07/2017 Assessment & Plan (08/07/2017 6:01 PM SHOPPER MARKETING MANAGER): Has had elevated LFTs and a fatty liver. Bradycardia 08/07/2017 Assessment & Plan (08/07/2017 5:58 PM SHOPPER MARKETING MANAGER): Asymptomatic bradycardia, on low-dose metoprolol which may eventually need to be reduced or discontinued. Traumatic subdural hematoma of neuraxis 10/15/19 17 Overview (12/28/2016): Traumatic subdural hematoma without loss of consciousness, sequela Statin intolerance 10/15/2016 Overview (12/28/2016): Statin intolerance Essential hypertension 07/20/2013 Overview (12/28/2016): Hypertension Assessment & Plan (08/07/2017 5:57 PM SHOPPER MARKETING MANAGER): Hypertension is not under good control; [...] HYPERLIPIDEMIA Assessment & Plan (08/07/2017 6:03 PM SHOPPER MARKETING MANAGER): Has refued further attempts at statin therapy. History of coronary artery bypass surgery 2009 Overview (12/26/2016): AORTOCORONARY BYPASS Coronary arteriosclerosis in elim ira artery 12/20 Overview (08/07/2017): CRNRY ATHRSCL NATVE VSSL 2009: Non STEMI and CABG x3 (HOBSON to the LAD, sequential RA to OM and D1) Assessment & Plan (08/07/2017 6:00 PM SHOPPER MARKETING MANAGER): 2009: Non STEMI and CABG x3 [...] 03/04/2018 Assessment & Plan (08/07/2017 5:58 PM SHOPPER MARKETING MANAGER): Patient is going to have knee surgery soon and needs preoperative clearance. Coronary artery disease appears stable. Low risk for cardiac event with proposed surgery. 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/2009 03/25/2023 Overview (12/28/2016): SUBENDO INFARCT, SUBSEQ Immunizations Immunization Administration Dates Next Due Influenza, Split 07/24/2010 Social History Tobacco Use Types Packs/Day Years Used Date Smoking Tobacco: Former Cigarettes Q uit: 8 Smokeless Tobacco: Former Tobacco Cessation:Counseling Given: Not [...] on file Legal Sex Male 8:49 AM SHOPPER MARKETING MANAGER Gender Identity Not on file Sexual Orientation Not on file Last Filed Vital Signs Vital Sign Reading Time Taken Comments Blood Pressure 138/70 03/16/2025 2:40 PM CDT Pulse 88 03/16/2025 2:40 PM CDT Temperature 36.3 C (97.4 F) 09/22/2024 1:04 PM SHOPPER MARKETING MANAGER Respiratory Rate 18 09/22/2024 1:04 PM SHOPPER MARKETING MANAGER Oxygen Saturation 97% 03/16/2025 2:40 PM CDT Inhaled Oxygen Concentration - - Weight 97.1 kg (214 lb) 03/16/2025 2:40 PM CDT Height 185.4 cm (6' 1) 03/16/2025 2:40 PM CDT Body Mass Index 28.23 03/16/2025 2:40 PM CDT Plan of Treatment Not on file Medical Devices Implanted Type Area Thermal Technician Device Identifier Shelf Expiration Date Model / Serial / Lot [employer] 1.32mm 4.8mm Modify Ear T Tube Ventilation Ultrasil Sterile Blue [id number] - [id number] Implanted:Qty: 1 on 09/22/2024 by Laura Oakes DO at [facility] Right: Ear [employer] 07/13/2034 [id number] / / [id number] Insurance MEDICARE MEDICARE [facility] MEDICARE SUPPLEMENT Care Teams Certified Activities Director Relationship Specialty Start Date End Date Demond Stark MD PCP - General 07/23/11
--- NOTE | 2025-04-18 15:34 | ED.GENADULT ---
HPI - General Adult General Chief complaint: Abdominal Pain Stated complaint: ABD PAIN Time Seen by Provider: 04/18/25 15:20 History of Present Illness HPI narrative: 85-year-old male with history of diverticulitis with colostomy and current G-tube presents the emergency department for evaluation for coffee-ground emesis and dark stool output from his ostomy. Patient also does report intermittent abdominal pain and increased generalized weakness. At time of evaluation patient denies any current pain but Related Data Home Medications ?Medication ?Instructions ?Recorded ?Confirmed ?Last Taken ?Type loratadine 10 mg tablet (Claritin) 10 mg PO DAILY 05/15/22 04/13/25 11/05/24 History rivaroxaban 20 mg tablet (Xarelto) 20 mg PO QPM 07/30/23 04/13/25 11/05/24 History simethicone 62.5 mg oral strips 1 strip PO BID 12/02/23 04/13/25 11/05/24 History (Gas-X) aspirin 81 mg chewable tablet 1 tablet PO DAILY 01/06/24 04/13/25 11/05/24 History docusate sodium 100 mg capsule 100 mg PO DAILY 03/25/24 04/13/25 11/05/24 History (Stool Softener) pyridoxine (vitamin B6) 100 mg 100 mg PO DAILY 03/25/24 04/13/25 11/05/24 History tablet levothyroxine 112 mcg tablet 112 mcg PO DAILY@0630 11/06/24 04/13/25 11/05/24 History losartan 25 mg tablet mg 04/05/25 04/13/25 Unknown History Allergies Allergy/AdvReac Type Severity Reaction Status Date / Time Wcxhxqz-KYS-AdI Reductase Allergy Unknown Joint Pain Verified 04/13/25 09:02 Inhibitor (Budwnst-Kdj-Urp & MUSCLE Reductase Inhibitor) WEAKNESS diphenhydramine (From AdvReac Agitated Verified 04/13/25 09:02 Benadryl) halobetasol AdvReac Rash Verified 04/13/25 09:02 quetiapine (From Seroquel) AdvReac Agitated Verified 04/13/25 09:02 Review of Systems Review of Systems: All systems reviewed & are unremarkable except as noted in HPI and below PMFSH Past Medical History Medical History (Updated 04/18/25 @ 18:30 by Alina Arriola APN-C) Diastolic heart failure History of coronary artery disease Ventral hernia Positive occult stool blood test Diarrhea Grade II diastolic dysfunction History of open sigmoidectomy Vitamin D deficiency, unspecified Paroxysmal atrial fibrillation Brain bleed Prostate CA Basal cell carcinoma Hepatitis B Prediabetes Hypothyroid Constipation GERD (gastroesophageal reflux disease) Hyperlipidemia Hypertension CAD (coronary artery disease) Myocardial infarct Seizures Surgical History Surgical History S/P hernia repair 08/02/2023 had open repair of right inguinal hernia due to 70% of the patient's small bowel contents being within the hernia, complicated by postoperative abscess requiring percutaneous drain, 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 The patient had postoperative shock and remained intubated for a prolonged period requiring tracheostomy and transfer to LTAC 10/09/2023 S/P percutaneous endoscopic gastrostomy (PEG) tube placement (09/25/23) With subsequent removal History of tracheostomy 09/13/2023 with subsequent removal History of colostomy Status post Willy procedure 09/04/23 Extensive (2 1/2 hrs) adhesiolysis, sigmoidectomy with end descending colostomy and Willy procedure Hx of local excision of skin lesion H/O arthroscopy lt knee H/O prostatectomy Hx of colonoscopy 2012 - Dr. Yen Hx of CABG 11/2009 - triple bypass surgery at [facility] Family History Family History Father Malignant neoplasm of prostate Sibling Ovarian cancer Mother , epilepsy No problems noted. Sibling No problems noted. Social History Social History Social History: Patient lives with his Cherie. He has a distant history of smoking a 12 pack per year history. He used to rarely drinks alcohol and only in moderation. Code status: Full code Surrogate decision maker: Sid () Smoking packs per day: 2 Smoking cigarettes per day: 40.0 Years smoked: 12 Smoking pack-years: 24.00 Smoking status: Former smoker Tobacco type: cigarettes Second hand tobacco smoke exposure: No Smoking end date: 09/23/70 Alcohol intake: never Alcohol use details: RARELY - 1/2 CASE BEER/YR Substance use: never Substance use type: does not use Do You Feel Safe in your Home?: Yes Lack of Transportation: No Lack of Food: Never True Current Housing: I Have Housing Concerned About Future Housing: No Difficulty Paying Gas/Electric Bills: No Difficulty Paying for Meds: No Currently Unemployed: No Education: High School Diploma/GED Difficulty w/ Childcare or Family Care: No Living arrangements: with family Occupation/Education: retired 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 EYES: PERRLA/EOMI, conjunctivae clear. NOSE: Normal no drainage EARS:TMS clear with good light reflex. THROAT: Pharynx clear, no exudate. NECK: Supple. No adenopathy, no masses. RESPIRATORY: Airway patent, respirations nonlabored. Clear to auscultation bilaterally, no rales, rhonchi, wheezing. CARDIOVASCULAR: Regular rate and rhythm without murmurs rubs or gallops. ABDOMINAL: Lower abdominal tenderness to palpation MUSCULOSKELETAL: Moves all extremities. Strength/ROM intact, No edema, No calf tenderness. NEURO: Alert. Cranial nerves II through XII intact. Good gait. Good coordination SKIN: Warm, dry. Normal Color Hemoccult-positive stool Course Vital Signs Vital signs: Vital Signs Temperature 97.9 F 04/18/25 14:36 Pulse Rate 85 04/18/25 14:36 Respiratory Rate 18 04/18/25 14:36 Blood Pressure 113/68 04/18/25 14:36 Pulse Oximetry 98 04/18/25 14:36 Oxygen Delivery Room Air 04/18/25 14:36 Temperature 97.8 F 04/18/25 15:47 Pulse Rate 84 04/18/25 15:47 Respiratory Rate 16 04/18/25 15:47 Blood Pressure 130/86 04/18/25 15:47 Pulse Oximetry 98 04/18/25 15:47 Oxygen Delivery Room Air 04/18/25 15:47 Medical Decision Making MDM Narrative Medical decision making narrative: 85-year-old male on Xarelto and aspirin presented emergency department for evaluation for coffee-ground emesis and dark stool and his ostomy. Stool was melena and Hemoccult positive. Patient has a stable blood pressure and is not tachycardic. Patient is alert and appropriate. Patient is no longer having emesis in the emergency department. Patient does have a mild MOISÉS he was treated with 1 L of lactated Ringer's. Patient is afebrile but does have a leukocytosis of 11.1 hemoglobin of 12.7, this is higher than his most recent hemoglobin. Patient's INR is 1.4, patient is on Xarelto. Patient creatinine is 1.53 which is higher than his typical baseline. UA was negative for infection. CT scan does show multiple abdominal wall defects on exam these all feel to be reducible. Low concern for incarceration of these hernias. CT scan was concerning for small bowel obstruction. I discussed the case with both surgery and with GI and they are comfortable holding off on the NG tube since patient is no longer having any emesis. Patient will be NPO and admit to the hospitalist. Patient family were updated on the results of the workup and plan for admission. All questions concerns were addressed. Patient was started on IV Protonix in the ED this will be continued upstairs. Critical Care Procedure Note Authorized and Performed by: Chele Delcid Total critical care time: Approximately 36 minutes Due to a high probability of clinically significant, life threatening deterioration, the patient required my highest level of preparedness to intervene emergently and I personally spent this critical care time directly and personally managing the patient. This critical care time included obtaining a history; examining the patient; pulse oximetry; ordering and review of studies; arranging urgent treatment with development of a management plan; evaluation of patient's response to treatment; frequent reassessment; and, discussions with other providers. This critical care time was performed to assess and manage the high probability of imminent, life-threatening deterioration that could result in multi-organ failure. It was exclusive of separately billable procedures and treating other patients and teaching time. Please see MDM section and the rest of the note for further information on patient assessment and treatment. Differential Diagnosis Differential Diagnosis: Upper GI bleed, small bowel obstruction, colitis, diverticulitis, anemia Vital Signs Vital Signs: Vital Signs Temperature 97.9 F 04/18/25 14:36 Pulse Rate 85 04/18/25 14:36 Respiratory Rate 18 04/18/25 14:36 Blood Pressure 113/68 04/18/25 14:36 Pulse Oximetry 98 04/18/25 14:36 Oxygen Delivery Room Air 04/18/25 14:36 Temperature 97.8 F 04/18/25 15:47 Pulse Rate 84 04/18/25 15:47 Respiratory Rate 16 04/18/25 15:47 Blood Pressure 130/86 04/18/25 15:47 Pulse Oximetry 98 04/18/25 15:47 Oxygen Delivery Room Air 04/18/25 15:47 Lab Data Lab results reviewed: Yes I reviewed the patient's lab results. 04/18/25 15:30 04/18/25 15:30 Labs: Lab Results 04/18/25 04/18/25 Range/Units 15:30 15:44 WBC 11.1 H (4.5-10.0) K/mm3 RBC 4.18 L (4.6-6.20) M/mm3 Hgb 12.7 L (14.0-18.0) g/dL Hct 40.3 L (42.0-52.0) % MCV 96.4 (80-100) fl MCH 30.4 (26-34) pg MCHC 31.5 L (32-36) g/dl RDW 13.0 (11.5-14.5) % Plt Count 263 (150-375) k/mm3 MPV 10.1 (7.4-10.4) fl Immature Gran % (Auto) 0.5 (0-0.5) % Neut % (Auto) 69.4 (45.5-73.1) % Lymph % (Auto) 19.7 (18.3-44.2) % [place] % (Auto) 5.7 (2.6-8.5) % Eos % (Auto) 4.2 (0-4.4) % Baso % (Auto) 0.5 (0.2-1.2) % Lymph # (Auto) 2.19 (0.9-3.2) K/mm3 [place] # (Auto) 0.6 (0.1-0.6) K/mm3 Eos # (Auto) 0.5 H (0-0.3) K/mm3 Baso # (Auto) 0.1 (0.0-0.1) K/mm3 Abs Immat Gran (auto) 0.05 H (0.00-0.031) K/mm3 Absolute Neuts (auto) 7.7 H (1.3-6.7) K/mm3 Absolute Nucleated RBC 0.000 (0.0-0.012) K/mm3 Nucleated RBC % 0.0 (0.0-0.2) % PT 17.1 H (11.1-14.7) Seconds INR 1.4 APTT 35.8 (22.3-36.8) Seconds Sodium 140 (137-145) mmol/L Potassium 3.8 (3.4-5.0) mmol/L Chloride 102 (98-107) mmol/L Carbon Dioxide 26 (22-30) mmol/L Anion Gap 12 (4-12) mmol/L BUN 32 H (9-20) mg/dL Creatinine 1.53 H (0.7-1.3) mg/dL Estim Creat Clear Calc 35 ml/min Estimated GFR 43 L (59 - ) Glucose 131 H (65-110) mg/dL Calcium 9.3 (8.4-10.2) mg/dL Total Bilirubin 0.4 (0.2-1.3) mg/dL AST 30 (17-59) U/L ALT 15 (6-50) U/L Alkaline Phosphatase 77 (38-126) U/L Total Protein 8.1 (6.3-8.2) g/dL Albumin 4.3 (3.5-5.1) g/dL Urine Color Yellow (Yellow) Urine Appearance Clear (Clear) Urine pH 5.5 (5.0-9.0) Ur Specific [place] 1.031 (1.001-1.035) Urine Protein 1+ H (Negative) mg/dL Urine Glucose (UA) Negative (Negative) mg/dL Urine Ketones Trace H (Negative) mg/dL Ur Blood (Man) Negative (Negative) Urine Nitrate Negative (Negative) Urine Bilirubin Negative (Negative) Urine Urobilinogen 1.0 (<2.0) mg/dL Leukocyte Esterase Rfl Negative (Negative) MOLLY/UL Urine RBC 0-2 (0-2) /hpf Urine WBC 0-5 (0-3) /hpf Ur Squamous Epith Cells Occasional (Few) /hpf Urine Bacteria None seen /hpf Urine Casts 3-5 Blood Type A Negative Antibody Screen Negative Imaging Data Radiologist's impression: Impressions Abdomen/Pelvis CT 04/18/25 17:31 IMPRESSION: Mild esophagitis/gastritis. Small bowel herniation into the left lower quadrant colostomy defect and a supraumbilical ventral hernia with evidence of small bowel obstruction and mesenteric edema in both locations. A third herniation of small bowel is noted back into the colostomy defect, with mild wall thickening but no significant dilation. A fourth herniation of small bowel is present in a umbilical hernia, without complication. Critical Care Time Critical Care Time Critical Care Time: Yes Total Critical Care Time: 36 Discharge Plan Discharge Clinical Impression: Abdominal pain, Acute upper GI bleed, MOISÉS (acute kidney injury), Small bowel obstruction Patient Disposition: Still a Patient Condition: Serious Instructions: Antibiotic Form Patient Language: Barbadian Prescriptions: No Action losartan 25 mg tablet aspirin 81 mg tablet,chewable 1 tablet PO DAILY docusate sodium [Stool Softener] 100 mg capsule 100 mg PO DAILY pyridoxine (vitamin B6) 100 mg tablet 100 mg PO DAILY hydrochlorothiazide 12.5 mg capsule 12.5 mg PO DAILY Qty: 90 0RF cephalexin 500 mg capsule 500 mg PO QID 7 Days Qty: 28 0RF Gas-X 62.5 mg strip 1 strip PO BID Xarelto 20 mg Tablet 20 mg PO QPM Rx Instructions: must administer with evening meal loratadine [Claritin] 10 mg tablet 10 mg PO DAILY levothyroxine 112 mcg tablet 112 mcg PO DAILY@0630 nystatin 100,000 unit/gram powder 1 applic topical TID Qty: 60 1RF famotidine 20 mg tablet 20 mg PO DAILY Qty: 90 1RF Follow-up/Referrals: Demond Stark MD [Primary Care Provider] -
[2025-04-18 15:37] LABS: Hematocrit 40.3 % (42.0-52.0); Hemoglobin 12.7 g/dL (14.0-18.0); Immature Granulocyte Percent A 0.5 % (0-0.5); Lymphocytes Absolute Auto 2.19 K/mm3 (0.9-3.2); Mean Corpuscular HGB Conc 31.5 g/dl (32-36); Mean Corpuscular Hemoglobin 30.4 pg (26-34); Mean Corpuscular Volume 96.4 fl (80-100); Nucleated Red Blood Cells Absolute Auto 0.000 K/mm3 (0.0-0.012); Nucleated Red Blood Cells Perc 0.0 % (0.0-0.2); Platelet Count Result 263 k/mm3 (150-375); Red Blood Count 4.18 M/mm3 (4.6-6.20); White Blood Count 11.1 K/mm3 (4.5-10.0)
[2025-04-18 15:48] LABS: INR 1.4; Prothrombin Time 17.1 Seconds (11.1-14.7)
[2025-04-18 15:49] LABS: Alanine Aminotransferase 15 U/L (6-50); Albumin Level 4.3 g/dL (3.5-5.1); Alkaline Phosphatase 77 U/L (38-126); Anion Gap 12 mmol/L (4-12); Aspartate Amino Transferase 30 U/L (17-59); Bilirubin,Total 0.4 mg/dL (0.2-1.3); Blood Urea Nitrogen 32 mg/dL (9-20); Calcium 9.3 mg/dL (8.4-10.2); Carbon Dioxide 26 mmol/L (22-30); Chloride 102 mmol/L (98-107); Estimated CRCL calculation 35 ml/min; Estimated Glomerular Filt Rate 43; Glucose 131 mg/dL (65-110); Partial Thromboplastin Time 35.8 Seconds (22.3-36.8); Potassium 3.8 mmol/L (3.4-5.0); Sodium 140 mmol/L (137-145); Total Protein 8.1 g/dL (6.3-8.2)
[2025-04-18 16:03] LABS: Add Urine Microscopic? YES; Appearance Urine Clear (Clear); Glucose Urine UA Negative (Negative); Leukocyte Esterase Ur Negative LEU/UL (Negative); Nitrate Urine Negative (Negative); Specific Grav Ur 1.031 (1.001-1.035)
--- OUTSIDE RECORDS SUMMARY | 2025-04-18 16:05 | XMS_ITS | Encounter Summary ---
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
--- OUTSIDE RECORDS SUMMARY | 2025-04-18 16:05 | XMS_ITS | Continuity of Care Document ---
Author Organization [facility] Address [address] [place] [address] [place] [address] Phone Care Team Providers Care Steam Locomotive Firer/Fireman Name Role Phone Karsten Mason MD Unavailable Unavailable Procedures Procedure Date Office/outpatient Visit, [facility] Advance Directives Directive Yes / No Effective Date File Name No Information Encounters Encounter Description Practice Location Reason(s) For Visit Diagnoses Date Provider Providers Copied on Encounter Office/outpat ient Visit, [facility], [id number] [place] [address] [address], [place], [place], [id number], [place] tel:[phone] [facility] No Information [address] [facility] [place], [place], [id number], [place]. tel:[phone] Family History Family Member Type Diagnosis Age At Onset No Information Payers Payer name Insurance type Covered constitution party ID Authoriza tion(s) Medicare [facility] [id number] Social History Type Description Quantity Date Captured [...]
--- OUTSIDE RECORDS SUMMARY | 2025-04-18 16:05 | XMS_ITS | Clinical Summary ---
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
--- OUTSIDE RECORDS SUMMARY | 2025-04-18 16:05 | XMS_ITS | Encounter Summary ---
Author Organization [facility] Address [address] [facility] [place] [address] Care Team Providers Care Rotary Surface Grinder Name Role Phone Demond Stark MD Primary Care Provider [phone] Encounter Details Date Type Department Care Team (Late Contact Info) Description 06/28/2023 Lab Requisition [facility] Lab [address] 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, [place] [address] Venus Mckinley, WAREHOUSE GUARD-BULK LOADER [address] [facility] 1L [place] [address] 02/04/2026 9:00 AM CDT Office Visit [facility] Physician Group - GI [address] [facility], [place] [address] KellyCallie [address] [facility] 3RD FLOOR DOOR 1 [place] [address] documented as of this encounter Procedures Procedure Name Priority Date/Time Associated Diagnosis Comments DERMATOPATHOLOGY Routine 06/26/2023 12:0 0 AM CDT documented in this encounter Results * DERMATOPATHOLOGY (06/26/2023 12:00 AM CDT) Case Report Dermatopathology Report Case: [id number] Authorizing Provider: Jaxon Anaya MD Collected: 06/26/2023 12:00 AM Ordering Location: [facility] DermPath Lab Received: 06/28/2023 09:48 [...] back.The specimen consists of an ellipse measuring 17j14x03 mm and is oriented with the suture/notch [...] by the Dermatopathology Laboratory at [facility], directed by Dr. Georgina Young. These tests need not be, and therefore are not, approved by the [place] Food and Drug Administration. The tests are used for clinical purposes. Billing Codes Specimen Charges Stain Charges 15114 1 3 4:58 PM CDT DERMATOPATHOLOGY LABORATORY Embedded Images 3 4:58 PM CDT DERMATOPATHOLOGY LABORATORY Pathology/Cytolog y TISSUE SPECIMEN FROM SKIN / Unknown 06/26/2023 06/28/2023 9:48 AM CDT Jaxon Anaya MD LAB - PATHOLOGY/CYTOLOGY ORD ERABLES Final Result DERMATOPATHOLOGY LABORATORY [facility] - Department of Dermatology [facility] [address] [place] [address], [address]rd Floor [address] [phone] documented in this encounter Visit Diagnoses Not on filedocumented in this encounter Care Teams Rotary Surface Grinder Relationship Specialty Start Date End Date Demond Stark MD [address] [place] [address] PCP - General 10/03/15 documented as of this encounter
--- OUTSIDE RECORDS SUMMARY | 2025-04-18 16:05 | XMS_ITS | Encounter Summary ---
Author Organization [facility] Address [address] [facility] [place] [address] Care Team Providers Care Chiseler Head Name Role Phone Demond Stark MD Primary Care Provider [phone] Encounter Details Date Type Department Care Team (Late Contact Info) Description 06/13/2023 Lab Requisition [facility] [address] [facility], [place] [address] Jaxon Anaya MD [address] [place], [place] [id number] Social History Tobacco Use Types Packs/Day Years Used Date Smoking Tobacco: Former Cigarettes Q uit: 09/23/1969 Smokeless Tobacco: Never Alcohol Use Standard Drinks/Week Comments Yes 0 (1 standard drink = 0.6 oz pur e alcohol) Sex and Gender Information Value Date Recorded Sex Assigned at Not on file 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 Gender Identity Not on file Sexual Orientation Not on file documented as of this encounter Plan of Treatment Upcoming Encounters Date Type Department Care Team (Late Contact Info) Description 04/29/2025 10:00 AM CDT Appointment [facility] DIAGNOSTIC RAD [address] [place] [phone] Callie Mendoza DO [address] [facility] 3RD FLOOR DOOR 1 [place] [address] 04/29/2025 1:00 PM CDT Office Visit [facility] [address] [facility], [place] [address] Venus Mckinley, BALER OPERATOR-CYLINDER BLOCK MECHANIC [address] [facility] 1L [place] [address] 02/04/2026 9:00 AM CDT Office Visit [facility] Physician Group - GI [address] [facility], [place] [address] Callie Mendoza [address] [facility] 3RD FLOOR DOOR 1 [place] [address] documented as of this encounter Procedures Procedure Name Priority Date/Time Associated Diagnosis Comments DERMATOPATHOLOGY Routine 06/12/2023 12:0 0 AM CDT documented in this encounter Results * DERMATOPATHOLOGY (06/12/2023 12:00 AM CDT) Case Report Dermatopathology Report Case: [id number] Authorizing Provider: Jaxon Anaya MD Collected: 06/12/2023 12:00 AM Ordering Location: [facility] DermPath Lab Received: 06/13/2023 01:28 PM [...] specimen consists of a shave biopsy measuring 48n71w0 mm. Jar 0. 3 3:42 PM CDT [...] determined by the Dermatopathology Laboratory at [facility], directed by Dr. Georgina Young. These tests need not be, and therefore are not, approved by the [place] Food and Drug Administration. The tests are used for clinical purposes. Billing Codes Specimen Charges Stain Charges 24257 1 41340 1 3 3:42 PM CDT DERMATOPATHOLOGY LABORATORY Embedded Images 3 3:42 PM CDT DERMATOPATHOLOGY LABORATORY Pathology/Cytolog y TISSUE SPECIMEN FROM SKIN / Unknown 06/12/2023 06/13/2023 1:28 PM CDT Jaxon Anaya MD LAB - PATHOLOGY/CYTOLOGY ORD ERABLES Final Result DERMATOPATHOLOGY LABORATORY [facility] Department of Dermatology [address], 3rd Floor [address] [phone] documented in this encounter Visit Diagnoses Not on filedocumented in this encounter Care Teams Chiseler Head Relationship Specialty Start Date End Date Demond Stark MD [address] [place] [address] PCP - General 10/03/15 documented as of this encounter
--- OUTSIDE RECORDS SUMMARY | 2025-04-18 16:05 | XMS_ITS | Encounter Summary ---
Author Organization [facility] Address [address] [place] [address] Care Team Providers Care Bulk Station Agent Name Role Phone Unavailable Primary Care Provider Unavailabl e Encounter Details Date Type Department Care Team (Late st Contact Info) Description 10/10/2023 Lab Requisition [facility] Laboratory Services [address] [place] [address] [place] [address] [place] [address] Social History Tobacco Use Types Packs/Day Years Used Date Smoking Tobacco: Never Assessed Sex and Gender Information Value Date Recorded Sex Assigned at Not on file Legal Sex Male 9:18 AM VP [employer]ODUCTS [employer]ING Gender Identity Not on file Sexual Orientation Not on file documented as of this encounter Plan of Treatment Not on file documented as of this encounter Procedures Procedure Name Priority Date/Time Associated Diagnosis Comments CBC WITH DIFFERENTIAL Routine 10/10/2023 3:30 AM VP [employer] PTT Routine 10/10/2023 3:30 AM VP [employer]ING PROTIME-INR Routine 10/10/2023 3:30 AM [employer] PREALBUMIN Routine 10/10/2023 3:30 AM VP [employer]ING COMPREHENSIVE METABOLIC PANEL Routine 10/10/2023 3:30 AM VP [employer] documented in this encounter Results * PTT (10/10/2023 3:30 AM VP [employer]ANN[employer]) PTT 23.4 23.1 - 37.1 seconds 10/10/2023 10:14 AM VP [employer]ING [facility] Blood Collection / Unknown 10/10/2023 3:30 AM VP [employer]ING 10/10/2023 9:51 AM VP [employer]ING Erik Chairez MD HEMATOLOGY ORDERABLES Final Resu lt [facility] CLIA# [id number] [place] [address] * (ABNORMAL) PROTIME-INR (10/10/2023 3:30 AM VP [employer]) PROTIME 15.0(H) 11.5 - 14.7 Seconds 10/10/2023 10:14 AM VP [employer] [facility] INR 1.2(H) 0.9 - 1.1 10/10/2023 10:14 AM VP [employer]ING [facility] Blood Collection / Unknown 10/10/2023 3:30 AM VP [employer] 10/10/2023 9:51 AM VP [employer] Erik Chairez MD HEMATOLOGY ORDERABLES Final Resu lt [facility] [place] [facility] CLIA# [id number] [place] [address] * PREALBUMIN (10/10/2023 3:30 AM VP [employer]) PREALBUMIN 23 20 - 40 mg/dL 10/10/2023 2:24 PM VP [employer]ING [facility] LABORATORY [facility] Blood Collection / Unknown 10/10/2023 3:30 AM VP [employer]ING 10/10/2023 9:51 AM VP [employer] Erik Chairez MD CHEMISTRY ORDERABLES Final Resul t [facility] [place] [facility] CLIA# [id number] [address] [place] [address] * (ABNORMAL) CBC WITH DIFFERENTIAL (10/10/2023 3:30 AM VP [employer]ANNING) [facility] WBC 10.1 4.5 - 10.5 K/uL 10/10/2023 11:06 AM [facility] RBC 3.85(L) 4.50 - 5.40 M/uL 10/10/2023 11:06 AM [facility] HEMOGLOBIN 11.6(L) 13.6 - 16.5 g/dL 10/10/2023 11:06 AM [facility] [place] [facility] HEMATOCRIT 36.6(L) 40.0 - 48.0 % 10/10/2023 11:06 AM [facility] [place] [facility] MCV 95.2 82.0 - 99.0 fL 10/10/2023 11:06 AM [facility] [place] [facility] MCH 30.1 27.8 - 34.5 pg 10/10/2023 11:06 AM [facility] [place] [facility] MCHC 31.6(L) 32.5 - 35.5 g/dL 10/10/2023 11:06 AM [facility] [place] [facility] RDW 19.2(H) 11.5 - 14.5 % 10/10/2023 11:06 AM [facility] [place] [facility] PLATELETS 250 160 - 420 K/uL 10/10/2023 11:06 AM [facility] [place] [facility] MPV 9.8 8.7 - 12.7 fL 10/10/2023 11:06 AM [facility] [place] [facility] NEUTROPHILS 72 % 10/10/2023 11:06 AM [facility] [place] [facility] LYMPHOCYTES 15 % 10/10/2023 11:06 AM [employer] [facility] MONOCYTES 7 % 10/10/2023 11:06 AM [employer] [facility] EOSINOPHILS 5 % 10/10/2023 11:06 AM VP [employer] [facility] BASOPHILS 0 % 10/10/2023 11:06 AM [facility] LABORATORY [facility] NEUTROPHIL ABSOLUTE 7.20(H) 1.90 - 7.00 K/uL 10/10/2023 11:06 AM [facility] [place] [facility] LYMPHOCYTE ABSOLUTE 1.50 0.70 - 4.50 K/uL 10/10/2023 11:06 AM VP [employer] [facility] MONOCYTE ABSOLUTE 0.70 0.10 - 1.30 K/uL 10/10/2023 11:06 AM VP [employer] [facility] LABORAT[facility] EOSINOPHIL ABSOLUTE 0.50 0.00 - 0.70 K/uL 10/10/2023 11:06 AM VP [employer]ING [facility] BASOPHILS ABSOLUTE 0.00 0.00 - 0.20 K/uL 10/10/2023 11:06 AM VP [employer] [facility] [place] [facility] Blood Collection / Unknown 10/10/2023 3:30 AM VP [employer] 10/10/2023 9:51 AM VP [employer] us Erik Chairez MD HEMATOLOGY ORDERABLES Final Resu lt [facility] CLIA# [id number] [place] [address] * (ABNORMAL) COMPREHENSIVE METABOLIC PANEL (10/10/2023 3:30 AM VP [employer]) SODIUM 142 136 - 145 mmol/L 10/10/2023 10:49 AM [facility] [place] [facility] POTASSIUM 4.1 3.4 - 5.1 mmol/L 10/10/2023 10:49 AM [facility] [place] [facility] CHLORIDE 104 98 - 107 mmol/L 10/10/2023 10:49 AM [facility] [place] [facility] CO2 23 22 - 29 mmol/L 10/10/2023 10:49 AM [facility] [place] [facility] CALCIUM 9.4 8.6 - 10.4 mg/dL 10/10/2023 10:49 AM [facility] [place] [facility] BUN 34(H) 6 - 20 mg/dL 10/10/2023 10:49 AM [facility] [place] [facility] CREATININE 1.24(H) 0.67 - 1.17 mg/dL 10/10/2023 10:49 AM [facility] LABORATORY [facility] Comment:The GFR result is no t clinically significant on patients <18 or >70 years of age. GLUCOSE 91 74 - 99 mg/dL 10/10/2023 10:49 AM [facility] TOTAL PROTEIN 7.4 6.3 - 8.7 g/dL 10/10/2023 10:49 AM [facility] ALBUMIN 3.6 3.5 - 5.2 g/dL 10/10/2023 10:49 AM [facility] BILIRUBIN TOTAL 0.6 0.2 - 1.1 mg/dL 10/10/2023 10:49 AM [facility] ALKALINE PHOSPHATASE 84 40 - 150 U/L 10/10/2023 10:49 AM [facility] AST 15 0 - 41 U/L 10/10/2023 10:49 AM [facility] ALT 13 0 - 41 U/L 10/10/2023 10:49 AM [facility] GFR 58 mL/min/1.7 3 sq meter 10/10/2023 10:49 AM [facility] Comment:eGFR calculated with 2020 CKD-EPI equation. Vegetarian diet, extremely high or low muscle mass, and may affect results. Cystatin C with Glomerular Filtration Rate is a suitable alternative for these patients. ANION GAP 15 8 - 16 mmol/L 10/10/2023 10:49 AM [facility] Blood Collection / Unknown 10/10/2023 3:30 AM VP [employer] 10/10/2023 9:51 AM VP [employer] us Erik Chairez MD CHEMISTRY ORDERABLES Final Resul t [facility] CLIA# [id number] [address] [place] [address] documented in this encounter Visit Diagnoses Not on filedocumented in this encounter Additional Health Concerns Infection Onset Date Last Indicated Resolved Time CRE-CP Comment:10/09/23 Klebsiella pneumoniae, Sputum 10/09/2023 10/09/2023 05/28/2024 2:37 PM C DT Multi Drug Resistant Organis m (MDRO) Comment:10/09/23 Klebsiella pneumoniae, CRE-CP organism, Sputum 10/09/2023 10/09/2023 FEEDER TENDER-CP Comment:10/09/23 Klebsiella pneumoniae, Sputum 10/09/2023 05/28/2024 documented as of this encounter
--- OUTSIDE RECORDS SUMMARY | 2025-04-18 16:05 | XMS_ITS | Clinical Summary ---
Author Organization [facility] Facility Address [address] [place] [address] Care Team Providers Care Lay Up Operator Name Role Phone Demond Stakr MD Primary Care Provider [phone] Encounters Date Type Department Care Team Description 04/07/2025 Documentation Only [facility] Alan. [address] [facility] [address] [place] [address] Raúl Ross MD 03/31/2025 Orders Only [facility] Alan. [address] [facility] [address] Rula [address] MA Hypertension (Primary Dx); Long-term drug therapy 03/10/2025 Documentation Only [facility] Alan. [address] [facility] [place] [address] Raúl Ross MD 03/02/2025 Orders Only [facility] Alan. [address] [facility] [address] [place] [phone] Rula [address] MA Renal insufficiency (Primary Dx); Hypertension; Other proteinuria 03/02/2025 Orders Only [facility] Alan. [address] [facility] [place] [phone] Rula [address] MA Renal insufficiency (Primary Dx); [...] Vaccine (#1) 2025 07/24/2010, 2009 Care Teams Lay Up Operator Relationship Specialty Start Date End Date Demond Stark MD [address] [address] PCP - General Family Medicine 06/04/24
--- OUTSIDE RECORDS SUMMARY | 2025-04-18 16:05 | XMS_ITS | Clinical Summary ---
Author Organization [facility] Address [address] [facility] [place] [address] Care Team Providers Care Procedure Rn Name Role Phone Demond Stark MD Primary Care Provider [phone] Source Comments [facility],non-owned Affiliates and Associated Physician Practices is amultiple site organization consisting of ambulatory clinics and hospital sitesin [place], [place], [place] and [place]. This disclosure is being madepursuant to the Care Everywhere program and may not contain all information available regarding this patient. Last updated 18.[facility] Allergies Active Allergy Reactions Criticality Noted Date [...] 07/20/2013 Overview (01/01/2025): Hypertension Coronary arteriosclerosis in [place] artery 12/20 Overview (01/01/2025): IRENE MICHAELCL NGOC VSSL 2010: Non STEMI and CABG x3 (HOBSON to the LAD, sequential RA to OM and D1) History of coronary artery bypass surgery 2009 Overview (01/01/2025): AORTOCORONARY BYPASS Encounters Date Type Department Care Team Description 02/05/2025 8:30 AM CDT Office Visit [facility]ician [facility] - GI [address] [facility] [place] [address] Callie Mendoza DO Zenker's diverticulum (Primary Dx); [...] and heating? Not hard at all 12/25/2024 [facility] Occupat ional [facility] - Occupational Stress [...] any time in the past 12 m [facility], were you homeless or living in a [facility]p (including now)? 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 Male 5:43 PM RETAIL BUYER Gender Identity Not on file Sexual Orientation [...] Info) Description 04/29/2025 10:00 AM CDT Appointment [facility] DIAGNOSTIC RAD [address] [place] [address] Callie Mendoza DO [address] [facility] [address] [place] [phone] 04/29/2025 1:00 PM CDT Office Visit [facility] Neurology [address] [place] [address], [place] [address] Arlen Syedciara, LEGAL BILLING CLERK-SOCIAL WORK FACULTY MEMBER [address] [facility] 1L [place] [phone] 02/04/2026 9:00 AM CDT Office Visit [facility] - GI [address] [place] [address], [place] [phone] Callie Mendoza DO [address] [facility] [address]RD FLOOR DO[address] 1 [place] [address] Health Maintenance Due Date Last Done Comments [...] supplements as ordered Collaborate with the clinical pecan gatherer Oral care Use soft toothbrushes Keep hydrated Insurance MEDICARE [facility] MEDICARE Advance Directives * Full Code (Latest Code Status on File) Date Activated Date Inactivated Comments 12/22/2024 4:39 PM 12/25/2024 7:01 PM Care Teams Procedure Rn Relationship Specialty Start Date End Date Demond Stark MD [address] [place] [phone] PCP - General 10/03/15
--- OUTSIDE RECORDS SUMMARY | 2025-04-18 16:05 | XMS_ITS | Encounter Summary ---
Author Organization [facility] Address [address] [facility] [address] [place] [address] Care Team Providers Care Welding Machine Operator/Tender Name Role Phone Demond Stark MD Primary Care Provider [phone] Encounter Details Date Type Department Care Team (Late st Contact Info) Description 10/16/2016 Orders Only [facility] ProviderTaylor MD [address] [place], [place] [id number] Social History Tobacco Use Types Packs/Day Years Used Date Smoking Tobacco: Former Cigarettes Q uit: 09/23/1969 Alcohol Use Standard Drinks/Week Comments Yes 0 (1 standard drink = 0.6 oz pur e alcohol) Sex and Gender Information Value Date Recorded Sex Assigned at Not on file Legal Sex Male 8:49 AM LICENSED LIFE AND HEALTH AGENT Gender Identity Not on file Sexual Orientation [...] on filedocumented in this encounter Care Teams Welding Machine Operator/Tender Relationship Specialty Start Date End Date Demond Stark MD PCP - General 07/23/11 documented as of this encounter
--- OUTSIDE RECORDS SUMMARY | 2025-04-18 16:05 | XMS_ITS | Encounter Summary ---
Author Organization [employer] Address [address] [place] [address] Care Team Providers Care Forming Roll Operator Heavy Duty Name Role Phone Unavailable Primary Care Provider Unavailabl e Encounter Details Date Type Department Care Team (Late st Contact Info) Description 10/10/2023 Lab Requisition [facility] Laboratory Services [address] [place] [address] [place] [address] [place] [address] Social History Tobacco Use Types Packs/Day Years Used Date Smoking Tobacco: Never Assessed Sex and Gender Information Value Date Recorded Sex Assigned at Not on file Legal Sex Male 9:18 AM DIETETIC TECHNICIAN Gender Identity Not on file Sexual Orientation Not on file documented as of this encounter Plan of Treatment Not on file documented as of this encounter Procedures Procedure Name Priority Date/Time Associated Diagnosis Comments CARBAPENEM RESISTANT ORGANISM Routine 10/09/2023 9:30 PM DIETETIC TECHNICIAN SPUTUM CULTURE WITH GRAM STAIN Routine 10/09/2023 9:30 PM DIETETIC TECHNICIAN documented in this encounter Results * (ABNORMAL) CARBAPENEM RESISTANT ORGANISM (10/09/2023 9:30 PM DIETETIC TECHNICIAN) ORGANISM TESTED Klebsiella pneumoniae 10/12/2023 4:25 PM DIETETIC TECHNICIAN [facility] Carbapenem Resistance Gene Detected(A) Not Detected 10/12/2023 4:25 PM DIETETIC TECHNICIAN [facility] KPC (carbapenem-re sistance gene) by PCR DETECTED(A) Not Detected 10/12/2023 4:25 PM DIETETIC TECHNICIAN [facility] Sputum Collection / Unknown 10/09/2023 9:30 PM DIETETIC TECHNICIAN 10/10/2023 9:54 AM DIETETIC TECHNICIAN [facility] - 10/12/2023 4:25 PM DIETETIC TECHNICIAN This isolate is a carbapenem-resistant Organism (VOLUNTEER FIREFIGHTER) AND is a carbapenamase-promos executive producer. If inpatient, place patient in Enhanced Contact Isolation. The [employer] Xpert Carba-R PCR assay detects the presence of KPC, NDM, VIM, OXA- 48, and IMP gene sequences that induce carbapenemase production in gram negative bacteria. This test was performed using an FDA approved screening methodology. Erik Chairez MD MICROBIOLOGY - GENERAL ORDERABLE S Final Result [facility]# [id number] [address] [place] [address] * (ABNORMAL) SPUTUM CULTURE WITH GRAM STAIN (10/09/2023 9:30 PM DIETETIC TECHNICIAN) CULTURE KLEBSIELLA PNEUMONIAE(A) LUCINA MCG/ML 10/17/2023 10:47 AM DIETETIC TECHNICIAN [facility] [employer] Comment: This isolate is a Carbapenem-Resistant Organism AND is a carbapenemase promos executive producer (VOLUNTEER FIREFIGHTER-CP). If inpatient, place patient in Enhanced Contact Isolation. Multiple drug resistant organism (MDRO). CULTURE Absent Normal Shahrzad LUCINA MCG/ML 10/17/2023 10:47 AM [facility] [employer] GRAM STAIN Non diagnostic pattern LUCINA MCG/ML 10/17/2023 10:47 AM [facility] GRAM STAIN No WBC observed 10/17/2023 10:47 AM [facility] [employer] Sputum Collection / Unknown 10/09/2023 9:30 PM DIETETIC TECHNICIAN 10/10/2023 9:54 AM DIETETIC TECHNICIAN [facility] - 10/17/2023 10:47 AM DIETETIC TECHNICIAN Results called to Kelly Suarez RN, Rosalie [...] Edited Result - Final Performing Organization Address City/State/[facility] Co de Phone Number [facility]# [id number] [address] [place] [address] documented in this encounter Visit Diagnoses Not on filedocumented in this encounter Additional Health Concerns Infection Onset Date Last Indicated Resolved Time CRE-CP Comment:10/09/23 Klebsiella pneumoniae, Sputum 10/09/2023 10/09/2023 05/28/2024 2:37 PM C DT Multi Drug Resistant Organis m (MDRO) Comment:10/09/23 Klebsiella pneumoniae, CRE-CP organism, Sputum 10/09/2023 10/09/2023 VOLUNTEER FIREFIGHTER-CP Comment:10/09/23 Klebsiella pneumoniae, Sputum 10/09/2023 05/28/2024 documented as of this encounter
--- OUTSIDE RECORDS SUMMARY | 2025-04-18 16:06 | XMS_ITS | Referral Summary ---
Author Organization [facility] Address [address] [place] [address] Care Team Providers Care Space And Missile Defense Operations Name Role Phone Demond Stark MD Primary Care Provider Encounters Date Type Department Care Team Description 03/16/2025 Orders Only [facility] Cardiology [address] [facility] [address] [place] [phone] ProviderTaylor MD 03/16/2025 2:30 PM CDT Office Visit [facility] Cardiology [address] [facility] [address] [place] [phone] Mando Luna MD Persistent atrial fibrillation (HCC) (Primary Dx); Coronary arteriosclerosis in qawalangin artery; Chronic anticoagulation; Nonrheumatic aortic (valve) stenosis; Cardiomyopathy, unspecified type (HCC) 03/01/2025 Telephone [facility] Cardiology [address] [place] [address] [address] [place] [phone] Mando Luna MD 01/19/2025 Telephone [facility] Cardiology [address] [facility] [address] [place] [phone] Mando Luna MD from Last 3 Months Allergies Active Allergy Reactions Criticality Noted Date Comments Diphenhydramine Hallucinations Medium 11/27/2023 Was not able to sleep and made him more anxious Lisinopril Cough Low Reaction: Cough, Pravastatin Muscle pain Medium Reaction: Muscular Pain, Quetiapine Other (See comments) Low 06/05/2024 Hallucinations, insomnia Simvastatin Muscle pain Medium Reaction: Muscular Pain, Gemzqyc-Czh-Ojw Reductase Inhibitors Muscle pain,Other (See comments) Medium 10/03/2015 Pt reports leg weakness/heavine ss when taking zocor. Medications levothyroxine (SYNTHROID) 112 mcg tablet Take 1 tablet (112 mcg total) by mouth forms examiner before breakfast Active aspirin 81 mg tablet [...] (COZAAR) 50 mg tabletIndications:Co ronary arteriosclerosis in qawalangin artery,Cardiomyopath y, unspecified type (HCC) Take 1 tablet (50 mg total) by mouth daily 90 tablet 3 03/16/20 25 026 Active Active Problems Problem Noted Date Diagnosed Date Cardiomyopathy 03/16/2025 Nonrheumatic aortic (valve) stenosis 03/16/2025 Dysfunction of right eustachian tube 08/31/2024 Assessment & Plan (10/05/2024 10:54 AM FREEZING MACHINE OPERATOR): Avoid ear cleaning techniques Avoid water to ears Follow up in 9 months for right ear tube check, earlier with ear drainage Assessment & Plan (08/31/2024 11:40 AM FREEZING MACHINE OPERATOR): Right myringotomy with T-tube placement Risks and [...] 07/09/2024 Assessment & Plan (08/31/2024 11:39 AM FREEZING MACHINE OPERATOR): Right myringotomy with T-tube placement Risks and [...] 08/07/2017 Assessment & Plan (08/07/2017 6:01 PM FREEZING MACHINE OPERATOR): Has had elevated LFTs and a fatty liver. Bradycardia 08/07/2017 Assessment & Plan (08/07/2017 5:58 PM FREEZING MACHINE OPERATOR): Asymptomatic bradycardia, on low-dose metoprolol which may eventually need to be reduced or discontinued. Traumatic subdural hematoma of neuraxis 10/15/19 17 Overview (12/28/2016): Traumatic subdural hematoma without loss of consciousness, sequela Statin intolerance 10/15/2016 Overview (12/28/2016): Statin intolerance Essential hypertension 07/20/2013 Overview (12/28/2016): Hypertension Assessment & Plan (08/07/2017 5:57 PM FREEZING MACHINE OPERATOR): Hypertension is not under good control; reviewing [...] HYPERLIPIDEMIA Assessment & Plan (08/07/2017 6:03 PM FREEZING MACHINE OPERATOR): Has refued further attempts at statin therapy. History of coronary artery bypass surgery 2009 Overview (12/26/2016): AORTOCORONARY BYPASS Coronary arteriosclerosis in qawalangin artery 12/20 Overview (08/07/2017): CRNRY ATHRSCL NATVE VSSL 2009: Non STEMI and CABG x3 (HOBSON to the LAD, sequential RA to OM and D1) Assessment & Plan (08/07/2017 6:00 PM FREEZING MACHINE OPERATOR): 2009: Non STEMI and CABG x3 (HOBSON [...] 03/04/2018 Assessment & Plan (08/07/2017 5:58 PM FREEZING MACHINE OPERATOR): Patient is going to have knee surgery [...] on file Legal Sex Male 8:49 AM FREEZING MACHINE OPERATOR Gender Identity Not on file Sexual Orientation Not on file Last Filed Vital Signs Vital Sign Reading Time Taken Comments Blood Pressure 138/70 03/16/2025 2:40 PM CDT Pulse 88 03/16/2025 2:40 PM CDT Temperature 36.3 C (97.4 F) 09/22/2024 1:04 PM FREEZING MACHINE OPERATOR Respiratory Rate 18 09/22/2024 1:04 PM FREEZING MACHINE OPERATOR Oxygen Saturation 97% 03/16/2025 2:40 PM CDT Inhaled Oxygen Concentration - - Weight 97.1 kg (214 lb) 03/16/2025 2:40 PM CDT Height 185.4 cm (6' 1) 03/16/2025 2:40 PM CDT Body Mass Index 28.23 03/16/2025 2:40 PM CDT Plan of Treatment Not on file Medical Devices Implanted Type Area Doctor Of Nursing Practice Device Identifier Shelf Expiration Date Model / Serial / Lot [employer] 1.32mm 4.8mm Modify Ear T Tube Ventilation Ultrasil Sterile Blue [id number] - [id number] Implanted:Qty: 1 on 09/22/2024 by Laura Oakes DO at [facility] Right: Ear [employer] 07/13/2034 [id number] / / [id number] Insurance MEDICARE MEDICARE [facility] MEDICARE SUPPLEMENT Care Teams Space And Missile Defense Operations Relationship Specialty Start Date End Date Demond Stark MD PCP - General 07/23/11
--- OUTSIDE RECORDS SUMMARY | 2025-04-18 16:06 | XMS_ITS | Encounter Summary ---
Author Organization [facility] Address [address] [place] [address] Care Team Providers Care Nurse College Name Role Phone Unavailable Primary Care Provider Unavailabl e Encounter Details Date Type Department Care Team (Late st Contact Info) Description 10/13/2023 Lab Requisition [facility] Laboratory Services [address] [place] [address] [place] [address] [place] [address] Social History Tobacco Use Types Packs/Day Years Used Date Smoking Tobacco: Never Assessed Sex and Gender Information Value Date Recorded Sex Assigned at Not on file Legal Sex Male 9:18 AM FLUX CORE WELDER Gender Identity Not on file Sexual Orientation Not on file documented as of this encounter Plan of Treatment Not on file documented as of this encounter Procedures Procedure Name Priority Date/Time Associated Diagnosis Comments MAGNESIUM LEVEL Routine 10/13/2023 4:00 AM FLUX CORE WELDER RENAL FUNCTION PANEL Routine 10/13/2023 4:00 AM FLUX CORE WELDER documented in this encounter Results * MAGNESIUM LEVEL (10/13/2023 4:00 AM FLUX CORE WELDER) MAGNESIUM 2.3 1.6 - 2.6 mg/dL 10/13/2023 5:59 AM FLUX CORE WELDER [facility] [employer] Blood Collection / Unknown 10/13/2023 4:00 AM FLUX CORE WELDER 10/13/2023 5:20 AM FLUX CORE WELDER us Erik Chairez MD CHEMISTRY ORDERABLES Final Resul t [facility] [id number] [address] [place] [address] * (ABNORMAL) RENAL FUNCTION PANEL (10/13/2023 4:00 AM FLUX CORE WELDER) SODIUM 138 136 - 145 mmol/L 10/13/2023 5:58 AM [facility] POTASSIUM 4.5 3.4 - 5.1 mmol/L 10/13/2023 5:58 AM [facility] CHLORIDE 100 98 - 107 mmol/L 10/13/2023 5:58 AM [facility] CO2 25 22 - 29 mmol/L 10/13/2023 5:58 AM [facility] CALCIUM 9.6 8.6 - 10.4 mg/dL 10/13/2023 5:58 AM [facility] BUN 39(H) 6 - 20 mg/dL 10/13/2023 5:58 AM [facility] CREATININE 1.09 0.67 - 1.17 mg/dL 10/13/2023 5:58 AM [facility] Comment:The GFR result is no t clinically significant on patients <18 or >70 years of age. GLUCOSE 100(H) 74 - 99 mg/dL 10/13/2023 5:58 AM [facility] ALBUMIN 3.5 3.5 - 5.2 g/dL 10/13/2023 5:58 AM [facility] PHOSPHORUS 4.8(H) 2.5 - 4.5 mg/dL 10/13/2023 5:58 AM [facility] GFR >60 mL/min/1.7 3 sq meter 10/13/2023 5:58 AM [facility] Comment:eGFR calculated with 2020 CKD-EPI equation. Vegetarian diet, extremely high or low muscle mass, and may affect results. Cystatin C with Glomerular Filtration Rate is a suitable alternative for these patients. ANION GAP 13 8 - 16 mmol/L 10/13/2023 5:58 AM [facility] Blood Collection / Unknown 10/13/2023 4:00 AM FLUX CORE WELDER 10/13/2023 5:20 AM FLUX CORE WELDER Erik Chairez MD CHEMISTRY ORDERABLES Final Resul t [facility] SERVICES [facility] CLIA# [id number] [place] [address] documented in this encounter Visit Diagnoses Not on filedocumented in this encounter Additional Health Concerns Infection Onset Date Last Indicated Resolved Time CRE-CP Comment:10/09/23 Klebsiella pneumoniae, Sputum 10/09/2023 10/09/2023 05/28/2024 2:37 PM C DT Multi Drug Resistant Organis m (MDRO) Comment:10/09/23 Klebsiella pneumoniae, CRE-CP organism, Sputum 10/09/2023 10/09/2023 CONTINUOUS CHURN BUTTERMAKER-CP Comment:10/09/23 Klebsiella pneumoniae, Sputum 10/09/2023 05/28/2024 documented as of this encounter
--- OUTSIDE RECORDS SUMMARY | 2025-04-18 16:06 | XMS_ITS | Encounter Summary ---
Author Organization [facility] Address [address] [place] [address] Care Team Providers Care Maintenance Porter Name Role Phone Unavailable Primary Care Provider Unavailabl e Encounter Details Date Type Department Care Team (Late st Contact Info) Description 11/01/2023 Lab Requisition [facility] Laboratory Services [address] [place] [address] [place] [address] [place] [address] Social History Tobacco Use Types Packs/Day Years Used Date Smoking Tobacco: Never Assessed Sex and Gender Information Value Date Recorded Sex Assigned at Not on file Legal Sex Male 9:18 AM TECHNICAL SUPPORT CONSULTANT Gender Identity Not on file Sexual Orientation Not on file documented as of this encounter Plan of Treatment Not on file documented as of this encounter Procedures Procedure Name Priority Date/Time Associated Diagnosis Comments CBC WITH DIFFERENTIAL Routine 11/01/2023 4:20 AM TECHNICAL SUPPORT CONSULTANT BASIC METABOLIC PANEL Routine 11/01/2023 4:20 AM TECHNICAL SUPPORT CONSULTANT documented in this encounter Results * (ABNORMAL) CBC WITH DIFFERENTIAL (11/01/2023 4:20 AM TECHNICAL SUPPORT CONSULTANT) WBC 8.5 4.5 - 10.5 K/uL 11/01/2023 8:48 AM TECHNICAL SUPPORT CONSULTANT [facility] - [facility] RBC 3.87(L) 4.50 - 5.40 M/uL 11/01/2023 8:48 AM TECHNICAL SUPPORT CONSULTANT [facility] HEMOGLOBIN 11.2(L) 13.6 - 16.5 g/dL 11/01/2023 8:48 AM TECHNICAL SUPPORT CONSULTANT [facility] HEMATOCRIT 34.9(L) 40.0 - 48.0 % 11/01/2023 8:48 AM TECHNICAL SUPPORT CONSULTANT [facility]OR[facility] SERVICES [facility] MCV 90.3 82.0 - 99.0 fL 11/01/2023 8:48 AM TECHNICAL SUPPORT CONSULTANT [facility] - [facility] MCH 29.0 27.8 - 34.5 pg 11/01/2023 8:48 AM TECHNICAL SUPPORT CONSULTANT [facility] SERVICES [facility] MCHC 32.1(L) 32.5 - 35.5 g/dL 11/01/2023 8:48 AM TECHNICAL SUPPORT CONSULTANT [facility] SERVICES [facility] RDW 17.0(H) 11.5 - 14.5 % 11/01/2023 8:48 AM TECHNICAL SUPPORT CONSULTANT [facility] SERVICES [facility] PLATELETS 246 160 - 420 K/uL 11/01/2023 8:48 AM TECHNICAL SUPPORT CONSULTANT [facility] MPV 9.7 8.7 - 12.7 fL 11/01/2023 8:48 AM TECHNICAL SUPPORT CONSULTANT [facility] NEUTROPHILS 53 % 11/01/2023 8:48 AM TECHNICAL SUPPORT CONSULTANT [facility] LYMPHOCYTES 29 % 11/01/2023 8:48 AM TECHNICAL SUPPORT CONSULTANT [facility] MONOCYTES 7 % 11/01/2023 8:48 AM TECHNICAL SUPPORT CONSULTANT [facility] EOSINOPHILS 12 % 11/01/2023 8:48 AM TECHNICAL SUPPORT CONSULTANT [facility] BASOPHILS 1 % 11/01/2023 8:48 AM TECHNICAL SUPPORT CONSULTANT [facility]ORAT[facility] SERVICES [facility] NEUTROPHIL ABSOLUTE 4.50 1.90 - 7.00 K/uL 11/01/2023 8:48 AM TECHNICAL SUPPORT CONSULTANT [facility] LABORATORY SERVICES [facility] LYMPHOCYTE ABSOLUTE 2.40 0.70 - 4.50 K/uL 11/01/2023 8:48 AM TECHNICAL SUPPORT CONSULTANT [facility] MONOCYTE ABSOLUTE 0.60 0.10 - 1.30 K/uL 11/01/2023 8:48 AM TECHNICAL SUPPORT CONSULTANT [facility]OR[facility] SERVICES [facility] EOSINOPHIL ABSOLUTE 1.00(H) 0.00 - 0.70 K/uL 11/01/2023 8:48 AM TECHNICAL SUPPORT CONSULTANT [facility] LABORATORY SERVICES [facility] BASOPHILS ABSOLUTE 0.00 0.00 - 0.20 K/uL 11/01/2023 8:48 AM [facility] Blood Collection / Unknown 11/01/2023 4:20 AM TECHNICAL SUPPORT CONSULTANT 11/01/2023 7:57 AM TECHNICAL SUPPORT CONSULTANT Erik Chairez MD HEMATOLOGY ORDERABLES Final Resu lt [facility] CLIA# [id number] [address] [place] [address] * (ABNORMAL) BASIC METABOLIC PANEL (11/01/2023 4:20 AM TECHNICAL SUPPORT CONSULTANT) SODIUM 139 136 - 145 mmol/L 11/01/2023 9:12 AM [facility] POTASSIUM 3.7 3.4 - 5.1 mmol/L 11/01/2023 9:12 AM [facility] CHLORIDE 100 98 - 107 mmol/L 11/01/2023 9:12 AM [facility] CO2 27 22 - 29 mmol/L 11/01/2023 9:12 AM [facility] CALCIUM 9.8 8.6 - 10.4 mg/dL 11/01/2023 9:12 AM [facility] BUN 41(H) 6 - 20 mg/dL 11/01/2023 9:12 AM [facility] CREATININE 0.93 0.67 - 1.17 mg/dL 11/01/2023 9:12 AM [facility] Comment:The GFR result is no t clinically significant on patients <18 or >70 years of age. GLUCOSE 109(H) 74 - 99 mg/dL 11/01/2023 9:12 AM [facility] GFR >60 mL/min/1.7 3 sq meter 11/01/2023 9:12 AM [facility] Comment:eGFR calculated with 2020 CKD-EPI equation. Vegetarian diet, extremely high or low muscle mass, and may affect results. Cystatin C with Glomerular Filtration Rate is a suitable alternative for these patients. ANION GAP 12 8 - 16 mmol/L 11/01/2023 9:12 AM TECHNICAL SUPPORT CONSULTANT [facility] SERVICES [facility] Blood Collection / Unknown 11/01/2023 4:20 AM TECHNICAL SUPPORT CONSULTANT 11/01/2023 7:57 AM TECHNICAL SUPPORT CONSULTANT Erik Chairez MD CHEMISTRY ORDERABLES Final Resul t [facility] SERVICES [facility] CLIA# [id number] [address] [place] [address] documented in this encounter Visit Diagnoses Not on filedocumented in this encounter Additional Health Concerns Infection Onset Date Last Indicated Resolved Time 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
--- OUTSIDE RECORDS SUMMARY | 2025-04-18 16:06 | XMS_ITS | Encounter Summary ---
Author Organization [facility] Address [address] [place] [address] Care Team Providers Care Clinical Nursing Assistant Name Role Phone Unavailable Primary Care Provider Unavailabl e Encounter Details Date Type Department Care Team (Late st Contact Info) Description 10/11/2023 Lab Requisition [facility] Laboratory Services [address] [place] [address] [place] [address] [place] [address] Social History Tobacco Use Types Packs/Day Years Used Date Smoking Tobacco: Never Assessed Sex and Gender Information Value Date Recorded Sex Assigned at Not on file Legal Sex Male 9:18 AM LENGTH CONTROL TESTER Gender Identity Not on file Sexual Orientation Not on file documented as of this encounter Plan of Treatment Not on file documented as of this encounter Procedures Procedure Name Priority Date/Time Associated Diagnosis Comments CBC WITH DIFFERENTIAL Routine 10/11/2023 3:30 AM LENGTH CONTROL TESTER TRIGLYCERIDE Routine 10/11/2023 3:30 AM LENGTH CONTROL TESTER MAGNESIUM LEVEL Routine 10/11/2023 3:30 AM LENGTH CONTROL TESTER RENAL FUNCTION PANEL Routine 10/11/2023 3:30 AM LENGTH CONTROL TESTER documented in this encounter Results * (ABNORMAL) TRIGLYCERIDE (10/11/2023 3:30 AM LENGTH CONTROL TESTER) TRIGLYCERIDE 192(H) <150 mg/dL 10/11/2023 6:28 AM LENGTH CONTROL TESTER [facility] LABORATORY SERVICES [facility] Blood 10/11/2023 3:30 AM LENGTH CONTROL TESTER 10/11/2023 5:43 AM LENGTH CONTROL TESTER Narrative [facility] [employer] [facility] - 10/11/2023 6:28 AM LENGTH CONTROL TESTER TRIGLYCERIDES mg/dL Normal < 150 Borderline High 150 - 199 High 200 - 499 Very High >= 500 Based on AHA/NCEP Guidelines. Erik Chairez MD CHEMISTRY ORDERABLES Final Resul t Performing Organization Address City/[facility]/ZIP Co de Phone Number [facility] CLIA# [id number] [place] [address] * MAGNESIUM LEVEL (10/11/2023 3:30 AM LENGTH CONTROL TESTER) MAGNESIUM 2.2 1.6 - 2.6 mg/dL 10/11/2023 6:28 AM [facility] Blood 10/11/2023 3:30 AM LENGTH CONTROL TESTER 10/11/2023 5:43 AM LENGTH CONTROL TESTER Erik Chairez MD CHEMISTRY ORDERABLES Final Resul t Performing Organization Address City/[facility]/ZIP Co de Phone Number [facility] CLIA# [id number] [place] [address] * (ABNORMAL) CBC WITH DIFFERENTIAL (10/11/2023 3:30 AM LENGTH CONTROL TESTER) WBC 8.8 4.5 - 10.5 K/uL 10/11/2023 6:05 AM [facility] [employer] [facility] RBC 3.43(L) 4.50 - 5.40 M/uL 10/11/2023 6:05 AM [facility] [employer] [facility] HEMOGLOBIN 10.5(L) 13.6 - 16.5 g/dL 10/11/2023 6:05 AM [facility] HEMATOCRIT 32.7(L) 40.0 - 48.0 % 10/11/2023 6:05 AM [facility] MCV 95.4 82.0 - 99.0 fL 10/11/2023 6:05 AM [facility] MCH 30.7 27.8 - 34.5 pg 10/11/2023 6:05 AM [facility] LABORATORY [facility] MCHC 32.2(L) 32.5 - 35.5 g/dL 10/11/2023 6:05 AM [facility] LABORATORY [facility] RDW 18.7(H) 11.5 - 14.5 % 10/11/2023 6:05 AM [facility] LABOR[facility] PLATELETS 218 160 - 420 K/uL 10/11/2023 6:05 AM [facility] LABOR[facility] MPV 9.3 8.7 - 12.7 fL 10/11/2023 6:05 AM LENGTH CONTROL TESTER [facility] LABORATORY SERVICES [facility] NEUTROPHILS 67 % 10/11/2023 6:05 AM LENGTH CONTROL TESTER [facility] LABORATORY SERVICES [facility] LYMPHOCYTES 18 % 10/11/2023 6:05 AM LENGTH CONTROL TESTER [facility] LABORATORY SERVICES [facility] MONOCYTES 7 % 10/11/2023 6:05 AM LENGTH CONTROL TESTER [facility] LABORATORY [facility] EOSINOPHILS 7 % 10/11/2023 6:05 AM [facility] LABORATORY [facility] BASOPHILS 1 % 10/11/2023 6:05 AM LENGTH CONTROL TESTER [facility] LABORATORY [facility] NEUTROPHIL ABSOLUTE 5.90 1.90 - 7.00 K/uL 10/11/2023 6:05 AM [facility] LABORATORY [facility] LYMPHOCYTE ABSOLUTE 1.60 0.70 - 4.50 K/uL 10/11/2023 6:05 AM [facility] LABORATORY [facility] MONOCYTE ABSOLUTE 0.60 0.10 - 1.30 K/uL 10/11/2023 6:05 AM [facility] LABOR[facility] EOSINOPHIL ABSOLUTE 0.60 0.00 - 0.70 K/uL 10/11/2023 6:05 AM LENGTH CONTROL TESTER [facility] LABORATORY [facility] BASOPHILS ABSOLUTE 0.10 0.00 - 0.20 K/uL 10/11/2023 6:05 AM [facility] LABORATORY [facility] Blood 10/11/2023 3:30 AM LENGTH CONTROL TESTER 10/11/2023 5:43 AM LENGTH CONTROL TESTER us Erik Chairez MD HEMATOLOGY ORDERABLES Final Resu lt [facility] CLIA# [id number] [address] [place] [address] * (ABNORMAL) RENAL FUNCTION PANEL (10/11/2023 3:30 AM LENGTH CONTROL TESTER) SODIUM 145 136 - 145 mmol/L 10/11/2023 6:28 AM [facility] [employer] [facility] POTASSIUM 4.0 3.4 - 5.1 mmol/L 10/11/2023 6:28 AM [facility] CHLORIDE 106 98 - 107 mmol/L 10/11/2023 6:[address] [facility] CO2 26 22 - 29 mmol/L 10/11/2023 6:28 AM [facility] CALCIUM 9.3 8.6 - 10.4 mg/dL 10/11/2023 6:28 AM [facility] BUN 38(H) 6 - 20 mg/dL 10/11/2023 6:28 AM [facility] CREATININE 1.38(H) 0.67 - 1.17 mg/dL 10/11/2023 6:28 AM [facility] Comment:The GFR result is no t clinically significant on patients <18 or >70 years of age. GLUCOSE 85 74 - 99 mg/dL 10/11/2023 6:28 AM [facility] ALBUMIN 3.4(L) 3.5 - 5.2 g/dL 10/11/2023 6:28 AM [facility] PHOSPHORUS 3.9 2.5 - 4.5 mg/dL 10/11/2023 6:28 AM [facility] GFR 51 mL/min/1.7 3 sq meter 10/11/2023 6:28 AM [facility] Comment:eGFR calculated with 2020 CKD-EPI equation. Vegetarian diet, extremely high or low muscle mass, and may affect results. Cystatin C with Glomerular Filtration Rate is a suitable alternative for these patients. ANION GAP 13 8 - 16 mmol/L 10/11/2023 6:28 AM LENGTH CONTROL TESTER [facility] LABORATORY [facility] Blood 10/11/2023 3:30 AM LENGTH CONTROL TESTER 10/11/2023 5:43 AM LENGTH CONTROL TESTER Erik Chairez MD CHEMISTRY ORDERABLES Final Resul t [facility] CLIA# [id number] [place] [address] documented in this encounter Visit Diagnoses Not on filedocumented in this encounter Additional Health Concerns Infection Onset Date Last Indicated Resolved Time 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
--- OUTSIDE RECORDS SUMMARY | 2025-04-18 16:06 | XMS_ITS | Encounter Summary ---
Author Organization [facility] Address [address] [place] [address] Care Team Providers Care Loin Puller Name Role Phone Unavailable Primary Care Provider Unavailabl e Encounter Details Date Type Department Care Team (Late st Contact Info) Description 10/14/2023 Lab Requisition [facility] Laboratory Services [address] [place] [address] [place] [address] [place] [address] Social History Tobacco Use Types Packs/Day Years Used Date Smoking Tobacco: Never Assessed Sex and Gender Information Value Date Recorded Sex Assigned at Not on file Legal Sex Male 9:18 AM PORTRAIT STUDIO PHOTOGRAPHER Gender Identity Not on file Sexual Orientation Not on file documented as of this encounter Plan of Treatment Not on file documented as of this encounter Procedures Procedure Name Priority Date/Time Associated Diagnosis Comments CBC WITH DIFFERENTIAL Routine 10/14/2023 2:35 AM PORTRAIT STUDIO PHOTOGRAPHER TRIGLYCERIDE Routine 10/14/2023 2:35 AM PORTRAIT STUDIO PHOTOGRAPHER PHOSPHORUS Routine 10/14/2023 2:35 AM PORTRAIT STUDIO PHOTOGRAPHER MAGNESIUM LEVEL Routine 10/14/2023 2:35 AM PORTRAIT STUDIO PHOTOGRAPHER COMPREHENSIVE METABOLIC PANEL Routine 10/14/2023 2:35 AM PORTRAIT STUDIO PHOTOGRAPHER documented in this encounter Results * (ABNORMAL) TRIGLYCERIDE (10/14/2023 2:35 AM PORTRAIT STUDIO PHOTOGRAPHER) TRIGLYCERIDE 161(H) <150 mg/dL 10/14/2023 8:26 AM PORTRAIT STUDIO PHOTOGRAPHER [facility] LABORATORY SERVICES [facility] Blood Collection / Unknown 10/14/2023 2:35 AM PORTRAIT STUDIO PHOTOGRAPHER 10/14/2023 7:22 AM PORTRAIT STUDIO PHOTOGRAPHER Narrative [facility] - 10/14/2023 8:26 AM PORTRAIT STUDIO PHOTOGRAPHER TRIGLYCERIDES mg/dL Normal < 150 Borderline High 150 - 199 High 200 - 499 Very High >= 500 Based on AHA/NCEP Guidelines. us Erik Chairez MD CHEMISTRY ORDERABLES Final Resul t Performing Organization Address City/[facility]/ZIP Co de Phone Number [facility] CLIA# [id number] [address] [place] [address] * PHOSPHORUS (10/14/2023 2:35 AM PORTRAIT STUDIO PHOTOGRAPHER) PHOSPHORUS 3.4 2.5 - 4.5 mg/dL 10/14/2023 8:26 AM PORTRAIT STUDIO PHOTOGRAPHER [facility] Blood Collection / Unknown 10/14/2023 2:35 AM PORTRAIT STUDIO PHOTOGRAPHER 10/14/2023 7:22 AM PORTRAIT STUDIO PHOTOGRAPHER us Erik Chairez MD CHEMISTRY ORDERABLES Final Resul t Performing Organization Address City/[facility] Co de Phone Number [facility] [id number] [place] [address] * MAGNESIUM LEVEL (10/14/2023 2:35 AM PORTRAIT STUDIO PHOTOGRAPHER) MAGNESIUM 2.5 1.6 - 2.6 mg/dL 10/14/2023 8:26 AM PORTRAIT STUDIO PHOTOGRAPHER [facility] [employer] [facility] Blood Collection / Unknown 10/14/2023 2:35 AM PORTRAIT STUDIO PHOTOGRAPHER 10/14/2023 7:22 AM PORTRAIT STUDIO PHOTOGRAPHER us Erik Chairez MD CHEMISTRY ORDERABLES Final Resul t Performing Organization Address City/[facility]/ZIP Co de Phone Number [facility] [id number] [place] [address] * (ABNORMAL) CBC WITH DIFFERENTIAL (10/14/2023 2:35 AM PORTRAIT STUDIO PHOTOGRAPHER) [facility] WBC 9.2 4.5 - 10.5 K/uL 10/14/2023 8:02 AM [facility] LABORATORY [facility] RBC 3.58(L) 4.50 - 5.40 M/uL 10/14/2023 8:02 AM [facility] HEMOGLOBIN 11.0(L) 13.6 - 16.5 g/dL 10/14/2023 8:02 AM [facility] LABORATORY [facility] HEMATOCRIT 33.5(L) 40.0 - 48.0 % 10/14/2023 8:02 AM [facility] LABORATORY [facility] MCV 93.6 82.0 - 99.0 fL 10/14/2023 8:02 AM [facility] LABORATORY [facility] MCH 30.6 27.8 - 34.5 pg 10/14/2023 8:02 AM [facility] [employer] [facility] MCHC 32.7 32.5 - 35.5 g/dL 10/14/2023 8:02 AM [facility] [employer] [facility] RDW 17.7(H) 11.5 - 14.5 % 10/14/2023 8:02 AM [facility] LABORATORY [facility] PLATELETS 214 160 - 420 K/uL 10/14/2023 8:02 AM [facility] [employer] [facility] MPV 9.2 8.7 - 12.7 fL 10/14/2023 8:02 AM [facility] [employer] [facility] NEUTROPHILS 58 % 10/14/2023 8:02 AM [facility] LABORATORY [facility] LYMPHOCYTES 24 % 10/14/2023 8:02 AM [facility] LABORATORY [facility] MONOCYTES 8 % 10/14/2023 8:02 AM PORTRAIT STUDIO PHOTOGRAPHER [facility] LABORATORY [facility] EOSINOPHILS 9 % 10/14/2023 8:02 AM [facility] LABORATORY [facility] BASOPHILS 0 % 10/14/2023 8:02 AM [facility] LABORATORY [facility] NEUTROPHIL ABSOLUTE 5.40 1.90 - 7.00 K/uL 10/14/2023 8:02 AM [facility] [employer] [facility] LYMPHOCYTE ABSOLUTE 2.20 0.70 - 4.50 K/uL 10/14/2023 8:02 AM [facility] LABORATORY [facility] MONOCYTE ABSOLUTE 0.70 0.10 - 1.30 K/uL 10/14/2023 8:02 AM [facility] EOSINOPHIL ABSOLUTE 0.90(H) 0.00 - 0.70 K/uL 10/14/2023 8:02 AM [facility] LABORATORY [facility] BASOPHILS ABSOLUTE 0.00 0.00 - 0.20 K/uL 10/14/2023 8:02 AM [facility] Blood Collection / Unknown 10/14/2023 2:35 AM PORTRAIT STUDIO PHOTOGRAPHER 10/14/2023 7:22 AM PORTRAIT STUDIO PHOTOGRAPHER Erik Chairez MD HEMATOLOGY ORDERABLES Final Resu lt [facility] CLIA# [id number] [place] [address] * (ABNORMAL) COMPREHENSIVE METABOLIC PANEL (10/14/2023 2:35 AM PORTRAIT STUDIO PHOTOGRAPHER) SODIUM 135(L) 136 - 145 mmol/L 10/14/2023 8:26 AM [facility] POTASSIUM 4.0 3.4 - 5.1 mmol/L 10/14/2023 8:26 AM [facility] CHLORIDE 97(L) 98 - 107 mmol/L 10/14/2023 8:26 AM [facility] CO2 24 22 - 29 mmol/L 10/14/2023 8:26 AM [facility] CALCIUM 9.5 8.6 - 10.4 mg/dL 10/14/2023 8:26 AM [facility] BUN 36(H) 6 - 20 mg/dL 10/14/2023 8:26 AM [facility] CREATININE 1.18(H) 0.67 - 1.17 mg/dL 10/14/2023 8:26 AM [facility] [employer] [facility] Comment:The GFR result is no t clinically significant on patients <18 or >70 years of age. GLUCOSE 84 74 - 99 mg/dL 10/14/2023 8:26 AM [facility] TOTAL PROTEIN 7.4 6.3 - 8.7 g/dL 10/14/2023 8:26 AM [facility] ALBUMIN 3.6 3.5 - 5.2 g/dL 10/14/2023 8:26 AM [facility] BILIRUBIN TOTAL 0.6 0.2 - 1.1 mg/dL 10/14/2023 8:26 AM [facility] ALKALINE PHOSPHATASE 99 40 - 150 U/L 10/14/2023 8:26 AM [facility] AST 22 0 - 41 U/L 10/14/2023 8:26 AM [facility] ALT 16 0 - 41 U/L 10/14/2023 8:26 AM [facility] GFR >60 mL/min/1.7 3 sq meter 10/14/2023 8:26 AM [facility] Comment:eGFR calculated with 2020 CKD-EPI equation. Vegetarian diet, extremely high or low muscle mass, and may affect results. Cystatin C with Glomerular Filtration Rate is a suitable alternative for these patients. 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
--- OUTSIDE RECORDS SUMMARY | 2025-04-18 16:06 | XMS_ITS | Encounter Summary ---
Author Organization [facility] Address [address] [place] [address] Care Team Providers Care Tanning Drum Operator Name Role Phone Unavailable Primary Care Provider Unavailabl e Encounter Details Date Type Department Care Team (Late st Contact Info) Description 10/12/[address] [facility] Laboratory Services [address] [place] [address] [place] [address] [place] [address] Social History Tobacco Use Types Packs/Day Years Used Date Smoking Tobacco: Never Assessed Sex and Gender Information Value Date Recorded Sex Assigned at Not on file Legal Sex Male 9:18 AM CONTRACT FORESTER Gender Identity Not on file Sexual Orientation Not on file documented as of this encounter Plan of Treatment Not on file documented as of this encounter Procedures Procedure Name Priority Date/Time Associated Diagnosis Comments MAGNESIUM LEVEL Routine 10/12/2023 4:00 AM CONTRACT FORESTER RENAL FUNCTION PANEL Routine 10/12/2023 4:00 AM CONTRACT FORESTER documented in this encounter Results * MAGNESIUM LEVEL (10/12/2023 4:00 AM CONTRACT FORESTER) MAGNESIUM 2.3 1.6 - 2.6 mg/dL 10/12/2023 6:02 AM CONTRACT FORESTER [facility] [employer] [facility] Blood Collection / Unknown 10/12/2023 4:00 AM CONTRACT FORESTER 10/12/2023 5:07 AM CONTRACT FORESTER us Erik Chairez MD CHEMISTRY ORDERABLES Final Resul t [id number] [place] [address] * (ABNORMAL) RENAL FUNCTION PANEL (10/12/2023 4:00 AM CONTRACT FORESTER) SODIUM 139 136 - 145 mmol/L 10/12/2023 6:02 AM [facility] POTASSIUM 4.2 3.4 - 5.1 mmol/L 10/12/2023 6:02 AM [facility] CHLORIDE 102 98 - 107 mmol/L 10/12/2023 6:02 AM [facility] CO2 24 22 - 29 mmol/L 10/12/2023 6:02 AM [facility] CALCIUM 9.5 8.6 - 10.4 mg/dL 10/12/2023 6:02 AM [facility] BUN 43(H) 6 - 20 mg/dL 10/12/2023 6:02 AM [facility] CREATININE 1.20(H) 0.67 - 1.17 mg/dL 10/12/2023 6:02 AM [facility] Comment:The GFR result is no t clinically significant on patients <18 or >70 years of age. GLUCOSE 94 74 - 99 mg/dL 10/12/2023 6:02 AM [facility] ALBUMIN 3.4(L) 3.5 - 5.2 g/dL 10/12/2023 6:02 AM [facility] PHOSPHORUS 4.2 2.5 - 4.5 mg/dL 10/12/2023 6:02 AM [facility] GFR 60 mL/min/1.7 3 sq meter 10/12/2023 6:02 AM [facility] Comment:eGFR calculated with 2020 CKD-EPI equation. Vegetarian diet, extremely high or low muscle mass, and may affect results. Cystatin C with Glomerular Filtration Rate is a suitable alternative for these patients. 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
--- OUTSIDE RECORDS SUMMARY | 2025-04-18 16:06 | XMS_ITS | Encounter Summary ---
Author Organization [facility] Address [address] [place] [address] Care Team Providers Care Qualitative Field Project Manager Name Role Phone Unavailable Primary Care Provider Unavailabl e Encounter Details Date Type Department Care Team (Late st Contact Info) Description 11/07/2023 Lab Requisition [facility] Laboratory Services [address] [place] [address] [place] [id number] [place] [address] Social History Tobacco Use Types Packs/Day Years Used Date Smoking Tobacco: Never Assessed Sex and Gender Information Value Date Recorded Sex Assigned at Not on file Legal Sex Male 9:18 AM CAUSTIC LOADER Gender Identity Not on file Sexual Orientation Not on file documented as of this encounter Plan of Treatment Not on file documented as of this encounter Procedures Procedure Name Priority Date/Time Associated Diagnosis Comments CBC WITH DIFFERENTIAL Routine 11/07/2023 4:30 AM CAUSTIC LOADER BASIC METABOLIC PANEL Routine 11/07/2023 4:30 AM CAUSTIC LOADER documented in this encounter Results * (ABNORMAL) CBC WITH DIFFERENTIAL (11/07/2023 4:30 AM CAUSTIC LOADER) WBC 9.4 4.5 - 10.5 K/uL 11/07/2023 8:10 AM CAUSTIC LOADER [facility] - [facility] RBC 4.06(L) 4.50 - 5.40 M/uL 11/07/2023 8:10 AM CAUSTIC LOADER [facility] HEMOGLOBIN 11.9(L) 13.6 - 16.5 g/dL 11/07/2023 8:10 AM CAUSTIC LOADER [facility] HEMATOCRIT 37.1(L) 40.0 - 48.0 % 11/07/2023 8:10 AM CAUSTIC LOADER [facility] SERVICES [facility] MCV 91.5 82.0 - 99.0 fL 11/07/2023 8:10 AM CAUSTIC LOADER [facility] - [facility] MCH 29.4 27.8 - 34.5 pg 11/07/2023 8:10 AM CAUSTIC LOADER [facility] SERVICES [facility] MCHC 32.1(L) 32.5 - 35.5 g/dL 11/07/2023 8:10 AM CAUSTIC LOADER [facility] SERVICES [facility] RDW 16.9(H) 11.5 - 14.5 % 11/07/2023 8:10 AM CAUSTIC LOADER [facility] SERVICES [facility] PLATELETS 270 160 - 420 K/uL 11/07/2023 8:10 AM CAUSTIC LOADER [facility] SERVICES [facility] MPV 10.0 8.7 - 12.7 fL 11/07/2023 8:10 AM CAUSTIC LOADER [facility] SERVICES [facility] NEUTROPHILS 61 % 11/07/2023 8:10 AM CAUSTIC LOADER [facility] LYMPHOCYTES 21 % 11/07/2023 8:10 AM CAUSTIC LOADER [facility] MONOCYTES 6 % 11/07/2023 8:10 AM CAUSTIC LOADER [facility] EOSINOPHILS 11 % 11/07/2023 8:10 AM CAUSTIC LOADER [facility] BASOPHILS 1 % 11/07/2023 8:10 AM CAUSTIC LOADER [facility] NEUTROPHIL ABSOLUTE 5.70 1.90 - 7.00 K/uL 11/07/2023 8:10 AM CAUSTIC LOADER [facility] SERVICES [facility] LYMPHOCYTE ABSOLUTE 2.00 0.70 - 4.50 K/uL 11/07/2023 8:10 AM CAUSTIC LOADER [facility] MONOCYTE ABSOLUTE 0.60 0.10 - 1.30 K/uL 11/07/2023 8:10 AM CAUSTIC LOADER [facility] SERVICES [facility] EOSINOPHIL ABSOLUTE 1.00(H) 0.00 - 0.70 K/uL 11/07/2023 8:10 AM CAUSTIC LOADER [facility] SERVICES [facility] BASOPHILS ABSOLUTE 0.10 0.00 - 0.20 K/uL 11/07/2023 8:10 AM [facility] Blood 11/07/2023 4:30 AM CAUSTIC LOADER 11/07/2023 8:06 AM CAUSTIC LOADER us Erik Chairez MD HEMATOLOGY ORDERABLES Final Resu lt [facility] CLIA# [id number] [place] [address] * (ABNORMAL) BASIC METABOLIC PANEL (11/07/2023 4:30 AM CAUSTIC LOADER) SODIUM 137 136 - 145 mmol/L 11/07/2023 8:41 AM [facility] POTASSIUM 4.2 3.4 - 5.1 mmol/L 11/07/2023 8:41 AM [facility] CHLORIDE 100 98 - 107 mmol/L 11/07/2023 8:41 AM [facility] CO2 22 22 - 29 mmol/L 11/07/2023 8:41 AM [facility] CALCIUM 9.9 8.6 - 10.4 mg/dL 11/07/2023 8:41 AM [facility] BUN 41(H) 6 - 20 mg/dL 11/07/2023 8:41 AM [facility] CREATININE 1.03 0.67 - 1.17 mg/dL 11/07/2023 8:41 AM [facility] Comment:The GFR result is no t clinically significant on patients <18 or >70 years of age. GLUCOSE 109(H) 74 - 99 mg/dL 11/07/2023 8:41 AM [facility] GFR >60 mL/min/1.7 3 sq meter 11/07/2023 8:41 AM [facility] Comment:eGFR calculated with 2020 CKD-EPI equation. Vegetarian diet, extremely high or low muscle mass, and may affect results. Cystatin C with Glomerular Filtration Rate is a suitable alternative for these patients. 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
--- OUTSIDE RECORDS SUMMARY | 2025-04-18 16:06 | XMS_ITS | Encounter Summary ---
Author Organization [facility] Address [address] [place] [address] Care Team Providers Care Customer Service Administrator Name Role Phone Unavailable Primary Care Provider Unavailabl e Encounter Details Date Type Department Care Team (Late st Contact Info) Description 11/05/2023 Lab Requisition [facility] Laboratory Services [address] [place] [address] [place] [id number] [place] [address] Social History Tobacco Use Types Packs/Day Years Used Date Smoking Tobacco: Never Assessed Sex and Gender Information Value Date Recorded Sex Assigned at Not on file Legal Sex Male 9:18 AM MODELING AGENT Gender Identity Not on file Sexual Orientation Not on file documented as of this encounter Plan of Treatment Not on file documented as of this encounter Procedures Procedure Name Priority Date/Time Associated Diagnosis Comments DIFFERENTIAL, MANUAL Routine 11/05/2023 3:30 AM MODELING AGENT CBC WITH DIFFERENTIAL Routine 11/05/2023 3:30 AM MODELING AGENT documented in this encounter Results * MANUAL DIFFERENTIAL (11/05/2023 3:30 AM MODELING AGENT) PLATELET EST. Consistent w Count 11/05/2023 6:05 AM MODELING AGENT [facility] RBC MORPHOLOGY Normal 11/05/2023 6:05 AM MODELING AGENT [facility] Blood Collection / Unknown 11/05/2023 3:30 AM MODELING AGENT 11/05/2023 5:05 AM MODELING AGENT Erik Chairez MD HEMATOLOGY ORDERABLES COM Final Result [facility] CLIA# [id number] [place] [address] * (ABNORMAL) CBC WITH DIFFERENTIAL (11/05/2023 3:30 AM MODELING AGENT) [facility] WBC 7.5 4.5 - 10.5 K/uL 11/05/2023 6:[address] [facility] LABORATORY [facility] RBC 3.81(L) 4.50 - 5.40 M/uL 11/05/2023 6:05 AM [facility] HEMOGLOBIN 11.9(L) 13.6 - 16.5 g/dL 11/05/2023 6:05 AM [facility] HEMATOCRIT 35.6(L) 40.0 - 48.0 % 11/05/2023 6:[address] [facility] [employer] [facility] MCV 93.5 82.0 - 99.0 fL 11/05/2023 6:[address] [facility] [employer] [facility] MCH 31.2 27.8 - 34.5 pg 11/05/2023 6:[address] [facility] [employer] [facility] MCHC 33.3 32.5 - 35.5 g/dL 11/05/2023 6:[address] [facility] [employer] [facility] RDW 17.0(H) 11.5 - 14.5 % 11/05/2023 6:[address] [facility] [employer] [facility] PLATELETS 243 160 - 420 K/uL 11/05/2023 6:[address] [facility] [employer] [facility] MPV 9.4 8.7 - 12.7 fL 11/05/2023 6:[address] [facility] LABORATORY [facility] NEUTROPHILS 63 % 11/05/2023 6:05 AM MODELING AGENT [facility] [employer] [facility] LYMPHOCYTES 23 % 11/05/2023 6:05 AM MODELING AGENT [facility] LABORATORY [facility] MONOCYTES 5 % 11/05/2023 6:[address] [facility] LABORATORY [facility] EOSINOPHILS 9 % 11/05/2023 6:05 AM MODELING AGENT [facility] LABORATORY [facility] BASOPHILS 1 % 11/05/2023 6:05 AM MODELING AGENT [facility] LABORATORY [facility] NEUTROPHIL ABSOLUTE 4.70 1.90 - 7.00 K/uL 11/05/2023 6:05 AM MODELING AGENT [facility] LABORATORY [facility] LYMPHOCYTE ABSOLUTE 1.70 0.70 - 4.50 K/uL 11/05/2023 6:05 AM MODELING AGENT [facility] LABORATORY [facility] MONOCYTE ABSOLUTE 0.40 0.10 - 1.30 K/uL 11/05/2023 6:05 AM MODELING AGENT [facility] LABORATORY [facility] EOSINOPHIL ABSOLUTE 0.70 0.00 - 0.70 K/uL 11/05/2023 6:05 AM MODELING AGENT [facility] LABORATORY SERVICES - [facility] BASOPHILS ABSOLUTE 0.00 0.00 - 0.20 K/uL 11/05/2023 6:05 AM MODELING AGENT [facility] LABORATORY [facility] Blood Collection / Unknown 11/05/2023 3:30 AM MODELING AGENT 11/05/2023 5:05 AM MODELING AGENT Erik Chairez MD HEMATOLOGY ORDERABLES Final Resu lt [facility] CLIA# [id number] [place] [address] documented in this encounter Visit Diagnoses Not on filedocumented in this encounter Additional Health Concerns Infection Onset Date Last Indicated Resolved Time CRE-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
--- OUTSIDE RECORDS SUMMARY | 2025-04-18 16:06 | XMS_ITS | Encounter Summary ---
Author Organization [facility] Address [address] [place] [address] Care Team Providers Care Marketing Planner Name Role Phone Unavailable Primary Care Provider Unavailabl e Encounter Details Date Type Department Care Team (Late st Contact Info) Description 10/20/2023 Lab Requisition [facility] Laboratory Services [address] [place] [address] [place] [id number] [place] [address] Social History Tobacco Use Types Packs/Day Years Used Date Smoking Tobacco: Never Assessed Sex and Gender Information Value Date Recorded Sex Assigned at Not on file Legal Sex Male 9:18 AM CERTIFIED PHARMACY TECH Gender Identity Not on file Sexual Orientation Not on file documented as of this encounter Plan of Treatment Not on file documented as of this encounter Procedures Procedure Name Priority Date/Time Associated Diagnosis Comments CBC WITH DIFFERENTIAL Routine 10/20/2023 2:20 AM CERTIFIED PHARMACY TECH BASIC METABOLIC PANEL Routine 10/20/2023 2:20 AM CERTIFIED PHARMACY TECH documented in this encounter Results * (ABNORMAL) CBC WITH DIFFERENTIAL (10/20/2023 2:20 AM CERTIFIED PHARMACY TECH) WBC 8.3 4.5 - 10.5 K/uL 10/20/2023 5:25 AM CERTIFIED PHARMACY TECH [facility] SERVICES - [facility] RBC 3.82(L) 4.50 - 5.40 M/uL 10/20/2023 5:25 AM CERTIFIED PHARMACY TECH [facility] LABOR[facility]ORY [facility] HEMOGLOBIN 11.2(L) 13.6 - 16.5 g/dL 10/20/2023 5:25 AM CERTIFIED PHARMACY TECH [facility] SERVICES - [facility] HEMATOCRIT 35.0(L) 40.0 - 48.0 % 10/20/2023 5:25 AM CERTIFIED PHARMACY TECH [facility] LABORATORY SERVICES [facility] MCV 91.6 82.0 - 99.0 fL 10/20/2023 5:25 AM CERTIFIED PHARMACY TECH [facility] LABORATORY SERVICES - [facility] MCH 29.4 27.8 - 34.5 pg 10/20/2023 5:25 AM CERTIFIED PHARMACY TECH [facility] LABORATORY SERVICES [facility] MCHC 32.1(L) 32.5 - 35.5 g/dL 10/20/2023 5:25 AM CERTIFIED PHARMACY TECH [facility]ORATORY SERVICES - [facility] RDW 17.4(H) 11.5 - 14.5 % 10/20/2023 5:25 AM CERTIFIED PHARMACY TECH [facility] - [facility] PLATELETS 255 160 - 420 K/uL 10/20/2023 5:25 AM CERTIFIED PHARMACY TECH [facility] SERVICES [facility] MPV 9.4 8.7 - 12.7 fL 10/20/2023 5:25 AM CERTIFIED PHARMACY TECH [facility] - [facility] NEUTROPHILS 60 % 10/20/2023 5:25 AM CERTIFIED PHARMACY TECH [facility] LYMPHOCYTES 23 % 10/20/2023 5:25 AM CERTIFIED PHARMACY TECH [email or web address] LABORATORY SERVICES [facility] MONOCYTES 6 % 10/20/2023 5:25 AM CERTIFIED PHARMACY TECH [facility] EOSINOPHILS 11 % 10/20/2023 5:25 AM CERTIFIED PHARMACY TECH [facility] SERVICES [facility] BASOPHILS 1 % 10/20/2023 5:25 AM CERTIFIED PHARMACY TECH [facility] SERVICES [facility] NEUTROPHIL ABSOLUTE 4.90 1.90 - 7.00 K/uL 10/20/2023 5:25 AM CERTIFIED PHARMACY TECH [facility] LYMPHOCYTE ABSOLUTE 1.90 0.70 - 4.50 K/uL 10/20/2023 5:25 AM CERTIFIED PHARMACY TECH [email or web address] LABORATORY SERVICES [facility] MONOCYTE ABSOLUTE 0.50 0.10 - 1.30 K/uL 10/20/2023 5:25 AM CERTIFIED PHARMACY TECH [facility] EOSINOPHIL ABSOLUTE 0.90(H) 0.00 - 0.70 K/uL 10/20/2023 5:25 AM CERTIFIED PHARMACY TECH [facility] BASOPHILS ABSOLUTE 0.00 0.00 - 0.20 K/uL 10/20/2023 5:[address] [facility] Blood 10/20/2023 2:20 AM CERTIFIED PHARMACY TECH 10/20/2023 5:15 AM CERTIFIED PHARMACY TECH Erik Chairez MD HEMATOLOGY ORDERABLES Final Resu lt [facility] CLIA# [id number] [address] [place] [address] * (ABNORMAL) BASIC METABOLIC PANEL (10/20/2023 2:20 AM CERTIFIED PHARMACY TECH) SODIUM 140 136 - 145 mmol/L 10/20/2023 5:[address] [facility] POTASSIUM 3.8 3.4 - 5.1 mmol/L 10/20/2023 5:[address] [facility] CHLORIDE 101 98 - 107 mmol/L 10/20/2023 5:[address] [facility] CO2 26 22 - 29 mmol/L 10/20/2023 5:[address] [facility] CALCIUM 9.6 8.6 - 10.4 mg/dL 10/20/2023 5:[address] [facility] BUN 30(H) 6 - 20 mg/dL 10/20/2023 5:[address] [facility] CREATININE 0.89 0.67 - 1.17 mg/dL 10/20/2023 5:[address] [facility] Comment:The GFR result is no t clinically significant on patients <18 or >70 years of age. GLUCOSE 110(H) 74 - 99 mg/dL 10/20/2023 5:[address] [facility] GFR >60 mL/min/1.7 3 sq meter 10/20/2023 5:[address] [facility] Comment:eGFR calculated with 2020 CKD-EPI equation. Vegetarian diet, extremely high or low muscle mass, and may affect results. Cystatin C with Glomerular Filtration Rate is a suitable alternative for these patients. ANION GAP 13 8 - 16 mmol/L 10/20/2023 5:53 AM CERTIFIED PHARMACY TECH [facility] LABORATORY SERVICES [facility] Blood 10/20/2023 2:20 AM CERTIFIED PHARMACY TECH 10/20/2023 5:15 AM CERTIFIED PHARMACY TECH Erik Chairez MD CHEMISTRY ORDERABLES Final Resul t [facility] CLIA# [id number] [place] [address] documented in this encounter Visit Diagnoses Not on filedocumented in this encounter Additional Health Concerns Infection Onset Date Last Indicated Resolved Time CRE-CP Comment: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
--- OUTSIDE RECORDS SUMMARY | 2025-04-18 16:06 | XMS_ITS | Encounter Summary ---
Author Organization [facility] Address [address] [place] [address] Care Team Providers Care Math Interventionist Name Role Phone Unavailable Primary Care Provider Unavailabl e Encounter Details Date Type Department Care Team (Late st Contact Info) Description 10/26/2023 Lab Requisition [facility] Laboratory Services [address] [address] [place] [address] [place] [address] Social History Tobacco Use Types Packs/Day Years Used Date Smoking Tobacco: Never Assessed Sex and Gender Information Value Date Recorded Sex Assigned at Not on file Legal Sex Male 9:18 AM WAFER FAB OPERATOR Gender Identity Not on file Sexual Orientation Not on file documented as of this encounter Plan of Treatment Not on file documented as of this encounter Procedures Procedure Name Priority Date/Time Associated Diagnosis Comments CBC WITH DIFFERENTIAL Routine 10/26/2023 3:20 AM WAFER FAB OPERATOR BASIC METABOLIC PANEL Routine 10/26/2023 3:20 AM WAFER FAB OPERATOR documented in this encounter Results * (ABNORMAL) CBC WITH DIFFERENTIAL (10/26/2023 3:20 AM WAFER FAB OPERATOR) WBC 9.2 4.5 - 10.5 K/uL 10/26/2023 5:32 AM WAFER FAB OPERATOR [facility] - [facility] RBC 3.83(L) 4.50 - 5.40 M/uL 10/26/2023 5:32 AM WAFER FAB OPERATOR [facility] HEMOGLOBIN 11.4(L) 13.6 - 16.5 g/dL 10/26/2023 5:32 AM WAFER FAB OPERATOR [facility] HEMATOCRIT 35.4(L) 40.0 - 48.0 % 10/26/2023 5:32 AM WAFER FAB OPERATOR [facility] MCV 92.4 82.0 - 99.0 fL 10/26/2023 5:32 AM WAFER FAB OPERATOR [facility] - [facility] MCH 29.6 27.8 - 34.5 pg 10/26/2023 5:32 AM WAFER FAB OPERATOR [facility] MCHC 32.0(L) 32.5 - 35.5 g/dL 10/26/2023 5:32 AM WAFER FAB OPERATOR [facility] RDW 17.3(H) 11.5 - 14.5 % 10/26/2023 5:32 AM WAFER FAB OPERATOR [facility] PLATELETS 240 160 - 420 K/uL 10/26/2023 5:32 AM WAFER FAB OPERATOR [facility] MPV 9.3 8.7 - 12.7 fL 10/26/2023 5:32 AM WAFER FAB OPERATOR [facility] NEUTROPHILS 69 % 10/26/2023 5:32 AM WAFER FAB OPERATOR [facility] LYMPHOCYTES 21 % 10/26/2023 5:32 AM WAFER FAB OPERATOR [employer] LABORATORY SERVICES [facility] MONOCYTES 6 % 10/26/2023 5:32 AM WAFER FAB OPERATOR [facility] EOSINOPHILS 4 % 10/26/2023 5:32 AM WAFER FAB OPERATOR [facility] BASOPHILS 1 % 10/26/2023 5:32 AM WAFER FAB OPERATOR [facility] NEUTROPHIL ABSOLUTE 6.30 1.90 - 7.00 K/uL 10/26/2023 5:32 AM WAFER FAB OPERATOR [facility] LYMPHOCYTE ABSOLUTE 1.90 0.70 - 4.50 K/uL 10/26/2023 5:32 AM WAFER FAB OPERATOR [facility] MONOCYTE ABSOLUTE 0.50 0.10 - 1.30 K/uL 10/26/2023 5:32 AM WAFER FAB OPERATOR [facility] EOSINOPHIL ABSOLUTE 0.40 0.00 - 0.70 K/uL 10/26/2023 5:32 AM WAFER FAB OPERATOR [facility] BASOPHILS ABSOLUTE 0.00 0.00 - 0.20 K/uL 10/26/2023 5:32 AM [facility] Blood Collection / Unknown 10/26/2023 3:20 AM WAFER FAB OPERATOR 10/26/2023 4:57 AM WAFER FAB OPERATOR Erik Chairez MD HEMATOLOGY ORDERABLES Final Resu lt [facility] CLIA# [id number] [facility] [place] [address] * (ABNORMAL) BASIC METABOLIC PANEL (10/26/2023 3:20 AM WAFER FAB OPERATOR) SODIUM 137 136 - 145 mmol/L 10/26/2023 5:58 AM [facility] POTASSIUM 4.2 3.4 - 5.1 mmol/L 10/26/2023 5:58 AM [facility] CHLORIDE 100 98 - 107 mmol/L 10/26/2023 5:58 AM [facility] CO2 27 22 - 29 mmol/L 10/26/2023 5:58 AM [facility] CALCIUM 9.8 8.6 - 10.4 mg/dL 10/26/2023 5:58 AM [facility] BUN 39(H) 6 - 20 mg/dL 10/26/2023 5:58 AM [facility] CREATININE 1.01 0.67 - 1.17 mg/dL 10/26/2023 5:58 AM [facility] Comment:The GFR result is no t clinically significant on patients <18 or >70 years of age. GLUCOSE 110(H) 74 - 99 mg/dL 10/26/2023 5:58 AM [facility] GFR >60 mL/min/1.7 3 sq meter 10/26/2023 5:58 AM [facility] Comment:eGFR calculated with 2020 CKD-EPI equation. Vegetarian diet, extremely high or low muscle mass, and may affect results. Cystatin C with Glomerular Filtration Rate is a suitable alternative for these patients. ANION GAP 10 8 - 16 mmol/L 10/26/2023 5:58 AM WAFER FAB OPERATOR [facility] Blood Collection / Unknown 10/26/2023 3:20 AM WAFER FAB OPERATOR 10/26/2023 4:57 AM WAFER FAB OPERATOR Erik Chairez MD CHEMISTRY ORDERABLES Final Resul t [facility] CLIA# [id number] [address] [place] [address] documented in this encounter Visit Diagnoses Not on filedocumented in this encounter Additional Health Concerns Infection Onset Date Last Indicated Resolved Time CRE-CP Comment:10/09/23 Klebsiella pneumoniae, Sputum 10/09/2023 10/09/2023 05/28/2024 2:37 PM C DT 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
--- OUTSIDE RECORDS SUMMARY | 2025-04-18 16:06 | XMS_ITS | Encounter Summary ---
Author Organization [facility] Address [address] [place] [address] Care Team Providers Care Metal Reed Tuner Name Role Phone Unavailable Primary Care Provider Unavailabl e Encounter Details Date Type Department Care Team (Late st Contact Info) Description 11/07/2023 Lab Requisition [facility] Laboratory Services [address] [place] [address] [place] [address] [place] [address] Social History Tobacco Use Types Packs/Day Years Used Date Smoking Tobacco: Never Assessed Sex and Gender Information Value Date Recorded Sex Assigned at Not on file Legal Sex Male 9:18 AM ENGAGEMENT MGR Gender Identity Not on file Sexual Orientation Not on file documented as of this encounter Plan of Treatment Not on file documented as of this encounter Procedures Procedure Name Priority Date/Time Associated Diagnosis Comments THEOPHYLLINE LEVEL Routine 11/07/2023 8: 40 AM ENGAGEMENT MGR documented in this encounter Results * (ABNORMAL) THEOPHYLLINE LEVEL (11/07/2023 8:40 AM ENGAGEMENT MGR) THEOPHYLLINE LEVEL <0.8(L) 10.0 - 20.0 ug/mL 11/07/2023 3:56 PM ENGAGEMENT MGR [facility] Comment:Verified by repeat a nalysis. TDM LAST DATE, TIME, AMT (TIFFANIE) Patient unable to state date. time or dose. 11/07/2023 3:56 PM ENGAGEMENT MGR [facility] LAST DOSE AMT, THEOPHYLLINE Other 11/07/2023 3:56 PM ENGAGEMENT MGR [facility] Comment:80 mg Blood 11/07/2023 8:40 AM ENGAGEMENT MGR 11/07/2023 10:34 AM ENGAGEMENT MGR Narrative [facility] - 11/07/2023 3:56 PM ENGAGEMENT MGR Theophylline Toxic Levels: 6 months - Adult = >20.0 ug/mL 0 - 6 months = >15.0 ug/mL Erik Chairez MD CHEMISTRY ORDERABLES Final Resul t [facility] CLIA# [id number] [address] [place] [address] [facility] CLIA# [id number] [address] [place] [address] documented in this encounter Visit Diagnoses Not on filedocumented in this encounter Additional Health Concerns Infection Onset Date Last Indicated Resolved Time CRE-CP Comment:10/09/23 Klebsiella pneumoniae, Sputum 10/09/2023 10/09/2023 05/28/2024 2:37 PM C 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
--- OUTSIDE RECORDS SUMMARY | 2025-04-18 16:06 | XMS_ITS | Encounter Summary ---
Author Organization [facility] Address [address] [place] [address] Care Team Providers Care Ophthalmic Asst Name Role Phone Unavailable Primary Care Provider Unavailabl e Encounter Details Date Type Department Care Team (Late st Contact Info) Description 11/10/2023 Lab Requisition [facility] Laboratory Services [address] [place] [address] [place] [address] [place] [address] Social History Tobacco Use Types Packs/Day Years Used Date Smoking Tobacco: Never Assessed Sex and Gender Information Value Date Recorded Sex Assigned at Not on file Legal Sex Male 9:18 AM DOSIER OPERATOR Gender Identity Not on file Sexual Orientation Not on file documented as of this encounter Plan of Treatment Not on file documented as of this encounter Procedures Procedure Name Priority Date/Time Associated Diagnosis Comments CBC WITH DIFFERENTIAL Routine 11/10/2023 6:10 AM DOSIER OPERATOR BASIC METABOLIC PANEL Routine 11/10/2023 6:10 AM DOSIER OPERATOR documented in this encounter Results * (ABNORMAL) CBC WITH DIFFERENTIAL (11/10/2023 6:10 AM DOSIER OPERATOR) WBC 7.9 4.5 - 10.5 K/uL 11/10/2023 6:[address] [facility] - [facility] RBC 3.65(L) 4.50 - 5.40 M/uL 11/10/2023 6:[address] [facility] HEMOGLOBIN 10.8(L) 13.6 - 16.5 g/dL 11/10/2023 6:[address] [facility] HEMATOCRIT 33.6(L) 40.0 - 48.0 % 11/10/2023 6:[address] [facility] MCV 92.0 82.0 - 99.0 fL 11/10/2023 6:[address] [facility] MCH 29.7 27.8 - 34.5 pg 11/10/2023 6:[address] [facility] MCHC 32.2(L) 32.5 - 35.5 g/dL 11/10/2023 6:[address] [facility] RDW 17.0(H) 11.5 - 14.5 % 11/10/2023 6:[address] [facility] PLATELETS 251 160 - 420 K/uL 11/10/2023 6:[address] [facility] MPV 9.2 8.7 - 12.7 fL 11/10/2023 6:[address] [facility] NEUTROPHILS 62 % 11/10/2023 6:[address] [facility] LYMPHOCYTES 22 % 11/10/2023 6:[address] [facility] MONOCYTES 5 % 11/10/2023 6:[address] [facility] EOSINOPHILS 10 % 11/10/2023 6:[address] [facility] BASOPHILS 1 % 11/10/2023 6:[address] [facility] NEUTROPHIL ABSOLUTE 4.90 1.90 - 7.00 K/uL 11/10/2023 6:[address] [facility] LYMPHOCYTE ABSOLUTE 1.70 0.70 - 4.50 K/uL 11/10/2023 6:[address] [facility] MONOCYTE ABSOLUTE 0.40 0.10 - 1.30 K/uL 11/10/2023 6:[address] [facility] EOSINOPHIL ABSOLUTE 0.80(H) 0.00 - 0.70 K/uL 11/10/2023 6:[address] [facility] BASOPHILS ABSOLUTE 0.10 0.00 - 0.20 K/uL 11/10/2023 6:55 AM [facility] Blood 11/10/2023 6:10 AM DOSIER OPERATOR 11/10/2023 6:41 AM DOSIER OPERATOR Erik Chairez MD HEMATOLOGY ORDERABLES Final Resu lt [facility] CLIA# [id number] [place] [address] * (ABNORMAL) BASIC METABOLIC PANEL (11/10/2023 6:10 AM DOSIER OPERATOR) SODIUM 139 136 - 145 mmol/L 11/10/2023 7:14 AM [facility] POTASSIUM 4.2 3.4 - 5.1 mmol/L 11/10/2023 7:14 AM [facility] CHLORIDE 103 98 - 107 mmol/L 11/10/2023 7:14 AM [facility] CO2 26 22 - 29 mmol/L 11/10/2023 7:14 AM [facility] CALCIUM 9.4 8.6 - 10.4 mg/dL 11/10/2023 7:14 AM [facility] BUN 39(H) 6 - 20 mg/dL 11/10/2023 7:14 AM [facility] CREATININE 0.98 0.67 - 1.17 mg/dL 11/10/2023 7:14 AM [facility] Comment:The GFR result is no t clinically significant on patients <18 or >70 years of age. GLUCOSE 111(H) 74 - 99 mg/dL 11/10/2023 7:14 AM [facility] GFR >60 mL/min/1.7 3 sq meter 11/10/2023 7:14 AM [facility] Comment:eGFR calculated with 2020 CKD-EPI equation. Vegetarian diet, extremely high or low muscle mass, and may affect results. Cystatin C with Glomerular Filtration Rate is a suitable alternative for these patients. ANION GAP 10 8 - 16 mmol/L 11/10/2023 7:[address] [facility] SERVICES [facility] Blood 11/10/2023 6:10 AM DOSIER OPERATOR 11/10/2023 6:41 AM DOSIER OPERATOR Erik Chairez MD CHEMISTRY ORDERABLES Final Resul t 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
--- OUTSIDE RECORDS SUMMARY | 2025-04-18 16:06 | XMS_ITS | Encounter Summary ---
Author Organization [facility] Address [address] [place] [address] Care Team Providers Care Personnel Training Officer Name Role Phone Unavailable Primary Care Provider Unavailabl e Encounter Details Date Type Department Care Team (Late st Contact Info) Description 10/29/[address] [facility] Laboratory Services [address] [place] [address] [place] [address] [place] [address] Social History Tobacco Use Types Packs/Day Years Used Date Smoking Tobacco: Never Assessed Sex and Gender Information Value Date Recorded Sex Assigned at Not on file Legal Sex Male 9:18 AM SOLVENT PLANT OPERATOR Gender Identity Not on file Sexual Orientation Not on file documented as of this encounter Plan of Treatment Not on file documented as of this encounter Procedures Procedure Name Priority Date/Time Associated Diagnosis Comments CBC WITH DIFFERENTIAL Routine 10/29/2023 3:20 AM SOLVENT PLANT OPERATOR BASIC METABOLIC PANEL Routine 10/29/2023 3:20 AM SOLVENT PLANT OPERATOR documented in this encounter Results * (ABNORMAL) CBC WITH DIFFERENTIAL (10/29/2023 3:20 AM SOLVENT PLANT OPERATOR) WBC 8.0 4.5 - 10.5 K/uL 10/29/2023 8:18 AM SOLVENT PLANT OPERATOR [facility] - [facility] RBC 3.85(L) 4.50 - 5.40 M/uL 10/29/2023 8:18 AM SOLVENT PLANT OPERATOR [facility] - [facility] HEMOGLOBIN 11.6(L) 13.6 - 16.5 g/dL 10/29/2023 8:18 AM SOLVENT PLANT OPERATOR [facility] - [facility] HEMATOCRIT 35.7(L) 40.0 - 48.0 % 10/29/2023 8:18 AM SOLVENT PLANT OPERATOR [facility] SERVICES [facility] MCV 92.6 82.0 - 99.0 fL 10/29/2023 8:18 AM SOLVENT PLANT OPERATOR [facility] - [facility] MCH 30.0 27.8 - 34.5 pg 10/29/2023 8:18 AM SOLVENT PLANT OPERATOR [facility] SERVICES [facility] MCHC 32.4(L) 32.5 - 35.5 g/dL 10/29/2023 8:18 AM SOLVENT PLANT OPERATOR [facility] SERVICES [facility] RDW 17.3(H) 11.5 - 14.5 % 10/29/2023 8:18 AM SOLVENT PLANT OPERATOR [facility] SERVICES [facility] PLATELETS 255 160 - 420 K/uL 10/29/2023 8:18 AM SOLVENT PLANT OPERATOR [facility] SERVICES [facility] MPV 9.9 8.7 - 12.7 fL 10/29/2023 8:18 AM SOLVENT PLANT OPERATOR [facility] SERVICES [facility] NEUTROPHILS 61 % 10/29/2023 8:18 AM SOLVENT PLANT OPERATOR [facility] SERVICES [facility] LYMPHOCYTES 22 % 10/29/2023 8:18 AM SOLVENT PLANT OPERATOR [facility] LAB[facility] SERVICES [facility] MONOCYTES 6 % 10/29/2023 8:18 AM SOLVENT PLANT OPERATOR [facility] EOSINOPHILS 11 % 10/29/2023 8:18 AM SOLVENT PLANT OPERATOR [facility] SERVICES [facility] BASOPHILS 1 % 10/29/2023 8:18 AM SOLVENT PLANT OPERATOR [facility] SERVICES [facility] NEUTROPHIL ABSOLUTE 4.90 1.90 - 7.00 K/uL 10/29/2023 8:18 AM SOLVENT PLANT OPERATOR [facility] SERVICES [facility] LYMPHOCYTE ABSOLUTE 1.70 0.70 - 4.50 K/uL 10/29/2023 8:18 AM SOLVENT PLANT OPERATOR [facility] SERVICES [facility] MONOCYTE ABSOLUTE 0.50 0.10 - 1.30 K/uL 10/29/2023 8:18 AM SOLVENT PLANT OPERATOR [facility] SERVICES [facility] EOSINOPHIL ABSOLUTE 0.80(H) 0.00 - 0.70 K/uL 10/29/2023 8:18 AM SOLVENT PLANT OPERATOR [facility] SERVICES [facility] BASOPHILS ABSOLUTE 0.00 0.00 - 0.20 K/uL 10/29/2023 8:18 AM [facility] Blood Collection / Unknown 10/29/2023 3:20 AM SOLVENT PLANT OPERATOR 10/29/2023 7:59 AM SOLVENT PLANT OPERATOR Erik Chairez MD HEMATOLOGY ORDERABLES Final Resu lt [facility] CLIA# [id number] [place] [address] * (ABNORMAL) BASIC METABOLIC PANEL (10/29/2023 3:20 AM SOLVENT PLANT OPERATOR) SODIUM 141 136 - 145 mmol/L 10/29/2023 8:38 AM [facility] POTASSIUM 4.5 3.4 - 5.1 mmol/L 10/29/2023 8:38 AM [facility] CHLORIDE 101 98 - 107 mmol/L 10/29/2023 8:38 AM [facility] CO2 28 22 - 29 mmol/L 10/29/2023 8:38 AM [facility] CALCIUM 10.2 8.6 - 10.4 mg/dL 10/29/2023 8:38 AM [facility] BUN 42(H) 6 - 20 mg/dL 10/29/2023 8:38 AM [facility] CREATININE 1.05 0.67 - 1.17 mg/dL 10/29/2023 8:38 AM [facility] Comment:The GFR result is no t clinically significant on patients <18 or >70 years of age. GLUCOSE 112(H) 74 - 99 mg/dL 10/29/2023 8:38 AM [facility] GFR >60 mL/min/1.7 3 sq meter 10/29/2023 8:38 AM [facility] Comment:eGFR calculated with 2020 CKD-EPI equation. Vegetarian diet, extremely high or low muscle mass, and may affect results. Cystatin C with Glomerular Filtration Rate is a suitable alternative for these patients. ANION GAP 12 8 - 16 mmol/L 10/29/2023 8:38 AM SOLVENT PLANT OPERATOR [facility] SERVICES [facility] Blood Collection / Unknown 10/29/2023 3:20 AM SOLVENT PLANT OPERATOR 10/29/2023 7:59 AM SOLVENT PLANT OPERATOR Erik Chairez MD CHEMISTRY ORDERABLES Final Resul t [facility] CLIA# [id number] [place] [address] documented in this encounter Visit Diagnoses Not on filedocumented in this encounter Additional Health Concerns Infection Onset Date Last Indicated Resolved Time CRE-CP Comment:10/09/23 Klebsiella pneumoniae, Sputum 10/09/2023 10/09/2023 05/28/2024 2:37 PM C DT 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
--- OUTSIDE RECORDS SUMMARY | 2025-04-18 16:06 | XMS_ITS | Encounter Summary ---
Author Organization [facility] Address [address] [place] [address] Care Team Providers Care Golf Range Attendant Name Role Phone Unavailable Primary Care Provider Unavailabl e Encounter Details Date Type Department Care Team (Late st Contact Info) Description 10/17/2023 Lab Requisition [facility] Laboratory Services [address] [place] [address] [place] [address] [place] [address] Social History Tobacco Use Types Packs/Day Years Used Date Smoking Tobacco: Never Assessed Sex and Gender Information Value Date Recorded Sex Assigned at Not on file Legal Sex Male 9:18 AM COMPOSING ROOM MACHINIST Gender Identity Not on file Sexual Orientation Not on file documented as of this encounter Plan of Treatment Not on file documented as of this encounter Procedures Procedure Name Priority Date/Time Associated Diagnosis Comments CBC WITH DIFFERENTIAL Routine 10/17/2023 2:15 AM COMPOSING ROOM MACHINIST MAGNESIUM LEVEL Routine 10/17/2023 2:15 AM COMPOSING ROOM MACHINIST RENAL FUNCTION PANEL Routine 10/17/2023 2:15 AM COMPOSING ROOM MACHINIST documented in this encounter Results * MAGNESIUM LEVEL (10/17/2023 2:15 AM COMPOSING ROOM MACHINIST) MAGNESIUM 2.3 1.6 - 2.6 mg/dL 10/17/2023 9:56 AM COMPOSING ROOM MACHINIST [facility] Blood Collection / Unknown 10/17/2023 2:15 AM COMPOSING ROOM MACHINIST 10/17/2023 9:00 AM COMPOSING ROOM MACHINIST Erik Chairez MD CHEMISTRY ORDERABLES Final Resul t [facility] CLIA# [id number] [place] [address] * (ABNORMAL) CBC WITH DIFFERENTIAL (10/17/2023 2:15 AM COMPOSING ROOM MACHINIST) WBC 6.7 4.5 - 10.5 K/uL 10/17/2023 9:34 AM COMPOSING ROOM MACHINIST [facility] RBC 3.73(L) 4.50 - 5.40 M/uL 10/17/2023 9:34 AM COMPOSING ROOM MACHINIST [facility] HEMOGLOBIN 11.1(L) 13.6 - 16.5 g/dL 10/17/2023 9:34 AM COMPOSING ROOM MACHINIST [facility] HEMATOCRIT 35.0(L) 40.0 - 48.0 % 10/17/2023 9:34 AM COMPOSING ROOM MACHINIST [facility] MCV 93.8 82.0 - 99.0 fL 10/17/2023 9:34 AM COMPOSING ROOM MACHINIST [facility] MCH 29.8 27.8 - 34.5 pg 10/17/2023 9:34 AM COMPOSING ROOM MACHINIST [facility] MCHC 31.8(L) 32.5 - 35.5 g/dL 10/17/2023 9:34 AM COMPOSING ROOM MACHINIST [facility] RDW 17.4(H) 11.5 - 14.5 % 10/17/2023 9:34 AM COMPOSING ROOM MACHINIST [facility] PLATELETS 214 160 - 420 K/uL 10/17/2023 9:34 AM COMPOSING ROOM MACHINIST [facility] MPV 9.5 8.7 - 12.7 fL 10/17/2023 9:34 AM COMPOSING ROOM MACHINIST [facility] NEUTROPHILS 50 % 10/17/2023 9:34 AM COMPOSING ROOM MACHINIST [facility] LYMPHOCYTES 28 % 10/17/2023 9:34 AM COMPOSING ROOM MACHINIST [facility] MONOCYTES 8 % 10/17/2023 9:34 AM COMPOSING ROOM MACHINIST [facility] EOSINOPHILS 13 % 10/17/2023 9:34 AM COMPOSING ROOM MACHINIST [facility] BASOPHILS 0 % 10/17/2023 9:34 AM COMPOSING ROOM MACHINIST [facility] NEUTROPHIL ABSOLUTE 3.40 1.90 - 7.00 K/uL 10/17/2023 9:34 AM COMPOSING ROOM MACHINIST [facility] LYMPHOCYTE ABSOLUTE 1.90 0.70 - 4.50 K/uL 10/17/2023 9:34 AM COMPOSING ROOM MACHINIST [facility] MONOCYTE ABSOLUTE 0.50 0.10 - 1.30 K/uL 10/17/2023 9:34 AM COMPOSING ROOM MACHINIST [facility] EOSINOPHIL ABSOLUTE 0.90(H) 0.00 - 0.70 K/uL 10/17/2023 9:34 AM COMPOSING ROOM MACHINIST [facility] BASOPHILS ABSOLUTE 0.00 0.00 - 0.20 K/uL 10/17/2023 9:34 AM COMPOSING ROOM MACHINIST [facility] Blood Collection / Unknown 10/17/2023 2:15 AM COMPOSING ROOM MACHINIST 10/17/2023 9:00 AM COMPOSING ROOM MACHINIST us Erik Chairez MD HEMATOLOGY ORDERABLES Final Resu lt [facility] CLIA# [id number] [place] [address] * (ABNORMAL) RENAL FUNCTION PANEL (10/17/2023 2:15 AM COMPOSING ROOM MACHINIST) SODIUM 137 136 - 145 mmol/L 10/17/2023 9:56 AM [facility] [employer] [facility] POTASSIUM 4.0 3.4 - 5.1 mmol/L 10/17/2023 9:56 AM [facility]ORAT[facility] CHLORIDE 99 98 - 107 mmol/L 10/17/2023 9:56 AM [facility] [employer] [facility] CO2 23 22 - 29 mmol/L 10/17/2023 9:56 AM [facility] [employer] [facility] CALCIUM 9.2 8.6 - 10.4 mg/dL 10/17/2023 9:56 AM [facility] [employer] [facility] BUN 42(H) 6 - 20 mg/dL 10/17/2023 9:56 AM [facility] CREATININE 1.00 0.67 - 1.17 mg/dL 10/17/2023 9:56 AM [facility] Comment:The GFR result is no t clinically significant on patients <18 or >70 years of age. GLUCOSE 72(L) 74 - 99 mg/dL 10/17/2023 9:56 AM [facility] ALBUMIN 3.2(L) 3.5 - 5.2 g/dL 10/17/2023 9:56 AM [facility] PHOSPHORUS 2.9 2.5 - 4.5 mg/dL 10/17/2023 9:56 AM [facility] GFR >60 mL/min/1.7 3 sq meter 10/17/2023 9:56 AM [facility] Comment:eGFR calculated with 2020 CKD-EPI equation. Vegetarian diet, extremely high or low muscle mass, and may affect results. Cystatin C with Glomerular Filtration Rate is a suitable alternative for these patients. 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
--- OUTSIDE RECORDS SUMMARY | 2025-04-18 16:06 | XMS_ITS | Encounter Summary ---
Author Organization [facility] Address [address] [place] [address] Care Team Providers Care Tar Heat Exchanger Cleaner Name Role Phone Unavailable Primary Care Provider Unavailabl e Encounter Details Date Type Department Care Team (Late st Contact Info) Description 11/04/2023 Lab Requisition [facility] Laboratory Services [address] [place] [address] [place] [address] [place] [address] Social History Tobacco Use Types Packs/Day Years Used Date Smoking Tobacco: Never Assessed Sex and Gender Information Value Date Recorded Sex Assigned at Not on file Legal Sex Male 9:18 AM GAS JOCKEY Gender Identity Not on file Sexual Orientation Not on file documented as of this encounter Plan of Treatment Not on file documented as of this encounter Procedures Procedure Name Priority Date/Time Associated Diagnosis Comments CBC WITH DIFFERENTIAL Routine 11/04/2023 3:45 AM GAS JOCKEY BASIC METABOLIC PANEL Routine 11/04/2023 3:45 AM GAS JOCKEY documented in this encounter Results * (ABNORMAL) CBC WITH DIFFERENTIAL (11/04/2023 3:45 AM GAS JOCKEY) WBC 12.2(H) 4.5 - 10.5 K/uL 11/04/2023 8:52 AM GAS JOCKEY [facility] - [facility] RBC 4.11(L) 4.50 - 5.40 M/uL 11/04/2023 8:52 AM GAS JOCKEY [facility] HEMOGLOBIN 11.7(L) 13.6 - 16.5 g/dL 11/04/2023 8:52 AM GAS JOCKEY [facility] HEMATOCRIT 37.9(L) 40.0 - 48.0 % 11/04/2023 8:52 AM GAS JOCKEY [facility] MCV 92.2 82.0 - 99.0 fL 11/04/2023 8:52 AM GAS JOCKEY [facility] MCH 28.5 27.8 - 34.5 pg 11/04/2023 8:52 AM GAS JOCKEY [facility] MCHC 30.9(L) 32.5 - 35.5 g/dL 11/04/2023 8:52 AM GAS JOCKEY [facility] RDW 17.0(H) 11.5 - 14.5 % 11/04/2023 8:52 AM GAS JOCKEY [facility] PLATELETS 272 160 - 420 K/uL 11/04/2023 8:52 AM GAS JOCKEY [facility] MPV 10.0 8.7 - 12.7 fL 11/04/2023 8:52 AM GAS JOCKEY [facility] NEUTROPHILS 45 % 11/04/2023 8:52 AM GAS JOCKEY [facility] LYMPHOCYTES 38 % 11/04/2023 8:52 AM GAS JOCKEY [facility] MONOCYTES 7 % 11/04/2023 8:52 AM GAS JOCKEY [facility] EOSINOPHILS 11 % 11/04/2023 8:52 AM GAS JOCKEY [facility] BASOPHILS 1 % 11/04/2023 8:52 AM GAS JOCKEY [facility] NEUTROPHIL ABSOLUTE 5.50 1.90 - 7.00 K/uL 11/04/2023 8:52 AM GAS JOCKEY [facility] LYMPHOCYTE ABSOLUTE 4.60(H) 0.70 - 4.50 K/uL 11/04/2023 8:52 AM GAS JOCKEY [facility] MONOCYTE ABSOLUTE 0.80 0.10 - 1.30 K/uL 11/04/2023 8:52 AM GAS JOCKEY [facility] EOSINOPHIL ABSOLUTE 1.30(H) 0.00 - 0.70 K/uL 11/04/2023 8:52 AM GAS JOCKEY [facility] BASOPHILS ABSOLUTE 0.10 0.00 - 0.20 K/uL 11/04/2023 8:52 AM [facility] [employer] [facility] Blood 11/04/2023 3:45 AM GAS JOCKEY 11/04/2023 8:24 AM GAS JOCKEY Erik Chairez MD HEMATOLOGY ORDERABLES Final Resu lt [facility] CLIA# [id number] [place] [address] * (ABNORMAL) BASIC METABOLIC PANEL (11/04/2023 3:45 AM GAS JOCKEY) SODIUM 144 136 - 145 mmol/L 11/04/2023 9:49 AM [facility] POTASSIUM 5.3(H) 3.4 - 5.1 mmol/L 11/04/2023 9:49 AM [facility] CHLORIDE 103 98 - 107 mmol/L 11/04/2023 9:49 AM [facility] CO2 26 22 - 29 mmol/L 11/04/2023 9:49 AM [facility] CALCIUM 10.7(H) 8.6 - 10.4 mg/dL 11/04/2023 9:49 AM [facility] BUN 38(H) 6 - 20 mg/dL 11/04/2023 9:49 AM [facility] CREATININE 0.95 0.67 - 1.17 mg/dL 11/04/2023 9:49 AM [facility] Comment:The GFR result is no t clinically significant on patients <18 or >70 years of age. GLUCOSE 114(H) 74 - 99 mg/dL 11/04/2023 9:49 AM [facility] GFR >60 mL/min/1.7 3 sq meter 11/04/2023 9:49 AM [facility] Comment:eGFR calculated with 2020 CKD-EPI equation. Vegetarian diet, extremely high or low muscle mass, and may affect results. Cystatin C with Glomerular Filtration Rate is a suitable alternative for these patients. ANION GAP 15 8 - 16 mmol/L 11/04/2023 9:49 AM GAS JOCKEY [facility] Blood 11/04/2023 3:45 AM GAS JOCKEY 11/04/2023 8:24 AM GAS JOCKEY Erik Chairez MD CHEMISTRY ORDERABLES Final Resul t [facility] CLIA# [id number] [place] [address] documented in this encounter Visit Diagnoses Not on filedocumented in this encounter Additional Health Concerns Infection Onset Date Last Indicated Resolved Time CRE-CP Comment:10/09/23 Klebsiella pneumoniae, Sputum 10/09/2023 10/09/2023 05/28/2024 2:37 PM C DT 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
--- OUTSIDE RECORDS SUMMARY | 2025-04-18 16:06 | XMS_ITS | Clinical Summary ---
Author Organization [facility] Address [address] [place] [address] Care Team Providers Care Photographer News Name Role Phone Demond Stark MD Primary Care Provider [phone] Allergies Active Allergy Reactions Criticality Noted Date Comments Diphenhydramine Hallucinations Medium 11/27/2023 Was not able to sleep and made him more anxious Lisinopril Cough Low Reaction: Cough, Pravastatin Muscle pain Medium Reaction: Muscular Pain, Quetiapine Other (See comments) Low 06/05/2024 Hallucinations, insomnia Simvastatin Muscle pain Medium Reaction: Muscular Pain, Lnbzxdi-Vjt-Kee Reductase Inhibitors Muscle pain,Other (See comments) Medium 10/03/2015 Pt reports leg weakness/heavine ss when taking zocor. 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 Bradycardia 08/07/2017 Assessment & Plan (08/07/2017 5:58 PM 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): Asymptomatic bradycardia, on low-dose metoprolol which may eventually need to be reduced or discontinued. Traumatic subdural hematoma of neuraxis 10/15/19 17 Overview (12/28/2016): Traumatic subdural hematoma without loss of consciousness, sequela Statin intolerance 10/15/2016 Overview (12/28/2016): Statin intolerance Essential hypertension 07/20/2013 Overview (12/28/2016): Hypertension Assessment & Plan (08/07/2017 5:57 PM 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): Hypertension is not under good [...] HYPERLIPIDEMIA Assessment & Plan (08/07/2017 6:03 PM 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): Has refued further attempts at statin therapy. History of coronary artery bypass surgery 2009 Overview (12/26/2016): AORTOCORONARY BYPASS Coronary arteriosclerosis in [place] artery 12/20 Overview (08/07/2017): CRNRY ATHRSCL NATVE VSSL 2009: Non STEMI and CABG x3 (HOBSON to the LAD, sequential RA to OM and D1) Assessment & Plan (08/07/2017 6:00 PM 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): 2009: Non STEMI and CABG [...] 03/04/2018 Assessment & Plan (08/07/2017 5:58 PM 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): Patient is going to have knee surgery soon and needs preoperative clearance. Coronary artery disease appears stable. Low risk for cardiac event with proposed surgery. 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/2009 03/25/2023 Overview (12/28/2016): SUBENDO INFARCT, SUBSEQ Encounters Date Type Department Care Team Description 03/16/2025 2:30 PM CDT Office Visit [facility] Medical [facility] Cardiology [address] [place] [address] [address] [place] [phone] Mando Luna MD Persistent atrial fibrillation (HCC) (Primary Dx); Coronary arteriosclerosis in [place] artery; Chronic anticoagulation; Nonrheumatic aortic (valve) stenosis; Cardiomyopathy, unspecified type (HCC) 03/16/2025 Orders Only [facility] Medical [facility] Cardiology [address] [place] [address] [address] [place] [phone] ProviderTaylor MD 03/01/2025 Telephone [facility] Cardiology [address] [address] [address] [place] [phone] Mando Luna MD 01/19/2025 Telephone [facility] Cardiology [address] [address] [place] [phone] Mando Luna MD from Last 3 Months [...] on file Legal Sex Male 8:49 AM 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 Gender Identity Not on file Sexual Orientation Not on file Obstetrics History Last Filed Vital Signs Vital Sign Reading Time Taken Comments Blood Pressure 138/70 03/16/2025 2:40 PM CDT Pulse 88 03/16/2025 2:40 PM CDT Temperature 36.3 C (97.4 F) 09/22/2024 1:04 PM 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 Respiratory Rate 18 09/22/2024 1:04 PM 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 Oxygen Saturation 97% 03/16/2025 2:40 [...] 09/01/2025 09/01/2024 Medical Devices Implanted Type Area Tube Heater Device Identifier Shelf Expiration Date Model / Serial / Lot Clear [employer] 1.32mm 4.8mm Modify Ear T Tube Ventilation Ultrasil [employer] Blue [id number] - [id number] Implanted:Qty: 1 on 09/22/2024 by Laura Oakes DO at [facility] Right: Ear Clear [employer] 07/13/2034 [id number] / / [id number] Insurance MEDICARE MEDICARE [facility] MEDICARE SUPPLEMENT Care Teams Photographer News Relationship Specialty Start Date End Date Demond Stark MD PCP - General 07/23/11
--- OUTSIDE RECORDS SUMMARY | 2025-04-18 16:06 | XMS_ITS | Encounter Summary ---
Author Organization [facility] Address [address] [place] [address] Care Team Providers Care Client Renewal Specialist Name Role Phone Unavailable Primary Care Provider Unavailabl e Encounter Details Date Type Department Care Team (Late st Contact Info) Description 10/23/2023 Lab Requisition [facility] Services [address] [place] [address] [place] [address] [place] [address] Social History Tobacco Use Types Packs/Day Years Used Date Smoking Tobacco: Never Assessed Sex and Gender Information Value Date Recorded Sex Assigned at Not on file Legal Sex Male 9:[address] Gender Identity Not on file Sexual Orientation Not on file documented as of this encounter Plan of Treatment Not on file documented as of this encounter Procedures Procedure Name Priority Date/Time Associated Diagnosis Comments CBC WITH DIFFERENTIAL Routine 10/23/2023 2:[address] BASIC METABOLIC PANEL Routine 10/23/2023 2:[address] documented in this encounter Results * (ABNORMAL) CBC WITH DIFFERENTIAL (10/23/2023 2:[address]) WBC 12.7(H) 4.5 - 10.5 K/uL 10/23/2023 11:[address] [facility] RBC 4.12(L) 4.50 - 5.40 M/uL 10/23/2023 11:[address] [facility] HEMOGLOBIN 12.2(L) 13.6 - 16.5 g/dL 10/23/2023 11:[address] [facility] HEMATOCRIT 38.7(L) 40.0 - 48.0 % 10/23/2023 11:[address] [facility] MCV 94.0 82.0 - 99.0 fL 10/23/2023 11:[address] [facility] MCH 29.7 27.8 - 34.5 pg 10/23/2023 11:[address] [facility] MCHC 31.6(L) 32.5 - 35.5 g/dL 10/23/2023 11:[address] [facility] RDW 17.3(H) 11.5 - 14.5 % 10/23/2023 11:[address] [facility] PLATELETS 264 160 - 420 K/uL 10/23/2023 11:[address] [facility] MPV 9.6 8.7 - 12.7 fL 10/23/2023 11:[address] [facility] NEUTROPHILS 67 % 10/23/2023 11:[address] [facility] LYMPHOCYTES 20 % 10/23/2023 11:[address] [facility] MONOCYTES 5 % 10/23/2023 11:[address] [facility] EOSINOPHILS 8 % 10/23/2023 11:[address] [facility] BASOPHILS 1 % 10/23/2023 11:[address] [facility] NEUTROPHIL ABSOLUTE 8.50(H) 1.90 - 7.00 K/uL 10/23/2023 11:[address] [facility] LYMPHOCYTE ABSOLUTE 2.50 0.70 - 4.50 K/uL 10/23/2023 11:[address] [facility] MONOCYTE ABSOLUTE 0.60 0.10 - 1.30 K/uL 10/23/2023 11:[address] [facility] EOSINOPHIL ABSOLUTE 1.00(H) 0.00 - 0.70 K/uL 10/23/2023 11:[address] [facility] BASOPHILS ABSOLUTE 0.10 0.00 - 0.20 K/uL 10/23/2023 11:15 AM [facility] Blood Collection / Unknown 10/23/2023 2:[address] 10/23/2023 10:[address] Erik Chairez MD HEMATOLOGY ORDERABLES Final Resu lt [facility] CL[facility] [id number] [place] [address] * (ABNORMAL) BASIC METABOLIC PANEL (10/23/2023 2:[address]) SODIUM 139 136 - 145 mmol/L 10/23/2023 11:42 AM [facility] POTASSIUM 4.5 3.4 - 5.1 mmol/L 10/23/2023 11:42 AM [facility] CHLORIDE 100 98 - 107 mmol/L 10/23/2023 11:42 AM [facility] CO2 24 22 - 29 mmol/L 10/23/2023 11:42 AM [facility] CALCIUM 9.6 8.6 - 10.4 mg/dL 10/23/2023 11:42 AM [facility] BUN 36(H) 6 - 20 mg/dL 10/23/2023 11:42 AM [facility] CREATININE 0.95 0.67 - 1.17 mg/dL 10/23/2023 11:42 AM [facility] Comment:The GFR result is no t clinically significant on patients <18 or >70 years of age. GLUCOSE 86 74 - 99 mg/dL 10/23/2023 11:42 AM [facility] GFR >60 mL/min/1.7 3 sq meter 10/23/2023 11:42 AM [facility] Comment:eGFR calculated with 2020 CKD-EPI equation. Vegetarian diet, extremely high or low muscle mass, and may affect results. Cystatin C with Glomerular Filtration Rate is a suitable alternative for these patients. ANION GAP 15 8 - 16 mmol/L 10/23/2023 11:[address] [facility] Blood Collection / Unknown 10/23/2023 2:[address] 10/23/2023 10:[address] Erik Chairez MD CHEMISTRY ORDERABLES Final Resul t [facility] CLIA# [id number] [address] [place] [address] documented in this encounter Visit Diagnoses Not on filedocumented in this encounter Additional Health Concerns Infection Onset Date Last Indicated Resolved Time CRE-CP Comment:10/09/23 Klebsiella pneumoniae, Sputum 10/09/2023 10/09/2023 05/28/2024 2:37 PM C DT Multi Drug Resistant Organis m (MDRO) Comment:10/09/23 Klebsiella pneumoniae, CRE-CP organism, Sputum 10/09/2023 10/09/2023 ELEMENTARY SCIENCE TEACHER-CP Comment:10/09/23 Klebsiella pneumoniae, Sputum 10/09/2023 05/28/2024 documented as of this encounter
[2025-04-18] MEDS: PANTOPRAZOLE SODIUM IV 40 MG VIAL 80 MG IV PUSH (17:24)
[2025-04-18] MEDS: LACTATED RINGERS 1,000 ML 999 ML IV CONT (17:24)
--- NOTE | 2025-04-18 18:18 | P.HP_ITS ---
H&P: HPI History of Present Illness Date/Time: 04/18/25 18:18 Chief Complaint: Abdominal pain Narrative: this patient is an 85-year-old male patient with past medical history of diverticulitis status post G-tube placement and ostomy placement, multiple abdominal wall hernias, grade 2 diastolic dysfunction, vitamin-D deficiency, paroxysmal atrial fibrillation on Xarelto, brain bleed, hepatitis being, hypothyroidism, hyperlipidemia, hypertension, coronary artery disease status post CA and CABG and seizure disorder who comes to the emergency room with complaints of having abdominal pain with some intermittent nausea/vomiting that started 3 days ago. Patient states his pain began shortly after eating some shrimp and he thought that he had food poisoning. He has had normal output per ostomy. No adamaris hematemesis, melanous Appearing Stools or hematochezia. he presents to the emergency room tonight as his pain continues to worsen. He has been afebrile. In the emergency room workup was performed. CBC is unremarkable with a white blood cell count of 11.1 in preserved hemoglobin at 12.7 which is at or above patient's baseline. Metabolic panel showing renal function with BUN and creatinine of 32 and 1.53. This is slightly below patient's baseline. Urinalysis is negative. Coags are normal. CT of the abdomen and pelvis was performed that shows a small bowel herniation to the left lower quadrant ostomy defect and supraumbilical ventral hernia with small-bowel obstruction and mesenteric edema. there is a noted 3rd hernia into the actual ostomy site and a 4th hernia in the periumbilical region. There is mild wall thickening of the 3rd hernia into the ostomy site. Occult blood from ostomy was positive per ER physician. Patient's vital signs are stable. Emergency room physician had discussion with on-call GI, Dr. Castillo and on-call General Surgery, Dr. Kong, who advised it is okay to hold off on NG placement at this time as patient is not actively vomiting. They will consult. Patient is being admitted in the current setting in NPO status for continued evaluation and management. Review of Systems Review of Systems: All systems reviewed & are unremarkable except as noted in HPI and below PMFSH Past Medical History Medical History (Updated 04/18/25 @ 18:30 by Alina Arriola, VENTILATOR SPECIALIST-C) Diastolic heart failure History of coronary artery disease Ventral hernia Positive occult stool blood test Diarrhea Grade II diastolic dysfunction History of open sigmoidectomy Vitamin D deficiency, unspecified Paroxysmal atrial fibrillation Brain bleed Prostate CA Basal cell carcinoma Hepatitis B Prediabetes Hypothyroid Constipation GERD (gastroesophageal reflux disease) Hyperlipidemia Hypertension CAD (coronary artery disease) Myocardial infarct Seizures Surgical History Surgical History S/P hernia repair 08/02/2023 had open repair of right inguinal hernia due to 70% of the patient's small bowel contents being within the hernia, complicated by postoperative abscess requiring percutaneous drain, 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 The patient had postoperative shock and remained intubated for a prolonged period requiring tracheostomy and transfer to LTAC 10/09/2023 S/P percutaneous endoscopic gastrostomy (PEG) tube placement (09/25/23) With subsequent removal History of tracheostomy 09/13/2023 with subsequent removal History of colostomy Status post Willy procedure 09/04/23 Extensive (2 1/2 hrs) adhesiolysis, sigmoidectomy with end descending colostomy and Willy procedure Hx of local excision of skin lesion H/O arthroscopy lt knee H/O prostatectomy Hx of colonoscopy 2012 - Dr. Yen Hx of CABG 11/2009 - triple bypass surgery at [facility] Family History Family History Father Malignant neoplasm of prostate Sibling Ovarian cancer Mother , epilepsy No problems noted. Sibling No problems noted. Social History Social History Social History: Patient lives with his Cherie. He has a distant history of smoking a 12 pack per year history. He used to rarely drinks alcohol and only in moderation. Code status: Full code Surrogate decision maker: Sid () Smoking packs per day: 2 Smoking cigarettes per day: 40.0 Years smoked: 12 Smoking pack-years: 24.00 Smoking status: Former smoker Tobacco type: cigarettes Second hand tobacco smoke exposure: No Smoking end date: 09/23/70 Alcohol intake: never Alcohol use details: RARELY - 1/2 CASE BEER/YR Substance use: never Substance use type: does not use Do You Feel Safe in your Home?: Yes Lack of Transportation: No Lack of Food: Never True Current Housing: I Have Housing Concerned About Future Housing: No Difficulty Paying Gas/Electric Bills: No Difficulty Paying for Meds: No Currently Unemployed: No Education: High School Diploma/GED Difficulty w/ Childcare or Family Care: No Living arrangements: with family Occupation/Education: retired 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[employer] Gender identity (if verbalized by the patient): Male Spiritual care concerns: No Meds Home Medications and Allergies Home Medications ?Medication ?Instructions ?Recorded ?Confirmed ?Type loratadine 10 mg tablet (Claritin) 10 mg PO DAILY 05/15/22 04/13/25 History rivaroxaban 20 mg tablet (Xarelto) 20 mg PO QPM 07/30/23 04/13/25 History simethicone 62.5 mg oral strips 1 strip PO BID 12/02/23 04/13/25 History (Gas-X) aspirin 81 mg chewable tablet 1 tablet PO DAILY 01/06/24 04/13/25 History docusate sodium 100 mg capsule 100 mg PO DAILY 03/25/24 04/13/25 History (Stool Softener) pyridoxine (vitamin B6) 100 mg 100 mg PO DAILY 03/25/24 04/13/25 History tablet levothyroxine 112 mcg tablet 112 mcg PO DAILY@0630 11/06/24 04/13/25 History nystatin 100,000 unit/gram topical 1 applic topical TID #60 grams 02/15/25 04/13/25 Rx powder famotidine 20 mg tablet 20 mg PO DAILY #90 tabs 03/20/25 04/13/25 Rx losartan 25 mg tablet mg 04/05/25 04/13/25 History cephalexin 500 mg capsule 500 mg PO QID 7 days #28 caps 04/13/25 04/13/25 Rx hydrochlorothiazide 12.5 mg capsule 12.5 mg PO DAILY #90 caps 04/13/25 04/13/25 Rx Allergies Allergy/AdvReac Type Severity Reaction Status Date / Time Ehfzzaf-ASU-XnU Reductase Allergy Unknown Joint Pain Verified 04/13/25 09:02 Inhibitor (Vbrmyki-Dmp-Yab & MUSCLE Reductase Inhibitor) WEAKNESS diphenhydramine (From AdvReac Agitated Verified 04/13/25 09:02 Benadryl) halobetasol AdvReac Rash Verified 04/13/25 09:02 quetiapine (From Seroquel) AdvReac Agitated Verified 04/13/25 09:02 Vital Signs Vital Signs - 24 hr 04/18/25 14:36 04/18/25 15:47 Temperature 97.9 F 97.8 F Pulse Rate 85 84 Respiratory Rate 18 16 Blood Pressure 113/68 130/86 Pulse Oximetry 98 98 Oxygen Delivery Room Air Room Air Exam Const: General: uncomfortable Other: Mild pain distress evident. HENMT: Face/Nose/Sinus: Normal nares present Mouth: Yes moist mucous membranes Eyes: General: appearance normal, both eyes and all related structures Sclera: sclerae normal Pupils: Equal, round and reactive pupils present EOM: EOMs intact bilaterally Neck: Neck: supple and no JVD Lymphatic: lymphadenopathy not noted Resp: Effort & Inspection: normal respiratory effort Auscultation: clear to auscultation bilaterally Cardio: Rate: regular rate Rhythm: abnormal rhythm regularly irregular Heart sounds: no gallops, no murmurs and no rubs GI: Inspection: non-distended GI Palp: Yes Soft to palpation and Yes Tenderness to palpation present (GI) (Generalized) Auscultation: normal bowel sounds Other: Good amount of output per ostomy. Skin: General skin exam: normal color and no rashes or lesions noted Lesions: no lesions noted Rashes: no rashes noted Wounds: no wounds Neuro: Speech: normal speech Motor exam (neuro): 5/5 motor strength present throughout and Normal motor muscle tone present throughout Sensory Exam: normal sensation Extrem: General: normal to inspection, no edema and no pedal edema Other: Freely and equally moves all extremities well and fully without deficit. Psych: Mental Status: mental status grossly normal H&P: Results Labs Labs: Short CBC 04/18/25 Range/Units 15:30 WBC 11.1 H (4.5-10.0) K/mm3 Hgb 12.7 L (14.0-18.0) g/dL Hct 40.3 L (42.0-52.0) % Plt Count 263 (150-375) k/mm3 BMP 04/18/25 15:30 Sodium 140 Potassium 3.8 Chloride 102 Carbon Dioxide 26 BUN 32 H Creatinine 1.53 H Glucose 131 H Calcium 9.3 Liver Function 04/18/25 Range/Units 15:30 Total Bilirubin 0.4 (0.2-1.3) mg/dL AST 30 (17-59) U/L ALT 15 (6-50) U/L Alkaline Phosphatase 77 (38-126) U/L Albumin 4.3 (3.5-5.1) g/dL Urine 04/18/25 Range/Units 15:44 Urine Color Yellow (Yellow) Urine Appearance Clear (Clear) Urine pH 5.5 (5.0-9.0) Ur Specific [place] 1.031 (1.001-1.035) Urine Protein 1+ H (Negative) mg/dL Urine Glucose (UA) Negative (Negative) mg/dL Assessment and Plan Assessment and plan (1) Small bowel obstruction: Code(s): K56.609 - Unspecified intestinal obstruction, unspecified as to partial versus complete obstruction Status: Acute Assessment and Plan: * general surgery and GI both been consulted and will follow * NPO * IV fluids for hydration LR at 125 mL/hour * Protonix 40 mg IV push q.12 hours * CT scan was personally reviewed by this provider. * Okay per general surgery and GI to hold off on placement of NG tube at this time as patient is not having any active vomiting. * P.r.n. morphine 4 mg IV push Q 4 hours p.r.n. for pain * Zofran 4 mg IV push q.6 hours p.r.n. nausea * monitor trend labs and vital signs * Lactic acid pending. (2) Positive occult stool blood test: Code(s): R19.5 - Other fecal abnormalities Status: Acute Assessment and Plan: * see 1. * Hold Xarelto for tonight. (3) Ventral hernia: Code(s): K43.9 - Ventral hernia without obstruction or gangrene Status: Chronic Assessment and Plan: * As noted per CT scan four hernias are present. * General surgery and GI following (4) Paroxysmal atrial fibrillation: Code(s): I48.0 - Paroxysmal atrial fibrillation Status: Chronic Assessment and Plan: * telemetry * hold Xarelto for tonight in setting of occult stool (5) History of coronary artery disease: Code(s): Z86.79 - Personal history of other diseases of the circulatory system Status: Chronic Assessment and Plan: * chronic in nature. Status post CABG. * Telemetry (6) Diastolic heart failure: Code(s): I50.30 - Unspecified diastolic (congestive) heart failure Status: Chronic Assessment and Plan: * chronic in nature. * Daily weight * accurate intake and output * currently appears euvolemic (7) Essential (primary) hypertension: Code(s): I10 - Essential (primary) hypertension Status: Chronic Assessment and Plan: * currently stable. * Continue home medications once they have been verified. (8) Mixed hyperlipidemia: Code(s): E78.2 - Mixed hyperlipidemia Status: Chronic Assessment and Plan: * Continue home medications once verified. Quality VTE Prophylaxis VTE prophylaxis: mechanical ordered Hospitalist MIPS Advance Care Plan I have confirmed that the patient's Advanced Care Plan is present, code status is documented, or surrogate decision maker is listed in patient medical record.: Yes Medication Reconciliation I have utilized all available resources to obtain, update and review the patients current medications (includes all prescriptions, OTC, herbals, cannabis, and nutritional supplements).: Yes
--- NOTE | 2025-04-18 19:37 | PC.NURSE ---
assumed care of pt from MANUEL Lozada. pt resting on stretcher, family at bedside. pt has no complaints. informed that we are waiting on a bed for admission, no questions at this time
[2025-04-18] MEDS: LACTATED RINGERS 1,000 ML 125 ML IV CONT (19:47)
--- NOTE | 2025-04-18 20:23 | ADMGEN ---
This patient, Omar Ryan, was admitted to Medical Room 345-01. Patient/family oriented to hospital policies and general routines including ID bracelet, bed and alarms, visiting hours, pain management, procedures, bathroom and other care routines, personal items, smoking policy, room service/diet, and visiting hours. Information on how to activate the Rapid Response Team has been discussed. Patient/Family are encouraged to report perceived risks to care and to ask questions if they do not understand what they are told or what they should do.
[2025-04-18] MEDS: cefTRIAXone 1 GM in SODIUM CHLORIDE 0.9% IV 50 ML 100 ML IVPB (22:50)
[2025-04-19] VITALS (10 sets, daily range): BP systolic 144–175; BP diastolic 69–87; PULSE 55–82; RESP 18; TEMP 36.3–36.4; O2SAT 95–98
[2025-04-19] MEDS: LACTATED RINGERS 1,000 ML 125 ML IV CONT ×3 (04:04→20:49)
[2025-04-19 05:47] LABS: Hematocrit 36.9 % (42.0-52.0); Hemoglobin 11.6 g/dL (14.0-18.0); Immature Granulocyte Percent A 0.4 % (0-0.5); Lymphocytes Absolute Auto 1.87 K/mm3 (0.9-3.2); Mean Corpuscular HGB Conc 31.4 g/dl (32-36); Mean Corpuscular Hemoglobin 30.4 pg (26-34); Mean Corpuscular Volume 96.9 fl (80-100); Nucleated Red Blood Cells Absolute Auto 0.000 K/mm3 (0.0-0.012); Nucleated Red Blood Cells Perc 0.0 % (0.0-0.2); Platelet Count Result 212 k/mm3 (150-375); Red Blood Count 3.81 M/mm3 (4.6-6.20); White Blood Count 7.1 K/mm3 (4.5-10.0)
[2025-04-19 06:12] LABS: INR 1.2; Prothrombin Time 15.2 Seconds (11.1-14.7)
[2025-04-19 06:13] LABS: Partial Thromboplastin Time 31.4 Seconds (22.3-36.8)
[2025-04-19 06:23] LABS: Alanine Aminotransferase 11 U/L (6-50); Albumin Level 3.6 g/dL (3.5-5.1); Alkaline Phosphatase 71 U/L (38-126); Anion Gap 1 mmol/L (4-12); Aspartate Amino Transferase 23 U/L (17-59); Bilirubin,Total 0.7 mg/dL (0.2-1.3); Blood Urea Nitrogen 24 mg/dL (9-20); Calcium 8.9 mg/dL (8.4-10.2); Carbon Dioxide 29 mmol/L (22-30); Chloride 104 mmol/L (98-107); Estimated CRCL calculation 41 ml/min; Estimated Glomerular Filt Rate 52; Glucose 89 mg/dL (65-110); Magnesium 2.1 mg/dL (1.6-2.3); Potassium 3.9 mmol/L (3.4-5.0); Sodium 134 mmol/L (137-145); Total Protein 7.0 g/dL (6.3-8.2)
--- NOTE | 2025-04-19 06:59 | PM.IMPN ---
Progress Note: A&P Assessment and Plan (1) Small bowel obstruction: Code(s): K56.609 - Unspecified intestinal obstruction, unspecified as to partial versus complete obstruction Status: Acute Assessment and Plan: CT abdomen/pelvis: Mild esophagitis/gastritis. Small bowel herniation into the left lower quadrant colostomy defect and a supraumbilical ventral hernia with evidence of small bowel obstruction and mesenteric edema in both locations. A third herniation of small bowel is noted back into the colostomy defect, with mild wall thickening but no significant dilation. A fourth herniation of small bowel is present in a umbilical hernia, without complication. - No NG placed as patient has no nausea/vomiting - Diet: NPO - Protonix 40 mg IV push q.12 hours - IV fluid resuscitation given the patient's NPO status: LR at 125 mL/hour - P.r.n. Anti emetics, avoid reglan - P.r.n. morphine 4 mg IV push Q 4 hours p.r.n. for pain - Monitor I&Os, vital signs, neuro status and patient is a fall risk - Monitor serum electrolytes and CBC - General surgery consulted Obstructive series ordered (2) Positive occult stool blood test: Code(s): R19.5 - Other fecal abnormalities Status: Acute Assessment and Plan: Per prior provider note patient was reporting coffee ground emesis and dark stool per ostomy Noted increased pepto bismol use which could be causing the dark stools as well Occult blood from ostomy was positive per ER physician. H/H stable, appears at baseline Hold Xarelto for tonight. Pantoprazole BID Diet: NPO DVT Px: SCDs Monitor serum electrolytes, CBC, hemoglobin/hematocrit q.8 hours. If hemoglobin drops below 7 transfuse packed red blood cells Monitor for bloody bowel movements,chest pain,SOB or dizziness/lightheadedness GI consulted plan for EGD tomorrow Continue Protonix 40 mg BID Continue holding anticoagulants (3) Ventral hernia: Code(s): K43.9 - Ventral hernia without obstruction or gangrene Status: Chronic Assessment and Plan: CT abdomen/pelvis: Mild esophagitis/gastritis. Small bowel herniation into the left lower quadrant colostomy defect and a supraumbilical ventral hernia with evidence of small bowel obstruction and mesenteric edema in both locations. A third herniation of small bowel is noted back into the colostomy defect, with mild wall thickening but no significant dilation. A fourth herniation of small bowel is present in a umbilical hernia, without complication. General surgery Consider outpatient evaluation for elective hernia repair after GI bleed has resolved. (4) Anemia: Qualifiers: Anemia type: other cause Other causes of anemia: chronic disease, other Qualified Code(s): D63.8 - Anemia in other chronic diseases classified elsewhere Code(s): D64.9 - Anemia, unspecified Status: Acute Assessment and Plan: H/H 12.7/40.3 on admission, appears at baseline GI following for concern of GI bleed will check iron panel and ferritin EGD tomorrow If no finding to explain anemia may consider outpatient colonoscopy (5) Paroxysmal atrial fibrillation: Code(s): I48.0 - Paroxysmal atrial fibrillation Status: Chronic Assessment and Plan: - Not on a rate controlling agent, heart rate remains stable - Anticoagulation: hold Xarelto for tonight in setting of occult stool - telemetry (6) Essential (primary) hypertension: Code(s): I10 - Essential (primary) hypertension Status: Chronic Assessment and Plan: Chronic, currently holding home medications as patient is NPO for SBO - hold losartan 25 mg daily and HCTZ 12.5 mg daily - Hydralazine 10 mg IV push q8H PRN for SBP > 180 - blood pressures remain stable, continue to monitor (7) History of coronary artery disease: Code(s): Z86.79 - Personal history of other diseases of the circulatory system Status: Chronic Assessment and Plan: Status post CABG. Telemetry (8) Diastolic heart failure: Code(s): I50.30 - Unspecified diastolic (congestive) heart failure Status: Chronic Assessment and Plan: Chronic, does not appear in acute exacerbation - Monitor vital signs, I&Os, BUN/creatinine, daily weights - Monitor serum electrolytes, Keep serum Potassium>4 and serum Magnesium>2 and CBC Time Spent With Patient Time with patient: 25 - 35 minutes Subjective Date/time seen: 04/19/25 06:59 Interval history: 85-year-old male patient with past medical history of diverticulitis status post G-tube placement and ostomy placement, multiple abdominal wall hernias, grade 2 diastolic dysfunction, vitamin-D deficiency, paroxysmal atrial fibrillation on Xarelto, brain bleed, hepatitis being, hypothyroidism, hyperlipidemia, hypertension, coronary artery disease status post ME and CABG and seizure disorder who comes to the hospital with complaints of having abdominal pain with some intermittent nausea/vomiting. Patient is pleasant sitting up comfortably in his bed with family at bedside. He is no longer endorsing him at emesis and denies any nausea/vomiting or abdominal pain at this time. He has no other complaints denying chest pain, shortness a breath, palpitations. Review of Systems Review of Systems: All systems reviewed & are unremarkable except as noted in HPI and below Exam Narrative: AF HR 63 RR 18 SpO2 97 BP 147/70 General: male in no acute respiratory distress who is nontoxic appearing, sitting up in bed. HEENT: Normocephalic. Atraumatic. Extraocular movement intact. Sclera clear and anicteric. No facial asymmetry. Chest: Lungs are clear to auscultation bilaterally. No wheezes or crackles. CV: Heart was iregullarly irregular rate and rhythm. Abd: Abdomen was soft. Nontender. Nondistended. Positive bowel sounds. Peg tube in place, no signs of infection. Colostomy. Hernia that is reducible. Ext: No clubbing, cyanosis, or edema. DP pulses bilaterally. Neuro: Patient is alert. Speech is clear. Objective Data Vital Signs Vital Signs: Vital Signs - 24 hr 04/18/25 14:36 04/18/25 15:47 04/18/25 16:00 Temperature 97.9 F 97.8 F 97.8 F Pulse Rate 85 84 69 Respiratory Rate 18 16 16 Blood Pressure 113/68 130/86 118/63 Pulse Oximetry 98 98 97 Oxygen Delivery Room Air Room Air Fraction of Inspired Oxygen 04/18/25 17:00 04/18/25 18:00 04/18/25 18:30 Temperature 97.7 F 97.9 F 97.9 F Pulse Rate 66 72 59 L Respiratory Rate 16 18 16 Blood Pressure 145/72 H 164/85 H 163/96 H Pulse Oximetry 98 99 98 Oxygen Delivery Fraction of Inspired Oxygen 04/18/25 19:38 04/18/25 20:00 04/18/25 20:09 Temperature 98.0 F 98.1 F Pulse Rate 66 77 Respiratory Rate 14 16 Blood Pressure 163/105 H 159/102 H Pulse Oximetry 98 97 Oxygen Delivery Room Air Fraction of Inspired Oxygen 04/18/25 20:22 04/18/25 22:18 04/18/25 22:35 Temperature 97.4 F L Pulse Rate 73 93 93 Respiratory Rate 20 18 Blood Pressure 169/84 H Pulse Oximetry 95 99 Oxygen Delivery Room Air Fraction of Inspired Oxygen 21 04/19/25 00:00 04/19/25 04:00 04/19/25 06:00 Temperature 97.5 F L Pulse Rate 55 L 56 L 72 Respiratory Rate 18 Blood Pressure 147/70 H Pulse Oximetry 97 Oxygen Delivery Fraction of Inspired Oxygen Intake/Output Intake/Output: Intake & Output 04/16/25 04/17/25 04/18/25 04/19/25 23:59 23:59 23:59 23:59 Intake Total 1050 1000 Output Total 250 1600 Balance 800 -600 Meds/Results Medications: Active Medications Generic Name Dose Route Start Last Admin Trade Name Freq PRN Reason Stop Dose Admin Hydralazine HCl 10 mg 04/18/25 22:37 Hydralazine Hcl 20 Mg/Ml Vial IV PUSH Q8H PRN Blood Pressure - High Lactated Ringer's 1,000 mls @ 125 mls/hr 04/18/25 18:15 04/19/25 04:04 Lr - Lactated Ringers Iv IV CONT 125 mls/hr .Q8H SUDEEP Administration Ceftriaxone Sodium 1 gm/ 50 mls @ 100 mls/hr 04/18/25 23:00 04/18/25 23:20 Sodium Chloride IVPB Infused Q24H SUDEEP Infusion Morphine Sulfate 4 mg 04/18/25 18:32 Morphine Sulfate (*Crx) 4 Mg/Ml Inj IV PUSH Q4HR PRN severe pain Ondansetron HCl 4 mg 04/18/25 18:32 Ondansetron Inj 4 Mg/2 Ml Vial IV PUSH Q6HR PRN nausea Pantoprazole Sodium 40 mg 04/19/25 09:00 Pantoprazole Sodium Iv 40 Mg Vial IV PUSH Q12HR SUDEEP Radiology Results: ITS Impressions Abdomen/Pelvis CT 04/18/25 17:31 IMPRESSION: Mild esophagitis/gastritis. Small bowel herniation into the left lower quadrant colostomy defect and a supraumbilical ventral hernia with evidence of small bowel obstruction and mesenteric edema in both locations. A third herniation of small bowel is noted back into the colostomy defect, with mild wall thickening but no significant dilation. A fourth herniation of small bowel is present in a umbilical hernia, without complication. Labs Labs: Laboratory Results - last 24 hr 04/18/25 04/18/25 04/18/25 15:30 15:44 18:44 WBC 11.1 H RBC 4.18 L Hgb 12.7 L Hct 40.3 L MCV 96.4 MCH 30.4 MCHC 31.5 L RDW 13.0 Plt Count 263 MPV 10.1 Immature Gran % (Auto) 0.5 Neut % (Auto) 69.4 Lymph % (Auto) 19.7 [place] % (Auto) 5.7 Eos % (Auto) 4.2 Baso % (Auto) 0.5 Lymph # (Auto) 2.19 [place] # (Auto) 0.6 Eos # (Auto) 0.5 H Baso # (Auto) 0.1 Abs Immat Gran (auto) 0.05 H Absolute Neuts (auto) 7.7 H Absolute Nucleated RBC 0.000 Nucleated RBC % 0.0 PT 17.1 H INR 1.4 APTT 35.8 Sodium 140 Potassium 3.8 Chloride 102 Carbon Dioxide 26 Anion Gap 12 BUN 32 H Creatinine 1.53 H Estim Creat Clear Calc 35 Estimated GFR 43 L Glucose 131 H Lactic Acid 1.0 Calcium 9.3 Magnesium Total Bilirubin 0.4 AST 30 ALT 15 Alkaline Phosphatase 77 Total Protein 8.1 Albumin 4.3 Urine Color Yellow Urine Appearance Clear Urine pH 5.5 Ur Specific [place] 1.031 Urine Protein 1+ H Urine Glucose (UA) Negative Urine Ketones Trace H Ur Blood (Man) Negative Urine Nitrate Negative Urine Bilirubin Negative Urine Urobilinogen 1.0 Leukocyte Esterase Rfl Negative Urine RBC 0-2 Urine WBC 0-5 Ur Squamous Epith Cells Occasional Urine Bacteria None seen Urine Casts 3-5 Blood Type A Negative Antibody Screen Negative 04/19/25 05:38 WBC 7.1 RBC 3.81 L Hgb 11.6 L Hct 36.9 L MCV 96.9 MCH 30.4 MCHC 31.4 L RDW 12.9 Plt Count 212 MPV 10.1 Immature Gran % (Auto) 0.4 Neut % (Auto) 57.5 Lymph % (Auto) 26.4 [place] % (Auto) 7.1 Eos % (Auto) 7.9 H Baso % (Auto) 0.7 Lymph # (Auto) 1.87 [place] # (Auto) 0.5 Eos # (Auto) 0.6 H Baso # (Auto) 0.1 Abs Immat Gran (auto) 0.03 Absolute Neuts (auto) 4.1 Absolute Nucleated RBC 0.000 Nucleated RBC % 0.0 PT 15.2 H INR 1.2 APTT 31.4 Sodium 134 L Potassium 3.9 Chloride 104 Carbon Dioxide 29 Anion Gap 1 L BUN 24 H Creatinine 1.30 Estim Creat Clear Calc 41 Estimated GFR 52 L Glucose 89 Lactic Acid Calcium 8.9 Magnesium 2.1 Total Bilirubin 0.7 AST 23 ALT 11 Alkaline Phosphatase 71 Total Protein 7.0 Albumin 3.6 Urine Color Urine Appearance Urine pH Ur Specific [place] Urine Protein Urine Glucose (UA) Urine Ketones Ur Blood (Man) Urine Nitrate Urine Bilirubin Urine Urobilinogen Leukocyte Esterase Rfl Urine RBC Urine WBC Ur Squamous Epith Cells Urine Bacteria Urine Casts Blood Type Antibody Screen Quality VTE Prophylaxis VTE prophylaxis: mechanical ordered
[2025-04-19] MEDS: PANTOPRAZOLE SODIUM IV 40 MG VIAL IV PUSH ×2 (08:07→20:49)
--- NOTE | 2025-04-19 08:26 | P.CONGI_ITS ---
Assessment and Plan Assessment and plan (1) Acute upper GI bleed: Code(s): K92.2 - Gastrointestinal hemorrhage, unspecified Status: Acute (2) Positive occult stool blood test: Code(s): R19.5 - Other fecal abnormalities Status: Acute (3) Esophagitis: Code(s): K20.90 - Esophagitis, unspecified without bleeding Status: Acute (4) Gastritis: Qualifiers: Chronicity: acute Gastritis bleeding: presence of bleeding unspecified Gastritis type: unspecified gastritis Qualified Code(s): K29.00 - Acute gastritis without bleeding Code(s): K29.70 - Gastritis, unspecified, without bleeding Status: Acute (5) Small bowel obstruction: Code(s): K56.609 - Unspecified intestinal obstruction, unspecified as to partial versus complete obstruction Status: Acute (6) Anemia: Qualifiers: Anemia type: other cause Other causes of anemia: chronic disease, other Qualified Code(s): D63.8 - Anemia in other chronic diseases classified elsewhere Code(s): D64.9 - Anemia, unspecified Status: Acute (7) Generalized abdominal pain: Code(s): R10.84 - Generalized abdominal pain Status: Acute Plan 1. Upper GI bleed/hematemesis/melena/esophagitis/gastritis/PEG tube: Hx of A-Fib on Xarelto and aspirin 81 mg daily, currently on hold. Denies Patient with pharyngeal dysphagia who had a 20 fr PEG placed 11/12/2024 and during EGD was noted to have a Schatzki's ring, very small hiatal hernia and large Zenker's diverticulum. Patient was referred to [facility] for Zenker's and had surgery December 22 and was advised to keep PEG in place even if not using it due to prior Hx of scar tissue in the stomach. On evening after eating shrimp the patient started having GI symptoms including foul tasting belches, crampy intermittent abdominal pain, nausea, vomiting and one time episode of hematemesis. Denies any nausea or vomiting since admission so NG tube was not required. His abdominal pain has resolved. Labs today show Hgb 12, Hct 37, platelets [address] 04/18/2025 showed mild esophagitis and gastritis. DDX: Peptic ulcer disease versus diverticular bleed versus small bowel AVM. * Will observe today and plan for EGD tomorrow * Continue Protonix 40 mg BID * Continue holding anticoagulants * NPO after midnight 2. SBO/generalized abdominal pain: Patient with Hx of diverticulitis S/P open sigmoidectomy with Willy procedure. Last colonoscopy in [address] 04/18/2025: Small bowel herniation into the left lower quadrant colostomy defect and a supraumbilical ventral hernia with evidence of small bowel obstruction and mesenteric edema in both locations. A third herniation of small bowel is noted back into the colostomy defect, with mild wall thickening but no significant dilation. Prior to admission patient was having foul tasting belching, nausea and vomiting which has resolved. He is passing gas through colostomy. Prior to admission patient was taking MiraLax and 2 stool softeners daily. He typically has soft bowel movements. Denies any hematochezia, diarrhea or constipation. * Surgery consulted for evaluation * symptomatically improved 3. Anemia: Patient with chronic anemia over the past few years. He was seen in the ER 04/05/2025 at which time Hgb 11.4 and Hct 37 and labs this admission shows Hgb 13-->12 and Hct 40-->37. INR 1.2. Coffee-ground emesis time 1 episode and melena since admission. * will check iron panel and ferritin * EGD tomorrow * If no finding to explain anemia may consider outpatient colonoscopy * Primary care team to continue monitoring H&H and transfuse as needed to keep HGB > 7 Thank you very much for allowing me to share in the care of this very nice patient. This report may have been done utilizing a voice recognition system. Attempts have been made to correct errors. However, there may be uncorrected grammatical, spelling, and recognition errors present. GI Consult Note Consult date/time: 04/19/25 08:26 Reason for consult: Upper GI bleed HPI: Omar Ryan is a 85 year old male with PMSH of diverticulitis with colostomy and Willy procedure, G2, CHF, CAD, AFib on Xarelto, prostate cancer status post prostatectomy, 3 vessel CABG, hepatitis-B, hypothyroidism, GERD, HLD, HTN, history of PR, seizures. He presented to the ER yesterday with complaints of coffee ground emesis and melena. GI has been consulted for upper GI bleed. Patient was seen with Cherie and daughter Rula at bedside throughout the entire visit. Patient with history of pharyngeal dysphagia and aspiration pneumonia who had a PEG placed 11/12/2024. During his EGD he was noted to have a large Zenker's diverticulum and Schatzki's ring. Patient underwent surgery for his Zenker's diverticulum at [facility] December 22 and according to the patient the doctor recommended that he keep his PEG tube in place even if not using given his prior medical history and surgical scarring. Patient started eating a regular diet the week of December and has been tolerating p.o. intake and pills well. The only thing he is using his PEG tube 4 is water flushes. Patient states that evening after eating shrimp he started having acute onset GI symptoms. At that time started generalized abdominal pain that was crampy and intermittent. Pain at its worst was rated 7-8/10. His abdominal pain has since improved but not completely resolved. Prior to admission he had nausea vomiting and a 1 time episode of coffee-ground emesis. He denies any nausea or vomiting since admission. Patient started having melena after admission. Prior to admission the patient was taking MiraLax and 2 stool softeners daily and having regular soft brown stools. He denies any increased ostomy output or bright red blood. Denies odynophagia, dysphagia, reflux, regurgitation, early satiety, appetite loss, unexplained weight loss or constipation. Patient was on Xarelto and 81 mg aspirin daily prior to admission. He denies any other NSAID use. He is a nondrinker nonsmoker and denies marijuana use. Patient's maternal grandmother had stomach cancer. ENDOSCOPY HISTORY: EGD/PE11/12/[address] Castillo for dysphagia, aspiration and Zenker's diverticulum Findings: 20 [place] citizen PEG tube placed Non obstructive Schatzki's ring present at the GE junction small hiatal hernia 1 cm in size at GE junction A single Zenker's diverticulum present in the cricopharyngeus COLONOSCOPY: 2012?? performed by Dr. Yen. Exact date of last colonoscopy could not be confirmed LABS AND STOOL STUDIES: Labs 04/19/2025: Sodium 134, potassium 3.9, BUN 24, creatinine 1.30, GFR 52, calcium 8.9, magnesium 2.1 WBC 7, Hgb 12, Hct 37, MCV 97, platelets 212, INR 1.2 Total bilirubin 0.7, AST 23, ALT 11, Alkaline Phos 71, albumin 3.6 IMAGING: CT abd/pelvis w/contrast 04/18/2025: IMPRESSION: Mild esophagitis/gastritis. Small bowel herniation into the left lower quadrant colostomy defect and a supraumbilical ventral hernia with evidence of small bowel obstruction and mesenteric edema in both locations. A third herniation of small bowel is noted back into the colostomy defect, with mild wall thickening but no significant dilation. A fourth herniation of small bowel is present in a umbilical hernia, without complication. Modified barium swallow 11/09/2024: IMPRESSION: Pharyngeal dysphagia with laryngeal penetration with aspiration during the swallow with solids but with more frequent laryngeal penetration following the swallow resulting from backflow from a large Zenker's diverticulum. Please correlate with speech pathologist findings and specific feeding recommendations. Review of Systems 2 Constitutional: Constitutional: Reports as per HPI ENT: Reports as per HPI Cardiovascular: Cardiovascular: Reports as per HPI, Denies chest pain and Denies dyspnea Respiratory: Respiratory: Denies cough and Denies dyspnea Gastrointestinal: Gastrointestinal: Reports as per HPI Musculoskeletal: Musculoskeletal: Reports as per HPI Integumentary/Breasts: Skin/Breast: Reports as per HPI Psychiatric: Psychiatric: Reports as per HPI Endocrine: Endocrine: Reports no additional endocrine complaints Hematologic/Lymphatic: Hematologic/Lymphatic: Reports no additional hematologic/lymphatic complaints [facility] Past Medical History Medical History (Updated 04/19/25 @ 10:27 by Flory Tatum APRN) Diastolic heart failure History of coronary artery disease Ventral hernia Positive occult stool blood test Diarrhea Grade II diastolic dysfunction History of open sigmoidectomy Vitamin D deficiency, unspecified Paroxysmal atrial fibrillation Brain bleed Prostate CA Basal cell carcinoma Hepatitis B Prediabetes Hypothyroid Constipation GERD (gastroesophageal reflux disease) Hyperlipidemia Hypertension CAD (coronary artery disease) Myocardial infarct Seizures Surgical History Surgical History S/P hernia repair 08/02/2023 had open repair of right inguinal hernia due to 70% of the patient's small bowel contents being within the hernia, complicated by postoperative abscess requiring percutaneous drain, 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 The patient had postoperative shock and remained intubated for a prolonged period requiring tracheostomy and transfer to LTAC 10/09/2023 S/P percutaneous endoscopic gastrostomy (PEG) tube placement (09/25/23) With subsequent removal History of tracheostomy 09/13/2023 with subsequent removal History of colostomy Status post Willy procedure 09/04/23 Extensive (2 1/2 hrs) adhesiolysis, sigmoidectomy with end descending colostomy and Willy procedure Hx of local excision of skin lesion H/O arthroscopy lt knee H/O prostatectomy Hx of colonoscopy 2012 - Dr. Yen Hx of CABG 11/2009 - triple bypass surgery at [facility] Family History Family History Father Malignant neoplasm of prostate Sibling Ovarian cancer Mother , epilepsy No problems noted. Sibling No problems noted. Social History Social History Social History: Patient lives with his Cherie. He has a distant history of smoking a 12 pack per year history. He used to rarely drinks alcohol and only in moderation. Code status: Full code Surrogate decision maker: Sid () Smoking packs per day: 2 Smoking cigarettes per day: 40.0 Years smoked: 12 Smoking pack-years: 24.00 Smoking status: Former smoker Tobacco type: cigarettes Second hand tobacco smoke exposure: No Smoking end date: 09/23/70 Alcohol intake: never Alcohol use details: RARELY - 1/2 CASE BEER/YR Substance use: never Substance use type: does not use Do You Feel Safe in your Home?: Yes Lack of Transportation: No Lack of Food: Never True Current Housing: I Have Housing Concerned About Future Housing: No Difficulty Paying Gas/Electric Bills: No Difficulty Paying for Meds: No Currently Unemployed: No Education: High School Diploma/GED Difficulty w/ Childcare or Family Care: No Living arrangements: with family Occupation/Education: retired 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[employer] Gender identity (if verbalized by the patient): Male Spiritual care concerns: No Meds Home Medications and Allergies Home Medications ?Medication ?Instructions ?Recorded ?Confirmed ?Type rivaroxaban 20 mg tablet (Xarelto) 20 mg PO QPM 07/30/23 04/18/25 History simethicone 62.5 mg oral strips 1 strip PO BID PRN gas 12/02/23 04/18/25 History (Gas-X) aspirin 81 mg chewable tablet 1 tablet PO DAILY 01/06/24 04/18/25 History docusate sodium 100 mg capsule 200 mg PO HS 03/25/24 04/18/25 History (Stool Softener) pyridoxine (vitamin B6) 100 mg 100 mg PO DAILY 03/25/24 04/18/25 History tablet levothyroxine 112 mcg tablet 112 mcg PO DAILY@0630 11/06/24 04/18/25 History nystatin 100,000 unit/gram topical 1 applic topical TID #60 grams 02/15/25 04/18/25 Rx powder famotidine 20 mg tablet 20 mg PO DAILY #90 tabs 03/20/25 04/18/25 Rx losartan 25 mg tablet 25 mg PO DAILY 04/05/25 04/18/25 History cephalexin 500 mg capsule 500 mg PO QID 7 days #28 caps 04/13/25 04/18/25 Rx hydrochlorothiazide 12.5 mg capsule 12.5 mg PO DAILY #90 caps 04/13/25 04/18/25 Rx Allergies Allergy/AdvReac Type Severity Reaction Status Date / Time Tixumep-UNA-YlO Reductase Allergy Unknown Joint Pain Verified 04/18/25 21:14 Inhibitor (Kdkumtp-Woz-Fsh & MUSCLE Reductase Inhibitor) WEAKNESS diphenhydramine (From AdvReac Agitated Verified 04/18/25 21:14 Benadryl) halobetasol AdvReac Rash Verified 04/18/25 21:14 quetiapine (From Seroquel) AdvReac Agitated Verified 04/18/25 21:14 Vital Signs Vital Signs - 24 hr 04/18/25 14:36 04/18/25 15:47 04/18/25 16:00 Temperature 97.9 F 97.8 F 97.8 F Pulse Rate 85 84 69 Respiratory Rate 18 16 16 Blood Pressure 113/68 130/86 118/63 Pulse Oximetry 98 98 97 Oxygen Delivery Room Air Room Air Fraction of Inspired Oxygen 04/18/25 17:00 04/18/25 18:00 04/18/25 18:30 Temperature 97.7 F 97.9 F 97.9 F Pulse Rate 66 72 59 L Respiratory Rate 16 18 16 Blood Pressure 145/72 H 164/85 H 163/96 H Pulse Oximetry 98 99 98 Oxygen Delivery Fraction of Inspired Oxygen 04/18/25 19:38 04/18/25 20:00 04/18/25 20:09 Temperature 98.0 F 98.1 F Pulse Rate 66 77 Respiratory Rate 14 16 Blood Pressure 163/105 H 159/102 H Pulse Oximetry 98 97 Oxygen Delivery Room Air Fraction of Inspired Oxygen 04/18/25 20:22 04/18/25 22:18 04/18/25 22:35 Temperature 97.4 F L Pulse Rate 73 93 93 Respiratory Rate 20 18 Blood Pressure 169/84 H Pulse Oximetry 95 99 Oxygen Delivery Room Air Fraction of Inspired Oxygen 21 04/19/25 00:00 04/19/25 04:00 04/19/25 06:00 Temperature 97.5 F L Pulse Rate 55 L 56 L 72 Respiratory Rate 18 Blood Pressure 147/70 H Pulse Oximetry 97 Oxygen Delivery Fraction of Inspired Oxygen Exam 2 Const: General: cooperative, healthy appearing, comfortable, no acute distress and well developed Orientation/consciousness: oriented to person, oriented to place, oriented to time and patient oriented x3 HENMT: Head: normal to inspection, normocephalic and atraumatic Mouth: Yes Normal oral and palatal mucosa present and Yes moist mucous membranes Eyes: General: appearance normal, both eyes and all related structures C onjunctivae: conjunctivae normal Sclera: sclerae normal Pupils: Equal, round and reactive pupils present Neck: Neck: normal visual inspection Chest: Chest palpation & inspection: normal inspection of the chest Resp: Effort & Inspection: normal respiratory effort and able to speak in complete sentences Auscultation: clear to auscultation bilaterally Cardio: Jugular venous distension: no JVD Rate: regular rate Rhythm: r egular rhythm Heart sounds: S1 normal heart sound present and S2 normal heart sound present GI: Inspection: distended GI Palp: Yes Soft to palpation, No Tenderness to palpation present (GI), No Guarding due to palpation present (GI), Yes No hepatosplenomegaly present and Yes Hernia present Auscultation: normal bowel sounds Rectal Exam: deferred Other: PEG tube mid upper abdomen. No signs of erythema, edema, drainage or infection Skin: General skin exam: normal color and no rashes or lesions noted Neuro: General: oriented to person, oriented to place, oriented to time and patient oriented x3 Cranial nerves: Yes Equal, round and reactive pupils present Speech: normal speech Extrem: General: normal to inspection and no clubbing, cyanosis or edema Psych: Appearance: grossly normal and well kempt Affect: normal affect Results Labs 04/19/25 05:38 04/19/25 05:38 Labs: Short CBC 04/18/25 04/19/25 Range/Units 15:30 05:38 WBC 11.1 H 7.1 (4.5-10.0) K/mm3 Hgb 12.7 L 11.6 L (14.0-18.0) g/dL Hct 40.3 L 36.9 L (42.0-52.0) % Plt Count 263 212 (150-375) k/mm3 BMP 04/18/25 04/19/25 15:30 05:38 Sodium 140 134 L Potassium 3.8 3.9 Chloride 102 104 Carbon Dioxide 26 29 BUN 32 H 24 H Creatinine 1.53 H 1.30 Glucose 131 H 89 Calcium 9.3 8.9 Liver Function 04/18/25 04/19/25 Range/Units 15:30 05:38 Total Bilirubin 0.4 0.7 (0.2-1.3) mg/dL AST 30 23 (17-59) U/L ALT 15 11 (6-50) U/L Alkaline Phosphatase 77 71 (38-126) U/L Albumin 4.3 3.6 (3.5-5.1) g/dL Urine 04/18/25 Range/Units 15:44 Urine Color Yellow (Yellow) Urine Appearance Clear (Clear) Urine pH 5.5 (5.0-9.0) Ur Specific [place] 1.031 (1.001-1.035) Urine Protein 1+ H (Negative) mg/dL Urine Glucose (UA) Negative (Negative) mg/dL
--- NOTE | 2025-04-19 09:47 | PM.CNGS ---
Assessment and Plan Assessment and plan (1) Small bowel obstruction: Code(s): K56.609 - Unspecified intestinal obstruction, unspecified as to partial versus complete obstruction Status: Acute Assessment and Plan: Patient with history of diverticulitis status post open sigmoidectomy with Willy procedure presented to the ED yesterday with diffuse abdominal, dark stools, coffee-ground emesis. Last episode of emesis was prior to Saturday, so no NG tube was placed in the ED. Abdominal pain has since resolved. Patient admits to taking Pepto-Bismol since symptom onset, which could likely be causing the darkened stools. CT demonstrated 4 separate hernias. The supraumbilical ventral hernia had evidence of small-bowel obstruction and mesenteric edema. No tenderness to palpation of patient's abdomen. Ventral hernia palpable, but does not seem to be incarcerated or strangulated. Patient has small amount of soft stool in ostomy bag. Bowel sounds present throughout abdomen. No immediate surgical intervention necessary at this time. Consider outpatient evaluation for elective hernia repair after GI bleed has resolved. (2) Acute upper GI bleed: Code(s): K92.2 - Gastrointestinal hemorrhage, unspecified Status: Acute Assessment and Plan: Patient presented with coffee-ground emesis and darkened stools, suggesting upper GI bleed. GI on board and recommending EGD for tomorrow. Continue Protonix 40 mg b.i.d. Continue to hold anticoagulation. Patient has chronic anemia. Hemoglobin 11.6 today. Continue per GI recs and follow-up with EGD results. (3) Atrial fibrillation with rapid ventricular response: Code(s): I48.91 - Unspecified atrial fibrillation Status: Acute Assessment and Plan: Xarelto being held due to concern for GI bleed. Plan Discussed patient's case and plan of care with Dr. Kong. History of Present Illness Consult details Consult date: 04/19/25 Reason for consult: other (Bowel obstruction) Requesting physician: Chele Delcid MD Narrative: Patient is an 85-year-old male with past medical history of diverticulitis (s/p G tube and ostomy placement), multiple abdominal wall hernias, grade 2 diastolic dysfunction, vitamin-D deficiency, paroxysmal AFib (on Xarelto), brain bleed, hepatitis, hypothyroidism, hyperlipidemia, hypertension, CAD (s/p AK and CABG), seizure disorder who we have been asked to see in surgical consultation for bowel obstruction. Patient states that he 1st noted coffee-ground emesis and output from G-tube on . Following day he developed diffuse abdominal pain that he described as soreness. He initially thought that this was from food poisoning from shrimp that he ate the previous night. Patient noted a lot of gas from the ostomy. Family at bedside notes that on Saturday output from ostomy was green. Yesterday, they noted that the output was black. Of note, patient has been taking Pepto Bismol since symptom onset. A CT of the abdomen/pelvis was obtained and demonstrated small bowel herniation into the left lower quadrant colostomy defect in the supraumbilical ventral hernia with evidence of small-bowel obstruction and mesenteric edema in both locations. A 3rd herniation of small bowel is noted back to the colostomy defect, with mild wall thickening but no significant dilation. A 4th herniation of small bowel is present in a umbilical hernia without complication. Family at bedside states that they were aware of a few of the hernias, but not all of them. Patient states that he has not been having any nausea or vomiting since before Saturday. Small amount of soft stool present in colostomy bag. No urinary issues. [facility] Past Medical History Medical History (Updated 04/19/25 @ 10:27 by Flory Tatum APRN) Diastolic heart failure History of coronary artery disease Ventral hernia Positive occult stool blood test Diarrhea Grade II diastolic dysfunction History of open sigmoidectomy Vitamin D deficiency, unspecified Paroxysmal atrial fibrillation Brain bleed Prostate CA Basal cell carcinoma Hepatitis B Prediabetes Hypothyroid Constipation GERD (gastroesophageal reflux disease) Hyperlipidemia Hypertension CAD (coronary artery disease) Myocardial infarct Seizures Surgical History Surgical History S/P hernia repair 08/02/2023 had open repair of right inguinal hernia due to 70% of the patient's small bowel contents being within the hernia, complicated by postoperative abscess requiring percutaneous drain, 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 The patient had postoperative shock and remained intubated for a prolonged period requiring tracheostomy and transfer to LTAC 10/09/2023 S/P percutaneous endoscopic gastrostomy (PEG) tube placement (09/25/23) With subsequent removal History of tracheostomy 09/13/2023 with subsequent removal History of colostomy Status post Willy procedure 09/04/23 Extensive (2 1/2 hrs) adhesiolysis, sigmoidectomy with end descending colostomy and Willy procedure Hx of local excision of skin lesion H/O arthroscopy lt knee H/O prostatectomy Hx of colonoscopy 2012 - Dr. Yen Hx of CABG 11/2009 - triple bypass surgery at [facility] Family History Family History Father Malignant neoplasm of prostate Sibling Ovarian cancer Mother , epilepsy No problems noted. Sibling No problems noted. Social History Social History Social History: Patient lives with his Cherie. He has a distant history of smoking a 12 pack per year history. He used to rarely drinks alcohol and only in moderation. Code status: Full code Surrogate decision maker: Sid () Smoking packs per day: 2 Smoking cigarettes per day: 40.0 Years smoked: 12 Smoking pack-years: 24.00 Smoking status: Former smoker Tobacco type: cigarettes Second hand tobacco smoke exposure: No Smoking end date: 09/23/70 Alcohol intake: never Alcohol use details: RARELY - 1/2 CASE BEER/YR Substance use: never Substance use type: does not use Do You Feel Safe in your Home?: Yes Lack of Transportation: No Lack of Food: Never True Current Housing: I Have Housing Concerned About Future Housing: No Difficulty Paying Gas/Electric Bills: No Difficulty Paying for Meds: No Currently Unemployed: No Education: High School Diploma/GED Difficulty w/ Childcare or Family Care: No Living arrangements: with family Occupation/Education: retired 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[employer] Gender identity (if verbalized by the patient): Male Spiritual care concerns: No Meds Home Medications and Allergies Home Medications ?Medication ?Instructions ?Recorded ?Confirmed ?Type rivaroxaban 20 mg tablet (Xarelto) 20 mg PO QPM 07/30/23 04/18/25 History simethicone 62.5 mg oral strips 1 strip PO BID PRN gas 12/02/23 04/18/25 History (Gas-X) aspirin 81 mg chewable tablet 1 tablet PO DAILY 01/06/24 04/18/25 History docusate sodium 100 mg capsule 200 mg PO HS 03/25/24 04/18/25 History (Stool Softener) pyridoxine (vitamin B6) 100 mg 100 mg PO DAILY 03/25/24 04/18/25 History tablet levothyroxine 112 mcg tablet 112 mcg PO DAILY@0630 11/06/24 04/18/25 History nystatin 100,000 unit/gram topical 1 applic topical TID #60 grams 02/15/25 04/18/25 Rx powder famotidine 20 mg tablet 20 mg PO DAILY #90 tabs 03/20/25 04/18/25 Rx losartan 25 mg tablet 25 mg PO DAILY 04/05/25 04/18/25 History cephalexin 500 mg capsule 500 mg PO QID 7 days #28 caps 04/13/25 04/18/25 Rx hydrochlorothiazide 12.5 mg capsule 12.5 mg PO DAILY #90 caps 04/13/25 04/18/25 Rx Allergies Allergy/AdvReac Type Severity Reaction Status Date / Time [id number]-[id number] Reductase Allergy Unknown Joint Pain Verified 04/18/25 21:14 Inhibitor (Zfrgnfx-Mdi-Ktm & MUSCLE Reductase Inhibitor) WEAKNESS diphenhydramine (From AdvReac Agitated Verified 04/18/25 21:14 Benadryl) halobetasol AdvReac Rash Verified 04/18/25 21:14 quetiapine (From Seroquel) AdvReac Agitated Verified 04/18/25 21:14 Vital Signs Vital Signs - 24 hr 04/18/25 14:36 04/18/25 15:47 04/18/25 16:00 Temperature 97.9 F 97.8 F 97.8 F Pulse Rate 85 84 69 Respiratory Rate 18 16 16 Blood Pressure 113/68 130/86 118/63 Pulse Oximetry 98 98 97 Oxygen Delivery Room Air Room Air Fraction of Inspired Oxygen 04/18/25 17:00 04/18/25 18:00 04/18/25 18:30 Temperature 97.7 F 97.9 F 97.9 F Pulse Rate 66 72 59 L Respiratory Rate 16 18 16 Blood Pressure 145/72 H 164/85 H 163/96 H Pulse Oximetry 98 99 98 Oxygen Delivery Fraction of Inspired Oxygen 04/18/25 19:38 04/18/25 20:00 04/18/25 20:09 Temperature 98.0 F 98.1 F Pulse Rate 66 77 Respiratory Rate 14 16 Blood Pressure 163/105 H 159/102 H Pulse Oximetry 98 97 Oxygen Delivery Room Air Fraction of Inspired Oxygen 04/18/25 20:22 04/18/25 22:18 04/18/25 22:35 Temperature 97.4 F L Pulse Rate 73 93 93 Respiratory Rate 20 18 Blood Pressure 169/84 H Pulse Oximetry 95 99 Oxygen Delivery Room Air Fraction of Inspired Oxygen 21 04/19/25 00:00 04/19/25 04:00 04/19/25 06:00 Temperature 97.5 F L Pulse Rate 55 L 56 L 72 Respiratory Rate 18 Blood Pressure 147/70 H Pulse Oximetry 97 Oxygen Delivery Fraction of Inspired Oxygen 04/19/25 07:40 04/19/25 08:15 04/19/25 08:15 Temperature Pulse Rate 72 Respiratory Rate Blood Pressure Pulse Oximetry 97 Oxygen Delivery Room Air Room Air Fraction of Inspired Oxygen 21 Exam Const: General: comfortable and no acute distress GI: Inspection: non-distended GI Palp: Yes Soft to palpation, No Tenderness to palpation present (GI), No Guarding due to palpation present (GI) and Yes Hernia present Auscultation: normal bowel sounds Other: Ostomy with small amount of soft stool. G-tube with no signs of surrounding infection. Visibly evident hernia to right mid abdomen. No tenderness to palpation. Bowel sounds present throughout. Results Labs 04/19/25 05:38 04/19/25 05:38 Labs: Abnormal lab results 04/18/25 04/18/25 04/19/25 Range/Units 15:30 15:44 05:38 WBC 11.1 H (4.5-10.0) K/mm3 RBC 4.18 L 3.81 L (4.6-6.20) M/mm3 Hgb 12.7 L 11.6 L (14.0-18.0) g/dL Hct 40.3 L 36.9 L (42.0-52.0) % MCHC 31.5 L 31.4 L (32-36) g/dl Eos % (Auto) 7.9 H (0-4.4) % Eos # (Auto) 0.5 H 0.6 H (0-0.3) K/mm3 Abs Immat Gran (auto) 0.05 H (0.00-0.031) K/mm3 Absolute Neuts (auto) 7.7 H (1.3-6.7) K/mm3 PT 17.1 H 15.2 H (11.1-14.7) Seconds Sodium 134 L (137-145) mmol/L Anion Gap 1 L (4-12) mmol/L BUN 32 H 24 H (9-20) mg/dL Creatinine 1.53 H (0.7-1.3) mg/dL Estimated GFR 43 L 52 L (59 - ) Glucose 131 H (65-110) mg/dL Urine Protein 1+ H (Negative) mg/dL Urine Ketones Trace H (Negative) mg/dL Diabetes panel 04/18/25 04/19/25 Range/Units 15:30 05:38 Sodium 140 134 L (137-145) mmol/L Potassium 3.8 3.9 (3.4-5.0) mmol/L Chloride 102 104 (98-107) mmol/L Carbon Dioxide 26 29 (22-30) mmol/L BUN 32 H 24 H (9-20) mg/dL Creatinine 1.53 H 1.30 (0.7-1.3) mg/dL Glucose 131 H 89 (65-110) mg/dL Calcium 9.3 8.9 (8.4-10.2) mg/dL AST 30 23 (17-59) U/L ALT 15 11 (6-50) U/L Alkaline Phosphatase 77 71 (38-126) U/L Total Protein 8.1 7.0 (6.3-8.2) g/dL Albumin 4.3 3.6 (3.5-5.1) g/dL Calcium panel 04/18/25 04/19/25 Range/Units 15:30 05:38 Calcium 9.3 8.9 (8.4-10.2) mg/dL Albumin 4.3 3.6 (3.5-5.1) g/dL Pituitary panel 04/18/25 04/19/25 Range/Units 15:30 05:38 Sodium 140 134 L (137-145) mmol/L Potassium 3.8 3.9 (3.4-5.0) mmol/L Chloride 102 104 (98-107) mmol/L Carbon Dioxide 26 29 (22-30) mmol/L BUN 32 H 24 H (9-20) mg/dL Creatinine 1.53 H 1.30 (0.7-1.3) mg/dL Glucose 131 H 89 (65-110) mg/dL Calcium 9.3 8.9 (8.4-10.2) mg/dL Adrenal panel 04/18/25 04/19/25 Range/Units 15:30 05:38 Sodium 140 134 L (137-145) mmol/L Potassium 3.8 3.9 (3.4-5.0) mmol/L Chloride 102 104 (98-107) mmol/L Carbon Dioxide 26 29 (22-30) mmol/L BUN 32 H 24 H (9-20) mg/dL Creatinine 1.53 H 1.30 (0.7-1.3) mg/dL Glucose 131 H 89 (65-110) mg/dL Calcium 9.3 8.9 (8.4-10.2) mg/dL Total Bilirubin 0.4 0.7 (0.2-1.3) mg/dL AST 30 23 (17-59) U/L ALT 15 11 (6-50) U/L Alkaline Phosphatase 77 71 (38-126) U/L Total Protein 8.1 7.0 (6.3-8.2) g/dL Albumin 4.3 3.6 (3.5-5.1) g/dL All other labs normal.
[2025-04-19] MEDS: cefTRIAXone 1 GM in SODIUM CHLORIDE 0.9% IV 50 ML 100 ML IVPB (22:44)
[2025-04-20] VITALS (9 sets, daily range): BP systolic 134–156; BP diastolic 80–98; PULSE 70–91; RESP 18–20; TEMP 36.4; O2SAT 97–100
[2025-04-20] MEDS: LACTATED RINGERS 1,000 ML 125 ML IV CONT (04:19)
[2025-04-20 06:15] LABS: Hematocrit 38.4 % (42.0-52.0); Hemoglobin 12.2 g/dL (14.0-18.0); Mean Corpuscular HGB Conc 31.8 g/dl (32-36); Mean Corpuscular Hemoglobin 30.2 pg (26-34); Mean Corpuscular Volume 95.0 fl (80-100); Platelet Count Result 235 k/mm3 (150-375); Red Blood Count 4.04 M/mm3 (4.6-6.20); White Blood Count 7.3 K/mm3 (4.5-10.0)
[2025-04-20 06:37] LABS: Iron 80 ug/dL (49-181)
[2025-04-20 06:38] LABS: Alanine Aminotransferase 11 U/L (6-50); Albumin Level 3.9 g/dL (3.5-5.1); Alkaline Phosphatase 76 U/L (38-126); Anion Gap 8 mmol/L (4-12); Aspartate Amino Transferase 26 U/L (17-59); Bilirubin,Total 0.6 mg/dL (0.2-1.3); Blood Urea Nitrogen 20 mg/dL (9-20); Calcium 9.1 mg/dL (8.4-10.2); Carbon Dioxide 28 mmol/L (22-30); Chloride 104 mmol/L (98-107); Estimated CRCL calculation 43 ml/min; Estimated Glomerular Filt Rate 55; Glucose 87 mg/dL (65-110); Potassium 3.7 mmol/L (3.4-5.0); Sodium 140 mmol/L (137-145); Total Protein 7.3 g/dL (6.3-8.2)
[2025-04-20 06:46] LABS: Percent Iron Saturation 30 % (20-50)
[2025-04-20 07:18] LABS: Ferritin 125.00 ng/mL (11.1-264)
[2025-04-20] MEDS: PANTOPRAZOLE SODIUM IV 40 MG VIAL IV PUSH (08:53)
--- NOTE | 2025-04-20 09:39 | PM.IMPN ---
Progress Note: A&P Assessment and Plan (1) Small bowel obstruction: Code(s): K56.609 - Unspecified intestinal obstruction, unspecified as to partial versus complete obstruction Status: Acute Assessment and Plan: CT abdomen/pelvis: Mild esophagitis/gastritis. Small bowel herniation into the left lower quadrant colostomy defect and a supraumbilical ventral hernia with evidence of small bowel obstruction and mesenteric edema in both locations. A third herniation of small bowel is noted back into the colostomy defect, with mild wall thickening but no significant dilation. A fourth herniation of small bowel is present in a umbilical hernia, without complication. - No NG placed as patient has no nausea/vomiting - Diet: clear liquid - Protonix 40 mg IV push q.12 hours - IV fluid resuscitation given the patient's NPO status: LR at 125 mL/hour - P.r.n. Anti emetics, avoid reglan - P.r.n. morphine 4 mg IV push Q 4 hours p.r.n. for pain - Monitor I&Os, vital signs, neuro status and patient is a fall risk - Monitor serum electrolytes and CBC - General surgery consulted Obstructive series ordered (2) Positive occult stool blood test: Code(s): R19.5 - Other fecal abnormalities Status: Acute Assessment and Plan: Per prior provider note patient was reporting coffee ground emesis and dark stool per ostomy Noted increased pepto bismol use which could be causing the dark stools as well Occult blood from ostomy was positive per ER physician. H/H stable, appears at baseline Hold Xarelto for tonight. Pantoprazole BID Diet: NPO DVT Px: SCDs Monitor serum electrolytes, CBC, hemoglobin/hematocrit q.8 hours. If hemoglobin drops below 7 transfuse packed red blood cells Monitor for bloody bowel movements,chest pain,SOB or dizziness/lightheadedness GI consulted plan for EGD Continue Protonix 40 mg BID Continue holding anticoagulants (3) Ventral hernia: Code(s): K43.9 - Ventral hernia without obstruction or gangrene Status: Chronic Assessment and Plan: CT abdomen/pelvis: Mild esophagitis/gastritis. Small bowel herniation into the left lower quadrant colostomy defect and a supraumbilical ventral hernia with evidence of small bowel obstruction and mesenteric edema in both locations. A third herniation of small bowel is noted back into the colostomy defect, with mild wall thickening but no significant dilation. A fourth herniation of small bowel is present in a umbilical hernia, without complication. General surgery Consider outpatient evaluation for elective hernia repair after GI bleed has resolved. (4) Anemia: Qualifiers: Anemia type: other cause Other causes of anemia: chronic disease, other Qualified Code(s): D63.8 - Anemia in other chronic diseases classified elsewhere Code(s): D64.9 - Anemia, unspecified Status: Acute Assessment and Plan: H/H 12.7/40.3 on admission, appears at baseline and remains stable on am labs GI following for concern of GI bleed will check iron panel and ferritin EGD tomorrow If no finding to explain anemia may consider outpatient colonoscopy (5) Paroxysmal atrial fibrillation: Code(s): I48.0 - Paroxysmal atrial fibrillation Status: Chronic Assessment and Plan: - Not on a rate controlling agent, heart rate remains stable - Anticoagulation: hold Xarelto for tonight in setting of occult stool - telemetry (6) Essential (primary) hypertension: Code(s): I10 - Essential (primary) hypertension Status: Chronic Assessment and Plan: Chronic, currently holding home medications as patient is NPO for SBO - hold losartan 25 mg daily and HCTZ 12.5 mg daily - Hydralazine 10 mg IV push q8H PRN for SBP > 180 - blood pressures remain stable, continue to monitor (7) History of coronary artery disease: Code(s): Z86.79 - Personal history of other diseases of the circulatory system Status: Chronic Assessment and Plan: Status post CABG. Telemetry (8) Diastolic heart failure: Code(s): I50.30 - Unspecified diastolic (congestive) heart failure Status: Chronic Assessment and Plan: Chronic, does not appear in acute exacerbation - Monitor vital signs, I&Os, BUN/creatinine, daily weights - Monitor serum electrolytes, Keep serum Potassium>4 and serum Magnesium>2 and CBC Subjective Date/time seen: 04/20/25 09:39 Interval history: 85-year-old male patient with past medical history of diverticulitis status post G-tube placement and ostomy placement, multiple abdominal wall hernias, grade 2 diastolic dysfunction, vitamin-D deficiency, paroxysmal atrial fibrillation on Xarelto, brain bleed, hepatitis being, hypothyroidism, hyperlipidemia, hypertension, coronary artery disease status post [place] and CABG and seizure disorder who comes to the hospital with complaints of having abdominal pain with some intermittent nausea/vomiting. Review of Systems Review of Systems: All systems reviewed & are unremarkable except as noted in HPI and below Exam Narrative: AF HR General: male in no acute respiratory distress who is nontoxic appearing, sitting up in bed. HEENT: Normocephalic. Atraumatic. Extraocular movement intact. Sclera clear and anicteric. No facial asymmetry. Chest: Lungs are clear to auscultation bilaterally. No wheezes or crackles. CV: Heart was iregullarly irregular rate and rhythm. Abd: Abdomen was soft. Nontender. Nondistended. Positive bowel sounds. Peg tube in place, no signs of infection. Colostomy. Hernia that is reducible. Ext: No clubbing, cyanosis, or edema. DP pulses bilaterally. Neuro: Patient is alert. Speech is clear. Objective Data Vital Signs Vital Signs: Vital Signs - 24 hr 04/19/25 12:00 04/19/25 14:00 04/19/25 16:00 Temperature 97.4 F L Pulse Rate 63 82 69 Respiratory Rate 18 Blood Pressure 175/87 H Pulse Oximetry 95 Oxygen Delivery 04/19/25 20:00 04/19/25 20:00 04/19/25 22:00 Temperature 97.5 F L Pulse Rate 64 65 Respiratory Rate 18 Blood Pressure 144/69 H Pulse Oximetry 98 Oxygen Delivery Room Air 04/20/25 00:00 04/20/25 04:00 04/20/25 06:00 Temperature 97.5 F L Pulse Rate 70 87 91 Respiratory Rate 18 Blood Pressure 156/86 H Pulse Oximetry 97 Oxygen Delivery 04/20/25 08:57 04/20/25 08:57 Temperature Pulse Rate 91 Respiratory Rate Blood Pressure Pulse Oximetry Oxygen Delivery Room Air Intake/Output Intake/Output: Intake & Output 04/17/25 04/18/25 04/19/25 04/20/25 23:59 23:59 23:59 23:59 Intake Total 1050 3765 937.5 Output Total 250 3550 1610 Balance 800 215 -672.5 Meds/Results Medications: Active Medications Generic Name Dose Route Start Last Admin Trade Name Freq PRN Reason Stop Dose Admin Hydralazine HCl 10 mg 04/18/25 22:37 Hydralazine Hcl 20 Mg/Ml Vial IV PUSH Q8H PRN Blood Pressure - High Lactated Ringer's 1,000 mls @ 125 mls/hr 04/18/25 18:15 04/20/25 04:19 Lr - Lactated Ringers Iv IV CONT 125 mls/hr .Q8H SUDEEP Administration Ceftriaxone Sodium 1 gm/ 50 mls @ 100 mls/hr 04/18/25 23:00 04/19/25 23:14 Sodium Chloride IVPB Infused Q24H SUDEEP Infusion Morphine Sulfate 4 mg 04/18/25 18:32 Morphine Sulfate (*Crx) 4 Mg/Ml Inj IV PUSH Q4HR PRN severe pain Ondansetron HCl 4 mg 04/18/25 18:32 Ondansetron Inj 4 Mg/2 Ml Vial IV PUSH Q6HR PRN nausea Pantoprazole Sodium 40 mg 04/19/25 09:00 04/20/25 08:53 Pantoprazole Sodium Iv 40 Mg Vial IV PUSH 40 mg Q12HR SUDEEP Administration Radiology Results: ITS Impressions Abdomen/Pelvis CT 04/18/25 17:31 IMPRESSION: Mild esophagitis/gastritis. Small bowel herniation into the left lower quadrant colostomy defect and a supraumbilical ventral hernia with evidence of small bowel obstruction and mesenteric edema in both locations. A third herniation of small bowel is noted back into the colostomy defect, with mild wall thickening but no significant dilation. A fourth herniation of small bowel is present in a umbilical hernia, without complication. Abdomen X-Ray 04/19/25 17:29 IMPRESSION: 1. Postoperative changes as detailed above. No dilated gas-filled bowel to suggest obstruction. Labs Labs: Laboratory Results - last 24 hr 04/20/25 05:41 WBC 7.3 RBC 4.04 L Hgb 12.2 L Hct 38.4 L MCV 95.0 MCH 30.2 MCHC 31.8 L RDW 12.5 Plt Count 235 MPV 10.3 Sodium 140 Potassium 3.7 Chloride 104 Carbon Dioxide 28 Anion Gap 8 BUN 20 Creatinine 1.24 Estim Creat Clear Calc 43 Estimated GFR 55 L Glucose 87 Calcium 9.1 Iron 80 TIBC 271 % Saturation 30 Ferritin 125.00 Total Bilirubin 0.6 AST 26 ALT 11 Alkaline Phosphatase 76 Total Protein 7.3 Albumin 3.9 Quality VTE Prophylaxis VTE prophylaxis: mechanical ordered
--- NOTE | 2025-04-20 10:10 | PC.NURSE ---
Patient off of unit to GI lab
--- NOTE | 2025-04-20 10:24 | WPDANESEPPF ---
Anes - Initial Pre Proc Eval Procedure: Operation Date: 04/20/25 15:00 Proposed Procedures p Esophagogastroduodenoscopy - Isrrael Martinez MD Date/Time: 04/20/25 10:24 Surgeon: Kishore Ruvalcaba MD Pre Op Diagnosis: Small-bowel obstruction, upper GI bleed Patient Data Age: 85 Gender: M Height: 1.83 m Weight: 98.2 kg Last Vital Signs Temp 36.4 C L 04/20/25 06:00 Pulse 91 04/20/25 08:57 Resp 18 04/20/25 06:00 BP 156/86 H 04/20/25 06:00 Pulse Ox 97 04/20/25 06:00 O2 Del Method Room Air 04/20/25 08:57 FiO2 21 04/19/25 07:40 Allergies Allergy/AdvReac Type Severity Reaction Status Date / Time Fgcyqgp-[id number] Reductase Allergy Unknown Joint Pain Verified 04/18/25 21:14 Inhibitor (Btfybje-Jaa-Sdw & MUSCLE Reductase Inhibitor) WEAKNESS diphenhydramine (From AdvReac Agitated Verified 04/18/25 21:14 Benadryl) halobetasol AdvReac Rash Verified 04/18/25 21:14 quetiapine (From Seroquel) AdvReac Agitated Verified 04/18/25 21:14 Home Medications ?Medication ?Instructions ?Recorded ?Confirmed ?Type rivaroxaban 20 mg tablet (Xarelto) 20 mg PO QPM 07/30/23 04/18/25 History simethicone 62.5 mg oral strips 1 strip PO BID PRN gas 12/02/23 04/18/25 History (Gas-X) aspirin 81 mg chewable tablet 1 tablet PO DAILY 01/06/24 04/18/25 History docusate sodium 100 mg capsule 200 mg PO HS 03/25/24 04/18/25 History (Stool Softener) pyridoxine (vitamin B6) 100 mg 100 mg PO DAILY 03/25/24 04/18/25 History tablet levothyroxine 112 mcg tablet 112 mcg PO DAILY@0630 11/06/24 04/18/25 History nystatin 100,000 unit/gram topical 1 applic topical TID #60 grams 02/15/25 04/18/25 Rx powder famotidine 20 mg tablet 20 mg PO DAILY #90 tabs 03/20/25 04/18/25 Rx losartan 25 mg tablet 25 mg PO DAILY 04/05/25 04/18/25 History cephalexin 500 mg capsule 500 mg PO QID 7 days #28 caps 04/13/25 04/18/25 Rx hydrochlorothiazide 12.5 mg capsule 12.5 mg PO DAILY #90 caps 04/13/25 04/18/25 Rx Laboratory Tests 04/20/25 05:41 WBC 7.3 K/mm3 (4.5-10.0) RBC 4.04 L M/mm3 (4.6-6.20) Hgb 12.2 L g/dL (14.0-18.0) Hct 38.4 L % (42.0-52.0) MCV 95.0 fl (80-100) MCH 30.2 pg (26-34) MCHC 31.8 L g/dl (32-36) RDW 12.5 % (11.5-14.5) Plt Count 235 k/mm3 (150-375) MPV 10.3 fl (7.4-10.4) Sodium 140 mmol/L (137-145) Potassium 3.7 mmol/L (3.4-5.0) Chloride 104 mmol/L (98-107) Carbon Dioxide 28 mmol/L (22-30) Anion Gap 8 mmol/L (4-12) BUN 20 mg/dL (9-20) Creatinine 1.24 mg/dL (0.7-1.3) Estim Creat Clear Calc 43 ml/min Estimated GFR 55 L (59 - ) Glucose 87 mg/dL (65-110) Calcium 9.1 mg/dL (8.4-10.2) Iron 80 ug/dL (49-181) TIBC 271 ug/dL (265-497) % Saturation 30 % (20-50) Ferritin 125.00 ng/mL (11.1-264) Total Bilirubin 0.6 mg/dL (0.2-1.3) AST 26 U/L (17-59) ALT 11 U/L (6-50) Alkaline Phosphatase 76 U/L (38-126) Total Protein 7.3 g/dL (6.3-8.2) Albumin 3.9 g/dL (3.5-5.1) Patient hx anesthesia problems: none Family hx anesthesia problems: none Results Review: All pre-operative results and documents have been reviewed as part of the pre-operative evaluation. [facility] Past Medical History Medical History Diastolic heart failure History of coronary artery disease Ventral hernia Positive occult stool blood test Diarrhea Grade II diastolic dysfunction History of open sigmoidectomy Vitamin D deficiency, unspecified Paroxysmal atrial fibrillation Brain bleed Prostate CA Basal cell carcinoma Hepatitis B Prediabetes Hypothyroid Constipation GERD (gastroesophageal reflux disease) Hyperlipidemia Hypertension CAD (coronary artery disease) Myocardial infarct Seizures Surgical History Surgical History S/P hernia repair 08/02/2023 had open repair of right inguinal hernia due to 70% of the patient's small bowel contents being within the hernia, complicated by postoperative abscess requiring percutaneous drain, 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 The patient had postoperative shock and remained intubated for a prolonged period requiring tracheostomy and transfer to LTAC 10/09/2023 S/P percutaneous endoscopic gastrostomy (PEG) tube placement (09/25/23) With subsequent removal History of tracheostomy 09/13/2023 with subsequent removal History of colostomy Status post Willy procedure 09/04/23 Extensive (2 1/2 hrs) adhesiolysis, sigmoidectomy with end descending colostomy and Willy procedure Hx of local excision of skin lesion H/O arthroscopy lt knee H/O prostatectomy Hx of colonoscopy 2012 - Dr. Yen Hx of CABG 11/2009 - triple bypass surgery at [facility] Family History Family History Father Malignant neoplasm of prostate Sibling Ovarian cancer Mother , epilepsy No problems noted. Sibling No problems noted. Social History Social History Social History: Patient lives with his Cherie. He has a distant history of smoking a 12 pack per year history. He used to rarely drinks alcohol and only in moderation. Code status: Full code Surrogate decision maker: Sid () Smoking packs per day: 2 Smoking cigarettes per day: 40.0 Years smoked: 12 Smoking pack-years: 24.00 Smoking status: Former smoker Tobacco type: cigarettes Second hand tobacco smoke exposure: No Smoking end date: 09/23/70 Alcohol intake: never Alcohol use details: RARELY - 1/2 CASE BEER/YR Substance use: never Substance use type: does not use Do You Feel Safe in your Home?: Yes Lack of Transportation: No Lack of Food: Never True Current Housing: I Have Housing Concerned About Future Housing: No Difficulty Paying Gas/Electric Bills: No Difficulty Paying for Meds: No Currently Unemployed: No Education: High School Diploma/GED Difficulty w/ Childcare or Family Care: No Living arrangements: with family Occupation/Education: retired 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 Informed Consent: The patient's anesthetic plan and its attendant risks and benefits were discussed with the patient/family/POA. Questions were solicited and answers provided to the satisfaction of the patient/family/POA.
[2025-04-20] MEDS: LACTATED RINGERS 1,000 ML 150 ML IV CONT (10:31)
--- NOTE | 2025-04-20 13:17 | P.PNGS_ITS ---
Progress Note: A&P Assessment and Plan (1) Small bowel obstruction: Code(s): K56.609 - Unspecified intestinal obstruction, unspecified as to partial versus complete obstruction Status: Acute Assessment and Plan: Abdominal x-ray yesterday demonstrated postoperative changes, but no dilated gas-filled bowel to suggest obstruction. No tenderness to palpation of patient's abdomen. Ventral hernia palpable, but does not appear to be incarcerated or strangulated. Bowel sounds present throughout abdomen. Small amount of still in colostomy bag. EGD with no major findings or signs of recent bleeding. Patient is stable for discharge from surgical standpoint. If issues arise with chronic hernias, patient can see us in outpatient clinic. (2) Acute upper GI bleed: Code(s): K92.2 - Gastrointestinal hemorrhage, unspecified Status: Acute Assessment and Plan: Patient presented with coffee-ground emesis and darkened stools, suggesting upper GI bleed. GI on board and recommending EGD for tomorrow. Continue Protonix 40 mg b.i.d. Continue to hold anticoagulation. Patient has chronic anemia. Hemoglobin 12.2 today. EGD did not show any active bleeding. (3) Atrial fibrillation with rapid ventricular response: Code(s): I48.91 - Unspecified atrial fibrillation Status: Acute Assessment and Plan: Xarelto being held due to concern for GI bleed. Consider resuming this, as there is no longer concern for GI bleed. Plan Discussed patient's case and plan of care with Dr. Kong. Subjective Subjective Date/Time Seen: 04/20/25 13:17 Patient reports: no new complaints and feels better Interval history: Patient is doing well today. EGD this morning demonstrated no major findings, no signs of recent bleeding. GI did not have any objections to discharge. Blood counts have remained stable with hemoglobin now at 12.2. Small amount of stool in colostomy bag. Patient placed on regular diet awaiting his lunch. Exam Const: General: comfortable and no acute distress GI: Inspection: non-distended GI Palp: Yes Soft to palpation, No Tenderness to palpation present (GI) and No Guarding due to palpation present (GI) Auscultation: normal bowel sounds Other: Small amount of stool in ostomy bag. Objective Data Vital Signs Vital Signs: Vital Signs - 24 hr 04/19/25 14:00 04/19/25 16:00 04/19/25 20:00 Temperature 97.4 F L Pulse Rate 82 69 Respiratory Rate 18 Blood Pressure 175/87 H Pulse Oximetry 95 Oxygen Delivery Room Air 04/19/25 20:00 04/19/25 22:00 04/20/25 00:00 Temperature 97.5 F L Pulse Rate 64 65 70 Respiratory Rate 18 Blood Pressure 144/69 H Pulse Oximetry 98 Oxygen Delivery 04/20/25 04:00 04/20/25 06:00 04/20/25 08:57 Temperature 97.5 F L Pulse Rate 87 91 Respiratory Rate 18 Blood Pressure 156/86 H Pulse Oximetry 97 Oxygen Delivery Room Air 04/20/25 08:57 04/20/25 10:29 04/20/25 11:18 Temperature 97.5 F L Pulse Rate 91 85 89 Respiratory Rate 20 20 Blood Pressure 153/98 H 134/92 H Pulse Oximetry 100 98 Oxygen Delivery Room Air Room Air 04/20/25 11:28 04/20/25 11:38 Temperature Pulse Rate 80 88 Respiratory Rate 20 20 Blood Pressure 141/93 H 142/93 H Pulse Oximetry 98 98 Oxygen Delivery Room Air Room Air Intake/Output Intake/Output: Intake & Output 04/17/25 04/18/25 04/19/25 04/20/25 23:59 23:59 23:59 23:59 Intake Total 1050 3765 1758.3 Output Total 250 3550 1610 Balance 800 215 148.3 Meds/Results Medications: Active Medications Generic Name Dose Route Start Last Admin Trade Name Freq PRN Reason Stop Dose Admin Hydralazine HCl 10 mg 04/18/25 22:37 Hydralazine Hcl 20 Mg/Ml Vial IV PUSH Q8H PRN Blood Pressure - High Lactated Ringer's 1,000 mls @ 125 mls/hr 04/18/25 18:15 04/20/25 10:05 Lr - Lactated Ringers Iv IV CONT 0 mls/hr .Q8H SUDEEP Infusion Ceftriaxone Sodium 1 gm/ 50 mls @ 100 mls/hr 04/18/25 23:00 04/19/25 23:14 Sodium Chloride IVPB Infused Q24H SUDEEP Infusion Morphine Sulfate 4 mg 04/18/25 18:32 Morphine Sulfate (*Crx) 4 Mg/Ml Inj IV PUSH Q4HR PRN severe pain Ondansetron HCl 4 mg 04/18/25 18:32 Ondansetron Inj 4 Mg/2 Ml Vial IV PUSH Q6HR PRN nausea Pantoprazole Sodium 40 mg 04/21/25 09:00 Pantoprazole 40 Mg Tablet PO QAM [facility] Radiology Results: ITS Impressions Abdomen/Pelvis CT 04/18/25 17:31 IMPRESSION: Mild esophagitis/gastritis. Small bowel herniation into the left lower quadrant colostomy defect and a supraumbilical ventral hernia with evidence of small bowel obstruction and mesenteric edema in both locations. A third herniation of small bowel is noted back into the colostomy defect, with mild wall thickening but no significant dilation. A fourth herniation of small bowel is present in a umbilical hernia, without complication. Abdomen X-Ray 04/19/25 17:29 IMPRESSION: 1. Postoperative changes as detailed above. No dilated gas-filled bowel to suggest obstruction. Labs Labs: Laboratory Results - last 24 hr 04/20/25 05:41 WBC 7.3 RBC 4.04 L Hgb 12.2 L Hct 38.4 L MCV 95.0 MCH 30.2 MCHC 31.8 L RDW 12.5 Plt Count 235 MPV 10.3 Sodium 140 Potassium 3.7 Chloride 104 Carbon Dioxide 28 Anion Gap 8 BUN 20 Creatinine 1.24 Estim Creat Clear Calc 43 Estimated GFR 55 L Glucose 87 Calcium 9.1 Iron 80 TIBC 271 % Saturation 30 Ferritin 125.00 Total Bilirubin 0.6 AST 26 ALT 11 Alkaline Phosphatase 76 Total Protein 7.3 Albumin 3.9
--- NOTE | 2025-04-20 14:42 | P.DS_ITS ---
DS: Admitting Diagnosis Discharge Date 04/20/2025 Admitting Diagnosis SBO Positive occult stool blood test Ventral hernia Anemia Afib HTN CAD Diastolic heart failure DS: Discharge Diagnosis Discharge Diagnosis (1) Small bowel obstruction: Code(s): K56.609 - Unspecified intestinal obstruction, unspecified as to partial versus complete obstruction Status: Acute (2) Positive occult stool blood test: Code(s): R19.5 - Other fecal abnormalities Status: Acute (3) Ventral hernia: Code(s): K43.9 - Ventral hernia without obstruction or gangrene Status: Chronic (4) Anemia: Qualifiers: Anemia type: other cause Other causes of anemia: chronic disease, other Qualified Code(s): D63.8 - Anemia in other chronic diseases classified elsewhere Code(s): D64.9 - Anemia, unspecified Status: Acute (5) Paroxysmal atrial fibrillation: Code(s): I48.0 - Paroxysmal atrial fibrillation Status: Chronic (6) Essential (primary) hypertension: Code(s): I10 - Essential (primary) hypertension Status: Chronic (7) History of coronary artery disease: Code(s): Z86.79 - Personal history of other diseases of the circulatory system Status: Chronic (8) Diastolic heart failure: Code(s): I50.30 - Unspecified diastolic (congestive) heart failure Status: Chronic DS: Summary Hospital Course Reason for hospitalization: SBO Positive occult stool blood test Ventral hernia Anemia Afib HTN CAD Diastolic heart failure Hospital Course: 85-year-old male patient with past medical history of diverticulitis status post G-tube placement and ostomy placement, multiple abdominal wall hernias, grade 2 diastolic dysfunction, vitamin-D deficiency, paroxysmal atrial fibrillation on Xarelto, brain bleed, hepatitis being, hypothyroidism, hyperlipidemia, hypertension, coronary artery disease status post NH and CABG and seizure disorder who presented to the hospital with complaints of having abdominal pain with some intermittent nausea/vomiting with concern of coffee-ground emesis and dark stool per ostomy. CT abdomen/pelvis: Mild esophagitis/gastritis. Small bowel herniation into the left lower quadrant colostomy defect and a supraumbilical ventral hernia with evidence of small bowel obstruction and mesenteric edema in both locations. A third herniation of small bowel is noted back into the colostomy defect, with mild wall thickening but no significant dilation. A fourth herniation of small bowel is present in a umbilical hernia, without complication. No NG was placed during admission as patient was not having any nausea or vomiting. Given the concern of SBO patient was evaluated by surgery. A repeat abdominal x-ray was performed and demonstrated no dilated gas-filled bowel to suggest obstruction thus no surgical intervention required at that time. Patient able to be discharged from surgery perspective. Given the concern a upper GI bleed GI was consulted. Hemoglobin stayed stable t hroughout admission. During admission patient was no longer endorsing coffee- ground emesis or dark stools. An EGD was performed and no acute bleeding was noted however an esophageal ring was seen. No dilation was required at time of EGD. Patient continued to tolerate regular diet denying dysphagia. Patient was able to resume his xarelto per GI and was ready for discharge for a GI perspective. Patient had no complaints at time of discharge denying any chest pain, shortness a breath, palpitations, nausea/vomiting, abdominal pain, dizziness/lightheadedness. Patient was able to ambulate throughout the room and stated that he felt as if he was back to his baseline function. Patient discharged home with family in a stable condition. He is to follow-up with his primary care provider in 1 week and the specialist as scheduled. Status at Discharge Functional status at discharge: independent ambulation Time Spent with Patient Time attestation: Total time spent providing and/or coordinating discharge services: Time spent: Greater than 30 minutes Exam Narrative: AF HR 86 RR 20 SpO2 97 BP 136/80 General: male in no acute respiratory distress who is nontoxic appearing, sitting up in bed. HEENT: Normocephalic. Atraumatic. Extraocular movement intact. Sclera clear and anicteric. No facial asymmetry. Chest: Lungs are clear to auscultation bilaterally. No wheezes or crackles. CV: Heart was irregularly irregular rate and rhythm. Abd: Abdomen was soft. Nontender. Nondistended. Positive bowel sounds. Peg tube in place, no signs of infection. Colostomy. Hernia that is reducible. Ext: No clubbing, cyanosis, or edema. DP pulses bilaterally. Neuro: Patient is alert. Speech is clear. DS: Data Data Completed and Pending Completed studies during hospitalization: Abdomen xR Abdomen/pelvis CT Labs on day of discharge: Labs from last 24 hours 04/20/25 05:41 WBC 7.3 RBC 4.04 L Hgb 12.2 L Hct 38.4 L MCV 95.0 MCH 30.2 MCHC 31.8 L RDW 12.5 Plt Count 235 MPV 10.3 Sodium 140 Potassium 3.7 Chloride 104 Carbon Dioxide 28 Anion Gap 8 BUN 20 Creatinine 1.24 Estim Creat Clear Calc 43 Estimated GFR 55 L Glucose 87 Calcium 9.1 Iron 80 TIBC 271 % Saturation 30 Ferritin 125.00 Total Bilirubin 0.6 AST 26 ALT 11 Alkaline Phosphatase 76 Total Protein 7.3 Albumin 3.9 Discharge Plan Discharge Attending physician on discharge: Javi Pisano Consulting providers: Danya Hare; Benjamin Kong; Isrrael Jhaveri Discharging Clinician: Danya Hare Anticipated Discharge Date/Time: 04/20/25 14:26 Patient Disposition: Home Activity: as tolerated Diet: as tolerated and heart healthy Discharge Instructions: Discharge disposition: Patient admitted to the hospital for concern of GI bleed and bowel obstruction Evaluated by surgery and no bowel obstruction noted as patient continues to have bowel movements per colostomy. If any issues with hernias arise, feel free to [facility] general surgery office at . Evaluated by GI and underwent an endoscopy which did not show an acute bleed Able to resume xarelto as scheduled Strict bleeding precautions since you remain on Xarelto including shaving with an electric razor, holding pressure for greater than 20 minutes for injury, protection of had with any falls, etc. Eat well balanced meals and do not over hydrate Keep active Keep an eye on your stool, should your stool be black or dark purple, you should come back to the hospital Follow up with GI in the outpatient setting, call for an appointment Monitor blood pressures Take caution while standing, rising, or moving Change positions slowly taking a break between each position change If you standing feel dizzy sit back down and take a break Encouraged to continue with yearly vaccinations Return to the emergency department if he developed sudden shortness of breath, chest pain, nausea, vomiting, upset stomach or intractable diarrhea Return to the emergency department if you develop fever greater than 100.5 Follow-up with the primary care physician within 1-2 weeks Thank you for choosing [facility] for your healthcare needs Patient Instructions: Rivaroxaban (By mouth), Gastrointestinal Bleeding (DC), Bowel Obstruction (DC) Patient Language: Greek Stand Alone Forms: General Discharge Information Follow-up/Referrals: Isrrael Martinez MD [Physician] - Call for Appointment Demond Stark MD [Primary Care Provider] - 1 Week Benjamin Kong DO [Physician] - Discharge Medications: New pantoprazole 40 mg Tablet,Delayed Release (Dr/Ec) 40 mg PO QAM Qty: 30 0RF Continued losartan 25 mg tablet 25 mg PO DAILY aspirin 81 mg tablet,chewable 1 tablet PO DAILY docusate sodium [Stool Softener] 100 mg capsule 200 mg PO HS pyridoxine (vitamin B6) 100 mg tablet 100 mg PO DAILY hydrochlorothiazide 12.5 mg capsule 12.5 mg PO DAILY Qty: 90 0RF Gas-X 62.5 mg strip 1 strip PO BID PRN (Reason: gas) Xarelto 20 mg Tablet 20 mg PO QPM Patient Comments: current GI bleed (04/18) Rx Instructions: must administer with evening meal levothyroxine 112 mcg tablet 112 mcg PO DAILY@0630 nystatin 100,000 unit/gram powder 1 applic topical TID Qty: 60 1RF Patient Comments: apply to groin famotidine 20 mg tablet 20 mg PO DAILY Qty: 90 1RF Discontinued cephalexin 500 mg capsule 500 mg PO QID 7 Days Qty: 28 0RF Patient Comments: (04/18) two doses taken today, two full days remaining after today Date of admission: 04/19/25 07:16 Primary Care Provider: Demond Stark Admitting Provider: Kishore Ruvalcaba Attending physician on admission: Kishore Ruvalcaba Condition: Stable Hospitalist MIPS Heart Failure (Exclusion) Patient has history of Heart Transplant or Left Ventricular Assistive Device?: No IF YES, STOP HERE Heart Failure (Qualifier) Patient has current or prior documentation of LVEF less than or equal to 40%, or mod/servere depressed LVSF?: No IF NO, STOP HERE
== END 2025-04-20 15:40 | disposition home or self-care (01) | DRG 389 ==
LOC: ANHED 18:15 → ANH3MEDSUR 19:29 → ANH3MED 19:49
PROVIDERS: Internal Medicine Gastroenterology; Nurse Practitioner Adult Health; Nurse Practitioner Family; Admitting Provider Internal Medicine; Emergency Provider Emergency Medicine; PCP Family Medicine; Visit Provider Student in an Organized Health Care Education/Training Program
PROC: 0DJ08ZZ Inspection of Upper Intestinal Tract, Via Natural or Artificial Opening Endoscopic (ICD-10-PCS; principal; 2025-04-20 15:00)
DX: K56.609 Unspecified intestinal obstruction, unspecified as to partial versus complete obstruction (principal); I50.32 Chronic diastolic (congestive) heart failure; N17.9 Acute kidney failure, unspecified; K43.5 Parastomal hernia without obstruction or gangrene; K43.9 Ventral hernia without obstruction or gangrene; K22.2 Esophageal obstruction; I11.0 Hypertensive heart disease with heart failure; I25.10 Atherosclerotic heart disease of native coronary artery without angina pectoris; D63.8 Anemia in other chronic diseases classified elsewhere; I48.0 Paroxysmal atrial fibrillation; K21.00 Gastro-esophageal reflux disease with esophagitis, without bleeding; E55.9 Vitamin D deficiency, unspecified; E03.9 Hypothyroidism, unspecified; E78.5 Hyperlipidemia, unspecified; G40.909 Epilepsy, unspecified, not intractable, without status epilepticus; K29.00 Acute gastritis without bleeding; I25.2 Old myocardial infarction; Z95.1 Presence of aortocoronary bypass graft; Z85.46 Personal history of malignant neoplasm of prostate; Z85.828 Personal history of other malignant neoplasm of skin; Z87.891 Personal history of nicotine dependence; Z79.01 Long term (current) use of anticoagulants; Z79.82 Long term (current) use of aspirin
CPT/HCPCS: 36415; 74018; 74177; 80053; 81001; 82728; 83540; 83550; 83605; 83735; 85025; 85027; 85610; 85730; 86850; 86900; 86901; 96361; 96365; 96374; 99285; G0378; J0696; J2003; J2470; J2704; J7120; Q9967

== ENCOUNTER 2025-04-23 12:55 | Outpatient (CLI) | payer MEDICARE, SELFPAY ==
--- OUTSIDE RECORDS SUMMARY | 2025-04-23 12:58 | XMS_ITS | Clinical Summary ---
Author Organization [facility] Facility Address [address] [place] [address] Care Team Providers Care Entry Level Marketing Representative Name Role Phone Demond Stark MD Primary Care Provider [phone] Encounters Date Type Department Care Team Description 04/07/2025 Documentation Only [facility] Alan. [address] [place] [id number] Rúal Ross MD 03/31/2025 Orders Only [facility]. [address] [place] [id number] Rula Caball[address] MA Hypertension (Primary Dx); Long-term drug therapy 03/10/2025 Documentation Only [facility]. [address] [place] [phone] Raúl Ross MD 03/02/2025 Orders Only [facility] Alan. [address] [place] [phone] Rula [address] MA Renal insufficiency (Primary Dx); Hypertension; Other proteinuria 03/02/2025 Orders Only [facility] AlanKasie [address] [place] [phone] Rula [address]all[address] MA Renal insufficiency (Primary Dx); [...] Vaccine (#1) 2025 07/24/2010, 2009 Care Teams Entry Level Marketing Representative Relationship Specialty Start Date End Date Demond Stark MD [address] [place] [address] PCP - General Family Medicine 06/04/24
--- OUTSIDE RECORDS SUMMARY | 2025-04-23 12:58 | XMS_ITS | Encounter Summary ---
Author Organization [facility] Address [address] [facility] [place] [address] Care Team Providers Care Real Estate Services Coordinator Name Role Phone Demond Stark MD Primary Care Provider [phone] Encounter Details Date Type Department Care Team (Late Contact Info) Description 06/28/2023 Lab Requisition [facility] Derm[facility] Lab [address] [facility], [place] [phone] Jaxon Anaya MD [address] [place], [place] [id number] Social History Tobacco Use Types Packs/Day Years Used Date Smoking Tobacco: Former Cigarettes Q uit: 09/23/1969 Smokeless Tobacco: Never Alcohol Use Standard Drinks/Week Comments Yes 0 (1 standard drink = 0.6 oz pur e alcohol) Sex and Gender Information Value Date Recorded Sex Assigned at Not on file Legal Sex Male 5:43 PM BAND SAW MARKER Gender Identity Not on file Sexual Orientation Not on file documented as of this encounter Plan of Treatment Upcoming Encounters Date Type Department Care Team (Late Contact Info) Description 04/29/2025 10:00 AM CDT Appointment [facility]NOSTIC RAD [address] [place] [phone] Callie Mendoza DO [address] [place] [address] [address]RD FLO[address] DO[address] 1 [place] [address] 04/29/2025 1:00 PM CDT Office Visit [facility] - Neurology [address] [facility], [place] [address] Callie Mendoza DO [address] [facility] [address] FLO[address] DO[address] 1 [place] [address] Arlen SyedchristinerigobertoVINCE-DIRECTOR RECORDS MANAGEMENT [address] [facility] 1L [place] [phone] 02/04/2026 9:00 AM CDT Office Visit [facility] - GI [address] [facility], [place] [address] Callie Mendoza DO [address] [facility] 3RD FLOOR DOOR 1 [place] [address] documented as of this encounter Procedures Procedure Name Priority Date/Time Associated Diagnosis Comments DERMATOPATHOLOGY Routine 06/26/2023 12:0 0 AM CDT documented in this encounter Results * DERMATOPATHOLOGY (06/26/2023 12:00 AM CDT) Case Report Dermatopathology Report Case: [id number] Authorizing Provider: Jaxon Anaya MD Collected: 06/26/2023 12:00 AM Ordering Location: [facility] DermPath Lab Received: 06/28/2023 09:48 AM Pathologist: Mackenzie Ureña MD Specimen: Skin, right paraspinal mid back 4:58 PM CDT DERMATOPATHOLOGY LABORATORY Final Diagnosis Specimen A. SKIN, right paraspinal mid back: EPIDERMOID CYST WITH EVIDENCE OF RUPTURE (L72.0) 4:58 PM CDT DERMATOPATHOLOGY LABORATORY at 6968 CDT Clinical History R/O Cyst 4:58 PM CDT DERMATOPATHOLOGY LABORATORY Gross Description Specimen A: Received is one formalin filled container labeled with the patient's name and designated right paraspinal mid back.The specimen consists of an ellipse measuring [id number] mm and is oriented with the suture/notch [...] characteristic determined by the Dermatopathology Laboratory at [facility], directed by Dr. Georgina Young. These tests need not be, and therefore are not, approved by the [place] Food and Drug Administration. The tests are used for clinical purposes. Billing Codes Specimen Charges Stain Charges 86978 1 3 4:58 PM CDT DERMATOPATHOLOGY LABORATORY Embedded Images 3 4:58 PM CDT DERMATOPATHOLOGY LABORATORY Pathology/Cytolog y TISSUE SPECIMEN FROM SKIN / Unknown 06/26/2023 06/28/2023 9:48 AM CDT Jaxon Anaya MD LAB - PATHOLOGY/CYTOLOGY ORD ERABLES Final Result DERMATOPATHOLOGY LABORATORY [facility] - Department of Dermatology [address], [address]rd Floor [address] [phone] documented in this encounter Visit Diagnoses Not on filedocumented in this encounter Care Teams Real Estate Services Coordinator Relationship Specialty Start Date End Date Demond Stark MD [address] [place] [address] PCP - General 10/03/15 documented as of this encounter
--- OUTSIDE RECORDS SUMMARY | 2025-04-23 12:58 | XMS_ITS | Encounter Summary ---
Author Organization [facility] Address [address] [place] [address] Care Team Providers Care Plant Wrapper Name Role Phone Unavailable Primary Care Provider Unavailabl e Encounter Details Date Type Department Care Team (Late st Contact Info) Description 10/10/[address] [facility] Laboratory Services [address] [place] [address] [place] [address] [place] [address] Social History Tobacco Use Types Packs/Day Years Used Date Smoking Tobacco: Never Assessed Sex and Gender Information Value Date Recorded Sex Assigned at Not on file Legal Sex Male 9:18 AM TERRA COTTA MOLD MAKER Gender Identity Not on file Sexual Orientation Not on file documented as of this encounter Plan of Treatment Not on file documented as of this encounter Procedures Procedure Name Priority Date/Time Associated Diagnosis Comments CARBAPENEM RESISTANT ORGANISM Routine 10/09/2023 9:30 PM TERRA COTTA MOLD MAKER SPUTUM CULTURE WITH GRAM STAIN Routine 10/09/2023 9:30 PM TERRA COTTA MOLD MAKER documented in this encounter Results * (ABNORMAL) CARBAPENEM RESISTANT ORGANISM (10/09/2023 9:30 PM TERRA COTTA MOLD MAKER) ORGANISM TESTED Klebsiella pneumoniae 10/12/2023 4:25 PM TERRA COTTA MOLD MAKER [facility] Carbapenem Resistance Gene Detected(A) Not Detected 10/12/2023 4:25 PM TERRA COTTA MOLD MAKER [facility] KPC (carbapenem-re sistance gene) by PCR DETECTED(A) Not Detected 10/12/2023 4:25 PM TERRA COTTA MOLD MAKER [facility] Sputum Collection / Unknown 10/09/2023 9:30 PM TERRA COTTA MOLD MAKER 10/10/2023 9:54 AM TERRA COTTA MOLD MAKER [facility] - 10/12/2023 4:25 PM TERRA COTTA MOLD MAKER This isolate is a carbapenem-resistant Organism (SIEBEL ARCHITECT) AND is a carbapenamase-executive producer. If inpatient, place patient in Enhanced Contact Isolation. The [employer] Xpert Carba-R PCR assay detects the presence of KPC, NDM, VIM, OXA- 48, and IMP gene sequences that induce carbapenemase production in gram negative bacteria. This test was performed using an FDA approved screening methodology. Erik Chairez MD MICROBIOLOGY - GENERAL ORDERABLE S Final Result [facility]# [id number] [address] [place] [address] * (ABNORMAL) SPUTUM CULTURE WITH GRAM STAIN (10/09/2023 9:30 PM TERRA COTTA MOLD MAKER) CULTURE KLEBSIELLA PNEUMONIAE(A) LUCINA MCG/ML 10/17/2023 10:47 AM TERRA COTTA MOLD MAKER [facility] [employer] [facility] Comment: This isolate is a Carbapenem-Resistant Organism AND is a carbapenemase executive producer (SIEBEL ARCHITECT-CP). If inpatient, place patient in Enhanced Contact Isolation. Multiple drug resistant organism (MDRO). CULTURE Absent Normal Shahrzad LUCINA MCG/ML 10/17/2023 10:47 AM [facility] [employer] [facility] GRAM STAIN Non diagnostic pattern LUCINA MCG/ML 10/17/2023 10:47 AM [facility] GRAM STAIN No WBC observed 10/17/2023 10:47 AM [facility] [employer] [facility] Sputum Collection / Unknown 10/09/2023 9:30 PM TERRA COTTA MOLD MAKER 10/10/2023 9:54 AM TERRA COTTA MOLD MAKER [facility] [employer] [facility] - 10/17/2023 10:47 AM TERRA COTTA MOLD MAKER Results called to Kelly Suarez RN, Rosalie [...] Edited Result - Final Performing Organization Address City/State/[facility] Co de Phone Number [facility]# [id number] [address] [place] [address] documented in this encounter Visit Diagnoses Not on filedocumented in this encounter Additional Health Concerns Infection Onset Date Last Indicated Resolved Time CRE-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
--- OUTSIDE RECORDS SUMMARY | 2025-04-23 12:58 | XMS_ITS | Clinical Summary ---
Author Organization [facility] Address [address] [place] [address] Phone Care Team Providers Care Ventilation Mechanic Name Role Phone Unavailable Primary Care Provider Unavailabl e Social History Tobacco Use Types Packs/Day Years Used Date Smoking Tobacco: Never Assessed Sex and Gender Information Value Date Recorded Sex Assigned at Not on file Legal Sex Male 9:18 AM ABSORPTION AND ADSORPTION ENGINEER Gender Identity Not on file Sexual [...] Klebsiella pneumoniae, CRE-CP organism, Sputum 10/09/2023 10/09/2023 SUCTION OPERATOR-CP Comment:10/09/23 Klebsiella pneumoniae, Sputum 10/09/2023 05/28/[address] [place] [address]
--- OUTSIDE RECORDS SUMMARY | 2025-04-23 12:58 | XMS_ITS | Continuity of Care Document ---
Author Organization [facility] Address [address] [place] [address] [place] [address] Phone Care Team Providers Care Sponsorship Manager Name Role Phone Karsten Mason MD Unavailable Unavailable Procedures Procedure Date Office/outpatient Visit, [facility] Advance Directives Directive Yes / No Effective Date File Name No Information Encounters Encounter Description Practice Location Reason(s) For Visit Diagnoses Date Provider Providers Copied on Encounter Office/outpat ient Visit, [facility], [id number] [place] [address] [address], [place], [place], [id number], [place] tel:[phone] [facility] No Information 4-[address] Isabella Shelley. [address] [facility], [place], [place], [id number], [place]. tel:[phone] Family History Family Member Type Diagnosis Age At Onset No Information Payers Payer name Insurance type Covered republican ID Authoriza tion(s) Medicare [facility] [id number] Social History Type Description Quantity Date Captured [...]
--- OUTSIDE RECORDS SUMMARY | 2025-04-23 12:58 | XMS_ITS | Encounter Summary ---
Author Organization [facility] Address [address] [place] [address] Care Team Providers Care Boat Dock Operator Name Role Phone Demond Stark MD Primary Care Provider [phone] Encounter Details Date Type Department Care Team (Late st Contact Info) Description 11/06/2024 Orders Only [facility] Health Information Management [address] [place] [address] Scanning, Provider Social History Tobacco Use Types [...] on file Legal Sex Male 8:49 AM METAL TILE LATHER Gender Identity Not on file Sexual Orientation [...] on filedocumented in this encounter Care Teams Boat Dock Operator Relationship Specialty Start Date End Date Demond Stark MD PCP - General 07/23/11 documented as of this encounter
--- OUTSIDE RECORDS SUMMARY | 2025-04-23 12:58 | XMS_ITS | Clinical Summary ---
Author Organization [facility] [email or web address] Address [address] [facility] [place] [address] Care Team Providers Care Job Site Supervisor Name Role Phone Demond Stark MD Primary Care Provider [phone] Source Comments [facility] [email or web address],non-owned Affiliates and Associated Physician Practices is amultiple site organization consisting of ambulatory clinics and hospital sitesin [place], [place], [place] and [place]. This disclosure is being madepursuant to the Care Everywhere program and may not contain all information available regarding this patient. Last updated 18.[facility] [email or web address] Allergies Active Allergy Reactions Criticality Noted Date [...] 07/20/2013 Overview (01/01/2025): Hypertension Coronary arteriosclerosis in [place] artery 12/20 Overview (01/01/2025): IRENE MICHAELCL NGOC VSSL 2010: Non STEMI and CABG x3 (HOBSON to the LAD, sequential RA to OM and D1) History of coronary artery bypass surgery 2009 Overview (01/01/2025): AORTOCORONARY BYPASS Encounters Date Type Department Care Team Description 02/05/2025 8:30 AM CDT Office Visit [facility] - GI [address] [facility] [place] [address] Callie Mendoza DO Zenker's diverticulum (Primary Dx); [...] and heating? Not hard at all 12/25/2024 [facility] - Occupational Stress [...] any time in the past 12 m [facility], were you homeless or living in a fci (including now)? 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 Male 5:43 PM BROOM STITCHER Gender Identity Not on file Sexual Orientation [...] Info) Description 04/29/2025 10:00 AM CDT Appointment [facility] DIAGNOSTIC RAD [address] [place] [address] Callie Mendoza DO [address] [facility] [address] F[address] 1 [place] [address] 04/29/2025 1:00 PM CDT Office Visit [facility] - Neurology [address] [place] [address], [place] [address] Callie MendozaDO [address] [facility] [address]RD FLOOR DO[address] [place] [address] Venus Mckinley, SUPERVISOR INDUSTRIAL GARMENT-IRON CASTER [address] [place] [address] [place] [address] 02/04/2026 9:00 AM CDT Office Visit [facility] - GI [address] [place] [address], [place] [address] Callie MendozaDO [facility] 3RD FLOOR DOOR 1 [place] [address] Health Maintenance Due Date Last Done Comments [...] On track( 025 8:41 AM CDT) Yohana Gomez, RN Note: Expected end date: Working on plan Nutritional status is maintained or improving. Interventions: Take nutritional supplements as ordered Collaborate with the clinical records coordinator Oral care Use soft toothbrushes Keep hydrated Insurance MEDICARE [facility] MEDICARE Advance Directives * Full Code (Latest Code Status on File) Date Activated Date Inactivated Comments 12/22/2024 4:39 PM 12/25/2024 7:01 PM Care Teams Job Site Supervisor Relationship Specialty Start Date End Date Demond Stark MD [address] [place] [address] PCP - General 10/03/15
--- OUTSIDE RECORDS SUMMARY | 2025-04-23 12:58 | XMS_ITS | Encounter Summary ---
Author Organization [facility] Address [address] [place] [address] Care Team Providers Care University Archivist Name Role Phone Unavailable Primary Care Provider Unavailabl e Encounter Details Date Type Department Care Team (Late st Contact Info) Description 10/10/2023 Lab Requisition [facility] Laboratory Services [address] [place] [address] [place] [address] [place] [address] Social History Tobacco Use Types Packs/Day Years Used Date Smoking Tobacco: Never Assessed Sex and Gender Information Value Date Recorded Sex Assigned at Not on file Legal Sex Male 9:18 AM POKER DEALER Gender Identity Not on file Sexual Orientation Not on file documented as of this encounter Plan of Treatment Not on file documented as of this encounter Procedures Procedure Name Priority Date/Time Associated Diagnosis Comments CBC WITH DIFFERENTIAL Routine 10/10/2023 3:30 AM POKER DEALER PTT Routine 10/10/2023 3:30 AM POKER DEALER PROTIME-INR Routine 10/10/2023 3:30 AM POKER DEALER PREALBUMIN Routine 10/10/2023 3:30 AM POKER DEALER COMPREHENSIVE METABOLIC PANEL Routine 10/10/2023 3:30 AM POKER DEALER documented in this encounter Results * PTT (10/10/2023 3:30 AM POKER DEALER) PTT 23.4 23.1 - 37.1 seconds 10/10/2023 10:14 AM POKER DEALER [facility] SERVICES [facility] Blood Collection / Unknown 10/10/2023 3:30 AM POKER DEALER 10/10/2023 9:51 AM POKER DEALER Erik Chairez MD HEMATOLOGY ORDERABLES Final Resu lt [facility] CLIA# [id number] [address] [place] [address] * (ABNORMAL) PROTIME-INR (10/10/2023 3:30 AM POKER DEALER) PROTIME 15.0(H) 11.5 - 14.7 Seconds 10/10/2023 10:14 AM POKER DEALER [facility] INR 1.2(H) 0.9 - 1.1 10/10/2023 10:14 AM POKER DEALER [facility] Blood Collection / Unknown 10/10/2023 3:30 AM POKER DEALER 10/10/2023 9:51 AM POKER DEALER Erik Chairez MD HEMATOLOGY ORDERABLES Final Resu lt [facility] [employer] [facility] CLIA# [id number] [place] [address] * PREALBUMIN (10/10/2023 3:30 AM POKER DEALER) PREALBUMIN 23 20 - 40 mg/dL 10/10/2023 2:24 PM POKER DEALER [facility] Blood Collection / Unknown 10/10/2023 3:30 AM POKER DEALER 10/10/2023 9:51 AM POKER DEALER Erik Chairez MD CHEMISTRY ORDERABLES Final Resul t [facility] [employer] [facility] CLIA# [id number] [address] [place] [address] * (ABNORMAL) CBC WITH DIFFERENTIAL (10/10/2023 3:30 AM POKER DEALER) [facility] WBC 10.1 4.5 - 10.5 K/uL 10/10/2023 11:06 AM [facility] RBC 3.85(L) 4.50 - 5.40 M/uL 10/10/2023 11:06 AM [facility] HEMOGLOBIN 11.6(L) 13.6 - 16.5 g/dL 10/10/2023 11:06 AM [facility] HEMATOCRIT 36.6(L) 40.0 - 48.0 % 10/10/2023 11:06 AM [facility] [employer] MCV 95.2 82.0 - 99.0 fL 10/10/2023 11:06 AM [facility] MCH 30.1 27.8 - 34.5 pg 10/10/2023 11:06 AM [facility] MCHC 31.6(L) 32.5 - 35.5 g/dL 10/10/2023 11:06 AM [facility] [employer] RDW 19.2(H) 11.5 - 14.5 % 10/10/2023 11:06 AM [facility] PLATELETS 250 160 - 420 K/uL 10/10/2023 11:06 AM [facility] MPV 9.8 8.7 - 12.7 fL 10/10/2023 11:06 AM [facility] NEUTROPHILS 72 % 10/10/2023 11:06 AM [facility] LYMPHOCYTES 15 % 10/10/2023 11:06 AM POKER DEALER [facility] MONOCYTES 7 % 10/10/2023 11:06 AM POKER DEALER [facility] EOSINOPHILS 5 % 10/10/2023 11:06 AM POKER DEALER [facility] BASOPHILS 0 % 10/10/2023 11:06 AM [facility] NEUTROPHIL ABSOLUTE 7.20(H) 1.90 - 7.00 K/uL 10/10/2023 11:06 AM [facility] [employer] LYMPHOCYTE ABSOLUTE 1.50 0.70 - 4.50 K/uL 10/10/2023 11:06 AM POKER DEALER [facility] MONOCYTE ABSOLUTE 0.70 0.10 - 1.30 K/uL 10/10/2023 11:06 AM POKER DEALER [facility] EOSINOPHIL ABSOLUTE 0.50 0.00 - 0.70 K/uL 10/10/2023 11:06 AM POKER DEALER [facility] BASOPHILS ABSOLUTE 0.00 0.00 - 0.20 K/uL 10/10/2023 11:06 AM POKER DEALER [facility] [employer] Blood Collection / Unknown 10/10/2023 3:30 AM POKER DEALER 10/10/2023 9:51 AM POKER DEALER us Erik Chairez MD HEMATOLOGY ORDERABLES Final Resu lt [facility] CLIA# [id number] [address] [place] [address] * (ABNORMAL) COMPREHENSIVE METABOLIC PANEL (10/10/2023 3:30 AM POKER DEALER) SODIUM 142 136 - 145 mmol/L 10/10/2023 10:49 AM [facility] [employer] POTASSIUM 4.1 3.4 - 5.1 mmol/L 10/10/2023 10:49 AM [facility] CHLORIDE 104 98 - 107 mmol/L 10/10/2023 10:49 AM [facility] CO2 23 22 - 29 mmol/L 10/10/2023 10:49 AM [facility] CALCIUM 9.4 8.6 - 10.4 mg/dL 10/10/2023 10:49 AM [facility] BUN 34(H) 6 - 20 mg/dL 10/10/2023 10:49 AM [facility] CREATININE 1.24(H) 0.67 - 1.17 mg/dL 10/10/2023 10:49 AM [facility] Comment:The GFR result is no [...] Blood Collection / Unknown 10/10/2023 3:30 AM POKER DEALER 10/10/2023 9:51 AM POKER DEALER us Erik Chairez MD CHEMISTRY ORDERABLES Final Resul t [facility] CLIA# [id number] [address] [place] [address] documented in this encounter Visit Diagnoses Not on filedocumented in this encounter Additional Health Concerns Infection Onset Date Last Indicated Resolved Time CRE-CP Comment:10/09/23 Klebsiella pneumoniae, Sputum 10/09/2023 10/09/2023 05/28/2024 2:37 PM C DT 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
--- OUTSIDE RECORDS SUMMARY | 2025-04-23 12:58 | XMS_ITS | Encounter Summary ---
Author Organization [facility] Address [address] [facility] [address] [place] [address] Care Team Providers Care Vice President Risk Management Name Role Phone Demond Stark MD Primary Care Provider [phone] Encounter Details Date Type Department Care Team (Late st Contact Info) Description 10/16/2016 Orders Only [facility] ProviderTaylor MD [address] [place], [place] [id number] Social History Tobacco Use Types Packs/Day Years Used Date Smoking Tobacco: Former Cigarettes Q uit: 09/23/1969 Alcohol Use Standard Drinks/Week Comments Yes 0 (1 standard drink = 0.6 oz pur e alcohol) Sex and Gender Information Value Date Recorded Sex Assigned at Not on file Legal Sex Male 8:49 AM WEIGHT TESTER Gender Identity Not on file Sexual [...] on filedocumented in this encounter Care Teams Vice President Risk Management Relationship Specialty Start Date End Date Demond Stark MD PCP - General 07/23/11 documented as of this encounter
--- OUTSIDE RECORDS SUMMARY | 2025-04-23 12:58 | XMS_ITS | Encounter Summary ---
Author Organization [facility] Address [address] [place] [address] Care Team Providers Care Supervisor Bottle House Cleaners Name Role Phone Demond Stark MD Primary Care Provider [phone] Encounter Details Date Type Department Care Team (Late Contact Info) Description 06/13/2023 Lab Requisition [facility] - DermPath Lab [address] [facility], [place] [phone] Jaxon Anaya MD [address] [place], [place] [id number] Social History Tobacco Use Types Packs/Day Years Used Date Smoking Tobacco: Former Cigarettes Q uit: 09/23/1969 Smokeless Tobacco: Never Alcohol Use Standard Drinks/Week Comments Yes 0 (1 standard drink = 0.6 oz pur e alcohol) Sex and Gender Information Value Date Recorded Sex Assigned at Not on file Legal Sex Male 5:43 PM DOOR CLAMPER Gender Identity Not on file Sexual Orientation Not on file documented as of this encounter Plan of Treatment Upcoming Encounters Date Type Department Care Team (Late Contact Info) Description 04/29/2025 10:00 AM CDT Appointment [facility] DIAGNOSTIC RAD [address] [place] [phone] Callie Mendoza DO [address] [place] [address] 3RD FLOOR DOOR 1 [place] [phone] 04/29/2025 1:00 PM CDT Office Visit [facility] - Neurology [address] [facility] [place] [phone] Callie Mendoza DO [address] [facility] [place] [address] F[address] [place] [address] Arlen SyedVINCE urbina-PORTFOLIO ACCOUNTANT [address] [facility] [place] 1L DIV [place] [address] 02/04/2026 9:00 AM CDT Office Visit [facility] - GI [address] [facility] [place] [address] Callie Mendoza DO [address] [facility] [place] 3RD FLOOR DOOR 1 [place] [address] documented as of this encounter Procedures Procedure Name Priority Date/Time Associated Diagnosis Comments DERMATOPATHOLOGY Routine 06/12/2023 12:0 0 AM CDT documented in this encounter Results * DERMATOPATHOLOGY (06/12/2023 12:00 AM CDT) Case Report Dermatopathology Report Case: [id number] Authorizing Provider: Jaxon Anaya MD Collected: 06/12/2023 12:00 AM Ordering Location: [facility] DermPath Lab Received: 06/13/2023 01:28 PM Pathologist: [...] specimen consists of a shave biopsy measuring [id number] mm. Jar 0. 3 3:42 PM CDT [...] characteristic determined by the Dermatopathology Laboratory at [facility], directed by Dr. Georgina Young. These tests need not be, and therefore are not, approved by the [place] Food and Drug Administration. The tests are used for clinical purposes. Billing Codes Specimen Charges Stain Charges 68891 1 78827 1 3 3:42 PM CDT DERMATOPATHOLOGY LABORATORY Embedded Images 3 3:42 PM CDT DERMATOPATHOLOGY LABORATORY Pathology/Cytolog y TISSUE SPECIMEN FROM SKIN / Unknown 06/12/2023 06/13/2023 1:28 PM CDT Jaxon Anaya MD LAB - PATHOLOGY/CYTOLOGY ORD ERABLES Final Result DERMATOPATHOLOGY LABORATORY [facility] - Department of Dermatology [facility] Medicine [address] [place] [address], [address]rd Floor [address] [phone] documented in this encounter Visit Diagnoses Not on filedocumented in this encounter Care Teams Supervisor Bottle House Cleaners Relationship Specialty Start Date End Date Demond Stark MD [address] [place] [address] PCP - General 10/03/15 documented as of this encounter
--- OUTSIDE RECORDS SUMMARY | 2025-04-23 12:58 | XMS_ITS | Clinical Summary ---
Author Organization [facility] Medical Office Building B Address [address] [place] [address] Care Team Providers Care Human Resources Benefits Administrator Name Role Phone Demond Stark MD Primary Care Provider [phone] Allergies Active Allergy Reactions Criticality Noted Date Comments Diphenhydramine Hallucinations Medium 11/27/2023 Was not able to sleep and made him more anxious Lisinopril Cough Low Reaction: Cough, Pravastatin Muscle pain Medium Reaction: Muscular Pain, Quetiapine Other (See comments) Low 06/05/2024 Hallucinations, insomnia Simvastatin Muscle pain Medium Reaction: Muscular Pain, Upobthr-Kjx-Ofv Reductase Inhibitors Muscle pain,Other (See comments) Medium 10/03/2015 Pt reports leg weakness/heavine ss when taking zocor. Medications levothyroxine (SYNTHROID) 112 mcg tablet Take 1 tablet (112 mcg total) by mouth police specialist before breakfast Active aspirin 81 mg tablet [...] (COZAAR) 50 mg tabletIndications:Co ronary arteriosclerosis in [place] artery,Cardiomyopath y, unspecified type (HCC) Take 1 tablet (50 mg total) by mouth daily 90 tablet 3 03/16/20 25 026 Active Active Problems Problem Noted Date Diagnosed Date Cardiomyopathy 03/16/2025 Nonrheumatic aortic (valve) stenosis 03/16/2025 Dysfunction of right eustachian tube 08/31/2024 Assessment & Plan (10/05/2024 10:54 AM NIGHT AUDITOR): Avoid ear cleaning techniques Avoid water to ears Follow up in 9 months for right ear tube check, earlier with ear drainage Assessment & Plan (08/31/2024 11:40 AM NIGHT AUDITOR): Right myringotomy with T-tube placement Risks and [...] 07/09/2024 Assessment & Plan (08/31/2024 11:39 AM NIGHT AUDITOR): Right myringotomy with T-tube placement Risks and [...] 08/07/2017 Assessment & Plan (08/07/2017 6:01 PM NIGHT AUDITOR): Has had elevated LFTs and a fatty liver. Bradycardia 08/07/2017 Assessment & Plan (08/07/2017 5:58 PM NIGHT AUDITOR): Asymptomatic bradycardia, on low-dose metoprolol which may eventually need to be reduced or discontinued. Traumatic subdural hematoma of neuraxis 10/15/19 17 Overview (12/28/2016): Traumatic subdural hematoma without loss of consciousness, sequela Statin intolerance 10/15/2016 Overview (12/28/2016): Statin intolerance Essential hypertension 07/20/2013 Overview (12/28/2016): Hypertension Assessment & Plan (08/07/2017 5:57 PM NIGHT AUDITOR): Hypertension is not under good control; reviewing [...] HYPERLIPIDEMIA Assessment & Plan (08/07/2017 6:03 PM NIGHT AUDITOR): Has refued further attempts at statin therapy. History of coronary artery bypass surgery 2009 Overview (12/26/2016): AORTOCORONARY BYPASS Coronary arteriosclerosis in [place] artery 12/20 Overview (08/07/2017): CRNRY ATHRSCL NATVE VSSL 2009: Non STEMI and CABG x3 (HOBSON to the LAD, sequential RA to OM and D1) Assessment & Plan (08/07/2017 6:00 PM NIGHT AUDITOR): 2009: Non STEMI and CABG x3 (HOBSON [...] 03/04/2018 Assessment & Plan (08/07/2017 5:58 PM NIGHT AUDITOR): Patient is going to have knee surgery soon and needs preoperative clearance. Coronary artery disease appears stable. Low risk for cardiac event with proposed surgery. 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/2009 03/25/2023 Overview (12/28/2016): SUBENDO INFARCT, SUBSEQ Encounters Date Type Department Care Team Description 03/16/2025 2:30 PM CDT Office Visit [facility] Medical Group Cardiology [address] [place] [phone] Mando Luna MD Persistent atrial fibrillation (HCC) (Primary Dx); Coronary arteriosclerosis in [place] artery; Chronic anticoagulation; Nonrheumatic aortic (valve) stenosis; Cardiomyopathy, unspecified type (HCC) 03/16/2025 Orders Only [facility] Medical [facility] Cardiology [address] [place] [phone] ProviderTaylor MD 03/01/2025 Telephone [facility] Medical [facility] Cardiology [address] [place] [phone] Mando Luna MD from Last 3 Months [...] disease Bypass 3 vessels Hypothyroidism Brain bleed after falling of f ladder, 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 hand, left side [...] on file Legal Sex Male 8:49 AM NIGHT AUDITOR Gender Identity Not on file Sexual Orientation Not on file Obstetrics History Last Filed Vital Signs Vital Sign Reading Time Taken Comments Blood Pressure 138/70 03/16/2025 2:40 PM CDT Pulse 88 03/16/2025 2:40 PM CDT Temperature 36.3 C (97.4 F) 09/22/2024 1:04 PM NIGHT AUDITOR Respiratory Rate 18 09/22/2024 1:04 PM NIGHT AUDITOR Oxygen Saturation 97% 03/16/2025 2:40 PM CDT [...] 09/01/2025 09/01/2024 Medical Devices Implanted Type Area Jewelry Designer Device Identifier Shelf Expiration Date Model / Serial / Lot [employer] 1.32mm 4.8mm Modify Ear T Tube Ventilation Ultrasil Sterile Blue [id number] - [id number] Implanted:Qty: 1 on 09/22/2024 by Laura Oakes DO at [facility] Right: Ear [employer] 07/13/2034 [id number] / / [id number] Insurance MEDICARE [facility] Address: [id number] [place] [address] [facility] MEDICARE SUPPLEMENT Care Teams Human Resources Benefits Administrator Relationship Specialty Start Date End Date Demond Stark MD PCP - General 07/23/11
--- OUTSIDE RECORDS SUMMARY | 2025-04-23 12:59 | XMS_ITS | Encounter Summary ---
Author Organization [facility] Address [address] [place] [address] Care Team Providers Care Form Presser Name Role Phone Unavailable Primary Care Provider Unavailabl e Encounter Details Date Type Department Care Team (Late st Contact Info) Description 10/12/2023 Lab Requisition [facility] Laboratory Services [address] [place] [address] [place] [address] [place] [address] Social History Tobacco Use Types Packs/Day Years Used Date Smoking Tobacco: Never Assessed Sex and Gender Information Value Date Recorded Sex Assigned at Not on file Legal Sex Male 9:18 AM SLIVER LAP TENDER Gender Identity Not on file Sexual Orientation Not on file documented as of this encounter Plan of Treatment Not on file documented as of this encounter Procedures Procedure Name Priority Date/Time Associated Diagnosis Comments MAGNESIUM LEVEL Routine 10/12/2023 4:00 AM SLIVER LAP TENDER RENAL FUNCTION PANEL Routine 10/12/2023 4:00 AM SLIVER LAP TENDER documented in this encounter Results * MAGNESIUM LEVEL (10/12/2023 4:00 AM SLIVER LAP TENDER) MAGNESIUM 2.3 1.6 - 2.6 mg/dL 10/12/2023 6:02 AM SLIVER LAP TENDER [facility] MyDentist [facility] Blood Collection / Unknown 10/12/2023 4:00 AM SLIVER LAP TENDER 10/12/2023 5:07 AM SLIVER LAP TENDER us Erik Chairez MD CHEMISTRY ORDERABLES Final Resul t [facility] [id number] [address] [place] [address] * (ABNORMAL) RENAL FUNCTION PANEL (10/12/2023 4:00 AM SLIVER LAP TENDER) SODIUM 139 136 - 145 mmol/L 10/12/2023 6:02 AM [facility] POTASSIUM 4.2 3.4 - 5.1 mmol/L 10/12/2023 6:02 AM [facility] CHLORIDE 102 98 - 107 mmol/L 10/12/2023 6:02 AM [facility] CO2 24 22 - 29 mmol/L 10/12/2023 6:02 AM [facility] CALCIUM 9.5 8.6 - 10.4 mg/dL 10/12/2023 6:02 AM [facility] BUN 43(H) 6 - 20 mg/dL 10/12/2023 6:02 AM [facility] CREATININE 1.20(H) 0.67 - 1.17 mg/dL 10/12/2023 6:02 AM [facility] Comment:The GFR result is no t clinically significant on patients <18 or >70 years of age. GLUCOSE 94 74 - 99 mg/dL 10/12/2023 6:02 AM [facility] ALBUMIN 3.4(L) 3.5 - 5.2 g/dL 10/12/2023 6:02 AM [facility] PHOSPHORUS 4.2 2.5 - 4.5 mg/dL 10/12/2023 6:02 AM [facility] GFR 60 mL/min/1.7 3 sq meter 10/12/2023 6:02 AM [facility] Comment:eGFR calculated with 2020 CKD-EPI equation. Vegetarian diet, extremely high or low muscle mass, and may affect results. Cystatin C with Glomerular Filtration Rate is a suitable alternative for these patients. ANION GAP 13 8 - 16 mmol/L 10/12/2023 6:02 AM [facility] Blood Collection / Unknown 10/12/2023 4:00 AM SLIVER LAP TENDER 10/12/2023 5:07 AM SLIVER LAP TENDER Erik Chairez MD CHEMISTRY ORDERABLES Final Resul t [facility] LABORATORY SERVICES [facility] CLIA# [id number] [address] [place] [address] documented in this encounter Visit Diagnoses Not on filedocumented in this encounter Additional Health Concerns Infection Onset Date Last Indicated Resolved Time CRE-CP Comment:10/09/23 Klebsiella pneumoniae, Sputum 10/09/2023 10/09/2023 05/28/2024 2:37 PM C DT 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
--- OUTSIDE RECORDS SUMMARY | 2025-04-23 12:59 | XMS_ITS | Encounter Summary ---
Author Organization [facility] Address [address] [place] [address] Care Team Providers Care Mechanical Maintenance Worker Name Role Phone Unavailable Primary Care Provider Unavailabl e Encounter Details Date Type Department Care Team (Late st Contact Info) Description 10/13/2023 Lab Requisition [facility] Laboratory Services [address] [place] [address] [place] [address] [place] [address] Social History Tobacco Use Types Packs/Day Years Used Date Smoking Tobacco: Never Assessed Sex and Gender Information Value Date Recorded Sex Assigned at Not on file Legal Sex Male 9:18 AM LEAD BLENDER Gender Identity Not on file Sexual Orientation Not on file documented as of this encounter Plan of Treatment Not on file documented as of this encounter Procedures Procedure Name Priority Date/Time Associated Diagnosis Comments MAGNESIUM LEVEL Routine 10/13/2023 4:00 AM LEAD BLENDER RENAL FUNCTION PANEL Routine 10/13/2023 4:00 AM LEAD BLENDER documented in this encounter Results * MAGNESIUM LEVEL (10/13/2023 4:00 AM LEAD BLENDER) MAGNESIUM 2.3 1.6 - 2.6 mg/dL 10/13/2023 5:59 AM LEAD BLENDER [facility] [email or web address] [facility] Blood Collection / Unknown 10/13/2023 4:00 AM LEAD BLENDER 10/13/2023 5:20 AM LEAD BLENDER us Erik Chairez MD CHEMISTRY ORDERABLES [id number] [address] [place] [address] * (ABNORMAL) RENAL FUNCTION PANEL (10/13/2023 4:00 AM LEAD BLENDER) SODIUM 138 136 - 145 mmol/L 10/13/2023 5:58 AM [facility] POTASSIUM 4.5 3.4 - 5.1 mmol/L 10/13/2023 5:58 AM [facility] CHLORIDE 100 98 - 107 mmol/L 10/13/2023 5:58 AM [facility] CO2 25 22 - 29 mmol/L 10/13/2023 5:58 AM [facility] CALCIUM 9.6 8.6 - 10.4 mg/dL 10/13/2023 5:58 AM [facility] BUN 39(H) 6 - 20 mg/dL 10/13/2023 5:58 AM [facility] CREATININE 1.09 0.67 - 1.17 mg/dL 10/13/2023 5:58 AM [facility] Comment:The GFR result is no t clinically significant on patients <18 or >70 years of age. GLUCOSE 100(H) 74 - 99 mg/dL 10/13/2023 5:58 AM [facility] ALBUMIN 3.5 3.5 - 5.2 g/dL 10/13/2023 5:58 AM [facility] PHOSPHORUS 4.8(H) 2.5 - 4.5 mg/dL 10/13/2023 5:58 AM [facility] GFR >60 mL/min/1.7 3 sq meter 10/13/2023 5:58 AM [facility] Comment:eGFR calculated with 2020 CKD-EPI equation. Vegetarian diet, extremely high or low muscle mass, and may affect results. Cystatin C with Glomerular Filtration Rate is a suitable alternative for these patients. ANION GAP 13 8 - 16 mmol/L 10/13/2023 5:58 AM [facility] Blood Collection / Unknown 10/13/2023 4:00 AM LEAD BLENDER 10/13/2023 5:20 AM LEAD BLENDER Erik Chairez MD CHEMISTRY ORDERABLES Final Resul t [facility] LABORATORY SERVICES [facility] CLIA# [id number] [address] [place] [address] documented in this encounter Visit Diagnoses Not on filedocumented in this encounter Additional Health Concerns Infection Onset Date Last Indicated Resolved Time CRE-CP Comment:10/09/23 Klebsiella pneumoniae, Sputum 10/09/2023 10/09/2023 05/28/2024 2:37 PM C DT Multi Drug Resistant Organis m (MDRO) Comment:10/09/23 Klebsiella pneumoniae, CRE-CP organism, Sputum 10/09/2023 10/09/2023 HEALTH CARE MANAGER-CP Comment:10/09/23 Klebsiella pneumoniae, Sputum 10/09/2023 05/28/2024 documented as of this encounter
--- OUTSIDE RECORDS SUMMARY | 2025-04-23 12:59 | XMS_ITS | Encounter Summary ---
Author Organization [facility] Address [address] [place] [address] Care Team Providers Care Documentation Improvement Specialist Name Role Phone Unavailable Primary Care Provider Unavailabl e Encounter Details Date Type Department Care Team (Late st Contact Info) Description 11/07/2023 Lab Requisition [facility] Laboratory Services [address] [place] [address] [place] [address] [place] [address] Social History Tobacco Use Types Packs/Day Years Used Date Smoking Tobacco: Never Assessed Sex and Gender Information Value Date Recorded Sex Assigned at Not on file Legal Sex Male 9:18 AM RN WOUND CARE Gender Identity Not on file Sexual Orientation Not on file documented as of this encounter Plan of Treatment Not on file documented as of this encounter Procedures Procedure Name Priority Date/Time Associated Diagnosis Comments CBC WITH DIFFERENTIAL Routine 11/07/2023 4:30 AM RN WOUND CARE BASIC METABOLIC PANEL Routine 11/07/2023 4:30 AM RN WOUND CARE documented in this encounter Results * (ABNORMAL) CBC WITH DIFFERENTIAL (11/07/2023 4:30 AM RN WOUND CARE) WBC 9.4 4.5 - 10.5 K/uL 11/07/2023 8:10 AM RN WOUND CARE [facility] LABORATORY SERVICES - [facility] RBC 4.06(L) 4.50 - 5.40 M/uL 11/07/2023 8:10 AM RN WOUND CARE [facility] LABORATORY [facility] HEMOGLOBIN 11.9(L) 13.6 - 16.5 g/dL 11/07/2023 8:10 AM RN WOUND CARE [facility] LABORATORY [facility] HEMATOCRIT 37.1(L) 40.0 - 48.0 % 11/07/2023 8:10 AM RN WOUND CARE [facility] LABORATORY SERVICES [facility] MCV 91.5 82.0 - 99.0 fL 11/07/2023 8:10 AM RN WOUND CARE [facility] LABORATORY SERVICES - [facility] MCH 29.4 27.8 - 34.5 pg 11/07/2023 8:10 AM RN WOUND CARE [facility] LABORATORY SERVICES [facility] MCHC 32.1(L) 32.5 - 35.5 g/dL 11/07/2023 8:10 AM RN WOUND CARE [facility] LABORATORY SERVICES [facility] RDW 16.9(H) 11.5 - 14.5 % 11/07/2023 8:10 AM RN WOUND CARE [facility] LABORATORY SERVICES [facility] PLATELETS 270 160 - 420 K/uL 11/07/2023 8:10 AM RN WOUND CARE [facility] LABORATORY SERVICES [facility] MPV 10.0 8.7 - 12.7 fL 11/07/2023 8:10 AM RN WOUND CARE [facility] LABORATORY SERVICES [facility] NEUTROPHILS 61 % 11/07/2023 8:10 AM RN WOUND CARE [facility] LABORATORY SERVICES [facility] LYMPHOCYTES 21 % 11/07/2023 8:10 AM [facility]OUND [facility] MONOCYTES 6 % 11/07/2023 8:10 AM RN WOUND CARE [facility] EOSINOPHILS 11 % 11/07/2023 8:10 AM RN WOUND CARE [facility] BASOPHILS 1 % 11/07/2023 8:10 AM RN WOUND CARE [facility] LABORATORY SERVICES [facility] NEUTROPHIL ABSOLUTE 5.70 1.90 - 7.00 K/uL 11/07/2023 8:10 AM RN WOUND CARE [facility] LABORATORY SERVICES [facility] LYMPHOCYTE ABSOLUTE 2.00 0.70 - 4.50 K/uL 11/07/2023 8:10 AM RN WOUND CARE [facility] MONOCYTE ABSOLUTE 0.60 0.10 - 1.30 K/uL 11/07/2023 8:10 AM RN WOUND CARE [facility] LABORATORY SERVICES [facility] EOSINOPHIL ABSOLUTE 1.00(H) 0.00 - 0.70 K/uL 11/07/2023 8:10 AM RN WOUND CARE [facility] LABORATORY SERVICES [facility] BASOPHILS ABSOLUTE 0.10 0.00 - 0.20 K/uL 11/07/2023 8:10 AM [facility] Blood 11/07/2023 4:30 AM RN WOUND CARE 11/07/2023 8:06 AM RN WOUND CARE us Erik Chairez MD HEMATOLOGY ORDERABLES Final Resu lt [facility] CLIA# [id number] [address] [place] [address] * (ABNORMAL) BASIC METABOLIC PANEL (11/07/2023 4:30 AM RN WOUND CARE) SODIUM 137 136 - 145 mmol/L 11/07/2023 8:41 AM [facility] POTASSIUM 4.2 3.4 - 5.1 mmol/L 11/07/2023 8:41 AM [facility] CHLORIDE 100 98 - 107 mmol/L 11/07/2023 8:41 AM [facility] CO2 22 22 - 29 mmol/L 11/07/2023 8:41 AM [facility] CALCIUM 9.9 8.6 - 10.4 mg/dL 11/07/2023 8:41 AM [facility] BUN 41(H) 6 - 20 mg/dL 11/07/2023 8:41 AM [facility] CREATININE 1.03 0.67 - 1.17 mg/dL 11/07/2023 8:41 AM [facility] Comment:The GFR result is no t clinically significant on patients <18 or >70 years of age. GLUCOSE 109(H) 74 - 99 mg/dL 11/07/2023 8:41 AM [facility] GFR >60 mL/min/1.7 3 sq meter 11/07/2023 8:41 AM [facility] Comment:eGFR calculated with 2020 CKD-EPI equation. Vegetarian diet, extremely high or low muscle mass, and may affect results. Cystatin C with Glomerular Filtration Rate is a suitable alternative for these patients. ANION GAP 15 8 - 16 mmol/L 11/07/2023 8:41 AM RN WOUND CARE [facility] LABORATORY SERVICES [facility] Blood 11/07/2023 4:30 AM RN WOUND CARE 11/07/2023 8:12 AM RN WOUND CARE Erik Chairez MD CHEMISTRY ORDERABLES Final Resul t [facility] LABORATORY [facility] CLIA# [id number] [place] [address] documented in this encounter Visit Diagnoses Not on filedocumented in this encounter Additional Health Concerns Infection Onset Date Last Indicated Resolved Time CRE-CP Comment:10/09/23 Klebsiella pneumoniae, Sputum 10/09/2023 10/09/2023 05/28/2024 2:37 PM C DT Multi Drug Resistant Organis m (MDRO) Comment:10/09/23 Klebsiella pneumoniae, CRE-CP organism, Sputum 10/09/2023 10/09/2023 BRANCH SERVICE LEADER-CP Comment:10/09/23 Klebsiella pneumoniae, Sputum 10/09/2023 05/28/2024 documented as of this encounter
--- OUTSIDE RECORDS SUMMARY | 2025-04-23 12:59 | XMS_ITS | Encounter Summary ---
Author Organization [facility] Address [address] [place] [address] Care Team Providers Care Legal Administrative Assistant Name Role Phone Unavailable Primary Care Provider Unavailabl e Encounter Details Date Type Department Care Team (Late st Contact Info) Description 10/17/2023 Lab Requisition [facility] Laboratory Services [address] [place] [address] [place] [address] [place] [address] Social History Tobacco Use Types Packs/Day Years Used Date Smoking Tobacco: Never Assessed Sex and Gender Information Value Date Recorded Sex Assigned at Not on file Legal Sex Male 9:18 AM ABSTRACTOR Gender Identity Not on file Sexual Orientation Not on file documented as of this encounter Plan of Treatment Not on file documented as of this encounter Procedures Procedure Name Priority Date/Time Associated Diagnosis Comments CBC WITH DIFFERENTIAL Routine 10/17/2023 2:15 AM ABSTRACTOR MAGNESIUM LEVEL Routine 10/17/2023 2:15 AM ABSTRACTOR RENAL FUNCTION PANEL Routine 10/17/2023 2:15 AM ABSTRACTOR documented in this encounter Results * MAGNESIUM LEVEL (10/17/2023 2:15 AM ABSTRACTOR) MAGNESIUM 2.3 1.6 - 2.6 mg/dL 10/17/2023 9:56 AM ABSTRACTOR [facility] Blood Collection / Unknown 10/17/2023 2:15 AM ABSTRACTOR 10/17/2023 9:00 AM ABSTRACTOR Erik Chairez MD CHEMISTRY ORDERABLES Final Resul t [facility] CLIA# [id number] [place] [address] * (ABNORMAL) CBC WITH DIFFERENTIAL (10/17/2023 2:15 AM ABSTRACTOR) WBC 6.7 4.5 - 10.5 K/uL 10/17/2023 9:34 AM ABSTRACTOR [facility] RBC 3.73(L) 4.50 - 5.40 M/uL 10/17/2023 9:34 AM ABSTRACTOR [facility] HEMOGLOBIN 11.1(L) 13.6 - 16.5 g/dL 10/17/2023 9:34 AM ABSTRACTOR [facility] HEMATOCRIT 35.0(L) 40.0 - 48.0 % 10/17/2023 9:34 AM ABSTRACTOR [facility] MCV 93.8 82.0 - 99.0 fL 10/17/2023 9:34 AM ABSTRACTOR [facility] MCH 29.8 27.8 - 34.5 pg 10/17/2023 9:34 AM ABSTRACTOR [facility] MCHC 31.8(L) 32.5 - 35.5 g/dL 10/17/2023 9:34 AM ABSTRACTOR [facility] RDW 17.4(H) 11.5 - 14.5 % 10/17/2023 9:34 AM ABSTRACTOR [facility] PLATELETS 214 160 - 420 K/uL 10/17/2023 9:34 AM ABSTRACTOR [facility] MPV 9.5 8.7 - 12.7 fL 10/17/2023 9:34 AM ABSTRACTOR [facility] NEUTROPHILS 50 % 10/17/2023 9:34 AM ABSTRACTOR [facility] LYMPHOCYTES 28 % 10/17/2023 9:34 AM ABSTRACTOR [facility] MONOCYTES 8 % 10/17/2023 9:34 AM ABSTRACTOR [facility] EOSINOPHILS 13 % 10/17/2023 9:34 AM ABSTRACTOR [facility] BASOPHILS 0 % 10/17/2023 9:34 AM ABSTRACTOR [facility] NEUTROPHIL ABSOLUTE 3.40 1.90 - 7.00 K/uL 10/17/2023 9:34 AM ABSTRACTOR [facility] LYMPHOCYTE ABSOLUTE 1.90 0.70 - 4.50 K/uL 10/17/2023 9:34 AM ABSTRACTOR [facility] MONOCYTE ABSOLUTE 0.50 0.10 - 1.30 K/uL 10/17/2023 9:34 AM ABSTRACTOR [facility] EOSINOPHIL ABSOLUTE 0.90(H) 0.00 - 0.70 K/uL 10/17/2023 9:34 AM ABSTRACTOR [facility] BASOPHILS ABSOLUTE 0.00 0.00 - 0.20 K/uL 10/17/2023 9:34 AM ABSTRACTOR [facility] Blood Collection / Unknown 10/17/2023 2:15 AM ABSTRACTOR 10/17/2023 9:00 AM ABSTRACTOR us Erik Chairez MD HEMATOLOGY ORDERABLES Final Resu lt [facility] CLIA# [id number] [place] [address] * (ABNORMAL) RENAL FUNCTION PANEL (10/17/2023 2:15 AM ABSTRACTOR) SODIUM 137 136 - 145 mmol/L 10/17/2023 9:56 AM [facility] [employer] [facility] POTASSIUM 4.0 3.4 - 5.1 mmol/L 10/17/2023 9:56 AM [facility] LABORATORY [facility] CHLORIDE 99 98 - 107 mmol/L 10/17/2023 9:56 AM [facility] [employer] [facility] CO2 23 22 - 29 mmol/L 10/17/2023 9:56 AM [facility] [employer] [facility] CALCIUM 9.2 8.6 - 10.4 mg/dL 10/17/2023 9:56 AM [facility] [employer] [facility] BUN 42(H) 6 - 20 mg/dL 10/17/2023 9:56 AM [facility] CREATININE 1.00 0.67 - 1.17 mg/dL 10/17/2023 9:56 AM [facility] Comment:The GFR result is no t clinically significant on patients <18 or >70 years of age. GLUCOSE 72(L) 74 - 99 mg/dL 10/17/2023 9:56 AM [facility] ALBUMIN 3.2(L) 3.5 - 5.2 g/dL 10/17/2023 9:56 AM [facility] PHOSPHORUS 2.9 2.5 - 4.5 mg/dL 10/17/2023 9:56 AM [facility] GFR >60 mL/min/1.7 3 sq meter 10/17/2023 9:56 AM [facility] Comment:eGFR calculated with 2020 CKD-EPI equation. Vegetarian diet, extremely high or low muscle mass, and may affect results. Cystatin C with Glomerular Filtration Rate is a suitable alternative for these patients. ANION GAP 15 8 - 16 mmol/L 10/17/2023 9:56 AM [facility] Blood Collection / Unknown 10/17/2023 2:15 AM ABSTRACTOR 10/17/2023 9:00 AM ABSTRACTOR Erik Chairez MD CHEMISTRY ORDERABLES Final Resul t [facility] CLIA# [id number] [place] [address] documented in this encounter Visit Diagnoses Not on filedocumented in this encounter Additional Health Concerns Infection Onset Date Last Indicated Resolved Time CRE-CP Comment:10/09/23 Klebsiella pneumoniae, Sputum 10/09/2023 10/09/2023 05/28/2024 2:37 PM C DT Multi Drug Resistant Organis m (MDRO) Comment:10/09/23 Klebsiella pneumoniae, CRE-CP organism, Sputum 10/09/2023 10/09/2023 ENTRY TECH-CP Comment:10/09/23 Klebsiella pneumoniae, Sputum 10/09/2023 05/28/2024 documented as of this encounter
--- OUTSIDE RECORDS SUMMARY | 2025-04-23 12:59 | XMS_ITS | Referral Summary ---
Author Organization [facility] Address [address] [place] [address] Care Team Providers Care Packaging Line Attendant Name Role Phone Demond Stark MD Primary Care Provider [phone] Encounters Date Type Department Care Team Description 03/16/2025 Orders Only [facility] Medical [facility] Cardiology [address] [facility] [address] [place] [phone] ProviderTaylor MD 03/16/2025 2:30 PM CDT Office Visit [facility] Cardiology [address] [facility] [address] [place] [address] Mando Luna MD Persistent atrial fibrillation (HCC) (Primary Dx); 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; Chronic anticoagulation; Nonrheumatic aortic (valve) stenosis; Cardiomyopathy, unspecified type (HCC) 03/01/2025 Telephone [facility] Medical [facility] Cardiology [address] [facility] [address] [place] [phone] Mando Luna MD from Last 3 Months Allergies Active Allergy Reactions Criticality Noted Date Comments Diphenhydramine Hallucinations Medium 11/27/2023 Was not able to sleep and made him more anxious Lisinopril Cough Low Reaction: Cough, Pravastatin Muscle pain Medium Reaction: Muscular Pain, Quetiapine Other (See comments) Low 06/05/2024 Hallucinations, insomnia Simvastatin Muscle pain Medium Reaction: Muscular Pain, [id number]-[id number] Reductase Inhibitors Muscle pain,Other (See comments) Medium 10/03/2015 Pt reports leg weakness/heavine ss when taking zocor. 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 Active aspirin 81 mg tablet [...] (COZAAR) 50 mg tabletIndications:Co ronary arteriosclerosis in lumbee artery,Cardiomyopath y, unspecified type (HCC) Take 1 tablet (50 mg total) by mouth daily 90 tablet 3 03/16/20 25 026 Active Active Problems Problem Noted Date Diagnosed Date Cardiomyopathy 03/16/2025 Nonrheumatic aortic (valve) stenosis 03/16/2025 Dysfunction of right eustachian tube 08/31/2024 Assessment & Plan (10/05/2024 10:54 AM [employer]IC [employer]ER[employer]): Avoid ear cleaning techniques Avoid water to ears Follow up in 9 months for right ear tube check, earlier with ear drainage Assessment & Plan (08/31/2024 11:40 AM [employer]): Right myringotomy with T-tube placement Risks and [...] 07/09/2024 Assessment & Plan (08/31/2024 11:39 AM [employer]): Right myringotomy with T-tube placement Risks and [...] 08/07/2017 Assessment & Plan (08/07/2017 6:01 PM [employer]): Has had elevated LFTs and a fatty liver. Bradycardia 08/07/2017 Assessment & Plan (08/07/2017 5:58 PM [employer]): Asymptomatic bradycardia, on low-dose metoprolol which may eventually need to be reduced or discontinued. Traumatic subdural hematoma of neuraxis 10/15/19 17 Overview (12/28/2016): Traumatic subdural hematoma without loss of consciousness, sequela Statin intolerance 10/15/2016 Overview (12/28/2016): Statin intolerance Essential hypertension 07/20/2013 Overview (12/28/2016): Hypertension Assessment & Plan (08/07/2017 5:57 PM [employer]): Hypertension is not under good control; reviewing [...] HYPERLIPIDEMIA Assessment & Plan (08/07/2017 6:03 PM [employer]): Has refued further attempts at statin therapy. 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 12/20 Overview (08/07/2017): CRNRY ATHRSCL NATVE VSSL 2009: Non STEMI and CABG x3 (HOBSON to the LAD, sequential RA to OM and D1) Assessment & Plan (08/07/2017 6:00 PM [employer]): 2009: Non STEMI and CABG x3 (HOBSON [...] 03/04/2018 Assessment & Plan (08/07/2017 5:58 PM [employer]): Patient is going to have knee surgery [...] on file Legal Sex Male 8:49 AM [employer]IC [employer] Gender Identity Not on file Sexual Orientation Not on file Last Filed Vital Signs Vital Sign Reading Time Taken Comments Blood Pressure 138/70 03/16/2025 2:40 PM CDT Pulse 88 03/16/2025 2:40 PM CDT Temperature 36.3 C (97.4 F) 09/22/2024 1:04 PM [employer] Respiratory Rate 18 09/22/2024 1:04 PM [employer] Oxygen Saturation 97% 03/16/2025 2:40 PM CDT Inhaled Oxygen Concentration - - Weight 97.1 kg (214 lb) 03/16/2025 2:40 PM CDT Height 185.4 cm (6' 1) 03/16/2025 2:40 PM CDT Body Mass Index 28.23 03/16/2025 2:40 PM CDT Plan of Treatment Not on file Medical Devices Implanted Type Area Yield Analyst Device Identifier Shelf Expiration Date Model / Serial / Lot [employer] 1.32mm 4.8mm Modify Ear T Tube Ventilation Ultrasil Sterile Blue [id number] - [id number] Implanted:Qty: 1 on 09/22/2024 by Laura Oakes DO at [facility] Right: Ear [employer] 07/[birth year]/2034 [id number] / / [id number] Insurance MEDICARE MEDICARE [facility] MEDICARE SUPPLEMENT Care Teams Packaging Line Attendant Relationship Specialty Start Date End Date Demond Stark MD PCP - General 07/23/11
--- OUTSIDE RECORDS SUMMARY | 2025-04-23 12:59 | XMS_ITS | Encounter Summary ---
Author Organization [facility] Address [address] [place] [address] Care Team Providers Care Floor Nurse Name Role Phone Unavailable Primary Care Provider Unavailabl e Encounter Details Date Type Department Care Team (Late st Contact Info) Description 10/23/2023 Lab Requisition [facility] Laboratory Services [address] [place] [address] [place] [address] [place] [address] Social History Tobacco Use Types Packs/Day Years Used Date Smoking Tobacco: Never Assessed Sex and Gender Information Value Date Recorded Sex Assigned at Not on file Legal Sex Male 9:18 AM SENIOR JAVA UI DEVELOPER Gender Identity Not on file Sexual Orientation Not on file documented as of this encounter Plan of Treatment Not on file documented as of this encounter Procedures Procedure Name Priority Date/Time Associated Diagnosis Comments CBC WITH DIFFERENTIAL Routine 10/23/2023 2:45 AM SENIOR JAVA UI DEVELOPER BASIC METABOLIC PANEL Routine 10/23/2023 2:45 AM SENIOR JAVA UI DEVELOPER documented in this encounter Results * (ABNORMAL) CBC WITH DIFFERENTIAL (10/23/2023 2:45 AM SENIOR JAVA UI DEVELOPER) WBC 12.7(H) 4.5 - 10.5 K/uL 10/23/2023 11:15 AM SENIOR JAVA UI DEVELOPER [facility] - [facility] RBC 4.12(L) 4.50 - 5.40 M/uL 10/23/2023 11:15 AM SENIOR JAVA UI DEVELOPER [facility] HEMOGLOBIN 12.2(L) 13.6 - 16.5 g/dL 10/23/2023 11:15 AM SENIOR JAVA UI DEVELOPER [facility] SERVICES [facility] HEMATOCRIT 38.7(L) 40.0 - 48.0 % 10/23/2023 11:15 AM SENIOR JAVA UI DEVELOPER [facility] MCV 94.0 82.0 - 99.0 fL 10/23/2023 11:15 AM SENIOR JAVA UI DEVELOPER [facility] SERVICES [facility] MCH 29.7 27.8 - 34.5 pg 10/23/2023 11:15 AM SENIOR JAVA UI DEVELOPER [facility] SERVICES [facility] MCHC 31.6(L) 32.5 - 35.5 g/dL 10/23/2023 11:15 AM SENIOR JAVA UI DEVELOPER [facility] SERVICES [facility] RDW 17.3(H) 11.5 - 14.5 % 10/23/2023 11:15 AM SENIOR JAVA UI DEVELOPER [facility] PLATELETS 264 160 - 420 K/uL 10/23/2023 11:15 AM SENIOR JAVA UI DEVELOPER [facility] SERVICES [facility] MPV 9.6 8.7 - 12.7 fL 10/23/2023 11:15 AM SENIOR JAVA UI DEVELOPER [facility] NEUTROPHILS 67 % 10/23/2023 11:15 AM SENIOR JAVA UI DEVELOPER [facility] LYMPHOCYTES 20 % 10/23/2023 11:15 AM SENIOR JAVA UI DEVELOPER [facility] MONOCYTES 5 % 10/23/2023 11:15 AM SENIOR JAVA UI DEVELOPER [facility] EOSINOPHILS 8 % 10/23/2023 11:15 AM SENIOR JAVA UI DEVELOPER [facility] BASOPHILS 1 % 10/23/2023 11:15 AM SENIOR JAVA UI DEVELOPER [facility] NEUTROPHIL ABSOLUTE 8.50(H) 1.90 - 7.00 K/uL 10/23/2023 11:15 AM SENIOR JAVA UI DEVELOPER [facility] SERVICES [facility] LYMPHOCYTE ABSOLUTE 2.50 0.70 - 4.50 K/uL 10/23/2023 11:15 AM SENIOR JAVA UI DEVELOPER [facility] SERVICES [facility] MONOCYTE ABSOLUTE 0.60 0.10 - 1.30 K/uL 10/23/2023 11:15 AM SENIOR JAVA UI DEVELOPER [facility] EOSINOPHIL ABSOLUTE 1.00(H) 0.00 - 0.70 K/uL 10/23/2023 11:15 AM SENIOR JAVA UI DEVELOPER [facility] SERVICES [facility] BASOPHILS ABSOLUTE 0.10 0.00 - 0.20 K/uL 10/23/2023 11:15 AM [facility] Blood Collection / Unknown 10/23/2023 2:45 AM SENIOR JAVA UI DEVELOPER 10/23/2023 10:44 AM SENIOR JAVA UI DEVELOPER Erik Chairez MD HEMATOLOGY ORDERABLES Final Resu lt [facility] CLIA# [id number] [place] [address] * (ABNORMAL) BASIC METABOLIC PANEL (10/23/2023 2:45 AM SENIOR JAVA UI DEVELOPER) SODIUM 139 136 - 145 mmol/L 10/23/2023 [...] 8 - 16 mmol/L 10/23/2023 11:42 AM SENIOR JAVA UI DEVELOPER [facility] SERVICES [facility] Blood Collection / Unknown 10/23/2023 2:45 AM SENIOR JAVA UI DEVELOPER 10/23/2023 10:44 AM SENIOR JAVA UI DEVELOPER Erik Chairez MD CHEMISTRY ORDERABLES Final Resul t [facility] CLIA# [id number] [address] [place] [address] documented in this encounter Visit Diagnoses Not on filedocumented in this encounter Additional Health Concerns Infection Onset Date Last Indicated Resolved Time 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
--- OUTSIDE RECORDS SUMMARY | 2025-04-23 12:59 | XMS_ITS | Encounter Summary ---
Author Organization [facility] Address [address] [place] [address] Care Team Providers Care Nut Sheller Name Role Phone Unavailable Primary Care Provider Unavailabl e Encounter Details Date Type Department Care Team (Late st Contact Info) Description 10/26/2023 Lab Requisition [facility] Laboratory Services [address] [place] [address] [place] [address] [place] [address] Social History Tobacco Use Types Packs/Day Years Used Date Smoking Tobacco: Never Assessed Sex and Gender Information Value Date Recorded Sex Assigned at Not on file Legal Sex Male 9:18 AM BENCH CHEMIST Gender Identity Not on file Sexual Orientation Not on file documented as of this encounter Plan of Treatment Not on file documented as of this encounter Procedures Procedure Name Priority Date/Time Associated Diagnosis Comments CBC WITH DIFFERENTIAL Routine 10/26/2023 3:20 AM BENCH CHEMIST BASIC METABOLIC PANEL Routine 10/26/2023 3:20 AM BENCH CHEMIST documented in this encounter Results * (ABNORMAL) CBC WITH DIFFERENTIAL (10/26/2023 3:20 AM BENCH CHEMIST) WBC 9.2 4.5 - 10.5 K/uL 10/26/2023 5:32 AM BENCH CHEMIST [facility] RBC 3.83(L) 4.50 - 5.40 M/uL 10/26/2023 5:32 AM BENCH CHEMIST [facility] HEMOGLOBIN 11.4(L) 13.6 - 16.5 g/dL 10/26/2023 5:32 AM BENCH CHEMIST [facility] HEMATOCRIT 35.4(L) 40.0 - 48.0 % 10/26/2023 5:32 AM BENCH CHEMIST [facility] MCV 92.4 82.0 - 99.0 fL 10/26/2023 5:32 AM BENCH CHEMIST [facility] MCH 29.6 27.8 - 34.5 pg 10/26/2023 5:32 AM BENCH CHEMIST [facility] MCHC 32.0(L) 32.5 - 35.5 g/dL 10/26/2023 5:32 AM BENCH CHEMIST [facility] RDW 17.3(H) 11.5 - 14.5 % 10/26/2023 5:32 AM BENCH CHEMIST [facility] PLATELETS 240 160 - 420 K/uL 10/26/2023 5:32 AM BENCH CHEMIST [facility] MPV 9.3 8.7 - 12.7 fL 10/26/2023 5:32 AM BENCH CHEMIST [facility] NEUTROPHILS 69 % 10/26/2023 5:32 AM BENCH CHEMIST [facility] LYMPHOCYTES 21 % 10/26/2023 5:32 AM BENCH CHEMIST [employer] LABORATORY SERVICES [facility] MONOCYTES 6 % 10/26/2023 5:32 AM BENCH CHEMIST [facility] EOSINOPHILS 4 % 10/26/2023 5:32 AM BENCH CHEMIST [facility] BASOPHILS 1 % 10/26/2023 5:32 AM BENCH CHEMIST [facility] NEUTROPHIL ABSOLUTE 6.30 1.90 - 7.00 K/uL 10/26/2023 5:32 AM BENCH CHEMIST [facility] LYMPHOCYTE ABSOLUTE 1.90 0.70 - 4.50 K/uL 10/26/2023 5:32 AM BENCH CHEMIST [facility] MONOCYTE ABSOLUTE 0.50 0.10 - 1.30 K/uL 10/26/2023 5:32 AM BENCH CHEMIST [facility] EOSINOPHIL ABSOLUTE 0.40 0.00 - 0.70 K/uL 10/26/2023 5:32 AM BENCH CHEMIST [facility] BASOPHILS ABSOLUTE 0.00 0.00 - 0.20 K/uL 10/26/2023 5:32 AM [facility] Blood Collection / Unknown 10/26/2023 3:20 AM BENCH CHEMIST 10/26/2023 4:57 AM BENCH CHEMIST Erik Chairez MD HEMATOLOGY ORDERABLES Final Resu lt [facility] CLIA# [id number] [facility] [place] [address] * (ABNORMAL) BASIC METABOLIC PANEL (10/26/2023 3:20 AM BENCH CHEMIST) SODIUM 137 136 - 145 mmol/L 10/26/2023 5:58 AM [facility] POTASSIUM 4.2 3.4 - 5.1 mmol/L 10/26/2023 5:58 AM [facility] CHLORIDE 100 98 - 107 mmol/L 10/26/2023 5:58 AM [facility] CO2 27 22 - 29 mmol/L 10/26/2023 5:58 AM [facility] CALCIUM 9.8 8.6 - 10.4 mg/dL 10/26/2023 5:58 AM [facility] BUN 39(H) 6 - 20 mg/dL 10/26/2023 5:58 AM [facility] CREATININE 1.01 0.67 - 1.17 mg/dL 10/26/2023 5:58 AM [facility] Comment:The GFR result is no t clinically significant on patients <18 or >70 years of age. GLUCOSE 110(H) 74 - 99 mg/dL 10/26/2023 5:58 AM [facility] GFR >60 mL/min/1.7 3 sq meter 10/26/2023 5:58 AM [facility] Comment:eGFR calculated with 2020 CKD-EPI equation. Vegetarian diet, extremely high or low muscle mass, and may affect results. Cystatin C with Glomerular Filtration Rate is a suitable alternative for these patients. ANION GAP 10 8 - 16 mmol/L 10/26/2023 5:58 AM BENCH CHEMIST [facility] Blood Collection / Unknown 10/26/2023 3:20 AM [facility] 10/26/2023 4:57 AM [facility] Erik Chairez MD CHEMISTRY ORDERABLES Final Resul t [facility] CLIA# [id number] [place] [address] documented in this encounter Visit Diagnoses Not on filedocumented in this encounter Additional Health Concerns Infection Onset Date Last Indicated Resolved Time CRE-CP Comment:10/09/23 Klebsiella pneumoniae, Sputum 10/09/2023 10/09/2023 05/28/2024 2:37 PM C DT Multi Drug Resistant Organis m (MDRO) Comment:10/09/23 Klebsiella pneumoniae, CRE-CP organism, Sputum 10/09/2023 10/09/2023 LEATHER STAKER-CP Comment:10/09/23 Klebsiella pneumoniae, Sputum 10/09/2023 05/28/2024 documented as of this encounter
--- OUTSIDE RECORDS SUMMARY | 2025-04-23 12:59 | XMS_ITS | Encounter Summary ---
Author Organization [facility] Address [address] [place] [address] Care Team Providers Care Medical Imaging Specialist Name Role Phone Unavailable Primary Care Provider Unavailabl e Encounter Details Date Type Department Care Team (Late st Contact Info) Description 10/20/2023 Lab Requisition [facility] Laboratory Services [address] [place] [address] [place] [address] [place] [address] Social History Tobacco Use Types Packs/Day Years Used Date Smoking Tobacco: Never Assessed Sex and Gender Information Value Date Recorded Sex Assigned at Not on file Legal Sex Male 9:18 AM FUNERAL DIRECTOR/EMBALMER/OWNER Gender Identity Not on file Sexual Orientation Not on file documented as of this encounter Plan of Treatment Not on file documented as of this encounter Procedures Procedure Name Priority Date/Time Associated Diagnosis Comments CBC WITH DIFFERENTIAL Routine 10/20/2023 2:20 AM FUNERAL DIRECTOR/EMBALMER/OWNER BASIC METABOLIC PANEL Routine 10/20/2023 2:20 AM FUNERAL DIRECTOR/EMBALMER/OWNER documented in this encounter Results * (ABNORMAL) CBC WITH DIFFERENTIAL (10/20/2023 2:20 AM FUNERAL DIRECTOR/EMBALMER/OWNER) WBC 8.3 4.5 - 10.5 K/uL 10/20/2023 5:25 AM FUNERAL DIRECTOR/EMBALMER/OWNER [facility] LABORATORY SERVICES - [facility] RBC 3.82(L) 4.50 - 5.40 M/uL 10/20/2023 5:25 AM FUNERAL DIRECTOR/EMBALMER/OWNER [facility] LABORATORY [facility] - [facility] HEMOGLOBIN 11.2(L) 13.6 - 16.5 g/dL 10/20/2023 5:25 AM FUNERAL DIRECTOR/EMBALMER/OWNER [facility] LABORATORY SERVICES - [facility] HEMATOCRIT 35.0(L) 40.0 - 48.0 % 10/20/2023 5:25 AM FUNERAL DIRECTOR/EMBALMER/OWNER [facility] LABORATORY SERVICES [facility] MCV 91.6 82.0 - 99.0 fL 10/20/2023 5:25 AM FUNERAL DIRECTOR/EMBALMER/OWNER [facility] LABORATORY SERVICES - [facility] MCH 29.4 27.8 - 34.5 pg 10/20/2023 5:25 AM FUNERAL DIRECTOR/EMBALMER/OWNER [facility] LABORATORY SERVICES [facility] MCHC 32.1(L) 32.5 - 35.5 g/dL 10/20/2023 5:25 AM FUNERAL DIRECTOR/EMBALMER/OWNER [facility] LABORATORY SERVICES - [facility] RDW 17.4(H) 11.5 - 14.5 % 10/20/2023 5:25 AM FUNERAL DIRECTOR/EMBALMER/OWNER [facility] - [facility] PLATELETS 255 160 - 420 K/uL 10/20/2023 5:25 AM FUNERAL DIRECTOR/EMBALMER/OWNER [facility] LABORAT[facility] SERVICES [facility] MPV 9.4 8.7 - 12.7 fL 10/20/2023 5:25 AM FUNERAL DIRECTOR/EMBALMER/OWNER [facility] LABOR[facility] - [facility] NEUTROPHILS 60 % 10/20/2023 5:25 AM FUNERAL DIRECTOR/EMBALMER/OWNER [facility] LYMPHOCYTES 23 % 10/20/2023 5:25 AM FUNERAL DIRECTOR/EMBALMER/OWNER [employer] LABORATORY SERVICES [facility] MONOCYTES 6 % 10/20/2023 5:25 AM FUNERAL DIRECTOR/EMBALMER/OWNER [facility] EOSINOPHILS 11 % 10/20/2023 5:25 AM FUNERAL DIRECTOR/EMBALMER/OWNER [facility] LABORATORY SERVICES [facility] BASOPHILS 1 % 10/20/2023 5:25 AM FUNERAL DIRECTOR/EMBALMER/OWNER [facility] LABORATORY SERVICES [facility] NEUTROPHIL ABSOLUTE 4.90 1.90 - 7.00 K/uL 10/20/2023 5:25 AM FUNERAL DIRECTOR/EMBALMER/OWNER [facility] LYMPHOCYTE ABSOLUTE 1.90 0.70 - 4.50 K/uL 10/20/2023 5:25 AM FUNERAL DIRECTOR/EMBALMER/OWNER [employer] LABORATORY SERVICES [facility] MONOCYTE ABSOLUTE 0.50 0.10 - 1.30 K/uL 10/20/2023 5:25 AM FUNERAL DIRECTOR/EMBALMER/OWNER [facility] EOSINOPHIL ABSOLUTE 0.90(H) 0.00 - 0.70 K/uL 10/20/2023 5:25 AM FUNERAL DIRECTOR/EMBALMER/OWNER [facility] BASOPHILS ABSOLUTE 0.00 0.00 - 0.20 K/uL 10/20/2023 5:25 AM [facility] Blood 10/20/2023 2:20 AM FUNERAL DIRECTOR/EMBALMER/OWNER 10/20/2023 5:15 AM FUNERAL DIRECTOR/EMBALMER/OWNER Erik Chairez MD HEMATOLOGY ORDERABLES Final Resu lt [facility] CLIA# [id number] [place] [address] * (ABNORMAL) BASIC METABOLIC PANEL (10/20/2023 2:20 AM FUNERAL DIRECTOR/EMBALMER/OWNER) SODIUM 140 136 - 145 mmol/L 10/20/2023 [...] 8 - 16 mmol/L 10/20/2023 5:53 AM FUNERAL DIRECTOR/EMBALMER/OWNER [facility] LABORATORY SERVICES [facility] Blood 10/20/2023 2:20 AM FUNERAL DIRECTOR/EMBALMER/OWNER 10/20/2023 5:15 AM FUNERAL DIRECTOR/EMBALMER/OWNER Erik Chairez MD CHEMISTRY ORDERABLES Final Resul t [facility] LABORATORY [facility] CLIA# [id number] [place] [address] documented in this encounter Visit Diagnoses Not on filedocumented in this encounter Additional Health Concerns Infection Onset Date Last Indicated Resolved Time 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
--- OUTSIDE RECORDS SUMMARY | 2025-04-23 12:59 | XMS_ITS | Encounter Summary ---
Author Organization [facility] Address [address] [place] [address] Care Team Providers Care Junior Analyst Name Role Phone Unavailable Primary Care Provider Unavailabl e Encounter Details Date Type Department Care Team (Late st Contact Info) Description 11/04/2023 Lab Requisition [facility] Laboratory Services [address] [place] [address] [place] [address] [place] [address] Social History Tobacco Use Types Packs/Day Years Used Date Smoking Tobacco: Never Assessed Sex and Gender Information Value Date Recorded Sex Assigned at Not on file Legal Sex Male 9:18 AM CRYPTOLOGIST Gender Identity Not on file Sexual Orientation Not on file documented as of this encounter Plan of Treatment Not on file documented as of this encounter Procedures Procedure Name Priority Date/Time Associated Diagnosis Comments CBC WITH DIFFERENTIAL Routine 11/04/2023 3:45 AM CRYPTOLOGIST BASIC METABOLIC PANEL Routine 11/04/2023 3:45 AM CRYPTOLOGIST documented in this encounter Results * (ABNORMAL) CBC WITH DIFFERENTIAL (11/04/2023 3:45 AM CRYPTOLOGIST) WBC 12.2(H) 4.5 - 10.5 K/uL 11/04/2023 8:52 AM CRYPTOLOGIST [facility] LABORATORY SERVICES - [facility] RBC 4.11(L) 4.50 - 5.40 M/uL 11/04/2023 8:52 AM CRYPTOLOGIST [facility] LABORAT[facility] HEMOGLOBIN 11.7(L) 13.6 - 16.5 g/dL 11/04/2023 8:52 AM CRYPTOLOGIST [facility] HEMATOCRIT 37.9(L) 40.0 - 48.0 % 11/04/2023 8:52 AM CRYPTOLOGIST [facility] LABORATORY SERVICES [facility] MCV 92.2 82.0 - 99.0 fL 11/04/2023 8:52 AM CRYPTOLOGIST [facility] MCH 28.5 27.8 - 34.5 pg 11/04/2023 8:52 AM CRYPTOLOGIST [facility] LABORATORY SERVICES [facility] MCHC 30.9(L) 32.5 - 35.5 g/dL 11/04/2023 8:52 AM CRYPTOLOGIST [facility] LABORATORY SERVICES [facility] RDW 17.0(H) 11.5 - 14.5 % 11/04/2023 8:52 AM CRYPTOLOGIST [facility] LABORATORY SERVICES [facility] PLATELETS 272 160 - 420 K/uL 11/04/2023 8:52 AM CRYPTOLOGIST [facility] LABORATORY SERVICES [facility] MPV 10.0 8.7 - 12.7 fL 11/04/2023 8:52 AM CRYPTOLOGIST [facility] LABORATORY SERVICES [facility] NEUTROPHILS 45 % 11/04/2023 8:52 AM CRYPTOLOGIST [facility] LABORATORY SERVICES [facility] LYMPHOCYTES 38 % 11/04/2023 8:52 AM CRYPTOLOGIST [facility] LABORATORY SERVICES [facility] MONOCYTES 7 % 11/04/2023 8:52 AM CRYPTOLOGIST [facility] LABORATORY SERVICES [facility] EOSINOPHILS 11 % 11/04/2023 8:52 AM CRYPTOLOGIST [facility] LABORAT[facility] SERVICES [facility] BASOPHILS 1 % 11/04/2023 8:52 AM CRYPTOLOGIST [facility] NEUTROPHIL ABSOLUTE 5.50 1.90 - 7.00 K/uL 11/04/2023 8:52 AM CRYPTOLOGIST [facility] LABORATORY SERVICES [facility] LYMPHOCYTE ABSOLUTE 4.60(H) 0.70 - 4.50 K/uL 11/04/2023 8:52 AM CRYPTOLOGIST [facility] LABORATORY SERVICES [facility] MONOCYTE ABSOLUTE 0.80 0.10 - 1.30 K/uL 11/04/2023 8:52 AM CRYPTOLOGIST [facility] LABORATORY SERVICES [facility] EOSINOPHIL ABSOLUTE 1.30(H) 0.00 - 0.70 K/uL 11/04/2023 8:52 AM CRYPTOLOGIST [facility] LABORATORY SERVICES [facility] BASOPHILS ABSOLUTE 0.10 0.00 - 0.20 K/uL 11/04/2023 8:52 AM [facility] [employer] [facility] Blood 11/04/2023 3:45 AM CRYPTOLOGIST 11/04/2023 8:24 AM CRYPTOLOGIST Erik Chairez MD HEMATOLOGY ORDERABLES Final Resu lt [facility] CLIA# [id number] [place] [address] * (ABNORMAL) BASIC METABOLIC PANEL (11/04/2023 3:45 AM CRYPTOLOGIST) SODIUM 144 136 - 145 mmol/L 11/04/2023 9:49 AM [facility] POTASSIUM 5.3(H) 3.4 - 5.1 mmol/L 11/04/2023 9:49 AM [facility] CHLORIDE 103 98 - 107 mmol/L 11/04/2023 9:49 AM [facility] CO2 26 22 - 29 mmol/L 11/04/2023 9:49 AM [facility] CALCIUM 10.7(H) 8.6 - 10.4 mg/dL 11/04/2023 9:49 AM [facility] BUN 38(H) 6 - 20 mg/dL 11/04/2023 9:49 AM [facility] CREATININE 0.95 0.67 - 1.17 mg/dL 11/04/2023 9:49 AM [facility] Comment:The GFR result is no t clinically significant on patients <18 or >70 years of age. GLUCOSE 114(H) 74 - 99 mg/dL 11/04/2023 9:49 AM [facility] GFR >60 mL/min/1.7 3 sq meter 11/04/2023 9:49 AM [facility] Comment:eGFR calculated with 2020 CKD-EPI equation. Vegetarian diet, extremely high or low muscle mass, and may affect results. Cystatin C with Glomerular Filtration Rate is a suitable alternative for these patients. ANION GAP 15 8 - 16 mmol/L 11/04/2023 9:49 AM CRYPTOLOGIST [facility] Blood 11/04/2023 3:45 AM CRYPTOLOGIST 11/04/2023 8:24 AM CRYPTOLOGIST Erik Chairez MD CHEMISTRY ORDERABLES Final Resul t [facility] CLIA# [id number] [place] [address] documented in this encounter Visit Diagnoses Not on filedocumented in this encounter Additional Health Concerns Infection Onset Date Last Indicated Resolved Time CRE-CP Comment:10/09/23 Klebsiella pneumoniae, Sputum 10/09/2023 10/09/2023 05/28/2024 2:37 PM C DT 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
--- OUTSIDE RECORDS SUMMARY | 2025-04-23 12:59 | XMS_ITS | Encounter Summary ---
Author Organization [facility] Address [address] [place] [address] Care Team Providers Care Bank Worker Name Role Phone Unavailable Primary Care Provider Unavailabl e Encounter Details Date Type Department Care Team (Late st Contact Info) Description 11/10/2023 Lab Requisition [facility] Laboratory Services [address] [place] [address] [place] [address] [place] [address] Social History Tobacco Use Types Packs/Day Years Used Date Smoking Tobacco: Never Assessed Sex and Gender Information Value Date Recorded Sex Assigned at Not on file Legal Sex Male 9:18 AM HEAT SEALING MACHINE OPERATOR Gender Identity Not on file Sexual Orientation Not on file documented as of this encounter Plan of Treatment Not on file documented as of this encounter Procedures Procedure Name Priority Date/Time Associated Diagnosis Comments CBC WITH DIFFERENTIAL Routine 11/10/2023 6:10 AM HEAT SEALING MACHINE OPERATOR BASIC METABOLIC PANEL Routine 11/10/2023 6:10 AM HEAT SEALING MACHINE OPERATOR documented in this encounter Results * (ABNORMAL) CBC WITH DIFFERENTIAL (11/10/2023 6:10 AM HEAT SEALING MACHINE OPERATOR) WBC 7.9 4.5 - 10.5 K/uL 11/10/2023 6:55 AM HEAT SEALING MACHINE OPERATOR [facility] LABORATORY SERVICES - [facility] RBC 3.65(L) 4.50 - 5.40 M/uL 11/10/2023 6:55 AM HEAT SEALING MACHINE OPERATOR [facility] LABORATORY [facility] - [facility] HEMOGLOBIN 10.8(L) 13.6 - 16.5 g/dL 11/10/2023 6:55 AM HEAT SEALING MACHINE OPERATOR [facility] LABORATORY SERVICES - [facility] HEMATOCRIT 33.6(L) 40.0 - 48.0 % 11/10/2023 6:55 AM HEAT SEALING MACHINE OPERATOR [facility] LABORATORY SERVICES [facility] MCV 92.0 82.0 - 99.0 fL 11/10/2023 6:55 AM HEAT SEALING MACHINE OPERATOR [facility] LABORATORY SERVICES [facility] MCH 29.7 27.8 - 34.5 pg 11/10/2023 6:55 AM HEAT SEALING MACHINE OPERATOR [facility] LABORATORY SERVICES [facility] MCHC 32.2(L) 32.5 - 35.5 g/dL 11/10/2023 6:55 AM HEAT SEALING MACHINE OPERATOR [facility] LABORATORY SERVICES [facility] RDW 17.0(H) 11.5 - 14.5 % 11/10/2023 6:55 AM HEAT SEALING MACHINE OPERATOR [facility] LABORATORY SERVICES [facility] PLATELETS 251 160 - 420 K/uL 11/10/2023 6:55 AM HEAT SEALING MACHINE OPERATOR [facility] MPV 9.2 8.7 - 12.7 fL 11/10/2023 6:55 AM HEAT SEALING MACHINE OPERATOR [facility] LABORATORY SERVICES [facility] NEUTROPHILS 62 % 11/10/2023 6:55 AM HEAT SEALING MACHINE OPERATOR [facility] LABORATORY SERVICES [facility] LYMPHOCYTES 22 % 11/10/2023 6:55 AM HEAT SEALING MACHINE OPERATOR [facility] MONOCYTES 5 % 11/10/2023 6:55 AM HEAT SEALING MACHINE OPERATOR [facility] EOSINOPHILS 10 % 11/10/2023 6:55 AM HEAT SEALING MACHINE OPERATOR [facility] BASOPHILS 1 % 11/10/2023 6:55 AM HEAT SEALING MACHINE OPERATOR [facility] LABORATORY SERVICES [facility] NEUTROPHIL ABSOLUTE 4.90 1.90 - 7.00 K/uL 11/10/2023 6:55 AM HEAT SEALING MACHINE OPERATOR [facility] LABORATORY SERVICES [facility] LYMPHOCYTE ABSOLUTE 1.70 0.70 - 4.50 K/uL 11/10/2023 6:55 AM HEAT SEALING MACHINE OPERATOR [facility] LABORATORY SERVICES [facility] MONOCYTE ABSOLUTE 0.40 0.10 - 1.30 K/uL 11/10/2023 6:55 AM HEAT SEALING MACHINE OPERATOR [facility] LABORATORY SERVICES [facility] EOSINOPHIL ABSOLUTE 0.80(H) 0.00 - 0.70 K/uL 11/10/2023 6:55 AM HEAT SEALING MACHINE OPERATOR [facility] SERVICES [facility] BASOPHILS ABSOLUTE 0.10 0.00 - 0.20 K/uL 11/10/2023 6:55 AM [facility] Blood 11/10/2023 6:10 AM HEAT SEALING MACHINE OPERATOR 11/10/2023 6:41 AM HEAT SEALING MACHINE OPERATOR Erik Chairez MD HEMATOLOGY ORDERABLES Final Resu lt [facility] CLIA# [id number] [place] [address] * (ABNORMAL) BASIC METABOLIC PANEL (11/10/2023 6:10 AM HEAT SEALING MACHINE OPERATOR) SODIUM 139 136 - 145 mmol/L 11/10/2023 7:14 AM [facility] POTASSIUM 4.2 3.4 - 5.1 mmol/L 11/10/2023 7:14 AM [facility] CHLORIDE 103 98 - 107 mmol/L 11/10/2023 7:14 AM [facility] CO2 26 22 - 29 mmol/L 11/10/2023 7:14 AM [facility] CALCIUM 9.4 8.6 - 10.4 mg/dL 11/10/2023 7:14 AM [facility] BUN 39(H) 6 - 20 mg/dL 11/10/2023 7:14 AM [facility] CREATININE 0.98 0.67 - 1.17 mg/dL 11/10/2023 7:14 AM [facility] Comment:The GFR result is no t clinically significant on patients <18 or >70 years of age. GLUCOSE 111(H) 74 - 99 mg/dL 11/10/2023 7:14 AM [facility] GFR >60 mL/min/1.7 3 sq meter 11/10/2023 7:14 AM [facility] Comment:eGFR calculated with 2020 CKD-EPI equation. Vegetarian diet, extremely high or low muscle mass, and may affect results. Cystatin C with Glomerular Filtration Rate is a suitable alternative for these patients. 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
--- OUTSIDE RECORDS SUMMARY | 2025-04-23 12:59 | XMS_ITS | Encounter Summary ---
Author Organization [facility] Address [address] [place] [address] Care Team Providers Care Media Marketing Specialist Name Role Phone Unavailable Primary Care Provider Unavailabl e Encounter Details Date Type Department Care Team (Late st Contact Info) Description 11/07/2023 Lab Requisition [facility] Laboratory Services [address] [place] [address] [place] [address] [place] [address] Social History Tobacco Use Types Packs/Day Years Used Date Smoking Tobacco: Never Assessed Sex and Gender Information Value Date Recorded Sex Assigned at Not on file Legal Sex Male 9:18 AM FOOD CHECKERS AND CASHIERS SUPERVISOR Gender Identity Not on file Sexual Orientation Not on file documented as of this encounter Plan of Treatment Not on file documented as of this encounter Procedures Procedure Name Priority Date/Time Associated Diagnosis Comments THEOPHYLLINE LEVEL Routine 11/07/2023 8: 40 AM FOOD CHECKERS AND CASHIERS SUPERVISOR documented in this encounter Results * (ABNORMAL) THEOPHYLLINE LEVEL (11/07/2023 8:40 AM FOOD CHECKERS AND CASHIERS SUPERVISOR) THEOPHYLLINE LEVEL <0.8(L) 10.0 - 20.0 ug/mL 11/07/2023 3:56 PM FOOD CHECKERS AND CASHIERS SUPERVISOR [facility] LABORATORY SERVICES [facility] Comment:Verified by repeat a nalysis. TDM LAST DATE, TIME, AMT (TIFFANIE) Patient unable to state date. time or dose. 11/07/2023 3:56 PM FOOD CHECKERS AND CASHIERS SUPERVISOR [facility] LABORATORY SERVICES [facility] LAST DOSE AMT, THEOPHYLLINE Other 11/07/2023 3:56 PM FOOD CHECKERS AND CASHIERS SUPERVISOR [facility] LABORATORY SERVICES [facility] Comment:80 mg Blood 11/07/2023 8:40 AM FOOD CHECKERS AND CASHIERS SUPERVISOR 11/07/2023 10:34 AM FOOD CHECKERS AND CASHIERS SUPERVISOR Narrative [facility] LABORAT[facility] - 11/07/2023 3:56 PM FOOD CHECKERS AND CASHIERS SUPERVISOR Theophylline Toxic Levels: 6 months - Adult = >20.0 ug/mL 0 - 6 months = >15.0 ug/mL Erik Chairez MD CHEMISTRY ORDERABLES Final Resul t [facility] LABORATORY 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
--- OUTSIDE RECORDS SUMMARY | 2025-04-23 12:59 | XMS_ITS | Encounter Summary ---
Author Organization [facility] Address [address] [place] [address] Care Team Providers Care Distribution Center Manager Name Role Phone Unavailable Primary Care Provider Unavailabl e Encounter Details Date Type Department Care Team (Late st Contact Info) Description 11/05/2023 Lab Requisition [facility] Laboratory Services [address] [place] [address] [place] [address] [address] Social History Tobacco Use Types Packs/Day Years Used Date Smoking Tobacco: Never Assessed Sex and Gender Information Value Date Recorded Sex Assigned at Not on file Legal Sex Male 9:18 AM AVIATION MEDICINE SPECIALIST Gender Identity Not on file Sexual Orientation Not on file documented as of this encounter Plan of Treatment Not on file documented as of this encounter Procedures Procedure Name Priority Date/Time Associated Diagnosis Comments DIFFERENTIAL, MANUAL Routine 11/05/2023 3:30 AM AVIATION MEDICINE SPECIALIST CBC WITH DIFFERENTIAL Routine 11/05/2023 3:30 AM AVIATION MEDICINE SPECIALIST documented in this encounter Results * MANUAL DIFFERENTIAL (11/05/2023 3:30 AM AVIATION MEDICINE SPECIALIST) PLATELET EST. Consistent w Count 11/05/2023 6:05 AM AVIATION MEDICINE SPECIALIST [facility] RBC MORPHOLOGY Normal 11/05/2023 6:05 AM AVIATION MEDICINE SPECIALIST [facility] Blood Collection / Unknown 11/05/2023 3:30 AM AVIATION MEDICINE SPECIALIST 11/05/2023 5:05 AM AVIATION MEDICINE SPECIALIST Erik Chairez MD HEMATOLOGY ORDERABLES COM Final Result [facility] CLIA# [id number] [address] [place] [address] * (ABNORMAL) CBC WITH DIFFERENTIAL (11/05/2023 3:30 AM AVIATION MEDICINE SPECIALIST) [facility] WBC 7.5 4.5 - 10.5 K/uL 11/05/2023 6:05 AM [facility] LABORATORY [facility] RBC 3.81(L) 4.50 - 5.40 M/uL 11/05/2023 6:05 AM [facility] HEMOGLOBIN 11.9(L) 13.6 - 16.5 g/dL 11/05/2023 6:05 AM [facility] HEMATOCRIT 35.6(L) 40.0 - 48.0 % 11/05/2023 6:05 AM [facility] [employer] [facility] MCV 93.5 82.0 - 99.0 fL 11/05/2023 6:05 AM [facility] [employer] [facility] MCH 31.2 27.8 - 34.5 pg 11/05/2023 6:05 AM [facility] [employer] [facility] MCHC 33.3 32.5 - 35.5 g/dL 11/05/2023 6:05 AM [facility] [employer] [facility] RDW 17.0(H) 11.5 - 14.5 % 11/05/2023 6:05 AM [facility] [employer] [facility] PLATELETS 243 160 - 420 K/uL 11/05/2023 6:05 AM [facility] [employer] [facility] MPV 9.4 8.7 - 12.7 fL 11/05/2023 6:05 AM [facility] LABORATORY [facility] NEUTROPHILS 63 % 11/05/2023 6:05 AM AVIATION MEDICINE SPECIALIST [facility] [employer] [facility] LYMPHOCYTES 23 % 11/05/2023 6:05 AM AVIATION MEDICINE SPECIALIST [facility] LABORATORY [facility] MONOCYTES 5 % 11/05/2023 6:05 AM [facility] LABORATORY [facility] EOSINOPHILS 9 % 11/05/2023 6:05 AM AVIATION MEDICINE SPECIALIST [facility] LABORATORY [facility] BASOPHILS 1 % 11/05/2023 6:05 AM AVIATION MEDICINE SPECIALIST [facility] LABORATORY [facility] NEUTROPHIL ABSOLUTE 4.70 1.90 - 7.00 K/uL 11/05/2023 6:05 AM AVIATION MEDICINE SPECIALIST [facility] LABORATORY [facility] LYMPHOCYTE ABSOLUTE 1.70 0.70 - 4.50 K/uL 11/05/2023 6:05 AM AVIATION MEDICINE SPECIALIST [facility] LABORATORY [facility] MONOCYTE ABSOLUTE 0.40 0.10 - 1.30 K/uL 11/05/2023 6:05 AM AVIATION MEDICINE SPECIALIST [facility] LABORATORY [facility] EOSINOPHIL ABSOLUTE 0.70 0.00 - 0.70 K/uL 11/05/2023 6:05 AM AVIATION MEDICINE SPECIALIST [facility] LABORATORY SERVICES - [facility] BASOPHILS ABSOLUTE 0.00 0.00 - 0.20 K/uL 11/05/2023 6:05 AM AVIATION MEDICINE SPECIALIST [facility] LABORATORY [facility] Blood Collection / Unknown 11/05/2023 3:30 AM AVIATION MEDICINE SPECIALIST 11/05/2023 5:05 AM AVIATION MEDICINE SPECIALIST Erik Chairez MD HEMATOLOGY ORDERABLES Final Resu lt [facility] CLIA# [id number] [address] [place] [address] documented in this encounter Visit Diagnoses Not on filedocumented in this encounter Additional Health Concerns Infection Onset Date Last Indicated Resolved Time 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
--- OUTSIDE RECORDS SUMMARY | 2025-04-23 12:59 | XMS_ITS | Encounter Summary ---
Author Organization [facility] Address [address] [place] [address] Care Team Providers Care Molding Manager Name Role Phone Unavailable Primary Care Provider Unavailabl e Encounter Details Date Type Department Care Team (Late st Contact Info) Description 11/01/2023 Lab Requisition [facility] Laboratory Services [address] [place] [address] [place] [id number] [place] [address] Social History Tobacco Use Types Packs/Day Years Used Date Smoking Tobacco: Never Assessed Sex and Gender Information Value Date Recorded Sex Assigned at Not on file Legal Sex Male 9:18 AM WOOD HACKER Gender Identity Not on file Sexual Orientation Not on file documented as of this encounter Plan of Treatment Not on file documented as of this encounter Procedures Procedure Name Priority Date/Time Associated Diagnosis Comments CBC WITH DIFFERENTIAL Routine 11/01/2023 4:20 AM WOOD HACKER BASIC METABOLIC PANEL Routine 11/01/2023 4:20 AM WOOD HACKER documented in this encounter Results * (ABNORMAL) CBC WITH DIFFERENTIAL (11/01/2023 4:20 AM WOOD HACKER) WBC 8.5 4.5 - 10.5 K/uL 11/01/2023 8:48 AM WOOD HACKER [facility] LABORATORY SERVICES - [facility] RBC 3.87(L) 4.50 - 5.40 M/uL 11/01/2023 8:48 AM WOOD HACKER [facility] LABORATORY [facility] HEMOGLOBIN 11.2(L) 13.6 - 16.5 g/dL 11/01/2023 8:48 AM WOOD HACKER [facility] LABORAT[facility] HEMATOCRIT 34.9(L) 40.0 - 48.0 % 11/01/2023 8:48 AM WOOD HACKER [facility] LABORATORY SERVICES [facility] MCV 90.3 82.0 - 99.0 fL 11/01/2023 8:48 AM WOOD HACKER [facility] LABORATORY SERVICES - [facility] MCH 29.0 27.8 - 34.5 pg 11/01/2023 8:48 AM WOOD HACKER [facility] LABORATORY SERVICES [facility] MCHC 32.1(L) 32.5 - 35.5 g/dL 11/01/2023 8:48 AM WOOD HACKER [facility] LABORATORY SERVICES [facility] RDW 17.0(H) 11.5 - 14.5 % 11/01/2023 8:48 AM WOOD HACKER [facility] LABORATORY SERVICES [facility] PLATELETS 246 160 - 420 K/uL 11/01/2023 8:48 AM WOOD HACKER [facility] MPV 9.7 8.7 - 12.7 fL 11/01/2023 8:48 AM WOOD HACKER [facility] NEUTROPHILS 53 % 11/01/2023 8:48 AM WOOD HACKER [facility] LYMPHOCYTES 29 % 11/01/2023 8:48 AM WOOD HACKER [facility] MONOCYTES 7 % 11/01/2023 8:48 AM WOOD HACKER [facility] EOSINOPHILS 12 % 11/01/2023 8:48 AM WOOD HACKER [facility] BASOPHILS 1 % 11/01/2023 8:48 AM WOOD HACKER [facility] LABORATORY SERVICES [facility] NEUTROPHIL ABSOLUTE 4.50 1.90 - 7.00 K/uL 11/01/2023 8:48 AM WOOD HACKER [facility] LABORATORY SERVICES [facility] LYMPHOCYTE ABSOLUTE 2.40 0.70 - 4.50 K/uL 11/01/2023 8:48 AM WOOD HACKER [facility] MONOCYTE ABSOLUTE 0.60 0.10 - 1.30 K/uL 11/01/2023 8:48 AM WOOD HACKER [facility] LABORATORY SERVICES [facility] EOSINOPHIL ABSOLUTE 1.00(H) 0.00 - 0.70 K/uL 11/01/2023 8:48 AM WOOD HACKER [facility] LABORATORY SERVICES [facility] BASOPHILS ABSOLUTE 0.00 0.00 - 0.20 K/uL 11/01/2023 8:48 AM [facility] Blood Collection / Unknown 11/01/2023 4:20 AM WOOD HACKER 11/01/2023 7:57 AM WOOD HACKER Erik Chairez MD HEMATOLOGY ORDERABLES Final Resu lt [facility] CLIA# [id number] [address] [place] [address] * (ABNORMAL) BASIC METABOLIC PANEL (11/01/2023 4:20 AM WOOD HACKER) SODIUM 139 136 - 145 mmol/L 11/01/2023 9:12 AM [facility] POTASSIUM 3.7 3.4 - 5.1 mmol/L 11/01/2023 9:12 AM [facility] CHLORIDE 100 98 - 107 mmol/L 11/01/2023 9:12 AM [facility] CO2 27 22 - 29 mmol/L 11/01/2023 9:12 AM [facility] CALCIUM 9.8 8.6 - 10.4 mg/dL 11/01/2023 9:12 AM [facility] BUN 41(H) 6 - 20 mg/dL 11/01/2023 9:12 AM [facility] CREATININE 0.93 0.67 - 1.17 mg/dL 11/01/2023 9:12 AM [facility] Comment:The GFR result is no t clinically significant on patients <18 or >70 years of age. GLUCOSE 109(H) 74 - 99 mg/dL 11/01/2023 9:12 AM [facility] GFR >60 mL/min/1.7 3 sq meter 11/01/2023 9:12 AM [facility] Comment:eGFR calculated with 2020 CKD-EPI equation. Vegetarian diet, extremely high or low muscle mass, and may affect results. Cystatin C with Glomerular Filtration Rate is a suitable alternative for these patients. ANION GAP 12 8 - 16 mmol/L 11/01/2023 9:12 AM WOOD HACKER [facility] LABORATORY SERVICES [facility] Blood Collection / Unknown 11/01/2023 4:20 AM WOOD HACKER 11/01/2023 7:57 AM WOOD HACKER Erik Chairez MD CHEMISTRY ORDERABLES Final Resul t [facility] LABORATORY SERVICES 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
--- OUTSIDE RECORDS SUMMARY | 2025-04-23 12:59 | XMS_ITS | Encounter Summary ---
Author Organization [facility] Address [address] [place] [address] Care Team Providers Care Cast Iron Dipper Name Role Phone Unavailable Primary Care Provider Unavailabl e Encounter Details Date Type Department Care Team (Late st Contact Info) Description 10/14/2023 Lab Requisition [facility] Laboratory Services [address] [place] [address] [place] [address] [place] [address] Social History Tobacco Use Types Packs/Day Years Used Date Smoking Tobacco: Never Assessed Sex and Gender Information Value Date Recorded Sex Assigned at Not on file Legal Sex Male 9:18 AM GUEST HISTORY CLERK Gender Identity Not on file Sexual Orientation Not on file documented as of this encounter Plan of Treatment Not on file documented as of this encounter Procedures Procedure Name Priority Date/Time Associated Diagnosis Comments CBC WITH DIFFERENTIAL Routine 10/14/2023 2:35 AM GUEST HISTORY CLERK TRIGLYCERIDE Routine 10/14/2023 2:35 AM GUEST HISTORY CLERK PHOSPHORUS Routine 10/14/2023 2:35 AM GUEST HISTORY CLERK MAGNESIUM LEVEL Routine 10/14/2023 2:35 AM GUEST HISTORY CLERK COMPREHENSIVE METABOLIC PANEL Routine 10/14/2023 2:35 AM GUEST HISTORY CLERK documented in this encounter Results * (ABNORMAL) TRIGLYCERIDE (10/14/2023 2:35 AM GUEST HISTORY CLERK) TRIGLYCERIDE 161(H) <150 mg/dL 10/14/2023 8:26 AM GUEST HISTORY CLERK [facility] LABORATORY SERVICES [facility] Blood Collection / Unknown 10/14/2023 2:35 AM GUEST HISTORY CLERK 10/14/2023 7:22 AM GUEST HISTORY CLERK Narrative [facility] - 10/14/2023 8:26 AM GUEST HISTORY CLERK TRIGLYCERIDES mg/dL Normal < 150 Borderline High 150 - 199 High 200 - 499 Very High >= 500 Based on AHA/NCEP Guidelines. us Erik Chairez MD CHEMISTRY ORDERABLES Final Resul t Performing Organization Address City/[facility]/ZIP Co de Phone Number [facility] CLIA# [id number] [address] [place] [address] * PHOSPHORUS (10/14/2023 2:35 AM GUEST HISTORY CLERK) PHOSPHORUS 3.4 2.5 - 4.5 mg/dL 10/14/2023 8:26 AM GUEST HISTORY CLERK [facility] Blood Collection / Unknown 10/14/2023 2:35 AM GUEST HISTORY CLERK 10/14/2023 7:22 AM GUEST HISTORY CLERK us Erik Chairez MD CHEMISTRY ORDERABLES Final Resul t Performing Organization Address City/[facility] Co de Phone Number [facility] [id number] [address] [place] [address] * MAGNESIUM LEVEL (10/14/2023 2:35 AM GUEST HISTORY CLERK) MAGNESIUM 2.5 1.6 - 2.6 mg/dL 10/14/2023 8:26 AM GUEST HISTORY CLERK [facility] [employer] [facility] Blood Collection / Unknown 10/14/2023 2:35 AM GUEST HISTORY CLERK 10/14/2023 7:22 AM GUEST HISTORY CLERK us Erik Chairez MD CHEMISTRY ORDERABLES Final Resul t Performing Organization Address City/[facility]/ZIP Co de Phone Number [facility]# [id number] [address] [place] [address] * (ABNORMAL) CBC WITH DIFFERENTIAL (10/14/2023 2:35 AM GUEST HISTORY CLERK) [facility] WBC 9.2 4.5 - 10.5 K/uL 10/14/2023 8:[address] [facility] LABORAT[facility] RBC 3.58(L) 4.50 - 5.40 M/uL 10/14/2023 8:02 AM [facility] HEMOGLOBIN 11.0(L) 13.6 - 16.5 g/dL 10/14/2023 8:[address] [facility] HEMATOCRIT 33.5(L) 40.0 - 48.0 % 10/14/2023 8:[address] [facility] LABOR[facility] MCV 93.6 82.0 - 99.0 fL 10/14/2023 8:[address] [facility] MCH 30.6 27.8 - 34.5 pg 10/14/2023 8:[address] [facility] [employer] [facility] MCHC 32.7 32.5 - 35.5 g/dL 10/14/2023 8:[address] [facility] [employer] [facility] RDW 17.7(H) 11.5 - 14.5 % 10/14/2023 8:[address] [facility] PLATELETS 214 160 - 420 K/uL 10/14/2023 8:[address] [facility] [employer] [facility] MPV 9.2 8.7 - 12.7 fL 10/14/2023 8:[address] [facility] [employer] [facility] NEUTROPHILS 58 % 10/14/2023 8:[address] [facility] LABORATORY [facility] LYMPHOCYTES 24 % 10/14/2023 8:[address] [facility] LABORAT[facility] MONOCYTES 8 % 10/14/2023 8:02 AM GUEST HISTORY CLERK [facility] LABORATORY [facility] EOSINOPHILS 9 % 10/14/2023 8:[address] [facility] BASOPHILS 0 % 10/14/2023 8:[address] [facility] LAB[facility] NEUTROPHIL ABSOLUTE 5.40 1.90 - 7.00 K/uL 10/14/2023 8:[address] [facility] [employer] [facility] LYMPHOCYTE ABSOLUTE 2.20 0.70 - 4.50 K/uL 10/14/2023 8:[address] [facility] LABORAT[facility] MONOCYTE ABSOLUTE 0.70 0.10 - 1.30 K/uL 10/14/2023 8:02 AM [facility] EOSINOPHIL ABSOLUTE 0.90(H) 0.00 - 0.70 K/uL 10/14/2023 8:[address] [facility] LABORAT[facility] BASOPHILS ABSOLUTE 0.00 0.00 - 0.20 K/uL 10/14/2023 8:02 AM [facility] Blood Collection / Unknown 10/14/2023 2:35 AM GUEST HISTORY CLERK 10/14/2023 7:22 AM GUEST HISTORY CLERK Erik Chairez MD HEMATOLOGY ORDERABLES Final Resu lt [facility] CLIA# [id number] [place] [address] * (ABNORMAL) COMPREHENSIVE METABOLIC PANEL (10/14/2023 2:35 AM GUEST HISTORY CLERK) SODIUM 135(L) 136 - 145 mmol/L 10/14/2023 8:26 AM [facility] POTASSIUM 4.0 3.4 - 5.1 mmol/L 10/14/2023 8:26 AM [facility] CHLORIDE 97(L) 98 - 107 mmol/L 10/14/2023 8:26 AM [facility] CO2 24 22 - 29 mmol/L 10/14/2023 8:26 AM [facility] CALCIUM 9.5 8.6 - 10.4 mg/dL 10/14/2023 8:26 AM [facility] BUN 36(H) 6 - 20 mg/dL 10/14/2023 8:26 AM [facility] CREATININE 1.18(H) 0.67 - 1.17 mg/dL 10/14/2023 8:[address] [facility] [employer] [facility] Comment:The GFR result is no t clinically significant on patients <18 or >70 years of age. GLUCOSE 84 74 - 99 mg/dL 10/14/2023 8:26 AM [facility] TOTAL PROTEIN 7.4 6.3 - 8.7 g/dL 10/14/2023 8:26 AM [facility] ALBUMIN 3.6 3.5 - 5.2 g/dL 10/14/2023 8:26 AM [facility] BILIRUBIN TOTAL 0.6 0.2 - 1.1 mg/dL 10/14/2023 8:26 AM [facility] ALKALINE PHOSPHATASE 99 40 - 150 U/L 10/14/2023 8:26 AM [facility] AST 22 0 - 41 U/L 10/14/2023 8:26 AM [facility] ALT 16 0 - 41 U/L 10/14/2023 8:26 AM [facility] GFR >60 mL/min/1.7 3 sq meter 10/14/2023 8:26 AM [facility] Comment:eGFR calculated with 2020 CKD-EPI equation. Vegetarian diet, extremely high or low muscle mass, and may affect results. Cystatin C with Glomerular Filtration Rate is a suitable alternative for these patients. ANION GAP 14 8 - 16 mmol/L 10/14/2023 8:26 AM [facility] Blood Collection / Unknown 10/14/2023 2:35 AM GUEST HISTORY CLERK 10/14/2023 7:22 AM GUEST HISTORY CLERK us Erik Chairez MD CHEMISTRY ORDERABLES Final Resul t [facility] CLIA# [id number] [address] [place] [address] documented in this encounter Visit Diagnoses Not on filedocumented in this encounter Additional Health Concerns Infection Onset Date Last Indicated Resolved Time CRE-CP Comment:10/09/23 Klebsiella pneumoniae, Sputum 10/09/2023 10/09/2023 05/28/2024 2:37 PM C DT Multi Drug Resistant Organis m (MDRO) Comment:10/09/23 Klebsiella pneumoniae, CRE-CP organism, Sputum 10/09/2023 10/09/2023 PRINCIPAL EMBEDDED SOFTWARE ENGINEER-CP Comment:10/09/23 Klebsiella pneumoniae, Sputum 10/09/2023 05/28/2024 documented as of this encounter
--- OUTSIDE RECORDS SUMMARY | 2025-04-23 12:59 | XMS_ITS | Encounter Summary ---
Author Organization [facility] Address [address] [place] [address] Care Team Providers Care Electric Arc Welder Name Role Phone Unavailable Primary Care Provider Unavailabl e Encounter Details Date Type Department Care Team (Late st Contact Info) Description 10/29/2023 Lab Requisition [facility] Laboratory Services [address] [place] [address] [place] [id number] [place] [address] Social History Tobacco Use Types Packs/Day Years Used Date Smoking Tobacco: Never Assessed Sex and Gender Information Value Date Recorded Sex Assigned at Not on file Legal Sex Male 9:18 AM MUSIC ARRANGER Gender Identity Not on file Sexual Orientation Not on file documented as of this encounter Plan of Treatment Not on file documented as of this encounter Procedures Procedure Name Priority Date/Time Associated Diagnosis Comments CBC WITH DIFFERENTIAL Routine 10/29/2023 3:20 AM MUSIC ARRANGER BASIC METABOLIC PANEL Routine 10/29/2023 3:20 AM MUSIC ARRANGER documented in this encounter Results * (ABNORMAL) CBC WITH DIFFERENTIAL (10/29/2023 3:20 AM MUSIC ARRANGER) WBC 8.0 4.5 - 10.5 K/uL 10/29/2023 8:18 AM MUSIC ARRANGER [facility] - [facility] RBC 3.85(L) 4.50 - 5.40 M/uL 10/29/2023 8:18 AM MUSIC ARRANGER [facility] HEMOGLOBIN 11.6(L) 13.6 - 16.5 g/dL 10/29/2023 8:18 AM MUSIC ARRANGER [facility] HEMATOCRIT 35.7(L) 40.0 - 48.0 % 10/29/2023 8:18 AM MUSIC ARRANGER [facility] MCV 92.6 82.0 - 99.0 fL 10/29/2023 8:18 AM MUSIC ARRANGER [facility] - [facility] MCH 30.0 27.8 - 34.5 pg 10/29/2023 8:18 AM MUSIC ARRANGER [facility] MCHC 32.4(L) 32.5 - 35.5 g/dL 10/29/2023 8:18 AM MUSIC ARRANGER [facility] RDW 17.3(H) 11.5 - 14.5 % 10/29/2023 8:18 AM MUSIC ARRANGER [facility] PLATELETS 255 160 - 420 K/uL 10/29/2023 8:18 AM MUSIC ARRANGER [facility] MPV 9.9 8.7 - 12.7 fL 10/29/2023 8:18 AM MUSIC ARRANGER [facility] NEUTROPHILS 61 % 10/29/2023 8:18 AM MUSIC ARRANGER [facility] LYMPHOCYTES 22 % 10/29/2023 8:18 AM MUSIC ARRANGER [facility] MONOCYTES 6 % 10/29/2023 8:18 AM MUSIC ARRANGER [facility] EOSINOPHILS 11 % 10/29/2023 8:18 AM MUSIC ARRANGER [facility] BASOPHILS 1 % 10/29/2023 8:18 AM MUSIC ARRANGER [facility] NEUTROPHIL ABSOLUTE 4.90 1.90 - 7.00 K/uL 10/29/2023 8:18 AM MUSIC ARRANGER [facility] LYMPHOCYTE ABSOLUTE 1.70 0.70 - 4.50 K/uL 10/29/2023 8:18 AM MUSIC ARRANGER [facility] MONOCYTE ABSOLUTE 0.50 0.10 - 1.30 K/uL 10/29/2023 8:18 AM MUSIC ARRANGER [facility] EOSINOPHIL ABSOLUTE 0.80(H) 0.00 - 0.70 K/uL 10/29/2023 8:18 AM MUSIC ARRANGER [facility] BASOPHILS ABSOLUTE 0.00 0.00 - 0.20 K/uL 10/29/2023 8:18 AM [facility] Blood Collection / Unknown 10/29/2023 3:20 AM MUSIC ARRANGER 10/29/2023 7:59 AM MUSIC ARRANGER Erik Chairez MD HEMATOLOGY ORDERABLES Final Resu lt [facility] CLIA# [id number] [place] [address] * (ABNORMAL) BASIC METABOLIC PANEL (10/29/2023 3:20 AM MUSIC ARRANGER) SODIUM 141 136 - 145 mmol/L 10/29/2023 8:38 AM [facility] POTASSIUM 4.5 3.4 - 5.1 mmol/L 10/29/2023 8:38 AM [facility] CHLORIDE 101 98 - 107 mmol/L 10/29/2023 8:38 AM [facility] CO2 28 22 - 29 mmol/L 10/29/2023 8:38 AM [facility] CALCIUM 10.2 8.6 - 10.4 mg/dL 10/29/2023 8:38 AM [facility] BUN 42(H) 6 - 20 mg/dL 10/29/2023 8:38 AM [facility] CREATININE 1.05 0.67 - 1.17 mg/dL 10/29/2023 8:38 AM [facility] Comment:The GFR result is no t clinically significant on patients <18 or >70 years of age. GLUCOSE 112(H) 74 - 99 mg/dL 10/29/2023 8:38 AM [facility] GFR >60 mL/min/1.7 3 sq meter 10/29/2023 8:38 AM [facility] Comment:eGFR calculated with 2020 CKD-EPI equation. Vegetarian diet, extremely high or low muscle mass, and may affect results. Cystatin C with Glomerular Filtration Rate is a suitable alternative for these patients. ANION GAP 12 8 - 16 mmol/L 10/29/2023 8:38 AM MUSIC ARRANGER [facility] Blood Collection / Unknown 10/29/2023 3:20 AM MUSIC ARRANGER 10/29/2023 7:59 AM MUSIC ARRANGER Erik Chairez MD CHEMISTRY ORDERABLES Final Resul t 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
--- OUTSIDE RECORDS SUMMARY | 2025-04-23 12:59 | XMS_ITS | Encounter Summary ---
Author Organization [employer] [facility] Address [address] [place] [address] Care Team Providers Care Railroad Auditor Name Role Phone Unavailable Primary Care Provider Unavailabl e Encounter Details Date Type Department Care Team (Late st Contact Info) Description 10/11/2023 Lab Requisition [facility] Laboratory Services [address] [place] [address] [place] [address] [place] [address] Social History Tobacco Use Types Packs/Day Years Used Date Smoking Tobacco: Never Assessed Sex and Gender Information Value Date Recorded Sex Assigned at Not on file Legal Sex Male 9:18 AM PLYWOOD LAYUP LINE BACK FEEDER Gender Identity Not on file Sexual Orientation Not on file documented as of this encounter Plan of Treatment Not on file documented as of this encounter Procedures Procedure Name Priority Date/Time Associated Diagnosis Comments CBC WITH DIFFERENTIAL Routine 10/11/2023 3:30 AM PLYWOOD LAYUP LINE BACK FEEDER TRIGLYCERIDE Routine 10/11/2023 3:30 AM [employer]WO[employer] BACK FEEDER MAGNESIUM LEVEL Routine 10/11/2023 3:30 AM [employer]YWOOD L[employer] BACK FEEDER RENAL FUNCTION PANEL Routine 10/11/2023 3:30 AM PLYWOOD LAYUP LINE BACK FEEDER documented in this encounter Results * (ABNORMAL) TRIGLYCERIDE (10/11/2023 3:30 AM PLYWOOD LAYUP LINE BACK FEEDER) TRIGLYCERIDE 192(H) <150 mg/dL 10/11/2023 6:28 AM PLYWOOD LAYUP LINE BACK FEEDER [facility] Blood 10/11/2023 3:30 AM PLYWOOD LAY[employer] LINE BACK FEEDER 10/11/2023 5:43 AM PLYWOOD LAYUP LINE BACK FEEDER Narrative [facility] [employer] [facility] - 10/11/2023 6:28 AM PLYWOOD LAYUP LINE BACK FEEDER TRIGLYCERIDES mg/dL Normal < 150 Borderline High 150 - 199 High 200 - 499 Very High >= 500 Based on AHA/NCEP Guidelines. Erik Chairez MD CHEMISTRY ORDERABLES Final Resul t Performing Organization Address City/[facility]/ZIP Co de Phone Number [facility] CLIA# [id number] [place] [address] * MAGNESIUM LEVEL (10/11/2023 3:30 AM PLYWOOD L[employer] BACK FEEDER) MAGNESIUM 2.2 1.6 - 2.6 mg/dL 10/11/2023 6:28 AM [facility] Blood 10/11/2023 3:30 AM PLYWOOD LAY[employer] LINE BACK FEEDER 10/11/2023 5:43 AM [employer]YWO[employer] LAY[employer] BACK FEEDER Erik Chairez MD CHEMISTRY ORDERABLES Final Resul t Performing Organization Address City/[facility]/ZIP Co de Phone Number [facility] CLIA# [id number] [place] [address] * (ABNORMAL) CBC WITH DIFFERENTIAL (10/11/2023 3:30 AM PLYWOOD LAYUP LINE BACK FEEDER) WBC 8.8 4.5 - 10.5 K/uL 10/11/2023 6:05 AM [facility] [employer] [facility] RBC 3.43(L) 4.50 - 5.40 M/uL 10/11/2023 6:05 AM [facility] [employer] [facility] HEMOGLOBIN 10.5(L) 13.6 - 16.5 g/dL 10/11/2023 6:05 AM [facility] HEMATOCRIT 32.7(L) 40.0 - 48.0 % 10/11/2023 6:05 AM [facility] MCV 95.4 82.0 - 99.0 fL 10/11/2023 6:05 AM [facility] MCH 30.7 27.8 - 34.5 pg 10/11/2023 6:05 AM [facility] LABORAT[facility] MCHC 32.2(L) 32.5 - 35.5 g/dL 10/11/2023 6:05 AM [facility] RDW 18.7(H) 11.5 - 14.5 % 10/11/2023 6:05 AM [facility] PLATELETS 218 160 - 420 K/uL 10/11/2023 6:05 AM [facility] MPV 9.3 8.7 - 12.7 fL 10/11/2023 6:05 AM [employer] BACK FEEDER [facility] NEUTROPHILS 67 % 10/11/2023 6:05 AM [employer] L[employer] BACK FEEDER [facility] LYMPHOCYTES 18 % 10/11/2023 6:05 AM [employer] L[employer] BACK FEEDER [facility] MONOCYTES 7 % 10/11/2023 6:05 AM [employer] L[employer] BACK FEEDER [facility] EOSINOPHILS 7 % 10/11/2023 6:05 AM [facility] BASOPHILS 1 % 10/11/2023 6:05 AM [employer] BACK FEEDER [facility] NEUTROPHIL ABSOLUTE 5.90 1.90 - 7.00 K/uL 10/11/2023 6:05 AM [facility] LYMPHOCYTE ABSOLUTE 1.60 0.70 - 4.50 K/uL 10/11/2023 6:05 AM [facility] MONOCYTE ABSOLUTE 0.60 0.10 - 1.30 K/uL 10/11/2023 6:05 AM [facility] EOSINOPHIL ABSOLUTE 0.60 0.00 - 0.70 K/uL 10/11/2023 6:05 AM [employer]YWO[employer] LAY[employer] BACK FEEDER [facility] BASOPHILS ABSOLUTE 0.10 0.00 - 0.20 K/uL 10/11/2023 6:05 AM [facility] Blood 10/11/2023 3:30 AM PLYWOOD LAY[employer] BACK FEEDER 10/11/2023 5:43 AM PLYWOOD LAYUP LINE BACK FEEDER us Erik Chairez MD HEMATOLOGY ORDERABLES Final Resu lt [facility] CLIA# [id number] [address] [place] [address] * (ABNORMAL) RENAL FUNCTION PANEL (10/11/2023 3:30 AM PLYWOOD LAYUP LINE BACK FEEDER) SODIUM 145 136 - 145 mmol/L 10/11/2023 6:28 AM [facility] [employer] [facility] POTASSIUM 4.0 3.4 - 5.1 mmol/L 10/11/2023 6:28 AM [facility] CHLORIDE 106 98 - 107 mmol/L 10/11/2023 6:28 AM [facility] CO2 26 22 - 29 mmol/L 10/11/2023 6:28 AM [facility] CALCIUM 9.3 8.6 - 10.4 mg/dL 10/11/2023 6:28 AM [facility] BUN 38(H) 6 - 20 mg/dL 10/11/2023 6:28 AM [facility] CREATININE 1.38(H) 0.67 - 1.17 mg/dL 10/11/2023 6:28 AM [facility] Comment:The GFR result is no t clinically significant on patients <18 or >70 years of age. GLUCOSE 85 74 - 99 mg/dL 10/11/2023 6:28 AM [facility] ALBUMIN 3.4(L) 3.5 - 5.2 g/dL 10/11/2023 6:28 AM [facility] PHOSPHORUS 3.9 2.5 - 4.5 mg/dL 10/11/2023 6:28 AM [facility] GFR 51 mL/min/1.7 3 sq meter 10/11/2023 6:28 AM [facility] Comment:eGFR calculated with 2020 CKD-EPI equation. Vegetarian diet, extremely high or low muscle mass, and may affect results. Cystatin C with Glomerular Filtration Rate is a suitable alternative for these patients. 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
[2025-04-23 13:39] LABS: Hematocrit 37.9 % (42.0-52.0); Hemoglobin 12.3 g/dL (14.0-18.0); Immature Granulocyte Percent A 0.4 % (0-0.5); Lymphocytes Absolute Auto 1.91 K/mm3 (0.9-3.2); Mean Corpuscular HGB Conc 32.5 g/dl (32-36); Mean Corpuscular Hemoglobin 30.8 pg (26-34); Mean Corpuscular Volume 94.8 fl (80-100); Nucleated Red Blood Cells Absolute Auto 0.000 K/mm3 (0.0-0.012); Nucleated Red Blood Cells Perc 0.0 % (0.0-0.2); Platelet Count Result 224 k/mm3 (150-375); Red Blood Count 4.00 M/mm3 (4.6-6.20); White Blood Count 7.4 K/mm3 (4.5-10.0)
[2025-04-23 14:01] LABS: Anion Gap 8 mmol/L (4-12); Blood Urea Nitrogen 25 mg/dL (9-20); Calcium 9.5 mg/dL (8.4-10.2); Carbon Dioxide 26 mmol/L (22-30); Chloride 104 mmol/L (98-107); Estimated Glomerular Filt Rate 45; Glucose 111 mg/dL (65-110); Potassium 4.0 mmol/L (3.4-5.0); Sodium 138 mmol/L (137-145)
== END 2025-04-23 12:56 | disposition home or self-care (01) ==
PROVIDERS: PCP Family Medicine
DX: L03.90 Cellulitis, unspecified (principal); I10 Essential (primary) hypertension
CPT/HCPCS: 36415; 80048; 85025

== ENCOUNTER 2025-04-30 08:04 | Emergency (ER) | payer MEDICARE, SELFPAY ==
[2025-04-30] VITALS (17 sets, daily range): BP systolic 104–137; BP diastolic 62–84; PULSE 68–89; RESP 12–21; TEMP 36.5–37; O2SAT 96–100
--- OUTSIDE RECORDS SUMMARY | 2025-04-30 08:08 | XMS_ITS | Encounter Summary ---
Author Organization [facility] Address [facility] [place] [address] Care Team Providers Care Button Pusher Name Role Phone Demond Stark MD Primary Care Provider [phone] Encounter Details Date Type Department Care Team (Late Contact Info) Description 06/28/2023 Lab Requisition [facility] [address] [place] [phone] Jaxon Anaya MD [address] [place], [place] [id number] Social History Tobacco Use Types Packs/Day Years Used Date Smoking Tobacco: Former Cigarettes Q uit: 09/23/1969 Smokeless Tobacco: Never Alcohol Use Standard Drinks/Week Comments Yes 0 (1 standard drink = 0.6 oz pur e alcohol) Sex and Gender Information Value Date Recorded Sex Assigned at Not on file Legal Sex Male 5:43 PM JOURNEYMAN GLAZIER Gender Identity Not on file Sexual Orientation Not on file documented as of this encounter Plan of Treatment Upcoming Encounters Date Type Department Care Team (Late Contact Info) Description 02/04/2026 9:00 AM CDT Office Visit [facility] [address] [place] [phone] Callie Mendoza DO [address] [facility] [address] FLO[address] [place] [phone] documented as of this encounter Procedures Procedure Name Priority Date/Time Associated Diagnosis Comments DERMATOPATHOLOGY Routine 06/26/2023 12:0 0 AM CDT documented in this encounter Results * DERMATOPATHOLOGY (06/26/2023 12:00 AM CDT) Case Report Dermatopathology Report Case: [id number] Authorizing Provider: Jaxon Anaya MD Collected: 06/26/2023 12:00 AM Ordering Location: [facility] DermPath Lab Received: 06/28/2023 09:48 AM Pathologist: Mackenzie Ureña MD Specimen: Skin, right paraspinal mid back 4:58 PM CDT DERMATOPATHOLOGY LABORATORY Final Diagnosis Specimen A. SKIN, right paraspinal mid back: EPIDERMOID CYST WITH EVIDENCE OF RUPTURE (L72.0) 4:58 PM CDT DERMATOPATHOLOGY LABORATORY at 1658 CDT Clinical History R/O Cyst 4:58 PM CDT DERMATOPATHOLOGY LABORATORY Gross Description Specimen A: Received is one formalin filled container labeled with the patient's name and designated right paraspinal mid back.The specimen consists of an ellipse measuring [id number] mm and is oriented with the suture/notch [...] characteristic determined by the Dermatopathology Laboratory at [facility], directed by Dr. Georgina Young. These tests need not be, and therefore are not, approved by the [place] Food and Drug Administration. The tests are used for clinical purposes. Billing Codes Specimen Charges Stain Charges 36692 1 3 4:58 PM CDT DERMATOPATHOLOGY LABORATORY Embedded Images 3 4:58 PM CDT DERMATOPATHOLOGY LABORATORY Pathology/Cytolog y TISSUE SPECIMEN FROM SKIN / Unknown 06/26/2023 06/28/2023 9:48 AM CDT Jaxon Anaya MD LAB - PATHOLOGY/CYTOLOGY ORD ERABLES Final Result DERMATOPATHOLOGY LABORATORY [facility] - Department of Dermatology [facility] [address] [place] [address], [address] [phone] documented in this encounter Visit Diagnoses Not on filedocumented in this encounter Care Teams Button Pusher Relationship Specialty Start Date End Date Demond Stark MD [address] [place] [address] PCP - General 10/03/15 documented as of this encounter
--- OUTSIDE RECORDS SUMMARY | 2025-04-30 08:08 | XMS_ITS | Continuity of Care Document ---
Author Organization [facility] Address [address] [place] [address] [place] [address] Phone Care Team Providers Care Career Guidance Technician Name Role Phone Karsten Mason MD Unavailable Unavailable Procedures Procedure Date Office/outpatient Visit, [facility] Advance Directives Directive Yes / No Effective Date File Name No Information Encounters Encounter Description Practice Location Reason(s) For Visit Diagnoses Date Provider Providers Copied on Encounter Office/outpat ient Visit, [facility], [id number] [place] [address] [address], [place], [place], [id number], [place] tel:[phone] [facility] No Information [phone] Isabella Shelley. [address] [facility], [place], [place], [id number], [place]. tel:[phone] Family History Family Member Type Diagnosis Age At Onset No Information Payers Payer name Insurance type Covered democrat ID Authoriza tion(s) Medicare [facility] [id number] Social History Type Description Quantity Date Captured [...]
--- OUTSIDE RECORDS SUMMARY | 2025-04-30 08:08 | XMS_ITS | Encounter Summary ---
Author Organization [facility] Address [facility] [place] [address] Care Team Providers Care Spinning Bath Patroller Name Role Phone Demond Stark MD Primary Care Provider Reason for Referral * Radiology Services (Routine) - Closed Specialty Diagnoses / Procedures Referred By Bhavnaac saskia Referred To Contact Fluoroscopy Diagnoses Zenker's diverticulum Procedures FL Esophagram Callie Mendoza DO [address] [facility] [address] [place] [address] Phone: tel: fax: Referral ID Status Reason Start Date Expiration Date Visits Re quested Visits Authorized [id number] Closed 02/05/2025 02/05/2026 1 1 Reason for Visit * Radiology Services (Routine) - Closed Specialty Diagnoses / Procedures Referred By Rosa kruger Referred To Contact Fluoroscopy Diagnoses Zenker's diverticulum Procedures FL Esophagram Callie Mendzoa DO [address] [facility] [address] [place] [address] Phone: tel: fax: Referral ID Status Reason Start Date Expiration Date Visits Re quested Visits Authorized [id number] Closed 02/05/2025 02/05/2026 1 1 Encounter Details Date Type Department Care Team (Latest Contact Info) Description 04/29/2025 9:13 AM CDT - 04/29/2025 11:59 PM CDT Hospital Encounter [facility] DIAGNOSTIC RAD [address] [place] [phone] Callie Mendoza DO [address] [facility] [address] [place] [address] Discharge Disposition: Home or Self Care Social History Tobacco Use Types Packs/Day Years [...] and heating? Not hard at all 12/25/2024 [facility] - Occupational Stress [...] any time in the past 12 m [facility], were you homeless or living in a [place] [facility] [place] facility (including now)? 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 Male 5:43 PM ADMINISTRATOR Gender Identity Not on file Sexual Orientation Not on file documented as of this encounter Functional Status * Is person deaf or have serious hearing difficulty? Answer Date of Assessment Author Yes 12/25/2024 3:25 PM Rosario Jonas RN * Is person blind or have serious difficulty seeing? Answer Date of Assessment Author No 12/25/2024 3:25 PM Rosario Jonas RN * Does person have serious difficulty walking/climbing stairs? Answer Date of Assessment Author No 12/25/2024 3:25 PM Rosario Jonas RN * Does person have difficulty dressing/bathing? Answer Date of Assessment Author No 12/25/2024 3:25 PM Rosario Jonas RN * Does person have difficulty doing errands alone? Answer Date of Assessment Author Yes 12/25/2024 3:25 PM Rosario Jonas RN documented as of this encounter Mental Status * Does person have difficulty concentrating/remembering/making decisions? Answer Entry Date Author No 12/25/2024 3:25 PM Rosario Jonas RN documented in this encounter Medications at Time of Discharge amoxicillin (Amoxil) 250 MG capsule Take 1 (one) capsule by mouth 3 times daily Dental work 02/04/2025 aspirin EC (Ecotrin) 81 MG tablet Take 2 (two) tablets by mouth once daily docusate sodium (Docuprene) 100 MG tablet Take 0.5 (one-half) tablet by mouth 2 times daily famotidine (Pepcid) 20 MG tablet Take 1 (one) tablet by mouth once daily folic acid 400 MCG tablet Take 1 (one) tablet by mouth once daily loratadine (Claritin) 10 MG tablet Take 1 (one) tablet by mouth once daily polyethylene glycol 3350 (Miralax) 17 GM/SCOOP powder Take 17 (seventeen) g by mouth once daily pyridoxine (Vitamin B-6) 50 MG tablet Take 1 (one) tablet by mouth once daily rivaroxaban (Xarelto) 20 MG tablet Take by mouth daily with food documented as of this encounter Plan of Treatment Upcoming Encounters Date Type Department Care Team (Late st Contact Info) Description 02/04/2026 9:00 AM CDT Office Visit [facility] - GI [address] [facility], [place] [phone] KellyCallie [address] [facility] [address] F[address] [place] [phone] documented as of this encounter Goals Goal Patient Goal Type Associated Problems Recent Progress Patient-Stated? Author Nutrition General On track( 025 8:41 AM CDT) Yohaan Gomez, MANUEL Note: Expected end date: Working on plan Nutritional status is maintained or improving. Interventions: Take nutritional supplements as ordered Collaborate with the clinical entry level marketing assistant Oral care Use soft toothbrushes Keep hydrated documented as of this encounter Procedures Procedure Name Priority Date/Time Associated Diagnosis Comments FL ESOPHAGRAM Routine 04/29/2025 10:42 AM CDT Zenker's diverticulum documented in this encounter Results * FL Esophagram (04/29/2025 10:42 AM CDT) Anatomical Region Laterality Modality Chest Digital Radiogra phy 04/29/2025 4:01 PM CDT Impressions 04/29/2025 4:18 PM CDT IMPRESSION: Marked improvement following POEM procedure compared to preoperative exam. > Interpreting Provider: Isabel Garcia MD on 04/29/2025 4:18 PM Narrative 04/29/2025 4:18 PM CDT PROCEDURE: FL ESOPHAGRAM DATE/TIME OF EXAM: 04/29/2025 10:45 AM CLINICAL INFORMATION: None relevant/not provided if blank. Indication: K22.5: Zenker's diverticulum Additional History: POEM procedure on 12/22/2024. Assess esophagus after Zenker's diverticulotomy procedure. COMPARISON: Preoperative exam 12/07/2024. TECHNIQUE: Fluoroscopic images were obtained while the patient drank thin barium. FLUOROSCOPY DOSE: 15.2 mGy Reference air kerma (ka,r). FINDINGS: There is significant decrease in size of the diverticulum when compared to the preoperative exam, currently having a length of 1.2 cm and a depth of 0.7 cm. The diverticulum has a broad neck and does not retain contrast. Further, there is no mass effect on the cervical esophagus at this level which had been severe on the preoperative exam. There is minimal aspiration, otherwise swallowing is normal. Procedure Note Isabel Garcia MD - 04/29/2025 PROCEDURE: FL ESOPHAGRAM DATE/TIME OF EXAM: 04/29/2025 10:45 AM CLINICAL INFORMATION: None relevant/not provided if blank. Indication: K22.5: Zenker's diverticulum Additional History: POEM procedure on 12/22/2024. Assess esophagus after Zenker'sdiverticulotomy procedure. COMPARISON: Preoperative exam 12/07/2024. TECHNIQUE: Fluoroscopic images were obtained while the patient drank thin barium. FLUOROSCOPY DOSE: 15.2 mGy Reference air kerma (ka,r). FINDINGS: There is significant decrease in size of the diverticulum when comparedto the preoperative exam, currently having a length of 1.2 cm and a depthof 0.7 cm. The diverticulum has a broad neck and does not retain contrast. Further, there is no mass effect on the cervical esophagus at this level which had been severe on the preoperative exam. There is minimal aspiration, otherwise swallowing is normal. IMPRESSION: Marked improvement following POEM procedure compared to preoperativeexam. > Interpreting Provider: Isabel Garcia MD on 04/29/2025 4:18 PM Calliejoycelyn Mendoza DO FLUOROSCOPY ORDERABLES Final Res ult documented in this encounter Visit Diagnoses Diagnosis Zenker's diverticulum Diverticulum of esophagus, acquired documented in this encounter Administered Medications Inactive Administered Medications - up to 3 most recent administrations Medication Order MAR Action Action Date Dose Rate Site barium (Liquid E-Z-Paque) 60 % suspension Oral, ONCE, 1 dose, On Effie 04/29/25 at 1100, . WASTE DISPOSAL INSTRUCTIONS: Black Bin Disposal required. $ Given - Contrast 04/29/2025 10:30 AM CDT 155 oz documented in this encounter Care Teams Spinning Bath Patroller Relationship Specialty Start Date End Date Demond Stark MD [address] [place] [address] PCP - General 10/03/15 documented as of this encounter
--- OUTSIDE RECORDS SUMMARY | 2025-04-30 08:08 | XMS_ITS | Encounter Summary ---
Author Organization [facility] Address [facility]3 [facility] [place] [address] Care Team Providers Care Stem Maker Name Role Phone Demond Stark MD Primary Care Provider [phone] Encounter Details Date Type Department Care Team (Late Contact Info) Description 06/13/2023 Lab Requisition [facility] - DermPath Lab [address] [place] [phone] Jaxon Anaya MD [address] [place], [place] [id number] Social History Tobacco Use Types Packs/Day Years Used Date Smoking Tobacco: Former Cigarettes Q uit: 09/23/1969 Smokeless Tobacco: Never Alcohol Use Standard Drinks/Week Comments Yes 0 (1 standard drink = 0.6 oz pur e alcohol) Sex and Gender Information Value Date Recorded Sex Assigned at Not on file Legal Sex Male 5:43 PM 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 Gender Identity Not on file Sexual Orientation Not on file documented as of this encounter Plan of Treatment Upcoming Encounters Date Type Department Care Team (Late Contact Info) Description 02/04/2026 9:00 AM CDT Office Visit [facility] - GI [address] [place] [phone] Callie Mendoza DO [address] [facility] [address] FLO[address] 1 [place] [phone] documented as of this encounter Procedures Procedure Name Priority Date/Time Associated Diagnosis Comments DERMATOPATHOLOGY Routine 06/12/2023 12:0 0 AM CDT documented in this encounter Results * DERMATOPATHOLOGY (06/12/2023 12:00 AM CDT) Case Report Dermatopathology Report Case: [id number] Authorizing Provider: Jaxon Anaya MD Collected: 06/12/2023 12:00 AM Ordering Location: [facility] Lab Received: 06/13/2023 01:28 PM Pathologist: Meliza Womack MD Specimen: Skin, mid medial left thigh 3:42 PM CDT DERMATOPATHOLOGY LABORATORY Final Diagnosis Specimen A. 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 The specimen consists of a shave biopsy measuring [id number] mm. Jar 0. 3:42 PM CDT DERMATOPATHOLOGY [...] determined by the Dermatopathology Laboratory at [facility], directed by Dr. Georgina Young. These tests need not be, and therefore are not, approved by the [place] Food and Drug Administration. The tests are used for clinical purposes. Billing Codes Specimen Charges Stain Charges 34995 1 18436 1 3 3:42 PM CDT DERMATOPATHOLOGY LABORATORY Embedded Images 3 3:42 PM CDT DERMATOPATHOLOGY LABORATORY Pathology/Cytolog y TISSUE SPECIMEN FROM SKIN / Unknown 06/12/2023 06/13/2023 1:28 PM CDT Jaxon Anaya MD LAB - PATHOLOGY/CYTOLOGY ORD ERABLES Final Result DERMATOPATHOLOGY LABORATORY [facility] - Department of Dermatology [facility] Medicine [address] [place] [address], [address] [phone] documented in this encounter Visit Diagnoses Not on filedocumented in this encounter Care Teams Stem Maker Relationship Specialty Start Date End Date Demond Stark MD [address] [place] [address] PCP - General 10/03/15 documented as of this encounter
--- OUTSIDE RECORDS SUMMARY | 2025-04-30 08:08 | XMS_ITS | Clinical Summary ---
Author Organization [facility] Address [address] [place] [address] Care Team Providers Care School Bus Attendant Name Role Phone Demond Stark MD Primary Care Provider [phone] Source Comments [facility],non-owned Affiliates and Associated Physician Practices is amultiple site organization consisting of ambulatory clinics and hospital sitesin [place], [place], [place] and [place]. This disclosure is being madepursuant to the Care Everywhere program and may not contain all information available regarding this patient. Last updated 18.[facility] Allergies Active Allergy Reactions Criticality Noted Date [...] 07/20/2013 Overview (01/01/2025): Hypertension Coronary arteriosclerosis in [place] artery 12/20 Overview (01/01/2025): IRENE [facility]UL[facility] 2010: Non STEMI and CABG x3 (HOBSON to the LAD, sequential RA to OM and D1) History of coronary artery bypass surgery 2009 Overview (01/01/2025): AORTOCORONARY BYPASS Encounters Date Type Department Care Team Description 04/29/2025 1:00 PM CDT Office Visit [facility] - Neurology [address] [facility], [place] [address] Callie Mendoza DO Sett[employer], [place], INSULATION WORKER FURNACE INSTALLER-ENTOMOLOGY PROFESSOR Chronic subdural hematoma (HCC) (Primary Dx) 04/29/2025 9:13 AM CDT - 04/29/2025 11:59 PM CDT Hospital Encounter [facility] DIAGNOSTIC RAD [address] [place] [address] Callie Mendoza DO Discharge Disposition: Home or Self Care 04/29/2025 Travel 02/05/2025 8:30 AM CDT Office Visit [facility] - GI [address] [facility], [place] [address] Callie Mendoza DO Zenker's diverticulum (Primary Dx); [...] and heating? Not hard at all 12/25/2024 [facility] Health - Occupational Stress [...] any time in the past 12 m [facility], were you homeless or living in a [facility] (including now)? 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 Gender Identity Not on file Sexual Orientation Not on file Last Filed Vital Signs Vital Sign Reading Time Taken Comments Blood Pressure 100/66 04/29/2025 1:09 PM CDT Pulse 86 04/29/2025 1:09 PM CDT Temperature 36.7 C (98.1 F) 02/05/2025 8:40 AM CDT Respiratory Rate 15 12/25/2024 11:32 AM CDT Oxygen Saturation 97% 04/29/2025 1:09 PM CDT Inhaled Oxygen Concentration - - Weight 94.3 kg (208 lb) 04/29/2025 1:09 PM CDT Height 182.9 cm (6') 04/29/2025 1:09 PM CDT Body Mass Index 28.21 04/29/2025 1:09 PM CDT Plan of Treatment Upcoming Encounters Date Type Department Care Team (Late st Contact Info) Description 02/04/2026 9:00 AM CDT Office Visit [facility] - GI [address] [facility], [place] [phone] Callie Mendoza DO [address] [facility] [address] FLO[address] [place] [address] Health Maintenance Due Date Last [...] supplements as ordered Collaborate with the clinical cardiopulmonary technician and eeg tech Oral care Use soft toothbrushes Keep hydrated Procedures Procedure Name Priority Date/Time Associated Diagnosis Comments FL ESOPHAGRAM Routine 04/29/2025 10:42 AM CDT Zenker's diverticulum from Last 3 Months Results * FL Esophagram (04/29/2025 10:42 AM [...] Isabel Garcia MD on 04/29/2025 4:18 PM Callie Mendoza DO FLUOROSCOPY ORDERABLES Final Res ult from Last 3 Months Insurance MEDICARE [facility] MEDIC[facility] Advance Directives * Full Code (Latest Code Status on File) Date Activated Date Inactivated Comments 12/22/2024 4:39 PM 12/25/2024 7:01 PM Care Teams School Bus Attendant Relationship Specialty Start Date End Date Demond Stark MD [address] [place] [phone] PCP - General 10/03/15
--- OUTSIDE RECORDS SUMMARY | 2025-04-30 08:08 | XMS_ITS | Encounter Summary ---
Author Organization [facility] Address [address] [place] [address] Care Team Providers Care Regulatory Affairs Intern Name Role Phone Unavailable Primary Care Provider Unavailabl e Encounter Details Date Type Department Care Team (Late st Contact Info) Description 10/10/2023 Lab Requisition [facility] Laboratory Services [address] [place] [address] [place] [address] [place] [address] Social History Tobacco Use Types Packs/Day Years Used Date Smoking Tobacco: Never Assessed Sex and Gender Information Value Date Recorded Sex Assigned at Not on file Legal Sex Male 9:18 AM MECHANIC/WELDER Gender Identity Not on file Sexual Orientation Not on file documented as of this encounter Plan of Treatment Not on file documented as of this encounter Procedures Procedure Name Priority Date/Time Associated Diagnosis Comments CARBAPENEM RESISTANT ORGANISM Routine 10/09/2023 9:30 PM MECHANIC/WELDER SPUTUM CULTURE WITH GRAM STAIN Routine 10/09/2023 9:30 PM MECHANIC/WELDER documented in this encounter Results * (ABNORMAL) CARBAPENEM RESISTANT ORGANISM (10/09/2023 9:30 PM MECHANIC/WELDER) ORGANISM TESTED Klebsiella pneumoniae 10/12/2023 4:25 PM MECHANIC/WELDER [facility] LABORAT[facility] Carbapenem Resistance Gene Detected(A) Not Detected 10/12/2023 4:25 PM MECHANIC/WELDER [facility] KPC (carbapenem-re sistance gene) by PCR DETECTED(A) Not Detected 10/12/2023 4:25 PM MECHANIC/WELDER [facility] Sputum Collection / Unknown 10/09/2023 9:30 PM MECHANIC/WELDER 10/10/2023 9:54 AM MECHANIC/WELDER [facility] - 10/12/2023 4:25 PM MECHANIC/WELDER This isolate is a carbapenem-resistant Organism (TRAFFIC PERSONNEL SUPERVISOR) AND is a carbapenamase-boiler technician. If inpatient, place patient in Enhanced Contact Isolation. The CepInvincea Xpert Carba-R PCR assay detects the presence of KPC, NDM, VIM, OXA- 48, and IMP gene sequences that induce carbapenemase production in gram negative bacteria. This test was performed using an FDA approved screening methodology. Erik Chairez MD MICROBIOLOGY - GENERAL ORDERABLE S Final Result [facility]# [id number] [address] [place] [place] [id number] * (ABNORMAL) SPUTUM CULTURE WITH GRAM STAIN (10/09/2023 9:30 PM MECHANIC/WELDER) CULTURE KLEBSIELLA PNEUMONIAE(A) LUCINA MCG/ML 10/17/2023 10:47 AM MECHANIC/WELDER [facility] [employer] [facility] Comment: This isolate is a Carbapenem-Resistant Organism AND is a carbapenemase boiler technician (TRAFFIC PERSONNEL SUPERVISOR-CP). If inpatient, place patient in Enhanced Contact Isolation. Multiple drug resistant organism (MDRO). CULTURE Absent Normal Shahrzad LUCINA MCG/ML 10/17/2023 10:47 AM [facility] Rad[employer] [facility] GRAM STAIN Non diagnostic pattern LUCINA MCG/ML 10/17/2023 10:47 AM [facility] GRAM STAIN No WBC observed 10/17/2023 10:47 AM [facility] [employer] [facility] Sputum Collection / Unknown 10/09/2023 9:30 PM MECHANIC/WELDER 10/10/2023 9:54 AM MECHANIC/WELDER [facility] Rad[employer] [facility] - 10/17/2023 10:47 AM MECHANIC/WELDER Results called to Kelly Suarez RN, Rosalie [...] SULFAMETHOXAZOLE K HENRY-HERMOSILLO Resistant Klebsiella pneumoniae TIGECYCLINE ARMSTRONG-HEMROSILLO Intermediate Comment:Results are based on FDA guidelines [...] City/State/[facility] Co de Phone Number [facility]# [id number] [address] [place] [address] documented in this encounter Visit Diagnoses Not on filedocumented in this encounter Additional Health Concerns Infection Onset Date Last Indicated Resolved Time CRE-CP Comment:10/09/23 Klebsiella pneumoniae, Sputum 10/09/2023 10/09/2023 05/28/2024 2:37 PM C DT Multi Drug Resistant Organis m (MDRO) Comment:10/09/23 Klebsiella pneumoniae, CRE-CP organism, Sputum 10/09/2023 10/09/2023 TRAFFIC PERSONNEL SUPERVISOR-CP Comment:10/09/23 Klebsiella pneumoniae, Sputum 10/09/2023 05/28/2024 documented as of this encounter
--- OUTSIDE RECORDS SUMMARY | 2025-04-30 08:08 | XMS_ITS | Encounter Summary ---
Author Organization [facility] Health Address [facility] [address] Care Team Providers Care Guest Attendant Name Role Phone Demond Stark MD Primary Care Provider [phone] Encounter Details Date Type Department Care Team (Late st Contact Info) Description 04/29/2025 1:00 PM CDT Office Visit [facility] - Neurology [address] [facility] [place] [phone] Callie Mendoza DO [address] [facility] [address] FLO[address] [place] [address] Venus Mckinley APRN-MEDICAL RECEPTIONIST BILLER [address] [facility] 1L [place] [address] Chronic subdural hematoma (HCC) (Primary Dx) Social History Tobacco Use Types Packs/Day Years [...] and heating? Not hard at all 12/25/2024 [facility] [place] of Occupat ional Health - Occupational Stress [...] any time in the past 12 m [facility], were you homeless or living in a nursing home (including now)? 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 Answer Date of Assessment Author Yes 12/25/2024 3:25 PM CDT Rosario Winkler RN * Is person blind or have serious difficulty seeing? Answer Date of Assessment Author No 12/25/2024 3:25 PM CDT Rosario Winkler RN * Does person have serious difficulty walking/climbing stairs? Answer Date of Assessment Author No 12/25/2024 3:25 PM CDT Rosario Winkler RN * Does person have difficulty dressing/bathing? Answer Date of Assessment Author No 12/25/2024 3:25 PM CDT Rosario Winkler RN * Does person have difficulty doing errands alone? Answer Date of Assessment Author Yes 12/25/2024 3:25 PM CDT Rosario Winkler RN documented as of this encounter Mental Status * Does person have difficulty concentrating/remembering/making decisions? Answer Entry Date Author No 12/25/2024 3:25 PM CDT Rosario Winkler RN documented in this encounter Patient Instructions * Patient Instructions* Venus Mckinley APRN-CNP - 04/29/2025 1:41 PM CDT Balance problem Please monitor the tremors/ Balance if bothersome to let us know Fu as needed documented in this encounter Progress Notes * Venus Mckinley APRN-CNP - 04/29/2025 1:18 PM CDT Movement Disorder New Patient History & Physical Exam Omar Ryan Age: [age] year old Date of : 1940 PCP: Demond Stark MD Referring : [facility] [facility] [address]RD FLOOR DOOR 1 / [facility] [id number]* Reason for consult: Falls/ Off balance Chief Complaint: Tremors/ Falls Information was obtained from patient chart review History of Present Illness Omar Ryan is a 85 year old year old R handed male. H/o Chronic Subdural hematoma (Feel out ladder) 2018 H/o Dysphagia (Have PEG tube) and Colostomy Able to eat wnl now- Centre diet The first symptom was Tremors before not any more now + Tremors, no Slowness, no Stiffness, balance is getting better, near falls (no falls lately) The patient describes no involuntary movement (IM) Exacerbating factors are Emotion/stress. ADLs - wnl Rigidity-none Bradykinesia-none Gait - slow Falls-none lately Smell-wnl Speech-wnl Swallowing-wnl Drooling-some Bladder/Bowel-+ c/o urinary in frequency (was in Hospital in March -food poisoning from eating Shrimp; seen ER- Gastritis), no constipation Exercise-limited Dystonia negative or positive- Freezing- none Turning in bed- Memory-no difficulty Mood- pleasant/anxious Thought disorder- no vivid dreams, hallucination, delusion motivation to do activities of daily living- Is Motivated Sleep: wnl Work: [employer] - [employer] Writing: says its getting better Had a Fall received - [employer] ([place] better) Unable to tolerate Sinemet ALLERGIES: Allergies[1] MEDICATIONS: Medications[2] Review of Systems General, Eyes, ENT, Pulmonary, Cardiac, GI, , Neurologic, Psychiatric, Skeletal, Endocrine, Skin:All systems reviewed- negative for symptoms except per HPI Past Medical and Surgical History Past Medical History[3] Past Surgical History[4] Problem List[5] Social History Social History[6] Examination Vitals Vitals: 04/29/25 1309 BP: 100/66 Pulse: 86 SpO2: 97% Weight: 94.3 kg (208 lb) Height: 1.829 m (6') Physical Exam Constitutional General Appearance: in no apparent distress, well developed and well nourished, non-toxic, in no respiratory distress and acyanotic, alert, oriented times 3, afebrile, normal vitals and cooperative Skin unremarkable Mental Status A & O x 3 Recent and Remote Memory: fair Attention Span and Concentration: wnl Speech/Language: fluent/dysarthria/Hypophonia Cranial Nerve Assessment Pupils 3 mm ;PERRL, EOMI, VF intact, facial sensation intact, facial expression symmetric, hearing intact to finger rub bilaterally, symmetric palate elevation, shoulder shrug intact and symmetric, tongue protrudes midlinewithout fascicuations or atrophy Assessment of Motor Function Muscle Bulk: No muscle wasting or fasciculations noted, symmetric, no generalized wasting or cachexia present Muscle Strength: Strength Deltoid Triceps Biceps Stereo Map Plotter Operator Iliopsoas Hamstring Quadriceps TA EHL R 01/25 01/25 5/ 5/ 5/ 5/ 5 5/ 5/ L /01/25 5/ 5/01/25 Muscle Tone: Description of the Involuntary Movement: Tone Rest tremors- none Postural tremors-none Kinetic tremors-none Bradykinesia -Finger taps, Repetitive movement of hands, legs-none Rigidity-none Dyskinesia: -ve Dystonia: -ve Finger/Nose: intact Gait: Antalgic gait Data Review/Other Information Lab results smartLinks are not currently available CBC Recent Labs Component Name 12/25/24 005 WBC 7.6 HGB 13.5 HCT 40.0 PLTCOUNT 163 BMP Recent Labs Component Name 12/25/24 0059 12/24/24 0051 12/23/24 0128 POTASSIUM 4.0 3.9 4.8* CO2 27 25 22 BUN 21 24 26 CREATININE 1.01 1.10 1.14 EGFR 73* 66* 63* GLUCOSE 109* 91 114* CALCIUM 9.8 9.4 8.9 Creatinine No results found for: LABPCREA Vitals Vitals: 04/29/25 1309 BP: 100/66 Pulse: 86 Weight: 94.3 kg (208 lb) Height: 1.829 m (6') IMPRESSION: 1. No acute intracranial process. Specifically, [...] MRI may be considered to further evaluate. Notes from outside provider All labs reviewed ASSESSMENT: Balance problem more likely Neuropathy vs h/o Cerebral hematoma 2. No clinical features of Parkinson's disease PLAN: Plan of Care, Patient Instructions and Counseling To monitor tremors or falls to to revert to us with changes To follow fall precautions at all times to prevent falls Patient education regarding medication adherence and lifestyle outcomes was provided along with realistic expectations of the patient's condition. All pertinent questions were answered to patient's satisfaction during this clinical visit. - Call if any questions arise. Patient is to closely follow up with the primary physician for medical needs. Signed Electronically, Venus Mckinley, Ph.D., MSN, LISA, [facility]- Nurse Practitioner, Movement Disorders Neurology clinic [facility] Neurology 04/29/2025 [1] Allergies Allergen Reactions Benadryl [Diphenhydramine] Other Insomnia, hallucinations Benazepril Unknown Seroquel [Quetiapine] Other Hallucinations, insomnia Statins [Hmg-Coa-R Inhibitors] Other Pt reports leg weakness/heaviness when taking zocor. Halobetasol Rash [2] Current Outpatient Medications Medication Sig amoxicillin (Amoxil) 250 MG capsule Take 1 (one) capsule by mouth 3 times daily Dental work aspirin EC (Ecotrin) 81 MG tablet Take 2 (two) tablets by mouth once daily docusate sodium (Docuprene) 100 MG tablet Take 0.5 (one-half) tablet by mouth 2 times daily famotidine (Pepcid) 20 MG tablet Take 1 (one) tablet by mouth once daily folic acid 400 MCG tablet Take 1 (one) tablet by mouth once daily levothyroxine (Synthroid) 112 MCG tablet 1 (one) tablet by Enteral Tube route once daily for 60 days loratadine (Claritin) 10 MG tablet Take 1 (one) tablet by mouth once daily polyethylene glycol 3350 (Miralax) 17 GM/SCOOP powder Take 17 (seventeen) g by mouth once daily pyridoxine (Vitamin B-6) 50 MG tablet Take 1 (one) tablet by mouth once daily rivaroxaban (Xarelto) 20 MG tablet Take by mouth daily with food No current facility-administered medications for this visit. [3] Past Medical History: Diagnosis Date Coronary artery disease status post CABG Essential (primary) hypertension Hypothyroidism Prostate cancer (HCC) status post prostatectomy ST elevation (STEMI) myocardial infarction (HCC) occured in 2009 Unilateral inguinal hernia without obstruction or gangrene Urinary incontinence Vestibular disequilibrium [4] Past Surgical History: Procedure Laterality Date COLECTOMY END COLOSTOMY (TOBY PROC) Coronary Artery Bypass Graft 2009 ENDOSCOPY, UPPER N/A 12/22/2024 N/A; EGD w/Z-poem Knee Arthroscopy Left Prostatectomy [5] Patient Active Problem List: Nontraumatic chronic subdural hemorrhage (HCC) Parkinsonism (HCC) Falls Atrial fibrillation (HCC) Muscular deconditioning Zenker diverticula Bradycardia Chronic anticoagulation Chronic respiratory failure, unsp w hypoxia or hypercapnia (HCC) Chronic subdural hematoma (HCC) Colostomy status (HCC) Constipation, unspecified Coronary arteriosclerosis in [place] artery COVID-19 Dizziness Dysfunction of right eustachian tube Elevated liver function tests Essential hypertension Fatty liver Gastro-esophageal reflux disease without esophagitis History of coronary artery bypass surgery History of falling Hypothyroidism, unspecified Hyperlipidemia, unspecified Old myocardial infarction Personal history of nicotine dependence Personal history of other infectious and parasitic diseases Personal history of other malignant neoplasm of skin Pre-operative cardiovascular examination Prediabetes Presence of aortocoronary bypass graft Statin intolerance Tracheostomy status (HCC) [6] Social History Tobacco Use Smoking status: Former Current packs/day: 0.00 Types: Cigarettes Quit date: 09/23/1969 Years since quittin.6 Smokeless tobacco: Never Vaping Use Vaping status: Never Used Substance Use Topics Alcohol use: Yes Comment: rarely Drug use: No documented in this encounter Plan of Treatment Upcoming Encounters Date Type Department Care Team (Late st Contact Info) Description 02/04/2026 9:00 AM CDT Office Visit [facility] - GI [address] [facility] [place] [address] Callie Mendoza DO [address] [facility] [address] FLO[address] 1 [place] [address] documented as of this encounter Goals Goal Patient Goal Type Associated Problems Recent Progress Patient-Stated? Author Nutrition General On track( 025 8:41 AM CDT) No Yohana Foster, MANUEL Note: Expected end date: Working on plan Nutritional status is maintained or improving. Interventions: Take nutritional supplements as ordered Collaborate with the clinical patrol inspector Oral care Use soft toothbrushes Keep hydrated documented as of this encounter Visit Diagnoses Diagnosis Chronic subdural hematoma (HCC)- Primary Subdural hemorrhage documented in this encounter Care Teams Guest Attendant Relationship Specialty Start Date End Date Demond Stark MD [address] [place] [phone] PCP - General 10/03/15 documented as of this encounter
--- OUTSIDE RECORDS SUMMARY | 2025-04-30 08:08 | XMS_ITS | Clinical Summary ---
Author Organization [facility] Facility Address [address] [place] [address] Care Team Providers Care Pocketed Spring Machine Operator Name Role Phone Demond Stark MD Primary Care Provider [phone] Encounters Date Type Department Care Team Description 04/07/2025 Documentation Only [facility] Alan. [address] [facility] [address] [place] [phone] Raúl Ross MD 03/31/2025 Orders Only [facility] Alan. [address] [facility] [place] [phone] Rula Caballero MA Hypertension (Primary Dx); Long-term drug therapy 03/10/2025 Documentation Only [facility] Alan. [address] [facility] [place] [phone] Raúl Ross MD 03/02/2025 Orders Only [facility] Alan. [address] [facility] [address] [place] [phone] Rula Caball[address] MA Renal insufficiency (Primary Dx); Hypertension; Other proteinuria 03/02/2025 Orders Only [facility] AlanKasie [address] [facility] [place] [phone] Rula Caballero MA Renal insufficiency (Primary Dx); [...] Vaccine (#1) 2025 07/24/2010, 2009 Care Teams Pocketed Spring Machine Operator Relationship Specialty Start Date End Date Demond Stark MD [address] [address] PCP - General Family Medicine 06/04/24
--- OUTSIDE RECORDS SUMMARY | 2025-04-30 08:08 | XMS_ITS | Encounter Summary ---
Author Organization [facility] Healthcare Address [address] [place] [address] Care Team Providers Care Monorail Helper Name Role Phone Demond Stark MD Primary Care Provider [phone] Encounter Details Date Type Department Care Team (Late st Contact Info) Description 11/06/2024 Orders Only [facility] Health Information Management [address] [place] [address] Scanning, Provider Social History Tobacco Use Types [...] on file Legal Sex Male 8:49 AM OUTPATIENT CLERK Gender Identity Not on file Sexual [...] on filedocumented in this encounter Care Teams Monorail Helper Relationship Specialty Start Date End Date Demond Stark MD PCP - General 07/23/11 documented as of this encounter
--- OUTSIDE RECORDS SUMMARY | 2025-04-30 08:08 | XMS_ITS | Encounter Summary ---
Author Organization [facility] Health Address [facility] [address] Care Team Providers Care Retail Sales Associate Name Role Phone Demond Stark MD Primary Care Provider [phone] Encounter Details Date Type Department Care Team (Latest Contact Info) Description 04/29/2025 Travel Social History Tobacco Use Types Packs/Day Years [...] and heating? Not hard at all 12/25/2024 [facility] [place] of Occupat ional Health - Occupational Stress [...] time in the past 12 m [facility], were you homeless or living in a half-way (including now)? 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 Male 5:43 PM WINDOW DRAPER Gender Identity Not on file Sexual Orientation [...] Rosario Jonas RN documented in this encounter Plan of Treatment Upcoming Encounters Date Type Department Care Team (Late st Contact Info) Description 02/04/2026 9:00 AM CDT Office Visit [facility] - GI [address] Third Level [place] [phone] Callie Mendoza DO [address] [facility] 3RD FLOOR DO[address] 1 [place] [phone] documented as of this encounter Goals Goal Patient Goal Type Associated Problems Recent Progress Patient-Stated? Author Nutrition General On track( 025 8:41 AM CDT) Yohana Gomez, RN Note: Expected end date: Working on plan Nutritional status is maintained or improving. Interventions: Take nutritional supplements as ordered Collaborate with the clinical freight inspector Oral care Use soft toothbrushes Keep hydrated documented as of this encounter Visit Diagnoses Not on filedocumented in this encounter Care Teams Retail Sales Associate Relationship Specialty Start Date End Date Demond Stark MD [address] [place] [address] PCP - General 10/03/15 documented as of this encounter
--- OUTSIDE RECORDS SUMMARY | 2025-04-30 08:08 | XMS_ITS | Clinical Summary ---
Author Organization [facility] Address [address] [place] [address] Phone Care Team Providers Care Fagot Maker Name Role Phone Unavailable Primary Care Provider Unavailabl e Social History Tobacco Use Types Packs/Day Years Used Date Smoking Tobacco: Never Assessed Sex and Gender Information Value Date Recorded Sex Assigned at Not on file Legal Sex Male 9:18 AM PRODUCER ARBORIST MANAGER Gender Identity Not on file Sexual [...] pneumoniae, CRE-CP organism, Sputum 10/09/2023 10/09/2023 MEDICAL SOCIOLOGIST-CP Comment:10/09/23 Klebsiella pneumoniae, Sputum 10/09/2023 05/28/[address] [place] [address]
--- OUTSIDE RECORDS SUMMARY | 2025-04-30 08:08 | XMS_ITS | Encounter Summary ---
Author Organization [facility] Medical Group Address [address] [facility] [address] [place] [address] Care Team Providers Care Machine Shop Specialist Name Role Phone Demond Stark MD Primary Care Provider [phone] Encounter Details Date Type Department Care Team (Late st Contact Info) Description 10/16/2016 Orders Only [facility] ProviderTaylor MD [address] [place], [place] [phone] Social History Tobacco Use Types Packs/Day Years Used Date Smoking Tobacco: Former Cigarettes Q uit: 09/23/1969 Alcohol Use Standard Drinks/Week Comments Yes 0 (1 standard drink = 0.6 oz pur e alcohol) Sex and Gender Information Value Date Recorded Sex Assigned at Not on file Legal Sex Male 8:49 AM OVENS 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
--- OUTSIDE RECORDS SUMMARY | 2025-04-30 08:09 | XMS_ITS | Clinical Summary ---
Author Organization [facility] Medical Office Building [address] Address [address] [place] [address] Care Team Providers Care Optician Apprentice Dispensing Name Role Phone Demond Stark MD Primary Care Provider [phone] Allergies Active Allergy Reactions Criticality Noted Date Comments Diphenhydramine Hallucinations Medium 11/27/2023 Was not able to sleep and made him more anxious Lisinopril Cough Low Reaction: Cough, Pravastatin Muscle pain Medium Reaction: Muscular Pain, Quetiapine Other (See comments) Low 06/05/2024 Hallucinations, insomnia Simvastatin Muscle pain Medium Reaction: Muscular Pain, Aoamgiw-Vkt-Iid Reductase Inhibitors Muscle pain,Other (See comments) Medium 10/03/2015 Pt reports leg weakness/heavine ss when taking zocor. Medications levothyroxine (SYNTHROID) 112 mcg tablet Take 1 tablet (112 mcg total) by mouth bradder before breakfast Active aspirin 81 mg tablet [...] (COZAAR) 50 mg tabletIndications:Co ronary arteriosclerosis in [place] artery,Cardiomyopath y, unspecified type (HCC) Take 1 tablet (50 mg total) by mouth daily 90 tablet 3 03/16/20 25 026 Active Active Problems Problem Noted Date Diagnosed Date Cardiomyopathy 03/16/2025 Nonrheumatic aortic (valve) stenosis 03/16/2025 Dysfunction of right eustachian tube 08/31/2024 Assessment & Plan (10/05/2024 10:54 AM DITCH INSPECTOR): Avoid ear cleaning techniques Avoid water to ears Follow up in 9 months for right ear tube check, earlier with ear drainage Assessment & Plan (08/31/2024 11:40 AM DITCH INSPECTOR): Right myringotomy with T-tube placement Risks [...] 07/09/2024 Assessment & Plan (08/31/2024 11:39 AM DITCH INSPECTOR): Right myringotomy with T-tube placement Risks [...] 08/07/2017 Assessment & Plan (08/07/2017 6:01 PM DITCH INSPECTOR): Has had elevated LFTs and a fatty liver. Bradycardia 08/07/2017 Assessment & Plan (08/07/2017 5:58 PM DITCH INSPECTOR): Asymptomatic bradycardia, on low-dose metoprolol which may eventually need to be reduced or discontinued. Traumatic subdural hematoma of neuraxis 10/15/19 17 Overview (12/28/2016): Traumatic subdural hematoma without loss of consciousness, sequela Statin intolerance 10/15/2016 Overview (12/28/2016): Statin intolerance Essential hypertension 07/20/2013 Overview (12/28/2016): Hypertension Assessment & Plan (08/07/2017 5:57 PM DITCH INSPECTOR): Hypertension is not under good control; [...] HYPERLIPIDEMIA Assessment & Plan (08/07/2017 6:03 PM DITCH INSPECTOR): Has refued further attempts at statin therapy. History of coronary artery bypass surgery 2009 Overview (12/26/2016): AORTOCORONARY BYPASS Coronary arteriosclerosis in [place] artery 12/20 Overview (08/07/2017): CRNRY ATHRSCL NATVE VSSL 2009: Non STEMI and CABG x3 (HOBSON to the LAD, sequential RA to OM and D1) Assessment & Plan (08/07/2017 6:00 PM DITCH INSPECTOR): 2009: Non STEMI and CABG x3 [...] 03/04/2018 Assessment & Plan (08/07/2017 5:58 PM DITCH INSPECTOR): Patient is going to have knee surgery soon and needs preoperative clearance. Coronary artery disease appears stable. Low risk for cardiac event with proposed surgery. 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/2009 03/25/2023 Overview (12/28/2016): SUBENDO INFARCT, SUBSEQ Encounters Date Type Department Care Team Description 03/16/2025 2:30 PM CDT Office Visit [facility] Medical Group Cardiology [address] [place] [phone] Mando Luna MD Persistent atrial fibrillation (HCC) (Primary Dx); Coronary arteriosclerosis in [place] artery; Chronic anticoagulation; Nonrheumatic aortic (valve) stenosis; Cardiomyopathy, unspecified type (HCC) 03/16/2025 Orders Only [facility] Medical [facility] Cardiology [address] [place] [phone] ProviderTaylor MD 03/01/2025 Telephone [facility] Medical [facility] Cardiology [address] [place] [phone] Mando Luna MD from Last 3 Months [...] on file Legal Sex Male 8:49 AM DITCH INSPECTOR Gender Identity Not on file Sexual Orientation Not on file Obstetrics History Last Filed Vital Signs Vital Sign Reading Time Taken Comments Blood Pressure 138/70 03/16/2025 2:40 PM CDT Pulse 88 03/16/2025 2:40 PM CDT Temperature 36.3 C (97.4 F) 09/22/2024 1:04 PM DITCH INSPECTOR Respiratory Rate 18 09/22/2024 1:04 PM DITCH INSPECTOR Oxygen Saturation 97% 03/16/2025 2:40 PM CDT [...] 09/01/2025 09/01/2024 Medical Devices Implanted Type Area Emotional Disabilities Teacher Device Identifier Shelf Expiration Date Model / Serial / Lot [employer] 1.32mm 4.8mm Modify Ear T Tube Ventilation Ultrasil Sterile Blue [id number] - [id number] Implanted:Qty: 1 on 09/22/2024 by Laura Oakes DO at [facility] Right: Ear [employer] 07/13/2034 [id number] / / [id number] Insurance MEDICARE [facility] Address: [place] [id number] [place] [address] MEDICARE [facility] MEDICARE SUPPLEMENT Care Teams Optician Apprentice Dispensing Relationship Specialty Start Date End Date Demond Stark MD PCP - General 07/23/11
--- OUTSIDE RECORDS SUMMARY | 2025-04-30 08:09 | XMS_ITS | Encounter Summary ---
Author Organization [facility] Address [address] [place] [address] Care Team Providers Care Institutional Research Coordinator Name Role Phone Unavailable Primary Care Provider Unavailabl e Encounter Details Date Type Department Care Team (Late st Contact Info) Description 10/23/2023 Lab Requisition [facility] Laboratory Services [address] [place] [address] [place] [address] [place] [address] Social History Tobacco Use Types Packs/Day Years Used Date Smoking Tobacco: Never Assessed Sex and Gender Information Value Date Recorded Sex Assigned at Not on file Legal Sex Male 9:18 AM PASSENGER CAR CONDUCTOR Gender Identity Not on file Sexual Orientation Not on file documented as of this encounter Plan of Treatment Not on file documented as of this encounter Procedures Procedure Name Priority Date/Time Associated Diagnosis Comments CBC WITH DIFFERENTIAL Routine 10/23/2023 2:45 AM PASSENGER CAR CONDUCTOR BASIC METABOLIC PANEL Routine 10/23/2023 2:45 AM PASSENGER CAR CONDUCTOR documented in this encounter Results * (ABNORMAL) CBC WITH DIFFERENTIAL (10/23/2023 2:45 AM PASSENGER CAR CONDUCTOR) WBC 12.7(H) 4.5 - 10.5 K/uL 10/23/2023 11:15 AM PASSENGER CAR CONDUCTOR [facility] RBC 4.12(L) 4.50 - 5.40 M/uL 10/23/2023 11:15 AM PASSENGER CAR CONDUCTOR [facility] HEMOGLOBIN 12.2(L) 13.6 - 16.5 g/dL 10/23/2023 11:15 AM PASSENGER CAR CONDUCTOR [facility] HEMATOCRIT 38.7(L) 40.0 - 48.0 % 10/23/2023 11:15 AM PASSENGER CAR CONDUCTOR [facility] MCV 94.0 82.0 - 99.0 fL 10/23/2023 11:15 AM PASSENGER CAR CONDUCTOR [facility] MCH 29.7 27.8 - 34.5 pg 10/23/2023 11:15 AM PASSENGER CAR CONDUCTOR [facility] MCHC 31.6(L) 32.5 - 35.5 g/dL 10/23/2023 11:15 AM PASSENGER CAR CONDUCTOR [facility] RDW 17.3(H) 11.5 - 14.5 % 10/23/2023 11:15 AM PASSENGER CAR CONDUCTOR [facility] PLATELETS 264 160 - 420 K/uL 10/23/2023 11:15 AM PASSENGER CAR CONDUCTOR [facility] MPV 9.6 8.7 - 12.7 fL 10/23/2023 11:15 AM PASSENGER CAR CONDUCTOR [facility] NEUTROPHILS 67 % 10/23/2023 11:15 AM PASSENGER CAR CONDUCTOR [facility] LYMPHOCYTES 20 % 10/23/2023 11:15 AM PASSENGER CAR CONDUCTOR [facility] MONOCYTES 5 % 10/23/2023 11:15 AM PASSENGER CAR CONDUCTOR [facility] EOSINOPHILS 8 % 10/23/2023 11:15 AM PASSENGER CAR CONDUCTOR [facility] BASOPHILS 1 % 10/23/2023 11:15 AM PASSENGER CAR CONDUCTOR [facility] NEUTROPHIL ABSOLUTE 8.50(H) 1.90 - 7.00 K/uL 10/23/2023 11:15 AM PASSENGER CAR CONDUCTOR [facility] LYMPHOCYTE ABSOLUTE 2.50 0.70 - 4.50 K/uL 10/23/2023 11:15 AM PASSENGER CAR CONDUCTOR [facility] MONOCYTE ABSOLUTE 0.60 0.10 - 1.30 K/uL 10/23/2023 11:15 AM PASSENGER CAR CONDUCTOR [facility] EOSINOPHIL ABSOLUTE 1.00(H) 0.00 - 0.70 K/uL 10/23/2023 11:15 AM PASSENGER CAR CONDUCTOR [facility] BASOPHILS ABSOLUTE 0.10 0.00 - 0.20 K/uL 10/23/2023 11:15 AM [facility] Blood Collection / Unknown 10/23/2023 2:45 AM PASSENGER CAR CONDUCTOR 10/23/2023 10:44 AM PASSENGER CAR CONDUCTOR Erik Chairez MD HEMATOLOGY ORDERABLES Final Resu lt [facility] CLIA# [id number] [place] [address] * (ABNORMAL) BASIC METABOLIC PANEL (10/23/2023 2:45 AM PASSENGER CAR CONDUCTOR) SODIUM 139 136 - 145 mmol/L 10/23/2023 11:42 AM [facility] POTASSIUM 4.5 3.4 - 5.1 mmol/L 10/23/2023 11:42 AM [facility] CHLORIDE 100 98 - 107 mmol/L 10/23/2023 11:42 AM [facility] CO2 24 22 - 29 mmol/L 10/23/2023 11:42 AM [facility] CALCIUM 9.6 8.6 - 10.4 mg/dL 10/23/2023 11:42 AM [facility] BUN 36(H) 6 - 20 mg/dL 10/23/2023 11:42 AM [facility] CREATININE 0.95 0.67 - 1.17 mg/dL 10/23/2023 11:42 AM [facility] Comment:The GFR result is no t clinically significant on patients <18 or >70 years of age. GLUCOSE 86 74 - 99 mg/dL 10/23/2023 11:42 AM [facility] GFR >60 mL/min/1.7 3 sq meter 10/23/2023 11:42 AM [facility] Comment:eGFR calculated with 2020 CKD-EPI equation. Vegetarian diet, extremely high or low muscle mass, and may affect results. Cystatin C with Glomerular Filtration Rate is a suitable alternative for these patients. 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
--- OUTSIDE RECORDS SUMMARY | 2025-04-30 08:09 | XMS_ITS | Encounter Summary ---
Author Organization [facility] Address [address] [place] [address] Care Team Providers Care Shot Core Drill Operator Name Role Phone Unavailable Primary Care Provider Unavailabl e Encounter Details Date Type Department Care Team (Late st Contact Info) Description 10/13/2023 Lab Requisition [facility] Laboratory Services [address] [place] [address] [place] [address] [place] [address] Social History Tobacco Use Types Packs/Day Years Used Date Smoking Tobacco: Never Assessed Sex and Gender Information Value Date Recorded Sex Assigned at Not on file Legal Sex Male 9:18 AM OYSTER FARMER Gender Identity Not on file Sexual Orientation Not on file documented as of this encounter Plan of Treatment Not on file documented as of this encounter Procedures Procedure Name Priority Date/Time Associated Diagnosis Comments MAGNESIUM LEVEL Routine 10/13/2023 4:00 AM OYSTER FARMER RENAL FUNCTION PANEL Routine 10/13/2023 4:00 AM OYSTER FARMER documented in this encounter Results * MAGNESIUM LEVEL (10/13/2023 4:00 AM OYSTER FARMER) MAGNESIUM 2.3 1.6 - 2.6 mg/dL 10/13/2023 5:59 AM OYSTER FARMER [facility] [employer] [facility] Blood Collection / Unknown 10/13/2023 4:00 AM OYSTER FARMER 10/13/2023 5:20 AM OYSTER FARMER us Erik Chairez MD CHEMISTRY ORDERABLES Final Resul t [facility]# [id number] [place] [address] * (ABNORMAL) RENAL FUNCTION PANEL (10/13/2023 4:00 AM OYSTER FARMER) SODIUM 138 136 - 145 mmol/L 10/13/2023 [...] Blood Collection / Unknown 10/13/2023 4:00 AM OYSTER FARMER 10/13/2023 5:20 AM OYSTER FARMER Erik Chairez MD CHEMISTRY ORDERABLES Final Resul t [facility]ORATORY [facility] CLIA# [id number] [address] [place] [address] documented in this encounter Visit Diagnoses Not on filedocumented in this encounter Additional Health Concerns Infection Onset Date Last Indicated Resolved Time CRE-CP Comment:10/09/23 Klebsiella pneumoniae, Sputum 10/09/2023 10/09/2023 05/28/2024 2:37 PM C DT Multi Drug Resistant Organis m (MDRO) Comment:10/09/23 Klebsiella pneumoniae, CRE-CP organism, Sputum 10/09/2023 10/09/2023 INSIDE SALES SPECIALIST-CP Comment:10/09/23 Klebsiella pneumoniae, Sputum 10/09/2023 05/28/2024 documented as of this encounter
--- OUTSIDE RECORDS SUMMARY | 2025-04-30 08:09 | XMS_ITS | Encounter Summary ---
Author Organization [facility] Address [address] [place] [address] Care Team Providers Care Teacher Industrial Arts Name Role Phone Unavailable Primary Care Provider Unavailabl e Encounter Details Date Type Department Care Team (Late st Contact Info) Description 10/29/2023 Lab Requisition [facility] Laboratory Services [address] [place] [address] [place] [address] [place] [address] Social History Tobacco Use Types Packs/Day Years Used Date Smoking Tobacco: Never Assessed Sex and Gender Information Value Date Recorded Sex Assigned at Not on file Legal Sex Male 9:18 AM OPEN SHANK COVERER Gender Identity Not on file Sexual Orientation Not on file documented as of this encounter Plan of Treatment Not on file documented as of this encounter Procedures Procedure Name Priority Date/Time Associated Diagnosis Comments CBC WITH DIFFERENTIAL Routine 10/29/2023 3:20 AM OPEN SHANK COVERER BASIC METABOLIC PANEL Routine 10/29/2023 3:20 AM OPEN SHANK COVERER documented in this encounter Results * (ABNORMAL) CBC WITH DIFFERENTIAL (10/29/2023 3:20 AM OPEN SHANK COVERER) WBC 8.0 4.5 - 10.5 K/uL 10/29/2023 8:18 AM OPEN SHANK COVERER [facility] - [facility] RBC 3.85(L) 4.50 - 5.40 M/uL 10/29/2023 8:18 AM OPEN SHANK COVERER [facility]ORY [facility] HEMOGLOBIN 11.6(L) 13.6 - 16.5 g/dL 10/29/2023 8:18 AM OPEN SHANK COVERER [facility] HEMATOCRIT 35.7(L) 40.0 - 48.0 % 10/29/2023 8:18 AM OPEN SHANK COVERER [facility] LABORATORY SERVICES [facility] MCV 92.6 82.0 - 99.0 fL 10/29/2023 8:18 AM OPEN SHANK COVERER [facility] - [facility] MCH 30.0 27.8 - 34.5 pg 10/29/2023 8:18 AM OPEN SHANK COVERER [facility] LABORATORY SERVICES [facility] MCHC 32.4(L) 32.5 - 35.5 g/dL 10/29/2023 8:18 AM OPEN SHANK COVERER [facility]ORATORY SERVICES [facility] RDW 17.3(H) 11.5 - 14.5 % 10/29/2023 8:18 AM OPEN SHANK COVERER [facility] LABORATORY SERVICES [facility] PLATELETS 255 160 - 420 K/uL 10/29/2023 8:18 AM OPEN SHANK COVERER [facility]ORATORY SERVICES [facility] MPV 9.9 8.7 - 12.7 fL 10/29/2023 8:18 AM OPEN SHANK COVERER [facility]ATORY SERVICES [facility] NEUTROPHILS 61 % 10/29/2023 8:18 AM OPEN SHANK COVERER [facility]ORAT[facility] SERVICES [facility] LYMPHOCYTES 22 % 10/29/2023 8:18 AM OPEN SHANK COVERER [facility] MONOCYTES 6 % 10/29/2023 8:18 AM OPEN SHANK COVERER [facility] EOSINOPHILS 11 % 10/29/2023 8:18 AM OPEN SHANK COVERER [facility] LABORATORY SERVICES [facility] BASOPHILS 1 % 10/29/2023 8:18 AM OPEN SHANK COVERER [facility] LABORATORY SERVICES [facility] NEUTROPHIL ABSOLUTE 4.90 1.90 - 7.00 K/uL 10/29/2023 8:18 AM OPEN SHANK COVERER [facility] LABORATORY SERVICES [facility] LYMPHOCYTE ABSOLUTE 1.70 0.70 - 4.50 K/uL 10/29/2023 8:18 AM OPEN SHANK COVERER [facility] MONOCYTE ABSOLUTE 0.50 0.10 - 1.30 K/uL 10/29/2023 8:18 AM OPEN SHANK COVERER [facility] LABORATORY SERVICES [facility] EOSINOPHIL ABSOLUTE 0.80(H) 0.00 - 0.70 K/uL 10/29/2023 8:18 AM OPEN SHANK COVERER [facility] LABORATORY SERVICES [facility] BASOPHILS ABSOLUTE 0.00 0.00 - 0.20 K/uL 10/29/2023 8:[address] [facility] Blood Collection / Unknown 10/29/2023 3:20 AM OPEN SHANK COVERER 10/29/2023 7:59 AM OPEN SHANK COVERER Erik Chairez MD HEMATOLOGY ORDERABLES Final Resu lt [facility] CLIA# [id number] [place] [address] * (ABNORMAL) BASIC METABOLIC PANEL (10/29/2023 3:20 AM OPEN SHANK COVERER) SODIUM 141 136 - 145 mmol/L 10/29/2023 [...] 8 - 16 mmol/L 10/29/2023 8:38 AM OPEN SHANK COVERER [facility] LABORATORY SERVICES [facility] Blood Collection / Unknown 10/29/2023 3:20 AM OPEN SHANK COVERER 10/29/2023 7:59 AM OPEN SHANK COVERER Erik Chairez MD CHEMISTRY ORDERABLES Final Resul t [facility] LAB[facility] CLIA# [id number] [address] [place] [address] documented in this encounter Visit Diagnoses Not on filedocumented in this encounter Additional Health Concerns Infection Onset Date Last Indicated Resolved Time CRE-CP Comment:10/09/23 Klebsiella pneumoniae, Sputum 10/09/2023 10/09/2023 05/28/2024 2:37 PM C DT Multi Drug Resistant Organis m (MDRO) Comment:10/09/23 Klebsiella pneumoniae, CRE-CP organism, Sputum 10/09/2023 10/09/2023 AGRICULTURAL EQUIPMENT OPERATOR-CP Comment:10/09/23 Klebsiella pneumoniae, Sputum 10/09/2023 05/28/2024 documented as of this encounter
--- OUTSIDE RECORDS SUMMARY | 2025-04-30 08:09 | XMS_ITS | Encounter Summary ---
Author Organization [facility] Address [address] [place] [address] Care Team Providers Care Movie Shot Cameraman Name Role Phone Unavailable Primary Care Provider Unavailabl e Encounter Details Date Type Department Care Team (Late st Contact Info) Description 11/04/2023 Lab Requisition [facility] Laboratory Services [address] [place] [address] [place] [address] [place] [address] Social History Tobacco Use Types Packs/Day Years Used Date Smoking Tobacco: Never Assessed Sex and Gender Information Value Date Recorded Sex Assigned at Not on file Legal Sex Male 9:18 AM RACING SECRETARY Gender Identity Not on file Sexual Orientation Not on file documented as of this encounter Plan of Treatment Not on file documented as of this encounter Procedures Procedure Name Priority Date/Time Associated Diagnosis Comments CBC WITH DIFFERENTIAL Routine 11/04/2023 3:45 AM RACING SECRETARY BASIC METABOLIC PANEL Routine 11/04/2023 3:45 AM RACING SECRETARY documented in this encounter Results * (ABNORMAL) CBC WITH DIFFERENTIAL (11/04/2023 3:45 AM RACING SECRETARY) WBC 12.2(H) 4.5 - 10.5 K/uL 11/04/2023 8:52 AM RACING SECRETARY [facility] LABORATORY SERVICES - [facility] RBC 4.11(L) 4.50 - 5.40 M/uL 11/04/2023 8:52 AM RACING SECRETARY [facility] LABORATORY [facility] HEMOGLOBIN 11.7(L) 13.6 - 16.5 g/dL 11/04/2023 8:52 AM RACING SECRETARY [facility] LABORATORY [facility] HEMATOCRIT 37.9(L) 40.0 - 48.0 % 11/04/2023 8:52 AM RACING SECRETARY [facility] LABORATORY SERVICES [facility] MCV 92.2 82.0 - 99.0 fL 11/04/2023 8:52 AM RACING SECRETARY [facility] LABORATORY [facility] MCH 28.5 27.8 - 34.5 pg 11/04/2023 8:52 AM RACING SECRETARY [facility]ORATORY SERVICES [facility] MCHC 30.9(L) 32.5 - 35.5 g/dL 11/04/2023 8:52 AM RACING SECRETARY [facility]ORATORY SERVICES [facility] RDW 17.0(H) 11.5 - 14.5 % 11/04/2023 8:52 AM RACING SECRETARY [facility] LABORATORY SERVICES [facility] PLATELETS 272 160 - 420 K/uL 11/04/2023 8:52 AM RACING SECRETARY [facility] LABORATORY SERVICES [facility] MPV 10.0 8.7 - 12.7 fL 11/04/2023 8:52 AM RACING SECRETARY [facility] LABORATORY SERVICES [facility] NEUTROPHILS 45 % 11/04/2023 8:52 AM RACING SECRETARY [facility] LABORATORY SERVICES [facility] LYMPHOCYTES 38 % 11/04/2023 8:52 AM RACING SECRETARY [facility] LABORATORY SERVICES [facility] MONOCYTES 7 % 11/04/2023 8:52 AM RACING SECRETARY [facility]ORATORY SERVICES [facility] EOSINOPHILS 11 % 11/04/2023 8:52 AM RACING SECRETARY [facility] LABORATORY SERVICES [facility] BASOPHILS 1 % 11/04/2023 8:52 AM RACING SECRETARY [facility] LABORATORY [facility] NEUTROPHIL ABSOLUTE 5.50 1.90 - 7.00 K/uL 11/04/2023 8:52 AM RACING SECRETARY [facility] LABORATORY SERVICES [facility] LYMPHOCYTE ABSOLUTE 4.60(H) 0.70 - 4.50 K/uL 11/04/2023 8:52 AM RACING SECRETARY [facility] LABORATORY SERVICES [facility] MONOCYTE ABSOLUTE 0.80 0.10 - 1.30 K/uL 11/04/2023 8:52 AM RACING SECRETARY [facility] LABORATORY SERVICES [facility] EOSINOPHIL ABSOLUTE 1.30(H) 0.00 - 0.70 K/uL 11/04/2023 8:52 AM RACING SECRETARY [facility] LABORATORY SERVICES [facility] BASOPHILS ABSOLUTE 0.10 0.00 - 0.20 K/uL 11/04/2023 8:52 AM [facility] [employer] [facility] Blood 11/04/2023 3:45 AM RACING SECRETARY 11/04/2023 8:24 AM RACING SECRETARY Erik Chairez MD HEMATOLOGY ORDERABLES Final Resu lt [facility] CLIA# [id number] [place] [address] * (ABNORMAL) BASIC METABOLIC PANEL (11/04/2023 3:45 AM RACING SECRETARY) SODIUM 144 136 - 145 mmol/L 11/04/2023 [...] 8 - 16 mmol/L 11/04/2023 9:49 AM RACING SECRETARY [facility] LABORAT[facility] Blood 11/04/2023 3:45 AM RACING SECRETARY 11/04/2023 8:24 AM RACING SECRETARY Erik Chairez MD CHEMISTRY ORDERABLES Final Resul t [facility] LABORATORY [facility] CLIA# [id number] [address] [place] [address] documented in this encounter Visit Diagnoses Not on filedocumented in this encounter Additional Health Concerns Infection Onset Date Last Indicated Resolved Time 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
--- OUTSIDE RECORDS SUMMARY | 2025-04-30 08:09 | XMS_ITS | Encounter Summary ---
Author Organization [facility] Address [address] [place] [address] Care Team Providers Care Flitch Hanger Name Role Phone Unavailable Primary Care Provider Unavailabl e Encounter Details Date Type Department Care Team (Late st Contact Info) Description 11/10/2023 Lab Requisition [facility] Laboratory Services [id number] [place] [address] [place] [id number] [place] [address] Social History Tobacco Use Types Packs/Day Years Used Date Smoking Tobacco: Never Assessed Sex and Gender Information Value Date Recorded Sex Assigned at Not on file Legal Sex Male 9:18 AM MATERIALS ASSOCIATE Gender Identity Not on file Sexual Orientation Not on file documented as of this encounter Plan of Treatment Not on file documented as of this encounter Procedures Procedure Name Priority Date/Time Associated Diagnosis Comments CBC WITH DIFFERENTIAL Routine 11/10/2023 6:10 AM MATERIALS ASSOCIATE BASIC METABOLIC PANEL Routine 11/10/2023 6:10 AM MATERIALS ASSOCIATE documented in this encounter Results * (ABNORMAL) CBC WITH DIFFERENTIAL (11/10/2023 6:10 AM MATERIALS ASSOCIATE) WBC 7.9 4.5 - 10.5 K/uL 11/10/2023 6:55 AM MATERIALS ASSOCIATE [facility] LABORATORY SERVICES - [facility] RBC 3.65(L) 4.50 - 5.40 M/uL 11/10/2023 6:55 AM MATERIALS ASSOCIATE [facility] LABORATORY [facility] - [facility] HEMOGLOBIN 10.8(L) 13.6 - 16.5 g/dL 11/10/2023 6:55 AM MATERIALS ASSOCIATE [facility] LABORATORY SERVICES - [facility] HEMATOCRIT 33.6(L) 40.0 - 48.0 % 11/10/2023 6:55 AM MATERIALS ASSOCIATE [facility] LABORATORY SERVICES [facility] MCV 92.0 82.0 - 99.0 fL 11/10/2023 6:55 AM MATERIALS ASSOCIATE [facility] LABORATORY SERVICES [facility] MCH 29.7 27.8 - 34.5 pg 11/10/2023 6:55 AM MATERIALS ASSOCIATE [facility] LABORATORY SERVICES [facility] MCHC 32.2(L) 32.5 - 35.5 g/dL 11/10/2023 6:55 AM MATERIALS ASSOCIATE [facility] LABORATORY SERVICES [facility] RDW 17.0(H) 11.5 - 14.5 % 11/10/2023 6:55 AM MATERIALS ASSOCIATE [facility] LABORATORY SERVICES [facility] PLATELETS 251 160 - 420 K/uL 11/10/2023 6:55 AM MATERIALS ASSOCIATE [facility] LAB[facility]ORY SERVICES [facility] MPV 9.2 8.7 - 12.7 fL 11/10/2023 6:55 AM MATERIALS ASSOCIATE [facility] LABORATORY SERVICES [facility] NEUTROPHILS 62 % 11/10/2023 6:55 AM MATERIALS ASSOCIATE [facility] LABORATORY SERVICES [facility] LYMPHOCYTES 22 % 11/10/2023 6:55 AM MATERIALS ASSOCIATE [facility] LAB[facility]ORY SERVICES [facility] MONOCYTES 5 % 11/10/2023 6:55 AM MATERIALS ASSOCIATE [facility] LABORATORY SERVICES [facility] EOSINOPHILS 10 % 11/10/2023 6:55 AM MATERIALS ASSOCIATE [facility] LAB[facility]ORY SERVICES [facility] BASOPHILS 1 % 11/10/2023 6:55 AM MATERIALS ASSOCIATE [facility] LABORATORY SERVICES [facility] NEUTROPHIL ABSOLUTE 4.90 1.90 - 7.00 K/uL 11/10/2023 6:55 AM MATERIALS ASSOCIATE [facility] LABORATORY SERVICES [facility] LYMPHOCYTE ABSOLUTE 1.70 0.70 - 4.50 K/uL 11/10/2023 6:55 AM MATERIALS ASSOCIATE [facility] LABORATORY SERVICES [facility] MONOCYTE ABSOLUTE 0.40 0.10 - 1.30 K/uL 11/10/2023 6:55 AM MATERIALS ASSOCIATE [facility] LABORATORY SERVICES [facility] EOSINOPHIL ABSOLUTE 0.80(H) 0.00 - 0.70 K/uL 11/10/2023 6:55 AM MATERIALS ASSOCIATE [facility] LAB[facility]ORY SERVICES [facility] BASOPHILS ABSOLUTE 0.10 0.00 - 0.20 K/uL 11/10/2023 6:55 AM [facility] Blood 11/10/2023 6:10 AM MATERIALS ASSOCIATE 11/10/2023 6:41 AM MATERIALS ASSOCIATE Erik Chairez MD HEMATOLOGY ORDERABLES Final Resu lt [facility] CLIA# [id number] [place] [address] * (ABNORMAL) BASIC METABOLIC PANEL (11/10/2023 6:10 AM MATERIALS ASSOCIATE) SODIUM 139 136 - 145 mmol/L 11/10/2023 7:14 AM [facility] POTASSIUM 4.2 3.4 - 5.1 mmol/L 11/10/2023 7:14 AM [facility] CHLORIDE 103 98 - 107 mmol/L 11/10/2023 7:14 AM [facility] CO2 26 22 - 29 mmol/L 11/10/2023 7:14 AM [facility] CALCIUM 9.4 8.6 - 10.4 mg/dL 11/10/2023 7:14 AM [facility] BUN 39(H) 6 - 20 mg/dL 11/10/2023 7:14 AM [facility] CREATININE 0.98 0.67 - 1.17 mg/dL 11/10/2023 7:14 AM [facility] Comment:The GFR result is no t clinically significant on patients <18 or >70 years of age. GLUCOSE 111(H) 74 - 99 mg/dL 11/10/2023 7:14 AM [facility] GFR >60 mL/min/1.7 3 sq meter 11/10/2023 7:14 AM [facility] Comment:eGFR calculated with 2020 CKD-EPI equation. Vegetarian diet, extremely high or low muscle mass, and may affect results. Cystatin C with Glomerular Filtration Rate is a suitable alternative for these patients. ANION GAP 10 8 - 16 mmol/L 11/10/2023 7:14 AM MATERIALS ASSOCIATE [facility] LABORATORY SERVICES [facility] Blood 11/10/2023 6:10 AM MATERIALS ASSOCIATE 11/10/2023 6:41 AM MATERIALS ASSOCIATE Erik Chairez MD CHEMISTRY ORDERABLES Final Resul t [facility] LABORATORY [facility] CLIA# [id number] [place] [address] documented in this encounter Visit Diagnoses Not on filedocumented in this encounter Additional Health Concerns Infection Onset Date Last Indicated Resolved Time CRE-CP Comment:10/09/23 Klebsiella pneumoniae, Sputum 10/09/2023 10/09/2023 05/28/2024 2:37 PM C DT 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
--- OUTSIDE RECORDS SUMMARY | 2025-04-30 08:09 | XMS_ITS | Encounter Summary ---
Author Organization [facility] Address [address] [place] [address] Care Team Providers Care Field Services Analyst Name Role Phone Unavailable Primary Care Provider Unavailabl e Encounter Details Date Type Department Care Team (Late st Contact Info) Description 11/05/2023 Lab Requisition [facility] Laboratory Services [address] [place] [address] [place] [address] [place] [address] Social History Tobacco Use Types Packs/Day Years Used Date Smoking Tobacco: Never Assessed Sex and Gender Information Value Date Recorded Sex Assigned at Not on file Legal Sex Male 9:18 AM CUTTER FIRST Gender Identity Not on file Sexual Orientation Not on file documented as of this encounter Plan of Treatment Not on file documented as of this encounter Procedures Procedure Name Priority Date/Time Associated Diagnosis Comments DIFFERENTIAL, MANUAL Routine 11/05/2023 3:30 AM CUTTER FIRST CBC WITH DIFFERENTIAL Routine 11/05/2023 3:30 AM CUTTER FIRST documented in this encounter Results * MANUAL DIFFERENTIAL (11/05/2023 3:30 AM CUTTER FIRST) PLATELET EST. Consistent w Count 11/05/2023 6:05 AM CUTTER FIRST [facility] RBC MORPHOLOGY Normal 11/05/2023 6:05 AM CUTTER FIRST [facility] Blood Collection / Unknown 11/05/2023 3:30 AM CUTTER FIRST 11/05/2023 5:05 AM CUTTER FIRST Erik Chairez MD HEMATOLOGY ORDERABLES COM Final Result [facility] CLIA# [id number] [place] [address] * (ABNORMAL) CBC WITH DIFFERENTIAL (11/05/2023 3:30 AM CUTTER FIRST) [facility] WBC 7.5 4.5 - 10.5 K/uL 11/05/2023 6:05 AM [facility] LABORATORY [facility] RBC 3.81(L) 4.50 - 5.40 M/uL 11/05/2023 6:05 AM [facility] HEMOGLOBIN 11.9(L) 13.6 - 16.5 g/dL 11/05/2023 6:05 AM [facility] HEMATOCRIT 35.6(L) 40.0 - 48.0 % 11/05/2023 6:05 AM [facility] [employer] [facility] MCV 93.5 82.0 - 99.0 fL 11/05/2023 6:05 AM [facility] [employer] [facility] MCH 31.2 27.8 - 34.5 pg 11/05/2023 6:05 AM [facility] [employer] [facility] MCHC 33.3 32.5 - 35.5 g/dL 11/05/2023 6:05 AM [facility] [employer] [facility] RDW 17.0(H) 11.5 - 14.5 % 11/05/2023 6:05 AM [facility] [employer] [facility] PLATELETS 243 160 - 420 K/uL 11/05/2023 6:05 AM [facility] [employer] [facility] MPV 9.4 8.7 - 12.7 fL 11/05/2023 6:05 AM [facility] LABORATORY [facility] NEUTROPHILS 63 % 11/05/2023 6:05 AM CUTTER FIRST [facility] [employer] [facility] LYMPHOCYTES 23 % 11/05/2023 6:05 AM CUTTER FIRST [facility] LABORATORY [facility] MONOCYTES 5 % 11/05/2023 6:05 AM [facility] LABORATORY [facility] EOSINOPHILS 9 % 11/05/2023 6:05 AM [facility] [facility] LABORATORY [facility] BASOPHILS 1 % 11/05/2023 6:05 AM C[facility] [facility] LABORATORY [facility] NEUTROPHIL ABSOLUTE 4.70 1.90 - 7.00 K/uL 11/05/2023 6:05 AM CUTTER FIRST [facility] LABORATORY [facility] LYMPHOCYTE ABSOLUTE 1.70 0.70 - 4.50 K/uL 11/05/2023 6:05 AM CUTTER FIRST [facility] LABORATORY [facility] MONOCYTE ABSOLUTE 0.40 0.10 - 1.30 K/uL 11/05/2023 6:05 AM CUTTER FIRST [facility] LABORATORY [facility] EOSINOPHIL ABSOLUTE 0.70 0.00 - 0.70 K/uL 11/05/2023 6:05 AM CUTTER FIRST [facility] LABORATORY SERVICES - [facility] BASOPHILS ABSOLUTE 0.00 0.00 - 0.20 K/uL 11/05/2023 6:05 AM CUTTER FIRST [facility] LABORATORY [facility] Blood Collection / Unknown 11/05/2023 3:30 AM CUTTER FIRST 11/05/2023 5:05 AM CUTTER FIRST Erik Chairez MD HEMATOLOGY ORDERABLES Final Resu lt [facility] CLIA# [id number] [place] [address] documented in this encounter Visit Diagnoses Not on filedocumented in this encounter Additional Health Concerns Infection Onset Date Last Indicated Resolved Time CRE-CP Comment:10/09/23 Klebsiella pneumoniae, Sputum 10/09/2023 10/09/2023 05/28/2024 2:37 PM C DT 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
--- OUTSIDE RECORDS SUMMARY | 2025-04-30 08:09 | XMS_ITS | Encounter Summary ---
Author Organization [facility] Address [address] [place] [address] Care Team Providers Care Molded Goods Controls Operator Name Role Phone Unavailable Primary Care Provider Unavailabl e Encounter Details Date Type Department Care Team (Late st Contact Info) Description 10/17/2023 Lab Requisition [facility] Laboratory Services [address] [place] [address] [place] [address] [place] [address] Social History Tobacco Use Types Packs/Day Years Used Date Smoking Tobacco: Never Assessed Sex and Gender Information Value Date Recorded Sex Assigned at Not on file Legal Sex Male 9:18 AM BANQUET COOK Gender Identity Not on file Sexual Orientation Not on file documented as of this encounter Plan of Treatment Not on file documented as of this encounter Procedures Procedure Name Priority Date/Time Associated Diagnosis Comments CBC WITH DIFFERENTIAL Routine 10/17/2023 2:15 AM BANQUET COOK MAGNESIUM LEVEL Routine 10/17/2023 2:15 AM BANQUET COOK RENAL FUNCTION PANEL Routine 10/17/2023 2:15 AM BANQUET COOK documented in this encounter Results * MAGNESIUM LEVEL (10/17/2023 2:15 AM BANQUET COOK) MAGNESIUM 2.3 1.6 - 2.6 mg/dL 10/17/2023 9:56 AM BANQUET COOK [facility] LABORATORY SERVICES [facility] Blood Collection / Unknown 10/17/2023 2:15 AM BANQUET COOK 10/17/2023 9:00 AM BANQUET COOK Erik Chairez MD CHEMISTRY ORDERABLES Final Resul t [facility] LABORATORY [facility] CLIA# [id number] [address] [place] [address] * (ABNORMAL) CBC WITH DIFFERENTIAL (10/17/2023 2:15 AM BANQUET COOK) WBC 6.7 4.5 - 10.5 K/uL 10/17/2023 9:34 AM BANQUET COOK [facility] LABORATORY SERVICES [facility] RBC 3.73(L) 4.50 - 5.40 M/uL 10/17/2023 9:34 AM BANQUET COOK [facility] LABORATORY SERVICES [facility] HEMOGLOBIN 11.1(L) 13.6 - 16.5 g/dL 10/17/2023 9:34 AM BANQUET COOK [facility] LABORATORY SERVICES [facility] HEMATOCRIT 35.0(L) 40.0 - 48.0 % 10/17/2023 9:34 AM BANQUET COOK [facility] LABORATORY [facility] MCV 93.8 82.0 - 99.0 fL 10/17/2023 9:34 AM BANQUET COOK [facility] LABORATORY SERVICES [facility] MCH 29.8 27.8 - 34.5 pg 10/17/2023 9:34 AM BANQUET COOK [facility] LABORATORY SERVICES [facility] MCHC 31.8(L) 32.5 - 35.5 g/dL 10/17/2023 9:34 AM BANQUET COOK [facility] LABORATORY SERVICES [facility] RDW 17.4(H) 11.5 - 14.5 % 10/17/2023 9:34 AM BANQUET COOK [facility] LABORATORY SERVICES [facility] PLATELETS 214 160 - 420 K/uL 10/17/2023 9:34 AM BANQUET COOK [facility] LABORATORY SERVICES [facility] MPV 9.5 8.7 - 12.7 fL 10/17/2023 9:34 AM BANQUET COOK [facility] LABORATORY SERVICES [facility] NEUTROPHILS 50 % 10/17/2023 9:34 AM BANQUET COOK [facility] LABORATORY SERVICES [facility] LYMPHOCYTES 28 % 10/17/2023 9:34 AM BANQUET COOK [facility] LABORATORY SERVICES [facility] MONOCYTES 8 % 10/17/2023 9:34 AM BANQUET COOK [facility] LABORATORY SERVICES [facility] EOSINOPHILS 13 % 10/17/2023 9:34 AM BANQUET COOK [facility] LABORATORY [facility] BASOPHILS 0 % 10/17/2023 9:34 AM BANQUET COOK [facility] LABORATORY [facility] NEUTROPHIL ABSOLUTE 3.40 1.90 - 7.00 K/uL 10/17/2023 9:34 AM BANQUET COOK [facility] LABORATORY [facility] LYMPHOCYTE ABSOLUTE 1.90 0.70 - 4.50 K/uL 10/17/2023 9:34 AM BANQUET COOK [facility] LABORATORY [facility] MONOCYTE ABSOLUTE 0.50 0.10 - 1.30 K/uL 10/17/2023 9:34 AM BANQUET COOK [facility] LABORATORY SERVICES [facility] EOSINOPHIL ABSOLUTE 0.90(H) 0.00 - 0.70 K/uL 10/17/2023 9:34 AM BANQUET COOK [facility] LABORATORY [facility] BASOPHILS ABSOLUTE 0.00 0.00 - 0.20 K/uL 10/17/2023 9:34 AM BANQUET COOK [facility] LABORATORY [facility] Blood Collection / Unknown 10/17/2023 2:15 AM BANQUET COOK 10/17/2023 9:00 AM BANQUET COOK us Erik Chairez MD HEMATOLOGY ORDERABLES Final Resu lt [facility] CLIA# [id number] [place] [address] * (ABNORMAL) RENAL FUNCTION PANEL (10/17/2023 2:15 AM BANQUET COOK) SODIUM 137 136 - 145 mmol/L 10/17/2023 9:56 AM [facility] [employer] [facility] POTASSIUM 4.0 3.4 - 5.1 mmol/L 10/17/2023 9:56 AM [facility] LABORATORY [facility] CHLORIDE 99 98 - 107 mmol/L 10/17/2023 9:56 AM [facility] [employer] [facility] CO2 23 22 - 29 mmol/L 10/17/2023 9:56 AM [facility] [employer] [facility] CALCIUM 9.2 8.6 - 10.4 mg/dL 10/17/2023 9:56 AM [facility] [employer] [facility] BUN 42(H) 6 - 20 mg/dL 10/17/2023 9:56 AM [facility] CREATININE 1.00 0.67 - 1.17 mg/dL 10/17/2023 9:56 AM [facility] Comment:The GFR result is no t clinically significant on patients <18 or >70 years of age. GLUCOSE 72(L) 74 - 99 mg/dL 10/17/2023 9:56 AM [facility] ALBUMIN 3.2(L) 3.5 - 5.2 g/dL 10/17/2023 9:56 AM [facility] PHOSPHORUS 2.9 2.5 - 4.5 mg/dL 10/17/2023 9:56 AM [facility] GFR >60 mL/min/1.7 3 sq meter 10/17/2023 9:56 AM [facility] Comment:eGFR calculated with 2020 CKD-EPI equation. Vegetarian diet, extremely high or low muscle mass, and may affect results. Cystatin C with Glomerular Filtration Rate is a suitable alternative for these patients. 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
--- OUTSIDE RECORDS SUMMARY | 2025-04-30 08:09 | XMS_ITS | Encounter Summary ---
Author Organization [facility] Address [address] [place] [address] Care Team Providers Care Machine Finisher Name Role Phone Unavailable Primary Care Provider Unavailabl e Encounter Details Date Type Department Care Team (Late st Contact Info) Description 10/12/2023 Lab Requisition [facility] Laboratory Services [address] [place] [address] [place] [address] [place] [address] Social History Tobacco Use Types Packs/Day Years Used Date Smoking Tobacco: Never Assessed Sex and Gender Information Value Date Recorded Sex Assigned at Not on file Legal Sex Male 9:18 AM ASSESSMENT DIRECTOR Gender Identity Not on file Sexual Orientation Not on file documented as of this encounter Plan of Treatment Not on file documented as of this encounter Procedures Procedure Name Priority Date/Time Associated Diagnosis Comments MAGNESIUM LEVEL Routine 10/12/2023 4:00 AM ASSESSMENT DIRECTOR RENAL FUNCTION PANEL Routine 10/12/2023 4:00 AM ASSESSMENT DIRECTOR documented in this encounter Results * MAGNESIUM LEVEL (10/12/2023 4:00 AM ASSESSMENT DIRECTOR) MAGNESIUM 2.3 1.6 - 2.6 mg/dL 10/12/2023 6:[address] [facility] [employer] [facility] Blood Collection / Unknown 10/12/2023 4:00 AM ASSESSMENT DIRECTOR 10/12/2023 5:07 AM ASSESSMENT DIRECTOR us Erik Chairez MD CHEMISTRY ORDERABLES [id number] [id number] [place] [address] * (ABNORMAL) RENAL FUNCTION PANEL (10/12/2023 4:00 AM ASSESSMENT DIRECTOR) SODIUM 139 136 - 145 mmol/L 10/12/2023 6:02 AM [facility] POTASSIUM 4.2 3.4 - 5.1 mmol/L 10/12/2023 6:02 AM [facility] CHLORIDE 102 98 - 107 mmol/L 10/12/2023 6:02 AM [facility] CO2 24 22 - 29 mmol/L 10/12/2023 6:02 AM [facility] CALCIUM 9.5 8.6 - 10.4 mg/dL 10/12/2023 6:02 AM [facility] BUN 43(H) 6 - 20 mg/dL 10/12/2023 6:02 AM [facility] CREATININE 1.20(H) 0.67 - 1.17 mg/dL 10/12/2023 6:02 AM [facility] Comment:The GFR result is no t clinically significant on patients <18 or >70 years of age. GLUCOSE 94 74 - 99 mg/dL 10/12/2023 6:02 AM [facility] ALBUMIN 3.4(L) 3.5 - 5.2 g/dL 10/12/2023 6:02 AM [facility] PHOSPHORUS 4.2 2.5 - 4.5 mg/dL 10/12/2023 6:02 AM [facility] GFR 60 mL/min/1.7 3 sq meter 10/12/2023 6:02 AM [facility] Comment:eGFR calculated with 2020 CKD-EPI equation. Vegetarian diet, extremely high or low muscle mass, and may affect results. Cystatin C with Glomerular Filtration Rate is a suitable alternative for these patients. ANION GAP 13 8 - 16 mmol/L 10/12/2023 6:02 AM [facility] Blood Collection / Unknown 10/12/2023 4:00 AM ASSESSMENT DIRECTOR 10/12/2023 5:07 AM ASSESSMENT DIRECTOR Erik Chairez MD CHEMISTRY ORDERABLES Final Resul t 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
--- OUTSIDE RECORDS SUMMARY | 2025-04-30 08:09 | XMS_ITS | Encounter Summary ---
Author Organization [facility] Address [address] [place] [address] Care Team Providers Care Board Runner Name Role Phone Unavailable Primary Care Provider Unavailabl e Encounter Details Date Type Department Care Team (Late st Contact Info) Description 10/20/2023 Lab Requisition [facility] Laboratory Services [address] [place] [address] [place] [address] [place] [address] Social History Tobacco Use Types Packs/Day Years Used Date Smoking Tobacco: Never Assessed Sex and Gender Information Value Date Recorded Sex Assigned at Not on file Legal Sex Male 9:18 AM PLANT NURSERY WORKER Gender Identity Not on file Sexual Orientation Not on file documented as of this encounter Plan of Treatment Not on file documented as of this encounter Procedures Procedure Name Priority Date/Time Associated Diagnosis Comments CBC WITH DIFFERENTIAL Routine 10/20/2023 2:20 AM PLANT NURSERY WORKER BASIC METABOLIC PANEL Routine 10/20/2023 2:20 AM PLANT NURSERY WORKER documented in this encounter Results * (ABNORMAL) CBC WITH DIFFERENTIAL (10/20/2023 2:20 AM PLANT NURSERY WORKER) WBC 8.3 4.5 - 10.5 K/uL 10/20/2023 5:25 AM PLANT NURSERY WORKER [facility] LABORATORY SERVICES - [facility] RBC 3.82(L) 4.50 - 5.40 M/uL 10/20/2023 5:25 AM PLANT NURSERY WORKER [facility] LABORATORY [facility] - [facility] HEMOGLOBIN 11.2(L) 13.6 - 16.5 g/dL 10/20/2023 5:25 AM PLANT NURSERY WORKER [facility] LABORATORY SERVICES - [facility] HEMATOCRIT 35.0(L) 40.0 - 48.0 % 10/20/2023 5:25 AM PLANT NURSERY WORKER [facility] LABORATORY SERVICES [facility] MCV 91.6 82.0 - 99.0 fL 10/20/2023 5:25 AM PLANT NURSERY WORKER [facility] LABORATORY SERVICES - [facility] MCH 29.4 27.8 - 34.5 pg 10/20/2023 5:25 AM PLANT NURSERY WORKER [facility] LABORATORY SERVICES [facility] MCHC 32.1(L) 32.5 - 35.5 g/dL 10/20/2023 5:25 AM PLANT NURSERY WORKER [facility] LABORATORY SERVICES - [facility] RDW 17.4(H) 11.5 - 14.5 % 10/20/2023 5:25 AM PLANT NURSERY WORKER [facility] LAB[facility] SERVICES - [facility] PLATELETS 255 160 - 420 K/uL 10/20/2023 5:25 AM PLANT NURSERY WORKER [facility] LAB[facility]ATORY SERVICES [facility] MPV 9.4 8.7 - 12.7 fL 10/20/2023 5:25 AM PLANT NURSERY WORKER [facility] LABORATORY SERVICES - [facility] NEUTROPHILS 60 % 10/20/2023 5:25 AM PLANT NURSERY WORKER [facility] LAB[facility] - [facility] LYMPHOCYTES 23 % 10/20/2023 5:25 AM PLANT NURSERY WORKER [employer] LABORATORY SERVICES [facility] MONOCYTES 6 % 10/20/2023 5:25 AM PLANT NURSERY WORKER [facility] LAB[facility] SERVICES [facility] EOSINOPHILS 11 % 10/20/2023 5:25 AM PLANT NURSERY WORKER [facility] LABOR[facility] SERVICES [facility] BASOPHILS 1 % 10/20/2023 5:25 AM PLANT NURSERY WORKER [facility] LABORAT[facility] SERVICES [facility] NEUTROPHIL ABSOLUTE 4.90 1.90 - 7.00 K/uL 10/20/2023 5:25 AM PLANT NURSERY WORKER [facility] LAB[facility] SERVICES [facility] LYMPHOCYTE ABSOLUTE 1.90 0.70 - 4.50 K/uL 10/20/2023 5:25 AM PLANT NURSERY WORKER [employer] LABORATORY SERVICES [facility] MONOCYTE ABSOLUTE 0.50 0.10 - 1.30 K/uL 10/20/2023 5:25 AM PLANT NURSERY WORKER [facility] LAB[facility] SERVICES [facility] EOSINOPHIL ABSOLUTE 0.90(H) 0.00 - 0.70 K/uL 10/20/2023 5:25 AM PLANT NURSERY WORKER [facility] LAB[facility] SERVICES [facility] BASOPHILS ABSOLUTE 0.00 0.00 - 0.20 K/uL 10/20/2023 5:25 AM [facility] Blood 10/20/2023 2:20 AM PLANT NURSERY WORKER 10/20/2023 5:15 AM PLANT NURSERY WORKER Erik Chairez MD HEMATOLOGY ORDERABLES Final Resu lt [facility] CLIA# [id number] [place] [address] * (ABNORMAL) BASIC METABOLIC PANEL (10/20/2023 2:20 AM PLANT NURSERY WORKER) SODIUM 140 136 - 145 mmol/L 10/20/2023 5:53 AM [facility] POTASSIUM 3.8 3.4 - 5.1 mmol/L 10/20/2023 5:53 AM [facility] CHLORIDE 101 98 - 107 mmol/L 10/20/2023 5:53 AM [facility] CO2 26 22 - 29 mmol/L 10/20/2023 5:53 AM [facility] CALCIUM 9.6 8.6 - 10.4 mg/dL 10/20/2023 5:53 AM [facility] BUN 30(H) 6 - 20 mg/dL 10/20/2023 5:53 AM [facility] CREATININE 0.89 0.67 - 1.17 mg/dL 10/20/2023 5:53 AM [facility] Comment:The GFR result is no t clinically significant on patients <18 or >70 years of age. GLUCOSE 110(H) 74 - 99 mg/dL 10/20/2023 5:53 AM [facility] GFR >60 mL/min/1.7 3 sq meter 10/20/2023 5:53 AM [facility] Comment:eGFR calculated with 2020 CKD-EPI equation. Vegetarian diet, extremely high or low muscle mass, and may affect results. Cystatin C with Glomerular Filtration Rate is a suitable alternative for these patients. ANION GAP 13 8 - 16 mmol/L 10/20/2023 5:53 AM PLANT NURSERY WORKER [facility] LABORATORY SERVICES [facility] Blood 10/20/2023 2:20 AM PLANT NURSERY WORKER 10/20/2023 5:15 AM PLANT NURSERY WORKER Erik Chairez MD CHEMISTRY ORDERABLES Final Resul t [facility]ORY [facility] CLIA# [id number] [place] [address] documented in this encounter Visit Diagnoses Not on filedocumented in this encounter Additional Health Concerns Infection Onset Date Last Indicated Resolved Time 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
--- OUTSIDE RECORDS SUMMARY | 2025-04-30 08:09 | XMS_ITS | Encounter Summary ---
Author Organization [facility] Address [address] [place] [address] Care Team Providers Care Building And Construction Manager Name Role Phone Unavailable Primary Care Provider Unavailabl e Encounter Details Date Type Department Care Team (Late st Contact Info) Description 10/10/2023 Lab Requisition [facility] Laboratory Services [address] [place] [address] [place] [id number] [place] [address] Social History Tobacco Use Types Packs/Day Years Used Date Smoking Tobacco: Never Assessed Sex and Gender Information Value Date Recorded Sex Assigned at Not on file Legal Sex Male 9:18 AM GEOLOGY PROFESSOR Gender Identity Not on file Sexual Orientation Not on file documented as of this encounter Plan of Treatment Not on file documented as of this encounter Procedures Procedure Name Priority Date/Time Associated Diagnosis Comments CBC WITH DIFFERENTIAL Routine 10/10/2023 3:30 AM GEOLOGY PROFESSOR PTT Routine 10/10/2023 3:30 AM GEOLOGY PROFESSOR PROTIME-INR Routine 10/10/2023 3:30 AM GEOLOGY PROFESSOR PREALBUMIN Routine 10/10/2023 3:30 AM GEOLOGY PROFESSOR COMPREHENSIVE METABOLIC PANEL Routine 10/10/2023 3:30 AM GEOLOGY PROFESSOR documented in this encounter Results * PTT (10/10/2023 3:30 AM GEOLOGY PROFESSOR) PTT 23.4 23.1 - 37.1 seconds 10/10/2023 10:14 AM GEOLOGY PROFESSOR [facility] LABORATORY SERVICES [facility] Blood Collection / Unknown 10/10/2023 3:30 AM GEOLOGY PROFESSOR 10/10/2023 9:51 AM GEOLOGY PROFESSOR Erik Chairez MD HEMATOLOGY ORDERABLES Final Resu lt [facility] CLIA# [id number] [place] [address] * (ABNORMAL) PROTIME-INR (10/10/2023 3:30 AM GEOLOGY PROFESSOR) PROTIME 15.0(H) 11.5 - 14.7 Seconds 10/10/2023 10:14 AM GEOLOGY PROFESSOR [facility] LABORATORY [facility] INR 1.2(H) 0.9 - 1.1 10/10/2023 10:14 AM GEOLOGY PROFESSOR [facility] LABORATORY [facility] Blood Collection / Unknown 10/10/2023 3:30 AM GEOLOGY PROFESSOR 10/10/2023 9:51 AM GEOLOGY PROFESSOR Erik Chairez MD HEMATOLOGY ORDERABLES Final Resu lt [facility] CLIA# [id number] [place] [address] * PREALBUMIN (10/10/2023 3:30 AM GEOLOGY PROFESSOR) PREALBUMIN 23 20 - 40 mg/dL 10/10/2023 2:24 PM GEOLOGY PROFESSOR [facility] LABORATORY [facility] Blood Collection / Unknown 10/10/2023 3:30 AM GEOLOGY PROFESSOR 10/10/2023 9:51 AM GEOLOGY PROFESSOR Erik Chairez MD CHEMISTRY ORDERABLES Final Resul t [facility] CLIA# [id number] [address] [place] [address] * (ABNORMAL) CBC WITH DIFFERENTIAL (10/10/2023 3:30 AM GEOLOGY PROFESSOR) [facility] WBC 10.1 4.5 - 10.5 K/uL 10/10/2023 11:06 AM [facility] RBC 3.85(L) 4.50 - 5.40 M/uL 10/10/2023 11:06 AM [facility] HEMOGLOBIN 11.6(L) 13.6 - 16.5 g/dL 10/10/2023 11:06 AM [facility] HEMATOCRIT 36.6(L) 40.0 - 48.0 % 10/10/2023 11:06 AM [facility] MCV 95.2 82.0 - 99.0 fL 10/10/2023 11:06 AM [facility] MCH 30.1 27.8 - 34.5 pg 10/10/2023 11:06 AM [facility] MCHC 31.6(L) 32.5 - 35.5 g/dL 10/10/2023 11:06 AM [facility] RDW 19.2(H) 11.5 - 14.5 % 10/10/2023 11:06 AM [facility] [address] PLATELETS 250 160 - 420 K/uL 10/10/2023 11:06 AM [facility] [address] MPV 9.8 8.7 - 12.7 fL 10/10/2023 11:06 AM [facility] NEUTROPHILS 72 % 10/10/2023 11:06 AM [facility] LYMPHOCYTES 15 % 10/10/2023 11:06 AM GEOLOGY PROFESSOR [facility] LABORATORY [facility] MONOCYTES 7 % 10/10/2023 11:06 AM GEOLOGY PROFESSOR [facility] LABORATORY [facility] EOSINOPHILS 5 % 10/10/2023 11:06 AM GEOLOGY PROFESSOR [facility] LABORATORY [facility] BASOPHILS 0 % 10/10/2023 11:06 AM [facility] LABORATORY [facility] NEUTROPHIL ABSOLUTE 7.20(H) 1.90 - 7.00 K/uL 10/10/2023 11:06 AM [facility] [address] LYMPHOCYTE ABSOLUTE 1.50 0.70 - 4.50 K/uL 10/10/2023 11:06 AM GEOLOGY PROFESSOR [facility] LABORATORY [facility] MONOCYTE ABSOLUTE 0.70 0.10 - 1.30 K/uL 10/10/2023 11:06 AM GEOLOGY PROFESSOR [facility] LABORATORY [facility] EOSINOPHIL ABSOLUTE 0.50 0.00 - 0.70 K/uL 10/10/2023 11:06 AM GEOLOGY PROFESSOR [facility] LABORATORY [facility] BASOPHILS ABSOLUTE 0.00 0.00 - 0.20 K/uL 10/10/2023 11:06 AM GEOLOGY PROFESSOR [facility] Blood Collection / Unknown 10/10/2023 3:30 AM GEOLOGY PROFESSOR 10/10/2023 9:51 AM GEOLOGY PROFESSOR us Erik Chairez MD HEMATOLOGY ORDERABLES Final Resu lt [facility] CLIA# [id number] [place] [address] * (ABNORMAL) COMPREHENSIVE METABOLIC PANEL (10/10/2023 3:30 AM GEOLOGY PROFESSOR) SODIUM 142 136 - 145 mmol/L 10/10/2023 10:49 AM [facility] POTASSIUM 4.1 3.4 - 5.1 mmol/L 10/10/2023 10:49 AM [facility] [address] CHLORIDE 104 98 - 107 mmol/L 10/10/2023 10:49 AM [facility] CO2 23 22 - 29 mmol/L 10/10/2023 10:49 AM [facility] [address] CALCIUM 9.4 8.6 - 10.4 mg/dL 10/10/2023 10:49 AM [facility] [address] [facility] BUN 34(H) 6 - 20 mg/dL 10/10/2023 10:49 AM [facility] [address] [facility] CREATININE 1.24(H) 0.67 - 1.17 mg/dL 10/10/2023 10:49 AM [facility] LABORATORY [facility] Comment:The GFR result is no t clinically significant on patients <18 or >70 years of age. GLUCOSE 91 74 - 99 mg/dL 10/10/2023 10:49 AM [facility] TOTAL PROTEIN 7.4 6.3 - 8.7 g/dL 10/10/2023 10:49 AM [facility] ALBUMIN 3.6 3.5 - 5.2 g/dL 10/10/2023 10:49 AM [facility] BILIRUBIN TOTAL 0.6 0.2 - 1.1 mg/dL 10/10/2023 10:49 AM [facility] ALKALINE PHOSPHATASE 84 40 - 150 U/L 10/10/2023 10:49 AM [facility] AST 15 0 - 41 U/L 10/10/2023 10:49 AM [facility] ALT 13 0 - 41 U/L 10/10/2023 10:49 AM [facility] GFR 58 mL/min/1.7 3 sq meter 10/10/2023 10:49 AM [facility] Comment:eGFR calculated with 2020 CKD-EPI equation. Vegetarian diet, extremely high or low muscle mass, and may affect results. Cystatin C with Glomerular Filtration Rate is a suitable alternative for these patients. 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
--- OUTSIDE RECORDS SUMMARY | 2025-04-30 08:09 | XMS_ITS | Encounter Summary ---
Author Organization [facility] Address [address] [place] [address] Care Team Providers Care Textile Slitting Machine Operator Name Role Phone Unavailable Primary Care Provider Unavailabl e Encounter Details Date Type Department Care Team (Late st Contact Info) Description 11/07/2023 Lab Requisition [facility] Laboratory Services [address] [place] [address] [place] [address] [place] [address] Social History Tobacco Use Types Packs/Day Years Used Date Smoking Tobacco: Never Assessed Sex and Gender Information Value Date Recorded Sex Assigned at Not on file Legal Sex Male 9:18 AM QUALITY TECHNICIAN FIBERGLASS Gender Identity Not on file Sexual Orientation Not on file documented as of this encounter Plan of Treatment Not on file documented as of this encounter Procedures Procedure Name Priority Date/Time Associated Diagnosis Comments CBC WITH DIFFERENTIAL Routine 11/07/2023 4:30 AM QUALITY TECHNICIAN F[employer]ERGLASS BASIC METABOLIC PANEL Routine 11/07/2023 4:30 AM QUALITY TECHNICIAN [employer]ERGLASS documented in this encounter Results * (ABNORMAL) CBC WITH DIFFERENTIAL (11/07/2023 4:30 AM QUALITY TECHNICIAN FIBERGLASS) WBC 9.4 4.5 - 10.5 K/uL 11/07/2023 8:10 AM QUALITY TECHNICIAN FIBERGLASS [facility] LABORATORY SERVICES - [facility] RBC 4.06(L) 4.50 - 5.40 M/uL 11/07/2023 8:10 AM QUALITY TECHNICIAN FIBERGLASS [facility] LABORATORY [facility] HEMOGLOBIN 11.9(L) 13.6 - 16.5 g/dL 11/07/2023 8:10 AM QUALITY TECHNICIAN FIBERGLASS [facility] LABORATORY [facility] HEMATOCRIT 37.1(L) 40.0 - 48.0 % 11/07/2023 8:10 AM QUALITY TECHNICIAN FIBERGLASS [facility] LABORATORY SERVICES [facility] MCV 91.5 82.0 - 99.0 fL 11/07/2023 8:10 AM QUALITY TECHNICIAN FIBERGLASS [facility] LABORATORY SERVICES - [facility] MCH 29.4 27.8 - 34.5 pg 11/07/2023 8:10 AM QUALITY TECHNICIAN FIBERGLASS [facility] LABORATORY SERVICES [facility] MCHC 32.1(L) 32.5 - 35.5 g/dL 11/07/2023 8:10 AM QUALITY TECHNICIAN FIBERGLASS [facility] LABORATORY SERVICES [facility] RDW 16.9(H) 11.5 - 14.5 % 11/07/2023 8:10 AM QUALITY TECHNICIAN FIBERGLASS [facility] LABORATORY SERVICES [facility] PLATELETS 270 160 - 420 K/uL 11/07/2023 8:10 AM QUALITY TECHNICIAN FIBERGLASS [facility] LABORATORY SERVICES [facility] MPV 10.0 8.7 - 12.7 fL 11/07/2023 8:10 AM QUALITY TECHNICIAN FIBERGLASS [facility] LABORATORY SERVICES [facility] NEUTROPHILS 61 % 11/07/2023 8:10 AM QUALITY TECHNICIAN FIBERGLASS [facility] LABORATORY SERVICES [facility] LYMPHOCYTES 21 % 11/07/2023 8:10 AM QUALITY TECHNICIAN FIBERGLASS [email or web address] SERVICES [facility] MONOCYTES 6 % 11/07/2023 8:10 AM QUALITY TECHNICIAN FIBERGLASS [email or web address] LAB[facility] SERVICES [facility] EOSINOPHILS 11 % 11/07/2023 8:10 AM QUALITY TECHNICIAN [employer]ERGLASS [email or web address] SERVICES [facility] BASOPHILS 1 % 11/07/2023 8:10 AM QUALITY TECHNICIAN FIBERGLASS [facility] LABORATORY SERVICES [facility] NEUTROPHIL ABSOLUTE 5.70 1.90 - 7.00 K/uL 11/07/2023 8:10 AM QUALITY TECHNICIAN FIBERGLASS [facility] LABORATORY SERVICES [facility] LYMPHOCYTE ABSOLUTE 2.00 0.70 - 4.50 K/uL 11/07/2023 8:10 AM QUALITY TECHNICIAN [employer] [facility] MONOCYTE ABSOLUTE 0.60 0.10 - 1.30 K/uL 11/07/2023 8:10 AM QUALITY TECHNICIAN FIBERGLASS [facility] LABORATORY SERVICES [facility] EOSINOPHIL ABSOLUTE 1.00(H) 0.00 - 0.70 K/uL 11/07/2023 8:10 AM QUALITY TECHNICIAN FIBERGLASS [facility] LABORATORY SERVICES [facility] BASOPHILS ABSOLUTE 0.10 0.00 - 0.20 K/uL 11/07/2023 8:10 AM [facility] Blood 11/07/2023 4:30 AM QUALITY TECHNICIAN F[employer]ERGLASS 11/07/2023 8:06 AM QUALITY TECHNICIAN F[employer]ERGLASS us Erik Chairez MD HEMATOLOGY ORDERABLES Final Resu lt [facility] CLIA# [id number] [place] [address] * (ABNORMAL) BASIC METABOLIC PANEL (11/07/2023 4:30 AM QUALITY TECHNICIAN FIBERGLASS) SODIUM 137 136 - 145 mmol/L 11/07/2023 8:41 AM [facility] POTASSIUM 4.2 3.4 - 5.1 mmol/L 11/07/2023 8:41 AM [facility] CHLORIDE 100 98 - 107 mmol/L 11/07/2023 8:41 AM [facility] CO2 22 22 - 29 mmol/L 11/07/2023 8:41 AM [facility] CALCIUM 9.9 8.6 - 10.4 mg/dL 11/07/2023 8:41 AM [facility] BUN 41(H) 6 - 20 mg/dL 11/07/2023 8:41 AM [facility] CREATININE 1.03 0.67 - 1.17 mg/dL 11/07/2023 8:41 AM [facility] Comment:The GFR result is no t clinically significant on patients <18 or >70 years of age. GLUCOSE 109(H) 74 - 99 mg/dL 11/07/2023 8:41 AM [facility] GFR >60 mL/min/1.7 3 sq meter 11/07/2023 8:41 AM [facility] Comment:eGFR calculated with 2020 CKD-EPI equation. Vegetarian diet, extremely high or low muscle mass, and may affect results. Cystatin C with Glomerular Filtration Rate is a suitable alternative for these patients. ANION GAP 15 8 - 16 mmol/L 11/07/2023 8:41 AM QUAL[employer] TECHNICIAN [place] [facility] Blood 11/07/2023 4:30 AM QUALITY TECHNICIAN [place] 11/07/2023 8:12 AM QUALITY TECHNICIAN [place] Erik Chairez MD CHEMISTRY ORDERABLES Final Resul t [facility] CLIA# [id number] [place] [address] documented in this encounter Visit Diagnoses Not on filedocumented in this encounter Additional Health Concerns Infection Onset Date Last Indicated Resolved Time 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
--- OUTSIDE RECORDS SUMMARY | 2025-04-30 08:09 | XMS_ITS | Encounter Summary ---
Author Organization [facility] Address [address] [place] [address] Care Team Providers Care Sales Assoc Name Role Phone Unavailable Primary Care Provider Unavailabl e Encounter Details Date Type Department Care Team (Late st Contact Info) Description 11/01/2023 Lab Requisition [facility] Laboratory Services [address] [place] [address] [place] [address] [place] [address] Social History Tobacco Use Types Packs/Day Years Used Date Smoking Tobacco: Never Assessed Sex and Gender Information Value Date Recorded Sex Assigned at Not on file Legal Sex Male 9:18 AM REJOGGER Gender Identity Not on file Sexual Orientation Not on file documented as of this encounter Plan of Treatment Not on file documented as of this encounter Procedures Procedure Name Priority Date/Time Associated Diagnosis Comments CBC WITH DIFFERENTIAL Routine 11/01/2023 4:20 AM REJOGGER BASIC METABOLIC PANEL Routine 11/01/2023 4:20 AM REJOGGER documented in this encounter Results * (ABNORMAL) CBC WITH DIFFERENTIAL (11/01/2023 4:20 AM REJOGGER) WBC 8.5 4.5 - 10.5 K/uL 11/01/2023 8:48 AM REJOGGER [facility]AT[facility] SERVICES - [facility] RBC 3.87(L) 4.50 - 5.40 M/uL 11/01/2023 8:48 AM REJOGGER [facility] HEMOGLOBIN 11.2(L) 13.6 - 16.5 g/dL 11/01/2023 8:48 AM REJOGGER [facility] - [facility] HEMATOCRIT 34.9(L) 40.0 - 48.0 % 11/01/2023 8:48 AM REJOGGER [facility] LABORAT[facility] SERVICES [facility] MCV 90.3 82.0 - 99.0 fL 11/01/2023 8:48 AM REJOGGER [facility] - [facility] MCH 29.0 27.8 - 34.5 pg 11/01/2023 8:48 AM REJOGGER [facility] SERVICES [facility] MCHC 32.1(L) 32.5 - 35.5 g/dL 11/01/2023 8:48 AM REJOGGER [facility] SERVICES [facility] RDW 17.0(H) 11.5 - 14.5 % 11/01/2023 8:48 AM REJOGGER [facility] SERVICES [facility] PLATELETS 246 160 - 420 K/uL 11/01/2023 8:48 AM REJOGGER [facility] MPV 9.7 8.7 - 12.7 fL 11/01/2023 8:48 AM REJOGGER [facility] NEUTROPHILS 53 % 11/01/2023 8:48 AM REJOGGER [facility] LYMPHOCYTES 29 % 11/01/2023 8:48 AM REJOGGER [facility] MONOCYTES 7 % 11/01/2023 8:48 AM REJOGGER [facility] EOSINOPHILS 12 % 11/01/2023 8:48 AM REJOGGER [facility] BASOPHILS 1 % 11/01/2023 8:48 AM REJOGGER [facility] SERVICES [facility] NEUTROPHIL ABSOLUTE 4.50 1.90 - 7.00 K/uL 11/01/2023 8:48 AM REJOGGER [facility]OR[facility] SERVICES [facility] LYMPHOCYTE ABSOLUTE 2.40 0.70 - 4.50 K/uL 11/01/2023 8:48 AM REJOGGER [facility] MONOCYTE ABSOLUTE 0.60 0.10 - 1.30 K/uL 11/01/2023 8:48 AM REJOGGER [facility]OR[facility] SERVICES [facility] EOSINOPHIL ABSOLUTE 1.00(H) 0.00 - 0.70 K/uL 11/01/2023 8:48 AM REJOGGER [facility] SERVICES [facility] BASOPHILS ABSOLUTE 0.00 0.00 - 0.20 K/uL 11/01/2023 8:48 AM [facility] Blood Collection / Unknown 11/01/2023 4:20 AM REJOGGER 11/01/2023 7:57 AM REJOGGER Erik Chairez MD HEMATOLOGY ORDERABLES Final Resu lt [facility] CLIA# [id number] [address] [place] [address] * (ABNORMAL) BASIC METABOLIC PANEL (11/01/2023 4:20 AM REJOGGER) SODIUM 139 136 - 145 mmol/L 11/01/2023 9:12 AM [facility] POTASSIUM 3.7 3.4 - 5.1 mmol/L 11/01/2023 9:12 AM [facility] CHLORIDE 100 98 - 107 mmol/L 11/01/2023 9:12 AM [facility] CO2 27 22 - 29 mmol/L 11/01/2023 9:12 AM [facility] CALCIUM 9.8 8.6 - 10.4 mg/dL 11/01/2023 9:12 AM [facility] BUN 41(H) 6 - 20 mg/dL 11/01/2023 9:12 AM [facility] CREATININE 0.93 0.67 - 1.17 mg/dL 11/01/2023 9:12 AM [facility] Comment:The GFR result is no t clinically significant on patients <18 or >70 years of age. GLUCOSE 109(H) 74 - 99 mg/dL 11/01/2023 9:12 AM [facility] GFR >60 mL/min/1.7 3 sq meter 11/01/2023 9:12 AM [facility] Comment:eGFR calculated with 2020 CKD-EPI equation. Vegetarian diet, extremely high or low muscle mass, and may affect results. Cystatin C with Glomerular Filtration Rate is a suitable alternative for these patients. ANION GAP 12 8 - 16 mmol/L 11/01/2023 9:12 AM REJOGGER [facility] Blood Collection / Unknown 11/01/2023 4:20 AM REJOGGER 11/01/2023 7:57 AM REJOGGER Erik Chairez MD CHEMISTRY ORDERABLES Final Resul t [facility] CLIA# [id number] [place] [address] documented in this encounter Visit Diagnoses Not on filedocumented in this encounter Additional Health Concerns Infection Onset Date Last Indicated Resolved Time CRE-CP Comment:10/09/23 Klebsiella pneumoniae, Sputum 10/09/2023 10/09/2023 05/28/2024 2:37 PM C DT 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
--- OUTSIDE RECORDS SUMMARY | 2025-04-30 08:09 | XMS_ITS | Encounter Summary ---
Author Organization [facility] Address [address] [place] [address] Care Team Providers Care Construction Helper Name Role Phone Unavailable Primary Care Provider Unavailabl e Encounter Details Date Type Department Care Team (Late st Contact Info) Description 10/26/2023 Lab Requisition [facility] Laboratory Services [address] [place] [address] [place] [id number] [place] [address] Social History Tobacco Use Types Packs/Day Years Used Date Smoking Tobacco: Never Assessed Sex and Gender Information Value Date Recorded Sex Assigned at Not on file Legal Sex Male 9:18 AM TECHNICAL SALES CONSULTANT Gender Identity Not on file Sexual Orientation Not on file documented as of this encounter Plan of Treatment Not on file documented as of this encounter Procedures Procedure Name Priority Date/Time Associated Diagnosis Comments CBC WITH DIFFERENTIAL Routine 10/26/2023 3:20 AM TECHNICAL SALES CONSULTANT BASIC METABOLIC PANEL Routine 10/26/2023 3:20 AM TECHNICAL SALES CONSULTANT documented in this encounter Results * (ABNORMAL) CBC WITH DIFFERENTIAL (10/26/2023 3:20 AM TECHNICAL SALES CONSULTANT) WBC 9.2 4.5 - 10.5 K/uL 10/26/2023 5:32 AM TECHNICAL SALES CONSULTANT [facility] LAB[facility]ORY SERVICES - [facility] RBC 3.83(L) 4.50 - 5.40 M/uL 10/26/2023 5:32 AM TECHNICAL SALES CONSULTANT [facility] LABORATORY [facility] - [facility] HEMOGLOBIN 11.4(L) 13.6 - 16.5 g/dL 10/26/2023 5:32 AM TECHNICAL SALES CONSULTANT [facility]ATORY SERVICES - [facility] HEMATOCRIT 35.4(L) 40.0 - 48.0 % 10/26/2023 5:32 AM TECHNICAL SALES CONSULTANT [facility] LABORATORY SERVICES [facility] MCV 92.4 82.0 - 99.0 fL 10/26/2023 5:32 AM TECHNICAL SALES CONSULTANT [facility] LABORATORY SERVICES - [facility] MCH 29.6 27.8 - 34.5 pg 10/26/2023 5:32 AM TECHNICAL SALES CONSULTANT [facility] LABORATORY SERVICES [facility] MCHC 32.0(L) 32.5 - 35.5 g/dL 10/26/2023 5:32 AM TECHNICAL SALES CONSULTANT [facility] LABORATORY SERVICES [facility] RDW 17.3(H) 11.5 - 14.5 % 10/26/2023 5:32 AM TECHNICAL SALES CONSULTANT [facility] LABORATORY SERVICES [facility] PLATELETS 240 160 - 420 K/uL 10/26/2023 5:32 AM TECHNICAL SALES CONSULTANT [facility] LABORATORY SERVICES [facility] MPV 9.3 8.7 - 12.7 fL 10/26/2023 5:32 AM TECHNICAL SALES CONSULTANT [facility] LABORATORY SERVICES [facility] NEUTROPHILS 69 % 10/26/2023 5:32 AM TECHNICAL SALES CONSULTANT [facility] LABORATORY SERVICES [facility] LYMPHOCYTES 21 % 10/26/2023 5:32 AM TECHNICAL SALES CONSULTANT [employer] LABORATORY SERVICES [facility] MONOCYTES 6 % 10/26/2023 5:32 AM TECHNICAL SALES CONSULTANT [facility] LABORATORY SERVICES [facility] EOSINOPHILS 4 % 10/26/2023 5:32 AM TECHNICAL SALES CONSULTANT [facility] LABORATORY SERVICES [facility] BASOPHILS 1 % 10/26/2023 5:32 AM TECHNICAL SALES CONSULTANT [facility] LABORATORY SERVICES [facility] NEUTROPHIL ABSOLUTE 6.30 1.90 - 7.00 K/uL 10/26/2023 5:32 AM TECHNICAL SALES CONSULTANT [facility] LABORATORY SERVICES [facility] LYMPHOCYTE ABSOLUTE 1.90 0.70 - 4.50 K/uL 10/26/2023 5:32 AM TECHNICAL SALES CONSULTANT [facility] MONOCYTE ABSOLUTE 0.50 0.10 - 1.30 K/uL 10/26/2023 5:32 AM TECHNICAL SALES CONSULTANT [facility] LABORATORY SERVICES [facility] EOSINOPHIL ABSOLUTE 0.40 0.00 - 0.70 K/uL 10/26/2023 5:32 AM TECHNICAL SALES CONSULTANT [facility] LABORATORY SERVICES [facility] BASOPHILS ABSOLUTE 0.00 0.00 - 0.20 K/uL 10/26/2023 5:32 AM [facility] Blood Collection / Unknown 10/26/2023 3:20 AM TECHNICAL SALES CONSULTANT 10/26/2023 4:57 AM TECHNICAL SALES CONSULTANT Erik Chairez MD HEMATOLOGY ORDERABLES Final Resu lt [facility] CLIA# [id number] [facility] [facility] [place] [address] * (ABNORMAL) BASIC METABOLIC PANEL (10/26/2023 3:20 AM TECHNICAL SALES CONSULTANT) SODIUM 137 136 - 145 mmol/L 10/26/2023 5:58 AM [facility] POTASSIUM 4.2 3.4 - 5.1 mmol/L 10/26/2023 5:58 AM [facility] CHLORIDE 100 98 - 107 mmol/L 10/26/2023 5:58 AM [facility] CO2 27 22 - 29 mmol/L 10/26/2023 5:58 AM [facility] CALCIUM 9.8 8.6 - 10.4 mg/dL 10/26/2023 5:58 AM [facility] BUN 39(H) 6 - 20 mg/dL 10/26/2023 5:58 AM [facility] CREATININE 1.01 0.67 - 1.17 mg/dL 10/26/2023 5:58 AM [facility] Comment:The GFR result is no t clinically significant on patients <18 or >70 years of age. GLUCOSE 110(H) 74 - 99 mg/dL 10/26/2023 5:58 AM [facility] GFR >60 mL/min/1.7 3 sq meter 10/26/2023 5:58 AM [facility] Comment:eGFR calculated with 2020 CKD-EPI equation. Vegetarian diet, extremely high or low muscle mass, and may affect results. Cystatin C with Glomerular Filtration Rate is a suitable alternative for these patients. ANION GAP 10 8 - 16 mmol/L 10/26/2023 5:58 AM TECHNICAL SALES CONSULTANT [facility] LABORATORY SERVICES [facility] Blood Collection / Unknown 10/26/2023 3:20 AM TECHNICAL SALES CONSULTANT 10/26/2023 4:57 AM TECHNICAL SALES CONSULTANT Erik Chairez MD CHEMISTRY ORDERABLES Final Resul t [facility] LAB[facility]ATORY SERVICES [facility] CLIA# [id number] [address] [place] [address] documented in this encounter Visit Diagnoses Not on filedocumented in this encounter Additional Health Concerns Infection Onset Date Last Indicated Resolved Time 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
--- OUTSIDE RECORDS SUMMARY | 2025-04-30 08:09 | XMS_ITS | Encounter Summary ---
Author Organization [facility] Address [address] [place] [address] Care Team Providers Care Grain Operator Name Role Phone Unavailable Primary Care Provider Unavailabl e Encounter Details Date Type Department Care Team (Late st Contact Info) Description 10/14/2023 Lab Requisition [facility] Laboratory Services [address] [place] [address] [place] [address] [place] [address] Social History Tobacco Use Types Packs/Day Years Used Date Smoking Tobacco: Never Assessed Sex and Gender Information Value Date Recorded Sex Assigned at Not on file Legal Sex Male 9:[address] Gender Identity Not on file Sexual Orientation Not on file documented as of this encounter Plan of Treatment Not on file documented as of this encounter Procedures Procedure Name Priority Date/Time Associated Diagnosis Comments CBC WITH DIFFERENTIAL Routine 10/14/2023 2:[address] TRIGLYCERIDE Routine 10/14/2023 2:[address] PHOSPHORUS Routine 10/14/2023 2:[address] MAGNESIUM LEVEL Routine 10/14/2023 2:[address] COMPREHENSIVE METABOLIC PANEL Routine 10/14/2023 2:[address] documented in this encounter Results * (ABNORMAL) TRIGLYCERIDE (10/14/2023 2:[address] CUTTER) TRIGLYCERIDE 161(H) <150 mg/dL 10/14/2023 8:[address] [facility] LABORATORY SERVICES [facility] Blood Collection / Unknown 10/14/2023 2:[address] 10/14/2023 7:[address] Narrative [facility] - 10/14/2023 8:[address] TRIGLYCERIDES mg/dL Normal < 150 Borderline High 150 - 199 High 200 - 499 Very High >= 500 Based on AHA/NCEP Guidelines. us Erik Chairez MD CHEMISTRY ORDERABLES Final Resul t Performing Organization Address City/[facility]/ZIP Co de Phone Number [facility] CLIA# [id number] [place] [address] * PHOSPHORUS (10/14/2023 2:[address]UTTER) PHOSPHORUS 3.4 2.5 - 4.5 mg/dL 10/14/2023 8:[address] [facility] Blood Collection / Unknown 10/14/2023 2:[address] 10/14/2023 7:[address] us Erik Chairez MD CHEMISTRY ORDERABLES Final Resul t Performing Organization Address City/[facility] Co de Phone Number [facility] [id number] [place] [address] * MAGNESIUM LEVEL (10/14/2023 2:[address]UTTER) MAGNESIUM 2.5 1.6 - 2.6 mg/dL 10/14/2023 8:[address] [facility] [employer] [facility] Blood Collection / Unknown 10/14/2023 2:[address] 10/14/2023 7:[address] us Erik Chairez MD CHEMISTRY ORDERABLES Final Resul t Performing Organization Address City/[facility]/ZIP Co de Phone Number [facility]# [id number] [address] [place] [address] * (ABNORMAL) CBC WITH DIFFERENTIAL (10/14/2023 2:[address]) [facility] WBC 9.2 4.5 - 10.5 K/uL 10/14/2023 8:02 AM [facility] LABORATORY [facility] RBC 3.58(L) 4.50 - 5.40 M/uL 10/14/2023 8:02 AM [facility] HEMOGLOBIN 11.0(L) 13.6 - 16.5 g/dL 10/14/2023 8:02 AM [facility] LAB[facility] HEMATOCRIT 33.5(L) 40.0 - 48.0 % 10/14/2023 8:02 AM [facility] LABORAT[facility] MCV 93.6 82.0 - 99.0 fL 10/14/2023 8:02 AM [facility] MCH 30.6 27.8 - 34.5 pg 10/14/2023 8:02 AM [facility] [employer] [facility] MCHC 32.7 32.5 - 35.5 g/dL 10/14/2023 8:02 AM [facility] [employer] [facility] RDW 17.7(H) 11.5 - 14.5 % 10/14/2023 8:02 AM [facility] LABORAT[facility] PLATELETS 214 160 - 420 K/uL 10/14/2023 8:02 AM [facility] [employer] [facility] MPV 9.2 8.7 - 12.7 fL 10/14/2023 8:02 AM [facility] [employer] [facility] NEUTROPHILS 58 % 10/14/2023 8:02 AM [facility] LAB[facility]AT[facility] LYMPHOCYTES 24 % 10/14/2023 8:02 AM [facility] LABOR[facility] MONOCYTES 8 % 10/14/2023 8:[address] [facility] LABORATORY [facility] EOSINOPHILS 9 % 10/14/2023 8:02 AM [facility]OR[facility] BASOPHILS 0 % 10/14/2023 8:02 AM [facility] LABOR[facility] NEUTROPHIL ABSOLUTE 5.40 1.90 - 7.00 K/uL 10/14/2023 8:02 AM [facility] [employer] [facility] LYMPHOCYTE ABSOLUTE 2.20 0.70 - 4.50 K/uL 10/14/2023 8:02 AM [facility] LAB[facility] MONOCYTE ABSOLUTE 0.70 0.10 - 1.30 K/uL 10/14/2023 8:02 AM [facility] EOSINOPHIL ABSOLUTE 0.90(H) 0.00 - 0.70 K/uL 10/14/2023 8:02 AM [facility] LAB[facility] BASOPHILS ABSOLUTE 0.00 0.00 - 0.20 K/uL 10/14/2023 8:02 AM [facility] Blood Collection / Unknown 10/14/2023 2:[address] 10/14/2023 7:[address] Erik Chairez MD HEMATOLOGY ORDERABLES Final Resu lt [facility] CLIA# [id number] [place] [address] * (ABNORMAL) COMPREHENSIVE METABOLIC PANEL (10/14/2023 2:[address]UTTER) SODIUM 135(L) 136 - 145 mmol/L 10/14/2023 8:26 AM [facility] POTASSIUM 4.0 3.4 - 5.1 mmol/L 10/14/2023 8:26 AM [facility] CHLORIDE 97(L) 98 - 107 mmol/L 10/14/2023 8:26 AM [facility] CO2 24 22 - 29 mmol/L 10/14/2023 8:26 AM [facility] CALCIUM 9.5 8.6 - 10.4 mg/dL 10/14/2023 8:26 AM [facility] BUN 36(H) 6 - 20 mg/dL 10/14/2023 8:26 AM [facility] CREATININE 1.18(H) 0.67 - 1.17 mg/dL 10/14/2023 8:26 AM [facility] [employer] [facility] Comment:The GFR result is no t clinically significant on patients <18 or >70 years of age. GLUCOSE 84 74 - 99 mg/dL 10/14/2023 8:26 AM [facility] TOTAL PROTEIN 7.4 6.3 - 8.7 g/dL 10/14/2023 8:26 AM [facility] ALBUMIN 3.6 3.5 - 5.2 g/dL 10/14/2023 8:26 AM [facility] BILIRUBIN TOTAL 0.6 0.2 - 1.1 mg/dL 10/14/2023 8:26 AM [facility] ALKALINE PHOSPHATASE 99 40 - 150 U/L 10/14/2023 8:26 AM [facility] AST 22 0 - 41 U/L 10/14/2023 8:26 AM [facility] ALT 16 0 - 41 U/L 10/14/2023 8:26 AM [facility] GFR >60 mL/min/1.7 3 sq meter 10/14/2023 8:26 AM [facility] Comment:eGFR calculated with 2020 CKD-EPI equation. Vegetarian diet, extremely high or low muscle mass, and may affect results. Cystatin C with Glomerular Filtration Rate is a suitable alternative for these patients. 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
--- OUTSIDE RECORDS SUMMARY | 2025-04-30 08:09 | XMS_ITS | Encounter Summary ---
Author Organization [facility] Address [address] [place] [address] Care Team Providers Care Communications Operator Name Role Phone Unavailable Primary Care Provider Unavailabl e Encounter Details Date Type Department Care Team (Late st Contact Info) Description 10/11/2023 Lab Requisition [facility] Laboratory Services [address] [place] [address] [place] [id number] [place] [address] Social History Tobacco Use Types Packs/Day Years Used Date Smoking Tobacco: Never Assessed Sex and Gender Information Value Date Recorded Sex Assigned at Not on file Legal Sex Male 9:18 AM RAW MATERIAL HANDLER Gender Identity Not on file Sexual Orientation Not on file documented as of this encounter Plan of Treatment Not on file documented as of this encounter Procedures Procedure Name Priority Date/Time Associated Diagnosis Comments CBC WITH DIFFERENTIAL Routine 10/11/2023 3:30 AM RAW MATERIAL HANDLER TRIGLYCERIDE Routine 10/11/2023 3:30 AM RAW MATERIAL HANDLER MAGNESIUM LEVEL Routine 10/11/2023 3:30 AM RAW MATERIAL HANDLER RENAL FUNCTION PANEL Routine 10/11/2023 3:30 AM RAW MATERIAL HANDLER documented in this encounter Results * (ABNORMAL) TRIGLYCERIDE (10/11/2023 3:30 AM RAW MATERIAL HANDLER) TRIGLYCERIDE 192(H) <150 mg/dL 10/11/2023 6:28 AM RAW MATERIAL HANDLER [facility] Blood 10/11/2023 3:30 AM RAW MATERIAL HANDLER 10/11/2023 5:43 AM RAW MATERIAL HANDLER Narrative [facility] - 10/11/2023 6:28 AM RAW MATERIAL HANDLER TRIGLYCERIDES mg/dL Normal < 150 Borderline High 150 - 199 High 200 - 499 Very High >= 500 Based on AHA/NCEP Guidelines. Erik Chairez MD CHEMISTRY ORDERABLES Final Resul t Performing Organization Address City/[facility]/ZIP Co de Phone Number [facility] CLIA# [id number] [place] [address] * MAGNESIUM LEVEL (10/11/2023 3:30 AM RAW MATERIAL HANDLER) MAGNESIUM 2.2 1.6 - 2.6 mg/dL 10/11/2023 6:28 AM [facility] Blood 10/11/2023 3:30 AM RAW MATERIAL HANDLER 10/11/2023 5:43 AM RAW MATERIAL HANDLER Erik Chairez MD CHEMISTRY ORDERABLES Final Resul t Performing Organization Address City/[facility]/ZIP Co de Phone Number [facility] CLIA# [id number] [address] [place] [address] * (ABNORMAL) CBC WITH DIFFERENTIAL (10/11/2023 3:30 AM RAW MATERIAL HANDLER) WBC 8.8 4.5 - 10.5 K/uL 10/11/2023 6:05 AM [facility] RBC 3.43(L) 4.50 - 5.40 M/uL 10/11/2023 6:05 AM [facility] HEMOGLOBIN 10.5(L) 13.6 - 16.5 g/dL 10/11/2023 6:05 AM [facility] HEMATOCRIT 32.7(L) 40.0 - 48.0 % 10/11/2023 6:05 AM [facility] MCV 95.4 82.0 - 99.0 fL 10/11/2023 6:05 AM [facility] MCH 30.7 27.8 - 34.5 pg 10/11/2023 6:05 AM [facility] MCHC 32.2(L) 32.5 - 35.5 g/dL 10/11/2023 6:05 AM [facility] RDW 18.7(H) 11.5 - 14.5 % 10/11/2023 6:05 AM [facility] PLATELETS 218 160 - 420 K/uL 10/11/2023 6:05 AM [facility] MPV 9.3 8.7 - 12.7 fL 10/11/2023 6:05 AM RAW MATERIAL HANDLER [facility] NEUTROPHILS 67 % 10/11/2023 6:05 AM RAW MATERIAL HANDLER [facility] LYMPHOCYTES 18 % 10/11/2023 6:05 AM RAW MATERIAL HANDLER [facility] MONOCYTES 7 % 10/11/2023 6:05 AM RAW MATERIAL HANDLER [facility] EOSINOPHILS 7 % 10/11/2023 6:05 AM [facility] BASOPHILS 1 % 10/11/2023 6:05 AM RAW MATERIAL HANDLER [facility] NEUTROPHIL ABSOLUTE 5.90 1.90 - 7.00 K/uL 10/11/2023 6:05 AM [facility] LYMPHOCYTE ABSOLUTE 1.60 0.70 - 4.50 K/uL 10/11/2023 6:05 AM [facility] MONOCYTE ABSOLUTE 0.60 0.10 - 1.30 K/uL 10/11/2023 6:05 AM [facility] EOSINOPHIL ABSOLUTE 0.60 0.00 - 0.70 K/uL 10/11/2023 6:05 AM RAW MATERIAL HANDLER [facility] BASOPHILS ABSOLUTE 0.10 0.00 - 0.20 K/uL 10/11/2023 6:05 AM [facility] Blood 10/11/2023 3:30 AM RAW MATERIAL HANDLER 10/11/2023 5:43 AM RAW MATERIAL HANDLER us Erik Chairez MD HEMATOLOGY ORDERABLES Final Resu lt [facility] CLIA# [id number] [address] [place] [address] * (ABNORMAL) RENAL FUNCTION PANEL (10/11/2023 3:30 AM RAW MATERIAL HANDLER) SODIUM 145 136 - 145 mmol/L 10/11/2023 6:28 AM [facility] POTASSIUM 4.0 3.4 - 5.1 mmol/L 10/11/2023 6:28 AM [facility] CHLORIDE 106 98 - 107 mmol/L 10/11/2023 6:28 AM [facility] CO2 26 22 - 29 mmol/L 10/11/2023 6:28 AM [facility] CALCIUM 9.3 8.6 - 10.4 mg/dL 10/11/2023 6:28 AM [facility] BUN 38(H) 6 - 20 mg/dL 10/11/2023 6:28 AM [facility] CREATININE 1.38(H) 0.67 - 1.17 mg/dL 10/11/2023 6:28 AM [facility] Comment:The GFR result is no t clinically significant on patients <18 or >70 years of age. GLUCOSE 85 74 - 99 mg/dL 10/11/2023 6:28 AM [facility] ALBUMIN 3.4(L) 3.5 - 5.2 g/dL 10/11/2023 6:28 AM [facility] PHOSPHORUS 3.9 2.5 - 4.5 mg/dL 10/11/2023 6:28 AM [facility] GFR 51 mL/min/1.7 3 sq meter 10/11/2023 6:28 AM [facility] Comment:eGFR calculated with 2020 CKD-EPI equation. Vegetarian diet, extremely high or low muscle mass, and may affect results. Cystatin C with Glomerular Filtration Rate is a suitable alternative for these patients. 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
--- OUTSIDE RECORDS SUMMARY | 2025-04-30 08:09 | XMS_ITS | Encounter Summary ---
Author Organization [facility] Address [address] [place] [address] Care Team Providers Care Astronomy Professor Name Role Phone Unavailable Primary Care Provider Unavailabl e Encounter Details Date Type Department Care Team (Late st Contact Info) Description 11/07/2023 Lab Requisition [facility] Laboratory Services [address] [place] [address] [place] [address] [place] [address] Social History Tobacco Use Types Packs/Day Years Used Date Smoking Tobacco: Never Assessed Sex and Gender Information Value Date Recorded Sex Assigned at Not on file Legal Sex Male 9:18 AM INSPECTOR ROUGH CASTINGS Gender Identity Not on file Sexual Orientation Not on file documented as of this encounter Plan of Treatment Not on file documented as of this encounter Procedures Procedure Name Priority Date/Time Associated Diagnosis Comments THEOPHYLLINE LEVEL Routine 11/07/2023 8: 40 AM INSPECTOR ROUGH CASTINGS documented in this encounter Results * (ABNORMAL) THEOPHYLLINE LEVEL (11/07/2023 8:40 AM INSPECTOR ROUGH CASTINGS) THEOPHYLLINE LEVEL <0.8(L) 10.0 - 20.0 ug/mL 11/07/2023 3:56 PM INSPECTOR ROUGH CASTINGS [facility] Comment:Verified by repeat a nalysis. TDM LAST DATE, TIME, AMT (TIFFANIE) Patient unable to state date. time or dose. 11/07/2023 3:56 PM INSPECTOR ROUGH CASTINGS [facility] LAST DOSE AMT, THEOPHYLLINE Other 11/07/2023 3:56 PM INSPECTOR ROUGH CASTINGS [facility] Comment:80 mg Blood 11/07/2023 8:40 AM INSPECTOR ROUGH CASTINGS 11/07/2023 10:34 AM INSPECTOR ROUGH CASTINGS Narrative [facility] - 11/07/2023 3:56 PM INSPECTOR ROUGH CASTINGS Theophylline Toxic Levels: 6 months - Adult = >20.0 ug/mL 0 - 6 months = >15.0 ug/mL Erik Chairez MD CHEMISTRY ORDERABLES Final Resul t [facility] CLIA# [id number] [address] [place] [address] [facility] CLIA# [id number] [address] [place] [address] documented in this encounter Visit Diagnoses Not on filedocumented in this encounter Additional Health Concerns Infection Onset Date Last Indicated Resolved Time CRE-CP Comment:10/09/23 Klebsiella pneumoniae, Sputum 10/09/2023 10/09/2023 05/28/2024 2:37 PM C DT 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
[2025-04-30 08:53] LABS: Hematocrit 38.6 % (42.0-52.0); Hemoglobin 12.3 g/dL (14.0-18.0); Immature Granulocyte Percent A 0.3 % (0-0.5); Lymphocytes Absolute Auto 0.52 K/mm3 (0.9-3.2); Mean Corpuscular HGB Conc 31.9 g/dl (32-36); Mean Corpuscular Hemoglobin 30.4 pg (26-34); Mean Corpuscular Volume 95.5 fl (80-100); Nucleated Red Blood Cells Absolute Auto 0.000 K/mm3 (0.0-0.012); Nucleated Red Blood Cells Perc 0.0 % (0.0-0.2); Platelet Count Result 209 k/mm3 (150-375); Red Blood Count 4.04 M/mm3 (4.6-6.20); White Blood Count 9.9 K/mm3 (4.5-10.0)
--- NOTE | 2025-04-30 09:08 | ED.GENADULT ---
HPI - General Adult General Chief complaint: Nausea/Vomiting/Diarrhea Stated complaint: N/V/D Time Seen by Provider: 04/30/25 08:10 History of Present Illness HPI narrative: Patient is an 85-year-old male who presents ER with nausea as well as diarrhea. Began earlier this morning. gave him some laxative last night. He had been having some abdominal cramping loose stools in the previous days so she had withheld his MiraLax. Stool is pasty white. No fevers or chills or sweats. No alleviating factors. History mainly provided by . Patient does have a colostomy that is draining appropriately. Related Data Home Medications ?Medication ?Instructions ?Recorded ?Confirmed ?Last Taken ?Type rivaroxaban 20 mg tablet (Xarelto) 20 mg PO QPM 07/30/23 04/22/25 04/17/25 History aspirin 81 mg chewable tablet 1 tablet PO DAILY 01/06/24 04/22/25 04/18/25 History docusate sodium 100 mg capsule 200 mg PO HS 03/25/24 04/22/25 04/17/25 History (Stool Softener) pyridoxine (vitamin B6) 100 mg 100 mg PO DAILY 03/25/24 04/22/25 04/18/25 History tablet levothyroxine 112 mcg tablet 112 mcg PO DAILY@0630 11/06/24 04/22/25 04/18/25 History losartan 25 mg tablet 25 mg PO DAILY 04/05/25 04/22/25 04/18/25 History Allergies Allergy/AdvReac Type Severity Reaction Status Date / Time [id number]-GmG Reductase Allergy Unknown Joint Pain Verified 04/22/25 10:19 Inhibitor (Dfuwuuv-Fyh-Cic & MUSCLE Reductase Inhibitor) WEAKNESS diphenhydramine (From AdvReac Agitated Verified 04/22/25 10:19 Benadryl) halobetasol AdvReac Rash Verified 04/22/25 10:19 quetiapine (From Seroquel) AdvReac Agitated Verified 04/22/25 10:19 Review of Systems Review of Systems: All systems reviewed & are unremarkable except as noted in HPI and below Constitutional: Constitutional: Reports no additional constitutional complaints Cardiovascular: Cardiovascular: Reports no additional cardiovascular complaints Respiratory: Respiratory: Reports no additional respiratory complaints Gastrointestinal: Gastrointestinal: Reports no additional gastrointestinal complaints [facility] Past Medical History Medical History Diastolic heart failure History of coronary artery disease Ventral hernia Positive occult stool blood test Diarrhea Grade II diastolic dysfunction History of open sigmoidectomy Vitamin D deficiency, unspecified Paroxysmal atrial fibrillation Brain bleed Prostate CA Basal cell carcinoma Hepatitis B Prediabetes Hypothyroid Constipation GERD (gastroesophageal reflux disease) Hyperlipidemia Hypertension CAD (coronary artery disease) Myocardial infarct Seizures Surgical History Surgical History S/P hernia repair 08/02/2023 had open repair of right inguinal hernia due to 70% of the patient's small bowel contents being within the hernia, complicated by postoperative abscess requiring percutaneous drain, 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 The patient had postoperative shock and remained intubated for a prolonged period requiring tracheostomy and transfer to LTAC 10/09/2023 S/P percutaneous endoscopic gastrostomy (PEG) tube placement (09/25/23) With subsequent removal History of tracheostomy 09/13/2023 with subsequent removal History of colostomy Status post Willy procedure 09/04/23 Extensive (2 1/2 hrs) adhesiolysis, sigmoidectomy with end descending colostomy and Willy procedure Hx of local excision of skin lesion H/O arthroscopy lt knee H/O prostatectomy Hx of colonoscopy 2012 - Dr. Yen Hx of CABG 11/2009 - triple bypass surgery at [facility] [place] Family History Family History Father Malignant neoplasm of prostate Sibling Ovarian cancer Mother , epilepsy No problems noted. Sibling No problems noted. Social History Social History Social History: Patient lives with his Cherie. He has a distant history of smoking a 12 pack per year history. He used to rarely drinks alcohol and only in moderation. Code status: Full code Surrogate decision maker: Sid () Smoking packs per day: 2 Smoking cigarettes per day: 40.0 Years smoked: 12 Smoking pack-years: 24.00 Smoking status: Former smoker Tobacco type: cigarettes Second hand tobacco smoke exposure: No Smoking end date: 09/23/70 Alcohol intake: never Alcohol use details: RARELY - 1/2 CASE BEER/YR Substance use: never Substance use type: does not use Do You Feel Safe in your Home?: Yes Lack of Transportation: No Lack of Food: Never True Current Housing: I Have Housing Concerned About Future Housing: No Difficulty Paying Gas/Electric Bills: No Difficulty Paying for Meds: No Currently Unemployed: No Education: High School Diploma/GED Difficulty w/ Childcare or Family Care: No Living arrangements: with family Occupation/Education: retired 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 HEAD: Normocephalic, atraumatic. ENT: Mucous membranes moist. CHEST: Clear to auscultation. No respiratory distress. HEART: Regular rate and rhythm. Normal peripheral pulses. ABDOMEN: Soft, nontender, nondistended. EXTREMITIES: Normal range of motion. No edema. SKIN: Warm, dry, no rash. NEURO: Alert and oriented x3. PSYCH: Normal mood and affect. Course Course Emergency Course: Mildly dehydrated. Received IV fluid. Lab work unremarkable. Abdomen is soft nontender. Patient tolerating p.o.. Discharge. Vital Signs Vital signs: Vital Signs Temperature 98.6 F 04/30/25 08:29 Pulse Rate 83 04/30/25 08:29 Respiratory Rate 16 04/30/25 08:29 Blood Pressure 124/84 04/30/25 08:29 Pulse Oximetry 100 04/30/25 08:29 Oxygen Delivery Room Air 04/30/25 08:29 Temperature 97.7 F 04/30/25 10:32 Pulse Rate 74 04/30/25 11:50 Respiratory Rate 19 04/30/25 11:50 Blood Pressure 111/70 04/30/25 11:50 Pulse Oximetry 98 04/30/25 11:50 Oxygen Delivery Room Air 04/30/25 08:29 Medical Decision Making Vital Signs Vital Signs: Vital Signs Temperature 98.6 F 04/30/25 08:29 Pulse Rate 83 04/30/25 08:29 Respiratory Rate 16 04/30/25 08:29 Blood Pressure 124/84 04/30/25 08:29 Pulse Oximetry 100 04/30/25 08:29 Oxygen Delivery Room Air 04/30/25 08:29 Temperature 97.7 F 04/30/25 10:32 Pulse Rate 74 04/30/25 11:50 Respiratory Rate 19 04/30/25 11:50 Blood Pressure 111/70 04/30/25 11:50 Pulse Oximetry 98 04/30/25 11:50 Oxygen Delivery Room Air 04/30/25 08:29 Lab Data 04/30/25 08:47 04/30/25 08:47 Labs: Lab Results 04/30/25 Range/Units 08:47 WBC 9.9 (4.5-10.0) K/mm3 RBC 4.04 L (4.6-6.20) M/mm3 Hgb 12.3 L (14.0-18.0) g/dL Hct 38.6 L (42.0-52.0) % MCV 95.5 (80-100) fl MCH 30.4 (26-34) pg MCHC 31.9 L (32-36) g/dl RDW 13.0 (11.5-14.5) % Plt Count 209 (150-375) k/mm3 MPV 10.5 H (7.4-10.4) fl Immature Gran % (Auto) 0.3 (0-0.5) % Neut % (Auto) 86.0 H (45.5-73.1) % Lymph % (Auto) 5.2 L (18.3-44.2) % Pleasants % (Auto) 6.5 (2.6-8.5) % Eos % (Auto) 1.8 (0-4.4) % Baso % (Auto) 0.2 (0.2-1.2) % Lymph # (Auto) 0.52 L (0.9-3.2) K/mm3 Pleasants # (Auto) 0.6 (0.1-0.6) K/mm3 Eos # (Auto) 0.2 (0-0.3) K/mm3 Baso # (Auto) 0.0 (0.0-0.1) K/mm3 Abs Immat Gran (auto) 0.03 (0.00-0.031) K/mm3 Absolute Neuts (auto) 8.5 H (1.3-6.7) K/mm3 Absolute Nucleated RBC 0.000 (0.0-0.012) K/mm3 Nucleated RBC % 0.0 (0.0-0.2) % Sodium 138 (137-145) mmol/L Potassium 4.2 (3.4-5.0) mmol/L Chloride 100 (98-107) mmol/L Carbon Dioxide 26 (22-30) mmol/L Anion Gap 12 (4-12) mmol/L BUN 30 H (9-20) mg/dL Creatinine 1.69 H (0.7-1.3) mg/dL Estim Creat Clear Calc 33 ml/min Estimated GFR 39 L (59 - ) Glucose 130 H (65-110) mg/dL Calcium 9.4 (8.4-10.2) mg/dL Total Bilirubin 0.6 (0.2-1.3) mg/dL AST 33 (17-59) U/L ALT 19 (6-50) U/L Alkaline Phosphatase 95 (38-126) U/L Total Protein 7.6 (6.3-8.2) g/dL Albumin 4.2 (3.5-5.1) g/dL Lipase 68 (23-300) U/L Discharge Plan Discharge Clinical Impression: Diarrhea Patient Disposition: Home Condition: Stable Instructions: Acute Diarrhea (ED) Additional Instructions: Please drink plenty of fluids at home. Return to the emergency department if you develop high fevers, have persistent severe abdominal pain, or have bloody stools or vomit, as these could be signs of a more serious medical emergency. Return to the emergency department if you are unable to keep down liquids because of severe nausea/vomiting. Patient Language: Hebrew Prescriptions: No Action losartan 25 mg tablet 25 mg PO DAILY aspirin 81 mg tablet,chewable 1 tablet PO DAILY docusate sodium [Stool Softener] 100 mg capsule 200 mg PO HS pyridoxine (vitamin B6) 100 mg tablet 100 mg PO DAILY hydrochlorothiazide 12.5 mg capsule 12.5 mg PO DAILY Qty: 90 0RF Xarelto 20 mg Tablet 20 mg PO QPM Patient Comments: current GI bleed (04/18) Rx Instructions: must administer with evening meal pantoprazole 40 mg Tablet,Delayed Release (Dr/Ec) 40 mg PO QAM Qty: 30 0RF levothyroxine 112 mcg tablet 112 mcg PO DAILY@0630 nystatin 100,000 unit/gram powder 1 applic topical TID Qty: 60 1RF Patient Comments: apply to groin famotidine 20 mg tablet 20 mg PO DAILY Qty: 90 1RF Follow-up/Referrals: Demond Stark MD [Primary Care Provider] - 1 Week
[2025-04-30 09:19] LABS: Alanine Aminotransferase 19 U/L (6-50); Albumin Level 4.2 g/dL (3.5-5.1); Alkaline Phosphatase 95 U/L (38-126); Anion Gap 12 mmol/L (4-12); Aspartate Amino Transferase 33 U/L (17-59); Bilirubin,Total 0.6 mg/dL (0.2-1.3); Blood Urea Nitrogen 30 mg/dL (9-20); Calcium 9.4 mg/dL (8.4-10.2); Carbon Dioxide 26 mmol/L (22-30); Chloride 100 mmol/L (98-107); Estimated CRCL calculation 33 ml/min; Estimated Glomerular Filt Rate 39; Glucose 130 mg/dL (65-110); Lipase 68 U/L (23-300); Potassium 4.2 mmol/L (3.4-5.0); Sodium 138 mmol/L (137-145); Total Protein 7.6 g/dL (6.3-8.2)
[2025-04-30] MEDS: SODIUM CHLORIDE 0.9% IV 1,000 ML 999 ML IV CONT (09:42)
[2025-04-30] MEDS: ONDANSETRON INJ 4 MG/2 ML VIAL IV PUSH (09:42)
--- OUTSIDE RECORDS SUMMARY | 2025-04-30 09:51 | XMS_ITS | Encounter Summary ---
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
--- OUTSIDE RECORDS SUMMARY | 2025-04-30 09:51 | XMS_ITS | Encounter Summary ---
Author Organization [facility] Address 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 Gender Identity Not on file Sexual Orientation Not on file documented as of this encounter Plan of Treatment Not on file documented as of this encounter Procedures Procedure Name Priority Date/Time Associated Diagnosis Comments CBC WITH DIFFERENTIAL Routine 10/14/2023 2:35 AM INSPECTOR CANNED FOOD RECONDITIONING TRIGLYCERIDE Routine 10/14/2023 2:35 AM INSPECTOR CANNED FOOD RECONDITIONING PHOSPHORUS Routine 10/14/2023 2:35 AM INSPECTOR CANNED FOOD RECONDITIONING MAGNESIUM LEVEL Routine 10/14/2023 2:35 AM INSPECTOR CANNED FOOD RECONDITIONING COMPREHENSIVE METABOLIC PANEL Routine 10/14/2023 2:35 AM INSPECTOR CANNED FOOD RECONDITIONING documented in this encounter Results * (ABNORMAL) TRIGLYCERIDE (10/14/2023 2:35 AM INSPECTOR CANNED FOOD RECONDITIONING) TRIGLYCERIDE 161(H) <150 mg/dL 10/14/2023 8:26 AM INSPECTOR CANNED FOOD RECONDITIONING [facility] LABORATORY SERVICES [facility] Blood Collection / Unknown 10/14/2023 2:35 AM INSPECTOR CANNED FOOD RECONDITIONING 10/14/2023 7:22 AM INSPECTOR CANNED FOOD RECONDITIONING Narrative [facility] - 10/14/2023 8:26 AM INSPECTOR CANNED FOOD RECONDITIONING TRIGLYCERIDES mg/dL Normal < 150 Borderline High 150 - 199 High 200 - 499 Very High >= 500 Based on AHA/NCEP Guidelines. us Erik Chairez MD CHEMISTRY ORDERABLES Final Resul t Performing Organization Address City/[facility]/ZIP Co de Phone Number [facility] CLIA# [id number] [place] [address] * PHOSPHORUS (10/14/2023 2:35 AM INSPECTOR CANNED FOOD RECONDITIONING) PHOSPHORUS 3.4 2.5 - 4.5 mg/dL 10/14/2023 8:26 AM INSPECTOR CANNED FOOD RECONDITIONING [facility] Blood Collection / Unknown 10/14/2023 2:35 AM INSPECTOR CANNED FOOD RECONDITIONING 10/14/2023 7:22 AM INSPECTOR CANNED FOOD RECONDITIONING us Erik Chairez MD CHEMISTRY ORDERABLES Final Resul t Performing Organization Address City/[facility] Co de Phone Number [facility] [id number] [address] [place] [address] * MAGNESIUM LEVEL (10/14/2023 2:35 AM INSPECTOR CANNED FOOD RECONDITIONING) MAGNESIUM 2.5 1.6 - 2.6 mg/dL 10/14/2023 8:26 AM INSPECTOR CANNED FOOD RECONDITIONING [facility] [employer] [facility] Blood Collection / Unknown 10/14/2023 2:35 AM INSPECTOR CANNED FOOD RECONDITIONING 10/14/2023 7:22 AM INSPECTOR CANNED FOOD RECONDITIONING us Erik Chairez MD CHEMISTRY ORDERABLES Final Resul t Performing Organization Address City/[facility]/ZIP Co de Phone Number [facility] [id number] [address] [place] [address] * (ABNORMAL) CBC WITH DIFFERENTIAL (10/14/2023 2:35 AM INSPECTOR CANNED FOOD RECONDITIONING) [facility] WBC 9.2 4.5 - 10.5 K/uL 10/14/2023 8:02 AM [facility] LABORATORY [facility] RBC 3.58(L) 4.50 - 5.40 M/uL 10/14/2023 8:02 AM [facility] HEMOGLOBIN 11.0(L) 13.6 - 16.5 g/dL 10/14/2023 8:02 AM [facility] LABORATORY [facility] HEMATOCRIT 33.5(L) 40.0 - 48.0 % 10/14/2023 8:02 AM [facility] LABORATORY [facility] MCV 93.6 82.0 - 99.0 fL 10/14/2023 8:02 AM [facility] LABORATORY [facility] MCH 30.6 27.8 - 34.5 pg 10/14/2023 8:02 AM [facility] [employer] [facility] MCHC 32.7 32.5 - 35.5 g/dL 10/14/2023 8:02 AM [facility] [employer] [facility] RDW 17.7(H) 11.5 - 14.5 % 10/14/2023 8:02 AM [facility] LABORATORY [facility] PLATELETS 214 160 - 420 K/uL 10/14/2023 8:02 AM [facility] [employer] [facility] MPV 9.2 8.7 - 12.7 fL 10/14/2023 8:02 AM [facility] [employer] [facility] NEUTROPHILS 58 % 10/14/2023 8:02 AM [facility] LABORATORY [facility] LYMPHOCYTES 24 % 10/14/2023 8:02 AM [facility] LABORATORY [facility] MONOCYTES 8 % 10/14/2023 8:02 AM INSPECTOR CANNED FOOD RECONDITIONING [facility] LABORATORY [facility] EOSINOPHILS 9 % 10/14/2023 8:02 AM [facility] LABORATORY [facility] BASOPHILS 0 % 10/14/2023 8:02 AM [facility] LABORATORY [facility] NEUTROPHIL ABSOLUTE 5.40 1.90 - 7.00 K/uL 10/14/2023 8:02 AM [facility] [employer] [facility] LYMPHOCYTE ABSOLUTE 2.20 0.70 - 4.50 K/uL 10/14/2023 8:02 AM [facility] LABORATORY [facility] MONOCYTE ABSOLUTE 0.70 0.10 - 1.30 K/uL 10/14/2023 8:02 AM [facility] EOSINOPHIL ABSOLUTE 0.90(H) 0.00 - 0.70 K/uL 10/14/2023 8:02 AM [facility] LABORATORY [facility] BASOPHILS ABSOLUTE 0.00 0.00 - 0.20 K/uL 10/14/2023 8:02 AM [facility] Blood Collection / Unknown 10/14/2023 2:35 AM INSPECTOR CANNED FOOD RECONDITIONING 10/14/2023 7:22 AM INSPECTOR CANNED FOOD RECONDITIONING Erik Chairez MD HEMATOLOGY ORDERABLES Final Resu lt [facility] CLIA# [id number] [place] [address] * (ABNORMAL) COMPREHENSIVE METABOLIC PANEL (10/14/2023 2:35 AM INSPECTOR CANNED FOOD RECONDITIONING) SODIUM 135(L) 136 - 145 mmol/L 10/14/2023 8:26 AM [facility] POTASSIUM 4.0 3.4 - 5.1 mmol/L 10/14/2023 8:26 AM [facility] CHLORIDE 97(L) 98 - 107 mmol/L 10/14/2023 8:26 AM [facility] CO2 24 22 - 29 mmol/L 10/14/2023 8:26 AM [facility] CALCIUM 9.5 8.6 - 10.4 mg/dL 10/14/2023 8:26 AM [facility] BUN 36(H) 6 - 20 mg/dL 10/14/2023 8:26 AM [facility] CREATININE 1.18(H) 0.67 - 1.17 mg/dL 10/14/2023 8:26 AM [facility] [employer] [facility] Comment:The GFR result is no t clinically significant on patients <18 or >70 years of age. GLUCOSE 84 74 - 99 mg/dL 10/14/2023 8:26 AM [facility] TOTAL PROTEIN 7.4 6.3 - 8.7 g/dL 10/14/2023 8:26 AM [facility] ALBUMIN 3.6 3.5 - 5.2 g/dL 10/14/2023 8:26 AM [facility] BILIRUBIN TOTAL 0.6 0.2 - 1.1 mg/dL 10/14/2023 8:26 AM [facility] ALKALINE PHOSPHATASE 99 40 - 150 U/L 10/14/2023 8:26 AM [facility] AST 22 0 - 41 U/L 10/14/2023 8:26 AM [facility] ALT 16 0 - 41 U/L 10/14/2023 8:26 AM [facility] GFR >60 mL/min/1.7 3 sq meter 10/14/2023 8:26 AM [facility] Comment:eGFR calculated with 2020 CKD-EPI equation. Vegetarian diet, extremely high or low muscle mass, and may affect results. Cystatin C with Glomerular Filtration Rate is a suitable alternative for these patients. ANION GAP 14 8 - 16 mmol/L 10/14/2023 8:26 AM [facility] Blood Collection / Unknown 10/14/2023 2:35 AM INSPECTOR CANNED FOOD RECONDITIONING 10/14/2023 7:22 AM INSPECTOR CANNED FOOD RECONDITIONING us Erik Chairez MD CHEMISTRY ORDERABLES Final Resul t 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
--- OUTSIDE RECORDS SUMMARY | 2025-04-30 09:51 | XMS_ITS | Clinical Summary ---
Author Organization [facility] [employer] Address [address] [place] [address] Care Team Providers Care Director Experimental Medicine Name Role Phone Demond Stark MD Primary Care Provider [phone] Source Comments [facility] [employer],non-owned Affiliates and Associated Physician Practices is amultiple site organization consisting of ambulatory clinics and hospital sitesin [place], [place], [place] and [place]. This disclosure is being madepursuant to the Care Everywhere program and may not contain all information available regarding this patient. Last updated 18.[facility] [employer] Allergies Active Allergy Reactions Criticality Noted Date [...] [place] artery 12/20 Overview (01/01/2025): IRENE JULIAN GROSSMAN VSSL 2010: Non STEMI and CABG x3 (HOBSON to the LAD, sequential RA to OM and D1) History of coronary artery bypass surgery 2009 Overview (01/01/2025): AORTOCORONARY BYPASS Encounters Date Type Department Care Team Description 04/29/2025 1:00 PM CDT Office Visit [facility] - Neurology [address] [place] [place] [address] Callie Mendoza DO Settu, Venus, LINING CLOSER-MANAGER PRODUCTION Chronic subdural hematoma (HCC) (Primary Dx) 04/29/2025 9:13 AM CDT - 04/29/2025 11:59 PM CDT Hospital Encounter [facility] [address] [place] [address] Callie Mendoza DO Discharge Disposition: Home or Self Care 04/29/2025 Travel 02/05/2025 8:30 AM CDT Office Visit [facility] - GI [address] [place] [place] [address] Callie Mendoza DO Zenker's diverticulum (Primary Dx); [...] and heating? Not hard at all 12/25/2024 [facility] Occupat ional Health - Occupational Stress [...] time in the past 12 m [facility], were you homeless or living in a jail (including now)? 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 Gender Identity Not on file Sexual [...] Visit [facility] - GI [address] [place] [place] [phone] Callie Mendoza DO [address] [facility] [address] F[address] [place] [address] Health Maintenance Due Date Last [...] supplements as ordered Collaborate with the clinical hospice community liaison Oral care Use soft toothbrushes Keep hydrated [...] ult from Last 3 Months Insurance MEDICARE [facility] MEDIC[facility] Advance Directives * Full Code (Latest Code Status on File) Date Activated Date Inactivated Comments 12/22/2024 4:39 PM 12/25/2024 7:01 PM Care Teams Director Experimental Medicine Relationship Specialty Start Date End Date Demond Stark MD [address] [place] [phone] PCP - General 10/03/15
--- OUTSIDE RECORDS SUMMARY | 2025-04-30 09:51 | XMS_ITS | Encounter Summary ---
Author Organization [facility] Address 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 Gender Identity Not on file Sexual Orientation Not on file documented as of this encounter Plan of Treatment Not on file documented as of this encounter Procedures Procedure Name Priority Date/Time Associated Diagnosis Comments MAGNESIUM LEVEL Routine 10/12/2023 4:00 AM FILLING HAULER RENAL FUNCTION PANEL Routine 10/12/2023 4:00 AM FILLING HAULER documented in this encounter Results * MAGNESIUM LEVEL (10/12/2023 4:00 AM FILLING HAULER) MAGNESIUM 2.3 1.6 - 2.6 mg/dL 10/12/2023 6:02 AM FILLING HAULER [facility] [employer] [facility] Blood Collection / Unknown 10/12/2023 4:00 AM FILLING HAULER 10/12/2023 5:07 AM FILLING HAULER us Erik Chairez MD CHEMISTRY ORDERABLES Final Resul t [id number] [address] [place] [address] * (ABNORMAL) RENAL FUNCTION PANEL (10/12/2023 4:00 AM FILLING HAULER) SODIUM 139 136 - 145 mmol/L 10/12/2023 6:02 AM [facility] POTASSIUM 4.2 3.4 - 5.1 mmol/L 10/12/2023 6:02 AM [facility] CHLORIDE 102 98 - 107 mmol/L 10/12/2023 6:02 AM [facility] CO2 24 22 - 29 mmol/L 10/12/2023 6:02 AM [facility] CALCIUM 9.5 8.6 - 10.4 mg/dL 10/12/2023 6:02 AM [facility] BUN 43(H) 6 - 20 mg/dL 10/12/2023 6:02 AM [facility] CREATININE 1.20(H) 0.67 - 1.17 mg/dL 10/12/2023 6:02 AM [facility] Comment:The GFR result is no t clinically significant on patients <18 or >70 years of age. GLUCOSE 94 74 - 99 mg/dL 10/12/2023 6:02 AM [facility] ALBUMIN 3.4(L) 3.5 - 5.2 g/dL 10/12/2023 6:02 AM [facility] PHOSPHORUS 4.2 2.5 - 4.5 mg/dL 10/12/2023 6:02 AM [facility] GFR 60 mL/min/1.7 3 sq meter 10/12/2023 6:02 AM [facility] Comment:eGFR calculated with 2020 CKD-EPI equation. Vegetarian diet, extremely high or low muscle mass, and may affect results. Cystatin C with Glomerular Filtration Rate is a suitable alternative for these patients. ANION GAP 13 8 - 16 mmol/L 10/12/2023 6:02 AM [facility] Blood Collection / Unknown 10/12/2023 4:00 AM FILLING HAULER 10/12/2023 5:07 AM FILLING HAULER Erik Chairez MD CHEMISTRY ORDERABLES Final Resul t [facility] LABORATORY SERVICES [facility] CLIA# [id number] [address] [place] [address] documented in this encounter Visit Diagnoses Not on filedocumented in this encounter Additional Health Concerns Infection Onset Date Last Indicated Resolved Time CRE-CP Comment:10/09/23 Klebsiella pneumoniae, Sputum 10/09/2023 10/09/2023 05/28/2024 2:37 PM C DT 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
--- OUTSIDE RECORDS SUMMARY | 2025-04-30 09:51 | XMS_ITS | Clinical Summary ---
Author Organization [facility] Medical Office Building B Address [address] [place] [address] Care Team Providers Care Radio Reporter Name Role Phone Demond Stark MD Primary Care Provider [phone] Allergies Active Allergy Reactions Criticality Noted Date Comments Diphenhydramine Hallucinations Medium 11/27/2023 Was not able to sleep and made him more anxious Lisinopril Cough Low Reaction: Cough, Pravastatin Muscle pain Medium Reaction: Muscular Pain, Quetiapine Other (See comments) Low 06/05/2024 Hallucinations, insomnia Simvastatin Muscle pain Medium Reaction: Muscular Pain, Tqiscjq-Exl-Ang Reductase Inhibitors Muscle pain,Other (See comments) Medium 10/03/2015 Pt reports leg weakness/heavine ss when taking zocor. Medications levothyroxine (SYNTHROID) 112 mcg tablet Take 1 tablet (112 mcg total) by mouth cardboard cutter before breakfast Active aspirin 81 mg tablet [...] (COZAAR) 50 mg tabletIndications:Co ronary arteriosclerosis in [place] artery,Cardiomyopath y, unspecified type (HCC) Take 1 tablet (50 mg total) by mouth daily 90 tablet 3 03/16/20 25 026 Active Active Problems Problem Noted Date Diagnosed Date Cardiomyopathy 03/16/2025 Nonrheumatic aortic (valve) stenosis 03/16/2025 Dysfunction of right eustachian tube 08/31/2024 Assessment & Plan (10/05/2024 10:54 AM CERT OCCUPATIONAL THERAPY ASST): Avoid ear cleaning techniques Avoid water to ears Follow up in 9 months for right ear tube check, earlier with ear drainage Assessment & Plan (08/31/2024 11:40 AM CERT OCCUPATIONAL THERAPY ASST): Right myringotomy with T-tube placement Risks and [...] 07/09/2024 Assessment & Plan (08/31/2024 11:39 AM CERT OCCUPATIONAL THERAPY ASST): Right myringotomy with T-tube placement Risks and [...] 08/07/2017 Assessment & Plan (08/07/2017 6:01 PM CERT OCCUPATIONAL THERAPY ASST): Has had elevated LFTs and a fatty liver. Bradycardia 08/07/2017 Assessment & Plan (08/07/2017 5:58 PM CERT OCCUPATIONAL THERAPY ASST): Asymptomatic bradycardia, on low-dose metoprolol which may eventually need to be reduced or discontinued. Traumatic subdural hematoma of neuraxis 10/15/19 17 Overview (12/28/2016): Traumatic subdural hematoma without loss of consciousness, sequela Statin intolerance 10/15/2016 Overview (12/28/2016): Statin intolerance Essential hypertension 07/20/2013 Overview (12/28/2016): Hypertension Assessment & Plan (08/07/2017 5:57 PM CERT OCCUPATIONAL THERAPY ASST): Hypertension is not under good control; reviewing [...] HYPERLIPIDEMIA Assessment & Plan (08/07/2017 6:03 PM CERT OCCUPATIONAL THERAPY ASST): Has refued further attempts at statin therapy. History of coronary artery bypass surgery 2009 Overview (12/26/2016): AORTOCORONARY BYPASS Coronary arteriosclerosis in [place] artery 12/20 Overview (08/07/2017): CRNRY ATHRSCL NATVE VSSL 2009: Non STEMI and CABG x3 (HOBSON to the LAD, sequential RA to OM and D1) Assessment & Plan (08/07/2017 6:00 PM CERT OCCUPATIONAL THERAPY ASST): 2009: Non STEMI and CABG x3 (HOBSON [...] 03/04/2018 Assessment & Plan (08/07/2017 5:58 PM CERT OCCUPATIONAL THERAPY ASST): Patient is going to have knee surgery soon and needs preoperative clearance. Coronary artery disease appears stable. Low risk for cardiac event with proposed surgery. 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/2009 03/25/2023 Overview (12/28/2016): SUBENDO INFARCT, SUBSEQ Encounters Date Type Department Care Team Description 03/16/2025 2:30 PM CDT Office Visit [facility] Medical Group Cardiology [address] [place] [phone] Mando Luna MD Persistent atrial fibrillation (HCC) (Primary Dx); Coronary arteriosclerosis in [place] artery; Chronic anticoagulation; Nonrheumatic aortic (valve) stenosis; Cardiomyopathy, unspecified type (HCC) 03/16/2025 Orders Only [facility] Medical [facility] Cardiology [address] [place] [phone] ProviderTaylor MD 03/01/2025 Telephone [facility] Medical [facility] Cardiology [address] [place] [phone] Mando Luna MD from Last 3 Months [...] Ovarian cancer Sister 1 Diabetes Sister 2 Geean Relation Name Status Comments Brother Anil Father [...] on file Legal Sex Male 8:49 AM CERT OCCUPATIONAL THERAPY ASST Gender Identity Not on file Sexual Orientation Not on file Obstetrics History Last Filed Vital Signs Vital Sign Reading Time Taken Comments Blood Pressure 138/70 03/16/2025 2:40 PM CDT Pulse 88 03/16/2025 2:40 PM CDT Temperature 36.3 C (97.4 F) 09/22/2024 1:04 PM CERT OCCUPATIONAL THERAPY ASST Respiratory Rate 18 09/22/2024 1:04 PM CERT OCCUPATIONAL THERAPY ASST Oxygen Saturation 97% 03/16/2025 2:40 PM CDT [...] 09/01/2025 09/01/2024 Medical Devices Implanted Type Area Chalk Molding Machine Operator Device Identifier Shelf Expiration Date Model / Serial / Lot [employer] 1.32mm 4.8mm Modify Ear T Tube Ventilation Ultrasil Sterile Blue [id number] - [id number] Implanted:Qty: 1 on 09/22/2024 by Laura Oakes DO at [facility] Right: Ear [employer] 07/13/2034 [id number] / / [id number] Insurance MEDICARE [facility] Address: [id number] [place] [address] MEDICARE [facility] MEDICARE SUPPLEMENT Care Teams Radio Reporter Relationship Specialty Start Date End Date Demond Stark MD PCP - General 07/23/11
--- OUTSIDE RECORDS SUMMARY | 2025-04-30 09:51 | XMS_ITS | Encounter Summary ---
Author Organization [facility] Address [facility] [facility] [place] [address] Care Team Providers Care Blender Helper Name Role Phone Demond Stark MD Primary Care Provider [phone] Encounter Details Date Type Department Care Team (Late Contact Info) Description 06/28/2023 Lab Requisition [facility] - DermPath Lab [address] [place] [phone] Jaxon Anaya MD [address] [place], [place] [id number] Social History Tobacco Use Types Packs/Day Years Used Date Smoking Tobacco: Former Cigarettes Q uit: 09/23/1969 Smokeless Tobacco: Never Alcohol Use Standard Drinks/Week Comments Yes 0 (1 standard drink = 0.6 oz pur e alcohol) Sex and Gender Information Value Date Recorded Sex Assigned at Not on file Legal Sex Male 5:43 PM CLEANING ASSOCIATE Gender Identity Not on file Sexual Orientation Not on file documented as of this encounter Plan of Treatment Upcoming Encounters Date Type Department Care Team (Late Contact Info) Description 02/04/2026 9:00 AM CDT Office Visit [facility] - GI [address] [place] [phone] Callie Mendoza DO [address] [facility] [address] [place] [phone] documented as of this encounter Procedures Procedure Name Priority Date/Time Associated Diagnosis Comments DERMATOPATHOLOGY Routine 06/26/2023 12:0 0 AM CDT documented in this encounter Results * DERMATOPATHOLOGY (06/26/2023 12:00 AM CDT) Case Report Dermatopathology Report Case: [id number] Authorizing Provider: Jaxon Anaya MD Collected: 06/26/2023 12:00 AM Ordering Location: [facility] DermPath Lab Received: 06/28/2023 09:48 [...] back.The specimen consists of an ellipse measuring 41p30h48 mm and is oriented with the suture/notch [...] characteristic determined by the Dermatopathology Laboratory at [facility], directed by Dr. Georgina Young. These tests need not be, and therefore are not, approved by the [place] Food and Drug Administration. The tests are used for clinical purposes. Billing Codes Specimen Charges Stain Charges 46448 1 3 4:58 PM CDT DERMATOPATHOLOGY LABORATORY Embedded Images 3 4:58 PM CDT DERMATOPATHOLOGY LABORATORY Pathology/Cytolog y TISSUE SPECIMEN FROM SKIN / Unknown 06/26/2023 06/28/2023 9:48 AM CDT Jaxon Anaya MD LAB - PATHOLOGY/CYTOLOGY ORD ERABLES Final Result DERMATOPATHOLOGY LABORATORY [facility] - Department of Dermatology [facility] Medicine [address] [place] [address], [address] [phone] documented in this encounter Visit Diagnoses Not on filedocumented in this encounter Care Teams Blender Helper Relationship Specialty Start Date End Date Demond Stark MD [address] [place] [address] PCP - General 10/03/15 documented as of this encounter
--- OUTSIDE RECORDS SUMMARY | 2025-04-30 09:51 | XMS_ITS | Encounter Summary ---
Author Organization [facility] Medical Group Address [address] [facility] [address] [place] [address] Care Team Providers Care Development Representative Name Role Phone Demond Stark MD Primary Care Provider [phone] Encounter Details Date Type Department Care Team (Late st Contact Info) Description 10/16/2016 Orders Only [facility] ProviderTaylor MD [address] [place], [place] [id number] Social History Tobacco Use Types Packs/Day Years Used Date Smoking Tobacco: Former Cigarettes Q uit: 09/23/1969 Alcohol Use Standard Drinks/Week Comments Yes 0 (1 standard drink = 0.6 oz pur e alcohol) Sex and Gender Information Value Date Recorded Sex Assigned at Not on file Legal Sex Male 8:49 AM GROUND MIXER Gender Identity Not on file Sexual [...] on filedocumented in this encounter Care Teams Development Representative Relationship Specialty Start Date End Date Demond Stark MD PCP - General 07/23/11 documented as of this encounter
--- OUTSIDE RECORDS SUMMARY | 2025-04-30 09:51 | XMS_ITS | Encounter Summary ---
Author Organization [facility] Address [address] [place] [address] Care Team Providers Care Lead Installer Name Role Phone Unavailable Primary Care Provider Unavailabl e Encounter Details Date Type Department Care Team (Late st Contact Info) Description 10/20/2023 Lab Requisition [facility] Laboratory Services [address] [place] [address] [place] [address] [place] [address] Social History Tobacco Use Types Packs/Day Years Used Date Smoking Tobacco: Never Assessed Sex and Gender Information Value Date Recorded Sex Assigned at Not on file Legal Sex Male 9:18 AM CHIEF GUARD Gender Identity Not on file Sexual Orientation Not on file documented as of this encounter Plan of Treatment Not on file documented as of this encounter Procedures Procedure Name Priority Date/Time Associated Diagnosis Comments CBC WITH DIFFERENTIAL Routine 10/20/2023 2:20 AM CHIEF GUARD BASIC METABOLIC PANEL Routine 10/20/2023 2:20 AM CHIEF GUARD documented in this encounter Results * (ABNORMAL) CBC WITH DIFFERENTIAL (10/20/2023 2:20 AM CHIEF GUARD) WBC 8.3 4.5 - 10.5 K/uL 10/20/2023 5:25 AM CHIEF GUARD [facility] LABORATORY SERVICES - [facility] RBC 3.82(L) 4.50 - 5.40 M/uL 10/20/2023 5:25 AM CHIEF GUARD [facility] LABOR[facility]ORY [facility] - [facility] HEMOGLOBIN 11.2(L) 13.6 - 16.5 g/dL 10/20/2023 5:25 AM CHIEF GUARD [facility] LABORATORY SERVICES - [facility] HEMATOCRIT 35.0(L) 40.0 - 48.0 % 10/20/2023 5:25 AM CHIEF GUARD [facility] LABORATORY SERVICES [facility] MCV 91.6 82.0 - 99.0 fL 10/20/2023 5:25 AM CHIEF GUARD [facility] LABORATORY SERVICES - [facility] MCH 29.4 27.8 - 34.5 pg 10/20/2023 5:25 AM CHIEF GUARD [facility] LABORATORY SERVICES [facility] MCHC 32.1(L) 32.5 - 35.5 g/dL 10/20/2023 5:25 AM CHIEF GUARD [facility] LABORATORY SERVICES - [facility] RDW 17.4(H) 11.5 - 14.5 % 10/20/2023 5:25 AM CHIEF GUARD [facility] LABORATORY SERVICES - [facility] PLATELETS 255 160 - 420 K/uL 10/20/2023 5:25 AM CHIEF GUARD [facility] LABORATORY SERVICES [facility] MPV 9.4 8.7 - 12.7 fL 10/20/2023 5:25 AM CHIEF GUARD [facility] LABORATORY SERVICES - [facility] NEUTROPHILS 60 % 10/20/2023 5:25 AM CHIEF GUARD [facility] LABORATORY SERVICES - [facility] LYMPHOCYTES 23 % 10/20/2023 5:25 AM CHIEF GUARD [employer] LABORATORY SERVICES [facility] MONOCYTES 6 % 10/20/2023 5:25 AM CHIEF GUARD [facility] LABORATORY SERVICES [facility] EOSINOPHILS 11 % 10/20/2023 5:25 AM CHIEF GUARD [facility] [employer] LABORATORY SERVICES [facility] BASOPHILS 1 % 10/20/2023 5:25 AM CHIEF GUARD [facility] LABORATORY SERVICES [facility] NEUTROPHIL ABSOLUTE 4.90 1.90 - 7.00 K/uL 10/20/2023 5:25 AM CHIEF GUARD [facility] LABORATORY SERVICES [facility] LYMPHOCYTE ABSOLUTE 1.90 0.70 - 4.50 K/uL 10/20/2023 5:25 AM CHIEF GUARD [employer] LABORATORY SERVICES [facility] MONOCYTE ABSOLUTE 0.50 0.10 - 1.30 K/uL 10/20/2023 5:25 AM CHIEF GUARD [facility] LABORATORY SERVICES [facility] EOSINOPHIL ABSOLUTE 0.90(H) 0.00 - 0.70 K/uL 10/20/2023 5:25 AM CHIEF GUARD [facility] LABORATORY SERVICES [facility] BASOPHILS ABSOLUTE 0.00 0.00 - 0.20 K/uL 10/20/2023 5:25 AM [facility] Blood 10/20/2023 2:20 AM CHIEF GUARD 10/20/2023 5:15 AM CHIEF GUARD Erik Chairez MD HEMATOLOGY ORDERABLES Final Resu lt [facility] CLIA# [id number] [address] [place] [address] * (ABNORMAL) BASIC METABOLIC PANEL (10/20/2023 2:20 AM CHIEF GUARD) SODIUM 140 136 - 145 mmol/L 10/20/2023 5:53 AM [facility] POTASSIUM 3.8 3.4 - 5.1 mmol/L 10/20/2023 5:53 AM [facility] CHLORIDE 101 98 - 107 mmol/L 10/20/2023 5:53 AM [facility] CO2 26 22 - 29 mmol/L 10/20/2023 5:53 AM [facility] CALCIUM 9.6 8.6 - 10.4 mg/dL 10/20/2023 5:53 AM [facility] BUN 30(H) 6 - 20 mg/dL 10/20/2023 5:53 AM [facility] CREATININE 0.89 0.67 - 1.17 mg/dL 10/20/2023 5:53 AM [facility] Comment:The GFR result is no t clinically significant on patients <18 or >70 years of age. GLUCOSE 110(H) 74 - 99 mg/dL 10/20/2023 5:53 AM [facility] GFR >60 mL/min/1.7 3 sq meter 10/20/2023 5:53 AM [facility] Comment:eGFR calculated with 2020 CKD-EPI equation. Vegetarian diet, extremely high or low muscle mass, and may affect results. Cystatin C with Glomerular Filtration Rate is a suitable alternative for these patients. 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
--- OUTSIDE RECORDS SUMMARY | 2025-04-30 09:51 | XMS_ITS | Encounter Summary ---
Author Organization [facility] Address [address] [place] [address] Care Team Providers Care Commissary Worker Name Role Phone Unavailable Primary Care Provider Unavailabl e Encounter Details Date Type Department Care Team (Late st Contact Info) Description 10/11/2023 Lab Requisition [facility] Laboratory Services [address] [place] [address] [place] [address] [place] [address] Social History Tobacco Use Types Packs/Day Years Used Date Smoking Tobacco: Never Assessed Sex and Gender Information Value Date Recorded Sex Assigned at Not on file Legal Sex Male 9:18 AM RAMP ATTENDANT Gender Identity Not on file Sexual Orientation Not on file documented as of this encounter Plan of Treatment Not on file documented as of this encounter Procedures Procedure Name Priority Date/Time Associated Diagnosis Comments CBC WITH DIFFERENTIAL Routine 10/11/2023 3:30 AM RAMP ATTENDANT TRIGLYCERIDE Routine 10/11/2023 3:30 AM RAMP ATTENDANT MAGNESIUM LEVEL Routine 10/11/2023 3:30 AM RAMP ATTENDANT RENAL FUNCTION PANEL Routine 10/11/2023 3:30 AM RAMP ATTENDANT documented in this encounter Results * (ABNORMAL) TRIGLYCERIDE (10/11/2023 3:30 AM RAMP ATTENDANT) TRIGLYCERIDE 192(H) <150 mg/dL 10/11/2023 6:28 AM RAMP ATTENDANT [facility] LABORATORY SERVICES [facility] Blood 10/11/2023 3:30 AM RAMP ATTENDANT 10/11/2023 5:43 AM RAMP ATTENDANT Narrative [facility] [employer] [facility] - 10/11/2023 6:28 AM RAMP ATTENDANT TRIGLYCERIDES mg/dL Normal < 150 Borderline High 150 - 199 High 200 - 499 Very High >= 500 Based on AHA/NCEP Guidelines. Erik Chairez MD CHEMISTRY ORDERABLES Final Resul t Performing Organization Address City/[facility]/ZIP Co de Phone Number [facility] CLIA# [id number] [address] [place] [address] * MAGNESIUM LEVEL (10/11/2023 3:30 AM RAMP ATTENDANT) MAGNESIUM 2.2 1.6 - 2.6 mg/dL 10/11/2023 6:28 AM [facility] Blood 10/11/2023 3:30 AM RAMP ATTENDANT 10/11/2023 5:43 AM RAMP ATTENDANT Erik Chairez MD CHEMISTRY ORDERABLES Final Resul t Performing Organization Address City/[facility]/ZIP Co de Phone Number [facility] CLIA# [id number] [place] [address] * (ABNORMAL) CBC WITH DIFFERENTIAL (10/11/2023 3:30 AM RAMP ATTENDANT) WBC 8.8 4.5 - 10.5 K/uL 10/11/2023 6:05 AM [facility] [employer] [facility] RBC 3.43(L) 4.50 - 5.40 M/uL 10/11/2023 6:05 AM [facility] [employer] [facility] HEMOGLOBIN 10.5(L) 13.6 - 16.5 g/dL 10/11/2023 6:05 AM [facility] HEMATOCRIT 32.7(L) 40.0 - 48.0 % 10/11/2023 6:05 AM [facility] MCV 95.4 82.0 - 99.0 fL 10/11/2023 6:05 AM [facility] MCH 30.7 27.8 - 34.5 pg 10/11/2023 6:05 AM [facility] LABORATORY [facility] MCHC 32.2(L) 32.5 - 35.5 g/dL 10/11/2023 6:05 AM [facility] LABORATORY [facility] RDW 18.7(H) 11.5 - 14.5 % 10/11/2023 6:05 AM [facility] LABORATORY [facility] PLATELETS 218 160 - 420 K/uL 10/11/2023 6:05 AM [facility] LABORATORY [facility] MPV 9.3 8.7 - 12.7 fL 10/11/2023 6:05 AM RAMP ATTENDANT [facility] LABORATORY SERVICES [facility] NEUTROPHILS 67 % 10/11/2023 6:05 AM RAMP ATTENDANT [facility] LABORATORY SERVICES [facility] LYMPHOCYTES 18 % 10/11/2023 6:05 AM RAMP ATTENDANT [facility] LABORATORY SERVICES [facility] MONOCYTES 7 % 10/11/2023 6:05 AM RAMP ATTENDANT [facility] LABORATORY [facility] EOSINOPHILS 7 % 10/11/2023 6:05 AM [facility] LABORATORY [facility] BASOPHILS 1 % 10/11/2023 6:05 AM RAMP ATTENDANT [facility] LABORATORY [facility] NEUTROPHIL ABSOLUTE 5.90 1.90 - 7.00 K/uL 10/11/2023 6:05 AM [facility] LABORATORY [facility] LYMPHOCYTE ABSOLUTE 1.60 0.70 - 4.50 K/uL 10/11/2023 6:05 AM [facility] LABORATORY [facility] MONOCYTE ABSOLUTE 0.60 0.10 - 1.30 K/uL 10/11/2023 6:05 AM [facility] LABORATORY [facility] EOSINOPHIL ABSOLUTE 0.60 0.00 - 0.70 K/uL 10/11/2023 6:05 AM RAMP ATTENDANT [facility] LABORATORY [facility] BASOPHILS ABSOLUTE 0.10 0.00 - 0.20 K/uL 10/11/2023 6:05 AM [facility] LABORATORY [facility] Blood 10/11/2023 3:30 AM RAMP ATTENDANT 10/11/2023 5:43 AM RAMP ATTENDANT us Erik Chairez MD HEMATOLOGY ORDERABLES Final Resu lt [facility] CLIA# [id number] [address] [place] [address] * (ABNORMAL) RENAL FUNCTION PANEL (10/11/2023 3:30 AM RAMP ATTENDANT) SODIUM 145 136 - 145 mmol/L 10/11/2023 6:28 AM [facility] [employer] [facility] POTASSIUM 4.0 3.4 - 5.1 mmol/L 10/11/2023 6:28 AM [facility] CHLORIDE 106 98 - 107 mmol/L 10/11/2023 6:28 AM [facility] CO2 26 22 - 29 mmol/L 10/11/2023 6:28 AM [facility] CALCIUM 9.3 8.6 - 10.4 mg/dL 10/11/2023 6:28 AM [facility] BUN 38(H) 6 - 20 mg/dL 10/11/2023 6:28 AM [facility] CREATININE 1.38(H) 0.67 - 1.17 mg/dL 10/11/2023 6:28 AM [facility] Comment:The GFR result is no t clinically significant on patients <18 or >70 years of age. GLUCOSE 85 74 - 99 mg/dL 10/11/2023 6:28 AM [facility] ALBUMIN 3.4(L) 3.5 - 5.2 g/dL 10/11/2023 6:28 AM [facility] PHOSPHORUS 3.9 2.5 - 4.5 mg/dL 10/11/2023 6:28 AM [facility] GFR 51 mL/min/1.7 3 sq meter 10/11/2023 6:28 AM [facility] Comment:eGFR calculated with 2020 CKD-EPI equation. Vegetarian diet, extremely high or low muscle mass, and may affect results. Cystatin C with Glomerular Filtration Rate is a suitable alternative for these patients. ANION GAP 13 8 - 16 mmol/L 10/11/2023 6:28 AM RAMP ATTENDANT [facility] LABORATORY [facility] Blood 10/11/2023 3:30 AM RAMP ATTENDANT 10/11/2023 5:43 AM RAMP ATTENDANT Erik Chairez MD CHEMISTRY ORDERABLES Final Resul t [facility] LABORATORY [facility] CLIA# [id number] [address] [place] [address] documented in this encounter Visit Diagnoses Not on filedocumented in this encounter Additional Health Concerns Infection Onset Date Last Indicated Resolved Time CRE-CP Comment:10/09/23 Klebsiella pneumoniae, Sputum 10/09/2023 10/09/2023 05/28/2024 2:37 PM C DT Multi Drug Resistant Organis m (MDRO) Comment:10/09/23 Klebsiella pneumoniae, CRE-CP organism, Sputum 10/09/2023 10/09/2023 DRAIN CLEANER PLUMBER-CP Comment:10/09/23 Klebsiella pneumoniae, Sputum 10/09/2023 05/28/2024 documented as of this encounter
--- OUTSIDE RECORDS SUMMARY | 2025-04-30 09:51 | XMS_ITS | Encounter Summary ---
Author Organization [facility] Address [address] [place] [address] Care Team Providers Care Heel Packer Name Role Phone Unavailable Primary Care Provider Unavailabl e Encounter Details Date Type Department Care Team (Late st Contact Info) Description 10/13/2023 Lab Requisition [facility] Laboratory Services [address] [place] [address] [place] [address] [place] [address] Social History Tobacco Use Types Packs/Day Years Used Date Smoking Tobacco: Never Assessed Sex and Gender Information Value Date Recorded Sex Assigned at Not on file Legal Sex Male 9:18 AM TECHNICAL STAFF ASSISTANT Gender Identity Not on file Sexual Orientation Not on file documented as of this encounter Plan of Treatment Not on file documented as of this encounter Procedures Procedure Name Priority Date/Time Associated Diagnosis Comments MAGNESIUM LEVEL Routine 10/13/2023 4:00 AM TECHNICAL STAFF ASSISTANT RENAL FUNCTION PANEL Routine 10/13/2023 4:00 AM TECHNICAL STAFF ASSISTANT documented in this encounter Results * MAGNESIUM LEVEL (10/13/2023 4:00 AM TECHNICAL STAFF ASSISTANT) MAGNESIUM 2.3 1.6 - 2.6 mg/dL 10/13/2023 5:59 AM TECHNICAL STAFF ASSISTANT [facility] [employer] [facility] Blood Collection / Unknown 10/13/2023 4:00 AM TECHNICAL STAFF ASSISTANT 10/13/2023 5:20 AM TECHNICAL STAFF ASSISTANT us Erik Chairez MD CHEMISTRY ORDERABLES Final Resul t [facility] [id number] [address] [place] [address] * (ABNORMAL) RENAL FUNCTION PANEL (10/13/2023 4:00 AM TECHNICAL STAFF ASSISTANT) SODIUM 138 136 - 145 mmol/L 10/13/2023 5:58 AM [facility] POTASSIUM 4.5 3.4 - 5.1 mmol/L 10/13/2023 5:58 AM [facility] CHLORIDE 100 98 - 107 mmol/L 10/13/2023 5:58 AM [facility] CO2 25 22 - 29 mmol/L 10/13/2023 5:58 AM [facility] CALCIUM 9.6 8.6 - 10.4 mg/dL 10/13/2023 5:58 AM [facility] BUN 39(H) 6 - 20 mg/dL 10/13/2023 5:58 AM [facility] CREATININE 1.09 0.67 - 1.17 mg/dL 10/13/2023 5:58 AM [facility] Comment:The GFR result is no t clinically significant on patients <18 or >70 years of age. GLUCOSE 100(H) 74 - 99 mg/dL 10/13/2023 5:58 AM [facility] ALBUMIN 3.5 3.5 - 5.2 g/dL 10/13/2023 5:58 AM [facility] PHOSPHORUS 4.8(H) 2.5 - 4.5 mg/dL 10/13/2023 5:58 AM [facility] GFR >60 mL/min/1.7 3 sq meter 10/13/2023 5:58 AM [facility] Comment:eGFR calculated with 2020 CKD-EPI equation. Vegetarian diet, extremely high or low muscle mass, and may affect results. Cystatin C with Glomerular Filtration Rate is a suitable alternative for these patients. ANION GAP 13 8 - 16 mmol/L 10/13/2023 5:58 AM [facility] Blood Collection / Unknown 10/13/2023 4:00 AM TECHNICAL STAFF ASSISTANT 10/13/2023 5:20 AM TECHNICAL STAFF ASSISTANT Erik Chairez MD CHEMISTRY ORDERABLES Final Resul t [facility] LABORATORY SERVICES [facility] CLIA# [id number] [address] [place] [address] documented in this encounter Visit Diagnoses Not on filedocumented in this encounter Additional Health Concerns Infection Onset Date Last Indicated Resolved Time CRE-CP Comment:10/09/23 Klebsiella pneumoniae, Sputum 10/09/2023 10/09/2023 05/28/2024 2:37 PM C DT Multi Drug Resistant Organis m (MDRO) Comment:10/09/23 Klebsiella pneumoniae, CRE-CP organism, Sputum 10/09/2023 10/09/2023 ASSOCIATE DIRECTOR OF NURSING-CP Comment:10/09/23 Klebsiella pneumoniae, Sputum 10/09/2023 05/28/2024 documented as of this encounter
--- OUTSIDE RECORDS SUMMARY | 2025-04-30 09:51 | XMS_ITS | Encounter Summary ---
Author Organization [facility] Health Address [facility] [facility] [place] [address] Care Team Providers Care Vocational Psychologist Name Role Phone Demond Stark MD Primary Care Provider [phone] Encounter Details Date Type Department Care Team (Late st Contact Info) Description 04/29/2025 1:00 PM CDT Office Visit [facility] - Neurology [address] [facility], [place] [address] Callie Mendoza DO [address] [facility] [address] [place] [address] Venus Mckinley APRN-AUDIO VISUAL PROJECT MANAGER [address] [facility] 1L [place] [address] Chronic subdural hematoma (HCC) (Primary [...] and heating? Not hard at all 12/25/2024 [facility] [place] of Occupat ional Health - Occupational Stress [...] any time in the past 12 m [facility], were you homeless or living in a jail (including now)? 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 H/o Chronic Subdural hematoma (Feel out ladder) 2018 H/o Dysphagia (Have PEG tube) and Colostomy Able to eat wnl now- [place] diet The first symptom was Tremors before [...] daily living- Is Motivated Sleep: wnl Work: [employer]: says its getting better Had a Fall received - [employer] ([place] better) Unable to tolerate Sinemet ALLERGIES: Allergies[1] [...] present Muscle Strength: Strength Deltoid Triceps Biceps Aws Software Development Engineer Iliopsoas Hamstring Quadriceps TA EHL R 01/25 [...] Signed Electronically, Venus Mckinley, Ph.D., MSN, LISA, [facility]- Nurse Practitioner, Movement Disorders Neurology clinic [facility] Neurology 04/29/2025 [1] Allergies Allergen Reactions Benadryl [...] status (HCC) Constipation, unspecified Coronary arteriosclerosis in [place] artery COVID-19 Dizziness Dysfunction of right eustachian [...] Description 02/04/2026 9:00 AM CDT Office Visit [facility]ician Group - GI [address] [facility] [place] [address] Callie Mendoza DO [address] [facility] [address]RD FLO[address] 1 [place] [address] documented as of this encounter Goals Goal Patient Goal Type Associated Problems Recent Progress Patient-Stated? Author Nutrition General On track( 025 8:41 AM CDT) No Yohana Foster, MANUEL Note: Expected end date: Working on plan Nutritional status is maintained or improving. Interventions: Take nutritional supplements as ordered Collaborate with the clinical administration clerk Oral care Use soft toothbrushes Keep hydrated documented as of this encounter Visit Diagnoses Diagnosis Chronic subdural hematoma (HCC)- Primary Subdural hemorrhage documented in this encounter Care Teams Vocational Psychologist Relationship Specialty Start Date End Date Demond Stark MD [address] [place] [phone] PCP - General 10/03/15 documented as of this encounter
--- OUTSIDE RECORDS SUMMARY | 2025-04-30 09:51 | XMS_ITS | Encounter Summary ---
Author Organization [facility] Health Address [facility] [place] [address] Care Team Providers Care Lead Business Systems Analyst Name Role Phone Demond Stark MD Primary Care Provider [phone] Encounter Details Date Type Department Care Team [...] and heating? Not hard at all 12/25/2024 [facility] [employer] of Occupat ional Health - Occupational Stress [...] any time in the past 12 m [facility], were you homeless or living in a fci (including now)? 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ician Group - GI [address] Third Level [place] [phone] Callie Mendoza DO [address] [facility] [address] FLO[address] [place] [phone] documented as of this encounter Goals Goal Patient Goal Type Associated Problems Recent Progress Patient-Stated? Author Nutrition General On track( 025 8:41 AM CDT) Yohana Gomez, RN Note: Expected end date: Working on plan Nutritional status is maintained or improving. Interventions: Take nutritional supplements as ordered Collaborate with the clinical echo technician Oral care Use soft toothbrushes Keep hydrated documented as of this encounter Visit Diagnoses Not on filedocumented in this encounter Care Teams Lead Business Systems Analyst Relationship Specialty Start Date End Date Demond Stark MD [address] [place] [address] PCP - General 10/03/15 documented as of this encounter
--- OUTSIDE RECORDS SUMMARY | 2025-04-30 09:51 | XMS_ITS | Clinical Summary ---
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
--- OUTSIDE RECORDS SUMMARY | 2025-04-30 09:51 | XMS_ITS | Encounter Summary ---
Author Organization [facility] Address [address] [place] [address] Care Team Providers Care Communications Advisor Name Role Phone Unavailable Primary Care Provider Unavailabl e Encounter Details Date Type Department Care Team (Late st Contact Info) Description 10/17/2023 Lab Requisition [facility] Services [address] [place] [address] [place] [address] [place] [address] Social History Tobacco Use Types Packs/Day Years Used Date Smoking Tobacco: Never Assessed Sex and Gender Information Value Date Recorded Sex Assigned at Not on file Legal Sex Male 9:18 AM TIMBER REPAIRER Gender Identity Not on file Sexual Orientation Not on file documented as of this encounter Plan of Treatment Not on file documented as of this encounter Procedures Procedure Name Priority Date/Time Associated Diagnosis Comments CBC WITH DIFFERENTIAL Routine 10/17/2023 2:15 AM TIMBER REPAIRER MAGNESIUM LEVEL Routine 10/17/2023 2:15 AM TIMBER REPAIRER RENAL FUNCTION PANEL Routine 10/17/2023 2:15 AM TIMBER REPAIRER documented in this encounter Results * MAGNESIUM LEVEL (10/17/2023 2:15 AM TIMBER REPAIRER) MAGNESIUM 2.3 1.6 - 2.6 mg/dL 10/17/2023 9:56 AM TIMBER REPAIRER [facility] Blood Collection / Unknown 10/17/2023 2:15 AM TIMBER REPAIRER 10/17/2023 9:00 AM TIMBER REPAIRER Erik Chairez MD CHEMISTRY ORDERABLES Final Resul t [facility] CLIA# [id number] [address] [place] [address] * (ABNORMAL) CBC WITH DIFFERENTIAL (10/17/2023 2:15 AM TIMBER REPAIRER) WBC 6.7 4.5 - 10.5 K/uL 10/17/2023 9:34 AM TIMBER REPAIRER [facility] RBC 3.73(L) 4.50 - 5.40 M/uL 10/17/2023 9:34 AM TIMBER REPAIRER [facility] HEMOGLOBIN 11.1(L) 13.6 - 16.5 g/dL 10/17/2023 9:34 AM TIMBER REPAIRER [facility] HEMATOCRIT 35.0(L) 40.0 - 48.0 % 10/17/2023 9:34 AM TIMBER REPAIRER [facility] MCV 93.8 82.0 - 99.0 fL 10/17/2023 9:34 AM TIMBER REPAIRER [facility] MCH 29.8 27.8 - 34.5 pg 10/17/2023 9:34 AM TIMBER REPAIRER [facility] MCHC 31.8(L) 32.5 - 35.5 g/dL 10/17/2023 9:34 AM TIMBER REPAIRER [facility] RDW 17.4(H) 11.5 - 14.5 % 10/17/2023 9:34 AM TIMBER REPAIRER [facility] PLATELETS 214 160 - 420 K/uL 10/17/2023 9:34 AM TIMBER REPAIRER [facility] MPV 9.5 8.7 - 12.7 fL 10/17/2023 9:34 AM TIMBER REPAIRER [facility] NEUTROPHILS 50 % 10/17/2023 9:34 AM TIMBER REPAIRER [facility] LYMPHOCYTES 28 % 10/17/2023 9:34 AM TIMBER REPAIRER [facility] MONOCYTES 8 % 10/17/2023 9:34 AM TIMBER REPAIRER [facility] EOSINOPHILS 13 % 10/17/2023 9:34 AM TIMBER REPAIRER [facility] BASOPHILS 0 % 10/17/2023 9:34 AM TIMBER REPAIRER [facility] NEUTROPHIL ABSOLUTE 3.40 1.90 - 7.00 K/uL 10/17/2023 9:34 AM TIMBER REPAIRER [facility] LYMPHOCYTE ABSOLUTE 1.90 0.70 - 4.50 K/uL 10/17/2023 9:34 AM TIMBER REPAIRER [facility] MONOCYTE ABSOLUTE 0.50 0.10 - 1.30 K/uL 10/17/2023 9:34 AM TIMBER REPAIRER [facility] EOSINOPHIL ABSOLUTE 0.90(H) 0.00 - 0.70 K/uL 10/17/2023 9:34 AM TIMBER REPAIRER [facility] BASOPHILS ABSOLUTE 0.00 0.00 - 0.20 K/uL 10/17/2023 9:34 AM TIMBER REPAIRER [facility] Blood Collection / Unknown 10/17/2023 2:15 AM TIMBER REPAIRER 10/17/2023 9:00 AM TIMBER REPAIRER us Erik Chairez MD HEMATOLOGY ORDERABLES Final Resu lt [facility] CLIA# [id number] [address] [place] [address] * (ABNORMAL) RENAL FUNCTION PANEL (10/17/2023 2:15 AM TIMBER REPAIRER) SODIUM 137 136 - 145 mmol/L 10/17/2023 9:56 AM [facility] [employer] [facility] POTASSIUM 4.0 3.4 - 5.1 mmol/L 10/17/2023 9:56 AM [facility] CHLORIDE 99 98 - 107 mmol/L 10/17/2023 9:56 AM [facility] [employer] [facility] CO2 23 22 - 29 mmol/L 10/17/2023 9:56 AM [facility] [employer] [facility] CALCIUM 9.2 8.6 - 10.4 mg/dL 10/17/2023 9:56 AM [facility] [employer] [facility] BUN 42(H) 6 - 20 [...] Blood Collection / Unknown 10/17/2023 2:15 AM TIMBER REPAIRER 10/17/2023 9:00 AM TIMBER REPAIRER Erik Chairez MD CHEMISTRY ORDERABLES Final Resul t [facility] CLIA# [id number] [address] [place] [address] documented in this encounter Visit Diagnoses Not on filedocumented in this encounter Additional Health Concerns Infection Onset Date Last Indicated Resolved Time CRE-CP Comment:10/09/23 Klebsiella pneumoniae, Sputum 10/09/2023 10/09/2023 05/28/2024 2:37 PM C 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
--- OUTSIDE RECORDS SUMMARY | 2025-04-30 09:51 | XMS_ITS | Encounter Summary ---
Author Organization [facility] Address [address] [place] [address] Care Team Providers Care Heavy Equipment Sales Associate Name Role Phone Unavailable Primary Care Provider Unavailabl e Encounter Details Date Type Department Care Team (Late st Contact Info) Description 10/10/2023 Lab Requisition [facility] Laboratory Services [address] [place] [address] [place] [address] [place] [address] Social History Tobacco Use Types Packs/Day Years Used Date Smoking Tobacco: Never Assessed Sex and Gender Information Value Date Recorded Sex Assigned at Not on file Legal Sex Male 9:18 AM AIRBRUSH ARTIST PHOTOGRAPHY Gender Identity Not on file Sexual Orientation Not on file documented as of this encounter Plan of Treatment Not on file documented as of this encounter Procedures Procedure Name Priority Date/Time Associated Diagnosis Comments CARBAPENEM RESISTANT ORGANISM Routine 10/09/2023 9:30 PM AIRBRUSH ARTIST PHOTOGRAPHY SPUTUM CULTURE WITH GRAM STAIN Routine 10/09/2023 9:30 PM AIRBRUSH ARTIST PHOTOGRAPHY documented in this encounter Results * (ABNORMAL) CARBAPENEM RESISTANT ORGANISM (10/09/2023 9:30 PM AIRBRUSH ARTIST PHOTOGRAPHY) ORGANISM TESTED Klebsiella pneumoniae 10/12/2023 4:25 PM AIRBRUSH ARTIST PHOTOGRAPHY [facility] Carbapenem Resistance Gene Detected(A) Not Detected 10/12/2023 4:25 PM AIRBRUSH ARTIST PHOTOGRAPHY [facility] KPC (carbapenem-re sistance gene) by PCR DETECTED(A) Not Detected 10/12/2023 4:25 PM AIRBRUSH ARTIST PHOTOGRAPHY [facility] Sputum Collection / Unknown 10/09/2023 9:30 PM AIRBRUSH ARTIST PHOTOGRAPHY 10/10/2023 9:54 AM AIRBRUSH ARTIST PHOTOGRAPHY [facility] - 10/12/2023 4:25 PM AIRBRUSH ARTIST PHOTOGRAPHY This isolate is a carbapenem-resistant Organism (SELF PAY COLLECTOR) AND is a carbapenamase-movie producer. If inpatient, place patient in Enhanced Contact Isolation. The [employer] Xpert Carba-R PCR assay detects the presence of KPC, NDM, VIM, OXA- 48, and IMP gene sequences that induce carbapenemase production in gram negative bacteria. This test was performed using an FDA approved screening methodology. Erik Chairez MD MICROBIOLOGY - GENERAL ORDERABLE S Final Result [facility]# [id number] [address] [place] [address] * (ABNORMAL) SPUTUM CULTURE WITH GRAM STAIN (10/09/2023 9:30 PM AIRBRUSH ARTIST PHOTOGRAPHY) CULTURE KLEBSIELLA PNEUMONIAE(A) LUCINA MCG/ML 10/17/2023 10:47 AM AIRBRUSH ARTIST PHOTOGRAPHY [facility] [address] [facility] Comment: This isolate is a Carbapenem-Resistant Organism AND is a carbapenemase movie producer (SELF PAY COLLECTOR-CP). If inpatient, place patient in Enhanced Contact Isolation. Multiple drug resistant organism (MDRO). CULTURE Absent Normal Shahrzad LUCINA MCG/ML 10/17/2023 10:47 AM [facility] [address] [facility] GRAM STAIN Non diagnostic pattern LUCINA MCG/ML 10/17/2023 10:47 AM [facility] GRAM STAIN No WBC observed 10/17/2023 10:47 AM [facility] [address] [facility] Sputum Collection / Unknown 10/09/2023 9:30 PM AIRBRUSH ARTIST PHOTOGRAPHY 10/10/2023 9:54 AM AIRBRUSH ARTIST PHOTOGRAPHY [facility] [address] [facility] - 10/17/2023 10:47 AM AIRBRUSH ARTIST PHOTOGRAPHY Results called to Kelly Suarez RN, Rosalie [...] Edited Result - Final Performing Organization Address City/State/[facility] Co de Phone Number [facility]# [id number] [address] [place] [address] documented in this encounter Visit Diagnoses Not on filedocumented in this encounter Additional Health Concerns Infection Onset Date Last Indicated Resolved Time CRE-CP Comment:10/09/23 Klebsiella pneumoniae, Sputum 10/09/2023 10/09/2023 05/28/2024 2:37 PM C DT 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
--- OUTSIDE RECORDS SUMMARY | 2025-04-30 09:51 | XMS_ITS | Clinical Summary ---
Author Organization [facility] Facility Address [address] [place] [address] Care Team Providers Care Manufacturing Engineer Automotive Name Role Phone Demond Stark MD Primary Care Provider [phone] Encounters Date Type Department Care Team Description 04/07/2025 Documentation Only [facility] Alan. [address] [facility] [address] [place] [address] Raúl Ross MD 03/31/2025 Orders Only [facility] Alan. [address] [facility] [place] [address] Rula Caballero MA Hypertension (Primary Dx); Long-term drug therapy 03/10/2025 Documentation Only [facility] Alan. [address] [facility] [place] [address] Raúl Ross MD 03/02/2025 Orders Only [facility] Alan. [address] [facility] [address] [place] [address] Rula [address] MA Renal insufficiency (Primary Dx); Hypertension; Other proteinuria 03/02/2025 Orders Only [facility] AlanKasie [address] [facility] [place] [address] Rula [address] MA Renal insufficiency (Primary Dx); [...] Vaccine (#1) 2025 07/24/2010, 2009 Care Teams Manufacturing Engineer Automotive Relationship Specialty Start Date End Date Demond Stark MD [address] [address] PCP - General Family Medicine 06/04/24
--- OUTSIDE RECORDS SUMMARY | 2025-04-30 09:51 | XMS_ITS | Encounter Summary ---
Author Organization [facility] Address [facility] [facility] [place] [address] Care Team Providers Care Oil Burner Servicer And Installer Name Role Phone Demond Stark MD Primary Care Provider [phone] Encounter Details Date Type Department Care Team (Late Contact Info) Description 06/13/2023 Lab Requisition [facility] [address] [place] [phone] Jaxon Anaya MD [address] [place], [place] [id number] Social History Tobacco Use Types Packs/Day Years Used Date Smoking Tobacco: Former Cigarettes Q uit: 09/23/1969 Smokeless Tobacco: Never Alcohol Use Standard Drinks/Week Comments Yes 0 (1 standard drink = 0.6 oz pur e alcohol) Sex and Gender Information Value Date Recorded Sex Assigned at Not on file Legal Sex Male 5:43 PM CARGO BRACER Gender Identity Not on file Sexual Orientation Not on file documented as of this encounter Plan of Treatment Upcoming Encounters Date Type Department Care Team (Late Contact Info) Description 02/04/2026 9:00 AM CDT Office Visit [facility] [address] [place] [address] Callie Mendoza DO [address] [facility] [address] FLO[address] [place] [address] documented as of this encounter Procedures Procedure Name Priority Date/Time Associated Diagnosis Comments DERMATOPATHOLOGY Routine 06/12/2023 12:0 0 AM CDT documented in this encounter Results * DERMATOPATHOLOGY (06/12/2023 12:00 AM CDT) Case Report Dermatopathology Report Case: [id number] Authorizing Provider: Jaxon Anaya MD Collected: 06/12/2023 12:00 AM Ordering Location: [facility] Received: 06/13/2023 01:28 [...] specimen consists of a shave biopsy measuring [id number] mm. Jar 0. 3:42 PM CDT DERMATOPATHOLOGY [...] purposes. Billing Codes Specimen Charges Stain Charges 58010 1 23502 1 3 3:42 PM CDT DERMATOPATHOLOGY LABORATORY Embedded Images 3 3:42 PM CDT DERMATOPATHOLOGY LABORATORY Pathology/Cytolog y TISSUE SPECIMEN FROM SKIN / Unknown 06/12/2023 06/13/2023 1:28 PM CDT Jaxon Anaya MD LAB - PATHOLOGY/CYTOLOGY ORD ERABLES Final Result DERMATOPATHOLOGY LABORATORY [facility] - Department of Dermatology [facility] Medicine [address] [place] [address], [address] [phone] documented in this encounter Visit Diagnoses Not on filedocumented in this encounter Care Teams Oil Burner Servicer And Installer Relationship Specialty Start Date End Date Demond Stark MD [address] [place] [address] PCP - General 10/03/15 documented as of this encounter
--- OUTSIDE RECORDS SUMMARY | 2025-04-30 09:51 | XMS_ITS | Encounter Summary ---
Author Organization [facility] Address [facility] [facility] [place] [address] Care Team Providers Care Special Events Manager Name Role Phone Demond Stark MD Primary Care Provider [phone] Reason for Referral * Radiology Services (Routine) - Closed Specialty Diagnoses / Procedures Referred By Bhavnaac saskia Referred To Contact Fluoroscopy Diagnoses Zenker's diverticulum Procedures [place] Esophagram Callie Mendoza DO [address] [facility] [address] F[address] [place] [address] Phone: tel: fax: Referral ID Status Reason Start Date Expiration Date Visits Re quested Visits Authorized [id number] Closed 02/05/2025 02/05/2026 1 1 Reason for Visit * Radiology Services (Routine) - Closed Specialty Diagnoses / Procedures Referred By Rosa kruger Referred To Contact Fluoroscopy Diagnoses Zenker's diverticulum Procedures [place] Esophagram Callie Mendoza DO [address] [facility] [address] [place] [address] Phone: tel: fax: Referral ID Status Reason Start Date Expiration Date Visits Re quested Visits Authorized [id number] Closed 02/05/2025 02/05/2026 1 1 Encounter Details Date Type Department Care Team (Latest Contact Info) Description 04/29/2025 9:13 AM CDT - 04/29/2025 11:59 PM CDT Hospital Encounter [facility] DI[facility]STIC RAD [address] [place] [phone] Callie Mendoza DO [address] [facility] [address] F[address] [place] [address] Discharge Disposition: Home or Self Care Social [...] and heating? Not hard at all 12/25/2024 [facility] - [...] time in the past 12 m [facility], were you homeless or living in a [facility] (including now)? 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 Author Nutrition General On track( 025 8:41 AM CDT) Yohana Gomez, MANUEL Note: Expected end date: Working on plan Nutritional status is maintained or improving. Interventions: Take nutritional supplements as ordered Collaborate with the clinical box folding machine operator Oral care Use soft toothbrushes [...] oz documented in this encounter Care Teams Special Events Manager Relationship Specialty Start Date End Date Demond Stark MD [address] [place] [address] PCP - General 10/03/15 documented as of this encounter
--- OUTSIDE RECORDS SUMMARY | 2025-04-30 09:51 | XMS_ITS | Encounter Summary ---
Author Organization [facility] Address [address] [place] [address] Care Team Providers Care Radial Drill Press Operator For Plastic Name Role Phone Unavailable Primary Care Provider Unavailabl e Encounter Details Date Type Department Care Team (Late st Contact Info) Description 10/10/2023 Lab Requisition [facility] Laboratory Services [address] [place] [address] [place] [id number] [place] [address] Social History Tobacco Use Types Packs/Day Years Used Date Smoking Tobacco: Never Assessed Sex and Gender Information Value Date Recorded Sex Assigned at Not on file Legal Sex Male 9:18 AM VARYING EXCEPTIONALITIES TEACHER Gender Identity Not on file Sexual Orientation Not on file documented as of this encounter Plan of Treatment Not on file documented as of this encounter Procedures Procedure Name Priority Date/Time Associated Diagnosis Comments CBC WITH DIFFERENTIAL Routine 10/10/2023 3:30 AM VARYING EXCEPTIONALITIES TEACHER PTT Routine 10/10/2023 3:30 AM VARYING EXCEPTIONALITIES TEACHER PROTIME-INR Routine 10/10/2023 3:30 AM VARYING EXCEPTIONALITIES TEACHER PREALBUMIN Routine 10/10/2023 3:30 AM VARYING EXCEPTIONALITIES TEACHER COMPREHENSIVE METABOLIC PANEL Routine 10/10/2023 3:30 AM VARYING EXCEPTIONALITIES TEACHER documented in this encounter Results * PTT (10/10/2023 3:30 AM VARYING EXCEPTIONALITIES TEACHER) PTT 23.4 23.1 - 37.1 seconds 10/10/2023 10:14 AM VARYING EXCEPTIONALITIES TEACHER [facility] Blood Collection / Unknown 10/10/2023 3:30 AM VARYING EXCEPTIONALITIES TEACHER 10/10/2023 9:51 AM VARYING EXCEPTIONALITIES TEACHER Erik Chairez MD HEMATOLOGY ORDERABLES Final Resu lt [facility] CLIA# [id number] [address] [place] [address] * (ABNORMAL) PROTIME-INR (10/10/2023 3:30 AM VARYING EXCEPTIONALITIES TEACHER) PROTIME 15.0(H) 11.5 - 14.7 Seconds 10/10/2023 10:14 AM VARYING EXCEPTIONALITIES TEACHER [facility] LABORATORY [facility] INR 1.2(H) 0.9 - 1.1 10/10/2023 10:14 AM VARYING EXCEPTIONALITIES TEACHER [facility] LABOR[facility]ORY [facility] Blood Collection / Unknown 10/10/2023 3:30 AM VARYING EXCEPTIONALITIES TEACHER 10/10/2023 9:51 AM VARYING EXCEPTIONALITIES TEACHER Erik Chairez MD HEMATOLOGY ORDERABLES Final Resu lt [facility] [employer] [facility] CLIA# [id number] [place] [address] * PREALBUMIN (10/10/2023 3:30 AM VARYING EXCEPTIONALITIES TEACHER) PREALBUMIN 23 20 - 40 mg/dL 10/10/2023 2:24 PM VARYING EXCEPTIONALITIES TEACHER [facility] LABORATORY [facility] Blood Collection / Unknown 10/10/2023 3:30 AM VARYING EXCEPTIONALITIES TEACHER 10/10/2023 9:51 AM VARYING EXCEPTIONALITIES TEACHER Erik Chairez MD CHEMISTRY ORDERABLES Final Resul t [facility] [employer]ambda [facility] CLIA# [id number] [address] [place] [address] * (ABNORMAL) CBC WITH DIFFERENTIAL (10/10/2023 3:30 AM VARYING EXCEPTIONALITIES TEACHER) [facility] WBC 10.1 4.5 - 10.5 K/uL 10/10/2023 11:[address] [facility] RBC 3.85(L) 4.50 - 5.40 M/uL 10/10/2023 11:[address] [facility] HEMOGLOBIN 11.6(L) 13.6 - 16.5 g/dL 10/10/2023 11:06 AM [facility] [employer]ambda [facility] HEMATOCRIT 36.6(L) 40.0 - 48.0 % 10/10/2023 11:06 AM [facility] [employer] [facility] MCV 95.2 82.0 - 99.0 fL 10/10/2023 11:06 AM [facility] [employer] [facility] MCH 30.1 27.8 - 34.5 pg 10/10/2023 11:06 AM [facility] [employer]ambda [facility] MCHC 31.6(L) 32.5 - 35.5 g/dL 10/10/2023 11:06 AM [facility] [employer]ambda [facility] RDW 19.2(H) 11.5 - 14.5 % 10/10/2023 11:06 AM [facility] [employer]ambda [facility] PLATELETS 250 160 - 420 K/uL 10/10/2023 11:06 AM [facility] [employer] [facility] MPV 9.8 8.7 - 12.7 fL 10/10/2023 11:06 AM [facility] [employer] [facility] NEUTROPHILS 72 % 10/10/2023 11:06 AM [facility] [employer] [facility] LYMPHOCYTES 15 % 10/10/2023 11:06 AM VARYING EXCEPTIONALITIES TEACHER [facility] LABORATORY [facility] MONOCYTES 7 % 10/10/2023 11:06 AM VARYING EXCEPTIONALITIES TEACHER [facility] LABORATORY [facility] EOSINOPHILS 5 % 10/10/2023 11:06 AM VARYING EXCEPTIONALITIES TEACHER [facility] LABORATORY [facility] BASOPHILS 0 % 10/10/2023 11:06 AM [facility] LABORATORY [facility] NEUTROPHIL ABSOLUTE 7.20(H) 1.90 - 7.00 K/uL 10/10/2023 11:06 AM [facility] Red [employer]ambda [facility] LYMPHOCYTE ABSOLUTE 1.50 0.70 - 4.50 K/uL 10/10/2023 11:06 AM VARYING EXCEPTIONALITIES TEACHER [facility] LABORATORY [facility] MONOCYTE ABSOLUTE 0.70 0.10 - 1.30 K/uL 10/10/2023 11:06 AM VARYING EXCEPTIONALITIES TEACHER [facility] LABORATORY [facility] EOSINOPHIL ABSOLUTE 0.50 0.00 - 0.70 K/uL 10/10/2023 11:06 AM VARYING EXCEPTIONALITIES TEACHER [facility] LABORATORY [facility] BASOPHILS ABSOLUTE 0.00 0.00 - 0.20 K/uL 10/10/2023 11:06 AM VARYING EXCEPTIONALITIES TEACHER [facility] [employer]ambda [facility] Blood Collection / Unknown 10/10/2023 3:30 AM VARYING EXCEPTIONALITIES TEACHER 10/10/2023 9:51 AM VARYING EXCEPTIONALITIES TEACHER us Erik Chairez MD HEMATOLOGY ORDERABLES Final Resu lt [facility] CLIA# [id number] [place] [address] * (ABNORMAL) COMPREHENSIVE METABOLIC PANEL (10/10/2023 3:30 AM VARYING EXCEPTIONALITIES TEACHER) SODIUM 142 136 - 145 mmol/L 10/10/2023 10:49 AM [facility] Red Lambda [facility] POTASSIUM 4.1 3.4 - 5.1 mmol/L 10/10/2023 10:49 AM [facility] [employer] [facility] CHLORIDE 104 98 - 107 mmol/L 10/10/2023 10:49 AM [facility] Red [employer]ambda [facility] CO2 23 22 - 29 mmol/L 10/10/2023 10:49 AM [facility] [employer]ambda [facility] CALCIUM 9.4 8.6 - 10.4 mg/dL 10/10/2023 10:49 AM [facility] Red Lambda [facility] BUN 34(H) 6 - 20 mg/dL 10/10/2023 10:49 AM [facility] [employer] [facility] CREATININE 1.24(H) 0.67 - 1.17 mg/dL 10/10/2023 10:49 AM [facility] LABORATORY [facility] Comment:The GFR result is no t clinically significant on patients <18 or >70 years of age. GLUCOSE 91 74 - 99 mg/dL 10/10/2023 10:[address] [facility] TOTAL PROTEIN 7.4 6.3 - 8.7 g/dL 10/10/2023 10:[address] [facility] ALBUMIN 3.6 3.5 - 5.2 g/dL 10/10/2023 10:[address] [facility] BILIRUBIN TOTAL 0.6 0.2 - 1.1 mg/dL 10/10/2023 10:[address] [facility] ALKALINE PHOSPHATASE 84 40 - 150 U/L 10/10/2023 10:[address] [facility] AST 15 0 - 41 U/L 10/10/2023 10:[address] [facility] ALT 13 0 - 41 U/L 10/10/2023 10:[address] [facility] GFR 58 mL/min/1.7 3 sq meter 10/10/2023 10:[address] [facility] Comment:eGFR calculated with 2020 CKD-EPI equation. Vegetarian diet, extremely high or low muscle mass, and may affect results. Cystatin C with Glomerular Filtration Rate is a suitable alternative for these patients. ANION GAP 15 8 - 16 mmol/L 10/10/2023 10:[address] 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
--- OUTSIDE RECORDS SUMMARY | 2025-04-30 09:52 | XMS_ITS | Encounter Summary ---
Author Organization [facility] Address [address] [place] [address] Care Team Providers Care Electronic Industrial Controls Mechanic Name Role Phone Unavailable Primary Care Provider Unavailabl e Encounter Details Date Type Department Care Team (Late st Contact Info) Description 11/07/2023 Lab Requisition [facility] Laboratory Services [address] [place] [address] [place] [id number] [place] [address] Social History Tobacco Use Types Packs/Day Years Used Date Smoking Tobacco: Never Assessed Sex and Gender Information Value Date Recorded Sex Assigned at Not on file Legal Sex Male 9:18 AM TRAM OPERATOR Gender Identity Not on file Sexual Orientation Not on file documented as of this encounter Plan of Treatment Not on file documented as of this encounter Procedures Procedure Name Priority Date/Time Associated Diagnosis Comments CBC WITH DIFFERENTIAL Routine 11/07/2023 4:30 AM TRAM OPERATOR BASIC METABOLIC PANEL Routine 11/07/2023 4:30 AM TRAM OPERATOR documented in this encounter Results * (ABNORMAL) CBC WITH DIFFERENTIAL (11/07/2023 4:30 AM TRAM OPERATOR) WBC 9.4 4.5 - 10.5 K/uL 11/07/2023 8:10 AM TRAM OPERATOR [facility] RBC 4.06(L) 4.50 - 5.40 M/uL 11/07/2023 8:10 AM TRAM OPERATOR [facility] HEMOGLOBIN 11.9(L) 13.6 - 16.5 g/dL 11/07/2023 8:10 AM TRAM OPERATOR [facility] HEMATOCRIT 37.1(L) 40.0 - 48.0 % 11/07/2023 8:10 AM TRAM OPERATOR [facility] MCV 91.5 82.0 - 99.0 fL 11/07/2023 8:10 AM TRAM OPERATOR [facility] MCH 29.4 27.8 - 34.5 pg 11/07/2023 8:10 AM TRAM OPERATOR [facility] MCHC 32.1(L) 32.5 - 35.5 g/dL 11/07/2023 8:10 AM TRAM OPERATOR [facility] RDW 16.9(H) 11.5 - 14.5 % 11/07/2023 8:10 AM TRAM OPERATOR [facility] PLATELETS 270 160 - 420 K/uL 11/07/2023 8:10 AM TRAM OPERATOR [facility] MPV 10.0 8.7 - 12.7 fL 11/07/2023 8:10 AM TRAM OPERATOR [facility] NEUTROPHILS 61 % 11/07/2023 8:10 AM TRAM OPERATOR [facility] LYMPHOCYTES 21 % 11/07/2023 8:10 AM TRAM OPERATOR [facility] MONOCYTES 6 % 11/07/2023 8:10 AM TRAM OPERATOR [facility] EOSINOPHILS 11 % 11/07/2023 8:10 AM TRAM OPERATOR [facility] BASOPHILS 1 % 11/07/2023 8:10 AM TRAM OPERATOR [facility] NEUTROPHIL ABSOLUTE 5.70 1.90 - 7.00 K/uL 11/07/2023 8:10 AM TRAM OPERATOR [facility] LYMPHOCYTE ABSOLUTE 2.00 0.70 - 4.50 K/uL 11/07/2023 8:10 AM TRAM OPERATOR [facility] MONOCYTE ABSOLUTE 0.60 0.10 - 1.30 K/uL 11/07/2023 8:10 AM TRAM OPERATOR [facility] EOSINOPHIL ABSOLUTE 1.00(H) 0.00 - 0.70 K/uL 11/07/2023 8:10 AM TRAM OPERATOR [facility] BASOPHILS ABSOLUTE 0.10 0.00 - 0.20 K/uL 11/07/2023 8:10 AM [facility] Blood 11/07/2023 4:30 AM TRAM OPERATOR 11/07/2023 8:06 AM TRAM OPERATOR us Erik Chairez MD HEMATOLOGY ORDERABLES Final Resu lt [facility] CLIA# [id number] [place] [address] * (ABNORMAL) BASIC METABOLIC PANEL (11/07/2023 4:30 AM TRAM OPERATOR) SODIUM 137 136 - 145 mmol/L 11/07/2023 8:41 AM [facility] POTASSIUM 4.2 3.4 - 5.1 mmol/L 11/07/2023 8:41 AM [facility] CHLORIDE 100 98 - 107 mmol/L 11/07/2023 8:41 AM [facility] CO2 22 22 - 29 mmol/L 11/07/2023 8:41 AM [facility] CALCIUM 9.9 8.6 - 10.4 mg/dL 11/07/2023 8:41 AM [facility] BUN 41(H) 6 - 20 mg/dL 11/07/2023 8:41 AM [facility] CREATININE 1.03 0.67 - 1.17 mg/dL 11/07/2023 8:41 AM [facility] Comment:The GFR result is no t clinically significant on patients <18 or >70 years of age. GLUCOSE 109(H) 74 - 99 mg/dL 11/07/2023 8:41 AM [facility] GFR >60 mL/min/1.7 3 sq meter 11/07/2023 8:41 AM [facility] Comment:eGFR calculated with 2020 CKD-EPI equation. Vegetarian diet, extremely high or low muscle mass, and may affect results. Cystatin C with Glomerular Filtration Rate is a suitable alternative for these patients. 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
--- OUTSIDE RECORDS SUMMARY | 2025-04-30 09:52 | XMS_ITS | Encounter Summary ---
Author Organization [facility] Address [address] [place] [address] Care Team Providers Care Filler In Name Role Phone Unavailable Primary Care Provider Unavailabl e Encounter Details Date Type Department Care Team (Late st Contact Info) Description 11/01/2023 Lab Requisition [facility] Laboratory Services [address] [place] [address] [place] [id number] [place] [address] Social History Tobacco Use Types Packs/Day Years Used Date Smoking Tobacco: Never Assessed Sex and Gender Information Value Date Recorded Sex Assigned at Not on file Legal Sex Male 9:18 AM PROCESS VALIDATION ENGINEER Gender Identity Not on file Sexual Orientation Not on file documented as of this encounter Plan of Treatment Not on file documented as of this encounter Procedures Procedure Name Priority Date/Time Associated Diagnosis Comments CBC WITH DIFFERENTIAL Routine 11/01/2023 4:20 AM PROCESS VALIDATION ENGINEER BASIC METABOLIC PANEL Routine 11/01/2023 4:20 AM PROCESS VALIDATION ENGINEER documented in this encounter Results * (ABNORMAL) CBC WITH DIFFERENTIAL (11/01/2023 4:20 AM PROCESS VALIDATION ENGINEER) WBC 8.5 4.5 - 10.5 K/uL 11/01/2023 8:48 AM PROCESS VALIDATION ENGINEER [facility] RBC 3.87(L) 4.50 - 5.40 M/uL 11/01/2023 8:48 AM PROCESS VALIDATION ENGINEER [facility] HEMOGLOBIN 11.2(L) 13.6 - 16.5 g/dL 11/01/2023 8:48 AM PROCESS VALIDATION ENGINEER [facility] HEMATOCRIT 34.9(L) 40.0 - 48.0 % 11/01/2023 8:48 AM PROCESS VALIDATION ENGINEER [facility] MCV 90.3 82.0 - 99.0 fL 11/01/2023 8:48 AM PROCESS VALIDATION ENGINEER [facility] MCH 29.0 27.8 - 34.5 pg 11/01/2023 8:48 AM PROCESS VALIDATION ENGINEER [facility] MCHC 32.1(L) 32.5 - 35.5 g/dL 11/01/2023 8:48 AM PROCESS VALIDATION ENGINEER [facility] RDW 17.0(H) 11.5 - 14.5 % 11/01/2023 8:48 AM PROCESS VALIDATION ENGINEER [facility] PLATELETS 246 160 - 420 K/uL 11/01/2023 8:48 AM PROCESS VALIDATION ENGINEER [facility] MPV 9.7 8.7 - 12.7 fL 11/01/2023 8:48 AM PROCESS VALIDATION ENGINEER [facility] NEUTROPHILS 53 % 11/01/2023 8:48 AM PROCESS VALIDATION ENGINEER [facility] LYMPHOCYTES 29 % 11/01/2023 8:48 AM PROCESS VALIDATION ENGINEER [facility] MONOCYTES 7 % 11/01/2023 8:48 AM PROCESS VALIDATION ENGINEER [facility] EOSINOPHILS 12 % 11/01/2023 8:48 AM PROCESS VALIDATION ENGINEER [facility] BASOPHILS 1 % 11/01/2023 8:48 AM PROCESS VALIDATION ENGINEER [facility] NEUTROPHIL ABSOLUTE 4.50 1.90 - 7.00 K/uL 11/01/2023 8:48 AM PROCESS VALIDATION ENGINEER [facility] LYMPHOCYTE ABSOLUTE 2.40 0.70 - 4.50 K/uL 11/01/2023 8:48 AM PROCESS VALIDATION ENGINEER [facility] MONOCYTE ABSOLUTE 0.60 0.10 - 1.30 K/uL 11/01/2023 8:48 AM PROCESS VALIDATION ENGINEER [facility] EOSINOPHIL ABSOLUTE 1.00(H) 0.00 - 0.70 K/uL 11/01/2023 8:48 AM PROCESS VALIDATION ENGINEER [facility] BASOPHILS ABSOLUTE 0.00 0.00 - 0.20 K/uL 11/01/2023 8:48 AM [facility] Blood Collection / Unknown 11/01/2023 4:20 AM PROCESS VALIDATION ENGINEER 11/01/2023 7:57 AM PROCESS VALIDATION ENGINEER Erik Chairez MD HEMATOLOGY ORDERABLES Final Resu lt [facility] CLIA# [id number] [place] [address] * (ABNORMAL) BASIC METABOLIC PANEL (11/01/2023 4:20 AM PROCESS VALIDATION ENGINEER) SODIUM 139 136 - 145 mmol/L 11/01/2023 9:12 AM [facility] POTASSIUM 3.7 3.4 - 5.1 mmol/L 11/01/2023 9:12 AM [facility] CHLORIDE 100 98 - 107 mmol/L 11/01/2023 9:12 AM [facility] CO2 27 22 - 29 mmol/L 11/01/2023 9:12 AM [facility] CALCIUM 9.8 8.6 - 10.4 mg/dL 11/01/2023 9:12 AM [facility] BUN 41(H) 6 - 20 mg/dL 11/01/2023 9:12 AM [facility] CREATININE 0.93 0.67 - 1.17 mg/dL 11/01/2023 9:12 AM [facility] Comment:The GFR result is no t clinically significant on patients <18 or >70 years of age. GLUCOSE 109(H) 74 - 99 mg/dL 11/01/2023 9:12 AM [facility] GFR >60 mL/min/1.7 3 sq meter 11/01/2023 9:12 AM [facility] Comment:eGFR calculated with 2020 CKD-EPI equation. Vegetarian diet, extremely high or low muscle mass, and may affect results. Cystatin C with Glomerular Filtration Rate is a suitable alternative for these patients. ANION GAP 12 8 - 16 mmol/L 11/01/2023 9:12 AM PROCESS VALIDATION ENGINEER [facility] Blood Collection / Unknown 11/01/2023 4:20 AM PROCESS VALIDATION ENGINEER 11/01/2023 7:57 AM PROCESS VALIDATION ENGINEER Erik Chairez MD CHEMISTRY ORDERABLES Final Resul t [facility] CLIA# [id number] [place] [address] documented in this encounter Visit Diagnoses Not on filedocumented in this encounter Additional Health Concerns Infection Onset Date Last Indicated Resolved Time 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
--- OUTSIDE RECORDS SUMMARY | 2025-04-30 09:52 | XMS_ITS | Encounter Summary ---
Author Organization [facility] Address [address] [place] [address] Care Team Providers Care Supervisor Machine Workers Name Role Phone Unavailable Primary Care Provider Unavailabl e Encounter Details Date Type Department Care Team (Late st Contact Info) Description 11/10/2023 Lab Requisition [facility] Laboratory Services [address] [place] [address] [place] [id number] [place] [address] Social History Tobacco Use Types Packs/Day Years Used Date Smoking Tobacco: Never Assessed Sex and Gender Information Value Date Recorded Sex Assigned at Not on file Legal Sex Male 9:18 AM RADIAGRAPH OPERATOR Gender Identity Not on file Sexual Orientation Not on file documented as of this encounter Plan of Treatment Not on file documented as of this encounter Procedures Procedure Name Priority Date/Time Associated Diagnosis Comments CBC WITH DIFFERENTIAL Routine 11/10/2023 6:10 AM RADIAGRAPH OPERATOR BASIC METABOLIC PANEL Routine 11/10/2023 6:10 AM RADIAGRAPH OPERATOR documented in this encounter Results * (ABNORMAL) CBC WITH DIFFERENTIAL (11/10/2023 6:10 AM RADIAGRAPH OPERATOR) WBC 7.9 4.5 - 10.5 K/uL 11/10/2023 6:55 AM RADIAGRAPH OPERATOR [facility] - [facility] RBC 3.65(L) 4.50 - 5.40 M/uL 11/10/2023 6:55 AM RADIAGRAPH OPERATOR [facility] - [facility] HEMOGLOBIN 10.8(L) 13.6 - 16.5 g/dL 11/10/2023 6:55 AM RADIAGRAPH OPERATOR [facility] - [facility] HEMATOCRIT 33.6(L) 40.0 - 48.0 % 11/10/2023 6:55 AM RADIAGRAPH OPERATOR [facility] MCV 92.0 82.0 - 99.0 fL 11/10/2023 6:55 AM RADIAGRAPH OPERATOR [facility] MCH 29.7 27.8 - 34.5 pg 11/10/2023 6:55 AM RADIAGRAPH OPERATOR [facility] MCHC 32.2(L) 32.5 - 35.5 g/dL 11/10/2023 6:55 AM RADIAGRAPH OPERATOR [facility] RDW 17.0(H) 11.5 - 14.5 % 11/10/2023 6:55 AM RADIAGRAPH OPERATOR [facility] PLATELETS 251 160 - 420 K/uL 11/10/2023 6:55 AM RADIAGRAPH OPERATOR [facility] MPV 9.2 8.7 - 12.7 fL 11/10/2023 6:55 AM RADIAGRAPH OPERATOR [facility] NEUTROPHILS 62 % 11/10/2023 6:55 AM RADIAGRAPH OPERATOR [facility] LYMPHOCYTES 22 % 11/10/2023 6:55 AM RADIAGRAPH OPERATOR [facility] MONOCYTES 5 % 11/10/2023 6:55 AM RADIAGRAPH OPERATOR [facility] EOSINOPHILS 10 % 11/10/2023 6:55 AM RADIAGRAPH OPERATOR [facility] BASOPHILS 1 % 11/10/2023 6:55 AM RADIAGRAPH OPERATOR [facility] NEUTROPHIL ABSOLUTE 4.90 1.90 - 7.00 K/uL 11/10/2023 6:55 AM RADIAGRAPH OPERATOR [facility] LYMPHOCYTE ABSOLUTE 1.70 0.70 - 4.50 K/uL 11/10/2023 6:55 AM RADIAGRAPH OPERATOR [facility] MONOCYTE ABSOLUTE 0.40 0.10 - 1.30 K/uL 11/10/2023 6:55 AM RADIAGRAPH OPERATOR [facility] EOSINOPHIL ABSOLUTE 0.80(H) 0.00 - 0.70 K/uL 11/10/2023 6:55 AM RADIAGRAPH OPERATOR [facility] BASOPHILS ABSOLUTE 0.10 0.00 - 0.20 K/uL 11/10/2023 6:55 AM [facility] Blood 11/10/2023 6:10 AM RADIAGRAPH OPERATOR 11/10/2023 6:41 AM RADIAGRAPH OPERATOR Erik Chairez MD HEMATOLOGY ORDERABLES Final Resu lt [facility] CLIA# [id number] [place] [address] * (ABNORMAL) BASIC METABOLIC PANEL (11/10/2023 6:10 AM RADIAGRAPH OPERATOR) SODIUM 139 136 - 145 mmol/L 11/10/2023 7:14 AM [facility] POTASSIUM 4.2 3.4 - 5.1 mmol/L 11/10/2023 7:14 AM [facility] CHLORIDE 103 98 - 107 mmol/L 11/10/2023 7:14 AM [facility] CO2 26 22 - 29 mmol/L 11/10/2023 7:14 AM [facility] CALCIUM 9.4 8.6 - 10.4 mg/dL 11/10/2023 7:14 AM [facility] BUN 39(H) 6 - 20 mg/dL 11/10/2023 7:14 AM [facility] CREATININE 0.98 0.67 - 1.17 mg/dL 11/10/2023 7:14 AM [facility] Comment:The GFR result is no t clinically significant on patients <18 or >70 years of age. GLUCOSE 111(H) 74 - 99 mg/dL 11/10/2023 7:14 AM [facility] GFR >60 mL/min/1.7 3 sq meter 11/10/2023 7:14 AM [facility] Comment:eGFR calculated with 2020 CKD-EPI equation. Vegetarian diet, extremely high or low muscle mass, and may affect results. Cystatin C with Glomerular Filtration Rate is a suitable alternative for these patients. 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
--- OUTSIDE RECORDS SUMMARY | 2025-04-30 09:52 | XMS_ITS | Encounter Summary ---
Author Organization [facility] Address [address] [place] [address] Care Team Providers Care Police District Switchboard Operator Name Role Phone Unavailable Primary Care Provider Unavailabl e Encounter Details Date Type Department Care Team (Late st Contact Info) Description 11/04/2023 Lab Requisition [facility] Laboratory Services [address] [place] [address] [place] [address] [place] [address] Social History Tobacco Use Types Packs/Day Years Used Date Smoking Tobacco: Never Assessed Sex and Gender Information Value Date Recorded Sex Assigned at Not on file Legal Sex Male 9:18 AM GIS MANAGER Gender Identity Not on file Sexual Orientation Not on file documented as of this encounter Plan of Treatment Not on file documented as of this encounter Procedures Procedure Name Priority Date/Time Associated Diagnosis Comments CBC WITH DIFFERENTIAL Routine 11/04/2023 3:45 AM GIS MANAGER BASIC METABOLIC PANEL Routine 11/04/2023 3:45 AM GIS MANAGER documented in this encounter Results * (ABNORMAL) CBC WITH DIFFERENTIAL (11/04/2023 3:45 AM GIS MANAGER) WBC 12.2(H) 4.5 - 10.5 K/uL 11/04/2023 8:52 AM GIS MANAGER [facility] - [facility] RBC 4.11(L) 4.50 - 5.40 M/uL 11/04/2023 8:52 AM GIS MANAGER [facility] - [facility] HEMOGLOBIN 11.7(L) 13.6 - 16.5 g/dL 11/04/2023 8:52 AM GIS MANAGER [facility] HEMATOCRIT 37.9(L) 40.0 - 48.0 % 11/04/2023 8:52 AM GIS MANAGER [facility] LABORATORY SERVICES [facility] MCV 92.2 82.0 - 99.0 fL 11/04/2023 8:52 AM GIS MANAGER [facility] MCH 28.5 27.8 - 34.5 pg 11/04/2023 8:52 AM GIS MANAGER [facility] LABORATORY SERVICES [facility] MCHC 30.9(L) 32.5 - 35.5 g/dL 11/04/2023 8:52 AM GIS MANAGER [facility] LABORATORY SERVICES [facility] RDW 17.0(H) 11.5 - 14.5 % 11/04/2023 8:52 AM GIS MANAGER [facility] LABORATORY SERVICES [facility] PLATELETS 272 160 - 420 K/uL 11/04/2023 8:52 AM GIS MANAGER [facility] LABORAT[facility] SERVICES [facility] MPV 10.0 8.7 - 12.7 fL 11/04/2023 8:52 AM GIS MANAGER [facility]ORAT[facility] SERVICES [facility] NEUTROPHILS 45 % 11/04/2023 8:52 AM GIS MANAGER [facility]ORAT[facility] SERVICES [facility] LYMPHOCYTES 38 % 11/04/2023 8:52 AM GIS MANAGER [facility]ORAT[facility] SERVICES [facility] MONOCYTES 7 % 11/04/2023 8:52 AM GIS MANAGER [facility] SERVICES [facility] EOSINOPHILS 11 % 11/04/2023 8:52 AM GIS MANAGER [facility]ORAT[facility] SERVICES [facility] BASOPHILS 1 % 11/04/2023 8:52 AM GIS MANAGER [facility] NEUTROPHIL ABSOLUTE 5.50 1.90 - 7.00 K/uL 11/04/2023 8:52 AM GIS MANAGER [facility] LABORATORY SERVICES [facility] LYMPHOCYTE ABSOLUTE 4.60(H) 0.70 - 4.50 K/uL 11/04/2023 8:52 AM GIS MANAGER [facility] LABORATORY SERVICES [facility] MONOCYTE ABSOLUTE 0.80 0.10 - 1.30 K/uL 11/04/2023 8:52 AM GIS MANAGER [facility]ORATORY SERVICES [facility] EOSINOPHIL ABSOLUTE 1.30(H) 0.00 - 0.70 K/uL 11/04/2023 8:52 AM GIS MANAGER [facility] LABORATORY SERVICES [facility] BASOPHILS ABSOLUTE 0.10 0.00 - 0.20 K/uL 11/04/2023 8:52 AM [facility] [employer] [facility] Blood 11/04/2023 3:45 AM GIS MANAGER 11/04/2023 8:24 AM GIS MANAGER Erik Chairez MD HEMATOLOGY ORDERABLES Final Resu lt [facility] CLIA# [id number] [place] [address] * (ABNORMAL) BASIC METABOLIC PANEL (11/04/2023 3:45 AM GIS MANAGER) SODIUM 144 136 - 145 mmol/L 11/04/2023 9:49 AM [facility] POTASSIUM 5.3(H) 3.4 - 5.1 mmol/L 11/04/2023 9:49 AM [facility] CHLORIDE 103 98 - 107 mmol/L 11/04/2023 9:49 AM [facility] CO2 26 22 - 29 mmol/L 11/04/2023 9:49 AM [facility] CALCIUM 10.7(H) 8.6 - 10.4 mg/dL 11/04/2023 9:49 AM [facility] BUN 38(H) 6 - 20 mg/dL 11/04/2023 9:49 AM [facility] CREATININE 0.95 0.67 - 1.17 mg/dL 11/04/2023 9:49 AM [facility] Comment:The GFR result is no t clinically significant on patients <18 or >70 years of age. GLUCOSE 114(H) 74 - 99 mg/dL 11/04/2023 9:49 AM [facility] GFR >60 mL/min/1.7 3 sq meter 11/04/2023 9:49 AM [facility] Comment:eGFR calculated with 2020 CKD-EPI equation. Vegetarian diet, extremely high or low muscle mass, and may affect results. Cystatin C with Glomerular Filtration Rate is a suitable alternative for these patients. 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
--- OUTSIDE RECORDS SUMMARY | 2025-04-30 09:52 | XMS_ITS | Encounter Summary ---
Author Organization [facility] Address [address] [place] [address] Care Team Providers Care Cutter V Groove Name Role Phone Unavailable Primary Care Provider Unavailabl e Encounter Details Date Type Department Care Team (Late st Contact Info) Description 10/23/2023 Lab Requisition [facility] Laboratory Services [address] [place] [address] [place] [address] [place] [address] Social History Tobacco Use Types Packs/Day Years Used Date Smoking Tobacco: Never Assessed Sex and Gender Information Value Date Recorded Sex Assigned at Not on file Legal Sex Male 9:18 AM EARLY CHILDHOOD EDUCATION INSTRUCTOR Gender Identity Not on file Sexual Orientation Not on file documented as of this encounter Plan of Treatment Not on file documented as of this encounter Procedures Procedure Name Priority Date/Time Associated Diagnosis Comments CBC WITH DIFFERENTIAL Routine 10/23/2023 2:45 AM EARLY CHILDHOOD EDUCATION INSTRUCTOR BASIC METABOLIC PANEL Routine 10/23/2023 2:45 AM EARLY CHILDHOOD EDUCATION INSTRUCTOR documented in this encounter Results * (ABNORMAL) CBC WITH DIFFERENTIAL (10/23/2023 2:45 AM EARLY CHILDHOOD EDUCATION INSTRUCTOR) WBC 12.7(H) 4.5 - 10.5 K/uL 10/23/2023 11:15 AM EARLY CHILDHOOD EDUCATION INSTRUCTOR [facility] - [facility] RBC 4.12(L) 4.50 - 5.40 M/uL 10/23/2023 11:15 AM EARLY CHILDHOOD EDUCATION INSTRUCTOR [facility] - [facility] HEMOGLOBIN 12.2(L) 13.6 - 16.5 g/dL 10/23/2023 11:15 AM EARLY CHILDHOOD EDUCATION INSTRUCTOR [facility] HEMATOCRIT 38.7(L) 40.0 - 48.0 % 10/23/2023 11:15 AM EARLY CHILDHOOD EDUCATION INSTRUCTOR [facility] - [facility] MCV 94.0 82.0 - 99.0 fL 10/23/2023 11:15 AM EARLY CHILDHOOD EDUCATION INSTRUCTOR [facility] MCH 29.7 27.8 - 34.5 pg 10/23/2023 11:15 AM EARLY CHILDHOOD EDUCATION INSTRUCTOR [facility] MCHC 31.6(L) 32.5 - 35.5 g/dL 10/23/2023 11:15 AM EARLY CHILDHOOD EDUCATION INSTRUCTOR [facility] RDW 17.3(H) 11.5 - 14.5 % 10/23/2023 11:15 AM EARLY CHILDHOOD EDUCATION INSTRUCTOR [facility] PLATELETS 264 160 - 420 K/uL 10/23/2023 11:15 AM EARLY CHILDHOOD EDUCATION INSTRUCTOR [facility] MPV 9.6 8.7 - 12.7 fL 10/23/2023 11:15 AM EARLY CHILDHOOD EDUCATION INSTRUCTOR [facility] NEUTROPHILS 67 % 10/23/2023 11:15 AM EARLY CHILDHOOD EDUCATION INSTRUCTOR [facility] LYMPHOCYTES 20 % 10/23/2023 11:15 AM EARLY CHILDHOOD EDUCATION INSTRUCTOR [facility] MONOCYTES 5 % 10/23/2023 11:15 AM EARLY CHILDHOOD EDUCATION INSTRUCTOR [facility] EOSINOPHILS 8 % 10/23/2023 11:15 AM EARLY CHILDHOOD EDUCATION INSTRUCTOR [facility] BASOPHILS 1 % 10/23/2023 11:15 AM EARLY CHILDHOOD EDUCATION INSTRUCTOR [facility] NEUTROPHIL ABSOLUTE 8.50(H) 1.90 - 7.00 K/uL 10/23/2023 11:15 AM EARLY CHILDHOOD EDUCATION INSTRUCTOR [facility] LYMPHOCYTE ABSOLUTE 2.50 0.70 - 4.50 K/uL 10/23/2023 11:15 AM EARLY CHILDHOOD EDUCATION INSTRUCTOR [facility] MONOCYTE ABSOLUTE 0.60 0.10 - 1.30 K/uL 10/23/2023 11:15 AM EARLY CHILDHOOD EDUCATION INSTRUCTOR [facility] EOSINOPHIL ABSOLUTE 1.00(H) 0.00 - 0.70 K/uL 10/23/2023 11:15 AM EARLY CHILDHOOD EDUCATION INSTRUCTOR [facility] BASOPHILS ABSOLUTE 0.10 0.00 - 0.20 K/uL 10/23/2023 11:15 AM [facility] Blood Collection / Unknown 10/23/2023 2:45 AM EARLY CHILDHOOD EDUCATION INSTRUCTOR 10/23/2023 10:44 AM EARLY CHILDHOOD EDUCATION INSTRUCTOR Erik Chairez MD HEMATOLOGY ORDERABLES Final Resu lt [facility] CLIA# [id number] [place] [address] * (ABNORMAL) BASIC METABOLIC PANEL (10/23/2023 2:45 AM EARLY CHILDHOOD EDUCATION INSTRUCTOR) SODIUM 139 136 - 145 mmol/L 10/23/2023 [...] 8 - 16 mmol/L 10/23/2023 11:42 AM EARLY CHILDHOOD EDUCATION INSTRUCTOR [facility] Blood Collection / Unknown 10/23/2023 2:45 AM EARLY CHILDHOOD EDUCATION INSTRUCTOR 10/23/2023 10:44 AM EARLY CHILDHOOD EDUCATION INSTRUCTOR Erik Chairez MD CHEMISTRY ORDERABLES Final Resul t [facility] CLIA# [id number] [place] [address] documented in this encounter Visit Diagnoses Not on filedocumented in this encounter Additional Health Concerns Infection Onset Date Last Indicated Resolved Time CRE-CP Comment:10/09/23 Klebsiella pneumoniae, Sputum 10/09/2023 10/09/2023 05/28/2024 2:37 PM C DT 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
--- OUTSIDE RECORDS SUMMARY | 2025-04-30 09:52 | XMS_ITS | Encounter Summary ---
Author Organization [facility] Address [address] [place] [address] Care Team Providers Care Ticket Taker Ferryboat Name Role Phone Unavailable Primary Care Provider Unavailabl e Encounter Details Date Type Department Care Team (Late st Contact Info) Description 10/29/2023 Lab Requisition [facility] Laboratory Services [address] [place] [address] [place] [address] [place] [address] Social History Tobacco Use Types Packs/Day Years Used Date Smoking Tobacco: Never Assessed Sex and Gender Information Value Date Recorded Sex Assigned at Not on file Legal Sex Male 9:18 AM RIVET CATCHER Gender Identity Not on file Sexual Orientation Not on file documented as of this encounter Plan of Treatment Not on file documented as of this encounter Procedures Procedure Name Priority Date/Time Associated Diagnosis Comments CBC WITH DIFFERENTIAL Routine 10/29/2023 3:20 AM RIVET CATCHER BASIC METABOLIC PANEL Routine 10/29/2023 3:20 AM RIVET CATCHER documented in this encounter Results * (ABNORMAL) CBC WITH DIFFERENTIAL (10/29/2023 3:20 AM RIVET CATCHER) WBC 8.0 4.5 - 10.5 K/uL 10/29/2023 8:18 AM RIVET CATCHER [facility] LABORATORY SERVICES - [facility] RBC 3.85(L) 4.50 - 5.40 M/uL 10/29/2023 8:18 AM RIVET CATCHER [facility] LABORATORY [facility] HEMOGLOBIN 11.6(L) 13.6 - 16.5 g/dL 10/29/2023 8:18 AM RIVET CATCHER [facility] LABORATORY [facility] - [facility] HEMATOCRIT 35.7(L) 40.0 - 48.0 % 10/29/2023 8:18 AM RIVET CATCHER [facility] LABORATORY SERVICES [facility] MCV 92.6 82.0 - 99.0 fL 10/29/2023 8:18 AM RIVET CATCHER [facility] LABORATORY SERVICES - [facility] MCH 30.0 27.8 - 34.5 pg 10/29/2023 8:18 AM RIVET CATCHER [facility] LABORATORY SERVICES [facility] MCHC 32.4(L) 32.5 - 35.5 g/dL 10/29/2023 8:18 AM RIVET CATCHER [facility] LABORATORY SERVICES [facility] RDW 17.3(H) 11.5 - 14.5 % 10/29/2023 8:18 AM RIVET CATCHER [facility] LABORATORY SERVICES [facility] PLATELETS 255 160 - 420 K/uL 10/29/2023 8:18 AM RIVET CATCHER [facility] LABORATORY SERVICES [facility] MPV 9.9 8.7 - 12.7 fL 10/29/2023 8:18 AM RIVET CATCHER [facility] LABORATORY SERVICES [facility] NEUTROPHILS 61 % 10/29/2023 8:18 AM RIVET CATCHER [facility] LABORATORY SERVICES [facility] LYMPHOCYTES 22 % 10/29/2023 8:18 AM RIVET CATCHER [facility] MONOCYTES 6 % 10/29/2023 8:18 AM RIVET CATCHER [facility] EOSINOPHILS 11 % 10/29/2023 8:18 AM RIVET CATCHER [facility] LABORATORY SERVICES [facility] BASOPHILS 1 % 10/29/2023 8:18 AM RIVET CATCHER [facility] LABORATORY SERVICES [facility] NEUTROPHIL ABSOLUTE 4.90 1.90 - 7.00 K/uL 10/29/2023 8:18 AM RIVET CATCHER [facility] LABORATORY SERVICES [facility] LYMPHOCYTE ABSOLUTE 1.70 0.70 - 4.50 K/uL 10/29/2023 8:18 AM RIVET CATCHER [facility] LAB[facility] SERVICES [facility] MONOCYTE ABSOLUTE 0.50 0.10 - 1.30 K/uL 10/29/2023 8:18 AM RIVET CATCHER [facility] LABORATORY SERVICES [facility] EOSINOPHIL ABSOLUTE 0.80(H) 0.00 - 0.70 K/uL 10/29/2023 8:18 AM RIVET CATCHER [facility] LABORATORY SERVICES [facility] BASOPHILS ABSOLUTE 0.00 0.00 - 0.20 K/uL 10/29/2023 8:18 AM [facility] Blood Collection / Unknown 10/29/2023 3:20 AM RIVET CATCHER 10/29/2023 7:59 AM RIVET CATCHER Erik Chairez MD HEMATOLOGY ORDERABLES Final Resu lt [facility] CLIA# [id number] [place] [address] * (ABNORMAL) BASIC METABOLIC PANEL (10/29/2023 3:20 AM RIVET CATCHER) SODIUM 141 136 - 145 mmol/L 10/29/2023 8:38 AM [facility] POTASSIUM 4.5 3.4 - 5.1 mmol/L 10/29/2023 8:38 AM [facility] CHLORIDE 101 98 - 107 mmol/L 10/29/2023 8:38 AM [facility] CO2 28 22 - 29 mmol/L 10/29/2023 8:38 AM [facility] CALCIUM 10.2 8.6 - 10.4 mg/dL 10/29/2023 8:38 AM [facility] BUN 42(H) 6 - 20 mg/dL 10/29/2023 8:38 AM [facility] CREATININE 1.05 0.67 - 1.17 mg/dL 10/29/2023 8:38 AM [facility] Comment:The GFR result is no t clinically significant on patients <18 or >70 years of age. GLUCOSE 112(H) 74 - 99 mg/dL 10/29/2023 8:38 AM [facility] GFR >60 mL/min/1.7 3 sq meter 10/29/2023 8:38 AM [facility] Comment:eGFR calculated with 2020 CKD-EPI equation. Vegetarian diet, extremely high or low muscle mass, and may affect results. Cystatin C with Glomerular Filtration Rate is a suitable alternative for these patients. ANION GAP 12 8 - 16 mmol/L 10/29/2023 8:38 AM RIVET CATCHER [facility] LABORATORY SERVICES [facility] Blood Collection / Unknown 10/29/2023 3:20 AM RIVET CATCHER 10/29/2023 7:59 AM RIVET CATCHER Erik Chairez MD CHEMISTRY ORDERABLES Final Resul t [facility] LABORATORY SERVICES [facility] CLIA# [id number] [place] [address] documented in this encounter Visit Diagnoses Not on filedocumented in this encounter Additional Health Concerns Infection Onset Date Last Indicated Resolved Time CRE-CP Comment: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
--- OUTSIDE RECORDS SUMMARY | 2025-04-30 09:52 | XMS_ITS | Encounter Summary ---
Author Organization [facility] Address [address] [place] [address] Care Team Providers Care Range Conservationist Name Role Phone Unavailable Primary Care Provider Unavailabl e Encounter Details Date Type Department Care Team (Late st Contact Info) Description 11/07/2023 Lab Requisition [facility] Laboratory Services [address] [place] [address] [place] [address] [place] [address] Social History Tobacco Use Types Packs/Day Years Used Date Smoking Tobacco: Never Assessed Sex and Gender Information Value Date Recorded Sex Assigned at Not on file Legal Sex Male 9:18 AM CORPORATE PARALEGAL Gender Identity Not on file Sexual Orientation Not on file documented as of this encounter Plan of Treatment Not on file documented as of this encounter Procedures Procedure Name Priority Date/Time Associated Diagnosis Comments THEOPHYLLINE LEVEL Routine 11/07/2023 8: 40 AM CORPORATE PARALEGAL documented in this encounter Results * (ABNORMAL) THEOPHYLLINE LEVEL (11/07/2023 8:40 AM CORPORATE PARALEGAL) THEOPHYLLINE LEVEL <0.8(L) 10.0 - 20.0 ug/mL 11/07/2023 3:56 PM CORPORATE PARALEGAL [facility] LABORATORY SERVICES [facility] Comment:Verified by repeat a nalysis. TDM LAST DATE, TIME, AMT (TIFFANIE) Patient unable to state date. time or dose. 11/07/2023 3:56 PM CORPORATE PARALEGAL [facility] LABORATORY SERVICES [facility] LAST DOSE AMT, THEOPHYLLINE Other 11/07/2023 3:56 PM CORPORATE PARALEGAL [facility] LABORATORY SERVICES [facility] Comment:80 mg Blood 11/07/2023 8:40 AM CORPORATE PARALEGAL 11/07/2023 10:34 AM CORPORATE PARALEGAL Narrative [facility] LABORATORY [facility] - 11/07/2023 3:56 PM CORPORATE PARALEGAL Theophylline Toxic Levels: 6 months - Adult = >20.0 ug/mL 0 - 6 months = >15.0 ug/mL Erik Chairez MD CHEMISTRY ORDERABLES Final Resul t [facility] LABORATORY [facility] CLIA# [id number] [address] [place] [address] [facility] LABORATORY [facility] CLIA# [id number] [address] [place] [address] documented in this encounter Visit Diagnoses Not on filedocumented in this encounter Additional Health Concerns Infection Onset Date Last Indicated Resolved Time CRE-CP Comment: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
--- OUTSIDE RECORDS SUMMARY | 2025-04-30 09:52 | XMS_ITS | Encounter Summary ---
Author Organization [facility] Address [address] [place] [address] Care Team Providers Care Pumper Gauger Apprentice Name Role Phone Unavailable Primary Care Provider Unavailabl e Encounter Details Date Type Department Care Team (Late st Contact Info) Description 10/26/2023 Lab Requisition [facility] Laboratory Services [address] [place] [address] [place] [address] [place] [address] Social History Tobacco Use Types Packs/Day Years Used Date Smoking Tobacco: Never Assessed Sex and Gender Information Value Date Recorded Sex Assigned at Not on file Legal Sex Male 9:18 AM CHIEF NURSING OFFICER Gender Identity Not on file Sexual Orientation Not on file documented as of this encounter Plan of Treatment Not on file documented as of this encounter Procedures Procedure Name Priority Date/Time Associated Diagnosis Comments CBC WITH DIFFERENTIAL Routine 10/26/2023 3:20 AM CHIEF NURSING OFFICER BASIC METABOLIC PANEL Routine 10/26/2023 3:20 AM CHIEF NURSING OFFICER documented in this encounter Results * (ABNORMAL) CBC WITH DIFFERENTIAL (10/26/2023 3:20 AM CHIEF NURSING OFFICER) WBC 9.2 4.5 - 10.5 K/uL 10/26/2023 5:32 AM CHIEF NURSING OFFICER [facility] LABORATORY SERVICES - [facility] RBC 3.83(L) 4.50 - 5.40 M/uL 10/26/2023 5:32 AM CHIEF NURSING OFFICER [facility] LABORATORY [facility] - [facility] HEMOGLOBIN 11.4(L) 13.6 - 16.5 g/dL 10/26/2023 5:32 AM CHIEF NURSING OFFICER [facility] LABORATORY SERVICES - [facility] HEMATOCRIT 35.4(L) 40.0 - 48.0 % 10/26/2023 5:32 AM CHIEF NURSING OFFICER [facility] LABORATORY SERVICES [facility] MCV 92.4 82.0 - 99.0 fL 10/26/2023 5:32 AM CHIEF NURSING OFFICER [facility] LABORATORY SERVICES - [facility] MCH 29.6 27.8 - 34.5 pg 10/26/2023 5:32 AM CHIEF NURSING OFFICER [facility] LABORATORY SERVICES [facility] MCHC 32.0(L) 32.5 - 35.5 g/dL 10/26/2023 5:32 AM CHIEF NURSING OFFICER [facility] LABORATORY SERVICES [facility] RDW 17.3(H) 11.5 - 14.5 % 10/26/2023 5:32 AM CHIEF NURSING OFFICER [facility] LABORATORY SERVICES [facility] PLATELETS 240 160 - 420 K/uL 10/26/2023 5:32 AM CHIEF NURSING OFFICER [facility] LABORATORY SERVICES [facility] MPV 9.3 8.7 - 12.7 fL 10/26/2023 5:32 AM CHIEF NURSING OFFICER [facility] LABORATORY SERVICES [facility] NEUTROPHILS 69 % 10/26/2023 5:32 AM CHIEF NURSING OFFICER [facility] LABORATORY SERVICES [facility] LYMPHOCYTES 21 % 10/26/2023 5:32 AM CHIEF NURSING OFFICER [employer] LABORATORY SERVICES [facility] MONOCYTES 6 % 10/26/2023 5:32 AM CHIEF NURSING OFFICER [facility] LABORATORY SERVICES [facility] EOSINOPHILS 4 % 10/26/2023 5:32 AM CHIEF NURSING OFFICER [facility] LABORATORY SERVICES [facility] BASOPHILS 1 % 10/26/2023 5:32 AM CHIEF NURSING OFFICER [facility] LABORATORY SERVICES [facility] NEUTROPHIL ABSOLUTE 6.30 1.90 - 7.00 K/uL 10/26/2023 5:32 AM CHIEF NURSING OFFICER [facility] LABORATORY SERVICES [facility] LYMPHOCYTE ABSOLUTE 1.90 0.70 - 4.50 K/uL 10/26/2023 5:32 AM CHIEF NURSING OFFICER [facility] MONOCYTE ABSOLUTE 0.50 0.10 - 1.30 K/uL 10/26/2023 5:32 AM CHIEF NURSING OFFICER [facility] LABORATORY SERVICES [facility] EOSINOPHIL ABSOLUTE 0.40 0.00 - 0.70 K/uL 10/26/2023 5:32 AM CHIEF NURSING OFFICER [facility] LABORATORY SERVICES [facility] BASOPHILS ABSOLUTE 0.00 0.00 - 0.20 K/uL 10/26/2023 5:32 AM [facility] Blood Collection / Unknown 10/26/2023 3:20 AM CHIEF NURSING OFFICER 10/26/2023 4:57 AM CHIEF NURSING OFFICER Erik Chairez MD HEMATOLOGY ORDERABLES Final Resu lt [facility] CLIA# [id number] [facility] [place] [address] * (ABNORMAL) BASIC METABOLIC PANEL (10/26/2023 3:20 AM CHIEF NURSING OFFICER) SODIUM 137 136 - 145 mmol/L 10/26/2023 5:58 AM [facility] POTASSIUM 4.2 3.4 - 5.1 mmol/L 10/26/2023 5:58 AM [facility] CHLORIDE 100 98 - 107 mmol/L 10/26/2023 5:58 AM [facility] CO2 27 22 - 29 mmol/L 10/26/2023 5:58 AM [facility] CALCIUM 9.8 8.6 - 10.4 mg/dL 10/26/2023 5:58 AM [facility] BUN 39(H) 6 - 20 mg/dL 10/26/2023 5:58 AM [facility] CREATININE 1.01 0.67 - 1.17 mg/dL 10/26/2023 5:58 AM [facility] Comment:The GFR result is no t clinically significant on patients <18 or >70 years of age. GLUCOSE 110(H) 74 - 99 mg/dL 10/26/2023 5:58 AM [facility] GFR >60 mL/min/1.7 3 sq meter 10/26/2023 5:58 AM [facility] Comment:eGFR calculated with 2020 CKD-EPI equation. Vegetarian diet, extremely high or low muscle mass, and may affect results. Cystatin C with Glomerular Filtration Rate is a suitable alternative for these patients. ANION GAP 10 8 - 16 mmol/L 10/26/2023 5:58 AM CHIEF NURSING OFFICER [facility] LABORATORY SERVICES [facility] Blood Collection / Unknown 10/26/2023 3:20 AM CHIEF NURSING OFFICER 10/26/2023 4:57 AM CHIEF NURSING OFFICER Erik Chairez MD CHEMISTRY ORDERABLES Final Resul t [facility] LABORATORY SERVICES [facility] CLIA# [id number] [address] [place] [address] documented in this encounter Visit Diagnoses Not on filedocumented in this encounter Additional Health Concerns Infection Onset Date Last Indicated Resolved Time CRE-CP Comment:10/09/23 Klebsiella pneumoniae, Sputum 10/09/2023 10/09/2023 05/28/2024 2:37 PM C DT 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
--- OUTSIDE RECORDS SUMMARY | 2025-04-30 09:52 | XMS_ITS | Encounter Summary ---
Author Organization [facility] Address [address] [place] [address] Care Team Providers Care Tin Flopper Name Role Phone Unavailable Primary Care Provider Unavailabl e Encounter Details Date Type Department Care Team (Late st Contact Info) Description 11/05/2023 Lab Requisition [facility] Laboratory Services [address] [place] [address] [place] [address] [place] [address] Social History Tobacco Use Types Packs/Day Years Used Date Smoking Tobacco: Never Assessed Sex and Gender Information Value Date Recorded Sex Assigned at Not on file Legal Sex Male 9:18 AM ELECTRICAL WIRING LINEMAN Gender Identity Not on file Sexual Orientation Not on file documented as of this encounter Plan of Treatment Not on file documented as of this encounter Procedures Procedure Name Priority Date/Time Associated Diagnosis Comments DIFFERENTIAL, MANUAL Routine 11/05/2023 3:30 AM ELECTRICAL WIRING LINEMAN CBC WITH DIFFERENTIAL Routine 11/05/2023 3:30 AM ELECTRICAL WIRING LINEMAN documented in this encounter Results * MANUAL DIFFERENTIAL (11/05/2023 3:30 AM ELECTRICAL WIRING LINEMAN) PLATELET EST. Consistent w Count 11/05/2023 6:05 AM ELECTRICAL WIRING LINEMAN [facility] RBC MORPHOLOGY Normal 11/05/2023 6:05 AM ELECTRICAL WIRING LINEMAN [facility] Blood Collection / Unknown 11/05/2023 3:30 AM ELECTRICAL WIRING LINEMAN 11/05/2023 5:05 AM ELECTRICAL WIRING LINEMAN Erik Chairez MD HEMATOLOGY ORDERABLES COM Final Result [facility] CLIA# [id number] [address] [place] [address] * (ABNORMAL) CBC WITH DIFFERENTIAL (11/05/2023 3:30 AM ELECTRICAL WIRING LINEMAN) [facility] WBC 7.5 4.5 - 10.5 K/uL 11/05/2023 6:05 AM [facility] LABORATORY [facility] RBC 3.81(L) 4.50 - 5.40 M/uL 11/05/2023 6:05 AM [facility] HEMOGLOBIN 11.9(L) 13.6 - 16.5 g/dL 11/05/2023 6:05 AM [facility] HEMATOCRIT 35.6(L) 40.0 - 48.0 % 11/05/2023 6:05 AM [facility] [employer] [facility] MCV 93.5 82.0 - 99.0 fL 11/05/2023 6:05 AM [facility] [employer] [facility] MCH 31.2 27.8 - 34.5 pg 11/05/2023 6:05 AM [facility] [employer] [facility] MCHC 33.3 32.5 - 35.5 g/dL 11/05/2023 6:05 AM [facility] [employer] [facility] RDW 17.0(H) 11.5 - 14.5 % 11/05/2023 6:05 AM [facility] [employer] [facility] PLATELETS 243 160 - 420 K/uL 11/05/2023 6:05 AM [facility] [employer] [facility] MPV 9.4 8.7 - 12.7 fL 11/05/2023 6:05 AM [facility] LABORATORY [facility] NEUTROPHILS 63 % 11/05/2023 6:05 AM ELECTRICAL WIRING LINEMAN [facility] [employer] [facility] LYMPHOCYTES 23 % 11/05/2023 6:05 AM ELECTRICAL WIRING LINEMAN [facility] LABORATORY [facility] MONOCYTES 5 % 11/05/2023 6:05 AM [facility] LABORATORY [facility] EOSINOPHILS 9 % 11/05/2023 6:05 AM ELECTRICAL WIRING LINEMAN [facility] LABORATORY [facility] BASOPHILS 1 % 11/05/2023 6:05 AM ELECTRICAL WIRING LINEMAN [facility] LABORATORY [facility] NEUTROPHIL ABSOLUTE 4.70 1.90 - 7.00 K/uL 11/05/2023 6:05 AM ELECTRICAL WIRING LINEMAN [facility] LABORATORY [facility] LYMPHOCYTE ABSOLUTE 1.70 0.70 - 4.50 K/uL 11/05/2023 6:05 AM ELECTRICAL WIRING LINEMAN [facility] LABORATORY [facility] MONOCYTE ABSOLUTE 0.40 0.10 - 1.30 K/uL 11/05/2023 6:05 AM ELECTRICAL WIRING LINEMAN [facility] LABORATORY [facility] EOSINOPHIL ABSOLUTE 0.70 0.00 - 0.70 K/uL 11/05/2023 6:05 AM ELECTRICAL WIRING LINEMAN [facility] LABORATORY SERVICES - [facility] BASOPHILS ABSOLUTE 0.00 0.00 - 0.20 K/uL 11/05/2023 6:05 AM ELECTRICAL WIRING LINEMAN [facility] LABORATORY [facility] Blood Collection / Unknown 11/05/2023 3:30 AM ELECTRICAL WIRING LINEMAN 11/05/2023 5:05 AM ELECTRICAL WIRING LINEMAN Erik Chairez MD HEMATOLOGY ORDERABLES Final Resu lt [facility] CLIA# [id number] [address] [place] [address] documented in this encounter Visit Diagnoses Not on filedocumented in this encounter Additional Health Concerns Infection Onset Date Last Indicated Resolved Time 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
== END 2025-04-30 12:59 | disposition home or self-care (01) ==
PROVIDERS: Emergency Provider Emergency Medicine; PCP Family Medicine
DX: R19.7 Diarrhea, unspecified (principal); Z79.01 Long term (current) use of anticoagulants; Z79.82 Long term (current) use of aspirin; I50.32 Chronic diastolic (congestive) heart failure; I25.10 Atherosclerotic heart disease of native coronary artery without angina pectoris; E55.9 Vitamin D deficiency, unspecified; I48.0 Paroxysmal atrial fibrillation; Z85.46 Personal history of malignant neoplasm of prostate; E03.9 Hypothyroidism, unspecified; K21.9 Gastro-esophageal reflux disease without esophagitis; I25.2 Old myocardial infarction; Z87.891 Personal history of nicotine dependence
CPT/HCPCS: 36415; 80053; 83690; 85025; 96361; 96374; 99284; J2405; J7030

== ENCOUNTER 2025-05-21 13:21 | Outpatient (CLI) | payer MEDICARE, SELFPAY ==
--- OUTSIDE RECORDS SUMMARY | 2007-01-14 06:28 | XMS_ITS | Continuity of Care Document ---
Author Organization [facility] Address [address] [place] [address] [place] [address] Phone Care Team Providers Care Maintenance Fitter Name Role Phone Karsten Mason MD Unavailable Unavailable Procedures Procedure Date Office/outpatient Visit, [facility] Advance Directives Directive Yes / No Effective Date File Name No Information Encounters Encounter Description Practice Location Reason(s) For Visit Diagnoses Date Provider Providers Copied on Encounter Office/outpat ient Visit, [facility], [id number] [place] [address] [address], [place], [place], [id number], [place] tel:[phone] [facility] No Information 4-[address] Isabella Shelley. [address] [facility] [place], [place], [id number], [place]. tel:[phone] Family History Family Member Type Diagnosis Age At Onset No Information Payers Payer name Insurance type Covered green party ID Authoriza tion(s) Medicare [facility] [id number] Social History Type Description Quantity Date Captured [...]
--- OUTSIDE RECORDS SUMMARY | 2025-05-21 13:24 | XMS_ITS | Encounter Summary ---
Author Organization [facility] Address [address] [place] [address] Care Team Providers Care Air Bag Builder Name Role Phone Demond Stark MD Primary Care Provider [phone] Encounter Details Date Type Department Care Team (Late Contact Info) Description 06/13/2023 Lab Requisition [facility] [address] [place] [address] Jaxon Anaya MD [address] [place] [address] Social History Tobacco Use Types Packs/Day Years Used Date Smoking Tobacco: Former Cigarettes Q uit: 09/23/1969 Smokeless Tobacco: Never Alcohol Use Standard Drinks/Week Comments Yes 0 (1 standard drink = 0.6 oz pur e alcohol) Sex and Gender Information Value Date Recorded Sex Assigned at Not on file Legal Sex Male 5:43 PM TENTER Gender Identity Not on file Sexual Orientation Not on file documented as of this encounter Plan of Treatment Upcoming Encounters Date Type Department Care Team (Late st Contact Info) Description 02/04/2026 9:00 AM CDT Office Visit [facility] [address] [place] [phone] Callie Mendoza DO [address] [place] [id number] documented as of this encounter Procedures Procedure Name Priority Date/Time Associated Diagnosis Comments DERMATOPATHOLOGY Routine 06/12/2023 12:0 0 AM CDT documented in this encounter Results * DERMATOPATHOLOGY (06/12/2023 12:00 AM CDT) Case Report Dermatopathology Report Case: [id number] Authorizing Provider: Jaxon Anaya MD Collected: 06/12/2023 [...] specimen consists of a shave biopsy measuring 81n52h4 mm. Jar 0. 3:42 PM CDT DERMATOPATHOLOGY [...] characteristic determined by the Dermatopathology Laboratory at [facility], directed by Dr. Georgina Young. These tests need not be, and therefore are not, approved by the [place] Food and Drug Administration. The tests are used for clinical purposes. Billing Codes Specimen Charges Stain Charges 92291 1 36532 1 3 3:42 PM CDT DERMATOPATHOLOGY LABORATORY Embedded Images 3 3:42 PM CDT DERMATOPATHOLOGY LABORATORY Pathology/Cytolog y TISSUE SPECIMEN FROM SKIN / Unknown 06/12/2023 06/13/2023 1:28 PM CDT Jaxon Anaya MD LAB - PATHOLOGY/CYTOLOGY ORD ERABLES Final Result DERMATOPATHOLOGY LABORATORY [facility] - Department of Dermatology [address] [phone] documented in this encounter Visit Diagnoses Not on filedocumented in this encounter Care Teams Air Bag Builder Relationship Specialty Start Date End Date Demond Stark MD [address] [place] [phone] PCP - General 10/03/15 documented as of this encounter
--- OUTSIDE RECORDS SUMMARY | 2025-05-21 13:24 | XMS_ITS | Encounter Summary ---
Author Organization [facility] Address [address] [place] [address] Care Team Providers Care Cherry Pitter Name Role Phone Unavailable Primary Care Provider Unavailabl e Encounter Details Date Type Department Care Team (Late st Contact Info) Description 10/17/2023 Lab Requisition [facility] Laboratory Services [address] [place] [address] [place] [address] [place] [address] Social History Tobacco Use Types Packs/Day Years Used Date Smoking Tobacco: Never Assessed Sex and Gender Information Value Date Recorded Sex Assigned at Not on file Legal Sex Male 9:18 AM DRUG SAFETY ASSISTANT Gender Identity Not on file Sexual Orientation Not on file documented as of this encounter Plan of Treatment Not on file documented as of this encounter Procedures Procedure Name Priority Date/Time Associated Diagnosis Comments CBC WITH DIFFERENTIAL Routine 10/17/2023 2:15 AM DRUG SAFETY ASSISTANT MAGNESIUM LEVEL Routine 10/17/2023 2:15 AM DRUG SAFETY ASSISTANT RENAL FUNCTION PANEL Routine 10/17/2023 2:15 AM DRUG SAFETY ASSISTANT documented in this encounter Results * MAGNESIUM LEVEL (10/17/2023 2:15 AM DRUG SAFETY ASSISTANT) MAGNESIUM 2.3 1.6 - 2.6 mg/dL 10/17/2023 9:56 AM DRUG SAFETY ASSISTANT [facility] Blood Collection / Unknown 10/17/2023 2:15 AM DRUG SAFETY ASSISTANT 10/17/2023 9:00 AM DRUG SAFETY ASSISTANT Erik Chairez MD CHEMISTRY ORDERABLES Final Resul t [facility] CLIA# [id number] [place] [address] * (ABNORMAL) CBC WITH DIFFERENTIAL (10/17/2023 2:15 AM DRUG SAFETY ASSISTANT) WBC 6.7 4.5 - 10.5 K/uL 10/17/2023 9:34 AM DRUG SAFETY ASSISTANT [facility] RBC 3.73(L) 4.50 - 5.40 M/uL 10/17/2023 9:34 AM DRUG SAFETY ASSISTANT [facility] HEMOGLOBIN 11.1(L) 13.6 - 16.5 g/dL 10/17/2023 9:34 AM DRUG SAFETY ASSISTANT [facility] HEMATOCRIT 35.0(L) 40.0 - 48.0 % 10/17/2023 9:34 AM DRUG SAFETY ASSISTANT [facility] MCV 93.8 82.0 - 99.0 fL 10/17/2023 9:34 AM DRUG SAFETY ASSISTANT [facility] MCH 29.8 27.8 - 34.5 pg 10/17/2023 9:34 AM DRUG SAFETY ASSISTANT [facility] MCHC 31.8(L) 32.5 - 35.5 g/dL 10/17/2023 9:34 AM DRUG SAFETY ASSISTANT [facility] RDW 17.4(H) 11.5 - 14.5 % 10/17/2023 9:34 AM DRUG SAFETY ASSISTANT [facility] PLATELETS 214 160 - 420 K/uL 10/17/2023 9:34 AM DRUG SAFETY ASSISTANT [facility] MPV 9.5 8.7 - 12.7 fL 10/17/2023 9:34 AM DRUG SAFETY ASSISTANT [facility] NEUTROPHILS 50 % 10/17/2023 9:34 AM DRUG SAFETY ASSISTANT [facility] LYMPHOCYTES 28 % 10/17/2023 9:34 AM DRUG SAFETY ASSISTANT [facility] MONOCYTES 8 % 10/17/2023 9:34 AM DRUG SAFETY ASSISTANT [facility] EOSINOPHILS 13 % 10/17/2023 9:34 AM DRUG SAFETY ASSISTANT [facility] BASOPHILS 0 % 10/17/2023 9:34 AM DRUG SAFETY ASSISTANT [facility] NEUTROPHIL ABSOLUTE 3.40 1.90 - 7.00 K/uL 10/17/2023 9:34 AM DRUG SAFETY ASSISTANT [facility] LYMPHOCYTE ABSOLUTE 1.90 0.70 - 4.50 K/uL 10/17/2023 9:34 AM DRUG SAFETY ASSISTANT [facility] MONOCYTE ABSOLUTE 0.50 0.10 - 1.30 K/uL 10/17/2023 9:34 AM DRUG SAFETY ASSISTANT [facility] EOSINOPHIL ABSOLUTE 0.90(H) 0.00 - 0.70 K/uL 10/17/2023 9:34 AM DRUG SAFETY ASSISTANT [facility] BASOPHILS ABSOLUTE 0.00 0.00 - 0.20 K/uL 10/17/2023 9:34 AM DRUG SAFETY ASSISTANT [facility] Blood Collection / Unknown 10/17/2023 2:15 AM DRUG SAFETY ASSISTANT 10/17/2023 9:00 AM DRUG SAFETY ASSISTANT us Erik Chairez MD HEMATOLOGY ORDERABLES Final Resu lt [facility] CLIA# [id number] [place] [address] * (ABNORMAL) RENAL FUNCTION PANEL (10/17/2023 2:15 AM DRUG SAFETY ASSISTANT) SODIUM 137 136 - 145 mmol/L 10/17/2023 9:56 AM [facility] [employer] [facility] POTASSIUM 4.0 3.4 - 5.1 mmol/L 10/17/2023 9:56 AM [facility] CHLORIDE 99 98 - 107 mmol/L 10/17/2023 9:56 AM [facility] [employer] [facility] CO2 23 22 - 29 mmol/L 10/17/2023 9:56 AM [facility] [employer] [facility] CALCIUM 9.2 8.6 - 10.4 mg/dL 10/17/2023 9:56 AM [facility] [employer] [facility] BUN 42(H) 6 - 20 mg/dL 10/17/2023 9:56 AM [facility] CREATININE 1.00 0.67 - 1.17 mg/dL 10/17/2023 9:56 AM [facility] Comment:The GFR result is no t clinically significant on patients <18 or >70 years of age. GLUCOSE 72(L) 74 - 99 mg/dL 10/17/2023 9:56 AM [facility] ALBUMIN 3.2(L) 3.5 - 5.2 g/dL 10/17/2023 9:56 AM [facility] PHOSPHORUS 2.9 2.5 - 4.5 mg/dL 10/17/2023 9:56 AM [facility] GFR >60 mL/min/1.7 3 sq meter 10/17/2023 9:56 AM [facility] Comment:eGFR calculated with 2020 CKD-EPI equation. Vegetarian diet, extremely high or low muscle mass, and may affect results. Cystatin C with Glomerular Filtration Rate is a suitable alternative for these patients. 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
--- OUTSIDE RECORDS SUMMARY | 2025-05-21 13:24 | XMS_ITS | Encounter Summary ---
Author Organization [facility] Address [address] [place] [address] Care Team Providers Care Knit Goods Mender Name Role Phone Unavailable Primary Care Provider Unavailabl e Encounter Details Date Type Department Care Team (Late st Contact Info) Description 10/13/2023 Lab Requisition [facility] Laboratory Services [address] [place] [address] [place] [address] [place] [address] Social History Tobacco Use Types Packs/Day Years Used Date Smoking Tobacco: Never Assessed Sex and Gender Information Value Date Recorded Sex Assigned at Not on file Legal Sex Male 9:18 AM JAVA DEVELOPMENT TEAM LEAD Gender Identity Not on file Sexual Orientation Not on file documented as of this encounter Plan of Treatment Not on file documented as of this encounter Procedures Procedure Name Priority Date/Time Associated Diagnosis Comments MAGNESIUM LEVEL Routine 10/13/2023 4:00 AM JAVA DEVELOPMENT TEAM LEAD RENAL FUNCTION PANEL Routine 10/13/2023 4:00 AM JAVA DEVELOPMENT TEAM LEAD documented in this encounter Results * MAGNESIUM LEVEL (10/13/2023 4:00 AM JAVA DEVELOPMENT TEAM LEAD) MAGNESIUM 2.3 1.6 - 2.6 mg/dL 10/13/2023 5:59 AM JAVA DEVELOPMENT TEAM LEAD [facility] [employer] [facility] Blood Collection / Unknown 10/13/2023 4:00 AM JAVA DEVELOPMENT TEAM LEAD 10/13/2023 5:20 AM JAVA DEVELOPMENT TEAM LEAD us Erik Chairez MD CHEMISTRY ORDERABLES Final [facility]ul t [id number] [place] [address] * (ABNORMAL) RENAL FUNCTION PANEL (10/13/2023 4:00 AM JAVA DEVELOPMENT TEAM LEAD) SODIUM 138 136 - 145 mmol/L 10/13/2023 [...] Blood Collection / Unknown 10/13/2023 4:00 AM JAVA DEVELOPMENT TEAM LEAD 10/13/2023 5:20 AM JAVA DEVELOPMENT TEAM LEAD Erik Chairez MD CHEMISTRY ORDERABLES Final Resul t [facility] LABORATORY SERVICES [facility] CLIA# [id number] [address] [place] [address] documented in this encounter Visit Diagnoses Not on filedocumented in this encounter Additional Health Concerns Infection Onset Date Last Indicated Resolved Time 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
--- OUTSIDE RECORDS SUMMARY | 2025-05-21 13:24 | XMS_ITS | Encounter Summary ---
Author Organization [facility] Address [address] [place] [address] Care Team Providers Care Director Of Communications Name Role Phone Demond Stark MD Primary Care Provider [phone] Encounter Details Date Type Department Care Team (Late st Contact Info) Description 10/16/2016 Orders Only [facility] ProviderTaylor MD [address] [place], [place] [id number] Social History Tobacco Use Types Packs/Day Years Used Date Smoking Tobacco: Former Cigarettes Q uit: 09/23/1969 Alcohol Use Standard Drinks/Week Comments Yes 0 (1 standard drink = 0.6 oz pur e alcohol) Sex and Gender Information Value Date Recorded Sex Assigned at Not on file Legal Sex Male 8:49 AM SUPERVISOR RESPIRATORY Gender Identity Not on file Sexual Orientation [...] on filedocumented in this encounter Care Teams Director Of Communications Relationship Specialty Start Date End Date Demond Stark MD PCP - General 07/23/11 documented as of this encounter
--- OUTSIDE RECORDS SUMMARY | 2025-05-21 13:24 | XMS_ITS | Encounter Summary ---
Author Organization [facility] Address [address] [place] [address] Care Team Providers Care Svp Marketing Name Role Phone Unavailable Primary Care Provider Unavailabl e Encounter Details Date Type Department Care Team (Late st Contact Info) Description 11/07/2023 Lab Requisition [facility] Laboratory Services [address] [place] [address] [place] [address] [place] [address] Social History Tobacco Use Types Packs/Day Years Used Date Smoking Tobacco: Never Assessed Sex and Gender Information Value Date Recorded Sex Assigned at Not on file Legal Sex Male 9:18 AM ACID PLANT HELPER Gender Identity Not on file Sexual Orientation Not on file documented as of this encounter Plan of Treatment Not on file documented as of this encounter Procedures Procedure Name Priority Date/Time Associated Diagnosis Comments CBC WITH DIFFERENTIAL Routine 11/07/2023 4:30 AM ACID PLANT HELPER BASIC METABOLIC PANEL Routine 11/07/2023 4:30 AM ACID PLANT HELPER documented in this encounter Results * (ABNORMAL) CBC WITH DIFFERENTIAL (11/07/2023 4:30 AM ACID PLANT HELPER) WBC 9.4 4.5 - 10.5 K/uL 11/07/2023 8:10 AM ACID PLANT HELPER [facility] - [facility] RBC 4.06(L) 4.50 - 5.40 M/uL 11/07/2023 8:10 AM ACID PLANT HELPER [facility] LAB[facility] HEMOGLOBIN 11.9(L) 13.6 - 16.5 g/dL 11/07/2023 8:10 AM ACID PLANT HELPER [facility] HEMATOCRIT 37.1(L) 40.0 - 48.0 % 11/07/2023 8:10 AM ACID PLANT HELPER [facility] LABORATORY SERVICES [facility] MCV 91.5 82.0 - 99.0 fL 11/07/2023 8:10 AM ACID PLANT HELPER [facility] - [facility] MCH 29.4 27.8 - 34.5 pg 11/07/2023 8:10 AM ACID PLANT HELPER [facility] LABORATORY SERVICES [facility] MCHC 32.1(L) 32.5 - 35.5 g/dL 11/07/2023 8:10 AM ACID PLANT HELPER [facility] LABORAT[facility] SERVICES [facility] RDW 16.9(H) 11.5 - 14.5 % 11/07/2023 8:10 AM ACID PLANT HELPER [facility] LABORATORY SERVICES [facility] PLATELETS 270 160 - 420 K/uL 11/07/2023 8:10 AM ACID PLANT HELPER [facility] LABORATORY SERVICES [facility] MPV 10.0 8.7 - 12.7 fL 11/07/2023 8:10 AM ACID PLANT HELPER [facility] LABORATORY SERVICES [facility] NEUTROPHILS 61 % 11/07/2023 8:10 AM ACID PLANT HELPER [facility] LABORATORY SERVICES [facility] LYMPHOCYTES 21 % 11/07/2023 8:10 AM ACID PLANT HELPER [facility] MONOCYTES 6 % 11/07/2023 8:10 AM ACID PLANT HELPER [facility] EOSINOPHILS 11 % 11/07/2023 8:10 AM ACID PLANT HELPER [facility] BASOPHILS 1 % 11/07/2023 8:10 AM ACID PLANT HELPER [facility] LABORATORY SERVICES [facility] NEUTROPHIL ABSOLUTE 5.70 1.90 - 7.00 K/uL 11/07/2023 8:10 AM ACID PLANT HELPER [facility] LABORATORY SERVICES [facility] LYMPHOCYTE ABSOLUTE 2.00 0.70 - 4.50 K/uL 11/07/2023 8:10 AM ACID PLANT HELPER [facility] MONOCYTE ABSOLUTE 0.60 0.10 - 1.30 K/uL 11/07/2023 8:10 AM ACID PLANT HELPER [facility] LABORATORY SERVICES [facility] EOSINOPHIL ABSOLUTE 1.00(H) 0.00 - 0.70 K/uL 11/07/2023 8:10 AM ACID PLANT HELPER [facility] LABORATORY SERVICES [facility] BASOPHILS ABSOLUTE 0.10 0.00 - 0.20 K/uL 11/07/2023 8:10 AM [facility] Blood 11/07/2023 4:30 AM ACID PLANT HELPER 11/07/2023 8:06 AM ACID PLANT HELPER us Erik Chairez MD HEMATOLOGY ORDERABLES Final Resu lt [facility] CLIA# [id number] [address] [place] [address] * (ABNORMAL) BASIC METABOLIC PANEL (11/07/2023 4:30 AM ACID PLANT HELPER) SODIUM 137 136 - 145 mmol/L 11/07/2023 [...] 8 - 16 mmol/L 11/07/2023 8:41 AM ACID PLANT HELPER [facility] LABORATORY SERVICES [facility] Blood 11/07/2023 4:30 AM ACID PLANT HELPER 11/07/2023 8:12 AM ACID PLANT HELPER Erik Chairez MD CHEMISTRY ORDERABLES Final Resul t [facility] LABORATORY [facility] CLIA# [id number] [address] [place] [address] documented in this encounter Visit Diagnoses Not on filedocumented in this encounter Additional Health Concerns Infection Onset Date Last Indicated Resolved Time 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
--- OUTSIDE RECORDS SUMMARY | 2025-05-21 13:24 | XMS_ITS | Encounter Summary ---
Author Organization [facility] Address [address] [place] [address] Care Team Providers Care Patrol Captain Name Role Phone Unavailable Primary Care Provider Unavailabl e Encounter Details Date Type Department Care Team (Late st Contact Info) Description 10/20/2023 Lab Requisition [facility] Laboratory Services [address] [place] [address] [place] [address] [place] [address] Social History Tobacco Use Types Packs/Day Years Used Date Smoking Tobacco: Never Assessed Sex and Gender Information Value Date Recorded Sex Assigned at Not on file Legal Sex Male 9:18 AM CHIEF LIBRARIAN EXTENSION DEPARTMENT Gender Identity Not on file Sexual Orientation Not on file documented as of this encounter Plan of Treatment Not on file documented as of this encounter Procedures Procedure Name Priority Date/Time Associated Diagnosis Comments CBC WITH DIFFERENTIAL Routine 10/20/2023 2:20 AM CHIEF LIBRARIAN EXTENSION DEPARTMENT BASIC METABOLIC PANEL Routine 10/20/2023 2:20 AM CHIEF LIBRARIAN EXTENSION DEPARTMENT documented in this encounter Results * (ABNORMAL) CBC WITH DIFFERENTIAL (10/20/2023 2:20 AM CHIEF LIBRARIAN EXTENSION DEPARTMENT) WBC 8.3 4.5 - 10.5 K/uL 10/20/2023 5:25 AM CHIEF LIBRARIAN EXTENSION DEPARTMENT [facility] LABORATORY SERVICES - [facility] RBC 3.82(L) 4.50 - 5.40 M/uL 10/20/2023 5:25 AM CHIEF LIBRARIAN EXTENSION DEPARTMENT [facility] LABORATORY [facility] HEMOGLOBIN 11.2(L) 13.6 - 16.5 g/dL 10/20/2023 5:25 AM CHIEF LIBRARIAN EXTENSION DEPARTMENT [facility] LABORATORY SERVICES - [facility] HEMATOCRIT 35.0(L) 40.0 - 48.0 % 10/20/2023 5:25 AM CHIEF LIBRARIAN EXTENSION DEPARTMENT [facility] LABORATORY SERVICES [facility] MCV 91.6 82.0 - 99.0 fL 10/20/2023 5:25 AM CHIEF LIBRARIAN EXTENSION DEPARTMENT [facility] LABORATORY SERVICES - [facility] MCH 29.4 27.8 - 34.5 pg 10/20/2023 5:25 AM CHIEF LIBRARIAN EXTENSION DEPARTMENT [facility] LABORATORY SERVICES [facility] MCHC 32.1(L) 32.5 - 35.5 g/dL 10/20/2023 5:25 AM CHIEF LIBRARIAN EXTENSION DEPARTMENT [facility] LABORATORY SERVICES - [facility] RDW 17.4(H) 11.5 - 14.5 % 10/20/2023 5:25 AM CHIEF LIBRARIAN EXTENSION DEPARTMENT [facility] - [facility] PLATELETS 255 160 - 420 K/uL 10/20/2023 5:25 AM CHIEF LIBRARIAN EXTENSION DEPARTMENT [facility] MPV 9.4 8.7 - 12.7 fL 10/20/2023 5:25 AM CHIEF LIBRARIAN EXTENSION DEPARTMENT [facility] - [facility] NEUTROPHILS 60 % 10/20/2023 5:25 AM CHIEF LIBRARIAN EXTENSION DEPARTMENT [facility] - [facility] LYMPHOCYTES 23 % 10/20/2023 5:25 AM CHIEF LIBRARIAN EXTENSION DEPARTMENT [employer] LABORATORY SERVICES [facility] MONOCYTES 6 % 10/20/2023 5:25 AM CHIEF LIBRARIAN EXTENSION DEPARTMENT [facility] EOSINOPHILS 11 % 10/20/2023 5:25 AM CHIEF LIBRARIAN EXTENSION DEPARTMENT [facility] BASOPHILS 1 % 10/20/2023 5:25 AM CHIEF LIBRARIAN EXTENSION DEPARTMENT [facility] NEUTROPHIL ABSOLUTE 4.90 1.90 - 7.00 K/uL 10/20/2023 5:25 AM CHIEF LIBRARIAN EXTENSION DEPARTMENT [facility] LYMPHOCYTE ABSOLUTE 1.90 0.70 - 4.50 K/uL 10/20/2023 5:25 AM CHIEF LIBRARIAN EXTENSION DEPARTMENT [employer] LABORATORY SERVICES [facility] MONOCYTE ABSOLUTE 0.50 0.10 - 1.30 K/uL 10/20/2023 5:25 AM CHIEF LIBRARIAN EXTENSION DEPARTMENT [facility] EOSINOPHIL ABSOLUTE 0.90(H) 0.00 - 0.70 K/uL 10/20/2023 5:25 AM CHIEF LIBRARIAN EXTENSION DEPARTMENT [facility] BASOPHILS ABSOLUTE 0.00 0.00 - 0.20 K/uL 10/20/2023 5:25 AM [facility] Blood 10/20/2023 2:20 AM CHIEF LIBRARIAN EXTENSION DEPARTMENT 10/20/2023 5:15 AM CHIEF LIBRARIAN EXTENSION DEPARTMENT Erik Chairez MD HEMATOLOGY ORDERABLES Final Resu lt [facility] CLIA# [id number] [place] [address] * (ABNORMAL) BASIC METABOLIC PANEL (10/20/2023 2:20 AM CHIEF LIBRARIAN EXTENSION DEPARTMENT) SODIUM 140 136 - 145 mmol/L 10/20/2023 [...] - 16 mmol/L 10/20/2023 5:53 AM CHIEF LIBRARIAN EXTENSION DEPARTMENT [facility] LABORATORY SERVICES [facility] Blood 10/20/2023 2:20 AM CHIEF LIBRARIAN EXTENSION DEPARTMENT 10/20/2023 5:15 AM CHIEF LIBRARIAN EXTENSION DEPARTMENT Erik Chairez MD CHEMISTRY ORDERABLES Final Resul t [facility] LABORATORY [facility] CLIA# [id number] [place] [address] documented in this encounter Visit Diagnoses Not on filedocumented in this encounter Additional Health Concerns Infection Onset Date Last Indicated Resolved Time 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
--- OUTSIDE RECORDS SUMMARY | 2025-05-21 13:24 | XMS_ITS | Encounter Summary ---
Author Organization [facility] Address [address] [place] [address] Care Team Providers Care Medical Lead Name Role Phone Unavailable Primary Care Provider Unavailabl e Encounter Details Date Type Department Care Team (Late st Contact Info) Description 10/10/2023 Lab Requisition [facility] Services [address] [place] [address] [place] [address] [place] [address] Social History Tobacco Use Types Packs/Day Years Used Date Smoking Tobacco: Never Assessed Sex and Gender Information Value Date Recorded Sex Assigned at Not on file Legal Sex Male 9:18 AM POULTRY PACKER Gender Identity Not on file Sexual Orientation Not on file documented as of this encounter Plan of Treatment Not on file documented as of this encounter Procedures Procedure Name Priority Date/Time Associated Diagnosis Comments CARBAPENEM RESISTANT ORGANISM Routine 10/09/2023 9:30 PM POULTRY PACKER SPUTUM CULTURE WITH GRAM STAIN Routine 10/09/2023 9:30 PM POULTRY PACKER documented in this encounter Results * (ABNORMAL) CARBAPENEM RESISTANT ORGANISM (10/09/2023 9:30 PM POULTRY PACKER) ORGANISM TESTED Klebsiella pneumoniae 10/12/2023 4:25 PM POULTRY PACKER [facility] Carbapenem Resistance Gene Detected(A) Not Detected 10/12/2023 4:25 PM POULTRY PACKER [facility] (carbapenem-re sistance gene) by PCR DETECTED(A) Not Detected 10/12/2023 4:25 PM POULTRY PACKER [facility] Sputum Collection / Unknown 10/09/2023 9:30 PM POULTRY PACKER 10/10/2023 9:54 AM POULTRY PACKER [facility] - 10/12/2023 4:25 PM POULTRY PACKER This isolate is a carbapenem-resistant Organism (REINFORCER) AND is a carbapenamase-film reproducer. If inpatient, place patient in Enhanced Contact Isolation. The [employer] Xpert Carba-R PCR assay detects the presence of KPC, NDM, VIM, OXA- 48, and IMP gene sequences that induce carbapenemase production in gram negative bacteria. This test was performed using an FDA approved screening methodology. Erik Chairez MD MICROBIOLOGY - GENERAL ORDERABLE S Final Result [facility]# [id number] [address] [place] [address] * (ABNORMAL) SPUTUM CULTURE WITH GRAM STAIN (10/09/2023 9:30 PM POULTRY PACKER) CULTURE KLEBSIELLA PNEUMONIAE(A) LUCINA MCG/ML 10/17/2023 10:47 AM POULTRY PACKER [facility] [address] [facility] Comment: This isolate is a Carbapenem-Resistant Organism AND is a carbapenemase film reproducer (REINFORCER-CP). If inpatient, place patient in Enhanced Contact Isolation. Multiple drug resistant organism (MDRO). CULTURE Absent Normal Shahrzad LUCINA MCG/ML 10/17/2023 10:47 AM [facility] [address] [facility] GRAM STAIN Non diagnostic pattern LUCINA MCG/ML 10/17/2023 10:47 AM [facility] GRAM STAIN No WBC observed 10/17/2023 10:47 AM [facility] [address] [facility] Sputum Collection / Unknown 10/09/2023 9:30 PM POULTRY PACKER 10/10/2023 9:54 AM POULTRY PACKER [facility] [address] [facility] - 10/17/2023 10:47 AM POULTRY PACKER Results called to Kelly Suarez RN, Rosalie [...] Edited Result - Final Performing Organization Address City/State/[facility] Co de Phone Number [facility]# [id number] [phone] [place] [address] documented in this encounter Visit Diagnoses Not on filedocumented in this encounter Additional Health Concerns Infection Onset Date Last Indicated Resolved Time 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
--- OUTSIDE RECORDS SUMMARY | 2025-05-21 13:24 | XMS_ITS | Encounter Summary ---
Author Organization [facility] Address [address] [place] [address] Care Team Providers Care Teletray Operator Name Role Phone Unavailable Primary Care Provider Unavailabl e Encounter Details Date Type Department Care Team (Late st Contact Info) Description 10/10/2023 Lab Requisition [facility] Services [address] [place] [address] [place] [address] [place] [address] Social History Tobacco Use Types Packs/Day Years Used Date Smoking Tobacco: Never Assessed Sex and Gender Information Value Date Recorded Sex Assigned at Not on file Legal Sex Male 9:18 AM DRYING AND WINDING SUPERVISOR Gender Identity Not on file Sexual Orientation Not on file documented as of this encounter Plan of Treatment Not on file documented as of this encounter Procedures Procedure Name Priority Date/Time Associated Diagnosis Comments CBC WITH DIFFERENTIAL Routine 10/10/2023 3:30 AM DRYING AND WINDING SUPERVISOR PTT Routine 10/10/2023 3:30 AM DRYING AND WINDING SUPERVISOR PROTIME-INR Routine 10/10/2023 3:30 AM DRYING AND WINDING SUPERVISOR PREALBUMIN Routine 10/10/2023 3:30 AM DRYING AND WINDING SUPERVISOR COMPREHENSIVE METABOLIC PANEL Routine 10/10/2023 3:30 AM DRYING AND WINDING SUPERVISOR documented in this encounter Results * PTT (10/10/2023 3:30 AM DRYING AND WINDING SUPERVISOR) PTT 23.4 23.1 - 37.1 seconds 10/10/2023 10:14 AM DRYING AND WINDING SUPERVISOR [facility] Blood Collection / Unknown 10/10/2023 3:30 AM DRYING AND WINDING SUPERVISOR 10/10/2023 9:51 AM DRYING AND WINDING SUPERVISOR Erik Chairez MD HEMATOLOGY ORDERABLES Final Resu lt [facility] CLIA# [id number] [place] [address] * (ABNORMAL) PROTIME-INR (10/10/2023 3:30 AM DRYING AND WINDING SUPERVISOR) PROTIME 15.0(H) 11.5 - 14.7 Seconds 10/10/2023 10:14 AM DRYING AND WINDING SUPERVISOR [facility] LAB[facility] INR 1.2(H) 0.9 - 1.1 10/10/2023 10:14 AM DRYING AND WINDING SUPERVISOR [facility] Blood Collection / Unknown 10/10/2023 3:30 AM DRYING AND WINDING SUPERVISOR 10/10/2023 9:51 AM DRYING AND WINDING SUPERVISOR Erik Chairez MD HEMATOLOGY ORDERABLES Final Resu lt [facility] [place] [facility] CLIA# [id number] [place] [address] * PREALBUMIN (10/10/2023 3:30 AM DRYING AND WINDING SUPERVISOR) PREALBUMIN 23 20 - 40 mg/dL 10/10/2023 2:24 PM DRYING AND WINDING SUPERVISOR [facility] LABOR[facility]ORY [facility] Blood Collection / Unknown 10/10/2023 3:30 AM DRYING AND WINDING SUPERVISOR 10/10/2023 9:51 AM DRYING AND WINDING SUPERVISOR Erik Chairez MD CHEMISTRY ORDERABLES Final Resul t [facility] [place] [facility] CLIA# [id number] [address] [place] [address] * (ABNORMAL) CBC WITH DIFFERENTIAL (10/10/2023 3:30 AM DRYING AND WINDING SUPERVISOR) [facility] WBC 10.1 4.5 - 10.5 K/uL 10/10/2023 11:06 AM [facility] RBC 3.85(L) 4.50 - 5.40 M/uL 10/10/2023 11:06 AM [facility] HEMOGLOBIN 11.6(L) 13.6 - 16.5 g/dL 10/10/2023 11:06 AM [facility] [place] [facility] HEMATOCRIT 36.6(L) 40.0 - 48.0 % 10/10/2023 11:06 AM [facility] [place] [facility] MCV 95.2 82.0 - 99.0 fL 10/10/2023 11:06 AM [facility] [place] [facility] MCH 30.1 27.8 - 34.5 pg 10/10/2023 11:06 AM [facility] [place] [facility] MCHC 31.6(L) 32.5 - 35.5 g/dL 10/10/2023 11:06 AM [facility] [place] [facility] RDW 19.2(H) 11.5 - 14.5 % 10/10/2023 11:06 AM [facility] [place] [facility] PLATELETS 250 160 - 420 K/uL 10/10/2023 11:06 AM [facility] [place] [facility] MPV 9.8 8.7 - 12.7 fL 10/10/2023 11:06 AM [facility] [place] [facility] NEUTROPHILS 72 % 10/10/2023 11:06 AM [facility] [place] [facility] LYMPHOCYTES 15 % 10/10/2023 11:06 AM DRYING AND WINDING SUPERVISOR [facility] LAB[facility]ORY [facility] MONOCYTES 7 % 10/10/2023 11:06 AM DRYING AND WINDING SUPERVISOR [facility] LAB[facility] EOSINOPHILS 5 % 10/10/2023 11:06 AM DRYING AND WINDING SUPERVISOR [facility] LAB[facility] BASOPHILS 0 % 10/10/2023 11:06 AM [facility] LABORATORY [facility] NEUTROPHIL ABSOLUTE 7.20(H) 1.90 - 7.00 K/uL 10/10/2023 11:06 AM [facility] [place] [facility] LYMPHOCYTE ABSOLUTE 1.50 0.70 - 4.50 K/uL 10/10/2023 11:06 AM DRYING AND WINDING SUPERVISOR [facility] LABORATORY [facility] MONOCYTE ABSOLUTE 0.70 0.10 - 1.30 K/uL 10/10/2023 11:06 AM DRYING AND WINDING SUPERVISOR [facility] LABORATORY [facility] EOSINOPHIL ABSOLUTE 0.50 0.00 - 0.70 K/uL 10/10/2023 11:06 AM DRYING AND WINDING SUPERVISOR [facility] LAB[facility]ATORY [facility] BASOPHILS ABSOLUTE 0.00 0.00 - 0.20 K/uL 10/10/2023 11:06 AM DRYING AND WINDING SUPERVISOR [facility] [place] [facility] Blood Collection / Unknown 10/10/2023 3:30 AM DRYING AND WINDING SUPERVISOR 10/10/2023 9:51 AM DRYING AND WINDING SUPERVISOR us Erik Chairez MD HEMATOLOGY ORDERABLES Final Resu lt [facility] CLIA# [id number] [place] [address] * (ABNORMAL) COMPREHENSIVE METABOLIC PANEL (10/10/2023 3:30 AM DRYING AND WINDING SUPERVISOR) SODIUM 142 136 - 145 mmol/L 10/10/2023 10:49 AM [facility] [place] [facility] POTASSIUM 4.1 3.4 - 5.1 mmol/L 10/10/2023 10:49 AM [facility] [place] [facility] CHLORIDE 104 98 - 107 mmol/L 10/10/2023 10:49 AM [facility] [place] [facility] CO2 23 22 - 29 mmol/L 10/10/2023 10:49 AM [facility] [place] [facility] CALCIUM 9.4 8.6 - 10.4 mg/dL 10/10/2023 10:49 AM [facility] [place] [facility] BUN 34(H) 6 - 20 mg/dL 10/10/2023 10:49 AM [facility] [place] [facility] CREATININE 1.24(H) 0.67 - 1.17 mg/dL 10/10/2023 10:49 AM [facility] LABORATORY [facility] Comment:The GFR result is no t clinically significant on patients <18 or >70 years of age. GLUCOSE 91 74 - 99 mg/dL 10/10/2023 10:49 AM [facility] TOTAL PROTEIN 7.4 6.3 - 8.7 g/dL 10/10/2023 10:49 AM [facility] ALBUMIN 3.6 3.5 - 5.2 g/dL 10/10/2023 10:49 AM [facility] BILIRUBIN TOTAL 0.6 0.2 - 1.1 mg/dL 10/10/2023 10:49 AM [facility] ALKALINE PHOSPHATASE 84 40 - 150 U/L 10/10/2023 10:49 AM [facility] AST 15 0 - 41 U/L 10/10/2023 10:49 AM [facility] ALT 13 0 - 41 U/L 10/10/2023 10:49 AM [facility] GFR 58 mL/min/1.7 3 sq meter 10/10/2023 10:49 AM [facility] Comment:eGFR calculated with 2020 CKD-EPI equation. Vegetarian diet, extremely high or low muscle mass, and may affect results. Cystatin C with Glomerular Filtration Rate is a suitable alternative for these patients. 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
--- OUTSIDE RECORDS SUMMARY | 2025-05-21 13:24 | XMS_ITS | Encounter Summary ---
Author Organization [facility] Address [address] [place] [address] Care Team Providers Care Tape Controlled Machine Stitcher Name Role Phone Unavailable Primary Care Provider Unavailabl e Encounter Details Date Type Department Care Team (Late st Contact Info) Description 10/23/2023 Lab Requisition [facility] Laboratory Services [address] [place] [address] [place] [address] [place] [address] Social History Tobacco Use Types Packs/Day Years Used Date Smoking Tobacco: Never Assessed Sex and Gender Information Value Date Recorded Sex Assigned at Not on file Legal Sex Male 9:18 AM COST AND RISK ANALYSIS MANAGER Gender Identity Not on file Sexual Orientation Not on file documented as of this encounter Plan of Treatment Not on file documented as of this encounter Procedures Procedure Name Priority Date/Time Associated Diagnosis Comments CBC WITH DIFFERENTIAL Routine 10/23/2023 2:45 AM COST AND RISK ANALYSIS MANAGER BASIC METABOLIC PANEL Routine 10/23/2023 2:45 AM COST AND RISK ANALYSIS MANAGER documented in this encounter Results * (ABNORMAL) CBC WITH DIFFERENTIAL (10/23/2023 2:45 AM COST AND RISK ANALYSIS MANAGER) WBC 12.7(H) 4.5 - 10.5 K/uL 10/23/2023 11:15 AM COST AND RISK ANALYSIS MANAGER [facility] - [facility] RBC 4.12(L) 4.50 - 5.40 M/uL 10/23/2023 11:15 AM COST AND RISK ANALYSIS MANAGER [facility] - [facility] HEMOGLOBIN 12.2(L) 13.6 - 16.5 g/dL 10/23/2023 11:15 AM COST AND RISK ANALYSIS MANAGER [facility] SERVICES [facility] HEMATOCRIT 38.7(L) 40.0 - 48.0 % 10/23/2023 11:15 AM COST AND RISK ANALYSIS MANAGER [facility] - [facility] MCV 94.0 82.0 - 99.0 fL 10/23/2023 11:15 AM COST AND RISK ANALYSIS MANAGER [facility] MCH 29.7 27.8 - 34.5 pg 10/23/2023 11:15 AM COST AND RISK ANALYSIS MANAGER [facility] MCHC 31.6(L) 32.5 - 35.5 g/dL 10/23/2023 11:15 AM COST AND RISK ANALYSIS MANAGER [facility] RDW 17.3(H) 11.5 - 14.5 % 10/23/2023 11:15 AM COST AND RISK ANALYSIS MANAGER [facility] PLATELETS 264 160 - 420 K/uL 10/23/2023 11:15 AM COST AND RISK ANALYSIS MANAGER [facility] MPV 9.6 8.7 - 12.7 fL 10/23/2023 11:15 AM COST AND RISK ANALYSIS MANAGER [facility] NEUTROPHILS 67 % 10/23/2023 11:15 AM COST AND RISK ANALYSIS MANAGER [facility] LYMPHOCYTES 20 % 10/23/2023 11:15 AM COST AND RISK ANALYSIS MANAGER [facility] MONOCYTES 5 % 10/23/2023 11:15 AM COST AND RISK ANALYSIS MANAGER [facility] EOSINOPHILS 8 % 10/23/2023 11:15 AM COST AND RISK ANALYSIS MANAGER [facility] BASOPHILS 1 % 10/23/2023 11:15 AM COST AND RISK ANALYSIS MANAGER [facility] NEUTROPHIL ABSOLUTE 8.50(H) 1.90 - 7.00 K/uL 10/23/2023 11:15 AM COST AND RISK ANALYSIS MANAGER [facility] LYMPHOCYTE ABSOLUTE 2.50 0.70 - 4.50 K/uL 10/23/2023 11:15 AM COST AND RISK ANALYSIS MANAGER [facility] MONOCYTE ABSOLUTE 0.60 0.10 - 1.30 K/uL 10/23/2023 11:15 AM COST AND RISK ANALYSIS MANAGER [facility] EOSINOPHIL ABSOLUTE 1.00(H) 0.00 - 0.70 K/uL 10/23/2023 11:15 AM COST AND RISK ANALYSIS MANAGER [facility] BASOPHILS ABSOLUTE 0.10 0.00 - 0.20 K/uL 10/23/2023 11:15 AM [facility] Blood Collection / Unknown 10/23/2023 2:45 AM COST AND RISK ANALYSIS MANAGER 10/23/2023 10:44 AM COST AND RISK ANALYSIS MANAGER Erik Chairez MD HEMATOLOGY ORDERABLES Final Resu lt [facility] CLIA# [id number] [place] [address] * (ABNORMAL) BASIC METABOLIC PANEL (10/23/2023 2:45 AM COST AND RISK ANALYSIS MANAGER) SODIUM 139 136 - 145 mmol/L [...] 8 - 16 mmol/L 10/23/2023 11:42 AM COST AND RISK ANALYSIS MANAGER [facility] Blood Collection / Unknown 10/23/2023 2:45 AM COST AND RISK ANALYSIS MANAGER 10/23/2023 10:44 AM COST AND RISK ANALYSIS MANAGER Erik Chairez MD CHEMISTRY ORDERABLES Final Resul t [facility] CLIA# [id number] [address] [place] [address] documented in this encounter Visit Diagnoses Not on filedocumented in this encounter Additional Health Concerns Infection Onset Date Last Indicated Resolved Time CRE-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
--- OUTSIDE RECORDS SUMMARY | 2025-05-21 13:24 | XMS_ITS | Encounter Summary ---
Author Organization [facility] Address [address] [place] [address] Care Team Providers Care Grease Maker Head Name Role Phone Unavailable Primary Care Provider Unavailabl e Encounter Details Date Type Department Care Team (Late st Contact Info) Description 10/12/2023 Lab Requisition [facility] Laboratory Services [address] [place] [address] [place] [address] [place] [address] Social History Tobacco Use Types Packs/Day Years Used Date Smoking Tobacco: Never Assessed Sex and Gender Information Value Date Recorded Sex Assigned at Not on file Legal Sex Male 9:18 AM PRINT LINE TAILER Gender Identity Not on file Sexual Orientation Not on file documented as of this encounter Plan of Treatment Not on file documented as of this encounter Procedures Procedure Name Priority Date/Time Associated Diagnosis Comments MAGNESIUM LEVEL Routine 10/12/2023 4:00 AM PRINT LINE TAILER RENAL FUNCTION PANEL Routine 10/12/2023 4:00 AM PRINT LINE TAILER documented in this encounter Results * MAGNESIUM LEVEL (10/12/2023 4:00 AM PRINT LINE TAILER) MAGNESIUM 2.3 1.6 - 2.6 mg/dL 10/12/2023 6:02 AM PRINT LINE TAILER [facility] [employer] [facility] Blood Collection / Unknown 10/12/2023 4:00 AM PRINT LINE TAILER 10/12/2023 5:07 AM PRINT LINE TAILER us Erik Chairez MD CHEMISTRY ORDERABLES Final Resul t [facility]# [id number] [place] [address] * (ABNORMAL) RENAL FUNCTION PANEL (10/12/2023 4:00 AM PRINT LINE TAILER) SODIUM 139 136 - 145 mmol/L 10/12/2023 6:02 AM [facility] POTASSIUM 4.2 3.4 - 5.1 mmol/L 10/12/2023 6:02 AM [facility] CHLORIDE 102 98 - 107 mmol/L 10/12/2023 6:02 AM [facility] CO2 24 22 - 29 mmol/L 10/12/2023 6:02 AM [facility] CALCIUM 9.5 8.6 - 10.4 mg/dL 10/12/2023 6:02 AM [facility] BUN 43(H) 6 - 20 mg/dL 10/12/2023 6:02 AM [facility] CREATININE 1.20(H) 0.67 - 1.17 mg/dL 10/12/2023 6:02 AM [facility] Comment:The GFR result is no t clinically significant on patients <18 or >70 years of age. GLUCOSE 94 74 - 99 mg/dL 10/12/2023 6:02 AM [facility] ALBUMIN 3.4(L) 3.5 - 5.2 g/dL 10/12/2023 6:02 AM [facility] PHOSPHORUS 4.2 2.5 - 4.5 mg/dL 10/12/2023 6:02 AM [facility] GFR 60 mL/min/1.7 3 sq meter 10/12/2023 6:02 AM [facility] Comment:eGFR calculated with 2020 CKD-EPI equation. Vegetarian diet, extremely high or low muscle mass, and may affect results. Cystatin C with Glomerular Filtration Rate is a suitable alternative for these patients. ANION GAP 13 8 - 16 mmol/L 10/12/2023 6:02 AM [facility] Blood Collection / Unknown 10/12/2023 4:00 AM PRINT LINE TAILER 10/12/2023 5:07 AM PRINT LINE TAILER Erik Chairez MD CHEMISTRY ORDERABLES Final Resul t [facility] CLIA# [id number] [address] [place] [address] documented in this encounter Visit Diagnoses Not on filedocumented in this encounter Additional Health Concerns Infection Onset Date Last Indicated Resolved Time CRE-CP Comment:10/09/23 Klebsiella pneumoniae, Sputum 10/09/2023 10/09/2023 05/28/2024 2:37 PM C DT 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
--- OUTSIDE RECORDS SUMMARY | 2025-05-21 13:24 | XMS_ITS | Clinical Summary ---
Author Organization [facility] Address [address] [place] [address] Care Team Providers Care Welt Butter Hand Name Role Phone Demond Stark MD Primary Care Provider [phone] Encounters Date Type Department Care Team Description 04/07/2025 Documentation Only [facility] Alan. [address] [place] [id number] Raúl Ross MD 03/31/2025 Orders Only [facility] Alan. [address] [place] [phone] Rula Caballero MA Hypertension (Primary Dx); Long-term drug therapy 03/10/2025 Documentation Only [facility] Alan. [address] [place] [phone] Raúl Ross MD 03/02/2025 Orders Only [facility] Alan. [address] [place] [phone] Rula [address] MA Renal insufficiency (Primary Dx); Hypertension; Other proteinuria 03/02/2025 Orders Only [facility] AlanKasie [address] [place] [phone] Rula [address]allreo MA Renal insufficiency (Primary Dx); Proteinuria, not [...] Vaccine (#1) 2025 07/24/2010, 2009 Care Teams Welt Butter Hand Relationship Specialty Start Date End Date Demond Stark MD [address] [place] [address] PCP - General Family Medicine 06/04/24
--- OUTSIDE RECORDS SUMMARY | 2025-05-21 13:24 | XMS_ITS | Encounter Summary ---
Author Organization [facility] Address [address] [place] [address] Care Team Providers Care Dehairing Machine Tender Name Role Phone Unavailable Primary Care Provider Unavailabl e Encounter Details Date Type Department Care Team (Late st Contact Info) Description 10/14/2023 Lab Requisition [facility] Laboratory Services [address] [place] [address] [place] [address] [place] [address] Social History Tobacco Use Types Packs/Day Years Used Date Smoking Tobacco: Never Assessed Sex and Gender Information Value Date Recorded Sex Assigned at Not on file Legal Sex Male 9:18 AM MEDICAL RECORDS ADMINISTRATOR Gender Identity Not on file Sexual Orientation Not on file documented as of this encounter Plan of Treatment Not on file documented as of this encounter Procedures Procedure Name Priority Date/Time Associated Diagnosis Comments CBC WITH DIFFERENTIAL Routine 10/14/2023 2:35 AM MEDICAL RECORDS ADMINISTRATOR TRIGLYCERIDE Routine 10/14/2023 2:35 AM MEDICAL RECORDS ADMINISTRATOR PHOSPHORUS Routine 10/14/2023 2:35 AM MEDICAL RECORDS ADMINISTRATOR MAGNESIUM LEVEL Routine 10/14/2023 2:35 AM MEDICAL RECORDS ADMINISTRATOR COMPREHENSIVE METABOLIC PANEL Routine 10/14/2023 2:35 AM MEDICAL RECORDS ADMINISTRATOR documented in this encounter Results * (ABNORMAL) TRIGLYCERIDE (10/14/2023 2:35 AM MEDICAL RECORDS ADMINISTRATOR) TRIGLYCERIDE 161(H) <150 mg/dL 10/14/2023 8:26 AM MEDICAL RECORDS ADMINISTRATOR [facility] LABORATORY SERVICES [facility] Blood Collection / Unknown 10/14/2023 2:35 AM MEDICAL RECORDS ADMINISTRATOR 10/14/2023 7:22 AM MEDICAL RECORDS ADMINISTRATOR Narrative [facility] - 10/14/2023 8:26 AM MEDICAL RECORDS ADMINISTRATOR TRIGLYCERIDES mg/dL Normal < 150 Borderline High 150 - 199 High 200 - 499 Very High >= 500 Based on AHA/NCEP Guidelines. us Erik Chairez MD CHEMISTRY ORDERABLES Final Resul t Performing Organization Address City/[facility]/ZIP Co de Phone Number [facility] CLIA# [id number] [place] [address] * PHOSPHORUS (10/14/2023 2:35 AM MEDICAL RECORDS ADMINISTRATOR) PHOSPHORUS 3.4 2.5 - 4.5 mg/dL 10/14/2023 8:26 AM MEDICAL RECORDS ADMINISTRATOR [facility] Blood Collection / Unknown 10/14/2023 2:35 AM MEDICAL RECORDS ADMINISTRATOR 10/14/2023 7:22 AM MEDICAL RECORDS ADMINISTRATOR us Erik Chairez MD CHEMISTRY ORDERABLES Final Resul t Performing Organization Address City/[facility] Co de Phone Number [id number] [place] [address] * MAGNESIUM LEVEL (10/14/2023 2:35 AM MEDICAL RECORDS ADMINISTRATOR) MAGNESIUM 2.5 1.6 - 2.6 mg/dL 10/14/2023 8:26 AM MEDICAL RECORDS ADMINISTRATOR [facility] [employer] [facility] Blood Collection / Unknown 10/14/2023 2:35 AM MEDICAL RECORDS ADMINISTRATOR 10/14/2023 7:22 AM MEDICAL RECORDS ADMINISTRATOR us Erik Chairez MD CHEMISTRY ORDERABLES Final Resul t Performing Organization Address City/[facility]/ZIP Co de Phone Number [facility] [id number] [place] [address] * (ABNORMAL) CBC WITH DIFFERENTIAL (10/14/2023 2:35 AM MEDICAL RECORDS ADMINISTRATOR) [facility] WBC 9.2 4.5 - 10.5 K/uL 10/14/2023 8:02 AM [facility] LABORATORY [facility] RBC 3.58(L) 4.50 - 5.40 M/uL 10/14/2023 8:02 AM [facility] HEMOGLOBIN 11.0(L) 13.6 - 16.5 g/dL 10/14/2023 8:02 AM [facility] LABORATORY [facility] HEMATOCRIT 33.5(L) 40.0 - 48.0 % 10/14/2023 8:02 AM [facility] LABORATORY [facility] MCV 93.6 82.0 - 99.0 fL 10/14/2023 8:02 AM [facility] LABOR[facility] MCH 30.6 27.8 - 34.5 pg 10/14/2023 8:02 AM [facility] [employer] [facility] MCHC 32.7 32.5 - 35.5 g/dL 10/14/2023 8:02 AM [facility] [employer] [facility] RDW 17.7(H) 11.5 - 14.5 % 10/14/2023 8:02 AM [facility] LABORATORY [facility] PLATELETS 214 160 - 420 K/uL 10/14/2023 8:02 AM [facility] [employer] [facility] MPV 9.2 8.7 - 12.7 fL 10/14/2023 8:02 AM [facility] [employer] [facility] NEUTROPHILS 58 % 10/14/2023 8:02 AM [facility] LABORATORY [facility] LYMPHOCYTES 24 % 10/14/2023 8:02 AM [facility] LABORATORY [facility] MONOCYTES 8 % 10/14/2023 8:02 AM MEDICAL RECORDS ADMINISTRATOR [facility] LABORATORY [facility] EOSINOPHILS 9 % 10/14/2023 8:02 AM [facility] LABORATORY [facility] BASOPHILS 0 % 10/14/2023 8:02 AM [facility] LABORATORY [facility] NEUTROPHIL ABSOLUTE 5.40 1.90 - 7.00 K/uL 10/14/2023 8:02 AM [facility] [employer] [facility] LYMPHOCYTE ABSOLUTE 2.20 0.70 - 4.50 K/uL 10/14/2023 8:02 AM [facility] LABORATORY [facility] MONOCYTE ABSOLUTE 0.70 0.10 - 1.30 K/uL 10/14/2023 8:02 AM [facility] EOSINOPHIL ABSOLUTE 0.90(H) 0.00 - 0.70 K/uL 10/14/2023 8:02 AM [facility] LABORATORY [facility] BASOPHILS ABSOLUTE 0.00 0.00 - 0.20 K/uL 10/14/2023 8:02 AM [facility] Blood Collection / Unknown 10/14/2023 2:35 AM MEDICAL RECORDS ADMINISTRATOR 10/14/2023 7:22 AM MEDICAL RECORDS ADMINISTRATOR Erik Chairez MD HEMATOLOGY ORDERABLES Final Resu lt [facility] CLIA# [id number] [address] [place] [address] * (ABNORMAL) COMPREHENSIVE METABOLIC PANEL (10/14/2023 2:35 AM MEDICAL RECORDS ADMINISTRATOR) SODIUM 135(L) 136 - 145 mmol/L 10/14/2023 8:26 AM [facility] POTASSIUM 4.0 3.4 - 5.1 mmol/L 10/14/2023 8:26 AM [facility] CHLORIDE 97(L) 98 - 107 mmol/L 10/14/2023 8:26 AM [facility] CO2 24 22 - 29 mmol/L 10/14/2023 8:26 AM [facility] CALCIUM 9.5 8.6 - 10.4 mg/dL 10/14/2023 8:26 AM [facility] BUN 36(H) 6 - 20 mg/dL 10/14/2023 8:26 AM [facility] CREATININE 1.18(H) 0.67 - 1.17 mg/dL 10/14/2023 8:26 AM [facility] [employer] [facility] Comment:The GFR result is no t clinically significant on patients <18 or >70 years of age. GLUCOSE 84 74 - 99 mg/dL 10/14/2023 8:26 AM [facility] TOTAL PROTEIN 7.4 6.3 - 8.7 g/dL 10/14/2023 8:26 AM [facility] ALBUMIN 3.6 3.5 - 5.2 g/dL 10/14/2023 8:26 AM [facility] BILIRUBIN TOTAL 0.6 0.2 - 1.1 mg/dL 10/14/2023 8:26 AM [facility] ALKALINE PHOSPHATASE 99 40 - 150 U/L 10/14/2023 8:26 AM [facility] AST 22 0 - 41 U/L 10/14/2023 8:26 AM [facility] ALT 16 0 - 41 U/L 10/14/2023 8:26 AM [facility] GFR >60 mL/min/1.7 3 sq meter 10/14/2023 8:26 AM [facility] Comment:eGFR calculated with 2020 CKD-EPI equation. Vegetarian diet, extremely high or low muscle mass, and may affect results. Cystatin C with Glomerular Filtration Rate is a suitable alternative for these patients. 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
--- OUTSIDE RECORDS SUMMARY | 2025-05-21 13:24 | XMS_ITS | Encounter Summary ---
Author Organization [facility] [facility] Address [address] [place] [address] Care Team Providers Care Plug Cutting Machine Operator Name Role Phone Unavailable Primary Care Provider Unavailabl e Encounter Details Date Type Department Care Team (Late st Contact Info) Description 10/11/2023 Lab Requisition [facility] Laboratory Services [address] [place] [address] [place] [address] [place] [address] Social History Tobacco Use Types Packs/Day Years Used Date Smoking Tobacco: Never Assessed Sex and Gender Information Value Date Recorded Sex Assigned at Not on file Legal Sex Male 9:18 AM SHOE SINGER Gender Identity Not on file Sexual Orientation Not on file documented as of this encounter Plan of Treatment Not on file documented as of this encounter Procedures Procedure Name Priority Date/Time Associated Diagnosis Comments CBC WITH DIFFERENTIAL Routine 10/11/2023 3:30 AM SHOE SINGER TRIGLYCERIDE Routine 10/11/2023 3:30 AM SHOE SINGER MAGNESIUM LEVEL Routine 10/11/2023 3:30 AM SHOE SINGER RENAL FUNCTION PANEL Routine 10/11/2023 3:30 AM SHOE SINGER documented in this encounter Results * (ABNORMAL) TRIGLYCERIDE (10/11/2023 3:30 AM SHOE SINGER) TRIGLYCERIDE 192(H) <150 mg/dL 10/11/2023 6:28 AM SHOE SINGER [facility] Blood 10/11/2023 3:30 AM SHOE SINGER 10/11/2023 5:43 AM SHOE SINGER Narrative [facility] [employer] [facility] - 10/11/2023 6:28 AM SHOE SINGER TRIGLYCERIDES mg/dL Normal < 150 Borderline High 150 - 199 High 200 - 499 Very High >= 500 Based on AHA/NCEP Guidelines. Erik Chairez MD CHEMISTRY ORDERABLES Final Resul t Performing Organization Address City/[facility]/ZIP Co de Phone Number [facility] CLIA# [id number] [place] [address] * MAGNESIUM LEVEL (10/11/2023 3:30 AM SHOE SINGER) MAGNESIUM 2.2 1.6 - 2.6 mg/dL 10/11/2023 6:28 AM [facility] Blood 10/11/2023 3:30 AM SHOE SINGER 10/11/2023 5:43 AM SHOE SINGER Erik Chairez MD CHEMISTRY ORDERABLES Final Resul t Performing Organization Address City/[facility]/ZIP Co de Phone Number [facility] CLIA# [id number] [place] [address] * (ABNORMAL) CBC WITH DIFFERENTIAL (10/11/2023 3:30 AM SHOE SINGER) WBC 8.8 4.5 - 10.5 K/uL 10/11/2023 6:05 AM [facility] [employer] [facility] RBC 3.43(L) 4.50 - 5.40 M/uL 10/11/2023 6:05 AM [facility] [employer] [facility] HEMOGLOBIN 10.5(L) 13.6 - 16.5 g/dL 10/11/2023 6:05 AM [facility] HEMATOCRIT 32.7(L) 40.0 - 48.0 % 10/11/2023 6:05 AM [facility] MCV 95.4 82.0 - 99.0 fL 10/11/2023 6:05 AM [facility] MCH 30.7 27.8 - 34.5 pg 10/11/2023 6:05 AM [facility] LABORATORY [facility] MCHC 32.2(L) 32.5 - 35.5 g/dL 10/11/2023 6:05 AM [facility] LABORAT[facility] RDW 18.7(H) 11.5 - 14.5 % 10/11/2023 6:05 AM [facility] LABORAT[facility] PLATELETS 218 160 - 420 K/uL 10/11/2023 6:05 AM [facility] LABOR[facility] MPV 9.3 8.7 - 12.7 fL 10/11/2023 6:05 AM SHOE SINGER [facility] NEUTROPHILS 67 % 10/11/2023 6:05 AM SHOE SINGER [facility] LYMPHOCYTES 18 % 10/11/2023 6:05 AM SHOE SINGER [facility] MONOCYTES 7 % 10/11/2023 6:05 AM SHOE SINGER [facility] EOSINOPHILS 7 % 10/11/2023 6:05 AM [facility] LABOR[facility] BASOPHILS 1 % 10/11/2023 6:05 AM SHOE SINGER [facility] NEUTROPHIL ABSOLUTE 5.90 1.90 - 7.00 K/uL 10/11/2023 6:05 AM [facility] LABOR[facility] LYMPHOCYTE ABSOLUTE 1.60 0.70 - 4.50 K/uL 10/11/2023 6:05 AM [facility] MONOCYTE ABSOLUTE 0.60 0.10 - 1.30 K/uL 10/11/2023 6:05 AM [facility] EOSINOPHIL ABSOLUTE 0.60 0.00 - 0.70 K/uL 10/11/2023 6:05 AM SHOE SINGER [facility] BASOPHILS ABSOLUTE 0.10 0.00 - 0.20 K/uL 10/11/2023 6:05 AM [facility] LABOR[facility] Blood 10/11/2023 3:30 AM SHOE SINGER 10/11/2023 5:43 AM SHOE SINGER us Erik Chairez MD HEMATOLOGY ORDERABLES Final Resu lt [facility] CLIA# [id number] [address] [place] [address] * (ABNORMAL) RENAL FUNCTION PANEL (10/11/2023 3:30 AM SHOE SINGER) SODIUM 145 136 - 145 mmol/L 10/11/2023 6:28 AM [facility] [employer] [facility] POTASSIUM 4.0 3.4 - 5.1 mmol/L 10/11/2023 6:28 AM [facility] CHLORIDE 106 98 - 107 mmol/L 10/11/2023 6:28 AM [facility] CO2 26 22 - 29 mmol/L 10/11/2023 6:28 AM [facility] CALCIUM 9.3 8.6 - 10.4 mg/dL 10/11/2023 6:28 AM [facility] BUN 38(H) 6 - 20 mg/dL 10/11/2023 6:28 AM [facility] CREATININE 1.38(H) 0.67 - 1.17 mg/dL 10/11/2023 6:28 AM [facility] Comment:The GFR result is no t clinically significant on patients <18 or >70 years of age. GLUCOSE 85 74 - 99 mg/dL 10/11/2023 6:28 AM [facility] ALBUMIN 3.4(L) 3.5 - 5.2 g/dL 10/11/2023 6:28 AM [facility] PHOSPHORUS 3.9 2.5 - 4.5 mg/dL 10/11/2023 6:28 AM [facility] GFR 51 mL/min/1.7 3 sq meter 10/11/2023 6:28 AM [facility] Comment:eGFR calculated with 2020 CKD-EPI equation. Vegetarian diet, extremely high or low muscle mass, and may affect results. Cystatin C with Glomerular Filtration Rate is a suitable alternative for these patients. 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
--- OUTSIDE RECORDS SUMMARY | 2025-05-21 13:24 | XMS_ITS | Encounter Summary ---
Author Organization [facility] Address [address] [place] [address] Care Team Providers Care History Teacher Name Role Phone Unavailable Primary Care Provider Unavailabl e Encounter Details Date Type Department Care Team (Late st Contact Info) Description 10/26/2023 Lab Requisition [facility] Laboratory Services [address] [place] [address] [place] [address] [place] [address] Social History Tobacco Use Types Packs/Day Years Used Date Smoking Tobacco: Never Assessed Sex and Gender Information Value Date Recorded Sex Assigned at Not on file Legal Sex Male 9:18 AM STOCK SHEETS CLEANER INSPECTOR Gender Identity Not on file Sexual Orientation Not on file documented as of this encounter Plan of Treatment Not on file documented as of this encounter Procedures Procedure Name Priority Date/Time Associated Diagnosis Comments CBC WITH DIFFERENTIAL Routine 10/26/2023 3:20 AM STOCK SHEETS CLEANER INSPECTOR BASIC METABOLIC PANEL Routine 10/26/2023 3:20 AM STOCK SHEETS CLEANER INSPECTOR documented in this encounter Results * (ABNORMAL) CBC WITH DIFFERENTIAL (10/26/2023 3:20 AM STOCK SHEETS CLEANER INSPECTOR) WBC 9.2 4.5 - 10.5 K/uL 10/26/2023 5:32 AM STOCK SHEETS CLEANER INSPECTOR [facility] RBC 3.83(L) 4.50 - 5.40 M/uL 10/26/2023 5:32 AM STOCK SHEETS CLEANER INSPECTOR [facility] HEMOGLOBIN 11.4(L) 13.6 - 16.5 g/dL 10/26/2023 5:32 AM STOCK SHEETS CLEANER INSPECTOR [facility] HEMATOCRIT 35.4(L) 40.0 - 48.0 % 10/26/2023 5:32 AM STOCK SHEETS CLEANER INSPECTOR [facility] MCV 92.4 82.0 - 99.0 fL 10/26/2023 5:32 AM STOCK SHEETS CLEANER INSPECTOR [facility] MCH 29.6 27.8 - 34.5 pg 10/26/2023 5:32 AM STOCK SHEETS CLEANER INSPECTOR [facility] MCHC 32.0(L) 32.5 - 35.5 g/dL 10/26/2023 5:32 AM STOCK SHEETS CLEANER INSPECTOR [facility] RDW 17.3(H) 11.5 - 14.5 % 10/26/2023 5:32 AM STOCK SHEETS CLEANER INSPECTOR [facility] PLATELETS 240 160 - 420 K/uL 10/26/2023 5:32 AM STOCK SHEETS CLEANER INSPECTOR [facility] MPV 9.3 8.7 - 12.7 fL 10/26/2023 5:32 AM STOCK SHEETS CLEANER INSPECTOR [facility] NEUTROPHILS 69 % 10/26/2023 5:32 AM STOCK SHEETS CLEANER INSPECTOR [facility] LYMPHOCYTES 21 % 10/26/2023 5:32 AM STOCK SHEETS CLEANER INSPECTOR [employer] LABORATORY SERVICES [facility] MONOCYTES 6 % 10/26/2023 5:32 AM STOCK SHEETS CLEANER INSPECTOR [facility] EOSINOPHILS 4 % 10/26/2023 5:32 AM STOCK SHEETS CLEANER INSPECTOR [facility] BASOPHILS 1 % 10/26/2023 5:32 AM STOCK SHEETS CLEANER INSPECTOR [facility] NEUTROPHIL ABSOLUTE 6.30 1.90 - 7.00 K/uL 10/26/2023 5:32 AM STOCK SHEETS CLEANER INSPECTOR [facility] LYMPHOCYTE ABSOLUTE 1.90 0.70 - 4.50 K/uL 10/26/2023 5:32 AM STOCK SHEETS CLEANER INSPECTOR [facility] MONOCYTE ABSOLUTE 0.50 0.10 - 1.30 K/uL 10/26/2023 5:32 AM STOCK SHEETS CLEANER INSPECTOR [facility] EOSINOPHIL ABSOLUTE 0.40 0.00 - 0.70 K/uL 10/26/2023 5:32 AM STOCK SHEETS CLEANER INSPECTOR [facility] BASOPHILS ABSOLUTE 0.00 0.00 - 0.20 K/uL 10/26/2023 5:32 AM [facility] Blood Collection / Unknown 10/26/2023 3:20 AM STOCK SHEETS CLEANER INSPECTOR 10/26/2023 4:57 AM STOCK SHEETS CLEANER INSPECTOR Erik Chairez MD HEMATOLOGY ORDERABLES Final Resu lt [facility] CLIA# [id number] [facility] [address] * (ABNORMAL) BASIC METABOLIC PANEL (10/26/2023 3:20 AM STOCK SHEETS CLEANER INSPECTOR) SODIUM 137 136 - 145 mmol/L 10/26/2023 5:58 AM [facility] POTASSIUM 4.2 3.4 - 5.1 mmol/L 10/26/2023 5:58 AM [facility] CHLORIDE 100 98 - 107 mmol/L 10/26/2023 5:58 AM [facility] CO2 27 22 - 29 mmol/L 10/26/2023 5:58 AM [facility] CALCIUM 9.8 8.6 - 10.4 mg/dL 10/26/2023 5:58 AM [facility] BUN 39(H) 6 - 20 mg/dL 10/26/2023 5:58 AM [facility] CREATININE 1.01 0.67 - 1.17 mg/dL 10/26/2023 5:58 AM [facility] Comment:The GFR result is no t clinically significant on patients <18 or >70 years of age. GLUCOSE 110(H) 74 - 99 mg/dL 10/26/2023 5:58 AM [facility] GFR >60 mL/min/1.7 3 sq meter 10/26/2023 5:58 AM [facility] Comment:eGFR calculated with 2020 CKD-EPI equation. Vegetarian diet, extremely high or low muscle mass, and may affect results. Cystatin C with Glomerular Filtration Rate is a suitable alternative for these patients. ANION GAP 10 8 - 16 mmol/L 10/26/2023 5:58 AM STOCK SHEETS CLEANER INSPECTOR [facility] Blood Collection / Unknown 10/26/2023 3:20 AM STOCK SHEETS CLEANER INSPECTOR 10/26/2023 4:57 AM STOCK SHEETS CLEANER INSPECTOR Erik Chairez MD CHEMISTRY ORDERABLES Final Resul t [facility] CLIA# [id number] [place] [address] documented in this encounter Visit Diagnoses Not on filedocumented in this encounter Additional Health Concerns Infection Onset Date Last Indicated Resolved Time 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
--- OUTSIDE RECORDS SUMMARY | 2025-05-21 13:24 | XMS_ITS | Encounter Summary ---
Author Organization [facility] Address [address] [facility] [place] [address] Care Team Providers Care Hand Assembler Name Role Phone Demond Stark MD Primary Care Provider [phone] Encounter Details Date Type Department Care Team (Late Contact Info) Description 06/28/2023 Lab Requisition [facility] DermPath Lab [address] [place] [address] Jaxon Anaya MD [address] [place] [address] Social History Tobacco Use Types Packs/Day Years Used Date Smoking Tobacco: Former Cigarettes Q uit: 09/23/1969 Smokeless Tobacco: Never Alcohol Use Standard Drinks/Week Comments Yes 0 (1 standard drink = 0.6 oz pur e alcohol) Sex and Gender Information Value Date Recorded Sex Assigned at Not on file Legal Sex Male 5:43 PM PRINT DESIGNER Gender Identity Not on file Sexual Orientation Not on file documented as of this encounter Plan of Treatment Upcoming Encounters Date Type Department Care Team (Late st Contact Info) Description 02/04/2026 9:00 AM CDT Office Visit [facility] - GI [address] [place] [phone] Callie Mendoza DO [address] [facility] 3RD FLOOR DOOR 1 [place] [phone] documented as of this encounter Procedures Procedure Name Priority Date/Time Associated Diagnosis Comments DERMATOPATHOLOGY Routine 06/26/2023 12:0 0 AM CDT documented in this encounter Results * DERMATOPATHOLOGY (06/26/2023 12:00 AM CDT) Case Report Dermatopathology Report Case: [id number] Authorizing Provider: Jaxon Anaya MD Collected: 06/26/2023 12:00 AM Ordering Location: [facility] Derm[facility] Lab Received: 06/28/2023 09:48 AM Pathologist: [...] back.The specimen consists of an ellipse measuring [id number] mm and is oriented with the suture/notch [...] characteristic determined by the Dermatopathology Laboratory at [facility], directed by Dr. Georgina Young. These tests need not be, and therefore are not, approved by the [place] Food and Drug Administration. The tests are used for clinical purposes. Billing Codes Specimen Charges Stain Charges 30836 1 3 4:58 PM CDT DERMATOPATHOLOGY LABORATORY Embedded Images 3 4:58 PM CDT DERMATOPATHOLOGY LABORATORY Pathology/Cytolog y TISSUE SPECIMEN FROM SKIN / Unknown 06/26/2023 06/28/2023 9:48 AM CDT Jaxon Anaya MD LAB - PATHOLOGY/CYTOLOGY ORD ERABLES Final Result DERMATOPATHOLOGY LABORATORY [facility] - Department of Dermatology [facility] Medicine [address] [place] [address], [address] Floor [address] [phone] documented in this encounter Visit Diagnoses Not on filedocumented in this encounter Care Teams Hand Assembler Relationship Specialty Start Date End Date Demond Stark MD [address] [place] [address] PCP - General 10/03/15 documented as of this encounter
--- OUTSIDE RECORDS SUMMARY | 2025-05-21 13:24 | XMS_ITS | Clinical Summary ---
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
--- OUTSIDE RECORDS SUMMARY | 2025-05-21 13:24 | XMS_ITS | Encounter Summary ---
Author Organization [facility] Address [address] [place] [address] Care Team Providers Care Bundle Cutter Name Role Phone Demond Stark MD Primary Care Provider [phone] Encounter Details Date Type Department Care Team (Late st Contact Info) Description 11/06/2024 Orders Only [facility] [address] [place] [address] Scanning, Provider Social History Tobacco Use Types [...] on file Legal Sex Male 8:49 AM MANAGER INTELLIGENCE Gender Identity Not on file Sexual [...] on filedocumented in this encounter Care Teams Bundle Cutter Relationship Specialty Start Date End Date Demond Stark MD PCP - General 07/23/11 documented as of this encounter
--- OUTSIDE RECORDS SUMMARY | 2025-05-21 13:24 | XMS_ITS | Clinical Summary ---
Author Organization [facility] [employer] Address [address] [place] [address] Care Team Providers Care Machine Presser Name Role Phone Demond Stark MD Primary Care Provider [phone] Source Comments [facility] [employer],non-owned Affiliates and Associated Physician Practices is amultiple site organization consisting of ambulatory clinics and hospital sitesin [place], [place], [place] and [place]. This disclosure is being madepursuant to the Care Everywhere program and may not contain all information available regarding this patient. Last updated 18.[facility] [employer] Allergies Active Allergy Reactions Criticality Noted Date [...] 07/20/2013 Overview (01/01/2025): Hypertension Coronary arteriosclerosis in [place] artery 12/20 Overview (01/01/2025): CRNRFlaco GROSSMAN VSSL 2009: Non STEMI and CABG x3 (HOBSON to the LAD, sequential RA to OM and D1) History of coronary artery bypass surgery 2009 Overview (01/01/2025): AORTOCORONARY BYPASS Encounters Date Type Department Care Team Description 04/29/2025 1:00 PM CDT Office Visit [facility] - Neurology [address] [facility], [place] [address] Callie Mendoza DO Settu, [place]arp[place]am, VINCE-FINANCIAL REPORTING CONSULTANT Chronic subdural hematoma (HCC) (Primary Dx) 04/29/2025 9:13 AM CDT - 04/29/2025 11:59 PM CDT Hospital Encounter [facility] DIAGNOSTIC RAD [address] [place] [address] Callie Mendoza DO Discharge Disposition: Home or Self Care 04/29/2025 Travel from Last 3 Months Immunizations Immunization [...] heating? Not hard at all 12/25/2024 [facility] [place] of Occupat ional Health - Occupational Stress [...] time in the past [address] [facility], were you homeless or living in a prison (including now)? 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 Male 5:43 PM MEDIA SUPERVISOR Gender Identity Not on file Sexual [...] Description 02/04/2026 9:00 AM CDT Office Visit [facility] GI [address] [facility] [place] [address] KellyCallieDO [address] [facility] 3RD FLOOR DOOR 1 [place] [phone] Health Maintenance Due Date Last Done Comments [...] supplements as ordered Collaborate with the clinical binder sorter Oral care Use soft toothbrushes Keep hydrated [...] ult from Last 3 Months Insurance MEDICARE ANTHEM ANTHEM Member Subscriber Plan / Payer (Ef fective 2006-Present) Name:Omar Kimball Relation to Subscriber:Self Name:Omar Kimball Payer ID:[id number] (NAIC) Type:Commercial Address: [address] [place] [id number] MEDICARE Advance Directives * Full Code (Latest Code Status on File) Date Activated Date Inactivated Comments 12/22/2024 4:39 PM 12/25/2024 7:01 PM Care Teams Machine Presser Relationship Specialty Start Date End Date Demond Stark MD [address] [place] [address] PCP - General 10/03/15
--- OUTSIDE RECORDS SUMMARY | 2025-05-21 13:24 | XMS_ITS | Clinical Summary ---
Author Organization [facility] Address [address] [place] [address] Care Team Providers Care Welding Lead Burner Name Role Phone Demond Stark MD Primary Care Provider [phone] Allergies Active Allergy Reactions Criticality Noted Date Comments Diphenhydramine Hallucinations Medium 11/27/2023 Was not able to sleep and made him more anxious Lisinopril Cough Low Reaction: Cough, Pravastatin Muscle pain Medium Reaction: Muscular Pain, Quetiapine Other (See comments) Low 06/05/2024 Hallucinations, insomnia Simvastatin Muscle pain Medium Reaction: Muscular Pain, Sfacjql-Ajn-Duj Reductase Inhibitors Muscle pain,Other (See comments) Medium 10/03/2015 Pt reports leg weakness/heavine ss when taking zocor. Medications levothyroxine (SYNTHROID) 112 mcg tablet Take 1 tablet (112 mcg total) by mouth early childhood before breakfast Active aspirin 81 mg tablet [...] (COZAAR) 50 mg tabletIndications:Co ronary arteriosclerosis in [place] artery,Cardiomyopath y, unspecified type (HCC) Take 1 tablet (50 mg total) by mouth daily 90 tablet 3 03/16/20 25 026 Active Active Problems Problem Noted Date Diagnosed Date Cardiomyopathy 03/16/2025 Nonrheumatic aortic (valve) stenosis 03/16/2025 Dysfunction of right eustachian tube 08/31/2024 Assessment & Plan (10/05/2024 10:54 AM PADDING GLUER): Avoid ear cleaning techniques Avoid water to ears Follow up in 9 months for right ear tube check, earlier with ear drainage Assessment & Plan (08/31/2024 11:40 AM PADDING GLUER): Right myringotomy with T-tube placement Risks and [...] 07/09/2024 Assessment & Plan (08/31/2024 11:39 AM PADDING GLUER): Right myringotomy with T-tube placement Risks and [...] 08/07/2017 Assessment & Plan (08/07/2017 6:01 PM PADDING GLUER): Has had elevated LFTs and a fatty liver. Bradycardia 08/07/2017 Assessment & Plan (08/07/2017 5:58 PM PADDING GLUER): Asymptomatic bradycardia, on low-dose metoprolol which may eventually need to be reduced or discontinued. Traumatic subdural hematoma of neuraxis 10/15/19 17 Overview (12/28/2016): Traumatic subdural hematoma without loss of consciousness, sequela Statin intolerance 10/15/2016 Overview (12/28/2016): Statin intolerance Essential hypertension 07/20/2013 Overview (12/28/2016): Hypertension Assessment & Plan (08/07/2017 5:57 PM PADDING GLUER): Hypertension is not under good control; reviewing [...] HYPERLIPIDEMIA Assessment & Plan (08/07/2017 6:03 PM PADDING GLUER): Has refued further attempts at statin therapy. History of coronary artery bypass surgery 2009 Overview (12/26/2016): AORTOCORONARY BYPASS Coronary arteriosclerosis in [place] artery 12/20 Overview (08/07/2017): CRNRY ATHRSCL NATVE VSSL 2009: Non STEMI and CABG x3 (HOBSON to the LAD, sequential RA to OM and D1) Assessment & Plan (08/07/2017 6:00 PM PADDING GLUER): 2009: Non STEMI and CABG x3 (HOBSON [...] 03/04/2018 Assessment & Plan (08/07/2017 5:58 PM PADDING GLUER): Patient is going to have knee surgery soon and needs preoperative clearance. Coronary artery disease appears stable. Low risk for cardiac event with proposed surgery. 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/2009 03/25/2023 Overview (12/28/2016): SUBENDO INFARCT, SUBSEQ Encounters Date Type Department Care Team Description 03/16/2025 2:30 PM CDT Office Visit [facility] Cardiology [address] [place] [phone] Mando Luna MD Persistent atrial fibrillation (HCC) (Primary Dx); Coronary arteriosclerosis in [place] artery; Chronic anticoagulation; Nonrheumatic aortic (valve) stenosis; Cardiomyopathy, unspecified type (HCC) 03/16/2025 Orders Only [facility] Cardiology [address] [place] [phone] ProviderTaylor MD 03/01/2025 Telephone [facility] Cardiology [address] [place] [phone] Mando Luna MD from Last 3 Months [...] 2 Geena Relation Name Status Comments Brother Anli Father Alive Mother Sister 1 Sister 2 [...] on file Legal Sex Male 8:49 AM PADDING GLUER Gender Identity Not on file Sexual Orientation Not on file Obstetrics History Last Filed Vital Signs Vital Sign Reading Time Taken Comments Blood Pressure 138/70 03/16/2025 2:40 PM CDT Pulse 88 03/16/2025 2:40 PM CDT Temperature 36.3 C (97.4 F) 09/22/2024 1:04 PM PADDING GLUER Respiratory Rate 18 09/22/2024 1:04 PM PADDING GLUER Oxygen Saturation 97% 03/16/2025 2:40 PM CDT [...] Pneumococcal vaccine 65+ (2 of 2 - PPSV23, PCV20, or PCV21) 01/02/2017 11/07/2016 Influenza Vaccine (#1) 2025 9, 07/29/2018, 08/12/2013, Additional history exists Fall Risk Assessment 09/01/2025 09/01/2024 Medical Devices Implanted Type Area Veneer Slicing Machine Operator Device Identifier Shelf Expiration Date Model / Serial / Lot [employer] 1.32mm 4.8mm Modify Ear T Tube Ventilation Ultrasil Sterile Blue [id number] - [id number] Implanted:Qty: 1 on 09/22/2024 by Laura Oakes DO at [facility] Right: Ear [employer] 07/13/2034 [id number] / / [id number] Insurance * Guarantor: Omar Ryan Account Type Relation to Patient Date of Phone Billing Address Personal/Family Self [address] [facility] [address] [place] [address] MEDICARE MEDICARE [facility] MEDICARE SUPPLEMENT Care Teams Welding Lead Burner Relationship Specialty Start Date End Date Demond Stark MD PCP - General 07/23/11
--- OUTSIDE RECORDS SUMMARY | 2025-05-21 13:25 | XMS_ITS | Encounter Summary ---
Author Organization [facility] Address [address] [place] [address] Care Team Providers Care Restaurant Hourly Team Member Name Role Phone Unavailable Primary Care Provider Unavailabl e Encounter Details Date Type Department Care Team (Late st Contact Info) Description 11/05/2023 Lab Requisition [facility] Laboratory Services [address] [place] [address] [place] [address] [place] [address] Social History Tobacco Use Types Packs/Day Years Used Date Smoking Tobacco: Never Assessed Sex and Gender Information Value Date Recorded Sex Assigned at Not on file Legal Sex Male 9:18 AM VICE PRESIDENT FOR INSTRUCTION Gender Identity Not on file Sexual Orientation Not on file documented as of this encounter Plan of Treatment Not on file documented as of this encounter Procedures Procedure Name Priority Date/Time Associated Diagnosis Comments DIFFERENTIAL, MANUAL Routine 11/05/2023 3:30 AM VICE PRESIDENT FOR INSTRUCTION CBC WITH DIFFERENTIAL Routine 11/05/2023 3:30 AM VICE PRESIDENT FOR INSTRUCTION documented in this encounter Results * MANUAL DIFFERENTIAL (11/05/2023 3:30 AM VICE PRESIDENT FOR INSTRUCTION) PLATELET EST. Consistent w Count 11/05/2023 6:05 AM VICE PRESIDENT FOR INSTRUCTION [facility] RBC MORPHOLOGY Normal 11/05/2023 6:05 AM VICE PRESIDENT FOR INSTRUCTION [facility] Blood Collection / Unknown 11/05/2023 3:30 AM VICE PRESIDENT FOR INSTRUCTION 11/05/2023 5:05 AM VICE PRESIDENT FOR INSTRUCTION Erik Chairez MD HEMATOLOGY ORDERABLES COM Final Result [facility] CLIA# [id number] [address] [place] [address] * (ABNORMAL) CBC WITH DIFFERENTIAL (11/05/2023 3:30 AM VICE PRESIDENT FOR INSTRUCTION) [facility] WBC 7.5 4.5 - 10.5 K/uL 11/05/2023 6:05 AM [facility]OR[facility] RBC 3.81(L) 4.50 - 5.40 M/uL 11/05/2023 6:05 AM [facility] HEMOGLOBIN 11.9(L) 13.6 - 16.5 g/dL 11/05/2023 6:05 AM [facility] HEMATOCRIT 35.6(L) 40.0 - 48.0 % 11/05/2023 6:05 AM [facility] [employer] [facility] MCV 93.5 82.0 - 99.0 fL 11/05/2023 6:05 AM [facility] [employer] [facility] MCH 31.2 27.8 - 34.5 pg 11/05/2023 6:05 AM [facility] [employer] [facility] MCHC 33.3 32.5 - 35.5 g/dL 11/05/2023 6:05 AM [facility] [employer] [facility] RDW 17.0(H) 11.5 - 14.5 % 11/05/2023 6:05 AM [facility] [employer] [facility] PLATELETS 243 160 - 420 K/uL 11/05/2023 6:05 AM [facility] [employer] [facility] MPV 9.4 8.7 - 12.7 fL 11/05/2023 6:05 AM [facility] NEUTROPHILS 63 % 11/05/2023 6:05 AM VICE PRESIDENT FOR INSTRUCTION [facility] [employer] [facility] LYMPHOCYTES 23 % 11/05/2023 6:05 AM VICE PRESIDENT FOR INSTRUCTION [facility] LABORATORY [facility] MONOCYTES 5 % 11/05/2023 6:05 AM [facility] EOSINOPHILS 9 % 11/05/2023 6:05 AM VICE PRESIDENT FOR INSTRUCTION [facility] BASOPHILS 1 % 11/05/2023 6:05 AM VICE PRESIDENT FOR INSTRUCTION [facility]OR[facility] NEUTROPHIL ABSOLUTE 4.70 1.90 - 7.00 K/uL 11/05/2023 6:05 AM VICE PRESIDENT FOR INSTRUCTION [facility] LABORATORY [facility] LYMPHOCYTE ABSOLUTE 1.70 0.70 - 4.50 K/uL 11/05/2023 6:05 AM VICE PRESIDENT FOR INSTRUCTION [facility] LABORATORY [facility] MONOCYTE ABSOLUTE 0.40 0.10 - 1.30 K/uL 11/05/2023 6:05 AM VICE PRESIDENT FOR INSTRUCTION [facility]OR[facility] EOSINOPHIL ABSOLUTE 0.70 0.00 - 0.70 K/uL 11/05/2023 6:05 AM VICE PRESIDENT FOR INSTRUCTION [facility] BASOPHILS ABSOLUTE 0.00 0.00 - 0.20 K/uL 11/05/2023 6:05 AM VICE PRESIDENT FOR INSTRUCTION [facility] Blood Collection / Unknown 11/05/2023 3:30 AM VICE PRESIDENT FOR INSTRUCTION 11/05/2023 5:05 AM VICE PRESIDENT FOR INSTRUCTION Erik Chairez MD HEMATOLOGY ORDERABLES Final Resu lt [facility] CLIA# [id number] [place] [address] documented in this encounter Visit Diagnoses Not on filedocumented in this encounter Additional Health Concerns Infection Onset Date Last Indicated Resolved Time 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
--- OUTSIDE RECORDS SUMMARY | 2025-05-21 13:25 | XMS_ITS | Encounter Summary ---
Author Organization [facility] Address [address] [place] [address] Care Team Providers Care Raw Silk Grader Name Role Phone Unavailable Primary Care Provider Unavailabl e Encounter Details Date Type Department Care Team (Late st Contact Info) Description 11/04/2023 Lab Requisition [facility] Laboratory Services [address] [place] [address] [place] [address] [place] [address] Social History Tobacco Use Types Packs/Day Years Used Date Smoking Tobacco: Never Assessed Sex and Gender Information Value Date Recorded Sex Assigned at Not on file Legal Sex Male 9:18 AM CONVOLUTE TUBE WINDER Gender Identity Not on file Sexual Orientation Not on file documented as of this encounter Plan of Treatment Not on file documented as of this encounter Procedures Procedure Name Priority Date/Time Associated Diagnosis Comments CBC WITH DIFFERENTIAL Routine 11/04/2023 3:45 AM CONVOLUTE TUBE WINDER BASIC METABOLIC PANEL Routine 11/04/2023 3:45 AM CONVOLUTE TUBE WINDER documented in this encounter Results * (ABNORMAL) CBC WITH DIFFERENTIAL (11/04/2023 3:45 AM CONVOLUTE TUBE WINDER) WBC 12.2(H) 4.5 - 10.5 K/uL 11/04/2023 8:52 AM CONVOLUTE TUBE WINDER [facility] - [facility] RBC 4.11(L) 4.50 - 5.40 M/uL 11/04/2023 8:52 AM CONVOLUTE TUBE WINDER [facility] HEMOGLOBIN 11.7(L) 13.6 - 16.5 g/dL 11/04/2023 8:52 AM CONVOLUTE TUBE WINDER [facility] HEMATOCRIT 37.9(L) 40.0 - 48.0 % 11/04/2023 8:52 AM CONVOLUTE TUBE WINDER [facility] SERVICES [facility] MCV 92.2 82.0 - 99.0 fL 11/04/2023 8:52 AM CONVOLUTE TUBE WINDER [facility] MCH 28.5 27.8 - 34.5 pg 11/04/2023 8:52 AM CONVOLUTE TUBE WINDER [facility] SERVICES [facility] MCHC 30.9(L) 32.5 - 35.5 g/dL 11/04/2023 8:52 AM CONVOLUTE TUBE WINDER [facility] RDW 17.0(H) 11.5 - 14.5 % 11/04/2023 8:52 AM CONVOLUTE TUBE WINDER [facility] PLATELETS 272 160 - 420 K/uL 11/04/2023 8:52 AM CONVOLUTE TUBE WINDER [facility] MPV 10.0 8.7 - 12.7 fL 11/04/2023 8:52 AM CONVOLUTE TUBE WINDER [facility] NEUTROPHILS 45 % 11/04/2023 8:52 AM CONVOLUTE TUBE WINDER [facility] LYMPHOCYTES 38 % 11/04/2023 8:52 AM CONVOLUTE TUBE WINDER [facility] MONOCYTES 7 % 11/04/2023 8:52 AM CONVOLUTE TUBE WINDER [facility] EOSINOPHILS 11 % 11/04/2023 8:52 AM CONVOLUTE TUBE WINDER [facility] BASOPHILS 1 % 11/04/2023 8:52 AM CONVOLUTE TUBE WINDER [facility] NEUTROPHIL ABSOLUTE 5.50 1.90 - 7.00 K/uL 11/04/2023 8:52 AM CONVOLUTE TUBE WINDER [facility] SERVICES [facility] LYMPHOCYTE ABSOLUTE 4.60(H) 0.70 - 4.50 K/uL 11/04/2023 8:52 AM CONVOLUTE TUBE WINDER [facility] MONOCYTE ABSOLUTE 0.80 0.10 - 1.30 K/uL 11/04/2023 8:52 AM CONVOLUTE TUBE WINDER [facility] SERVICES [facility] EOSINOPHIL ABSOLUTE 1.30(H) 0.00 - 0.70 K/uL 11/04/2023 8:52 AM CONVOLUTE TUBE WINDER [facility] SERVICES [facility] BASOPHILS ABSOLUTE 0.10 0.00 - 0.20 K/uL 11/04/2023 8:52 AM [facility] Apieron [facility] Blood 11/04/2023 3:45 AM CONVOLUTE TUBE WINDER 11/04/2023 8:24 AM CONVOLUTE TUBE WINDER Erik Chairez MD HEMATOLOGY ORDERABLES Final Resu lt [facility] CLIA# [id number] [address] [place] [address] * (ABNORMAL) BASIC METABOLIC PANEL (11/04/2023 3:45 AM CONVOLUTE TUBE WINDER) SODIUM 144 136 - 145 mmol/L 11/04/2023 [...] 8 - 16 mmol/L 11/04/2023 9:49 AM CONVOLUTE TUBE WINDER [facility] Blood 11/04/2023 3:45 AM CONVOLUTE TUBE WINDER 11/04/2023 8:24 AM CONVOLUTE TUBE WINDER Erik Chairez MD CHEMISTRY ORDERABLES Final Resul t [facility] CLIA# [id number] [address] [place] [address] documented in this encounter Visit Diagnoses Not on filedocumented in this encounter Additional Health Concerns Infection Onset Date Last Indicated Resolved Time 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
--- OUTSIDE RECORDS SUMMARY | 2025-05-21 13:25 | XMS_ITS | Encounter Summary ---
Author Organization [facility] Address [address] [place] [address] Care Team Providers Care Screw Down Name Role Phone Unavailable Primary Care Provider Unavailabl e Encounter Details Date Type Department Care Team (Late st Contact Info) Description 11/10/2023 Lab Requisition [facility] [address] [place] [address] [place] [address] [place] [address] Social History Tobacco Use Types Packs/Day Years Used Date Smoking Tobacco: Never Assessed Sex and Gender Information Value Date Recorded Sex Assigned at Not on file Legal Sex Male 9:18 AM REFINERY OPERATOR ALKYLATION Gender Identity Not on file Sexual Orientation Not on file documented as of this encounter Plan of Treatment Not on file documented as of this encounter Procedures Procedure Name Priority Date/Time Associated Diagnosis Comments CBC WITH DIFFERENTIAL Routine 11/10/2023 6:10 AM REFINERY OPERATOR ALKYLATION BASIC METABOLIC PANEL Routine 11/10/2023 6:10 AM REFINERY OPERATOR ALKYLATION documented in this encounter Results * (ABNORMAL) CBC WITH DIFFERENTIAL (11/10/2023 6:10 AM REFINERY OPERATOR ALKYLATION) WBC 7.9 4.5 - 10.5 K/uL 11/10/2023 6:55 AM REFINERY OPERATOR ALKYLATION [facility] RBC 3.65(L) 4.50 - 5.40 M/uL 11/10/2023 6:55 AM REFINERY OPERATOR ALKYLATION [facility] HEMOGLOBIN 10.8(L) 13.6 - 16.5 g/dL 11/10/2023 6:55 AM REFINERY OPERATOR ALKYLATION [facility] - [facility] HEMATOCRIT 33.6(L) 40.0 - 48.0 % 11/10/2023 6:55 AM REFINERY OPERATOR ALKYLATION [facility] MCV 92.0 82.0 - 99.0 fL 11/10/2023 6:55 AM REFINERY OPERATOR ALKYLATION [facility] MCH 29.7 27.8 - 34.5 pg 11/10/2023 6:55 AM REFINERY OPERATOR ALKYLATION [facility] MCHC 32.2(L) 32.5 - 35.5 g/dL 11/10/2023 6:55 AM REFINERY OPERATOR ALKYLATION [facility] RDW 17.0(H) 11.5 - 14.5 % 11/10/2023 6:55 AM REFINERY OPERATOR ALKYLATION [facility] PLATELETS 251 160 - 420 K/uL 11/10/2023 6:55 AM REFINERY OPERATOR ALKYLATION [facility] MPV 9.2 8.7 - 12.7 fL 11/10/2023 6:55 AM REFINERY OPERATOR ALKYLATION [facility] NEUTROPHILS 62 % 11/10/2023 6:55 AM REFINERY OPERATOR ALKYLATION [facility] LYMPHOCYTES 22 % 11/10/2023 6:55 AM REFINERY OPERATOR ALKYLATION [facility] MONOCYTES 5 % 11/10/2023 6:55 AM REFINERY OPERATOR ALKYLATION [facility] EOSINOPHILS 10 % 11/10/2023 6:55 AM REFINERY OPERATOR ALKYLATION [facility] BASOPHILS 1 % 11/10/2023 6:55 AM REFINERY OPERATOR ALKYLATION [facility] NEUTROPHIL ABSOLUTE 4.90 1.90 - 7.00 K/uL 11/10/2023 6:55 AM REFINERY OPERATOR ALKYLATION [facility] SERVICES [facility] LYMPHOCYTE ABSOLUTE 1.70 0.70 - 4.50 K/uL 11/10/2023 6:55 AM REFINERY OPERATOR ALKYLATION [facility] SERVICES [facility] MONOCYTE ABSOLUTE 0.40 0.10 - 1.30 K/uL 11/10/2023 6:55 AM REFINERY OPERATOR ALKYLATION [facility] SERVICES [facility] EOSINOPHIL ABSOLUTE 0.80(H) 0.00 - 0.70 K/uL 11/10/2023 6:55 AM REFINERY OPERATOR ALKYLATION [facility] BASOPHILS ABSOLUTE 0.10 0.00 - 0.20 K/uL 11/10/2023 6:55 AM [facility] Blood 11/10/2023 6:10 AM REFINERY OPERATOR ALKYLATION 11/10/2023 6:41 AM REFINERY OPERATOR ALKYLATION Erik Chairez MD HEMATOLOGY ORDERABLES Final Resu lt [facility] CLIA# [id number] [place] [address] * (ABNORMAL) BASIC METABOLIC PANEL (11/10/2023 6:10 AM REFINERY OPERATOR ALKYLATION) SODIUM 139 136 - 145 mmol/L 11/10/2023 [...] 8 - 16 mmol/L 11/10/2023 7:14 AM REFINERY OPERATOR ALKYLATION [facility] Blood 11/10/2023 6:10 AM REFINERY OPERATOR ALKYLATION 11/10/2023 6:41 AM REFINERY OPERATOR ALKYLATION Erki Chairez MD CHEMISTRY ORDERABLES Final Resul t [facility] CLIA# [id number] [address] [place] [address] documented in this encounter Visit Diagnoses Not on filedocumented in this encounter Additional Health Concerns Infection Onset Date Last Indicated Resolved Time 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
--- OUTSIDE RECORDS SUMMARY | 2025-05-21 13:25 | XMS_ITS | Encounter Summary ---
Author Organization [facility] Address [address] [place] [address] Care Team Providers Care Restaurant Shift Leader Name Role Phone Unavailable Primary Care Provider Unavailabl e Encounter Details Date Type Department Care Team (Late st Contact Info) Description 11/01/2023 Lab Requisition [facility] Services [address] [place] [address] [place] [address] [place] [address] Social History Tobacco Use Types Packs/Day Years Used Date Smoking Tobacco: Never Assessed Sex and Gender Information Value Date Recorded Sex Assigned at Not on file Legal Sex Male 9:18 AM CORRESPONDENCE ANALYST Gender Identity Not on file Sexual Orientation Not on file documented as of this encounter Plan of Treatment Not on file documented as of this encounter Procedures Procedure Name Priority Date/Time Associated Diagnosis Comments CBC WITH DIFFERENTIAL Routine 11/01/2023 4:20 AM CORRESPONDENCE ANALYST BASIC METABOLIC PANEL Routine 11/01/2023 4:20 AM CORRESPONDENCE ANALYST documented in this encounter Results * (ABNORMAL) CBC WITH DIFFERENTIAL (11/01/2023 4:20 AM CORRESPONDENCE ANALYST) WBC 8.5 4.5 - 10.5 K/uL 11/01/2023 8:48 AM CORRESPONDENCE ANALYST [facility] RBC 3.87(L) 4.50 - 5.40 M/uL 11/01/2023 8:48 AM CORRESPONDENCE ANALYST [facility] HEMOGLOBIN 11.2(L) 13.6 - 16.5 g/dL 11/01/2023 8:48 AM CORRESPONDENCE ANALYST [facility] HEMATOCRIT 34.9(L) 40.0 - 48.0 % 11/01/2023 8:48 AM CORRESPONDENCE ANALYST [facility] MCV 90.3 82.0 - 99.0 fL 11/01/2023 8:48 AM CORRESPONDENCE ANALYST [facility] - [facility] MCH 29.0 27.8 - 34.5 pg 11/01/2023 8:48 AM CORRESPONDENCE ANALYST [facility] MCHC 32.1(L) 32.5 - 35.5 g/dL 11/01/2023 8:48 AM CORRESPONDENCE ANALYST [facility] RDW 17.0(H) 11.5 - 14.5 % 11/01/2023 8:48 AM CORRESPONDENCE ANALYST [facility] SERVICES [facility] PLATELETS 246 160 - 420 K/uL 11/01/2023 8:48 AM CORRESPONDENCE ANALYST [facility] MPV 9.7 8.7 - 12.7 fL 11/01/2023 8:48 AM CORRESPONDENCE ANALYST [facility] SERVICES [facility] NEUTROPHILS 53 % 11/01/2023 8:48 AM CORRESPONDENCE ANALYST [facility] SERVICES [facility] LYMPHOCYTES 29 % 11/01/2023 8:48 AM CORRESPONDENCE ANALYST [facility] SERVICES [facility] MONOCYTES 7 % 11/01/2023 8:48 AM CORRESPONDENCE ANALYST [facility] SERVICES [facility] EOSINOPHILS 12 % 11/01/2023 8:48 AM CORRESPONDENCE ANALYST [facility] LAB[facility]AT[facility] SERVICES [facility] BASOPHILS 1 % 11/01/2023 8:48 AM CORRESPONDENCE ANALYST [facility] SERVICES [facility] NEUTROPHIL ABSOLUTE 4.50 1.90 - 7.00 K/uL 11/01/2023 8:48 AM CORRESPONDENCE ANALYST [facility] SERVICES [facility] LYMPHOCYTE ABSOLUTE 2.40 0.70 - 4.50 K/uL 11/01/2023 8:48 AM CORRESPONDENCE ANALYST [facility] SERVICES [facility] MONOCYTE ABSOLUTE 0.60 0.10 - 1.30 K/uL 11/01/2023 8:48 AM CORRESPONDENCE ANALYST [facility] SERVICES [facility] EOSINOPHIL ABSOLUTE 1.00(H) 0.00 - 0.70 K/uL 11/01/2023 8:48 AM CORRESPONDENCE ANALYST [facility] SERVICES [facility] BASOPHILS ABSOLUTE 0.00 0.00 - 0.20 K/uL 11/01/2023 8:48 AM [facility] Blood Collection / Unknown 11/01/2023 4:20 AM CORRESPONDENCE ANALYST 11/01/2023 7:57 AM CORRESPONDENCE ANALYST Erik Chairez MD HEMATOLOGY ORDERABLES Final Resu lt [facility] CLIA# [id number] [place] [address] * (ABNORMAL) BASIC METABOLIC PANEL (11/01/2023 4:20 AM CORRESPONDENCE ANALYST) SODIUM 139 136 - 145 mmol/L 11/01/2023 [...] 8 - 16 mmol/L 11/01/2023 9:12 AM CORRESPONDENCE ANALYST [facility] SERVICES [facility] Blood Collection / Unknown 11/01/2023 4:20 AM CORRESPONDENCE ANALYST 11/01/2023 7:57 AM CORRESPONDENCE ANALYST Erik Chairez MD CHEMISTRY ORDERABLES Final Resul t [facility] CLIA# [id number] [place] [address] documented in this encounter Visit Diagnoses Not on filedocumented in this encounter Additional Health Concerns Infection Onset Date Last Indicated Resolved Time 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
--- OUTSIDE RECORDS SUMMARY | 2025-05-21 13:25 | XMS_ITS | Encounter Summary ---
Author Organization [facility] Address [address] [place] [address] Care Team Providers Care Millwork Estimator Name Role Phone Unavailable Primary Care Provider Unavailabl e Encounter Details Date Type Department Care Team (Late st Contact Info) Description 11/07/2023 Lab Requisition [facility] [address] [place] [address] [place] [address] [place] [address] Social History Tobacco Use Types Packs/Day Years Used Date Smoking Tobacco: Never Assessed Sex and Gender Information Value Date Recorded Sex Assigned at Not on file Legal Sex Male 9:18 AM CLINICAL REHABILITATION AIDE Gender Identity Not on file Sexual Orientation Not on file documented as of this encounter Plan of Treatment Not on file documented as of this encounter Procedures Procedure Name Priority Date/Time Associated Diagnosis Comments THEOPHYLLINE LEVEL Routine 11/07/2023 8: 40 AM CLINICAL REHABILITATION AIDE documented in this encounter Results * (ABNORMAL) THEOPHYLLINE LEVEL (11/07/2023 8:40 AM CLINICAL REHABILITATION AIDE) THEOPHYLLINE LEVEL <0.8(L) 10.0 - 20.0 ug/mL 11/07/2023 3:56 PM CLINICAL REHABILITATION AIDE [facility] Comment:Verified by repeat a nalysis. TDM LAST DATE, TIME, AMT (TIFFANIE) Patient unable to state date. time or dose. 11/07/2023 3:56 PM CLINICAL REHABILITATION AIDE [facility] LAST DOSE AMT, THEOPHYLLINE Other 11/07/2023 3:56 PM CLINICAL REHABILITATION AIDE [facility] Comment:80 mg Blood 11/07/2023 8:40 AM CLINICAL REHABILITATION AIDE 11/07/2023 10:34 AM CLINICAL REHABILITATION AIDE Narrative [facility] - 11/07/2023 3:56 PM CLINICAL REHABILITATION AIDE Theophylline Toxic Levels: 6 months - Adult = >20.0 ug/mL 0 - 6 months = >15.0 ug/mL Erik Chairez MD CHEMISTRY ORDERABLES Final Resul t [facility] CLIA# [id number] [address] [place] [address] [facility] CLIA# [id number] [address] [place] [address] documented in this encounter Visit Diagnoses Not on filedocumented in this encounter Additional Health Concerns Infection Onset Date Last Indicated Resolved Time 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
--- OUTSIDE RECORDS SUMMARY | 2025-05-21 13:25 | XMS_ITS | Encounter Summary ---
Author Organization [facility] Address [address] [place] [address] Care Team Providers Care Prison Officer Name Role Phone Unavailable Primary Care Provider Unavailabl e Encounter Details Date Type Department Care Team (Late st Contact Info) Description 10/29/[address] [facility] Services [address] [place] [address] [place] [address] [place] [address] Social History Tobacco Use Types Packs/Day Years Used Date Smoking Tobacco: Never Assessed Sex and Gender Information Value Date Recorded Sex Assigned at Not on file Legal Sex Male 9:18 AM STAGE SETTING PAINTER APPRENTICE Gender Identity Not on file Sexual Orientation Not on file documented as of this encounter Plan of Treatment Not on file documented as of this encounter Procedures Procedure Name Priority Date/Time Associated Diagnosis Comments CBC WITH DIFFERENTIAL Routine 10/29/2023 3:20 AM STAGE SETTING PAINTER APPRENTICE BASIC METABOLIC PANEL Routine 10/29/2023 3:20 AM STAGE SETTING PAINTER APPRENTICE documented in this encounter Results * (ABNORMAL) CBC WITH DIFFERENTIAL (10/29/2023 3:20 AM STAGE SETTING PAINTER APPRENTICE) WBC 8.0 4.5 - 10.5 K/uL 10/29/2023 8:18 AM STAGE SETTING PAINTER APPRENTICE [facility] SERVICES [facility] RBC 3.85(L) 4.50 - 5.40 M/uL 10/29/2023 8:18 AM STAGE SETTING PAINTER APPRENTICE [facility] HEMOGLOBIN 11.6(L) 13.6 - 16.5 g/dL 10/29/2023 8:18 AM STAGE SETTING PAINTER APPRENTICE [facility] HEMATOCRIT 35.7(L) 40.0 - 48.0 % 10/29/2023 8:18 AM STAGE SETTING PAINTER APPRENTICE [facility] LABORATORY SERVICES [facility] MCV 92.6 82.0 - 99.0 fL 10/29/2023 8:18 AM STAGE SETTING PAINTER APPRENTICE [facility] SERVICES - [facility] MCH 30.0 27.8 - 34.5 pg 10/29/2023 8:18 AM STAGE SETTING PAINTER APPRENTICE [facility] SERVICES [facility] MCHC 32.4(L) 32.5 - 35.5 g/dL 10/29/2023 8:18 AM STAGE SETTING PAINTER APPRENTICE [facility] SERVICES [facility] RDW 17.3(H) 11.5 - 14.5 % 10/29/2023 8:18 AM STAGE SETTING PAINTER APPRENTICE [facility]OR[facility] SERVICES [facility] PLATELETS 255 160 - 420 K/uL 10/29/2023 8:18 AM STAGE SETTING PAINTER APPRENTICE [facility] SERVICES [facility] MPV 9.9 8.7 - 12.7 fL 10/29/2023 8:18 AM STAGE SETTING PAINTER APPRENTICE [facility] SERVICES [facility] NEUTROPHILS 61 % 10/29/2023 8:18 AM STAGE SETTING PAINTER APPRENTICE [facility]OR[facility] SERVICES [facility] LYMPHOCYTES 22 % 10/29/2023 8:18 AM STAGE SETTING PAINTER APPRENTICE [facility] MONOCYTES 6 % 10/29/2023 8:18 AM STAGE SETTING PAINTER APPRENTICE [facility] EOSINOPHILS 11 % 10/29/2023 8:18 AM STAGE SETTING PAINTER APPRENTICE [facility]OR[facility]ORY SERVICES [facility] BASOPHILS 1 % 10/29/2023 8:18 AM STAGE SETTING PAINTER APPRENTICE [facility] SERVICES [facility] NEUTROPHIL ABSOLUTE 4.90 1.90 - 7.00 K/uL 10/29/2023 8:18 AM STAGE SETTING PAINTER APPRENTICE [facility] SERVICES [facility] LYMPHOCYTE ABSOLUTE 1.70 0.70 - 4.50 K/uL 10/29/2023 8:18 AM STAGE SETTING PAINTER APPRENTICE [facility] MONOCYTE ABSOLUTE 0.50 0.10 - 1.30 K/uL 10/29/2023 8:18 AM STAGE SETTING PAINTER APPRENTICE [facility]ORATORY SERVICES [facility] EOSINOPHIL ABSOLUTE 0.80(H) 0.00 - 0.70 K/uL 10/29/2023 8:18 AM STAGE SETTING PAINTER APPRENTICE [facility] LABORATORY SERVICES [facility] BASOPHILS ABSOLUTE 0.00 0.00 - 0.20 K/uL 10/29/2023 8:18 AM [facility] Blood Collection / Unknown 10/29/2023 3:20 AM STAGE SETTING PAINTER APPRENTICE 10/29/2023 7:59 AM STAGE SETTING PAINTER APPRENTICE Erik Chairez MD HEMATOLOGY ORDERABLES Final Resu lt [facility] CLIA# [id number] [address] [place] [address] * (ABNORMAL) BASIC METABOLIC PANEL (10/29/2023 3:20 AM STAGE SETTING PAINTER APPRENTICE) SODIUM 141 136 - 145 mmol/L 10/29/2023 8:38 AM [facility] POTASSIUM 4.5 3.4 - 5.1 mmol/L 10/29/2023 8:38 AM [facility] CHLORIDE 101 98 - 107 mmol/L 10/29/2023 8:38 AM [facility] CO2 28 22 - 29 mmol/L 10/29/2023 8:38 AM [facility] CALCIUM 10.2 8.6 - 10.4 mg/dL 10/29/2023 8:38 AM [facility] BUN 42(H) 6 - 20 mg/dL 10/29/2023 8:38 AM [facility] CREATININE 1.05 0.67 - 1.17 mg/dL 10/29/2023 8:38 AM [facility] Comment:The GFR result is no t clinically significant on patients <18 or >70 years of age. GLUCOSE 112(H) 74 - 99 mg/dL 10/29/2023 8:38 AM [facility] GFR >60 mL/min/1.7 3 sq meter 10/29/2023 8:38 AM [facility] Comment:eGFR calculated with 2020 CKD-EPI equation. Vegetarian diet, extremely high or low muscle mass, and may affect results. Cystatin C with Glomerular Filtration Rate is a suitable alternative for these patients. ANION GAP 12 8 - 16 mmol/L 10/29/2023 8:38 AM STAGE SETTING PAINTER APPRENTICE [facility] LABORATORY SERVICES [facility] Blood Collection / Unknown 10/29/2023 3:20 AM STAGE SETTING PAINTER APPRENTICE 10/29/2023 7:59 AM STAGE SETTING PAINTER APPRENTICE Erik Chairez MD CHEMISTRY ORDERABLES Final Resul t [facility] SERVICES [facility] CLIA# [id number] [place] [address] documented in this encounter Visit Diagnoses Not on filedocumented in this encounter Additional Health Concerns Infection Onset Date Last Indicated Resolved Time 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
[2025-05-21 13:48] LABS: Hematocrit 40.1 % (42.0-52.0); Hemoglobin 12.8 g/dL (14.0-18.0); Immature Granulocyte Percent A 0.3 % (0-0.5); Lymphocytes Absolute Auto 1.99 K/mm3 (0.9-3.2); Mean Corpuscular HGB Conc 31.9 g/dl (32-36); Mean Corpuscular Hemoglobin 30.3 pg (26-34); Mean Corpuscular Volume 95.0 fl (80-100); Nucleated Red Blood Cells Absolute Auto 0.000 K/mm3 (0.0-0.012); Nucleated Red Blood Cells Perc 0.0 % (0.0-0.2); Platelet Count Result 204 k/mm3 (150-375); Red Blood Count 4.22 M/mm3 (4.6-6.20); White Blood Count 7.5 K/mm3 (4.5-10.0)
[2025-05-21 13:59] LABS: Anion Gap 7 mmol/L (4-12); Blood Urea Nitrogen 21 mg/dL (9-20); Calcium 9.4 mg/dL (8.4-10.2); Carbon Dioxide 28 mmol/L (22-30); Chloride 101 mmol/L (98-107); Estimated Glomerular Filt Rate 45; Glucose 104 mg/dL (65-110); Potassium 4.1 mmol/L (3.4-5.0); Sodium 136 mmol/L (137-145)
== END 2025-05-21 13:22 | disposition home or self-care (01) ==
PROVIDERS: PCP Family Medicine; Visit Provider Physician Assistant Medical
DX: N28.9 Disorder of kidney and ureter, unspecified (principal); D64.9 Anemia, unspecified
CPT/HCPCS: 36415; 80048; 85025

== ENCOUNTER 2025-06-01 11:44 | Outpatient (CLI) | payer MEDICARE, SELFPAY ==
--- OUTSIDE RECORDS SUMMARY | 2025-06-01 13:29 | XMS_ITS | Encounter Summary ---
Author Organization [facility] Address [address] [place] [address] Care Team Providers Care Cutter Wet Machine Name Role Phone Unavailable Primary Care Provider Unavailabl e Encounter Details Date Type Department Care Team (Late st Contact Info) Description 10/13/2023 Lab Requisition [facility] [address] [place] [address] [place] [address] [place] [address] Social History Tobacco Use Types Packs/Day Years Used Date Smoking Tobacco: Never Assessed Sex and Gender Information Value Date Recorded Sex Assigned at Not on file Legal Sex Male 9:18 AM RN APPEALS Gender Identity Not on file Sexual Orientation Not on file documented as of this encounter Plan of Treatment Not on file documented as of this encounter Procedures Procedure Name Priority Date/Time Associated Diagnosis Comments MAGNESIUM LEVEL Routine 10/13/2023 4:00 AM RN APPEALS RENAL FUNCTION PANEL Routine 10/13/2023 4:00 AM RN APPEALS documented in this encounter Results * MAGNESIUM LEVEL (10/13/2023 4:00 AM RN APPEALS) MAGNESIUM 2.3 1.6 - 2.6 mg/dL 10/13/2023 5:59 AM RN APPEALS [facility] 2nd Watch [facility] Blood Collection / Unknown 10/13/2023 4:00 AM RN APPEALS 10/13/2023 5:20 AM RN APPEALS us Erik Chairez MD CHEMISTRY ORDERABLES [facility]ul [id number] [place] [address] * (ABNORMAL) RENAL FUNCTION PANEL (10/13/2023 4:00 AM RN APPEALS) SODIUM 138 136 - 145 mmol/L 10/13/2023 5:58 AM [facility] POTASSIUM 4.5 3.4 - 5.1 mmol/L 10/13/2023 5:58 AM [facility] CHLORIDE 100 98 - 107 mmol/L 10/13/2023 5:58 AM [facility] CO2 25 22 - 29 mmol/L 10/13/2023 5:58 AM [facility] CALCIUM 9.6 8.6 - 10.4 mg/dL 10/13/2023 5:58 AM [facility] BUN 39(H) 6 - 20 mg/dL 10/13/2023 5:58 AM [facility] CREATININE 1.09 0.67 - 1.17 mg/dL 10/13/2023 5:58 AM [facility] Comment:The GFR result is no t clinically significant on patients <18 or >70 years of age. GLUCOSE 100(H) 74 - 99 mg/dL 10/13/2023 5:58 AM [facility] ALBUMIN 3.5 3.5 - 5.2 g/dL 10/13/2023 5:58 AM [facility] PHOSPHORUS 4.8(H) 2.5 - 4.5 mg/dL 10/13/2023 5:58 AM [facility] GFR >60 mL/min/1.7 3 sq meter 10/13/2023 5:58 AM [facility] Comment:eGFR calculated with 2020 CKD-EPI equation. Vegetarian diet, extremely high or low muscle mass, and may affect results. Cystatin C with Glomerular Filtration Rate is a suitable alternative for these patients. 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
--- OUTSIDE RECORDS SUMMARY | 2025-06-01 13:29 | XMS_ITS | Encounter Summary ---
Author Organization [facility] Address [address] [place] [address] Care Team Providers Care Injection Molder Name Role Phone Unavailable Primary Care Provider Unavailabl e Encounter Details Date Type Department Care Team (Late st Contact Info) Description 11/01/2023 Lab Requisition [facility] [address] [place] [address] [place] [id number] [place] [address] Social History Tobacco Use Types Packs/Day Years Used Date Smoking Tobacco: Never Assessed Sex and Gender Information Value Date Recorded Sex Assigned at Not on file Legal Sex Male 9:18 AM HOUSING MANAGER Gender Identity Not on file Sexual Orientation Not on file documented as of this encounter Plan of Treatment Not on file documented as of this encounter Procedures Procedure Name Priority Date/Time Associated Diagnosis Comments CBC WITH DIFFERENTIAL Routine 11/01/2023 4:20 AM HOUSING MANAGER BASIC METABOLIC PANEL Routine 11/01/2023 4:20 AM HOUSING MANAGER documented in this encounter Results * (ABNORMAL) CBC WITH DIFFERENTIAL (11/01/2023 4:20 AM HOUSING MANAGER) WBC 8.5 4.5 - 10.5 K/uL 11/01/2023 8:48 AM HOUSING MANAGER [facility] LABORATORY SERVICES - [facility] RBC 3.87(L) 4.50 - 5.40 M/uL 11/01/2023 8:48 AM HOUSING MANAGER [facility] LABORATORY [facility] - [facility] HEMOGLOBIN 11.2(L) 13.6 - 16.5 g/dL 11/01/2023 8:48 AM HOUSING MANAGER [facility] LABORATORY [facility] - [facility] HEMATOCRIT 34.9(L) 40.0 - 48.0 % 11/01/2023 8:48 AM HOUSING MANAGER [facility] LABORATORY SERVICES [facility] MCV 90.3 82.0 - 99.0 fL 11/01/2023 8:48 AM HOUSING MANAGER [facility] LABORATORY SERVICES - [facility] MCH 29.0 27.8 - 34.5 pg 11/01/2023 8:48 AM HOUSING MANAGER [facility] LABORATORY SERVICES [facility] MCHC 32.1(L) 32.5 - 35.5 g/dL 11/01/2023 8:48 AM HOUSING MANAGER [facility] LABORATORY SERVICES [facility] RDW 17.0(H) 11.5 - 14.5 % 11/01/2023 8:48 AM HOUSING MANAGER [facility] LABORATORY SERVICES [facility] PLATELETS 246 160 - 420 K/uL 11/01/2023 8:48 AM HOUSING MANAGER [facility] MPV 9.7 8.7 - 12.7 fL 11/01/2023 8:48 AM HOUSING MANAGER [facility] NEUTROPHILS 53 % 11/01/2023 8:48 AM HOUSING MANAGER [facility] LYMPHOCYTES 29 % 11/01/2023 8:48 AM HOUSING MANAGER [facility] MONOCYTES 7 % 11/01/2023 8:48 AM HOUSING MANAGER [facility] EOSINOPHILS 12 % 11/01/2023 8:48 AM HOUSING MANAGER [facility] BASOPHILS 1 % 11/01/2023 8:48 AM HOUSING MANAGER [facility] LABORATORY SERVICES [facility] NEUTROPHIL ABSOLUTE 4.50 1.90 - 7.00 K/uL 11/01/2023 8:48 AM HOUSING MANAGER [facility] LABORATORY SERVICES [facility] LYMPHOCYTE ABSOLUTE 2.40 0.70 - 4.50 K/uL 11/01/2023 8:48 AM HOUSING MANAGER [facility] MONOCYTE ABSOLUTE 0.60 0.10 - 1.30 K/uL 11/01/2023 8:48 AM HOUSING MANAGER [facility] LABORATORY SERVICES [facility] EOSINOPHIL ABSOLUTE 1.00(H) 0.00 - 0.70 K/uL 11/01/2023 8:48 AM HOUSING MANAGER [facility] LABORATORY SERVICES [facility] BASOPHILS ABSOLUTE 0.00 0.00 - 0.20 K/uL 11/01/2023 8:48 AM [facility] Blood Collection / Unknown 11/01/2023 4:20 AM HOUSING MANAGER 11/01/2023 7:57 AM HOUSING MANAGER Erik Chairez MD HEMATOLOGY ORDERABLES Final Resu lt [facility] CLIA# [id number] [address] [place] [address] * (ABNORMAL) BASIC METABOLIC PANEL (11/01/2023 4:20 AM HOUSING MANAGER) SODIUM 139 136 - 145 mmol/L 11/01/2023 9:12 AM [facility] POTASSIUM 3.7 3.4 - 5.1 mmol/L 11/01/2023 9:12 AM [facility] CHLORIDE 100 98 - 107 mmol/L 11/01/2023 9:12 AM [facility] CO2 27 22 - 29 mmol/L 11/01/2023 9:12 AM [facility] CALCIUM 9.8 8.6 - 10.4 mg/dL 11/01/2023 9:12 AM [facility] BUN 41(H) 6 - 20 mg/dL 11/01/2023 9:12 AM [facility] CREATININE 0.93 0.67 - 1.17 mg/dL 11/01/2023 9:12 AM [facility] Comment:The GFR result is no t clinically significant on patients <18 or >70 years of age. GLUCOSE 109(H) 74 - 99 mg/dL 11/01/2023 9:12 AM [facility] GFR >60 mL/min/1.7 3 sq meter 11/01/2023 9:12 AM [facility] Comment:eGFR calculated with 2020 CKD-EPI equation. Vegetarian diet, extremely high or low muscle mass, and may affect results. Cystatin C with Glomerular Filtration Rate is a suitable alternative for these patients. ANION GAP 12 8 - 16 mmol/L 11/01/2023 9:12 AM HOUSING MANAGER [facility] LABORATORY SERVICES [facility] Blood Collection / Unknown 11/01/2023 4:20 AM HOUSING MANAGER 11/01/2023 7:57 AM HOUSING MANAGER Erik Chairez MD CHEMISTRY ORDERABLES Final Resul t [facility] LABORATORY SERVICES [facility] CLIA# [id number] [place] [address] documented in this encounter Visit Diagnoses Not on filedocumented in this encounter Additional Health Concerns Infection Onset Date Last Indicated Resolved Time 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
--- OUTSIDE RECORDS SUMMARY | 2025-06-01 13:29 | XMS_ITS | Encounter Summary ---
Author Organization [facility] Address [address] [place] [address] Care Team Providers Care Optical Design Engineer Name Role Phone Unavailable Primary Care Provider Unavailabl e Encounter Details Date Type Department Care Team (Late st Contact Info) Description 10/29/2023 Lab Requisition [facility] Services [address] [place] [address] [place] [address] [place] [address] Social History Tobacco Use Types Packs/Day Years Used Date Smoking Tobacco: Never Assessed Sex and Gender Information Value Date Recorded Sex Assigned at Not on file Legal Sex Male 9:18 AM LAND RESOURCE SPECIALIST Gender Identity Not on file Sexual Orientation Not on file documented as of this encounter Plan of Treatment Not on file documented as of this encounter Procedures Procedure Name Priority Date/Time Associated Diagnosis Comments CBC WITH DIFFERENTIAL Routine 10/29/2023 3:20 AM LAND RESOURCE SPECIALIST BASIC METABOLIC PANEL Routine 10/29/2023 3:20 AM LAND RESOURCE SPECIALIST documented in this encounter Results * (ABNORMAL) CBC WITH DIFFERENTIAL (10/29/2023 3:20 AM LAND RESOURCE SPECIALIST) WBC 8.0 4.5 - 10.5 K/uL 10/29/2023 8:18 AM LAND RESOURCE SPECIALIST [facility] LABORATORY SERVICES - [facility] RBC 3.85(L) 4.50 - 5.40 M/uL 10/29/2023 8:18 AM LAND RESOURCE SPECIALIST [facility] LABORATORY [facility] - [facility] HEMOGLOBIN 11.6(L) 13.6 - 16.5 g/dL 10/29/2023 8:18 AM LAND RESOURCE SPECIALIST [facility] LABORATORY [facility] - [facility] HEMATOCRIT 35.7(L) 40.0 - 48.0 % 10/29/2023 8:18 AM LAND RESOURCE SPECIALIST [facility] LABORATORY SERVICES [facility] MCV 92.6 82.0 - 99.0 fL 10/29/2023 8:18 AM LAND RESOURCE SPECIALIST [facility] LABORATORY SERVICES - [facility] MCH 30.0 27.8 - 34.5 pg 10/29/2023 8:18 AM LAND RESOURCE SPECIALIST [facility] LABORATORY SERVICES [facility] MCHC 32.4(L) 32.5 - 35.5 g/dL 10/29/2023 8:18 AM LAND RESOURCE SPECIALIST [facility] LABORATORY SERVICES [facility] RDW 17.3(H) 11.5 - 14.5 % 10/29/2023 8:18 AM LAND RESOURCE SPECIALIST [facility] LABORATORY SERVICES [facility] PLATELETS 255 160 - 420 K/uL 10/29/2023 8:18 AM LAND RESOURCE SPECIALIST [facility] LABORATORY SERVICES [facility] MPV 9.9 8.7 - 12.7 fL 10/29/2023 8:18 AM LAND RESOURCE SPECIALIST [facility] LABORATORY SERVICES [facility] NEUTROPHILS 61 % 10/29/2023 8:18 AM LAND RESOURCE SPECIALIST [facility] LABORATORY SERVICES [facility] LYMPHOCYTES 22 % 10/29/2023 8:18 AM LAND RESOURCE SPECIALIST [facility] MONOCYTES 6 % 10/29/2023 8:18 AM LAND RESOURCE SPECIALIST [facility] SERVICES [facility] EOSINOPHILS 11 % 10/29/2023 8:18 AM LAND RESOURCE SPECIALIST [facility] LABORATORY SERVICES [facility] BASOPHILS 1 % 10/29/2023 8:18 AM LAND RESOURCE SPECIALIST [facility] LABORATORY SERVICES [facility] NEUTROPHIL ABSOLUTE 4.90 1.90 - 7.00 K/uL 10/29/2023 8:18 AM LAND RESOURCE SPECIALIST [facility] LABORATORY SERVICES [facility] LYMPHOCYTE ABSOLUTE 1.70 0.70 - 4.50 K/uL 10/29/2023 8:18 AM LAND RESOURCE SPECIALIST [facility] LABORATORY SERVICES [facility] MONOCYTE ABSOLUTE 0.50 0.10 - 1.30 K/uL 10/29/2023 8:18 AM LAND RESOURCE SPECIALIST [facility] LABORATORY SERVICES [facility] EOSINOPHIL ABSOLUTE 0.80(H) 0.00 - 0.70 K/uL 10/29/2023 8:18 AM LAND RESOURCE SPECIALIST [facility] LABORATORY SERVICES [facility] BASOPHILS ABSOLUTE 0.00 0.00 - 0.20 K/uL 10/29/2023 8:18 AM [facility] Blood Collection / Unknown 10/29/2023 3:20 AM LAND RESOURCE SPECIALIST 10/29/2023 7:59 AM LAND RESOURCE SPECIALIST Erik Chairez MD HEMATOLOGY ORDERABLES Final Resu lt [facility] CLIA# [id number] [address] [place] [address] * (ABNORMAL) BASIC METABOLIC PANEL (10/29/2023 3:20 AM LAND RESOURCE SPECIALIST) SODIUM 141 136 - 145 mmol/L 10/29/2023 8:38 AM [facility] POTASSIUM 4.5 3.4 - 5.1 mmol/L 10/29/2023 8:38 AM [facility] CHLORIDE 101 98 - 107 mmol/L 10/29/2023 8:38 AM [facility] CO2 28 22 - 29 mmol/L 10/29/2023 8:38 AM [facility] CALCIUM 10.2 8.6 - 10.4 mg/dL 10/29/2023 8:38 AM [facility] BUN 42(H) 6 - 20 mg/dL 10/29/2023 8:38 AM [facility] CREATININE 1.05 0.67 - 1.17 mg/dL 10/29/2023 8:38 AM [facility] Comment:The GFR result is no t clinically significant on patients <18 or >70 years of age. GLUCOSE 112(H) 74 - 99 mg/dL 10/29/2023 8:38 AM [facility] GFR >60 mL/min/1.7 3 sq meter 10/29/2023 8:38 AM [facility] Comment:eGFR calculated with 2020 CKD-EPI equation. Vegetarian diet, extremely high or low muscle mass, and may affect results. Cystatin C with Glomerular Filtration Rate is a suitable alternative for these patients. ANION GAP 12 8 - 16 mmol/L 10/29/2023 8:38 AM LAND RESOURCE SPECIALIST [facility] LABORATORY SERVICES [facility] Blood Collection / Unknown 10/29/2023 3:20 AM LAND RESOURCE SPECIALIST 10/29/2023 7:59 AM LAND RESOURCE SPECIALIST Erik Chairez MD CHEMISTRY ORDERABLES Final Resul t [facility] LABORATORY SERVICES 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
--- OUTSIDE RECORDS SUMMARY | 2025-06-01 13:29 | XMS_ITS | Encounter Summary ---
Author Organization [facility] Address [address] [place] [address] Care Team Providers Care Tufting Creeler Name Role Phone Demond Stark MD Primary Care Provider [phone] Encounter Details Date Type Department Care Team (Late st Contact Info) Description 10/16/2016 Orders Only [facility] ProviderTaylor MD [address] [place], [place] [id number] Social History Tobacco Use Types Packs/Day Years Used Date Smoking Tobacco: Former Cigarettes Q uit: 09/23/1969 Alcohol Use Standard Drinks/Week Comments Yes 0 (1 standard drink = 0.6 oz pur e alcohol) Sex and Gender Information Value Date Recorded Sex Assigned at Not on file Legal Sex Male 8:49 AM REFRIGERATION BRAZER/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
--- OUTSIDE RECORDS SUMMARY | 2025-06-01 13:29 | XMS_ITS | Encounter Summary ---
Author Organization [facility] Address [address] [place] [address] Care Team Providers Care Tissue Coordinator Name Role Phone Demond Stark MD Primary Care Provider [phone] Encounter Details Date Type Department Care Team (Late Contact Info) Description 06/28/2023 Lab Requisition [facility] [address] [place] [address] Jaxon Anaya MD [address] [place] [address] Social History Tobacco Use Types Packs/Day Years Used Date Smoking Tobacco: Former Cigarettes Q uit: 09/23/1969 Smokeless Tobacco: Never Alcohol Use Standard Drinks/Week Comments Yes 0 (1 standard drink = 0.6 oz pur e alcohol) Sex and Gender Information Value Date Recorded Sex Assigned at Not on file Legal Sex Male 5:43 PM 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 Gender Identity Not on file Sexual Orientation Not on file documented as of this encounter Plan of Treatment Upcoming Encounters Date Type Department Care Team (Late st Contact Info) Description 02/04/2026 9:00 AM CDT Office Visit [facility] [address] [place] [address] Callie Mendoza DO [address] [facility] [address] [place] [id number] documented as of this encounter Procedures Procedure Name Priority Date/Time Associated Diagnosis Comments DERMATOPATHOLOGY Routine 06/26/2023 12:0 0 AM CDT documented in this encounter Results * DERMATOPATHOLOGY (06/26/2023 12:00 AM CDT) Case Report Dermatopathology Report Case: [id number] Authorizing Provider: Jaxon Anaya MD Collected: 06/26/2023 12:00 AM Ordering Location: [facility] Received: 06/28/2023 09:48 AM Pathologist: [...] back.The specimen consists of an ellipse measuring [id number] mm and is oriented with the suture/notch [...] purposes. Billing Codes Specimen Charges Stain Charges 18120 1 3 4:58 PM CDT DERMATOPATHOLOGY LABORATORY Embedded Images 3 4:58 PM CDT DERMATOPATHOLOGY LABORATORY Pathology/Cytolog y TISSUE SPECIMEN FROM SKIN / Unknown 06/26/2023 06/28/2023 9:48 AM CDT Jaxon Anaya MD LAB - PATHOLOGY/CYTOLOGY ORD ERABLES Final Result DERMATOPATHOLOGY LABORATORY [facility] - Department of Dermatology [facility] Medicine [address] [place] [address], [address] [phone] documented in this encounter Visit Diagnoses Not on filedocumented in this encounter Care Teams Tissue Coordinator Relationship Specialty Start Date End Date Demond Stark MD [address] [place] [address] PCP - General 10/03/15 documented as of this encounter
--- OUTSIDE RECORDS SUMMARY | 2025-06-01 13:29 | XMS_ITS | Encounter Summary ---
Author Organization [facility] Address [address] [place] [address] Care Team Providers Care Automatic Clipper Name Role Phone Unavailable Primary Care Provider Unavailabl e Encounter Details Date Type Department Care Team (Late st Contact Info) Description 10/14/2023 Lab Requisition [facility] Laboratory Services [id number] [place] [address] [place] [address] [address] Social History Tobacco Use Types Packs/Day Years Used Date Smoking Tobacco: Never Assessed Sex and Gender Information Value Date Recorded Sex Assigned at Not on file Legal Sex Male 9:18 AM COATER BRAKE LININGS Gender Identity Not on file Sexual Orientation Not on file documented as of this encounter Plan of Treatment Not on file documented as of this encounter Procedures Procedure Name Priority Date/Time Associated Diagnosis Comments CBC WITH DIFFERENTIAL Routine 10/14/2023 2:35 AM COATER BRAKE LININGS TRIGLYCERIDE Routine 10/14/2023 2:35 AM COATER BRAKE LININGS PHOSPHORUS Routine 10/14/2023 2:35 AM COATER BRAKE LININGS MAGNESIUM LEVEL Routine 10/14/2023 2:35 AM COATER BRAKE LININGS COMPREHENSIVE METABOLIC PANEL Routine 10/14/2023 2:35 AM COATER BRAKE LININGS documented in this encounter Results * (ABNORMAL) TRIGLYCERIDE (10/14/2023 2:35 AM COATER BRAKE LININGS) TRIGLYCERIDE 161(H) <150 mg/dL 10/14/2023 8:26 AM COATER BRAKE LININGS [facility] LABORATORY SERVICES [facility] Blood Collection / Unknown 10/14/2023 2:35 AM COATER BRAKE LININGS 10/14/2023 7:22 AM CO[employer] BRAKE LININGS Narrative [facility] - 10/14/2023 8:26 AM COATER BRAKE LININGS TRIGLYCERIDES mg/dL Normal < 150 Borderline High 150 - 199 High 200 - 499 Very High >= 500 Based on AHA/NCEP Guidelines. us Erik Chairez MD CHEMISTRY ORDERABLES Final Resul t Performing Organization Address City[facility]/ZIP Co de Phone Number [facility] CLIA# [id number] [place] [address] * PHOSPHORUS (10/14/2023 2:35 AM COATER BRAKE LININGS) PHOSPHORUS 3.4 2.5 - 4.5 mg/dL 10/14/2023 8:26 AM COATER BRAKE LININGS [facility] Blood Collection / Unknown 10/14/2023 2:35 AM CO[employer] BRAKE LININGS 10/14/2023 7:22 AM CO[employer] BRAKE LININGS us Erik Chairez MD CHEMISTRY ORDERABLES Final Resul t Performing Organization Address [facility] Co de Phone Number [facility] [id number] [place] [address] * MAGNESIUM LEVEL (10/14/2023 2:35 AM COATER BRAKE LININGS) MAGNESIUM 2.5 1.6 - 2.6 mg/dL 10/14/2023 8:26 AM COATER BRAKE LININGS [facility] [employer] [place] [facility] Blood Collection / Unknown 10/14/2023 2:35 AM COATER BRAKE LININGS 10/14/2023 7:22 AM COATER BRAKE LININGS us Erik Chairez MD CHEMISTRY ORDERABLES Final Resul t Performing Organization Address [facility]/ZIP Co de Phone Number [facility] [id number] [place] [address] * (ABNORMAL) CBC WITH DIFFERENTIAL (10/14/2023 2:35 AM COATER BRAKE LININGS) [facility] WBC 9.2 4.5 - 10.5 K/uL 10/14/2023 8:02 AM [facility] LABORATORY [facility] RBC 3.58(L) 4.50 - 5.40 M/uL 10/14/2023 8:02 AM [facility] HEMOGLOBIN 11.0(L) 13.6 - 16.5 g/dL 10/14/2023 8:02 AM [facility] LABORATORY [facility] HEMATOCRIT 33.5(L) 40.0 - 48.0 % 10/14/2023 8:02 AM [facility] LABORATORY [facility] MCV 93.6 82.0 - 99.0 fL 10/14/2023 8:02 AM [facility] LABORATORY [facility] MCH 30.6 27.8 - 34.5 pg 10/14/2023 8:02 AM [facility] [employer] [facility] MCHC 32.7 32.5 - 35.5 g/dL 10/14/2023 8:02 AM [facility] [employer] [place] [facility] RDW 17.7(H) 11.5 - 14.5 % 10/14/2023 8:02 AM [facility] LABORATORY [facility] PLATELETS 214 160 - 420 K/uL 10/14/2023 8:02 AM [facility] [employer] [place] [facility] MPV 9.2 8.7 - 12.7 fL 10/14/2023 8:02 AM [facility] [employer] [facility] NEUTROPHILS 58 % 10/14/2023 8:02 AM [facility] LABORATORY [facility] LYMPHOCYTES 24 % 10/14/2023 8:02 AM [facility] LABORATORY [facility] MONOCYTES 8 % 10/14/2023 8:02 AM CO[employer]RAKE LININGS [facility] LABORATORY [facility] EOSINOPHILS 9 % 10/14/2023 8:02 AM [facility] LABORATORY [facility] BASOPHILS 0 % 10/14/2023 8:02 AM [facility] LABORATORY [facility] NEUTROPHIL ABSOLUTE 5.40 1.90 - 7.00 K/uL 10/14/2023 8:02 AM [facility] [employer] [place] [facility] LYMPHOCYTE ABSOLUTE 2.20 0.70 - 4.50 K/uL 10/14/2023 8:02 AM [facility] LABORATORY [facility] MONOCYTE ABSOLUTE 0.70 0.10 - 1.30 K/uL 10/14/2023 8:02 AM [facility] EOSINOPHIL ABSOLUTE 0.90(H) 0.00 - 0.70 K/uL 10/14/2023 8:02 AM [facility] LABORATORY [facility] BASOPHILS ABSOLUTE 0.00 0.00 - 0.20 K/uL 10/14/2023 8:02 AM [facility] Blood Collection / Unknown 10/14/2023 2:35 AM [employer]INGS 10/14/2023 7:22 AM [employer] Erik Chairez MD HEMATOLOGY ORDERABLES Final Resu lt [facility] CLIA# [id number] [place] [address] * (ABNORMAL) COMPREHENSIVE METABOLIC PANEL (10/14/2023 2:35 AM COATER BRAKE LININGS) SODIUM 135(L) 136 - 145 mmol/L 10/14/2023 [...] - 1.17 mg/dL 10/14/2023 8:26 AM [facility] [employer] [place] [facility] Comment:The GFR result is no t [...] Blood Collection / Unknown 10/14/2023 2:35 AM [employer] 10/14/2023 7:22 AM [employer] us Erik Chairez MD CHEMISTRY ORDERABLES Final Resul t [facility] CLIA# [id number] [place] [address] documented in this encounter Visit Diagnoses Not on filedocumented in this encounter Additional Health Concerns Infection Onset Date Last Indicated Resolved Time 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
--- OUTSIDE RECORDS SUMMARY | 2025-06-01 13:29 | XMS_ITS | Encounter Summary ---
Author Organization [facility] Address 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 Gender Identity Not on file Sexual Orientation Not on file documented as of this encounter Plan of Treatment Not on file documented as of this encounter Procedures Procedure Name Priority Date/Time Associated Diagnosis Comments CBC WITH DIFFERENTIAL Routine 10/17/2023 2:15 AM PAINTING TRADES WORKER MAGNESIUM LEVEL Routine 10/17/2023 2:15 AM PAINTING TRADES WORKER RENAL FUNCTION PANEL Routine 10/17/2023 2:15 AM PAINTING TRADES WORKER documented in this encounter Results * MAGNESIUM LEVEL (10/17/2023 2:15 AM PAINTING TRADES WORKER) MAGNESIUM 2.3 1.6 - 2.6 mg/dL 10/17/2023 9:56 AM PAINTING TRADES WORKER [facility] LABORATORY SERVICES [facility] Blood Collection / Unknown 10/17/2023 2:15 AM PAINTING TRADES WORKER 10/17/2023 9:00 AM PAINTING TRADES WORKER Erik Chairez MD CHEMISTRY ORDERABLES Final Resul t [facility] LABORATORY [facility] CLIA# [id number] [address] [place] [address] * (ABNORMAL) CBC WITH DIFFERENTIAL (10/17/2023 2:15 AM PAINTING TRADES WORKER) WBC 6.7 4.5 - 10.5 K/uL 10/17/2023 9:34 AM PAINTING TRADES WORKER [facility] LABORATORY SERVICES [facility] RBC 3.73(L) 4.50 - 5.40 M/uL 10/17/2023 9:34 AM PAINTING TRADES WORKER [facility] LABORATORY SERVICES [facility] HEMOGLOBIN 11.1(L) 13.6 - 16.5 g/dL 10/17/2023 9:34 AM PAINTING TRADES WORKER [facility] LABORATORY SERVICES [facility] HEMATOCRIT 35.0(L) 40.0 - 48.0 % 10/17/2023 9:34 AM PAINTING TRADES WORKER [facility] LABORATORY [facility] MCV 93.8 82.0 - 99.0 fL 10/17/2023 9:34 AM PAINTING TRADES WORKER [facility] LABORATORY SERVICES [facility] MCH 29.8 27.8 - 34.5 pg 10/17/2023 9:34 AM PAINTING TRADES WORKER [facility] LABORATORY SERVICES [facility] MCHC 31.8(L) 32.5 - 35.5 g/dL 10/17/2023 9:34 AM PAINTING TRADES WORKER [facility] LABORATORY SERVICES [facility] RDW 17.4(H) 11.5 - 14.5 % 10/17/2023 9:34 AM PAINTING TRADES WORKER [facility] LABORATORY SERVICES [facility] PLATELETS 214 160 - 420 K/uL 10/17/2023 9:34 AM PAINTING TRADES WORKER [facility] LABORATORY SERVICES [facility] MPV 9.5 8.7 - 12.7 fL 10/17/2023 9:34 AM PAINTING TRADES WORKER [facility] LABORATORY SERVICES [facility] NEUTROPHILS 50 % 10/17/2023 9:34 AM PAINTING TRADES WORKER [facility] LABORATORY SERVICES [facility] LYMPHOCYTES 28 % 10/17/2023 9:34 AM PAINTING TRADES WORKER [facility] LABORATORY SERVICES [facility] MONOCYTES 8 % 10/17/2023 9:34 AM PAINTING TRADES WORKER [facility] LABORATORY SERVICES [facility] EOSINOPHILS 13 % 10/17/2023 9:34 AM PAINTING TRADES WORKER [facility] LABORATORY [facility] BASOPHILS 0 % 10/17/2023 9:34 AM PAINTING TRADES WORKER [facility] LABORATORY [facility] NEUTROPHIL ABSOLUTE 3.40 1.90 - 7.00 K/uL 10/17/2023 9:34 AM PAINTING TRADES WORKER [facility] LABORATORY [facility] LYMPHOCYTE ABSOLUTE 1.90 0.70 - 4.50 K/uL 10/17/2023 9:34 AM PAINTING TRADES WORKER [facility] LABORATORY [facility] MONOCYTE ABSOLUTE 0.50 0.10 - 1.30 K/uL 10/17/2023 9:34 AM PAINTING TRADES WORKER [facility] LABORATORY SERVICES [facility] EOSINOPHIL ABSOLUTE 0.90(H) 0.00 - 0.70 K/uL 10/17/2023 9:34 AM PAINTING TRADES WORKER [facility] LABORATORY [facility] BASOPHILS ABSOLUTE 0.00 0.00 - 0.20 K/uL 10/17/2023 9:34 AM PAINTING TRADES WORKER [facility] LABORATORY [facility] Blood Collection / Unknown 10/17/2023 2:15 AM PAINTING TRADES WORKER 10/17/2023 9:00 AM PAINTING TRADES WORKER us Erik Chairez MD HEMATOLOGY ORDERABLES Final Resu lt [facility] CLIA# [id number] [place] [address] * (ABNORMAL) RENAL FUNCTION PANEL (10/17/2023 2:15 AM PAINTING TRADES WORKER) SODIUM 137 136 - 145 mmol/L 10/17/2023 9:56 AM [facility] [employer] [facility] POTASSIUM 4.0 3.4 - 5.1 mmol/L 10/17/2023 9:56 AM [facility] LABORATORY [facility] CHLORIDE 99 98 - 107 mmol/L 10/17/2023 9:56 AM [facility] [employer] [facility] CO2 23 22 - 29 mmol/L 10/17/2023 9:56 AM [facility] [employer] [facility] CALCIUM 9.2 8.6 - 10.4 mg/dL 10/17/2023 9:56 AM [facility] [employer] [facility] BUN 42(H) 6 - 20 mg/dL 10/17/2023 [...] Blood Collection / Unknown 10/17/2023 2:15 AM PAINTING TRADES WORKER 10/17/2023 9:00 AM PAINTING TRADES WORKER Erik Chairez MD CHEMISTRY ORDERABLES Final Resul t [facility] CLIA# [id number] [place] [address] documented in this encounter Visit Diagnoses Not on filedocumented in this encounter Additional Health Concerns Infection Onset Date Last Indicated Resolved Time 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
--- OUTSIDE RECORDS SUMMARY | 2025-06-01 13:29 | XMS_ITS | Encounter Summary ---
Author Organization [facility] Address [address] [place] [address] Care Team Providers Care Business Development Officer Name Role Phone Unavailable Primary Care Provider Unavailabl e Encounter Details Date Type Department Care Team (Late st Contact Info) Description 11/10/2023 Lab Requisition [facility] Laboratory Services [address] [place] [address] [place] [address] [place] [address] Social History Tobacco Use Types Packs/Day Years Used Date Smoking Tobacco: Never Assessed Sex and Gender Information Value Date Recorded Sex Assigned at Not on file Legal Sex Male 9:18 AM SUPPLY CHAIN CONSULTANT Gender Identity Not on file Sexual Orientation Not on file documented as of this encounter Plan of Treatment Not on file documented as of this encounter Procedures Procedure Name Priority Date/Time Associated Diagnosis Comments CBC WITH DIFFERENTIAL Routine 11/10/2023 6:10 AM SUPPLY CHAIN CONSULTANT BASIC METABOLIC PANEL Routine 11/10/2023 6:10 AM SUPPLY CHAIN CONSULTANT documented in this encounter Results * (ABNORMAL) CBC WITH DIFFERENTIAL (11/10/2023 6:10 AM SUPPLY CHAIN CONSULTANT) WBC 7.9 4.5 - 10.5 K/uL 11/10/2023 6:55 AM SUPPLY CHAIN CONSULTANT [facility] LABORATORY SERVICES - [facility] RBC 3.65(L) 4.50 - 5.40 M/uL 11/10/2023 6:55 AM SUPPLY CHAIN CONSULTANT [facility] LABORATORY [facility] HEMOGLOBIN 10.8(L) 13.6 - 16.5 g/dL 11/10/2023 6:55 AM SUPPLY CHAIN CONSULTANT [facility] LABORATORY SERVICES - [facility] HEMATOCRIT 33.6(L) 40.0 - 48.0 % 11/10/2023 6:55 AM SUPPLY CHAIN CONSULTANT [facility] LABORATORY SERVICES [facility] MCV 92.0 82.0 - 99.0 fL 11/10/2023 6:55 AM SUPPLY CHAIN CONSULTANT [facility] LABORATORY SERVICES [facility] MCH 29.7 27.8 - 34.5 pg 11/10/2023 6:55 AM SUPPLY CHAIN CONSULTANT [facility] LABORATORY SERVICES [facility] MCHC 32.2(L) 32.5 - 35.5 g/dL 11/10/2023 6:55 AM SUPPLY CHAIN CONSULTANT [facility] LABORATORY SERVICES [facility] RDW 17.0(H) 11.5 - 14.5 % 11/10/2023 6:55 AM SUPPLY CHAIN CONSULTANT [facility] LABORATORY SERVICES [facility] PLATELETS 251 160 - 420 K/uL 11/10/2023 6:55 AM SUPPLY CHAIN CONSULTANT [facility] MPV 9.2 8.7 - 12.7 fL 11/10/2023 6:55 AM SUPPLY CHAIN CONSULTANT [facility] LABORATORY SERVICES [facility] NEUTROPHILS 62 % 11/10/2023 6:55 AM SUPPLY CHAIN CONSULTANT [facility] LABORATORY SERVICES [facility] LYMPHOCYTES 22 % 11/10/2023 6:55 AM SUPPLY CHAIN CONSULTANT [facility] MONOCYTES 5 % 11/10/2023 6:55 AM SUPPLY CHAIN CONSULTANT [facility] EOSINOPHILS 10 % 11/10/2023 6:55 AM SUPPLY CHAIN CONSULTANT [facility] BASOPHILS 1 % 11/10/2023 6:55 AM SUPPLY CHAIN CONSULTANT [facility] LABORATORY SERVICES [facility] NEUTROPHIL ABSOLUTE 4.90 1.90 - 7.00 K/uL 11/10/2023 6:55 AM SUPPLY CHAIN CONSULTANT [facility] LABORATORY SERVICES [facility] LYMPHOCYTE ABSOLUTE 1.70 0.70 - 4.50 K/uL 11/10/2023 6:55 AM SUPPLY CHAIN CONSULTANT [facility] LABORATORY SERVICES [facility] MONOCYTE ABSOLUTE 0.40 0.10 - 1.30 K/uL 11/10/2023 6:55 AM SUPPLY CHAIN CONSULTANT [facility] LABORATORY SERVICES [facility] EOSINOPHIL ABSOLUTE 0.80(H) 0.00 - 0.70 K/uL 11/10/2023 6:55 AM SUPPLY CHAIN CONSULTANT [facility] BASOPHILS ABSOLUTE 0.10 0.00 - 0.20 K/uL 11/10/2023 6:55 AM [facility] Blood 11/10/2023 6:10 AM SUPPLY CHAIN CONSULTANT 11/10/2023 6:41 AM SUPPLY CHAIN CONSULTANT Erik Chairez MD HEMATOLOGY ORDERABLES Final Resu lt [facility] CLIA# [id number] [place] [address] * (ABNORMAL) BASIC METABOLIC PANEL (11/10/2023 6:10 AM SUPPLY CHAIN CONSULTANT) SODIUM 139 136 - 145 mmol/L 11/10/2023 7:14 AM [facility] POTASSIUM 4.2 3.4 - 5.1 mmol/L 11/10/2023 7:14 AM [facility] CHLORIDE 103 98 - 107 mmol/L 11/10/2023 7:14 AM [facility] CO2 26 22 - 29 mmol/L 11/10/2023 7:14 AM [facility] CALCIUM 9.4 8.6 - 10.4 mg/dL 11/10/2023 7:14 AM [facility] BUN 39(H) 6 - 20 mg/dL 11/10/2023 7:14 AM [facility] CREATININE 0.98 0.67 - 1.17 mg/dL 11/10/2023 7:14 AM [facility] Comment:The GFR result is no t clinically significant on patients <18 or >70 years of age. GLUCOSE 111(H) 74 - 99 mg/dL 11/10/2023 7:14 AM [facility] GFR >60 mL/min/1.7 3 sq meter 11/10/2023 7:14 AM [facility] Comment:eGFR calculated with 2020 CKD-EPI equation. Vegetarian diet, extremely high or low muscle mass, and may affect results. Cystatin C with Glomerular Filtration Rate is a suitable alternative for these patients. 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
--- OUTSIDE RECORDS SUMMARY | 2025-06-01 13:29 | XMS_ITS | Encounter Summary ---
Author Organization [facility] Address [address] [place] [address] Care Team Providers Care Technical Support Consultant Name Role Phone Unavailable Primary Care Provider Unavailabl e Encounter Details Date Type Department Care Team (Late st Contact Info) Description 11/04/2023 Lab Requisition [facility] Laboratory Services [address] [place] [address] [place] [address] [place] [address] Social History Tobacco Use Types Packs/Day Years Used Date Smoking Tobacco: Never Assessed Sex and Gender Information Value Date Recorded Sex Assigned at Not on file Legal Sex Male 9:18 AM LINE PRODUCER Gender Identity Not on file Sexual Orientation Not on file documented as of this encounter Plan of Treatment Not on file documented as of this encounter Procedures Procedure Name Priority Date/Time Associated Diagnosis Comments CBC WITH DIFFERENTIAL Routine 11/04/2023 3:45 AM LINE PRODUCER BASIC METABOLIC PANEL Routine 11/04/2023 3:45 AM LINE PRODUCER documented in this encounter Results * (ABNORMAL) CBC WITH DIFFERENTIAL (11/04/2023 3:45 AM LINE PRODUCER) WBC 12.2(H) 4.5 - 10.5 K/uL 11/04/2023 8:52 AM LINE PRODUCER [facility] - [facility] RBC 4.11(L) 4.50 - 5.40 M/uL 11/04/2023 8:52 AM LINE PRODUCER [facility] HEMOGLOBIN 11.7(L) 13.6 - 16.5 g/dL 11/04/2023 8:52 AM LINE PRODUCER [facility] HEMATOCRIT 37.9(L) 40.0 - 48.0 % 11/04/2023 8:52 AM LINE PRODUCER [facility] MCV 92.2 82.0 - 99.0 fL 11/04/2023 8:52 AM LINE PRODUCER [facility] MCH 28.5 27.8 - 34.5 pg 11/04/2023 8:52 AM LINE PRODUCER [facility] MCHC 30.9(L) 32.5 - 35.5 g/dL 11/04/2023 8:52 AM LINE PRODUCER [facility] RDW 17.0(H) 11.5 - 14.5 % 11/04/2023 8:52 AM LINE PRODUCER [facility] PLATELETS 272 160 - 420 K/uL 11/04/2023 8:52 AM LINE PRODUCER [facility] MPV 10.0 8.7 - 12.7 fL 11/04/2023 8:52 AM LINE PRODUCER [facility] NEUTROPHILS 45 % 11/04/2023 8:52 AM LINE PRODUCER [facility] LYMPHOCYTES 38 % 11/04/2023 8:52 AM LINE PRODUCER [facility] MONOCYTES 7 % 11/04/2023 8:52 AM LINE PRODUCER [facility] EOSINOPHILS 11 % 11/04/2023 8:52 AM LINE PRODUCER [facility] BASOPHILS 1 % 11/04/2023 8:52 AM LINE PRODUCER [facility] NEUTROPHIL ABSOLUTE 5.50 1.90 - 7.00 K/uL 11/04/2023 8:52 AM LINE PRODUCER [facility] LYMPHOCYTE ABSOLUTE 4.60(H) 0.70 - 4.50 K/uL 11/04/2023 8:52 AM LINE PRODUCER [facility] MONOCYTE ABSOLUTE 0.80 0.10 - 1.30 K/uL 11/04/2023 8:52 AM LINE PRODUCER [facility] EOSINOPHIL ABSOLUTE 1.30(H) 0.00 - 0.70 K/uL 11/04/2023 8:52 AM LINE PRODUCER [facility] BASOPHILS ABSOLUTE 0.10 0.00 - 0.20 K/uL 11/04/2023 8:52 AM [facility] [employer] [facility] Blood 11/04/2023 3:45 AM LINE PRODUCER 11/04/2023 8:24 AM LINE PRODUCER Erik Chairez MD HEMATOLOGY ORDERABLES Final Resu lt [facility] CLIA# [id number] [place] [address] * (ABNORMAL) BASIC METABOLIC PANEL (11/04/2023 3:45 AM LINE PRODUCER) SODIUM 144 136 - 145 mmol/L 11/04/2023 9:49 AM [facility] POTASSIUM 5.3(H) 3.4 - 5.1 mmol/L 11/04/2023 9:49 AM [facility] CHLORIDE 103 98 - 107 mmol/L 11/04/2023 9:49 AM [facility] CO2 26 22 - 29 mmol/L 11/04/2023 9:49 AM [facility] CALCIUM 10.7(H) 8.6 - 10.4 mg/dL 11/04/2023 9:49 AM [facility] BUN 38(H) 6 - 20 mg/dL 11/04/2023 9:49 AM [facility] CREATININE 0.95 0.67 - 1.17 mg/dL 11/04/2023 9:49 AM [facility] Comment:The GFR result is no t clinically significant on patients <18 or >70 years of age. GLUCOSE 114(H) 74 - 99 mg/dL 11/04/2023 9:49 AM [facility] GFR >60 mL/min/1.7 3 sq meter 11/04/2023 9:49 AM [facility] Comment:eGFR calculated with 2020 CKD-EPI equation. Vegetarian diet, extremely high or low muscle mass, and may affect results. Cystatin C with Glomerular Filtration Rate is a suitable alternative for these patients. ANION GAP 15 8 - 16 mmol/L 11/04/2023 9:49 AM LINE PRODUCER [facility] Blood 11/04/2023 3:45 AM LINE PRODUCER 11/04/2023 8:24 AM LINE PRODUCER Erik Chairez MD CHEMISTRY ORDERABLES Final Resul t 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
--- OUTSIDE RECORDS SUMMARY | 2025-06-01 13:29 | XMS_ITS | Encounter Summary ---
Author Organization [email or web address] [facility] Address [address] [place] [address] Care Team Providers Care Crystal Cutter Name Role Phone Unavailable Primary Care Provider Unavailabl e Encounter Details Date Type Department Care Team (Late st Contact Info) Description 10/11/2023 Lab Requisition [facility] Laboratory Services [address] [place] [address] [place] [address] [place] [address] Social History Tobacco Use Types Packs/Day Years Used Date Smoking Tobacco: Never Assessed Sex and Gender Information Value Date Recorded Sex Assigned at Not on file Legal Sex Male 9:18 AM INTEGRATION DEVELOPER Gender Identity Not on file Sexual Orientation Not on file documented as of this encounter Plan of Treatment Not on file documented as of this encounter Procedures Procedure Name Priority Date/Time Associated Diagnosis Comments CBC WITH DIFFERENTIAL Routine 10/11/2023 3:30 AM INTEGRATION DEVELOPER TRIGLYCERIDE Routine 10/11/2023 3:30 AM INTEGRATION DEVELOPER MAGNESIUM LEVEL Routine 10/11/2023 3:30 AM INTEGRATION DEVELOPER RENAL FUNCTION PANEL Routine 10/11/2023 3:30 AM INTEGRATION DEVELOPER documented in this encounter Results * (ABNORMAL) TRIGLYCERIDE (10/11/2023 3:30 AM INTEGRATION DEVELOPER) TRIGLYCERIDE 192(H) <150 mg/dL 10/11/2023 6:28 AM INTEGRATION DEVELOPER [facility] LABORATORY SERVICES [facility] Blood 10/11/2023 3:30 AM INTEGRATION DEVELOPER 10/11/2023 5:43 AM INTEGRATION DEVELOPER Narrative [facility] [employer] [facility] - 10/11/2023 6:28 AM INTEGRATION DEVELOPER TRIGLYCERIDES mg/dL Normal < 150 Borderline High 150 - 199 High 200 - 499 Very High >= 500 Based on AHA/NCEP Guidelines. Erik Chairez MD CHEMISTRY ORDERABLES Final Resul t Performing Organization Address City/[facility]/ZIP Co de Phone Number [facility] CLIA# [id number] [place] [address] * MAGNESIUM LEVEL (10/11/2023 3:30 AM INTEGRATION DEVELOPER) MAGNESIUM 2.2 1.6 - 2.6 mg/dL 10/11/2023 6:28 AM [facility] Blood 10/11/2023 3:30 AM INTEGRATION DEVELOPER 10/11/2023 5:43 AM INTEGRATION DEVELOPER Erik Chairez MD CHEMISTRY ORDERABLES Final Resul t Performing Organization Address City/[facility]/ZIP Co de Phone Number [facility] CLIA# [id number] [place] [address] * (ABNORMAL) CBC WITH DIFFERENTIAL (10/11/2023 3:30 AM INTEGRATION DEVELOPER) WBC 8.8 4.5 - 10.5 K/uL 10/11/2023 6:05 AM [facility] [employer] [facility] RBC 3.43(L) 4.50 - 5.40 M/uL 10/11/2023 6:05 AM [facility] [employer] [facility] HEMOGLOBIN 10.5(L) 13.6 - 16.5 g/dL 10/11/2023 6:05 AM [facility] HEMATOCRIT 32.7(L) 40.0 - 48.0 % 10/11/2023 6:05 AM [facility] MCV 95.4 82.0 - 99.0 fL 10/11/2023 6:05 AM [facility] MCH 30.7 27.8 - 34.5 pg 10/11/2023 6:05 AM [facility] MCHC 32.2(L) 32.5 - 35.5 g/dL 10/11/2023 6:05 AM [facility] RDW 18.7(H) 11.5 - 14.5 % 10/11/2023 6:05 AM [facility] PLATELETS 218 160 - 420 K/uL 10/11/2023 6:05 AM [facility] MPV 9.3 8.7 - 12.7 fL 10/11/2023 6:05 AM INTEGRATION DEVELOPER [facility]ORATORY SERVICES [facility] NEUTROPHILS 67 % 10/11/2023 6:05 AM INTEGRATION DEVELOPER [facility] SERVICES [facility] LYMPHOCYTES 18 % 10/11/2023 6:05 AM INTEGRATION DEVELOPER [facility]AT[facility] SERVICES [facility] MONOCYTES 7 % 10/11/2023 6:05 AM INTEGRATION DEVELOPER [facility] EOSINOPHILS 7 % 10/11/2023 6:05 AM [facility] BASOPHILS 1 % 10/11/2023 6:05 AM INTEGRATION DEVELOPER [facility] NEUTROPHIL ABSOLUTE 5.90 1.90 - 7.00 K/uL 10/11/2023 6:05 AM [facility] LYMPHOCYTE ABSOLUTE 1.60 0.70 - 4.50 K/uL 10/11/2023 6:05 AM [facility] MONOCYTE ABSOLUTE 0.60 0.10 - 1.30 K/uL 10/11/2023 6:05 AM [facility] EOSINOPHIL ABSOLUTE 0.60 0.00 - 0.70 K/uL 10/11/2023 6:05 AM INTEGRATION DEVELOPER [facility] BASOPHILS ABSOLUTE 0.10 0.00 - 0.20 K/uL 10/11/2023 6:05 AM [facility] Blood 10/11/2023 3:30 AM INTEGRATION DEVELOPER 10/11/2023 5:43 AM INTEGRATION DEVELOPER us Erik Chairez MD HEMATOLOGY ORDERABLES Final Resu lt [facility] CLIA# [id number] [address] [place] [address] * (ABNORMAL) RENAL FUNCTION PANEL (10/11/2023 3:30 AM INTEGRATION DEVELOPER) SODIUM 145 136 - 145 mmol/L 10/11/2023 6:28 AM [facility] [employer] [facility] POTASSIUM 4.0 3.4 - 5.1 mmol/L 10/11/2023 6:28 AM [facility] CHLORIDE 106 98 - 107 mmol/L 10/11/2023 6:28 AM [facility] CO2 26 22 - 29 mmol/L 10/11/2023 6:28 AM [facility] CALCIUM 9.3 8.6 - 10.4 mg/dL 10/11/2023 6:28 AM [facility] BUN 38(H) 6 - 20 mg/dL 10/11/2023 6:28 AM [facility] CREATININE 1.38(H) 0.67 - 1.17 mg/dL 10/11/2023 6:28 AM [facility] Comment:The GFR result is no t clinically significant on patients <18 or >70 years of age. GLUCOSE 85 74 - 99 mg/dL 10/11/2023 6:28 AM [facility] ALBUMIN 3.4(L) 3.5 - 5.2 g/dL 10/11/2023 6:28 AM [facility] PHOSPHORUS 3.9 2.5 - 4.5 mg/dL 10/11/2023 6:28 AM [facility] GFR 51 mL/min/1.7 3 sq meter 10/11/2023 6:28 AM [facility] Comment:eGFR calculated with 2020 CKD-EPI equation. Vegetarian diet, extremely high or low muscle mass, and may affect results. Cystatin C with Glomerular Filtration Rate is a suitable alternative for these patients. 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
--- OUTSIDE RECORDS SUMMARY | 2025-06-01 13:29 | XMS_ITS | Encounter Summary ---
Author Organization [facility] Address [address] [place] [address] Care Team Providers Care Fundraising Coordinator Name Role Phone Unavailable Primary Care Provider Unavailabl e Encounter Details Date Type Department Care Team (Late st Contact Info) Description 11/05/2023 Lab Requisition [facility] Laboratory Services [address] [place] [address] [place] [address] [place] [address] Social History Tobacco Use Types Packs/Day Years Used Date Smoking Tobacco: Never Assessed Sex and Gender Information Value Date Recorded Sex Assigned at Not on file Legal Sex Male 9:18 AM GENERAL MANAGER [employer]ACLE DATA CLOUD Gender Identity Not on file Sexual Orientation Not on file documented as of this encounter Plan of Treatment Not on file documented as of this encounter Procedures Procedure Name Priority Date/Time Associated Diagnosis Comments DIFFERENTIAL, MANUAL Routine 11/05/2023 3:30 AM GENERAL MANAGER [employer]ACLE DATA [employer]OUD CBC WITH DIFFERENTIAL Routine 11/05/2023 3:30 AM GENERAL MANAGER [employer]ACLE DATA CLOUD documented in this encounter Results * MANUAL DIFFERENTIAL (11/05/2023 3:30 AM GENERAL MANAGER ORACLE DATA CLOUD) PLATELET EST. Consistent w Count 11/05/2023 6:05 AM GENERAL MANAGER [employer]ACLE DATA [employer]OUD [facility] RBC MORPHOLOGY Normal 11/05/2023 6:05 AM GENERAL MANAGER [employer]ACLE DATA CLOUD [facility] Blood Collection / Unknown 11/05/2023 3:30 AM GENERAL MANAGER [employer]ACLE DATA CLOUD 11/05/2023 5:05 AM GENERAL MANAGER [employer]ACLE DATA CLOUD Erik Chairez MD HEMATOLOGY ORDERABLES COM Final Result [facility] CLIA# [id number] [address] [place] [address] * (ABNORMAL) CBC WITH DIFFERENTIAL (11/05/2023 3:30 AM GENERAL MANAGER ORACLE DATA CLOUD) [facility] WBC 7.5 4.5 - 10.5 K/uL 11/05/2023 6:05 AM [facility] RBC 3.81(L) 4.50 - 5.40 M/uL 11/05/2023 6:05 AM [facility] HEMOGLOBIN 11.9(L) 13.6 - 16.5 g/dL 11/05/2023 6:05 AM [facility] HEMATOCRIT 35.6(L) 40.0 - 48.0 % 11/05/2023 6:05 AM [facility] [employer] [facility] MCV 93.5 82.0 - 99.0 fL 11/05/2023 6:05 AM [facility] [place] [facility] MCH 31.2 27.8 - 34.5 pg 11/05/2023 6:05 AM [facility] [place] [facility] MCHC 33.3 32.5 - 35.5 g/dL 11/05/2023 6:05 AM [facility] [place] [facility] RDW 17.0(H) 11.5 - 14.5 % 11/05/2023 6:05 AM [facility] [place] [facility] PLATELETS 243 160 - 420 K/uL 11/05/2023 6:05 AM [facility] [place] [facility] MPV 9.4 8.7 - 12.7 fL 11/05/2023 6:05 AM [facility] NEUTROPHILS 63 % 11/05/2023 6:05 AM GENERAL MANAGER ORACLE DATA CLOUD [facility] [place] [facility] LYMPHOCYTES 23 % 11/05/2023 6:05 AM GENERAL MANAGER ORACLE DATA CLOUD [facility] MONOCYTES 5 % 11/05/2023 6:05 AM [facility] EOSINOPHILS 9 % 11/05/2023 6:05 AM GENERAL MANAGER ORACLE DATA CLOUD [facility] BASOPHILS 1 % 11/05/2023 6:05 AM GENERAL MANAGER ORACLE DATA CLOUD [facility] NEUTROPHIL ABSOLUTE 4.70 1.90 - 7.00 K/uL 11/05/2023 6:05 AM GENERAL MANAGER ORACLE DATA CLOUD [facility] LYMPHOCYTE ABSOLUTE 1.70 0.70 - 4.50 K/uL 11/05/2023 6:05 AM GENERAL MANAGER ORACLE DATA CLOUD [facility] MONOCYTE ABSOLUTE 0.40 0.10 - 1.30 K/uL 11/05/2023 6:05 AM GENERAL MANAGER ORACLE DATA CLOUD [facility] EOSINOPHIL ABSOLUTE 0.70 0.00 - 0.70 K/uL 11/05/2023 6:05 AM GENERAL MANAGER ORACLE DATA CLOUD [facility]AT[facility] SERVICES - [facility] BASOPHILS ABSOLUTE 0.00 0.00 - 0.20 K/uL 11/05/2023 6:05 AM GENERAL MANAGER ORACLE DATA CLOUD [facility] Blood Collection / Unknown 11/05/2023 3:30 AM GENERAL MANAGER ORACLE DATA CLOUD 11/05/2023 5:05 AM GENERAL MANAGER [employer]LE DATA [employer]OUD Erik Chairez MD HEMATOLOGY ORDERABLES Final Resu lt [facility] CLIA# [id number] [address] [place] [address] documented in this encounter Visit Diagnoses Not on filedocumented in this encounter Additional Health Concerns Infection Onset Date Last Indicated Resolved Time 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
--- OUTSIDE RECORDS SUMMARY | 2025-06-01 13:29 | XMS_ITS | Encounter Summary ---
Author Organization [facility] Address [address] [place] [address] Care Team Providers Care Line Out Worker Name Role Phone Unavailable Primary Care Provider Unavailabl e Encounter Details Date Type Department Care Team (Late st Contact Info) Description 10/26/2023 Lab Requisition [facility] Laboratory Services [address] [place] [address] [place] [address] [place] [address] Social History Tobacco Use Types Packs/Day Years Used Date Smoking Tobacco: Never Assessed Sex and Gender Information Value Date Recorded Sex Assigned at Not on file Legal Sex Male 9:18 AM SPRIGGER Gender Identity Not on file Sexual Orientation Not on file documented as of this encounter Plan of Treatment Not on file documented as of this encounter Procedures Procedure Name Priority Date/Time Associated Diagnosis Comments CBC WITH DIFFERENTIAL Routine 10/26/2023 3:20 AM SPRIGGER BASIC METABOLIC PANEL Routine 10/26/2023 3:20 AM SPRIGGER documented in this encounter Results * (ABNORMAL) CBC WITH DIFFERENTIAL (10/26/2023 3:20 AM SPRIGGER) WBC 9.2 4.5 - 10.5 K/uL 10/26/2023 5:32 AM SPRIGGER [facility] RBC 3.83(L) 4.50 - 5.40 M/uL 10/26/2023 5:32 AM SPRIGGER [facility] HEMOGLOBIN 11.4(L) 13.6 - 16.5 g/dL 10/26/2023 5:32 AM SPRIGGER [facility] HEMATOCRIT 35.4(L) 40.0 - 48.0 % 10/26/2023 5:32 AM SPRIGGER [facility] SERVICES [facility] MCV 92.4 82.0 - 99.0 fL 10/26/2023 5:32 AM SPRIGGER [facility] MCH 29.6 27.8 - 34.5 pg 10/26/2023 5:32 AM SPRIGGER [facility] MCHC 32.0(L) 32.5 - 35.5 g/dL 10/26/2023 5:32 AM SPRIGGER [facility] RDW 17.3(H) 11.5 - 14.5 % 10/26/2023 5:32 AM SPRIGGER [facility] PLATELETS 240 160 - 420 K/uL 10/26/2023 5:32 AM SPRIGGER [facility] SERVICES [facility] MPV 9.3 8.7 - 12.7 fL 10/26/2023 5:32 AM SPRIGGER [facility] NEUTROPHILS 69 % 10/26/2023 5:32 AM SPRIGGER [facility] LYMPHOCYTES 21 % 10/26/2023 5:32 AM SPRIGGER [facility] LABORATORY SERVICES [facility] MONOCYTES 6 % 10/26/2023 5:32 AM SPRIGGER [facility] EOSINOPHILS 4 % 10/26/2023 5:32 AM SPRIGGER [facility] BASOPHILS 1 % 10/26/2023 5:32 AM SPRIGGER [facility] NEUTROPHIL ABSOLUTE 6.30 1.90 - 7.00 K/uL 10/26/2023 5:32 AM SPRIGGER [facility] LYMPHOCYTE ABSOLUTE 1.90 0.70 - 4.50 K/uL 10/26/2023 5:32 AM SPRIGGER [facility] MONOCYTE ABSOLUTE 0.50 0.10 - 1.30 K/uL 10/26/2023 5:32 AM SPRIGGER [facility] SERVICES [facility] EOSINOPHIL ABSOLUTE 0.40 0.00 - 0.70 K/uL 10/26/2023 5:32 AM SPRIGGER [facility] BASOPHILS ABSOLUTE 0.00 0.00 - 0.20 K/uL 10/26/2023 5:32 AM [facility] Blood Collection / Unknown 10/26/2023 3:20 AM SPRIGGER 10/26/2023 4:57 AM SPRIGGER Erik Chairez MD HEMATOLOGY ORDERABLES Final Resu lt [facility] CLIA# [id number] [place] [address] * (ABNORMAL) BASIC METABOLIC PANEL (10/26/2023 3:20 AM SPRIGGER) SODIUM 137 136 - 145 mmol/L 10/26/2023 5:58 AM [facility] POTASSIUM 4.2 3.4 - 5.1 mmol/L 10/26/2023 5:58 AM [facility] CHLORIDE 100 98 - 107 mmol/L 10/26/2023 5:58 AM [facility] CO2 27 22 - 29 mmol/L 10/26/2023 5:58 AM [facility] CALCIUM 9.8 8.6 - 10.4 mg/dL 10/26/2023 5:58 AM [facility] BUN 39(H) 6 - 20 mg/dL 10/26/2023 5:58 AM [facility] CREATININE 1.01 0.67 - 1.17 mg/dL 10/26/2023 5:58 AM [facility] Comment:The GFR result is no t clinically significant on patients <18 or >70 years of age. GLUCOSE 110(H) 74 - 99 mg/dL 10/26/2023 5:58 AM [facility] GFR >60 mL/min/1.7 3 sq meter 10/26/2023 5:58 AM [facility] Comment:eGFR calculated with 2020 CKD-EPI equation. Vegetarian diet, extremely high or low muscle mass, and may affect results. Cystatin C with Glomerular Filtration Rate is a suitable alternative for these patients. 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
--- OUTSIDE RECORDS SUMMARY | 2025-06-01 13:29 | XMS_ITS | Encounter Summary ---
Author Organization [facility] Address [address] [place] [address] Care Team Providers Care Clinical Therapist Name Role Phone Unavailable Primary Care Provider Unavailabl e Encounter Details Date Type Department Care Team (Late st Contact Info) Description 10/10/2023 Lab Requisition [facility] Laboratory Services [address] [place] [address] [place] [address] [place] [address] Social History Tobacco Use Types Packs/Day Years Used Date Smoking Tobacco: Never Assessed Sex and Gender Information Value Date Recorded Sex Assigned at Not on file Legal Sex Male 9:18 AM GROCERY ASSOCIATE Gender Identity Not on file Sexual Orientation Not on file documented as of this encounter Plan of Treatment Not on file documented as of this encounter Procedures Procedure Name Priority Date/Time Associated Diagnosis Comments CBC WITH DIFFERENTIAL Routine 10/10/2023 3:30 AM GROCERY ASSOCIATE PTT Routine 10/10/2023 3:30 AM GROCERY ASSOCIATE PROTIME-INR Routine 10/10/2023 3:30 AM GROCERY ASSOCIATE PREALBUMIN Routine 10/10/2023 3:30 AM GROCERY ASSOCIATE COMPREHENSIVE METABOLIC PANEL Routine 10/10/2023 3:30 AM GROCERY ASSOCIATE documented in this encounter Results * PTT (10/10/2023 3:30 AM GROCERY ASSOCIATE) PTT 23.4 23.1 - 37.1 seconds 10/10/2023 10:14 AM GROCERY ASSOCIATE [facility] Blood Collection / Unknown 10/10/2023 3:30 AM GROCERY ASSOCIATE 10/10/2023 9:51 AM GROCERY ASSOCIATE Erik Chairez MD HEMATOLOGY ORDERABLES Final Resu lt [facility] CLIA# [id number] [address] [place] [address] * (ABNORMAL) PROTIME-INR (10/10/2023 3:30 AM GROCERY ASSOCIATE) PROTIME 15.0(H) 11.5 - 14.7 Seconds 10/10/2023 10:14 AM GROCERY ASSOCIATE [facility] INR 1.2(H) 0.9 - 1.1 10/10/2023 10:14 AM GROCERY ASSOCIATE [facility] Blood Collection / Unknown 10/10/2023 3:30 AM GROCERY ASSOCIATE 10/10/2023 9:51 AM GROCERY ASSOCIATE Erik Chairez MD HEMATOLOGY ORDERABLES Final Resu lt [facility] CLIA# [id number] [place] [address] * PREALBUMIN (10/10/2023 3:30 AM GROCERY ASSOCIATE) PREALBUMIN 23 20 - 40 mg/dL 10/10/2023 2:24 PM GROCERY ASSOCIATE [facility] LABORATORY [facility] Blood Collection / Unknown 10/10/2023 3:30 AM GROCERY ASSOCIATE 10/10/2023 9:51 AM GROCERY ASSOCIATE Erik Chairez MD CHEMISTRY ORDERABLES Final Resul t [facility] CLIA# [id number] [address] [place] [address] * (ABNORMAL) CBC WITH DIFFERENTIAL (10/10/2023 3:30 AM GROCERY ASSOCIATE) [facility] WBC 10.1 4.5 - 10.5 K/uL 10/10/2023 11:06 AM [facility] RBC 3.85(L) 4.50 - 5.40 M/uL 10/10/2023 11:06 AM [facility] HEMOGLOBIN 11.6(L) 13.6 - 16.5 g/dL 10/10/2023 11:06 AM [facility] HEMATOCRIT 36.6(L) 40.0 - 48.0 % 10/10/2023 11:06 AM [facility] MCV 95.2 82.0 - 99.0 fL 10/10/2023 11:06 AM [facility] MCH 30.1 27.8 - 34.5 pg 10/10/2023 11:06 AM [facility] MCHC 31.6(L) 32.5 - 35.5 g/dL 10/10/2023 11:06 AM [facility] RDW 19.2(H) 11.5 - 14.5 % 10/10/2023 11:06 AM [facility] PLATELETS 250 160 - 420 K/uL 10/10/2023 11:06 AM [facility] MPV 9.8 8.7 - 12.7 fL 10/10/2023 11:06 AM [facility] NEUTROPHILS 72 % 10/10/2023 11:06 AM [facility] LYMPHOCYTES 15 % 10/10/2023 11:06 AM GROCERY ASSOCIATE [facility] MONOCYTES 7 % 10/10/2023 11:06 AM GROCERY ASSOCIATE [facility] EOSINOPHILS 5 % 10/10/2023 11:06 AM GROCERY ASSOCIATE [facility] BASOPHILS 0 % 10/10/2023 11:06 AM [facility] LABORATORY [facility] NEUTROPHIL ABSOLUTE 7.20(H) 1.90 - 7.00 K/uL 10/10/2023 11:06 AM [facility] LYMPHOCYTE ABSOLUTE 1.50 0.70 - 4.50 K/uL 10/10/2023 11:06 AM GROCERY ASSOCIATE [facility] MONOCYTE ABSOLUTE 0.70 0.10 - 1.30 K/uL 10/10/2023 11:06 AM GROCERY ASSOCIATE [facility]ORAT[facility] EOSINOPHIL ABSOLUTE 0.50 0.00 - 0.70 K/uL 10/10/2023 11:06 AM GROCERY ASSOCIATE [facility] BASOPHILS ABSOLUTE 0.00 0.00 - 0.20 K/uL 10/10/2023 11:06 AM GROCERY ASSOCIATE [facility] Blood Collection / Unknown 10/10/2023 3:30 AM GROCERY ASSOCIATE 10/10/2023 9:51 AM GROCERY ASSOCIATE us Erik Chairez MD HEMATOLOGY ORDERABLES Final Resu lt [facility] CLIA# [id number] [address] [place] [address] * (ABNORMAL) COMPREHENSIVE METABOLIC PANEL (10/10/2023 3:30 AM GROCERY ASSOCIATE) SODIUM 142 136 - 145 mmol/L 10/10/2023 10:49 AM [facility] POTASSIUM 4.1 3.4 - 5.1 mmol/L 10/10/2023 10:49 AM [facility] CHLORIDE 104 98 - 107 mmol/L 10/10/2023 10:49 AM [facility] CO2 23 22 - 29 mmol/L 10/10/2023 10:49 AM [facility] CALCIUM 9.4 8.6 - 10.4 mg/dL 10/10/2023 10:49 AM [facility] BUN 34(H) 6 - 20 mg/dL 10/10/2023 10:49 AM [facility] CREATININE 1.24(H) 0.67 - 1.17 mg/dL 10/10/2023 10:49 AM [facility] LABORAT[facility] Comment:The GFR result is no t clinically significant on patients <18 or >70 years of age. GLUCOSE 91 74 - 99 mg/dL 10/10/2023 10:49 AM [facility] TOTAL PROTEIN 7.4 6.3 - 8.7 g/dL 10/10/2023 10:49 AM [facility] ALBUMIN 3.6 3.5 - 5.2 g/dL 10/10/2023 10:49 AM [facility] BILIRUBIN TOTAL 0.6 0.2 - 1.1 mg/dL 10/10/2023 10:49 AM [facility] ALKALINE PHOSPHATASE 84 40 - 150 U/L 10/10/2023 10:49 AM [facility] AST 15 0 - 41 U/L 10/10/2023 10:49 AM [facility] ALT 13 0 - 41 U/L 10/10/2023 10:49 AM [facility] GFR 58 mL/min/1.7 3 sq meter 10/10/2023 10:49 AM [facility] Comment:eGFR calculated with 2020 CKD-EPI equation. Vegetarian diet, extremely high or low muscle mass, and may affect results. Cystatin C with Glomerular Filtration Rate is a suitable alternative for these patients. 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
--- OUTSIDE RECORDS SUMMARY | 2025-06-01 13:29 | XMS_ITS | Encounter Summary ---
Author Organization [facility] Address [address] [place] [address] Care Team Providers Care Fiberglass Product Tester Name Role Phone Unavailable Primary Care Provider Unavailabl e Encounter Details Date Type Department Care Team (Late st Contact Info) Description 11/07/2023 Lab Requisition [facility] Laboratory Services [address] [place] [address] [place] [address] [place] [address] Social History Tobacco Use Types Packs/Day Years Used Date Smoking Tobacco: Never Assessed Sex and Gender Information Value Date Recorded Sex Assigned at Not on file Legal Sex Male 9:18 AM REVENUE ACCOUNTANT Gender Identity Not on file Sexual Orientation Not on file documented as of this encounter Plan of Treatment Not on file documented as of this encounter Procedures Procedure Name Priority Date/Time Associated Diagnosis Comments CBC WITH DIFFERENTIAL Routine 11/07/2023 4:30 AM REVENUE ACCOUNTANT BASIC METABOLIC PANEL Routine 11/07/2023 4:30 AM REVENUE ACCOUNTANT documented in this encounter Results * (ABNORMAL) CBC WITH DIFFERENTIAL (11/07/2023 4:30 AM REVENUE ACCOUNTANT) WBC 9.4 4.5 - 10.5 K/uL 11/07/2023 8:10 AM REVENUE ACCOUNTANT [facility] RBC 4.06(L) 4.50 - 5.40 M/uL 11/07/2023 8:10 AM REVENUE ACCOUNTANT [facility] HEMOGLOBIN 11.9(L) 13.6 - 16.5 g/dL 11/07/2023 8:10 AM REVENUE ACCOUNTANT [facility] HEMATOCRIT 37.1(L) 40.0 - 48.0 % 11/07/2023 8:10 AM REVENUE ACCOUNTANT [facility] MCV 91.5 82.0 - 99.0 fL 11/07/2023 8:10 AM REVENUE ACCOUNTANT [facility] MCH 29.4 27.8 - 34.5 pg 11/07/2023 8:10 AM REVENUE ACCOUNTANT [facility] MCHC 32.1(L) 32.5 - 35.5 g/dL 11/07/2023 8:10 AM REVENUE ACCOUNTANT [facility] RDW 16.9(H) 11.5 - 14.5 % 11/07/2023 8:10 AM REVENUE ACCOUNTANT [facility] PLATELETS 270 160 - 420 K/uL 11/07/2023 8:10 AM REVENUE ACCOUNTANT [facility] MPV 10.0 8.7 - 12.7 fL 11/07/2023 8:10 AM REVENUE ACCOUNTANT [facility] NEUTROPHILS 61 % 11/07/2023 8:10 AM REVENUE ACCOUNTANT [facility] LYMPHOCYTES 21 % 11/07/2023 8:10 AM REVENUE ACCOUNTANT [facility] MONOCYTES 6 % 11/07/2023 8:10 AM REVENUE ACCOUNTANT [facility] EOSINOPHILS 11 % 11/07/2023 8:10 AM REVENUE ACCOUNTANT [facility] BASOPHILS 1 % 11/07/2023 8:10 AM REVENUE ACCOUNTANT [facility] NEUTROPHIL ABSOLUTE 5.70 1.90 - 7.00 K/uL 11/07/2023 8:10 AM REVENUE ACCOUNTANT [facility] LYMPHOCYTE ABSOLUTE 2.00 0.70 - 4.50 K/uL 11/07/2023 8:10 AM REVENUE ACCOUNTANT [facility] MONOCYTE ABSOLUTE 0.60 0.10 - 1.30 K/uL 11/07/2023 8:10 AM REVENUE ACCOUNTANT [facility] EOSINOPHIL ABSOLUTE 1.00(H) 0.00 - 0.70 K/uL 11/07/2023 8:10 AM REVENUE ACCOUNTANT [facility] BASOPHILS ABSOLUTE 0.10 0.00 - 0.20 K/uL 11/07/2023 8:10 AM [facility] Blood 11/07/2023 4:30 AM REVENUE ACCOUNTANT 11/07/2023 8:06 AM REVENUE ACCOUNTANT us Erik Chairez MD HEMATOLOGY ORDERABLES Final Resu lt [facility] CLIA# [id number] [address] [place] [address] * (ABNORMAL) BASIC METABOLIC PANEL (11/07/2023 4:30 AM REVENUE ACCOUNTANT) SODIUM 137 136 - 145 mmol/L 11/07/2023 8:41 AM [facility] POTASSIUM 4.2 3.4 - 5.1 mmol/L 11/07/2023 8:41 AM [facility] CHLORIDE 100 98 - 107 mmol/L 11/07/2023 8:41 AM [facility] CO2 22 22 - 29 mmol/L 11/07/2023 8:41 AM [facility] CALCIUM 9.9 8.6 - 10.4 mg/dL 11/07/2023 8:41 AM [facility] BUN 41(H) 6 - 20 mg/dL 11/07/2023 8:41 AM [facility] CREATININE 1.03 0.67 - 1.17 mg/dL 11/07/2023 8:41 AM [facility] Comment:The GFR result is no t clinically significant on patients <18 or >70 years of age. GLUCOSE 109(H) 74 - 99 mg/dL 11/07/2023 8:41 AM [facility] GFR >60 mL/min/1.7 3 sq meter 11/07/2023 8:41 AM [facility] Comment:eGFR calculated with 2020 CKD-EPI equation. Vegetarian diet, extremely high or low muscle mass, and may affect results. Cystatin C with Glomerular Filtration Rate is a suitable alternative for these patients. 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
--- OUTSIDE RECORDS SUMMARY | 2025-06-01 13:29 | XMS_ITS | Clinical Summary ---
Author Organization [facility] Address [address] [place] [address] Phone Care Team Providers Care Net Mender Name Role Phone Unavailable Primary Care Provider Unavailabl e Social History Tobacco Use Types Packs/Day Years Used Date Smoking Tobacco: Never Assessed Sex and Gender Information Value Date Recorded Sex Assigned at Not on file Legal Sex Male 9:18 AM COLLETER Gender Identity Not on file Sexual Orientation [...] pneumoniae, CRE-CP organism, Sputum 10/09/2023 10/09/2023 PAPER CONE MACHINE OPERATOR-CP Comment:10/09/23 Klebsiella pneumoniae, Sputum 10/09/2023 05/28/[address] [place] [address]
--- OUTSIDE RECORDS SUMMARY | 2025-06-01 13:29 | XMS_ITS | Clinical Summary ---
Author Organization [facility] Address [address] [place] [address] Care Team Providers Care Psychologist Military Personnel Name Role Phone Demond Stark MD Primary Care Provider [phone] Encounters Date Type Department Care Team Description 04/07/2025 Documentation Only [facility] Alan. [address] [place] [id number] Raúl Ross MD 03/31/2025 Orders Only [facility] Alan. [address] [facility] [place] [phone] Rula [address] MA Hypertension (Primary Dx); Long-term drug therapy 03/10/2025 Documentation Only [facility] Alan. [address] [facility] [place] [id number] Raúl Ross MD 03/02/2025 Orders Only [facility] Alan. [address] [facility] [address] [place] [phone] Rula [address] MA Renal insufficiency (Primary Dx); Hypertension; Other proteinuria 03/02/2025 Orders Only [facility] AlanKasie [address] [facility] [place] [id number] Rula [address]all[address] MA Renal insufficiency (Primary Dx); [...] Vaccine (#1) 2025 07/24/2010, 2009 Care Teams Psychologist Military Personnel Relationship Specialty Start Date End Date Demond Stark MD [address] [place] [address] PCP - General Family Medicine 06/04/24
--- OUTSIDE RECORDS SUMMARY | 2025-06-01 13:29 | XMS_ITS | Encounter Summary ---
Author Organization [facility] Address [address] [place] [address] Care Team Providers Care Look Out Tower Fire Watcher Name Role Phone Unavailable Primary Care Provider Unavailabl e Encounter Details Date Type Department Care Team (Late st Contact Info) Description 10/20/2023 Lab Requisition [facility] [address] [place] [address] [place] [address] [place] [address] Social History Tobacco Use Types Packs/Day Years Used Date Smoking Tobacco: Never Assessed Sex and Gender Information Value Date Recorded Sex Assigned at Not on file Legal Sex Male 9:18 AM NEWS INTERN Gender Identity Not on file Sexual Orientation Not on file documented as of this encounter Plan of Treatment Not on file documented as of this encounter Procedures Procedure Name Priority Date/Time Associated Diagnosis Comments CBC WITH DIFFERENTIAL Routine 10/20/2023 2:20 AM NEWS INTERN BASIC METABOLIC PANEL Routine 10/20/2023 2:20 AM NEWS INTERN documented in this encounter Results * (ABNORMAL) CBC WITH DIFFERENTIAL (10/20/2023 2:20 AM NEWS INTERN) WBC 8.3 4.5 - 10.5 K/uL 10/20/2023 5:25 AM NEWS INTERN [facility] SERVICES - [facility] RBC 3.82(L) 4.50 - 5.40 M/uL 10/20/2023 5:25 AM NEWS INTERN [facility] HEMOGLOBIN 11.2(L) 13.6 - 16.5 g/dL 10/20/2023 5:25 AM NEWS INTERN [facility] SERVICES - [facility] HEMATOCRIT 35.0(L) 40.0 - 48.0 % 10/20/2023 5:25 AM NEWS INTERN [facility] LABORATORY SERVICES [facility] MCV 91.6 82.0 - 99.0 fL 10/20/2023 5:25 AM NEWS INTERN [facility] SERVICES - [facility] MCH 29.4 27.8 - 34.5 pg 10/20/2023 5:25 AM NEWS INTERN [facility]OR[facility]ORY SERVICES [facility] MCHC 32.1(L) 32.5 - 35.5 g/dL 10/20/2023 5:25 AM NEWS INTERN [facility] - [facility] RDW 17.4(H) 11.5 - 14.5 % 10/20/2023 5:25 AM NEWS INTERN [facility] - [facility] PLATELETS 255 160 - 420 K/uL 10/20/2023 5:25 AM NEWS INTERN [facility] MPV 9.4 8.7 - 12.7 fL 10/20/2023 5:25 AM NEWS INTERN [facility] - [facility] NEUTROPHILS 60 % 10/20/2023 5:25 AM NEWS INTERN [facility] LYMPHOCYTES 23 % 10/20/2023 5:25 AM NEWS INTERN [employer] LABORATORY SERVICES [facility] MONOCYTES 6 % 10/20/2023 5:25 AM NEWS INTERN [facility] EOSINOPHILS 11 % 10/20/2023 5:25 AM NEWS INTERN [facility] BASOPHILS 1 % 10/20/2023 5:25 AM NEWS INTERN [facility] NEUTROPHIL ABSOLUTE 4.90 1.90 - 7.00 K/uL 10/20/2023 5:25 AM NEWS INTERN [facility] LYMPHOCYTE ABSOLUTE 1.90 0.70 - 4.50 K/uL 10/20/2023 5:25 AM NEWS INTERN [employer] LABORATORY SERVICES [facility] MONOCYTE ABSOLUTE 0.50 0.10 - 1.30 K/uL 10/20/2023 5:25 AM NEWS INTERN [facility] EOSINOPHIL ABSOLUTE 0.90(H) 0.00 - 0.70 K/uL 10/20/2023 5:25 AM NEWS INTERN [facility] BASOPHILS ABSOLUTE 0.00 0.00 - 0.20 K/uL 10/20/2023 5:25 AM [facility] Blood 10/20/2023 2:20 AM NEWS INTERN 10/20/2023 5:15 AM NEWS INTERN Erik Chairez MD HEMATOLOGY ORDERABLES Final Resu lt [facility] CLIA# [id number] [place] [address] * (ABNORMAL) BASIC METABOLIC PANEL (10/20/2023 2:20 AM NEWS INTERN) SODIUM 140 136 - 145 mmol/L 10/20/2023 [...] 8 - 16 mmol/L 10/20/2023 5:53 AM NEWS INTERN [facility]ORY SERVICES [facility] Blood 10/20/2023 2:20 AM NEWS INTERN 10/20/2023 5:15 AM NEWS INTERN Erik hCairez MD CHEMISTRY ORDERABLES Final Resul t [facility] CLIA# [id number] [address] [place] [address] documented in this encounter Visit Diagnoses Not on filedocumented in this encounter Additional Health Concerns Infection Onset Date Last Indicated Resolved Time CRE-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
--- OUTSIDE RECORDS SUMMARY | 2025-06-01 13:29 | XMS_ITS | Encounter Summary ---
Author Organization [facility] Healthcare Address [address] [place] [address] Care Team Providers Care Supervisor Farm Equipment Maintenance Name Role Phone Demond Stark MD Primary Care Provider [phone] Encounter Details Date Type Department Care Team (Late st Contact Info) Description 11/06/2024 Orders Only [facility] Information Management [address] [place] [address] Scanning, Provider Social History Tobacco Use Types [...] on file Legal Sex Male 8:49 AM OTHER SPATIAL SCIENTIST Gender Identity Not on file Sexual Orientation [...] filedocumented in this encounter Care Teams Supervisor Farm Equipment Maintenance Relationship Specialty Start Date End Date Demond Stark MD PCP - General 07/23/11 documented as of this encounter
--- OUTSIDE RECORDS SUMMARY | 2025-06-01 13:29 | XMS_ITS | Clinical Summary ---
Author Organization [facility] [employer] Address [address] [place] [address] Care Team Providers Care Painter Mirror Name Role Phone Demond Stark MD Primary Care Provider [phone] Source Comments [facility] [employer],non-owned Affiliates and Associated Physician Practices is amultiple site organization consisting of ambulatory clinics and hospital sitesin [place], [place], [place] and [place]. This disclosure is being madepursuant to the Care Everywhere program and may not contain all information available regarding this patient. Last updated 18.[facility] [employer] Allergies Active Allergy Reactions Criticality Noted Date [...] 07/20/2013 Overview (01/01/2025): Hypertension Coronary arteriosclerosis in [place] artery 12/20 Overview (01/01/2025): CRNRFlaco GROSSMAN VSSL 2009: Non STEMI and CABG x3 (HOBSON to the LAD, sequential RA to OM and D1) History of coronary artery bypass surgery 2009 Overview (01/01/2025): AORTOCORONARY BYPASS Encounters Date Type Department Care Team Description 04/29/2025 1:00 PM CDT Office Visit [facility] - Neurology [address] [place] [address] Callie Mendoza DO Settu, [place], VINCE-FURNITURE ASSEMBLER AND INSTALLER Chronic subdural hematoma (HCC) (Primary Dx) 04/29/2025 9:13 AM CDT - 04/29/2025 11:59 PM CDT Hospital Encounter [facility] [address] [place] [address] Callie Mendoza DO Discharge Disposition: Home or [...] and heating? Not hard at all 12/25/2024 [facility] [place] [facility] Occupat ional Health - Occupational Stress [...] any time in the past 12 m [facility], were you homeless or living in a correction (including now)? 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 Male 5:43 PM CITY BAILIFF Gender Identity Not on file Sexual Orientation [...] Visit [facility] [address] [place] [address] KellyCallieDO [address] [facility] [address] [place] [address] Health Maintenance Due Date Last Done Comments MEDICARE AWV 12 MONTHS 1940 DTAP/TDAP/TD VACCINES (1 - Tdap) 02/21/1959 PNEUMOCOCCAL VACCINE 50+ (1 of 2 - PCV) 02/21/1959 ZOSTER VACCINE (1 of 2) 02/21/1990 Respiratory Syncytial Virus (RSV) Vaccine Pt: or over 60 yrs (1 - 1-dose 75+ series) 02/21/2015 DEPRESSION SCREENING 09/23/2024 COVID-19 VACCINE (1 - 2023-2 5 season) 2025 INFLUENZA VACCINE (#1) 2025 07/24/2010 HEPATITIS B [...] supplements as ordered Collaborate with the clinical african history professor Oral care Use soft toothbrushes Keep hydrated [...] Last 3 Months Insurance MEDICARE ANTHEM ANTHEM MEDICARE Advance Directives * Full Code (Latest Code Status on File) Date Activated Date Inactivated Comments 12/22/2024 4:39 PM 12/25/2024 7:01 PM Care Teams Painter Mirror Relationship Specialty Start Date End Date Demond Stark MD [address] [place] [address] PCP - General 10/03/15
--- OUTSIDE RECORDS SUMMARY | 2025-06-01 13:29 | XMS_ITS | Encounter Summary ---
Author Organization [employer] [facility] Address [address] [place] [address] Care Team Providers Care Track Template Maker Name Role Phone Unavailable Primary Care Provider Unavailabl e Encounter Details Date Type Department Care Team (Late st Contact Info) Description 10/23/2023 Lab Requisition [facility] Laboratory Services [address] [place] [address] [place] [address] [place] [address] Social History Tobacco Use Types Packs/Day Years Used Date Smoking Tobacco: Never Assessed Sex and Gender Information Value Date Recorded Sex Assigned at Not on file Legal Sex Male 9:18 AM BOTTOM BLEACHER Gender Identity Not on file Sexual Orientation Not on file documented as of this encounter Plan of Treatment Not on file documented as of this encounter Procedures Procedure Name Priority Date/Time Associated Diagnosis Comments CBC WITH DIFFERENTIAL Routine 10/23/2023 2:45 AM BOTTOM BLEACHER BASIC METABOLIC PANEL Routine 10/23/2023 2:45 AM BOTTOM BLEACHER documented in this encounter Results * (ABNORMAL) CBC WITH DIFFERENTIAL (10/23/2023 2:45 AM BOTTOM BLEACHER) WBC 12.7(H) 4.5 - 10.5 K/uL 10/23/2023 11:15 AM BOTTOM BLEACHER [facility] - [facility] RBC 4.12(L) 4.50 - 5.40 M/uL 10/23/2023 11:15 AM BOTTOM BLEACHER [facility] HEMOGLOBIN 12.2(L) 13.6 - 16.5 g/dL 10/23/2023 11:15 AM BOTTOM BLEACHER [facility]ORATORY SERVICES [facility] HEMATOCRIT 38.7(L) 40.0 - 48.0 % 10/23/2023 11:15 AM BOTTOM BLEACHER [facility] SERVICES - [facility] MCV 94.0 82.0 - 99.0 fL 10/23/2023 11:15 AM BOTTOM BLEACHER [facility] SERVICES [facility] MCH 29.7 27.8 - 34.5 pg 10/23/2023 11:15 AM BOTTOM BLEACHER [facility] SERVICES [facility] MCHC 31.6(L) 32.5 - 35.5 g/dL 10/23/2023 11:15 AM BOTTOM BLEACHER [facility] SERVICES [facility] RDW 17.3(H) 11.5 - 14.5 % 10/23/2023 11:15 AM BOTTOM BLEACHER [facility] SERVICES [facility] PLATELETS 264 160 - 420 K/uL 10/23/2023 11:15 AM BOTTOM BLEACHER [facility] SERVICES [facility] MPV 9.6 8.7 - 12.7 fL 10/23/2023 11:15 AM BOTTOM BLEACHER [facility] SERVICES [facility] NEUTROPHILS 67 % 10/23/2023 11:15 AM BOTTOM BLEACHER [facility] SERVICES [facility] LYMPHOCYTES 20 % 10/23/2023 11:15 AM BOTTOM BLEACHER [facility] SERVICES [facility] MONOCYTES 5 % 10/23/2023 11:15 AM BOTTOM BLEACHER [facility] SERVICES [facility] EOSINOPHILS 8 % 10/23/2023 11:15 AM BOTTOM BLEACHER [facility] SERVICES [facility] BASOPHILS 1 % 10/23/2023 11:15 AM BOTTOM BLEACHER [facility] SERVICES [facility] NEUTROPHIL ABSOLUTE 8.50(H) 1.90 - 7.00 K/uL 10/23/2023 11:15 AM BOTTOM BLEACHER [facility] SERVICES [facility] LYMPHOCYTE ABSOLUTE 2.50 0.70 - 4.50 K/uL 10/23/2023 11:15 AM BOTTOM BLEACHER [facility] SERVICES [facility] MONOCYTE ABSOLUTE 0.60 0.10 - 1.30 K/uL 10/23/2023 11:15 AM BOTTOM BLEACHER [facility] SERVICES [facility] EOSINOPHIL ABSOLUTE 1.00(H) 0.00 - 0.70 K/uL 10/23/2023 11:15 AM BOTTOM BLEACHER [facility] SERVICES [facility] BASOPHILS ABSOLUTE 0.10 0.00 - 0.20 K/uL 10/23/2023 11:15 AM [facility] Blood Collection / Unknown 10/23/2023 2:45 AM BOTTOM BLEACHER 10/23/2023 10:44 AM BOTTOM BLEACHER Erik Chairez MD HEMATOLOGY ORDERABLES Final Resu lt [facility] CLIA# [id number] [place] [address] * (ABNORMAL) BASIC METABOLIC PANEL (10/23/2023 2:45 AM BOTTOM BLEACHER) SODIUM 139 136 - 145 mmol/L 10/23/2023 [...] 8 - 16 mmol/L 10/23/2023 11:42 AM BOTTOM BLEACHER [facility] SERVICES [facility] Blood Collection / Unknown 10/23/2023 2:45 AM BOTTOM BLEACHER 10/23/2023 10:44 AM BOTTOM BLEACHER Erik Chairez MD CHEMISTRY ORDERABLES Final Resul t [facility]ORY [facility] CLIA# [id number] [address] [place] [address] documented in this encounter Visit Diagnoses Not on filedocumented in this encounter Additional Health Concerns Infection Onset Date Last Indicated Resolved Time 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
--- OUTSIDE RECORDS SUMMARY | 2025-06-01 13:29 | XMS_ITS | Encounter Summary ---
Author Organization [facility] Address [address] [place] [address] Care Team Providers Care Peer Tutor Name Role Phone Unavailable Primary Care Provider Unavailabl e Encounter Details Date Type Department Care Team (Late st Contact Info) Description 10/10/2023 Lab Requisition [facility] Laboratory Services [address] [place] [address] [place] [address] [place] [address] Social History Tobacco Use Types Packs/Day Years Used Date Smoking Tobacco: Never Assessed Sex and Gender Information Value Date Recorded Sex Assigned at Not on file Legal Sex Male 9:18 AM PARTS WASHER Gender Identity Not on file Sexual Orientation Not on file documented as of this encounter Plan of Treatment Not on file documented as of this encounter Procedures Procedure Name Priority Date/Time Associated Diagnosis Comments CARBAPENEM RESISTANT ORGANISM Routine 10/09/2023 9:30 PM PARTS WASHER SPUTUM CULTURE WITH GRAM STAIN Routine 10/09/2023 9:30 PM PARTS WASHER documented in this encounter Results * (ABNORMAL) CARBAPENEM RESISTANT ORGANISM (10/09/2023 9:30 PM PARTS WASHER) ORGANISM TESTED Klebsiella pneumoniae 10/12/2023 4:25 PM PARTS WASHER [facility] LABORATORY [facility] Carbapenem Resistance Gene Detected(A) Not Detected 10/12/2023 4:25 PM PARTS WASHER [facility] KPC (carbapenem-re sistance gene) by PCR DETECTED(A) Not Detected 10/12/2023 4:25 PM PARTS WASHER [facility] Sputum Collection / Unknown 10/09/2023 9:30 PM PARTS WASHER 10/10/2023 9:54 AM PARTS WASHER [facility] - 10/12/2023 4:25 PM PARTS WASHER This isolate is a carbapenem-resistant Organism (DECAL CUTTER) AND is a carbapenamase-television producer. If inpatient, place patient in Enhanced Contact Isolation. The [employer] Xpert Carba-R PCR assay detects the presence of KPC, NDM, VIM, OXA- 48, and IMP gene sequences that induce carbapenemase production in gram negative bacteria. This test was performed using an FDA approved screening methodology. Erik Chairez MD MICROBIOLOGY - GENERAL ORDERABLE S Final Result [facility]# [id number] [address] [address] * (ABNORMAL) SPUTUM CULTURE WITH GRAM STAIN (10/09/2023 9:30 PM PARTS WASHER) CULTURE KLEBSIELLA PNEUMONIAE(A) LUCINA MCG/ML 10/17/2023 10:47 AM PARTS WASHER [facility]ango [facility] Comment: This isolate is a Carbapenem-Resistant Organism AND is a carbapenemase television producer (DECAL CUTTER-CP). If inpatient, place patient in Enhanced Contact Isolation. Multiple drug resistant organism (MDRO). CULTURE Absent Normal Shahrzad LUCINA MCG/ML 10/17/2023 10:[address] [facility] datango [facility] GRAM STAIN Non diagnostic pattern LUCINA MCG/ML 10/17/2023 10:47 AM [facility] GRAM STAIN No WBC observed 10/17/2023 10:[address] [facility] datango [facility] Sputum Collection / Unknown 10/09/2023 9:30 PM PARTS WASHER 10/10/2023 9:54 AM PARTS WASHER [facility] datango [facility] - 10/17/2023 10:47 AM PARTS WASHER Results called to Kelly Suarez RN, Rosalie [...] Edited Result - Final Performing Organization Address City/State/[facility] Co de Phone Number [facility]ORY [facility]# [id number] [address] [place] [address] documented in this encounter Visit Diagnoses Not on filedocumented in this encounter Additional Health Concerns Infection Onset Date Last Indicated Resolved Time CRE-CP Comment:10/09/23 Klebsiella pneumoniae, Sputum 10/09/2023 10/09/2023 05/28/2024 2:37 PM C DT Multi Drug Resistant Organis m (MDRO) Comment:10/09/23 Klebsiella pneumoniae, CRE-CP organism, Sputum 10/09/2023 10/09/2023 DECAL CUTTER-CP Comment:10/09/23 Klebsiella pneumoniae, Sputum 10/09/2023 05/28/2024 documented as of this encounter
--- OUTSIDE RECORDS SUMMARY | 2025-06-01 13:29 | XMS_ITS | Encounter Summary ---
Author Organization [facility] Address [address] [place] [address] Care Team Providers Care Panama Hat Hydraulic Press Operator Name Role Phone Unavailable Primary Care Provider Unavailabl e Encounter Details Date Type Department Care Team (Late st Contact Info) Description 10/12/2023 Lab Requisition [facility] Laboratory Services [address] [place] [address] [place] [address] [place] [address] Social History Tobacco Use Types Packs/Day Years Used Date Smoking Tobacco: Never Assessed Sex and Gender Information Value Date Recorded Sex Assigned at Not on file Legal Sex Male 9:18 AM SCHOOL PSYCHOMETRIST Gender Identity Not on file Sexual Orientation Not on file documented as of this encounter Plan of Treatment Not on file documented as of this encounter Procedures Procedure Name Priority Date/Time Associated Diagnosis Comments MAGNESIUM LEVEL Routine 10/12/2023 4:00 AM SCHOOL PSYCHOMETRIST RENAL FUNCTION PANEL Routine 10/12/2023 4:00 AM SCHOOL PSYCHOMETRIST documented in this encounter Results * MAGNESIUM LEVEL (10/12/2023 4:00 AM SCHOOL PSYCHOMETRIST) MAGNESIUM 2.3 1.6 - 2.6 mg/dL 10/12/2023 6:02 AM SCHOOL PSYCHOMETRIST [facility] Blood Collection / Unknown 10/12/2023 4:00 AM SCHOOL PSYCHOMETRIST 10/12/2023 5:07 AM SCHOOL PSYCHOMETRIST us Erik Chairez MD CHEMISTRY ORDERABLES Final [facility]ul t [id number] [address] [place] [address] * (ABNORMAL) RENAL FUNCTION PANEL (10/12/2023 4:00 AM SCHOOL PSYCHOMETRIST) SODIUM 139 136 - 145 mmol/L 10/12/2023 6:02 AM [facility] POTASSIUM 4.2 3.4 - 5.1 mmol/L 10/12/2023 6:02 AM [facility] CHLORIDE 102 98 - 107 mmol/L 10/12/2023 6:02 AM [facility] CO2 24 22 - 29 mmol/L 10/12/2023 6:02 AM [facility] CALCIUM 9.5 8.6 - 10.4 mg/dL 10/12/2023 6:02 AM [facility] BUN 43(H) 6 - 20 mg/dL 10/12/2023 6:02 AM [facility] CREATININE 1.20(H) 0.67 - 1.17 mg/dL 10/12/2023 6:02 AM [facility] Comment:The GFR result is no t clinically significant on patients <18 or >70 years of age. GLUCOSE 94 74 - 99 mg/dL 10/12/2023 6:02 AM [facility] ALBUMIN 3.4(L) 3.5 - 5.2 g/dL 10/12/2023 6:02 AM [facility] PHOSPHORUS 4.2 2.5 - 4.5 mg/dL 10/12/2023 6:02 AM [facility] GFR 60 mL/min/1.7 3 sq meter 10/12/2023 6:02 AM [facility] Comment:eGFR calculated with 2020 CKD-EPI equation. Vegetarian diet, extremely high or low muscle mass, and may affect results. Cystatin C with Glomerular Filtration Rate is a suitable alternative for these patients. ANION GAP 13 8 - 16 mmol/L 10/12/2023 6:02 AM [facility] Blood Collection / Unknown 10/12/2023 4:00 AM SCHOOL PSYCHOMETRIST 10/12/2023 5:07 AM SCHOOL PSYCHOMETRIST Erik Chairez MD CHEMISTRY ORDERABLES Final Resul t [facility] LABORATORY [facility] CLIA# [id number] [place] [address] documented in this encounter Visit Diagnoses Not on filedocumented in this encounter Additional Health Concerns Infection Onset Date Last Indicated Resolved Time CRE-CP Comment:10/09/23 Klebsiella pneumoniae, Sputum 10/09/2023 10/09/2023 05/28/2024 2:37 PM C DT Multi Drug Resistant Organis m (MDRO) Comment:10/09/23 Klebsiella pneumoniae, CRE-CP organism, Sputum 10/09/2023 10/09/2023 SLEEPER CUTTER-CP Comment:10/09/23 Klebsiella pneumoniae, Sputum 10/09/2023 05/28/2024 documented as of this encounter
--- OUTSIDE RECORDS SUMMARY | 2025-06-01 13:29 | XMS_ITS | Clinical Summary ---
Author Organization [facility] Address [address] [place] [address] Care Team Providers Care Purchasing Clerk Name Role Phone Demond Stark MD Primary Care Provider [phone] Allergies Active Allergy Reactions Criticality Noted Date Comments Diphenhydramine Hallucinations Medium 11/27/2023 Was not able to sleep and made him more anxious Lisinopril Cough Low Reaction: Cough, Pravastatin Muscle pain Medium Reaction: Muscular Pain, Quetiapine Other (See comments) Low 06/05/2024 Hallucinations, insomnia Simvastatin Muscle pain Medium Reaction: Muscular Pain, Rahcttc-Uea-Yzp Reductase Inhibitors Muscle pain,Other (See comments) Medium 10/03/2015 Pt reports leg weakness/heavine ss when taking zocor. Medications levothyroxine (SYNTHROID) 112 mcg tablet Take 1 tablet (112 mcg total) by mouth early childhood assistant before breakfast Active aspirin 81 mg tablet [...] (COZAAR) 50 mg tabletIndications:Co ronary arteriosclerosis in [place] artery,Cardiomyopath y, unspecified type (HCC) Take 1 tablet (50 mg total) by mouth daily 90 tablet 3 03/16/20 25 026 Active Active Problems Problem Noted Date Diagnosed Date Cardiomyopathy 03/16/2025 Nonrheumatic aortic (valve) stenosis 03/16/2025 Dysfunction of right eustachian tube 08/31/2024 Assessment & Plan (10/05/2024 10:54 AM SCRIPT COORDINATOR): Avoid ear cleaning techniques Avoid water to ears Follow up in 9 months for right ear tube check, earlier with ear drainage Assessment & Plan (08/31/2024 11:40 AM SCRIPT COORDINATOR): Right myringotomy with T-tube placement Risks [...] 07/09/2024 Assessment & Plan (08/31/2024 11:39 AM SCRIPT COORDINATOR): Right myringotomy with T-tube placement Risks [...] 08/07/2017 Assessment & Plan (08/07/2017 6:01 PM SCRIPT COORDINATOR): Has had elevated LFTs and a fatty liver. Bradycardia 08/07/2017 Assessment & Plan (08/07/2017 5:58 PM SCRIPT COORDINATOR): Asymptomatic bradycardia, on low-dose metoprolol which may eventually need to be reduced or discontinued. Traumatic subdural hematoma of neuraxis 10/15/19 17 Overview (12/28/2016): Traumatic subdural hematoma without loss of consciousness, sequela Statin intolerance 10/15/2016 Overview (12/28/2016): Statin intolerance Essential hypertension 07/20/2013 Overview (12/28/2016): Hypertension Assessment & Plan (08/07/2017 5:57 PM SCRIPT COORDINATOR): Hypertension is not under good control; [...] HYPERLIPIDEMIA Assessment & Plan (08/07/2017 6:03 PM SCRIPT COORDINATOR): Has refued further attempts at statin therapy. History of coronary artery bypass surgery 2009 Overview (12/26/2016): AORTOCORONARY BYPASS Coronary arteriosclerosis in [place] artery 12/20 Overview (08/07/2017): CRNRY ATHRSCL NATVE VSSL 2009: Non STEMI and CABG x3 (HOBSON to the LAD, sequential RA to OM and D1) Assessment & Plan (08/07/2017 6:00 PM SCRIPT COORDINATOR): 2009: Non STEMI and CABG x3 [...] 03/04/2018 Assessment & Plan (08/07/2017 5:58 PM SCRIPT COORDINATOR): Patient is going to have knee surgery soon and needs preoperative clearance. Coronary artery disease appears stable. Low risk for cardiac event with proposed surgery. 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/2009 03/25/2023 Overview (12/28/2016): SUBENDO INFARCT, SUBSEQ Encounters Date Type Department Care Team Description 03/16/2025 2:30 PM CDT Office Visit [facility] Cardiology [address] [place] [phone] Mando Luna MD Persistent atrial fibrillation (HCC) (Primary Dx); Coronary arteriosclerosis in [place] artery; Chronic anticoagulation; Nonrheumatic aortic (valve) stenosis; Cardiomyopathy, unspecified type (HCC) 03/16/2025 Orders Only [facility] [address] [place] [phone] ProviderTaylor MD 03/01/2025 Telephone [facility] [address] [place] [phone] Mando Luna MD from Last 3 Months [...] on file Legal Sex Male 8:49 AM SCRIPT COORDINATOR Gender Identity Not on file Sexual Orientation Not on file Obstetrics History Last Filed Vital Signs Vital Sign Reading Time Taken Comments Blood Pressure 138/70 03/16/2025 2:40 PM CDT Pulse 88 03/16/2025 2:40 PM CDT Temperature 36.3 C (97.4 F) 09/22/2024 1:04 PM SCRIPT COORDINATOR Respiratory Rate 18 09/22/2024 1:04 PM SCRIPT COORDINATOR Oxygen Saturation 97% 03/16/2025 2:40 PM CDT [...] 09/01/2025 09/01/2024 Medical Devices Implanted Type Area Real Estate Rental Agent Device Identifier Shelf Expiration Date Model / Serial / Lot [employer] 1.32mm 4.8mm Modify Ear T Tube Ventilation Ultrasil Sterile Blue [id number] - [id number] Implanted:Qty: 1 on 09/22/2024 by Laura Oakes DO at [facility] Right: Ear [employer] 07/13/2034 [id number] / / [id number] Insurance MEDICARE MEDICARE [facility] MEDICARE SUPPLEMENT Care Teams Purchasing Clerk Relationship Specialty Start Date End Date Demond Stark MD PCP - General 07/23/11
--- OUTSIDE RECORDS SUMMARY | 2025-06-01 13:29 | XMS_ITS | Encounter Summary ---
Author Organization [facility] Address [address] [place] [address] Care Team Providers Care Falafel Cart Cook Name Role Phone Unavailable Primary Care Provider Unavailabl e Encounter Details Date Type Department Care Team (Late st Contact Info) Description 11/07/2023 Lab Requisition [facility] Laboratory Services [address] [place] [address] [place] [address] [place] [address] Social History Tobacco Use Types Packs/Day Years Used Date Smoking Tobacco: Never Assessed Sex and Gender Information Value Date Recorded Sex Assigned at Not on file Legal Sex Male 9:18 AM HOOF TRIMMER Gender Identity Not on file Sexual Orientation Not on file documented as of this encounter Plan of Treatment Not on file documented as of this encounter Procedures Procedure Name Priority Date/Time Associated Diagnosis Comments THEOPHYLLINE LEVEL Routine 11/07/2023 8: 40 AM HOOF TRIMMER documented in this encounter Results * (ABNORMAL) THEOPHYLLINE LEVEL (11/07/2023 8:40 AM HOOF TRIMMER) THEOPHYLLINE LEVEL <0.8(L) 10.0 - 20.0 ug/mL 11/07/2023 3:56 PM HOOF TRIMMER [facility] Comment:Verified by repeat a nalysis. TDM LAST DATE, TIME, AMT (TIFFANIE) Patient unable to state date. time or dose. 11/07/2023 3:56 PM HOOF TRIMMER [facility] LAST DOSE AMT, THEOPHYLLINE Other 11/07/2023 3:56 PM HOOF TRIMMER [facility] Comment:80 mg Blood 11/07/2023 8:40 AM HOOF TRIMMER 11/07/2023 10:34 AM HOOF TRIMMER Narrative [facility] - 11/07/2023 3:56 PM HOOF TRIMMER Theophylline Toxic Levels: 6 months - Adult = >20.0 ug/mL 0 - 6 months = >15.0 ug/mL Erik Chairez MD CHEMISTRY ORDERABLES Final Resul t [facility] CLIA# [id number] [address] [place] [address] [facility] CLIA# [id number] [address] [place] [address] documented in this encounter Visit Diagnoses Not on filedocumented in this encounter Additional Health Concerns Infection Onset Date Last Indicated Resolved Time CRE-CP Comment:10/09/23 Klebsiella pneumoniae, Sputum 10/09/2023 10/09/2023 05/28/2024 2:37 PM C DT Multi Drug Resistant Organis m (MDRO) Comment:10/09/23 Klebsiella pneumoniae, CRE-CP organism, Sputum 10/09/2023 10/09/2023 PROGRAMMING DIRECTOR-CP Comment:10/09/23 Klebsiella pneumoniae, Sputum 10/09/2023 05/28/2024 documented as of this encounter
--- OUTSIDE RECORDS SUMMARY | 2025-06-01 13:29 | XMS_ITS | Encounter Summary ---
Author Organization [facility] Address [address] [address] Care Team Providers Care Manager Of Operations Name Role Phone Demond Stark MD Primary Care Provider [phone] Encounter Details Date Type Department Care Team (Late Contact Info) Description 06/13/2023 Lab Requisition [facility] - DermPath Lab [address] [place] [address] Jaxon Anaya MD [address] [place] [address] Social History Tobacco Use Types Packs/Day Years Used Date Smoking Tobacco: Former Cigarettes Q uit: 09/23/1969 Smokeless Tobacco: Never Alcohol Use Standard Drinks/Week Comments Yes 0 (1 standard drink = 0.6 oz pur e alcohol) Sex and Gender Information Value Date Recorded Sex Assigned at Not on file Legal Sex Male 5:43 PM MANAGER WELLNESS Gender Identity Not on file Sexual Orientation Not on file documented as of this encounter Plan of Treatment Upcoming Encounters Date Type Department Care Team (Late st Contact Info) Description 02/04/2026 9:00 AM CDT Office Visit [facility] - GI [address] [place] [phone] Callie Mendoza DO [address] [facility] [address] [place] [phone] documented as of this encounter Procedures Procedure Name Priority Date/Time Associated Diagnosis Comments DERMATOPATHOLOGY Routine 06/12/2023 12:0 0 AM CDT documented in this encounter Results * DERMATOPATHOLOGY (06/12/2023 12:00 AM CDT) Case Report Dermatopathology Report Case: [id number] Authorizing Provider: Jaxon Anaya MD Collected: 06/12/2023 12:00 AM Ordering Location: [facility] DermPath Lab Received: 06/13/2023 01:28 [...] specimen consists of a shave biopsy measuring 16l90i0 mm. Jar 0. 3:42 PM CDT DERMATOPATHOLOGY [...] purposes. Billing Codes Specimen Charges Stain Charges 10011 1 06392 1 3 3:42 PM CDT DERMATOPATHOLOGY LABORATORY Embedded Images 3 3:42 PM CDT DERMATOPATHOLOGY LABORATORY Pathology/Cytolog y TISSUE SPECIMEN FROM SKIN / Unknown 06/12/2023 06/13/2023 1:28 PM CDT Jaxon Anaya MD LAB - PATHOLOGY/CYTOLOGY ORD ERABLES Final Result DERMATOPATHOLOGY LABORATORY [facility] - Department of Dermatology [address], [address] [phone] documented in this encounter Visit Diagnoses Not on filedocumented in this encounter Care Teams Manager Of Operations Relationship Specialty Start Date End Date Demond Stark MD [address] [place] [address] PCP - General 10/03/15 documented as of this encounter
[2025-06-01 14:51] LABS: Toxigenic C. Diff POSITIVE (NEGATIVE)
[2025-06-03 15:09] LABS: Calprotectin, Fecal 342 ug/g (0-120)
== END 2025-06-01 11:45 | disposition home or self-care (01) ==
PROVIDERS: PCP Family Medicine; Visit Provider Nurse Practitioner Family
DX: R10.9 Unspecified abdominal pain (principal); R19.7 Diarrhea, unspecified
CPT/HCPCS: 83993; 87045; 87046; 87427; 87493

== ENCOUNTER 2025-06-18 16:19 | Outpatient (CLI) | payer MEDICARE, SELFPAY ==
[2025-06-18 17:13] LABS: Anion Gap 8 mmol/L (4-12); Blood Urea Nitrogen 17 mg/dL (9-20); Calcium 9.0 mg/dL (8.4-10.2); Carbon Dioxide 27 mmol/L (22-30); Chloride 101 mmol/L (98-107); Estimated Glomerular Filt Rate 50; Glucose 104 mg/dL (65-110); Potassium 4.2 mmol/L (3.4-5.0); Sodium 136 mmol/L (137-145)
== END 2025-06-18 16:20 | disposition home or self-care (01) ==
PROVIDERS: PCP Family Medicine; Visit Provider Physician Assistant Medical
DX: N28.9 Disorder of kidney and ureter, unspecified (principal)
CPT/HCPCS: 36415; 80048

== ENCOUNTER 2025-07-29 08:39 | Outpatient (CLI) | payer MEDICARE, SELFPAY ==
--- OUTSIDE RECORDS SUMMARY | 2007-01-14 05:28 | XMS_ITS | Continuity of Care Document ---
Author Organization [facility] Address [address] [place] [address] [place] [address] Phone Care Team Providers Care Check Writer Name Role Phone Karsten Mason MD Unavailable Unavailable Procedures Procedure Date Office/outpatient Visit, [facility] Advance Directives Directive Yes / No Effective Date File Name No Information Encounters Encounter Description Practice Location Reason(s) For Visit Diagnoses Date Provider Providers Copied on Encounter Office/outpat ient Visit, [facility], [id number] [place] [address] [address], [place], [place], [id number], [place] tel:[phone] SEC [facility] No Information [address] Isabella Shelley. [address] [facility] [place], [place], [id number], [place]. tel:[phone] Family History Family Member Type Diagnosis Age At Onset No Information Payers Payer name Insurance type Covered democrat ID Authoriza tion(s) Medicare [facility] [id number] Social History Type Description Quantity Date Captured Comments Sex Male Smoking Status No Information Chief Complaint And Reason For Visit No Information Reason For Referral Reason For Referral No Information History Of Present Illness Encounter Date Complaint History Of Prese nt Illness No Information Functional Status Date Functional Assessmen t No Information Instructions Date Instruction Additional Infor mation No Information Assessments Type Assessment Date No Information Patient Care Teams Name Effective Dates (start - stop) Status Members No Information
--- NOTE | ~2025-07-29 | XR_ITS ---
EXAMINATION: XR small bowel follow through DATE: 07/29/2025 16:44 INDICATION: Abdominal pain TECHNIQUE: Rn Angiography radiograph(s) of the abdomen was/were obtained. Oral contrast was administered, and sequential radiographs of the abdomen were obtained until oral contrast was noted to be in the proximal colon. Spot fluoroscopic images of the small bowel were obtained. A total of 5 fluoroscopic images and 11 overhead radiographs were obtained. Fluoroscopy exposure time was 0.4 minutes. Total DAP was 148.267 Gycm^2. COMPARISON: CT dated 04/18/2025 and KUB dated 04/19/2025 FINDINGS: Rn Angiography image demonstrates a percutaneous gastrostomy tube bulb in the body the stomach. Left lower quadrant ostomy. Multiple surgical clips in the pelvis. Median sternotomy wires and mediastinal surgical clips are seen, likely from prior coronary artery bypass grafting. Elevation the left hemidiaphragm. No pleural effusions. Transit time from the stomach to proximal colon was approximately 3 hours. There is normal caliber and mucosal fold pattern throughout the small bowel. Terminal ileum is normal. IMPRESSION: 1. Mildly delayed passage of contrast through the diffusely normal caliber and appearing small bowel consistent with an ileus. Reviewed, dictated and finalized at location A. CAL REVIEW SPECIALIST
--- OUTSIDE RECORDS SUMMARY | 2025-07-29 17:23 | XMS_ITS | Encounter Summary ---
Author Organization [facility] Address [address] [place] [address] Care Team Providers Care Paralegal Secretary Name Role Phone Unavailable Primary Care Provider Unavailabl e Encounter Details Date Type Department Care Team (Late st Contact Info) Description 10/10/[address] [facility] Laboratory Services [address] [place] [address] [place] [address] [place] [address] Social History Tobacco Use Types Packs/Day Years Used Date Smoking Tobacco: Never Assessed Sex and Gender Information Value Date Recorded Sex Assigned at Not on file Legal Sex Male 9:18 AM ROOF CEMENT AND PAINT MAKER Gender Identity Not on file Sexual Orientation Not on file documented as of this encounter Plan of Treatment Not on file documented as of this encounter Procedures Procedure Name Priority Date/Time Associated Diagnosis Comments CBC WITH DIFFERENTIAL Routine 10/10/2023 3:30 AM ROOF CEMENT AND PAINT MAKER PTT Routine 10/10/2023 3:30 AM ROOF CEMENT AND PAINT MAKER PROTIME-INR Routine 10/10/2023 3:30 AM ROOF CEMENT AND PAINT MAKER PREALBUMIN Routine 10/10/2023 3:30 AM ROOF CEMENT AND PAINT MAKER COMPREHENSIVE METABOLIC PANEL Routine 10/10/2023 3:30 AM ROOF CEMENT AND PAINT MAKER documented in this encounter Results * PTT (10/10/2023 3:30 AM ROOF CEMENT AND PAINT MAKER) PTT 23.4 23.1 - 37.1 seconds 10/10/2023 10:14 AM ROOF CEMENT AND PAINT MAKER [facility] SERVICES [facility] Blood Collection / Unknown 10/10/2023 3:30 AM ROOF CEMENT AND PAINT MAKER 10/10/2023 9:51 AM ROOF CEMENT AND PAINT MAKER Erik Chairez MD HEMATOLOGY ORDERABLES Final Resu lt [facility] CLIA# [id number] [place] [address] * (ABNORMAL) PROTIME-INR (10/10/2023 3:30 AM ROOF CEMENT AND PAINT MAKER) PROTIME 15.0(H) 11.5 - 14.7 Seconds 10/10/2023 10:14 AM ROOF CEMENT AND PAINT MAKER [facility] INR 1.2(H) 0.9 - 1.1 10/10/2023 10:14 AM ROOF CEMENT AND PAINT MAKER [facility] Blood Collection / Unknown 10/10/2023 3:30 AM ROOF CEMENT AND PAINT MAKER 10/10/2023 9:51 AM ROOF CEMENT AND PAINT MAKER Erik Chairez MD HEMATOLOGY ORDERABLES Final Resu lt [facility] CLIA# [id number] [id number] [place] [address] * PREALBUMIN (10/10/2023 3:30 AM ROOF CEMENT AND PAINT MAKER) PREALBUMIN 23 20 - 40 mg/dL 10/10/2023 2:24 PM ROOF CEMENT AND PAINT MAKER [facility] LABORATORY [facility] Blood Collection / Unknown 10/10/2023 3:30 AM ROOF CEMENT AND PAINT MAKER 10/10/2023 9:51 AM ROOF CEMENT AND PAINT MAKER Erik Chairez MD CHEMISTRY ORDERABLES Final Resul t [facility] CLIA# [id number] [address] [place] [address] * (ABNORMAL) CBC WITH DIFFERENTIAL (10/10/2023 3:30 AM ROOF CEMENT AND PAINT MAKER) [facility] WBC 10.1 4.5 - 10.5 K/uL 10/10/2023 11:06 AM [facility] RBC 3.85(L) 4.50 - 5.40 M/uL 10/10/2023 11:06 AM [facility] HEMOGLOBIN 11.6(L) 13.6 - 16.5 g/dL 10/10/2023 11:06 AM [facility] HEMATOCRIT 36.6(L) 40.0 - 48.0 % 10/10/2023 11:06 AM [facility] MCV 95.2 82.0 - 99.0 fL 10/10/2023 11:06 AM [facility] MCH 30.1 27.8 - 34.5 pg 10/10/2023 11:06 AM [facility] MCHC 31.6(L) 32.5 - 35.5 g/dL 10/10/2023 11:06 AM [facility] RDW 19.2(H) 11.5 - 14.5 % 10/10/2023 11:06 AM [facility] PLATELETS 250 160 - 420 K/uL 10/10/2023 11:06 AM [facility] MPV 9.8 8.7 - 12.7 fL 10/10/2023 11:06 AM [facility] NEUTROPHILS 72 % 10/10/2023 11:06 AM [facility] LYMPHOCYTES 15 % 10/10/2023 11:06 AM ROOF CEMENT AND PAINT MAKER [facility] MONOCYTES 7 % 10/10/2023 11:06 AM ROOF CEMENT AND PAINT MAKER [facility] EOSINOPHILS 5 % 10/10/2023 11:06 AM ROOF CEMENT AND PAINT MAKER [facility] BASOPHILS 0 % 10/10/2023 11:06 AM [facility] NEUTROPHIL ABSOLUTE 7.20(H) 1.90 - 7.00 K/uL 10/10/2023 11:06 AM [facility] LYMPHOCYTE ABSOLUTE 1.50 0.70 - 4.50 K/uL 10/10/2023 11:06 AM ROOF CEMENT AND PAINT MAKER [facility] MONOCYTE ABSOLUTE 0.70 0.10 - 1.30 K/uL 10/10/2023 11:06 AM ROOF CEMENT AND PAINT MAKER [facility] LABORATORY [facility] EOSINOPHIL ABSOLUTE 0.50 0.00 - 0.70 K/uL 10/10/2023 11:06 AM ROOF CEMENT AND PAINT MAKER [facility] BASOPHILS ABSOLUTE 0.00 0.00 - 0.20 K/uL 10/10/2023 11:06 AM ROOF CEMENT AND PAINT MAKER [facility] Blood Collection / Unknown 10/10/2023 3:30 AM ROOF CEMENT AND PAINT MAKER 10/10/2023 9:51 AM ROOF CEMENT AND PAINT MAKER us Erik Chairez MD HEMATOLOGY ORDERABLES Final Resu lt [facility] CLIA# [id number] [address] [place] [address] * (ABNORMAL) COMPREHENSIVE METABOLIC PANEL (10/10/2023 3:30 AM ROOF CEMENT AND PAINT MAKER) SODIUM 142 136 - 145 mmol/L 10/10/2023 10:49 AM [facility] POTASSIUM 4.1 3.4 - 5.1 mmol/L 10/10/2023 10:49 AM [facility] CHLORIDE 104 98 - 107 mmol/L 10/10/2023 10:49 AM [facility] CO2 23 22 - 29 mmol/L 10/10/2023 10:49 AM [facility] CALCIUM 9.4 8.6 - 10.4 mg/dL 10/10/2023 10:49 AM [facility] BUN 34(H) 6 - 20 mg/dL 10/10/2023 10:49 AM [facility] CREATININE 1.24(H) 0.67 - 1.17 mg/dL 10/10/2023 10:49 AM [facility] Comment:The GFR result is no [...] Collection / Unknown 10/10/2023 3:30 AM ROOF CEMENT AND PAINT MAKER 10/10/2023 9:51 AM ROOF CEMENT AND PAINT MAKER us Erik Chairez MD CHEMISTRY ORDERABLES Final Resul t [facility] CLIA# [id number] [address] [place] [address] documented in this encounter Visit Diagnoses Not on filedocumented in this encounter Additional Health Concerns Infection Onset Date Last Indicated Resolved Time 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
--- OUTSIDE RECORDS SUMMARY | 2025-07-29 17:23 | XMS_ITS | Encounter Summary ---
Author Organization [facility] Address [address] [place] [address] Care Team Providers Care Special Population Paraprofessional Name Role Phone Unavailable Primary Care Provider Unavailabl e Encounter Details Date Type Department Care Team (Late st Contact Info) Description 11/04/2023 Lab Requisition [facility] Laboratory Services [address] [address] [place] [address] [place] [address] Social History Tobacco Use Types Packs/Day Years Used Date Smoking Tobacco: Never Assessed Sex and Gender Information Value Date Recorded Sex Assigned at Not on file Legal Sex Male 9:18 AM CARDIAC TECHNICIAN Gender Identity Not on file Sexual Orientation Not on file documented as of this encounter Plan of Treatment Not on file documented as of this encounter Procedures Procedure Name Priority Date/Time Associated Diagnosis Comments CBC WITH DIFFERENTIAL Routine 11/04/2023 3:45 AM CARDIAC TECHNICIAN BASIC METABOLIC PANEL Routine 11/04/2023 3:45 AM CARDIAC TECHNICIAN documented in this encounter Results * (ABNORMAL) CBC WITH DIFFERENTIAL (11/04/2023 3:45 AM CARDIAC TECHNICIAN) WBC 12.2(H) 4.5 - 10.5 K/uL 11/04/2023 8:52 AM CARDIAC TECHNICIAN [facility] - [facility] RBC 4.11(L) 4.50 - 5.40 M/uL 11/04/2023 8:52 AM CARDIAC TECHNICIAN [facility] HEMOGLOBIN 11.7(L) 13.6 - 16.5 g/dL 11/04/2023 8:52 AM CARDIAC TECHNICIAN [facility] HEMATOCRIT 37.9(L) 40.0 - 48.0 % 11/04/2023 8:52 AM CARDIAC TECHNICIAN [facility]ORAT[facility] SERVICES [facility] MCV 92.2 82.0 - 99.0 fL 11/04/2023 8:52 AM CARDIAC TECHNICIAN [facility] MCH 28.5 27.8 - 34.5 pg 11/04/2023 8:52 AM CARDIAC TECHNICIAN [facility] SERVICES [facility] MCHC 30.9(L) 32.5 - 35.5 g/dL 11/04/2023 8:52 AM CARDIAC TECHNICIAN [facility] SERVICES [facility] RDW 17.0(H) 11.5 - 14.5 % 11/04/2023 8:52 AM CARDIAC TECHNICIAN [facility] SERVICES [facility] PLATELETS 272 160 - 420 K/uL 11/04/2023 8:52 AM CARDIAC TECHNICIAN [facility] SERVICES [facility] MPV 10.0 8.7 - 12.7 fL 11/04/2023 8:52 AM CARDIAC TECHNICIAN [facility] SERVICES [facility] NEUTROPHILS 45 % 11/04/2023 8:52 AM CARDIAC TECHNICIAN [facility] SERVICES [facility] LYMPHOCYTES 38 % 11/04/2023 8:52 AM CARDIAC TECHNICIAN [facility] MONOCYTES 7 % 11/04/2023 8:52 AM CARDIAC TECHNICIAN [facility] SERVICES [facility] EOSINOPHILS 11 % 11/04/2023 8:52 AM CARDIAC TECHNICIAN [facility] BASOPHILS 1 % 11/04/2023 8:52 AM CARDIAC TECHNICIAN [facility] NEUTROPHIL ABSOLUTE 5.50 1.90 - 7.00 K/uL 11/04/2023 8:52 AM CARDIAC TECHNICIAN [facility] SERVICES [facility] LYMPHOCYTE ABSOLUTE 4.60(H) 0.70 - 4.50 K/uL 11/04/2023 8:52 AM CARDIAC TECHNICIAN [facility] SERVICES [facility] MONOCYTE ABSOLUTE 0.80 0.10 - 1.30 K/uL 11/04/2023 8:52 AM CARDIAC TECHNICIAN [facility] SERVICES [facility] EOSINOPHIL ABSOLUTE 1.30(H) 0.00 - 0.70 K/uL 11/04/2023 8:52 AM CARDIAC TECHNICIAN [facility] SERVICES [facility] BASOPHILS ABSOLUTE 0.10 0.00 - 0.20 K/uL 11/04/2023 8:52 AM [facility] [employer] [facility] Blood 11/04/2023 3:45 AM CARDIAC TECHNICIAN 11/04/2023 8:24 AM CARDIAC TECHNICIAN Erik Chairez MD HEMATOLOGY ORDERABLES Final Resu lt [facility] CLIA# [id number] [place] [address] * (ABNORMAL) BASIC METABOLIC PANEL (11/04/2023 3:45 AM CARDIAC TECHNICIAN) SODIUM 144 136 - 145 mmol/L 11/04/2023 [...] 8 - 16 mmol/L 11/04/2023 9:49 AM CARDIAC TECHNICIAN [facility] Blood 11/04/2023 3:45 AM CARDIAC TECHNICIAN 11/04/2023 8:24 AM CARDIAC TECHNICIAN Erik Chairez MD CHEMISTRY ORDERABLES Final Resul t [facility] CLIA# [id number] [address] [place] [address] documented in this encounter Visit Diagnoses Not on filedocumented in this encounter Additional Health Concerns Infection Onset Date Last Indicated Resolved Time 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
--- OUTSIDE RECORDS SUMMARY | 2025-07-29 17:23 | XMS_ITS | Encounter Summary ---
Author Organization [facility] Address [address] [place] [address] Care Team Providers Care Chief Talent Officer Name Role Phone Unavailable Primary Care Provider Unavailabl e Encounter Details Date Type Department Care Team (Late st Contact Info) Description 10/23/2023 Lab Requisition [facility] Services [address] [place] [address] [place] [id number] [place] [address] Social History Tobacco Use Types Packs/Day Years Used Date Smoking Tobacco: Never Assessed Sex and Gender Information Value Date Recorded Sex Assigned at Not on file Legal Sex Male 9:18 AM FAX MACHINE OPERATOR Gender Identity Not on file Sexual Orientation Not on file documented as of this encounter Plan of Treatment Not on file documented as of this encounter Procedures Procedure Name Priority Date/Time Associated Diagnosis Comments CBC WITH DIFFERENTIAL Routine 10/23/2023 2:45 AM FAX MACHINE OPERATOR BASIC METABOLIC PANEL Routine 10/23/2023 2:45 AM FAX MACHINE OPERATOR documented in this encounter Results * (ABNORMAL) CBC WITH DIFFERENTIAL (10/23/2023 2:45 AM FAX MACHINE OPERATOR) WBC 12.7(H) 4.5 - 10.5 K/uL 10/23/2023 11:15 AM FAX MACHINE OPERATOR [facility] RBC 4.12(L) 4.50 - 5.40 M/uL 10/23/2023 11:15 AM FAX MACHINE OPERATOR [facility] HEMOGLOBIN 12.2(L) 13.6 - 16.5 g/dL 10/23/2023 11:15 AM FAX MACHINE OPERATOR [facility] HEMATOCRIT 38.7(L) 40.0 - 48.0 % 10/23/2023 11:15 AM FAX MACHINE OPERATOR [facility] MCV 94.0 82.0 - 99.0 fL 10/23/2023 11:15 AM FAX MACHINE OPERATOR [facility] MCH 29.7 27.8 - 34.5 pg 10/23/2023 11:15 AM FAX MACHINE OPERATOR [facility] MCHC 31.6(L) 32.5 - 35.5 g/dL 10/23/2023 11:15 AM FAX MACHINE OPERATOR [facility] RDW 17.3(H) 11.5 - 14.5 % 10/23/2023 11:15 AM FAX MACHINE OPERATOR [facility] PLATELETS 264 160 - 420 K/uL 10/23/2023 11:15 AM FAX MACHINE OPERATOR [facility] MPV 9.6 8.7 - 12.7 fL 10/23/2023 11:15 AM FAX MACHINE OPERATOR [facility] NEUTROPHILS 67 % 10/23/2023 11:15 AM FAX MACHINE OPERATOR [facility] LYMPHOCYTES 20 % 10/23/2023 11:15 AM FAX MACHINE OPERATOR [facility] MONOCYTES 5 % 10/23/2023 11:15 AM FAX MACHINE OPERATOR [facility] EOSINOPHILS 8 % 10/23/2023 11:15 AM FAX MACHINE OPERATOR [facility] BASOPHILS 1 % 10/23/2023 11:15 AM FAX MACHINE OPERATOR [facility] NEUTROPHIL ABSOLUTE 8.50(H) 1.90 - 7.00 K/uL 10/23/2023 11:15 AM FAX MACHINE OPERATOR [facility] LYMPHOCYTE ABSOLUTE 2.50 0.70 - 4.50 K/uL 10/23/2023 11:15 AM FAX MACHINE OPERATOR [facility] MONOCYTE ABSOLUTE 0.60 0.10 - 1.30 K/uL 10/23/2023 11:15 AM FAX MACHINE OPERATOR [facility] EOSINOPHIL ABSOLUTE 1.00(H) 0.00 - 0.70 K/uL 10/23/2023 11:15 AM FAX MACHINE OPERATOR [facility] BASOPHILS ABSOLUTE 0.10 0.00 - 0.20 K/uL 10/23/2023 11:15 AM [facility] Blood Collection / Unknown 10/23/2023 2:45 AM FAX MACHINE OPERATOR 10/23/2023 10:44 AM FAX MACHINE OPERATOR Erik Chairez MD HEMATOLOGY ORDERABLES Final Resu lt [facility] CLIA# [id number] [place] [address] * (ABNORMAL) BASIC METABOLIC PANEL (10/23/2023 2:45 AM FAX MACHINE OPERATOR) SODIUM 139 136 - 145 [...] 8 - 16 mmol/L 10/23/2023 11:42 AM FAX MACHINE OPERATOR [facility] Blood Collection / Unknown 10/23/2023 2:45 AM FAX MACHINE OPERATOR 10/23/2023 10:44 AM FAX MACHINE OPERATOR Erik Chairez MD CHEMISTRY ORDERABLES Final Resul t [facility] CLIA# [id number] [place] [address] documented in this encounter Visit Diagnoses Not on filedocumented in this encounter Additional Health Concerns Infection Onset Date Last Indicated Resolved Time 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
--- OUTSIDE RECORDS SUMMARY | 2025-07-29 17:23 | XMS_ITS | Encounter Summary ---
Author Organization [facility] Address [address] [place] [address] Care Team Providers Care Sewer Pipe Layer Helper Name Role Phone Unavailable Primary Care Provider Unavailabl e Encounter Details Date Type Department Care Team (Late st Contact Info) Description 10/14/2023 Lab Requisition [facility] Laboratory Services [address] [place] [address] [place] [address] [place] [address] Social History Tobacco Use Types Packs/Day Years Used Date Smoking Tobacco: Never Assessed Sex and Gender Information Value Date Recorded Sex Assigned at Not on file Legal Sex Male 9:18 AM WARBLE SAW OPERATOR Gender Identity Not on file Sexual Orientation Not on file documented as of this encounter Plan of Treatment Not on file documented as of this encounter Procedures Procedure Name Priority Date/Time Associated Diagnosis Comments CBC WITH DIFFERENTIAL Routine 10/14/2023 2:35 AM WARBLE SAW OPERATOR TRIGLYCERIDE Routine 10/14/2023 2:35 AM WARBLE SAW OPERATOR PHOSPHORUS Routine 10/14/2023 2:35 AM WARBLE SAW OPERATOR MAGNESIUM LEVEL Routine 10/14/2023 2:35 AM WARBLE SAW OPERATOR COMPREHENSIVE METABOLIC PANEL Routine 10/14/2023 2:35 AM WARBLE SAW OPERATOR documented in this encounter Results * (ABNORMAL) TRIGLYCERIDE (10/14/2023 2:35 AM WARBLE SAW OPERATOR) TRIGLYCERIDE 161(H) <150 mg/dL 10/14/2023 8:26 AM WARBLE SAW OPERATOR [facility] Blood Collection / Unknown 10/14/2023 2:35 AM WARBLE SAW OPERATOR 10/14/2023 7:22 AM WARBLE SAW OPERATOR Narrative [facility] - 10/14/2023 8:26 AM WARBLE SAW OPERATOR TRIGLYCERIDES mg/dL Normal < 150 Borderline High 150 - 199 High 200 - 499 Very High >= 500 Based on AHA/NCEP Guidelines. us Erik Chairez MD CHEMISTRY ORDERABLES Final Resul t Performing Organization Address City/[facility]/ZIP Co de Phone Number [facility] CLIA# [id number] [place] [address] * PHOSPHORUS (10/14/2023 2:35 AM WARBLE SAW OPERATOR) PHOSPHORUS 3.4 2.5 - 4.5 mg/dL 10/14/2023 8:26 AM WARBLE SAW OPERATOR [facility] Blood Collection / Unknown 10/14/2023 2:35 AM WARBLE SAW OPERATOR 10/14/2023 7:22 AM WARBLE SAW OPERATOR us Erik Chairez MD CHEMISTRY ORDERABLES Final Resul t Performing Organization Address City/[facility] Co de Phone Number [facility] [id number] [place] [address] * MAGNESIUM LEVEL (10/14/2023 2:35 AM WARBLE SAW OPERATOR) MAGNESIUM 2.5 1.6 - 2.6 mg/dL 10/14/2023 8:26 AM WARBLE SAW OPERATOR [facility] [employer] [facility] Blood Collection / Unknown 10/14/2023 2:35 AM WARBLE SAW OPERATOR 10/14/2023 7:22 AM WARBLE SAW OPERATOR us Erik Chairez MD CHEMISTRY ORDERABLES Final Resul t Performing Organization Address City/[facility]/ZIP Co de Phone Number [facility] [id number] [place] [address] * (ABNORMAL) CBC WITH DIFFERENTIAL (10/14/2023 2:35 AM WARBLE SAW OPERATOR) [facility] WBC 9.2 4.5 - 10.5 K/uL 10/14/2023 8:02 AM [facility] RBC 3.58(L) 4.50 - 5.40 M/uL 10/14/2023 8:02 AM [facility] HEMOGLOBIN 11.0(L) 13.6 - 16.5 g/dL 10/14/2023 8:02 AM [facility] HEMATOCRIT 33.5(L) 40.0 - 48.0 % 10/14/2023 8:02 AM [facility] MCV 93.6 82.0 - 99.0 fL 10/14/2023 8:02 AM [facility] MCH 30.6 27.8 - 34.5 pg 10/14/2023 8:02 AM [facility] [employer] [facility] MCHC 32.7 32.5 - 35.5 g/dL 10/14/2023 8:02 AM [facility] [employer] [facility] RDW 17.7(H) 11.5 - 14.5 % 10/14/2023 8:02 AM [facility] PLATELETS 214 160 - 420 K/uL 10/14/2023 8:02 AM [facility] [employer] [facility] MPV 9.2 8.7 - 12.7 fL 10/14/2023 8:02 AM [facility] [employer] [facility] NEUTROPHILS 58 % 10/14/2023 8:02 AM [facility] LYMPHOCYTES 24 % 10/14/2023 8:02 AM [facility] MONOCYTES 8 % 10/14/2023 8:02 AM WARBLE SAW OPERATOR [facility] EOSINOPHILS 9 % 10/14/2023 8:02 AM [facility] BASOPHILS 0 % 10/14/2023 8:02 AM [facility] NEUTROPHIL ABSOLUTE 5.40 1.90 - 7.00 K/uL 10/14/2023 8:02 AM [facility] [employer] [facility] LYMPHOCYTE ABSOLUTE 2.20 0.70 - 4.50 K/uL 10/14/2023 8:02 AM [facility] MONOCYTE ABSOLUTE 0.70 0.10 - 1.30 K/uL 10/14/2023 8:02 AM [facility] EOSINOPHIL ABSOLUTE 0.90(H) 0.00 - 0.70 K/uL 10/14/2023 8:02 AM [facility] BASOPHILS ABSOLUTE 0.00 0.00 - 0.20 K/uL 10/14/2023 8:02 AM [facility] Blood Collection / Unknown 10/14/2023 2:35 AM WARBLE SAW OPERATOR 10/14/2023 7:22 AM WARBLE SAW OPERATOR Erik Chairez MD HEMATOLOGY ORDERABLES Final Resu lt [facility] CLIA# [id number] [place] [address] * (ABNORMAL) COMPREHENSIVE METABOLIC PANEL (10/14/2023 2:35 AM WARBLE SAW OPERATOR) SODIUM 135(L) 136 - 145 mmol/L 10/14/2023 8:26 AM [facility] POTASSIUM 4.0 3.4 - 5.1 mmol/L 10/14/2023 8:26 AM [facility] CHLORIDE 97(L) 98 - 107 mmol/L 10/14/2023 8:26 AM [facility] CO2 24 22 - 29 mmol/L 10/14/2023 8:26 AM [facility] CALCIUM 9.5 8.6 - 10.4 mg/dL 10/14/2023 8:26 AM [facility] BUN 36(H) 6 - 20 mg/dL 10/14/2023 8:26 AM [facility] CREATININE 1.18(H) 0.67 - 1.17 mg/dL 10/14/2023 8:26 AM [facility] [employer] [facility] Comment:The GFR result is no t clinically significant on patients <18 or >70 years of age. GLUCOSE 84 74 - 99 mg/dL 10/14/2023 8:26 AM [facility] TOTAL PROTEIN 7.4 6.3 - 8.7 g/dL 10/14/2023 8:26 AM [facility] ALBUMIN 3.6 3.5 - 5.2 g/dL 10/14/2023 8:26 AM [facility] BILIRUBIN TOTAL 0.6 0.2 - 1.1 mg/dL 10/14/2023 8:26 AM [facility] ALKALINE PHOSPHATASE 99 40 - 150 U/L 10/14/2023 8:26 AM [facility] AST 22 0 - 41 U/L 10/14/2023 8:26 AM [facility] ALT 16 0 - 41 U/L 10/14/2023 8:26 AM [facility] GFR >60 mL/min/1.7 3 sq meter 10/14/2023 8:26 AM [facility] Comment:eGFR calculated with 2020 CKD-EPI equation. Vegetarian diet, extremely high or low muscle mass, and may affect results. Cystatin C with Glomerular Filtration Rate is a suitable alternative for these patients. 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
--- OUTSIDE RECORDS SUMMARY | 2025-07-29 17:23 | XMS_ITS | Encounter Summary ---
Author Organization [facility] Healthcare Address [address] [place] [address] Care Team Providers Care [employer] Senior Officer Name Role Phone Demond Stark MD Primary Care Provider [phone] Encounter Details Date Type Department Care Team (Late st Contact Info) Description 11/06/2024 Orders Only [facility] Health Information Management [address] [place] [address] Scanning, Provider Social History Tobacco Use Types [...] on file Legal Sex Male 8:49 AM R AND D LAB TECHNICIAN Gender [...] filedocumented in this encounter Care Teams [employer] Senior [employer] Relationship Specialty Start Date End Date Demond Stark MD PCP - General 07/23/11 documented as of this encounter
--- OUTSIDE RECORDS SUMMARY | 2025-07-29 17:23 | XMS_ITS | Encounter Summary ---
Author Organization [facility] Address [address] [place] [address] Care Team Providers Care Bow Making Machine Operator Name Role Phone Unavailable Primary Care Provider Unavailabl e Encounter Details Date Type Department Care Team (Late st Contact Info) Description 10/17/2023 Lab Requisition [facility] Laboratory Services [address] [place] [address] [place] [address] [place] [address] Social History Tobacco Use Types Packs/Day Years Used Date Smoking Tobacco: Never Assessed Sex and Gender Information Value Date Recorded Sex Assigned at Not on file Legal Sex Male 9:18 AM SHIP LOADER Gender Identity Not on file Sexual Orientation Not on file documented as of this encounter Plan of Treatment Not on file documented as of this encounter Procedures Procedure Name Priority Date/Time Associated Diagnosis Comments CBC WITH DIFFERENTIAL Routine 10/17/2023 2:15 AM SHIP LOADER MAGNESIUM LEVEL Routine 10/17/2023 2:15 AM SHIP LOADER RENAL FUNCTION PANEL Routine 10/17/2023 2:15 AM SHIP LOADER documented in this encounter Results * MAGNESIUM LEVEL (10/17/2023 2:15 AM SHIP LOADER) MAGNESIUM 2.3 1.6 - 2.6 mg/dL 10/17/2023 9:56 AM SHIP LOADER [facility] Blood Collection / Unknown 10/17/2023 2:15 AM SHIP LOADER 10/17/2023 9:00 AM SHIP LOADER Erik Chairez MD CHEMISTRY ORDERABLES Final Resul t [facility] CLIA# [id number] [place] [address] * (ABNORMAL) CBC WITH DIFFERENTIAL (10/17/2023 2:15 AM SHIP LOADER) WBC 6.7 4.5 - 10.5 K/uL 10/17/2023 9:34 AM SHIP LOADER [facility] RBC 3.73(L) 4.50 - 5.40 M/uL 10/17/2023 9:34 AM SHIP LOADER [facility] HEMOGLOBIN 11.1(L) 13.6 - 16.5 g/dL 10/17/2023 9:34 AM SHIP LOADER [facility] HEMATOCRIT 35.0(L) 40.0 - 48.0 % 10/17/2023 9:34 AM SHIP LOADER [facility] MCV 93.8 82.0 - 99.0 fL 10/17/2023 9:34 AM SHIP LOADER [facility] MCH 29.8 27.8 - 34.5 pg 10/17/2023 9:34 AM SHIP LOADER [facility] MCHC 31.8(L) 32.5 - 35.5 g/dL 10/17/2023 9:34 AM SHIP LOADER [facility] RDW 17.4(H) 11.5 - 14.5 % 10/17/2023 9:34 AM SHIP LOADER [facility] PLATELETS 214 160 - 420 K/uL 10/17/2023 9:34 AM SHIP LOADER [facility] MPV 9.5 8.7 - 12.7 fL 10/17/2023 9:34 AM SHIP LOADER [facility] NEUTROPHILS 50 % 10/17/2023 9:34 AM SHIP LOADER [facility] LYMPHOCYTES 28 % 10/17/2023 9:34 AM SHIP LOADER [facility] MONOCYTES 8 % 10/17/2023 9:34 AM SHIP LOADER [facility] EOSINOPHILS 13 % 10/17/2023 9:34 AM SHIP LOADER [facility] BASOPHILS 0 % 10/17/2023 9:34 AM SHIP LOADER [facility] NEUTROPHIL ABSOLUTE 3.40 1.90 - 7.00 K/uL 10/17/2023 9:34 AM SHIP LOADER [facility] LYMPHOCYTE ABSOLUTE 1.90 0.70 - 4.50 K/uL 10/17/2023 9:34 AM SHIP LOADER [facility] MONOCYTE ABSOLUTE 0.50 0.10 - 1.30 K/uL 10/17/2023 9:34 AM SHIP LOADER [facility] EOSINOPHIL ABSOLUTE 0.90(H) 0.00 - 0.70 K/uL 10/17/2023 9:34 AM SHIP LOADER [facility] BASOPHILS ABSOLUTE 0.00 0.00 - 0.20 K/uL 10/17/2023 9:34 AM SHIP LOADER [facility] Blood Collection / Unknown 10/17/2023 2:15 AM SHIP LOADER 10/17/2023 9:00 AM SHIP LOADER us Erik Chairez MD HEMATOLOGY ORDERABLES Final Resu lt [facility] CLIA# [id number] [place] [address] * (ABNORMAL) RENAL FUNCTION PANEL (10/17/2023 2:15 AM SHIP LOADER) SODIUM 137 136 - 145 mmol/L 10/17/2023 9:56 AM [facility] [employer] [facility] POTASSIUM 4.0 3.4 - 5.1 mmol/L 10/17/2023 9:56 AM [facility] CHLORIDE 99 98 - 107 mmol/L 10/17/2023 9:56 AM [facility] [employer] [facility] CO2 23 22 - 29 mmol/L 10/17/2023 9:56 AM [facility] [employer] [facility] CALCIUM 9.2 8.6 - 10.4 mg/dL 10/17/2023 9:56 AM [facility] [employer] [facility] BUN 42(H) 6 - 20 mg/dL 10/17/2023 9:56 AM [facility] CREATININE 1.00 0.67 - 1.17 mg/dL 10/17/2023 9:56 AM [facility] Comment:The GFR result is no t clinically significant on patients <18 or >70 years of age. GLUCOSE 72(L) 74 - 99 mg/dL 10/17/2023 9:56 AM [facility] ALBUMIN 3.2(L) 3.5 - 5.2 g/dL 10/17/2023 9:56 AM [facility] PHOSPHORUS 2.9 2.5 - 4.5 mg/dL 10/17/2023 9:56 AM [facility] GFR >60 mL/min/1.7 3 sq meter 10/17/2023 9:56 AM [facility] Comment:eGFR calculated with 2020 CKD-EPI equation. Vegetarian diet, extremely high or low muscle mass, and may affect results. Cystatin C with Glomerular Filtration Rate is a suitable alternative for these patients. 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
--- OUTSIDE RECORDS SUMMARY | 2025-07-29 17:23 | XMS_ITS | Encounter Summary ---
Author Organization [facility] Address [address] [place] [address] Care Team Providers Care Beef Cattle Grazier Name Role Phone Unavailable Primary Care Provider Unavailabl e Encounter Details Date Type Department Care Team (Late st Contact Info) Description 11/10/2023 Lab Requisition [facility] Laboratory Services [address] [place] [address] [place] [id number] [place] [address] Social History Tobacco Use Types Packs/Day Years Used Date Smoking Tobacco: Never Assessed Sex and Gender Information Value Date Recorded Sex Assigned at Not on file Legal Sex Male 9:18 AM INSTITUTIONAL COOK Gender Identity Not on file Sexual Orientation Not on file documented as of this encounter Plan of Treatment Not on file documented as of this encounter Procedures Procedure Name Priority Date/Time Associated Diagnosis Comments CBC WITH DIFFERENTIAL Routine 11/10/2023 6:10 AM INSTITUTIONAL COOK BASIC METABOLIC PANEL Routine 11/10/2023 6:10 AM INSTITUTIONAL COOK documented in this encounter Results * (ABNORMAL) CBC WITH DIFFERENTIAL (11/10/2023 6:10 AM INSTITUTIONAL COOK) WBC 7.9 4.5 - 10.5 K/uL 11/10/2023 6:55 AM INSTITUTIONAL COOK [facility] SERVICES - [facility] RBC 3.65(L) 4.50 - 5.40 M/uL 11/10/2023 6:55 AM INSTITUTIONAL COOK [facility] LABORATORY [facility] - [facility] HEMOGLOBIN 10.8(L) 13.6 - 16.5 g/dL 11/10/2023 6:55 AM INSTITUTIONAL COOK [facility] SERVICES - [facility] HEMATOCRIT 33.6(L) 40.0 - 48.0 % 11/10/2023 6:55 AM INSTITUTIONAL COOK [facility] LABORATORY SERVICES [facility] MCV 92.0 82.0 - 99.0 fL 11/10/2023 6:55 AM INSTITUTIONAL COOK [facility]ORATORY SERVICES [facility] MCH 29.7 27.8 - 34.5 pg 11/10/2023 6:55 AM INSTITUTIONAL COOK [facility] LABORATORY SERVICES [facility] MCHC 32.2(L) 32.5 - 35.5 g/dL 11/10/2023 6:55 AM INSTITUTIONAL COOK [facility]ORY SERVICES [facility] RDW 17.0(H) 11.5 - 14.5 % 11/10/2023 6:55 AM INSTITUTIONAL COOK [facility] LABORATORY SERVICES [facility] PLATELETS 251 160 - 420 K/uL 11/10/2023 6:55 AM INSTITUTIONAL COOK [facility] MPV 9.2 8.7 - 12.7 fL 11/10/2023 6:55 AM INSTITUTIONAL COOK [facility] LABORATORY SERVICES [facility] NEUTROPHILS 62 % 11/10/2023 6:55 AM INSTITUTIONAL COOK [facility]ORATORY SERVICES [facility] LYMPHOCYTES 22 % 11/10/2023 6:55 AM INSTITUTIONAL COOK [facility] MONOCYTES 5 % 11/10/2023 6:55 AM INSTITUTIONAL COOK [facility] EOSINOPHILS 10 % 11/10/2023 6:55 AM INSTITUTIONAL COOK [facility] BASOPHILS 1 % 11/10/2023 6:55 AM INSTITUTIONAL COOK [facility] LABORATORY SERVICES [facility] NEUTROPHIL ABSOLUTE 4.90 1.90 - 7.00 K/uL 11/10/2023 6:55 AM INSTITUTIONAL COOK [facility] LABORATORY SERVICES [facility] LYMPHOCYTE ABSOLUTE 1.70 0.70 - 4.50 K/uL 11/10/2023 6:55 AM INSTITUTIONAL COOK [facility] LABORATORY SERVICES [facility] MONOCYTE ABSOLUTE 0.40 0.10 - 1.30 K/uL 11/10/2023 6:55 AM INSTITUTIONAL COOK [facility] LABORATORY SERVICES [facility] EOSINOPHIL ABSOLUTE 0.80(H) 0.00 - 0.70 K/uL 11/10/2023 6:55 AM INSTITUTIONAL COOK [facility] BASOPHILS ABSOLUTE 0.10 0.00 - 0.20 K/uL 11/10/2023 6:55 AM [facility] Blood 11/10/2023 6:10 AM INSTITUTIONAL COOK 11/10/2023 6:41 AM INSTITUTIONAL COOK Erik Chairez MD HEMATOLOGY ORDERABLES Final Resu lt [facility] CLIA# [id number] [place] [address] * (ABNORMAL) BASIC METABOLIC PANEL (11/10/2023 6:10 AM INSTITUTIONAL COOK) SODIUM 139 136 - 145 mmol/L 11/10/2023 [...] 8 - 16 mmol/L 11/10/2023 7:14 AM INSTITUTIONAL COOK [facility] LABORATORY SERVICES [facility] Blood 11/10/2023 6:10 AM INSTITUTIONAL COOK 11/10/2023 6:41 AM INSTITUTIONAL COOK Erik Chairez MD CHEMISTRY ORDERABLES Final Resul t 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
--- OUTSIDE RECORDS SUMMARY | 2025-07-29 17:23 | XMS_ITS | Encounter Summary ---
Author Organization [facility] Address [address] [place] [address] Care Team Providers Care Veterinary Pharmacologist Name Role Phone Unavailable Primary Care Provider Unavailabl e Encounter Details Date Type Department Care Team (Late st Contact Info) Description 10/11/2023 Lab Requisition [facility] Laboratory Services [address] [place] [address] [place] [address] [place] [address] Social History Tobacco Use Types Packs/Day Years Used Date Smoking Tobacco: Never Assessed Sex and Gender Information Value Date Recorded Sex Assigned at Not on file Legal Sex Male 9:18 AM PROGRAMMER ANA[employer] Gender Identity Not on file Sexual Orientation Not on file documented as of this encounter Plan of Treatment Not on file documented as of this encounter Procedures Procedure Name Priority Date/Time Associated Diagnosis Comments CBC WITH DIFFERENTIAL Routine 10/11/2023 3:30 AM PROGRAMMER ANALY[employer] HE[employer] TRIGLYCERIDE Routine 10/11/2023 3:30 AM PROGRAMMER ANA[employer] MAGNESIUM LEVEL Routine 10/11/2023 3:30 AM PROGRAMMER [employer]NA[employer] RENAL FUNCTION PANEL Routine 10/11/2023 3:30 AM PROGRAMMER ANALY[employer] documented in this encounter Results * (ABNORMAL) TRIGLYCERIDE (10/11/2023 3:30 AM PROGRAMMER ANALY[employer]) TRIGLYCERIDE 192(H) <150 mg/dL 10/11/2023 6:28 AM PROGRAMMER ANALY[employer] IT [facility] LABORATORY SERVICES [facility] Blood 10/11/2023 3:30 AM PROGRAMMER ANALY[employer] 10/11/2023 5:43 AM PROGRAMMER ANALY[employer] Narrative [facility] [employer] [facility] - 10/11/2023 6:28 AM PROGRAMMER ANA[employer] TRIGLYCERIDES mg/dL Normal < 150 Borderline High 150 - 199 High 200 - 499 Very High >= 500 Based on AHA/NCEP Guidelines. Erik Chairez MD CHEMISTRY ORDERABLES Final Resul t Performing Organization Address City/[facility]/ZIP Co de Phone Number [facility] CLIA# [id number] [place] [address] * MAGNESIUM LEVEL (10/11/2023 3:30 AM PROGRAMMER ANALY[employer]) MAGNESIUM 2.2 1.6 - 2.6 mg/dL 10/11/2023 6:28 AM [facility] Blood 10/11/2023 3:30 AM PROGRAMMER ANA[employer] 10/11/2023 5:43 AM PROGRAMMER [employer] Erik Chairez MD CHEMISTRY ORDERABLES Final Resul t Performing Organization Address City/[facility]/ZIP Co de Phone Number [facility] CLIA# [id number] [place] [address] * (ABNORMAL) CBC WITH DIFFERENTIAL (10/11/2023 3:30 AM PROGRAMMER ANALY[employer]) WBC 8.8 4.5 - 10.5 K/uL 10/11/2023 6:05 AM [facility] [employer] [facility] RBC 3.43(L) 4.50 - 5.40 M/uL 10/11/2023 6:05 AM [facility] [employer] [facility] HEMOGLOBIN 10.5(L) 13.6 - 16.5 g/dL 10/11/2023 6:05 AM [facility] HEMATOCRIT 32.7(L) 40.0 - 48.0 % 10/11/2023 6:05 AM [facility] MCV 95.4 82.0 - 99.0 fL 10/11/2023 6:05 AM [facility] MCH 30.7 27.8 - 34.5 pg 10/11/2023 6:05 AM [facility] LABORATORY [facility] MCHC 32.2(L) 32.5 - 35.5 g/dL 10/11/2023 6:05 AM [facility] LABORATORY [facility] RDW 18.7(H) 11.5 - 14.5 % 10/11/2023 6:05 AM [facility] LABORATORY [facility] PLATELETS 218 160 - 420 K/uL 10/11/2023 6:05 AM [facility] LABORATORY [facility] MPV 9.3 8.7 - 12.7 fL 10/11/2023 6:05 AM PROGRAMMER ANA[employer] [facility] LABORATORY SERVICES [facility] NEUTROPHILS 67 % 10/11/2023 6:05 AM PROGRAMMER ANALY[employer] [facility] LABORATORY SERVICES [facility] LYMPHOCYTES 18 % 10/11/2023 6:05 AM PROGRAMMER ANA[employer] [facility] LABORATORY SERVICES [facility] MONOCYTES 7 % 10/11/2023 6:05 AM PROGRAMMER ANA[employer] [facility] LABORATORY [facility] EOSINOPHILS 7 % 10/11/2023 6:05 AM [facility] LABORATORY [facility] BASOPHILS 1 % 10/11/2023 6:05 AM PROGRAMMER ANA[employer] [facility] LABORATORY [facility] NEUTROPHIL ABSOLUTE 5.90 1.90 - 7.00 K/uL 10/11/2023 6:05 AM [facility] LABORATORY [facility] LYMPHOCYTE ABSOLUTE 1.60 0.70 - 4.50 K/uL 10/11/2023 6:05 AM [facility] LABORATORY [facility] MONOCYTE ABSOLUTE 0.60 0.10 - 1.30 K/uL 10/11/2023 6:05 AM [facility] LABORATORY [facility] EOSINOPHIL ABSOLUTE 0.60 0.00 - 0.70 K/uL 10/11/2023 6:05 AM PROGRAMMER ANALY[employer] [facility] LABORATORY [facility] BASOPHILS ABSOLUTE 0.10 0.00 - 0.20 K/uL 10/11/2023 6:05 AM [facility] LABORATORY [facility] Blood 10/11/2023 3:30 AM PROGRAMMER ANALY[employer] 10/11/2023 5:43 AM PROGRAMMER ANA[employer] us Erik Chairez MD HEMATOLOGY ORDERABLES Final Resu lt [facility] CLIA# [id number] [address] [place] [address] * (ABNORMAL) RENAL FUNCTION PANEL (10/11/2023 3:30 AM PROGRAMMER ANA[employer]) SODIUM 145 136 - 145 mmol/L 10/11/2023 6:28 AM [facility] [employer] [facility] POTASSIUM 4.0 3.4 - 5.1 mmol/L 10/11/2023 6:28 AM [facility] CHLORIDE 106 98 - 107 mmol/L 10/11/2023 6:28 AM [facility] CO2 26 22 - 29 [...] 8 - 16 mmol/L 10/11/2023 6:28 AM PROGRAMMER ANALY[employer] [facility] LABORATORY [facility] Blood 10/11/2023 3:30 AM PROGRAMMER ANALY[employer] 10/11/2023 5:43 AM PROGRAMMER A[employer] Erik Chairez MD CHEMISTRY ORDERABLES Final Resul t 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
--- OUTSIDE RECORDS SUMMARY | 2025-07-29 17:23 | XMS_ITS | Encounter Summary ---
Author Organization [facility] Address [address] [place] [address] Care Team Providers Care Apprentice Electrician Name Role Phone Unavailable Primary Care Provider Unavailabl e Encounter Details Date Type Department Care Team (Late st Contact Info) Description 10/26/[address] [facility] Laboratory Services [address] [place] [address] [place] [address] [place] [address] Social History Tobacco Use Types Packs/Day Years Used Date Smoking Tobacco: Never Assessed Sex and Gender Information Value Date Recorded Sex Assigned at Not on file Legal Sex Male 9:18 AM POKER ROOM MANAGER Gender Identity Not on file Sexual Orientation Not on file documented as of this encounter Plan of Treatment Not on file documented as of this encounter Procedures Procedure Name Priority Date/Time Associated Diagnosis Comments CBC WITH DIFFERENTIAL Routine 10/26/2023 3:20 AM POKER ROOM MANAGER BASIC METABOLIC PANEL Routine 10/26/2023 3:20 AM POKER ROOM MANAGER documented in this encounter Results * (ABNORMAL) CBC WITH DIFFERENTIAL (10/26/2023 3:20 AM POKER ROOM MANAGER) WBC 9.2 4.5 - 10.5 K/uL 10/26/2023 5:32 AM POKER ROOM MANAGER [facility] - [facility] RBC 3.83(L) 4.50 - 5.40 M/uL 10/26/2023 5:32 AM POKER ROOM MANAGER [facility] LABOR[facility] HEMOGLOBIN 11.4(L) 13.6 - 16.5 g/dL 10/26/2023 5:32 AM POKER ROOM MANAGER [facility] HEMATOCRIT 35.4(L) 40.0 - 48.0 % 10/26/2023 5:32 AM POKER ROOM MANAGER [facility] LABORATORY SERVICES [facility] MCV 92.4 82.0 - 99.0 fL 10/26/2023 5:32 AM POKER ROOM MANAGER [facility] - [facility] MCH 29.6 27.8 - 34.5 pg 10/26/2023 5:32 AM POKER ROOM MANAGER [facility] LABORATORY SERVICES [facility] MCHC 32.0(L) 32.5 - 35.5 g/dL 10/26/2023 5:32 AM POKER ROOM MANAGER [facility] LABORATORY SERVICES [facility] RDW 17.3(H) 11.5 - 14.5 % 10/26/2023 5:32 AM POKER ROOM MANAGER [facility] LABORATORY SERVICES [facility] PLATELETS 240 160 - 420 K/uL 10/26/2023 5:32 AM POKER ROOM MANAGER [facility] LABORATORY SERVICES [facility] MPV 9.3 8.7 - 12.7 fL 10/26/2023 5:32 AM POKER ROOM MANAGER [facility] LABORATORY SERVICES [facility] NEUTROPHILS 69 % 10/26/2023 5:32 AM POKER ROOM MANAGER [facility] LABORATORY SERVICES [facility] LYMPHOCYTES 21 % 10/26/2023 5:32 AM POKER ROOM MANAGER [facility] LABORATORY SERVICES [facility] MONOCYTES 6 % 10/26/2023 5:32 AM POKER ROOM MANAGER [facility] LABORATORY SERVICES [facility] EOSINOPHILS 4 % 10/26/2023 5:32 AM POKER ROOM MANAGER [facility] LABORATORY SERVICES [facility] BASOPHILS 1 % 10/26/2023 5:32 AM POKER ROOM MANAGER [facility] LABORATORY SERVICES [facility] NEUTROPHIL ABSOLUTE 6.30 1.90 - 7.00 K/uL 10/26/2023 5:32 AM POKER ROOM MANAGER [facility] LABORATORY SERVICES [facility] LYMPHOCYTE ABSOLUTE 1.90 0.70 - 4.50 K/uL 10/26/2023 5:32 AM POKER ROOM MANAGER [facility] MONOCYTE ABSOLUTE 0.50 0.10 - 1.30 K/uL 10/26/2023 5:32 AM POKER ROOM MANAGER [facility] LABORATORY SERVICES [facility] EOSINOPHIL ABSOLUTE 0.40 0.00 - 0.70 K/uL 10/26/2023 5:32 AM POKER ROOM MANAGER [facility] LABORATORY SERVICES [facility] BASOPHILS ABSOLUTE 0.00 0.00 - 0.20 K/uL 10/26/2023 5:32 AM [facility] Blood Collection / Unknown 10/26/2023 3:20 AM POKER ROOM MANAGER 10/26/2023 4:57 AM POKER ROOM MANAGER Erik Chairez MD HEMATOLOGY ORDERABLES Final Resu lt [facility] CLIA# [id number] [facility] [place] [address] * (ABNORMAL) BASIC METABOLIC PANEL (10/26/2023 3:20 AM POKER ROOM MANAGER) SODIUM 137 136 - 145 mmol/L 10/26/2023 5:58 AM [facility] POTASSIUM 4.2 3.4 - 5.1 mmol/L 10/26/2023 5:58 AM [facility] CHLORIDE 100 98 - 107 mmol/L 10/26/2023 5:58 AM [facility] CO2 27 22 - 29 mmol/L 10/26/2023 5:58 AM [facility] CALCIUM 9.8 8.6 - 10.4 mg/dL 10/26/2023 5:58 AM [facility] BUN 39(H) 6 - 20 mg/dL 10/26/2023 5:58 AM [facility] CREATININE 1.01 0.67 - 1.17 mg/dL 10/26/2023 5:58 AM [facility] Comment:The GFR result is no t clinically significant on patients <18 or >70 years of age. GLUCOSE 110(H) 74 - 99 mg/dL 10/26/2023 5:58 AM [facility] GFR >60 mL/min/1.7 3 sq meter 10/26/2023 5:58 AM [facility] Comment:eGFR calculated with 2020 CKD-EPI equation. Vegetarian diet, extremely high or low muscle mass, and may affect results. Cystatin C with Glomerular Filtration Rate is a suitable alternative for these patients. ANION GAP 10 8 - 16 mmol/L 10/26/2023 5:58 AM POKER ROOM MANAGER [facility] LABORATORY SERVICES [facility] Blood Collection / Unknown 10/26/2023 3:20 AM POKER ROOM MANAGER 10/26/2023 4:57 AM POKER ROOM MANAGER Erik Chairez MD CHEMISTRY ORDERABLES Final Resul t [facility] LABORATORY SERVICES [facility] CLIA# [id number] [address] [place] [address] documented in this encounter Visit Diagnoses Not on filedocumented in this encounter Additional Health Concerns Infection Onset Date Last Indicated Resolved Time CRE-CP Comment:10/09/23 Klebsiella pneumoniae, Sputum 10/09/2023 10/09/2023 05/28/2024 2:37 PM C DT 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
--- OUTSIDE RECORDS SUMMARY | 2025-07-29 17:23 | XMS_ITS | Encounter Summary ---
Author Organization [employer] [facility] Address [address] [place] [address] Care Team Providers Care Bin Piler Name Role Phone Unavailable Primary Care Provider Unavailabl e Encounter Details Date Type Department Care Team (Late st Contact Info) Description 11/07/2023 Lab Requisition [facility] Laboratory Services [address] [place] [address] [place] [address] [place] [address] Social History Tobacco Use Types Packs/Day Years Used Date Smoking Tobacco: Never Assessed Sex and Gender Information Value Date Recorded Sex Assigned at Not on file Legal Sex Male 9:18 AM SUBSTATION SUPERVISOR Gender Identity Not on file Sexual Orientation Not on file documented as of this encounter Plan of Treatment Not on file documented as of this encounter Procedures Procedure Name Priority Date/Time Associated Diagnosis Comments THEOPHYLLINE LEVEL Routine 11/07/2023 8: 40 AM SUBSTATION SUPERVISOR documented in this encounter Results * (ABNORMAL) THEOPHYLLINE LEVEL (11/07/2023 8:40 AM SUBSTATION SUPERVISOR) THEOPHYLLINE LEVEL <0.8(L) 10.0 - 20.0 ug/mL 11/07/2023 3:56 PM SUBSTATION SUPERVISOR [facility] LABORATORY SERVICES [facility] Comment:Verified by repeat a nalysis. TDM LAST DATE, TIME, AMT (TIFFANIE) Patient unable to state date. time or dose. 11/07/2023 3:56 PM SUBSTATION SUPERVISOR [facility] LABORATORY SERVICES [facility] LAST DOSE AMT, THEOPHYLLINE Other 11/07/2023 3:56 PM SUBSTATION SUPERVISOR [facility]ORAT[facility] SERVICES [facility] Comment:80 mg Blood 11/07/2023 8:40 AM SUBSTATION SUPERVISOR 11/07/2023 10:34 AM SUBSTATION SUPERVISOR Narrative [facility] LABORAT[facility] - 11/07/2023 3:56 PM SUBSTATION SUPERVISOR Theophylline Toxic Levels: 6 months - Adult = >20.0 ug/mL 0 - 6 months = >15.0 ug/mL Erik Chairez MD CHEMISTRY ORDERABLES Final Resul t [facility]OR[facility] CLIA# [id number] [address] [place] [address] [facility] LABORATORY [facility] CLIA# [id number] [address] [place] [address] documented in this encounter Visit Diagnoses Not on filedocumented in this encounter Additional Health Concerns Infection Onset Date Last Indicated Resolved Time CRE-CP Comment:10/09/23 Klebsiella pneumoniae, Sputum 10/09/2023 10/09/2023 05/28/2024 2:37 PM C DT 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
--- OUTSIDE RECORDS SUMMARY | 2025-07-29 17:23 | XMS_ITS | Encounter Summary ---
Author Organization [facility] Address [address] [place] [address] Care Team Providers Care Port Traffic Manager Name Role Phone Unavailable Primary Care Provider Unavailabl e Encounter Details Date Type Department Care Team (Late st Contact Info) Description 11/07/2023 Lab Requisition [facility] Laboratory Services [address] [place] [address] [place] [id number] [place] [address] Social History Tobacco Use Types Packs/Day Years Used Date Smoking Tobacco: Never Assessed Sex and Gender Information Value Date Recorded Sex Assigned at Not on file Legal Sex Male 9:18 AM MAINSPRING REVERSE WINDER Gender Identity Not on file Sexual Orientation Not on file documented as of this encounter Plan of Treatment Not on file documented as of this encounter Procedures Procedure Name Priority Date/Time Associated Diagnosis Comments CBC WITH DIFFERENTIAL Routine 11/07/2023 4:30 AM MAINSPRING REVERSE WINDER BASIC METABOLIC PANEL Routine 11/07/2023 4:30 AM MAINSPRING REVERSE WINDER documented in this encounter Results * (ABNORMAL) CBC WITH DIFFERENTIAL (11/07/2023 4:30 AM MAINSPRING REVERSE WINDER) WBC 9.4 4.5 - 10.5 K/uL 11/07/2023 8:10 AM MAINSPRING REVERSE WINDER [facility] - [facility] RBC 4.06(L) 4.50 - 5.40 M/uL 11/07/2023 8:10 AM MAINSPRING REVERSE WINDER [facility] HEMOGLOBIN 11.9(L) 13.6 - 16.5 g/dL 11/07/2023 8:10 AM MAINSPRING REVERSE WINDER [facility] HEMATOCRIT 37.1(L) 40.0 - 48.0 % 11/07/2023 8:10 AM MAINSPRING REVERSE WINDER [facility] MCV 91.5 82.0 - 99.0 fL 11/07/2023 8:10 AM MAINSPRING REVERSE WINDER [facility] - [facility] MCH 29.4 27.8 - 34.5 pg 11/07/2023 8:10 AM MAINSPRING REVERSE WINDER [facility] MCHC 32.1(L) 32.5 - 35.5 g/dL 11/07/2023 8:10 AM MAINSPRING REVERSE WINDER [facility] RDW 16.9(H) 11.5 - 14.5 % 11/07/2023 8:10 AM MAINSPRING REVERSE WINDER [facility] PLATELETS 270 160 - 420 K/uL 11/07/2023 8:10 AM MAINSPRING REVERSE WINDER [facility] MPV 10.0 8.7 - 12.7 fL 11/07/2023 8:10 AM MAINSPRING REVERSE WINDER [facility] NEUTROPHILS 61 % 11/07/2023 8:10 AM MAINSPRING REVERSE WINDER [facility] LYMPHOCYTES 21 % 11/07/2023 8:10 AM MAINSPRING REVERSE WINDER [facility] MONOCYTES 6 % 11/07/2023 8:10 AM MAINSPRING REVERSE WINDER [facility] EOSINOPHILS 11 % 11/07/2023 8:10 AM MAINSPRING REVERSE WINDER [facility] BASOPHILS 1 % 11/07/2023 8:10 AM MAINSPRING REVERSE WINDER [facility] NEUTROPHIL ABSOLUTE 5.70 1.90 - 7.00 K/uL 11/07/2023 8:10 AM MAINSPRING REVERSE WINDER [facility] LYMPHOCYTE ABSOLUTE 2.00 0.70 - 4.50 K/uL 11/07/2023 8:10 AM MAINSPRING REVERSE WINDER [facility] MONOCYTE ABSOLUTE 0.60 0.10 - 1.30 K/uL 11/07/2023 8:10 AM MAINSPRING REVERSE WINDER [facility] EOSINOPHIL ABSOLUTE 1.00(H) 0.00 - 0.70 K/uL 11/07/2023 8:10 AM MAINSPRING REVERSE WINDER [facility] BASOPHILS ABSOLUTE 0.10 0.00 - 0.20 K/uL 11/07/2023 8:10 AM [facility] Blood 11/07/2023 4:30 AM MAINSPRING REVERSE WINDER 11/07/2023 8:06 AM MAINSPRING REVERSE WINDER us Erik Chairez MD HEMATOLOGY ORDERABLES Final Resu lt [facility] CLIA# [id number] [place] [address] * (ABNORMAL) BASIC METABOLIC PANEL (11/07/2023 4:30 AM MAINSPRING REVERSE WINDER) SODIUM 137 136 - 145 mmol/L 11/07/2023 8:41 AM [facility] POTASSIUM 4.2 3.4 - 5.1 mmol/L 11/07/2023 8:41 AM [facility] CHLORIDE 100 98 - 107 mmol/L 11/07/2023 8:41 AM [facility] CO2 22 22 - 29 mmol/L 11/07/2023 8:41 AM [facility] CALCIUM 9.9 8.6 - 10.4 mg/dL 11/07/2023 8:41 AM [facility] BUN 41(H) 6 - 20 mg/dL 11/07/2023 8:41 AM [facility] CREATININE 1.03 0.67 - 1.17 mg/dL 11/07/2023 8:41 AM [facility] Comment:The GFR result is no t clinically significant on patients <18 or >70 years of age. GLUCOSE 109(H) 74 - 99 mg/dL 11/07/2023 8:41 AM [facility] GFR >60 mL/min/1.7 3 sq meter 11/07/2023 8:41 AM [facility] Comment:eGFR calculated with 2020 CKD-EPI equation. Vegetarian diet, extremely high or low muscle mass, and may affect results. Cystatin C with Glomerular Filtration Rate is a suitable alternative for these patients. 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
--- OUTSIDE RECORDS SUMMARY | 2025-07-29 17:23 | XMS_ITS | Encounter Summary ---
Author Organization [facility] Address [address] [place] [address] Care Team Providers Care Mgmt Analyst Name Role Phone Unavailable Primary Care Provider Unavailabl e Encounter Details Date Type Department Care Team (Late st Contact Info) Description 10/29/2023 Lab Requisition [facility] Laboratory Services [address] [place] [address] [place] [id number] [place] [address] Social History Tobacco Use Types Packs/Day Years Used Date Smoking Tobacco: Never Assessed Sex and Gender Information Value Date Recorded Sex Assigned at Not on file Legal Sex Male 9:18 AM SUPERVISOR NURSE Gender Identity Not on file Sexual Orientation Not on file documented as of this encounter Plan of Treatment Not on file documented as of this encounter Procedures Procedure Name Priority Date/Time Associated Diagnosis Comments CBC WITH DIFFERENTIAL Routine 10/29/2023 3:20 AM SUPERVISOR NURSE BASIC METABOLIC PANEL Routine 10/29/2023 3:20 AM SUPERVISOR NURSE documented in this encounter Results * (ABNORMAL) CBC WITH DIFFERENTIAL (10/29/2023 3:20 AM SUPERVISOR NURSE) WBC 8.0 4.5 - 10.5 K/uL 10/29/2023 8:18 AM SUPERVISOR NURSE [facility] - [facility] RBC 3.85(L) 4.50 - 5.40 M/uL 10/29/2023 8:18 AM SUPERVISOR NURSE [facility] HEMOGLOBIN 11.6(L) 13.6 - 16.5 g/dL 10/29/2023 8:18 AM SUPERVISOR NURSE [facility] HEMATOCRIT 35.7(L) 40.0 - 48.0 % 10/29/2023 8:18 AM SUPERVISOR NURSE [facility] LABORATORY SERVICES [facility] MCV 92.6 82.0 - 99.0 fL 10/29/2023 8:18 AM SUPERVISOR NURSE [facility] SERVICES - [facility] MCH 30.0 27.8 - 34.5 pg 10/29/2023 8:18 AM SUPERVISOR NURSE [facility]OR[facility] SERVICES [facility] MCHC 32.4(L) 32.5 - 35.5 g/dL 10/29/2023 8:18 AM SUPERVISOR NURSE [facility] SERVICES [facility] RDW 17.3(H) 11.5 - 14.5 % 10/29/2023 8:18 AM SUPERVISOR NURSE [facility] SERVICES [facility] PLATELETS 255 160 - 420 K/uL 10/29/2023 8:18 AM SUPERVISOR NURSE [facility] SERVICES [facility] MPV 9.9 8.7 - 12.7 fL 10/29/2023 8:18 AM SUPERVISOR NURSE [facility] SERVICES [facility] NEUTROPHILS 61 % 10/29/2023 8:18 AM SUPERVISOR NURSE [facility]OR[facility] SERVICES [facility] LYMPHOCYTES 22 % 10/29/2023 8:18 AM [facility]VIS[facility]URSE [facility] MONOCYTES 6 % 10/29/2023 8:18 AM SUPERVISOR NURSE [facility] EOSINOPHILS 11 % 10/29/2023 8:18 AM SUPERVISOR NURSE [facility] LABOR[facility] SERVICES [facility] BASOPHILS 1 % 10/29/2023 8:18 AM SUPERVISOR NURSE [facility] SERVICES [facility] NEUTROPHIL ABSOLUTE 4.90 1.90 - 7.00 K/uL 10/29/2023 8:18 AM SUPERVISOR NURSE [facility] LABORATORY SERVICES [facility] LYMPHOCYTE ABSOLUTE 1.70 0.70 - 4.50 K/uL 10/29/2023 8:18 AM SUPERVISOR NURSE [facility] MONOCYTE ABSOLUTE 0.50 0.10 - 1.30 K/uL 10/29/2023 8:18 AM SUPERVISOR NURSE [facility] LABORATORY SERVICES [facility] EOSINOPHIL ABSOLUTE 0.80(H) 0.00 - 0.70 K/uL 10/29/2023 8:18 AM SUPERVISOR NURSE [facility] LABORATORY SERVICES [facility] BASOPHILS ABSOLUTE 0.00 0.00 - 0.20 K/uL 10/29/2023 8:18 AM [facility] Blood Collection / Unknown 10/29/2023 3:20 AM SUPERVISOR NURSE 10/29/2023 7:59 AM SUPERVISOR NURSE Erik Chairez MD HEMATOLOGY ORDERABLES Final Resu lt [facility] CLIA# [id number] [place] [address] * (ABNORMAL) BASIC METABOLIC PANEL (10/29/2023 3:20 AM SUPERVISOR NURSE) SODIUM 141 136 - 145 mmol/L 10/29/2023 8:38 AM [facility] POTASSIUM 4.5 3.4 - 5.1 mmol/L 10/29/2023 8:38 AM [facility] CHLORIDE 101 98 - 107 mmol/L 10/29/2023 8:38 AM [facility] CO2 28 22 - 29 mmol/L 10/29/2023 8:38 AM [facility] CALCIUM 10.2 8.6 - 10.4 mg/dL 10/29/2023 8:38 AM [facility] BUN 42(H) 6 - 20 mg/dL 10/29/2023 8:38 AM [facility] CREATININE 1.05 0.67 - 1.17 mg/dL 10/29/2023 8:38 AM [facility] Comment:The GFR result is no t clinically significant on patients <18 or >70 years of age. GLUCOSE 112(H) 74 - 99 mg/dL 10/29/2023 8:38 AM [facility] GFR >60 mL/min/1.7 3 sq meter 10/29/2023 8:38 AM [facility] Comment:eGFR calculated with 2020 CKD-EPI equation. Vegetarian diet, extremely high or low muscle mass, and may affect results. Cystatin C with Glomerular Filtration Rate is a suitable alternative for these patients. 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
--- OUTSIDE RECORDS SUMMARY | 2025-07-29 17:23 | XMS_ITS | Encounter Summary ---
Author Organization [facility] Address [address] [place] [address] Care Team Providers Care Tin Pourer Name Role Phone Unavailable Primary Care Provider Unavailabl e Encounter Details Date Type Department Care Team (Late st Contact Info) Description 11/01/2023 Lab Requisition [facility] Laboratory Services [address] [place] [address] [place] [address] [place] [address] Social History Tobacco Use Types Packs/Day Years Used Date Smoking Tobacco: Never Assessed Sex and Gender Information Value Date Recorded Sex Assigned at Not on file Legal Sex Male 9:18 AM RECREATIONAL COUNSELOR Gender Identity Not on file Sexual Orientation Not on file documented as of this encounter Plan of Treatment Not on file documented as of this encounter Procedures Procedure Name Priority Date/Time Associated Diagnosis Comments CBC WITH DIFFERENTIAL Routine 11/01/2023 4:20 AM RECREATIONAL COUNSELOR BASIC METABOLIC PANEL Routine 11/01/2023 4:20 AM RECREATIONAL COUNSELOR documented in this encounter Results * (ABNORMAL) CBC WITH DIFFERENTIAL (11/01/2023 4:20 AM RECREATIONAL COUNSELOR) WBC 8.5 4.5 - 10.5 K/uL 11/01/2023 8:48 AM RECREATIONAL COUNSELOR [facility] - [facility] RBC 3.87(L) 4.50 - 5.40 M/uL 11/01/2023 8:48 AM RECREATIONAL COUNSELOR [facility] HEMOGLOBIN 11.2(L) 13.6 - 16.5 g/dL 11/01/2023 8:48 AM RECREATIONAL COUNSELOR [facility] HEMATOCRIT 34.9(L) 40.0 - 48.0 % 11/01/2023 8:48 AM RECREATIONAL COUNSELOR [facility] LABORATORY SERVICES [facility] MCV 90.3 82.0 - 99.0 fL 11/01/2023 8:48 AM RECREATIONAL COUNSELOR [facility] SERVICES - [facility] MCH 29.0 27.8 - 34.5 pg 11/01/2023 8:48 AM RECREATIONAL COUNSELOR [facility] LABORAT[facility] SERVICES [facility] MCHC 32.1(L) 32.5 - 35.5 g/dL 11/01/2023 8:48 AM RECREATIONAL COUNSELOR [facility]ORAT[facility] SERVICES [facility] RDW 17.0(H) 11.5 - 14.5 % 11/01/2023 8:48 AM RECREATIONAL COUNSELOR [facility] LABORATORY SERVICES [facility] PLATELETS 246 160 - 420 K/uL 11/01/2023 8:48 AM RECREATIONAL COUNSELOR [facility] MPV 9.7 8.7 - 12.7 fL 11/01/2023 8:48 AM RECREATIONAL COUNSELOR [facility] NEUTROPHILS 53 % 11/01/2023 8:48 AM RECREATIONAL COUNSELOR [facility] LYMPHOCYTES 29 % 11/01/2023 8:48 AM RECREATIONAL COUNSELOR [facility] MONOCYTES 7 % 11/01/2023 8:48 AM RECREATIONAL COUNSELOR [facility] EOSINOPHILS 12 % 11/01/2023 8:48 AM RECREATIONAL COUNSELOR [facility] BASOPHILS 1 % 11/01/2023 8:48 AM RECREATIONAL COUNSELOR [facility] LABORATORY SERVICES [facility] NEUTROPHIL ABSOLUTE 4.50 1.90 - 7.00 K/uL 11/01/2023 8:48 AM RECREATIONAL COUNSELOR [facility] LABORATORY SERVICES [facility] LYMPHOCYTE ABSOLUTE 2.40 0.70 - 4.50 K/uL 11/01/2023 8:48 AM RECREATIONAL COUNSELOR [facility] MONOCYTE ABSOLUTE 0.60 0.10 - 1.30 K/uL 11/01/2023 8:48 AM RECREATIONAL COUNSELOR [facility] LABORATORY SERVICES [facility] EOSINOPHIL ABSOLUTE 1.00(H) 0.00 - 0.70 K/uL 11/01/2023 8:48 AM RECREATIONAL COUNSELOR [facility] LABORATORY SERVICES [facility] BASOPHILS ABSOLUTE 0.00 0.00 - 0.20 K/uL 11/01/2023 8:48 AM [facility] Blood Collection / Unknown 11/01/2023 4:20 AM RECREATIONAL COUNSELOR 11/01/2023 7:57 AM RECREATIONAL COUNSELOR Erik Chairez MD HEMATOLOGY ORDERABLES Final Resu lt [facility] CLIA# [id number] [place] [address] * (ABNORMAL) BASIC METABOLIC PANEL (11/01/2023 4:20 AM RECREATIONAL COUNSELOR) SODIUM 139 136 - 145 mmol/L 11/01/2023 9:12 AM [facility] POTASSIUM 3.7 3.4 - 5.1 mmol/L 11/01/2023 9:12 AM [facility] CHLORIDE 100 98 - 107 mmol/L 11/01/2023 9:12 AM [facility] CO2 27 22 - 29 mmol/L 11/01/2023 9:12 AM [facility] CALCIUM 9.8 8.6 - 10.4 mg/dL 11/01/2023 9:12 AM [facility] BUN 41(H) 6 - 20 mg/dL 11/01/2023 9:12 AM [facility] CREATININE 0.93 0.67 - 1.17 mg/dL 11/01/2023 9:12 AM [facility] Comment:The GFR result is no t clinically significant on patients <18 or >70 years of age. GLUCOSE 109(H) 74 - 99 mg/dL 11/01/2023 9:12 AM [facility] GFR >60 mL/min/1.7 3 sq meter 11/01/2023 9:12 AM [facility] Comment:eGFR calculated with 2020 CKD-EPI equation. Vegetarian diet, extremely high or low muscle mass, and may affect results. Cystatin C with Glomerular Filtration Rate is a suitable alternative for these patients. 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
--- OUTSIDE RECORDS SUMMARY | 2025-07-29 17:23 | XMS_ITS | Encounter Summary ---
Author Organization [facility] Address [address] [place] [address] Care Team Providers Care Overhead Worker Name Role Phone Unavailable Primary Care Provider Unavailabl e Encounter Details Date Type Department Care Team (Late st Contact Info) Description 10/20/2023 Lab Requisition [facility] Laboratory Services [id number] [place] [address] [place] [address] [place] [address] Social History Tobacco Use Types Packs/Day Years Used Date Smoking Tobacco: Never Assessed Sex and Gender Information Value Date Recorded Sex Assigned at Not on file Legal Sex Male 9:18 AM LEAD SUSTAINABILITY SPECIALIST Gender Identity Not on file Sexual Orientation Not on file documented as of this encounter Plan of Treatment Not on file documented as of this encounter Procedures Procedure Name Priority Date/Time Associated Diagnosis Comments CBC WITH DIFFERENTIAL Routine 10/20/2023 2:20 AM LEAD SUSTAINABILITY SPECIALIST BASIC METABOLIC PANEL Routine 10/20/2023 2:20 AM LEAD SUSTAINABILITY SPECIALIST documented in this encounter Results * (ABNORMAL) CBC WITH DIFFERENTIAL (10/20/2023 2:20 AM LEAD SUSTAINABILITY SPECIALIST) WBC 8.3 4.5 - 10.5 K/uL 10/20/2023 5:25 AM LEAD SUSTAINABILITY SPECIALIST [facility] LABORATORY SERVICES - [facility] RBC 3.82(L) 4.50 - 5.40 M/uL 10/20/2023 5:25 AM LEAD SUSTAINABILITY SPECIALIST [facility] LABORATORY [facility] - [facility] HEMOGLOBIN 11.2(L) 13.6 - 16.5 g/dL 10/20/2023 5:25 AM LEAD SUSTAINABILITY SPECIALIST [facility] LABORATORY SERVICES - [facility] HEMATOCRIT 35.0(L) 40.0 - 48.0 % 10/20/2023 5:25 AM LEAD SUSTAINABILITY SPECIALIST [facility] LABORATORY SERVICES [facility] MCV 91.6 82.0 - 99.0 fL 10/20/2023 5:25 AM LEAD SUSTAINABILITY SPECIALIST [facility] LABORATORY SERVICES - [facility] MCH 29.4 27.8 - 34.5 pg 10/20/2023 5:25 AM LEAD SUSTAINABILITY SPECIALIST [facility] LABORATORY SERVICES [facility] MCHC 32.1(L) 32.5 - 35.5 g/dL 10/20/2023 5:25 AM LEAD SUSTAINABILITY SPECIALIST [facility] LABORATORY SERVICES - [facility] RDW 17.4(H) 11.5 - 14.5 % 10/20/2023 5:25 AM LEAD SUSTAINABILITY SPECIALIST [email or web address] - [facility] PLATELETS 255 160 - 420 K/uL 10/20/2023 5:25 AM LEAD SUSTAINABILITY SPECIALIST [email or web address] MPV 9.4 8.7 - 12.7 fL 10/20/2023 5:25 AM LEAD SUSTAINABILITY SPECIALIST [email or web address] - [facility] NEUTROPHILS 60 % 10/20/2023 5:25 AM LEAD SUSTAINABILITY SPECIALIST [facility] - [facility] LYMPHOCYTES 23 % 10/20/2023 5:25 AM LEAD SUSTAINABILITY SPECIALIST [employer] LABORATORY SERVICES [facility] MONOCYTES 6 % 10/20/2023 5:25 AM LEAD SUSTAINABILITY SPECIALIST [facility] EOSINOPHILS 11 % 10/20/2023 5:25 AM LEAD SUSTAINABILITY SPECIALIST [email or web address] BASOPHILS 1 % 10/20/2023 5:25 AM LEAD SUSTAINABILITY SPECIALIST [email or web address] NEUTROPHIL ABSOLUTE 4.90 1.90 - 7.00 K/uL 10/20/2023 5:25 AM LEAD SUSTAINABILITY SPECIALIST [facility] LYMPHOCYTE ABSOLUTE 1.90 0.70 - 4.50 K/uL 10/20/2023 5:25 AM LEAD SUSTAINABILITY SPECIALIST [employer] LABORATORY SERVICES [facility] MONOCYTE ABSOLUTE 0.50 0.10 - 1.30 K/uL 10/20/2023 5:25 AM LEAD SUSTAINABILITY SPECIALIST [facility] EOSINOPHIL ABSOLUTE 0.90(H) 0.00 - 0.70 K/uL 10/20/2023 5:25 AM LEAD SUSTAINABILITY SPECIALIST [facility] BASOPHILS ABSOLUTE 0.00 0.00 - 0.20 K/uL 10/20/2023 5:25 AM [facility] Blood 10/20/2023 2:20 AM LEAD SUSTAINABILITY SPECIALIST 10/20/2023 5:15 AM LEAD SUSTAINABILITY SPECIALIST Erik Chairez MD HEMATOLOGY ORDERABLES Final Resu lt [facility] CLIA# [id number] [place] [address] * (ABNORMAL) BASIC METABOLIC PANEL (10/20/2023 2:20 AM LEAD SUSTAINABILITY SPECIALIST) SODIUM 140 136 - 145 mmol/L 10/20/2023 5:53 AM [facility] POTASSIUM 3.8 3.4 - 5.1 mmol/L 10/20/2023 5:53 AM [facility] CHLORIDE 101 98 - 107 mmol/L 10/20/2023 5:53 AM [facility] CO2 26 22 - 29 mmol/L 10/20/2023 5:53 AM [facility] CALCIUM 9.6 8.6 - 10.4 mg/dL 10/20/2023 5:53 AM [facility] BUN 30(H) 6 - 20 mg/dL 10/20/2023 5:53 AM [facility] CREATININE 0.89 0.67 - 1.17 mg/dL 10/20/2023 5:53 AM [facility] Comment:The GFR result is no t clinically significant on patients <18 or >70 years of age. GLUCOSE 110(H) 74 - 99 mg/dL 10/20/2023 5:53 AM [facility] GFR >60 mL/min/1.7 3 sq meter 10/20/2023 5:53 AM [facility] Comment:eGFR calculated with 2020 CKD-EPI equation. Vegetarian diet, extremely high or low muscle mass, and may affect results. Cystatin C with Glomerular Filtration Rate is a suitable alternative for these patients. ANION GAP 13 8 - 16 mmol/L 10/20/2023 5:53 AM LEAD SUSTAINABILITY SPECIALIST [facility] LABORATORY SERVICES [facility] Blood 10/20/2023 2:20 AM LEAD SUSTAINABILITY SPECIALIST 10/20/2023 5:15 AM LEAD SUSTAINABILITY SPECIALIST Erik Chairez MD CHEMISTRY ORDERABLES Final Resul t [facility] CLIA# [id number] [address] [place] [address] documented in this encounter Visit Diagnoses Not on filedocumented in this encounter Additional Health Concerns Infection Onset Date Last Indicated Resolved Time 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
--- OUTSIDE RECORDS SUMMARY | 2025-07-29 17:23 | XMS_ITS | Encounter Summary ---
Author Organization [facility] Address [address] [place] [address] Care Team Providers Care Hot Die Press Operator Name Role Phone Demond Stark MD Primary Care Provider [phone] Encounter Details Date Type Department Care Team (Late st Contact Info) Description 10/16/2016 Orders Only [facility] ProviderTaylor MD [address] [place], [place] [id number] Social History Tobacco Use Types Packs/Day Years Used Date Smoking Tobacco: Former Cigarettes Q uit: 09/23/1969 Alcohol Use Standard Drinks/Week Comments Yes 0 (1 standard drink = 0.6 oz pur e alcohol) Sex and Gender Information Value Date Recorded Sex Assigned at Not on file Legal Sex Male 8:49 AM BOMB LOADER Gender Identity Not on file Sexual [...] on filedocumented in this encounter Care Teams Hot Die Press Operator Relationship Specialty Start Date End Date Demond Stark MD PCP - General 07/23/11 documented as of this encounter
--- OUTSIDE RECORDS SUMMARY | 2025-07-29 17:23 | XMS_ITS | Encounter Summary ---
Author Organization [facility] Healthcare Address [address] [place] [address] Care Team Providers Care Roller Mill Tender Name Role Phone Demond Stark MD Primary Care Provider [phone] Encounter Details Date Type Department Care Team (Late st Contact Info) Description 02/08/2022 Orders Only [facility] Health Information Management [address] [place] [address] Scanning, Provider Social History Tobacco Use Types Packs/Day Years Used Date Smoking Tobacco: Former Smokeless Tobacco: Former Alcohol Use Standard Drinks/Week Comments Yes 0 (1 standard drink = 0.6 oz pur e alcohol) very rarely Sex and Gender Information Value Date Recorded Sex Assigned at Not on file Legal Sex Male 8:49 AM SEARCH COORDINATOR Gender Identity Not on file Sexual Orientation Not on file documented as of this encounter Plan of Treatment Not on file documented as of this encounter Procedures Procedure Name Priority Date/Time Associated Diagnosis Comments SCAN - RADIOLOGY/IMAGING 02/08/2022 documented in this encounter Results * SCAN - RADIOLOGY/IMAGING (02/08/2022) Anatomical Region Laterality Modality Other us Provider Scanning Final Result documented in this encounter Visit Diagnoses Not on filedocumented in this encounter Care Teams Roller Mill Tender Relationship Specialty Start Date End Date Demond Stark MD PCP - General 07/23/11 documented as of this encounter
--- OUTSIDE RECORDS SUMMARY | 2025-07-29 17:23 | XMS_ITS | Clinical Summary ---
Author Organization [facility] Address [address] [place] [address] Phone Care Team Providers Care Pyrometer Mechanic Name Role Phone Unavailable Primary Care Provider Unavailabl e Social History Tobacco Use Types Packs/Day Years Used Date Smoking Tobacco: Never Assessed Sex and Gender Information Value Date Recorded Sex Assigned at Not on file Legal Sex Male 9:18 AM LACROSSE COACH Gender Identity Not on file Sexual Orientation [...] Klebsiella pneumoniae, CRE-CP organism, Sputum 10/09/2023 10/09/2023 JD EDWARDS CONSULTANT-CP Comment:10/09/23 Klebsiella pneumoniae, Sputum 10/09/2023 05/28/[address] [place] [address]
--- OUTSIDE RECORDS SUMMARY | 2025-07-29 17:23 | XMS_ITS | Encounter Summary ---
Author Organization [facility] Address [address] [place] [address] Care Team Providers Care Tailing Hand Name Role Phone Unavailable Primary Care Provider Unavailabl e Encounter Details Date Type Department Care Team (Late st Contact Info) Description 10/10/2023 Lab Requisition [facility] Laboratory Services [address] [place] [address] [place] [address] [place] [address] Social History Tobacco Use Types Packs/Day Years Used Date Smoking Tobacco: Never Assessed Sex and Gender Information Value Date Recorded Sex Assigned at Not on file Legal Sex Male 9:18 AM HRBP Gender Identity Not on file Sexual Orientation Not on file documented as of this encounter Plan of Treatment Not on file documented as of this encounter Procedures Procedure Name Priority Date/Time Associated Diagnosis Comments CARBAPENEM RESISTANT ORGANISM Routine 10/09/2023 9:30 PM HRBP SPUTUM CULTURE WITH GRAM STAIN Routine 10/09/2023 9:30 PM HRBP documented in this encounter Results * (ABNORMAL) CARBAPENEM RESISTANT ORGANISM (10/09/2023 9:30 PM HRBP) ORGANISM TESTED Klebsiella pneumoniae 10/12/2023 4:25 PM HRBP [facility] Carbapenem Resistance Gene Detected(A) Not Detected 10/12/2023 4:25 PM HRBP [facility] KPC (carbapenem-re sistance gene) by PCR DETECTED(A) Not Detected 10/12/2023 4:25 PM HRBP [facility] Sputum Collection / Unknown 10/09/2023 9:30 PM HRBP 10/10/2023 9:54 AM HRBP [facility] - 10/12/2023 4:25 PM HRBP This isolate is a carbapenem-resistant Organism (CLINICAL QUALITY RN) AND is a carbapenamase-pony worker. If inpatient, place patient in Enhanced Contact Isolation. The [employer] Xpert Carba-R PCR assay detects the presence of KPC, NDM, VIM, OXA- 48, and IMP gene sequences that induce carbapenemase production in gram negative bacteria. This test was performed using an FDA approved screening methodology. Erik Chairez MD MICROBIOLOGY - GENERAL ORDERABLE S Final Result [facility]# [id number] [address] [place] [address] * (ABNORMAL) SPUTUM CULTURE WITH GRAM STAIN (10/09/2023 9:30 PM HRBP) CULTURE KLEBSIELLA PNEUMONIAE(A) LUCINA MCG/ML 10/17/2023 10:47 AM HR[facility] Drimki [facility] Comment: This isolate is a Carbapenem-Resistant Organism AND is a carbapenemase pony worker (CLINICAL QUALITY RN-CP). If inpatient, place patient in Enhanced Contact Isolation. Multiple drug resistant organism (MDRO). CULTURE Absent Normal Shahrzad LUCINA MCG/ML 10/17/2023 10:47 AM [facility] Drimki [facility] GRAM STAIN Non diagnostic pattern LUCINA MCG/ML 10/17/2023 10:47 AM [facility] GRAM STAIN No WBC observed 10/17/2023 10:47 AM [facility] Drimki [facility] Sputum Collection / Unknown 10/09/2023 9:30 PM HRBP 10/10/2023 9:54 AM HR[facility] Drimki [facility] - 10/17/2023 10:47 AM HRBP Results called to Kelly Suarez RN, Rosalie [...] [facility] Co de Phone Number [facility]# [id number] [address] [place] [address] documented in this encounter Visit Diagnoses Not on filedocumented in this encounter Additional Health Concerns Infection Onset Date Last Indicated Resolved Time CRE-CP Comment:10/09/23 Klebsiella pneumoniae, Sputum 10/09/2023 10/09/2023 05/28/2024 2:37 PM C DT Multi Drug Resistant Organis m (MDRO) Comment:10/09/23 Klebsiella pneumoniae, CRE-CP organism, Sputum 10/09/2023 10/09/2023 CLINICAL QUALITY RN-CP Comment:10/09/23 Klebsiella pneumoniae, Sputum 10/09/2023 05/28/2024 documented as of this encounter
--- OUTSIDE RECORDS SUMMARY | 2025-07-29 17:23 | XMS_ITS | Clinical Summary ---
Author Organization [facility] Address [address] [place] [address] Care Team Providers Care Server Name Role Phone Demond Stark MD Primary Care Provider [phone] Allergies Active Allergy Reactions Criticality Noted Date Comments Diphenhydramine Hallucinations Medium 11/27/2023 Was not able to sleep and made him more anxious Lisinopril Cough Low Reaction: Cough, Pravastatin Muscle pain Medium Reaction: Muscular Pain, Quetiapine Other (See comments) Low 06/05/2024 Hallucinations, insomnia Simvastatin Muscle pain Medium Reaction: Muscular Pain, Omlvnui-Fhx-Nwu Reductase Inhibitors Muscle pain,Other (See comments) Medium 10/03/2015 Pt reports leg weakness/heavine ss when taking zocor. Medications levothyroxine (SYNTHROID) 112 mcg tablet Take 1 tablet (112 mcg total) by mouth college hire before breakfast Active aspirin 81 mg tablet Take 1 tablet (81 mg total) by mouth daily Active famotidine (PEPCID) 20 mg tablet Take 1 tablet (20 mg total) by mouth nightly as needed 11/26/19 24 Active polyethylene glycol (MIRALAX) 17 gram/dose bulk powder Take 17 g by mouth daily Active pyridoxine (VITAMIN B-6) 50 mg tablet Take 1 tablet (50 mg total) by mouth daily Active loratadine (CLARITIN) 10 mg tablet Take 1 tablet (10 mg total) by mouth daily Active rivaroxaban (Xarelto) 20 mg tablet TAKE 1 TABLET BY MOUTH ONCE DAILY WITH DINNER 90 tablet 1 03/01/20 25 Active losartan (COZAAR) 50 mg tabletIndications:Co ronary arteriosclerosis in [place] artery,Cardiomyopath y, unspecified type (HCC) Take 1 tablet (50 mg total) by mouth daily 90 tablet 3 03/16/20 25 026 Active spironolactone (ALDACTONE) 25 mg tabletIndications:Es sential hypertension Take 1 tablet (25 mg total) by mouth daily 90 tablet 3 06/29/20 25 026 Active Active Problems Problem Noted Date Diagnosed Date Cardiomyopathy 03/16/2025 Nonrheumatic aortic (valve) stenosis 03/16/2025 Dysfunction of right eustachian tube 08/31/2024 Assessment & Plan (10/05/2024 10:54 AM MANUFACTURING SOFTWARE ENGINEER): Avoid ear cleaning techniques Avoid water to ears Follow up in 9 months for right ear tube check, earlier with ear drainage Assessment & Plan (08/31/2024 11:40 AM MANUFACTURING SOFTWARE ENGINEER): Right myringotomy with T-tube placement Risks [...] 07/09/2024 Assessment & Plan (08/31/2024 11:39 AM MANUFACTURING SOFTWARE ENGINEER): Right myringotomy with T-tube placement Risks [...] 08/07/2017 Assessment & Plan (08/07/2017 6:01 PM MANUFACTURING SOFTWARE ENGINEER): Has had elevated LFTs and a fatty liver. Bradycardia 08/07/2017 Assessment & Plan (08/07/2017 5:58 PM MANUFACTURING SOFTWARE ENGINEER): Asymptomatic bradycardia, on low-dose metoprolol which may eventually need to be reduced or discontinued. Traumatic subdural hematoma of neuraxis 10/15/19 17 Overview (12/28/2016): Traumatic subdural hematoma without loss of consciousness, sequela Statin intolerance 10/15/2016 Overview (12/28/2016): Statin intolerance Essential hypertension 07/20/2013 Overview (12/28/2016): Hypertension Assessment & Plan (08/07/2017 5:57 PM MANUFACTURING SOFTWARE ENGINEER): Hypertension is not under good control; [...] HYPERLIPIDEMIA Assessment & Plan (08/07/2017 6:03 PM MANUFACTURING SOFTWARE ENGINEER): Has refued further attempts at statin therapy. History of coronary artery bypass surgery 2009 Overview (12/26/2016): AORTOCORONARY BYPASS Coronary arteriosclerosis in [place] artery 12/20 Overview (08/07/2017): CRNRY ATHRSCL NATVE VSSL 2009: Non STEMI and CABG x3 (HOBSON to the LAD, sequential RA to OM and D1) Assessment & Plan (08/07/2017 6:00 PM MANUFACTURING SOFTWARE ENGINEER): 2009: Non STEMI and CABG x3 [...] 03/04/2018 Assessment & Plan (08/07/2017 5:58 PM MANUFACTURING SOFTWARE ENGINEER): Patient is going to have knee surgery soon and needs preoperative clearance. Coronary artery disease appears stable. Low risk for cardiac event with proposed surgery. 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/2009 03/25/2023 Overview (12/28/2016): SUBENDO INFARCT, SUBSEQ Encounters Date Type Department Care Team Description 06/29/2025 2:00 PM CDT Office Visit [facility] Cardiology [address] [place] [address] Savita Hartmann NP Essential hypertension (Primary Dx); Coronary arteriosclerosis in [place] artery; Longstanding persistent atrial fibrillation (HCC) from Last 3 Months [...] on file Legal Sex Male 8:49 AM MANUFACTURING SOFTWARE ENGINEER Gender Identity Not on file Sexual Orientation Not on file Last Filed Vital Signs Vital Sign Reading Time Taken Comments Blood Pressure 142/86 06/29/2025 2:04 PM CDT Pulse 88 06/29/2025 2:04 PM CDT Temperature 36.3 C (97.4 F) 09/22/2024 1:04 PM MANUFACTURING SOFTWARE ENGINEER Respiratory Rate 18 09/22/2024 1:04 PM MANUFACTURING SOFTWARE ENGINEER Oxygen Saturation 98% 06/29/2025 2:04 PM CDT Inhaled Oxygen Concentration - - Weight 97.5 kg (215 lb) 06/29/2025 2:04 PM CDT Height 185.4 cm (6' 1) 06/29/2025 2:04 PM CDT Body Mass Index 28.37 06/29/2025 2:04 PM CDT Plan of Treatment Health Maintenance Due Date Last Done Comments Depression Screening 1940 Hepatitis B Screening 02/21/1958 Well Visit 65+ 02/21/2005 Zoster Vaccine (3 of 3) 11/13/2022 09/18/2022, 09/14 Influenza Vaccine (#1) 2025 , 08/06/2019, 07/29/2018, Additional history exists Fall Risk Assessment 09/01/2025 09/01/2024 DTaP/Tdap/Td Vaccine (3 - Td or Tdap) 04/05/2035 04/05/2025, 06/28/2020 Pneumococcal vaccine 65+ Completed 06/28/2020, 10/24 Medical Devices Implanted Type Area Hydroelectric Powerplant Supervisor Device Identifier Shelf Expiration Date Model / Serial / Lot [employer] 1.32mm 4.8mm Modify Ear T Tube Ventilation Ultrasil Sterile Blue [id number] - [id number] Implanted:Qty: 1 on 09/22/2024 by Laura Oakes DO at [facility] Right: Ear [employer] 07/13/2034 [id number] / / [id number] Insurance MEDICARE MEDICARE [facility] MEDICARE SUPPLEMENT Care Teams Server Relationship Specialty Start Date End Date Demond Stark MD PCP - General 07/23/11
--- OUTSIDE RECORDS SUMMARY | 2025-07-29 17:23 | XMS_ITS | Encounter Summary ---
Author Organization [facility] Address [address] [place] [address] Care Team Providers Care Scrap Charger Name Role Phone Unavailable Primary Care Provider Unavailabl e Encounter Details Date Type Department Care Team (Late st Contact Info) Description 10/12/2023 Lab Requisition [facility] Laboratory Services [address] [place] [address] [place] [id number] [place] [address] Social History Tobacco Use Types Packs/Day Years Used Date Smoking Tobacco: Never Assessed Sex and Gender Information Value Date Recorded Sex Assigned at Not on file Legal Sex Male 9:18 AM EQUAL OPPORTUNITY OFFICER Gender Identity Not on file Sexual Orientation Not on file documented as of this encounter Plan of Treatment Not on file documented as of this encounter Procedures Procedure Name Priority Date/Time Associated Diagnosis Comments MAGNESIUM LEVEL Routine 10/12/2023 4:00 AM EQUAL OPPORTUNITY OFFICER RENAL FUNCTION PANEL Routine 10/12/2023 4:00 AM EQUAL OPPORTUNITY OFFICER documented in this encounter Results * MAGNESIUM LEVEL (10/12/2023 4:00 AM EQUAL OPPORTUNITY OFFICER) MAGNESIUM 2.3 1.6 - 2.6 mg/dL 10/12/2023 6:02 AM EQUAL OPPORTUNITY OFFICER [facility] Risk Management Solution [facility] Blood Collection / Unknown 10/12/2023 4:00 AM EQUAL OPPORTUNITY OFFICER 10/12/2023 5:07 AM EQUAL OPPORTUNITY OFFICER us Erik Chairez MD CHEMISTRY ORDERABLES Final Resul t [facility] [id number] [place] [address] * (ABNORMAL) RENAL FUNCTION PANEL (10/12/2023 4:00 AM EQUAL OPPORTUNITY OFFICER) SODIUM 139 136 - 145 mmol/L 10/12/2023 6:02 AM [facility] POTASSIUM 4.2 3.4 - 5.1 mmol/L 10/12/2023 6:02 AM [facility] CHLORIDE 102 98 - 107 mmol/L 10/12/2023 6:02 AM [facility] CO2 24 22 - 29 mmol/L 10/12/2023 6:02 AM [facility] CALCIUM 9.5 8.6 - 10.4 mg/dL 10/12/2023 6:02 AM [facility] BUN 43(H) 6 - 20 mg/dL 10/12/2023 6:02 AM [facility] CREATININE 1.20(H) 0.67 - 1.17 mg/dL 10/12/2023 6:02 AM [facility] Comment:The GFR result is no t clinically significant on patients <18 or >70 years of age. GLUCOSE 94 74 - 99 mg/dL 10/12/2023 6:02 AM [facility] ALBUMIN 3.4(L) 3.5 - 5.2 g/dL 10/12/2023 6:02 AM [facility] PHOSPHORUS 4.2 2.5 - 4.5 mg/dL 10/12/2023 6:02 AM [facility] GFR 60 mL/min/1.7 3 sq meter 10/12/2023 6:02 AM [facility] Comment:eGFR calculated with 2020 CKD-EPI equation. Vegetarian diet, extremely high or low muscle mass, and may affect results. Cystatin C with Glomerular Filtration Rate is a suitable alternative for these patients. ANION GAP 13 8 - 16 mmol/L 10/12/2023 6:02 AM [facility] Blood Collection / Unknown 10/12/2023 4:00 AM EQUAL OPPORTUNITY OFFICER 10/12/2023 5:07 AM EQUAL OPPORTUNITY OFFICER Erik Chairez MD CHEMISTRY ORDERABLES Final Resul t [facility] LABOR[facility]ORY SERVICES [facility] CLIA# [id number] [place] [address] documented in this encounter Visit Diagnoses Not on filedocumented in this encounter Additional Health Concerns Infection Onset Date Last Indicated Resolved Time CRE-CP Comment:10/09/23 Klebsiella pneumoniae, Sputum 10/09/2023 10/09/2023 05/28/2024 2:37 PM C DT Multi Drug Resistant Organis m (MDRO) Comment:10/09/23 Klebsiella pneumoniae, CRE-CP organism, Sputum 10/09/2023 10/09/2023 HARDWARE DEVELOPER-CP Comment:10/09/23 Klebsiella pneumoniae, Sputum 10/09/2023 05/28/2024 documented as of this encounter
--- OUTSIDE RECORDS SUMMARY | 2025-07-29 17:23 | XMS_ITS | Encounter Summary ---
Author Organization [facility] Address [address] [place] [address] Care Team Providers Care Strategic Partner Development Manager Name Role Phone Unavailable Primary Care Provider Unavailabl e Encounter Details Date Type Department Care Team (Late st Contact Info) Description 11/05/[address] [facility] Laboratory Services [address] [place] [address] [place] [address] [place] [address] Social History Tobacco Use Types Packs/Day Years Used Date Smoking Tobacco: Never Assessed Sex and Gender Information Value Date Recorded Sex Assigned at Not on file Legal Sex Male 9:18 AM AUTOMOTIVE QUALITY ENGINEER Gender Identity Not on file Sexual Orientation Not on file documented as of this encounter Plan of Treatment Not on file documented as of this encounter Procedures Procedure Name Priority Date/Time Associated Diagnosis Comments DIFFERENTIAL, MANUAL Routine 11/05/2023 3:30 AM AUTOMOTIVE QUALITY ENGINEER CBC WITH DIFFERENTIAL Routine 11/05/2023 3:30 AM AUTOMOTIVE QUALITY ENGINEER documented in this encounter Results * MANUAL DIFFERENTIAL (11/05/2023 3:30 AM AUTOMOTIVE QUALITY ENGINEER) PLATELET EST. Consistent w Count 11/05/2023 6:05 AM AUTOMOTIVE QUALITY ENGINEER [facility] RBC MORPHOLOGY Normal 11/05/2023 6:05 AM AUTOMOTIVE QUALITY ENGINEER [facility] Blood Collection / Unknown 11/05/2023 3:30 AM AUTOMOTIVE QUALITY ENGINEER 11/05/2023 5:05 AM AUTOMOTIVE QUALITY ENGINEER Erik Chairez MD HEMATOLOGY ORDERABLES COM Final Result [facility] CLIA# [id number] [address] [place] [address] * (ABNORMAL) CBC WITH DIFFERENTIAL (11/05/2023 3:30 AM AUTOMOTIVE QUALITY ENGINEER) [facility] WBC 7.5 4.5 - 10.5 K/uL 11/05/2023 6:05 AM [facility] LABORATORY [facility] RBC 3.81(L) 4.50 - 5.40 M/uL 11/05/2023 6:05 AM [facility] HEMOGLOBIN 11.9(L) 13.6 - 16.5 g/dL 11/05/2023 6:05 AM [facility] HEMATOCRIT 35.6(L) 40.0 - 48.0 % 11/05/2023 6:05 AM [facility] [email or web address] [facility] MCV 93.5 82.0 - 99.0 fL 11/05/2023 6:05 AM [facility] [email or web address] [facility] MCH 31.2 27.8 - 34.5 pg 11/05/2023 6:05 AM [facility] [email or web address] [facility] MCHC 33.3 32.5 - 35.5 g/dL 11/05/2023 6:05 AM [facility] [email or web address] [facility] RDW 17.0(H) 11.5 - 14.5 % 11/05/2023 6:05 AM [facility] [email or web address] [facility] PLATELETS 243 160 - 420 K/uL 11/05/2023 6:05 AM [facility] [email or web address] [facility] MPV 9.4 8.7 - 12.7 fL 11/05/2023 6:05 AM [facility] NEUTROPHILS 63 % 11/05/2023 6:05 AM AUTOMOTIVE QUALITY ENGINEER [facility] [email or web address] [facility] LYMPHOCYTES 23 % 11/05/2023 6:05 AM AUTOMOTIVE QUALITY ENGINEER [facility] LABORATORY [facility] MONOCYTES 5 % 11/05/2023 6:05 AM [facility] EOSINOPHILS 9 % 11/05/2023 6:05 AM AUTOMOTIVE QUALITY ENGINEER [facility] LABORATORY [facility] BASOPHILS 1 % 11/05/2023 6:05 AM AUTOMOTIVE QUALITY ENGINEER [facility] LABORATORY [facility] NEUTROPHIL ABSOLUTE 4.70 1.90 - 7.00 K/uL 11/05/2023 6:05 AM AUTOMOTIVE QUALITY ENGINEER [facility] LABORATORY [facility] LYMPHOCYTE ABSOLUTE 1.70 0.70 - 4.50 K/uL 11/05/2023 6:05 AM AUTOMOTIVE QUALITY ENGINEER [facility] LABORATORY [facility] MONOCYTE ABSOLUTE 0.40 0.10 - 1.30 K/uL 11/05/2023 6:05 AM AUTOMOTIVE QUALITY ENGINEER [facility] LABORATORY [facility] EOSINOPHIL ABSOLUTE 0.70 0.00 - 0.70 K/uL 11/05/2023 6:05 AM AUTOMOTIVE QUALITY ENGINEER [facility] LABORATORY SERVICES - [facility] BASOPHILS ABSOLUTE 0.00 0.00 - 0.20 K/uL 11/05/2023 6:05 AM AUTOMOTIVE QUALITY ENGINEER [facility] LABORATORY [facility] Blood Collection / Unknown 11/05/2023 3:30 AM AUTOMOTIVE QUALITY ENGINEER 11/05/2023 5:05 AM AUTOMOTIVE QUALITY ENGINEER Erik Chairez MD HEMATOLOGY ORDERABLES Final Resu lt [facility] CLIA# [id number] [place] [address] documented in this encounter Visit Diagnoses Not on filedocumented in this encounter Additional Health Concerns Infection Onset Date Last Indicated Resolved Time CRE-CP Comment:10/09/23 Klebsiella pneumoniae, Sputum 10/09/2023 10/09/2023 05/28/2024 2:37 PM C DT Multi Drug Resistant Organis m (MDRO) Comment:10/09/23 Klebsiella pneumoniae, CRE-CP organism, Sputum 10/09/2023 10/09/2023 TILE MECHANIC HELPER-CP Comment:10/09/23 Klebsiella pneumoniae, Sputum 10/09/2023 05/28/2024 documented as of this encounter
--- OUTSIDE RECORDS SUMMARY | 2025-07-29 17:23 | XMS_ITS | Encounter Summary ---
Author Organization [facility] Address [address] [place] [address] Care Team Providers Care Hr Specialist Name Role Phone Unavailable Primary Care Provider Unavailabl e Encounter Details Date Type Department Care Team (Late st Contact Info) Description 10/13/[address] [facility] Laboratory Services [address] [place] [address] [place] [address] [place] [address] Social History Tobacco Use Types Packs/Day Years Used Date Smoking Tobacco: Never Assessed Sex and Gender Information Value Date Recorded Sex Assigned at Not on file Legal Sex Male 9:18 AM WORKDAY MANAGER Gender Identity Not on file Sexual Orientation Not on file documented as of this encounter Plan of Treatment Not on file documented as of this encounter Procedures Procedure Name Priority Date/Time Associated Diagnosis Comments MAGNESIUM LEVEL Routine 10/13/2023 4:00 AM WORKDAY MANAGER RENAL FUNCTION PANEL Routine 10/13/2023 4:00 AM WORKDAY MANAGER documented in this encounter Results * MAGNESIUM LEVEL (10/13/2023 4:00 AM WORKDAY MANAGER) MAGNESIUM 2.3 1.6 - 2.6 mg/dL 10/13/2023 5:59 AM WORKDAY MANAGER [facility] [employer] [facility] Blood Collection / Unknown 10/13/2023 4:00 AM WORKDAY MANAGER 10/13/2023 5:20 AM WORKDAY MANAGER us Erik Chairez MD CHEMISTRY ORDERABLES Final [facility]ul [id number] [place] [address] * (ABNORMAL) RENAL FUNCTION PANEL (10/13/2023 4:00 AM WORKDAY MANAGER) SODIUM 138 136 - 145 mmol/L 10/13/2023 5:58 AM [facility] POTASSIUM 4.5 3.4 - 5.1 mmol/L 10/13/2023 5:58 AM [facility] CHLORIDE 100 98 - 107 mmol/L 10/13/2023 5:58 AM [facility] CO2 25 22 - 29 mmol/L 10/13/2023 5:58 AM [facility] CALCIUM 9.6 8.6 - 10.4 mg/dL 10/13/2023 5:58 AM [facility] BUN 39(H) 6 - 20 mg/dL 10/13/2023 5:58 AM [facility] CREATININE 1.09 0.67 - 1.17 mg/dL 10/13/2023 5:58 AM [facility] Comment:The GFR result is no t clinically significant on patients <18 or >70 years of age. GLUCOSE 100(H) 74 - 99 mg/dL 10/13/2023 5:58 AM [facility] ALBUMIN 3.5 3.5 - 5.2 g/dL 10/13/2023 5:58 AM [facility] PHOSPHORUS 4.8(H) 2.5 - 4.5 mg/dL 10/13/2023 5:58 AM [facility] GFR >60 mL/min/1.7 3 sq meter 10/13/2023 5:58 AM [facility] Comment:eGFR calculated with 2020 CKD-EPI equation. Vegetarian diet, extremely high or low muscle mass, and may affect results. Cystatin C with Glomerular Filtration Rate is a suitable alternative for these patients. ANION GAP 13 8 - 16 mmol/L 10/13/2023 5:58 AM [facility] Blood Collection / Unknown 10/13/2023 4:00 AM WORKDAY MANAGER 10/13/2023 5:20 AM WORKDAY MANAGER Erik Chairez MD CHEMISTRY ORDERABLES Final Resul t [facility] LABORATORY SERVICES [facility] CLIA# [id number] [address] [place] [address] documented in this encounter Visit Diagnoses Not on filedocumented in this encounter Additional Health Concerns Infection Onset Date Last Indicated Resolved Time CRE-CP Comment:10/09/23 Klebsiella pneumoniae, Sputum 10/09/2023 10/09/2023 05/28/2024 2:37 PM C DT Multi Drug Resistant Organis m (MDRO) Comment:10/09/23 Klebsiella pneumoniae, CRE-CP organism, Sputum 10/09/2023 10/09/2023 SENIOR PROJECT ENGINEER-CP Comment:10/09/23 Klebsiella pneumoniae, Sputum 10/09/2023 05/28/2024 documented as of this encounter
== END 2025-07-29 08:40 | disposition home or self-care (01) ==
LOC: ANHIMG 08:40
PROVIDERS: PCP Family Medicine; Visit Provider Nurse Practitioner Family
DX: K43.5 Parastomal hernia without obstruction or gangrene (principal); Z87.19 Personal history of other diseases of the digestive system
CPT/HCPCS: 74250

== ENCOUNTER 2025-08-30 13:39 | Outpatient (CLI) | payer MEDICARE, SELFPAY ==
[2025-08-30 14:11] LABS: Anion Gap 6 mmol/L (4-12); Blood Urea Nitrogen 27 mg/dL (9-20); Calcium 9.7 mg/dL (8.4-10.2); Carbon Dioxide 29 mmol/L (22-30); Chloride 105 mmol/L (98-107); Estimated Glomerular Filt Rate 47; Glucose 108 mg/dL (65-110); Potassium 4.8 mmol/L (3.4-5.0); Sodium 140 mmol/L (137-145)
== END 2025-08-30 13:40 | disposition home or self-care (01) ==
PROVIDERS: PCP Family Medicine; Visit Provider Nurse Practitioner Adult Health
DX: I10 Essential (primary) hypertension (principal)
CPT/HCPCS: 36415; 80048